=== PATIENT | female | born 1950 | race Caucasian/White ===

== ENCOUNTER 2022-12-11 20:25 | Emergency (ER) | payer MEDICARE, SELFPAY ==
[2022-12-11 20:26] VITALS: BP 182/103; PULSE 108; RESP 24; TEMP 35.7; O2SAT 108
--- NOTE | 2022-12-11 21:33 | CT_ITS ---
EXAM: CT Abdomen And Pelvis W/ Contrast Injection HISTORY: Suspect bowel obstruction TECHNIQUE: CT Abdomen And Pelvis W/ Contrast Injection A radiation dose optimization technique was used for this scan. COMPARISON: None. LIMITATIONS: None. FINDINGS: LOWER CHEST: 2 mm pulmonary nodule in the lingula. LIVER: Normal. GALLBLADDER/BILE DUCTS: Status post cholecystectomy. Dilated CBD measuring up to 15 mm with moderate intrahepatic biliary ductal dilatation.. PANCREAS: Prominent pancreatic duct measuring 4 mm.. SPLEEN: Normal. ADRENAL GLANDS: Normal. KIDNEYS/URETERS/BLADDER: Cystic changes in the kidneys, overall too small to characterize. No hydroureteronephrosis or radiopaque nephrolithiasis.. RETROPERITONEUM/AORTA: Normal. BOWEL/MESENTERY: Status post small bowel resection and reanastomosis in the midline lower abdomen. Focally dilated small bowel loops at the anastomosis without proximal dilatation, consistent with postsurgical ileus. Otherwise, no bowel dilatation or bowel wall thickening. APPENDIX: Not visualized. PERITONEUM: Normal. REPRODUCTIVE ORGANS: Status post hysterectomy. BONES/SOFT TISSUES: Multilevel degenerative changes. No acute osseous abnormality.. OTHER: None. CT/Abdomen/Pelvis W IV Cont ONLY IMPRESSION: 1. Status post small bowel resection with focal postsurgical ileus at the anastomosis. 2. Moderate intrahepatic and extrahepatic biliary ductal dilatation, may be normal in a postcholecystectomy patient, recommend correlation with biliary biochemistry. 3. Pulmonary nodule in the lingula measuring 2 mm. *Fleischner Society Recommendations (Radiology 2005;237:395-400.) (Follow-up and management of nodules smaller than 8 mm detected incidentally at non-screening CT. Newly detected indeterminate nodule in persons 35 years of age or older.) Low risk patient: Minimal or absent history of smoking and of other known risk factors. <= 4mm: No followup needed >4-6mm: Follow-up CT at 12 months, if unchanged - no further followup >6-8mm: Initial Follow-up CT at 6-12 months, then at 18-24 months if no change >8mm: Follow-up CT at 3, 9, and 24 months; FDG PET scan; and or biopsy High risk patient: History of smoking or of other known risk factors. <= 4mm: Follow-up CT at 12 months, if unchanged - no further followup >4-6mm: Initial Follow-up CT at 6-12 months, then at 18-24 months if no change >6-8mm: Initial Follow-up CT at 3-6 months, then at 9-12 and 24 months if no change >8mm: Follow-up CT at 3, 9, and 24 months; FDG PET scan; and or biopsy Note: Non-solid (ground-glass) or partly solid nodules may require longer follow-up to Electronically Signed: Travon Pantoja MD at 23:38 EDT ,
[2022-12-11 21:50] VITALS: BMI 24.5
[2022-12-11] MEDS: Morphine 4 MG/ML Syringe IV ×2 (22:06→22:45)
[2022-12-11] MEDS: Ondansetron 4 MG/2 ML Vial IV (22:06)
[2022-12-11 22:16] LABS: Absolute Lymphocyte Count 2.86 X10^3/uL (0.83-4.51); Absolute Neutrophil Count 5.3 X10^3/uL (2.0-7.7); Basophil# 0.06 X10^3/uL; Basophil% 0.6 % (0-1); Eosinophils% 2.1 % (0-5); Hematocrit 32.5 % (37-47); Hemoglobin 10.9 g/dL (12.0-15.0); Lymphocyte # 2.86 X10^3/ul (0.83-4.51); Lymphocyte % 30.6 % (19-41); Mean Corp Hgb Conc 33.5 g/dL (32-36); Mean Corpuscular Hgb 29.8 pg (27.0-32.0); Mean Corpuscular Volume 88.8 fL (81-99); Mean Platelet Vol. 9.4 fl (6.2-12.0); Monocyte# 0.87 X10^3/uL; Monocyte% 9.3 % (0-10); NRBC Flagged by Analyzer 0 % (0-5); Neutrophil # 5.33 X10^3/uL (2.7-7.7); Neutrophil % 57.1 % (47-70); Platelet Count 418 K/mm3 (150-450); RBC Distribution Width CV 13.9 % (11.6-14.6); RBC Distribution Width SD 45.2 fl (35.1-43.9); Red Blood Count 3.66 M/mm3 (4.2-5.4); White Blood Count 9.4 K/mm3 (4.4-11.0)
--- NOTE | 2022-12-11 22:19 | ED.VIS.GI ---
HPI HPI - GI History of Present Illness Chief Complaint: Abd Pain Detail of Chief Complaint: Abdominal pain with nausea concern for bowel obstruction Informant: patient and family Abdominal Pain/Flank Pain Onset: Today and Hours Context: Sudden Onset Timing: Continuous Quality: Cramping and Dull Location: - (Diffuse worse upper quadrant) Current Severity: Moderate Maximum Severity: Severe Worsened by: Food Relieved by: Nothing Nausea/Vomiting/Emesis GI Symptom: Positive for Nausea; Negative for Vomiting Diarrhea/Melena/Hematochezia GI Symptom: Negative for Diarrhea, Melena or Hematochezia Associated Symptoms Associated Symptoms: Negative for Dysuria, Frequency, Hematuria or Urgency Narrative Narrative: Patient is a 72-year-old woman with history of bowel obstruction with prior surgeries due to adhesions. She states she had 7 abdominal surgeries. She has had a total of 40% of her bowels removed. She does report nausea without vomiting. Last bowel movement was this morning. She states she passed gas only once today. She states this feels similar to when she has had a bowel obstruction in the past. She is complaining of colicky abdominal pain. She denies fever, chills night sweats. Denies headache, visual, ocular auditory symptoms. She denies cardiac or respiratory symptoms. She denies urologic symptoms. Prior similar symptoms: Yes Recent Illness/Hospitalization: No PFSH COUNTS INCLUDE 234 BEDS AT THE [facility] Medical History (Updated 12/11/22 @ 23:[address] Mika Anderson MD) Hypothyroidism Home Medications alprazolam 1 mg tablet (Xanax) 1 mg PO BID 12/11/22 [History Last Taken Unknown] apixaban 5 mg tablet (Eliquis) 5 mg PO BID 12/11/22 [History Last Taken Unknown] bupropion HCl 150 mg 24 hr tablet, extended release 150 mg PO BID 12/11/22 [History Last Taken Unknown] dicyclomine 10 mg capsule 20 mg PO TIDAC #20 CAPSULES 12/11/22 [Rx Last Taken Unknown] docusate sodium 100 mg capsule 100 mg PO BID 12/11/22 [History Last Taken Unknown] esomeprazole magnesium 20 mg capsule,delayed release 20 mg PO DAILY 12/11/22 [History Last Taken Unknown] ezetimibe 10 mg tablet 10 mg PO DAILY 12/11/22 [History Last Taken Unknown] levothyroxine 50 mcg tablet 50 mcg PO DAILY 12/11/22 [History Last Taken Unknown] ondansetron HCl 4 mg tablet 4 mg PO Q6H PRN Nausea 12/11/22 [History Last Taken Unknown] zolpidem 10 mg tablet (Ambien) 10 mg PO QHS 12/11/22 [History Last Taken Unknown] Allergy/AdvReac Type Severity Reaction Status Date / Time cefdinir [From Omnicef] Allergy Hives Verified 12/11/22 22:27 codeine Allergy NEEDS Verified 12/11/22 22:27 FOLLOW-UP latex Allergy Anaphylaxis Verified 12/11/22 22:27 prochlorperazine Allergy NEEDS Verified 12/11/22 22:47 [From Compazine] FOLLOW-UP shellfish derived Allergy Anaphylaxis Verified 12/11/22 22:27 levofloxacin [From Levaquin] AdvReac Vomiting Verified 12/11/22 22:27 [id number] Reductase AdvReac NEEDS Verified 12/11/22 22:27 Inhibitor FOLLOW-UP Surgical History (Updated 12/11/22 @ 22:32 by Carla Harrison Self) History of appendectomy History of cholecystectomy History of colon surgery Social History Smoking Status: Never smoker EXAM Physical Exam Const Vital Signs: 12/11/22 20:26 12/11/22 22:35 12/11/22 22:35 Temperature 96.3 F L 98 F 98.0 F Temperature Source Temporal Oral Oral Pulse Rate 108 H 90 Respiratory Rate 24 H 18 Blood Pressure 182/103 H 161/93 H Blood Pressure Mean 129 115 Pulse Ox 108 97 Oxygen Delivery Method Room Air Room Air [facility] History & Record Review Discussion w/independent historian: Patient and Family Additional record(s) reviewed:: Prior outpatient record (Patient was seen for abdominal pain July [address] Amador. She had a CAT scan at that time which revealed mild prominence of the biliary duct consistent with cholecystectomy. Pancreas, spleen and adrenal glands, kidney and ureters were unremarkable. The stomach and duodenum was unrem), Prior ED visit and Prior labs Lab Data Attestation: I reviewed the patient's lab results. Lab results narrative: CBC reveals anemia. Differential is unremarkable. Basic metabolic panel reveals a creatinine of 1.32 with a GFR 42. Labs: Laboratory Results - last 24 hr 12/11/22 12/11/22 20:09 20:09 WBC 9.4 RBC 3.66 L Hgb 10.9 L Hct 32.5 L MCV 88.8 MCH 29.8 MCHC 33.5 RDW Std Deviation 45.2 H RDW Coeff of Neno 13.9 Plt Count 418 MPV 9.4 Immature Gran % (Auto) 0.300 Neut % (Auto) 57.1 Lymph % (Auto) 30.6 [place] % (Auto) 9.3 Eos % (Auto) 2.1 Baso % (Auto) 0.6 Absolute Neuts (auto) 5.3 Absolute Lymphs (auto) 2.86 Nucleated RBC % 0 Sodium 139 Potassium 4.1 Chloride 112 H Carbon Dioxide 22.0 Anion Gap 5 BUN 18 Creatinine 1.32 H Estim Creat Clear Calc 30.92 Est GFR (MDRD) Af Amer 51 L Est GFR (MDRD) Non-Af 42 L BUN/Creatinine Ratio 13.6 Glucose 103 Calcium 8.7 Radiography Diagnostic Testing: Clinical Impression(s) from Imaging Studies Abdomen/Pelvis CT 12/11/22 21:33 IMPRESSION: 1. Status post small bowel resection with focal postsurgical ileus at the anastomosis. 2. Moderate intrahepatic and extrahepatic biliary ductal dilatation, may be normal in a postcholecystectomy patient, recommend correlation with biliary biochemistry. 3. Pulmonary nodule in the lingula measuring 2 mm. *Fleischner Society Recommendations (Radiology 2005;237:395-400.) (Follow-up and management of nodules smaller than 8 mm detected incidentally at non-screening CT. Newly detected indeterminate nodule in persons 35 years of age or older.) Low risk patient: Minimal or absent history of smoking and of other known risk factors. <= 4mm: No followup needed >4-6mm: Follow-up CT at 12 months, if unchanged - no further followup >6-8mm: Initial Follow-up CT at 6-12 months, then at 18-24 months if no change >8mm: Follow-up CT at 3, 9, and 24 months; FDG PET scan; and or biopsy High risk patient: History of smoking or of other known risk factors. <= 4mm: Follow-up CT at 12 months, if unchanged - no further followup >4-6mm: Initial Follow-up CT at 6-12 months, then at 18-24 months if no change >6-8mm: Initial Follow-up CT at 3-6 months, then at 9-12 and 24 months if no change >8mm: Follow-up CT at 3, 9, and 24 months; FDG PET scan; and or biopsy Note: Non-solid (ground-glass) or partly solid nodules may require longer follow-up to Electronically Signed: Travon Pantoja MD at 23:38 EDT Reading Location ID and State: [id number] Tel , Service support , Treatment and Re-Evaluation :: Patient was informed of CAT scan results. Patient will receive dose of Bentyl in the emergency [place] and prescription to go home with. She was instructed to increase her Metamucil from once a day to twice a day. Discharge Plan Triage Chief Complaint: Abd Pain ED Provider: Mika Anderson Dx/Rx/DC Orders Clinical Impression: Ileus, Nausea, Hypertension, Anxiety, Acute generalized abdominal pain, Anticoagulant long-term use Instructions: Ileus Prescriptions: New dicyclomine 10 mg capsule 20 mg PO TIDAC Qty: 20 0RF No Action alprazolam [Xanax] 1 mg Tablet 1 mg PO BID ondansetron HCl [Zofran] 4 mg Tablet 4 mg PO Q6H PRN (Reason: Nausea) levothyroxine 50 mcg Tablet 50 mcg PO DAILY docusate sodium 100 mg capsule 100 mg PO BID Label Comments: TAKE 1 CAPSULE BY MOUTH TWICE DAILY zolpidem [Ambien] 10 mg Tablet 10 mg PO QHS esomeprazole magnesium 20 mg capsule,delayed release(DR/EC) 20 mg PO DAILY ezetimibe 10 mg Tablet 10 mg PO DAILY bupropion HCl 150 mg tablet extended release 24 hr 150 mg PO BID Eliquis 5 mg Tablet 5 mg PO BID Primary Care Provider: Care Physician,No Primary Referrals: Care Physician,No Primary [Primary Care Provider] - Doctor,Your [Non-Staff] - 3-5 Days if not improving Activity Restrictions/Additional Instructions: Increase Metamucil to twice a day for the next several days. Disposition Disposition: Home, Self Care
[2022-12-11 22:30] LABS: Anion Gap 5 (5-15); BUN 18 mg/dL (7-18); BUN/Creat Ratio 13.6 RATIO (10-20); Calcium,Total 8.7 mg/dL (8.5-10.1); Chloride 112 mmol/L (98-107); Creatinine, Serum 1.32 mg/dL (0.55-1.02); EST Glomerular Filtration Rate 42 mL/min (>60); Est Glom Filt Rate - Afr Amer 51 mL/min (>60); Estimated Creatinine Clearance 30.92 ml/min; Glucose 103 mg/dL (74-106); Potassium 4.1 mmol/L (3.5-5.1); Sodium Level 139 mmol/L (136-145)
[2022-12-11] MEDS: 0.9% Normal Saline 1,000 ML 150 ML IV (22:34)
[2022-12-11 22:35] VITALS: BP 161/93; PULSE 90; RESP 18; TEMP 36.6; TEMP 36.7; O2SAT 97
[2022-12-11] MEDS: Dicyclomine 10 MG Capsule 20 MG PO (23:58)
[2022-12-12 00:08] VITALS: BP 154/67; PULSE 81; RESP 18; O2SAT 98
== END 2022-12-12 00:35 | disposition home or self-care (01) ==
PROVIDERS: Emergency Provider Emergency Medicine; Visit Provider Emergency Medicine
DX: R10.84 Generalized abdominal pain (principal); K56.7 Ileus, unspecified; Z79.01 Long term (current) use of anticoagulants; I10 Essential (primary) hypertension; F41.9 Anxiety disorder, unspecified; R11.0 Nausea; E03.9 Hypothyroidism, unspecified; Z79.899 Other long term (current) drug therapy; Z90.49 Acquired absence of other specified parts of digestive tract
CPT/HCPCS: 36415; 74177; 80048; 85025; 96374; 96375; 96376; 99284; J7030; Q9967; A4216; J2405

== ENCOUNTER 2023-03-16 03:33 | Inpatient (IN) | payer MEDICARE, SELFPAY ==
[2023-03-16 03:35] VITALS: BP 124/94; PULSE 74; RESP 18; TEMP 35.8; O2SAT 100; BMI 23.4
--- NOTE | 2023-03-16 03:41 | CT_ITS ---
EXAM: CT Abdomen And Pelvis W/ Contrast Injection HISTORY: left sided abd pain, n/v TECHNIQUE: Routine protocol CT abdomen pelvis. IV Contrast: IV 75mL Isovue-370 . Oral Contrast: without. Sagittal and coronal images were reconstructed. RADIATION DOSAGE (If Supplied By Facility): CTDIvol = ( 12.65 ) mGy, DLP = ( 432.94 ) mGycm Individualized dose optimization techniques were used for this CT. COMPARISON: CT abdomen and pelvis 12/11/2022. LIMITATIONS: None. FINDINGS: LOWER CHEST: Dependent atelectasis in the lung bases.. LIVER: Small cyst. GALLBLADDER/BILE DUCTS: Gallbladder surgically absent. Common bile duct and intrahepatic ducts are dilated, not significantly changed compared to prior study.. PANCREAS: Unremarkable. SPLEEN: Unremarkable. ADRENAL GLANDS: Unremarkable. KIDNEYS / URETERS: Unremarkable. BOWEL / MESENTERY: Surgical clips in the mid and lower abdomen. Mild focally dilated small bowel left lower abdomen at the anastomosis with fluid level, similar but slightly increased compared to prior study, possibly postsurgical distortion. No bowel obstruction. Moderate amount stool throughout the colon. APPENDIX: Not identified. PERITONEUM: No free air. No free fluid. VESSELS: Abdominal aorta is normal caliber. RETROPERITONEUM: Unremarkable. REPRODUCTIVE ORGANS: Uterus not identified. BLADDER: Unremarkable. ABDOMINAL WALL: Unremarkable. BONES: No acute abnormality. OTHER: None. CT/Abdomen/Pelvis W IV Cont ONLY IMPRESSION: Mild focally dilated small bowel in the left lower abdomen near the surgical anastomosis, similar but increased compared to prior May BE related to postsurgical change. Focal ileus, enteritis, or partial low-grade small bowel obstruction not entirely excluded. Biliary dilatation is stable compared to prior study postcholecystectomy. Electronically Signed: Jessie Brasher MD at 5:35 EDT ,
--- NOTE | 2023-03-16 03:45 | ED.VIS.GI ---
HPI HPI - GI History of Present Illness Chief Complaint: Abd Pain Informant: patient Abdominal Pain/Flank Pain Onset: Days (2) Context: Gradual Onset Timing: Continuous Quality: Aching Location: - (Throughout the left abdomen) Current Severity: Severe Maximum Severity: Severe Worsened by: Nothing Relieved by: Nothing Nausea/Vomiting/Emesis GI Symptom: Positive for Nausea and Vomiting (2 days ago near the onset but none since) Quality: Positive for Nonbilious; Negative for Blood streaks, Coffee ground or Hematemesis Diarrhea/Melena/Hematochezia GI Symptom: Positive for - (Last bowel movement was a week ago and it was dark but not bloody) Associated Symptoms Associated Symptoms: Negative for Dysuria, Frequency or Hematuria Narrative Narrative: Patient has been having abdominal pain for the last couple days, she vomited near the onset but has not since. Tonight it is started to go into her left low back. She states it feels like some type of bowel pain, however she is not exactly sure; she states she has had 7 surgeries on her bowels in the past. At least one of them was due to adhesions she states. [facility] Medical History (Updated 03/16/23 @ 06:[address] Jose Stanton MD) Hypothyroidism Home Medications alprazolam 1 mg tablet (Xanax) 1 mg PO BID 12/11/22 [History Last Taken Unknown] apixaban 5 mg tablet (Eliquis) 5 mg PO BID 12/11/22 [History Last Taken Unknown] bupropion HCl 150 mg 24 hr tablet, extended release 150 mg PO BID 12/11/22 [History Last Taken Unknown] dicyclomine 10 mg capsule 20 mg (2 x 10 mg) PO TIDAC #20 CAPSULES 12/11/22 [Rx Last Taken Unknown] docusate sodium 100 mg capsule 100 mg PO BID 12/11/22 [History Last Taken Unknown] esomeprazole magnesium 20 mg capsule,delayed release 20 mg PO DAILY 12/11/22 [History Last Taken Unknown] ezetimibe 10 mg tablet 10 mg PO DAILY 12/11/22 [History Last Taken Unknown] levothyroxine 50 mcg tablet 50 mcg PO DAILY 12/11/22 [History Last Taken Unknown] ondansetron HCl 4 mg tablet 4 mg PO Q6H PRN Nausea 12/11/22 [History Last Taken Unknown] zolpidem 10 mg tablet (Ambien) 10 mg PO QHS 12/11/22 [History Last Taken Unknown] Allergy/AdvReac Type Severity Reaction Status Date / Time cefdinir [From Omnicef] Allergy Hives Verified 12/11/22 22:27 codeine Allergy NEEDS Verified 12/11/22 22:27 FOLLOW-UP latex Allergy Anaphylaxis Verified 12/11/22 22:27 prochlorperazine Allergy NEEDS Verified 12/11/22 22:47 [From Compazine] FOLLOW-UP shellfish derived Allergy Anaphylaxis Verified 03/16/23 03:34 levofloxacin [From Levaquin] AdvReac Vomiting Verified 12/11/22 22:27 [id number] Reductase AdvReac NEEDS Verified 12/11/22 22:27 Inhibitor FOLLOW-UP Surgical History History of appendectomy History of cholecystectomy History of colon surgery Social History Smoking Status: Never smoker ROS ROS ED Constitutional Constitutional ED: Reports malaise and poor appetite; Denies chills or fever(s) Eyes Eyes: Denies change in vision or diplopia ENT ENT ED: Denies rhinorrhea or sore throat Cardiovascular Cardiovascular: Denies chest pain or palpitations Respiratory/Chest Respiratory/Chest: Denies cough or dyspnea Gastrointestinal Gastrointestinal: Reports abdominal pain, nausea and vomiting; Denies diarrhea, hematemesis or hematochezia Genitourinary Genitourinary ED: Reports decreased urination; Denies dysuria or hematuria Musculoskeletal Musculoskeletal: Reports back pain; Denies neck pain Integumentary Denies abscess or rash Neurologic Neurologic: Denies headache(s), paresthesias or weakness Psychiatric Psychiatric: Denies anxiety or suicidal thoughts EXAM Physical Exam Const Vital Signs: 03/16/23 03:35 Temperature 96.5 F L Temperature Source Temporal Pulse Rate 74 Respiratory Rate 18 Blood Pressure 124/94 H Blood Pressure Mean 104 Pulse Ox 100 Positive well nourished and well developed General Appearance ED: well developed and NAD HEENT Reports moist mucous membranes normocephalic and atraumatic Eyes PERRL and EOMs intact bilaterally Neck full ROM and supple Resp normal respiratory effort and clear to auscultation bilaterally Cardio regular rate, regular rhythm and no murmurs GI non-distended GI Narrative: Moderate to severe tenderness throughout the left side without guarding or rebound tenderness. No pulsatile mass palpable. Auscultation: normoactive bowel sounds Palpation: soft Back/Spine no CVA tenderness General Back: other FROM Extremity normal to inspection General Extremety ED: Negative for edema, pulses abnormal or tenderness General Extremity: Negative for edema or pulses abnormal Neuro oriented x3, CN's II-XII intact bilaterally and no sensory deficits noted Sensorium / Orientation: awake and alert Motor Exam: strength 5/5 throughout Skin no rashes or lesions noted and no wounds MDM MDM MDM Narrative Medical decision making narrative: CT obtained in addition to labs, IV fluids, Zofran, morphine given for symptoms. I reviewed the CT images and the interpretation which I agree with, basically there is a narrowing at the anastomosis which is where the patient is hurting in the left lower quadrant mostly, that may be consistent with a partial small bowel obstruction, difficult to tell according to the radiologist if this is just postsurgical change. Given her focal symptoms and the fact that she does not have pain here all the time, patient has been fairly miserable over the past 48 hours or so, lives by herself, and agrees with staying in the hospital for further evaluation. Will maintain n.p.o. Discussed with surgery Dr. Umanzor, who reviewed the images as well. He recommends placing an NG in the ED in preparation for small bowel follow-through. Lab Data Attestation: I reviewed the patient's lab results. Labs: Laboratory Results - last 24 hr 03/16/23 03/16/23 03:45 05:13 WBC 8.4 RBC 3.96 L Hgb 11.4 L Hct 35.4 L MCV 89.4 MCH 28.8 MCHC 32.2 RDW Std Deviation 49.0 H RDW Coeff of Neno 14.7 H Plt Count 361 MPV 10.0 Immature Gran % (Auto) 0.400 Neut % (Auto) 48.5 Lymph % (Auto) 40.6 [place] % (Auto) 8.3 Eos % (Auto) 1.1 Baso % (Auto) 1.1 H Absolute Neuts (auto) 4.1 Absolute Lymphs (auto) 3.41 Nucleated RBC % 0 Sodium 139 Potassium 4.1 Chloride 109 H Carbon Dioxide 23.0 Anion Gap 7 BUN 18 Creatinine 1.49 H Estim Creat Clear Calc 26.13 Est GFR (MDRD) Af Amer 44 L Est GFR (MDRD) Non-Af 37 L BUN/Creatinine Ratio 12.1 Glucose 100 Calcium 9.0 Total Bilirubin 0.60 AST 18 ALT 18 Alkaline Phosphatase 105 Total Protein 7.5 Albumin 3.6 Globulin 3.9 Albumin/Globulin Ratio 0.9 Urine Color Yellow Urine Clarity Clear Urine pH 6.0 Ur Specific [place] 1.010 Urine Protein Negative Urine Glucose (UA) Normal Urine Ketones Negative Urine Occult Blood Negative Urine Nitrite Negative Urine Bilirubin Negative Urine Urobilinogen Normal Ur Leukocyte Esterase 25 H Urine RBC 0 SEEN Urine WBC 0-5 SEEN Ur Squamous Epith Cells 0 SEEN Urine Bacteria 0 SEEN Urine Mucus 0 SEEN Radiography Diagnostic Testing: Clinical Impression(s) from Imaging Studies Abdomen/Pelvis CT 03/16/23 03:41 IMPRESSION: Mild focally dilated small bowel in the left lower abdomen near the surgical anastomosis, similar but increased compared to prior May BE related to postsurgical change. Focal ileus, enteritis, or partial low-grade small bowel obstruction not entirely excluded. Biliary dilatation is stable compared to prior study postcholecystectomy. Electronically Signed: Jessie Brasher MD at 5:35 EDT , Management Discussion w/another healthcare provider: Hospitalist and Lead Worker Of Housekeeping And Laundry (Surgery) Discharge Plan Dx/Rx/DC Orders Clinical Impression: Partial small bowel obstruction Disposition Disposition: Acute Care Hospital [facility]
[2023-03-16 03:50] LABS: Absolute Lymphocyte Count 3.41 X10^3/uL (0.83-4.51); Absolute Neutrophil Count 4.1 X10^3/uL (2.0-7.7); Basophil# 0.09 X10^3/uL; Basophil% 1.1 % (0-1); Eosinophil# 0.09 X10^3/uL; Eosinophils% 1.1 % (0-5); Hematocrit 35.4 % (37-47); Hemoglobin 11.4 g/dL (12.0-15.0); Lymphocyte # 3.41 X10^3/ul (0.83-4.51); Lymphocyte % 40.6 % (19-41); Mean Corp Hgb Conc 32.2 g/dL (32-36); Mean Corpuscular Hgb 28.8 pg (27.0-32.0); Mean Corpuscular Volume 89.4 fL (81-99); Monocyte% 8.3 % (0-10); NRBC Flagged by Analyzer 0 % (0-5); Neutrophil # 4.07 X10^3/uL (2.7-7.7); Neutrophil % 48.5 % (47-70); Platelet Count 361 K/mm3 (150-450); RBC Distribution Width CV 14.7 % (11.6-14.6); Red Blood Count 3.96 M/mm3 (4.2-5.4); White Blood Count 8.4 K/mm3 (4.4-11.0)
[2023-03-16] MEDS: 0.9% Normal Saline 1,000 ML 1000 ML IV (03:56)
[2023-03-16] MEDS: Ondansetron 4 MG/2 ML Vial IV ×3 (03:56→15:17)
[2023-03-16] MEDS: Morphine 4 MG/ML Syringe IV (03:57)
[2023-03-16 04:28] LABS: ALB/GLOB Ratio 0.9 RATIO (0.9-2.4); AST(SGOT) 18 U/L (15-37); Alanine Aminotransfer ALT/SGPT 18 U/L (13-56); Albumin, Serum 3.6 g/dL (3.2-5.0); Alkaline Phosphatase 105 U/L (45-117); Anion Gap 7 (5-15); BUN 18 mg/dL (7-18); BUN/Creat Ratio 12.1 RATIO (10-20); Chloride 109 mmol/L (98-107); Creatinine, Serum 1.49 mg/dL (0.55-1.02); EST Glomerular Filtration Rate 37 mL/min (>60); Est Glom Filt Rate - Afr Amer 44 mL/min (>60); Estimated Creatinine Clearance 26.13 ml/min; Globulin 3.9 g/dL (2.2-4.2); Glucose 100 mg/dL (74-106); Potassium 4.1 mmol/L (3.5-5.1); Protein, Total 7.5 g/dL (6.4-8.2); Sodium Level 139 mmol/L (136-145)
[2023-03-16 05:19] LABS: Bacteria 0 SEEN /hpf (None Seen); Mucous, Urine 0 SEEN /hpf (<or=2+); Red Blood Cells-Urine 0 SEEN /hpf (0-5); Squamous Epithelial Cells - UA 0 SEEN /hpf (5-10)
[2023-03-16 05:20] LABS: Color, Urine Yellow (Yellow); Glucose, Dipstick Normal (Normal); Ketone-Dipstick Negative (Negative); Leukocyte Esterase-Dipstick 25 /ul (Negative); Nitrite-Dipstick Negative (Negative); Occult Blood-Urine Negative /ul (Negative); Protein-Dipstick Negative (Negative); Urine Bilirubin Dipstick Negative (Negative); Urine Clarity Clear (Clear); Urine Urobilinogen Normal (Normal)
[2023-03-16 05:34] LABS: White Blood Cells 0-5 SEEN /hpf (0-5)
--- NOTE | 2023-03-16 06:22 | RAD_ITS ---
INDICATION: NG Insertion EXAMINATION/TECHNIQUE: X-RAY - XR Abdomen 1 View portable. 6:43 AM COMPARISON: FINDINGS: Single view included the mid chest and upper abdomen. Tip of the nasogastric tube is in the mid stomach. No dilated bowel in the upper abdomen. Lung bases are not well assessed due to the technique. RAD/Abdomen Single View (Portable) IMPRESSION: NG tube as described. Electronically Signed: Jessie Brasher MD at 7:06 EDT ,
--- NOTE | 2023-03-16 06:31 | HP.PCM.HOS_ITS ---
HPI - General General Date of Admission: 03/16/23 Date of Service: 03/16/23 Chief Complaint: Abdominal pain, N/V. HPI Narrative The patient is a 72 y/o F w/ PMHx: Hypothyroidism, Anxiety and Depression, Hx VTE, HLD, GERD, Hx SBO s/p 7 prior abdominal surgeries including bowel resection who presents to the [facility] ED on 03/16/23 with history of onset abdominal pain over the last 2 days continuous in nature, aching, associated with nausea and emesis with pain primarily focally in the left lower quadrant and no severe marked distention however patient reports last bowel movement the Sunday prior and last flatus on day prior earlier in the day prompting eventual ED evaluation secondary to concerns bowel related with associated decreased oral intake. She does report that this is different than her prior bowel obstructions and the fact that is more focal pain and more severe and sharp. She rates her pain initially 10 of 10 in severity but following current interventions 5 out of 10 in severity. Work-up in the ED included T96.5, heart rate 74, BP 124/94, respiratory rate 18, #room air, CBC with WC 8.4, hemoglobin 11.4, MCV 89.4, pl atelet 361 without marked shift, CMP with chloride 109, BUN/creatinine 18/1.49, medic profile unremarkable, urinalysis unremarkable, CT abdomen pelvis with mildly focally dilated small bowel in the left lower abdomen near the surgical anastomosis similar but increased compared to prior possibly related to postsurgical change however focal ileus, enteritis or partial low-grade small bowel obstruction cannot be entirely excluded, biliary dilatation is stable compared to prior study postcholecystectomy. In the ED patient ministered 1 L normal saline, Zofran 4 mg IV x1 as well as morphine 4 mg IV x1. ED discussed case with Dr. Umanzor, general surgery who requested NG tube be placed and small bowel follow-through be initiated. [facility] Medical History (Updated 03/16/23 @ 06:[address] Jessica Thomas MD) Anxiety and depression GERD (gastroesophageal reflux disease) History of small bowel obstruction History of venous thromboembolism HLD (hyperlipidemia) Hypothyroidism Home Medications alprazolam 1 mg tablet (Xanax) 1 mg PO BID 12/11/22 [History Last Taken Unknown] apixaban 5 mg tablet (Eliquis) 5 mg PO BID 12/11/22 [History Last Taken Unknown] bupropion HCl 150 mg 24 hr tablet, extended release 150 mg PO BID 12/11/22 [History Last Taken Unknown] dicyclomine 10 mg capsule 20 mg (2 x 10 mg) PO TIDAC #20 CAPSULES 12/11/22 [Rx Last Taken Unknown] docusate sodium 100 mg capsule 100 mg PO BID 12/11/22 [History Last Taken Unknown] esomeprazole magnesium 20 mg capsule,delayed release 20 mg PO DAILY 12/11/22 [History Last Taken Unknown] ezetimibe 10 mg tablet 10 mg PO DAILY 12/11/22 [History Last Taken Unknown] levothyroxine 50 mcg tablet 50 mcg PO DAILY 12/11/22 [History Last Taken Unknown] ondansetron HCl 4 mg tablet 4 mg PO Q6H PRN Nausea 12/11/22 [History Last Taken Unknown] zolpidem 10 mg tablet (Ambien) 10 mg PO QHS 12/11/22 [History Last Taken Unknown] Allergy/AdvReac Type Severity Reaction Status Date / Time cefdinir [From Omnicef] Allergy Hives Verified 12/11/22 22:27 codeine Allergy NEEDS Verified 12/11/22 22:27 FOLLOW-UP latex Allergy Anaphylaxis Verified 12/11/22 22:27 prochlorperazine Allergy NEEDS Verified 12/11/22 22:47 [From Compazine] FOLLOW-UP shellfish derived Allergy Anaphylaxis Verified 03/16/23 03:34 levofloxacin [From Levaquin] AdvReac Vomiting Verified 12/11/22 22:27 [id number]-[id number] Reductase AdvReac NEEDS Verified 12/11/22 22:27 Inhibitor FOLLOW-UP Family History (Updated 03/16/23 @ 06:[address] Jessica Thomas MD) Mother Heart disease COPD (chronic obstructive pulmonary disease) Father Heart disease Hypertension CAD (coronary artery disease) Myocardial infarction Surgical History (Updated 03/16/23 @ 06:[address] Jessica Thomas MD) History of appendectomy History of cholecystectomy History of colon surgery History of total abdominal hysterectomy Social History (Updated 03/16/23 @ 06:[address] Jessica Thomas MD) household members: none Smoking Status: Never smoker alcohol intake: never substance use type: does not use ROS ROS Narrative Admission Review of Systems: CONSTITUTIONAL: No weight loss, fever, chills, + weakness or fatigue. HEENT: Eyes: No visual loss, blurred vision, double vision or yellow sclerae. Ears, Nose, Throat: No hearing loss, sneezing, congestion, runny nose or sore throat. SKIN: No rash or itching, lesions, wounds. CARDIOVASCULAR: No chest pain, chest pressure or chest discomfort, palpitations, edema, orthopnea, syncopal events. RESPIRATORY: No shortness of breath, cough or sputum, wheezing, hemoptysis. GASTROINTESTINAL: + anorexia, nausea, vomiting, abdominal pain, lack of flatus, decreased BM history. No melena, BRBPR. GENITOURINARY: No dysuria, frequency, urgency or retention. NEUROLOGICAL: No headache, dizziness, syncope, paralysis, ataxia, numbness or tingling in the extremities, focal weakness, change in bowel or bladder control, seizure. MUSCULOSKELETAL: + muscle, back pain, joint pain or stiffness. HEMATOLOGIC: No anemia, bleeding or bruising. LYMPHATICS: No enlarged nodes. No history of splenectomy. PSYCHIATRIC: + history of depression or anxiety. ENDOCRINOLOGIC: No reports of sweating, cold or heat intolerance. No polyuria or polydipsia. ALLERGIES: + History of hives and anaphylaxis. Vital Signs Vital Signs Vital Signs: 03/16/23 03:35 Temperature 96.5 F L Temperature Source Temporal Pulse Rate 74 Respiratory Rate 18 Blood Pressure 124/94 H Blood Pressure Mean 104 Pulse Ox 100 Weight Weight: 124 lb 1.924 oz Body Mass Index (BMI) 23.4 Physical Exam Narrative Physical Examination: General: Awake, alert, oriented x 3 and cooperative, seated upright in the bed, fatigued, reports pain currently 5 out of 10 in severity in the left lower quadrant, intermittently anxious and occasionally near tearful. Skin: Normal color, normal turgor, no icterus, no cyanosis. HEENT: AT/NC, EOMI, PERRLA, dry MM, no carotid bruits or JVD noted. Lungs: CTA bilaterally, moderate effort, mild decrease BL bases, no rales, ronchi or wheezing. Heart: Regular rate and rhythm; no gallop, rub audible. Abdomen: Soft, notable tenderness to palpation primarily in the left lower quadrant with voluntary guarding, no marked distention obvious, mildly reduced bowel sounds in the left lower quadrant and left upper quadrant, hyperactive bowel sounds right lower quadrant, no obvious HSM but difficult evaluation given pain. Extremities: No cyanosis, clubbing, or edema. Neurological: Patient awake, alert, oriented as noted, cognitive function intac t; pupils equally reactive to light and accommodation, cranial nerves II-XII grossly normal, moving all 4 extremities, no focal deficits, strength moderately to severely global decrease secondary to acute presentation. Psychiatric: Affect appears anxious, near tearful when discussing her mother who passed of COPD, underlying history of anxiety and depression. Results Lab / Micro Data 03/16/23 03:45 03/16/23 03:45 Labs: Laboratory Results - last 24 hr 03/16/23 03:45: WBC 8.4, RBC 3.96 L, Hgb 11.4 L, Hct 35.4 L, MCV 89.4, MCH 28.8, MCHC 32.2, RDW Std Deviation 49.0 H, RDW Coeff of Neno 14.7 H, Plt Count 361, MPV 10.0, Immature Gran % (Auto) 0.400, Neut % (Auto) 48.5, Lymph % (Auto) 40.6, [place] % (Auto) 8.3, Eos % (Auto) 1.1, Baso % (Auto) 1.1 H, Absolute Neuts (auto) 4.1, Absolute Lymphs (auto) 3.41, Nucleated RBC % 0, Sodium 139, Potassium 4.1, Chloride 109 H, Carbon Dioxide 23.0, Anion Gap 7, BUN 18, Creatinine 1.49 H, Estim Creat Clear Calc 26.13, Est GFR (MDRD) Af Amer 44 L, Est GFR (MDRD) Non-Af 37 L, BUN/Creatinine Ratio 12.1, Glucose 100, Calcium 9.0, Total Bilirubin 0.60, AST 18, ALT 18, Alkaline Phosphatase 105, Total Protein 7.5, Albumin 3.6, Globulin 3.9, Albumin/Globulin Ratio 0.9 03/16/23 05:13: Urine Color Yellow, Urine Clarity Clear, Urine pH 6.0, Ur Specific Dorothy 1.010, Urine Protein Negative, Urine Glucose (UA) Normal, Urine Ketones Negative, Urine Occult Blood Negative, Urine Nitrite Negative, Urine Bilirubin Negative, Urine Urobilinogen Normal, Ur Leukocyte Esterase 25 H, Urine RBC 0 SEEN, Urine WBC 0-5 SEEN, Ur Squamous Epith Cells 0 SEEN, Urine Bacteria 0 SEEN, Urine Mucus 0 SEEN Radiology Impression Abdomen/Pelvis CT 03/16/23 03:41 IMPRESSION: Mild focally dilated small bowel in the left lower abdomen near the surgical anastomosis, similar but increased compared to prior May BE related to postsurgical change. Focal ileus, enteritis, or partial low-grade small bowel obstruction not entirely excluded. Biliary dilatation is stable compared to prior study postcholecystectomy. Electronically Signed: Jessie Brasher MD at 5:35 EDT , Assessment & Plan Assessment/Plan (1) Partial small bowel obstruction: PLAN: Plan The patient is a 72 y/o F w/ PMHx: Hypothyroidism, Anxiety and Depression, Hx VTE, HLD, GERD, Hx SBO s/p 7 prior abdominal surgeries including bowel resection who presents to the [facility] ED on 03/16/23 with history of onset abdominal pain over the last 2 days continuous in nature, aching, associated with nausea and emesis with pain primarily focally in the left lower quadrant and no severe marked distention however patient reports last bowel movement the Sunday prior and last flatus on day prior earlier in the day prompting eventual ED evaluation secondary to concerns bowel related with associated decreased oral intake. #1. Acute intractable abdominal pain secondary to possible partial low-grade small bowel obstruction: CT abdomen pelvis with mildly focally dilated small bowel in the left lower abdomen near the surgical anastomosis similar but increased compared to prior possibly related to postsurgical change however focal ileus, enteritis or partial low-grade small bowel obstruction cannot be entirely excluded, biliary dilatation is stable compared to prior study postcholecystectomy. Will admit to MS, maintain on IVFs, continue NGT to suction, strict I&Os, IV pain/anti-emetics PRN, serial KUB as needed to montior bowel function, PPI IV, maintain NPO on bowel rest. General surgery consulted and current plan for small bowel follow-through. #2. Anxiety and depression: We will temporally hold patient home bupropion regimen, will have as needed low-dose Ativan for anxiety and hold her Xanax regimen. #3. Hypothyroidism: We will temporally hold patient home levothyroxine regimen. #4. Hyperlipidemia: We will hold patient home ezetimibe regimen. #5. History VTE: Notes history of remote DVT 3-4 years prior and was told at that time she would require continued chronic anticoagulation, but unclear exact reason for continuation. #6. GERD: We will maintain IV PPI. #7. DVT prophylaxis: We will temporally hold patient home Eliquis regimen and per surgery request hold on further anticoagulation in case of OR needs. #8. Code status: Full Code. Admission Evaluation Time spent evaluating chart, patient history, patient evaluation, care planning and discussion with specialists: 75 minutes. Charges/Coding Visit Charges Inpatient E&M: 91546 Init Hosp L3
[2023-03-16 06:45] VITALS: BP 153/112; PULSE 85; RESP 18; TEMP 36.4; O2SAT 99
[2023-03-16 07:37] VITALS: BMI 22.6
[2023-03-16 07:53] VITALS: BP 144/97; PULSE 69; RESP 16; TEMP 36.4; O2SAT 100
[2023-03-16] MEDS: 0.9% Normal Saline 1,000 ML 100 ML IV ×2 (08:08→17:22)
--- NOTE | 2023-03-16 08:50 | RAD_ITS ---
Small bowel series Indication: Small bowel obstruction Technique: Immediate and 6 hour abdomen images obtained following injection of Gastrografin through existing esophagogastric tube. No fluoroscopy time. 2 overhead images. FINDINGS: Initial image demonstrates normal opacification of the stomach and proximal small bowel. No dilated loops of air-filled small bowel. At 6 hours, there is normal passage of contrast into the colon. No dilated small bowel on 6 hour image. RAD/Small Bowel Series Only IMPRESSION: 1. Successful Gastrografin challenge. No bowel obstruction. Documentation of contrast in the colon at 6 hours. Electronically Signed: Fox Han (Brooks), at 16:19 EDT ,
[2023-03-16] MEDS: Morphine 2 MG/ML Syringe IV ×4 (09:08→23:38)
--- NOTE | 2023-03-16 10:57 | EX.PCM.CON.S ---
Assessment & Plan Assessment/Plan (1) Partial small bowel obstruction: PLAN: This is a 72-year-old female, with a past history of multiple small bowel obstructions requiring surgery, who presents with signs and symptoms of abdominal pain, constipation, and nausea. CT suggests possible partial small bowel obstruction. Patient has tenderness on exam. In my review of the patient's history I clarify with her that her prior resections involved her small intestine and not her colon as was previously reported. Given the large amount of small intestine resected, she admits she is now considered short gut syndrome. This fits better with her CT imaging which shows normal length colon, but abbreviated small bowel segment with a anastomosis within the mid small bowel. There also appears to be some chronic dilation of this anastomosis. I did not appreciate any transition points within the small bowel. I did observe significant fecal burden throughout the entirety of the colon and rectum. Therefore I have shared with Mrs. Escobar that I would recommend transfer to a tertiary facility should she proved to have a small bowel obstruction with need for intervention, but that I felt this was unlikely based on her history and imaging findings. My reasoning for this recommendation for transfer includes the inability to Nicole make total parenteral nutrition to an individual patient's needs. To better investigate her current bowel function I suggested we initiate a small bowel follow-through via her nasogastric tube. This was initiated this morning and has been followed up with a 6-hour plain film at 1500 this afternoon. This study shows transit of contrast throughout her bowel, but with patient is visited 45 minutes later she still denies any return of bowel function apart from a single episode of flatus. She does report improvements in her abdominal discomfort?particularly of her left lower abdominal quadrant. ? Await return of bowel function ? If patient experiences return of bowel function with plan to remove her nasogastric tube and initiate liquid diet (2) Constipation: HPI Consult Data Date of Consult: 03/16/23 HPI Narrative Reason for Consultation: Small bowel obstruction HPI Narrative: KAITLYN ESCOBAR, is a 72 F who presents to [facility] with complaints of constipation and abdominal pain. She reports her last bowel movement was 03/11/2023 and she began with pain of her abdomen on 03/14/2023. She notified her primary care provider of this change and she was advised to present to the hospital, but she elected to wait an additional day when the pain persisted she decided to present. Along with the above symptoms she has some associated nausea but no vomiting. Considering her constipation, she states that she was taking MiraLAX twice a day to try to have a bowel movement. She denies any use of pain medications at home. When asked about her fluid intake, she states she prefers to drink iced tea. ER work-up was notable for normal CMP, but CT imaging of the abdomen pelvis showed concern for possible small bowel obstruction?occasioning this consult. NG tube was placed by emergency medicine and patient was admitted to the floor. Patient has a history of hysterectomy, appendectomy, cholecystectomy, small bowel resection, and several adhesiolysis procedures. She states her trouble with bowel obstructions began following a bleeding delivery at the age of 32 or 33. She estimates that she has had 7 prior admissions for small bowel obstructions in her lifetime. She notes that the most recent obstruction led to her having 40% of her lower bowel removed. She states this procedure was further complicated by the development of abscesses TPN administration. This was reportedly done by Dr. Chicas formerly of [facility] who has since moved to [place]. 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 Ms. Escobar denies any recent colonoscopies and states that she had a single colonoscopy approximately 20 years ago, but reports that her last evaluation for this procedure was in [facility] and she was advised to forego any colonoscopies as she was more likely to be at risk for colon perforation and development of colon cancer. [facility] Medical History (Updated 03/16/23 @ 17:[address] Lobo Umanzor MD) Anxiety and depression Chronic anemia CKD (chronic kidney disease), stage III Depression DVT (deep venous thrombosis) GERD (gastroesophageal reflux disease) History of small bowel obstruction History of venous thromboembolism HLD (hyperlipidemia) Hyperthyroidism Hypothyroidism Irritable bowel Scarlet fever Home Medications alprazolam 1 mg tablet (Xanax) 1 mg PO BID 12/11/22 [History Last Taken Unknown] apixaban 5 mg tablet (Eliquis) 5 mg PO BID 12/11/22 [History Last Taken Unknown] bupropion HCl 150 mg 24 hr tablet, extended release 150 mg PO BID 12/11/22 [History Last Taken Unknown] dicyclomine 10 mg capsule 20 mg (2 x 10 mg) PO TIDAC #20 CAPSULES 12/11/22 [Rx Last Taken Unknown] docusate sodium 100 mg capsule 100 mg PO BID 12/11/22 [History Last Taken Unknown] esomeprazole magnesium 20 mg capsule,delayed release 20 mg PO DAILY 12/11/22 [History Last Taken Unknown] ezetimibe 10 mg tablet 10 mg PO DAILY 12/11/22 [History Last Taken Unknown] levothyroxine 50 mcg tablet 50 mcg PO DAILY 12/11/22 [History Last Taken Unknown] ondansetron HCl 4 mg tablet 4 mg PO Q6H PRN Nausea 12/11/22 [History Last Taken Unknown] zolpidem 10 mg tablet (Ambien) 10 mg PO QHS 12/11/22 [History Last Taken Unknown] Allergy/AdvReac Type Severity Reaction Status Date / Time cefdinir [From Omnicef] Allergy Hives Verified 12/11/22 22:27 codeine Allergy NEEDS Verified 12/11/22 22:27 FOLLOW-UP latex Allergy Anaphylaxis Verified 12/11/22 22:27 prochlorperazine Allergy NEEDS Verified 12/11/22 22:47 [From Compazine] FOLLOW-UP shellfish derived Allergy Anaphylaxis Verified 03/16/23 03:34 levofloxacin [From Levaquin] AdvReac Vomiting Verified 12/11/22 22:27 Tnbywbu-[id number]-SxK Reductase AdvReac NEEDS Verified 12/11/22 22:27 Inhibitor FOLLOW-UP Family History (Updated 03/16/23 @ 06:[address] Jessica Thomas MD) Mother Heart disease COPD (chronic obstructive pulmonary disease) Father Heart disease Hypertension CAD (coronary artery disease) Myocardial infarction Surgical History (Updated 03/16/23 @ 06:[address] Jessica Thomas MD) History of appendectomy History of cholecystectomy History of colon surgery History of total abdominal hysterectomy Social History (Updated 03/16/23 @ 06:[address] Jessica Thomas MD) household members: none Smoking Status: Never smoker alcohol intake: never substance use type: does not use ROS Gastrointestinal Gastrointestinal: Reports change in bowel habits and constipation Physical Exam Const alert and oriented x3 Constitutional Narrative: Patient appears mildly distressed and uncomfortable General Appearance: cooperative HEENT HEENT Narrative: Nasogastric tube placed via left nare Resp normal respiratory effort GI GI Narrative: Mildly distended, numerous scars across anterior abdominal wall including midline laparotomy and right paramedian incision (patient reports this was used for open cholecystectomy). No visible hernias. Patient is diffusely tender to palpation with voluntary guarding present. Nasogastric tube output is thin serous fluid. Lab / Micro Data 03/16/23 03:45 03/16/23 03:45 Labs: Laboratory Results - last 24 hr 03/16/23 03:45: WBC 8.4, RBC 3.96 L, Hgb 11.4 L, Hct 35.4 L, MCV 89.4, MCH 28.8, MCHC 32.2, RDW Std Deviation 49.0 H, RDW Coeff of Neno 14.7 H, Plt Count 361, MPV 10.0, Immature Gran % (Auto) 0.400, Neut % (Auto) 48.5, Lymph % (Auto) 40.6, [place] % (Auto) 8.3, Eos % (Auto) 1.1, Baso % (Auto) 1.1 H, Absolute Neuts (auto) 4.1, Absolute Lymphs (auto) 3.41, Nucleated RBC % 0, Sodium 139, Potassium 4.1, Chloride 109 H, Carbon Dioxide 23.0, Anion Gap 7, BUN 18, Creatinine 1.49 H, Estim Creat Clear Calc 26.13, Est GFR (MDRD) Af Amer 44 L, Est GFR (MDRD) Non-Af 37 L, BUN/Creatinine Ratio 12.1, Glucose 100, Calcium 9.0, Total Bilirubin 0.60, AST 18, ALT 18, Alkaline Phosphatase 105, Total Protein 7.5, Albumin 3.6, Globulin 3.9, Albumin/Globulin Ratio 0.9 03/16/23 05:13: Urine Color Yellow, Urine Clarity Clear, Urine pH 6.0, Ur Specific [place] 1.010, Urine Protein Negative, Urine Glucose (UA) Normal, Urine Ketones Negative, Urine Occult Blood Negative, Urine Nitrite Negative, Urine Bilirubin Negative, Urine Urobilinogen Normal, Ur Leukocyte Esterase 25 H, Urine RBC 0 SEEN, Urine WBC 0-5 SEEN, Ur Squamous Epith Cells 0 SEEN, Urine Bacteria 0 SEEN, Urine Mucus 0 SEEN Radiology Impression Abdomen/Pelvis CT 03/16/23 03:41 IMPRESSION: Mild focally dilated small bowel in the left lower abdomen near the surgical anastomosis, similar but increased compared to prior May BE related to postsurgical change. Focal ileus, enteritis, or partial low-grade small bowel obstruction not entirely excluded. Biliary dilatation is stable compared to prior study postcholecystectomy. Electronically Signed: Jessie Brasher MD at 5:35 EDT , KUB X-Ray 03/16/23 06:22 IMPRESSION: NG tube as described. Electronically Signed: Jessie Brasher MD at 7:06 EDT , Charges/Coding Visit Charges Inpatient E&M: 05741 Init Hosp L2
[2023-03-16 11:05] VITALS: BP 149/79; PULSE 62; RESP 16; TEMP 36.4; O2SAT 100
--- NOTE | 2023-03-16 14:20 | CASEMGMT ---
DAVID ANTHONY Assessment: Face to Face with pt for initial transition planning/care coordination assessment. RN GABRIELLE introduced self and role at [facility], pt voices understanding and consents to assessment. Pt is A/O x4 and answers all questions appropriately at this time. Pt lying in bed with NG in in no distress. Care providers, pharmacy, and demographics verified/updated. Admitting Dx: partial SBO PCP:Sergio Specialists:Pt denies Preferred Pharmacy:[facility] Insurance: [facility] Prescription Benefit: yes LNOK: Rosario Kennedy, dtr; Vicky Howe, niece Living Arrangements: Pt lives with dtr currently but dtr is moving to [place]. Pt reports being I in ADL's and denies concerns at home. Transportation: Pt drives self and denies concerns with transportation. DME/HHC/SNF: Pt has a cane that she sometimes uses and a rollator that is at her sister's. Pt has had HHC in the past but is unsure of the name of the agency. Pt has been to a SNF in [place]. Pt states no concerns with going home at time of dc. Pt states no further concerns/needs. CM to follow. Advised pt to ask CM if any further question/concerns/needs arise, voices understanding. Pt Goal: Home Plan: Home
[2023-03-16 14:34] VITALS: BP 133/75; PULSE 72; RESP 16; TEMP 36.6; O2SAT 100
--- NOTE | 2023-03-16 15:14 | CASEMGMT ---
Social work SW spoke with pt regarding advance directives. Pt denies having a HCPOA and cannot locate Living Will. SW offered to assist pt in completing documents but pt declines as she does not feel well enough. Rack Card with advance directive information provided to pt. MAKSIM Sebastian
[2023-03-16 20:35] VITALS: BP 144/67; PULSE 72; RESP 16; TEMP 36.6; O2SAT 98
[2023-03-17] MEDS: 0.9% Saline Lock 10 ML Syringe IV (01:58)
[2023-03-17] MEDS: LORazepam 2 MG/ML Syringe 0.5 MG IV ×3 (01:58→20:36)
[2023-03-17] MEDS: 0.9% Normal Saline 1,000 ML 100 ML IV ×3 (02:01→22:23)
[2023-03-17 02:25] VITALS: BP 156/86; PULSE 83; RESP 16; TEMP 36.6; O2SAT 100
[2023-03-17 03:46] VITALS: BMI 22.6
--- NOTE | 2023-03-17 05:15 | RAD_ITS ---
INDICATION: pSBO EXAMINATION/TECHNIQUE: X-RAY - XR Abdomen 1 View portable. 5:13 AM on 03/17/2023. COMPARISON: Abdomen x-ray 03/16/2023 at 3:04 PM. FINDINGS: Residual oral contrast throughout the colon, from the ascending to the rectum. No residual retained contrast in the small bowel. No dilated bowel. NG tube tip in the stomach. RAD/Abdomen Single View (Portable) IMPRESSION: No bowel obstruction. Contrast throughout the colon progressed compared to earlier. Electronically Signed: Jessie Brasher MD at 2:55 EDT ,
[2023-03-17] MEDS: Ondansetron 4 MG/2 ML Vial IV ×3 (05:32→20:37)
[2023-03-17] MEDS: Morphine 2 MG/ML Syringe IV ×2 (05:32→20:51)
--- NOTE | 2023-03-17 07:03 | PCM.PN.SRG ---
Subjective Subjective Patient reports she is doing much better today. She reports no abdominal pain. She had several bowel movements. She had no nausea. Objective Data Objective Data Vital Signs: Vital Signs Temp Pulse Resp BP Pulse Ox O2 Del Method 97.8 F 83 16 156/86 H 100 Room Air 03/17/23 02:25 03/17/23 02:25 03/17/23 02:25 03/17/23 02:25 03/17/23 02:25 03/17/23 02:25 Oxygen Delivery Method Room Air Weight: 119 lb 14.903 oz Body Mass Index (BMI) 22.6 Intake & Output: Intake and Output for Last 24 Hours 03/15/23 03/16/23 03/17/23 23:59 23:59 23:59 Intake Total 2358.33 / 2358.33 865 / 865 Output Total 450 / 450 150 / 150 Balance 1908.33 / 1908.33 715 / 715 Medical Nutrition Assessment Dietitian: Malnutrition Criteria Met Start: 03/16/23 15:24 Freq: Status: Active Protocol: Document 03/16/23 15:24 SLA (Rec: 03/16/23 15:24 SLA [id number]) Nutrition Malnutrition Evidence of Malnutrition Exists Yes Malnutrition (severe): Chronic Evidenced By Suboptimal Energy Intake ( Severe),Weight Loss (Severe) Intake Problem Inadequate Oral Intake Etiology related to GI dysfunction and NG in place for suction Signs/Symptoms as evidenced by NPO status Status Active Problem Clinical Problem Chronic Disease or Condition Related Malnutrition Etiology related to inadequate energy intake Signs/Symptoms as evidenced by <50% po intake x 1 year and unintended wt loss of 10.4% x 3 mo and 16.7% unintended wt loss x 1 year. Status Active Problem Recommendation Dietitian Recommendations/Changes Rec JAHAIRA to Transitional as medically able w/ goal of liberal regular d/t signs and symptoms of malnutrition Rec ensure milkshake w/ L&D as medically able for increased nutrition if consumed Res parenteral nutrition support if NPO expected > 3 days Lab / Micro Data 03/16/23 03:45 03/16/23 03:45 Radiography Diagnostic Testing: Radiology Impression KUB X-Ray 03/16/23 06:22 IMPRESSION: NG tube as described. Electronically Signed: Jessie Brasher MD at 7:06 EDT , Small Bowel X-Ray 03/16/23 08:50 IMPRESSION: 1. Successful Gastrografin challenge. No bowel obstruction. Documentation of contrast in the colon at 6 hours. Electronically Signed: Fox Han (Brooks), at 16:19 EDT , Physical Exam Const oriented x3 and no apparent distress GI normal to inspection, nondistended, normoactive bowel sounds Assessment & Plan Assessment/Plan (1) Partial small bowel obstruction: PLAN: Patient did have bowel movement. She is soft and nontender nondistended. I will remove the NG and start a diet as tolerated. If she tolerates diet she can go home later today. She may follow-up with Dr. Umanzor as needed. Marvin Edwards MD Pager: [facility] [address] [place] [address], [address] [place] [address] Office:
[2023-03-17 07:35] VITALS: O2SAT 94
[2023-03-17 07:48] LABS: Absolute Lymphocyte Count 1.57 X10^3/uL (0.83-4.51); Absolute Neutrophil Count 9.2 X10^3/uL (2.0-7.7); Basophil# 0.04 X10^3/uL; Basophil% 0.3 % (0-1); Eosinophil# 0.14 X10^3/uL; Eosinophils% 1.2 % (0-5); Hematocrit 31.7 % (37-47); Hemoglobin 10.2 g/dL (12.0-15.0); Lymphocyte # 1.57 X10^3/ul (0.83-4.51); Lymphocyte % 13.4 % (19-41); Mean Corp Hgb Conc 32.2 g/dL (32-36); Mean Corpuscular Hgb 29.5 pg (27.0-32.0); Mean Corpuscular Volume 91.6 fL (81-99); Mean Platelet Vol. 10.4 fl (6.2-12.0); Monocyte# 0.76 X10^3/uL; Monocyte% 6.5 % (0-10); NRBC Flagged by Analyzer 0 % (0-5); Neutrophil # 9.18 X10^3/uL (2.7-7.7); Neutrophil % 78.2 % (47-70); Platelet Count 293 K/mm3 (150-450); RBC Distribution Width CV 14.7 % (11.6-14.6); RBC Distribution Width SD 49.5 fl (35.1-43.9); Red Blood Count 3.46 M/mm3 (4.2-5.4); White Blood Count 11.7 K/mm3 (4.4-11.0)
[2023-03-17 08:03] LABS: ALB/GLOB Ratio 0.9 RATIO (0.9-2.4); AST(SGOT) 198 U/L (15-37); Alanine Aminotransfer ALT/SGPT 130 U/L (13-56); Alkaline Phosphatase 179 U/L (45-117); Anion Gap 7 (5-15); BUN 11 mg/dL (7-18); BUN/Creat Ratio 11.1 RATIO (10-20); Calcium,Total 8.4 mg/dL (8.5-10.1); Chloride 112 mmol/L (98-107); Creatinine, Serum 0.99 mg/dL (0.55-1.02); EST Glomerular Filtration Rate 59 mL/min (>60); Est Glom Filt Rate - Afr Amer 71 mL/min (>60); Estimated Creatinine Clearance 39.33 ml/min; Globulin 3.4 g/dL (2.2-4.2); Glucose 88 mg/dL (74-106); Potassium 4.1 mmol/L (3.5-5.1); Protein, Total 6.4 g/dL (6.4-8.2); Sodium Level 140 mmol/L (136-145)
[2023-03-17 09:09] VITALS: BP 158/61; PULSE 75; RESP 16; TEMP 36.7; O2SAT 100
[2023-03-17] MEDS: APIXABAN 5 MG TABLET PO ×2 (09:31→20:45)
[2023-03-17] MEDS: Docusate Sodium 100 MG Capsule PO (09:31)
--- NOTE | 2023-03-17 11:27 | DCINST_ITS ---
Discharge Instructions Diet Discharge Diet: Light diet - advance as tolerated Activity Discharge Activity: Return to Normal Activity Follow Up Care Test Results: Test results from this visit will be discussed in further detail at your follow- up appointment, if applicable. Discharge Plan Admission Admit Date/Time: 03/16/23 06:30 Primary Reason for Your Visit: Partial bowel obstruction Attending Provider: Ivon Oliver Primary Care Provider: Jaison Hill Consulting Providers: Jessica Thomas; Lobo Umanzor; Aly Fragoso Instructions Patient Instructions: Obstruction Intestinal Additional Instructions / Restrictions: DISCHARGE INSTRUCTIONS PLEASE READ *Please take this with you to your next doctors appointment* -Please resume your home medications -Follow up with Dr. Umanzor with general surgery as needed -Would recommend lab work (CMP) to check your liver function in 2 to 3 days through your primary care physician's office. Please call their office upon discharge to obtain order for lab work. -Please call your primary care provider's office upon discharge to schedule a hospital follow up within 1 week. -For any concerning signs or symptoms please call 911 or proceed to the nearest emergency department Discharge Orders/Prescriptions Prescriptions: Continued alprazolam [Xanax] 1 mg Tablet 1 mg PO BID ondansetron HCl 4 mg Tablet 4 mg PO Q6H PRN (Reason: Nausea) levothyroxine 50 mcg Tablet 50 mcg PO DAILY docusate sodium 100 mg capsule 100 mg PO BID Patient Comments: TAKE 1 CAPSULE BY MOUTH TWICE DAILY zolpidem [Ambien] 10 mg Tablet 10 mg PO QHS esomeprazole magnesium 20 mg capsule,delayed release(DR/EC) 20 mg PO DAILY ezetimibe 10 mg Tablet 10 mg PO DAILY bupropion HCl 150 mg tablet extended release 24 hr 150 mg PO BID Eliquis 5 mg Tablet 5 mg PO BID dicyclomine 10 mg capsule 20 mg PO TIDAC Qty: 20 0RF Referrals / Follow Up: Lobo Umanzor MD [Med Staff - Active Staff] - (Follow-up with surgery as needed) Jaison Hill MD [Primary Care Provider] - Within 1 Week Care Physician,No Primary [Non-Staff] - Disposition Disposition (needs filled in before D/C Order can be placed): Home, Self Care
--- NOTE | 2023-03-17 11:29 | DS.PCM_ITS ---
Providers Date of Admission: 03/16/23 Date of Discharge: 03/18/23 Primary Care Physician: Dr. Jaison Hill MD Consultations 03/16/23 07:37 Consult: General Surgery Routine Consulting Provider: Lobo Umanzor Reason for Consult: pSBO EMERGENT Consult: No MD Notified: Yes Date Notified: 03/16/23 Time Notified: 06:32 Method of Notification: ED Physician Initiated Reason For Visit: PARTIAL SBO Diagnosis Discharge Diagnosis (1) Partial small bowel obstruction: Status: Acute Code(s): K56.600 - Partial intestinal obstruction, unspecified as to cause Plan #recurrent n/v #Parital ABO #anx/depression #hypothyroidism #hx vte Medications at Discharge Home Medications alprazolam 1 mg tablet (Xanax) 1 mg PO BID 12/11/22 apixaban 5 mg tablet (Eliquis) 5 mg PO BID 12/11/22 bupropion HCl 150 mg 24 hr tablet, extended release 150 mg PO BID 12/11/22 esomeprazole magnesium 20 mg capsule,delayed release 20 mg PO DAILY 12/11/22 ezetimibe 10 mg tablet 10 mg PO DAILY 12/11/22 levothyroxine 50 mcg tablet 50 mcg PO DAILY 12/11/22 ondansetron HCl 4 mg tablet 4 mg PO Q6H PRN Nausea 12/11/22 zolpidem 10 mg tablet (Ambien) 10 mg PO QHS 12/11/22 Hospital Course Summary of Care Provided Minutes Spent on Discharge: 46 Hospital Course: 72 F hx of Hypothyroidism, Anxiety and Depression, Hx VTE, HLD, GERD, Hx SBO s/p 7 prior abdominal surgeries including small bowel resection who presents to the [facility] ED on 03/16/23 with history of onset abdominal pain 2 days prior in her LLQ w/ last BM staurday prior. CT abd/pel w/ midly focally dilated small bowel in the left lower abdomen near the surgical anastomosis similar but increased compared to prior, ED d/w gen surg who requested NG and small bowel follow through. Pt improved and NG tube was DC'd and diet advanced on 03/17. Initially patient did well and then she had resumption of abdominal pain and vomiting, made n.p.o. again and refused NG but given nausea resolved this is not necessary. Retrialed food on 03/18 and initially did well with the clear liquids however after routine abdominal exam she vomited multiple times again. Discussed with surgery given her multiple abdominal surgeries with short gut syndrome, weight loss, inability to tolerate 2 trials of advancing diet, multiple adhesions it was recommended she be transferred to higher level of care. This was discussed with patient and she was agreeable. Patient accepted to [facility] by Dr. Almanza. Physical Exam Narrative General: Alert, oriented, initially was in no apparent distress but after abdominal exam patient began acutely vomiting HEENT: Atraumatic, normocephalic Eyes: Anicteric, normal conjunctiva, extraocular movements grossly intact Neck: Supple Respiratory: Clear to auscultation bilaterally, normal respiratory effort Cardiovascular: Regular rate and rhythm GI: Soft, nondistended, initially had some slight tenderness but no rebound, guarding, rigidity however as soon as abdominal exam was over patient felt extremely nauseous and vomited multiple times Extremities: No edema Musculoskeletal: Moving all extremities Neuro: No overt focal neurological deficits Skin: No rashes appreciated Psych: Tearful and anxious Medical Records Data Medical Nutrition Assessment Dietitian: Malnutrition Criteria Met Start: 03/16/23 15:24 Freq: Status: Active Protocol: Document 03/16/23 15:24 SLA (Rec: 03/16/23 15:24 SLA [id number]) Nutrition Malnutrition Evidence of Malnutrition Exists Yes Malnutrition (severe): Chronic Evidenced By Suboptimal Energy Intake ( Severe),Weight Loss (Severe) Intake Problem Inadequate Oral Intake Etiology related to GI dysfunction and NG in place for suction Signs/Symptoms as evidenced by NPO status Status Active Problem Clinical Problem Chronic Disease or Condition Related Malnutrition Etiology related to inadequate energy intake Signs/Symptoms as evidenced by <50% po intake x 1 year and unintended wt loss of 10.4% x 3 mo and 16.7% unintended wt loss x 1 year. Status Active Problem Recommendation Dietitian Recommendations/Changes Rec JAHAIRA to Transitional as medically able w/ goal of liberal regular d/t signs and symptoms of malnutrition Rec ensure milkshake w/ L&D as medically able for increased nutrition if consumed Res parenteral nutrition support if NPO expected > 3 days Weight / BMI Weight Weight: 54.4 kg Body Mass Index (BMI) 22.6 ABG / Lab / Microbiology Data 03/18/23 05:21 03/18/23 05:21 Laboratory: Laboratory Results - last 24 hr 03/17/23 07:22: WBC 11.7 H, RBC 3.46 L, Hgb 10.2 L, Hct 31.7 L, MCV 91.6, MCH 29.5, MCHC 32.2, RDW Std Deviation 49.5 H, RDW Coeff of Neno 14.7 H, Plt Count 293, MPV 10.4, Immature Gran % (Auto) 0.400, Neut % (Auto) 78.2 H, Lymph % (Auto) 13.4 L, [place] % (Auto) 6.5, Eos % (Auto) 1.2, Baso % (Auto) 0.3, Absolute Neuts (auto) 9.2 H, Absolute Lymphs (auto) 1.57, Nucleated RBC % 0, Sodium 140, Potassium 4.1, Chloride 112 H, Carbon Dioxide 21.0, Anion Gap 7, BUN 11, Creatinine 0.99, Estim Creat Clear Calc 39.33, Est GFR (MDRD) Af Amer 71, Est GFR (MDRD) Non-Af 59 L, BUN/Creatinine Ratio 11.1, Glucose 88, Calcium 8.4 L, Total Bilirubin 1.00, AST 198 H, ALT 130 H, Alkaline Phosphatase 179 H, Total Protein 6.4, Albumin 3.0 L, Globulin 3.4, Albumin/Globulin Ratio 0.9 Radiography Diagnostic Testing: Radiology Impression Small Bowel X-Ray 03/16/23 08:50 IMPRESSION: 1. Successful Gastrografin challenge. No bowel obstruction. Documentation of contrast in the colon at 6 hours. Electronically Signed: Fox GwendolynsLuis Eduardo Han, at 16:19 EDT Reading Location ID and State: [address] [place] [address] , Service support , D/C Instructions Discharge Diet: Light diet - advance as tolerated Meaningful Use Info Meaningful Use Diagnoses (Choose all that apply): None applicable Discharge Plan Admission Admit Date/Time: 03/16/23 06:30 Primary Reason for Your Visit: Partial bowel obstruction Attending Provider: Ivon Oliver Primary Care Provider: Jaison Hill Consulting Providers: Jessica Thomas; Lobo Umanzor; Aly Fragoso Instructions Patient Instructions: Obstruction Intestinal Discharge Orders/Prescriptions Prescriptions: Continued ondansetron HCl 4 mg Tablet 4 mg PO Q6H PRN (Reason: Nausea) levothyroxine 50 mcg Tablet 50 mcg PO DAILY esomeprazole magnesium 20 mg capsule,delayed release(DR/EC) 20 mg PO DAILY ezetimibe 10 mg Tablet 10 mg PO DAILY bupropion HCl 150 mg tablet extended release 24 hr 150 mg PO BID Eliquis 5 mg Tablet 5 mg PO BID Held alprazolam [Xanax] 1 mg Tablet 1 mg PO BID Hold Instructions: Resume on 03/21/23. zolpidem [Ambien] 10 mg Tablet 10 mg PO QHS Hold Instructions: Resume on 03/21/23. Discontinued docusate sodium 100 mg capsule 100 mg PO BID Patient Comments: TAKE 1 CAPSULE BY MOUTH TWICE DAILY dicyclomine 10 mg capsule 20 mg PO TIDAC Qty: 20 0RF Referrals / Follow Up: Lobo Umanzor MD [Med Staff - Active Staff] - (Follow-up with surgery as needed) Jaison Hill MD [Primary Care Provider] - Within 1 Week Care Physician,No Primary [Non-Staff] - Disposition Disposition (needs filled in before D/C Order can be placed): Home, Self Care Charges/Coding Visit Charges Inpatient E&M: 10648 Disch Hosp >30min
--- NOTE | 2023-03-17 12:52 | PCM.PN.HOSP ---
Reason for Visit Reason for Visit: Diagnoses Partial intestinal obstruction, unspecified as to cause (03/16/23) Constipation, unspecified (03/16/23) Subjective Subjective This a.m. patient feeling well and was having no more significant abdominal pain or nausea, not was tolerating clear liquids on my evaluation. Plan was for DC home after lunch however towards the afternoon patient did develop nausea and an episode of vomiting x1. Reports after that nausea was improving but is still present. Says she has some abdominal pain but not nearly as bad as it was yesterday. Patient also reports being anxious and she is tearful. Did report she was still able to pass gas around the same time that she vomited Objective Data Objective Data Vital Signs: Vital Signs Temp Pulse Resp BP Pulse Ox O2 Del Method 98.1 F 75 16 158/61 H 100 Room Air 03/17/23 09:09 03/17/23 09:09 03/17/23 09:09 03/17/23 09:09 03/17/23 09:09 03/17/23 09:12 Oxygen Delivery Method Room Air Weight: 54.4 kg Body Mass Index (BMI) 22.6 Intake & Output: Intake and Output for Last 24 Hours 03/15/23 03/16/23 03/17/23 23:59 23:59 23:59 Intake Total 2358.33 / 2358.33 980 / 980 Output Total 450 / 450 150 / 150 Balance 1908.33 / 1908.33 830 / 830 Medical Nutrition Assessment Dietitian: Malnutrition Criteria Met Start: 03/16/23 15:24 Freq: Status: Active Protocol: Document 03/16/23 15:24 SHANNON (Rec: 03/16/23 15:24 SHANNON [id number]) Nutrition Malnutrition Evidence of Malnutrition Exists Yes Malnutrition (severe): Chronic Evidenced By Suboptimal Energy Intake ( Severe),Weight Loss (Severe) Intake Problem Inadequate Oral Intake Etiology related to GI dysfunction and NG in place for suction Signs/Symptoms as evidenced by NPO status Status Active Problem Clinical Problem Chronic Disease or Condition Related Malnutrition Etiology related to inadequate energy intake Signs/Symptoms as evidenced by <50% po intake x 1 year and unintended wt loss of 10.4% x 3 mo and 16.7% unintended wt loss x 1 year. Status Active Problem Recommendation Dietitian Recommendations/Changes Rec JAHAIRA to Transitional as medically able w/ goal of liberal regular d/t signs and symptoms of malnutrition Rec ensure milkshake w/ L&D as medically able for increased nutrition if consumed Res parenteral nutrition support if NPO expected > 3 days Lab / Micro Data 03/17/23 07:22 03/17/23 07:22 Labs: Laboratory Results - last 24 hr 03/17/23 07:22: WBC 11.7 H, RBC 3.46 L, Hgb 10.2 L, Hct 31.7 L, MCV 91.6, MCH 29.5, MCHC 32.2, RDW Std Deviation 49.5 H, RDW Coeff of Neno 14.7 H, Plt Count 293, MPV 10.4, Immature Gran % (Auto) 0.400, Neut % (Auto) 78.2 H, Lymph % (Auto) 13.4 L, [place] % (Auto) 6.5, Eos % (Auto) 1.2, Baso % (Auto) 0.3, Absolute Neuts (auto) 9.2 H, Absolute Lymphs (auto) 1.57, Nucleated RBC % 0, Sodium 140, Potassium 4.1, Chloride 112 H, Carbon Dioxide 21.0, Anion Gap 7, BUN 11, Creatinine 0.99, Estim Creat Clear Calc 39.33, Est GFR (MDRD) Af Amer 71, Est GFR (MDRD) Non-Af 59 L, BUN/Creatinine Ratio 11.1, Glucose 88, Calcium 8.4 L, Total Bilirubin 1.00, AST 198 H, ALT 130 H, Alkaline Phosphatase 179 H, Total Protein 6.4, Albumin 3.0 L, Globulin 3.4, Albumin/Globulin Ratio 0.9 Radiography Diagnostic Testing: Radiology Impression Small Bowel X-Ray 03/16/23 08:50 IMPRESSION: 1. Successful Gastrografin challenge. No bowel obstruction. Documentation of contrast in the colon at 6 hours. Electronically Signed: Fox Han (Brooks), at 16:19 EDT , Physical Exam Narrative General: Alert, oriented, initially was in no apparent distress but on reevaluation appeared anxious HEENT: Atraumatic, normocephalic Eyes: Anicteric, normal conjunctiva, extraocular movements grossly intact Neck: Supple Respiratory: Clear to auscultation bilaterally, normal respiratory effort Cardiovascular: Regular rate and rhythm GI: Soft, nondistended, initial exam no tenderness, repeat exam had some voluntary guarding but when auscultating with stethoscope did not appear to have any significant tenderness and no rebound, guarding, rigidity Extremities: No edema Musculoskeletal: Moving all extremities Neuro: No overt focal neurological deficits Skin: No rashes appreciated Psych: Tearful and anxious Assessment & Plan Assessment/Plan (1) Partial small bowel obstruction: PLAN: Plan #Partial small bowel obstruction with nausea and abdominal pain -CT abdomen pelvis on admission with mildly focally dilated small bowel in the left lower abdomen near the surgical anastomosis similar but increased compared to prior possibly related to postsurgical change however focal ileus, enteritis or partial low-grade small bowel obstruction cannot be entirely excluded, biliary dilatation is stable compared to prior study postcholecystectomy -Patient had been admitted and had NG tube to suction and IV fluid with pain control and nausea control -Was feeling much better in the a.m. and had NG tube out and was thus far tolerating clears with no abdominal pain and KUB appeared to be improving -Patient was okay for DC home later in the day if tolerating diet- -given patient having episode of vomiting with increased nausea patient made n.p.o. again, no intractable abdominal pain and nausea was improving patient adamant that she does not want NG tube if at all possible so we will hold off on NG tube at this time. Discussed plan with surgery. If patient were to develop any problems requiring surgery she would need to be transferred -Did have slight bump in liver enzymes overnight with unclear significance as this did not wear her pain and symptoms, will trend daily CMP #Anxiety and depression: -will have as needed low-dose Ativan for anxiety and hold her Xanax regimen. 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 #7. DVT prophylaxis: Eliquis Time spent in the patient's overall evaluation,decision-making process, review of diagnostic data, adjustment of management, discussion with other providers, nursing nursing and ancillary staff involved in patient's care documentation, 40 minutes Charges/Coding Visit Charges Inpatient E&M: 79526 Subs Hosp L3
[2023-03-17 16:01] VITALS: BP 144/70; PULSE 79; RESP 16; TEMP 36.8; O2SAT 99
[2023-03-17 20:35] VITALS: BP 154/70; PULSE 75; RESP 16; TEMP 37.1; O2SAT 97
[2023-03-17] MEDS: MELATONIN 10 MG TABLET PO (20:44)
[2023-03-18] MEDS: LORazepam 2 MG/ML Syringe 0.5 MG IV ×3 (01:54→15:28)
[2023-03-18 02:30] VITALS: BP 130/70; PULSE 69; RESP 16; TEMP 37; O2SAT 99
[2023-03-18] MEDS: Ondansetron 4 MG/2 ML Vial IV ×2 (05:05→11:37)
[2023-03-18] MEDS: Morphine 2 MG/ML Syringe IV (05:06)
[2023-03-18] MEDS: Levothyroxine 50 MCG Tablet PO (05:06)
[2023-03-18 06:00] VITALS: BMI 22.5
[2023-03-18 07:05] LABS: Absolute Lymphocyte Count 2.21 X10^3/uL (0.83-4.51); Absolute Neutrophil Count 4.4 X10^3/uL (2.0-7.7); Basophil# 0.05 X10^3/uL; Basophil% 0.7 % (0-1); Eosinophil# 0.14 X10^3/uL; Eosinophils% 1.9 % (0-5); Hemoglobin 9.1 g/dL (12.0-15.0); Lymphocyte # 2.21 X10^3/ul (0.83-4.51); Lymphocyte % 29.6 % (19-41); Mean Corp Hgb Conc 31.4 g/dL (32-36); Mean Corpuscular Hgb 28.9 pg (27.0-32.0); Mean Corpuscular Volume 92.1 fL (81-99); Monocyte# 0.61 X10^3/uL; Monocyte% 8.2 % (0-10); NRBC Flagged by Analyzer 0 % (0-5); Neutrophil # 4.43 X10^3/uL (2.7-7.7); Neutrophil % 59.2 % (47-70); Platelet Count 281 K/mm3 (150-450); RBC Distribution Width CV 14.3 % (11.6-14.6); RBC Distribution Width SD 48.2 fl (35.1-43.9); Red Blood Count 3.15 M/mm3 (4.2-5.4); White Blood Count 7.5 K/mm3 (4.4-11.0)
[2023-03-18 07:33] LABS: ALB/GLOB Ratio 0.8 RATIO (0.9-2.4); AST(SGOT) 81 U/L (15-37); Alanine Aminotransfer ALT/SGPT 101 U/L (13-56); Albumin, Serum 2.7 g/dL (3.2-5.0); Alkaline Phosphatase 158 U/L (45-117); Anion Gap 6 (5-15); BUN 7 mg/dL (7-18); Calcium,Total 8.4 mg/dL (8.5-10.1); Chloride 111 mmol/L (98-107); Creatinine, Serum 0.88 mg/dL (0.55-1.02); EST Glomerular Filtration Rate 68 mL/min (>60); Est Glom Filt Rate - Afr Amer 82 mL/min (>60); Estimated Creatinine Clearance 44.25 ml/min; Globulin 3.4 g/dL (2.2-4.2); Glucose 84 mg/dL (74-106); Potassium 3.6 mmol/L (3.5-5.1); Protein, Total 6.1 g/dL (6.4-8.2); Sodium Level 138 mmol/L (136-145)
[2023-03-18 07:43] VITALS: O2SAT 94
[2023-03-18 07:58] VITALS: BP 143/76; PULSE 71; RESP 16; TEMP 36.5; O2SAT 99
--- NOTE | 2023-03-18 08:01 | PCM.PN.SRG ---
Subjective Subjective Patient told me she was feeling better this morning but she told the nurse that she was still nauseous and received Zofran this morning. Objective Data Objective Data Vital Signs: Vital Signs Temp Pulse Resp BP Pulse Ox O2 Del Method 97.7 F L 71 16 143/76 H 99 Room Air 03/18/23 07:58 03/18/23 07:58 03/18/23 07:58 03/18/23 07:58 03/18/23 07:58 03/18/23 07:58 Oxygen Delivery Method Room Air Weight: 119 lb 7.849 oz Body Mass Index (BMI) 22.5 Intake & Output: Intake and Output for Last 24 Hours 03/16/23 03/17/23 03/18/23 23:59 23:59 23:59 Intake Total 2358.33 / 2358.33 2263.33 / 2263.33 110 / 110 Output Total 450 / 450 450 / 450 Balance 1908.33 / 1908.33 1813.33 / 1813.33 110 / 110 Medical Nutrition Assessment Dietitian: Malnutrition Criteria Met Start: 03/16/23 15:24 Freq: Status: Active Protocol: Document 03/16/23 15:24 SLA (Rec: 03/16/23 15:24 SLA [id number]) Nutrition Malnutrition Evidence of Malnutrition Exists Yes Malnutrition (severe): Chronic Evidenced By Suboptimal Energy Intake ( Severe),Weight Loss (Severe) Intake Problem Inadequate Oral Intake Etiology related to GI dysfunction and NG in place for suction Signs/Symptoms as evidenced by NPO status Status Active Problem Clinical Problem Chronic Disease or Condition Related Malnutrition Etiology related to inadequate energy intake Signs/Symptoms as evidenced by <50% po intake x 1 year and unintended wt loss of 10.4% x 3 mo and 16.7% unintended wt loss x 1 year. Status Active Problem Recommendation Dietitian Recommendations/Changes Rec JAHARIA to Transitional as medically able w/ goal of liberal regular d/t signs and symptoms of malnutrition Rec ensure milkshake w/ L&D as medically able for increased nutrition if consumed Res parenteral nutrition support if NPO expected > 3 days Lab / Micro Data 03/18/23 05:21 03/18/23 05:21 Labs: Laboratory Results - last 24 hr 03/17/23 07:22: Sodium 140, Potassium 4.1, Chloride 112 H, Carbon Dioxide 21.0, Anion Gap 7, BUN 11, Creatinine 0.99, Estim Creat Clear Calc 39.33, Est GFR (MDRD) Af Amer 71, Est GFR (MDRD) Non-Af 59 L, BUN/Creatinine Ratio 11.1, Glucose 88, Calcium 8.4 L, Total Bilirubin 1.00, AST 198 H, ALT 130 H, Alkaline Phosphatase 179 H, Total Protein 6.4, Albumin 3.0 L, Globulin 3.4, Albumin/Globulin Ratio 0.9 03/18/23 05:21: WBC 7.5, RBC 3.15 L, Hgb 9.1 L, Hct 29.0 L, MCV 92.1, MCH 28.9, MCHC 31.4 L, RDW Std Deviation 48.2 H, RDW Coeff of Neno 14.3, Plt Count 281, MPV 11.0, Immature Gran % (Auto) 0.400, Neut % (Auto) 59.2, Lymph % (Auto) 29.6, [place] % (Auto) 8.2, Eos % (Auto) 1.9, Baso % (Auto) 0.7, Absolute Neuts (auto) 4.4, Absolute Lymphs (auto) 2.21, Nucleated RBC % 0, Sodium 138, Potassium 3.6, Chloride 111 H, Carbon Dioxide 21.0, Anion Gap 6, BUN 7, Creatinine 0.88, Estim Creat Clear Calc 44.25, Est GFR (MDRD) Af Amer 82, Est GFR (MDRD) Non-Af 68, BUN/Creatinine Ratio 8.0 L, Glucose 84, Calcium 8.4 L, Total Bilirubin 1.00, AST 81 H, ALT 101 H, Alkaline Phosphatase 158 H, Total Protein 6.1 L, Albumin 2.7 L, Globulin 3.4, Albumin/Globulin Ratio 0.8 L Radiography Diagnostic Testing: Radiology Impression KUB X-Ray 03/17/23 05:15 IMPRESSION: No bowel obstruction. Contrast throughout the colon progressed compared to earlier. Electronically Signed: Jessie Brasher MD at 2:55 EDT , Physical Exam Const oriented x3 Resp normal respiratory effort GI soft to palpation Inspection: Negative for abdominal distention Assessment & Plan Assessment/Plan (1) Partial small bowel obstruction: PLAN: Patient x-ray from yesterday showed that the contrast moved into the colon. She did have bowel movement. She was not able to tolerate clears yesterday and had nausea. It was uncertain if this was due to anxiety as well. I would like her to try clears again today. If she does not tolerate that she would need to be transferred to tertiary center as she already has short gut and known dense adhesions and she has had 7 abdominal surgeries. Marvin Edwards MD Pager: [facility] [address] [place] [address], [address] [place] [address] Office:
[2023-03-18] MEDS: 0.9% Normal Saline 1,000 ML 100 ML IV (09:26)
[2023-03-18] MEDS: APIXABAN 5 MG TABLET PO (10:30)
[2023-03-18] MEDS: Ezetimibe 10 MG Tablet PO (10:31)
[2023-03-18] MEDS: buPROPion (XL) 150 MG TABLET.XL PO (10:31)
--- NOTE | 2023-03-18 11:52 | CASEMGMT ---
In-network tertiary care facilities: [facility], [facility], , [facility], [facility], [facility], [facility]. Roshni Jean RN CM
--- NOTE | 2023-03-18 14:55 | PN.HOSP_ITS ---
Reason for Visit Reason for Visit: Diagnoses Partial intestinal obstruction, unspecified as to cause (03/16/23) Constipation, unspecified (03/16/23) Subjective Subjective Patient had initially been feeling better this morning and was tolerating clear liquids however right after abdominal exam had multiple episodes of nausea and active vomiting. Objective Data Objective Data Vital Signs: Vital Signs Temp Pulse Resp BP Pulse Ox O2 Del Method 97.7 F L 71 16 143/76 H 99 Room Air 03/18/23 07:58 03/18/23 07:58 03/18/23 07:58 03/18/23 07:58 03/18/23 07:58 03/18/23 08:00 Oxygen Delivery Method Room Air Weight: 54.2 kg Body Mass Index (BMI) 22.5 Intake & Output: Intake and Output for Last 24 Hours 03/16/23 03/17/23 03/18/23 23:59 23:59 23:59 Intake Total 2358.33 / 2358.33 2263.33 / 2263.33 1110 / 1110 Output Total 450 / 450 450 / 450 Balance 1908.33 / 1908.33 1813.33 / 1813.33 1110 / 1110 Medical Nutrition Assessment Dietitian: Malnutrition Criteria Met Start: 03/16/23 15:24 Freq: Status: Active Protocol: Document 03/16/23 15:24 SHANNON (Rec: 03/16/23 15:24 SHANNON [id number]) Nutrition Malnutrition Evidence of Malnutrition Exists Yes Malnutrition (severe): Chronic Evidenced By Suboptimal Energy Intake ( Severe),Weight Loss (Severe) Intake Problem Inadequate Oral Intake Etiology related to GI dysfunction and NG in place for suction Signs/Symptoms as evidenced by NPO status Status Active Problem Clinical Problem Chronic Disease or Condition Related Malnutrition Etiology related to inadequate energy intake Signs/Symptoms as evidenced by <50% po intake x 1 year and unintended wt loss of 10.4% x 3 mo and 16.7% unintended wt loss x 1 year. Status Active Problem Recommendation Dietitian Recommendations/Changes Rec JAHAIRA to Transitional as medically able w/ goal of liberal regular d/t signs and symptoms of malnutrition Rec ensure milkshake w/ L&D as medically able for increased nutrition if consumed Res parenteral nutrition support if NPO expected > 3 days Lab / Micro Data 03/18/23 05:21 03/18/23 05:21 Labs: Laboratory Results - last 24 hr 03/18/23 05:21: WBC 7.5, RBC 3.15 L, Hgb 9.1 L, Hct 29.0 L, MCV 92.1, MCH 28.9, MCHC 31.4 L, RDW Std Deviation 48.2 H, RDW Coeff of Neno 14.3, Plt Count 281, MPV 11.0, Immature Gran % (Auto) 0.400, Neut % (Auto) 59.2, Lymph % (Auto) 29.6, [place] % (Auto) 8.2, Eos % (Auto) 1.9, Baso % (Auto) 0.7, Absolute Neuts (auto) 4.4, Absolute Lymphs (auto) 2.21, Nucleated RBC % 0, Sodium 138, Potassium 3.6, Chloride 111 H, Carbon Dioxide 21.0, Anion Gap 6, BUN 7, Creatinine 0.88, Estim Creat Clear Calc 44.25, Est GFR (MDRD) Af Amer 82, Est GFR (MDRD) Non-Af 68, BUN/Creatinine Ratio 8.0 L, Glucose 84, Calcium 8.4 L, Total Bilirubin 1.00, AST 81 H, ALT 101 H, Alkaline Phosphatase 158 H, Total Protein 6.1 L, Albumin 2.7 L, Globulin 3.4, Albumin/Globulin Ratio 0.8 L Radiography Diagnostic Testing: Radiology Impression KUB X-Ray 03/17/23 05:15 IMPRESSION: No bowel obstruction. Contrast throughout the colon progressed compared to earlier. Electronically Signed: Jessie Brasher MD at 2:55 EDT , Physical Exam Narrative General: Alert, oriented, initially was in no apparent distress but after abdominal exam patient began acutely vomiting HEENT: Atraumatic, normocephalic Eyes: Anicteric, normal conjunctiva, extraocular movements grossly intact Neck: Supple Respiratory: Clear to auscultation bilaterally, normal respiratory effort Cardiovascular: Regular rate and rhythm GI: Soft, nondistended, initially had some slight tenderness but no rebound, guarding, rigidity however as soon as abdominal exam was over patient felt extre ajay nauseous and vomited multiple times Extremities: No edema Musculoskeletal: Moving all extremities Neuro: No overt focal neurological deficits Skin: No rashes appreciated Psych: Tearful and anxious Assessment & Plan Assessment/Plan (1) Partial small bowel obstruction: PLAN: Plan #Partial small bowel obstruction with nausea and abdominal pain -CT abdomen pelvis on admission with mildly focally dilated small bowel in the left lower abdomen near the surgical anastomosis similar but increased compared to prior possibly related to postsurgical change however focal ileus, enteritis or partial low-grade small bowel obstruction cannot be entirely excluded, biliary dilatation is stable compared to prior study postcholecystectomy -Patient had been admitted and had NG tube to suction and IV fluid with pain control and nausea control -Was feeling much better in the a.m. and had NG tube out and was thus far tolerating clears with no abdominal pain and KUB appeared to be improving -Patient was okay for DC home later in the day if tolerating diet- -given patient having episode of vomiting with increased nausea patient made n.p.o. again, no intractable abdominal pain and nausea was improving patient adamant that she does not want NG tube if at all possible so we will hold off on NG tube at this time. Discussed plan with surgery. If patient were to develop any problems requiring surgery she would need to be transferred -Did have slight bump in liver enzymes overnight with unclear significance as this did not wear her pain and symptoms, will trend daily CMP -7/2: Patient with recurrent nausea and vomiting. Has been having small stools and intermittently tolerating diet however given multiple back slides and extensive abdominal history it was discussed with Dr. Edwards it was recommended she be transferred to tertiary facility. She has been accepted at [facility] by Dr. Almanza and is awaiting bed #Anxiety and depression: -will have as needed low-dose Ativan for anxiety and hold her Xanax regimen. 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 #7. DVT prophylaxis: Eliquis Time spent in the patient's overall evaluation,decision-making process, review of diagnostic data, adjustment of management, discussion with other providers, nursing nursing and ancillary staff involved in patient's care documentation, 40 minutes Charges/Coding Visit Charges Inpatient E&M: 61946 Subs Hosp L3
[2023-03-18 15:15] VITALS: BP 168/88; PULSE 78; RESP 18; TEMP 36.7; O2SAT 100
--- NOTE | 2023-03-18 16:18 | DCINST_ITS ---
Discharge Instructions Diet Discharge Diet: Light diet - advance as tolerated Follow Up Care Test Results: Test results from this visit will be discussed in further detail at your follow- up appointment, if applicable. Discharge Plan Admission Admit Date/Time: 03/16/23 06:30 Primary Reason for Your Visit: Partial bowel obstruction Attending Provider: Ivon Oliver Primary Care Provider: Jaison Hill Consulting Providers: Jessica Thomas; Lobo Umanzor; Aly Fragoso Instructions Patient Instructions: Obstruction Intestinal Discharge Orders/Prescriptions Prescriptions: Continued alprazolam [Xanax] 1 mg Tablet 1 mg PO BID ondansetron HCl 4 mg Tablet 4 mg PO Q6H PRN (Reason: Nausea) levothyroxine 50 mcg Tablet 50 mcg PO DAILY docusate sodium 100 mg capsule 100 mg PO BID Patient Comments: TAKE 1 CAPSULE BY MOUTH TWICE DAILY zolpidem [Ambien] 10 mg Tablet 10 mg PO QHS esomeprazole magnesium 20 mg capsule,delayed release(DR/EC) 20 mg PO DAILY ezetimibe 10 mg Tablet 10 mg PO DAILY bupropion HCl 150 mg tablet extended release 24 hr 150 mg PO BID Eliquis 5 mg Tablet 5 mg PO BID dicyclomine 10 mg capsule 20 mg PO TIDAC Qty: 20 0RF Referrals / Follow Up: Lobo Umanzor MD [Med Staff - Active Staff] - (Follow-up with surgery as needed) Jaison Hill MD [Primary Care Provider] - Within 1 Week Care Physician,No Primary [Non-Staff] - Disposition Disposition (needs filled in before D/C Order can be placed): Home, Self Care
--- NOTE | 2023-03-18 16:23 | NURSING ---
REPORT CALLED [facility] AND SPOKE WITH ADRIEN KWAN RN
== END 2023-03-18 17:00 | disposition short-term general hospital (02) | DRG 389 ==
LOC: ED 06:01 → MS3 06:32
PROVIDERS: Admitting Provider Family Medicine; Emergency Provider Emergency Medicine; Visit Provider Internal Medicine
DX: K56.600 Partial intestinal obstruction, unspecified as to cause (principal); K91.2 Postsurgical malabsorption, not elsewhere classified; N18.30 Chronic kidney disease, stage 3 unspecified; K56.7 Ileus, unspecified; D64.9 Anemia, unspecified; F41.9 Anxiety disorder, unspecified; K52.9 Noninfective gastroenteritis and colitis, unspecified; K21.9 Gastro-esophageal reflux disease without esophagitis; E03.9 Hypothyroidism, unspecified; E78.5 Hyperlipidemia, unspecified; F32.A Depression, unspecified; Z82.5 Family history of asthma and other chronic lower respiratory diseases
CPT/HCPCS: 36415; 74018; 74177; 74250; 80053; 81001; 85025; 94668; 97802; 99284; J7030; J7040; Q9967; A4216; J2405

== ENCOUNTER 2023-03-31 22:21 | Emergency (ER) | payer MEDICARE, SELFPAY ==
[2023-03-31 22:22] VITALS: BP 131/114; PULSE 121; RESP 28; TEMP 35.9; O2SAT 100
--- NOTE | 2023-03-31 22:26 | EDS_ITS ---
HPI History of Present Illness Chief Complaint: Abd Pain [facility] Medical History (Updated 04/01/23 @ 04:[address] Matt Dominguez DO) Anxiety and depression Chronic anemia CKD (chronic kidney disease), stage III Depression DVT (deep venous thrombosis) GERD (gastroesophageal reflux disease) History of small bowel obstruction History of venous thromboembolism HLD (hyperlipidemia) Hyperthyroidism Hypothyroidism Irritable bowel Scarlet fever Home Medications alprazolam 1 mg tablet (Xanax) 1 mg PO BID 12/11/22 [History Last Taken Unknown] apixaban 5 mg tablet (Eliquis) 5 mg PO BID 12/11/22 [History Last Taken Unknown] bupropion HCl 150 mg 24 hr tablet, extended release 150 mg PO BID 12/11/22 [History Last Taken Unknown] esomeprazole magnesium 20 mg capsule,delayed release 20 mg PO DAILY 12/11/22 [History Last Taken Unknown] ezetimibe 10 mg tablet 10 mg PO DAILY 12/11/22 [History Last Taken Unknown] levothyroxine 50 mcg tablet 50 mcg PO DAILY 12/11/22 [History Last Taken Unknown] ondansetron HCl 4 mg tablet 4 mg PO Q6H PRN Nausea 12/11/22 [History Last Taken Unknown] zolpidem 10 mg tablet (Ambien) 10 mg PO QHS 12/11/22 [History Last Taken Unknown] dicyclomine 10 mg capsule mg 03/31/23 [History Last Taken Unknown] docusate sodium 100 mg capsule mg PO 03/31/23 [History Last Taken Unknown] Allergy/AdvReac Type Severity Reaction Status Date / Time cefdinir [From Omnicef] Allergy Hives Verified 03/31/23 22:24 codeine Allergy NEEDS Verified 03/31/23 22:24 FOLLOW-UP latex Allergy Anaphylaxis Verified 03/31/23 22:24 prochlorperazine Allergy NEEDS Verified 03/31/23 22:24 [From Compazine] FOLLOW-UP shellfish derived Allergy Anaphylaxis Verified 03/31/23 22:24 levofloxacin [From Levaquin] AdvReac Vomiting Verified 03/31/23 22:24 Ocayxlb-DXR-AeH Reductase AdvReac NEEDS Verified 03/31/23 22:24 Inhibitor FOLLOW-UP Family History (Updated 03/16/23 @ 06:[address] Jessica Thomas MD) Mother Heart disease COPD (chronic obstructive pulmonary disease) Father Heart disease Hypertension CAD (coronary artery disease) Myocardial infarction Surgical History History of appendectomy History of cholecystectomy History of colon surgery History of total abdominal hysterectomy Social History (Updated 03/16/23 @ 06:[address] Jessica Thomas MD) household members: none Smoking Status: Never smoker alcohol intake: never substance use type: does not use EXAM Physical Exam Const Vital Signs: 03/31/23 22:22 03/31/23 23:14 04/01/23 00:12 Temperature 96.6 F L Temperature Source Temporal Pulse Rate 121 H 83 79 Respiratory Rate 28 H 22 H 22 H Blood Pressure 131/114 H 125/88 H 151/86 H Blood Pressure Mean 119 100 107 Pulse Ox 100 98 100 Oxygen Delivery Method Room Air Room Air 04/01/23 01:27 04/01/23 02:07 04/01/23 03:00 Temperature Temperature Source Pulse Rate 80 77 72 Respiratory Rate 22 H 22 H 20 H Blood Pressure 166/71 H 154/81 H 161/88 H Blood Pressure Mean 102 105 112 Pulse Ox 100 96 100 Oxygen Delivery Method Room Air Room Air Room Air MDM MDM MDM Narrative Medical decision making narrative: HISTORY OF PRESENT ILLNESS: 72-year-old female here with abdominal pain. She states she is got severe abdominal pain. Intractable nausea vomiting. Decreased bowel movements. No fever. No chest pain or shortness of breath endorsed. REVIEW OF SYSTEMS: Pertinent positives: Abdominal pain, nausea vomiting Pertinent negatives: Hematemesis, melena or hematochezia PHYSICAL EXAM: Nursing triage notes reviewed, Vital signs reviewed Constitutional: please see mdm HENT: MMM Eyes: Pupils equal round and reactive to light, Extraocular muscles intact Neck: No stridor, no JVD, full neck ROM Lungs: Clear to auscultation, No wheezing or rales. No increased work of breathing, no conversational dyspnea, no accessory muscle use, no nasal flaring. No respiratory distress noted Heart: Regular rate and rhythm, No murmurs, No rubs and No gallops, 2+ distal pulses (radial, femoral, posterior tibial) in all extremities Abdomen: Soft, there is no tenderness, rigidity, rebound or guarding, no obvious peritoneal signs, no palpable pulsatile abdominal masses, no auscultated abdominal bruit : No CVAT Extremities: No edema Neuro: No focal neurological deficits, cranial nerves II through XII intact, 5/5 strength in all extremities. Intact sensation to light touch in all extremities, 2+ reflexes bilateral patella tendons. Normal gait. No ataxia. Skin: No rash or lesions noted MEDICAL DECISION MAKING: Chief Complaint: Abdominal pain External records reviewed: CT scan from 03/16/2023 shows Mild focally dilated small bowel in the left lower abdomen near the surgical anastomosis, similar but increased compared to prior May BE related to postsurgical change. Focal ileus, enteritis, or partial low-grade small bowel obstruction not entirely excluded. Biliary dilatation is stable compared to prior study postcholecystectomy. Per chart review Factors affecting care: History of small bowel obstruction, GERD, hypothyroidism Social determinants of health: Elderly History obtained from others: The patient's family member Consults: [facility] ALL IMAGES (IF OBTAINED) HAVE BEEN PERSONALLY REVIEWED AND INTERPRETED BY MYSELF. EKG with normal sinus rhythm, normal axis, prolonged QT, no obvious STEMI or atrial fibrillation Initial lactate elevated concerning for endorgan hypoperfusion CBC without leukocytosis, mild improving anemia, no thrombocytopenia Lipase is wnl indicating no pancreatic inflammation. BMP with LOLITA, mild hypokalemia LFTs show no evidence of hepatobiliary pathology. Urinalysis shows no evidence of urinary inflammation suggestive of UTI MDM Narrative: Patient was initially hypertensive, tachycardic and tachypneic was afebrile. I considered the following differential diagnosis: Perforation, small bowel obstruction, pancreatitis, hepatobiliary obstruction, dehydration, mesenteric is chemia I obtained a broad lab and imaging work-up to further elucidate the etiology patient complaints. Labs images remarkable for evidence of endorgan hypoperfusion with elevated lactate. There is no leukocytosis. No evidence of pancreatitis. No evidence of significant electrolyte abnormalities although there was mild hypokalemia. There is acute kidney injury suggestive of dehydration. Given the patient's elevated lactate I did give Zosyn. CT scan showed evidence of small bowel obstruction. Given patient was just admitted to outside hospital I did communicated with [facility] Dr. Salgado. Dr. Salgado excepted the patient's case for further evaluation and treatment. NG tube was placed. X-ray after NG tube showed acceptable position. The patient and/or family, caregivers express understanding. The patient and/or family, caregivers agrees with the plan. Total critical care time today provided was at least 0 minutes. This excludes separately billable procedures. Critical care time (if documented) is secondary to the patient having high probability of clinically significant/life threatening deterioration in the patient's condition which required my urgent intervention. Shared decision making: I will have a discussion with the patient and or visitors regarding risk/benefits of further testing or admission. They will be made aware of of the risk/benefits inherent in this decision they will be given the opportunity to voice understanding. Lab Data Attestation: I reviewed the patient's lab results. Labs: Laboratory Results - last 24 hr 03/31/23 04/01/23 22:54 02:25 WBC 10.4 RBC 3.95 L Hgb 11.2 L Hct 34.7 L MCV 87.8 MCH 28.4 MCHC 32.3 RDW Std Deviation 44.0 H RDW Coeff of Neno 13.7 Plt Count 464 H MPV 10.2 Immature Gran % (Auto) 1.100 H Neut % (Auto) 59.3 Lymph % (Auto) 31.9 [place] % (Auto) 7.2 Eos % (Auto) 0.2 Baso % (Auto) 0.3 Absolute Neuts (auto) 6.2 Absolute Lymphs (auto) 3.32 Nucleated RBC % 0 Sodium 136 Potassium 3.4 L Chloride 103 Carbon Dioxide 20.0 L Anion Gap 13 BUN 9 Creatinine 1.31 H Estim Creat Clear Calc 29.72 Est GFR (MDRD) Af Amer 51 L Est GFR (MDRD) Non-Af 42 L BUN/Creatinine Ratio 6.9 L Glucose 124 H Lactic Acid 3.4 H* Calcium 9.3 Total Bilirubin 0.70 Direct Bilirubin 0.20 AST 19 ALT 24 Alkaline Phosphatase 128 H Total Protein 7.5 Albumin 3.6 Globulin 3.9 Lipase 21 Urine Color Yellow Urine Clarity Clear Urine pH 7.0 Ur Specific [place] 1.005 Urine Protein 15 H Urine Glucose (UA) Normal Urine Ketones 5 H Urine Occult Blood 10 H Urine Nitrite Negative Urine Bilirubin Negative Urine Urobilinogen Normal Ur Leukocyte Esterase 25 H Urine RBC 0 SEEN Urine WBC 0 SEEN Ur Squamous Epith Cells 0 SEEN Urine Bacteria 0 SEEN Urine Mucus 0 SEEN Radiography Diagnostic Testing: Clinical Impression(s) from Imaging Studies Abdomen/Pelvis CT 03/31/23 22:29 IMPRESSION: Persistent common duct distention status post cholecystectomy. Persistent possibly slightly worse focal distention of the small bowel in the left upper quadrant. Consider focal ileus possible waxing and waning partial obstruction associated with possible adhesion. Postoperative change within the left of midline small bowel also with distention relatively unchanged since prior study likely associated postoperative change. Again noted is close proximity to the interpretation of outside of the abdominal wall which also may represent adhesions. Status post cholecystectomy. Status post hysterectomy. Postoperative change within the distal small bowel. Electronically Signed: Susanne Fontaine MD at 0:17 EDT , KUB X-Ray 04/01/23 02:03 IMPRESSION: NG tube with the tip in the stomach. . Electronically Signed: Susanne Fontaine MD at 3:06 EDT , Chest x-ray read and reviewed by myself shows evidence of appropriate NG tube positioning. Discharge Plan Triage Chief Complaint: Abd Pain ED Provider: Matt Dominguez Dx/Rx/DC Orders Clinical Impression: Acute kidney injury, Acute lactic acidosis, SBO (small bowel obstruction) Prescriptions: No Action alprazolam [Xanax] 1 mg Tablet 1 mg PO BID Hold Instructions: Resume on 03/21/23. ondansetron HCl 4 mg Tablet 4 mg PO Q6H PRN (Reason: Nausea) levothyroxine 50 mcg Tablet 50 mcg PO DAILY zolpidem [Ambien] 10 mg Tablet 10 mg PO QHS Hold Instructions: Resume on 03/21/23. esomeprazole magnesium 20 mg capsule,delayed release(DR/EC) 20 mg PO DAILY ezetimibe 10 mg Tablet 10 mg PO DAILY bupropion HCl 150 mg tablet extended release 24 hr 150 mg PO BID Eliquis 5 mg Tablet 5 mg PO BID docusate sodium 100 mg capsule PO Patient Comments: TAKE 1 CAPSULE BY MOUTH TWICE DAILY dicyclomine 10 mg capsule Patient Comments: TAKE 2 CAPSULES 3 TIMESNDAILY BEFORE MEALS Primary Care Provider: Jaison Hill Referrals: Jaison Hill MD [Primary Care Provider] - Disposition Disposition: Acute Care Hospital Discharge Location: [facility]
--- NOTE | 2023-03-31 22:29 | CT_ITS ---
STUDY: CT ABDOMEN AND PELVIS WITH CONTRAST REASON FOR EXAM: Female, 72 years old. Abdominal pain nausea vomiting history of SBO RADIATION DOSAGE (If Supplied By Facility): CTDIvol = ( 8.1 ) mGy, DLP = ( 298.36 ) mGycm TECHNIQUE: Transaxial images were obtained from the dome of the diaphragm to the symphysis pubis without oral contrast. IV 100mL Isovue-370 was administered. Sagittal and coronal images were reconstructed. Individualized dose optimization techniques were used for this CT. COMPARISON: CT abdomen and pelvis March 16, 2023 FINDINGS: The visualized lung bases are unremarkable. The visualized portions of the heart are within normal limits. There is a focal low attenuation within the liver measuring 1.3 cm compatible with a small cyst stable since prior study. There is persistent intra and extrahepatic ductal dilatation. At the level of the gallbladder the common duct measures 1 cm. Appears that the gallbladder is been surgically removed. Normal gallbladder and extrahepatic biliary system. Normal spleen. Normal pancreas. Normal bilateral adrenal glands. As an exophytic cyst right kidney with benign features measuring 9.7 mm stable since prior study. Normal left kidney. Normal visualized stomach. There is a distended appearance of small bowel in the left upper quadrant measuring up to 3.6 cm. There is postoperative change within the lower midabdomen stable since prior study. There is a fluid distended appearance of the bowel that level. This is stable since prior study. There is a mildly distended appearance of the distal small bowel. There is a relative mild amount of stool within the descending colon. There is a decompressed appearance of the sigmoid. There is non-visualization of the appendix. Normal abdominal aorta. Normal inferior vena cava. Normal retroperitoneum. Bladder is distended. There is absence of the uterus consistent with a prior hysterectomy. Normal abdominal wall. There are diffuse degenerative changes of the visualized lumbar spine. CT/Abdomen/Pelvis W IV Cont ONLY IMPRESSION: Persistent common duct distention status post cholecystectomy. Persistent possibly slightly worse focal distention of the small bowel in the left upper quadrant. Consider focal ileus possible waxing and waning partial obstruction associated with possible adhesion. Postoperative change within the left of midline small bowel also with distention relatively unchanged since prior study likely associated postoperative change. Again noted is close proximity to the interpretation of outside of the abdominal wall which also may represent adhesions. Status post cholecystectomy. Status post hysterectomy. Postoperative change within the distal small bowel. Electronically Signed: Susanne Fontaine MD at 0:17 EDT ,
[2023-03-31] MEDS: 0.9% Normal Saline 1,000 ML 1000 ML IV (22:54)
[2023-03-31] MEDS: Ondansetron 4 MG/2 ML Vial IV (22:54)
[2023-03-31] MEDS: Morphine 4 MG/ML Syringe IV (22:56)
[2023-03-31 22:58] VITALS: BMI 24.1
[2023-03-31 23:14] VITALS: BP 125/88; PULSE 83; RESP 22; O2SAT 98
[2023-03-31 23:29] LABS: AST(SGOT) 19 U/L (15-37); Alanine Aminotransfer ALT/SGPT 24 U/L (13-56); Albumin, Serum 3.6 g/dL (3.2-5.0); Alkaline Phosphatase 128 U/L (45-117); Anion Gap 13 (5-15); BUN 9 mg/dL (7-18); BUN/Creat Ratio 6.9 RATIO (10-20); Calcium,Total 9.3 mg/dL (8.5-10.1); Chloride 103 mmol/L (98-107); Creatinine, Serum 1.31 mg/dL (0.55-1.02); EST Glomerular Filtration Rate 42 mL/min (>60); Est Glom Filt Rate - Afr Amer 51 mL/min (>60); Estimated Creatinine Clearance 29.72 ml/min; Globulin 3.9 g/dL (2.2-4.2); Glucose 124 mg/dL (74-106); Lipase 21 U/L (13-75); Potassium 3.4 mmol/L (3.5-5.1); Protein, Total 7.5 g/dL (6.4-8.2); Sodium Level 136 mmol/L (136-145)
[2023-03-31 23:32] LABS: Absolute Lymphocyte Count 3.32 X10^3/uL (0.83-4.51); Absolute Neutrophil Count 6.2 X10^3/uL (2.0-7.7); Basophil# 0.03 X10^3/uL; Basophil% 0.3 % (0-1); Eosinophil# 0.02 X10^3/uL; Eosinophils% 0.2 % (0-5); Hematocrit 34.7 % (37-47); Hemoglobin 11.2 g/dL (12.0-15.0); Lymphocyte # 3.32 X10^3/ul (0.83-4.51); Lymphocyte % 31.9 % (19-41); Mean Corp Hgb Conc 32.3 g/dL (32-36); Mean Corpuscular Hgb 28.4 pg (27.0-32.0); Mean Corpuscular Volume 87.8 fL (81-99); Mean Platelet Vol. 10.2 fl (6.2-12.0); Monocyte# 0.75 X10^3/uL; Monocyte% 7.2 % (0-10); NRBC Flagged by Analyzer 0 % (0-5); Neutrophil # 6.17 X10^3/uL (2.7-7.7); Neutrophil % 59.3 % (47-70); Platelet Count 464 K/mm3 (150-450); RBC Distribution Width CV 13.7 % (11.6-14.6); Red Blood Count 3.95 M/mm3 (4.2-5.4); White Blood Count 10.4 K/mm3 (4.4-11.0)
[2023-03-31 23:42] LABS: Lactic Acid 3.4 mmol/L (0.4-1.9)
[2023-03-31] MEDS: HYDROmorphone 0.5 MG/0.5 ML SYRINGE IV (23:56)
[2023-04-01] VITALS (47 sets, daily range): BP systolic 103–170; BP diastolic 71–96; PULSE 67–98; RESP 16–22; O2SAT 87–100
[2023-04-01] MEDS: Ketorolac 15 MG/ML Vial IV (00:54)
[2023-04-01] MEDS: HYDROmorphone 1 MG/ML Syringe IV ×4 (00:54→13:47)
--- NOTE | 2023-04-01 02:03 | RAD_ITS ---
STUDY: X-RAY - ABDOMEN/PELVIS REASON FOR EXAM: Female, 72 years old. NG Insertion TECHNIQUE: Single AP view of the abdomen / pelvis. COMPARISON: March 16, 2023 abdomen series, CT abdomen and pelvis March 31, 2023 FINDINGS: Normal visualized lung bases. The liver spleen and most of the kidneys are scared. There R visualized bilateral nephrograms. RAD/Abdomen Single View (Portable) IMPRESSION: NG tube with the tip in the stomach. . Electronically Signed: Susanne Fontaine MD at 3:06 EDT ,
[2023-04-01] MEDS: 0.9% Normal Saline 1,000 ML 999 ML IV (02:26)
[2023-04-01 02:33] LABS: Bacteria 0 SEEN /hpf (None Seen); Mucous, Urine 0 SEEN /hpf (<or=2+); Red Blood Cells-Urine 0 SEEN /hpf (0-5); Squamous Epithelial Cells - UA 0 SEEN /hpf (5-10); White Blood Cells 0 SEEN /hpf (0-5)
[2023-04-01 02:50] LABS: Color, Urine Yellow (Yellow); Glucose, Dipstick Normal (Normal); Ketone-Dipstick 5 mg/dl (Negative); Leukocyte Esterase-Dipstick 25 /ul (Negative); Nitrite-Dipstick Negative (Negative); Occult Blood-Urine 10 /ul (Negative); Protein-Dipstick 15 mg/dl (Negative); Specific Gravity, Urine 1.005 (1.002-1.030); Urine Bilirubin Dipstick Negative (Negative); Urine Clarity Clear (Clear); Urine Urobilinogen Normal (Normal)
[2023-04-01 03:09] LABS: Reflex Lactate? Y
[2023-04-01] MEDS: Ondansetron 4 MG/2 ML Vial IV ×2 (03:15→09:23)
[2023-04-01 04:17] LABS: Lactic Acid 1.2 mmol/L (0.4-1.9)
[2023-04-01] MEDS: Metoclopramide 10 MG/2 ML Vial 5 MG IV ×3 (04:49→13:36)
--- NOTE | 2023-04-01 09:29 | RAD_ITS ---
INDICATION: Abdominal pain. EXAMINATION/TECHNIQUE: X-RAY - XR Abdomen 1 View COMPARISON: Previous of the same date done earlier. FINDINGS: BOWEL GAS PATTERN: Nasogastric tube with the tip in the stomach region. Nonobstructive gas pattern. No bowel or stomach distention. FREE AIR: Not assessed on a single supine view. ORGANOMEGALY: Not seen. CALCIFICATIONS: No abnormal calcifications observed. LOWER CHEST: Not included on this examination. BONES AND SOFT TISSUES: Contrast in the bladder from previous contrast study. RAD/Abdomen Single View (Portable) IMPRESSION: 1. Nasogastric tube with the tip in the region of the stomach. 2. Nonspecific gas pattern. 3. Contrast in the bladder from recent contrast study. Electronically Signed: Guillemro Moore MD at 10:17 EDT ,
--- NOTE | 2023-04-01 10:36 | ED.RN ---
PT CONTINUES TO BE IN PAIN AND NAUSEATED. XRAY SHOWS NG IN TIP OF STOMACH, DR LIMA VERBALLY ORDERS TO ADVANCE NG AT LEAST 2CM. NG ADVANCED BY THIS NURSE AND DAVID BRITO, GASTRIC CONTENT ASPIRATED. NG TO LIWS. WILL MONITOR PT.
--- NOTE | 2023-04-01 13:54 | ED.RN ---
report called to -72 nurse kulwinder at this time.
== END 2023-04-01 14:49 | disposition short-term general hospital (02) ==
PROVIDERS: Emergency Provider Emergency Medicine; Visit Provider Emergency Medicine
DX: K56.609 Unspecified intestinal obstruction, unspecified as to partial versus complete obstruction (principal); N17.9 Acute kidney failure, unspecified; N18.30 Chronic kidney disease, stage 3 unspecified; E78.5 Hyperlipidemia, unspecified; N25.89 Other disorders resulting from impaired renal tubular function; F41.8 Other specified anxiety disorders; Z86.718 Personal history of other venous thrombosis and embolism; Z79.01 Long term (current) use of anticoagulants; E03.9 Hypothyroidism, unspecified; Z79.899 Other long term (current) drug therapy; Z90.49 Acquired absence of other specified parts of digestive tract; Z90.710 Acquired absence of both cervix and uterus
CPT/HCPCS: 43752; 74018; 74177; 80048; 80076; 81001; 83605; 83690; 85025; 87040; 93005; 96361; 96365; 96366; 96375; 96376; 99285; J7030; Q9967; A4216; J2405

== ENCOUNTER 2023-12-06 15:33 | Inpatient (IN) | payer MEDICARE, SELFPAY ==
[2023-12-06 15:32] VITALS: BP 170/106; PULSE 83; RESP 16; O2SAT 99
[2023-12-06 15:33] VITALS: BP 175/141; PULSE 83; RESP 16; TEMP 36.3; O2SAT 99; BMI 22.1
--- NOTE | 2023-12-06 16:11 | CT_ITS ---
STUDY: CT ABDOMEN AND PELVIS WITH CONTRAST REASON FOR EXAM: Female, 73 years old. Abdominal pain RADIATION DOSAGE (If Supplied By Facility): CTDIvol = ( 8.86 ) mGy, DLP = ( 355.18 ) mGycm TECHNIQUE: Transaxial images were obtained from the dome of the diaphragm to the symphysis pubis without oral contrast. IV 100mL Isovue-300 was administered. Sagittal and coronal images were reconstructed. Individualized dose optimization techniques were used for this CT. COMPARISON: None. FINDINGS: The visualized lung bases are unremarkable. The visualized portions of the heart are within normal limits. Normal liver. There are surgical clips in the gallbladder fossa consistent with a prior cholecystectomy. Normal spleen. Normal pancreas. Normal bilateral adrenal glands. Normal right kidney. Normal left kidney. Normal visualized stomach. There is small bowel distention adjacent to postoperative change of the loop in the pelvis. Normal colon. There is non-visualization of the appendix. There is atherosclerotic calcification of the abdominal aorta, without a demonstrated aneurysm. Normal inferior vena cava. Normal retroperitoneum. Normal urinary bladder. There is absence of the uterus consistent with a prior hysterectomy. There is no free fluid in the upper pelvis Normal abdominal wall. Normal osseous structures. CT/Abdomen/Pelvis W IV Cont ONLY IMPRESSION: Postoperative change. Small bowel distention with partial obstruction versus ileus. Electronically Signed: Jose Rodriguez MD at 18:16 EDT ,
[2023-12-06 16:53] LABS: Absolute Neutrophil Count 3.3 X10^3/uL (2.0-7.7); Basophil# 0.06 X10^3/uL; Basophil% 0.8 % (0-1); Eosinophil# 0.06 X10^3/uL; Eosinophils% 0.8 % (0-5); Hematocrit 32.2 % (37-47); Hemoglobin 10.1 g/dL (12.0-15.0); Lymphocyte % 44.8 % (19-41); Mean Corp Hgb Conc 31.4 g/dL (32-36); Mean Corpuscular Hgb 26.7 pg (27.0-32.0); Mean Corpuscular Volume 85.2 fL (81-99); Mean Platelet Vol. 11.1 fl (6.2-12.0); Monocyte# 0.62 X10^3/uL; Monocyte% 8.4 % (0-10); NRBC Flagged by Analyzer 0 % (0-5); Neutrophil # 3.28 X10^3/uL (2.7-7.7); Neutrophil % 44.7 % (47-70); POSITIVE COUNT YES; Platelet Count 281 K/mm3 (150-450); RBC Distribution Width CV 16.6 % (11.6-14.6); RBC Distribution Width SD 51.6 fl (35.1-43.9); Red Blood Count 3.78 M/mm3 (4.2-5.4); White Blood Count 7.4 K/mm3 (4.4-11.0)
[2023-12-06 16:57] LABS: Differential Indicated SCAN CRITERIA MET
[2023-12-06 17:12] LABS: ALB/GLOB Ratio 0.9 RATIO (0.9-2.4); AST(SGOT) 43 U/L (15-37); Alanine Aminotransfer ALT/SGPT 22 U/L (13-56); Albumin, Serum 3.5 g/dL (3.2-5.0); Alkaline Phosphatase 78 U/L (45-117); Anion Gap 6 (5-15); BUN 12 mg/dL (7-18); BUN/Creat Ratio 10.8 RATIO (10-20); Calcium,Total 9.5 mg/dL (8.5-10.1); Chloride 113 mmol/L (98-107); Creatinine, Serum 1.11 mg/dL (0.55-1.02); EST Glomerular Filtration Rate 51 mL/min (>60); Est Glom Filt Rate - Afr Amer 62 mL/min (>60); Estimated Creatinine Clearance 34.57 ml/min; Globulin 3.9 g/dL (2.2-4.2); Glucose 100 mg/dL (74-106); Lipase 36 U/L (13-75); Potassium 4.7 mmol/L (3.5-5.1); Protein, Total 7.4 g/dL (6.4-8.2); Sodium Level 141 mmol/L (136-145)
[2023-12-06] MEDS: Morphine 4 MG/ML Syringe IV ×2 (17:14→18:59)
[2023-12-06] MEDS: Ondansetron 4 MG/2 ML Vial IV (17:14)
[2023-12-06] MEDS: 0.9% Normal Saline (1000mL) 1,000 ML 1000 ML IV (17:14)
--- NOTE | 2023-12-06 17:19 | ED.VIS.GI ---
HPI HPI - GI History of Present Illness Chief Complaint: Abd Pain Informant: patient Narrative Narrative: Worsening pain mid abdomen to the left side for the past 5 days. She has been having soft nonbloody bowel movements. Had 5 today. Nausea without vomiting. Multiple abdominal surgeries including cholecystectomy appendectomy hysterectomy. Also reports 2 years ago had 40% small bowel resected due to what she describes as volvulus done in [place]. History of bowel obstructions in the past. Denies any vomiting or abdominal distention. Positive flatus. States is chronic pain however pain different worsening over last 5 days. States has chills however no fevers. Denies urinary symptoms. Denies history of pancreatitis. Denies alcohol history. Prior similar symptoms: Yes [facility] Medical History Anxiety and depression Chronic anemia CKD (chronic kidney disease), stage III Depression DVT (deep venous thrombosis) GERD (gastroesophageal reflux disease) History of small bowel obstruction History of venous thromboembolism HLD (hyperlipidemia) Hyperthyroidism Hypothyroidism Irritable bowel Scarlet fever Home Medications alprazolam 1 mg tablet (Xanax) 1 mg PO BID 12/11/22 [History Last Taken Unknown] bupropion HCl 150 mg 24 hr tablet, extended release 150 mg PO BID 12/11/22 [History Last Taken Unknown] esomeprazole magnesium 20 mg capsule,delayed release 20 mg PO DAILY 12/11/22 [History Last Taken Unknown] ezetimibe 10 mg tablet 10 mg PO DAILY 12/11/22 [History Last Taken Unknown] levothyroxine 50 mcg tablet 50 mcg PO DAILY 12/11/22 [History Last Taken Unknown] ondansetron HCl 4 mg tablet 4 mg PO Q6H PRN Nausea 12/11/22 [History Last Taken Unknown] zolpidem 10 mg tablet (Ambien) 10 mg PO QHS 12/11/22 [History Last Taken Unknown] docusate sodium 100 mg capsule 100 mg PO BID 03/31/23 [History Last Taken Unknown] budesonide 160 mcg-glycopyr 9 mcg-formot 4.8 mcg/actuation HFA inhaler (Breztri Aerosphere) 2 inh inhalation BID 12/06/23 [History Last Taken Unknown] buspirone 15 mg tablet 7.5 mg PO BID 12/06/23 [History Last Taken Unknown] polyethylene glycol 3350 17 gram/dose oral powder (Miralax) 17 g PO BID 12/06/23 [History Last Taken Unknown] ropinirole 0.5 mg tablet 0.5 mg PO BID 12/06/23 [History Last Taken Unknown] warfarin 5 mg tablet 5 mg PO DAILY 12/06/23 [History Last Taken Unknown] Allergy/AdvReac Type Severity Reaction Status Date / Time cefdinir [From Omnicef] Allergy Hives Verified 03/31/23 22:24 codeine Allergy NEEDS Verified 03/31/23 22:24 FOLLOW-UP latex Allergy Anaphylaxis Verified 03/31/23 22:24 prochlorperazine Allergy NEEDS Verified 03/31/23 22:24 [From Compazine] FOLLOW-UP shellfish derived Allergy Anaphylaxis Verified 03/31/23 22:24 levofloxacin [From Levaquin] AdvReac Vomiting Verified 03/31/23 22:24 [id number] Reductase AdvReac NEEDS Verified 03/31/23 22:24 Inhibitor FOLLOW-UP Family History (Updated 03/16/23 @ 06:[address] Jessica Thomas MD) Mother Heart disease COPD (chronic obstructive pulmonary disease) Father Heart disease Hypertension CAD (coronary artery disease) Myocardial infarction Surgical History History of appendectomy History of cholecystectomy History of colon surgery History of total abdominal hysterectomy Social History (Updated 03/16/23 @ 06:[address] Jessica Thomas MD) household members: none Smoking Status: Never smoker alcohol intake: never substance use type: does not use ROS ROS ED Constitutional Constitutional ED: Denies chills, fever(s) or sweats Eyes Eyes: Denies change in vision ENT ENT ED: Denies dysphagia or sore throat Cardiovascular Cardiovascular: Denies chest pain, leg edema, palpitations or racing heartbeat Respiratory/Chest Respiratory/Chest: Denies cough, dyspnea or dyspnea on exertion Gastrointestinal Gastrointestinal: Reports abdominal pain and nausea; Denies diarrhea or vomiting Genitourinary Genitourinary ED: Denies dysuria, hematuria or urinary frequency Musculoskeletal Musculoskeletal: Denies back pain, extremity pain or neck pain Integumentary Denies rash or wounds Neurologic Neurologic: Denies headache(s), paresthesias or weakness EXAM Physical Exam Const Vital Signs: 03/21/24 15:33 12/06/23 15:32 12/06/23 17:32 Temperature 97.4 F L 98.1 F Temperature Source Oral Oral Pulse Rate 83 83 79 Respiratory Rate 16 16 18 Blood Pressure 175/141 H 170/106 H 124/109 H Blood Pressure Mean 152 127 114 Pulse Ox 99 99 93 Oxygen Delivery Method Room Air Room Air Room Air 12/06/23 18:42 12/06/23 21:00 Temperature Temperature Source Pulse Rate 75 67 Respiratory Rate 16 18 Blood Pressure 150/70 H 151/69 H Blood Pressure Mean 96 96 Pulse Ox 98 95 Oxygen Delivery Method Room Air Room Air Positive well nourished and well developed Constitutional Narrative: Nontoxic, tearful. General Appearance ED: well developed HEENT Reports moist mucous membranes normocephalic and atraumatic Eyes PERRL, EOMs intact bilaterally and conjunctivae normal General Eye ED: Yes normal appearance of both eyes Neck no lymphadenopathy and supple General: Negative for tenderness Chest Wall Chest: Negative for tenderness Resp normal respiratory effort and normal air movement Effort and Inspection: symmetric chest movement; Negative for respiratory distress Cardio regular rate, regular rhythm and no murmurs Peripheral Pulses: pulses 2+ throughout GI normal to inspection, nondistended, normoactive bowel sounds GI Narrative: Tender palpation mid abdomen to the left. No guarding or rebound. Negative Bragg's or McBurney's. Palpation: Negative for guarding or rebound tenderness present Back/Spine no CVA tenderness and no thoracic nor lumbar tenderness Extremity normal to inspection General Extremety ED: Negative for edema or tenderness General Extremity: Negative for edema Neuro oriented x3 and no sensory deficits noted Sensorium / Orientation: awake and alert Skin no rashes or lesions noted and no wounds MDM MDM MDM Narrative Medical decision making narrative: Interventions / MDM: Differential diagnosis: Bowel obstruction Diagnosis considered but do not suspect: Colitis however CT negative. Pancreatitis, negative labs and CT. My EKG interpretation: N/A Imaging independently reviewed and interpreted by myself: CT abdomen pelvis: Partial small bowel obstruction distal bowels. No proximal dilatation. External documents reviewed: Records from March 2023 admission for similar failing p.o. intake x 2 in the hospital was transferred to [facility]. Test considered but not ordered:N/A ED course: Abdominal labs ordered, morphine Zofran fluids started. CT scan ordered for further evaluation. 1721: Labs white count 7.4 hemoglobin 10.1. Creatinine 1.11. Lipase 36. Liver enzymes initially normal AST slightly up at 43. 1730: CT results confirming concerns for partial small bowel obstruction. Reviewing records confirming she required transfer in March 2023 with her complex bowels surgeries and failing inpatient management here. I did discuss with on-call surgeon Dr. Umanzor who was a part of management at that time. He did review the images, no proximal dilatation also and did not feel NG is required as patient did not want this. He recommended transferring to tertiary center with her surgical history. Discussed this with patient who understands and agrees. Nausea increasing, IV Reglan and additional morphine given for symptom control. Will initiate transfer process. 1800: I spoke with [facility] transfer line and surgery quarterback, Dr. Staley, discussed patient's history. She is excepted to the facility however reports likely will not have a bed this evening. He reports treatment would be conservative therapy at this time and recommended admission here first. I rediscussed with Dr. Umanzor, he will follow-up for conservative treatment however states would not operate down here if symptoms do not improve. This was relayed to patient and family. Will speak with hospitalist service for admission. 2359: Recheck with transfer facility, no current beds available. We discussed with hospitalist for admission. Patient's pain was returning, additional morphine was ordered for symptom control. Re-evaluation: stable Disposition discussed with patient/family/significant other: Patient Case discussed with consulting clinician: General surgery, hospitalist, [facility] general surgery This note was generated with mobli dictation software. It may contain incorrect words, spelling, and punctuation that were not noted in checking the note before signing. Lab Data Attestation: I reviewed the patient's lab results. Labs: Laboratory Results - last 24 hr 12/06/23 12/06/23 16:40 17:00 WBC 7.4 RBC 3.78 L Hgb 10.1 L Hct 32.2 L MCV 85.2 MCH 26.7 L MCHC 31.4 L RDW Std Deviation 51.6 H RDW Coeff of Neno 16.6 H Plt Count 281 MPV 11.1 Immature Gran % (Auto) 0.500 Neut % (Auto) 44.7 L Lymph % (Auto) 44.8 H Hooker % (Auto) 8.4 Eos % (Auto) 0.8 Baso % (Auto) 0.8 Absolute Neuts (auto) 3.3 Absolute Lymphs (auto) 3.30 Nucleated RBC % 0 Platelet Estimate ADEQUATE RBC Morphology N CHROM Anisocytosis RARE Ovalocytes RARE Sodium 141 Potassium 4.7 Chloride 113 H Carbon Dioxide 22.0 Anion Gap 6 BUN 12 Creatinine 1.11 H Estim Creat Clear Calc 34.57 Est GFR (MDRD) Af Amer 62 Est GFR (MDRD) Non-Af 51 L BUN/Creatinine Ratio 10.8 Glucose 100 Lactic Acid 1.2 Calcium 9.5 Total Bilirubin 0.50 AST 43 H ALT 22 Alkaline Phosphatase 78 Total Protein 7.4 Albumin 3.5 Globulin 3.9 Albumin/Globulin Ratio 0.9 Lipase 36 Radiography Diagnostic Testing: Clinical Impression(s) from Imaging Studies Abdomen/Pelvis CT 12/06/23 16:11 IMPRESSION: Postoperative change. Small bowel distention with partial obstruction versus ileus. Electronically Signed: Jose Rodriguez MD at 18:16 EDT , Discharge Plan Triage Chief Complaint: Abd Pain ED Provider: [facility] Monique Dx/Rx/DC Orders Prescriptions: No Action alprazolam [Xanax] 1 mg Tablet 1 mg PO BID Hold Instructions: Resume on 03/21/23. ondansetron HCl 4 mg Tablet 4 mg PO Q6H PRN (Reason: Nausea) Patient Comments: takes 8mg q6hr prn levothyroxine 50 mcg Tablet 50 mcg PO DAILY zolpidem [Ambien] 10 mg Tablet 10 mg PO QHS Hold Instructions: Resume on 03/21/23. esomeprazole magnesium 20 mg capsule,delayed release(DR/EC) 20 mg PO DAILY ezetimibe 10 mg Tablet 10 mg PO DAILY bupropion HCl 150 mg tablet extended release 24 hr 150 mg PO BID docusate sodium 100 mg capsule 100 mg PO BID Patient Comments: TAKE 1 CAPSULE BY MOUTH TWICE DAILY ropinirole 0.5 mg tablet 0.5 mg PO BID warfarin 5 mg tablet 5 mg PO DAILY buspirone 15 mg tablet 7.5 mg PO BID Breztri Aerosphere 160-9-4.8 mcg/actuation HFA aerosol inhaler 2 inh inhalation BID polyethylene glycol 3350 [Miralax] 17 gram/dose powder 17 g PO BID Primary Care Provider: Jaison Hill Referrals: Jaison Hill MD [Primary Care Provider] -
[2023-12-06 17:20] LABS: Platelet Estimate ADEQUATE (ADEQ)
[2023-12-06 17:21] LABS: Anisocytosis RARE; Ovalocyte RARE; Red Cell Morphology N CHROM NORMAL (NORM C&C)
[2023-12-06 17:32] VITALS: BP 124/109; PULSE 79; RESP 18; TEMP 36.7; O2SAT 93
[2023-12-06 17:44] LABS: Lactic Acid 1.2 mmol/L (0.4-1.9)
[2023-12-06 18:42] VITALS: BP 150/70; PULSE 75; RESP 16; O2SAT 98
[2023-12-06] MEDS: Metoclopramide 10 MG/2 ML Vial 5 MG IV (18:59)
[2023-12-06 21:00] VITALS: BP 151/69; PULSE 67; RESP 18; O2SAT 95
[2023-12-06] MEDS: 0.9% Normal Saline (1000mL) 1,000 ML 100 ML IV (21:22)
[2023-12-06 23:00] VITALS: BP 125/63; PULSE 85; RESP 18; O2SAT 100
[2023-12-07] VITALS (9 sets, daily range): BP systolic 133–161; BP diastolic 58–102; PULSE 72–86; RESP 12–28; TEMP 36.3–37.5; O2SAT 95–100; BMI 22.3
--- NOTE | 2023-12-07 00:08 | PCM.HP.STD ---
HPI - General General Date of Admission: 12/07/23 Date of Service: 12/06/23 Chief Complaint: Abdominal pain. HPI Narrative The patient is a 72 y/o F w/ PMHx: Hypothyroidism, Chronic anemia, CKD stage III unclear subtype, Anxiety and Depression, Hx VTE, HLD, GERD, Hx SBO s/p 7 prior abdominal surgeries including bowel resection who presents to the [facility] ED on 12/06/23 with history of ongoing worsening mid abdominal to left abdominal pain for the last 7 days with soft nonbloody bowel movements, several on day of presentation with nausea with dry heaving intermittently per discussion with daughter with ongoing flatus but given pain has been worsening with onset of chills with no fevers prompted ED evaluation. Patient reports discomfort primarily constant dull aching with intermittent sharp stabbing and cramping. She notes it is worse with palpation of the abdomen. Pain ranges from 6-10 out of 10 in severity. She does note that her nausea improved with Reglan mostly in the ED. Workup in the ED included T97.4, heart rate 83, BP 175/1 141, respiratory rate 16, 99% on room air with most recent repeat vitals heart rate 75, BP 150/70, respiratory rate 16, 98% on room air, CBC with WBC 7.4, hemoglobin 10.1, MCV 85.2, platelet 281 without marked shift, CMP with chloride 113, BUN/creatinine 12/1.11, hepatic profile not marked aside AST 43, lipase 36, lactic acid 1.2, CT abdomen and pelvis with postoperative changes, small bowel distention with a partial obstruction adjacent to the postoperative change of the loop in the pelvis versus ileus. In the ED patient was administered 1 L bolus as well as maintenance normal saline IV fluids, Zofran 4 mg IV x 1, Reglan 5 mg IV x 1, morphine 4 mg IV x 2. ED discussed case with general surgery who reviewed CT imaging and was on the team at that time patient had previously been evaluated and required transfer 03/2023 secondary to complex bowel surgery history and failed inpatient conservative SBO management at that time with recommendation for transfer to tertiary facility to be cautious. [facility] Medical History Anxiety and depression Chronic anemia CKD (chronic kidney disease), stage III Depression DVT (deep venous thrombosis) GERD (gastroesophageal reflux disease) History of small bowel obstruction History of venous thromboembolism HLD (hyperlipidemia) Hyperthyroidism Hypothyroidism Irritable bowel Scarlet fever Home Medications alprazolam 1 mg tablet (Xanax) 1 mg PO BID 12/11/22 [History Last Taken Unknown] bupropion HCl 150 mg 24 hr tablet, extended release 150 mg PO BID 12/11/22 [History Last Taken Unknown] esomeprazole magnesium 20 mg capsule,delayed release 20 mg PO DAILY 12/11/22 [History Last Taken Unknown] ezetimibe 10 mg tablet 10 mg PO DAILY 12/11/22 [History Last Taken Unknown] levothyroxine 50 mcg tablet 50 mcg PO DAILY 12/11/22 [History Last Taken Unknown] ondansetron HCl 4 mg tablet 4 mg PO Q6H PRN Nausea 12/11/22 [History Last Taken Unknown] zolpidem 10 mg tablet (Ambien) 10 mg PO QHS 12/11/22 [History Last Taken Unknown] docusate sodium 100 mg capsule 100 mg PO BID 03/31/23 [History Last Taken Unknown] budesonide 160 mcg-glycopyr 9 mcg-formot 4.8 mcg/actuation HFA inhaler (Breztri Aerosphere) 2 inh inhalation BID 12/06/23 [History Last Taken Unknown] buspirone 15 mg tablet 7.5 mg PO BID 12/06/23 [History Last Taken Unknown] polyethylene glycol 3350 17 gram/dose oral powder (Miralax) 17 g PO BID 12/06/23 [History Last Taken Unknown] ropinirole 0.5 mg tablet 0.5 mg PO BID 12/06/23 [History Last Taken Unknown] warfarin 5 mg tablet 5 mg PO DAILY 12/06/23 [History Last Taken Unknown] Allergy/AdvReac Type Severity Reaction Status Date / Time cefdinir [From Omnicef] Allergy Hives Verified 03/31/23 22:24 codeine Allergy NEEDS Verified 03/31/23 22:24 FOLLOW-UP latex Allergy Anaphylaxis Verified 03/31/23 22:24 prochlorperazine Allergy NEEDS Verified 03/31/23 22:24 [From Compazine] FOLLOW-UP shellfish derived Allergy Anaphylaxis Verified 03/31/23 22:24 levofloxacin [From Levaquin] AdvReac Vomiting Verified 03/31/23 22:24 [id number] Reductase AdvReac NEEDS Verified 03/31/23 22:24 Inhibitor FOLLOW-UP Family History (Updated 03/16/23 @ 06:[address] Jessica Thomas MD) Mother Heart disease COPD (chronic obstructive pulmonary disease) Father Heart disease Hypertension CAD (coronary artery disease) Myocardial infarction Surgical History History of appendectomy History of cholecystectomy History of colon surgery History of total abdominal hysterectomy Social History (Updated 03/16/23 @ 06:[address] Jessica Thomas MD) household members: none Smoking Status: Never smoker alcohol intake: never substance use type: does not use ROS ROS Narrative Admission Review of Systems: CONSTITUTIONAL: No weight loss, fever, chills, + weakness or fatigue. HEENT: Eyes: No visual loss, blurred vision, double vision or yellow sclerae. Ears, Nose, Throat: No hearing loss, sneezing, congestion, runny nose or sore throat. SKIN: No rash or itching, lesions, wounds. CARDIOVASCULAR: No chest pain, chest pressure or chest discomfort, palpitations, edema, orthopnea, syncopal events. RESPIRATORY: No shortness of breath, cough or sputum, wheezing, hemoptysis. GASTROINTESTINAL: + anorexia, nausea with dry heaving, abdominal pain, more loose stools. No melena, BRBPR. GENITOURINARY: No dysuria, frequency, urgency or retention. NEUROLOGICAL: No headache, dizziness, syncope, paralysis, ataxia, numbness or tingling in the extremities, focal weakness, change in bowel or bladder control, seizure. MUSCULOSKELETAL: + muscle, back pain, joint pain or stiffness. HEMATOLOGIC: + anemia. No marked bleeding or bruising. LYMPHATICS: No enlarged nodes. No history of splenectomy. PSYCHIATRIC: + history of depression or anxiety. ENDOCRINOLOGIC: No reports of sweating, cold or heat intolerance. No polyuria or polydipsia. ALLERGIES: + History of hives and anaphylaxis. Vital Signs Vital Signs Vital Signs: 12/06/23 15:33 12/06/23 15:32 12/06/23 17:32 Temperature 97.4 F L 98.1 F Temperature Source Oral Oral Pulse Rate 83 83 79 Respiratory Rate 16 16 18 Blood Pressure 175/141 H 170/106 H 124/109 H Blood Pressure Mean 152 127 114 Pulse Ox 99 99 93 Oxygen Delivery Method Room Air Room Air Room Air 12/06/23 18:42 12/06/23 21:00 Temperature Temperature Source Pulse Rate 75 67 Respiratory Rate 16 18 Blood Pressure 150/70 H 151/69 H Blood Pressure Mean 96 96 Pulse Ox 98 95 Oxygen Delivery Method Room Air Room Air Weight Weight: 117 lb 4.575 oz Body Mass Index (BMI) 22.1 Physical Exam Narrative Physical Examination: General: Awake, alert, oriented x 3 and cooperative, seated upright in the bed, fatigued, pain ongoing but lessened, worse with palpation, nausea abated with reglan. Skin: Normal color, normal turgor, no icterus, no cyanosis. HEENT: AT/NC, EOMI, PERRLA, dry MM, no carotid bruits or JVD noted. Lungs: CTA bilaterally, moderate effort, mild decrease BL bases, no rales, ronchi or wheezing. Heart: Regular rate and rhythm; no gallop, rub audible. Abdomen: Soft, TTP worse LLQ w/ voluntary guarding, no marked distention, diffusely reduced bowel sounds, no obvious HSM but difficult evaluation given pain. Extremities: No cyanosis, clubbing, or edema. Neurological: Patient awake, alert, oriented as noted, cognitive function intact; pupils equally reactive to light and accommodation, cranial nerves II-XII grossly normal, moving all 4 extremities, no focal deficits, strength moderately to severely global decrease secondary to acute presentation. Psychiatric: Affect appears anxious but more calm about her recent issues, underlying history of anxiety and depression. Results Lab / Micro Data 12/06/23 16:40 12/06/23 16:40 Labs: Laboratory Results - last 24 hr 12/06/23 16:40: WBC 7.4, RBC 3.78 L, Hgb 10.1 L, Hct 32.2 L, MCV 85.2, MCH 26.7 L, MCHC 31.4 L, RDW Std Deviation 51.6 H, RDW Coeff of Neno 16.6 H, Plt Count 281, MPV 11.1, Immature Gran % (Auto) 0.500, Neut % (Auto) 44.7 L, Lymph % (Auto) 44.8 H, Barry % (Auto) 8.4, Eos % (Auto) 0.8, Baso % (Auto) 0.8, Absolute Neuts (auto) 3.3, Absolute Lymphs (auto) 3.30, Nucleated RBC % 0, Platelet Estimate ADEQUATE, RBC Morphology N CHROM, Anisocytosis RARE, Ovalocytes RARE, Sodium 141, Potassium 4.7, Chloride 113 H, Carbon Dioxide 22.0, Anion Gap 6, BUN 12, Creatinine 1.11 H, Estim Creat Clear Calc 34.57, Est GFR (MDRD) Af Amer 62, Est GFR (MDRD) Non-Af 51 L, BUN/Creatinine Ratio 10.8, Glucose 100, Calcium 9.5, Total Bilirubin 0.50, AST 43 H, ALT 22, Alkaline Phosphatase 78, Total Protein 7.4, Albumin 3.5, Globulin 3.9, Albumin/Globulin Ratio 0.9, Lipase 36 12/06/23 17:00: Lactic Acid 1.2 Imaging Radiology Impression Abdomen/Pelvis CT 12/06/23 16:11 IMPRESSION: Postoperative change. Small bowel distention with partial obstruction versus ileus. Electronically Signed: Jose Rodriguez MD at 18:16 EDT , Assessment & Plan Assessment/Plan (1) SBO (small bowel obstruction): PLAN: Plan The patient is a 72 y/o F w/ PMHx: Hypothyroidism, Chronic anemia, CKD stage III unclear subtype, Anxiety and Depression, Hx VTE, HLD, GERD, Hx SBO s/p 7 prior abdominal surgeries including bowel resection who presents to the [facility] ED on 12/06/23 with history of ongoing worsening mid abdominal to left abdominal pain for the last 7 days with soft nonbloody bowel movements, several on day of presentation with nausea with dry heaving intermittently per discussion with daughter with ongoing flatus but given pain has been worsening with onset of chills with no fevers prompted ED evaluation. #1. Acute intractable abdominal pain secondary to possible partial low-grade small bowel obstruction versus ileus although surgery reviewed imaging and concern for more likely partial bowel obstruction: Given patient is still awaiting [facility] transfer bed at recommendation of general surgery will admit to [place], maintain on IVFs, NGT per surgery discretion and currently they noted that patient may defer this given improvement of nausea and not dry heaving but if this does occur low threshold to place, if recurrent loose stools will obtain C. difficile as well as enteric stool assessments, will obtain respiratory viral panel, maintain strict I&Os, IV pain/anti-emetics PRN, serial KUB as needed to montior bowel function, PPI IV, maintain NPO on bowel rest. General surgery consulted while at [facility] but again per their recommendation is still awaiting transfer bed at [facility]. #2. Elevated BP without hypertensive diagnosis: Patient with notably elevated BP upon ED presentation, likely pain related however we will continue to closely monitor and add regimen if appropriate, as needed IV hydralazine especially given n.p.o. status as noted. #3. CKD stage III unclear subtype: Admission BUN/creatinine 08/17.11, baseline creatinine of prior primarily 0.8-1.4, stable, continue to trend. #4. Anxiety and depression: Will temporally hold patient home bupropion, oral Xanax and BuSpar home regimen, will have as needed low-dose Ativan for anxiety. #5. Hypothyroidism: Will temporally hold patient home levothyroxine regimen; however, if prolonged may need to consider one half IV dosing.. #6. Hyperlipidemia: We will temporarily hold patient home ezetimibe regimen. #7. History VTE: Notes history of remote DVT 3-4 years prior and was told at that time she would require continued chronic anticoagulation, unclear exact reason but from discussion it sounds as though it was a severe episode, will obtain INR and hold Coumadin with transition to heparin drip once appropriate. #8. Restless leg syndrome: We will temporarily hold patient home Requip regimen. #9. Chronic normocytic anemia: Admission hemoglobin 10.1, MCV 85.2, baseline hemoglobin noted prior -, stable, continue to trend. #10. GERD: We will maintain IV PPI. #11. DVT prophylaxis: We will temporally hold patient home coumadin regimen with INR requested, repeat level in AM, once INR 2 will overlap with heparin drip in case of OR needs. #12. CODE status: Patient CATHLEEN is her daughter who is present and living will is currently in place. Discussed CODE status at length including difference between FULL code, DNR-CCA and DNR-CC status. Following discussions about the differences in these status, requested DNR-CCA, no intubation status. She reported that she did make arrangements over the last month as well and has been proactive. Advanced Care Planning Face to Face Time: 16 minutes. Charges/Coding Visit Charges Inpatient E&M: 17657 Init Hosp L3 Procedures Hospitalists Procedures: 04204 Advncd Care Plan 30 Min
[2023-12-07] MEDS: Morphine 4 MG/ML Syringe IV (00:30)
[2023-12-07] MEDS: Metoclopramide 10 MG/2 ML Vial 5 MG IV ×4 (00:49→21:44)
[2023-12-07] MEDS: 0.9% Normal Saline (1000mL) 1,000 ML 100 ML IV ×3 (01:46→21:46)
[2023-12-07] MEDS: Pantoprazole Sodium 40 MG in 0.9% Normal Saline (100mL MB+) 100 ML 330 MG IV ×3 (01:52→23:04)
[2023-12-07 02:53] LABS: Absolute Lymphocyte Count 3.29 X10^3/uL (0.83-4.51); Absolute Neutrophil Count 5.5 X10^3/uL (2.0-7.7); Basophil# 0.05 X10^3/uL; Basophil% 0.5 % (0-1); Eosinophil# 0.07 X10^3/uL; Eosinophils% 0.7 % (0-5); Hemoglobin 8.8 g/dL (12.0-15.0); Lymphocyte # 3.29 X10^3/ul (0.83-4.51); Lymphocyte % 33.2 % (19-41); Mean Corp Hgb Conc 31.4 g/dL (32-36); Mean Corpuscular Volume 85.9 fL (81-99); Mean Platelet Vol. 10.2 fl (6.2-12.0); Monocyte# 0.95 X10^3/uL; Monocyte% 9.6 % (0-10); NRBC Flagged by Analyzer 0 % (0-5); Neutrophil # 5.53 X10^3/uL (2.7-7.7); Neutrophil % 55.8 % (47-70); Platelet Count 327 K/mm3 (150-450); RBC Distribution Width CV 16.5 % (11.6-14.6); Red Blood Count 3.26 M/mm3 (4.2-5.4); White Blood Count 9.9 K/mm3 (4.4-11.0)
[2023-12-07 03:08] LABS: Magnesium 1.9 mg/dL (1.6-2.6); Phosphorus 3.1 mg/dL (2.5-4.9)
[2023-12-07 03:11] LABS: ALB/GLOB Ratio 1.1 RATIO (0.9-2.4); AST(SGOT) 153 U/L (15-37); Alanine Aminotransfer ALT/SGPT 68 U/L (13-56); Albumin, Serum 3.2 g/dL (3.2-5.0); Alkaline Phosphatase 115 U/L (45-117); Anion Gap 8 (5-15); BUN 11 mg/dL (7-18); BUN/Creat Ratio 9.2 RATIO (10-20); Calcium,Total 8.6 mg/dL (8.5-10.1); Chloride 112 mmol/L (98-107); EST Glomerular Filtration Rate 47 mL/min (>60); Est Glom Filt Rate - Afr Amer 57 mL/min (>60); Estimated Creatinine Clearance 31.98 ml/min; Globulin 2.9 g/dL (2.2-4.2); Glucose 92 mg/dL (74-106); Potassium 3.7 mmol/L (3.5-5.1); Protein, Total 6.1 g/dL (6.4-8.2); Sodium Level 143 mmol/L (136-145)
[2023-12-07] MEDS: Ondansetron 4 MG/2 ML Vial IV ×2 (04:05→11:41)
[2023-12-07] MEDS: HYDROmorphone 0.5 MG/0.5 ML SYRINGE IV ×6 (04:06→21:45)
[2023-12-07 04:20] LABS: International Normalized Ratio 1.1; Prothrombin Time (Protime)PT. 13.9 SECONDS (11.7-14.9)
--- NOTE | 2023-12-07 05:55 | RAD_ITS ---
EXAM: XR ABDOMEN, 1 VIEW CLINICAL INDICATION: pSBO TECHNIQUE: Frontal supine view of the abdomen/pelvis. COMPARISON: 03/02/2023. FINDINGS: LOWER THORAX: No acute pathology. GASTROINTESTINAL TRACT: Mildly prominent small bowel loops in the midabdomen without signs of obstruction. ORGANS: Residual contrast in the urinary bladder. No organomegaly. No abnormal calcifications. BONES/JOINTS: No acute pathology. SOFT TISSUES: No acute pathology. RAD/Abdomen Single View (Portable) IMPRESSION: Mildly prominent small bowel loops in the midabdomen without signs of obstruction. Electronically Signed: Lobo Rushing MD at 6:56 EDT ,
[2023-12-07] MEDS: Acetaminophen 650 MG Suppository RC (06:22)
[2023-12-07] MEDS: Budesonide Respules 0.5 MG/2 ML AMPUL.NEB. INHALATION ×2 (07:25→19:56)
[2023-12-07] MEDS: LORazepam 2 MG/ML Syringe 1 MG IV ×2 (08:25→22:56)
--- NOTE | 2023-12-07 12:05 | EX.PCM.CON.S ---
Assessment & Plan Assessment/Plan (1) SBO (small bowel obstruction): PLAN: Patient is a 73-year-old female who was admitted yesterday for concern of partial small bowel obstruction versus ileus. She reportedly had numerous bouts of diarrhea prior to her presentation, however, she has not had any further bowel movements since her arrival to the hospital. Yet, she denies any nausea and confirms some improvement of her abdominal discomfort. She is completely benign with her abdominal exam and in my independent review of patient's CT imaging and follow-up KUB I do not find an obstructive bowel gas pattern. She admittedly has a dilated anastomosis, but I suspect this is a chronic finding. I attempted to prove her GI tract continuity with a small bowel follow-through, but patient is unable to ingest the contrast medium without vomiting immediately. I suspect this is unrelated to any obstructive physiology, but I am not sure it is worth trying to place a nasogastric tube for patient to circumvent her gag reflex. Instead, based on her reassuring exam and imaging we could consider a diet challenge. HPI Consult Data Date of Consult: 12/07/23 HPI Narrative Reason for Consultation: Concern for partial small bowel obstruction HPI Narrative: KAITLYN BAIRD, is a 73 F who presents to [facility] after approximately 5 days of progressive abdominal discomfort. Patient shares that her discomfort began 12/02/2023 following a dinner of deep fried walleye the night prior. She shares that there is been associated diarrhea and nausea. She denies any sick contacts. Patient's ER workup was notable for CT imaging of the abdomen pelvis was read by radiology is concerning for partial small bowel obstruction versus ileus with a dilated loop of small bowel adjacent patient's postoperative changes in the pelvis. Patient is known to me from a prior hospitalization for small bowel obstruction in March 2023. At that visit she passed a small bowel follow-through, technically speaking, but thereafter was unable to tolerate a diet and was transferred to [facility] in the event that she would require surgery. She confirms she was managed nonoperatively. 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 [facility] Medical History Anxiety and depression Chronic anemia CKD (chronic kidney disease), stage III Depression DVT (deep venous thrombosis) GERD (gastroesophageal reflux disease) History of small bowel obstruction History of venous thromboembolism HLD (hyperlipidemia) Hyperthyroidism Hypothyroidism Irritable bowel Scarlet fever Home Medications alprazolam 1 mg tablet (Xanax) 1 mg PO BID 12/11/22 [History Last Taken Unknown] bupropion HCl 150 mg 24 hr tablet, extended release 150 mg PO BID 12/11/22 [History Last Taken Unknown] esomeprazole magnesium 20 mg capsule,delayed release 20 mg PO DAILY 12/11/22 [History Last Taken Unknown] ezetimibe 10 mg tablet 10 mg PO DAILY 12/11/22 [History Last Taken Unknown] levothyroxine 50 mcg tablet 50 mcg PO DAILY 12/11/22 [History Last Taken Unknown] ondansetron HCl 4 mg tablet 4 mg PO Q6H PRN Nausea 12/11/22 [History Last Taken Unknown] zolpidem 10 mg tablet (Ambien) 10 mg PO QHS 12/11/22 [History Last Taken Unknown] docusate sodium 100 mg capsule 100 mg PO BID 03/31/23 [History Last Taken Unknown] budesonide 160 mcg-glycopyr 9 mcg-formot 4.8 mcg/actuation HFA inhaler (Breztri Aerosphere) 2 inh inhalation BID 12/06/23 [History Last Taken Unknown] buspirone 15 mg tablet 7.5 mg PO BID 12/06/23 [History Last Taken Unknown] polyethylene glycol 3350 17 gram/dose oral powder (Miralax) 17 g PO BID 12/06/23 [History Last Taken Unknown] ropinirole 0.5 mg tablet 0.5 mg PO BID 12/06/23 [History Last Taken Unknown] warfarin 5 mg tablet 5 mg PO DAILY 12/06/23 [History Last Taken Unknown] Allergy/AdvReac Type Severity Reaction Status Date / Time cefdinir [From Omnicef] Allergy Hives Verified 03/31/23 22:24 codeine Allergy NEEDS Verified 03/31/23 22:24 FOLLOW-UP latex Allergy Anaphylaxis Verified 03/31/23 22:24 prochlorperazine Allergy NEEDS Verified 03/31/23 22:24 [From Compazine] FOLLOW-UP shellfish derived Allergy Anaphylaxis Verified 03/31/23 22:24 levofloxacin [From Levaquin] AdvReac Vomiting Verified 03/31/23 22:24 [id number] Reductase AdvReac NEEDS Verified 03/31/23 22:24 Inhibitor FOLLOW-UP Family History (Updated 03/16/23 @ 06:[address] Jessica Thomas MD) Mother Heart disease COPD (chronic obstructive pulmonary disease) Father Heart disease Hypertension CAD (coronary artery disease) Myocardial infarction Surgical History History of appendectomy History of cholecystectomy History of colon surgery History of total abdominal hysterectomy Social History (Updated 03/16/23 @ 06:[address] Jessica Thomas MD) household members: none Smoking Status: Never smoker alcohol intake: never substance use type: does not use Physical Exam Const alert, oriented x3 and no apparent distress General Appearance: cooperative Resp normal respiratory effort GI GI Narrative: Nondistended, soft, chronic scars of abdomen without evidence of hernia, nontender to palpation x 4 quadrants. Lab / Micro Data 12/07/23 02:30 12/07/23 02:30 Labs: Laboratory Results - last 24 hr 12/06/23 16:40: WBC 7.4, RBC 3.78 L, Hgb 10.1 L, Hct 32.2 L, MCV 85.2, MCH 26.7 L, MCHC 31.4 L, RDW Std Deviation 51.6 H, RDW Coeff of Neno 16.6 H, Plt Count 281, MPV 11.1, Immature Gran % (Auto) 0.500, Neut % (Auto) 44.7 L, Lymph % (Auto) 44.8 H, [place] % (Auto) 8.4, Eos % (Auto) 0.8, Baso % (Auto) 0.8, Absolute Neuts (auto) 3.3, Absolute Lymphs (auto) 3.30, Nucleated RBC % 0, Platelet Estimate ADEQUATE, RBC Morphology N CHROM, Anisocytosis RARE, Ovalocytes RARE, Sodium 141, Potassium 4.7, Chloride 113 H, Carbon Dioxide 22.0, Anion Gap 6, BUN 12, Creatinine 1.11 H, Estim Creat Clear Calc 34.57, Est GFR (MDRD) Af Amer 62, Est GFR (MDRD) Non-Af 51 L, BUN/Creatinine Ratio 10.8, Glucose 100, Calcium 9.5, Total Bilirubin 0.50, AST 43 H, ALT 22, Alkaline Phosphatase 78, Total Protein 7.4, Albumin 3.5, Globulin 3.9, Albumin/Globulin Ratio 0.9, Lipase 36 12/06/23 17:00: Lactic Acid 1.2 12/07/23 02:30: WBC 9.9, RBC 3.26 L, Hgb 8.8 L, Hct 28.0 L, MCV 85.9, MCH 27.0, MCHC 31.4 L, RDW Std Deviation 52.0 H, RDW Coeff of Neno 16.5 H, Plt Count 327, MPV 10.2, Immature Gran % (Auto) 0.200, Neut % (Auto) 55.8, Lymph % (Auto) 33.2, [place] % (Auto) 9.6, Eos % (Auto) 0.7, Baso % (Auto) 0.5, Absolute Neuts (auto) 5.5, Absolute Lymphs (auto) 3.29, Nucleated RBC % 0, PT 13.9, INR 1.1, Sodium 143, Potassium 3.7, Chloride 112 H, Carbon Dioxide 23.0, Anion Gap 8, BUN 11, Creatinine 1.20 H, Estim Creat Clear Calc 31.98, Est GFR (MDRD) Af Amer 57 L, Est GFR (MDRD) Non-Af 47 L, BUN/Creatinine Ratio 9.2 L, Glucose 92, Calcium 8.6, Phosphorus 3.1, Magnesium 1.9, Total Bilirubin 0.90, AST 153 H, ALT 68 H, Alkaline Phosphatase 115, Total Protein 6.1 L, Albumin 3.2, Globulin 2.9, Albumin/Globulin Ratio 1.1 Micro: Microbiology 12/07/23 05:45 Mucosa - Nasopharyngeal Respiratory Panel (PCR) - Final Imaging Radiology Impression Abdomen/Pelvis CT 12/06/23 16:11 IMPRESSION: Postoperative change. Small bowel distention with partial obstruction versus ileus. Electronically Signed: Jose Rodriguez MD at 18:16 EDT , KUB X-Ray 12/07/23 05:55 IMPRESSION: Mildly prominent small bowel loops in the midabdomen without signs of obstruction. Electronically Signed: Lobo Rushing MD at 6:56 EDT ,
--- NOTE | 2023-12-07 15:49 | NURSING ---
I spoke with [facility] transfer line and they stated the pt is on the wait list however they do not have a bed at this time due to their high census.
[2023-12-07] MEDS: proCHLORPERazine 10 MG/2 ML Vial 5 MG IV (17:13)
[2023-12-08] VITALS (7 sets, daily range): BP systolic 133–149; BP diastolic 67–76; PULSE 75–92; RESP 17–20; TEMP 36.2–36.9; O2SAT 94–100; BMI 22.8
[2023-12-08] MEDS: HYDROmorphone 0.5 MG/0.5 ML SYRINGE IV ×4 (03:31→22:13)
[2023-12-08] MEDS: Metoclopramide 10 MG/2 ML Vial 5 MG IV ×2 (03:45→10:32)
[2023-12-08 05:25] LABS: Absolute Lymphocyte Count 2.13 X10^3/uL (0.83-4.51); Absolute Neutrophil Count 3.3 X10^3/uL (2.0-7.7); Basophil# 0.05 X10^3/uL; Basophil% 0.8 % (0-1); Eosinophil# 0.15 X10^3/uL; Eosinophils% 2.4 % (0-5); Hematocrit 25.6 % (37-47); Hemoglobin 7.9 g/dL (12.0-15.0); Lymphocyte # 2.13 X10^3/ul (0.83-4.51); Lymphocyte % 34.5 % (19-41); Mean Corp Hgb Conc 30.9 g/dL (32-36); Mean Corpuscular Hgb 26.7 pg (27.0-32.0); Mean Corpuscular Volume 86.5 fL (81-99); Mean Platelet Vol. 10.4 fl (6.2-12.0); Monocyte# 0.53 X10^3/uL; Monocyte% 8.6 % (0-10); NRBC Flagged by Analyzer 0 % (0-5); Neutrophil # 3.29 X10^3/uL (2.7-7.7); Neutrophil % 53.4 % (47-70); Platelet Count 256 K/mm3 (150-450); RBC Distribution Width CV 16.4 % (11.6-14.6); RBC Distribution Width SD 52.1 fl (35.1-43.9); Red Blood Count 2.96 M/mm3 (4.2-5.4); White Blood Count 6.2 K/mm3 (4.4-11.0)
[2023-12-08 05:44] LABS: Anion Gap 8 (5-15); BUN 9 mg/dL (7-18); BUN/Creat Ratio 11.2 RATIO (10-20); Calcium,Total 8.1 mg/dL (8.5-10.1); Chloride 113 mmol/L (98-107); EST Glomerular Filtration Rate 75 mL/min (>60); Est Glom Filt Rate - Afr Amer 90 mL/min (>60); Estimated Creatinine Clearance 47.97 ml/min; Glucose 76 mg/dL (74-106); Potassium 3.7 mmol/L (3.5-5.1); Sodium Level 140 mmol/L (136-145)
[2023-12-08] MEDS: Budesonide Respules 0.5 MG/2 ML AMPUL.NEB. INHALATION (07:38)
[2023-12-08] MEDS: 0.9% Normal Saline (1000mL) 1,000 ML 100 ML IV ×2 (08:20→18:46)
[2023-12-08] MEDS: Pantoprazole Sodium 40 MG in 0.9% Normal Saline (100mL MB+) 100 ML 330 MG IV ×2 (09:12→22:14)
--- NOTE | 2023-12-08 09:14 | PN.SURG_ITS ---
Subjective Subjective Patient still complains of abdominal pain mostly in left lower quadrant where she points, also nausea. Did attempt to get a small bowel follow-through yesterday however patient would just take a sip of the contrast and throw it back up. Patient denies any further vomiting overnight and states she has had small amount of flatus, is too nauseated for really even sips or chips. But Objective Data Objective Data Vital Signs: Vital Signs Temp Pulse Resp BP Pulse Ox O2 Del Method 98.4 F 92 18 133/67 H 98 Room Air 12/08/23 03:00 12/08/23 03:00 12/08/23 03:00 12/08/23 03:00 12/08/23 03:00 12/08/23 08:41 Oxygen Delivery Method Room Air Weight: 121 lb 0.54 oz Body Mass Index (BMI) 22.8 Intake & Output: Intake and Output for Last 24 Hours 12/06/23 12/07/23 12/08/23 23:59 23:59 23:59 Intake Total 1000 / 1000 2678.33 / 2918.33 1240 / 1240 Balance 1000 / 1000 2678.33 / 2918.33 1240 / 1240 Lab / Micro Data 12/08/23 04:53 12/08/23 04:53 Labs: Laboratory Results - last 24 hr 12/08/23 04:53: WBC 6.2, RBC 2.96 L, Hgb 7.9 L, Hct 25.6 L, MCV 86.5, MCH 26.7 L , MCHC 30.9 L, RDW Std Deviation 52.1 H, RDW Coeff of Neno 16.4 H, Plt Count 256, MPV 10.4, Immature Gran % (Auto) 0.300, Neut % (Auto) 53.4, Lymph % (Auto) 34.5, [place] % (Auto) 8.6, Eos % (Auto) 2.4, Baso % (Auto) 0.8, Absolute Neuts (auto) 3.3, Absolute Lymphs (auto) 2.13, Nucleated RBC % 0, Sodium 140, Potassium 3.7, Chloride 113 H, Carbon Dioxide 19.0 L, Anion Gap 8, BUN 9, Creatinine 0.80, Estim Creat Clear Calc 47.97, Est GFR (MDRD) Af Amer 90, Est GFR (MDRD) Non-Af 75, BUN/Creatinine Ratio 11.2, Glucose 76, Calcium 8.1 L Micro: Microbiology 12/08/23 07:00 Stool Clostridioides difficile (PCR) - Final 12/08/23 07:00 Stool Stool Occult Blood (EBONY) - Final Occult Blood Positive 12/07/23 14:30 Stool Enteric Bacteriology - Final 12/07/23 05:45 Mucosa - Nasopharyngeal Respiratory Panel (PCR) - Final Physical Exam Const oriented x3 and no apparent distress Resp normal respiratory effort Cardio regular rate GI soft to palpation GI Narrative: Minimal distention Palpation: tender LLQ (No peritoneal signs) Assessment & Plan Assessment/Plan (1) SBO (small bowel obstruction): PLAN: Patient is a 73-year-old female who was admitted yesterday for concern of partial small bowel obstruction versus ileus. She reportedly had numerous bouts of diarrhea prior to her presentation, however, she has not had any further bowel movements since her arrival to the hospital. PLAN: Plan Attempting a diet challenge with just sips and chips, but patient is still having nausea with just sips and chips. Attempted small bowel follow-through was unable to be done as patient would take a sip of the contrast and then vomit. Patient has been accepted to [facility] awaiting bed as she does have short gut due to previous small bowel resection. Ana Laura Lennon M.D. Pager: [phone] [facility] [address] [place] [address], [facility], [address] [place] [address] Office: [phone] Charges/Coding Visit Charges Inpatient E&M: 11686 Subs Hosp L2
[2023-12-08] MEDS: Ondansetron 4 MG/2 ML Vial IV ×2 (09:17→16:42)
--- NOTE | 2023-12-08 10:25 | PCM.PN.HOSP ---
Subjective Subjective Continues to be nauseated with intermittent abdominal pain Objective Data Objective Data Vital Signs: Vital Signs Temp Pulse Resp BP Pulse Ox O2 Del Method 97.6 F L 82 18 142/68 H 98 Room Air 12/08/23 09:29 12/08/23 09:29 12/08/23 09:29 12/08/23 09:29 12/08/23 09:29 12/08/23 09:29 Oxygen Delivery Method Room Air Weight: 121 lb 0.54 oz Body Mass Index (BMI) 22.8 Intake & Output: Intake and Output for Last 24 Hours 12/07/23 12/08/23 12/09/23 03:59 03:59 03:59 Intake Total 1508.33 / 1508.33 2410 / 2410 1000 / 1000 Balance 1508.33 / 1508.33 2410 / 2410 1000 / 1000 Lab / Micro Data 12/08/23 04:53 12/08/23 04:53 Labs: Laboratory Results - last 24 hr 12/08/23 04:53: WBC 6.2, RBC 2.96 L, Hgb 7.9 L, Hct 25.6 L, MCV 86.5, MCH 26.7 L, MCHC 30.9 L, RDW Std Deviation 52.1 H, RDW Coeff of Neno 16.4 H, Plt Count 256, MPV 10.4, Immature Gran % (Auto) 0.300, Neut % (Auto) 53.4, Lymph % (Auto) 34.5, [place] % (Auto) 8.6, Eos % (Auto) 2.4, Baso % (Auto) 0.8, Absolute Neuts (auto) 3.3, Absolute Lymphs (auto) 2.13, Nucleated RBC % 0, Sodium 140, Potassium 3.7, Chloride 113 H, Carbon Dioxide 19.0 L, Anion Gap 8, BUN 9, Creatinine 0.80, Estim Creat Clear Calc 47.97, Est GFR (MDRD) Af Amer 90, Est GFR (MDRD) Non-Af 75, BUN/Creatinine Ratio 11.2, Glucose 76, Calcium 8.1 L Micro: Microbiology 12/08/23 07:00 Stool Clostridioides difficile (PCR) - Final 12/08/23 07:00 Stool Stool Occult Blood (EBONY) - Final Occult Blood Positive 12/07/23 14:30 Stool Enteric Bacteriology - Final 12/07/23 05:45 Mucosa - Nasopharyngeal Respiratory Panel (PCR) - Final Physical Exam Narrative General: Alert, Oriented x3, Cooperative, No apparent distress HEENT: Atraumatic, PERRLA, EOMI, Normocephalic Oral: Moist Mucosa Neck: Supple, No JVD Lungs: Diminished, Normal air movement, No rhonchi, No wheeze, No rales Cardiovascular: Regular rate, Regular Rhythm, Normal S1, Normal S2, No murmurs Abdomen: Soft, minimally tender, Non-Distended, No Hepato-splenomegaly Extremities: No edema, Capillary Refill Less than 3 Seconds Skin: No rashes, No breakdown Musculoskeletal: No Tenderness to Palpation of Joints or Extremities Neurological: No focal neurological deficits, Motor Exam 5/5 strength throughout, Sensory exam intact to light touch and pain Psych/Mental Status: Anxious Assessment & Plan Assessment/Plan (1) SBO (small bowel obstruction): PLAN: Plan 1. Intractable abdominal pain with nausea and vomiting secondary to a partial small bowel obstruction/normocytic normochromic anemia/GERD ? She has had a history of abdominal surgery with removal of 40% of her small bowel she has had multiple episodes of small bowel obstructions with requiring transfer to a higher level of care ? Pending transfer to [facility] ? Will recheck H&H this afternoon ? Continue with PPI ? Appreciate general surgery's assistance ? Attempted small bowel follow-through yesterday however she had emesis after every sip however still does not want an NG tube ? Continue with antinausea medications ? Will allow her sips and chips 2. Anxiety/depression/restless legs ? Stabilized ? Continue with her home medications as able 3. Hypothyroidism ? Stable ? Will resume Synthroid when able 4. Hyperlipidemia ? Stable ? Hold steady until able to take p.o. 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 Given her dropping anemia we will continue to hold her Coumadin DVT: SCDs Charges/Coding Visit Charges Inpatient E&M: 17500 Subs Hosp L2
[2023-12-08] MEDS: LORazepam 2 MG/ML Syringe 1 MG IV ×2 (10:33→22:14)
[2023-12-08 14:11] LABS: Hemoglobin 8.1 g/dL (12.0-15.0)
[2023-12-09] MEDS: Ondansetron 4 MG/2 ML Vial IV (00:55)
[2023-12-09] MEDS: HYDROmorphone 0.5 MG/0.5 ML SYRINGE IV ×4 (01:34→20:18)
[2023-12-09] MEDS: Metoclopramide 10 MG/2 ML Vial 5 MG IV ×3 (01:35→20:17)
[2023-12-09 03:00] VITALS: BP 151/68; PULSE 76; RESP 18; TEMP 36.6; O2SAT 99
[2023-12-09 06:00] VITALS: BMI 22.8
[2023-12-09 07:44] VITALS: PULSE 85; RESP 20; O2SAT 95
[2023-12-09] MEDS: Budesonide Respules 0.5 MG/2 ML AMPUL.NEB. INHALATION (07:44)
[2023-12-09 09:00] VITALS: BP 148/67; PULSE 67; RESP 17; TEMP 36.4; O2SAT 98
--- NOTE | 2023-12-09 09:33 | PCM.PN.SRG ---
Subjective Subjective Pt had flatus and liquid stool per patient. Patient still complains of abdominal pain worse than her normal abdominal pain. Patient still has nausea but she does states she is chronically nauseated. Patient states her symptoms chips have been staying down. Objective Data Objective Data Vital Signs: Vital Signs Temp Pulse Resp BP Pulse Ox O2 Del Method 97.8 F 76 18 151/68 H 99 Room Air 12/09/23 03:00 12/09/23 03:00 12/09/23 03:00 12/09/23 03:00 12/09/23 03:00 12/09/23 03:00 Oxygen Delivery Method Room Air Weight: 120 lb 9.486 oz Body Mass Index (BMI) 22.8 Intake & Output: Intake and Output for Last 24 Hours 12/07/23 12/08/23 12/09/23 23:59 23:59 23:59 Intake Total 2678.33 / 2918.33 2460 / 2460 1000 / 1000 Output Total Balance 2678.33 / 2918.33 2459 / 2459 1000 / 1000 Lab / Micro Data 12/08/23 14:00 12/08/23 04:53 Labs: Laboratory Results - last 24 hr 12/08/23 14:00: Hgb 8.1 L, Hct 26.0 L Micro: Microbiology 12/08/23 07:00 Stool Clostridioides difficile (PCR) - Final 12/08/23 07:00 Stool Stool Occult Blood (EBONY) - Final Occult Blood Positive 12/07/23 14:30 Stool Enteric Bacteriology - Final 12/07/23 05:45 Mucosa - Nasopharyngeal Respiratory Panel (PCR) - Final Physical Exam Const oriented x3 and no apparent distress Resp normal respiratory effort Cardio regular rate GI soft to palpation GI Narrative: Minimal distention Palpation: tender LLQ (No peritoneal signs) Assessment & Plan Assessment/Plan (1) SBO (small bowel obstruction): PLAN: Patient is a 73-year-old female who was admitted yesterday for concern of partial small bowel obstruction versus ileus. PLAN: Plan Patient is agreeable to try clears as she was able to tolerate substances chips yesterday and did have flatus and bowel movement. Will also check KUB. Patient has been accepted to 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 Ana Laura Lennon M.D. Pager: [phone] [facility] [address] [place] [address], [facility], [address] [place] [address] Office: [phone] Charges/Coding Visit Charges Inpatient E&M: 14590 Subs Hosp L2
--- NOTE | 2023-12-09 09:50 | RAD_ITS ---
EXAM: XR ABDOMEN, 1 VIEW CLINICAL INDICATION: sbo TECHNIQUE: Frontal supine view of the abdomen/pelvis. COMPARISON: 12/07/2023 FINDINGS: GASTROINTESTINAL TRACT: Contrast throughout the colonic distribution. No significantly distended loops of bowel. ORGANS: Normal as visualized. No organomegaly. No abnormal calcifications. BONES/JOINTS: Degenerative changes of the spine and hips with apex right curvature of the spine. SOFT TISSUES: No acute pathology. RAD/Abdomen Single View (Portable) IMPRESSION: 1. Contrast throughout the colonic distribution. No significantly distended loops of bowel. No evidence of small bowel obstruction. 2. Degenerative changes of the spine and hips with apex right curvature of the spine. Electronically Signed: Thien Robert DO at 10:36 EDT ,
[2023-12-09 12:28] LABS: Absolute Lymphocyte Count 2.14 X10^3/uL (0.83-4.51); Absolute Neutrophil Count 4.5 X10^3/uL (2.0-7.7); Basophil# 0.06 X10^3/uL; Basophil% 0.8 % (0-1); Eosinophil# 0.21 X10^3/uL; Eosinophils% 2.8 % (0-5); Hematocrit 25.8 % (37-47); Hemoglobin 8.3 g/dL (12.0-15.0); Lymphocyte # 2.14 X10^3/ul (0.83-4.51); Lymphocyte % 28.5 % (19-41); Mean Corp Hgb Conc 32.2 g/dL (32-36); Mean Corpuscular Hgb 27.7 pg (27.0-32.0); Mean Platelet Vol. 10.1 fl (6.2-12.0); NRBC Flagged by Analyzer 0 % (0-5); Neutrophil # 4.45 X10^3/uL (2.7-7.7); Neutrophil % 59.4 % (47-70); Platelet Count 269 K/mm3 (150-450); RBC Distribution Width CV 16.1 % (11.6-14.6); RBC Distribution Width SD 50.3 fl (35.1-43.9); White Blood Count 7.5 K/mm3 (4.4-11.0)
[2023-12-09 12:45] LABS: ALB/GLOB Ratio 0.9 RATIO (0.9-2.4); AST(SGOT) 54 U/L (15-37); Alanine Aminotransfer ALT/SGPT 77 U/L (13-56); Albumin, Serum 2.8 g/dL (3.2-5.0); Alkaline Phosphatase 139 U/L (45-117); Anion Gap 11 (5-15); BUN 9 mg/dL (7-18); BUN/Creat Ratio 9.4 RATIO (10-20); Calcium,Total 8.2 mg/dL (8.5-10.1); Chloride 109 mmol/L (98-107); Creatinine, Serum 0.96 mg/dL (0.55-1.02); EST Glomerular Filtration Rate 61 mL/min (>60); Est Glom Filt Rate - Afr Amer 74 mL/min (>60); Estimated Creatinine Clearance 39.97 ml/min; Globulin 3.2 g/dL (2.2-4.2); Glucose 104 mg/dL (74-106); Potassium 3.6 mmol/L (3.5-5.1); Sodium Level 137 mmol/L (136-145)
[2023-12-09] MEDS: Pantoprazole Sodium 40 MG in 0.9% Normal Saline (100mL MB+) 100 ML 330 MG IV ×2 (12:52→22:03)
[2023-12-09] MEDS: 0.9% Normal Saline (1000mL) 1,000 ML 100 ML IV ×2 (12:54→22:06)
--- NOTE | 2023-12-09 14:18 | PN.HOSP_ITS ---
Subjective Subjective Feels better today, had a bowel movement and had flatus Objective Data Objective Data Vital Signs: Vital Signs Temp Pulse Resp BP Pulse Ox O2 Del Method 97.6 F L 67 17 148/67 H 98 Room Air 12/09/23 09:00 12/09/23 09:00 12/09/23 09:00 12/09/23 09:00 12/09/23 09:00 12/09/23 10:00 Oxygen Delivery Method Room Air Weight: 120 lb 9.486 oz Body Mass Index (BMI) 22.8 Intake & Output: Intake and Output for Last 24 Hours 12/08/23 12/09/23 12/10/23 03:59 03:59 03:59 Intake Total 2410 / 2410 2220 / 2220 1000 / 1000 Output Total Balance 2410 / 2410 2219 / 2219 1000 / 1000 Lab / Micro Data 12/09/23 12:00 12/09/23 12:00 Labs: Laboratory Results - last 24 hr 12/09/23 12:00: WBC 7.5, RBC 3.00 L, Hgb 8.3 L, Hct 25.8 L, MCV 86.0, MCH 27.7, MCHC 32.2, RDW Std Deviation 50.3 H, RDW Coeff of Neno 16.1 H, Plt Count 269, MPV 10.1, Immature Gran % (Auto) 0.500, Neut % (Auto) 59.4, Lymph % (Auto) 28.5, [place] % (Auto) 8.0, Eos % (Auto) 2.8, Baso % (Auto) 0.8, Absolute Neuts (auto) 4.5, Absolute Lymphs (auto) 2.14, Nucleated RBC % 0, Sodium 137, Potassium 3.6, Chloride 109 H, Carbon Dioxide 17.0 L, Anion Gap 11, BUN 9, Creatinine 0.96, Estim Creat Clear Calc 39.97, Est GFR (MDRD) Af Amer 74, Est GFR (MDRD) Non-Af 61, BUN/Creatinine Ratio 9.4 L, Glucose 104, Calcium 8.2 L, Total Bilirubin 0.70, AST 54 H, ALT 77 H, Alkaline Phosphatase 139 H, Total Protein 6.0 L, Albumin 2.8 L, Globulin 3.2, Albumin/Globulin Ratio 0.9 Micro: Microbiology 12/08/23 07:00 Stool Clostridioides difficile (PCR) - Final 12/08/23 07:00 Stool Stool Occult Blood (EBONY) - Final Occult Blood Positive 12/07/23 14:30 Stool Enteric Bacteriology - Final 12/07/23 05:45 Mucosa - Nasopharyngeal Respiratory Panel (PCR) - Final Radiography Diagnostic Testing: Radiology Impression KUB X-Ray 12/09/23 09:50 IMPRESSION: 1. Contrast throughout the colonic distribution. No significantly distended loops of bowel. No evidence of small bowel obstruction. 2. Degenerative changes of the spine and hips with apex right curvature of the spine. Electronically Signed: Thien Robert, at 10:36 EDT , Physical Exam Narrative General: Alert, Oriented x3, Cooperative, No apparent distress HEENT: Atraumatic, PERRLA, EOMI, Normocephalic Oral: Moist Mucosa Neck: Supple, No JVD Lungs: Diminished, Normal air movement, No rhonchi, No wheeze, No rales Cardiovascular: Regular rate, Regular Rhythm, Normal S1, Normal S2, No murmurs Abdomen: Soft, minimally tender, Non-Distended, No Hepato-splenomegaly Extremities: No edema, Capillary Refill Less than 3 Seconds Skin: No rashes, No breakdown Musculoskeletal: No Tenderness to Palpation of Joints or Extremities Neurological: No focal neurological deficits, Motor Exam 5/5 strength throughout, Sensory exam intact to light touch and pain Psych/Mental Status: Anxious Assessment & Plan Assessment/Plan (1) SBO (small bowel obstruction): PLAN: Plan 1. Intractable abdominal pain with nausea and vomiting secondary to a partial small bowel obstruction/normocytic normochromic anemia/GERD ? She has had a history of abdominal surgery with removal of 40% of her small bowel she has had multiple episodes of small bowel obstructions with requiring transfer to a higher level of care ? Pending transfer to [facility], though she may be discharged prior to acceptance if she is able to tolerate a clear liquid diet today and a full liquid diet tomorrow ? Continue with PPI ? Appreciate general surgery's assistance ? Attempted small bowel follow-through yesterday however she had emesis after every sip however still does not want an NG tube ? Continue with antinausea medications 2. Anxiety/depression/restless legs ? Stabilized ? Can restart on discharge 3. Hypothyroidism ? Stable ? Can restart on discharge 4. Hyperlipidemia ? Stable ? Can restart on discharge 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 Given her dropping anemia we will continue to hold her Coumadin DVT: SCDs Charges/Coding Visit Charges Inpatient E&M: 29078 Subs Hosp L2
[2023-12-09] MEDS: LORazepam 2 MG/ML Syringe 1 MG IV ×2 (14:43→22:04)
[2023-12-09 15:16] VITALS: BP 140/66; PULSE 73; RESP 16; TEMP 36.8; O2SAT 100
[2023-12-09 15:18] VITALS: BP 140/66; PULSE 73; RESP 16; TEMP 36.8; O2SAT 100
[2023-12-09 19:59] VITALS: BP 126/63; PULSE 72; RESP 16; TEMP 36.9; O2SAT 99
[2023-12-10] VITALS (7 sets, daily range): BP systolic 135–141; BP diastolic 57–73; PULSE 67–82; RESP 16–18; TEMP 36.5–36.9; O2SAT 95–100; BMI 22.4
[2023-12-10] MEDS: HYDROmorphone 0.5 MG/0.5 ML SYRINGE IV ×4 (04:25→20:29)
[2023-12-10] MEDS: Metoclopramide 10 MG/2 ML Vial 5 MG IV ×3 (04:26→21:20)
[2023-12-10] MEDS: Budesonide Respules 0.5 MG/2 ML AMPUL.NEB. INHALATION ×2 (07:03→19:47)
--- NOTE | 2023-12-10 07:44 | NURSING ---
I spoke to [facility] transfer line they stated they do not have a bed this time.
[2023-12-10] MEDS: Ondansetron 4 MG/2 ML Vial IV ×2 (07:55→16:33)
[2023-12-10] MEDS: 0.9% Normal Saline (1000mL) 1,000 ML 100 ML IV ×2 (07:55→18:16)
[2023-12-10] MEDS: LORazepam 2 MG/ML Syringe 1 MG IV ×2 (09:31→21:20)
[2023-12-10] MEDS: Pantoprazole Sodium 40 MG in 0.9% Normal Saline (100mL MB+) 100 ML 330 MG IV ×2 (09:31→21:20)
--- NOTE | 2023-12-10 10:33 | PN.HOSP_ITS ---
Subjective Subjective Doing well continue passing flatus. Tolerating clear liquids will advance to full Objective Data Objective Data Vital Signs: Vital Signs Temp Pulse Resp BP Pulse Ox O2 Del Method 98.2 F 67 18 137/73 H 95 Room Air 12/10/23 07:50 12/10/23 07:50 12/10/23 07:50 12/10/23 07:50 12/10/23 07:50 12/10/23 07:50 Oxygen Delivery Method Room Air Weight: 119 lb 0.794 oz Body Mass Index (BMI) 22.4 Intake & Output: Intake and Output for Last 24 Hours 12/09/23 12/10/23 12/11/23 03:59 03:59 03:59 Intake Total 2220 / 2220 3320 / 3320 1351.67 / 1351.67 Output Total Balance 2219 / 2219 3320 / 3320 1351.67 / 1351.67 Lab / Micro Data 12/09/23 12:00 12/09/23 12:00 Labs: Laboratory Results - last 24 hr 12/09/23 12:00: WBC 7.5, RBC 3.00 L, Hgb 8.3 L, Hct 25.8 L, MCV 86.0, MCH 27.7, MCHC 32.2, RDW Std Deviation 50.3 H, RDW Coeff of Neno 16.1 H, Plt Count 269, MPV 10.1, Immature Gran % (Auto) 0.500, Neut % (Auto) 59.4, Lymph % (Auto) 28.5, [place] % (Auto) 8.0, Eos % (Auto) 2.8, Baso % (Auto) 0.8, Absolute Neuts (auto) 4.5, Absolute Lymphs (auto) 2.14, Nucleated RBC % 0, Sodium 137, Potassium 3.6, Chloride 109 H, Carbon Dioxide 17.0 L, Anion Gap 11, BUN 9, Creatinine 0.96, Estim Creat Clear Calc 39.97, Est GFR (MDRD) Af Amer 74, Est GFR (MDRD) Non-Af 61, BUN/Creatinine Ratio 9.4 L, Glucose 104, Calcium 8.2 L, Total Bilirubin 0.70, AST 54 H, ALT 77 H, Alkaline Phosphatase 139 H, Total Protein 6.0 L, Albumin 2.8 L, Globulin 3.2, Albumin/Globulin Ratio 0.9 Micro: Microbiology 12/08/23 07:00 Stool Clostridioides difficile (PCR) - Final 12/08/23 07:00 Stool Stool Occult Blood (EBONY) - Final Occult Blood Positive 12/07/23 14:30 Stool Enteric Bacteriology - Final 12/07/23 05:45 Mucosa - Nasopharyngeal Respiratory Panel (PCR) - Final Radiography Diagnostic Testing: Radiology Impression KUB X-Ray 12/09/23 09:50 IMPRESSION: 1. Contrast throughout the colonic distribution. No significantly distended loops of bowel. No evidence of small bowel obstruction. 2. Degenerative changes of the spine and hips with apex right curvature of the spine. Electronically Signed: Thien Robert DO at 10:36 EDT , Physical Exam Narrative General: Alert, Oriented x3, Cooperative, No apparent distress HEENT: Atraumatic, PERRLA, EOMI, Normocephalic Oral: Moist Mucosa Neck: Supple, No JVD Lungs: Diminished, Normal air movement, No rhonchi, No wheeze, No rales Cardiovascular: Regular rate, Regular Rhythm, Normal S1, Normal S2, No murmurs Abdomen: Soft, minimally tender, Non-Distended, No Hepato-splenomegaly Extremities: No edema, Capillary Refill Less than 3 Seconds Skin: No rashes, No breakdown Musculoskeletal: No Tenderness to Palpation of Joints or Extremities Neurological: No focal neurological deficits, Motor Exam 5/5 strength th roughout, Sensory exam intact to light touch and pain Psych/Mental Status: Anxious Assessment & Plan Assessment/Plan (1) SBO (small bowel obstruction): PLAN: Plan 1. Intractable abdominal pain with nausea and vomiting secondary to a partial small bowel obstruction/normocytic normochromic anemia/GERD ? She has had a history of abdominal surgery with removal of 40% of her small bowel she has had multiple episodes of small bowel obstructions with requiring transfer to a higher level of care ? Will discuss with surgery if she tolerates a full liquid diet if she can be discharged today or if they would like to wait another day depending on how she responds ? Continue with PPI ? Appreciate general surgery's assistance ? Continue with antinausea medications 2. Anxiety/depression/restless legs ? Stabilized ? Can restart on discharge 3. Hypothyroidism ? Stable ? Can restart on discharge 4. Hyperlipidemia ? Stable ? Can restart on discharge 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 Given her dropping anemia we will continue to hold her Coumadin DVT: SCDs Charges/Coding Visit Charges Inpatient E&M: 07039 Subs Hosp L2
--- NOTE | 2023-12-10 12:55 | CASEMGMT ---
RN CM Face to Face with patient for initial transition planning/care coordination assessment. RN CM introduced self and role at [facility]. Patient lying in bed, alert and oriented. Patient willing to participate in assessment and is able to answer all questions appropriately. Care providers, pharmacy, and demographics verified. PCP: Sergio Specialists: none Preferred Pharmacy: [facility] Insurance: [employer] [facility] Prescription Benefit: yes Living Will/HPOA: yes, daughter Rosario Kennedy LNOK: daughter, niece Living Arrangements: Patient lives with daughter in a single story duplex with 4 steps and railing to enter the home. Patient is independent at home. Transportation: self, daughter DME/HHC: Patient has cane and grab bars at home. Patient states she has access to a walker. Patient has been to [facility] in the past. Patient has had HHC in the past but could not recall agency Patient wishes to discharge home, denies need for home health at this time. Patient states he has no further needs or concerns at this time. CM to follow for discharge planning needs that may arise. Disposition Plan: Patient to discharge home with family support and follow-up plans in place. Delia MACDONALD, RN, CM
[2023-12-10 13:11] LABS: Ferritin 15 ng/mL (8-252); Iron 28 ug/dL (50-170); Iron Binding Capacity,Total 350 ug/dL (250-450)
[2023-12-10 13:18] LABS: Vitamin B12 741 pg/mL (211-911)
[2023-12-10] MEDS: Sodium Ferric Gluconat/Sucrose 250 MG in 0.9% Normal Saline (250mL Bag) 250 ML 135 MG IV (14:01)
--- NOTE | 2023-12-10 15:38 | PCM.PN.SRG ---
Subjective Subjective Patient evaluated around lunch time. Patient was resting comfortably in bed. She notes feeling unwell at times when drinking clear liquids and then states that clear liquids are going well. She is passing flatus and having bowel movements. She denies any abdominal pain. Objective Data Objective Data Vital Signs: Vital Signs Temp Pulse Resp BP Pulse Ox O2 Del Method 97.7 F L 71 16 135/57 H 100 Room Air 12/10/23 14:55 12/10/23 14:55 12/10/23 14:55 12/10/23 14:55 12/10/23 14:55 12/10/23 14:55 Oxygen Delivery Method Room Air Weight: 119 lb 0.794 oz Body Mass Index (BMI) 22.4 Intake & Output: Intake and Output for Last 24 Hours 12/08/23 12/09/23 12/10/23 23:59 23:59 23:59 Intake Total 2460 / 2460 2920 / 2920 2168.34 / 2168.34 Output Total Balance 2459 / 2459 2920 / 2920 2168.34 / 2168.34 Lab / Micro Data 12/09/23 12:00 12/09/23 12:00 Labs: Laboratory Results - last 24 hr 12/10/23 12:24: Iron 28 L, TIBC 350, Iron Saturation 8.0 L, Ferritin 15, Vitamin B12 741 Micro: Microbiology 12/08/23 07:00 Stool Clostridioides difficile (PCR) - Final 12/08/23 07:00 Stool Stool Occult Blood (EBONY) - Final Occult Blood Positive 12/07/23 14:30 Stool Enteric Bacteriology - Final 12/07/23 05:45 Mucosa - Nasopharyngeal Respiratory Panel (PCR) - Final Physical Exam GI GI Narrative: Abdomen- soft, nontender Assessment & Plan Assessment/Plan (1) Abdominal pain: QUALIFIERS: Abdominal location: generalized Qualified Code(s): R10.84 - Generalized abdominal pain PLAN: I am seeing this patient in conjunction with Dr. Umanzor. He has also independently evaluated this patient. KUB yesterday demonstrated no evidence of small bowel obstruction. Contrast seen within the colon. Increase from clear to full liquids today Plan to increase patient to transitional diet tomorrow and possible discharge We will continue to monitor this patient Charges/Coding Visit Charges Inpatient E&M: 16437 [facility] Hosp L1
[2023-12-11 02:00] VITALS: BP 120/80; PULSE 68; RESP 16; TEMP 36.5; O2SAT 96
[2023-12-11 02:23] VITALS: BMI 22.6
[2023-12-11] MEDS: HYDROmorphone 0.5 MG/0.5 ML SYRINGE IV ×2 (04:34→10:30)
[2023-12-11] MEDS: 0.9% Normal Saline (1000mL) 1,000 ML 100 ML IV (04:35)
[2023-12-11] MEDS: Ondansetron 4 MG/2 ML Vial IV (04:37)
[2023-12-11 07:06] LABS: Absolute Lymphocyte Count 1.81 X10^3/uL (0.83-4.51); Absolute Neutrophil Count 2.9 X10^3/uL (2.0-7.7); Basophil# 0.05 X10^3/uL; Basophil% 0.9 % (0-1); Eosinophil# 0.15 X10^3/uL; Eosinophils% 2.7 % (0-5); Hematocrit 24.7 % (37-47); Hemoglobin 7.8 g/dL (12.0-15.0); Lymphocyte # 1.81 X10^3/ul (0.83-4.51); Lymphocyte % 32.3 % (19-41); Mean Corp Hgb Conc 31.6 g/dL (32-36); Mean Corpuscular Hgb 26.9 pg (27.0-32.0); Mean Corpuscular Volume 85.2 fL (81-99); Monocyte# 0.65 X10^3/uL; Monocyte% 11.6 % (0-10); NRBC Flagged by Analyzer 0 % (0-5); Neutrophil # 2.94 X10^3/uL (2.7-7.7); Neutrophil % 52.3 % (47-70); Platelet Count 235 K/mm3 (150-450); RBC Distribution Width CV 16.3 % (11.6-14.6); White Blood Count 5.6 K/mm3 (4.4-11.0)
[2023-12-11 07:53] LABS: Anion Gap 10 (5-15); BUN 2 mg/dL (7-18); BUN/Creat Ratio 2.4 RATIO (10-20); Calcium,Total 7.8 mg/dL (8.5-10.1); Chloride 114 mmol/L (98-107); Creatinine, Serum 0.82 mg/dL (0.55-1.02); EST Glomerular Filtration Rate 73 mL/min (>60); Est Glom Filt Rate - Afr Amer 88 mL/min (>60); Glucose 125 mg/dL (74-106); Potassium 3.2 mmol/L (3.5-5.1); Sodium Level 145 mmol/L (136-145)
[2023-12-11] MEDS: Budesonide Respules 0.5 MG/2 ML AMPUL.NEB. INHALATION (08:06)
[2023-12-11 08:07] VITALS: PULSE 63; RESP 16
--- NOTE | 2023-12-11 08:07 | PCM.PN.SRG ---
Subjective Subjective Patient evaluated resting comfortably in bed. She notes feeling much improved this morning. She notes tolerating a full liquid diet well. She notes continuing to have loose stools which is her normal. She denies nausea, vomiting. Objective Data Objective Data Vital Signs: Vital Signs Temp Pulse Resp BP Pulse Ox O2 Del Method 97.7 F L 68 16 120/80 96 Room Air 12/11/23 02:00 12/11/23 02:00 12/11/23 02:00 12/11/23 02:00 12/11/23 02:00 12/11/23 02:00 Oxygen Delivery Method Room Air Weight: 119 lb 14.903 oz Body Mass Index (BMI) 22.6 Intake & Output: Intake and Output for Last 24 Hours 12/09/23 12/10/23 12/11/23 23:59 23:59 23:59 Intake Total 2920 / 2920 2773.34 / 2773.34 1000 / 1000 Balance 2920 / 2920 2773.34 / 2773.34 1000 / 1000 Lab / Micro Data 12/11/23 06:10 12/11/23 06:10 Labs: Laboratory Results - last 24 hr 12/10/23 12:24: Iron 28 L, TIBC 350, Iron Saturation 8.0 L, Ferritin 15, Vitamin B12 741 12/11/23 06:10: WBC 5.6, RBC 2.90 L, Hgb 7.8 L, Hct 24.7 L, MCV 85.2, MCH 26.9 L, MCHC 31.6 L, RDW Std Deviation 51.0 H, RDW Coeff of Neno 16.3 H, Plt Count 235, MPV 11.0, Immature Gran % (Auto) 0.200, Neut % (Auto) 52.3, Lymph % (Auto) 32.3, [place] % (Auto) 11.6 H, Eos % (Auto) 2.7, Baso % (Auto) 0.9, Absolute Neuts (auto) 2.9, Absolute Lymphs (auto) 1.81, Nucleated RBC % 0, Sodium 145, Potassium 3.2 L, Chloride 114 H, Carbon Dioxide 21.0, Anion Gap 10, BUN 2 L, Creatinine 0.82, Estim Creat Clear Calc 46.80, Est GFR (MDRD) Af Amer 88, Est GFR (MDRD) Non-Af 73, BUN/Creatinine Ratio 2.4 L, Glucose 125 H, Calcium 7.8 L Micro: Microbiology 12/08/23 07:00 Stool Clostridioides difficile (PCR) - Final 12/08/23 07:00 Stool Stool Occult Blood (EBONY) - Final Occult Blood Positive 12/07/23 14:30 Stool Enteric Bacteriology - Final 12/07/23 05:45 Mucosa - Nasopharyngeal Respiratory Panel (PCR) - Final Physical Exam GI GI Narrative: Abdomen- soft, nontender, nondistended. Positive bowel sounds. Assessment & Plan Assessment/Plan (1) Abdominal pain: QUALIFIERS: Abdominal location: generalized Qualified Code(s): R10.84 - Generalized abdominal pain PLAN: I am seeing this patient in conjunction with Dr. Umanzor. He has independently evaluated this patient. Recommend transitional diet for breakfast and lunch If patient tolerates those 2 meals, she may be discharged Recommend continuing on the transitional diet for 2 weeks and slowly return to her normal diet If she notes a change in her abdominal pain, I would recommend decreasing her diet to clear liquids for 2 days and then slowly returning to normal diet once pain is resolved. Continue to hydrate Discussed avoiding narcotic medication as this change her bowel habits and cause abdominal pain. Patient verbally understands. Follow-up with our office as needed. Recommend following up with her PCP to have them follow her. Charges/Coding Visit Charges Inpatient E&M: 28795 Subs Hosp L1
[2023-12-11] MEDS: Pantoprazole Sodium 40 MG in 0.9% Normal Saline (100mL MB+) 100 ML 330 MG IV (08:11)
[2023-12-11] MEDS: Metoclopramide 10 MG/2 ML Vial 5 MG IV (08:11)
[2023-12-11 09:06] VITALS: BP 133/75; PULSE 68; RESP 16; TEMP 36.9; O2SAT 98
[2023-12-11] MEDS: Sodium Ferric Gluconat/Sucrose 125 MG in 0.9% Normal Saline (100mL Bag) 100 ML 110 MG IV (09:15)
[2023-12-11] MEDS: LORazepam 2 MG/ML Syringe 1 MG IV (09:15)
[2023-12-11 11:32] VITALS: BP 130/79; PULSE 73; RESP 16; TEMP 36.7; O2SAT 98
--- NOTE | 2023-12-11 13:58 | DCINST_ITS ---
Discharge Instructions Diet Discharge Diet: No restrictions Activity Discharge Activity: Return to Normal Activity Dressing / Incision Call your doctor if you observe: Fever of 101 or Higher, Using more than 1 pad per hour, Shortness of breath, Dizziness, Swelling in the ankles, Chest pain and Increased palpitations (irregular heartbeat) Follow Up Care Test Results: Test results from this visit will be discussed in further detail at your follow- up appointment, if applicable. Discharge Plan Admission Admit Date/Time: 12/07/23 00:00 Attending Provider: Aly Fragoso Primary Care Provider: Jaison Hill Consulting Providers: Lobo Umanzor; Jessica Thomas Discharge Orders/Prescriptions Prescriptions: Continued alprazolam [Xanax] 1 mg Tablet 1 mg PO BID Hold Instructions: Resume on 03/21/23. ondansetron HCl 4 mg Tablet 4 mg PO Q6H PRN (Reason: Nausea) Patient Comments: takes 8mg q6hr prn levothyroxine 50 mcg Tablet 50 mcg PO DAILY zolpidem [Ambien] 10 mg Tablet 10 mg PO QHS Hold Instructions: Resume on 03/21/23. esomeprazole magnesium 20 mg capsule,delayed release(DR/EC) 20 mg PO DAILY ezetimibe 10 mg Tablet 10 mg PO DAILY bupropion HCl 150 mg tablet extended release 24 hr 150 mg PO BID docusate sodium 100 mg capsule 100 mg PO BID Patient Comments: TAKE 1 CAPSULE BY MOUTH TWICE DAILY ropinirole 0.5 mg tablet 0.5 mg PO BID warfarin 5 mg tablet 5 mg PO DAILY buspirone 15 mg tablet 7.5 mg PO BID Breztri Aerosphere 160-9-4.8 mcg/actuation HFA aerosol inhaler 2 inh inhalation BID polyethylene glycol 3350 [Miralax] 17 gram/dose powder 17 g PO BID Referrals / Follow Up: Jaison Hill MD [Primary Care Provider] - Within 1 Week Disposition Disposition (needs filled in before D/C Order can be placed): Home, Self Care
--- NOTE | 2023-12-11 14:58 | CASEMGMT ---
Patient has order for discharge. RN CM in to discuss needs at discharge. Patient denies needs or help at discharge. Patient had no further questions or concerns.
--- NOTE | 2023-12-11 15:26 | DS.PCM_ITS ---
Providers Date of Admission: 12/07/23 Primary Care Physician: Dr. Jaison Hill MD Consultations 12/07/23 01:09 Consult: General Surgery Routine Consulting Provider: Lobo Umanzor Reason for Consult: ? pSBO, no meds yet at [facility], awaiting transfer EMERGENT Consult: No MD Notified: Yes Date Notified: 12/07/23 Time Notified: 00:05 Method of Notification: ED Physician Initiated Reason For Visit: pSBO Diagnosis Discharge Diagnosis (1) Abdominal pain: Status: Acute Code(s): R10.9 - Unspecified abdominal pain Qualifiers: Abdominal location: generalized Qualified Code(s): R10.84 - Generalized abdominal pain Medications at Discharge Home Medications alprazolam 1 mg tablet (Xanax) 1 mg PO BID anxiety 12/11/22 bupropion HCl 150 mg 24 hr tablet, extended release 150 mg PO BID mental health 12/11/22 esomeprazole magnesium 20 mg capsule,delayed release 20 mg PO DAILY reflux 12/11/22 ezetimibe 10 mg tablet 10 mg PO DAILY cholesterol 12/11/22 levothyroxine 50 mcg tablet 50 mcg PO DAILY thyroid 12/11/22 ondansetron HCl 4 mg tablet 4 mg PO Q6H PRN Nausea 12/11/22 zolpidem 10 mg tablet (Ambien) 10 mg PO QHS sleep 12/11/22 docusate sodium 100 mg capsule 100 mg PO BID stool softner 03/31/23 budesonide 160 mcg-glycopyr 9 mcg-formot 4.8 mcg/actuation HFA inhaler (Breztri Aerosphere) 2 inh inhalation BID breathing 12/06/23 buspirone 15 mg tablet 7.5 mg PO BID mental health 12/06/23 polyethylene glycol 3350 17 gram/dose oral powder (Miralax) 17 g PO BID bowels 12/06/23 ropinirole 0.5 mg tablet 0.5 mg PO BID restless legs 12/06/23 warfarin 5 mg tablet 5 mg PO DAILY blood thinner 12/06/23 Hospital Course Operations None Procedures None Summary of Care Provided Minutes Spent on Discharge: 37 Hospital Course: Per HPI: The patient is a 72 y/o F w/ PMHx: Hypothyroidism, Chronic anemia, CKD stage III unclear subtype, Anxiety and Depression, Hx VTE, HLD, GERD, Hx SBO s/p 7 prior abdominal surgeries including bowel resection who presents to the [facility] ED on 12/06/23 with history of ongoing worsening mid abdominal to left abdominal pain for the last 7 days with soft nonbloody bowel movements, several on day of presentation with nausea with dry heaving intermittently per discussion with daughter with ongoing flatus but given pain has been worsening with onset of chills with no fevers prompted ED evaluation. Patient reports discomfort primar bob constant dull aching with intermittent sharp stabbing and cramping. She notes it is worse with palpation of the abdomen. Pain ranges from 6-10 out of 10 in severity. She does note that her nausea improved with Reglan mostly in the ED. Workup in the ED included T97.4, heart rate 83, BP 175/1 141, respiratory rate 16, 99% on room air with most recent repeat vitals heart rate 75, BP 150/70, respiratory rate 16, 98% on room air, CBC with WBC 7.4, hemoglobin 10.1, MCV 85.2, platelet 281 without marked shift, CMP with chloride 113, BUN/creatinine 12/1.11, hepatic profile not marked aside AST 43, lipase 36, lactic acid 1.2, CT abdomen and pelvis with postoperative changes, small bowel distention with a partial obstruction adjacent to the postoperative change of the loop in the pelvis versus ileus. In the ED patient was administered 1 L bolus as well as maintenance normal saline IV fluids, Zofran 4 mg IV x 1, Reglan 5 mg IV x 1, morphine 4 mg IV x 2. ED discussed case with general surgery who reviewed CT imaging and was on the team at that time patient had previously been evaluated and required transfer 03/2023 secondary to complex bowel surgery history and failed inpatient conservative SBO management at that time with recommendation for transfer to tertiary facility to be cautious. Hospital course: 1. Intractable abdominal pain with nausea and vomiting secondary to partial small bowel obstruction/normocytic normochromic anemia/GERD?73-year-old female presented to the hospital with abdominal pain. She has a history of abdominal surgery with removal of about 40% of her small bowel so she is usually referred up to the [facility] however they did not have a bed immediately. Over her 4-day stay the small bowel obstruction slowly resolved on its own. She was able to start tolerating clear liquids and ultimately transition to a transitio nal diet on the day of discharge. There was an attempt at a small bowel follow- through but she could not tolerate the contrast as she would have nausea and vomiting after each sip. It was noted that she had a dilutional drop in her hemoglobin as she had come in with a hemoglobin of 10 and it ultimately went down to a hemoglobin of 8, she has received approximately 14 L of IV fluids over the course of her stay. Iron studies were obtained which did show a little bit of a mixed picture as her iron and her iron saturation were both low but her ferritin was low normal. She was given 2 doses of IV Venofer during her hospitalization as well and I do recommend outpatient follow-up with her PCP. I am hesitant to give her p.o. iron supplementation given all of her GI issues. I did discuss with her the need to follow-up with her PCP at the end of this week or early next week for lab work to continue to monitor her anemia. Her Coumadin was held on admission with potential for surgery however this will be restarted on discharge. I discussed the plan for discharge with general surgery and they were also in agreement. I did advise her that if she were to notice any bright red blood in her stools or dark stools, she would need to present back to the hospital for transfer to a higher level of care. On the day of discharge she felt that her nausea as well as her chronic abdominal pain were back to normal levels. 2. Anxiety, depression, restless legs, hypothyroidism, hyperlipidemia, history of DVT are chronic medical conditions which complicate her care. Her home medications were continued where appropriate Physical Exam Narrative General: Alert, Oriented x3, Cooperative, No apparent distress HEENT: Atraumatic, PERRLA, EOMI, Normocephalic Oral: Moist Mucosa Neck: Supple, No JVD Lungs: Diminished, Normal air movement, No rhonchi, No wheeze, No rales Cardiovascular: Regular rate, Regular Rhythm, Normal S1, Normal S2, No murmurs Abdomen: Soft, minimally tender, Non-Distended, No Hepato-splenomegaly Extremities: No edema, Capillary Refill Less than 3 Seconds Skin: No rashes, No breakdown Musculoskeletal: No Tenderness to Palpation of Joints or Extremities Neurological: No focal neurological deficits, Motor Exam 5/5 strength throughout, Sensory exam intact to light touch and pain Psych/Mental Status: Normal affect Weight / BMI Weight Weight: 119 lb 14.903 oz Body Mass Index (BMI) 22.6 ABG / Lab / Microbiology Data 12/11/23 06:10 12/11/23 06:10 Laboratory: Laboratory Results - last 24 hr 12/11/23 06:10: WBC 5.6, RBC 2.90 L, Hgb 7.8 L, Hct 24.7 L, MCV 85.2, MCH 26.9 L , MCHC 31.6 L, RDW Std Deviation 51.0 H, RDW Coeff of [place]eno 16.3 H, Plt Count 235, MPV 11.0, Immature Gran % (Auto) 0.200, Neut % (Auto) 52.3, Lymph % (Auto) 32.3, [place] % (Auto) 11.6 H, Eos % (Auto) 2.7, Baso % (Auto) 0.9, Absolute Neuts (auto) 2.9, Absolute Lymphs (auto) 1.81, Nucleated RBC % 0, Sodium 145, Potassium 3.2 L , Chloride 114 H, Carbon Dioxide 21.0, Anion Gap 10, BUN 2 L, Creatinine 0.82, Estim Creat Clear Calc 46.80, Est GFR (MDRD) Af Amer 88, Est GFR (MDRD) Non-Af 73, BUN/Creatinine Ratio 2.4 L, Glucose 125 H, Calcium 7.8 L Microbiology: Microbiology 12/08/23 07:00 Stool Clostridioides difficile (PCR) - Final 12/08/23 07:00 Stool Stool Occult Blood (EBONY) - Final Occult Blood Positive 12/07/23 14:30 Stool Enteric Bacteriology - Final 12/07/23 05:45 Mucosa - Nasopharyngeal Respiratory Panel (PCR) - Final D/C Instructions Discharge Diet: No restrictions Call your doctor if you observe: Fever of 101 or Higher, Using more than 1 pad per hour, Shortness of breath, Dizziness, Swelling in the ankles, Chest pain and Increased palpitations (irregular heartbeat) Meaningful Use Info Meaningful Use Diagnoses (Choose all that apply): None applicable Discharge Plan Admission Admit Date/Time: 12/07/23 00:00 Attending Provider: Aly Fragoso Primary Care Provider: Jaison Hill Consulting Providers: Lobo Umanzor; Jessica Thomas Discharge Orders/Prescriptions Prescriptions: Continued alprazolam [Xanax] 1 mg Tablet 1 mg PO BID Hold Instructions: Resume on 03/21/23. ondansetron HCl 4 mg Tablet 4 mg PO Q6H PRN (Reason: Nausea) Patient Comments: takes 8mg q6hr prn levothyroxine 50 mcg Tablet 50 mcg PO DAILY zolpidem [Ambien] 10 mg Tablet 10 mg PO QHS Hold Instructions: Resume on 03/21/23. esomeprazole magnesium 20 mg capsule,delayed release(DR/EC) 20 mg PO DAILY ezetimibe 10 mg Tablet 10 mg PO DAILY bupropion HCl 150 mg tablet extended release 24 hr 150 mg PO BID docusate sodium 100 mg capsule 100 mg PO BID Patient Comments: TAKE 1 CAPSULE BY MOUTH TWICE DAILY ropinirole 0.5 mg tablet 0.5 mg PO BID warfarin 5 mg tablet 5 mg PO DAILY buspirone 15 mg tablet 7.5 mg PO BID Breztri Aerosphere 160-9-4.8 mcg/actuation HFA aerosol inhaler 2 inh inhalation BID polyethylene glycol 3350 [Miralax] 17 gram/dose powder 17 g PO BID Referrals / Follow Up: Jaison Hill MD [Primary Care Provider] - Within 1 Week Disposition Disposition (needs filled in before D/C Order can be placed): Home, Self Care Charges/Coding Visit Charges Inpatient E&M: 15857 Disch Hosp >30min
== END 2023-12-11 15:20 | disposition home or self-care (01) | DRG 390 ==
LOC: ED 16:10 → PCU 12-07 00:22
PROVIDERS: Admitting Provider Family Medicine; Emergency Provider Emergency Medicine; Visit Provider Family Medicine
DX: K56.600 Partial intestinal obstruction, unspecified as to cause (principal); D63.1 Anemia in chronic kidney disease; N18.30 Chronic kidney disease, stage 3 unspecified; E03.9 Hypothyroidism, unspecified; G25.81 Restless legs syndrome; F32.A Depression, unspecified; E78.5 Hyperlipidemia, unspecified; K21.9 Gastro-esophageal reflux disease without esophagitis; F41.9 Anxiety disorder, unspecified; Z79.01 Long term (current) use of anticoagulants; Z82.5 Family history of asthma and other chronic lower respiratory diseases; R03.0 Elevated blood-pressure reading, without diagnosis of hypertension; Z86.718 Personal history of other venous thrombosis and embolism
CPT/HCPCS: 36415; 74018; 74177; 80048; 80053; 82274; 82607; 82728; 83540; 83550; 83605; 83690; 83735; 84100; 85014; 85018; 85025; 85610; 87493; 87506; 87633; 94640; 94668; 97161; 97166; 97802; 97803; 99283; J7030; J7050; Q9967; A4216; J2405; J2916

== ENCOUNTER 2023-12-13 10:18 | Emergency (ER) | payer MEDICARE, SELFPAY ==
[2023-12-13 10:19] VITALS: BP 162/99; PULSE 82; RESP 17; RESP 19; TEMP 35.9; O2SAT 99; BMI 24.0
--- NOTE | 2023-12-13 10:42 | ED.VIS.GI ---
HPI HPI - GI History of Present Illness Chief Complaint: Abd Pain Informant: patient Abdominal Pain/Flank Pain Onset: Yesterday Context: Gradual Onset Timing: Continuous Quality: Aching, Cramping and Stabbing Location: Diffuse Worsened by: Movement (Stretching and curling up into a ball) Relieved by: Nothing Nausea/Vomiting/Emesis GI Symptom: Positive for Nausea and Vomiting Quality: Negative for Blood streaks, Coffee ground or Hematemesis Diarrhea/Melena/Hematochezia GI Symptom: Negative for Diarrhea, Melena or Hematochezia Associated Symptoms Associated Symptoms: Negative for Dysuria, Frequency or Hematuria Narrative Narrative: Patient presents with abdominal pain that began last night. Patient states it has gradually gotten worse. Patient states her pain is diffuse across her abdomen. Patient states it is worse whenever she stretches her abdomen. Patient states it is also worse when she curls up into a ball. Patient admits to some nausea and vomiting but denies hematemesis or coffee-ground emesis. Patient denies any diarrhea, melena, or hematochezia. Patient states she has been constipated. Patient states she did pass gas once today. Patient denies any urinary complaints. [facility] Medical History Anxiety and depression Chronic anemia CKD (chronic kidney disease), stage III Depression DVT (deep venous thrombosis) GERD (gastroesophageal reflux disease) History of small bowel obstruction History of venous thromboembolism HLD (hyperlipidemia) Hyperthyroidism Hypothyroidism Irritable bowel Scarlet fever Home Medications alprazolam 1 mg tablet (Xanax) 1 mg PO BID anxiety 12/11/22 [History Last Taken Unknown] bupropion HCl 150 mg 24 hr tablet, extended release 150 mg PO BID mental health 12/11/22 [History Last Taken Unknown] esomeprazole magnesium 20 mg capsule,delayed release 20 mg PO DAILY reflux 12/11/22 [History Last Taken Unknown] ezetimibe 10 mg tablet 10 mg PO DAILY cholesterol 12/11/22 [History Last Taken Unknown] levothyroxine 50 mcg tablet 50 mcg PO DAILY thyroid 12/11/22 [History Last Taken Unknown] zolpidem 10 mg tablet (Ambien) 10 mg PO QHS sleep 12/11/22 [History Last Taken Unknown] docusate sodium 100 mg capsule 100 mg PO BID stool softner 03/31/23 [History Last Taken Unknown] budesonide 160 mcg-glycopyr 9 mcg-formot 4.8 mcg/actuation HFA inhaler (Breztri Aerosphere) 2 inh inhalation BID breathing 12/06/23 [History Last Taken Unknown] buspirone 15 mg tablet 7.5 mg PO BID mental health 12/06/23 [History Last Taken Unknown] polyethylene glycol 3350 17 gram/dose oral powder (Miralax) 17 g PO BID bowels 12/06/23 [History Last Taken Unknown] ropinirole 0.5 mg tablet 0.5 mg PO BID restless legs 12/06/23 [History Last Taken Unknown] warfarin 5 mg tablet 5 mg PO DAILY blood thinner 12/06/23 [History Last Taken Unknown] ondansetron HCl 4 mg tablet 4 mg PO Q6H PRN Nausea #10 tabs 12/13/23 [Rx Last Taken Unknown] Allergy/AdvReac Type Severity Reaction Status Date / Time cefdinir [From Omnicef] Allergy Hives Verified 03/31/23 22:24 codeine Allergy NEEDS Verified 03/31/23 22:24 FOLLOW-UP latex Allergy Anaphylaxis Verified 03/31/23 22:24 prochlorperazine Allergy NEEDS Verified 03/31/23 22:24 [From Compazine] FOLLOW-UP shellfish derived Allergy Anaphylaxis Verified 03/31/23 22:24 levofloxacin [From Levaquin] AdvReac Vomiting Verified 03/31/23 22:24 Qryfjjf-VNO-DaS Reductase AdvReac NEEDS Verified 03/31/23 22:24 Inhibitor FOLLOW-UP Family History (Updated 03/16/23 @ 06:[address] Jessica Thomas MD) Mother Heart disease COPD (chronic obstructive pulmonary disease) Father Heart disease Hypertension CAD (coronary artery disease) Myocardial infarction Surgical History History of appendectomy History of cholecystectomy History of colon surgery History of total abdominal hysterectomy Social History household members: none Smoking Status: Never smoker alcohol intake: never substance use type: does not use ROS ROS ED Constitutional Constitutional ED: Reports chills and subjective; Denies fever(s) Eyes Eyes: Denies blurry vision or change in vision ENT ENT ED: Denies rhinorrhea or sore throat Cardiovascular Cardiovascular: Denies chest pain or palpitations Respiratory/Chest Respiratory/Chest: Denies cough or dyspnea Gastrointestinal Gastrointestinal: Reports abdominal pain, nausea and vomiting; Denies diarrhea or melena Genitourinary Genitourinary ED: Denies dysuria or hematuria Musculoskeletal Musculoskeletal: Reports back pain; Denies neck pain Integumentary Denies abscess or rash Neurologic Neurologic: Denies headache(s) or weakness Allergic/Immunologic Allergic/Immunologic ED: Denies mouth swelling or urticaria EXAM Physical Exam Const Vital Signs: 12/13/23 10:19 12/13/23 10:19 12/13/23 11:47 Temperature 96.7 F L 96.7 F L 97.6 F L Temperature Source Temporal Temporal Oral Pulse Rate 82 82 60 Respiratory Rate 17 19 H 17 Blood Pressure 162/99 H 162/99 H 151/95 H Blood Pressure Mean 120 120 113 Pulse Ox 99 99 100 Oxygen Delivery Method Room Air Room Air Room Air Positive well nourished and well developed General Appearance ED: well developed and NAD HEENT Reports moist mucous membranes Neck supple and no JVD Resp normal respiratory effort and clear to auscultation bilaterally Cardio regular rate and regular rhythm GI non-distended Palpation: soft and tender epigastric, LLQ, RLQ, LUQ, RUQ, periumbilical and suprapubic Neuro CN's II-XII intact bilaterally, moves all extremities and no sensory deficits noted Sensorium / Orientation: alert Motor Exam: strength 5/5 throughout Psych mental status grossly normal MDM MDM MDM Narrative Medical decision making narrative: Differential diagnosis includes bowel obstruction, perforation, gastritis, pancreatitis, peptic ulcer disease, duodenal ulcer, choledocholithiasis, and anxiety. CBC will be obtained to assess for leukocytosis and anemia. Comprehensive metabolic profile will be obtained to assess for hepatic function, renal function, and electrolyte abnormality. Lipase will be obtained to assess for pancreatitis. Urinalysis will be obtained to assess for urinary tract infection and hematuria. Acute abdominal x-rays will be obtained to assess for bowel obstruction and perforation. Lab Data Attestation: I reviewed the patient's lab results. Lab results narrative: CBC was reviewed. There is a mild anemia with a hemoglobin of 8.6 and hematocrit 27.3. This was improved from previous result. Comprehensive metabolic profile was reviewed and was within normal limits. Lipase was reviewed and was only slightly elevated at 94. Urinalysis was reviewed. There is no evidence of urinary tract infection or hematuria. Labs: Laboratory Results - last 24 hr 12/13/23 12/13/23 11:30 11:34 WBC 9.7 RBC 3.16 L Hgb 8.6 L Hct 27.3 L MCV 86.4 MCH 27.2 MCHC 31.5 L RDW Std Deviation 53.4 H RDW Coeff of Neno 17.0 H Plt Count 310 MPV 10.7 Immature Gran % (Auto) 0.400 Neut % (Auto) 67.1 Lymph % (Auto) 21.9 [place] % (Auto) 8.2 Eos % (Auto) 2.0 Baso % (Auto) 0.4 Absolute Neuts (auto) 6.5 Absolute Lymphs (auto) 2.12 Nucleated RBC % 0 Sodium 144 Potassium 3.7 Chloride 113 H Carbon Dioxide 26.0 Anion Gap 5 BUN 9 Creatinine 0.90 Estim Creat Clear Calc 46.13 Est GFR (MDRD) Af Amer 80 Est GFR (MDRD) Non-Af 66 BUN/Creatinine Ratio 10.1 Glucose 92 Calcium 8.9 Total Bilirubin 0.30 AST 20 ALT 34 Alkaline Phosphatase 103 Total Protein 5.7 L Albumin 2.7 L Globulin 3.0 Albumin/Globulin Ratio 0.9 Lipase 94 H Urine Color Straw Urine Clarity Sl. Cloudy Urine pH 7.0 Ur Specific [place] 1.005 Urine Protein Negative Urine Glucose (UA) Normal Urine Ketones Negative Urine Occult Blood Negative Urine Nitrite Negative Urine Bilirubin Negative Urine Urobilinogen Normal Ur Leukocyte Esterase 25 H Urine RBC 0 SEEN Urine WBC 0-5 SEEN Ur Squamous Epith Cells 0-5 SEEN Urine Bacteria 0 SEEN Urine Mucus 0 SEEN Radiography Diagnostic Testing: Clinical Impression(s) from Imaging Studies Acute Abdomen Series 12/13/23 11:55 IMPRESSION: Blunting of the right costo phrenic angle. Large amount of residual food particles seen in the stomach. Electronically Signed: Kiet Benavidez MD at 12:47 EDT , Acute abdominal x-rays were obtained. There are 4 views. On my independent interpretation, there is nonspecific bowel gas pattern. There is no evidence of obstruction or perforation. There is no acute cardiopulmonary process noted. There is moderate amount of stool throughout the colon. Radiologist also interpreted the x-ray and agrees. Treatment and Re-Evaluation :: Patient was given IV fluids, morphine, and Zofran. Patient states she is feeling better on reevaluation. Patient was advised to start with small sips of fluids. Patient was instructed to follow-up with her primary care physician in 3 to 5 days. Patient was also instructed to follow-up with her surgeons at [facility]. Patient was instructed to return if worse in any way. Patient was also advised that she could go to a [facility] that may be able to transfer her to the main campus at [facility] quicker should her symptoms return and she would develop another bowel obstruction. Patient understood and was agreeable with the plan. All questions were answered. Discharge Plan Triage Chief Complaint: Abd Pain ED Provider: Mike Fraser Dx/Rx/DC Orders Clinical Impression: Nausea and vomiting, Abdominal pain Instructions: ED Abdominal Pain Unkn Cause Fem, ED Vomiting (Adult) Prescriptions: Continued ondansetron HCl 4 mg Tablet 4 mg PO Q6H PRN (Reason: Nausea) Qty: 10 0RF No Action alprazolam [Xanax] 1 mg Tablet 1 mg PO BID Hold Instructions: Resume on 03/21/23. levothyroxine 50 mcg Tablet 50 mcg PO DAILY zolpidem [Ambien] 10 mg Tablet 10 mg PO QHS Hold Instructions: Resume on 03/21/23. esomeprazole magnesium 20 mg capsule,delayed release(DR/EC) 20 mg PO DAILY ezetimibe 10 mg Tablet 10 mg PO DAILY bupropion HCl 150 mg tablet extended release 24 hr 150 mg PO BID docusate sodium 100 mg capsule 100 mg PO BID Patient Comments: TAKE 1 CAPSULE BY MOUTH TWICE DAILY ropinirole 0.5 mg tablet 0.5 mg PO BID warfarin 5 mg tablet 5 mg PO DAILY buspirone 15 mg tablet 7.5 mg PO BID Breztri Aerosphere 160-9-4.8 mcg/actuation HFA aerosol inhaler 2 inh inhalation BID polyethylene glycol 3350 [Miralax] 17 gram/dose powder 17 g PO BID Primary Care Provider: Jaison Hill Referrals: Jaison Hill MD [Primary Care Provider] - 3-5 Days Disposition Disposition: Home, Self Care
[2023-12-13 11:40] LABS: Bacteria 0 SEEN /hpf (None Seen); Mucous, Urine 0 SEEN /hpf (<or=2+); Red Blood Cells-Urine 0 SEEN /hpf (0-5)
[2023-12-13 11:40] LABS: Absolute Lymphocyte Count 2.12 X10^3/uL (0.83-4.51); Absolute Neutrophil Count 6.5 X10^3/uL (2.0-7.7); Basophil# 0.04 X10^3/uL; Basophil% 0.4 % (0-1); Eosinophil# 0.19 X10^3/uL; Hematocrit 27.3 % (37-47); Hemoglobin 8.6 g/dL (12.0-15.0); Lymphocyte # 2.12 X10^3/ul (0.83-4.51); Lymphocyte % 21.9 % (19-41); Mean Corp Hgb Conc 31.5 g/dL (32-36); Mean Corpuscular Hgb 27.2 pg (27.0-32.0); Mean Corpuscular Volume 86.4 fL (81-99); Mean Platelet Vol. 10.7 fl (6.2-12.0); Monocyte# 0.79 X10^3/uL; Monocyte% 8.2 % (0-10); NRBC Flagged by Analyzer 0 % (0-5); Neutrophil # 6.49 X10^3/uL (2.7-7.7); Neutrophil % 67.1 % (47-70); Platelet Count 310 K/mm3 (150-450); RBC Distribution Width SD 53.4 fl (35.1-43.9); Red Blood Count 3.16 M/mm3 (4.2-5.4); White Blood Count 9.7 K/mm3 (4.4-11.0)
[2023-12-13 11:44] LABS: Color, Urine Straw (Yellow); Glucose, Dipstick Normal (Normal); Ketone-Dipstick Negative (Negative); Leukocyte Esterase-Dipstick 25 /ul (Negative); Nitrite-Dipstick Negative (Negative); Occult Blood-Urine Negative /ul (Negative); Protein-Dipstick Negative (Negative); Specific Gravity, Urine 1.005 (1.002-1.030); Urine Bilirubin Dipstick Negative (Negative); Urine Clarity Sl. Cloudy (Clear); Urine Urobilinogen Normal (Normal)
[2023-12-13] MEDS: Ondansetron 4 MG/2 ML Vial IV (11:45)
[2023-12-13] MEDS: Morphine 4 MG/ML Syringe IV (11:45)
[2023-12-13] MEDS: 0.9% Normal Saline (1000mL) 1,000 ML 1000 ML IV (11:45)
[2023-12-13 11:47] VITALS: BP 151/95; PULSE 60; RESP 17; TEMP 36.4; O2SAT 100
[2023-12-13 11:51] LABS: Squamous Epithelial Cells - UA 0-5 SEEN /hpf (5-10); White Blood Cells 0-5 SEEN /hpf (0-5)
[2023-12-13 11:55] LABS: ALB/GLOB Ratio 0.9 RATIO (0.9-2.4); AST(SGOT) 20 U/L (15-37); Alanine Aminotransfer ALT/SGPT 34 U/L (13-56); Albumin, Serum 2.7 g/dL (3.2-5.0); Alkaline Phosphatase 103 U/L (45-117); Anion Gap 5 (5-15); BUN 9 mg/dL (7-18); BUN/Creat Ratio 10.1 RATIO (10-20); Calcium,Total 8.9 mg/dL (8.5-10.1); Chloride 113 mmol/L (98-107); EST Glomerular Filtration Rate 66 mL/min (>60); Est Glom Filt Rate - Afr Amer 80 mL/min (>60); Estimated Creatinine Clearance 46.13 ml/min; Glucose 92 mg/dL (74-106); Lipase 94 U/L (13-75); Potassium 3.7 mmol/L (3.5-5.1); Protein, Total 5.7 g/dL (6.4-8.2); Sodium Level 144 mmol/L (136-145)
--- NOTE | 2023-12-13 11:55 | RAD_ITS ---
STUDY: X-RAY - ACUTE ABDOMINAL SERIES REASON FOR EXAM: Female, 73 years old. Pain TECHNIQUE: Single view of the chest. Supine, and erect view(s) of the abdomen were obtained. COMPARISON: Comparison is made with prior study December 09, 2023. FINDINGS: EKG electrodes are seen. Blunting of the right costophrenic angle. Normal size heart. Normal mediastinum and tierney. Normal visualized pulmonary arteries. There is atherosclerotic calcification of the aortic arch with tortuosity. Residual food particles are seen within the stomach. Surgical anastomosis seen in the rectosigmoid region. Normal visualized osseous structures. RAD/Acute Abdomen Inc Chest IMPRESSION: Blunting of the right costo phrenic angle. Large amount of residual food particles seen in the stomach. Electronically Signed: Kiet Benavidez MD at 12:47 EDT ,
[2023-12-13 13:34] VITALS: BP 129/73; PULSE 62; RESP 14; TEMP 36.2; O2SAT 100
== END 2023-12-13 13:42 | disposition home or self-care (01) ==
PROVIDERS: Emergency Provider Emergency Medicine; Visit Provider Emergency Medicine
DX: R10.9 Unspecified abdominal pain (principal); N18.30 Chronic kidney disease, stage 3 unspecified; R11.2 Nausea with vomiting, unspecified; E78.5 Hyperlipidemia, unspecified; F41.8 Other specified anxiety disorders; K21.9 Gastro-esophageal reflux disease without esophagitis; E03.9 Hypothyroidism, unspecified; Z86.718 Personal history of other venous thrombosis and embolism; Z79.01 Long term (current) use of anticoagulants; Z90.49 Acquired absence of other specified parts of digestive tract; Z90.710 Acquired absence of both cervix and uterus
CPT/HCPCS: 74022; 80053; 81001; 83690; 85025; 96361; 96374; 96375; 99282; J7030; A4216; J2405

== ENCOUNTER 2024-08-01 12:39 | Emergency (ER) | payer MEDICARE, SELFPAY ==
[2024-08-01 12:40] VITALS: BP 172/86; PULSE 68; RESP 15; TEMP 36.4; O2SAT 98
[2024-08-01 12:43] VITALS: BP 172/86; PULSE 76; RESP 15; TEMP 36.4; O2SAT 98
--- NOTE | 2024-08-01 13:38 | EKG12_ITS ---
Test Reason : Blood Pressure : */* mmHG Vent. Rate : 63 BPM Atrial Rate : 63 BPM P-R Int : 170 ms QRS Dur : 80 ms QT Int : 424 ms P-R-T Axes : 67 28 52 degrees QTcB Int : 433 ms Normal sinus rhythm Normal ECG Confirmed by SEAN KAPADIA, LILIAN ([id number]), clinical editor ROGERS OCHOA ([id number]) on 08/05/2024 8:03:18 A M Referred By: Confirmed By: LILIAN ESTRADA MD
--- NOTE | 2024-08-01 13:38 | CT_ITS ---
INDICATION: Abdominal pain, history of cholecystectomy, appendectomy, hysterectomy and colonic surgery EXAMINATION: CT ABDOMEN AND PELVIS WITH CONTRAST - CT Abdomen And Pelvis W/ Contrast Injection TECHNIQUE: Helically acquired images were obtained of the abdomen and pelvis following IV contrast. A radiation dose optimization technique was used for this scan. IV Contrast dosage and agent: 100 cc Isovue-300 Oral contrast: None. COMPARISON: 12/06/2023 FINDINGS: LOWER CHEST: Lung bases are clear. No cardiomegaly or pericardial effusion. LIVER: Stable low-attenuation lesion right lobe. No concerning focal mass. GALLBLADDER AND BILIARY TREE: Cholecystectomy. Stable biliary dilatation with 8 mm common bile duct. No choledocholithiasis. PANCREAS: No focal cystic or solid mass. SPLEEN: Normal size without focal cystic or solid mass. ADRENAL GLANDS: No nodules. KIDNEYS AND URETERS: Uniform enhancement, small right cortical cyst. No hydronephrosis. PERITONEUM: No ascites or free air. BOWEL: No evidence of acute appendicitis. Stable surgical changes with stable focal bowel dilatation at the anastomotic sutures in the lower abdomen. Diffusely increased colonic fecal burden. LYMPH NODES: No enlarged mesenteric or retroperitoneal lymph nodes. VESSELS: Aorta is non-dilated. URINARY BLADDER: Unremarkable. REPRODUCTIVE ORGANS: Hysterectomy. ABDOMINAL WALL: No discrete abdominal or pelvic wall hernia. BONES: No acute or aggressive abnormality. CT/Abdomen/Pelvis W IV Cont ONLY IMPRESSION: No acute findings in the abdomen or pelvis. Stable postsurgical changes in the abdomen. Status post cholecystectomy with stable biliary dilatation. Colonic fecal burden consistent with clinical constipation. Electronically Signed: Lex Borrero MD at 16:13 EST ,
--- NOTE | 2024-08-01 13:56 | EX.ED.DYSGE1 ---
HPI History of Present Illness Chief Complaint: General Illness Narrative Narrative: At chief complaint and HPI: Multiple complaints. 74-year-old female with history of IBS, hypothyroidism, anxiety, history of blood clot on warfarin presents for evaluation of multiple complaints. Patient states a month ago she was treated for a left ear infection with perforated eardrum. She states she was placed on Augmentin and symptoms resolved. She states she followed up with her PCP and everything healed well. She states for the past month she has been having intermittent numbness in her bilateral hands as well as decreased oracle adf developer strength. She states that she is periodically dropping things. Patient also endorses bilateral lower extremity swelling for the past week. She also endorses diffuse abdominal pain that started yesterday. She denies any fever, chills, URI symptoms, shortness of breath, chest pain, nausea, vomiting, diarrhea, constipation, dysuria. Patient states she called her PCPs office today who told her that she needs to present to the emergency department. Review of systems: See HPI Medications: As listed on the chart Allergies: As listed on the chart PFSH: Per chart Vital signs: As listed on the chart. Reviewed. Physical exam: Gen: A&O x3, NAD Head: Normocephalic, atraumatic Eyes: No sclera icterus, conjunctiva clear, PERRL, EOMI ENT: TMs clear BL, moist mucous membranes Neck: Trachea midline, No JVD, Full ROM CV: RRR, no murmurs, mild bilateral nonpitting peripheral edema Resp: Lungs CTA BL, no w/r/c GI: Abd soft, non-distended, diffuse tenderness to palpation, no r/r : No CVA tenderness Musc: Full ROM, no deformity, strength plus 5 out of 5 in all extremities, + Phalen's test for carpal tunnel Skin: Warm, dry, no rash [facility] Medical History Anxiety and depression Chronic anemia CKD (chronic kidney disease), stage III Depression DVT (deep venous thrombosis) GERD (gastroesophageal reflux disease) History of small bowel obstruction History of venous thromboembolism HLD (hyperlipidemia) Hyperthyroidism Hypothyroidism Irritable bowel Scarlet fever Home Medications ?Medication ?Instructions ?Recorded ?Last Taken ?Type alprazolam 1 mg tablet (Xanax) 1 mg PO BID anxiety 12/11/22 Unknown History bupropion HCl 150 mg 24 hr tablet, 150 mg PO BID mental health 12/11/22 Unknown History extended release esomeprazole magnesium 20 mg 20 mg PO DAILY reflux 12/11/22 Unknown History capsule,delayed release ezetimibe 10 mg tablet 10 mg PO DAILY cholesterol 12/11/22 Unknown History levothyroxine 50 mcg tablet 50 mcg PO DAILY thyroid 12/11/22 Unknown History zolpidem 10 mg tablet (Ambien) 10 mg PO QHS sleep 12/11/22 Unknown History docusate sodium 100 mg capsule 100 mg PO BID stool softner 03/31/23 Unknown History budesonide 160 mcg-glycopyr 9 2 inh inhalation BID breathing 12/06/23 Unknown History mcg-formot 4.8 mcg/actuation HFA inhaler (Breztri Aerosphere) buspirone 15 mg tablet 7.5 mg PO BID mental health 12/06/23 Unknown History polyethylene glycol 3350 17 17 g PO BID bowels 12/06/23 Unknown History gram/dose oral powder (Miralax) ropinirole 0.5 mg tablet 0.5 mg PO BID restless legs 12/06/23 Unknown History warfarin 5 mg tablet 5 mg PO DAILY blood thinner 12/06/23 Unknown History ondansetron HCl 4 mg tablet 4 mg PO Q6H PRN Nausea #10 tabs 12/13/23 Unknown Rx Allergy/AdvReac Type Severity Reaction Status Date / Time cefdinir (From Omnicef) Allergy Hives Verified 08/01/24 12:44 codeine Allergy NEEDS Verified 08/01/24 12:44 FOLLOW-UP latex Allergy Anaphylaxis Verified 08/01/24 12:44 prochlorperazine (From Allergy NEEDS Verified 08/01/24 12:44 Compazine) FOLLOW-UP shellfish derived Allergy Anaphylaxis Verified 08/01/24 12:44 levofloxacin (From Levaquin) AdvReac Vomiting Verified 08/01/24 12:44 Yyhenaj-FGI-[id number] Reductase AdvReac NEEDS Verified 08/01/24 12:44 Inhibitor FOLLOW-UP Family History (Updated 03/16/23 @ 06:[address] Jessica Thomas MD) Mother Heart disease COPD (chronic obstructive pulmonary disease) Father Heart disease Hypertension CAD (coronary artery disease) Myocardial infarction Surgical History History of appendectomy History of cholecystectomy History of colon surgery History of total abdominal hysterectomy Social History household members: none Smoking Status: Never smoker alcohol intake: never substance use type: does not use EXAM Physical Exam Const Vital Signs: 08/01/24 12:40 08/01/24 12:43 08/01/24 14:40 Temperature 97.6 F L 97.6 F L Temperature Source Temporal Temporal Pulse Rate 68 76 68 Respiratory Rate 15 15 16 Blood Pressure 172/86 H 172/86 H 101/86 H Blood Pressure Mean 114 114 91 Pulse Ox 98 98 98 Oxygen Delivery Method Room Air Room Air Room Air MDM MDM MDM Narrative Medical decision making narrative: 74-year-old female with history of IBS, hypothyroidism, anxiety, history of blood clot on warfarin presents for evaluation of multiple complaints including intermittent numbness tingling of bilateral hands as well as decreased oracle adf developer strength in the bilateral hands, diffuse abdominal pain, and bilateral lower extremity swelling. Differential diagnosis includes but is not limited to carpal tunnel syndrome syndrome, electrolyte abnormality, heart failure, thyroid disease, UTI, diverticulitis, pancreatitis, gastritis. See physical exam findings. Patient's Phalen's test was positive for carpal tunnel. I suspect that this is the cause of her intermittent bilateral hand numbness and tingling as well as intermittent decrease in oracle adf developer strength. Cardiac/GI workup ordered for swelling and abdominal pain. EKG reviewed see below. CBC without leukocytosis. Patient has anemia with hemoglobin of 10.3. This is up trending from previous labs. CMP with baseline renal insufficiency. No transaminitis. Troponin unremarkable. BNP mildly elevated at 243.6. Patient may be developing heart failure giving her mild nonpitting peripheral edema and elevated BNP however I do not think any emergent echocardiogram is needed at this time. TSH is high at 4.320. However her free T4 is unremarkable. This will need to be followed up outpatient as patient is on Synthroid. UA is negative for UTI. At this point in time no clear etiology for patient's symptoms. Chest x-ray and CT abdomen pelvis pending at this time. Final disposition pending results. If both are negative patient can discharge home and follow-up with PCP. Wrist splints as needed for suspected carpal tunnel. Patient was discussed and signed out to Dr. Patel who will await imaging results. EKG: Interpreted by me/EM physician: EKG shows normal sinus rhythm without any acute ischemic changes heart rate 63 Impression: 1. Intermittent bilateral hand numbness and tingling/intermittent decreased oracle adf developer strength, suspect carpal tunnel 2. Peripheral nonpitting edema 3. Diffuse abdominal pain with history of IBS Lab Data Labs: Laboratory Results - last 24 hr 08/01/24 08/01/24 14:01 14:03 WBC 8.0 RBC 3.32 L Hgb 10.3 L Hct 31.7 L MCV 95.5 MCH 31.0 MCHC 32.5 RDW Std Deviation 47.4 H RDW Coeff of [place]eno 13.4 Plt Count 326 MPV 9.7 Immature Gran % (Auto) 0.500 Neut % (Auto) 46.9 L Lymph % (Auto) 40.0 [place] % (Auto) 9.3 Eos % (Auto) 2.5 Baso % (Auto) 0.8 Absolute Neuts (auto) 3.7 Absolute Lymphs (auto) 3.18 Nucleated RBC % 0 Sodium 139 Potassium 4.6 Chloride 109 H Carbon Dioxide 28.0 Anion Gap 2 L BUN 17 Creatinine 1.03 H Est GFR (MDRD) Af Amer 68 Est GFR (MDRD) Non-Af 56 L BUN/Creatinine Ratio 16.5 Glucose 92 Calcium 8.4 L Total Bilirubin 0.40 AST 26 ALT 20 Alkaline Phosphatase 86 Troponin I High Sens 3 B-Natriuretic Peptide 243.6 H Total Protein 6.8 Albumin 3.2 Globulin 3.6 Albumin/Globulin Ratio 0.9 Lipase 28 TSH 4.320 H Free T4 1.01 Urine Color Straw Urine Clarity Clear Urine pH 7.0 Ur Specific [place] 1.005 Urine Protein Negative Urine Glucose (UA) Normal Urine Ketones Negative Urine Occult Blood Negative Urine Nitrite Negative Urine Bilirubin Negative Urine Urobilinogen Normal Ur Leukocyte Esterase Negative Urine RBC 0 SEEN Urine WBC 0 SEEN Ur Squamous Epith Cells 0-5 SEEN Urine Bacteria 0 SEEN Urine Mucus 0 SEEN Discharge Plan Triage Chief Complaint: General Illness ED Provider: Samson Gan Dx/Rx/DC Orders Prescriptions: No Action alprazolam [Xanax] 1 mg Tablet 1 mg PO BID levothyroxine 50 mcg Tablet 50 mcg PO DAILY zolpidem [Ambien] 10 mg Tablet 10 mg PO QHS esomeprazole magnesium 20 mg capsule,delayed release(DR/EC) 20 mg PO DAILY ezetimibe 10 mg Tablet 10 mg PO DAILY bupropion HCl 150 mg tablet extended release 24 hr 150 mg PO BID docusate sodium 100 mg capsule 100 mg PO BID Patient Comments: TAKE 1 CAPSULE BY MOUTH TWICE DAILY ropinirole 0.5 mg tablet 0.5 mg PO BID warfarin 5 mg tablet 5 mg PO DAILY buspirone 15 mg tablet 7.5 mg PO BID Breztri Aerosphere 160-9-4.8 mcg/actuation HFA aerosol inhaler 2 inh inhalation BID polyethylene glycol 3350 [Miralax] 17 gram/dose powder 17 g PO BID ondansetron HCl 4 mg Tablet 4 mg PO Q6H PRN (Reason: Nausea) Qty: 10 0RF Primary Care Provider: Jaison Hill Referrals: Jaison Hill MD [Primary Care Provider] - Print Language: Georgian
[2024-08-01 14:26] LABS: Bacteria 0 SEEN /hpf (None Seen); Mucous, Urine 0 SEEN /hpf (<or=2+); Red Blood Cells-Urine 0 SEEN /hpf (0-5); White Blood Cells 0 SEEN /hpf (0-5)
[2024-08-01 14:30] LABS: Absolute Lymphocyte Count 3.18 X10^3/uL (0.83-4.51); Absolute Neutrophil Count 3.7 X10^3/uL (2.0-7.7); Basophil# 0.06 X10^3/uL; Basophil% 0.8 % (0-1); Eosinophils% 2.5 % (0-5); Hematocrit 31.7 % (37-47); Hemoglobin 10.3 g/dL (12.0-15.0); Lymphocyte # 3.18 X10^3/ul (0.83-4.51); Mean Corp Hgb Conc 32.5 g/dL (32-36); Mean Corpuscular Volume 95.5 fL (81-99); Mean Platelet Vol. 9.7 fl (6.2-12.0); Monocyte# 0.74 X10^3/uL; Monocyte% 9.3 % (0-10); NRBC Flagged by Analyzer 0 % (0-5); Neutrophil # 3.73 X10^3/uL (2.7-7.7); Neutrophil % 46.9 % (47-70); Platelet Count 326 K/mm3 (150-450); RBC Distribution Width CV 13.4 % (11.6-14.6); RBC Distribution Width SD 47.4 fl (35.1-43.9); Red Blood Count 3.32 M/mm3 (4.2-5.4)
[2024-08-01 14:32] LABS: Color, Urine Straw (Yellow); Glucose, Dipstick Normal (Normal); Ketone-Dipstick Negative (Negative); Leukocyte Esterase-Dipstick Negative /ul (Negative); Nitrite-Dipstick Negative (Negative); Occult Blood-Urine Negative /ul (Negative); Protein-Dipstick Negative (Negative); Specific Gravity, Urine 1.005 (1.002-1.030); Urine Bilirubin Dipstick Negative (Negative); Urine Clarity Clear (Clear); Urine Urobilinogen Normal (Normal)
[2024-08-01 14:40] VITALS: BP 101/86; PULSE 68; RESP 16; O2SAT 98
[2024-08-01 14:40] LABS: Squamous Epithelial Cells - UA 0-5 SEEN /hpf (5-10)
[2024-08-01 14:47] LABS: BNP,B-Type NATRIURETIC PEPTIDE 243.6 pg/mL (0-100)
[2024-08-01 14:56] LABS: ALB/GLOB Ratio 0.9 RATIO (0.9-2.4); AST(SGOT) 26 U/L (15-37); Alanine Aminotransfer ALT/SGPT 20 U/L (13-56); Albumin, Serum 3.2 g/dL (3.2-5.0); Alkaline Phosphatase 86 U/L (45-117); Anion Gap 2 (5-15); BUN 17 mg/dL (7-18); BUN/Creat Ratio 16.5 RATIO (10-20); Calcium,Total 8.4 mg/dL (8.5-10.1); Chloride 109 mmol/L (98-107); Creatinine, Serum 1.03 mg/dL (0.55-1.02); EST Glomerular Filtration Rate 56 mL/min (>60); Est Glom Filt Rate - Afr Amer 68 mL/min (>60); Globulin 3.6 g/dL (2.2-4.2); Glucose 92 mg/dL (74-106); Lipase 28 U/L (13-75); Potassium 4.6 mmol/L (3.5-5.1); Protein, Total 6.8 g/dL (6.4-8.2); Sodium Level 139 mmol/L (136-145); T4 Free Direct 1.01 ng/dL (0.76-1.46); Troponin-I HS 3 pg/mL (3.0-54.0)
--- NOTE | 2024-08-01 15:10 | RAD_ITS ---
INDICATION: Edema EXAMINATION/TECHNIQUE: X-RAY - XR Chest 2 Views COMPARISON: 12/13/2023 FINDINGS: LINES/DEVICES: None. LUNGS: No consolidation, edema or effusion. No pneumothorax. MEDIASTINUM AND CARDIOVASCULAR STRUCTURES: Cardiac silhouette not enlarged. Central airways and mediastinal contour are unremarkable. BONES AND SOFT TISSUES: No acute changes. RAD/Chest PA and Lateral IMPRESSION: No radiographic evidence of acute cardiopulmonary disease. Electronically Signed: Lex Borrero MD at 15:49 EST ,
[2024-08-01 16:00] VITALS: BP 145/69; PULSE 64; RESP 18; O2SAT 97
== END 2024-08-01 16:44 | disposition home or self-care (01) ==
PROVIDERS: Emergency Provider Surgery; Visit Provider Surgery
DX: R20.0 Anesthesia of skin (principal); N18.30 Chronic kidney disease, stage 3 unspecified; E78.5 Hyperlipidemia, unspecified; M79.89 Other specified soft tissue disorders; D64.9 Anemia, unspecified; K58.9 Irritable bowel syndrome, unspecified; R10.84 Generalized abdominal pain; E03.9 Hypothyroidism, unspecified; F41.9 Anxiety disorder, unspecified; Z79.01 Long term (current) use of anticoagulants; Z79.890 Hormone replacement therapy; Z79.899 Other long term (current) drug therapy; Z86.718 Personal history of other venous thrombosis and embolism
CPT/HCPCS: 71046; 74177; 80053; 81001; 83690; 83880; 84439; 84443; 84484; 85025; 93005; 99285; Q9967; A4216

== ENCOUNTER 2024-09-13 20:49 | Inpatient (IN) | payer MEDICARE, SELFPAY ==
[2024-09-13] VITALS (11 sets, daily range): BP systolic 138–208; BP diastolic 67–112; PULSE 61–87; RESP 8–25; TEMP 36.3–37.1; O2SAT 99–100; BMI 26.4
--- NOTE | 2024-09-13 20:54 | EKG12_ITS ---
Test Reason : CP Blood Pressure : */* mmHG Vent. Rate : 86 BPM Atrial Rate : 86 BPM P-R Int : 150 ms QRS Dur : 68 ms QT Int : 382 ms P-R-T Axes : 67 21 57 degrees QTcB Int : 457 ms Normal sinus rhythm Possible Left atrial enlargement Borderline ECG Confirmed by KARISSA KAPADIA, BUCKY ([id number]), film editor AMADOR CAMPOS ([id number]) on 09/15/2024 8:41:40 AM Referred By: LARA Confirmed By: BUCKY HANCOCK MD
[2024-09-13 21:13] LABS: Absolute Lymphocyte Count 3.02 X10^3/uL (0.83-4.51); Absolute Neutrophil Count 7.2 X10^3/uL (2.0-7.7); Basophil% 0.9 % (0-1); Eosinophil# 0.22 X10^3/uL; Hematocrit 38.2 % (37-47); Hemoglobin 12.6 g/dL (12.0-15.0); Lymphocyte # 3.02 X10^3/ul (0.83-4.51); Lymphocyte % 26.9 % (19-41); Mean Corpuscular Hgb 30.2 pg (27.0-32.0); Mean Corpuscular Volume 91.6 fL (81-99); Mean Platelet Vol. 9.3 fl (6.2-12.0); Monocyte# 0.63 X10^3/uL; Monocyte% 5.6 % (0-10); NRBC Flagged by Analyzer 0 % (0-5); Neutrophil # 7.19 X10^3/uL (2.7-7.7); Platelet Count 498 K/mm3 (150-450); RBC Distribution Width SD 43.3 fl (35.1-43.9); Red Blood Count 4.17 M/mm3 (4.2-5.4); White Blood Count 11.2 K/mm3 (4.4-11.0)
--- NOTE | 2024-09-13 21:33 | CT_ITS ---
INDICATION: Chest pain, abdominal pain EXAMINATION: CTA CHEST, ABDOMEN AND PELVIS WITH CONTRAST - TECHNIQUE: A CTA of the chest, abdomen, and pelvis is obtained with sagittal and coronal reconstructed MIP views. Three-dimensional surface rendered sequence of the thoracic and abdominal aorta was obtained. A radiation dose optimization technique was used for this scan. The protocol utilizes one or more of the following dose reduction techniques: automated exposure control, adjustment of mA and/or kV according to patient size,and/or use of iterative reconstruction technique. 100 mL of Isovue-370. Oral contrast: None. COMPARISON: August 01, 2024 CT abdomen and pelvis FINDINGS: CT CHEST: THORACIC AORTA: No atheromatous disease, no aneurysmal changes or dissection. ABDOMINAL AORTA: No aneurysm or dissection. No significant atheromatous disease. The iliac arteries are unremarkable. LUNGS: The lungs are well-expanded without acute or chronic changes. No effusions or pneumothorax. MEDIASTINUM: The thyroid gland is normal. No mediastinal or hilar adenopathy. HEART: Heart is normal size. No pericardial effusion. No CAD. CT ABDOMEN AND PELVIS: LIVER: The liver enhances homogeneously. No masses identified. GALLBLADDER: Gallbladder is not identified. Intra and extrahepatic bile ducts appear prominent. SPLEEN: Normal. PANCREAS: No masses or inflammation. Prominent pancreatic duct measures up to 4 mm. ADRENAL GLANDS: Normal. KIDNEYS AND URETERS: The kidneys both enhance appropriately. There are normal size and shape. No hydronephrosis or nephrolithiasis. Simple 12 mm right renal cortical cyst. No further follow-up required as appears simple/benign. STOMACH: Normal. SMALL BOWEL: Dilated small bowel with air-fluid levels and midsegment anastomotic sutures. MESENTERY: No mesenteric inflammation. No ascites. COLON: No significant diverticulosis, masses or inflammation. Air-fluid levels consistent with nonspecific diarrheal disease. The colon otherwise is normal. There is a large fatty ileocecal valve. APPENDIX: Not identified. IVC: Normal. RETROPERITONEUM: No retroperitoneal lymphadenopathy. PELVIC STRUCTURES: Normal bladder. SOFT TISSUES ABDOMEN: Fat-containing umbilical hernia. SOFT TISSUE CHEST: The extrathoracic soft tissues are normal. BONES: Mild kyphoscoliosis. CT/CTA Chst, Abd, Pel W and/or WO IMPRESSION: Dilated intra and extrahepatic bile ducts and pancreatic duct. Recommend HIDA scan and/or MRCP. Ileus and postop changes as above. Normal contrast-enhanced CT of the chest. Normal contrast-enhanced CT of the abdomen and pelvis. Electronically Signed: David Park MD at 22:54 EST ,
--- NOTE | 2024-09-13 21:35 | EX.ED.DYSGE1 ---
HPI <Dr. Mike Fraser DO - Last Filed: 09/14/24 15:10> History of Present Illness Chief Complaint: Abd Pain Informant: patient Onset/Context/Timing Onset: Days (10) Context: Gradual Onset Timing: Continuous Quality: Tightness Location: Chest and abdomen Worsened by: Albuterol inhaler Relieved by: Nothing Narrative Narrative: Patient presents with abdominal pain that has been getting worse over the past 10 days. Patient states that today she also try having some pain in her chest and shortness of breath. Patient describes her pain as a tightness. Patient states she took her albuterol inhaler while she was at home earlier today and her breathing became worse after this. Patient admits to some subjective chills. Patient admits to some nausea but denies any vomiting. Patient admits to some urinary frequency. Patient states her pain radiates into her back. Patient also admits to a headache. [facility] <Dr. Mike Fraser DO - Last Filed: 09/14/24 15:10> [facility] Medical History (Updated 09/14/24 @ 04:[address] Gerson Peters DO) Irritable bowel Scarlet fever Depression Hyperthyroidism DVT (deep venous thrombosis) CKD (chronic kidney disease), stage III Chronic anemia History of venous thromboembolism History of small bowel obstruction GERD (gastroesophageal reflux disease) HLD (hyperlipidemia) Anxiety and depression Hypothyroidism Home Medications ?Medication ?Instructions ?Recorded ?Last Taken ?Type alprazolam 1 mg tablet (Xanax) 1 mg PO BID anxiety 12/11/22 Unknown History bupropion HCl 150 mg 24 hr tablet, 150 mg PO BID mental health 12/11/22 Unknown History extended release esomeprazole magnesium 20 mg 20 mg PO DAILY reflux 12/11/22 Unknown History capsule,delayed release ezetimibe 10 mg tablet 10 mg PO DAILY cholesterol 12/11/22 Unknown History levothyroxine 50 mcg tablet 50 mcg PO DAILY thyroid 12/11/22 Unknown History zolpidem 10 mg tablet (Ambien) 10 mg PO QHS sleep 12/11/22 Unknown History docusate sodium 100 mg capsule 100 mg PO BID stool softner 03/31/23 Unknown History budesonide 160 mcg-glycopyr 9 2 inh inhalation BID breathing 12/06/23 Unknown History mcg-formot 4.8 mcg/actuation HFA inhaler (Breztri Aerosphere) buspirone 15 mg tablet 7.5 mg PO BID mental health 12/06/23 Unknown History polyethylene glycol 3350 17 17 g PO BID bowels 12/06/23 Unknown History gram/dose oral powder (Miralax) ropinirole 0.5 mg tablet 0.5 mg PO BID restless legs 12/06/23 Unknown History warfarin 5 mg tablet 5 mg PO DAILY blood thinner 12/06/23 Unknown History ondansetron HCl 4 mg tablet 4 mg PO Q6H PRN Nausea #10 tabs 12/13/23 Unknown Rx furosemide 20 mg tablet 20 mg PO DAILY 09/14/24 Unknown History tramadol 50 mg tablet 50 mg PO Q6H PRN PRN pain 09/14/24 Unknown History Allergy/AdvReac Type Severity Reaction Status Date / Time cefdinir (From Omnicef) Allergy Hives Verified 09/13/24 20:52 codeine Allergy NEEDS Verified 09/13/24 20:52 FOLLOW-UP latex Allergy Anaphylaxis Verified 09/13/24 20:52 prochlorperazine (From Allergy NEEDS Verified 09/13/24 20:52 Compazine) FOLLOW-UP shellfish derived Allergy Anaphylaxis Verified 09/13/24 20:52 levofloxacin (From Levaquin) AdvReac Vomiting Verified 09/13/24 20:52 Yqatemo-FAH-XgG Reductase AdvReac NEEDS Verified 09/13/24 20:52 Inhibitor FOLLOW-UP Family History Mother Heart disease COPD (chronic obstructive pulmonary disease) Father Heart disease Hypertension CAD (coronary artery disease) Myocardial infarction Surgical History History of total abdominal hysterectomy History of colon surgery History of appendectomy History of cholecystectomy Social History household members: none Smoking Status: Never smoker alcohol intake: never substance use type: does not use ROS <Dr. Mike Fraser DO - Last Filed: 09/14/24 15:10> ROS ED Constitutional Constitutional ED: Reports chills and subjective; Denies fever(s) Eyes Eyes: Denies blurry vision or change in vision ENT ENT ED: Denies rhinorrhea or sore throat Cardiovascular Cardiovascular: Reports chest pain; Denies palpitations Respiratory/Chest Respiratory/Chest: Reports dyspnea; Denies cough Gastrointestinal Gastrointestinal: Reports abdominal pain and nausea; Denies vomiting Genitourinary Genitourinary ED: Reports urinary frequency; Denies dysuria or hematuria Musculoskeletal Musculoskeletal: Reports back pain; Denies neck pain Integumentary Denies abscess or rash Neurologic Neurologic: Reports headache(s); Denies weakness Allergic/Immunologic Allergic/Immunologic ED: Denies mouth swelling or urticaria EXAM <Dr. Mike Fraser, DO - Last Filed: 09/14/24 15:10> Physical Exam Const Vital Signs: 09/13/24 20:52 09/13/24 20:54 09/13/24 21:50 Temperature 97.4 F L 98.7 F Temperature Source Temporal Oral Pulse Rate 87 66 Respiratory Rate 18 15 Blood Pressure 179/96 H 172/107 H Blood Pressure Mean 123 128 Pulse Ox 99 100 Oxygen Delivery Method Room Air Room Air Room Air 09/13/24 22:00 09/13/24 22:22 09/13/24 22:34 Temperature Temperature Source Pulse Rate 68 69 Respiratory Rate 8 L 12 Blood Pressure 208/80 H 208/80 H Blood Pressure Mean 122 117 Pulse Ox 100 100 Oxygen Delivery Method Room Air 09/13/24 22:35 09/13/24 22:45 09/13/24 23:00 Temperature Temperature Source Pulse Rate 80 64 63 Respiratory Rate 15 14 Blood Pressure 154/88 H Blood Pressure Mean 106 Pulse Ox 100 100 Oxygen Delivery Method 09/13/24 23:00 09/13/24 23:15 09/13/24 23:30 Temperature Temperature Source Pulse Rate 63 61 62 Respiratory Rate 14 25 H 22 H Blood Pressure 142/85 H 138/84 H 158/67 H Blood Pressure Mean 103 99 94 Pulse Ox 100 100 100 Oxygen Delivery Method 09/13/24 23:45 09/14/24 00:00 09/14/24 00:15 Temperature Temperature Source Pulse Rate 70 73 61 Respiratory Rate 10 L 18 20 H Blood Pressure 141/112 H 184/105 H Blood Pressure Mean 122 121 Pulse Ox 100 100 100 Oxygen Delivery Method 09/14/24 00:15 09/14/24 00:30 09/14/24 00:45 Temperature Temperature Source Pulse Rate 61 69 Respiratory Rate 20 H 20 H 22 H Blood Pressure 160/106 H 179/103 H 187/116 H Blood Pressure Mean 115 122 134 Pulse Ox 100 100 99 Oxygen Delivery Method 09/14/24 01:00 09/14/24 01:15 09/14/24 01:30 Temperature Temperature Source Pulse Rate 66 66 67 Respiratory Rate 17 20 H 13 Blood Pressure 155/86 H 165/71 H Blood Pressure Mean 104 99 Pulse Ox 99 100 98 Oxygen Delivery Method 09/14/24 01:45 09/14/24 02:00 09/14/24 02:15 Temperature Temperature Source Pulse Rate 70 70 68 Respiratory Rate 15 16 13 Blood Pressure 174/68 H 169/73 H 171/69 H Blood Pressure Mean 99 101 99 Pulse Ox 100 100 100 Oxygen Delivery Method 09/14/24 02:30 09/14/24 02:45 09/14/24 03:00 Temperature Temperature Source Pulse Rate 76 69 72 Respiratory Rate 18 22 H 14 Blood Pressure 169/84 H 164/81 H 162/69 H Blood Pressure Mean 111 105 100 Pulse Ox 100 100 100 Oxygen Delivery Method Room Air 09/14/24 03:00 09/14/24 03:12 09/14/24 03:15 Temperature 98.7 F Temperature Source Pulse Rate 73 72 100 Respiratory Rate 18 14 16 Blood Pressure 162/69 H 162/69 H Blood Pressure Mean 97 100 Pulse Ox 98 100 99 Oxygen Delivery Method 09/14/24 03:30 09/14/24 03:31 09/14/24 03:45 Temperature Temperature Source Pulse Rate 77 68 69 Respiratory Rate 20 H 15 15 Blood Pressure 167/76 H Blood Pressure Mean 101 Pulse Ox 99 99 100 Oxygen Delivery Method 09/14/24 04:00 Temperature Temperature Source Pulse Rate 67 Respiratory Rate 20 H Blood Pressure 160/67 H Blood Pressure Mean 94 Pulse Ox 100 Oxygen Delivery Method Positive well nourished and well developed General Appearance ED: well developed and NAD HEENT Reports moist mucous membranes Neck supple and no JVD Resp normal respiratory effort and clear to auscultation bilaterally Auscultation: diminished lung sounds diffuse Cardio regular rate and regular rhythm GI non-distended Palpation: soft and tender epigastric, LLQ, LUQ, periumbilical and suprapubic; Negative for guarding or rebound tenderness present Neuro oriented x3, CN's II-XII intact bilaterally and no sensory deficits noted Sensorium / Orientation: alert Motor Exam: strength 5/5 throughout Psych mental status grossly normal <Dr. Reg Lamb DO - Last Filed: 09/14/24 04:13> Physical Exam Const Vital Signs: 09/13/24 20:52 09/13/24 20:54 09/13/24 21:50 Temperature 97.4 F L 98.7 F Temperature Source Temporal Oral Pulse Rate 87 66 Respiratory Rate 18 15 Blood Pressure 179/96 H 172/107 H Blood Pressure Mean 123 128 Pulse Ox 99 100 Oxygen Delivery Method Room Air Room Air Room Air 09/13/24 22:00 09/13/24 22:22 09/13/24 22:34 Temperature Temperature Source Pulse Rate 68 69 Respiratory Rate 8 L 12 Blood Pressure 208/80 H 208/80 H Blood Pressure Mean 122 117 Pulse Ox 100 100 Oxygen Delivery Method Room Air 09/13/24 22:35 09/13/24 22:45 09/13/24 23:00 Temperature Temperature Source Pulse Rate 80 64 63 Respiratory Rate 15 14 Blood Pressure 154/88 H Blood Pressure Mean 106 Pulse Ox 100 100 Oxygen Delivery Method 09/13/24 23:00 09/13/24 23:15 09/13/24 23:30 Temperature Temperature Source Pulse Rate 63 61 62 Respiratory Rate 14 25 H 22 H Blood Pressure 142/85 H 138/84 H 158/67 H Blood Pressure Mean 103 99 94 Pulse Ox 100 100 100 Oxygen Delivery Method 09/13/24 23:45 09/14/24 00:00 09/14/24 00:15 Temperature Temperature Source Pulse Rate 70 73 61 Respiratory Rate 10 L 18 20 H Blood Pressure 141/112 H 184/105 H Blood Pressure Mean 122 121 Pulse Ox 100 100 100 Oxygen Delivery Method 09/14/24 00:15 09/14/24 00:30 09/14/24 00:45 Temperature Temperature Source Pulse Rate 61 69 Respiratory Rate 20 H 20 H 22 H Blood Pressure 160/106 H 179/103 H 187/116 H Blood Pressure Mean 115 122 134 Pulse Ox 100 100 99 Oxygen Delivery Method 09/14/24 01:00 09/14/24 01:15 09/14/24 01:30 Temperature Temperature Source Pulse Rate 66 66 67 Respiratory Rate 17 20 H 13 Blood Pressure 155/86 H 165/71 H Blood Pressure Mean 104 99 Pulse Ox 99 100 98 Oxygen Delivery Method 09/14/24 01:45 09/14/24 02:00 09/14/24 02:15 Temperature Temperature Source Pulse Rate 70 70 68 Respiratory Rate 15 16 13 Blood Pressure 174/68 H 169/73 H 171/69 H Blood Pressure Mean 99 101 99 Pulse Ox 100 100 100 Oxygen Delivery Method 09/14/24 02:30 09/14/24 02:45 09/14/24 03:00 Temperature Temperature Source Pulse Rate 76 69 72 Respiratory Rate 18 22 H 14 Blood Pressure 169/84 H 164/81 H 162/69 H Blood Pressure Mean 111 105 100 Pulse Ox 100 100 100 Oxygen Delivery Method Room Air 09/14/24 03:00 09/14/24 03:12 09/14/24 03:15 Temperature 98.7 F Temperature Source Pulse Rate 73 72 100 Respiratory Rate 18 14 16 Blood Pressure 162/69 H 162/69 H Blood Pressure Mean 97 100 Pulse Ox 98 100 99 Oxygen Delivery Method 09/14/24 03:30 09/14/24 03:31 09/14/24 03:45 Temperature Temperature Source Pulse Rate 77 68 69 Respiratory Rate 20 H 15 15 Blood Pressure 167/76 H Blood Pressure Mean 101 Pulse Ox 99 99 100 Oxygen Delivery Method 09/14/24 04:00 Temperature Temperature Source Pulse Rate 67 Respiratory Rate 20 H Blood Pressure 160/67 H Blood Pressure Mean 94 Pulse Ox 100 Oxygen Delivery Method [facility] <Dr. Mike Fraser, DO - Last Filed: 09/14/24 15:10> [facility] Narrative Medical decision making narrative: Differential diagnosis includes cardiac dysrhythmia, cardiac ischemia, pneumonia, pulmonary embolism, aortic dissection, bowel obstruction, perforation, diverticulitis, ischemic colitis, ureteral calculus, pyelonephritis, infectious colitis, and pancreatitis. CBC will be obtained to assess for leukocytosis and anemia. Basic metabolic profile will be obtained to assess for electrolyte abnormality and renal function. High-sensitivity troponin will be obtained to assess for cardiac ischemia. Lipase will be obtained to assess for pancreatitis. Urinalysis will be obtained to assess for urinary tract infection and hematuria. CT of the chest, abdomen, and pelvis will be obtained to assess for pulmonary embolism, aortic dissection, bowel obstruction, perforation, diverticulitis, and colitis. Liver profile will be obtained to assess for hepatic function. Lactate will be obtained to assess for ischemic bowel. Lab Data Attestation: I reviewed the patient's lab results. Lab results narrative: CBC was reviewed. There is a slight leukocytosis of 11.2. The remainder is within normal limits. Basic metabolic profile was reviewed. Creatinine was slightly elevated at 1.16. The remainder is within normal limits. High-sensitivity troponin was reviewed and was normal at 8. PT with INR was reviewed and was within normal limits. Lipase was reviewed and was normal at 32. Urinalysis was reviewed. There is no evidence of urinary tract infection or hematuria. Liver profile was reviewed and was within normal limits. Labs: Laboratory Results - last 24 hr 09/13/24 09/13/24 09/13/24 21:00 22:09 22:35 WBC 11.2 H RBC 4.17 L Hgb 12.6 Hct 38.2 MCV 91.6 MCH 30.2 MCHC 33.0 RDW Std Deviation 43.3 RDW Coeff of [place] 13.0 Plt Count 498 H MPV 9.3 Immature Gran % (Auto) 0.600 Neut % (Auto) 64.0 Lymph % (Auto) 26.9 [place] % (Auto) 5.6 Eos % (Auto) 2.0 Baso % (Auto) 0.9 Absolute Neuts (auto) 7.2 Absolute Lymphs (auto) 3.02 Nucleated RBC % 0 PT 13.6 INR 1.0 Sodium 138 Potassium 4.3 Chloride 106 Carbon Dioxide 23.0 Anion Gap 9 BUN 18 Creatinine 1.16 H Estim Creat Clear Calc 36.88 Est GFR (MDRD) Af Amer 59 L Est GFR (MDRD) Non-Af 49 L BUN/Creatinine Ratio 15.5 Glucose 105 Lactic Acid Calcium 9.4 Total Bilirubin Direct Bilirubin AST ALT Alkaline Phosphatase Troponin I High Sens 8 Total Protein Albumin Globulin Triglycerides Cholesterol LDL Cholesterol VLDL Cholesterol HDL Cholesterol Lipase 32 TSH Urine Color Cancelled Urine Clarity Cancelled Urine pH Cancelled Ur Specific [place] Cancelled U Specif Grav (Refrac) Cancelled Urine Protein Cancelled Urine Glucose (UA) Cancelled Urine Ketones Cancelled Urine Occult Blood Cancelled Urine Nitrite Cancelled Urine Bilirubin Cancelled Urine Urobilinogen Cancelled Ur Leukocyte Esterase Cancelled Urine RBC Cancelled Urine WBC Cancelled Ur Squamous Epith Cells Cancelled Ur Transition Epith Cell Cancelled Ur Renal Epithelial Cell Cancelled Calcium Oxalate Crystal Cancelled Uric Acid Crystals Cancelled Triple Phos Crystals Cancelled Other Crystals Cancelled Amorphous Sediment Cancelled Urine Bacteria Cancelled Hyaline Casts Cancelled Fine Granular Casts Cancelled Coarse Granular Casts Cancelled Waxy Casts Cancelled RBC Casts Cancelled WBC Casts Cancelled Urine Mucus Cancelled Urine Trichomonas Cancelled Urine Yeast Cancelled 09/13/24 09/13/24 09/14/24 23:25 23:42 01:24 WBC RBC Hgb Hct MCV MCH MCHC RDW Std Deviation RDW Coeff of [place] Plt Count MPV Immature Gran % (Auto) Neut % (Auto) Lymph % (Auto) [place] % (Auto) Eos % (Auto) Baso % (Auto) Absolute Neuts (auto) Absolute Lymphs (auto) Nucleated RBC % PT INR Sodium Potassium Chloride Carbon Dioxide Anion Gap BUN Creatinine Estim Creat Clear Calc Est GFR (MDRD) Af Amer Est GFR (MDRD) Non-Af BUN/Creatinine Ratio Glucose Lactic Acid 1.0 Calcium Total Bilirubin 0.50 Direct Bilirubin 0.11 AST 28 ALT 23 Alkaline Phosphatase 87 Troponin I High Sens 7 Total Protein 6.5 Albumin 2.9 L Globulin 3.6 Triglycerides 76 Cholesterol 207 H LDL Cholesterol 132 H VLDL Cholesterol 15 HDL Cholesterol 60 Lipase 34 TSH 14.000 H Urine Color Straw Urine Clarity Sl. Cloudy Urine pH 7.0 Ur Specific [place] 1.010 U Specif Grav (Refrac) Urine Protein Negative Urine Glucose (UA) Normal Urine Ketones Negative Urine Occult Blood 10 H Urine Nitrite Negative Urine Bilirubin Negative Urine Urobilinogen Normal Ur Leukocyte Esterase 25 H Urine RBC 0-5 SEEN Urine WBC 0-5 SEEN Ur Squamous Epith Cells 0-5 SEEN Ur Transition Epith Cell 0-5 SEEN Ur Renal Epithelial Cell Calcium Oxalate Crystal Uric Acid Crystals Triple Phos Crystals Other Crystals Amorphous Sediment Urine Bacteria RARE Hyaline Casts Fine Granular Casts Coarse Granular Casts Waxy Casts RBC Casts WBC Casts Urine Mucus 0 SEEN Urine Trichomonas Urine Yeast Radiography Diagnostic Testing: Clinical Impression(s) from Imaging Studies Chest/Abdomen/Pelvis CTA 09/13/24 21:33 IMPRESSION: Dilated intra and extrahepatic bile ducts and pancreatic duct. Recommend HIDA scan and/or MRCP. Ileus and postop changes as above. Normal contrast-enhanced CT of the chest. Normal contrast-enhanced CT of the abdomen and pelvis. Electronically Signed: David Park MD at 22:54 EST , CT of the chest, abdomen, and pelvis was obtained. There is no evidence of pulmonary embolism or aortic dissection. There are dilated intra and extrahepatic bile ducts and pancreatic duct. There are dilated small bowel with air-fluid levels consistent with ileus. There is also some air-fluid levels noted in the colon consistent with nonspecific diarrhea disease. There is no evidence of diverticulitis. There is no evidence of obstruction. This was interpreted by the radiologist and was also independently reviewed by myself. EKG Initial EKG: Attestation: I personally reviewed and interpreted this EKG as follows: Interpretation: Sinus Rhythm (86) and No Acute Injury Pattern Comments: EKG was obtained. On my independent interpretation, it showed a normal sinus rhythm with a rate of 86. TX interval, QRS interval, and QTc intervals were all normal. [place] was normal. There are no acute ST or T wave changes. Prior EKG tracings: available for review Prior: Unchanged (08/01/2024) Management Discussion w/another healthcare provider: [employer] (Dr. Umanzor from general surgery) Treatment and Re-Evaluation :: Patient was given IV fluids, morphine, and Zofran. Patient was still having pain on reevaluation. Patient was given a repeat dose of morphine and Zofran. Patient was also given a dose of Bentyl. Patient had minimal improvement with this. Patient was given a dose of Dilaudid. Patient was advised of her findings. I do not see any evidence of bowel obstruction at this time. I do not see anything requiring emergency surgery. However, given her persistent pain, case was discussed with Dr. Umanzor from general surgery. He is agreeable to having patient admitted here as long as the lactate is normal and the patient understands that she will not have any surgery here and that if she would require surgery she would need to be transferred to [facility] at that time. Case will be discussed with the hospitalist. Patient understands and is agreeable with the plan. All questions were answered. Patient was signed out to me while awaiting case discussion with the hospitalist. The patient has had a CTA scan of her chest abdomen and pelvis with contrast which did not show pulmonary embolus dissection obstruction abscess perforation or ischemic gut. It did show dilation of her common bile duct but her liver enzymes are normal. The general surgeon recommends admission for HIDA scan and/or MRCP to further assess the cause of her pain. The patient understands that if the workup is negative she will be discharged home but if a delineates any need for surgery the shot to be transferred to the [facility] where her previous surgeries were performed. The patient states she understands this and is agreeable to the plan of care. The case was discussed with the hospitalist who does agree to accept the patient and therefore should be admitted to his service in stable condition <Dr. Reg Lamb, DO - Last Filed: 09/14/24 04:13> [facility] Lab Data Labs: Laboratory Results - last 24 hr 09/13/24 09/13/24 09/13/24 21:00 22:09 22:35 WBC 11.2 H RBC 4.17 L Hgb 12.6 Hct 38.2 MCV 91.6 MCH 30.2 MCHC 33.0 RDW Std Deviation 43.3 RDW Coeff of [place] 13.0 Plt Count 498 H MPV 9.3 Immature Gran % (Auto) 0.600 Neut % (Auto) 64.0 Lymph % (Auto) 26.9 [place] % (Auto) 5.6 Eos % (Auto) 2.0 Baso % (Auto) 0.9 Absolute Neuts (auto) 7.2 Absolute Lymphs (auto) 3.02 Nucleated RBC % 0 PT 13.6 INR 1.0 Sodium 138 Potassium 4.3 Chloride 106 Carbon Dioxide 23.0 Anion Gap 9 BUN 18 Creatinine 1.16 H Estim Creat Clear Calc 36.88 Est GFR (MDRD) Af Amer 59 L Est GFR (MDRD) Non-Af 49 L BUN/Creatinine Ratio 15.5 Glucose 105 Lactic Acid Calcium 9.4 Total Bilirubin Direct Bilirubin AST ALT Alkaline Phosphatase Troponin I High Sens 8 Total Protein Albumin Globulin Triglycerides Cholesterol LDL Cholesterol VLDL Cholesterol HDL Cholesterol Lipase 32 TSH Urine Color Cancelled Urine Clarity Cancelled Urine pH Cancelled Ur Specific [place] Cancelled U Specif Grav (Refrac) Cancelled Urine Protein Cancelled Urine Glucose (UA) Cancelled Urine Ketones Cancelled Urine Occult Blood Cancelled Urine Nitrite Cancelled Urine Bilirubin Cancelled Urine Urobilinogen Cancelled Ur Leukocyte Esterase Cancelled Urine RBC Cancelled Urine WBC Cancelled Ur Squamous Epith Cells Cancelled Ur Transition Epith Cell Cancelled Ur Renal Epithelial Cell Cancelled Calcium Oxalate Crystal Cancelled Uric Acid Crystals Cancelled Triple Phos Crystals Cancelled Other Crystals Cancelled Amorphous Sediment Cancelled Urine Bacteria Cancelled Hyaline Casts Cancelled Fine Granular Casts Cancelled Coarse Granular Casts Cancelled Waxy Casts Cancelled RBC Casts Cancelled WBC Casts Cancelled Urine Mucus Cancelled Urine Trichomonas Cancelled Urine Yeast Cancelled 09/13/24 09/13/24 09/14/24 23:25 23:42 01:24 WBC RBC Hgb Hct MCV MCH MCHC RDW Std Deviation RDW Coeff of [place] Plt Count MPV Immature Gran % (Auto) Neut % (Auto) Lymph % (Auto) [place] % (Auto) Eos % (Auto) Baso % (Auto) Absolute Neuts (auto) Absolute Lymphs (auto) Nucleated RBC % PT INR Sodium Potassium Chloride Carbon Dioxide Anion Gap BUN Creatinine Estim Creat Clear Calc Est GFR (MDRD) Af Amer Est GFR (MDRD) Non-Af BUN/Creatinine Ratio Glucose Lactic Acid 1.0 Calcium Total Bilirubin 0.50 Direct Bilirubin 0.11 AST 28 ALT 23 Alkaline Phosphatase 87 Troponin I High Sens 7 Total Protein 6.5 Albumin 2.9 L Globulin 3.6 Triglycerides 76 Cholesterol 207 H LDL Cholesterol 132 H VLDL Cholesterol 15 HDL Cholesterol 60 Lipase 34 TSH 14.000 H Urine Color Straw Urine Clarity Sl. Cloudy Urine pH 7.0 Ur Specific [place] 1.010 U Specif Grav (Refrac) Urine Protein Negative Urine Glucose (UA) Normal Urine Ketones Negative Urine Occult Blood 10 H Urine Nitrite Negative Urine Bilirubin Negative Urine Urobilinogen Normal Ur Leukocyte Esterase 25 H Urine RBC 0-5 SEEN Urine WBC 0-5 SEEN Ur Squamous Epith Cells 0-5 SEEN Ur Transition Epith Cell 0-5 SEEN Ur Renal Epithelial Cell Calcium Oxalate Crystal Uric Acid Crystals Triple Phos Crystals Other Crystals Amorphous Sediment Urine Bacteria RARE Hyaline Casts Fine Granular Casts Coarse Granular Casts Waxy Casts RBC Casts WBC Casts Urine Mucus 0 SEEN Urine Trichomonas Urine Yeast Radiography Diagnostic Testing: Clinical Impression(s) from Imaging Studies Chest/Abdomen/Pelvis CTA 09/13/24 21:33 IMPRESSION: Dilated intra and extrahepatic bile ducts and pancreatic duct. Recommend HIDA scan and/or MRCP. Ileus and postop changes as above. Normal contrast-enhanced CT of the chest. Normal contrast-enhanced CT of the abdomen and pelvis. Electronically Signed: David Park MD at 22:54 EST , Management Discussion w/another healthcare provider: Hospitalist Treatment and Re-Evaluation :: Patient was given IV fluids, morphine, and Zofran. Patient was still having pain on reevaluation. Patient was given a repeat dose of morphine and Zofran. Patient was also given a dose of Bentyl. Patient had minimal improvement with this. Patient was given a dose of Dilaudid. Patient was advised of her findings. I do not see any evidence of bowel obstruction at this time. I do not see anything requiring emergency surgery. However, given her persistent pain, case was discussed with Dr. Umanzor from general surgery. He is agreeable to having patient admitted here as long as the lactate is normal and the patient understands that she will not have any surgery here and that if she would require surgery she would need to be transferred to [facility] at that time. Case was discussed with the hospitalist. Patient understands and is agreeable with the plan. All questions were answered. Patient was signed out to me while awaiting case discussion with the hospitalist. The patient has had a CTA scan of her chest abdomen and pelvis with contrast which did not show pulmonary embolus dissection obstruction abscess perforation or ischemic gut. It did show dilation of her common bile duct but her liver enzymes are normal. The general surgeon recommends admission for HIDA scan and/or MRCP to further assess the cause of her pain. The patient understands that if the workup is negative she will be discharged home but if a delineates any need for surgery the shot to be transferred to the [facility] where her previous surgeries were performed. The patient states she understands this and is agreeable to the plan of care. The case was discussed with the hospitalist who does agree to accept the patient and therefore should be admitted to his service in stable condition Discharge Plan Dx/Rx/DC Orders Clinical Impression: Intractable abdominal pain, Dilation of common bile duct, Current use of skilled nursing anticoagulation Disposition Disposition: Acute Care Hospital [facility] Discharge Date/Time: 09/14/24 04:41
[2024-09-13 21:41] LABS: Anion Gap 9 (5-15); BUN 18 mg/dL (7-18); BUN/Creat Ratio 15.5 RATIO (10-20); Calcium,Total 9.4 mg/dL (8.5-10.1); Chloride 106 mmol/L (98-107); Creatinine, Serum 1.16 mg/dL (0.55-1.02); EST Glomerular Filtration Rate 49 mL/min (>60); Est Glom Filt Rate - Afr Amer 59 mL/min (>60); Estimated Creatinine Clearance 36.88 ml/min; Glucose 105 mg/dL (74-106); Potassium 4.3 mmol/L (3.5-5.1); Sodium Level 138 mmol/L (136-145); Troponin-I HS (w/2H Reflex) 8 pg/mL (3.0-54.0)
[2024-09-13] MEDS: 0.9% Normal Saline (1000mL) 1,000 ML 1000 ML IV (21:43)
[2024-09-13] MEDS: Morphine 4 MG/ML Syringe IV ×2 (21:44→23:02)
[2024-09-13] MEDS: Ondansetron 4 MG/2 ML Vial IV (21:44)
[2024-09-13 23:02] LABS: Prothrombin Time (Protime)PT. 13.6 SECONDS (11.7-14.9)
[2024-09-13 23:08] LABS: Reflex Troponin-HS? (from REC) Y
[2024-09-13 23:49] LABS: Mucous, Urine 0 SEEN /hpf (<or=2+)
[2024-09-13 23:54] LABS: Color, Urine Straw (Yellow); Glucose, Dipstick Normal (Normal); Ketone-Dipstick Negative (Negative); Leukocyte Esterase-Dipstick 25 /ul (Negative); Nitrite-Dipstick Negative (Negative); Occult Blood-Urine 10 /ul (Negative); Protein-Dipstick Negative (Negative); Urine Bilirubin Dipstick Negative (Negative); Urine Clarity Sl. Cloudy (Clear); Urine Urobilinogen Normal (Normal)
[2024-09-13] MEDS: Dicyclomine 20 MG/2 ML Vial IM (23:59)
[2024-09-14] VITALS (27 sets, daily range): BP systolic 97–187; BP diastolic 67–116; PULSE 61–100; RESP 13–22; TEMP 36.6–37.1; O2SAT 96–100; BMI 26.7
[2024-09-14] LABS: Troponin-I HS 7 pg/mL (3.0-54.0)
[2024-09-14 00:27] LABS: Bacteria RARE /hpf (None Seen); Red Blood Cells-Urine 0-5 SEEN /hpf (0-5); Squamous Epithelial Cells - UA 0-5 SEEN /hpf (5-10); Transitional Epithelial - Ur 0-5 SEEN /hpf (0-5); White Blood Cells 0-5 SEEN /hpf (0-5)
[2024-09-14 00:56] LABS: Lipase 32 U/L (13-75)
[2024-09-14] MEDS: HYDROmorphone 1 MG/ML Syringe 0.5 MG IV (01:12)
[2024-09-14 01:27] LABS: AST(SGOT) 28 U/L (15-37); Alanine Aminotransfer ALT/SGPT 23 U/L (13-56); Albumin, Serum 2.9 g/dL (3.2-5.0); Alkaline Phosphatase 87 U/L (45-117); Bilirubin, Direct 0.11 mg/dL (0.00-0.30); Globulin 3.6 g/dL (2.2-4.2); Protein, Total 6.5 g/dL (6.4-8.2)
--- NOTE | 2024-09-14 03:48 | PCM.HP.STD ---
[facility] - General General Date of Admission: 09/14/24 Date of Service: 09/14/24 Chief Complaint: Intractable Abdominal Pain. HPI Narrative KAITLYN ESCOBAR, is a 74 F with a past medical history of essential hypertension; furosemide, history of hyperthyroidism, hyperlipidemia; on ezetimibe with intolerance on statins, hypothyroidism; levothyroxine, history of DVT; on Coumadin, history of asthma, remote history of scarlet fever, RLS; on ropinirole, IBS, CKD; stage IIIa, chronic anemia, history of SBO, history of total abdominal hysterectomy, history of colon resection; with subsequent surgery for severe and extensive adhesions, history of appendectomy, history of cholecystectomy, depression with anxiety; on bupropion, buspirone and prn alprazolam BID, chronic insomnia; on zolpidem, GERD; on esomeprazole and OA; with chronic pain or prn tramadol q. 6 hours prn with patient followed chronically at the [facility] who presents to [facility] ER complaining of severe abdominal pain. Ms. Escobar reports her symptoms began approximately 10 days prior to admission with a gradual-onset of progressively worsening abdominal pain that was tender to palpation. She also admits to nausea and chills but denies vomiting. She states the pain is severe 10/10 and radiating into her back with an associated tension-type headache. She additionally admits to shortness of breath with a sensation of tightness in her chest that radiated into her abdomen for which she took an albuterol inhaler which actually seems to make her symptoms worse. In the ER she was noted to have CT evidence of dilated intra and extrahepatic bile ducts and pancreatic duct with radiologist recommending HIDA scan and/or MRCP with ileus and postop changes complicated by Leukocytosis of 11.2 K present on admission with uncontrolled hypertension of 179/96 mmHg present on admission with ER physician contacting general surgeon on-call who recommended patient undergo HIDA scan in a.m. with formal consultation pending in the a.m. with help appreciated in advance. She was then admitted to the PCU for ongoing care for stay that is expected to extend beyond 2 midnights. [facility] Medical History (Updated 09/14/24 @ 04:[address] Gerson Peters, ) Irritable bowel Scarlet fever Depression Hyperthyroidism DVT (deep venous thrombosis) CKD (chronic kidney disease), stage III Chronic anemia History of venous thromboembolism History of small bowel obstruction GERD (gastroesophageal reflux disease) HLD (hyperlipidemia) Anxiety and depression Hypothyroidism Home Medications ?Medication ?Instructions ?Recorded ?Last Taken ?Type alprazolam 1 mg tablet (Xanax) 1 mg PO BID anxiety 12/11/22 Unknown History bupropion HCl 150 mg 24 hr tablet, 150 mg PO BID mental health 12/11/22 Unknown History extended release esomeprazole magnesium 20 mg 20 mg PO DAILY reflux 12/11/22 Unknown History capsule,delayed release ezetimibe 10 mg tablet 10 mg PO DAILY cholesterol 12/11/22 Unknown History levothyroxine 50 mcg tablet 50 mcg PO DAILY thyroid 12/11/22 Unknown History zolpidem 10 mg tablet (Ambien) 10 mg PO QHS sleep 12/11/22 Unknown History docusate sodium 100 mg capsule 100 mg PO BID stool softner 03/31/23 Unknown History budesonide 160 mcg-glycopyr 9 2 inh inhalation BID breathing 12/06/23 Unknown History mcg-formot 4.8 mcg/actuation HFA inhaler (Breztri Aerosphere) buspirone 15 mg tablet 7.5 mg PO BID mental health 12/06/23 Unknown History polyethylene glycol 3350 17 17 g PO BID bowels 12/06/23 Unknown History gram/dose oral powder (Miralax) ropinirole 0.5 mg tablet 0.5 mg PO BID restless legs 12/06/23 Unknown History warfarin 5 mg tablet 5 mg PO DAILY blood thinner 12/06/23 Unknown History ondansetron HCl 4 mg tablet 4 mg PO Q6H PRN Nausea #10 tabs 12/13/23 Unknown Rx furosemide 20 mg tablet 20 mg PO DAILY 09/14/24 Unknown History tramadol 50 mg tablet 50 mg PO Q6H PRN PRN pain 09/14/24 Unknown History Allergy/AdvReac Type Severity Reaction Status Date / Time cefdinir (From Omnicef) Allergy Hives Verified 09/13/24 20:52 codeine Allergy NEEDS Verified 09/13/24 20:52 FOLLOW-UP latex Allergy Anaphylaxis Verified 09/13/24 20:52 prochlorperazine (From Allergy NEEDS Verified 09/13/24 20:52 Compazine) FOLLOW-UP shellfish derived Allergy Anaphylaxis Verified 09/13/24 20:52 levofloxacin (From Levaquin) AdvReac Vomiting Verified 09/13/24 20:52 Icopfqe-NNF-NiH Reductase AdvReac NEEDS Verified 09/13/24 20:52 Inhibitor FOLLOW-UP Family History Mother Heart disease COPD (chronic obstructive pulmonary disease) Father Heart disease Hypertension CAD (coronary artery disease) Myocardial infarction Surgical History History of total abdominal hysterectomy History of colon surgery History of appendectomy History of cholecystectomy Social History household members: none Smoking Status: Never smoker alcohol intake: never substance use type: does not use ROS ROS Narrative Review of Systems: Constitutional: Patient admits to chills but she denies fever. Eyes: Patient denies changes in vision or discharge from eyes. ENT: Patient denies runny nose, sore throat or ear pain. Resp: Patient admits to shortness of breath but denies cough. CV: Patient admits to pleuritic type chest pain made worse with deep breathing but she denies palpitations or heart racing. GI: Patient admits to severe abdominal pain with nausea but she denies vomiting, diarrhea or constipation. : Patient admits to urinary frequency but denies dysuria or hematuria. MSK: Patient admits to back pain primarily radiating from her abdomen. Skin: Patient denies rash, abscess or jaundice. Psych: Patient denies symptoms of uncontrolled depression or anxiety. Neuro: Patient admits to tension-type headache but she denies paresthesias or focal neurologic deficits. Allergy: Patient denies lip swelling, tongue swelling or urticaria. Hematology: Patient denies easy bleeding or easy bruisability. Endocrinology: Patient denies polyuria, polydipsia or polyphagia. 14 point review of systems otherwise negative save for positives noted above in HPI. Vital Signs Vital Signs Vital Signs: 09/13/24 20:52 09/13/24 20:54 09/13/24 21:50 Temperature 97.4 F L 98.7 F Temperature Source Temporal Oral Pulse Rate 87 66 Respiratory Rate 18 15 Blood Pressure 179/96 H 172/107 H Blood Pressure Mean 123 128 Pulse Ox 99 100 Oxygen Delivery Method Room Air Room Air Room Air 09/13/24 22:00 09/13/24 22:22 09/13/24 22:34 Temperature Temperature Source Pulse Rate 68 69 Respiratory Rate 8 L 12 Blood Pressure 208/80 H 208/80 H Blood Pressure Mean 122 117 Pulse Ox 100 100 Oxygen Delivery Method Room Air 09/13/24 22:35 09/13/24 22:45 09/13/24 23:00 Temperature Temperature Source Pulse Rate 80 64 63 Respiratory Rate 15 14 Blood Pressure 154/88 H Blood Pressure Mean 106 Pulse Ox 100 100 Oxygen Delivery Method 09/13/24 23:00 09/13/24 23:15 09/13/24 23:30 Temperature Temperature Source Pulse Rate 63 61 62 Respiratory Rate 14 25 H 22 H Blood Pressure 142/85 H 138/84 H 158/67 H Blood Pressure Mean 103 99 94 Pulse Ox 100 100 100 Oxygen Delivery Method 09/13/24 23:45 09/14/24 00:00 09/14/24 00:15 Temperature Temperature Source Pulse Rate 70 73 61 Respiratory Rate 10 L 18 20 H Blood Pressure 141/112 H 184/105 H Blood Pressure Mean 122 121 Pulse Ox 100 100 100 Oxygen Delivery Method 09/14/24 00:15 09/14/24 00:30 09/14/24 00:45 Temperature Temperature Source Pulse Rate 61 69 Respiratory Rate 20 H 20 H 22 H Blood Pressure 160/106 H 179/103 H 187/116 H Blood Pressure Mean 115 122 134 Pulse Ox 100 100 99 Oxygen Delivery Method 09/14/24 01:00 09/14/24 01:15 09/14/24 01:30 Temperature Temperature Source Pulse Rate 66 66 67 Respiratory Rate 17 20 H 13 Blood Pressure 155/86 H 165/71 H Blood Pressure Mean 104 99 Pulse Ox 99 100 98 Oxygen Delivery Method 09/14/24 01:45 09/14/24 02:00 09/14/24 03:00 Temperature Temperature Source Pulse Rate 70 70 72 Respiratory Rate 15 16 14 Blood Pressure 174/68 H 169/73 H 162/69 H Blood Pressure Mean 99 101 100 Pulse Ox 100 100 100 Oxygen Delivery Method Room Air 09/14/24 03:12 Temperature 98.7 F Temperature Source Pulse Rate 72 Respiratory Rate 14 Blood Pressure 162/69 H Blood Pressure Mean 100 Pulse Ox 100 Oxygen Delivery Method Weight Weight: 140 lb Body Mass Index (BMI) 26.4 Physical Exam Const alert, oriented x3 and average body habitus Constitutional Narrative: Mild distress noted. General Appearance: cooperative HEENT normocephalic, head/scalp atraumatic, hearing grossly normal bilaterally and moist oral mucous membranes Eyes PERRL and EOMs intact bilaterally Neck no lymphadenopathy and supple Resp normal respiratory effort, no retractions, no use of accessory muscles and clear to auscultation bilaterally Resp Narrative: Diminished lung sounds throughout. Cardio regular rate and regular rhythm GI GI Narrative: Patient has tenderness to palpation over the left-side along with suprapubic tenderness to palpation. Negative for guarding or rebound. Extremity normal to inspection, full ROM and no clubbing, cyanosis or edema Skin Skin Narrative: Patient has no evidence of rash, abscess or jaundice. Neuro oriented x3, CN's II-XII intact bilaterally, moves all extremities and no focal motor deficits Sensorium / Orientation: awake, alert, oriented to person, oriented to place and oriented to time Speech: speech normal Psych affect normal Results Medical Records Data Attestation: I reviewed the patient's medical records Lab / Micro Data Attestation: I reviewed the patient's lab results. 09/13/24 21:00 09/13/24 21:00 Labs: Laboratory Results - last 24 hr 09/13/24 21:00: WBC 11.2 H, RBC 4.17 L, Hgb 12.6, Hct 38.2, MCV 91.6, MCH 30.2, MCHC 33.0, RDW Std Deviation 43.3, RDW Coeff of [place] 13.0, Plt Count 498 H, MPV 9.3, Immature Gran % (Auto) 0.600, Neut % (Auto) 64.0, Lymph % (Auto) 26.9, [place] % (Auto) 5.6, Eos % (Auto) 2.0, Baso % (Auto) 0.9, Absolute Neuts (auto) 7.2, Absolute Lymphs (auto) 3.02, Nucleated RBC % 0, Sodium 138, Potassium 4.3, Chloride 106, Carbon Dioxide 23.0, Anion Gap 9, BUN 18, Creatinine 1.16 H, Estim Creat Clear Calc 36.88, Est GFR (MDRD) Af Amer 59 L, Est GFR (MDRD) Non-Af 49 L, BUN/Creatinine Ratio 15.5, Glucose 105, Calcium 9.4, Troponin I High Sens 8, Lipase 32 09/13/24 22:09: PT 13.6, INR 1.0 09/13/24 22:35: Urine Color Cancelled, Urine Clarity Cancelled, Urine pH Cancelled, Ur Specific [place] Cancelled, U Specif Grav (Refrac) Cancelled, Urine Protein Cancelled, Urine Glucose (UA) Cancelled, Urine Ketones Cancelled, Urine Occult Blood Cancelled, Urine Nitrite Cancelled, Urine Bilirubin Cancelled, Urine Urobilinogen Cancelled, Ur Leukocyte Esterase Cancelled, Urine RBC Cancelled, Urine WBC Cancelled, Ur Squamous Epith Cells Cancelled, Ur Transition Epith Cell Cancelled, Ur Renal Epithelial Cell Cancelled, Calcium Oxalate Crystal Cancelled, Uric Acid Crystals Cancelled, Triple Phos Crystals Cancelled, Other Crystals Cancelled, Amorphous Sediment Cancelled, Urine Bacteria Cancelled, Hyaline Casts Cancelled, Fine Granular Casts Cancelled, Coarse Granular Casts Cancelled, Waxy Casts Cancelled, RBC Casts Cancelled, WBC Casts Cancelled, Urine Mucus Cancelled, Urine Trichomonas Cancelled, Urine Yeast Cancelled 09/13/24 23:25: Total Bilirubin 0.50, Direct Bilirubin 0.11, AST 28, ALT 23, Alkaline Phosphatase 87, Troponin I High Sens 7, Total Protein 6.5, Albumin 2.9 L, Globulin 3.6 09/13/24 23:42: Urine Color Straw, Urine Clarity Sl. Cloudy, Urine pH 7.0, Ur Specific [place] 1.010, Urine Protein Negative, Urine Glucose (UA) Normal, Urine Ketones Negative, Urine Occult Blood 10 H, Urine Nitrite Negative, Urine Bilirubin Negative, Urine Urobilinogen Normal, Ur Leukocyte Esterase 25 H, Urine RBC 0-5 SEEN, Urine WBC 0-5 SEEN, Ur Squamous Epith Cells 0-5 SEEN, Ur Transition Epith Cell 0-5 SEEN, Urine Bacteria RARE, Urine Mucus 0 SEEN 09/14/24 01:24: Lactic Acid 1.0 Imaging Radiology Impression Chest/Abdomen/Pelvis CTA 09/13/24 21:33 IMPRESSION: Dilated intra and extrahepatic bile ducts and pancreatic duct. Recommend HIDA scan and/or MRCP. Ileus and postop changes as above. Normal contrast-enhanced CT of the chest. Normal contrast-enhanced CT of the abdomen and pelvis. Electronically Signed: David Park MD at 22:54 EST , Assessment & Plan Assessment/Plan (1) Common bile duct (CBD) obstruction: (2) Intractable abdominal pain: (3) Leukocytosis: QUALIFIERS: Leukocytosis type: unspecified Qualified Code(s): D72.829 - Elevated white blood cell count, unspecified (4) Uncontrolled hypertension: (5) History of venous thromboembolism: PLAN: Plan 1. CT evidence of dilated intra and extrahepatic bile ducts and pancreatic duct with radiologist recommending HIDA scan and/or MRCP with ileus and postop changes complicated by Leukocytosis of 11.2 K present on admission - Admit to PCU under aspiration precautions. Check HIDA scan recommended by general surgery. Start empiric clindamycin to prevent infection in case of underlying stone given patient's listed allergies to quinolone antibiotics and cephalosporins. Start Protonix 40 mg IV daily. Check serum lipase. Give Zofran IV as needed nausea or vomiting. Finally, general surgeon informed the ER physician that if patient requires surgery she will require transfer to the [facility]. 2. Intractable Abdominal Pain arising from #1 in the setting of known IBS and chronic pain syndrome on prn tramadol q. 6 hours - Give morphine IV prn for severe (level 6-10/10) pain. 3. Uncontrolled Hypertension complicating #1 & #2 - Give Hydralazine IV prn for systolic blood pressure greater than 160 mmHg. 4. History of DVT; on Coumadin adding to the medical complexity of #1 - #3 - Patient's INR was 1 on admission. 5. Depression with anxiety; on bupropion, buspirone and prn alprazolam BID - Hold oral medications and give lorazepam IV prn anxiety. 6. History of hypothyroidism - Check TSH and start IV levothyroxine if patient needs to remain NPO after HIDA. 7. Hyperlipidemia; on ezetimibe with intolerance on statins - Check Lipid Profile this admission. 8. History of asthma - Stable with no evidence of acute flare at this time. Continue prn nebulizers. 9. Remote history of scarlet fever - Noted. 10. RLS; on ropinirole - Restart ropinirole when patient safe to start oral intake. 11. CKD; stage IIIa - Stable. Give gentle IVF's in light of #3. 12. Chronic anemia - Stable with hemoglobin of 12.6 g/dL with MCV of 91.6 fL present on admission. 13. History of SBO - Noted. 14. History of total abdominal hysterectomy - Noted. 15. History of colon resection - Noted. 16. History of appendectomy - Noted. 17. History of cholecystectomy - Noted. 18. Chronic Insomnia; on zolpidem - Restart this agent once patient restarts oral intake. 19. GERD; on esomeprazole - Continue PPI IV. 20. OA; with chronic pain or prn tramadol q. 6 hours prn - Hold tramadol and give morphine IV prn for severe pain as outlined above. Total time: Approximately (but not less than) 75 minutes. Charges/Coding Visit Charges Inpatient E&M: 11418 Init Hosp L3
[2024-09-14 05:02] LABS: Cholesterol 207 mg/dL (200); High Density Lipoprotein 60 mg/dL; Lipase 34 U/L (13-75); Triglycerides 76 mg/dL; Very Low Density Lipoprotein 15 mg/dL (5-40)
[2024-09-14] MEDS: 0.9% Normal Saline (1000mL) 1,000 ML 70 ML IV (05:23)
[2024-09-14] MEDS: Ondansetron 4 MG/2 ML Vial IV ×4 (06:08→19:55)
[2024-09-14 06:34] LABS: Absolute Lymphocyte Count 3.53 X10^3/uL (0.83-4.51); Absolute Neutrophil Count 9.3 X10^3/uL (2.0-7.7); Basophil# 0.08 X10^3/uL; Basophil% 0.5 % (0-1); Eosinophil# 0.44 X10^3/uL; Hematocrit 35.1 % (37-47); Hemoglobin 11.1 g/dL (12.0-15.0); Lymphocyte # 3.53 X10^3/ul (0.83-4.51); Lymphocyte % 23.8 % (19-41); Mean Corp Hgb Conc 31.6 g/dL (32-36); Mean Corpuscular Hgb 29.4 pg (27.0-32.0); Mean Corpuscular Volume 93.1 fL (81-99); Mean Platelet Vol. 9.3 fl (6.2-12.0); Monocyte# 1.33 X10^3/uL; NRBC Flagged by Analyzer 0 % (0-5); Neutrophil # 9.33 X10^3/uL (2.7-7.7); Platelet Count 433 K/mm3 (150-450); RBC Distribution Width CV 13.2 % (11.6-14.6); RBC Distribution Width SD 45.1 fl (35.1-43.9); Red Blood Count 3.77 M/mm3 (4.2-5.4); White Blood Count 14.8 K/mm3 (4.4-11.0)
[2024-09-14] MEDS: Clindamycin 600 MG/50 ML BAG 100 MG IV (06:43)
[2024-09-14 06:48] LABS: ALB/GLOB Ratio 0.8 RATIO (0.9-2.4); AST(SGOT) 311 U/L (15-37); Alanine Aminotransfer ALT/SGPT 123 U/L (13-56); Albumin, Serum 3.1 g/dL (3.2-5.0); Alkaline Phosphatase 138 U/L (45-117); Anion Gap 4 (5-15); BUN 17 mg/dL (7-18); BUN/Creat Ratio 16.3 RATIO (10-20); Calcium,Total 8.7 mg/dL (8.5-10.1); Chloride 112 mmol/L (98-107); Creatinine, Serum 1.04 mg/dL (0.55-1.02); EST Glomerular Filtration Rate 55 mL/min (>60); Est Glom Filt Rate - Afr Amer 67 mL/min (>60); Estimated Creatinine Clearance 41.34 ml/min; Globulin 3.8 g/dL (2.2-4.2); Glucose 95 mg/dL (74-106); Magnesium 2.2 mg/dL (1.6-2.6); Phosphorus 3.3 mg/dL (2.5-4.9); Protein, Total 6.9 g/dL (6.4-8.2); Sodium Level 138 mmol/L (136-145)
[2024-09-14] MEDS: Budesonide Respules 0.5 MG/2 ML AMPUL.NEB. INHALATION ×2 (07:02→21:01)
[2024-09-14] MEDS: Ipratropium/Albuterol Sulfate 3 ML AMPUL.NEB INHALATION ×3 (07:02→21:01)
[2024-09-14 07:10] LABS: T4 Free Direct 1.47 ng/dL (0.76-1.46)
[2024-09-14] MEDS: Morphine 2 MG/ML Syringe IV ×4 (07:24→22:36)
[2024-09-14] MEDS: LORazepam 2 MG/ML Syringe 0.5 MG IV (08:35)
[2024-09-14] MEDS: Pantoprazole Sodium 40 MG in 0.9% Normal Saline (100mL MB+) 100 ML 330 MG IV (09:27)
[2024-09-14] MEDS: MethylPREDNISolone 125 MG/2 ML Vial 60 MG IV (10:48)
[2024-09-14] MEDS: Meropenem 1 GM in 0.9% Normal Saline (100mL MB+) 100 ML IV ×2 (11:32→21:59)
--- NOTE | 2024-09-14 12:43 | EX.PCM.CON.S ---
Assessment & Plan Assessment/Plan (1) Intractable abdominal pain: PLAN: Patient is a 74-year-old female with history of extensive small bowel resection as well as a number of other prior abdominal surgeries and previous admissions for rule out obstruction versus ileus admissions who presents with complaints of progressive abdominal discomfort, nausea, and chills over the last couple days. Initial workup showed evidence of just a mild leukocytosis biliary dilatation, and possible small bowel ileus. As her labs were rechecked this morning her leukocytosis is more progressed and she exhibits transaminitis with an elevation of her alkaline phosphatase. Calculating her R factor (2.7) there is a mixed hepatocellular and cholestatic pattern of injury. Agree with medicines current plan to proceed with MRCP and involve Dr. Blanchard of gastroenterology for possible exam of the periampullary region via ERCP. Also agree with broad-spectrum empiric enteric coverage for now given the differential does include possible developing cholangitis. Both patient's history and exam for possible ileus are less impressive. I believe patient has some mild chronic dilatation of her small bowel given her's short gut status and her reports of ongoing flatus/her bowel gas pattern are reassuring. It is possible that she is dealing with a infection related to biliary stasis and secondarily experiencing some slowing of her GI tract. At this time I do not believe she warrants NG tube placement or even small bowel follow-through study. If she is cleared from doing any procedures later today we could even consider advancing her to a clear liquid diet to monitor for tolerance. Will continue to follow and trend her abdominal exams but if there is persistent concern for an ileus it may be reasonable to try to obtain a specimen for enteric pathogen processing as patient relates a history of numerous infected contacts. The above has been related to primary, Dr. Bartholomew. Lobo Umanzor MD General Surgery Endocrine Surgery Pager: [facility] [address] [place] [address], [facility], [address] [place] [address] Office: [phone] HPI Consult Data Date of Consult: 09/14/24 HPI Narrative Reason for Consultation: Abdominal pain and concern for ileus HPI Narrative: KAITLYN BAIRD, is a 74 F who presents to [facility] with complaints of several days of left-sided abdominal discomfort and associated nausea and chills. She declares the pain is different from pain she has grown accustomed to with chronic postoperative discomfort and is also distinct from the pain that she has experienced in the past with small bowel obstructions. She notes that it has been progressive in nature and seems colicky which she describes as a clenching. She denies any relationship to eating. It has not led to any vomiting but has caused her to have a poor appetite over the last couple days (prior to this she confirms that her nutrition has been better than it has in years). She denies any awareness of fevers. She denies any awareness of jaundice. She does remark that she has been itching more of late. She also confirms that she is continuing to pass flatus. She denies any new foods but does confirm sick contacts?some of which have displayed GI related symptoms. Patient shares that she was recently evaluated for extremity discomfort last month but underwent CT imaging of her abdomen and pelvis at that time for reasons unknown to her. She states that since that visit she developed significant swelling of her lower extremities and appreciated approximately 25 pound weight gain. She reports that she has lost now 13 of those 25 pounds through use of diuretics. She denies any evaluation with echocardiography. Beyond the above she shares that she has had some significant dental work required approximately a week and a half ago due to advanced abscesses requiring a number of teeth to be pulled and periprocedural use of antibiotics. Patient is known to me from 2 previous encounters?on 03/16/2023 and again on 12/07/2023. She confirms her history reported at that time that she has never undergone colon resection but that she was told she is now missing approximately 40% of her small intestine which was removed for small bowel obstruction. She is also status postcholecystectomy but estimates she underwent this procedure in 1979. She shares that she has a remote history of LFT elevation which she estimates occurred 17 to 18 years ago in response to food poisoning. Apart from that she has had no difficulty with her liver. Patient's emergency room workup yesterday evening showed CT evidence of intra and extrahepatic biliary dilation as well as pancreatic dilation and some air-fluid levels throughout the bowel suggestive of a possible ileus. She had a mild leukocytosis of 11,000 but this has progressed to 14,000 this morning along with elevations of her liver function testing. [facility] Medical History (Updated 09/14/24 @ 04:[address] Gerson Peters, DO) Irritable bowel Scarlet fever Depression Hyperthyroidism DVT (deep venous thrombosis) CKD (chronic kidney disease), stage III Chronic anemia History of venous thromboembolism History of small bowel obstruction GERD (gastroesophageal reflux disease) HLD (hyperlipidemia) Anxiety and depression Hypothyroidism Home Medications ?Medication ?Instructions ?Recorded ?Last Taken ?Type alprazolam 1 mg tablet (Xanax) 1 mg PO BID anxiety 12/11/22 Unknown History bupropion HCl 150 mg 24 hr tablet, 150 mg PO BID mental health 12/11/22 Unknown History extended release esomeprazole magnesium 20 mg 20 mg PO DAILY reflux 12/11/22 Unknown History capsule,delayed release ezetimibe 10 mg tablet 10 mg PO DAILY cholesterol 12/11/22 Unknown History levothyroxine 50 mcg tablet 50 mcg PO DAILY thyroid 12/11/22 Unknown History zolpidem 10 mg tablet (Ambien) 10 mg PO QHS sleep 12/11/22 Unknown History docusate sodium 100 mg capsule 100 mg PO BID stool softner 03/31/23 Unknown History budesonide 160 mcg-glycopyr 9 2 inh inhalation BID breathing 12/06/23 Unknown History mcg-formot 4.8 mcg/actuation HFA inhaler (Breztri Aerosphere) buspirone 15 mg tablet 7.5 mg PO BID mental health 12/06/23 Unknown History polyethylene glycol 3350 17 17 g PO BID bowels 12/06/23 Unknown History gram/dose oral powder (Miralax) ropinirole 0.5 mg tablet 0.5 mg PO BID restless legs 12/06/23 Unknown History warfarin 5 mg tablet 5 mg PO DAILY blood thinner 12/06/23 Unknown History ondansetron HCl 4 mg tablet 4 mg PO Q6H PRN Nausea #10 tabs 12/13/23 Unknown Rx furosemide 20 mg tablet 20 mg PO DAILY 09/14/24 Unknown History tramadol 50 mg tablet 50 mg PO Q6H PRN PRN pain 09/14/24 Unknown History Allergy/AdvReac Type Severity Reaction Status Date / Time cefdinir (From Omnicef) Allergy Hives Verified 09/13/24 20:52 codeine Allergy NEEDS Verified 09/13/24 20:52 FOLLOW-UP latex Allergy Anaphylaxis Verified 09/13/24 20:52 prochlorperazine (From Allergy NEEDS Verified 09/13/24 20:52 Compazine) FOLLOW-UP shellfish derived Allergy Anaphylaxis Verified 09/13/24 20:52 levofloxacin (From Levaquin) AdvReac Vomiting Verified 09/13/24 20:52 Uglratm-SBX-[id number] Reductase AdvReac NEEDS Verified 09/13/24 20:52 Inhibitor FOLLOW-UP Family History Mother Heart disease COPD (chronic obstructive pulmonary disease) Father Heart disease Hypertension CAD (coronary artery disease) Myocardial infarction Surgical History History of total abdominal hysterectomy History of colon surgery History of appendectomy History of cholecystectomy Social History household members: none Smoking Status: Never smoker alcohol intake: never substance use type: does not use Physical Exam Const alert, oriented x3 and no apparent distress General Appearance: cooperative Eyes Eyes Narrative: No scleral icterus Resp normal respiratory effort GI GI Narrative: Nondistended, well-healed midline laparotomy scar, soft, mild tenderness with palpation of the left paramedian position?otherwise unremarkable. Lab / Micro Data 09/14/24 06:09 09/14/24 06:09 Labs: Laboratory Results - last 24 hr 09/13/24 21:00: WBC 11.2 H, RBC 4.17 L, Hgb 12.6, Hct 38.2, MCV 91.6, MCH 30.2, MCHC 33.0, RDW Std Deviation 43.3, RDW Coeff of Neno 13.0, Plt Count 498 H, MPV 9.3, Immature Gran % (Auto) 0.600, Neut % (Auto) 64.0, Lymph % (Auto) 26.9, [place] % (Auto) 5.6, Eos % (Auto) 2.0, Baso % (Auto) 0.9, Absolute Neuts (auto) 7.2, Absolute Lymphs (auto) 3.02, Nucleated RBC % 0, Sodium 138, Potassium 4.3, Chloride 106, Carbon Dioxide 23.0, Anion Gap 9, BUN 18, Creatinine 1.16 H, Estim Creat Clear Calc 36.88, Est GFR (MDRD) Af Amer 59 L, Est GFR (MDRD) Non-Af 49 L, BUN/Creatinine Ratio 15.5, Glucose 105, Calcium 9.4, Troponin I High Sens 8, Lipase 32 09/13/24 22:09: PT 13.6, INR 1.0 09/13/24 22:35: Urine Color Cancelled, Urine Clarity Cancelled, Urine pH Cancelled, Ur Specific [place] Cancelled, U Specif Grav (Refrac) Cancelled, Urine Protein Cancelled, Urine Glucose (UA) Cancelled, Urine Ketones Cancelled, Urine Occult Blood Cancelled, Urine Nitrite Cancelled, Urine Bilirubin Cancelled, Urine Urobilinogen Cancelled, Ur Leukocyte Esterase Cancelled, Urine RBC Cancelled, Urine WBC Cancelled, Ur Squamous Epith Cells Cancelled, Ur Transition Epith Cell Cancelled, Ur Renal Epithelial Cell Cancelled, Calcium Oxalate Crystal Cancelled, Uric Acid Crystals Cancelled, Triple Phos Crystals Cancelled, Other Crystals Cancelled, Amorphous Sediment Cancelled, Urine Bacteria Cancelled, Hyaline Casts Cancelled, Fine Granular Casts Cancelled, Coarse Granular Casts Cancelled, Waxy Casts Cancelled, RBC Casts Cancelled, WBC Casts Cancelled, Urine Mucus Cancelled, Urine Trichomonas Cancelled, Urine Yeast Cancelled 09/13/24 23:25: Total Bilirubin 0.50, Direct Bilirubin 0.11, AST 28, ALT 23, Alkaline Phosphatase 87, Troponin I High Sens 7, Total Protein 6.5, Albumin 2.9 L, Globulin 3.6, Triglycerides 76, Cholesterol 207 H, LDL Cholesterol 132 H, VLDL Cholesterol 15, HDL Cholesterol 60, Lipase 34, TSH 14.000 H 09/13/24 23:42: Urine Color Straw, Urine Clarity Sl. Cloudy, Urine pH 7.0, Ur Specific [place] 1.010, Urine Protein Negative, Urine Glucose (UA) Normal, Urine Ketones Negative, Urine Occult Blood 10 H, Urine Nitrite Negative, Urine Bilirubin Negative, Urine Urobilinogen Normal, Ur Leukocyte Esterase 25 H, Urine RBC 0-5 SEEN, Urine WBC 0-5 SEEN, Ur Squamous Epith Cells 0-5 SEEN, Ur Transition Epith Cell 0-5 SEEN, Urine Bacteria RARE, Urine Mucus 0 SEEN 09/14/24 01:24: Lactic Acid 1.0 09/14/24 06:09: WBC 14.8 H, RBC 3.77 L, Hgb 11.1 L, Hct 35.1 L, MCV 93.1, MCH 29.4, MCHC 31.6 L, RDW Std Deviation 45.1 H, RDW Coeff of Neno 13.2, Plt Count 433, MPV 9.3, Immature Gran % (Auto) 0.700, Neut % (Auto) 63.0, Lymph % (Auto) 23.8, [place] % (Auto) 9.0, Eos % (Auto) 3.0, Baso % (Auto) 0.5, Absolute Neuts (auto) 9.3 H, Absolute Lymphs (auto) 3.53, Nucleated RBC % 0, Sodium 138, Potassium 4.0, Chloride 112 H, Carbon Dioxide 23.0, Anion Gap 4 L, BUN 17, Creatinine 1.04 H, Estim Creat Clear Calc 41.34, Est GFR (MDRD) Af Amer 67, Est GFR (MDRD) Non-Af 55 L, BUN/Creatinine Ratio 16.3, Glucose 95, Calcium 8.7, Phosphorus 3.3, Magnesium 2.2, Total Bilirubin 0.70, AST 311 H, ALT 123 H, Alkaline Phosphatase 138 H, Total Protein 6.9, Albumin 3.1 L, Globulin 3.8, Albumin/Globulin Ratio 0.8 L, Free T4 1.47 H Imaging Radiology Impression Chest/Abdomen/Pelvis CTA 09/13/24 21:33 IMPRESSION: Dilated intra and extrahepatic bile ducts and pancreatic duct. Recommend HIDA scan and/or MRCP. Ileus and postop changes as above. Normal contrast-enhanced CT of the chest. Normal contrast-enhanced CT of the abdomen and pelvis. Electronically Signed: David Park MD at 22:54 EST , Charges/Coding Visit Charges Inpatient E&M: 97313 Init Hosp L2
[2024-09-14 14:53] LABS: CPK Total, Creatine Kinase 404 U/L (26-192)
[2024-09-14 14:54] LABS: CRP < 2.90 mg/L (0.0-3.0)
[2024-09-14] MEDS: 0.9% Saline Lock 10 ML Syringe IV ×2 (15:15→15:20)
[2024-09-14] MEDS: LORazepam 2 MG/ML Syringe 0.25 MG IV ×2 (15:20→20:01)
--- NOTE | 2024-09-14 17:30 | PN.HOSP_ITS ---
Hospitalist Note 74-year-old female was admitted with worsening of abdominal pain for about 3 weeks which progressed to include chest tightness and shortness of breath which did not relieved with albuterol inhaler. She also has subjective chills. She is also increased urinary frequency. History of multiple bowel obstruction and small bowel resection in the past. Abdominal pain radiates to back Patient has elevated AST ALT, alk phos. T. bili is normal. Hypoalbuminemia. Free T41.47. CTA chest, abdomen and pelvis individually reviewed. No major vessel aneurysmal dilatation or dissection or significant atheromatous disease. Lungs are well- expanded without take it changed. No effusion or pneumothorax. Intra and extrahepatic bile ducts dilated. GB no 25. Pancreatic duct dilated up to 4 mm. Spleen normal. Dilated small bowel with air-fluid level in the mid segment anastomotic sutures. No mesenteric inflammation. No ascites. Suggested MRCP. Patient complain that she has chronic abdominal pain after she had surgery and multiple episodes of bowel obstruction. About 3 weeks ago she got a new pain different from chronic around umbilical region, left paraumbilical/lumbar region which is spread as broad transverse segment, left lower and then whole abdomen with radiation to upper back. She came yesterday because the pain was worse and intolerable yesterday. Patient passed small flatus and nausea but denies vomiting. No jaundice. Denies fever but had chills sweating. Physical exam General: Alert, Oriented x3, Cooperative HEENT: No icterus atraumatic, PERRLA, EOMI, Normocephalic Oral: Oral mucosa dry no Gingival or Mucosal Lesions/ Ulcerations Neck: Supple, No JVD, Negative Carotid Bruits Chest wall/Lungs: Air entry diminished in bilateral lung bases. No crepitation/rhonchi Cardiovascular: Sinus Rhythm, Normal S1, Normal S2, No M/G/R Abdomen: Bowel sounds sluggish/absent. Tenderness present on right and left periumbilical, RUQ and LUQ. Mild distention : No dysuria. No renal angle tenderness. No suprapubic tenderness. Extremities: No edema, Capillary Refill Less than 3 Seconds Skin: No rashes, No breakdown Musculoskeletal: No Tenderness to Palpation of Joints or Extremities. ROM restricted Neurological: Cranial nerves II-XII grossly intact, DTR 2+/4. No acute focal neurological deficit. Psych/Mental Status: Flat affect 1. Acute liver injury complicated with intra and extrahepatic biliary dilatation, CBD and pancreatic duct dilatation, exact etiology unclear possible at level of ampulla better/duodenal papilla from small bowel dilatation/small bowel ileus: Patient stated she had distal half of small bowel resection. In H&P surgical history states history of KRYSTA, colon surgery, appendectomy and cholecystectomy.. Gallbladder was not seen on CT abdomen. Patient is still has mixed hepatocellular/cholestatic pattern of acute liver injury, AST: ALP ratio 2:1, ALT: ALP 1:1. GGT is ordered. Total bilirubin normal. I am expecting if biliary ductal obstruction is not relieved, she will have increased alkaline phosphatase and total bilirubin in few daysto come. Patient also had chills with leukocytosis, upper limit normal with polymorph therefore IV antibiotic clindamycin upgraded to IV meropenem. She has allergic to penicillin group with hives with cefdinir and Levaquin. Discussed in detail with real estate paralegal Dr. Blanchard and surgeon Dr. Umanzor. Consult requested. Will follow Total time of the visit including total time spent in counseling or coordination of care, (more than 50% of the total time, spent in obtaining medical information from nurses and other ancillary care providers ,explaining to the patient about labs, imaging, diagnosis and management of active complex medical conditions), discussion with the real estate paralegal and surgeon, review of labs and imaging is 35 minutes. Laboratory Results 09/13/24 21:00: WBC 11.2 H, RBC 4.17 L, Hgb 12.6, Hct 38.2, MCV 91.6, MCH 30.2, MCHC 33.0, RDW Std Deviation 43.3, RDW Coeff of Neno 13.0, Plt Count 498 H, MPV 9.3, Immature Gran % (Auto) 0.600, Neut % (Auto) 64.0, Lymph % (Auto) 26.9, [place] % (Auto) 5.6, Eos % (Auto) 2.0, Baso % (Auto) 0.9, Absolute Neuts (auto) 7.2, Absolute Lymphs (auto) 3.02, Nucleated RBC % 0, Sodium 138, Potassium 4.3, Chloride 106, Carbon Dioxide 23.0, Anion Gap 9, BUN 18, Creatinine 1.16 H, Estim Creat Clear Calc 36.88, Est GFR (MDRD) Af Amer 59 L , Est GFR (MDRD) Non-Af 49 L, BUN/Creatinine Ratio 15.5, Glucose 105, Calcium 9.4, Troponin I High Sens 8, Lipase 32 09/13/24 22:09: PT 13.6, INR 1.0 09/13/24 23:25: Total Bilirubin 0.50, Direct Bilirubin 0.11, AST 28, ALT 23, Alkaline Phosphatase 87, Troponin I High Sens 7, Total Protein 6.5, Albumin 2.9 L, Globulin 3.6, Triglycerides 76, Cholesterol 207 H, LDL Cholesterol 132 H, VLDL Cholesterol 15, HDL Cholesterol 60, Lipase 34, TSH 14.000 H 09/13/24 23:42: Urine Color Straw, Urine Clarity Sl. Cloudy, Urine pH 7.0, Ur Specific [place] 1.010, Urine Protein Negative, Urine Glucose (UA) Normal, Urine Ketones Negative, Urine Occult Blood 10 H, Urine Nitrite Negative, Urine Bilirubin Negative, Urine Urobilinogen Normal, Ur Leukocyte Esterase 25 H, Urine RBC 0-5 SEEN, Urine WBC 0-5 SEEN, Ur Squamous Epith Cells 0-5 SEEN, Ur Transition Epith Cell 0-5 SEEN, Urine Bacteria RARE, Urine Mucus 0 SEEN 09/14/24 01:24: Lactic Acid 1.0 09/14/24 06:09: WBC 14.8 H, RBC 3.77 L, Hgb 11.1 L, Hct 35.1 L, MCV 93.1, MCH 29.4, MCHC 31.6 L, RDW Std Deviation 45.1 H, RDW Coeff of Neno 13.2, Plt Count 433, MPV 9.3, Immature Gran % (Auto) 0.700, Neut % (Auto) 63.0, Lymph % (Auto) 23.8, [place] % (Auto) 9.0, Eos % (Auto) 3.0, Baso % (Auto) 0.5, Absolute Neuts (auto) 9.3 H, Absolute Lymphs (auto) 3.53, Nucleated RBC % 0, Sodium 138, Potassium 4.0, Chloride 112 H, Carbon Dioxide 23.0, Anion Gap 4 L, BUN 17, Creatinine 1.04 H, Estim Creat Clear Calc 41.34, Est GFR (MDRD) Af Amer 67, Est GFR (MDRD) Non-Af 55 L, BUN/Creatinine Ratio 16.3, Glucose 95, Calcium 8.7, Phosphorus 3.3, Magnesium 2.2, Total Bilirubin 0.70, AST 311 H, ALT 123 H, Alkaline Phosphatase 138 H, Total Protein 6.9, Albumin 3.1 L, Globulin 3.8, Albumin/Globulin Ratio 0.8 L, Free T4 1.47 H
[2024-09-14] MEDS: Metoclopramide 10 MG/2 ML Vial IV (22:36)
[2024-09-15] VITALS (9 sets, daily range): BP systolic 140–165; BP diastolic 71–94; PULSE 75–94; RESP 12–20; TEMP 36.8–36.9; O2SAT 95–100; BMI 27.1
[2024-09-15] MEDS: Ondansetron 4 MG/2 ML Vial IV ×4 (03:33→20:52)
[2024-09-15] MEDS: 0.9% Saline Lock 10 ML Syringe IV ×5 (03:33→22:28)
[2024-09-15] MEDS: LORazepam 2 MG/ML Syringe 0.25 MG IV ×4 (03:39→20:51)
[2024-09-15 04:34] LABS: Absolute Lymphocyte Count 2.24 X10^3/uL (0.83-4.51); Absolute Neutrophil Count 6.9 X10^3/uL (2.0-7.7); Basophil# 0.03 X10^3/uL; Basophil% 0.3 % (0-1); Eosinophil# 0.02 X10^3/uL; Eosinophils% 0.2 % (0-5); Hematocrit 30.6 % (37-47); Hemoglobin 9.7 g/dL (12.0-15.0); Lymphocyte # 2.24 X10^3/ul (0.83-4.51); Lymphocyte % 22.1 % (19-41); Mean Corp Hgb Conc 31.7 g/dL (32-36); Mean Corpuscular Volume 91.3 fL (81-99); Mean Platelet Vol. 9.1 fl (6.2-12.0); Monocyte% 8.9 % (0-10); NRBC Flagged by Analyzer 0 % (0-5); Neutrophil # 6.88 X10^3/uL (2.7-7.7); Neutrophil % 67.9 % (47-70); Platelet Count 370 K/mm3 (150-450); RBC Distribution Width CV 13.2 % (11.6-14.6); RBC Distribution Width SD 43.8 fl (35.1-43.9); Red Blood Count 3.35 M/mm3 (4.2-5.4); White Blood Count 10.1 K/mm3 (4.4-11.0)
[2024-09-15 05:10] LABS: AST(SGOT) 145 U/L (15-37); Alanine Aminotransfer ALT/SGPT 129 U/L (13-56); Albumin, Serum 2.9 g/dL (3.2-5.0); Alkaline Phosphatase 136 U/L (45-117); Anion Gap 3 (5-15); BUN 15 mg/dL (7-18); BUN/Creat Ratio 15.7 RATIO (10-20); Bilirubin, Direct 0.17 mg/dL (0.00-0.30); Calcium,Total 8.7 mg/dL (8.5-10.1); Chloride 114 mmol/L (98-107); Creatinine, Serum 0.96 mg/dL (0.55-1.02); EST Glomerular Filtration Rate 61 mL/min (>60); Est Glom Filt Rate - Afr Amer 74 mL/min (>60); Estimated Creatinine Clearance 45.07 ml/min; Globulin 3.5 g/dL (2.2-4.2); Glucose 112 mg/dL (74-106); Protein, Total 6.4 g/dL (6.4-8.2); Sodium Level 140 mmol/L (136-145)
--- NOTE | 2024-09-15 06:00 | MRI_ITS ---
STUDY: MR CHOLANGIOPANCREATOGRAPHY (MRCP) REASON FOR EXAM: Female, 74 years old. Dilated IHBD, EHBD and Pancreatic duct -- Abd pain, elevated LFT TECHNIQUE: Standard MRCP technique was utilized. 3-D reconstructions were performed. COMPARISON: None. FINDINGS: Gall Bladder: Gall bladder is not visualized, which may reflect contraction or obstruction of the cystic duct. Cystic duct: Normal with no demonstrated fixed filling defect. Intrahepatic ducts: Normal visualized intrahepatic ducts with no demonstrated fixed filling defect, dilation or stricture. Common hepatic duct: Moderately dilated measuring 9 mm in diameter. Common bile duct: Mildly dilated. Pancreatic duct: Normal with no demonstrated fixed filling defect, dilation or stricture. MRI/MRCP Abdomen without Contrast IMPRESSION: Extrahepatic biliary ductal dilatation which may be normal if there is a history of cholecystectomy. Electronically Signed: Fred Magana MD at 17:56 EST ,
--- NOTE | 2024-09-15 07:28 | PN.HOSP_ITS ---
Objective Data Objective Data Vital Signs: Vital Signs Temp Pulse Resp BP Pulse Ox O2 Del Method 98.4 F 83 16 140/71 H 95 Room Air 09/15/24 03:45 09/15/24 03:45 09/15/24 03:45 09/15/24 03:45 09/15/24 03:45 09/15/24 03:45 Oxygen Delivery Method Room Air Weight: 143 lb 6.4 oz Body Mass Index (BMI) 27.1 Intake & Output: Intake and Output for Last 24 Hours 09/13/24 09/14/24 09/15/24 23:59 23:59 23:59 Intake Total 1714 / 1714 686 / 686 Balance 1714 / 1714 686 / 686 Lab / Micro Data 09/15/24 04:22 09/15/24 04:22 Labs: Laboratory Results - last 24 hr 09/14/24 06:09: Total Creatine Kinase 404 H, C-React Prot Ext Range < 2.90 09/15/24 04:22: WBC 10.1, RBC 3.35 L, Hgb 9.7 L, Hct 30.6 L, MCV 91.3, MCH 29.0, MCHC 31.7 L, RDW Std Deviation 43.8, RDW Coeff of Neno 13.2, Plt Count 370, MPV 9.1, Immature Gran % (Auto) 0.600, Neut % (Auto) 67.9, Lymph % (Auto) 22.1, [place] % (Auto) 8.9, Eos % (Auto) 0.2, Baso % (Auto) 0.3, Absolute Neuts (auto) 6.9, Absolute Lymphs (auto) 2.24, Nucleated RBC % 0, Sodium 140, Potassium 4.0, C hloride 114 H, Carbon Dioxide 23.0, Anion Gap 3 L, BUN 15, Creatinine 0.96, Estim Creat Clear Calc 45.07, Est GFR (MDRD) Af Amer 74, Est GFR (MDRD) Non-Af 61, BUN/Creatinine Ratio 15.7, Glucose 112 H, Calcium 8.7, Total Bilirubin 0.60, Direct Bilirubin 0.17, AST 145 H, ALT 129 H, Alkaline Phosphatase 136 H, Total Protein 6.4, Albumin 2.9 L, Globulin 3.5 Physical Exam Narrative Seen and examined. No fever. Out of bed to chair patient stated her abdominal pain is better but in the morning again felt nauseous and left periumbilical pain without radiation. Patient is out of bed to chair and goes to bathroom Physical exam General: Alert, Oriented x3, Cooperative HEENT: No icterus. Atraumatic, PERRLA, EOMI, Normocephalic Oral: Oral mucosa dry no Gingival or Mucosal Lesions/ Ulcerations Neck: Supple, No JVD, Negative Carotid Bruits Chest wall/Lungs: Air entry diminished in bilateral lung bases. No crepitation/rhonchi Cardiovascular: Sinus Rhythm, Normal S1, Normal S2, No M/G/R Abdomen: Bowel sounds present. Mild tenderness present on left periumbilical region. Distention is better : No dysuria. No renal angle tenderness. No suprapubic tenderness. Extremities: No edema, Capillary Refill Less than 3 Seconds Skin: No rashes, No breakdown Musculoskeletal: No Tenderness to Palpation of Joints or Extremities. ROM restricted Neurological: Cranial nerves II-XII grossly intact, DTR 2+/4. No acute focal neurological deficit. Psych/Mental Status: Flat affect Assessment & Plan Assessment/Plan (1) Common bile duct (CBD) obstruction: (2) Intractable abdominal pain: (3) Leukocytosis: QUALIFIERS: Leukocytosis type: unspecified Qualified Code(s): D 72.829 - Elevated white blood cell count, unspecified (4) Uncontrolled hypertension: (5) History of venous thromboembolism: PLAN: Plan 74-year-old female was admitted with worsening of abdominal pain with radiation to back for about 3 weeks which progressed to include chest tightness and shortness of breath which did not relieved with albuterol inhaler. She also has subjective chills. She is also increased urinary frequency. CTA chest, abdomen and pelvis individually reviewed. No major vessel aneurysmal dilatation or dissection or significant atheromatous disease. Lungs are well- expanded without take it changed. No effusion or pneumothorax. Intra and extrahepatic bile ducts dilated. GB no 25. Pancreatic duct dilated up to 4 mm. Spleen normal. Dilated small bowel with air-fluid level in the mid segment anastomotic sutures. No mesenteric inflammation. No ascites. Suggested MRCP. 1. Acute liver injury complicated with intra and extrahepatic biliary dilatation, CBD and pancreatic duct dilatation, exact etiology unclear possible obstruction at level of ampulla better/duodenal papilla from small bowel dilatation/small bowel ileus: Patient has mixed hepatocellular/cholestatic pattern of acute liver injury, AST: ALP ratio 2:1, ALT: ALP 1:1. GGT is ordered. Total bilirubin normal. Patient also had chills with leukocytosis, upper limit normal with polymorph therefore IV antibiotic clindamycin upgraded to IV meropenem. 09/15: MRCP was ordered but not done yet. Leukocytosis better. Improvement in AST but ALT and alk phos no significant change. Total bili normal. R factor is 2.8 suggestive of mixed pattern. GGT pending 2. Small bowel resection with small bowel ileus: Patient had distal small bowel resection, discussed with the surgeon Dr. Umanzor. Small bowel dilatation is more distal therefore NG tube suction will not benefit some small bowel dilatation expected after small bowel resection as an adaptive mechanism. 09/15: Bowel sounds better. Patient is not passed flatus yet. Advised out of bed to chair. On clear liquid to Jell-O 3. Uncontrolled Hypertension: It was elevated at the time of admission but rates now controlled 4. History of DVT; on Coumadin. Patient's INR was 1 on admission. 09/15: INR 1.1. 1 dose Lovenox 1 mg/kg weight given as patient has low hemoglobin and patient might need ERCP. 5. Depression with anxiety; on bupropion, buspirone and prn alprazolam BID - Hold oral medications and give lorazepam IV prn anxiety. 6. History of hypothyroidism - Check TSH and start IV levothyroxine if patient needs to remain NPO after HIDA. 7. Hyperlipidemia; on ezetimibe with intolerance on statins - Check Lipid Profile this admission. 8. History of asthma - Stable with no evidence of acute flare at this time. Continue prn nebulizers. 9. Remote history of scarlet fever - Noted. 10. RLS; on ropinirole - Restart ropinirole when patient safe to start oral intake. 11. CKD; stage IIIa - Stable. Give gentle IVF's in light of #3. 12. Chronic anemia - hemoglobin of 12.6 g/dL with MCV of 91.6 fL present on admission. 09/15: H&H dropped to 9.7/30.6%. INR 1.0 on 09/13. INR ordered. Patient might go for ERCP therefore warfarin on hold. Will discuss with Dr. Blanchard if no plan for ERCP then we will try for Lovenox 1 mg/kg body weight with close monitoring of H&H. Charges/Coding Visit Charges Inpatient E&M: 20103 Subs Hosp L3
[2024-09-15] MEDS: Budesonide Respules 0.5 MG/2 ML AMPUL.NEB. INHALATION ×2 (07:41→21:00)
[2024-09-15] MEDS: Ipratropium/Albuterol Sulfate 3 ML AMPUL.NEB INHALATION ×3 (07:41→21:00)
[2024-09-15] MEDS: Morphine 2 MG/ML Syringe IV ×3 (08:15→20:51)
[2024-09-15] MEDS: Pantoprazole Sodium 40 MG in 0.9% Normal Saline (100mL MB+) 100 ML 330 MG IV (08:22)
[2024-09-15 08:45] LABS: International Normalized Ratio 1.1; Prothrombin Time (Protime)PT. 14.3 SECONDS (11.7-14.9)
[2024-09-15] MEDS: Meropenem 1 GM in 0.9% Normal Saline (100mL MB+) 100 ML IV ×2 (08:50→22:27)
--- NOTE | 2024-09-15 09:37 | PCM.PN.SRG ---
Subjective Subjective Patient seen and examined during AM rounds. She states that she is feeling better today. She does share that she had a bout of nausea and vomiting last evening after trying some Jell-O but this morning has tolerated liquids as she has been told she will then need to refrain from eating and drinking for 4 hours in anticipation of her pending MRCP. She denies any bowel movements yesterday but has been passing intermittent flatus. Objective Data Objective Data Vital Signs: Vital Signs Temp Pulse Resp BP Pulse Ox O2 Del Method 98.4 F 78 12 140/71 H 95 Room Air 09/15/24 03:45 09/15/24 07:43 09/15/24 07:43 09/15/24 03:45 09/15/24 03:45 09/15/24 08:15 Oxygen Delivery Method Room Air Weight: 143 lb 6.4 oz Body Mass Index (BMI) 27.1 Intake & Output: Intake and Output for Last 24 Hours 09/13/24 09/14/24 09/15/24 23:59 23:59 23:59 Intake Total 1714 / 1714 796 / 796 Balance 1714 / 1714 796 / 796 Lab / Micro Data 09/15/24 04:22 09/15/24 04:22 Labs: Laboratory Results - last 24 hr 09/14/24 06:09: Total Creatine Kinase 404 H, C-React Prot Ext Range < 2.90 09/15/24 04:22: WBC 10.1, RBC 3.35 L, Hgb 9.7 L, Hct 30.6 L, MCV 91.3, MCH 29.0, MCHC 31.7 L, RDW Std Deviation 43.8, RDW Coeff of Neno 13.2, Plt Count 370, MPV 9.1, Immature Gran % (Auto) 0.600, Neut % (Auto) 67.9, Lymph % (Auto) 22.1, [place] % (Auto) 8.9, Eos % (Auto) 0.2, Baso % (Auto) 0.3, Absolute Neuts (auto) 6.9, Absolute Lymphs (auto) 2.24, Nucleated RBC % 0, Sodium 140, Potassium 4.0, Chloride 114 H, Carbon Dioxide 23.0, Anion Gap 3 L, BUN 15, Creatinine 0.96, Estim Creat Clear Calc 45.07, Est GFR (MDRD) Af Amer 74, Est GFR (MDRD) Non-Af 61, BUN/Creatinine Ratio 15.7, Glucose 112 H, Calcium 8.7, Total Bilirubin 0.60, Direct Bilirubin 0.17, AST 145 H, ALT 129 H, Alkaline Phosphatase 136 H, Total Protein 6.4, Albumin 2.9 L, Globulin 3.5 09/15/24 08:16: PT 14.3, INR 1.1 Physical Exam Const oriented x3 and no apparent distress Resp normal respiratory effort GI GI Narrative: Nondistended, soft, nontender to palpation Assessment & Plan Assessment/Plan (1) Intractable abdominal pain: PLAN: Patient is a 74-year-old female with history of extensive small bowel resection as well as a number of other prior abdominal surgeries and previous admissions for rule out obstruction versus ileus admissions who presents with complaints of progressive abdominal discomfort, nausea, and chills over the last couple days. Initial workup showed evidence of just a mild leukocytosis biliary dilatation, and possible small bowel ileus. Patient is hospital day 2 for the above evaluation and appears clinically improved. She denies abdominal discomfort and denies any tenderness with exam. She also continues to exhibit signs of bowel function and has tolerated liquids today. I find that her laboratories have improved both from an infectious standpoint as well as her liver function testing. This information was shared with patient but she is still awaiting MRCP later today. Agree with proceeding / following through with this study as there was evidence for extrinsic compression centrally of the extrahepatic biliary ducts and pancreatic duct. At this time find no cause for surgical intervention nor placement of a nasogastric tube and believe patient exhibits signs of a mild ileus if anything to her normal GI motility. Lobo Umanzor MD General Surgery Endocrine Surgery Pager: [facility] [address] [place] [address], [facility], [address] [place] [address] Office: [phone] Charges/Coding Visit Charges Inpatient E&M: 68406 Subs Hosp L2
--- NOTE | 2024-09-15 10:39 | CASEMGMT ---
DAVID ANTHONY Assessment: Face to Face with pt for initial transition planning/care coordination assessment. DAVID ANTHONY introduced self and role at [facility], pt voices understanding and consents to assessment. Pt is A&O x4 and answers all questions appropriately at this time. Pt sitting up in bed in no distress. Care providers, pharmacy, and demographics verified/updated. Strata: 2 Admitting Dx: CBD lesion with intractable abdominal pain. PCP: Sergio Specialists: Denies [facility] Insurance: [employer] [facility] Prescription Benefit: yes LNOK: Daughter, Rosario; Niece, Vicky. Living Arrangements: Pt lives with daughter, daughter travels a lot. ADLs: Pt I at baseline. Transportation: Pt drives self and denies concerns with transportation. DME: Cane, walker, rollator. HHC/SNF: Was in SNF in [place] and went home with HHC, does not recall what agency. Pt states no concerns with going home at time of dc. Pt states no further concerns/needs. CM to follow. Advised pt to ask CM if any further question/concerns/needs arise, voices understanding. Pt Goal: Home Plan: Home, follow plan of care for safe discharge. Stefan HERNANDEZ CM
--- NOTE | 2024-09-15 16:36 | EX.PCM.CON.G ---
HPI Consult Data Date of Consult: 09/15/24 HPI Narrative HPI Narrative: KAITLYN BAIRD, is a 74 F with a past medical history of history of DVT; on Coumadin who presents with progressively worsening abdominal pain that was tender to palpation. She also admits to nausea and chills but denies vomiting. She states the pain is severe 10/10 and radiating into her back with an associated tension-type headache. She additionally admits to shortness of breath with a sensation of tightness in her chest that radiated into her abdomen for which she took an albuterol inhaler which actually seems to make her symptoms worse. In the ER she was noted to have CT evidence of dilated intra and extrahepatic bile ducts and pancreatic duct with radiologist recommending HIDA scan and/or MRCP with ileus and postop changes complicated by Leukocytosis of 11.2 K present on admission. I was consulted because of abnormal imaging and mildly elevated LFTs. She had MRCP today. Findings: Extrahepatic biliary ductal dilatation up to 9 mm which may be normal if there is a history of cholecystectomy. [facility] Medical History Irritable bowel Scarlet fever Depression Hyperthyroidism DVT (deep venous thrombosis) CKD (chronic kidney disease), stage III Chronic anemia History of venous thromboembolism History of small bowel obstruction GERD (gastroesophageal reflux disease) HLD (hyperlipidemia) Anxiety and depression Hypothyroidism Home Medications ?Medication ?Instructions ?Recorded ?Last Taken ?Type alprazolam 1 mg tablet (Xanax) 1 mg PO BID anxiety 12/11/22 Unknown History bupropion HCl 150 mg 24 hr tablet, 150 mg PO BID mental health 12/11/22 Unknown History extended release esomeprazole magnesium 20 mg 20 mg PO DAILY reflux 12/11/22 Unknown History capsule,delayed release ezetimibe 10 mg tablet 10 mg PO DAILY cholesterol 12/11/22 Unknown History levothyroxine 50 mcg tablet 50 mcg PO DAILY thyroid 12/11/22 Unknown History zolpidem 10 mg tablet (Ambien) 10 mg PO QHS sleep 12/11/22 Unknown History docusate sodium 100 mg capsule 100 mg PO BID stool softner 03/31/23 Unknown History budesonide 160 mcg-glycopyr 9 2 inh inhalation BID breathing 12/06/23 Unknown History mcg-formot 4.8 mcg/actuation HFA inhaler (Breztri Aerosphere) buspirone 15 mg tablet 7.5 mg PO BID mental health 12/06/23 Unknown History polyethylene glycol 3350 17 17 g PO BID bowels 12/06/23 Unknown History gram/dose oral powder (Miralax) ropinirole 0.5 mg tablet 0.5 mg PO BID restless legs 12/06/23 Unknown History warfarin 5 mg tablet 5 mg PO DAILY blood thinner 12/06/23 Unknown History ondansetron HCl 4 mg tablet 4 mg PO Q6H PRN Nausea #10 tabs 12/13/23 Unknown Rx furosemide 20 mg tablet 20 mg PO DAILY 09/14/24 Unknown History tramadol 50 mg tablet 50 mg PO Q6H PRN PRN pain 09/14/24 Unknown History Allergy/AdvReac Type Severity Reaction Status Date / Time cefdinir (From Omnicef) Allergy Hives Verified 09/13/24 20:52 codeine Allergy NEEDS Verified 09/13/24 20:52 FOLLOW-UP latex Allergy Anaphylaxis Verified 09/13/24 20:52 prochlorperazine (From Allergy NEEDS Verified 09/13/24 20:52 Compazine) FOLLOW-UP shellfish derived Allergy Anaphylaxis Verified 09/13/24 20:52 levofloxacin (From Levaquin) AdvReac Vomiting Verified 09/13/24 20:52 [id number]-CFG-[id number] Reductase AdvReac NEEDS Verified 09/13/24 20:52 Inhibitor FOLLOW-UP Family History Mother Heart disease COPD (chronic obstructive pulmonary disease) Father Heart disease Hypertension CAD (coronary artery disease) Myocardial infarction Surgical History History of total abdominal hysterectomy History of colon surgery History of appendectomy History of cholecystectomy Social History household members: none Smoking Status: Never smoker alcohol intake: never substance use type: does not use Physical Exam Const oriented x3 and no apparent distress Resp normal respiratory effort GI GI Narrative: Nondistended, soft, nontender to palpation Lab / Micro Data 09/15/24 04:22 09/15/24 04:22 Labs: Laboratory Results - last 24 hr 09/15/24 04:22: WBC 10.1, RBC 3.35 L, Hgb 9.7 L, Hct 30.6 L, MCV 91.3, MCH 29.0, MCHC 31.7 L, RDW Std Deviation 43.8, RDW Coeff of Neno 13.2, Plt Count 370, MPV 9.1, Immature Gran % (Auto) 0.600, Neut % (Auto) 67.9, Lymph % (Auto) 22.1, [place] % (Auto) 8.9, Eos % (Auto) 0.2, Baso % (Auto) 0.3, Absolute Neuts (auto) 6.9, Absolute Lymphs (auto) 2.24, Nucleated RBC % 0, Sodium 140, Potassium 4.0, Chloride 114 H, Carbon Dioxide 23.0, Anion Gap 3 L, BUN 15, Creatinine 0.96, Estim Creat Clear Calc 45.07, Est GFR (MDRD) Af Amer 74, Est GFR (MDRD) Non-Af 61, BUN/Creatinine Ratio 15.7, Glucose 112 H, Calcium 8.7, Total Bilirubin 0.60, Direct Bilirubin 0.17, AST 145 H, ALT 129 H, Alkaline Phosphatase 136 H, Total Protein 6.4, Albumin 2.9 L, Globulin 3.5 09/15/24 08:16: PT 14.3, INR 1.1 Assessment & Plan Assessment/Plan (1) Common bile duct (CBD) obstruction: (2) Intractable abdominal pain: (3) Leukocytosis: QUALIFIERS: Leukocytosis type: unspecified Qualified Code(s): D72.829 - Elevated white blood cell count, unspecified (4) Uncontrolled hypertension: (5) History of venous thromboembolism: PLAN: Plan 74-year-old with history of DVT on warfarin and history of multiple abdominal surgeries due to multiple small bowel obstructions had a CT evidence of dilated intra and extrahepatic bile ducts and pancreatic duct with radiologist recommending HIDA scan and/or MRCP with ileus and postop changes complicated by Leukocytosis of 11.2 K present on admission. MRCP displayed dilated common bile duct in the setting of a postcholecystectomy patient without any filling defects. I do not think she has any signs of obstruction at this time. She does have chronically elevated liver enzymes from unknown reason but that should not cause abdominal pain. I do not think she needs ERCP due to no signs of obstructive disease at this time. Charges/Coding Visit Charges Inpatient E&M: 01890 Init Hosp L3
[2024-09-15] MEDS: Enoxaparin 60 MG/0.6 ML Syringe SC (18:46)
[2024-09-16] VITALS (9 sets, daily range): BP systolic 136–155; BP diastolic 68–80; PULSE 69–82; RESP 14–20; TEMP 36.7–36.8; O2SAT 74–99; BMI 27.1
[2024-09-16] MEDS: Morphine 2 MG/ML Syringe IV ×4 (03:25→22:34)
[2024-09-16] MEDS: Ondansetron 4 MG/2 ML Vial IV ×4 (03:25→22:33)
[2024-09-16] MEDS: LORazepam 2 MG/ML Syringe 0.25 MG IV ×3 (03:26→16:32)
[2024-09-16] MEDS: 0.9% Saline Lock 10 ML Syringe IV ×3 (03:26→23:32)
[2024-09-16 04:06] LABS: GGTP 89 IU/L (0-60)
[2024-09-16] MEDS: Budesonide Respules 0.5 MG/2 ML AMPUL.NEB. INHALATION ×2 (07:11→19:04)
[2024-09-16] MEDS: Ipratropium/Albuterol Sulfate 3 ML AMPUL.NEB INHALATION ×3 (07:11→19:04)
--- NOTE | 2024-09-16 07:38 | PN.HOSP_ITS ---
Reason for Visit Reason for Visit: Diagnoses Elevated white blood cell count, unspecified (09/14/24) Essential (primary) hypertension (09/14/24) Obstruction of bile duct (09/14/24) Unspecified abdominal pain (09/14/24) Personal history of other venous thrombosis and embolism (09/14/24) Objective Data Objective Data Vital Signs: Vital Signs Temp Pulse Resp BP Pulse Ox O2 Del Method O2 Flow Rate 98.2 F 70 17 143/74 H 97 Room Air 2 09/16/24 02:00 09/16/24 07:12 09/16/24 07:12 09/16/24 02:00 09/16/24 07:12 09/16/24 07:12 09/16/24 02:00 Oxygen Flow Rate (L/min) 2 Oxygen Delivery Method Room Air Weight: 143 lb 4.807 oz Body Mass Index (BMI) 27.1 Intake & Output: Intake and Output for Last 24 Hours 09/14/24 09/15/24 09/16/24 23:59 23:59 23:59 Intake Total 1714 / 1714 1376 / 1376 420 / 420 Output Total 400 / 400 Balance 1714 / 1714 1376 / 1376 20 / 20 Lab / Micro Data 09/16/24 07:19 09/16/24 07:19 Labs: Laboratory Results - last 24 hr 09/14/24 11:30: GGT 89 H 09/15/24 08:16: PT 14.3, INR 1.1 Radiography Diagnostic Testing: Radiology Impression MRCP 09/15/24 06:00 IMPRESSION: Extrahepatic biliary ductal dilatation which may be normal if there is a history of cholecystectomy. Electronically Signed: Fred Magana MD at 17:56 EST , Physical Exam Narrative Seen and examined. Patient stated that she took ibuprofen for her tooth extraction. Exact dosing unclear but ibuprofen total 800 mg at least twice daily for 10 days. No fever. Out of bed to chair patient stated her abdominal pain is better but in the morning again felt nauseous and left periumbilical pain without radiation. Patient is out of bed to chair and goes to bathroom Physical exam General: Alert, Oriented x3, Cooperative HEENT: No icterus. Atraumatic, PERRLA, EOMI, Normocephalic Oral: Oral mucosa dry. A small tiny about 1 to 2 mm patch on the right retromola gum r area Neck: Supple, No JVD, Negative Carotid Bruits Chest wall/Lungs: Air entry diminished in bilateral lung bases. No crepitation/rhonchi Cardiovascular: Sinus Rhythm, Normal S1, Normal S2, No M/G/R Abdomen: Bowel sounds present. Mild tenderness present on left periumbilical region. Distention is better : No dysuria. No renal angle tenderness. No suprapubic tenderness. Extremities: No edema, Capillary Refill Less than 3 Seconds Skin: No rashes, No breakdown Musculoskeletal: No Tenderness to Palpation of Joints or Extremities. ROM restricted Neurological: Cranial nerves II-XII grossly intact, DTR 2+/4. No acute focal neurological deficit. Psych/Mental Status: Flat affect Assessment & Plan Assessment/Plan (1) Common bile duct (CBD) obstruction: (2) Intractable abdominal pain: (3) Leukocytosis: QUALIFIERS: Leukocytosis type: unspecified Qualified Code(s): D 72.829 - Elevated white blood cell count, unspecified (4) Uncontrolled hypertension: (5) History of venous thromboembolism: PLAN: Plan 74-year-old female was admitted with worsening of abdominal pain with radiation to back for about 3 weeks which progressed to include chest tightness and shortness of breath which did not relieved with albuterol inhaler. She also has subjective chills. She is also increased urinary frequency. CTA chest, abdomen and pelvis individually reviewed. No major vessel aneurysmal dilatation or dissection or significant atheromatous disease. Lungs are well- expanded without take it changed. No effusion or pneumothorax. Intra and extrahepatic bile ducts dilated. GB no 25. Pancreatic duct dilated up to 4 mm. Spleen normal. Dilated small bowel with air-fluid level in the mid segment anastomotic sutures. No mesenteric inflammation. No ascites. Suggested MRCP. 1. Acute liver injury complicated with intra and extrahepatic biliary dilatation, CBD and pancreatic duct dilatation, exact etiology unclear possible obstruction at level of ampulla better/duodenal papilla from small bowel dilatation/small bowel ileus: Patient has mixed hepatocellular/cholestatic pattern of acute liver injury, AST: ALP ratio 2:1, ALT: ALP 1:1. GGT is ordered. Total bilirubin normal. Patient also had chills with leukocytosis, upper limit normal with polymorph therefore IV antibiotic clindamycin upgraded to IV meropenem. 09/15: MRCP was ordered but not done yet. Leukocytosis better. Improvement in AST but ALT and alk phos no significant change. Total bili normal. R factor is 2.8 suggestive of mixed pattern. GGT pending 09/16: MRCP images individually reviewed. Extrahepatic biliary ductal dilatation from common hepatic duct about 9 mm in diameter, and. CBD intrahepatic ducts normal visualized, validate normal visualized with no demonstrated 6 filling defect dilatation or stricture. Cystic duct normal. Patient had cholecystectomy. It seems patient might have functional dilatation because of ibuprofen, DILI which is supported by pattern of liver injury. Liver chemistry shows improvement in transaminases and alkaline phosphatase. Total bilirubin normal. 2. Small bowel resection with small bowel ileus: Patient had distal small bowel resection, discussed with the surgeon Dr. Umanzor. Small bowel dilatation is more distal therefore NG tube suction will not benefit some small bowel dilatation expected after small bowel resection as an adaptive mechanism. 09/15: Bowel sounds better. Patient is not passed flatus yet. Advised out of bed to chair. On clear liquid to Jell-O 09/16: Last BM was Sunday. She passed flatus yesterday night. Bowel sounds present. 3. Uncontrolled Hypertension: It was elevated at the time of admission but rates now controlled 4. History of DVT; on Coumadin. Patient's INR was 1 on admission. 09/15: INR 1.1. 1 dose Lovenox 1 mg/kg weight given as patient has low hemoglobin and patient might need ERCP. 5. Depression with anxiety; on bupropion, buspirone and prn alprazolam BID - Hold oral medications and give lorazepam IV prn anxiety. 6. History of hypothyroidism - Check TSH and start IV levothyroxine if patient needs to remain NPO after HIDA. 7. Hyperlipidemia; on ezetimibe with intolerance on statins - Check Lipid Profile this admission. 8. History of asthma - Stable with no evidence of acute flare at this time. Continue prn nebulizers. 9. Remote history of scarlet fever - Noted. 10. RLS; on ropinirole - Restart ropinirole when patient safe to start oral intake. 11. CKD; stage IIIa - Stable. Give gentle IVF's in light of #3. 12. Chronic anemia - hemoglobin of 12.6 g/dL with MCV of 91.6 fL present on admission. 09/15: H&H dropped to 9.7/30.6%. INR 1.0 on 09/13. INR ordered. Patient might go for ERCP therefore warfarin on hold. Will discuss with DrFamilia Blanchard if no plan for ERCP then we will try for Lovenox 1 mg/kg body weight with close monitoring of H&H. Clinical Impression(s) from Imaging Studies Chest/Abdomen/Pelvis CTA 09/13/24 21:33 IMPRESSION: Dilated intra and extrahepatic bile ducts and pancreatic duct. Recommend HIDA scan and/or MRCP. Ileus and postop changes as above. Normal contrast-enhanced CT of the chest. Normal contrast-enhanced CT of the abdomen and pelvis. Electronically Signed: David Park MD at 22:54 EST , MRCP 09/15/24 06:00 IMPRESSION: Extrahepatic biliary ductal dilatation which may be normal if there is a history of cholecystectomy. Electronically Signed: Fred Magana MD at 17:56 EST , Charges/Coding Visit Charges Inpatient E&M: 40299 Subs Hosp L3
[2024-09-16 07:54] LABS: Absolute Lymphocyte Count 2.92 X10^3/uL (0.83-4.51); Absolute Neutrophil Count 4.6 X10^3/uL (2.0-7.7); Basophil# 0.08 X10^3/uL; Basophil% 0.9 % (0-1); Eosinophil# 0.24 X10^3/uL; Eosinophils% 2.8 % (0-5); Hematocrit 30.8 % (37-47); Hemoglobin 10.1 g/dL (12.0-15.0); Lymphocyte # 2.92 X10^3/ul (0.83-4.51); Lymphocyte % 33.8 % (19-41); Mean Corp Hgb Conc 32.8 g/dL (32-36); Mean Corpuscular Hgb 30.3 pg (27.0-32.0); Mean Corpuscular Volume 92.5 fL (81-99); Mean Platelet Vol. 9.8 fl (6.2-12.0); Monocyte# 0.82 X10^3/uL; Monocyte% 9.5 % (0-10); NRBC Flagged by Analyzer 0 % (0-5); Neutrophil # 4.55 X10^3/uL (2.7-7.7); Neutrophil % 52.5 % (47-70); Platelet Count 382 K/mm3 (150-450); RBC Distribution Width CV 13.2 % (11.6-14.6); RBC Distribution Width SD 44.8 fl (35.1-43.9); Red Blood Count 3.33 M/mm3 (4.2-5.4); White Blood Count 8.7 K/mm3 (4.4-11.0)
[2024-09-16 08:35] LABS: International Normalized Ratio 1.2; Prothrombin Time (Protime)PT. 15.4 SECONDS (11.7-14.9)
[2024-09-16 08:36] LABS: AST(SGOT) 79 U/L (15-37); Alanine Aminotransfer ALT/SGPT 92 U/L (13-56); Albumin, Serum 2.9 g/dL (3.2-5.0); Alkaline Phosphatase 124 U/L (45-117); Anion Gap 6 (5-15); BUN 14 mg/dL (7-18); BUN/Creat Ratio 14.9 RATIO (10-20); Bilirubin, Direct 0.14 mg/dL (0.00-0.30); Calcium,Total 8.5 mg/dL (8.5-10.1); Chloride 108 mmol/L (98-107); Creatinine, Serum 0.94 mg/dL (0.55-1.02); EST Glomerular Filtration Rate 62 mL/min (>60); Est Glom Filt Rate - Afr Amer 75 mL/min (>60); Estimated Creatinine Clearance 46.01 ml/min; Globulin 3.5 g/dL (2.2-4.2); Glucose 103 mg/dL (74-106); Potassium 3.8 mmol/L (3.5-5.1); Protein, Total 6.4 g/dL (6.4-8.2); Sodium Level 138 mmol/L (136-145)
[2024-09-16] MEDS: NYSTATIN 500,000 UNIT/5 ML UDC 500000 UNIT PO ×4 (08:45→22:27)
[2024-09-16] MEDS: Pantoprazole Sodium 40 MG in 0.9% Normal Saline (100mL MB+) 100 ML 330 MG IV (08:46)
[2024-09-16] MEDS: Meropenem 1 GM in 0.9% Normal Saline (100mL MB+) 100 ML IV (09:26)
--- NOTE | 2024-09-16 09:56 | PN.SURG_ITS ---
Subjective Subjective Patient seen and examined during AM rounds. She is found sitting out of bed in the chair. She states that she is overall tolerating her liquids, however, she finds they are giving her heartburn and some mild nausea. She continues to pass flatus but states that it is somewhat infrequent. She is pleased to hear the results of her MRCP and believes that things are heading in the right direction as she feels her self otherwise improving. Objective Data Objective Data Vital Signs: Vital Signs Temp Pulse Resp BP Pulse Ox O2 Del Method O2 Flow Rate 98.3 F 82 18 138/68 H 96 Room Air 2 09/16/24 08:00 09/16/24 08:00 09/16/24 08:00 09/16/24 08:00 09/16/24 08:00 09/16/24 08:00 09/16/24 02:00 Oxygen Flow Rate (L/min) 2 Oxygen Delivery Method Room Air Weight: 143 lb 4.807 oz Body Mass Index (BMI) 27.1 Intake & Output: Intake and Output for Last 24 Hours 09/14/24 09/15/24 09/16/24 23:59 23:59 23:59 Intake Total 1714 / 1714 1376 / 1376 530 / 530 Output Total 400 / 400 Balance 1714 / 1714 1376 / 1376 130 / 130 Lab / Micro Data 09/16/24 07:19 09/16/24 07:19 Labs: Laboratory Results - last 24 hr 09/14/24 11:30: GGT 89 H 09/16/24 07:19: WBC 8.7, RBC 3.33 L, Hgb 10.1 L, Hct 30.8 L, MCV 92.5, MCH 30.3, MCHC 32.8, RDW Std Deviation 44.8 H, RDW Coeff of Neno 13.2, Plt Count 382, MPV 9.8, Immature Gran % (Auto) 0.500, Neut % (Auto) 52.5, Lymph % (Auto) 33.8, [place] % (Auto) 9.5, Eos % (Auto) 2.8, Baso % (Auto) 0.9, Absolute Neuts (auto) 4.6, Absolute Lymphs (auto) 2.92, Nucleated RBC % 0, PT 15.4 H, INR 1.2, Sodium 138, Potassium 3.8, Chloride 108 H, Carbon Dioxide 23.0, Anion Gap 6, BUN 14, Creatinine 0.94, Estim Creat Clear Calc 46.01, Est GFR (MDRD) Af Amer 75, Est GFR (MDRD) Non-Af 62, BUN/Creatinine Ratio 14.9, Glucose 103, Calcium 8.5, Total Bilirubin 0.70, Direct Bilirubin 0.14, AST 79 H, ALT 92 H, Alkaline Phosphatase 124 H, Total Protein 6.4, Albumin 2.9 L, Globulin 3.5 Radiography Diagnostic Testing: Radiology Impression MRCP 09/15/24 06:00 IMPRESSION: Extrahepatic biliary ductal dilatation which may be normal if there is a history of cholecystectomy. Electronically Signed: Fred Magana MD at 17:56 EST , Physical Exam Const oriented x3 and no apparent distress Resp normal respiratory effort GI GI Narrative: Nondistended, soft, mild tenderness elicited with palpation of left abdominal wall Assessment & Plan Assessment/Plan (1) Intractable abdominal pain: PLAN: Patient is a 74-year-old female with history of extensive small bowel resection as well as a number of other prior abdominal surgeries and previous admissions for rule out obstruction versus ileus admissions who presents with complaints of progressive abdominal discomfort, nausea, and chills over the last couple days. Initial workup showed evidence of just a mild leukocytosis biliary dilatation, and possible small bowel ileus. Patient is hospital day 3 for the above evaluation and appears further clinically improved. She denies abdominal discomfort and expresses only mild tenderness with exam. She also continues to exhibit signs of bowel function and has tolerated liquids today. It is my suspicion that the clear liquid acidity is upsetting her stomach and Mrs. Escobar confirms this stating that she wishes to be advanced in her diet. MRCP yesterday did not show evidence of extrinsic compression on the biliary tree and instead suggested that ductal dilatation was simply consistent with normal postoperative changes following cholecystectomy. Apparently there is now suspicion that her presentation was secondary to ibuprofen usage. From a surgical standpoint we will advance patient's diet to full liquids and monitor for tolerance. If this is tolerated she may advance further and could be considered for discharge to home provided there is agreement with primary service. Lobo Umanzor MD General Surgery Endocrine Surgery Pager: [facility] [address] [place] [address], [facility], [address] [place] [address] Office: [phone] Charges/Coding Visit Charges Inpatient E&M: 90241 Subs Hosp L2
[2024-09-16] MEDS: LORazepam 2 MG/ML Syringe 0.5 MG IV (23:31)
[2024-09-17 04:00] VITALS: BP 149/66; PULSE 71; RESP 14; TEMP 36.7; O2SAT 98
[2024-09-17 04:29] LABS: Absolute Lymphocyte Count 2.48 X10^3/uL (0.83-4.51); Absolute Neutrophil Count 4.7 X10^3/uL (2.0-7.7); Basophil# 0.06 X10^3/uL; Basophil% 0.7 % (0-1); Eosinophils% 3.6 % (0-5); Hematocrit 30.4 % (37-47); Hemoglobin 9.9 g/dL (12.0-15.0); Lymphocyte # 2.48 X10^3/ul (0.83-4.51); Lymphocyte % 29.8 % (19-41); Mean Corp Hgb Conc 32.6 g/dL (32-36); Mean Corpuscular Hgb 29.6 pg (27.0-32.0); Mean Corpuscular Volume 90.7 fL (81-99); Mean Platelet Vol. 9.6 fl (6.2-12.0); Monocyte# 0.79 X10^3/uL; Monocyte% 9.5 % (0-10); NRBC Flagged by Analyzer 0 % (0-5); Neutrophil # 4.65 X10^3/uL (2.7-7.7); Platelet Count 372 K/mm3 (150-450); RBC Distribution Width CV 13.2 % (11.6-14.6); RBC Distribution Width SD 43.8 fl (35.1-43.9); Red Blood Count 3.35 M/mm3 (4.2-5.4); White Blood Count 8.3 K/mm3 (4.4-11.0)
[2024-09-17 04:39] LABS: International Normalized Ratio 1.1; Prothrombin Time (Protime)PT. 14.8 SECONDS (11.7-14.9)
[2024-09-17] MEDS: Morphine 2 MG/ML Syringe IV (04:44)
[2024-09-17] MEDS: 0.9% Saline Lock 10 ML Syringe IV (04:45)
[2024-09-17] MEDS: Ondansetron 4 MG/2 ML Vial IV (04:45)
[2024-09-17 05:00] LABS: AST(SGOT) 54 U/L (15-37); Alanine Aminotransfer ALT/SGPT 71 U/L (13-56); Alkaline Phosphatase 119 U/L (45-117); Anion Gap 5 (5-15); BUN 11 mg/dL (7-18); BUN/Creat Ratio 11.9 RATIO (10-20); Bilirubin, Direct 0.13 mg/dL (0.00-0.30); Calcium,Total 8.7 mg/dL (8.5-10.1); Chloride 111 mmol/L (98-107); Creatinine, Serum 0.92 mg/dL (0.55-1.02); EST Glomerular Filtration Rate 63 mL/min (>60); Est Glom Filt Rate - Afr Amer 77 mL/min (>60); Estimated Creatinine Clearance 47.01 ml/min; Globulin 3.4 g/dL (2.2-4.2); Glucose 112 mg/dL (74-106); Potassium 3.6 mmol/L (3.5-5.1); Protein, Total 6.4 g/dL (6.4-8.2); Sodium Level 139 mmol/L (136-145)
[2024-09-17 05:38] VITALS: BMI 27.9
[2024-09-17] MEDS: LORazepam 2 MG/ML Syringe 0.5 MG IV ×2 (07:49→14:03)
[2024-09-17] MEDS: Budesonide Respules 0.5 MG/2 ML AMPUL.NEB. INHALATION (08:05)
[2024-09-17] MEDS: Ipratropium/Albuterol Sulfate 3 ML AMPUL.NEB INHALATION ×2 (08:05→12:58)
[2024-09-17 08:06] VITALS: PULSE 69; RESP 18; O2SAT 98
[2024-09-17 10:00] VITALS: BP 140/68; PULSE 70; RESP 16; TEMP 36.8; O2SAT 98
[2024-09-17] MEDS: NYSTATIN 500,000 UNIT/5 ML UDC 500000 UNIT PO (10:11)
[2024-09-17] MEDS: Pantoprazole Sodium 40 MG in 0.9% Normal Saline (100mL MB+) 100 ML 330 MG IV (10:12)
--- NOTE | 2024-09-17 10:14 | PCM.PN.SRG ---
Subjective Subjective Patient seen and examined during AM rounds. She was physically transferred out of the ICU to the PCU overnight. She states that she is not feeling quite as good today as she felt some weakness while in the bathroom earlier. She does comment that she tolerated her diet advancement without issue and denies any nausea after consuming the majority of her breakfast tray today. She has a number of questions related to the possible etiology for her hospital presentation. Objective Data Objective Data Vital Signs: Vital Signs Temp Pulse Resp BP Pulse Ox O2 Del Method O2 Flow Rate 98.0 F 69 18 149/66 H 98 Room Air 2 09/17/24 04:00 09/17/24 08:06 09/17/24 08:06 09/17/24 04:00 09/17/24 08:06 09/17/24 08:06 09/16/24 02:00 Oxygen Flow Rate (L/min) 2 Oxygen Delivery Method Room Air Weight: 147 lb 14.883 oz Body Mass Index (BMI) 27.9 Intake & Output: Intake and Output for Last 24 Hours 09/15/24 09/16/24 09/17/24 23:59 23:59 23:59 Intake Total 1376 / 1376 650 / 650 Output Total 400 / 400 Balance 1376 / 1376 250 / 250 Lab / Micro Data 09/17/24 03:46 09/17/24 03:46 Labs: Laboratory Results - last 24 hr 09/17/24 03:46: WBC 8.3, RBC 3.35 L, Hgb 9.9 L, Hct 30.4 L, MCV 90.7, MCH 29.6, MCHC 32.6, RDW Std Deviation 43.8, RDW Coeff of Neno 13.2, Plt Count 372, MPV 9.6, Immature Gran % (Auto) 0.400, Neut % (Auto) 56.0, Lymph % (Auto) 29.8, [place] % (Auto) 9.5, Eos % (Auto) 3.6, Baso % (Auto) 0.7, Absolute Neuts (auto) 4.7, Absolute Lymphs (auto) 2.48, Nucleated RBC % 0, PT 14.8, INR 1.1, Sodium 139, Potassium 3.6, Chloride 111 H, Carbon Dioxide 23.0, Anion Gap 5, BUN 11, Creatinine 0.92, Estim Creat Clear Calc 47.01, Est GFR (MDRD) Af Amer 77, Est GFR (MDRD) Non-Af 63, BUN/Creatinine Ratio 11.9, Glucose 112 H, Calcium 8.7, Total Bilirubin 0.50, Direct Bilirubin 0.13, AST 54 H, ALT 71 H, Alkaline Phosphatase 119 H, Total Protein 6.4, Albumin 3.0 L, Globulin 3.4 Physical Exam Const oriented x3 and no apparent distress GI GI Narrative: Nondistended, soft, nontender to palpation x 4 quadrants Assessment & Plan Assessment/Plan (1) Intractable abdominal pain: PLAN: Patient is a 74-year-old female with history of extensive small bowel resection as well as a number of other prior abdominal surgeries and previous admissions for rule out obstruction versus ileus admissions who presents with complaints of progressive abdominal discomfort, nausea, and chills over the last couple days. Initial workup showed evidence of just a mild leukocytosis biliary dilatation, and possible small bowel ileus. Patient is hospital day 4 for the above evaluation and appears stable to somewhat improved. Once again, she denies abdominal discomfort or tenderness on exam. She had several bowel movements yesterday and another 1 today and appears to have tolerated her advancement of her diet. MRCP 2 days ago did not show evidence of extrinsic compression on the biliary tree and instead suggested that ductal dilatation was simply consistent with normal postoperative changes following cholecystectomy. Apparently there is now suspicion that her presentation was secondary to ibuprofen usage. From a surgical standpoint, no further intervention is recommended and patient could be considered suitable for discharge to home. Lobo Umanzor MD General Surgery Endocrine Surgery Pager: [facility] [address] [place] [address], [address] [place] [address] Office: [phone] Charges/Coding Visit Charges Inpatient E&M: 84133 Subs Hosp L2
[2024-09-17 12:59] VITALS: PULSE 74; RESP 18
--- NOTE | 2024-09-17 13:30 | DS.PCM_ITS ---
Providers Date of Admission: 09/14/24 Date of Discharge: 09/17/24 Primary Care Physician: Dr. Jaison Hill MD Consultations 09/14/24 09:29 Consult: Gastroenterology Routine Consulting Provider: [facility] Reason for Consult: Diffuse IHBD, CBD and pancreatic ductal dilatation. EMERGENT Consult: No Notified: Yes Date Notified: 09/14/24 Time Notified: 09:15 Method of Notification: Verbal 09/14/24 09:41 Consult: General Surgery Routine Consulting Provider: Lobo Umanzor Reason for Consult: SMALL Bowel ileus, biliary and PD dilation EMERGENT Consult: No Notified: Yes Date Notified: 09/14/24 Time Notified: 09:41 Method of Notification: Verbal Reason For Visit: CBD LESION WITH INTRACTABLE ABDOMINAL PAIN Diagnosis Discharge Diagnosis (1) Intractable abdominal pain: Status: Acute Code(s): R10.9 - Unspecified abdominal pain Plan Patient is a 74-year-old lady admitted with worsening abdominal pain radiating to the back. Patient was found to have acute liver injury complicated by intra and extrahepatic biliary dilatation admitted to monitored bed for further management 1. Acute liver injury ? Complicated by intra and extrahepatic biliary dilatation confirmed on imaging studies. An assessment of ibuprofen induced liver injury was made patient transaminases did improve following discontinuation of offending medications. Patient was also seen in consultation by 2. Small bowel ileus -The patient with previous small bowel resection was seen in consultation by general surgery resolved with IV hydration 3. History of DVT ? Patient is on Coumadin held on admission in anticipation for possible ERCP. Patient however did not end up with ERCP was discharged home with resumption of her Coumadin dose. Instructed to follow-up with primary care physician for repeat PT/INR for subsequent adjustment of doses if needed 4. Uncontrolled hypertension ? Patient blood pressure on admission was markedly elevated had resolved at the time of discharge 5. Next depression with anxiety ? Patient is on bupropion as well as buspirone continue 6. Hypothyroidism ? Patient is on levothyroxine home dose continued 7. Dyslipidemia ? Patient apparently has intolerance to statin therapy currently on his Antiminth did continue 8. Mild intermittent asthma ? Not in exacerbation aerosol treatment as needed 9. Chronic kidney disease stage IIIa kidney function at baseline 10. Restless leg syndrome ? Patient is on ropinirole 11. Anemia ? Secondary to chronic disorder monitoring H&H and transfuse if patient becomes symptomatic or hemoglobin falls below 7 Medications at Discharge Home Medications alprazolam 1 mg tablet (Xanax) 1 mg PO BID anxiety 12/11/22 bupropion HCl 150 mg 24 hr tablet, extended release 150 mg PO BID mental health 12/11/22 esomeprazole magnesium 20 mg capsule,delayed release 20 mg PO DAILY reflux 12/11/22 ezetimibe 10 mg tablet 10 mg PO DAILY cholesterol 12/11/22 levothyroxine 50 mcg tablet 50 mcg PO DAILY thyroid 12/11/22 zolpidem 10 mg tablet (Ambien) 10 mg PO QHS sleep 12/11/22 docusate sodium 100 mg capsule 100 mg PO BID stool softner 03/31/23 budesonide 160 mcg-glycopyr 9 mcg-formot 4.8 mcg/actuation HFA inhaler (Breztri Aerosphere) 2 inh inhalation BID breathing 12/06/23 buspirone 15 mg tablet 7.5 mg PO BID mental health 12/06/23 polyethylene glycol 3350 17 gram/dose oral powder (Miralax) 17 g PO BID bowels 12/06/23 ropinirole 0.5 mg tablet 0.5 mg PO BID restless legs 12/06/23 warfarin 5 mg tablet 5 mg PO DAILY blood thinner 12/06/23 ondansetron HCl 4 mg tablet 4 mg PO Q6H PRN Nausea #10 tabs 12/13/23 furosemide 20 mg tablet 20 mg PO DAILY 09/14/24 tramadol 50 mg tablet 50 mg PO Q6H PRN PRN pain 09/14/24 Hospital Course Summary of Care Provided Minutes Spent on Discharge: 35 Physical Exam Narrative GENERAL: cooperative HEENT: Atraumatic; normocephalic EYES; Anicteric, Normal Conjunctiva NECK; supple, normal thyroid, RESPIRATORY: Diminished to auscultation CARDIOVASCULAR: Regular S1 S2, GI: soft, normoactive bowel sounds, : No Renal angle tenderness; EXTREMITIES: No edema, no clubbing, MUSCULOSKELETAL: no muscle wasting NEURO: Awake; no lateralizing signs. SKIN: No Rash PSYCH; Flat affect Weight / BMI Weight Weight: 67.1 kg Body Mass Index (BMI) 27.9 ABG / Lab / Microbiology Data 09/17/24 03:46 09/17/24 03:46 Laboratory: Laboratory Results - last 24 hr 09/17/24 03:46: WBC 8.3, RBC 3.35 L, Hgb 9.9 L, Hct 30.4 L, MCV 90.7, MCH 29.6, MCHC 32.6, RDW Std Deviation 43.8, RDW Coeff of Neno 13.2, Plt Count 372, MPV 9.6, Immature Gran % (Auto) 0.400, Neut % (Auto) 56.0, Lymph % (Auto) 29.8, [place] % (Auto) 9.5, Eos % (Auto) 3.6, Baso % (Auto) 0.7, Absolute Neuts (auto) 4.7, Absolute Lymphs (auto) 2.48, Nucleated RBC % 0, PT 14.8, INR 1.1, Sodium 139, Potassium 3.6, Chloride 111 H, Carbon Dioxide 23.0, Anion Gap 5, BUN 11, Creatinine 0.92, Estim Creat Clear Calc 47.01, Est GFR (MDRD) Af Amer 77, Est GFR (MDRD) Non-Af 63, BUN/Creatinine Ratio 11.9, Glucose 112 H, Calcium 8.7, Total Bilirubin 0.50, Direct Bilirubin 0.13, AST 54 H, ALT 71 H, Alkaline Phosphatase 119 H, Total Protein 6.4, Albumin 3.0 L, Globulin 3.4 D/C Instructions Discharge Diet: No restrictions Discharge Activity: Return to Normal Activity Call your doctor if you observe: Fever of 101 or Higher, Shortness of breath, Fainting spells and Chest pain DC O2, CPAP, BIPAP Needs Home O2 Discharge instructions: No Meaningful Use Info Meaningful Use Meaningful Use Diagnoses (Choose all that apply): None applicable Ischemic Stroke Statin Dosing Therapy Reference: STATIN DOSE THERAPY REFERENCE: * Patients > 75 years receive moderate or high dose statin therapy. * Patients 75 years or YOUNGER should receive HIGH intensity statin dose unless contraindicated. You will be required to document reason for non-treatment if statin daily dose does not meet guidelines. HIGH DOSE STATIN THERAPY DAILY Atorvastatin > than or = to 40 mg Rosuvastatin > than or = to 20 mg Amlodipine + Atorvastatin > than or = to 2.5/40 mg Ezetimibe + Simvastatin 10/80 mg Simvastatin 80mg Discharge Plan Admission Admit Date/Time: 09/14/24 04:06 Attending Provider: Gerson Gilliland Primary Care Provider: Jaison Hill Consulting Providers: Gerson Peters; Lobo Umanzor; Heriberto Bartholomew Discharge Orders/Prescriptions Prescriptions: Continued alprazolam [Xanax] 1 mg Tablet 1 mg PO BID levothyroxine 50 mcg Tablet 50 mcg PO DAILY zolpidem [Ambien] 10 mg Tablet 10 mg PO QHS esomeprazole magnesium 20 mg capsule,delayed release(DR/EC) 20 mg PO DAILY ezetimibe 10 mg Tablet 10 mg PO DAILY bupropion HCl 150 mg tablet extended release 24 hr 150 mg PO BID docusate sodium 100 mg capsule 100 mg PO BID Patient Comments: TAKE 1 CAPSULE BY MOUTH TWICE DAILY ropinirole 0.5 mg tablet 0.5 mg PO BID warfarin 5 mg tablet 5 mg PO DAILY buspirone 15 mg tablet 7.5 mg PO BID Breztri Aerosphere 160-9-4.8 mcg/actuation HFA aerosol inhaler 2 inh inhalation BID polyethylene glycol 3350 [Miralax] 17 gram/dose powder 17 g PO BID ondansetron HCl 4 mg Tablet 4 mg PO Q6H PRN (Reason: Nausea) Qty: 10 0RF tramadol 50 mg tablet 50 mg PO Q6H PRN PRN (Reason: pain) furosemide 20 mg tablet 20 mg PO DAILY Referrals / Follow Up: Jaison Hill MD [Primary Care Provider] - Within 1 Week Disposition Disposition (needs filled in before D/C Order can be placed): Home, Self Care Charges/Coding Visit Charges Inpatient E&M: 48856 Disch Hosp >30min
[2024-09-17 14:44] VITALS: BP 149/72; PULSE 74; RESP 16; TEMP 36.6; O2SAT 99
== END 2024-09-17 15:11 | disposition home or self-care (01) | DRG 442 ==
LOC: ED 09-14 04:13 → ICU 09-14 04:35 → PCU 09-17 07:10 → ICU 09-18 11:12
PROVIDERS: Internal Medicine; Admitting Provider Internal Medicine; Emergency Provider Emergency Medicine; Visit Provider Internal Medicine
DX: K71.9 Toxic liver disease, unspecified (principal); K56.7 Ileus, unspecified; K90.829 Short bowel syndrome, unspecified; E88.09 Other disorders of plasma-protein metabolism, not elsewhere classified; K83.8 Other specified diseases of biliary tract; N18.31 Chronic kidney disease, stage 3a; I12.9 Hypertensive chronic kidney disease with stage 1 through stage 4 chronic kidney disease, or unspecified chronic kidney disease; E03.9 Hypothyroidism, unspecified; J45.20 Mild intermittent asthma, uncomplicated; G25.81 Restless legs syndrome; F32.A Depression, unspecified; F41.9 Anxiety disorder, unspecified; M19.90 Unspecified osteoarthritis, unspecified site; E78.5 Hyperlipidemia, unspecified; K58.9 Irritable bowel syndrome, unspecified; K21.9 Gastro-esophageal reflux disease without esophagitis; D72.829 Elevated white blood cell count, unspecified; R74.01 Elevation of levels of liver transaminase levels; T39.315A Adverse effect of propionic acid derivatives, initial encounter; G44.209 Tension-type headache, unspecified, not intractable; G89.4 Chronic pain syndrome; F51.04 Psychophysiologic insomnia; Z88.0 Allergy status to penicillin; Z79.01 Long term (current) use of anticoagulants; Z79.890 Hormone replacement therapy; Z79.899 Other long term (current) drug therapy; Z86.718 Personal history of other venous thrombosis and embolism; Z90.49 Acquired absence of other specified parts of digestive tract; Z90.710 Acquired absence of both cervix and uterus
CPT/HCPCS: 36415; 71275; 74174; 74181; 80048; 80053; 80061; 80076; 81001; 82550; 82977; 83605; 83690; 83735; 84100; 84439; 84443; 84484; 85025; 85610; 86140; 93005; 94640; 94668; 94762; 97116; 97162; 97530; 97803; 99285; J2185; Q9967; A4216; J2405

== ENCOUNTER 2025-04-12 17:07 | Inpatient (IN) | payer MEDICARE, SELFPAY ==
[2025-04-12] VITALS (9 sets, daily range): BP systolic 101–169; BP diastolic 40–101; PULSE 52–70; RESP 13–19; TEMP 36.6–36.9; O2SAT 94–100; BMI 28.9; BMI 27.5
--- NOTE | 2025-04-12 17:18 | CT_ITS ---
PROCEDURE: ABDOMEN/PELVIS W IV CONT ONLY 04/12/2025 REASON FOR EXAM: PAIN TECHNIQUE: ABDOMEN/PELVIS W IV CONT ONLY Coronal and Sagittal reconstruction series were provided. CONTRAST: Isovue 370 VOLUME: 98 mL One or more dose reduction techniques were used (e.g., Automated exposure control, adjustment of the mA and/or kV according to patient size, use of iterative reconstruction technique. RADIATION DOSE SUMMARY: CTDlvol: 25 mGy DLP: 563 MGycm COMPARISON: 09/13/2024 FINDINGS: lung bases are clear. Punctate indeterminate hypodensity within the right lobe of the liver representing cyst or hemangioma measuring about 9 mm. Mild intrahepatic biliary dilatation in this patient who is status post cholecystectomy. This can often be seen. Normal spleen. Normal pancreas. No renal mass. No renal calculi. No abdominal aortic aneurysm. There is a ventral hernia which contains a portion of the loop of small bowel without secondary obstruction. No free-fluid or free air. Negative for evidence of appendicitis. No colonic wall thickening. Prior small bowel surgery is identified. CT/Abdomen/Pelvis W IV Cont ONLY IMPRESSION: Similar appearance of small bowel centrally when compared to the prior study wi th mild segmental dilatation. No significant obstruction proximally. Reading Location: [facility]
--- NOTE | 2025-04-12 17:19 | EDS_ITS ---
HPI HPI - GI History of Present Illness Chief Complaint: Abd Pain Narrative Narrative: 74-year-old female presents via EMS with abdominal pain that she has had for approximately 1 week. 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 Her surgery was performed approximately 3-1/2 years ago at [facility]. She was told that she is not supposed to eat beef or pork because it is harder to digest as she has had colon resection. However, she states that on Sunday, approximately 7 days ago she was celebrating and had a cheeseburger from [employer]. She started having abdominal pain which she thought would pass. However, she describes both epigastric and left upper quadrant abdominal pain. She had nausea and vomiting yesterday but none today. No exacerbating or alleviating factors. She describes it as both dull and achy and sharp and stabbing. It is a sharp and stabbing pain that she is having difficulty with currently. She states that she has had bowel movements where she would go a large amount, but then 2 days without having a bowel movement. No fevers or chills. [facility] Medical History Irritable bowel Scarlet fever Depression Hyperthyroidism DVT (deep venous thrombosis) CKD (chronic kidney disease), stage III Chronic anemia History of venous thromboembolism History of small bowel obstruction GERD (gastroesophageal reflux disease) HLD (hyperlipidemia) Anxiety and depression Hypothyroidism Home Medications ?Medication ?Instructions ?Recorded ?Last Taken ?Type alprazolam 1 mg tablet (Xanax) 1 mg PO BID anxiety Unknown History bupropion HCl 150 mg 24 hr tablet, 150 mg PO BID [facility] 12/11/22 Unknown History extended release esomeprazole magnesium 20 mg 20 mg PO DAILY reflux Unknown History capsule,delayed release ezetimibe 10 mg tablet 10 mg PO DAILY cholesterol 0 12/11/22 Unknown History levothyroxine 50 mcg tablet 50 mcg PO DAILY thyroid Unknown History zolpidem 10 mg tablet (Ambien) 10 mg PO QHS sleep 11/16 04/08 Unknown History docusate sodium 100 mg capsule 100 mg PO BID stool sof tner 03/31/23 Unknown History budesonide 160 mcg-glycopyr 9 2 inh inhalation BID PRN breathing 12/06/23 Unknown History mcg-formot 4.8 mcg/actuation HFA inhaler (Breztri Aerosphere) buspirone 15 mg tablet 15 mg PO BID mental health 0 12/06/23 Unknown History polyethylene glycol 3350 17 17 g PO BID bowels 4 Unknown History gram/dose oral powder (Miralax) ropinirole 0.5 mg tablet 0.5 mg PO BID PRN restless l egs 12/06/23 Unknown History warfarin 5 mg tablet 5 mg PO DAILY blood thinner 12/06/23 Unknown History ondansetron HCl 4 mg tablet 4 mg PO Q6H PRN Nausea #10 tabs 12/13/23 Unknown Rx furosemide 20 mg tablet 10 mg PO DAILY 09/14/24 Unkn own History tramadol 50 mg tablet 50 mg PO Q6H PRN PRN pain Unknown History albuterol sulfate 90 mcg/actuation 2 puff inhalation Q 6H PRN PRN 04/12/25 Unknown History aerosol inhaler wheezing nabumetone 750 mg tablet 750 mg PO Q12H PRN PRN pain 04/12/25 Unknown History Allergy/AdvReac Type Severity Reaction Status Date / Time cefdinir (From Omnicef) Allergy Hives Verified 09/13/24 20:52 codeine Allergy NEEDS Verified 09/13/24 20:52 FOLLOW-UP latex Allergy Anaphylaxis Verified 09/13/24 20:52 prochlorperazine (From Allergy NEEDS Verified 09/13/24 20:52 Compazine) FOLLOW-UP shellfish derived Allergy Anaphylaxis Verified 09/13/24 20:52 levofloxacin (From Levaquin) AdvReac Vomiting Verified 09/13/24 20:52 Dljrqxi-PWC-GhH Reductase AdvReac NEEDS Verified 09/13/24 20:52 Inhibitor FOLLOW-UP Family History Mother Heart disease COPD (chronic obstructive pulmonary disease) Father Heart disease Hypertension CAD (coronary artery disease) Myocardial infarction Surgical History History of total abdominal hysterectomy History of colon surgery History of appendectomy History of cholecystectomy Social History household members: none Smoking Status: Never smoker alcohol intake: never substance use type: does not use ROS ROS ED ROS Narrative Review of systems positive for epigastric to left upper quadrant abdominal pain. 1 episode of nausea and vomiting yesterday. Intermittent constipation. Dull and achy and sharp and stabbing pain in epigastric area and left upper quadrant. No fevers or chills. No exacerbating or alleviating factors. EXAM Physical Exam Narrative Exam Narrative: Afebrile. Vital signs noted. Nontoxic-appearing. Cardiovascular examination reveals regular rate and rhythm. Lungs are clear to auscultation bilaterally. The abdomen is soft with mild diffuse tenderness to palpation without guarding or rebound. Positive bowel sounds. Neurological examination nonfocal, nonlateralizing. No appreciable pedal edema. Const Vital Signs: 04/12/25 17:09 04/12/25 17:14 04/12/25 18:14 Temperature 98.5 F 98.4 F 98.1 F Temperature Source Oral Oral Oral Pulse Rate 70 70 52 L Respiratory Rate 18 13 18 Blood Pressure 169/101 H 101/87 H 134/62 H Blood Pressure Mean 123 91 86 Pulse Ox 98 100 100 Oxygen Delivery Method Room Air Room Air Room Air 04/12/25 19:00 04/12/25 19:50 04/12/25 20:00 Temperature 98.5 F 98.2 F Temperature Source Oral Pulse Rate 63 59 L 63 Respiratory Rate 14 16 19 H Blood Pressure 164/40 H 140/72 H 140/72 H Blood Pressure Mean 81 94 94 Pulse Ox 94 97 100 Oxygen Delivery Method Room Air Room Air 04/12/25 20:00 Temperature 98.2 F Temperature Source Temporal Pulse Rate 64 Respiratory Rate 17 Blood Pressure 140/72 H Blood Pressure Mean 94 Pulse Ox 100 Oxygen Delivery Method Room Air MDM MDM MDM Narrative Medical decision making narrative: Differential diagnosis includes but not limited to bowel obstruction from adhesions versus nonspecific abdominal pain versus gastroenteritis versus diverticulitis. I reviewed her laboratory work and she has normal white count of 8.7 with hemoglobin stable 11.4, hematocrit 33.5, platelet count normal at 287. CMP is remarkable for creatinine slightly elevated at 1.30, glucose 89. AST is low at 37 which I think is nonspecific, normal ALT and normal alk phos. Lipase normal at 31 so I doubt pancreatitis. For analgesia as she initially required fentanyl as she has a codeine allergy. However I reviewed her prior ED visit and she received morphine and Dilaudid as well. I reviewed the radiology report of the CT of the abdomen and pelvis she does have mild segmental dilatation of the small bowel centrally, but no discrete obstructive pattern. She did require a dose of Dilaudid 1 mg for analgesia. On repeat examination, she states that she is feeling improved but has continued abdominal pain. I will discuss the patient with the hospitalist for observation. I discussed patient with Dr. Queen. Disposition is assigned observation. Patient is in stable condition. History & Record Review Discussion w/independent historian: Patient Additional record(s) reviewed:: Prior ED visit and Prior labs Lab Data Attestation: I reviewed the patient's lab results. Labs: Laboratory Results - last 24 hr 04/12/25 17:20 WBC 8.7 RBC 3.79 L Hgb 11.4 L Hct 33.5 L MCV 88.4 MCH 30.1 MCHC 34.0 RDW Std Deviation 45.3 H RDW Coeff of [place] 14.0 Plt Count 287 MPV 9.7 Immature Gran % (Auto) 0.600 Neut % (Auto) 57.6 Lymph % (Auto) 33.1 [place] % (Auto) 7.2 Eos % (Auto) 0.9 Baso % (Auto) 0.6 Absolute Neuts (auto) 5.0 Absolute Lymphs (auto) 2.88 Nucleated RBC % 0 Sodium 139 Potassium 4.1 Chloride 105 Carbon Dioxide 20.7 L Anion Gap 13 BUN 15 Creatinine 1.30 H Estim Creat Clear Calc 34.34 L Est GFR (MDRD) Non-Af 43 L BUN/Creatinine Ratio 11.2 Glucose 89 Calcium 9.4 Total Bilirubin 0.76 AST 37 H ALT 23 Alkaline Phosphatase 78 Total Protein 6.9 Albumin 4.1 Globulin 2.8 Albumin/Globulin Ratio 1.4 Lipase 31 Radiography Diagnostic Testing: Clinical Impression(s) from Imaging Studies Abdomen/Pelvis CT 04/12/25 17:18 IMPRESSION: Similar appearance of small bowel centrally when compared to the prior study with mild segmental dilatation. No significant obstruction proximally. Reading Location: [facility] Management Discussion w/another healthcare provider: Hospitalist Discharge Plan Dx/Rx/DC Orders Clinical Impression: Nausea & vomiting, Abdominal pain, Intractable abdominal pain Disposition Disposition: Acute Care Hospital [facility] Discharge Date/Time: 04/12/25 20:47
[2025-04-12] MEDS: 0.9% Normal Saline (1000mL) 1,000 ML 999 ML IV (17:25)
[2025-04-12 17:31] LABS: Hematocrit 33.5 % (37-47); Hemoglobin 11.4 g/dL (12.0-15.0); Immature Granulocytes Count 0.050 X10^3/uL (0.0-0.0); Mean Corp Hgb Conc 34.0 g/dL (32-36); Mean Corpuscular Volume 88.4 fL (81-99); Mean Platelet Vol. 9.7 fl (6.2-12.0); NRBC Flagged by Analyzer 0 % (0-5); Platelet Count 287 K/mm3 (150-450); RBC Distribution Width CV 14.0 % (11.6-14.6); RBC Distribution Width SD 45.3 fl (35.1-43.9); Red Blood Count 3.79 M/mm3 (4.2-5.4); White Blood Count 8.7 K/mm3 (4.4-11.0)
[2025-04-12] MEDS: fentaNYL 100 MCG/2 ML Ampul 50 MCG IV (17:32)
--- NOTE | 2025-04-12 17:37 | CM.ED ---
Social Work Date of referral: 04/12/25 Reason for referral: No Advanced Care Directives (ACD's) on file Referred by: Social Work identification Patient provided consent for social work visit. Wall Man requested a copy of ACD's which patient agreed to bring in. Maria C Brandt, TECHNICIAN TRAINEE, PRESCHOOL TEACHER ASSISTANT
--- OUTSIDE RECORDS SUMMARY | 2025-04-12 17:47 | XMS RPT_ITS | CCD ---
Author Organization [facility] Care Team Providers Care Trains Dispatcher Supervisor Name Role Phone Isra GOLDMAN MD, Kentrell [place] Primary Care Provider Lelia Benavides RN Unavailable Unavailable Isra GOLDMAN MD, Kentrell [place] Primary Care Provider Isra GOLDMAN MD, Kentrell [place] Primary Care Provider Isra GOLDMAN MD, Kentrell [place] Primary Care Provider Silvia Hicks RN Unavailable Isra GOLDMAN MD, Kentrell [place] Primary Care Provider Dr. Jose Stanton Emergency Provider Dr. Kentrell Dhaliwal Primary Care Provider Dr. Jessica Thomas Admit Provider Dr. Jessica Thomas Attending Provider Dr. Jessica Thomas Other Provider ABEL JOSEPH Consulting Unavailable DAVID MITCHELL Consulting Unavailable LEO EMERSON M.D. Consulting UnavailMARILYN Red Consulting Unavailable SHAYLA CHAIDEZ M.D. Admitting Unavailable JD WAITE M.D. Attending Unavailable SHARON FUNEZ Consulting Unavailable ADRIEN BROWN Admitting Unavailable ANUJA WALKER Attending Unavailable MANUEL BARBOSA Consulting Unavailable LEO EMERSON M.D. Attending UnavailKENTRELL Hatch II Attending Unavailable KENTRELL DHALIWAL II Attending Unavailable Dr. Aly Fragoso Other Provider Dr. Paulo Umanzor Attending Provider Dr. Paulo Umanzor Other Provider Dr. Ivon Oliver Other Provider Dr. Marvin Edwards Attending Provider Dr. Ivon Oliver Attending Provider Dr. Ivon Oliver Referring Provider Vivek LICENSED MASS REAL ESTATE APPRAISER.ORAL AND MAXILLOFACIAL SURGEON, Radha Primary Care Provider Vivek LICENSED MASS REAL ESTATE APPRAISER.ORAL AND MAXILLOFACIAL SURGEON, Radha Primary Care Provider Vivek LICENSED MASS REAL ESTATE APPRAISER.ORAL AND MAXILLOFACIAL SURGEON, Radha Unavailable Isra GOLDMAN MD, Kentrell [place] Primary Care Provider Vivek LICENSED MASS REAL ESTATE APPRAISER.ORAL AND MAXILLOFACIAL SURGEON, Radha Primary Care Provider Fareed HERNANDEZ, Lelia Unavailable Unavailable Fabiola HERNANDEZ, Silvia Unavailable Dr. Kentrell Dhaliwal Primary Care Provider Dr. Federico Monique Emergency Provider Dr. Jessica Thomas Attending Provider Dr. Jessica Thomas Admit Provider Dr. Jessica Thomas Other Provider Dr. Paulo Umanzor Attending Provider Dr. Paulo Umanzor Other Provider Dr. Aly Fragoso Other Provider Dr. Ana Laura Lennon Attending Provider Dr. Aly Fragoso Attending Provider KAYLEE Martinez Attending Provider Isra GOLDMAN MD, Kentrell [place] Primary Care Provider Jessie Mccloud RN Unavailable Paulo Umanzor Consulting Unavailable Paulo Umanzor Attending Unavailable Kentrell Dhaliwal Primary Care Unavailable Jessica Thomas Admitting Unavailable Jessica Thmoas Consulting Unavailable Aly Fragoso Consulting Unavailable Edmundo Peters Consulting Unavailable Paulo Umanzor Attending Unavailable Kentrell Dhaliwal Primary Care Unavailable Edmundo Peters Admitting Unavailable Paulo Umanzor Consulting Unavailable Heriberto Bartholomew Consulting Unavailable Heriberto Bartholomew Attending Unavailable Edmundo Peters Attending Unavailable Ana Laura Lennon Attending Unavailable Dhaliwal, Kentrell E Primary Care Unavailable Mike Fraser Attending Unavailable Dhaliwal, Kentrell E Primary Care Unavailable Samson Gan Attending UnavailPaulo Fernandez Consulting Unavailable Aly Fragoso Attending Unavailable Isra, Kentrell E Primary Care Unavailable Jessica Thomas Admitting Unavailable Jessica Thomas Consulting Unavailable Edmundo Gilliland Referring Unavailable Isra, Kentrell E Primary Care Unavailable Edmundo Peters Admitting Unavailable Edmundo Peters Consulting Unavailable Edmundo Gilliland Attending Unavailable Paulo Umanzor Consulting Unavailable Heriberto Bartholomew Consulting Unavailable Paulo Umanzor Referring Unavailable Ra Santohsaan Attending Unavailable Edmundo Gilliland Consulting Unavailable Edmundo Gilliland Attending Unavailable Aly Fragoso Attending Unavailable Stefania Martinez Attending Unavailable Dhaliwal, Kentrell E Primary Care Unavailable Jessica Thomas Attending Unavailable Rogers HERNANDEZ, Jessie Unavailable Isra GOLDMAN MD, Kentrell [place] Primary Care Provider ISRA GOLDMAN, KENTRELL [place] Referring Unavailabl e DHALIWAL II, [facility] Primary Care Unavailabl e DHALIWAL II, KENTRELL TOLEDO Referring Unavailabl e DHALIWAL II, KENTRELL TRE Primary Care Unavailabl e DHALIWAL II, KENTRELL TOL[place]O Referring Unavailabl e DHALIWAL II, [facility] Primary Care Unavailabl e DHALIWAL II, KENTRELL TOL[place]O Attending Unavailabl e SELF Referring Unavailable ISRA II, KENTRELL TRE Primary Care Unavailabl e DHALIWAL II, [facility] Primary Care Unavailabl e DHALIWAL II, KENTRELL TOLEDO Attending Unavailabl e DHALIWAL II, KENTRELL TOLEDO Primary Care Unavailabl e DHALIWAL II, KENTRELL TOLEDO Attending Unavailabl e DHALIWAL II, KENTRELL TOLEDO Attending Unavailabl e DHALIWAL II, KENTRELL TRE Primary Care Unavailabl e DHALIWAL II, KENTRELL TOLEDO Attending Unavailabl e DHALIWAL II, KENTRELL TRE Primary Care Unavailabl e DHALIWAL II, KENTRELL TOLEDO Attending Unavailabl e DHALIWAL II, [facility] Primary Care Unavailabl e DHALIWAL II, KENTRELL TOL[place]O Referring Unavailabl e DHALIWAL II, [facility] Primary Care Unavailabl e Allergies Allergy Classification Reported Allergen(s) Allergy Type Date of Onset Reaction(s) Facility (20 sources) cefdinir; Translations: [CEFDINIR] Drug Allergy 06-22-20 Diarrhea [facility] (20 sources) Codeine; Translations: [CODEINE] Drug Allergy 06-22-20 Diarrhea [facility] (20 sources) HMG-CoA reductase inhibitor; Translations: [[id number] REDUCTASE INHIBITORS] Drug Allergy 06-22-20 Diarrhea [facility] (3 sources) HYDROmorphone Drug Allergy 06-22-20 Shortness of Breath [facility] (20 sources) Latex; Translations: [LATEX] Drug Allergy 06-22-20 Anaphylaxis [facility] (20 sources) levoFLOXacin; Translations: [LEVOFLOXACIN] Drug Allergy 06-22-20 Diarrhea [facility] (20 sources) predniSONE; Translations: [PREDNISONE] Drug Allergy 08-30-20 21 GI Upset [facility] (20 sources) Prochlorperazine; Translations: [PROCHLORPERAZINE] Drug Allergy 06-22-20 Myalgia [facility] (20 sources) Sulfonamides (Antibiotic); Translations: [SULFA (SULFONAMIDE ANTIBIOTICS)] Drug Allergy 06-15-20 20 Other: See Comments [facility] (20 sources) HMG-CoA reductase inhibitor Drug Allergy 06-22-20 Diarrhea, Intolerance [facility] (20 sources) ARIPiprazole; Translations: [ARIPIPRAZOLE] Drug Allergy 04-19-20 22 Other: See Comments [facility] (20 sources) Shellfish; Translations: [SHELLFISH CONTAINING PRODUCTS] Drug Allergy 11-30-19 13 Swelling [facility] (8 sources) Shellfish; Translations: [shellfish derived] Allergy to substance 12-12-19 23 Anaphylaxis [facility] (7 sources) Rcoieee-Viy-Koq Reductase Inhibitor Propensity to adverse reactions 12-12-19 23 NEEDS FOLLOW-UP [facility] (20 sources) Propoxyphene; Translations: [PROPOXYPHENE] Drug Allergy 06-23-20 15 Unknown [facility] (1 source) cefdinir Drug Allergy 09-13-20 [facility] (1 source) Codeine Drug Allergy 09-13-20 [facility] (1 source) Latex Drug allergy (disorder) 09-13-20 [facility] (1 source) levoFLOXacin Drug Allergy 09-13-20 [facility] (1 source) Prochlorperazine Drug Allergy 09-13-20 [facility] (1 source) Iaevuyl-Osz-Enu Reductase Inhibitor Drug allergy (disorder) 09-13-20 [facility] Medications Current Medications Medication Drug Class(es) Dates Sig (Normalized) Sig (Original) [id number] 200 actuat albuterol 0.09 mg/actuat metered dose inhaler (20 sources) beta2-Adrenergic Agonist Start: 06-16-2024 End: 03-05-2025 take 2 puff(s) by inhalation every six hours as needed for wheezing albuterol HFA (PROVENTIL HFA, VENTOLIN HFA) 90 mcg/actuation inhaler Inhale 2 puffs as instructed every 6 hours as needed for wheezing/shortnes s of breath. 18 g 03/05/2025 Active Start: 07-24-2023 End: 06-16-2024 take 2 puff(s) by inhalation every six hours as needed for wheezing albuterol HFA (PROVENTIL HFA, VENTOLIN HFA) 90 mcg/actuation inhaler Inhale 2 Puffs as instructed every 6 hours as needed for wheezing/shortness of breath. 1 Each 07/24/2023 06/16/2024 Discontinued Comment on above: Inhale 2 Puffs as in structed every 6 hours as needed for wheezing/shortness of breath. ALPRAZolam 1 mg oral tablet (20 sources) Benzodiazepine Start: 03-05-20 End: 04-30-20 take 1 tablet by mouth every twelve hours as needed ALPRAZolam (XANAX) 1 mg tablet Indications: Anxiety and depression Take 1 tablet by mouth every 12 hours as needed for up to 30 days. 60 tablet 03/31/2025 04/30/2025 Active Start: 01-29-2025 End: 02-28-2025 take 1 tablet by mouth every twelve hours as needed ALPRAZolam (XANAX) 1 mg tablet Indications: Anxiety and depression Take 1 tablet by mouth every 12 hours as needed for up to 30 days. 60 tablet 01/29/2025 02/28/2025 Active Start: 10-28-2024 End: 01-24-2025 take 1 tablet by mouth every twelve hours as needed ALPRAZolam (XANAX) 1 mg tablet Indications: Anxiety and depression Take 1 tablet by mouth every 12 hours as needed for up to 30 days. 60 tablet 12/25/2024 01/24/2025 Active Start: 01-02-2024 End: 10-26-2024 take 1 tablet by mouth every twelve hours as needed ALPRAZolam (XANAX) 1 mg tablet Indications: Anxiety and depression Take 1 tablet by mouth every 12 hours as needed for up to 30 days. 60 tablet 09/26/2024 10/26/2024 Active Start: 10-03-2023 End: 12-28-2023 take 1 tablet by mouth every twelve hours as needed ALPRAZolam (XANAX) 1 mg tablet Indications: Anxiety and depression Take 1 tablet by mouth every 12 hours as needed for up to 30 days. 60 tablet 0 11/28/2023 12/28/2023 Active Start: 04-11-2023 End: 08-07-2023 take 1 tablet by mouth every twelve hours as needed ALPRAZolam (XANAX) 1 mg tablet Indications: Anxiety and depression Take 1 tablet by mouth every 12 hours as needed for up to 30 days. 60 tablet 0 07/05/2023 08/07/2023 Discontinued Start: 03-09-2023 End: 04-08-2023 take 1 tablet by mouth every twelve hours as needed ALPRAZolam (XANAX) 1 mg tablet Indications: Anxiety and depression Take 1 tablet by mouth every 12 hours as needed for up to 30 days. 60 tablet 0 03/09/2023 04/08/2023 Active Start: 12-11-2022 take 1 tablet by lindsey twice daily Alprazolam (Xanax) 1 mg Tablet Active 1 MG PO TWICE A DAY December 11, 2022 12:00am Start: 11-14-2022 End: 02-08-2023 take 1 tablet by mouth every twelve hours as needed ALPRAZolam (XANAX) 1 mg tablet Indications: Anxiety and depression Take 1 tablet by mouth every 12 hours as needed for up to 30 days. 60 tablet 0 01/09/2023 02/08/2023 Active Start: 10-13-2022 End: 11-12-2022 take 1 tablet by mouth every twelve hours as needed ALPRAZolam (XANAX) 1 mg tablet Indications: Anxiety and depression TAKE 1 TABLET BY MOUTH EVERY 12 HOURS NEEDED 60 tablet 0 10/13/2022 11/12/2022 Active Start: 02-22-2022 End: 09-15-2022 take 1 tablet by mouth every twelve hours as needed ALPRAZolam (XANAX) 1 mg tablet Indications: Anxiety and depression TAKE 1 TABLET BY MOUTH EVERY 12 HOURS NEEDED 60 tablet 0 08/16/2022 09/14/2022 Discontinued Start: 01-24-2022 End: 02-23-2022 take 1 tablet by mouth twice daily ALPRAZolam (XANAX) 1 mg tablet Indications: Anxiety and depression TAKE 1 TABLET BY MOUTH TWICE DAILY 60 tablet 0 01/24/2022 02/22/2022 Discontinued Start: 11-15-2021 End: 12-15-2021 take 1 tablet by mouth twice daily ALPRAZolam (XANAX) 1 mg tablet Indications: Anxiety and depression TAKE 1 TABLET BY MOUTH TWICE DAILY 60 tablet 0 11/15/2021 12/15/2021 End: 02-28-2022 alprazolam (XANAX ORAL) Take by mouth. 0 02/28/2022 Discontinued (Course of therapy completed) alprazolam (XANA X ORAL) Take by mouth. 0 Active Comment on above: TAKE 1 TABLET BY LINDSEY TH TWICE DAILY Take by mouth. Take 1 tablet by lindsey th every 12 hours as needed for up to 30 days. TAKE 1 TABLET BY LINDSEY TH EVERY 12 HOURS NEEDED amoxicillin 875 mg oral tablet (4 sources) Penicillin-class Antibacterial Start: 06-25-20 End: 07-02-20 take 1 tablet by mouth twice daily amoxicillin (AMOXIL) 875 mg tablet Take 1 tablet by mouth two times a day for 7 days. 14 tablet 06/25/2024 07/02/2024 Active atropine sulfate 0.025 mg / diphenoxylate hydrochloride 2.5 mg oral tablet (20 sources) Anticholinergic, Cholinergic Muscarinic Antagonist, Antidiarrheal Start: 12-06-19 End: 12-16-19 take 1 tablet by mouth every six hours as needed for diarrhea and diarrhea diphenoxylate-atrop ine (LOMOTIL) 2.5-0.025 mg per tablet Indications: Diarrhea, unspecified type Take 1 tablet by mouth four times a day as needed for up to 10 days. 40 tablet 12/06/2023 Active Start: 01-07-2021 take 1 tablet by lindsey th four times daily as needed for diarrhea diphenoxylate-atropine (LOMOTIL) 2.5-0.025 mg per tablet Indications: Parkinson's disease ([facility]) , Gastroesophageal reflux disease, unspecified whether esophagitis present , Type 2 diabetes mellitus without complication, without long-term current use of insulin ([facility]) , Anxiety and depression , Irritable bowel syndrome with both constipation and diarrhea Take 1 tablet by mouth four times daily as needed for Diarrhea for up to 5 days. 20 tablet 0 01/07/2021 Active Comment on above: Take 1 tablet by lindsey four times daily as needed for Diarrhea for up to 5 days. Take 1 tablet by lindsey four times a day as needed for up to 10 days. betamethasone 0.5 mg/ml / clotrimazole 10 mg/ml topical cream (20 sources) Azole Antifungal, Corticosteroid Start: 04-18-2023 End: 10-07-2024 clotrimazole-betameth asone (LOTRISONE) cream Apply to affected area two times a day. 45 g 1 10/07/2024 Active Comment on above: Apply to affected ar ea twice daily. Znqnpymgct-Qokainut-Vyulc terol (20 sources) Corticosteroid, beta2-Adrenergic Agonist Start: 12-06-2023 Pkeruqlove-Dbhgpphs-E ormoterol (Breztri Aerosphere) 160-9-4.8 mcg/actuation HFA aerosol inhaler Active 2 INH INHALATION TWICE A DAY December 06, 2023 12:00am Start: 12-06-2023 Budesonide-Gly copyr-Formoterol [Budesonide 160 Mcg-Glycopyr 9 Mcg-Formot 4.8 Mcg/Actuation Hfa Inhaler] (Budesonide 160 Mcg-Glycopyr 9 Mcg-Formot 4.8 ) 160-9-4.8 mcg/actuation HFA aerosol inhaler Active 2 INH INHALATION TWICE A DAY December 06, 2023 12:00am Start: 07-24-2023 take 2 puff(s) by inhalation twice daily qkxofjykon-guxbqpyo-pgymnherlr (BREZTRI AEROSPHERE) 160-9-4.8 mcg/actuation HFA aerosol inhaler Inhale 2 Puffs as instructed two times a day. 1 Each 07/24/2023 Active Comment on above: Inhale 2 Puffs as in structed two times a day. 24 hr buPROPion hydrochloride 150 mg extended release oral tablet (20 sources) Aminoketone Start: take 2 tablets by mouth once daily buPROPion XL (WELLBUTRIN XL) 150 mg 24 hr tablet Take 2 tablets by mouth once daily. 180 tablet 1 05/09/2023 Active Start: 12-11-2022 take 150 mg by mouth twice claire ly Bupropion Hcl Active 150 MG PO TWICE A DAY December 11, 2022 12:00am Start: 08-30-2021 End: 11-23-2022 take 2 tablets by mouth once daily buPROPion XL (WELLBUTRIN XL) 150 mg 24 hr tablet Take 2 tablets by mouth once daily. 180 tablet 1 11/23/2022 Active Comment on above: Take 2 tablets by mo [facility] once daily. Take 150 mg by mouth once daily. Take 1 tablet by lindsey once daily. busPIRone hydrochloride 15 mg oral tablet (20 sources) Start: 03-03-2025 End: 06-01-2025 take 1 tablet by mouth twice daily busPIRone (BUSPAR) 15 mg tablet Indications: Anxiety and depression Take 1 tablet by mouth two times a day. 60 tablet 2 03/03/2025 06/01/2025 Active Start: 01-02-2025 End: 03-03-2025 take 0.5 tablet by mouth twice daily busPIRone (BUSPAR) 15 mg tablet Indications: Anxiety and depression Take 0.5 tablets by mouth two times a day. 30 tablet 5 01/02/2025 03/03/2025 Discontinued Start: 09-03-2024 End: 01-01-2025 take 1 tablet by mouth three times daily busPIRone (BUSPAR) 15 mg tablet Indications: Anxiety and depression Take 1 tablet by mouth three times a day. 90 tablet 1 09/03/2024 01/01/2025 Discontinued Start: 08-12-2024 End: 09-03-2024 take 1 tablet by mouth twice daily busPIRone (BUSPAR) 15 mg tablet Indications: Anxiety and depression Take 1 tablet by mouth two times a day. 60 tablet 5 08/12/2024 09/03/2024 Discontinued Start: 12-06-2023 take 7.5 mg by mouth twice daily Buspirone Active 7.5 MG PO TWICE A DAY December 06, 2023 12:00am Start: 11-28-2023 End: 08-12-2024 take 0.5 tablet by mouth twice daily busPIRone (BUSPAR) 15 mg tablet Indications: Anxiety and depression Take 0.5 tablets by mouth two times a day. 30 tablet 5 01/02/2024 08/12/2024 Discontinued Comment on above: Take 0.5 tablets by mouth two times a day. citalopram 20 mg oral tablet (20 sources) Serotonin Reuptake Inhibitor Start: End: take 1 tablet by mouth once daily citalopram (CELEXA) 20 mg tablet Take 1 tablet by mouth once daily. 30 tablet 1 07/29/2024 Active clindamycin 300 mg oral capsule (8 sources) Lincosamide Antibacterial Start: End: take 1 capsule by mouth every eight hours clindamycin (CLEOCIN) 300 mg capsule Take 1 capsule by mouth every 8 hours for 7 days. 21 capsule 09/12/2024 09/19/2024 Active Start: 04-19-2022 End: 04-26-2022 take 1 capsule by mouth three times daily clindamycin (CLEOCIN HCL) 300 mg capsule Take 1 capsule by mouth three times daily for 7 days. 21 capsule 0 04/19/2022 04/26/2022 Active Comment on above: Take 1 capsule by mo [facility] three times daily for 7 days. cyclobenzaprine hydrochloride 10 mg oral tablet (20 sources) Muscle Relaxant Start: take 1 tablet by mouth every eight hours as needed cyclobenzaprine (FLEXERIL) 10 mg tablet Take 1 tablet by mouth three times daily as needed. 30 tablet 11/23/2022 Active Comment on above: [facility] dicyclomine hydrochloride 20 mg oral tablet (20 sources) Anticholinergic Start: 023 End: Dicyclomine Discontinued MG March 31, 2023 12:00am December 06, 2023 5:22pm Start: 12-13-2022 End: 07-05-2023 take 1 tablet by mouth three times daily dicyclomine (BENTYL) 20 mg tablet Take 1 tablet by mouth three times a day. 90 tablet 1 07/05/2023 Active Start: 12-11-2022 End: 03-18-2023 take 20 mg by mouth three times daily before mealtime Dicyclomine Discontinued 20 MG PO THREE TIMES DAILY BEFORE MEALS December 11, 2022 12:00am March 18, 2023 4:23pm Start: 02-16-2022 End: 02-23-2022 take 1 tablet by mouth three times daily dicyclomine (BENTYL) 20 mg tablet Indications: Parkinson's disease (HCC) , Gastroesophageal reflux disease, unspecified whether esophagitis present , Type 2 diabetes mellitus without complication, without long-term current use of insulin (HCC) , Anxiety and depression , Irritable bowel syndrome with both constipation and diarrhea Take 1 tablet by mouth three times daily for 7 days. 21 tablet 1 02/16/2022 02/23/2022 Active Comment on above: Take 1 tablet by lindsey three times daily for 7 days. Take 1 tablet by lindsey th three times daily. Take 1 tablet by lindsey th three times a day. docusate sodium 100 mg oral capsule (20 sources) Start: 03-31-2023 Docusate Sodium Active MG PO March 31, 2023 12:00am Start: 08-02-2022 End: 03-18-2023 take 1 capsule by mouth twice daily docusate sodium (COLACE) 100 mg capsule Take 1 capsule by mouth twice daily. 60 capsule 5 08/02/2022 Active Start: 01-05-2022 End: 02-22-2022 take 1 capsule by mouth twice daily docusate sodium (COLACE) 100 mg capsule Take 1 capsule by mouth twice daily. 60 capsule 5 02/22/2022 Active Comment on above: Take 1 capsule by mo [facility] twice daily. enteric contrast (will be provided with radiology test) (2 sources) Start: 12-05-2021 End: 12-06-2021 enteric contrast (will be provided with radiology test) For CT ABD/PEL W IVCON Routine order Administer, As Directed One Time Only, via Oral, Rectal, both Oral and Rectal, Enteric Tube, Stoma or Indwelling Catheter, Enteric Contrast as designated per enteric contrast guidelines 1 Each 0 12/05/2021 12/06/2021 Active Comment on above: For CT ABD/PEL W IVC ON Routine order Administer, As Directed One Time Only, via Oral, Rectal, both Oral and Rectal, Enteric Tube, Stoma or Indwelling Catheter, Enteric Contrast as designated per enteric contrast guidelines ezetimibe 10 mg oral tablet (20 sources) Dietary Cholesterol Absorption Inhibitor Start: 08-02-2022 End: 12-09-2024 take 1 tablet by mouth once daily ezetimibe (ZETIA) 10 mg tablet Take 1 tablet by mouth once daily. 30 tablet 3 12/09/2024 Active Start: 06-06-2022 take 1 tablet by lindsey th once daily ezetimibe (ZETIA) 10 mg tablet Take 1 tablet by mouth once daily. 30 tablet 3 06/06/2022 Active Start: 05-03-2022 End: 05-30-2022 take 1 tablet by mouth once daily ezetimibe (ZETIA) 10 mg tablet Take 1 tablet by mouth once daily. 30 tablet 3 05/03/2022 05/30/2022 Discontinued (Discontinued by Patient) Comment on above: Take 1 tablet by lindsey th once daily. ferrous gluconate 27 mg oral tablet (20 sources) Start: 4 End: 4 take 1 tablet by mouth once daily ferrous gluconate 236 mg (27 mg iron) tab Take 1 tablet by mouth once daily. 30 tablet 5 08/12/2024 Active 30 actuat fluticasone furoate 0.1 mg/actuat / umeclidinium 0.0625 mg/actuat / vilanterol 0.025 mg/actuat dry powder inhaler (14 sources) Anticholinergic, Corticosteroid, beta2-Adrenergic Agonist Start: 5 take 1 puff(s) by inhalation once daily fluticasone-umeclid in-vilanter (TRELEGY ELLIPTA) 100-62.5-25 mcg inhalation powder Inhale 1 Puff as instructed once daily. 1 Each 09/26/2024 Active furosemide 40 mg oral tablet (20 sources) Loop Diuretic Start: End: 5 take 1 tablet by mouth once daily furosemide (LASIX) 40 mg tablet Take 1 tablet by mouth once daily. 30 tablet 2 01/08/2025 04/08/2025 Active Start: 09-03-2024 End: 01-05-2025 take 1 tablet by mouth once daily furosemide (LASIX) 20 mg tablet Take 1 tablet by mouth once daily. 30 tablet 2 10/07/2024 01/05/2025 Active 12 hr hyoscyamine sulfate 0.375 mg extended release oral tablet (20 sources) Start: 01-18-2023 End: 07-24-2023 take 1 tablet by mouth twice daily hyoscyamine SR (LEVBID) 0.375 mg 12 hr tablet Take 1 tablet by mouth two times a day. 60 tablet 5 07/24/2023 Active Start: 04-19-2022 End: 05-30-2022 take 1 tablet by mouth twice daily hyoscyamine SR (LEVBID) 0.375 mg 12 hr tablet Take 1 tablet by mouth twice daily. 60 tablet 0 04/19/2022 05/30/2022 Discontinued (Discontinued by Patient) Start: 01-05-2022 End: 02-28-2022 take 1 tablet by mouth twice daily hyoscyamine (LEVSIN) 0.125 mg tablet Take 1 tablet by mouth twice daily. 28 tablet 0 01/13/2022 02/28/2022 Discontinued (Course of therapy completed) Comment on above: Take 1 tablet by lindsey th twice daily. Take 1 tablet by lindsey th two times a day. iv contrast (will be provided with radiology test) (2 sources) Start: 12-06-19 End: 12-07-19 iv contrast (will be provided with radiology test) CT ABD/PEL -Inject, intravenously, once for 1 dose.No IV access, insert saline lock prior to the beginning of sedation, infusion, injection of imaging exam. Discontinue saline lock post exam. If Pt. has a central line or IVAD, may access for administration according to line specific nursing protocol. Once exam is complete flush line and de-access according to line specific nursing protocol in the CT contrast administration guidelines link. 1 Each 0 12/05/2021 12/06/2021 Active Comment on above: CT ABD/PEL -Inject, intravenously, once for 1 dose.No IV access, insert saline lock prior to the beginning of sedation, infusion, injection of imaging exam. Discontinue saline lock post exam. If Pt. has a central line or IVAD, may access for administration according to line specific nursing protocol. Once exam is complete flush line and de-access according to line specific nursing protocol in the [place] contrast administration guidelines link. levothyroxine sodium 0.05 mg oral tablet (20 sources) l-Thyroxine Start: 08-30-20 End: 12-10-19 take 1 tablet by mouth once daily levothyroxine (SYNTHROID) 50 mcg tablet Indications: Chronic insomnia Take 1 tablet by mouth once daily. 90 tablet 1 12/09/2024 Active Comment on above: Take 1 tablet by lindsey once daily. nabumetone 750 mg oral tablet (20 sources) Nonsteroidal Anti-inflammatory Drug Start: 02-19-20 take 1 tablet by mouth every twelve hours as needed nabumetone (RELAFEN) 750 mg tablet Take 1 tablet by mouth every 12 hours as needed for pain. 60 tablet 2 02/18/2025 Active Start: 09-03-2024 End: 01-05-2025 take 1 tablet by mouth every twelve hours as needed nabumetone (RELAFEN) 750 mg tablet Take 1 tablet by mouth every 12 hours as needed for pain. 28 tablet 3 10/07/2024 01/05/2025 Active naphazoline hydrochloride 0.25 mg/ml / pheniramine maleate 3 mg/ml ophthalmic solution (20 sources) Start: 06-25-2024 take 2 drop(s) into the eye(s) every six hours as needed naphazoline-pheniramine eye drops (NAPHCON-A) 0.025-0.3 % ophthalmic solution Use 2 Drops in the left eye every 6 hours as needed. 15 mL 06/25/2024 Active nitrofurantoin, macrocrystals 25 mg / nitrofurantoin, monohydrate 75 mg oral capsule (13 sources) Nitrofuran Antibacterial Start: 04-18-2023 End: 05-16-2023 take 1 capsule by mouth twice daily, then take 1 capsule by mouth once daily nitrofurantoin monohydrate and macrocrystal (MACROBID) 100 mg capsule Take 1 capsule by mouth twice daily for 14 days, THEN 1 capsule once daily for 14 days. 42 capsule 0 04/18/2023 05/16/2023 Active Start: 09-05-2022 End: 09-15-2022 take 1 capsule by mouth twice daily nitrofurantoin monohydrate and macrocrystal (MACROBID) 100 mg capsule Take 1 capsule by mouth twice daily for 10 days. 20 capsule 0 09/05/2022 09/15/2022 Start: 07-10-2022 End: 07-20-2022 take 1 capsule by mouth twice daily nitrofurantoin monohydrate and macrocrystal (MACROBID) 100 mg capsule Take 1 capsule by mouth twice daily for 10 days. 20 capsule 0 07/10/2022 07/20/2022 Active Start: 06-21-2022 End: 07-01-2022 take 1 capsule by mouth twice daily nitrofurantoin monohydrate and macrocrystal (MACROBID) 100 mg capsule Take 1 capsule by mouth twice daily for 10 days. 20 capsule 0 06/21/2022 07/01/2022 Start: 05-30-2022 End: 06-09-2022 take 1 capsule by mouth twice daily nitrofurantoin monohydrate and macrocrystal (MACROBID) 100 mg capsule Take 1 capsule by mouth twice daily for 10 days. 20 capsule 0 05/30/2022 06/09/2022 Active Start: 02-16-2022 End: 02-23-2022 take 1 capsule by mouth twice daily nitrofurantoin monohydrate and macrocrystal (MACROBID) 100 mg capsule Take 1 capsule by mouth twice daily for 7 days. 14 capsule 1 02/16/2022 02/23/2022 Active Comment on above: Take 1 capsule by mo [facility] twice daily for 7 days. Take 1 capsule by mo [facility] twice daily for 10 days. Take 1 capsule by mo [facility] twice daily for 14 days, THEN 1 capsule once daily for 14 days. omeprazole 40 mg delayed release oral capsule (20 sources) Proton Pump Inhibitor Start: 09-26-2024 take 1 capsule by mouth twice daily omeprazole (PRILOSEC) 40 mg capsule Take 1 capsule by mouth two times a day. 180 capsule 1 09/26/2024 Active Start: 11-23-2022 End: 09-26-2024 take 1 capsule by mouth once daily omeprazole (PRILOSEC) 40 mg capsule Take 1 capsule by mouth once daily. 90 capsule 1 09/03/2024 09/26/2024 Discontinued Start: 10-03-2019 End: 04-19-2022 omeprazole (PRILOSEC) 20 mg capsule Take 40 mg by mouth. 0 10/03/2019 04/19/2022 Discontinued (Course of therapy completed) Comment on above: Take 40 mg by mouth. Take 1 capsule by mo uth once daily. ondansetron 8 mg oral tablet (20 sources) Serotonin-3 Receptor Antagonist Start: take 1 tablet by mouth every eight hours as needed ondansetron orally disintegrating (ZOFRAN ODT) 4 mg disintegrating tablet Take 1 tablet by mouth every 8 hours as needed for nausea/vomiting. 21 tablet 10/03/2023 Active Start: 03-27-2023 take 1 tablet by lindsey th every eight hours as needed ondansetron orally disintegrating (ZOFRAN ODT) 4 mg disintegrating tablet Take 1 tablet by mouth every 8 hours as needed for nausea/vomiting. 21 tablet 0 03/27/2023 Active Start: 03-20-2023 take 1 tablet by lindsey th every eight hours as needed ondansetron orally disintegrating (ZOFRAN ODT) 4 mg disintegrating tablet Take 1 tablet by mouth every 8 hours as needed for nausea/vomiting. 10 tablet 0 03/20/2023 Active Start: 12-11-2022 End: 12-13-2023 take 1 tablet by mouth every six hours as needed ondansetron (ZOFRAN) 4 mg tablet Take 1 tablet by mouth every 6 hours as needed. 30 tablet 1 07/05/2023 Active Start: 08-02-2022 End: 06-16-2024 take 1 tablet by mouth every eight hours as needed ondansetron (ZOFRAN) 8 mg tablet Take 1 tablet by mouth every 8 hours as needed for nausea/vomiting. 30 tablet 3 06/16/2024 Active Start: 12-20-2021 End: 12-30-2021 take 1 tablet by mouth every eight hours as needed ondansetron orally disintegrating (ZOFRAN ODT) 4 mg disintegrating tablet Take 1 tablet by mouth every 8 hours as needed for nausea/vomiting for up to 10 days. 30 tablet 1 12/20/2021 12/30/2021 Active Start: 09-14-2021 End: 05-30-2022 take 1 tablet by mouth every eight hours as needed ondansetron (ZOFRAN) 8 mg tablet Take 1 tablet by mouth every 8 hours as needed for nausea/vomiting. 30 tablet 1 04/19/2022 05/30/2022 Discontinued (Course of therapy completed) Start: 05-30-2021 take 1 tablet by lindsey th every eight hours as needed ondansetron orally disintegrating (ZOFRAN ODT) 8 mg disintegrating tablet Take 1 tablet by mouth every 8 hours as needed for nausea/vomiting. 30 tablet 0 05/30/2021 Active Comment on above: Take 1 tablet by lindsey th every 8 hours as needed for nausea/vomiting. Take 1 tablet by lindsey th every 8 hours as needed for nausea/vomiting for up to 10 days. Take 1 tablet by lindsey th every 6 hours as needed. polyethylene glycol 3350 57288 mg powder for oral solution (20 sources) Osmotic Laxative Start: Polyethylene Glycol 3350 (Miralax) 17 gram/dose powder Active 17 GM PO TWICE A DAY December 06, 2023 12:00am promethazine hydrochloride 25 mg oral tablet (20 sources) Phenothiazine Start: End: take 1 tablet by mouth every six hours as needed for nausea and nausea promethazine (PHENERGAN) 25 mg tablet Indications: Nausea Take 1 tablet by mouth every 6 hours as needed. 30 tablet 5 11/10/2024 Active Comment on above: Take 1 tablet by lindsey th every 6 hours as needed. rOPINIRole 0.5 mg oral tablet (20 sources) Nonergot Dopamine Agonist Start: End: take 1 tablet by mouth twice daily rOPINIRole (REQUIP) 0.5 mg tablet Take 1 tablet by mouth two times a day. 60 tablet 5 11/24/2024 Active Comment on above: Take 1 tablet by lindsey th two times a day. simethicone 250 mg oral capsule (20 sources) Start: take 1 capsule by mouth three times daily simethicone 250 mg cap Take 1 capsule by mouth three times a day. 90 capsule 07/24/2023 Active Start: 01-05-2022 End: 07-21-2022 take 1 capsule by mouth twice daily simethicone 250 mg cap Take 1 capsule by mouth twice daily. 28 capsule 0 01/13/2022 07/21/2022 Discontinued (Course of therapy completed) Comment on above: Take 1 capsule by mo [facility] twice daily. Take 1 capsule by mo [facility] three times a day. sodium fluoride 0.011 mg/mg toothpaste (20 sources) Start: 03-29-2022 SF 5000 PLUS 1.1 % dental cream 03/29/2022 Active sucralfate 1000 mg oral tablet (18 sources) Aluminum Complex Start: 09-26-2024 take 1 tablet by mouth four times daily sucralfate (CARAFATE) 1 gram tablet Take 1 tablet by mouth four times daily. 120 tablet 1 09/26/2024 Active Start: 12-06-2023 End: 12-16-2023 take 1 tablet by mouth four times daily sucralfate (CARAFATE) 1 gram tablet Indications: Gastroesophageal reflux disease, unspecified whether esophagitis present Take 1 tablet by mouth four times daily for 10 days. 40 tablet 0 12/06/2023 12/16/2023 Active Start: 08-02-2022 End: 09-01-2022 take 10 mL by mouth at bedtime sucralfate (CARAFATE) 100 mg/mL suspension Take 10 mL by mouth before meals and at bedtime. 1200 mL 0 08/02/2022 09/01/2022 Active Comment on above: Take 10 mL by mouth before meals and at bedtime. Take 1 tablet by lindsey four times daily for 10 days. warfarin sodium 5 mg oral tablet (20 sources) Vitamin K Antagonist Start: 11-28-2023 End: 09-12-2024 take 1 tablet by mouth once daily warfarin (COUMADIN) 5 mg tablet Indications: Chronic deep vein thrombosis (DVT) of proximal vein of lower extremity, unspecified laterality (HCC) Take 1 tablet by mouth once daily. 30 tablet 5 09/12/2024 Active Comment on above: Take 1 tablet by lindsey once daily. Completed/Discontinued Medications Medication Drug Class(es) Dates Sig (Normalized) Sig (Original) acetaminophen 325 mg oral tablet (17 sources) Start: 05-05-2020 End: 05-30-2022 take 2 tablets by mouth every six hours as needed acetaminophen (TYLENOL) 325 mg tablet Take 650 mg by mouth every 6 hours as needed. 0 05/05/2020 05/30/2022 Discontinued (Discontinued by Patient) Comment on above: Take 650 mg by mouth every 6 hours as needed. acetaminophen 325 mg / HYDROcodone bitartrate 5 mg oral tablet (3 sources) Opioid Agonist Start: 11-24-2021 HYDROcodone-acetami nophen (NORCO) 5-325 mg per tablet apixaban 5 mg oral tablet (20 sources) Factor Xa Inhibitor Start: 11-09-2021 End: 12-06-2023 take 1 tablet by mouth twice daily Apixaban (Eliquis) 5 mg Tablet Discontinued 5 MG PO TWICE A DAY December 11, 2022 12:00am December 06, 2023 5:21pm Comment on above: Take 1 tablet by lindsey twice daily. celecoxib 200 mg oral capsule (5 sources) Nonsteroidal Anti-inflammatory Drug Start: 01-05-2022 End: 01-13-2022 take 1 capsule by mouth every twelve hours as needed celecoxib (CELEBREX) 200 mg capsule Take 1 capsule by mouth twice daily as needed for pain. 28 capsule 0 01/05/2022 01/13/2022 Discontinued (Discontinued by Patient) Comment on above: Take 1 capsule by mo [facility] twice daily as needed for pain. escitalopram 20 mg oral tablet (20 sources) Serotonin Reuptake Inhibitor Start: 05-24-2021 End: 02-28-2022 take 1 tablet by mouth once daily escitalopram oxalate (LEXAPRO) 20 mg tablet Take 1 tablet by mouth once daily. 90 tablet 2 05/24/2021 02/28/2022 Discontinued (Course of therapy completed) Comment on above: Take 1 tablet by lindsey once daily. esomeprazole 20 mg delayed release oral tablet (20 sources) Proton Pump Inhibitor Start: 12-11-2022 End: 04-18-2023 take 1 tablet by mouth once daily esomeprazole magnesium 20 mg TbEC Take 1 tablet by mouth once daily. 0 12/11/2022 04/18/2023 Discontinued (Course of therapy completed) Start: 12-11-2022 take 20 mg by mouth once daily Esomeprazole Magnesium Active 20 MG PO DAILY December 11, 2022 12:00am Start: 08-02-2022 End: 11-23-2022 take 1 capsule by mouth twice daily before mealtime esomeprazole (NEXIUM) 20 mg capsule Take 1 capsule by mouth twice daily before meals. 60 capsule 0 08/02/2022 11/23/2022 Discontinued (Course of therapy completed) Start: 08-18-2020 End: 12-21-2021 take 1 capsule by mouth once daily, then take 6 capsules by mouth in the morning esomeprazole (NEXIUM) 20 mg capsule TAKE 1 CAPSULE BY MOUTH DAILY (6 AM) 90 capsule 2 12/21/2021 Active Comment on above: Take 1 capsule by mo ut DAILY (6 AM). TAKE 1 CAPSULE BY MO UT DAILY (6 AM) Take 1 capsule by mo ut twice daily before meals. [facility] ferrous sulfate 325 mg oral tablet (17 sources) Start: 02-20-20 End: 05-30-20 ferrous sulfate 325 mg (65 mg iron) tablet Take 325 mg by mouth. 0 02/20/2020 05/30/2022 Discontinued (Discontinued by Patient) Comment on above: Take 325 mg by mouth . gabapentin 300 mg oral capsule (15 sources) Anti-epileptic Agent take 1 capsule by mouth three times daily gabapentin (NEURONTIN) 300 mg capsule Take 300 mg by mouth three times daily. 0 Active Comment on above: Take 300 mg by mouth three times daily. ibuprofen 600 mg oral tablet (1 source) Nonsteroidal Anti-inflammatory Drug Start: 08-30-20 End: 09-04-20 take 1 tablet by mouth three times daily ibuprofen (MOTRIN) 600 mg tablet Take 600 mg by mouth three times a day. 08/30/2024 09/04/2024 lubiprostone 0.008 mg oral capsule (15 sources) Chloride Channel Activator Start: 01-06-20 End: 01-14-20 take 1 capsule by mouth twice daily at mealtime lubiprostone (AMITIZA) 8 mcg capsule Take 1 capsule by mouth twice daily with meals. 28 capsule 0 01/13/2022 Active Comment on above: Take 1 capsule by mo [facility] twice daily with meals. mirtazapine 30 mg oral tablet (15 sources) Start: 07-04-20 mirtazapine (REMERON) 30 mg tablet TAKE 1 TABLET AT BEDTIME 90 tablet 1 07/04/2021 Active Comment on above: TAKE 1 TABLET AT BED TIME multivitamin tablet (17 sources) Start: 04-29-20 End: 05-30-20 take 1 tablet by mouth once daily multivitamin tablet Take 1 tablet by mouth once daily. 0 04/29/2019 05/30/2022 Discontinued (Course of therapy completed) Start: 04-29-2019 take 1 tablet by lindsey th once daily multivitamin tablet Take 1 tablet by mouth once daily. 0 04/29/2019 Active Comment on above: Take 1 tablet by lindsey th once daily. sertraline 100 mg oral tablet (20 sources) Serotonin Reuptake Inhibitor Start: 04-19-2022 End: 05-30-2022 take 1 tablet by mouth once daily sertraline (ZOLOFT) 100 mg tablet Take 1 tablet by mouth once daily. 30 tablet 3 04/19/2022 05/30/2022 Discontinued (Discontinued by Patient) Start: 02-28-2022 End: 04-19-2022 take 1 tablet by mouth once daily sertraline (ZOLOFT) 50 mg tablet TAKE 1 TABLET BY MOUTH ONCE DAILY 30 tablet 0 04/04/2022 04/19/2022 Discontinued (Changing Therapy/Dosage Form) Comment on above: Take 1 tablet by lindsey once daily. TAKE 1 TABLET BY LINDSEY TH ONCE DAILY tiZANidine 4 mg oral capsule (20 sources) Central alpha-2 Adrenergic Agonist Start: 2 End: 2 take 1 capsule by mouth three times daily as needed tiZANidine HCl (ZANAFLEX) 4 mg capsule Indications: Myalgias TAKE 1 CAPSULE BY MOUTH THREE TIMES DAILY NEEDED 30 capsule 0 05/04/2022 05/30/2022 Discontinued (Discontinued by Patient) Comment on above: Take 4 mg by mouth t hree times daily as needed. Take 1 capsule by mo [facility] three times daily as needed. TAKE 1 CAPSULE BY MO [facility] THREE TIMES DAILY NEEDED traMADol hydrochloride 50 mg oral tablet (20 sources) Opioid Agonist Start: 3 End: take 1 tablet by mouth every six hours as needed traMADol (ULTRAM) 50 mg tablet Indications: Generalized abdominal pain Take 1 tablet by mouth every 6 hours as needed for up to 7 days. 28 tablet 09/03/2024 09/10/2024 Start: 03-20-2023 take 1 tablet by lindsey th every six hours as needed traMADol (ULTRAM) 50 mg tablet Indications: Small bowel obstruction (HCC) Take 1 tablet by mouth every 6 hours as needed. 10 tablet 0 03/20/2023 Active Start: 11-14-2021 End: 04-19-2022 traMADol (ULTRAM) 50 mg tabl et Comment on above: Take 1 tablet by lindsey th every 6 hours as needed. valACYclovir 1000 mg oral tablet (2 sources) Herpesvirus Nucleoside Analog DNA Polymerase Inhibitor, Herpes Simplex Virus Nucleoside Analog DNA Polymerase Inhibitor, Herpes Zoster Virus Nucleoside Analog DNA Polymerase Inhibitor Start: 3 End: 3 take 1 tablet by mouth three times daily valACYclovir (VALTREX) 1 gram Take 1 tablet by mouth three times daily for 7 days. 21 tablet 0 04/18/2023 04/25/2023 Comment on above: Take 1 tablet by lindsey th three times daily for 7 days. zolpidem tartrate 10 mg oral tablet (20 sources) gamma-Aminobutyric Acid-ergic Agonist Start: 3 End: take 1 tablet by mouth at bedtime as needed zolpidem (AMBIEN) 10 mg Indications: Chronic insomnia Take 1 tablet by mouth at bedtime as needed for up to 90 days. 30 tablet 2 01/02/2025 03/31/2025 Discontinued Start: 10-31-2022 End: 01-29-2023 take 1 tablet by mouth once daily at bedtime as needed zolpidem (AMBIEN) 10 mg Indications: Chronic insomnia TAKE 1 TABLET BY MOUTH EVERY DAY AT BEDTIME NEEDED FOR INSOMNIA 30 tablet 2 10/31/2022 01/29/2023 Discontinued Start: 08-02-2022 End: 10-31-2022 take 1 tablet by mouth at bedtime as needed zolpidem (AMBIEN) 10 mg Indications: Chronic insomnia Take 1 tablet by mouth at bedtime as needed for up to 90 days. For Insomnia 30 tablet 2 08/02/2022 10/31/2022 Discontinued Start: 06-06-2022 End: 08-03-2022 take 1 tablet by mouth once daily at bedtime as needed zolpidem (AMBIEN) 10 mg Indications: Chronic insomnia TAKE 1 TABLET BY MOUTH EVERY DAY AT BEDTIME NEEDED FOR INSOMNIA 30 tablet 0 07/04/2022 08/03/2022 Active Start: 04-04-2022 End: 06-04-2022 take 1 tablet by mouth once daily at bedtime as needed zolpidem (AMBIEN) 10 mg Indications: Chronic insomnia TAKE 1 TABLET BY MOUTH EVERY DAY AT BEDTIME NEEDED FOR INSOMNIA 30 tablet 0 05/05/2022 05/30/2022 Discontinued (Discontinued by Patient) Start: 02-28-2022 End: 03-30-2022 take 1 tablet by mouth every 30 days at bedtime as needed zolpidem (AMBIEN) 10 mg Indications: Chronic insomnia Take 1 tablet by mouth at bedtime as needed for up to 30 days. For Insomnia 30 tablet 0 02/28/2022 03/30/2022 Active Start: 02-03-2022 End: 03-05-2022 take 1 tablet by mouth once daily at bedtime as needed zolpidem (AMBIEN) 10 mg Indications: Chronic insomnia TAKE 1 TABLET BY MOUTH EVERY DAY AT BEDTIME NEEDED FOR INSOMNIA 30 tablet 0 02/03/2022 02/28/2022 Discontinued Start: 09-22-2021 End: 02-04-2022 take 1 tablet by mouth every 30 days at bedtime as needed zolpidem (AMBIEN) 10 mg Indications: Chronic insomnia Take 1 tablet by mouth at bedtime as needed for up to 30 days. for insomnia. 30 tablet 0 01/05/2022 02/03/2022 Discontinued Comment on above: Take 1 tablet by lindsey th at bedtime as needed for up to 30 days. for insomnia. TAKE 1 TABLET BY LINDSEY TH EVERY DAY AT BEDTIME NEEDED FOR INSOMNIA Take 1 tablet by lindsey th at bedtime as needed for up to 30 days. For Insomnia Take 1 tablet by lindsey th at bedtime as needed for up to 90 days. For Insomnia Problems Active Problems Problem Classification Problem Date Documented Da te Episodic/Chronic Acute and unspecified renal failure (4 sources) Injury of kidney; Translations: [Acute kidney failure, unspecified] 04-01-2023 Episodic Allergic reactions (1 source) Inflammatory dermatosis; Translations: [Dermatitis, unspecified] 04-18-2023 Episodic Anxiety disorders (20 sources) Generalized anxiety disorder; Translations: [Generalized anxiety disorder] Onset: 06-22-2020 Chronic Biliary tract disease (1 source) Obstruction of bile duct; Translations: [Obstruction of bile duct] Onset: 5 Chronic Cardiac dysrhythmias (4 sources) Palpitations; Translations: [Palpitations] Onset: 5 03-15-2025 Episodic Complications of surgical procedures or medical care (1 source) Complication of procedure; Translations: [Complication of surgical and medical care, unspecified, initial encounter] Episodic Conditions associated with dizziness or vertigo (4 sources) Vertigo; Translations: [Dizziness and giddiness] Onset: 5 03-15-2025 Episodic Deficiency and other anemia (4 sources) Iron deficiency anemia; Translations: [Iron deficiency anemia, unspecified] 01-13-2024 Episodic Diabetes mellitus without complication (20 sources) Diabetes mellitus; Translations: [Type 2 diabetes mellitus without complications] 08-18-2020 Chronic Diseases of white blood cells (1 source) Elevated white blood cell count, unspecified; Translations: [Elevated white blood cell count, unspecified] Onset: 5 Chronic Esophageal disorders (20 sources) Gastroesophageal reflux disease without esophagitis; Translations: [Gastro-esophageal reflux disease without esophagitis] Onset: 0 Resolved: 2 06-22-2020 Chronic Essential hypertension (8 sources) Hypertensive disorder; Translations: [Essential (primary) hypertension] Onset: 5 12-11-2022 Chronic Fluid and electrolyte disorders (4 sources) Lactic acidosis; Translations: [Acute lactic acidosis] 04-01-2023 Episodic Malaise and fatigue (10 sources) Asthenia; Translations: [Weakness] Onset: 5 Episodic Miscellaneous mental health disorders (20 sources) Chronic insomnia; Translations: [Psychophysiologic insomnia] Onset: 0 06-22-2020 Chronic Mood disorders (20 sources) Recurrent major depressive episodes, mild ; Translations: [Major depressive disorder, recurrent, mild] Onset: 0 06-22-2020 Chronic Mood disorders (1 source) Mood disorders; Translations: [Anxiety and depression] Onset: 0 Nutritional deficiencies (20 sources) Deficiency of macronutrients; Translations: [Unspecified severe protein-calorie malnutrition] Onset: 3 04-02-2023 Chronic Nutritional deficiencies (2 sources) Cobalamin deficiency; Translations: [Deficiency of other specified B group vitamins] Onset: 5 02-26-2025 Episodic Other aftercare (7 sources) Long-term current use of anticoagulant; Translations: [long term care administrator (current) use of anticoagulants] 12-11-2022 Episodic Other circulatory disease (2 sources) Elevated blood-pressure reading without diagnosis of hypertension; Translations: [Elevated blood-pressure reading, without diagnosis of hypertension] 09-21-2024 Episodic Other connective tissue disease (2 sources) Muscle pain; Translations: [Myalgia, unspecified site] Episodic Other ear and sense organ disorders (1 source) Acute otitis externa of left ear; Translations: [Unspecified acute noninfective otitis externa, left ear] 07-12-2024 Episodic Other gastrointestinal disorders (20 sources) Irritable bowel syndrome; Translations: [Mixed irritable bowel syndrome] Onset: 0 06-22-2020 Chronic Other gastrointestinal disorders (1 source) Mixed irritable bowel syndrome; Translations: [Irritable bowel syndrome with both constipation and diarrhea] Onset: 0 Chronic Other gastrointestinal disorders (4 sources) Personal history of other diseases of the digestive system; Translations: [Personal history of other diseases of digestive system] Episodic Other gastrointestinal disorders (5 sources) Constipation; Translations: [Constipation, unspecified] 03-16-2023 Episodic Other gastrointestinal disorders (2 sources) Constipation, unspecified; Translations: [Constipation, unspecified] 03-18-2023 Episodic Other gastrointestinal disorders (2 sources) Diarrhea; Translations: [Diarrhea, unspecified] 12-06-2023 Episodic Other lower respiratory disease (3 sources) Dyspnea; Translations: [Shortness of breath] 07-24-2023 Episodic Other lower respiratory disease (4 sources) Dyspnea on exertion; Translations: [Other forms of dyspnea] 07-24-2023 Episodic Other lower respiratory disease (2 sources) Other forms of dyspnea; Translations: [CHAVARRIA (dyspnea on exertion)] Onset: 5 Episodic Other nervous system disorders (20 sources) Parkinsonism due to drug; 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 Other nervous system disorders (1 source) Other drug induced secondary parkinsonism; 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 Other screening for suspected conditions (not mental disorders or infectious disease) (3 sources) Other specified abnormal findings of blood chemistry; Translations: [Other abnormal blood chemistry] Episodic Otitis media and related conditions (1 source) Acute left otitis media; Translations: [Otitis media, unspecified, left ear] 07-12-2024 Episodic Peritonitis and intestinal abscess (1 source) Abscess of peritoneum; Translations: [Peritoneal abscess] Episodic Phlebitis; thrombophlebitis and thromboembolism (1 source) Chronic deep venous thrombosis of thigh; Translations: [Chronic embolism and thrombosis of unspecified deep veins of unspecified proximal lower extremity] 09-09-2024 Chronic Residual codes; unclassified (2 sources) Feeding problem; Translations: [Other specified health status] Episodic Residual codes; unclassified (2 sources) Postoperative state; Translations: [Other specified postprocedural states] Episodic Residual codes; unclassified (1 source) Illness, unspecified; Translations: [Illness, unspecified] Onset: 4 Episodic Syncope (1 source) Syncope; Translations: [Syncope and collapse] Episodic Thyroid disorders (20 sources) Subclinical hypothyroidism; Translations: [Other specified hypothyroidism] Onset: 0 06-22-2020 Chronic Unclassified (1 source) F/U 4 months Onset: 5 Urinary tract infections (2 sources) Recurrent urinary tract infection; Translations: [Urinary tract infection, site not specified] Episodic Past or Other Problems Problem Classification Problem Date Documented Da te Episodic/Chronic Abdominal pain (20 sources) Abdominal pain; Translations: [Unspecified abdominal pain] Onset: 05-03-2022 Episodic Deficiency and other anemia (2 sources) Iron deficiency anemia, unspecified; Translations: [Iron deficiency anemia, unspecified iron deficiency anemia type] Onset: 06-11-2024 Episodic Diabetes mellitus without complication (20 sources) Prediabetes; Translations: [Prediabetes] Onset: 06-22-2020 06-22-2020 Episodic Intestinal obstruction without hernia (20 sources) Small bowel obstruction; Translations: [Unspecified intestinal obstruction, unspecified as to partial versus complete obstruction] Onset: 03-18-2023 Resolved: 04-05-2023 Episodic Nausea and vomiting (19 sources) Nausea and vomiting; Translations: [Nausea with vomiting, unspecified] Onset: 06-11-2024 Episodic Parkinson`s disease (20 sources) Parkinson's disease; Translations: [Parkinson's disease] Onset: 06-22-2020 Resolved: 04-17-2022 06-22-2020 Chronic Phlebitis; thrombophlebitis and thromboembolism (20 sources) H/O: Deep vein thrombosis; Translations: [Personal history of other venous thrombosis and embolism] Onset: 06-22-2020 06-22-2020 Episodic Results Test Name Value Interpretation Reference Range Facility [facility] 03-31-2025 [facility] Telephone ([facility]) KAITLYN ESCOBAR I ([id number]) 1950 F Date Time Provider Department 03/31/25 KENTRELL DHALIWAL II [facility] During your visit today, we recorded the following information about you: Husam Grant MA 03/31/2025 9:22 AM Signed Patient called in regards US on her carotids. Patient is wondering what her results are? Please advise LISA Junior Sabrina, MA 03/31/2025 10:36 AM Signed US showed <50 % stenosis to bilateral carotid arteries. Will continue to monitor this. Will repeat in 1 year. - Magdalene Salas Called patient and informed of magdalene message. Patient stated ok and thank you. Husam Grant MA Allergies As of Date: 03/31/2025 Noted Allergy Reaction LATEX 06/22/2020 10 - Anaphylaxis ABILIFY (ARIPIPRAZOLE) 04/19/2022 14 - Other: See Comments Comments: Muscles couldn't get up CODEINE 06/22/2020 6 - Diarrhea COMPAZINE (PROCHLORPERAZINE) 06/22/2020 17 - Myalgia LEVAQUIN (LEVOFLOXACIN) 06/22/2020 6 - Diarrhea OMNICEF (CEFDINIR) 06/22/2020 6 - Diarrhea PREDNISONE 08/30/2021 8 - GI Upset PROPOXYPHENE 06/23/2015 16 - Unknown [id number]-EAT-SGC REDUCTASE INHIBIT*06/22/2020 6 - Diarrhea 5 - Intolerance SULFA (SULFONAMIDE ANTIBIOTICS) 06/15/2020 14 - Other: See Comments Comments: Leg pain SHELLFISH CONTAINING PRODUCTS 11/29/2012 7 - Swelling Date Reviewed: 03/15/2025 Reviewed by: Kentrell Dhaliwal II, MD - Fully Assessed Prescriptions as of 03/31/2025 - ALPRAZolam (XANAX) 1 mg tablet Take 1 tablet by mouth every 12 hours as needed for up to 30 days. - zolpidem (AMBIEN) 10 mg Take 1 tablet by mouth at bedtime as needed for up to 90 days. - albuterol HFA (PROVENTIL HFA, VENTOLIN HFA) 90 mcg/actuation inhaler Inhale 2 puffs as instructed every 6 hours as needed for wheezing/shortness of breath. - busPIRone (BUSPAR) 15 mg tablet Take 1 tablet by mouth two times a day. - nabumetone (RELAFEN) 750 mg tablet Take 1 tablet by mouth every 12 hours as needed for pain. - furosemide (LASIX) 40 mg tablet Take 1 tablet by mouth once daily. - levothyroxine (SYNTHROID) 50 mcg tablet Take 1 tablet by mouth once daily. - ezetimibe (ZETIA) 10 mg tablet Take 1 tablet by mouth once daily. - rOPINIRole (REQUIP) 0.5 mg tablet Take 1 tablet by mouth two times a day. - promethazine (PHENERGAN) 25 mg tablet Take 1 tablet by mouth every 6 hours as needed. - clotrimazole-betametha sone (LOTRISONE) cream Apply to affected area two times a day. - omeprazole (PRILOSEC) 40 mg capsule Take 1 capsule by mouth two times a day. - polyethylene glycol 3350 17 gram packet Take 17 g by mouth two times a day. Dissolve dose in 4 - 8 ounces of liquid and take as directed. - warfarin (COUMADIN) 5 mg tablet Take 1 tablet by mouth once daily. - citalopram (CELEXA) 20 mg tablet Take 1 tablet by mouth once daily. - simethicone 250 mg cap Take 1 capsule by mouth three times a day. - hyoscyamine SR (LEVBID) 0.375 mg 12 hr tablet Take 1 tablet by mouth two times a day. - ondansetron (ZOFRAN) 4 mg tablet Take 1 tablet by mouth every 6 hours as needed. - cyclobenzaprine (FLEXERIL) 10 mg tablet Take 1 tablet by mouth three times daily as needed. - docusate sodium (COLACE) 100 mg capsule Take 1 capsule by mouth twice daily. 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] Diabetes (HCC) [E11.9] Anxiety and depression [F41.9, F32.A] Hypothyroidism, acquired [E03.9] 08/30/2021 Small bowel obstruction (HCC) [K56.609] 03/18/2023 03/20/2023 Severe protein-calorie malnutrition (HCC) [E43] 03/19/2023 SBO (small bowel obstruction) (HCC) [K56.609] 04/01/2023 04/05/2023 Encounter Status:Closed by HUSAM GRANT on 03/31/25 [facility] Echocardiography Echocardiography Report: Transthoracic Echo [facility] Date of service: 03/30/2025 2:58:26 PM PROFESSIONAL Ordering physician: KENTRELL DHALIWAL II Exam indication: Shortness of Breath Technologist: Maia Gagnon [facility] Interpreting physician: Sylvie Burns MD PATIENT: Name: KAITLYN ESCOBAR : 1950 Age: 74 years Gender: F History of diabetes mellitus. Primary rhythm: sinus. Height: 154.90 cm BSA: 1.68 m Weight: 65.32 kg BMI: 27.2 kg/m Heart rate 69 bpm Blood pressure 144/72 mmHg Color Doppler was utilized to interrogate the cardiac valves assessed and spectral Doppler was utilized to determine the flow velocities and pressure gradients reported in this exam. Myocardial strain analysis was performed in this exam to aid in the assessment of cardiac function. MEASUREMENTS: Value Indexed Normal Max aortic dimension 2.9 cm Ao < 3.8 Left atrial volume 35 ml (biplane A-L) 21 ml/m Art <= 34 LV ID (diastole) 3.7 cm (2D) 2.21 cm/m LV ID (systole) 2.2 cm (2D) 1.32 cm/m IVS, leaflet tips 0.9 cm (2D) Posterior wall thickness 0.9 cm (2D) Left ventricular mass 93 g (2D) 55 g/m Global peak long strain -19.1 % LV stroke volume 40 ml (2D biplane) LV end diastolic volume 64 ml (2D biplane) 38.1 ml/m 29<=EDVi<62 LV end systolic volume 24 ml (2D biplane) 14.1 ml/m Ejection Fraction 63 % (2D biplane) EF > 54 FINDINGS: LEFT VENTRICLE The left ventricle is normal in size. Left ventricular systolic function is normal. Global LV myocardial strain is normal. Normal left ventricular diastolic function. Mitral annular lateral E/e': 7.5. Mitral annular septal E/e': 8.3. Wall Motion: All scored segments are normal. RIGHT VENTRICLE The right ventricle is normal in size. Right ventricular systolic function is normal. RV systolic tissue Doppler velocity is 12.0 cm/s. Tricuspid annular displacement is 1.7 cm. Estimated right ventricular systolic pressure is 30 mmHg consistent with normal pulmonary artery pressures. Estimated right atrial pressure is 3 mmHg based on IVC assessment. LEFT ATRIUM The left atrial cavity is normal in size. Pulmonary Veins: The pulmonary venous pattern showed normal systolic flow. RIGHT ATRIUM The right atrial cavity is normal in size. Inferior Vena Cava: The inferior vena cava appears normal measuring 1.1 cm. The vessel decreases greater than 50 percent with inspiration. MITRAL VALVE The mitral valve leaflets are structurally normal. There is mild (1+) mitral valve regurgitation. The pressure half time is 55 msec. The peak mitral E/A ratio is 1.35. The average mitral E/e' ratio is 7.9. The mitral flow deceleration time is 188 msec. TRICUSPID VALVE The tricuspid valve leaflets are structurally normal. There is mild (1+) tricuspid valve regurgitation. AORTIC VALVE The aortic valve cusps are structurally normal. There is no aortic valve stenosis. There is no aortic valve regurgitation. Tricuspid aortic valve. The peak gradient is 9 mmHg (peak velocity = 147.6 cm/s). PULMONIC VALVE The pulmonic valve cusps are structurally normal. There is no pulmonic valve stenosis. There is trace pulmonic valve regurgitation. AORTA The visualized aorta is normal in size. Measurements - Mid ascending aorta 2.9 cm. INTERATRIAL SEPTUM There is no evidence of intracardiac shunting as detected by Doppler. PERICARDIUM There is no pericardial effusion. There is an epicardial fat pad. CONCLUSIONS: - Exam indication: Shortness of Breath - The left ventricle is normal in size. Left ventricular systolic function is normal. EF = 63 5% (2D biplane). Normal left ventricular diastolic function. - The right ventricle is normal in size. Right ventricular systolic function is normal. - Mild (1+) mitral valve regurgitation. - Mild (1+) tricuspid valve regurgitation. - Exam was compared with the prior echocardiographic exam performed on 05/09/2022. There is no significant change. * * * Final * * * [employer] [facility] Image : [id number] csSISUID Normal [facility] CAROTID ARTERIES ELIANA [facility]AS LABon 03-30-2025 US CAROTID ARTERIES [facility] LAB Non-Invasive Vascular Laboratory [facility] Carotid Duplex Bilateral/Complete Date of service/time: 03/30/2025 2:38:58 PM Name: KAITLYN ESCOBAR Date of : 1950 Age: 74 years Gender: F Clinical Indication Dizziness. TECHNIQUE -------- A carotid duplex ultrasound examination was performed, including grayscale imaging and color Doppler and spectral Doppler examination of the below mentioned arteries. FINDINGS -------- RIGHT SIDE Common carotid artery: Origin: PSV: 140 cm/s. EDV: 23 cm/s. Proximal: PSV: 133 cm/s. EDV: 24 cm/s. Mid: PSV: 109 cm/s. EDV: 22 cm/s. Distal: PSV: 99 cm/s. EDV: 24 cm/s. Mild heterogeneous plaque at distal. Internal carotid artery: Origin: PSV: 91 cm/s. EDV: 20 cm/s. Proximal: PSV: 98 cm/s. EDV: 34 cm/s. Mid: PSV: 147 cm/s. EDV: 47 cm/s. Distal: PSV: 96 cm/s. EDV: 35 cm/s. Mild heterogeneous plaque at origin. ICA/CCA Ratio: 1.0 External carotid artery: Proximal: PSV: 103 cm/s. EDV: 13 cm/s. Subclavian artery: Proximal: PSV: 143 cm/s. EDV: 0 cm/s. Innominate artery: PSV: 159 cm/s. EDV: 0 cm/s. Vertebral artery: PSV: 83 cm/s. EDV: 20 cm/s. LEFT SIDE Common carotid artery: Proximal: PSV: 99 cm/s. EDV: 23 cm/s. Mid: PSV: 90 cm/s. EDV: 20 cm/s. Distal: PSV: 82 cm/s. EDV: 21 cm/s. Mild heterogeneous plaque from mid to distal. Internal carotid artery: Origin: PSV: 87 cm/s. EDV: 24 cm/s. Proximal: PSV: 85 cm/s. EDV: 27 cm/s. Mid: PSV: 142 cm/s. EDV: 50 cm/s. Distal: PSV: 154 cm/s. EDV: 44 cm/s. Mild heterogeneous plaque at proximal. ICA/CCA Ratio: 1.1 External carotid artery: Proximal: PSV: 132 cm/s. EDV: 20 cm/s. Subclavian artery: Proximal: PSV: 150 cm/s. EDV: 0 cm/s. Vertebral artery: PSV: 67 cm/s. EDV: 14 cm/s. IMPRESSION Please note: the new carotid interpretation criteria are used as recommended by [employer] [employer]. RIGHT SIDE Common carotid artery: Patent. Internal carotid artery: <50% stenosis consistent with mild carotid artery disease. External carotid artery: Patent. Vertebral artery: Patent and antegrade flow noted. Innominate artery: Patent. Subclavian artery: Patent. LEFT SIDE Common carotid artery: Plaque visualized without evidence of hemodynamically significant stenosis. Internal carotid artery: <50% stenosis consistent with mild carotid artery disease. External carotid artery: Patent. Vertebral artery: Patent and antegrade flow noted. Subclavian artery: Patent. Technologist: Ordering physician: KENTRELL DHALIWAL II Interpreting physician: Silviano Edmondson MD, RPVI Final CC [employer] [facility] Image : [id number] csSISUID See Link below for Image Normal [facility] 03-05-2025 [facility] KAITLYN ESCOBAR I ([id number]) 1950 F Date Time Provider Department 03/05/25 1:00 PM KENTRELL DHALIWAL II [facility] During your visit today, we recorded the following information about you: Temperature Pulse Respiration Blood pressure 97.5 degrees 72/minute 14/minute 122/70 Weight Height 65.3 kg 1.549 m Kentrell Dhaliwal II, MD 03/15/2025 10:37 PM Signed Kentrell Dhaliwal II, [place] [address] NOEMI Escobar is a 74 year old female who presents with Palpitations (Patient stated that her first spell was back in January. Patient stated she starts to sweat and gets faint. Patient stated she was on vacation and it occurred again but worse. Patient stated that the third time it occurred she was doing laundry. ), Weakness (Patient stated in the last 6 weeks she as gotten weaker and having trouble keeping up with doing her normal routine ), Fatigue, Shortness of Breath, and Refill Request (Xanax /Both inhalers ). HPI Patient is in today to follow-up chronic problems discussed a few different issues. She states that she has had some general malaise over the last 1 to 2 months and she has noticed that she has had occasional palpitations. She has had a couple episodes where she starts to get sweaty and feels faint like she might pass out. She has not passed out with an episode but feels that way and it lasts a few minutes until it passes and she returns to normal. She states overall she feels like her exercise tolerance has gotten a little less and she is in general been more fatigued and is tending to get short of breath easier. She is not having chest discomfort which she is having palpitations Review of Systems Constitutional: Negative for activity change, appetite change, chills, diaphoresis, fatigue, fever and unexpected weight change. HENT: Negative for congestion, dental problem, ear pain, hearing loss, nosebleeds, postnasal drip, rhinorrhea, sinus pressure, sinus pain, sore throat, trouble swallowing and voice change. Eyes: Negative for discharge, redness and visual disturbance. Respiratory: Negative for apnea, cough, choking, chest tightness, shortness of breath, wheezing and stridor. Cardiovascular: Negative for chest pain, palpitations and leg swelling. Gastrointestinal: Negative for abdominal distention, abdominal pain, blood in stool, constipation, diarrhea, nausea and vomiting. Endocrine: Negative for cold intolerance, heat intolerance, polydipsia, polyphagia and polyuria. Genitourinary: Negative for decreased urine volume, difficulty urinating, dysuria, enuresis, frequency, hematuria and urgency. Musculoskeletal: Negative for arthralgias, gait problem and myalgias. Skin: Negative for color change, pallor, rash and wound. Allergic/Immunologic: Negative for environmental allergies. Neurological: Negative for dizziness, tremors, syncope, facial asymmetry, speech difficulty, weakness, light-headedness, numbness and headaches. Hematological: Negative for adenopathy. Does not bruise/bleed easily. Psychiatric/Behavioral : Negative for agitation, behavioral problems, confusion, decreased concentration, dysphoric mood, hallucinations, self-injury, sleep disturbance and suicidal ideas. The patient is not nervous/anxious and is not hyperactive. PAST MEDICAL HISTORY Diagnosis Date - Anxiety and depression - Diabetes (HCC) - Drug-induced Parkinson's disease (HCC) - GERD (gastroesophageal reflux disease) - History of DVT (deep vein thrombosis) - IBS (irritable bowel syndrome) - Seizures (HCC) - Small bowel obstruction (HCC) - Tremor PAST SURGICAL HISTORY Procedure Laterality Date - CHOLECYSTECTOMY HX - COLON SURGERY HX - HYSTERECTOMY HX - ROTATOR CUFF REPAIR Left - TONSILLECTOMY HX - TOOTH EXTRACTION Bilateral 2023 multiple teeth extracted - WRIST SURGERY HX Right Social History Tobacco Use - Smoking status: Never - Smokeless tobacco: Never Vaping Use - Vaping status: Never Used Substance Use Topics - Alcohol use: Not Currently - Drug use: Never FAMILY HISTORY Problem Relation Age of Onset - Emphysema Mother - Heart disease Father The ROS, medical, surgical, family, and social history were reviewed by Kentrell Dhaliwal II, MD ALLERGIES Allergen Reactions - Latex Anaphylaxis - Abilify [Aripiprazo* Other: See Comments Muscles couldn't get up - Codeine Diarrhea - Compazine [Prochlor* Myalgia - Levaquin [Levofloxa* Diarrhea - Omnicef [Cefdinir] Diarrhea - Prednisone GI Upset - Propoxyphene Unknown - Wdsozdk-Nov-Ymz Red* Diarrhea, Intolerance - Sulfa (Sulfonamide * Other: See Comments Leg pain - Shellfish Containin* Swelling Current Outpatient Medications Medication Sig - busPIRone (BUSPAR) 15 mg tablet Take 1 tablet by mouth two times a day. - jess (more content not included)... [facility] Nurse Triage ([facility] ) KAITLYN ESCOBAR I ([id number]) 1950 F Date Time Provider Department 03/02/25 KENTRELL DHALIWAL II [facility] During your visit today, we recorded the following information about you: Jasmin Garza 03/02/2025 9:02 AM Signed Patient calls the office today and states that she has had three episodes of her heart racing and breaks out in a sweat and gets dizzy. She sits down and it goes away. The second time she was doing nothing and it happened. The third time was last week. Please advise Thank you [phone] Sent to our [facility] nurse pool Pearl Platt RN 03/02/2025 9:20 AM Signed Reason for Disposition - Taking water pill (i.e., diuretic) or heart medication (e.g., digoxin) Taking Lasix Answer Assessment - Initial Assessment Questions 1. DESCRIPTION: Please describe your heart rate or heartbeat that you are having (e.g., fast/slow, regular/irregular, skipped or extra beats, palpitations) Palpitations 2. ONSET: When did it start? (e.g., minutes, hours, days) A month ago 3. DURATION: How long does it last (e.g., seconds, minutes, hours) 15 minutes 4. PATTERN Does it come and go, or has it been constant since it started? Does it get worse with exertion? Are you feeling it now? Comes and goes. 3 episodes total 5. TAP: Using your hand, can you tap out what you are feeling on a chair or table in front of you, so that I can hear? Note: Not all patients can do this. N/A 6. HEART RATE: Can you tell me your heart rate? How many beats in 15 seconds? Note: Not all patients can do this. Unsure of current HR. Not currently experiencing it. 7. RECURRENT SYMPTOM: Have you ever had this before? If Yes, ask: When was the last time? and What happened that time? Last episode occurred a week ago. Has not happened piror to this last month. 8. CAUSE: What do you think is causing the palpitations? Unsure 9. CARDIAC HISTORY: Do you have any history of heart disease? (e.g., heart attack, angina, bypass surgery, angioplasty, arrhythmia) No 10. OTHER SYMPTOMS: Do you have any other symptoms? (e.g., dizziness, chest pain, sweating, difficulty breathing) When episodes occur she does have sweating, weakness, and dizziness. Currently no symptoms 11. : Is there any chance you are ? When was your last menstrual period? No Protocols used: Heart Rate and Heartbeat [id number] Allergies As of Date: 03/02/2025 Noted Allergy Reaction LATEX 06/22/2020 10 - Anaphylaxis ABILIFY (ARIPIPRAZOLE) 04/19/2022 14 - Other: See Comments Comments: Muscles couldn't get up CODEINE 06/22/2020 6 - Diarrhea COMPAZINE (PROCHLORPERAZINE) 06/22/2020 17 - Myalgia LEVAQUIN (LEVOFLOXACIN) 06/22/2020 6 - Diarrhea OMNICEF (CEFDINIR) 06/22/2020 6 - Diarrhea PREDNISONE 08/30/2021 8 - GI Upset PROPOXYPHENE 06/23/2015 16 - Unknown [id number] REDUCTASE INHIBIT*06/22/2020 6 - Diarrhea 5 - Intolerance SULFA (SULFONAMIDE ANTIBIOTICS) 06/15/2020 14 - Other: See Comments Comments: Leg pain SHELLFISH CONTAINING PRODUCTS 11/29/2012 7 - Swelling Date Reviewed: 01/08/2025 Reviewed by: Kentrell Dhaliwal II, MD - Fully Assessed Reason for Visit: palpiptations [Other] Prescriptions as of 03/02/2025 - nabumetone (RELAFEN) 750 mg tablet Take 1 tablet by mouth every 12 hours as needed for pain. - furosemide (LASIX) 40 mg tablet Take 1 tablet by mouth once daily. - busPIRone (BUSPAR) 15 mg tablet Take 0.5 tablets by mouth two times a day. - zolpidem (AMBIEN) 10 mg Take 1 tablet by mouth at bedtime as needed for up to 90 days. - levothyroxine (SYNTHROID) 50 mcg tablet Take 1 tablet by mouth once daily. - ezetimibe (ZETIA) 10 mg tablet Take 1 tablet by mouth once daily. - rOPINIRole (REQUIP) 0.5 mg tablet Take 1 tablet by mouth two times a day. - promethazine (PHENERGAN) 25 mg tablet Take 1 tablet by mouth every 6 hours as needed. - clotrimazole-betametha sone (LOTRISONE) cream Apply to affected area two times a day. - omeprazole (PRILOSEC) 40 mg capsule Take 1 capsule by mouth two times a day. - polyethylene glycol 3350 17 gram packet Take 17 g by mouth two times a day. Dissolve dose in 4 - 8 ounces of liquid and take as directed. - warfarin (COUMADIN) 5 mg tablet Take 1 tablet by mouth once daily. - citalopram (CELEXA) 20 mg tablet Take 1 tablet by mouth once daily. - albuterol HFA (PROVENTIL HFA, VENTOLIN HFA) 90 mcg/actuation inhaler Inhale 2 Puffs as instructed every 6 hours as needed for wheezing/shortness of breath. - simethicone 250 mg cap Take 1 capsule by mouth three times a day. - hyoscyamine SR (LEVBID) 0.375 mg 12 hr tablet Take 1 tablet by mouth two times a day. - ondansetron (ZOFRAN) 4 mg tablet Take 1 tablet by mouth every 6 hours as needed. - cyclobenzaprine (FLEXERIL) 10 mg tablet Take 1 tablet by (more content not included)... [facility] KAITLYN ESCOBAR I ([id number]) 1950 F Date Time Provider Department 03/02/25 KENTRELL DHALIWAL II [facility] During your visit today, we recorded the following information about you: Jasmin Garza 03/02/2025 8:57 AM Signed Patient calls today. Reason for Call: results Patient calls the office and asks that we call her back regarding her test results. Also, she discussed with Dr Dhaliwal about upping her buspar. At the time, she wasn't interested in doing so, but now she would like it increased to [address] Dhaliwal to do so. She also needs a refill on her xanax. Please advise Thank you [phone] (home) [phone] (cell) Patient last appointment: 09/26/2024 [address] II, MD 03/06/2025 5:06 PM Signed Addressed at her appointment Allergies As of Date: 03/02/2025 Noted Allergy Reaction LATEX 06/22/2020 10 - Anaphylaxis ABILIFY (ARIPIPRAZOLE) 04/19/2022 14 - Other: See Comments Comments: Muscles couldn't get up CODEINE 06/22/2020 6 - Diarrhea COMPAZINE (PROCHLORPERAZINE) 06/22/2020 17 - Myalgia LEVAQUIN (LEVOFLOXACIN) 06/22/2020 6 - Diarrhea OMNICEF (CEFDINIR) 06/22/2020 6 - Diarrhea PREDNISONE 08/30/2021 8 - GI Upset PROPOXYPHENE 06/23/2015 16 - Unknown [id number] REDUCTASE INHIBIT*06/22/2020 6 - Diarrhea 5 - Intolerance SULFA (SULFONAMIDE ANTIBIOTICS) 06/15/2020 14 - Other: See Comments Comments: Leg pain SHELLFISH CONTAINING PRODUCTS 11/29/2012 7 - Swelling Date Reviewed: 01/08/2025 Reviewed by: Kentrell Dhaliwal II, MD - Fully Assessed Reason for Visit: Results [95] Prescriptions as of 03/06/2025 - albuterol HFA (PROVENTIL HFA, VENTOLIN HFA) 90 mcg/actuation inhaler Inhale 2 puffs as instructed every 6 hours as needed for wheezing/shortness of breath. - ALPRAZolam (XANAX) 1 mg tablet Take 1 tablet by mouth every 12 hours as needed for up to 30 days. - busPIRone (BUSPAR) 15 mg tablet Take 1 tablet by mouth two times a day. - nabumetone (RELAFEN) 750 mg tablet Take 1 tablet by mouth every 12 hours as needed for pain. - furosemide (LASIX) 40 mg tablet Take 1 tablet by mouth once daily. - zolpidem (AMBIEN) 10 mg Take 1 tablet by mouth at bedtime as needed for up to 90 days. - levothyroxine (SYNTHROID) 50 mcg tablet Take 1 tablet by mouth once daily. - ezetimibe (ZETIA) 10 mg tablet Take 1 tablet by mouth once daily. - rOPINIRole (REQUIP) 0.5 mg tablet Take 1 tablet by mouth two times a day. - promethazine (PHENERGAN) 25 mg tablet Take 1 tablet by mouth every 6 hours as needed. - clotrimazole-betametha sone (LOTRISONE) cream Apply to affected area two times a day. - omeprazole (PRILOSEC) 40 mg capsule Take 1 capsule by mouth two times a day. - polyethylene glycol 3350 17 gram packet Take 17 g by mouth two times a day. Dissolve dose in 4 - 8 ounces of liquid and take as directed. - warfarin (COUMADIN) 5 mg tablet Take 1 tablet by mouth once daily. - citalopram (CELEXA) 20 mg tablet Take 1 tablet by mouth once daily. - simethicone 250 mg cap Take 1 capsule by mouth three times a day. - hyoscyamine SR (LEVBID) 0.375 mg 12 hr tablet Take 1 tablet by mouth two times a day. - ondansetron (ZOFRAN) 4 mg tablet Take 1 tablet by mouth every 6 hours as needed. - cyclobenzaprine (FLEXERIL) 10 mg tablet Take 1 tablet by mouth three times daily as needed. - docusate sodium (COLACE) 100 mg capsule Take 1 capsule by mouth twice daily. 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] Diabetes (HCC) [E11.9] Anxiety and depression [F41.9, F32.A] Hypothyroidism, acquired [E03.9] 08/30/2021 Small bowel obstruction (HCC) [K56.609] 03/18/2023 03/20/2023 Severe protein-calorie malnutrition (HCC) [E43] 03/19/2023 SBO (small bowel obstruction) (HCC) [K56.609] 04/01/2023 04/05/2023 Encounter Status:Closed by ROSIBEL RODRIGUEZ on [facility](OH)D3 [facility] 2024 25-hydroxyvitamin D3 [Mass/Vol] 31.0 ng/mL Normal 31.0-80.0 [facility] Comment on above: Order Comment: Speci men Type: BLOOD SPECIMEN [facility] Address: [address] [place] [address] Result Comment: Clas sification of 25 [place] Vitamin D status: Deficiency/Insufficiency: < or = 30 ng/ml. Sufficiency/Optimal Levels: 31-80 ng/mL Toxicity: > 100 ng/mL. Test performed by chemiluminescent immunoassay. Performed By: #### 1 989-3 #### [facility] CLIA [id number] [address] [place] [address] [place] Basic metabolic 2000 panelOr dered By: Radha Silva on 02-26-2025 Anion gap [Moles/Vol] 14 mmol/L 8 - 15 mmol/L [facility] Calcium [Mass/Vol] 9.3 mg/dL 8.5 - 10. 2 mg/dL [facility] Chloride [Moles/Vol] 103 mmol/L 98 - 10 7 mmol/L [facility] CO2 [Moles/Vol] 20 mmol/L Low 22 - 30 mmol/L [facility] Creatinine [Mass/Vol] 1.19 mg/dL High 0.58 - 0.96 mg/dL [facility] GFR/1.73 sq M.predicted among non-blacks MDRD (S/P/Bld) [Vol rate/Area] 48 mL/min/{1.73_m2} Low - PINF [facility] Comment on above: Estimated Glomerular Filtration Rate (eGFR) is calculated using the 2020 CKD-EPI creatinine equation. This equation utilizes serum creatinine, sex, and age as parameters. The creatinine assay has traceable calibration to isotope dilution-mass spectrometry. Refer to KDIGO guidelines for clinical interpretation. In patients with unstable renal function, e.g. those with acute kidney injury, the eGFR may not accurately reflect actual GFR. Glucose [Mass/Vol] 100 mg/dL High 74 - 99 mg/dL [facility] Comment on above: The [place] Diabete s Association (ADA) provides guidance for cutoff values for fasting glucose and random glucose. The ADA defines fasting as no caloric intake for at least 8 hours. Fasting plasma glucose results between 100 to 125 mg/dL indicate increased risk for diabetes (prediabetes). Fasting plasma glucose results greater than or equal to 126 mg/dL meet the criteria for diagnosis of diabetes. In the absence of unequivocal hyperglycemia, results should be confirmed by repeat testing. In a patient with classic symptoms of hyperglycemia or hyperglycemic crisis, random plasma glucose results greater than or equal to 200 mg/dL meet the criteria for diagnosis of diabetes. Reference: Standards of Medical Care in Diabetes 2016, [place] Diabetes Association. Diabetes Care. 2016.39(Suppl 1). Interpretation and review of laboratory results Abnormal [facility] Potassium [Moles/Vol] 4.3 mmol/L 3.7 - 5.1 mmol/L [facility] Sodium [Moles/Vol] 137 mmol/L 136 - 144 mmol/L [facility] Urea nitrogen [Mass/Vol] 19 mg/dL 7 - 21 mg/dL [facility] Basic metabolic 2000 panelon 02-26-2025 Anion gap [Moles/Vol] 14 mmol/L Normal 8-15 [facility] Comment on above: Order Comment: Sam talley Type: BLOOD SPECIMEN [facility] Address: [address] [place] [address] Performed By: #### 2 4321-2 #### [facility] [id number] [address] [place] [address] [place] Calcium [Mass/Vol] 9.3 mg/dL Normal 8.5-10.2 [facility] Comment on above: Order Comment: Sam talley Type: BLOOD SPECIMEN [facility] Address: [address] [address] Performed By: #### 2 4321-2 #### [facility] CLIA [id number] [address] [place] [address] [place] Chloride [Moles/Vol] 103 mmol/L Normal 98-107 [facility] Comment on above: Order Comment: Speci men Type: BLOOD SPECIMEN [facility] Address: [address] [place] [address] Performed By: #### 2 4321-2 #### [facility] CLIA [id number] [address] [place] [address] [place] CO2 [Moles/Vol] 20 mmol/L Low 22-30 [facility] Comment on above: Order Comment: Speci men Type: BLOOD SPECIMEN [facility] Address: [address] [place] [address] Performed By: #### 2 4321-2 #### [facility] [id number] [address] [place] [address] [place] Creatinine [Mass/Vol] 1.19 mg/dL High 0.58-0.96 [facility] Comment on above: Order Comment: Speci men Type: BLOOD SPECIMEN [facility] Address: [address] [place] [address] Performed By: #### 2 4321-2 #### [facility] [id number] [address] [place] [address] [place] Creatinine and Glomerular filtration rate.predicted panel (S/P/Bld) 48 mL/min/1.73m??? Low >=60 [facility] Comment on above: Order Comment: Speci men Type: BLOOD SPECIMEN [facility] Address: [address] [place] [address] Result Comment: [place] mated Glomerular Filtration Rate (eGFR) is calculated using the 2020 CKD-EPI creatinine equation. This equation utilizes serum creatinine, sex, and age as parameters. The creatinine assay has traceable calibration to isotope dilution-mass spectrometry. Refer to KDIGO guidelines for clinical interpretation. In patients with unstable renal function, e.g. those with acute kidney injury, the eGFR may not accurately reflect actual GFR. Performed By: #### 2 4321-2 #### [facility] [id number] [address] [place] [address] [place] Glucose [Mass/Vol] 100 mg/dL High 74-99 [facility] Comment on above: Order Comment: Sam talley Type: BLOOD SPECIMEN [facility] Address: [address] [address] Result Comment: The [place] Diabetes Association (ADA) provides guidance for cutoff values for fasting glucose and random glucose. The ADA defines fasting as no caloric intake for at least 8 hours. Fasting plasma glucose results between 100 to 125 mg/dL indicate increased risk for diabetes (prediabetes). Fasting plasma glucose results greater than or equal to 126 mg/dL meet the criteria for diagnosis of diabetes. In the absence of unequivocal hyperglycemia, results should be confirmed by repeat testing. In a patient with classic symptoms of hyperglycemia or hyperglycemic crisis, random plasma glucose results greater than or equal to 200 mg/dL meet the criteria for diagnosis of diabetes. Reference: Standards of Medical Care in Diabetes 2016, [place] Diabetes Association. Diabetes Care. 2016.39(Suppl 1). Performed By: #### 2 4321-2 #### [facility] [id number] [address] [place] [address] [place] Potassium [Moles/Vol] 4.3 mmol/L Normal 3.7-5.1 [facility] Comment on above: Order Comment: Sam talley Type: BLOOD SPECIMEN [facility] Address: [address] [place] [address] Performed By: #### 2 4321-2 #### [facility] [id number] [address] [place] [address] [place] Sodium [Moles/Vol] 137 mmol/L Normal 136-144 [facility] Comment on above: Order Comment: Speci men Type: BLOOD SPECIMEN [facility] Address: [address] [facility] [place] [id number] Performed By: #### 2 4321-2 #### [facility] CLIA [id number] [address] [place] [address] Urea nitrogen [Mass/Vol] 19 mg/dL Normal 7-21 [facility] Comment on above: Order Comment: Speci men Type: BLOOD SPECIMEN [facility] Address: [address] [id number] Performed By: #### 2 4321-2 #### [facility] CLIA [id number] [address] [place] [address] OF [facility] CBC panel Auto (Bld)on 02-26 Erythrocyte distribution width (RBC) [Ratio] 14 % 11.5 - 15.0 % [facility] Hematocrit (Bld) [Volume fraction] 36.9 % 36.0 - 46.0 % [facility] Hemoglobin (Bld) [Mass/Vol] 12.4 g/dL 11.5 - 15.5 g/dL [facility] Interpretation and review of laboratory results Normal [facility] MCH (RBC) [Entitic mass] 29.5 pg 26.0 - 34.0 pg [facility] MCHC (RBC) [Mass/Vol] 33.6 g/dL 30.5 - 36.0 g/dL [facility] MCV (RBC) [Entitic vol] 87.6 fL 80.0 - 100.0 fL [facility] Nucleated RBC (Bld) [#/Vol] NINF [facility] Platelet mean volume (Bld) [Entitic vol] 10.5 fL 9.0 - 12.7 fL [facility] Platelets (Bld) [#/Vol] 193 10*3/uL [facility] RBC (Bld) [#/Vol] 4.21 10*6/uL 3.90 - 5.2 0 m/uL [facility] WBC (Bld) [#/Vol] 6.89 10*3/uL [facility] Erythrocyte distribution width (RBC) [Ratio] 14.0 % Normal 11.5-15.0 [facility] Comment on above: Order Comment: Speci men Type: BLOOD SPECIMEN [facility] Address: [address] [place] [address] Performed By: #### 5 8410-2 #### [facility] CLIA [id number] [address] [place] [address] [place] Hematocrit (Bld) [Volume fraction] 36.9 % Normal 36.0-46.0 [facility] Comment on above: Order Comment: Speci men Type: BLOOD SPECIMEN [facility] Address: [address] [place] [address] Performed By: #### 5 8410-2 #### [facility] [id number] [address] [place] [address] [place] Hemoglobin (Bld) [Mass/Vol] 12.4 g/dL Normal 11.5-15.5 [facility] Comment on above: Order Comment: Speci men Type: BLOOD SPECIMEN [facility] Address: [address] [place] [address] Performed By: #### 5 8410-2 #### [facility] [id number] [address] [place] [address] [place] MCH (RBC) [Entitic mass] 29.5 pg Normal 26.0-34.0 [facility] Comment on above: Order Comment: Speci men Type: BLOOD SPECIMEN [facility] Address: [address] [place] [address] Performed By: #### 5 8410-2 #### [facility] [id number] [address] [place] [address] [place] MCHC (RBC) [Mass/Vol] 33.6 g/dL Normal 30.5-36.0 [facility] Comment on above: Order Comment: Speci men Type: BLOOD SPECIMEN [facility] Address: [address] [id number] Performed By: #### 5 8410-2 #### [facility] CLIA [id number] [address] [place] [address] [place] MCV (RBC) [Entitic vol] 87.6 fL Normal 80.0-100.0 C [facility] Comment on above: Order Comment: Speci men Type: BLOOD SPECIMEN [facility] Address: [address] [place], [place] [address] Performed By: #### 5 8410-2 #### [facility] CLIA [id number] [address] [place] [address] [place] Nucleated RBC (Bld) [#/Vol] 10*3/uL Normal <0.01 [facility] Comment on above: Order Comment: Speci men Type: BLOOD SPECIMEN [facility] Address: [address] [place] [address] Performed By: #### 5 8410-2 #### [facility] CLIA [id number] [address] [place] [address] [place] Platelet mean volume (Bld) [Entitic vol] 10.5 fL Normal 9.0-12.7 [facility] Comment on above: Order Comment: Speci men Type: BLOOD SPECIMEN [facility] Address: [address] [place] [address] Performed By: #### 5 8410-2 #### [facility] CLIA [id number] [address] [place] [address] [place] Platelets (Bld) [#/Vol] 193 10*3/uL Normal 150-400 [facility] Comment on above: Order Comment: Speci men Type: BLOOD SPECIMEN [facility] Address: [address] [place] [address] Performed By: #### 5 8410-2 #### [facility] CLIA [id number] [address] [place] [address] [place] RBC (Bld) [#/Vol] 4.21 10*6/uL Normal 3.90-5.20 [facility] Comment on above: Order Comment: Speci men Type: BLOOD SPECIMEN [facility] Address: [address] [place] [address] Performed By: #### 5 8410-2 #### [facility] CLIA [id number] [address] [place] [address] [place] WBC (Bld) [#/Vol] 6.89 10*3/uL Normal 3.70-11.00 [facility] Comment on above: Order Comment: Speci men Type: BLOOD SPECIMEN [facility] Address: [address] [place] [address] Performed By: #### 5 8410-2 #### [facility] CLIA [id number] [address] [place] [address] [place] [facility] KAITLYN ESCOBAR I ([id number]) 1950 F Date Time Provider Department 02/26/25 [facility] your visit today, we recorded the following information about you: Lelia Cast 02/26/2025 8:38 AM Signed Patient called and would like to know if you can work her in for fatigue? She didn't know if she needs her iron or labs done to see why she's exhausted all of the time. She also said she get short winded. Please advise. Thank you. Patient last appointment:09/26/2024 (home) [phone] (cell) Leliastephanie Cast Perla Barajas MA 02/26/2025 8:49 AM Signed Spoke with patient offered her the Walk [facility] AND gave her the hours She is not in pain she is just exhausted, she did go on an 8 day trip but got back a week ago AND is still so tired. Patient said that she is wonder if Dr. Dhaliwal would be okay with going to an urgent care closer to home since she lives in [place]! Kentrell Dhaliwal II, MD 02/26/2025 9:04 AM Signed She should go wherever is most convenient for her I can print an order for labs if she wants to go to a [facility] facility Perla Barajas MA 02/26/2025 9:06 AM Signed Left message on voicemail for patient to return our call. Phone number provided. Jasmin Garza 02/26/2025 10:02 AM Signed Patient returned call to the office and states that she will go to an urgent care closer to her. Also thanked Dr Dhaliwal for putting the order in and will go to a [facility] facility for blood work Thank you Allergies As of Date: 02/26/2025 Noted Allergy Reaction LATEX 06/22/2020 10 - Anaphylaxis ABILIFY (ARIPIPRAZOLE) 04/19/2022 14 - Other: See Comments Comments: Muscles couldn't get up CODEINE 06/22/2020 6 - Diarrhea COMPAZINE (PROCHLORPERAZINE) 06/22/2020 17 - Myalgia LEVAQUIN (LEVOFLOXACIN) 06/22/2020 6 - Diarrhea OMNICEF (CEFDINIR) 06/22/2020 6 - Diarrhea PREDNISONE 08/30/2021 8 - GI Upset PROPOXYPHENE 06/23/2015 16 - Unknown [id number] REDUCTASE INHIBIT*06/22/2020 6 - Diarrhea 5 - Intolerance SULFA (SULFONAMIDE ANTIBIOTICS) 06/15/2020 14 - Other: See Comments Comments: Leg pain SHELLFISH CONTAINING PRODUCTS 11/29/2012 7 - Swelling Date Reviewed: 01/08/2025 Reviewed by: Kentrell Dhaliwal II, MD - Fully Assessed Reason for Visit: Patient Question [2537] Primary Visit Diagnosis:Gastroesopha geal reflux disease, unspecified whether esophagitis present [K21.9] Other Visit Diagnoses:Hypothyroidi sm, acquired [E03.9] Iron deficiency anemia, unspecified iron deficiency anemia type [D50.9] Nausea [R11.0] Vitamin D deficiency [E55.9] Vitamin B12 deficiency [E53.8] Fatigue, unspecified type [R53.83] 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 - ALPRAZolam (XANAX) 1 mg tablet Take 1 tablet by mouth every 12 hours as needed for up to 30 days. - furosemide (LASIX) 40 mg tablet Take 1 tablet by mouth once daily. - busPIRone (BUSPAR) 15 mg tablet Take 0.5 tablets by mouth two times a day. - zolpidem (AMBIEN) 10 mg Take 1 tablet by mouth at bedtime as needed for up to 90 days. - levothyroxine (SYNTHROID) 50 mcg tablet Take 1 tablet by mouth once daily. - ezetimibe (ZETIA) 10 mg tablet Take 1 tablet by mouth once daily. - rOPINIRole (REQUIP) 0.5 mg tablet Take 1 tablet by mouth two times a day. - promethazine (PHENERGAN) 25 mg tablet Take 1 tablet by mouth every 6 hours as needed. - clotrimazole-betametha sone (LOTRISONE) cream Apply to affected area two times a day. - omeprazole (PRILOSEC) 40 mg capsule Take 1 capsule by mouth two times a day. - polyethylene glycol 3350 17 gram packet Take 17 g by mouth two times a day. Dissolve dose in 4 - 8 ounces of liquid and take as directed. - warfarin (COUMADIN) 5 mg tablet Take 1 tablet by mouth once daily. - citalopram (CELEXA) 20 mg tablet Take 1 tablet by mouth once daily. - albuterol HFA (PROVENTIL HFA, VENTOLIN HFA) 90 mcg/actuation inhaler Inhale 2 Puffs as instructed every 6 hours as needed for wheezing/shortness of breath. - simethicone 250 mg cap Take 1 capsule by mouth three times a day. - hyoscyamine SR (LEVBID) 0.375 mg 12 hr tablet Take 1 tablet by mouth two times a day. - ondansetron (ZOFRAN) 4 mg tablet Take 1 tablet by mouth every 6 hours as needed. - cyclo (more content not included)... Normal [facility] Iron and Iron binding capaci ty panelon 02-26-2025 Iron [Mass/Vol] 107 ug/dL Normal 41-186 [facility] Comment on above: Order Comment: Speci men Type: BLOOD SPECIMEN [facility] Address: [address] [place] [address] Performed By: #### 2 132-9, 3016-3, 07737-8 #### [facility] CLIA [id number] [address] [place] [address] [place] Iron binding capacity [Mass/Vol] 385 ug/dL Normal 232-386 [facility] Comment on above: Order Comment: Speci men Type: BLOOD SPECIMEN [facility] Address: [address] [place] [address] Performed By: #### 2 132-9, 3016-3, 33808-6 #### [facility] CLIA [id number] [address] [place] [address] [place] Iron/TIBC [Molar ratio] 27.8 % Normal 15.0-57.0 C [facility] Comment on above: Order Comment: Speci men Type: BLOOD SPECIMEN [facility] Address: [address] [place] [address] Performed By: #### 2 132-9, 3016-3, 90965-3 #### [facility] CLIA [id number] [address] [place] [address] [place] TSH SerPl-aCncon 02-26-2025 TSH Qn 1.550 m[IU]/L Normal 0.270-4.200 [facility] Comment on above: Order Comment: Speci men Type: BLOOD SPECIMEN [facility] Address: [address] [place] [address] Performed By: #### 2 132-9, 3016-3, 46050-2 #### [facility] CLIA [id number] [address] [place] [address] [place] Vit B12 SerPl-mCncon 025 Cobalamin (Vitamin B12) [Mass/Vol] 366 pg/mL Normal 232-1245 [facility] Comment on above: Order Comment: Speci men Type: BLOOD SPECIMEN [facility] Address: [address] [place] [address] Performed By: #### 2 132-9, 3016-3, 01114-3 #### [facility] CLIA [id number] [address] [place] [address] [place] CNPNon 01-29-2025 [facility]NP[facility] Telephone (FPUPDV) KAITLYN ESCOBAR I ([id number]) 1950 F Date Time Provider Department 01/29/25 KENTRELL DHALIWAL II [facility] During your visit today, we recorded the following information about you: Kavya Argueta 01/29/2025 9:14 AM Signed Patients daughter along with patient called today. Reason for Call: patient left 3 messages requesting refill for Xanax and has been out for 4 days now. Patient hasn't been able to sleep and anxiety is getting bad. Requesting script be sent to pharmacy today Thank you [phone] (home) [phone] (cell) Patient last appointment: 09/26/2024 Eugenia Mckay MA 01/29/2025 9:22 AM Signed Please advise Kentrell Dhaliwal II, MD 01/29/2025 9:43 AM Signed This is the first refill request I have gotten. Rx sent to the pharmacy. Ileana Fish MA 01/29/2025 9:55 AM Signed Left message for pt to return the call, number provided Stefania Puri MA 01/29/2025 12:37 PM Signed When patient returns call, can you please verify what number she is calling and leaving the requests for refills on? Since she states that she has called and left multiple requests we need to verify where she is calling. Thanks LISA Oh Keanna, MA 01/30/2025 8:32 AM Signed Left message for pt to return the call, number provided. LISA Adhikari Monica 01/30/2025 8:37 AM Signed Patient was selecting the wrong office. Advised of the correct one to choose. Allergies As of Date: 01/29/2025 Noted Allergy Reaction LATEX 06/22/2020 10 - Anaphylaxis ABILIFY (ARIPIPRAZOLE) 04/19/2022 14 - Other: See Comments Comments: Muscles couldn't get up CODEINE 06/22/2020 6 - Diarrhea COMPAZINE (PROCHLORPERAZINE) 06/22/2020 17 - Myalgia LEVAQUIN (LEVOFLOXACIN) 06/22/2020 6 - Diarrhea OMNICEF (CEFDINIR) 06/22/2020 6 - Diarrhea PREDNISONE 08/30/2021 8 - GI Upset PROPOXYPHENE 06/23/2015 16 - Unknown [id number] REDUCTASE INHIBIT*06/22/2020 6 - Diarrhea 5 - Intolerance SULFA (SULFONAMIDE ANTIBIOTICS) 06/15/2020 14 - Other: See Comments Comments: Leg pain SHELLFISH CONTAINING PRODUCTS 11/29/2012 7 - Swelling Date Reviewed: 01/08/2025 Reviewed by: Kentrell Dhaliwal II, MD - Fully Assessed Reason for Visit: Medication Request [138] Visit Diagnosis:Anxiety and depression [F41.9, F32.A] Order(s):ALPRAZolam (XANAX) 1 mg tabletTake 1 tablet by mouth every 12 hours as needed for up to 30 days.Disp: 60 tabletRfl: 0 Prescriptions as of 01/30/2025 - ALPRAZolam (XANAX) 1 mg tablet Take 1 tablet by mouth every 12 hours as needed for up to 30 days. - furosemide (LASIX) 40 mg tablet Take 1 tablet by mouth once daily. - busPIRone (BUSPAR) 15 mg tablet Take 0.5 tablets by mouth two times a day. - zolpidem (AMBIEN) 10 mg Take 1 tablet by mouth at bedtime as needed for up to 90 days. - levothyroxine (SYNTHROID) 50 mcg tablet Take 1 tablet by mouth once daily. - ezetimibe (ZETIA) 10 mg tablet Take 1 tablet by mouth once daily. - rOPINIRole (REQUIP) 0.5 mg tablet Take 1 tablet by mouth two times a day. - promethazine (PHENERGAN) 25 mg tablet Take 1 tablet by mouth every 6 hours as needed. - clotrimazole-betametha sone (LOTRISONE) cream Apply to affected area two times a day. - omeprazole (PRILOSEC) 40 mg capsule Take 1 capsule by mouth two times a day. - polyethylene glycol 3350 17 gram packet Take 17 g by mouth two times a day. Dissolve dose in 4 - 8 ounces of liquid and take as directed. - warfarin (COUMADIN) 5 mg tablet Take 1 tablet by mouth once daily. - citalopram (CELEXA) 20 mg tablet Take 1 tablet by mouth once daily. - albuterol HFA (PROVENTIL HFA, VENTOLIN HFA) 90 mcg/actuation inhaler Inhale 2 Puffs as instructed every 6 hours as needed for wheezing/shortness of breath. - simethicone 250 mg cap Take 1 capsule by mouth three times a day. - hyoscyamine SR (LEVBID) 0.375 mg 12 hr tablet Take 1 tablet by mouth two times a day. - ondansetron (ZOFRAN) 4 mg tablet Take 1 tablet by mouth every 6 hours as needed. - cyclobenzaprine (FLEXERIL) 10 mg tablet Take 1 tablet by mouth three times daily as needed. - docusate sodium (COLACE) 100 mg capsule Take 1 capsule by mouth twice daily. 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 [facility] 01-08-2025 [facility] Office Visit ([facility] ) KAITLYN ESCOBAR I ([id number]) 1950 F Date Time Provider Department 01/08/25 2:00 PM KENTRELL DHALIWAL II [facility] During your visit today, we recorded the following information about you: Pulse Respiration Blood pressure Weight 82/minute 16/minute 124/74 68.8 kg Height 1.549 m Kentrell Dhaliwal II, MD 01/08/2025 5:50 PM Signed Kentrell Dhaliwal II, MD [place] [id number] NOEMI Escobar is a 74 year old female who presents with F/U 4 months (Pt asked if it would be possible to increase her Lasix at all, sates that some days she swells a lot. Pt states she is doing well over all.). HPI Patient is in today to follow-up her chronic problems and states that she is actually doing fairly well right now. She has been doing well with her stomach and she would like a refill on a couple medicines to use as needed. Review of Systems Constitutional: Negative for activity change, appetite change, chills, diaphoresis, fatigue, fever and unexpected weight change. HENT: Negative for congestion, dental problem, ear pain, hearing loss, nosebleeds, postnasal drip, rhinorrhea, sinus pressure, sinus pain, sore throat, trouble swallowing and voice change. Eyes: Negative for discharge, redness and visual disturbance. Respiratory: Negative for apnea, cough, choking, chest tightness, shortness of breath, wheezing and stridor. Cardiovascular: Negative for chest pain, palpitations and leg swelling. Gastrointestinal: Negative for abdominal distention, abdominal pain, blood in stool, constipation, diarrhea, nausea and vomiting. Endocrine: Negative for cold intolerance, heat intolerance, polydipsia, polyphagia and polyuria. Genitourinary: Negative for decreased urine volume, difficulty urinating, dysuria, enuresis, frequency, hematuria and urgency. Musculoskeletal: Negative for arthralgias, gait problem and myalgias. Skin: Negative for color change, pallor, rash and wound. Allergic/Immunologic: Negative for environmental allergies. Neurological: Negative for dizziness, tremors, syncope, facial asymmetry, speech difficulty, weakness, light-headedness, numbness and headaches. Hematological: Negative for adenopathy. Does not bruise/bleed easily. Psychiatric/Behavioral : Negative for agitation, behavioral problems, confusion, decreased concentration, dysphoric mood, hallucinations, self-injury, sleep disturbance and suicidal ideas. The patient is not nervous/anxious and is not hyperactive. PAST MEDICAL HISTORY Diagnosis Date Anxiety and depression Diabetes (HCC) Drug-induced Parkinson's disease (HCC) GERD (gastroesophageal reflux disease) History of DVT (deep vein thrombosis) IBS (irritable bowel syndrome) Seizures (HCC) Small bowel obstruction (HCC) Tremor PAST SURGICAL HISTORY Procedure Laterality Date CHOLECYSTECTOMY HX COLON SURGERY HX HYSTERECTOMY HX ROTATOR CUFF REPAIR Left TONSILLECTOMY HX TOOTH EXTRACTION Bilateral 2023 multiple teeth extracted WRIST SURGERY HX Right Social History Tobacco Use Smoking status: Never Smokeless tobacco: Never Vaping Use Vaping status: Never Used Substance Use Topics Alcohol use: Not Currently Drug use: Never FAMILY HISTORY Problem Relation Age of Onset Emphysema Mother Heart disease Father The ROS, medical, surgical, family, and social history were reviewed by Kentrell Dhaliwal II, MD ALLERGIES Allergen Reactions Latex Anaphylaxis Abilify [Aripiprazo* Other: See Comments Muscles couldn't get up Codeine Diarrhea Compazine [Prochlor* Myalgia Levaquin [Levofloxa* Diarrhea Omnicef [Cefdinir] Diarrhea Prednisone GI Upset Propoxyphene Unknown Ddainqf-Qgf-Ctm Red* Diarrhea, Intolerance Sulfa (Sulfonamide * Other: See Comments Leg pain Shellfish Containin* Swelling Current Outpatient Medications Medication Sig busPIRone (BUSPAR) 15 mg tablet Take 0.5 tablets by mouth two times a day. (Patient taking differently: Take 15 mg by mouth two times a day.) zolpidem (AMBIEN) 10 mg Take 1 tablet by mouth at bedtime as needed for up to 90 days. ALPRAZolam (XANAX) 1 mg tablet Take 1 tablet by mouth every 12 hours as needed for up to 30 days. levothyroxine (SYNTHROID) 50 mcg tablet Take 1 tablet by mouth once daily. ezetimibe (ZETIA) 10 mg tablet Take 1 tablet by mouth once daily. rOPINIRole (REQUIP) 0.5 mg tablet Take 1 tablet by mouth two times a day. promethazine (PHENERGAN) 25 mg tablet Take 1 tablet by mouth every 6 hours as needed. clotrimazole-betametha sone (LOTRISONE) cream Apply to affected area two times a day. omeprazole (PRILOSEC) 40 mg capsule Take 1 capsule by mouth two times a day. polyethylene glycol 3350 17 gram packet Take 17 g by mouth two times a day. Dissolve dose in 4 - 8 ounces of liquid and take as directed. warfarin ( (more content not included)... [facility] 01-07-[facility]25 [place] Telephone ([facility]) KAITLYN ESCOBAR Franny ([id number]) 1950 F Date Time Provider Department 01/07/25 KENTRELL DHALIWAL II [facility] During your visit today, we recorded the following information about you: Husam Grant MA 01/07/2025 2:24 PM Signed Called patient however no answer. Left message informing patient of appointment and office location. Husam Grant MA Allergies As of Date: 01/07/2025 Noted Allergy Reaction LATEX 06/22/2020 10 - Anaphylaxis ABILIFY (ARIPIPRAZOLE) 04/19/2022 14 - Other: See Comments Comments: Muscles couldn't get up CODEINE 06/22/2020 6 - Diarrhea COMPAZINE (PROCHLORPERAZINE) 06/22/2020 17 - Myalgia LEVAQUIN (LEVOFLOXACIN) 06/22/2020 6 - Diarrhea OMNICEF (CEFDINIR) 06/22/2020 6 - Diarrhea PREDNISONE 08/30/2021 8 - GI Upset PROPOXYPHENE 06/23/2015 16 - Unknown [id number] REDUCTASE INHIBIT*06/22/2020 6 - Diarrhea 5 - Intolerance SULFA (SULFONAMIDE ANTIBIOTICS) 06/15/2020 14 - Other: See Comments Comments: Leg pain SHELLFISH CONTAINING PRODUCTS 11/29/2012 7 - Swelling Date Reviewed: 09/26/2024 Reviewed by: Dorothy Wallace MA - Fully Assessed Reason for Visit: Appointment [186] Prescriptions as of 01/07/2025 - busPIRone (BUSPAR) 15 mg tablet Take 0.5 tablets by mouth two times a day. - zolpidem (AMBIEN) 10 mg Take 1 tablet by mouth at bedtime as needed for up to 90 days. - ALPRAZolam (XANAX) 1 mg tablet Take 1 tablet by mouth every 12 hours as needed for up to 30 days. - levothyroxine (SYNTHROID) 50 mcg tablet Take 1 tablet by mouth once daily. - ezetimibe (ZETIA) 10 mg tablet Take 1 tablet by mouth once daily. - rOPINIRole (REQUIP) 0.5 mg tablet Take 1 tablet by mouth two times a day. - promethazine (PHENERGAN) 25 mg tablet Take 1 tablet by mouth every 6 hours as needed. - furosemide (LASIX) 20 mg tablet Take 1 tablet by mouth once daily. - clotrimazole-betametha sone (LOTRISONE) cream Apply to affected area two times a day. - omeprazole (PRILOSEC) 40 mg capsule Take 1 capsule by mouth two times a day. - sucralfate (CARAFATE) 1 gram tablet Take 1 tablet by mouth four times daily. - fluticasone-umeclidin- vilanter (TRELEGY ELLIPTA) 100-62.5-25 mcg inhalation powder Inhale 1 Puff as instructed once daily. - polyethylene glycol 3350 17 gram packet Take 17 g by mouth two times a day. Dissolve dose in 4 - 8 ounces of liquid and take as directed. - warfarin (COUMADIN) 5 mg tablet Take 1 tablet by mouth once daily. - ferrous gluconate 236 mg (27 mg iron) tab Take 1 tablet by mouth once daily. - citalopram (CELEXA) 20 mg tablet Take 1 tablet by mouth once daily. - naphazoline-pheniramin e eye drops (NAPHCON-A) 0.025-0.3 % ophthalmic solution Use 2 Drops in the left eye every 6 hours as needed. - ondansetron (ZOFRAN) 8 mg tablet Take 1 tablet by mouth every 8 hours as needed for nausea/vomiting. - albuterol HFA (PROVENTIL HFA, VENTOLIN HFA) 90 mcg/actuation inhaler Inhale 2 Puffs as instructed every 6 hours as needed for wheezing/shortness of breath. - diphenoxylate-atropine (LOMOTIL) 2.5-0.025 mg per tablet Take 1 tablet by mouth four times a day as needed for up to 10 days. - ondansetron orally disintegrating (ZOFRAN ODT) 4 mg disintegrating tablet Take 1 tablet by mouth every 8 hours as needed for nausea/vomiting. - uehckbboer-hpfggcpn-cf rmoterol (BREZTRI AEROSPHERE) 160-9-4.8 mcg/actuation HFA aerosol inhaler Inhale 2 Puffs as instructed two times a day. - simethicone 250 mg cap Take 1 capsule by mouth three times a day. - hyoscyamine SR (LEVBID) 0.375 mg 12 hr tablet Take 1 tablet by mouth two times a day. - dicyclomine (BENTYL) 20 mg tablet Take 1 tablet by mouth three times a day. - ondansetron (ZOFRAN) 4 mg tablet Take 1 tablet by mouth every 6 hours as needed. - buPROPion XL (WELLBUTRIN XL) 150 mg 24 hr tablet Take 2 tablets by mouth once daily. - cyclobenzaprine (FLEXERIL) 10 mg tablet Take 1 tablet by mouth three times daily as needed. - docusate sodium (COLACE) 100 mg capsule Take 1 capsule by mouth twice daily. - SF 5000 PLUS 1.1 % dental cream Problem List As Of Date 01/07/2025 Noted Resolved Parkinson's disease (HCC) [G20.A1] 06/22/2020 04/17/2022 Irritable bowel syndrome with both constipation* 0 Subclinical hypothyroidism [E03.8] 06/22/2020 History of DVT (deep vein thrombosis) [Z86.718] 06/22/2020 Prediabetes [R73.03] 06/22/2020 GERD without esophagitis [K21.9] 06/22/2020 04/17/2022 Mild episode of recurrent major depressive diso*06/22/2020 MOODY (generalized anxiety disorder) [F41.1] 06/22/2020 Chronic insomnia [F51.04] 06/22/2020 GERD (gastroesophageal reflux disease) [K21.9] Drug-induced Parkinson's disease (HCC) [G21.19] Diabetes (HCC) [E11.9] Anxiety and depression [F41.9, F32.A] Hypothyroidism, acquired [E03.9] 08/30/2021 Small bowel obstruction (HCC) [K56.609] more content not included)... [facility] 12-08-2024 [facility] Telephone ([facility]) KAITLYN ESCOBAR I ([id number]) 1950 F Date Time Provider Department 12/08/24 KENTRELL DHALIWAL II [facility] During your visit today, we recorded the following information about you: Sanjuana Brandt MA 12/08/2024 4:43 PM Signed Left message for patient to call. Phone number was provided. Patient left message on refill line, please verify what medication patient was needing Sanjuana Brandt MA 12/10/2024 8:39 AM Signed Refills were sent Allergies As of Date: 12/08/2024 Noted Allergy Reaction LATEX 06/22/2020 10 - Anaphylaxis ABILIFY (ARIPIPRAZOLE) 04/19/2022 14 - Other: See Comments Comments: Muscles couldn't get up CODEINE 06/22/2020 6 - Diarrhea COMPAZINE (PROCHLORPERAZINE) 06/22/2020 17 - Myalgia LEVAQUIN (LEVOFLOXACIN) 06/22/2020 6 - Diarrhea OMNICEF (CEFDINIR) 06/22/2020 6 - Diarrhea PREDNISONE 08/30/2021 8 - GI Upset PROPOXYPHENE 06/23/2015 16 - Unknown TEAVZMM-[id number] REDUCTASE INHIBIT*06/22/2020 6 - Diarrhea 5 - Intolerance SULFA (SULFONAMIDE ANTIBIOTICS) 06/15/2020 14 - Other: See Comments Comments: Leg pain SHELLFISH CONTAINING PRODUCTS 11/29/2012 7 - Swelling Date Reviewed: 09/26/2024 Reviewed by: Dorothy Wallace MA - Fully Assessed Reason for Visit: Refill Request [94] Prescriptions as of 12/10/2024 - levothyroxine (SYNTHROID) 50 mcg tablet Take 1 tablet by mouth once daily. - ezetimibe (ZETIA) 10 mg tablet Take 1 tablet by mouth once daily. - rOPINIRole (REQUIP) 0.5 mg tablet Take 1 tablet by mouth two times a day. - ALPRAZolam (XANAX) 1 mg tablet Take 1 tablet by mouth every 12 hours as needed for up to 30 days. - promethazine (PHENERGAN) 25 mg tablet Take 1 tablet by mouth every 6 hours as needed. - furosemide (LASIX) 20 mg tablet Take 1 tablet by mouth once daily. - nabumetone (RELAFEN) 750 mg tablet Take 1 tablet by mouth every 12 hours as needed for pain. - zolpidem (AMBIEN) 10 mg Take 1 tablet by mouth at bedtime as needed for up to 90 days. - clotrimazole-betametha sone (LOTRISONE) cream Apply to affected area two times a day. - omeprazole (PRILOSEC) 40 mg capsule Take 1 capsule by mouth two times a day. - sucralfate (CARAFATE) 1 gram tablet Take 1 tablet by mouth four times daily. - fluticasone-umeclidin- vilanter (TRELEGY ELLIPTA) 100-62.5-25 mcg inhalation powder Inhale 1 Puff as instructed once daily. - polyethylene glycol 3350 17 gram packet Take 17 g by mouth two times a day. Dissolve dose in 4 - 8 ounces of liquid and take as directed. - warfarin (COUMADIN) 5 mg tablet Take 1 tablet by mouth once daily. - busPIRone (BUSPAR) 15 mg tablet Take 1 tablet by mouth three times a day. - ferrous gluconate 236 mg (27 mg iron) tab Take 1 tablet by mouth once daily. - citalopram (CELEXA) 20 mg tablet Take 1 tablet by mouth once daily. - naphazoline-pheniramin e eye drops (NAPHCON-A) 0.025-0.3 % ophthalmic solution Use 2 Drops in the left eye every 6 hours as needed. - ondansetron (ZOFRAN) 8 mg tablet Take 1 tablet by mouth every 8 hours as needed for nausea/vomiting. - albuterol HFA (PROVENTIL HFA, VENTOLIN HFA) 90 mcg/actuation inhaler Inhale 2 Puffs as instructed every 6 hours as needed for wheezing/shortness of breath. - diphenoxylate-atropine (LOMOTIL) 2.5-0.025 mg per tablet Take 1 tablet by mouth four times a day as needed for up to 10 days. - ondansetron orally disintegrating (ZOFRAN ODT) 4 mg disintegrating tablet Take 1 tablet by mouth every 8 hours as needed for nausea/vomiting. - jmxyiacyfi-fsgzlomr-jm rmoterol (BREZTRI AEROSPHERE) 160-9-4.8 mcg/actuation HFA aerosol inhaler Inhale 2 Puffs as instructed two times a day. - simethicone 250 mg cap Take 1 capsule by mouth three times a day. - hyoscyamine SR (LEVBID) 0.375 mg 12 hr tablet Take 1 tablet by mouth two times a day. - dicyclomine (BENTYL) 20 mg tablet Take 1 tablet by mouth three times a day. - ondansetron (ZOFRAN) 4 mg tablet Take 1 tablet by mouth every 6 hours as needed. - buPROPion XL (WELLBUTRIN XL) 150 mg 24 hr tablet Take 2 tablets by mouth once daily. - cyclobenzaprine (FLEXERIL) 10 mg tablet Take 1 tablet by mouth three times daily as needed. - docusate sodium (COLACE) 100 mg capsule Take 1 capsule by mouth twice daily. - SF 5000 PLUS 1.1 % dental cream Problem List As Of Date 12/08/2024 Noted Resolved Parkinson's disease (HCC) [G20.A1] 06/22/2020 04/17/2022 Irritable bowel syndrome with both constipation* 0 Subclinical hypothyroidism [E03.8] 06/22/2020 History of DVT (deep vein thrombosis) [Z86.718] 06/22/2020 Prediabetes [R73.03] 06/22/2020 GERD without esophagitis [K21.9] 06/22/2020 04/17/2022 Mild episode of recurrent major depressive diso*06/22/2020 MOODY (generalized anxiety disorder) [F41.1] 06/22/2020 Chronic insomnia [F51.04] 06/22/2020 GERD (gastroesophageal reflux disease) [K21.9] Drug-induced Parkinson's di (more content not included)... [facility] 11-28-2024 [facility] Telephone ([facility]) KAITLYN ESCOBAR I ([id number]) 1950 F Date Time Provider Department 11/28/24 KENTRELL DHALIWAL II [facility] During your visit today, we recorded the following information about you: Cinthia Rob 11/28/2024 12:31 PM Signed Patient called in today. She said that she has a cough and phlegm in her throat. I advised her she could use the walk in clinic or go to [facility] care. She did make an appointment as well to see Dr. Dhaliwal. Allergies As of Date: 11/28/2024 Noted Allergy Reaction LATEX 06/22/2020 10 - Anaphylaxis ABILIFY (ARIPIPRAZOLE) 04/19/2022 14 - Other: See Comments Comments: Muscles couldn't get up CODEINE 06/22/2020 6 - Diarrhea COMPAZINE (PROCHLORPERAZINE) 06/22/2020 17 - Myalgia LEVAQUIN (LEVOFLOXACIN) 06/22/2020 6 - Diarrhea OMNICEF (CEFDINIR) 06/22/2020 6 - Diarrhea PREDNISONE 08/30/2021 8 - GI Upset PROPOXYPHENE 06/23/2015 16 - Unknown IHCJBWC-[id number]-ZYV REDUCTASE INHIBIT*06/22/2020 6 - Diarrhea 5 - Intolerance SULFA (SULFONAMIDE ANTIBIOTICS) 06/15/2020 14 - Other: See Comments Comments: Leg pain SHELLFISH CONTAINING PRODUCTS 11/29/2012 7 - Swelling Date Reviewed: 09/26/2024 Reviewed by: Dorothy Wallace MA - Fully Assessed Reason for Visit: Appointment [186] Prescriptions as of 11/28/2024 - rOPINIRole (REQUIP) 0.5 mg tablet Take 1 tablet by mouth two times a day. - ALPRAZolam (XANAX) 1 mg tablet Take 1 tablet by mouth every 12 hours as needed for up to 30 days. - promethazine (PHENERGAN) 25 mg tablet Take 1 tablet by mouth every 6 hours as needed. - furosemide (LASIX) 20 mg tablet Take 1 tablet by mouth once daily. - nabumetone (RELAFEN) 750 mg tablet Take 1 tablet by mouth every 12 hours as needed for pain. - zolpidem (AMBIEN) 10 mg Take 1 tablet by mouth at bedtime as needed for up to 90 days. - clotrimazole-betametha sone (LOTRISONE) cream Apply to affected area two times a day. - omeprazole (PRILOSEC) 40 mg capsule Take 1 capsule by mouth two times a day. - sucralfate (CARAFATE) 1 gram tablet Take 1 tablet by mouth four times daily. - fluticasone-umeclidin- vilanter (TRELEGY ELLIPTA) 100-62.5-25 mcg inhalation powder Inhale 1 Puff as instructed once daily. - polyethylene glycol 3350 17 gram packet Take 17 g by mouth two times a day. Dissolve dose in 4 - 8 ounces of liquid and take as directed. - warfarin (COUMADIN) 5 mg tablet Take 1 tablet by mouth once daily. - busPIRone (BUSPAR) 15 mg tablet Take 1 tablet by mouth three times a day. - ferrous gluconate 236 mg (27 mg iron) tab Take 1 tablet by mouth once daily. - citalopram (CELEXA) 20 mg tablet Take 1 tablet by mouth once daily. - ezetimibe (ZETIA) 10 mg tablet take 1 tablet by mouth once daily - naphazoline-pheniramin e eye drops (NAPHCON-A) 0.025-0.3 % ophthalmic solution Use 2 Drops in the left eye every 6 hours as needed. - ondansetron (ZOFRAN) 8 mg tablet Take 1 tablet by mouth every 8 hours as needed for nausea/vomiting. - albuterol HFA (PROVENTIL HFA, VENTOLIN HFA) 90 mcg/actuation inhaler Inhale 2 Puffs as instructed every 6 hours as needed for wheezing/shortness of breath. - levothyroxine (SYNTHROID) 50 mcg tablet Take 1 tablet by mouth once daily. - diphenoxylate-atropine (LOMOTIL) 2.5-0.025 mg per tablet Take 1 tablet by mouth four times a day as needed for up to 10 days. - ondansetron orally disintegrating (ZOFRAN ODT) 4 mg disintegrating tablet Take 1 tablet by mouth every 8 hours as needed for nausea/vomiting. - norjxgzjhc-yzggvnpk-kd rmoterol (BREZTRI AEROSPHERE) 160-9-4.8 mcg/actuation HFA aerosol inhaler Inhale 2 Puffs as instructed two times a day. - simethicone 250 mg cap Take 1 capsule by mouth three times a day. - hyoscyamine SR (LEVBID) 0.375 mg 12 hr tablet Take 1 tablet by mouth two times a day. - dicyclomine (BENTYL) 20 mg tablet Take 1 tablet by mouth three times a day. - ondansetron (ZOFRAN) 4 mg tablet Take 1 tablet by mouth every 6 hours as needed. - buPROPion XL (WELLBUTRIN XL) 150 mg 24 hr tablet Take 2 tablets by mouth once daily. - cyclobenzaprine (FLEXERIL) 10 mg tablet Take 1 tablet by mouth three times daily as needed. - docusate sodium (COLACE) 100 mg capsule Take 1 capsule by mouth twice daily. - SF 5000 PLUS 1.1 % dental cream Problem List As Of Date 11/28/2024 Noted Resolved Parkinson's disease (HCC) [G20.A1] 06/22/2020 04/17/2022 Irritable bowel syndrome with both constipation* 0 Subclinical hypothyroidism [E03.8] 06/22/2020 History of DVT (deep vein thrombosis) [Z86.718] 06/22/2020 Prediabetes [R73.03] 06/22/2020 GERD without esophagitis [K21.9] 06/22/2020 04/17/2022 Mild episode of recurrent major depressive diso*06/22/2020 MOODY (generalized anxiety disorder) [F41.1] 06/22/2020 Chronic insomnia [F51.04] 06/22/2020 GERD (gastroesophageal reflux disease) [K21.9] Drug-induced Parkinson's diseas (more content not included)... [facility] 09-26-2024 [facility] Office Visit ([facility] ) KAITLYN ESCOBAR I ([id number]) 1950 F Date Time Provider Department 09/26/24 2:40 PM KENTRELL DHALIWAL II [facility] During your visit today, we recorded the following information about you: Temperature Pulse Respiration Blood pressure 98.7 degrees 81/minute 24/minute 126/82 Weight Height 63.3 kg 1.549 m Kentrell Dhaliwal II, MD 09/26/2024 10:24 PM Signed Transitional Care Management TCM Eligibility Documentation Program: Transitional Care Management Status: Enrolled Effective Dates: 09/18/2024 - present Responsible Staff: Jessie Mccloud RN Discharge date: 09/17/2024 (Program start) Date of initial contact: 09/18/2024 Initial contact Target status: Successful; Contact made within 2 business days post-discharge Summary Discharged from: [facility] Admit Date: 09/14/24 Admitted for: Abdominal pain and biliary obstruction. Kentrell Dhaliwal II, MD Provider Documentation Kaitlyn Escobar is a 74 year old female here today for a follow up to recent hospitalization. I have reviewed the patient's hospital course including diagnostic testing performed during this hospitalization, their discharge medications, and my assessment and plan with the patient and any family members present at today's visit. HPI: Patient is in today to follow-up admission for abdominal discomfort. She states that she was having abdominal pain was dizzy, lightheaded and was a little bit confused and went to the ER for evaluation. Apparently she was dehydrated and her liver tests were significantly elevated. She states that she is not sure what they really diagnosed her with the but they state that the test they did were unremarkable and they sent her home after she had had IV fluids and started to feel better. She states she is feeling a little bit better now she is just kind of weak and she gets easily winded while she is walking. She does state that her albuterol inhaler does help a lot. I did note that her pulse ox both seated and just after exercise is normal today. She states that her stomach feels fairly well but she is nauseated and she states Phenergan helps but Phenergan makes her have a little bit more heartburn. ROS Vitals BP 126/82 Pulse 81 Temp (Src) 98.7 (Temporal) Resp 24 Ht 5' 1 (1.55m) Wt 139 lb 9.6 oz (63.3kg) SpO2 100% BMI 26.39 kg/(m2). Physical Exam ASSESSMENT/PLAN: 1. Generalized abdominal pain - ICD9: 789.07, ICD10: R10.84 (primary diagnosis) The pain is improved. We will be going to have her increase her omeprazole to twice daily, add Carafate before every meal and nightly. She is going to continue to take the Phenergan for nausea for now. She is going to call in 3 to 5 days or sooner if needed with an update 2. Gastroesophageal reflux disease, unspecified whether esophagitis present - ICD9: 530.81, ICD10: K21.9 See above 3. SOB (shortness of breath) - ICD9: 786.05, ICD10: R06.02 Given the fact that albuterol is helping even though she has normal oxygenation and her exam does not reveal any active wheezing were going to try her on Trelegy along with albuterol rescue inhaler. She is going to call in 3 to 5 days or sooner if needed with an update on this as well. 4. Anxiety and depression - ICD9: 300.00, 311, ICD10: F41.9, F32.A Clinically stable. Continue same medication and treatment. Follow up in 3 to 6 months or sooner if needed. - ALPRAZOLAM 1 MG TABLET 5. Elevated blood pressure reading without diagnosis of hypertension - ICD9: 796.2, ICD10: R03.0 Her blood pressure is normal today and she states that it was normal when she left the hospital. Kentrell Dhaliwal II, MD 3 to 5 days or sooner if needed with an update Allergies As of Date: 09/26/2024 Noted Allergy Reaction LATEX 06/22/2020 10 - Anaphylaxis ABILIFY (ARIPIPRAZOLE) 04/19/2022 14 - Other: See Comments Comments: Muscles couldn't get up CODEINE 06/22/2020 6 - Diarrhea COMPAZINE (PROCHLORPERAZINE) 06/22/2020 17 - Myalgia LEVAQUIN (LEVOFLOXACIN) 06/22/2020 6 - Diarrhea OMNICEF (CEFDINIR) 06/22/2020 6 - Diarrhea PREDNISONE 08/30/2021 8 - GI Upset PROPOXYPHENE 06/23/2015 16 - Unknown BSUYRYF-SNI-TPQ REDUCTASE INHIBIT*06/22/2020 6 - Diarrhea 5 - Intolerance SULFA (SULFONAMIDE ANTIBIOTICS) 06/15/2020 14 - Other: See Comments Comments: Leg pain [employer] 11/29/2012 7 - Swelling Date Reviewed: 09/26/2024 Reviewed by: Dorothy Wallace MA - Fully Assessed Reason for Visit: Transition Of Care [4074] Cmt: Pt states she has been trying her best since getting out the hospital, brings in paperwork from the ER. Pt is very winded while talking. Pt states that she has been taking Phenergan stops her nausea but gives her heartburn, feels the Zofran does not work as well. Medication Question [4338] Cmt: Pt asked if she should be using the albuterol (more content not included)... [facility] Basic Metabolic Profile (BMP )on 09-21-2024 BUN Normal 7-18 [facility] Comment on above: Result Comment: Canc elled via OM: Order cancelled - Patient discharged Performed By: #### L 500.2500 ####[facility] [address] [place], [address] BUN/CRE Normal 10-20 [facility] Comment on above: Result Comment: Canc elled via OM: Order cancelled - Patient discharged Performed By: #### L 500.2500 ####[facility] [address] [place], [address] CA,Total Normal 8.5-10.1 [facility] Comment on above: Result Comment: Canc elled via OM: Order cancelled - Patient discharged Performed By: #### L 500.2500 ####[facility] [address] [place], [address] CL Normal 98-107 [facility] Comment on above: Result Comment: Canc elled via OM: Order cancelled - Patient discharged Performed By: #### L 500.2500 ####[facility] [address] [place], [address] CO2 Normal 21.0-32.0 [facility] Comment on above: Result Comment: Canc elled via OM: Order cancelled - Patient discharged Performed By: #### L 500.2500 ####[facility] [address] [place], [address] CREAT,SERUM Normal 0.55-1.02 [facility] Comment on above: Result Comment: Canc elled via OM: Order cancelled - Patient discharged Performed By: #### L 500.2500 ####[facility] [address] [place], [address] EST GFR Normal >60 [facility] Comment on above: Result Comment: Canc elled via OM: Order cancelled - Patient discharged Performed By: #### L 500.2500 ####[facility] [address] [place], [address] EST GFR - AA Normal >60 [facility] Comment on above: Result Comment: Canc elled via OM: Order cancelled - Patient discharged Performed By: #### L 500.2500 ####[facility] [address] [place], [address] GAP Normal 5-15 [facility] Comment on above: Result Comment: Canc elled via OM: Order cancelled - Patient discharged Performed By: #### L 500.2500 ####[facility] [address] [place], [address] GLU Normal 74-106 [facility] Comment on above: Result Comment: Canc elled via OM: Order cancelled - Patient discharged Performed By: #### L 500.2500 ####[facility] [address] [place], [address] Potassium Normal 3.5-5.1 [facility] Comment on above: Result Comment: Canc elled via OM: Order cancelled - Patient discharged Performed By: #### L 500.2500 ####[facility] [address] [place], [address] Basic Metabolic Profile (BMP) Normal 136-145 [facility] Comment on above: Result Comment: Canc elled via OM: Order cancelled - Patient discharged Performed By: #### L 500.2500 ####[facility] [address] [place], [address] Basic Metabolic Profile (BMP )on 09-20-2024 BUN Normal 7-18 [facility] Comment on above: Result Comment: Canc elled via OM: Order cancelled - Patient discharged Performed By: #### L 500.2500 ####[facility] [address] [place], [address] BUN/CRE Normal 10-20 [facility] Comment on above: Result Comment: Canc elled via OM: Order cancelled - Patient discharged Performed By: #### L 500.2500 ####[facility] [address] [place], [address] CA,Total Normal 8.5-10.1 [facility] Comment on above: Result Comment: Canc elled via OM: Order cancelled - Patient discharged Performed By: #### L 500.2500 ####[facility] [address] [facility] [address] CL Normal 98-107 [facility] Comment on above: Result Comment: Canc elled via OM: Order cancelled - Patient discharged Performed By: #### L 500.2500 ####[facility] [address] [place], [address] CO2 Normal 21.0-32.0 [facility] Comment on above: Result Comment: Canc elled via OM: Order cancelled - Patient discharged Performed By: #### L 500.2500 ####[facility] [address] [facility] [address] CREAT,SERUM Normal 0.55-1.02 [facility] Comment on above: Result Comment: Canc elled via OM: Order cancelled - Patient discharged Performed By: #### L 500.2500 ####[facility] [address] [place], [address] EST GFR Normal >60 [facility] Comment on above: Result Comment: Canc elled via OM: Order cancelled - Patient discharged Performed By: #### L 500.2500 ####[facility] [address] [place], [address] EST GFR - AA Normal >60 [facility] Comment on above: Result Comment: Canc elled via OM: Order cancelled - Patient discharged Performed By: #### L 500.2500 ####[facility] [address] [place], [address] GAP Normal 5-15 [facility] Comment on above: Result Comment: Canc elled via OM: Order cancelled - Patient discharged Performed By: #### L 500.2500 ####[facility] [address] [place], [address] GLU Normal 74-106 [facility] Comment on above: Result Comment: Canc elled via OM: Order cancelled - Patient discharged Performed By: #### L 500.2500 ####[facility] [address] [place], [address] Potassium Normal 3.5-5.1 [facility] Comment on above: Result Comment: Canc elled via OM: Order cancelled - Patient discharged Performed By: #### L 500.2500 ####[facility] [address] [place], [address] Basic Metabolic Profile (BMP) Normal 136-145 [facility] Comment on above: Result Comment: Canc elled via OM: Order cancelled - Patient discharged Performed By: #### L 500.2500 ####[facility] [address] [place], [address] Prothrombin Time w/INRon INR Normal [facility] Comment on above: Result Comment: Canc elled via OM: Order cancelled - Patient discharged Performed By: #### L 300.3900 ####[facility] [address] [place], [address] PROTIME Normal 11.7-14.9 [facility] Comment on above: Result Comment: Canc elled via OM: Order cancelled - Patient discharged Performed By: #### L 300.3900 ####[facility] [address] [place], [address] Basic Metabolic Profile (BMP )on 09-19-2024 BUN Normal 7-18 [facility] Comment on above: Result Comment: Canc elled via OM: Order cancelled - Patient discharged Performed By: #### L 500.2500 ####[facility] [address] [place], [address] BUN/CRE Normal 10-20 [facility] Comment on above: Result Comment: Canc elled via OM: Order cancelled - Patient discharged Performed By: #### L 500.2500 ####[facility] [address] [place], [address] CA,Total Normal 8.5-10.1 [facility] Comment on above: Result Comment: Canc elled via OM: Order cancelled - Patient discharged Performed By: #### L 500.2500 ####[facility] [address] [place], [address] CL Normal 98-107 [facility] Comment on above: Result Comment: Canc elled via OM: Order cancelled - Patient discharged Performed By: #### L 500.2500 ####[facility] [address] [place], [address] CO2 Normal 21.0-32.0 [facility] Comment on above: Result Comment: Canc elled via OM: Order cancelled - Patient discharged Performed By: #### L 500.2500 ####[facility] [address] [place], [address] CREAT,SERUM Normal 0.55-1.02 [facility] Comment on above: Result Comment: Canc elled via OM: Order cancelled - Patient discharged Performed By: #### L 500.2500 ####[facility] [address] [place], [address] EST GFR Normal >60 [facility] Comment on above: Result Comment: Canc elled via OM: Order cancelled - Patient discharged Performed By: #### L 500.2500 ####[facility] [address] [place], [address] EST GFR - AA Normal >60 [facility] Comment on above: Result Comment: Canc elled via OM: Order cancelled - Patient discharged Performed By: #### L 500.2500 ####[facility] [address] [place], [address] GAP Normal 5-15 [facility] Comment on above: Result Comment: Canc elled via OM: Order cancelled - Patient discharged Performed By: #### L 500.2500 ####[facility] [address] [place], [address] GLU Normal 74-106 [facility] Comment on above: Result Comment: Canc elled via OM: Order cancelled - Patient discharged Performed By: #### L 500.2500 ####[facility] [address] [place], [address] Potassium Normal 3.5-5.1 [facility] Comment on above: Result Comment: Canc elled via OM: Order cancelled - Patient discharged Performed By: #### L 500.2500 ####[facility] [address] [place], [address] Basic Metabolic Profile (BMP) Normal 136-145 [facility] Comment on above: Result Comment: Canc elled via OM: Order cancelled - Patient discharged Performed By: #### L 500.2500 ####[facility] [address] [place], [address] Prothrombin Time w/INRon INR Normal [facility] Comment on above: Result Comment: Canc elled via OM: Order cancelled - Patient discharged Performed By: #### L 300.3900 ####[facility] [address] [place], [address] PROTIME Normal 11.7-14.9 [facility] Comment on above: Result Comment: Canc elled via OM: Order cancelled - Patient discharged Performed By: #### L 300.3900 ####[facility] [address] [place], [address] Basic Metabolic Profile (BMP )on 09-18-2024 BUN Normal 7-18 [facility] Comment on above: Result Comment: Canc elled via OM: Order cancelled - Patient discharged Performed By: #### L 500.2500 ####[facility] [address] [place], [address] BUN/CRE Normal 10-20 [facility] Comment on above: Result Comment: Canc elled via OM: Order cancelled - Patient discharged Performed By: #### L 500.2500 ####[facility] [address] [place], [address] CA,Total Normal 8.5-10.1 [facility] Comment on above: Result Comment: Canc elled via OM: Order cancelled - Patient discharged Performed By: #### L 500.2500 ####[facility] [address] [place], [address] CL Normal 98-107 [facility] Comment on above: Result Comment: Canc elled via OM: Order cancelled - Patient discharged Performed By: #### L 500.2500 ####[facility] [address] [place], [address] CO2 Normal 21.0-32.0 [facility] Comment on above: Result Comment: Canc elled via OM: Order cancelled - Patient discharged Performed By: #### L 500.2500 ####[facility] [address] [place], [address] CREAT,SERUM Normal 0.55-1.02 [facility] Comment on above: Result Comment: Canc elled via OM: Order cancelled - Patient discharged Performed By: #### L 500.2500 ####[facility] [address] [place], [address] EST GFR Normal >60 [facility] Comment on above: Result Comment: Canc elled via OM: Order cancelled - Patient discharged Performed By: #### L 500.2500 ####[facility] [address] [place], [address] EST GFR - AA Normal >60 [facility] Comment on above: Result Comment: Canc elled via OM: Order cancelled - Patient discharged Performed By: #### L 500.2500 ####[facility] [address] [place], [address] GAP Normal 5-15 [facility] Comment on above: Result Comment: Canc elled via OM: Order cancelled - Patient discharged Performed By: #### L 500.2500 ####[facility] [address] [place], [address] GLU Normal 74-106 [facility] Comment on above: Result Comment: Canc elled via OM: Order cancelled - Patient discharged Performed By: #### L 500.2500 ####[facility] [address] [place], [address] Potassium Normal 3.5-5.1 [facility] Comment on above: Result Comment: Canc elled via OM: Order cancelled - Patient discharged Performed By: #### L 500.2500 ####[facility] [address] [place], [address] Basic Metabolic Profile (BMP) Normal 136-145 [facility] Comment on above: Result Comment: Canc elled via OM: Order cancelled - Patient discharged Performed By: #### L 500.2500 ####[facility] [address] [place], [address] Prothrombin Time w/INRon INR Normal [facility] Comment on above: Result Comment: Canc elled via OM: Order cancelled - Patient discharged Performed By: #### L 300.3900 ####[facility] [address] [place], [address] PROTIME Normal 11.7-14.9 [facility] Comment on above: Result Comment: Canc elled via OM: Order cancelled - Patient discharged Performed By: #### L 300.3900 ####[facility] [address] [place], [address] Basic Metabolic Profile (BMP )on 09-17-2024 BUN/CRE 11.9 RATIO Normal 10-20 [facility] Comment on above: Performed By: #### L 100.0100, L500.3400, L500.2500 ####[facility] [address] [place], [address] CA,Total 8.7 mg/dL Normal 8.5-10.1 [facility] Comment on above: Performed By: #### L 100.0100, L500.3400, L500.2500 ####[facility] [address] [place], [address] Chloride [Moles/Vol] 111 mmol/L High 98-107 [facility] Comment on above: Performed By: #### L 100.0100, L500.3400, L500.2500 ####[facility] [address] [place], [address] CO2 [Moles/Vol] 23.0 mmol/L Normal 21.0-32.0 [facility] Comment on above: Performed By: #### L 100.0100, L500.3400, L500.2500 ####[facility] [address] [place], [address] Creatinine [Mass/Vol] 0.92 mg/dL Normal 0.55-1.02 [facility] Comment on above: Result Comment: The validity of the calculated GFR GFRAA in patients over70 years has not been determined. Clinical correlation isessential. Performed By: #### L 100.0100, L500.3400, L500.2500 ####[facility] [address] [place], [address] ECRCL 47.01 ml/min Normal [facility] Comment on above: Performed By: #### L 100.0100, L500.3400, L500.2500 ####[facility] [address] [place], [address] EST GFR - AA 77 mL/min Normal >60 [facility] Comment on above: Result Comment: Afri can Polish GFR Calc Performed By: #### L 100.0100, L500.3400, L500.2500 ####[facility] [address] [place], [address] GAP 5 Normal 5-15 [facility] Comment on above: Performed By: #### L 100.0100, L500.3400, L500.2500 ####[facility] [address] [place], [address] GFR/1.73 sq M.predicted among non-blacks MDRD (S/P/Bld) [Vol rate/Area] 63 mL/min/{1.73_m2} Normal >60 [facility] Comment on above: Result Comment: Non- GFR Calc Performed By: #### L 100.0100, L500.3400, L500.2500 ####[facility] [address] [place], [address] Glucose [Mass/Vol] 112 mg/dL High 74-106 [facility] Comment on above: Result Comment: Fast ing Glucose result from 100 to 125 mg/dLsuggests IMPAIRED HOMEOSTASIS per A.D.A. criteria. Performed By: #### L 100.0100, L500.3400, L500.2500 ####[facility] [address] [place], [address] Potassium [Moles/Vol] 3.6 mmol/L Normal 3.5-5.1 [facility] Comment on above: Performed By: #### L 100.0100, L500.3400, L500.2500 ####[facility] [address] [place], [address] Sodium [Moles/Vol] 139 mmol/L Normal 136-145 [facility] Comment on above: Performed By: #### L 100.0100, L500.3400, L500.2500 ####[facility] [address] [place], [address] Urea nitrogen [Mass/Vol] 11 mg/dL Normal 7-18 [facility] Comment on above: Performed By: #### L 100.0100, L500.3400, L500.2500 ####[facility] [address] [place], [address] CBC W/Diff, Automatedon 01-0 -2024 Absolute Lymph 2.48 X10 3/uL Normal 0.83-4.51 [facility] Comment on above: Performed By: #### L 100.0100, L500.3400, L500.2500 ####[facility] [address] [place], [address] Absolute Neut 4.7 X10 3/uL Normal 2.0-7.7 [facility] Comment on above: Performed By: #### L 100.0100, L500.3400, L500.2500 ####[facility] [address] [place], [address] Basophils/100 WBC (Bld) 0.7 % Normal 0-1 [facility] Comment on above: Performed By: #### L 100.0100, L500.3400, L500.2500 ####[facility] [address] [place], [address] Eosinophils/100 WBC (Bld) 3.6 % Normal 0-5 [facility] Comment on above: Performed By: #### L 100.0100, L500.3400, L500.2500 ####[facility] [address] [place], [address] Erythrocyte distribution width (RBC) [Ratio] 13.2 % Normal 11.6-14.6 [facility] Comment on above: Performed By: #### L 100.0100, L500.3400, L500.2500 ####[facility] [address] [place], [address] Hematocrit (Bld) [Volume fraction] 30.4 % Low 37-47 [facility] Comment on above: Performed By: #### L 100.0100, L500.3400, L500.2500 ####[facility] [address] [place], [address] Hemoglobin (Bld) [Mass/Vol] 9.9 g/dL Low 12.0-15.0 [facility] Comment on above: Performed By: #### L 100.0100, L500.3400, L500.2500 ####[facility] [address] [place], [address] IG% 0.400 Normal 0.0-0.9 [facility] Comment on above: Result Comment: IG% - Immature Granulocytes (promyelocytes, myelocytes andmetamyelocytes) > 1% indicates that a LEFT SHIFT is Present. Performed By: #### L 100.0100, L500.3400, L500.2500 ####[facility] [address] [place], [address] Lymphocytes/100 WBC (Bld) 29.8 % Normal 19-41 [facility] Comment on above: Performed By: #### L 100.0100, L500.3400, L500.2500 ####[facility] [address] [place], [address] MCH (RBC) [Entitic mass] 29.6 pg Normal 27.0-32.0 [facility] Comment on above: Performed By: #### L 100.0100, L500.3400, L500.2500 ####[facility] [address] [place], [address] MCHC (RBC) [Mass/Vol] 32.6 g/dL Normal 32-36 [facility] Comment on above: Performed By: #### L 100.0100, L500.3400, L500.2500 ####[facility] [address] [place], [address] MCV (RBC) [Entitic vol] 90.7 fL Normal 81-99 [facility] Comment on above: Performed By: #### L 100.0100, L500.3400, L500.2500 ####[facility] [address] [place], [address] Monocytes/100 WBC (Bld) 9.5 % Normal 0-10 [facility] Comment on above: Performed By: #### L 100.0100, L500.3400, L500.2500 ####[facility] [address] [place], [address] Neutrophils/100 WBC (Bld) 56.0 % Normal 47-70 [facility] Comment on above: Performed By: #### L 100.0100, L500.3400, L500.2500 ####[facility] [address] [place], [address] Nucleated RBC (Bld) [#/Vol] 0 10*3/uL Normal 0-5 [facility] Comment on above: Performed By: #### L 100.0100, L500.3400, L500.2500 ####[facility] [address] [place], [address] Platelet mean volume (Bld) [Entitic vol] 9.6 fL Normal 6.2-12.0 [facility] Comment on above: Performed By: #### L 100.0100, L500.3400, L500.2500 ####[facility] [address] [place], [address] Platelets (Bld) [#/Vol] 372 10*3/uL Normal 150-450 [facility] Comment on above: Performed By: #### L 100.0100, L500.3400, L500.2500 ####[facility] [address] [place], [address] RBC (Bld) [#/Vol] 3.35 10*6/uL Low 4.2-5.4 [facility] Comment on above: Performed By: #### L 100.0100, L500.3400, L500.2500 ####[facility] [address] [place], [address] RDW SD 43.8 fl Normal 35.1-43.9 [facility] Comment on above: Performed By: #### L 100.0100, L500.3400, L500.2500 ####[facility] [address] [place], [address] WBC (Bld) [#/Vol] 8.3 10*3/uL Normal 4.4-11.0 [facility] Comment on above: Performed By: #### L 100.0100, L500.3400, L500.2500 ####[facility] [address] [place], [address] Liver Profileon 09-17-2024 Albumin [Mass/Vol] 3.0 g/dL Low 3.2-5.0 [facility] Comment on above: Performed By: #### L 100.0100, L500.3400, L500.2500 ####[facility] [address] [place], [address] ALK P 119 U/L High 45-117 [facility] Comment on above: Performed By: #### L 100.0100, L500.3400, L500.2500 ####[facility] [address] [place], [address] ALT [Catalytic activity/Vol] 71 U/L High 13-56 [facility] Comment on above: Performed By: #### L 100.0100, L500.3400, L500.2500 ####[facility] [address] [place], [address] AST [Catalytic activity/Vol] 54 U/L High 15-37 [facility] Comment on above: Performed By: #### L 100.0100, L500.3400, L500.2500 ####[facility] [address] [place], [address] Bilirubin [Mass/Vol] 0.50 mg/dL Normal 0.20-1.00 [facility] Comment on above: Result Comment: For patients on eltrombopag therapy, use of Dimension [place] TBIL is not recommended. Performed By: #### L 100.0100, L500.3400, L500.2500 ####[facility] [address] [place], [address] Bilirubin.direct [Mass/Vol] 0.13 mg/dL Normal 0.00-0.30 [facility] Comment on above: Performed By: #### L 100.0100, L500.3400, L500.2500 ####[facility] [address] [place], [address] Globulin (S) [Mass/Vol] 3.4 g/dL Normal 2.2-4.2 [facility] Comment on above: Performed By: #### L 100.0100, L500.3400, L500.2500 ####[facility] [address] [place], [address] T PROT 6.4 g/dL Normal 6.4-8.2 [facility] Comment on above: Performed By: #### L 100.0100, L500.3400, L500.2500 ####[facility] [address] [place], [address] Prothrombin Time w/INRon INR Coag (PPP) [Relative time] 1.1 {INR} Normal [facility] Comment on above: Performed By: #### L 300.3900 ####[facility] [address] [place], [address] PT Coag (PPP) [Time] 14.8 s Normal 11.7-14.9 [facility] Comment on above: Performed By: #### L 300.3900 ####[facility] [address] [place], [address] Basic Metabolic Profile (BMP )on 09-16-2024 BUN/CRE 14.9 RATIO Normal 10-20 [facility] Comment on above: Performed By: #### L 500.2500, L500.3400, L100.0100 ####[facility] [address] [place], [address] CA,Total 8.5 mg/dL Normal 8.5-10.1 [facility] Comment on above: Performed By: #### L 500.2500, L500.3400, L100.0100 ####[facility] [address] [place], [address] Chloride [Moles/Vol] 108 mmol/L High 98-107 [facility] Comment on above: Performed By: #### L 500.2500, L500.3400, L100.0100 ####[facility] [address] [place], [address] CO2 [Moles/Vol] 23.0 mmol/L Normal 21.0-32.0 [facility] Comment on above: Performed By: #### L 500.2500, L500.3400, L100.0100 ####[facility] [address] [place], [address] Creatinine [Mass/Vol] 0.94 mg/dL Normal 0.55-1.02 [facility] Comment on above: Result Comment: The validity of the calculated GFR GFRAA in patients over70 years has not been determined. Clinical correlation isessential. Performed By: #### L 500.2500, L500.3400, L100.0100 ####[facility] [address] [place], [address] ECRCL 46.01 ml/min Normal [facility] Comment on above: Performed By: #### L 500.2500, L500.3400, L100.0100 ####[facility] [address] [place], [address] EST GFR - AA 75 mL/min Normal >60 [facility] Comment on above: Result Comment: Afri can Polish GFR Calc Performed By: #### L 500.2500, L500.3400, L100.0100 ####[facility] [address] [place], [address] GAP 6 Normal 5-15 [facility] Comment on above: Performed By: #### L 500.2500, L500.3400, L100.0100 ####[facility] [address] [place], [address] GFR/1.73 sq M.predicted among non-blacks MDRD (S/P/Bld) [Vol rate/Area] 62 mL/min/{1.73_m2} Normal >60 [facility] Comment on above: Result Comment: Non- GFR Calc Performed By: #### L 500.2500, L500.3400, L100.0100 ####[facility] [address] [place], [address] Glucose [Mass/Vol] 103 mg/dL Normal 74-106 [facility] Comment on above: Result Comment: Fast ing Glucose result from 100 to 125 mg/dLsuggests IMPAIRED HOMEOSTASIS per A.D.A. criteria. Performed By: #### L 500.2500, L500.3400, L100.0100 ####[facility] [address] [place], [address] Potassium [Moles/Vol] 3.8 mmol/L Normal 3.5-5.1 [facility] Comment on above: Performed By: #### L 500.2500, L500.3400, L100.0100 ####[facility] [address] [place], [address] Sodium [Moles/Vol] 138 mmol/L Normal 136-145 [facility] Comment on above: Performed By: #### L 500.2500, L500.3400, L100.0100 ####[facility] [address] [place], [address] Urea nitrogen [Mass/Vol] 14 mg/dL Normal 7-18 [facility] Comment on above: Performed By: #### L 500.2500, L500.3400, L100.0100 ####[facility] [address] [place], [address] CBC W/Diff, Automatedon 12-3 Absolute Lymph 2.92 X10 3/uL Normal 0.83-4.51 [facility] Comment on above: Performed By: #### L 500.2500, L500.3400, L100.0100 ####[facility] [address] [place], [address] Absolute Neut 4.6 X10 3/uL Normal 2.0-7.7 [facility] Comment on above: Performed By: #### L 500.2500, L500.3400, L100.0100 ####[facility] [address] [place], [address] Basophils/100 WBC (Bld) 0.9 % Normal 0-1 [facility] Comment on above: Performed By: #### L 500.2500, L500.3400, L100.0100 ####[facility] [address] [place], [address] Eosinophils/100 WBC (Bld) 2.8 % Normal 0-5 [facility] Comment on above: Performed By: #### L 500.2500, L500.3400, L100.0100 ####[facility] [address] [place], [address] Erythrocyte distribution width (RBC) [Ratio] 13.2 % Normal 11.6-14.6 [facility] Comment on above: Performed By: #### L 500.2500, L500.3400, L100.0100 ####[facility] [address] [place], [address] Hematocrit (Bld) [Volume fraction] 30.8 % Low 37-47 [facility] Comment on above: Performed By: #### L 500.2500, L500.3400, L100.0100 ####[facility] [address] [place], [address] Hemoglobin (Bld) [Mass/Vol] 10.1 g/dL Low 12.0-15.0 [facility] Comment on above: Performed By: #### L 500.2500, L500.3400, L100.0100 ####[facility] [address] [place], [address] IG% 0.500 Normal 0.0-0.9 [facility] Comment on above: Result Comment: IG% - Immature Granulocytes (promyelocytes, myelocytes andmetamyelocytes) > 1% indicates that a LEFT SHIFT is Present. Performed By: #### L 500.2500, L500.3400, L100.0100 ####[facility] [address] [place], [address] Lymphocytes/100 WBC (Bld) 33.8 % Normal 19-41 [facility] Comment on above: Performed By: #### L 500.2500, L500.3400, L100.0100 ####[facility] [address] [place], [address] MCH (RBC) [Entitic mass] 30.3 pg Normal 27.0-32.0 [facility] Comment on above: Performed By: #### L 500.2500, L500.3400, L100.0100 ####[facility] [address] [place], [address] MCHC (RBC) [Mass/Vol] 32.8 g/dL Normal 32-36 [facility] Comment on above: Performed By: #### L 500.2500, L500.3400, L100.0100 ####[facility] [address] [place], [address] MCV (RBC) [Entitic vol] 92.5 fL Normal 81-99 [facility] Comment on above: Performed By: #### L 500.2500, L500.3400, L100.0100 ####[facility] [address] [place], [address] Monocytes/100 WBC (Bld) 9.5 % Normal 0-10 [facility] Comment on above: Performed By: #### L 500.2500, L500.3400, L100.0100 ####[facility] [address] [place], [address] Neutrophils/100 WBC (Bld) 52.5 % Normal 47-70 [facility] Comment on above: Performed By: #### L 500.2500, L500.3400, L100.0100 ####[facility] [address] [place], [address] Nucleated RBC (Bld) [#/Vol] 0 10*3/uL Normal 0-5 [facility] Comment on above: Performed By: #### L 500.2500, L500.3400, L100.0100 ####[facility] [address] [place], [address] Platelet mean volume (Bld) [Entitic vol] 9.8 fL Normal 6.2-12.0 [facility] Comment on above: Performed By: #### L 500.2500, L500.3400, L100.0100 ####[facility] [address] [place], [address] Platelets (Bld) [#/Vol] 382 10*3/uL Normal 150-450 [facility] Comment on above: Performed By: #### L 500.2500, L500.3400, L100.0100 ####[facility] [address] [place], [address] RBC (Bld) [#/Vol] 3.33 10*6/uL Low 4.2-5.4 [facility] Comment on above: Performed By: #### L 500.2500, L500.3400, L100.0100 ####[facility] [address] [place], [address] RDW SD 44.8 fl High 35.1-43.9 [facility] Comment on above: Performed By: #### L 500.2500, L500.3400, L100.0100 ####[facility] [address] [place], [address] WBC (Bld) [#/Vol] 8.7 10*3/uL Normal 4.4-11.0 [facility] Comment on above: Performed By: #### L 500.2500, L500.3400, L100.0100 ####[facility] [address] [place], [address] L501.5101on 09-16-2024 GGTP 89 IU/L Abnormal 0-60 [facility] Comment on above: Order Comment: ICU C ALLED AND INFORMED US THAT THIS PT IS OUR DRAW RAN OZZY MELLO. Result Comment: Perf ormed at: - [facility] [id number] [place], [place] [id number] Director: Chip Bray PhD, Phone: [phone] Performed By: #### L 501.5101 ####[facility] [address] [place], [address] Liver Profileon 09-16-2024 Albumin [Mass/Vol] 2.9 g/dL Low 3.2-5.0 [facility] Comment on above: Performed By: #### L 500.2500, L500.3400, L100.0100 ####[facility] [address] [place], [address] ALK P 124 U/L High 45-117 [facility] Comment on above: Performed By: #### L 500.2500, L500.3400, L100.0100 ####[facility] [address] [place], [address] ALT [Catalytic activity/Vol] 92 U/L High 13-56 [facility] Comment on above: Performed By: #### L 500.2500, L500.3400, L100.0100 ####[facility] [address] [place], [address] AST [Catalytic activity/Vol] 79 U/L High 15-37 [facility] Comment on above: Performed By: #### L 500.2500, L500.3400, L100.0100 ####[facility] [address] [place], [address] Bilirubin [Mass/Vol] 0.70 mg/dL Normal 0.20-1.00 [facility] Comment on above: Result Comment: For patients on eltrombopag therapy, use of Dimension [place] TBIL is not recommended. Performed By: #### L 500.2500, L500.3400, L100.0100 ####[facility] [address] [place], [address] Bilirubin.direct [Mass/Vol] 0.14 mg/dL Normal 0.00-0.30 [facility] Comment on above: Performed By: #### L 500.2500, L500.3400, L100.0100 ####[facility] [address] [place], [address] Globulin (S) [Mass/Vol] 3.5 g/dL Normal 2.2-4.2 [facility] Comment on above: Performed By: #### L 500.2500, L500.3400, L100.0100 ####[facility] [address] [place], [address] T PROT 6.4 g/dL Normal 6.4-8.2 [facility] Comment on above: Performed By: #### L 500.2500, L500.3400, L100.0100 ####[facility] [address] [place], [address] Prothrombin Time w/INRon INR Coag (PPP) [Relative time] 1.2 {INR} Normal [facility] Comment on above: Performed By: #### L 300.3900 ####[facility] [address] [place], [address] PT Coag (PPP) [Time] 15.4 s High 11.7-14.9 [facility] Comment on above: Performed By: #### L 300.3900 ####[facility] [address] [place], [address] Basic Metabolic Profile (BMP )on 09-15-2024 BUN/CRE 15.7 RATIO Normal 10-20 [facility] Comment on above: Performed By: #### L 100.0100, L500.2500, L500.3400 ####[facility] [address] [place], [address] CA,Total 8.7 mg/dL Normal 8.5-10.1 [facility] Comment on above: Performed By: #### L 100.0100, L500.2500, L500.3400 ####[facility] [address] [place], [address] Chloride [Moles/Vol] 114 mmol/L High 98-107 [facility] Comment on above: Performed By: #### L 100.0100, L500.2500, L500.3400 ####[facility] [address] [place], [address] CO2 [Moles/Vol] 23.0 mmol/L Normal 21.0-32.0 [facility] Comment on above: Performed By: #### L 100.0100, L500.2500, L500.3400 ####[facility] [address] [place], [address] Creatinine [Mass/Vol] 0.96 mg/dL Normal 0.55-1.02 [facility] Comment on above: Result Comment: The validity of the calculated GFR GFRAA in patients over70 years has not been determined. Clinical correlation isessential. Performed By: #### L 100.0100, L500.2500, L500.3400 ####[facility] [address] [place], [address] ECRCL 45.07 ml/min Normal [facility] Comment on above: Performed By: #### L 100.0100, L500.2500, L500.3400 ####[facility] [address] [place], [address] EST GFR - AA 74 mL/min Normal >60 [facility] Comment on above: Result Comment: Afri can Polish GFR Calc Performed By: #### L 100.0100, L500.2500, L500.3400 ####[facility] [address] [place], [address] GAP 3 Low 5-15 [facility] Comment on above: Performed By: #### L 100.0100, L500.2500, L500.3400 ####[facility] [address] [place], [address] GFR/1.73 sq M.predicted among non-blacks MDRD (S/P/Bld) [Vol rate/Area] 61 mL/min/{1.73_m2} Normal >60 [facility] Comment on above: Result Comment: Non- GFR Calc Performed By: #### L 100.0100, L500.2500, L500.3400 ####[facility] [address] [place], [address] Glucose [Mass/Vol] 112 mg/dL High 74-106 [facility] Comment on above: Result Comment: Fast ing Glucose result from 100 to 125 mg/dLsuggests IMPAIRED HOMEOSTASIS per A.D.A. criteria. Performed By: #### L 100.0100, L500.2500, L500.3400 ####[facility] [address] [place], [address] Potassium [Moles/Vol] 4.0 mmol/L Normal 3.5-5.1 [facility] Comment on above: Performed By: #### L 100.0100, L500.2500, L500.3400 ####[facility] [address] [place], [address] Sodium [Moles/Vol] 140 mmol/L Normal 136-145 [facility] Comment on above: Performed By: #### L 100.0100, L500.2500, L500.3400 ####[facility] [address] [place], [address] Urea nitrogen [Mass/Vol] 15 mg/dL Normal 7-18 [facility] Comment on above: Performed By: #### L 100.0100, L500.2500, L500.3400 ####[facility] [address] [place], [address] CBC W/Diff, Automatedon 12-3 0-2024 Absolute Lymph 2.24 X10 3/uL Normal 0.83-4.51 [facility] Comment on above: Performed By: #### L 100.0100, L500.2500, L500.3400 ####[facility] [address] [place], [address] Absolute Neut 6.9 X10 3/uL Normal 2.0-7.7 [facility] Comment on above: Performed By: #### L 100.0100, L500.2500, L500.3400 ####[facility] [address] [place], [address] Basophils/100 WBC (Bld) 0.3 % Normal 0-1 [facility] Comment on above: Performed By: #### L 100.0100, L500.2500, L500.3400 ####[facility] [address] [place], [address] Eosinophils/100 WBC (Bld) 0.2 % Normal 0-5 [facility] Comment on above: Performed By: #### L 100.0100, L500.2500, L500.3400 ####[facility] [address] [place], [address] Erythrocyte distribution width (RBC) [Ratio] 13.2 % Normal 11.6-14.6 [facility] Comment on above: Performed By: #### L 100.0100, L500.2500, L500.3400 ####[facility] [address] [place], [address] Hematocrit (Bld) [Volume fraction] 30.6 % Low 37-47 [facility] Comment on above: Performed By: #### L 100.0100, L500.2500, L500.3400 ####[facility] [address] [place], [address] Hemoglobin (Bld) [Mass/Vol] 9.7 g/dL Low 12.0-15.0 [facility] Comment on above: Performed By: #### L 100.0100, L500.2500, L500.3400 ####[facility] [address] [place], [address] IG% 0.600 Normal 0.0-0.9 [facility] Comment on above: Result Comment: IG% - Immature Granulocytes (promyelocytes, myelocytes andmetamyelocytes) > 1% indicates that a LEFT SHIFT is Present. Performed By: #### L 100.0100, L500.2500, L500.3400 ####[facility] [address] [place], [address] Lymphocytes/100 WBC (Bld) 22.1 % Normal 19-41 [facility] Comment on above: Performed By: #### L 100.0100, L500.2500, L500.3400 ####[facility] [address] [place], [address] MCH (RBC) [Entitic mass] 29.0 pg Normal 27.0-32.0 [facility] Comment on above: Performed By: #### L 100.0100, L500.2500, L500.3400 ####[facility] [address] [place], [address] MCHC (RBC) [Mass/Vol] 31.7 g/dL Low 32-36 [facility] Comment on above: Performed By: #### L 100.0100, L500.2500, L500.3400 ####[facility] [address] [place], [address] MCV (RBC) [Entitic vol] 91.3 fL Normal 81-99 [facility] Comment on above: Performed By: #### L 100.0100, L500.2500, L500.3400 ####[facility] [address] [place], [address] Monocytes/100 WBC (Bld) 8.9 % Normal 0-10 [facility] Comment on above: Performed By: #### L 100.0100, L500.2500, L500.3400 ####[facility] [address] [place], [address] Neutrophils/100 WBC (Bld) 67.9 % Normal 47-70 [facility] Comment on above: Performed By: #### L 100.0100, L500.2500, L500.3400 ####[facility] [address] [place], [address] Nucleated RBC (Bld) [#/Vol] 0 10*3/uL Normal 0-5 [facility] Comment on above: Performed By: #### L 100.0100, L500.2500, L500.3400 ####[facility] [address] [place], [address] Platelet mean volume (Bld) [Entitic vol] 9.1 fL Normal 6.2-12.0 [facility] Comment on above: Performed By: #### L 100.0100, L500.2500, L500.3400 ####[facility] [address] [place], [address] Platelets (Bld) [#/Vol] 370 10*3/uL Normal 150-450 [facility] Comment on above: Performed By: #### L 100.0100, L500.2500, L500.3400 ####[facility] [address] [place], [address] RBC (Bld) [#/Vol] 3.35 10*6/uL Low 4.2-5.4 [facility] Comment on above: Performed By: #### L 100.0100, L500.2500, L500.3400 ####[facility] [address] [place], [address] RDW SD 43.8 fl Normal 35.1-43.9 [facility] Comment on above: Performed By: #### L 100.0100, L500.2500, L500.3400 ####[facility] [address] [place], [address] WBC (Bld) [#/Vol] 10.1 10*3/uL Normal 4.4-11.0 [facility] Comment on above: Performed By: #### L 100.0100, L500.2500, L500.3400 ####[facility] [address] [place], [address] Liver Profileon 09-15-2024 Albumin [Mass/Vol] 2.9 g/dL Low 3.2-5.0 [facility] Comment on above: Performed By: #### L 100.0100, L500.2500, L500.3400 ####[facility] [address] [place], [address] ALK P 136 U/L High 45-117 [facility] Comment on above: Performed By: #### L 100.0100, L500.2500, L500.3400 ####[facility] [address] [place], [address] ALT [Catalytic activity/Vol] 129 U/L High 13-56 [facility] Comment on above: Performed By: #### L 100.0100, L500.2500, L500.3400 ####[facility] [address] [place], [address] AST [Catalytic activity/Vol] 145 U/L High 15-37 [facility] Comment on above: Performed By: #### L 100.0100, L500.2500, L500.3400 ####[facility] [address] [place], [address] Bilirubin [Mass/Vol] 0.60 mg/dL Normal 0.20-1.00 [facility] Comment on above: Result Comment: For patients on eltrombopag therapy, use of Dimension [place] TBIL is not recommended. Performed By: #### L 100.0100, L500.2500, L500.3400 ####[facility] [address] [place], [address] Bilirubin.direct [Mass/Vol] 0.17 mg/dL Normal 0.00-0.30 [facility] Comment on above: Performed By: #### L 100.0100, L500.2500, L500.3400 ####[facility] [address] [place], [address] Globulin (S) [Mass/Vol] 3.5 g/dL Normal 2.2-4.2 [facility] Comment on above: Performed By: #### L 100.0100, L500.2500, L500.3400 ####[facility] [address] [place], [address] T PROT 6.4 g/dL Normal 6.4-8.2 [facility] Comment on above: Performed By: #### L 100.0100, L500.2500, L500.3400 ####[facility] [address] [place], [address] MR/CON.PCM.GIon 09-15-2024 MR/CON.PCM.GI Normal [facility] MRCP Abdomen without Contras ton 09-15-2024 MRCP Abdomen without Contrast Normal [facility] Prothrombin Time w/INRon INR Coag (PPP) [Relative time] 1.1 {INR} Normal [facility] Comment on above: Performed By: #### L 300.3900 ####[facility] [address] [place], [address] PT Coag (PPP) [Time] 14.3 s Normal 11.7-14.9 [facility] Comment on above: Performed By: #### L 300.3900 ####[facility] [address] [place], [address] CBC W/Diff, Automatedon 08-18 Absolute Lymph 3.53 X10 3/uL Normal 0.83-4.51 [facility] Comment on above: Performed By: #### L 100.0100, L500.4050, L501.2300, L501.5200 ####[facility] [address] [place], [address] Absolute Neut 9.3 X10 3/uL High 2.0-7.7 [facility] Comment on above: Performed By: #### L 100.0100, L500.4050, L501.2300, L501.5200 ####[facility] [address] [place], [address] Basophils/100 WBC (Bld) 0.5 % Normal 0-1 [facility] Comment on above: Performed By: #### L 100.0100, L500.4050, L501.2300, L501.5200 ####[facility] [address] [place], [address] Eosinophils/100 WBC (Bld) 3.0 % Normal 0-5 [facility] Comment on above: Performed By: #### L 100.0100, L500.4050, L501.2300, L501.5200 ####[facility] [address] [place], [address] Erythrocyte distribution width (RBC) [Ratio] 13.2 % Normal 11.6-14.6 [facility] Comment on above: Performed By: #### L 100.0100, L500.4050, L501.2300, L501.5200 ####[facility] [address] [place], [address] Hematocrit (Bld) [Volume fraction] 35.1 % Low 37-47 [facility] Comment on above: Performed By: #### L 100.0100, L500.4050, L501.2300, L501.5200 ####[facility] [address] [place], [address] Hemoglobin (Bld) [Mass/Vol] 11.1 g/dL Low 12.0-15.0 [facility] Comment on above: Performed By: #### L 100.0100, L500.4050, L501.2300, L501.5200 ####[facility] [address] [place], [address] IG% 0.700 Normal 0.0-0.9 [facility] Comment on above: Result Comment: IG% - Immature Granulocytes (promyelocytes, myelocytes andmetamyelocytes) > 1% indicates that a LEFT SHIFT is Present. Performed By: #### L 100.0100, L500.4050, L501.2300, L501.5200 ####[facility] [address] [place], [address] Lymphocytes/100 WBC (Bld) 23.8 % Normal 19-41 [facility] Comment on above: Performed By: #### L 100.0100, L500.4050, L501.2300, L501.5200 ####[facility] [address] [place], [address] MCH (RBC) [Entitic mass] 29.4 pg Normal 27.0-32.0 [facility] Comment on above: Performed By: #### L 100.0100, L500.4050, L501.2300, L501.5200 ####[facility] [address] [place], [address] MCHC (RBC) [Mass/Vol] 31.6 g/dL Low 32-36 [facility] Comment on above: Performed By: #### L 100.0100, L500.4050, L501.2300, L501.5200 ####[facility] [address] [place], [address] MCV (RBC) [Entitic vol] 93.1 fL Normal 81-99 [facility] Comment on above: Performed By: #### L 100.0100, L500.4050, L501.2300, L501.5200 ####[facility] [address] [place], [address] Monocytes/100 WBC (Bld) 9.0 % Normal 0-10 [facility] Comment on above: Performed By: #### L 100.0100, L500.4050, L501.2300, L501.5200 ####[facility] [address] [place], [address] Neutrophils/100 WBC (Bld) 63.0 % Normal 47-70 [facility] Comment on above: Performed By: #### L 100.0100, L500.4050, L501.2300, L501.5200 ####[facility] [address] [place], [address] Nucleated RBC (Bld) [#/Vol] 0 10*3/uL Normal 0-5 [facility] Comment on above: Performed By: #### L 100.0100, L500.4050, L501.2300, L501.5200 ####[facility] [address] [place], [address] Platelet mean volume (Bld) [Entitic vol] 9.3 fL Normal 6.2-12.0 [facility] Comment on above: Performed By: #### L 100.0100, L500.4050, L501.2300, L501.5200 ####[facility] [address] [place], [address] Platelets (Bld) [#/Vol] 433 10*3/uL Normal 150-450 [facility] Comment on above: Performed By: #### L 100.0100, L500.4050, L501.2300, L501.5200 ####[facility] [address] [place], [address] RBC (Bld) [#/Vol] 3.77 10*6/uL Low 4.2-5.4 [facility] Comment on above: Performed By: #### L 100.0100, L500.4050, L501.2300, L501.5200 ####[facility] [address] [place], [address] RDW SD 45.1 fl High 35.1-43.9 [facility] Comment on above: Performed By: #### L 100.0100, L500.4050, L501.2300, L501.5200 ####[facility] [address] [place], [address] WBC (Bld) [#/Vol] 14.8 10*3/uL High 4.4-11.0 [facility] Comment on above: Performed By: #### L 100.0100, L500.4050, L501.2300, L501.5200 ####[facility] [address] [place], [address] CPK Total, Creatine Kinaseon 12-29-2024 CPK TOTAL 404 U/L High 26-192 [facility] Comment on above: Performed By: #### L 501.6710, L501.3620 ####[facility] [address] [place], [address] CRPon 09-14-2024 C-REACTIVE PROT < 2.90 Normal 0.0-3.0 [facility] Comment on above: Result Comment: C-Re active Protein (CRP) provides useful information for thediagnosis, therapy and monitoring of inflammatory processesand associated diseases. For the evaluation of Relative Riskfor Cardiovascular Disease, a High Sensitivity CRP (HSCRP)should be ordered. Performed By: #### L 501.6710, L501.3620 ####[facility] [address] [place], [address] Comprehensive Metabolic Prof ilon 09-14-2024 Albumin [Mass/Vol] 3.1 g/dL Low 3.2-5.0 [facility] Comment on above: Performed By: #### L 100.0100, L500.4050, L501.2300, L501.5200 ####[facility] [address] [place], [address] Albumin/Globulin [Mass ratio] 0.8 {ratio} Low 0.9-2.4 [facility] Comment on above: Performed By: #### L 100.0100, L500.4050, L501.2300, L501.5200 ####[facility] [address] [place], [address] ALK P 138 U/L High 45-117 [facility] Comment on above: Performed By: #### L 100.0100, L500.4050, L501.2300, L501.5200 ####[facility] [address] [place], [address] ALT [Catalytic activity/Vol] 123 U/L High 13-56 [facility] Comment on above: Performed By: #### L 100.0100, L500.4050, L501.2300, L501.5200 ####[facility] [address] [place], [address] AST [Catalytic activity/Vol] 311 U/L High 15-37 [facility] Comment on above: Performed By: #### L 100.0100, L500.4050, L501.2300, L501.5200 ####[facility] [address] [place], [address] Bilirubin [Mass/Vol] 0.70 mg/dL Normal 0.20-1.00 [facility] Comment on above: Result Comment: For patients on eltrombopag therapy, use of Dimension [place] TBIL is not recommended. Performed By: #### L 100.0100, L500.4050, L501.2300, L501.5200 ####[facility] [address] [place], [address] BUN/CRE 16.3 RATIO Normal 10-20 [facility] Comment on above: Performed By: #### L 100.0100, L500.4050, L501.2300, L501.5200 ####[facility] [address] [place], [address] CA,Total 8.7 mg/dL Normal 8.5-10.1 [facility] Comment on above: Performed By: #### L 100.0100, L500.4050, L501.2300, L501.5200 ####[facility] [address] [place], [address] Chloride [Moles/Vol] 112 mmol/L High 98-107 [facility] Comment on above: Performed By: #### L 100.0100, L500.4050, L501.2300, L501.5200 ####[facility] [address] [place], [address] CO2 [Moles/Vol] 23.0 mmol/L Normal 21.0-32.0 [facility] Comment on above: Performed By: #### L 100.0100, L500.4050, L501.2300, L501.5200 ####[facility] [address] [place], [address] Creatinine [Mass/Vol] 1.04 mg/dL High 0.55-1.02 [facility] Comment on above: Result Comment: The validity of the calculated GFR GFRAA in patients over70 years has not been determined. Clinical correlation isessential. Performed By: #### L 100.0100, L500.4050, L501.2300, L501.5200 ####[facility] [address] [place], [address] ECRCL 41.34 ml/min Normal [facility] Comment on above: Performed By: #### L 100.0100, L500.4050, L501.2300, L501.5200 ####[facility] [address] [place], [address] EST GFR - AA 67 mL/min Normal >60 [facility] Comment on above: Result Comment: Afri can Polish GFR Calc Performed By: #### L 100.0100, L500.4050, L501.2300, L501.5200 ####[facility] [address] [place], [address] GAP 4 Low 5-15 [facility] Comment on above: Performed By: #### L 100.0100, L500.4050, L501.2300, L501.5200 ####[facility] [address] [place], [address] GFR/1.73 sq M.predicted among non-blacks MDRD (S/P/Bld) [Vol rate/Area] 55 mL/min/{1.73_m2} Low >60 [facility] Comment on above: Result Comment: Non- GFR Calc Performed By: #### L 100.0100, L500.4050, L501.2300, L501.5200 ####[facility] [address] [place], [address] Globulin (S) [Mass/Vol] 3.8 g/dL Normal 2.2-4.2 [facility] Comment on above: Performed By: #### L 100.0100, L500.4050, L501.2300, L501.5200 ####[facility] [address] [place], [address] Glucose [Mass/Vol] 95 mg/dL Normal 74-106 [facility] Comment on above: Performed By: #### L 100.0100, L500.4050, L501.2300, L501.5200 ####[facility] [address] [place], [address] Potassium [Moles/Vol] 4.0 mmol/L Normal 3.5-5.1 [facility] Comment on above: Performed By: #### L 100.0100, L500.4050, L501.2300, L501.5200 ####[facility] [address] [place], [address] Sodium [Moles/Vol] 138 mmol/L Normal 136-145 [facility] Comment on above: Performed By: #### L 100.0100, L500.4050, L501.2300, L501.5200 ####[facility] [address] [place], [address] T PROT 6.9 g/dL Normal 6.4-8.2 [facility] Comment on above: Performed By: #### L 100.0100, L500.4050, L501.2300, L501.5200 ####[facility] [address] [place], [address] Urea nitrogen [Mass/Vol] 17 mg/dL Normal 7-18 [facility] Comment on above: Performed By: #### L 100.0100, L500.4050, L501.2300, L501.5200 ####[facility] [address] [place], [address] Consultation - Surgicalon Consultation - Surgical Normal [facility] H AND P Exam - Hospitaliston 09-14-2024 H&P Exam - Hospitalist Normal [facility] L501.4020on 09-14-2024 TROPONIN-I HS 7 pg/mL Normal 3.0-54.0 [facility] Comment on above: Result Comment: Plea se Note: New Test Units and Gender Specific Reference Ranges. For more information see Policy Stat Procedure [place] High Sensitivity Troponin (TNIH) and attachments. Performed By: #### L 501.4020 ####[facility] [address] [place], [address] Lactic Acidon 09-14-2024 Lactate [Moles/Vol] 1.0 mmol/L Normal 0.4-1.9 [facility] Comment on above: Order Comment: Y Performed By: #### L 500.3400, L503.6005 ####[facility] [address] [place], [address] Lipaseon 09-14-2024 Lipase [Catalytic activity/Vol] 34 U/L Normal 13-75 [facility] Comment on above: Result Comment: Plea se note:LIPASE revised reference range effective 22.New Lipase methodology. Expected to produce lower valuesthan the previous assay method.NEW Reference Range: 13 - 75 U/L Performed By: #### L 501.9520, L501.2450, L500.4100 ####[facility] [address] [place], [address] Lipase [Catalytic activity/Vol] 32 U/L Normal 13-75 [facility] Comment on above: Result Comment: Michael arreola note:LIPASE revised reference range effective 22.New Lipase methodology. Expected to produce lower valuesthan the previous assay method.NEW Reference Range: 13 - 75 U/L Performed By: #### L 501.2450 ####[facility] [address] [place], [address] Lipid Profileon 09-14-2024 Cholesterol [Mass/Vol] 207 mg/dL High 200 [facility] Comment on above: Result Comment: <200 mg/dL Desirable 200-240 mg/dL Borderline >240 mg/dL High Risk Performed By: #### L 501.9520, L501.2450, L500.4100 ####[facility] [address] [place], [address] Cholesterol in HDL [Mass/Vol] 60 mg/dL Normal [facility] Comment on above: Result Comment: The drugs N-Acetylcysteine and Metamizole may falselydepress this assay. Reference Range HDL <40 mg/dL Low HDL Cholesterol HDL >or= 60 mg/dL High HDL Cholesterol Performed By: #### L 501.9520, L501.2450, L500.4100 ####[facility] [address] [place], [address] Cholesterol in LDL [Mass/Vol] 132 mg/dL High 0-130 [facility] Comment on above: Performed By: #### L 501.9520, L501.2450, L500.4100 ####[facility] [address] [place], [address] Cholesterol in VLDL [Mass/Vol] 15 mg/dL Normal 5-40 [facility] Comment on above: Performed By: #### L 501.9520, L501.2450, L500.4100 ####[facility] [address] [place], [address] Triglyceride [Mass/Vol] 76 mg/dL Normal [facility] Comment on above: Result Comment: The drugs N-Acetylcysteine and Metamizole may falselydepress this assay.Serum Triglycerides Reference Interval Normal <150 mg/dL Borderline high 150 - 199 mg/dL High 200 - 499 mg/dL Very High > or = 500 mg/dL Performed By: #### L 501.9520, L501.2450, L500.4100 ####[facility] [address] [place], [address] Liver Profileon 09-14-2024 Albumin [Mass/Vol] 2.9 g/dL Low 3.2-5.0 [facility] Comment on above: Performed By: #### L 500.3400, L503.6005 ####[facility] [address] [place], [address] ALK P 87 U/L Normal 45-117 [facility] Comment on above: Performed By: #### L 500.3400, L503.6005 ####[facility] [address] [place], [address] ALT [Catalytic activity/Vol] 23 U/L Normal 13-56 [facility] Comment on above: Performed By: #### L 500.3400, L503.6005 ####[facility] [address] [place], [address] AST [Catalytic activity/Vol] 28 U/L Normal 15-37 [facility] Comment on above: Performed By: #### L 500.3400, L503.6005 ####[facility] [address] [place], [address] Bilirubin [Mass/Vol] 0.50 mg/dL Normal 0.20-1.00 [facility] Comment on above: Result Comment: For patients on eltrombopag therapy, use of Dimension [place] TBIL is not recommended. Performed By: #### L 500.3400, L503.6005 ####[facility] [address] [place], [address] Bilirubin.direct [Mass/Vol] 0.11 mg/dL Normal 0.00-0.30 [facility] Comment on above: Performed By: #### L 500.3400, L503.6005 ####[facility] [address] [place], [address] Globulin (S) [Mass/Vol] 3.6 g/dL Normal 2.2-4.2 [facility] Comment on above: Performed By: #### L 500.3400, L503.6005 ####[facility] [address] [place], [address] T PROT 6.5 g/dL Normal 6.4-8.2 [facility] Comment on above: Performed By: #### L 500.3400, L503.6005 ####[facility] [address] [place], [address] Magnesiumon 09-14-2024 Magnesium [Mass/Vol] 2.2 mg/dL Normal 1.6-2.6 [facility] Comment on above: Performed By: #### L 100.0100, L500.4050, L501.2300, L501.5200 ####[facility] [address] [place], [address] Phosphoruson 09-14-2024 Phosphate [Mass/Vol] 3.3 mg/dL Normal 2.5-4.9 [facility] Comment on above: Performed By: #### L 100.0100, L500.4050, L501.2300, L501.5200 ####[facility] [address] [place], [address] T4 Free Directon 09-14-2024 T4 FREE DIRECT 1.47 ng/dL High 0.76-1.46 [facility] Comment on above: Performed By: #### L 506.0400 ####[facility] [address] [place], [address] Thyroid Stim Hormone (TSH)on 09-14-2024 TSH 14.000 uIU/mL High 0.358-3.740 [facility] Comment on above: Performed By: #### L 501.9520, L501.2450, L500.4100 ####[facility] [address] [place], [address] Urinalysis, Completeon 09-14 BACTERIA RARE Normal None Seen [facility] Comment on above: Order Comment: CLEAN CATCH Performed By: #### L 400.0001 ####[facility] [address] [place], [address] EPI,SQUAMOUS 0-5 SEEN Normal 5-10 [facility] Comment on above: Order Comment: CLEAN CATCH Performed By: #### L 400.0001 ####[facility] [address] [place], [address] EPI,TRANSITION 0-5 SEEN Normal 0-5 [facility] Comment on above: Order Comment: CLEAN CATCH Performed By: #### L 400.0001 ####[facility] [address] [place], [address] RBC 0-5 SEEN Normal 0-5 [facility] Comment on above: Order Comment: CLEAN CATCH Performed By: #### L 400.0001 ####[facility] [address] [place], [address] WBC 0-5 SEEN Normal 0-5 [facility] Comment on above: Order Comment: CLEAN CATCH Performed By: #### L 400.0001 ####[facility] [address] [place], [address] 12 Lead EKGon 09-13-2024 12 Lead EKG Normal [facility] Basic Metabolic Profile (BMP )on 09-13-2024 BUN/CRE 15.5 RATIO Normal 10-20 [facility] Comment on above: Order Comment: 1Y Performed By: #### L 100.0100, L501.5425, L500.2500 ####[facility] [address] [place], [address] CA,Total 9.4 mg/dL Normal 8.5-10.1 [facility] Comment on above: Order Comment: 1Y Performed By: #### L 100.0100, L501.5425, L500.2500 ####[facility] [address] [place], [address] Chloride [Moles/Vol] 106 mmol/L Normal 98-107 [facility] Comment on above: Order Comment: 1Y Performed By: #### L 100.0100, L501.5425, L500.2500 ####[facility] [address] [place], [address] CO2 [Moles/Vol] 23.0 mmol/L Normal 21.0-32.0 [facility] Comment on above: Order Comment: 1Y Performed By: #### L 100.0100, L501.5425, L500.2500 ####[facility] [address] [place], [address] Creatinine [Mass/Vol] 1.16 mg/dL High 0.55-1.02 [facility] Comment on above: Order Comment: 1Y Result Comment: The validity of the calculated GFR GFRAA in patients over70 years has not been determined. Clinical correlation isessential. Performed By: #### L 100.0100, L501.5425, L500.2500 ####[facility] [address] [place], [address] ECRCL 36.88 ml/min Normal [facility] Comment on above: Order Comment: 1Y Performed By: #### L 100.0100, L501.5425, L500.2500 ####[facility] [address] [place], [address] EST GFR - AA 59 mL/min Low >60 [facility] Comment on above: Order Comment: 1Y Result Comment: Afri can Polish GFR Calc Performed By: #### L 100.0100, L501.5425, L500.2500 ####[facility] [address] [place], [address] GAP 9 Normal 5-15 [facility] Comment on above: Order Comment: 1Y Performed By: #### L 100.0100, L501.5425, L500.2500 ####[facility] [address] [place], [address] GFR/1.73 sq M.predicted among non-blacks MDRD (S/P/Bld) [Vol rate/Area] 49 mL/min/{1.73_m2} Low >60 [facility] Comment on above: Order Comment: 1Y Result Comment: Non- GFR Calc Performed By: #### L 100.0100, L501.5425, L500.2500 ####[facility] [address] [place], [address] Glucose [Mass/Vol] 105 mg/dL Normal 74-106 [facility] Comment on above: Order Comment: 1Y Result Comment: Fast ing Glucose result from 100 to 125 mg/dLsuggests IMPAIRED HOMEOSTASIS per A.D.A. criteria. Performed By: #### L 100.0100, L501.5425, L500.2500 ####[facility] [address] [place], [address] Potassium [Moles/Vol] 4.3 mmol/L Normal 3.5-5.1 [facility] Comment on above: Order Comment: 1Y Performed By: #### L 100.0100, L501.5425, L500.2500 ####[facility] [address] [place], [address] Sodium [Moles/Vol] 138 mmol/L Normal 136-145 [facility] Comment on above: Order Comment: 1Y Performed By: #### L 100.0100, L501.5425, L500.2500 ####[facility] [address] [place], [address] Urea nitrogen [Mass/Vol] 18 mg/dL Normal 7-18 [facility] Comment on above: Order Comment: 1Y Performed By: #### L 100.0100, L501.5425, L500.2500 ####[facility] [address] [place], [address] CBC W/Diff, Automatedon 12-2 Absolute Lymph 3.02 X10 3/uL Normal 0.83-4.51 [facility] Comment on above: Performed By: #### L 100.0100, L501.5425, L500.2500 ####[facility] [address] [place], [address] Absolute Neut 7.2 X10 3/uL Normal 2.0-7.7 [facility] Comment on above: Performed By: #### L 100.0100, L501.5425, L500.2500 ####[facility] [address] [place], [address] Basophils/100 WBC (Bld) 0.9 % Normal 0-1 [facility] Comment on above: Performed By: #### L 100.0100, L501.5425, L500.2500 ####[facility] [address] [place], [address] Eosinophils/100 WBC (Bld) 2.0 % Normal 0-5 [facility] Comment on above: Performed By: #### L 100.0100, L501.5425, L500.2500 ####[facility] [address] [place], [address] Erythrocyte distribution width (RBC) [Ratio] 13.0 % Normal 11.6-14.6 [facility] Comment on above: Performed By: #### L 100.0100, L501.5425, L500.2500 ####[facility] [address] [place], [address] Hematocrit (Bld) [Volume fraction] 38.2 % Normal 37-47 [facility] Comment on above: Performed By: #### L 100.0100, L501.5425, L500.2500 ####[facility] [address] [place], [address] Hemoglobin (Bld) [Mass/Vol] 12.6 g/dL Normal 12.0-15.0 [facility] Comment on above: Performed By: #### L 100.0100, L501.5425, L500.2500 ####[facility] [address] [place], [address] IG% 0.600 Normal 0.0-0.9 [facility] Comment on above: Result Comment: IG% - Immature Granulocytes (promyelocytes, myelocytes andmetamyelocytes) > 1% indicates that a LEFT SHIFT is Present. Performed By: #### L 100.0100, L501.5425, L500.2500 ####[facility] [address] [place], [address] Lymphocytes/100 WBC (Bld) 26.9 % Normal 19-41 [facility] Comment on above: Performed By: #### L 100.0100, L501.5425, L500.2500 ####[facility] [address] [place], [address] MCH (RBC) [Entitic mass] 30.2 pg Normal 27.0-32.0 [facility] Comment on above: Performed By: #### L 100.0100, L501.5425, L500.2500 ####[facility] [address] [place], [address] MCHC (RBC) [Mass/Vol] 33.0 g/dL Normal 32-36 [facility] Comment on above: Performed By: #### L 100.0100, L501.5425, L500.2500 ####[facility] [address] [place], [address] MCV (RBC) [Entitic vol] 91.6 fL Normal 81-99 [facility] Comment on above: Performed By: #### L 100.0100, L501.5425, L500.2500 ####[facility] [address] [place], [address] Monocytes/100 WBC (Bld) 5.6 % Normal 0-10 [facility] Comment on above: Performed By: #### L 100.0100, L501.5425, L500.2500 ####[facility] [address] [place], [address] Neutrophils/100 WBC (Bld) 64.0 % Normal 47-70 [facility] Comment on above: Performed By: #### L 100.0100, L501.5425, L500.2500 ####[facility] [address] [place], [address] Nucleated RBC (Bld) [#/Vol] 0 10*3/uL Normal 0-5 [facility] Comment on above: Performed By: #### L 100.0100, L501.5425, L500.2500 ####[facility] [address] [place], [address] Platelet mean volume (Bld) [Entitic vol] 9.3 fL Normal 6.2-12.0 [facility] Comment on above: Performed By: #### L 100.0100, L501.5425, L500.2500 ####[facility] [address] [place], [address] Platelets (Bld) [#/Vol] 498 10*3/uL High 150-450 [facility] Comment on above: Performed By: #### L 100.0100, L501.5425, L500.2500 ####[facility] [address] [place], [address] RBC (Bld) [#/Vol] 4.17 10*6/uL Low 4.2-5.4 [facility] Comment on above: Performed By: #### L 100.0100, L501.5425, L500.2500 ####[facility] [address] [place], [address] RDW SD 43.3 fl Normal 35.1-43.9 [facility] Comment on above: Performed By: #### L 100.0100, L501.5425, L500.2500 ####[facility] [address] [place], [address] WBC (Bld) [#/Vol] 11.2 10*3/uL High 4.4-11.0 [facility] Comment on above: Performed By: #### L 100.0100, L501.5425, L500.2500 ####[facility] [address] [place], [address] CTA Chst, Abd, Pel W and/or WOon 09-13-2024 CTA Chst, Abd, Pel W and/or WO Normal [facility] Emergency Department Summary on 09-13-2024 Emergency Department Summary Normal [facility] L501.5425on 09-13-2024 TROPONIN-I HS 8 pg/mL Normal 3.0-54.0 [facility] Comment on above: Order Comment: 1Y Result Comment: Michael arreola Note: New Test Units and Gender Specific Reference Ranges. For more information see Policy Stat Procedure [place] High Sensitivity Troponin (TNIH) and attachments. Performed By: #### L 100.0100, L501.5425, L500.2500 ####[facility] [address] [place], [address] Prothrombin Time w/INRon INR Coag (PPP) [Relative time] 1.0 {INR} Normal [facility] Comment on above: Performed By: #### L 300.3900 ####[facility] [address] [place], [address] PT Coag (PPP) [Time] 13.6 s Normal 11.7-14.9 [facility] Comment on above: Performed By: #### L 300.3900 ####[facility] [address] [place], [address] Urinalysis, Completeon 09-13 Mucus Ql (Urine sed) 0 SEEN Normal [facility] Comment on above: Order Comment: CLEAN CATCH Performed By: #### L 400.0001 ####[facility] [address] [place], [address] UR Preservative No Preservative Normal [facility] Comment on above: Order Comment: CLEAN CATCH Result Comment: ANAL YZER ERROR Performed By: #### L 400.0001 ####[facility] [address] [place], [address] BILIRUBIN URINE Negative Normal Negative [facility] Comment on above: Order Comment: CLEAN CATCH Result Comment: ANAL YZER ERROR Performed By: #### L 400.0001 ####[facility] [address] [place], [address] Clarity (U) Sl. Cloudy Normal Clear [facility] Comment on above: Order Comment: CLEAN CATCH Result Comment: ANAL YZER ERROR Performed By: #### L 400.0001 ####[facility] [address] [place], [address] Color (U) Yellow Normal Yellow [facility] Comment on above: Order Comment: CLEAN CATCH Result Comment: ANAL YZER ERROR Performed By: #### L 400.0001 ####[facility] [address] [place], [address] GLUCOSE, UR Normal Normal Normal [facility] Comment on above: Order Comment: CLEAN CATCH Result Comment: ANAL YZER ERROR Performed By: #### L 400.0001 ####[facility] [address] [place], [address] KETONE UR Negative Normal Negative [facility] Comment on above: Order Comment: CLEAN CATCH Result Comment: ANAL YZER ERROR Performed By: #### L 400.0001 ####[facility] [address] [place], [address] LEUK ESTERASE 500 /ul Abnormal Negative [facility] Comment on above: Order Comment: CLEAN CATCH Result Comment: ANAL YZER ERROR Performed By: #### L 400.0001 ####[facility] [address] [facility] [address] Nitrite Ql (U) Negative Normal Negative [facility] Comment on above: Order Comment: CLEAN CATCH Result Comment: ANAL YZER ERROR Performed By: #### L 400.0001 ####[facility] [address] [place], [address] OCCULT BLOOD-UR 10 /ul Abnormal Negative [facility] Comment on above: Order Comment: CLEAN CATCH Result Comment: ANAL YZER ERROR Performed By: #### L 400.0001 ####[facility] [address] [place], [address] pH UR 7.0 Normal 5.0 - 8.0 [facility] Comment on above: Order Comment: CLEAN CATCH Result Comment: ANAL YZER ERROR Performed By: #### L 400.0001 ####[facility] [address] [place], [address] PROT DIPSTX Negative Normal Negative [facility] Comment on above: Order Comment: CLEAN CATCH Result Comment: ANAL YZER ERROR Performed By: #### L 400.0001 ####[facility] [address] [place], [address] SP.GR. DIPSTX 1.010 Normal 1.002-1.030 [facility] Comment on above: Order Comment: CLEAN CATCH Result Comment: ANAL YZER ERROR Performed By: #### L 400.0001 ####[facility] [address] [place], [address] UROBILI Normal Normal Normal [facility] Comment on above: Order Comment: CLEAN CATCH Result Comment: ANAL YZER ERROR Performed By: #### L 400.0001 ####[facility] [address] [place], [address] BACTERIA 0 SEEN Normal None Seen [facility] Comment on above: Order Comment: CLEAN CATCH Result Comment: ANAL YZER ERROR Performed By: #### L 400.0001 ####[facility] [address] [place], [address] EPI,SQUAMOUS 0 SEEN Normal 5-10 [facility] Comment on above: Order Comment: CLEAN CATCH Result Comment: ANAL YZER ERROR Performed By: #### L 400.0001 ####[facility] [address] [place], [address] Mucus Ql (Urine sed) 0 SEEN Normal [facility] Comment on above: Order Comment: CLEAN CATCH Result Comment: ANAL YZER ERROR Performed By: #### L 400.0001 ####[facility] [address] [place], [address] RBC 0 SEEN Normal 0-5 [facility] Comment on above: Order Comment: CLEAN CATCH Result Comment: ANAL YZER ERROR Performed By: #### L 400.0001 ####[facility] [address] [place], [address] WBC 0 SEEN Normal 0-5 [facility] Comment on above: Order Comment: CLEAN CATCH Result Comment: ANAL YZER ERROR Performed By: #### L 400.0001 ####[facility] [address] [place], [address] CNPNon 12-26-2024 [facility] Telephone (FPUPDV) SHAWNKAITLYN COHEN I ([id number]) 1950 F Date Time Provider Department 09/11/24 KENTRELL DHALIWAL II FPUPDV During your visit today, we recorded the following information about you: Estelita Lomeli 09/11/2024 3:28 PM Signed Patient calls She said her left ear is painful. No seeping. No fever. Started today. She asked if something can be sent in. Thank you. [phone] Kentrell Dhaliwal II, MD 09/12/2024 6:03 PM Signed Rx sent Allergies As of Date: 09/11/2024 Noted Allergy Reaction LATEX 06/22/2020 10 - Anaphylaxis ABILIFY (ARIPIPRAZOLE) 04/19/2022 14 - Other: See Comments Comments: Muscles couldn't get up CODEINE 06/22/2020 6 - Diarrhea COMPAZINE (PROCHLORPERAZINE) 06/22/2020 17 - Myalgia LEVAQUIN (LEVOFLOXACIN) 06/22/2020 6 - Diarrhea OMNICEF (CEFDINIR) 06/22/2020 6 - Diarrhea PREDNISONE 08/30/2021 8 - GI Upset PROPOXYPHENE 06/23/2015 16 - Unknown [id number] REDUCTASE INHIBIT*06/22/2020 6 - Diarrhea 5 - Intolerance SULFA (SULFONAMIDE ANTIBIOTICS) 06/15/2020 14 - Other: See Comments Comments: Leg pain SHELLFISH CONTAINING PRODUCTS 11/29/2012 7 - Swelling Date Reviewed: 09/03/2024 Reviewed by: Yolanda Micthell MA - Fully Assessed Reason for Visit: Ear Pain [817] Order(s):clindamycin (CLEOCIN) 300 mg capsuleTake 1 capsule by mouth every 8 hours for 7 days.Disp: 21 capsuleRfl: 0 Prescriptions as of 09/12/2024 - warfarin (COUMADIN) 5 mg tablet Take 1 tablet by mouth once daily. - clindamycin (CLEOCIN) 300 mg capsule Take 1 capsule by mouth every 8 hours for 7 days. - furosemide (LASIX) 20 mg tablet Take 1 tablet by mouth once daily. - nabumetone (RELAFEN) 750 mg tablet Take 1 tablet by mouth every 12 hours as needed for pain. - omeprazole (PRILOSEC) 40 mg capsule Take 1 capsule by mouth once daily. - busPIRone (BUSPAR) 15 mg tablet Take 1 tablet by mouth three times a day. - ALPRAZolam (XANAX) 1 mg tablet Take 1 tablet by mouth every 12 hours as needed for up to 30 days. - ferrous gluconate 236 mg (27 mg iron) tab Take 1 tablet by mouth once daily. - citalopram (CELEXA) 20 mg tablet Take 1 tablet by mouth once daily. - zolpidem (AMBIEN) 10 mg Take 1 tablet by mouth at bedtime as needed for up to 90 days. - ezetimibe (ZETIA) 10 mg tablet take 1 tablet by mouth once daily - naphazoline-pheniramin e eye drops (NAPHCON-A) 0.025-0.3 % ophthalmic solution Use 2 Drops in the left eye every 6 hours as needed. - ondansetron (ZOFRAN) 8 mg tablet Take 1 tablet by mouth every 8 hours as needed for nausea/vomiting. - albuterol HFA (PROVENTIL HFA, VENTOLIN HFA) 90 mcg/actuation inhaler Inhale 2 Puffs as instructed every 6 hours as needed for wheezing/shortness of breath. - promethazine (PHENERGAN) 25 mg tablet Take 1 tablet by mouth every 6 hours as needed. - levothyroxine (SYNTHROID) 50 mcg tablet Take 1 tablet by mouth once daily. - rOPINIRole (REQUIP) 0.5 mg tablet Take 1 tablet by mouth two times a day. - clotrimazole-betametha sone (LOTRISONE) cream Apply to affected area two times a day. - diphenoxylate-atropine (LOMOTIL) 2.5-0.025 mg per tablet Take 1 tablet by mouth four times a day as needed for up to 10 days. - ondansetron orally disintegrating (ZOFRAN ODT) 4 mg disintegrating tablet Take 1 tablet by mouth every 8 hours as needed for nausea/vomiting. - knqsxidjha-ovxvkcci-ro rmoterol (BREZTRI AEROSPHERE) 160-9-4.8 mcg/actuation HFA aerosol inhaler Inhale 2 Puffs as instructed two times a day. - simethicone 250 mg cap Take 1 capsule by mouth three times a day. - hyoscyamine SR (LEVBID) 0.375 mg 12 hr tablet Take 1 tablet by mouth two times a day. - dicyclomine (BENTYL) 20 mg tablet Take 1 tablet by mouth three times a day. - ondansetron (ZOFRAN) 4 mg tablet Take 1 tablet by mouth every 6 hours as needed. - buPROPion XL (WELLBUTRIN XL) 150 mg 24 hr tablet Take 2 tablets by mouth once daily. - cyclobenzaprine (FLEXERIL) 10 mg tablet Take 1 tablet by mouth three times daily as needed. - docusate sodium (COLACE) 100 mg capsule Take 1 capsule by mouth twice daily. 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 [facility]FP[facility] KAITLYN ESCOBAR I ([id number]) 1950 F Date Time Provider Department 09/03/24 4:00 PM KENTRELL DHALIWAL II FPUPDV During your visit today, we recorded the following information about you: Pulse Blood pressure Weight Height 83/minute 150/80 69.9 kg 1.549 m Kentrell Dhaliwal II, MD 09/21/2024 3:43 PM Signed Kentrell Dhaliwal II, MD [address], [place] [address] SUBJECTIVE Kaitlyn Escobar is a 74 year old female who presents with F/U 3 Month. HPI Patient is in today to follow-up chronic problems. She states that she feels like she is actually doing fairly good right now and she just needs some refills on medication. Review of Systems Constitutional: Negative for activity change, appetite change, chills, diaphoresis, fatigue, fever and unexpected weight change. HENT: Negative for congestion, dental problem, drooling, ear discharge, ear pain, facial swelling, hearing loss, mouth sores, nosebleeds, postnasal drip, rhinorrhea, sinus pressure, sinus pain, sneezing, sore throat, tinnitus, trouble swallowing and voice change. Eyes: Negative for discharge, redness and visual disturbance. Respiratory: Negative for apnea, cough, choking, chest tightness, shortness of breath, wheezing and stridor. Cardiovascular: Negative for chest pain, palpitations and leg swelling. Gastrointestinal: Negative for abdominal distention, abdominal pain, blood in stool, constipation, diarrhea, nausea and vomiting. Endocrine: Negative for cold intolerance, heat intolerance, polydipsia, polyphagia and polyuria. Genitourinary: Negative for decreased urine volume, difficulty urinating, dysuria, enuresis, frequency, hematuria and urgency. Musculoskeletal: Negative for arthralgias, gait problem and myalgias. Skin: Negative for color change, pallor, rash and wound. Allergic/Immunologic: Negative for environmental allergies. Neurological: Negative for dizziness, tremors, syncope, facial asymmetry, speech difficulty, weakness, light-headedness, numbness and headaches. Hematological: Negative for adenopathy. Does not bruise/bleed easily. Psychiatric/Behavioral : Negative for agitation, behavioral problems, confusion, decreased concentration, dysphoric mood, hallucinations, self-injury, sleep disturbance and suicidal ideas. The patient is not nervous/anxious and is not hyperactive. PAST MEDICAL HISTORY Diagnosis Date Anxiety and depression Diabetes (HCC) Drug-induced Parkinson's disease (HCC) GERD (gastroesophageal reflux disease) History of DVT (deep vein thrombosis) IBS (irritable bowel syndrome) Seizures (HCC) Small bowel obstruction (HCC) Tremor PAST SURGICAL HISTORY Procedure Laterality Date CHOLECYSTECTOMY HX COLON SURGERY HX HYSTERECTOMY HX ROTATOR CUFF REPAIR Left TONSILLECTOMY HX WRIST SURGERY HX Right Social History Tobacco Use Smoking status: Never Smokeless tobacco: Never Vaping Use Vaping status: Never Used Substance Use Topics Alcohol use: Not Currently Drug use: Never FAMILY HISTORY Problem Relation Age of Onset Emphysema Mother Heart disease Father The ROS, medical, surgical, family, and social history were reviewed by Kentrell Dhaliwal II, MD ALLERGIES Allergen Reactions Latex Anaphylaxis Abilify [Aripiprazo* Other: See Comments Muscles couldn't get up Codeine Diarrhea Compazine [Prochlor* Myalgia Levaquin [Levofloxa* Diarrhea Omnicef [Cefdinir] Diarrhea Prednisone GI Upset Propoxyphene Unknown [id number] Red* Diarrhea, Intolerance Sulfa (Sulfonamide * Other: See Comments Leg pain Shellfish Containin* Swelling Current Outpatient Medications Medication Sig ALPRAZolam (XANAX) 1 mg tablet Take 1 tablet by mouth every 12 hours as needed for up to 30 days. ferrous gluconate 236 mg (27 mg iron) tab Take 1 tablet by mouth once daily. citalopram (CELEXA) 20 mg tablet Take 1 tablet by mouth once daily. zolpidem (AMBIEN) 10 mg Take 1 tablet by mouth at bedtime as needed for up to 90 days. ezetimibe (ZETIA) 10 mg tablet take 1 tablet by mouth once daily naphazoline-pheniramin e eye drops (NAPHCON-A) 0.025-0.3 % ophthalmic solution Use 2 Drops in the left eye every 6 hours as needed. (Patient not taking: Reported on 09/18/2024) ondansetron (ZOFRAN) 8 mg tablet Take 1 tablet by mouth every 8 hours as needed for nausea/vomiting. (Patient not taking: Reported on 09/18/2024) albuterol HFA (PROVENTIL HFA, VENTOLIN HFA) 90 mcg/actuation inhaler Inhale 2 Puffs as instructed every 6 hours as needed for wheezing/shortness of breath. promethazine (PHENERGAN) 25 mg tablet Take 1 tablet by mouth every 6 hours as needed. (Patient not taking: Reported on 09/18/2024) levothyroxine (SYNTHROID) 50 mcg tablet Take 1 tablet by mouth once daily. rOPINIRole (REQUIP) 0.5 mg tablet Take 1 tablet by mouth (more content not included)... [facility] 08-28-2024 [facility] Telephone (FPUPDV) KAITLYN ESCOBAR I ([id number]) 1950 F Date Time Provider Department 08/28/24 KENTRELL DHALIWAL II UPDV During your visit today, we recorded the following information about you: Mari Platt 08/28/2024 1:05 PM Signed Patient calls today. Reason for Call: Kaitlyn called requesting a refill on alprazolam. She uses [facility] in [place] [phone] (home) [phone] (cell) Patient last appointment: 08/19/2024 Mari Lc Allergies As of Date: 08/28/2024 Noted Allergy Reaction LATEX 06/22/2020 10 - Anaphylaxis ABILIFY (ARIPIPRAZOLE) 04/19/2022 14 - Other: See Comments Comments: Muscles couldn't get up CODEINE 06/22/2020 6 - Diarrhea COMPAZINE (PROCHLORPERAZINE) 06/22/2020 17 - Myalgia LEVAQUIN (LEVOFLOXACIN) 06/22/2020 6 - Diarrhea OMNICEF (CEFDINIR) 06/22/2020 6 - Diarrhea PREDNISONE 08/30/2021 8 - GI Upset PROPOXYPHENE 06/23/2015 16 - Unknown [id number]-[id number]-[id number] REDUCTASE INHIBIT*06/22/2020 6 - Diarrhea 5 - Intolerance SULFA (SULFONAMIDE ANTIBIOTICS) 06/15/2020 14 - Other: See Comments Comments: Leg pain SHELLFISH CONTAINING PRODUCTS 11/29/2012 7 - Swelling Date Reviewed: 07/12/2024 Reviewed by: Kentrell Dhaliwal II, MD - Fully Assessed Visit Diagnosis:Anxiety and depression [F41.9, F32.A] Order(s):ALPRAZolam (XANAX) 1 mg tabletTake 1 tablet by mouth every 12 hours as needed for up to 30 days.Disp: 60 tabletRfl: 0 Prescriptions as of 08/29/2024 - ALPRAZolam (XANAX) 1 mg tablet Take 1 tablet by mouth every 12 hours as needed for up to 30 days. - busPIRone (BUSPAR) 15 mg tablet Take 1 tablet by mouth two times a day. - ferrous gluconate 236 mg (27 mg iron) tab Take 1 tablet by mouth once daily. - citalopram (CELEXA) 20 mg tablet Take 1 tablet by mouth once daily. - zolpidem (AMBIEN) 10 mg Take 1 tablet by mouth at bedtime as needed for up to 90 days. - ezetimibe (ZETIA) 10 mg tablet take 1 tablet by mouth once daily - naphazoline-pheniramin e eye drops (NAPHCON-A) 0.025-0.3 % ophthalmic solution Use 2 Drops in the left eye every 6 hours as needed. - ondansetron (ZOFRAN) 8 mg tablet Take 1 tablet by mouth every 8 hours as needed for nausea/vomiting. - albuterol HFA (PROVENTIL HFA, VENTOLIN HFA) 90 mcg/actuation inhaler Inhale 2 Puffs as instructed every 6 hours as needed for wheezing/shortness of breath. - promethazine (PHENERGAN) 25 mg tablet Take 1 tablet by mouth every 6 hours as needed. - levothyroxine (SYNTHROID) 50 mcg tablet Take 1 tablet by mouth once daily. - omeprazole (PRILOSEC) 40 mg capsule Take 1 capsule by mouth once daily. - rOPINIRole (REQUIP) 0.5 mg tablet Take 1 tablet by mouth two times a day. - clotrimazole-betametha sone (LOTRISONE) cream Apply to affected area two times a day. - diphenoxylate-atropine (LOMOTIL) 2.5-0.025 mg per tablet Take 1 tablet by mouth four times a day as needed for up to 10 days. - warfarin (COUMADIN) 5 mg tablet Take 1 tablet by mouth once daily. - ondansetron orally disintegrating (ZOFRAN ODT) 4 mg disintegrating tablet Take 1 tablet by mouth every 8 hours as needed for nausea/vomiting. - phcktadgkd-dxzzckfj-uq rmoterol (BREZTRI AEROSPHERE) 160-9-4.8 mcg/actuation HFA aerosol inhaler Inhale 2 Puffs as instructed two times a day. - simethicone 250 mg cap Take 1 capsule by mouth three times a day. - hyoscyamine SR (LEVBID) 0.375 mg 12 hr tablet Take 1 tablet by mouth two times a day. - dicyclomine (BENTYL) 20 mg tablet Take 1 tablet by mouth three times a day. - ondansetron (ZOFRAN) 4 mg tablet Take 1 tablet by mouth every 6 hours as needed. - traMADol (ULTRAM) 50 mg tablet Take 1 tablet by mouth every 6 hours as needed. - buPROPion XL (WELLBUTRIN XL) 150 mg 24 hr tablet Take 2 tablets by mouth once daily. - cyclobenzaprine (FLEXERIL) 10 mg tablet Take 1 tablet by mouth three times daily as needed. - docusate sodium (COLACE) 100 mg capsule Take 1 capsule by mouth twice daily. 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 (more content not included)... [facility] 08-19-2024 [facility] Telephone (FPUPDV) KAITLYN ESCOBAR I ([id number]) 1950 F Date Time Provider Department 08/19/24 KENTRELL DHALIWAL II FPUPDV During your visit today, we recorded the following information about you: Patience Choi 08/19/2024 1:33 PM Addendum [facility] CALLED TO MENTION THAT PATIENT IS WISHING TO BE SCHEDULED FOR DENTAL PROCEDURE BY WEEK'S END. HER DENTIST WILL BE LEAVING BY WEEK'S END PATIENT WILL HAVE TO BE OFF BLOOD THINNERS VERY SOON IN ORDER TO BE SCHEDULED BEFORE HER DENTIST LEAVES. ASKING IF OFFICE CAN CALL [phone], OPTION 2 (ASK FOR CARRI) TO ADVISE WHEN MEDICAL RELEASE PAPERWORK IS READY TO BE FAXED SO THAT PATIENT CAN BE SCHEDULED THANK YOU Kentrell Cano II, MD 08/19/2024 2:05 PM Signed She can stop it now. We do not have the paperwork as I had already filled it out and we had already advised via phone on how to address her meds and have already completed forms to that effect 08/11/24 an shredded the forms as duplicates in ERROR How many times do they request the form be completed? Husam Mendez MA 08/19/2024 2:18 PM Signed Patient is having 8/9 more teeth extracted. Form received requesting protocol on warfarin for the 8/9 more teeth extractions. Form put on Dr Dhaliwal desk. Sorry that they are requesting new form for extracting more teeth. LISA Junior Sabrina, MA 08/19/2024 4:12 PM Signed Faxed surgical clearance form to [facility]. Husam Grant MA Allergies As of Date: 08/19/2024 Noted Allergy Reaction LATEX 06/22/2020 10 - Anaphylaxis ABILIFY (ARIPIPRAZOLE) 04/19/2022 14 - Other: See Comments Comments: Muscles couldn't get up CODEINE 06/22/2020 6 - Diarrhea COMPAZINE (PROCHLORPERAZINE) 06/22/2020 17 - Myalgia LEVAQUIN (LEVOFLOXACIN) 06/22/2020 6 - Diarrhea OMNICEF (CEFDINIR) 06/22/2020 6 - Diarrhea PREDNISONE 08/30/2021 8 - GI Upset PROPOXYPHENE 06/23/2015 16 - Unknown NXUOXEG-BWA-HTL REDUCTASE INHIBIT*06/22/2020 6 - Diarrhea 5 - Intolerance SULFA (SULFONAMIDE ANTIBIOTICS) 06/15/2020 14 - Other: See Comments Comments: Leg pain SHELLFISH CONTAINING PRODUCTS 11/29/2012 7 - Swelling Date Reviewed: 07/12/2024 Reviewed by: Kentrell Dhaliwal II, MD - Fully Assessed Prescriptions as of 08/19/2024 - busPIRone (BUSPAR) 15 mg tablet Take 1 tablet by mouth two times a day. - ferrous gluconate 236 mg (27 mg iron) tab Take 1 tablet by mouth once daily. - ALPRAZolam (XANAX) 1 mg tablet Take 1 tablet by mouth every 12 hours as needed for up to 30 days. - citalopram (CELEXA) 20 mg tablet Take 1 tablet by mouth once daily. - zolpidem (AMBIEN) 10 mg Take 1 tablet by mouth at bedtime as needed for up to 90 days. - ezetimibe (ZETIA) 10 mg tablet take 1 tablet by mouth once daily - naphazoline-pheniramin e eye drops (NAPHCON-A) 0.025-0.3 % ophthalmic solution Use 2 Drops in the left eye every 6 hours as needed. - ondansetron (ZOFRAN) 8 mg tablet Take 1 tablet by mouth every 8 hours as needed for nausea/vomiting. - albuterol HFA (PROVENTIL HFA, VENTOLIN HFA) 90 mcg/actuation inhaler Inhale 2 Puffs as instructed every 6 hours as needed for wheezing/shortness of breath. - promethazine (PHENERGAN) 25 mg tablet Take 1 tablet by mouth every 6 hours as needed. - levothyroxine (SYNTHROID) 50 mcg tablet Take 1 tablet by mouth once daily. - omeprazole (PRILOSEC) 40 mg capsule Take 1 capsule by mouth once daily. - rOPINIRole (REQUIP) 0.5 mg tablet Take 1 tablet by mouth two times a day. - clotrimazole-betametha sone (LOTRISONE) cream Apply to affected area two times a day. - diphenoxylate-atropine (LOMOTIL) 2.5-0.025 mg per tablet Take 1 tablet by mouth four times a day as needed for up to 10 days. - warfarin (COUMADIN) 5 mg tablet Take 1 tablet by mouth once daily. - ondansetron orally disintegrating (ZOFRAN ODT) 4 mg disintegrating tablet Take 1 tablet by mouth every 8 hours as needed for nausea/vomiting. - owwvjqrfdh-osfeucfh-kc rmoterol (BREZTRI AEROSPHERE) 160-9-4.8 mcg/actuation HFA aerosol inhaler Inhale 2 Puffs as instructed two times a day. - simethicone 250 mg cap Take 1 capsule by mouth three times a day. - hyoscyamine SR (LEVBID) 0.375 mg 12 hr tablet Take 1 tablet by mouth two times a day. - dicyclomine (BENTYL) 20 mg tablet Take 1 tablet by mouth three times a day. - ondansetron (ZOFRAN) 4 mg tablet Take 1 tablet by mouth every 6 hours as needed. - traMADol (ULTRAM) 50 mg tablet Take 1 tablet by mouth every 6 hours as needed. - buPROPion XL (WELLBUTRIN XL) 150 mg 24 hr tablet Take 2 tablets by mouth once daily. - cyclobenzaprine (FLEXERIL) 10 mg tablet Take 1 tablet by mouth three times daily as needed. - docusate sodium (COLACE) 100 mg capsule Take 1 capsule by mouth twice daily. - SF 5000 PLUS 1.1 % dental cream Problem List As Of Date (more content not included)... [facility] 08-12-2024 [facility] Telephone (FPUPDV) KAITLYN ESCOBAR I ([id number]) 1950 F Date Time Provider Department 08/12/24 KENTRELL DHALIWAL II FPUPDV During your visit today, we recorded the following information about you: Husam Grant MA 08/12/2024 8:36 AM Signed Patient called in regards to wanting to increase her buspar and getting back on her iron. Could Dr Dhaliwal send in new prescription of iron and increase buspar? Please advise LISA Junior Robert Earl II, MD 08/12/2024 5:45 PM Signed Prescriptions sent to the pharmacy Allergies As of Date: 08/12/2024 Noted Allergy Reaction LATEX 06/22/2020 10 - Anaphylaxis ABILIFY (ARIPIPRAZOLE) 04/19/2022 14 - Other: See Comments Comments: Muscles couldn't get up CODEINE 06/22/2020 6 - Diarrhea COMPAZINE (PROCHLORPERAZINE) 06/22/2020 17 - Myalgia LEVAQUIN (LEVOFLOXACIN) 06/22/2020 6 - Diarrhea OMNICEF (CEFDINIR) 06/22/2020 6 - Diarrhea PREDNISONE 08/30/2021 8 - GI Upset PROPOXYPHENE 06/23/2015 16 - Unknown HEXKLUK-LNH-ABQ REDUCTASE INHIBIT*06/22/2020 6 - Diarrhea 5 - Intolerance SULFA (SULFONAMIDE ANTIBIOTICS) 06/15/2020 14 - Other: See Comments Comments: Leg pain SHELLFISH CONTAINING PRODUCTS 11/29/2012 7 - Swelling Date Reviewed: 07/12/2024 Reviewed by: Kentrell Dhaliwal II, MD - Fully Assessed Reason for Visit: Patient Question [2057] Visit Diagnosis:Anxiety and depression [F41.9, F32.A] Order(s):busPIRone (BUSPAR) 15 mg tabletTake 1 tablet by mouth two times a day.Disp: 60 tabletRfl: 5 ferrous gluconate 236 mg (27 mg iron) tabTake 1 tablet by mouth once daily.Disp: 30 tabletRfl: 5 Prescriptions as of 08/13/2024 - busPIRone (BUSPAR) 15 mg tablet Take 1 tablet by mouth two times a day. - ferrous gluconate 236 mg (27 mg iron) tab Take 1 tablet by mouth once daily. - ALPRAZolam (XANAX) 1 mg tablet Take 1 tablet by mouth every 12 hours as needed for up to 30 days. - citalopram (CELEXA) 20 mg tablet Take 1 tablet by mouth once daily. - zolpidem (AMBIEN) 10 mg Take 1 tablet by mouth at bedtime as needed for up to 90 days. - ezetimibe (ZETIA) 10 mg tablet take 1 tablet by mouth once daily - naphazoline-pheniramin e eye drops (NAPHCON-A) 0.025-0.3 % ophthalmic solution Use 2 Drops in the left eye every 6 hours as needed. - ondansetron (ZOFRAN) 8 mg tablet Take 1 tablet by mouth every 8 hours as needed for nausea/vomiting. - albuterol HFA (PROVENTIL HFA, VENTOLIN HFA) 90 mcg/actuation inhaler Inhale 2 Puffs as instructed every 6 hours as needed for wheezing/shortness of breath. - promethazine (PHENERGAN) 25 mg tablet Take 1 tablet by mouth every 6 hours as needed. - levothyroxine (SYNTHROID) 50 mcg tablet Take 1 tablet by mouth once daily. - omeprazole (PRILOSEC) 40 mg capsule Take 1 capsule by mouth once daily. - rOPINIRole (REQUIP) 0.5 mg tablet Take 1 tablet by mouth two times a day. - clotrimazole-betametha sone (LOTRISONE) cream Apply to affected area two times a day. - diphenoxylate-atropine (LOMOTIL) 2.5-0.025 mg per tablet Take 1 tablet by mouth four times a day as needed for up to 10 days. - warfarin (COUMADIN) 5 mg tablet Take 1 tablet by mouth once daily. - ondansetron orally disintegrating (ZOFRAN ODT) 4 mg disintegrating tablet Take 1 tablet by mouth every 8 hours as needed for nausea/vomiting. - vgokkhfsyw-mjxdyiwy-ut rmoterol (BREZTRI AEROSPHERE) 160-9-4.8 mcg/actuation HFA aerosol inhaler Inhale 2 Puffs as instructed two times a day. - simethicone 250 mg cap Take 1 capsule by mouth three times a day. - hyoscyamine SR (LEVBID) 0.375 mg 12 hr tablet Take 1 tablet by mouth two times a day. - dicyclomine (BENTYL) 20 mg tablet Take 1 tablet by mouth three times a day. - ondansetron (ZOFRAN) 4 mg tablet Take 1 tablet by mouth every 6 hours as needed. - traMADol (ULTRAM) 50 mg tablet Take 1 tablet by mouth every 6 hours as needed. - buPROPion XL (WELLBUTRIN XL) 150 mg 24 hr tablet Take 2 tablets by mouth once daily. - cyclobenzaprine (FLEXERIL) 10 mg tablet Take 1 tablet by mouth three times daily as needed. - docusate sodium (COLACE) 100 mg capsule Take 1 capsule by mouth twice daily. 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 [facility] SHAWNKAITLYN I ([id number]) 1950 F Date Time Provider Department 08/11/24 KENTRELL DHALIWAL II FPUPDV During your visit today, we recorded the following information about you: Husam Grant MA 08/11/2024 12:06 PM Signed Patient called office in regards to be at the dentists office. Patient stated that she is getting a tooth extracted and has yanelis off the coumadin for a week. Dental assistant professor of biochemistry asked if a week was long enough for being off coumadin. Went back asked Dr Dhaliwal if a week is long enough to be off the coumadin and per Dr Dhaliwal yes. Informed dental assistant professor of biochemistry per Dr Dhaliwal yes a week is long enough to bee off coumadin. Dental assistant professor of biochemistry stated thank you. LISA Junior Maci 08/19/2024 1:14 PM Signed Briston from [facility] calls to speak with someone in the office in regards to this patient. Call was transferred to [facility] Allergies As of Date: 08/11/2024 Noted Allergy Reaction LATEX 06/22/2020 10 - Anaphylaxis ABILIFY (ARIPIPRAZOLE) 04/19/2022 14 - Other: See Comments Comments: Muscles couldn't get up CODEINE 06/22/2020 6 - Diarrhea COMPAZINE (PROCHLORPERAZINE) 06/22/2020 17 - Myalgia LEVAQUIN (LEVOFLOXACIN) 06/22/2020 6 - Diarrhea OMNICEF (CEFDINIR) 06/22/2020 6 - Diarrhea PREDNISONE 08/30/2021 8 - GI Upset PROPOXYPHENE 06/23/2015 16 - Unknown ZLAPFPV-OVZ-WBT REDUCTASE INHIBIT*06/22/2020 6 - Diarrhea 5 - Intolerance SULFA (SULFONAMIDE ANTIBIOTICS) 06/15/2020 14 - Other: See Comments Comments: Leg pain SHELLFISH CONTAINING PRODUCTS 11/29/2012 7 - Swelling Date Reviewed: 07/12/2024 Reviewed by: Kentrell Dhaliwal II, MD - Fully Assessed Reason for Visit: Patient Question [1477] Prescriptions as of 08/19/2024 - busPIRone (BUSPAR) 15 mg tablet Take 1 tablet by mouth two times a day. - ferrous gluconate 236 mg (27 mg iron) tab Take 1 tablet by mouth once daily. - ALPRAZolam (XANAX) 1 mg tablet Take 1 tablet by mouth every 12 hours as needed for up to 30 days. - citalopram (CELEXA) 20 mg tablet Take 1 tablet by mouth once daily. - zolpidem (AMBIEN) 10 mg Take 1 tablet by mouth at bedtime as needed for up to 90 days. - ezetimibe (ZETIA) 10 mg tablet take 1 tablet by mouth once daily - naphazoline-pheniramin e eye drops (NAPHCON-A) 0.025-0.3 % ophthalmic solution Use 2 Drops in the left eye every 6 hours as needed. - ondansetron (ZOFRAN) 8 mg tablet Take 1 tablet by mouth every 8 hours as needed for nausea/vomiting. - albuterol HFA (PROVENTIL HFA, VENTOLIN HFA) 90 mcg/actuation inhaler Inhale 2 Puffs as instructed every 6 hours as needed for wheezing/shortness of breath. - promethazine (PHENERGAN) 25 mg tablet Take 1 tablet by mouth every 6 hours as needed. - levothyroxine (SYNTHROID) 50 mcg tablet Take 1 tablet by mouth once daily. - omeprazole (PRILOSEC) 40 mg capsule Take 1 capsule by mouth once daily. - rOPINIRole (REQUIP) 0.5 mg tablet Take 1 tablet by mouth two times a day. - clotrimazole-betametha sone (LOTRISONE) cream Apply to affected area two times a day. - diphenoxylate-atropine (LOMOTIL) 2.5-0.025 mg per tablet Take 1 tablet by mouth four times a day as needed for up to 10 days. - warfarin (COUMADIN) 5 mg tablet Take 1 tablet by mouth once daily. - ondansetron orally disintegrating (ZOFRAN ODT) 4 mg disintegrating tablet Take 1 tablet by mouth every 8 hours as needed for nausea/vomiting. - rzekvdhkgf-ezqvmzoq-ym rmoterol (BREZTRI AEROSPHERE) 160-9-4.8 mcg/actuation HFA aerosol inhaler Inhale 2 Puffs as instructed two times a day. - simethicone 250 mg cap Take 1 capsule by mouth three times a day. - hyoscyamine SR (LEVBID) 0.375 mg 12 hr tablet Take 1 tablet by mouth two times a day. - dicyclomine (BENTYL) 20 mg tablet Take 1 tablet by mouth three times a day. - ondansetron (ZOFRAN) 4 mg tablet Take 1 tablet by mouth every 6 hours as needed. - traMADol (ULTRAM) 50 mg tablet Take 1 tablet by mouth every 6 hours as needed. - buPROPion XL (WELLBUTRIN XL) 150 mg 24 hr tablet Take 2 tablets by mouth once daily. - cyclobenzaprine (FLEXERIL) 10 mg tablet Take 1 tablet by mouth three times daily as needed. - docusate sodium (COLACE) 100 mg capsule Take 1 capsule by mouth twice daily. - SF 5000 PLUS 1.1 % dental cream Problem List As Of Date 08/11/2024 Noted Resolved Parkinson's disease (HCC) [G20.A1] 06/22/2020 04/17/2022 Irritable bowel syndrome with both constipation* 0 Subclinical hypothyroidism [E03.8] 06/22/2020 History of DVT (deep vein thrombosis) [Z86.718] 06/22/2020 Prediabetes [R73.03] 06/22/2020 GERD without esophagitis [K21.9] 06/22/2020 04/17/2022 Mild episode of recurrent major depressive diso*06/22/2020 MOODY (generalized anxiety disorder) [F41.1] 06/22/2020 Chronic insomnia [F51.04] 06/22/2020 GERD (gastroesophageal reflux disease) [K21.9] Drug-induced Parkinson's (more content not included)... Normal [facility] 12 Lead EKGon 08-01-2024 12 Lead EKG Normal [facility] Abdomen/Pelvis W IV Cont ONL Yon 08-01-2024 Abdomen/Pelvis W IV Cont ONLY Normal [facility] BNP,B-Type NATRIURETIC PEPTI Karen 08-01-2024 Natriuretic peptide B (Bld) [Mass/Vol] 243.6 pg/mL High 0-100 [facility] Comment on above: Performed By: #### L 501.4020, L501.9520, L100.0100, L503.6620, L501.2450, L500.4050, L506.0400 ####[facility] [address] [place], [address] CBC W/Diff, Automatedon 07-18 Absolute Lymph 3.18 X10 3/uL Normal 0.83-4.51 [facility] Comment on above: Performed By: #### L 501.4020, L501.9520, L100.0100, L503.6620, L501.2450, L500.4050, L506.0400 ####[facility] [address] [place], [address] Absolute Neut 3.7 X10 3/uL Normal 2.0-7.7 [facility] Comment on above: Performed By: #### L 501.4020, L501.9520, L100.0100, L503.6620, L501.2450, L500.4050, L506.0400 ####[facility] [address] [place], [address] Basophils/100 WBC (Bld) 0.8 % Normal 0-1 [facility] Comment on above: Performed By: #### L 501.4020, L501.9520, L100.0100, L503.6620, L501.2450, L500.4050, L506.0400 ####[facility] [address] [place], [address] Eosinophils/100 WBC (Bld) 2.5 % Normal 0-5 [facility] Comment on above: Performed By: #### L 501.4020, L501.9520, L100.0100, L503.6620, L501.2450, L500.4050, L506.0400 ####[facility] [address] [place], [address] Erythrocyte distribution width (RBC) [Ratio] 13.4 % Normal 11.6-14.6 [facility] Comment on above: Performed By: #### L 501.4020, L501.9520, L100.0100, L503.6620, L501.2450, L500.4050, L506.0400 ####[facility] [address] [place], [address] Hematocrit (Bld) [Volume fraction] 31.7 % Low 37-47 [facility] Comment on above: Performed By: #### L 501.4020, L501.9520, L100.0100, L503.6620, L501.2450, L500.4050, L506.0400 ####[facility] [address] [place], [address] Hemoglobin (Bld) [Mass/Vol] 10.3 g/dL Low 12.0-15.0 [facility] Comment on above: Performed By: #### L 501.4020, L501.9520, L100.0100, L503.6620, L501.2450, L500.4050, L506.0400 ####[facility] [address] [place], [address] IG% 0.500 Normal 0.0-0.9 [facility] Comment on above: Result Comment: IG% - Immature Granulocytes (promyelocytes, myelocytes andmetamyelocytes) > 1% indicates that a LEFT SHIFT is Present. Performed By: #### L 501.4020, L501.9520, L100.0100, L503.6620, L501.2450, L500.4050, L506.0400 ####[facility] [address] [place], [address] Lymphocytes/100 WBC (Bld) 40.0 % Normal 19-41 [facility] Comment on above: Performed By: #### L 501.4020, L501.9520, L100.0100, L503.6620, L501.2450, L500.4050, L506.0400 ####[facility] [address] [place], [address] MCH (RBC) [Entitic mass] 31.0 pg Normal 27.0-32.0 [facility] Comment on above: Performed By: #### L 501.4020, L501.9520, L100.0100, L503.6620, L501.2450, L500.4050, L506.0400 ####[facility] [address] [place], [address] MCHC (RBC) [Mass/Vol] 32.5 g/dL Normal 32-36 [facility] Comment on above: Performed By: #### L 501.4020, L501.9520, L100.0100, L503.6620, L501.2450, L500.4050, L506.0400 ####[facility] [address] [place], [address] MCV (RBC) [Entitic vol] 95.5 fL Normal 81-99 [facility] Comment on above: Performed By: #### L 501.4020, L501.9520, L100.0100, L503.6620, L501.2450, L500.4050, L506.0400 ####[facility] [address] [place], [address] Monocytes/100 WBC (Bld) 9.3 % Normal 0-10 [facility] Comment on above: Performed By: #### L 501.4020, L501.9520, L100.0100, L503.6620, L501.2450, L500.4050, L506.0400 ####[facility] [address] [place], [address] Neutrophils/100 WBC (Bld) 46.9 % Low 47-70 [facility] Comment on above: Performed By: #### L 501.4020, L501.9520, L100.0100, L503.6620, L501.2450, L500.4050, L506.0400 ####[facility] [address] [place], [address] Nucleated RBC (Bld) [#/Vol] 0 10*3/uL Normal 0-5 [facility] Comment on above: Performed By: #### L 501.4020, L501.9520, L100.0100, L503.6620, L501.2450, L500.4050, L506.0400 ####[facility] [address] [place], [address] Platelet mean volume (Bld) [Entitic vol] 9.7 fL Normal 6.2-12.0 [facility] Comment on above: Performed By: #### L 501.4020, L501.9520, L100.0100, L503.6620, L501.2450, L500.4050, L506.0400 ####[facility] [address] [place], [address] Platelets (Bld) [#/Vol] 326 10*3/uL Normal 150-450 [facility] Comment on above: Performed By: #### L 501.4020, L501.9520, L100.0100, L503.6620, L501.2450, L500.4050, L506.0400 ####[facility] [address] [place], [address] RBC (Bld) [#/Vol] 3.32 10*6/uL Low 4.2-5.4 [facility] Comment on above: Performed By: #### L 501.4020, L501.9520, L100.0100, L503.6620, L501.2450, L500.4050, L506.0400 ####[facility] [address] [place], [address] RDW SD 47.4 fl High 35.1-43.9 [facility] Comment on above: Performed By: #### L 501.4020, L501.9520, L100.0100, L503.6620, L501.2450, L500.4050, L506.0400 ####[facility] [address] [place], [place], [address] WBC (Bld) [#/Vol] 8.0 10*3/uL Normal 4.4-11.0 [facility] Comment on above: Performed By: #### L 501.4020, L501.9520, L100.0100, L503.6620, L501.2450, L500.4050, L506.0400 ####[facility] [address] [place], [address] Chest PA and Lateralon 08-01 Chest PA and Lateral Normal [facility] Comprehensive Metabolic Prof ilon 08-01-2024 Albumin [Mass/Vol] 3.2 g/dL Normal 3.2-5.0 [facility] Comment on above: Order Comment: 'TROP ' Serial specimen #1, #2 or #3: 1 Performed By: #### L 501.4020, L501.9520, L100.0100, L503.6620, L501.2450, L500.4050, L506.0400 ####[facility] [address] [place], [address] Albumin/Globulin [Mass ratio] 0.9 {ratio} Normal 0.9-2.4 [facility] Comment on above: Order Comment: 'TROP ' Serial specimen #1, #2 or #3: 1 Performed By: #### L 501.4020, L501.9520, L100.0100, L503.6620, L501.2450, L500.4050, L506.0400 ####[facility] [address] [place], [address] ALK P 86 U/L Normal 45-117 [facility] Comment on above: Order Comment: 'TROP ' Serial specimen #1, #2 or #3: 1 Performed By: #### L 501.4020, L501.9520, L100.0100, L503.6620, L501.2450, L500.4050, L506.0400 ####[facility] [address] [place], [address] ALT [Catalytic activity/Vol] 20 U/L Normal 13-56 [facility] Comment on above: Order Comment: 'TROP ' Serial specimen #1, #2 or #3: 1 Performed By: #### L 501.4020, L501.9520, L100.0100, L503.6620, L501.2450, L500.4050, L506.0400 ####[facility] [address] [place], [address] AST [Catalytic activity/Vol] 26 U/L Normal 15-37 [facility] Comment on above: Order Comment: 'TROP ' Serial specimen #1, #2 or #3: 1 Performed By: #### L 501.4020, L501.9520, L100.0100, L503.6620, L501.2450, L500.4050, L506.0400 ####[facility] [address] [place], [address] Bilirubin [Mass/Vol] 0.40 mg/dL Normal 0.20-1.00 [facility] Comment on above: Order Comment: 'TROP ' Serial specimen #1, #2 or #3: 1 Result Comment: For patients on eltrombopag therapy, use of Dimension [place] TBIL is not recommended. Performed By: #### L 501.4020, L501.9520, L100.0100, L503.6620, L501.2450, L500.4050, L506.0400 ####[facility] [address] [place], [address] BUN/CRE 16.5 RATIO Normal 10-20 [facility] Comment on above: Order Comment: 'TROP ' Serial specimen #1, #2 or #3: 1 Performed By: #### L 501.4020, L501.9520, L100.0100, L503.6620, L501.2450, L500.4050, L506.0400 ####[facility] [address] [place], [address] CA,Total 8.4 mg/dL Low 8.5-10.1 [facility] Comment on above: Order Comment: 'TROP ' Serial specimen #1, #2 or #3: 1 Performed By: #### L 501.4020, L501.9520, L100.0100, L503.6620, L501.2450, L500.4050, L506.0400 ####[facility] [address] [place], [address] Chloride [Moles/Vol] 109 mmol/L High 98-107 [facility] Comment on above: Order Comment: 'TROP ' Serial specimen #1, #2 or #3: 1 Performed By: #### L 501.4020, L501.9520, L100.0100, L503.6620, L501.2450, L500.4050, L506.0400 ####[facility] [address] [place], [address] CO2 [Moles/Vol] 28.0 mmol/L Normal 21.0-32.0 [facility] Comment on above: Order Comment: 'TROP ' Serial specimen #1, #2 or #3: 1 Performed By: #### L 501.4020, L501.9520, L100.0100, L503.6620, L501.2450, L500.4050, L506.0400 ####[facility] [address] [place], [address] Creatinine [Mass/Vol] 1.03 mg/dL High 0.55-1.02 [facility] Comment on above: Order Comment: 'TROP ' Serial specimen #1, #2 or #3: 1 Result Comment: The validity of the calculated GFR GFRAA in patients over70 years has not been determined. Clinical correlation isessential. Performed By: #### L 501.4020, L501.9520, L100.0100, L503.6620, L501.2450, L500.4050, L506.0400 ####[facility] [address] [place], [place], [id number]) EST GFR - AA 68 mL/min Normal >60 [facility] Comment on above: Order Comment: 'TROP ' Serial specimen #1, #2 or #3: 1 Result Comment: Afri can Polish GFR Calc Performed By: #### L 501.4020, L501.9520, L100.0100, L503.6620, L501.2450, L500.4050, L506.0400 ####[facility] [address] [place], [address] GAP 2 Low 5-15 [facility] Comment on above: Order Comment: 'TROP ' Serial specimen #1, #2 or #3: 1 Performed By: #### L 501.4020, L501.9520, L100.0100, L503.6620, L501.2450, L500.4050, L506.0400 ####[facility] [address] [place], [address] GFR/1.73 sq M.predicted among non-blacks MDRD (S/P/Bld) [Vol rate/Area] 56 mL/min/{1.73_m2} Low >60 [facility] Comment on above: Order Comment: 'TROP ' Serial specimen #1, #2 or #3: 1 Result Comment: Non- GFR Calc Performed By: #### L 501.4020, L501.9520, L100.0100, L503.6620, L501.2450, L500.4050, L506.0400 ####[facility] [address] [place], [address] Globulin (S) [Mass/Vol] 3.6 g/dL Normal 2.2-4.2 [facility] Comment on above: Order Comment: 'TROP ' Serial specimen #1, #2 or #3: 1 Performed By: #### L 501.4020, L501.9520, L100.0100, L503.6620, L501.2450, L500.4050, L506.0400 ####[facility] [address] [place], [address] Glucose [Mass/Vol] 92 mg/dL Normal 74-106 [facility] Comment on above: Order Comment: 'TROP ' Serial specimen #1, #2 or #3: 1 Performed By: #### L 501.4020, L501.9520, L100.0100, L503.6620, L501.2450, L500.4050, L506.0400 ####[facility] [address] [place], [address] Potassium [Moles/Vol] 4.6 mmol/L Normal 3.5-5.1 [facility] Comment on above: Order Comment: 'TROP ' Serial specimen #1, #2 or #3: 1 Performed By: #### L 501.4020, L501.9520, L100.0100, L503.6620, L501.2450, L500.4050, L506.0400 ####[facility] [address] [place], [address] Sodium [Moles/Vol] 139 mmol/L Normal 136-145 [facility] Comment on above: Order Comment: 'TROP ' Serial specimen #1, #2 or #3: 1 Performed By: #### L 501.4020, L501.9520, L100.0100, L503.6620, L501.2450, L500.4050, L506.0400 ####[facility] [address] [place], [address] T PROT 6.8 g/dL Normal 6.4-8.2 [facility] Comment on above: Order Comment: 'TROP ' Serial specimen #1, #2 or #3: 1 Performed By: #### L 501.4020, L501.9520, L100.0100, L503.6620, L501.2450, L500.4050, L506.0400 ####[facility] [address] [place], [address] Urea nitrogen [Mass/Vol] 17 mg/dL Normal 7-18 [facility] Comment on above: Order Comment: 'TROP ' Serial specimen #1, #2 or #3: 1 Performed By: #### L 501.4020, L501.9520, L100.0100, L503.6620, L501.2450, L500.4050, L506.0400 ####[facility] [address] [place], [address] Emergency Department Summary on 08-01-2024 Emergency Department Summary Normal [facility] L501.4020on 08-01-2024 TROPONIN-I HS 3 pg/mL Normal 3.0-54.0 [facility] Comment on above: Order Comment: 'TROP ' Serial specimen #1, #2 or #3: 1 Result Comment: Plea se Note: New Test Units and Gender Specific Reference Ranges. For more information see Policy Stat Procedure [place] High Sensitivity Troponin (TNIH) and attachments. Performed By: #### L 501.4020, L501.9520, L100.0100, L503.6620, L501.2450, L500.4050, L506.0400 ####[facility] [address] [place], [address] Lipaseon 08-01-2024 Lipase [Catalytic activity/Vol] 28 U/L Normal 13-75 [facility] Comment on above: Order Comment: 'TROP ' Serial specimen #1, #2 or #3: 1 Result Comment: Michael arreola note:LIPASE revised reference range effective 22.New Lipase methodology. Expected to produce lower valuesthan the previous assay method.NEW Reference Range: 13 - 75 U/L Performed By: #### L 501.4020, L501.9520, L100.0100, L503.6620, L501.2450, L500.4050, L506.0400 ####[facility] [address] [place], [address] T4 Free Directon 08-01-2024 T4 FREE DIRECT 1.01 ng/dL Normal 0.76-1.46 [facility] Comment on above: Order Comment: 'TROP ' Serial specimen #1, #2 or #3: 1 Performed By: #### L 501.4020, L501.9520, L100.0100, L503.6620, L501.2450, L500.4050, L506.0400 ####[facility] [address] [place], [address] Thyroid Stim Hormone (TSH)on 08-01-2024 TSH 4.320 uIU/mL High 0.358-3.740 [facility] Comment on above: Order Comment: 'TROP ' Serial specimen #1, #2 or #3: 1 Performed By: #### L 501.4020, L501.9520, L100.0100, L503.6620, L501.2450, L500.4050, L506.0400 ####[facility] [address] [place], [address] Urinalysis, Completeon 08-01 EPI,SQUAMOUS 0-5 SEEN Normal 5-10 [facility] Comment on above: Order Comment: CLEAN CATCH Performed By: #### L 400.0001 ####[facility] [address] [place], [address] BACTERIA 0 SEEN Normal None Seen [facility] Comment on above: Order Comment: CLEAN CATCH Performed By: #### L 400.0001 ####[facility] [address] [place], [address] Mucus Ql (Urine sed) 0 SEEN Normal [facility] Comment on above: Order Comment: CLEAN CATCH Performed By: #### L 400.0001 ####[facility] [address] [place], [address] RBC 0 SEEN Normal 0-5 [facility] Comment on above: Order Comment: CLEAN CATCH Performed By: #### L 400.0001 ####[facility] [address] [place], [address] WBC 0 SEEN Normal 0-5 [facility] Comment on above: Order Comment: CLEAN CATCH Performed By: #### L 400.0001 ####[facility] [address] [place], [address] [facility] KAITLYN ESCOBAR I ([id number]) 1950 F Date Time Provider Department 07/30/24 [facility] During your visit today, we recorded the following information about you: Jasmin Garza 07/30/2024 11:38 AM Signed Patient calls today. Reason for Call: bilateral hand pain Patient calls the office today and states that she is having trouble picking up things. States it has gotten progessively worse over the past two weeks. From bending over, patient says she is now getting dizzy. It is both hands now and not just the right. 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 Asking for recommendations Please advise Thank you [phone] (home) [phone] (cell) Patient last appointment: 07/29/2024 Husam Nj MA 07/30/2024 1:37 PM Signed Called patient however no answer. Left message informing patient that Dr Dhaliwal said to go to the ER. LISA Junior Destiny 07/31/2024 4:47 PM Signed Patient had called in and was notified of Husam's message, she says that she is not going tonight but will go tomorrow. Allergies As of Date: 07/30/2024 Noted Allergy Reaction LATEX 06/22/2020 10 - Anaphylaxis ABILIFY (ARIPIPRAZOLE) 04/19/2022 14 - Other: See Comments Comments: Muscles couldn't get up CODEINE 06/22/2020 6 - Diarrhea COMPAZINE (PROCHLORPERAZINE) 06/22/2020 17 - Myalgia LEVAQUIN (LEVOFLOXACIN) 06/22/2020 6 - Diarrhea OMNICEF (CEFDINIR) 06/22/2020 6 - Diarrhea PREDNISONE 08/30/2021 8 - GI Upset PROPOXYPHENE 06/23/2015 16 - Unknown ELWUYNA-LKG-NGG REDUCTASE INHIBIT*06/22/2020 6 - Diarrhea 5 - Intolerance SULFA (SULFONAMIDE ANTIBIOTICS) 06/15/2020 14 - Other: See Comments Comments: Leg pain SHELLFISH CONTAINING PRODUCTS 11/29/2012 7 - Swelling Date Reviewed: 07/12/2024 Reviewed by: Kentrell Dhaliwal II, MD - Fully Assessed Reason for Visit: Patient Update [1234] Prescriptions as of 07/31/2024 - ALPRAZolam (XANAX) 1 mg tablet Take 1 tablet by mouth every 12 hours as needed for up to 30 days. - citalopram (CELEXA) 20 mg tablet Take 1 tablet by mouth once daily. - zolpidem (AMBIEN) 10 mg Take 1 tablet by mouth at bedtime as needed for up to 90 days. - ezetimibe (ZETIA) 10 mg tablet take 1 tablet by mouth once daily - naphazoline-pheniramin e eye drops (NAPHCON-A) 0.025-0.3 % ophthalmic solution Use 2 Drops in the left eye every 6 hours as needed. - ondansetron (ZOFRAN) 8 mg tablet Take 1 tablet by mouth every 8 hours as needed for nausea/vomiting. - albuterol HFA (PROVENTIL HFA, VENTOLIN HFA) 90 mcg/actuation inhaler Inhale 2 Puffs as instructed every 6 hours as needed for wheezing/shortness of breath. - promethazine (PHENERGAN) 25 mg tablet Take 1 tablet by mouth every 6 hours as needed. - levothyroxine (SYNTHROID) 50 mcg tablet Take 1 tablet by mouth once daily. - omeprazole (PRILOSEC) 40 mg capsule Take 1 capsule by mouth once daily. - busPIRone (BUSPAR) 15 mg tablet Take 0.5 tablets by mouth two times a day. - rOPINIRole (REQUIP) 0.5 mg tablet Take 1 tablet by mouth two times a day. - clotrimazole-betametha sone (LOTRISONE) cream Apply to affected area two times a day. - ferrous gluconate 236 mg (27 mg iron) tab Take 1 tablet by mouth once daily. - diphenoxylate-atropine (LOMOTIL) 2.5-0.025 mg per tablet Take 1 tablet by mouth four times a day as needed for up to 10 days. - warfarin (COUMADIN) 5 mg tablet Take 1 tablet by mouth once daily. - ondansetron orally disintegrating (ZOFRAN ODT) 4 mg disintegrating tablet Take 1 tablet by mouth every 8 hours as needed for nausea/vomiting. - ldvwjnzycl-lelewfeo-ap rmoterol (BREZTRI AEROSPHERE) 160-9-4.8 mcg/actuation HFA aerosol inhaler Inhale 2 Puffs as instructed two times a day. - simethicone 250 mg cap Take 1 capsule by mouth three times a day. - hyoscyamine SR (LEVBID) 0.375 mg 12 hr tablet Take 1 tablet by mouth two times a day. - dicyclomine (BENTYL) 20 mg tablet Take 1 tablet by mouth three times a day. - ondansetron (ZOFRAN) 4 mg tablet Take 1 tablet by mouth every 6 hours as needed. - traMADol (ULTRAM) 50 mg tablet Take 1 tablet by mouth every 6 hours as needed. - buPROPion XL (WELLBUTRIN XL) 150 mg 24 hr tablet Take 2 tablets by mouth once daily. - cyclobenzaprine (FLEXERIL) 10 mg tablet Take 1 tablet by mouth three times daily as needed. - docusate sodium (COLACE) 100 mg capsule Take 1 capsule by mouth twice daily. - SF 5000 PLUS 1.1 % dental cream Problem List As Of Date 07/30/2024 Noted Resolved Parkinson's disease (HCC) [G20.A1] 06/22/2020 04/17/2022 Irritable bowel syndrome with both constipation* 0 Subclinical hypothyroidism [E03.8] 06/22/2020 History of DVT (deep vein thrombosis) [Z86.718] 06/22/2020 Prediabetes [R73.03] 06/22/2020 GERD without esophagitis [K21. (more content not included)... [facility] 07-04-2024 [facility] Office Visit (FPUPDV ) KAITLYN ESCOBAR I ([id number]) 1950 F Date Time Provider Department 07/04/24 3:20 PM KENTRELL DHALIWAL II [facility]V During your visit today, we recorded the following information about you: Temperature Pulse Respiration Blood pressure 97.3 degrees 66/minute 16/minute 138/72 Weight Height 60.4 kg 1.549 m Kentrell Dhaliwal II, MD 07/12/2024 7:41 PM Signed Kentrell Dhaliwal II, MD [address], [place] [address] NOEMI Holden I Shawn is a 74 year old female who presents with Ear Problem (Pt states that a little over a week ago she woke up with severe ear pain, has taken the amoxicillin as Rx'ed, still having some bloody drainage. Pt has been using OTC Similasan Earache drops.). HPI Patient is in today for evaluation of pain in the left ear. She has been treated with topical treatment and oral antibiotics but she still having pain and discomfort and occasional bloody discharge from the ear so she went to come in and have it evaluated. Review of Systems Constitutional: Negative for activity change, appetite change, chills, diaphoresis, fatigue, fever and unexpected weight change. HENT: Positive for ear discharge and ear pain. Negative for congestion, dental problem, drooling, facial swelling, hearing loss, nosebleeds, postnasal drip, rhinorrhea, sinus pressure, sinus pain, sore throat, trouble swallowing and voice change. Eyes: Negative for discharge, redness and visual disturbance. Respiratory: Negative for apnea, cough, choking, chest tightness, shortness of breath, wheezing and stridor. Cardiovascular: Negative for chest pain, palpitations and leg swelling. Gastrointestinal: Negative for abdominal distention, abdominal pain, blood in stool, constipation, diarrhea, nausea and vomiting. Endocrine: Negative for cold intolerance, heat intolerance, polydipsia, polyphagia and polyuria. Genitourinary: Negative for decreased urine volume, difficulty urinating, dysuria, enuresis, frequency, hematuria and urgency. Musculoskeletal: Negative for arthralgias, gait problem and myalgias. Skin: Negative for color change, pallor, rash and wound. Allergic/Immunologic: Negative for environmental allergies. Neurological: Negative for dizziness, tremors, syncope, facial asymmetry, speech difficulty, weakness, light-headedness, numbness and headaches. Hematological: Negative for adenopathy. Does not bruise/bleed easily. Psychiatric/Behavioral : Negative for agitation, behavioral problems, confusion, decreased concentration, dysphoric mood, hallucinations, self-injury, sleep disturbance and suicidal ideas. The patient is not nervous/anxious and is not hyperactive. PAST MEDICAL HISTORY Diagnosis Date Anxiety and depression Diabetes (HCC) Drug-induced Parkinson's disease (HCC) GERD (gastroesophageal reflux disease) History of DVT (deep vein thrombosis) IBS (irritable bowel syndrome) Seizures (HCC) Small bowel obstruction (HCC) Tremor PAST SURGICAL HISTORY Procedure Laterality Date CHOLECYSTECTOMY HX COLON SURGERY HX HYSTERECTOMY HX ROTATOR CUFF REPAIR Left TONSILLECTOMY HX WRIST SURGERY HX Right Social History Tobacco Use Smoking status: Never Smokeless tobacco: Never Vaping Use Vaping status: Never Used Substance Use Topics Alcohol use: Not Currently Drug use: Never FAMILY HISTORY Problem Relation Age of Onset Emphysema Mother Heart disease Father The ROS, medical, surgical, family, and social history were reviewed by Kentrell Dhaliwal II, MD ALLERGIES Allergen Reactions Latex Anaphylaxis Abilify [Aripiprazo* Other: See Comments Muscles couldn't get up Codeine Diarrhea Compazine [Prochlor* Myalgia Levaquin [Levofloxa* Diarrhea Omnicef [Cefdinir] Diarrhea Prednisone GI Upset Propoxyphene Unknown Fpzptqh-Oej-Vpk Red* Diarrhea, Intolerance Sulfa (Sulfonamide * Other: See Comments Leg pain Shellfish Containin* Swelling Current Outpatient Medications Medication Sig zolpidem (AMBIEN) 10 mg Take 1 tablet by mouth at bedtime as needed for up to 90 days. ezetimibe (ZETIA) 10 mg tablet take 1 tablet by mouth once daily ALPRAZolam (XANAX) 1 mg tablet Take 1 tablet by mouth every 12 hours as needed for up to 30 days. naphazoline-pheniramin e eye drops (NAPHCON-A) 0.025-0.3 % ophthalmic solution Use 2 Drops in the left eye every 6 hours as needed. ondansetron (ZOFRAN) 8 mg tablet Take 1 tablet by mouth every 8 hours as needed for nausea/vomiting. albuterol HFA (PROVENTIL HFA, VENTOLIN HFA) 90 mcg/actuation inhaler Inhale 2 Puffs as instructed every 6 hours as needed for wheezing/shortness of breath. promethazine (PHENERGAN) 25 mg tablet Take 1 tablet by mouth every 6 hours as needed. citalopram (CELEXA) 20 mg tablet Take 1 tablet by mouth once daily. levothyroxine (SYNTHR (more content not included)... [facility] 06-25-2024 [facility] Telephone (FPUPDV) KAITLYN ESCOBAR I ([id number]) 1950 F Date Time Provider Department 06/25/24 KENTRELL DHALIWAL II [facility]V During your visit today, we recorded the following information about you: Kaylee Palomares 06/25/2024 10:00 AM Signed Patient calls today. Reason for Call: stating that her left eye has been burning, the corner of the eye is sore,her eye itches and has drainage. She denies any discoloration (red/pink)to the eye or being matted shut, onset 4-5 days. She is asking if there is something that she can take over the counter or something that you can prescribe to her for this? Please Advise Thank you [phone] (home) [phone] (cell) Patient last appointment: 06/14/2024 Kaylee PalomaresLelia Helm 06/25/2024 3:59 PM Addendum Patient called and wanted to add extreme ear pain and bleeding to her left ear and now can not hear out of it and now to the message below. Thank you. Kentrell Dhaliwal II, MD 06/25/2024 4:26 PM Signed Rx sent Husam Grant MA 06/25/2024 4:32 PM Signed Called patient and informed that Dr Dhaliwal sent in prescriptions for her. Patient stated that she was getting an ear ache and left ear felt clogged. Patient stated she took a hot shower to help unclog her left ear. Patient stated that he left ear started bleeding. Patient is wondering what she needs to do for her left ear bleeding? Please advise LISA Junior Robert Earl II, MD 06/25/2024 5:03 PM Signed Neosporin and Cotton ball. To ER if worse Husam Grant MA 06/26/2024 11:36 AM Signed Patient called into office due to her right ear hurting. Patient stated that she hs right ear infection and lymph nodes under her jaw are swollen. Patient stated right ear is not bleeding but wishes it would so she can get out of pain. Patient stated that she is in severe pain and has been taking tylenol. Informed patient to go to ER because she was not sure when she would be able to come into office. Informed that asa her niece gets home to have her take her to the ER. Patient stated that she will do that. LISA Junior Tanika 06/30/2024 11:34 AM Signed Patient called in today. She wanted to let Dr. Dhaliwal know she is doing much better. Thank you. Darron Cinthia 07/03/2024 8:52 AM Signed Patient called in today. She said that she took the 7 days worth of antibiotic. She said that her ear isn't hurting anymore but she is still having the bloody discharge. She said she is using ear drops that the pharmacist had recommended for her. She wondered if she should keep using them? She's just a little worried regarding the bloody discharge. She is having no other symptoms. Please advise, thank you. [phone] (home) [phone] (cell) Kentrell Dhaliwal II, MD 07/03/2024 6:44 PM Signed Someone needs to take a look. Until then, I would suggest a thin film of Neosporin on Q-tip gently to inside of ear canal twice day after gentle cleansing with 1/2 strength water and peroxide solution Dorothy Wallace MA 07/04/2024 8:12 AM Signed Left message for pt to call office back, call back number given. LISA Mcclendon Sabrina, MA 07/04/2024 8:17 AM Signed Patient returned office phone call. Patient scheduled appointment for today 07/03/2024 at 1520 Husam Grant MA Allergies As of Date: 06/25/2024 Noted Allergy Reaction LATEX 06/22/2020 10 - Anaphylaxis ABILIFY (ARIPIPRAZOLE) 04/19/2022 14 - Other: See Comments Comments: Muscles couldn't get up CODEINE 06/22/2020 6 - Diarrhea COMPAZINE (PROCHLORPERAZINE) 06/22/2020 17 - Myalgia LEVAQUIN (LEVOFLOXACIN) 06/22/2020 6 - Diarrhea OMNICEF (CEFDINIR) 06/22/2020 6 - Diarrhea PREDNISONE 08/30/2021 8 - GI Upset PROPOXYPHENE 06/23/2015 16 - Unknown IPBCZSL-UMI-POL REDUCTASE INHIBIT*06/22/2020 6 - Diarrhea 5 - Intolerance SULFA (SULFONAMIDE ANTIBIOTICS) 06/15/2020 14 - Other: See Comments Comments: Leg pain SHELLFISH CONTAINING PRODUCTS 11/29/2012 7 - Swelling Date Reviewed: 06/11/2024 Reviewed by: Susanne Uribe - Fully Assessed Reason for Visit: Medication Question [1478] Order(s):naphazoline-p heniramine eye drops (NAPHCON-A) 0.025-0.3 % ophthalmic solutionUse 2 Drops in the left eye every 6 hours as needed.Disp: 15 mLRfl: 0 [] amoxicillin (AMOXIL) 875 mg tabletTake 1 tablet by mouth two times a day for 7 days.Disp: 14 tabletRfl: 0 Prescriptions as of 07/04/2024 - ezetimibe (ZETIA) 10 mg tablet take 1 tablet by mouth once daily - ALPRAZolam (XANAX) 1 mg tablet Take 1 tablet by mouth every 12 hours as needed for up to 30 days. - naphazoline-pheniramin e eye drops (NAPHCON-A) 0.025-0.3 % ophthalmic solution Use 2 Drops in the left eye every 6 hours as needed. - ondansetron (ZOFRAN) 8 mg tablet Take 1 tablet by mouth every 8 hours as needed for nausea/vomiting. (more content not included)... [facility] 06-13-2024 [facility] Telephone (FPUPDV) KAITLYN ESCOBAR I ([id number]) 1950 F Date Time Provider Department 06/13/24 KENTRELL DHALIWAL II During your visit today, we recorded the following information about you: Husam Grant MA 06/13/2024 9:03 AM Signed ----- Message from Kentrell Dhaliwal MD sent at 06/12/2024 5:28 PM EDT ----- Labs are acceptable ranges. Recheck labs in 6 months or sooner if needed. Husam Grant MA 06/13/2024 9:04 AM Signed Called patient however no answer. Left message informing patient that labs are in acceptable ranges. Informed to recheck in 6 months or sooner if needed. Husam Grant MA Allergies As of Date: 06/13/2024 Noted Allergy Reaction LATEX 06/22/2020 10 - Anaphylaxis ABILIFY (ARIPIPRAZOLE) 04/19/2022 14 - Other: See Comments Comments: Muscles couldn't get up CODEINE 06/22/2020 6 - Diarrhea COMPAZINE (PROCHLORPERAZINE) 06/22/2020 17 - Myalgia LEVAQUIN (LEVOFLOXACIN) 06/22/2020 6 - Diarrhea OMNICEF (CEFDINIR) 06/22/2020 6 - Diarrhea PREDNISONE 08/30/2021 8 - GI Upset PROPOXYPHENE 06/23/2015 16 - Unknown HFWWCJN-DAD-LBR REDUCTASE INHIBIT*06/22/2020 6 - Diarrhea 5 - Intolerance SULFA (SULFONAMIDE ANTIBIOTICS) 06/15/2020 14 - Other: See Comments Comments: Leg pain SHELLFISH CONTAINING PRODUCTS 11/29/2012 7 - Swelling Date Reviewed: 06/11/2024 Reviewed by: Susanne Uribe - Fully Assessed Reason for Visit: Results [95] Prescriptions as of 06/13/2024 - promethazine (PHENERGAN) 25 mg tablet Take 1 tablet by mouth every 6 hours as needed. - citalopram (CELEXA) 20 mg tablet Take 1 tablet by mouth once daily. - ALPRAZolam (XANAX) 1 mg tablet Take 1 tablet by mouth every 12 hours as needed for up to 30 days. - levothyroxine (SYNTHROID) 50 mcg tablet Take 1 tablet by mouth once daily. - omeprazole (PRILOSEC) 40 mg capsule Take 1 capsule by mouth once daily. - zolpidem (AMBIEN) 10 mg Take 1 tablet by mouth at bedtime as neede for Insomnia - busPIRone (BUSPAR) 15 mg tablet Take 0.5 tablets by mouth two times a day. - rOPINIRole (REQUIP) 0.5 mg tablet Take 1 tablet by mouth two times a day. - clotrimazole-betametha sone (LOTRISONE) cream Apply to affected area two times a day. - ferrous gluconate 236 mg (27 mg iron) tab Take 1 tablet by mouth once daily. - diphenoxylate-atropine (LOMOTIL) 2.5-0.025 mg per tablet Take 1 tablet by mouth four times a day as needed for up to 10 days. - warfarin (COUMADIN) 5 mg tablet Take 1 tablet by mouth once daily. - ondansetron (ZOFRAN) 8 mg tablet Take 1 tablet by mouth every 8 hours as needed for nausea/vomiting. - ondansetron orally disintegrating (ZOFRAN ODT) 4 mg disintegrating tablet Take 1 tablet by mouth every 8 hours as needed for nausea/vomiting. - ylsxwwuvdg-zurnceqr-ur rmoterol (BREZTRI AEROSPHERE) 160-9-4.8 mcg/actuation HFA aerosol inhaler Inhale 2 Puffs as instructed two times a day. - albuterol HFA (PROVENTIL HFA, VENTOLIN HFA) 90 mcg/actuation inhaler Inhale 2 Puffs as instructed every 6 hours as needed for wheezing/shortness of breath. - simethicone 250 mg cap Take 1 capsule by mouth three times a day. - hyoscyamine SR (LEVBID) 0.375 mg 12 hr tablet Take 1 tablet by mouth two times a day. - dicyclomine (BENTYL) 20 mg tablet Take 1 tablet by mouth three times a day. - ondansetron (ZOFRAN) 4 mg tablet Take 1 tablet by mouth every 6 hours as needed. - traMADol (ULTRAM) 50 mg tablet Take 1 tablet by mouth every 6 hours as needed. - buPROPion XL (WELLBUTRIN XL) 150 mg 24 hr tablet Take 2 tablets by mouth once daily. - ezetimibe (ZETIA) 10 mg tablet Take 1 tablet by mouth once daily. - cyclobenzaprine (FLEXERIL) 10 mg tablet Take 1 tablet by mouth three times daily as needed. - docusate sodium (COLACE) 100 mg capsule Take 1 capsule by mouth twice daily. - SF 5000 PLUS 1.1 % dental cream Problem List As Of Date 06/13/2024 Noted Resolved Parkinson's disease (HCC) [G20.A1] 06/22/2020 04/17/2022 Irritable bowel syndrome with both constipation* 0 Subclinical hypothyroidism [E03.8] 06/22/2020 History of DVT (deep vein thrombosis) [Z86.718] 06/22/2020 Prediabetes [R73.03] 06/22/2020 GERD without esophagitis [K21.9] 06/22/2020 04/17/2022 Mild episode of recurrent major depressive diso*06/22/2020 MOODY (generalized anxiety disorder) [F41.1] 06/22/2020 Chronic insomnia [F51.04] 06/22/2020 GERD (gastroesophageal reflux disease) [K21.9] Drug-induced Parkinson's disease (HCC) [G21.19] Diabetes (HCC) [E11.9] Anxiety and depression [F41.9, F32.A] Hypothyroidism, acquired [E03.9] 08/30/2021 Small bowel obstruction (HCC) [K56.609] 03/18/2023 03/20/2023 Severe protein-calorie malnutrition (HCC) [E43] 03/19/2023 SBO (small bowel obstruction) (HCC) [K56.609] 04/01/2023 04/05/2023 Encounter Status:Closed by HUSAM GRANT on 06/13/24 Normal [facility] 25(OH)D3 SerPl-mCncon 2023 25-hydroxyvitamin D3 [Mass/Vol] 31.5 ng/mL Normal 31.0-80.0 [facility] Comment on above: Order Comment: Speci men Type: BLOOD SPECIMENOrdering Facility: [facility] Address: [address] [place] [address] Performed By: #### 2 4321-2, 1988-11 ####[facility] LABCLIA [id number] [place] [address] [place] 25-hydroxyvitamin D3 [Mass/V ol]on 06-11-2024 Interpretation and review of laboratory results Normal [facility] Basic metabolic 2000 panelon 06-11-2024 Anion gap [Moles/Vol] 12 mmol/L 8 - 15 mmol/L [facility] Calcium [Mass/Vol] 9.5 mg/dL 8.5 - 10. 2 mg/dL [facility] Chloride [Moles/Vol] 104 mmol/L 98 - 10 7 mmol/L [facility] CO2 [Moles/Vol] 23 mmol/L 22 - 30 mmol/L [facility] Creatinine [Mass/Vol] 1.13 mg/dL High 0.58 - 0.96 mg/dL [facility] GFR/1.73 sq M.predicted among non-blacks MDRD (S/P/Bld) [Vol rate/Area] 51 mL/min/{1.73_m2} Low - PINF [facility] Comment on above: Estimated Glomerular Filtration Rate (eGFR) is calculated using the 2020 CKD-EPI creatinine equation. This equation utilizes serum creatinine, sex, and age as parameters. The creatinine assay has traceable calibration to isotope dilution-mass spectrometry. Refer to KDIGO guidelines for clinical interpretation. In patients with unstable renal function, e.g. those with acute kidney injury, the eGFR may not accurately reflect actual GFR. Glucose [Mass/Vol] 78 mg/dL 74 - 99 mg/dL [facility] Comment on above: The [place] Diab[employer] s Association (ADA) provides guidance for cutoff values for fasting glucose and random glucose. The ADA defines fasting as no caloric intake for at least 8 hours. Fasting plasma glucose results between 100 to 125 mg/dL indicate increased risk for diabetes (prediabetes). Fasting plasma glucose results greater than or equal to 126 mg/dL meet the criteria for diagnosis of diabetes. In the absence of unequivocal hyperglycemia, results should be confirmed by repeat testing. In a patient with classic symptoms of hyperglycemia or hyperglycemic crisis, random plasma glucose results greater than or equal to 200 mg/dL meet the criteria for diagnosis of diabetes. Reference: Standards of Medical Care in Diabetes 2016, [place] Diabetes Association. Diabetes Care. 2016.39(Suppl 1). Interpretation and review of laboratory results Abnormal [facility] Potassium [Moles/Vol] 4.5 mmol/L 3.7 - 5.1 mmol/L [facility] Sodium [Moles/Vol] 139 mmol/L 136 - 144 mmol/L [facility] Urea nitrogen [Mass/Vol] 16 mg/dL 7 - 21 mg/dL [facility] Anion gap [Moles/Vol] 12 mmol/L Normal 8-15 [facility] Comment on above: Order Comment: Speci men Type: BLOOD SPECIMENOrdering Facility: [facility] Address: [address] [place] [id number] Performed By: #### 2 4320-10, 1988-11 ####[facility] LABIA [id number] [place] [address] [place] Calcium [Mass/Vol] 9.5 mg/dL Normal 8.5-10.2 [facility] Comment on above: Order Comment: Speci men Type: BLOOD SPECIMENOrdering Facility: [facility] Address: [address] [place], [place] [address] Performed By: #### 2 4320-10, 1988-11 ####[facility] LABIA [id number] [place] [address] [place] Chloride [Moles/Vol] 104 mmol/L Normal 98-107 [facility] Comment on above: Order Comment: Speci men Type: BLOOD SPECIMENOrdering Facility: [facility] Address: [address] [place] [address] Performed By: #### 2 4320-10, 1988-11 ####[facility] LABIA [id number] [place] [address] [place] CO2 [Moles/Vol] 23 mmol/L Normal 22-30 [facility] Comment on above: Order Comment: Speci men Type: BLOOD SPECIMENOrdering Facility: [facility] Address: [address] [place] [id number] Performed By: #### 2 4320-10, 1988-11 ####[facility] LABIA [id number] [place] [address] [place] Creatinine [Mass/Vol] 1.13 mg/dL High 0.58-0.96 [facility] Comment on above: Order Comment: Speci men Type: BLOOD SPECIMENOrdering Facility: [facility] Address: [address] [place] [place] [id number] Performed By: #### 2 4320-10, 1988-11 ####[facility] LABIA [id number] [place] [address] [place] Creatinine and Glomerular filtration rate.predicted panel (S/P/Bld) 51 mL/min/1.73m??? Low >=60 [facility] Comment on above: Order Comment: Sam talley Type: BLOOD SPECIMENOrdering Facility: [facility] Address: [address] [place] [address] Result Comment: [place] mated Glomerular Filtration Rate (eGFR) is calculated using the 2020 CKD-EPI creatinine equation. This equation utilizes serum creatinine, sex, and age as parameters. The creatinine assay has traceable calibration to isotope dilution-mass spectrometry. Refer to KDIGO guidelines for clinical interpretation. In patients with unstable renal function, e.g. those with acute kidney injury, the eGFR may not accurately reflect actual GFR. Performed By: #### 2 4320-10, 1988-11 ####[facility] LABCLIA [id number] [place] [address] [place] Glucose [Mass/Vol] 78 mg/dL Normal 74-99 [facility] Comment on above: Order Comment: Sam talley Type: BLOOD SPECIMENOrdering Facility: [facility] Address: [address] [place] [address] Result Comment: The [place] Diabetes Association (ADA) provides guidance for cutoff values for fasting glucose and random glucose. The ADA defines fasting as no caloric intake for at least 8 hours. Fasting plasma glucose results between 100 to 125 mg/dL indicate increased risk for diabetes (prediabetes). Fasting plasma glucose results greater than or equal to 126 mg/dL meet the criteria for diagnosis of diabetes. In the absence of unequivocal hyperglycemia, results should be confirmed by repeat testing. In a patient with classic symptoms of hyperglycemia or hyperglycemic crisis, random plasma glucose results greater than or equal to 200 mg/dL meet the criteria for diagnosis of diabetes. Reference: Standards of Medical Care in Diabetes 2016, [place] Diabetes Association. Diabetes Care. 2016.39(Suppl 1). Performed By: #### 2 4320-10, 1988-11 ####[facility] LABCLIA [id number] [place] [address] [place] Potassium [Moles/Vol] 4.5 mmol/L Normal 3.7-5.1 [facility] Comment on above: Order Comment: Speci men Type: BLOOD SPECIMENOrdering Facility: [facility] Address: [address] [place], [place] [address] Performed By: #### 2 4320-10, 1988-11 ####[facility] LABIA [id number] [place] [address] [place] Sodium [Moles/Vol] 139 mmol/L Normal 136-144 [facility] Comment on above: Order Comment: Speci men Type: BLOOD SPECIMENOrdering Facility: [facility] Address: [address] [place] [address] Performed By: #### 2 4320-10, 1988-11 ####[facility] LABIA [id number] [place] [address] [place] Urea nitrogen [Mass/Vol] 16 mg/dL Normal 7-21 [facility] Comment on above: Order Comment: Speci men Type: BLOOD SPECIMENOrdering Facility: [facility] Address: [address] [place] [address] Performed By: #### 2 4320-10, 1988-11 ####[facility] LABIA [id number] [place] [address] [place] CBC panel Auto (Bld)on 06-11 Erythrocyte distribution width (RBC) [Ratio] 14.6 % 11.5 - 15.0 % [facility] Hematocrit (Bld) [Volume fraction] 37.1 % 36.0 - 46.0 % [facility] Hemoglobin (Bld) [Mass/Vol] 12.2 g/dL 11.5 - 15.5 g/dL [facility] Interpretation and review of laboratory results Normal [facility] MCH (RBC) [Entitic mass] 30.7 pg 26.0 - 34.0 pg [facility] MCHC (RBC) [Mass/Vol] 32.9 g/dL 30.5 - 36.0 g/dL [facility] MCV (RBC) [Entitic vol] 93.2 fL 80.0 - 100.0 fL [facility] Nucleated RBC (Bld) [#/Vol] NINF [facility] Platelet mean volume (Bld) [Entitic vol] 9.7 fL 9.0 - 12.7 fL [facility] Platelets (Bld) [#/Vol] 385 10*3/uL [facility] RBC (Bld) [#/Vol] 3.98 10*6/uL 3.90 - 5.2 0 m/uL [facility] WBC (Bld) [#/Vol] 8.86 10*3/uL [facility] Erythrocyte distribution width (RBC) [Ratio] 14.6 % Normal 11.5-15.0 [facility] Comment on above: Order Comment: Speci men Type: BLOOD SPECIMENOrdering Facility: [facility] Address: [address] [place] [address] Performed By: #### 5 8410-2 ####[facility] [id number] [place] [address] [place] [facility] Hematocrit (Bld) [Volume fraction] 37.1 % Normal 36.0-46.0 [facility] Comment on above: Order Comment: Speci men Type: BLOOD SPECIMENOrdering Facility: [facility] Address: [address] [place] [address] Performed By: #### 5 8410-2 ####[facility] [id number] [place] [address] [place] Hemoglobin (Bld) [Mass/Vol] 12.2 g/dL Normal 11.5-15.5 [facility] Comment on above: Order Comment: Speci men Type: BLOOD SPECIMENOrdering Facility: [facility] Address: [address] [place] [address] Performed By: #### 5 8410-2 ####[facility] [id number] [place] [address] [place] MCH (RBC) [Entitic mass] 30.7 pg Normal 26.0-34.0 [facility] Comment on above: Order Comment: Speci men Type: BLOOD SPECIMENOrdering Facility: [facility] Address: [address] [place] [address] Performed By: #### 5 8410-2 ####[facility] [id number] [place] [address] [place] MCHC (RBC) [Mass/Vol] 32.9 g/dL Normal 30.5-36.0 [facility] Comment on above: Order Comment: Speci men Type: BLOOD SPECIMENOrdering Facility: [facility] Address: [address] [place] [address] Performed By: #### 5 8410-2 ####[facility] [id number] [address] [place] MCV (RBC) [Entitic vol] 93.2 fL Normal 80.0-100.0 [facility] Comment on above: Order Comment: Speci men Type: BLOOD SPECIMENOrdering Facility: [facility] Address: [address] [place] [address] Performed By: #### 5 8410-2 ####[facility] [id number] [address] [place] Nucleated RBC (Bld) [#/Vol] 10*3/uL Normal <0.01 [facility] Comment on above: Order Comment: Speci men Type: BLOOD SPECIMENOrdering Facility: [facility] Address: [address] [place] [address] Performed By: #### 5 8410-2 ####[facility] [id number] [address] [place] Platelet mean volume (Bld) [Entitic vol] 9.7 fL Normal 9.0-12.7 [facility] Comment on above: Order Comment: Speci men Type: BLOOD SPECIMENOrdering Facility: [facility] Address: [address] [place] [address] Performed By: #### 5 8410-2 ####[facility] [id number] [place] [address] [place] Platelets (Bld) [#/Vol] 385 10*3/uL Normal 150-400 [facility] Comment on above: Order Comment: Speci men Type: BLOOD SPECIMENOrdering Facility: [facility] Address: [address] [place] [address] Performed By: #### 5 8410-2 ####[facility] LABIA [id number] [place] [address] [place] RBC (Bld) [#/Vol] 3.98 10*6/uL Normal 3.90-5.20 [facility] Comment on above: Order Comment: Speci men Type: BLOOD SPECIMENOrdering Facility: [facility] Address: [address] [place] [address] Performed By: #### 5 8410-2 ####[facility] LABIA [id number] [place] [address] [facility] WBC (Bld) [#/Vol] 8.86 10*3/uL Normal 3.70-11.00 [facility] Comment on above: Order Comment: Speci men Type: BLOOD SPECIMENOrdering Facility: [facility] Address: [address] [place] [address] Performed By: #### 5 8410-2 ####[facility] [id number] [address] CNOVon 06-11-2024 [facility] Office Visit (FPUPDV ) CHINO ESCOBARA Franny ([id number]) 1950 F Date Time Provider Department 06/11/24 10:00 AM KENTRELL DHALIWAL II FPUPDV During your visit today, we recorded the following information about you: Temperature Pulse Blood pressure Weight 97.3 degrees 90/minute 158/80 57.8 kg Height 1.549 m Kentrell Dhaliwal II, MD 06/14/2024 9:10 PM Signed Kentrell Dhaliwal II, MD [address], [place] [address] SUBJECTIVE Kaitlyn Blanton Shawn is a 74 year old female who presents with Follow Up (3 month follow up. Pt states that she is having breathing issues. Using all of her inhalers. Pt stated that the time is coming that she will need [facility]. Pt needing refills. Pt would like to discuss antidepressant. ). HPI The patient is in today to follow-up her chronic problems. She states she is still under a lot of stress with her daughter having issues with alcoholism and this does tend to flareup her gastrointestinal issues when she receives bad news. She would like to have some refills on medication to use as needed and she is due for some routine blood work. Review of Systems Constitutional: Negative for activity change, appetite change, chills, diaphoresis, fatigue, fever and unexpected weight change. HENT: Negative for congestion, dental problem, ear pain, hearing loss, nosebleeds, postnasal drip, rhinorrhea, sinus pressure, sinus pain, sore throat, trouble swallowing and voice change. Eyes: Negative for discharge, redness and visual disturbance. Respiratory: Negative for apnea, cough, choking, chest tightness, shortness of breath, wheezing and stridor. Cardiovascular: Negative for chest pain, palpitations and leg swelling. Gastrointestinal: Negative for abdominal distention, abdominal pain, blood in stool, constipation, diarrhea, nausea and vomiting. Endocrine: Negative for cold intolerance, heat intolerance, polydipsia, polyphagia and polyuria. Genitourinary: Negative for decreased urine volume, difficulty urinating, dysuria, enuresis, frequency, hematuria and urgency. Musculoskeletal: Negative for arthralgias, gait problem and myalgias. Skin: Negative for color change, pallor, rash and wound. Allergic/Immunologic: Negative for environmental allergies. Neurological: Negative for dizziness, tremors, syncope, facial asymmetry, speech difficulty, weakness, light-headedness, numbness and headaches. Hematological: Negative for adenopathy. Does not bruise/bleed easily. Psychiatric/Behavioral : Negative for agitation, behavioral problems, confusion, decreased concentration, dysphoric mood, hallucinations, self-injury, sleep disturbance and suicidal ideas. The patient is not nervous/anxious and is not hyperactive. PAST MEDICAL HISTORY Diagnosis Date Anxiety and depression Diabetes (HCC) Drug-induced Parkinson's disease (HCC) GERD (gastroesophageal reflux disease) History of DVT (deep vein thrombosis) IBS (irritable bowel syndrome) Seizures (HCC) Small bowel obstruction (HCC) Tremor PAST SURGICAL HISTORY Procedure Laterality Date CHOLECYSTECTOMY HX COLON SURGERY HX HYSTERECTOMY HX ROTATOR CUFF REPAIR Left TONSILLECTOMY HX WRIST SURGERY HX Right Social History Tobacco Use Smoking status: Never Smokeless tobacco: Never Vaping Use Vaping status: Never Used Substance Use Topics Alcohol use: Not Currently Drug use: Never FAMILY HISTORY Problem Relation Age of Onset Emphysema Mother Heart disease Father The ROS, medical, surgical, family, and social history were reviewed by Kentrell Dhaliwal II, MD ALLERGIES Allergen Reactions Latex Anaphylaxis Abilify [Aripiprazo* Other: See Comments Muscles couldn't get up Codeine Diarrhea Compazine [Prochlor* Myalgia Levaquin [Levofloxa* Diarrhea Omnicef [Cefdinir] Diarrhea Prednisone GI Upset Propoxyphene Unknown Udxtogj-Hrx-Hld Red* Diarrhea, Intolerance Sulfa (Sulfonamide * Other: See Comments Leg pain Shellfish Containin* Swelling Current Outpatient Medications Medication Sig ALPRAZolam (XANAX) 1 mg tablet Take 1 tablet by mouth every 12 hours as needed for up to 30 days. levothyroxine (SYNTHROID) 50 mcg tablet Take 1 tablet by mouth once daily. omeprazole (PRILOSEC) 40 mg capsule Take 1 capsule by mouth once daily. zolpidem (AMBIEN) 10 mg Take 1 tablet by mouth at bedtime as neede for Insomnia busPIRone (BUSPAR) 15 mg tablet Take 0.5 tablets by mouth two times a day. rOPINIRole (REQUIP) 0.5 mg tablet Take 1 tablet by mouth two times a day. clotrimazole-betametha sone (LOTRISONE) cream Apply to affected area two times a day. ferrous gluconate 236 mg (27 mg iron) tab Take 1 tablet by mouth once daily. diphenoxylate-atropine (LOMOTIL) 2.5-0.025 mg per tablet Take 1 tablet by mouth four times a day as needed for up to 10 days. (more content not included)... Normal [facility] Hepatic function 2000 panelO rdered By: Rosibel Chahal on 06-11-2024 Albumin [Mass/Vol] 4.1 g/dL 3.9 - 4.9 g/dL [facility] ALP [Catalytic activity/Vol] 91 U/L 34 - 123 U/L [facility] ALT [Catalytic activity/Vol] 20 U/L 7 - 38 U/L [facility] AST [Catalytic activity/Vol] 27 U/L 13 - 35 U/L [facility] Bilirubin [Mass/Vol] 0.3 mg/dL 0.2 - 1 .3 mg/dL [facility] Bilirubin.conjugated [Mass/Vol] mg/dL NINF - 0.2 mg/dL [facility] Interpretation and review of laboratory results Normal [facility] Protein [Mass/Vol] 7.2 g/dL 6.3 - 8.0 g/dL [facility] Hepatic function 2000 panelo n 06-11-2024 Albumin [Mass/Vol] 4.1 g/dL Normal 3.9-4.9 [facility] Comment on above: Order Comment: Speci men Type: BLOOD SPECIMENOrdering Facility: [facility] Address: [address] [place] [address] Performed By: #### 2 4325-3, 63865-5, 3015-3, 38196-5 ####[facility] LABIA [id number] [place] [address] [place] ALP [Catalytic activity/Vol] 91 U/L Normal 34-123 [facility] Comment on above: Order Comment: Speci men Type: BLOOD SPECIMENOrdering Facility: [facility] Address: [address] [place] [address] Performed By: #### 2 4325-3, 99134-4, 3015-3, 99410-6 ####[facility] LABIA [id number] [place] [address] [place] [facility] ALT [Catalytic activity/Vol] 20 U/L Normal 7-38 [facility] Comment on above: Order Comment: Speci men Type: BLOOD SPECIMENOrdering Facility: [facility] Address: [address] [place] [address] Performed By: #### 2 4325-3, 36215-9, 3015-3, 33375-8 ####[facility] LABCLIA [id number] [place] [address] [place] AST [Catalytic activity/Vol] 27 U/L Normal 13-35 [facility] Comment on above: Order Comment: Speci men Type: BLOOD SPECIMENOrdering Facility: [facility] Address: [address] [place], [place] [address] Performed By: #### 2 4325-3, 69728-4, 6-3, 20344-9 ####[facility] [id number] [place] [address] [place] Bilirubin [Mass/Vol] 0.3 mg/dL Normal 0.2-1.3 [facility] Comment on above: Order Comment: Speci men Type: BLOOD SPECIMENOrdering Facility: [facility] Address: [address] [place], [place] [address] Performed By: #### 2 4325-3, 28299-0, 6-3, 05379-2 ####[facility] [id number] [place] [address] [place] [facility] Bilirubin.conjugated [Mass/Vol] mg/dL Normal <0.2 [facility] Comment on above: Order Comment: Speci men Type: BLOOD SPECIMENOrdering Facility: [facility] Address: [address] [place] [address] Performed By: #### 2 4325-3, 21353-7, 6-3, 98528-1 ####[facility] [id number] [place] [address] [place] Protein [Mass/Vol] 7.2 g/dL Normal 6.3-8.0 [facility] Comment on above: Order Comment: Speci men Type: BLOOD SPECIMENOrdering Facility: [facility] Address: [address] [place], [place] [address] Performed By: #### 2 4325-3, 82496-3, 3016-3, 81491-4 ####[facility] LABIA [id number] [place] [address] [place] Iron and Iron binding capaci ty panelon 06-11-2024 Interpretation and review of laboratory results Abnormal [facility] Iron [Mass/Vol] 45 ug/dL 41 - 186 ug/dL [facility] Iron binding capacity [Mass/Vol] 305 ug/dL 232 - 386 ug/dL [facility] Iron/TIBC [Molar ratio] 14.8 % Low 15.0 - 57.0 % [facility] Iron [Mass/Vol] 45 ug/dL Normal 41-186 [facility] Comment on above: Order Comment: Speci men Type: BLOOD SPECIMENOrdering Facility: [facility] Address: [address] [place] [address] Performed By: #### 2 4325-3, 76247-9, 3016-3, 52157-4 ####[facility] [id number] [place] [address] [place] Iron binding capacity [Mass/Vol] 305 ug/dL Normal 232-386 [facility] Comment on above: Order Comment: Speci men Type: BLOOD SPECIMENOrdering Facility: [facility] Address: [address] [place] [address] Performed By: #### 2 4325-3, 57360-7, 3016-3, 28719-0 ####[facility] [id number] [place] [address] [place] Iron/TIBC [Molar ratio] 14.8 % Low 15.0-57.0 U [facility] Comment on above: Order Comment: Speci men Type: BLOOD SPECIMENOrdering Facility: [facility] Address: [address] [place], [place] [address] Performed By: #### 2 4325-3, 53495-4, 3016-3, 16484-7 ####[facility] [id number] [place] [address] [place] MAGNESIUMon 06-11-2024 Magnesium [Mass/Vol] 2.0 mg/dL 1.7 - 2 .3 mg/dL [facility] Magnesium SerPl-mCncon 06-11 Magnesium [Mass/Vol] 2.0 mg/dL Normal 1.7-2.3 [facility] Comment on above: Order Comment: Speci men Type: BLOOD SPECIMENOrdering Facility: [facility] Address: [address] [place] [address] Performed By: #### 2 4325-3, 91531-7, 3016-3, 44634-8 ####[facility] LABCLIA [id number] [place] [address] [facility] OF [place] No Panel Informationon 06-11 Interpretation and review of laboratory results Normal [facility] THYROID STIMULATING HORMONEo n 06-11-2024 TSH Qn 3.370 m[IU]/L [facility] TSH SerPl-aCncon 06-11-2024 TSH Qn 3.370 m[IU]/L Normal 0.270-4.200 [facility] Comment on above: Order Comment: Speci men Type: BLOOD SPECIMENOrdering Facility: [facility] Address: [address] [place] [address] Performed By: #### 2 4325-3, 31236-6, 3016-3, 27759-1 ####[facility] LABCLIA [id number] [place] [address] [facility] VITAMIN D 25 HYDROXYon 06-11 25-hydroxyvitamin D3 [Mass/Vol] 31.5 ng/mL 31.0 - 80.0 ng/mL [facility] CNPNon 05-07-2024 CNPN Telephone (FPUPDV) KAITLYN ESCOBAR I ([id number]) 1950 F Date Time Provider Department 05/07/24 KENTRELL DHALIWAL II FPUPDV During your visit today, we recorded the following information about you: Kavya Argueta 05/07/2024 8:54 AM Signed Patients daughter Rosario called today. Reason for Call: stated she has been calling her Mom to make sure she got up for her appointment and didn't get an answer. Rosario stated her Mom may have left her phone at home and is requesting a call back when patient gets to office . Patients daughter lives 12 hours away. Appointment is today at 9:20 am Rosario call back [phone] Thank you [phone] (home) [phone] (cell) Patient last appointment: 05/01/2024 Lelia Ho 05/07/2024 9:37 AM Signed Daughter Rosario called back to see if patient has checked in, still can't get a hold of patient. Per Ulises at office she has not. Daughter advised. Patience Choi 05/07/2024 10:36 AM Signed RESCHEDULED PATIENT TO 06/11/24 @ 10:00 AM, LEFT MESSAGE ON PATIENT'S VOICEMAIL TO ADVISE Jasmin Rubio 05/07/2024 2:05 PM Signed Patient returned call to the office. She was advised of appointment date and time. She said she was all ready for appointment today and she sat down on her bed and fell back to sleep. Allergies As of Date: 05/07/2024 Noted Allergy Reaction LATEX 06/22/2020 10 - Anaphylaxis ABILIFY (ARIPIPRAZOLE) 04/19/2022 14 - Other: See Comments Comments: Muscles couldn't get up CODEINE 06/22/2020 6 - Diarrhea COMPAZINE (PROCHLORPERAZINE) 06/22/2020 17 - Myalgia LEVAQUIN (LEVOFLOXACIN) 06/22/2020 6 - Diarrhea OMNICEF (CEFDINIR) 06/22/2020 6 - Diarrhea PREDNISONE 08/30/2021 8 - GI Upset PROPOXYPHENE 06/23/2015 16 - Unknown [id number]-[id number] REDUCTASE INHIBIT*06/22/2020 6 - Diarrhea 5 - Intolerance SULFA (SULFONAMIDE ANTIBIOTICS) 06/15/2020 14 - Other: See Comments Comments: Leg pain SHELLFISH CONTAINING PRODUCTS 11/29/2012 7 - Swelling Date Reviewed: 01/13/2024 Reviewed by: Kentrell Dhaliwal II, MD - Fully Assessed Reason for Visit: requesting call back [Other] Prescriptions as of 05/07/2024 - ALPRAZolam (XANAX) 1 mg tablet Take 1 tablet by mouth every 12 hours as needed for up to 30 days. - omeprazole (PRILOSEC) 40 mg capsule Take 1 capsule by mouth once daily. - zolpidem (AMBIEN) 10 mg Take 1 tablet by mouth at bedtime as neede for Insomnia - promethazine (PHENERGAN) 25 mg tablet Take 1 tablet by mouth every 6 hours as needed. - busPIRone (BUSPAR) 15 mg tablet Take 0.5 tablets by mouth two times a day. - rOPINIRole (REQUIP) 0.5 mg tablet Take 1 tablet by mouth two times a day. - clotrimazole-betametha sone (LOTRISONE) cream Apply to affected area two times a day. - ferrous gluconate 236 mg (27 mg iron) tab Take 1 tablet by mouth once daily. - diphenoxylate-atropine (LOMOTIL) 2.5-0.025 mg per tablet Take 1 tablet by mouth four times a day as needed for up to 10 days. - warfarin (COUMADIN) 5 mg tablet Take 1 tablet by mouth once daily. - ondansetron (ZOFRAN) 8 mg tablet Take 1 tablet by mouth every 8 hours as needed for nausea/vomiting. - ondansetron orally disintegrating (ZOFRAN ODT) 4 mg disintegrating tablet Take 1 tablet by mouth every 8 hours as needed for nausea/vomiting. - fvgsjnlpba-qtakaevv-mk rmoterol (BREZTRI AEROSPHERE) 160-9-4.8 mcg/actuation HFA aerosol inhaler Inhale 2 Puffs as instructed two times a day. - albuterol HFA (PROVENTIL HFA, VENTOLIN HFA) 90 mcg/actuation inhaler Inhale 2 Puffs as instructed every 6 hours as needed for wheezing/shortness of breath. - simethicone 250 mg cap Take 1 capsule by mouth three times a day. - hyoscyamine SR (LEVBID) 0.375 mg 12 hr tablet Take 1 tablet by mouth two times a day. - levothyroxine (SYNTHROID) 50 mcg tablet Take 1 tablet by mouth once daily. - dicyclomine (BENTYL) 20 mg tablet Take 1 tablet by mouth three times a day. - ondansetron (ZOFRAN) 4 mg tablet Take 1 tablet by mouth every 6 hours as needed. - traMADol (ULTRAM) 50 mg tablet Take 1 tablet by mouth every 6 hours as needed. - buPROPion XL (WELLBUTRIN XL) 150 mg 24 hr tablet Take 2 tablets by mouth once daily. - ezetimibe (ZETIA) 10 mg tablet Take 1 tablet by mouth once daily. - cyclobenzaprine (FLEXERIL) 10 mg tablet Take 1 tablet by mouth three times daily as needed. - docusate sodium (COLACE) 100 mg capsule Take 1 capsule by mouth twice daily. - SF 5000 PLUS 1.1 % dental cream Problem List As Of Date 05/07/2024 Noted Resolved Parkinson's disease (HCC) [G20.A1] 06/22/2020 04/17/2022 Irritable bowel syndrome with both constipation* 0 Subclinical hypothyroidism [E03.8] 06/22/2020 History of DVT (deep vein thrombosis) [Z86.718] 06/22/2020 Prediabetes [R73.03] 06/22/2020 GERD without esophagitis [K21.9] 06/22/2020 04/17/2022 (more content not included)... Normal [facility] Absolute lymphocyte countOrd ered By: Mike Fraser on 12-13-2023 Lymphocytes Auto (Unsp spec) [#/Vol] 2.12 10*3/uL 0.83-4.51 [facility] Acute Abdomen Inc Cheston Acute Abdomen Inc Chest Normal [facility] Automated lymphocyte count a s percentage of total leukocytesOrdered By: Mike Fraser on 12-13-2023 Lymphocytes/100 WBC Auto (Unsp spec) 21.9 % 19-41 [facility] Basophil percentageOrdered B y: Mike Fraser on 12-13-2023 Basophil percentage 0-5 SEEN /hpf 0-5 [facility] Basophils/100 WBC (Bld) 0.4 % 0-1 [facility] Bilirubin [Mass/Vol] 0.30 mg/dL 0.20-1.00 [facility] Comment on above: For patients on eltr ombopag therapy, use of Dimension [place] TBIL is not recommended. Chloride [Moles/Vol] 113 mmol/L 98-107 [facility] Eosinophils/100 WBC (Bld) 2.0 % 0-5 [facility] Glucose [Mass/Vol] 92 mg/dL 74-106 [facility] Hemoglobin (Bld) [Mass/Vol] 8.6 g/dL 12.0-15.0 [facility] Monocytes/100 WBC (Bld) 8.2 % 0-10 [facility] Neutrophils (Bld) [#/Vol] 6.5 10*3/uL 2.0-7.7 [facility] Neutrophils/100 WBC (Bld) 67.1 % 47-70 [facility] Potassium [Moles/Vol] 3.7 mmol/L 3.5-5.1 [facility] Protein [Mass/Vol] 5.7 g/dL 6.4-8.2 [facility] Sodium [Moles/Vol] 144 mmol/L 136-145 [facility] WBC (Bld) [#/Vol] 9.7 10*3/uL 4.4-11.0 [facility] Bilirubin Test strip Ql (U)O rdered By: Mike Fraser on 12-13-2023 Bilirubin Ql (U) Negative Negative [facility] CBC W/Diff, Automatedon 11-16 Absolute Lymph 2.12 X10 3/uL Normal 0.83-4.51 [facility] Comment on above: Performed By: #### L 100.0100, L501.2450, L500.4050 ####[facility] [address] [place], [address] Absolute Neut 6.5 X10 3/uL Normal 2.0-7.7 [facility] Comment on above: Performed By: #### L 100.0100, L501.2450, L500.4050 ####[facility] [address] [place], [address] Basophils/100 WBC (Bld) 0.4 % Normal 0-1 [facility] Comment on above: Performed By: #### L 100.0100, L501.2450, L500.4050 ####[facility] [address] [place], [address] Eosinophils/100 WBC (Bld) 2.0 % Normal 0-5 [facility] Comment on above: Performed By: #### L 100.0100, L501.2450, L500.4050 ####[facility] [address] [place], [address] Erythrocyte distribution width (RBC) [Ratio] 17.0 % High 11.6-14.6 [facility] Comment on above: Performed By: #### L 100.0100, L501.2450, L500.4050 ####[facility] [address] [place], [address] Hematocrit (Bld) [Volume fraction] 27.3 % Low 37-47 [facility] Comment on above: Performed By: #### L 100.0100, L501.2450, L500.4050 ####[facility] [address] [place], [address] Hemoglobin (Bld) [Mass/Vol] 8.6 g/dL Low 12.0-15.0 [facility] Comment on above: Performed By: #### L 100.0100, L501.2450, L500.4050 ####[facility] [address] [place], [address] IG% 0.400 Normal 0.0-0.9 [facility] Comment on above: Result Comment: IG% - Immature Granulocytes (promyelocytes, myelocytes andmetamyelocytes) > 1% indicates that a LEFT SHIFT is Present. Performed By: #### L 100.0100, L501.2450, L500.4050 ####[facility] [address] [place], [address] Lymphocytes/100 WBC (Bld) 21.9 % Normal 19-41 [facility] Comment on above: Performed By: #### L 100.0100, L501.2450, L500.4050 ####[facility] [address] [place], [address] MCH (RBC) [Entitic mass] 27.2 pg Normal 27.0-32.0 [facility] Comment on above: Performed By: #### L 100.0100, L501.2450, L500.4050 ####[facility] [address] [place], [address] MCHC (RBC) [Mass/Vol] 31.5 g/dL Low 32-36 [facility] Comment on above: Performed By: #### L 100.0100, L501.2450, L500.4050 ####[facility] [address] [place], [address] MCV (RBC) [Entitic vol] 86.4 fL Normal 81-99 [facility] Comment on above: Performed By: #### L 100.0100, L501.2450, L500.4050 ####[facility] [address] [place], [address] Monocytes/100 WBC (Bld) 8.2 % Normal 0-10 [facility] Comment on above: Performed By: #### L 100.0100, L501.2450, L500.4050 ####[facility] [address] [place], [address] Neutrophils/100 WBC (Bld) 67.1 % Normal 47-70 [facility] Comment on above: Performed By: #### L 100.0100, L501.2450, L500.4050 ####[facility] [address] [place], [address] Nucleated RBC (Bld) [#/Vol] 0 10*3/uL Normal 0-5 [facility] Comment on above: Performed By: #### L 100.0100, L501.2450, L500.4050 ####[facility] [address] [place], [address] Platelet mean volume (Bld) [Entitic vol] 10.7 fL Normal 6.2-12.0 [facility] Comment on above: Performed By: #### L 100.0100, L501.2450, L500.4050 ####[facility] [address] [place], [address] Platelets (Bld) [#/Vol] 310 10*3/uL Normal 150-450 [facility] Comment on above: Performed By: #### L 100.0100, L501.2450, L500.4050 ####[facility] [address] [place], [address] RBC (Bld) [#/Vol] 3.16 10*6/uL Low 4.2-5.4 [facility] Comment on above: Performed By: #### L 100.0100, L501.2450, L500.4050 ####[facility] [address] [place], [address] RDW SD 53.4 fl High 35.1-43.9 [facility] Comment on above: Performed By: #### L 100.0100, L501.2450, L500.4050 ####[facility] [address] [place], [address] WBC (Bld) [#/Vol] 9.7 10*3/uL Normal 4.4-11.0 [facility] Comment on above: Performed By: #### L 100.0100, L501.2450, L500.4050 ####[facility] [address] [place], [address] Comprehensive Metabolic Prof ilon 12-13-2023 Albumin [Mass/Vol] 2.7 g/dL Low 3.2-5.0 [facility] Comment on above: Performed By: #### L 100.0100, L501.2450, L500.4050 ####[facility] [address] [place], [address] Albumin/Globulin [Mass ratio] 0.9 {ratio} Normal 0.9-2.4 [facility] Comment on above: Performed By: #### L 100.0100, L501.2450, L500.4050 ####[facility] [address] [place], [address] ALK P 103 U/L Normal 45-117 [facility] Comment on above: Performed By: #### L 100.0100, L501.2450, L500.4050 ####[facility] [address] [place], [address] ALT [Catalytic activity/Vol] 34 U/L Normal 13-56 [facility] Comment on above: Performed By: #### L 100.0100, L501.2450, L500.4050 ####[facility] [address] [place], [address] AST [Catalytic activity/Vol] 20 U/L Normal 15-37 [facility] Comment on above: Performed By: #### L 100.0100, L501.2450, L500.4050 ####[facility] [address] [place], [address] Bilirubin [Mass/Vol] 0.30 mg/dL Normal 0.20-1.00 [facility] Comment on above: Result Comment: For patients on eltrombopag therapy, use of Dimension [place] TBIL is not recommended. Performed By: #### L 100.0100, L501.2450, L500.4050 ####[facility] [address] [place], [address] BUN/CRE 10.1 RATIO Normal 10-20 [facility] Comment on above: Performed By: #### L 100.0100, L501.2450, L500.4050 ####[facility] [address] [place], [address] CA,Total 8.9 mg/dL Normal 8.5-10.1 [facility] Comment on above: Performed By: #### L 100.0100, L501.2450, L500.4050 ####[facility] [address] [place], [address] Chloride [Moles/Vol] 113 mmol/L High 98-107 [facility] Comment on above: Performed By: #### L 100.0100, L501.2450, L500.4050 ####[facility] [address] [place], [address] CO2 [Moles/Vol] 26.0 mmol/L Normal 21.0-32.0 [facility] Comment on above: Performed By: #### L 100.0100, L501.2450, L500.4050 ####[facility] [address] [place], [address] Creatinine [Mass/Vol] 0.90 mg/dL Normal 0.55-1.02 [facility] Comment on above: Result Comment: The validity of the calculated GFR GFRAA in patients over70 years has not been determined. Clinical correlation isessential. Performed By: #### L 100.0100, L501.2450, L500.4050 ####[facility] [address] [place], [address] ECRCL 46.13 ml/min Normal [facility] Comment on above: Performed By: #### L 100.0100, L501.2450, L500.4050 ####[facility] [address] [place], [address] EST GFR - AA 80 mL/min Normal >60 [facility] Comment on above: Result Comment: Afri can Polish GFR Calc Performed By: #### L 100.0100, L501.2450, L500.4050 ####[facility] [address] [place], [address] GAP 5 Normal 5-15 [facility] Comment on above: Performed By: #### L 100.0100, L501.2450, L500.4050 ####[facility] [address] [place], [address] GFR/1.73 sq M.predicted among non-blacks MDRD (S/P/Bld) [Vol rate/Area] 66 mL/min/{1.73_m2} Normal >60 [facility] Comment on above: Result Comment: Non- GFR Calc Performed By: #### L 100.0100, L501.2450, L500.4050 ####[facility] [address] [place], [address] Globulin (S) [Mass/Vol] 3.0 g/dL Normal 2.2-4.2 [facility] Comment on above: Performed By: #### L 100.0100, L501.2450, L500.4050 ####[facility] [address] [place], [address] Glucose [Mass/Vol] 92 mg/dL Normal 74-106 [facility] Comment on above: Performed By: #### L 100.0100, L501.2450, L500.4050 ####[facility] [address] [place], [address] Potassium [Moles/Vol] 3.7 mmol/L Normal 3.5-5.1 [facility] Comment on above: Performed By: #### L 100.0100, L501.2450, L500.4050 ####[facility] [address] [place], [address] Sodium [Moles/Vol] 144 mmol/L Normal 136-145 [facility] Comment on above: Performed By: #### L 100.0100, L501.2450, L500.4050 ####[facility] [address] [place], [address] T PROT 5.7 g/dL Low 6.4-8.2 [facility] Comment on above: Performed By: #### L 100.0100, L501.2450, L500.4050 ####[facility] [address] [place], [address] Urea nitrogen [Mass/Vol] 9 mg/dL Normal 7-18 [facility] Comment on above: Performed By: #### L 100.0100, L501.2450, L500.4050 ####[facility] [address] [place], [address] Determination of erythrocyte mean corpuscular volume (MCV)Ordered By: Mike Fraser on 12-13-2023 MCV (RBC) [Entitic vol] 86.4 fL 81-99 [facility] Emergency Department Summary on 12-13-2023 Emergency Department Summary Normal [facility] Erythrocyte distribution wid th ratioOrdered By: Mike Fraser on 12-13-2023 Erythrocyte distribution width (RBC) [Ratio] 17.0 % 11.6-14.6 [facility] Erythrocyte distribution wid th standard deviationOrdered By: Mike Fraser on 12-13-2023 Erythrocyte distribution width (RBC) [Entitic vol] 53.4 fL 35.1-43.9 [facility] Hematocrit Auto (Bld) [Volum e fraction]Ordered By: Mike Fraser on 12-13-2023 Hematocrit (Bld) [Volume fraction] 27.3 % 37-47 [facility] Immature granulocytes/100 WB C Auto (Bld)Ordered By: Mike Fraser on 12-13-2023 Immature granulocytes/100 WBC (Bld) 0.400 % 0.0-0.9 [facility] Comment on above: IG% - Immature Granu locytes (promyelocytes, myelocytes and metamyelocytes) > 1% indicates that a LEFT SHIFT is Present. Ketones Test strip Ql (U)Ord ered By: Mike Fraser on 12-13-2023 Ketones Ql (U) Negative Negative [facility] Laboratory - Chemistry and C hemistry - challengeOrdered By: Mike Fraser on 12-13-2023 Albumin/Globulin [Mass ratio] 0.9 {ratio} 0.9-2.4 [facility] ALP [Catalytic activity/Vol] 103 U/L 45-117 [facility] ALT [Catalytic activity/Vol] 34 U/L 13-56 [facility] CO2 [Moles/Vol] 26.0 mmol/L 21.0-32.0 [facility] Globulin (S) [Mass/Vol] 3.0 g/dL 2.2-4.2 [facility] Lipase [Catalytic activity/Vol] 94 U/L 13-75 [facility] Comment on above: Please note:LIPASE r evised reference range effective 22. New Lipase methodology. Expected to produce lower values than the previous assay method. NEW Reference Range: 13 - 75 U/L Urea nitrogen/Creatinine [Mass ratio] 10.1 mg/mg 10-20 [facility] Laboratory - Hematology and Cell countsOrdered By: Mike Fraser on 12-13-2023 MCH (RBC) [Entitic mass] 27.2 pg 27.0-32.0 [facility] MCHC (RBC) [Mass/Vol] 31.5 g/dL 32-36 [facility] Nucleated RBC/100 WBC (Bld) [Ratio] 0 % 0-5 [facility] [facility] Plate[facility] mean volume (Bld) [Entitic vol] 10.7 fL 6.2-12.0 [facility] Platelets (Bld) [#/Vol] 310 10*3/uL 150-450 [facility] Lipaseon 12-13-2023 Lipase [Catalytic activity/Vol] 94 U/L High 13-75 [facility] Comment on above: Result Comment: Michael arreola note:LIPASE revised reference range effective 22.New Lipase methodology. Expected to produce lower valuesthan the previous assay method.NEW Reference Range: 13 - 75 U/L Performed By: #### L 100.0100, L501.2450, L500.4050 ####[facility] [address] [place], [address] Mucus LM Ql (Urine sed)Order ed By: Mike Fraser on 12-13-2023 Mucus Ql (Urine sed) 0 SEEN /hpf [facility] Nitrite Test strip Ql (U)Ord ered By: Mike Fraser on 12-13-2023 Nitrite Ql (U) Negative Negative [facility] No Panel InformationOrdered By: Mike Fraser on 12-13-2023 Urine RBC 0 SEEN /hpf 0-5 [facility] Estimated Creatinine Clearance Calc 46.13 ml/min [facility] Estimated GFR (MDRD) Amer 80 mL/min >60 [facility] Comment on above: GFR Calc Estimated GFR (MDRD) Non-Af Amer 66 mL/min >60 [facility] Comment on above: Non- GFR Calc Protein Test strip Ql (U)Ord ered By: Mike Fraser on 12-13-2023 Protein Ql (U) Negative Negative [facility] RBC Auto (Bld) [#/Vol]Ordere d By: Mike Fraser on 12-13-2023 RBC (Bld) [#/Vol] 3.16 10*6/uL 4.2-5.4 [facility] Serum or plasma calcium franck urement (mass/volume)Ordered By: Mike Fraser on 12-13-2023 Calcium [Mass/Vol] 8.9 mg/dL 8.5-10.1 [facility] Serum or plasma creatinine m easurement (mass/volume)Ordered By: Mike Fraser on 12-13-2023 Creatinine [Mass/Vol] 0.90 mg/dL 0.55-1.02 [facility] Comment on above: The validity of the calculated GFR & GFRAA in patients over 70 years has not been determined. Clinical correlation is essential. Serum or plasma urea nitroge n measurement (mass/volume)Ordered By: Mike Fraser on 12-13-2023 Urea nitrogen [Mass/Vol] 9 mg/dL 7-18 [facility] Squamous epithelial cells de tection in urine sediment by light microscopyOrdered By: Mike Fraser on 12-13-2023 Epithelial cells.squamous LM Ql (Urine sed) 0-5 SEEN /hpf 5-10 [facility] Thin prep Papanicolaou smear with manual screeningOrdered By: Mike Fraser on 12-13-2023 Thin prep Papanicolaou smear with manual screening 2.7 g/dL 3.2-5.0 [facility] Thin prep Papanicolaou smear with manual screening 20 U/L 15-37 [facility] Thin prep Papanicolaou smear with manual screening 5 5-15 [facility] Urinalysis, Completeon 12-12 EPI,SQUAMOUS 0-5 SEEN Normal 5-10 [facility] Comment on above: Order Comment: CLEAN CATCH Performed By: #### L 400.0001 ####[facility] [address] [place], [address] WBC 0-5 SEEN Normal 0-5 [facility] Comment on above: Order Comment: CLEAN CATCH Performed By: #### L 400.0001 ####[facility] [address] [place], [address] BACTERIA 0 SEEN Normal None Seen [facility] Comment on above: Order Comment: CLEAN CATCH Performed By: #### L 400.0001 ####[facility] [address] [place], [address] Mucus Ql (Urine sed) 0 SEEN Normal [facility] Comment on above: Order Comment: CLEAN CATCH Performed By: #### L 400.0001 ####[facility] [address] [place], [address] RBC 0 SEEN Normal 0-5 [facility] Comment on above: Order Comment: CLEAN CATCH Performed By: #### L 400.0001 ####[facility] [address] [place], [address] Urine blood detectionOrdered By: Mike Fraser on 12-13-2023 RBC Ql (U) Negative Negative [facility] Urine clarityOrdered By: Priya Fraser on 12-13-2023 Clarity (U) Sl. Cloudy Clear [facility] Urine color determinationOrd ered By: Mike Fraser on 12-13-2023 Color (U) Straw Yellow [facility] Urine glucose detectionOrder ed By: Mike Fraser on 12-13-2023 Glucose Ql (U) Normal mg/dl Normal [facility] Urine leukocyte esterase det ection by dipstickOrdered By: Mike Fraser on 12-13-2023 Leukocyte esterase Test strip Ql (U) 25 /ul Negative [facility] Urine pHOrdered By: Mike de luna on 12-13-2023 pH (U) 7.0 [pH] 5.0 - 8.0 [facility] Urine sediment bacteria coun t by microscopy (number/high power field)Ordered By: Mike Fraser on 12-13-2023 Bacteria LM.HPF (Urine sed) [#/Area] 0 /[HPF] None Seen [facility] Urine specific gravity measu rementOrdered By: Mike Fraser on 12-13-2023 Specific gravity (U) [Rel density] 1.005 1.002-1.030 [facility] Urine urobilinogen measureme ntOrdered By: Mike Fraser on 12-13-2023 Urobilinogen Ql (U) Normal mg/dl Normal [facility] Absolute lymphocyte countOrd ered By: Aly Fragoso on 12-11-2023 Lymphocytes Auto (Unsp spec) [#/Vol] 1.81 10*3/uL 0.83-4.51 [facility] Automated lymphocyte count a s percentage of total leukocytesOrdered By: Aly Fragoso on 12-11-2023 Lymphocytes/100 WBC Auto (Unsp spec) 32.3 % 19-41 [facility] Basic Metabolic Profile (BMP )on 12-11-2023 BUN/CRE 2.4 RATIO Low 10-20 [facility] Comment on above: Performed By: #### L 500.2500, L100.0100 ####[facility] [address] [place], [address] CA,Total 7.8 mg/dL Low 8.5-10.1 [facility] Comment on above: Performed By: #### L 500.2500, L100.0100 ####[facility] [address] [place], [address] Chloride [Moles/Vol] 114 mmol/L High 98-107 [facility] Comment on above: Performed By: #### L 500.2500, L100.0100 ####[facility] [address] [place], [address] CO2 [Moles/Vol] 21.0 mmol/L Normal 21.0-32.0 [facility] Comment on above: Performed By: #### L 500.2500, L100.0100 ####[facility] [address] [place], [address] Creatinine [Mass/Vol] 0.82 mg/dL Normal 0.55-1.02 [facility] Comment on above: Result Comment: The validity of the calculated GFR GFRAA in patients over70 years has not been determined. Clinical correlation isessential. Performed By: #### L 500.2500, L100.0100 ####[facility] [address] [place], [address] ECRCL 46.80 ml/min Normal [facility] Comment on above: Performed By: #### L 500.2500, L100.0100 ####[facility] [address] [place], [address] EST GFR - AA 88 mL/min Normal >60 [facility] Comment on above: Result Comment: Afri can Polish GFR Calc Performed By: #### L 500.2500, L100.0100 ####[facility] [address] [place], [address] GAP 10 Normal 5-15 [facility] Comment on above: Performed By: #### L 500.2500, L100.0100 ####[facility] [address] [place], [address] GFR/1.73 sq M.predicted among non-blacks MDRD (S/P/Bld) [Vol rate/Area] 73 mL/min/{1.73_m2} Normal >60 [facility] Comment on above: Result Comment: Non- GFR Calc Performed By: #### L 500.2500, L100.0100 ####[facility] [address] [place], [address] Glucose [Mass/Vol] 125 mg/dL High 74-106 [facility] Comment on above: Result Comment: Fast ing Glucose result from 100 to 125 mg/dLsuggests IMPAIRED HOMEOSTASIS per A.D.A. criteria. Performed By: #### L 500.2500, L100.0100 ####[facility] [address] [place], [address] Potassium [Moles/Vol] 3.2 mmol/L Low 3.5-5.1 [facility] Comment on above: Performed By: #### L 500.2500, L100.0100 ####[facility] [address] [place], [address] Sodium [Moles/Vol] 145 mmol/L Normal 136-145 [facility] Comment on above: Performed By: #### L 500.2500, L100.0100 ####[facility] [address] [place], [address] Urea nitrogen [Mass/Vol] 2 mg/dL Low 7-18 [facility] Comment on above: Performed By: #### L 500.2500, L100.0100 ####[facility] [address] [place], [address] Basophil percentageOrdered B y: Aly Fragoso on 12-11-2023 Basophils/100 WBC (Bld) 0.9 % 0-1 [facility] Chloride [Moles/Vol] 114 mmol/L 98-107 [facility] Eosinophils/100 WBC (Bld) 2.7 % 0-5 [facility] Glucose [Mass/Vol] 125 mg/dL 74-106 [facility] Comment on above: Fasting Glucose resu lt from 100 to 125 mg/dL suggests IMPAIRED HOMEOSTASIS per A.D.A. criteria. Hemoglobin (Bld) [Mass/Vol] 7.8 g/dL 12.0-15.0 [facility] Monocytes/100 WBC (Bld) 11.6 % 0-10 [facility] Neutrophils (Bld) [#/Vol] 2.9 10*3/uL 2.0-7.7 [facility] Neutrophils/100 WBC (Bld) 52.3 % 47-70 [facility] Potassium [Moles/Vol] 3.2 mmol/L 3.5-5.1 [facility] Sodium [Moles/Vol] 145 mmol/L 136-145 [facility] WBC (Bld) [#/Vol] 5.6 10*3/uL 4.4-11.0 [facility] CBC W/Diff, Automatedon 11-16 Absolute Lymph 1.81 X10 3/uL Normal 0.83-4.51 [facility] Comment on above: Performed By: #### L 500.2500, L100.0100 ####[facility] [address] [place], [address] Absolute Neut 2.9 X10 3/uL Normal 2.0-7.7 [facility] Comment on above: Performed By: #### L 500.2500, L100.0100 ####[facility] [address] [place], [address] Basophils/100 WBC (Bld) 0.9 % Normal 0-1 [facility] Comment on above: Performed By: #### L 500.2500, L100.0100 ####[facility] [address] [place], [address] Eosinophils/100 WBC (Bld) 2.7 % Normal 0-5 [facility] Comment on above: Performed By: #### L 500.2500, L100.0100 ####[facility] [address] [place], [address] Erythrocyte distribution width (RBC) [Ratio] 16.3 % High 11.6-14.6 [facility] Comment on above: Performed By: #### L 500.2500, L100.0100 ####[facility] [address] [place], [address] Hematocrit (Bld) [Volume fraction] 24.7 % Low 37-47 [facility] Comment on above: Performed By: #### L 500.2500, L100.0100 ####[facility] [address] [place], [address] Hemoglobin (Bld) [Mass/Vol] 7.8 g/dL Low 12.0-15.0 [facility] Comment on above: Performed By: #### L 500.2500, L100.0100 ####[facility] [address] [place], [address] IG% 0.200 Normal 0.0-0.9 [facility] Comment on above: Result Comment: IG% - Immature Granulocytes (promyelocytes, myelocytes andmetamyelocytes) > 1% indicates that a LEFT SHIFT is Present. Performed By: #### L 500.2500, L100.0100 ####[facility] [address] [place], [address] Lymphocytes/100 WBC (Bld) 32.3 % Normal 19-41 [facility] Comment on above: Performed By: #### L 500.2500, L100.0100 ####[facility] [address] [place], [address] MCH (RBC) [Entitic mass] 26.9 pg Low 27.0-32.0 [facility] Comment on above: Performed By: #### L 500.2500, L100.0100 ####[facility] [address] [place], [address] MCHC (RBC) [Mass/Vol] 31.6 g/dL Low 32-36 [facility] Comment on above: Performed By: #### L 500.2500, L100.0100 ####[facility] [address] [place], [address] MCV (RBC) [Entitic vol] 85.2 fL Normal 81-99 [facility] Comment on above: Performed By: #### L 500.2500, L100.0100 ####[facility] [address] [place], [address] Monocytes/100 WBC (Bld) 11.6 % High 0-10 [facility] Comment on above: Performed By: #### L 500.2500, L100.0100 ####[facility] [address] [place], [address] Neutrophils/100 WBC (Bld) 52.3 % Normal 47-70 [facility] Comment on above: Performed By: #### L 500.2500, L100.0100 ####[facility] [address] [place], [address] Nucleated RBC (Bld) [#/Vol] 0 10*3/uL Normal 0-5 [facility] Comment on above: Performed By: #### L 500.2500, L100.0100 ####[facility] [address] [place], [address] Platelet mean volume (Bld) [Entitic vol] 11.0 fL Normal 6.2-12.0 [facility] Comment on above: Performed By: #### L 500.2500, L100.0100 ####[facility] [address] [place], [address] Platelets (Bld) [#/Vol] 235 10*3/uL Normal 150-450 [facility] Comment on above: Performed By: #### L 500.2500, L100.0100 ####[facility] [address] [place], [address] RBC (Bld) [#/Vol] 2.90 10*6/uL Low 4.2-5.4 [facility] Comment on above: Performed By: #### L 500.2500, L100.0100 ####[facility] [address] [place], [address] RDW SD 51.0 fl High 35.1-43.9 [facility] Comment on above: Performed By: #### L 500.2500, L100.0100 ####[facility] [address] [place], [address] WBC (Bld) [#/Vol] 5.6 10*3/uL Normal 4.4-11.0 [facility] Comment on above: Performed By: #### L 500.2500, L100.0100 ####[facility] [address] [place], [address] Determination of erythrocyte mean corpuscular volume (MCV)Ordered By: Aly Fragoso on 12-11-2023 MCV (RBC) [Entitic vol] 85.2 fL 81-99 [facility] Discharge Instructionon 11-16 Discharge Instruction Normal [facility] Erythrocyte distribution wid th ratioOrdered By: Aly Fragoso on 12-11-2023 Erythrocyte distribution width (RBC) [Ratio] 16.3 % 11.6-14.6 [facility] Erythrocyte distribution wid th standard deviationOrdered By: Aly Fragoso on 12-11-2023 Erythrocyte distribution width (RBC) [Entitic vol] 51.0 fL 35.1-43.9 [facility] Hematocrit Auto (Bld) [Volum e fraction]Ordered By: Aly Fragoso on 12-11-2023 Hematocrit (Bld) [Volume fraction] 24.7 % 37-47 [facility] Immature granulocytes/100 WB C Auto (Bld)Ordered By: Aly Fragoso on 12-11-2023 Immature granulocytes/100 WBC (Bld) 0.200 % 0.0-0.9 [facility] Comment on above: IG% - Immature Granu locytes (promyelocytes, myelocytes and metamyelocytes) > 1% indicates that a LEFT SHIFT is Present. Laboratory - Chemistry and C hemistry - challengeOrdered By: Aly Fragoso on 12-11-2023 CO2 [Moles/Vol] 21.0 mmol/L 21.0-32.0 [facility] Urea nitrogen/Creatinine [Mass ratio] 2.4 mg/mg 10-20 [facility] Laboratory - Hematology and Cell countsOrdered By: Aly Fragoso on 12-11-2023 MCH (RBC) [Entitic mass] 26.9 pg 27.0-32.0 [facility] MCHC (RBC) [Mass/Vol] 31.6 g/dL 32-36 [facility] Nucleated RBC/100 WBC (Bld) [Ratio] 0 % 0-5 [facility] Platelet mean volume (Bld) [Entitic vol] 11.0 fL 6.2-12.0 [facility] Platelets (Bld) [#/Vol] 235 10*3/uL 150-450 [facility] No Panel InformationOrdered By: Aly Fragoso on 12-11-2023 Estimated Creatinine Clearance Calc 46.80 ml/min [facility] Estimated GFR (MDRD) Amer 88 mL/min >60 [facility] Comment on above: GFR Calc Estimated GFR (MDRD) Non-Af Amer 73 mL/min >60 [facility] Comment on above: Non- GFR Calc RBC Auto (Bld) [#/Vol]Ordere d By: Aly Fragoso on 12-11-2023 RBC (Bld) [#/Vol] 2.90 10*6/uL 4.2-5.4 [facility] Serum or plasma calcium franck urement (mass/volume)Ordered By: Aly Fragoso on 12-11-2023 Calcium [Mass/Vol] 7.8 mg/dL 8.5-10.1 [facility] Serum or plasma creatinine m easurement (mass/volume)Ordered By: Aly Fragoso on 12-11-2023 Creatinine [Mass/Vol] 0.82 mg/dL 0.55-1.02 [facility] Comment on above: The validity of the calculated GFR & GFRAA in patients over 70 years has not been determined. Clinical correlation is essential. Serum or plasma urea nitroge n measurement (mass/volume)Ordered By: Aly Fragoso on 12-11-2023 Urea nitrogen [Mass/Vol] 2 mg/dL 7-18 [facility] Thin prep Papanicolaou smear with manual screeningOrdered By: Aly Fragoso on 12-11-2023 Thin prep Papanicolaou smear with manual screening 10 5-15 [facility] Ferritinon 12-10-2023 Ferritin [Mass/Vol] 15 ng/mL Normal 8-252 [facility] Comment on above: Performed By: #### L 503.0105, L503.6030, L503.6550 ####[facility] [address] [place], [place], [id number] Iron measurement (mass/mass) Ordered By: Aly Fragoso on 12-10-2023 Iron (Unsp spec) [Mass/Mass] 28 ug/dL 50-170 [facility] Iron+Iron Binding Capacityon 12-10-2023 Iron [Mass/Vol] 28 ug/dL Low 50-170 [facility] Comment on above: Performed By: #### L 503.0105, L503.6030, L503.6550 ####[facility] [address] [place], [place], [id number] IRON SATURATION 8.0 Low 15.0-55.0 [facility] Comment on above: Performed By: #### L 503.0105, L503.6030, L503.6550 ####[facility] [address] [place], [address] TIBC 350 ug/dL Normal 250-450 [facility] Comment on above: Performed By: #### L 503.0105, L503.6030, L503.6550 ####[facility] [address] [place], [address] Laboratory - Chemistry and C hemistry - challengeOrdered By: Aly Fragoso on 12-10-2023 Cobalamin (Vitamin B12) [Mass/Vol] 741 pg/mL [facility] Ferritin [Mass/Vol] 15 ng/mL 8-252 [facility] No Panel InformationOrdered By: Aly Fragoso on 12-10-2023 Total Iron Binding Capacity 350 ug/dL 250-450 [facility] Serum or plasma iron saturat ion measurement (mass fraction)Ordered By: Aly Fragoso on 12-10-2023 Iron saturation [Mass fraction] 8.0 % 15.0-55.0 [facility] Vitamin B12on 12-10-2023 Cobalamin (Vitamin B12) [Mass/Vol] 741 pg/mL Normal [facility] Comment on above: Performed By: #### L 503.0105, L503.6030, L503.6550 ####[facility] [address] [place], [place], [address] Abdomen Single View (Portabl e)on 12-09-2023 Abdomen Single View (Portable) Normal [facility] Basophil percentageOrdered B y: Jessica White on 12-09-2023 Bilirubin [Mass/Vol] 0.70 mg/dL Normal 0.20-1.00 [facility] Comment on above: For patients on eltr ombopag therapy, use of Dimension [place] TBIL is not recommended. Order Comment: UTO-I NFORMED NURSE DIRECTOR EMERGENCY SERVICES-THEY WERE GOING TO SEE IF THEYCOULD PULL IT OFF THE NEW IV TO BE PUT IN. Result Comment: For patients on eltrombopag therapy, use of Dimension [place] TBIL is not recommended. Performed By: #### L 100.0100, L500.4050 ####[facility] [address] [place], [place], [id number] Protein [Mass/Vol] 6.0 g/dL 6.4-8.2 [facility] CBC W/Diff, Automatedon 11-16 Absolute Lymph 2.14 X10 3/uL Normal 0.83-4.51 [facility] Comment on above: Order Comment: UTO-I NFORMED NURSE DIRECTOR EMERGENCY SERVICES-THEY WERE GOING TO SEE IF THEYCOULD PULL IT OFF THE NEW IV TO BE PUT IN. Performed By: #### L 100.0100, L500.4050 ####[facility] [address] [place], [address] Absolute Neut 4.5 X10 3/uL Normal 2.0-7.7 [facility] Comment on above: Order Comment: UTO-I NFORMED NURSE DIRECTOR EMERGENCY SERVICES-THEY WERE GOING TO SEE IF THEYCOULD PULL IT OFF THE NEW IV TO BE PUT IN. Performed By: #### L 100.0100, L500.4050 ####[facility] [address] [place], [address] Basophils/100 WBC (Bld) 0.8 % Normal 0-1 [facility] Comment on above: Order Comment: UTO-I NFORMED NURSE DIRECTOR EMERGENCY SERVICES-THEY WERE GOING TO SEE IF THEYCOULD PULL IT OFF THE NEW IV TO BE PUT IN. Performed By: #### L 100.0100, L500.4050 ####[facility] [address] [place], [address] Eosinophils/100 WBC (Bld) 2.8 % Normal 0-5 [facility] Comment on above: Order Comment: UTO-I NFORMED NURSE DIRECTOR EMERGENCY SERVICES-THEY WERE GOING TO SEE IF THEYCOULD PULL IT OFF THE NEW IV TO BE PUT IN. Performed By: #### L 100.0100, L500.4050 ####[facility] [address] [place], [address] Erythrocyte distribution width (RBC) [Ratio] 16.1 % High 11.6-14.6 [facility] Comment on above: Order Comment: UTO-I NFORMED NURSE DIRECTOR EMERGENCY SERVICES-THEY WERE GOING TO SEE IF THEYCOULD PULL IT OFF THE NEW IV TO BE PUT IN. Performed By: #### L 100.0100, L500.4050 ####[facility] [address] [place], [address] Hematocrit (Bld) [Volume fraction] 25.8 % Low 37-47 [facility] Comment on above: Order Comment: UTO-I NFORMED NURSE DIRECTOR EMERGENCY SERVICES-THEY WERE GOING TO SEE IF THEYCOULD PULL IT OFF THE NEW IV TO BE PUT IN. Performed By: #### L 100.0100, L500.4050 ####[facility] [address] [place], [address] Hemoglobin (Bld) [Mass/Vol] 8.3 g/dL Low 12.0-15.0 [facility] Comment on above: Order Comment: UTO-I NFORMED NURSE DIRECTOR EMERGENCY SERVICES-THEY WERE GOING TO SEE IF THEYCOULD PULL IT OFF THE NEW IV TO BE PUT IN. Performed By: #### L 100.0100, L500.4050 ####[facility] [address] [place], [address] IG% 0.500 Normal 0.0-0.9 [facility] Comment on above: Order Comment: UTO-I NFORMED NURSE DIRECTOR EMERGENCY SERVICES-THEY WERE GOING TO SEE IF THEYCOULD PULL IT OFF THE NEW IV TO BE PUT IN. Result Comment: IG% - Immature Granulocytes (promyelocytes, myelocytes andmetamyelocytes) > 1% indicates that a LEFT SHIFT is Present. Performed By: #### L 100.0100, L500.4050 ####[facility] [address] [place], [address] Lymphocytes/100 WBC (Bld) 28.5 % Normal 19-41 [facility] Comment on above: Order Comment: UTO-I NFORMED NURSE DIRECTOR EMERGENCY SERVICES-THEY WERE GOING TO SEE IF THEYCOULD PULL IT OFF THE NEW IV TO BE PUT IN. Performed By: #### L 100.0100, L500.4050 ####[facility] [address] [place], [address] MCH (RBC) [Entitic mass] 27.7 pg Normal 27.0-32.0 [facility] Comment on above: Order Comment: UTO-I NFORMED NURSE DIRECTOR EMERGENCY SERVICES-THEY WERE GOING TO SEE IF THEYCOULD PULL IT OFF THE NEW IV TO BE PUT IN. Performed By: #### L 100.0100, L500.4050 ####[facility] [address] [place], [address] MCHC (RBC) [Mass/Vol] 32.2 g/dL Normal 32-36 [facility] Comment on above: Order Comment: UTO-I NFORMED NURSE DIRECTOR EMERGENCY SERVICES-THEY WERE GOING TO SEE IF THEYCOULD PULL IT OFF THE NEW IV TO BE PUT IN. Performed By: #### L 100.0100, L500.4050 ####[facility] [address] [place], [address] MCV (RBC) [Entitic vol] 86.0 fL Normal 81-99 [facility] Comment on above: Order Comment: UTO-I NFORMED NURSE DIRECTOR EMERGENCY SERVICES-THEY WERE GOING TO SEE IF THEYCOULD PULL IT OFF THE NEW IV TO BE PUT IN. Performed By: #### L 100.0100, L500.4050 ####[facility] [address] [place], [address] Monocytes/100 WBC (Bld) 8.0 % Normal 0-10 [facility] Comment on above: Order Comment: UTO-I NFORMED NURSE DIRECTOR EMERGENCY SERVICES-THEY WERE GOING TO SEE IF THEYCOULD PULL IT OFF THE NEW IV TO BE PUT IN. Performed By: #### L 100.0100, L500.4050 ####[facility] [address] [place], [address] Neutrophils/100 WBC (Bld) 59.4 % Normal 47-70 [facility] Comment on above: Order Comment: UTO-I NFORMED NURSE DIRECTOR EMERGENCY SERVICES-THEY WERE GOING TO SEE IF THEYCOULD PULL IT OFF THE NEW IV TO BE PUT IN. Performed By: #### L 100.0100, L500.4050 ####[facility] [address] [place], [address] Nucleated RBC (Bld) [#/Vol] 0 10*3/uL Normal 0-5 [facility] Comment on above: Order Comment: UTO-I NFORMED NURSE DIRECTOR EMERGENCY SERVICES-THEY WERE GOING TO SEE IF THEYCOULD PULL IT OFF THE NEW IV TO BE PUT IN. Performed By: #### L 100.0100, L500.4050 ####[facility] [address] [place], [address] Platelet mean volume (Bld) [Entitic vol] 10.1 fL Normal 6.2-12.0 [facility] Comment on above: Order Comment: UTO-I NFORMED NURSE DIRECTOR EMERGENCY SERVICES-THEY WERE GOING TO SEE IF THEYCOULD PULL IT OFF THE NEW IV TO BE PUT IN. Performed By: #### L 100.0100, L500.4050 ####[facility] [address] [place], [address] Platelets (Bld) [#/Vol] 269 10*3/uL Normal 150-450 [facility] Comment on above: Order Comment: UTO-I NFORMED NURSE DIRECTOR EMERGENCY SERVICES-THEY WERE GOING TO SEE IF THEYCOULD PULL IT OFF THE NEW IV TO BE PUT IN. Performed By: #### L 100.0100, L500.4050 ####[facility] [address] [place], [address] RBC (Bld) [#/Vol] 3.00 10*6/uL Low 4.2-5.4 [facility] Comment on above: Order Comment: UTO-I NFORMED NURSE DIRECTOR EMERGENCY SERVICES-THEY WERE GOING TO SEE IF THEYCOULD PULL IT OFF THE NEW IV TO BE PUT IN. Performed By: #### L 100.0100, L500.4050 ####[facility] [address] [place], [address] RDW SD 50.3 fl High 35.1-43.9 [facility] Comment on above: Order Comment: UTO-I NFORMED NURSE DIRECTOR EMERGENCY SERVICES-THEY WERE GOING TO SEE IF THEYCOULD PULL IT OFF THE NEW IV TO BE PUT IN. Performed By: #### L 100.0100, L500.4050 ####[facility] [address] [place], [address] WBC (Bld) [#/Vol] 7.5 10*3/uL Normal 4.4-11.0 [facility] Comment on above: Order Comment: UTO-I NFORMED NURSE DIRECTOR EMERGENCY SERVICES-THEY WERE GOING TO SEE IF THEYCOULD PULL IT OFF THE NEW IV TO BE PUT IN. Performed By: #### L 100.0100, L500.4050 ####[facility] [address] [place], [address] Comprehensive Metabolic Prof ilon 12-09-2023 Albumin [Mass/Vol] 2.8 g/dL Low 3.2-5.0 [facility] Comment on above: Order Comment: UTO-I NFORMED NURSE DIRECTOR EMERGENCY SERVICES-THEY WERE GOING TO SEE IF THEYCOULD PULL IT OFF THE NEW IV TO BE PUT IN. Performed By: #### L 100.0100, L500.4050 ####[facility] [address] [place], [address] ALK P 139 U/L High 45-117 [facility] Comment on above: Order Comment: UTO-I NFORMED NURSE DIRECTOR EMERGENCY SERVICES-THEY WERE GOING TO SEE IF THEYCOULD PULL IT OFF THE NEW IV TO BE PUT IN. Performed By: #### L 100.0100, L500.4050 ####[facility] [address] [place], [address] AST [Catalytic activity/Vol] 54 U/L High 15-37 [facility] Comment on above: Order Comment: UTO-I NFORMED NURSE DIRECTOR EMERGENCY SERVICES-THEY WERE GOING TO SEE IF THEYCOULD PULL IT OFF THE NEW IV TO BE PUT IN. Performed By: #### L 100.0100, L500.4050 ####[facility] [address] [place], [address] BUN/CRE 9.4 RATIO Low 10-20 [facility] Comment on above: Order Comment: UTO-I NFORMED NURSE DIRECTOR EMERGENCY SERVICES-THEY WERE GOING TO SEE IF THEYCOULD PULL IT OFF THE NEW IV TO BE PUT IN. Performed By: #### L 100.0100, L500.4050 ####[facility] [address] [place], [address] CA,Total 8.2 mg/dL Low 8.5-10.1 [facility] Comment on above: Order Comment: UTO-I NFORMED NURSE DIRECTOR EMERGENCY SERVICES-THEY WERE GOING TO SEE IF THEYCOULD PULL IT OFF THE NEW IV TO BE PUT IN. Performed By: #### L 100.0100, L500.4050 ####[facility] [address] [place], [address] Chloride [Moles/Vol] 109 mmol/L High 98-107 [facility] Comment on above: Order Comment: UTO-I NFORMED NURSE DIRECTOR EMERGENCY SERVICES-THEY WERE GOING TO SEE IF THEYCOULD PULL IT OFF THE NEW IV TO BE PUT IN. Performed By: #### L 100.0100, L500.4050 ####[facility] [address] [place], [address] CO2 [Moles/Vol] 17.0 mmol/L Low 21.0-32.0 [facility] Comment on above: Order Comment: UTO-I NFORMED NURSE DIRECTOR EMERGENCY SERVICES-THEY WERE GOING TO SEE IF THEYCOULD PULL IT OFF THE NEW IV TO BE PUT IN. Performed By: #### L 100.0100, L500.4050 ####[facility] [address] [place], [address] Creatinine [Mass/Vol] 0.96 mg/dL Normal 0.55-1.02 [facility] Comment on above: Order Comment: UTO-I NFORMED NURSE DIRECTOR EMERGENCY SERVICES-THEY WERE GOING TO SEE IF THEYCOULD PULL IT OFF THE NEW IV TO BE PUT IN. Result Comment: The validity of the calculated GFR GFRAA in patients over70 years has not been determined. Clinical correlation isessential. Performed By: #### L 100.0100, L500.4050 ####[facility] [address] [place], [address] ECRCL 39.97 ml/min Normal [facility] Comment on above: Order Comment: UTO-I NFORMED NURSE DIRECTOR EMERGENCY SERVICES-THEY WERE GOING TO SEE IF THEYCOULD PULL IT OFF THE NEW IV TO BE PUT IN. Performed By: #### L 100.0100, L500.4050 ####[facility] [address] [place], [address] EST GFR - AA 74 mL/min Normal >60 [facility] Comment on above: Order Comment: UTO-I NFORMED NURSE DIRECTOR EMERGENCY SERVICES-THEY WERE GOING TO SEE IF THEYCOULD PULL IT OFF THE NEW IV TO BE PUT IN. Result Comment: Afri can Polish GFR Calc Performed By: #### L 100.0100, L500.4050 ####[facility] [address] [place], [address] GAP 11 Normal 5-15 [facility] Comment on above: Order Comment: UTO-I NFORMED NURSE DIRECTOR EMERGENCY SERVICES-THEY WERE GOING TO SEE IF THEYCOULD PULL IT OFF THE NEW IV TO BE PUT IN. Performed By: #### L 100.0100, L500.4050 ####[facility] [address] [place], [address] GFR/1.73 sq M.predicted among non-blacks MDRD (S/P/Bld) [Vol rate/Area] 61 mL/min/{1.73_m2} Normal >60 [facility] Comment on above: Order Comment: UTO-I NFORMED NURSE DIRECTOR EMERGENCY SERVICES-THEY WERE GOING TO SEE IF THEYCOULD PULL IT OFF THE NEW IV TO BE PUT IN. Result Comment: Non- GFR Calc Performed By: #### L 100.0100, L500.4050 ####[facility] [address] [place], [address] Glucose [Mass/Vol] 104 mg/dL Normal 74-106 [facility] Comment on above: Order Comment: UTO-I NFORMED NURSE DIRECTOR EMERGENCY SERVICES-THEY WERE GOING TO SEE IF THEYCOULD PULL IT OFF THE NEW IV TO BE PUT IN. Result Comment: Fast ing Glucose result from 100 to 125 mg/dLsuggests IMPAIRED HOMEOSTASIS per A.D.A. criteria. Performed By: #### L 100.0100, L500.4050 ####[facility] [address] [place], [address] Potassium [Moles/Vol] 3.6 mmol/L Normal 3.5-5.1 [facility] Comment on above: Order Comment: UTO-I NFORMED NURSE DIRECTOR EMERGENCY SERVICES-THEY WERE GOING TO SEE IF THEYCOULD PULL IT OFF THE NEW IV TO BE PUT IN. Performed By: #### L 100.0100, L500.4050 ####[facility] [address] [place], [address] Sodium [Moles/Vol] 137 mmol/L Normal 136-145 [facility] Comment on above: Order Comment: UTO-I NFORMED NURSE DIRECTOR EMERGENCY SERVICES-THEY WERE GOING TO SEE IF THEYCOULD PULL IT OFF THE NEW IV TO BE PUT IN. Performed By: #### L 100.0100, L500.4050 ####[facility] [address] [place], [address] T PROT 6.0 g/dL Low 6.4-8.2 [facility] Comment on above: Order Comment: UTO-I NFORMED NURSE DIRECTOR EMERGENCY SERVICES-THEY WERE GOING TO SEE IF THEYCOULD PULL IT OFF THE NEW IV TO BE PUT IN. Performed By: #### L 100.0100, L500.4050 ####[facility] [address] [place], [address] Urea nitrogen [Mass/Vol] 9 mg/dL Normal 7-18 [facility] Comment on above: Order Comment: UTO-I NFORMED NURSE DIRECTOR EMERGENCY SERVICES-THEY WERE GOING TO SEE IF THEYCOULD PULL IT OFF THE NEW IV TO BE PUT IN. Performed By: #### L 100.0100, L500.4050 ####[facility] [address] [place], [address] Comprehensive Metabolic Prof ilOrdered By: Jessica Thomas on 12-09-2023 Albumin/Globulin [Mass ratio] 0.9 {ratio} Normal 0.9-2.4 [facility] Comment on above: Order Comment: UTO-I NFORMED NURSE DIRECTOR EMERGENCY SERVICES-THEY WERE GOING TO SEE IF THEYCOULD PULL IT OFF THE NEW IV TO BE PUT IN. Performed By: #### L 100.0100, L500.4050 ####[facility] [address] [place], [place], [id number] ALT [Catalytic activity/Vol] 77 U/L High 13-56 [facility] Comment on above: Order Comment: UTO-I NFORMED NURSE DIRECTOR EMERGENCY SERVICES-THEY WERE GOING TO SEE IF THEYCOULD PULL IT OFF THE NEW IV TO BE PUT IN. Performed By: #### L 100.0100, L500.4050 ####[facility] [address] [place], [address] Globulin (S) [Mass/Vol] 3.2 g/dL Normal 2.2-4.2 [facility] Comment on above: Order Comment: UTO-I NFORMED NURSE DIRECTOR EMERGENCY SERVICES-THEY WERE GOING TO SEE IF THEYCOULD PULL IT OFF THE NEW IV TO BE PUT IN. Performed By: #### L 100.0100, L500.4050 ####[facility] [address] [place], [address] Laboratory - Chemistry and C hemistry - challengeOrdered By: Jessica Thomas on 12-09-2023 ALP [Catalytic activity/Vol] 139 U/L 45-117 [facility] Thin prep Papanicolaou smear with manual screeningOrdered By: Jessica Thomas on 12-09-2023 Thin prep Papanicolaou smear with manual screening 2.8 g/dL 3.2-5.0 [facility] Thin prep Papanicolaou smear with manual screening 54 U/L 15-37 [facility] Basic Metabolic Profile (BMP )on 12-08-2023 BUN/CRE 11.2 RATIO Normal 10-20 [facility] Comment on above: Performed By: #### L 100.0100, L500.2500 ####[facility] [address] [place], [address] CA,Total 8.1 mg/dL Low 8.5-10.1 [facility] Comment on above: Performed By: #### L 100.0100, L500.2500 ####[facility] [address] [place], [address] Chloride [Moles/Vol] 113 mmol/L High 98-107 [facility] Comment on above: Performed By: #### L 100.0100, L500.2500 ####[facility] [address] [place], [address] CO2 [Moles/Vol] 19.0 mmol/L Low 21.0-32.0 [facility] Comment on above: Performed By: #### L 100.0100, L500.2500 ####[facility] [address] [place], [address] Creatinine [Mass/Vol] 0.80 mg/dL Normal 0.55-1.02 [facility] Comment on above: Result Comment: The validity of the calculated GFR GFRAA in patients over70 years has not been determined. Clinical correlation isessential. Performed By: #### L 100.0100, L500.2500 ####[facility] [address] [place], [address] ECRCL 47.97 ml/min Normal [facility] Comment on above: Performed By: #### L 100.0100, L500.2500 ####[facility] [address] [place], [address] EST GFR - AA 90 mL/min Normal >60 [facility] Comment on above: Result Comment: Afri can Polish GFR Calc Performed By: #### L 100.0100, L500.2500 ####[facility] [address] [place], [address] GAP 8 Normal 5-15 [facility] Comment on above: Performed By: #### L 100.0100, L500.2500 ####[facility] [address] [place], [address] GFR/1.73 sq M.predicted among non-blacks MDRD (S/P/Bld) [Vol rate/Area] 75 mL/min/{1.73_m2} Normal >60 [facility] Comment on above: Result Comment: Non- GFR Calc Performed By: #### L 100.0100, L500.2500 ####[facility] [address] [place], [address] Glucose [Mass/Vol] 76 mg/dL Normal 74-106 [facility] Comment on above: Performed By: #### L 100.0100, L500.2500 ####[facility] [address] [place], [address] Potassium [Moles/Vol] 3.7 mmol/L Normal 3.5-5.1 [facility] Comment on above: Performed By: #### L 100.0100, L500.2500 ####[facility] [address] [place], [address] Sodium [Moles/Vol] 140 mmol/L Normal 136-145 [facility] Comment on above: Performed By: #### L 100.0100, L500.2500 ####[facility] [address] [place], [address] Urea nitrogen [Mass/Vol] 9 mg/dL Normal 7-18 [facility] Comment on above: Performed By: #### L 100.0100, L500.2500 ####[facility] [address] [place], [address] CBC W/Diff, Automatedon 03-2 3-2023 Absolute Lymph 2.13 X10 3/uL Normal 0.83-4.51 [facility] Comment on above: Performed By: #### L 100.0100, L500.2500 ####[facility] [address] [place], [address] Absolute Neut 3.3 X10 3/uL Normal 2.0-7.7 [facility] Comment on above: Performed By: #### L 100.0100, L500.2500 ####[facility] [address] [place], [address] Basophils/100 WBC (Bld) 0.8 % Normal 0-1 [facility] Comment on above: Performed By: #### L 100.0100, L500.2500 ####[facility] [address] [place], [address] Eosinophils/100 WBC (Bld) 2.4 % Normal 0-5 [facility] Comment on above: Performed By: #### L 100.0100, L500.2500 ####[facility] [address] [place], [address] Erythrocyte distribution width (RBC) [Ratio] 16.4 % High 11.6-14.6 [facility] Comment on above: Performed By: #### L 100.0100, L500.2500 ####[facility] [address] [place], [address] Hematocrit (Bld) [Volume fraction] 25.6 % Low 37-47 [facility] Comment on above: Performed By: #### L 100.0100, L500.2500 ####[facility] [address] [place], [address] Hemoglobin (Bld) [Mass/Vol] 7.9 g/dL Low 12.0-15.0 [facility] Comment on above: Performed By: #### L 100.0100, L500.2500 ####[facility] [address] [place], [address] IG% 0.300 Normal 0.0-0.9 [facility] Comment on above: Result Comment: IG% - Immature Granulocytes (promyelocytes, myelocytes andmetamyelocytes) > 1% indicates that a LEFT SHIFT is Present. Performed By: #### L 100.0100, L500.2500 ####[facility] [address] [place], [address] Lymphocytes/100 WBC (Bld) 34.5 % Normal 19-41 [facility] Comment on above: Performed By: #### L 100.0100, L500.2500 ####[facility] [address] [place], [address] MCH (RBC) [Entitic mass] 26.7 pg Low 27.0-32.0 [facility] Comment on above: Performed By: #### L 100.0100, L500.2500 ####[facility] [address] [place], [address] MCHC (RBC) [Mass/Vol] 30.9 g/dL Low 32-36 [facility] Comment on above: Performed By: #### L 100.0100, L500.2500 ####[facility] [address] [place], [address] MCV (RBC) [Entitic vol] 86.5 fL Normal 81-99 [facility] Comment on above: Performed By: #### L 100.0100, L500.2500 ####[facility] [address] [place], [address] Monocytes/100 WBC (Bld) 8.6 % Normal 0-10 [facility] Comment on above: Performed By: #### L 100.0100, L500.2500 ####[facility] [address] [place], [address] Neutrophils/100 WBC (Bld) 53.4 % Normal 47-70 [facility] Comment on above: Performed By: #### L 100.0100, L500.2500 ####[facility] [address] [place], [address] Nucleated RBC (Bld) [#/Vol] 0 10*3/uL Normal 0-5 [facility] Comment on above: Performed By: #### L 100.0100, L500.2500 ####[facility] [address] [place], [address] Platelet mean volume (Bld) [Entitic vol] 10.4 fL Normal 6.2-12.0 [facility] Comment on above: Performed By: #### L 100.0100, L500.2500 ####[facility] [address] [place], [address] Platelets (Bld) [#/Vol] 256 10*3/uL Normal 150-450 [facility] Comment on above: Performed By: #### L 100.0100, L500.2500 ####[facility] [address] [place], [address] RBC (Bld) [#/Vol] 2.96 10*6/uL Low 4.2-5.4 [facility] Comment on above: Performed By: #### L 100.0100, L500.2500 ####[facility] [address] [place], [address] RDW SD 52.1 fl High 35.1-43.9 [facility] Comment on above: Performed By: #### L 100.0100, L500.2500 ####[facility] [address] [place], [address] WBC (Bld) [#/Vol] 6.2 10*3/uL Normal 4.4-11.0 [facility] Comment on above: Performed By: #### L 100.0100, L500.2500 ####[facility] [address] [place], [address] CDIFF (PCR)on 12-08-2023 CDIFF Normal [facility] Comment on above: Performed By: #### M 100.6796 ####[facility] [address] [place], [address] Clostridioides difficile nuc leic acid assay by PCROrdered By: Jessica Thomas on 12-08-2023 C. difficile DNA RENATA+probe Ql (Unsp spec) [facility] HH, Hemoglobin AND Hematocri ton 12-08-2023 Hematocrit (Bld) [Volume fraction] 26.0 % Low 37-47 [facility] Comment on above: Performed By: #### L 100.0600 ####[facility] [address] [place], [address] Hemoglobin (Bld) [Mass/Vol] 8.1 g/dL Low 12.0-15.0 [facility] Comment on above: Performed By: #### L 100.0600 ####[facility] [address] [place], [address] Stool Occult Blood iFOBon STOB Positive Normal [facility] Comment on above: Performed By: #### M 100.7900 ####[facility] [address] [place], [address] Abdomen Single View (Portabl e)on 12-07-2023 Abdomen Single View (Portable) Normal [facility] Basophil percentageOrdered B y: Jessica White on 12-07-2023 Basophil percentage 3.1 mg/dL 2.5-4.9 [facility] CBC W/Diff, Automatedon 11-16 Absolute Lymph 3.29 X10 3/uL Normal 0.83-4.51 [facility] Comment on above: Performed By: #### L 100.0100, L300.3900, L500.4050 ####[facility] [address] [place], [address] Absolute Neut 5.5 X10 3/uL Normal 2.0-7.7 [facility] Comment on above: Performed By: #### L 100.0100, L300.3900, L500.4050 ####[facility] [address] [place], [address] Basophils/100 WBC (Bld) 0.5 % Normal 0-1 [facility] Comment on above: Performed By: #### L 100.0100, L300.3900, L500.4050 ####[facility] [address] [place], [address] Eosinophils/100 WBC (Bld) 0.7 % Normal 0-5 [facility] Comment on above: Performed By: #### L 100.0100, L300.3900, L500.4050 ####[facility] [address] [place], [address] Erythrocyte distribution width (RBC) [Ratio] 16.5 % High 11.6-14.6 [facility] Comment on above: Performed By: #### L 100.0100, L300.3900, L500.4050 ####[facility] [address] [place], [address] Hematocrit (Bld) [Volume fraction] 28.0 % Low 37-47 [facility] Comment on above: Performed By: #### L 100.0100, L300.3900, L500.4050 ####[facility] [address] [place], [address] Hemoglobin (Bld) [Mass/Vol] 8.8 g/dL Low 12.0-15.0 [facility] Comment on above: Performed By: #### L 100.0100, L300.3900, L500.4050 ####[facility] [address] [place], [address] IG% 0.200 Normal 0.0-0.9 [facility] Comment on above: Result Comment: IG% - Immature Granulocytes (promyelocytes, myelocytes andmetamyelocytes) > 1% indicates that a LEFT SHIFT is Present. Performed By: #### L 100.0100, L300.3900, L500.4050 ####[facility] [address] [place], [address] Lymphocytes/100 WBC (Bld) 33.2 % Normal 19-41 [facility] Comment on above: Performed By: #### L 100.0100, L300.3900, L500.4050 ####[facility] [address] [place], [address] MCH (RBC) [Entitic mass] 27.0 pg Normal 27.0-32.0 [facility] Comment on above: Performed By: #### L 100.0100, L300.3900, L500.4050 ####[facility] [address] [place], [address] MCHC (RBC) [Mass/Vol] 31.4 g/dL Low 32-36 [facility] Comment on above: Performed By: #### L 100.0100, L300.3900, L500.4050 ####[facility] [address] [place], [address] MCV (RBC) [Entitic vol] 85.9 fL Normal 81-99 [facility] Comment on above: Performed By: #### L 100.0100, L300.3900, L500.4050 ####[facility] [address] [place], [address] Monocytes/100 WBC (Bld) 9.6 % Normal 0-10 [facility] Comment on above: Performed By: #### L 100.0100, L300.3900, L500.4050 ####[facility] [address] [place], [address] Neutrophils/100 WBC (Bld) 55.8 % Normal 47-70 [facility] Comment on above: Performed By: #### L 100.0100, L300.3900, L500.4050 ####[facility] [address] [place], [address] Nucleated RBC (Bld) [#/Vol] 0 10*3/uL Normal 0-5 [facility] Comment on above: Performed By: #### L 100.0100, L300.3900, L500.4050 ####[facility] [address] [place], [address] Platelet mean volume (Bld) [Entitic vol] 10.2 fL Normal 6.2-12.0 [facility] Comment on above: Performed By: #### L 100.0100, L300.3900, L500.4050 ####[facility] [address] [place], [address] Platelets (Bld) [#/Vol] 327 10*3/uL Normal 150-450 [facility] Comment on above: Performed By: #### L 100.0100, L300.3900, L500.4050 ####[facility] [address] [place], [address] RBC (Bld) [#/Vol] 3.26 10*6/uL Low 4.2-5.4 [facility] Comment on above: Performed By: #### L 100.0100, L300.3900, L500.4050 ####[facility] [address] [place], [address] RDW SD 52.0 fl High 35.1-43.9 [facility] Comment on above: Performed By: #### L 100.0100, L300.3900, L500.4050 ####[facility] [address] [place], [address] WBC (Bld) [#/Vol] 9.9 10*3/uL Normal 4.4-11.0 [facility] Comment on above: Performed By: #### L 100.0100, L300.3900, L500.4050 ####[facility] [address] [place], [address] Comprehensive Metabolic Prof [facility] 12-07-2023 Albumin [Mass/Vol] 3.2 g/dL Normal 3.2-5.0 [facility] Comment on above: Performed By: #### L 100.0100, L300.3900, L500.4050 ####[facility] [address] [place], [address] Albumin/Globulin [Mass ratio] 1.1 {ratio} Normal 0.9-2.4 [facility] Comment on above: Performed By: #### L 100.0100, L300.3900, L500.4050 ####[facility] [address] [place], [address] ALK P 115 U/L Normal 45-117 [facility] Comment on above: Performed By: #### L 100.0100, L300.3900, L500.4050 ####[facility] [address] [place], [address] ALT [Catalytic activity/Vol] 68 U/L High 13-56 [facility] Comment on above: Performed By: #### L 100.0100, L300.3900, L500.4050 ####[facility] [address] [place], [address] AST [Catalytic activity/Vol] 153 U/L High 15-37 [facility] Comment on above: Performed By: #### L 100.0100, L300.3900, L500.4050 ####[facility] [address] [place], [address] Bilirubin [Mass/Vol] 0.90 mg/dL Normal 0.20-1.00 [facility] Comment on above: Result Comment: For patients on eltrombopag therapy, use of Dimension [place] TBIL is not recommended. Performed By: #### L 100.0100, L300.3900, L500.4050 ####[facility] [address] [place], [address] BUN/CRE 9.2 RATIO Low 10-20 [facility] Comment on above: Performed By: #### L 100.0100, L300.3900, L500.4050 ####[facility] [address] [place], [address] CA,Total 8.6 mg/dL Normal 8.5-10.1 [facility] Comment on above: Performed By: #### L 100.0100, L300.3900, L500.4050 ####[facility] [address] [place], [address] Chloride [Moles/Vol] 112 mmol/L High 98-107 [facility] Comment on above: Performed By: #### L 100.0100, L300.3900, L500.4050 ####[facility] [address] [place], [address] CO2 [Moles/Vol] 23.0 mmol/L Normal 21.0-32.0 [facility] Comment on above: Performed By: #### L 100.0100, L300.3900, L500.4050 ####[facility] [address] [place], [address] Creatinine [Mass/Vol] 1.20 mg/dL High 0.55-1.02 [facility] Comment on above: Result Comment: The validity of the calculated GFR GFRAA in patients over70 years has not been determined. Clinical correlation isessential. Performed By: #### L 100.0100, L300.3900, L500.4050 ####[facility] [address] [place], [address] ECRCL 31.98 ml/min Normal [facility] Comment on above: Performed By: #### L 100.0100, L300.3900, L500.4050 ####[facility] [address] [place], [address] EST GFR - AA 57 mL/min Low >60 [facility] Comment on above: Result Comment: Afri can Polish GFR Calc Performed By: #### L 100.0100, L300.3900, L500.4050 ####[facility] [address] [place], [address] GAP 8 Normal 5-15 [facility] Comment on above: Performed By: #### L 100.0100, L300.3900, L500.4050 ####[facility] [address] [place], [address] GFR/1.73 sq M.predicted among non-blacks MDRD (S/P/Bld) [Vol rate/Area] 47 mL/min/{1.73_m2} Low >60 [facility] Comment on above: Result Comment: Non- GFR Calc Performed By: #### L 100.0100, L300.3900, L500.4050 ####[facility] [address] [place], [address] Globulin (S) [Mass/Vol] 2.9 g/dL Normal 2.2-4.2 [facility] Comment on above: Performed By: #### L 100.0100, L300.3900, L500.4050 ####[facility] [address] [place], [address] Glucose [Mass/Vol] 92 mg/dL Normal 74-106 [facility] Comment on above: Performed By: #### L 100.0100, L300.3900, L500.4050 ####[facility] [address] [place], [address] Potassium [Moles/Vol] 3.7 mmol/L Normal 3.5-5.1 [facility] Comment on above: Performed By: #### L 100.0100, L300.3900, L500.4050 ####[facility] [address] [place], [address] Sodium [Moles/Vol] 143 mmol/L Normal 136-145 [facility] Comment on above: Performed By: #### L 100.0100, L300.3900, L500.4050 ####[facility] [address] [place], [address] T PROT 6.1 g/dL Low 6.4-8.2 [facility] Comment on above: Performed By: #### L 100.0100, L300.3900, L500.4050 ####[facility] [address] [place], [address] Urea nitrogen [Mass/Vol] 11 mg/dL Normal 7-18 [facility] Comment on above: Performed By: #### L 100.0100, L300.3900, L500.4050 ####[facility] [address] [place], [address] Consultation - Surgicalon Consultation - Surgical Normal [facility] ENTERIC PATHOGEN PANEL STOOL on 12-07-2023 EP PANEL Normal [facility] Comment on above: Performed By: #### M 100.638, M100.637 ####[facility] [address] [place], [address] H AND P Exam - Hospitaliston 12-07-2023 H&P Exam - Hospitalist Normal [facility] Laboratory - Chemistry and C hemistry - challengeOrdered By: Jessica Thomas on 12-07-2023 Magnesium [Mass/Vol] 1.9 mg/dL 1.6-2.6 [facility] Laboratory - CoagulationOrde red By: Jessica Thomas on 12-07-2023 INR Coag (Bld) [Relative time] 1.1 {INR} [facility] PT Coag (PPP) [Time] 13.9 s 11.7-14.9 [facility] Magnesiumon 12-07-2023 Magnesium [Mass/Vol] 1.9 mg/dL Normal 1.6-2.6 [facility] Comment on above: Order Comment: Comme nts: May add to ED labsComments: may add to ED labs Performed By: #### L 501.2300, L501.5200, L300.3900 ####[facility] [address] [place], [address] Phosphoruson 12-07-2023 Phosphate [Mass/Vol] 3.1 mg/dL Normal 2.5-4.9 [facility] Comment on above: Order Comment: Comme nts: May add to ED labsComments: may add to ED labs Performed By: #### L 501.2300, L501.5200, L300.3900 ####[facility] [address] [place], [address] Prothrombin Time w/INRon INR Coag (PPP) [Relative time] 1.1 {INR} Normal [facility] Comment on above: Performed By: #### L 100.0100, L300.3900, L500.4050 ####[facility] [address] [place], [address] PT Coag (PPP) [Time] 13.9 s Normal 11.7-14.9 [facility] Comment on above: Performed By: #### L 100.0100, L300.3900, L500.4050 ####[facility] [address] [place], [address] INR Normal [facility] Comment on above: Result Comment: DUPL ICATE Performed By: #### L 501.2300, L501.5200, L300.3900 ####[facility] [address] [place], [address] PROTIME Normal 11.7-14.9 [facility] Comment on above: Result Comment: DUPL ICATE Performed By: #### L 501.2300, L501.5200, L300.3900 ####[facility] [address] [place], [address] RESPIRATORY PANEL MOLECULARo n 12-07-2023 RP PANEL Normal [facility] Comment on above: Performed By: #### M 100.638, M100.637 ####[facility] [address] [place], [address] Respiratory pathogens detect ion panel by molecular detection methodOrdered By: Jessica Thomas on 12-07-2023 Respiratory pathogens DNA and RNA panel RENATA+probe (Resp) [facility] Abdomen/Pelvis W IV Cont ONL Yon 12-06-2023 Abdomen/Pelvis W IV Cont ONLY Normal [facility] Absolute lymphocyte countOrd ered By: Federico Monique on 12-06-2023 Lymphocytes Auto (Unsp spec) [#/Vol] 3.30 10*3/uL 0.83-4.51 [facility] Automated lymphocyte count a s percentage of total leukocytesOrdered By: Federico Monique on 12-06-2023 Lymphocytes/100 WBC Auto (Unsp spec) 44.8 % 19-41 [facility] Basophil percentageOrdered B y: Federico Monique on 12-06-2023 Lactate [Moles/Vol] 1.2 mmol/L Normal 0.4-1.9 [facility] Comment on above: Order Comment: Y Performed By: #### L 500.4050, L503.6005, L501.2450, L100.0100 ####[facility] [address] [place], [address] Basophils/100 WBC (Bld) 0.8 % 0-1 [facility] Bilirubin [Mass/Vol] 0.50 mg/dL 0.20-1.00 [facility] Comment on above: For patients on eltr ombopag therapy, use of Dimension [place] TBIL is not recommended. Chloride [Moles/Vol] 113 mmol/L 98-107 [facility] Eosinophils/100 WBC (Bld) 0.8 % 0-5 [facility] Glucose [Mass/Vol] 100 mg/dL 74-106 [facility] Comment on above: Fasting Glucose resu lt from 100 to 125 mg/dL suggests IMPAIRED HOMEOSTASIS per A.D.A. criteria. Hemoglobin (Bld) [Mass/Vol] 10.1 g/dL 12.0-15.0 [facility] Monocytes/100 WBC (Bld) 8.4 % 0-10 [facility] Neutrophils (Bld) [#/Vol] 3.3 10*3/uL 2.0-7.7 [facility] Neutrophils/100 WBC (Bld) 44.7 % 47-70 [facility] Potassium [Moles/Vol] 4.7 mmol/L 3.5-5.1 [facility] Comment on above: Moderate Hemolysis, Result may be falsely increased. Protein [Mass/Vol] 7.4 g/dL 6.4-8.2 [facility] Sodium [Moles/Vol] 141 mmol/L 136-145 [facility] WBC (Bld) [#/Vol] 7.4 10*3/uL 4.4-11.0 [facility] Blood platelet adequacy dete ction by light microscopyOrdered By: Federico Monique on 12-06-2023 Platelets LM Ql (Bld) ADEQUATE ADEQ [facility] CBC W/Diff, Automatedon 11-16 Anisocytosis Ql (Bld) RARE Normal [facility] Comment on above: Performed By: #### L 500.4050, L503.6005, L501.2450, L100.0100 ####[facility] [address] [place], [address] OVALOCYTE RARE Normal [facility] Comment on above: Performed By: #### L 500.4050, L503.6005, L501.2450, L100.0100 ####[facility] [address] [place], [address] RED CELL MORPH N CHROM Normal NORM C C [facility] Comment on above: Performed By: #### L 500.4050, L503.6005, L501.2450, L100.0100 ####[facility] [address] [place], [address] PLT EST ADEQUATE Normal [facility] Comment on above: Performed By: #### L 500.4050, L503.6005, L501.2450, L100.0100 ####[facility] [address] [place], [address] Comprehensive Metabolic Prof ilon 12-06-2023 Albumin [Mass/Vol] 3.5 g/dL Normal 3.2-5.0 [facility] Comment on above: Performed By: #### L 500.4050, L503.6005, L501.2450, L100.0100 ####[facility] [address] [place], [address] Albumin/Globulin [Mass ratio] 0.9 {ratio} Normal 0.9-2.4 [facility] Comment on above: Performed By: #### L 500.4050, L503.6005, L501.2450, L100.0100 ####[facility] [address] [place], [address] ALK P 78 U/L Normal 45-117 [facility] Comment on above: Performed By: #### L 500.4050, L503.6005, L501.2450, L100.0100 ####[facility] [address] [place], [address] ALT [Catalytic activity/Vol] 22 U/L Normal 13-56 [facility] Comment on above: Performed By: #### L 500.4050, L503.6005, L501.2450, L100.0100 ####[facility] [address] [place], [address] AST [Catalytic activity/Vol] 43 U/L High 15-37 [facility] Comment on above: Result Comment: Mode rate Hemolysis, Result may be falsely increased. Performed By: #### L 500.4050, L503.6005, L501.2450, L100.0100 ####[facility] [address] [place], [address] Bilirubin [Mass/Vol] 0.50 mg/dL Normal 0.20-1.00 [facility] Comment on above: Result Comment: For patients on eltrombopag therapy, use of Dimension [place] TBIL is not recommended. Performed By: #### L 500.4050, L503.6005, L501.2450, L100.0100 ####[facility] [address] [place], [address] BUN/CRE 10.8 RATIO Normal 10-20 [facility] Comment on above: Performed By: #### L 500.4050, L503.6005, L501.2450, L100.0100 ####[facility] [address] [place], [address] CA,Total 9.5 mg/dL Normal 8.5-10.1 [facility] Comment on above: Performed By: #### L 500.4050, L503.6005, L501.2450, L100.0100 ####[facility] [address] [place], [address] Chloride [Moles/Vol] 113 mmol/L High 98-107 [facility] Comment on above: Performed By: #### L 500.4050, L503.6005, L501.2450, L100.0100 ####[facility] [address] [place], [address] CO2 [Moles/Vol] 22.0 mmol/L Normal 21.0-32.0 [facility] Comment on above: Performed By: #### L 500.4050, L503.6005, L501.2450, L100.0100 ####[facility] [address] [place], [address] Creatinine [Mass/Vol] 1.11 mg/dL High 0.55-1.02 [facility] Comment on above: Result Comment: The validity of the calculated GFR GFRAA in patients over70 years has not been determined. Clinical correlation isessential. Performed By: #### L 500.4050, L503.6005, L501.2450, L100.0100 ####[facility] [address] [place], [address] ECRCL 34.57 ml/min Normal [facility] Comment on above: Performed By: #### L 500.4050, L503.6005, L501.2450, L100.0100 ####[facility] [address] [place], [address] EST GFR - AA 62 mL/min Normal >60 [facility] Comment on above: Result Comment: Afri can Polish GFR Calc Performed By: #### L 500.4050, L503.6005, L501.2450, L100.0100 ####[facility] [address] [place], [address] GAP 6 Normal 5-15 [facility] Comment on above: Performed By: #### L 500.4050, L503.6005, L501.2450, L100.0100 ####[facility] [address] [place], [address] GFR/1.73 sq M.predicted among non-blacks MDRD (S/P/Bld) [Vol rate/Area] 51 mL/min/{1.73_m2} Low >60 [facility] Comment on above: Result Comment: Non- GFR Calc Performed By: #### L 500.4050, L503.6005, L501.2450, L100.0100 ####[facility] [address] [place], [address] Globulin (S) [Mass/Vol] 3.9 g/dL Normal 2.2-4.2 [facility] Comment on above: Performed By: #### L 500.4050, L503.6005, L501.2450, L100.0100 ####[facility] [address] [place], [address] Glucose [Mass/Vol] 100 mg/dL Normal 74-106 [facility] Comment on above: Result Comment: Fast ing Glucose result from 100 to 125 mg/dLsuggests IMPAIRED HOMEOSTASIS per A.D.A. criteria. Performed By: #### L 500.4050, L503.6005, L501.2450, L100.0100 ####[facility] [address] [place], [address] Potassium [Moles/Vol] 4.7 mmol/L Normal 3.5-5.1 [facility] Comment on above: Result Comment: Mode rate Hemolysis, Result may be falsely increased. Performed By: #### L 500.4050, L503.6005, L501.2450, L100.0100 ####[facility] [address] [place], [address] Sodium [Moles/Vol] 141 mmol/L Normal 136-145 [facility] Comment on above: Performed By: #### L 500.4050, L503.6005, L501.2450, L100.0100 ####[facility] [address] [place], [address] T PROT 7.4 g/dL Normal 6.4-8.2 [facility] Comment on above: Performed By: #### L 500.4050, L503.6005, L501.2450, L100.0100 ####[facility] [address] [place], [address] Urea nitrogen [Mass/Vol] 12 mg/dL Normal 7-18 [facility] Comment on above: Performed By: #### L 500.4050, L503.6005, L501.2450, L100.0100 ####[facility] [address] [place], [address] Determination of erythrocyte mean corpuscular volume (MCV)Ordered By: Federico Monique on 12-06-2023 MCV (RBC) [Entitic vol] 85.2 fL 81-99 [facility] Emergency Department Summary on 12-06-2023 Emergency Department Summary Normal [facility] Erythrocyte distribution wid th ratioOrdered By: Federico Monique on 12-06-2023 Erythrocyte distribution width (RBC) [Ratio] 16.6 % 11.6-14.6 [facility] Erythrocyte distribution wid th standard deviationOrdered By: Federico Monique on 12-06-2023 Erythrocyte distribution width (RBC) [Entitic vol] 51.6 fL 35.1-43.9 [facility] Hematocrit Auto (Bld) [Volum e fraction]Ordered By: Federico Monique on 12-06-2023 Hematocrit (Bld) [Volume fraction] 32.2 % 37-47 [facility] Immature granulocytes/100 WB C Auto (Bld)Ordered By: Federico Monique on 12-06-2023 Immature granulocytes/100 WBC (Bld) 0.500 % 0.0-0.9 [facility] Comment on above: IG% - Immature Granu locytes (promyelocytes, myelocytes and metamyelocytes) > 1% indicates that a LEFT SHIFT is Present. Laboratory - Chemistry and C hemistry - challengeOrdered By: Federico Monique on 12-06-2023 Albumin/Globulin [Mass ratio] 0.9 {ratio} 0.9-2.4 [facility] ALP [Catalytic activity/Vol] 78 U/L 45-117 [facility] ALT [Catalytic activity/Vol] 22 U/L 13-56 [facility] CO2 [Moles/Vol] 22.0 mmol/L 21.0-32.0 [facility] Globulin (S) [Mass/Vol] 3.9 g/dL 2.2-4.2 [facility] Lipase [Catalytic activity/Vol] 36 U/L - [facility] Comment on above: Please note:LIPASE r evised reference range effective 22. New Lipase methodology. Expected to produce lower values than the previous assay method. NEW Reference Range: 13 - 75 U/L Urea nitrogen/Creatinine [Mass ratio] 10.8 mg/mg 10-20 [facility] Laboratory - Hematology and Cell countsOrdered By: Federico Monique on 12-06-2023 Anisocytosis Ql (Bld) RARE [facility] MCH (RBC) [Entitic mass] 26.7 pg 27.0-32.0 [facility] MCHC (RBC) [Mass/Vol] 31.4 g/dL 32-36 [facility] Nucleated RBC/100 WBC (Bld) [Ratio] 0 % 0-5 [facility] Platelet mean volume (Bld) [Entitic vol] 11.1 fL 6.2-12.0 [facility] Platelets (Bld) [#/Vol] 281 10*3/uL 150-450 [facility] Lipaseon 12-06-2023 Lipase [Catalytic activity/Vol] 36 U/L Normal 13-75 [facility] Comment on above: Result Comment: Plea se note:LIPASE revised reference range effective 22.New Lipase methodology. Expected to produce lower valuesthan the previous assay method.NEW Reference Range: 13 - 75 U/L Performed By: #### L 500.4050, L503.6005, L501.2450, L100.0100 ####[facility] [address] [place], [address] No Panel InformationOrdered By: Federico Monique on 12-06-2023 Estimated Creatinine Clearance Calc 34.57 ml/min [facility] Estimated GFR (MDRD) Amer 62 mL/min >60 [facility] Comment on above: GFR Calc Estimated GFR (MDRD) Non-Af Amer 51 mL/min >60 [facility] Comment on above: Non- GFR Calc Ovalocyte detectionOrdered B y: Federico Monique on 12-06-2023 Ovalocytes LM Ql (Bld) RARE [facility] RBC Auto (Bld) [#/Vol]Ordere d By: Federico Monique on 12-06-2023 RBC (Bld) [#/Vol] 3.78 10*6/uL 4.2-5.4 [facility] RBC morphologyOrdered By: Rodri Monique on 12-06-2023 RBC morphology finding Nom (Bld) N CHROM NORMAL NORM C&C [facility] Serum or plasma calcium franck urement (mass/volume)Ordered By: Federico Monique on 12-06-2023 Calcium [Mass/Vol] 9.5 mg/dL 8.5-10.1 [facility] Serum or plasma creatinine m easurement (mass/volume)Ordered By: Federico Monique on 12-06-2023 Creatinine [Mass/Vol] 1.11 mg/dL 0.55-1.02 [facility] Comment on above: The validity of the calculated GFR & GFRAA in patients over 70 years has not been determined. Clinical correlation is essential. Serum or plasma urea nitroge n measurement (mass/volume)Ordered By: Federico Monique on 12-06-2023 Urea nitrogen [Mass/Vol] 12 mg/dL 7-18 [facility] Thin prep Papanicolaou smear with manual screeningOrdered By: Federico Monique on 12-06-2023 Thin prep Papanicolaou smear with manual screening 3.5 g/dL 3.2-5.0 [facility] Thin prep Papanicolaou smear with manual screening 43 U/L 15-37 [facility] Comment on above: Moderate Hemolysis, Result may be falsely increased. Thin prep Papanicolaou smear with manual screening 6 5-15 [facility] Basic metabolic 2000 panelon 07-24-2023 Anion gap [Moles/Vol] 16 mmol/L 9 - 18 mmol/L [facility] Calcium [Mass/Vol] 9.6 mg/dL 8.5 - 10. 2 mg/dL [facility] Chloride [Moles/Vol] 105 mmol/L 97 - 10 5 mmol/L [facility] CO2 [Moles/Vol] 19 mmol/L Low 22 - 30 mmol/L [facility] Creatinine [Mass/Vol] 1.16 mg/dL High 0.58 - 0.96 mg/dL [facility] Estimated Glomerular Filtration Rate 50 mL/min/1.73m Low >=60 mL/min/1.73m [facility] Glucose [Mass/Vol] 108 mg/dL High 74 - 99 mg/dL [facility] Potassium [Moles/Vol] 4.4 mmol/L 3.7 - 5.1 mmol/L [facility] Sodium [Moles/Vol] 140 mmol/L 136 - 144 mmol/L [facility] Urea nitrogen [Mass/Vol] 14 mg/dL 7 - 21 mg/dL [facility] CBC panel Auto (Bld)on 07-24 Erythrocyte distribution width (RBC) [Ratio] 15.0 % 11.5 - 15.0 % [facility] Hematocrit (Bld) [Volume fraction] 34.3 % Low 36.0 - 46.0 % [facility] Hemoglobin (Bld) [Mass/Vol] 11.0 g/dL Low 11.5 - 15.5 g/dL [facility] MCH (RBC) [Entitic mass] 28.4 pg 26.0 - 34.0 pg [facility] MCHC (RBC) [Mass/Vol] 32.1 g/dL 30.5 - 36.0 g/dL [facility] MCV (RBC) [Entitic vol] 88.4 fL 80.0 - 100.0 fL [facility] Nucleated RBC (Bld) [#/Vol] <0.01 k/uL [facility] Platelet mean volume (Bld) [Entitic vol] 10.3 fL 9.0 - 12.7 fL [facility] Platelets (Bld) [#/Vol] 427 10*3/uL High 150 - 400 k/uL [facility] RBC (Bld) [#/Vol] 3.88 10*6/uL Low 3.90 - 5.2 0 m/uL [facility] WBC (Bld) [#/Vol] 9.61 10*3/uL 3.70 - 11. 00 k/uL [facility] TSH BLDon 07-24-2023 TSH Qn 2.150 m[IU]/L 0.270 - 4.200 mIU/L [facility] XR CHEST 2V FRONTAL/LATon [facility] Basophil percentageOrdered B y: Matt Dominguez on 04-01-2023 Lactate [Moles/Vol] 1.2 mmol[facility]L [facility].4[facility] 0 SEEN /hpf 0-5 [facility] Bilirubin Test strip Ql (U)O rdered By: Matt Dominguez on 04-01-2023 Bilirubin Ql (U) Negative Negative [facility] Ketones Test strip Ql (U)Ord ered By: Matt Dominguez on 04-01-2023 Ketones Ql (U) 5 mg/dl Negative [facility] Mucus LM Ql (Urine sed)Order ed By: Matt Dominguez on 04-01-2023 Mucus Ql (Urine sed) 0 SEEN /hpf [facility] Nitrite Test strip Ql (U)Ord ered By: Matt Dominguez on 04-01-2023 Nitrite Ql (U) Negative Negative [facility] Protein Test strip Ql (U)Ord ered By: Matt Dominguez on 04-01-2023 Protein Ql (U) 15 mg/dl Negative [facility] Squamous epithelial cells de tection in urine sediment by light microscopyOrdered By: Matt Dominguez on 04-01-2023 Epithelial cells.squamous LM Ql (Urine sed) 0 SEEN /hpf 5-10 [facility] Urine blood detectionOrdered By: Matt Dominguez on 04-01-2023 RBC Ql (U) 10 /ul Negative [facility] RBC Ql (U) 0 SEEN /hpf 0-5 [facility] Urine clarityOrdered By: Madi Dominguez on 04-01-2023 Clarity (U) Clear Clear [facility] Urine color determinationOrd ered By: Matt Dominguez on 04-01-2023 Color (U) Yellow Yellow [facility] Urine glucose detectionOrder ed By: Matt Dominguez on 04-01-2023 Glucose Ql (U) Normal mg/dl Normal [facility] Urine leukocyte esterase det ection by dipstickOrdered By: Matt Dominguez on 04-01-2023 Leukocyte esterase Test strip Ql (U) 25 /ul Negative [facility] Urine pHOrdered By: Matt ramos on 04-01-2023 pH (U) 7.0 [pH] 5.0 - 8.0 [facility] Urine sediment bacteria coun t by microscopy (number/high power field)Ordered By: Matt Dominguez on 04-01-2023 Bacteria LM.HPF (Urine sed) [#/Area] 0 /[HPF] None Seen [facility] Urine specific gravity measu rementOrdered By: Matt Dominguez on 04-01-2023 Specific gravity (U) [Rel density] 1.005 1.002-1.030 [facility] Urobilinogen Auto test strip Ql (U)Ordered By: Matt Dominguez on 04-01-2023 Urobilinogen Ql (U) Normal mg/dl Normal [facility] Absolute lymphocyte countOrd ered By: Matt Dominguez on 03-31-2023 Lymphocytes Auto (Unsp spec) [#/Vol] 3.32 10*3/uL 0.83-4.51 [facility] Basophil percentageOrdered B y: Matt Dominguez on 03-31-2023 Basophils/100 WBC (Bld) 0.3 % 0-1 [facility] Bilirubin [Mass/Vol] 0.70 mg/dL 0.20-1.00 [facility] Comment on above: For patients on eltr ombopag therapy, use of Dimension [place] TBIL is not recommended. Chloride [Moles/Vol] 103 mmol/L 98-107 [facility] Eosinophils/100 WBC (Bld) 0.2 % 0-5 [facility] Glucose [Mass/Vol] 124 mg/dL 74-106 [facility] Comment on above: Fasting Glucose resu lt from 100 to 125 mg/dL suggests IMPAIRED HOMEOSTASIS per A.D.A. criteria. Neutrophils (Bld) [#/Vol] 6.2 10*3/uL 2.0-7.7 [facility] Neutrophils/100 WBC (Bld) 59.3 % 47-70 [facility] Potassium [Moles/Vol] 3.4 mmol/L 3.5-5.1 [facility] Protein [Mass/Vol] 7.5 g/dL 6.4-8.2 [facility] Sodium [Moles/Vol] 136 mmol/L 136-145 [facility] WBC (Bld) [#/Vol] 10.4 10*3/uL 4.4-11.0 [facility] Blood erythrocytes count (nu mber/volume)Ordered By: Matt Dominguez on 03-31-2023 RBC (Bld) [#/Vol] 3.95 10*6/uL 4.2-5.4 [facility] Blood hemoglobin measurement (mass/volume)Ordered By: Matt Dominguez on 03-31-2023 Hemoglobin (Bld) [Mass/Vol] 11.2 g/dL 12.0-15.0 [facility] Blood lymphocytes/100 leukoc ytesOrdered By: Matt Dominguez on 03-31-2023 Lymphocytes/100 WBC (Bld) 31.9 % 19-41 [facility] Blood monocytes/100 leukocyt esOrdered By: Matt Dominguez on 03-31-2023 Monocytes/100 WBC (Bld) 7.2 % 0-10 [facility] Blood platelet mean volumeOr dered By: Matt Dominguez on 03-31-2023 Platelet mean volume (Bld) [Entitic vol] 10.2 fL 6.2-12.0 [facility] Determination of erythrocyte mean corpuscular volume (MCV)Ordered By: Matt Dominguez on 03-31-2023 MCV (RBC) [Entitic vol] 87.8 fL 81-99 [facility] Direct bilirubinOrdered By: Matt Dominguez on 03-31-2023 Bilirubin.direct [Mass/Vol] 0.20 mg/dL 0.00-0.30 [facility] Hematocrit Auto (Bld) [Volum e fraction]Ordered By: Matt Dominguez on 03-31-2023 Hematocrit (Bld) [Volume fraction] 34.7 % 37-47 [facility] Laboratory - Chemistry and C hemistry - challengeOrdered By: Matt Dominguez on 03-31-2023 ALP [Catalytic activity/Vol] 128 U/L 45-117 [facility] ALT [Catalytic activity/Vol] 24 U/L 13-56 [facility] CO2 [Moles/Vol] 20.0 mmol/L 21.0-32.0 [facility] Globulin (S) [Mass/Vol] 3.9 g/dL 2.2-4.2 [facility] Lipase [Catalytic activity/Vol] 21 U/L 13-75 [facility] Comment on above: Please note:LIPASE r evised reference range effective 22. New Lipase methodology. Expected to produce lower values than the previous assay method. NEW Reference Range: 13 - 75 U/L Urea nitrogen/Creatinine [Mass ratio] 6.9 mg/mg 10-20 [facility] Laboratory - Hematology and Cell countsOrdered By: Matt Dominguez on 03-31-2023 Erythrocyte distribution width (RBC) [Entitic vol] 44.0 fL 35.1-43.9 [facility] Erythrocyte distribution width (RBC) [Ratio] 13.7 % 11.6-14.6 [facility] Immature granulocytes/100 WBC (Bld) 1.100 % 0.0-0.9 [facility] Comment on above: IG% - Immature Granu locytes (promyelocytes, myelocytes and metamyelocytes) > 1% indicates that a LEFT SHIFT is Present. MCH (RBC) [Entitic mass] 28.4 pg 27.0-32.0 [facility] Nucleated RBC/100 WBC (Bld) [Ratio] 0 % 0-5 [facility] MCHC Auto (RBC) [Mass/Vol]Or dered By: Matt Dominguez on 03-31-2023 MCHC (RBC) [Mass/Vol] 32.3 g/dL 32-36 [facility] No Panel InformationOrdered By: Matt Dominguez on 03-31-2023 Estimated Creatinine Clearance Calc 29.72 ml/min [facility] Estimated GFR (MDRD) Amer 51 mL/min >60 [facility] Comment on above: GFR Calc Estimated GFR (MDRD) Non-Af Amer 42 mL/min >60 [facility] Comment on above: Non- GFR Calc Platelets bldOrdered By: Madi Dominguez on 03-31-2023 Platelets (Bld) [#/Vol] 464 10*3/uL 150-450 [facility] Serum or plasma albumin franck urement (mass/volume)Ordered By: Matt Dominguez on 03-31-2023 Albumin [Mass/Vol] 3.6 g/dL 3.2-5.0 [facility] Serum or plasma calcium franck urement (mass/volume)Ordered By: Matt Dominguez on 03-31-2023 Calcium [Mass/Vol] 9.3 mg/dL 8.5-10.1 [facility] Serum or plasma creatinine m easurement (mass/volume)Ordered By: Matt Dominguez on 03-31-2023 Creatinine [Mass/Vol] 1.31 mg/dL 0.55-1.02 [facility] Comment on above: The validity of the calculated GFR & GFRAA in patients over 70 years has not been determined. Clinical correlation is essential. Serum or plasma urea nitroge n measurement (mass/volume)Ordered By: Matt Dominguez on 03-31-2023 Urea nitrogen [Mass/Vol] 9 mg/dL 7-18 [facility] Thin prep Papanicolaou smear with manual screeningOrdered By: Matt Dominguez on 03-31-2023 Thin prep Papanicolaou smear with manual screening 19 U/L 15-37 [facility] Thin prep Papanicolaou smear with manual screening 13 5-15 [facility] Absolute lymphocyte countOrd ered By: Ivon Oliver on 03-18-2023 Lymphocytes Auto (Unsp spec) [#/Vol] 2.21 10*3/uL 0.83-4.51 [facility] Basophil percentageOrdered B y: Ivon Oliver on 03-18-2023 Basophils/100 WBC (Bld) 0.7 % 0-1 [facility] Bilirubin [Mass/Vol] 1.00 mg/dL 0.20-1.00 [facility] Comment on above: For patients on eltr ombopag therapy, use of Dimension [place] TBIL is not recommended. Chloride [Moles/Vol] 111 mmol/L 98-107 [facility] Eosinophils/100 WBC (Bld) 1.9 % 0-5 [facility] Glucose [Mass/Vol] 84 mg/dL 74-106 [facility] Neutrophils (Bld) [#/Vol] 4.4 10*3/uL 2.0-7.7 [facility] Neutrophils/100 WBC (Bld) 59.2 % 47-70 [facility] Potassium [Moles/Vol] 3.6 mmol/L 3.5-5.1 [facility] Protein [Mass/Vol] 6.1 g/dL 6.4-8.2 [facility] Sodium [Moles/Vol] 138 mmol/L 136-145 [facility] WBC (Bld) [#/Vol] 7.5 10*3/uL 4.4-11.0 [facility] Blood erythrocytes count (nu mber/volume)Ordered By: Ivon Oliver on 03-18-2023 RBC (Bld) [#/Vol] 3.15 10*6/uL 4.2-5.4 [facility] Blood hemoglobin measurement (mass/volume)Ordered By: Ivon Oliver on 03-18-2023 Hemoglobin (Bld) [Mass/Vol] 9.1 g/dL 12.0-15.0 [facility] Blood lymphocytes/100 leukoc ytesOrdered By: Ivon Oliver on 03-18-2023 Lymphocytes/100 WBC (Bld) 29.6 % 19-41 [facility] Blood monocytes/100 leukocyt esOrdered By: Ivon Oliver on 03-18-2023 Monocytes/100 WBC (Bld) 8.2 % 0-10 [facility] Blood platelet mean volumeOr dered By: Ivon Oliver on 03-18-2023 Platelet mean volume (Bld) [Entitic vol] 11.0 fL 6.2-12.0 [facility] Determination of erythrocyte mean corpuscular volume (MCV)Ordered By: Ivon Oliver on 03-18-2023 MCV (RBC) [Entitic vol] 92.1 fL 81-99 [facility] Hematocrit Auto (Bld) [Volum e fraction]Ordered By: Ivon Oliver on 03-18-2023 Hematocrit (Bld) [Volume fraction] 29.0 % 37-47 [facility] Laboratory - Chemistry and C hemistry - challengeOrdered By: Ivon Oliver on 03-18-2023 ALP [Catalytic activity/Vol] 158 U/L 45-117 [facility] ALT [Catalytic activity/Vol] 101 U/L 13-56 [facility] CO2 [Moles/Vol] 21.0 mmol/L 21.0-32.0 [facility] Globulin (S) [Mass/Vol] 3.4 g/dL 2.2-4.2 [facility] Urea nitrogen/Creatinine [Mass ratio] 8.0 mg/mg 10-20 [facility] Laboratory - Hematology and Cell countsOrdered By: Ivon Oliver on 03-18-2023 Erythrocyte distribution width (RBC) [Entitic vol] 48.2 fL 35.1-43.9 [facility] Erythrocyte distribution width (RBC) [Ratio] 14.3 % 11.6-14.6 [facility] Immature granulocytes/100 WBC (Bld) 0.400 % 0.0-0.9 [facility] Comment on above: IG% - Immature Granu locytes (promyelocytes, myelocytes and metamyelocytes) > 1% indicates that a LEFT SHIFT is Present. MCH (RBC) [Entitic mass] 28.9 pg 27.0-32.0 [facility] Nucleated RBC/100 WBC (Bld) [Ratio] 0 % 0-5 [facility] MCHC Auto (RBC) [Mass/Vol]Or dered By: Ivon Oliver on 03-18-2023 MCHC (RBC) [Mass/Vol] 31.4 g/dL 32-36 [facility] No Panel InformationOrdered By: Ivon Oliver on 03-18-2023 Estimated Creatinine Clearance Calc 44.25 ml/min [facility] Estimated GFR (MDRD) Amer 82 mL/min >60 [facility] Comment on above: GFR Calc Estimated GFR (MDRD) Non-Af Amer 68 mL/min >60 [facility] Comment on above: Non- GFR Calc Platelets bldOrdered By: Neetu Oliver on 03-18-2023 Platelets (Bld) [#/Vol] 281 10*3/uL 150-450 [facility] Serum or plasma albumin franck urement (mass/volume)Ordered By: Ivon Oliver on 03-18-2023 Albumin [Mass/Vol] 2.7 g/dL 3.2-5.0 [facility] Serum or plasma albumin/glob ulin mass ratioOrdered By: Ivon Oliver on 03-18-2023 Albumin/Globulin [Mass ratio] 0.8 {ratio} 0.9-2.4 [facility] Serum or plasma calcium franck urement (mass/volume)Ordered By: Ivon Oliver on 03-18-2023 Calcium [Mass/Vol] 8.4 mg/dL 8.5-10.1 [facility] Serum or plasma creatinine m easurement (mass/volume)Ordered By: Ivon Oliver on 03-18-2023 Creatinine [Mass/Vol] 0.88 mg/dL 0.55-1.02 [facility] Comment on above: The validity of the calculated GFR & GFRAA in patients over 70 years has not been determined. Clinical correlation is essential. Serum or plasma urea nitroge n measurement (mass/volume)Ordered By: Ivon Oliver on 03-18-2023 Urea nitrogen [Mass/Vol] 7 mg/dL 7-18 [facility] Thin prep Papanicolaou smear with manual screeningOrdered By: Ivon Oliver on 03-18-2023 Thin prep Papanicolaou smear with manual screening 81 U/L 15-37 [facility] Thin prep Papanicolaou smear with manual screening 6 5-15 [facility] Absolute lymphocyte countOrd ered By: Jose Stanton on 03-16-2023 Lymphocytes Auto (Unsp spec) [#/Vol] 3.41 10*3/uL 0.83-4.51 [facility] Basophil percentageOrdered B y: Jose Stanton on 03-16-2023 Basophil percentage 0-5 SEEN /hpf 0-5 [facility] Basophils/100 WBC (Bld) 1.1 % 0-1 [facility] Bilirubin [Mass/Vol] 0.60 mg/dL 0.20-1.00 [facility] Comment on above: For patients on eltr ombopag therapy, use of Dimension [place] TBIL is not recommended. Chloride [Moles/Vol] 109 mmol/L 98-107 [facility] Eosinophils/100 WBC (Bld) 1.1 % 0-5 [facility] Glucose [Mass/Vol] 100 mg/dL 74-106 [facility] Comment on above: Fasting Glucose resu lt from 100 to 125 mg/dL suggests IMPAIRED HOMEOSTASIS per A.D.A. criteria. Neutrophils (Bld) [#/Vol] 4.1 10*3/uL 2.0-7.7 [facility] Neutrophils/100 WBC (Bld) 48.5 % 47-70 [facility] Potassium [Moles/Vol] 4.1 mmol/L 3.5-5.1 [facility] Protein [Mass/Vol] 7.5 g/dL 6.4-8.2 [facility] Sodium [Moles/Vol] 139 mmol/L 136-145 [facility] WBC (Bld) [#/Vol] 8.4 10*3/uL 4.4-11.0 [facility] Bilirubin Test strip Ql (U)O rdered By: Jose Stanton on 03-16-2023 Bilirubin Ql (U) Negative Negative [facility] Blood erythrocytes count (nu mber/volume)Ordered By: Jose Stanton on 03-16-2023 RBC (Bld) [#/Vol] 3.96 10*6/uL 4.2-5.4 [facility] Blood hemoglobin measurement (mass/volume)Ordered By: Jose Stanton on 03-16-2023 Hemoglobin (Bld) [Mass/Vol] 11.4 g/dL 12.0-15.0 [facility] Blood lymphocytes/100 leukoc ytesOrdered By: Jose Stanton on 03-16-2023 Lymphocytes/100 WBC (Bld) 40.6 % 19-41 [facility] Blood monocytes/100 leukocyt esOrdered By: oJse Stanton on 03-16-2023 Monocytes/100 WBC (Bld) 8.3 % 0-10 [facility] Blood platelet mean volumeOr dered By: Jose Stanton on 03-16-2023 Platelet mean volume (Bld) [Entitic vol] 10.0 fL 6.2-12.0 [facility] Determination of erythrocyte mean corpuscular volume (MCV)Ordered By: Jose Stanton on 03-16-2023 MCV (RBC) [Entitic vol] 89.4 fL 81-99 [facility] Hematocrit Auto (Bld) [Volum e fraction]Ordered By: Jose Stanton on 03-16-2023 Hematocrit (Bld) [Volume fraction] 35.4 % 37-47 [facility] Ketones Test strip Ql (U)Ord ered By: Jose Stanton on 03-16-2023 Ketones Ql (U) Negative Negative [facility] Laboratory - Chemistry and C hemistry - challengeOrdered By: Jose Stanton on 03-16-2023 ALP [Catalytic activity/Vol] 105 U/L 45-117 [facility] ALT [Catalytic activity/Vol] 18 U/L 13-56 [facility] CO2 [Moles/Vol] 23.0 mmol/L 21.0-32.0 [facility] Globulin (S) [Mass/Vol] 3.9 g/dL 2.2-4.2 [facility] Urea nitrogen/Creatinine [Mass ratio] 12.1 mg/mg 10-20 [facility] Laboratory - Hematology and Cell countsOrdered By: Jose Stanton on 03-16-2023 Erythrocyte distribution width (RBC) [Entitic vol] 49.0 fL 35.1-43.9 [facility] Erythrocyte distribution width (RBC) [Ratio] 14.7 % 11.6-14.6 [facility] Immature granulocytes/100 WBC (Bld) 0.400 % 0.0-0.9 [facility] Comment on above: IG% - Immature Granu locytes (promyelocytes, myelocytes and metamyelocytes) > 1% indicates that a LEFT SHIFT is Present. MCH (RBC) [Entitic mass] 28.8 pg 27.0-32.0 [facility] Nucleated RBC/100 WBC (Bld) [Ratio] 0 % 0-5 [facility] MCHC Auto (RBC) [Mass/Vol]Or dered By: Jose Stanton on 03-16-2023 MCHC (RBC) [Mass/Vol] 32.2 g/dL 32-36 [facility] Mucus LM Ql (Urine sed)Order ed By: Jose Stanton on 03-16-2023 Mucus Ql (Urine sed) 0 SEEN /hpf [facility] Nitrite Test strip Ql (U)Ord ered By: Jose Stanton on 03-16-2023 Nitrite Ql (U) Negative Negative [facility] No Panel InformationOrdered By: Jose Stanton on 03-16-2023 Estimated Creatinine Clearance Calc 26.13 ml/min [facility] Estimated GFR (MDRD) Amer 44 mL/min >60 [facility] Comment on above: GFR Calc Estimated GFR (MDRD) Non-Af Amer 37 mL/min >60 [facility] Comment on above: Non- GFR Calc Platelets bldOrdered By: Sania Stanton on 03-16-2023 Platelets (Bld) [#/Vol] 361 10*3/uL 150-450 [facility] Protein Test strip Ql (U)Ord ered By: Jose Stanton on 03-16-2023 Protein Ql (U) Negative Negative [facility] Serum or plasma albumin franck urement (mass/volume)Ordered By: Jose Stanton on 03-16-2023 Albumin [Mass/Vol] 3.6 g/dL 3.2-5.0 [facility] Serum or plasma albumin/glob ulin mass ratioOrdered By: Jose Stanton on 03-16-2023 Albumin/Globulin [Mass ratio] 0.9 {ratio} 0.9-2.4 [facility] Serum or plasma calcium franck urement (mass/volume)Ordered By: Jose Stanton on 03-16-2023 Calcium [Mass/Vol] 9.0 mg/dL 8.5-10.1 [facility] Serum or plasma creatinine m easurement (mass/volume)Ordered By: Jose Stanton on 03-16-2023 Creatinine [Mass/Vol] 1.49 mg/dL 0.55-1.02 [facility] Comment on above: The validity of the calculated GFR & GFRAA in patients over 70 years has not been determined. Clinical correlation is essential. Serum or plasma urea nitroge n measurement (mass/volume)Ordered By: Jose Stanton on 03-16-2023 Urea nitrogen [Mass/Vol] 18 mg/dL 7-18 [facility] Squamous epithelial cells de tection in urine sediment by light microscopyOrdered By: Jose Stanton on 03-16-2023 Epithelial cells.squamous LM Ql (Urine sed) 0 SEEN /hpf 5-10 [facility] Thin prep Papanicolaou smear with manual screeningOrdered By: Jose Stanton on 03-16-2023 Thin prep Papanicolaou smear with manual screening 18 U/L 15-37 [facility] Thin prep Papanicolaou smear with manual screening 7 5-15 [facility] Urine blood detectionOrdered By: Jose Stanton on 03-16-2023 RBC Ql (U) Negative Negative [facility] RBC Ql (U) 0 SEEN /hpf 0-5 [facility] Urine clarityOrdered By: Sanai Stanton on 03-16-2023 Clarity (U) Clear Clear [facility] Urine color determinationOrd ered By: Jose Stanton on 03-16-2023 Color (U) Yellow Yellow [facility] Urine glucose detectionOrder ed By: Jose Stanton on 03-16-2023 Glucose Ql (U) Normal mg/dl Normal [facility] Urine leukocyte esterase det ection by dipstickOrdered By: Jose Stanton on 03-16-2023 Leukocyte esterase Test strip Ql (U) 25 /ul Negative [facility] Urine pHOrdered By: Jose Stanton on 03-16-2023 pH (U) 6.0 [pH] 5.0 - 8.0 [facility] Urine sediment bacteria coun t by microscopy (number/high power field)Ordered By: Jose Stanton on 03-16-2023 Bacteria LM.HPF (Urine sed) [#/Area] 0 /[HPF] None Seen [facility] Urine specific gravity measu rementOrdered By: Jose Stanton on 03-16-2023 Specific gravity (U) [Rel density] 1.010 1.002-1.030 [facility] Urobilinogen Auto test strip Ql (U)Ordered By: Jose Stanton on 03-16-2023 Urobilinogen Ql (U) Normal mg/dl Normal [facility] Absolute lymphocyte countOrd ered By: Dr. Anderson on 12-11-2022 Lymphocytes Auto (Unsp spec) [#/Vol] 2.86 10*3/uL 0.83-4.51 [facility] Basophil percentageOrdered B y: Dr. Anderson on 12-11-2022 Basophils/100 WBC (Bld) 0.6 % 0-1 [facility] Chloride [Moles/Vol] 112 mmol/L 98-107 [facility] Eosinophils/100 WBC (Bld) 2.1 % 0-5 [facility] Glucose [Mass/Vol] 103 mg/dL 74-106 [facility] Comment on above: Fasting Glucose resu lt from 100 to 125 mg/dL suggests IMPAIRED HOMEOSTASIS per A.D.A. criteria. Neutrophils (Bld) [#/Vol] 5.3 10*3/uL 2.0-7.7 [facility] Neutrophils/100 WBC (Bld) 57.1 % 47-70 [facility] Potassium [Moles/Vol] 4.1 mmol/L 3.5-5.1 [facility] Sodium [Moles/Vol] 139 mmol/L 136-145 [facility] WBC (Bld) [#/Vol] 9.4 10*3/uL 4.4-11.0 [facility] Blood erythrocytes count (nu mber/volume)Ordered By: Dr. Anderson on 12-11-2022 RBC (Bld) [#/Vol] 3.66 10*6/uL 4.2-5.4 [facility] Blood hemoglobin measurement (mass/volume)Ordered By: Dr. Anderson on 12-11-2022 Hemoglobin (Bld) [Mass/Vol] 10.9 g/dL 12.0-15.0 [facility] Blood lymphocytes/100 leukoc ytesOrdered By: Dr. Anderson on 12-11-2022 Lymphocytes/100 WBC (Bld) 30.6 % 19-41 [facility] Blood monocytes/100 leukocyt esOrdered By: Dr. Anderson on 12-11-2022 Monocytes/100 WBC (Bld) 9.3 % 0-10 [facility] Blood platelet mean volumeOr dered By: Dr. Anderson on 12-11-2022 Platelet mean volume (Bld) [Entitic vol] 9.4 fL 6.2-12.0 [facility] Determination of erythrocyte mean corpuscular volume (MCV)Ordered By: Dr. Anderson on 12-11-2022 MCV (RBC) [Entitic vol] 88.8 fL 81-99 [facility] Hematocrit Auto (Bld) [Volum e fraction]Ordered By: Dr. Anderson on 12-11-2022 Hematocrit (Bld) [Volume fraction] 32.5 % 37-47 [facility] Laboratory - Chemistry and C hemistry - challengeOrdered By: Dr. Anderson on 12-11-2022 CO2 [Moles/Vol] 22.0 mmol/L 21.0-32.0 [facility] Urea nitrogen/Creatinine [Mass ratio] 13.6 mg/mg 10-20 [facility] Laboratory - Hematology and Cell countsOrdered By: Dr. Anderson on 12-11-2022 Erythrocyte distribution width (RBC) [Entitic vol] 45.2 fL 35.1-43.9 [facility] Erythrocyte distribution width (RBC) [Ratio] 13.9 % 11.6-14.6 [facility] Immature granulocytes/100 WBC (Bld) 0.300 % 0.0-0.9 [facility] Comment on above: IG% - Immature Granu locytes (promyelocytes, myelocytes and metamyelocytes) > 1% indicates that a LEFT SHIFT is Present. MCH (RBC) [Entitic mass] 29.8 pg 27.0-32.0 [facility] Nucleated RBC/100 WBC (Bld) [Ratio] 0 % 0-5 [facility] MCHC Auto (RBC) [Mass/Vol]Or dered By: Dr. Anderson on 12-11-2022 MCHC (RBC) [Mass/Vol] 33.5 g/dL 32-36 [facility] No Panel InformationOrdered By: Dr. Anderson on 12-11-2022 Estimated Creatinine Clearance Calc 30.92 ml/min [facility] Estimated GFR (MDRD) Amer 51 mL/min >60 [facility] Comment on above: GFR Calc Estimated GFR (MDRD) Non-Af Amer 42 mL/min >60 [facility] Comment on above: Non- GFR Calc Platelets bldOrdered By: Dr. Anderson on 12-11-2022 Platelets (Bld) [#/Vol] 418 10*3/uL 150-450 [facility] Serum or plasma calcium franck urement (mass/volume)Ordered By: Dr. Anderson on 12-11-2022 Calcium [Mass/Vol] 8.7 mg/dL 8.5-10.1 [facility] Serum or plasma creatinine m easurement (mass/volume)Ordered By: Dr. Anderson on 12-11-2022 Creatinine [Mass/Vol] 1.32 mg/dL 0.55-1.02 [facility] Comment on above: The validity of the calculated GFR & GFRAA in patients over 70 years has not been determined. Clinical correlation is essential. Serum or plasma urea nitroge n measurement (mass/volume)Ordered By: Dr. Anderson on 12-11-2022 Urea nitrogen [Mass/Vol] 18 mg/dL 7-18 [facility] Thin prep Papanicolaou smear with manual screeningOrdered By: Dr. Anderson on 12-11-2022 Thin prep Papanicolaou smear with manual screening 5 5-15 [facility] [id number] 11-24-2022 HbA1c (Bld) [Mass fraction] 5.5 % Normal 4.3-6.1 [facility] Comment on above: Result Comment: Estimated Average Glucose: HgbA1C % mg/dL 4.0 68 5.0 97 6.0 125 7.0 154 8.0 183 9.0 212 10.0 240 Source: [place] [employer] web site, 2017. Performed By: #### L 200.0010 #### [facility] [address] [place] [address] BMPon 11-23-2022 Anion gap [Moles/Vol] 17.5 mmol/L Normal 15-22 [facility] Comment on above: Performed By: #### L 200.0010 #### [facility] [address] [place] [address] Calcium [Mass/Vol] 9.7 mg/dL Normal 8.8-10.2 [facility] Comment on above: Performed By: #### L 200.0010 #### [facility] - [facility] [address] [place] [address] Chloride [Moles/Vol] 104 mmol/L Normal 98-107 [facility] Comment on above: Performed By: #### L 200.0010 #### [facility] - [facility]ATORY [address] [place] [address] CO2 [Moles/Vol] 21 mmol/L Low 22-29 [facility] Comment on above: Performed By: #### L 200.0010 #### [facility] - [facility] [address] [place] [address] Creatinine [Mass/Vol] 1.11 mg/dL High 0.50-0.90 [facility] Comment on above: Performed By: #### L 200.0010 #### [facility] - [facility]ORY [address] [place] [address]7064 eGFR if AFR ELOISA 59 [facility] Comment on above: Result Comment: eGFR >= 60 Indicates normal kidney function. * eGFR IS AN ESTIMATE * (AFR ELOISA = ) (non-AFR AM = NON-) MDRD calculation used in the eGFR should not be used to dose medications. For further limitations of the eGFR please refer to the Physician Website or the National Kidney Disease Education Program website (www.nkdep.nih.gov). Performed By: #### L 200.0010 #### [facility] - [facility] [address] [place] [address] 38584 eGFR nonAFR Eloisa 48 [facility] Comment on above: Performed By: #### L 200.0010 #### [facility] - [facility] [address] [place] [address] Glucose [Mass/Vol] 106 mg/dL Normal 82-115 [facility] Comment on above: Performed By: #### L 200.0010 #### [facility] [address] [place] [address] Potassium [Moles/Vol] 4.5 mmol/L Normal 3.5-5.0 [facility] Comment on above: Performed By: #### L 200.0010 #### [facility] - [facility] [address] [place] [address]15[address] Sodium [Moles/Vol] 138 mmol/L Normal 135-145 [facility] Comment on above: Performed By: #### L 200.0010 #### [facility] - [facility] [address] [place] [address] Urea nitrogen [Mass/Vol] 20 mg/dL Normal 8-23 [facility] Comment on above: Performed By: #### L 200.0010 #### [facility] - [facility] [address] [place] [address]8531 Basic metabolic 2000 panelon 11-23-2022 Anion gap [Moles/Vol] 17.5 mmol/L 15 - 2 2 mmol/L [facility] Calcium [Mass/Vol] 9.7 mg/dL 8.8 - 10. 2 mg/dL [facility] Chloride [Moles/Vol] 104 mmol/L 98 - 10 7 mmol/L [facility] CO2 [Moles/Vol] 21 mmol/L Low 22 - 29 mmol/L [facility] Creatinine [Mass/Vol] 1.11 mg/dL High 0.50 - 0.90 mg/dL [facility] eGFR-All Other Races 48 [facility] GFR/1.73 sq M.predicted among blacks MDRD (S/P/Bld) [Vol rate/Area] 59 mL/min/{1.73_m2} [facility] Glucose [Mass/Vol] 106 mg/dL 82 - 115 mg/dL [facility] Potassium [Moles/Vol] 4.5 mmol/L 3.5 - 5.0 mmol/L [facility] Sodium [Moles/Vol] 138 mmol/L 135 - 145 mmol/L [facility] Urea nitrogen [Mass/Vol] 20 mg/dL 8 - 23 mg/dL [facility] CBCon 11-23-2022 BASO# 0.10 x10(3) Normal 0.00-0.10 [facility] Comment on above: Performed By: #### L 200.0010 #### [facility] - [facility] [address] [place] [address] Basophils/100 WBC (Bld) 1.1 % High 0.0-1.0 [facility] Comment on above: Performed By: #### L 200.0010 #### [facility] - [facility] [address] [place] [address] 5[address] EOS# 0.30 x10(3) Normal 0.00-0.54 [facility] Comment on above: Performed By: #### L 200.0010 #### [facility] - [facility] [address] [place] [address] 93193 Eosinophils/100 WBC (Bld) 3.2 % Normal 0.5-4.9 [facility] Comment on above: Performed By: #### L 200.0010 #### [facility] - [facility] [address] [place] [address] 98400 Erythrocyte distribution width (RBC) [Ratio] 14.7 % Normal 12.5-15.7 [facility] Comment on above: Performed By: #### L 200.0010 #### [facility] - [facility] [address] [place] [address] Hematocrit (Bld) [Volume fraction] 35.1 % Low 36.0-48.0 [facility] Comment on above: Performed By: #### L 200.0010 #### [facility] - [facility] [address] [place] [address] Hemoglobin (Bld) [Mass/Vol] 11.6 g/dL Low 12.0-16.0 [facility] Comment on above: Performed By: #### L 200.0010 #### [facility] - [facility] [address] [place] [address] 80564 LYMPH# 2.00 x10(3) Normal 1.00-3.50 [facility] Comment on above: Performed By: #### L 200.0010 #### [facility] - [facility] [address] [place] [address] 12373 Lymphocytes/100 WBC (Bld) 25.8 % Normal 16.0-48.0 [facility] Comment on above: Performed By: #### L 200.0010 #### [facility] - [facility] [address] [place] [address] 37317 MCH (RBC) [Entitic mass] 29.6 pg Normal 28.5-32.9 [facility] Comment on above: Performed By: #### L 200.0010 #### [facility] - [facility] [address] [place] [address] 09317 MCHC (RBC) [Mass/Vol] 33.1 g/dL Normal 33.0-36.0 [facility] Comment on above: Performed By: #### L 200.0010 #### ML [facility] [address] [place] [address]91 MCV (RBC) [Entitic vol] 89.6 fL Normal 80.0-99.0 [facility] Comment on above: Performed By: #### L 200.0010 #### [facility] [address] [place] [address] 255[address] MONO# 0.60 x10(3) Normal 0.30-0.80 [facility] Comment on above: Performed By: #### L 200.0010 #### ML [facility] [address] [place] [address] 75368 Monocytes/100 WBC (Bld) 7.5 % Normal 4.3-11.2 [facility] Comment on above: Performed By: #### L 200.0010 #### [facility] [address] [place] [address] 16177 NEUT# 4.90 x10(3) Normal 1.40-6.50 [facility] Comment on above: Performed By: #### L 200.0010 #### [facility] [address] [place] [address]60 Neutrophils/100 WBC (Bld) 62.4 % Normal 45.0-73.0 [facility] Comment on above: Performed By: #### L 200.0010 #### ML [facility] [address] [place] [address] 88397 Platelet mean volume (Bld) [Entitic vol] 8.1 fL Normal 7.5-9.5 [facility] Comment on above: Performed By: #### L 200.0010 #### [facility] - [facility] [address] [place] [address] 20241 PLT 391 X10(3) Normal 150-450 [facility] Comment on above: Performed By: #### L 200.0010 #### [facility] - [facility] [address] [place] [address] 04629 RBC 3.92 x10(6) Normal 3.30-5.00 [facility] Comment on above: Performed By: #### L 200.0010 #### [facility] - [facility] [address] [place] [address] 37363 WBC 7.8 x10(3) Normal 4.5-10.0 [facility] Comment on above: Performed By: #### L 200.0010 #### [facility] - [facility] [address] [place] [address] 04426 CBC W Auto Differential pane l (Bld)on 11-23-2022 BASO ABS 0.10 x10(3) 0.00 - 0.10 x10(3) [facility] Basophils/100 WBC (Bld) 1.1 % High 0.0 - 1.0 % [facility] EOS ABS 0.30 x10(3) 0.00 - 0.54 x10(3) [facility] Eosinophils/100 WBC (Bld) 3.2 % 0.5 - 4.9 % [facility] Erythrocyte distribution width (RBC) [Ratio] 14.7 % 12.5 - 15.7 % [facility] Hematocrit (Bld) [Volume fraction] 35.1 % Low 36.0 - 48.0 % [facility] Hemoglobin (Bld) [Mass/Vol] 11.6 g/dL Low 12.0 - 16.0 g/dL [facility] LYMPH ABS 2.00 x10(3) 1.00 - 3.50 x10(3) [facility] Lymphocytes/100 WBC (Bld) 25.8 % 16.0 - 48.0 % [facility] MCH (RBC) [Entitic mass] 29.6 pg 28.5 - 32.9 pg [facility] MCHC (RBC) [Mass/Vol] 33.1 g/dL 33.0 - 36.0 g/dL [facility] MCV (RBC) [Entitic vol] 89.6 fL 80.0 - 99.0 fl [facility] MONO ABS 0.60 x10(3) 0.30 - 0.80 x10(3) [facility] Monocytes/100 WBC (Bld) 7.5 % 4.3 - 11.2 % [facility] Neutrophil Ab 4.90 x10(3) 1.40 - 6.50 x10(3) [facility] Neutrophils/100 WBC (Bld) 62.4 % 45.0 - 73.0 % [facility] Platelet mean volume (Bld) [Entitic vol] 8.1 fL 7.5 - 9.5 fl [facility] Platelets (Bld) [#/Vol] 391 X10(3) 150 - 450 X10(3) [facility] RBC (Bld) [#/Vol] 3.92 x10(6) 3.30 - 5.0 0 x10(6) [facility] WBC (Bld) [#/Vol] 7.8 x10(3) 4.5 - 10.0 x10(3) [facility] HEPATIC PANELon 11-23-2022 A:G RATIO 1.35 Normal 1.1-2.5 [facility] Comment on above: Performed By: #### L 200.0010 #### ML [facility] [address] [place] [address] 83483 Albumin [Mass/Vol] 4.2 g/dL Normal 3.5-5.2 [facility] Comment on above: Performed By: #### L 200.0010 #### ML [facility] [address] [place] [address] 26464 ALK. PHOS 105 U/L Normal 35-105 [facility] Comment on above: Performed By: #### L 200.0010 #### [facility] [address] [place] [address] 19802 ALT [Catalytic activity/Vol] 14 U/L Normal - [facility] Comment on above: Performed By: #### L 200.0010 #### [facility] [address] [place] [address] 09000 AST [Catalytic activity/Vol] 21 U/L Normal - [facility] Comment on above: Performed By: #### L 200.0010 #### [facility] - [facility] [address] [place] [address] 21341 Bilirubin [Mass/Vol] 0.3 mg/dL Normal 0.2-1.2 [facility] Comment on above: Performed By: #### L 200.0010 #### [facility] - [facility] [address] [place] [address] 29486 DIRECT BILIRUBI <0.2 Normal 0.0-0.3 [facility] Comment on above: Performed By: #### L 200.0010 #### [facility] - [facility] [address] [place] [address] 96330 Globulin (S) [Mass/Vol] 3.1 g/dL Normal 1.5-4.5 [facility] Comment on above: Performed By: #### L 200.0010 #### [facility] - [facility] [address] [place] [address] 37550 Protein [Mass/Vol] 7.3 g/dL Normal 6.4-8.3 [facility] Comment on above: Performed By: #### L 200.0010 #### [facility] - [facility] [address] [place] [address] 42976 HbA1c (Bld)on 11-23-2022 HbA1c (Bld) [Mass fraction] 5.5 % 4.3 - 6.1 % [facility] Hepatic function 2000 [facility] 11-23-2022 Albumin [Mass/Vol] 4.2 g/dL 3.5 - 5.2 g/dL [facility] Albumin/Globulin [Mass ratio] 1.35 {ratio} 1.1 - 2.5 [facility] ALP [Catalytic activity/Vol] 105 U/L 35 - 105 U/L [facility] ALT [Catalytic activity/Vol] 14 U/L 5 - 33 U/L [facility] AST [Catalytic activity/Vol] 21 U/L 5 - 32 U/L [facility] Bilirubin [Mass/Vol] 0.3 mg/dL 0.2 - 1 .2 mg/dL [facility] Direct Bilirubin <0.2 0.0 - 0.3 mg/[facility] Globulin (S) [Mass/Vol] 3.1 g/dL 1.5 - 4.5 g/dL [facility] Protein [Mass/Vol] 7.3 g/dL 6.4 - 8.3 g/dL [facility] TSHon 11-23-2022 TSH 2.65 uIU/mL Normal 0.270-4.200 [facility] Comment on above: Performed By: #### L 200.0010 #### [facility] [address] [place] [address] TSH BLDon 11-23-2022 TSH Qn 2.65 uIU/mL 0.270 - 4.200 uIU/mL [facility] EMERGENCY DEPARTMENT REPORTo n 10-16-2022 [place]ER[place] [address] HEALTH INFORMATION MANAGEMENT EMERGENCY DEPARTMENT REPORT Patient: KAITLYN ESCOBARLEO Bangura M.D. [id number] [id number] F Status: DEP ER ED Date of Service: 10/14/22 PHYSICIAN: Dr. Kentrell Dhaliwal. CHIEF COMPLAINT: Chest heaviness, leg pain. HISTORY OF PRESENT ILLNESS: This is a 72-year-old female who comes in with numerous complaints. She seems very anxious and she does have a history of that. The daughter called the squad because she was worried about having a stroke. The mother states her chest feels heavy since 11 o'clock yesterday. She also complains of pain in the left lateral thigh. She has been on Eliquis therapy. She does have a history of DVT, but did not take it yesterday because she was not here. The daughter is worried whether she is having a stroke is because she seems to be having some spasm in the left leg. The patient has not been eating or drinking very well recently. The patient admits to being under a lot of stress because her brother just got diagnosed with a malignancy and they live in the same house. Past history includes coronary artery disease, cholecystectomy, hysterectomy, hypertension, appendectomy, DVT, colon resection. The patient is quite hard to get a history from initially because she was so anxious. She was all over the place and very scattered in her thoughts. The daughter arrived about an hour and half after she had been here and gave us some additional history. PHYSICAL EXAMINATION: GENERAL: An afebrile 72-year-old female. SKIN: Turgor is poor. HEENT: Mucous membranes are dry. Eye exam, no scleral icterus. NECK: Supple. LUNGS: Lung castro are clear. CARDIAC: Sounds are regular without a murmur. No chest wall pain to palpation. ABDOMEN: No abdominal pain to palpation. MUSCULOSKELETAL: She had mild tenderness on palpation of left lateral mid thigh, but there was no swelling, though there was no bony pain in the left leg. She had good neurovascular function in all extremities. There are no sensory motor deficits. Seems to be having a little bit of muscle spasm in the left foot, but again no signs of a cerebrovascular accident. Peripheral sensory motor exam is symmetric and intact. Workup here, EKG shows sinus rhythm. Troponin was not elevated. CO2 was 20. Her creatinine was 1.34. Usually running creatinine is about 0.9. White count 12,000, hemoglobin 11.8. Chest x-ray negative. Family is concerned about a possible DVT, we will have her come back Sunday morning for an ultrasound. I think this is combination of anxiety and some musculoskeletal left thigh pain. Report#: Dict ID [id number] / Int ID [id number] cc: Kentrell Dhaliwal III, MD 10/16/22 1252 LEO EMERSON M.D. cc: LEO EMERSON M.D.; KENTRELL DHALIWAL II, M.D.; No Physician << Signature on File>> Reported By: LEO EMERSON M.D. Signed By: LEO EMERSON M.D. Tests performed at: [address] [address] Normal [facility] LEG VEIN DVT UNL VAS LABo n 10-16-2022 [facility] VENOUS DUPLEX OF SINGLE LEGo n 10-16-2022 V[place] [address] Vascular Lab - [facility] Accredited in: Extracranial Cerebrovascular, Visceral Vascular, Vascular Screening & Peripheral Arterial & Venous Testing [employer] REPORT Patient: KAITLYN ESCOBAR I Ord Dr: LEO EMERSON M.D. [id number] [age] F Status: REG CLI CARD Reason for Visit: PAIN LLE Service Date: 10/16/22 Access#: [id number] Procedure: VENOUS DUPLEX OF SINGLE LEG Conclusions: Left 1. Negative for deep venous thrombosis 2. Negative for superficial venous thrombosis Abbreviated Final Report. Full Report available via Link to [employer] PCI - Fast Orientation Image Viewer . Electronically Signed by: LEO JONES M.D. 10/17/22 0820 LEO JONES M.D. cc: LEO EMERSON M.D. << Signature on File>> Reported By: LEO JONES M.D. Signed By: LEO JONES M.D. Tests performed at: [address] [address] Normal [facility] BMPon 10-14-2022 Anion gap [Moles/Vol] 20.9 mmol/L Normal 15-22 [facility] Comment on above: Performed By: #### L 200.3190, L200.3001 #### [facility] - [facility] [address] [place] [address]68 Calcium [Mass/Vol] 9.8 mg/dL Normal 8.8-10.2 [facility] Comment on above: Performed By: #### L 200.3190, L200.3001 #### [facility] - [facility] [address] [place] [address] 93568 Chloride [Moles/Vol] 100 mmol/L Normal 98-107 [facility] Comment on above: Performed By: #### L 200.3190, L200.3001 #### [facility] - [facility] [address] [place] [address] 29570 CO2 [Moles/Vol] 20 mmol/L Low 22-29 [facility] Comment on above: Performed By: #### L 200.3190, L200.3001 #### [facility] - [facility] [address] [place] [address] Creatinine [Mass/Vol] 1.34 mg/dL High 0.50-0.90 [facility] Comment on above: Performed By: #### L 200.3190, L200.3001 #### [facility] [address] [place] [address] 93110 eGFR if AFR ELOISA 47 [facility] Comment on above: Result Comment: eGFR >= 60 Indicates normal kidney function. * eGFR IS AN ESTIMATE * (AFR ELOISA = ) (non-AFR AM = NON-) MDRD calculation used in the eGFR should not be used to dose medications. For further limitations of the eGFR please refer to the Physician Website or the National Kidney Disease Education Program website (www.nkdep.nih.gov). Performed By: #### L 200.3190, L200.3001 #### [facility] [address] [place] [address] 41216 eGFR nonAFR Eloisa 39 [facility] Comment on above: Performed By: #### L 200.3190, L200.3001 #### [facility] [address] [place] [address] 28208 Glucose [Mass/Vol] 91 mg/dL Normal 82-115 [facility] Comment on above: Performed By: #### L 200.3190, L200.3001 #### [facility] [address] [place] [address] Potassium [Moles/Vol] 3.9 mmol/L Normal 3.5-5.0 [facility] Comment on above: Performed By: #### L 200.3190, L200.3001 #### [facility] [address] [place] [address] Sodium [Moles/Vol] 137 mmol/L Normal 135-145 [facility] Comment on above: Performed By: #### L 200.3190, L200.3001 #### [facility] - [facility] [address] [place] [address] Urea nitrogen [Mass/Vol] 14 mg/dL Normal 8-23 [facility] Comment on above: Performed By: #### L 200.3190, L200.3001 #### [facility] - [facility] [address] [place] [address] Basic metabolic 2000 panelon 10-14-2022 Anion gap [Moles/Vol] 20.9 mmol/L 15 - 2 2 mmol/L [facility] Calcium [Mass/Vol] 9.8 mg/dL 8.8 - 10. 2 mg/dL [facility] Chloride [Moles/Vol] 100 mmol/L 98 - 10 7 mmol/L [facility] CO2 [Moles/Vol] 20 mmol/L Low 22 - 29 mmol/L [facility] Creatinine [Mass/Vol] 1.34 mg/dL High 0.50 - 0.90 mg/dL [facility] eGFR-All Other Races 39 [facility] GFR/1.73 sq M.predicted among blacks MDRD (S/P/Bld) [Vol rate/Area] 47 mL/min/{1.73_m2} [facility] Glucose [Mass/Vol] 91 mg/dL 82 - 115 mg/dL [facility] Potassium [Moles/Vol] 3.9 mmol/L 3.5 - 5.0 mmol/L [facility] Sodium [Moles/Vol] 137 mmol/L 135 - 145 mmol/L [facility] Urea nitrogen [Mass/Vol] 14 mg/dL 8 - 23 mg/dL [facility] CBCon 10-14-2022 BASO# 0.10 x10(3) Normal 0.00-0.10 [facility] Comment on above: Performed By: #### L 200.3190, L200.3001 #### [facility] - LABORATORY [address] [place] [address] Basophils/100 WBC (Bld) 0.7 % Normal 0.0-1.0 [facility] Comment on above: Performed By: #### L 200.3190, L200.3001 #### ML - LABORATORY [address] [place] [address]124 EOS# 0.10 x10(3) Normal 0.00-0.54 [facility] Comment on above: Performed By: #### L 200.3190, L200.3001 #### [facility] - LABORATORY [address] [place] [address] 23573 Eosinophils/100 WBC (Bld) 0.6 % Normal 0.5-4.9 [facility] Comment on above: Performed By: #### L 200.3190, L200.3001 #### [facility] - LABORATORY [address] [place] [address] 87131 Erythrocyte distribution width (RBC) [Ratio] 15.4 % Normal 12.5-15.7 [facility] Comment on above: Performed By: #### L 200.3190, L200.3001 #### [facility] [address] [place] [address] 23727 Hematocrit (Bld) [Volume fraction] 35.6 % Low 36.0-48.0 [facility] Comment on above: Performed By: #### L 200.3190, L200.3001 #### [facility] [address] [place] [address] 82669 Hemoglobin (Bld) [Mass/Vol] 11.8 g/dL Low 12.0-16.0 [facility] Comment on above: Performed By: #### L 200.3190, L200.3001 #### [facility] [address] [place] [address] 09644 LYMPH# 3.50 x10(3) Normal 1.00-3.50 [facility] Comment on above: Performed By: #### L 200.3190, L200.3001 #### [facility] [address] [place] [address] 11289 Lymphocytes/100 WBC (Bld) 29.0 % Normal 16.0-48.0 [facility] Comment on above: Performed By: #### L 200.3190, L200.3001 #### [facility] [address] [place] [address] 86876 MCH (RBC) [Entitic mass] 29.4 pg Normal 28.5-32.9 [facility] Comment on above: Performed By: #### L 200.3190, L200.3001 #### [facility] - LABORATORY [address] [place] [address] 14535 MCHC (RBC) [Mass/Vol] 33.2 g/dL Normal 33.0-36.0 [facility] Comment on above: Performed By: #### L 200.3190, L200.3001 #### [facility] - LABORATORY [address] [place] [address] 35633 MCV (RBC) [Entitic vol] 88.4 fL Normal 80.0-99.0 [facility] Comment on above: Performed By: #### L 200.3190, L200.3001 #### [facility] - LABORATORY [address] [place] [address] 88606 MONO# 0.90 x10(3) High 0.30-0.80 [facility] Comment on above: Performed By: #### L 200.3190, L200.3001 #### [facility] - LABORATORY [address] [place] [address] 67314 Monocytes/100 WBC (Bld) 7.3 % Normal 4.3-11.2 [facility] Comment on above: Performed By: #### L 200.3190, L200.3001 #### [facility] [address] [place] [address] 07177 NEUT# 7.50 x10(3) High 1.40-6.50 [facility] Comment on above: Performed By: #### L 200.3190, L200.3001 #### [facility] [address] [place] [address] 90917 Neutrophils/100 WBC (Bld) 62.4 % Normal 45.0-73.0 [facility] Comment on above: Performed By: #### L 200.3190, L200.3001 #### [facility] - LABORATORY [address] [place] [address] 67248 Platelet mean volume (Bld) [Entitic vol] 8.0 fL Normal 7.5-9.5 [facility] Comment on above: Performed By: #### L 200.3190, L200.3001 #### [facility] - LABORATORY [address] [place] [address] 79772 PLT 437 X10(3) Normal 150-450 [facility] Comment on above: Performed By: #### L 200.3190, L200.3001 #### [facility] - LABORATORY [address] [place] [address] 65602 RBC 4.02 x10(6) Normal 3.30-5.00 [facility] Comment on above: Performed By: #### L 200.3190, L200.3001 #### [facility] - LABORATORY [address] [place] [address] 82699 WBC 12.0 x10(3) High 4.5-10.0 [facility] Comment on above: Performed By: #### L 200.3190, L200.3001 #### [facility] - LABORATORY [address] [place] [address] 77167 CBC W Auto Differential pane l (Bld)on 10-14-2022 BASO ABS 0.10 x10(3) 0.00 - 0.10 x10(3) [facility] Basophils/100 WBC (Bld) 0.7 % 0.0 - 1.0 % [facility] EOS ABS 0.10 x10(3) 0.00 - 0.54 x10(3) [facility] Eosinophils/100 WBC (Bld) 0.6 % 0.5 - 4.9 % [facility] Erythrocyte distribution width (RBC) [Ratio] 15.4 % 12.5 - 15.7 % [facility] Hematocrit (Bld) [Volume fraction] 35.6 % Low 36.0 - 48.0 % [facility] Hemoglobin (Bld) [Mass/Vol] 11.8 g/dL Low 12.0 - 16.0 g/dL [facility] LYMPH ABS 3.50 x10(3) 1.00 - 3.50 x10(3) [facility] Lymphocytes/100 WBC (Bld) 29.0 % 16.0 - 48.0 % [facility] MCH (RBC) [Entitic mass] 29.4 pg 28.5 - 32.9 pg [facility] MCHC (RBC) [Mass/Vol] 33.2 g/dL 33.0 - 36.0 g/dL [facility] MCV (RBC) [Entitic vol] 88.4 fL 80.0 - 99.0 fl [facility] MONO ABS 0.90 x10(3) High 0.30 - 0.80 x10(3) [facility] Monocytes/100 WBC (Bld) 7.3 % 4.3 - 11.2 % [facility] Neutrophil Ab 7.50 x10(3) High 1.40 - 6.50 x10(3) [facility] Neutrophils/100 WBC (Bld) 62.4 % 45.0 - 73.0 % [facility] Platelet Count 437 X10(3) 150 - 450 X10(3) [facility] Platelet mean volume (Bld) [Entitic vol] 8.0 fL 7.5 - 9.5 fl [facility] RBC 4.02 x10(6) 3.30 - 5.00 x10(6) [facility] WBC 12.0 x10(3) High 4.5 - 10.0 x10(3) [facility] CHEST-ONE VIEW ONLY - CXR1on 10-14-2022 CHEST-ONE VIEW ONLY - CXR1 [place] [address] Name: KAITLYN ESCOBAR I Phys: LEO EMERSON M.D. : [birth year] Age: 72 Sex: F Acct: [id number] Loc: ED Exam Date: 10/14/22 Status: [facility] ER Radiology No.: Unit Number: [id number] Exam # Type/Exam [id number] RAD / CHEST-ONE VIEW ONLY - CXR1 EXAMINATION: ONE XRAY VIEW OF THE CHEST 10/14/2022 9:00 pm COMPARISON: 11/18/2021 HISTORY: ORDERING SYSTEM PROVIDED HISTORY: TECHNOLOGIST PROVIDED HISTORY: Reason for Exam: Chest pain FINDINGS: No consolidation, congestion, pleural effusion, or pneumothorax is seen. The cardiomediastinal silhouette is unremarkable. IMPRESSION: No acute process. Electronically signed By Cholo Maria DO 10/14/2022 9:07:47 PM EST Workstation ID : [id number] < > Reported By: CHOLO MARIA D.O. Signed In Fluency By: CHOLO MARIA D.O. << Signature on File>> Reported By: CHOLO MARIA D.O. Signed By: CHOLO MARIA D.O. Tests performed at: [address] [address] Normal [facility] CKon 10-14-2022 CK [Catalytic activity/Vol] 78 U/L Normal 26-192 [facility] Comment on above: Result Comment: Rela tive Index is not calculated as it is only applicable to CK values greater than or equal to 192 IU/L. NO RELATIVE INDEX PERFORMED Performed By: #### L 200.3190, L200.3001 #### [facility] - LABORATORY [address] [place] [address] 19408 CK CREATINE KINASEon 023 CK [Catalytic activity/Vol] 78 U/L 26 - 192 IU/L [facility] CK-MBon 10-14-2022 CK.MB [Mass/Vol] 1.6 ng/mL Normal 1.0-5.34 [facility] Comment on above: Performed By: #### L 301.0100, L301.0120, L301.0105 #### [facility] - LABORATORY [address] [place] [address]443 CK-MB (FORNEY)on 10-14-2022 CK.MB [Mass/Vol] 1.6 ng/mL 1.0 - 5.34 ng/mL [facility] EKGon 10-14-2022 Atrial Rate 73 BPM [facility] Calculated P [place] 59 degrees [facility] Calculated R [place] 38 degrees [facility] Calculated T [place] 51 degrees [facility] P-R Interval 138 ms [facility] QRS Duration 76 ms [facility] QT Interval 406 ms [facility] QTC Calculation (Bazett) 447 ms [facility] Ventricular Rate 73 BPM [facility] ELECTROCARDIOGRAMon 10-14-19 [place] [address] HEALTH INFORMATION MANAGEMENT ELECTROCARDIOGRAM REPORT Patient: KAITLYN ESCOBAR I Ordering: LEO EMERSON M.D. [id number] [age] F Exam Date: 10/14/22 Report #: [id number] Status: REG ER ED Test Reason : Blood Pressure : / mmHG Vent. Rate : 073 BPM Atrial Rate : 073 BPM P-R Int : 138 ms QRS Dur : 076 ms QT Int : 406 ms P-R-T Axes : 059 038 051 degrees QTc Int : 447 ms Normal sinus rhythm Normal ECG When compared with ECG of 08-MAY-2022 20:29, No significant change was found Confirmed by LEO EMERSON MD ([id number]) on 10/14/2022 8:04:16 PM Referred By: LEO EMERSON Confirmed By:LEO EMERSON MD Signed in [facility] 10/14/222005 LEO EMERSON M.D. cc: << Signature on File>> Reported By: LEO EMERSON M.D. Signed By: LEO EMERSON M.D. Tests performed at: [address] [address] Normal [facility] TROPONIN Ton 10-14-2022 TROPONIN T <0.010 Normal 0-0.010 [facility] Comment on above: Performed By: #### L 200.3190, L200.3001 #### [facility] - [facility] [address] [place] [address] 20715 Troponin T <0.010 0 - 0.010 ng/mL [facility] XR CHEST [facility] Supine and Uprigh ton 07-24-2022 IMPRESSION: No evidence of free air or obstruction. Bulb Assembler: PSCB Transcribe Date/Time: Jul 24 2022 2:23P Dictated by : DUC HUTCHINSON MD This examination was interpreted and the report reviewed and electronically signed by: DUC HUTCHINSON MD on Jul 24 2022 2:27PM [facility] DIVISION OF RADIOLOGY * * *Final Report* * * DATE OF EXAM: Jul 21 2022 3:37PM STX 5356 - XR ABD 2V SUPINE W UPR/DECUB/CTL / PROCEDURE REASON: multiple diagnoses * * * * Physician Interpretation * * * * EXAM TITLE: XR ABD 2V SUPINE W UPR/DECUB/CTL EXAM DATE/TIME: 07/21/2022 3:37 PM COMPARISON: Abdomen x-ray on 07/15/2022 CLINICAL INDICATION/HISTORY: Abdominal pain. TECHNIQUE: AP views of the abdomen including upright view are presented. FINDINGS: No abnormally dilated bowel loops identified. No evidence of free air. Phlebolith seen in the right pelvis. The bony structures appear intact. The spine shows right-sided curvature. DIVISION OF RADIOLOGY Provider, [facility] - 07/24/2022 * * *Final Report* * * DATE OF EXAM: Jul 21 2022 3:37PM STX 5356 - XR ABD 2V SUPINE W /DEC/CTL / PROCEDURE REASON: multiple diagnoses * * * * Physician Interpretation * * * * EXAM TITLE: XR ABD 2V SUPINE W /DECUB/CTL EXAM DATE/TIME: 07/21/2022 3:37 PM COMPARISON: Abdomen x-ray on 07/15/2022 CLINICAL INDICATION/HISTORY: Abdominal pain. TECHNIQUE: AP views of the abdomen including upright view are presented. FINDINGS: No abnormally dilated bowel loops identified. No evidence of free air. Phlebolith seen in the right pelvis. The bony structures appear intact. The spine shows right-sided curvature. IMPRESSION IMPRESSION: No evidence of free air or obstruction. Bulb Assembler: [facility] Transcribe Date/Time: Jul 24 2022 2:23P Dictated by : DUC HUTCHINSON MD This examination was interpreted and the report reviewed and electronically signed by: DUC HUTCHINSON MD on Jul 24 2022 2:27PM EST [facility] XR Abdomen Supine and Uprigh tOrdered By: [facility] Provider on 07-24-2022 [facility] XR Abdomen Supine and Uprigh ton 07-21-2022 Radiology Study observation (narrative) [facility] ABDOMEN (KUB)1 VIEWon 2021 ABDOMEN (KUB)1 VIEW [facility] [place] [address] Name: KAITLYN ESCOBAR I Phys: KENTRELL PACHECO M.D. : [birth year] Age: 72 Sex: F Acct: [id number] Loc: 2SWEST Exam Date: 07/17/22 Status: ADM IN Radiology No.: Unit Number: [id number] Exam # Type/Exam [id number] RAD / ABDOMEN (KUB)1 VIEW EXAMINATION: ONE SUPINE XRAY VIEW(S) OF THE ABDOMEN 07/17/2022 4:39 am COMPARISON: Abdomen x-ray on 07/15/2022 HISTORY: ORDERING SYSTEM PROVIDED HISTORY: TECHNOLOGIST PROVIDED HISTORY: Reason for Exam: SBO Abdominal pain FINDINGS: There is a single mildly dilated loop of small intestine in the left upper quadrant. Otherwise gas is scattered through the small and large intestine. There is residual contrast in the colon. The colon is not dilated. There is no sign of free intraperitoneal air or other abnormal gas collection. IMPRESSION: Single mildly dilated segment of small intestine in the left upper quadrant may be mild residual ileus or sign of persistent partial obstruction. Electronically signed By Durga Huang MD 07/17/2022 5:03:57 AM EST Workstation ID : [id number] < > Reported By: DURGA HUANG M.D. Signed In Fluency By: DURGA HUANG M.D. << Signature on File>> Reported By: DURGA HUANG M.D. Signed By: DURGA HUANG M.D. Tests performed at: [address] [address] Normal [facility] CREATon 07-17-2022 Creatinine [Mass/Vol] 0.81 mg/dL Normal 0.50-0.90 [facility] Comment on above: Performed By: #### L 200.3190, L200.3001 #### [facility] - [facility] [address] [place] [address] 52935 eGFR if AFR ELOISA > 60 ml/min/1.73m2 Normal [facility] Comment on above: Result Comment: eGFR >= 60 Indicates normal kidney function. * eGFR IS AN ESTIMATE * (AFR ELOISA = ) (non-AFR AM = NON-) MDRD calculation used in the eGFR should not be used to dose medications. For further limitations of the eGFR please refer to the Physician Website or the National Kidney Disease Education Program website (www.nkdep.nih.gov). Performed By: #### L 200.3190, L200.3001 #### [facility] - LABORATORY [address] [place] [address] eGFR nonAFR Eloisa > 60 ml/Min/1.73m2 Normal U [facility] Comment on above: Performed By: #### L 200.3190, L200.3001 #### ML - LABORATORY [address] [place] [address] CREATININE BLDon 07-17-2022 Creatinine [Mass/Vol] 0.81 mg/dL 0.50 - 0.90 mg/dL [facility] eGFR-All Other Races > 60 ml/Min/1.73m2 [facility] GFR/1.73 sq M.predicted among blacks MDRD (S/P/Bld) [Vol rate/Area] mL/min/{1.73_m2} [facility] PROGRESS NOTEon 07-17-2022 PROGRESS NOTE [facility] [place] [address] HEALTH INFORMATION MANAGEMENT PROGRESS NOTE Patient: KAITLYN ESCOBAR I KENTRELL PACHECO M.D. [id number] [age] F Status: ADM IN [facility] 2922-A DATE OF PROGRESS NOTE: 07/17/2022 TIME: 7:45 a.m. SUBJECTIVE: A 72-year-old white female came in with a partial small bowel obstruction, possible ileus with UTI. She actually passed some gas, had a little bowel movement today, and is tolerating clears. Still gets some crampy pain at times. OBJECTIVE: VITAL SIGNS: Stable. Afebrile. ABDOMEN: Soft, nontender. ASSESSMENT: A 72-year-old white female with urinary tract infection, being treated per Medicine. Second issue is this partial small bowel obstruction, which clinically is getting better. Plan is to increase to regular diet today. 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 Moseley a year or two ago at time of surgery. She understands that, seems to be doing better, understands this will be a lifelong issue that may flare up at times, and she is in agreement. If it would get bad enough, she would have to have surgery [place], but she seems to be improving. We will do regular diet. Report#: Dict ID [id number] / Int ID [id number] KENTRELL PACHECO M.D. cc: KENTRELL PACHECO M.D. << Signature on File>> Reported By: KENTRELL PACHECO M.D. Signed By: KENTRELL PACHECO M.D. Tests performed at: [place] [address] Normal [facility] PROGRESS NOTE [facility] [place] [address] HEALTH INFORMATION MANAGEMENT PROGRESS NOTE Patient: KAITLYN ESCOBAR I KENTRELL PACHECO M.D. [id number] [age] F Status: ADM IN [facility] 2922-A DATE OF PROGRESS NOTE: 07/16/2022 LOCATION: [facility]. SUBJECTIVE: 72-year-old white female, less discomfort, nausea, actually passing gas, tolerating clear liquids. OBJECTIVE: VITAL SIGNS: Stable. Afebrile. KUB is pending. ABDOMEN: Soft, less tender, less distended. ASSESSMENT: 72-year-old white female, probable partial small-bowel obstruction versus ileus with the UTI is improving. PLAN: We will put her up to full liquids today if she tolerates that. Films look good. Regular food tomorrow and discharge when okay from the medical standpoint. I will check on her again tomorrow. Report#: Dict ID [id number] / Int ID [id number] KENTRELL PACHECO M.D. cc: KENTRELL PACHECO M.D. << Signature on File>> Reported By: KENTRELL PACHECO M.D. Signed By: KENTRELL PACHECO M.D. Tests performed at: [address] [address] Normal [facility] XR ABDOMEN 1V SPECIFYon - [facility] BMPon 07-16-2022 Anion gap [Moles/Vol] 14.5 mmol/L Low 15-22 [facility] Comment on above: Performed By: #### L 200.3190, L200.3001 #### ML - LABORATORY [address] [place] [address] Calcium [Mass/Vol] 8.4 mg/dL Low 8.8-10.2 [facility] Comment on above: Performed By: #### L 200.3190, L200.3001 #### ML - LABORATORY [address] [place] [address] Chloride [Moles/Vol] 111 mmol/L High 98-107 [facility] Comment on above: Performed By: #### L 200.3190, L200.3001 #### ML - LABORATORY [address] [place] [address] CO2 [Moles/Vol] 20 mmol/L Low 22-29 [facility] Comment on above: Performed By: #### L 200.3190, L200.3001 #### ML - LABORATORY [address] [place] [address] Creatinine [Mass/Vol] 0.78 mg/dL Normal 0.50-0.90 [facility] Comment on above: Performed By: #### L 200.3190, L200.3001 #### ML - LABORATORY [address] [place] [address] eGFR if AFR ELOISA > 60 ml/min/1.73m2 Normal [facility] Comment on above: Result Comment: eGFR >= 60 Indicates normal kidney function. * eGFR IS AN ESTIMATE * (AFR ELOISA = ) (non-AFR AM = NON-) MDRD calculation used in the eGFR should not be used to dose medications. For further limitations of the eGFR please refer to the Physician Website or the National Kidney Disease Education Program website (www.nkdep.nih.gov). Performed By: #### L 200.3190, L200.3001 #### ML - LABORATORY [address] [place] [address] eGFR nonAFR Eloisa > 60 ml/Min/1.73m2 Normal [facility] Comment on above: Performed By: #### L 200.3190, L200.3001 #### [facility] - LABORATORY [address] [place] [address] Glucose [Mass/Vol] 105 mg/dL Normal 82-115 [facility] Comment on above: Performed By: #### L 200.3190, L200.3001 #### ML - LABORATORY [address] [place] [address] Potassium [Moles/Vol] 3.5 mmol/L Normal 3.5-5.0 [facility] Comment on above: Performed By: #### L 200.3190, L200.3001 #### [facility] - LABORATORY [address] [place] [address] Sodium [Moles/Vol] 142 mmol/L Normal 135-145 [facility] Comment on above: Performed By: #### L 200.3190, L200.3001 #### ML - LABORATORY [address] [place] [address] Urea nitrogen [Mass/Vol] 2 mg/dL Low 8-23 [facility] Comment on above: Performed By: #### L 200.3190, L200.3001 #### [facility] - LABORATORY [address] [place] [address] Basic metabolic 2000 panelon 07-16-2022 Anion gap [Moles/Vol] 14.5 mmol/L Low 15 - 2 2 mmol/L [facility] Calcium [Mass/Vol] 8.4 mg/dL Low 8.8 - 10. 2 mg/dL [facility] Chloride [Moles/Vol] 111 mmol/L High 98 - 10 7 mmol/L [facility] CO2 [Moles/Vol] 20 mmol/L Low 22 - 29 mmol/L [facility] Creatinine [Mass/Vol] 0.78 mg/dL 0.50 - 0.90 mg/dL [facility] eGFR-All Other Races > 60 ml/Min/1.73m2 [facility] GFR/1.73 sq M.predicted among blacks MDRD (S/P/Bld) [Vol rate/Area] mL/min/{1.73_m2} [facility] Glucose [Mass/Vol] 105 mg/dL 82 - 115 mg/dL [facility] Potassium [Moles/Vol] 3.5 mmol/L 3.5 - 5.0 mmol/L [facility] Sodium [Moles/Vol] 142 mmol/L 135 - 145 mmol/L [facility] Urea nitrogen [Mass/Vol] 2 mg/dL Low 8 - 23 mg/dL [facility] CBCon 07-16-2022 BASO# 0.10 x10(3) Normal 0.00-0.10 [facility] Comment on above: Performed By: #### L 200.0010 #### ML [facility] [address] [place] [address] Basophils/100 WBC (Bld) 1.0 % Normal 0.0-1.0 [facility] Comment on above: Performed By: #### L 200.0010 #### [facility] - LABORATORY [address] [place] [address] EOS# 0.30 x10(3) Normal 0.00-0.54 [facility] Comment on above: Performed By: #### L 200.0010 #### ML [facility] [address] [place] [address] Eosinophils/100 WBC (Bld) 5.3 % High 0.5-4.9 [facility] Comment on above: Performed By: #### L 200.0010 #### ML [facility] [address] [place] [address] Erythrocyte distribution width (RBC) [Ratio] 16.2 % High 12.5-15.7 [facility] Comment on above: Performed By: #### L 200.0010 #### ML [facility] [address] [place] [address] Hematocrit (Bld) [Volume fraction] 28.3 % Low 36.0-48.0 [facility] Comment on above: Performed By: #### L 200.0010 #### ML [facility] [address] [place] [address] Hemoglobin (Bld) [Mass/Vol] 9.3 g/dL Low 12.0-16.0 [facility] Comment on above: Performed By: #### L 200.0010 #### [facility] [address] [place] [address] LYMPH# 2.50 x10(3) Normal 1.00-3.50 [facility] Comment on above: Performed By: #### L 200.0010 #### ML [facility] [address] [place] [address] Lymphocytes/100 WBC (Bld) 39.6 % Normal 16.0-48.0 [facility] Comment on above: Performed By: #### L 200.0010 #### [facility] [address] [place] [address] MCH (RBC) [Entitic mass] 28.4 pg Low 28.5-32.9 [facility] Comment on above: Performed By: #### L 200.0010 #### ML [facility] [address] [place] [address] MCHC (RBC) [Mass/Vol] 33.0 g/dL Normal 33.0-36.0 [facility] Comment on above: Performed By: #### L 200.0010 #### ML [facility] [address] [place] [address] MCV (RBC) [Entitic vol] 86.1 fL Normal 80.0-99.0 [facility] Comment on above: Performed By: #### L 200.0010 #### ML - LABORATORY [address] [place] [address] MONO# 0.60 x10(3) Normal 0.30-0.80 [facility] Comment on above: Performed By: #### L 200.0010 #### ML [facility] [address] [place] [address] Monocytes/100 WBC (Bld) 9.0 % Normal 4.3-11.2 [facility] Comment on above: Performed By: #### L 200.0010 #### ML [facility] [address] [place] [address] NEUT# 2.90 x10(3) Normal 1.40-6.50 [facility] Comment on above: Performed By: #### L 200.0010 #### [facility] [address] [place] [address] 15011 Neutrophils/100 WBC (Bld) 45.1 % Normal 45.0-73.0 [facility] Comment on above: Performed By: #### L 200.0010 #### ML [facility] [address] [place] [address] 02922 Platelet mean volume (Bld) [Entitic vol] 8.2 fL Normal 7.5-9.5 [facility] Comment on above: Performed By: #### L 200.0010 #### ML [facility] [address] [place] [address] 49443 PLT 251 X10(3) Normal 150-450 [facility] Comment on above: Performed By: #### L 200.0010 #### ML [facility] [address] [place] [address] 35000 RBC 3.28 x10(6) Low 3.30-5.00 [facility] Comment on above: Performed By: #### L 200.0010 #### [facility] [address] [place] [address] 88240 WBC 6.4 x10(3) Normal 4.5-10.0 [facility] Comment on above: Performed By: #### L 200.0010 #### ML [facility] [address] [place] [address] 93079 CBC W Auto Differential pane l (Bld)on 07-16-2022 BASO ABS 0.10 x10(3) 0.00 - 0.10 x10(3) [facility] Basophils/100 WBC (Bld) 1.0 % 0.0 - 1.0 % [facility] EOS ABS 0.30 x10(3) 0.00 - 0.54 x10(3) [facility] Eosinophils/100 WBC (Bld) 5.3 % High 0.5 - 4.9 % [facility] Erythrocyte distribution width (RBC) [Ratio] 16.2 % High 12.5 - 15.7 % [facility] Hematocrit (Bld) [Volume fraction] 28.3 % Low 36.0 - 48.0 % [facility] Hemoglobin (Bld) [Mass/Vol] 9.3 g/dL Low 12.0 - 16.0 g/dL [facility] LYMPH ABS 2.50 x10(3) 1.00 - 3.50 x10(3) [facility] Lymphocytes/100 WBC (Bld) 39.6 % 16.0 - 48.0 % [facility] MCH (RBC) [Entitic mass] 28.4 pg Low 28.5 - 32.9 pg [facility] MCHC (RBC) [Mass/Vol] 33.0 g/dL 33.0 - 36.0 g/dL [facility] MCV (RBC) [Entitic vol] 86.1 fL 80.0 - 99.0 fl [facility] MONO ABS 0.60 x10(3) 0.30 - 0.80 x10(3) [facility] Monocytes/100 WBC (Bld) 9.0 % 4.3 - 11.2 % [facility] Neutrophil Ab 2.90 x10(3) 1.40 - 6.50 x10(3) [facility] Neutrophils/100 WBC (Bld) 45.1 % 45.0 - 73.0 % [facility] Platelet Count 251 X10(3) 150 - 450 X10(3) [facility] Platelet mean volume (Bld) [Entitic vol] 8.2 fL 7.5 - 9.5 fl [facility] RBC 3.28 x10(6) Low 3.30 - 5.00 x10(6) [facility] WBC 6.4 x10(3) 4.5 - 10.0 x10(3) [facility] ABDOMEN (KUB)1 VIEWon 2021 ABDOMEN (KUB)1 VIEW [place] [address] Name: KAITLYN ESCOBAR I Phys: KENTRELL PACHECO M.D. : [birth year] Age: 72 Sex: F Acct: [id number] Loc: 2SWEST Exam Date: 07/15/22 Status: ADM IN Radiology No.: Unit Number: [id number] Exam # Type/Exam [id number] RAD / ABDOMEN (KUB)1 VIEW EXAMINATION: ONE SUPINE XRAY VIEW(S) OF THE ABDOMEN 07/15/2022 6:30 am COMPARISON: CT abdomen and pelvis on 07/14/2022 HISTORY: ORDERING SYSTEM PROVIDED HISTORY: TECHNOLOGIST PROVIDED HISTORY: Reason for Exam: SBO FINDINGS: Gas is scattered through the small and large intestine. No dilated loops of intestine are seen. Contrast has advanced into the colon. There is no sign of free intraperitoneal air other abnormal gas collection. There are no pathologic calcifications. IMPRESSION: No sign of small bowel obstruction or other acute abnormality. Electronically signed By Durga Huang MD 07/15/2022 7:31:23 AM EST Workstation ID : [id number] < > Reported By: DURGA HUANG M.D. Signed In Fluency By: DURGA HUANG M.D. << Signature on File>> Reported By: DURGA HUANG M.D. Signed By: DURGA HUANG M.D. Tests performed at: [place] [address] Normal [facility] CREATon 07-15-2022 Creatinine [Mass/Vol] 0.98 mg/dL High 0.50-0.90 [facility] Comment on above: Performed By: #### L 200.2578, L200.9515 #### [facility] [address] [place] [address] 83800 eGFR if AFR ELOISA > 60 ml/min/1.73m2 Normal [facility] Comment on above: Result Comment: eGFR >= 60 Indicates normal kidney function. * eGFR IS AN ESTIMATE * (AFR ELOISA = ) (non-AFR AM = NON-) MDRD calculation used in the eGFR should not be used to dose medications. For further limitations of the eGFR please refer to the Physician Website or the National Kidney Disease Education Program website (www.nkdep.nih.gov). Performed By: #### L 200.3190, L200.3001 #### ML - LABORATORY [address] [place] [address] eGFR nonAFR Eloisa 56 [facility] Comment on above: Performed By: #### L 200.3190, L200.3001 #### ML - LABORATORY [address] [place] [address] CREATININE BLDon 07-15-2022 Creatinine [Mass/Vol] 0.98 mg/dL High 0.50 - 0.90 mg/dL [facility] eGFR-All Other Races 56 [facility] GFR/1.73 sq M.predicted among blacks MDRD (S/P/Bld) [Vol rate/Area] mL/min/{1.73_m2} [facility] PROGRESS NOTEon 07-15-2022 PROGRESS NOTE [facility] [address] HEALTH INFORMATION MANAGEMENT PROGRESS NOTE Patient: KAITLYN ESCOBAR KORTNEY AMAYA M.D. [id number] [age] F Status: ADM IN [facility] 2922-A DATE OF PROGRESS NOTE: 07/15/2022 I am seeing Ms. Escobar for concern of possible urinary tract infection, currently on ertapenem 1 g IV daily. She is n.p.o., complaining of vague abdominal pain, nausea. She does urinary symptoms despite being on empiric ertapenem. No fevers. Her micro data, her blood cultures remain negative. Urine culture is pending. PHYSICAL EXAMINATION: VITAL SIGNS: On exam, her temperature is 98.1, blood pressure 108/56, heart rate 74 beats per minute. LUNGS: Clear. HEART: S1, S2. ABDOMEN: Soft. There is some generalized tenderness. LABORATORY DATA: Her white count is 10.6, hemoglobin 12.1, platelet count 371,000. IMPRESSION: Concern of urinary tract infection. Currently on ertapenem 1 g daily. We will follow her micro data and clinical course. The patient currently is n.p.o. and has been seen by General Surgery on this admission. Report#: Dict ID [id number] / Int ID [id number] KORTNEY ANTON M.D. cc: KORTNEY ANTON M.D. << Signature on File>> Reported By: KORTNEY ANTON M.D. Signed By: KORTNEY ANTON M.D. Tests performed at: [place] [address] Normal [facility] PROGRESS NOTE [facility] [place] [address] HEALTH INFORMATION MANAGEMENT PROGRESS NOTE Patient: KAITLYN ESCOBAR I KENTRELL PACHECO M.D. [id number] [age] F Status: ADM IN [facility] 2922-A DATE OF PROGRESS NOTE: 07/15/2022 Tara doing the note. SUBJECTIVE: 72-year-old white female, did have a bowel movement yesterday, feeling a little better today. OBJECTIVE: VITAL SIGNS: Stable, afebrile. ABDOMEN: No acute peritoneal signs. KUB pending today. ASSESSMENT: 72-year-old white female, partial small bowel obstruction, maybe improving. PLAN: To slowly advance diet as tolerated. Report#: Dict ID [id number] / Int ID [id number] KENTRELL PACHECO M.D. cc: KENTRELL PACHECO M.D. << Signature on File>> Reported By: KENTRELL PACHECO M.D. Signed By: KENTRELL PACHECO M.D. Tests performed at: [address] [address] Normal [facility] URINE CULTUREon 07-15-2022 Bacteria identified Cx Nom (U) XXX [facility] XR ABDOMEN 1V SPECIFYon 06-18 [facility] BLOOD CULTUREon 07-14-2022 Bacteria identified Cx Nom (Bld) CULTURE, BLOOD No growth 5 days SOURCE: BLOOD Test Performed By: [facility] [employer] [address] [place] [address] Senior Cyber Security Analyst: Sven Wasserman III, M.D. See Below Normal [facility] BMPon 07-14-2022 Anion gap [Moles/Vol] 16.3 mmol/L Normal 15-22 [facility] Comment on above: Performed By: #### L 200.3190, L200.3001 #### ML - [facility] [address] [place] [address] 89666 Calcium [Mass/Vol] 9.4 mg/dL Normal 8.8-10.2 [facility] Comment on above: Performed By: #### L 200.3190, L200.3001 #### ML - [facility] [address] [place] [address] 67104 Chloride [Moles/Vol] 100 mmol/L Normal 98-107 [facility] Comment on above: Performed By: #### L 200.3190, L200.3001 #### ML - [facility] [address] [place] [address] 36949 CO2 [Moles/Vol] 22 mmol/L Normal -29 [facility] Comment on above: Performed By: #### L 200.3190, L200.3001 #### ML - [facility] [address] [place] [address] 84561 Creatinine [Mass/Vol] 0.99 mg/dL High 0.50-0.90 [facility] Comment on above: Performed By: #### L 200.3190, L200.3001 #### ML - [facility] [address] [place] [address] 23236 eGFR if AFR ELOISA > 60 ml/min/1.73m2 Normal [facility] Comment on above: Result Comment: eGFR >= 60 Indicates normal kidney function. * eGFR IS AN ESTIMATE * (AFR ELOISA = ) (non-AFR AM = NON-) MDRD calculation used in the eGFR should not be used to dose medications. For further limitations of the eGFR please refer to the Physician Website or the National Kidney Disease Education Program website (www.nkdep.nih.gov). Performed By: #### L 200.3190, L200.3001 #### - LABORATORY [address] [place] [address] 60162 eGFR nonAFR Eloisa 55 Normal [facility] Comment on above: Performed By: #### L 200.3190, L200.3001 #### ML - [facility] [address] [place] [address] 84797 Glucose [Mass/Vol] 111 mg/dL Normal 82-115 [facility] Comment on above: Performed By: #### L 200.3190, L200.3001 #### ML - [facility] [address] [place] [address] 39781 Potassium [Moles/Vol] 4.3 mmol/L Normal 3.5-5.0 [facility] Comment on above: Performed By: #### L 200.3190, L200.3001 #### ML - [facility] [address] [place] [address] 40667 Sodium [Moles/Vol] 134 mmol/L Low 135-145 [facility] Comment on above: Performed By: #### L 200.3190, L200.3001 #### - LABORATORY [address] [place] [address] 86575 Urea nitrogen [Mass/Vol] 8 mg/dL Normal 8-23 [facility] Comment on above: Performed By: #### L 200.3190, L200.3001 #### ML - [facility] [address] [place] [address] 89683 CBCon 07-14-2022 BASO# 0.10 x10(3) Normal 0.00-0.10 [facility] Comment on above: Performed By: #### L 200.3190, L200.3001 #### ML - [facility] [address] [place] [address] 54014 Basophils/100 WBC (Bld) 0.9 % Normal 0.0-1.0 [facility] Comment on above: Performed By: #### L 200.3190, L200.3001 #### ML - [facility] [address] [place] [address] 87659 EOS# 0.10 x10(3) Normal 0.00-0.54 [facility] Comment on above: Performed By: #### L 200.3190, L200.3001 #### ML - [facility] [address] [place] [address] 57947 Eosinophils/100 WBC (Bld) 0.8 % Normal 0.5-4.9 [facility] Comment on above: Performed By: #### L 200.3190, L200.3001 #### ML - [facility] [address] [place] [address] 11247 Erythrocyte distribution width (RBC) [Ratio] 16.0 % High 12.5-15.7 [facility] Comment on above: Performed By: #### L 200.3190, L200.3001 #### ML - [facility] [address] [place] [address] 00374 Hematocrit (Bld) [Volume fraction] 36.9 % Normal 36.0-48.0 [facility] Comment on above: Performed By: #### L 200.3190, L200.3001 #### ML - [facility] [address] [place] [address] 86465 Hemoglobin (Bld) [Mass/Vol] 12.1 g/dL Normal 12.0-16.0 [facility] Comment on above: Performed By: #### L 200.3190, L200.3001 #### ML - [facility] [address] [place] [address] 17483 LYMPH# 3.90 x10(3) High 1.00-3.50 [facility] Comment on above: Performed By: #### L 200.3190, L200.3001 #### - LABORATORY [address] [place] [address] 39115 Lymphocytes/100 WBC (Bld) 36.4 % Normal 16.0-48.0 [facility] Comment on above: Performed By: #### L 200.3190, L200.3001 #### ML - [facility] [address] [place] [address] 06837 MCH (RBC) [Entitic mass] 28.5 pg Normal 28.5-32.9 [facility] Comment on above: Performed By: #### L 200.3190, L200.3001 #### ML - [facility] [address] [place] [address] 62522 MCHC (RBC) [Mass/Vol] 32.7 g/dL Low 33.0-36.0 [facility] Comment on above: Performed By: #### L 200.3190, L200.3001 #### ML [facility] [address] [place] [address] 37102 MCV (RBC) [Entitic vol] 87.1 fL Normal 80.0-99.0 [facility] Comment on above: Performed By: #### L 200.3190, L200.3001 #### - LABORATORY [address] [place] [address] 14397 MONO# 0.80 x10(3) Normal 0.30-0.80 [facility] Comment on above: Performed By: #### L 200.3190, L200.3001 #### ML - [facility] [address] [place] [address] 41236 Monocytes/100 WBC (Bld) 7.4 % Normal 4.3-11.2 [facility] Comment on above: Performed By: #### L 200.3190, L200.3001 #### ML - [facility] [address] [place] [address] 44141 NEUT# 5.80 x10(3) Normal 1.40-6.50 [facility] Comment on above: Performed By: #### L 200.3190, L200.3001 #### ML - [facility] [address] [place] [address] 66493 Neutrophils/100 WBC (Bld) 54.5 % Normal 45.0-73.0 [facility] Comment on above: Performed By: #### L 200.3190, L200.3001 #### ML - [facility]ORY [address] [place] [address] 50210 Platelet mean volume (Bld) [Entitic vol] 8.4 fL Normal 7.5-9.5 [facility] Comment on above: Performed By: #### L 200.3190, L200.3001 #### ML - LAB[facility]ORY [address] [place] [address] 69414 PLT 371 X10(3) Normal 150-450 [facility] Comment on above: Performed By: #### L 200.3190, L200.3001 #### ML - LAB[facility]ORY [address] [place] [address] 60838 RBC 4.23 x10(6) Normal 3.30-5.00 [facility] Comment on above: Performed By: #### L 200.3190, L200.3001 #### ML - LAB[facility]ATORY [address] [place] [address] 72691 WBC 10.6 x10(3) High 4.5-10.0 [facility] Comment on above: Performed By: #### L 200.3190, L200.3001 #### ML - LABORATORY [address] [place] [address] ABD/PEL W CONTRASTon 06-18 CT ABD/PEL W CONTRAST [address] [address] Name: KAITLYN ESCOBAR I Phys: SHARON FUNEZ D.O. : [birth year] Age: 72 Sex: F Acct: [id number] Loc: ED Exam Date: 07/13/22 Status: REG ER Radiology No.: Unit Number: [id number] Exam # Type/Exam [id number] CT / CT ABD/PEL W CONTRAST EXAMINATION: CT OF THE ABDOMEN AND PELVIS WITH CONTRAST 07/14/2022 1:08 am TECHNIQUE: CT of the abdomen and pelvis was performed with the administration of intravenous contrast. Multiplanar reformatted images are provided for review. Automated exposure control, iterative reconstruction, and/or weight based adjustment of the mA/kV was utilized to reduce the radiation dose to as low as reasonably achievable. COMPARISON: CT abdomen and pelvis on 05/10/2022 HISTORY: ORDERING SYSTEM PROVIDED HISTORY: TECHNOLOGIST PROVIDED HISTORY: Reason for Exam: LLQ PAIN Nausea and vomiting. FINDINGS: Lower Chest: No acute findings. Organs: The liver is normal in size. Small right hepatic cyst is stable. Gallbladder has been removed. Mild prominence of bile ducts is consistent with prior cholecystectomy and patient age. The pancreas, spleen, adrenal glands, kidneys, and ureters show no sign of acute abnormality. GI/Bowel: The stomach and duodenum are unremarkable. The small intestine is remarkable for previous surgery with anastomosis seen in the midline of the lower abdomen. There is dilatation of a few loops of small intestine proximal to the anastomosis with air-fluid levels present. Distal small bowel is not dilated. Contrast does advance through the distal small intestine into the colon. There is diverticulosis of the colon without evidence of diverticulitis. The appendix is not seen. No free intraperitoneal air is present. Pelvis: Urinary bladder is normal in size and contains no stones. Uterus has been removed. There is no abnormal fluid collection in the pelvis. Peritoneum/Retroperito neum: Abdominal aorta is nonaneurysmal. There is no retroperitoneal lymph node enlargement. Bones/Soft Tissues: No acute findings. IMPRESSION: Evidence of partial obstruction in the small intestine at the site of a small bowel anastomosis in distal half of the small intestine. There is no perforation or abscess. Electronically signed By Durga Huang MD 07/14/2022 1:24:12 AM EST Workstation ID : [id number] < > Reported By: DURGA HUANG M.D. Signed In Fluency By: DURGA HUANG M.D. << Signature on File>> Reported By: DURGA HUANG M.D. Signed By: DURGA HUANG M.D. Tests performed at: [address] [address] Normal [facility] EMERGENCY DEPARTMENT REPORTo n 07-14-2022 EMERGENCY [place] [address] HEALTH INFORMATION MANAGEMENT EMERGENCY DEPARTMENT REPORT Patient: KAITLYN ESCOBAR ELLEN K D.O. [id number] [age] F Status: DIS IN 2SWEST 2922-A Date of Service: 07/13/22 ADDENDUM: PAST SURGICAL HISTORY: Hysterectomy, cholecystectomy, bowel resection. MEDICAL HISTORY: Chronic kidney disease, diabetes, small bowel obstruction, hypothyroidism, DVT. FAMILY HISTORY: Hypertension. MEDICATIONS: Reviewed on the chart. ALLERGIES: Reviewed on the chart. PHYSICAL EXAMINATION: VITAL SIGNS: Blood pressure is 158/96, temp is 97.6, heart rate 94, respiratory rate 18, sat is 100% on room air. GENERAL: She is alert, oriented, well-developed, well-nourished 72-year-old lady in no distress other than occasional whimper of pain. HEENT: Her head is atraumatic, normocephalic. No scleral icterus. No nasal drainage. Oral mucosa is pink and moist. NECK: Supple. CARDIOVASCULAR: Regular. CHEST: Breath sounds are clear. Respirations are unlabored. ABDOMEN: Soft, tender in the left lower quadrant. No rebound, rigidity, or guarding. EXTREMITIES: Intact x4 without clubbing, cyanosis, edema. NEUROLOGIC: I do not appreciate focal deficits. SKIN: Warm and dry. ED COURSE: In the ED, I found that she has a persistent urinary tract infection despite about a week's worth of antibiotics. Her urine today shows 40-50 whites, large leuks. It is negative for nitrites and she has 2+ bacteria, though she does have some . She will be started on antibiotics for that. Her CT of abdomen and pelvis shows partial obstruction at small intestine at the site of the small bowel anastomosis. No perforation or abscess. The patient's pain has been treated. She has been started on Rocephin for her persistent UTI. She has been discussed with Dr. Brown and will be admitted to med/surg. Her rapid COVID is pending at this time. Final dictation by Marilee for Report#: Dict ID [id number] / Int ID [id number] 07/23/22 2249 SHARON FUNEZ D.O. cc: ISRA GOLDMAN,KENTRELL Vyas M.D.; SHARON FUNEZ D.O. << Signature on File>> Reported By: SHARON FUNEZ D.O. Signed By: SHARON FUNEZ D.O. Tests performed at: [facility] [address] [place], [place] [address] Normal [facility] [place]ER[place]ENCY [place] [address] HEALTH INFORMATION MANAGEMENT EMERGENCY DEPARTMENT REPORT Patient: KAITLYN ESCOBAR I SHARON FUNEZ D.O. [id number] [age] F Status: DIS IN 2[facility] 2922-A Date of Service: 07/13/22 CHIEF COMPLAINT: This is a 72-year old whose chief complaint is abdominal pain. HISTORY OF PRESENT ILLNESS: The patient says she was here last Sunday or a week ago, diagnosed with urinary tract infection, started on Augmentin that caused her terrible diarrhea. She called Dr. Dhaliwal about that on Sunday, he changed her to Macrobid which she has been taking faithfully since then, but she has been very nauseated. She has not been able to tolerate her p.o. Zofran at home. She has not had any p.o. intake as a result of her nausea, and now, she developed left lower quadrant pain in the last 24 hours. REVIEW OF SYSTEMS: She denies a fever on other systems review. She denies any chest pain, shortness of breath, cough. She denies any trauma. She denies any urinary symptoms. Remainder of 10-point review of systems negative. SOCIAL HISTORY: She does not smoke, drink, use drugs of abuse. SURGICAL HISTORY: Hysterectomy, cholecystectomy, bowel resection. MEDICAL HISTORY: Diabetes, chronic kidney disease, small bowel obstruction, hypothyroidism, DVT. FAMILY HISTORY: Hypertension. MEDICATIONS: Reviewed, on the chart. ALLERGIES: Reviewed, on the chart. PHYSICAL EXAMINATION: VITAL SIGNS: Blood pressure , temp 97.6, heart rate 94, respiratory rate 18, pulse ox 100%. GENERAL: She is alert, oriented, well developed DICTATION ENDS HERE. Report#: Dict ID [id number] / Int ID [id number] 07/23/22 2249 SHARON FUNEZ D.O. cc: SIRA GOLDMAN,KENTRELL Vyas M.D.; SHARON FUNEZ D.O. << Signature on File>> Reported By: SHARON FUNEZ D.O. Signed By: SHARON FUNEZ D.O. Tests performed at: [address] [address] Normal [facility] RAPID COVIDon 07-14-2022 SARS-CoV-2 (COVID-19) RNA RENATA+probe Ql (Unsp spec) Negative Normal NEGATIVE [facility] Comment on above: Result Comment: THIS TEST HAS BEEN AUTHORIZED BY FDA UNDER AN EMERGENCY USE AUTHORIZATION (EUA). NEGATIVE: NEGATIVE FOR COVID19 (SARS-CoV-2) BY PCR POSITIVE: POSITIVE FOR COVID19 (SARS-CoV-2) BY PCR PRESUMPTIVE POSITIVE: POSITIVE BY SINGLE WOO SARS-CoV TARGET. SARS-CoV-1 CANNOT BE EXCLUDED, BUT IS NOT CURRENTLY CIRCULATING IN [place]. Performed By: #### L 200.3190, L200.3001 #### [facility] [address] [place] [address] SARS-CoV-2 (COVID-19) RNA NA A+probe Ql (Resp)on 07-14-2022 SARS-CoV-2 (COVID-19) RNA RENATA+probe Ql (Unsp spec) Negative NEGATIVE [facility] UA W/C&Son 07-14-2022 Bilirubin Ql (U) Negative Normal NEGATIVE [facility] Comment on above: Order Comment: Urine Specimen Source+ CLEAN CATCH Performed By: #### L 200.3190, L200.3001 #### ML - LAB[facility]ATORY [address] [place] [address] 86872 Color (U) YELLOW Normal YELLOW [facility] Comment on above: Order Comment: Urine Specimen Source+ CLEAN CATCH Performed By: #### L 200.3190, L200.3001 #### [facility] - [facility] [address] [place] [address] 42922 Glucose Ql (U) Negative Normal NEGATIVE [facility] Comment on above: Order Comment: Urine Specimen Source+ CLEAN CATCH Performed By: #### L 200.3190, L200.3001 #### [facility] - [facility] [address] [place] [address] 41003 Hemoglobin Ql (U) Negative Normal NEGATIVE [facility] Comment on above: Order Comment: Urine Specimen Source+ CLEAN CATCH Performed By: #### L 200.3190, L200.3001 #### [facility] - [facility] [address] [place] [address] 94410 Leukocyte esterase Test strip Ql (U) LARGE Normal NEGATIVE [facility] Comment on above: Order Comment: Urine Specimen Source+ CLEAN CATCH Performed By: #### L 200.3190, L200.3001 #### [facility] - [facility] [address] [place] [address]2732 Nitrite Ql (U) Negative Normal NEGATIVE [facility] Comment on above: Order Comment: Urine Specimen Source+ CLEAN CATCH Performed By: #### L 200.3190, L200.3001 #### [facility] - [facility] [address] [place] [address] 50284 pH (U) 6.0 [pH] Normal 5.0-8.0 [facility] Comment on above: Order Comment: Urine Specimen Source+ CLEAN CATCH Performed By: #### L 200.3190, L200.3001 #### [facility] - [facility] [address] [place] [address] Protein Ql (U) Negative Normal [facility] Comment on above: Order Comment: Urine Specimen Source+ CLEAN CATCH Performed By: #### L 200.3190, L200.3001 #### ML - LABORATORY [address] [place] [address] 45029 URINE APPEARANC CLEAR Normal CLEAR [facility] Comment on above: Order Comment: Urine Specimen Source+ CLEAN CATCH Performed By: #### L 200.3190, L200.3001 #### ML - [facility] [address] [place] [address] 19844 URINE KETONE Negative Normal NEGATIVE [facility] Comment on above: Order Comment: Urine Specimen Source+ CLEAN CATCH Performed By: #### L 200.3190, L200.3001 #### ML - [facility] [address] [place] [address] 80667 URINE SPECIFIC 1.010 Normal 1.001-1.035 [facility] Comment on above: Order Comment: Urine Specimen Source+ CLEAN CATCH Performed By: #### L 200.3190, L200.3001 #### ML - [facility] [address] [place] [address] 77380 URINE UROBILINO 0.2 EU/DL Normal 0.2-1.0 [facility] Comment on above: Order Comment: Urine Specimen Source+ CLEAN CATCH Performed By: #### L 200.3190, L200.3001 #### ML - [facility] [address] [place] [address] 28951 URINE MICROSCOPon 07-14-2022 RENAL EPI FEW Normal NEGATIVE [facility] Comment on above: Order Comment: Urine Specimen Source+ CLEAN CATCH Performed By: #### L 200.3190, L200.3001 #### ML - [facility] [address] [place] [address] 47572 SQUAMOUS MANY Normal NEGATIVE [facility] Comment on above: Order Comment: Urine Specimen Source+ CLEAN CATCH Performed By: #### L 200.3190, L200.3001 #### ML - [facility] [address] [place] [address] 19647 URINE BACTERIA 2+ Normal NEGATIVE [facility] Comment on above: Order Comment: Urine Specimen Source+ CLEAN CATCH Performed By: #### L 200.3190, L200.3001 #### ML - [facility] [address] [place] [address] 23845 URINE RBC 1-3 Normal 0-2 [facility] Comment on above: Order Comment: Urine Specimen Source+ CLEAN CATCH Performed By: #### L 200.3190, L200.3001 #### ML - [facility] LABORATORY [address] [place] [address] URINE WBC 40-50 Normal 0-5 [facility] Comment on above: Order Comment: Urine Specimen Source+ CLEAN CATCH Performed By: #### L 200.3190, L200.3001 #### ML - [facility] [address] [place] [address] Urine Cultureon 07-14-2022 Bacteria identified Cx Nom (U) CULTURE, URINE MIXED MICROBIOTA >=100,000 CFU/ml Mixed microbiota No further workup. Mixed microbiota can be due to???urine???contamina tion with skin bacteria at time of collection or presence of a long-term urinary catheter. If a new culture is needed, please consider re-education of the patient on proper midstream co llection technique or straight catheterization for???urine???collecti on. SOURCE: URINE Test Performed By: [facility] [address] [place] [address] Senior Cyber Security Analyst: Sven Wasserman III, M.D. See Below Normal [facility] Basic metabolic 2000 panelon 07-13-2022 Anion gap [Moles/Vol] 16.3 mmol/L 15 - 2 2 mmol/L [facility] Calcium [Mass/Vol] 9.4 mg/dL 8.8 - 10. 2 mg/dL [facility] Chloride [Moles/Vol] 100 mmol/L 98 - 10 7 mmol/L [facility] CO2 [Moles/Vol] 22 mmol/L 22 - 29 mmol/L [facility] Creatinine [Mass/Vol] 0.99 mg/dL High 0.50 - 0.90 mg/dL [facility] eGFR-All Other Races [facility] GFR/1.73 sq M.predicted among blacks MDRD (S/P/Bld) [Vol rate/Area] mL/min/{1.73_m2} [facility] Glucose [Mass/Vol] 111 mg/dL 82 - 115 mg/dL [facility] Potassium [Moles/Vol] 4.3 mmol/L 3.5 - 5.0 mmol/L [facility] Sodium [Moles/Vol] 134 mmol/L Low 135 - 145 mmol/L [facility] Urea nitrogen [Mass/Vol] 8 mg/dL 8 - 23 mg/dL [facility] CBC W Auto Differential pane l (Bld)on 07-13-2022 BASO ABS 0.10 x10(3) 0.00 - 0.10 x10(3) [facility] Basophils/100 WBC (Bld) 0.9 % 0.0 - 1.0 % [facility] EOS ABS 0.10 x10(3) 0.00 - 0.54 x10(3) [facility] Eosinophils/100 WBC (Bld) 0.8 % 0.5 - 4.9 % [facility] Erythrocyte distribution width (RBC) [Ratio] 16.0 % High 12.5 - 15.7 % [facility] Hematocrit (Bld) [Volume fraction] 36.9 % 36.0 - 48.0 % [facility] Hemoglobin (Bld) [Mass/Vol] 12.1 g/dL 12.0 - 16.0 g/dL [facility] LYMPH ABS 3.90 x10(3) High 1.00 - 3.50 x10(3) [facility] Lymphocytes/100 WBC (Bld) 36.4 % 16.0 - 48.0 % [facility] MCH (RBC) [Entitic mass] 28.5 pg 28.5 - 32.9 pg [facility] MCHC (RBC) [Mass/Vol] 32.7 g/dL Low 33.0 - 36.0 g/dL [facility] MCV (RBC) [Entitic vol] 87.1 fL 80.0 - 99.0 fl [facility] MONO ABS 0.80 x10(3) 0.30 - 0.80 x10(3) [facility] Monocytes/100 WBC (Bld) 7.4 % 4.3 - 11.2 % [facility] Neutrophil Ab 5.80 x10(3) 1.40 - 6.50 x10(3) [facility] Neutrophils/100 WBC (Bld) 54.5 % 45.0 - 73.0 % [facility] Platelet Count 371 X10(3) 150 - 450 X10(3) [facility] Platelet mean volume (Bld) [Entitic vol] 8.4 fL 7.5 - 9.5 fl [facility] RBC 4.23 x10(6) 3.30 - 5.00 x10(6) [facility] WBC 10.6 x10(3) High 4.5 - 10.0 x10(3) [facility] CT ABD/PEL W IVCONon 022 [facility] Urinalysis complete panel (U )on 07-13-2022 Appearance (U) CLEAR CLEAR [facility] Bacteria, Urine 2+ NEGATIVE [facility] Bilirubin, Urine Negative NEGATIVE [facility] Blood, Urine Negative NEGATIVE [facility] Color (U) YELLOW YELLOW [facility] Glucose Ql (U) Negative NEGATIVE MG/DL [facility] Ketones Ql (U) Negative NEGATIVE MG/DL [facility] Leukocytes LARGE NEGATIVE [facility] Nitrites Urine Negative NEGATIVE [facility] pH (U) 6.0 [pH] 5.0 - 8.0 [facility] Protein.monoclonal (U) [Mass/Vol] Negative NEGATIVE MG/DL [facility] RBC, Urine 1-3 0 - 2 [facility] Renal Epithelial FEW NEGATIVE [facility] Specific [place], Ur 1.010 1.001 - 1.035 [facility] Squamous Epithelial Cells MANY NEGATIVE [facility] Urobilinogen, Urine 0.2 EU/DL 0.2 - 1. 0 EU/DL [facility] WBC, Urine 40-50 0 - 5 [facility] BMPon 07-07-2022 Anion gap [Moles/Vol] 18.7 mmol/L Normal 15-22 [facility] Comment on above: Performed By: #### L 100.0030, L100.0010, L100.0350 ####ML [facility] [id number] [place] [address] Calcium [Mass/Vol] 9.5 mg/dL Normal 8.8-10.2 [facility] Comment on above: Performed By: #### L 100.0030, L100.0010, L100.0350 ####ML - [id number] [place] [address] Chloride [Moles/Vol] 105 mmol/L Normal 98-107 [facility] Comment on above: Performed By: #### L 100.0030, L100.0010, L100.0350 ####ML [facility] [id number] [place] [address] CO2 [Moles/Vol] 20 mmol/L Low 22-29 [facility] Comment on above: Performed By: #### L 100.0030, L100.0010, L100.0350 #### - [id number] [place] [address] Creatinine [Mass/Vol] 1.33 mg/dL High 0.50-0.90 [facility] Comment on above: Performed By: #### L 100.0030, L100.0010, L100.0350 #### - [id number] [place] [address] 80966 eGFR if AFR ELOISA 48 [facility] Comment on above: Result Comment: eGFR >= 60 Indicates normal kidney function. * eGFR IS AN ESTIMATE * (AFR ELOISA = ) (non-AFR AM = NON-) MDRD calculation used in the eGFR should not be used to dose medications. For further limitations of the eGFR please refer to the Physician Website or the National Kidney Disease Education Program website (www.nkdep.nih.gov). Performed By: #### L 100.0030, L100.0010, L100.0350 ####[facility] [id number] [place] [address] eGFR nonAFR Eloisa 39 [facility] Comment on above: Performed By: #### L 100.0030, L100.0010, L100.0350 ####[facility] [id number] [place] [address] Glucose [Mass/Vol] 99 mg/dL Normal 82-115 [facility] Comment on above: Performed By: #### L 100.0030, L100.0010, L100.0350 ####[facility] [id number] [place] [address] Potassium [Moles/Vol] 4.7 mmol/L Normal 3.5-5.0 [facility] Comment on above: Performed By: #### L 100.0030, L100.0010, L100.0350 ####ML - [facility] [id number] [place] [address] Sodium [Moles/Vol] 139 mmol/L Normal 135-145 [facility] Comment on above: Performed By: #### L 100.0030, L100.0010, L100.0350 ####ML - [facility] [id number] [place] [address] Urea nitrogen [Mass/Vol] 14 mg/dL Normal 8-23 [facility] Comment on above: Performed By: #### L 100.0030, L100.0010, L100.0350 ####ML - [facility] [id number] [place] [address] Basic metabolic 2000 panelon 07-07-2022 Anion gap [Moles/Vol] 18.7 mmol/L 15 - 2 2 mmol/L [facility] Calcium [Mass/Vol] 9.5 mg/dL 8.8 - 10. 2 mg/dL [facility] Chloride [Moles/Vol] 105 mmol/L 98 - 10 7 mmol/L [facility] CO2 [Moles/Vol] 20 mmol/L Low 22 - 29 mmol/L [facility] Creatinine [Mass/Vol] 1.33 mg/dL High 0.50 - 0.90 mg/dL [facility] eGFR-All Other Races [facility] GFR/1.73 sq M.predicted among blacks MDRD (S/P/Bld) [Vol rate/Area] 48 mL/min/{1.73_m2} [facility] Glucose [Mass/Vol] 99 mg/dL 82 - 115 mg/dL [facility] Potassium [Moles/Vol] 4.7 mmol/L 3.5 - 5.0 mmol/L [facility] Sodium [Moles/Vol] 139 mmol/L 135 - 145 mmol/L [facility] Urea nitrogen [Mass/Vol] 14 mg/dL 8 - 23 mg/dL [facility] CBCon 07-07-2022 BASO# 0.00 x10(3) Normal 0.00-0.10 [facility] Comment on above: Performed By: #### L 301.0100, L301.0120, L301.0105 #### - LABORATORY [address] [place] [address] 24631 Basophils/100 WBC (Bld) 0.4 % Normal 0.0-1.0 [facility] Comment on above: Performed By: #### L 301.0100, L301.0120, L301.0105 #### - LABORATORY [address] [place] [address] 77222 EOS# 0.00 x10(3) Normal 0.00-0.54 [facility] Comment on above: Performed By: #### L 301.0100, L301.0120, L301.0105 #### [facility] LABORATORY [address] [place] [address] 74139 Eosinophils/100 WBC (Bld) 0.4 % Low 0.5-4.9 [facility] Comment on above: Performed By: #### L 301.0100, L301.0120, L301.0105 #### - LABORATORY [address] [place] [address] 84921 Erythrocyte distribution width (RBC) [Ratio] 16.6 % High 12.5-15.7 [facility] Comment on above: Performed By: #### L 301.0100, L301.0120, L301.0105 #### - LABORATORY [address] [place] [address] 05396 Hematocrit (Bld) [Volume fraction] 35.9 % Low 36.0-48.0 [facility] Comment on above: Performed By: #### L 301.0100, L301.0120, L301.0105 #### - LABORATORY [address] [place] [address] 08986 Hemoglobin (Bld) [Mass/Vol] 11.4 g/dL Low 12.0-16.0 [facility] Comment on above: Performed By: #### L 301.0100, L301.0120, L301.0105 #### - LABORATORY [address] [place] [address] 64369 LYMPH# 2.20 x10(3) Normal 1.00-3.50 [facility] Comment on above: Performed By: #### L 301.0100, L301.0120, L301.0105 #### [facility] LABORATORY [address] [place] [address] 89876 Lymphocytes/100 WBC (Bld) 25.3 % Normal 16.0-48.0 [facility] Comment on above: Performed By: #### L 301.0100, L301.0120, L301.0105 #### - LABORATORY [address] [place] [address] 68655 MCH (RBC) [Entitic mass] 28.1 pg Low 28.5-32.9 [facility] Comment on above: Performed By: #### L 301.0100, L301.0120, L301.0105 #### [facility] LABORATORY [address] [place] [address] 67046 MCHC (RBC) [Mass/Vol] 31.9 g/dL Low 33.0-36.0 [facility] Comment on above: Performed By: #### L 301.0100, L301.0120, L301.0105 #### [facility] LABORATORY [address] [place] [address] 69405 MCV (RBC) [Entitic vol] 88.2 fL Normal 80.0-99.0 [facility] Comment on above: Performed By: #### L 301.0100, L301.0120, L301.0105 #### [facility] LAB[facility]ATORY [address] [place] [address] 52045 MONO# 0.60 x10(3) Normal 0.30-0.80 [facility] Comment on above: Performed By: #### L 301.0100, L301.0120, L301.0105 #### [facility] LAB[facility] [address] [place] [address] 45548 Monocytes/100 WBC (Bld) 6.7 % Normal 4.3-11.2 [facility] Comment on above: Performed By: #### L 301.0100, L301.0120, L301.0105 #### [facility] LAB[facility] [address] [place] [address] 44701 NEUT# 5.70 x10(3) Normal 1.40-6.50 [facility] Comment on above: Performed By: #### L 301.0100, L301.0120, L301.0105 #### [facility] LAB[facility] [address] [place] [address] 30965 Neutrophils/100 WBC (Bld) 67.2 % Normal 45.0-73.0 [facility] Comment on above: Performed By: #### L 301.0100, L301.0120, L301.0105 #### [facility] [address] [place] [address] 31018 Platelet mean volume (Bld) [Entitic vol] 8.1 fL Normal 7.5-9.5 [facility] Comment on above: Performed By: #### L 301.0100, L301.0120, L301.0105 #### [facility] LAB[facility] [address] [place] [address] 44616 PLT 332 X10(3) Normal 150-450 [facility] Comment on above: Performed By: #### L 301.0100, L301.0120, L301.0105 #### [facility] [address] [place] [address] 12685 RBC 4.07 x10(6) Normal 3.30-5.00 [facility] Comment on above: Performed By: #### L 301.0100, L301.0120, L301.0105 #### [facility] [address] [place] [address] 77268 WBC 8.5 x10(3) Normal 4.5-10.0 [facility] Comment on above: Performed By: #### L 301.0100, L301.0120, L301.0105 #### [facility] [address] [place] [address] 61881 CBC W Auto Differential pane l (Bld)on 07-07-2022 BASO ABS 0.00 x10(3) 0.00 - 0.10 x10(3) [facility] Basophils/100 WBC (Bld) 0.4 % 0.0 - 1.0 % [facility] EOS ABS 0.00 x10(3) 0.00 - 0.54 x10(3) [facility] Eosinophils/100 WBC (Bld) 0.4 % Low 0.5 - 4.9 % [facility] Erythrocyte distribution width (RBC) [Ratio] 16.6 % High 12.5 - 15.7 % [facility] Hematocrit (Bld) [Volume fraction] 35.9 % Low 36.0 - 48.0 % [facility] Hemoglobin (Bld) [Mass/Vol] 11.4 g/dL Low 12.0 - 16.0 g/dL [facility] LYMPH ABS 2.20 x10(3) 1.00 - 3.50 x10(3) [facility] Lymphocytes/100 WBC (Bld) 25.3 % 16.0 - 48.0 % [facility] MCH (RBC) [Entitic mass] 28.1 pg Low 28.5 - 32.9 pg [facility] MCHC (RBC) [Mass/Vol] 31.9 g/dL Low 33.0 - 36.0 g/dL [facility] MCV (RBC) [Entitic vol] 88.2 fL 80.0 - 99.0 fl [facility] MONO ABS 0.60 x10(3) 0.30 - 0.80 x10(3) [facility] Monocytes/100 WBC (Bld) 6.7 % 4.3 - 11.2 % [facility] Neutrophil Ab 5.70 x10(3) 1.40 - 6.50 x10(3) [facility] Neutrophils/100 WBC (Bld) 67.2 % 45.0 - 73.0 % [facility] Platelet Count 332 X10(3) 150 - 450 X10(3) [facility] Platelet mean volume (Bld) [Entitic vol] 8.1 fL 7.5 - 9.5 fl [facility] RBC 4.07 x10(6) 3.30 - 5.00 x10(6) [facility] WBC 8.5 x10(3) 4.5 - 10.0 x10(3) [facility] EMERGENCY DEPARTMENT REPORTo n 07-07-2022 [place]ER[place]ENCY [place] [address] HEALTH INFORMATION MANAGEMENT EMERGENCY DEPARTMENT REPORT Patient: SHAWNKAITLYN KEVIN J M.D. [id number] [id number] F Status: [facility] ED Date of Service: 07/07/22 ADDENDUM: This is an addendum to previous dictation. RESULTS OF WORKUP: CBC; white count of 8.5, hemoglobin 11.4, hematocrit of 34.9, platelet count of 332,000. Chemistry shows sodium 139, potassium 4.7, chloride 105 bicarb 20, BUN is 14, creatinine is 1.33, glucose is 99, calcium 9.5. LFTs within normal limits. Alk phos is mildly elevated at 117, lipase is 27. Urinalysis shows positive nitrites, 10-20 red cells, 40-50 white cells, occasional epithelial cells, 3+ bacteria. The patient at this point in time with pyuria, and bacteriuria and symptoms consistent with urinary tract infection. The patient is afebrile. I believe this to be a cystitis as oppose to pyelonephritis. Based upon the patient's allergies I did review the medication options with our ED pharmacist. Recommendation at this point, the patient started on Augmentin. Prescription for Augmentin 875 one p.o. b.i.d. x7 days. Return to the pharmacy of choice. Patient to follow up with primary provider, Dr. Dhaliwal. At this point, once again, I do not believe that the patient requires emergent abdominal imaging based upon her examination. I believe abdominal source for the patient's symptoms with the urinalysis and did complain of dysuria and urinary frequency. IMPRESSION: 1. Acute cystitis. 2. Abdominal pain, not otherwise specified. PLAN: Will be for discharge. Report#: Dict ID [id number] / Int ID [id number] 07/21/22 2216 DAVID MITCHELL M.D. cc: KENTRELL DHALIWAL II, M.D.; DAVID MITCHELL M.D. << Signature on File>> Reported By: DAVID MITCHELL M.D. Signed By: DAVID MITCHELL M.D. Tests performed at: [place] [address] Normal [facility] [place]ENCY [place] [address] HEALTH INFORMATION MANAGEMENT EMERGENCY DEPARTMENT REPORT Patient: KAITLYN ESCOBARDAVID Gimenez M.D. [id number] [age] F Status: [facility] ER ED Date of Service: 07/07/22 CHIEF COMPLAINT: Reported to be abdominal pain, urinary symptoms. HISTORY OF PRESENT ILLNESS: Patient is a 72-year-old white female who presents with nausea for the last week. She vomited once during the week. She states that she has had some decreased urination, some dysuria as well. She just finished her second course of nitrofurantoin for her UTI on either Sunday or Sunday. She has had some chills. Denies any fevers. Just feels hot and cold. She has had abdominal pain. She states that she has had previous bowel surgeries. REVIEW OF SYSTEMS: CONSTITUTIONAL: No fevers. Positive chills. HEENT: No rhinorrhea, congestion, or sore throat. CARDIOVASCULAR: No chest pain or palpitations. RESPIRATORY: No shortness of breath or cough. GASTROINTESTINAL: Positive for abdominal pain. Positive for nausea, vomiting x1. No diarrhea. No constipation. No hematemesis, melena, or hematochezia. GENITOURINARY: Positive for dysuria, decreased urination. All other systems are reviewed and negative. PAST HISTORY: PAST MEDICAL HISTORY: Depression, anxiety, hypothyroidism, DVT, chronic abdominal pain. SURGICAL HISTORY: Bowel resection, hysterectomy, cholecystectomy, left rotator cuff repair. SOCIAL HISTORY: No tobacco, ethanol, or drug use. MEDICATIONS: Reviewed, please see MRO. ALLERGIES: Multiple, please see list. Please review. FAMILY HISTORY: Reported to be none. PHYSICAL EXAMINATION: VITAL SIGNS: Blood pressure 142/85, temperature 98.5, pulse 80, respirations of 20, pulse oximetry 99%. GENERAL: Well-developed, well-nourished female, resting comfortably. SKIN: Warm, dry. No rashes or lesions. HEENT: Head is normocephalic and atraumatic. Ocular examination reveals pupils to be equal , round and reactive to light briskly. Examination of the oropharynx reveals mucous membranes to be moist. No erythema, exudate, or lesions. CARDIOVASCULAR: Examination reveals normal S1, S2. Regular rate and rhythm. No murmurs, gallops, or rubs. RESPIRATORY: Examination reveals breath sounds clear to auscultation bilaterally. No wheezes, rales, or rhonchi. ABDOMEN: Soft. Positive bowel sounds. There are no peritoneal signs. MUSCULOSKELETAL: Examination reveals no cyanosis or clubbing of the extremities. NEUROLOGIC: Examination reveals the patient to be alert and oriented x3. Cranial nerves 2 through 12 grossly intact. No focal deficits appreciated. MEDICAL DECISION MAKING: The patient has some chronic abdominal pain. Complained of urinary symptoms today as well. Initiated workup with CBC, CMP, lipase, urinalysis. I have low suspicion based upon the physical examination for intra-abdominal emergency. However I am concerned about the possibility of recurrent UTI based upon these symptoms. We will evaluate with urinalysis. Further management and disposition pending results of workup and clinical condition. Report#: Dict ID [id number] / Int ID [id number] 07/21/22 2216 DAVID MITCHELL M.D. cc: KENTRELL DHALIWAL II, M.D.; DAVID MITCHELL M.D. << Signature on File>> Reported By: DAVID MITCHELL M.D. Signed By: DAVID MITCHELL M.D. Tests performed at: [address] [address] Normal [facility] HEPATIC PANELon 07-07-2022 A:G RATIO 1.25 Normal 1.1-2.5 [facility] Comment on above: Performed By: #### L 100.0030, L100.0010, L100.0350 ####ML - [id number] [place] [address] Albumin [Mass/Vol] 3.9 g/dL Normal 3.5-5.2 [facility] Comment on above: Performed By: #### L 100.0030, L100.0010, L100.0350 ####ML - [facility] [id number] [place] [address] ALK. PHOS 117 U/L High 35-105 [facility] Comment on above: Performed By: #### L 100.0030, L100.0010, L100.0350 ####ML - [id number] [place] [address] ALT [Catalytic activity/Vol] 18 U/L Normal 5-33 [facility] Comment on above: Performed By: #### L 100.0030, L100.0010, L100.0350 ####ML - [id number] [place] [address] AST [Catalytic activity/Vol] 24 U/L Normal 5-32 [facility] Comment on above: Performed By: #### L 100.0030, L100.0010, L100.0350 ####ML - [id number] [place] [address] Bilirubin [Mass/Vol] 0.5 mg/dL Normal 0.2-1.2 [facility] Comment on above: Performed By: #### L 100.0030, L100.0010, L100.0350 ####ML - [id number] [place] [address] DIRECT BILIRUBI <0.2 Normal 0.0-0.3 [facility] Comment on above: Performed By: #### L 100.0030, L100.0010, L100.0350 ####ML - [id number] [place] [address] Globulin (S) [Mass/Vol] 3.1 g/dL Normal 1.5-4.5 [facility] Comment on above: Performed By: #### L 100.0030, L100.0010, L100.0350 ####ML - [id number] [place] [place] [address] Protein [Mass/Vol] 7.0 g/dL Normal 6.4-8.3 [facility] Comment on above: Performed By: #### L 100.0030, L100.0010, L100.0350 ####ML - [id number] [place] [address] Hepatic function 2000 panelo n 07-07-2022 Albumin [Mass/Vol] 3.9 g/dL 3.5 - 5.2 g/dL [facility] Albumin/Globulin [Mass ratio] 1.25 {ratio} 1.1 - 2.5 [facility] ALP [Catalytic activity/Vol] 117 U/L High 35 - 105 U/L [facility] ALT [Catalytic activity/Vol] 18 U/L 5 - 33 U[facility]L [facility] AST [Catalytic activity/Vol] 24 U/L 5 - 32 U/L [facility] Bilirubin [Mass/Vol] 0.5 mg/dL 0.2 - 1 .2 mg/dL [facility] Direct Bilirubin <0.2 0.0 - 0.3 mg/dL [facility] Globulin (S) [Mass/Vol] 3.1 g/dL 1.5 - 4.5 g/dL [facility] Protein [Mass/Vol] 7.0 g/dL 6.4 - 8.3 g/dL [facility] LIPASEon 07-07-2022 Lipase [Catalytic activity/Vol] 27 U/L Normal 13-60 [facility] Comment on above: Performed By: #### L 301.0100, L301.0120, L301.0105 #### ML - LABORATORY [address] [place] [address] 756[address] LIPASE BLDon 07-07-2022 Lipase [Catalytic activity/Vol] 27 U/L 13 - 60 U/L [facility] UA W/C&Son 07-07-2022 Bilirubin Ql (U) Negative Normal NEGATIVE [facility] Comment on above: Order Comment: Urine Specimen Source+ CLEAN CATCH Performed By: #### L 200.0010 #### ML - LABORATORY [address] [place] [address] 26098 Color (U) YELLOW Normal YELLOW [facility] Comment on above: Order Comment: Urine Specimen Source+ CLEAN CATCH Performed By: #### L 200.0010 #### ML [facility] [address] [place] [address] 36156 Glucose Ql (U) Negative Normal NEGATIVE [facility] Comment on above: Order Comment: Urine Specimen Source+ CLEAN CATCH Performed By: #### L 200.0010 #### ML - LABORATORY [address] [place] [address] 92007 Hemoglobin Ql (U) Negative Normal NEGATIVE [facility] Comment on above: Order Comment: Urine Specimen Source+ CLEAN CATCH Performed By: #### L 200.0010 #### ML - LABORATORY [address] [place] [address] 99780 Leukocyte esterase Test strip Ql (U) SMALL Normal NEGATIVE [facility] Comment on above: Order Comment: Urine Specimen Source+ CLEAN CATCH Performed By: #### L 200.0010 #### ML - LABORATORY [address] [place] [address] 56378 Nitrite Ql (U) Positive Normal NEGATIVE [facility] Comment on above: Order Comment: Urine Specimen Source+ CLEAN CATCH Performed By: #### L 200.0010 #### ML - LABORATORY [address] [place] [address] 70655 pH (U) 6.0 [pH] Normal 5.0-8.0 [facility] Comment on above: Order Comment: Urine Specimen Source+ CLEAN CATCH Performed By: #### L 200.0010 #### ML - LABORATORY [address] [place] [address] 79065 Protein Ql (U) Negative Normal NEGATIVE [facility] Comment on above: Order Comment: Urine Specimen Source+ CLEAN CATCH Performed By: #### L 200.0010 #### ML - LABORATORY [address] [place] [address] 65656 URINE APPEARANC CLEAR Normal CLEAR [facility] Comment on above: Order Comment: Urine Specimen Source+ CLEAN CATCH Performed By: #### L 200.0010 #### ML - LABORATORY [address] [place] [address] 11335 URINE KETONE Negative Normal NEGATIVE [facility] Comment on above: Order Comment: Urine Specimen Source+ CLEAN CATCH Performed By: #### L 200.0010 #### ML - LABORATORY [address] [place] [address] 67307 URINE SPECIFIC 1.015 Normal 1.001-1.035 [facility] Comment on above: Order Comment: Urine Specimen Source+ CLEAN CATCH Performed By: #### L 200.0010 #### ML - LABORATORY [address] [place] [address] 99361 URINE UROBILINO 0.2 EU/DL Normal 0.2-1.0 [facility] Comment on above: Order Comment: Urine Specimen Source+ CLEAN CATCH Performed By: #### L 200.0010 #### ML - [facility] LAB[facility]AT[facility] [address] [place] [address] 70725 URINE MICROSCOPon 07-07-2022 AMORPHOUS TR Normal NEGATIVE [facility] Comment on above: Order Comment: Urine Specimen Source+ CLEAN CATCH Performed By: #### L 200.0010 #### ML - [facility] [address] [place] [address] 65908 Mucus Ql (Urine sed) TR Normal NEGATIVE [facility] Comment on above: Order Comment: Urine Specimen Source+ CLEAN CATCH Performed By: #### L 200.0010 #### ML - [facility] [address] [place] [address] 12382 SQUAMOUS OCC Normal NEGATIVE [facility] Comment on above: Order Comment: Urine Specimen Source+ CLEAN CATCH Performed By: #### L 200.0010 #### ML - [facility] [address] [place] [address] 98841 URINE BACTERIA 3+ Normal NEGATIVE [facility] Comment on above: Order Comment: Urine Specimen Source+ CLEAN CATCH Performed By: #### L 200.0010 #### ML - [facility] [address] [place] [address] 41583 URINE RBC 10-20 Normal 0-2 [facility] Comment on above: Order Comment: Urine Specimen Source+ CLEAN CATCH Performed By: #### L 200.0010 #### ML - [facility] [address] [place] [address] 48470 URINE WBC 40-50 Normal 0-5 [facility] Comment on above: Order Comment: Urine Specimen Source+ CLEAN CATCH Performed By: #### L 200.0010 #### ML - [facility] [address] [place] [address] 35168 Urinalysis complete panel (U )on 07-07-2022 Amorphous Crystals TR NEGATIVE [facility] Appearance (U) CLEAR CLEAR [facility] Bacteria, Urine 3+ NEGATIVE [facility] Bilirubin, Urine Negative NEGATIVE [facility] Blood, Urine Negative NEGATIVE [facility] Color (U) YELLOW YELLOW [facility] Glucose Ql (U) Negative NEGATIVE MG/DL [facility] Ketones Ql (U) Negative NEGATIVE MG/DL [facility] Leukocytes SMALL NEGATIVE [facility] Nitrites Urine Positive NEGATIVE [facility] pH (U) 6.0 [pH] 5.0 - 8.0 [facility] Protein.monoclonal (U) [Mass/Vol] Negative NEGATIVE MG/DL [facility] RBC, Urine 10-20 0 - 2 [facility] Specific [place], Ur 1.015 1.001 - 1.035 [facility] Squamous Epithelial Cells OCC NEGATIVE [facility] Ur Mucous TR NEGATIVE [facility] Urobilinogen, Urine 0.2 EU/DL 0.2 - 1. 0 EU/DL [facility] WBC, Urine 40-50 0 - 5 [facility] Urine Cultureon 07-07-2022 Bacteria identified Cx Nom (U) CULTURE, URINE Mixed microbiota, including predominantly: CULTURE, URINE KLEBSIELLA (ENTEROBACTER) AEROGENES 10,000 -<50,000 CFU/ml Klebsiella (enterobacter) aerogenes ORGANISM: KLEBSIELLA (ENTEROBACTER) AEROGENES ANTIBIOTIC EBONY DILUTN EBONY INTERP Ampicillin Resistant Ampicillin/Sulbact Resistant Cefepime <=1 Susceptible Ciprofloxacin 0.5 Intermediate Ertapenem <=0.5 Susceptible Gentamicin <=1 Susceptible Meropenem <=0.25 Susceptible Nitrofurantoin 256 Resistant Piperacillin/Tazobac 8 Susceptible Tobramycin <=1 Susceptible Trimeth sulfameth <=20 Susceptible Urine, Midstream clean catch This test was developed and its performance characteristics determined by the [facility] [place] ([facility]). It has not been cleared or approved by the FDA. [facility] is regulated under CLIA as qualified to perform high-complexity testing. This test is used for clinical purposes. It should not be regarded as investigational or for research. SOURCE: Urine, Midstream clean catch Test Performed By: [facility] [address] [place] [address] Senior Cyber Security Analyst: Sven Wasserman III, M.D. See Below Normal [facility] CLINICAL RESUMEon 05-13-2022 CLINICAL RESUME [facility] [place] [place] [address] HEALTH INFORMATION MANAGEMENT CLINICAL RESUME Patient: SHAWN,DORA JD ANGELO M.D. [id number] [age] F Status: DIS IN NHCENTRAL 2054-A Date of Admission: 05/10/22 Date of Discharge: 05/12/22 CHIEF COMPLAINT: Syncope. DISCHARGE DIAGNOSES: 1. Syncope event may be due to polypharmacy. 2. Hypothyroidism. 3. Abdominal pain, chronic. 4. Nausea and vomiting, resolved. 5. Acute kidney injury, resolved. 6. History of DVT, on anticoagulation. 7. Anxiety. SUMMARY: The patient is a 71-year-old female with history of anxiety, hypothyroidism, and chronic kidney disease. She takes a lot of medications for chronic pain, and she has chronic abdominal pain. She presented to the emergency room with syncope episode and fall. Imaging study did not show any fractures. Initial cardiac workups were negative. She is admitted for further care. HOSPITAL COURSE: After admission, she complains of abdominal pain. Imaging study was unremarkable. She also has some episode of nausea and vomiting. There was questionable obstruction due to her history of abdominal surgery. NG was inserted, and a subsequent CT of the abdomen did not show any obstruction. She was evaluated by Surgery who recommended conservative therapy. Today, she is doing fairly well. Abdominal pain has resolved. NG was removed. She is able to tolerate diet. DISCHARGE PHYSICAL EXAMINATION: VITAL SIGNS: Temperature 98.7, pulse rate 88, respirations 16, blood pressure . NECK: Supple. No JVD. LUNGS: Clear. HEART: S1, S2, regular. ABDOMEN: Soft, nontender. EXTREMITIES: No edema. NEURO: Awake, alert, and oriented x3. No deficits. DISCHARGE LABORATORY DATA: Labs are unremarkable. Electrolytes are replaced. DISCHARGE CONDITION: Her condition is stable. DISPOSITION: She will be released to home. FOLLOWUP: Follow up with her PCP in 1 week. DISCHARGE MEDICATIONS: Her medications are adjusted. 1. Due to poly-pharmacy; she is discontinued on Zoloft, Levsin, Bentyl, Zanaflex, and Ambien. 2. She is continued on the other medications. 3. The patient should follow up with her PCP regarding adjustment of her home medications. DISCHARGE TIME: 35 minutes. Report#: Dict ID [id number] / Int ID [id number] 05/13/22 1042 ____ JD WAITE M.D. cc: JD WAITE M.D. << Signature on File>> Reported By: JD WAITE M.D. Signed By: JD WAITE M.D. Tests performed at: [address] [address] Normal [facility] CBCon 05-12-2022 BASO# 0.10 x10(3) Normal 0.00-0.10 [facility] Comment on above: Performed By: #### L 200.0010 #### ML - LABORATORY [address] [place] [address] 95417 Basophils/100 WBC (Bld) 0.8 % Normal 0.0-1.0 [facility] Comment on above: Performed By: #### L 200.0010 #### ML - LABORATORY [address] [place] [address] 80166 EOS# 0.10 x10(3) Normal 0.00-0.54 [facility] Comment on above: Performed By: #### L 200.0010 #### ML - LABORATORY [address] [place] [address] 12780 Eosinophils/100 WBC (Bld) 1.0 % Normal 0.5-4.9 [facility] Comment on above: Performed By: #### L 200.0010 #### ML - LABORATORY [address] [place] [address] 13780 Erythrocyte distribution width (RBC) [Ratio] 18.0 % High 12.5-15.7 [facility] Comment on above: Performed By: #### L 200.0010 #### ML - LABORATORY [address] [place] [address] 82554 Hematocrit (Bld) [Volume fraction] 29.6 % Low 36.0-48.0 [facility] Comment on above: Performed By: #### L 200.0010 #### ML - LABORATORY [address] [place] [address] 57971 Hemoglobin (Bld) [Mass/Vol] 9.7 g/dL Low 12.0-16.0 [facility] Comment on above: Performed By: #### L 200.0010 #### ML [facility] [address] [place] [address] 99945 LYMPH# 2.40 x10(3) Normal 1.00-3.50 [facility] Comment on above: Performed By: #### L 200.0010 #### ML [facility] [address] [place] [address] 85298 Lymphocytes/100 WBC (Bld) 22.5 % Normal 16.0-48.0 [facility] Comment on above: Performed By: #### L 200.0010 #### ML [facility] [address] [place] [address] 54947 MCH (RBC) [Entitic mass] 28.1 pg Low 28.5-32.9 [facility] Comment on above: Performed By: #### L 200.0010 #### ML [facility] [address] [place] [address] 55554 MCHC (RBC) [Mass/Vol] 32.8 g/dL Low 33.0-36.0 [facility] Comment on above: Performed By: #### L 200.0010 #### ML [facility] [address] [place] [address] 32833 MCV (RBC) [Entitic vol] 85.5 fL Normal 80.0-99.0 [facility] Comment on above: Performed By: #### L 200.0010 #### ML [facility] [address] [place] [address] 67394 MONO# 1.00 x10(3) High 0.30-0.80 [facility] Comment on above: Performed By: #### L 200.0010 #### ML [facility] [address] [place] [address] 22734 Monocytes/100 WBC (Bld) 9.0 % Normal 4.3-11.2 [facility] Comment on above: Performed By: #### L 200.0010 #### ML [facility] [address] [place] [address] 81179 NEUT# 7.20 x10(3) High 1.40-6.50 [facility] Comment on above: Performed By: #### L 200.0010 #### ML - LABORATORY [address] [place] [address] 01141 Neutrophils/100 WBC (Bld) 66.7 % Normal 45.0-73.0 [facility] Comment on above: Performed By: #### L 200.0010 #### ML - LABORATORY [address] [place] [address] 91710 Platelet mean volume (Bld) [Entitic vol] 8.6 fL Normal 7.5-9.5 [facility] Comment on above: Performed By: #### L 200.0010 #### ML - LABORATORY [address] [place] [address] 37596 PLT 299 X10(3) Normal 150-450 [facility] Comment on above: Performed By: #### L 200.0010 #### ML [facility] [address] [place] [address] 86453 RBC 3.46 x10(6) Normal 3.30-5.00 [facility] Comment on above: Performed By: #### L 200.0010 #### ML - LABORATORY [address] [place] [address] 24046 WBC 10.8 x10(3) High 4.5-10.0 [facility] Comment on above: Performed By: #### L 200.0010 #### ML [facility] [address] [place] [address] 04351 BASO# 0.10 x10(3) Normal 0.00-0.10 [facility] Comment on above: Performed By: #### L 200.0010 #### ML - LABORATORY [address] [place] [address] 75063 Basophils/100 WBC (Bld) 0.5 % Normal 0.0-1.0 [facility] Comment on above: Performed By: #### L 200.0010 #### ML [facility] [address] [place] [address] 16123 EOS# 0.10 x10(3) Normal 0.00-0.54 [facility] Comment on above: Performed By: #### L 200.0010 #### ML - LABORATORY [address] [place] [address] 55616 Eosinophils/100 WBC (Bld) 1.0 % Normal 0.5-4.9 [facility] Comment on above: Performed By: #### L 200.0010 #### [facility] [address] [place] [address] 15587 Erythrocyte distribution width (RBC) [Ratio] 18.1 % High 12.5-15.7 [facility] Comment on above: Performed By: #### L 200.0010 #### ML [facility] [address] [place] [address] 61218 Hematocrit (Bld) [Volume fraction] 27.3 % Low 36.0-48.0 [facility] Comment on above: Performed By: #### L 200.0010 #### ML [facility] [address] [place] [address] 20656 Hemoglobin (Bld) [Mass/Vol] 9.0 g/dL Low 12.0-16.0 [facility] Comment on above: Performed By: #### L 200.0010 #### ML [facility] [address] [place] [address] 72617 LYMPH# 2.50 x10(3) Normal 1.00-3.50 [facility] Comment on above: Performed By: #### L 200.0010 #### ML [facility] [address] [place] [address] 73054 Lymphocytes/100 WBC (Bld) 21.5 % Normal 16.0-48.0 [facility] Comment on above: Performed By: #### L 200.0010 #### ML [facility] [address] [place] [address] 06084 MCH (RBC) [Entitic mass] 28.2 pg Low 28.5-32.9 [facility] Comment on above: Performed By: #### L 200.0010 #### [facility] [address] [place] [address] 57779 MCHC (RBC) [Mass/Vol] 33.1 g/dL Normal 33.0-36.0 [facility] Comment on above: Performed By: #### L 200.0010 #### ML - LABORATORY [address] [place] [address] 42458 MCV (RBC) [Entitic vol] 85.2 fL Normal 80.0-99.0 [facility] Comment on above: Performed By: #### L 200.0010 #### [facility] [address] [place] [address] 64867 MONO# 1.30 x10(3) High 0.30-0.80 [facility] Comment on above: Performed By: #### L 200.0010 #### [facility] [address] [place] [address] 90930 Monocytes/100 WBC (Bld) 11.1 % Normal 4.3-11.2 [facility] Comment on above: Performed By: #### L 200.0010 #### [facility] [address] [place] [address] 38624 NEUT# 7.60 x10(3) High 1.40-6.50 [facility] Comment on above: Performed By: #### L 200.0010 #### [facility] [address] [place] [address] 91738 Neutrophils/100 WBC (Bld) 65.9 % Normal 45.0-73.0 [facility] Comment on above: Performed By: #### L 200.0010 #### [facility] [address] [place] [address] 05599 Platelet mean volume (Bld) [Entitic vol] 8.6 fL Normal 7.5-9.5 [facility] Comment on above: Performed By: #### L 200.0010 #### [facility] [address] [place] [address] 63815 PLT 293 X10(3) Normal 150-450 [facility] Comment on above: Performed By: #### L 200.0010 #### [facility] [address] [place] [address] 24850 RBC 3.21 x10(6) Low 3.30-5.00 [facility] Comment on above: Performed By: #### L 200.0010 #### [facility] [address] [place] [address] 73715 WBC 11.6 x10(3) High 4.5-10.0 [facility] Comment on above: Performed By: #### L 200.0010 #### ML - [facility] [address] [place] [address] 79545 PROGRESS NOTEon 05-12-2022 PROGRESS NOTE [facility] [address] HEALTH INFORMATION MANAGEMENT PROGRESS NOTE Patient: KAITLYN ESCOBAR I KENTRELL PACHECO M.D. [id number] [age] F Status: DIS IN SDCENTRAL 2054- DATE OF PROGRESS NOTE: 05/12/2022 TIME: 10 a.mFamilia Pacheco doing the note. SUBJECTIVE: 71-year-old white female, no nausea, vomiting, pain better, moving her bowels, tolerating liquid diet. OBJECTIVE: VITAL SIGNS: Stable. Afebrile, white count coming down. ABDOMEN: Soft, nontender. ASSESSMENT: 71-year-old white female with chronic abdominal pain, nausea and vomiting, but no evidence of any obstruction. PLAN: Advance diet as tolerated. We will sign off. Available as needed. Report#: Dict ID [id number] / Int ID [id number] KENTRELL PACHECO M.D. cc: KENTRELL PACHECO M.D. << Signature on File>> Reported By: KENTRELL PACHECO M.D. Signed By: KENTRELL PACHECO M.D. Tests performed at: [address] [address] Normal [facility] RENALon 05-12-2022 Albumin [Mass/Vol] 3.2 g/dL Low 3.5-5.2 [facility] Comment on above: Performed By: #### L 301.0100, L301.0120, L301.0105 #### [facility] - [facility] [address] [place] [address] 76269 Anion gap [Moles/Vol] 13.1 mmol/L Low 15-22 [facility] Comment on above: Performed By: #### L 301.0100, L301.0120, L301.0105 #### - LABORATORY [address] [place] [address] Calcium [Mass/Vol] 8.5 mg/dL Low 8.8-10.2 [facility] Comment on above: Performed By: #### L 301.0100, L301.0120, L301.0105 #### - LABORATORY [address] [place] [address] 22445 Chloride [Moles/Vol] 110 mmol/L High 98-107 [facility] Comment on above: Performed By: #### L 301.0100, L301.0120, L301.0105 #### - LABORATORY [address] [place] [address] 39103 CO2 [Moles/Vol] 22 mmol/L Normal 22-29 [facility] Comment on above: Performed By: #### L 301.0100, L301.0120, L301.0105 #### - LABORATORY [address] [place] [address] 91996 Creatinine [Mass/Vol] 0.80 mg/dL Normal 0.50-0.90 [facility] Comment on above: Performed By: #### L 301.0100, L301.0120, L301.0105 #### - LABORATORY [address] [place] [address] 15092 eGFR if AFR ELOISA > 60 ml/min/1.73m2 Normal [facility] Comment on above: Result Comment: eGFR >= 60 Indicates normal kidney function. * eGFR IS AN ESTIMATE * (AFR ELOISA = ) (non-AFR AM = NON-) MDRD calculation used in the eGFR should not be used to dose medications. For further limitations of the eGFR please refer to the Physician Website or the National Kidney Disease Education Program website (www.nkdep.nih.gov). Performed By: #### L 301.0100, L301.0120, L301.0105 #### ML - LABORATORY [address] [place] [address] 11544 eGFR nonAFR Eloisa > 60 ml/Min/1.73m2 Normal U [facility] Comment on above: Performed By: #### L 301.0100, L301.0120, L301.0105 #### ML - LABORATORY [address] [place] [address] 09349 Glucose [Mass/Vol] 83 mg/dL Normal 82-115 [facility] Comment on above: Performed By: #### L 301.0100, L301.0120, L301.0105 #### ML - LABORATORY [address] [place] [address] 85127 Phosphate [Mass/Vol] 1.8 mg/dL Low 2.5-4.5 [facility] Comment on above: Performed By: #### L 301.0100, L301.0120, L301.0105 #### ML - LABORATORY [address] [place] [address] 06730 Potassium [Moles/Vol] 3.1 mmol/L Low 3.5-5.0 [facility] Comment on above: Performed By: #### L 301.0100, L301.0120, L301.0105 #### ML - LABORATORY [address] [place] [address] 57146 Sodium [Moles/Vol] 142 mmol/L Normal 135-145 [facility] Comment on above: Performed By: #### L 301.0100, L301.0120, L301.0105 #### ML - LABORATORY [address] [place] [address] 60245 Urea nitrogen [Mass/Vol] 6 mg/dL Low 8-23 [facility] Comment on above: Performed By: #### L 301.0100, L301.0120, L301.0105 #### ML - LABORATORY [address] [place] [address]118 [facility] 05-11-2022 Anion gap [Moles/Vol] 16.1 mmol/L Normal 15-22 [facility] Comment on above: Performed By: #### L 301.0100, L301.0120, L301.0105 #### - LABORATORY [address] [place] [address] 05698 Calcium [Mass/Vol] 8.8 mg/dL Normal 8.8-10.2 [facility] Comment on above: Performed By: #### L 301.0100, L301.0120, L301.0105 #### - LABORATORY [address] [place] [address] 89580 Chloride [Moles/Vol] 105 mmol/L Normal 98-107 [facility] Comment on above: Performed By: #### L 301.0100, L301.0120, L301.0105 #### - LABORATORY [address] [place] [address] CO2 [Moles/Vol] 21 mmol/L Low 22-29 [facility] Comment on above: Performed By: #### L 301.0100, L301.0120, L301.0105 #### - LABORATORY [address] [place] [address] 59426 Creatinine [Mass/Vol] 0.83 mg/dL Normal 0.50-0.90 [facility] Comment on above: Performed By: #### L 301.0100, L301.0120, L301.0105 #### - LABORATORY [address] [place] [address] 25465 eGFR if AFR ELOISA > 60 ml/min/1.73m2 Normal [facility] Comment on above: Result Comment: eGFR >= 60 Indicates normal kidney function. * eGFR IS AN ESTIMATE * (AFR ELOISA = ) (non-AFR AM = NON-) MDRD calculation used in the eGFR should not be used to dose medications. For further limitations of the eGFR please refer to the Physician Website or the National Kidney Disease Education Program website (www.nkdep.nih.gov). Performed By: #### L 301.0100, L301.0120, L301.0105 #### ML - LABORATORY [address] [place] [address] 65132 eGFR nonAFR Eloisa > 60 ml/Min/1.73m2 Normal [facility] Comment on above: Performed By: #### L 301.0100, L301.0120, L301.0105 #### ML - LABORATORY [address] [place] [address] 69772 Glucose [Mass/Vol] 94 mg/dL Normal 82-115 [facility] Comment on above: Performed By: #### L 301.0100, L301.0120, L301.0105 #### - LABORATORY [address] [place] [address] 11455 Potassium [Moles/Vol] 4.1 mmol/L Normal 3.5-5.0 [facility] Comment on above: Performed By: #### L 301.0100, L301.0120, L301.0105 #### - LABORATORY [address] [place] [address] 86162 Sodium [Moles/Vol] 138 mmol/L Normal 135-145 [facility] Comment on above: Performed By: #### L 301.0100, L301.0120, L301.0105 #### - LABORATORY [address] [place] [address] 63386 Urea nitrogen [Mass/Vol] 6 mg/dL Low 8-23 [facility] Comment on above: Performed By: #### L 301.0100, L301.0120, L301.0105 #### ML - LABORATORY [address] [place] [address] 53579 CBCon 05-11-2022 BASO# 0.10 x10(3) Normal 0.00-0.10 [facility] Comment on above: Performed By: #### L 301.0100, L301.0120, L301.0105 #### - LABORATORY [address] [place] [address] 64626 Basophils/100 WBC (Bld) 0.9 % Normal 0.0-1.0 [facility] Comment on above: Performed By: #### L 301.0100, L301.0120, L301.0105 #### - LABORATORY [address] [place] [address] 72652 EOS# 0.00 x10(3) Normal 0.00-0.54 [facility] Comment on above: Performed By: #### L 301.0100, L301.0120, L301.0105 #### - LABORATORY [address] [place] [address] 13018 Eosinophils/100 WBC (Bld) 0.1 % Low 0.5-4.9 [facility] Comment on above: Performed By: #### L 301.0100, L301.0120, L301.0105 #### [facility] LABORAT[facility] [address] [place] [address] 72318 Erythrocyte distribution width (RBC) [Ratio] 18.5 % High 12.5-15.7 [facility] Comment on above: Performed By: #### L 301.0100, L301.0120, L301.0105 #### [facility] LAB[facility] [address] [place] [address] 03285 Hematocrit (Bld) [Volume fraction] 31.0 % Low 36.0-48.0 [facility] Comment on above: Performed By: #### L 301.0100, L301.0120, L301.0105 #### - LABORATORY [address] [place] [address] 32303 Hemoglobin (Bld) [Mass/Vol] 10.2 g/dL Low 12.0-16.0 [facility] Comment on above: Performed By: #### L 301.0100, L301.0120, L301.0105 #### [facility]OR[facility] [address] [place] [address] 84643 LYMPH# 2.30 x10(3) Normal 1.00-3.50 [facility] Comment on above: Performed By: #### L 301.0100, L301.0120, L301.0105 #### - LABORATORY [address] [place] [address] 14738 Lymphocytes/100 WBC (Bld) 17.0 % Normal 16.0-48.0 [facility] Comment on above: Performed By: #### L 301.0100, L301.0120, L301.0105 #### - LABORATORY [address] [place] [address] 50329 MCH (RBC) [Entitic mass] 28.3 pg Low 28.5-32.9 [facility] Comment on above: Performed By: #### L 301.0100, L301.0120, L301.0105 #### - LABORATORY [address] [place] [address] 79136 MCHC (RBC) [Mass/Vol] 33.0 g/dL Normal 33.0-36.0 [facility] Comment on above: Performed By: #### L 301.0100, L301.0120, L301.0105 #### - LABORATORY [address] [place] [address] 24394 MCV (RBC) [Entitic vol] 85.8 fL Normal 80.0-99.0 [facility] Comment on above: Performed By: #### L 301.0100, L301.0120, L301.0105 #### [facility] [address] [place] [address] 13107 MONO# 1.10 x10(3) High 0.30-0.80 [facility] Comment on above: Performed By: #### L 301.0100, L301.0120, L301.0105 #### [facility] [address] [place] [address] 19871 Monocytes/100 WBC (Bld) 7.8 % Normal 4.3-11.2 [facility] Comment on above: Performed By: #### L 301.0100, L301.0120, L301.0105 #### [facility] LAB[facility] [address] [place] [address] 57540 NEUT# 10.00 x10(3) High 1.40-6.50 [facility] Comment on above: Performed By: #### L 301.0100, L301.0120, L301.0105 #### ML - LABORATORY [address] [place] [address] Neutrophils/100 WBC (Bld) 74.2 % High 45.0-73.0 [facility] Comment on above: Performed By: #### L 301.0100, L301.0120, L301.0105 #### [facility] - LABORATORY [address] [place] [address] 44477 Platelet mean volume (Bld) [Entitic vol] 8.5 fL Normal 7.5-9.5 [facility] Comment on above: Performed By: #### L 301.0100, L301.0120, L301.0105 #### ML - LABORATORY [address] [place] [address] 05666 PLT 337 X10(3) Normal 150-450 [facility] Comment on above: Performed By: #### L 301.0100, L301.0120, L301.0105 #### ML - LABORATORY [address] [place] [address] [place] [address] RBC 3.61 x10(6) Normal 3.30-5.00 [facility] Comment on above: Performed By: #### L 301.0100, L301.0120, L301.0105 #### ML - LABORATORY [address] [place] [address] [place] [address] WBC 13.5 x10(3) High 4.5-10.0 [facility] Comment on above: Performed By: #### L 301.0100, L301.0120, L301.0105 #### ML - LABORATORY [address] [place] [address] BASO# 0.00 x10(3) Normal 0.00-0.10 [facility] Comment on above: Performed By: #### L 200.0010 #### ML - LABORATORY [address] [place] [address] [place] [address] Basophils/100 WBC (Bld) 0.3 % Normal 0.0-1.0 [facility] Comment on above: Performed By: #### L 200.0010 #### ML - LABORATORY [address] [place] [address] 20337 EOS# 0.00 x10(3) Normal 0.00-0.54 [facility] Comment on above: Performed By: #### L 200.0010 #### ML - LABORATORY [address] [place] [address] 51390 Eosinophils/100 WBC (Bld) 0.2 % Low 0.5-4.9 [facility] Comment on above: Performed By: #### L 200.0010 #### ML - LABORATORY [address] [place] [address] 01246 Erythrocyte distribution width (RBC) [Ratio] 18.6 % High 12.5-15.7 [facility] Comment on above: Performed By: #### L 200.0010 #### ML [facility] [address] [place] [address] 90366 Hematocrit (Bld) [Volume fraction] 29.0 % Low 36.0-48.0 [facility] Comment on above: Performed By: #### L 200.0010 #### ML [facility] [address] [place] [address] 09297 Hemoglobin (Bld) [Mass/Vol] 9.7 g/dL Low 12.0-16.0 [facility] Comment on above: Performed By: #### L 200.0010 #### ML - LABORATORY [address] [place] [address] 85778 LYMPH# 2.30 x10(3) Normal 1.00-3.50 [facility] Comment on above: Performed By: #### L 200.0010 #### ML [facility] [address] [place] [address] 49150 Lymphocytes/100 WBC (Bld) 16.8 % Normal 16.0-48.0 [facility] Comment on above: Performed By: #### L 200.0010 #### ML - LABORATORY [address] [place] [address] 38673 MCH (RBC) [Entitic mass] 28.5 pg Normal 28.5-32.9 [facility] Comment on above: Performed By: #### L 200.0010 #### [facility] [address] [place] [address] 82037 MCHC (RBC) [Mass/Vol] 33.7 g/dL Normal 33.0-36.0 [facility] Comment on above: Performed By: #### L 200.0010 #### [facility] [address] [place] [address] 83417 MCV (RBC) [Entitic vol] 84.8 fL Normal 80.0-99.0 [facility] Comment on above: Performed By: #### L 200.0010 #### [facility] [address] [place] [address] 91445 MONO# 1.40 x10(3) High 0.30-0.80 [facility] Comment on above: Performed By: #### L 200.0010 #### [facility] [address] [place] [address] 17338 Monocytes/100 WBC (Bld) 10.0 % Normal 4.3-11.2 [facility] Comment on above: Performed By: #### L 200.0010 #### [facility] [address] [place] [address] 18929 NEUT# 9.80 x10(3) High 1.40-6.50 [facility] Comment on above: Performed By: #### L 200.0010 #### [facility] [address] [place] [address] 55983 Neutrophils/100 WBC (Bld) 72.7 % Normal 45.0-73.0 [facility] Comment on above: Performed By: #### L 200.0010 #### [facility] [address] [place] [address] 76747 Platelet mean volume (Bld) [Entitic vol] 8.2 fL Normal 7.5-9.5 [facility] Comment on above: Performed By: #### L 200.0010 #### [facility] [address] [place] [address] 39402 PLT 322 X10(3) Normal 150-450 [facility] Comment on above: Performed By: #### L 200.0010 #### [facility] [address] [place] [address] RBC 3.42 x10(6) Normal 3.30-5.00 [facility] Comment on above: Performed By: #### L 200.0010 #### [facility] [address] [place] [address] WBC 13.5 x10(3) High 4.5-10.0 [facility] Comment on above: Performed By: #### L 200.0010 #### ML - LABORATORY [address] [place] [address] PROGRESS NOTEon 05-11-2022 PROGRESS NOTE [facility] [place] [address] HEALTH INFORMATION MANAGEMENT PROGRESS NOTE Patient: KAITLYN ESCOBAR I KENTRELL PACHECO M.D. [id number] [age] F Status: DIS IN [facility] 2054- DATE OF PROGRESS NOTE: 05/11/2022 TIME: 9 a.mFamilia Pacheco doing the note. SUBJECTIVE: 71-year-old white female was complaining of nausea, vomiting, pain yesterday. She did pass gas yesterday. Feels a little better today and her NG tube is out. OBJECTIVE: VITAL SIGNS: Stable. Afebrile. ABDOMEN: Soft, nontender. Blood work looks good. White count is actually coming down and CAT scan of the abdomen is negative. ASSESSMENT: 71-year-old white female with chronic abdominal pain with nausea and vomiting at times, but no evidence of any mechanical obstruction. PLAN: Continued observation, NG is out. I agree liquids as tolerated. Again, just a chronic condition. No obvious surgical indications at this time. We will check back again tomorrow , but really nothing to add surgically. Discussed with patient and Dr. Waite yesterday and today with the patient. If she would get an obstruction she would have to go probably to the [facility] [place]. 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 We will check back tomorrow. Report#: Dict ID [id number] / Int ID [id number] KENTRELL PACHECO M.D. cc: KENTRELL PACHECO M.D. << Signature on File>> Reported By: KENTRELL PACHECO M.D. Signed By: KENTRELL PACHECO M.D. Tests performed at: [address] [address] Normal [facility] RENALon 05-11-2022 Albumin [Mass/Vol] 3.6 g/dL Normal 3.5-5.2 [facility] Comment on above: Performed By: #### L 301.0100, L301.0120, L301.0105 #### ML - LABORATORY [address] [place] [address] 10586 Phosphate [Mass/Vol] 3.1 mg/dL Normal 2.5-4.5 [facility] Comment on above: Performed By: #### L 301.0100, L301.0120, L301.0105 #### ML - LABORATORY [address] [place] [address] 60651 ABDOMEN (KUB)1 VIEWon 2021 ABDOMEN (KUB)[address] [address] Name: SHAWNKAITLYN Franny Phys: JD WAITE M.D. : [birth year] Age: 71 Sex: F Acct: [id number] Loc: [facility] Exam Date: 05/10/22 Status: ADM [facility] No.: Unit Number: [id number] Exam # Type/Exam [id number] RAD / ABDOMEN (KUB)1 VIEW EXAMINATION: Exam Title:ONE SUPINE XRAY VIEW(S) OF THE ABDOMEN Completed Time: 05/10/2022 12:23 pm Procedure Description:ABDOMEN 1 VIEW/KUB COMPARISON: May 08, 2022 x-ray abdomen HISTORY: ORDERING SYSTEM PROVIDED HISTORY: TECHNOLOGIST PROVIDED HISTORY: Reason for Exam: NG TUBE PLACEMENT FINDINGS: Although labeled x-ray abdomen KUB, this is predominantly 8 chest image including the upper abdomen. NG tube tip located approximately 5 cm beyond GE junction, superimposing the gastric fundus. Heart size normal. Pulmonary vasculature normal appearance. Minimal lingular scar/atelectasis. External chest leads. At included level, normal bowel gas pattern. Osseous demineralization. IMPRESSION: 1. NG tube tip located is approximately 5 cm beyond GE junction. Electronically signed By Vladimir Garcia DO 05/10/2022 12:35:45 PM EST Workstation ID : [id number] < > Reported By: VLADIMIR GARCIA D.O. Signed In Fluency By: VLADIMIR GARCIA D.O. << Signature on File>> Reported By: VLADIMIR GARCIA D.O. Signed By: VLADIMIR GARCIA D.O. Tests performed at: [address] [address] Normal [facility] CBCon 05-10-2022 BASO# 0.10 x10(3) Normal 0.00-0.10 [facility] Comment on above: Performed By: #### L 301.0100, L301.0120, L301.0105 #### ML - LABORATORY [address] [place] [address] 97106 Basophils/100 WBC (Bld) 0.6 % Normal 0.0-1.0 [facility] Comment on above: Performed By: #### L 301.0100, L301.0120, L301.0105 #### ML [facility] [address] [place] [address] 72276 EOS# 0.00 x10(3) Normal 0.00-0.54 [facility] Comment on above: Performed By: #### L 301.0100, L301.0120, L301.0105 #### [facility] [address] [place] [address] 12012 Eosinophils/100 WBC (Bld) 0.1 % Low 0.5-4.9 [facility] Comment on above: Performed By: #### L 301.0100, L301.0120, L301.0105 #### [facility] [address] [place] [address] 73294 Erythrocyte distribution width (RBC) [Ratio] 18.3 % High 12.5-15.7 [facility] Comment on above: Performed By: #### L 301.0100, L301.0120, L301.0105 #### [facility] [address] [place] [address] 58331 Hematocrit (Bld) [Volume fraction] 30.8 % Low 36.0-48.0 [facility] Comment on above: Performed By: #### L 301.0100, L301.0120, L301.0105 #### - LABORATORY [address] [place] [address] 11678 Hemoglobin (Bld) [Mass/Vol] 10.1 g/dL Low 12.0-16.0 [facility] Comment on above: Performed By: #### L 301.0100, L301.0120, L301.0105 #### [facility] [address] [place] [address] 54126 LYMPH# 1.10 x10(3) Normal 1.00-3.50 [facility] Comment on above: Performed By: #### L 301.0100, L301.0120, L301.0105 #### [facility] [address] [place] [address] 67018 Lymphocytes/100 WBC (Bld) 8.9 % Low 16.0-48.0 [facility] Comment on above: Performed By: #### L 301.0100, L301.0120, L301.0105 #### [facility] [address] [place] [address] 45324 MCH (RBC) [Entitic mass] 27.6 pg Low 28.5-32.9 [facility] Comment on above: Performed By: #### L 301.0100, L301.0120, L301.0105 #### [facility] [address] [place] [address] 28966 MCHC (RBC) [Mass/Vol] 32.7 g/dL Low 33.0-36.0 [facility] Comment on above: Performed By: #### L 301.0100, L301.0120, L301.0105 #### [facility] [address] [place] [address] 31725 MCV (RBC) [Entitic vol] 84.5 fL Normal 80.0-99.0 [facility] Comment on above: Performed By: #### L 301.0100, L301.0120, L301.0105 #### - LABORATORY [address] [place] [address] 61829 MONO# 0.50 x10(3) Normal 0.30-0.80 [facility] Comment on above: Performed By: #### L 301.0100, L301.0120, L301.0105 #### [facility] [address] [place] [address] 54908 Monocytes/100 WBC (Bld) 3.7 % Low 4.3-11.2 [facility] Comment on above: Performed By: #### L 301.0100, L301.0120, L301.0105 #### [facility] [address] [place] [address] 68905 NEUT# 10.90 x10(3) High 1.40-6.50 [facility] Comment on above: Performed By: #### L 301.0100, L301.0120, L301.0105 #### [facility] [address] [place] [address] 54490 Neutrophils/100 WBC (Bld) 86.7 % High 45.0-73.0 [facility] Comment on above: Performed By: #### L 301.0100, L301.0120, L301.0105 #### - LABORATORY [address] [place] [address] 37248 Platelet mean volume (Bld) [Entitic vol] 8.6 fL Normal 7.5-9.5 [facility] Comment on above: Performed By: #### L 301.0100, L301.0120, L301.0105 #### [facility] [address] [place] [address] 53055 PLT 333 X10(3) Normal 150-450 [facility] Comment on above: Performed By: #### L 301.0100, L301.0120, L301.0105 #### - LABORATORY [address] [place] [address] 87357 RBC 3.65 x10(6) Normal 3.30-5.00 [facility] Comment on above: Performed By: #### L 301.0100, L301.0120, L301.0105 #### [facility] [address] [place] [address] 92155 WBC 12.5 x10(3) High 4.5-10.0 [facility] Comment on above: Performed By: #### L 301.0100, L301.0120, L301.0105 #### [facility] [address] [place] [address] 47737 CREATon 05-10-2022 Creatinine [Mass/Vol] 0.89 mg/dL Normal 0.50-0.90 [facility] Comment on above: Performed By: #### L 200.0010 #### [facility] [address] [place] [address] 21930 eGFR if AFR ELOISA > 60 ml/min/1.73m2 Normal [facility] Comment on above: Result Comment: eGFR >= 60 Indicates normal kidney function. * eGFR IS AN ESTIMATE * (AFR ELOISA = ) (non-AFR AM = NON-) MDRD calculation used in the eGFR should not be used to dose medications. For further limitations of the eGFR please refer to the Physician Website or the National Kidney Disease Education Program website (www.nkdep.nih.gov). Performed By: #### L 200.0010 #### ML [facility] [address] [place] [address] 38964 eGFR nonAFR Eloisa > 60 ml/Min/1.73m2 Normal [facility] Comment on above: Performed By: #### L 200.0010 #### [facility] [address] [place] [address] ABD W CONTRASTon 05-10-20 CT ABD W CONTRAST [address] [address] Name: KAITLYN ESCOBAR I Phys: JD WAITE M.D. : [birth year] Age: 71 Sex: F Acct: [id number] Loc: [facility] Exam Date: 05/10/22 Status: ADM [facility] No.: Unit Number: [id number] Exam # Type/Exam [id number] CT / CT ABD W CONTRAST EXAMINATION: CT ABDOMEN WITH CONTRAST05/10/2022 1:[address] ABDOMEN WITH CONTRAST EXAM DESCRIPTION: TECHNIQUE: CT of the abdomen was performed with the administration of intravenous contrast. Multiplanar reformatted images are provided for review. Automated exposure control, iterative reconstruction, and/or weight based adjustment of the mA/kV was utilized to reduce the radiation dose to as low as reasonably achievable. COMPARISON: Abdomen, May 10, 2022 HISTORY: ORDERING SYSTEM PROVIDED HISTORY: TECHNOLOGIST PROVIDED HISTORY: Reason for Exam: vomiting FINDINGS: The size, density, and morphology of the liver, spleen, adrenals, kidneys, pancreas and unopacified loops of bowel are unremarkable. Subcentimeter cyst within the liver. The opacified aorta demonstrates normal size and morphology without aneurysmal dilation or dissection. Prior bowel resection noted within the mid central pelvis with reanastomosis. There are no enlarged lymph nodes by pathologic size criteria. The osseous structures are without gross lytic or sclerotic lesion. The lung bases are clear. Orogastric tube is placed within the stomach. IMPRESSION: No acute intra-abdominal pathology. Incidental findings described above. Electronically signed By Edmundo Diaz MD 05/10/2022 5:07:33 PM EST Workstation ID : [id number] < > Reported By: EDMUNDO DIAZ M.D. Signed In Fluency By: EDMUNDO DIAZ M.D. << Signature on File>> Reported By: EDMUNDO DIAZ M.D. Signed By: EDMUNDO DIAZ M.D. Tests performed at: [address] [address] Normal [facility] GLUCOSE FSon 05-10-2022 Glucose [Mass/Vol] 135 mg/dL High 70-110 [facility] Comment on above: Performed By: #### L 200.0010 #### [facility] [address] [place] [address] PROGRESS NOTEon 05-10-2022 PROGRESS NOTE [facility] [place] [address] HEALTH INFORMATION MANAGEMENT PROGRESS NOTE Patient: KAITLYN ESCOBAR I KENTRELL PACHECO M.D. [id number] [age] F Status: DIS IN [facility] 2054-A DATE OF PROGRESS NOTE: 05/10/2022 SUBJECTIVE: 71-year-old white female. I did a consult on her yesterday, signed off because she really just had her chronic abdominal pain, passing gas, not throwing up, tolerating p.o. She had had a bowel obstruction surgery within the last year. She has essentially a frozen abdomen, was a difficult time. She has been recommended anymore bowel surgeries having done at the [facility] and she is well aware of that. I saw her yesterday and she was doing fine. We signed off, but apparently today had some nausea and vomiting, still passing gas, complaining of her chronic pain. OBJECTIVE: VITAL SIGNS: Stable. Afebrile. ABDOMEN: Soft. No peritoneal signs. X-rays and labs are pending right now. ASSESSMENT: Nausea and vomiting and her chronic pain. She could be starting on another bowel obstructions as I spoke with her and I have Dr. Waite on page, if it gets worse, we really cannot do any surgery here. She would do best at the [facility]. She has a high mortality -morbidity with her anatomical situation. She understands that. We will see what her labs show today. Report#: Dict ID [id number] / Int ID [id number] KENTRELL PACHECO M.D. cc: KENTRELL PACHECO M.D. << Signature on File>> Reported By: KENTRELL PACHECO M.D. Signed By: KENTRELL PACHECO M.D. Tests performed at: [address] [address] Normal [facility] URINALYSISon 05-10-2022 Bilirubin Ql (U) Negative Normal NEGATIVE [facility] Comment on above: Performed By: #### L 301.0100, L301.0120, L301.0105 #### [facility] - LAB[facility]ATORY [address] [place] [address] 16794 Color (U) YELLOW Normal YELLOW [facility] Comment on above: Performed By: #### L 301.0100, L301.0120, L301.0105 #### [facility] [address] [place] [address] 80520 Glucose Ql (U) Negative Normal NEGATIVE [facility] Comment on above: Performed By: #### L 301.0100, L301.0120, L301.0105 #### [facility] [address] [place] [address] 56208 Hemoglobin Ql (U) MODERATE Normal NEGATIVE [facility] Comment on above: Performed By: #### L 301.0100, L301.0120, L301.0105 #### [facility] [address] [place] [address] 26899 Leukocyte esterase Test strip Ql (U) Negative Normal NEGATIVE [facility] Comment on above: Performed By: #### L 301.0100, L301.0120, L301.0105 #### [facility] [address] [place] [address] 53712 Nitrite Ql (U) Negative Normal NEGATIVE [facility] Comment on above: Performed By: #### L 301.0100, L301.0120, L301.0105 #### [facility] [address] [place] [address] 38745 pH (U) 7.0 [pH] Normal 5.0-8.0 [facility] Comment on above: Performed By: #### L 301.0100, L301.0120, L301.0105 #### [facility] [address] [place] [address] 40345 Protein Ql (U) Negative Normal NEGATIVE [facility] Comment on above: Performed By: #### L 301.0100, L301.0120, L301.0105 #### [facility] [address] [place] [address] 55610 URINE APPEARANC CLEAR Normal CLEAR [facility] Comment on above: Performed By: #### L 301.0100, L301.0120, L301.0105 #### [facility] [address] [place] [address] 46754 URINE KETONE 15 MG/DL Normal NEGATIVE [facility] Comment on above: Performed By: #### L 301.0100, L301.0120, L301.0105 #### [facility] [address] [place] [address] 47883 URINE SPECIFIC 1.020 Normal 1.001-1.035 [facility] Comment on above: Performed By: #### L 301.0100, L301.0120, L301.0105 #### [facility] [address] [place] [address] 11829 URINE UROBILINO 0.2 EU/DL Normal 0.2-1.0 [facility] Comment on above: Performed By: #### L 301.0100, L301.0120, L301.0105 #### [facility] - [facility] [address] [place] [address] 41614 CBCon 05-09-2022 BASO# 0.10 x10(3) Normal 0.00-0.10 [facility] Comment on above: Performed By: #### L 200.0010 #### [facility] [address] [place] [address] 97290 Basophils/100 WBC (Bld) 0.4 % Normal 0.0-1.0 [facility] Comment on above: Performed By: #### L 200.0010 #### [facility] [address] [place] [address] 01463 EOS# 0.00 x10(3) Normal 0.00-0.54 [facility] Comment on above: Performed By: #### L 200.0010 #### [facility] [address] [place] [address] 61268 Eosinophils/100 WBC (Bld) 0.2 % Low 0.5-4.9 [facility] Comment on above: Performed By: #### L 200.0010 #### [facility] [address] [place] [address] 06275 Erythrocyte distribution width (RBC) [Ratio] 18.2 % High 12.5-15.7 [facility] Comment on above: Performed By: #### L 200.0010 #### ML [facility] [address] [place] [address] 11473 Hematocrit (Bld) [Volume fraction] 30.8 % Low 36.0-48.0 [facility] Comment on above: Performed By: #### L 200.0010 #### ML [facility] [address] [place] [address] 79379 Hemoglobin (Bld) [Mass/Vol] 10.2 g/dL Low 12.0-16.0 [facility] Comment on above: Performed By: #### L 200.0010 #### [facility] [address] [place] [address] 15956 LYMPH# 2.10 x10(3) Normal 1.00-3.50 [facility] Comment on above: Performed By: #### L 200.0010 #### [facility] [address] [place] [address] 26026 Lymphocytes/100 WBC (Bld) 12.1 % Low 16.0-48.0 [facility] Comment on above: Performed By: #### L 200.0010 #### [facility] [address] [place] [address] 14856 MCH (RBC) [Entitic mass] 27.8 pg Low 28.5-32.9 [facility] Comment on above: Performed By: #### L 200.0010 #### [facility] [address] [place] [address] 17297 MCHC (RBC) [Mass/Vol] 33.0 g/dL Normal 33.0-36.0 [facility] Comment on above: Performed By: #### L 200.0010 #### [facility] [address] [place] [address] 59879 MCV (RBC) [Entitic vol] 84.3 fL Normal 80.0-99.0 [facility] Comment on above: Performed By: #### L 200.0010 #### [facility] [address] [place] [address] 06775 MONO# 1.30 x10(3) High 0.30-0.80 [facility] Comment on above: Performed By: #### L 200.0010 #### [facility] [address] [place] [address] 00159 Monocytes/100 WBC (Bld) 7.3 % Normal 4.3-11.2 [facility] Comment on above: Performed By: #### L 200.0010 #### [facility] [address] [place] [address] 61445 NEUT# 14.10 x10(3) High 1.40-6.50 [facility] Comment on above: Performed By: #### L 200.0010 #### [facility] [address] [place] [address] 56849 Neutrophils/100 WBC (Bld) 80.0 % High 45.0-73.0 [facility] Comment on above: Performed By: #### L 200.0010 #### [facility] [address] [place] [address] 08585 Platelet mean volume (Bld) [Entitic vol] 8.1 fL Normal 7.5-9.5 [facility] Comment on above: Performed By: #### L 200.0010 #### [facility] [address] [place] [address] 46209 PLT 308 X10(3) Normal 150-450 [facility] Comment on above: Performed By: #### L 200.0010 #### [facility] [address] [place] [address] 79761 RBC 3.65 x10(6) Normal 3.30-5.00 [facility] Comment on above: Performed By: #### L 200.0010 #### [facility] [address] [place] [address] 69369 WBC 17.6 x10(3) Abnormal 4.5-10.0 [facility] Comment on above: Result Comment: De lta check (#) indicates a significant change in this laboratory value. It needs clinical correlation with patient situation or treatment. If the change in this test does not match your clinical situation or therapy, you may wish to re-test to verify the result. Performed By: #### L 200.0010 #### [facility] [address] [place] [address] 22549 D-DIMERon 05-09-2022 D-DIMER <200 Normal <200-230 [facility] Comment on above: Result Comment: The cut-off level recommended for the exclusion of pulmonary embolism(PE) or deep vein thrombosis(DVT) is <=230ng/mL DDU. Performed By: #### L 200.0010 #### [facility] [address] [place] [address] 28188 ECHO COMPLETEon 05-09-20[place] [address] HEALTH INFORMATION MANAGEMENT CARDIOLOGY REPORT Patient: KAITLYN ESCOBARJAVEDOFamilia [id number] [age] F Status: ADM IN [facility] Exam # Type/Exam [id number] CARD / ECHO COMPLETE DATE OF SERVICE: 05/09/2022 PROCEDURE: Echocardiogram. PHYSICIAN: Dalila Gray CNP. CLINICAL INFORMATION: Syncope. HEIGHT: 61. WEIGHT: 158. BLOOD PRESSURE: 136/80. 2D/M-MODE MEASUREMENTS: 1. Septum is 0.9. 2. Posterior wall 0.9. 3. End-diastole 4.9. 4. End-systole 3.1. 5. Left atrial size 3.1. 6. Aortic root 3.6. FINDINGS: 1. Left ventricular wall thickness is normal. Normal wall motion is seen. Ejection fraction is 65% to 70%. No segmental wall motion abnormalities seen. 2. Left atrial size is normal. 3. Right atrium and right ventricle normal. 4. Pulmonic valve is normal. 5. Tricuspid valve is normal size. 6. Mild degree of tricuspid regurgitation. 7. PA pressure estimated at 40 mmHg. 8. Aortic Valve: Difficult to determine number of leaflets. Valve area is 2.1, peak gradient is 7. Dimensionless index 0.8. 9. Mitral Valve: Normal size. Valve area is 4.5. Trace regurgitation. 10. No extracardiac masses. 11. No intracardiac masses. 12. TAPSE is 2.5, suggesting normal RV function. 13. E/E prime average is 11. 14. Normal relaxation pattern is seen. 15. Atrial septum is intact. 16. Ascending aorta is normal. 17. Trace degree of mitral regurgitation centrally located. 18. Inferior vena cava collapses more than 50%, suggesting normal RV volume. CONCLUSION: Echocardiogram demonstrates normal wall thickness. Normal wall motion. Ejection fraction 65% to 70%. Mild degree of tricuspid regurgitation. PA pressure is slightly increased at 40 mmHg. Right-sided chambers are still normal, not dilated. Trace degree of mitral regurgitation. Diastolic function is normal. Report#: Dict ID [id number] / Int ID [id number] 05/12/22 0508 JAVED REYES D.O. cc: DALILA GRAY C.N.P. << Signature on File>> Reported By: JAVED REYES D.O. Signed By: JAVED REYES D.O. Tests performed at: [address] [address] Normal [facility] EMERGENCY DEPARTMENT REPORTo n 05-09-2022 [place]ER[place]ENC[place] [address] HEALTH INFORMATION MANAGEMENT EMERGENCY DEPARTMENT REPORT Patient: KAITLYN ESCOBAR I MARILYN LYNN M.D. [id number] [age] F [facility] Date of Service: 05/08/22 ADDENDUM: The patient's EKG did show sinus rhythm here. CAT scan, lab work fairly unremarkable. When I speak with the patient, the patient has had several syncopal episodes that are new. She has no signs of an acute coronary syndrome here, but I am concerned she could be having some dysrhythmias. She is often alone by herself. She came in very hypertensive at 176/133. This has improved some, but I am concerned with this initial blood pressure and especially her other presenting complaints. I will speak with the hospitalist. IMPRESSION: Syncope, hypertension. Report#: Dict ID [id number] / Int ID [id number] 05/14/22 1210 MARILYN LYNN M.D. cc: KENTRELL DHALIWAL II, M.D.; MARILYN LYNN M.D. << Signature on File>> Reported By: MARILYN LYNN M.D. Signed By: MARILYN LYNN M.D. Tests performed at: [address] [address] Normal [facility] [place]ENC[place] [address] HEALTH INFORMATION MANAGEMENT EMERGENCY DEPARTMENT REPORT Patient: KAITLYN ESCOBAR I MARILYN LYNN M.D. [id number] [age] F [facility]: [facility] Date of Service: 05/08/22 CHIEF COMPLAINT: Hip pain. HISTORY OF PRESENT ILLNESS: This is a 71-year-old female who presents after a fall in her bathtub. She states she also has had some vomiting. She has been dealing with chronic abdominal pain, nausea, and vomiting ever since she had a bowel resection in October. It has been a chronic issue. She was seen here in the last week and diagnosed with urinary tract infection and was taking Augmentin. She states she vomited twice today. She states she felt like she pulled something in her stomach. She thinks she may have hit her head once, but does not really have a marilyn or any swelling on it. No neck pain. She states she is not sure if she passed out and they think perhaps she did lose consciousness. She is not sure about it. She is not sure if it was before or after the fall. States she just found herself flat in the bathtub. ALLERGIES: To sulfa, prochlorperazine, codeine, hydrocodone. SOCIAL HISTORY: The patient is . No alcohol or tobacco use. PAST SURGICAL HISTORY: Appendectomy, hysterectomy, cholecystectomy, colon resection. PAST MEDICAL HISTORY: Seizures. FAMILY HISTORY: Noncontributory. REVIEW OF SYSTEMS: Pertinent positives include nausea, vomiting, fall. It may be mechanical. She may have had a loss of consciousness. She cannot remember if it was before or after. No neck pain. She is moving her bowels, but she states it is a small amount frequently. This is how it has been going on she states. Appears since the surgery. No history of any extremity pain with her injuries to the extremities, hip possibly, but she states is more in the back of her hip. All other 10 systems reviewed and negative. PHYSICAL EXAMINATION: GENERAL: This is a mildly anxious-appearing white female resting quietly in no apparent distress. She is gagging here, nauseous. HEENT: Eyes: Pupils grossly normal. Sclerae nonicteric. Mucous membranes are moist. There is no meningismus or stridor. Otherwise normocephalic, atraumatic. There is no tenderness to palpation in posterior cervical spinous processes. NECK: Supple. Anterior examination of the neck is unremarkable. PULMONARY: Lung sounds clear to auscultation. HEART: Regular rate and rhythm without murmur, rub, or gallop. ABDOMEN: Soft. There is some tenderness to palpation in the suprapubic area. There are no signs of ecchymosis, edema, erythema, or hernia. Bowel sounds are present. EXTREMITIES: Good peripheral pulses. No edema. BACK: Examination of the back shows no ecchymosis, edema, or erythema. There is tenderness to palpation in the left sacroiliac joint. This is where the tenderness is localized. Nothing really in the midline. Nothing really to the hip joint itself. I am able to do a range of motion of the left hip without any significant pain. The patient has good peripheral pulses. NEUROLOGIC: [place] coma scale is 15. No gross focal deficits. PSYCHIATRIC: Mood and affect are normal. EMERGENCY DEPARTMENT COURSE: The patient has signs and symptoms here consistent with the fall. She may have had syncope. She may have had a posttraumatic loss of consciousness. She has some abdominal symptoms as well. She has been treated. She is nauseous. She has vomited twice. A lot of this has been chronic, but since October, but she states it is worse today. The patient will be evaluated with some x-rays, labs. I will give her some fluids here, some antiemetics. Report#: Dict ID [id number] / Int ID [id number] 05/14/22 1210 MARILYN LYNN M.D. cc: KENTRELL DHALIWAL II, M.D.; MARILYN LYNN M.D. << Signature on File>> Reported By: MARILYN LYNN M.D. Signed By: MARILYN LYNN M.D. Tests performed at: [address] [address] Normal [facility] GLUCOSE FSon 05-09-2022 Glucose [Mass/Vol] 130 mg/dL High 70-110 [facility] Comment on above: Performed By: #### L 301.0100, L301.0120, L301.0105 #### [facility] - [facility]ATORY [address] [place] [address] 75359 MAGNESIUMon 05-09-2022 Magnesium [Mass/Vol] 1.9 mg/dL Normal 1.6-2.4 [facility] Comment on above: Order Comment: ADD O N Performed By: #### L 301.0100, L301.0120, L301.0105 #### [facility] [address] [place] [address] 18088 PTon 05-09-2022 INR Coag (PPP) [Relative time] 1.2 {INR} High 0.8-1.1 [facility] Comment on above: Result Comment: CO UMADIN PROTOCOLS INR values are generated for use in patients on coumadin. INR values stabilize 7 days after the start of coumadin or changes in coumadin dosage. The usual TARGET/INR range is: INDICATION INR RANGE Prophylaxis/treatment of: Venous Thrombosis, Pulmonary Embolism 2.0-3.0 Prevention of systemic embolism from: Tissue heart valves 2.0-3.0 Acute myocardial infarction (to prevent systemic embolism) 2.0-3.0 AMI (to prevent recurrent MN) 2.5-3.5 Valvular heart disease 2.0-3.0 Atrial fibrillation 2.0-3.0 Mechanical prosthetic valves (high risk) 2.5-3.5 Bileaflet mechanical valve in aortic position 2.0-3.0 Presence of Lupus Anticoagulant or Antiphospholipid Antibodies 2.5-3.5 PANIC VALUE: GREATER THAN OR EQUAL TO 4.5 Performed By: #### L 200.3190, L200.3001 #### [facility] - [facility] [address] [place] [address] 44631 PT Coag (PPP) [Time] 13.3 s High 9.4-12.5 [facility] Comment on above: Performed By: #### L 200.3190, L200.3001 #### [facility] - [facility] [address] [place] [address] 60336 RAPID COVIDon 05-09-2022 SARS-CoV-2 (COVID-19) RNA RENATA+probe Ql (Unsp spec) Negative Normal NEGATIVE [facility] Comment on above: Result Comment: THIS TEST HAS BEEN AUTHORIZED BY FDA UNDER AN EMERGENCY USE AUTHORIZATION (EUA). NEGATIVE: NEGATIVE FOR COVID19 (SARS-CoV-2) BY PCR POSITIVE: POSITIVE FOR COVID19 (SARS-CoV-2) BY PCR PRESUMPTIVE POSITIVE: POSITIVE BY SINGLE WOO SARS-CoV TARGET. SARS-CoV-1 CANNOT BE EXCLUDED, BUT IS NOT CURRENTLY CIRCULATING IN [place]. Performed By: #### L 200.3190, L200.3001 #### [facility] [address] [place] [address] 45053 ABDOMEN (KUB)1 VIEWon 2021 ABDOMEN (KUB)[address] [address] Name: KAITLYN ESCOBAR I Phys: MARILYN LYNN M.D. : [birth year] Age: 71 Sex: F Acct: [id number] Loc: ED Exam Date: 05/08/22 Status: REG ER Radiology No.: Unit Number: [id number] Exam # Type/Exam [id number] RAD / ABDOMEN (KUB)1 VIEW EXAMINATION: ONE SUPINE XRAY VIEW(S) OF THE ABDOMEN05/08/2022 7:38 pm ABDOMEN 1 VIEW/KUB EXAM DESCRIPTION: COMPARISON: CT abdomen pelvis May 03, 2022 HISTORY: ORDERING SYSTEM PROVIDED HISTORY: TECHNOLOGIST PROVIDED HISTORY: Reason for Exam: Fall, pain FINDINGS: 2 supine views of the abdomen and pelvis were obtained. Bowel gas pattern is nonobstructed without dilatation, air-fluid level, or free air. No pathologic calcifications are seen. The osseous structures are unremarkable. IMPRESSION: Nonspecific nonobstructed bowel gas pattern. Electronically signed By Edmundo Diaz MD 05/08/2022 9:50:19 PM EST Workstation ID : [id number] < > Reported By: EDMUNDO DIAZ M.D. Signed In Fluency By: EDMUNDO DIAZ M.D. << Signature on File>> Reported By: EDMUNDO DIAZ M.D. Signed By: EDMUNDO DIAZ M.D. Tests performed at: [address] [address] Normal [facility] CBCon 05-08-2022 BASO# 0.10 x10(3) Normal 0.00-0.10 [facility] Comment on above: Performed By: #### L 200.3190, L200.3001 #### [facility] - [facility] [address] [place] [address] 79824 Basophils/100 WBC (Bld) 0.7 % Normal 0.0-1.0 [facility] Comment on above: Performed By: #### L 200.3190, L200.3001 #### [facility] - [facility] [address] [place] [address] 16950 EOS# 0.10 x10(3) Normal 0.00-0.54 [facility] Comment on above: Performed By: #### L 200.3190, L200.3001 #### [facility] - [facility] [address] [place] [address] 46399 Eosinophils/100 WBC (Bld) 0.7 % Normal 0.5-4.9 [facility] Comment on above: Performed By: #### L 200.3190, L200.3001 #### [facility] [address] [place] [address] 13225 Erythrocyte distribution width (RBC) [Ratio] 18.1 % High 12.5-15.7 [facility] Comment on above: Performed By: #### L 200.3190, L200.3001 #### [facility] [address] [place] [address] 62654 Hematocrit (Bld) [Volume fraction] 33.8 % Low 36.0-48.0 [facility] Comment on above: Performed By: #### L 200.3190, L200.3001 #### [facility] [address] [place] [address] 45429 Hemoglobin (Bld) [Mass/Vol] 11.2 g/dL Low 12.0-16.0 [facility] Comment on above: Performed By: #### L 200.3190, L200.3001 #### [facility] [address] [place] [address] 41601 LYMPH# 2.70 x10(3) Normal 1.00-3.50 [facility] Comment on above: Performed By: #### L 200.3190, L200.3001 #### [facility] [address] [place] [address] 74804 Lymphocytes/100 WBC (Bld) 30.2 % Normal 16.0-48.0 [facility] Comment on above: Performed By: #### L 200.3190, L200.3001 #### [facility] [address] [place] [address] 23533 MCH (RBC) [Entitic mass] 27.7 pg Low 28.5-32.9 [facility] Comment on above: Performed By: #### L 200.3190, L200.3001 #### [facility] [address] [place] [address] 34803 MCHC (RBC) [Mass/Vol] 33.0 g/dL Normal 33.0-36.0 [facility] Comment on above: Performed By: #### L 200.3190, L200.3001 #### [facility] [address] [place] [address] 54681 MCV (RBC) [Entitic vol] 84.1 fL Normal 80.0-99.0 [facility] Comment on above: Performed By: #### L 200.3190, L200.3001 #### [facility] [address] [place] [address] 60834 MONO# 0.80 x10(3) Normal 0.30-0.80 [facility] Comment on above: Performed By: #### L 200.3190, L200.3001 #### [facility] [address] [place] [address] 45637 Monocytes/100 WBC (Bld) 8.4 % Normal 4.3-11.2 [facility] Comment on above: Performed By: #### L 200.3190, L200.3001 #### [facility] [address] [place] [address]992 NEUT# 5.40 x10(3) Normal 1.40-6.50 [facility] Comment on above: Performed By: #### L 200.3190, L200.3001 #### [facility] [address] [place] [address] 63049 Neutrophils/100 WBC (Bld) 60.0 % Normal 45.0-73.0 [facility] Comment on above: Performed By: #### L 200.3190, L200.3001 #### [facility] [address] [place] [address] 04718 Platelet mean volume (Bld) [Entitic vol] 8.0 fL Normal 7.5-9.5 [facility] Comment on above: Performed By: #### L 200.3190, L200.3001 #### [facility] [address] [place] [address] 27180 PLT 372 X10(3) Normal 150-450 [facility] Comment on above: Performed By: #### L 200.3190, L200.3001 #### [facility] [address] [place] [address] 88704 RBC 4.02 x10(6) Normal 3.30-5.00 [facility] Comment on above: Performed By: #### L 200.3190, L200.3001 #### [facility] [address] [place] [address] 44335 WBC 9.0 x10(3) Normal 4.5-10.0 [facility] Comment on above: Performed By: #### L 200.3190, L200.3001 #### [facility] [address] [place] [address] 20366 CMPon 05-08-2022 A:G RATIO 1.30 Normal 1.1-2.5 [facility] Comment on above: Performed By: #### L 200.3190, L200.3001 #### [facility] [address] [place] [address] 93061 Albumin [Mass/Vol] 3.9 g/dL Normal 3.5-5.2 [facility] Comment on above: Performed By: #### L 200.3190, L200.3001 #### [facility] [address] [place] [address] 79963 ALK. PHOS 126 U/L High 35-105 [facility] Comment on above: Performed By: #### L 200.3190, L200.3001 #### [facility] [address] [place] [address] 15228 ALT [Catalytic activity/Vol] 17 U/L Normal 5-33 [facility] Comment on above: Performed By: #### L 200.3190, L200.3001 #### [facility] [address] [place] [address] 23427 Anion gap [Moles/Vol] 18.1 mmol/L Normal 15-22 [facility] Comment on above: Performed By: #### L 200.3190, L200.3001 #### [facility] [address] [place] [address] 61645 AST [Catalytic activity/Vol] 21 U/L Normal 5-32 [facility] Comment on above: Performed By: #### L 200.3190, L200.3001 #### [facility] [address] [place] [address] 78407 Bilirubin [Mass/Vol] 0.4 mg/dL Normal 0.2-1.2 [facility] Comment on above: Performed By: #### L 200.3190, L200.3001 #### [facility] [address] [place] [address] 81596 Calcium [Mass/Vol] 9.1 mg/dL Normal 8.8-10.2 [facility] Comment on above: Performed By: #### L 200.3190, L200.3001 #### [facility] [address] [place] [address] 76551 Chloride [Moles/Vol] 109 mmol/L High 98-107 [facility] Comment on above: Performed By: #### L 200.3190, L200.3001 #### [facility] - LABORATORY [address] [place] [address] 18124 CO2 [Moles/Vol] 19 mmol/L Low 22-29 [facility] Comment on above: Performed By: #### L 200.3190, L200.3001 #### [facility] - LABORATORY [address] [place] [address] 04129 Creatinine [Mass/Vol] 1.26 mg/dL High 0.50-0.90 [facility] Comment on above: Performed By: #### L 200.3190, L200.3001 #### - LABORATORY [address] [place] [address] 04993 eGFR if AFR ELOISA 51 Normal [facility] Comment on above: Result Comment: eGFR >= 60 Indicates normal kidney function. * eGFR IS AN ESTIMATE * (AFR ELOISA = ) (non-AFR AM = NON-) MDRD calculation used in the eGFR should not be used to dose medications. For further limitations of the eGFR please refer to the Physician Website or the National Kidney Disease Education Program website (www.nkdep.nih.gov). Performed By: #### L 200.3190, L200.3001 #### [facility] - LABORATORY [address] [place] [address] 63132 eGFR nonAFR Eloisa 42 Normal [facility] Comment on above: Performed By: #### L 200.3190, L200.3001 #### [facility] - LABORATORY [address] [place] [address] 30581 Globulin (S) [Mass/Vol] 3.0 g/dL Normal 1.5-4.5 [facility] Comment on above: Performed By: #### L 200.3190, L200.3001 #### [facility] - LABORATORY [address] [place] [address] 54516 Glucose [Mass/Vol] 108 mg/dL Normal 82-115 [facility] Comment on above: Performed By: #### L 200.3190, L200.3001 #### [facility] - LABORATORY [address] [place] [address] 39642 Potassium [Moles/Vol] 4.1 mmol/L Normal 3.5-5.0 [facility] Comment on above: Performed By: #### L 200.3190, L200.3001 #### [facility] - LABORATORY [address] [place] [address] 50932 Protein [Mass/Vol] 6.9 g/dL Normal 6.4-8.3 [facility] Comment on above: Performed By: #### L 200.3190, L200.3001 #### [facility] - LABORATORY [address] [place] [address] 40691 Sodium [Moles/Vol] 142 mmol/L Normal 135-145 [facility] Comment on above: Performed By: #### L 200.3190, L200.3001 #### [facility] - LABORATORY [address] [place] [address] 88091 Urea nitrogen [Mass/Vol] 4 mg/dL Low 8-23 [facility] Comment on above: Performed By: #### L 200.3190, L200.3001 #### [facility] - LABORATORY [address] [place] [address] BRAIN WITHOUT CONTRAST- C TBon 05-08-2022 CT BRAIN WITHOUT CONTRAST- CTB [facility] [address] [facility] [place], [place] [address] Name: KAITLYN ESCOBAR I Phys: MARILYN LYNN M.D. : [birth year] Age: 71 Sex: F Acct: [id number] Loc: ED Exam Date: 05/08/22 Status: REG ER Radiology No.: Unit Number: [id number] Exam # Type/Exam [id number] CT / CT BRAIN WITHOUT CONTRAST- CTB EXAMINATION: CT OF THE HEAD WITHOUT CONTRAST05/08/2022 7:[address] HEAD/BRAIN WITHOUT CONTRAST EXAM DESCRIPTION: TECHNIQUE: CT of the head was performed without the administration of intravenous contrast. Automated exposure control, iterative reconstruction, and/or weight based adjustment of the mA/kV was utilized to reduce the radiation dose to as low as reasonably achievable. COMPARISON: None available HISTORY: ORDERING SYSTEM PROVIDED HISTORY: TECHNOLOGIST PROVIDED HISTORY: Reason for Exam: Pain, fall FINDINGS: There is no evidence of mass, midline shift, hemorrhage, or infarct. Although the brain morphology appears normal, the ventricles, cortical sulci, and subarachnoid cisterns appear prominent. There are no extra-axial fluid collections. No regions of pathologic attenuation are evident. Decreased density periventricular white matter. Regions of the orbits and paranasal sinuses included within the field of view are unremarkable. There is no displaced fracture or osseous neoplasm. The extracalvarial soft tissues appear unremarkable. IMPRESSION: 1. No acute intracranial pathology. 2. Prominent CSF spaces usually indicate volume loss/atrophy as a manifestation of mild chronic white matter ischemia. COMMENT: Changes resultant from ischemia (even significant ischemia) may often be inapparent on CT exam, particularly if imaged early. Additionally, early changes due to neoplastic or inflammatory processes can be subtle to the extent that they are not prospectively noted. Therefore, if symptoms persist, or clinical suspicion for pathology remains, further evaluation may be obtained with MRI. Electronically signed By Edmundo Diaz MD 05/08/2022 9:38:16 PM EST Workstation ID : [id number] < > Reported By: EDMUNDO DIAZ M.D. Signed In Fluency By: EDMUNDO DIAZ M.D. ADDENDUM EXAMINATION: CT OF THE HEAD WITHOUT CONTRAST05/08/2022 7:[address] HEAD/BRAIN WITHOUT CONTRAST EXAM DESCRIPTION: TECHNIQUE: CT of the head was performed without the administration of intravenous contrast. Automated exposure control, iterative reconstruction, and/or weight based adjustment of the mA/kV was utilized to reduce the radiation dose to as low as reasonably achievable. COMPARISON: None available HISTORY: ORDERING SYSTEM PROVIDED HISTORY: TECHNOLOGIST PROVIDED HISTORY: Reason for Exam: Pain, fall FINDINGS: There is no evidence of mass, midline shift, hemorrhage, or infarct. Although the brain morphology appears normal, the ventricles, cortical sulci, and subarachnoid cisterns appear prominent. There are no extra-axial fluid collections. No regions of pathologic attenuation are evident. Decreased density periventricular white matter. Regions of the orbits and paranasal sinuses included within the field of view are unremarkable. There is no displaced fracture or osseous neoplasm. The extracalvarial soft tissues appear unremarkable. IMPRESSION: 1. No acute intracranial pathology. 2. Prominent CSF spaces usually indicate volume loss/atrophy as a manifestation of mild chronic white matter ischemia. COMMENT: Changes resultant from ischemia (even significant ischemia) may often be inapparent on CT exam, particularly if imaged early. Additionally, early changes due to neoplastic or inflammatory processes can be subtle to the extent that they are not prospectively noted. Therefore, if symptoms persist, or clinical suspicion for pathology remains, further evaluation may be obtained with MRI. Electronically signed By Edmundo Diaz MD 05/08/2022 9:38:16 PM EST Workstation ID : [id number] Addendum Dictated By: EDMUNDO DIAZ M.D. Addendum Signed In PowerScribe By: EDMUNDO DIAZ M.D. Addendum Transcribed By: 05/08/22 2138 RADIOLOGIS << Signature on File>> Reported By: EDMUNDO DIAZ M.D. Signed By: EDMUNDO DIAZ M.D. Tests performed at: [address] [address] Normal [facility] ELECTROCARDIOGRAMon 05-08-20 22 Electrocardiogram [facility] [address] [facility]FORMATION [facility]NAG[facility] ELECTROCARDIOGRAM REPORT Patient: KAITLYN ESCOBAR I Ordering: MARILYN LYNN M.D. [id number] [age] F Exam Date: 05/08/22 Report #: [id number] Status: REG ER ED Test Reason : Blood Pressure : / mmHG Vent. Rate : 096 BPM Atrial Rate : 096 BPM P-R Int : 148 ms QRS Dur : 064 ms QT Int : 374 ms P-R-T Axes : 062 033 047 degrees QTc Int : 472 ms Normal sinus rhythm Normal ECG When compared with ECG of 03-MAY-2022 22:34, No significant change was found Confirmed by MARILYN LYNN MD ([id number]) on 05/08/2022 9:20:29 PM Referred By: MARILYN LYNN Confirmed By:MARILYN LYNN MD Signed in [facility] 05/08/222120 MARILYN LYNN M.D. cc: << Signature on File>> Reported By: MARILYN LYNN M.D. Signed By: MARILYN LYNN M.D. Tests performed at: [address] [address] Normal [facility] HIP UNILATERAL 2-3 VIEWSon 0 05-08-2022 HIP UNILATERAL 2-[address] [address] Name: KAITLYN ESCOBAR I Phys: MARILYN LYNN M.D. : [birth year] Age: 71 Sex: F Acct: [id number] Loc: ED Exam Date: 05/08/22 Status: REG ER Radiology No.: Unit Number: [id number] Exam # Type/Exam [id number] RAD / HIP UNILATERAL 2-3 VIEWS EXAMINATION: 2 XRAY VIEWS OF THE LEFT HIP with AP pelvis05/08/2022 7:38 pm HIP LEFT EXAM DESCRIPTION: COMPARISON: None available HISTORY: ORDERING SYSTEM PROVIDED HISTORY: TECHNOLOGIST PROVIDED HISTORY: Reason for Exam: FINDINGS: AP and crosstable lateral views of the left hip with AP view of the pelvis were obtained. There is no fracture or dislocation. The joint spaces decreased with sclerosis of acetabular roof and small osteophyte formation of the superior acetabulum. The surrounding soft tissues are normal. IMPRESSION: Mild degenerative changes of the left hip. Electronically signed By Edmundo Diaz MD 05/08/2022 9:51:49 PM EST Workstation ID : [id number] < > Reported By: EDMUNDO DIAZ M.D. Signed In Fluency By: EDMUNDO DIAZ M.D. << Signature on File>> Reported By: EDMUNDO DIAZ M.D. Signed By: EDMUNDO DIAZ M.D. Tests performed at: [place] [address] Normal [facility] LIPASEon 05-08-2022 Lipase [Catalytic activity/Vol] 16 U/L Normal 13-60 [facility] Comment on above: Performed By: #### L 200.3190, L200.3001 #### [facility] - LABORATORY [address] [place] [address]257 URINALYSISon 05-08-2022 Bilirubin Ql (U) Negative Normal NEGATIVE [facility] Comment on above: Order Comment: Urine Specimen Source+ CLEAN CATCH Performed By: #### L 200.3190, L200.3001 #### [facility] - LABORATORY [address] [place] [address] 60304 Color (U) YELLOW Normal YELLOW [facility] Comment on above: Order Comment: Urine Specimen Source+ CLEAN CATCH Performed By: #### L 200.3190, L200.3001 #### [facility] - LABORATORY [address] [place] [address] 66910 Glucose Ql (U) Negative Normal NEGATIVE [facility] Comment on above: Order Comment: Urine Specimen Source+ CLEAN CATCH Performed By: #### L 200.3190, L200.3001 #### [facility] - [facility] LAB[facility]ATORY [address] [place] [address] 63502 Hemoglobin Ql (U) Negative Normal NEGATIVE [facility] Comment on above: Order Comment: Urine Specimen Source+ CLEAN CATCH Performed By: #### L 200.3190, L200.3001 #### [facility] - LABORATORY [address] [place] [address] 62395 Leukocyte esterase Test strip Ql (U) TRACE Normal NEGATIVE [facility] Comment on above: Order Comment: Urine Specimen Source+ CLEAN CATCH Performed By: #### L 200.3190, L200.3001 #### [facility] - LABORATORY [address] [place] [address] 08524 Nitrite Ql (U) Negative Normal NEGATIVE [facility] Comment on above: Order Comment: Urine Specimen Source+ CLEAN CATCH Performed By: #### L 200.3190, L200.3001 #### [facility] - LABORATORY [address] [place] [address] 47725 pH (U) 6.0 [pH] Normal 5.0-8.0 [facility] Comment on above: Order Comment: Urine Specimen Source+ CLEAN CATCH Performed By: #### L 200.3190, L200.3001 #### [facility] - LABORATORY [address] [place] [address] 54934 Protein Ql (U) Negative Normal NEGATIVE [facility] Comment on above: Order Comment: Urine Specimen Source+ CLEAN CATCH Performed By: #### L 200.3190, L200.3001 #### [facility] - LABORATORY [address] [place] [address] 42018 URINE APPEARANC CLEAR Normal CLEAR [facility] Comment on above: Order Comment: Urine Specimen Source+ CLEAN CATCH Performed By: #### L 200.3190, L200.3001 #### [facility] - LABORATORY [address] [place] [address] 78748 URINE KETONE Negative Normal NEGATIVE [facility] Comment on above: Order Comment: Urine Specimen Source+ CLEAN CATCH Performed By: #### L 200.3190, L200.3001 #### ML - LABORATORY [address] [place] [address] 70125 URINE SPECIFIC <=1.005 Normal 1.001-1.035 [facility] Comment on above: Order Comment: Urine Specimen Source+ CLEAN CATCH Performed By: #### L 200.3190, L200.3001 #### [facility] - [facility] [address] [place] [address] 25220 URINE UROBILINO 0.2 EU/DL Normal 0.2-1.0 [facility] Comment on above: Order Comment: Urine Specimen Source+ CLEAN CATCH Performed By: #### L 200.3190, L200.3001 #### [facility] - [facility] [address] [place] [address] 12671 URINE MICROSCOPon 05-08-2022 Mucus Ql (Urine sed) TR Normal NEGATIVE [facility] Comment on above: Order Comment: Urine Specimen Source+ CLEAN CATCH Performed By: #### L 200.3190, L200.3001 #### [facility] - [facility] [address] [place] [address] 46013 SQUAMOUS FEW Normal NEGATIVE [facility] Comment on above: Order Comment: Urine Specimen Source+ CLEAN CATCH Performed By: #### L 200.3190, L200.3001 #### [facility] - [facility] [address] [place] [address] 69817 URINE BACTERIA TR Normal NEGATIVE [facility] Comment on above: Order Comment: Urine Specimen Source+ CLEAN CATCH Performed By: #### L 200.3190, L200.3001 #### [facility] - [facility] [address] [place] [address] 62429 URINE RBC 1-3 Normal 0-2 [facility] Comment on above: Order Comment: Urine Specimen Source+ CLEAN CATCH Performed By: #### L 200.3190, L200.3001 #### [facility] - [facility] [address] [place] [address] 78638 URINE WBC 6-10 Normal 0-5 [facility] Comment on above: Order Comment: Urine Specimen Source+ CLEAN CATCH Performed By: #### L 200.3190, L200.3001 #### [facility] - [facility] [address] [place] [address] 39170 BMPon 05-04-2022 Anion gap [Moles/Vol] 15.1 mmol/L Normal 15-22 [facility] Comment on above: Performed By: #### L 200.0010 #### [facility] - [facility] [address] [place] [address] 42891 Calcium [Mass/Vol] 9.3 mg/dL Normal 8.8-10.2 [facility] Comment on above: Performed By: #### L 200.0010 #### [facility] - [facility] [address] [place] [address] 40617 Chloride [Moles/Vol] 101 mmol/L Normal 98-107 [facility] Comment on above: Performed By: #### L 200.0010 #### ML [facility] [address] [place] [address] 10490 CO2 [Moles/Vol] 23 mmol/L Normal 22-29 [facility] Comment on above: Performed By: #### L 200.0010 #### [facility] [address] [place] [address] 64351 Creatinine [Mass/Vol] 1.36 mg/dL High 0.50-0.90 [facility] Comment on above: Performed By: #### L 200.0010 #### ML [facility] [address] [place] [address] 73326 eGFR if AFR ELOISA 47 [facility] Comment on above: Result Comment: eGFR >= 60 Indicates normal kidney function. * eGFR IS AN ESTIMATE * (AFR ELOISA = ) (non-AFR AM = NON-) MDRD calculation used in the eGFR should not be used to dose medications. For further limitations of the eGFR please refer to the Physician Website or the National Kidney Disease Education Program website (www.nkdep.nih.gov). Performed By: #### L 200.0010 #### ML [facility] [address] [place] [address] 56276 eGFR nonAFR Eloisa 38 [facility] Comment on above: Performed By: #### L 200.0010 #### ML [facility] [address] [place] [address] 71755 Glucose [Mass/Vol] 96 mg/dL Normal 82-115 [facility] Comment on above: Performed By: #### L 200.0010 #### ML [facility] [address] [place] [address] 33590 Potassium [Moles/Vol] 4.1 mmol/L Normal 3.5-5.0 [facility] Comment on above: Performed By: #### L 200.0010 #### [facility] [address] [place] [address] Sodium [Moles/Vol] 135 mmol/L Normal 135-145 [facility] Comment on above: Performed By: #### L 200.0010 #### ML [facility] [address] [place] [address] 86887 Urea nitrogen [Mass/Vol] 8 mg/dL Normal 8-23 [facility] Comment on above: Performed By: #### L 200.0010 #### ML - LABORATORY [address] [place] [address]179 CBCon 05-04-2022 BASO# 0.10 x10(3) Normal 0.00-0.10 [facility] Comment on above: Performed By: #### L 200.0010 #### ML [facility] [address] [place] [address] 84773 Basophils/100 WBC (Bld) 1.2 % High 0.0-1.0 [facility] Comment on above: Performed By: #### L 200.0010 #### ML [facility] [address] [place] [address] 91765 EOS# 0.10 x10(3) Normal 0.00-0.54 [facility] Comment on above: Performed By: #### L 200.0010 #### ML [facility] [address] [place] [address] 42371 Eosinophils/100 WBC (Bld) 0.8 % Normal 0.5-4.9 [facility] Comment on above: Performed By: #### L 200.0010 #### ML - LABORATORY [address] [place] [address] Erythrocyte distribution width (RBC) [Ratio] 17.8 % High 12.5-15.7 [facility] Comment on above: Performed By: #### L 200.0010 #### ML [facility] [address] [place] [address] Hematocrit (Bld) [Volume fraction] 36.8 % Normal 36.0-48.0 [facility] Comment on above: Performed By: #### L 200.0010 #### [facility] - LABORATORY [address] [place] [address]356 Hemoglobin (Bld) [Mass/Vol] 12.0 g/dL Normal 12.0-16.0 [facility] Comment on above: Performed By: #### L 200.0010 #### ML [facility] [address] [place] [address] 49562 LYMPH# 3.70 x10(3) High 1.00-3.50 [facility] Comment on above: Performed By: #### L 200.0010 #### [facility] - LABORATORY [address] [place] [address] 30312 Lymphocytes/100 WBC (Bld) 38.8 % Normal 16.0-48.0 [facility] Comment on above: Performed By: #### L 200.0010 #### [facility] - LABORATORY [address] [place] [address] 65084 MCH (RBC) [Entitic mass] 27.5 pg Low 28.5-32.9 [facility] Comment on above: Performed By: #### L 200.0010 #### [facility] - LABORATORY [address] [place] [address]48 MCHC (RBC) [Mass/Vol] 32.5 g/dL Low 33.0-36.0 [facility] Comment on above: Performed By: #### L 200.0010 #### ML [facility] [address] [place] [address] 87878 MCV (RBC) [Entitic vol] 84.6 fL Normal 80.0-99.0 [facility] Comment on above: Performed By: #### L 200.0010 #### [facility] - LABORATORY [address] [place] [address] 78295 MONO# 0.90 x10(3) High 0.30-0.80 [facility] Comment on above: Performed By: #### L 200.0010 #### [facility] [address] [place] [address] 67546 Monocytes/100 WBC (Bld) 9.0 % Normal 4.3-11.2 [facility] Comment on above: Performed By: #### L 200.0010 #### [facility] - LABORATORY [address] [place] [address] 80038 NEUT# 4.80 x10(3) Normal 1.40-6.50 [facility] Comment on above: Performed By: #### L 200.0010 #### [facility] - LABORATORY [address] [place] [address] 17580 Neutrophils/100 WBC (Bld) 50.2 % Normal 45.0-73.0 [facility] Comment on above: Performed By: #### L 200.0010 #### [facility] - LABORATORY [address] [place] [address] 90017 Platelet mean volume (Bld) [Entitic vol] 8.3 fL Normal 7.5-9.5 [facility] Comment on above: Performed By: #### L 200.0010 #### [facility] - LABORATORY [address] [place] [address] 58085 PLT 390 X10(3) Normal 150-450 [facility] Comment on above: Performed By: #### L 200.0010 #### [facility] - LABORATORY [address] [place] [address] 70369 RBC 4.36 x10(6) Normal 3.30-5.00 [facility] Comment on above: Performed By: #### L 200.0010 #### [facility] - LABORATORY [address] [place] [address] 73084 WBC 9.6 x10(3) Normal 4.5-10.0 [facility] Comment on above: Performed By: #### L 200.0010 #### [facility] - LABORATORY [address] [place] [address] ABD/PEL W CONTRASTon 04-17 CT ABD/PEL W CONTRAST [address] [address] Name: KAITLYN ESCOBAR I Phys: ABEL JOSEPH M.D. : [birth year] Age: 71 Sex: F Acct: [id number] Loc: ED Exam Date: 05/03/22 Status: REG ER Radiology No.: Unit Number: [id number] Exam # Type/Exam [id number] CT / CT ABD/PEL W CONTRAST EXAMINATION: CT OF THE ABDOMEN AND PELVIS WITH CONTRAST05/03/2022 9:[address] ABDOMEN/PELVIS WITH CONTRAST EXAM DESCRIPTION: TECHNIQUE: CT of the abdomen and pelvis was performed with the administration of intravenous contrast. Multiplanar reformatted images are provided for review. Automated exposure control, iterative reconstruction, and/or weight based adjustment of the mA/kV was utilized to reduce the radiation dose to as low as reasonably achievable. COMPARISON: CT abdomen pelvis April 21, 2022 HISTORY: ORDERING SYSTEM PROVIDED HISTORY: TECHNOLOGIST PROVIDED HISTORY: Reason for Exam: abdominal pain FINDINGS: The size, density, and morphology of the liver, spleen, adrenals, kidneys, pancreas and unopacified loops of bowel are unremarkable. Subcentimeter cyst right lobe of the liver. The opacified aorta demonstrates normal size and morphology without aneurysmal dilation or dissection. There are no enlarged lymph nodes by pathologic size criteria. There is no free fluid within the pelvis. The bladder and pelvic organs have an unremarkable CT appearance. The osseous structures are without gross lytic or sclerotic lesion. The lung bases are clear. IMPRESSION: No acute intra-abdominal or intrapelvic pathology. Electronically signed By Edmundo Diaz MD 05/03/2022 11:48:24 PM EST Workstation ID : [id number] < > Reported By: EDMUNDO DIAZ M.D. Signed In Fluency By: EDMUNDO DIAZ M.D. << Signature on File>> Reported By: EDMUNDO DIAZ M.D. Signed By: EDMUNDO DIAZ M.D. Tests performed at: [place] [address] Normal [facility] EKGon 05-04-2022 Atrial Rate 74 BPM [facility] Calculated P [place] 71 degrees [facility] Calculated R [place] 17 degrees [facility] Calculated T [place] 43 degrees [facility] P-R Interval 160 ms [facility] QRS Duration 72 ms [facility] QT Interval 418 ms [facility] QTC Calculation (Bazett) 463 ms [facility] Ventricular Rate 74 BPM [facility] ELECTROCARDIOGRAMon 05-04-20 [place] [address] HEALTH INFORMATION MANAGEMENT ELECTROCARDIOGRAM REPORT Patient: KAITLYN ESCOBAR I Ordering: ABEL JOSEPH M.D. [id number] [age] F Exam Date: 05/03/22 Report #: [id number] Status: [facility] ER ED Test Reason : Blood Pressure : / mmHG Vent. Rate : 074 BPM Atrial Rate : 074 BPM P-R Int : 160 ms QRS Dur : 072 ms QT Int : 418 ms P-R-T Axes : 071 017 043 degrees QTc Int : 463 ms Normal sinus rhythm Normal ECG When compared with ECG of 15-NOV-2021 21:28, No significant change was found Confirmed by ABEL JOSEPH MD ([id number]) on 05/04/2022 2:09:15 AM Referred By: ABEL JOSEPH Confirmed By:ABEL JOSEPH MD Signed in [facility] 05/04/22 0211 ABEL JOSEPH M.D. cc: << Signature on File>> Reported By: ABEL JOSEPH M.D. Signed By: ABEL JOSEPH M.D. Tests performed at: [address] [address] Normal [facility] EMERGENCY DEPARTMENT REPORTo n 05-04-2022 [place]ER[place]ENCY [place] [address] HEALTH INFORMATION MANAGEMENT EMERGENCY DEPARTMENT REPORT Patient: KAITLYN ESCOBAR I ABEL JOSEPH M.D. [id number] [age] F Status: [facility] ER ED Date of Service: 05/03/22 ADDENDUM: DIAGNOSTIC TESTS: CBC shows a white count of 9.6, hemoglobin of 12.0, and platelet count of 390,000. Lactic acid 1.9. Basic metabolic panel and hepatic panel have been reviewed. Creatinine is 1.36. Lipase 26. Troponin T is less than 0.010. CT of the abdomen and pelvis shows no definite acute abnormalities and urinalysis shows positive nitrite, large leukocyte, 40 to 50 white cells, and 4+ bacteria. EMERGENCY DEPARTMENT COURSE: The patient was brought into the ER and was evaluated by myself. Blood work was obtained. She definitely appears to have urinary tract infection now. CT was negative. I initially gave her some Zofran and morphine. I added on some Levsin and she appears to be feeling better now. She has been up and walking around. I have ordered a dose of Zosyn here. I plan to place her on Augmentin at home as well as some Tylenol with codeine just for the proximate pain. DIAGNOSES: Abdominal pain, urinary tract infection. DISPOSITION: Discharged home. FOLLOWUP: With her primary care provider, Dr. Dhaliwal. Report#: Dict ID [id number] / Int ID [id number] 05/09/22 1906 ABEL JOSEPH M.D. cc: ABEL JOSEPH M.D.; KENTRELL DHALIWAL II, M.D. << Signature on File>> Reported By: ABEL JOSEPH M.D. Signed By: ABEL JOSEPH M.D. Tests performed at: [address] [address] [facility] [place] [address] HEALTH INFORMATION MANAGEMENT EMERGENCY DEPARTMENT REPORT Patient: KAITLYN ESCOBAR I ABEL JOSEPH M.D. [id number] F Status: [facility] ED Date of Service: 05/03/22 CHIEF COMPLAINT: Abdominal pain and cramping. ALLERGIES: Sulfa, statins, prochlorperazine, codeine, hydrocodone, oxycodone, acetaminophen, Depakote, orphenadrine, Levaquin, cefdinir, latex, and shellfish. MEDICATIONS: 1. Zofran. 2. Bentyl. 3. Zoloft. 4. Prilosec. 5. Wellbutrin. 6. Xanax. 7. Synthroid. 8. Eliquis. 9. Zanaflex. 10. Ambien. HISTORY OF PRESENT ILLNESS: Kaitlyn is a very nice 71-year-old white female who presents to the emergency department today for abdominal cramping. This has been ongoing now for about 2 days. She has a history of multiple previous bowel obstructions. She had I think a pretty significant laparotomy performed about 6 months ago for this. It seems that the bowel obstructions are due to adhesions this pain and cramping she has had some diarrhea. She was here actually almost 2 weeks ago for similar issue and she tells me that after having received some morphine, she felt much better. CT was obtained and it showed no acute abnormalities and she had done well again until about 2 days ago when she started this cramping. Symptoms seem to get worse when she tries to eat. She has not really eaten much. She took some Zofran at home and it really helped. PREVIOUS MEDICAL HISTORY: Significant for above-noted multiple small bowel obstructions, acute kidney injury, diabetes , depression, Parkinson disease, urinary tract infections, anxiety, hypocalcemia, and hypothyroidism. SURGICAL HISTORY: Positive for again multiple laparotomies, bowel resections, appendectomy, hysterectomy, and cholecystectomy. SOCIAL HISTORY: The patient is . Nonsmoker. Nondrinker. REVIEW OF SYSTEMS: As per history of present illness. Remainder of 10-item review of systems appears to be negative. PHYSICAL EXAMINATION: GENERAL/CONSTITUTIONAL : The patient is an age-appropriate white female, she appears to be uncomfortable. HEENT: Head is symmetric and atraumatic. Eyes unremarkable. No significant redness or swelling noted. LUNGS: Clear to auscultation bilaterally. HEART: I believe is regular rate and rhythm. ABDOMEN: Soft. There is diffuse tenderness, a bit more in the left compared to the right. Bowel sounds are present but diminished. SKIN: Unremarkable. No rashes. No ecchymosis noted. EXTREMITIES: Unremarkable. No redness or swelling noted. NEUROLOGIC: The patient is awake and alert, appropriately interactive. No focal deficits noted. PSYCHIATRIC: The patient is awake and alert. Normal amina of speech. No flight of ideas noted. Normal grooming noted. DICTATION ENDS HERE Report#: Dict ID [id number] / Int ID [id number] 05/09/22 1906 ABEL JOSEPH M.D. cc: ABEL JOSEPH M.D.; KENTRELL DHALIWAL II, M.D. << Signature on File>> Reported By: ABEL JOSEPH M.D. Signed By: ABEL JOSEPH M.D. Tests performed at: [address] [address] Normal [facility] HEPATIC PANELon 05-04-2022 A:G RATIO 1.38 Normal 1.1-2.5 [facility] Comment on above: Performed By: #### L 200.0010 #### [facility] - LABORATORY [address] [place] [address] 31349 Albumin [Mass/Vol] 4.3 g/dL Normal 3.5-5.2 [facility] Comment on above: Performed By: #### L 200.0010 #### [facility] - LABORATORY [address] [place] [address] 94145 ALK. PHOS 98 U/L Normal 35-105 [facility] Comment on above: Performed By: #### L 200.0010 #### [facility] - LABORATORY [address] [place] [address] 20537 ALT [Catalytic activity/Vol] 19 U/L Normal 5-33 [facility] Comment on above: Performed By: #### L 200.0010 #### [facility] - LABORATORY [address] [place] [address] 69875 AST [Catalytic activity/Vol] 27 U/L Normal 5-32 [facility] Comment on above: Performed By: #### L 200.0010 #### [facility] - LABORATORY [address] [place] [address] 23363 Bilirubin [Mass/Vol] 0.2 mg/dL Normal 0.2-1.2 [facility] Comment on above: Performed By: #### L 200.0010 #### [facility] - LABORATORY [address] [place] [address] DIRECT BILIRUBI <0.2 Normal 0.0-0.3 [facility] Comment on above: Performed By: #### L 200.0010 #### [facility] - LABORATORY [address] [place] [address] Globulin (S) [Mass/Vol] 3.1 g/dL Normal 1.5-4.5 [facility] Comment on above: Performed By: #### L 200.0010 #### [facility] - LABORATORY [address] [place] [address]48 Protein [Mass/Vol] 7.4 g/dL Normal 6.4-8.3 [facility] Comment on above: Performed By: #### L 200.0010 #### [facility] - LABORATORY [address] [place] [address] LACTIC ACIDon 05-04-2022 Lactate [Moles/Vol] 1.9 mmol/L Normal 0.5-2.0 [facility] Comment on above: Performed By: #### L 200.3001 #### ML [facility] [address] [place] [address] 20757 LIPASEon 05-04-2022 Lipase [Catalytic activity/Vol] 26 U/L Normal 13-60 [facility] Comment on above: Performed By: #### L 200.3001 #### ML [facility] [address] [place] [address] 505[address] TROPONIN Ton 05-04-2022 TROPONIN T <0.010 Normal 0-0.010 [facility] Comment on above: Performed By: #### L 200.3001 #### ML [facility] [address] [place] [address] 43202 UA W/C&Son 05-04-2022 Bilirubin Ql (U) Negative Normal NEGATIVE [facility] Comment on above: Order Comment: Urine Specimen Source+ CLEAN CATCH Performed By: #### L 200.3190, L200.3001 #### [facility] - LABORATORY [address] [place] [address] Color (U) YELLOW Normal YELLOW [facility] Comment on above: Order Comment: Urine Specimen Source+ CLEAN CATCH Performed By: #### L 200.3190, L200.3001 #### ML [facility] [address] [place] [address]20 Glucose Ql (U) Negative Normal NEGATIVE [facility] Comment on above: Order Comment: Urine Specimen Source+ CLEAN CATCH Performed By: #### L 200.3190, L200.3001 #### [facility] - [facility]ATORY [address] [place] [address] 48918 Hemoglobin Ql (U) TRACE-INTACT Normal NEGATIVE [facility] Comment on above: Order Comment: Urine Specimen Source+ CLEAN CATCH Performed By: #### L 200.3190, L200.3001 #### [facility] - [facility]ATORY [address] [place] [address] Leukocyte esterase Test strip Ql (U) LARGE Normal NEGATIVE [facility] Comment on above: Order Comment: Urine Specimen Source+ CLEAN CATCH Performed By: #### L 200.3190, L200.3001 #### [facility] - [facility]ATORY [address] [place] [address]100 Nitrite Ql (U) Positive Normal NEGATIVE [facility] Comment on above: Order Comment: Urine Specimen Source+ CLEAN CATCH Performed By: #### L 200.3190, L200.3001 #### [facility] - [facility]ATORY [address] [place] [address] 54976 pH (U) 6.0 [pH] Normal 5.0-8.0 [facility] Comment on above: Order Comment: Urine Specimen Source+ CLEAN CATCH Performed By: #### L 200.3190, L200.3001 #### [facility] - [facility] [address] [place] [address] 301[address] Protein Ql (U) Negative Normal NEGATIVE [facility] Comment on above: Order Comment: Urine Specimen Source+ CLEAN CATCH Performed By: #### L 200.0, L200.3001 #### [facility] - [facility] [address] [place] [address]49[address] URINE APPEARANC SL CLOUDY Normal CLEAR [facility] Comment on above: Order Comment: Urine Specimen Source+ CLEAN CATCH Performed By: #### L 200.3190, L200.3001 #### [facility] - [facility] [address] [place] [address] URINE KETONE Negative Normal NEGATIVE [facility] Comment on above: Order Comment: Urine Specimen Source+ CLEAN CATCH Performed By: #### L 200.3190, L200.3001 #### [facility] - [facility]ATORY [address] [place] [address] URINE SPECIFIC <=1.005 Normal 1.001-1.035 [facility] Comment on above: Order Comment: Urine Specimen Source+ CLEAN CATCH Performed By: #### L 200.3190, L200.3001 #### [facility] - LAB[facility]AT[facility] [address] [place] [address] URINE UROBILINO 0.2 EU/DL Normal 0.2-1.0 [facility] Comment on above: Order Comment: Urine Specimen Source+ CLEAN CATCH Performed By: #### L 200.3190, L200.3001 #### [facility] [address] [place] [address] URINE MICROSCOPon 05-04-2022 Mucus Ql (Urine sed) TR Normal NEGATIVE [facility] Comment on above: Order Comment: Urine Specimen Source+ CLEAN CATCH Performed By: #### L 200.3190, L200.3001 #### [facility] - LAB[facility]ATORY [address] [place] [address] SQUAMOUS FEW Normal NEGATIVE [facility] Comment on above: Order Comment: Urine Specimen Source+ CLEAN CATCH Performed By: #### L 200.3190, L200.3001 #### [facility] - [facility] [address] [place] [address] URINE BACTERIA 4+ Normal NEGATIVE [facility] Comment on above: Order Comment: Urine Specimen Source+ CLEAN CATCH Performed By: #### L 200.3190, L200.3001 #### [facility] - [facility]ATORY [address] [place] [address] 19555 URINE RBC 1-3 Normal 0-2 [facility] Comment on above: Order Comment: Urine Specimen Source+ CLEAN CATCH Performed By: #### L 200.3190, L200.3001 #### [facility] - [facility]ATORY [address] [place] [address] 301[address] URINE WBC 40-50 Normal 0-5 [facility] Comment on above: Order Comment: Urine Specimen Source+ CLEAN CATCH Performed By: #### L 200.3190, L200.3001 #### [facility] - LAB[facility]ATORY [address] [place] [address]365 Urinalysis complete panel (U )on 05-04-2022 Appearance (U) SL CLOUDY [facility] Bacteria, Urine 4+ NEGATIVE [facility] Bilirubin, Urine Negative NEGATIVE [facility] Blood, Urine TRACE-INTACT NEGATIVE [facility] Color (U) YELLOW YELLOW [facility] Glucose Ql (U) Negative NEGATIVE MG/DL [facility] Ketones Ql (U) Negative NEGATIVE MG/DL [facility] Leukocytes LARGE NEGATIVE [facility] Nitrites Urine Positive NEGATIVE [facility] pH (U) 6.0 [pH] 5.0 - 8.0 [facility] Protein.monoclonal (U) [Mass/Vol] Negative NEGATIVE MG/DL [facility] RBC, Urine 1-3 0 - 2 [facility] Specific [place], Ur <=1.005 1.001 - 1.035 [facility] Squamous Epithelial Cells FEW NEGATIVE [facility] Ur Mucous TR NEGATIVE [facility] Urobilinogen, Urine 0.2 EU/DL 0.2 - 1. 0 EU/DL [facility] WBC, Urine 40-50 0 - 5 [facility] Basic metabolic 2000 panelon 05-03-2022 Anion gap [Moles/Vol] 15.1 mmol/L 15 - 2 2 mmol/L [facility] Calcium [Mass/Vol] 9.3 mg/dL 8.8 - 10. 2 mg/dL [facility] Chloride [Moles/Vol] 101 mmol/L 98 - 10 7 mmol/L [facility] CO2 [Moles/Vol] 23 mmol/L 22 - 29 mmol/L [facility] Creatinine [Mass/Vol] 1.36 mg/dL High 0.50 - 0.90 mg/dL [facility] eGFR-All Other Races 38 [facility] GFR/1.73 sq M.predicted among blacks MDRD (S/P/Bld) [Vol rate/Area] 47 mL/min/{1.73_m2} [facility] Glucose [Mass/Vol] 96 mg/dL 82 - 115 mg/dL [facility] Potassium [Moles/Vol] 4.1 mmol/L 3.5 - 5.0 mmol/L [facility] Sodium [Moles/Vol] 135 mmol/L 135 - 145 mmol/L [facility] Urea nitrogen [Mass/Vol] 8 mg/dL 8 - 23 mg/dL [facility] CBC W Auto Differential pane l (Bld)on 05-03-2022 BASO ABS 0.10 x10(3) 0.00 - 0.10 x10(3) [facility] Basophils/100 WBC (Bld) 1.2 % High 0.0 - 1.0 % [facility] EOS ABS 0.10 x10(3) 0.00 - 0.54 x10(3) [facility] Eosinophils/100 WBC (Bld) 0.8 % 0.5 - 4.9 % [facility] Erythrocyte distribution width (RBC) [Ratio] 17.8 % High 12.5 - 15.7 % [facility] Hematocrit (Bld) [Volume fraction] 36.8 % 36.0 - 48.0 % [facility] Hemoglobin (Bld) [Mass/Vol] 12.0 g/dL 12.0 - 16.0 g/dL [facility] LYMPH ABS 3.70 x10(3) High 1.00 - 3.50 x10(3) [facility] Lymphocytes/100 WBC (Bld) 38.8 % 16.0 - 48.0 % [facility] MCH (RBC) [Entitic mass] 27.5 pg Low 28.5 - 32.9 pg [facility] MCHC (RBC) [Mass/Vol] 32.5 g/dL Low 33.0 - 36.0 g/dL [facility] MCV (RBC) [Entitic vol] 84.6 fL 80.0 - 99.0 fl [facility] MONO ABS 0.90 x10(3) High 0.30 - 0.80 x10(3) [facility] Monocytes/100 WBC (Bld) 9.0 % 4.3 - 11.2 % [facility] Neutrophil Ab 4.80 x10(3) 1.40 - 6.50 x10(3) [facility] Neutrophils/100 WBC (Bld) 50.2 % 45.0 - 73.0 % [facility] Platelet Count 390 X10(3) 150 - 450 X10(3) [facility] Platelet mean volume (Bld) [Entitic vol] 8.3 fL 7.5 - 9.5 fl [facility] RBC 4.36 x10(6) 3.30 - 5.00 x10(6) [facility] WBC 9.6 x10(3) 4.5 - 10.0 x10(3) [facility] CT ABD/PEL W IVCONon 022 [facility] Hepatic function 2000 panelo n 05-03-2022 Albumin [Mass/Vol] 4.3 g/dL 3.5 - 5.2 g/dL [facility] Albumin/Globulin [Mass ratio] 1.38 {ratio} 1.1 - 2.5 [facility] ALP [Catalytic activity/Vol] 98 U/L 35 - 105 U/L [facility] ALT [Catalytic activity/Vol] 19 U/L 5 - 33 U/L [facility] AST [Catalytic activity/Vol] 27 U/L 5 - 32 U/L [facility] Bilirubin [Mass/Vol] 0.2 mg/dL 0.2 - 1 .2 mg/dL [facility] Direct Bilirubin <0.2 0.0 - 0.3 mg/dL [facility] Globulin (S) [Mass/Vol] 3.1 g/dL 1.5 - 4.5 g/dL [facility] Protein [Mass/Vol] 7.4 g/dL 6.4 - 8.3 g/dL [facility] LIPASE BLDon 05-03-2022 Lipase [Catalytic activity/Vol] 26 U/L 13 - 60 U/L [facility] Lactate (Bld) [Moles/Vol]on 05-03-2022 Lactic Acid Plasma 1.9 mmol/L 0.5 - 2.0 mmol/L [facility] TROPONIN Ton 05-03-2022 Troponin T <0.010 0 - 0.010 ng/mL [facility] Urine Cultureon 05-03-2022 Bacteria identified Cx Nom (U) CULTURE, URINE Mixed microbiota, including predominantly: CULTURE, URINE ESCHERICHIA COLI >=100,000 CFU/ml Escherichia coli CLSI breakpoints for therapy of uncomplicated UTIs due to E. coli, K. pneumoniae, and P. mirabilis were applied and may be used to predict the activity of oral agents (cefaclor, cefdinir, cefpodoxime, cefprozil, cefuroxime, cephalexin, loracarbef). ORGANISM: ESCHERICHIA COLI ANTIBIOTIC EBONY DILUTN EBONY INTERP Ampicillin 8 Susceptible Ampicillin/Sulbact 4 Susceptible Cefazolin 4 Susceptible Cefepime 1 Susceptible Ceftriaxone 1 Susceptible Ciprofloxacin 0.25 Susceptible Ertapenem 0.5 Susceptible Gentamicin 1 Susceptible Meropenem 0.25 Susceptible Nitrofurantoin 16 Susceptible Piperacillin/Tazobac 4 Susceptible Tobramycin 1 Susceptible Trimeth sulfameth 20 Susceptible SOURCE: URINE Test Performed By: [facility] [address] [place] [address] Senior Cyber Security Analyst: Sven Wasserman III, M.D. See Below Normal [facility] BMPon 04-21-2022 Anion gap [Moles/Vol] 14.9 mmol/L Low 15-22 [facility] Comment on above: Performed By: #### L 200.0010 #### [facility] - LABORATORY [address] [place] [address] 29474 Calcium [Mass/Vol] 9.3 mg/dL Normal 8.8-10.2 [facility] Comment on above: Performed By: #### L 200.0010 #### [facility] - LAB[facility]ATORY [address] [place] [address] 46774 Chloride [Moles/Vol] 105 mmol/L Normal 98-107 [facility] Comment on above: Performed By: #### L 200.0010 #### ML - LABORATORY [address] [place] [address] 02809 CO2 [Moles/Vol] 24 mmol/L Normal 22-29 [facility] Comment on above: Performed By: #### L 200.0010 #### ML - LABORATORY [address] [place] [address] 49098 Creatinine [Mass/Vol] 1.33 mg/dL High 0.50-0.90 [facility] Comment on above: Performed By: #### L 200.0010 #### ML - LABORATORY [address] [place] [address] 39199 eGFR if AFR ELOISA 48 [facility] Comment on above: Result Comment: eGFR >= 60 Indicates normal kidney function. * eGFR IS AN ESTIMATE * (AFR ELOISA = ) (non-AFR AM = NON-) MDRD calculation used in the eGFR should not be used to dose medications. For further limitations of the eGFR please refer to the Physician Website or the National Kidney Disease Education Program website (www.nkdep.nih.gov). Performed By: #### L 200.0010 #### [facility] - [facility]ATORY [address] [place] [address] 49457 eGFR nonAFR Eloisa 39 Normal [facility] Comment on above: Performed By: #### L 200.0010 #### [facility] - [facility]ORY [address] [place] [address] 22695 Glucose [Mass/Vol] 99 mg/dL Normal 82-115 [facility] Comment on above: Performed By: #### L 200.0010 #### [facility] - LAB[facility]ATORY [address] [place] [address] 55394 Potassium [Moles/Vol] 3.9 mmol/L Normal 3.5-5.0 [facility] Comment on above: Performed By: #### L 200.0010 #### [facility] - LAB[facility]ATORY [address] [place] [address] 26785 Sodium [Moles/Vol] 140 mmol/L Normal 135-145 [facility] Comment on above: Performed By: #### L 200.0010 #### [facility] - LAB[facility]ATORY [address] [place] [address] 64766 Urea nitrogen [Mass/Vol] 8 mg/dL Normal 8-23 [facility] Comment on above: Performed By: #### L 200.0010 #### [facility] - LAB[facility]ATORY [address] [place] [address] 27712 Basic metabolic 2000 panelon 04-21-2022 Anion gap [Moles/Vol] 14.9 mmol/L Low 15 - 2 2 mmol/L [facility] Calcium [Mass/Vol] 9.3 mg/dL 8.8 - 10. 2 mg/dL [facility] Chloride [Moles/Vol] 105 mmol/L 98 - 10 7 mmol/L [facility] CO2 [Moles/Vol] 24 mmol/L 22 - 29 mmol/L [facility] Creatinine [Mass/Vol] 1.33 mg/dL High 0.50 - 0.90 mg/dL [facility] eGFR-All Other Races [facility] GFR/1.73 sq M.predicted among blacks MDRD (S/P/Bld) [Vol rate/Area] 48 mL/min/{1.73_m2} [facility] Glucose [Mass/Vol] 99 mg/dL 82 - 115 mg/dL [facility] Potassium [Moles/Vol] 3.9 mmol/L 3.5 - 5.0 mmol/L [facility] Sodium [Moles/Vol] 140 mmol/L 135 - 145 mmol/L [facility] Urea nitrogen [Mass/Vol] 8 mg/dL 8 - 23 mg/dL [facility] CBCon 04-21-2022 BASO# 0.10 x10(3) Normal 0.00-0.10 [facility] Comment on above: Performed By: #### L 200.0010 #### [facility] - LABORATORY [address] [place] [address] 23372 Basophils/100 WBC (Bld) 1.0 % Normal 0.0-1.0 [facility] Comment on above: Performed By: #### L 200.0010 #### [facility] - LAB[facility]ATORY [address] [place] [address] 30975 EOS# 0.20 x10(3) Normal 0.00-0.54 [facility] Comment on above: Performed By: #### L 200.0010 #### [facility] - LAB[facility]ATORY [address] [place] [address] 22426 Eosinophils/100 WBC (Bld) 1.9 % Normal 0.5-4.9 [facility] Comment on above: Performed By: #### L 200.0010 #### [facility] - [facility]ATORY [address] [place] [address] 42307 Erythrocyte distribution width (RBC) [Ratio] 18.6 % High 12.5-15.7 [facility] Comment on above: Performed By: #### L 200.0010 #### [facility] - [facility]ATORY [address] [place] [address] 43639 Hematocrit (Bld) [Volume fraction] 34.3 % Low 36.0-48.0 [facility] Comment on above: Performed By: #### L 200.0010 #### [facility] - LAB[facility]ATORY [address] [place] [address] 17608 Hemoglobin (Bld) [Mass/Vol] 11.2 g/dL Low 12.0-16.0 [facility] Comment on above: Performed By: #### L 200.0010 #### [facility] - [facility] [address] [place] [address] 48413 LYMPH# 3.00 x10(3) Normal 1.00-3.50 [facility] Comment on above: Performed By: #### L 200.0010 #### ML [facility] [address] [place] [address] 12260 Lymphocytes/100 WBC (Bld) 36.6 % Normal 16.0-48.0 [facility] Comment on above: Performed By: #### L 200.0010 #### [facility] - [facility]ORY [address] [place] [address] 61126 MCH (RBC) [Entitic mass] 27.9 pg Low 28.5-32.9 [facility] Comment on above: Performed By: #### L 200.0010 #### ML [facility] [address] [place] [address] 23246 MCHC (RBC) [Mass/Vol] 32.8 g/dL Low 33.0-36.0 [facility] Comment on above: Performed By: #### L 200.0010 #### ML [facility] [address] [place] [address] 08632 MCV (RBC) [Entitic vol] 85.3 fL Normal 80.0-99.0 [facility] Comment on above: Performed By: #### L 200.0010 #### [facility] [address] [place] [address] 87770 MONO# 0.80 x10(3) Normal 0.30-0.80 [facility] Comment on above: Performed By: #### L 200.0010 #### ML [facility] [address] [place] [address] 94900 Monocytes/100 WBC (Bld) 9.3 % Normal 4.3-11.2 [facility] Comment on above: Performed By: #### L 200.0010 #### [facility] [address] [place] [address] 62186 NEUT# 4.20 x10(3) Normal 1.40-6.50 [facility] Comment on above: Performed By: #### L 200.0010 #### [facility] [address] [place] [address] 42326 Neutrophils/100 WBC (Bld) 51.2 % Normal 45.0-73.0 [facility] Comment on above: Performed By: #### L 200.0010 #### [facility] - [facility] [address] [place] [address] 28182 Platelet mean volume (Bld) [Entitic vol] 9.0 fL Normal 7.5-9.5 [facility] Comment on above: Performed By: #### L 200.0010 #### [facility] - [facility] [address] [place] [address] 20478 PLT 320 X10(3) Normal 150-450 [facility] Comment on above: Performed By: #### L 200.0010 #### ML - LABORATORY [address] [place] [address] 53251 RBC 4.02 x10(6) Normal 3.30-5.00 [facility] Comment on above: Performed By: #### L 200.0010 #### ML - LABORATORY [address] [place] [address] 14208 WBC 8.1 x10(3) Normal 4.5-10.0 [facility] Comment on above: Performed By: #### L 200.0010 #### ML - LABORATORY [address] [place] [address] 10006 CBC W Auto Differential pane l (Bld)on 04-21-2022 BASO ABS 0.10 x10(3) 0.00 - 0.10 x10(3) [facility] Basophils/100 WBC (Bld) 1.0 % 0.0 - 1.0 % [facility] EOS ABS 0.20 x10(3) 0.00 - 0.54 x10(3) [facility] Eosinophils/100 WBC (Bld) 1.9 % 0.5 - 4.9 % [facility] Erythrocyte distribution width (RBC) [Ratio] 18.6 % High 12.5 - 15.7 % [facility] Hematocrit (Bld) [Volume fraction] 34.3 % Low 36.0 - 48.0 % [facility] Hemoglobin (Bld) [Mass/Vol] 11.2 g/dL Low 12.0 - 16.0 g/dL [facility] LYMPH ABS 3.00 x10(3) 1.00 - 3.50 x10(3) [facility] Lymphocytes/100 WBC (Bld) 36.6 % 16.0 - 48.0 % [facility] MCH (RBC) [Entitic mass] 27.9 pg Low 28.5 - 32.9 pg [facility] MCHC (RBC) [Mass/Vol] 32.8 g/dL Low 33.0 - 36.0 g/dL [facility] MCV (RBC) [Entitic vol] 85.3 fL 80.0 - 99.0 fl [facility] MONO ABS 0.80 x10(3) 0.30 - 0.80 x10(3) [facility] Monocytes/100 WBC (Bld) 9.3 % 4.3 - 11.2 % [facility] Neutrophil Ab 4.20 x10(3) 1.40 - 6.50 x10(3) [facility] Neutrophils/100 WBC (Bld) 51.2 % 45.0 - 73.0 % [facility] Platelet Count 320 X10(3) 150 - 450 X10(3) [facility] Platelet mean volume (Bld) [Entitic vol] 9.0 fL 7.5 - 9.5 fl [facility] RBC 4.02 x10(6) 3.30 - 5.00 x10(6) [facility] WBC 8.1 x10(3) 4.5 - 10.0 x10(3) [facility] CT ABD/PEL W CONTRASTon 08-0 CT ABD/PEL W CONTRAST [place] [address] Name: KAITLYN ESCOBAR I Phys: MANUEL BARBOSA D.O. : [birth year] Age: 71 Sex: F Acct: [id number] Loc: ED Exam Date: 04/21/22 Status: [facility] Radiology No.: Unit Number: [id number] Exam # Type/Exam [id number] CT / CT ABD/PEL W CONTRAST EXAMINATION: CT OF THE ABDOMEN AND PELVIS WITH CONTRAST04/21/2022 11:44 am TECHNIQUE: CT of the abdomen and pelvis was performed with the administration of intravenous contrast. Multiplanar reformatted images are provided for review. Automated exposure control, iterative reconstruction, and/or weight based adjustment of the mA/kV was utilized to reduce the radiation dose to as low as reasonably achievable. COMPARISON: CT 01/28/2022 HISTORY: ORDERING SYSTEM PROVIDED HISTORY: TECHNOLOGIST PROVIDED HISTORY: Reason for Exam: ABDOMINAL PAIN FINDINGS: There is small-bowel surgery with no sign of bowel obstruction or perforation. No obvious extraluminal fluid collections, ascites or free air. Grossly normal stomach. No significant diverticulosis or diverticulitis of the colon. No signs of acute appendicitis. Stable common duct dilatation most likely physiologic related to age and cholecystectomy. Stable small low-density liver lesions consistent with benign cysts requiring no follow-up imaging. No suspicious liver lesion. The spleen, pancreas, adrenal glands and kidneys show no acute or contributory abnormality. Simple right renal cyst of no clinical significance. No ureteral dilatation or stone. No retroperitoneal or mesenteric lymphadenopathy. Normal caliber aorta. Pelvic images show other bladder. The uterus is absent. No adnexal or inguinal mass. No acute skeletal abnormality. Degenerative changes in the hips and spine. Included lung show no acute process. IMPRESSION: No acute abnormality is seen. No sign of bowel obstruction. Postop changes in the bowel. Other stable incidental findings that require no follow-up imaging. Electronically signed By Flora Bledsoe MD 04/21/2022 11:50:31 AM EST Workstation ID : [id number] < > Reported By: FLORA BLEDSOE M.D. Signed In Fluency By: FLORA BLEDSOE M.D. << Signature on File>> Reported By: FLORA BLEDSOE M.D. Signed By: FLORA BLEDSOE M.D. Tests performed at: [address] [address] Normal [facility] CT ABD/PEL W IVCONon 022 [facility] EMERGENCY DEPARTMENT REPORTo n 04-21-2022 [place]ER[place]ENC[place] [address] HEALTH INFORMATION MANAGEMENT EMERGENCY DEPARTMENT REPORT Patient: KAITLYN ESCOBAR I MANUEL BARBOSA D.O. [id number] [age] F Status: DEP ER ED Date of Service: 04/21/22 CHIEF COMPLAINT: Abdominal pain. HISTORY OF CHIEF COMPLAINT: This is a 71-year-old female who was having abdominal pain. She had nausea, vomiting, and diarrhea actually. Usually she gets bowel obstructions pretty regular. She said that she did not throw up this morning. She threw up yesterday. She said that Sunday she was having a lot of pain and then had a large diarrhea. She said the pain is a little better this morning, but still hurting her. She says that she is worried she has another bowel obstruction. She states that she has had no fevers or chills with this. No dysuria or frequency. The patient states that she has actually had loose stools instead of hard stools , but did pass a bowel movement this morning. PAST MEDICAL HISTORY: Denied. SURGICAL HISTORY: Hysterectomy, cholecystectomy, a bowel resection. SOCIAL HISTORY: She is a nonsmoker, nondrinker. Denies illegal drug use. REVIEW OF SYSTEMS: She denies headaches, blurred vision, sore throat, or neck pain. She denies any chest pain or palpitations, short of breath or cough. Having this abdominal pain, kind of just diffuse crampy pain. She has had nausea, vomiting, but not today. She has had diarrhea today. She had diarrhea yesterday. No bloody stools or black stools. 10-point review of systems otherwise negative. PHYSICAL EXAMINATION: GENERAL: The patient is awake, alert, oriented x3, no acute distress. Appears well developed, well nourished. HEENT: Trachea midline. HEART: Regular rate and rhythm. LUNGS: Clear bilaterally. ABDOMEN: Soft, but diffusely tender without rebound, guarding, or peritoneal signs. EXTREMITIES: Without edema or cyanosis. SKIN: Without rashes, negative Homans. NEURO: No focal deficits. Strength 5/5. LABORATORY WORK: White count is 8.1 with hemoglobin 11.2, platelet count 320,000. Chemistry; sodium is 140, potassium 3.9, chloride of 105, and bicarb of 24 with a BUN of 8, creatinine of 1.33. Urine is negative for infection. Patient's COVID is negative. The patient's CT abdomen and pelvis showed no acute process today. So at this time, I went back and talked to her. She is feeling better after little medicines, fluids, and pain meds. She has negative workup here. I told her there was not really any reason we need to admit her to the hospital. I think she can probably go home. The patient is going to be given some Bentyl for cramping at home, some Zofran for nausea. I did student counselor her if she has worsening symptoms, increasing pain, to please return back to the emergency room. We will have her follow up as an outpatient with Dr. Moseley and discharged in stable condition. IMPRESSION: 1. Abdominal pain. 2. Diarrhea. No sign of bowel obstruction today. No recent antibiotic use and she said the stools were not liquidy this morning, so she seems like they are improving, so I did not get a stool culture. Report#: Dict ID [id number] / Int ID [id number] 04/21/22 1705 MANULE BARBOSA D.O. cc: MANUEL BARBOSA D.O.; KENTRELL DHALIWAL II, M.D. << Signature on File>> Reported By: MANUEL BARBOSA D.O. Signed By: MANUEL BARBOSA D.O. Tests performed at: [place] [address] Normal [facility] HEPATIC PANELon 04-21-2022 A:G RATIO 1.33 Normal 1.1-2.5 [facility] Comment on above: Performed By: #### L 200.0010 #### ML - LABORATORY [address] [place] [address] 97353 Albumin [Mass/Vol] 4.0 g/dL Normal 3.5-5.2 [facility] Comment on above: Performed By: #### L 200.0010 #### ML - LABORATORY [address] [place] [address] 67766 ALK. PHOS 111 U/L High 35-105 [facility] Comment on above: Performed By: #### L 200.0010 #### ML - LABORATORY [address] [place] [address] 72747 ALT [Catalytic activity/Vol] 15 U/L Normal 5-33 [facility] Comment on above: Performed By: #### L 200.0010 #### ML - LABORATORY [address] [place] [address] 40913 AST [Catalytic activity/Vol] 22 U/L Normal 5-32 [facility] Comment on above: Performed By: #### L 200.0010 #### ML - LABORATORY [address] [place] [address] 60941 Bilirubin [Mass/Vol] 0.3 mg/dL Normal 0.2-1.2 [facility] Comment on above: Performed By: #### L 200.0010 #### ML - LABORATORY [address] [place] [address]30 DIRECT BILIRUBI <0.2 Normal 0.0-0.3 [facility] Comment on above: Performed By: #### L 200.0010 #### ML - LABORATORY [address] [place] [address] 96867 Globulin (S) [Mass/Vol] 3.0 g/dL Normal 1.5-4.5 [facility] Comment on above: Performed By: #### L 200.0010 #### ML - LABORATORY [address] [place] [address] 23157 Protein [Mass/Vol] 7.0 g/dL Normal 6.4-8.3 [facility] Comment on above: Performed By: #### L 200.0010 #### ML - LABORATORY [address] [place] [address] 43644 Hepatic function 2000 [facility] 04-21-2022 Albumin [Mass/Vol] 4.0 g/dL 3.5 - 5.2 g/dL [facility] Albumin/Globulin [Mass ratio] 1.33 {ratio} 1.1 - 2.5 [facility] ALP [Catalytic activity/Vol] 111 U/L High 35 - 105 U/L [facility] ALT [Catalytic activity/Vol] 15 U/L 5 - 33 U/L [facility] AST [Catalytic activity/Vol] 22 U/L 5 - 32 U/L [facility] Bilirubin [Mass/Vol] 0.3 mg/dL 0.2 - 1 .2 mg/dL [facility] Direct Bilirubin <0.2 0.0 - 0.3 mg/dL [facility] Globulin (S) [Mass/Vol] 3.0 g/dL 1.5 - 4.5 g/dL [facility] Protein [Mass/Vol] 7.0 g/dL 6.4 - 8.3 g/dL [facility] LIPASEon 04-21-2022 Lipase [Catalytic activity/Vol] 23 U/L Normal 13-60 [facility] Comment on above: Performed By: #### L 200.0010 #### ML [facility] [address] [place] [address] 25455 LIPASE BLDon 04-21-2022 Lipase [Catalytic activity/Vol] 23 U/L 13 - 60 U/L [facility] RAPID COVIDon 04-21-2022 SARS-CoV-2 (COVID-19) RNA RENATA+probe Ql (Unsp spec) Negative Normal NEGATIVE [facility] Comment on above: Result Comment: THIS TEST HAS BEEN AUTHORIZED BY FDA UNDER AN EMERGENCY USE AUTHORIZATION (EUA). NEGATIVE: NEGATIVE FOR COVID19 (SARS-CoV-2) BY PCR POSITIVE: POSITIVE FOR COVID19 (SARS-CoV-2) BY PCR PRESUMPTIVE POSITIVE: POSITIVE BY SINGLE WOO SARS-CoV TARGET. SARS-CoV-1 CANNOT BE EXCLUDED, BUT IS NOT CURRENTLY CIRCULATING IN [place]. Performed By: #### L 200.0010 #### ML [facility] [address] [place] [address] 51071 SARS-CoV-2 (COVID-19) RNA NA A+probe Ql (Resp)on 04-21-2022 SARS-CoV-2 (COVID-19) RNA RENATA+probe Ql (Unsp spec) Negative NEGATIVE [facility] UA W/C&Son 04-21-2022 Bilirubin Ql (U) Negative Normal NEGATIVE [facility] Comment on above: Order Comment: Urine Specimen Source+ CLEAN CATCH Performed By: #### L 200.3001 #### ML [facility] [address] [place] [address] 90940 Color (U) YELLOW Normal YELLOW [facility] Comment on above: Order Comment: Urine Specimen Source+ CLEAN CATCH Performed By: #### L 200.3001 #### ML - LABORATORY [address] [place] [address] 62080 Glucose Ql (U) Negative Normal NEGATIVE [facility] Comment on above: Order Comment: Urine Specimen Source+ CLEAN CATCH Performed By: #### L 200.3001 #### ML - LABORATORY [address] [place] [address] 39977 Hemoglobin Ql (U) Negative Normal NEGATIVE [facility] Comment on above: Order Comment: Urine Specimen Source+ CLEAN CATCH Performed By: #### L 200.3001 #### ML - LABORATORY [address] [place] [address] 02305 Leukocyte esterase Test strip Ql (U) Negative Normal NEGATIVE [facility] Comment on above: Order Comment: Urine Specimen Source+ CLEAN CATCH Performed By: #### L 200.3001 #### ML - LABORATORY [address] [place] [address] 44964 Nitrite Ql (U) Negative Normal NEGATIVE [facility] Comment on above: Order Comment: Urine Specimen Source+ CLEAN CATCH Performed By: #### L 200.3001 #### ML - LABORATORY [address] [place] [address] 75031 pH (U) 6.0 [pH] Normal 5.0-8.0 [facility] Comment on above: Order Comment: Urine Specimen Source+ CLEAN CATCH Performed By: #### L 200.3001 #### ML - LABORATORY [address] [place] [address] 13853 Protein Ql (U) Negative Normal NEGATIVE [facility] Comment on above: Order Comment: Urine Specimen Source+ CLEAN CATCH Performed By: #### L 200.3001 #### ML - LABORATORY [address] [place] [address] 01210 URINE APPEARANC CLEAR Normal CLEAR [facility] Comment on above: Order Comment: Urine Specimen Source+ CLEAN CATCH Performed By: #### L 200.3001 #### ML - [facility] LABORATORY [address] [place] [address] 08597 URINE KETONE Negative Normal NEGATIVE [facility] Comment on above: Order Comment: Urine Specimen Source+ CLEAN CATCH Performed By: #### L 200.3001 #### ML - LABORATORY [address] [place] [address] URINE SPECIFIC 1.010 Normal 1.001-1.035 [facility] Comment on above: Order Comment: Urine Specimen Source+ CLEAN CATCH Performed By: #### L 200.3001 #### ML - LABORATORY [address] [place] [address] 34306 URINE UROBILINO 0.2 EU/DL Normal 0.2-1.0 [facility] Comment on above: Order Comment: Urine Specimen Source+ CLEAN CATCH Performed By: #### L 200.3001 #### ML - LABORATORY [address] [place] [address] 17724 Urinalysis complete panel (U )on 04-21-2022 Appearance (U) CLEAR CLEAR [facility] Bilirubin, Urine Negative NEGATIVE [facility] Blood, Urine Negative NEGATIVE [facility] Color (U) YELLOW YELLOW [facility] Glucose Ql (U) Negative NEGATIVE MG/DL [facility] Ketones Ql (U) Negative NEGATIVE MG/DL [facility] Leukocytes Negative NEGATIVE [facility] Nitrites Urine Negative NEGATIVE [facility] pH (U) 6.0 [pH] 5.0 - 8.0 [facility] Protein.monoclonal (U) [Mass/Vol] Negative NEGATIVE MG/DL [facility] Specific [place], Ur 1.010 1.001 - 1.035 [facility] Urobilinogen, Urine 0.2 EU/DL 0.2 - 1. 0 EU/DL [facility] BMPon 04-19-2022 Anion gap [Moles/Vol] 20.2 mmol/L Normal 15-22 [facility] Comment on above: Performed By: #### L 200.3190, L200.3001 #### ML - LABORATORY [address] [place] [address] Calcium [Mass/Vol] 9.7 mg/dL Normal 8.8-10.2 [facility] Comment on above: Performed By: #### L 200.3190, L200.3001 #### ML - LABORATORY [address] [place] [address] Chloride [Moles/Vol] 104 mmol/L Normal 98-107 [facility] Comment on above: Performed By: #### L 200.3190, L200.3001 #### - LABORATORY [address] [place] [address] CO2 [Moles/Vol] 20 mmol/L Low 22-29 [facility] Comment on above: Performed By: #### L 200.3190, L200.3001 #### ML - LABORATORY [address] [place] [address] 69671 Creatinine [Mass/Vol] 1.35 mg/dL High 0.50-0.90 [facility] Comment on above: Performed By: #### L 200.3190, L200.3001 #### - LABORATORY [address] [place] [address] 06164 eGFR if AFR ELOISA 47 [facility] Comment on above: Result Comment: eGFR >= 60 Indicates normal kidney function. * eGFR IS AN ESTIMATE * (AFR ELOISA = ) (non-AFR AM = NON-) MDRD calculation used in the eGFR should not be used to dose medications. For further limitations of the eGFR please refer to the Physician Website or the National Kidney Disease Education Program website (www.nkdep.nih.gov). Performed By: #### L 200.3190, L200.3001 #### - LABORATORY [address] [place] [address] 03061 eGFR nonAFR Eloisa 39 [facility] Comment on above: Performed By: #### L 200.3190, L200.3001 #### - LABORATORY [address] [place] [address] Glucose [Mass/Vol] 99 mg/dL Normal 82-115 [facility] Comment on above: Performed By: #### L 200.3190, L200.3001 #### - LABORATORY [address] [place] [address] Potassium [Moles/Vol] 4.2 mmol/L Normal 3.5-5.0 [facility] Comment on above: Performed By: #### L 200.3190, L200.3001 #### ML - [facility] LABORATORY [address] [place] [address] Sodium [Moles/Vol] 140 mmol/L Normal 135-145 [facility] Comment on above: Performed By: #### L 200.3190, L200.3001 #### ML - [facility] LABORATORY [address] [place] [address] Urea nitrogen [Mass/Vol] 10 mg/dL Normal 8-23 [facility] Comment on above: Performed By: #### L 200.3190, L200.3001 #### ML - [facility] LABORATORY [address] [place] [address] Basic metabolic 2000 panelon 04-19-2022 Anion gap [Moles/Vol] 20.2 mmol/L 15 - 2 2 mmol/L [facility] Calcium [Mass/Vol] 9.7 mg/dL 8.8 - 10. 2 mg/dL [facility] Chloride [Moles/Vol] 104 mmol/L 98 - 10 7 mmol/L [facility] CO2 [Moles/Vol] 20 mmol/L Low 22 - 29 mmol/L [facility] Creatinine [Mass/Vol] 1.35 mg/dL High 0.50 - 0.90 mg/dL [facility] eGFR-All Other Races 39 [facility] GFR/1.73 sq M.predicted among blacks MDRD (S/P/Bld) [Vol rate/Area] 47 mL/min/{1.73_m2} [facility] Glucose [Mass/Vol] 99 mg/dL 82 - 115 mg/dL [facility] Potassium [Moles/Vol] 4.2 mmol/L 3.5 - 5.0 mmol/L [facility] Sodium [Moles/Vol] 140 mmol/L 135 - 145 mmol/L [facility] Urea nitrogen [Mass/Vol] 10 mg/dL 8 - 23 mg/dL [facility] CBCon 04-19-2022 BASO# 0.10 x10(3) Normal 0.00-0.10 [facility] Comment on above: Performed By: #### L 200.0010 #### ML - LABORATORY [address] [place] [address] 01322 Basophils/100 WBC (Bld) 0.6 % Normal 0.0-1.0 [facility] Comment on above: Performed By: #### L 200.0010 #### ML - LABORATORY [address] [place] [address] 93845 EOS# 0.00 x10(3) Normal 0.00-0.54 [facility] Comment on above: Performed By: #### L 200.0010 #### ML - LABORATORY [address] [place] [address] 22074 Eosinophils/100 WBC (Bld) 0.5 % Normal 0.5-4.9 [facility] Comment on above: Performed By: #### L 200.0010 #### ML - LABORATORY [address] [place] [address] 89893 Erythrocyte distribution width (RBC) [Ratio] 18.9 % High 12.5-15.7 [facility] Comment on above: Performed By: #### L 200.0010 #### ML - LABORATORY [address] [place] [address] 08721 Hematocrit (Bld) [Volume fraction] 34.8 % Low 36.0-48.0 [facility] Comment on above: Performed By: #### L 200.0010 #### ML - LABORATORY [address] [place] [address] 77001 Hemoglobin (Bld) [Mass/Vol] 11.6 g/dL Low 12.0-16.0 [facility] Comment on above: Performed By: #### L 200.0010 #### ML - LABORATORY [address] [place] [address] 71011 LYMPH# 2.60 x10(3) Normal 1.00-3.50 [facility] Comment on above: Performed By: #### L 200.0010 #### ML - LABORATORY [address] [place] [address] 83448 Lymphocytes/100 WBC (Bld) 28.4 % Normal 16.0-48.0 [facility] Comment on above: Performed By: #### L 200.0010 #### ML - [facility] [address] [place] [address] 01435 MCH (RBC) [Entitic mass] 28.3 pg Low 28.5-32.9 [facility] Comment on above: Performed By: #### L 200.0010 #### ML [facility] [address] [place] [address] 74078 MCHC (RBC) [Mass/Vol] 33.4 g/dL Normal 33.0-36.0 [facility] Comment on above: Performed By: #### L 200.0010 #### ML [facility] [address] [place] [address] 23891 MCV (RBC) [Entitic vol] 84.7 fL Normal 80.0-99.0 [facility] Comment on above: Performed By: #### L 200.0010 #### ML [facility] [address] [place] [address] 36108 MONO# 0.70 x10(3) Normal 0.30-0.80 [facility] Comment on above: Performed By: #### L 200.0010 #### ML [facility] [address] [place] [address] 05686 Monocytes/100 WBC (Bld) 7.9 % Normal 4.3-11.2 [facility] Comment on above: Performed By: #### L 200.0010 #### ML [facility] [address] [place] [address] 75228 NEUT# 5.80 x10(3) Normal 1.40-6.50 [facility] Comment on above: Performed By: #### L 200.0010 #### ML [facility] [address] [place] [address] 81259 Neutrophils/100 WBC (Bld) 62.6 % Normal 45.0-73.0 [facility] Comment on above: Performed By: #### L 200.0010 #### ML [facility] [address] [place] [address] 65714 Platelet mean volume (Bld) [Entitic vol] 8.8 fL Normal 7.5-9.5 [facility] Comment on above: Performed By: #### L 200.0010 #### ML - LABORATORY [address] [place] [address] PLT 366 X10(3) Normal 150-450 [facility] Comment on above: Performed By: #### L 200.0010 #### ML - LABORATORY [address] [place] [address] 17075 RBC 4.12 x10(6) Normal 3.30-5.00 [facility] Comment on above: Performed By: #### L 200.0010 #### ML - LABORATORY [address] [place] [address] 53035 WBC 9.3 x10(3) Normal 4.5-10.0 [facility] Comment on above: Performed By: #### L 200.0010 #### ML - LABORATORY [address] [place] [address] 23899 CBC W Auto Differential pane l (Bld)on 04-19-2022 BASO ABS 0.10 x10(3) 0.00 - 0.10 x10(3) [facility] Basophils/100 WBC (Bld) 0.6 % 0.0 - 1.0 % [facility] EOS ABS 0.00 x10(3) 0.00 - 0.54 x10(3) [facility] Eosinophils/100 WBC (Bld) 0.5 % 0.5 - 4.9 % [facility] Erythrocyte distribution width (RBC) [Ratio] 18.9 % High 12.5 - 15.7 % [facility] Hematocrit (Bld) [Volume fraction] 34.8 % Low 36.0 - 48.0 % [facility] Hemoglobin (Bld) [Mass/Vol] 11.6 g/dL Low 12.0 - 16.0 g/dL [facility] LYMPH ABS 2.60 x10(3) 1.00 - 3.50 x10(3) [facility] Lymphocytes/100 WBC (Bld) 28.4 % 16.0 - 48.0 % [facility] MCH (RBC) [Entitic mass] 28.3 pg Low 28.5 - 32.9 pg [facility] MCHC (RBC) [Mass/Vol] 33.4 g/dL 33.0 - 36.0 g/dL [facility] MCV (RBC) [Entitic vol] 84.7 fL 80.0 - 99.0 fl [facility] MONO ABS 0.70 x10(3) 0.30 - 0.80 x10(3) [facility] Monocytes/100 WBC (Bld) 7.9 % 4.3 - 11.2 % [facility] Neutrophil Ab 5.80 x10(3) 1.40 - 6.50 x10(3) [facility] Neutrophils/100 WBC (Bld) 62.6 % 45.0 - 73.0 % [facility] Platelet Count 366 X10(3) 150 - 450 X10(3) [facility] Platelet mean volume (Bld) [Entitic vol] 8.8 fL 7.5 - 9.5 fl [facility] RBC 4.12 x10(6) 3.30 - 5.00 x10(6) [facility] WBC 9.3 x10(3) 4.5 - 10.0 x10(3) [facility] HEPATIC PANELon 04-19-2022 A:G RATIO 1.33 Normal 1.1-2.5 [facility] Comment on above: Performed By: #### L 200.3190, L200.3001 #### [facility] - LABORATORY [address] [place] [address] 28680 Albumin [Mass/Vol] 4.4 g/dL Normal 3.5-5.2 [facility] Comment on above: Performed By: #### L 200.3190, L200.3001 #### [facility] - LABORATORY [address] [place] [address] 80814 ALK. PHOS 118 U/L High 35-105 [facility] Comment on above: Performed By: #### L 200.3190, L200.3001 #### [facility] - LABORATORY [address] [place] [address] 08731 ALT [Catalytic activity/Vol] 17 U/L Normal 5-33 [facility] Comment on above: Performed By: #### L 200.3190, L200.3001 #### [facility] - LABORATORY [address] [place] [address] 74948 AST [Catalytic activity/Vol] 26 U/L Normal 5-32 [facility] Comment on above: Performed By: #### L 200.3190, L200.3001 #### [facility] - LABORATORY [address] [place] [address] 23232 Bilirubin [Mass/Vol] 0.4 mg/dL Normal 0.2-1.2 [facility] Comment on above: Performed By: #### L 200.3190, L200.3001 #### [facility] - LABORATORY [address] [place] [address] 79443 DIRECT BILIRUBI <0.2 Normal 0.0-0.3 [facility] Comment on above: Performed By: #### L 200.3190, L200.3001 #### [facility] - LABORATORY [address] [place] [address] 82963 Globulin (S) [Mass/Vol] 3.3 g/dL Normal 1.5-4.5 [facility] Comment on above: Performed By: #### L 200.3190, L200.3001 #### [facility] - LABORATORY [address] [place] [address] 57550 Protein [Mass/Vol] 7.7 g/dL Normal 6.4-8.3 [facility] Comment on above: Performed By: #### L 200.3190, L200.3001 #### [facility] - LABORATORY [address] [place] [address] 01137 Hepatic function [address] [place] [address] 04-19-2022 Albumin [Mass/Vol] 4.4 g/dL 3.5 - 5.2 g/dL [facility] Albumin/Globulin [Mass ratio] 1.33 {ratio} 1.1 - 2.5 [facility] ALP [Catalytic activity/Vol] 118 U/L High 35 - 105 U/L [facility] ALT [Catalytic activity/Vol] 17 U/L 5 - 33 U/L [facility] AST [Catalytic activity/Vol] 26 U/L 5 - 32 U/L [facility] Bilirubin [Mass/Vol] 0.4 mg/dL 0.2 - 1 .2 mg/dL [facility] Direct Bilirubin <0.2 0.0 - 0.3 mg/dL [facility] Globulin (S) [Mass/Vol] 3.3 g/dL 1.5 - 4.5 g/dL [facility] Protein [Mass/Vol] 7.7 g/dL 6.4 - 8.3 g/dL [facility] LIPID PANELon 04-19-2022 Cholesterol [Mass/Vol] 267 mg/dL High 130-200 Un [facility] Comment on above: Performed By: #### L 200.3190, L200.3001 #### [facility] - LABORATORY [address] [place] [address] 49760 Cholesterol in HDL [Mass/Vol] 56 mg/dL Normal [facility] Comment on above: Result Comment: Yen onal Cholesterol Education Program (NCEP) guidelines: <40 mg/dL: Low HDL-Cholesterol(major risk factor for CHD) > or = 60 mg/dL: High HDL-Cholesterol(negative risk factor for CHD) HDL-cholesterol is affected by a number of factors, e.g., smoking, exercise, hormones, sex, and age. 4th Generation Test; Results may be approximately 7% lower than previous values. Performed By: #### L 200.3190, L200.3001 #### [facility] - LABORATORY [address] [place] [address]1908 Cholesterol in LDL [Mass/Vol] 177 mg/dL Normal [facility] Comment on above: Result Comment: LDL: OPTIMAL FOR PEOPLE AT VERY HIGH RISK <70 OPTIMAL <100 NEAR OPTIMAL 100-129 BORDERLINE HIGH 130-159 HIGH 160-189 VERY HIGH >=190 Source: 2009 NCEP ATP III, ADA Guidelines Reviewed: December, Performed By: #### L 200.3190, L200.3001 #### [facility] - LABORATORY [address] [place] [address] 96956 Cholesterol in VLDL [Mass/Vol] 34 mg/dL Normal 6-40 [facility] Comment on above: Performed By: #### L 200.3190, L200.3001 #### [facility] - LABORATORY [address] [place] [address] 78088 LDL/HDL RATIO 3.2 Normal [facility] Comment on above: Performed By: #### L 200.3190, L200.3001 #### [facility] - LABORATORY [address] [place] [address] 80856 Triglyceride [Mass/Vol] 169 mg/dL Normal U [facility] Comment on above: Result Comment: TRIG : DESIRABLE: <150 mg/dL Performed By: #### L 200.3190, L200.3001 #### ML - [facility] [address] [place] [address] Lipid 1996 panelon Cholesterol [Mass/Vol] 267 mg/dL High 130 - 200 mg/dL [facility] Cholesterol in HDL [Mass/Vol] 56 mg/dL [facility] Cholesterol in LDL [Mass/Vol] 177 mg/dL [facility] LDL:HDL Ratio 3.2 [facility] Triglyceride [Mass/Vol] 169 mg/dL [facility] VLDL Cholesterol 34 mg/dL 6 - 40 mg/dL [facility] TSHon 04-19-2022 TSH 2.58 uIU/mL Normal 0.270-4.200 [facility] Comment on above: Performed By: #### L 200.3190, L200.3001 #### ML - [facility] [address] [place] [address] TSH Qnon 04-19-2022 TSH 2.58 uIU/mL 0.270 - 4.200 uIU/mL [facility] CNPNon 03-01-2022 CNPN Telephone ([place]) KAITLYN ESCOBAR I ([id number]) 1950 F Date Time Provider Department 03/01/22 KENTRELL DHALIWAL II During your visit today, we recorded the following information about you: Garima Drew MA 03/01/2022 11:08 AM Signed Patient called stating she thought Dr. Dhaliwal was going to call something to her Pharmacy for her pain. She wanted to verify with Dr. Dhaliwal prior to making the trip to the Pharmacy. Please advise LISA Rasmussen II, MD 03/01/2022 11:45 AM Signed I did send in Zoloft to try. Is she referring to abdominal pain or joint or muscle pain? Garima Drew MA 03/01/2022 3:51 PM Signed Called patient to clarify area of pain. Patient states she is having abdominal pain. Patient states I am taking Celexa but it is not helping the pain. I informed patient that Celexa is not for pain and I did not see it on her med list. I believe she may be referring to Celebrex. Please advise LISA Rasmussen II, MD 03/01/2022 4:13 PM Signed If the Celebrex is not helping then stop The Zoloft may actually help the abdominal pain If she wants to try something else then she needs to call the inside horticultural specialty grower for their recommendations on what to prescribe as the rest of the options left to try may affect her bowels Garima Drew MA 03/02/2022 9:25 AM Signed Called patient to inform of Dr. Dhaliwal message. Patient states understanding and will call her Gastro to see what medication he would recommend. Garima Drew MA Allergies As of Date: 03/01/2022 Noted Allergy Reaction LATEX 06/22/2020 10 - Anaphylaxis CODEINE 06/22/2020 6 - Diarrhea COMPAZINE (PROCHLORPERAZINE) 06/22/2020 17 - Myalgia LEVAQUIN (LEVOFLOXACIN) 06/22/2020 6 - Diarrhea OMNICEF (CEFDINIR) 06/22/2020 6 - Diarrhea PREDNISONE 08/30/2021 8 - GI Upset [id number] REDUCTASE INHIBIT*06/22/2020 6 - Diarrhea SULFA (SULFONAMIDE ANTIBIOTICS) 06/15/2020 14 - Other: See Comments Comments: Leg pain Date Reviewed: 02/28/2022 Reviewed by: Kentrell Dhaliwal II, MD - Fully Assessed Reason for Visit: Patient Question [1477] Prescriptions as of 03/02/2022 - zolpidem (AMBIEN) 10 mg Take 1 tablet by mouth at bedtime as needed for up to 30 days. For Insomnia - sertraline (ZOLOFT) 50 mg tablet Take 1 tablet by mouth once daily. - ALPRAZolam (XANAX) 1 mg tablet Take 1 tablet by mouth every 12 hours as needed for up to 30 days. - docusate sodium (COLACE) 100 mg capsule Take 1 capsule by mouth twice daily. - simethicone 250 mg cap Take 1 capsule by mouth twice daily. - traMADol (ULTRAM) 50 mg tablet - esomeprazole (NEXIUM) 20 mg capsule TAKE 1 CAPSULE BY MOUTH DAILY (6 AM) - apixaban (ELIQUIS) 5 mg tab(s) Take 1 tablet by mouth twice daily. - ondansetron (ZOFRAN) 8 mg tablet Take 1 tablet by mouth every 8 hours as needed for nausea/vomiting. - levothyroxine (SYNTHROID) 50 mcg tablet Take 1 tablet by mouth once daily. - tiZANidine HCl 4 mg capsule Take 4 mg by mouth three times daily as needed. 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] Diabetes (HCC) [E11.9] Anxiety and depression [F41.9, F32.A] Hypothyroidism, acquired [E03.9] 08/30/2021 Encounter Status:Closed by GARIMA DREW on 03/02/22 [facility] CNOVon 02-28-2022 [facility] Office Visit (MELISSA Devries) KAITLYN ESCOBAR I ([id number]) 1950 F Date Time Provider Department 02/28/22 2:20 PM KENTRELL DHALIWAL II During your visit today, we recorded the following information about you: Respiration Blood pressure Weight 14/minute 110/78 74.1 kg Kentrell Dhaliwal II, MD 03/06/2022 8:53 PM Signed Kentrell Dhaliwal II, MD [address], [place] [address] SUBJECTIVE Kaitlyn Escobar is a 71 year old female who presents with Hospital Follow Up (Bowel issues). HPI Patient is in today to follow-up her chronic problems including gastrointestinal issues for which she had hospital stay short time ago. She states she is feeling better and she would like to try a different medication for both anxiety and depression and gastrointestinal issues. She states that her sister takes Zoloft and she would like to consider trying this. She also would like to have prescription for Ambien for insomnia. Review of Systems Constitutional: Negative for activity change, appetite change, chills, diaphoresis, fatigue, fever and unexpected weight change. HENT: Negative for congestion, dental problem, ear pain, hearing loss, nosebleeds, postnasal drip, rhinorrhea, sinus pressure, sinus pain, sore throat, trouble swallowing and voice change. Eyes: Negative for discharge, redness and visual disturbance. Respiratory: Negative for apnea, cough, choking, chest tightness, shortness of breath, wheezing and stridor. Cardiovascular: Negative for chest pain, palpitations and leg swelling. Gastrointestinal: Negative for abdominal distention, abdominal pain, blood in stool, constipation, diarrhea, nausea and vomiting. Endocrine: Negative for cold intolerance, heat intolerance, polydipsia, polyphagia and polyuria. Genitourinary: Negative for decreased urine volume, difficulty urinating, dysuria, enuresis, frequency, hematuria and urgency. Musculoskeletal: Negative for arthralgias, gait problem and myalgias. Skin: Negative for color change, pallor, rash and wound. Allergic/Immunologic: Negative for environmental allergies. Neurological: Negative for dizziness, tremors, syncope, facial asymmetry, speech difficulty, weakness, light-headedness, numbness and headaches. Hematological: Negative for adenopathy. Does not bruise/bleed easily. Psychiatric/Behavioral : Negative for agitation, behavioral problems, confusion, decreased concentration, dysphoric mood, hallucinations, self-injury, sleep disturbance and suicidal ideas. The patient is not nervous/anxious and is not hyperactive. PAST MEDICAL HISTORY Diagnosis Date - Anxiety and depression - Diabetes (HCC) - Drug-induced Parkinson's disease (HCC) - GERD (gastroesophageal reflux disease) - History of DVT (deep vein thrombosis) - IBS (irritable bowel syndrome) - Seizures (HCC) - Tremor PAST SURGICAL HISTORY Procedure Laterality Date - CHOLECYSTECTOMY HX - COLON SURGERY HX - HYSTERECTOMY HX - ROTATOR CUFF REPAIR Left - TONSILLECTOMY HX - WRIST SURGERY HX Right Social History Tobacco Use - Smoking status: Never Smoker - Smokeless tobacco: Never Used Vaping Use - Vaping Use: Never used Substance Use Topics - Alcohol use: Not Currently - Drug use: Never FAMILY HISTORY Problem Relation Age of Onset - Emphysema Mother - Heart disease Father The ROS, medical, surgical, family, and social history were reviewed by Kentrell Dhaliwal II, MD ALLERGIES Allergen Reactions - Latex Anaphylaxis - Codeine Diarrhea - Compazine [Prochlor* Myalgia - Levaquin [Levofloxa* Diarrhea - Omnicef [Cefdinir] Diarrhea - Prednisone GI Upset - [id number] Red* Diarrhea - Sulfa (Sulfonamide * Other: See Comments Leg pain Current Outpatient Medications Medication Sig - zolpidem (AMBIEN) 10 mg Take 1 tablet by mouth at bedtime as needed for up to 30 days. For Insomnia - ALPRAZolam (XANAX) 1 mg tablet Take 1 tablet by mouth every 12 hours as needed for up to 30 days. - docusate sodium (COLACE) 100 mg capsule Take 1 capsule by mouth twice daily. - simethicone 250 mg cap Take 1 capsule by mouth twice daily. - traMADol (ULTRAM) 50 mg tablet - esomeprazole (NEXIUM) 20 mg capsule TAKE 1 CAPSULE BY MOUTH DAILY (6 AM) - apixaban (ELIQUIS) 5 mg tab(s) Take 1 tablet by mouth twice daily. - ondansetron (ZOFRAN) 8 mg tablet Take 1 tablet by mouth every 8 hours as needed for nausea/vomiting. - levothyroxine (SYNTHROID) 50 mcg tablet Take 1 tablet by mouth once daily. - tiZANidine HCl 4 mg capsule Take 4 mg by mouth three times daily as needed. - sertraline (ZOLOFT) 50 mg tablet Take 1 tablet by mouth once daily. No current facility-administered medications for this visit. OBJECTIVE BP 110/78 (BP Site: Right Arm, BP Position: Sitting) Resp 14 Wt 163 lb 4.8 oz (74.1 kg) SpO2 98% BMI (more content not included)... Normal [facility] CNPNon 02-22-2022 CNPN Telephone ([place]) KAITLYN ESCOBAR I ([id number]) 1950 F Date Time Provider Department 02/22/22 ISRA GOLDMAN, KENTRELL NAQVI During your visit today, we recorded the following information about you: Liliana Sainz 02/22/2022 12:07 PM Signed Went to Dr Neff yesterday. 02/21/2022. He wants her to take 1 stool softener per day. She said the medication was called DOM, but we figured it is the Colace. She does need a refill of this, plus she is due for her Xanax. She is wondering if both scripts could be sent to [facility], so she can pick them up Sunday. Liliana Dhaliwal II, MD 02/22/2022 1:10 PM Signed Done Allergies As of Date: 02/22/2022 Noted Allergy Reaction LATEX 06/22/2020 10 - Anaphylaxis CODEINE 06/22/2020 6 - Diarrhea COMPAZINE (PROCHLORPERAZINE) 06/22/2020 17 - Myalgia LEVAQUIN (LEVOFLOXACIN) 06/22/2020 6 - Diarrhea OMNICEF (CEFDINIR) 06/22/2020 6 - Diarrhea PREDNISONE 08/30/2021 8 - GI Upset [id number] REDUCTASE INHIBIT*06/22/2020 6 - Diarrhea SULFA (SULFONAMIDE ANTIBIOTICS) 06/15/2020 14 - Other: See Comments Comments: Leg pain Date Reviewed: 01/17/2022 Reviewed by: Fifi Monahans, MA - Fully Assessed Reason for Visit: Patient Update [1234] Visit Diagnosis:Anxiety and depression [F41.9, F32.A] Order(s):ALPRAZolam (XANAX) 1 mg tabletTake 1 tablet by mouth every 12 hours as needed for up to 30 days.Disp: 60 tabletRfl: 0 docusate sodium (COLACE) 100 mg capsuleTake 1 capsule by mouth twice daily.Disp: 60 capsuleRfl: 5 Prescriptions as of 02/22/2022 - ALPRAZolam (XANAX) 1 mg tablet Take 1 tablet by mouth every 12 hours as needed for up to 30 days. - docusate sodium (COLACE) 100 mg capsule Take 1 capsule by mouth twice daily. - dicyclomine (BENTYL) 20 mg tablet Take 1 tablet by mouth three times daily for 7 days. - nitrofurantoin monohydrate and macrocrystal (MACROBID) 100 mg capsule Take 1 capsule by mouth twice daily for 7 days. - zolpidem (AMBIEN) 10 mg TAKE 1 TABLET BY MOUTH EVERY DAY AT BEDTIME NEEDED FOR INSOMNIA - alprazolam (XANAX ORAL) Take by mouth. - hyoscyamine (LEVSIN) 0.125 mg tablet Take 1 tablet by mouth twice daily. - simethicone 250 mg cap Take 1 capsule by mouth twice daily. - traMADol (ULTRAM) 50 mg tablet - esomeprazole (NEXIUM) 20 mg capsule TAKE 1 CAPSULE BY MOUTH DAILY (6 AM) - apixaban (ELIQUIS) 5 mg tab(s) Take 1 tablet by mouth twice daily. - ondansetron (ZOFRAN) 8 mg tablet Take 1 tablet by mouth every 8 hours as needed for nausea/vomiting. - levothyroxine (SYNTHROID) 50 mcg tablet Take 1 tablet by mouth once daily. - buPROPion XL (WELLBUTRIN XL) 150 mg 24 hr tablet Take 2 tablets by mouth once daily. - escitalopram oxalate (LEXAPRO) 20 mg tablet Take 1 tablet by mouth once daily. - tiZANidine HCl 4 mg capsule Take 4 mg by mouth three times daily as needed. 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 DOCUSATE SODIUM 100 MG CAPSULE 60 c* 5 02/22/2022 Route: ORAL Sig: Take 1 capsule by mouth twice daily. Medications Discontinued During This Encounter Prescriptions - docusate sodium (COLACE) 100 mg capsule (Discontinued) Take 1 capsule by mouth twice daily. - ALPRAZolam (XANAX) 1 mg tablet (Discontinued) TAKE 1 TABLET BY MOUTH TWICE DAILY Encounter Status:Closed by KENTRELL DHALIWAL II on 02/22/22 [facility] Ab 02-16-2022 JASON Telephone ([place]) KAITLYN ESCOBAR I ([id number]) 1950 F Date Time Provider Department 02/16/22 KENTRELL DHALIWAL II During your visit today, we recorded the following information about you: Susanne Motta 02/16/2022 2:48 PM Signed Kaitlyn Escobar says she is coming down with another UTI. Burning, urgency, cramps started yesterday. You gave her Bentyl before and it helped. Could you call her in something? Susanne Dhaliwal II, MD 02/16/2022 3:28 PM Signed Rxs sent Susanne Motta 02/16/2022 3:36 PM Signed Patient notified. Susanne Motta Allergies As of Date: 02/16/2022 Noted Allergy Reaction LATEX 06/22/2020 10 - Anaphylaxis CODEINE 06/22/2020 6 - Diarrhea COMPAZINE (PROCHLORPERAZINE) 06/22/2020 17 - Myalgia LEVAQUIN (LEVOFLOXACIN) 06/22/2020 6 - Diarrhea OMNICEF (CEFDINIR) 06/22/2020 6 - Diarrhea PREDNISONE 08/30/2021 8 - GI Upset [id number] REDUCTASE INHIBIT*06/22/2020 6 - Diarrhea SULFA (SULFONAMIDE ANTIBIOTICS) 06/15/2020 14 - Other: See Comments Comments: Leg pain Date Reviewed: 01/17/2022 Reviewed by: Fifi Prather MA - Fully Assessed Reason for Visit: UTI [116] Visit Diagnoses:Parkinson's disease (HCC) [G20] Gastroesophageal reflux disease, unspecified whether esophagitis present [K21.9] Type 2 diabetes mellitus without complication, without long-term current use of insulin (HCC) [E11.9] Anxiety and depression [F41.9, F32.A] Irritable bowel syndrome with both constipation and diarrhea [K58.2] Order(s):dicyclomine (BENTYL) 20 mg tabletTake 1 tablet by mouth three times daily for 7 days.Disp: 21 tabletRfl: 1 nitrofurantoin monohydrate and macrocrystal (MACROBID) 100 mg capsuleTake 1 capsule by mouth twice daily for 7 days.Disp: 14 capsuleRfl: 1 Prescriptions as of 02/16/2022 - dicyclomine (BENTYL) 20 mg tablet Take 1 tablet by mouth three times daily for 7 days. - nitrofurantoin monohydrate and macrocrystal (MACROBID) 100 mg capsule Take 1 capsule by mouth twice daily for 7 days. - zolpidem (AMBIEN) 10 mg TAKE 1 TABLET BY MOUTH EVERY DAY AT BEDTIME NEEDED FOR INSOMNIA - ALPRAZolam (XANAX) 1 mg tablet TAKE 1 TABLET BY MOUTH TWICE DAILY - alprazolam (XANAX ORAL) Take by mouth. - hyoscyamine (LEVSIN) 0.125 mg tablet Take 1 tablet by mouth twice daily. - simethicone 250 mg cap Take 1 capsule by mouth twice daily. - docusate sodium (COLACE) 100 mg capsule Take 1 capsule by mouth twice daily. - traMADol (ULTRAM) 50 mg tablet - esomeprazole (NEXIUM) 20 mg capsule TAKE 1 CAPSULE BY MOUTH DAILY (6 AM) - apixaban (ELIQUIS) 5 mg tab(s) Take 1 tablet by mouth twice daily. - ondansetron (ZOFRAN) 8 mg tablet Take 1 tablet by mouth every 8 hours as needed for nausea/vomiting. - levothyroxine (SYNTHROID) 50 mcg tablet Take 1 tablet by mouth once daily. - buPROPion XL (WELLBUTRIN XL) 150 mg 24 hr tablet Take 2 tablets by mouth once daily. - escitalopram oxalate (LEXAPRO) 20 mg tablet Take 1 tablet by mouth once daily. - tiZANidine HCl 4 mg capsule Take 4 mg by mouth three times daily as needed. 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 NITROFURANTOIN MONOHYDRATE AND MACROCR* 14 c* 1 02/16/2022 02/23/2022 Route: ORAL Sig: Take 1 capsule by mouth twice daily for 7 days. Medications Discontinued During This Encounter Prescriptions - lubiprostone (AMITIZA) 8 mcg capsule (Discontinued) Reported on 01/17/2022 Encounter Status:Closed by SUSANNE MOTTA on 02/16/22 [facility] 01-24-2022 CNPN Telephone ([place]) KAITLYN ESCOBAR I ([id number]) 1950 F Date Time Provider Department 01/24/22 KENTRELL DHALIWAL II During your visit today, we recorded the following information about you: Garima Drew MA 01/24/2022 1:54 PM Signed Patient called stating she is having stomach cramps and would like to know if she can take the Bentle that Dr. Dhaliwal prescribed for her? Please advise LISA Rasmussen II, MD 01/24/2022 2:00 PM Signed Yes Every 6 hours as needed Garima Drew MA 01/24/2022 2:16 PM Signed Called patient to inform of Dr. Dhaliwal message. Patient states understanding and will call with any further questions or concerns. Garima Drew MA Allergies As of Date: 01/24/2022 Noted Allergy Reaction LATEX 06/22/2020 10 - Anaphylaxis CODEINE 06/22/2020 6 - Diarrhea COMPAZINE (PROCHLORPERAZINE) 06/22/2020 17 - Myalgia LEVAQUIN (LEVOFLOXACIN) 06/22/2020 6 - Diarrhea OMNICEF (CEFDINIR) 06/22/2020 6 - Diarrhea PREDNISONE 08/30/2021 8 - GI Upset [id number] REDUCTASE INHIBIT*06/22/2020 6 - Diarrhea SULFA (SULFONAMIDE ANTIBIOTICS) 06/15/2020 14 - Other: See Comments Comments: Leg pain Date Reviewed: 01/17/2022 Reviewed by: Fifi Prather MA - Fully Assessed Reason for Visit: Patient Question [1707] Prescriptions as of 01/24/2022 - ALPRAZolam (XANAX) 1 mg tablet TAKE 1 TABLET BY MOUTH TWICE DAILY - alprazolam (XANAX ORAL) Take by mouth. - lubiprostone (AMITIZA) 8 mcg capsule Take 1 capsule by mouth twice daily with meals. - hyoscyamine (LEVSIN) 0.125 mg tablet Take 1 tablet by mouth twice daily. - simethicone 250 mg cap Take 1 capsule by mouth twice daily. - docusate sodium (COLACE) 100 mg capsule Take 1 capsule by mouth twice daily. - zolpidem (AMBIEN) 10 mg Take 1 tablet by mouth at bedtime as needed for up to 30 days. for insomnia. - traMADol (ULTRAM) 50 mg tablet - esomeprazole (NEXIUM) 20 mg capsule TAKE 1 CAPSULE BY MOUTH DAILY (6 AM) - apixaban (ELIQUIS) 5 mg tab(s) Take 1 tablet by mouth twice daily. - ondansetron (ZOFRAN) 8 mg tablet Take 1 tablet by mouth every 8 hours as needed for nausea/vomiting. - levothyroxine (SYNTHROID) 50 mcg tablet Take 1 tablet by mouth once daily. - buPROPion XL (WELLBUTRIN XL) 150 mg 24 hr tablet Take 2 tablets by mouth once daily. - escitalopram oxalate (LEXAPRO) 20 mg tablet Take 1 tablet by mouth once daily. - tiZANidine HCl 4 mg capsule Take 4 mg by mouth three times daily as needed. 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 Neff office called stating they will treat patient for IBS and abdominal pain however, they will not treat for SBO or liver issues. Garima Drew MA Allergies As of Date: 01/23/2022 Noted Allergy Reaction LATEX 06/22/2020 10 - Anaphylaxis CODEINE 06/22/2020 6 - Diarrhea COMPAZINE (PROCHLORPERAZINE) 06/22/2020 17 - Myalgia LEVAQUIN (LEVOFLOXACIN) 06/22/2020 6 - Diarrhea OMNICEF (CEFDINIR) 06/22/2020 6 - Diarrhea PREDNISONE 08/30/2021 8 - GI Upset [id number] REDUCTASE INHIBIT*06/22/2020 6 - Diarrhea SULFA (SULFONAMIDE ANTIBIOTICS) 06/15/2020 14 - Other: See Comments Comments: Leg pain Date Reviewed: 01/17/2022 Reviewed by: Fifi Prather MA - Fully Assessed Reason for Visit: Referral Request [124] Prescriptions as of 01/23/2022 - alprazolam (XANAX ORAL) Take by mouth. - lubiprostone (AMITIZA) 8 mcg capsule Take 1 capsule by mouth twice daily with meals. - hyoscyamine (LEVSIN) 0.125 mg tablet Take 1 tablet by mouth twice daily. - simethicone 250 mg cap Take 1 capsule by mouth twice daily. - docusate sodium (COLACE) 100 mg capsule Take 1 capsule by mouth twice daily. - zolpidem (AMBIEN) 10 mg Take 1 tablet by mouth at bedtime as needed for up to 30 days. for insomnia. - traMADol (ULTRAM) 50 mg tablet - esomeprazole (NEXIUM) 20 mg capsule TAKE 1 CAPSULE BY MOUTH DAILY (6 AM) - apixaban (ELIQUIS) 5 mg tab(s) Take 1 tablet by mouth twice daily. - ondansetron (ZOFRAN) 8 mg tablet Take 1 tablet by mouth every 8 hours as needed for nausea/vomiting. - levothyroxine (SYNTHROID) 50 mcg tablet Take 1 tablet by mouth once daily. - buPROPion XL (WELLBUTRIN XL) 150 mg 24 hr tablet Take 2 tablets by mouth once daily. - escitalopram oxalate (LEXAPRO) 20 mg tablet Take 1 tablet by mouth once daily. - tiZANidine HCl 4 mg capsule Take 4 mg by mouth three times daily as needed. 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] Diabetes (HCC) [E11.9] Anxiety and depression [F41.9, F32.A] Hypothyroidism, acquired [E03.9] 08/30/2021 Encounter Status:Closed by GARIMA DREW on 01/23/22 [facility] Ab 01-13-2022 CNPN Telephone (AGDOVER) KAITLYN ESCOBAR I ([id number]) 1950 F Date Time Provider Department 01/13/22 KENTRELL DHALIWAL II During your visit today, we recorded the following information about you: Denita Thomas MA 01/13/2022 4:09 PM Signed ----- Message from Kentrell Dhaliwal II, MD sent at 01/13/2022 3:53 PM EDT ----- Aside from some incidental things that probably do not have any bearing on her pain the ultrasound is not showing any significant abnormality Denita Thomas MA 01/13/2022 4:09 PM Signed Patient has been informed. Denita Thomas MA Allergies As of Date: 01/13/2022 Noted Allergy Reaction LATEX 06/22/2020 10 - Anaphylaxis CODEINE 06/22/2020 6 - Diarrhea COMPAZINE (PROCHLORPERAZINE) 06/22/2020 17 - Myalgia LEVAQUIN (LEVOFLOXACIN) 06/22/2020 6 - Diarrhea OMNICEF (CEFDINIR) 06/22/2020 6 - Diarrhea PREDNISONE 08/30/2021 8 - GI Upset [id number] REDUCTASE INHIBIT*06/22/2020 6 - Diarrhea SULFA (SULFONAMIDE ANTIBIOTICS) 06/15/2020 14 - Other: See Comments Comments: Leg pain Date Reviewed: 01/05/2022 Reviewed by: Denita Thomas MA - Fully Assessed Reason for Visit: Results [95] Prescriptions as of 01/13/2022 - lubiprostone (AMITIZA) 8 mcg capsule Take 1 capsule by mouth twice daily with meals. - hyoscyamine (LEVSIN) 0.125 mg tablet Take 1 tablet by mouth twice daily. - simethicone 250 mg cap Take 1 capsule by mouth twice daily. - docusate sodium (COLACE) 100 mg capsule Take 1 capsule by mouth twice daily. - zolpidem (AMBIEN) 10 mg Take 1 tablet by mouth at bedtime as needed for up to 30 days. for insomnia. - traMADol (ULTRAM) 50 mg tablet - esomeprazole (NEXIUM) 20 mg capsule TAKE 1 CAPSULE BY MOUTH DAILY (6 AM) - apixaban (ELIQUIS) 5 mg tab(s) Take 1 tablet by mouth twice daily. - ondansetron (ZOFRAN) 8 mg tablet Take 1 tablet by mouth every 8 hours as needed for nausea/vomiting. - levothyroxine (SYNTHROID) 50 mcg tablet Take 1 tablet by mouth once daily. - buPROPion XL (WELLBUTRIN XL) 150 mg 24 hr tablet Take 2 tablets by mouth once daily. - escitalopram oxalate (LEXAPRO) 20 mg tablet Take 1 tablet by mouth once daily. - tiZANidine HCl 4 mg capsule Take 4 mg by mouth three times daily as needed. 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 Please advise Susanne Dhaliwal II, MD 01/13/2022 3:51 PM Signed I did reorder her stomach medicine for another 2 weeks. She should avoid pain medications other than anti-inflammatories and Tylenol because that could make the gastrointestinal issues worse I do think it is time she should think about going to see a inside horticultural specialty grower. Denita Thomas MA 01/13/2022 4:10 PM Signed Patient has been informed and will contact her insurance company. Denita Thomas MA 01/16/2022 9:00 AM Signed Patient had contacted her insurance company and would like the referral be sent to Dr. Bonilla. Please order and fax. Denita Dhaliwal II, MD 01/17/2022 1:07 PM Signed printed Kentrell Dhaliwal II, MD 01/17/2022 1:07 PM Signed Addended by: KENTRELL DHALIWAL II on: 01/17/2022 01:07 PM Modules accepted: Orders Denita Thomas MA 01/19/2022 11:[address] Neff office called back mentioning that he was unable to take the patient due to he does not see people for SBO. Says that she will need to see a surgeon. Denita Dhaliwal II, MD 01/19/2022 1:44 PM Signed I am well aware that Dr Bonilla is not a surgeon She is already seeing and following up with surgery for the SBO and they have stated it was resolved She wants to see Dr Bonilla for IBS with diarrhea and constipation and recurrent abdominal pain independent of the SBO She has not had a colonoscopy Denita Thomas MA 01/20/2022 2:31 PM Signed Referral has been refaxed with Dr. Dhaliwal message. Denita Sainz 01/23/2022 10:27 AM Signed Kasey from Dr Bonilla's office called to report the Order they received for Small Bowel Obstruction would not be for Dr Bonilla's office. This referral should go to General Surgery. I faxed over the updated order that has Generalized abdominal pain, elevated liver function tests, small bowel obstruction. Referrl to Dr bonilla for evaluation and treatment of recurrent abdominal pain. Kasey says this order should work. Liliana Sainz Allergies As of Date: 01/13/2022 Noted Allergy Reaction LATEX 06/22/2020 10 - Anaphylaxis CODEINE 06/22/2020 6 - Diarrhea COMPAZINE (PROCHLORPERAZINE) 06/22/2020 17 - Myalgia LEVAQUIN (LEVOFLOXACIN) 06/22/2020 6 - Diarrhea OMNICEF (CEFDINIR) 06/22/2020 6 - Diarrhea PREDNISONE 08/30/2021 8 - GI Upset [id number] REDUCTASE INHIBIT*06/22/2020 6 - Diarrhea SULFA (SULFONAMIDE ANTIBIOTICS) 06/15/2020 14 - Other: See Comments Comments: Leg pain Date Reviewed: 01/05/2022 Reviewed by: Denita Thomas MA - Fully Assessed Reason for Visit: Patient Update [1234] Primary Visit Diagnosis:Generalized abdominal pain [R10.84] Other Visit Diagnoses:Elevated liver function tests [R79.89] SBO (small bowel obstruction) (HCC) [K56.609] Order(s):lubiprostone (AMITIZA) 8 mcg capsuleTake 1 capsule by mouth twice daily with meals.Disp: 28 capsuleRfl: 0 hyoscyamine (LEVSIN) 0.125 mg tabletTake 1 tablet by mouth twice daily.Disp: 28 tabletRfl: 0 simethicone 250 mg capTake 1 capsule by mouth twice daily.Disp: 28 capsuleRfl: 0 CONSULT TO GASTROENTEROLOGY [9019] Order #: [id number]: 1 FUTURE Prescriptions as of 01/23/2022 - alprazolam (XANAX ORAL) Take by mouth. - lubiprostone (AMITIZA) 8 mcg capsule Take 1 capsule by mouth twice daily with meals. - hyoscyamine (LEVSIN) 0.125 mg tablet Take 1 tablet by mouth twice daily. - simethicone 250 mg cap Take 1 capsule by mouth twice daily. - docusate sodium (COLACE) 100 mg capsule Take 1 capsule by mouth twice daily. - zolpidem (AMBIEN) 10 mg Take 1 tablet by mouth at bedtime as needed for up to 30 days. for insomnia. - traMADol (ULTRAM) 50 mg tablet - esomeprazole (NEXIUM) 20 mg capsule TAKE 1 CAPSULE BY MOUTH DAILY (6 AM) - apixaban (ELIQUIS) 5 mg tab(s) Take 1 tablet by mouth twice daily. - ondansetron (ZOFRAN) 8 mg tablet Take 1 tablet by mouth every 8 hours as needed for nausea/vomiting. - levothyroxine (SYNTHROID) 50 mcg tablet Take 1 tablet by mouth once daily. - buPROPion XL (WELLBUTRIN XL) 150 mg 24 hr tablet Take 2 tablets by mouth once daily. - escitalopram oxalate (LEXAPRO) 20 mg tablet Take 1 tablet by mouth once daily. - tiZANidine HCl 4 mg capsule Take 4 mg by mouth three times daily as needed. Problem List As Of Date 01/13/2022 Noted Resolved Parkinson's disease (HCC) [G20] 06/22/2020 Irritable bowel syndrome with both constipation* 0 Subclinical hypothyroidism [E03.8] (more content not included)... Normal [facility] US ABDOMEN COMPLETEon 2021 [facility] 01-09-2022 CNPN Telephone (DONYA) KAITLYN ESCOBAR I ([id number]) 1950 F Date Time Provider Department 01/09/22 KENTRELL DHALIWAL II During your visit today, we recorded the following information about you: Denita Thomas MA 01/09/2022 10:21 AM Signed Ella from [facility] called regarding patients insurance. They are denying the PT and OT for patient with out the 485 signed and an actual order. 485 has been faxed but we just need an order for patients PT and OT. Please print order and fax to [phone]. Denita Dhaliwal II, MD 01/10/2022 8:55 AM Signed Printed Susanne Motta 01/10/2022 9:38 AM Signed Order faxed to [facility]. Susanne Motta 01/10/2022 11:06 AM Signed Americo from [facility] called, they received the PT order we faxed but they need it to have both PT and OT. Also, she had her first therapy on 12-22, could you put that start date on the order so her ins will cover it? Also has to have the [facility] on the order. The last one had a [facility] [place] in [place] on it. Susanne Dhaliwal II, MD 01/10/2022 5:15 PM Signed Printed Kentrell Dhaliwal II, MD 01/10/2022 5:15 PM Signed Addended by: KENTRELL DHALIWAL II on: 01/10/2022 05:15 PM Modules accepted: Orders Susanne Motta 01/11/2022 9:04 AM Signed Sent new order to [facility]. Susanne Motta Allergies As of Date: 01/09/2022 Noted Allergy Reaction LATEX 06/22/2020 10 - Anaphylaxis CODEINE 06/22/2020 6 - Diarrhea COMPAZINE (PROCHLORPERAZINE) 06/22/2020 17 - Myalgia LEVAQUIN (LEVOFLOXACIN) 06/22/2020 6 - Diarrhea OMNICEF (CEFDINIR) 06/22/2020 6 - Diarrhea PREDNISONE 08/30/2021 8 - GI Upset [id number] REDUCTASE INHIBIT*06/22/2020 6 - Diarrhea SULFA (SULFONAMIDE ANTIBIOTICS) 06/15/2020 14 - Other: See Comments Comments: Leg pain Date Reviewed: 01/05/2022 Reviewed by: Denita Thomas MA - Fully Assessed Reason for Visit: Orders [681] Primary Visit Diagnosis:Generalized weakness [R53.1] Other Visit Diagnoses:SBO (small bowel obstruction) ([facility]) [K56.609] Fatigue, unspecified type [R53.83] Type 2 diabetes mellitus without complication, without long-term current use of insulin ([facility]) [E11.9] Parkinson's disease ([facility]) [G20] Order(s):CONSULT TO PHYSICAL THERAPY [9032] Order #: [id number]: 1 FUTURE CONSULT TO PHYSICAL THERAPY [9032] Order #: [id number]: 1 FUTURE Prescriptions as of 01/11/2022 - docusate sodium (COLACE) 100 mg capsule Take 1 capsule by mouth twice daily. - lubiprostone (AMITIZA) 8 mcg capsule Take 1 capsule by mouth twice daily with meals. - hyoscyamine (LEVSIN) 0.125 mg tablet Take 1 tablet by mouth twice daily. - simethicone 250 mg cap Take 1 capsule by mouth twice daily. - celecoxib (CELEBREX) 200 mg capsule Take 1 capsule by mouth twice daily as needed for pain. - zolpidem (AMBIEN) 10 mg Take 1 tablet by mouth at bedtime as needed for up to 30 days. for insomnia. - traMADol (ULTRAM) 50 mg tablet - esomeprazole (NEXIUM) 20 mg capsule TAKE 1 CAPSULE BY MOUTH DAILY (6 AM) - apixaban (ELIQUIS) 5 mg tab(s) Take 1 tablet by mouth twice daily. - ondansetron (ZOFRAN) 8 mg tablet Take 1 tablet by mouth every 8 hours as needed for nausea/vomiting. - levothyroxine (SYNTHROID) 50 mcg tablet Take 1 tablet by mouth once daily. - buPROPion XL (WELLBUTRIN XL) 150 mg 24 hr tablet Take 2 tablets by mouth once daily. - escitalopram oxalate (LEXAPRO) 20 mg tablet Take 1 tablet by mouth once daily. - tiZANidine HCl 4 mg capsule Take 4 mg by mouth three times daily as needed. 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 I would suggest that we do an abdominal ultrasound Denita Thomas MA 01/06/2022 2:12 PM Signed Left a voicemail advising patient to call back. Denita Motta 01/06/2022 2:46 PM Signed Spoke with Kaitlyn Escobar , gave her time and date of her US. Susanne Motta Allergies As of Date: 01/06/2022 Noted Allergy Reaction LATEX 06/22/2020 10 - Anaphylaxis CODEINE 06/22/2020 6 - Diarrhea COMPAZINE (PROCHLORPERAZINE) 06/22/2020 17 - Myalgia LEVAQUIN (LEVOFLOXACIN) 06/22/2020 6 - Diarrhea OMNICEF (CEFDINIR) 06/22/2020 6 - Diarrhea PREDNISONE 08/30/2021 8 - GI Upset [id number] REDUCTASE INHIBIT*06/22/2020 6 - Diarrhea SULFA (SULFONAMIDE ANTIBIOTICS) 06/15/2020 14 - Other: See Comments Comments: Leg pain Date Reviewed: 01/05/2022 Reviewed by: Denita Thomas MA - Fully Assessed Reason for Visit: Results [95] Primary Visit Diagnosis:Generalized abdominal pain [R10.84] Other Visit Diagnosis:Elevated liver function tests [R79.89] Order(s):US ABDOMEN COMPLETE [7218553] Order #: [id number] FUTURE Prescriptions as of 01/06/2022 - docusate sodium (COLACE) 100 mg capsule Take 1 capsule by mouth twice daily. - lubiprostone (AMITIZA) 8 mcg capsule Take 1 capsule by mouth twice daily with meals. - hyoscyamine (LEVSIN) 0.125 mg tablet Take 1 tablet by mouth twice daily. - simethicone 250 mg cap Take 1 capsule by mouth twice daily. - celecoxib (CELEBREX) 200 mg capsule Take 1 capsule by mouth twice daily as needed for pain. - zolpidem (AMBIEN) 10 mg Take 1 tablet by mouth at bedtime as needed for up to 30 days. for insomnia. - traMADol (ULTRAM) 50 mg tablet - esomeprazole (NEXIUM) 20 mg capsule TAKE 1 CAPSULE BY MOUTH DAILY (6 AM) - apixaban (ELIQUIS) 5 mg tab(s) Take 1 tablet by mouth twice daily. - ondansetron (ZOFRAN) 8 mg tablet Take 1 tablet by mouth every 8 hours as needed for nausea/vomiting. - levothyroxine (SYNTHROID) 50 mcg tablet Take 1 tablet by mouth once daily. - buPROPion XL (WELLBUTRIN XL) 150 mg 24 hr tablet Take 2 tablets by mouth once daily. - escitalopram oxalate (LEXAPRO) 20 mg tablet Take 1 tablet by mouth once daily. - tiZANidine HCl 4 mg capsule Take 4 mg by mouth three times daily as needed. 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 2 mg/dL [facility] Chloride [Moles/Vol] 104 mmol/L 98 - 10 7 mmol/L [facility] CO2 [Moles/Vol] 12 mmol/L Low 22 - 29 mmol/L [facility] Creatinine [Mass/Vol] 1.15 mg/dL High 0.50 - 0.90 mg/dL [facility] eGFR-All Other Races [facility] GFR/1.73 sq M.predicted among blacks MDRD (S/P/Bld) [Vol rate/Area] 56 mL/min/{1.73_m2} [facility] Glucose [Mass/Vol] 122 mg/dL High 82 - 115 mg/dL [facility] Potassium [Moles/Vol] 4.4 mmol/L 3.5 - 5.0 mmol/L [facility] Sodium [Moles/Vol] 137 mmol/L 135 - 145 mmol/L [facility] Urea nitrogen [Mass/Vol] 19 mg/dL 8 - 23 mg/dL [facility] CBC W Auto Differential pane l (Bld)on 01-05-2022 BASO ABS 0.10 x10(3) 0.00 - 0.10 x10(3) [facility] Basophils/100 WBC (Bld) 0.6 % 0.0 - 1.0 % [facility] EOS ABS 0.00 x10(3) 0.00 - 0.54 x10(3) [facility] Eosinophils/100 WBC (Bld) 0.3 % Low 0.5 - 4.9 % [facility] Erythrocyte distribution width (RBC) [Ratio] 15.4 % 12.5 - 15.7 % [facility] Hematocrit (Bld) [Volume fraction] 36.2 % 36.0 - 48.0 % [facility] Hemoglobin (Bld) [Mass/Vol] 11.5 g/dL Low 12.0 - 16.0 g/dL [facility] LYMPH ABS 2.30 x10(3) 1.00 - 3.50 x10(3) [facility] Lymphocytes/100 WBC (Bld) 24.6 % 16.0 - 48.0 % [facility] MCH (RBC) [Entitic mass] 28.3 pg Low 28.5 - 32.9 pg [facility] MCHC (RBC) [Mass/Vol] 31.7 g/dL Low 33.0 - 36.0 g/dL [facility] MCV (RBC) [Entitic vol] 89.3 fL 80.0 - 99.0 fl [facility] MONO ABS 0.50 x10(3) 0.30 - 0.80 x10(3) [facility] Monocytes/100 WBC (Bld) 5.4 % 4.3 - 11.2 % [facility] Neutrophil Ab 6.50 x10(3) 1.40 - 6.50 x10(3) [facility] Neutrophils/100 WBC (Bld) 69.1 % 45.0 - 73.0 % [facility] Platelet Count 588 X10(3) High 150 - 450 X10(3) [facility] Platelet mean volume (Bld) [Entitic vol] 8.0 fL 7.5 - 9.5 fl [facility] RBC 4.06 x10(6) 3.30 - 5.00 x10(6) [facility] WBC 9.4 x10(3) 4.5 - 10.0 x10(3) [facility] CNOVon 01-05-2022 CNOV Office Visit (ERNESTOHUSSEIN R) KAITLYN ESCOBAR I ([id number]) 1950 F Date Time Provider Department 01/05/22 1:20 PM KENTRELL DHALIWAL II During your visit today, we recorded the following information about you: Temperature Pulse Respiration Blood pressure 97.2 degrees 105/minute 16/minute 130/90 Weight Height 78.9 kg 1.549 m Kentrell Dhaliwal II, MD 01/15/2022 9:51 PM Signed Transitional Care Management TCM Eligibility Documentation The following information was gathered during the initial Patient Outreach Encounter. No flowsheet data found. Summary Discharged from: [facility] Admit Date: 10/30/21-11/13/21 11/24/21-11/25/21, 12/26/21-12/21/21 Admitted for: SBO, Bowel Abrasions, Bowel surgery Denita Thomas MA Provider Documentation Kaitlyn Escobar is a 71 year old female here today for a follow up to recent hospitalization. I have reviewed the patient's hospital course including diagnostic testing performed during this hospitalization, their discharge medications, and my assessment and plan with the patient and any family members present at today's visit. HPI: See above ROS See above Vitals Resp 16 Ht 5' 1 (1.55m) Wt 174 lb (78.9kg) BMI 32.89 kg/(m2). Physical Exam See above. Kentrell Dhaliwal II, MD 01/15/2022 9:51 PM Signed Transitional Care Management TCM Eligibility Documentation The following information was gathered during the initial Patient Outreach Encounter. No flowsheet data found. Summary Discharged from: [facility] Admit Date: 12/26/21 Admitted for: Small bowel obstruction, dehydration Kentrell Dhaliwal II, MD Provider Documentation Kaitlyn Escobar is a 71 year old female here today for a follow up to recent hospitalization. I have reviewed the patient's hospital course including diagnostic testing performed during this hospitalization, their discharge medications, and my assessment and plan with the patient and any family members present at today's visit. HPI: Patient is in today to follow-up on hospital stay for small bowel obstruction and abdominal pain along with dehydration. She states that since she has been home she feels a little bit better but she continues to have abdominal discomfort and constipation. She also has generalized weakness fatigue and wanted to discuss her other chronic problems. Review of Systems Constitutional: Positive for malaise/fatigue. Negative for chills, diaphoresis, fever and weight loss. HENT: Negative for congestion, ear discharge, ear pain, nosebleeds, sinus pain and sore throat. Eyes: Negative for blurred vision. Respiratory: Negative for cough, hemoptysis, sputum production, shortness of breath, wheezing and stridor. Cardiovascular: Negative for chest pain, palpitations, orthopnea, claudication, leg swelling and PND. Gastrointestinal: Positive for abdominal pain, constipation and nausea. Negative for blood in stool, diarrhea, heartburn, melena and vomiting. Genitourinary: Negative for dysuria, flank pain, frequency, hematuria and urgency. Musculoskeletal: Positive for joint pain and myalgias. Negative for back pain, falls and neck pain. Skin: Negative for itching and rash. Neurological: Positive for weakness. Negative for dizziness, tingling, tremors, sensory change, speech change, loss of consciousness and headaches. Endo/Heme/Allergies: Negative for polydipsia. Does not bruise/bleed easily. Psychiatric/Behavioral : Negative for depression, hallucinations, memory loss, substance abuse and suicidal ideas. The patient is not nervous/anxious and does not have insomnia. Vitals BP 130/90 Pulse 105 Temp 97.2 Resp 16 Ht 5' 1 (1.55m) Wt 174 lb (78.9kg) SpO2 99% BMI 32.89 kg/(m2). Physical Exam Vitals and nursing note reviewed. Constitutional: General: She is not in acute distress. Appearance: Normal appearance. She is normal weight. She is not ill-appearing, toxic-appearing or diaphoretic. HENT: Head: Normocephalic and atraumatic. Right Ear: Tympanic membrane, ear canal and external ear normal. Left Ear: Tympanic membrane, ear canal and external ear normal. Nose: Nose normal. Mouth/Throat: Mouth: Mucous membranes are moist. Pharynx: Oropharynx is clear. No oropharyngeal exudate or posterior oropharyngeal erythema. Eyes: General: Lids are normal. Vision grossly intact. No scleral icterus. Right eye: No discharge. Left eye: No discharge. Conjunctiva/sclera: Conjunctivae normal. Pupils: Pupils are equal, round, and reactive to light. Neck: Thyroid: No thyroid mass, thyromegaly or thyroid tenderness. Vascular: No carotid bruit or JVD. Trachea: No tracheal deviation. Cardiovascular: Rate and Rhythm: Normal rate and regular rhythm. Pulses: Normal pulses. Heart sounds: Normal heart sounds. No murmur heard. No friction rub. No gallop. Pulmon (more content not included)... Normal [facility] 01-05-2022 JASON Telephone ([employer]) KAITLYN ESCOBAR I ([id number]) 1950 F Date Time Provider Department 01/05/22 KENTRELL DHALIWAL II During your visit today, we recorded the following information about you: Garima Drew MA 01/05/2022 2:40 PM Signed Prior auth for LUBIPROSTONE was sent to [facility] LISA Rasmussen MA 01/06/2022 8:20 AM Signed -PA approved for Lubiprostone has been approved until 09/16/2022 Denita Thomas MA Allergies As of Date: 01/05/2022 Noted Allergy Reaction LATEX 06/22/2020 10 - Anaphylaxis CODEINE 06/22/2020 6 - Diarrhea COMPAZINE (PROCHLORPERAZINE) 06/22/2020 17 - Myalgia LEVAQUIN (LEVOFLOXACIN) 06/22/2020 6 - Diarrhea OMNICEF (CEFDINIR) 06/22/2020 6 - Diarrhea PREDNISONE 08/30/2021 8 - GI Upset [id number] REDUCTASE INHIBIT*06/22/2020 6 - Diarrhea SULFA (SULFONAMIDE ANTIBIOTICS) 06/15/2020 14 - Other: See Comments Comments: Leg pain Date Reviewed: 01/05/2022 Reviewed by: Denita Thomas MA - Fully Assessed Reason for Visit: Insurance Authorization [[id number]] Prescriptions as of 01/06/2022 - docusate sodium (COLACE) 100 mg capsule Take 1 capsule by mouth twice daily. - lubiprostone (AMITIZA) 8 mcg capsule Take 1 capsule by mouth twice daily with meals. - hyoscyamine (LEVSIN) 0.125 mg tablet Take 1 tablet by mouth twice daily. - simethicone 250 mg cap Take 1 capsule by mouth twice daily. - celecoxib (CELEBREX) 200 mg capsule Take 1 capsule by mouth twice daily as needed for pain. - zolpidem (AMBIEN) 10 mg Take 1 tablet by mouth at bedtime as needed for up to 30 days. for insomnia. - traMADol (ULTRAM) 50 mg tablet - esomeprazole (NEXIUM) 20 mg capsule TAKE 1 CAPSULE BY MOUTH DAILY (6 AM) - apixaban (ELIQUIS) 5 mg tab(s) Take 1 tablet by mouth twice daily. - ondansetron (ZOFRAN) 8 mg tablet Take 1 tablet by mouth every 8 hours as needed for nausea/vomiting. - levothyroxine (SYNTHROID) 50 mcg tablet Take 1 tablet by mouth once daily. - buPROPion XL (WELLBUTRIN XL) 150 mg 24 hr tablet Take 2 tablets by mouth once daily. - escitalopram oxalate (LEXAPRO) 20 mg tablet Take 1 tablet by mouth once daily. - tiZANidine HCl 4 mg capsule Take 4 mg by mouth three times daily as needed. 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] Diabetes (HCC) [E11.9] Anxiety and depression [F41.9, F32.A] Hypothyroidism, acquired [E03.9] 08/30/2021 Encounter Status:Closed by GARIMA DREW on 01/05/22 Normal [facility] HEPATIC FUNCTION PNLon 01-05 Albumin [Mass/Vol] 4.4 g/dL 3.5 - 5.2 g/dL [facility] Albumin/Globulin [Mass ratio] 1.41 {ratio} 1.1 - 2.5 [facility] ALP [Catalytic activity/Vol] 212 U/L High 35 - 105 U/L [facility] ALT [Catalytic activity/Vol] 88 U/L High 5 - 33 U/L [facility] AST [Catalytic activity/Vol] 89 U/L High 5 - 32 U/L [facility] Bilirubin [Mass/Vol] 0.4 mg/dL 0.2 - 1 .2 mg/dL [facility] Direct Bilirubin <0.2 0.0 - 0.3 mg/dL [facility] Globulin (S) [Mass/Vol] 3.1 g/dL 1.5 - 4.5 g/dL [facility] Protein [Mass/Vol] 7.5 g/dL 6.4 - 8.3 g/dL [facility] IRON + TIBCon 01-05-2022 % Saturation (TIBC) 12 % 10 - 32 % [facility] [Mass/Vol] 58 ug/dL 37 - 145 ug/dL [facility] TIBC 458 mg/dL 269 - 535 mg/dL [facility] Transferrin [Mass/Vol] 327 mg/dL 192 - 382 mg/dL [facility] TSH Qnon 01-05-2022 TSH 2.02 uIU/mL 0.270 - 4.200 uIU/mL [facility] VITAMIN B12 BLOODon 01-06-20 Cobalamin (Vitamin B12) [Mass/Vol] 739.8 pg/mL 232 - 1,245 pg/mL [facility] VITAMIN D 25 HYDROXYon 01-05 VITAMIN D 36.9 ng/mL 30 - 100 ng/mL [facility] BMPon 12-20-2021 Anion gap [Moles/Vol] 11 mmol/L Normal 5-16 [facility] Comment on above: Order Comment: Campu s: M Performed By: #### L 500.08834, L500.19304, L500.23283, L550.32951 #### [facility] [address] [place] [address]51 Calcium [Mass/Vol] 8.4 mg/dL Low 8.5-10.5 [facility] Comment on above: Order Comment: Campu s: M Result Comment: NOTE NEW NORMAL RANGE DUE TO REAGENT CHANGE Performed By: #### L 500.97862, L500.48317, L500.27903, L550.39613 #### [facility] [address] [place] [address] Chloride [Moles/Vol] 107 mmol/L Normal 98-107 [facility] Comment on above: Order Comment: Campu s: M Performed By: #### L 500.70557, L500.27068, L500.35509, L550.28017 #### [facility] [address] [place] [address] 24923 CO2 [Moles/Vol] 23.0 mmol/L Normal 21-32 [facility] Comment on above: Order Comment: Campu s: M Performed By: #### L 500.18229, L500.69240, L500.02610, L550.68702 #### [facility] [address] [place] [address]39 Creatinine [Mass/Vol] 1.10 mg/dL High 0.510-0.950 [facility] Comment on above: Order Comment: Campu s: M Result Comment: Joanie ents receiving either N-Acetylcysteine (NAC) or Metamizole prior to venipuncture, may have falsely depressed results. Performed By: #### L 500.81390, L500.88889, L500.72672, L550.46539 #### [facility] [address] [place], [place] [id number] Glucose [Mass/Vol] 102 mg/dL High 70-100 [facility] Comment on above: Order Comment: Campu s: M Result Comment: 70-1 00- Normal Fasting; 100-125 Impaired Fasting; greater than 126 on more than one result- Diabetes. ADA guidelines. Results may be falsely elevated after the administration of Sulfapyridine. Results may be falsely depressed after the administration of Sulfasalazine. Performed By: #### L 500.22301, L500.11118, L500.53294, L550.71174 #### [facility] [address] [place] [address] Potassium [Moles/Vol] 3.5 mmol/L Normal 3.5-5.1 [facility] Comment on above: Order Comment: Campu s: M Performed By: #### L 500.44537, L500.53355, L500.90715, L550.43362 #### [facility] [address] [place] [address] Sodium [Moles/Vol] 141 mmol/L Normal 136-145 [facility] Comment on above: Order Comment: Campu s: M Performed By: #### L 500.25148, L500.81879, L500.60141, L550.38115 #### [facility] [address] [place], [place] [id number] Urea nitrogen [Mass/Vol] 12 mg/dL Normal 7-26 [facility] Comment on above: Order Comment: Campu s: M Performed By: #### L 500.21510, L500.90140, L500.26476, L550.08279 #### [facility] [address] [place], [place] [id number] Urea nitrogen/Creatinine [Mass ratio] 11 mg/mg Low 15-24 [facility] Comment on above: Order Comment: Campu s: M Performed By: #### L 500.36832, L500.33831, L500.91300, L550.80867 #### [facility] [address] [place] [address] CBC W/DIFFon 12-20-2021 BASO ABS 0.00 K/CU MM Normal 0-0.2 [facility] Comment on above: Order Comment: Campu s: M Performed By: #### L 200.23300 #### [facility] [address] [place] [address] Basophils/100 WBC (Bld) 0.3 % Normal 0-2 [facility] Comment on above: Order Comment: Campu s: M Performed By: #### L 200.26438 #### [facility] [address] [place] [address] EOS ABS 0.00 K/CU MM Normal 0-0.5 [facility] Comment on above: Order Comment: Campu s: M Performed By: #### L 200.59595 #### [facility] [address] [place] [address] Eosinophils/100 WBC (Bld) 0.0 % Normal 0-5 [facility] Comment on above: Order Comment: Campu s: M Performed By: #### L 200.39661 #### [facility] [address] [place] [address] Erythrocyte distribution width (RBC) [Ratio] 14.9 % High 11-14.5 [facility] Comment on above: Order Comment: Campu s: M Performed By: #### L 200.90267 #### [facility] [address] [place] [address] Hematocrit (Bld) [Volume fraction] 28.9 % Low 35.0-47.0 [facility] Comment on above: Order Comment: Campu s: M Performed By: #### L 200.54030 #### [facility] [address] [place] [address] Hemoglobin (Bld) [Mass/Vol] 9.4 g/dL Low 11.5-15.5 [facility] Comment on above: Order Comment: Campu s: M Performed By: #### L 200.93879 #### [facility] [address] [place] [address] IMMATR GRAN ABS 0.10 K/CU MM Normal Less than 2 [facility] Comment on above: Order Comment: Campu s: M Performed By: #### L 200.35555 #### [facility] [address] [place] [address] IMMATURE GRAN % 1.2 % Normal Less than 2 [facility] Comment on above: Order Comment: Campu s: M Performed By: #### L 200.17521 #### [facility] [address] [place] [address] LYMPH ABS 0.40 K/CU MM Low 0.9-4.4 [facility] Comment on above: Order Comment: Campu s: M Performed By: #### L 200.88528 #### [facility] [address] [place] [address] Lymphocytes/100 WBC (Bld) 3.9 % Low 20-40 [facility] Comment on above: Order Comment: Campu s: M Performed By: #### L 200.55829 #### [facility] [address] [place] [address] MCHC (RBC) [Mass/Vol] 32.5 g/dL Normal 32.0-36.0 [facility] Comment on above: Order Comment: Campu s: M Performed By: #### L 200.78807 #### [facility] [address] [place] [address] MCV (RBC) [Entitic vol] 90.6 fL Normal 80.0-99.0 M [facility] Comment on above: Order Comment: Campu s: M Result Comment: Repe ated and verified. Performed By: #### L 200.42546 #### [facility] [address] [place] [address] MONO ABS 0.30 K/CU MM Normal 0.1-1.1 [facility] Comment on above: Order Comment: Campu s: M Performed By: #### L 200.09689 #### [facility] [address] [place] [address] Monocytes/100 WBC (Bld) 2.8 % Normal 2-10 M [facility] Comment on above: Order Comment: Campu s: M Performed By: #### L 200.30447 #### [facility] [address] [place] [address] NEUTROPHIL ABS 10.30 K/CU MM High 2.0-8.3 [facility] Comment on above: Order Comment: Campu s: M Performed By: #### L 200.69248 #### [facility] [address] [place] [address] Neutrophils/100 WBC (Bld) 91.8 % High 45-75 [facility] Comment on above: Order Comment: Campu s: M Performed By: #### L 200.75663 #### [facility] [address] [place] [address] Nucleated RBC/100 WBC (Bld) [Ratio] 0.0 % Normal Less than 1 [facility] Comment on above: Order Comment: Campu s: M Performed By: #### L 200.25216 #### [facility] [address] [place] [address] Platelet mean volume (Bld) [Entitic vol] 10.6 fL Normal 9.4-12.4 [facility] Comment on above: Order Comment: Campu s: M Performed By: #### L 200.02667 #### [facility] [address] [place] [address] PLT 297 K/CU MM Normal 150-450 [facility] Comment on above: Order Comment: Campu s: M Performed By: #### L 200.28725 #### [facility] [address] [place] [address] RBC 3.19 M/CU MM Low 3.90-5.30 [facility] Comment on above: Order Comment: Campu s: M Performed By: #### L 200.17541 #### [facility] [address] [place] [address] WBC 11.2 K/CUMM High 4.5-11.0 [facility] Comment on above: Order Comment: Campu s: M Performed By: #### L 200.10202 #### [facility] [address] [place] [address] CT ABD/PEL W IV CONTRAST ONL Yon 12-20-2021 CT ABD/PEL W IV CONTRAST ONLY EXAMINATION: CT ABDOMEN AND PELVIS WITH IV CONTRAST CLINICAL HISTORY: Abdominal pain. Recent bowel surgery, adhesion removed with resection. Nausea and vomiting today. Fever. Prior hysterectomy and cholecystectomy. TECHNIQUE: CT of the abdomen and pelvis was performed using standard technique, scanning from just above the dome of the diaphragm to the symphysis pubis. MQ: CTAP_3 Contrast: IV: 100 ml of Isovue-300 CT Radiation dose: Integrated Dose-length product (DLP) for this visit = 628.16 mGy*cm. CT Dose Reduction Employed: Per protocol. COMPARISON: CT abdomen and pelvis 10/28/2009. RESULT: Liver: No hepatomegaly. Hepatic margins are smooth. Centimeter hypodensity within the right hepatic lobe is too small to characterize but stable from the prior study, likely a small cyst or hemangioma. No liver mass. Biliary: Mild prominence of the central intrahepatic and hepatic bile ducts. The common bile duct measures 0.8 cm in diameter which is just above the normal range for patient's age. The gallbladder is surgically absent. Spleen: No mass. No splenomegaly. Pancreas: No mass or duct dilation. Adrenals: No mass. Kidneys: The kidneys enhance symmetrically. There are subcentimeter hypodensities bilaterally which are too small to characterize, statistically small cyst. No calculus or hydronephrosis. GI tract and mesentery: There are sutures related to a bowel anastomosis within the lower abdomen anteriorly. There is a mild degree of wall thickening apparent at the anastomosis. There is mild adjacent mesenteric edema. There are no dilated segments of bowel. Nonvisualized appendix. No ascites or pneumoperitoneum. Lymph nodes: No abdominal or pelvic lymphadenopathy. Retroperitoneum: No mass. Vasculature: The abdominal aorta is normal in caliber with minimal atherosclerotic calcification proximally. The celiac, SMA, hepatic veins, portal veins, superior mesenteric vein and splenic vein are patent. Pelvis: Unremarkable urinary bladder. No mass or fluid collection. The uterus is surgically absent. Bones/Soft Tissues: There is a midline abdominal scar extending above and below the umbilicus. There is mild increased attenuation stranding within the adjacent soft tissues. No fluid collection or soft tissue gas. No acute osseous abnormality. There are degenerative changes present at the hips. There is mild degenerative disc disease at L5-S1. There is lower lumbar degenerative facet arthropathy. Lower thorax: Mild dependent atelectasis. No pleural or pericardial effusions. Heart size is within normal limits. Information Coordinator (topogram) images: No additional findings. IMPRESSION: 1. Mild wall thickening at the small bowel anastomosis within the anterior right lower abdomen with mild adjacent mesenteric edema. There is edema along the midline abdominal scar. The findings may relate to the sequela of recent surgery. No fluid collection or bowel obstruction. 2. Prior cholecystectomy. Mild central intrahepatic and extra hepatic bile duct prominence is noted which probably relates to age-related and postcholecystectomy ectasia. 3. Additional chronic and incidental findings as above. This report was electronically signed by Paulo Valadez MD 12/20/2021 2:02 PM Reported By: PAULO VALADEZ M.D. Signed By: PAULO VALADEZ M.D. [facility] 12-20-2021 EMERGENCY PHYSICIAN REPORT This is a preliminary report only, as the practitioner review and authentication has not occurred. Normal [facility] PHYSICIAN ASSESSMENT RECORDS : FlexChartData Event Time: 12/20/2021 13:05 [facility] Status: Signed [facility] Kaitlyn Escobar [[id number]] Mid-Level Chart (V2b) 71 / F / 1950 Chart created at 12/20/2021 12:54 by Aly Granados PA-C Chart closed at 12/20/2021 14:02 Entry in Emergency Department at 12/20/2021 12:19, departure at 12/20/2021 15:46 Patient Name: Kaitlyn Escobar Record Number: [id number] Date: 12/20/2021 12:54 Entered Department at: 12/20/2021 12:19 Patient Seen at: 12/20/2021 12:58 Historian: Patient Chief Complaint:c/o left upper abdominal pain, at [facility] for bowl obst. surgery. was suppose to go home today. n/v today after started on mechanical soft diet. Nursing triage/initial assessment reviewed and confirmed and Initial Vital Signs reviewed. Temperature: 99.1 F (37.3 C). Pulse: 110. Respiratory Rate: 20. Blood-pressure: 131/74. Oxygen Saturation: 97%. History of Present Illness: 71-Year-old female presents emergency department via EMS from [facility]. About 2 months ago she had a bowel obstruction that needed resected by Dr. Jaswant Moseley at [facility]. She did well was discharged but then developed an infection and questionable abscess. She was readmitted. She was [facility] PATIENT NAME: KAITLYN ESCOBAR I [address] MEDICAL REC #: [id number] [place] [id number] EMERGENCY DEPARTMENT REPORT EMERGENCY DEPARTMENT PHYSICIAN started on TPN at that time.. She needed no further surgical intervention but states that the initial resection was quite complicated as far as length of procedure and severity according to her. She states she saw her surgeon yesterday who discharged her from [facility] she was supposed to go home today. She states about 4 days ago her TPN infusion clogged so she was started on mechanical soft diet she was doing well until this morning she had small bits of hand that was chopped up as well as waffle and a protein shake. At that point she developed abdominal pain she reports diffuse abdominal pain worse in the center of abdomen that radiates into her low back. She states she is passing very little gas. No bloody stools. She reports nausea and vomited at the nursing facility stomach contents. She denies fevers. She states she was feeling well up until today. No shortness of breath chest pain palpitations falls or injuries. No urinary symptoms. Review of Systems. All other systems reviewed and negative.. Past History, Medications, Allergies, Social History and Family History reviewed in nurses note. Medications: Reviewed RN Note. Allergies: Reviewed RN Note Codeine(Get Sick), Morphine(Get Sick), Latex(Anaphylactic Reaction), Darvocet(Unknown), Vicodin(Abnormal Behavior), Compazine(muscle spasms), Levaquin(Unknown), omnicef(Hives), Toradol(Unknown), Dilaudid(Difficulty Breathing) Social History: Reviewed RN Note. Family History: Reviewed RN Note Physical Examination: General: Alert and Well Developed; Uncomfortable secondary to pain, responding to questions appropriately, good historian HEENT: Normal ENT inspection. Eyes: Lids Normal; . Neck: No Meningismus and Supple Respiratory: No Resp Distress, Chest non-tender and Normal Breath Sounds Cardio-Vascular: No rub; Tachycardic regular [facility] PATIENT NAME: KAITLYN ESCOBAR I [address] [address] MEDICAL REC #: [id number] [place] [address] EMERGENCY DEPARTMENT REPORT EMERGENCY DEPARTMENT PHYSICIAN rhythm Abdomen: Multiple abdominal surgical scarring all appears to be well-healed. Bowel sounds auscultated but very minimally. She has diffuse abdominal discomfort without rigidity. She is doing worse in the periumbilical region. LACTATE BLOOD, information as of 12/20/2021, 12:38 pm LACTATE BLOOD: 2.04 Mmol/L CBC W/DIFF, information as of 12/20/2021, 1:11 pm 90.6 / 9.4* / 11.2* andgt;------andlt; 297 / 28.9* / N:91.8* BASO ABS: 0.00 K/Cu Mm; BASOPHIL %: 0.3 %; EOS ABS: 0.00 K/Cu Mm; EOSINOPHIL %: 0.0 %; IMMATR GRAN ABS: 0.10 K/Cu Mm; IMMATURE GRAN %: 1.2 %; LYMPH %: 3.9 %; LYMPH ABS: 0.40 K/Cu Mm; MCHC: 32.5 Gm/Dl; MONO ABS: 0.30 K/Cu Mm; MONOCYTE %: 2.8 %; MPV: 10.6; NEUTROPHIL ABS: 10.30 K/Cu Mm; NRBC: 0.0 %; RBC: 3.19 M/Cu Mm; RDW: 14.9 BMP, information as of 12/20/2021, 1:11 pm 141 --------+--------+---- ----andlt; 102* Anion Gap = 11 3.5 BUN/CREA: 11; CALCIUM TOTAL: 8.4 Mg/Dl Imaging Study Obtained: CT ABD/PEL W IV CONTRAST ONLY Radiology: Image Reviewed and Interpreted by Radiologist. Re-Evaluation: 12:57: Dr. Jaswant Moseley [phone]. 13:19: Patient is had most of her medical care by her surgeon (more content not included)... Normal [facility] [place] GFR ESTon 12-20-2021 IF AMER 59 Normal [facility] Comment on above: Order Comment: Campu s: M Performed By: #### L 500.66457, L500.70695, L500.79377, L550.92234 #### [facility] [address] [place] [address] IF non-AFR AMER 49 Normal [facility] Comment on above: Order Comment: Campu s: M Performed By: #### L 500.37552, L500.60368, L500.96240, L550.17021 #### [facility] [facility] [address] [place] [address] 21906 LACTATE BLOODon 12-20-2021 LACTATE BLOOD 2.04 MMOL/L High 0.40-2.00 [facility] Comment on above: Order Comment: Campu s: M Performed By: #### L 500.76609, L500.34948, L500.44793, L550.09056 #### [facility] [address] [place] [address] [id number] 12-20-2021 SARS-CoV-2 (COVID-19) RNA RENATA+probe Ql (Unsp spec) Negative Invalid Interpretation Code Negative [facility] Comment on above: Order Comment: Campu s: M Result Comment: RESU LTS CALLED TO AND READ BACK BY DWIGHT MCFARLAND AT 1530 12/20/21 BY AIDEN CARRERO Negative results do not preclude SARS-CoV-2 infection and should not be used as the sole basis for treatment or other patient management decisions. Negative results must be combined with clinical observation, patient history, and epidemiological information. This test was performed by PCR. Performed By: #### L 550.73202, L500.49430, L500.54903, L500.24927 #### [facility] [place] [address] BMPon 12-19-2021 Anion gap [Moles/Vol] 9 mmol/L Normal 5-16 [facility] Comment on above: Performed By: #### L 550.79864, L500.57455, L500.67212, L500.98355 #### [facility] [address] [place] [address] Calcium [Mass/Vol] 8.5 mg/dL Normal 8.5-10.5 [facility] Comment on above: Result Comment: NOTE NEW NORMAL RANGE DUE TO REAGENT CHANGE Performed By: #### L 550.43416, L500.07329, L500.77619, L500.07466 #### [facility] [address] [place] [address] Chloride [Moles/Vol] 112 mmol/L High 98-107 [facility] Comment on above: Performed By: #### L 550.16505, L500.60233, L500.93179, L500.06789 #### [facility] [address] [place] [address] CO2 [Moles/Vol] 22.0 mmol/L Normal 21-32 [facility] Comment on above: Performed By: #### L 550.05161, L500.21902, L500.56179, L500.79410 #### [facility] [address] [place] [address] Creatinine [Mass/Vol] 0.95 mg/dL Normal 0.510-0.950 [facility] Comment on above: Result Comment: Joanie ents receiving either N-Acetylcysteine (NAC) or Metamizole prior to venipuncture, may have falsely depressed results. Performed By: #### L 550.36228, L500.63237, L500.19172, L500.38749 #### [facility] [address] [place], [place] [id number] Glucose [Mass/Vol] 116 mg/dL High 70-100 [facility] Comment on above: Result Comment: 70-1 00- Normal Fasting; 100-125 Impaired Fasting; greater than 126 on more than one result- Diabetes. ADA guidelines. Results may be falsely elevated after the administration of Sulfapyridine. Results may be falsely depressed after the administration of Sulfasalazine. Performed By: #### L 550.10668, L500.19582, L500.79625, L500.62986 #### [facility] [address] [place] [address] 29744 Potassium [Moles/Vol] 3.8 mmol/L Normal 3.5-5.1 [facility] Comment on above: Result Comment: Slig ht Hemolysis, Result may be affected. Performed By: #### L 550.18464, L500.94941, L500.78836, L500.56916 #### [facility] [address] [place] [address] Sodium [Moles/Vol] 143 mmol/L Normal 136-145 [facility] Comment on above: Performed By: #### L 550.17682, L500.07676, L500.31880, L500.20065 #### [facility] [address] [place] [address] 83549 Urea nitrogen [Mass/Vol] 12 mg/dL Normal 7-26 [facility] Comment on above: Performed By: #### L 550.42208, L500.26488, L500.50426, L500.66625 #### [facility] [address] [place], [place] [address] Urea nitrogen/Creatinine [Mass ratio] 13 mg/mg Low 15-24 [facility] Comment on above: Performed By: #### L 550.77628, L500.67438, L500.77933, L500.31127 #### [facility] [address] [place] [address] 30551 CBCon 12-19-2021 Erythrocyte distribution width (RBC) [Ratio] 15.2 % High 11-14.5 [facility] Comment on above: Performed By: #### L 500.41953, L500.60332, L500.05217, L550.54886 #### [facility] [address] [place] [address] Hematocrit (Bld) [Volume fraction] 31.8 % Low 35.0-47.0 [facility] Comment on above: Performed By: #### L 500.64284, L500.86145, L500.46696, L550.85574 #### [facility] [address] [place] [address] Hemoglobin (Bld) [Mass/Vol] 9.6 g/dL Low 11.5-15.5 [facility] Comment on above: Performed By: #### L 500.48345, L500.97694, L500.03767, L550.08181 #### [facility] [address] [place] [address] MCHC (RBC) [Mass/Vol] 30.2 g/dL Low 32.0-36.0 [facility] Comment on above: Performed By: #### L 500.08282, L500.32594, L500.06333, L550.73425 #### [facility] [address] [place] [address] MCV (RBC) [Entitic vol] 97.2 fL Normal 80.0-99.0 [facility] Comment on above: Performed By: #### L 500.89764, L500.63959, L500.58733, L550.34438 #### [facility] [address] [place] [address] Nucleated RBC/100 WBC (Bld) [Ratio] 0.0 % Normal Less than 1 [facility] Comment on above: Performed By: #### L 500.52193, L500.52851, L500.54988, L550.57335 #### [facility] [address] [place] [address] 78082 Platelet mean volume (Bld) [Entitic vol] 12.4 fL Normal 9.4-12.4 [facility] Comment on above: Performed By: #### L 500.07470, L500.73469, L500.09080, L550.55016 #### [facility] [address] [place] [address] PLT 299 K/CU MM Normal 150-450 [facility] Comment on above: Performed By: #### L 500.59277, L500.37511, L500.41844, L550.93927 #### [facility] [address] [place] [address] RBC 3.27 M/CU MM Low 3.90-5.30 [facility] Comment on above: Performed By: #### L 500.89618, L500.75611, L500.94520, L550.80272 #### [facility] [address] [place] [address] 72914 WBC 5.8 K/CUMM Normal 4.5-11.0 [facility] Comment on above: Performed By: #### L 500.70693, L500.55129, L500.85606, L550.82717 #### [facility] [address] [place], [place] [address] CHOLon 12-19-2021 CHOL 156 MG/dL Normal 0-199 [facility] Comment on above: Performed By: #### L 550.68115, L500.20425, L500.65742, L500.57032 #### [facility] [address] [place], [place] [address] GFR ESTon 12-19-2021 IF AMER Greater than 60 Normal [facility] Comment on above: Performed By: #### L 550.55762, L500.04555, L500.77350, L500.52330 #### [facility] [address] [place] [address] IF non-AFR AMER 58 Normal [facility] Comment on above: Performed By: #### L 550.99334, L500.38091, L500.11558, L500.58390 #### [facility] [address] [place] [address] LDHon 12-19-2021 LDH 200 U/L Normal 84-246 [facility] Comment on above: Performed By: #### L 550.41235, L500.94578, L500.18212, L500.17960 #### [facility] [address] [place] [address] PHOSon 12-19-2021 Phosphate [Mass/Vol] 4.30 mg/dL Normal 2.5-4.9 [facility] Comment on above: Result Comment: Elev ated m-protein (paraprotein) levels in the serum may be exhibited in patients with monoclonal gammopathies, causing falsely elevated inorganic phosphorus results. Performed By: #### L 550.31127, L500.26196, L500.82506, L500.01908 #### [facility] [address] [place] [address] PREALBon 12-19-2021 PREALB 26 MG/DL Normal 20-40 [facility] Comment on above: Performed By: #### L 550.46003, L500.84282, L500.03090, L500.54655 #### [facility] [address] [place], [place] [id number] PTon 12-19-2021 INR Coag (PPP) [Relative time] 0.98 {INR} Normal 0.9-1.1 [facility] Comment on above: Result Comment: Az mmended PT INR therapeutic range for correction and prophylactic therapy is 2.0 - 3.0. For heart valve and shunt patients the range is 2.5 - 3.5. Performed By: #### L 550.49639, L500.27318, L500.50322, L500.39438 #### [facility] [place] [id number] PTS 10.7 SECONDS Normal 9.5-12.0 [facility] Comment on above: Performed By: #### L 550.02162, L500.31132, L500.02363, L500.25809 #### [facility] [address] [place] [address] SGOT (AST)on 12-19-2021 AST [Catalytic activity/Vol] 78 U/L High 8-34 [facility] Comment on above: Result Comment: RESU LTS MAY BE FALSELY DEPRESSED AFTER THE ADMINISTRATION OF SULFASALAZINE AND/OR SULFAPYRIDINE. Performed By: #### L 550.26893, L500.05751, L500.97633, L500.43518 #### [facility] [address] [place] [address] SGPT (ALT)on 12-19-2021 ALT [Catalytic activity/Vol] 76 U/L High 13-61 [facility] Comment on above: Result Comment: RESU LTS MAY BE FALSELY DEPRESSED AFTER THE ADMINISTRATION OF SULFASALAZINE AND/OR SULFAPYRIDINE. Performed By: #### L 550.65867, L500.84170, L500.64628, L500.86696 #### [facility] [address] [place] [address] TPon 12-19-2021 Protein [Mass/Vol] 5.6 g/dL Low 6.0-8.5 [facility] Comment on above: Performed By: #### L 550.92050, L500.16772, L500.62610, L500.85771 #### [facility] [address] [place], [place] [id number] TRIGon 12-19-2021 Triglyceride [Mass/Vol] 113 mg/dL Normal 30-149 [facility] Comment on above: Result Comment: Joanie ents receiving either N-Acetylcysteine (NAC) or Metamizole prior to venipuncture, may have falsely depressed results. Performed By: #### L 550.29137, L500.03774, L500.21719, L500.75057 #### [facility] [address] [place] [address] BMPon 12-15-2021 Anion gap [Moles/Vol] 12 mmol/L Normal 5-16 [facility] Comment on above: Performed By: #### L 550.40094, L500.31394, L500.64389, L500.02076 #### [facility] [address] [place] [address] Calcium [Mass/Vol] 8.9 mg/dL Normal 8.5-10.5 [facility] Comment on above: Result Comment: NOTE NEW NORMAL RANGE DUE TO REAGENT CHANGE Performed By: #### L 550.44975, L500.31432, L500.52507, L500.35431 #### [facility] [address] [place] [address] Chloride [Moles/Vol] 111 mmol/L High 98-107 [facility] Comment on above: Performed By: #### L 550.90369, L500.31497, L500.58657, L500.92555 #### [facility] [address] [place] [address] 00189 CO2 [Moles/Vol] 18.0 mmol/L Low 21-32 [facility] Comment on above: Performed By: #### L 550.66984, L500.60818, L500.67094, L500.02368 #### [facility] [address] [place] [address] Creatinine [Mass/Vol] 0.95 mg/dL Normal 0.510-0.950 [facility] Comment on above: Result Comment: Joanie ents receiving either N-Acetylcysteine (NAC) or Metamizole prior to venipuncture, may have falsely depressed results. Performed By: #### L 550.10056, L500.59501, L500.03983, L500.88722 #### [facility] [place] [address] Glucose [Mass/Vol] 129 mg/dL High 70-100 [facility] Comment on above: Result Comment: 70-1 00- Normal Fasting; 100-125 Impaired Fasting; greater than 126 on more than one result- Diabetes. ADA guidelines. Results may be falsely elevated after the administration of Sulfapyridine. Results may be falsely depressed after the administration of Sulfasalazine. Performed By: #### L 550.52044, L500.30159, L500.79869, L500.23019 #### [facility] [place] [address] Potassium [Moles/Vol] 4.1 mmol/L Normal 3.5-5.1 [facility] Comment on above: Result Comment: Slig ht Hemolysis, Result may be affected. Performed By: #### L 550.58625, L500.42597, L500.86040, L500.21947 #### [facility] [place] [address] Sodium [Moles/Vol] 140 mmol/L Normal 136-145 [facility] Comment on above: Performed By: #### L 550.78956, L500.18374, L500.58703, L500.35209 #### [facility] [place] [address] Urea nitrogen [Mass/Vol] 23 mg/dL Normal 7-26 [facility] Comment on above: Performed By: #### L 550.97737, L500.71566, L500.32830, L500.53939 #### [facility] [address] [place] [address] Urea nitrogen/Creatinine [Mass ratio] 24 mg/mg Normal 15-24 [facility] Comment on above: Performed By: #### L 550.54215, L500.73160, L500.64249, L500.16972 #### [facility] [address] [place] [address] GFR ESTon 12-15-2021 IF AMER Greater than 60 Normal [facility] Comment on above: Performed By: #### L 550.96937, L500.71265, L500.70555, L500.28450 #### [facility] [address] [place] [address] IF non-AFR AMER 58 Normal [facility] Comment on above: Performed By: #### L 550.42538, L500.31574, L500.07574, L500.90520 #### [facility] [address] [place] [address] MAGNESIUMon 12-15-2021 Magnesium [Mass/Vol] 1.9 mg/dL Normal 1.6-2.6 [facility] Comment on above: Performed By: #### L 550.95399, L500.83314, L500.66182, L500.35127 #### [facility] [address] [place] [address] PREALBon 12-15-2021 PREALB 32 MG/DL Normal 20-40 [facility] Comment on above: Performed By: #### L 550.25694, L500.81257, L500.38657, L500.52542 #### [facility] [address] [place] [address] PTon 12-15-2021 INR Coag (PPP) [Relative time] 1.00 {INR} Normal 0.9-1.1 [facility] Comment on above: Result Comment: Az mmended PT INR therapeutic range for correction and prophylactic therapy is 2.0 - 3.0. For heart valve and shunt patients the range is 2.5 - 3.5. Performed By: #### L 550.04855, L500.30611, L500.24359, L500.66499 #### [facility] [address] [place] [address] PTS 10.9 SECONDS Normal 9.5-12.0 [facility] Comment on above: Performed By: #### L 550.68796, L500.40579, L500.00470, L500.90480 #### [facility] [address] [place] [address] BMPon 12-12-2021 Anion gap [Moles/Vol] 9 mmol/L Normal 5-16 [facility] Comment on above: Performed By: #### L 550.23772, L500.80826, L500.05855, L500.32643 #### [facility] [address] [place] [address] Calcium [Mass/Vol] 9.3 mg/dL Normal 8.5-10.5 [facility] Comment on above: Result Comment: NOTE NEW NORMAL RANGE DUE TO REAGENT CHANGE Performed By: #### L 550.39149, L500.52960, L500.00004, L500.01208 #### [facility] [address] [place] [address] Chloride [Moles/Vol] 108 mmol/L High 98-107 [facility] Comment on above: Performed By: #### L 550.06660, L500.03421, L500.13765, L500.36554 #### [facility] [address] [place], [place] [address] CO2 [Moles/Vol] 23.0 mmol/L Normal 21-32 [facility] Comment on above: Performed By: #### L 550.38197, L500.26410, L500.58303, L500.92332 #### [facility] [address] [place] [address] Creatinine [Mass/Vol] 1.02 mg/dL High 0.510-0.950 [facility] Comment on above: Result Comment: Joanie ents receiving either N-Acetylcysteine (NAC) or Metamizole prior to venipuncture, may have falsely depressed results. Performed By: #### L 550.28392, L500.35839, L500.50684, L500.55389 #### [facility] [address] [place] [address] Glucose [Mass/Vol] 115 mg/dL High 70-100 [facility] Comment on above: Result Comment: 70-1 00- Normal Fasting; 100-125 Impaired Fasting; greater than 126 on more than one result- Diabetes. ADA guidelines. Results may be falsely elevated after the administration of Sulfapyridine. Results may be falsely depressed after the administration of Sulfasalazine. Performed By: #### L 550.39970, L500.20957, L500.24783, L500.66120 #### [facility] [address] [place] [address] Potassium [Moles/Vol] 4.4 mmol/L Normal 3.5-5.1 [facility] Comment on above: Performed By: #### L 550.73941, L500.01838, L500.91904, L500.31219 #### [facility] [address] [place], [place] [address] Sodium [Moles/Vol] 140 mmol/L Normal 136-145 [facility] Comment on above: Performed By: #### L 550.42060, L500.44781, L500.93240, L500.05367 #### [facility] [address] [place] [address] Urea nitrogen [Mass/Vol] 22 mg/dL Normal 7-26 [facility] Comment on above: Performed By: #### L 550.57644, L500.71938, L500.72879, L500.83730 #### [facility] [address] [place] [address] Urea nitrogen/Creatinine [Mass ratio] 22 mg/mg Normal 15-24 [facility] Comment on above: Performed By: #### L 550.97738, L500.02442, L500.33713, L500.25195 #### [facility] [address] [place] [address] CBCon 12-12-2021 Erythrocyte distribution width (RBC) [Ratio] 15.0 % High 11-14.5 [facility] Comment on above: Performed By: #### L 500.54802, L500.99074, L500.49427, L550.14128 #### [facility] [address] [place] [address] Hematocrit (Bld) [Volume fraction] 30.3 % Low 35.0-47.0 [facility] Comment on above: Performed By: #### L 500.05870, L500.69574, L500.50960, L550.87349 #### [facility] [address] [place] [address] Hemoglobin (Bld) [Mass/Vol] 10.0 g/dL Low 11.5-15.5 [facility] Comment on above: Performed By: #### L 500.98637, L500.59616, L500.61722, L550.31453 #### [facility] [address] [place] [address] MCHC (RBC) [Mass/Vol] 33.0 g/dL Normal 32.0-36.0 [facility] Comment on above: Performed By: #### L 500.20148, L500.44151, L500.35013, L550.28723 #### [facility] [address] [place] [address] MCV (RBC) [Entitic vol] 90.2 fL Normal 80.0-99.0 [facility] Comment on above: Performed By: #### L 500.44800, L500.70280, L500.69110, L550.23701 #### [facility] [address] [place] [address] Nucleated RBC/100 WBC (Bld) [Ratio] 0.0 % Normal Less than 1 [facility] Comment on above: Performed By: #### L 500.42686, L500.20414, L500.02576, L550.12100 #### [facility] [address] [place] [address] Platelet mean volume (Bld) [Entitic vol] 11.1 fL Normal 9.4-12.4 [facility] Comment on above: Performed By: #### L 500.38871, L500.30388, L500.97349, L550.80504 #### [facility] [address] [place] [address] PLT 373 K/CU MM Normal 150-450 [facility] Comment on above: Performed By: #### L 500.33198, L500.11656, L500.82977, L550.66505 #### [facility] [address] [place] [address] RBC 3.36 M/CU MM Low 3.90-5.30 [facility] Comment on above: Performed By: #### L 500.93513, L500.96109, L500.39297, L550.98575 #### [facility] [address] [place], [place] [address] WBC 8.5 K/CUMM Normal 4.5-11.0 [facility] Comment on above: Performed By: #### L 500.64352, L500.75729, L500.32032, L550.99647 #### [facility] [address] [place], [place] [address] CHOLon 12-12-2021 CHOL 194 MG/dL Normal 0-199 [facility] Comment on above: Performed By: #### L 550.28012, L500.11040, L500.69451, L500.65097 #### [facility] [address] [place] [address] GFR ESTon 12-12-2021 IF AMER Greater than 60 Normal [facility] Comment on above: Performed By: #### L 550.00596, L500.24856, L500.06677, L500.12270 #### [facility] [address] [place] [address] IF non-AFR AMER 54 Normal [facility] Comment on above: Performed By: #### L 550.54233, L500.36530, L500.75928, L500.27600 #### [facility] [address] [place] [address] LDHon 12-12-2021 LDH 234 U/L Normal 84-246 [facility] Comment on above: Performed By: #### L 550.69225, L500.99149, L500.56130, L500.22169 #### [facility] [address] [place], [place] [address] PHOSon 12-12-2021 Phosphate [Mass/Vol] 4.40 mg/dL Normal 2.5-4.9 [facility] Comment on above: Result Comment: Elev ated m-protein (paraprotein) levels in the serum may be exhibited in patients with monoclonal gammopathies, causing falsely elevated inorganic phosphorus results. Performed By: #### L 550.09775, L500.26557, L500.98148, L500.38915 #### [facility] [place] [id number] PREALBon 12-12-2021 PREALB 35 MG/DL Normal 20-40 [facility] Comment on above: Performed By: #### L 550.33470, L500.61331, L500.23177, L500.23016 #### [facility] [address] [place] [address] PTon 12-12-2021 INR Coag (PPP) [Relative time] 0.91 {INR} Normal 0.9-1.1 [facility] Comment on above: Result Comment: Az mmended PT INR therapeutic range for long term care administrator and prophylactic therapy is 2.0 - 3.0. For heart valve and shunt patients the range is 2.5 - 3.5. Performed By: #### L 200.31886 #### [facility] [address] [place] [address] PTS 10.0 SECONDS Normal 9.5-12.0 [facility] Comment on above: Performed By: #### L 200.64216 #### [facility] [address] [place] [address] SGOT (AST)on 12-12-2021 AST [Catalytic activity/Vol] 114 U/L High 8-34 [facility] Comment on above: Result Comment: RESU LTS MAY BE FALSELY DEPRESSED AFTER THE ADMINISTRATION OF SULFASALAZINE AND/OR SULFAPYRIDINE. Performed By: #### L 550.03020, L500.87871, L500.03234, L500.56999 #### [facility] [place] [address] SGPT (ALT)on 12-12-2021 ALT [Catalytic activity/Vol] 112 U/L High 13-61 [facility] Comment on above: Result Comment: RESU LTS MAY BE FALSELY DEPRESSED AFTER THE ADMINISTRATION OF SULFASALAZINE AND/OR SULFAPYRIDINE. Performed By: #### L 550.26888, L500.89523, L500.96898, L500.34166 #### [facility] [place] [address] TPon 12-12-2021 Protein [Mass/Vol] 6.5 g/dL Normal 6.0-8.5 [facility] Comment on above: Performed By: #### L 550.02319, L500.09860, L500.48594, L500.42189 #### [facility] [address] [place] [id number] TRIGon 12-12-2021 Triglyceride [Mass/Vol] 129 mg/dL Normal 30-149 [facility] Comment on above: Result Comment: Joanie ents receiving either N-Acetylcysteine (NAC) or Metamizole prior to venipuncture, may have falsely depressed results. Performed By: #### L 550.91499, L500.69026, L500.46740, L500.69006 #### [facility] [address] [place] [id number] BMPon 12-08-2021 Anion gap [Moles/Vol] 10 mmol/L Normal 5-16 [facility] Comment on above: Performed By: #### L 500.20616, L500.98843, L500.09481, L550.11225 #### [facility] [address] [place] [address] [id number] Calcium [Mass/Vol] 8.8 mg/dL Normal 8.5-10.5 [facility] Comment on above: Result Comment: NOTE NEW NORMAL RANGE DUE TO REAGENT CHANGE Performed By: #### L 500.19304, L500.31033, L500.92543, L550.67826 #### [facility] [address] [place] [address] Chloride [Moles/Vol] 111 mmol/L High 98-107 [facility] Comment on above: Performed By: #### L 500.33004, L500.04716, L500.79267, L550.13202 #### [facility] [place] [address] CO2 [Moles/Vol] 22.0 mmol/L Normal 21-32 [facility] Comment on above: Performed By: #### L 500.09871, L500.04105, L500.86550, L550.05066 #### [facility] [address] [place] [address] Creatinine [Mass/Vol] 0.96 mg/dL High 0.510-0.950 [facility] Comment on above: Result Comment: Joanie ents receiving either N-Acetylcysteine (NAC) or Metamizole prior to venipuncture, may have falsely depressed results. Performed By: #### L 500.47984, L500.65165, L500.48719, L550.30189 #### [facility] [address] [place] [address] Glucose [Mass/Vol] 123 mg/dL High 70-100 [facility] Comment on above: Result Comment: 70-1 00- Normal Fasting; 100-125 Impaired Fasting; greater than 126 on more than one result- Diabetes. ADA guidelines. Results may be falsely elevated after the administration of Sulfapyridine. Results may be falsely depressed after the administration of Sulfasalazine. Performed By: #### L 500.33440, L500.03852, L500.28182, L550.82398 #### [facility] [place] [address] Potassium [Moles/Vol] 4.1 mmol/L Normal 3.5-5.1 [facility] Comment on above: Performed By: #### L 500.21777, L500.21528, L500.36783, L550.71575 #### [facility] [address] [place], [place] [address] Sodium [Moles/Vol] 143 mmol/L Normal 136-145 [facility] Comment on above: Performed By: #### L 500.03832, L500.49963, L500.14724, L550.71823 #### [facility] [address] [place] [address] Urea nitrogen [Mass/Vol] 20 mg/dL Normal 7-26 [facility] Comment on above: Performed By: #### L 500.88724, L500.01099, L500.11599, L550.05949 #### [facility] [address] [place] [address] Urea nitrogen/Creatinine [Mass ratio] 21 mg/mg Normal 15-24 [facility] Comment on above: Performed By: #### L 500.63442, L500.05846, L500.38173, L550.45951 #### [facility] [address] [place] [address] GFR ESTon 12-08-2021 IF AMER Greater than 60 Normal [facility] Comment on above: Performed By: #### L 500.10181, L500.81551, L500.71572, L550.71497 #### [facility] [address] [place] [address] IF non-AFR AMER 57 Normal [facility] Comment on above: Performed By: #### L 500.91116, L500.97868, L500.38771, L550.40756 #### [facility] [address] [place] [address] MAGNESIUMon 12-08-2021 Magnesium [Mass/Vol] 1.9 mg/dL Normal 1.6-2.6 [facility] Comment on above: Performed By: #### L 500.83584, L500.84470, L500.71553, L550.14332 #### [facility] [address] [place], [place] [id number] PREALBon 12-08-2021 PREALB 29 MG/DL Normal 20-40 [facility] Comment on above: Performed By: #### L 500.79830, L500.80382, L500.51001, L550.12069 #### [facility] [address] [place] [address] PTon 12-08-2021 INR Coag (PPP) [Relative time] 0.99 {INR} Normal 0.9-1.1 [facility] Comment on above: Result Comment: Az mmended PT INR therapeutic range for long term care administrator and prophylactic therapy is 2.0 - 3.0. For heart valve and shunt patients the range is 2.5 - 3.5. Performed By: #### L 500.18865, L500.10838, L500.61512, L550.49849 #### [facility] [address] [place] [address] PTS 10.8 SECONDS Normal 9.5-12.0 [facility] Comment on above: Performed By: #### L 500.15905, L500.43181, L500.47692, L550.07564 #### [facility] [address] [place] [address] BMPon 12-05-2021 Anion gap [Moles/Vol] 12 mmol/L Normal 5-16 [facility] Comment on above: Performed By: #### L 500.64904, L500.29514, L500.60553, L550.12378 #### [facility] [address] [place], [place] [address] Calcium [Mass/Vol] 8.8 mg/dL Normal 8.5-10.5 [facility] Comment on above: Result Comment: NOTE NEW NORMAL RANGE DUE TO REAGENT CHANGE Performed By: #### L 500.80364, L500.22984, L500.27278, L550.22339 #### [facility] [address] [place] [address] Chloride [Moles/Vol] 112 mmol/L High 98-107 [facility] Comment on above: Performed By: #### L 500.43582, L500.67503, L500.48173, L550.80508 #### [facility] [address] [place] [address] CO2 [Moles/Vol] 19.0 mmol/L Low 21-32 [facility] Comment on above: Performed By: #### L 500.39322, L500.05418, L500.67472, L550.76747 #### [facility] [address] [place] [address] Creatinine [Mass/Vol] 0.91 mg/dL Normal 0.510-0.950 [facility] Comment on above: Result Comment: Joanie ents receiving either N-Acetylcysteine (NAC) or Metamizole prior to venipuncture, may have falsely depressed results. Performed By: #### L 500.97944, L500.73688, L500.61147, L550.82713 #### [facility] [place] [address] Glucose [Mass/Vol] 126 mg/dL High 70-100 [facility] Comment on above: Result Comment: 70-1 00- Normal Fasting; 100-125 Impaired Fasting; greater than 126 on more than one result- Diabetes. ADA guidelines. Results may be falsely elevated after the administration of Sulfapyridine. Results may be falsely depressed after the administration of Sulfasalazine. Performed By: #### L 500.57796, L500.99508, L500.21255, L550.62281 #### [facility] [address] [place], [place] [address] Potassium [Moles/Vol] 3.8 mmol/L Normal 3.5-5.1 [facility] Comment on above: Result Comment: Slig ht Hemolysis, Result may be affected. Performed By: #### L 500.47981, L500.85543, L500.23978, L550.62863 #### [facility] [address] [place] [address] Sodium [Moles/Vol] 143 mmol/L Normal 136-145 [facility] Comment on above: Performed By: #### L 500.23440, L500.31511, L500.28502, L550.64018 #### [facility] [address] [place] [address] Urea nitrogen [Mass/Vol] 19 mg/dL Normal 7-26 [facility] Comment on above: Performed By: #### L 500.95848, L500.09418, L500.45640, L550.84802 #### [facility] [address] [place] [address] Urea nitrogen/Creatinine [Mass ratio] 21 mg/mg Normal 15-24 [facility] Comment on above: Performed By: #### L 500.74662, L500.21997, L500.87367, L550.17438 #### [facility] [address] [place], [place] [address] CBCon 12-05-2021 Erythrocyte distribution width (RBC) [Ratio] 15.8 % High 11-14.5 [facility] Comment on above: Performed By: #### L 200.41700 #### [facility] [address] [place] [address] Hematocrit (Bld) [Volume fraction] 33.4 % Low 35.0-47.0 [facility] Comment on above: Performed By: #### L 200.56230 #### [facility] [address] [place] [address] Hemoglobin (Bld) [Mass/Vol] 10.3 g/dL Low 11.5-15.5 [facility] Comment on above: Performed By: #### L 200.89023 #### [facility] [address] [place] [address] MCHC (RBC) [Mass/Vol] 30.8 g/dL Low 32.0-36.0 [facility] Comment on above: Performed By: #### L 200.95094 #### [facility] [address] [place] [address] MCV (RBC) [Entitic vol] 94.6 fL Normal 80.0-99.0 M [facility] Comment on above: Performed By: #### L 200.58422 #### [facility] [address] [place] [address] Nucleated RBC/100 WBC (Bld) [Ratio] 0.0 % Normal Less than 1 [facility] Comment on above: Performed By: #### L 200.45693 #### [facility] [address] [place] [address] Platelet mean volume (Bld) [Entitic vol] 11.9 fL Normal 9.4-12.4 [facility] Comment on above: Performed By: #### L 200.50097 #### [facility] [address] [place] [address] PLT 285 K/CU MM Normal 150-450 [facility] Comment on above: Performed By: #### L 200.22981 #### [facility] [address] [place] [address] RBC 3.53 M/CU MM Low 3.90-5.30 [facility] Comment on above: Performed By: #### L 200.66629 #### [facility] [place] [address] WBC 9.4 K/CUMM Normal 4.5-11.0 [facility] Comment on above: Performed By: #### L 200.07011 #### [facility] [place] [address] CHOLon 12-05-2021 CHOL 151 MG/dL Normal 0-199 [facility] Comment on above: Performed By: #### L 500.07983, L500.14806, L500.55524, L550.98598 #### [facility] [address] [place] [address] GFR ESTon 12-05-2021 IF AMER Greater than 60 Normal [facility] Comment on above: Performed By: #### L 500.41047, L500.76891, L500.76155, L550.71024 #### [facility] [address] [place] [address] IF non-AFR AMER Greater than 60 Normal [facility] Comment on above: Performed By: #### L 500.14392, L500.61078, L500.35557, L550.44062 #### [facility] [address] [place] [address] LDHon 12-05-2021 LDH 200 U/L Normal 84-246 [facility] Comment on above: Performed By: #### L 500.18795, L500.41562, L500.11874, L550.56195 #### [facility] [address] [place] [address] PHOSon 12-05-2021 Phosphate [Mass/Vol] 4.20 mg/dL Normal 2.5-4.9 [facility] Comment on above: Result Comment: Elev ated m-protein (paraprotein) levels in the serum may be exhibited in patients with monoclonal gammopathies, causing falsely elevated inorganic phosphorus results. Performed By: #### L 500.75875, L500.85682, L500.67593, L550.12995 #### [facility] [place] [address] PREALBon 12-05-2021 PREALB 33 MG/DL Normal 20-40 [facility] Comment on above: Performed By: #### L 500.87005, L500.94701, L500.73948, L550.16225 #### [facility] [address] [place] [address] PTon 12-05-2021 INR Coag (PPP) [Relative time] 1.00 {INR} Normal 0.9-1.1 [facility] Comment on above: Result Comment: Az mmended PT INR therapeutic range for correction and prophylactic therapy is 2.0 - 3.0. For heart valve and shunt patients the range is 2.5 - 3.5. Performed By: #### L 200.98193 #### [facility] [address] [place] [address] PTS 10.9 SECONDS Normal 9.5-12.0 [facility] Comment on above: Performed By: #### L 200.83318 #### [facility] [address] [place] [address] SGOT (AST)on 12-05-2021 AST [Catalytic activity/Vol] 74 U/L High 8-34 [facility] Comment on above: Result Comment: RESU LTS MAY BE FALSELY DEPRESSED AFTER THE ADMINISTRATION OF SULFASALAZINE AND/OR SULFAPYRIDINE. Performed By: #### L 500.46890, L500.76891, L500.27052, L550.25680 #### [facility] [place] [address] SGPT (ALT)on 12-05-2021 ALT [Catalytic activity/Vol] 78 U/L High 13-61 [facility] Comment on above: Result Comment: RESU LTS MAY BE FALSELY DEPRESSED AFTER THE ADMINISTRATION OF SULFASALAZINE AND/OR SULFAPYRIDINE. Performed By: #### L 500.33977, L500.44735, L500.56164, L550.08198 #### [facility] [place] [address] TPon 12-05-2021 Protein [Mass/Vol] 5.9 g/dL Low 6.0-8.5 [facility] Comment on above: Performed By: #### L 500.62490, L500.75071, L500.35530, L550.18802 #### [facility] [address] [place] [address] TRIGon 12-05-2021 Triglyceride [Mass/Vol] 150 mg/dL High 30-149 M [facility] Comment on above: Result Comment: Joanie ents receiving either N-Acetylcysteine (NAC) or Metamizole prior to venipuncture, may have falsely depressed results. Performed By: #### L 500.30130, L500.55848, L500.71616, L550.12810 #### [facility] [address] [place] [address] BMPon 12-01-2021 Anion gap [Moles/Vol] 7 mmol/L Normal 5-16 [facility] Comment on above: Performed By: #### L 200.83035 #### [facility] [address] [place] [address] Calcium [Mass/Vol] 8.5 mg/dL Normal 8.5-10.5 [facility] Comment on above: Result Comment: NOTE NEW NORMAL RANGE DUE TO REAGENT CHANGE Performed By: #### L 200.52384 #### [facility] [place] [address] Chloride [Moles/Vol] 112 mmol/L High 98-107 [facility] Comment on above: Performed By: #### L 200.92573 #### [facility] [address] [place] [address] CO2 [Moles/Vol] 21.0 mmol/L Normal 21-32 [facility] Comment on above: Performed By: #### L 200.14470 #### [facility] [address] [place] [address] Creatinine [Mass/Vol] 0.86 mg/dL Normal 0.510-0.950 [facility] Comment on above: Result Comment: Joanie ents receiving either N-Acetylcysteine (NAC) or Metamizole prior to venipuncture, may have falsely depressed results. Performed By: #### L 200.12259 #### [facility] [place] [address] Glucose [Mass/Vol] 135 mg/dL High 70-100 [facility] Comment on above: Result Comment: 70-1 00- Normal Fasting; 100-125 Impaired Fasting; greater than 126 on more than one result- Diabetes. ADA guidelines. Results may be falsely elevated after the administration of Sulfapyridine. Results may be falsely depressed after the administration of Sulfasalazine. Performed By: #### L 200.10713 #### [facility] [address] [place] [address] Potassium [Moles/Vol] 3.7 mmol/L Normal 3.5-5.1 [facility] Comment on above: Result Comment: Slig ht Hemolysis, Result may be affected. Performed By: #### L 200.50599 #### [facility] [address] [place] [address] Sodium [Moles/Vol] 140 mmol/L Normal 136-145 [facility] Comment on above: Performed By: #### L 200.76763 #### [facility] [address] [place] [address] Urea nitrogen [Mass/Vol] 18 mg/dL Normal 7-26 [facility] Comment on above: Performed By: #### L 200.23576 #### [facility] [address] [place], [place] [address] Urea nitrogen/Creatinine [Mass ratio] 21 mg/mg Normal 15-24 [facility] Comment on above: Performed By: #### L 200.76491 #### [facility] [address] [place] [address] GFR ESTon 12-01-2021 IF AMER Greater than 60 Normal [facility] Comment on above: Performed By: #### L 200.63617 #### [facility] [address] [place] [address] IF non-AFR AMER Greater than 60 Normal [facility] Comment on above: Performed By: #### L 200.82684 #### [facility] [address] [place] [address] MAGNESIUMon 12-01-2021 Magnesium [Mass/Vol] 1.7 mg/dL Normal 1.6-2.6 [facility] Comment on above: Performed By: #### L 200.71172 #### [facility] [address] [place] [address] PREALBon 12-01-2021 PREALB 31 MG/DL Normal 20-40 [facility] Comment on above: Performed By: #### L 550.11805, L500.78519, L500.26997, L500.76054 #### [facility] [address] [place] [address] PTon 12-01-2021 INR Coag (PPP) [Relative time] 0.97 {INR} Normal 0.9-1.1 [facility] Comment on above: Result Comment: Az mmended PT INR therapeutic range for correction and prophylactic therapy is 2.0 - 3.0. For heart valve and shunt patients the range is 2.5 - 3.5. Performed By: #### L 500.37052, L500.89802, L500.69827, L550.93836 #### [facility] [place] [address] PTS 10.6 SECONDS Normal 9.5-12.0 [facility] Comment on above: Performed By: #### L 500.41009, L500.69938, L500.05233, L550.66590 #### [facility] [address] [place] [address] BMPon 11-28-2021 Glucose [Mass/Vol] 845 mg/dL Critically high 70-100 M [facility] Comment on above: Result Comment: Crit ical Result(s) Called at: 12:06:26 on 11/28/[address] [facility]. Called to and read back by: BARON CEDILLO 70-100- Normal Fasting; 100-125 Impaired Fasting; greater than 126 on more than one result- Diabetes. ADA guidelines. Results may be falsely elevated after the administration of Sulfapyridine. Results may be falsely depressed after the administration of Sulfasalazine. Performed By: #### L 500.48313, L500.93201, L500.42980, L550.68381 #### [facility] [address] [place] [address] Anion gap [Moles/Vol] 9 mmol/L Normal 5-16 [facility] Comment on above: Performed By: #### L 500.78331, L500.93805, L500.16764, L550.44904 #### [facility] [address] [place] [address] Calcium [Mass/Vol] 8.4 mg/dL Low 8.5-10.5 [facility] Comment on above: Result Comment: NOTE NEW NORMAL RANGE DUE TO REAGENT CHANGE Performed By: #### L 500.89985, L500.99300, L500.99422, L550.84136 #### [facility] [address] [place] [address] Chloride [Moles/Vol] 105 mmol/L Normal 98-107 [facility] Comment on above: Performed By: #### L 500.03152, L500.90403, L500.36013, L550.42449 #### [facility] [place] [address] CO2 [Moles/Vol] 21.0 mmol/L Normal 21-32 [facility] Comment on above: Performed By: #### L 500.07103, L500.79988, L500.71201, L550.26654 #### [facility] [address] [place] [address] Creatinine [Mass/Vol] 1.00 mg/dL High 0.510-0.950 [facility] Comment on above: Result Comment: Joanie ents receiving either N-Acetylcysteine (NAC) or Metamizole prior to venipuncture, may have falsely depressed results. Performed By: #### L 500.43527, L500.03481, L500.59177, L550.36093 #### [facility] [address] [place] [address] Potassium [Moles/Vol] 5.4 mmol/L High 3.5-5.1 [facility] Comment on above: Result Comment: Slig ht Hemolysis, Result may be affected. Performed By: #### L 500.02078, L500.53728, L500.01902, L550.41028 #### [facility] [address] [place] [address] Sodium [Moles/Vol] 135 mmol/L Low 136-145 [facility] Comment on above: Performed By: #### L 500.43134, L500.01307, L500.03348, L550.00108 #### [facility] [address] [place] [address] Urea nitrogen [Mass/Vol] 21 mg/dL Normal 7-26 [facility] Comment on above: Result Comment: Crit ical Result(s) Called at: 12:06:26 on 11/28/[address] [facility]. Called to and read back by: BARON CEDILLO Performed By: #### L 500.98668, L500.59792, L500.90575, L550.57290 #### [facility] [address] [place] [address] Urea nitrogen/Creatinine [Mass ratio] 21 mg/mg Normal 15-24 [facility] Comment on above: Performed By: #### L 500.60317, L500.58793, L500.02960, L550.28220 #### [facility] [address] [place] [address] CBCon 11-28-2021 Erythrocyte distribution width (RBC) [Ratio] 15.3 % High 11-14.5 [facility] Comment on above: Performed By: #### L 550.77878, L500.01212, L500.56198, L500.84974 #### [facility] [address] [place] [address] Hematocrit (Bld) [Volume fraction] 28.2 % Low 35.0-47.0 [facility] Comment on above: Performed By: #### L 550.34905, L500.90238, L500.14857, L500.47030 #### [facility] [address] [place] [address] Hemoglobin (Bld) [Mass/Vol] 8.9 g/dL Low 11.5-15.5 [facility] Comment on above: Performed By: #### L 550.51081, L500.39359, L500.22552, L500.94410 #### [facility] [address] [place], [place] [address] MCHC (RBC) [Mass/Vol] 31.6 g/dL Low 32.0-36.0 [facility] Comment on above: Performed By: #### L 550.63560, L500.23427, L500.61124, L500.21710 #### [facility] [address] [place] [address] MCV (RBC) [Entitic vol] 95.9 fL Normal 80.0-99.0 M [facility] Comment on above: Performed By: #### L 550.65273, L500.91352, L500.40602, L500.97283 #### [facility] [address] [place] [address] Nucleated RBC/100 WBC (Bld) [Ratio] 0.0 % Normal Less than 1 [facility] Comment on above: Performed By: #### L 550.50323, L500.04703, L500.65132, L500.62518 #### [facility] [address] [place] [address] Platelet mean volume (Bld) [Entitic vol] 11.8 fL Normal 9.4-12.4 [facility] Comment on above: Performed By: #### L 550.93228, L500.12899, L500.79667, L500.18891 #### [facility] [address] [place] [address] PLT 334 K/CU MM Normal 150-450 [facility] Comment on above: Performed By: #### L 550.36176, L500.41904, L500.22288, L500.19823 #### [facility] [address] [place] [address] RBC 2.94 M/CU MM Low 3.90-5.30 [facility] Comment on above: Performed By: #### L 550.37886, L500.84442, L500.35881, L500.53380 #### [facility] [address] [place], [place] [address] WBC 8.9 K/CUMM Normal 4.5-11.0 [facility] Comment on above: Performed By: #### L 550.81837, L500.20509, L500.90985, L500.22364 #### [facility] [address] [place] [address] CDIF PCRon 11-28-2021 CDIF PCR Negative Normal NEGATIVE [facility] Comment on above: Result Comment: This specimen is negative for the molecular prescence of the C.difficile Gene and warrants no further testing. It is recommended that no more than one stool specimen be tested for C.Difficile by PCR per week. Performed By: #### L 550.48034, L500.01538, L500.47767, L500.33857 #### [facility] [address] [place] [address] CHOLon 11-28-2021 CHOL 141 MG/dL Normal 0-199 [facility] Comment on above: Performed By: #### L 500.03088, L500.23783, L500.74653, L550.93913 #### [facility] [address] [place] [address] GFR ESTon 11-28-2021 IF AMER Greater than 60 Normal [facility] Comment on above: Performed By: #### L 500.40875, L500.98983, L500.76243, L550.89997 #### [facility] [address] [place], [place] [id number] IF non-AFR AMER 55 Normal [facility] Comment on above: Performed By: #### L 500.25328, L500.95526, L500.15168, L550.34516 #### [facility] [address] [place], [place] [id number] LDHon 11-28-2021 LDH 182 U/L Normal 84-246 [facility] Comment on above: Performed By: #### L 500.88790, L500.47243, L500.89034, L550.23689 #### [facility] [place] [address] PHOSon 11-28-2021 Phosphate [Mass/Vol] 6.00 mg/dL High 2.5-4.9 [facility] Comment on above: Result Comment: Slig ht Lipemia, Result may be affected. Elevated m-protein (paraprotein) levels in the serum may be exhibited in patients with monoclonal gammopathies, causing falsely elevated inorganic phosphorus results. Performed By: #### L 500.63701, L500.07081, L500.86731, L550.05193 #### [facility] [address] [place] [address] PREALBon 11-28-2021 PREALB 30 MG/DL Normal 20-40 [facility] Comment on above: Performed By: #### L 500.90078, L500.93481, L500.63419, L550.71110 #### [facility] [place] [address] PTon 11-28-2021 INR Coag (PPP) [Relative time] 1.01 {INR} Normal 0.9-1.1 [facility] Comment on above: Result Comment: Az mmended PT INR therapeutic range for correction and prophylactic therapy is 2.0 - 3.0. For heart valve and shunt patients the range is 2.5 - 3.5. Performed By: #### L 300.89896 #### [facility] [address] [place] [address] PTS 11.0 SECONDS Normal 9.5-12.0 [facility] Comment on above: Performed By: #### L 300.21536 #### [facility] [address] [place] [address] SGOT (AST)on 11-28-2021 AST [Catalytic activity/Vol] 50 U/L High 8-34 [facility] Comment on above: Result Comment: RESU LTS MAY BE FALSELY DEPRESSED AFTER THE ADMINISTRATION OF SULFASALAZINE AND/OR SULFAPYRIDINE. Performed By: #### L 500.33803, L500.64414, L500.81719, L550.54149 #### [facility] [address] [place], [place] [id number] SGPT (ALT)on 11-28-2021 ALT [Catalytic activity/Vol] 48 U/L Normal 13-61 [facility] Comment on above: Result Comment: RESU LTS MAY BE FALSELY DEPRESSED AFTER THE ADMINISTRATION OF SULFASALAZINE AND/OR SULFAPYRIDINE. Performed By: #### L 500.42084, L500.94663, L500.89895, L550.96043 #### [facility] [address] [place] [address]88 TPon 11-28-2021 Protein [Mass/Vol] 5.3 g/dL Low 6.0-8.5 [facility] Comment on above: Performed By: #### L 500.44744, L500.42807, L500.25961, L550.41801 #### [facility] [address] [place] [address] TRIGon 11-28-2021 Triglyceride [Mass/Vol] 448 mg/dL High 30-149 [facility] Comment on above: Result Comment: Joanie ents receiving either N-Acetylcysteine (NAC) or Metamizole prior to venipuncture, may have falsely depressed results. Performed By: #### L 500.56956, L500.28914, L500.57914, L550.16502 #### [facility] [place] [address] BMPon 11-25-2021 Anion gap [Moles/Vol] 12 mmol/L Normal 5-16 [facility] Comment on above: Performed By: #### L 200.92621 #### [facility] [address] [place] [address] Calcium [Mass/Vol] 8.8 mg/dL Normal 8.5-10.5 [facility] Comment on above: Result Comment: NOTE NEW NORMAL RANGE DUE TO REAGENT CHANGE Performed By: #### L 200.02725 #### [facility] [address] [place] [address] Chloride [Moles/Vol] 108 mmol/L High 98-107 [facility] Comment on above: Performed By: #### L 200.67859 #### [facility] [address] [place] [address] CO2 [Moles/Vol] 22.0 mmol/L Normal 21-32 [facility] Comment on above: Performed By: #### L 200.75306 #### [facility] [address] [place] [address] Creatinine [Mass/Vol] 1.06 mg/dL High 0.510-0.950 [facility] Comment on above: Result Comment: Joanie ents receiving either N-Acetylcysteine (NAC) or Metamizole prior to venipuncture, may have falsely depressed results. Performed By: #### L 200.09370 #### [facility] [address] [place] [address] Glucose [Mass/Vol] 124 mg/dL High 70-100 [facility] Comment on above: Result Comment: 70-1 00- Normal Fasting; 100-125 Impaired Fasting; greater than 126 on more than one result- Diabetes. ADA guidelines. Results may be falsely elevated after the administration of Sulfapyridine. Results may be falsely depressed after the administration of Sulfasalazine. Performed By: #### L 200.31227 #### [facility] [address] [place] [address] Potassium [Moles/Vol] 4.2 mmol/L Normal 3.5-5.1 [facility] Comment on above: Result Comment: Slig ht Hemolysis, Result may be affected. Performed By: #### L 200.11444 #### [facility] [address] [place] [address] Sodium [Moles/Vol] 142 mmol/L Normal 136-145 [facility] Comment on above: Performed By: #### L 200.84851 #### [facility] [address] [place] [address] Urea nitrogen [Mass/Vol] 19 mg/dL Normal 7-26 [facility] Comment on above: Performed By: #### L 200.36722 #### [facility] [address] [place] [address] Urea nitrogen/Creatinine [Mass ratio] 18 mg/mg Normal 15-24 [facility] Comment on above: Performed By: #### L 200.37837 #### [facility] [address] [place] [address] CBCon 11-25-2021 Erythrocyte distribution width (RBC) [Ratio] 15.0 % High 11-14.5 [facility] Comment on above: Performed By: #### L 500.51710, L500.59534, L500.84841, L550.81809 #### [facility] [address] [place] [address] Hematocrit (Bld) [Volume fraction] 30.9 % Low 35.0-47.0 [facility] Comment on above: Performed By: #### L 500.87222, L500.20010, L500.96396, L550.70057 #### [facility] [address] [place] [address] Hemoglobin (Bld) [Mass/Vol] 9.6 g/dL Low 11.5-15.5 [facility] Comment on above: Performed By: #### L 500.56731, L500.30785, L500.48743, L550.97213 #### [facility] [address] [place] [address] MCHC (RBC) [Mass/Vol] 31.1 g/dL Low 32.0-36.0 [facility] Comment on above: Performed By: #### L 500.93663, L500.18278, L500.52087, L550.65412 #### [facility] [address] [place] [address] MCV (RBC) [Entitic vol] 93.1 fL Normal 80.0-99.0 [facility] Comment on above: Performed By: #### L 500.04188, L500.65177, L500.74200, L550.02855 #### [facility] [address] [place] [address] Nucleated RBC/100 WBC (Bld) [Ratio] 0.0 % Normal Less than 1 [facility] Comment on above: Performed By: #### L 500.68446, L500.98638, L500.69528, L550.01020 #### [facility] [address] [place] [address] Platelet mean volume (Bld) [Entitic vol] 11.0 fL Normal 9.4-12.4 [facility] Comment on above: Performed By: #### L 500.41469, L500.61828, L500.67705, L550.96616 #### [facility] [address] [place], [place] [address] PLT 433 K/CU MM Normal 150-450 [facility] Comment on above: Performed By: #### L 500.35482, L500.53878, L500.53158, L550.91644 #### [facility] [address] [place] [address] 11111 RBC 3.32 M/CU MM Low 3.90-5.30 [facility] Comment on above: Performed By: #### L 500.23358, L500.31082, L500.30321, L550.55031 #### [facility] [address] [place], [place] [address] WBC 10.4 K/CUMM Normal 4.5-11.0 [facility] Comment on above: Performed By: #### L 500.12504, L500.49038, L500.24855, L550.37320 #### [facility] [address] [place] [address] GFR ESTon 11-25-2021 IF AMER Greater than 60 Normal [facility] Comment on above: Performed By: #### L 200.72855 #### [facility] [address] [place] [address] IF non-AFR AMER 51 Normal [facility] Comment on above: Performed By: #### L 200.29248 #### [facility] [address] [place] [address] MAGNESIUMon 11-25-2021 Magnesium [Mass/Vol] 2.0 mg/dL Normal 1.6-2.6 [facility] Comment on above: Performed By: #### L 200.49669 #### [facility] [address] [place], [place] [address] PREALBon 11-25-2021 PREALB 27 MG/DL Normal 20-40 [facility] Comment on above: Performed By: #### L 200.13437 #### [facility] [address] [place] [address] PTon 11-25-2021 INR Coag (PPP) [Relative time] 0.98 {INR} Normal 0.9-1.1 [facility] Comment on above: Result Comment: Az mmended PT INR therapeutic range for long term care administrator and prophylactic therapy is 2.0 - 3.0. For heart valve and shunt patients the range is 2.5 - 3.5. Performed By: #### L 550.64708, L500.45400, L500.41395, L500.02003 #### [facility] [address] [place] [address] PTS 10.7 SECONDS Normal 9.5-12.0 [facility] Comment on above: Performed By: #### L 550.24532, L500.46486, L500.06961, L500.04448 #### [facility] [address] [place] [address] CNPNon 11-15-2021 JASONN Telephone (ERNESTODOVER) KAITLYN ESCOBAR I ([id number]) 1950 F Date Time Provider Department 11/15/21 KENTRELL DHALIWAL II During your visit today, we recorded the following information about you: Garima Drew MA 11/15/2021 9:33 AM Signed TRANSITIONAL CARE MANAGEMENT (TCM) COMMUNITY MONITORING PROGRAM - [place] Provider Action/FYI: Dr. Kentrell Dhaliwal II SUMMARY: Pt discharged from [facility] on 10/19/2021. Admitted for: Small Bowel Obstruction Contact made with patient: Yes Hi my name is Garima HEAD and I am calling from the [facility] on behalf of your PCP, Kentrell Dhaliwal II, MD I understand you were recently in the hospital so I am calling to check in with you to ensure you are feeling well now that you?re home. Do you mind if I ask you a few questions related to your hospital stay and well-being Yes Contact with patient post discharge, spoke to patient. Patient identified by name and . Do you feel your health is BETTER, WORSE, or the SAME since leaving the hospital? Better ACTION TAKEN: Patient indicated symptoms are better or same, no action required. Continue outreach. MEDICATIONS: Many patients have questions or concerns about their medications once they are home. Do you have any questions about taking your medications or which medication you should be on? No Do you need any medication refills at this time, including any of the medications you might take only when needed? No. Patient is calling Dr. Tolbert office regarding pain mediation. Patient states current medication is not helping to alleviate pain. Appointment with Dr. Moseley x 2 weeks. Patient declines appointment with our office at this time. ACTION TAKEN: No action required For RNs or Pharmacy completing outreach ONLY, was a medication review completed? N/A SOCIAL: We would like to make sure you have what you need so that your basics needs are met - including your personal safety, food, housing and medications. Would you like to speak with a social work logistics team leader to help give you support for any of these needs? No It can be normal to feel anxious or down during a time like this. Would you like to talk to a mental health professional about how you have been feeling? No ACTION TAKEN: No action taken DISCHARGE INTRUCTIONS: Your discharge instructions / After Visit Summary (AVS) are important in guiding you through the recovery process. Do you have any questions related to your discharge instructions? No Do you have all the necessary equipment and supplies at home? Yes ACTION TAKEN: No action required Thank you for talking with me today. I would like to help you schedule a hospital follow-up virtual or telephone visit with your PCP. This is a great way for you to connect with your provider to ensure you have safely transitioned home. If you are agreeable, I will send your request to a director search marketing strategies who will contact and assist you with that appointment. This will give you an opportunity to ask any questions or address any concerns you may have with your PCP. Inform the patient that if they have any questions or concerns prior to that appointment, to call their PCP's office right away. ACTION TAKEN: No action required, patient declines appointment. Your doctor would like us to remind you of the recommendations regarding the coronavirus (Covid19) outbreak: ? Avoid public places as much as possible. ? Avoid close contact (within 6 feet) with others you don't live with, especially if they are sick. ? Stay home if you are sick. ? Wash your hands regularly for at least 20 seconds with soap and water. ? Wear a cloth mask in public places to help reduce community spread. Do not go to your Doctor's office unless instructed to do so. For any non-emergency symptoms, call your Doctor's office to get instructions on how to manage (we might recommend a telephone or virtual visit). For emergency symptoms, proceed to Emergency Department as usual but inform them of cough and fever symptoms RIAZ if present (or call on the way if possible). Allergies As of Date: 11/15/2021 Noted Allergy Reaction DILAUDID (HYDROMORPHONE) 06/22/2020 12 - Shortness of Breath Comments: quit breathing LATEX 06/22/2020 10 - Anaphylaxis CODEINE 06/22/2020 6 - Diarrhea COMPAZINE (PROCHLORPERAZINE) 06/22/2020 17 - Myalgia LEVAQUIN (LEVOFLOXACIN) 06/22/2020 6 - Diarrhea OMNICEF (CEFDINIR) 06/22/2020 6 - Diarrhea PREDNISONE 08/30/2021 8 - GI Upset [id number] REDUCTASE INHIBIT*06/22/2020 6 - Diarrhea SULFA (SULFONAMIDE ANTIBIOTICS) 06/15/2020 14 - Other: See Comments Comments: Leg pain Date Reviewed: 08/30/2021 Reviewed by: Kentrell Dhaliwal II, MD - Fully Assessed Reason for Visit: [place] Closer - Other [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 Normal [facility] 09-22-2021 LYDIA Telephone (DONYA) KAITLYN ESCOBAR I ([id number]) 1950 F Date Time Provider Department 09/22/21 KENTRELL DHALIWAL II During your visit today, we recorded the following information about you: Denita Thomas MA 09/22/2021 10:39 AM Signed Patient called in stating that she is unable to sleep and is in need of the Ambien to go along with her xanax since that seems to be the only thing that will help. Patient states that she is not sleeping and is upset since her daughter has been missing for over a week. I mentioned that it was our understanding that she called in to update that her Ambien was not helping but she mentions it did just helped along with the xanax. Please advise Denita Thomas MA Allergies As of Date: 09/22/2021 Noted Allergy Reaction DILAUDID (HYDROMORPHONE) 06/22/2020 12 - Shortness of Breath Comments: quit breathing LATEX 06/22/2020 10 - Anaphylaxis CODEINE 06/22/2020 6 - Diarrhea COMPAZINE (PROCHLORPERAZINE) 06/22/2020 17 - Myalgia LEVAQUIN (LEVOFLOXACIN) 06/22/2020 6 - Diarrhea OMNICEF (CEFDINIR) 06/22/2020 6 - Diarrhea PREDNISONE 08/30/2021 8 - GI Upset [id number] REDUCTASE INHIBIT*06/22/2020 6 - Diarrhea SULFA (SULFONAMIDE ANTIBIOTICS) 06/15/2020 14 - Other: See Comments Comments: Leg pain Date Reviewed: 08/30/2021 Reviewed by: Kentrell Dhaliwal II, MD - Fully Assessed Reason for Visit: Medication Problem [65] Visit Diagnosis:Chronic insomnia [F51.04] Order(s):zolpidem (AMBIEN) 10 mgTake 1 tablet by mouth at bedtime as needed for up to 30 days. for insomnia.Disp: 30 tabletRfl: 0 Prescriptions as of 09/22/2021 - zolpidem (AMBIEN) 10 mg Take 1 tablet by mouth at bedtime as needed for up to 30 days. for insomnia. - ALPRAZolam (XANAX) 1 mg tablet Take 1 tablet by mouth twice daily for 30 days. - ondansetron (ZOFRAN) 8 mg tablet Take 1 tablet by mouth every 8 hours as needed for nausea/vomiting. - levothyroxine (SYNTHROID) 50 mcg tablet Take 1 tablet by mouth once daily. - buPROPion XL (WELLBUTRIN XL) 150 mg 24 hr tablet Take 2 tablets by mouth once daily. - mirtazapine (REMERON) 30 mg tablet TAKE 1 TABLET AT BEDTIME - ondansetron orally disintegrating (ZOFRAN ODT) 8 mg disintegrating tablet Take 1 tablet by mouth every 8 hours as needed for nausea/vomiting. - gabapentin (NEURONTIN) 300 mg capsule Take 300 mg by mouth three times daily. - escitalopram oxalate (LEXAPRO) 20 mg tablet Take 1 tablet by mouth once daily. - diphenoxylate-atropine (LOMOTIL) 2.5-0.025 mg per tablet Take 1 tablet by mouth four times daily as needed for Diarrhea for up to 5 days. - apixaban (ELIQUIS) 5 mg tab(s) Take 1 tablet by mouth twice daily. - esomeprazole (NEXIUM) 20 mg capsule Take 1 capsule by mouth DAILY (6 AM). - tiZANidine HCl 4 mg capsule Take 4 mg by mouth three times daily as needed. 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 for insomnia. Encounter Status:Closed by KENTRELL DHALIWAL II on 09/22/21 [facility] 09-14-2021 CNPN Telephone (ERNESTODOVER) KAITLYN ESCOBAR I ([id number]) 1950 F Date Time Provider Department 09/14/21 ISRA GOLDMAN, KENTRELL NAQVI During your visit today, we recorded the following information about you: Garima Drew MA 09/14/2021 9:52 AM Signed Patient called stating Ambien is not helping her to sleep. Patient would like Xanax called in for her again, she feels this works better for her. Also, she would like Zofran called in due to know having nausea because she is unable to sleep and is now not eating. Please advise LISA Rasmussen II, MD 09/14/2021 5:09 PM Signed Done Allergies As of Date: 09/14/2021 Noted Allergy Reaction DILAUDID (HYDROMORPHONE) 06/22/2020 12 - Shortness of Breath Comments: quit breathing LATEX 06/22/2020 10 - Anaphylaxis CODEINE 06/22/2020 6 - Diarrhea COMPAZINE (PROCHLORPERAZINE) 06/22/2020 17 - Myalgia LEVAQUIN (LEVOFLOXACIN) 06/22/2020 6 - Diarrhea OMNICEF (CEFDINIR) 06/22/2020 6 - Diarrhea PREDNISONE 08/30/2021 8 - GI Upset [id number] REDUCTASE INHIBIT*06/22/2020 6 - Diarrhea SULFA (SULFONAMIDE ANTIBIOTICS) 06/15/2020 14 - Other: See Comments Comments: Leg pain Date Reviewed: 08/30/2021 Reviewed by: Kentrell Dhaliwal II, MD - Fully Assessed Reason for Visit: Patient Update [1234] Visit Diagnosis:Anxiety and depression [F41.9, F32.A] Order(s):ALPRAZolam (XANAX) 1 mg tabletTake 1 tablet by mouth twice daily for 30 days.Disp: 60 tabletRfl: 0 ondansetron (ZOFRAN) 8 mg tabletTake 1 tablet by mouth every 8 hours as needed for nausea/vomiting.Disp: 30 tabletRfl: 1 Prescriptions as of 09/15/2021 - ALPRAZolam (XANAX) 1 mg tablet Take 1 tablet by mouth twice daily for 30 days. - ondansetron (ZOFRAN) 8 mg tablet Take 1 tablet by mouth every 8 hours as needed for nausea/vomiting. - levothyroxine (SYNTHROID) 50 mcg tablet Take 1 tablet by mouth once daily. - buPROPion XL (WELLBUTRIN XL) 150 mg 24 hr tablet Take 2 tablets by mouth once daily. - mirtazapine (REMERON) 30 mg tablet TAKE 1 TABLET AT BEDTIME - ondansetron orally disintegrating (ZOFRAN ODT) 8 mg disintegrating tablet Take 1 tablet by mouth every 8 hours as needed for nausea/vomiting. - gabapentin (NEURONTIN) 300 mg capsule Take 300 mg by mouth three times daily. - escitalopram oxalate (LEXAPRO) 20 mg tablet Take 1 tablet by mouth once daily. - diphenoxylate-atropine (LOMOTIL) 2.5-0.025 mg per tablet Take 1 tablet by mouth four times daily as needed for Diarrhea for up to 5 days. - apixaban (ELIQUIS) 5 mg tab(s) Take 1 tablet by mouth twice daily. - esomeprazole (NEXIUM) 20 mg capsule Take 1 capsule by mouth DAILY (6 AM). - tiZANidine HCl 4 mg capsule Take 4 mg by mouth three times daily as needed. 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 ONDANSETRON HCL 8 MG TABLET 30 t* 1 09/14/2021 Route: ORAL Sig: Take 1 tablet by mouth every 8 hours as needed for nausea/vomiting. Medications Discontinued During This Encounter Prescriptions - Zolpidem (AMBIEN CR) 12.5 mg CR tablet (Discontinued) Take 1 tablet by mouth at bedtime as needed for up to 10 days. - ALPRAZolam (XANAX) 1 mg tablet (Discontinued) TAKE 1 TABLET BY MOUTH TWICE DAILY Encounter Status:Closed by GARIMA DREW on 09/15/21 [facility] 09-06-2021 JASONN Telephone (AGDOVER) KAITLYN ESCOBAR I ([id number]) 1950 F Date Time Provider Department 09/06/21 KENTRELL DHALIWAL II During your visit today, we recorded the following information about you: Denita Thomas MA 09/06/2021 11:17 AM Signed Patient called in to give an update on her Ambien. Mentions it worked great the first two nights but she notices every night it works less and less. Patient is now waking up every 1-2 hours and unable to fall back asleep. Was wondering what else you suggest. Denita Dhaliwal II, MD 09/07/2021 2:52 PM Signed I would suggest to increase to 12.5 mg nightly and call in 1 week with an update I sent 10 days to DM-Yonis Thomas MA 09/07/2021 3:02 PM Signed Left a voicemail with Dr. Dhaliwal message. Denita Thomas MA Allergies As of Date: 09/06/2021 Noted Allergy Reaction DILAUDID (HYDROMORPHONE) 06/22/2020 12 - Shortness of Breath Comments: quit breathing LATEX 06/22/2020 10 - Anaphylaxis CODEINE 06/22/2020 6 - Diarrhea COMPAZINE (PROCHLORPERAZINE) 06/22/2020 17 - Myalgia LEVAQUIN (LEVOFLOXACIN) 06/22/2020 6 - Diarrhea OMNICEF (CEFDINIR) 06/22/2020 6 - Diarrhea PREDNISONE 08/30/2021 8 - GI Upset [id number] REDUCTASE INHIBIT*06/22/2020 6 - Diarrhea SULFA (SULFONAMIDE ANTIBIOTICS) 06/15/2020 14 - Other: See Comments Comments: Leg pain Date Reviewed: 08/30/2021 Reviewed by: Kentrell Dhaliwal II, MD - Fully Assessed Reason for Visit: Patient Update [1234] Primary Visit Diagnosis:Chronic insomnia [F51.04] Order(s):Zolpidem (AMBIEN CR) 12.5 mg CR tabletTake 1 tablet by mouth at bedtime as needed for up to 10 days.Disp: 10 tabletRfl: 0 Prescriptions as of 09/07/2021 - Zolpidem (AMBIEN CR) 12.5 mg CR tablet Take 1 tablet by mouth at bedtime as needed for up to 10 days. - levothyroxine (SYNTHROID) 50 mcg tablet Take 1 tablet by mouth once daily. - buPROPion XL (WELLBUTRIN XL) 150 mg 24 hr tablet Take 2 tablets by mouth once daily. - ALPRAZolam (XANAX) 1 mg tablet TAKE 1 TABLET BY MOUTH TWICE DAILY - mirtazapine (REMERON) 30 mg tablet TAKE 1 TABLET AT BEDTIME - ondansetron orally disintegrating (ZOFRAN ODT) 8 mg disintegrating tablet Take 1 tablet by mouth every 8 hours as needed for nausea/vomiting. - gabapentin (NEURONTIN) 300 mg capsule Take 300 mg by mouth three times daily. - escitalopram oxalate (LEXAPRO) 20 mg tablet Take 1 tablet by mouth once daily. - diphenoxylate-atropine (LOMOTIL) 2.5-0.025 mg per tablet Take 1 tablet by mouth four times daily as needed for Diarrhea for up to 5 days. - apixaban (ELIQUIS) 5 mg tab(s) Take 1 tablet by mouth twice daily. - esomeprazole (NEXIUM) 20 mg capsule Take 1 capsule by mouth DAILY (6 AM). - tiZANidine HCl 4 mg capsule Take 4 mg by mouth three times daily as needed. 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 Medications Discontinued During This Encounter Prescriptions - zolpidem (AMBIEN) 10 mg (Discontinued) Take 1 tablet by mouth at bedtime as needed for up to 10 days. for insomnia. Encounter Status:Closed by DENITA THOMAS MA on 09/07/21 [facility] 08-30-2021 CNOV Office Visit (MELISSA R) KAITLYN ESCOBAR I ([id number]) 1950 F Date Time Provider Department 08/30/21 1:00 PM KENTRELL DHALIWAL II During your visit today, we recorded the following information about you: Temperature Pulse Respiration Blood pressure 97.5 degrees 95/minute 16/minute 132/98 Weight Height 82.1 kg 1.549 m Denita Thomas MA 08/30/2021 1:16 PM Signed Patient states that since the day after Sunday she has had a cold and since then she has been fatigued and had shortness of breath. Patient mentions that she tested negative for Covid. Patient mentions that she had fallen down the stairs 4 weeks ago and did not go to the hospital. Patient states that she previously had 12 screws placed and is concerned with that. Mentions that she had also injured her back. Denita Dhaliwal II, MD 08/30/2021 10:33 PM Signed Kentrell Dhaliwal II, MD [address], [place] [address] SUBJECTIVE Kaitlyn Escobar is a 71 year old female who presents with F/U 3 Month, Fatigue, Shortness of Breath, and Depression. HPI The patient is in today to follow-up her problems including diabetes, anxiety, depression and other issues. She states she is having a lot of stress with dealing with her daughter and finances. She states that her anxiety and depression were helped somewhat initially with the medication but the dog a little bit worse. She is also having a lot of trouble sleeping, both in getting to sleep and then waking up. She did have blood work done and it did reveal that her thyroid was underactive with Synthroid dose being inadequate to keep her TSH normal Review of Systems Constitutional: Positive for fatigue. Negative for activity change, appetite change, chills, diaphoresis, fever and unexpected weight change. HENT: Negative for congestion, dental problem, drooling, ear discharge, ear pain, facial swelling, hearing loss, mouth sores, nosebleeds, postnasal drip, rhinorrhea, sinus pressure, sinus pain, sneezing, sore throat, tinnitus, trouble swallowing and voice change. Eyes: Negative for discharge, redness and visual disturbance. Respiratory: Negative for apnea, cough, choking, chest tightness, shortness of breath, wheezing and stridor. Cardiovascular: Negative for chest pain, palpitations and leg swelling. Gastrointestinal: Negative for abdominal distention, abdominal pain, blood in stool, constipation, diarrhea, nausea and vomiting. Endocrine: Negative for cold intolerance, heat intolerance, polydipsia, polyphagia and polyuria. Genitourinary: Negative for decreased urine volume, difficulty urinating, dysuria, enuresis, frequency, hematuria and urgency. Musculoskeletal: Negative for arthralgias, gait problem and myalgias. Skin: Negative for color change, pallor, rash and wound. Allergic/Immunologic: Negative for environmental allergies. Neurological: Negative for dizziness, tremors, syncope, facial asymmetry, speech difficulty, weakness, light-headedness, numbness and headaches. Hematological: Negative for adenopathy. Does not bruise/bleed easily. Psychiatric/Behavioral : Positive for dysphoric mood and sleep disturbance. Negative for agitation, behavioral problems, confusion, decreased concentration, hallucinations, self-injury and suicidal ideas. The patient is nervous/anxious. The patient is not hyperactive. PAST MEDICAL HISTORY Diagnosis Date - Anxiety and depression - Diabetes (HCC) - Drug-induced Parkinson's disease (HCC) - GERD (gastroesophageal reflux disease) - History of DVT (deep vein thrombosis) - IBS (irritable bowel syndrome) - Seizures (HCC) - Tremor PAST SURGICAL HISTORY Procedure Laterality Date - CHOLECYSTECTOMY HX - HYSTERECTOMY HX - ROTATOR CUFF REPAIR Left - TONSILLECTOMY HX - WRIST SURGERY HX Right Social History Tobacco Use - Smoking status: Never Smoker - Smokeless tobacco: Never Used Vaping Use - Vaping Use: Never used Substance Use Topics - Alcohol use: Not Currently - Drug use: Never FAMILY HISTORY Problem Relation Age of Onset - Emphysema Mother - Heart disease Father The ROS, medical, surgical, family, and social history were reviewed by Kentrell Dhaliwal II, MD ALLERGIES Allergen Reactions - Dilaudid [Hydromorp* Shortness of Breath quit breathing - Latex Anaphylaxis - Codeine Diarrhea - Compazine [Prochlor* Myalgia - Levaquin [Levofloxa* Diarrhea - Omnicef [Cefdinir] Diarrhea - Prednisone GI Upset - Hddrfbg-Wqu-Wtz Red* Diarrhea - Sulfa (Sulfonamide * Other: See Comments Leg pain Current Outpatient Medications Medication Sig - levothyroxine (SYNTHROID) 50 mcg tablet Take 1 tablet by mouth once daily. - buPROPion XL (WELLBUTRIN XL) 150 mg 24 hr tablet Take 2 tablets by mouth once daily. - ALPRAZolam (XANAX) 1 mg tablet TAKE 1 T (more content not included)... Normal [facility] CNPNon 08-25-2021 JASONN Telephone (DONYA) KAITLYN ESCOBAR ([id number]) 1950 F Date Time Provider Department 08/25/21 KENTRELL DHALIWAL II During your visit today, we recorded the following information about you: Garima Drew MA 08/25/2021 10:35 AM Signed .opened in error Garima Drew MA Allergies As of Date: 08/25/2021 Noted Allergy Reaction DILAUDID (HYDROMORPHONE) 06/22/2020 12 - Shortness of Breath Comments: quit breathing LATEX 06/22/2020 10 - Anaphylaxis CODEINE 06/22/2020 6 - Diarrhea COMPAZINE (PROCHLORPERAZINE) 06/22/2020 17 - Myalgia LEVAQUIN (LEVOFLOXACIN) 06/22/2020 6 - Diarrhea OMNICEF (CEFDINIR) 06/22/2020 6 - Diarrhea OMCLCVU-KIH-EYE REDUCTASE INHIBIT*06/22/2020 6 - Diarrhea SULFA (SULFONAMIDE ANTIBIOTICS) 06/15/2020 14 - Other: See Comments Comments: Leg pain Date Reviewed: 05/24/2021 Reviewed by: Kentrell Dhaliwal II, MD - Fully Assessed Reason for Visit: Orders [681] Prescriptions as of 08/25/2021 - ALPRAZolam (XANAX) 1 mg tablet TAKE 1 TABLET BY MOUTH TWICE DAILY - mirtazapine (REMERON) 30 mg tablet TAKE 1 TABLET AT BEDTIME - ondansetron (ZOFRAN) 8 mg tablet Take 1 tablet by mouth every 8 hours as needed for nausea/vomiting. - ondansetron orally disintegrating (ZOFRAN ODT) 8 mg disintegrating tablet Take 1 tablet by mouth every 8 hours as needed for nausea/vomiting. - gabapentin (NEURONTIN) 300 mg capsule Take 300 mg by mouth three times daily. - escitalopram oxalate (LEXAPRO) 20 mg tablet Take 1 tablet by mouth once daily. - levothyroxine (SYNTHROID) 25 mcg tablet Take 1 tablet by mouth once daily. - buPROPion XL (WELLBUTRIN XL) 150 mg 24 hr tablet Take 1 tablet by mouth once daily. - diphenoxylate-atropine (LOMOTIL) 2.5-0.025 mg per tablet Take 1 tablet by mouth three times daily as needed for up to 30 days. - dicyclomine (BENTYL) 20 mg tablet Take 1 tablet by mouth three times daily. - diphenoxylate-atropine (LOMOTIL) 2.5-0.025 mg per tablet Take 1 tablet by mouth four times daily as needed for Diarrhea for up to 5 days. - apixaban (ELIQUIS) 5 mg tab(s) Take 1 tablet by mouth twice daily. - esomeprazole (NEXIUM) 20 mg capsule Take 1 capsule by mouth DAILY (6 AM). - tiZANidine HCl 4 mg capsule Take 4 mg by mouth three times daily as needed. 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] Diabetes (HCC) [E11.9] Anxiety and depression [F41.9, F32.A] Encounter Status:Closed by GARIMA DREW on 08/25/21 [facility] OBSOLETEon 08-15-2021 OBSOLETE Refill (AGDOVER) KAITLYN ESCOBAR ([id number]) 1950 F Date Time Provider Department 08/15/21 KENTRELL DHALIWAL II During your visit today, we recorded the following information about you: Denita Thomas MA 08/15/2021 9:32 AM Signed Pharmacy faxed requesting the following refill Refill(s) Requested: Pending Prescriptions Disp Refills ALPRAZOLAM 1 MG TABLET 60 tablet 0 Sig: TAKE 1 TABLET BY MOUTH TWICE DAILY VIJI Class: C-IV GENNA: Yes ALLERGIES Allergen Reactions - Dilaudid [Hydromorp* Shortness of Breath quit breathing - Latex Anaphylaxis - Codeine Diarrhea - Compazine [Prochlor* Myalgia - Levaquin [Levofloxa* Diarrhea - Omnicef [Cefdinir] Diarrhea - Gbdkpcr-Tye-Qla Red* Diarrhea - Sulfa (Sulfonamide * Other: See Comments Leg pain (home) [phone] (cell) Last Office Visit Date: 05/24/2021 Last [facility] Visit: Visit date not found Future Appointment: 08/23/2021 The patients preferred pharmacy has been captured for this encounter? yes Request is for script(s) to be escript to pharmacy. Denita Thomas MA Allergies As of Date: 08/15/2021 Noted Allergy Reaction DILAUDID (HYDROMORPHONE) 06/22/2020 12 - Shortness of Breath Comments: quit breathing LATEX 06/22/2020 10 - Anaphylaxis CODEINE 06/22/2020 6 - Diarrhea COMPAZINE (PROCHLORPERAZINE) 06/22/2020 17 - Myalgia LEVAQUIN (LEVOFLOXACIN) 06/22/2020 6 - Diarrhea OMNICEF (CEFDINIR) 06/22/2020 6 - Diarrhea JRUKMSQ-AFF-HUV REDUCTASE INHIBIT*06/22/2020 6 - Diarrhea SULFA (SULFONAMIDE ANTIBIOTICS) 06/15/2020 14 - Other: See Comments Comments: Leg pain Date Reviewed: 05/24/2021 Reviewed by: Kentrell Dhaliwal II, MD - Fully Assessed Reason for Visit: Refill Request [94] Visit Diagnosis:Anxiety and depression [F41.9, F32.A] Order(s):ALPRAZolam (XANAX) 1 mg tabletTAKE 1 TABLET BY MOUTH TWICE DAILYDisp: 60 tabletRfl: 0 Prescriptions as of 08/16/2021 - ALPRAZolam (XANAX) 1 mg tablet TAKE 1 TABLET BY MOUTH TWICE DAILY - mirtazapine (REMERON) 30 mg tablet TAKE 1 TABLET AT BEDTIME - ondansetron (ZOFRAN) 8 mg tablet Take 1 tablet by mouth every 8 hours as needed for nausea/vomiting. - ondansetron orally disintegrating (ZOFRAN ODT) 8 mg disintegrating tablet Take 1 tablet by mouth every 8 hours as needed for nausea/vomiting. - gabapentin (NEURONTIN) 300 mg capsule Take 300 mg by mouth three times daily. - escitalopram oxalate (LEXAPRO) 20 mg tablet Take 1 tablet by mouth once daily. - levothyroxine (SYNTHROID) 25 mcg tablet Take 1 tablet by mouth once daily. - buPROPion XL (WELLBUTRIN XL) 150 mg 24 hr tablet Take 1 tablet by mouth once daily. - diphenoxylate-atropine (LOMOTIL) 2.5-0.025 mg per tablet Take 1 tablet by mouth three times daily as needed for up to 30 days. - dicyclomine (BENTYL) 20 mg tablet Take 1 tablet by mouth three times daily. - diphenoxylate-atropine (LOMOTIL) 2.5-0.025 mg per tablet Take 1 tablet by mouth four times daily as needed for Diarrhea for up to 5 days. - apixaban (ELIQUIS) 5 mg tab(s) Take 1 tablet by mouth twice daily. - esomeprazole (NEXIUM) 20 mg capsule Take 1 capsule by mouth DAILY (6 AM). - tiZANidine HCl 4 mg capsule Take 4 mg by mouth three times daily as needed. 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] Diabetes (HCC) [E11.9] Anxiety and depression [F41.9, F32.A] Prescriptions ordered this encounter Disp Refills Start End ALPRAZOLAM 1 MG TABLET 60 t* 0 08/16/2021 09/15/2021 Sig: TAKE 1 TABLET BY MOUTH TWICE DAILY Medications Discontinued During This Encounter Prescriptions - ALPRAZolam (XANAX) 1 mg tablet (Discontinued) TAKE 1 TABLET BY MOUTH TWICE DAILY Encounter Status:Closed by KENTRELL DHALIWAL II on 08/16/21 [facility] OBSOLETEon 07-14-2021 OBSOLETE Refill (AG[place]OVER) KAITLYN ESCOBAR ([id number]) 1950 F Date Time Provider Department 07/14/21 KENTRELL DHALIWAL II During your visit today, we recorded the following information about you: Denita Thomas MA 07/14/2021 9:32 AM Signed Pharmacy faxed requesting the following refill Refill(s) Requested: Pending Prescriptions Disp Refills ALPRAZOLAM 1 MG TABLET 60 tablet 0 Sig: TAKE 1 TABLET BY MOUTH TWICE DAILY VIJI Class: C-IV GENNA: Yes ALLERGIES Allergen Reactions - Dilaudid [Hydromorp* Shortness of Breath quit breathing - Latex Anaphylaxis - Codeine Diarrhea - Compazine [Prochlor* Myalgia - Levaquin [Levofloxa* Diarrhea - Omnicef [Cefdinir] Diarrhea - Yotmqce-Tji-Aqb Red* Diarrhea - Sulfa (Sulfonamide * Other: See Comments Leg pain (home) [phone] (cell) Last Office Visit Date: 05/24/2021 Last [facility] Health Visit: Visit date not found Future Appointment: 08/23/2021 The patients preferred pharmacy has been captured for this encounter? yes Request is for script(s) to be escript to pharmacy. Denita Thomas MA Allergies As of Date: 07/14/2021 Noted Allergy Reaction DILAUDID (HYDROMORPHONE) 06/22/2020 12 - Shortness of Breath Comments: quit breathing LATEX 06/22/2020 10 - Anaphylaxis CODEINE 06/22/2020 6 - Diarrhea COMPAZINE (PROCHLORPERAZINE) 06/22/2020 17 - Myalgia LEVAQUIN (LEVOFLOXACIN) 06/22/2020 6 - Diarrhea OMNICEF (CEFDINIR) 06/22/2020 6 - Diarrhea WTGQBGO-BBB-QDL REDUCTASE INHIBIT*06/22/2020 6 - Diarrhea SULFA (SULFONAMIDE ANTIBIOTICS) 06/15/2020 14 - Other: See Comments Comments: Leg pain Date Reviewed: 05/24/2021 Reviewed by: Kentrell Dhaliwal II, MD - Fully Assessed Reason for Visit: Refill Request [94] Visit Diagnosis:Anxiety and depression [F41.9, F32.A] Order(s):ALPRAZolam (XANAX) 1 mg tabletTAKE 1 TABLET BY MOUTH TWICE DAILYDisp: 60 tabletRfl: 0 Prescriptions as of 07/14/2021 - ALPRAZolam (XANAX) 1 mg tablet TAKE 1 TABLET BY MOUTH TWICE DAILY - mirtazapine (REMERON) 30 mg tablet TAKE 1 TABLET AT BEDTIME - ondansetron (ZOFRAN) 8 mg tablet Take 1 tablet by mouth every 8 hours as needed for nausea/vomiting. - ondansetron orally disintegrating (ZOFRAN ODT) 8 mg disintegrating tablet Take 1 tablet by mouth every 8 hours as needed for nausea/vomiting. - gabapentin (NEURONTIN) 300 mg capsule Take 300 mg by mouth three times daily. - escitalopram oxalate (LEXAPRO) 20 mg tablet Take 1 tablet by mouth once daily. - levothyroxine (SYNTHROID) 25 mcg tablet Take 1 tablet by mouth once daily. - buPROPion XL (WELLBUTRIN XL) 150 mg 24 hr tablet Take 1 tablet by mouth once daily. - diphenoxylate-atropine (LOMOTIL) 2.5-0.025 mg per tablet Take 1 tablet by mouth three times daily as needed for up to 30 days. - dicyclomine (BENTYL) 20 mg tablet Take 1 tablet by mouth three times daily. - diphenoxylate-atropine (LOMOTIL) 2.5-0.025 mg per tablet Take 1 tablet by mouth four times daily as needed for Diarrhea for up to 5 days. - apixaban (ELIQUIS) 5 mg tab(s) Take 1 tablet by mouth twice daily. - esomeprazole (NEXIUM) 20 mg capsule Take 1 capsule by mouth DAILY (6 AM). - tiZANidine HCl 4 mg capsule Take 4 mg by mouth three times daily as needed. 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] Diabetes (HCC) [E11.9] Anxiety and depression [F41.9, F32.A] Prescriptions ordered this encounter Disp Refills Start End ALPRAZOLAM 1 MG TABLET 60 t* 0 07/14/2021 08/13/2021 Sig: TAKE 1 TABLET BY MOUTH TWICE DAILY Medications Discontinued During This Encounter Prescriptions - ALPRAZolam (XANAX) 1 mg tablet (Discontinued) TAKE 1 TABLET BY MOUTH TWICE DAILY Encounter Status:Closed by KENTRELL DHALIWAL II on 07/14/21 [facility] OBSOLETEon 07-04-2021 OBSOLETE Refill ([place]) KAITLYN ESCOBAR ([id number]) 1950 F Date Time Provider Department 07/04/21 KENTRELL DHALIWAL II During your visit today, we recorded the following information about you: Denita Thomas MA 07/04/2021 4:40 PM Signed Pharmacy faxed requesting the following refill Refill(s) Requested: Pending Prescriptions Disp Refills MIRTAZAPINE 30 MG TABLET 90 tablet 1 Sig: TAKE 1 TABLET AT BEDTIME GENNA: Yes ALLERGIES Allergen Reactions - Dilaudid [Hydromorp* Shortness of Breath quit breathing - Latex Anaphylaxis - Codeine Diarrhea - Compazine [Prochlor* Myalgia - Levaquin [Levofloxa* Diarrhea - Omnicef [Cefdinir] Diarrhea - Xwrggau-Olv-Vzl Red* Diarrhea - Sulfa (Sulfonamide * Other: See Comments Leg pain (home) [phone] (cell) Last Office Visit Date: 05/24/2021 Last [facility] Health Visit: Visit date not found Future Appointment: 08/23/2021 The patients preferred pharmacy has been captured for this encounter? yes Request is for script(s) to be escript to pharmacy. Denita Thomas MA Allergies As of Date: 07/04/2021 Noted Allergy Reaction DILAUDID (HYDROMORPHONE) 06/22/2020 12 - Shortness of Breath Comments: quit breathing LATEX 06/22/2020 10 - Anaphylaxis CODEINE 06/22/2020 6 - Diarrhea COMPAZINE (PROCHLORPERAZINE) 06/22/2020 17 - Myalgia LEVAQUIN (LEVOFLOXACIN) 06/22/2020 6 - Diarrhea OMNICEF (CEFDINIR) 06/22/2020 6 - Diarrhea QJNRFBA-QJD-HTD REDUCTASE INHIBIT*06/22/2020 6 - Diarrhea SULFA (SULFONAMIDE ANTIBIOTICS) 06/15/2020 14 - Other: See Comments Comments: Leg pain Date Reviewed: 05/24/2021 Reviewed by: Kentrell hDaliwal II, MD - Fully Assessed Reason for Visit: Refill Request [94] Order(s):mirtazapine (REMERON) 30 mg tabletTAKE 1 TABLET AT BEDTIMEDisp: 90 tabletRfl: 1 Prescriptions as of 07/04/2021 - mirtazapine (REMERON) 30 mg tablet TAKE 1 TABLET AT BEDTIME - ondansetron (ZOFRAN) 8 mg tablet Take 1 tablet by mouth every 8 hours as needed for nausea/vomiting. - ALPRAZolam (XANAX) 1 mg tablet TAKE 1 TABLET BY MOUTH TWICE DAILY - ondansetron orally disintegrating (ZOFRAN ODT) 8 mg disintegrating tablet Take 1 tablet by mouth every 8 hours as needed for nausea/vomiting. - gabapentin (NEURONTIN) 300 mg capsule Take 300 mg by mouth three times daily. - escitalopram oxalate (LEXAPRO) 20 mg tablet Take 1 tablet by mouth once daily. - levothyroxine (SYNTHROID) 25 mcg tablet Take 1 tablet by mouth once daily. - buPROPion XL (WELLBUTRIN XL) 150 mg 24 hr tablet Take 1 tablet by mouth once daily. - diphenoxylate-atropine (LOMOTIL) 2.5-0.025 mg per tablet Take 1 tablet by mouth three times daily as needed for up to 30 days. - dicyclomine (BENTYL) 20 mg tablet Take 1 tablet by mouth three times daily. - diphenoxylate-atropine (LOMOTIL) 2.5-0.025 mg per tablet Take 1 tablet by mouth four times daily as needed for Diarrhea for up to 5 days. - apixaban (ELIQUIS) 5 mg tab(s) Take 1 tablet by mouth twice daily. - esomeprazole (NEXIUM) 20 mg capsule Take 1 capsule by mouth DAILY (6 AM). - tiZANidine HCl 4 mg capsule Take 4 mg by mouth three times daily as needed. 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 Encounter Status:Closed by KENTRELL DHALIWAL II on 07/04/21 [facility] bA 06-27-2021 [facility] Telephone (DONYA) KAITLYN ESCOBAR ([id number]) 1950 F Date Time Provider Department 06/27/21 KENTRELL DHALIWAL II During your visit today, we recorded the following information about you: Garima Drew MA 06/27/2021 9:56 AM Signed Patient called stating she finish Prednisone x 3 weeks ago. Patient is now complaining of OSCAR, fatigue, diarrhea and nausea. She has been in contact with neighbor who is COVID positive but she doesn't feel she has it because her symptoms are not the same as neighbors or her brother in law who has it. Please advise LISA Rasmussen II, MD 06/27/2021 1:54 PM Signed Zofran for nausea Immodium OTC for diarrhea Denita Thomas LISA 06/27/2021 2:02 PM Signed Patient has been informed via voicemail. Denita Thomas LISA Allergies As of Date: 06/27/2021 Noted Allergy Reaction DILAUDID (HYDROMORPHONE) 06/22/2020 12 - Shortness of Breath Comments: quit breathing LATEX 06/22/2020 10 - Anaphylaxis CODEINE 06/22/2020 6 - Diarrhea COMPAZINE (PROCHLORPERAZINE) 06/22/2020 17 - Myalgia LEVAQUIN (LEVOFLOXACIN) 06/22/2020 6 - Diarrhea OMNICEF (CEFDINIR) 06/22/2020 6 - Diarrhea TELZDRD-ZWU-RVO REDUCTASE INHIBIT*06/22/2020 6 - Diarrhea SULFA (SULFONAMIDE ANTIBIOTICS) 06/15/2020 14 - Other: See Comments Comments: Leg pain Date Reviewed: 05/24/2021 Reviewed by: Kentrell Dhaliwal II, MD - Fully Assessed Reason for Visit: Patient Question [5427] Order(s):ondansetron (ZOFRAN) 8 mg tabletTake 1 tablet by mouth every 8 hours as needed for nausea/vomiting.Disp: 10 tabletRfl: 0 Prescriptions as of 06/27/2021 - ondansetron (ZOFRAN) 8 mg tablet Take 1 tablet by mouth every 8 hours as needed for nausea/vomiting. - ALPRAZolam (XANAX) 1 mg tablet TAKE 1 TABLET BY MOUTH TWICE DAILY - ondansetron orally disintegrating (ZOFRAN ODT) 8 mg disintegrating tablet Take 1 tablet by mouth every 8 hours as needed for nausea/vomiting. - gabapentin (NEURONTIN) 300 mg capsule Take 300 mg by mouth three times daily. - escitalopram oxalate (LEXAPRO) 20 mg tablet Take 1 tablet by mouth once daily. - levothyroxine (SYNTHROID) 25 mcg tablet Take 1 tablet by mouth once daily. - mirtazapine (REMERON) 30 mg tablet Take 1 tablet by mouth daily at bedtime. - buPROPion XL (WELLBUTRIN XL) 150 mg 24 hr tablet Take 1 tablet by mouth once daily. - diphenoxylate-atropine (LOMOTIL) 2.5-0.025 mg per tablet Take 1 tablet by mouth three times daily as needed for up to 30 days. - dicyclomine (BENTYL) 20 mg tablet Take 1 tablet by mouth three times daily. - diphenoxylate-atropine (LOMOTIL) 2.5-0.025 mg per tablet Take 1 tablet by mouth four times daily as needed for Diarrhea for up to 5 days. - apixaban (ELIQUIS) 5 mg tab(s) Take 1 tablet by mouth twice daily. - esomeprazole (NEXIUM) 20 mg capsule Take 1 capsule by mouth DAILY (6 AM). - tiZANidine HCl 4 mg capsule Take 4 mg by mouth three times daily as needed. 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 Encounter Status:Closed by DENITA THOMAS MA on 06/27/21 [facility] OBSOLETEon 06-15-2021 OBSOLETE Refill ([place]) SHAWNKAITLYN CHEATHAM ([id number]) 1950 F Date Time Provider Department 06/15/21 KENTRELL DHALIWAL II During your visit today, we recorded the following information about you: Denita Thomas MA 06/15/2021 11:44 AM Signed Pharmacy faxed requesting the following refill Refill(s) Requested: Pending Prescriptions Disp Refills ALPRAZOLAM 1 MG TABLET 60 tablet 0 Sig: TAKE 1 TABLET BY MOUTH TWICE DAILY VIJI Class: C-IV GENNA: Yes ALLERGIES Allergen Reactions - Dilaudid [Hydromorp* Shortness of Breath quit breathing - Latex Anaphylaxis - Codeine Diarrhea - Compazine [Prochlor* Myalgia - Levaquin [Levofloxa* Diarrhea - Omnicef [Cefdinir] Diarrhea - Epvlded-Edc-Gii Red* Diarrhea - Sulfa (Sulfonamide * Other: See Comments Leg pain (home) [phone] (cell) Last Office Visit Date: 05/24/2021 Last [facility] Health Visit: Visit date not found Future Appointment: 08/23/2021 The patients preferred pharmacy has been captured for this encounter? yes Request is for script(s) to be escript to pharmacy. Denita Thomas MA Allergies As of Date: 06/15/2021 Noted Allergy Reaction DILAUDID (HYDROMORPHONE) 06/22/2020 12 - Shortness of Breath Comments: quit breathing LATEX 06/22/2020 10 - Anaphylaxis CODEINE 06/22/2020 6 - Diarrhea COMPAZINE (PROCHLORPERAZINE) 06/22/2020 17 - Myalgia LEVAQUIN (LEVOFLOXACIN) 06/22/2020 6 - Diarrhea OMNICEF (CEFDINIR) 06/22/2020 6 - Diarrhea CPBGEPC-IUB-TUW REDUCTASE INHIBIT*06/22/2020 6 - Diarrhea SULFA (SULFONAMIDE ANTIBIOTICS) 06/15/2020 14 - Other: See Comments Comments: Leg pain Date Reviewed: 05/24/2021 Reviewed by: Kentrell Dhaliwal II, MD - Fully Assessed Reason for Visit: Refill Request [94] Visit Diagnosis:Anxiety and depression [F41.9, F32.9] Order(s):ALPRAZolam (XANAX) 1 mg tabletTAKE 1 TABLET BY MOUTH TWICE DAILYDisp: 60 tabletRfl: 0 Prescriptions as of 06/16/2021 - ALPRAZolam (XANAX) 1 mg tablet TAKE 1 TABLET BY MOUTH TWICE DAILY - ondansetron orally disintegrating (ZOFRAN ODT) 8 mg disintegrating tablet Take 1 tablet by mouth every 8 hours as needed for nausea/vomiting. - gabapentin (NEURONTIN) 300 mg capsule Take 300 mg by mouth three times daily. - escitalopram oxalate (LEXAPRO) 20 mg tablet Take 1 tablet by mouth once daily. - levothyroxine (SYNTHROID) 25 mcg tablet Take 1 tablet by mouth once daily. - mirtazapine (REMERON) 30 mg tablet Take 1 tablet by mouth daily at bedtime. - buPROPion XL (WELLBUTRIN XL) 150 mg 24 hr tablet Take 1 tablet by mouth once daily. - diphenoxylate-atropine (LOMOTIL) 2.5-0.025 mg per tablet Take 1 tablet by mouth three times daily as needed for up to 30 days. - dicyclomine (BENTYL) 20 mg tablet Take 1 tablet by mouth three times daily. - diphenoxylate-atropine (LOMOTIL) 2.5-0.025 mg per tablet Take 1 tablet by mouth four times daily as needed for Diarrhea for up to 5 days. - apixaban (ELIQUIS) 5 mg tab(s) Take 1 tablet by mouth twice daily. - esomeprazole (NEXIUM) 20 mg capsule Take 1 capsule by mouth DAILY (6 AM). - tiZANidine HCl 4 mg capsule Take 4 mg by mouth three times daily as needed. 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] Diabetes (HCC) [E11.9] Anxiety and depression [F41.9, F32.9] Prescriptions ordered this encounter Disp Refills Start End ALPRAZOLAM 1 MG TABLET 60 t* 0 06/16/2021 07/16/2021 Sig: TAKE 1 TABLET BY MOUTH TWICE DAILY Medications Discontinued During This Encounter Prescriptions - ALPRAZolam (XANAX) 1 mg tablet (Discontinued) TAKE 1 TABLET BY MOUTH TWICE DAILY Encounter Status:Closed by KENTRELL DHALIWAL II on 06/16/21 [facility] Ab 05-30-2021 LYDIA Telephone (DONYA) KAITLYN ESCOBAR ([id number]) 1950 F Date Time Provider Department 05/30/21 KENTRELL DHALIWAL II During your visit today, we recorded the following information about you: Garima Drew MA 05/30/2021 1:10 PM Signed Patient called stating after taking Prednisone x 2 days she has been nauseated since. She states she also feels depressed. Patient would like to know if this is a side effect of the Prednisone? Patient is also requesting Zofran to help with nausea. Please advise LISA Rasmussen II, MD 05/30/2021 1:17 PM Signed Both are normal with prednisone Take with food and use Zofran as needed Garima Drew MA 05/30/2021 2:45 PM Signed Called to inform patient of Dr. Dhaliwal message. Patient states understanding and will call our office with any further questions or concerns. Garima Drew MA Allergies As of Date: 05/30/2021 Noted Allergy Reaction DILAUDID (HYDROMORPHONE) 06/22/2020 12 - Shortness of Breath Comments: quit breathing LATEX 06/22/2020 10 - Anaphylaxis CODEINE 06/22/2020 6 - Diarrhea COMPAZINE (PROCHLORPERAZINE) 06/22/2020 17 - Myalgia LEVAQUIN (LEVOFLOXACIN) 06/22/2020 6 - Diarrhea OMNICEF (CEFDINIR) 06/22/2020 6 - Diarrhea XCOUJWR-WYR-VIM REDUCTASE INHIBIT*06/22/2020 6 - Diarrhea SULFA (SULFONAMIDE ANTIBIOTICS) 06/15/2020 14 - Other: See Comments Comments: Leg pain Date Reviewed: 05/24/2021 Reviewed by: Kentrell Dhaliwal II, MD - Fully Assessed Reason for Visit: Patient Question [2233] Order(s):ondansetron orally disintegrating (ZOFRAN ODT) 8 mg disintegrating tabletTake 1 tablet by mouth every 8 hours as needed for nausea/vomiting.Disp: 30 tabletRfl: 0 Prescriptions as of 05/30/2021 - ondansetron orally disintegrating (ZOFRAN ODT) 8 mg disintegrating tablet Take 1 tablet by mouth every 8 hours as needed for nausea/vomiting. - gabapentin (NEURONTIN) 300 mg capsule Take 300 mg by mouth three times daily. - escitalopram oxalate (LEXAPRO) 20 mg tablet Take 1 tablet by mouth once daily. - levothyroxine (SYNTHROID) 25 mcg tablet Take 1 tablet by mouth once daily. - predniSONE (DELTASONE) 20 mg tablet Take 3 tablets by mouth once daily for 3 days, THEN 2 tablets once daily for 3 days, THEN 1 tablet once daily for 3 days. - ALPRAZolam (XANAX) 1 mg tablet TAKE 1 TABLET BY MOUTH TWICE DAILY - mirtazapine (REMERON) 30 mg tablet Take 1 tablet by mouth daily at bedtime. - buPROPion XL (WELLBUTRIN XL) 150 mg 24 hr tablet Take 1 tablet by mouth once daily. - diphenoxylate-atropine (LOMOTIL) 2.5-0.025 mg per tablet Take 1 tablet by mouth three times daily as needed for up to 30 days. - dicyclomine (BENTYL) 20 mg tablet Take 1 tablet by mouth three times daily. - diphenoxylate-atropine (LOMOTIL) 2.5-0.025 mg per tablet Take 1 tablet by mouth four times daily as needed for Diarrhea for up to 5 days. - apixaban (ELIQUIS) 5 mg tab(s) Take 1 tablet by mouth twice daily. - esomeprazole (NEXIUM) 20 mg capsule Take 1 capsule by mouth DAILY (6 AM). - tiZANidine HCl 4 mg capsule Take 4 mg by mouth three times daily as needed. 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 Encounter Status:Closed by GARIMA DREW on 05/30/21 [facility] 05-24-2021 CRISTOBAL Office Visit (MELISSA Devries) KAITLYN ESCOBAR I ([id number]) 1950 F Date Time Provider Department 05/24/21 1:20 PM KENTRELL DHALIWAL II During your visit today, we recorded the following information about you: Temperature Pulse Respiration Blood pressure 97.3 degrees 74/minute 16/minute 118/84 Weight Height 85.3 kg 1.549 m Denita Thomas MA 05/24/2021 1:26 PM Signed Patient states that she had fallen and landed on her right arm which has a plate a screws already placed. Mentions she has been having more pain than when it happened and did not go to the ER and have it checked. Patient says it was swelling as well. Denita Dhaliwal II, MD 05/24/2021 1:24 PM Signed Please consider having the following Health Maintenance testing completed: DILATED RETINAL EXAM DTAP,TDAP,TD(1 - Tdap) MAMMOGRAM COLORECTAL CANCER SCREENING SHINGRIX VACCINE(1 of 2) PNEUMOVAX AGE 65 AND OVER INFLUENZA(1) If your testing is not done at a [facility] facility please provide this office with the results of your testing. Kentrell Dhaliwal II, MD 05/24/2021 8:15 PM Signed Kentrell Dhaliwal II, MD [address], [place] [address] SUBJECTIVE Kaitlyn Escobar is a 70 year old female who presents with F/U 3 Month and Fall. HPI Patient is in today to follow-up her diabetes, high blood pressure and other chronic problems. She states she is doing fairly well she did have a fall recently where she slipped when she was gardening and landed on her right hand. She states it happened a couple weeks ago and that is the hand where she has hardware from a previous fracture. She states is hurting but gotten a little better and she does not want to do any work-up for it at this time. The fall was a situational slipped not loss of consciousness or anything that is happening with any regularity. Review of Systems Constitutional: Negative for activity change, appetite change, chills, diaphoresis, fatigue, fever and unexpected weight change. HENT: Negative for congestion, dental problem, ear pain, hearing loss, nosebleeds, postnasal drip, rhinorrhea, sinus pressure, sinus pain, sore throat, trouble swallowing and voice change. Eyes: Negative for discharge, redness and visual disturbance. Respiratory: Negative for apnea, cough, choking, chest tightness, shortness of breath, wheezing and stridor. Cardiovascular: Negative for chest pain, palpitations and leg swelling. Gastrointestinal: Negative for abdominal distention, abdominal pain, blood in stool, constipation, diarrhea, nausea and vomiting. Endocrine: Negative for cold intolerance, heat intolerance, polydipsia, polyphagia and polyuria. Genitourinary: Negative for decreased urine volume, difficulty urinating, dysuria, enuresis, frequency, hematuria and urgency. Musculoskeletal: Negative for arthralgias, gait problem and myalgias. Skin: Negative for color change, pallor, rash and wound. Allergic/Immunologic: Negative for environmental allergies. Neurological: Negative for dizziness, tremors, syncope, facial asymmetry, speech difficulty, weakness, light-headedness, numbness and headaches. Hematological: Negative for adenopathy. Does not bruise/bleed easily. Psychiatric/Behavioral : Negative for agitation, behavioral problems, confusion, decreased concentration, dysphoric mood, hallucinations, self-injury, sleep disturbance and suicidal ideas. The patient is not nervous/anxious and is not hyperactive. PAST MEDICAL HISTORY Diagnosis Date - Anxiety and depression - Diabetes (HCC) - Drug-induced Parkinson's disease (HCC) - GERD (gastroesophageal reflux disease) - History of DVT (deep vein thrombosis) - IBS (irritable bowel syndrome) - Seizures (HCC) - Tremor PAST SURGICAL HISTORY Procedure Laterality Date - CHOLECYSTECTOMY HX - HYSTERECTOMY HX - ROTATOR CUFF REPAIR Left - TONSILLECTOMY HX - WRIST SURGERY HX Right Social History Tobacco Use - Smoking status: Never Smoker - Smokeless tobacco: Never Used Vaping Use - Vaping Use: Never used Substance Use Topics - Alcohol use: Not Currently - Drug use: Never FAMILY HISTORY Problem Relation Age of Onset - Emphysema Mother - Heart disease Father The ROS, medical, surgical, family, and social history were reviewed by Kentrell Dhaliwal II, MD ALLERGIES Allergen Reactions - Dilaudid [Hydromorp* Shortness of Breath quit breathing - Latex Anaphylaxis - Codeine Diarrhea - Compazine [Prochlor* Myalgia - Levaquin [Levofloxa* Diarrhea - Omnicef [Cefdinir] Diarrhea - Xqjkgap-Tsc-Qtq Red* Diarrhea - Sulfa (Sulfonamide * Other: See Comments Leg pain Current Outpatient Medications Medication Sig - gabapentin (NEURONTIN) 300 mg capsule Take 300 mg by mouth three times daily. - escitalopram oxalate (LEXAPRO) 20 mg tablet Take (more content not included)... Normal [facility] OBSOLETEon 05-15-2021 OBSOLETE Refill ([place]) KAITLYN ESCOBAR I ([id number]) 1950 F Date Time Provider Department 05/15/21 KENTRELL DHALIWAL II During your visit today, we recorded the following information about you: Garima Drew MA 05/16/2021 8:44 AM Signed Opened in error Garima Drew MA 05/16/2021 11:10 AM Signed Pharmacy faxed requesting the following refill Refill(s) Requested: Pending Prescriptions Disp Refills ALPRAZOLAM 1 MG TABLET 60 tablet 0 Sig: TAKE 1 TABLET BY MOUTH TWICE DAILY VIJI Class: C-IV GENNA: Yes ALLERGIES Allergen Reactions - Dilaudid [Hydromorp* Shortness of Breath quit breathing - Latex Anaphylaxis - Codeine Diarrhea - Compazine [Prochlor* Myalgia - Levaquin [Levofloxa* Diarrhea - Omnicef [Cefdinir] Diarrhea - Sevghcu-Xsi-Bqq Red* Diarrhea - Sulfa (Sulfonamide * Other: See Comments Leg pain (home) [phone] (cell) Last Office Visit Date: 02/16/2021 Last [facility] Health Visit: Visit date not found Future Appointment: 05/24/2021 The patients preferred pharmacy has been captured for this encounter? yes Request is for script(s) to be escript to pharmacy. Garima Drew MA Allergies As of Date: 05/15/2021 Noted Allergy Reaction DILAUDID (HYDROMORPHONE) 06/22/2020 12 - Shortness of Breath Comments: quit breathing LATEX 06/22/2020 10 - Anaphylaxis CODEINE 06/22/2020 6 - Diarrhea COMPAZINE (PROCHLORPERAZINE) 06/22/2020 17 - Myalgia LEVAQUIN (LEVOFLOXACIN) 06/22/2020 6 - Diarrhea OMNICEF (CEFDINIR) 06/22/2020 6 - Diarrhea ABZGGOW-XFE-TYZ REDUCTASE INHIBIT*06/22/2020 6 - Diarrhea SULFA (SULFONAMIDE ANTIBIOTICS) 06/15/2020 14 - Other: See Comments Comments: Leg pain Date Reviewed: 02/16/2021 Reviewed by: Kentrell Dhaliwal II, MD - Fully Assessed Reason for Visit: Refill Request [94] Visit Diagnosis:Anxiety and depression [F41.9, F32.9] Order(s):ALPRAZolam (XANAX) 1 mg tabletTAKE 1 TABLET BY MOUTH TWICE DAILYDisp: 60 tabletRfl: 0 Prescriptions as of 05/16/2021 - ALPRAZolam (XANAX) 1 mg tablet TAKE 1 TABLET BY MOUTH TWICE DAILY - escitalopram oxalate (LEXAPRO) 20 mg tablet Take 1 tablet by mouth once daily. - mirtazapine (REMERON) 30 mg tablet Take 1 tablet by mouth daily at bedtime. - buPROPion XL (WELLBUTRIN XL) 150 mg 24 hr tablet Take 1 tablet by mouth once daily. - diphenoxylate-atropine (LOMOTIL) 2.5-0.025 mg per tablet Take 1 tablet by mouth three times daily as needed for up to 30 days. - dicyclomine (BENTYL) 20 mg tablet Take 1 tablet by mouth three times daily. - diphenoxylate-atropine (LOMOTIL) 2.5-0.025 mg per tablet Take 1 tablet by mouth four times daily as needed for Diarrhea for up to 5 days. - levothyroxine (SYNTHROID) 25 mcg tablet Take 1 tablet by mouth once daily. - apixaban (ELIQUIS) 5 mg tab(s) Take 1 tablet by mouth twice daily. - esomeprazole (NEXIUM) 20 mg capsule Take 1 capsule by mouth DAILY (6 AM). - tiZANidine HCl 4 mg capsule Take 4 mg by mouth three times daily as needed. 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] Diabetes (HCC) [E11.9] Anxiety and depression [F41.9, F32.9] Prescriptions ordered this encounter Disp Refills Start End ALPRAZOLAM 1 MG TABLET 60 t* 0 05/16/2021 06/15/2021 Sig: TAKE 1 TABLET BY MOUTH TWICE DAILY Medications Discontinued During This Encounter Prescriptions - ALPRAZolam (XANAX) 1 mg tablet (Discontinued) TAKE 1 TABLET BY MOUTH TWICE DAILY Encounter Status:Closed by KENTRELL DHALIWAL II on 05/16/21 [facility] OBSOLETEon 04-18-2021 OBSOLETE Refill ([place]) KAITLYN ESCOBAR I ([id number]) 1950 F Date Time Provider Department 04/18/21 KENTRELL DHALIWAL II During your visit today, we recorded the following information about you: Garima Drew MA 04/18/2021 10:40 AM Signed refill Pharmacy faxed requesting the following refill Refill(s) Requested: Pending Prescriptions Disp Refills ALPRAZOLAM 1 MG TABLET 60 tablet 0 Sig: TAKE 1 TABLET BY MOUTH TWICE DAILY VIJI Class: C-IV GENNA: Yes ALLERGIES Allergen Reactions - Dilaudid [Hydromorp* Shortness of Breath quit breathing - Latex Anaphylaxis - Codeine Diarrhea - Compazine [Prochlor* Myalgia - Levaquin [Levofloxa* Diarrhea - Omnicef [Cefdinir] Diarrhea - Iosxton-Dno-Xib Red* Diarrhea - Sulfa (Sulfonamide * Other: See Comments Leg pain (home) [phone] (cell) Last Office Visit Date: 02/16/2021 Last [facility] Visit: Visit date not found Future Appointment: 05/19/2021 The patients preferred pharmacy has been captured for this encounter? yes Request is for script(s) to be escript to pharmacy. LISA Rasmussen MA 04/18/2021 10:48 AM Signed Pharmacy faxed requesting the following refill Refill(s) Requested: Pending Prescriptions Disp Refills ALPRAZOLAM 1 MG TABLET 60 tablet 0 Sig: TAKE 1 TABLET BY MOUTH TWICE DAILY VIJI Class: C-IV GENNA: Yes ALLERGIES Allergen Reactions - Dilaudid [Hydromorp* Shortness of Breath quit breathing - Latex Anaphylaxis - Codeine Diarrhea - Compazine [Prochlor* Myalgia - Levaquin [Levofloxa* Diarrhea - Omnicef [Cefdinir] Diarrhea - Uavmnyu-Bex-Abx Red* Diarrhea - Sulfa (Sulfonamide * Other: See Comments Leg pain (home) [phone] (cell) Last Office Visit Date: 02/16/2021 Last [facility] Visit: Visit date not found Future Appointment: 05/19/2021 The patients preferred pharmacy has been captured for this encounter? yes Request is for script(s) to be escript to pharmacy. Garima Drew MA Allergies As of Date: 04/18/2021 Noted Allergy Reaction DILAUDID (HYDROMORPHONE) 06/22/2020 12 - Shortness of Breath Comments: quit breathing LATEX 06/22/2020 10 - Anaphylaxis CODEINE 06/22/2020 6 - Diarrhea COMPAZINE (PROCHLORPERAZINE) 06/22/2020 17 - Myalgia LEVAQUIN (LEVOFLOXACIN) 06/22/2020 6 - Diarrhea OMNICEF (CEFDINIR) 06/22/2020 6 - Diarrhea JLJSLVC-MQZ-WSW REDUCTASE INHIBIT*06/22/2020 6 - Diarrhea SULFA (SULFONAMIDE ANTIBIOTICS) 06/15/2020 14 - Other: See Comments Comments: Leg pain Date Reviewed: 02/16/2021 Reviewed by: Kentrell Dhaliwal II, MD - Fully Assessed Reason for Visit: Refill Request [94] Visit Diagnosis:Anxiety and depression [F41.9, F32.9] Order(s):ALPRAZolam (XANAX) 1 mg tabletTAKE 1 TABLET BY MOUTH TWICE DAILYDisp: 60 tabletRfl: 0 Prescriptions as of 04/18/2021 - ALPRAZolam (XANAX) 1 mg tablet TAKE 1 TABLET BY MOUTH TWICE DAILY - escitalopram oxalate (LEXAPRO) 20 mg tablet Take 1 tablet by mouth once daily. - mirtazapine (REMERON) 30 mg tablet Take 1 tablet by mouth daily at bedtime. - buPROPion XL (WELLBUTRIN XL) 150 mg 24 hr tablet Take 1 tablet by mouth once daily. - diphenoxylate-atropine (LOMOTIL) 2.5-0.025 mg per tablet Take 1 tablet by mouth three times daily as needed for up to 30 days. - dicyclomine (BENTYL) 20 mg tablet Take 1 tablet by mouth three times daily. - diphenoxylate-atropine (LOMOTIL) 2.5-0.025 mg per tablet Take 1 tablet by mouth four times daily as needed for Diarrhea for up to 5 days. - levothyroxine (SYNTHROID) 25 mcg tablet Take 1 tablet by mouth once daily. - apixaban (ELIQUIS) 5 mg tab(s) Take 1 tablet by mouth twice daily. - esomeprazole (NEXIUM) 20 mg capsule Take 1 capsule by mouth DAILY (6 AM). - tiZANidine HCl 4 mg capsule Take 4 mg by mouth three times daily as needed. 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 Normal [facility] OBSOLETEon 03-16-2021 OBSOLETE Refill ([place]) KAITLYN ESCOBAR I ([id number]) 1950 F Date Time Provider Department 03/16/21 KENTRELL DHALIWAL II During your visit today, we recorded the following information about you: Garima Drew MA 03/16/2021 11:48 AM Signed Pharmacy faxed requesting the following refill Refill(s) Requested: Pending Prescriptions Disp Refills ALPRAZOLAM 1 MG TABLET 60 tablet 0 Sig: TAKE 1 TABLET BY MOUTH TWICE DAILY VIJI Class: C-IV GENNA: Yes ALLERGIES Allergen Reactions - Dilaudid [Hydromorp* Shortness of Breath quit breathing - Latex Anaphylaxis - Codeine Diarrhea - Compazine [Prochlor* Myalgia - Levaquin [Levofloxa* Diarrhea - Omnicef [Cefdinir] Diarrhea - Qimebfr-Txd-Huq Red* Diarrhea - Sulfa (Sulfonamide * Other: See Comments Leg pain (home) [phone] (cell) Last Office Visit Date: 02/16/2021 Last [facility] Health Visit: Visit date not found Future Appointment: 05/19/2021 The patients preferred pharmacy has been captured for this encounter? yes Request is for script(s) to be escript to pharmacy. Garima Drew MA refill Allergies As of Date: 03/16/2021 Noted Allergy Reaction DILAUDID (HYDROMORPHONE) 06/22/2020 12 - Shortness of Breath Comments: quit breathing LATEX 06/22/2020 10 - Anaphylaxis CODEINE 06/22/2020 6 - Diarrhea COMPAZINE (PROCHLORPERAZINE) 06/22/2020 17 - Myalgia LEVAQUIN (LEVOFLOXACIN) 06/22/2020 6 - Diarrhea OMNICEF (CEFDINIR) 06/22/2020 6 - Diarrhea YUJQISO-TTW-XMU REDUCTASE INHIBIT*06/22/2020 6 - Diarrhea SULFA (SULFONAMIDE ANTIBIOTICS) 06/15/2020 14 - Other: See Comments Comments: Leg pain Date Reviewed: 02/16/2021 Reviewed by: Kentrell Dhaliwal II, MD - Fully Assessed Reason for Visit: Refill Request [94] Visit Diagnosis:Anxiety and depression [F41.9, F32.9] Order(s):ALPRAZolam (XANAX) 1 mg tabletTAKE 1 TABLET BY MOUTH TWICE DAILYDisp: 60 tabletRfl: 0 Prescriptions as of 03/16/2021 Sig: ALPRAZOLAM 1 MG TABLET TAKE 1 TABLET BY MOUTH TWICE * ESCITALOPRAM 20 MG TABLET Take 1 tablet by mouth once d* MIRTAZAPINE 30 MG TABLET Take 1 tablet by mouth daily * BUPROPION XL 150 MG TAB Take 1 tablet by mouth once d* DIPHENOXYLATE-ATROPINE 2.5 MG* Take 1 tablet by mouth three * DICYCLOMINE 20 MG TABLET Take 1 tablet by mouth three * DIPHENOXYLATE-ATROPINE 2.5 MG* Take 1 tablet by mouth four t* LEVOTHYROXINE 25 MCG TABLET Take 1 tablet by mouth once d* APIXABAN 5 MG TABLET Take 1 tablet by mouth twice * ESOMEPRAZOLE MAGNESIUM 20 MG * Take 1 capsule by mouth DAILY* TIZANIDINE 4 MG CAPSULE Take 4 mg by mouth three time* Problem List As Of Date 03/16/2021 Noted Resolved Parkinson's disease (HCC) [G20] 06/22/2020 Irritable bowel syndrome with both constipation* 0 Subclinical hypothyroidism [E03.9] 06/22/2020 History of DVT (deep vein thrombosis) [Z86.718] 06/22/2020 Prediabetes [R73.03] 06/22/2020 GERD without esophagitis [K21.9] 06/22/2020 Mild episode of recurrent major depressive diso*06/22/2020 MOODY (generalized anxiety disorder) [F41.1] 06/22/2020 Chronic insomnia [F51.04] 06/22/2020 GERD (gastroesophageal reflux disease) [K21.9] 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 Encounter Status:Closed by KENTRELL DHALIWAL II on 03/17/21 Normal [facility] SURGICAL PATHOLOGY, CONVERTE Don 03-03-2005 [facility] Vital Signs Date Time Vital Sign Value Performing Clinician Facility 03-05-2025 [id number] Body height 154.9 cm Kentrell Dhaliwal II, MD Work Phone: [facility] 03-05-2025 13:11-0400 Body mass index (BMI) [Ratio] 27.21 kg/m2 Kentrell Dhaliwal II, MD Work Phone: [facility] 03-05-2025 13:11-040 Body temperature 97.5 [degF] Kentrell Dhaliwal II, MD Work Phone: [facility] 03-05-2025 13:11-040 Body weight 65.32 kg Kentrell Dhaliwal II, MD Work Phone: [facility] 03-05-2025 13:11-0400 Diastolic blood pressure 70 mm[Hg] Kentrell Dhaliwal II, MD Work Phone: [facility] 03-05-2025 13:11-0400 Heart rate 72 /min Kentrell Dhaliwal II, MD Work Phone: [facility] 03-05-2025 13:11-0400 Respiratory rate 14 /min Kentrell Dhaliwal II, MD Work Phone: [facility] 03-05-2025 13:11-0400 SaO2% (BldA) [Mass fraction] 94 % Kentrell Dhaliwal II, MD Work Phone: [facility] 03-05-2025 13:11-0400 Systolic blood pressure 122 mm[Hg] Kentrell Dhaliwal II, MD Work Phone: [facility] 09-26-2024 14:07-0500 Body height 154.9 cm Kentrell Dhaliwal II, MD Work Phone: [facility] 09-26-2024 14:07-0500 Body mass index (BMI) [Ratio] 26.38 kg/m2 Kentrell Dhaliwal II, MD Work Phone: [facility] 09-26-2024 14:07-0500 Body temperature 98.71 [degF] Kentrell Dhaliwal II, MD Work Phone: [facility] 09-26-2024 14:07-0500 Body weight 63.32 kg Kentrell Dhaliwal II, MD Work Phone: [facility] 09-26-2024 14:07-0500 Diastolic blood pressure 82 mm[Hg] Kentrell Dhaliwal II, MD Work Phone: [facility] 09-26-2024 14:07-0500 Heart rate 81 /min Kentrell Dhaliwal II, MD Work Phone: [facility] 09-26-2024 14:07-0500 Respiratory rate 24 /min Kentrell Dhaliwal II, MD Work Phone: [facility] 09-26-2024 14:07-0500 SaO2% (BldA) [Mass fraction] 100 % Kentrell Dhaliwal II, MD Work Phone: [facility] 09-26-2024 14:07-0500 Systolic blood pressure 126 mm[Hg] Kentrell Dhaliwal II, MD Work Phone: [facility] 09-03-2024 16:10-0500 Diastolic blood pressure 80 mm[Hg] Kentrell Dhaliwal II, MD Work Phone: [facility] 09-03-2024 16:10-0500 Systolic blood pressure 150 mm[Hg] Kentrell Dhaliwal II, MD Work Phone: [facility] 09-03-2024 16:01-0500 Body height 154.9 cm Kentrell Dhaliwal II, MD Work Phone: [facility] 09-03-2024 16:01-0500 Body mass index (BMI) [Ratio] 29.1 kg/m2 Kentrell Dhaliwal II, MD Work Phone: [facility] 09-03-2024 16:01-0500 Body weight 69.85 kg Kentrell Dhaliwal II, MD Work Phone: [facility] 09-03-2024 16:01-0500 Heart rate 83 /min Kentrell Dhaliwal II, MD Work Phone: [facility] 09-03-2024 16:01-0500 SaO2% (BldA) [Mass fraction] 97 % Kentrell Dhaliwal II, MD Work Phone: [facility] 07-04-2024 14:59-0400 Body height 154.9 cm Kentrell Dhaliwal II, MD Work Phone: [facility] 07-04-2024 14:59-0400 Body mass index (BMI) [Ratio] 25.17 kg/m2 Kentrell Dhaliwal II, MD Work Phone: [facility] 07-04-2024 14:59-0400 Body temperature 97.3 [degF] Kentrell Dhaliwal II, MD Work Phone: [facility] 07-04-2024 14:59-0400 Body weight 60.42 kg Kentrell Dhaliwal II, MD Work Phone: [facility] 07-04-2024 14:59-0400 Diastolic blood pressure 72 mm[Hg] Kentrell Dhaliwal II, MD Work Phone: [facility] 07-04-2024 14:59-0400 Heart rate 66 /min Kentrell Dhaliwal II, MD Work Phone: [facility] 07-04-2024 14:59-0400 Respiratory rate 16 /min Kentrell Dhaliwal II, MD Work Phone: [facility] 07-04-2024 14:59-0400 SaO2% (BldA) [Mass fraction] 99 % Kentrell Dhaliwal II, MD Work Phone: [facility] 07-04-2024 14:59-0400 Systolic blood pressure 138 mm[Hg] Kentrell Dhaliwal II, MD Work Phone: [facility] 06-11-2024 09:52-0400 Body height 154.9 cm Kentrell Dhaliwal II, MD Work Phone: [facility] 06-11-2024 09:52-0400 Body mass index (BMI) [Ratio] 24.07 kg/m2 Kentrell Dhaliwal II, MD Work Phone: [facility] 06-11-2024 09:52-0400 Body temperature 97.3 [degF] Kentrell Dhaliwal II, MD Work Phone: [facility] 06-11-2024 09:52-0400 Body weight 57.79 kg Kentrell Dhaliwal II, MD Work Phone: [facility] 06-11-2024 09:52-0400 Diastolic blood pressure 80 mm[Hg] Kentrell Dhaliwal II, MD Work Phone: [facility] 06-11-2024 09:52-0400 Heart rate 90 /min Kentrell Dhaliwal II, MD Work Phone: [facility] 06-11-2024 09:52-0400 SaO2% (BldA) [Mass fraction] 99 % Kentrell Dhaliwal II, MD Work Phone: [facility] 06-11-2024 09:52-0400 Systolic blood pressure 158 mm[Hg] Kentrell Dhaliwal II, MD Work Phone: [facility] 01-02-2024 15:09-0400 Body height 154.9 cm Kentrell Dhaliwal II, MD Work Phone: [facility] 01-02-2024 15:09-0400 Body mass index (BMI) [Ratio] 22.11 kg/m2 Kentrell Dhaliwal II, MD Work Phone: [facility] 01-02-2024 15:09-0400 Body temperature 98.2 [degF] Kentrell Dhaliwal II, MD Work Phone: [facility] 01-02-2024 15:09-0400 Body weight 53.07 kg Kentrell Dhaliwal II, MD Work Phone: [facility] 01-02-2024 15:09-0400 Diastolic blood pressure 64 mm[Hg] Kentrell Dhaliwal II, MD Work Phone: [facility] 01-02-2024 15:09-0400 Heart rate 77 /min Kentrell Dhaliwal II, MD Work Phone: [facility] 01-02-2024 15:09-0400 Respiratory rate 12 /min Kentrell Dhaliwal II, MD Work Phone: [facility] 01-02-2024 15:09-0400 SaO2% (BldA) [Mass fraction] 100 % Kentrell Dhaliwal II, MD Work Phone: [facility] 01-02-2024 15:09-0400 Systolic blood pressure 118 mm[Hg] Kentrell Dhaliwal II, MD Work Phone: [facility] 12-13-2023 13:34-0400 Body temperature 97.2 [degF] Dr. Kentrell Dhaliwal Work Phone: [facility] 12-13-2023 13:34-0400 Diastolic blood pressure 73 mm[Hg] Dr. Kentrell Dhaliwal Work Phone: [facility] 12-13-2023 13:34-0400 Heart rate 62 /min Dr. Kentrell Dhaliwal Work Phone: [facility] 12-13-2023 13:34-0400 Respiratory rate 14 /min Dr. Kentrell Dhaliwal Work Phone: [facility] 12-13-2023 13:34-0400 SaO2% (BldA) [Mass fraction] 100 % Dr. Kentrell Dhaliwal Work Phone: [facility] 12-13-2023 13:34-0400 Systolic blood pressure 129 mm[Hg] Dr. Kentrell Dhaliwal Work Phone: [facility] 12-13-2023 10:19-0400 Body height 154.[address] Kentrell Dhaliwal Work Phone: 6(109)922-400349 [place] [address] 12-13-2023 10:19-0400 Body mass index (BMI) [Ratio] 24 kg/m2 Dr. Kentrell Dhaliwal Work Phone: 1(881)177-565649 [place] [address] 12-13-2023 10:19-0400 Body weight 57.[address] Kentrell Dhaliwal Work Phone: 2(483)545-226549 [place] [address] 12-11-2023 11:32-0400 Body temperature 98.1 [degF] Dr. Kentrell Dhaliwal Work Phone: 0(397)409-109649 [place] [address] 12-11-2023 11:32-0400 Diastolic blood pressure 79 mm[Hg] Dr. Kentrell Dhaliwal Work Phone: 9(504)452-835549 [place] [address] 12-11-2023 11:32-0400 Heart rate 73 /min Dr. Kentrell Dhaliwal Work Phone: 2(894)000-286649 [place] [address] 12-11-2023 11:32-0400 Respiratory rate 16 /min Dr. Kentrell Dhaliwal Work Phone: [facility] 12-11-2023 11:32-0400 SaO2% (BldA) [Mass fraction] 98 % Dr. Kentrell Dhaliwal Work Phone: [facility] 12-11-2023 11:32-0400 Systolic blood pressure 130 mm[Hg] Dr. Kentrell Dhaliwal Work Phone: [facility] 12-11-2023 11:19-0400 Body height 154.[address] Kentrell Dhaliwal Work Phone: [facility] 12-11-2023 11:19-0400 Body weight 54.[address] Kentrell Dhaliwal Work Phone: [facility] 12-11-2023 02:23-0400 Body mass index (BMI) [Ratio] 22.6 kg/m2 Dr. Kentrell Dhaliwal Work Phone: [facility] 12-07-2023 00:40-0400 Body temperature 97.9 [degF] Dr. Kentrell Dhaliwal Work Phone: [facility] 12-07-2023 00:40-0400 Diastolic blood pressure 90 mm[Hg] Dr. Kentrell Dhaliwal Work Phone: [facility] 12-07-2023 00:40-0400 Heart rate 86 /min Dr. Kentrell Dhaliwal Work Phone: [facility] 12-07-2023 00:40-0400 Respiratory rate 26 /min Dr. Kentrell Dhaliwal Work Phone: [facility] 12-07-2023 00:40-0400 SaO2% (BldA) [Mass fraction] 100 % Dr. Kentrell Dhaliwal Work Phone: [facility] 12-07-2023 00:40-0400 Systolic blood pressure 149 mm[Hg] Dr. Kentrell Dhaliwal Work Phone: [facility] 12-06-2023 15:33-0400 Body height 154.[address] Kentrell Dhaliwal Work Phone: [facility] 12-06-2023 15:33-0400 Body mass index (BMI) [Ratio] 22.1 kg/m2 Dr. Kentrell Dhaliwal Work Phone: [facility] 12-06-2023 15:33-0400 Body weight 53.[address] Kentrell Dhaliwal Work Phone: [facility] 07-24-2023 14:06-0500 Body height 154.9 cm Kentrell Dhaliwal II, MD Work Phone: [facility] 07-24-2023 14:06-0500 Body temperature 97.5 [degF] Kentrell Dhaliwal II, MD Work Phone: [facility] 07-24-2023 14:06-0500 Body weight 54.43 kg Kentrell Dhaliwal II, MD Work Phone: [facility] 07-24-2023 14:06-0500 Diastolic blood pressure 76 mm[Hg] Kentrell Dhaliwal II, MD Work Phone: [facility] 07-24-2023 14:06-0500 Heart rate 80 /min Kentrell Dhaliwal II, MD Work Phone: [facility] 07-24-2023 14:06-0500 Respiratory rate 16 /min Kentrell Dhaliwal II, MD Work Phone: [facility] 07-24-2023 14:06-0500 SaO2% (BldA) [Mass fraction] 98 % Kentrell Dhaliwal II, MD Work Phone: [facility] 07-24-2023 14:06-0500 Systolic blood pressure 114 mm[Hg] Kentrell Dhaliwal II, MD Work Phone: [facility] 04-18-2023 14:38-0400 Body height 154.9 cm Kentrell Dhaliwal II, MD Work Phone: [facility] 04-18-2023 14:38-0400 Body temperature 97 [degF] Kentrell Dhaliwal II, MD Work Phone: [facility] 04-18-2023 14:38-0400 Body weight 54.16 kg Kentrell Dhaliwal II, MD Work Phone: [facility] 04-18-2023 14:38-0400 Diastolic blood pressure 88 mm[Hg] Kentrell Dhaliwal II, MD Work Phone: [facility] 04-18-2023 14:38-0400 Heart rate 57 /min Kentrell Dhaliwal II, MD Work Phone: [facility] 04-18-2023 14:38-0400 Respiratory rate 12 /min Kentrell Dhaliwal II, MD Work Phone: [facility] 04-18-2023 14:38-0400 SaO2% (BldA) [Mass fraction] 99 % Kentrell Dhaliwal II, MD Work Phone: [facility] 04-18-2023 14:38-0400 Systolic blood pressure 128 mm[Hg] Kentrell Dhaliwal II, MD Work Phone: [facility] 04-01-2023 13:44-0400 Diastolic blood pressure 96 mm[Hg] Dr. Jose Stanton Work Phone: [facility] 04-01-2023 13:44-0400 Heart rate 98 /min Dr. Jose Stanton Work Phone: [facility] 04-01-2023 13:44-0400 Respiratory rate 22 /min Dr. Jose Stanton Work Phone: [facility] 04-01-2023 13:44-0400 SaO2% (BldA) [Mass fraction] 99 % Dr. Jose Stanton Work Phone: [facility] 04-01-2023 13:44-0400 Systolic blood pressure 160 mm[Hg] Dr. Jose Stanton Work Phone: [facility] 03-31-2023 22:58-0400 Body mass index (BMI) [Ratio] 24.1 kg/m2 Dr. Jose Stanton Work Phone: [facility] 03-31-2023 22:58-0400 Body weight [address] Jsoe Stanton Work Phone: [facility] 03-31-2023 22:22-0400 Body height 154.[address] Jose Stanton Work Phone: [facility] 03-31-2023 22:22-0400 Body temperature 96.6 [degF] Dr. Jose Stanton Work Phone: [facility] 03-18-2023 15:15-0400 Body temperature 98 [degF] Dr. Jose Stanton Work Phone: [facility] 03-18-2023 15:15-0400 Diastolic blood pressure 88 mm[Hg] Dr. Jose Stanton Work Phone: [facility] 03-18-2023 15:15-0400 Heart rate 78 /min Dr. Jose Stanton Work Phone: [facility] 03-18-2023 15:15-0400 Respiratory rate 18 /min Dr. Jose Stanton Work Phone: [facility] 03-18-2023 15:15-0400 SaO2% (BldA) [Mass fraction] 100 % Dr. Jose Stanton Work Phone: [facility] 03-18-2023 15:15-0400 Systolic blood pressure 168 mm[Hg] Dr. Jose Stanton Work Phone: 8(955)[phone] [place] [address] 03-18-2023 06:00-0400 Body mass index (BMI) [Ratio] 22.5 kg/m2 Dr. Jose Stanton Work Phone: 4(632)[phone] [place] [address] 03-18-2023 06:00-0400 Body weight 54.[address] Jose Stanton Work Phone: 2(346)101-230352 [place] [address] 03-16-2023 15:07-0400 Body height 154.[address] Jose Stanton Work Phone: [facility] 03-16-2023 06:45-0400 Body temperature 97.6 [degF] Dr. Jose Stanton Work Phone: [facility] 03-16-2023 06:45-0400 Diastolic blood pressure 112 mm[Hg] Dr. Jose Stanton Work Phone: [facility] 03-16-2023 06:45-0400 Heart rate 85 /min Dr. Jose Stanton Work Phone: [facility] 03-16-2023 06:45-0400 Respiratory rate 18 /min Dr. Jose Stanton Work Phone: [facility] 03-16-2023 06:45-0400 SaO2% (BldA) [Mass fraction] 99 % Dr. Jose Stanton Work Phone: [facility] 03-16-2023 06:45-0400 Systolic blood pressure 153 mm[Hg] Dr. Jose Stanton Work Phone: [facility] 03-16-2023 03:35-0400 Body height 154.[address] Jose Stanton Work Phone: [facility] 03-16-2023 03:35-0400 Body mass index (BMI) [Ratio] 23.4 kg/m2 Dr. Jose Stanton Work Phone: [facility] 03-16-2023 03:35-0400 Body weight 56.[address] Jose Stanton Work Phone: [facility] 12-12-2022 00:08-0400 Diastolic blood pressure 67 mm[Hg] [facility] 12-12-2022 00:08-0400 Heart rate 81 /min [facility] 12-12-2022 00:08-0400 Respiratory rate 18 /min [facility] 12-12-2022 00:08-0400 SaO2% (BldA) [Mass fraction] 98 % [facility] 12-12-2022 00:08-0400 Systolic blood pressure 154 mm[Hg] [facility] 12-11-2022 22:35-0400 Body temperature 98 [degF] [facility] 12-11-2022 21:50-0400 Body mass index (BMI) [Ratio] 24.5 kg/m2 [facility] 12-11-2022 21:50-0400 Body weight 60.7 kg [facility] 12-11-2022 20:26-0400 Body height 157.48 cm [facility] 11-23-2022 10:53-0500 Body height 154.9 cm Kentrell Dhaliwal II, MD Work Phone: [facility] 11-23-2022 10:53-0500 Body temperature 97.59 [degF] Kentrell Dhaliwal II, MD Work Phone: [facility] 11-23-2022 10:53-0500 Body weight 61.69 kg Kentrell Dhaliwal II, MD Work Phone: [facility] 11-23-2022 10:53-0500 Diastolic blood pressure 88 mm[Hg] Kentrell Dhaliwal II, MD Work Phone: [facility] 11-23-2022 10:53-0500 Heart rate 75 /min Kentrell Dhaliwal II, MD Work Phone: [facility] 11-23-2022 10:53-0500 Respiratory rate 12 /min Kentrell Dhaliwal II, MD Work Phone: [facility] 11-23-2022 10:53-0500 SaO2% (BldA) [Mass fraction] 96 % Kentrell Dhaliwal II, MD Work Phone: [facility] 11-23-2022 10:53-0500 Systolic blood pressure 122 mm[Hg] Kentrell Dhaliwal II, MD Work Phone: [facility] 07-21-2022 14:06-0400 Body height 154.9 cm Travon Umbel DO Work Phone: [facility] 07-21-2022 14:06-0400 Body temperature 97.5 [degF] Travon Umbel DO Work Phone: [facility] 07-21-2022 14:06-0400 Body weight 65.77 kg Travon Umbel DO Work Phone: [facility] 07-21-2022 14:06-0400 Diastolic blood pressure 152 mm[Hg] Travon Umbel DO Work Phone: [facility] 07-21-2022 14:06-0400 Heart rate 84 /min Travon Umbel DO Work Phone: [facility] 07-21-2022 14:06-0400 SaO2% (BldA) [Mass fraction] 100 % Travon Umbel DO Work Phone: [facility] 07-21-2022 14:06-0400 Systolic blood pressure 188 mm[Hg] Travon Umbel DO Work Phone: [facility] 05-30-2022 10:24-0400 Body height 154.9 cm Kentrell Dhaliwal II, MD Work Phone: [facility] 05-30-2022 10:24-0400 Body temperature 97.2 [degF] Kentrell Dhaliwal II, MD Work Phone: [facility] 05-30-2022 10:24-0400 Body weight 68.22 kg Kentrell Dhaliwal II, MD Work Phone: [facility] 05-30-2022 10:24-0400 Diastolic blood pressure 78 mm[Hg] Kentrell Dhaliwal II, MD Work Phone: [facility] 05-30-2022 10:24-0400 Heart rate 80 /min Kentrell Dhaliwal II, MD Work Phone: [facility] 05-30-2022 10:24-0400 Respiratory rate 12 /min Kentrell Dhaliwal II, MD Work Phone: [facility] 05-30-2022 10:24-0400 SaO2% (BldA) [Mass fraction] 99 % Kentrell Dhaliwal II, MD Work Phone: [facility] 05-30-2022 10:24-0400 Systolic blood pressure 118 mm[Hg] Kentrell Dhaliwal II, MD Work Phone: [facility] 04-19-2022 13:08-0400 Body height 154.9 cm Kentrell Dhaliwal II, MD Work Phone: [facility] 04-19-2022 13:08-0400 Body temperature 96.49 [degF] Kentrell Dhaliwal II, MD Work Phone: [facility] 04-19-2022 13:08-0400 Body weight 69.58 kg Kentrell Dhaliwal II, MD Work Phone: [facility] 04-19-2022 13:08-0400 Diastolic blood pressure 82 mm[Hg] Kentrell Dhaliwal II, MD Work Phone: [facility] 04-19-2022 13:08-0400 Heart rate 88 /min Kentrell Dhaliwal II, MD Work Phone: [facility] 04-19-2022 13:08-0400 Respiratory rate 12 /min Kentrell Dhaliwal II, MD Work Phone: [facility] 04-19-2022 13:08-0400 SaO2% (BldA) [Mass fraction] 98 % Kentrell Dhaliwal II, MD Work Phone: [facility] 04-19-2022 13:08-0400 Systolic blood pressure 128 mm[Hg] Kentrell Dhaliwal II, MD Work Phone: [facility] 02-28-2022 14:25-0400 Body weight 74.07 kg Kentrell Dhaliwal II, MD Work Phone: [facility] 02-28-2022 14:25-0400 Diastolic blood pressure 78 mm[Hg] Kentrell Dhaliwal II, MD Work Phone: [facility] 02-28-2022 14:25-0400 Respiratory rate 14 /min Kentrell Dhaliwal II, MD Work Phone: [facility] 02-28-2022 14:25-0400 SaO2% (BldA) [Mass fraction] 98 % Kentrell Dhaliwal II, MD Work Phone: [facility] 02-28-2022 14:25-0400 Systolic blood pressure 110 mm[Hg] Kentrell Dhaliwal II, MD Work Phone: [facility] 01-17-2022 12:55-0400 Body height 154.9 cm Jaswant Moseley MD Work Phone: [facility] 01-17-2022 12:55-0400 Body weight 78.93 kg Jaswant Moseley MD Work Phone: [facility] 01-17-2022 12:55-0400 Diastolic blood pressure 70 mm[Hg] Jaswant Moseley MD Work Phone: [facility] 01-17-2022 12:55-0400 Heart rate 67 /min Jaswant Moseley MD Work Phone: [facility] 01-17-2022 12:55-0400 Systolic blood pressure 120 mm[Hg] Jaswant Moseley MD Work Phone: [facility] 12-27-2021 14:01-0400 Body height 154.9 cm Jaswant Moseley MD Work Phone: [facility] 12-27-2021 14:01-0400 Body weight 82.1 kg Jaswant Moseley MD Work Phone: [facility] 12-14-2021 11:00-0400 Body height 154.9 cm Rosanna Lilly DO Work Phone: [facility] 12-14-2021 11:00-0400 Body weight 82.1 kg Rosanna Lilly DO Work Phone: [facility] Encounters Encounter Date Encounter Type Care Provider Facility Start: 03-31-2025 End: 03-31-2025 Refill Kentrell Dhaliwal MD Work Phone: [facility] Comment on above: Refill Request Start: 03-30-2025 End: 03-30-2025 ambulatory KENTRELL DHALIWAL II Facility:[facility] Start: 03-13-2025 End: 03-13-2025 ambulatory Ann Marie Ferreira [facility] Start: 03-13-2025 End: 03-13-2025 Patient encounter procedure Ann Marie Ferreira [facility] Comment on above: Population Health Na vigation Outreach ([employer] [facility]/) Start: 03-05-2025 End: 03-05-2025 Patient encounter procedure Kentrell Dhaliwal MD Work Phone: [facility] Comment on above: Vertigo (Primary Dx) ; Anxiety and depression; CHAVARRIA (dyspnea on exertion); Palpitations; Gastroesophageal reflux disease, unspecified whether esophagitis present; Hypothyroidism, acquired; Iron deficiency anemia, unspecified iron deficiency anemia type; Drug-induced Parkinson's disease (HCC); Irritable bowel syndrome with both constipation and diarrhea Start: 03-05-2025 End: 03-05-2025 ambulatory KENTRELL DHALIWAL II Facility:[id number] Start: 03-03-2025 End: 03-03-2025 Refill Kentrell Dhaliwal MD Work Phone: [facility] Comment on above: Refill Request Start: 03-02-2025 End: 03-02-2025 ambulatory Kentrell Dhaliwal II, MD Work Phone: [facility] Start: 03-02-2025 End: 03-02-2025 Patient encounter procedure Kentrell Dhaliwal MD Work Phone: [facility] Comment on above: palpiptations Start: 03-02-2025 End: 03-02-2025 Telephone encounter Kentrell Dhaliwal MD Work Phone: [facility] Comment on above: Results Start: 02-26-2025 End: 02-27-2025 Follow-up encounter Kentrell Dhaliwal MD Work Phone: [facility] Start: 02-26-2025 End: 02-26-2025 Telephone encounter Kentrell Dhaliwal MD Work Phone: [facility] Comment on above: Patient Question Start: 02-26-2025 End: 02-26-2025 ambulatory KENTRELL DHALIWAL II Facility:[facility] Start: 02-18-2025 End: 02-18-2025 Refill Kentrell Dhaliwal MD Work Phone: [facility] Comment on above: Refill Request Start: 01-29-2025 End: 01-29-2025 Telephone encounter Kentrell Dhaliwal MD Work Phone: [facility] Comment on above: Medication Request Start: 01-08-2025 End: 01-08-2025 ambulatory KENTRELL DHALIWAL II Facility:[id number] Start: 01-01-2025 End: 01-02-2025 Refill Kentrell Dhaliwal MD Work Phone: [facility] Comment on above: Refill Request Start: 12-25-2024 End: 12-25-2024 Refill Kentrell Dhaliwal MD Work Phone: [facility] Comment on above: Refill Request Start: 12-09-2024 End: 12-09-2024 Refill Kentrell Dhaliwal MD Work Phone: [facility] Comment on above: Refill Request Start: 12-09-2024 End: 12-09-2024 Refill Kentrell Dhaliwal MD Work Phone: [facility] Comment on above: Refill Request Start: 12-08-2024 End: 12-10-2024 Telephone encounter Kentrell Dhaliwal MD Work Phone: [facility] Comment on above: Refill Request Start: 11-28-2024 End: 11-28-2024 Telephone encounter Kentrell Dhaliwal MD Work Phone: [facility] Comment on above: Appointment Start: 11-24-2024 End: 11-24-2024 Refill Kentrell Dhaliwal MD Work Phone: [facility] Comment on above: Refill Request Start: 11-10-2024 End: 11-10-2024 Refill Kentrell Dhaliwal MD Work Phone: [facility] Comment on above: Refill Request Start: 10-28-2024 End: 10-28-2024 Refill Kentrell Dhaliwal MD Work Phone: [facility] Comment on above: Refill Request Start: 10-17-2024 End: 10-17-2024 ambulatory Jessie Mccloud RN Work Phone: [facility] Internal [facility] Start: 10-17-2024 End: 10-17-2024 Patient encounter procedure Jessie Mccloud RN Work Phone: [facility] Comment on above: Transition Of Care S rebecca phone contact for Transitional Care Management Start: 10-15-2024 End: 10-15-2024 Refill Kentrell Dhaliwal MD Work Phone: [facility] Comment on above: Refill Request Start: 10-07-2024 End: 10-07-2024 Refill Kentrell Dhaliwal MD Work Phone: [facility] Comment on above: Refill Request Start: 09-27-2024 End: 09-29-2024 Refill Kentrell Dhaliwal MD Work Phone: [facility] Comment on above: Refill Request Start: 09-26-2024 End: 09-26-2024 Patient encounter procedure Kentrell Dhaliwal MD Work Phone: [facility] Comment on above: Generalized abdomina l pain (Primary Dx); Gastroesophageal reflux disease, unspecified whether esophagitis present; SOB (shortness of breath); Anxiety and depression; Elevated blood pressure reading without diagnosis of hypertension Start: 09-26-2024 End: 09-26-2024 ambulatory KENTRELL DHALIWAL II Facility:[id number] Start: 09-18-2024 End: 09-18-2024 Patient Outreach Jessie Mccloud RN Work Phone: [facility] Comment on above: Transition Of Care I nitial phone contact for Transitional Care Management Start: 09-14-2024 ambulatory Edmundo Duke ty:[facility] Start: 09-14-2024 End: 09-17-2024 Evaluation and management of inpatient Kentrell Dhaliwal Facility:[facility] Start: 09-11-2024 End: 09-12-2024 Telephone encounter Kentrell Dhaliwal MD Work Phone: [facility] Comment on above: Ear Pain Start: 09-09-2024 End: 09-12-2024 Refill Kentrell Dhaliwal MD Work Phone: [facility] Comment on above: Refill Request Start: 09-03-2024 End: 09-03-2024 Patient encounter procedure Kentrell Dhaliwal MD Work Phone: [facility] Comment on above: Gastroesophageal ref lux disease, unspecified whether esophagitis present (Primary Dx); Generalized abdominal pain; Anxiety and depression; Hypothyroidism, acquired; Elevated blood pressure reading without diagnosis of hypertension Start: 09-03-2024 End: 09-03-2024 ambulatory KENTRELL DHALIWAL SUSI Facility:[id number] Start: 08-28-2024 End: 08-29-2024 Telephone encounter Kentrell Dhaliwal MD Work Phone: [facility] Start: 08-19-2024 End: 08-19-2024 Telephone encounter Kentrell Dhaliwal MD Work Phone: [facility] Start: 08-12-2024 End: 08-13-2024 Telephone encounter Kentrell Dhaliwal MD Work Phone: [facility] Comment on above: Patient Question Start: 08-11-2024 End: 08-11-2024 Telephone encounter Kentrell Dhaliwal MD Work Phone: [facility] Comment on above: Patient Question Start: 08-01-2024 End: 08-01-2024 Emergency department patient visit Kentrell Asael Dhaliwal Facility:[facility] Start: 07-30-2024 End: 07-30-2024 Telephone encounter Kentrell Dhaliwal MD Work Phone: [facility] Start: 07-29-2024 End: 07-29-2024 Refill Kentrell Dhaliwal MD Work Phone: [facility] Comment on above: Refill Request Start: 07-04-2024 End: 07-04-2024 Patient encounter procedure Kentrell Dhaliwal MD Work Phone: [facility] Comment on above: Acute otitis media, left (Primary Dx); Acute otitis externa of left ear, unspecified type Start: 07-04-2024 End: 07-04-2024 ambulatory KENTRELL DHALIWAL Facility:[id number] Start: 07-04-2024 End: 07-04-2024 Refill Kentrell Dhaliwal MD Work Phone: [facility] Comment on above: Refill Request Start: 07-01-2024 End: 07-02-2024 Refill Kentrell Dhaliwal MD Work Phone: [facility] Comment on above: Refill Request Start: 06-30-2024 End: 06-30-2024 Refill Kentrell Dhaliwal MD Work Phone: [facility] Comment on above: Refill Request Start: 06-30-2024 End: 06-30-2024 Refill Kentrell Dhaliwal MD Work Phone: [facility] Comment on above: Refill Request Start: 06-25-2024 End: 07-01-2024 Telephone encounter Kentrell Dhaliwal MD Work Phone: [facility] Comment on above: Medication Question Start: 06-14-2024 End: 06-16-2024 Refill Kentrell Dhaliwal MD Work Phone: [facility] Comment on above: Refill Request Start: 06-13-2024 End: 06-13-2024 Telephone encounter Kentrell Dhaliwal MD Work Phone: [facility] Comment on above: Results Start: 06-11-2024 End: 06-11-2024 ambulatory KENTRELL DHALIWAL II Facility:[id number] Start: 06-11-2024 End: 06-11-2024 Patient encounter procedure Kentrell Dhaliwal MD Work Phone: [facility] Comment on above: Gastroesophageal ref lux disease, unspecified whether esophagitis present (Primary Dx); Anxiety and depression; Chronic insomnia; Hypothyroidism, acquired; Iron deficiency anemia, unspecified iron deficiency anemia type; Nausea; Vitamin D deficiency Start: 06-11-2024 End: 06-11-2024 ambulatory KENTRELL DHALIWAL II Facility:[id number] Start: 05-30-2024 End: 05-30-2024 Refill Kentrell Dhaliwal MD Work Phone: [facility] Comment on above: Refill Request Start: 05-28-2024 End: 05-29-2024 Refill Kentrell Dhaliwal MD Work Phone: [facility] Comment on above: Refill Request Start: 05-07-2024 End: 05-07-2024 Telephone encounter Kentrell Dhaliwal MD Work Phone: [facility] Comment on above: requesting call back Start: 05-01-2024 Refill Kentrell gould MD Work Phone: [facility] Comment on above: Refill Request Start: 04-14-2024 Refill Kentrell gould MD Work Phone: [facility] Comment on above: Refill Request Start: 04-05-2024 Refill Kentrell gould MD Work Phone: [facility] Comment on above: Refill Request Start: 04-01-2024 Refill Kentrell gould MD Work Phone: [facility] Comment on above: Refill Request Start: 03-17-2024 Refill Kentrell gould MD Work Phone: [facility] Comment on above: Refill Request Start: 03-03-2024 Refill Kentrell gould MD Work Phone: [facility] Comment on above: Refill Request Start: 02-01-2024 Refill Kentrell gould MD Work Phone: [facility] Comment on above: Refill Request Start: 01-15-2024 Refill Kentrell gould MD Work Phone: [facility] Comment on above: Refill Request Start: 01-02-2024 End: 01-02-2024 Patient encounter procedure Kentrell Dhaliwal MD Work Phone: [facility] Comment on above: Gastroesophageal ref lux disease, unspecified whether esophagitis present (Primary Dx); Nausea; Anxiety and depression; Diarrhea, unspecified type; Generalized weakness; Hypothyroidism, acquired; Iron deficiency anemia, unspecified iron deficiency anemia type Start: 12-17-2023 Telephone encounter Kentrell Dhaliwal MD Work Phone: [facility] Comment on above: patient requesting c all back ; Patient Question Start: 12-13-2023 End: 12-13-2023 Emergency department patient visit Dr. Kentrell Dhaliwal Work Phone: [facility]Emergency Department Work Phone: Start: 12-11-2023 Non-patient / Non-visit Dr. India Dhaliwal Work Phone: [facility] Work Phone: Start: 12-11-2023 Non-patient / Non-visit Dr. India Dhaliwal Work Phone: [facility] Start: 12-10-2023 Non-patient / Non-visit Dr. India Dhaliwal Work Phone: [facility] Start: 12-10-2023 Non-patient / Non-visit Dr. India Dhaliwal Work Phone: [facility] Work Phone: Start: 12-09-2023 Non-patient / Non-visit Dr. India Dhaliwal Work Phone: [facility] Work Phone: Start: 12-09-2023 Non-patient / Non-visit Dr. India Dhaliwal Work Phone: [facility] Start: 12-08-2023 Non-patient / Non-visit Dr. India Dhaliwal Work Phone: [facility] Work Phone: Start: 12-08-2023 Non-patient / Non-visit Dr. India Dhaliwal Work Phone: [facility] Start: 12-07-2023 Non-patient / Non-visit Dr. India Dhaliwal Work Phone: [facility] Start: 12-07-2023 Non-patient / Non-visit Dr. India Dhaliwal Work Phone: [facility] Work Phone: Start: 12-07-2023 ambulatory Kentrell Dhaliwal [place] Start: 12-07-2023 End: 12-11-2023 Evaluation and management of inpatient Dr. Kentrell [facility]haliwal [facility]: Start: 12-06-2023 Telephone encounter Kentrell Dhaliwal MD Work Phone: [facility] Comment on above: Patient Update; Joanie ent Question Start: 11-01-2023 Refill Kentrell gould MD Work Phone: [facility] Comment on above: Refill Request Start: 10-25-2023 Refill Kentrell gould MD Work Phone: [facility] Comment on above: Refill Request Start: 08-03-2023 Telephone encounter Kentrell Dhaliwal MD Work Phone: [facility] Comment on above: Patient Question; Re fill Request Start: 07-25-2023 Telephone encounter Kentrell Dhaliwal MD Work Phone: [facility] Comment on above: Results Start: 07-24-2023 End: 07-24-2023 Subsequent hospital visit by physician [address] [facility] Comment on above: Generalized weakness [R53.1] Start: 07-24-2023 End: 07-24-2023 Patient encounter procedure Kentrell Dhaliwal MD Work Phone: [facility] Comment on above: Generalized weakness (Primary Dx); SOB (shortness of breath); CHAVARRIA (dyspnea on exertion); Fatigue, unspecified type; Chronic insomnia; Anxiety and depression; Generalized abdominal pain Start: 07-04-2023 Telephone encounter Kentrell Dhaliwal MD Work Phone: [facility] Comment on above: Refill Request Start: 06-18-2023 Refill Kentrell gould MD Work Phone: [facility] Comment on above: Refill Request Start: 06-06-2023 Telephone encounter Kentrell Dhaliwal MD Work Phone: [facility] Comment on above: Refill Request Start: 06-01-2023 Telephone encounter Kentrell Dhaliwal MD Work Phone: [facility] Comment on above: Patient Question Start: 05-22-2023 Refill Kentrell gould MD Work Phone: [facility] Comment on above: Refill Request Start: 05-18-2023 Telephone encounter Kentrell Dhaliwal MD Work Phone: [facility] Comment on above: Refill Request Start: 05-04-2023 Refill Kentrell gould MD Work Phone: [facility] Comment on above: Refill Request Start: 04-23-2023 Telephone encounter Kentrell Dhaliwal MD Work Phone: [facility] Comment on above: Patient Update; Refi ll Request Start: 04-18-2023 End: 04-18-2023 Patient encounter procedure Kentrell Dhaliwal MD Work Phone: [facility] Comment on above: Small bowel obstruct ion (HCC) (Primary Dx); Recurrent UTI (urinary tract infection); Dermatitis; Gastroesophageal reflux disease, unspecified whether esophagitis present; Hypothyroidism, acquired; Anxiety and depression; Generalized weakness Start: 04-11-2023 Refill Kentrell gould MD Work Phone: [facility] Comment on above: Refill Request Start: 04-10-2023 Refill Kentrell gould MD Work Phone: [facility] Comment on above: Refill Request Start: 03-31-2023 End: 04-01-2023 Emergency department patient visit Dr. Jose Stanton Work Phone: [facility]Emergency Department Work Phone: Start: 03-22-2023 Patient Outreach Jessie Mccloud RN Work Phone: [facility] Comment on above: Transition Of Care Start: 03-18-2023 Non-patient / Non-visit Dr. Carly Stanton Work Phone: [facility] Work Phone: Start: 03-18-2023 Non-patient / Non-visit Dr. Carly Stanton Work Phone: [facility] Start: 03-17-2023 Non-patient / Non-visit Dr. Carly Stanton Work Phone: [facility] Work Phone: Start: 03-17-2023 Non-patient / Non-visit Dr. Carly Stanton Work Phone: [facility] Start: 03-16-2023 Non-patient / Non-visit Dr. Carly Stanton Work Phone: [facility] Start: 03-16-2023 Non-patient / Non-visit Dr. Carly Stanton Work Phone: [facility] Work Phone: Start: 03-16-2023 End: 03-18-2023 Evaluation and management of inpatient Dr. Jose Stanton [facility] Work Phone: Start: 01-29-2023 Refill Kentrell gould MD Work Phone: [facility] Comment on above: Refill Request Start: 01-17-2023 Refill Kentrell gould MD Work Phone: [facility] Comment on above: Refill Request Start: 01-09-2023 Refill Kentrell gould MD Work Phone: [facility] Comment on above: Refill Request Start: 12-12-2022 Telephone encounter Kentrell Dhaliwal MD Work Phone: [facility] Comment on above: Patient Update Start: 12-11-2022 End: 12-12-2022 Emergency department patient visit [facility] Start: 12-11-2022 Refill Kentrell gould MD Work Phone: [facility] Comment on above: Refill Request Start: 11-23-2022 Telephone encounter Kentrell Dhaliwal MD Work Phone: [facility] Comment on above: Results Start: 11-23-2022 ambulatory KENTRELL DHALIWAL II Facil ity:[facility] Start: 11-23-2022 End: 11-23-2022 Subsequent hospital visit by physician Provider [facility] Start: 11-23-2022 End: 11-23-2022 Patient encounter procedure Kentrell Dhaliwal MD Work Phone: [facility] Comment on above: Hypothyroidism, acqu ired (Primary Dx); Type 2 diabetes mellitus without complication, without long-term current use of insulin (HCC); Gastroesophageal reflux disease, unspecified whether esophagitis present; Anxiety and depression; Elevated liver function tests; Irritable bowel syndrome with both constipation and diarrhea Start: 11-13-2022 Refill Kentrell gould MD Work Phone: [facility] Comment on above: Refill Request Start: 10-31-2022 Refill Kentrell gould MD Work Phone: [facility] Comment on above: Refill Request Start: 10-16-2022 ambulatory LEO EMERSON Fa cility:[facility] Start: 10-16-2022 End: 10-16-2022 Subsequent hospital visit by physician Provider [facility] Comment on above: PAIN LLE Start: 10-14-2022 End: 10-15-2022 Emergency department patient visit LEO EMERSON Facility:[facility] Start: 10-14-2022 End: 10-14-2022 Subsequent hospital visit by physician Provider [facility] Comment on above: MULTIPLE COMPLAINTS Start: 09-05-2022 Telephone encounter Kentrell Dhaliwal MD Work Phone: [facility] Comment on above: Patient Question Start: 08-14-2022 Refill Kentrell gould MD Work Phone: [facility] Comment on above: Refill Request Start: 08-07-2022 Telephone encounter Kentrell Dhaliwal MD Work Phone: [facility] Comment on above: Patient Update Start: 08-03-2022 ambulatory Kentrell gould MD Work Phone: [facility] Start: 08-03-2022 E-mail encounter fro m caregiver Ketnrell Dhaliwal II, MD Work Phone: [facility] Start: 07-24-2022 Telephone encounter Travon gamboa DO Work Phone: Gastroenterology Comment on above: Patient Update Start: 07-21-2022 End: 07-21-2022 Subsequent hospital visit by physician Xr [facility] So Work Phone: Radiology Comment on above: LLQ abdominal pain [ R10.32] Start: 07-21-2022 End: 07-21-2022 Patient encounter procedure Travon Edgard DO Work Phone: Gastroenterology Comment on above: LLQ abdominal pain ( Primary Dx); Nausea and vomiting, unspecified vomiting type; Partial small bowel obstruction (HCC) Start: 07-18-2022 Patient Outreach Slivia Hicks RN Work Phone: [facility] Comment on above: Transition Of Care ( [facility] 07/17/22 UTI, Partial bowel obstruction) Start: 07-17-2022 Refill Kentrell gould MD Work Phone: [facility] Comment on above: Refill Request Start: 07-14-2022 End: 07-17-2022 Evaluation and management of inpatient SHARON FUNEZ Facility:[facility] Start: 07-14-2022 End: 07-17-2022 Subsequent hospital visit by physician Provider [facility] Comment on above: Discharge Summary - [facility]/2022 11:50 [place] [address] HEALTH INFORMATION MANAGEMENT DISCHARGE SUMMARY Patient: KAITLYN ESCOBAR ANUJA CARR M.D. [id number] F Status: ADM IN [address] [place] [address]-A Date of Admission: 07/14/22 Discharge Summary Date of Discharge: 07/17/22 Discharge Diagnosis: 1. UTI (urinary tract infection) 2. SBO (small bowel obstruction) HPI: see H&P Hospital Course: Admitted with UTI and partial sbo treated conservatively and improved urine cx reviewed discussed with ID. no home going abx reqs per ID discussed DC plans with pt advised close outpt f/u with PCP/surgery expressed agreement and understanding with DC plans ok for home General Appearance Alert, Oriented X3, Cooperative, Appears Stated Age, No Acute Distress HEENT Atraumatic, Mucous membranes dry Lungs Clear to Auscultation, Normal Air Movement Neck Supple, No JVD Cardiovascular NSR, Normal S1, S2 Abdomen Soft, No Masses, hypoactive bowel sounds lower quadrants tender to palpation LLQ Extremities No Cyanosis, No Edema Skin No Rashes, No Breakdown, No Significant Lesion Neurological Normal Speech, Normal Tone, Intact/non-focal Psych/Mental Status Normal Affect, Normal Mood, Pleasant Time: 32 mins Orders/Scripts Active Scripts Continue taking these medications: Medication Dose/Rte/Freq Days Qty Refills Max Daily Dose BuPROPion* Hcl XL 150 MILLIGRAM ORAL None (Wellbutrin* XL) [address] ALPRAZolam* (Xanax*) 1 MG 1 MILLIGRAM ORAL None TAB TWICE DAILY Levothyroxine Sodium* 50 MICROGRAM ORAL None (Synthroid*) 50 MCG TABLET DAILY Apixaban* (Eliquis*) 5 MG TAB 5 MILLIGRAM ORAL None TWICE DAILY Zolpidem* Tartrate (Ambien*) 10 MILLIGRAM ORAL None 10 MG TAB AT BEDTIME Omeprazole* (Prilosec*) 20 MG 20 MILLIGRAM ORAL None CAPCR DAILY Dicyclomine* Hcl (Bentyl*) 10 MILLIGRAM ORAL None 10 MG CAP EVERY 6 HOURS NEEDED as needed for ABDOMINAL CRAMPS Ondansetron* ODT 4 MILLIGRAM ORAL 10 None (Zofran* Odt) 4 MG ODT EVERY 8 HOURS NEEDED as needed for NAUSEA AND/OR VOMITING Docusate Sodium (Dulcoease) 100 MILLIGRAM ORAL None 100 MG CAPSULE TWICE DAILY Ezetimibe* (Zetia*) 10 MG TAB 10 MILLIGRAM ORAL None DAILY Discharge Condition: Stable Disposition: Home 07/17/22 1155 ANUJA WALKER M.D. cc: << Signature on File>> Reported By: ANUJA WALKER M.D. Signed By: ANUJA WALKER M.D. Tests performed at: [address] [id number] Start: 07-10-2022 Telephone encounter Kentrell Dhaliwal MD Work Phone: [facility] Comment on above: Patient Update; Medi cation Problem Start: 07-07-2022 End: 07-07-2022 Emergency department patient visit DAVID MITCHELL Facility:[facility] Start: 07-07-2022 Telephone encounter Kentrell Dhaliwal MD Work Phone: [facility] Comment on above: Patient Question Start: 07-07-2022 End: 07-07-2022 Subsequent hospital visit by physician Provider [facility] Start: 07-04-2022 Refill Kentrell gould MD Work Phone: [facility] Comment on above: Refill Request Start: 06-20-2022 Telephone encounter Kentrell Dhaliwal MD Work Phone: [facility] Comment on above: Patient Question Start: 06-18-2022 Refill Kentrell gould MD Work Phone: [facility] Comment on above: Refill Request Start: 06-06-2022 Refill Kentrell gould MD Work Phone: [facility] Comment on above: Refill Request Start: 06-06-2022 Refill Kentrell gould MD Work Phone: [facility] Comment on above: Refill Request Start: 05-30-2022 End: 05-30-2022 Patient encounter procedure Kentrell Dhaliwal MD Work Phone: [facility] Comment on above: Syncope, unspecified syncope type (Primary Dx); Anxiety and depression; Irritable bowel syndrome with both constipation and diarrhea; Gastroesophageal reflux disease, unspecified whether esophagitis present; Hypothyroidism, acquired; SBO (small bowel obstruction) (HCC); Recurrent UTI (urinary tract infection) Start: 05-18-2022 Telephone encounter Kentrell Dhaliwal MD Work Phone: [facility] Comment on above: Patient Question Refill Request Start: 05-10-2022 End: 05-12-2022 Evaluation and management of inpatient MARILYN LYNN Facility:[facility] Start: 05-09-2022 Patient Outreach Maria C Delarosa ts FORENSIC TECHNICIAN Work Phone: [facility] Comment on above: Ambulatory Social Wo rk Start: 05-05-2022 Telephone encounter Kentrell Dhaliwal MD Work Phone: [facility] Comment on above: Insurance Authorizat ion Medication Problem Start: 05-04-2022 Refill Kentrell gould MD Work Phone: [facility] Comment on above: Refill Request Start: 05-04-2022 Telephone encounter Gladys Mauricio RN [facility] Comment on above: ER F/U Start: 05-03-2022 End: 05-04-2022 Emergency department patient visit ABEL A JAKE Facility:[facility] Start: 05-03-2022 End: 05-03-2022 Subsequent hospital visit by physician Provider [facility] Start: 05-02-2022 Telephone encounter Kentrell Dhaliwal MD Work Phone: [facility] Comment on above: Patient Update; Medi cation Request Start: 04-24-2022 ambulatory Jasmin Schmidt RN [facility] Comment on above: ER F/U Start: 04-21-2022 Telephone encounter Kentrell Dhaliwal MD Work Phone: [facility] Comment on above: Insurance Authorizat ion Start: 04-21-2022 End: 04-21-2022 Emergency department patient visit MANUEL BARBOSA Facility:[facility] Start: 04-21-2022 End: 04-21-2022 Subsequent hospital visit by physician Provider [facility] Comment on above: ABD PAIN Start: 04-20-2022 Telephone encounter Kentrell Dhaliwal MD Work Phone: [facility] Comment on above: Results Start: 04-19-2022 ambulatory KENTRELL DHALIWAL II Facil ity:[facility] Start: 04-19-2022 End: 04-19-2022 Subsequent hospital visit by physician Provider [facility] Comment on above: K21.9 E11.9 R79.89 E 03.9 Start: 04-19-2022 End: 04-19-2022 Patient encounter procedure Kentrell Dhaliwal MD Work Phone: [facility] Comment on above: Anxiety and depressi on (Primary Dx); Irritable bowel syndrome with both constipation and diarrhea; Gastroesophageal reflux disease, unspecified whether esophagitis present; Type 2 diabetes mellitus without complication, without long-term current use of insulin ([facility]); Elevated liver function tests; Hypothyroidism, acquired; Myalgias; Chronic insomnia Start: 04-03-2022 Refill Kentrell gould MD Work Phone: [facility] Comment on above: Refill Request Start: 04-02-2022 Refill Kentrell gould MD Work Phone: [facility] Comment on above: Refill Request Start: 03-21-2022 Refill Kentrell gould MD Work Phone: [facility] Comment on above: Refill Request Start: 03-01-2022 Telephone encounter Kentrell Dhaliwal MD Work Phone: [facility] Comment on above: Patient Question Start: 02-28-2022 End: 02-28-2022 Patient encounter procedure Kentrell Dhaliwal MD Work Phone: [facility] Comment on above: Anxiety and depressi on (Primary Dx); Chronic insomnia; Gastroesophageal reflux disease, unspecified whether esophagitis present; Type 2 diabetes mellitus without complication, without long-term current use of insulin ([facility]); SBO (small bowel obstruction) ([facility]) Start: 02-22-2022 Telephone encounter Kentrell Dhaliwal MD Work Phone: [facility] Comment on above: Patient Update Start: 02-03-2022 Refill Kentrell gould MD Work Phone: [facility] Comment on above: Refill Request Start: 02-02-2022 Patient Outreach Lelia Benavides RN [employer] Comment on above: Transition Of Care ( [facility] Discharged 02/01/2022. TCM Initial encounter) Start: 01-24-2022 Telephone encounter Kentrell Dhaliwal MD Work Phone: [facility] Comment on above: Patient Question Refill Request Start: 01-23-2022 Refill Kentrell gould MD Work Phone: [facility] Comment on above: Refill Request Start: 01-23-2022 Telephone encounter Kentrell Dhaliwal MD Work Phone: [facility] Comment on above: Referral Request Start: 01-17-2022 End: 01-17-2022 Patient encounter procedure Jaswant Moseley MD Work Phone: [facility] Comment on above: History of small bow el obstruction (Primary Dx); Abdominal pain, unspecified abdominal location Start: 01-13-2022 Telephone encounter Kentrell Dhaliwal MD Work Phone: [facility] Comment on above: Results Patient Update Start: 01-12-2022 End: 01-12-2022 Subsequent hospital visit by physician Provider [facility] Comment on above: GENERALIZED ABD PAIN ELEVATED LFT Start: 01-09-2022 Telephone encounter Kentrell Dhaliwal MD Work Phone: [facility] Comment on above: Orders Start: 01-06-2022 Telephone encounter Kentrell Dhaliwal MD Work Phone: [facility] Comment on above: Results Start: 01-05-2022 End: 01-05-2022 Subsequent hospital visit by physician Provider [facility] Comment on above: R53.83 E11.9 E03.9 K 21.9 E53.8 E55.9 D64.9 Start: 01-05-2022 Telephone encounter Kentrell Dhaliwal MD Work Phone: [facility] Comment on above: Insurance Authorizat ion Start: 12-28-2021 End: 12-28-2021 Subsequent hospital visit by physician Provider [facility] Comment on above: ABDOMINAL PAIN HISTO RY OF SM BOWEL OBSTRUCTION Start: 12-27-2021 End: 12-27-2021 Patient encounter procedure Jaswant Moseley MD Work Phone: [facility] Comment on above: History of small bow el obstruction (Primary Dx); Abdominal pain, unspecified abdominal location; Post-operative state Start: 12-27-2021 Telephone encounter Jaswant reardon MD Work Phone: [facility] Comment on above: Scheduling (UPPER GI SERIES ) Start: 12-26-2021 End: 12-26-2021 Subsequent hospital visit by physician Provider [facility] Comment on above: K65.1 PERITONEAL ABS CESS Start: 12-21-2021 Patient Outreach Lelia Benavides RN AG [employer] Comment on above: Transition Of Care ( [facility] Discharged 12/20/2021. TCM Initial encounter) Start: 12-21-2021 Refill Kentrell gould MD Work Phone: [facility] Comment on above: Refill Request Start: 12-20-2021 End: 12-20-2021 Patient encounter procedure Jaswant Moseley MD Work Phone: [facility] Comment on above: History of small bow el obstruction (Primary Dx); On total parenteral nutrition (TPN); Post-operative state Start: 12-20-2021 End: 12-20-2021 Subsequent hospital visit by physician Kentrell Dhaliwal II, MD Work Phone: [facility] Comment on above: BOWEL OBSTRUCTION/RM 03[facility] Start: 12-19-2021 End: 12-19-2021 Subsequent hospital visit by physician Fernie Aranda Work Phone: [facility] Comment on above: CLIENT BILL Start: 12-15-2021 ambulatory Lelia Benavides RN AG VNS Start: 12-15-2021 End: 12-16-2021 Subsequent hospital visit by physician Fernie Aranda Work Phone: [facility] Comment on above: CLIENT BILL Transition Of Care ( [facility] Update) Start: 12-14-2021 End: 12-14-2021 Patient encounter procedure Rosanna Lilly DO Work Phone: [facility] Comment on above: History of small bow el obstruction (Primary Dx); On total parenteral nutrition (TPN) Start: 12-08-2021 End: 12-08-2021 Subsequent hospital visit by physician Fernie Aranda Work Phone: [facility] Comment on above: CLIENT BILL Start: 12-05-2021 Orders Only Jaswant Moseley MD Work Phone: [facility] Comment on above: Peritoneal abscess ( HCC) (Primary Dx); Adverse effect of treatment, initial encounter Orders (CT abd/pelvi s auth) Start: 03-04-2005 Documentation procedure Geovanny Bonilla MD Work Phone: [facility] Start: 03-04-2005 Historic EMR Geovanny dale MD Work Phone: [facility] Procedures Date Procedure Procedure Detail Performing Clinician Start: 12-13-2023 Diagnostic radiograp hy of abdomen Dr. Kentrell Dhaliwal Work Phone: Start: 12-09-2023 Plain X-ray abdomen Dr. Kentrell Dhaliwal Work Phone: Start: 12-08-[address] e detection Dr. Kentrell Dhaliwal Work Phone: Start: 12-07-[address] Kentrell Dhaliwal Work Phone: Start: 12-07-2023 Plain X-ray abdomen Dr. Kentrell Dhaliwal Work Phone: Start: 12-06-2023 Computed tomography of abdomen and pelvis with intravenous contrast Dr. Kentrell Dhaliwal Work Phone: Start: 04-01-2023 Plain X-ray abdomen Dr. Jose Stanton Work Phone: Start: 04-01-2023 Plain X-ray abdomen Dr. Jose Stanton Work Phone: Start: 03-31-2023 Computed tomography of abdomen and pelvis with intravenous contrast Dr. Jose Stanton Work Phone: Start: 03-17-2023 Plain X-ray abdomen Dr. Jose Stanton Work Phone: Start: 03-16-[address] Jose Stanton Work Phone: Start: 03-16-2023 Plain X-ray abdomen Dr. Jose Stanton Work Phone: Start: 03-16-2023 Computed tomography of abdomen and pelvis with intravenous contrast Dr. Jose Stanton Work Phone: Start: 12-11-2022 Computed tomography of abdomen and pelvis with intravenous contrast Start: 11-23-2022 BASIC METABOLIC PNL Florin olinda Dhaliwal MD Work Phone: Start: 11-23-2022 CBC + DIFF Kentrell Dhaliwal MD Work Phone: Start: 11-23-2022 Hemoglobin A1c/Hemoglobin.total in Blood Kentrell Dhaliwal MD Work Phone: Start: 11-23-2022 HEPATIC FUNCTION PNL Ro dylan Dhaliwal MD Work Phone: Start: 11-23-2022 TSH BLD Kentrell Dhaliwal MD Work Phone: Start: 10-16-2022 Dup-scan xtr veins unilateral/limited study Leo Emerson Work Phone: Start: 10-14-2022 Ecg routine ecg w/le ast 12 lds trcg only w/o i&r [facility] Provider Start: 10-14-2022 BASIC METABOLIC PNL Octavio yamile Emerson Work Phone: Start: 10-14-2022 CBC + DIFF Leo Emerson Work Phone: Start: 10-14-2022 CK CREATINE KINASE Jony Emerson Work Phone: Start: 10-14-2022 Creatine kinase.MB [Mass/volume] in Serum or Plasma Leo Emerson Work Phone: Start: 10-14-2022 Radiologic exam ches t single view Leo Emerson Work Phone: Start: 10-14-2022 TROPONIN T Leo Emerson Work Phone: Start: 07-21-2022 Radiologic exam abdo men 2 views Travon Rene DO Work Phone: Start: 07-17-2022 CREATININE BLD Provider [facility] Start: 07-17-2022 Radiologic exam abdo men 1 view Kentrell Pacheco MD Work Phone: Start: 07-16-2022 BASIC METABOLIC PNL Pro vider [facility] Start: 07-16-2022 CBC + DIFF Provider C ch[facility] Start: 07-15-2022 CREATININE BLD Provider [facility] Start: 07-15-2022 Radiologic exam abdo men 1 view Kentrell Pacheco MD Work Phone: Start: 07-14-2022 EXPEDITED COVID19 Sharon Klepfemig Funez Work Phone: Start: 07-13-2022 Bacteria identified in Blood by Culture Sharon Klepfemig Funez Work Phone: Start: 07-13-2022 Bacteria identified in Urine by Culture Sharon Klepfemig Funez Work Phone: Start: 07-13-2022 CBC + DIFF Sharon Klep femig Funez Work Phone: Start: 07-13-2022 URINALYSIS WITH MICROSCOPIC, REFLEX CULTURE Sharon Klepfemig Funez Work Phone: Start: 07-13-2022 URINALYSIS, WITH MICROSCOPIC Sharon Klepfemig Funez Work Phone: Start: 07-13-2022 BASIC METABOLIC PNL Ell en Klepzig Funez Work Phone: Start: 07-13-2022 Ct abdomen & pelvis w/contrast material Sharonnatalie Gurrola Funez Work Phone: Start: 07-07-2022 BASIC METABOLIC PNL Gilbert in Rick Mitchell Work Phone: Start: 07-07-2022 CBC + DIFF David Oscar Mitchell Work Phone: Start: 07-07-2022 HEPATIC FUNCTION PNL Ke consuelo Rick Mitchell Work Phone: Start: 07-07-2022 LIPASE BLD David Mitchell Work Phone: Start: 07-07-2022 URINALYSIS WITH MICROSCOPIC, REFLEX CULTURE David Mitchell Work Phone: Start: 07-07-2022 URINALYSIS, WITH MICROSCOPIC David Mitchell Work Phone: Start: 05-03-2022 Ecg routine ecg w/le ast 12 lds trcg only w/o i&r Ccf Provider Start: 05-03-2022 Ct abdomen & pelvis w/contrast material Abel Joseph Work Phone: Start: 05-03-2022 BASIC METABOLIC PNL Karis chel Joseph Work Phone: Start: 05-03-2022 CBC + DIFF AbelSonia Joseph Work Phone: Start: 05-03-2022 HEPATIC FUNCTION PNL Na flaco Joseph Work Phone: Start: 05-03-2022 LACTIC ACID/LACTATE Karis chel Joseph Work Phone: Start: 05-03-2022 LIPASE BLD AbelSonia Joseph Work Phone: Start: 05-03-2022 TROPONIN T Abel Amy Joseph Work Phone: Start: 05-03-2022 UA WITH CULTURE IF INDICATED Abelchel Joseph Work Phone: Start: 05-03-2022 URINALYSIS, WITH MICROSCOPIC Abelchel Joseph Work Phone: Start: 04-21-2022 UA WITH CULTURE IF INDICATED Manuel Morales Current Work Phone: Start: 04-21-2022 EXPEDITED COVID19 Manuel Morales Current Work Phone: Start: 04-21-2022 BASIC METABOLIC PNL Zhang Morales Current Work Phone: Start: 04-21-2022 CBC + DIFF Manuel estrada Current Work Phone: Start: 04-21-2022 Ct abdomen & pelvis w/contrast material Manuel Morales Current Work Phone: Start: 04-21-2022 HEPATIC FUNCTION PNL Maggy mildred Morales Current Work Phone: Start: 04-21-2022 LIPASE BLD Manuel estrada Current Work Phone: Start: 04-19-2022 BASIC METABOLIC PNL Florin Dhaliwal MD Work Phone: Start: 04-19-2022 CBC + DIFF Kentrell Dhaliwal MD Work Phone: Start: 04-19-2022 HEPATIC FUNCTION PNL Ro dylan Dhaliwal MD Work Phone: Start: 04-19-2022 LIPID PANEL BASIC Todd Dhaliwal MD Work Phone: Start: 04-19-2022 TSH WILL Dhaliwal MD Work Phone: Start: 01-12-2022 Us abdominal real ti me w/image documentation Kentrell Dhaliwal MD Work Phone: Start: 01-05-2022 BASIC METABOLIC PNL Florin Dhaliwal MD Work Phone: Start: 01-05-2022 CBC + DIFF Kentrell Dhaliwal MD Work Phone: Start: 01-05-2022 HEPATIC FUNCTION PNL Ro dylan Dhaliwal MD Work Phone: Start: 01-05-2022 IRON + TIBC Kentrell Dhaliwal MD Work Phone: Start: 01-05-2022 TSH WILL Dhaliwal MD Work Phone: Start: 01-05-2022 VITAMIN B12 BLOOD Todd Dhaliwal MD Work Phone: Start: 01-05-2022 VITAMIN D 25 HYDROXY Ro dylan Dhaliwal MD Work Phone: Start: 03-03-2005 SURGICAL PATHOLOGY, CONVERTED Geovanny Bonilla MD Work Phone: Plan of Treatment Date Care Activity Detail Author Start: 2026 RSV Vaccine (1 - 1-dose 75+ series) RSV Vaccine (1 - 1-dose 75+ series) [facility] Start: 03-05-2026 Annual PCP Team Chronic Disease Visit Annual PCP Team Chronic Disease Visit [facility] Start: 01-08-2026 Annual PCP Team Chronic Disease Visit Annual PCP Team Chronic Disease Visit [facility] Start: 01-08-2026 Covid-19 Vaccine ( season) Covid-19 Vaccine () [facility] Comment on above: Postponed from 05/18/2024 (Declined at t his time) Start: 09-26-2025 Annual PCP Team Chronic Disease Visit Annual PCP Team Chronic Disease Visit [facility] Start: 09-03-2025 Annual PCP Team Chronic Disease Visit Annual PCP Team Chronic Disease Visit [facility] Start: 07-10-2025 End: 07-10-2025 Patient encounter procedure 07/10/2025 2:00 PM EDT Office Visit [facility] [address] [place], [place] [id number] Kentrell Dhaliwal II, MD [address] [place], [place] [id number] 6 months [facility] Comment on above: 6 months Start: 07-04-2025 Annual PCP Team Chronic Disease Visit Annual PCP Team Chronic Disease Visit [facility] Start: 06-11-2025 Annual PCP Team Chronic Disease Visit Annual PCP Team Chronic Disease Visit [facility] Start: 05-18-2025 Influenza vaccination [facility] Start: 03-30-2025 End: 03-30-2025 Patient encounter procedure [facility] Comment on above: Dx: Vertigo [R42] Start: 03-08-2025 Screening for malignant neoplasm of colon [facility] Start: 03-05-2025 End: 03-05-2025 Patient encounter procedure 03/05/2025 1:00 PM EDT Office Visit [facility] [address] [place], [place] [id number] Kentrell Dhaliwal II, MD [address] [place], [place] [id number] palpitations [facility] Comment on above: palpitations Start: 02-26-2025 End: 05-28-2025 25-hydroxyvitamin D3 [Mass/volume] in Serum or Plasma [facility] Comment on above: Expected: 02/26/2025, Expires: Start: 02-26-2025 End: 05-28-2025 Cobalamin (Vitamin B12) [Mass/volume] in Serum or Plasma [facility] Comment on above: Expected: 02/26/2025, Expires: Start: 02-26-2025 End: 05-28-2025 Thyrotropin [Units/volume] in Serum or Plasma [facility] Work Phone: Comment on above: Expected: 02/26/2025, Expires: Start: 01-08-2025 End: 01-08-2025 Patient encounter procedure [facility] Comment on above: 4 MONTH FOLLOW UP Start: 01-01-2025 Annual PCP Team Chronic Disease Visit Annual PCP Team Chronic Disease Visit [facility] Start: 12-18-2024 End: 12-18-2024 Patient encounter procedure 12/18/2024 2:00 PM EDT Office Visit [address] [place] [address] Kentrell Dhaliwal II, MD [address] [place] [address] [place] [address] Cough, phlegm in throat [facility] Comment on above: Cough, phlegm in throat Start: 11-27-2024 Annual PCP Team Chronic Disease Visit Annual PCP Team Chronic Disease Visit [facility] Start: 09-26-2024 End: 09-26-2024 Patient encounter procedure 09/26/2024 2:40 PM EST Office Visit [facility] [address] [place] [address] Kentrell Dhaliwal II, MD [address] [place], [place] [id number] GLENNY d/c [facility] Comment on above: GLENNY d/c [facility] Start: 09-22-2024 End: 09-22-2024 Patient encounter procedure [facility] Comment on above: 3 MONTH FOLLOW UP 3 MONTH FOLLOW UP (O pen Gaps: Breast screeing, Diabetic eye Exam, A1C, uACR) Start: 09-17-2024 Advance Directive Discussion Advance Directive Discussion [facility] Start: 09-17-2024 Medicare Advantage Annual Wellness Visit Medicare Advantage Annual Wellness Visit [facility] Start: 09-03-2024 End: 09-03-2024 Patient encounter procedure 09/03/2024 4:00 PM EST Office Visit [address] [place] [address] Kentrell Dhaliwal II, MD [address] [place] [address] [place] [address] 3 MONTH FOLLOW UP, arthritis and not being able to hold items(Open Gaps: Breast screeing, Diabetic eye Exam, A1C, uACR) [facility] Comment on above: 3 MONTH FOLLOW UP, arthritis and not holland ng able to hold items(Open Gaps: Breast screeing, Diabetic eye Exam, A1C, uACR) Start: 07-24-2024 Annual PCP Team Chronic Disease Visit Annual PCP Team Chronic Disease Visit [facility] Start: 06-11-2024 End: 06-11-2024 Patient encounter procedure 06/11/2024 10:00 AM EDT Office Visit [address] [place] [address] Kentrell Dhaliwal II, MD [address] [place] [address] [place] [address] 3 MONTH FOLLOW UP [facility] Comment on above: 3 MONTH FOLLOW UP Start: 05-18-2024 Covid-19 Vaccine ( season) Covid-19 Vaccine ( season) [facility] Start: 05-18-2024 Covid-19 Vaccine ( season) Covid-19 Vaccine ( season) [facility] Start: 05-18-2024 Influenza vaccination [facility] Start: 05-07-2024 End: 05-07-2024 Patient encounter procedure 05/07/2024 9:20 AM EDT Office Visit [facility] [address] [place] [place] [address] Kentrell Dhaliwal II, MD [address] [place] [address] [place] [address] 3 MONTH FOLLOW UP [facility] Comment on above: 3 MONTH FOLLOW UP Start: 04-18-2024 ANNUAL PCP TEAM CHRONIC DISEASE VISIT ANNUAL PCP TEAM CHRONIC DISEASE VISIT [facility] Start: 04-09-2024 End: 04-09-2024 Patient encounter procedure 04/09/2024 1:00 PM EDT Office Visit [address] [place] [address] Kentrell Dhaliwal II, MD [address] [place] [address] [place] [address] 3 MONTH FOLLOW UP [facility] Comment on above: 3 MONTH FOLLOW UP Start: 12-13-2023 [facility] Start: 12-11-2023 Patient discharge [facility] Start: 12-08-2023 Application of intermittent pneumatic compression device [facility] Start: 12-07-2023 Assessment of risk of venous thromboembolism [facility] Start: 12-07-2023 Fall prevention [facility] Start: 12-07-2023 Inhalation therapy procedure [facility] Start: 12-07-2023 Insertion of catheter into peripheral vein [facility] Start: 12-07-2023 Introduction of urinary catheter [facility] Start: 12-07-2023 Measuring intake and output [facility] Start: 12-07-2023 End: 12-07-2023 Patient referral to dietitian [facility] Start: 12-07-2023 Providing care according to standard [facility] Start: 12-07-2023 Provision of activity privileges [facility] Start: 12-07-2023 Referral to general surgeon [facility] Start: 12-07-2023 Referral to occupational therapist [facility] Start: 12-07-2023 Referral to service [facility] Start: 12-07-2023 [facility] Start: 12-07-2023 Hospital admission, emergency, from emergency room, medical nature [facility] Start: 12-07-2023 Prothrombin time [facility] Start: 12-07-2023 Verification routine [facility] Start: 12-07-2023 Admission procedure [facility] Start: 11-24-2023 ANNUAL PCP TEAM CHRONIC DISEASE VISIT ANNUAL PCP TEAM CHRONIC DISEASE VISIT [facility] Start: 09-17-2023 Advance Directive Discussion Advance Directive Discussion [facility] Start: 05-26-2023 Hemoglobin A1c measurement HbA1C [facility] Start: 05-26-2023 Hemoglobin A1c/Hemoglobin.total in Blood HBA1C [facility] Start: 05-18-2023 Covid-19 Vaccine () Covid-19 Vaccine () [facility] Start: 05-18-2023 Influenza vaccination [facility] Start: 04-19-2023 Hepatitis B surface antibody level LDL CHOLESTEROL [facility] Start: 04-01-2023 Bacteria identified in Blood by Culture Blood Culture [facility] Start: 03-31-2023 End: 04-01-2023 Blood culture [facility] Start: 03-25-2023 Blood chemistry [facility] Start: 03-24-2023 Blood chemistry [facility] Start: 03-23-2023 Blood chemistry [facility] Start: 03-22-2023 Blood chemistry [facility] Start: 03-21-2023 Blood chemistry [facility] Start: 03-20-2023 Blood chemistry [facility] Start: 03-19-2023 Blood chemistry [facility] Start: 03-18-2023 Patient discharge [facility] Start: 03-17-2023 [facility] Start: 03-16-2023 [facility] Start: 03-16-2023 Application of intermittent pneumatic compression device [facility] Start: 03-16-2023 Following clinical pathway protocol [facility] Start: 03-16-2023 Assessment of risk of venous thromboembolism [facility] Start: 03-16-2023 Inhalation therapy procedure [facility] Start: 03-16-2023 Insertion of catheter into peripheral vein [facility] Start: 03-16-2023 Insertion of nasogastric tube [facility] Start: 03-16-2023 Introduction of urinary catheter [facility] Start: 03-16-2023 Measuring intake and output [facility] Start: 03-16-2023 Oxygen therapy [facility] Start: 03-16-2023 Providing care according to standard [facility] Start: 03-16-2023 Provision of activity privileges [facility] Start: 03-16-2023 Referral to general surgeon [facility] Start: 03-16-2023 Referral to service [facility] Start: 03-16-2023 [facility] Start: 03-16-2023 Verification routine [facility] Start: 03-16-2023 Admission procedure [facility] Start: 03-16-2023 Consultation [facility] Start: 03-16-2023 Patient referral to dietitian [facility] Start: 02-28-2023 ANNUAL PCP TEAM CHRONIC DISEASE VISIT ANNUAL PCP TEAM CHRONIC DISEASE VISIT [facility] Start: 01-05-2023 ANNUAL PCP TEAM CHRONIC DISEASE VISIT ANNUAL PCP TEAM CHRONIC DISEASE VISIT [facility] Start: 11-23-2022 End: 01-23-2023 Basic metabolic 2000 panel - Serum or Plasma BASIC METABOLIC PNL Lab Routine Hypothyroidism, acquired Type 2 diabetes mellitus without complication, without long-term current use of insulin (HCC) Gastroesophageal reflux disease, unspecified whether esophagitis present Anxiety and depression Elevated liver function tests Expected: 11/23/2022, Expires: 01/23/2023 [facility] Work Phone: Comment on above: Expected: 11/23/2022, Expires: 3 Start: 11-23-2022 End: 01-23-2023 CBC panel - Blood by Automated count CBC Lab Routine Hypothyroidism, acquired Type 2 diabetes mellitus without complication, without long-term current use of insulin (HCC) Gastroesophageal reflux disease, unspecified whether esophagitis present Anxiety and depression Elevated liver function tests Expected: 11/23/2022, Expires: 01/23/2023 [facility] Work Phone: Comment on above: Expected: 11/23/2022, Expires: 3 Start: 11-23-2022 End: 01-23-2023 Hepatic function 2000 panel - Serum or Plasma HEPATIC FUNCTION PNL Lab Routine Hypothyroidism, acquired Type 2 diabetes mellitus without complication, without long-term current use of insulin (HCC) Gastroesophageal reflux disease, unspecified whether esophagitis present Anxiety and depression Elevated liver function tests Expected: 11/23/2022, Expires: 01/23/2023 [facility] Work Phone: Comment on above: Expected: 11/23/2022, Expires: 3 Start: 11-23-2022 End: 01-23-2023 Thyrotropin [Units/volume] in Serum or Plasma TSH BLD Lab Routine Hypothyroidism, acquired Type 2 diabetes mellitus without complication, without long-term current use of insulin (HCC) Gastroesophageal reflux disease, unspecified whether esophagitis present Anxiety and depression Elevated liver function tests Expected: 11/23/2022, Expires: 01/23/2023 [facility] Work Phone: Comment on above: Expected: 11/23/2022, Expires: 3 Start: 09-17-2022 ADVANCE DIRECTIVE DISCUSSION ADVANCE DIRECTIVE DISCUSSION [facility] Start: 08-30-2022 ANNUAL PCP TEAM CHRONIC DISEASE VISIT ANNUAL PCP TEAM CHRONIC DISEASE VISIT [facility] Start: 08-25-2022 Hepatitis B surface antibody level LDL CHOLESTEROL [facility] Start: 05-18-2022 Influenza vaccination INFLUENZA (#1) [facility] Start: 04-19-2022 End: 06-19-2022 Basic metabolic 2000 panel - Serum or Plasma BASIC METABOLIC PNL Lab Routine Gastroesophageal reflux disease, unspecified whether esophagitis present Type 2 diabetes mellitus without complication, without long-term current use of insulin (HCC) Elevated liver function tests Hypothyroidism, acquired Expected: 04/19/2022, Expires: 06/19/2022 [facility] Work Phone: Comment on above: Expected: 04/19/2022, Expires: 2 Start: 04-19-2022 End: 06-19-2022 CBC panel - Blood by Automated count CBC Lab Routine Gastroesophageal reflux disease, unspecified whether esophagitis present Type 2 diabetes mellitus without complication, without long-term current use of insulin (HCC) Elevated liver function tests Hypothyroidism, acquired Expected: 04/19/2022, Expires: 06/19/2022 [facility] Work Phone: Comment on above: Expected: 04/19/2022, Expires: 2 Start: 04-19-2022 End: 06-19-2022 Hepatic function 2000 panel - Serum or Plasma HEPATIC FUNCTION PNL Lab Routine Elevated liver function tests Expected: 04/19/2022, Expires: 06/19/2022 [facility] Work Phone: Comment on above: Expected: 04/19/2022, Expires: 2 Start: 04-19-2022 End: 06-19-2022 Lipid 1996 panel - Serum or Plasma LIPID PANEL BASIC Lab Routine Gastroesophageal reflux disease, unspecified whether esophagitis present Type 2 diabetes mellitus without complication, without long-term current use of insulin (HCC) Elevated liver function tests Hypothyroidism, acquired Expected: 04/19/2022, Expires: 06/19/2022 [facility] Work Phone: Comment on above: Expected: 04/19/2022, Expires: 2 Start: 04-19-2022 End: 06-19-2022 Thyrotropin [Units/volume] in Serum or Plasma TSH BLD Lab Routine Gastroesophageal reflux disease, unspecified whether esophagitis present Type 2 diabetes mellitus without complication, without long-term current use of insulin (HCC) Elevated liver function tests Hypothyroidism, acquired Expected: 04/19/2022, Expires: 06/19/2022 [facility] Work Phone: Comment on above: Expected: 04/19/2022, Expires: 2 Start: 11-15-2021 Hemoglobin A1c/Hemoglobin.total in Blood HBA1C [facility] Start: 11-14-2021 COVID-19 VACCINE (4 - Booster for Moderna series) COVID-19 VACCINE (4 - Booster for Moderna series) [facility] Start: 09-17-2021 ADVANCE DIRECTIVE DISCUSSION ADVANCE DIRECTIVE DISCUSSION [facility] Start: 09-11-2021 COVID-19 VACCINE (4 - Booster for Moderna series) COVID-19 VACCINE (4 - Booster for Moderna series) [facility] Start: 09-11-2021 COVID-19 VACCINE (4 - Moderna series) COVID-19 VACCINE (4 - Moderna series) [facility] Start: 05-13-2017 Shingrix Vaccine (2 of 3) Shingrix Vaccine (2 of 3) [facility] Start: 2016 BONE DENSITY BONE DENSITY [facility] Start: 2016 Bone Density Screening Bone Density Screening [facility] Start: 2016 PNEUMOVAX AGE 65 AND OVER WITH 5YR LOOKBACK (#1) PNEUMOVAX AGE 65 AND OVER WITH 5YR LOOKBACK (#1) [facility] Start: 2016 Screening for osteoporosis Bone Density Screening [facility] Start: 2011 Hepatitis B Vaccine (1 of 3 - Risk 3-dose series) Hepatitis B Vaccine (1 of 3 - Risk 3-dose series) [facility] Start: 2011 RSV Vaccine (1 - 1-dose 60+ series) RSV Vaccine (1 - 1-dose 60+ series) [facility] Start: 11-18-2004 Urine microalbumin profile DTaP,Tdap,Td Vaccine (1 - Tdap) [facility] Start: 2001 SHINGRIX VACCINE (1 of 2) SHINGRIX VACCINE (1 of 2) [facility] Start: 1996 COLOGUARD (FIT-DNA) COLOGUARD (FIT-DNA) [facility] Start: 1996 Colonoscopy COLONOSCOPY [facility] Start: 1996 COLORECTAL CANCER SCREENING COLORECTAL CANCER SCREENING [facility] Start: [address] COLONOGRAPHY [facility] Start: 1996 FECAL OCCULT BLOOD FECAL OCCULT BLOOD [facility] Start: 1996 Screening for malignant neoplasm of colon [facility] Start: 1996 SIGMOIDOSCOPY SIGMOIDOSCOPY [facility] Start: 1991 Mammography [facility] Start: 1991 Screening for malignant neoplasm of breast Mammogram Screening [facility] Start: 1970 Urine microalbumin profile [facility] Start: 1969 HEPATITIS C SCREENING HEPATITIS C SCREENING [facility] Start: 1969 Hepatitis C screening Hepatitis C Screening [facility] Start: 1961 3 comp foot exam completed DIABETIC FOOT EXAM [facility] Start: 1961 Diabetic foot examination Diabetic Foot Exam [facility] Start: 1961 Glaucoma screening Dilated Retinal Exam [facility] Start: 1961 Hepatitis B screening URINE ALBUMIN:CREATININE RATIO [facility] Start: 1961 Hepatitis C antibody, confirmatory test DILATED RETINAL EXAM [facility] Start: 1957 Pneumococcal Vaccine: 65+ (1 - PCV) Pneumococcal Vaccine: 65+ (1 - PCV) [facility] Start: 1957 PNEUMOCOCCAL: 65+ (1 - PCV) PNEUMOCOCCAL: 65+ (1 - PCV) [facility] Anion gap measurement [facility] Anion gap measurement [facility] Anion gap measurement [facility] Anion gap measurement [facility] An[facility] gap [facility] Anion gap measurement [facility] Anion gap measurement [facility] Bacteria identified in Blood by Culture BLOOD CULTURE Microbiology Routine 07/13/2022 11:27 PM EDT [facility] Work Phone: BUN/Creatinine ratio [facility] BUN/Creatinine ratio [facility] BUN/Creatinine ratio [facility] BUN/Creatinine ratio [facility] BUN/Creatinine ratio [facility] BUN/Creatinine ratio [facility] BUN/Creatinine ratio [facility] Calcium [Mass/volume ] in Serum or Plasma [facility] Calcium [Mass/volume ] in Serum or Plasma [facility] Calcium [Mass/volume ] in Serum or Plasma [facility] Calcium [Mass/volume ] in Serum or Plasma [facility] Calcium [Mass/volume ] in Serum or Plasma [facility] Calcium [Mass/volume ] in Serum or Plasma [facility] Calcium [Mass/volume ] in Serum or Plasma [facility] Carbon dioxide, tota l [Moles/volume] in Serum or Plasma [facility] Carbon dioxide, tota l [Moles/volume] in Serum or Plasma [facility] Carbon dioxide, tota l [Moles/volume] in Serum or Plasma [facility] Carbon dioxide, tota l [Moles/volume] in Serum or Plasma [facility] Carbon dioxide, tota l [Moles/volume] in Serum or Plasma [facility] Carbon dioxide, tota l [Moles/volume] in Serum or Plasma [facility] Carbon dioxide, tota l [Moles/volume] in Serum or Plasma [facility] Chloride [Moles/volu me] in Serum or Plasma [facility] Chloride [Moles/volu me] in Serum or Plasma [facility] Chloride [Moles/volu me] in Serum or Plasma [facility] Chloride [Moles/volu me] in Serum or Plasma [facility] Chloride [Moles/volu me] in Serum or Plasma [facility] Chloride [Moles/volu me] in Serum or Plasma [facility] Chloride [Moles/volu me] in Serum or Plasma [facility] Creatinine [Moles/vo lume] in Serum or Plasma [facility] Creatinine [Moles/vo lume] in Serum or Plasma [facility] Creatinine [Moles/vo lume] in Serum or Plasma [facility] Creatinine [Moles/vo lume] in Serum or Plasma [facility] Creatinine [Moles/vo lume] in Serum or Plasma [facility] Creatinine [Moles/vo lume] in Serum or Plasma [facility] Creatinine [Moles/vo lume] in Serum or Plasma [facility] End: 01-04-2023 Ct abdomen & pelvis w/contrast material CT ABD/PEL W IVCON Radiology Routine Adverse effect of treatment, initial encounter Peritoneal abscess (HCC) 1 Occurrences starting 12/05/2021 until 01/04/2023 [facility] Work Phone: Comment on above: 1 Occurrences starting 12/05/2021 until 01/04/2023 End: 03-05-2026 Echocardiography ECHO Cardiology Routine CHAVARRIA (dyspnea on exertion) Palpitations 1 Occurrences starting 03/05/2025 until 03/05/2026 [facility] Comment on above: 1 Occurrences starting 03/05/2025 until 03/05/2026 Gastrointestinal pathogens panel - Stool by RENATA with probe detection [facility] Glucose [Mass/volume ] in Serum or Plasma [facility] Glucose [Mass/volume ] in Serum or Plasma [facility] Glucose [Mass/volume ] in Serum or Plasma [facility] Glucose [Mass/volume ] in Serum or Plasma [facility] Glucose [Mass/volume ] in Serum or Plasma [facility] Glucose [Mass/volume ] in Serum or Plasma [facility] Glucose [Mass/volume ] in Serum or Plasma [facility] Hematocrit [Volume Fraction] of Blood [facility] Hematocrit [Volume Fraction] of Blood [facility] Hematocrit [Volume Fraction] of Blood [facility] Hematocrit [Volume Fraction] of Blood [facility] Hemoglobin [Mass/vol ume] in Blood [facility] Hemoglobin [Mass/vol ume] in Blood [facility] Hemoglobin [Mass/vol ume] in Blood [facility] Hemoglobin [Mass/vol ume] in Blood [facility] End: 11-16-2023 Hemoglobin A1c in Blood HGB A1C Lab Routine Hypothyroidism, acquired Type 2 diabetes mellitus without complication, without long-term current use of insulin (HCC) Gastroesophageal reflux disease, unspecified whether esophagitis present Anxiety and depression Elevated liver function tests Every 3 months for 4 Occurrences starting 11/23/2022 until 11/16/2023 [facility] Work Phone: Comment on above: Every 3 months for 4 Occurrences startin g 11/23/2022 until 11/16/2023 INR in Blood by Coagulation assay [facility] End: 02-26-2026 Iron and Iron binding capacity panel - Serum or Plasma IRON AND TIBC Lab Routine Gastroesophageal reflux disease, unspecified whether esophagitis present Hypothyroidism, acquired Iron deficiency anemia, unspecified iron deficiency anemia type Nausea Vitamin D deficiency Vitamin B12 deficiency Fatigue, unspecified type Drug-induced Parkinson's disease (HCC) Irritable bowel syndrome with both constipation and diarrhea Severe protein-calorie malnutrition (HCC) Every 3 months for 4 Occurrences starting 02/26/2025 until 02/26/2026 [facility] Comment on above: Every 3 months for 4 Occurrences startin g 02/26/2025 until 02/26/2026 Iron and Iron bindin g capacity panel - Serum or Plasma IRON AND TIBC Lab Routine Gastroesophageal reflux disease, unspecified whether esophagitis present Hypothyroidism, acquired Iron deficiency anemia, unspecified iron deficiency anemia type Nausea Vitamin D deficiency Vitamin B12 deficiency Fatigue, unspecified type Drug-induced Parkinson's disease (HCC) Irritable bowel syndrome with both constipation and diarrhea Severe protein-calorie malnutrition (HCC) 02/26/2025 11:26 AM EDT [facility] Leukocytes [#/volume ] in Blood [facility] Leukocytes [#/volume ] in Blood [facility] Leukocytes [#/volume ] in Blood [facility] Leukocytes [#/volume ] in Blood [facility] Magnesium [Mass/volu me] in Serum or Plasma [facility] Mean corpuscular hemoglobin concentration determination [facility] Mean corpuscular hemoglobin concentration determination [facility] Mean corpuscular hemoglobin concentration determination [facility] Mean corpuscular hemoglobin concentration determination [facility] Mean corpuscular hemoglobin determination [facility] Mean corpuscular hemoglobin determination [facility] Mean corpuscular hemoglobin determination [facility] Mean corpuscular hemoglobin determination [facility] Measurement of renal function [facility] Measurement of renal function [facility] Measurement of renal function [facility] Measurement of renal function [facility] Measurement of renal function [facility] Measurement of renal function [facility] Measurement of renal function [facility] Neutrophil count [facility] Neutrophil count [facility] Neutrophil count [facility] Neutrophil count [facility] Neutrophil percent differential count [facility] Neutrophil percent differential count [facility] Neutrophil percent differential count [facility] Neutrophil percent differential count [facility] Patient Education [facility] Work Phone: Patient referral [facility] Work Phone: Platelets [#/volume] in Blood [facility] Platelets [#/volume] in Blood [facility] Platelets [#/volume] in Blood [facility] Platelets [#/volume] in Blood [facility] Potassium [Moles/vol ume] in Serum or Plasma [facility] Potassium [Moles/vol ume] in Serum or Plasma [facility] Potassium [Moles/vol ume] in Serum or Plasma [facility] Potassium [Moles/vol ume] in Serum or Plasma [facility] Potassium [Moles/vol ume] in Serum or Plasma [facility] Potassium [Moles/vol ume] in Serum or Plasma [facility] Potassium [Moles/vol ume] in Serum or Plasma [facility] End: 08-20-2023 Radiologic exam abdomen 2 views XR ABDOMEN 2V ROUTINE SUPINE W UPRIGHT/DECUB/CTL Radiology Routine LLQ abdominal pain Partial small bowel obstruction (HCC) 1 Occurrences starting 07/21/2022 until 08/20/2023 [facility] Work Phone: Comment on above: 1 Occurrences starting 07/21/2022 until 08/20/2023 Radiologic exam abdo men 2 views XR ABDOMEN 2V ROUTINE SUPINE W UPRIGHT/DECUB/CTL Radiology Routine LLQ abdominal pain Partial small bowel obstruction (HCC) 07/21/2022 3:37 PM EDT [facility] Work Phone: Radiologic exam ches t 2 views XR CHEST 2V FRONTAL/LAT Radiology Routine Generalized weakness SOB (shortness of breath) CHAVARRIA (dyspnea on exertion) Fatigue, unspecified type 07/24/2023 3:39 PM EST [facility] Work Phone: End: 01-26-2023 Radiologic exam small int single contrast study XR SMALL BOWEL SERIES Radiology Routine History of small bowel obstruction Abdominal pain, unspecified abdominal location 1 Occurrences starting 12/27/2021 until 01/26/2023 [facility] Work Phone: Comment on above: 1 Occurrences starting 12/27/2021 until 01/26/2023 Red blood cell count [facility] Red blood cell count [facility] Red blood cell count [facility] Red blood cell count [facility] Red cell distributio n width determination [facility] Red cell distributio n width determination [facility] Red cell distributio n width determination [facility] Red cell distributio n width determination [facility] Respiratory pathogen s DNA and RNA panel - Respiratory specimen by RENATA with probe detection [facility] Serum inorganic phos phate measurement [facility] Sodium [Moles/volume ] in Serum or Plasma [facility] Sodium [Moles/volume ] in Serum or Plasma [facility] Sodium [Moles/volume ] in Serum or Plasma [facility] Sodium [Moles/volume ] in Serum or Plasma [facility] Sodium [Moles/volume ] in Serum or Plasma [facility] Sodium [Moles/volume ] in Serum or Plasma [facility] Sodium [Moles/volume ] in Serum or Plasma [facility] Urea nitrogen [Mass/volume] in Serum or Plasma [facility] Urea nitrogen [Mass/volume] in Serum or Plasma [facility] Urea nitrogen [Mass/volume] in Serum or Plasma [facility] Urea nitrogen [Mass/volume] in Serum or Plasma [facility] Urea nitrogen [Mass/volume] in Serum or Plasma [facility] Urea nitrogen [Mass/volume] in Serum or Plasma [facility] Urea nitrogen [Mass/volume] in Serum or Plasma [facility] End: 02-05-2023 Us abdominal real time w/image documentation US ABDOMEN COMPLETE Radiology Routine Generalized abdominal pain Elevated liver function tests 1 Occurrences starting 01/06/2022 until 02/05/2023 [facility] Work Phone: Comment on above: 1 Occurrences starting 01/06/2022 until 02/05/2023 End: 03-05-2026 US Carotid arteries - bilateral US CAROTID ARTERIES [facility] Lab Routine Vertigo 1 Occurrences starting 03/05/2025 until 03/05/2026 [facility] Work Phone: Comment on above: 1 Occurrences starting 03/05/2025 until 03/05/2026 [facility] Immunizations Immunization Date Immunization Notes Care Provider [facility] 07-27-2021 influenza virus vacc ine, unspecified formulation Kentrell Dhaliwal II, MD Work Phone: [facility] 07-27-2020 influenza, high-dose , quadrivalent vaccine (FLUZONE HIGH DOSE QUADRIVALENT) Jaswant Moseley MD Work Phone: [facility] Payers Date Payer Category Payer Self-pay 2021 Medicare (Managed Care) 1.2. [id number] 2021 Private Health Insurance [id number] 2020 Medicare HUMANA MEDICARE HU[employer]NA GOLD PLUS [id number] 2020-Present [phone] [address] [address] [place] [address] [facility] [id number] 2020 Medicare [id number] Unknown [id number] 2.16.840.1.210495.3.579. 2.283 Unknown [id number] 2.16.840.1.635677.3.579. 2.283 Unknown [id number] 2.16.840.1.668012.3.579. 2.283 Unknown [id number] 2.16.840.1.969849.3.579. 2.283 Unknown [id number] 2.16.840.1.783750.3.579. 2.283 Unknown [id number] 2.16.840.1.482603.3.579. 2.283 Unknown [id number] 2.16.840.1.221254.3.579. 2.283 Unknown [id number] 2.16.840.1.431005.3.579. 2.283 Unknown [id number] 2.16.840.1.871283.3.579. 2.283 Unknown [id number] 2.16.840.1.159168.3.579. 2.462 Unknown [id number] 2.16.840.1.649342.3.579. 2.462 Unknown [id number] 2.16.840.1.815513.3.579. 2.462 Unknown [id number] 2.16.840.1.803648.3.579. 2.462 Unknown [id number] 2.16.840.1.746897.3.579. 2.462 Unknown [id number] 2.16.840.1.996637.3.579. 2.462 Unknown [id number] 2.16.840.1.194061.3.579. 2.462 Unknown [id number] 2.16.840.1.234801.3.579. 2.462 Unknown [id number] 2.16.840.1.150724.3.579. 2.462 Unknown [id number] 2.16.840.1.815178.3.579. 2.462 Unknown [id number] 2.16.840.1.091259.3.579. 2.462 Unknown [id number] 2.16.840.1.400737.3.579. 2.462 Unknown [id number] 2.16.840.1.494861.3.579. 2.462 Unknown [id number] 2.16.840.1.292795.3.579. 2.462 Unknown [id number] 2.16.840.1.634964.3.579. 2.462 Unknown [id number] 2.16.840.1.470397.3.579. 2.462 Unknown [id number] 2.16.840.1.841216.3.579. 2.462 Unknown [id number] 2.16.840.1.242316.3.579. 2.462 Unknown [id number] 2.16.840.1.615073.3.579. 2.462 Unknown [id number] 2.16.840.1.644250.3.579. 2.462 Unknown [id number] 2.16.840.1.701558.3.579. 2.462 Unknown [id number] 2.16.840.1.430627.3.579. 2.462 Unknown [id number] 2.16.840.1.863392.3.579. 2.462 Social History Date Type Detail Facility Start: 06-22-2020 End: 07-21-2022 Tobacco smoking status MTIS Never smoked tobacco [facility] Start: 06-22-2020 End: 07-21-2022 Tobacco use and exposure Smokeless tobacco non-user [facility] Start: 08-30-2021 End: 03-15-2025 Alcohol intake Ex-drinker (finding) [facility] Start: 10-28-2020 History SDOH Housing Unable to Pay 3 [facility] Start: 10-28-2020 Education 16 [facility] Start: 1950 Sex Assigned At Not on file [facility] Start: 11-25-2021 End: 08-02-2022 Exposure to SARS-CoV-2 (event) Not sure [facility] Start: 12-11-2022 End: 12-13-2023 Tobacco smoking status NHIS Unknown if ever smoked [facility] Start: 1950 Sex Assigned At Female [facility] Start: 03-19-2023 History SDOH Financial 5 [facility] Start: 03-19-2023 History SDOH Food Worry 1 [facility] Start: 03-19-2023 History SDOH Transpo rt Med 2 [facility] Start: 10-28-2020 End: 06-11-2024 History of Social function [facility] Start: 10-28-2020 End: 06-11-2024 Social connection and isolation panel [facility] In a typical week, h ow many times do you talk on the telephone with family, friends, or neighbors? Patient refused [facility] Are you now , , , , never or living with a partner? Refused [facility] (I/We) worried wheth er (my/our) food would run out before (I/we) got money to buy more. Never true [facility] Work Phone: In the past 12 month s, was there a time when you were not able to pay the mortgage or rent on time? No [facility] Work Phone: (I/We) worried wheth er (my/our) food would run out before (I/we) got money to buy more. DK or Refused [facility] Goals Date Patient Goal Desired Activity /State Personal health goal Comment on above: Formatting of this n ote might be different from the original. Patient will adhere to drug regimen follow up with PCP and specialists to avoid rehospitalization , report any worsening symptoms. Comment on above: Formatting of this n ote might be different from the original. Patient will adhere to drug regimen follow up with PCP and specialists to avoid rehospitalization , report any worsening symptoms. Functional Status Date Assessment Result Facility 12-11-2023 Functional status Ambulates [facility] Work Phone: 04-05-2023 Are you deaf, or do you have serious difficulty hearing No 04/05/2023 10:00 AM Edgar Duckworth, DAVID No [facility] 04-05-2023 Are you blind, or do you have serious difficulty seeing, even when wearing glasses No 04/05/2023 10:00 AM Edgar Duckworth RN No [facility] 04-05-2023 Do you have serious difficulty walking or climbing stairs No 04/05/2023 10:00 AM Edgar Duckworth, DAVID No [facility] 04-05-2023 Do you have difficul ty dressing or bathing No 04/05/2023 10:00 AM Edgar Duckworth RN No [facility] 04-05-2023 Because of a physica l, mental, or emotional condition, do you have difficulty doing errands alone such as visiting a physician's office or shopping No 04/05/2023 10:00 AM Edgar Duckworth, DAVID No [facility] 03-18-2023 Functional status Ambulates;Bedrest [facility] Work Phone: Mental Status Date Assessment Result Facility 12-11-2023 Cognitive function Voice/Name [facility] Work Phone: 04-05-2023 Because of a physica l, mental, or emotional condition, do you have serious difficulty concentrating, remembering, or making decisions No 04/05/2023 10:00 AM Edgar Duckworth RN No [facility] 03-18-2023 Cognitive function Voice/Name [facility] Work Phone: Clinical Notes 06-22-2020 to 03-31-2025 Telephone Encounter - Husam Grant MA - 03/31/2025 10:33 AM EDTTelephone Encounter - Husam Grant MA - 03/31/2025 10:33 AM EDTJoKentrell gould II, MD - 03/15/2025 10:31 PM EDT Note Date & Type Note Facility 03-31-2025 Telephone encounter Note US showed <50 % stenosis to bilateral carotid arteries. Will continue to monitor this. Will repeat in 1 year. - Magdalene Salas Called patient and informed of magdalene message. Patient stated ok and thank you. Husam Grant MA [facility] 03-31-2025 Miscellaneous Notes US showed <50 % stenosis to bilateral carotid arteries. Will continue to monitor this. Will repeat in 1 year. - Magdalene Salas Called patient and informed of magdalene message. Patient stated ok and thank you. Husam Grant MA Patient called in regards US on her carotids. Patient is wondering what her results are? Please advise Husam Grant MA documented in this encounter [facility] 03-31-2025 Telephone encounter Note Patient will be out of medication on Sunday. Prescription Refill Information The patient has been identified by name and date of : Yes Caregiver verified no other encounters exist for this prescription request: Yes Caregiver confirmed with patient/requestor that no other refills are due, in the near future, with this provider at this time: Yes The last office visit in the department: 03/05/2025 Does the patient have a future office visit with this provider/department: Yes Requested Prescriptions Pending Prescriptions Disp Refills ALPRAZolam (XANAX) 1 mg tablet 60 tablet 0 Sig: Take 1 tablet by mouth every 12 hours as needed for up to 30 days. zolpidem (AMBIEN) 10 mg 30 tablet 2 Sig: Take 1 tablet by mouth at bedtime as needed for up to 90 days. Husam Grant MA March 31, 2025 9:17 AM [facility] 03-31-2025 Telephone encounter Note Patient called in regards US on her carotids. Patient is wondering what her results are? Please advise Husam Grant MA [facility] 03-31-2025 Miscellaneous Notes Patient will be out of medication on Sunday. Prescription Refill Information The patient has been identified by name and date of : Yes Caregiver verified no other encounters exist for this prescription request: Yes Caregiver confirmed with patient/requestor that no other refills are due, in the near future, with this provider at this time: Yes The last office visit in the department: 03/05/2025 Does the patient have a future office visit with this provider/department: Yes Requested Prescriptions Pending Prescriptions Disp Refills ALPRAZolam (XANAX) 1 mg tablet 60 tablet 0 Sig: Take 1 tablet by mouth every 12 hours as needed for up to 30 days. zolpidem (AMBIEN) 10 mg 30 tablet 2 Sig: Take 1 tablet by mouth at bedtime as needed for up to 90 days. Husam Grant MA March 31, 2025 9:17 AM documented in this encounter [facility] 03-15-2025 Note HNO ID: [id number] Author: KENTRELL DHALIWAL II, MD Service: ? Author Type: Physician Type: Progress Notes Filed: 03/15/2025 22:37 Note Text: Kentrell Dhaliwal II, MD [place] [id number] NOEMI Escobar is a 74 year old female who presents with Palpitations (Patient stated that her first spell was back in January. Patient stated she starts to sweat and gets faint. Patient stated she was on vacation and it occurred again but worse. Patient stated that the third time it occurred she was doing laundry. ), Weakness (Patient stated in the last 6 weeks she as gotten weaker and having trouble keeping up with doing her normal routine ), Fatigue, Shortness of Breath, and Refill Request (Xanax /Both inhalers ). HPI Patient is in today to follow-up chronic problems discussed a few different issues. She states that she has had some general malaise over the last 1 to 2 months and she has noticed that she has had occasional palpitations. She has had a couple episodes where she starts to get sweaty and feels faint like she might pass out. She has not passed out with an episode but feels that way and it lasts a few minutes until it passes and she returns to normal. She states overall she feels like her exercise tolerance has gotten a little less and she is in general been more fatigued and is tending to get short of breath easier. She is not having chest discomfort which she is having palpitations Review of Systems Constitutional: Negative for activity change, appetite change, chills, diaphoresis, fatigue, fever and unexpected weight change. HENT: Negative for congestion, dental problem, ear pain, hearing loss, nosebleeds, postnasal drip, rhinorrhea, sinus pressure, sinus pain, sore throat, trouble swallowing and voice change. Eyes: Negative for discharge, redness and visual disturbance. Respiratory: Negative for apnea, cough, choking, chest tightness, shortness of breath, wheezing and stridor. Cardiovascular: Negative for chest pain, palpitations and leg swelling. Gastrointestinal: Negative for abdominal distention, abdominal pain, blood in stool, constipation, diarrhea, nausea and vomiting. Endocrine: Negative for cold intolerance, heat intolerance, polydipsia, polyphagia and polyuria. Genitourinary: Negative for decreased urine volume, difficulty urinating, dysuria, enuresis, frequency, hematuria and urgency. Musculoskeletal: Negative for arthralgias, gait problem and myalgias. Skin: Negative for color change, pallor, rash and wound. Allergic/Immunologic: Negative for environmental allergies. Neurological: Negative for dizziness, tremors, syncope, facial asymmetry, speech difficulty, weakness, light-headedness, numbness and headaches. Hematological: Negative for adenopathy. Does not bruise/bleed easily. Psychiatric/Behavioral: Negative for agitation, behavioral problems, confusion, decreased concentration, dysphoric mood, hallucinations, self-injury, sleep disturbance and suicidal ideas. The patient is not nervous/anxious and is not hyperactive. PAST MEDICAL HISTORY Diagnosis Date - Anxiety and depression - Diabetes (HCC) - Drug-induced Parkinson's disease (HCC) - GERD (gastroesophageal reflux disease) - History of DVT (deep vein thrombosis) - IBS (irritable bowel syndrome) - Seizures (HCC) - Small bowel obstruction (HCC) - Tremor PAST SURGICAL HISTORY Procedure Laterality Date - CHOLECYSTECTOMY HX - COLON SURGERY HX - HYSTERECTOMY HX - ROTATOR CUFF REPAIR Left - TONSILLECTOMY HX - TOOTH EXTRACTION Bilateral 2023 multiple teeth extracted - WRIST SURGERY HX Right Social History Tobacco Use - Smoking status: Never - Smokeless tobacco: Never Vaping Use - Vaping status: Never Used Substance Use Topics - Alcohol use: Not Currently - Drug use: Never FAMILY HISTORY Problem Relation Age of Onset - Emphysema Mother - Heart disease Father The ROS, medical, surgical, family, and social history were reviewed by Kentrell Dhaliwal II, MD ALLERGIES Allergen Reactions - Latex Anaphylaxis - Abilify [Aripiprazo* Other: See Comments Muscles couldn't get up - Codeine Diarrhea - Compazine [Prochlor* Myalgia - Levaquin [Levofloxa* Diarrhea - Omnicef [Cefdinir] Diarrhea - Prednisone GI Upset - Propoxyphene Unknown - Zhshedm-Aal-Fyi Red* Diarrhea, Intolerance - Sulfa (Sulfonamide * Other: See Comments Leg pain - Shellfish Containin* Swelling Current Outpatient Medications Medication Sig - busPIRone (BUSPAR) 15 mg tablet Take 1 tablet by mouth two times a day. - nabumetone (RELAFEN) 750 mg tablet Take 1 tablet by mouth every 12 hours as needed for pain. - furosemide (LASIX) 40 mg tablet Take 1 tablet by mouth once daily. - zolpidem (AMBIEN) 10 mg Take 1 tablet by mouth at bedtime as needed for up to 90 days. - levothyroxine (SYNTHROID) 50 mcg tablet Take 1 tablet by mouth once d (more content not included)... [facility] 03-15-2025 History of Presen t illness Narrative Images from the original note were not included. Kentrell Dhaliwal II, [place] [address] SUBJECTIVE Kaitlyn Escobar is a 74 year old female who presents with Palpitations (Patient stated that her first spell was back in January. Patient stated she starts to sweat and gets faint. Patient stated she was on vacation and it occurred again but worse. Patient stated that the third time it occurred she was doing laundry. ), Weakness (Patient stated in the last 6 weeks she as gotten weaker and having trouble keeping up with doing her normal routine ), Fatigue, Shortness of Breath, and Refill Request (Xanax /Both inhalers ). HPI Patient is in today to follow-up chronic problems discussed a few different issues. She states that she has had some general malaise over the last 1 to 2 months and she has noticed that she has had occasional palpitations. She has had a couple episodes where she starts to get sweaty and feels faint like she might pass out. She has not passed out with an episode but feels that way and it lasts a few minutes until it passes and she returns to normal. She states overall she feels like her exercise tolerance has gotten a little less and she is in general been more fatigued and is tending to get short of breath easier. She is not having chest discomfort which she is having palpitations Review of Systems Constitutional: Negative for activity change, appetite change, chills, diaphoresis, fatigue, fever and unexpected weight change. HENT: Negative for congestion, dental problem, ear pain, hearing loss, nosebleeds, postnasal drip, rhinorrhea, sinus pressure, sinus pain, sore throat, trouble swallowing and voice change. Eyes: Negative for discharge, redness and visual disturbance. Respiratory: Negative for apnea, cough, choking, chest tightness, shortness of breath, wheezing and stridor. Cardiovascular: Negative for chest pain, palpitations and leg swelling. Gastrointestinal: Negative for abdominal distention, abdominal pain, blood in stool, constipation, diarrhea, nausea and vomiting. Endocrine: Negative for cold intolerance, heat intolerance, polydipsia, polyphagia and polyuria. Genitourinary: Negative for decreased urine volume, difficulty urinating, dysuria, enuresis, frequency, hematuria and urgency. Musculoskeletal: Negative for arthralgias, gait problem and myalgias. Skin: Negative for color change, pallor, rash and wound. Allergic/Immunologic: Negative for environmental allergies. Neurological: Negative for dizziness, tremors, syncope, facial asymmetry, speech difficulty, weakness, light-headedness, numbness and headaches. Hematological: Negative for adenopathy. Does not bruise/bleed easily. Psychiatric/Behavioral: Negative for agitation, behavioral problems, confusion, decreased concentration, dysphoric mood, hallucinations, self-injury, sleep disturbance and suicidal ideas. The patient is not nervous/anxious and is not hyperactive. PAST MEDICAL HISTORY Diagnosis Date Anxiety and depression Diabetes (HCC) Drug-induced Parkinson's disease (HCC) GERD (gastroesophageal reflux disease) History of DVT (deep vein thrombosis) IBS (irritable bowel syndrome) Seizures (HCC) Small bowel obstruction (HCC) Tremor PAST SURGICAL HISTORY Procedure Laterality Date CHOLECYSTECTOMY HX COLON SURGERY HX HYSTERECTOMY HX ROTATOR CUFF REPAIR Left TONSILLECTOMY HX TOOTH EXTRACTION Bilateral 2023 multiple teeth extracted WRIST SURGERY HX Right Social History Tobacco Use Smoking status: Never Smokeless tobacco: Never Vaping Use Vaping status: Never Used Substance Use Topics Alcohol use: Not Currently Drug use: Never FAMILY HISTORY Problem Relation Age of Onset Emphysema Mother Heart disease Father The ROS, medical, surgical, family, and social history were reviewed by Kentrell Dhaliwal II, MD ALLERGIES Allergen Reactions Latex Anaphylaxis Abilify [Aripiprazo* Other: See Comments Muscles couldn't get up Codeine Diarrhea Compazine [Prochlor* Myalgia Levaquin [Levofloxa* Diarrhea Omnicef [Cefdinir] Diarrhea Prednisone GI Upset Propoxyphene Unknown Stvqctz-Yih-Vyg Red* Diarrhea, Intolerance Sulfa (Sulfonamide * Other: See Comments Leg pain Shellfish Containin* Swelling Current Outpatient Medications Medication Sig busPIRone (BUSPAR) 15 mg tablet Take 1 tablet by mouth two times a day. nabumetone (RELAFEN) 750 mg tablet Take 1 tablet by mouth every 12 hours as needed for pain. furosemide (LASIX) 40 mg tablet Take 1 tablet by mouth once daily. zolpidem (AMBIEN) 10 mg Take 1 tablet by mouth at bedtime as needed for up to 90 days. levothyroxine (SYNTHROID) 50 mcg tablet Take 1 tablet by mouth once daily. ezetimibe (ZETIA) 10 mg tablet Take 1 tablet by mouth once daily. rOPINIRole (REQUIP) 0.5 mg tablet Take 1 tablet by mouth two times a day. promethazine (PHENERGAN) 25 mg tablet Take 1 tablet by mouth every 6 hours as needed. clotrimazole-betamethasone (LOTRISONE) cream Apply to affected area two times a day. omeprazole (PRILOSEC) 40 mg capsule Take 1 capsule by mouth two times a day. polyethylene glycol 3350 17 gram packet Take 17 g by mouth two times a day. Dissolve dose in 4 - 8 ounces of liquid and take as directed. warfarin (COUMADIN) 5 mg tablet Take 1 tablet by mouth once daily. citalopram (CELEXA) 20 mg tablet Take 1 tablet by mouth once daily. simethicone 250 mg cap Take 1 capsule by mouth three times a day. hyoscyamine SR (LEVBID) 0.375 mg 12 hr tablet Take 1 tablet by mouth two times a day. (Patient taking differently: Take 10 mg by mouth two times a day as needed for diarrhea.) ondansetron (ZOFRAN) 4 mg tablet Take 1 tablet by mouth every 6 hours as needed. cyclobenzaprine (FLEXERIL) 10 mg tablet Take 1 tablet by mouth three times daily as needed. docusate sodium (COLACE) 100 mg capsule Take 1 capsule by mouth twice daily. SF 5000 PLUS 1.1 % dental cream albuterol HFA (PROVENTIL HFA, VENTOLIN HFA) 90 mcg/actuation inhaler Inhale 2 puffs as instructed every 6 hours as needed for wheezing/shortness of breath. ALPRAZolam (XANAX) 1 mg tablet Take 1 tablet by mouth every 12 hours as needed for up to 30 days. No current facility-administered medications for this visit. OBJECTIVE BP 122/70 (BP Site: Right Arm, BP Position: Sitting) Pulse 72 Temp 36.4 C (97.5 F) Resp 14 Ht 154.9 cm (5' 1) Wt 65.3 kg (144 lb) SpO2 94% BMI 27.21 kg/m BMI 27.21 kg/(m^2) Physical Exam Vitals and nursing note reviewed. Constitutional: General: She is not in acute distress. Appearance: Normal appearance. She is not ill-appearing, toxic-appearing or diaphoretic. HENT: Head: Normocephalic and atraumatic. Right Ear: Tympanic membrane, ear canal and external ear normal. There is no impacted cerumen. Left Ear: Tympanic membrane, ear canal and external ear normal. There is no impacted cerumen. Nose: Nose normal. No congestion or rhinorrhea. Mouth/Throat: Mouth: Mucous membranes are moist. Pharynx: Oropharynx is clear. No oropharyngeal exudate or posterior oropharyngeal erythema. Eyes: General: No scleral icterus. Right eye: No discharge. Left eye: No discharge. Extraocular Movements: Extraocular movements intact. Conjunctiva/sclera: Conjunctivae normal. Pupils: Pupils are equal, round, and reactive to light. Neck: Vascular: No carotid bruit. Cardiovascular: Rate and Rhythm: Normal rate and regular rhythm. Pulses: Normal pulses. Heart sounds: Normal heart sounds. No murmur heard. No friction rub. No gallop. Pulmonary: Effort: Pulmonary effort is normal. No respiratory distress. Breath sounds: Normal breath sounds. No stridor. No wheezing, rhonchi or rales. Chest: Chest wall: No tenderness. Abdominal: General: Abdomen is flat. Bowel sounds are normal. There is no distension. Palpations: Abdomen is soft. There is no mass. Tenderness: There is no abdominal tenderness. There is no right CVA tenderness, left CVA tenderness, guarding or rebound. Hernia: No hernia is present. Musculoskeletal: General: No signs of injury. Cervical back: Normal range of motion and neck supple. No rigidity or tenderness. Comments: Grossly, her neurovascular, ROM and strength without significant changes from previous examinations and consistent with patient history. She is not having any increased tremor or gait abnormality or any other neurological signs and would indicate that her Parkinson's is worsening. Lymphadenopathy: Cervical: No cervical adenopathy. Skin: General: Skin is warm and dry. Capillary Refill: Capillary refill takes less than 2 seconds. Coloration: Skin is not jaundiced or pale. Findings: No erythema, lesion or rash. Neurological: General: No focal deficit present. Mental Status: She is alert and oriented to person, place, and time. Mental status is at baseline. Cranial Nerves: No cranial nerve deficit. Sensory: No sensory deficit. Motor: No weakness. Coordination: Coordination normal. Gait: Gait normal. Deep Tendon Reflexes: Reflexes normal. Psychiatric: Mood and Affect: Mood normal. Behavior: Behavior normal. Thought Content: Thought content normal. Judgment: Judgment normal. Labs: Hemoglobin (g/dL) Date Value 02/26/2025 12.4 11/23/2022 11.6 Hematocrit (%) Date Value 02/26/2025 36.9 11/23/2022 35.1 WBC Date Value 02/26/2025 6.89 k/uL 11/23/2022 7.8 x10(3) Platelet Count Date Value 02/26/2025 193 k/uL 11/23/2022 391 X10(3) Creatinine Date Value Ref Range Status 02/26/2025 1.19 (H) 0.58 - 0.96 mg/dL Final AST Date Value Ref Range Status 06/11/2024 27 13 - 35 U/L Final ALT Date Value Ref Range Status 06/11/2024 20 7 - 38 U/L Final Blood Culture (no units) Date Value 11/12/2021 XXX 11/12/2021 XXX Bilirubin, Total (mg/dL) Date Value 06/11/2024 0.3 Bilirubin, Direct (mg/dL) Date Value 06/11/2024 <0.2 Antibody Screen (no units) Date Value 04/01/2023 Negative WBC (k/uL) Date Value 02/26/2025 6.89 RBC (m/uL) Date Value 02/26/2025 4.21 %DIG,%DBS Plan ASSESSMENT/PLAN: 1. Vertigo - ICD9: 780.4, ICD10: R42 (primary diagnosis) We did review her recent blood work which was in acceptable ranges. We are going to check an ultrasound of bilateral carotids and call with results recommendations when available. - US CAROTID ARTERIES [facility] - PERFLUTREN LIPID MICROSPHERES 1.1 MG/ML INJECTION IN NS 10 ML 2. Anxiety and depression - ICD9: 300.00, 311, ICD10: F41.9, F32.A Clinically stable. Continue same medication and treatment. Follow up in 3 to 6 months or sooner if needed. - ALPRAZOLAM 1 MG TABLET 3. CHAVARRIA (dyspnea on exertion) - ICD9: 786.09, ICD10: R06.09 She is going to continue her metered-dose inhalers and we will also check a 2D echocardiogram for further evaluation. Will call with results and recommendations when the test results are available. - ECHO - PERFLUTREN LIPID MICROSPHERES 1.1 MG/ML INJECTION IN NS 10 ML - SODIUM CHLORIDE 0.9 % (FLUSH) INJECTION SYRINGE 4. Palpitations - ICD9: 785.1, ICD10: R00.2 See #3 - ECHO - PERFLUTREN LIPID MICROSPHERES 1.1 MG/ML INJECTION IN NS 10 ML - SODIUM CHLORIDE 0.9 % (FLUSH) INJECTION SYRINGE 5. Gastroesophageal reflux disease, unspecified whether esophagitis present - ICD9: 530.81, ICD10: K21.9 Clinically stable. Continue same medication and treatment. Follow up in 3 to 6 months or sooner if needed. 6. Hypothyroidism, acquired - ICD9: 244.9, ICD10: E03.9 - Instructed patient on importance of taking on an empty stomach either first thing in the morning or at bedtime. - check TSH in 3 months and in 6 months - continue current dose of Synthroid - Follow up in 6 months 7. Iron deficiency anemia, unspecified iron deficiency anemia type - ICD9: 280.9, ICD10: D50.9 Clinically stable. Continue same medication and treatment. Follow up in 3 to 6 months or sooner if needed. 8. Drug-induced Parkinson's disease (HCC) - ICD9: 332.1, E980.5, ICD10: G21.19 The description of her current compared to chronic symptoms would indicate she is clinically stable. Continue same medication and treatment. Follow up in 3 to 6 months or sooner if needed. 9. Irritable bowel syndrome with both constipation and diarrhea - ICD9: 564.1, ICD10: K58.2 Clinically stable. Continue same medication and treatment. Follow up in 3 to 6 months or sooner if needed. Kentrell Dhaliwal II, MD Follow up: No follow-ups on file. Kentrell Dhaliwal II, M.D. documented in this encounter [facility] 03-13-2025 Note HNO ID: [id number] Author: ?, ?, ? Service: ? Author Type: ? Type: Progress Notes Filed: 03/13/2025 10:28 Note Text: POPULATION HEALTH NAVIGATION OUTREACH Action/FYI Patient needs 2024 Wellness, Mammogram, Colon screening, REGAN, A1C, KED; Care Gaps noted on upcoming appointment with primary care provider; Has HCC Gaps. Outcome: Left Voicemail; Does not have MyChart Reason for Outreach Care Gap/HCC or Scheduling Wellness Visits Care Gaps due: Medicare Annual Wellness Visit Breast Cancer Screening Colorectal Cancer Screening Diabetic Eye Exam HBA1C KED Patient Contacted: Unable or unnecessary to reach patient: Left message HCC related Updated appointment notes Navigation Signature: Ann Marie DING March 13, 2025 10:23 AM [facility] 03-13-2025 History of Presen t illness Narrative POPULATION HEALTH NAVIGATION OUTREACH Action/FYI Patient needs 2024 Wellness, Mammogram, Colon screening, REGAN, A1C, KED; Care Gaps noted on upcoming appointment with primary care provider; Has HCC Gaps. Outcome: Left Voicemail; Does not have MyChart Reason for Outreach Care Gap/HCC or Scheduling Wellness Visits Care Gaps due: Medicare Annual Wellness Visit Breast Cancer Screening Colorectal Cancer Screening Diabetic Eye Exam HBA1C KED Patient Contacted: Unable or unnecessary to reach patient: Left message HCC related Updated appointment notes Navigation Signature: Ann Marie DING March 13, 2025 10:23 AM documented in this encounter [facility] 03-13-2025 Note Patient Outreach (NE TNAV) KAITLYN ESCOBAR I ([id number]) 1950 F Date Time Provider Department 03/13/25 ANN MARIE FERREIRA During your visit today, we recorded the following information about you: Ann Marie Cardona 03/13/2025 10:28 AM Signed POPULATION HEALTH NAVIGATION OUTREACH Action/FYI Patient needs 2024 Wellness, Mammogram, Colon screening, REGAN, A1C, KED; Care Gaps noted on upcoming appointment with primary care provider; Has HCC Gaps. Outcome: Left Voicemail; Does not have MyChart Reason for Outreach Care Gap/HCC or Scheduling Wellness Visits Care Gaps due: Medicare Annual Wellness Visit Breast Cancer Screening Colorectal Cancer Screening Diabetic Eye Exam HBA1C KED Patient Contacted: Unable or unnecessary to reach patient: Left message HCC related Updated appointment notes Navigation Signature: Ann Marie Ferreira NRA March 13, 2025 10:23 AM Allergies As of Date: 03/13/2025 Noted Allergy Reaction LATEX 06/22/2020 10 - Anaphylaxis ABILIFY (ARIPIPRAZOLE) 04/19/2022 14 - Other: See Comments Comments: Muscles couldn't get up CODEINE 06/22/2020 6 - Diarrhea COMPAZINE (PROCHLORPERAZINE) 06/22/2020 17 - Myalgia LEVAQUIN (LEVOFLOXACIN) 06/22/2020 6 - Diarrhea OMNICEF (CEFDINIR) 06/22/2020 6 - Diarrhea PREDNISONE 08/30/2021 8 - GI Upset PROPOXYPHENE 06/23/2015 16 - Unknown [id number] REDUCTASE INHIBIT*06/22/2020 6 - Diarrhea 5 - Intolerance SULFA (SULFONAMIDE ANTIBIOTICS) 06/15/2020 14 - Other: See Comments Comments: Leg pain SHELLFISH CONTAINING PRODUCTS 11/29/2012 7 - Swelling Date Reviewed: 03/05/2025 Reviewed by: Husam Grant MA - Fully Assessed Reason for Visit: Population Health Navigation Outreach [3910] Cmt: [facility] Workbench Prescriptions as of 03/13/2025 - albuterol HFA (PROVENTIL HFA, VENTOLIN HFA) 90 mcg/actuation inhaler Inhale 2 puffs as instructed every 6 hours as needed for wheezing/shortness of breath. - ALPRAZolam (XANAX) 1 mg tablet Take 1 tablet by mouth every 12 hours as needed for up to 30 days. - busPIRone (BUSPAR) 15 mg tablet Take 1 tablet by mouth two times a day. - nabumetone (RELAFEN) 750 mg tablet Take 1 tablet by mouth every 12 hours as needed for pain. - furosemide (LASIX) 40 mg tablet Take 1 tablet by mouth once daily. - zolpidem (AMBIEN) 10 mg Take 1 tablet by mouth at bedtime as needed for up to 90 days. - levothyroxine (SYNTHROID) 50 mcg tablet Take 1 tablet by mouth once daily. - ezetimibe (ZETIA) 10 mg tablet Take 1 tablet by mouth once daily. - rOPINIRole (REQUIP) 0.5 mg tablet Take 1 tablet by mouth two times a day. - promethazine (PHENERGAN) 25 mg tablet Take 1 tablet by mouth every 6 hours as needed. - clotrimazole-betamethasone (LOTRISONE) cream Apply to affected area two times a day. - omeprazole (PRILOSEC) 40 mg capsule Take 1 capsule by mouth two times a day. - polyethylene glycol 3350 17 gram packet Take 17 g by mouth two times a day. Dissolve dose in 4 - 8 ounces of liquid and take as directed. - warfarin (COUMADIN) 5 mg tablet Take 1 tablet by mouth once daily. - citalopram (CELEXA) 20 mg tablet Take 1 tablet by mouth once daily. - simethicone 250 mg cap Take 1 capsule by mouth three times a day. - hyoscyamine SR (LEVBID) 0.375 mg 12 hr tablet Take 1 tablet by mouth two times a day. - ondansetron (ZOFRAN) 4 mg tablet Take 1 tablet by mouth every 6 hours as needed. - cyclobenzaprine (FLEXERIL) 10 mg tablet Take 1 tablet by mouth three times daily as needed. - docusate sodium (COLACE) 100 mg capsule Take 1 capsule by mouth twice daily. - SF 5000 PLUS 1.1 % dental cream Problem List As Of Date 03/13/2025 Noted Resolved Parkinson's disease (HCC) [G20.A1] 06/22/2020 04/17/2022 Irritable bowel syndrome with both constipation*06/22/2020 Subclinical hypothyroidism [E03.8] 06/22/2020 History of DVT (deep vein thrombosis) [Z86.718] 06/22/2020 Prediabetes [R73.03] 06/22/2020 GERD without esophagitis [K21.9] 06/22/2020 04/17/2022 Mild episode of recurrent major depressive diso*06/22/2020 MOODY (generalized anxiety disorder) [F41.1] 06/22/2020 Chronic insomnia [F51.04] 06/22/2020 GERD (gastroesophageal reflux disease) [K21.9] Drug-induced Parkinson's disease (HCC) [G21.19] Diabetes (HCC) [E11.9] Anxiety and depression [F41.9, F32.A] Hypothyroidism, acquired [E03.9] 08/30/2021 Small bowel obstruction (HCC) [K56.609] 03/18/2023 03/20/2023 Severe protein-calorie malnutrition (HCC) [E43] 03/19/2023 SBO (small bowel obstruction) (HCC) [K56.609] 04/01/2023 04/05/2023 Encounter Status:Closed by ANN MARIE CARDONA on 03/13/25 [facility] 03-03-2025 Telephone encounter Note Prescription Refill Information The patient has been identified by name and date of : Yes Caregiver verified no other encounters exist for this prescription request: Yes Caregiver confirmed with patient/requestor that no other refills are due, in the near future, with this provider at this time: Yes The last office visit in the department: [id number] Does the patient have a future office visit with this provider/department: Yes Requested Prescriptions Pending Prescriptions Disp Refills busPIRone (BUSPAR) 15 mg tablet 30 tablet 5 Sig: Take 0.5 tablets by mouth two times a day. Charity Wise March 03, 2025 9:04 AM [facility] 03-03-2025 Miscellaneous Notes Prescription Refill Information The patient has been identified by name and date of : Yes Caregiver verified no other encounters exist for this prescription request: Yes Caregiver confirmed with patient/requestor that no other refills are due, in the near future, with this provider at this time: Yes The last office visit in the department: [id number] Does the patient have a future office visit with this provider/department: Yes Requested Prescriptions Pending Prescriptions Disp Refills busPIRone (BUSPAR) 15 mg tablet 30 tablet 5 Sig: Take 0.5 tablets by mouth two times a day. Charity Wise March 03, 2025 9:04 AM documented in this encounter [facility] 03-02-2025 Telephone encounter Note Scheduled patient for 03/05/2025 at [address] [place] per [address] Isra Grant MA [facility] 03-02-2025 Miscellaneous Notes Scheduled patient for 03/05/2025 [place] [address] [place] per [address] Isra Grant MA Called patient however no answer. Left message informing patient to call office back. Patient can be scheduled on 03/05/2025 at 1120, 1300, or 1600. Also forwarding message to Dr Dhaliwal to see what he would like to do. See encounter from [facility]. What does Dr Dhaliwal want to do? Please advise Husam Grant MA Dr. Dhaliwal has no open appointments. Reason for Disposition Taking water pill (i.e., diuretic) or heart medication (e.g., digoxin) Taking Lasix Answer Assessment - Initial Assessment Questions 1. DESCRIPTION: Please describe your heart rate or heartbeat that you are having (e.g., fast/slow, regular/irregular, skipped or extra beats, palpitations) Palpitations 2. ONSET: When did it start? (e.g., minutes, hours, days) A month ago 3. DURATION: How long does it last (e.g., seconds, minutes, hours) 15 minutes 4. PATTERN Does it come and go, or has it been constant since it started? Does it get worse with exertion? Are you feeling it now? Comes and goes. 3 episodes total 5. TAP: Using your hand, can you tap out what you are feeling on a chair or table in front of you, so that I can hear? Note: Not all patients can do this. N/A 6. HEART RATE: Can you tell me your heart rate? How many beats in 15 seconds? Note: Not all patients can do this. Unsure of current HR. Not currently experiencing it. 7. RECURRENT SYMPTOM: Have you ever had this before? If Yes, ask: When was the last time? and What happened that time? Last episode occurred a week ago. Has not happened piror to this last month. 8. CAUSE: What do you think is causing the palpitations? Unsure 9. CARDIAC HISTORY: Do you have any history of heart disease? (e.g., heart attack, angina, bypass surgery, angioplasty, arrhythmia) No 10. OTHER SYMPTOMS: Do you have any other symptoms? (e.g., dizziness, chest pain, sweating, difficulty breathing) When episodes occur she does have sweating, weakness, and dizziness. Currently no symptoms 11. : Is there any chance you are ? When was your last menstrual period? No Protocols used: Heart Rate and Heartbeat [id number] Patient calls the office today and states that she has had three episodes of her heart racing and breaks out in a sweat and gets dizzy. She sits down and it goes away. The second time she was doing nothing and it happened. The third time was last week. Please advise Thank you [phone] Sent to our [facility] nurse pool documented in this encounter [facility] 03-02-2025 Telephone encounter Note Called patient however no answer. Left message informing patient to call office back. Patient can be scheduled on 03/05/2025 at 1120, 1300, or 1600. Also forwarding message to Dr Dhaliwal to see what he would like to do. See encounter from [facility]. What does Dr Dhaliwal want to do? Please advise Husam Grant MA [facility] 03-02-[address] Dhaliwal has no open appointments. T [facility] 03-02-2025 Telephone encounter Note Reason for Disposition Taking water pill (i.e., diuretic) or heart medication (e.g., digoxin) Taking Lasix Answer Assessment - Initial Assessment Questions 1. DESCRIPTION: Please describe your heart rate or heartbeat that you are having (e.g., fast/slow, regular/irregular, skipped or extra beats, palpitations) Palpitations 2. ONSET: When did it start? (e.g., minutes, hours, days) A month ago 3. DURATION: How long does it last (e.g., seconds, minutes, hours) 15 minutes 4. PATTERN Does it come and go, or has it been constant since it started? Does it get worse with exertion? Are you feeling it now? Comes and goes. 3 episodes total 5. TAP: Using your hand, can you tap out what you are feeling on a chair or table in front of you, so that I can hear? Note: Not all patients can do this. N/A 6. HEART RATE: Can you tell me your heart rate? How many beats in 15 seconds? Note: Not all patients can do this. Unsure of current HR. Not currently experiencing it. 7. RECURRENT SYMPTOM: Have you ever had this before? If Yes, ask: When was the last time? and What happened that time? Last episode occurred a week ago. Has not happened piror to this last month. 8. CAUSE: What do you think is causing the palpitations? Unsure 9. CARDIAC HISTORY: Do you have any history of heart disease? (e.g., heart attack, angina, bypass surgery, angioplasty, arrhythmia) No 10. OTHER SYMPTOMS: Do you have any other symptoms? (e.g., dizziness, chest pain, sweating, difficulty breathing) When episodes occur she does have sweating, weakness, and dizziness. Currently no symptoms 11. : Is there any chance you are ? When was your last menstrual period? No Protocols used: Heart Rate and Heartbeat [id number] [facility] 03-02-2025 Telephone encounter Note Patient calls the office today and states that she has had three episodes of her heart racing and breaks out in a sweat and gets dizzy. She sits down and it goes away. The second time she was doing nothing and it happened. The third time was last week. Please advise Thank you [phone] Sent to our [facility] nurse pool [facility] Work Phone: 03-02-2025 Telephone encounter Note Patient calls today. Reason for Call: results Patient calls the office and asks that we call her back regarding her test results. Also, she discussed with Dr Dhaliwal about upping her buspar. At the time, she wasn't interested in doing so, but now she would like it increased to [address] Dhaliwal to do so. She also needs a refill on her xanax. Please advise Thank you [phone] (home) [phone] (cell) Patient last appointment: 09/26/2024 Jasmin Garza [facility] Work Phone: 03-02-2025 Miscellaneous Notes Patient calls today. Reason for Call: results Patient calls the office and asks that we call her back regarding her test results. Also, she discussed with Dr Dhaliwal about upping her buspar. At the time, she wasn't interested in doing so, but now she would like it increased to [address] Dhaliwal to do so. She also needs a refill on her xanax. Please advise Thank you [phone] (home) [phone] (cell) Patient last appointment: 09/26/2024 Jasmin Garza documented in this encounter [facility] 02-27-2025 Telephone encounter Note ----- Message from Kentrell Dhaliwal MD sent at 02/26/2025 11:12 PM EDT ----- Labs are acceptable ranges without significant abnormality that would likely cause the symptoms she is having.. [facility] 02-27-2025 Miscellaneous Notes ----- Message from Kentrell Dhaliwal MD sent at 02/26/2025 11:12 PM EDT ----- Labs are acceptable ranges without significant abnormality that would likely cause the symptoms she is having.. documented in this encounter [facility] 02-26-2025 Telephone encounter Note Patient returned call to the office and states that she will go to an urgent care closer to her. Also thanked Dr Dhaliwal for putting the order in and will go to a [facility] facility for blood work Thank you [facility] Work Phone: 02-26-2025 Miscellaneous Notes Patient returned call to the office and states that she will go to an urgent care closer to her. Also thanked Dr Dhaliwal for putting the order in and will go to a [facility] facility for blood work Thank you Left message on voicemail for patient to return our call. Phone number provided. She should go wherever is most convenient for her I can print an order for labs if she wants to go to a [facility] facility Spoke with patient offered her the Walk in Clinic & gave her the hours She is not in pain she is just exhausted, she did go on an 8 day trip but got back a week ago & is still so tired. Patient said that she is wonder if Dr. Dhaliwal would be okay with going to an urgent care closer to home since she lives in [place]! Patient called and would like to know if you can work her in for fatigue? She didn't know if she needs her iron or labs done to see why she's exhausted all of the time. She also said she get short winded. Please advise. Thank you. Patient last appointment:09/26/2024 (home) [phone] (cell) Lelia Cast documented in this encounter [facility] 02-26-2025 Telephone encounter Note Left message on voicemail for patient to return our call. Phone number provided. [facility] 02-26-2025 Telephone encounter Note She should go wherever is most convenient for her I can print an order for labs if she wants to go to a [facility] facility [facility] 02-26-2025 Telephone encounter Note Spoke with patient offered her the Walk in Clinic & gave her the hours She is not in pain she is just exhausted, she did go on an 8 day trip but got back a week ago & is still so tired. Patient said that she is wonder if Dr. Dhaliwal would be okay with going to an urgent care closer to home since she lives in [place]! [facility] 06-12-2025 Telephone encounter Note Patient called and would like to know if you can work her in for fatigue? She didn't know if she needs her iron or labs done to see why she's exhausted all of the time. She also said she get short winded. Please advise. Thank you. Patient last appointment:09/26/2024 (home) [phone] (cell) Lelia Cast [facility] Work Phone: 02-18-2025 Telephone encounter Note Prescription Refill Information The patient has been identified by name and date of : Yes Caregiver verified no other encounters exist for this prescription request: Yes Caregiver confirmed with patient/requestor that no other refills are due, in the near future, with this provider at this time: No The last office visit in the department: 01/08/2025 Does the patient have a future office visit with this provider/department: Yes Requested Prescriptions Pending Prescriptions Disp Refills nabumetone (RELAFEN) 750 mg tablet [Pharmacy Med Name: nabumetone 750 mg tablet] 28 tablet 3 Sig: Take 1 tablet by mouth every 12 hours as needed for pain. Jayleen Dykes MA February 18, 2025 10:20 AM [facility] 02-18-2025 Miscellaneous Notes Prescription Refill Information The patient has been identified by name and date of : Yes Caregiver verified no other encounters exist for this prescription request: Yes Caregiver confirmed with patient/requestor that no other refills are due, in the near future, with this provider at this time: No The last office visit in the department: 01/08/2025 Does the patient have a future office visit with this provider/department: Yes Requested Prescriptions Pending Prescriptions Disp Refills nabumetone (RELAFEN) 750 mg tablet [Pharmacy Med Name: nabumetone 750 mg tablet] 28 tablet 3 Sig: Take 1 tablet by mouth every 12 hours as needed for pain. Jayleen Dykes MA February 18, 2025 10:20 AM documented in this encounter [facility] 01-29-2025 Telephone encounter Note When patient returns call, can you please verify what number she is calling and leaving the requests for refills on? Since she states that she has called and left multiple requests we need to verify where she is calling. Thanks Stefania Puri MA [facility] 01-29-2025 Miscellaneous Notes When patient returns call, can you please verify what number she is calling and leaving the requests for refills on? Since she states that she has called and left multiple requests we need to verify where she is calling. Thanks Stefania Puri MA Left message for pt to return the call, number provided This is the first refill request I have gotten. Rx sent to the pharmacy. Please advise Patients daughter along with patient called today. Reason for Call: patient left 3 messages requesting refill for Xanax and has been out for 4 days now. Patient hasn't been able to sleep and anxiety is getting bad. Requesting script be sent to pharmacy today Thank you [phone] (home) [phone] (cell) Patient last appointment: 09/26/2024 Kavya Argueta documented in this encounter [facility] 01-29-2025 Telephone encounter Note Left message for pt to return the call, number provided [facility] 01-29-2025 Telephone encounter Note This is the first refill request I have gotten. Rx sent to the pharmacy. [facility] 01-29-2025 Telephone encounter Note Please advise [facility] 01-29-2025 Telephone encounter Note Patients daughter along with patient called today. Reason for Call: patient left 3 messages requesting refill for Xanax and has been out for 4 days now. Patient hasn't been able to sleep and anxiety is getting bad. Requesting script be sent to pharmacy today Thank you [phone] (home) [phone] (cell) Patient last appointment: 09/26/2024 Kavya Argueta T [facility] Work Phone: 01-08-2025 Note HNO ID: [id number] Author: KENTRELL DHALIWAL II, MD Service: ? Author Type: Physician Type: Progress Notes Filed: 01/08/2025 17:50 Note Text: Kentrell Dhaliwal II, MD [place] [id number] SUBJECTIVE Kaitlyn Escobar is a 74 year old female who presents with F/U 4 months (Pt asked if it would be possible to increase her Lasix at all, sates that some days she swells a lot. Pt states she is doing well over all.). HPI Patient is in today to follow-up her chronic problems and states that she is actually doing fairly well right now. She has been doing well with her stomach and she would like a refill on a couple medicines to use as needed. Review of Systems Constitutional: Negative for activity change, appetite change, chills, diaphoresis, fatigue, fever and unexpected weight change. HENT: Negative for congestion, dental problem, ear pain, hearing loss, nosebleeds, postnasal drip, rhinorrhea, sinus pressure, sinus pain, sore throat, trouble swallowing and voice change. Eyes: Negative for discharge, redness and visual disturbance. Respiratory: Negative for apnea, cough, choking, chest tightness, shortness of breath, wheezing and stridor. Cardiovascular: Negative for chest pain, palpitations and leg swelling. Gastrointestinal: Negative for abdominal distention, abdominal pain, blood in stool, constipation, diarrhea, nausea and vomiting. Endocrine: Negative for cold intolerance, heat intolerance, polydipsia, polyphagia and polyuria. Genitourinary: Negative for decreased urine volume, difficulty urinating, dysuria, enuresis, frequency, hematuria and urgency. Musculoskeletal: Negative for arthralgias, gait problem and myalgias. Skin: Negative for color change, pallor, rash and wound. Allergic/Immunologic: Negative for environmental allergies. Neurological: Negative for dizziness, tremors, syncope, facial asymmetry, speech difficulty, weakness, light-headedness, numbness and headaches. Hematological: Negative for adenopathy. Does not bruise/bleed easily. Psychiatric/Behavioral: Negative for agitation, behavioral problems, confusion, decreased concentration, dysphoric mood, hallucinations, self-injury, sleep disturbance and suicidal ideas. The patient is not nervous/anxious and is not hyperactive. PAST MEDICAL HISTORY Diagnosis Date Anxiety and depression Diabetes (HCC) Drug-induced Parkinson's disease (HCC) GERD (gastroesophageal reflux disease) History of DVT (deep vein thrombosis) IBS (irritable bowel syndrome) Seizures (HCC) Small bowel obstruction (HCC) Tremor PAST SURGICAL HISTORY Procedure Laterality Date CHOLECYSTECTOMY HX COLON SURGERY HX HYSTERECTOMY HX ROTATOR CUFF REPAIR Left TONSILLECTOMY HX TOOTH EXTRACTION Bilateral 2023 multiple teeth extracted WRIST SURGERY HX Right Social History Tobacco Use Smoking status: Never Smokeless tobacco: Never Vaping Use Vaping status: Never Used Substance Use Topics Alcohol use: Not Currently Drug use: Never FAMILY HISTORY Problem Relation Age of Onset Emphysema Mother Heart disease Father The ROS, medical, surgical, family, and social history were reviewed by Kentrell Dhaliwal II, MD ALLERGIES Allergen Reactions Latex Anaphylaxis Abilify [Aripiprazo* Other: See Comments Muscles couldn't get up Codeine Diarrhea Compazine [Prochlor* Myalgia Levaquin [Levofloxa* Diarrhea Omnicef [Cefdinir] Diarrhea Prednisone GI Upset Propoxyphene Unknown Qaazgjc-Sma-Bob Red* Diarrhea, Intolerance Sulfa (Sulfonamide * Other: See Comments Leg pain Shellfish Containin* Swelling Current Outpatient Medications Medication Sig busPIRone (BUSPAR) 15 mg tablet Take 0.5 tablets by mouth two times a day. (Patient taking differently: Take 15 mg by mouth two times a day.) zolpidem (AMBIEN) 10 mg Take 1 tablet by mouth at bedtime as needed for up to 90 days. ALPRAZolam (XANAX) 1 mg tablet Take 1 tablet by mouth every 12 hours as needed for up to 30 days. levothyroxine (SYNTHROID) 50 mcg tablet Take 1 tablet by mouth once daily. ezetimibe (ZETIA) 10 mg tablet Take 1 tablet by mouth once daily. rOPINIRole (REQUIP) 0.5 mg tablet Take 1 tablet by mouth two times a day. promethazine (PHENERGAN) 25 mg tablet Take 1 tablet by mouth every 6 hours as needed. clotrimazole-betamethasone (LOTRISONE) cream Apply to affected area two times a day. omeprazole (PRILOSEC) 40 mg capsule Take 1 capsule by mouth two times a day. polyethylene glycol 3350 17 gram packet Take 17 g by mouth two times a day. Dissolve dose in 4 - 8 ounces of liquid and take as directed. warfarin (COUMADIN) 5 mg tablet Take 1 tablet by mouth once daily. albuterol HFA (PROVENTIL HFA, VENTOLIN HFA) 90 mcg/actuation inhaler Inhale 2 Puffs as instructed every 6 hours as needed for wheezing/shortness of breath. simethicone 250 mg cap Take 1 capsule by mouth three times a day. hyoscyamine S (more content not included)... [facility] 01-01-2025 Telephone encounter Note Prescription Refill Information The patient has been identified by name and date of : Yes Caregiver verified no other encounters exist for this prescription request: Yes Caregiver confirmed with patient/requestor that no other refills are due, in the near future, with this provider at this time: No The last office visit in the department: 09/26/24 Does the patient have a future office visit with this provider/department: Yes Requested Prescriptions Pending Prescriptions Disp Refills busPIRone (BUSPAR) 15 mg tablet 90 tablet 1 Sig: Take 1 tablet by mouth three times a day. zolpidem (AMBIEN) 10 mg 30 tablet 2 Sig: Take 1 tablet by mouth at bedtime as needed for up to 90 days. Rosibel Rodriguez MA January 01, 2025 3:41 PM [facility] 01-01-2025 Miscellaneous Notes Prescription Refill Information The patient has been identified by name and date of : Yes Caregiver verified no other encounters exist for this prescription request: Yes Caregiver confirmed with patient/requestor that no other refills are due, in the near future, with this provider at this time: No The last office visit in the department: 09/26/24 Does the patient have a future office visit with this provider/department: Yes Requested Prescriptions Pending Prescriptions Disp Refills busPIRone (BUSPAR) 15 mg tablet 90 tablet 1 Sig: Take 1 tablet by mouth three times a day. zolpidem (AMBIEN) 10 mg 30 tablet 2 Sig: Take 1 tablet by mouth at bedtime as needed for up to 90 days. Rosibel Rodriguez MA January 01, 2025 3:41 PM documented in this encounter [facility] 12-25-2024 Telephone encounter Note Prescription Refill Information The patient has been identified by name and date of : Yes Caregiver verified no other encounters exist for this prescription request: Yes Caregiver confirmed with patient/requestor that no other refills are due, in the near future, with this provider at this time: No The last office visit in the department: 09/26/24 Does the patient have a future office visit with this provider/department: Yes Requested Prescriptions Pending Prescriptions Disp Refills ALPRAZolam (XANAX) 1 mg tablet Sig: Take by mouth. Rosibel Rodriguez MA December 25, 2024 5:10 PM [facility] 12-25-2024 Miscellaneous Notes Prescription Refill Information The patient has been identified by name and date of : Yes Caregiver verified no other encounters exist for this prescription request: Yes Caregiver confirmed with patient/requestor that no other refills are due, in the near future, with this provider at this time: No The last office visit in the department: 09/26/24 Does the patient have a future office visit with this provider/department: Yes Requested Prescriptions Pending Prescriptions Disp Refills ALPRAZolam (XANAX) 1 mg tablet Sig: Take by mouth. Rosibel Rodriguez MA December 25, 2024 5:10 PM documented in this encounter [facility] 12-10-2024 Telephone encounter Note Refills were sent [facility] 12-10-2024 Miscellaneous Notes Refills were sent Left message for patient to call. Phone number was provided. Patient left message on refill line, please verify what medication patient was needing documented in this encounter [facility] 12-09-2024 Telephone encounter Note Prescription Refill Information The patient has been identified by name and date of : Yes Caregiver verified no other encounters exist for this prescription request: Yes Caregiver confirmed with patient/requestor that no other refills are due, in the near future, with this provider at this time: Yes The last office visit in the department: 09/03/2024 Does the patient have a future office visit with this provider/department: Yes Requested Prescriptions Pending Prescriptions Disp Refills ezetimibe (ZETIA) 10 mg tablet 30 tablet 3 Sig: Take 1 tablet by mouth once daily. Ayanna Toscano MA December 09, 2024 11:12 AM [facility] 12-09-2024 Miscellaneous Notes Prescription Refill Information The patient has been identified by name and date of : Yes Caregiver verified no other encounters exist for this prescription request: Yes Caregiver confirmed with patient/requestor that no other refills are due, in the near future, with this provider at this time: Yes The last office visit in the department: 09/03/2024 Does the patient have a future office visit with this provider/department: Yes Requested Prescriptions Pending Prescriptions Disp Refills ezetimibe (ZETIA) 10 mg tablet 30 tablet 3 Sig: Take 1 tablet by mouth once daily. Ayanna Toscano MA December 09, 2024 11:12 AM documented in this encounter [facility] 12-09-2024 Telephone encounter Note Prescription Refill Information The patient has been identified by name and date of : Yes Caregiver verified no other encounters exist for this prescription request: Yes Caregiver confirmed with patient/requestor that no other refills are due, in the near future, with this provider at this time: No The last office visit in the department: 09/26/2024 Does the patient have a future office visit with this provider/department: Yes Requested Prescriptions Pending Prescriptions Disp Refills levothyroxine (SYNTHROID) 50 mcg tablet [Pharmacy Med Name: levothyroxine 50 mcg tablet] 90 tablet 1 Sig: Take 1 tablet by mouth once daily. Jayleen Dykes MA December 09, 2024 8:06 AM [facility] 12-09-2024 Miscellaneous Notes Prescription Refill Information The patient has been identified by name and date of : Yes Caregiver verified no other encounters exist for this prescription request: Yes Caregiver confirmed with patient/requestor that no other refills are due, in the near future, with this provider at this time: No The last office visit in the department: 09/26/2024 Does the patient have a future office visit with this provider/department: Yes Requested Prescriptions Pending Prescriptions Disp Refills levothyroxine (SYNTHROID) 50 mcg tablet [Pharmacy Med Name: levothyroxine 50 mcg tablet] 90 tablet 1 Sig: Take 1 tablet by mouth once daily. Jayleen Dykes MA December 09, 2024 8:06 AM documented in this encounter [facility] 12-08-2024 Telephone encounter Note Left message for patient to call. Phone number was provided. Patient left message on refill line, please verify what medication patient was needing [facility] 11-28-2024 Telephone encounter Note Patient called in today. She said that she has a cough and phlegm in her throat. I advised her she could use the walk in clinic or go to stat care. She did make an appointment as well to see Dr. Dhaliwal. [facility] 11-28-2024 Miscellaneous Notes Patient called in today. She said that she has a cough and phlegm in her throat. I advised her she could use the walk in clinic or go to stat care. She did make an appointment as well to see Dr. Dhaliwal. documented in this encounter [facility] 11-24-2024 Telephone encounter Note Prescription Refill Information The patient has been identified by name and date of : Yes Caregiver verified no other encounters exist for this prescription request: Yes Caregiver confirmed with patient/requestor that no other refills are due, in the near future, with this provider at this time: Yes The last office visit in the department: 09/26/2024 Does the patient have a future office visit with this provider/department: Yes Requested Prescriptions Pending Prescriptions Disp Refills rOPINIRole (REQUIP) 0.5 mg tablet 60 tablet 5 Sig: Take 1 tablet by mouth two times a day. ALPRAZolam (XANAX) 1 mg tablet 60 tablet 0 Sig: Take 1 tablet by mouth every 12 hours as needed for up to 30 days. Sanjuana Brandt MA November 24, 2024 4:00 PM [facility] 11-24-2024 Miscellaneous Notes Prescription Refill Information The patient has been identified by name and date of : Yes Caregiver verified no other encounters exist for this prescription request: Yes Caregiver confirmed with patient/requestor that no other refills are due, in the near future, with this provider at this time: Yes The last office visit in the department: 09/26/2024 Does the patient have a future office visit with this provider/department: Yes Requested Prescriptions Pending Prescriptions Disp Refills rOPINIRole (REQUIP) 0.5 mg tablet 60 tablet 5 Sig: Take 1 tablet by mouth two times a day. ALPRAZolam (XANAX) 1 mg tablet 60 tablet 0 Sig: Take 1 tablet by mouth every 12 hours as needed for up to 30 days. Sanjuana Brandt MA November 24, 2024 4:00 PM documented in this encounter [facility] 11-10-2024 Telephone encounter Note Prescription Refill Information The patient has been identified by name and date of : Yes Caregiver verified no other encounters exist for this prescription request: Yes Caregiver confirmed with patient/requestor that no other refills are due, in the near future, with this provider at this time: Yes The last office visit in the department: 09/26/2024 Does the patient have a future office visit with this provider/department: Yes Requested Prescriptions Pending Prescriptions Disp Refills promethazine (PHENERGAN) 25 mg tablet 30 tablet 5 Sig: Take 1 tablet by mouth every 6 hours as needed. Sanjuana Brandt MA November 10, 2024 11:19 AM [facility] 11-10-2024 Miscellaneous Notes Prescription Refill Information The patient has been identified by name and date of : Yes Caregiver verified no other encounters exist for this prescription request: Yes Caregiver confirmed with patient/requestor that no other refills are due, in the near future, with this provider at this time: Yes The last office visit in the department: 09/26/2024 Does the patient have a future office visit with this provider/department: Yes Requested Prescriptions Pending Prescriptions Disp Refills promethazine (PHENERGAN) 25 mg tablet 30 tablet 5 Sig: Take 1 tablet by mouth every 6 hours as needed. Sanjuana Brandt MA November 10, 2024 11:19 AM documented in this encounter [facility] 10-28-2024 Telephone encounter Note Prescription Refill Information The patient has been identified by name and date of : Yes Caregiver verified no other encounters exist for this prescription request: Yes Caregiver confirmed with patient/requestor that no other refills are due, in the near future, with this provider at this time: No The last office visit in the department: 09/26/2024 Does the patient have a future office visit with this provider/department: Yes Requested Prescriptions Pending Prescriptions Disp Refills ALPRAZolam (XANAX) 1 mg tablet 60 tablet 0 Sig: Take 1 tablet by mouth every 12 hours as needed for up to 30 days. Perla Meneses October 28, 2024 10:07 AM [facility] 10-28-2024 Miscellaneous Notes Prescription Refill Information The patient has been identified by name and date of : Yes Caregiver verified no other encounters exist for this prescription request: Yes Caregiver confirmed with patient/requestor that no other refills are due, in the near future, with this provider at this time: No The last office visit in the department: 09/26/2024 Does the patient have a future office visit with this provider/department: Yes Requested Prescriptions Pending Prescriptions Disp Refills ALPRAZolam (XANAX) 1 mg tablet 60 tablet 0 Sig: Take 1 tablet by mouth every 12 hours as needed for up to 30 days. Perla Meneses October 28, 2024 10:07 AM documented in this encounter [facility] 10-17-2024 Note HNO ID: [id number] Author: JESSIE MCCLOUD RN Service: ? Author Type: Registered Nurse Type: Progress Notes Filed: 10/17/2024 10:30 Note Text: TRANSITION CARE MANAGEMENT (TCM) FOLLOW-UP NOTE Provider Action/FYI Attempt to contact patient for update Patient identified by name and date of : n/a, patient did not answer Spoke to : n/a, left message Discharge Network Status: [id number] (OON) Discharge Summary: Patient admitted to [facility] for abd pain, bile duct obstruction and discharged on 09/17/24. F/u with PCP completed since discharge. Concerns: Left message for patient to call if any new questions or concerns. [place] Closer plan for next outreach: Left message making final post hospital DC outreach call. Please feel free to return my call if questions or concerns. Will graduate from further outreach calls as pt has not had any further ER visits or hospitalizations. Jessie Mccloud RN October 17, 2024 10:26 AM [facility] 10-17-2024 History of Presen t illness Narrative TRANSITION CARE MANAGEMENT (TCM) FOLLOW-UP NOTE Provider Action/FYI Attempt to contact patient for update Patient identified by name and date of : n/a, patient did not answer Spoke to : n/a, left message Discharge Network Status: [id number] (OON) Discharge Summary: Patient admitted to [facility] for abd pain, bile duct obstruction and discharged on 09/17/24. F/u with PCP completed since discharge. Concerns: Left message for patient to call if any new questions or concerns. [place] Closer plan for next outreach: Left message making final post hospital DC outreach call. Please feel free to return my call if questions or concerns. Will graduate from further outreach calls as pt has not had any further ER visits or hospitalizations. Jessie Mccloud RN October 17, 2024 10:26 AM documented in this encounter [facility] 10-17-2024 Note Patient Outreach (IN TMUD) KAITLYN ESCOBAR I ([id number]) 1950 F Date Time Provider Department 10/17/24 JESSIE MCCLOUD INTMUJevon During your visit today, we recorded the following information about you: Jessie Mccloud RN 10/17/2024 10:30 AM Signed TRANSITION CARE MANAGEMENT (TCM) FOLLOW-UP NOTE Provider Action/FYI Attempt to contact patient for update Patient identified by name and date of : n/a, patient did not answer Spoke to : n/a, left message Discharge Network Status: [id number] (OON) Discharge Summary: Patient admitted to [facility] for abd pain, bile duct obstruction and discharged on 09/17/24. F/u with PCP completed since discharge. Concerns: Left message for patient to call if any new questions or concerns. [place] Closer plan for next outreach: Left message making final post hospital DC outreach call. Please feel free to return my call if questions or concerns. Will graduate from further outreach calls as pt has not had any further ER visits or hospitalizations. Jessie Mccloud RN October 17, 2024 10:26 AM Allergies As of Date: 10/17/2024 Noted Allergy Reaction LATEX 06/22/2020 10 - Anaphylaxis ABILIFY (ARIPIPRAZOLE) 04/19/2022 14 - Other: See Comments Comments: Muscles couldn't get up CODEINE 06/22/2020 6 - Diarrhea COMPAZINE (PROCHLORPERAZINE) 06/22/2020 17 - Myalgia LEVAQUIN (LEVOFLOXACIN) 06/22/2020 6 - Diarrhea OMNICEF (CEFDINIR) 06/22/2020 6 - Diarrhea PREDNISONE 08/30/2021 8 - GI Upset PROPOXYPHENE 06/23/2015 16 - Unknown [id number] REDUCTASE INHIBIT*06/22/2020 6 - Diarrhea 5 - Intolerance SULFA (SULFONAMIDE ANTIBIOTICS) 06/15/2020 14 - Other: See Comments Comments: Leg pain SHELLFISH CONTAINING PRODUCTS 11/29/2012 7 - Swelling Date Reviewed: 09/26/2024 Reviewed by: Doorthy Wallace MA - Fully Assessed Reason for Visit: Transition Of Care [4074] Prescriptions as of 10/17/2024 - rOPINIRole (REQUIP) 0.5 mg tablet Take 1 tablet by mouth two times a day. - furosemide (LASIX) 20 mg tablet Take 1 tablet by mouth once daily. - nabumetone (RELAFEN) 750 mg tablet Take 1 tablet by mouth every 12 hours as needed for pain. - zolpidem (AMBIEN) 10 mg Take 1 tablet by mouth at bedtime as needed for up to 90 days. - clotrimazole-betamethasone (LOTRISONE) cream Apply to affected area two times a day. - omeprazole (PRILOSEC) 40 mg capsule Take 1 capsule by mouth two times a day. - sucralfate (CARAFATE) 1 gram tablet Take 1 tablet by mouth four times daily. - iikgldldjxs-pzdyqvacl-qjaibldu (TRELEGY ELLIPTA) 100-62.5-25 mcg inhalation powder Inhale 1 Puff as instructed once daily. - ALPRAZolam (XANAX) 1 mg tablet Take 1 tablet by mouth every 12 hours as needed for up to 30 days. - polyethylene glycol 3350 17 gram packet Take 17 g by mouth two times a day. Dissolve dose in 4 - 8 ounces of liquid and take as directed. - warfarin (COUMADIN) 5 mg tablet Take 1 tablet by mouth once daily. - busPIRone (BUSPAR) 15 mg tablet Take 1 tablet by mouth three times a day. - ferrous gluconate 236 mg (27 mg iron) tab Take 1 tablet by mouth once daily. - citalopram (CELEXA) 20 mg tablet Take 1 tablet by mouth once daily. - ezetimibe (ZETIA) 10 mg tablet take 1 tablet by mouth once daily - naphazoline-pheniramine eye drops (NAPHCON-A) 0.025-0.3 % ophthalmic solution Use 2 Drops in the left eye every 6 hours as needed. - ondansetron (ZOFRAN) 8 mg tablet Take 1 tablet by mouth every 8 hours as needed for nausea/vomiting. - albuterol HFA (PROVENTIL HFA, VENTOLIN HFA) 90 mcg/actuation inhaler Inhale 2 Puffs as instructed every 6 hours as needed for wheezing/shortness of breath. - promethazine (PHENERGAN) 25 mg tablet Take 1 tablet by mouth every 6 hours as needed. - levothyroxine (SYNTHROID) 50 mcg tablet Take 1 tablet by mouth once daily. - diphenoxylate-atropine (LOMOTIL) 2.5-0.025 mg per tablet Take 1 tablet by mouth four times a day as needed for up to 10 days. - ondansetron orally disintegrating (ZOFRAN ODT) 4 mg disintegrating tablet Take 1 tablet by mouth every 8 hours as needed for nausea/vomiting. - vtitiyknib-snntijgm-mrdywagstu (BREZTRI AEROSPHERE) 160-9-4.8 mcg/actuation HFA aerosol inhaler Inhale 2 Puffs as instructed two times a day. - simethicone 250 mg cap Take 1 capsule by mouth three times a day. - hyoscyamine SR (LEVBID) 0.375 mg 12 hr tablet Take 1 tablet by mouth two times a day. - dicyclomine (BENTYL) 20 mg tablet Take 1 tablet by mouth three times a day. - ondansetron (ZOFRAN) 4 mg tablet Take 1 tablet by mouth every 6 hours as needed. - buPROPion XL (WELLBUTRIN XL) 150 mg 24 hr tablet Take 2 tablets by mouth once daily. - cyclobenzaprine (FLEXERIL) 10 mg tablet Take 1 tablet by mouth three times daily as needed. - docusate sodium (COLACE) 100 mg capsule Take 1 capsule by mouth twice daily. (more content not included)... [facility] 10-15-2024 Telephone encounter Note Prescription Refill Information The patient has been identified by name and date of : Yes Caregiver verified no other encounters exist for this prescription request: Yes Caregiver confirmed with patient/requestor that no other refills are due, in the near future, with this provider at this time: Yes The last office visit in the department: 09/26/2024 Does the patient have a future office visit with this provider/department: Yes Requested Prescriptions Pending Prescriptions Disp Refills rOPINIRole (REQUIP) 0.5 mg tablet [Pharmacy Med Name: ropinirole 0.5 mg tablet] 60 tablet 5 Sig: Take 1 tablet by mouth two times a day. Dorothy Wallace MA October 15, 2024 8:05 AM [facility] 10-15-2024 Miscellaneous Notes Prescription Refill Information The patient has been identified by name and date of : Yes Caregiver verified no other encounters exist for this prescription request: Yes Caregiver confirmed with patient/requestor that no other refills are due, in the near future, with this provider at this time: Yes The last office visit in the department: 09/26/2024 Does the patient have a future office visit with this provider/department: Yes Requested Prescriptions Pending Prescriptions Disp Refills rOPINIRole (REQUIP) 0.5 mg tablet [Pharmacy Med Name: ropinirole 0.5 mg tablet] 60 tablet 5 Sig: Take 1 tablet by mouth two times a day. Dorothy Wallace MA October 15, 2024 8:05 AM documented in this encounter [facility] 10-07-2024 Telephone encounter Note Prescription Refill Information The patient has been identified by name and date of : Yes Caregiver verified no other encounters exist for this prescription request: Yes Caregiver confirmed with patient/requestor that no other refills are due, in the near future, with this provider at this time: Yes The last office visit in the department: 09/26/2024 Does the patient have a future office visit with this provider/department: Yes Requested Prescriptions Pending Prescriptions Disp Refills furosemide (LASIX) 20 mg tablet 30 tablet 2 Sig: Take 1 tablet by mouth once daily. nabumetone (RELAFEN) 750 mg tablet 28 tablet 3 Sig: Take 1 tablet by mouth every 12 hours as needed for pain. zolpidem (AMBIEN) 10 mg 30 tablet 2 Sig: Take 1 tablet by mouth at bedtime as needed for up to 90 days. clotrimazole-betamethasone (LOTRISONE) cream 45 g 1 Sig: Apply to affected area two times a day. Husam Grant MA October 07, 2024 2:52 PM [facility] 10-07-2024 Miscellaneous Notes Prescription Refill Information The patient has been identified by name and date of : Yes Caregiver verified no other encounters exist for this prescription request: Yes Caregiver confirmed with patient/requestor that no other refills are due, in the near future, with this provider at this time: Yes The last office visit in the department: 09/26/2024 Does the patient have a future office visit with this provider/department: Yes Requested Prescriptions Pending Prescriptions Disp Refills furosemide (LASIX) 20 mg tablet 30 tablet 2 Sig: Take 1 tablet by mouth once daily. nabumetone (RELAFEN) 750 mg tablet 28 tablet 3 Sig: Take 1 tablet by mouth every 12 hours as needed for pain. zolpidem (AMBIEN) 10 mg 30 tablet 2 Sig: Take 1 tablet by mouth at bedtime as needed for up to 90 days. clotrimazole-betamethasone (LOTRISONE) cream 45 g 1 Sig: Apply to affected area two times a day. Husam Grant MA October 07, 2024 2:52 PM documented in this encounter [facility] 09-29-2024 Telephone encounter Note Prescription Refill Information The patient has been identified by name and date of : Yes Caregiver verified no other encounters exist for this prescription request: Yes Caregiver confirmed with patient/requestor that no other refills are due, in the near future, with this provider at this time: Yes The last office visit in the department: 09/26/2023 Does the patient have a future office visit with this provider/department: Yes Requested Prescriptions Pending Prescriptions Disp Refills zolpidem (AMBIEN) 10 mg [Pharmacy Med Name: zolpidem 10 mg tablet] 30 tablet 2 Sig: Take 1 tablet by mouth at bedtime as needed for up to 90 days. Dorothy Wallace MA September 29, 2024 8:34 AM [facility] 09-29-2024 Miscellaneous Notes Prescription Refill Information The patient has been identified by name and date of : Yes Caregiver verified no other encounters exist for this prescription request: Yes Caregiver confirmed with patient/requestor that no other refills are due, in the near future, with this provider at this time: Yes The last office visit in the department: 09/26/2023 Does the patient have a future office visit with this provider/department: Yes Requested Prescriptions Pending Prescriptions Disp Refills zolpidem (AMBIEN) 10 mg [Pharmacy Med Name: zolpidem 10 mg tablet] 30 tablet 2 Sig: Take 1 tablet by mouth at bedtime as needed for up to 90 days. Dorothy Wallace MA September 29, 2024 8:34 AM documented in this encounter [facility] 09-26-2024 Note HNO ID: [id number] Author: KENTRELL DHALIWAL II, MD Service: ? Author Type: Physician Type: Progress Notes Filed: 09/26/2024 22:24 Note Text: Transitional Care Management TCM Eligibility Documentation Program: Transitional Care Management Status: Enrolled Effective Dates: 09/18/2024 - present Responsible Staff: Jessie Mccloud RN Discharge date: 09/17/2024 (Program start) Date of initial contact: 09/18/2024 Initial contact [employer] status: Successful; Contact made within 2 business days post-discharge Summary Discharged from: [facility] Admit Date: 09/14/24 Admitted for: Abdominal pain and biliary obstruction. Kentrell Dhaliwal II, MD Provider Documentation Kaitlyn Escobar is a 74 year old female here today for a follow up to recent hospitalization. I have reviewed the patient's hospital course including diagnostic testing performed during this hospitalization, their discharge medications, and my assessment and plan with the patient and any family members present at today's visit. HPI: Patient is in today to follow-up admission for abdominal discomfort. She states that she was having abdominal pain was dizzy, lightheaded and was a little bit confused and went to the ER for evaluation. Apparently she was dehydrated and her liver tests were significantly elevated. She states that she is not sure what they really diagnosed her with the but they state that the test they did were unremarkable and they sent her home after she had had IV fluids and started to feel better. She states she is feeling a little bit better now she is just kind of weak and she gets easily winded while she is walking. She does state that her albuterol inhaler does help a lot. I did note that her pulse ox both seated and just after exercise is normal today. She states that her stomach feels fairly well but she is nauseated and she states Phenergan helps but Phenergan makes her have a little bit more heartburn. ROS Vitals BP 126/82 Pulse 81 Temp (Src) 98.7 (Temporal) Resp 24 Ht 5' 1 (1.55m) Wt 139 lb 9.6 oz (63.3kg) SpO2 100% BMI 26.39 kg/(m2). Physical Exam ASSESSMENT/PLAN: 1. Generalized abdominal pain - ICD9: 789.07, ICD10: R10.84 (primary diagnosis) The pain is improved. We will be going to have her increase her omeprazole to twice daily, add Carafate before every meal and nightly. She is going to continue to take the Phenergan for nausea for now. She is going to call in 3 to 5 days or sooner if needed with an update 2. Gastroesophageal reflux disease, unspecified whether esophagitis present - ICD9: 530.81, ICD10: K21.9 See above 3. SOB (shortness of breath) - ICD9: 786.05, ICD10: R06.02 Given the fact that albuterol is helping even though she has normal oxygenation and her exam does not reveal any active wheezing were going to try her on Trelegy along with albuterol rescue inhaler. She is going to call in 3 to 5 days or sooner if needed with an update on this as well. 4. Anxiety and depression - ICD9: 300.00, 311, ICD10: F41.9, F32.A Clinically stable. Continue same medication and treatment. Follow up in 3 to 6 months or sooner if needed. - ALPRAZOLAM 1 MG TABLET 5. Elevated blood pressure reading without diagnosis of hypertension - ICD9: 796.2, ICD10: R03.0 Her blood pressure is normal today and she states that it was normal when she left the hospital. Kentrell Dhaliwal II, MD 3 to 5 days or sooner if needed with an update [facility] 09-26-2024 History of Presen t illness Narrative Transitional Care Management TCM Eligibility Documentation Program: Transitional Care Management Status: Enrolled Effective Dates: 09/18/2024 - present Responsible Staff: Jessie Mccloud RN Discharge date: 09/17/2024 (Program start) Date of initial contact: 09/18/2024 Initial contact Target status: Successful; Contact made within 2 business days post-discharge Summary Discharged from: [facility] Admit Date: 09/14/24 Admitted for: Abdominal pain and biliary obstruction. Kentrell Dhaliwal II, MD Provider Documentation Kaitlyn Escobar is a 74 year old female here today for a follow up to recent hospitalization. I have reviewed the patient's hospital course including diagnostic testing performed during this hospitalization, their discharge medications, and my assessment and plan with the patient and any family members present at today's visit. HPI: Patient is in today to follow-up admission for abdominal discomfort. She states that she was having abdominal pain was dizzy, lightheaded and was a little bit confused and went to the ER for evaluation. Apparently she was dehydrated and her liver tests were significantly elevated. She states that she is not sure what they really diagnosed her with the but they state that the test they did were unremarkable and they sent her home after she had had IV fluids and started to feel better. She states she is feeling a little bit better now she is just kind of weak and she gets easily winded while she is walking. She does state that her albuterol inhaler does help a lot. I did note that her pulse ox both seated and just after exercise is normal today. She states that her stomach feels fairly well but she is nauseated and she states Phenergan helps but Phenergan makes her have a little bit more heartburn. ROS Vitals BP 126/82 Pulse 81 Temp (Src) 98.7 (Temporal) Resp 24 Ht 5' 1 (1.55m) Wt 139 lb 9.6 oz (63.3kg) SpO2 100% BMI 26.39 kg/(m^2). Physical Exam ASSESSMENT/PLAN: 1. Generalized abdominal pain - ICD9: 789.07, ICD10: R10.84 (primary diagnosis) The pain is improved. We will be going to have her increase her omeprazole to twice daily, add Carafate before every meal and nightly. She is going to continue to take the Phenergan for nausea for now. She is going to call in 3 to 5 days or sooner if needed with an update 2. Gastroesophageal reflux disease, unspecified whether esophagitis present - ICD9: 530.81, ICD10: K21.9 See above 3. SOB (shortness of breath) - ICD9: 786.05, ICD10: R06.02 Given the fact that albuterol is helping even though she has normal oxygenation and her exam does not reveal any active wheezing were going to try her on Trelegy along with albuterol rescue inhaler. She is going to call in 3 to 5 days or sooner if needed with an update on this as well. 4. Anxiety and depression - ICD9: 300.00, 311, ICD10: F41.9, F32.A Clinically stable. Continue same medication and treatment. Follow up in 3 to 6 months or sooner if needed. - ALPRAZOLAM 1 MG TABLET 5. Elevated blood pressure reading without diagnosis of hypertension - ICD9: 796.2, ICD10: R03.0 Her blood pressure is normal today and she states that it was normal when she left the hospital. Kentrell Dhaliwal II, MD 3 to 5 days or sooner if needed with an update documented in this encounter [facility] 09-21-2024 Note HNO ID: [id number] Author: KENTRELL DHALIWAL II, MD Service: ? Author Type: Physician Type: Progress Notes Filed: 09/21/2024 15:43 Note Text: Kentrell Dhaliwal II, MD [address], [place] [address] NOEMI Escobar is a 74 year old female who presents with F/U 3 Month. HPI Patient is in today to follow-up chronic problems. She states that she feels like she is actually doing fairly good right now and she just needs some refills on medication. Review of Systems Constitutional: Negative for activity change, appetite change, chills, diaphoresis, fatigue, fever and unexpected weight change. HENT: Negative for congestion, dental problem, drooling, ear discharge, ear pain, facial swelling, hearing loss, mouth sores, nosebleeds, postnasal drip, rhinorrhea, sinus pressure, sinus pain, sneezing, sore throat, tinnitus, trouble swallowing and voice change. Eyes: Negative for discharge, redness and visual disturbance. Respiratory: Negative for apnea, cough, choking, chest tightness, shortness of breath, wheezing and stridor. Cardiovascular: Negative for chest pain, palpitations and leg swelling. Gastrointestinal: Negative for abdominal distention, abdominal pain, blood in stool, constipation, diarrhea, nausea and vomiting. Endocrine: Negative for cold intolerance, heat intolerance, polydipsia, polyphagia and polyuria. Genitourinary: Negative for decreased urine volume, difficulty urinating, dysuria, enuresis, frequency, hematuria and urgency. Musculoskeletal: Negative for arthralgias, gait problem and myalgias. Skin: Negative for color change, pallor, rash and wound. Allergic/Immunologic: Negative for environmental allergies. Neurological: Negative for dizziness, tremors, syncope, facial asymmetry, speech difficulty, weakness, light-headedness, numbness and headaches. Hematological: Negative for adenopathy. Does not bruise/bleed easily. Psychiatric/Behavioral: Negative for agitation, behavioral problems, confusion, decreased concentration, dysphoric mood, hallucinations, self-injury, sleep disturbance and suicidal ideas. The patient is not nervous/anxious and is not hyperactive. PAST MEDICAL HISTORY Diagnosis Date Anxiety and depression Diabetes (HCC) Drug-induced Parkinson's disease (HCC) GERD (gastroesophageal reflux disease) History of DVT (deep vein thrombosis) IBS (irritable bowel syndrome) Seizures (HCC) Small bowel obstruction (HCC) Tremor PAST SURGICAL HISTORY Procedure Laterality Date CHOLECYSTECTOMY HX COLON SURGERY HX HYSTERECTOMY HX ROTATOR CUFF REPAIR Left TONSILLECTOMY HX WRIST SURGERY HX Right Social History Tobacco Use Smoking status: Never Smokeless tobacco: Never Vaping Use Vaping status: Never Used Substance Use Topics Alcohol use: Not Currently Drug use: Never FAMILY HISTORY Problem Relation Age of Onset Emphysema Mother Heart disease Father The ROS, medical, surgical, family, and social history were reviewed by Kentrell Dhaliwal II, MD ALLERGIES Allergen Reactions Latex Anaphylaxis Abilify [Aripiprazo* Other: See Comments Muscles couldn't get up Codeine Diarrhea Compazine [Prochlor* Myalgia Levaquin [Levofloxa* Diarrhea Omnicef [Cefdinir] Diarrhea Prednisone GI Upset Propoxyphene Unknown Enkjcdh-Bms-Eln Red* Diarrhea, Intolerance Sulfa (Sulfonamide * Other: See Comments Leg pain Shellfish Containin* Swelling Current Outpatient Medications Medication Sig ALPRAZolam (XANAX) 1 mg tablet Take 1 tablet by mouth every 12 hours as needed for up to 30 days. ferrous gluconate 236 mg (27 mg iron) tab Take 1 tablet by mouth once daily. citalopram (CELEXA) 20 mg tablet Take 1 tablet by mouth once daily. zolpidem (AMBIEN) 10 mg Take 1 tablet by mouth at bedtime as needed for up to 90 days. ezetimibe (ZETIA) 10 mg tablet take 1 tablet by mouth once daily naphazoline-pheniramine eye drops (NAPHCON-A) 0.025-0.3 % ophthalmic solution Use 2 Drops in the left eye every 6 hours as needed. (Patient not taking: Reported on 09/18/2024) ondansetron (ZOFRAN) 8 mg tablet Take 1 tablet by mouth every 8 hours as needed for nausea/vomiting. (Patient not taking: Reported on 09/18/2024) albuterol HFA (PROVENTIL HFA, VENTOLIN HFA) 90 mcg/actuation inhaler Inhale 2 Puffs as instructed every 6 hours as needed for wheezing/shortness of breath. promethazine (PHENERGAN) 25 mg tablet Take 1 tablet by mouth every 6 hours as needed. (Patient not taking: Reported on 09/18/2024) levothyroxine (SYNTHROID) 50 mcg tablet Take 1 tablet by mouth once daily. rOPINIRole (REQUIP) 0.5 mg tablet Take 1 tablet by mouth two times a day. clotrimazole-betamethasone (LOTRISONE) cream Apply to affected area two times a day. (Patient taking differently: Apply 1 Application to affected area two times a day. As needed) diphenoxylate-atropine (LOMOTIL) 2.5-0.025 mg per tablet Take 1 table (more content not included)... [facility] 09-21-2024 History of Presen t illness Narrative Images from the original note were not included. Kentrell Dhaliwal II, MD [address], [place] [address] SUBJECTIVE Kaitlyn Escobar is a 74 year old female who presents with F/U 3 Month. HPI Patient is in today to follow-up chronic problems. She states that she feels like she is actually doing fairly good right now and she just needs some refills on medication. Review of Systems Constitutional: Negative for activity change, appetite change, chills, diaphoresis, fatigue, fever and unexpected weight change. HENT: Negative for congestion, dental problem, drooling, ear discharge, ear pain, facial swelling, hearing loss, mouth sores, nosebleeds, postnasal drip, rhinorrhea, sinus pressure, sinus pain, sneezing, sore throat, tinnitus, trouble swallowing and voice change. Eyes: Negative for discharge, redness and visual disturbance. Respiratory: Negative for apnea, cough, choking, chest tightness, shortness of breath, wheezing and stridor. Cardiovascular: Negative for chest pain, palpitations and leg swelling. Gastrointestinal: Negative for abdominal distention, abdominal pain, blood in stool, constipation, diarrhea, nausea and vomiting. Endocrine: Negative for cold intolerance, heat intolerance, polydipsia, polyphagia and polyuria. Genitourinary: Negative for decreased urine volume, difficulty urinating, dysuria, enuresis, frequency, hematuria and urgency. Musculoskeletal: Negative for arthralgias, gait problem and myalgias. Skin: Negative for color change, pallor, rash and wound. Allergic/Immunologic: Negative for environmental allergies. Neurological: Negative for dizziness, tremors, syncope, facial asymmetry, speech difficulty, weakness, light-headedness, numbness and headaches. Hematological: Negative for adenopathy. Does not bruise/bleed easily. Psychiatric/Behavioral: Negative for agitation, behavioral problems, confusion, decreased concentration, dysphoric mood, hallucinations, self-injury, sleep disturbance and suicidal ideas. The patient is not nervous/anxious and is not hyperactive. PAST MEDICAL HISTORY Diagnosis Date Anxiety and depression Diabetes (HCC) Drug-induced Parkinson's disease (HCC) GERD (gastroesophageal reflux disease) History of DVT (deep vein thrombosis) IBS (irritable bowel syndrome) Seizures (HCC) Small bowel obstruction (HCC) Tremor PAST SURGICAL HISTORY Procedure Laterality Date CHOLECYSTECTOMY HX COLON SURGERY HX HYSTERECTOMY HX ROTATOR CUFF REPAIR Left TONSILLECTOMY HX WRIST SURGERY HX Right Social History Tobacco Use Smoking status: Never Smokeless tobacco: Never Vaping Use Vaping status: Never Used Substance Use Topics Alcohol use: Not Currently Drug use: Never FAMILY HISTORY Problem Relation Age of Onset Emphysema Mother Heart disease Father The ROS, medical, surgical, family, and social history were reviewed by Kentrell Dhaliwal II, MD ALLERGIES Allergen Reactions Latex Anaphylaxis Abilify [Aripiprazo* Other: See Comments Muscles couldn't get up Codeine Diarrhea Compazine [Prochlor* Myalgia Levaquin [Levofloxa* Diarrhea Omnicef [Cefdinir] Diarrhea Prednisone GI Upset Propoxyphene Unknown Dsexggh-Eny-Onr Red* Diarrhea, Intolerance Sulfa (Sulfonamide * Other: See Comments Leg pain Shellfish Containin* Swelling Current Outpatient Medications Medication Sig ALPRAZolam (XANAX) 1 mg tablet Take 1 tablet by mouth every 12 hours as needed for up to 30 days. ferrous gluconate 236 mg (27 mg iron) tab Take 1 tablet by mouth once daily. citalopram (CELEXA) 20 mg tablet Take 1 tablet by mouth once daily. zolpidem (AMBIEN) 10 mg Take 1 tablet by mouth at bedtime as needed for up to 90 days. ezetimibe (ZETIA) 10 mg tablet take 1 tablet by mouth once daily naphazoline-pheniramine eye drops (NAPHCON-A) 0.025-0.3 % ophthalmic solution Use 2 Drops in the left eye every 6 hours as needed. (Patient not taking: Reported on 09/18/2024) ondansetron (ZOFRAN) 8 mg tablet Take 1 tablet by mouth every 8 hours as needed for nausea/vomiting. (Patient not taking: Reported on 09/18/2024) albuterol HFA (PROVENTIL HFA, VENTOLIN HFA) 90 mcg/actuation inhaler Inhale 2 Puffs as instructed every 6 hours as needed for wheezing/shortness of breath. promethazine (PHENERGAN) 25 mg tablet Take 1 tablet by mouth every 6 hours as needed. (Patient not taking: Reported on 09/18/2024) levothyroxine (SYNTHROID) 50 mcg tablet Take 1 tablet by mouth once daily. rOPINIRole (REQUIP) 0.5 mg tablet Take 1 tablet by mouth two times a day. clotrimazole-betamethasone (LOTRISONE) cream Apply to affected area two times a day. (Patient taking differently: Apply 1 Application to affected area two times a day. As needed) diphenoxylate-atropine (LOMOTIL) 2.5-0.025 mg per tablet Take 1 tablet by mouth four times a day as needed for up to 10 days. flgpruoajc-rlkgzvae-zaijzgumjw (BREZTRI AEROSPHERE) 160-9-4.8 mcg/actuation HFA aerosol inhaler Inhale 2 Puffs as instructed two times a day. simethicone 250 mg cap Take 1 capsule by mouth three times a day. hyoscyamine SR (LEVBID) 0.375 mg 12 hr tablet Take 1 tablet by mouth two times a day. (Patient taking differently: Take 0.375 mg by mouth two times a day as needed for diarrhea.) dicyclomine (BENTYL) 20 mg tablet Take 1 tablet by mouth three times a day. (Patient taking differently: Take 20 mg by mouth three times a day as needed.) docusate sodium (COLACE) 100 mg capsule Take 1 capsule by mouth twice daily. SF 5000 PLUS 1.1 % dental cream polyethylene glycol 3350 17 gram packet Take 17 g by mouth two times a day. Dissolve dose in 4 - 8 ounces of liquid and take as directed. warfarin (COUMADIN) 5 mg tablet Take 1 tablet by mouth once daily. furosemide (LASIX) 20 mg tablet Take 1 tablet by mouth once daily. nabumetone (RELAFEN) 750 mg tablet Take 1 tablet by mouth every 12 hours as needed for pain. omeprazole (PRILOSEC) 40 mg capsule Take 1 capsule by mouth once daily. busPIRone (BUSPAR) 15 mg tablet Take 1 tablet by mouth three times a day. (Patient taking differently: Take 7.5 mg by mouth two times a day.) ondansetron orally disintegrating (ZOFRAN ODT) 4 mg disintegrating tablet Take 1 tablet by mouth every 8 hours as needed for nausea/vomiting. (Patient not taking: Reported on 09/03/2024) ondansetron (ZOFRAN) 4 mg tablet Take 1 tablet by mouth every 6 hours as needed. (Patient taking differently: Take 4 mg by mouth every 6 hours as needed for nausea/vomiting.) buPROPion XL (WELLBUTRIN XL) 150 mg 24 hr tablet Take 2 tablets by mouth once daily. (Patient not taking: Reported on 07/04/2024) cyclobenzaprine (FLEXERIL) 10 mg tablet Take 1 tablet by mouth three times daily as needed. (Patient not taking: Reported on 07/04/2024) No current facility-administered medications for this visit. OBJECTIVE BP 175/97 (BP Site: Left Arm, BP Position: Sitting, BP Cuff Size: Regular Adult) Pulse 83 Ht 154.9 cm (5' 1) Wt 69.9 kg (154 lb) SpO2 97% BMI 29.10 kg/m BMI 29.10 kg/(m^2) Physical Exam Vitals and nursing note reviewed. Constitutional: General: She is not in acute distress. Appearance: Normal appearance. She is not ill-appearing, toxic-appearing or diaphoretic. HENT: Head: Normocephalic and atraumatic. Right Ear: Tympanic membrane, ear canal and external ear normal. There is no impacted cerumen. Left Ear: Tympanic membrane, ear canal and external ear normal. There is no impacted cerumen. Nose: Nose normal. No congestion or rhinorrhea. Mouth/Throat: Mouth: Mucous membranes are moist. Pharynx: Oropharynx is clear. No oropharyngeal exudate or posterior oropharyngeal erythema. Eyes: General: No scleral icterus. Right eye: No discharge. Left eye: No discharge. Extraocular Movements: Extraocular movements intact. Conjunctiva/sclera: Conjunctivae normal. Pupils: Pupils are equal, round, and reactive to light. Neck: Vascular: No carotid bruit. Cardiovascular: Rate and Rhythm: Normal rate and regular rhythm. Pulses: Normal pulses. Heart sounds: Normal heart sounds. No murmur heard. No friction rub. No gallop. Pulmonary: Effort: Pulmonary effort is normal. No respiratory distress. Breath sounds: Normal breath sounds. No stridor. No wheezing, rhonchi or rales. Chest: Chest wall: No tenderness. Abdominal: General: Abdomen is flat. Bowel sounds are normal. There is no distension. Palpations: Abdomen is soft. There is no mass. Tenderness: There is no abdominal tenderness. There is no right CVA tenderness, left CVA tenderness, guarding or rebound. Hernia: No hernia is present. Musculoskeletal: General: No signs of injury. Cervical back: Normal range of motion and neck supple. No rigidity or tenderness. Comments: ROM and strength without significant changes from previous examinations and consistent with patient history Lymphadenopathy: Cervical: No cervical adenopathy. Skin: General: Skin is warm and dry. Capillary Refill: Capillary refill takes less than 2 seconds. Coloration: Skin is not jaundiced or pale. Findings: No erythema, lesion or rash. Neurological: General: No focal deficit present. Mental Status: She is alert and oriented to person, place, and time. Mental status is at baseline. Cranial Nerves: No cranial nerve deficit. Sensory: No sensory deficit. Motor: No weakness. Coordination: Coordination normal. Gait: Gait normal. Deep Tendon Reflexes: Reflexes normal. Psychiatric: Mood and Affect: Mood normal. Behavior: Behavior normal. Thought Content: Thought content normal. Judgment: Judgment normal. Labs: Hemoglobin (g/dL) Date Value 06/11/2024 12.2 11/23/2022 11.6 Hematocrit (%) Date Value 06/11/2024 37.1 11/23/2022 35.1 WBC Date Value 06/11/2024 8.86 k/uL 11/23/2022 7.8 x10(3) Platelet Count Date Value 06/11/2024 385 k/uL 11/23/2022 391 X10(3) Creatinine Date Value Ref Range Status 06/11/2024 1.13 (H) 0.58 - 0.96 mg/dL Final AST Date Value Ref Range Status 06/11/2024 27 13 - 35 U/L Final ALT Date Value Ref Range Status 06/11/2024 20 7 - 38 U/L Final Blood Culture (no units) Date Value 11/12/2021 XXX 11/12/2021 XXX Bilirubin, Total (mg/dL) Date Value 06/11/2024 0.3 Bilirubin, Direct (mg/dL) Date Value 06/11/2024 <0.2 Antibody Screen (no units) Date Value 04/01/2023 Negative WBC (k/uL) Date Value 06/11/2024 8.86 RBC (m/uL) Date Value 06/11/2024 3.98 %DIG,%DBS Plan ASSESSMENT/PLAN: 1. Gastroesophageal reflux disease, unspecified whether esophagitis present - ICD9: 530.81, ICD10: K21.9 (primary diagnosis) Clinically stable. Continue same medication and treatment. Follow up in 3 to 6 months or sooner if needed. 2. Generalized abdominal pain - ICD9: 789.07, ICD10: R10.84 Improved. Continue same treatment and follow-up as needed for this issue. - TRAMADOL 50 MG TABLET 3. Anxiety and depression - ICD9: 300.00, 311, ICD10: F41.9, F32.A Clinically stable. Continue same medication and treatment. Follow up in 3 to 6 months or sooner if needed. - BUSPIRONE 15 MG TABLET 4. Hypothyroidism, acquired - ICD9: 244.9, ICD10: E03.9 - Instructed patient on importance of taking on an empty stomach either first thing in the morning or at bedtime. - check TSH in 3 months and in 6 months - continue current dose of Synthroid - Follow up in 6 months 5. Elevated blood pressure reading without diagnosis of hypertension - ICD9: 796.2, ICD10: R03.0 Suspected [place] elevation or anxiety - Encouraged dietary sodium restriction/DASH diet - Recommended regular aerobic exercise. -Her home blood pressures are within acceptable ranges. Recommend continued home blood pressure monitoring, to bring results in on next visit - Goal of BP <130/80 Kentrell Dhaliwal II, MD Follow up: No follow-ups on file. Kentrell Dhaliwal II, M.D. documented in this encounter [facility] 09-18-2024 History of Presen t illness Narrative Initial Contact Transition Care Management (TCM) Initial contact with patient post discharge, spoke to patient. Patient identified by name and . SUMMARY: - Patient discharged from [facility] on 09/17/24. - Follow up appointment on 09/26/24. - Medication review done? Yes - Admitted for: Abdominal pain, bile duct obstruction - Consults: Yes - general surgeon 1. I have reviewed the patient record including associated test results during the last hospitalization: Yes - labs, CT chest, abd, pelvis, MRCP abdomen 2. I have reviewed Assessment/Plan with patient/family member: Yes CONCERNS: Patient stated no new concerns and that she is feeling much better NEW MEDICATIONS: None CHANGED MEDICATIONS: None MEDS HELD/DISCONTINUED: None REFERRALS MADE: None Patient Education Discussed: Patient educated on medication regimen, keeping follow-up appointments and s/s to report to provider and when to seek emergent care. Reviewed discharge instructions and medication list reconciled and updated. Patient educated on pain relief measures, constipation prevention, SBO, anemia and fall prevention. Scheduled GLENNY appt for 09/26/24 Jessie Mccloud RN documented in this encounter [facility] 09-17-2024 Note [facility] 09-12-2024 Telephone encounter Note Rx sent [facility] 09-12-2024 Miscellaneous Notes Rx sent Patient calls She said her left ear is painful. No seeping. No fever. Started today. She asked if something can be sent in. Thank you. [phone] documented in this encounter [facility] 09-11-2024 Telephone encounter Note Patient calls She said her left ear is painful. No seeping. No fever. Started today. She asked if something can be sent in. Thank you. [phone] [facility] 09-09-2024 Telephone encounter Note Prescription Refill Information The patient has been identified by name and date of : Yes Caregiver verified no other encounters exist for this prescription request: Yes Caregiver confirmed with patient/requestor that no other refills are due, in the near future, with this provider at this time: Yes The last office visit in the department: 09/03/2024 Does the patient have a future office visit with this provider/department: Yes Requested Prescriptions Pending Prescriptions Disp Refills warfarin (COUMADIN) 5 mg tablet [Pharmacy Med Name: warfarin 5 mg tablet] 30 tablet 5 Sig: Take 1 tablet by mouth once daily. Dorothy Wallace MA September 09, 2024 8:29 AM [facility] 09-09-2024 Miscellaneous Notes Prescription Refill Information The patient has been identified by name and date of : Yes Caregiver verified no other encounters exist for this prescription request: Yes Caregiver confirmed with patient/requestor that no other refills are due, in the near future, with this provider at this time: Yes The last office visit in the department: 09/03/2024 Does the patient have a future office visit with this provider/department: Yes Requested Prescriptions Pending Prescriptions Disp Refills warfarin (COUMADIN) 5 mg tablet [Pharmacy Med Name: warfarin 5 mg tablet] 30 tablet 5 Sig: Take 1 tablet by mouth once daily. Dorothy Wallace MA September 09, 2024 8:29 AM documented in this encounter [facility] 08-28-2024 Telephone encounter Note Patient calls today. Reason for Call: Kaitlyn called requesting a refill on alprazolam. She uses [facility] in [place] [phone] (home) [phone] (cell) Patient last appointment: 08/19/2024 Mari Platt [facility] 08-28-2024 Miscellaneous Notes Patient calls today. Reason for Call: Kaitlyn called requesting a refill on alprazolam. She uses [facility] in [place] [phone] (home) [phone] (cell) Patient last appointment: 08/19/2024 Mari Lc documented in this encounter [facility] 08-19-2024 Telephone encounter Note Faxed surgical clearance form to [facility]. Husam Grant MA [facility] 08-19-2024 Miscellaneous Notes Faxed surgical clearance form to [facility]. Husam Grant MA Patient is having 8/9 more teeth extracted. Form received requesting protocol on warfarin for the 8/9 more teeth extractions. Form put on Dr Dhaliwal desk. Sorry that they are requesting new form for extracting more teeth. Husam Grant MA She can stop it now. We do not have the paperwork as I had already filled it out and we had already advised via phone on how to address her meds and have already completed forms to that effect 08/11/24 an shredded the forms as duplicates in ERROR How many times do they request the form be completed? Dr Dhaliwal Summary: [facility] TO MENTION THAT PATIENT IS WISHING TO BE SCHEDULED FOR DENTAL PROCEDURE BY WEEK'S END. HER DENTIST WILL BE LEAVING BY WEEK'S END PATIENT WILL HAVE TO BE OFF BLOOD THINNERS VERY SOON IN ORDER TO BE SCHEDULED BEFORE HER DENTIST LEAVES. ASKING IF OFFICE CAN CALL [phone], OPTION 2 (ASK FOR BRISTON) TO ADVISE WHEN MEDICAL RELEASE PAPERWORK IS READY TO BE FAXED SO THAT PATIENT CAN BE SCHEDULED THANK YOU Patience Choi documented in this encounter [facility] 08-19-2024 Telephone encounter Note Patient is having 8/9 more teeth extracted. Form received requesting protocol on warfarin for the 8/9 more teeth extractions. Form put on Dr Dhaliwal desk. Sorry that they are requesting new form for extracting more teeth. Husam Grant MA [facility] 08-19-2024 Telephone encounter Note She can stop it now. We do not have the paperwork as I had already filled it out and we had already advised via phone on how to address her meds and have already completed forms to that effect 08/11/24 an shredded the forms as duplicates in ERROR How many times do they request the form be completed? Dr Dhaliwal [facility] 08-19-2024 Telephone encounter Note Summary: [facility] CALLED TO MENTION THAT PATIENT IS WISHING TO BE SCHEDULED FOR DENTAL PROCEDURE BY WEEK'S END. HER DENTIST WILL BE LEAVING BY WEEK'S END PATIENT WILL HAVE TO BE OFF BLOOD THINNERS VERY SOON IN ORDER TO BE SCHEDULED BEFORE HER DENTIST LEAVES. ASKING IF OFFICE CAN CALL [phone], OPTION 2 (ASK FOR BRISTON) TO ADVISE WHEN MEDICAL RELEASE PAPERWORK IS READY TO BE FAXED SO THAT PATIENT CAN BE SCHEDULED THANK YOU Patience Choi [facility] 08-12-2024 Telephone encounter Note Prescriptions sent to the pharmacy [facility] 08-12-2024 Miscellaneous Notes Prescriptions sent to the pharmacy Patient called in regards to wanting to increase her buspar and getting back on her iron. Could Dr Dhaliwal send in new prescription of iron and increase buspar? Please advise Husam Grant MA documented in this encounter [facility] 08-12-2024 Telephone encounter Note Patient called in regards to wanting to increase her buspar and getting back on her iron. Could Dr Dhaliwal send in new prescription of iron and increase buspar? Please advise Husam Grant MA [facility] 08-11-2024 Telephone encounter Note Patient called office in regards to be at the dentists office. Patient stated that she is getting a tooth extracted and has yanelis off the coumadin for a week. Dental assistant professor of biochemistry asked if a week was long enough for being off coumadin. Went back asked Dr Dhaliwal if a week is long enough to be off the coumadin and per Dr Dhaliwal yes. Informed dental assistant professor of biochemistry per Dr Dhaliwal yes a week is long enough to bee off coumadin. Dental assistant professor of biochemistry stated thank you. Husam Grant MA [facility] 08-11-2024 Miscellaneous Notes Patient called office in regards to be at the dentists office. Patient stated that she is getting a tooth extracted and has yanelis off the coumadin for a week. Dental assistant professor of biochemistry asked if a week was long enough for being off coumadin. Went back asked Dr Dhaliwal if a week is long enough to be off the coumadin and per Dr Dhaliwal yes. Informed dental assistant professor of biochemistry per Dr Dhaliwal yes a week is long enough to bee off coumadin. Dental assistant professor of biochemistry stated thank you. Husam Grant MA documented in this encounter [facility] 07-30-2024 Telephone encounter Note Called patient however no answer. Left message informing patient that Dr Dhaliwal said to go to the ER. Husam Grant MA [facility] 07-30-2024 Miscellaneous Notes Called patient however no answer. Left message informing patient that Dr Dhaliwal said to go to the ER. Husam Grant MA Patient calls today. Reason for Call: bilateral hand pain Patient calls the office today and states that she is having trouble picking up things. States it has gotten progessively worse over the past two weeks. From bending over, patient says she is now getting dizzy. It is both hands now and not just the right. 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 Asking for recommendations Please advise Thank you [phone] (home) [phone] (cell) Patient last appointment: 07/29/2024 Jasmin Garza documented in this encounter [facility] 07-30-2024 Telephone encounter Note Patient calls today. Reason for Call: bilateral hand pain Patient calls the office today and states that she is having trouble picking up things. States it has gotten progessively worse over the past two weeks. From bending over, patient says she is now getting dizzy. It is both hands now and not just the right. 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 Asking for recommendations Please advise Thank you [phone] (home) [phone] (cell) Patient last appointment: 07/29/2024 Jasminlakeisha Garza [facility] 07-29-2024 Telephone encounter Note Prescription Refill Information The patient has been identified by name and date of : Yes Caregiver verified no other encounters exist for this prescription request: Yes Caregiver confirmed with patient/requestor that no other refills are due, in the near future, with this provider at this time: Yes The last office visit in the department: 07/04/24 Does the patient have a future office visit with this provider/department: Yes Requested Prescriptions Pending Prescriptions Disp Refills ALPRAZolam (XANAX) 1 mg tablet 60 tablet 0 Sig: Take 1 tablet by mouth every 12 hours as needed for up to 30 days. citalopram (CELEXA) 20 mg tablet 30 tablet 1 Sig: Take 1 tablet by mouth once daily. Cinthia Rob July 29, 2024 8:16 AM [facility] 07-29-2024 Miscellaneous Notes Prescription Refill Information The patient has been identified by name and date of : Yes Caregiver verified no other encounters exist for this prescription request: Yes Caregiver confirmed with patient/requestor that no other refills are due, in the near future, with this provider at this time: Yes The last office visit in the department: 07/04/24 Does the patient have a future office visit with this provider/department: Yes Requested Prescriptions Pending Prescriptions Disp Refills ALPRAZolam (XANAX) 1 mg tablet 60 tablet 0 Sig: Take 1 tablet by mouth every 12 hours as needed for up to 30 days. citalopram (CELEXA) 20 mg tablet 30 tablet 1 Sig: Take 1 tablet by mouth once daily. Cinthia Rob July 29, 2024 8:16 AM documented in this encounter [facility] 07-12-2024 Note HNO ID: [id number] Author: KENTRELL DHALIWAL II, MD Service: ? Author Type: Physician Type: Progress Notes Filed: 07/12/2024 19:41 Note Text: Kentrell Dhaliwal II, MD Family [address], [place] [address] NOEMI Escobar is a 74 year old female who presents with Ear Problem (Pt states that a little over a week ago she woke up with severe ear pain, has taken the amoxicillin as Rx'ed, still having some bloody drainage. Pt has been using OTC Similasan Earache drops.). HPI Patient is in today for evaluation of pain in the left ear. She has been treated with topical treatment and oral antibiotics but she still having pain and discomfort and occasional bloody discharge from the ear so she went to come in and have it evaluated. Review of Systems Constitutional: Negative for activity change, appetite change, chills, diaphoresis, fatigue, fever and unexpected weight change. HENT: Positive for ear discharge and ear pain. Negative for congestion, dental problem, drooling, facial swelling, hearing loss, nosebleeds, postnasal drip, rhinorrhea, sinus pressure, sinus pain, sore throat, trouble swallowing and voice change. Eyes: Negative for discharge, redness and visual disturbance. Respiratory: Negative for apnea, cough, choking, chest tightness, shortness of breath, wheezing and stridor. Cardiovascular: Negative for chest pain, palpitations and leg swelling. Gastrointestinal: Negative for abdominal distention, abdominal pain, blood in stool, constipation, diarrhea, nausea and vomiting. Endocrine: Negative for cold intolerance, heat intolerance, polydipsia, polyphagia and polyuria. Genitourinary: Negative for decreased urine volume, difficulty urinating, dysuria, enuresis, frequency, hematuria and urgency. Musculoskeletal: Negative for arthralgias, gait problem and myalgias. Skin: Negative for color change, pallor, rash and wound. Allergic/Immunologic: Negative for environmental allergies. Neurological: Negative for dizziness, tremors, syncope, facial asymmetry, speech difficulty, weakness, light-headedness, numbness and headaches. Hematological: Negative for adenopathy. Does not bruise/bleed easily. Psychiatric/Behavioral: Negative for agitation, behavioral problems, confusion, decreased concentration, dysphoric mood, hallucinations, self-injury, sleep disturbance and suicidal ideas. The patient is not nervous/anxious and is not hyperactive. PAST MEDICAL HISTORY Diagnosis Date Anxiety and depression Diabetes (HCC) Drug-induced Parkinson's disease (HCC) GERD (gastroesophageal reflux disease) History of DVT (deep vein thrombosis) IBS (irritable bowel syndrome) Seizures (HCC) Small bowel obstruction (HCC) Tremor PAST SURGICAL HISTORY Procedure Laterality Date CHOLECYSTECTOMY HX COLON SURGERY HX HYSTERECTOMY HX ROTATOR CUFF REPAIR Left TONSILLECTOMY HX WRIST SURGERY HX Right Social History Tobacco Use Smoking status: Never Smokeless tobacco: Never Vaping Use Vaping status: Never Used Substance Use Topics Alcohol use: Not Currently Drug use: Never FAMILY HISTORY Problem Relation Age of Onset Emphysema Mother Heart disease Father The ROS, medical, surgical, family, and social history were reviewed by Kentrell Dhaliwal II, MD ALLERGIES Allergen Reactions Latex Anaphylaxis Abilify [Aripiprazo* Other: See Comments Muscles couldn't get up Codeine Diarrhea Compazine [Prochlor* Myalgia Levaquin [Levofloxa* Diarrhea Omnicef [Cefdinir] Diarrhea Prednisone GI Upset Propoxyphene Unknown Ooitemj-[id number]-[id number] Red* Diarrhea, Intolerance Sulfa (Sulfonamide * Other: See Comments Leg pain Shellfish Containin* Swelling Current Outpatient Medications Medication Sig zolpidem (AMBIEN) 10 mg Take 1 tablet by mouth at bedtime as needed for up to 90 days. ezetimibe (ZETIA) 10 mg tablet take 1 tablet by mouth once daily ALPRAZolam (XANAX) 1 mg tablet Take 1 tablet by mouth every 12 hours as needed for up to 30 days. naphazoline-pheniramine eye drops (NAPHCON-A) 0.025-0.3 % ophthalmic solution Use 2 Drops in the left eye every 6 hours as needed. ondansetron (ZOFRAN) 8 mg tablet Take 1 tablet by mouth every 8 hours as needed for nausea/vomiting. albuterol HFA (PROVENTIL HFA, VENTOLIN HFA) 90 mcg/actuation inhaler Inhale 2 Puffs as instructed every 6 hours as needed for wheezing/shortness of breath. promethazine (PHENERGAN) 25 mg tablet Take 1 tablet by mouth every 6 hours as needed. citalopram (CELEXA) 20 mg tablet Take 1 tablet by mouth once daily. levothyroxine (SYNTHROID) 50 mcg tablet Take 1 tablet by mouth once daily. omeprazole (PRILOSEC) 40 mg capsule Take 1 capsule by mouth once daily. busPIRone (BUSPAR) 15 mg tablet Take 0.5 tablets by mouth two times a day. (Patient taking differently: Take 7.5 mg by mouth two times a day. Pt has been taking a full tablet) rOPINIRole (REQ (more content not included)... [facility] 07-12-2024 History of Presen t illness Narrative Images from the original note were not included. Kentrell Dhaliwal II, MD [address], [place] [address] SUBJECTIVE Kaitlyn Escobar is a 74 year old female who presents with Ear Problem (Pt states that a little over a week ago she woke up with severe ear pain, has taken the amoxicillin as Rx'ed, still having some bloody drainage. Pt has been using OTC Similasan Earache drops.). HPI Patient is in today for evaluation of pain in the left ear. She has been treated with topical treatment and oral antibiotics but she still having pain and discomfort and occasional bloody discharge from the ear so she went to come in and have it evaluated. Review of Systems Constitutional: Negative for activity change, appetite change, chills, diaphoresis, fatigue, fever and unexpected weight change. HENT: Positive for ear discharge and ear pain. Negative for congestion, dental problem, drooling, facial swelling, hearing loss, nosebleeds, postnasal drip, rhinorrhea, sinus pressure, sinus pain, sore throat, trouble swallowing and voice change. Eyes: Negative for discharge, redness and visual disturbance. Respiratory: Negative for apnea, cough, choking, chest tightness, shortness of breath, wheezing and stridor. Cardiovascular: Negative for chest pain, palpitations and leg swelling. Gastrointestinal: Negative for abdominal distention, abdominal pain, blood in stool, constipation, diarrhea, nausea and vomiting. Endocrine: Negative for cold intolerance, heat intolerance, polydipsia, polyphagia and polyuria. Genitourinary: Negative for decreased urine volume, difficulty urinating, dysuria, enuresis, frequency, hematuria and urgency. Musculoskeletal: Negative for arthralgias, gait problem and myalgias. Skin: Negative for color change, pallor, rash and wound. Allergic/Immunologic: Negative for environmental allergies. Neurological: Negative for dizziness, tremors, syncope, facial asymmetry, speech difficulty, weakness, light-headedness, numbness and headaches. Hematological: Negative for adenopathy. Does not bruise/bleed easily. Psychiatric/Behavioral: Negative for agitation, behavioral problems, confusion, decreased concentration, dysphoric mood, hallucinations, self-injury, sleep disturbance and suicidal ideas. The patient is not nervous/anxious and is not hyperactive. PAST MEDICAL HISTORY Diagnosis Date Anxiety and depression Diabetes (HCC) Drug-induced Parkinson's disease (HCC) GERD (gastroesophageal reflux disease) History of DVT (deep vein thrombosis) IBS (irritable bowel syndrome) Seizures (HCC) Small bowel obstruction (HCC) Tremor PAST SURGICAL HISTORY Procedure Laterality Date CHOLECYSTECTOMY HX COLON SURGERY HX HYSTERECTOMY HX ROTATOR CUFF REPAIR Left TONSILLECTOMY HX WRIST SURGERY HX Right Social History Tobacco Use Smoking status: Never Smokeless tobacco: Never Vaping Use Vaping status: Never Used Substance Use Topics Alcohol use: Not Currently Drug use: Never FAMILY HISTORY Problem Relation Age of Onset Emphysema Mother Heart disease Father The ROS, medical, surgical, family, and social history were reviewed by Kentrell Dhaliwal II, MD ALLERGIES Allergen Reactions Latex Anaphylaxis Abilify [Aripiprazo* Other: See Comments Muscles couldn't get up Codeine Diarrhea Compazine [Prochlor* Myalgia Levaquin [Levofloxa* Diarrhea Omnicef [Cefdinir] Diarrhea Prednisone GI Upset Propoxyphene Unknown [id number] Red* Diarrhea, Intolerance Sulfa (Sulfonamide * Other: See Comments Leg pain Shellfish Containin* Swelling Current Outpatient Medications Medication Sig zolpidem (AMBIEN) 10 mg Take 1 tablet by mouth at bedtime as needed for up to 90 days. ezetimibe (ZETIA) 10 mg tablet take 1 tablet by mouth once daily ALPRAZolam (XANAX) 1 mg tablet Take 1 tablet by mouth every 12 hours as needed for up to 30 days. naphazoline-pheniramine eye drops (NAPHCON-A) 0.025-0.3 % ophthalmic solution Use 2 Drops in the left eye every 6 hours as needed. ondansetron (ZOFRAN) 8 mg tablet Take 1 tablet by mouth every 8 hours as needed for nausea/vomiting. albuterol HFA (PROVENTIL HFA, VENTOLIN HFA) 90 mcg/actuation inhaler Inhale 2 Puffs as instructed every 6 hours as needed for wheezing/shortness of breath. promethazine (PHENERGAN) 25 mg tablet Take 1 tablet by mouth every 6 hours as needed. citalopram (CELEXA) 20 mg tablet Take 1 tablet by mouth once daily. levothyroxine (SYNTHROID) 50 mcg tablet Take 1 tablet by mouth once daily. omeprazole (PRILOSEC) 40 mg capsule Take 1 capsule by mouth once daily. busPIRone (BUSPAR) 15 mg tablet Take 0.5 tablets by mouth two times a day. (Patient taking differently: Take 7.5 mg by mouth two times a day. Pt has been taking a full tablet) rOPINIRole (REQUIP) 0.5 mg tablet Take 1 tablet by mouth two times a day. clotrimazole-betamethasone (LOTRISONE) cream Apply to affected area two times a day. ferrous gluconate 236 mg (27 mg iron) tab Take 1 tablet by mouth once daily. (Patient taking differently: Take 1 tablet by mouth once daily. Causes constipation, has been taking every 3-4 days) warfarin (COUMADIN) 5 mg tablet Take 1 tablet by mouth once daily. ondansetron orally disintegrating (ZOFRAN ODT) 4 mg disintegrating tablet Take 1 tablet by mouth every 8 hours as needed for nausea/vomiting. dqxhmvpajj-kuwwmbfg-pdasrlquzw (BREZTRI AEROSPHERE) 160-9-4.8 mcg/actuation HFA aerosol inhaler Inhale 2 Puffs as instructed two times a day. hyoscyamine SR (LEVBID) 0.375 mg 12 hr tablet Take 1 tablet by mouth two times a day. dicyclomine (BENTYL) 20 mg tablet Take 1 tablet by mouth three times a day. ondansetron (ZOFRAN) 4 mg tablet Take 1 tablet by mouth every 6 hours as needed. docusate sodium (COLACE) 100 mg capsule Take 1 capsule by mouth twice daily. SF 5000 PLUS 1.1 % dental cream diphenoxylate-atropine (LOMOTIL) 2.5-0.025 mg per tablet Take 1 tablet by mouth four times a day as needed for up to 10 days. simethicone 250 mg cap Take 1 capsule by mouth three times a day. traMADol (ULTRAM) 50 mg tablet Take 1 tablet by mouth every 6 hours as needed. (Patient not taking: Reported on 07/04/2024) buPROPion XL (WELLBUTRIN XL) 150 mg 24 hr tablet Take 2 tablets by mouth once daily. (Patient not taking: Reported on 07/04/2024) cyclobenzaprine (FLEXERIL) 10 mg tablet Take 1 tablet by mouth three times daily as needed. (Patient not taking: Reported on 07/04/2024) No current facility-administered medications for this visit. OBJECTIVE BP 138/72 (BP Site: Right Arm, BP Position: Sitting) Pulse 66 Temp 36.3 C (97.3 F) (Temporal) Resp 16 Ht 154.9 cm (5' 1) Wt 60.4 kg (133 lb 3.2 oz) SpO2 99% BMI 25.17 kg/m BMI 25.17 kg/(m^2) Physical Exam Vitals and nursing note reviewed. Constitutional: General: She is not in acute distress. Appearance: Normal appearance. She is not ill-appearing, toxic-appearing or diaphoretic. HENT: Head: Normocephalic and atraumatic. Right Ear: Tympanic membrane, ear canal and external ear normal. There is no impacted cerumen. Left Ear: Tympanic membrane normal. There is no impacted cerumen. Ears: Comments: The left TM is clear. The left canal has scab on the floor of the canal but otherwise within normal limits. Nose: Nose normal. No congestion or rhinorrhea. Mouth/Throat: Mouth: Mucous membranes are moist. Pharynx: Oropharynx is clear. No oropharyngeal exudate or posterior oropharyngeal erythema. Eyes: General: No scleral icterus. Right eye: No discharge. Left eye: No discharge. Extraocular Movements: Extraocular movements intact. Conjunctiva/sclera: Conjunctivae normal. Pupils: Pupils are equal, round, and reactive to light. Neck: Vascular: No carotid bruit. Cardiovascular: Rate and Rhythm: Normal rate and regular rhythm. Pulses: Normal pulses. Heart sounds: Normal heart sounds. No murmur heard. No friction rub. No gallop. Pulmonary: Effort: Pulmonary effort is normal. No respiratory distress. Breath sounds: Normal breath sounds. No stridor. No wheezing, rhonchi or rales. Chest: Chest wall: No tenderness. Abdominal: General: Abdomen is flat. Bowel sounds are normal. There is no distension. Palpations: Abdomen is soft. There is no mass. Tenderness: There is no abdominal tenderness. There is no right CVA tenderness, left CVA tenderness, guarding or rebound. Hernia: No hernia is present. Musculoskeletal: General: No signs of injury. Cervical back: Normal range of motion and neck supple. No rigidity or tenderness. Comments: ROM and strength without significant changes from previous examinations and consistent with patient history Lymphadenopathy: Cervical: No cervical adenopathy. Skin: General: Skin is warm and dry. Capillary Refill: Capillary refill takes less than 2 seconds. Coloration: Skin is not jaundiced or pale. Findings: No erythema, lesion or rash. Neurological: General: No focal deficit present. Mental Status: She is alert and oriented to person, place, and time. Mental status is at baseline. Cranial Nerves: No cranial nerve deficit. Sensory: No sensory deficit. Motor: No weakness. Coordination: Coordination normal. Gait: Gait normal. Deep Tendon Reflexes: Reflexes normal. Psychiatric: Mood and Affect: Mood normal. Behavior: Behavior normal. Thought Content: Thought content normal. Judgment: Judgment normal. Labs: Hemoglobin (g/dL) Date Value 06/11/2024 12.2 11/23/2022 11.6 Hematocrit (%) Date Value 06/11/2024 37.1 11/23/2022 35.1 WBC Date Value 06/11/2024 8.86 k/uL 11/23/2022 7.8 x10(3) Platelet Count Date Value 06/11/2024 385 k/uL 11/23/2022 391 X10(3) Creatinine Date Value Ref Range Status 06/11/2024 1.13 (H) 0.58 - 0.96 mg/dL Final AST Date Value Ref Range Status 06/11/2024 27 13 - 35 U/L Final ALT Date Value Ref Range Status 06/11/2024 20 7 - 38 U/L Final Blood Culture (no units) Date Value 11/12/2021 XXX 11/12/2021 XXX Bilirubin, Total (mg/dL) Date Value 06/11/2024 0.3 Bilirubin, Direct (mg/dL) Date Value 06/11/2024 <0.2 Antibody Screen (no units) Date Value 04/01/2023 Negative WBC (k/uL) Date Value 06/11/2024 8.86 RBC (m/uL) Date Value 06/11/2024 3.98 %DIG,%DBS Plan ASSESSMENT/PLAN: 1. Acute otitis media, left - ICD9: 382.9, ICD10: H66.92 (primary diagnosis) I do feel that her otitis media is resolving. She is here to finish the oral medication and then update us in the next week or sooner if needed depending on her progress 2. Acute otitis externa of left ear, unspecified type - ICD9: 380.10, ICD10: H60.502 She is going to continue to use topical treatment with gentle application and we will plan on following up in 1 week or sooner if needed depending on her progress Kentrell Dhaliwal II, MD Follow up: No follow-ups on file. Kentrell Dhaliwal II, M.D. documented in this encounter [facility] 07-04-2024 Telephone encounter Note Prescription Refill Information The patient has been identified by name and date of : Yes Caregiver verified no other encounters exist for this prescription request: Yes Caregiver confirmed with patient/requestor that no other refills are due, in the near future, with this provider at this time: Yes The last office visit in the department: 06/11/2024 Does the patient have a future office visit with this provider/department: Yes Requested Prescriptions Pending Prescriptions Disp Refills zolpidem (AMBIEN) 10 mg [Pharmacy Med Name: zolpidem 10 mg tablet] 30 tablet 2 Sig: Take 1 tablet by mouth at bedtime as needed. Husam Grant MA July 04, 2024 8:09 AM [facility] 07-04-2024 Miscellaneous Notes Prescription Refill Information The patient has been identified by name and date of : Yes Caregiver verified no other encounters exist for this prescription request: Yes Caregiver confirmed with patient/requestor that no other refills are due, in the near future, with this provider at this time: Yes The last office visit in the department: 06/11/2024 Does the patient have a future office visit with this provider/department: Yes Requested Prescriptions Pending Prescriptions Disp Refills zolpidem (AMBIEN) 10 mg [Pharmacy Med Name: zolpidem 10 mg tablet] 30 tablet 2 Sig: Take 1 tablet by mouth at bedtime as needed. Husam Grant MA July 04, 2024 8:09 AM documented in this encounter [facility] 07-02-2024 Miscellaneous Notes Prescription Refill Information The patient has been identified by name and date of : Yes Caregiver verified no other encounters exist for this prescription request: Yes Caregiver confirmed with patient/requestor that no other refills are due, in the near future, with this provider at this time: Yes The last office visit in the department: 06/11/2024 Does the patient have a future office visit with this provider/department: Yes Requested Prescriptions Pending Prescriptions Disp Refills ezetimibe (ZETIA) 10 mg tablet [Pharmacy Med Name: ezetimibe 10 mg tablet] 30 tablet 3 Sig: take 1 tablet by mouth once daily Dorothy Wallace MA July 02, 2024 8:25 AM documented in this encounter [facility] 07-02-2024 Telephone encounter Note Prescription Refill Information The patient has been identified by name and date of : Yes Caregiver verified no other encounters exist for this prescription request: Yes Caregiver confirmed with patient/requestor that no other refills are due, in the near future, with this provider at this time: Yes The last office visit in the department: 06/11/2024 Does the patient have a future office visit with this provider/department: Yes Requested Prescriptions Pending Prescriptions Disp Refills ezetimibe (ZETIA) 10 mg tablet [Pharmacy Med Name: ezetimibe 10 mg tablet] 30 tablet 3 Sig: take 1 tablet by mouth once daily Dorothy Wallace MA July 02, 2024 8:25 AM [facility] 06-30-2024 Telephone encounter Note Patient called in today. She wanted to let Dr. Dhaliwal know she is doing much better. Thank you. [facility] 06-30-2024 Miscellaneous Notes Patient called in today. She wanted to let Dr. Dhaliwal know she is doing much better. Thank you. Patient called into office due to her right ear hurting. Patient stated that she hs right ear infection and lymph nodes under her jaw are swollen. Patient stated right ear is not bleeding but wishes it would so she can get out of pain. Patient stated that she is in severe pain and has been taking tylenol. Informed patient to go to ER because she was not sure when she would be able to come into office. Informed that asa her niece gets home to have her take her to the ER. Patient stated that she will do that. Husam Grant MA Neosporin and Cotton ball. To ER if worse Called patient and informed that Dr Dhaliwal sent in prescriptions for her. Patient stated that she was getting an ear ache and left ear felt clogged. Patient stated she took a hot shower to help unclog her left ear. Patient stated that he left ear started bleeding. Patient is wondering what she needs to do for her left ear bleeding? Please advise Husam Grant MA Rx sent Patient called and wanted to add extreme ear pain and bleeding to her left ear and now can not hear out of it and now to the message below. Thank you. Patient calls today. Reason for Call: stating that her left eye has been burning, the corner of the eye is sore,her eye itches and has drainage. She denies any discoloration (red/pink)to the eye or being matted shut, onset 4-5 days. She is asking if there is something that she can take over the counter or something that you can prescribe to her for this? Please Advise Thank you [phone] (home) [phone] (cell) Patient last appointment: 06/14/2024 Kaylee Palomares documented in this encounter [facility] 06-30-2024 Telephone encounter Note Prescription Refill Information The patient has been identified by name and date of : Yes Caregiver verified no other encounters exist for this prescription request: Yes Caregiver confirmed with patient/requestor that no other refills are due, in the near future, with this provider at this time: Yes The last office visit in the department: 06/11/24 Does the patient have a future office visit with this provider/department: Yes Requested Prescriptions Pending Prescriptions Disp Refills ALPRAZolam (XANAX) 1 mg tablet 60 tablet 0 Sig: Take 1 tablet by mouth every 12 hours as needed for up to 30 days. Patient said she only has 1 left for tonight. Thank you. Cinthia Rob June 30, 2024 11:32 AM [facility] 06-30-2024 Miscellaneous Notes Prescription Refill Information The patient has been identified by name and date of : Yes Caregiver verified no other encounters exist for this prescription request: Yes Caregiver confirmed with patient/requestor that no other refills are due, in the near future, with this provider at this time: Yes The last office visit in the department: 06/11/24 Does the patient have a future office visit with this provider/department: Yes Requested Prescriptions Pending Prescriptions Disp Refills ALPRAZolam (XANAX) 1 mg tablet 60 tablet 0 Sig: Take 1 tablet by mouth every 12 hours as needed for up to 30 days. Patient said she only has 1 left for tonight. Thank you. Cinthia Rob June 30, 2024 11:32 AM documented in this encounter [facility] 06-26-2024 Telephone encounter Note Patient called into office due to her right ear hurting. Patient stated that she hs right ear infection and lymph nodes under her jaw are swollen. Patient stated right ear is not bleeding but wishes it would so she can get out of pain. Patient stated that she is in severe pain and has been taking tylenol. Informed patient to go to ER because she was not sure when she would be able to come into office. Informed that asa her niece gets home to have her take her to the ER. Patient stated that she will do that. Husam Grant MA [facility] 06-25-2024 Telephone encounter Note Neosporin and Cotton ball. To ER if worse [facility] 06-25-2024 Telephone encounter Note Called patient and informed that Dr Dhaliwal sent in prescriptions for her. Patient stated that she was getting an ear ache and left ear felt clogged. Patient stated she took a hot shower to help unclog her left ear. Patient stated that he left ear started bleeding. Patient is wondering what she needs to do for her left ear bleeding? Please advise Husam Grant MA [facility] 06-25-2024 Telephone encounter Note Rx sent T [facility] 06-25-2024 Telephone encounter Note Patient called and wanted to add extreme ear pain and bleeding to her left ear and now can not hear out of it and now to the message below. Thank you. T [facility] 06-25-2024 Telephone encounter Note Patient calls today. Reason for Call: stating that her left eye has been burning, the corner of the eye is sore,her eye itches and has drainage. She denies any discoloration (red/pink)to the eye or being matted shut, onset 4-5 days. She is asking if there is something that she can take over the counter or something that you can prescribe to her for this? Please Advise Thank you [phone] (home) [phone] (cell) Patient last appointment: 06/14/2024 Kaylee Paloma[facility] 06-16-2024 Telephone encounter Note Prescription Refill Information The patient has been identified by name and date of : Yes Caregiver verified no other encounters exist for this prescription request: Yes Caregiver confirmed with patient/requestor that no other refills are due, in the near future, with this provider at this time: Yes The last office visit in the department: 06/11/2024 Does the patient have a future office visit with this provider/department: Yes Requested Prescriptions Pending Prescriptions Disp Refills ondansetron (ZOFRAN) 8 mg tablet [Pharmacy Med Name: ondansetron HCl 8 mg tablet] 30 tablet 3 Sig: Take 1 tablet by mouth every 8 hours as needed for nausea/vomiting. albuterol HFA (PROVENTIL HFA, VENTOLIN HFA) 90 mcg/actuation inhaler [Pharmacy Med Name: albuterol sulfate HFA 90 mcg/actuation aerosol inhaler] 18 g 0 Sig: Inhale 2 Puffs as instructed every 6 hours as needed for wheezing/shortness of breath. Husam Grant MA June 16, 2024 8:12 AM [facility] 06-16-2024 Miscellaneous Notes Prescription Refill Information The patient has been identified by name and date of : Yes Caregiver verified no other encounters exist for this prescription request: Yes Caregiver confirmed with patient/requestor that no other refills are due, in the near future, with this provider at this time: Yes The last office visit in the department: 06/11/2024 Does the patient have a future office visit with this provider/department: Yes Requested Prescriptions Pending Prescriptions Disp Refills ondansetron (ZOFRAN) 8 mg tablet [Pharmacy Med Name: ondansetron HCl 8 mg tablet] 30 tablet 3 Sig: Take 1 tablet by mouth every 8 hours as needed for nausea/vomiting. albuterol HFA (PROVENTIL HFA, VENTOLIN HFA) 90 mcg/actuation inhaler [Pharmacy Med Name: albuterol sulfate HFA 90 mcg/actuation aerosol inhaler] 18 g 0 Sig: Inhale 2 Puffs as instructed every 6 hours as needed for wheezing/shortness of breath. Husam Grant MA June 16, 2024 8:12 AM documented in this encounter [facility] 06-13-2024 Telephone encounter Note Called patient however no answer. Left message informing patient that labs are in acceptable ranges. Informed to recheck in 6 months or sooner if needed. Husam Grant MA [facility] 06-13-2024 Telephone encounter Note ----- Message from Kentrell Dhaliwal MD sent at 06/12/2024 5:28 PM EDT ----- Labs are acceptable ranges. Recheck labs in 6 months or sooner if needed. [facility] 06-13-2024 Miscellaneous Notes Called patient however no answer. Left message informing patient that labs are in acceptable ranges. Informed to recheck in 6 months or sooner if needed. Husam Grant MA ----- Message from Kentrell Dhaliwal MD sent at 06/12/2024 5:28 PM EDT ----- Labs are acceptable ranges. Recheck labs in 6 months or sooner if needed. documented in this encounter [facility] 06-11-2024 Note HNO ID: [id number] Author: KENTRELL DHALIWAL II, MD Service: ? Author Type: Physician Type: Progress Notes Filed: 06/14/2024 21:10 Note Text: Kentrell Dhaliwal II, MD [address], [place] [address] SUBJECTIVE Kaitlyn Escobar is a 74 year old female who presents with Follow Up (3 month follow up. Pt states that she is having breathing issues. Using all of her inhalers. Pt stated that the time is coming that she will need to go [facility] the [facility]. Pt needing refills. Pt would like to discuss antidepressant. ). HPI The patient is in today to follow-up her chronic problems. She states she is still under a lot of stress with her daughter having issues with alcoholism and this does tend to flareup her gastrointestinal issues when she receives bad news. She would like to have some refills on medication to use as needed and she is due for some routine blood work. Review of Systems Constitutional: Negative for activity change, appetite change, chills, diaphoresis, fatigue, fever and unexpected weight change. HENT: Negative for congestion, dental problem, ear pain, hearing loss, nosebleeds, postnasal drip, rhinorrhea, sinus pressure, sinus pain, sore throat, trouble swallowing and voice change. Eyes: Negative for discharge, redness and visual disturbance. Respiratory: Negative for apnea, cough, choking, chest tightness, shortness of breath, wheezing and stridor. Cardiovascular: Negative for chest pain, palpitations and leg swelling. Gastrointestinal: Negative for abdominal distention, abdominal pain, blood in stool, constipation, diarrhea, nausea and vomiting. Endocrine: Negative for cold intolerance, heat intolerance, polydipsia, polyphagia and polyuria. Genitourinary: Negative for decreased urine volume, difficulty urinating, dysuria, enuresis, frequency, hematuria and urgency. Musculoskeletal: Negative for arthralgias, gait problem and myalgias. Skin: Negative for color change, pallor, rash and wound. Allergic/Immunologic: Negative for environmental allergies. Neurological: Negative for dizziness, tremors, syncope, facial asymmetry, speech difficulty, weakness, light-headedness, numbness and headaches. Hematological: Negative for adenopathy. Does not bruise/bleed easily. Psychiatric/Behavioral: Negative for agitation, behavioral problems, confusion, decreased concentration, dysphoric mood, hallucinations, self-injury, sleep disturbance and suicidal ideas. The patient is not nervous/anxious and is not hyperactive. PAST MEDICAL HISTORY Diagnosis Date Anxiety and depression Diabetes (HCC) Drug-induced Parkinson's disease (HCC) GERD (gastroesophageal reflux disease) History of DVT (deep vein thrombosis) IBS (irritable bowel syndrome) Seizures (HCC) Small bowel obstruction (HCC) Tremor PAST SURGICAL HISTORY Procedure Laterality Date CHOLECYSTECTOMY HX COLON SURGERY HX HYSTERECTOMY HX ROTATOR CUFF REPAIR Left TONSILLECTOMY HX WRIST SURGERY HX Right Social History Tobacco Use Smoking status: Never Smokeless tobacco: Never Vaping Use Vaping status: Never Used Substance Use Topics Alcohol use: Not Currently Drug use: Never FAMILY HISTORY Problem Relation Age of Onset Emphysema Mother Heart disease Father The ROS, medical, surgical, family, and social history were reviewed by Kentrell Dhaliwal II, MD ALLERGIES Allergen Reactions Latex Anaphylaxis Abilify [Aripiprazo* Other: See Comments Muscles couldn't get up Codeine Diarrhea Compazine [Prochlor* Myalgia Levaquin [Levofloxa* Diarrhea Omnicef [Cefdinir] Diarrhea Prednisone GI Upset Propoxyphene Unknown [id number] Red* Diarrhea, Intolerance Sulfa (Sulfonamide * Other: See Comments Leg pain Shellfish Containin* Swelling Current Outpatient Medications Medication Sig ALPRAZolam (XANAX) 1 mg tablet Take 1 tablet by mouth every 12 hours as needed for up to 30 days. levothyroxine (SYNTHROID) 50 mcg tablet Take 1 tablet by mouth once daily. omeprazole (PRILOSEC) 40 mg capsule Take 1 capsule by mouth once daily. zolpidem (AMBIEN) 10 mg Take 1 tablet by mouth at bedtime as neede for Insomnia busPIRone (BUSPAR) 15 mg tablet Take 0.5 tablets by mouth two times a day. rOPINIRole (REQUIP) 0.5 mg tablet Take 1 tablet by mouth two times a day. clotrimazole-betamethasone (LOTRISONE) cream Apply to affected area two times a day. ferrous gluconate 236 mg (27 mg iron) tab Take 1 tablet by mouth once daily. diphenoxylate-atropine (LOMOTIL) 2.5-0.025 mg per tablet Take 1 tablet by mouth four times a day as needed for up to 10 days. warfarin (COUMADIN) 5 mg tablet Take 1 tablet by mouth once daily. ondansetron (ZOFRAN) 8 mg tablet Take 1 tablet by mouth every 8 hours as needed for nausea/vomiting. ondansetron orally disintegrating (ZOFRAN ODT) 4 mg disintegrating tablet Take 1 tablet by mouth every 8 hours as needed for nause (more content not included)... [facility] 06-11-2024 History of Presen t illness Narrative Images from the original note were not included. Kentrell Dhaliwal II, MD [address], [address] [place] [id number] SUBJECTIVE Kaitlyn Escobar is a 74 year old female who presents with Follow Up (3 month follow up. Pt states that she is having breathing issues. Using all of her inhalers. Pt stated that the time is coming that she will need to go to the penitentiary. Pt needing refills. Pt would like to discuss antidepressant. ). HPI The patient is in today to follow-up her chronic problems. She states she is still under a lot of stress with her daughter having issues with alcoholism and this does tend to flareup her gastrointestinal issues when she receives bad news. She would like to have some refills on medication to use as needed and she is due for some routine blood work. Review of Systems Constitutional: Negative for activity change, appetite change, chills, diaphoresis, fatigue, fever and unexpected weight change. HENT: Negative for congestion, dental problem, ear pain, hearing loss, nosebleeds, postnasal drip, rhinorrhea, sinus pressure, sinus pain, sore throat, trouble swallowing and voice change. Eyes: Negative for discharge, redness and visual disturbance. Respiratory: Negative for apnea, cough, choking, chest tightness, shortness of breath, wheezing and stridor. Cardiovascular: Negative for chest pain, palpitations and leg swelling. Gastrointestinal: Negative for abdominal distention, abdominal pain, blood in stool, constipation, diarrhea, nausea and vomiting. Endocrine: Negative for cold intolerance, heat intolerance, polydipsia, polyphagia and polyuria. Genitourinary: Negative for decreased urine volume, difficulty urinating, dysuria, enuresis, frequency, hematuria and urgency. Musculoskeletal: Negative for arthralgias, gait problem and myalgias. Skin: Negative for color change, pallor, rash and wound. Allergic/Immunologic: Negative for environmental allergies. Neurological: Negative for dizziness, tremors, syncope, facial asymmetry, speech difficulty, weakness, light-headedness, numbness and headaches. Hematological: Negative for adenopathy. Does not bruise/bleed easily. Psychiatric/Behavioral: Negative for agitation, behavioral problems, confusion, decreased concentration, dysphoric mood, hallucinations, self-injury, sleep disturbance and suicidal ideas. The patient is not nervous/anxious and is not hyperactive. PAST MEDICAL HISTORY Diagnosis Date Anxiety and depression Diabetes (HCC) Drug-induced Parkinson's disease (HCC) GERD (gastroesophageal reflux disease) History of DVT (deep vein thrombosis) IBS (irritable bowel syndrome) Seizures (HCC) Small bowel obstruction (HCC) Tremor PAST SURGICAL HISTORY Procedure Laterality Date CHOLECYSTECTOMY HX COLON SURGERY HX HYSTERECTOMY HX ROTATOR CUFF REPAIR Left TONSILLECTOMY HX WRIST SURGERY HX Right Social History Tobacco Use Smoking status: Never Smokeless tobacco: Never Vaping Use Vaping status: Never Used Substance Use Topics Alcohol use: Not Currently Drug use: Never FAMILY HISTORY Problem Relation Age of Onset Emphysema Mother Heart disease Father The ROS, medical, surgical, family, and social history were reviewed by Kentrell Dhaliwal II, MD ALLERGIES Allergen Reactions Latex Anaphylaxis Abilify [Aripiprazo* Other: See Comments Muscles couldn't get up Codeine Diarrhea Compazine [Prochlor* Myalgia Levaquin [Levofloxa* Diarrhea Omnicef [Cefdinir] Diarrhea Prednisone GI Upset Propoxyphene Unknown Phdmgqx-[id number] Red* Diarrhea, Intolerance Sulfa (Sulfonamide * Other: See Comments Leg pain Shellfish Containin* Swelling Current Outpatient Medications Medication Sig ALPRAZolam (XANAX) 1 mg tablet Take 1 tablet by mouth every 12 hours as needed for up to 30 days. levothyroxine (SYNTHROID) 50 mcg tablet Take 1 tablet by mouth once daily. omeprazole (PRILOSEC) 40 mg capsule Take 1 capsule by mouth once daily. zolpidem (AMBIEN) 10 mg Take 1 tablet by mouth at bedtime as neede for Insomnia busPIRone (BUSPAR) 15 mg tablet Take 0.5 tablets by mouth two times a day. rOPINIRole (REQUIP) 0.5 mg tablet Take 1 tablet by mouth two times a day. clotrimazole-betamethasone (LOTRISONE) cream Apply to affected area two times a day. ferrous gluconate 236 mg (27 mg iron) tab Take 1 tablet by mouth once daily. diphenoxylate-atropine (LOMOTIL) 2.5-0.025 mg per tablet Take 1 tablet by mouth four times a day as needed for up to 10 days. warfarin (COUMADIN) 5 mg tablet Take 1 tablet by mouth once daily. ondansetron (ZOFRAN) 8 mg tablet Take 1 tablet by mouth every 8 hours as needed for nausea/vomiting. ondansetron orally disintegrating (ZOFRAN ODT) 4 mg disintegrating tablet Take 1 tablet by mouth every 8 hours as needed for nausea/vomiting. yvddljbqmt-wjmaavxd-yupbvrlggn (BREZTRI AEROSPHERE) 160-9-4.8 mcg/actuation HFA aerosol inhaler Inhale 2 Puffs as instructed two times a day. albuterol HFA (PROVENTIL HFA, VENTOLIN HFA) 90 mcg/actuation inhaler Inhale 2 Puffs as instructed every 6 hours as needed for wheezing/shortness of breath. simethicone 250 mg cap Take 1 capsule by mouth three times a day. hyoscyamine SR (LEVBID) 0.375 mg 12 hr tablet Take 1 tablet by mouth two times a day. dicyclomine (BENTYL) 20 mg tablet Take 1 tablet by mouth three times a day. ondansetron (ZOFRAN) 4 mg tablet Take 1 tablet by mouth every 6 hours as needed. traMADol (ULTRAM) 50 mg tablet Take 1 tablet by mouth every 6 hours as needed. buPROPion XL (WELLBUTRIN XL) 150 mg 24 hr tablet Take 2 tablets by mouth once daily. ezetimibe (ZETIA) 10 mg tablet Take 1 tablet by mouth once daily. cyclobenzaprine (FLEXERIL) 10 mg tablet Take 1 tablet by mouth three times daily as needed. docusate sodium (COLACE) 100 mg capsule Take 1 capsule by mouth twice daily. SF 5000 PLUS 1.1 % dental cream promethazine (PHENERGAN) 25 mg tablet Take 1 tablet by mouth every 6 hours as needed. citalopram (CELEXA) 20 mg tablet Take 1 tablet by mouth once daily. No current facility-administered medications for this visit. OBJECTIVE BP 158/80 (BP Site: Left Arm, BP Position: Sitting, BP Cuff Size: Regular Adult) Pulse 90 Temp 36.3 C (97.3 F) Ht 154.9 cm (5' 1) Wt 57.8 kg (127 lb 6.4 oz) SpO2 99% BMI 24.07 kg/m BMI 24.07 kg/(m^2) Physical Exam Vitals and nursing note reviewed. Constitutional: General: She is not in acute distress. Appearance: Normal appearance. She is not ill-appearing, toxic-appearing or diaphoretic. HENT: Head: Normocephalic and atraumatic. Right Ear: Tympanic membrane, ear canal and external ear normal. There is no impacted cerumen. Left Ear: Tympanic membrane, ear canal and external ear normal. There is no impacted cerumen. Nose: Nose normal. No congestion or rhinorrhea. Mouth/Throat: Mouth: Mucous membranes are moist. Pharynx: Oropharynx is clear. No oropharyngeal exudate or posterior oropharyngeal erythema. Eyes: General: No scleral icterus. Right eye: No discharge. Left eye: No discharge. Extraocular Movements: Extraocular movements intact. Conjunctiva/sclera: Conjunctivae normal. Pupils: Pupils are equal, round, and reactive to light. Neck: Vascular: No carotid bruit. Cardiovascular: Rate and Rhythm: Normal rate and regular rhythm. Pulses: Normal pulses. Heart sounds: Normal heart sounds. No murmur heard. No friction rub. No gallop. Pulmonary: Effort: Pulmonary effort is normal. No respiratory distress. Breath sounds: Normal breath sounds. No stridor. No wheezing, rhonchi or rales. Chest: Chest wall: No tenderness. Abdominal: General: Abdomen is flat. Bowel sounds are normal. There is no distension. Palpations: Abdomen is soft. There is no mass. Tenderness: There is no abdominal tenderness. There is no right CVA tenderness, left CVA tenderness, guarding or rebound. Hernia: No hernia is present. Musculoskeletal: General: No signs of injury. Cervical back: Normal range of motion and neck supple. No rigidity or tenderness. Comments: ROM and strength without significant changes from previous examinations and consistent with patient history Lymphadenopathy: Cervical: No cervical adenopathy. Skin: General: Skin is warm and dry. Capillary Refill: Capillary refill takes less than 2 seconds. Coloration: Skin is not jaundiced or pale. Findings: No erythema, lesion or rash. Neurological: General: No focal deficit present. Mental Status: She is alert and oriented to person, place, and time. Mental status is at baseline. Cranial Nerves: No cranial nerve deficit. Sensory: No sensory deficit. Motor: No weakness. Coordination: Coordination normal. Gait: Gait normal. Deep Tendon Reflexes: Reflexes normal. Psychiatric: Mood and Affect: Mood normal. Behavior: Behavior normal. Thought Content: Thought content normal. Judgment: Judgment normal. Labs: Hemoglobin (g/dL) Date Value 11/28/2023 10.3 11/23/2022 11.6 Hematocrit (%) Date Value 11/28/2023 31.5 11/23/2022 35.1 WBC Date Value 11/28/2023 10.03 k/uL 11/23/2022 7.8 x10(3) Platelet Count Date Value 11/28/2023 444 k/uL 11/23/2022 391 X10(3) Creatinine Date Value Ref Range Status 11/28/2023 1.22 (H) 0.58 - 0.96 mg/dL Final AST Date Value Ref Range Status 11/28/2023 23 13 - 35 U/L Final ALT Date Value Ref Range Status 11/28/2023 15 7 - 38 U/L Final Blood Culture (no units) Date Value 11/12/2021 XXX 11/12/2021 XXX Bilirubin, Total (mg/dL) Date Value 11/28/2023 0.3 Bilirubin, Direct (mg/dL) Date Value 11/28/2023 <0.2 Antibody Screen (no units) Date Value 04/01/2023 Negative WBC (k/uL) Date Value 11/28/2023 10.03 RBC (m/uL) Date Value 11/28/2023 3.71 (L) %DIG,%DBS Plan ASSESSMENT/PLAN: 1. Gastroesophageal reflux disease, unspecified whether esophagitis present - ICD9: 530.81, ICD10: K21.9 (primary diagnosis) Clinically stable. Continue same medication and treatment. Follow up in 3 to 6 months or sooner if needed. - COMPLETE BLOOD COUNT - BASIC METABOLIC PANEL - HEPATIC FUNCTION PNL - THYROID STIMULATING HORMONE - VITAMIN D 25 HYDROXY - MAGNESIUM 2. Anxiety and depression - ICD9: 300.00, 311, ICD10: F41.9, F32.A Clinically stable. Continue same medication and treatment. Follow up in 3 to 6 months or sooner if needed. - COMPLETE BLOOD COUNT - BASIC METABOLIC PANEL - HEPATIC FUNCTION PNL - THYROID STIMULATING HORMONE - VITAMIN D 25 HYDROXY - MAGNESIUM 3. Chronic insomnia - ICD9: 780.52, ICD10: F51.04 Clinically stable. Continue same medication and treatment. Follow up in 3 to 6 months or sooner if needed. - COMPLETE BLOOD COUNT - BASIC METABOLIC PANEL - HEPATIC FUNCTION PNL - THYROID STIMULATING HORMONE - VITAMIN D 25 HYDROXY - MAGNESIUM 4. Hypothyroidism, acquired - ICD9: 244.9, ICD10: E03.9 - Instructed patient on importance of taking on an empty stomach either first thing in the morning or at bedtime. - check TSH today, in 3 months, and in 6 months - continue current dose of Synthroid - Follow up in 6 months - COMPLETE BLOOD COUNT - BASIC METABOLIC PANEL - HEPATIC FUNCTION PNL - THYROID STIMULATING HORMONE - VITAMIN D 25 HYDROXY - MAGNESIUM 5. Iron deficiency anemia, unspecified iron deficiency anemia type - ICD9: 280.9, ICD10: D50.9 Check labs and follow-up with results and recommendations as indicated when available. - COMPLETE BLOOD COUNT - BASIC METABOLIC PANEL - HEPATIC FUNCTION PNL - THYROID STIMULATING HORMONE - VITAMIN D 25 HYDROXY - MAGNESIUM - IRON AND TIBC 6. Nausea - ICD9: 787.02, ICD10: R11.0 Clinically stable. Continue same medication and treatment. Follow up in 3 to 6 months or sooner if needed. - COMPLETE BLOOD COUNT - BASIC METABOLIC PANEL - HEPATIC FUNCTION PNL - THYROID STIMULATING HORMONE - VITAMIN D 25 HYDROXY - PROMETHAZINE 25 MG TABLET - MAGNESIUM 7. Vitamin D deficiency - ICD9: 268.9, ICD10: E55.9 Check labs and follow-up with results and recommendations as indicated when available. - COMPLETE BLOOD COUNT - BASIC METABOLIC PANEL - HEPATIC FUNCTION PNL - THYROID STIMULATING HORMONE - VITAMIN D 25 HYDROXY - MAGNESIUM Kentrell Dhaliwal II, MD Follow up: No follow-ups on file. Kentrell Dhaliwal II, M.D. documented in this encounter [facility] 05-30-2024 Telephone encounter Note Prescription Refill Information The patient has been identified by name and date of : Yes Caregiver verified no other encounters exist for this prescription request: Yes Caregiver confirmed with patient/requestor that no other refills are due, in the near future, with this provider at this time: Yes The last office visit in the department: Does the patient have a future office visit with this provider/department: Yes Requested Prescriptions Pending Prescriptions Disp Refills ALPRAZolam (XANAX) 1 mg tablet 60 tablet 0 Sig: Take 1 tablet by mouth every 12 hours as needed for up to 30 days. levothyroxine (SYNTHROID) 50 mcg tablet 90 tablet 1 Sig: Take 1 tablet by mouth once daily. Patient is aware that you are out of the office, okay to wait until Sunday. Kaylee Palomares May 30, 2024 4:27 PM [facility] 05-30-2024 Miscellaneous Notes Prescription Refill Information The patient has been identified by name and date of : Yes Caregiver verified no other encounters exist for this prescription request: Yes Caregiver confirmed with patient/requestor that no other refills are due, in the near future, with this provider at this time: Yes The last office visit in the department: Does the patient have a future office visit with this provider/department: Yes Requested Prescriptions Pending Prescriptions Disp Refills ALPRAZolam (XANAX) 1 mg tablet 60 tablet 0 Sig: Take 1 tablet by mouth every 12 hours as needed for up to 30 days. levothyroxine (SYNTHROID) 50 mcg tablet 90 tablet 1 Sig: Take 1 tablet by mouth once daily. Patient is aware that you are out of the office, okay to wait until Sunday. Kaylee Palomares May 30, 2024 4:27 PM documented in this encounter [facility] 05-29-2024 Telephone encounter Note Prescription Refill Information The patient has been identified by name and date of : Yes Caregiver verified no other encounters exist for this prescription request: Yes Caregiver confirmed with patient/requestor that no other refills are due, in the near future, with this provider at this time: Yes The last office visit in the department: 01/02/2024 Does the patient have a future office visit with this provider/department: Yes Requested Prescriptions Pending Prescriptions Disp Refills promethazine (PHENERGAN) 25 mg tablet [Pharmacy Med Name: promethazine 25 mg tablet] 30 tablet 5 Sig: Take 1 tablet by mouth every 6 hours as needed. Husam Grant MA May 29, 2024 8:39 AM [facility] 05-29-2024 Miscellaneous Notes Prescription Refill Information The patient has been identified by name and date of : Yes Caregiver verified no other encounters exist for this prescription request: Yes Caregiver confirmed with patient/requestor that no other refills are due, in the near future, with this provider at this time: Yes The last office visit in the department: 01/02/2024 Does the patient have a future office visit with this provider/department: Yes Requested Prescriptions Pending Prescriptions Disp Refills promethazine (PHENERGAN) 25 mg tablet [Pharmacy Med Name: promethazine 25 mg tablet] 30 tablet 5 Sig: Take 1 tablet by mouth every 6 hours as needed. Husam Grant MA May 29, 2024 8:39 AM documented in this encounter [facility] 05-07-2024 Telephone encounter Note Patient returned call to the office. She was advised of appointment date and time. She said she was all ready for appointment today and she sat down on her bed and fell back to sleep. [facility] 05-07-2024 Miscellaneous Notes Patient returned call to the office. She was advised of appointment date and time. She said she was all ready for appointment today and she sat down on her bed and fell back to sleep. RESCHEDULED PATIENT TO 06/11/24 @ 10:00 AM, LEFT MESSAGE ON PATIENT'S VOICEMAIL TO ADVISE Patience Choi Daughter Rosario called back to see if patient has checked in, still can't get a hold of patient. Per Ulises at office she has not. Daughter advised. Patients joey Ponce called today. Reason for Call: stated she has been calling her Mom to make sure she got up for her appointment and didn't get an answer. Rosario stated her Mom may have left her phone at home and is requesting a call back when patient gets to office . Patients daughter lives 12 hours away. Appointment is today at 9:20 am Rosario call back [phone] Thank you [phone] (home) [phone] (cell) Patient last appointment: 05/01/2024 Kavya Argueta documented in this encounter [facility] 05-07-2024 Telephone encounter Note RESCHEDULED PATIENT TO 06/11/24 @ 10:00 AM, LEFT MESSAGE ON PATIENT'S VOICEMAIL TO ADVISE Patience Choi [facility] 05-07-2024 Telephone encounter Note Daughter Rosario called back to see if patient has checked in, still can't get a hold of patient. Per Ulises at office she has not. Daughter advised. [facility] 05-07-2024 Telephone encounter Note Patients daughter Rosario called today. Reason for Call: stated she has been calling her Mom to make sure she got up for her appointment and didn't get an answer. Rosario stated her Mom may have left her phone at home and is requesting a call back when patient gets to office . Patients daughter lives 12 hours away. Appointment is today at 9:20 am Rosario call back [phone] Thank you [phone] (home) [phone] (cell) Patient last appointment: 05/01/2024 Kavya Argueta [facility] 05-01-2024 Telephone encounter Note Prescription Refill Information The patient has been identified by name and date of : Yes Caregiver verified no other encounters exist for this prescription request: Yes Caregiver confirmed with patient/requestor that no other refills are due, in the near future, with this provider at this time: Yes The last office visit in the department: 01/02/2024 Does the patient have a future office visit with this provider/department: Yes Requested Prescriptions Pending Prescriptions Disp Refills ALPRAZolam (XANAX) 1 mg tablet 60 tablet 0 Sig: Take 1 tablet by mouth every 12 hours as needed for up to 30 days. Kaylee Palomares May 01, 2024 11:53 AM [facility] 05-01-2024 Miscellaneous Notes Prescription Refill Information The patient has been identified by name and date of : Yes Caregiver verified no other encounters exist for this prescription request: Yes Caregiver confirmed with patient/requestor that no other refills are due, in the near future, with this provider at this time: Yes The last office visit in the department: 01/02/2024 Does the patient have a future office visit with this provider/department: Yes Requested Prescriptions Pending Prescriptions Disp Refills ALPRAZolam (XANAX) 1 mg tablet 60 tablet 0 Sig: Take 1 tablet by mouth every 12 hours as needed for up to 30 days. Kaylee Palomares May 01, 2024 11:53 AM documented in this encounter [facility] 04-14-2024 Telephone encounter Note Prescription Refill Information The patient has been identified by name and date of : Yes Caregiver verified no other encounters exist for this prescription request: Yes Caregiver confirmed with patient/requestor that no other refills are due, in the near future, with this provider at this time: Yes The last office visit in the department: 12/1723 Does the patient have a future office visit with this provider/department: Yes Requested Prescriptions Pending Prescriptions Disp Refills omeprazole (PRILOSEC) 40 mg capsule 90 capsule 1 Sig: Take 1 capsule by mouth once daily. Lelia Pappas April 14, 2024 9:46 AM [facility] 04-14-2024 Miscellaneous Notes Prescription Refill Information The patient has been identified by name and date of : Yes Caregiver verified no other encounters exist for this prescription request: Yes Caregiver confirmed with patient/requestor that no other refills are due, in the near future, with this provider at this time: Yes The last office visit in the department: 12/1723 Does the patient have a future office visit with this provider/department: Yes Requested Prescriptions Pending Prescriptions Disp Refills omeprazole (PRILOSEC) 40 mg capsule 90 capsule 1 Sig: Take 1 capsule by mouth once daily. Lelia Pappas April 14, 2024 9:46 AM documented in this encounter [facility] 04-07-2024 Telephone encounter Note Prescription Refill Information The patient has been identified by name and date of : Yes Caregiver verified no other encounters exist for this prescription request: Yes Caregiver confirmed with patient/requestor that no other refills are due, in the near future, with this provider at this time: Yes The last office visit in the department: 01/02/2024 Does the patient have a future office visit with this provider/department: Yes Requested Prescriptions Pending Prescriptions Disp Refills zolpidem (AMBIEN) 10 mg [Pharmacy Med Name: zolpidem 10 mg tablet] 30 tablet 2 Sig: Take 1 tablet by mouth at bedtime as neede for Insomnia Husam Grant MA April 07, 2024 8:08 AM [facility] 04-07-2024 Miscellaneous Notes Prescription Refill Information The patient has been identified by name and date of : Yes Caregiver verified no other encounters exist for this prescription request: Yes Caregiver confirmed with patient/requestor that no other refills are due, in the near future, with this provider at this time: Yes The last office visit in the department: 01/02/2024 Does the patient have a future office visit with this provider/department: Yes Requested Prescriptions Pending Prescriptions Disp Refills zolpidem (AMBIEN) 10 mg [Pharmacy Med Name: zolpidem 10 mg tablet] 30 tablet 2 Sig: Take 1 tablet by mouth at bedtime as neede for Insomnia Husam Grant MA April 07, 2024 8:08 AM documented in this encounter [facility] 04-01-2024 Telephone encounter Note Prescription Refill Information The patient has been identified by name and date of : Yes Caregiver verified no other encounters exist for this prescription request: Yes Caregiver confirmed with patient/requestor that no other refills are due, in the near future, with this provider at this time: Yes The last office visit in the department: 01/02/24 Does the patient have a future office visit with this provider/department: Yes Requested Prescriptions Pending Prescriptions Disp Refills ALPRAZolam (XANAX) 1 mg tablet 60 tablet 0 Sig: Take 1 tablet by mouth every 12 hours as needed for up to 30 days. Jasmin Garza April 01, 2024 11:49 AM [facility] 04-01-2024 Miscellaneous Notes Prescription Refill Information The patient has been identified by name and date of : Yes Caregiver verified no other encounters exist for this prescription request: Yes Caregiver confirmed with patient/requestor that no other refills are due, in the near future, with this provider at this time: Yes The last office visit in the department: 01/02/24 Does the patient have a future office visit with this provider/department: Yes Requested Prescriptions Pending Prescriptions Disp Refills ALPRAZolam (XANAX) 1 mg tablet 60 tablet 0 Sig: Take 1 tablet by mouth every 12 hours as needed for up to 30 days. Jasmin Garza April 01, 2024 11:49 AM documented in this encounter [facility] 03-17-2024 Telephone encounter Note Prescription Refill Information The patient has been identified by name and date of : Yes Caregiver verified no other encounters exist for this prescription request: Yes Caregiver confirmed with patient/requestor that no other refills are due, in the near future, with this provider at this time: Yes The last office visit in the department: 01/02/2024 Does the patient have a future office visit with this provider/department: Yes Requested Prescriptions Pending Prescriptions Disp Refills promethazine (PHENERGAN) 25 mg tablet 30 tablet 5 Sig: Take 1 tablet by mouth every 6 hours as needed. Estelita Lomeli March 17, 2024 9:07 AM [facility] 03-17-2024 Miscellaneous Notes Prescription Refill Information The patient has been identified by name and date of : Yes Caregiver verified no other encounters exist for this prescription request: Yes Caregiver confirmed with patient/requestor that no other refills are due, in the near future, with this provider at this time: Yes The last office visit in the department: 01/02/2024 Does the patient have a future office visit with this provider/department: Yes Requested Prescriptions Pending Prescriptions Disp Refills promethazine (PHENERGAN) 25 mg tablet 30 tablet 5 Sig: Take 1 tablet by mouth every 6 hours as needed. Estelita Lomeli March 17, 2024 9:07 AM documented in this encounter [facility] 03-03-2024 Telephone encounter Note Patient calls requesting refill: Requested Prescriptions Pending Prescriptions Disp Refills ALPRAZolam (XANAX) 1 mg tablet 60 tablet 0 Sig: Take 1 tablet by mouth every 12 hours as needed for up to 30 days. Date of last visit:02/01/2024 Phone #: [phone] (home) [phone] (cell) The patients preferred pharmacy has been captured for this encounter? yes [facility] 03-03-2024 Miscellaneous Notes Patient calls requesting refill: Requested Prescriptions Pending Prescriptions Disp Refills ALPRAZolam (XANAX) 1 mg tablet 60 tablet 0 Sig: Take 1 tablet by mouth every 12 hours as needed for up to 30 days. Date of last visit:02/01/2024 Phone #: [phone] (home) [phone] (cell) The patients preferred pharmacy has been captured for this encounter? yes documented in this encounter [facility] 02-01-2024 Telephone encounter Note Patient calls requesting refill: Requested Prescriptions Pending Prescriptions Disp Refills ALPRAZolam (XANAX) 1 mg tablet 60 tablet 0 Sig: Take 1 tablet by mouth every 12 hours as needed for up to 30 days. Date of last visit:01/02/2024 Phone #: [phone] (home) [phone] (cell) The patients preferred pharmacy has been captured for this encounter? yes [facility] 02-01-2024 Miscellaneous Notes Patient calls requesting refill: Requested Prescriptions Pending Prescriptions Disp Refills ALPRAZolam (XANAX) 1 mg tablet 60 tablet 0 Sig: Take 1 tablet by mouth every 12 hours as needed for up to 30 days. Date of last visit:01/02/2024 Phone #: [phone] (home) [phone] (cell) The patients preferred pharmacy has been captured for this encounter? yes documented in this encounter [facility] 01-15-2024 Telephone encounter Note Patient calls requesting refill: Requested Prescriptions Pending Prescriptions Disp Refills zolpidem (AMBIEN) 10 mg 30 tablet 2 Sig: Take 1 tablet by mouth at bedtime as needed for up to 90 days. For Insomnia Date of last visit:Visit date not found Phone #: [phone] (home) [phone] (cell) The patients preferred pharmacy has been captured for this encounter? yes [facility] 01-15-2024 Miscellaneous Notes Patient calls requesting refill: Requested Prescriptions Pending Prescriptions Disp Refills zolpidem (AMBIEN) 10 mg 30 tablet 2 Sig: Take 1 tablet by mouth at bedtime as needed for up to 90 days. For Insomnia Date of last visit:Visit date not found Phone #: [phone] (home) [phone] (cell) The patients preferred pharmacy has been captured for this encounter? yes documented in this encounter [facility] 01-13-2024 History of Presen t illness Narrative Images from the original note were not included. Kentrell Dhaliwal II, MD [address], [place] [address] SUBJECTIVE Kaitlyn Escobar is a 73 year old female who presents with Follow Up (1 month ) and Medication Question (Patient is wondering if she should take Iron since the iron infusion at the hospital helped? //Patient states that phenergan helps better than Zofran. Patient wondering if she can switch. ). HPI Patient seen today to follow-up her GI and other issues and an ER visit and hospital stay. She states she does feel better since her hospital stay and feels like the iron infusion and other treatments she received helped significantly. She would like to have a couple refills on medication. Review of Systems Constitutional: Negative for activity change, appetite change, chills, diaphoresis, fatigue, fever and unexpected weight change. HENT: Negative for congestion, dental problem, ear pain, hearing loss, nosebleeds, postnasal drip, rhinorrhea, sinus pressure, sinus pain, sore throat, trouble swallowing and voice change. Eyes: Negative for discharge, redness and visual disturbance. Respiratory: Negative for apnea, cough, choking, chest tightness, shortness of breath, wheezing and stridor. Cardiovascular: Negative for chest pain, palpitations and leg swelling. Gastrointestinal: Negative for abdominal distention, abdominal pain, blood in stool, constipation, diarrhea, nausea and vomiting. Endocrine: Negative for cold intolerance, heat intolerance, polydipsia, polyphagia and polyuria. Genitourinary: Negative for decreased urine volume, difficulty urinating, dysuria, enuresis, frequency, hematuria and urgency. Musculoskeletal: Negative for arthralgias, gait problem and myalgias. Skin: Negative for color change, pallor, rash and wound. Allergic/Immunologic: Negative for environmental allergies. Neurological: Negative for dizziness, tremors, syncope, facial asymmetry, speech difficulty, weakness, light-headedness, numbness and headaches. Hematological: Negative for adenopathy. Does not bruise/bleed easily. Psychiatric/Behavioral: Negative for agitation, behavioral problems, confusion, decreased concentration, dysphoric mood, hallucinations, self-injury, sleep disturbance and suicidal ideas. The patient is not nervous/anxious and is not hyperactive. PAST MEDICAL HISTORY Diagnosis Date Anxiety and depression Diabetes (HCC) Drug-induced Parkinson's disease (HCC) GERD (gastroesophageal reflux disease) History of DVT (deep vein thrombosis) IBS (irritable bowel syndrome) Seizures (HCC) Small bowel obstruction (HCC) Tremor PAST SURGICAL HISTORY Procedure Laterality Date CHOLECYSTECTOMY HX COLON SURGERY HX HYSTERECTOMY HX ROTATOR CUFF REPAIR Left TONSILLECTOMY HX WRIST SURGERY HX Right Social History Tobacco Use Smoking status: Never Smokeless tobacco: Never Vaping Use Vaping Use: Never used Substance Use Topics Alcohol use: Not Currently Drug use: Never FAMILY HISTORY Problem Relation Age of Onset Emphysema Mother Heart disease Father The ROS, medical, surgical, family, and social history were reviewed by Kentrell Dhaliwal II, MD ALLERGIES Allergen Reactions Latex Anaphylaxis Abilify [Aripiprazo* Other: See Comments Muscles couldn't get up Codeine Diarrhea Compazine [Prochlor* Myalgia Levaquin [Levofloxa* Diarrhea Omnicef [Cefdinir] Diarrhea Prednisone GI Upset Propoxyphene Unknown Naudasw-Tgl-Zek Red* Diarrhea, Intolerance Sulfa (Sulfonamide * Other: See Comments Leg pain Shellfish Containin* Swelling Current Outpatient Medications Medication Sig diphenoxylate-atropine (LOMOTIL) 2.5-0.025 mg per tablet Take 1 tablet by mouth four times a day as needed for up to 10 days. warfarin (COUMADIN) 5 mg tablet Take 1 tablet by mouth once daily. omeprazole (PRILOSEC) 40 mg capsule Take 1 capsule by mouth once daily. ondansetron (ZOFRAN) 8 mg tablet Take 1 tablet by mouth every 8 hours as needed for nausea/vomiting. zolpidem (AMBIEN) 10 mg Take 1 tablet by mouth at bedtime as needed for up to 90 days. For Insomnia ondansetron orally disintegrating (ZOFRAN ODT) 4 mg disintegrating tablet Take 1 tablet by mouth every 8 hours as needed for nausea/vomiting. ntuedibznu-gpcmbfbn-qhywsyxnyi (BREZTRI AEROSPHERE) 160-9-4.8 mcg/actuation HFA aerosol inhaler Inhale 2 Puffs as instructed two times a day. albuterol HFA (PROVENTIL HFA, VENTOLIN HFA) 90 mcg/actuation inhaler Inhale 2 Puffs as instructed every 6 hours as needed for wheezing/shortness of breath. simethicone 250 mg cap Take 1 capsule by mouth three times a day. hyoscyamine SR (LEVBID) 0.375 mg 12 hr tablet Take 1 tablet by mouth two times a day. levothyroxine (SYNTHROID) 50 mcg tablet Take 1 tablet by mouth once daily. dicyclomine (BENTYL) 20 mg tablet Take 1 tablet by mouth three times a day. ondansetron (ZOFRAN) 4 mg tablet Take 1 tablet by mouth every 6 hours as needed. traMADol (ULTRAM) 50 mg tablet Take 1 tablet by mouth every 6 hours as needed. buPROPion XL (WELLBUTRIN XL) 150 mg 24 hr tablet Take 2 tablets by mouth once daily. ezetimibe (ZETIA) 10 mg tablet Take 1 tablet by mouth once daily. cyclobenzaprine (FLEXERIL) 10 mg tablet Take 1 tablet by mouth three times daily as needed. docusate sodium (COLACE) 100 mg capsule Take 1 capsule by mouth twice daily. SF 5000 PLUS 1.1 % dental cream promethazine (PHENERGAN) 25 mg tablet Take 1 tablet by mouth every 6 hours as needed. busPIRone (BUSPAR) 15 mg tablet Take 0.5 tablets by mouth two times a day. rOPINIRole (REQUIP) 0.5 mg tablet Take 1 tablet by mouth two times a day. clotrimazole-betamethasone (LOTRISONE) cream Apply to affected area two times a day. ALPRAZolam (XANAX) 1 mg tablet Take 1 tablet by mouth every 12 hours as needed for up to 30 days. ferrous gluconate 236 mg (27 mg iron) tab Take 1 tablet by mouth once daily. No current facility-administered medications for this visit. OBJECTIVE BP 118/64 (BP Site: Left Arm, BP Position: Sitting) Pulse 77 Temp 36.8 C (98.2 F) Resp 12 Ht 154.9 cm (5' 1) Wt 53.1 kg (117 lb) SpO2 100% BMI 22.11 kg/m BMI 22.11 kg/(m^2) Physical Exam Vitals and nursing note reviewed. Constitutional: General: She is not in acute distress. Appearance: Normal appearance. She is not ill-appearing, toxic-appearing or diaphoretic. HENT: Head: Normocephalic and atraumatic. Right Ear: Tympanic membrane, ear canal and external ear normal. There is no impacted cerumen. Left Ear: Tympanic membrane, ear canal and external ear normal. There is no impacted cerumen. Nose: Nose normal. No congestion or rhinorrhea. Mouth/Throat: Mouth: Mucous membranes are moist. Pharynx: Oropharynx is clear. No oropharyngeal exudate or posterior oropharyngeal erythema. Eyes: General: No scleral icterus. Right eye: No discharge. Left eye: No discharge. Extraocular Movements: Extraocular movements intact. Conjunctiva/sclera: Conjunctivae normal. Pupils: Pupils are equal, round, and reactive to light. Neck: Vascular: No carotid bruit. Cardiovascular: Rate and Rhythm: Normal rate and regular rhythm. Pulses: Normal pulses. Heart sounds: Normal heart sounds. No murmur heard. No friction rub. No gallop. Pulmonary: Effort: Pulmonary effort is normal. No respiratory distress. Breath sounds: Normal breath sounds. No stridor. No wheezing, rhonchi or rales. Chest: Chest wall: No tenderness. Abdominal: General: Abdomen is flat. Bowel sounds are normal. There is no distension. Palpations: Abdomen is soft. There is no mass. Tenderness: There is no abdominal tenderness. There is no right CVA tenderness, left CVA tenderness, guarding or rebound. Hernia: No hernia is present. Musculoskeletal: General: No signs of injury. Cervical back: Normal range of motion and neck supple. No rigidity or tenderness. Comments: Neurovascular, ROM and strength without significant changes from previous examinations except that she is overall generally less weak and consistent with patient history Lymphadenopathy: Cervical: No cervical adenopathy. Skin: General: Skin is warm and dry. Capillary Refill: Capillary refill takes less than 2 seconds. Coloration: Skin is not jaundiced or pale. Findings: No erythema, lesion or rash. Neurological: General: No focal deficit present. Mental Status: She is alert and oriented to person, place, and time. Mental status is at baseline. Cranial Nerves: No cranial nerve deficit. Sensory: No sensory deficit. Motor: No weakness. Coordination: Coordination normal. Gait: Gait normal. Deep Tendon Reflexes: Reflexes normal. Psychiatric: Mood and Affect: Mood normal. Behavior: Behavior normal. Thought Content: Thought content normal. Judgment: Judgment normal. Labs: Hemoglobin (g/dL) Date Value 11/28/2023 10.3 11/23/2022 11.6 Hematocrit (%) Date Value 11/28/2023 31.5 11/23/2022 35.1 WBC Date Value 11/28/2023 10.03 k/uL 11/23/2022 7.8 x10(3) Platelet Count Date Value 11/28/2023 444 k/uL 11/23/2022 391 X10(3) Creatinine Date Value Ref Range Status 11/28/2023 1.22 (H) 0.58 - 0.96 mg/dL Final AST Date Value Ref Range Status 11/28/2023 23 13 - 35 U/L Final ALT Date Value Ref Range Status 11/28/2023 15 7 - 38 U/L Final Blood Culture (no units) Date Value 11/12/2021 XXX 11/12/2021 XXX Bilirubin, Total (mg/dL) Date Value 11/28/2023 0.3 Bilirubin, Conjugated (mg/dL) Date Value 11/28/2023 <0.2 Antibody Screen (no units) Date Value 04/01/2023 Negative WBC (k/uL) Date Value 11/28/2023 10.03 RBC (m/uL) Date Value 11/28/2023 3.71 (L) %DIG,%DBS Plan ASSESSMENT/PLAN: 1. Gastroesophageal reflux disease, unspecified whether esophagitis present - ICD9: 530.81, ICD10: K21.9 (primary diagnosis) Improved. Clinically stable. Continue same medication and treatment. Follow up in 3 to 6 months or sooner if needed. 2. Nausea - ICD9: 787.02, ICD10: R11.0 Improved. Phenergan 25 mg every 8 hours as needed for nausea. Follow-up in 3 months or sooner if needed depending on her progress - PROMETHAZINE 25 MG TABLET 3. Anxiety and depression - ICD9: 300.00, 311, ICD10: F41.9, F32.A Clinically stable. Continue same medication and treatment. Follow up in 3 months or sooner if needed. - BUSPIRONE 15 MG TABLET - ALPRAZOLAM 1 MG TABLET 4. Diarrhea, unspecified type - ICD9: 787.91, ICD10: R19.7 Improved.Clinically stable. Continue same medication and treatment. Follow up in 3 months or sooner if needed. 5. Generalized weakness - ICD9: 780.79, ICD10: R53.1 Improved.Clinically stable. Continue same medication and treatment. Follow up in 3 months or sooner if needed. 6. Hypothyroidism, acquired - ICD9: 244.9, ICD10: E03.9 - Instructed patient on importance of taking on an empty stomach either first thing in the morning or at bedtime. - check TSH in 3 months and in 6 months - continue current dose of Synthroid - Follow up in 6 months 7. Iron deficiency anemia, unspecified iron deficiency anemia type - ICD9: 280.9, ICD10: D50.9 Clinically stable. Continue same medication and treatment. Follow up in 3 months or sooner if needed. Kentrell Dhaliwal II, MD Follow up: Return in about 3 months (around 04/02/2024). Kentrell Dhaliwal II, M.D. documented in this encounter [facility] 12-17-2023 Miscellaneous Notes Called patient for update- Patient stated that she has decided to go into a Independent living facility. [facility] [place]. Is in the process of making the arrangements. Confirmed that she still plans to follow with Dr. Dhaliwal in the office and confirmed appointment for January 01. Jessie Mccloud RN Patient calls today. Reason for Call: patient stated we have been calling her sisters number and when checking chart sisters cell phone was listed as patients cell number. Chart has been updated and patient is requesting nurse navigator call her at [phone] . Patient stated she is doing well since being in the hospital but is [facility] and would like to discuss. Thank you [phone] (home) [phone] (cell) Patient last appointment: 12/12/2023 Kavya Argueta documented in this encounter [facility] 12-11-2023 Note [facility] 12-11-2023 Progress note Note Date/Time December 11, 2023 8:14am [facility] Medical Records Department [address] [place] [address] Progress Note - Surgery 12/11/23806 MR#: [id number] Acct: [id number] Name: KAITLYN ESCOBAR Rep #:[id number] : 1950 73 From: Stefania RIVERA PATorriC PCP: Dr. Kentrell Dhaliwal MD Status:ADM IN Location: [place] [id number]- Subjective Subjective Patient evaluated resting comfortably in bed. She notes feeling much improved this morning. She notes tolerating a full liquid diet well. She notes continuingto have loose stools which is her normal. She denies nausea, vomiting. Objective Data Objective Data Vital Signs: Vital Signs Temp Pulse Resp BP Pulse Ox O2 Del Method 97.7 F L 68 16 120/80 96 Room Air 12/11/23 02:00 12/11/23 02:00 12/11/23 02:00 12/11/23 02:00 12/11/23 02:00 12/11/23 02:00 Oxygen Delivery Method Room Air Weight: 119 lb 14.903 oz Body Mass Index (BMI) 22.6 Intake & Output: Intake and Output for Last 24 Hours 12/09/23 12/10/23 12/11/23 23:59 23:59 23:59 Intake Total 2920 / 2920 2773.34 / 2773.34 1000 / 1000 Balance 2920 / 2920 2773.34 / 2773.34 1000 / 1000 Lab / Micro Data 12/11/23 06:10 12/11/23 06:10 Labs: Laboratory Results - last 24 hr 12/10/23 12:24: Iron 28 L, TIBC 350, Iron Saturation 8.0 L, Ferritin 15, [id number] 741 12/11/23 06:10: WBC 5.6, RBC 2.90 L, Hgb 7.8 L, Hct 24.7 L, MCV 85.2, MCH 26.9 L, MCHC 31.6 L, RDW Std Deviation 51.0 H, RDW Coeff of Neno 16.3 H, Plt Count 235,MPV 11.0, Immature Gran % (Auto) 0.200, Neut % (Auto) 52.3, Lymph % (Auto) 32.3,Maverick % (Auto) 11.6 H, Eos % (Auto) 2.7, Baso % (Auto) 0.9, Absolute Neuts (auto)2.9, Absolute Lymphs (auto) 1.81, Nucleated RBC % 0, Sodium 145, Potassium 3.2 L, Chloride 114 H, Carbon Dioxide 21.0, Anion Gap 10, BUN 2 L, Creatinine 0.82, Estim Creat Clear Calc 46.80, Est GFR (MDRD) Af Amer 88, Est GFR (MDRD) Non-Af 73, BUN/Creatinine Ratio 2.4 L, Glucose 125 H, Calcium 7.8 L Micro: Microbiology 12/08/23 07:00 Stool Clostridioides difficile (PCR) - Final 12/08/23 07:00 Stool Stool Occult Blood (EBONY) - Final Occult Blood Positive 12/07/23 14:30 Stool Enteric Bacteriology - Final 12/07/23 05:45 Mucosa - Nasopharyngeal Respiratory Panel (PCR) - Final Physical Exam GI GI Narrative: Abdomen- soft, nontender, nondistended. Positive bowel sounds. Assessment & Plan Assessment/Plan (1) Abdominal pain: QUALIFIERS: Abdominal location: generalized Qualified Code(s): R10.84 - Generalized abdominal pain PLAN: I am seeing this patient in conjunction with Dr. Umanzor. He has independently evaluated this patient. Recommend transitional diet for breakfast and lunch If patient tolerates those 2 meals, she may be discharged Recommend continuing on the transitional diet for 2 weeks and slowly return to her normal diet If she notes a change in her abdominal pain, I would recommend decreasing her diet to clear liquids for 2 days and then slowly returning to normal diet once pain is resolved. Continue to hydrate Discussed avoiding narcotic medication as this change her bowel habits and causeabdominal pain. Patient verbally understands. Follow-up with our office as needed. Recommend following up with her PCP to havethem follow her. Charges/Coding Visit Charges Inpatient E&M: 25754 Subs Hosp L1 12/11/23 0814 <Electronically signed by Stefania RIVERA PA-C> Cosigner Signature (if applicable): CC: ~ Signed [facility] Work Phone: 1(522) 184-889303-25-2024 Progress note Author Stefania Duarte [facility] December 10, 2023 3:45pm Note Date/Time December 10, 2023 3:4 6pm [facility] Medical Records Department [address] [place] [address] Progress Note - Surgery 12/10/23 1538 MR#: [id number] Acct: [id number] Name: KAITLYN ESCOBAR Rep #:[id number] : 1950 73 From: Stefania RIVERA PA-C PCP: Dr. Kentrell Dhaliwal MD Status:ADM IN Location: [place] [address] Subjective Subjective Patient evaluated around lunch time. Patient was resting comfortably in bed. Shenotes feeling unwell at times when drinking clear liquids and then states that clear liquids are going well. She is passing flatus and having bowel movements. She denies any abdominal pain. Objective Data Objective Data Vital Signs: Vital Signs Temp Pulse Resp BP Pulse Ox O2 Del Method 97.7 F L 71 16 135/57 H 100 Room Air 12/10/23 14:55 12/10/23 14:55 12/10/23 14:55 12/10/23 14:55 12/10/23 14:55 12/10/23 14:55 Oxygen Delivery Method Room Air Weight: 119 lb 0.794 oz Body Mass Index (BMI) 22.4 Intake & Output: Intake and Output for Last 24 Hours 12/08/23 12/09/23 12/10/23 23:59 23:59 23:59 Intake Total 2460 / 2460 2920 / 2920 2168.34 / 2168.34 Output Total Balance 2459 / 2459 2920 / 2920 2168.34 / 2168.34 Lab / Micro Data 12/09/23 12:00 12/09/23 12:00 Labs: Laboratory Results - last 24 hr 12/10/23 12:24: Iron 28 L, TIBC 350, Iron Saturation 8.0 L, Ferritin 15, [id number] 741 Micro: Microbiology 12/08/23 07:00 Stool Clostridioides difficile (PCR) - Final 12/08/23 07:00 Stool Stool Occult Blood (EBONY) - Final Occult Blood Positive 12/07/23 14:30 Stool Enteric Bacteriology - Final 12/07/23 05:45 Mucosa - Nasopharyngeal Respiratory Panel (PCR) - Final Physical Exam GI GI Narrative: Abdomen- soft, nontender Assessment & Plan Assessment/Plan (1) Abdominal pain: QUALIFIERS: Abdominal location: generalized Qualified Code(s): R10.84 - Generalized abdominal pain PLAN: I am seeing this patient in conjunction with Dr. Umanzor. He has also independently evaluated this patient. KUB yesterday demonstrated no evidence of small bowel obstruction. Contrast seenwithin the colon. Increase from clear to full liquids today Plan to increase patient to transitional diet tomorrow and possible discharge We will continue to monitor this patient Charges/Coding Visit Charges Inpatient E&M: 54541 Subs Hosp L1 12/10/23 1545 <Electronically signed by Stefania RIVERA PA-C> Cosigner Signature (if applicable): CC: ~ Signed [facility] Work Phone: 1(345) 905-798103-25-2024 Progress note Author Aly Fragoso [facility] December 10, 2023 10:35am Note Date/Time December 10, 2023 10: 35am [facility] Medical Records Department [address] [place] [address] Progress Note - Hospitalist 12/10/23 1033 MR#: [id number] Acct: [id number] Name: KAITLYN ESCOBAR Rep #:[id number] : 1950 73 From: Aly quintana MD PCP: Dr. Kentrell Dhaliwal MD Status:ADM IN Location: [place] [address] Subjective Subjective Doing well continue passing flatus. Tolerating clear liquids will advance to full Objective Data Objective Data Vital Signs: Vital Signs Temp Pulse Resp BP Pulse Ox O2 Del Method 98.2 F 67 18 137/73 H 95 Room Air 12/10/23 07:50 12/10/23 07:50 12/10/23 07:50 12/10/23 07:50 12/10/23 07:50 12/10/23 07:50 Oxygen Delivery Method Room Air Weight: 119 lb 0.794 oz Body Mass Index (BMI) 22.4 Intake & Output: Intake and Output for Last 24 Hours 12/09/23 12/10/23 12/11/23 03:59 03:59 03:59 Intake Total 2220 / 2220 3320 / 3320 1351.67 / 1351.67 Output Total Balance 2219 / 2219 3320 / 3320 1351.67 / 1351.67 Lab / Micro Data 12/09/23 12:00 12/09/23 12:00 Labs: Laboratory Results - last 24 hr 12/09/23 12:00: WBC 7.5, RBC 3.00 L, Hgb 8.3 L, Hct 25.8 L, MCV 86.0, MCH 27.7, MCHC 32.2, RDW Std Deviation 50.3 H, RDW Coeff of Neno 16.1 H, Plt Count 269, MPV10.1, Immature Gran % (Auto) 0.500, Neut % (Auto) 59.4, Lymph % (Auto) 28.5, Maverick % (Auto) 8.0, Eos % (Auto) 2.8, Baso % (Auto) 0.8, Absolute Neuts (auto) 4.5, Absolute Lymphs (auto) 2.14, Nucleated RBC % 0, Sodium 137, Potassium 3.6, Chloride 109 H, Carbon Dioxide 17.0 L, Anion Gap 11, BUN 9, Creatinine 0.96, Estim Creat Clear Calc 39.97, Est GFR (MDRD) Af Amer 74, Est GFR (MDRD) Non-Af 61, BUN/Creatinine Ratio 9.4 L, Glucose 104, Calcium 8.2 L, Total Bilirubin 0.70, AST 54 H, ALT 77 H, Alkaline Phosphatase 139 H, Total Protein 6.0 L, Albumin 2.8 L, Globulin 3.2, Albumin/Globulin Ratio 0.9 Micro: Microbiology 12/08/23 07:00 Stool Clostridioides difficile (PCR) - Final 12/08/23 07:00 Stool Stool Occult Blood (EBONY) - Final Occult Blood Positive 12/07/23 14:30 Stool Enteric Bacteriology - Final 12/07/23 05:45 Mucosa - Nasopharyngeal Respiratory Panel (PCR) - Final Radiography Diagnostic Testing: Radiology Impression KUB X-Ray 12/09/23 09:50 IMPRESSION: 1. Contrast throughout the colonic distribution. No significantly distended loops of bowel. No evidence of small bowel obstruction. 2. Degenerative changes of the spine and hips with apex right curvature of the spine. Electronically Signed: Thien Robert DO at 10:36 EDT , Physical Exam Narrative General: Alert, Oriented x3, Cooperative, No apparent distress HEENT: Atraumatic, PERRLA, EOMI, Normocephalic Oral: Moist Mucosa Neck: Supple, No JVD Lungs: Diminished, Normal air movement, No rhonchi, No wheeze, No rales Cardiovascular: Regular rate, Regular Rhythm, Normal S1, Normal S2, No murmurs Abdomen: Soft, minimally tender, Non-Distended, No Hepato-splenomegaly Extremities: No edema, Capillary Refill Less than 3 Seconds Skin: No rashes, No breakdown Musculoskeletal: No Tenderness to Palpation of Joints or Extremities Neurological: No focal neurological deficits, Motor Exam 5/5 strength throughout, Sensory exam intact to light touch and pain Psych/Mental Status: Anxious Assessment & Plan Assessment/Plan (1) SBO (small bowel obstruction): PLAN: Plan 1. Intractable abdominal pain with nausea and vomiting secondary to a partial small bowel obstruction/normocytic normochromic anemia/GERD ? She has had a history of abdominal surgery with removal of 40% of her small bowel she has had multiple episodes of small bowel obstructions with requiring transfer to a higher level of care ? Will discuss with surgery if she tolerates a full liquid diet if she can be discharged today or if they would like to wait another day depending on how she responds ? Continue with PPI ? Appreciate general surgery's assistance ? Continue with antinausea medications 2. Anxiety/depression/restless legs ? Stabilized ? Can restart on discharge 3. Hypothyroidism ? Stable ? Can restart on discharge 4. Hyperlipidemia ? Stable ? Can restart on discharge 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 Given her dropping anemia we will continue to hold her Coumadin DVT: SCDs Charges/Coding Visit Charges Inpatient E&M: 50950 Subs Hosp L2 12/10/23 1035 <Electronically signed by Aly Fragoso MD> Cosigner Signature (if applicable): CC: ~ Signed [facility] Work Phone: 1(168) 725-364303-24-2024 Progress note Author Aly Fragoso [facility] December 09, 2023 2:19pm Note Date/Time December 09, 2023 2:1 9pm [facility] Medical Records Department [address] [place] [id number] Progress Note - Hospitalist 12/09/23 1418 MR#: [id number] Acct: [id number] Name: KAITLYN ESCOBAR Rep #:[id number] : 1950 73 From: Aly quintana MD PCP: Dr. Kentrell Dhaliwal MD Status:ADM IN Location: [place] [address] Subjective Subjective Feels better today, had a bowel movement and had flatus Objective Data Objective Data Vital Signs: Vital Signs Temp Pulse Resp BP Pulse Ox O2 Del Method 97.6 F L 67 17 148/67 H 98 Room Air 12/09/23 09:00 12/09/23 09:00 12/09/23 09:00 12/09/23 09:00 12/09/23 09:00 12/09/23 10:00 Oxygen Delivery Method Room Air Weight: 120 lb 9.486 oz Body Mass Index (BMI) 22.8 Intake & Output: Intake and Output for Last 24 Hours 12/08/23 12/09/23 12/10/23 03:59 03:59 03:59 Intake Total 2410 / 2410 2220 / 2220 1000 / 1000 Output Total Balance 2410 / 2410 2219 / 2219 1000 / 1000 Lab / Micro Data 12/09/23 12:00 12/09/23 12:00 Labs: Laboratory Results - last 24 hr 12/09/23 12:00: WBC 7.5, RBC 3.00 L, Hgb 8.3 L, Hct 25.8 L, MCV 86.0, MCH 27.7, MCHC 32.2, RDW Std Deviation 50.3 H, RDW Coeff of Neno 16.1 H, Plt Count 269, MPV10.1, Immature Gran % (Auto) 0.500, Neut % (Auto) 59.4, Lymph % (Auto) 28.5, Maverick % (Auto) 8.0, Eos % (Auto) 2.8, Baso % (Auto) 0.8, Absolute Neuts (auto) 4.5, Absolute Lymphs (auto) 2.14, Nucleated RBC % 0, Sodium 137, Potassium 3.6, Chloride 109 H, Carbon Dioxide 17.0 L, Anion Gap 11, BUN 9, Creatinine 0.96, Estim Creat Clear Calc 39.97, Est GFR (MDRD) Af Amer 74, Est GFR (MDRD) Non-Af 61, BUN/Creatinine Ratio 9.4 L, Glucose 104, Calcium 8.2 L, Total Bilirubin 0.70, AST 54 H, ALT 77 H, Alkaline Phosphatase 139 H, Total Protein 6.0 L, Albumin 2.8 L, Globulin 3.2, Albumin/Globulin Ratio 0.9 Micro: Microbiology 12/08/23 07:00 Stool Clostridioides difficile (PCR) - Final 12/08/23 07:00 Stool Stool Occult Blood (EBONY) - Final Occult Blood Positive 12/07/23 14:30 Stool Enteric Bacteriology - Final 12/07/23 05:45 Mucosa - Nasopharyngeal Respiratory Panel (PCR) - Final Radiography Diagnostic Testing: Radiology Impression KUB X-Ray 12/09/23 09:50 IMPRESSION: 1. Contrast throughout the colonic distribution. No significantly distended loops of bowel. No evidence of small bowel obstruction. 2. Degenerative changes of the spine and hips with apex right curvature of the spine. Electronically Signed: Thien Robert DO at 10:36 EDT , Physical Exam Narrative General: Alert, Oriented x3, Cooperative, No apparent distress HEENT: Atraumatic, PERRLA, EOMI, Normocephalic Oral: Moist Mucosa Neck: Supple, No JVD Lungs: Diminished, Normal air movement, No rhonchi, No wheeze, No rales Cardiovascular: Regular rate, Regular Rhythm, Normal S1, Normal S2, No murmurs Abdomen: Soft, minimally tender, Non-Distended, No Hepato-splenomegaly Extremities: No edema, Capillary Refill Less than 3 Seconds Skin: No rashes, No breakdown Musculoskeletal: No Tenderness to Palpation of Joints or Extremities Neurological: No focal neurological deficits, Motor Exam 5/5 strength throughout, Sensory exam intact to light touch and pain Psych/Mental Status: Anxious Assessment & Plan Assessment/Plan (1) SBO (small bowel obstruction): PLAN: Plan 1. Intractable abdominal pain with nausea and vomiting secondary to a partial small bowel obstruction/normocytic normochromic anemia/GERD ? She has had a history of abdominal surgery with removal of 40% of her small bowel she has had multiple episodes of small bowel obstructions with requiring transfer to a higher level of care ? Pending transfer to [facility], though she may be discharged prior to acceptance if she is able to tolerate a clear liquid diet today and a full liquid diet tomorrow ? Continue with PPI ? Appreciate general surgery's assistance ? Attempted small bowel follow-through yesterday however she had emesis after every sip however still does not want an NG tube ? Continue with antinausea medications 2. Anxiety/depression/restless legs ? Stabilized ? Can restart on discharge 3. Hypothyroidism ? Stable ? Can restart on discharge 4. Hyperlipidemia ? Stable ? Can restart on discharge 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 Given her dropping anemia we will continue to hold her Coumadin DVT: SCDs Charges/Coding Visit Charges Inpatient E&M: 93935 Subs Hosp L2 12/09/23 7369 <Electronically signed by Aly Fragoso MD> Cosigner Signature (if applicable): CC: ~ Signed [facility] Work Phone: 1(876) 892-482003-24-2024 Progress note Author Ana Laura Lennon [facility] December 09, 2023 9:37am Note Date/Time December 09, 2023 9:[facility] [address] [place] [address] Progress Note - Surgery 12/09/23932 MR#: [id number] Acct: [id number] Name: KAITLYN ESCOBAR Rep #:[id number] : 1950 73 From: Ana Laura Lennon MD PCP: Dr. Kentrell Dhaliwal MD Status:ADM IN Location: [place] [address]- Subjective Subjective Pt had flatus and liquid stool per patient. Patient still complains of abdominal pain worse than her normal abdominal pain. Patient still has nausea but she does states she is chronically nauseated. Patient states her symptoms chips have been staying down. Objective Data Objective Data Vital Signs: Vital Signs Temp Pulse Resp BP Pulse Ox O2 Del Method 97.8 F 76 18 151/68 H 99 Room Air 12/09/23 03:00 12/09/23 03:00 12/09/23 03:00 12/09/23 03:00 12/09/23 03:00 12/09/23 03:00 Oxygen Delivery Method Room Air Weight: 120 lb 9.486 oz Body Mass Index (BMI) 22.8 Intake & Output: Intake and Output for Last 24 Hours 12/07/23 12/08/23 12/09/23 23:59 23:59 23:59 Intake Total 2678.33 / 2918.33 2460 / 2460 1000 / 1000 Output Total Balance 2678.33 / 2918.33 2459 / 2459 1000 / 1000 Lab / Micro Data 12/08/23 14:00 12/08/23 04:53 Labs: Laboratory Results - last 24 hr 12/08/23 14:00: Hgb 8.1 L, Hct 26.0 L Micro: Microbiology 12/08/23 07:00 Stool Clostridioides difficile (PCR) - Final 12/08/23 07:00 Stool Stool Occult Blood (EBONY) - Final Occult Blood Positive 12/07/23 14:30 Stool Enteric Bacteriology - Final 12/07/23 05:45 Mucosa - Nasopharyngeal Respiratory Panel (PCR) - Final Physical Exam Const oriented x3 and no apparent distress Resp normal respiratory effort Cardio regular rate GI soft to palpation GI Narrative: Minimal distention Palpation: tender LLQ (No peritoneal signs) Assessment & Plan Assessment/Plan (1) SBO (small bowel obstruction): PLAN: Patient is a 73-year-old female who was admitted yesterday for concern of partial small bowel obstruction versus ileus. PLAN: Plan Patient is agreeable to try clears as she was able to tolerate substances chips yesterday and did have flatus and bowel movement. Will also check KUB. 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 Ana Laura Lennon M.D. Pager: [phone] [facility] [address] [place] [address], [facility]patient [facility], [address] [place] [address] Office: [phone] Charges/Coding Visit Charges Inpatient E&M: 91673 Subs Hosp L2 12/09/23 0937 <Electronically signed by Ana Laura Lennon MD> Cosigner Signature (if applicable): CC: ~ Signed [facility] Work Phone: 1(598) 308-202603-23-2024 Progress note Author Aly Fragoso [facility] December 08, 2023 11:04am Note Date/Time December 08, 2023 10: 29am [facility] Medical Records Department [address] [place] [address] Progress Note - Hospitalist 12/08/23 1025 MR#: [id number] Acct: [id number] Name: KAITLYN ESCOBAR Rep #:[id number] : 1950 73 From: Aly quintana MD PCP: Dr. Kentrell Dhaliwal MD Status:ADM IN Location: [place] [address] Subjective Subjective Continues to be nauseated with intermittent abdominal pain Objective Data Objective Data Vital Signs: Vital Signs Temp Pulse Resp BP Pulse Ox O2 Del Method 97.6 F L 82 18 142/68 H 98 Room Air 12/08/23 09:29 12/08/23 09:29 12/08/23 09:29 12/08/23 09:29 12/08/23 09:29 12/08/23 09:29 Oxygen Delivery Method Room Air Weight: 121 lb 0.54 oz Body Mass Index (BMI) 22.8 Intake & Output: Intake and Output for Last 24 Hours 12/07/23 12/08/23 12/09/23 03:59 03:59 03:59 Intake Total 1508.33 / 1508.33 2410 / 2410 1000 / 1000 Balance 1508.33 / 1508.33 2410 / 2410 1000 / 1000 Lab / Micro Data 12/08/23 04:53 12/08/23 04:53 Labs: Laboratory Results - last 24 hr 12/08/23 04:53: WBC 6.2, RBC 2.96 L, Hgb 7.9 L, Hct 25.6 L, MCV 86.5, MCH 26.7 L, MCHC 30.9 L, RDW Std Deviation 52.1 H, RDW Coeff of Neno 16.4 H, Plt Count 256,MPV 10.4, Immature Gran % (Auto) 0.300, Neut % (Auto) 53.4, Lymph % (Auto) 34.5,Maverick % (Auto) 8.6, Eos % (Auto) 2.4, Baso % (Auto) 0.8, Absolute Neuts (auto) 3.3, Absolute Lymphs (auto) 2.13, Nucleated RBC % 0, Sodium 140, Potassium 3.7, Chloride 113 H, Carbon Dioxide 19.0 L, Anion Gap 8, BUN 9, Creatinine 0.80, Estim Creat Clear Calc 47.97, Est GFR (MDRD) Af Amer 90, Est GFR (MDRD) Non-Af 75, BUN/Creatinine Ratio 11.2, Glucose 76, Calcium 8.1 L Micro: Microbiology 12/08/23 07:00 Stool Clostridioides difficile (PCR) - Final 12/08/23 07:00 Stool Stool Occult Blood (EBONY) - Final Occult Blood Positive 12/07/23 14:30 Stool Enteric Bacteriology - Final 12/07/23 05:45 Mucosa - Nasopharyngeal Respiratory Panel (PCR) - Final Physical Exam Narrative General: Alert, Oriented x3, Cooperative, No apparent distress HEENT: Atraumatic, PERRLA, EOMI, Normocephalic Oral: Moist Mucosa Neck: Supple, No JVD Lungs: Diminished, Normal air movement, No rhonchi, No wheeze, No rales Cardiovascular: Regular rate, Regular Rhythm, Normal S1, Normal S2, No murmurs Abdomen: Soft, minimally tender, Non-Distended, No Hepato-splenomegaly Extremities: No edema, Capillary Refill Less than 3 Seconds Skin: No rashes, No breakdown Musculoskeletal: No Tenderness to Palpation of Joints or Extremities Neurological: No focal neurological deficits, Motor Exam 5/5 strength throughout, Sensory exam intact to light touch and pain Psych/Mental Status: Anxious Assessment & Plan Assessment/Plan (1) SBO (small bowel obstruction): PLAN: Plan 1. Intractable abdominal pain with nausea and vomiting secondary to a partial small bowel obstruction/normocytic normochromic anemia/GERD ? She has had a history of abdominal surgery with removal of 40% of her small bowel she has had multiple episodes of small bowel obstructions with requiring transfer to a higher level of care ? Pending transfer to [facility] ? Will recheck H&H this afternoon ? Continue with PPI ? Appreciate general surgery's assistance ? Attempted small bowel follow-through yesterday however she had emesis after every sip however still does not want an NG tube ? Continue with antinausea medications ? Will allow her sips and chips 2. Anxiety/depression/restless legs ? Stabilized ? Continue with her home medications as able 3. Hypothyroidism ? Stable ? Will resume Synthroid when able 4. Hyperlipidemia ? Stable ? Hold steady until able to take p.o. 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 Given her dropping anemia we will continue to hold her Coumadin DVT: SCDs Charges/Coding Visit Charges Inpatient E&M: 34210 Subs Hosp L2 12/08/23 1104 <Electronically signed by Aly Fragoso MD> Cosigner Signature (if applicable): CC: ~ Signed [facility] Work Phone: 1(691) 316-286703-23-2024 Progress note Author Ana Laura Lennon [facility] December 08, 2023 9:18am Note Date/Time December 08, 2023 9:1 8am [facility] Medical Records Department [address] [place] [address] Progress Note - Surgery 12/08/2314 MR#: [id number] Acct: [id number] Name: KAITLYN ESCOBAR Rep #:[id number] : 1950 73 From: Ana Laura Lennon MD PCP: Dr. Kentrell Dhaliwal MD Status:ADM IN Location: [place] [address] Subjective Subjective Patient still complains of abdominal pain mostly in left lower quadrant where she points, also nausea. Did attempt to get a small bowel follow-through yesterday however patient would just take a sip of the contrast and throw it back up. Patient denies any further vomiting overnight and states she has had small amount of flatus, is too nauseated for really even sips or chips. But Objective Data Objective Data Vital Signs: Vital Signs Temp Pulse Resp BP Pulse Ox O2 Del Method 98.4 F 92 18 133/67 H 98 Room Air 12/08/23 03:00 12/08/23 03:00 12/08/23 03:00 12/08/23 03:00 12/08/23 03:00 12/08/23 08:41 Oxygen Delivery Method Room Air Weight: 121 lb 0.54 oz Body Mass Index (BMI) 22.8 Intake & Output: Intake and Output for Last 24 Hours 12/06/23 12/07/23 12/08/23 23:59 23:59 23:59 Intake Total 1000 / 1000 2678.33 / 2918.33 1240 / 1240 Balance 1000 / 1000 2678.33 / 2918.33 1240 / 1240 Lab / Micro Data 12/08/23 04:53 12/08/23 04:53 Labs: Laboratory Results - last 24 hr 12/08/23 04:53: WBC 6.2, RBC 2.96 L, Hgb 7.9 L, Hct 25.6 L, MCV 86.5, MCH 26.7 L, MCHC 30.9 L, RDW Std Deviation 52.1 H, RDW Coeff of Neno 16.4 H, Plt Count 256,MPV 10.4, Immature Gran % (Auto) 0.300, Neut % (Auto) 53.4, Lymph % (Auto) 34.5,Maverick % (Auto) 8.6, Eos % (Auto) 2.4, Baso % (Auto) 0.8, Absolute Neuts (auto) 3.3, Absolute Lymphs (auto) 2.13, Nucleated RBC % 0, Sodium 140, Potassium 3.7, Chloride 113 H, Carbon Dioxide 19.0 L, Anion Gap 8, BUN 9, Creatinine 0.80, Estim Creat Clear Calc 47.97, Est GFR (MDRD) Af Amer 90, Est GFR (MDRD) Non-Af 75, BUN/Creatinine Ratio 11.2, Glucose 76, Calcium 8.1 L Micro: Microbiology 12/08/23 07:00 Stool Clostridioides difficile (PCR) - Final 12/08/23 07:00 Stool Stool Occult Blood (EBONY) - Final Occult Blood Positive 12/07/23 14:30 Stool Enteric Bacteriology - Final 12/07/23 05:45 Mucosa - Nasopharyngeal Respiratory Panel (PCR) - Final Physical Exam Const oriented x3 and no apparent distress Resp normal respiratory effort Cardio regular rate GI soft to palpation GI Narrative: Minimal distention Palpation: tender LLQ (No peritoneal signs) Assessment & Plan Assessment/Plan (1) SBO (small bowel obstruction): PLAN: Patient is a 73-year-old female who was admitted yesterday for concern of partial small bowel obstruction versus ileus. She reportedly had numerous boutsof diarrhea prior to her presentation, however, she has not had any further bowel movements since her arrival to the hospital. PLAN: Plan Attempting a diet challenge with just sips and chips, but patient is still having nausea with just sips and chips. Attempted small bowel follow-through was unable to be done as patient would take a sip of the contrast and then vomit. Patient has been accepted to [facility] awaiting bed as she does have short gut due to previous small bowel resection. Ana Laura Lennon M.D. Pager: [phone] [facility] [address] [place] [address], [facility], [address] [place] [address] Office: [phone] Charges/Coding Visit Charges Inpatient E&M: 23574 Subs Hosp L2 12/08/23 0918 <Electronically signed by Ana Laura Lennon MD> Cosigner Signature (if applicable): CC: ~ Signed [facility] Work Phone: 1(623) 439-312103-22-2024 Consult note Author Paulo Umanzor [facility] December 07, 2023 1:42pm Note Date/Time December 07, 2023 12: 07pm [facility] Medical Records Department [address] [place] [address] Consultation - Surgical 12/07/23 1205 MR#: [id number] Acct: [id number] Name: KAITLYN ESCOBAR Rep #:[id number] : 1950 73 From: Paulo Escoto PCP: Dr. Kentrell Dhaliwal MD Status:ADM IN Location: [facility] SPI038- 1 Assessment & Plan Assessment/Plan (1) SBO (small bowel obstruction): PLAN: Patient is a 73-year-old female who was admitted yesterday for concern of partial small bowel obstruction versus ileus. She reportedly had numerous boutsof diarrhea prior to her presentation, however, she has not had any further bowel movements since her arrival to the hospital. Yet, she denies any nausea and confirms some improvement of her abdominal discomfort. She is completely benign with her abdominal exam and in my independent review of patient's CT imaging and follow- up KUB I do not find an obstructive bowel gas pattern. She admittedly has a dilated anastomosis, but I suspect this is a chronic finding. I attempted to prove her GI tract continuity with a small bowel follow-through, but patient is unable to ingest the contrast medium without vomiting immediately. I suspect this is unrelated to any obstructive physiology, but I am not sure it is worth trying to place a nasogastric tube for patient to circumvent her gag reflex. Instead, based on her reassuring exam and imaging wecould consider a diet challenge. HPI Consult Data Date of Consult: 12/07/23 HPI Narrative Reason for Consultation: Concern for partial small bowel obstruction HPI Narrative: KAITLYN ESCOBAR, is a 73 F who presents to [facility] after approximately 5 days of progressive abdominal discomfort. Patient shares that her discomfort began 12/02/2023 following a dinner of deep fried walleye the night prior. She shares that there is been associated diarrhea and nausea. Shedenies any sick contacts. Patient's ER workup was notable for CT imaging of the abdomen pelvis was read byradiology is concerning for partial small bowel obstruction versus ileus with a dilated loop of small bowel adjacent patient's postoperative changes in the pelvis. Patient is known to me from a prior hospitalization for small bowel obstruction in March 2023. At that visit she passed a small bowel follow-through, technically speaking, but thereafter was unable to tolerate a diet and was transferred to [facility] in the event that she would require surgery. She confirms she was managed nonoperatively. 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 [facility] Medical History Anxiety and depression Chronic anemia CKD (chronic kidney disease), stage III Depression DVT (deep venous thrombosis) GERD (gastroesophageal reflux disease) History of small bowel obstruction History of venous thromboembolism HLD (hyperlipidemia) Hyperthyroidism Hypothyroidism Irritable bowel Scarlet fever Home Medications alprazolam 1 mg tablet (Xanax) 1 mg PO BID 12/11/22 [History Last Taken Unknown] bupropion HCl 150 mg 24 hr tablet, extended release 150 mg PO BID 12/11/22 [History Last Taken Unknown] esomeprazole magnesium 20 mg capsule,delayed release 20 mg PO DAILY 12/11/22 [History Last Taken Unknown] ezetimibe 10 mg tablet 10 mg PO DAILY 12/11/22 [History Last Taken Unknown] levothyroxine 50 mcg tablet 50 mcg PO DAILY 12/11/22 [History Last Taken Unknown] ondansetron HCl 4 mg tablet 4 mg PO Q6H PRN Nausea 12/11/22 [History Last Taken Unknown] zolpidem 10 mg tablet (Ambien) 10 mg PO QHS 12/11/22 [History Last Taken Unknown] docusate sodium 100 mg capsule 100 mg PO BID 03/31/23 [History Last Taken Unknown] budesonide 160 mcg-glycopyr 9 mcg-formot 4.8 mcg/actuation HFA inhaler (Breztri Aerosphere) 2 inh inhalation BID 12/06/23 [History Last Taken Unknown] buspirone 15 mg tablet 7.5 mg PO BID 12/06/23 [History Last Taken Unknown] polyethylene glycol 3350 17 gram/dose oral powder (Miralax) 17 g PO BID 12/06/23[History Last Taken Unknown] ropinirole 0.5 mg tablet 0.5 mg PO BID 12/06/23 [History Last Taken Unknown] warfarin 5 mg tablet 5 mg PO DAILY 12/06/23 [History Last Taken Unknown] Allergy/AdvReac Type Severity Reaction Status Date / Time cefdinir [From Omnicef] Allergy Hives Verified 03/31/23 22:24 codeine Allergy NEEDS Verified 03/31/23 22:24 FOLLOW-UP latex Allergy Anaphylaxis Verified 03/31/23 22:24 prochlorperazine Allergy NEEDS Verified 03/31/23 22:24 [From Compazine] FOLLOW-UP shellfish derived Allergy Anaphylaxis Verified 03/31/23 22:24 levofloxacin [From Levaquin] AdvReac Vomiting Verified 03/31/23 22:24 Blsnwdn-IWZ-UnB Reductase AdvReac NEEDS Verified 03/31/23 22:24 Inhibitor FOLLOW-UP Family History (Updated 03/16/23 @ 06:[address] Jessica Thomas MD) Mother Heart disease COPD (chronic obstructive pulmonary disease) Father Heart disease Hypertension CAD (coronary artery disease) Myocardial infarction Surgical History History of appendectomy History of cholecystectomy History of colon surgery History of total abdominal hysterectomy Social History (Updated 03/16/23 @ 06:[address] Jessica Thomas MD) household members: none Smoking Status: Never smoker alcohol intake: never substance use type: does not use Physical Exam Const alert, oriented x3 and no apparent distress General Appearance: cooperative Resp normal respiratory effort GI GI Narrative: Nondistended, soft, chronic scars of abdomen without evidence of hernia, nontender to palpation x 4 quadrants. Lab / Micro Data 12/07/23 02:30 12/07/23 02:30 Labs: Laboratory Results - last 24 hr 12/06/23 16:40: WBC 7.4, RBC 3.78 L, Hgb 10.1 L, Hct 32.2 L, MCV 85.2, MCH 26.7 L, MCHC 31.4 L, RDW Std Deviation 51.6 H, RDW Coeff of Neno 16.6 H, Plt Count 281, MPV 11.1, Immature Gran % (Auto) 0.500, Neut % (Auto) 44.7 L, Lymph % (Auto) 44.8 H, Maverick % (Auto) 8.4, Eos % (Auto) 0.8, Baso % (Auto) 0.8, Absolute Neuts (auto) 3.3, Absolute Lymphs (auto) 3.30, Nucleated RBC % 0, Platelet Estimate ADEQUATE, RBC Morphology N CHROM, Anisocytosis RARE, Ovalocytes RARE, Sodium 141, Potassium 4.7, Chloride 113 H, Carbon Dioxide 22.0, Anion Gap 6, BUN12, Creatinine 1.11 H, Estim Creat Clear Calc 34.57, Est GFR (MDRD) Af Amer 62, Est GFR (MDRD) Non-Af 51 L, BUN/Creatinine Ratio 10.8, Glucose 100, Calcium 9.5,Total Bilirubin 0.50, AST 43 H, ALT 22, Alkaline Phosphatase 78, Total Protein 7.4, Albumin 3.5, Globulin 3.9, Albumin/Globulin Ratio 0.9, Lipase 36 12/06/23 17:00: Lactic Acid 1.2 12/07/23 02:30: WBC 9.9, RBC 3.26 L, Hgb 8.8 L, Hct 28.0 L, MCV 85.9, MCH 27.0, MCHC 31.4 L, RDW Std Deviation 52.0 H, RDW Coeff of Neno 16.5 H, Plt Count 327, MPV 10.2, Immature Gran % (Auto) 0.200, Neut % (Auto) 55.8, Lymph % (Auto) 33.2,Maverick % (Auto) 9.6, Eos % (Auto) 0.7, Baso % (Auto) 0.5, Absolute Neuts (auto) 5.5, Absolute Lymphs (auto) 3.29, Nucleated RBC % 0, PT 13.9, INR 1.1, Sodium 143, Potassium 3.7, Chloride 112 H, Carbon Dioxide 23.0, Anion Gap 8, BUN 11, Creatinine 1.20 H, Estim Creat Clear Calc 31.98, Est GFR (MDRD) Af Amer 57 L, Est GFR (MDRD) Non-Af 47 L, BUN/Creatinine Ratio 9.2 L, Glucose 92, Calcium 8.6,Phosphorus 3.1, Magnesium 1.9, Total Bilirubin 0.90, AST 153 H, ALT 68 H, Alkaline Phosphatase 115, Total Protein 6.1 L, Albumin 3.2, Globulin 2.9, Albumin/Globulin Ratio 1.1 Micro: Microbiology 12/07/23 05:45 Mucosa - Nasopharyngeal Respiratory Panel (PCR) - Final Imaging Radiology Impression Abdomen/Pelvis CT 12/06/23 16:11 IMPRESSION: Postoperative change. Small bowel distention with partial obstruction versus ileus. Electronically Signed: Jose Rodriguez MD at 18:16 EDT , KUB X-Ray 12/07/23 05:55 IMPRESSION: Mildly prominent small bowel loops in the midabdomen without signs of obstruction. Electronically Signed: Paulo Rushing MD at 6:56 EDT , 12/07/23 1342 <Electronically signed by Paulo Umanzor MD> Cosigner Signature (if applicable): CC: Dr. Jessica Thomas MD; Dr. Paulo Umanzor MD; Dr. Kentrell Dhaliwal MD~ Signed [facility] Work Phone: 1(444) 120-128503-22-2024 Discharge summary Author Federico Monique [facility] December 07, 2023 12:18am Note Date/Time December 06, 2023 5:2 3pm [facility] Medical Records Department [address] [place] [address] Emergency Department Summary 12/06/23 MR#: [id number] Acct: [id number] Name: KAITLYN ESCOBAR Rep #:[id number] : 1950 73 From: Federico Harvey PCP: Dr. Kentrell Dhaliwal MD Status:REG ER Location: ED HPI HPI - GI History of Present Illness Chief Complaint: Abd Pain Informant: patient Narrative Narrative: Worsening pain mid abdomen to the left side for the past 5 days. She has been having soft nonbloody bowel movements. Had 5 today. Nausea without vomiting. Multiple abdominal surgeries including cholecystectomy appendectomy hysterectomy. Also reports 2 years ago had 40% small bowel resected due to whatshe describes as volvulus done in [place]. History of bowel obstructions in the past. Denies any vomiting or abdominal distention. Positive flatus. States ischronic pain however pain different worsening over last 5 days. States has chills however no fevers. Denies urinary symptoms. Denies history of pancreatitis. Denies alcohol history. Prior similar symptoms: Yes PFSH PFS Medical History Anxiety and depression Chronic anemia CKD (chronic kidney disease), stage III Depression DVT (deep venous thrombosis) GERD (gastroesophageal reflux disease) History of small bowel obstruction History of venous thromboembolism HLD (hyperlipidemia) Hyperthyroidism Hypothyroidism Irritable bowel Scarlet fever Home Medications alprazolam 1 mg tablet (Xanax) 1 mg PO BID 12/11/22 [History Last Taken Unknown] bupropion HCl 150 mg 24 hr tablet, extended release 150 mg PO BID 12/11/22 [History Last Taken Unknown] esomeprazole magnesium 20 mg capsule,delayed release 20 mg PO DAILY 12/11/22 [History Last Taken Unknown] ezetimibe 10 mg tablet 10 mg PO DAILY 12/11/22 [History Last Taken Unknown] levothyroxine 50 mcg tablet 50 mcg PO DAILY 12/11/22 [History Last Taken Unknown] ondansetron HCl 4 mg tablet 4 mg PO Q6H PRN Nausea 12/11/22 [History Last Taken Unknown] zolpidem 10 mg tablet (Ambien) 10 mg PO QHS 12/11/22 [History Last Taken Unknown] docusate sodium 100 mg capsule 100 mg PO BID 03/31/23 [History Last Taken Unknown] budesonide 160 mcg-glycopyr 9 mcg-formot 4.8 mcg/actuation HFA inhaler (Breztri Aerosphere) 2 inh inhalation BID 12/06/23 [History Last Taken Unknown] buspirone 15 mg tablet 7.5 mg PO BID 12/06/23 [History Last Taken Unknown] polyethylene glycol 3350 17 gram/dose oral powder (Miralax) 17 g PO BID 12/06/23[History Last Taken Unknown] ropinirole 0.5 mg tablet 0.5 mg PO BID 12/06/23 [History Last Taken Unknown] warfarin 5 mg tablet 5 mg PO DAILY 12/06/23 [History Last Taken Unknown] Allergy/AdvReac Type Severity Reaction Status Date / Time cefdinir [From Omnicef] Allergy Hives Verified 03/31/23 22:24 codeine Allergy NEEDS Verified 03/31/23 22:24 FOLLOW-UP latex Allergy Anaphylaxis Verified 03/31/23 22:24 prochlorperazine Allergy NEEDS Verified 03/31/23 22:24 [From Compazine] FOLLOW-UP shellfish derived Allergy Anaphylaxis Verified 03/31/23 22:24 levofloxacin [From Levaquin] AdvReac Vomiting Verified 03/31/23 22:24 Btpsofh-YIN-HtC Reductase AdvReac NEEDS Verified 03/31/23 22:24 Inhibitor FOLLOW-UP Family History (Updated 03/16/23 @ 06:[address] Jessica Thomas MD) Mother Heart disease COPD (chronic obstructive pulmonary disease) Father Heart disease Hypertension CAD (coronary artery disease) Myocardial infarction Surgical History History of appendectomy History of cholecystectomy History of colon surgery History of total abdominal hysterectomy Social History (Updated 03/16/23 @ 06:[address] Jessica Thomas MD) household members: none Smoking Status: Never smoker alcohol intake: never substance use type: does not use ROS ROS ED Constitutional Constitutional ED: Denies chills, fever(s) or sweats Eyes Eyes: Denies change in vision ENT ENT ED: Denies dysphagia or sore throat Cardiovascular Cardiovascular: Denies chest pain, leg edema, palpitations or racing heartbeat Respiratory/Chest Respiratory/Chest: Denies cough, dyspnea or dyspnea on exertion Gastrointestinal Gastrointestinal: Reports abdominal pain and nausea; Denies diarrhea or vomiting Genitourinary Genitourinary ED: Denies dysuria, hematuria or urinary frequency Musculoskeletal Musculoskeletal: Denies back pain, extremity pain or neck pain Integumentary Denies rash or wounds Neurologic Neurologic: Denies headache(s), paresthesias or weakness EXAM Physical Exam Const Vital Signs: 12/06/23 15:33 12/06/23 15:32 12/06/23 17:32 Temperature 97.4 F L 98.1 F Temperature Source Oral Oral Pulse Rate 83 83 79 Respiratory Rate 16 16 18 Blood Pressure 175/141 H 170/106 H 124/109 H Blood Pressure Mean 152 127 114 Pulse Ox 99 99 93 Oxygen Delivery Method Room Air Room Air Room Air 12/06/23 18:42 12/06/23 21:00 Temperature Temperature Source Pulse Rate 75 67 Respiratory Rate 16 18 Blood Pressure 150/70 H 151/69 H Blood Pressure Mean 96 96 Pulse Ox 98 95 Oxygen Delivery Method Room Air Room Air Positive well nourished and well developed Constitutional Narrative: Nontoxic, tearful. General Appearance ED: well developed HEENT Reports moist mucous membranes normocephalic and atraumatic Eyes PERRL, EOMs intact bilaterally and conjunctivae normal General Eye ED: Yes normal appearance of both eyes Neck no lymphadenopathy and supple General: Negative for tenderness Chest Wall Chest: Negative for tenderness Resp normal respiratory effort and normal air movement Effort and Inspection: symmetric chest movement; Negative for respiratory distress Cardio regular rate, regular rhythm and no murmurs Peripheral Pulses: pulses 2+ throughout GI normal to inspection, nondistended, normoactive bowel sounds GI Narrative: Tender palpation mid abdomen to the left. No guarding or rebound. Negative Bragg's or McBurney's. Palpation: Negative for guarding or rebound tenderness present Back/Spine no CVA tenderness and no thoracic nor lumbar tenderness Extremity normal to inspection General Extremety ED: Negative for edema or tenderness General Extremity: Negative for edema Neuro oriented x3 and no sensory deficits noted Sensorium / Orientation: awake and alert Skin no rashes or lesions noted and no wounds MDM MDM MDM Narrative Medical decision making narrative: Interventions / MDM: Differential diagnosis: Bowel obstruction Diagnosis considered but do not suspect: Colitis however CT negative. Pancreatitis, negative labs and CT. My EKG interpretation: N/A Imaging independently reviewed and interpreted by myself: CT abdomen pelvis: Partial small bowel obstruction distal bowels. No proximal dilatation. External documents reviewed: Records from March 2023 admission for similar failing p.o. intake x 2 in the hospital was transferred to [facility]. Test considered but not ordered:N/A ED course: Abdominal labs ordered, morphine Zofran fluids started. CT scan ordered for further evaluation. 1722: Labs white count 7.4 hemoglobin 10.1. Creatinine 1.11. Lipase 36. Liverenzymes initially normal AST slightly up at 43. 1730: CT results confirming concerns for partial small bowel obstruction. Reviewing records confirming she required transfer in March 2023 with her complexbowels surgeries and failing inpatient management here. I did discuss with on-call surgeon Dr. Umanzor who was a part of management at that time. He did reviewthe images, no proximal dilatation also and did not feel NG is required as patient did not want this. He recommended transferring to tertiary center with her surgical history. Discussed this with patient who understands and agrees. Nausea increasing, IV Reglan and additional morphine given for symptom control. Will initiate transfer process. 1800: I spoke with [facility] transfer line and surgery quarterback, Dr. Staley, discussed patient's history. She is excepted to the facility however reports likely will not have a bed this evening. He reports treatment would be conservative therapy at this time and recommended admission here first. I rediscussed with Dr. Umanzor, he will follow-up for conservative treatment however states would not operate down here if symptoms do not improve. This wasrelayed to patient and family. Will speak with hospitalist service for admission. 2359: Recheck with transfer facility, no current beds available. We discussed with hospitalist for admission. Patient's pain was returning, additional morphine was ordered for symptom control. Re-evaluation: stable Disposition discussed with patient/family/significant other: Patient Case discussed with consulting clinician: General surgery, hospitalist, [facility] surgery This note was generated with [employer] dictation software. It may contain incorrectwords, spelling, and punctuation that were not noted in checking the note beforesigning. Lab Data Attestation: I reviewed the patient's lab results. Labs: Laboratory Results - last 24 hr 12/06/23 12/06/23 16:40 17:00 WBC 7.4 RBC 3.78 L Hgb 10.1 L Hct 32.2 L MCV 85.2 MCH 26.7 L MCHC 31.4 L RDW Std Deviation 51.6 H RDW Coeff of Neno 16.6 H Plt Count 281 MPV 11.1 Immature Gran % (Auto) 0.500 Neut % (Auto) 44.7 L Lymph % (Auto) 44.8 H Maverick % (Auto) 8.4 Eos % (Auto) 0.8 Baso % (Auto) 0.8 Absolute Neuts (auto) 3.3 Absolute Lymphs (auto) 3.30 Nucleated RBC % 0 Platelet Estimate ADEQUATE RBC Morphology N CHROM Anisocytosis RARE Ovalocytes RARE Sodium 141 Potassium 4.7 Chloride 113 H Carbon Dioxide 22.0 Anion Gap 6 BUN 12 Creatinine 1.11 H Estim Creat Clear Calc 34.57 Est GFR (MDRD) Af Amer 62 Est GFR (MDRD) Non-Af 51 L BUN/Creatinine Ratio 10.8 Glucose 100 Lactic Acid 1.2 Calcium 9.5 Total Bilirubin 0.50 AST 43 H ALT 22 Alkaline Phosphatase 78 Total Protein 7.4 Albumin 3.5 Globulin 3.9 Albumin/Globulin Ratio 0.9 Lipase 36 Radiography Diagnostic Testing: Clinical Impression(s) from Imaging Studies Abdomen/Pelvis CT 12/06/23 16:11 IMPRESSION: Postoperative change. Small bowel distention with partial obstruction versus ileus. Electronically Signed: Jose Rodriguez MD at 18:16 EDT , Discharge Plan Triage Chief Complaint: Abd Pain ED Provider: Federico Monique Dx/Rx/DC Orders Prescriptions: No Action alprazolam [Xanax] 1 mg Tablet 1 mg PO BID Hold Instructions: Resume on 03/21/23. ondansetron HCl 4 mg Tablet 4 mg PO Q6H PRN (Reason: Nausea) Patient Comments: takes 8mg q6hr prn levothyroxine 50 mcg Tablet 50 mcg PO DAILY zolpidem [Ambien] 10 mg Tablet 10 mg PO QHS Hold Instructions: Resume on 03/21/23. esomeprazole magnesium 20 mg capsule,delayed release(DR/EC) 20 mg PO DAILY ezetimibe 10 mg Tablet 10 mg PO DAILY bupropion HCl 150 mg tablet extended release 24 hr 150 mg PO BID docusate sodium 100 mg capsule 100 mg PO BID Patient Comments: TAKE 1 CAPSULE BY MOUTH TWICE DAILY ropinirole 0.5 mg tablet 0.5 mg PO BID warfarin 5 mg tablet 5 mg PO DAILY buspirone 15 mg tablet 7.5 mg PO BID Breztri Aerosphere 160-9-4.8 mcg/actuation HFA aerosol inhaler 2 inh inhalation BID polyethylene glycol 3350 [Miralax] 17 gram/dose powder 17 g PO BID Primary Care Provider: Kentrell Dhaliwal Referrals: Kentrell Dhaliwal MD [Primary Care Provider] - What to do if you have Problems For any increased pain, shortness of breath, bleeding, nausea or vomiting, chestpain, or any unexpected problems, contact your Primary Care Provider. Call [facility] ([phone]) or report to the closest Emergency Room. Call 911 if necessary. 12/07/23 0018 <Electronically signed by Federico Harvey> Cosigner Signature (if applicable): CC: Dr. Kentrell Dhaliwal MD ~ Signed [facility] Work Phone: 1(592) 357-309003-22-2024 History and physical note Author Jessica [facility] December 07, 2023 12:09am Note Date/Time December 06, 2023 9:3 8pm [facility] Medical Records Department [address] [place] [address] H&P Exam - Hospitalist 12/07/23 0008 MR#: [id number] Acct: [id number] Name: KAITLYN ESCOBAR Rep #:[id number] : 1950 73 From: Jessica Thomas MD PCP: Dr. Kentrell Dhaliwal MD Status:REG ER Location: ED HPI - General General Date of Admission: 12/07/23 Date of Service: 12/06/23 Chief Complaint: Abdominal pain. HPI Narrative The patient is a 72 y/o F w/ PMHx: Hypothyroidism, Chronic anemia, CKD stage IIIunclear subtype, Anxiety and Depression, Hx VTE, HLD, GERD, Hx SBO s/p 7 prior abdominal surgeries including bowel resection who presents to the [facility] ED on 12/06/23 with history of ongoing worsening mid abdominal to left abdominal pain for the last 7 days with soft nonbloody bowel movements, several on day of presentation with nausea with dry heaving intermittently per discussion with daughter with ongoing flatus but given pain has been worsening with onset of chills with no fevers prompted ED evaluation. Patient reports discomfort primarily constant dull aching with intermittent sharp stabbing and cramping. She notes it is worse with palpation of the abdomen. Pain ranges from 6-10 out of 10 in severity. She does note that her nausea improved with Reglan mostly in the ED. Workup in the ED included T97.4, heart rate 83, BP 175/1 141, respiratory rate 16, 99% on room air with most recent repeat vitals heart rate 75, BP 150/70, respiratory rate 16, 98% on room air, CBC with WBC 7.4, hemoglobin 10.1, MCV 85.2, platelet 281 without marked shift, CMP with chloride 113, BUN/creatinine 12/1.11, hepatic profile not marked aside AST 43, lipase 36,lactic acid 1.2, CT abdomen and pelvis with postoperative changes, small bowel distention with a partial obstruction adjacent to the postoperative change of the loop in the pelvis versus ileus. In the ED patient was administered 1 L bolus as well as maintenance normal saline IV fluids, Zofran 4 mg IV x 1, Reglan5 mg IV x 1, morphine 4 mg IV x 2. ED discussed case with general surgery who reviewed CT imaging and was on the team at that time patient had previously beenevaluated and required transfer 03/2023 secondary to complex bowel surgery history and failed inpatient conservative SBO management at that time with recommendation for transfer to tertiary facility to be cautious. [facility] Medical History Anxiety and depression Chronic anemia CKD (chronic kidney disease), stage III Depression DVT (deep venous thrombosis) GERD (gastroesophageal reflux disease) History of small bowel obstruction History of venous thromboembolism HLD (hyperlipidemia) Hyperthyroidism Hypothyroidism Irritable bowel Scarlet fever Home Medications alprazolam 1 mg tablet (Xanax) 1 mg PO BID 12/11/22 [History Last Taken Unknown] bupropion HCl 150 mg 24 hr tablet, extended release 150 mg PO BID 12/11/22 [History Last Taken Unknown] esomeprazole magnesium 20 mg capsule,delayed release 20 mg PO DAILY 12/11/22 [History Last Taken Unknown] ezetimibe 10 mg tablet 10 mg PO DAILY 12/11/22 [History Last Taken Unknown] levothyroxine 50 mcg tablet 50 mcg PO DAILY 12/11/22 [History Last Taken Unknown] ondansetron HCl 4 mg tablet 4 mg PO Q6H PRN Nausea 12/11/22 [History Last Taken Unknown] zolpidem 10 mg tablet (Ambien) 10 mg PO QHS 12/11/22 [History Last Taken Unknown] docusate sodium 100 mg capsule 100 mg PO BID 03/31/23 [History Last Taken Unknown] budesonide 160 mcg-glycopyr 9 mcg-formot 4.8 mcg/actuation HFA inhaler (Breztri Aerosphere) 2 inh inhalation BID 12/06/23 [History Last Taken Unknown] buspirone 15 mg tablet 7.5 mg PO BID 12/06/23 [History Last Taken Unknown] polyethylene glycol 3350 17 gram/dose oral powder (Miralax) 17 g PO BID 12/06/23[History Last Taken Unknown] ropinirole 0.5 mg tablet 0.5 mg PO BID 12/06/23 [History Last Taken Unknown] warfarin 5 mg tablet 5 mg PO DAILY 12/06/23 [History Last Taken Unknown] Allergy/AdvReac Type Severity Reaction Status Date / Time cefdinir [From Omnicef] Allergy Hives Verified 03/31/23 22:24 codeine Allergy NEEDS Verified 03/31/23 22:24 FOLLOW-UP latex Allergy Anaphylaxis Verified 03/31/23 22:24 prochlorperazine Allergy NEEDS Verified 03/31/23 22:24 [From Compazine] FOLLOW-UP shellfish derived Allergy Anaphylaxis Verified 03/31/23 22:24 levofloxacin [From Levaquin] AdvReac Vomiting Verified 03/31/23 22:24 [id number] Reductase AdvReac NEEDS Verified 03/31/23 22:24 Inhibitor FOLLOW-UP Family History (Updated 03/16/23 @ 06:[address] Jessica Thomas MD) Mother Heart disease COPD (chronic obstructive pulmonary disease) Father Heart disease Hypertension CAD (coronary artery disease) Myocardial infarction Surgical History History of appendectomy History of cholecystectomy History of colon surgery History of total abdominal hysterectomy Social History (Updated 03/16/23 @ 06:[address] Jessica Thomas MD) household members: none Smoking Status: Never smoker alcohol intake: never substance use type: does not use ROS ROS Narrative Admission Review of Systems: CONSTITUTIONAL: No weight loss, fever, chills, + weakness or fatigue. HEENT: Eyes: No visual loss, blurred vision, double vision or yellow sclerae. Ears, Nose, Throat: No hearing loss, sneezing, congestion, runny nose or sore throat. SKIN: No rash or itching, lesions, wounds. CARDIOVASCULAR: No chest pain, chest pressure or chest discomfort, palpitations,edema, orthopnea, syncopal events. RESPIRATORY: No shortness of breath, cough or sputum, wheezing, hemoptysis. GASTROINTESTINAL: + anorexia, nausea with dry heaving, abdominal pain, more loose stools. No melena, BRBPR. GENITOURINARY: No dysuria, frequency, urgency or retention. NEUROLOGICAL: No headache, dizziness, syncope, paralysis, ataxia, numbness or tingling in the extremities, focal weakness, change in bowel or bladder control,seizure. MUSCULOSKELETAL: + muscle, back pain, joint pain or stiffness. HEMATOLOGIC: + anemia. No marked bleeding or bruising. LYMPHATICS: No enlarged nodes. No history of splenectomy. PSYCHIATRIC: + history of depression or anxiety. ENDOCRINOLOGIC: No reports of sweating, cold or heat intolerance. No polyuria orpolydipsia. ALLERGIES: + History of hives and anaphylaxis. Vital Signs Vital Signs Vital Signs: 12/06/23 15:33 12/06/23 15:32 12/06/23 17:32 Temperature 97.4 F L 98.1 F Temperature Source Oral Oral Pulse Rate 83 83 79 Respiratory Rate 16 16 18 Blood Pressure 175/141 H 170/106 H 124/109 H Blood Pressure Mean 152 127 114 Pulse Ox 99 99 93 Oxygen Delivery Method Room Air Room Air Room Air 12/06/23 18:42 12/06/23 21:00 Temperature Temperature Source Pulse Rate 75 67 Respiratory Rate 16 18 Blood Pressure 150/70 H 151/69 H Blood Pressure Mean 96 96 Pulse Ox 98 95 Oxygen Delivery Method Room Air Room Air Weight Weight: 117 lb 4.575 oz Body Mass Index (BMI) 22.1 Physical Exam Narrative Physical Examination: General: Awake, alert, oriented x 3 and cooperative, seated upright in the bed, fatigued, pain ongoing but lessened, worse with palpation, nausea abated with reglan. Skin: Normal color, normal turgor, no icterus, no cyanosis. HEENT: AT/NC, EOMI, PERRLA, dry MM, no carotid bruits or JVD noted. Lungs: CTA bilaterally, moderate effort, mild decrease BL bases, no rales, ronchi or wheezing. Heart: Regular rate and rhythm; no gallop, rub audible. Abdomen: Soft, TTP worse LLQ w/ voluntary guarding, no marked distention, diffusely reduced bowel sounds, no obvious HSM but difficult evaluation given pain. Extremities: No cyanosis, clubbing, or edema. Neurological: Patient awake, alert, oriented as noted, cognitive function intact; pupils equally reactive to light and accommodation, cranial nerves II-XII grossly normal, moving all 4 extremities, no focal deficits, strength moderatelyto severely global decrease secondary to acute presentation. Psychiatric: Affect appears anxious but more calm about her recent issues, underlying history of anxiety and depression. Results Lab / Micro Data 12/06/23 16:40 12/06/23 16:40 Labs: Laboratory Results - last 24 hr 12/06/23 16:40: WBC 7.4, RBC 3.78 L, Hgb 10.1 L, Hct 32.2 L, MCV 85.2, MCH 26.7 L, MCHC 31.4 L, RDW Std Deviation 51.6 H, RDW Coeff of Neno 16.6 H, Plt Count 281, MPV 11.1, Immature Gran % (Auto) 0.500, Neut % (Auto) 44.7 L, Lymph % (Auto) 44.8 H, Maverick % (Auto) 8.4, Eos % (Auto) 0.8, Baso % (Auto) 0.8, Absolute Neuts (auto) 3.3, Absolute Lymphs (auto) 3.30, Nucleated RBC % 0, Platelet Estimate ADEQUATE, RBC Morphology N CHROM, Anisocytosis RARE, Ovalocytes RARE, Sodium 141, Potassium 4.7, Chloride 113 H, Carbon Dioxide 22.0, Anion Gap 6, BUN12, Creatinine 1.11 H, Estim Creat Clear Calc 34.57, Est GFR (MDRD) Af Amer 62, Est GFR (MDRD) Non-Af 51 L, BUN/Creatinine Ratio 10.8, Glucose 100, Calcium 9.5,Total Bilirubin 0.50, AST 43 H, ALT 22, Alkaline Phosphatase 78, Total Protein 7.4, Albumin 3.5, Globulin 3.9, Albumin/Globulin Ratio 0.9, Lipase 36 12/06/23 17:00: Lactic Acid 1.2 Imaging Radiology Impression Abdomen/Pelvis CT 12/06/23 16:11 IMPRESSION: Postoperative change. Small bowel distention with partial obstruction versus ileus. Electronically Signed: Jose Rodriguez MD at 18:16 EDT , Assessment & Plan Assessment/Plan (1) SBO (small bowel obstruction): PLAN: Plan The patient is a 72 y/o F w/ PMHx: Hypothyroidism, Chronic anemia, CKD stage IIIunclear subtype, Anxiety and Depression, Hx VTE, HLD, GERD, Hx SBO s/p 7 prior abdominal surgeries including bowel resection who presents to the [facility] ED on 12/06/23 with history of ongoing worsening mid abdominal to left abdominal pain for the last 7 days with soft nonbloody bowel movements, several on day of presentation with nausea with dry heaving intermittently per discussion with daughter with ongoing flatus but given pain has been worsening with onset of chills with no fevers prompted ED evaluation. #1. Acute intractable abdominal pain secondary to possible partial low-grade small bowel obstruction versus ileus although surgery reviewed imaging and concern for more likely partial bowel obstruction: Given patient is still awaiting [facility] transfer bed at recommendation of general surgery willadmit to [place], maintain on IVFs, NGT per surgery discretion and currently they noted that patient may defer this given improvement of nausea and not dry heaving but if this does occur low threshold to place, if recurrent loose stoolswill obtain C. difficile as well as enteric stool assessments, will obtain respiratory viral panel, maintain strict I&Os, IV pain/anti-emetics PRN, serial KUB as needed to montior bowel function, PPI IV, maintain NPO on bowel rest. General surgery consulted while at [facility] but again per their recommendation is still awaiting transfer bed at [facility]. #2. Elevated BP without hypertensive diagnosis: Patient with notably elevated BP upon ED presentation, likely pain related however we will continue to closelymonitor and add regimen if appropriate, as needed IV hydralazine especially given n.p.o. status as noted. #3. CKD stage III unclear subtype: Admission BUN/creatinine 12/.11, baseline creatinine of prior primarily 0.8-1.4, stable, continue to trend. #4. Anxiety and depression: Will temporally hold patient home bupropion, oral Xanax and BuSpar home regimen, will have as needed low-dose Ativan for anxiety. #5. Hypothyroidism: Will temporally hold patient home levothyroxine regimen; however, if prolonged may need to consider one half IV dosing.. #6. Hyperlipidemia: We will temporarily hold patient home ezetimibe regimen. #7. History VTE: Notes history of remote DVT 3-4 years prior and was told at that time she would require continued chronic anticoagulation, unclear exact reason but from discussion it sounds as though it was a severe episode, will obtain INR and hold Coumadin with transition to heparin drip once appropriate. #8. Restless leg syndrome: We will temporarily hold patient home Requip regimen. #9. Chronic normocytic anemia: Admission hemoglobin 10.1, MCV 85.2, baseline hemoglobin noted prior 06-27, stable, continue to trend. #10. GERD: We will maintain IV PPI. #11. DVT prophylaxis: We will temporally hold patient home coumadin regimen with INR requested, repeat level in AM, once INR 2 will overlap with heparin drip in case of OR needs. #12. CODE status: Patient CATHLEEN is her daughter who is present and living will is currently in place. Discussed CODE status at length including difference between FULL code, DNR-CCA and DNR-CC status. Following discussions about the differences in these status, requested DNR-CCA, no intubation status. She reported that she did make arrangements over the last month as well and has been proactive. Advanced Care Planning Face to Face Time: 16 minutes. Charges/Coding Visit Charges Inpatient E&M: 94247 Init Hosp L3 Procedures Hospitalists Procedures: 83558 Advncd Care Plan 30 Min 12/07/23 0009 <Electronically signed by Jessica Thomas MD> Cosigner Signature (if applicable): CC: Dr. Jessica Thomas MD; Dr. Kentrell Dhaliwal MD~ Signed [facility] Work Phone: 1(474) 853-530503-21-2024 History and physical note Author [facility] December 07, 2023 12:09am Note Date/Time December 06, 2023 9:3 8pm [facility] Medical Records Department [address] [place] [id number] H&P Exam - Hospitalist 12/07/23 0008 MR#: [id number] Acct: [id number] Name: KAITLYN ESCOBAR Rep #:[id number] : 1950 73 From: Jessica Thomas MD PCP: Dr. Kentrell Dhaliwal MD Status:REG ER Location: ED HPI - General General Date of Admission: 12/07/23 Date of Service: 12/06/23 Chief Complaint: Abdominal pain. HPI Narrative The patient is a 72 y/o F w/ PMHx: Hypothyroidism, Chronic anemia, CKD stage IIIunclear subtype, Anxiety and Depression, Hx VTE, HLD, GERD, Hx SBO s/p 7 prior abdominal surgeries including bowel resection who presents to the [facility] ED on 12/06/23 with history of ongoing worsening mid abdominal to left abdominal pain for the last 7 days with soft nonbloody bowel movements, several on day of presentation with nausea with dry heaving intermittently per discussion with daughter with ongoing flatus but given pain has been worsening with onset of chills with no fevers prompted ED evaluation. Patient reports discomfort primarily constant dull aching with intermittent sharp stabbing and cramping. She notes it is worse with palpation of the abdomen. Pain ranges from 6-10 out of 10 in severity. She does note that her nausea improved with Reglan mostly in the ED. Workup in the ED included T97.4, heart rate 83, BP 175/1 141, respiratory rate 16, 99% on room air with most recent repeat vitals heart rate 75, BP 150/70, respiratory rate 16, 98% on room air, CBC with WBC 7.4, hemoglobin 10.1, MCV 85.2, platelet 281 without marked shift, CMP with chloride 113, BUN/creatinine 12/1.11, hepatic profile not marked aside AST 43, lipase 36,lactic acid 1.2, CT abdomen and pelvis with postoperative changes, small bowel distention with a partial obstruction adjacent to the postoperative change of the loop in the pelvis versus ileus. In the ED patient was administered 1 L bolus as well as maintenance normal saline IV fluids, Zofran 4 mg IV x 1, Reglan5 mg IV x 1, morphine 4 mg IV x 2. ED discussed case with general surgery who reviewed CT imaging and was on the team at that time patient had previously beenevaluated and required transfer 03/2023 secondary to complex bowel surgery history and failed inpatient conservative SBO management at that time with recommendation for transfer to tertiary facility to be cautious. [facility] Medical History Anxiety and depression Chronic anemia CKD (chronic kidney disease), stage III Depression DVT (deep venous thrombosis) GERD (gastroesophageal reflux disease) History of small bowel obstruction History of venous thromboembolism HLD (hyperlipidemia) Hyperthyroidism Hypothyroidism Irritable bowel Scarlet fever Home Medications alprazolam 1 mg tablet (Xanax) 1 mg PO BID 12/11/22 [History Last Taken Unknown] bupropion HCl 150 mg 24 hr tablet, extended release 150 mg PO BID 12/11/22 [History Last Taken Unknown] esomeprazole magnesium 20 mg capsule,delayed release 20 mg PO DAILY 12/11/22 [History Last Taken Unknown] ezetimibe 10 mg tablet 10 mg PO DAILY 12/11/22 [History Last Taken Unknown] levothyroxine 50 mcg tablet 50 mcg PO DAILY 12/11/22 [History Last Taken Unknown] ondansetron HCl 4 mg tablet 4 mg PO Q6H PRN Nausea 12/11/22 [History Last Taken Unknown] zolpidem 10 mg tablet (Ambien) 10 mg PO QHS 12/11/22 [History Last Taken Unknown] docusate sodium 100 mg capsule 100 mg PO BID 03/31/23 [History Last Taken Unknown] budesonide 160 mcg-glycopyr 9 mcg-formot 4.8 mcg/actuation HFA inhaler (Breztri Aerosphere) 2 inh inhalation BID 12/06/23 [History Last Taken Unknown] buspirone 15 mg tablet 7.5 mg PO BID 12/06/23 [History Last Taken Unknown] polyethylene glycol 3350 17 gram/dose oral powder (Miralax) 17 g PO BID 12/06/23[History Last Taken Unknown] ropinirole 0.5 mg tablet 0.5 mg PO BID 12/06/23 [History Last Taken Unknown] warfarin 5 mg tablet 5 mg PO DAILY 12/06/23 [History Last Taken Unknown] Allergy/AdvReac Type Severity Reaction Status Date / Time cefdinir [From Omnicef] Allergy Hives Verified 03/31/23 22:24 codeine Allergy NEEDS Verified 03/31/23 22:24 FOLLOW-UP latex Allergy Anaphylaxis Verified 03/31/23 22:24 prochlorperazine Allergy NEEDS Verified 03/31/23 22:24 [From Compazine] FOLLOW-UP shellfish derived Allergy Anaphylaxis Verified 03/31/23 22:24 levofloxacin [From Levaquin] AdvReac Vomiting Verified 03/31/23 22:24 Eprckyg-WAY-WzL Reductase AdvReac NEEDS Verified 03/31/23 22:24 Inhibitor FOLLOW-UP Family History (Updated 03/16/23 @ 06:[address] Jessica Thomas MD) Mother Heart disease COPD (chronic obstructive pulmonary disease) Father Heart disease Hypertension CAD (coronary artery disease) Myocardial infarction Surgical History History of appendectomy History of cholecystectomy History of colon surgery History of total abdominal hysterectomy Social History (Updated 03/16/23 @ 06:[address] Jessica Thomas MD) household members: none Smoking Status: Never smoker alcohol intake: never substance use type: does not use ROS ROS Narrative Admission Review of Systems: CONSTITUTIONAL: No weight loss, fever, chills, + weakness or fatigue. HEENT: Eyes: No visual loss, blurred vision, double vision or yellow sclerae. Ears, Nose, Throat: No hearing loss, sneezing, congestion, runny nose or sore throat. SKIN: No rash or itching, lesions, wounds. CARDIOVASCULAR: No chest pain, chest pressure or chest discomfort, palpitations,edema, orthopnea, syncopal events. RESPIRATORY: No shortness of breath, cough or sputum, wheezing, hemoptysis. GASTROINTESTINAL: + anorexia, nausea with dry heaving, abdominal pain, more loose stools. No melena, BRBPR. GENITOURINARY: No dysuria, frequency, urgency or retention. NEUROLOGICAL: No headache, dizziness, syncope, paralysis, ataxia, numbness or tingling in the extremities, focal weakness, change in bowel or bladder control,seizure. MUSCULOSKELETAL: + muscle, back pain, joint pain or stiffness. HEMATOLOGIC: + anemia. No marked bleeding or bruising. LYMPHATICS: No enlarged nodes. No history of splenectomy. PSYCHIATRIC: + history of depression or anxiety. ENDOCRINOLOGIC: No reports of sweating, cold or heat intolerance. No polyuria orpolydipsia. ALLERGIES: + History of hives and anaphylaxis. Vital Signs Vital Signs Vital Signs: 12/06/23 15:33 12/06/23 15:32 12/06/23 17:32 Temperature 97.4 F L 98.1 F Temperature Source Oral Oral Pulse Rate 83 83 79 Respiratory Rate 16 16 18 Blood Pressure 175/141 H 170/106 H 124/109 H Blood Pressure Mean 152 127 114 Pulse Ox 99 99 93 Oxygen Delivery Method Room Air Room Air Room Air 12/06/23 18:42 12/06/23 21:00 Temperature Temperature Source Pulse Rate 75 67 Respiratory Rate 16 18 Blood Pressure 150/70 H 151/69 H Blood Pressure Mean 96 96 Pulse Ox 98 95 Oxygen Delivery Method Room Air Room Air Weight Weight: 117 lb 4.575 oz Body Mass Index (BMI) 22.1 Physical Exam Narrative Physical Examination: General: Awake, alert, oriented x 3 and cooperative, seated upright in the bed, fatigued, pain ongoing but lessened, worse with palpation, nausea abated with reglan. Skin: Normal color, normal turgor, no icterus, no cyanosis. HEENT: AT/NC, EOMI, PERRLA, dry MM, no carotid bruits or JVD noted. Lungs: CTA bilaterally, moderate effort, mild decrease BL bases, no rales, ronchi or wheezing. Heart: Regular rate and rhythm; no gallop, rub audible. Abdomen: Soft, TTP worse LLQ w/ voluntary guarding, no marked distention, diffusely reduced bowel sounds, no obvious HSM but difficult evaluation given pain. Extremities: No cyanosis, clubbing, or edema. Neurological: Patient awake, alert, oriented as noted, cognitive function intact; pupils equally reactive to light and accommodation, cranial nerves II-XII grossly normal, moving all 4 extremities, no focal deficits, strength moderatelyto severely global decrease secondary to acute presentation. Psychiatric: Affect appears anxious but more calm about her recent issues, underlying history of anxiety and depression. Results Lab / Micro Data 12/06/23 16:40 12/06/23 16:40 Labs: Laboratory Results - last 24 hr 12/06/23 16:40: WBC 7.4, RBC 3.78 L, Hgb 10.1 L, Hct 32.2 L, MCV 85.2, MCH 26.7 L, MCHC 31.4 L, RDW Std Deviation 51.6 H, RDW Coeff of Neno 16.6 H, Plt Count 281, MPV 11.1, Immature Gran % (Auto) 0.500, Neut % (Auto) 44.7 L, Lymph % (Auto) 44.8 H, Maverick % (Auto) 8.4, Eos % (Auto) 0.8, Baso % (Auto) 0.8, Absolute Neuts (auto) 3.3, Absolute Lymphs (auto) 3.30, Nucleated RBC % 0, Platelet Estimate ADEQUATE, RBC Morphology N CHROM, Anisocytosis RARE, Ovalocytes RARE, Sodium 141, Potassium 4.7, Chloride 113 H, Carbon Dioxide 22.0, Anion Gap 6, BUN12, Creatinine 1.11 H, Estim Creat Clear Calc 34.57, Est GFR (MDRD) Af Amer 62, Est GFR (MDRD) Non-Af 51 L, BUN/Creatinine Ratio 10.8, Glucose 100, Calcium 9.5,Total Bilirubin 0.50, AST 43 H, ALT 22, Alkaline Phosphatase 78, Total Protein 7.4, Albumin 3.5, Globulin 3.9, Albumin/Globulin Ratio 0.9, Lipase 36 12/06/23 17:00: Lactic Acid 1.2 Imaging Radiology Impression Abdomen/Pelvis CT 12/06/23 16:11 IMPRESSION: Postoperative change. Small bowel distention with partial obstruction versus ileus. Electronically Signed: Jose Rodriguez MD at 18:16 EDT Reading Location ID and State: [address] [place] [address] , Service support , Assessment & Plan Assessment/Plan (1) SBO (small bowel obstruction): PLAN: Plan The patient is a 72 y/o F w/ PMHx: Hypothyroidism, Chronic anemia, CKD stage IIIunclear subtype, Anxiety and Depression, Hx VTE, HLD, GERD, Hx SBO s/p 7 prior abdominal surgeries including bowel resection who presents to the [facility] ED on 12/06/23 with history of ongoing worsening mid abdominal to left abdominal pain for the last 7 days with soft nonbloody bowel movements, several on day of presentation with nausea with dry heaving intermittently per discussion with daughter with ongoing flatus but given pain has been worsening with onset of chills with no fevers prompted ED evaluation. #1. Acute intractable abdominal pain secondary to possible partial low-grade small bowel obstruction versus ileus although surgery reviewed imaging and concern for more likely partial bowel obstruction: Given patient is still awaiting [facility] transfer bed at recommendation of general surgery willadmit to [place], maintain on IVFs, NGT per surgery discretion and currently they noted that patient may defer this given improvement of nausea and not dry heaving but if this does occur low threshold to place, if recurrent loose stoolswill obtain C. difficile as well as enteric stool assessments, will obtain respiratory viral panel, maintain strict I&Os, IV pain/anti-emetics PRN, serial KUB as needed to montior bowel function, PPI IV, maintain NPO on bowel rest. General surgery consulted while at [facility] but again per their recommendation is still awaiting transfer bed at [facility]. #2. Elevated BP without hypertensive diagnosis: Patient with notably elevated BP upon ED presentation, likely pain related however we will continue to closelymonitor and add regimen if appropriate, as needed IV hydralazine especially given n.p.o. status as noted. #3. CKD stage III unclear subtype: Admission BUN/creatinine 08/17.11, baseline creatinine of prior primarily 0.8-1.4, stable, continue to trend. #4. Anxiety and depression: Will temporally hold patient home bupropion, oral Xanax and BuSpar home regimen, will have as needed low-dose Ativan for anxiety. #5. Hypothyroidism: Will temporally hold patient home levothyroxine regimen; however, if prolonged may need to consider one half IV dosing.. #6. Hyperlipidemia: We will temporarily hold patient home ezetimibe regimen. #7. History VTE: Notes history of remote DVT 3-4 years prior and was told at that time she would require continued chronic anticoagulation, unclear exact reason but from discussion it sounds as though it was a severe episode, will obtain INR and hold Coumadin with transition to heparin drip once appropriate. #8. Restless leg syndrome: We will temporarily hold patient home Requip regimen. #9. Chronic normocytic anemia: Admission hemoglobin 10.1, MCV 85.2, baseline hemoglobin noted prior 10-, stable, continue to trend. #10. GERD: We will maintain IV PPI. #11. DVT prophylaxis: We will temporally hold patient home coumadin regimen with INR requested, repeat level in AM, once INR 2 will overlap with heparin drip in case of OR needs. #12. CODE status: Patient CATHLEEN is her daughter who is present and living will is currently in place. Discussed CODE status at length including difference between FULL code, DNR-CCA and DNR-CC status. Following discussions about the differences in these status, requested DNR-CCA, no intubation status. She reported that she did make arrangements over the last month as well and has been proactive. Advanced Care Planning Face to Face Time: 16 minutes. Charges/Coding Visit Charges Inpatient E&M: 78996 Init Hosp L3 Procedures Hospitalists Procedures: 45194 Advncd Care Plan 30 Min 12/07/23 0009 <Electronically signed by Jessica Thomas MD> Cosigner Signature (if applicable): CC: Dr. Jessica Thomas MD; Dr. Kentrell Dhaliwal MD~ Signed [facility] Work Phone: 1(323) 991-140503-21-2024 Discharge summary Author Federico Monique [facility] December 07, 2023 12:18am Note Date/Time December 06, 2023 5:2 3pm [facility] Medical Records Department [address] [place] [address] Emergency Department Summary 12/06/23 MR#: [id number] Acct: [id number] Name: KAITLYN ESCOBAR Rep #:[id number] : 1950 73 From: Federico Harvey PCP: Dr. Kentrell Dhaliwal MD Status:REG ER Location: ED HPI HPI - GI History of Present Illness Chief Complaint: Abd Pain Informant: patient Narrative Narrative: Worsening pain mid abdomen to the left side for the past 5 days. She has been having soft nonbloody bowel movements. Had 5 today. Nausea without vomiting. Multiple abdominal surgeries including cholecystectomy appendectomy hysterectomy. Also reports 2 years ago had 40% small bowel resected due to whatshe describes as volvulus done in [place]. History of bowel obstructions in the past. Denies any vomiting or abdominal distention. Positive flatus. States ischronic pain however pain different worsening over last 5 days. States has chills however no fevers. Denies urinary symptoms. Denies history of pancreatitis. Denies alcohol history. Prior similar symptoms: Yes PFSH PFSH Medical History Anxiety and depression Chronic anemia CKD (chronic kidney disease), stage III Depression DVT (deep venous thrombosis) GERD (gastroesophageal reflux disease) History of small bowel obstruction History of venous thromboembolism HLD (hyperlipidemia) Hyperthyroidism Hypothyroidism Irritable bowel Scarlet fever Home Medications alprazolam 1 mg tablet (Xanax) 1 mg PO BID 12/11/22 [History Last Taken Unknown] bupropion HCl 150 mg 24 hr tablet, extended release 150 mg PO BID 12/11/22 [History Last Taken Unknown] esomeprazole magnesium 20 mg capsule,delayed release 20 mg PO DAILY 12/11/22 [History Last Taken Unknown] ezetimibe 10 mg tablet 10 mg PO DAILY 12/11/22 [History Last Taken Unknown] levothyroxine 50 mcg tablet 50 mcg PO DAILY 12/11/22 [History Last Taken Unknown] ondansetron HCl 4 mg tablet 4 mg PO Q6H PRN Nausea 12/11/22 [History Last Taken Unknown] zolpidem 10 mg tablet (Ambien) 10 mg PO QHS 12/11/22 [History Last Taken Unknown] docusate sodium 100 mg capsule 100 mg PO BID 03/31/23 [History Last Taken Unknown] budesonide 160 mcg-glycopyr 9 mcg-formot 4.8 mcg/actuation HFA inhaler (Breztri Aerosphere) 2 inh inhalation BID 12/06/23 [History Last Taken Unknown] buspirone 15 mg tablet 7.5 mg PO BID 12/06/23 [History Last Taken Unknown] polyethylene glycol 3350 17 gram/dose oral powder (Miralax) 17 g PO BID 12/06/23[History Last Taken Unknown] ropinirole 0.5 mg tablet 0.5 mg PO BID 12/06/23 [History Last Taken Unknown] warfarin 5 mg tablet 5 mg PO DAILY 12/06/23 [History Last Taken Unknown] Allergy/AdvReac Type Severity Reaction Status Date / Time cefdinir [From Omnicef] Allergy Hives Verified 03/31/23 22:24 codeine Allergy NEEDS Verified 03/31/23 22:24 FOLLOW-UP latex Allergy Anaphylaxis Verified 03/31/23 22:24 prochlorperazine Allergy NEEDS Verified 03/31/23 22:24 [From Compazine] FOLLOW-UP shellfish derived Allergy Anaphylaxis Verified 03/31/23 22:24 levofloxacin [From Levaquin] AdvReac Vomiting Verified 03/31/23 22:24 Iyizioj-NQB-MbI Reductase AdvReac NEEDS Verified 03/31/23 22:24 Inhibitor FOLLOW-UP Family History (Updated 03/16/23 @ 06:[address] Jessica Thomas MD) Mother Heart disease COPD (chronic obstructive pulmonary disease) Father Heart disease Hypertension CAD (coronary artery disease) Myocardial infarction Surgical History History of appendectomy History of cholecystectomy History of colon surgery History of total abdominal hysterectomy Social History (Updated 03/16/23 @ 06:[address] Jessica Thomas MD) household members: none Smoking Status: Never smoker alcohol intake: never substance use type: does not use ROS ROS ED Constitutional Constitutional ED: Denies chills, fever(s) or sweats Eyes Eyes: Denies change in vision ENT ENT ED: Denies dysphagia or sore throat Cardiovascular Cardiovascular: Denies chest pain, leg edema, palpitations or racing heartbeat Respiratory/Chest Respiratory/Chest: Denies cough, dyspnea or dyspnea on exertion Gastrointestinal Gastrointestinal: Reports abdominal pain and nausea; Denies diarrhea or vomiting Genitourinary Genitourinary ED: Denies dysuria, hematuria or urinary frequency Musculoskeletal Musculoskeletal: Denies back pain, extremity pain or neck pain Integumentary Denies rash or wounds Neurologic Neurologic: Denies headache(s), paresthesias or weakness EXAM Physical Exam Const Vital Signs: 12/06/23 15:33 12/06/23 15:32 12/06/23 17:32 Temperature 97.4 F L 98.1 F Temperature Source Oral Oral Pulse Rate 83 83 79 Respiratory Rate 16 16 18 Blood Pressure 175/141 H 170/106 H 124/109 H Blood Pressure Mean 152 127 114 Pulse Ox 99 99 93 Oxygen Delivery Method Room Air Room Air Room Air 12/06/23 18:42 12/06/23 21:00 Temperature Temperature Source Pulse Rate 75 67 Respiratory Rate 16 18 Blood Pressure 150/70 H 151/69 H Blood Pressure Mean 96 96 Pulse Ox 98 95 Oxygen Delivery Method Room Air Room Air Positive well nourished and well developed Constitutional Narrative: Nontoxic, tearful. General Appearance ED: well developed HEENT Reports moist mucous membranes normocephalic and atraumatic Eyes PERRL, EOMs intact bilaterally and conjunctivae normal General Eye ED: Yes normal appearance of both eyes Neck no lymphadenopathy and supple General: Negative for tenderness Chest Wall Chest: Negative for tenderness Resp normal respiratory effort and normal air movement Effort and Inspection: symmetric chest movement; Negative for respiratory distress Cardio regular rate, regular rhythm and no murmurs Peripheral Pulses: pulses 2+ throughout GI normal to inspection, nondistended, normoactive bowel sounds GI Narrative: Tender palpation mid abdomen to the left. No guarding or rebound. Negative Bragg's or McBurney's. Palpation: Negative for guarding or rebound tenderness present Back/Spine no CVA tenderness and no thoracic nor lumbar tenderness Extremity normal to inspection General Extremety ED: Negative for edema or tenderness General Extremity: Negative for edema Neuro oriented x3 and no sensory deficits noted Sensorium / Orientation: awake and alert Skin no rashes or lesions noted and no wounds MDM MDM MDM Narrative Medical decision making narrative: Interventions / MDM: Differential diagnosis: Bowel obstruction Diagnosis considered but do not suspect: Colitis however CT negative. Pancreatitis, negative labs and CT. My EKG interpretation: N/A Imaging independently reviewed and interpreted by myself: CT abdomen pelvis: Partial small bowel obstruction distal bowels. No proximal dilatation. External documents reviewed: Records from March 2023 admission for similar failing p.o. intake x 2 in the hospital was transferred to [facility]. Test considered but not ordered:N/A ED course: Abdominal labs ordered, morphine Zofran fluids started. CT scan ordered for further evaluation. 1722: Labs white count 7.4 hemoglobin 10.1. Creatinine 1.11. Lipase 36. Liverenzymes initially normal AST slightly up at 43. 1730: CT results confirming concerns for partial small bowel obstruction. Reviewing records confirming she required transfer in March 2023 with her complexbowels surgeries and failing inpatient management here. I did discuss with on-call surgeon Dr. Umanzor who was a part of management at that time. He did reviewthe images, no proximal dilatation also and did not feel NG is required as patient did not want this. He recommended transferring to tertiary center with her surgical history. Discussed this with patient who understands and agrees. Nausea increasing, IV Reglan and additional morphine given for symptom control. Will initiate transfer process. 1800: I spoke with [facility] transfer line and surgery quarterback, Dr. Staley, discussed patient's history. She is excepted to the facility however reports likely will not have a bed this evening. He reports treatment would be conservative therapy at this time and recommended admission here first. I rediscussed with Dr. Umanzor, he will follow-up for conservative treatment however states would not operate down here if symptoms do not improve. This wasrelayed to patient and family. Will speak with hospitalist service for admission. 2359: Recheck with transfer facility, no current beds available. We discussed with hospitalist for admission. Patient's pain was returning, additional morphine was ordered for symptom control. Re-evaluation: stable Disposition discussed with patient/family/significant other: Patient Case discussed with consulting clinician: General surgery, hospitalist, [facility] general surgery This note was generated with Dragon dictation software. It may contain incorrectwords, spelling, and punctuation that were not noted in checking the note beforesigning. Lab Data Attestation: I reviewed the patient's lab results. Labs: Laboratory Results - last 24 hr 12/06/23 12/06/23 16:40 17:00 WBC 7.4 RBC 3.78 L Hgb 10.1 L Hct 32.2 L MCV 85.2 MCH 26.7 L MCHC 31.4 L RDW Std Deviation 51.6 H RDW Coeff of Neno 16.6 H Plt Count 281 MPV 11.1 Immature Gran % (Auto) 0.500 Neut % (Auto) 44.7 L Lymph % (Auto) 44.8 H Maverick % (Auto) 8.4 Eos % (Auto) 0.8 Baso % (Auto) 0.8 Absolute Neuts (auto) 3.3 Absolute Lymphs (auto) 3.30 Nucleated RBC % 0 Platelet Estimate ADEQUATE RBC Morphology N CHROM Anisocytosis RARE Ovalocytes RARE Sodium 141 Potassium 4.7 Chloride 113 H Carbon Dioxide 22.0 Anion Gap 6 BUN 12 Creatinine 1.11 H Estim Creat Clear Calc 34.57 Est GFR (MDRD) Af Amer 62 Est GFR (MDRD) Non-Af 51 L BUN/Creatinine Ratio 10.8 Glucose 100 Lactic Acid 1.2 Calcium 9.5 Total Bilirubin 0.50 AST 43 H ALT 22 Alkaline Phosphatase 78 Total Protein 7.4 Albumin 3.5 Globulin 3.9 Albumin/Globulin Ratio 0.9 Lipase 36 Radiography Diagnostic Testing: Clinical Impression(s) from Imaging Studies Abdomen/Pelvis CT 12/06/23 16:11 IMPRESSION: Postoperative change. Small bowel distention with partial obstruction versus ileus. Electronically Signed: Jose Rodriguez MD at 18:16 EDT , Discharge Plan Triage Chief Complaint: Abd Pain ED Provider: Federico Monique Dx/Rx/DC Orders Prescriptions: No Action alprazolam [Xanax] 1 mg Tablet 1 mg PO BID Hold Instructions: Resume on 03/21/23. ondansetron HCl 4 mg Tablet 4 mg PO Q6H PRN (Reason: Nausea) Patient Comments: takes 8mg q6hr prn levothyroxine 50 mcg Tablet 50 mcg PO DAILY zolpidem [Ambien] 10 mg Tablet 10 mg PO QHS Hold Instructions: Resume on 03/21/23. esomeprazole magnesium 20 mg capsule,delayed release(DR/EC) 20 mg PO DAILY ezetimibe 10 mg Tablet 10 mg PO DAILY bupropion HCl 150 mg tablet extended release 24 hr 150 mg PO BID docusate sodium 100 mg capsule 100 mg PO BID Patient Comments: TAKE 1 CAPSULE BY MOUTH TWICE DAILY ropinirole 0.5 mg tablet 0.5 mg PO BID warfarin 5 mg tablet 5 mg PO DAILY buspirone 15 mg tablet 7.5 mg PO BID Breztri Aerosphere 160-9-4.8 mcg/actuation HFA aerosol inhaler 2 inh inhalation BID polyethylene glycol 3350 [Miralax] 17 gram/dose powder 17 g PO BID Primary Care Provider: Kentrell Dhaliwal Referrals: Kentrell Dhaliwal MD [Primary Care Provider] - What to do if you have Problems For any increased pain, shortness of breath, bleeding, nausea or vomiting, chestpain, or any unexpected problems, contact your Primary Care Provider. Call [facility] ([phone]) or report to the closest Emergency Room. Call 911 if necessary. 12/07/23 0018 <Electronically signed by Federico Harvey> Cosigner Signature (if applicable): CC: Dr. Kentrell Dhaliwal MD ~ Signed [facility] Work Phone: 1(818) 259-931903-21-2024 Miscellaneous Notes* Telephone Encounter - Garima Drew MA - 12/06/2023 4:31 PM EDT Left message on patients cell number. Other two numbers, no answer. Will attempt to call patient 12/07/23. Garima Drew MA * Telephone Encounter - Kentrell Dhaliwal II, MD - 12/06/2023 4:20 PM EDT The labs were acceptable ranges except for the TSH which shows that her thyroid is underactive. We need to increase her Synthroid to 75 mcg daily and she will need to recheck her TSH in 3 months I did send in some medicine to treat her symptoms that she is complaining of now. * Telephone Encounter - Patience Choi - 12/06/2023 11:37 AM EDT Summary: PATIENT UPDATE/QUESTION PATIENT ATE DEEP FRIED FISH ON Sunday12/01/23 SINCE 12/01/23 CURRENT SYMPTOMS ARE: BAD ABDOMINAL PAIN NAUSEA HEARTBURN EXTREME DIARRHEA NO VOMITING, BUT SHE DOES FEEL LIKE SHE HAS TO VOMIT ASKING WHAT DR SUGGESTS THANK YOU Patience Choi [facility] Miscellaneous Notes* Telephone Encounter - Husam Grant MA - 11/01/2023 9:24 AM EST Patient called in to get refills. Patient also stated that she is having leg and groin cramps for the past month. Patient stated that she is not taking her potassium pills like she should because they make her sick. Patient stated that she will start taking the potassium pills daily see if it helps. Patient is wondering if Dr Dhaliwal could send in a muscle relaxer incase the potassium pills don't help? Please advise Husam Grant MA * Telephone Encounter - Husam Grant MA - 11/01/2023 9:16 AM EST Patient called requesting the following refill Refill(s) Requested: Requested Prescriptions Pending Prescriptions Disp Refills omeprazole (PRILOSEC) 40 mg capsule 90 capsule 1 Sig: Take 1 capsule by mouth once daily. ALPRAZolam (XANAX) 1 mg tablet 60 tablet 0 Sig: Take 1 tablet by mouth every 12 hours as needed for up to 30 days. ALLERGIES Allergen Reactions Latex Anaphylaxis Abilify [Aripiprazo* Other: See Comments Muscles couldn't get up Codeine Diarrhea Compazine [Prochlor* Myalgia Levaquin [Levofloxa* Diarrhea Omnicef [Cefdinir] Diarrhea Prednisone GI Upset Propoxyphene Unknown Iqpkxbi-Dnw-Rvi Red* Diarrhea, Intolerance Sulfa (Sulfonamide * Other: See Comments Leg pain Shellfish Containin* Swelling (home) [phone] (cell) Last Office Visit Date: 07/24/2023 Last Distance Health Visit: Visit date not found Future Appointment: 01/17/2024 The patients preferred pharmacy has been captured for this encounter? yes Request is for script(s) to be escript to pharmacy. Husam Grant MA [facility]24 Miscellaneous Notes* Telephone Encounter - Rachel Markham MA - 10/25/2023 1:14 PM EST Patient called and stated that she has nausea and vomiting, Patient called requesting the following refill Refill(s) Requested: Requested Prescriptions Pending Prescriptions Disp Refills ondansetron (ZOFRAN) 8 mg tablet 30 tablet 1 Sig: Take 1 tablet by mouth every 8 hours as needed for nausea/vomiting. ALLERGIES Allergen Reactions Latex Anaphylaxis Abilify [Aripiprazo* Other: See Comments Muscles couldn't get up Codeine Diarrhea Compazine [Prochlor* Myalgia Levaquin [Levofloxa* Diarrhea Omnicef [Cefdinir] Diarrhea Prednisone GI Upset Propoxyphene Unknown Rzuiqoc-Vob-Etj Red* Diarrhea, Intolerance Sulfa (Sulfonamide * Other: See Comments Leg pain Shellfish Containin* Swelling (home) [phone] (cell) Last Office Visit Date: 07/24/2023 Last [facility] Visit: Visit date not found Future Appointment: Visit date not found The patients preferred pharmacy has been captured for this encounter? yes Request is for script(s) to be escript to pharmacy. Rachel Markham MA documented in this encounterReg[facility]23 Miscellaneous Notes* Telephone Encounter - Husam Grant MA - 08/07/2023 3:53 PM EST Called patient and informed that the working diagnosis is that she is having exacerbation of her COPD and has deconditioning due to being unable to exercise. This is why we tried the inhalers. If they are not working then we need to consider having her see the pulmonary physician and possibly even a double back operator. Her last echocardiogram in April of last year showed relatively good heart functioning but if she is continue to have chest pain we will send her to double back operator for further heart evaluation. Patient stated that she would like the referral to a test operator and double back operator. Could Dr Dhaliwal print out a referral to Tissue Technologist? Could Dr Dhaliwal print out referral to Energy Conservation Engineer? Please advise Husam Grant MA * Telephone Encounter - Kentrell Dhaliwal II, MD - 08/07/2023 3:34 PM EST The working diagnosis is that she is having exacerbation of her COPD and has deconditioning due to being unable to exercise. That is why we tried the inhalers. If they are not working then we need to consider having her see the pulmonary physician and possibly even a double back operator. Her last echocardiogram in April of last showed relatively good heart functioning but if she is continue to have chest pain we will send her to double back operator for further heart evaluation. * Telephone Encounter - Husam Grant MA - 08/07/2023 12:36 PM EST Called patient and informed that Dr Dhaliwal said there was no stronger dose of gas x, if she is nauseated she should take a Zofran and her chest x-ray was read as normal. Patient is wondering why she is SOB and chest hurts? Please advise Husam Grant MA * Telephone Encounter - Kentrell Dhaliwal II, MD - 08/06/2023 7:18 PM EST There is really no stronger dose of the simethicone If she is nauseated she should take a Zofran. Her chest x-ray was read as normal * Telephone Encounter - Patience Choi - 08/06/2023 11:03 AM EST Summary: CHEST XRAY PATIENT FORGOT TO ASK WHEN CALLING IN ABOUT HER CHEST XRAY THANK YOU Patience Choi * Telephone Encounter - Patience Choi - 08/03/2023 10:31 AM EST Summary: REFILL REQUEST / PATIENT QUESTION ASKING FOR XANAX TO BE REFILLED ASKING IF DR COULD POSSIBLY PRESCRIBE SOMETHING STRONGER THAN SIMETHICONE 250 MG PATIENT IS NOT FEELING MEDICATION IS GIVING HER RELIEF, FEELING NAUSEATED THANK YOU Patience Choi documented in this encounterRegency [facility]11-08-2023 Miscellaneous Notes* Telephone Encounter - Husam Grant MA - 07/25/2023 2:33 PM EST Called patient and informed of lab results. Informed patient that labs are in acceptable ranges andto recheck in 6 months or sooner if needed. Husam Grant MA * Telephone Encounter - Husam Grant MA - 07/25/2023 2:32 PM EST ----- Message from Kentrell Dhaliwal II, MD sent at 07/24/2023 10:55 PM EST ----- Labs are acceptable ranges. Recheck labs in 6 months or sooner if needed. documented in this encounterRegency Hospital [facility]11-07-2023 History of Present illness Narrative* Jillian Ram RT(R) - 07/24/2023 3:45 PM EST Radiology Service Progress Note PATIENT NAME: Kaitlyn Escobar DATE OF SERVICE: July 24, 2023 TIME: 3:39 PM PATIENT IDENTITY VERIFICATION COMPLETED USING TWO (2) IDENTIFIERS: Name and Date of confirmedby identification band. FALL SCREENING: Has the patient had 2 falls in the last year or 1 fall with injury or currently using an Ambulatory Assistive Device (Walker, Cane, Wheelchair, Crutches, etc.)? No PATIENT GENDER DATA: Female. status: : No status: N/A PATIENT RELEVANT IMPLANT DATA REVIEWED: Not Applicable RADIOLOGY DEPARTMENT: General X-ray: Exam(s) Completed: Chest X-Ray PERIPHERAL IV DATA: Not applicable SIGNED BY: RT Susie(R) July 24, 2023 3:39 PM documented in this encounterRegency Hospital [facility]11-07-2023 History of Present illness Narrative* Kentrell Dhaliwal II, MD - 07/24/2023 2:39 PM EST Images from the original note were not included. Kentrell Dhaliwal II, MD [address], [place] [address] SUBJECTIVE Kaitlyn Escobar is a 73 year old female who presents with F/U 3 Month and Short Of Breath. HPI Patient is in today to follow-up her chronic problems including her gastrointestinal issues. She states her stomach has been a little bit better but the last several weeks she has had shortness of breath when she is doing activities and feels like its more than what she has had in the past. She states that she can get short of breath walking down the hallway at home or going up a few stairs. She states she has had some wheezing. She has an occasional cough but she is not coughing anything up. Review of Systems Constitutional: Positive for fatigue. Negative for activity change, appetite change, chills, diaphoresis, fever and unexpected weight change. HENT: Positive for congestion. Negative for dental problem, drooling, ear discharge, ear pain, facial swelling, hearing loss, mouth sores, nosebleeds, postnasal drip, rhinorrhea, sinus pressure, sinus pain, sore throat, trouble swallowing and voice change. Eyes: Negative for discharge, redness and visual disturbance. Respiratory: Positive for cough, shortness of breath and wheezing. Negative for apnea, choking, chest tightness and stridor. Cardiovascular: Negative for chest pain, palpitations and leg swelling. Gastrointestinal: Positive for abdominal pain and nausea. Negative for abdominal distention, anal bleeding, blood in stool, constipation, diarrhea, rectal pain and vomiting. Endocrine: Negative for cold intolerance, heat intolerance, polydipsia, polyphagia and polyuria. Genitourinary: Negative for decreased urine volume, difficulty urinating, dysuria, enuresis, frequency, hematuria and urgency. Musculoskeletal: Negative for arthralgias, gait problem and myalgias. Skin: Negative for color change, pallor, rash and wound. Allergic/Immunologic: Negative for environmental allergies. Neurological: Negative for dizziness, tremors, syncope, facial asymmetry, speech difficulty, weakness, light-headedness, numbness and headaches. Hematological: Negative for adenopathy. Does not bruise/bleed easily. Psychiatric/Behavioral: Negative for agitation, behavioral problems, confusion, decreased concentration, dysphoric mood, hallucinations, self-injury, sleep disturbance and suicidal ideas. The patientis not nervous/anxious and is not hyperactive. PAST MEDICAL HISTORY Diagnosis Date Anxiety and depression Diabetes (HCC) Drug-induced Parkinson's disease (HCC) GERD (gastroesophageal reflux disease) History of DVT (deep vein thrombosis) IBS (irritable bowel syndrome) Seizures (HCC) Small bowel obstruction (HCC) Tremor PAST SURGICAL HISTORY Procedure Laterality Date CHOLECYSTECTOMY HX COLON SURGERY HX HYSTERECTOMY HX ROTATOR CUFF REPAIR Left TONSILLECTOMY HX WRIST SURGERY HX Right Social History Tobacco Use Smoking status: Never Smokeless tobacco: Never Vaping Use Vaping Use: Never used Substance Use Topics Alcohol use: Not Currently Drug use: Never FAMILY HISTORY Problem Relation Age of Onset Emphysema Mother Heart disease Father The ROS, medical, surgical, family, and social history were reviewed by Kentrell Dhaliwal II, MD ALLERGIES Allergen Reactions Latex Anaphylaxis Abilify [Aripiprazo* Other: See Comments Muscles couldn't get up Codeine Diarrhea Compazine [Prochlor* Myalgia Levaquin [Levofloxa* Diarrhea Omnicef [Cefdinir] Diarrhea Prednisone GI Upset Propoxyphene Unknown Stdwlhu-Abw-Kwz Red* Diarrhea, Intolerance Sulfa (Sulfonamide * Other: See Comments Leg pain Shellfish Containin* Swelling Current Outpatient Medications Medication Sig ALPRAZolam (XANAX) 1 mg tablet Take 1 tablet by mouth every 12 hours as needed for up to 30 days. dicyclomine (BENTYL) 20 mg tablet Take 1 tablet by mouth three times a day. ondansetron (ZOFRAN) 4 mg tablet Take 1 tablet by mouth every 6 hours as needed. traMADol (ULTRAM) 50 mg tablet Take 1 tablet by mouth every 6 hours as needed. buPROPion XL (WELLBUTRIN XL) 150 mg 24 hr tablet Take 2 tablets by mouth once daily. ezetimibe (ZETIA) 10 mg tablet Take 1 tablet by mouth once daily. omeprazole (PRILOSEC) 40 mg capsule Take 1 capsule by mouth once daily. clotrimazole-betamethasone (LOTRISONE) cream Apply to affected area twice daily. ondansetron orally disintegrating (ZOFRAN ODT) 4 mg disintegrating tablet Take 1 tablet by mouth every 8 hours as needed for nausea/vomiting. apixaban (ELIQUIS) 5 mg tab(s) Take 1 tablet by mouth twice daily. cyclobenzaprine (FLEXERIL) 10 mg tablet Take 1 tablet by mouth three times daily as needed. docusate sodium (COLACE) 100 mg capsule Take 1 capsule by mouth twice daily. SF 5000 PLUS 1.1 % dental cream xipkxxyfvp-mzljmnnm-zlmwfoljyi (BREZTRI AEROSPHERE) 160-9-4.8 mcg/actuation HFA aerosol inhaler Inhale 2 Puffs as instructed two times a day. albuterol HFA (PROVENTIL HFA, VENTOLIN HFA) 90 mcg/actuation inhaler Inhale 2 Puffs as instructed every 6 hours as needed for wheezing/shortness of breath. simethicone 250 mg cap Take 1 capsule by mouth three times a day. hyoscyamine SR (LEVBID) 0.375 mg 12 hr tablet Take 1 tablet by mouth two times a day. zolpidem (AMBIEN) 10 mg Take 1 tablet by mouth at bedtime as needed for up to 90 days. For Insomnia levothyroxine (SYNTHROID) 50 mcg tablet Take 1 tablet by mouth once daily. ondansetron (ZOFRAN) 8 mg tablet Take 1 tablet by mouth every 8 hours as needed for nausea/vomiting. No current facility-administered medications for this visit. OBJECTIVE BP 114/76 (BP Site: Left Arm, BP Position: Sitting) Pulse 80 Temp 36.4 C (97.5 F) Resp 16 Ht 154.9 cm (5' 1) Wt 54.4 kg (120 lb) SpO2 98% BMI 22.67 kg/m BMI 22.67 kg/(m^2) Physical Exam Vitals and nursing note reviewed. Constitutional: General: She is not in acute distress. Appearance: Normal appearance. She is not ill-appearing, toxic-appearing or diaphoretic. HENT: Head: Normocephalic and atraumatic. Right Ear: Tympanic membrane, ear canal and external ear normal. There is no impacted cerumen. Left Ear: Tympanic membrane, ear canal and external ear normal. There is no impacted cerumen. Nose: Nose normal. No congestion or rhinorrhea. Mouth/Throat: Mouth: Mucous membranes are moist. Pharynx: Oropharynx is clear. No oropharyngeal exudate or posterior oropharyngeal erythema. Eyes: General: No scleral icterus. Right eye: No discharge. Left eye: No discharge. Extraocular Movements: Extraocular movements intact. Conjunctiva/sclera: Conjunctivae normal. Pupils: Pupils are equal, round, and reactive to light. Neck: Vascular: No carotid bruit. Cardiovascular: Rate and Rhythm: Normal rate and regular rhythm. Pulses: Normal pulses. Heart sounds: Normal heart sounds. No murmur heard. No friction rub. No gallop. Pulmonary: Effort: Pulmonary effort is normal. No respiratory distress. Breath sounds: No stridor. No wheezing, rhonchi or rales. Comments: She has minimal rhonchi with occasional wheeze. There is no rales. There is no use of accessory muscles to breathe and no respiratory distress. Chest: Chest wall: No tenderness. Abdominal: General: Abdomen is flat. Bowel sounds are normal. There is no distension. Palpations: Abdomen is soft. There is no mass. Tenderness: There is no abdominal tenderness. There is no right CVA tenderness, left CVA tenderness, guarding or rebound. Hernia: No hernia is present. Musculoskeletal: General: No signs of injury. Cervical back: Normal range of motion and neck supple. No rigidity or tenderness. Comments: ROM and strength without significant changes from previous examinations and consistent with patient history Lymphadenopathy: Cervical: No cervical adenopathy. Skin: General: Skin is warm and dry. Capillary Refill: Capillary refill takes less than 2 seconds. Coloration: Skin is not jaundiced or pale. Findings: No erythema, lesion or rash. Neurological: General: No focal deficit present. Mental Status: She is alert and oriented to person, place, and time. Mental status is at baseline. Cranial Nerves: No cranial nerve deficit. Sensory: No sensory deficit. Motor: No weakness. Coordination: Coordination normal. Gait: Gait normal. Deep Tendon Reflexes: Reflexes normal. Psychiatric: Mood and Affect: Mood normal. Behavior: Behavior normal. Thought Content: Thought content normal. Judgment: Judgment normal. Labs: Hemoglobin (g/dL) Date Value 04/05/2023 9.7 11/23/2022 11.6 Hematocrit (%) Date Value 04/05/2023 26.8 11/23/2022 35.1 WBC Date Value 04/05/2023 8.55 k/uL 11/23/2022 7.8 x10(3) Platelet Count Date Value 04/05/2023 304 k/uL 11/23/2022 391 X10(3) Creatinine Date Value Ref Range Status 04/05/2023 0.97 (H) 0.58 - 0.96 mg/dL Final AST Date Value Ref Range Status 04/01/2023 327 (H) 13 - 35 U/L Final ALT Date Value Ref Range Status 04/01/2023 238 (H) 7 - 38 U/L Final Blood Culture (no units) Date Value 11/12/2021 XXX 11/12/2021 XXX Bilirubin, Total (mg/dL) Date Value 04/01/2023 0.8 Antibody Screen (no units) Date Value 04/01/2023 Negative WBC (k/uL) Date Value 04/05/2023 8.55 RBC (m/uL) Date Value 04/05/2023 3.13 (L) %DIG,%DBS Plan ASSESSMENT/PLAN: 1. Generalized weakness - ICD9: 780.79, ICD10: R53.1 (primary diagnosis) We will going to check a series of blood work values and obtain a chest x-ray. We will call her with results and recommendations when they are available. - CBC - BASIC METABOLIC PNL - TSH BLD - XR CHEST 2V FRONTAL/LAT 2. SOB (shortness of breath) - ICD9: 786.05, ICD10: R06.02 She does not appear to have acute bronchitis or pneumonia on exam but by history and physical most likely hyperactive airway disease. We will going to put her on daily and rescue metered-dose inhalers and check chest x-ray. She is going to call in 1 to 2 weeks with an update we will call her with the chest x-ray with further evaluation and treatment recommendations at that time - CBC - BASIC METABOLIC PNL - TSH BLD - XR CHEST 2V FRONTAL/LAT 3. CHAVARRIA (dyspnea on exertion) - ICD9: 786.09, ICD10: R06.09 As above - CBC - BASIC METABOLIC PNL - TSH BLD - XR CHEST 2V FRONTAL/LAT 4. Fatigue, unspecified type - ICD9: 780.79, ICD10: R53.83 Check labs and call with results recommendations when available. - CBC - BASIC METABOLIC PNL - TSH BLD - XR CHEST 2V FRONTAL/LAT 5. Chronic insomnia - ICD9: 780.52, ICD10: F51.04 Clinically stable. Continue same medication and treatment. Follow up in 3 to 6 months or sooner if needed. - ZOLPIDEM 10 MG TABLET - LEVOTHYROXINE 50 MCG TABLET 6. Anxiety and depression - ICD9: 300.00, 311, ICD10: F41.9, F32.A We will continue the same medications. She continues to have anxiety and depression symptoms but she states that she feels like these are getting better. 7. Generalized abdominal pain - ICD9: 789.07, ICD10: R10.84 Overall she states that she feels like her abdominal symptoms are better. We will continue the sametreatment for now and follow-up as needed. Kentrell Dhaliwal II, MD Follow up: No follow-ups on file. Kentrell Dhaliwal II, M.D. documented in this encounterRegency [facility]10-18-2023 Miscellaneous Notes* Telephone Encounter - Patience Choi - 07/04/2023 9:25 AM EDT Summary: REFILL REQUEST HAYDEE BENTYL TRAMADOL XANAX THANK YOU Patience Choi documented in this encounterRegency Hospital [facility]10-02-2023 Miscellaneous Notes* Telephone Encounter - Husam Grant MA - 06/18/2023 2:43 PM EDT Patient called requesting the following refill Refill(s) Requested: Requested Prescriptions Pending Prescriptions Disp Refills traMADol (ULTRAM) 50 mg tablet 28 tablet 0 Sig: Take 1 tablet by mouth every 6 hours as needed. ALLERGIES Allergen Reactions Latex Anaphylaxis Abilify [Aripiprazo* Other: See Comments Muscles couldn't get up Codeine Diarrhea Compazine [Prochlor* Myalgia Levaquin [Levofloxa* Diarrhea Omnicef [Cefdinir] Diarrhea Prednisone GI Upset Propoxyphene Unknown Lnfjjmp-Rgr-Hhv Red* Diarrhea, Intolerance Sulfa (Sulfonamide * Other: See Comments Leg pain Shellfish Containin* Swelling (home) [phone] (cell) Last Office Visit Date: 04/18/2023 Last [facility] Visit: Visit date not found Future Appointment: 07/24/2023 The patients preferred pharmacy has been captured for this encounter? yes Request is for script(s) to be escript to pharmacy. Husam Grant MA documented in this encounterRegency Hospital [facility]09-20-2023 Miscellaneous Notes* Telephone Encounter - Patience Choi - 06/06/2023 12:43 PM EDT Summary: REFILL REQUEST PATIENT IS REQUESTING REFILL FOR XANAX THANK YOU Patience Choi documented in this encounterRegency Hospital [facility]09-15-2023 Miscellaneous Notes* Telephone Encounter - Garima Drew MA - 06/01/2023 1:56 PM EDT Called patient to inform of Dr. Dhaliwal message. Patient states understanding and states that she is getting more weak, having difficulty walking to kitchen. States she is going to see how tonight goesand if no relief she may go to ER. Garima Drew MA * Telephone Encounter - Kentrell Dhaliwal II, MD - 06/01/2023 1:45 PM EDT The NG tube relieves pressure that causes the pain if she has a build up of gas or fluids if she has an ileus so sometimes it is needed Refill sent * Telephone Encounter - Garima Drew MA - 06/01/2023 10:33 AM EDT Patient called requesting refill and dose increase of Ultram due to abdominal pain. States she is taking Bentyl for the cramping and Zofran for nausea however, the pain has increased. Patient states she is not returning to the Hospital as she is tired of having NG tube and feels they do nothing for her. Please advise Garima Drew MA documented in this encounterRegency Hospital [facility]09-05-2023 Miscellaneous Notes* Telephone Encounter - Rosibel Segura MA - 05/22/2023 12:11 PM EDT Patient called requesting the following refill Refill(s) Requested: Requested Prescriptions Pending Prescriptions Disp Refills traMADol (ULTRAM) 50 mg tablet 28 tablet 0 Sig: Take 1 tablet by mouth every 6 hours as needed. ALLERGIES Allergen Reactions Latex Anaphylaxis Abilify [Aripiprazo* Other: See Comments Muscles couldn't get up Codeine Diarrhea Compazine [Prochlor* Myalgia Levaquin [Levofloxa* Diarrhea Omnicef [Cefdinir] Diarrhea Prednisone GI Upset Propoxyphene Unknown Ipkjvdw-Pbz-Nju Red* Diarrhea, Intolerance Sulfa (Sulfonamide * Other: See Comments Leg pain Shellfish Containin* Swelling (home) [phone] (cell) Last Office Visit Date: 04/18/2023 Last [facility] Health Visit: Visit date not found Future Appointment: 07/24/2023 The patients preferred pharmacy has been captured for this encounter? yes Request is for script(s) to be escript to pharmacy. Rosibel Segura MA documented in this encounterRegency Hospital [facility]09-04-2023 Miscellaneous Notes* Telephone Encounter - Kentrell Dhaliwal II, MD - 05/21/2023 7:32 PM EDT No Can't be mailed away and limited on number of pills and refills * Telephone Encounter - Patience Choi - 05/18/2023 11:57 AM EDT Summary: REFILL REQUEST PATIENT IS REQUESTING REFILL FOR TRAMADOL BE SENT TO [facility] MAIL DELIVERY THANK YOU Patience Choi documented in this encounterRegency Hospital [facility]08-18-2023 Miscellaneous Notes* Telephone Encounter - Husam Grant MA - 05/04/2023 1:53 PM EDT Pharmacy faxed requesting the following refill Refill(s) Requested: Requested Prescriptions Pending Prescriptions Disp Refills traMADol (ULTRAM) 50 mg tablet 28 tablet 0 Sig: Take 1 tablet by mouth every 6 hours as needed. ALLERGIES Allergen Reactions Latex Anaphylaxis Abilify [Aripiprazo* Other: See Comments Muscles couldn't get up Codeine Diarrhea Compazine [Prochlor* Myalgia Levaquin [Levofloxa* Diarrhea Omnicef [Cefdinir] Diarrhea Prednisone GI Upset Propoxyphene Unknown Fxlfles-Hmq-Fgj Red* Diarrhea, Intolerance Sulfa (Sulfonamide * Other: See Comments Leg pain Shellfish Containin* Swelling (home) [phone] (cell) Last Office Visit Date: 04/18/2023 Last [facility] Health Visit: Visit date not found Future Appointment: 07/24/2023 The patients preferred pharmacy has been captured for this encounter? yes Request is for script(s) to be escript to pharmacy. Husam Grant MA documented in this encounterRegency Hospital [facility]08-09-2023 Miscellaneous Notes* Telephone Encounter - Patience Choi - 04/25/2023 2:47 PM EDT Summary: REFILL REQUESTS PATIENT IS REQUESTING REFILLS FOR AMBIEN AND DICYCLOMINE THANK YOU Patience Choi * Telephone Encounter - Patience Choi - 04/23/2023 1:50 PM EDT Summary: PATIENT UPDATE PATIENT CALLED TO LET KNOW THAT SHE IS DOING MUCH BETTER Patience Choi documented in this encounterRegency Hospital [facility]08-02-2023 History of Present illness Narrative* Kentrell Dhaliwal II, MD - 04/18/2023 11:48 PM EDT Transitional Care Management TCM Eligibility Documentation The following information was gathered during the initial Patient Outreach Encounter. Date of Outreach: 04/06/2023 Outreach Attempt 1: Contact Made Date of Discharge 04/05/2023 Some recent data might be hidden Summary Discharged from: [facility] Admit Date: 04/01/23 Admitted for: Small bowel obstruction Kentrell Dhaliwal II, MD Provider Documentation Kaitlyn Escobar is a 72 year old female here today for a follow up to recent hospitalization. I have reviewed the patient's hospital course including diagnostic testing performed during this hospitalization, their discharge medications, and my assessment and plan with the patient and any family members present at today's visit. HPI: Patient is in today to follow-up inpatient admission for small bowel obstruction. She had been evaluated for abdominal pain and was noted to have a small bowel obstruction and be dehydrated and she was admitted for work-up and treatment. She was rehydrated and electrolytes were replaced and she had consultation with dietary and surgery and gastroenterology. She states that she is doing well sinceshe has been home and she is significantly better today at the time of exam. She states that the pain has essentially resolved and she is not having the constipation she was having before the admission either. She does state that she feels like she is getting a urinary tract infection as she is having some increased frequency and dysuria and she is also getting some irritation on the external labia that she has gone with urinary tract infections in the past. Review of Systems Constitutional: Negative for chills, diaphoresis, fever, malaise/fatigue and weight loss. HENT: Negative for congestion, ear discharge, ear pain, nosebleeds, sinus pain and sore throat. Eyes: Negative for blurred vision. Respiratory: Negative for cough, hemoptysis, sputum production, shortness of breath, wheezing and stridor. Cardiovascular: Negative for chest pain, palpitations, orthopnea, claudication, leg swelling and PND. Gastrointestinal: Negative for abdominal pain, blood in stool, constipation, diarrhea, heartburn, melena, nausea and vomiting. Genitourinary: Positive for dysuria and frequency. Negative for flank pain, hematuria and urgency. Musculoskeletal: Negative for falls, joint pain and myalgias. Skin: Negative for itching and rash. Neurological: Negative for dizziness and headaches. Endo/Heme/Allergies: Negative for polydipsia. Does not bruise/bleed easily. Psychiatric/Behavioral: Negative for depression, hallucinations, memory loss, substance abuse and suicidal ideas. The patient is not nervous/anxious and does not have insomnia. Vitals BP 128/88 Pulse 57 Temp 97 Resp 12 Ht 5' 1 (1.55m) Wt 119 lb 6.4 oz (54.2kg) SpO2 99% BMI 22.57 kg/(m^2). Physical Exam Vitals and nursing note reviewed. Constitutional: General: She is not in acute distress. Appearance: Normal appearance. She is normal weight. She is not ill-appearing, toxic-appearing or diaphoretic. HENT: Head: Normocephalic and atraumatic. Right Ear: Tympanic membrane, ear canal and external ear normal. Left Ear: Tympanic membrane, ear canal and external ear normal. Nose: Nose normal. Mouth/Throat: Mouth: Mucous membranes are moist. Pharynx: Oropharynx is clear. No oropharyngeal exudate or posterior oropharyngeal erythema. Eyes: General: Lids are normal. Vision grossly intact. No scleral icterus. Right eye: No discharge. Left eye: No discharge. Conjunctiva/sclera: Conjunctivae normal. Pupils: Pupils are equal, round, and reactive to light. Neck: Thyroid: No thyroid mass, thyromegaly or thyroid tenderness. Vascular: No carotid bruit or JVD. Trachea: No tracheal deviation. Cardiovascular: Rate and Rhythm: Normal rate and regular rhythm. Pulses: Normal pulses. Heart sounds: Normal heart sounds. No murmur heard. No friction rub. No gallop. Pulmonary: Effort: Pulmonary effort is normal. No tachypnea, accessory muscle usage, respiratory distress or retractions. Breath sounds: Normal breath sounds. No stridor. No wheezing, rhonchi or rales. Abdominal: General: Abdomen is flat. Bowel sounds are normal. There is no distension. Palpations: Abdomen is soft. There is no mass. Tenderness: There is no abdominal tenderness. There is no guarding or rebound. Musculoskeletal: General: No swelling, tenderness, deformity or signs of injury. Normal range of motion. Right shoulder: Normal. Left shoulder: Normal. Right upper arm: Normal. Left upper arm: Normal. Right elbow: Normal. Left elbow: Normal. Right forearm: Normal. Left forearm: Normal. Right wrist: Normal. Left wrist: Normal. Right hand: Normal. Left hand: Normal. Cervical back: Normal range of motion and neck supple. No rigidity or tenderness. Thoracic back: Normal. Lumbar back: Normal. Right lower leg: Normal. No edema. Left lower leg: Normal. No edema. Comments: Musculoskeletal range of motion and strength without readily apparent significant change from previous exams. Neurovascular grossly within normal limits for this patient. Lymphadenopathy: Cervical: No cervical adenopathy. Skin: General: Skin is warm and dry. Capillary Refill: Capillary refill takes less than 2 seconds. Coloration: Skin is not jaundiced. Findings: No erythema or rash. Neurological: General: No focal deficit present. Mental Status: She is alert and oriented to person, place, and time. Mental status is at baseline. Cranial Nerves: No cranial nerve deficit. Sensory: No sensory deficit. Motor: No weakness. Coordination: Coordination normal. Gait: Gait is intact. Gait normal. Psychiatric: Attention and Perception: Attention and perception normal. Mood and Affect: Mood and affect normal. Speech: Speech normal. Behavior: Behavior normal. Behavior is cooperative. Thought Content: Thought content normal. Cognition and Memory: Cognition and memory normal. Judgment: Judgment normal. ASSESSMENT/PLAN: 1. Small bowel obstruction (HCC) - ICD9: 560.9, ICD10: K56.609 (primary diagnosis) Patient reports significantly improved. She reports she feels like she is doing well and she is going to continue to follow-up with her gastrointestinal team as per their plan. She will call us as needed depending on her symptoms. - TRAMADOL 50 MG TABLET 2. Recurrent UTI (urinary tract infection) - ICD9: 599.0, ICD10: N39.0 recurrent - Begin treatment with Macrobid 100 mg BID for a tapering dose. - Patient education for prevention given 3. Dermatitis - ICD9: 692.9, ICD10: L30.9 - discussed skin care of rash - follow up if symptoms persist or worsen. 4. Gastroesophageal reflux disease, unspecified whether esophagitis present - ICD9: 530.81, ICD10: K21.9 Continue her current treatment and follow-up with care team as directed. 5. Hypothyroidism, acquired - ICD9: 244.9, ICD10: E03.9 - Instructed patient on importance of taking on an empty stomach either first thing in the morning or at bedtime. - check TSH in 3 months - continue current dose of Synthroid - Follow up in 4 months Weight decreasing - Continue current medications 6. Anxiety and depression - ICD9: 300.00, 311, ICD10: F41.9, F32.A Clinically stable. Continue same medication and treatment. Follow up in 3 to 6 months or sooner if needed. 7. Generalized weakness - ICD9: 780.79, ICD10: R53.1 Improving. Follow-up in 3 to 4 months or sooner if needed. Kentrell Dhaliwal II, MD [facility] Miscellaneous Notes* Telephone Encounter - Garima Drew MA - 04/11/2023 2:30 PM EDT Patient called requesting the following refill Refill(s) Requested: Requested Prescriptions Pending Prescriptions Disp Refills omeprazole (PRILOSEC) 40 mg capsule 90 capsule 1 Sig: Take 1 capsule by mouth once daily. ALPRAZolam (XANAX) 1 mg tablet 60 tablet 0 Sig: Take 1 tablet by mouth every 12 hours as needed for up to 30 days. ALLERGIES Allergen Reactions Latex Anaphylaxis Abilify [Aripiprazo* Other: See Comments Muscles couldn't get up Codeine Diarrhea Compazine [Prochlor* Myalgia Levaquin [Levofloxa* Diarrhea Omnicef [Cefdinir] Diarrhea Prednisone GI Upset Lspammp-Aog-Hmn Red* Diarrhea Sulfa (Sulfonamide * Other: See Comments Leg pain Shellfish Containin* Swelling (home) [phone] (cell) Last Office Visit Date: 11/23/2022 Last [facility] Visit: Visit date not found Future Appointment: 04/18/2023 The patients preferred pharmacy has been captured for this encounter? yes Request is for script(s) to be escript to pharmacy. Garima Drew MA refill documented in [facility]Reg[facility]23 Miscellaneous Notes* Telephone Encounter - Husam Grant MA - 04/10/2023 8:19 AM EDT Patient called requesting the following refill Refill(s) Requested: Requested Prescriptions Pending Prescriptions Disp Refills omeprazole (PRILOSEC) 40 mg capsule 90 capsule 1 Sig: Take 1 capsule by mouth once daily. ALPRAZolam (XANAX) 1 mg tablet 60 tablet 0 Sig: Take 1 tablet by mouth every 12 hours as needed for up to 30 days. ALLERGIES Allergen Reactions Latex Anaphylaxis Abilify [Aripiprazo* Other: See Comments Muscles couldn't get up Codeine Diarrhea Compazine [Prochlor* Myalgia Levaquin [Levofloxa* Diarrhea Omnicef [Cefdinir] Diarrhea Prednisone GI Upset Bbmztaz-Prn-Uvx Red* Diarrhea Sulfa (Sulfonamide * Other: See Comments Leg pain Shellfish Containin* Swelling (home) [phone] (cell) Last Office Visit Date: 11/23/2022 Last [facility] Health Visit: Visit date not found Future Appointment: 04/18/2023 The patients preferred pharmacy has been captured for this encounter? yes Request is for script(s) to be escript to pharmacy. Husam Grant MA documented in [facility] encounterReg[facility] History of Past illness Narrative* Problem Noted Date Diagnosed Date Resolved Date SBO (small bowel obstruction) 04/01/2023 04/05/2023 Small bowel obstruction 03/18/2023 07/0 12/2022 Parkinson's disease 06/22/2020 04/17/20 22 GERD without esophagitis 06/22/202009/2021 documented as of this encounter (statuses as of 04/11/2023) [facility] History of Past illness Narrative* Problem Noted Date Diagnosed Date Resolved Date SBO (small bowel obstruction) 04/01/2023 04/05/2023 Small bowel obstruction 03/18/2023 07/0 12/2022 Parkinson's disease 06/22/2020 04/17/20 22 GERD without esophagitis 06/22/202009/2021 documented as of this encounter (statuses as of 04/11/2023) [facility] History of Past illness Narrative* Problem Noted Date Diagnosed Date Resolved Date SBO (small bowel obstruction) 04/01/2023 04/05/2023 Small bowel obstruction 03/18/2023 07/0 12/2022 Parkinson's disease 06/22/2020 04/17/20 22 GERD without esophagitis 06/22/202009/2021 documented as of this encounter (statuses as of 04/19/2023) [facility] History of Past illness Narrative* Problem Noted Date Diagnosed Date Resolved Date SBO (small bowel obstruction) 04/01/2023 04/05/2023 Small bowel obstruction 03/18/2023 07/0 12/2022 Parkinson's disease 06/22/2020 04/17/20 22 GERD without esophagitis 06/22/202009/2021 documented as of this encounter (statuses as of 04/26/2023) [facility] History of Past illness Narrative* Problem Noted Date Diagnosed Date Resolved Date SBO (small bowel obstruction) 04/01/2023 04/05/2023 Small bowel obstruction 03/18/2023 07/0 12/2022 Parkinson's disease 06/22/2020 04/17/20 22 GERD without esophagitis 06/22/202009/2021 documented as of this encounter (statuses as of 05/05/2023) [facility] History of Past illness Narrative* Problem Noted Date Diagnosed Date Resolved Date SBO (small bowel obstruction) 04/01/2023 04/05/2023 Small bowel obstruction 03/18/2023 07/0 12/2022 Parkinson's disease 06/22/2020 04/17/20 22 GERD without esophagitis 06/22/202009/2021 documented as of this encounter (statuses as of 05/23/2023) [facility] History of Past illness Narrative* Problem Noted Date Diagnosed Date Resolved Date SBO (small bowel obstruction) 04/01/2023 04/05/2023 Small bowel obstruction 03/18/2023 07/0 12/2022 Parkinson's disease 06/22/2020 04/17/20 22 GERD without esophagitis 06/22/202009/2021 documented as of this encounter (statuses as of 06/01/2023) [facility] of Past illness Narrative* Problem Noted Date Diagnosed Date Resolved Date SBO (small bowel obstruction) 04/01/2023 04/05/2023 Small bowel obstruction 03/18/2023 07/0 12/2022 Parkinson's disease 06/22/2020 04/17/20 22 GERD without esophagitis 06/22/202009/2021 documented as of this encounter (statuses as of 06/07/2023) [facility] of Past illness Narrative* Problem Noted Date Diagnosed Date Resolved Date SBO (small bowel obstruction) 04/01/2023 04/05/2023 Small bowel obstruction 03/18/2023 07/0 12/2022 Parkinson's disease 06/22/2020 04/17/20 22 GERD without esophagitis 06/22/202009/2021 documented as of this encounter (statuses as of 06/07/2023) [facility] of Past illness Narrative* Problem Noted Date Diagnosed Date Resolved Date SBO (small bowel obstruction) 04/01/2023 04/05/2023 Small bowel obstruction 03/18/2023 07/0 12/2022 Parkinson's disease 06/22/2020 04/17/20 22 GERD without esophagitis 06/22/202009/2021 documented as of this encounter (statuses as of 06/21/2023) [facility] of Past illness Narrative* Problem Noted Date Diagnosed Date Resolved Date SBO (small bowel obstruction) 04/01/2023 04/05/2023 Small bowel obstruction 03/18/2023 07/0 12/2022 Parkinson's disease 06/22/2020 04/17/20 22 GERD without esophagitis 06/22/202009/2021 documented as of this encounter (statuses as of 07/06/2023) [facility] of Past illness Narrative* Problem Noted Date Diagnosed Date Resolved Date SBO (small bowel obstruction) 04/01/2023 04/05/2023 Small bowel obstruction 03/18/2023 07/0 12/2022 Parkinson's disease 06/22/2020 04/17/20 22 GERD without esophagitis 06/22/202009/2021 documented as of this encounter (statuses as of 07/11/2023) [facility] of Past illness Narrative* Problem Noted Date Diagnosed Date Resolved Date SBO (small bowel obstruction) 04/01/2023 04/05/2023 Small bowel obstruction 03/18/2023 07/0 12/2022 Parkinson's disease 06/22/2020 04/17/20 22 GERD without esophagitis 06/22/202009/2021 documented as of this encounter (statuses as of 07/25/2023) [facility] of Past illness Narrative* Problem Noted Date Diagnosed Date Resolved Date SBO (small bowel obstruction) 04/01/2023 04/05/2023 Small bowel obstruction 03/18/2023 07/0 12/2022 Parkinson's disease 06/22/2020 04/17/20 22 GERD without esophagitis 06/22/202009/2021 documented as of this encounter (statuses as of 07/26/2023) [facility] of Past illness Narrative* Problem Noted Date Diagnosed Date Resolved Date SBO (small bowel obstruction) 04/01/2023 04/05/2023 Small bowel obstruction 03/18/2023 07/0 12/2022 Parkinson's disease 06/22/2020 04/17/20 22 GERD without esophagitis 06/22/202009/2021 documented as of this encounter (statuses as of 08/06/2023) [facility] of Past illness Narrative* Problem Noted Date Diagnosed Date Resolved Date SBO (small bowel obstruction) 04/01/2023 04/05/2023 Small bowel obstruction 03/18/2023 07/0 12/2022 Parkinson's disease 06/22/2020 04/17/20 22 GERD without esophagitis 06/22/202009/2021 documented as of this encounter (statuses as of 08/24/2023) [facility] of Past illness Narrative* Problem Noted Date Diagnosed Date Resolved Date SBO (small bowel obstruction) 04/01/2023 04/05/2023 Small bowel obstruction 03/18/2023 07/0 12/2022 Parkinson's disease 06/22/2020 04/17/20 22 GERD without esophagitis 06/22/202009/2021 documented as of this encounter (statuses as of 10/25/2023) [facility] History of Past illness Narrative* Problem Noted Date Diagnosed Date Resolved Date SBO (small bowel obstruction) 04/01/2023 04/05/2023 Small bowel obstruction 03/18/2023 07/0 12/2022 Parkinson's disease 06/22/2020 04/17/20 22 GERD without esophagitis 06/22/202009/2021 documented as of this encounter (statuses as of 11/01/2023) [facility] History of Past illness Narrative* Problem Noted Date Diagnosed Date Resolved Date SBO (small bowel obstruction) 04/01/2023 04/05/2023 Small bowel obstruction 03/18/2023 07/0 12/2022 Parkinson's disease 06/22/2020 04/17/20 22 GERD without esophagitis 06/22/202009/2021 documented as of this encounter (statuses as of 12/07/2023) [facility] History of Past illness Narrative* Problem Noted Date Diagnosed Date Resolved Date SBO (small bowel obstruction) 04/01/2023 04/05/2023 Small bowel obstruction 03/18/2023 07/0 12/2022 Parkinson's disease 06/22/2020 04/17/20 22 GERD without esophagitis 06/22/202009/2021 documented as of this encounter (statuses as of 12/17/2023) [facility] Discharge summary Author Delmer Ghosh [facility] April 01, 2023 1:44pm Note Date/Time March 31, 2023 10:2 9pm [facility] Medical Records Department [address] [place] [address] Emergency Department Summary 03/31/23 MR#: [id number] Acct: [id number] Name: KAITLYN ESCOBAR Rep #:[id number] : 1950 72 From: Matt Harris PCP: Dr. Kentrell Dhaliwal MD Status:REG ER Location: ED ADDENDUM by Dr. Delmer Ghosh MD on 04/01/23 at 1344 Patient has been's excepted at [facility]. We are waiting for a bed. We recontacted them several times. We were told there would not be a bed available. It would be probably 1 or 2 days. I then called our surgeon on-callwho does know this patient. I was about to call medicine on-call to admit her. Then, [facility] called back and they now do have a bed. EMS is about 45 minutes out. We will continue with transfer then. She has required meds here. But on exam she looks comfortable in between this. She does not look like she is ischemic bowel. Evidently when she has obstruction she is significantly uncomfortable. Medicines do get her feeling significantly better. 04/01/23 1344<Electronically signed by Delmer Ghosh MD> Cosigner Signature (if applicable): cc: Dr. Kentrell Dhaliwal MD ~* Signed HPI History of Present Illness Chief Complaint: Abd Pain [facility] Medical History (Updated 04/01/23 @ 04:[address] Matt Dominguez, DO) Anxiety and depression Chronic anemia CKD (chronic kidney disease), stage III Depression DVT (deep venous thrombosis) GERD (gastroesophageal reflux disease) History of small bowel obstruction History of venous thromboembolism HLD (hyperlipidemia) Hyperthyroidism Hypothyroidism Irritable bowel Scarlet fever Home Medications alprazolam 1 mg tablet (Xanax) 1 mg PO BID 12/11/22 [History Last Taken Unknown] apixaban 5 mg tablet (Eliquis) 5 mg PO BID 12/11/22 [History Last Taken Unknown] bupropion HCl 150 mg 24 hr tablet, extended release 150 mg PO BID 12/11/22 [History Last Taken Unknown] esomeprazole magnesium 20 mg capsule,delayed release 20 mg PO DAILY 12/11/22 [History Last Taken Unknown] ezetimibe 10 mg tablet 10 mg PO DAILY 12/11/22 [History Last Taken Unknown] levothyroxine 50 mcg tablet 50 mcg PO DAILY 12/11/22 [History Last Taken Unknown] ondansetron HCl 4 mg tablet 4 mg PO Q6H PRN Nausea 12/11/22 [History Last Taken Unknown] zolpidem 10 mg tablet (Ambien) 10 mg PO QHS 12/11/22 [History Last Taken Unknown] dicyclomine 10 mg capsule mg 03/31/23 [History Last Taken Unknown] docusate sodium 100 mg capsule mg PO 03/31/23 [History Last Taken Unknown] Allergy/AdvReac Type Severity Reaction Status Date / Time cefdinir [From Omnicef] Allergy Hives Verified 03/31/23 22:24 codeine Allergy NEEDS Verified 03/31/23 22:24 FOLLOW-UP latex Allergy Anaphylaxis Verified 03/31/23 22:24 prochlorperazine Allergy NEEDS Verified 03/31/23 22:24 [From Compazine] FOLLOW-UP shellfish derived Allergy Anaphylaxis Verified 03/31/23 22:24 levofloxacin [From Levaquin] AdvReac Vomiting Verified 03/31/23 22:24 Dzqplmm-BVW-JtG Reductase AdvReac NEEDS Verified 03/31/23 22:24 Inhibitor FOLLOW-UP Family History (Updated 03/16/23 @ 06:[address] Jessica Thomas MD) Mother Heart disease COPD (chronic obstructive pulmonary disease) Father Heart disease Hypertension CAD (coronary artery disease) Myocardial infarction Surgical History History of appendectomy History of cholecystectomy History of colon surgery History of total abdominal hysterectomy Social History (Updated 03/16/23 @ 06:[address] Jessica Thomas MD) household members: none Smoking Status: Never smoker alcohol intake: never substance use type: does not use EXAM Physical Exam Const Vital Signs: 03/31/23 22:22 03/31/23 23:14 04/01/23 00:12 Temperature 96.6 F L Temperature Source Temporal Pulse Rate 121 H 83 79 Respiratory Rate 28 H 22 H 22 H Blood Pressure 131/114 H 125/88 H 151/86 H Blood Pressure Mean 119 100 107 Pulse Ox 100 98 100 Oxygen Delivery Method Room Air Room Air 04/01/23 01:27 04/01/23 02:07 04/01/23 03:00 Temperature Temperature Source Pulse Rate 80 77 72 Respiratory Rate 22 H 22 H 20 H Blood Pressure 166/71 H 154/81 H 161/88 H Blood Pressure Mean 102 105 112 Pulse Ox 100 96 100 Oxygen Delivery Method Room Air Room Air Room Air MDM MDM MDM Narrative Medical decision making narrative: HISTORY OF PRESENT ILLNESS: 72-year-old female here with abdominal pain. She states she is got severe abdominal pain. Intractable nausea vomiting. Decreased bowel movements. No fever. No chest pain or shortness of breath endorsed. REVIEW OF SYSTEMS: Pertinent positives: Abdominal pain, nausea vomiting Pertinent negatives: Hematemesis, melena or hematochezia PHYSICAL EXAM: Nursing triage notes reviewed, Vital signs reviewed Constitutional: please see mdm HENT: MMM Eyes: Pupils equal round and reactive to light, Extraocular muscles intact Neck: No stridor, no JVD, full neck ROM Lungs: Clear to auscultation, No wheezing or rales. No increased work of breathing, no conversational dyspnea, no accessory muscle use, no nasal flaring. No respiratory distress noted Heart: Regular rate and rhythm, No murmurs, No rubs and No gallops, 2+ distal pulses (radial, femoral, posterior tibial) in all extremities Abdomen: Soft, there is no tenderness, rigidity, rebound or guarding, no obviousperitoneal signs, no palpable pulsatile abdominal masses, no auscultated abdominal bruit : No CVAT Extremities: No edema Neuro: No focal neurological deficits, cranial nerves II through XII intact, 5/5strength in all extremities. Intact sensation to light touch in all extremities,2+ reflexes bilateral patella tendons. Normal gait. No ataxia. Skin: No rash or lesions noted MEDICAL DECISION MAKING: Chief Complaint: Abdominal pain External records reviewed: CT scan from 03/16/2023 shows Mild focally dilated small bowel in the left lower abdomen near the surgical anastomosis, similar but increased compared to prior May BE related to postsurgical change. Focal ileus, enteritis, or partial low-grade small bowel obstruction not entirely excluded. Biliary dilatation is stable compared to prior study postcholecystectomy. Per chart review Factors affecting care: History of small bowel obstruction, GERD, hypothyroidism Social determinants of health: Elderly History obtained from others: The patient's family member Consults: [facility] ALL IMAGES (IF OBTAINED) HAVE BEEN PERSONALLY REVIEWED AND INTERPRETED BY MYSELF. EKG with normal sinus rhythm, normal axis, prolonged QT, no obvious STEMI or atrial fibrillation Initial lactate elevated concerning for endorgan hypoperfusion CBC without leukocytosis, mild improving anemia, no thrombocytopenia Lipase is wnl indicating no pancreatic inflammation. BMP with LOLITA, mild hypokalemia LFTs show no evidence of hepatobiliary pathology. Urinalysis shows no evidence of urinary inflammation suggestive of UTI MDM Narrative: Patient was initially hypertensive, tachycardic and tachypneic was afebrile. I considered the following differential diagnosis: Perforation, small bowel obstruction, pancreatitis, hepatobiliary obstruction, dehydration, mesenteric ischemia I obtained a broad lab and imaging work-up to further elucidate the etiology patient complaints. Labs images remarkable for evidence of endorgan hypoperfusion with elevated lactate. There is no leukocytosis. No evidence of pancreatitis. No evidence of significant electrolyte abnormalities although there was mild hypokalemia. There is acute kidney injury suggestive of dehydration. Given the patient's elevated lactate I did give Zosyn. CT scan showed evidence of small bowel obstruction. Given patient was just admitted to outside hospital I did communicated with [facility] Dr. Salgado. Dr. Salgado excepted the patient's case for further evaluation and treatment. NGtube was placed. X-ray after NG tube showed acceptable position. The patient and/or family, caregivers express understanding. The patient and/orfamily, caregivers agrees with the plan. Total critical care time today provided was at least 0 minutes. This excludes separately billable procedures. Critical care time (if documented) is secondary to the patient having high probability of clinically significant/life threatening deterioration in the patient's condition which required my urgent intervention. Shared decision making: I will have a discussion with the patient and or visitors regarding risk/benefits of further testing or admission. They will be made aware of of the risk/benefits inherent in this decision they will be given the opportunity to voice understanding. Lab Data Attestation: I reviewed the patient's lab results. Labs: Laboratory Results - last 24 hr 03/31/23 04/01/23 22:54 02:25 WBC 10.4 RBC 3.95 L Hgb 11.2 L Hct 34.7 L MCV 87.8 MCH 28.4 MCHC 32.3 RDW Std Deviation 44.0 H RDW Coeff of [place] 13.7 Plt Count 464 H MPV 10.2 Immature Gran % (Auto) 1.100 H Neut % (Auto) 59.3 Lymph % (Auto) 31.9 Maverick % (Auto) 7.2 Eos % (Auto) 0.2 Baso % (Auto) 0.3 Absolute Neuts (auto) 6.2 Absolute Lymphs (auto) 3.32 Nucleated RBC % 0 Sodium 136 Potassium 3.4 L Chloride 103 Carbon Dioxide 20.0 L Anion Gap 13 BUN 9 Creatinine 1.31 H Estim Creat Clear Calc 29.72 Est GFR (MDRD) Af Amer 51 L Est GFR (MDRD) Non-Af 42 L BUN/Creatinine Ratio 6.9 L Glucose 124 H Lactic Acid 3.4 H* Calcium 9.3 Total Bilirubin 0.70 Direct Bilirubin 0.20 AST 19 ALT 24 Alkaline Phosphatase 128 H Total Protein 7.5 Albumin 3.6 Globulin 3.9 Lipase 21 Urine Color Yellow Urine Clarity Clear Urine pH 7.0 Ur Specific [place] 1.005 Urine Protein 15 H Urine Glucose (UA) Normal Urine Ketones 5 H Urine Occult Blood 10 H Urine Nitrite Negative Urine Bilirubin Negative Urine Urobilinogen Normal Ur Leukocyte Esterase 25 H Urine RBC 0 SEEN Urine WBC 0 SEEN Ur Squamous Epith Cells 0 SEEN Urine Bacteria 0 SEEN Urine Mucus 0 SEEN Radiography Diagnostic Testing: Clinical Impression(s) from Imaging Studies Abdomen/Pelvis CT 03/31/23 22:29 IMPRESSION: Persistent common duct distention status post cholecystectomy. Persistent possibly slightly worse focal distention of the small bowel in the left upper quadrant. Consider focal ileus possible waxing and waning partial obstruction associated with possible adhesion. Postoperative change within the left of midline small bowel also with distention relatively unchanged since prior study likely associated postoperative change. Again noted is close proximity to the interpretation of outside of the abdominal wall which also may represent adhesions. Status post cholecystectomy. Status post hysterectomy. Postoperative change within the distal small bowel. Electronically Signed: Susanne Fontaine MD at 0:17 EDT , KUB X-Ray 04/01/23 02:03 IMPRESSION: NG tube with the tip in the stomach. . Electronically Signed: Susanne Fontaine MD at 3:06 EDT , Chest x-ray read and reviewed by myself shows evidence of appropriate NG tube positioning. Discharge Plan Triage Chief Complaint: Abd Pain ED Provider: Matt Dominguez Dx/Rx/DC Orders Clinical Impression: Acute kidney injury, Acute lactic acidosis, SBO (small bowel obstruction) Prescriptions: No Action alprazolam [Xanax] 1 mg Tablet 1 mg PO BID Hold Instructions: Resume on 03/21/23. ondansetron HCl 4 mg Tablet 4 mg PO Q6H PRN (Reason: Nausea) levothyroxine 50 mcg Tablet 50 mcg PO DAILY zolpidem [Ambien] 10 mg Tablet 10 mg PO QHS Hold Instructions: Resume on 03/21/23. esomeprazole magnesium 20 mg capsule,delayed release(DR/EC) 20 mg PO DAILY ezetimibe 10 mg Tablet 10 mg PO DAILY bupropion HCl 150 mg tablet extended release 24 hr 150 mg PO BID Eliquis 5 mg Tablet 5 mg PO BID docusate sodium 100 mg capsule PO Patient Comments: TAKE 1 CAPSULE BY MOUTH TWICE DAILY dicyclomine 10 mg capsule Patient Comments: TAKE 2 CAPSULES 3 TIMESNDAILY BEFORE MEALS Primary Care Provider: Kentrell Dhaliwal Referrals: Kentrell Dhaliwal MD [Primary Care Provider] - Disposition Disposition: Acute Care Hospital Discharge Location: [facility] What to do if you have Problems For any increased pain, shortness of breath, bleeding, nausea or vomiting, chestpain, or any unexpected problems, contact your Primary Care Provider. Call [facility] ([phone]) or report to the closest Emergency Room. Call 911 if necessary. 04/01/23 0406 <Electronically signed by Matt Dominguez DO> Cosigner Signature (if applicable): CC: Dr. Kentrell Dhaliwal MD ~ Signed [facility] Work Phone: 1(245) 989-643307-06-2023 History of Present illness Narrative* Jessie Mccloud RN - 03/22/2023 1:52 PM EDT Initial Contact Transition Care Management (TCM) Initial contact with patient post discharge, spoke to patient. Patient identified by name and . SUMMARY: - Patient discharged from [facility] main on 03/20/23. - Follow up appointment on 04/05/23. - Medication review done? Yes - Admitted for: SBO - Consults: Yes- General surgery 1. I have reviewed the patient record including associated test results during the last hospitalization: Yes- ultrasound BLE- negative 2. I have reviewed Assessment/Plan with patient/family member: Yes CONCERNS: No appetite, pain NEW MEDICATIONS: tramadol CHANGED MEDICATIONS: None MEDS HELD/DISCONTINUED: None REFERRALS MADE: NONE Patient Education Discussed: Patient educated on medication regimen, keeping follow-up appointmentsand s/s to report to provider and when to seek emergent care. Reviewed discharge instructions and medication list reconciled and updated. Patient educated to maintain soft diet as listed in d/c instructions. Educated to eat smaller amounts more frequently. Patient has not taken dicyclomine since discharged and c/o pain from mid abdomen to left side after eating, Urinating well and bowels moving. Educated to take 3x/day while still having pain and then as needed once symptoms improve. Educated on dehydration s/s and prevention. F/u appointment scheduled during call. Jessie Mccloud RN * Jessie Mccloud RN - 03/22/2023 10:50 AM EDT 2nd attempt to contact patient for an update. Left message with sister Linda for patient to return call. Jessie Mccloud RN 03/22/2023 10:50 AM * Jessie Mccloud RN - 03/22/2023 9:49 AM EDT 1st attempt to contact patient for an update. Left message for patient. Jessie Mccloud RN 03/22/2023 9:56 AM [facility] History of Past illness Narrative* Problem Noted Date Resolved Date Malnutrition of mild degree 03/19/2023 0712/2022 Small bowel obstruction 03/18/2023 03/20/20 23 Parkinson's disease 06/22/2020 04/17/2022 GERD without esophagitis 06/22/2020 022 documented as of this encounter (statuses as of 03/22/2023) [place] [address]-02-2023 Progress note Author Ivon Oliver [facility] March 18, 2023 2:57pm Note Date/Time March 18, 2023 2:57p [facility] Medical Records Department [address] [place] [address] Progress Note - Hospitalist 03/18/23 1455 MR#: [id number] Acct: [id number] Name: KAITLYN ESCOBAR Rep #:[id number] : 1950 72 From: Ivon Oliver MD PCP: Dr. Kentrell Dhaliwal MD Status:ADM IN Location: [place] [address] Reason for Visit Reason for Visit: Diagnoses Partial intestinal obstruction, unspecified as to cause (03/16/23) Constipation, unspecified (03/16/23) Subjective Subjective Patient had initially been feeling better this morning and was tolerating clear liquids however right after abdominal exam had multiple episodes of nausea and active vomiting. Objective Data Objective Data Vital Signs: Vital Signs Temp Pulse Resp BP Pulse Ox O2 Del Method 97.7 F L 71 16 143/76 H 99 Room Air 03/18/23 07:58 03/18/23 07:58 03/18/23 07:58 03/18/23 07:58 03/18/23 07:58 03/18/23 08:00 Oxygen Delivery Method Room Air Weight: 54.2 kg Body Mass Index (BMI) 22.5 Intake & Output: Intake and Output for Last 24 Hours 03/16/23 03/17/23 03/18/23 23:59 23:59 23:59 Intake Total 2358.33 / 2358.33 2263.33 / 2263.33 1110 / 1110 Output Total 450 / 450 450 / 450 Balance 1908.33 / 1908.33 1813.33 / 1813.33 1110 / 1110 Medical Nutrition Assessment Dietitian: Malnutrition Criteria Met Start: 03/16/23 15:24 Freq: Status: Active Protocol: Document 03/16/23 15:24 SHANNON (Rec: 03/16/23 15:24 SHANNON [id number]) Nutrition Malnutrition Evidence of Malnutrition Exists Yes Malnutrition (severe): Chronic Evidenced By Suboptimal Energy Intake ( Severe),Weight Loss (Severe) Intake Problem Inadequate Oral Intake Etiology related to GI dysfunction and NG in place for suction Signs/Symptoms as evidenced by NPO status Status Active Problem Clinical Problem Chronic Disease or Condition Related Malnutrition Etiology related to inadequate energy intake Signs/Symptoms as evidenced by <50% po intake x 1 year and unintended wt loss of 10.4% x 3 mo and 16.7% unintended wt loss x 1 year. Status Active Problem Recommendation Dietitian Recommendations/Changes Rec JAHAIRA to Transitional as medically able w/ goal of liberal regular d/t signs and symptoms of malnutrition Rec ensure milkshake w/ L&D as medically able for increased nutrition if consumed Res parenteral nutrition support if NPO expected > 3 days Lab / Micro Data 03/18/23 05:21 03/18/23 05:21 Labs: Laboratory Results - last 24 hr 03/18/23 05:21: WBC 7.5, RBC 3.15 L, Hgb 9.1 L, Hct 29.0 L, MCV 92.1, MCH 28.9, MCHC 31.4 L, RDW Std Deviation 48.2 H, RDW Coeff of Neno 14.3, Plt Count 281, MPV11.0, Immature Gran % (Auto) 0.400, Neut % (Auto) 59.2, Lymph % (Auto) 29.6, Maverick % (Auto) 8.2, Eos % (Auto) 1.9, Baso % (Auto) 0.7, Absolute Neuts (auto) 4.4, Absolute Lymphs (auto) 2.21, Nucleated RBC % 0, Sodium 138, Potassium 3.6, Chloride 111 H, Carbon Dioxide 21.0, Anion Gap 6, BUN 7, Creatinine 0.88, Estim Creat Clear Calc 44.25, Est GFR (MDRD) Af Amer 82, Est GFR (MDRD) Non-Af 68, BUN/Creatinine Ratio 8.0 L, Glucose 84, Calcium 8.4 L, Total Bilirubin 1.00, AST81 H, ALT 101 H, Alkaline Phosphatase 158 H, Total Protein 6.1 L, Albumin 2.7 L,Globulin 3.4, Albumin/Globulin Ratio 0.8 L Radiography Diagnostic Testing: Radiology Impression KUB X-Ray 03/17/23 05:15 IMPRESSION: No bowel obstruction. Contrast throughout the colon progressed compared to earlier. Electronically Signed: Jessie Brasher MD at 2:55 EDT , Physical Exam Narrative General: Alert, oriented, initially was in no apparent distress but after abdominal exam patient began acutely vomiting HEENT: Atraumatic, normocephalic Eyes: Anicteric, normal conjunctiva, extraocular movements grossly intact Neck: Supple Respiratory: Clear to auscultation bilaterally, normal respiratory effort Cardiovascular: Regular rate and rhythm GI: Soft, nondistended, initially had some slight tenderness but no rebound, guarding, rigidity however as soon as abdominal exam was over patient felt extremely nauseous and vomited multiple times Extremities: No edema Musculoskeletal: Moving all extremities Neuro: No overt focal neurological deficits Skin: No rashes appreciated Psych: Tearful and anxious Assessment & Plan Assessment/Plan (1) Partial small bowel obstruction: PLAN: Plan #Partial small bowel obstruction with nausea and abdominal pain -CT abdomen pelvis on admission with mildly focally dilated small bowel in the left lower abdomen near the surgical anastomosis similar but increased compared to prior possibly related to postsurgical change however focal ileus, enteritis or partial low-grade small bowel obstruction cannot be entirely excluded, biliary dilatation is stable compared to prior study postcholecystectomy -Patient had been admitted and had NG tube to suction and IV fluid with pain control and nausea control -Was feeling much better in the a.m. and had NG tube out and was thus far tolerating clears with no abdominal pain and KUB appeared to be improving -Patient was okay for DC home later in the day if tolerating diet- -given patient having episode of vomiting with increased nausea patient made n.p.o. again, no intractable abdominal pain and nausea was improving patient adamant that she does not want NG tube if at all possible so we will hold off onNG tube at this time. Discussed plan with surgery. If patient were to develop any problems requiring surgery she would need to be transferred -Did have slight bump in liver enzymes overnight with unclear significance as this did not wear her pain and symptoms, will trend daily CMP -03/18: Patient with recurrent nausea and vomiting. Has been having small stools and intermittently tolerating diet however given multiple back slides and extensive abdominal history it was discussed with Dr. Edwards it was recommended she be transferred to tertiary facility. She has been accepted at [facility] by Dr. Almanza and is awaiting bed #Anxiety and depression: -will have as needed low-dose Ativan for anxiety and hold her Xanax regimen. 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 #7. DVT prophylaxis: Eliquis Time spent in the patient's overall evaluation,decision-making process, review of diagnostic data, adjustment of management, discussion with other providers, nursing nursing and ancillary staff involved in patient's care documentation, 40minutes Charges/Coding Visit Charges Inpatient E&M: 43490 [facility] L3 03/18/23 1457 <Electronically signed by Ivon Oliver MD> Cosigner Signature (if applicable): CC: ~ Signed [facility] Work Phone: 1(614) 381-229807-02-2023 Progress note Author Marvin Edwards [facility] March 18, 2023 8:02am Note Date/Time March 18, 2023 8:02a m [facility] Medical Records Department [address] [place] [address] Progress Note - Surgery 03/18/23 0801 MR#: [id number] Acct: [id number] Name: KAITLYN ESCOBAR Rep #:[id number] : 1950 72 From: Marvin mathew MD PCP: Dr. Kentrell Dhaliwal MD Status:ADM IN [id number] Subjective Subjective Patient told me she was feeling better this morning but she told the nurse that she was still nauseous and received Zofran this morning. Objective Data Objective Data Vital Signs: Vital Signs Temp Pulse Resp BP Pulse Ox O2 Del Method 97.7 F L 71 16 143/76 H 99 Room Air 03/18/23 07:58 03/18/23 07:58 03/18/23 07:58 03/18/23 07:58 03/18/23 07:58 03/18/23 07:58 Oxygen Delivery Method Room Air Weight: 119 lb 7.849 oz Body Mass Index (BMI) 22.5 Intake & Output: Intake and Output for Last 24 Hours 03/16/23 03/17/23 03/18/23 23:59 23:59 23:59 Intake Total 2358.33 / 2358.33 2263.33 / 2263.33 110 / 110 Output Total 450 / 450 450 / 450 Balance 1908.33 / 1908.33 1813.33 / 1813.33 110 / 110 Medical Nutrition Assessment Dietitian: Malnutrition Criteria Met Start: 03/16/23 15:24 Freq: Status: Active Protocol: Document 03/16/23 15:24 SLA (Rec: 03/16/23 15:24 SLA [id number]) Nutrition Malnutrition Evidence of Malnutrition Exists Yes Malnutrition (severe): Chronic Evidenced By Suboptimal Energy Intake ( Severe),Weight Loss (Severe) Intake Problem Inadequate Oral Intake Etiology related to GI dysfunction and NG in place for suction Signs/Symptoms as evidenced by NPO status Status Active Problem Clinical Problem Chronic Disease or Condition Related Malnutrition Etiology related to inadequate energy intake Signs/Symptoms as evidenced by <50% po intake x 1 year and unintended wt loss of 10.4% x 3 mo and 16.7% unintended wt loss x 1 year. Status Active Problem Recommendation Dietitian Recommendations/Changes Rec JAHAIRA to Transitional as medically able w/ goal of liberal regular d/t signs and symptoms of malnutrition Rec ensure milkshake w/ L&D as medically able for increased nutrition if consumed Res parenteral nutrition support if NPO expected > 3 days Lab / Micro Data 03/18/23 05:21 03/18/23 05:21 Labs: Laboratory Results - last 24 hr 03/17/23 07:22: Sodium 140, Potassium 4.1, Chloride 112 H, Carbon Dioxide 21.0, Anion Gap 7, BUN 11, Creatinine 0.99, Estim Creat Clear Calc 39.33, Est GFR (MDRD) Af Amer 71, Est GFR (MDRD) Non-Af 59 L, BUN/Creatinine Ratio 11.1, Glucose 88, Calcium 8.4 L, Total Bilirubin 1.00, AST 198 H, ALT 130 H, Alkaline Phosphatase 179 H, Total Protein 6.4, Albumin 3.0 L, Globulin 3.4, Albumin/Globulin Ratio 0.9 03/18/23 05:21: WBC 7.5, RBC 3.15 L, Hgb 9.1 L, Hct 29.0 L, MCV 92.1, MCH 28.9, MCHC 31.4 L, RDW Std Deviation 48.2 H, RDW Coeff of Neno 14.3, Plt Count 281, MPV11.0, Immature Gran % (Auto) 0.400, Neut % (Auto) 59.2, Lymph % (Auto) 29.6, Maverick % (Auto) 8.2, Eos % (Auto) 1.9, Baso % (Auto) 0.7, Absolute Neuts (auto) 4.4, Absolute Lymphs (auto) 2.21, Nucleated RBC % 0, Sodium 138, Potassium 3.6, Chloride 111 H, Carbon Dioxide 21.0, Anion Gap 6, BUN 7, Creatinine 0.88, Estim Creat Clear Calc 44.25, Est GFR (MDRD) Af Amer 82, Est GFR (MDRD) Non-Af 68, BUN/Creatinine Ratio 8.0 L, Glucose 84, Calcium 8.4 L, Total Bilirubin 1.00, AST81 H, ALT 101 H, Alkaline Phosphatase 158 H, Total Protein 6.1 L, Albumin 2.7 L,Globulin 3.4, Albumin/Globulin Ratio 0.8 L Radiography Diagnostic Testing: Radiology Impression KUB X-Ray 03/17/23 05:15 IMPRESSION: No bowel obstruction. Contrast throughout the colon progressed compared to earlier. Electronically Signed: Jessie Brasher MD at 2:55 EDT , Physical Exam Const oriented x3 Resp normal respiratory effort GI soft to palpation Inspection: Negative for abdominal distention Assessment & Plan Assessment/Plan (1) Partial small bowel obstruction: PLAN: Patient x-ray from yesterday showed that the contrast moved into the colon. She did have bowel movement. She was not able to tolerate clears yesterday and had nausea. It was uncertain if this was due to anxiety as well. I would like her to try clears again today. If she does not tolerate that she would need to be transferred to tertiary center as she already has short gut andknown dense adhesions and she has had 7 abdominal surgeries. Marvin Edwards MD Pager: [facility] [address], [address] [place] [address] Office: 03/18/23 08 <Electronically signed by Marvin Edwards MD> Cosigner Signature (if applicable): CC: ~ Signed [facility] Work Phone: 1(648) 410-247107-01-2023 Progress note Author Ivon Oliver [facility] March 17, 2023 1:10pm Note Date/Time March 17, 2023 12:52 pm [facility] Medical Records Department [address] [place] [address] Progress Note - Hospitalist 03/17/23 1252 MR#: [id number] Acct: [id number] Name: KAITLYN ESCOBAR Rep #:[id number] : 1950 72 From: Ivon Oliver MD PCP: Dr. Kentrell Dhaliwal MD Status:ADM IN [id number] Reason for Visit Reason for Visit: Diagnoses Partial intestinal obstruction, unspecified as to cause (03/16/23) Constipation, unspecified (03/16/23) Subjective Subjective This a.m. patient feeling well and was having no more significant abdominal painor nausea, not was tolerating clear liquids on my evaluation. Plan was for DC home after lunch however towards the afternoon patient did develop nausea and anepisode of vomiting x1. Reports after that nausea was improving but is still present. Says she has some abdominal pain but not nearly as bad as it was yesterday. Patient also reports being anxious and she is tearful. Did report she was still able to pass gas around the same time that she vomited Objective Data Objective Data Vital Signs: Vital Signs Temp Pulse Resp BP Pulse Ox O2 Del Method 98.1 F 75 16 158/61 H 100 Room Air 03/17/23 09:09 03/17/23 09:09 03/17/23 09:09 03/17/23 09:09 03/17/23 09:09 03/17/23 09:12 Oxygen Delivery Method Room Air Weight: 54.4 kg Body Mass Index (BMI) 22.6 Intake & Output: Intake and Output for Last 24 Hours 06/29/23 06/30/23 07/01/23 23:59 23:59 23:59 Intake Total 2358.33 / 2358.33 980 / 980 Output Total 450 / 450 150 / 150 Balance 1908.33 / 1908.33 830 / 830 Medical Nutrition Assessment Dietitian: Malnutrition Criteria Met Start: 03/16/23 15:24 Freq: Status: Active Protocol: Document 03/16/23 15:24 SLA (Rec: 03/16/23 15:24 SLA [id number]) Nutrition Malnutrition Evidence of Malnutrition Exists Yes Malnutrition (severe): Chronic Evidenced By Suboptimal Energy Intake ( Severe),Weight Loss (Severe) Intake Problem Inadequate Oral Intake Etiology related to GI dysfunction and NG in place for suction Signs/Symptoms as evidenced by NPO status Status Active Problem Clinical Problem Chronic Disease or Condition Related Malnutrition Etiology related to inadequate energy intake Signs/Symptoms as evidenced by <50% po intake x 1 year and unintended wt loss of 10.4% x 3 mo and 16.7% unintended wt loss x 1 year. Status Active Problem Recommendation Dietitian Recommendations/Changes Rec JAHAIRA to Transitional as medically able w/ goal of liberal regular d/t signs and symptoms of malnutrition Rec ensure milkshake w/ L&D as medically able for increased nutrition if consumed Res parenteral nutrition support if NPO expected > 3 days Lab / Micro Data 03/17/23 07:22 03/17/23 07:22 Labs: Laboratory Results - last 24 hr 03/17/23 07:22: WBC 11.7 H, RBC 3.46 L, Hgb 10.2 L, Hct 31.7 L, MCV 91.6, MCH 29.5, MCHC 32.2, RDW Std Deviation 49.5 H, RDW Coeff of Neno 14.7 H, Plt Count 293, MPV 10.4, Immature Gran % (Auto) 0.400, Neut % (Auto) 78.2 H, Lymph % (Auto) 13.4 L, Maverick % (Auto) 6.5, Eos % (Auto) 1.2, Baso % (Auto) 0.3, Absolute Neuts (auto) 9.2 H, Absolute Lymphs (auto) 1.57, Nucleated RBC % 0, Sodium 140, Potassium 4.1, Chloride 112 H, Carbon Dioxide 21.0, Anion Gap 7, BUN 11, Creatinine 0.99, Estim Creat Clear Calc 39.33, Est GFR (MDRD) Af Amer 71, Est GFR (MDRD) Non-Af 59 L, BUN/Creatinine Ratio 11.1, Glucose 88, Calcium 8.4 L, Total Bilirubin 1.00, AST 198 H, ALT 130 H, Alkaline Phosphatase 179 H, Total Protein 6.4, Albumin 3.0 L, Globulin 3.4, Albumin/Globulin Ratio 0.9 Radiography Diagnostic Testing: Radiology Impression Small Bowel X-Ray 03/16/23 08:50 IMPRESSION: 1. Successful Gastrografin challenge. No bowel obstruction. Documentation of contrast in the colon at 6 hours. Electronically Signed: Braxton (Brooks) Guille, at 16:19 EDT Reading Location ID and State: / [place] , Service support , Physical Exam Narrative General: Alert, oriented, initially was in no apparent distress but on reevaluation appeared anxious HEENT: Atraumatic, normocephalic Eyes: Anicteric, normal conjunctiva, extraocular movements grossly intact Neck: Supple Respiratory: Clear to auscultation bilaterally, normal respiratory effort Cardiovascular: Regular rate and rhythm GI: Soft, nondistended, initial exam no tenderness, repeat exam had some voluntary guarding but when auscultating with stethoscope did not appear to haveany significant tenderness and no rebound, guarding, rigidity Extremities: No edema Musculoskeletal: Moving all extremities Neuro: No overt focal neurological deficits Skin: No rashes appreciated Psych: Tearful and anxious Assessment & Plan Assessment/Plan (1) Partial small bowel obstruction: PLAN: Plan #Partial small bowel obstruction with nausea and abdominal pain -CT abdomen pelvis on admission with mildly focally dilated small bowel in the left lower abdomen near the surgical anastomosis similar but increased compared to prior possibly related to postsurgical change however focal ileus, enteritis or partial low-grade small bowel obstruction cannot be entirely excluded, biliary dilatation is stable compared to prior study postcholecystectomy -Patient had been admitted and had NG tube to suction and IV fluid with pain control and nausea control -Was feeling much better in the a.m. and had NG tube out and was thus far tolerating clears with no abdominal pain and KUB appeared to be improving -Patient was okay for DC home later in the day if tolerating diet- -given patient having episode of vomiting with increased nausea patient made n.p.o. again, no intractable abdominal pain and nausea was improving patient adamant that she does not want NG tube if at all possible so we will hold off onNG tube at this time. Discussed plan with surgery. If patient were to develop any problems requiring surgery she would need to be transferred -Did have slight bump in liver enzymes overnight with unclear significance as this did not wear her pain and symptoms, will trend daily CMP #Anxiety and depression: -will have as needed low-dose Ativan for anxiety and hold her Xanax regimen. 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 #7. DVT prophylaxis: Eliquis Time spent in the patient's overall evaluation,decision-making process, review of diagnostic data, adjustment of management, discussion with other providers, nursing nursing and ancillary staff involved in patient's care documentation, 40minutes Charges/Coding Visit Charges Inpatient E&M: 51877 Subs Hosp 03/17/23 1310 <Electronically signed by Ivon Oliver MD> Cosigner Signature (if applicable): CC: ~ Signed [facility] Work Phone: 1(466) 163-473407-01-2023 Discharge summary Author Ivon Oliver [facility] March 17, 2023 11:29am Note Date/Time March 17, 2023 11:28 am [facility] Medical Records Department [address] [place] [address] Instructions for Home/Discharge Instructions 03/17/23 1127 MR#: [id number] Acct: [id number] Name: KAITLYN ESCOBAR Rep #:[id number] : 1950 72 From: Ivon Oliver MD PCP: Dr. Kentrell Dhaliwal MD Status:ADM IN Discharge Instructions Diet Discharge Diet: Light diet - advance as tolerated Activity Discharge Activity: Return to Normal Activity Follow Up Care Test Results: Test results from this visit will be discussed in further detail at your follow- up appointment, if applicable. Discharge Plan Admission Admit Date/Time: 03/16/23 06:30 Primary Reason for Your Visit: Partial bowel obstruction Attending Provider: Ivon Oliver Primary Care Provider: Kentrell Dhaliwal Consulting Providers: Jessica Thomas; Paulo Umanzor; Aly Fragoso Instructions Patient Instructions: Obstruction Intestinal Additional Instructions / Restrictions: DISCHARGE INSTRUCTIONS PLEASE READ *Please take this with you to your next doctors appointment* -Please resume your home medications -Follow up with Dr. Umanzor with general surgery as needed -Would recommend lab work (CMP) to check your liver function in 2 to 3 days through your primary care physician's office. Please call their office upon discharge to obtain order for lab work. -Please call your primary care provider's office upon discharge to schedule a hospital follow up within 1 week. -For any concerning signs or symptoms please call 911 or proceed to the nearest emergency department Discharge Orders/Prescriptions Prescriptions: Continued alprazolam [Xanax] 1 mg Tablet 1 mg PO BID ondansetron HCl 4 mg Tablet 4 mg PO Q6H PRN (Reason: Nausea) levothyroxine 50 mcg Tablet 50 mcg PO DAILY docusate sodium 100 mg capsule 100 mg PO BID Patient Comments: TAKE 1 CAPSULE BY MOUTH TWICE DAILY zolpidem [Ambien] 10 mg Tablet 10 mg PO QHS esomeprazole magnesium 20 mg capsule,delayed release(DR/EC) 20 mg PO DAILY ezetimibe 10 mg Tablet 10 mg PO DAILY bupropion HCl 150 mg tablet extended release 24 hr 150 mg PO BID Eliquis 5 mg Tablet 5 mg PO BID dicyclomine 10 mg capsule 20 mg PO TIDAC Qty: 20 0RF Referrals / Follow Up: Paulo Umanzor MD [Med Staff - Active Staff] - (Follow-up with surgery as needed) Kentrell Dhaliwal MD [Primary Care Provider] - Within 1 Week Care Physician,No Primary [Non-Staff] - Disposition Disposition (needs filled in before D/C Order can be placed): Home, Self Care 03/17/23 1129<Electronically signed by Ivon Oliver MD>Ivon Oliver MD CC: Dr. Jessica Thomas MD; Dr. Paulo Umanzor MD; Dr. Aly Fragoso MD;Dr. Kentrell Dhaliwal MD ~ Signed [facility] Work Phone: [phone]) 194-543507-01-2023 Discharge summary Author Ivon Oliver [facility] March 18, 2023 4:24pm Note Date/Time March 17, 2023 11:29 am [facility] Medical Records Department [address] [place] [address] Discharge Summary 03/17/23 1129 MR#: [id number] Acct: [id number] Name: KAITLYN ESCOBAR Rep #:[id number] : 1950 72 From: Ivon Oliver MD PCP: Dr. Kentrell Dhaliwal MD Status:ADM IN Location: [facility] [id number] Providers Date of Admission: 03/16/23 Date of Discharge: 03/18/23 Primary Care Physician: Dr. Kentrell Dhaliwal MD Consultations 03/16/23 07:37 Consult: General Surgery Routine Consulting Provider: Paulo Umanzor Reason for Consult: pSBO EMERGENT Consult: No MD Notified: Yes Date Notified: 03/16/23 Time Notified: 06:32 Method of Notification: ED Physician Initiated Reason For Visit: PARTIAL SBO Diagnosis Discharge Diagnosis (1) Partial small bowel obstruction: Status: Acute Code(s): K56.600 - Partial intestinal obstruction, unspecified as to cause Plan #recurrent n/v #Parital ABO #anx/depression #hypothyroidism #hx vte Medications at Discharge Home Medications alprazolam 1 mg tablet (Xanax) 1 mg PO BID 12/11/22 apixaban 5 mg tablet (Eliquis) 5 mg PO BID 12/11/22 bupropion HCl 150 mg 24 hr tablet, extended release 150 mg PO BID 12/11/22 esomeprazole magnesium 20 mg capsule,delayed release 20 mg PO DAILY 12/11/22 ezetimibe 10 mg tablet 10 mg PO DAILY 12/11/22 levothyroxine 50 mcg tablet 50 mcg PO DAILY 12/11/22 ondansetron HCl 4 mg tablet 4 mg PO Q6H PRN Nausea 12/11/22 zolpidem 10 mg tablet (Ambien) 10 mg PO QHS 12/11/22 Hospital Course Summary of Care Provided Minutes Spent on Discharge: 46 Hospital Course: 72 F hx of Hypothyroidism, Anxiety and Depression, Hx VTE, HLD, GERD, Hx SBO s/p7 prior abdominal surgeries including small bowel resection who presents to the [facility] ED on 03/16/23 with history of onset abdominal pain 2 days prior in her LLQ w/ last BM staurday prior. CT abd/pel w/ midly focally dilated small bowel in the left lower abdomen near the surgical anastomosis similar but increased compared to prior, ED d/w gen surg who requested NG and small bowel follow through. Pt improved and NG tube was DC'd and diet advanced on 03/17. Initially patient did well and then she had resumption of abdominal pain and vomiting, maden.p.o. again and refused NG but given nausea resolved this is not necessary. Retrialed food on 03/18 and initially did well with the clear liquids however after routine abdominal exam she vomited multiple times again. Discussed with surgery given her multiple abdominal surgeries with short gut syndrome, weight loss, inability to tolerate 2 trials of advancing diet, multiple adhesions it was recommended she be transferred to higher level of care. This was discussed with patient and she was agreeable. Patient accepted to [facility] by Dr. Almanza. Physical Exam Narrative General: Alert, oriented, initially was in no apparent distress but after abdominal exam patient began acutely vomiting HEENT: Atraumatic, normocephalic Eyes: Anicteric, normal conjunctiva, extraocular movements grossly intact Neck: Supple Respiratory: Clear to auscultation bilaterally, normal respiratory effort Cardiovascular: Regular rate and rhythm GI: Soft, nondistended, initially had some slight tenderness but no rebound, guarding, rigidity however as soon as abdominal exam was over patient felt extremely nauseous and vomited multiple times Extremities: No edema Musculoskeletal: Moving all extremities Neuro: No overt focal neurological deficits Skin: No rashes appreciated Psych: Tearful and anxious Medical Records Data Medical Nutrition Assessment Dietitian: Malnutrition Criteria Met Start: 03/16/23 15:24 Freq: Status: Active Protocol: Document 03/16/23 15:24 SHANNON (Rec: 03/16/23 15:24 SHANNON [id number]) Nutrition Malnutrition Evidence of Malnutrition Exists Yes Malnutrition (severe): Chronic Evidenced By Suboptimal Energy Intake ( Severe),Weight Loss (Severe) Intake Problem Inadequate Oral Intake Etiology related to GI dysfunction and NG in place for suction Signs/Symptoms as evidenced by NPO status Status Active Problem Clinical Problem Chronic Disease or Condition Related Malnutrition Etiology related to inadequate energy intake Signs/Symptoms as evidenced by <50% po intake x 1 year and unintended wt loss of 10.4% x 3 mo and 16.7% unintended wt loss x 1 year. Status Active Problem Recommendation Dietitian Recommendations/Changes Rec JAHAIRA to Transitional as medically able w/ goal of liberal regular d/t signs and symptoms of malnutrition Rec ensure milkshake w/ L&D as medically able for increased nutrition if consumed Res parenteral nutrition support if NPO expected > 3 days Weight / BMI Weight Weight: 54.4 kg Body Mass Index (BMI) 22.6 ABG / Lab / Microbiology Data 03/18/23 05:21 03/18/23 05:21 Laboratory: Laboratory Results - last 24 hr 03/17/23 07:22: WBC 11.7 H, RBC 3.46 L, Hgb 10.2 L, Hct 31.7 L, MCV 91.6, MCH 29.5, MCHC 32.2, RDW Std Deviation 49.5 H, RDW Coeff of Neno 14.7 H, Plt Count 293, MPV 10.4, Immature Gran % (Auto) 0.400, Neut % (Auto) 78.2 H, Lymph % (Auto) 13.4 L, Maverick % (Auto) 6.5, Eos % (Auto) 1.2, Baso % (Auto) 0.3, Absolute Neuts (auto) 9.2 H, Absolute Lymphs (auto) 1.57, Nucleated RBC % 0, Sodium 140, Potassium 4.1, Chloride 112 H, Carbon Dioxide 21.0, Anion Gap 7, BUN 11, Creatinine 0.99, Estim Creat Clear Calc 39.33, Est GFR (MDRD) Af Amer 71, Est GFR (MDRD) Non-Af 59 L, BUN/Creatinine Ratio 11.1, Glucose 88, Calcium 8.4 L, Total Bilirubin 1.00, AST 198 H, ALT 130 H, Alkaline Phosphatase 179 H, Total Protein 6.4, Albumin 3.0 L, Globulin 3.4, Albumin/Globulin Ratio 0.9 Radiography Diagnostic Testing: Radiology Impression Small Bowel X-Ray 03/16/23 08:50 IMPRESSION: 1. Successful Gastrografin challenge. No bowel obstruction. Documentation of contrast in the colon at 6 hours. Electronically Signed: Fox Han (Brooks), at 16:19 EDT Reading Location ID and State: / [place] , Service support , D/C Instructions Discharge Diet: Light diet - advance as tolerated Meaningful Use Info Meaningful Use Diagnoses (Choose all that apply): None applicable Discharge Plan Admission Admit Date/Time: 03/16/23 06:30 Primary Reason for Your Visit: Partial bowel obstruction Attending Provider: Ivon Oliver Primary Care Provider: Kentrell Dhaliwal Consulting Providers: Jessica Thomas; Paulo Umanzor; Aly Fragoso Instructions Patient Instructions: Obstruction Intestinal Discharge Orders/Prescriptions Prescriptions: Continued ondansetron HCl 4 mg Tablet 4 mg PO Q6H PRN (Reason: Nausea) levothyroxine 50 mcg Tablet 50 mcg PO DAILY esomeprazole magnesium 20 mg capsule,delayed release(DR/EC) 20 mg PO DAILY ezetimibe 10 mg Tablet 10 mg PO DAILY bupropion HCl 150 mg tablet extended release 24 hr 150 mg PO BID Eliquis 5 mg Tablet 5 mg PO BID Held alprazolam [Xanax] 1 mg Tablet 1 mg PO BID Hold Instructions: Resume on 03/21/23. zolpidem [Ambien] 10 mg Tablet 10 mg PO QHS Hold Instructions: Resume on 03/21/23. Discontinued docusate sodium 100 mg capsule 100 mg PO BID Patient Comments: TAKE 1 CAPSULE BY MOUTH TWICE DAILY dicyclomine 10 mg capsule 20 mg PO TIDAC Qty: 20 0RF Referrals / Follow Up: Paulo Umanzor MD [Med Staff - Active Staff] - (Follow-up with surgery as needed) Kentrell Dhaliwal MD [Primary Care Provider] - Within 1 Week Care Physician,No Primary [Non-Staff] - Disposition Disposition (needs filled in before D/C Order can be placed): Home, Self Care Charges/Coding Visit Charges Inpatient E&M: 13219 Disch Hosp >30min 03/18/23 1624 <Electronically signed by Ivon Oliver MD> Cosigner Signature (if applicable): CC: Dr. Ivon Oliver MD; Dr. Kentrell Dhaliwal MD~ Signed [facility] Work Phone: 1(391) 491-650307-01-2023 Progress note Author Marvin Edwards [facility] March 17, 2023 7:04am Note Date/Time March 17, 2023 7:04a [facility] Medical Records Department [address] [place] [address] Progress Note - Surgery 03/17/23702 MR#: [id number] Acct: [id number] Name: KAITLYN ESCOBAR Rep #:[id number] : 1950 72 From: Marvin mathew MD PCP: Dr. Kentrell Dhaliwal MD Status:ADM IN Location: [facility] LF146-2 Subjective Subjective Patient reports she is doing much better today. She reports no abdominal pain. She had several bowel movements. She had no nausea. Objective Data Objective Data Vital Signs: Vital Signs Temp Pulse Resp BP Pulse Ox O2 Del Method 97.8 F 83 16 156/86 H 100 Room Air 03/17/23 02:25 03/17/23 02:25 03/17/23 02:25 03/17/23 02:25 03/17/23 02:25 03/17/23 02:25 Oxygen Delivery Method Room Air Weight: 119 lb 14.903 oz Body Mass Index (BMI) 22.6 Intake & Output: Intake and Output for Last 24 Hours 03/15/23 03/16/23 03/17/23 23:59 23:59 23:59 Intake Total 2358.33 / 2358.33 865 / 865 Output Total 450 / 450 150 / 150 Balance 1908.33 / 1908.33 715 / 715 Medical Nutrition Assessment Dietitian: Malnutrition Criteria Met Start: 03/16/23 15:24 Freq: Status: Active Protocol: Document 03/16/23 15:24 SLA (Rec: 03/16/23 15:24 SLA [id number]) Nutrition Malnutrition Evidence of Malnutrition Exists Yes Malnutrition (severe): Chronic Evidenced By Suboptimal Energy Intake ( Severe),Weight Loss (Severe) Intake Problem Inadequate Oral Intake Etiology related to GI dysfunction and NG in place for suction Signs/Symptoms as evidenced by NPO status Status Active Problem Clinical Problem Chronic Disease or Condition Related Malnutrition Etiology related to inadequate energy intake Signs/Symptoms as evidenced by <50% po intake x 1 year and unintended wt loss of 10.4% x 3 mo and 16.7% unintended wt loss x 1 year. Status Active Problem Recommendation Dietitian Recommendations/Changes Rec JAHAIRA to Transitional as medically able w/ goal of liberal regular d/t signs and symptoms of malnutrition Rec ensure milkshake w/ L&D as medically able for increased nutrition if consumed Res parenteral nutrition support if NPO expected > 3 days Lab / Micro Data 03/16/23 03:45 03/16/23 03:45 Radiography Diagnostic Testing: Radiology Impression KUB X-Ray 03/16/23 06:22 IMPRESSION: NG tube as described. Electronically Signed: Jessie Brasher MD at 7:06 EDT , Small Bowel X-Ray 03/16/23 08:50 IMPRESSION: 1. Successful Gastrografin challenge. No bowel obstruction. Documentation of contrast in the colon at 6 hours. Electronically Signed: Fox SnowsLuis Eduardo Han at 16:19 EDT , Physical Exam Const oriented x3 and no apparent distress GI normal to inspection, nondistended, normoactive bowel sounds Assessment & Plan Assessment/Plan (1) Partial small bowel obstruction: PLAN: Patient did have bowel movement. She is soft and nontender nondistended. I will remove the NG and start a diet as tolerated. If she tolerates diet she can go home later today. She may follow-up with Dr. Umanzor as needed. Marvin Edwards MD Pager: [facility] [address] [place] [address], [address] [place] [address] Office: 03/17/23 0704 <Electronically signed by Marvin Edwards MD> Cosigner Signature (if applicable): CC: ~ Signed [facility] Work Phone: 1(878) 351-261906-30-2023 Consult note Author Paulo Umanzor [facility] March 16, 2023 5:57pm Note Date/Time March 16, 2023 10:5 7am [facility] Medical Records Department [address] [place] [address] Consultation - Surgical 03/16/23 1057 MR#: [id number] Acct: [id number] Name: KAITLYN ESCOBAR Rep #:[id number] : 1950 72 From: Paulo Escoto PCP: Dr. Kentrell Dhaliwal MD Status:ADM IN Location: [facility] [id number] Assessment & Plan Assessment/Plan (1) Partial small bowel obstruction: PLAN: This is a 72-year-old female, with a past history of multiple small bowel obstructions requiring surgery, who presents with signs and symptoms of abdominal pain, constipation, and nausea. CT suggests possible partial small bowel obstruction. Patient has tenderness on exam. In my review of the patient's history I clarify with her that her prior resections involved her small intestine and not her colon as was previously reported. Given the large amount of small intestine resected, she admits she is now considered short gut syndrome. This fits better with her CT imaging which shows normal length colon,but abbreviated small bowel segment with a anastomosis within the mid small bowel. There also appears to be some chronic dilation of this anastomosis. I did not appreciate any transition points within the small bowel. I did observe significant fecal burden throughout the entirety of the colon and rectum. Therefore I have shared with Mrs. Escobar that I would recommend transfer to a tertiary facility should she proved to have a small bowel obstruction with need for intervention, but that I felt this was unlikely based on her history and imaging findings. My reasoning for this recommendation for transfer includes the inability to Nicole make total parenteral nutrition to an individual patient's needs. To better investigate her current bowel function I suggested we initiate a small bowel follow-through via her nasogastric tube. This was initiated this morning and has been followed up with a 6-hour plain film at 1500this afternoon. This study shows transit of contrast throughout her bowel, but with patient is visited 45 minutes later she still denies any return of bowel function apart from a single episode of flatus. She does report improvements inher abdominal discomfort?particularly of her left lower abdominal quadrant. ? Await return of bowel function ? If patient experiences return of bowel function with plan to remove her nasogastric tube and initiate liquid diet (2) Constipation: HPI Consult Data Date of Consult: 03/16/23 HPI Narrative Reason for Consultation: Small bowel obstruction HPI Narrative: KAITLYN ESCOBAR, is a 72 F who presents to [facility] with complaints of constipation and abdominal pain. She reports her last bowel movement was 03/11/2023 and she began with pain of her abdomen on 03/14/2023. She notified her primary care provider of this change and she was advised to present to the hospital, but she elected to wait an additional day when the pain persisted she decided to present. Along with the above symptoms she has some associated nausea but no vomiting. Considering her constipation, she states that she was taking MiraLAX twice a dayto try to have a bowel movement. She denies any use of pain medications at home. When asked about her fluid intake, she states she prefers to drink iced tea. ER work-up was notable for normal CMP, but CT imaging of the abdomen pelvis showed concern for possible small bowel obstruction?occasioning this consult. NG tube was placed by emergency medicine and patient was admitted to the floor. Patient has a history of hysterectomy, appendectomy, cholecystectomy, small bowel resection, and several adhesiolysis procedures. She states her trouble with bowel obstructions began following a bleeding delivery at the age of 32 or 33. She estimates that she has had 7 prior admissions for small bowel obstructions in her lifetime. She notes that the most recent obstruction led toher having 40% of her lower bowel removed. She states this procedure was further complicated by the development of abscesses TPN administration. This was reportedly done by Dr. Chicas formerly of [facility] who has since moved to [place]. 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 Ms. Escobar denies any recent colonoscopies and states that she had a single colonoscopy approximately 20 years ago, but reports that her last evaluation forthis procedure was in [facility] and she was advised to forego any colonoscopies as she was more likely to be at risk for colon perforation and development of colon cancer. [facility] Medical History (Updated 03/16/23 @ 17:[address] Paulo Umanzor MD) Anxiety and depression Chronic anemia CKD (chronic kidney disease), stage III Depression DVT (deep venous thrombosis) GERD (gastroesophageal reflux disease) History of small bowel obstruction History of venous thromboembolism HLD (hyperlipidemia) Hyperthyroidism Hypothyroidism Irritable bowel Scarlet fever Home Medications alprazolam 1 mg tablet (Xanax) 1 mg PO BID 12/11/22 [History Last Taken Unknown] apixaban 5 mg tablet (Eliquis) 5 mg PO BID 12/11/22 [History Last Taken Unknown] bupropion HCl 150 mg 24 hr tablet, extended release 150 mg PO BID 12/11/22 [History Last Taken Unknown] dicyclomine 10 mg capsule 20 mg (2 x 10 mg) PO TIDAC #20 CAPSULES 12/11/22 [Rx Last Taken Unknown] docusate sodium 100 mg capsule 100 mg PO BID 12/11/22 [History Last Taken Unknown] esomeprazole magnesium 20 mg capsule,delayed release 20 mg PO DAILY 12/11/22 [History Last Taken Unknown] ezetimibe 10 mg tablet 10 mg PO DAILY 12/11/22 [History Last Taken Unknown] levothyroxine 50 mcg tablet 50 mcg PO DAILY 12/11/22 [History Last Taken Unknown] ondansetron HCl 4 mg tablet 4 mg PO Q6H PRN Nausea 12/11/22 [History Last Taken Unknown] zolpidem 10 mg tablet (Ambien) 10 mg PO QHS 12/11/22 [History Last Taken Unknown] Allergy/AdvReac Type Severity Reaction Status Date / Time cefdinir [From Omnicef] Allergy Hives Verified 12/11/22 22:27 codeine Allergy NEEDS Verified 12/11/22 22:27 FOLLOW-UP latex Allergy Anaphylaxis Verified 12/11/22 22:27 prochlorperazine Allergy NEEDS Verified 12/11/22 22:47 [From Compazine] FOLLOW-UP shellfish derived Allergy Anaphylaxis Verified 03/16/23 03:34 levofloxacin [From Levaquin] AdvReac Vomiting Verified 12/11/22 22:27 [id number] Reductase AdvReac NEEDS Verified 12/11/22 22:27 Inhibitor FOLLOW-UP Family History (Updated 03/16/23 @ 06:[address] Jessica Thomas MD) Mother Heart disease COPD (chronic obstructive pulmonary disease) Father Heart disease Hypertension CAD (coronary artery disease) Myocardial infarction Surgical History (Updated 03/16/23 @ 06:[address] Jessica Thomas MD) History of appendectomy History of cholecystectomy History of colon surgery History of total abdominal hysterectomy Social History (Updated 03/16/23 @ 06:[address] Jessica Thomas MD) household members: none Smoking Status: Never smoker alcohol intake: never substance use type: does not use ROS Gastrointestinal Gastrointestinal: Reports change in bowel habits and constipation Physical Exam Const alert and oriented x3 Constitutional Narrative: Patient appears mildly distressed and uncomfortable General Appearance: cooperative HEENT HEENT Narrative: Nasogastric tube placed via left nare Resp normal respiratory effort GI GI Narrative: Mildly distended, numerous scars across anterior abdominal wall including midline laparotomy and right paramedian incision (patient reports this was used for open cholecystectomy). No visible hernias. Patient is diffusely tender to palpation with voluntary guarding present. Nasogastric tube output is thin serous fluid. Lab / Micro Data 03/16/23 03:45 03/16/23 03:45 Labs: Laboratory Results - last 24 hr 03/16/23 03:45: WBC 8.4, RBC 3.96 L, Hgb 11.4 L, Hct 35.4 L, MCV 89.4, MCH 28.8,MCHC 32.2, RDW Std Deviation 49.0 H, RDW Coeff of Neno 14.7 H, Plt Count 361, MPV10.0, Immature Gran % (Auto) 0.400, Neut % (Auto) 48.5, Lymph % (Auto) 40.6, Maverick % (Auto) 8.3, Eos % (Auto) 1.1, Baso % (Auto) 1.1 H, Absolute Neuts (auto) 4.1, Absolute Lymphs (auto) 3.41, Nucleated RBC % 0, Sodium 139, Potassium 4.1, Chloride 109 H, Carbon Dioxide 23.0, Anion Gap 7, BUN 18, Creatinine 1.49 H, Estim Creat Clear Calc 26.13, Est GFR (MDRD) Af Amer 44 L, Est GFR (MDRD) Non-Af37 L, BUN/Creatinine Ratio 12.1, Glucose 100, Calcium 9.0, Total Bilirubin 0.60,AST 18, ALT 18, Alkaline Phosphatase 105, Total Protein 7.5, Albumin 3.6, Globulin 3.9, Albumin/Globulin Ratio 0.9 03/16/23 05:13: Urine Color Yellow, Urine Clarity Clear, Urine pH 6.0, Ur Specific [place] 1.010, Urine Protein Negative, Urine Glucose (UA) Normal, UrineKetones Negative, Urine Occult Blood Negative, Urine Nitrite Negative, Urine Bilirubin Negative, Urine Urobilinogen Normal, Ur Leukocyte Esterase 25 H, UrineRBC 0 SEEN, Urine WBC 0-5 SEEN, Ur Squamous Epith Cells 0 SEEN, Urine Bacteria 0SEEN, Urine Mucus 0 SEEN Radiology Impression Abdomen/Pelvis CT 03/16/23 03:41 IMPRESSION: Mild focally dilated small bowel in the left lower abdomen near the surgical anastomosis, similar but increased compared to prior May BE related to postsurgical change. Focal ileus, enteritis, or partial low-grade small bowel obstruction not entirely excluded. Biliary dilatation is stable compared to prior study postcholecystectomy. Electronically Signed: Jessie Brasher MD at 5:35 EDT , KUB X-Ray 03/16/23 06:22 IMPRESSION: NG tube as described. Electronically Signed: Jessie Brasher MD at 7:06 EDT , Charges/Coding Visit Charges Inpatient E&M: 25648 Init Hosp L2 03/16/23 1757 <Electronically signed by Paulo Umanzor MD> Cosigner Signature (if applicable): CC: Dr. Jessica Thomas MD; Dr. Paulo Umanzor MD; Dr. Kentrell Dhaliwal MD~ Signed [facility] Work Phone: 1(688) 218-405606-30-2023 Discharge summary Author Jose Stanton [facility] March 16, 2023 6:56am Note Date/Time March 16, 2023 3:47 am [facility] Medical Records Department [address] [place] [address] Emergency Department Summary 03/16/23 MR#: [id number] Acct: [id number] Name: KAITLYN ESCOBAR Rep #:[id number] : 1950 72 From: Jose Stanton MD PCP: Dr. Kentrell Dhaliwal MD Status:ADM IN Location: MS3 DR406-7 HPI HPI - GI History of Present Illness Chief Complaint: Abd Pain Informant: patient Abdominal Pain/Flank Pain Onset: Days (2) Context: Gradual Onset Timing: Continuous Quality: Aching Location: - (Throughout the left abdomen) Current Severity: Severe Maximum Severity: Severe Worsened by: Nothing Relieved by: Nothing Nausea/Vomiting/Emesis GI Symptom: Positive for Nausea and Vomiting (2 days ago near the onset but nonesince) Quality: Positive for Nonbilious; Negative for Blood streaks, Coffee ground or Hematemesis Diarrhea/Melena/Hematochezia GI Symptom: Positive for - (Last bowel movement was a week ago and it was dark but not bloody) Associated Symptoms Associated Symptoms: Negative for Dysuria, Frequency or Hematuria Narrative Narrative: Patient has been having abdominal pain for the last couple days, she vomited near the onset but has not since. Tonight it is started to go into her left lowback. She states it feels like some type of bowel pain, however she is not exactly sure; she states she has had 7 surgeries on her bowels in the past. At least one of them was due to adhesions she states. [facility] Medical History (Updated 03/16/23 @ 06:[address] Jose Stanton MD) Hypothyroidism Home Medications alprazolam 1 mg tablet (Xanax) 1 mg PO BID 12/11/22 [History Last Taken Unknown] apixaban 5 mg tablet (Eliquis) 5 mg PO BID 12/11/22 [History Last Taken Unknown] bupropion HCl 150 mg 24 hr tablet, extended release 150 mg PO BID 12/11/22 [History Last Taken Unknown] dicyclomine 10 mg capsule 20 mg (2 x 10 mg) PO TIDAC #20 CAPSULES 12/11/22 [Rx Last Taken Unknown] docusate sodium 100 mg capsule 100 mg PO BID 12/11/22 [History Last Taken Unknown] esomeprazole magnesium 20 mg capsule,delayed release 20 mg PO DAILY 12/11/22 [History Last Taken Unknown] ezetimibe 10 mg tablet 10 mg PO DAILY 12/11/22 [History Last Taken Unknown] levothyroxine 50 mcg tablet 50 mcg PO DAILY 12/11/22 [History Last Taken Unknown] ondansetron HCl 4 mg tablet 4 mg PO Q6H PRN Nausea 12/11/22 [History Last Taken Unknown] zolpidem 10 mg tablet (Ambien) 10 mg PO QHS 12/11/22 [History Last Taken Unknown] Allergy/AdvReac Type Severity Reaction Status Date / Time cefdinir [From Omnicef] Allergy Hives Verified 12/11/22 22:27 codeine Allergy NEEDS Verified 12/11/22 22:27 FOLLOW-UP latex Allergy Anaphylaxis Verified 12/11/22 22:27 prochlorperazine Allergy NEEDS Verified 12/11/22 22:47 [From Compazine] FOLLOW-UP shellfish derived Allergy Anaphylaxis Verified 03/16/23 03:34 levofloxacin [From Levaquin] AdvReac Vomiting Verified 12/11/22 22:27 [id number] Reductase AdvReac NEEDS Verified 12/11/22 22:27 Inhibitor FOLLOW-UP Surgical History History of appendectomy History of cholecystectomy History of colon surgery Social History Smoking Status: Never smoker ROS ROS ED Constitutional Constitutional ED: Reports malaise and poor appetite; Denies chills or fever(s) Eyes Eyes: Denies change in vision or diplopia ENT ENT ED: Denies rhinorrhea or sore throat Cardiovascular Cardiovascular: Denies chest pain or palpitations Respiratory/Chest Respiratory/Chest: Denies cough or dyspnea Gastrointestinal Gastrointestinal: Reports abdominal pain, nausea and vomiting; Denies diarrhea, hematemesis or hematochezia Genitourinary Genitourinary ED: Reports decreased urination; Denies dysuria or hematuria Musculoskeletal Musculoskeletal: Reports back pain; Denies neck pain Integumentary Denies abscess or rash Neurologic Neurologic: Denies headache(s), paresthesias or weakness Psychiatric Psychiatric: Denies anxiety or suicidal thoughts EXAM Physical Exam Const Vital Signs: 03/16/23 03:35 Temperature 96.5 F L Temperature Source Temporal Pulse Rate 74 Respiratory Rate 18 Blood Pressure 124/94 H Blood Pressure Mean 104 Pulse Ox 100 Positive well nourished and well developed General Appearance ED: well developed and NAD HEENT Reports moist mucous membranes normocephalic and atraumatic Eyes PERRL and EOMs intact bilaterally Neck full ROM and supple Resp normal respiratory effort and clear to auscultation bilaterally Cardio regular rate, regular rhythm and no murmurs GI non-distended GI Narrative: Moderate to severe tenderness throughout the left side without guarding or rebound tenderness. No pulsatile mass palpable. Auscultation: normoactive bowel sounds Palpation: soft Back/Spine no CVA tenderness General Back: other FROM Extremity normal to inspection General Extremety ED: Negative for edema, pulses abnormal or tenderness General Extremity: Negative for edema or pulses abnormal Neuro oriented x3, CN's II-XII intact bilaterally and no sensory deficits noted Sensorium / Orientation: awake and alert Motor Exam: strength 5/5 throughout Skin no rashes or lesions noted and no wounds MDM MDM MDM Narrative Medical decision making narrative: CT obtained in addition to labs, IV fluids, Zofran, morphine given for symptoms. I reviewed the CT images and the interpretation which I agree with, basically there is a narrowing at the anastomosis which is where the patient is hurting inthe left lower quadrant mostly, that may be consistent with a partial small bowel obstruction, difficult to tell according to the radiologist if this is just postsurgical change. Given her focal symptoms and the fact that she does not have pain here all the time, patient has been fairly miserable over the past48 hours or so, lives by herself, and agrees with staying in the hospital for further evaluation. Will maintain n.p.o. Discussed with surgery Dr. Umanzor, who reviewed the images as well. He recommends placing an NG in the ED in preparation for small bowel follow-through. Lab Data Attestation: I reviewed the patient's lab results. Labs: Laboratory Results - last 24 hr 03/16/23 03/16/23 03:45 05:13 WBC 8.4 RBC 3.96 L Hgb 11.4 L Hct 35.4 L MCV 89.4 MCH 28.8 MCHC 32.2 RDW Std Deviation 49.0 H RDW Coeff of Neno 14.7 H Plt Count 361 MPV 10.0 Immature Gran % (Auto) 0.400 Neut % (Auto) 48.5 Lymph % (Auto) 40.6 Maverick % (Auto) 8.3 Eos % (Auto) 1.1 Baso % (Auto) 1.1 H Absolute Neuts (auto) 4.1 Absolute Lymphs (auto) 3.41 Nucleated RBC % 0 Sodium 139 Potassium 4.1 Chloride 109 H Carbon Dioxide 23.0 Anion Gap 7 BUN 18 Creatinine 1.49 H Estim Creat Clear Calc 26.13 Est GFR (MDRD) Af Amer 44 L Est GFR (MDRD) Non-Af 37 L BUN/Creatinine Ratio 12.1 Glucose 100 Calcium 9.0 Total Bilirubin 0.60 AST 18 ALT 18 Alkaline Phosphatase 105 Total Protein 7.5 Albumin 3.6 Globulin 3.9 Albumin/Globulin Ratio 0.9 Urine Color Yellow Urine Clarity Clear Urine pH 6.0 Ur Specific [place] 1.010 Urine Protein Negative Urine Glucose (UA) Normal Urine Ketones Negative Urine Occult Blood Negative Urine Nitrite Negative Urine Bilirubin Negative Urine Urobilinogen Normal Ur Leukocyte Esterase 25 H Urine RBC 0 SEEN Urine WBC 0-5 SEEN Ur Squamous Epith Cells 0 SEEN Urine Bacteria 0 SEEN Urine Mucus 0 SEEN Radiography Diagnostic Testing: Clinical Impression(s) from Imaging Studies Abdomen/Pelvis CT 03/16/23 03:41 IMPRESSION: Mild focally dilated small bowel in the left lower abdomen near the surgical anastomosis, similar but increased compared to prior May BE related to postsurgical change. Focal ileus, enteritis, or partial low-grade small bowel obstruction not entirely excluded. Biliary dilatation is stable compared to prior study postcholecystectomy. Electronically Signed: Jessie Brasher MD at 5:35 EDT , Management Discussion w/another healthcare provider: Hospitalist and Building Services Coordinator (Surgery) Discharge Plan Dx/Rx/DC Orders Clinical Impression: Partial small bowel obstruction Disposition Disposition: Acute Care Hospital [facility] What to do if you have Problems For any increased pain, shortness of breath, bleeding, nausea or vomiting, chestpain, or any unexpected problems, contact your Primary Care Provider. Call [facility] ([phone]) or report to the closest Emergency Room. Call 911 if necessary. 03/16/23 0622 <Electronically signed by Jose Stanton MD> Cosigner Signature (if applicable): CC: Dr. Kentrell Dhaliwal MD ~ Signed ADDENDUM by Dr. Jose Stanton MD on 03/16/23 at 0656 KUB obtained one-view portable on my interpretation shows good NG tube placement. 03/16/23 0656<Electronically signed by Jose Stanton MD> Cosigner Signature (if applicable): cc: Dr. Kentrell Dhaliwal MD ~* Signed [facility] Work Phone: 1(315) 564-247706-30-2023 History and physical note Author Jessica Thomas [facility] March 16, 2023 6:39am Note Date/Time March 16, 2023 6:31 am [facility] Medical Records Department [address] [place] [address] H&P Exam - Hospitalist 03/16/23 0631 MR#: [id number] Acct: [id number] Name: KAITLYN ESCOBAR Rep #:[id number] : 1950 72 From: Jessica Thomas MD PCP: Dr. Kentrlel Dhaliwal MD Status:ADM IN Location: [place] [address] HPI - General General Date of Admission: 03/16/23 Date of Service: 03/16/23 Chief Complaint: Abdominal pain, N/V. HPI Narrative The patient is a 72 y/o F w/ PMHx: Hypothyroidism, Anxiety and Depression, Hx VTE, HLD, GERD, Hx SBO s/p 7 prior abdominal surgeries including bowel resectionwho presents to the [facility] ED on 03/16/23 with history of onset abdominal pain over the last 2 days continuous in nature, aching, associated with nausea and emesis with pain primarily focally in the left lower quadrant and no severe marked distention however patient reports last bowel movement the Sunday prior and last flatus on day prior earlier in the day prompting eventual ED evaluation secondary to concerns bowel related with associated decreased oral intake. She does report that this is different than her prior bowel obstructions and the fact that is more focal pain and more severe and sharp. She rates her pain initially 10 of 10 in severity but following current interventions 5 out of 10 in severity. Work-up in the ED included T96.5, heart rate 74, BP 124/94, respiratory rate 18, #room air, CBC with WC 8.4, hemoglobin 11.4, MCV 89.4, platelet 361 without marked shift, CMP with chloride 109, BUN/creatinine 18/1.49, medic profile unremarkable, urinalysis unremarkable, CT abdomen pelvis with mildly focally dilated small bowel in the left lower abdomen near the surgical anastomosis similar but increased compared to prior possibly related topostsurgical change however focal ileus, enteritis or partial low-grade small bowel obstruction cannot be entirely excluded, biliary dilatation is stable compared to prior study postcholecystectomy. In the ED patient ministered 1 L normal saline, Zofran 4 mg IV x1 as well as morphine 4 mg IV x1. ED discussed case with Dr. Umanzor, general surgery who requested NG tube be placed and small bowel follow-through be initiated. [facility] Medical History (Updated 03/16/23 @ 06:[address] Jessica Thomas MD) Anxiety and depression GERD (gastroesophageal reflux disease) History of small bowel obstruction History of venous thromboembolism HLD (hyperlipidemia) Hypothyroidism Home Medications alprazolam 1 mg tablet (Xanax) 1 mg PO BID 12/11/22 [History Last Taken Unknown] apixaban 5 mg tablet (Eliquis) 5 mg PO BID 12/11/22 [History Last Taken Unknown] bupropion HCl 150 mg 24 hr tablet, extended release 150 mg PO BID 12/11/22 [History Last Taken Unknown] dicyclomine 10 mg capsule 20 mg (2 x 10 mg) PO TIDAC #20 CAPSULES 12/11/22 [Rx Last Taken Unknown] docusate sodium 100 mg capsule 100 mg PO BID 12/11/22 [History Last Taken Unknown] esomeprazole magnesium 20 mg capsule,delayed release 20 mg PO DAILY 12/11/22 [History Last Taken Unknown] ezetimibe 10 mg tablet 10 mg PO DAILY 12/11/22 [History Last Taken Unknown] levothyroxine 50 mcg tablet 50 mcg PO DAILY 12/11/22 [History Last Taken Unknown] ondansetron HCl 4 mg tablet 4 mg PO Q6H PRN Nausea 12/11/22 [History Last Taken Unknown] zolpidem 10 mg tablet (Ambien) 10 mg PO QHS 12/11/22 [History Last Taken Unknown] Allergy/AdvReac Type Severity Reaction Status Date / Time cefdinir [From Omnicef] Allergy Hives Verified 12/11/22 22:27 codeine Allergy NEEDS Verified 12/11/22 22:27 FOLLOW-UP latex Allergy Anaphylaxis Verified 12/11/22 22:27 prochlorperazine Allergy NEEDS Verified 12/11/22 22:47 [From Compazine] FOLLOW-UP shellfish derived Allergy Anaphylaxis Verified 03/16/23 03:34 levofloxacin [From Levaquin] AdvReac Vomiting Verified 12/11/22 22:27 Krkycqi-[id number]-[id number] Reductase AdvReac NEEDS Verified 12/11/22 22:27 Inhibitor FOLLOW-UP Family History (Updated 03/16/23 @ 06:[address] Jessica Thomas MD) Mother Heart disease COPD (chronic obstructive pulmonary disease) Father Heart disease Hypertension CAD (coronary artery disease) Myocardial infarction Surgical History (Updated 03/16/23 @ 06:[address] Jessica Thomas MD) History of appendectomy History of cholecystectomy History of colon surgery History of total abdominal hysterectomy Social History (Updated 03/16/23 @ 06:[address] Jessica Thomas MD) household members: none Smoking Status: Never smoker alcohol intake: never substance use type: does not use ROS ROS Narrative Admission Review of Systems: CONSTITUTIONAL: No weight loss, fever, chills, + weakness or fatigue. HEENT: Eyes: No visual loss, blurred vision, double vision or yellow sclerae. Ears, Nose, Throat: No hearing loss, sneezing, congestion, runny nose or sore throat. SKIN: No rash or itching, lesions, wounds. CARDIOVASCULAR: No chest pain, chest pressure or chest discomfort, palpitations,edema, orthopnea, syncopal events. RESPIRATORY: No shortness of breath, cough or sputum, wheezing, hemoptysis. GASTROINTESTINAL: + anorexia, nausea, vomiting, abdominal pain, lack of flatus, decreased BM history. No melena, BRBPR. GENITOURINARY: No dysuria, frequency, urgency or retention. NEUROLOGICAL: No headache, dizziness, syncope, paralysis, ataxia, numbness or tingling in the extremities, focal weakness, change in bowel or bladder control,seizure. MUSCULOSKELETAL: + muscle, back pain, joint pain or stiffness. HEMATOLOGIC: No anemia, bleeding or bruising. LYMPHATICS: No enlarged nodes. No history of splenectomy. PSYCHIATRIC: + history of depression or anxiety. ENDOCRINOLOGIC: No reports of sweating, cold or heat intolerance. No polyuria orpolydipsia. ALLERGIES: + History of hives and anaphylaxis. Vital Signs Vital Signs Vital Signs: 03/16/23 03:35 Temperature 96.5 F L Temperature Source Temporal Pulse Rate 74 Respiratory Rate 18 Blood Pressure 124/94 H Blood Pressure Mean 104 Pulse Ox 100 Weight Weight: 124 lb 1.924 oz Body Mass Index (BMI) 23.4 Physical Exam Narrative Physical Examination: General: Awake, alert, oriented x 3 and cooperative, seated upright in the bed, fatigued, reports pain currently 5 out of 10 in severity in the left lower quadrant, intermittently anxious and occasionally near tearful. Skin: Normal color, normal turgor, no icterus, no cyanosis. HEENT: AT/NC, EOMI, PERRLA, dry MM, no carotid bruits or JVD noted. Lungs: CTA bilaterally, moderate effort, mild decrease BL bases, no rales, ronchi or wheezing. Heart: Regular rate and rhythm; no gallop, rub audible. Abdomen: Soft, notable tenderness to palpation primarily in the left lower quadrant with voluntary guarding, no marked distention obvious, mildly reduced bowel sounds in the left lower quadrant and left upper quadrant, hyperactive bowel sounds right lower quadrant, no obvious HSM but difficult evaluation givenpain. Extremities: No cyanosis, clubbing, or edema. Neurological: Patient awake, alert, oriented as noted, cognitive function intact; pupils equally reactive to light and accommodation, cranial nerves II-XII grossly normal, moving all 4 extremities, no focal deficits, strength moderatelyto severely global decrease secondary to acute presentation. Psychiatric: Affect appears anxious, near tearful when discussing her mother whopassed of COPD, underlying history of anxiety and depression. Results Lab / Micro Data 03/16/23 03:45 03/16/23 03:45 Labs: Laboratory Results - last 24 hr 03/16/23 03:45: WBC 8.4, RBC 3.96 L, Hgb 11.4 L, Hct 35.4 L, MCV 89.4, MCH 28.8,MCHC 32.2, RDW Std Deviation 49.0 H, RDW Coeff of Neno 14.7 H, Plt Count 361, MPV10.0, Immature Gran % (Auto) 0.400, Neut % (Auto) 48.5, Lymph % (Auto) 40.6, Maverick % (Auto) 8.3, Eos % (Auto) 1.1, Baso % (Auto) 1.1 H, Absolute Neuts (auto) 4.1, Absolute Lymphs (auto) 3.41, Nucleated RBC % 0, Sodium 139, Potassium 4.1, Chloride 109 H, Carbon Dioxide 23.0, Anion Gap 7, BUN 18, Creatinine 1.49 H, Estim Creat Clear Calc 26.13, Est GFR (MDRD) Af Amer 44 L, Est GFR (MDRD) Non-Af37 L, BUN/Creatinine Ratio 12.1, Glucose 100, Calcium 9.0, Total Bilirubin 0.60,AST 18, ALT 18, Alkaline Phosphatase 105, Total Protein 7.5, Albumin 3.6, Globulin 3.9, Albumin/Globulin Ratio 0.9 03/16/23 05:13: Urine Color Yellow, Urine Clarity Clear, Urine pH 6.0, Ur Specific [place] 1.010, Urine Protein Negative, Urine Glucose (UA) Normal, UrineKetones Negative, Urine Occult Blood Negative, Urine Nitrite Negative, Urine Bilirubin Negative, Urine Urobilinogen Normal, Ur Leukocyte Esterase 25 H, UrineRBC 0 SEEN, Urine WBC 0-5 SEEN, Ur Squamous Epith Cells 0 SEEN, Urine Bacteria 0SEEN, Urine Mucus 0 SEEN Radiology Impression Abdomen/Pelvis CT 03/16/23 03:41 IMPRESSION: Mild focally dilated small bowel in the left lower abdomen near the surgical anastomosis, similar but increased compared to prior May BE related to postsurgical change. Focal ileus, enteritis, or partial low-grade small bowel obstruction not entirely excluded. Biliary dilatation is stable compared to prior study postcholecystectomy. Electronically Signed: Jessie Brasher MD at 5:35 EDT Reading Location ID and State: [facility] / [place] Tel , Service support , Assessment & Plan Assessment/Plan (1) Partial small bowel obstruction: PLAN: Plan The patient is a 72 y/o F w/ PMHx: Hypothyroidism, Anxiety and Depression, Hx VTE, HLD, GERD, Hx SBO s/p 7 prior abdominal surgeries including bowel resectionwho presents to the [facility] ED on 03/16/23 with history of onset abdominal pain over the last 2 days continuous in nature, aching, associated with nausea and emesis with pain primarily focally in the left lower quadrant and no severe marked distention however patient reports last bowel movement the Sunday prior and last flatus on day prior earlier in the day prompting eventual ED evaluation secondary to concerns bowel related with associated decreased oral intake. #1. Acute intractable abdominal pain secondary to possible partial low-grade small bowel obstruction: CT abdomen pelvis with mildly focally dilated small bowel in the left lower abdomen near the surgical anastomosis similar but increased compared to prior possibly related to postsurgical change however focal ileus, enteritis or partial low-grade small bowel obstruction cannot be entirely excluded, biliary dilatation is stable compared to prior study postcholecystectomy. Will admit to [facility], maintain on IVFs, continue NGT to suction, strict I&Os, IV pain/anti-emetics PRN, serial KUB as needed to montior bowel function, PPI IV, maintain NPO on bowel rest. General surgery consulted and current plan for small bowel follow-through. #2. Anxiety and depression: We will temporally hold patient home bupropion regimen, will have as needed low-dose Ativan for anxiety and hold her Xanax regimen. #3. Hypothyroidism: We will temporally hold patient home levothyroxine regimen. #4. Hyperlipidemia: We will hold patient home ezetimibe regimen. #5. 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 #6. GERD: We will maintain IV PPI. #7. DVT prophylaxis: We will temporally hold patient home Eliquis regimen and per surgery request hold on further anticoagulation in case of OR needs. #8. Code status: Full Code. Admission Evaluation Time spent evaluating chart, patient history, patient evaluation, care planning and discussion with specialists: 75 minutes. Charges/Coding Visit Charges Inpatient E&M: 24873 Init Hosp L3 03/16/23 0631 <Electronically signed by Jessica Thomas MD> Cosigner Signature (if applicable): CC: Dr. Jessica Thomas MD; Dr. Kentrell Dhaliwal MD~ Signed ADDENDUM by Dr. Jessica Thomas MD on 03/16/23 at 0639 Addendum Additional Diagnoses: Chronic normocytic anemia: Admission hemoglobin 11.4, MCV 89.4, baseline hemoglobin noted prior 10.9, stable, continue to trend. CKD stage III unclear subtype: Admission BUN/creatinine 18/1.49, baseline creatinine of prior 1.32, likely this is stable, continue to trend. 03/16/23 0639<Electronically signed by Jessica Thomas MD> Cosigner Signature (if applicable): cc: Dr. Jessica Thomas MD; Dr. Kentrell Dhaliwal MD ~* Signed [facility] Work Phone: 1(848) 568-157006-30-2023 Discharge summary Author Jose Stanton [facility] March 16, 2023 6:56am Note Date/Time March 16, 2023 3:47 am [facility] Medical Records Department [address] [place] [address] Emergency Department Summary 03/16/23 MR#: [id number] Acct: [id number] Name: KAITLYN ESCOBAR Rep #:[id number] : 1950 72 From: Jose Stanton MD PCP: Dr. Kentrell Dhaliwal MD Status:ADM IN Location: [place] [address]-1 HPI HPI - GI History of Present Illness Chief Complaint: Abd Pain Informant: patient Abdominal Pain/Flank Pain Onset: Days (2) Context: Gradual Onset Timing: Continuous Quality: Aching Location: - (Throughout the left abdomen) Current Severity: Severe Maximum Severity: Severe Worsened by: Nothing Relieved by: Nothing Nausea/Vomiting/Emesis GI Symptom: Positive for Nausea and Vomiting (2 days ago near the onset but nonesince) Quality: Positive for Nonbilious; Negative for Blood streaks, Coffee ground or Hematemesis Diarrhea/Melena/Hematochezia GI Symptom: Positive for - (Last bowel movement was a week ago and it was dark but not bloody) Associated Symptoms Associated Symptoms: Negative for Dysuria, Frequency or Hematuria Narrative Narrative: Patient has been having abdominal pain for the last couple days, she vomited near the onset but has not since. Tonight it is started to go into her left lowback. She states it feels like some type of bowel pain, however she is not exactly sure; she states she has had 7 surgeries on her bowels in the past. At least one of them was due to adhesions she states. [facility] Medical History (Updated 03/16/23 @ 06:[address] Jose Stanton MD) Hypothyroidism Home Medications alprazolam 1 mg tablet (Xanax) 1 mg PO BID 12/11/22 [History Last Taken Unknown] apixaban 5 mg tablet (Eliquis) 5 mg PO BID 12/11/22 [History Last Taken Unknown] bupropion HCl 150 mg 24 hr tablet, extended release 150 mg PO BID 12/11/22 [History Last Taken Unknown] dicyclomine 10 mg capsule 20 mg (2 x 10 mg) PO TIDAC #20 CAPSULES 12/11/22 [Rx Last Taken Unknown] docusate sodium 100 mg capsule 100 mg PO BID 12/11/22 [History Last Taken Unknown] esomeprazole magnesium 20 mg capsule,delayed release 20 mg PO DAILY 12/11/22 [History Last Taken Unknown] ezetimibe 10 mg tablet 10 mg PO DAILY 12/11/22 [History Last Taken Unknown] levothyroxine 50 mcg tablet 50 mcg PO DAILY 12/11/22 [History Last Taken Unknown] ondansetron HCl 4 mg tablet 4 mg PO Q6H PRN Nausea 12/11/22 [History Last Taken Unknown] zolpidem 10 mg tablet (Ambien) 10 mg PO QHS 12/11/22 [History Last Taken Unknown] Allergy/AdvReac Type Severity Reaction Status Date / Time cefdinir [From Omnicef] Allergy Hives Verified 12/11/22 22:27 codeine Allergy NEEDS Verified 12/11/22 22:27 FOLLOW-UP latex Allergy Anaphylaxis Verified 12/11/22 22:27 prochlorperazine Allergy NEEDS Verified 12/11/22 22:47 [From Compazine] FOLLOW-UP shellfish derived Allergy Anaphylaxis Verified 03/16/23 03:34 levofloxacin [From Levaquin] AdvReac Vomiting Verified 12/11/22 22:27 [id number] Reductase AdvReac NEEDS Verified 12/11/22 22:27 Inhibitor FOLLOW-UP Surgical History History of appendectomy History of cholecystectomy History of colon surgery Social History Smoking Status: Never smoker ROS ROS ED Constitutional Constitutional ED: Reports malaise and poor appetite; Denies chills or fever(s) Eyes Eyes: Denies change in vision or diplopia ENT ENT ED: Denies rhinorrhea or sore throat Cardiovascular Cardiovascular: Denies chest pain or palpitations Respiratory/Chest Respiratory/Chest: Denies cough or dyspnea Gastrointestinal Gastrointestinal: Reports abdominal pain, nausea and vomiting; Denies diarrhea, hematemesis or hematochezia Genitourinary Genitourinary ED: Reports decreased urination; Denies dysuria or hematuria Musculoskeletal Musculoskeletal: Reports back pain; Denies neck pain Integumentary Denies abscess or rash Neurologic Neurologic: Denies headache(s), paresthesias or weakness Psychiatric Psychiatric: Denies anxiety or suicidal thoughts EXAM Physical Exam Const Vital Signs: 03/16/23 03:35 Temperature 96.5 F L Temperature Source Temporal Pulse Rate 74 Respiratory Rate 18 Blood Pressure 124/94 H Blood Pressure Mean 104 Pulse Ox 100 Positive well nourished and well developed General Appearance ED: well developed and NAD HEENT Reports moist mucous membranes normocephalic and atraumatic Eyes PERRL and EOMs intact bilaterally Neck full ROM and supple Resp normal respiratory effort and clear to auscultation bilaterally Cardio regular rate, regular rhythm and no murmurs GI non-distended GI Narrative: Moderate to severe tenderness throughout the left side without guarding or rebound tenderness. No pulsatile mass palpable. Auscultation: normoactive bowel sounds Palpation: soft Back/Spine no CVA tenderness General Back: other FROM Extremity normal to inspection General Extremety ED: Negative for edema, pulses abnormal or tenderness General Extremity: Negative for edema or pulses abnormal Neuro oriented x3, CN's II-XII intact bilaterally and no sensory deficits noted Sensorium / Orientation: awake and alert Motor Exam: strength 5/5 throughout Skin no rashes or lesions noted and no wounds MDM MDM MDM Narrative Medical decision making narrative: CT obtained in addition to labs, IV fluids, Zofran, morphine given for symptoms. I reviewed the CT images and the interpretation which I agree with, basically there is a narrowing at the anastomosis which is where the patient is hurting inthe left lower quadrant mostly, that may be consistent with a partial small bowel obstruction, difficult to tell according to the radiologist if this is just postsurgical change. Given her focal symptoms and the fact that she does not have pain here all the time, patient has been fairly miserable over the past48 hours or so, lives by herself, and agrees with staying in the hospital for further evaluation. Will maintain n.p.o. Discussed with surgery Dr. Umanzor, who reviewed the images as well. He recommends placing an NG in the ED in preparation for small bowel follow-through. Lab Data Attestation: I reviewed the patient's lab results. Labs: Laboratory Results - last 24 hr 03/16/23 03/16/23 03:45 05:13 WBC 8.4 RBC 3.96 L Hgb 11.4 L Hct 35.4 L MCV 89.4 MCH 28.8 MCHC 32.2 RDW Std Deviation 49.0 H RDW Coeff of Neno 14.7 H Plt Count 361 MPV 10.0 Immature Gran % (Auto) 0.400 Neut % (Auto) 48.5 Lymph % (Auto) 40.6 Maverick % (Auto) 8.3 Eos % (Auto) 1.1 Baso % (Auto) 1.1 H Absolute Neuts (auto) 4.1 Absolute Lymphs (auto) 3.41 Nucleated RBC % 0 Sodium 139 Potassium 4.1 Chloride 109 H Carbon Dioxide 23.0 Anion Gap 7 BUN 18 Creatinine 1.49 H Estim Creat Clear Calc 26.13 Est GFR (MDRD) Af Amer 44 L Est GFR (MDRD) Non-Af 37 L BUN/Creatinine Ratio 12.1 Glucose 100 Calcium 9.0 Total Bilirubin 0.60 AST 18 ALT 18 Alkaline Phosphatase 105 Total Protein 7.5 Albumin 3.6 Globulin 3.9 Albumin/Globulin Ratio 0.9 Urine Color Yellow Urine Clarity Clear Urine pH 6.0 Ur Specific [place] 1.010 Urine Protein Negative Urine Glucose (UA) Normal Urine Ketones Negative Urine Occult Blood Negative Urine Nitrite Negative Urine Bilirubin Negative Urine Urobilinogen Normal Ur Leukocyte Esterase 25 H Urine RBC 0 SEEN Urine WBC 0-5 SEEN Ur Squamous Epith Cells 0 SEEN Urine Bacteria 0 SEEN Urine Mucus 0 SEEN Radiography Diagnostic Testing: Clinical Impression(s) from Imaging Studies Abdomen/Pelvis CT 03/16/23 03:41 IMPRESSION: Mild focally dilated small bowel in the left lower abdomen near the surgical anastomosis, similar but increased compared to prior May BE related to postsurgical change. Focal ileus, enteritis, or partial low-grade small bowel obstruction not entirely excluded. Biliary dilatation is stable compared to prior study postcholecystectomy. Electronically Signed: Jessie Brasher MD at 5:35 EDT , Management Discussion w/another healthcare provider: Hospitalist and Building Services Coordinator (Surgery) Discharge Plan Dx/Rx/DC Orders Clinical Impression: Partial small bowel obstruction Disposition Disposition: Acute Care Hospital [facility] What to do if you have Problems For any increased pain, shortness of breath, bleeding, nausea or vomiting, chestpain, or any unexpected problems, contact your Primary Care Provider. Call [facility] ([phone]) or report to the closest Emergency Room. Call 911 if necessary. 03/16/23 0622 <Electronically signed by Jose Stanton MD> Cosigner Signature (if applicable): CC: Dr. Kentrell Dhaliwal MD ~ Signed ADDENDUM by Dr. Jose Stanton MD on 03/16/23 at 0656 KUB obtained one-view portable on my interpretation shows good NG tube placement. 03/16/23 0656<Electronically signed by Jose Stanton MD> Cosigner Signature (if applicable): cc: Dr. Kentrell Dhaliwal MD ~* Signed [facility] Work Phone: 1(100) 552-106705-15-2023 Miscellaneous Notes* Telephone Encounter - Garima Drew MA - 01/29/2023 11:30 AM EDT Pharmacy faxed requesting the following refill Refill(s) Requested: Requested Prescriptions Pending Prescriptions Disp Refills ondansetron (ZOFRAN) 8 mg tablet 30 tablet 0 Sig: Take 1 tablet by mouth every 8 hours as needed for nausea/vomiting. zolpidem (AMBIEN) 10 mg 30 tablet 2 Sig: Take 1 tablet by mouth at bedtime as needed for up to 90 days. For Insomnia ALLERGIES Allergen Reactions Latex Anaphylaxis Abilify [Aripiprazo* Other: See Comments Muscles couldn't get up Codeine Diarrhea Compazine [Prochlor* Myalgia Levaquin [Levofloxa* Diarrhea Omnicef [Cefdinir] Diarrhea Prednisone GI Upset Covumiv-Ugf-Tpn Red* Diarrhea Sulfa (Sulfonamide * Other: See Comments Leg pain Shellfish Containin* Swelling (home) [phone] (cell) Last Office Visit Date: 11/23/2022 Last Distance Health Visit: Visit date not found Future Appointment: 05/25/2023 The patients preferred pharmacy has been captured for this encounter? yes Request is for script(s) to be escript to pharmacy. Garima Drew MA [facility] Miscellaneous Notes* Telephone Encounter - Husam Grant MA - 01/17/2023 12:55 PM EDT Patient called requesting the following refill Refill(s) Requested: Requested Prescriptions Pending Prescriptions Disp Refills levothyroxine (SYNTHROID) 50 mcg tablet 90 tablet 1 Sig: Take 1 tablet by mouth once daily. hyoscyamine SR (LEVBID) 0.375 mg 12 hr tablet 60 tablet 0 Sig: Take 1 tablet by mouth twice daily. ALLERGIES Allergen Reactions Latex Anaphylaxis Abilify [Aripiprazo* Other: See Comments Muscles couldn't get up Codeine Diarrhea Compazine [Prochlor* Myalgia Levaquin [Levofloxa* Diarrhea Omnicef [Cefdinir] Diarrhea Prednisone GI Upset Yezttga-Qun-Gwd Red* Diarrhea Sulfa (Sulfonamide * Other: See Comments Leg pain Shellfish Containin* Swelling (home) [phone] (cell) Last Office Visit Date: 11/23/2022 Last Distance Health Visit: Visit date not found Future Appointment: 05/25/2023 The patients preferred pharmacy has been captured for this encounter? yes Request is for script(s) to be escript to pharmacy. [facility] [place] Husam Grant MA documented [facility]Reg[facility] Miscellaneous Notes* Telephone Encounter - Kentrell Dhaliwal II, MD - 12/13/2022 9:22 AM EDT Done * Telephone Encounter - Garima Drew MA - 12/12/2022 10:15 AM EDT Patient called stating she was recently seen in [facility] ER due to abdominal pain. CT Scan done and patient was informed that pain was due to recent surgery where stricture is starting to close. Patient was prescribed Bentyl x 5 days. Patient is asking if Dr. Dhaliwal could please call in [place] and Tran for her? Please advise Garima Drew MA documented in this encounterReg[facility]28-[address] Anderson [facility] December 11, 2022 11:52pm Note Date/Time December 11, 2022 10: 21pm [facility] Medical Records Department [address] [place] [address] Emergency Department Summary 12/11/22 MR#: [id number] Acct: [id number] Name: KAITLYN ESCOBAR Rep #:[id number] : 1950 72 From: Mika Anderson MD PCP: Care Physician,No Primary Status :REG ER Location: ED HPI HPI - GI History of Present Illness Chief Complaint: Abd Pain Detail of Chief Complaint: Abdominal pain with nausea concern for bowel obstruction Informant: patient and family Abdominal Pain/Flank Pain Onset: Today and Hours Context: Sudden Onset Timing: Continuous Quality: Cramping and Dull Location: - (Diffuse worse upper quadrant) Current Severity: Moderate Maximum Severity: Severe Worsened by: Food Relieved by: Nothing Nausea/Vomiting/Emesis GI Symptom: Positive for Nausea; Negative for Vomiting Diarrhea/Melena/Hematochezia GI Symptom: Negative for Diarrhea, Melena or Hematochezia Associated Symptoms Associated Symptoms: Negative for Dysuria, Frequency, Hematuria or Urgency Narrative Narrative: Patient is a 72-year-old woman with history of bowel obstruction with prior surgeries due to adhesions. She states she had 7 abdominal surgeries. She has had a total of 40% of her bowels removed. She does report nausea without vomiting. Last bowel movement was this morning. She states she passed gas onlyonce today. She states this feels similar to when she has had a bowel obstruction in the past. She is complaining of colicky abdominal pain. She denies fever, chills night sweats. Denies headache, visual, ocular auditorysymptoms. She denies cardiac or respiratory symptoms. She denies urologic symptoms. Prior similar symptoms: Yes Recent Illness/Hospitalization: No PFSH PFS Medical History (Updated 12/11/22 @ 23:[address] Mika Anderson MD) Hypothyroidism Home Medications alprazolam 1 mg tablet (Xanax) 1 mg PO BID 12/11/22 [History Last Taken Unknown] apixaban 5 mg tablet (Eliquis) 5 mg PO BID 12/11/22 [History Last Taken Unknown] bupropion HCl 150 mg 24 hr tablet, extended release 150 mg PO BID 12/11/22 [History Last Taken Unknown] dicyclomine 10 mg capsule 20 mg PO TIDAC #20 CAPSULES 12/11/22 [Rx Last Taken Unknown] docusate sodium 100 mg capsule 100 mg PO BID 12/11/22 [History Last Taken Unknown] esomeprazole magnesium 20 mg capsule,delayed release 20 mg PO DAILY 12/11/22 [History Last Taken Unknown] ezetimibe 10 mg tablet 10 mg PO DAILY 12/11/22 [History Last Taken Unknown] levothyroxine 50 mcg tablet 50 mcg PO DAILY 12/11/22 [History Last Taken Unknown] ondansetron HCl 4 mg tablet 4 mg PO Q6H PRN Nausea 12/11/22 [History Last Taken Unknown] zolpidem 10 mg tablet (Ambien) 10 mg PO QHS 12/11/22 [History Last Taken Unknown] Allergy/AdvReac Type Severity Reaction Status Date / Time cefdinir [From Omnicef] Allergy Hives Verified 12/11/22 22:27 codeine Allergy NEEDS Verified 12/11/22 22:27 FOLLOW-UP latex Allergy Anaphylaxis Verified 12/11/22 22:27 prochlorperazine Allergy NEEDS Verified 12/11/22 22:47 [From Compazine] FOLLOW-UP shellfish derived Allergy Anaphylaxis Verified 12/11/22 22:27 levofloxacin [From Levaquin] AdvReac Vomiting Verified 12/11/22 22:27 Afhmaty-NUN-LtP Reductase AdvReac NEEDS Verified 12/11/22 22:27 Inhibitor FOLLOW-UP Surgical History (Updated 12/11/22 @ 22:32 by Carla Harrison Self) History of appendectomy History of cholecystectomy History of colon surgery Social History Smoking Status: Never smoker EXAM Physical Exam Const Vital Signs: 12/11/22 20:26 12/11/22 22:35 12/11/22 22:35 Temperature 96.3 F L 98 F 98.0 F Temperature Source Temporal Oral Oral Pulse Rate 108 H 90 Respiratory Rate 24 H 18 Blood Pressure 182/103 H 161/93 H Blood Pressure Mean 129 115 Pulse Ox 108 97 Oxygen Delivery Method Room Air Room Air MDM MDM History & Record Review Discussion w/independent historian: Patient and Family Additional record(s) reviewed:: Prior outpatient record (Patient was seen for abdominal pain July [address] Amador. She had a CAT scan at that time which revealed mild prominence of the biliary duct consistent with cholecystectomy. Pancreas, spleen and adrenal glands, kidney and ureters were unremarkable. The stomach and duodenum was unrem), Prior ED visit and Prior labs Lab Data Attestation: I reviewed the patient's lab results. Lab results narrative: CBC reveals anemia. Differential is unremarkable. Basic metabolic panel reveals a creatinine of 1.32 with a GFR 42. Labs: Laboratory Results - last 24 hr 12/11/22 12/11/22 20:09 20:09 WBC 9.4 RBC 3.66 L Hgb 10.9 L Hct 32.5 L MCV 88.8 MCH 29.8 MCHC 33.5 RDW Std Deviation 45.2 H RDW Coeff of Neno 13.9 Plt Count 418 MPV 9.4 Immature Gran % (Auto) 0.300 Neut % (Auto) 57.1 Lymph % (Auto) 30.6 Maverick % (Auto) 9.3 Eos % (Auto) 2.1 Baso % (Auto) 0.6 Absolute Neuts (auto) 5.3 Absolute Lymphs (auto) 2.86 Nucleated RBC % 0 Sodium 139 Potassium 4.1 Chloride 112 H Carbon Dioxide 22.0 Anion Gap 5 BUN 18 Creatinine 1.32 H Estim Creat Clear Calc 30.92 Est GFR (MDRD) Af Amer 51 L Est GFR (MDRD) Non-Af 42 L BUN/Creatinine Ratio 13.6 Glucose 103 Calcium 8.7 Radiography Diagnostic Testing: Clinical Impression(s) from Imaging Studies Abdomen/Pelvis CT 12/11/22 21:33 IMPRESSION: 1. Status post small bowel resection with focal postsurgical ileus at the anastomosis. 2. Moderate intrahepatic and extrahepatic biliary ductal dilatation, may be normal in a postcholecystectomy patient, recommend correlation with biliary biochemistry. 3. Pulmonary nodule in the lingula measuring 2 mm. *Fleischner Society Recommendations (Radiology 2005;237:395-400.) (Follow-up and management of nodules smaller than 8 mm detected incidentally at non-screening CT. Newly detected indeterminate nodule in persons 35 years of age or older.) Low risk patient: Minimal or absent history of smoking and of other known risk factors. <= 4mm: No followup needed >4-6mm: Follow-up CT at 12 months, if unchanged - no further followup >6-8mm: Initial Follow-up CT at 6-12 months, then at 18-24 months if no change >8mm: Follow-up CT at 3, 9, and 24 months; FDG PET scan; and or biopsy High risk patient: History of smoking or of other known risk factors. <= 4mm: Follow-up CT at 12 months, if unchanged - no further followup >4-6mm: Initial Follow-up CT at 6-12 months, then at 18-24 months if no change >6-8mm: Initial Follow-up CT at 3-6 months, then at 9-12 and 24 months if no change >8mm: Follow-up CT at 3, 9, and 24 months; FDG PET scan; and or biopsy Note: Non-solid (ground-glass) or partly solid nodules may require longer follow-up to Electronically Signed: Travon Pantoja MD at 23:38 EDT , Treatment and Re-Evaluation :: Patient was informed of CAT scan results. Patient will receive dose of Bentyl in the emergency [place] and prescription to go home with. She was instructed to increase her Metamucil from once a day to twice a day. Discharge Plan Triage Chief Complaint: Abd Pain ED Provider: Mika Anderson Dx/Rx/DC Orders Clinical Impression: Ileus, Nausea, Hypertension, Anxiety, Acute generalized abdominal pain, Anticoagulant long-term use Instructions: Ileus Prescriptions: New dicyclomine 10 mg capsule 20 mg PO TIDAC Qty: 20 0RF No Action alprazolam [Xanax] 1 mg Tablet 1 mg PO BID ondansetron HCl [Zofran] 4 mg Tablet 4 mg PO Q6H PRN (Reason: Nausea) levothyroxine 50 mcg Tablet 50 mcg PO DAILY docusate sodium 100 mg capsule 100 mg PO BID Label Comments: TAKE 1 CAPSULE BY MOUTH TWICE DAILY zolpidem [Ambien] 10 mg Tablet 10 mg PO QHS esomeprazole magnesium 20 mg capsule,delayed release(DR/EC) 20 mg PO DAILY ezetimibe 10 mg Tablet 10 mg PO DAILY bupropion HCl 150 mg tablet extended release 24 hr 150 mg PO BID Eliquis 5 mg Tablet 5 mg PO BID Primary Care Provider: Care Physician,No Primary Referrals: Care Physician,No Primary [Primary Care Provider] - Doctor,Your [Non-Staff] - 3-5 Days if not improving Activity Restrictions/Additional Instructions: Increase Metamucil to twice a day for the next several days. Disposition Disposition: Home, Self Care What to do if you have Problems For any increased pain, shortness of breath, bleeding, nausea or vomiting, chestpain, or any unexpected problems, contact your Primary Care Provider. Call [facility] ([phone]) or report to the closest Emergency Room. Call 911 if necessary. 12/11/222351 <Electronically signed by Mika Anderson MD> Cosigner Signature (if applicable): CC: No Primary Care Physician ~ Signed [facility] Work Phone: [phone] Miscellaneous Notes* Telephone Encounter - Husam Grant MA - 12/11/2022 9:10 AM EDT Pharmacy faxed requesting the following refill Refill(s) Requested: Requested Prescriptions Pending Prescriptions Disp Refills ALPRAZolam (XANAX) 1 mg tablet [Pharmacy Med Name: alprazolam 1 mg tablet] 60 tablet 0 Sig: TAKE 1 TABLET BY MOUTH EVERY 12 HOURS NEEDED ALLERGIES Allergen Reactions Latex Anaphylaxis Abilify [Aripiprazo* Other: See Comments Muscles couldn't get up Codeine Diarrhea Compazine [Prochlor* Myalgia Levaquin [Levofloxa* Diarrhea Omnicef [Cefdinir] Diarrhea Prednisone GI Upset Qrfyvjf-Kah-Bnk Red* Diarrhea Sulfa (Sulfonamide * Other: See Comments Leg pain Shellfish Containin* Swelling (home) [phone] (cell) Last Office Visit Date: 11/23/2022 Last [facility] Visit: Visit date not found Future Appointment: 05/25/2023 The patients preferred pharmacy has been captured for this encounter? yes Request is for script(s) to be escript to pharmacy. Husam Grant MA documented in this encounterReg[facility]23 Miscellaneous Notes* Telephone Encounter - Husam Grant MA - 11/23/2022 4:58 PM EST Called patient and informed of lab results. Informed patient that lab results were in acceptable ranges and to recheck in 6 months or sooner if needed. Husam Grant MA * Telephone Encounter - Husam Grant MA - 11/23/2022 4:58 PM EST ----- Message from Kentrell Dhaliwal II, MD sent at 11/23/2022 1:56 PM EST ----- Labs are acceptable ranges. Recheck labs in 6 months or sooner if needed. documented in this encounterReg[facility]03-09-2023 Instructions* Patient Instructions* Kentrell Dhaliwal II, MD - 11/23/2022 11:06 AM EST Please consider having the following Health Maintenance testing completed: PNEUMOCOCCAL: 65+(1 - PCV) DILATED RETINAL EXAM DTAP,TDAP,TD(1 - Tdap) MAMMOGRAM COLORECTAL CANCER SCREENING SHINGRIX VACCINE(1 of 2) BONE DENSITY INFLUENZA(1) If your testing is not done at a [facility] facility please provide this office with the results of your testing. documented in this encounterReg[facility]-09-2023 History of Present illness Narrative* Kentrell Dhaliwal II, MD - 11/23/2022 11:04 AM EST Images from the original note were not included. Kentrell Dhaliwal II, MD [address], [place] [address] SUBJECTIVE Kaitlyn Escobar is a 72 year old female who presents with F/U 3 Month. HPI Patient is in today to follow-up her chronic problems including hypothyroidism and other issues. She states she is doing about the same and does not have any significant acute issues at this time. She does need some refills on medication and a new order for blood work. Review of Systems Constitutional: Negative for activity change, appetite change, chills, diaphoresis, fatigue, fever and unexpected weight change. HENT: Negative for congestion, dental problem, ear pain, hearing loss, nosebleeds, postnasal drip, rhinorrhea, sinus pressure, sinus pain, sore throat, trouble swallowing and voice change. Eyes: Negative for discharge, redness and visual disturbance. Respiratory: Negative for apnea, cough, choking, chest tightness, shortness of breath, wheezing andstridor. Cardiovascular: Negative for chest pain, palpitations and leg swelling. Gastrointestinal: Negative for abdominal distention, abdominal pain, blood in stool, constipation, diarrhea, nausea and vomiting. Endocrine: Negative for cold intolerance, heat intolerance, polydipsia, polyphagia and polyuria. Genitourinary: Negative for decreased urine volume, difficulty urinating, dysuria, enuresis, frequency, hematuria and urgency. Musculoskeletal: Negative for arthralgias, gait problem and myalgias. Skin: Negative for color change, pallor, rash and wound. Allergic/Immunologic: Negative for environmental allergies. Neurological: Negative for dizziness, tremors, syncope, facial asymmetry, speech difficulty, weakness, light-headedness, numbness and headaches. Hematological: Negative for adenopathy. Does not bruise/bleed easily. Psychiatric/Behavioral: Negative for agitation, behavioral problems, confusion, decreased concentration, dysphoric mood, hallucinations, self-injury, sleep disturbance and suicidal ideas. The patientis not nervous/anxious and is not hyperactive. PAST MEDICAL HISTORY Diagnosis Date Anxiety and depression Diabetes (HCC) Drug-induced Parkinson's disease (HCC) GERD (gastroesophageal reflux disease) History of DVT (deep vein thrombosis) IBS (irritable bowel syndrome) Seizures (HCC) Small bowel obstruction (HCC) Tremor PAST SURGICAL HISTORY Procedure Laterality Date CHOLECYSTECTOMY HX COLON SURGERY HX HYSTERECTOMY HX ROTATOR CUFF REPAIR Left TONSILLECTOMY HX WRIST SURGERY HX Right Social History Tobacco Use Smoking status: Never Smokeless tobacco: Never Vaping Use Vaping Use: Never used Substance Use Topics Alcohol use: Not Currently Drug use: Never FAMILY HISTORY Problem Relation Age of Onset Emphysema Mother Heart disease Father The ROS, medical, surgical, family, and social history were reviewed by Kentrell Dhaliwal II, MD ALLERGIES Allergen Reactions Latex Anaphylaxis Abilify [Aripiprazo* Other: See Comments Muscles couldn't get up Codeine Diarrhea Compazine [Prochlor* Myalgia Levaquin [Levofloxa* Diarrhea Omnicef [Cefdinir] Diarrhea Prednisone GI Upset [place]-Wtn-Rwu Red* Diarrhea Sulfa (Sulfonamide * Other: See Comments Leg pain Shellfish Containin* Swelling Current Outpatient Medications Medication Sig ALPRAZolam (XANAX) 1 mg tablet Take 1 tablet by mouth every 12 hours as needed for up to 30 days. zolpidem (AMBIEN) 10 mg TAKE 1 TABLET BY MOUTH EVERY DAY AT BEDTIME NEEDED FOR INSOMNIA esomeprazole (NEXIUM) 20 mg capsule Take 1 capsule by mouth twice daily before meals. ezetimibe (ZETIA) 10 mg tablet Take 1 tablet by mouth once daily. ondansetron (ZOFRAN) 8 mg tablet Take 1 tablet by mouth every 8 hours as needed for nausea/vomiting. docusate sodium (COLACE) 100 mg capsule Take 1 capsule by mouth twice daily. buPROPion XL (WELLBUTRIN XL) 150 mg 24 hr tablet Take 1 tablet by mouth once daily. SF 5000 PLUS 1.1 % dental cream levothyroxine (SYNTHROID) 50 mcg tablet Take 1 tablet by mouth once daily. apixaban (ELIQUIS) 5 mg tab(s) Take 1 tablet by mouth twice daily. No current facility-administered medications for this visit. OBJECTIVE BP 122/88 (BP Site: Left Arm, BP Position: Sitting) Pulse 75 Temp 36.4 C (97.6 F) Resp 12 Ht 154.9 cm (5' 1) Wt 61.7 kg (136 lb) SpO2 96% BMI 25.70 kg/m BMI 25.70 kg/(m^2) Physical Exam Vitals and nursing note reviewed. Constitutional: General: She is not in acute distress. Appearance: Normal appearance. She is not ill-appearing, toxic-appearing or diaphoretic. HENT: Head: Normocephalic and atraumatic. Right Ear: Tympanic membrane, ear canal and external ear normal. There is no impacted cerumen. Left Ear: Tympanic membrane, ear canal and external ear normal. There is no impacted cerumen. Nose: Nose normal. No congestion or rhinorrhea. Mouth/Throat: Mouth: Mucous membranes are moist. Pharynx: Oropharynx is clear. No oropharyngeal exudate or posterior oropharyngeal erythema. Eyes: General: No scleral icterus. Right eye: No discharge. Left eye: No discharge. Extraocular Movements: Extraocular movements intact. Conjunctiva/sclera: Conjunctivae normal. Pupils: Pupils are equal, round, and reactive to light. Neck: Vascular: No carotid bruit. Cardiovascular: Rate and Rhythm: Normal rate and regular rhythm. Pulses: Normal pulses. Heart sounds: Normal heart sounds. No murmur heard. No friction rub. No gallop. Pulmonary: Effort: Pulmonary effort is normal. No respiratory distress. Breath sounds: Normal breath sounds. No stridor. No wheezing, rhonchi or rales. Chest: Chest wall: No tenderness. Abdominal: General: Abdomen is flat. Bowel sounds are normal. There is no distension. Palpations: Abdomen is soft. There is no mass. Tenderness: There is no abdominal tenderness. There is no right CVA tenderness, left CVA tenderness, guarding or rebound. Hernia: No hernia is present. Musculoskeletal: General: No signs of injury. Cervical back: Normal range of motion and neck supple. No rigidity or tenderness. Comments: ROM and strength without significant changes from previous examinations and consistent with patient history Lymphadenopathy: Cervical: No cervical adenopathy. Skin: General: Skin is warm and dry. Capillary Refill: Capillary refill takes less than 2 seconds. Coloration: Skin is not jaundiced or pale. Findings: No erythema, lesion or rash. Neurological: General: No focal deficit present. Mental Status: She is alert and oriented to person, place, and time. Mental status is at baseline. Cranial Nerves: No cranial nerve deficit. Sensory: No sensory deficit. Motor: No weakness. Coordination: Coordination normal. Gait: Gait normal. Deep Tendon Reflexes: Reflexes normal. Psychiatric: Mood and Affect: Mood normal. Behavior: Behavior normal. Thought Content: Thought content normal. Judgment: Judgment normal. Labs: Hemoglobin (g/dL) Date Value 10/14/2022 11.8 Hematocrit (%) Date Value 10/14/2022 35.6 WBC (x10(3)) Date Value 10/14/2022 12.0 Platelet Count (X10(3)) Date Value 10/14/2022 437 Creatinine Date Value Ref Range Status 10/14/2022 1.34 (H) 0.50 - 0.90 mg/dL Final AST Date Value Ref Range Status 07/07/2022 24 5 - 32 U/L Final ALT Date Value Ref Range Status 07/07/2022 18 5 - 33 U/L Final Blood Culture (no units) Date Value 11/12/2021 XXX 11/12/2021 XXX Bilirubin, Total (mg/dL) Date Value 07/07/2022 0.5 Antibody Screen (no units) Date Value 11/01/2021 NEGATIVE WBC (x10(3)) Date Value 10/14/2022 12.0 (H) RBC (x10(6)) Date Value 10/14/2022 4.02 %DIG,%DBS Plan ASSESSMENT/PLAN: 1. Hypothyroidism, acquired - ICD9: 244.9, ICD10: E03.9 (primary diagnosis) - Instructed patient on importance of taking on an empty stomach either first thing in the morning or at bedtime. - check TSH today, in 3 months, and in 6 months - continue current dose of Synthroid - Follow up in 6 months Weight decreasing - Continue current medications - CBC - BASIC METABOLIC PNL - HEPATIC FUNCTION PNL - TSH BLD - HGB A1C 2. Type 2 diabetes mellitus without complication, without long-term current use of insulin (HCC) - ICD9: 250.00, ICD10: E11.9 - Controlled - Continue current medications - Blood glucose monitoring on a once daily schedule - Counseled on healthy diet and regular exercise - Discussed diabetic education issues of diabetes complications and monitoring required, hypoglycemic/hyperglycemic symptoms, and medication-specific side effects and monitoring - Follow up in 6 months, sooner should any other issues arise. - CBC - BASIC METABOLIC PNL - HEPATIC FUNCTION PNL - TSH BLD - HGB A1C 3. Gastroesophageal reflux disease, unspecified whether esophagitis present - ICD9: 530.81, ICD10: K21.9 Continue same medication and follow-up in 3 to 6 months or sooner if needed depending on her progress. - CBC - BASIC METABOLIC PNL - HEPATIC FUNCTION PNL - TSH BLD - HGB A1C 4. Anxiety and depression - ICD9: 300.00, 311, ICD10: F41.9, F32.A Clinically stable. Continue same medication and treatment. Follow up in 3 to 6 months or sooner if needed. - CBC - BASIC METABOLIC PNL - HEPATIC FUNCTION PNL - TSH BLD - HGB A1C 5. Elevated liver function tests - ICD9: 790.6, ICD10: R79.89 Stable.Check labs and follow-up with results and recommendations as indicated when available. - CBC - BASIC METABOLIC PNL - HEPATIC FUNCTION PNL - TSH BLD - HGB A1C 6. Irritable bowel syndrome with both constipation and diarrhea - ICD9: 564.1, ICD10: K58.2 Continue same medication and treatment. Follow up in 3 to 6 months or sooner if needed. Kentrell Dhaliwal II, MD Follow up: No follow-ups on file. Kentrell Dhaliwal II, M.D. documented in this encounterRegency [facility]02-27-2023 Miscellaneous Notes* Telephone Encounter - Garima Drew MA - 11/13/2022 11:50 AM EST Patient called requesting the following refill Refill(s) Requested: Requested Prescriptions Pending Prescriptions Disp Refills ALPRAZolam (XANAX) 1 mg tablet 60 tablet 0 Sig: Take 1 tablet by mouth every 12 hours as needed for up to 30 days. ALLERGIES Allergen Reactions Latex Anaphylaxis Abilify [Aripiprazo* Other: See Comments Muscles couldn't get up Codeine Diarrhea Compazine [Prochlor* Myalgia Levaquin [Levofloxa* Diarrhea Omnicef [Cefdinir] Diarrhea Prednisone GI Upset Erfkmlw-Dha-Jyf Red* Diarrhea Sulfa (Sulfonamide * Other: See Comments Leg pain Shellfish Containin* Swelling (home) [phone] (cell) Last Office Visit Date: 08/02/2022 Last [facility] Visit: Visit date not found Future Appointment: 11/17/2022 The patients preferred pharmacy has been captured for this encounter? yes Request is for script(s) to be escript to pharmacy. Garima Drew MA Patient called requesting the following refill Refill(s) Requested: Requested Prescriptions No prescriptions requested or ordered in this encounter ALLERGIES Allergen Reactions Latex Anaphylaxis Abilify [Aripiprazo* Other: See Comments Muscles couldn't get up Codeine Diarrhea Compazine [Prochlor* Myalgia Levaquin [Levofloxa* Diarrhea Omnicef [Cefdinir] Diarrhea Prednisone GI Upset Mzkhnpt-Fdb-Wmb Red* Diarrhea Sulfa (Sulfonamide * Other: See Comments Leg pain Shellfish Containin* Swelling (home) [phone] (cell) Last Office Visit Date: 08/02/2022 Last [facility] Visit: Visit date not found Future Appointment: 11/17/2022 The patients preferred pharmacy has been captured for this encounter? yes Request is for script(s) to be escript to pharmacy. Garima Drew MA refill documented in this encounterRegency [facility]02-14-2023 Miscellaneous Notes* Telephone Encounter - Garima Drew MA - 10/31/2022 11:12 AM EST Pharmacy faxed requesting the following refill Refill(s) Requested: Requested Prescriptions Pending Prescriptions Disp Refills zolpidem (AMBIEN) 10 mg [Pharmacy Med Name: zolpidem 10 mg tablet] 30 tablet 2 Sig: TAKE 1 TABLET BY MOUTH EVERY DAY AT BEDTIME NEEDED FOR INSOMNIA ALLERGIES Allergen Reactions Latex Anaphylaxis Abilify [Aripiprazo* Other: See Comments Muscles couldn't get up Codeine Diarrhea Compazine [Prochlor* Myalgia Levaquin [Levofloxa* Diarrhea Omnicef [Cefdinir] Diarrhea Prednisone GI Upset Scdxtnu-Lby-Zak Red* Diarrhea Sulfa (Sulfonamide * Other: See Comments Leg pain Shellfish Containin* Swelling (home) [phone] (cell) Last Office Visit Date: 08/02/2022 Last [facility] Visit: Visit date not found Future Appointment: 11/23/2022 The patients preferred pharmacy has been captured for this encounter? yes Request is for script(s) to be escript to pharmacy. Garima Drew MA refill documented in this encounterRegency Hospital [facility]12-20-2022 Miscellaneous Notes* Telephone Encounter - Kentrell Dhaliwal II, MD - 09/05/2022 5:42 PM EST Done * Telephone Encounter - Garima Drew MA - 09/05/2022 11:05 AM EST Patient called requesting medication for UTI. States burning, frequency, pressure and urgency x 2 days. Please advise Garima Drew MA documented in this encounterRegency Hospital [facility]11-29-2022 Miscellaneous Notes* Telephone Encounter - Husam Grant MA - 08/15/2022 8:14 AM EST Pharmacy faxed requesting the following refill Refill(s) Requested: Requested Prescriptions Pending Prescriptions Disp Refills ALPRAZolam (XANAX) 1 mg tablet [Pharmacy Med Name: alprazolam 1 mg tablet] 60 tablet 0 Sig: TAKE 1 TABLET BY MOUTH EVERY 12 HOURS NEEDED ALLERGIES Allergen Reactions Latex Anaphylaxis Abilify [Aripiprazo* Other: See Comments Muscles couldn't get up Codeine Diarrhea Compazine [Prochlor* Myalgia Levaquin [Levofloxa* Diarrhea Omnicef [Cefdinir] Diarrhea Prednisone GI Upset Jbryvnq-Fbf-Ywr Red* Diarrhea Sulfa (Sulfonamide * Other: See Comments Leg pain Shellfish Containin* Swelling (home) [phone] (cell) Last Office Visit Date: 08/02/2022 Last [facility] Visit: Visit date not found Future Appointment: Visit date not found The patients preferred pharmacy has been captured for this encounter? yes Request is for script(s) to be escript to pharmacy. Husam Grant MA documented in this encounterRegency Hospital [facility]11-21-2022 Miscellaneous Notes* Telephone Encounter - Garima Drew MA - 08/07/2022 11:03 AM EST Patient called stating she had an appointment with Dr. Herrera and was told not to start the Carafatebecause it could cause constipation. Dr. Herrera informed patient if pain, nausea or vomiting returned she needed to go to [facility] for evaluation and treatment. Patient states she is sticking to a soft diet at this time and seems to be doing OK at this time. Garima Drew MA documented in this encounterRegency Hospital [facility]11-07-2022 Miscellaneous Notes* Telephone Encounter - Rosi Herbert RN - 07/24/2022 4:44 PM EST Spoke with patient regarding Dr. Rene's recommendations. She wrote instructions and expressed goodunderstanding. She will slowly advance diet. She has been advised to call with worsening sx's. Rosi Herbert RN * Telephone Encounter - Travon Rene DO - 07/24/2022 1:35 PM EST Perforation makes sense for emergency surgery and then anastomotic leak with abscess. She had about2 feet removed. 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 She needs to stay hydrated. Ok to continue liquids and start soft foods over the next week. She should be on Miralax at least daily to help with Bms as pain was likely constipation related. She likely has resulting motility issues combined with stricture. If symptoms recur, she may need [facility] evaluation. * Telephone Encounter - Rosi Herbert RN - 07/24/2022 12:48 PM EST Clinical update on patient status. Pt was in the office on 07/21/22 for abd pain with extensive hx of SBO and surgical resections. Pt was advised to do an Enema and bowel prep over two days. Pt states it took 12 hours for the enema to start working. She had a lot of pain and cramping. She has had multiple BM all weekend. She is finally passing clear colored stools. She has not had anything but broth and a ensure smoothie this weekend. She was pretty bed ridden over the weekend due to weakness. We was nauseated last evening, no vomiting. Since clean out she feels her left sided pain/pressure has improved. She has not tried to introducePO intake. Dr. Rene; can she start eating more solid foods. What is her follow up recommendations? She did have records faxed over and her CT from 07/13/22 is viewable now. Surgical report from 11/01/21 Path 75 cm segment of small bowel with area of transmural acute inflammation and hemorrhage c/w perforation. Clinically abdominal adhesions Benign mesenteric lymph nodes x4. Post op office visit 12/20/21: post op from small bowel obstruction has either intra-abdominal leak from her anastomosis or an abscess from the skin tract into the abdomen. Rosi Herbert RN documented in this encounterRegency Hospital [facility]11-04-2022 Instructions* Patient Instructions* Travon Rene DO - 07/21/2022 2:09 PM EDT Thank you for coming in today. Please have an x-ray performed before you leave today. Please do a fleets enema once you get home. I then want you to be on a liquid diet over the weekend. Perform a modified cleanout with MiraLAX mixed in Gatorade over the next 2 days. You should have several bowel movements with this. I will then follow-up with you on Sunday to see how your symptoms are doing. If you do not have bowel movements and pain worsens, please go to the emergency department. Constipation Protocol mix 238 gram bottle of Miralax with 64 ounces (2 quarts) Gatorade (no red or purple). Drink over 2 days. The Miralax/Gatorade works by flooding the intestinal track with fluid. The stool should be watery in consistency. Small flecks of debris are to be expected. Abdominal bloating and cramping may occur. As diarrhea develops these symptoms will gradually improve. If nausea develops, stop and resume preparation again in 1 hour. You may finish the prep at a slower rate than directed. Ultimately, your stool color should fluctuate between clear and yellow because of the continual production of digestive juices. If this has not been achieved, repeat the 238 grams of Miralax in 64 ounces of Gatorade. documented in this encounterRegency Hospital [facility]11-04-2022 History and physical note * Travon Rene DO - 07/21/2022 2:00 PM EDT Consultation requested by Dr. Kentrell Dhaliwal for an opinion regarding abd pain and SBO. My final recommendations will be communicated back to the requesting physician by way of shared medical record orfax. REASON FOR VISIT: Abdominal pain HPI: Kaitlyn Escobar is a 72 year old female who presents for evaluation of abdominal pain. She states symptoms initially started in October of this year. At that time she was admitted to the hospital with abdominal pain. She underwent emergent bowel surgery where she states 40% of her bowel was resected. She is not sure of the reason why this was performed. She states afterwards she had severe pain and difficulty tolerating p.o. She was on TPN for 1 month. She was then discharged but was soon readmitted after he was found to have an intra- abdominal abscess. She was again placed on TPN and was admitted for IV antibiotics. Since that time she has been unable to tolerate much oral intake. She is able to tolerate only small amounts of liquids. She has lost around 40 pounds because of this. She has persistent abdominal pain, mostly in the left lower quadrant. She describes this as sharp. It is occasionally quite severe. She has episodes of constipation with been severe crampy diarrhea. She was recently admitted to the hospital last weekend with worsening of pain. She was given morphine in the emergency department which only worsened her symptoms. She was given Zofran for nausea and vomiting symptoms. She had x-ray performed as well as CT with the results below. No surgical intervention was performed and she was discharged. Pain is continued along with nausea since that time. She has been unable to have much of a bowel movement. Past Clinical Work-Up: CT abd/Pel W/IV cont: 07/13/22: Organs: The liver is normal in size. Small right hepatic cyst is stable. Gallbladder has been removed. Mild prominence of bile ducts is consistent with prior cholecystectomy and patient age. The pancreas, spleen, adrenal glands, kidneys, and ureters show no sign of acute abnormality. GI/Bowel: The stomach and duodenum are unremarkable. The small intestine is remarkable for previous surgery with anastomosis seen in the midline of the lower abdomen. There is dilatation of a few loops of small intestine proximal to the anastomosis with air-fluid levels present. Distal small bowel is not dilated. Contrast does advance through the distal small intestine into the colon. There is diverticulosis of the colon without evidence of diverticulitis. The appendix is not seen. No free intraperitoneal air is present. Component Latest Ref Rng & Units 05/12/2022 07/07/2022 07/13/2022 07/16/2022 12:13 PM WBC 4.5 - 10.0 x10(3) 10.8 (H) 8.5 10.6 (H) 6.4 RBC 3.30 - 5.00 x10(6) 3.46 4.07 4.23 3.28 (L) Hemoglobin 12.0 - 16.0 g/dL 9.7 (L) 11.4 (L) 12.1 9.3 (L) Hematocrit 36.0 - 48.0 % 29.6 (L) 35.9 (L) 36.9 28.3 (L) MCV 80.0 - 99.0 fl 85.5 88.2 87.1 86.1 MCHC 33.0 - 36.0 g/dL 32.8 (L) 31.9 (L) 32.7 (L) 33.0 RDW 12.5 - 15.7 % 18.0 (H) 16.6 (H) 16.0 (H) 16.2 (H) MPV 7.5 - 9.5 fl 8.6 8.1 8.4 8.2 Platelet Count 150 - 450 X10(3) 299 332 371 251 ALLERGIES Allergen Reactions Latex Anaphylaxis Abilify [Aripiprazo* Other: See Comments Muscles couldn't get up Codeine Diarrhea Compazine [Prochlor* Myalgia Levaquin [Levofloxa* Diarrhea Omnicef [Cefdinir] Diarrhea Prednisone GI Upset Ofzmsmo-Ntt-Blm Red* Diarrhea Sulfa (Sulfonamide * Other: See Comments Leg pain Shellfish Containin* Swelling PAST MEDICAL HISTORY Diagnosis Date Anxiety and depression Diabetes (HCC) Drug-induced Parkinson's disease (HCC) GERD (gastroesophageal reflux disease) History of DVT (deep vein thrombosis) IBS (irritable bowel syndrome) Seizures (HCC) Tremor PAST SURGICAL HISTORY Procedure Laterality Date CHOLECYSTECTOMY HX COLON SURGERY HX HYSTERECTOMY HX ROTATOR CUFF REPAIR Left TONSILLECTOMY HX WRIST SURGERY HX Right FAMILY HISTORY Problem Relation Age of Onset Emphysema Mother Heart disease Father Social History Tobacco Use Smoking status: Never Smokeless tobacco: Never Vaping Use Vaping Use: Never used Substance Use Topics Alcohol use: Not Currently Drug use: Never Current Outpatient Medications Medication Sig ALPRAZolam (XANAX) 1 mg tablet TAKE 1 TABLET BY MOUTH EVERY 12 HOURS NEEDED zolpidem (AMBIEN) 10 mg TAKE 1 TABLET BY MOUTH EVERY DAY AT BEDTIME NEEDED FOR INSOMNIA ezetimibe (ZETIA) 10 mg tablet Take 1 tablet by mouth once daily. buPROPion XL (WELLBUTRIN XL) 150 mg 24 hr tablet Take 1 tablet by mouth once daily. SF 5000 PLUS 1.1 % dental cream levothyroxine (SYNTHROID) 50 mcg tablet Take 1 tablet by mouth once daily. docusate sodium (COLACE) 100 mg capsule Take 1 capsule by mouth twice daily. simethicone 250 mg cap Take 1 capsule by mouth twice daily. esomeprazole (NEXIUM) 20 mg capsule TAKE 1 CAPSULE BY MOUTH DAILY (6 AM) apixaban (ELIQUIS) 5 mg tab(s) Take 1 tablet by mouth twice daily. No current facility-administered medications for this visit. I have confirmed and edited as necessary, the PFSH obtained by others. REVIEW OF SYSTEMS CONSTITUTIONAL: No weight loss, malaise or fevers HEENT: Negative for frequent or significant headaches, No changes in hearing or vision, no nose bleeds or other nasal problems RESPIRATORY: Negative for cough, hemoptysis, wheezing, COPD, dyspnea or shortness of breath CARDIOVASCULAR: Negative for chest pain or palpitations GI: See HPI : No history of dysuria, frequency or incontinence, No difficulty urinating or hematuria MUSCULOSKELETAL: Denies joint pain or injury INTEGUMENTARY/SKIN: No rash or lesions HEMATOLOGY/LYMPHOLOGY: Negative for prolonged bleeding, bruising easily or swollen nodes ENDOCRINE: Negative for cold or heat intolerance, polyuria, polydipsia and goiter NEURO: No encephalopathy PSYCH: No recent changes in mood or depression Physical Exam: BP (!) 188/152 Pulse 84 Temp 36.4 C (97.5 F) (Oral) Ht 154.9 cm (5' 1) Wt 65.8 kg (145 lb) SpO2 100% BMI 27.40 kg/m Gen: AAOx3, NAD Head: normocephalic, atraumatic Skin: No jaundice Eyes: No scleral icterus Neck: supple, no mass appreciated Heart: Slightly irregular with regular rate, no murmurs Lungs: CTAB Abd: soft, moderate tenderness in the left lower quadrant on palpation with mild voluntary guarding, mildly distended, bowel sounds are positive, no mass appreciated Ext: no LE edema, Moves all ext Neuro: no asterixis Psych: mood and insight appropriate ASSESSMENT Problem List Items Addressed This Visit None Visit Diagnoses LLQ abdominal pain - Primary Relevant Orders XR ABDOMEN 2V ROUTINE SUPINE W UPRIGHT/DECUB/CTL Nausea and vomiting, unspecified vomiting type Partial small bowel obstruction (HCC) Relevant Orders XR ABDOMEN 2V ROUTINE SUPINE W UPRIGHT/DECUB/CTL PLAN 72-year-old female presents for evaluation of left lower quadrant abdominal pain, partial small bowel obstruction, and nausea and vomiting. 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 This is all secondary to her prior bowel surgery and this was e xplained to her in detail. She does not have a surgical abdomen at this point. I explained that shemay not have improvement with additional surgical intervention. I recommended trying conservative therapy to improve her quality of life as well as symptoms. We will start by reducing her stool burden. I encouraged her to try to do an enema followed by a bowel cleanse over the weekend. She will then require therapy to keep her bowels moving on a regular basis. I encouraged her to increase her liquid intake and have a mostly liquid diet with high-calorie such as boost or Ensure. If symptoms persist and she is moving her bowels on a regular basis, she may require neuromodulation. I will follow-up with her early next week. She was encouraged to call with any questions or concerns. I spent a total of 60 minutes on the date of the service which included preparing to see the patient, aapv-th-xyue patient care, completing clinical documentation, obtaining and/or reviewing separately obtained history, performing a medically appropriate examination, counseling and educating the pat ient/family/caregiver, and ordering medications, tests, or procedures. documented in this encounterRegency Hospital [facility]11-01-2022 History of Present illness Narrative* Garima Drew MA - 07/18/2022 2:34 PM EDT Spoke to patient regarding recent Hospital stay.. Patient states she has follow up with Dr. Thornton who is trying to make her an appointment with another provider [place]. TCM appointment made with Dr. Dhaliwal. Patient states she is doing better. Still fatigued. Garima Drew MA * Silvia Hicks RN - 07/18/2022 1:22 PM EDT 1st attempt to contact patient for an update. Left message for patient. Silvia Hicks RN 21:22 PM documented in this encounterRegency Hospital [facility]10-31-2022 Hospital course Narrative * Provider [facility], [place] - 07/17/2022 11:50 AM EDT [place] [id number] HEALTH INFORMATION MANAGEMENT DISCHARGE SUMMARY Patient: KAITLYN ESCOBAR ANUJA CARR M.D. [id number] 51 72 F Status: ADM IN [address] [place] [address]-A Date of Admission: 07/14/22 Discharge Summary Date of Discharge: 07/17/22 Discharge Diagnosis: 1. UTI (urinary tract infection) 2. SBO (small bowel obstruction) HPI: see H&P Hospital Course: Admitted with UTI and partial sbo treated conservatively and improved urine cx reviewed discussed with ID. no home going abx reqs per ID discussed DC plans with pt advised close outpt f/u with PCP/surgery expressed agreement and understanding with DC plans ok for home General Appearance Alert, Oriented X3, Cooperative, Appears Stated Age, No Acute Distress HEENT Atraumatic, Mucous membranes dry Lungs Clear to Auscultation, Normal Air Movement Neck Supple, No JVD Cardiovascular NSR, Normal S1, S2 Abdomen Soft, No Masses, hypoactive bowel sounds lower quadrants tender to palpation LLQ Extremities No Cyanosis, No Edema Skin No Rashes, No Breakdown, No Significant Lesion Neurological Normal Speech, Normal Tone, Intact/non-focal Psych/Mental Status Normal Affect, Normal Mood, Pleasant Time: 32 mins Orders/Scripts Active Scripts Continue taking these medications: Medication Dose/Rte/Freq Days Qty Refills Max Daily Dose BuPROPion* Hcl XL 150 MILLIGRAM ORAL None (Wellbutrin* XL) [address] ALPRAZolam* (Xanax*) 1 MG 1 MILLIGRAM ORAL None TAB TWICE DAILY Levothyroxine Sodium* 50 MICROGRAM ORAL None (Synthroid*) 50 MCG TABLET DAILY Apixaban* (Eliquis*) 5 MG TAB 5 MILLIGRAM ORAL None TWICE DAILY Zolpidem* Tartrate (Ambien*) 10 MILLIGRAM ORAL None 10 MG TAB AT BEDTIME Omeprazole* (Prilosec*) 20 MG 20 MILLIGRAM ORAL None CAPCR DAILY Dicyclomine* Hcl (Bentyl*) 10 MILLIGRAM ORAL None 10 MG CAP EVERY 6 HOURS NEEDED as needed for ABDOMINAL CRAMPS Ondansetron* ODT 4 MILLIGRAM ORAL 10 None (Zofran* Odt) 4 MG ODT EVERY 8 HOURS NEEDED as needed for NAUSEA AND/OR VOMITING Docusate Sodium (Dulcoease) 100 MILLIGRAM ORAL None 100 MG CAPSULE TWICE DAILY Ezetimibe* (Zetia*) 10 MG TAB 10 MILLIGRAM ORAL None DAILY Discharge Condition: Stable Disposition: Home <Electronically signed by ANUJA WALKER M.D.> 07/17/22 1155 ANUJA WALKER M.D. cc: << Signature on File>> Reported By: ANUJA WALKER M.D. Signed By: ANUJA WALKER M.D. Tests performed at: [address] [address] documented in this encounterRegency [facility]22 History of Present illness Narrative* Kentrell Pacheco MD - 07/17/2022 11:46 [place] [address] HEALTH INFORMATION MANAGEMENT PROGRESS NOTE Patient: KAITLYN ESCOBAR I KENTRELL PACHECO M.D. [id number] [age] F Status: ADM IN [facility] 2922-A DATE OF PROGRESS NOTE: 07/17/2022 TIME: 7:45 a.m. SUBJECTIVE: A 72-year-old white female came in with a partial small bowel obstruction, possible ileus with UTI.She actually passed some gas, had a little bowel movement today, and is tolerating clears. Still gets some crampy pain at times. OBJECTIVE: VITAL SIGNS: Stable. Afebrile. ABDOMEN: Soft, nontender. ASSESSMENT: A 72-year-old white female with urinary tract infection, being treated per Medicine. Second issue is this partial small bowel obstruction, which clinically is getting better. Plan is to increase to regular diet today. 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 Moseley a year or two ago at time of surgery. She understands that, seems to be doing better, understands this will be a lifelong issue that may flare up at times, and she is in agreement. If it would get badenough, [place] she seems to be improving. We will do regular diet. Report#: Dict ID [id number] / Int ID [id number] <Electronically signed by KENTRELL PACHECO M.D.> KENTRELL PACHECO M.D. cc: KENTRELL PACHECO M.D. << Signature on File>> Reported By: KENTRELL PACHECO M.D. Signed By: KENTRELL PACHECO M.D. Tests performed at: [address] [address] * Kentrell Pacheco MD - 07/17/2022 9:27 [place] [address] HEALTH INFORMATION MANAGEMENT PROGRESS NOTE Patient: KAITLYN ESCOBAR I KENTRELL PACHECO M.D. [id number] [age] F Status: ADM IN [address] [place], [place] [id number]-A DATE OF PROGRESS NOTE: 07/16/2022 LOCATION: [facility]. SUBJECTIVE: 72-year-old white female, less discomfort, nausea, actually passing gas, tolerating clear liquids. OBJECTIVE: VITAL SIGNS: Stable. Afebrile. KUB is pending. ABDOMEN: Soft, less tender, less distended. ASSESSMENT: 72-year-old white female, probable partial small-bowel obstruction versus ileus with the UTI is improving. PLAN: We will put her up to full liquids today if she tolerates that. Films look good. Regular food tomorrow and discharge when okay from the medical standpoint. I will check on her again tomorrow. Report#: Dict ID [id number] / Int ID [id number] <Electronically signed by KENTRELL PACHECO M.D.> KENTRELL PACHECO M.D. cc: KENTRELL PACHECO M.D. << Signature on File>> Reported By: KENTRELL PACHECO M.D. Signed By: KENTRELL PACHECO M.D. Tests performed at: [address] [address] * Provider [facility] - 07/16/2022 3:17 [place] [address] PROGRESS NOTES Patient: KAITLYN ESCOBAR ANUJA CARR M.D. [id number] [age] F Status: ADM IN [facility] 2922-A Report Date & Time: 07/16/22 1517 Subjective * Please Note: Seen. having some pain. tolerating diet. advanced by surgery All systems reviewed and all are negative except systems noted. Objective Focused Exam Performed General Appearance Alert, Oriented X3, Cooperative, Appears Stated Age, No Acute Distress HEENT Atraumatic, Mucous membranes dry Lungs Clear to Auscultation, Normal Air Movement Neck Supple, No JVD Cardiovascular NSR, Normal S1, S2 Abdomen Soft, No Masses, hypoactive bowel sounds lower quadrants tender to palpation LLQ Extremities No Cyanosis, No Edema Skin No Rashes, No Breakdown, No Significant Lesion Neurological Normal Speech, Normal Tone, Intact/non-focal Psych/Mental Status Normal Affect, Normal Mood, Pleasant Reviewed - Daily Labs/Vitals/Meds/Orders Hematology Range/Units 07/16 0458 Hematology WBC 4.5 - 10.0 x10(3) 6.4 RBC 3.30 - 5.00 x10(6) 3.28 L Hgb 12.0 - 16.0 g/dL 9.3 L Hct 36.0 - 48.0 % 28.3 L MCV 80.0 - 99.0 fl 86.1 MCH 28.5 - 32.9 pg 28.4 L MCHC 33.0 - 36.0 g/dL 33.0 RDW 12.5 - 15.7 % 16.2 H Plt Count 150 - 450 X10(3) 251 MPV 7.5 - 9.5 fl 8.2 Neut % (Auto) 45.0 - 73.0 % 45.1 Lymph % (Auto) 16.0 - 48.0 % 39.6 Maverick % (Auto) 4.3 - 11.2 % 9.0 Eos % (Auto) 0.5 - 4.9 % 5.3 H Baso % (Auto) 0.0 - 1.0 % 1.0 Neut # (Auto) 1.40 - 6.50 x10(3) 2.90 Lymph # (Auto) 1.00 - 3.50 x10(3) 2.50 Maverick # (Auto) 0.30 - 0.80 x10(3) 0.60 Eos # (Auto) 0.00 - 0.54 x10(3) 0.30 Baso # (Auto) 0.00 - 0.10 x10(3) 0.10 Chemistry Range/Units 07/16 9431 Chemistry Sodium 135 - 145 mmol/L 142 Potassium 3.5 - 5.0 mmol/L 3.5 Chloride 98 - 107 mmol/L 111 H Carbon Dioxide 22 - 29 mmol/L 20 L Anion Gap 15 - 22 mmol/L 14.5 L BUN 8 - 23 mg/dL 2 L Creatinine 0.50 - 0.90 mg/dL 0.78 Est GFR ( Amer) > 60 ml/min/1.73m2 Est GFR (Non-Af Amer) > 60 ml/Min/1.73m2 Glucose 82 - 115 mg/dL 105 Calcium 8.8 - 10.2 mg/dL 8.4 L Vital Signs Date Time Temp Pulse Resp B/P B/P Pulse O2 O2 Flow FiO2 Mean Ox Delivery Rate 07/16 830 97.9 81 20 140/65 99 07/16 830 97.9 81 20 140/65 99 07/16 08 97.9 81 20 140/65 99 07/15 2325 98.0 76 18 165/83 100 07/15 2133 98.2 68 17 137/62 100 07/15 1551 98.2 68 17 137/62 100 Intake & Output 07/16 0700 07/15 2300 07/15 1500 Intake Total 1583 220 Output Total Balance 1583 220 Current Medications Sig/Severiano Start time Last Medication Dose Route Stop Time Status Admin Zolpidem Tartrate 5 MG HS 07/14 2100 AC 07/15 PO 2116 Morphine Sulfate 4 MG Q3HPRN PRN 07/14 1100 AC 07/16 IV 0916 Ertapenem 1 GM Q24H 07/14 1000 I 07/16 Sodium Chloride 100 ML IV 0908 Alprazolam 1 MG BID 07/14 09 AC 07/16 PO 09 Apixaban 5 MG BID 07/14 0900 I 07/16 PO 09 Bupropion HCl 150 MG DAILY 07/14 09 AC 07/16 PO 09 Ezetimibe 10 MG QDAY 07/14 09 AC 07/16 PO 09 Pantoprazole Sodium 40 MG QDAY 07/14 09 AC 07/16 Sodium Chloride 10 ML IV 0904 Levothyroxine Sodium 0.05 MG DAILY@0630 07/14 0630 AC 07/16 PO 0607 Influenza Virus 240 MCG DD 07/14 0430 AC Vaccine Quadrival IM Dextrose/Sodium 1,000 ML .Q10H 07/14 0300 AC 07/16 Chloride IV 0902 Ondansetron HCl 4 MG Q4HPRN PRN 07/14 0300 AC 07/16 IV 0916 Sodium Chloride 20 ML PRN PRN 07/14 0300 AC IV Orders Procedure Date/time Status ABDOMEN (KUB)1 VIEW 07/17 0400 Active FULL LIQUID DIET 07/16 L Active Problems Problems Current Problems 1. Small bowel obstruction Assessment/Plan improving diet advanced surgery following serial imaging KUB reviewed. No obstruction noted. 2. UTI (urinary tract infection) Assessment/Plan Ertapenem per ID reqs appreciate input 3. DVT (deep venous thrombosis) Assessment/Plan continue Eliquis 4. Hypothyroidism Assessment/Plan continue Synthroid 5. Anxiety Assessment/Plan continue home meds 6. Yeast infection Assessment/Plan Miconazole topical PO meds now that able to tolerate PO Plan Plans Time Spent 35 mins <Electronically signed by ANUJA WALKER M.D.> 07/16/22 1519 ANUJA WALKER M.D. << Signature on File>> Reported By: ANUJA WALKER M.D. Signed By: ANUJA WALKER M.D. Tests performed at: [address] [address] * Kortney Anton MD - 07/15/2022 2:51 [place] [address] HEALTH INFORMATION MANAGEMENT PROGRESS NOTE Patient: KAITLYN ESCOBAR I KORTNEY ANTON M.D. [id number] [age] F Status: ADM IN [facility] 2922-A DATE OF PROGRESS NOTE: 07/15/2022 I am seeing Ms. Escobar for concern of possible urinary tract infection, currently on ertapenem 1 g IV daily. She is n.p.o., complaining of vague abdominal pain, nausea. She does urinary symptoms despite being on empiric ertapenem. No fevers. Her micro data, her blood cultures remain negative. Urine culture is pending. PHYSICAL EXAMINATION: VITAL SIGNS: On exam, her temperature is 98.1, blood pressure 108/56, heart rate 74 beats per minute. LUNGS: Clear. HEART: S1, S2. ABDOMEN: Soft. There is some generalized tenderness. LABORATORY DATA: Her white count is 10.6, hemoglobin 12.1, platelet count 371,000. IMPRESSION: Concern of urinary tract infection. Currently on ertapenem 1 g daily. We will follow her micro dataand clinical course. The patient currently is n.p.o. and has been seen by General Surgery on this admission. Report#: Dict ID [id number] / Int ID [id number] <Electronically signed by KORTNEY ANTON M.D.> KORTNEY ANTON M.D. cc: KORTNEY ANTON M.D. << Signature on File>> Reported By: KORTNEY ANTON M.D. Signed By: KORTNEY ANTON M.D. Tests performed at: [place] [address] * Kentrell Pacheco MD - 07/15/2022 12:48 [place] [address] HEALTH INFORMATION MANAGEMENT PROGRESS NOTE Patient: KAITLYN ESCOBAR I KENTRELL PACHECO M.D. [id number] [age] F Status: ADM IN [facility] 2922-A DATE OF PROGRESS NOTE: 07/15/2022 Tara doing the note. SUBJECTIVE: 72-year-old white female, did have a bowel movement yesterday, feeling a little better today. OBJECTIVE: VITAL SIGNS: Stable, afebrile. ABDOMEN: No acute peritoneal signs. KUB pending today. ASSESSMENT: 72-year-old white female, partial small bowel obstruction, maybe improving. PLAN: To slowly advance diet as tolerated. Report#: Dict ID [id number] / Int ID [id number] <Electronically signed by KENTRELL PACHECO M.D.> KENTRELL PACHECO M.D. cc: KENTRELL PACHECO M.D. << Signature on File>> Reported By: KENTRELL PACHECO M.D. Signed By: KENTRELL PACHECO M.D. Tests performed at: [place] [address] * Provider [facility] [place] - 07/15/2022 10:48 [place] [address] PROGRESS NOTES Patient: KAITLYN ESCOBAR ANUJA CARR M.D. [id number] [age] F Status: ADM IN [facility] 2922-A Report Date & Time: 07/15/22 1048 Subjective * Please Note: Seen. complaining of yeast infxn. All systems reviewed and all are negative except systems noted. Objective Focused Exam Performed General Appearance Alert, Oriented X3, Cooperative, Appears Stated Age, No Acute Distress HEENT Atraumatic, Mucous membranes dry Lungs Clear to Auscultation, Normal Air Movement Neck Supple, No JVD Cardiovascular NSR, Normal S1, S2 Abdomen Soft, No Masses, hypoactive bowel sounds lower quadrants tender to palpation LLQ Extremities No Cyanosis, No Edema Skin No Rashes, No Breakdown, No Significant Lesion Neurological Normal Speech, Normal Tone, Intact/non-focal Psych/Mental Status Normal Affect, Normal Mood, Pleasant Reviewed - Daily Labs/Vitals/Meds/Orders Chemistry Range/Units 07/15 0445 Chemistry Creatinine 0.50 - 0.90 mg/dL 0.98 H Est GFR ( Amer) > 60 ml/min/1.73m2 Est GFR (Non-Af Amer) 56 Vital Signs Date Time Temp Pulse Resp B/P B/P Pulse O2 O2 Flow FiO2 Mean Ox Delivery Rate 07/15 0802 98.1 74 17 108/56 99 07/15 0554 RA 07/15 0554 95 RA 07/148 98.0 72 20 146/74 100 07/14 1953 97.8 75 25 134/70 100 07/14 1531 97.9 77 20 119/82 99 Intake & Output 07/15 0700 07/14 2300 07/14 1500 Intake Total 2280 Output Total 200 Balance 2280 -200 Current Medications Sig/Severiano Start time Last Medication Dose Route Stop Time Status Admin Miconazole Nitrate See Dose NOW STA 07/15 1048 UNVr Insts (1) VAG 07/15 1049 Zolpidem Tartrate 5 MG HS 07/14 2100 AC 07/14 PO 2201 Morphine Sulfate 4 MG Q3HPRN PRN 07/14 1100 AC 07/15 IV 0916 Ertapenem 1 GM Q24H 07/14 1000 AC 07/15 Sodium Chloride 100 ML IV 1047 Alprazolam 1 MG BID 07/14 0900 AC 07/15 PO 0915 Apixaban 5 MG BID 07/14 0900 I 07/15 PO 09 Bupropion HCl 150 MG DAILY 07/14 09 AC 07/15 PO 0915 Ezetimibe 10 MG QDAY 07/14 0900 AC 07/15 PO 0915 Pantoprazole Sodium 40 MG QDAY 07/14 09 AC 07/15 Sodium Chloride 10 ML IV 0915 Levothyroxine Sodium 0.05 MG DAILY@0630 07/14 0630 AC 07/15 PO 0516 Influenza Virus 240 MCG DD 07/14 0430 AC Vaccine Quadrival IM Dextrose/Sodium 1,000 ML .Q10H 07/14 0300 AC 07/15 [place] 0913 Morphine Sulfate 2 MG Q3HPRN PRN 07/14 0300 DC 07/14 IV 0946 Ondansetron HCl 4 MG Q4HPRN PRN 07/14 0300 AC 07/15 IV 0915 Sodium Chloride 20 ML PRN PRN 07/14 0300 AC IV Dose Instructions: (1)Miconazole Nitrate: 1 APPLICATORFUL Orders Procedure Date/time Status CLEAR LIQUID DIET 07/15 L Active Activity-Ambulate w/frequency 07/15 1026 Active Problems Problems Current Problems 1. Small bowel obstruction Assessment/Plan partial NPO IVFs pain meds/antiemetics PRN surgery following serial imaging KUB reviewed. No obstruction noted. 2. UTI (urinary tract infection) Assessment/Plan Ertapenem per ID reqs appreciate input 3. DVT (deep venous thrombosis) Assessment/Plan continue Eliquis 4. Hypothyroidism Assessment/Plan continue Synthroid 5. Anxiety Assessment/Plan continue home meds 6. Yeast infection Assessment/Plan Miconazole topical Plan Plans Time Spent 40 mins <Electronically signed by ANUJA WALKER M.D.> 07/15/22 1053 ANUJA WALKER M.D. << Signature on File>> Reported By: ANUJA WALKER M.D. Signed By: ANUJA WALKER M.D. Tests performed at: [facility] [address] [place], [place] [address] documented in this encounterRegency [facility]10-31-2022 Hospital Discharge instructions* Instructions* [facility] 07/17/[facility]22 11:29 [place] [address] HEALTH INFORMATION MANAGEMENT IP DISCHARGE INSTRUCTIONS Patient: KAITLYN ESCOBAR I ANUJA WALKER M.D. [id number] [age] F Status: ADM IN [facility] 2922-A Date of Admission: 07/14/22 Date of Discharge: InPatient Discharge Discharge Diagnosis UTI yeast infxn partial SBO Condition on Discharge Stable Home Medications Scheduled Medications ALPRAZolam* (Xanax*) 1 MG TAB 1 MG PO BID, Ref 0 (Reported) Last Taken: 07/13/22 Apixaban* (Eliquis*) 5 MG TAB 5 MG PO BID, Ref 0 (Reported) Last Taken: 07/11/22 BuPROPion* Hcl XL (Wellbutrin* XL) [address] 150 MG PO DAILY, Ref 0 (Reported) Last Taken: 07/11/22 Docusate Sodium (Dulcoease) 100 MG CAPSULE 100 MG PO BID, Ref 0 (Reported) Ezetimibe* (Zetia*) 10 MG TAB 10 MG PO QDAY, Ref 0 (Reported) Levothyroxine Sodium* (Synthroid*) 50 MCG TABLET 50 MCG PO DAILY@0630, Ref 0 (Reported) Last Taken: 07/11/22 Omeprazole* (Prilosec*) 20 MG CAPCR 20 MG PO QDAY, Ref 0 (Reported) Last Taken: At an unknown date and time Zolpidem* Tartrate (Ambien*) 10 MG TAB 10 MG PO HS, Ref 0 (Reported) Last Taken: 07/12/22 Scheduled PRN Medications Dicyclomine* Hcl (Bentyl*) 10 MG CAP 10 MG PO Q6HPRN PRN ABDOMINAL CRAMPS, Ref 0 (Reported) Ondansetron* ODT (Zofran* Odt) 4 MG ODT 4 MG PO Q8HPRN PRN NAUSEA AND/OR VOMITING #10 TAB, Ref 0 Prescribed by MANUEL BARBOSA D.O. on 04/21/22 Last Taken: At an unknown date and time Discontinued Medications Amoxicillin/Clav 875-125 MG (Augmentin* 875-125 MG) 875 MG-125 MG TABLET 1 TAB PO BID #20 TAB, Ref 0 Discontinued reason: Not on Medication Amoxicillin/Clav 875-125 MG (Augmentin* 875-125 MG) 875 MG-125 MG TABLET 875 MG PO BID 7 Days #14 TAB, Ref 0 Take for 7 days. Discontinued reason: Physician DC'd Dicyclomine* Hcl (Bentyl*) 20 MG TAB 20 MG PO TID PRN GI SPASMS 10 Days #30 TAB, Ref 0 Discontinued reason: Not on Medication Hyoscyamine* Sulfate Sl (Levsin* Sl) 0.125 MG TAB 0.125 MG SL Q4HPRN PRN ABDOMINAL PAIN #30 TAB, Ref 0 Discontinued reason: Not on Medication Ondansetron* ODT (Zofran* Odt) 4 MG ODT 4 MG PO Q6HPRN PRN NAUSEA, Ref 0 (Reported) Discontinued reason: Not on Medication Phenazopyridine* Hcl (Pyridium*) 200 MG TAB 200 MG PO TID #6 TAB, Ref 0 Take for 2 days Discontinued reason: Not on Medication Sertraline Hcl* (Zoloft*) 100 MG TAB 100 MG PO QDAY, Ref 0 (Reported) Discontinued reason: Not on Medication Tizanidine Hcl* (Zanaflex*) 4 MG TAB 4 MG PO TID PRN MUSCLE SPASM, Ref 0 (Reported) Discontinued reason: Not on Medication Diet Regular Activity As Tolerated Follow up PCP Gen Surgery <Electronically signed by ANUJA WALKER M.D.> 07/17/22 1130 5.28 ANUJA WALKER M.D. IN A FEW DAYS YOU WILL RECEIVE OUR PATIENT SURVEY IN THE MAIL. PLEASE TAKE A FEW MINUTES TO COMPLETE THE SURVEY AND LET US KNOW HOW WELL WE MET YOU NEEDS. FEEL FREE TO ADD ANY COMMENTS OR SUGGESTIONS. THANK YOU FOR CHOOSING [facility]. << Signature on File>> Reported By: ANUJA WALKER M.D. Signed By: ANUJA WALKER M.D. Tests performed at: [address] [address] documented in this encounterRegency Hospital [facility]10-31-2022 Miscellaneous Notes* Telephone Encounter - Husam Grant MA - 07/17/2022 10:08 AM EDT Pharmacy faxed requesting the following refill Refill(s) Requested: Requested Prescriptions Pending Prescriptions Disp Refills ALPRAZolam (XANAX) 1 mg tablet [Pharmacy Med Name: alprazolam 1 mg tablet] 60 tablet 0 Sig: TAKE 1 TABLET BY MOUTH EVERY 12 HOURS NEEDED ALLERGIES Allergen Reactions Latex Anaphylaxis Abilify [Aripiprazo* Other: See Comments Muscles couldn't get up Codeine Diarrhea Compazine [Prochlor* Myalgia Levaquin [Levofloxa* Diarrhea Omnicef [Cefdinir] Diarrhea Prednisone GI Upset Wkzpyct-Cvg-Ecr Red* Diarrhea Sulfa (Sulfonamide * Other: See Comments Leg pain Shellfish Containin* Swelling (home) [phone] (cell) Last Office Visit Date: 05/30/2022 Last [facility] Health Visit: Visit date not found Future Appointment: Visit date not found The patients preferred pharmacy has been captured for this encounter? yes Request is for script(s) to be escript to pharmacy. Husam Grant MA documented in this encounterRegency Hospital [facility]10-28-2022 [place] [address] HEALTH INFORMATION MANAGEMENT CONSULTATION Patient: SHAWNKAITLYN ROBERT M M.D. [id number] [age] F Status: ADM IN [facility] 2922-A DATE OF CONSULTATION: 07/14/2022 LOCATION: [facility]. REQUESTING PHYSICIAN: Hospitalist. HISTORY OF PRESENT ILLNESS: 72-year-old white female, well known to our service, comes in with some abdominal pain, nausea, no flatus. Workup initially reveals what appears to be a recurrent small-bowel obstruction, which she has had many before. CAT scan of the abdomen suggested partial small bowel obstruction. No perforation or abscess. Blood work shows white count of 10, hemoglobin 12, platelets 371,000. Sodium 134, potassium 4.3, BUN and creatinine 8 and 0.99. Urinalysis is 40-50 whites and I believe she has a urine culture pending, esterase is large. She has past medical history of small-bowel obstruction in the past requiring surgery at which time had very complicated recovery, prolonged ileus, TPN, and essentially had a frozen abdomen on that operation, is not a great candidate for any further surgery and she understands that and we have had multiple conversations with her in the past on that. She gets her colonoscopies done in [place]. The last one was okay, but she also said that the doctor refused to do any more because of all her adhesions even to the colon. She has a high risk for perforation and he recommended just Cologuard. She feels a little better today. Had a bowel movement. Still a little nauseated. PAST MEDICAL HISTORY: DVTs on Eliquis for that, anxiety, hypothyroidism, Parkinson's with tremor. PAST SURGICAL HISTORY: Rotator cuff, wrist surgery, hysterectomy, laparotomy, bowel resection, cholecystectomy, and colonoscopy years ago. SOCIAL HISTORY: No alcohol, tobacco, or drug abuse. She has multiple drug allergies approximately 10 of them including statins, quinolones, sulfa, hydrocodone, oxycodone, shellfish, Depakote, codeine. HOME MEDICATIONS: Include: 1. Zofran as needed. 2. She is on Bentyl t.i.d. recently on antibiotics, not sure which she was on that for. 3. She is also on Levsin in addition to Bentyl. 4. She is on Pyridium 200 t.i.d. 5. Xanax 1 b.i.d. 6. Eliquis 5 mg b.i.d. 7. Prilosec 20 mg a day. 8. Zetia 10 mg a day. FAMILY HISTORY: Noncontributory. REVIEW OF SYSTEMS: CARDIAC, RESPIRATORY, NEURO, MUSCULOSKELETAL SKIN, HEAD, NECK, CARDIAC, RESPIRATORY, RIPRAP MAN, BREASTS: All negative GI: Positive just for the crampy pain, nausea, and decreased bowel function. She has the above blood work, CAT scan. PHYSICAL EXAMINATION: GENERAL: On exam, she said again she had a bowel movement today, feeling a little better. VITAL SIGNS: Blood pressure 130/80, respirations 15, pulse 70, temp 98, sats 99 on room air. Alert oriented x3. NEUROLOGICALLY: Intact motor sensory. LUNGS: Bilateral breath sounds. HEART: Not tachycardic. ABDOMEN: Soft with just minimal tenderness in the lower abdomen. GROIN: No adenopathy or hernia. EXTREMITIES: No pain, swelling, or masses. RECTAL: Deferred per patient. ASSESSMENT/PLAN: 72-year-old white female with at least a partial small bowel obstruction that may be getting better. She wants to hold off on the NG since she is feeling a little better. We will follow along, just daily films and see how she is doing. Again, I explained to her if it got to the point she needed surgery again, she would probably have to be referred back up to the [facility] [place] and she is in agreement to that. So, we will follow along with the hospitalist and check daily films. Report#: Dict ID [id number] / Int ID [id number] 07/16/22 0836 KENTRELL PACHECO M.D. cc: KENTRELL PACHECO M.D. << Signature on File>> Reported By: KENTRELL PACHECO M.D. Signed By: KENTRELL PACHECO M.D. Tests performed at: [address] [address] [facility] Consult note* Kentrell Pacheco MD - 07/14/2022 5:02 [place] [address] HEALTH INFORMATION MANAGEMENT CONSULTATION Patient: KAITLYN ESCOBAR I KENTRELL PACHECO M.D. [id number] [age] F Status: ADM IN [facility] 2922-A DATE OF CONSULTATION: 07/14/2022 LOCATION: [facility]. REQUESTING PHYSICIAN: Hospitalist. HISTORY OF PRESENT ILLNESS: 72-year-old white female, well known to our service, comes in with some abdominal pain, nausea, no flatus. Workup initially reveals what appears to be a recurrent small-bowel obstruction, which she has had many before. CAT scan of the abdomen suggested partial small bowel obstruction. No perforation or abscess. Blood work shows white count of 10, hemoglobin 12, platelets 371,000. Sodium 134, potassium 4.3, BUN and creatinine 8 and 0.99. Urinalysis is 40-50 whites and I believe she has a urine culture pending, esterase is large. She has past medical history of small-bowel obstruction in the past requiring surgery at which time had very complicated recovery, prolonged ileus, TPN, and essential ly had a frozen abdomen on that operation, is not a great candidate for any further surgery and sheunderstands that and we have had multiple conversations with her in the past on that. She gets her colonoscopies done in [place]. The last one was okay, but she also said that the doctor refused to doany more because of all her adhesions even to the colon. She has a high risk for perforation and herecommended just Cologuard. She feels a little better today. Had a bowel movement. Still a little nauseated. PAST MEDICAL HISTORY: DVTs on Eliquis for that, anxiety, hypothyroidism, Parkinson's with tremor. PAST SURGICAL HISTORY: Rotator cuff, wrist surgery, hysterectomy, laparotomy, bowel resection, cholecystectomy, and colonoscopy years ago. SOCIAL HISTORY: No alcohol, tobacco, or drug abuse. She has multiple drug allergies approximately 10 of them including statins, quinolones, sulfa, hydrocodone, oxycodone, shellfish, Depakote, codeine. HOME MEDICATIONS: Include: 1. Zofran as needed. 2. She is on Bentyl t.i.d. recently on antibiotics, not sure which she was on that for. 3. She is also on Levsin in addition to Bentyl. 4. She is on Pyridium 200 t.i.d. 5. Xanax 1 b.i.d. 6. Eliquis 5 mg b.i.d. 7. Prilosec 20 mg a day. 8. Zetia 10 mg a day. FAMILY HISTORY: Noncontributory. REVIEW OF SYSTEMS: CARDIAC, RESPIRATORY, NEURO, MUSCULOSKELETAL SKIN, HEAD, NECK, CARDIAC, RESPIRATORY, RIPRAP MAN, BREASTS: All negative GI: Positive just for the crampy pain, nausea, and decreased bowel function. She has the above blood work, CAT scan. PHYSICAL EXAMINATION: GENERAL: On exam, she said again she had a bowel movement today, feeling a little better. VITAL SIGNS: Blood pressure 130/80, respirations 15, pulse 70, temp 98, sats 99 on room air. Alert oriented x3. NEUROLOGICALLY: Intact motor sensory. LUNGS: Bilateral breath sounds. HEART: Not tachycardic. ABDOMEN: Soft with just minimal tenderness in the lower abdomen. GROIN: No adenopathy or hernia. EXTREMITIES: No pain, swelling, or masses. RECTAL: Deferred per patient. ASSESSMENT/PLAN: 72-year-old white female with at least a partial small bowel obstruction that may be getting better. She wants to hold off on the NG since she is feeling a little better. We will follow along, just daily films and see how she is doing. Again, I explained to her if it got to the point she needed surgery again, she would probably have to be referred back up to the [facility] [place] and she is in agreement to that. So, we will follow along with the hospitalist and check daily films. Report#: Dict ID [id number] / Int ID [id number] <Electronically signed by KENTRELL PACHECO M.D.> 07/16/22 0836 KENTRELL PACHECO M.D. cc: KENTRELL PACHECO M.D. << Signature on File>> Reported By: KENTRELL PACHECO M.D. Signed By: KENTRELL PACHECO M.D. Tests performed at: [address] [address] * Kortney Anton MD - 07/14/2022 1:00 [place] [address] HEALTH INFORMATION MANAGEMENT CONSULTATION Patient: KAITLYN ESCOBAR I KORTNEY ANTON M.D. [id number] 51 72 F Status: ADM IN [facility] 2922-A DATE OF CONSULTATION: 07/14/2022 ADDITIONAL REFERRING PHYSICIAN: Adrien Brown MD REASON FOR CONSULTATION: Evaluation and management of patient with urinary tract infection. 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 Her last surgery was in October of 2021. She recently apparently had a urinary tract infection, was given Augmentin as an outpatient last week and now presents with nausea, vomiting, and vague urological symptoms. She is very anxious. She has not had any documented fevers. She was placed on imipenem and based on the urine culture data from July 07. Patient denies any cardiopulmonary distress. No flank pain. Does complain of nausea, vomiting, and intermittentdiarrhea. PAST MEDICAL HISTORY: Significant for thromboembolic disease, small bowel obstruction requiring surgery and lysis of adhesions. ALLERGIES: She is allergic to sulfa. FAMILY HISTORY: Noncontributory. SOCIAL HISTORY: Unremarkable. REVIEW OF SYSTEMS: As stated in the history of present illness, others negative. CURRENT MEDICATION LIST: Reviewed. PHYSICAL EXAMINATION: GENERAL: She is alert, does not appear acutely ill. VITAL SIGNS: Temperature 98.9, blood pressure 135/85, heart rate 73 beats per minute. LUNGS: Clear. HEART: S1, S2. ABDOMEN: Soft. There is some generalized tenderness. LABORATORY DATA: White count is 10.6, hemoglobin 12.1, platelet count 371,000, blood sugar 111. Renal profile unremarkable. Microdata from yesterday pending including urine cultures. IMPRESSION: Concern of urinary tract infection with significant gastrointestinal distress. At this point, we will treat with ertapenem 1 g IV daily and follow her microdata and clinical course and continue supportive care. Report#: Dict ID [id number] / Int ID [id number] <Electronically signed by KORTNEY ANTON M.D.> 07/15/22 0914 KORTNEY ANTON M.D. cc: KORTNEY ANTON M.D. << Signature on File>> Reported By: KORTNEY ANTON M.D. Signed By: KORTNEY ANTON M.D. Tests performed at: [place] [address] documented in this encounterReg[facility]10-28-2022 [place] [address] HEALTH INFORMATION MANAGEMENT CONSULTATION Patient: KAILTYN ESCOBAR I KORTNEY ANTON M.D. [id number] 51 72 F Status: ADM IN [address] [place], [place] [id number] DATE OF CONSULTATION: 07/14/2022 ADDITIONAL REFERRING PHYSICIAN: Adrien Brown MD REASON FOR CONSULTATION: Evaluation and management of patient with urinary tract infection. 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 Her last surgery was in October of 2021. She recently apparently had a urinary tract infection, was given Augmentin as an outpatient last week and now presents with nausea, vomiting, and vague urological symptoms. She is very anxious. She has not had any documented fevers. She was placed on imipenem and based on the urine culture data from July 07. Patient denies any cardiopulmonary distress. No flank pain. Does complain of nausea, vomiting, and intermittent diarrhea. PAST MEDICAL HISTORY: Significant for thromboembolic disease, small bowel obstruction requiring surgery and lysis of adhesions. ALLERGIES: She is allergic to sulfa. FAMILY HISTORY: Noncontributory. SOCIAL HISTORY: Unremarkable. REVIEW OF SYSTEMS: As stated in the history of present illness, others negative. CURRENT MEDICATION LIST: Reviewed. PHYSICAL EXAMINATION: GENERAL: She is alert, does not appear acutely ill. VITAL SIGNS: Temperature 98.9, blood pressure 135/85, heart rate 73 beats per minute. LUNGS: Clear. HEART: S1, S2. ABDOMEN: Soft. There is some generalized tenderness. LABORATORY DATA: White count is 10.6, hemoglobin 12.1, platelet count 371,000, blood sugar 111. Renal profile unremarkable. Microdata from yesterday pending including urine cultures. IMPRESSION: Concern of urinary tract infection with significant gastrointestinal distress. At this point, we will treat with ertapenem 1 g IV daily and follow her microdata and clinical course and continue supportive care. Report#: Dict ID [id number] / Int ID [id number] 07/15/22 0914 KORTNEY ANTON M.D. cc: KORTNEY ANTON M.D. << Signature on File>> Reported By: KORTNEY ANTON M.D. Signed By: KORTNEY ANTON M.D. Tests performed at: [address] [address] [facility] History and physical note* Provider [facility] [place] - 07/14/2022 2:56 [place] [address] HISTORY AND PHYSICAL Patient: KAITLYN ESCOBAR I Attending: ADRIEN BROWN M.D. PCP: KENTRELL DHALIWAL II, M.D. [id number] 51 72 F Status: ADM IN [facility] 2922-A Report Date & Time: 07/14/22 0256 HPI Chief Complaint Abdominal pain. History Of Present Illness This is a 72 yo F with history of DVT on Eliquis and recurrent SBO s/p multiple abdominal surgeriesfor the same (most recently large colon resection in October at this facility) who presents with acute LLQ abdominal pain that started in the morning. States she has been having urinary symptoms andhas been on antibiotics for a UTI for the past week and has had associated nausea/vomiting and diarrhea with that, but the pain started today. She did have a small bowel movement in the ED and an episode of emesis, and currently is complaining of nausea. ROS is positive for lightheadedness but otherwise unremarkable. CT in the ED showed a partial SBO at the anastomosis of her small bowel. Labs were unremarkable and VSS. Pain has improved with morphine. FH: CAD. Patient Health History Medical Problems Abscess of intestine LOLITA (acute kidney injury) LOLITA (acute kidney injury) Anxiety Depression Diabetes Drug-induced Parkinson's disease DVT (deep vein thrombosis) in DVT (deep venous thrombosis) E. coli UTI (urinary tract infection) Generalized anxiety disorder Generalized weakness Hypocalcemia Hypothyroidism Hypothyroidism Lumbar radiculitis Parkinson's disease Polypharmacy Small bowel obstruction Syncope Tremor Urinary retention UTI (urinary tract infection) Surgical Problems H/O repair of left rotator cuff H/O right wrist surgery H/O: hysterectomy History of bowel resection History of cholecystectomy Social History Problems Does not drink alcohol Does not use illicit drugs Nonsmoker Allergies Coded Allergies: levofloxacin (From LEVAQUIN) (Severe, DIARRHEA/ DIAPHORESIS/VOMITING 07/13/22) Dlldbvb-CKV-YyU Reductase Inhibitor (Intermediate, LEG PAIN, DIFFICULTY AMBULATING 07/13/22) cefdinir (Mild, ITCHING (ALLERGY) 07/13/22) Sulfa (Sulfonamide Antibiotics) (BLOOD CLOT 07/13/22) acetaminophen (From PERCOCET) (Z NOT OBTAINED 07/13/22) codeine (UNKNOWN 07/13/22) divalproex sodium (From DEPAKOTE) (Z NOT OBTAINED 07/13/22) hydrocodone (UNKNOWN 07/13/22) latex (UNKNOWN 07/13/22) orphenadrine (UNKNOWN 07/13/22) oxycodone (From PERCOCET) (Z NOT OBTAINED 07/13/22) prochlorperazine (UNKNOWN 07/13/22) shellfish derived (Z NOT OBTAINED 07/13/22) Home Medications Active Scripts Ondansetron* ODT (Zofran* Odt) 4 MG PO Q8HPRN PRN NAUSEA AND/OR VOMITING Ondansetron* ODT (Zofran* Odt) 4 MG PO Q8HPRN PRN NAUSEA AND/OR VOMITING #10 TAB Prov: 04/21/22 Discontinued Scripts Dicyclomine* Hcl (Bentyl*) 20 MG PO TID PRN GI SPASMS 10 Days #30 TAB Prov: 04/21/22 DC: 07/14/22 0245 Not on Medication Amoxicillin/Clav 875-125 MG (Augmentin* 875-125 MG) 1 TAB PO BID Amoxicillin/Clav 875-125 MG (Augmentin* 875-125 MG) 1 TAB PO BID #20 TAB Prov: 05/04/22 DC: 07/14/22 0245 Not on Medication Hyoscyamine* Sulfate Sl (Levsin* Sl) 0.125 MG SL Q4HPRN PRN ABDOMINAL PAIN Hyoscyamine* Sulfate Sl (Levsin* Sl) 0.125 MG SL Q4HPRN PRN ABDOMINAL PAIN #30 TAB Prov: 05/04/22 DC: 07/14/22 0245 Not on Medication Phenazopyridine* Hcl (Pyridium*) 200 MG PO TID Phenazopyridine* Hcl (Pyridium*) 200 MG PO TID #6 TAB Prov: 05/04/22 DC: 07/14/22 0245 Not on Medication Amoxicillin/Clav 875-125 MG (Augmentin* 875-125 MG) 875 MG PO BID 7 Days #14 TAB Prov: 07/07/22 DC: 07/14/22 0245 Physician DC'd Reported Medications BuPROPion* Hcl XL (Wellbutrin* XL) 150 MG PO DAILY ALPRAZolam* (Xanax*) 1 MG PO BID Levothyroxine Sodium* (Synthroid*) 50 MCG PO DAILY@0630 Apixaban* (Eliquis*) 5 MG PO BID Zolpidem* Tartrate (Ambien*) 10 MG PO HS Omeprazole* (Prilosec*) 20 MG PO QDAY Dicyclomine* Hcl (Bentyl*) 10 MG PO Q6HPRN PRN ABDOMINAL CRAMPS Docusate Sodium (Dulcoease) 100 MG PO BID Ezetimibe* (Zetia*) 10 MG PO QDAY Discontinued Reported Medications Tizanidine Hcl* (Zanaflex*) 4 MG PO TID PRN MUSCLE SPASM Sertraline Hcl* (Zoloft*) 100 MG PO QDAY Ondansetron* ODT (Zofran* Odt) 4 MG PO Q6HPRN PRN NAUSEA Labs/Vitals/Meds Hematology Range/Units 10/27 2327 Hematology WBC 4.5 - 10.0 x10(3) 10.6 H RBC 3.30 - 5.00 x10(6) 4.23 Hgb 12.0 - 16.0 g/dL 12.1 Hct 36.0 - 48.0 % 36.9 MCV 80.0 - 99.0 fl 87.1 MCH 28.5 - 32.9 pg 28.5 MCHC 33.0 - 36.0 g/dL 32.7 L RDW 12.5 - 15.7 % 16.0 H Plt Count 150 - 450 X10(3) 371 MPV 7.5 - 9.5 fl 8.4 Neut % (Auto) 45.0 - 73.0 % 54.5 Lymph % (Auto) 16.0 - 48.0 % 36.4 Maverick % (Auto) 4.3 - 11.2 % 7.4 Eos % (Auto) 0.5 - 4.9 % 0.8 Baso % (Auto) 0.0 - 1.0 % 0.9 Neut # (Auto) 1.40 - 6.50 x10(3) 5.80 Lymph # (Auto) 1.00 - 3.50 x10(3) 3.90 H Maverick # (Auto) 0.30 - 0.80 x10(3) 0.80 Eos # (Auto) 0.00 - 0.54 x10(3) 0.10 Baso # (Auto) 0.00 - 0.10 x10(3) 0.10 Chemistry Range/Units 07/138 Chemistry Sodium 135 - 145 mmol/L 134 L Potassium 3.5 - 5.0 mmol/L 4.3 Chloride 98 - 107 mmol/L 100 Carbon Dioxide 22 - 29 mmol/L 22 Anion Gap 15 - 22 mmol/L 16.3 BUN 8 - 23 mg/dL 8 Creatinine 0.50 - 0.90 mg/dL 0.99 H Est GFR ( Amer) > 60 ml/min/1.73m2 Est GFR (Non-Af Amer) 55 Glucose 82 - 115 mg/dL 111 Calcium 8.8 - 10.2 mg/dL 9.4 Urine Tests 07/137 Urines Urine Color (YELLOW) YELLOW Urine Appearance (CLEAR) CLEAR Urine pH (5.0 - 8.0) 6.0 Ur Specific [place] (1.001 - 1.035) 1.010 Urine Protein (NEGATIVE MG/DL) NEGATIVE Urine Glucose (UA) (NEGATIVE MG/DL) NEGATIVE Urine Ketones (NEGATIVE MG/DL) NEGATIVE Urine Blood (NEGATIVE) NEGATIVE Urine Nitrite (NEGATIVE) NEGATIVE Urine Bilirubin (NEGATIVE) NEGATIVE Urine Urobilinogen (0.2 - 1.0 EU/DL) 0.2 Ur Leukocyte Esterase (NEGATIVE) LARGE Urine RBC (0 - 2) 1-3 Urine WBC (0 - 5) 40-50 Ur Squamous Epith Cells (NEGATIVE) MANY Ur Renal Epithelial Cell (NEGATIVE) FEW Urine Bacteria (NEGATIVE) 2+ Microbiology Date/Time Procedure - Status Source Growth 07/13 2327 Urine Culture - RECD URINE 07/13 2327 Blood Culture - RECD BLOOD 07/13 2327 Blood Culture Gram Stain - RECD BLOOD 07/13 2327 Blood Culture - RECD BLOOD 07/13 2327 Blood Culture Gram Stain - RECD BLOOD Vital Signs Date Time Temp Pulse Resp B/P B/P Pulse O2 O2 Flow FiO2 Mean Ox Delivery Rate 07/14 0247 77 18 159/84 98 07/14 0220 97.4 83 20 132/93 100 07/14 0020 97.1 97 18 100 07/14 0015 118 133/108 98 07/13 2204 97.6 94 18 158/96 100 07/13 2202 97.6 94 18 158/96 100 07/13 2159 97.6 94 18 158/96 100 Intake & Output 07/14 0700 07/13 2300 07/13 1500 Intake Total Output Total Balance Imaging: CT abd/pelvis: IMPRESSION: Evidence of partial obstruction in the small intestine at the site of a small bowel anastomosis in distal half of the small intestine. There is no perforation or abscess. Review of Systems All Other Systems Other systems reviewed and are negative. Objective Focused Exam Performed General Appearance Alert, Oriented X3, Cooperative, Appears Stated Age, No Acute Distress HEENT Atraumatic, Mucous membranes dry Lungs Clear to Auscultation, Normal Air Movement Neck Supple, No JVD Cardiovascular NSR, Normal S1, S2 Abdomen Soft, No Masses, hypoactive bowel sounds lower quadrants, tender to palpation LLQ Extremities No Cyanosis, No Edema Skin No Rashes, No Breakdown, No Significant Lesion Neurological Normal Speech, Normal Tone, Intact/non-focal Psych/Mental Status Normal Affect, Normal Mood, Pleasant Problems Prob/AP Current Problems 1. Small bowel obstruction Assessment/Plan partial, resolving NPO for now IVFs pain meds/antiemetics PRN surgery c/s 2. UTI (urinary tract infection) Assessment/Plan sensitivity resulted from culture 07/07, unfortunately patient is allergic to many antibiotics will continue carbapenem for now consult ID for further recs 3. DVT (deep venous thrombosis) Assessment/Plan continue Eliquis 4. Hypothyroidism Assessment/Plan continue Synthroid 5. Anxiety Assessment/Plan continue home meds Recent Orders My Orders (without Meds) Procedure Date/time Status CREATININE 07/15 0400 Active NOTHING BY MOUTH 07/14 B Active OXYGEN PROTOCOL 07/14 252 Active VS-Vitals per nursing protocol 07/14 252 Active Activity-Up as Tolerated 07/14 252 Active Notify Consulting physician 07/14 252 Active Notify/Chart - Atraumatic Fall 07/14 252 Active I&O-Intake & Output 07/14 252 Active zVTE Prophylaxis Education 07/14 252 Active zPT DIAGNOSIS 07/14 252 Active Code Status 07/14 252 Active Admit/Assign to.... 07/14 252 Active PHYSICIANS FOR CONSULT 07/14 252 Active VTE Prophylaxis Med Addressed 07/14 0249 Active Plan Plans Time Spent 45 min Additional Comments FULL CODE Eliquis Inpatient <Electronically signed by ADRIEN BROWN M.D.> 07/14/22 0519 ADRIEN BROWN M.D. cc: << Signature on File>> Reported By: ADRIEN BROWN M.D. Signed By: ADRIEN BROWN M.D. Tests performed at: [address] [address] documented in this encounterRegency [facility]10-24-2022 Miscellaneous Notes* Telephone Encounter - Kentrell Dhaliwal II, MD - 07/10/2022 6:33 PM EDT Stop Augmentin New prescriptions at the pharmacy * Telephone Encounter - Garima Drew MA - 07/10/2022 4:22 PM EDT Patient called stating she was released from ER on 07/07. She was treated for UTI and given 875mg of Augmentin. Patient is having difficulty with medication. Diarrhea, nausea and unable to eat. Patient is asking if Dr. Dhaliwal would please call her in something different? Please advise Garima Drew MA documented in this encounterRegency Hospital [facility]10-21-2022 Miscellaneous Notes* Telephone Encounter - Husam Grant MA - 07/07/2022 10:14 AM EDT Patient called in regards to being treated for recurrent UTI. Patient stated she has all the symptoms of kidney infection. Her lower back hurts, can barely eat, and is miserable. Patient was wanting to know if she should go to the hospital. Informed patient that was best choice for her so they can get her started on treatment right away. Husam Grant MA documented in this encounterRegency Hospital [facility]10-18-2022 Miscellaneous Notes* Telephone Encounter - Liliana Sainz - 07/04/2022 1:36 PM EDT Pharmacy faxed requesting the following refill Refill(s) Requested: Requested Prescriptions Pending Prescriptions Disp Refills zolpidem (AMBIEN) 10 mg [Pharmacy Med Name: zolpidem 10 mg tablet] 30 tablet 0 Sig: TAKE 1 TABLET BY MOUTH EVERY DAY AT BEDTIME NEEDED FOR INSOMNIA ALLERGIES Allergen Reactions Latex Anaphylaxis Abilify [Aripiprazo* Other: See Comments Muscles couldn't get up Codeine Diarrhea Compazine [Prochlor* Myalgia Levaquin [Levofloxa* Diarrhea Omnicef [Cefdinir] Diarrhea Prednisone GI Upset Acxxxtp-Usb-Ozj Red* Diarrhea Sulfa (Sulfonamide * Other: See Comments Leg pain Shellfish Containin* Swelling (home) [phone] (cell) Last Office Visit Date: 02/28/2022 Last [facility] Health Visit: Visit date not found Future Appointment: Visit date not found The patients preferred pharmacy has been captured for this encounter? yes Request is for script(s) to be escript to pharmacy. Liliana Sainz documented in this encounterRegency Hospital [facility] East10-05-2022 Miscellaneous Notes* Telephone Encounter - Kentrell Dhaliwal II, MD - 06/21/2022 1:46 PM EDT Prescription sent * Telephone Encounter - Husam Grant MA - 06/20/2022 2:11 PM EDT Patient called to see if Dr Dhaliwal could call in a prescription for her. Patient stated that she believes that she has a UTI again. Can Dr Dhaliwal send in a prescription? Please advise Husam Grant MA documented in this encounterRegency Hospital [facility]10-03-2022 Miscellaneous Notes* Telephone Encounter - Husam Grant MA - 06/19/2022 8:05 AM EDT Pharmacy faxed requesting the following refill Refill(s) Requested: Requested Prescriptions Pending Prescriptions Disp Refills ALPRAZolam (XANAX) 1 mg tablet [Pharmacy Med Name: alprazolam 1 mg tablet] 60 tablet 0 Sig: TAKE 1 TABLET BY MOUTH EVERY 12 HOURS NEEDED ALLERGIES Allergen Reactions Latex Anaphylaxis Abilify [Aripiprazo* Other: See Comments Muscles couldn't get up Codeine Diarrhea Compazine [Prochlor* Myalgia Levaquin [Levofloxa* Diarrhea Omnicef [Cefdinir] Diarrhea Prednisone GI Upset Wkxfltq-Yqy-Evx Red* Diarrhea Sulfa (Sulfonamide * Other: See Comments Leg pain Shellfish Containin* Swelling (home) [phone] (cell) Last Office Visit Date: 05/30/2022 Last [facility] Visit: Visit date not found Future Appointment: 07/20/2022 The patients preferred pharmacy has been captured for this encounter? yes Request is for script(s) to be escript to pharmacy. Husam Grant MA documented in this encounterRegency Hospital [facility]09-20-2022 Miscellaneous Notes* Telephone Encounter - Husam Grant MA - 06/06/2022 1:38 PM EDT Pharmacy faxed requesting the following refill Refill(s) Requested: Requested Prescriptions Pending Prescriptions Disp Refills zolpidem (AMBIEN) 10 mg [Pharmacy Med Name: zolpidem 10 mg tablet] 30 tablet 0 Sig: TAKE 1 TABLET BY MOUTH EVERY DAY AT BEDTIME NEEDED FOR INSOMNIA ALLERGIES Allergen Reactions Latex Anaphylaxis Abilify [Aripiprazo* Other: See Comments Muscles couldn't get up Codeine Diarrhea Compazine [Prochlor* Myalgia Levaquin [Levofloxa* Diarrhea Omnicef [Cefdinir] Diarrhea Prednisone GI Upset Tlqprfo-Puc-Ney Red* Diarrhea Sulfa (Sulfonamide * Other: See Comments Leg pain Shellfish Containin* Swelling (home) [phone] (cell) Last Office Visit Date: 02/28/2022 Last [facility] Visit: Visit date not found Future Appointment: Visit date not found The patients preferred pharmacy has been captured for this encounter? yes Request is for script(s) to be escript to pharmacy. Husam Grant MA documented in this encounterRegency Hospital [facility]09-20-2022 Miscellaneous Notes* Telephone Encounter - Garima Drew MA - 06/06/2022 1:38 PM EDT Patient called requesting the following refill Refill(s) Requested: Requested Prescriptions Pending Prescriptions Disp Refills ezetimibe (ZETIA) 10 mg tablet 30 tablet 3 Sig: Take 1 tablet by mouth once daily. ALLERGIES Allergen Reactions Latex Anaphylaxis Abilify [Aripiprazo* Other: See Comments Muscles couldn't get up Codeine Diarrhea Compazine [Prochlor* Myalgia Levaquin [Levofloxa* Diarrhea Omnicef [Cefdinir] Diarrhea Prednisone GI Upset Uxkugyu-Ulf-Fin Red* Diarrhea Sulfa (Sulfonamide * Other: See Comments Leg pain Shellfish Containin* Swelling (home) [phone] (cell) Last Office Visit Date: 05/30/2022 Last [facility] Health Visit: Visit date not found Future Appointment: 07/20/2022 The patients preferred pharmacy has been captured for this encounter? yes Request is for script(s) to be escript to pharmacy. Garima Drew MA refill documented in this encounterRegency Hospital [facility]09-13-2022 History of Present illness Narrative* Kentrell Dhaliwal II, MD - 05/30/2022 10:27 AM EDT Transitional Care Management TCM Eligibility Documentation The following information was gathered during the initial Patient Outreach Encounter. No flowsheet data found. Summary Discharged from: [facility] Admit Date: 05/10/2022 Admitted for: Syncope R/T Polypharmacy, Nausea and vomiting Husam Grant MA Provider Documentation Kaitlyn Escobar is a 71 year old female here today for a follow up to recent hospitalization. I have reviewed the patient's hospital course including diagnostic testing performed during this hospitalization, their discharge medications, and my assessment and plan with the patient and any family members present at today's visit. HPI: Patient is in today for follow-up of a hospital stay in which she was diagnosed with syncope. She had a work-up that was unremarkable and the need some medication changes and sent her home. She states she wanted to review her medications today and she does feel like she does continue to have a urinary tract infection. Review of Systems Constitutional: Positive for malaise/fatigue. Negative for chills, diaphoresis, fever and weight loss. HENT: Negative for congestion, ear discharge, ear pain, nosebleeds, sinus pain and sore throat. Eyes: Negative for blurred vision. Respiratory: Negative for cough, hemoptysis, sputum production, shortness of breath, wheezing and stridor. Cardiovascular: Negative for chest pain, palpitations, orthopnea, claudication, leg swelling and PND. Gastrointestinal: Negative for abdominal pain, blood in stool, constipation, diarrhea, heartburn, melena, nausea and vomiting. Genitourinary: Negative for dysuria, flank pain, frequency, hematuria and urgency. Musculoskeletal: Negative for falls, joint pain and myalgias. Skin: Negative for itching and rash. Neurological: Negative for dizziness, tingling, tremors, sensory change, speech change, focal weakness, seizures, loss of consciousness, weakness and headaches. Endo/Heme/Allergies: Negative for polydipsia. Does not bruise/bleed easily. Psychiatric/Behavioral: Negative for depression, hallucinations, memory loss, substance abuse and suicidal ideas. The patient is nervous/anxious. The patient does not have insomnia. Vitals BP 118/78 Pulse 80 Temp 97.2 Resp 12 Ht 5' 1 (1.55m) Wt 150 lb 6.4 oz (68.2kg) SpO2 99% BMI 28.43 kg/(m^2). Physical Exam Vitals and nursing note reviewed. Constitutional: General: She is not in acute distress. Appearance: Normal appearance. She is normal weight. She is not ill-appearing, toxic-appearing or diaphoretic. HENT: Head: Normocephalic and atraumatic. Right Ear: Tympanic membrane, ear canal and external ear normal. Left Ear: Tympanic membrane, ear canal and external ear normal. Nose: Nose normal. Mouth/Throat: Mouth: Mucous membranes are moist. Pharynx: Oropharynx is clear. No oropharyngeal exudate or posterior oropharyngeal erythema. Eyes: General: Lids are normal. Vision grossly intact. No scleral icterus. Right eye: No discharge. Left eye: No discharge. Conjunctiva/sclera: Conjunctivae normal. Pupils: Pupils are equal, round, and reactive to light. Neck: Thyroid: No thyroid mass, thyromegaly or thyroid tenderness. Vascular: No carotid bruit or JVD. Trachea: No tracheal deviation. Cardiovascular: Rate and Rhythm: Normal rate and regular rhythm. Pulses: Normal pulses. Heart sounds: Normal heart sounds. No murmur heard. No friction rub. No gallop. Pulmonary: Effort: Pulmonary effort is normal. No tachypnea, accessory muscle usage, respiratory distress or retractions. Breath sounds: Normal breath sounds. No stridor. No wheezing, rhonchi or rales. Abdominal: General: Abdomen is flat. Bowel sounds are normal. There is no distension. Palpations: Abdomen is soft. There is no mass. Tenderness: There is no abdominal tenderness. There is no guarding or rebound. Musculoskeletal: General: No swelling, tenderness, deformity or signs of injury. Normal range of motion. Right shoulder: Normal. Left shoulder: Normal. Right upper arm: Normal. Left upper arm: Normal. Right elbow: Normal. Left elbow: Normal. Right forearm: Normal. Left forearm: Normal. Right wrist: Normal. Left wrist: Normal. Right hand: Normal. Left hand: Normal. Cervical back: Normal range of motion and neck supple. No rigidity or tenderness. Thoracic back: Normal. Lumbar back: Normal. Right lower leg: Normal. No edema. Left lower leg: Normal. No edema. Comments: Musculoskeletal range of motion and strength without readily apparent significant change from previous exams. Neurovascular grossly within normal limits for this patient. Lymphadenopathy: Cervical: No cervical adenopathy. Skin: General: Skin is warm and dry. Capillary Refill: Capillary refill takes less than 2 seconds. Coloration: Skin is not jaundiced. Findings: No erythema or rash. Neurological: General: No focal deficit present. Mental Status: She is alert and oriented to person, place, and time. Mental status is at baseline. Cranial Nerves: No cranial nerve deficit. Sensory: No sensory deficit. Motor: No weakness. Coordination: Coordination normal. Gait: Gait is intact. Gait normal. Psychiatric: Attention and Perception: Attention and perception normal. Mood and Affect: Mood and affect normal. Speech: Speech normal. Behavior: Behavior normal. Behavior is cooperative. Thought Content: Thought content normal. Cognition and Memory: Cognition and memory normal. Judgment: Judgment normal. ASSESSMENT/PLAN: 1. Syncope, unspecified syncope type - ICD9: 780.2, ICD10: R55 (primary diagnosis) The patient was admitted with possible polypharmacy but from history it seems like it might be moreof a vasovagal syncope. She has had no 2. Anxiety and depression - ICD9: 300.00, 311, ICD10: F41.9, F32.A She would like to restart her Zoloft. We will plan on her following up in 1 month or sooner if needed 3. Irritable bowel syndrome with both constipation and diarrhea - ICD9: 564.1, ICD10: K58.2 Clinically stable. Continue same medication and treatment. Follow up in 3 to 6 months or sooner if needed. 4. Gastroesophageal reflux disease, unspecified whether esophagitis present - ICD9: 530.81, ICD10: K21.9 Clinically stable. Continue same medication and treatment. Follow up in 3 to 6 months or sooner if needed. 5. Hypothyroidism, acquired - ICD9: 244.9, ICD10: E03.9 - Instructed patient on importance of taking on an empty stomach either first thing in the morning or at bedtime. - check TSH in 3 months and in 6 months - continue current dose of Synthroid - Follow up in 6 months Weight decreasing - Continue current medications 6. SBO (small bowel obstruction) (HCC) - ICD9: 560.9, ICD10: K56.609 Resolved. Follow-up as needed for this issue. 7. Recurrent UTI (urinary tract infection) - ICD9: 599.0, ICD10: N39.0 recurrent - Begin treatment with Macrobid 100 mg BID for 10 days Kentrell Dhaliwal II, MD May 30, 2022 10:27 AM documented in this encounterRegency [facility]09-02-2022 Miscellaneous Notes* Telephone Encounter - Husam Grant MA - 05/19/2022 12:50 PM EDT Called patient and informed her that Dr Dhaliwal said no on her starting the medication again. Patientverbally acknowledged the she will not start the Augmentin again and that she will see us on 05/24/2022. Husam Grant MA * Telephone Encounter - Kentrell Dhaliwal II, MD - 05/19/2022 12:10 PM EDT No * Telephone Encounter - Garima Drew MA - 05/18/2022 12:19 PM EDT Patient called stating she was recently taking augmentin however, when she went into the Hospital they took her off of the medication. Patient is asking if she should be back on medication again? Please advise Garima Drew MA documented in this encounterRegency Hospital [facility]09-01-2022 Miscellaneous Notes* Telephone Encounter - Garima Drew MA - 05/18/2022 12:21 PM EDT Patient called requesting the following refill Refill(s) Requested: Requested Prescriptions Pending Prescriptions Disp Refills ALPRAZolam (XANAX) 1 mg tablet 60 tablet 0 Sig: Take 1 tablet by mouth every 12 hours as needed for up to 30 days. ALLERGIES Allergen Reactions Latex Anaphylaxis Abilify [Aripiprazo* Other: See Comments Muscles couldn't get up Codeine Diarrhea Compazine [Prochlor* Myalgia Levaquin [Levofloxa* Diarrhea Omnicef [Cefdinir] Diarrhea Prednisone GI Upset Pcdsufd-Nos-Imf Red* Diarrhea Sulfa (Sulfonamide * Other: See Comments Leg pain Shellfish Containin* Swelling (home) [phone] (cell) Last Office Visit Date: 04/19/2022 Last [facility] Health Visit: Visit date not found Future Appointment: 05/24/2022 The patients preferred pharmacy has been captured for this encounter? yes Request is for script(s) to be escript to pharmacy. Garima Drew MA refill documented in this encounterRegency Hospital [facility]08-24-2022 [place] [address] HEALTH INFORMATION MANAGEMENT CONSULTATION Patient: KAITLYN ESCOBARKENTRELL M.D. [id number] [age] F Status: ADM Tamara [facility]CENTRAL 2054-A DATE OF CONSULTATION: 05/09/2022 REQUESTING PHYSICIAN: Hospitalist [facility] HISTORY OF PRESENT ILLNESS: A 71-year-old white female comes in with 2 syncopal episodes that is being worked up right now. She is moving her bowels, passing gas. No nausea or vomiting, just really complaining of this chronic abdominal pain, which she has had for a long time that we are very aware of that. Her blood work shows white count of 9, hemoglobin 11, platelets 372. Sodium 142, potassium 4.1, BUN and creatinine are 4 and 1.26. Liver panel is normal for the most part. Lipase is normal. Plain films of the abdomen show a nonobstructive pattern. We were asked to see the patient just for this really chronic abdominal pain and cramping. She had a laparotomy, lysis of adhesions for bowel obstruction in the last 6 months, very extensive lysis of adhesion. She has really difficult abdomen, almost a frozen abdomen. She had a prolonged recovery from that surgery, required TPN for a while, but eventually did recover. She has healed up well from her incision. Again, is passing gas, not nauseated, just the chronic abdominal pain, which is nothing new for her. She had a colonoscopy 5 to 10 years ago in [place], very difficult to get through. They recommended no further colonoscopies because of her high risk of perforation, so this is more of a chronic issue for her. She in addition to the bowel obstructions and chronic abdominal pain, she has a past medical history of depression, anxiety, hypothyroid, UTIs in the past. PAST SURGICAL HISTORY: Hysterectomy, laparotomy, bowel resection, lysis of adhesions, cholecystectomy, a rotator cuff surgery. ALLERGIES: To a slew of medicines including sulfa, quinolones, codeine, latex, oxycodone, shellfish. MEDICATIONS: Her home medications include: 1. Bentyl 20 mg t.i.d. 2. Wellbutrin 150 a day. 3. Synthroid 50 mcg a day. 4. Eliquis 5 mg twice a day. I believe she has a history of DVTs. 5. Prilosec 20 a day. 6. Zofran as needed. FAMILY HISTORY: Noncontributory. SOCIAL HISTORY: Negative for any alcohol, tobacco, or drug abuse at this time. REVIEW OF SYSTEMS: CONSTITUTIONAL: Negative. NEUROLOGIC: Positive for couple of syncopal episodes. CARDIAC: Negative. RESPIRATORY: Negative. BREAST: Negative. RIPRAP MAN: Negative. UROLOGIC: Negative. GI: Positive only for the chronic pain, which is not new. DIAGNOSTIC DATA: She has the above blood work and normal abdominal x-ray. PHYSICAL EXAMINATION: GENERAL: She is in no acute distress. Alert and oriented x3. VITAL SIGNS: Blood pressure 150/80, respirations 15, pulse 70, temperature 98, sats 95 on room air. NEUROLOGICAL: Intact motor, sensory. LUNGS: Bilateral breath sounds. EXTREMITIES: No acute deformities. ABDOMEN: Soft. Well-healed incision. Really no significant tenderness or distention. GROIN: No obvious hernias. RECTAL: Deferred per patient. ASSESSMENT AND PLAN: 71-year-old white female with chronic abdominal pain but with really no evidence of obstruction clinically or on objective review. I would just observe her. Diet as tolerated. I will be available as needed, but this is a chronic issue with her belly pain, it is really nothing surgical to do at this point, and this surgical eval of Kaitlyn Escobar will be available as needed. Report#: Dict ID [id number] / Int ID [id number] 05/10/22 1055 KENTRELL PACHECO M.D. cc: KENTRELL PACHECO M.D. << Signature on File>> Reported By: KENTRELL PACHECO M.D. Signed By: KENTRELL PACHECO M.D. Tests performed at: [place] [id number] [facility]2022 [place] [address] HEALTH INFORMATION MANAGEMENT CONSULTATION Patient: KAITLYN ESCOBAR I DALILA GRAY C.N.P. [id number] [age] F Status: ADM IN [facility]TRAL 2054- DATE OF CONSULTATION: 05/09/2022 TIME: 0900. REASON FOR CONSULTATION: Syncope. HISTORY OF PRESENT ILLNESS: This is a 71-year-old female with no cardiac history who presented to the emergency room after a fall injury yesterday. The patient states on Sunday evening, she was found on the ground by her sister. She states she must have been sleeping or possibly have passed out at that time as she does not remember falling on to the ground. She states that her sister was able to wake her up. However, on Sunday, she was getting a shower and she fell getting out of the bathtub onto her tailbone and since then she has been having some lower abdominal discomfort. Per ER report, the patient possibly had one yesterday again when she was in the bathtub. However, the patient states that she denied actual syncope. She states over the last 3 to 4 weeks, she has been not feeling well. She has been having some dyspnea all night. She has been having some dizziness and easily fatigued. She states she has been having some medication adjustments with her PCP, Dr. Dhaliwal. Recently, her Zoloft was increased about 4 weeks ago from 50 mg daily to 100 mg daily and since then has not been feeling right. She denies any actual chest pain, palpitations, or shortness of breath. She also states in October she had a bowel resection that required a lengthy hospitalization and some complications postoperatively and has been living with her sister since. For the syncope, we were asked to consult on the patient for further evaluation. PAST MEDICAL HISTORY: Tremors, anxiety, history of small bowel resection, hypothyroidism, history of DVT. PAST SURGICAL HISTORY: Bowel resection in October 2021, several bowel surgeries previously, hysterectomy, cholecystectomy, left rotator cuff. FAMILY HISTORY: States that her father from an [place] at 72. Her mom had emphysema. SOCIAL HISTORY: Socially, she has never been a smoker. No alcohol or recreational drug use. Lives at home with her sister and irhinul-ls-ufm. REVIEW OF SYSTEMS: As per HPI. The patient is also having some lower tail bone pain and abdominal pain. MEDICATIONS AT HOME: Per med rec: 1. Pyridium. 2. Augmentin. 3. Levsin. 4. Bentyl. 5. Zofran. 6. Zoloft. 7. Prilosec. 8. Wellbutrin. 9. Xanax. 10. Levothyroxine. 11. Eliquis 5 mg twice a day. 12. Zanaflex. 13. Ambien. ALLERGIES: To Levaquin, statins, cefdinir, sulfa, Percocet, codeine, Depakote, hydrocodone, latex, orphenadrine, oxycodone, prochlorperazine, shellfish. PHYSICAL EXAMINATION: GENERAL: She is alert, oriented x4. No obvious distress. HEENT: Atraumatic. EOMs intact. Mucous membranes pink and moist. NECK: Supple without JVD. LUNGS: Clear to auscultation bilaterally. CARDIOVASCULAR: S1, S2. Regular rate and rhythm. No obvious murmurs, rubs, or gallops appreciated. ABDOMEN: Soft, tender. EXTREMITIES: With no cyanosis or edema. SKIN: [place], warm, dry. LABORATORY DATA: WBC 17.6 which is up from 9.0, hemoglobin 10.2, hematocrit 30.8, and platelets 308. Sodium 142, potassium 4.1, BUN 4, creatinine 1.26, magnesium 1.9. Lipase 16. COVID negative. IMAGIN. Abdominal x-ray shows nonobstructive bowel gas pattern. 2. Hip x-ray showed degenerative changes. 3. CT of the head showed no intracranial pathology. 4. EKG shows artifact, but normal sinus rhythm. ASSESSMENT AND PLAN: 1. Syncope. The patient states that all of her symptoms including dizziness have started since her Zoloft has been increased from 50 mg to 100 mg daily. The patient also states she has not been eating and drinking in the past as she should. She has been started on IV fluids. The syncope could be secondary to this. The patient is also on quite a few medications at home including Xanax and Ambien that can cause dizziness in the elderly. We will check an echocardiogram. EKG without obvious ischemia. The patient is not having any chest pains or concerning ACS symptoms. We will also check orthostatic vital signs and replete the patient's magnesium. Carotid massage negative. 2. Abdominal discomfort. 3. Anxiety. 4. Leukocytosis. The patient's initial WBC was 9.0, was repeated this morning at 17.6. Defer to Internal Medicine. 5. Anemia. 6. History of deep venous thrombosis. On eliquis. Thank you for the consultation and allowing us to participate in the patient's care. This is a shared visit with Dr. Reyes. Please see a second entry for any further comments warranted. Preliminarily, the patient's echocardiogram did show some mild-moderate pulmonary hypertension. The patient is already anticoagulated with Eliquis 5 mg twice a day. However, we will check a D-dimer and rule out PE as (more content not included)...[facility]08[facility] History of Present illness Narrative* MAKSIM Valenzuela - 05/09/2022 10:53 AM EDT GLENNY scheduled for 05/24/22 Zoloft, Ambien, Zanaflex, and Levbid discontinued. documented in this encounterRegency Hospital [facility]08-19-2022 Miscellaneous Notes* Telephone Encounter - Kentrell Dhaliwal II, MD - 05/05/2022 5:11 PM EDT resent * Telephone Encounter - Garima Drew MA - 05/05/2022 3:50 PM EDT Patient called stating the RX for Ambien that DR. Dhaliwal sent to [facility] [place] was not received by the Pharmacy. Could Dr. Dhaliwal please resend? Garima Drew MA documented in this encounterRegency Hospital [facility]08-19-2022 Miscellaneous Notes* Telephone Encounter - Husam Grant MA - 05/05/2022 3:53 PM EDT [employer] fax in response to patient's Tizanidine HCL 4mg tablet. [employer] states that no prior authorization is needed for the amount listed (4 mg tablet Tizanidine HCL). Husam Grant MA documented in this encounterCleveland [id number] Miscellaneous Notes* Telephone Encounter - Garima Drew MA - 05/05/2022 7:53 AM EDT Pharmacy faxed requesting the following refill Refill(s) Requested: Requested Prescriptions Pending Prescriptions Disp Refills zolpidem (AMBIEN) 10 mg [Pharmacy Med Name: zolpidem 10 mg tablet] 30 tablet 0 Sig: TAKE 1 TABLET BY MOUTH EVERY DAY AT BEDTIME NEEDED FOR INSOMNIA ALLERGIES Allergen Reactions Latex Anaphylaxis Abilify [Aripiprazo* Other: See Comments Muscles couldn't get up Codeine Diarrhea Compazine [Prochlor* Myalgia Levaquin [Levofloxa* Diarrhea Omnicef [Cefdinir] Diarrhea Prednisone GI Upset Mwvjykz-Tvk-Lkj Red* Diarrhea Sulfa (Sulfonamide * Other: See Comments Leg pain Shellfish Containin* Swelling (home) [phone] (cell) Last Office Visit Date: 02/28/2022 Last [facility] Health Visit: Visit date not found Future Appointment: Visit date not found The patients preferred pharmacy has been captured for this encounter? yes Request is for script(s) to be escript to pharmacy. Garima Drew MA refill documented in this encounterRegency Hospital [facility]08-18-2022 Miscellaneous Notes* Telephone Encounter - Gladys Mauricio RN - 05/04/2022 10:04 AM EDT Called to complete ER follow up but patient did not answer and VM was left for return call. Patienthad an ER visit at [facility] on 05/03/22 for UTI. Gladys Mauricio RN documented in this encounterRegency Hospital [facility]08-18-2022 Miscellaneous Notes* Telephone Encounter - Husam Grant MA - 05/04/2022 9:55 AM EDT Pharmacy faxed requesting the following refill Refill(s) Requested: Requested Prescriptions Pending Prescriptions Disp Refills tiZANidine HCl (ZANAFLEX) 4 mg capsule [Pharmacy Med Name: tizanidine 4 mg capsule] 30 capsule 0 Sig: TAKE 1 CAPSULE BY MOUTH THREE TIMES DAILY NEEDED ALLERGIES Allergen Reactions Latex Anaphylaxis Abilify [Aripiprazo* Other: See Comments Muscles couldn't get up Codeine Diarrhea Compazine [Prochlor* Myalgia Levaquin [Levofloxa* Diarrhea Omnicef [Cefdinir] Diarrhea Prednisone GI Upset Edchgkn-Evo-Zqa Red* Diarrhea Sulfa (Sulfonamide * Other: See Comments Leg pain Shellfish Containin* Swelling (home) [phone] (cell) Last Office Visit Date: 04/19/2022 Last [facility] Health Visit: Visit date not found Future Appointment: 07/20/2022 The patients preferred pharmacy has been captured for this encounter? yes Request is for script(s) to be escript to pharmacy. Husam Grant MA documented in this encounterRegency Hospital [facility]08-17-2022 Miscellaneous Notes* Telephone Encounter - Kentrell Dhaliwal II, MD - 05/03/2022 8:13 PM EDT Done * Telephone Encounter - Husam Grant MA - 05/02/2022 9:11 AM EDT Patient called to say she is good and that she check pharmacy for medication Dr Dhaliwal was going to call in for her cholesterol. Patient states that a weeks worth of medication would be great just to see how she can handle it. Patient states she would like prescription sent to [facility] in [place]. Prescription is either Zetia or Colestid. Husam Grant MA documented in this encounterRegency Hospital [facility]08-08-2022 History of Present illness Narrative* Jasmin Schmidt RN - 04/24/2022 2:16 PM EDT Patient can be scheduled for ER Follow up if calls back to . [facility] FOLLOW UP INITIAL CONTACT Provider Action/FYI: SUMMARY: -Patient discharged from [facility] ED on 04/21/2022. -Follow up appointment . -Medication review done . -Presented with: Abdominal Pain CONCERNS: HX of obstructions NEW MEDICATIONS: None MEDS HELD/DISCONTINUED: None BRIEF ED COURSE: IMPRESSION: 1. Abdominal pain. 2. Diarrhea. No sign of bowel obstruction today. No recent antibiotic use and she said the stools were not liquidy this morning, so she seems like they are improving, so I did not get a stool culture. Jasmin Schmidt RN documented in this encounterRegency Hospital [facility]08-05-2022 Emergency department Note * Manuel Morales Current - 04/21/2022 2:15 [place] [address] HEALTH INFORMATION MANAGEMENT EMERGENCY DEPARTMENT REPORT Patient: KAITLYN ESCOBAR I FAMILIA,MANUEL Colmenares D.O. [id number] [age] F Status: [facility] ER ED Date of Service: 04/21/22 CHIEF COMPLAINT: Abdominal pain. HISTORY OF CHIEF COMPLAINT: This is a 71-year-old female who was having abdominal pain. She had nausea, vomiting, and diarrhea actually. Usually she gets bowel obstructions pretty regular. She said that she did not throw up this morning. She threw up yesterday. She said that Sunday she was having a lot of pain and then hada large diarrhea. She said the pain is a little better this morning, but still hurting her. She says that she is worried she has another bowel obstruction. She states that she has had no fevers or chills with this. No dysuria or frequency. The patient states that she has actually had loose stools instead of hard stools , but did pass a bowel movement this morning. PAST MEDICAL HISTORY: Denied. SURGICAL HISTORY: Hysterectomy, cholecystectomy, a bowel resection. SOCIAL HISTORY: She is a nonsmoker, nondrinker. Denies illegal drug use. REVIEW OF SYSTEMS: She denies headaches, blurred vision, sore throat, or neck pain. She denies any chest pain or palpitations, short of breath or cough. Having this abdominal pain, kind of just diffuse crampy pain. Shehas had nausea, vomiting, but not today. She has had diarrhea today. She had diarrhea yesterday. Nobloody stools or black stools. 10-point review of systems otherwise negative. PHYSICAL EXAMINATION: GENERAL: The patient is awake, alert, oriented x3, no acute distress. Appears well developed, well nourished. HEENT: Trachea midline. HEART: Regular rate and rhythm. LUNGS: Clear bilaterally. ABDOMEN: Soft, but diffusely tender without rebound, guarding, or peritoneal signs. EXTREMITIES: Without edema or cyanosis. SKIN: Without rashes, negative Homans. NEURO: No focal deficits. Strength 5/5. LABORATORY WORK: White count is 8.1 with hemoglobin 11.2, platelet count 320,000. Chemistry; sodium is 140, potassium 3.9, chloride of 105, and bicarb of 24 with a BUN of 8, creatinine of 1.33. Urine is negative for infection. Patient's COVID is negative. The patient's CT abdomen and pelvis showed no acute process today. So at this time, I went back and talked to her. She is feeling better after little medicines, fluids, and pain meds. She has negative workup here. I told her there was not really any reason we need to admit her to the hospital. I think she can probably go home. The patient is going to be given someBentyl for cramping at home, some Zofran for nausea. I did student counselor her if she has worsening symptoms, increasing pain, to please return back to the emergency room. We will have her follow up as an outpatient with Dr. Moseley and discharged in stable condition. IMPRESSION: 1. Abdominal pain. 2. Diarrhea. No sign of bowel obstruction today. No recent antibiotic use and she said the stools were not liquidy this morning, so she seems like they are improving, so I did not get a stool culture. Report#: Dict ID [id number] / Int ID [id number] <Electronically signed by MANUEL BARBOSA D.O.> 04/21/22 1705 MANUEL BARBOSA D.O. cc: MANUEL BARBOSA D.O.; KENTRELL DHALIWAL II, M.D. << Signature on File>> Reported By: MANUEL BARBOSA D.O. Signed By: MANUEL BARBOSA D.O. Tests performed at: [place] [id number] documented in this encounterRegency Hospital [facility]08-05-2022 Miscellaneous Notes* Telephone Encounter - Garima Drew MA - 04/21/2022 1:05 PM EDT Fax received from [facility] regarding Prior Auth for TIZANIDINE HCL 4 mg tablet. NO PRIOR AUTH NEEDED. Garima Drew MA documented in this encounterRegency Hospital [facility]08-04-2022 Miscellaneous Notes* Telephone Encounter - Kentrell Dhaliwal II, MD - 04/20/2022 4:35 PM EDT I would suggest that we send prescription for a couple of weeks for local pharmacy to see how she does with the medication before we send it to [facility] I can send a 1 week supply of Colestid to what ever local pharmacy she would like documented in this encounterRegency Hospital [facility]08-03-2022 History of Present illness Narrative* Kentrell Dhaliwal II, MD - 04/19/2022 1:56 PM EDT Images from the original note were not included. Kentrell Dhaliwal II, MD [address], [place] [address] NOEMI Escobar is a 71 year old female who presents with F/U 3 months (BCS, REGAN, CRS, labs). HPI Patient is in today to follow-up the medication changes we made last visit for anxiety and depression. She states she does feel like the Zoloft has helped some but she would like to increase the doseif she continues to have anxiety and depression. She also continues to have the issues with her stomach where she will go for a couple of days with constipation and then have diarrhea after. She states she is not sleeping well and she is getting less than 4 hours a night. The weight that she has been taking her medication is that she takes a Xanax at 8:00 and then takes a Ambien at 1:00 AM. We did review her medications overall and the best times to take her medications again at this visit. Review of Systems Constitutional: Negative for activity change, appetite change, chills, diaphoresis, fatigue, fever and unexpected weight change. HENT: Negative for congestion, dental problem, drooling, ear discharge, ear pain, facial swelling, hearing loss, mouth sores, nosebleeds, postnasal drip, rhinorrhea, sinus pressure, sinus pain, sneezing, sore throat, tinnitus, trouble swallowing and voice change. Eyes: Negative for discharge, redness and visual disturbance. Respiratory: Negative for apnea, cough, choking, chest tightness, shortness of breath, wheezing andstridor. Cardiovascular: Negative for chest pain, palpitations and leg swelling. Gastrointestinal: Positive for abdominal distention, constipation, diarrhea, nausea and vomiting. Negative for abdominal pain, anal bleeding, blood in stool and rectal pain. Endocrine: Negative for cold intolerance, heat intolerance, polydipsia, polyphagia and polyuria. Genitourinary: Negative for decreased urine volume, difficulty urinating, dysuria, enuresis, frequency, hematuria and urgency. Musculoskeletal: Negative for arthralgias, gait problem and myalgias. Skin: Negative for color change, pallor, rash and wound. Allergic/Immunologic: Negative for environmental allergies. Neurological: Negative for dizziness, tremors, syncope, facial asymmetry, speech difficulty, weakness, light-headedness, numbness and headaches. Hematological: Negative for adenopathy. Does not bruise/bleed easily. Psychiatric/Behavioral: Negative for agitation, behavioral problems, confusion, decreased concentration, dysphoric mood, hallucinations, self-injury, sleep disturbance and suicidal ideas. The patientis not nervous/anxious and is not hyperactive. PAST MEDICAL HISTORY Diagnosis Date Anxiety and depression Diabetes (HCC) Drug-induced Parkinson's disease (HCC) GERD (gastroesophageal reflux disease) History of DVT (deep vein thrombosis) IBS (irritable bowel syndrome) Seizures (HCC) Tremor PAST SURGICAL HISTORY Procedure Laterality Date CHOLECYSTECTOMY HX COLON SURGERY HX HYSTERECTOMY HX ROTATOR CUFF REPAIR Left TONSILLECTOMY HX WRIST SURGERY HX Right Social History Tobacco Use Smoking status: Never Smoker Smokeless tobacco: Never Used Vaping Use Vaping Use: Never used Substance Use Topics Alcohol use: Not Currently Drug use: Never FAMILY HISTORY Problem Relation Age of Onset Emphysema Mother Heart disease Father The ROS, medical, surgical, family, and social history were reviewed by Kentrell Dhaliwal II, MD ALLERGIES Allergen Reactions Latex Anaphylaxis Abilify [Aripiprazo* Other: See Comments Muscles couldn't get up Codeine Diarrhea Compazine [Prochlor* Myalgia Levaquin [Levofloxa* Diarrhea Omnicef [Cefdinir] Diarrhea Prednisone GI Upset Npzuxug-Bum-Qkk Red* Diarrhea Sulfa (Sulfonamide * Other: See Comments Leg pain Shellfish Containin* Swelling Current Outpatient Medications Medication Sig multivitamin tablet Take 1 tablet by mouth once daily. SF 5000 PLUS 1.1 % dental cream ferrous sulfate 325 mg (65 mg iron) tablet Take 325 mg by mouth. acetaminophen (TYLENOL) 325 mg tablet Take 650 mg by mouth every 6 hours as needed. tiZANidine HCl (ZANAFLEX) 4 mg capsule Take 1 capsule by mouth three times daily as needed. levothyroxine (SYNTHROID) 50 mcg tablet Take 1 tablet by mouth once daily. ondansetron (ZOFRAN) 8 mg tablet Take 1 tablet by mouth every 8 hours as needed for nausea/vomiting. ALPRAZolam (XANAX) 1 mg tablet Take 1 tablet by mouth every 12 hours as needed for up to 30 days. zolpidem (AMBIEN) 10 mg TAKE 1 TABLET BY MOUTH EVERY DAY AT BEDTIME NEEDED FOR INSOMNIA docusate sodium (COLACE) 100 mg capsule Take 1 capsule by mouth twice daily. simethicone 250 mg cap Take 1 capsule by mouth twice daily. esomeprazole (NEXIUM) 20 mg capsule TAKE 1 CAPSULE BY MOUTH DAILY (6 AM) apixaban (ELIQUIS) 5 mg tab(s) Take 1 tablet by mouth twice daily. sertraline (ZOLOFT) 100 mg tablet Take 1 tablet by mouth once daily. clindamycin (CLEOCIN HCL) 300 mg capsule Take 1 capsule by mouth three times daily for 7 days. hyoscyamine SR (LEVBID) 0.375 mg 12 hr tablet Take 1 tablet by mouth twice daily. No current facility-administered medications for this visit. OBJECTIVE BP 128/82 (BP Site: Left Arm, BP Position: Sitting) Pulse 88 Temp (!) 35.8 C (96.5 F) Resp 12 Ht 154.9 cm (5' 1) Wt 69.6 kg (153 lb 6.4 oz) SpO2 98% BMI 28.98 kg/m BMI 28.98 kg/(m^2) Physical Exam Vitals and nursing note reviewed. Constitutional: General: She is not in acute distress. Appearance: Normal appearance. She is not ill-appearing, toxic-appearing or diaphoretic. HENT: Head: Normocephalic and atraumatic. Right Ear: Tympanic membrane, ear canal and external ear normal. There is no impacted cerumen. Left Ear: Tympanic membrane, ear canal and external ear normal. There is no impacted cerumen. Nose: Nose normal. No congestion or rhinorrhea. Mouth/Throat: Mouth: Mucous membranes are moist. Pharynx: Oropharynx is clear. No oropharyngeal exudate or posterior oropharyngeal erythema. Eyes: General: No scleral icterus. Right eye: No discharge. Left eye: No discharge. Extraocular Movements: Extraocular movements intact. Conjunctiva/sclera: Conjunctivae normal. Pupils: Pupils are equal, round, and reactive to light. Neck: Vascular: No carotid bruit. Cardiovascular: Rate and Rhythm: Normal rate and regular rhythm. Pulses: Normal pulses. Heart sounds: Normal heart sounds. No murmur heard. No friction rub. No gallop. Pulmonary: Effort: Pulmonary effort is normal. No respiratory distress. Breath sounds: Normal breath sounds. No stridor. No wheezing, rhonchi or rales. Chest: Chest wall: No tenderness. Abdominal: General: Abdomen is flat. Bowel sounds are normal. There is no distension. Palpations: Abdomen is soft. There is no mass. Tenderness: There is no abdominal tenderness. There is no right CVA tenderness, left CVA tenderness, guarding or rebound. Hernia: No hernia is present. Musculoskeletal: General: No signs of injury. Cervical back: Normal range of motion and neck supple. No rigidity or tenderness. Comments: ROM and strength without significant changes from previous examinations and consistent with patient history Lymphadenopathy: Cervical: No cervical adenopathy. Skin: General: Skin is warm and dry. Capillary Refill: Capillary refill takes less than 2 seconds. Coloration: Skin is not jaundiced or pale. Findings: No erythema, lesion or rash. Neurological: General: No focal deficit present. Mental Status: She is alert and oriented to person, place, and time. Mental status is at baseline. Cranial Nerves: No cranial nerve deficit. Sensory: No sensory deficit. Motor: No weakness. Coordination: Coordination normal. Gait: Gait normal. Deep Tendon Reflexes: Reflexes normal. Psychiatric: Mood and Affect: Mood normal. Behavior: Behavior normal. Thought Content: Thought content normal. Judgment: Judgment normal. Labs: Hemoglobin (g/dL) Date Value 02/01/2022 10.3 Hematocrit (%) Date Value 02/01/2022 32.2 WBC (x10(3)) Date Value 02/01/2022 7.6 Platelet Count (X10(3)) Date Value 02/01/2022 319 Creatinine Date Value Ref Range Status 02/01/2022 1.02 (H) 0.50 - 0.90 mg/dL Final AST Date Value Ref Range Status 01/28/2022 31 5 - 32 U/L Final ALT Date Value Ref Range Status 01/28/2022 29 5 - 33 U/L Final Blood Culture (no units) Date Value 11/12/2021 XXX 11/12/2021 XXX Bilirubin, Total (mg/dL) Date Value 01/28/2022 0.2 Antibody Screen (no units) Date Value 11/01/2021 NEGATIVE WBC (x10(3)) Date Value 02/01/2022 7.6 RBC (x10(6)) Date Value 02/01/2022 3.79 %DIG,%DBS Plan ASSESSMENT/PLAN: 1. Anxiety and depression - ICD9: 300.00, 311, ICD10: F41.9, F32.A (primary diagnosis) The patient does have continued anxiety and depression. I do think a lot of her issues are significantly exacerbated by her anxiety depression and insomnia. We will going to increase her Zoloft 100 mg a day and we did discuss some more optimal way to take her Xanax and zolpidem. She is going to call in 1 to 2 weeks with an update and depending on her progress we will plan on her following up in 3months or sooner if needed - ALPRAZOLAM 1 MG TABLET 2. Irritable bowel syndrome with both constipation and diarrhea - ICD9: 564.1, ICD10: K58.2 We will be going to add Levsinex twice daily and she can continue to use simethicone and Zofran as needed. She will call in 1 to 2 weeks or sooner if needed with an update and we will give her further recommendations at that time 3. Gastroesophageal reflux disease, unspecified whether esophagitis present - ICD9: 530.81, ICD10: K21.9 Clinically stable. Continue same medication and treatment. Follow up in 3 to 6 months or sooner if needed. - CBC - BASIC METABOLIC PNL - LIPID PANEL BASIC - TSH BLD 4. Type 2 diabetes mellitus without complication, without long-term current use of insulin (HCC) - ICD9: 250.00, ICD10: E11.9 Controlled. - Continue current medications - Blood glucose monitoring on a once a day schedule - Follow up in 3 months, sooner should any other issues arise. - Discussed diabetic education issues of correction diabetic complications, hypoglycemic symptoms, hyperglycemic symptoms, diet, medications- side effects and need for compliance, importance of exercise, importance of appointments with Administrative Court Justice and importance of annual examinations with Opthalmology with patient. - BP goal of <130/80 - LDL goal of <100 - CBC - BASIC METABOLIC PNL - LIPID PANEL BASIC - TSH BLD 5. Elevated liver function tests - ICD9: 790.6, ICD10: R79.89 Her liver function tests on the last follow-up labs were normal. She does have an appointment within the next month with Dr. Delacruz for further evaluation and treatment. I did mention that he is also a inside horticultural specialty grower and she should discuss her gastrointestinal issues with him as well. - CBC - BASIC METABOLIC PNL - LIPID PANEL BASIC - TSH BLD - HEPATIC FUNCTION PNL 6. Hypothyroidism, acquired - ICD9: 244.9, ICD10: E03.9 - Instructed patient on importance of taking on an empty stomach either first thing in the morning or at bedtime. - check TSH in 6 months - continue current dose of Synthroid - Follow up in 3 months Weight decreasing - Continue current medications - CBC - BASIC METABOLIC PNL - LIPID PANEL BASIC - TSH BLD 7. Myalgias - ICD9: 729.1, ICD10: M79.10 Refill muscle relaxer every 8 hours as needed. Follow-up as needed for this issue - TIZANIDINE 4 MG CAPSULE 8. Chronic insomnia - ICD9: 780.52, ICD10: F51.04 She is given continue the current medications but she is going on a test how she is taking the medication taking both Xanax and Ambien before she goes to sleep at 8:00. She is can call us with an update in 1 to 2 weeks or sooner if needed and will give her further recommendations at that time - LEVOTHYROXINE 50 MCG TABLET PDMP website checked and validated. All prescriptions have been APPROPRIATELY filled. No suspiciousactivity was identified. 04/19/2022 by MD Kentrell Snider II, II, MD Follow up: Return in about 6 months (around 10/20/2022). Kentrell Dhaliwal II, M.D. documented in this encounterReg[facility]22 Instructions* Patient Instructions* Kentrell Dhaliwal II, MD - 04/19/2022 1:10 PM EDT Please consider having the following Health Maintenance testing completed: PNEUMOCOCCAL: 66+(1 - PCV) DILATED RETINAL EXAM DTAP,TDAP,TD(1 - Tdap) MAMMOGRAM COLORECTAL CANCER SCREENING SHINGRIX VACCINE(1 of 2) BONE DENSITY If your testing is not done at a [facility] facility please provide this office with the results of your testing. documented in this encounterReg[facility]07-19-2022 Miscellaneous Notes* Telephone Encounter - Husam Grant MA - 04/04/2022 7:59 AM EDT Pharmacy faxed requesting the following refill Refill(s) Requested: Pending Prescriptions Disp Refills SERTRALINE 50 MG TABLET 30 tablet 0 Sig: TAKE 1 TABLET BY MOUTH ONCE DAILY GENNA: Yes ALLERGIES Allergen Reactions Latex Anaphylaxis Codeine Diarrhea Compazine [Prochlor* Myalgia Levaquin [Levofloxa* Diarrhea Omnicef [Cefdinir] Diarrhea Prednisone GI Upset Btlunyy-Vri-Vbv Red* Diarrhea Sulfa (Sulfonamide * Other: See Comments Leg pain (home) [phone] (cell) Last Office Visit Date: 02/28/2022 Last Distance Health Visit: Visit date not found Future Appointment: 04/19/2022 The patients preferred pharmacy has been captured for this encounter? yes Request is for script(s) to be escript to pharmacy. Husam Grant MA documented in this encounterReg[facility]07-18-2022 Miscellaneous Notes* Telephone Encounter - Husam Grant MA - 04/03/2022 8:07 AM EDT Pharmacy faxed requesting the following refill Refill(s) Requested: Pending Prescriptions Disp Refills ZOLPIDEM 10 MG TABLET 30 tablet 0 Sig: TAKE 1 TABLET BY MOUTH EVERY DAY AT BEDTIME NEEDED FOR INSOMNIA VIJI Class: C-IV GENNA: Yes ALLERGIES Allergen Reactions Latex Anaphylaxis Codeine Diarrhea Compazine [Prochlor* Myalgia Levaquin [Levofloxa* Diarrhea Omnicef [Cefdinir] Diarrhea Prednisone GI Upset Rojhodd-Ucs-Ref Red* Diarrhea Sulfa (Sulfonamide * Other: See Comments Leg pain (home) [phone] (cell) Last Office Visit Date: 02/28/2022 Last Distance Health Visit: Visit date not found Future Appointment: 04/19/2022 The patients preferred pharmacy has been captured for this encounter? yes Request is for script(s) to be escript to pharmacy. Husam Grant MA documented in this encounterReg[facility]07-05-2022 Miscellaneous Notes* Telephone Encounter - Husam Grant MA - 03/21/2022 9:34 AM EDT Pharmacy faxed requesting the following refill Refill(s) Requested: Pending Prescriptions Disp Refills ALPRAZOLAM 1 MG TABLET 60 tablet 0 Sig: TAKE 1 TABLET BY MOUTH EVERY 12 HOURS NEEDED VIJI Class: C-IV GENNA: Yes ALLERGIES Allergen Reactions Latex Anaphylaxis Codeine Diarrhea Compazine [Prochlor* Myalgia Levaquin [Levofloxa* Diarrhea Omnicef [Cefdinir] Diarrhea Prednisone GI Upset Oytcnir-Kiv-Buh Red* Diarrhea Sulfa (Sulfonamide * Other: See Comments Leg pain (home) [phone] (cell) Last Office Visit Date: 02/28/2022 Last [facility] Visit: Visit date not found Future Appointment: 04/19/2022 The patients preferred pharmacy has been captured for this encounter? yes Request is for script(s) to be escript to pharmacy. Husam Grant MA documented in this encounterReg[facility]06-16-2022 Miscellaneous Notes* Telephone Encounter - Garima Drew MA - 03/02/2022 9:24 AM EDT Called patient to inform of Dr. Dhaliwal message. Patient states understanding and will call her Gastro to see what medication he would recommend. Garima Drew MA * Telephone Encounter - Kentrell Dhaliwal II, MD - 03/01/2022 4:08 PM EDT If the Celebrex is not helping then stop The Zoloft may actually help the abdominal pain If she wants to try something else then she needs to call the inside horticultural specialty grower for their recommendations on what to prescribe as the rest of the options left to try may affect her bowels * Telephone Encounter - Garima Drew MA - 03/01/2022 3:48 PM EDT Called patient to clarify area of pain. Patient states she is having abdominal pain. Patient statesI am taking Celexa but it is not helping the pain. I informed patient that Celexa is not for painand I did not see it on her med list. I believe she may be referring to Celebrex. Please advise Garima Drew MA * Telephone Encounter - Kentrell Dhaliwal II, MD - 03/01/2022 11:44 AM EDT I did send in Zoloft to try. Is she referring to abdominal pain or joint or muscle pain? * Telephone Encounter - Garima Drew MA - 03/01/2022 11:07 AM EDT Patient called stating she thought Dr. Dhaliwal was going to call something to her Pharmacy for her pain. She wanted to verify with Dr. Dhaliwal prior to making the trip to the Pharmacy. Please advise Garima Drew MA documented in this encounterReg[facility]06-14-2022 NoteHNO ID: [id number] Author: Kentrell Dhaliwal II, MD Service: ? Author Type: Physician Type: Progress Notes Filed: 03/06/2022 8:53 PM Note Text: Kentrell Dhaliwal II, MD [address], [address] [place] [address] SUBJECTIVE Kaitlyn Escobar is a 71 year old female who presents with Hospital Follow Up (Bowel issues). HPI Patient is in today to follow-up her chronic problems including gastrointestinal issues for which she had hospital stay short time ago. She states she is feeling better and she would like to try a different medication for both anxiety and depression and gastrointestinal issues. She states that her sister takes Zoloft and she would like to consider trying this. She also would like to have prescription for Ambien for insomnia. Review of Systems Constitutional: Negative for activity change, appetite change, chills, diaphoresis, fatigue, fever and unexpected weight change. HENT: Negative for congestion, dental problem, ear pain, hearing loss, nosebleeds, postnasal drip, rhinorrhea, sinus pressure, sinus pain, sore throat, trouble swallowing and voice change. Eyes: Negative for discharge, redness and visual disturbance. Respiratory: Negative for apnea, cough, choking, chest tightness, shortness of breath, wheezing and stridor. Cardiovascular: Negative for chest pain, palpitations and leg swelling. Gastrointestinal: Negative for abdominal distention, abdominal pain, blood in stool, constipation, diarrhea, nausea and vomiting. Endocrine: Negative for cold intolerance, heat intolerance, polydipsia, polyphagia and polyuria. Genitourinary: Negative for decreased urine volume, difficulty urinating, dysuria, enuresis, frequency, hematuria and urgency. Musculoskeletal: Negative for arthralgias, gait problem and myalgias. Skin: Negative for color change, pallor, rash and wound. Allergic/Immunologic: Negative for environmental allergies. Neurological: Negative for dizziness, tremors, syncope, facial asymmetry, speech difficulty, weakness, light-headedness, numbness and headaches. Hematological: Negative for adenopathy. Does not bruise/bleed easily. Psychiatric/Behavioral: Negative for agitation, behavioral problems, confusion, decreased concentration, dysphoric mood, hallucinations, self-injury, sleep disturbance and suicidal ideas. The patient is not nervous/anxious and is not hyperactive. PAST MEDICAL HISTORY Diagnosis Date - Anxiety and depression - Diabetes (HCC) - Drug-induced Parkinson's disease (HCC) - GERD (gastroesophageal reflux disease) - History of DVT (deep vein thrombosis) - IBS (irritable bowel syndrome) - Seizures (HCC) - Tremor PAST SURGICAL HISTORY Procedure Laterality Date - CHOLECYSTECTOMY HX - COLON SURGERY HX - HYSTERECTOMY HX - ROTATOR CUFF REPAIR Left - TONSILLECTOMY HX - WRIST SURGERY HX Right Social History Tobacco Use - Smoking status: Never Smoker - Smokeless tobacco: Never Used Vaping Use - Vaping Use: Never used Substance Use Topics - Alcohol use: Not Currently - Drug use: Never FAMILY HISTORY Problem Relation Age of Onset - Emphysema Mother - Heart disease Father The ROS, medical, surgical, family, and social history were reviewed by Kentrell Dhaliwal II, MD ALLERGIES Allergen Reactions - Latex Anaphylaxis - Codeine Diarrhea - Compazine [Prochlor* Myalgia - Levaquin [Levofloxa* Diarrhea - Omnicef [Cefdinir] Diarrhea - Prednisone GI Upset - Aozkfbx-Zsx-Shr Red* Diarrhea - Sulfa (Sulfonamide * Other: See Comments Leg pain Current Outpatient Medications Medication Sig - zolpidem (AMBIEN) 10 mg Take 1 tablet by mouth at bedtime as needed for up to 30 days. For Insomnia - ALPRAZolam (XANAX) 1 mg tablet Take 1 tablet by mouth every 12 hours as needed for up to 30 days. - docusate sodium (COLACE) 100 mg capsule Take 1 capsule by mouth twice daily. - simethicone 250 mg cap Take 1 capsule by mouth twice daily. - traMADol (ULTRAM) 50 mg tablet - esomeprazole (NEXIUM) 20 mg capsule TAKE 1 CAPSULE BY MOUTH DAILY (6 AM) - apixaban (ELIQUIS) 5 mg tab(s) Take 1 tablet by mouth twice daily. - ondansetron (ZOFRAN) 8 mg tablet Take 1 tablet by mouth every 8 hours as needed for nausea/vomiting. - levothyroxine (SYNTHROID) 50 mcg tablet Take 1 tablet by mouth once daily. - tiZANidine HCl 4 mg capsule Take 4 mg by mouth three times daily as needed. - sertraline (ZOLOFT) 50 mg tablet Take 1 tablet by mouth once daily. No current facility-administered medications for this visit. OBJECTIVE BP 110/78 (BP Site: Right Arm, BP Position: Sitting) Resp 14 Wt 163 lb 4.8 oz (74.1 kg) SpO2 98% BMI 30.86 kg/m? BMI 30.86 kg/(m2) Physical Exam Vitals and nursing note reviewed. Constitutional: General: She is not in acute distress. Appearance: Normal appearance. She is not ill-appearing, toxic-appearing or diaphoretic. HENT: Head: Normo (more content not included)...[facility]06-14-[facility] History of Present illness Narrative* Kentrell Dhaliwal II, MD - 02/28/2022 6:10 PM EDT Images from the original note were not included. Kentrell Dhaliwal II, MD [address], [address] [place] [id number] SUBJECTIVE Kaitlyn Escobar is a 71 year old female who presents with Hospital Follow Up (Bowel issues). HPI Patient is in today to follow-up her chronic problems including gastrointestinal issues for which she had hospital stay short time ago. She states she is feeling better and she would like to try a different medication for both anxiety and depression and gastrointestinal issues. She states that her sister takes Zoloft and she would like to consider trying this. She also would like to have prescription for Ambien for insomnia. Review of Systems Constitutional: Negative for activity change, appetite change, chills, diaphoresis, fatigue, fever and unexpected weight change. HENT: Negative for congestion, dental problem, ear pain, hearing loss, nosebleeds, postnasal drip, rhinorrhea, sinus pressure, sinus pain, sore throat, trouble swallowing and voice change. Eyes: Negative for discharge, redness and visual disturbance. Respiratory: Negative for apnea, cough, choking, chest tightness, shortness of breath, wheezing andstridor. Cardiovascular: Negative for chest pain, palpitations and leg swelling. Gastrointestinal: Negative for abdominal distention, abdominal pain, blood in stool, constipation, diarrhea, nausea and vomiting. Endocrine: Negative for cold intolerance, heat intolerance, polydipsia, polyphagia and polyuria. Genitourinary: Negative for decreased urine volume, difficulty urinating, dysuria, enuresis, frequency, hematuria and urgency. Musculoskeletal: Negative for arthralgias, gait problem and myalgias. Skin: Negative for color change, pallor, rash and wound. Allergic/Immunologic: Negative for environmental allergies. Neurological: Negative for dizziness, tremors, syncope, facial asymmetry, speech difficulty, weakness, light-headedness, numbness and headaches. Hematological: Negative for adenopathy. Does not bruise/bleed easily. Psychiatric/Behavioral: Negative for agitation, behavioral problems, confusion, decreased concentration, dysphoric mood, hallucinations, self-injury, sleep disturbance and suicidal ideas. The patientis not nervous/anxious and is not hyperactive. PAST MEDICAL HISTORY Diagnosis Date Anxiety and depression Diabetes (HCC) Drug-induced Parkinson's disease (HCC) GERD (gastroesophageal reflux disease) History of DVT (deep vein thrombosis) IBS (irritable bowel syndrome) Seizures (HCC) Tremor PAST SURGICAL HISTORY Procedure Laterality Date CHOLECYSTECTOMY HX COLON SURGERY HX HYSTERECTOMY HX ROTATOR CUFF REPAIR Left TONSILLECTOMY HX WRIST SURGERY HX Right Social History Tobacco Use Smoking status: Never Smoker Smokeless tobacco: Never Used Vaping Use Vaping Use: Never used Substance Use Topics Alcohol use: Not Currently Drug use: Never FAMILY HISTORY Problem Relation Age of Onset Emphysema Mother Heart disease Father The ROS, medical, surgical, family, and social history were reviewed by Kentrell Dhaliwal II, MD ALLERGIES Allergen Reactions Latex Anaphylaxis Codeine Diarrhea Compazine [Prochlor* Myalgia Levaquin [Levofloxa* Diarrhea Omnicef [Cefdinir] Diarrhea Prednisone GI Upset Toxoswo-Sne-Sur Red* Diarrhea Sulfa (Sulfonamide * Other: See Comments Leg pain Current Outpatient Medications Medication Sig zolpidem (AMBIEN) 10 mg Take 1 tablet by mouth at bedtime as needed for up to 30 days. For Insomnia ALPRAZolam (XANAX) 1 mg tablet Take 1 tablet by mouth every 12 hours as needed for up to 30 days. docusate sodium (COLACE) 100 mg capsule Take 1 capsule by mouth twice daily. simethicone 250 mg cap Take 1 capsule by mouth twice daily. traMADol (ULTRAM) 50 mg tablet esomeprazole (NEXIUM) 20 mg capsule TAKE 1 CAPSULE BY MOUTH DAILY (6 AM) apixaban (ELIQUIS) 5 mg tab(s) Take 1 tablet by mouth twice daily. ondansetron (ZOFRAN) 8 mg tablet Take 1 tablet by mouth every 8 hours as needed for nausea/vomiting. levothyroxine (SYNTHROID) 50 mcg tablet Take 1 tablet by mouth once daily. tiZANidine HCl 4 mg capsule Take 4 mg by mouth three times daily as needed. sertraline (ZOLOFT) 50 mg tablet Take 1 tablet by mouth once daily. No current facility-administered medications for this visit. OBJECTIVE BP 110/78 (BP Site: Right Arm, BP Position: Sitting) Resp 14 Wt 163 lb 4.8 oz (74.1 kg) SpO2 98% BMI 30.86 kg/m BMI 30.86 kg/(m^2) Physical Exam Vitals and nursing note reviewed. Constitutional: General: She is not in acute distress. Appearance: Normal appearance. She is not ill-appearing, toxic-appearing or diaphoretic. HENT: Head: Normocephalic and atraumatic. Right Ear: Tympanic membrane, ear canal and external ear normal. There is no impacted cerumen. Left Ear: Tympanic membrane, ear canal and external ear normal. There is no impacted cerumen. Nose: Nose normal. No congestion or rhinorrhea. Mouth/Throat: Mouth: Mucous membranes are moist. Pharynx: Oropharynx is clear. No oropharyngeal exudate or posterior oropharyngeal erythema. Eyes: General: No scleral icterus. Right eye: No discharge. Left eye: No discharge. Extraocular Movements: Extraocular movements intact. Conjunctiva/sclera: Conjunctivae normal. Pupils: Pupils are equal, round, and reactive to light. Neck: Vascular: No carotid bruit. Cardiovascular: Rate and Rhythm: Normal rate and regular rhythm. Pulses: Normal pulses. Heart sounds: Normal heart sounds. No murmur heard. No friction rub. No gallop. Pulmonary: Effort: Pulmonary effort is normal. No respiratory distress. Breath sounds: Normal breath sounds. No stridor. No wheezing, rhonchi or rales. Chest: Chest wall: No tenderness. Abdominal: General: Abdomen is flat. Bowel sounds are normal. There is no distension. Palpations: Abdomen is soft. There is no mass. Tenderness: There is no abdominal tenderness. There is no right CVA tenderness, left CVA tenderness, guarding or rebound. Hernia: No hernia is present. Musculoskeletal: General: No signs of injury. Cervical back: Normal range of motion and neck supple. No rigidity or tenderness. Comments: ROM and strength without significant changes from previous examinations and consistent with patient history Lymphadenopathy: Cervical: No cervical adenopathy. Skin: General: Skin is warm and dry. Capillary Refill: Capillary refill takes less than 2 seconds. Coloration: Skin is not jaundiced or pale. Findings: No erythema, lesion or rash. Neurological: General: No focal deficit present. Mental Status: She is alert and oriented to person, place, and time. Mental status is at baseline. Cranial Nerves: No cranial nerve deficit. Sensory: No sensory deficit. Motor: No weakness. Coordination: Coordination normal. Gait: Gait normal. Deep Tendon Reflexes: Reflexes normal. Psychiatric: Mood and Affect: Mood normal. Behavior: Behavior normal. Thought Content: Thought content normal. Judgment: Judgment normal. Labs: Hemoglobin (g/dL) Date Value 02/01/2022 10.3 Hematocrit (%) Date Value 02/01/2022 32.2 WBC (x10(3)) Date Value 02/01/2022 7.6 Platelet Count (X10(3)) Date Value 02/01/2022 319 Creatinine Date Value Ref Range Status 02/01/2022 1.02 (H) 0.50 - 0.90 mg/dL Final AST Date Value Ref Range Status 01/28/2022 31 5 - 32 U/L Final ALT Date Value Ref Range Status 01/28/2022 29 5 - 33 U/L Final Blood Culture (no units) Date Value 11/12/2021 XXX 11/12/2021 XXX Bilirubin, Total (mg/dL) Date Value 01/28/2022 0.2 Antibody Screen (no units) Date Value 11/01/2021 NEGATIVE WBC (x10(3)) Date Value 02/01/2022 7.6 RBC (x10(6)) Date Value 02/01/2022 3.79 %DIG,%DBS Plan ASSESSMENT/PLAN: 1. Anxiety and depression - ICD9: 300.00, 311, ICD10: F41.9, F32.A (primary diagnosis) Trial of Zoloft. Call in 2 weeks or sooner if needed with an update and follow- up in 1 to 3 months or sooner if needed depending on his progress 2. Chronic insomnia - ICD9: 780.52, ICD10: F51.04 Zolpidem 10 mg nightly. Call with updates as discussed in follow-up in 1 to 3 months or sooner if needed depending on her progress. - ZOLPIDEM 10 MG TABLET 3. Gastroesophageal reflux disease, unspecified whether esophagitis present - ICD9: 530.81, ICD10: K21.9 Clinically stable. Continue same medication and treatment. Follow up in 3 to 6 months or sooner if needed. 4. Type 2 diabetes mellitus without complication, without long-term current use of insulin (HCC) - ICD9: 250.00, ICD10: E11.9 improved control - Encouraged regular aerobic exercise and weight loss 5. SBO (small bowel obstruction) (HCC) - ICD9: 560.9, ICD10: K56.609 Patient reports symptoms are improved and she is following up with general surgery for this issue. Kentrell Dhaliwal II, MD Follow up: Return in about 6 weeks (around 04/11/2022). Kentrell Dhaliwal II, M.D. documented in this encounterRegency [facility]-08-2022 Miscellaneous Notes* Telephone Encounter - Kentrell Dhaliwal II, MD - 02/22/2022 1:10 PM EDT Done * Telephone Encounter - Liliana Sainz - 02/22/2022 12:05 PM EDT Went to Dr Neff yesterday. 02/21/2022. He wants her to take 1 stool softener per day. She said themedication was called DOM, but we figured it is the Colace. She does need a refill of this, plus she is due for her Xanax. She is wondering if both scripts could be sent to [facility], so she can pick them up Sunday. Liliana Sainz documented in this encounterRegency Hospital [facility]05-20-2022 NoteHNO ID: [id number] Author: Lelia Benavides RN Service: ? Author Type: Registered Nurse Type: Progress Notes Filed: 02/06/2022 7:50 AM Note Text: TRANSITIONAL CARE MANAGEMENT (TCM) COMMUNITY MONITORING PROGRAM - [place] Provider Action/FYI: ? Unable to reach patient x 2 attempts Lelia Benavides RN SUMMARY: Pt discharged from [facility] on 02/01/2022 Admitted for: SBO Contact made with patient: No - 2nd unsuccessful attempt - end outreach and close encounter Repeat message left on cell phone/telephone answering device requesting patient return my call ([phone]). Outreach ended Lelia Benavides [facility]05-20-2022 Miscellaneous Notes* Telephone Encounter - Garima Drew MA - 02/03/2022 11:56 AM EDT Pharmacy faxed requesting the following refill Refill(s) Requested: Pending Prescriptions Disp Refills ZOLPIDEM 10 MG TABLET 30 tablet 0 Sig: TAKE 1 TABLET BY MOUTH EVERY DAY AT BEDTIME NEEDED FOR INSOMNIA VIJI Class: C-IV GENNA: Yes ALLERGIES Allergen Reactions Latex Anaphylaxis Codeine Diarrhea Compazine [Prochlor* Myalgia Levaquin [Levofloxa* Diarrhea Omnicef [Cefdinir] Diarrhea Prednisone GI Upset Fyabjtb-Neb-Fzr Red* Diarrhea Sulfa (Sulfonamide * Other: See Comments Leg pain (home) [phone] (cell) Last Office Visit Date: 01/05/2022 Last Distance Health Visit: Visit date not found Future Appointment: 04/19/2022 The patients preferred pharmacy has been captured for this encounter? yes Request is for script(s) to be escript to pharmacy. Garima Drew MA refill documented in this encounterRegency Hospital [facility]05-20-2022 History of Present illness Narrative* Lelia Benavides RN - 02/03/2022 10:13 AM EDT TRANSITIONAL CARE MANAGEMENT (TCM) COMMUNITY MONITORING PROGRAM - [place] Provider Action/FYI: Unable to reach patient x 2 attempts Lelia Benavides RN SUMMARY: Pt discharged from [facility] on 02/01/2022 Admitted for: SBO Contact made with patient: No - 2nd unsuccessful attempt - end outreach and close encounter Repeat message left on cell phone/telephone answering device requesting patient return my call ([phone]). Outreach ended Lelia Benavides RN * Lelia Benavides RN - 02/02/2022 10:37 AM EDT TRANSITIONAL CARE MANAGEMENT (TCM) COMMUNITY MONITORING PROGRAM - [place] Provider Action/FYI: SUMMARY: Pt discharged from [facility] on 02/01/2022. Admitted for: SBO Contact made with patient: No - next outreach attempt will be on next day Message left on cell phone/telephone answering device requesting patient return my call ([phone]). Outreach ended Lelia Benavides RN documented in this encounterRegency Hospital [facility]05-19-2022 NotePatient Outreach (AGA) KAITLYN ESCOBAR I ([id number]) 1950 F Date Time Provider Department 02/02/22 LELIA BENAVIDES During your visit today, we recorded the following information about you: Lelia Benavides RN 02/06/2022 7:50 AM Signed TRANSITIONAL CARE MANAGEMENT ([facility]) COMMUNITY MONITORING PROGRAM - [place] Provider Action/FYI: SUMMARY: Pt discharged from [facility] on 02/01/2022. Admitted for: SBO Contact made with patient: No - next outreach attempt will be on next day Message left on cell phone/telephone answering device requesting patient return my call ([phone]). Outreach ended DAVID Quick RN 02/06/2022 7:50 AM Signed TRANSITIONAL CARE MANAGEMENT (TCM) COMMUNITY MONITORING PROGRAM - [place] Provider Action/FYI: ? Unable to reach patient x 2 attempts Lelia Benavides RN SUMMARY: Pt discharged from [facility] on 02/01/2022 Admitted for: SBO Contact made with patient: No - 2nd unsuccessful attempt - end outreach and close encounter Repeat message left on cell phone/telephone answering device requesting patient return my call ([phone]). Outreach ended Lelia Benavides RN Allergies As of Date: 02/02/2022 Noted Allergy Reaction LATEX 06/22/2020 10 - Anaphylaxis CODEINE 06/22/2020 6 - Diarrhea COMPAZINE (PROCHLORPERAZINE) 06/22/2020 17 - Myalgia LEVAQUIN (LEVOFLOXACIN) 06/22/2020 6 - Diarrhea OMNICEF (CEFDINIR) 06/22/2020 6 - Diarrhea PREDNISONE 08/30/2021 8 - GI Upset [id number] REDUCTASE INHIBIT*06/22/2020 6 - Diarrhea SULFA (SULFONAMIDE ANTIBIOTICS) 06/15/2020 14 - Other: See Comments Comments: Leg pain Date Reviewed: 01/17/2022 Reviewed by: Fifi Prather MA - Fully Assessed Reason for Visit: Transition Of Care [4074] Cmt: [facility] Discharged 02/01/2022. TCM Initial encounter Prescriptions as of 02/06/2022 - zolpidem (AMBIEN) 10 mg TAKE 1 TABLET BY MOUTH EVERY DAY AT BEDTIME NEEDED FOR INSOMNIA - ALPRAZolam (XANAX) 1 mg tablet TAKE 1 TABLET BY MOUTH TWICE DAILY - alprazolam (XANAX ORAL) Take by mouth. - lubiprostone (AMITIZA) 8 mcg capsule Take 1 capsule by mouth twice daily with meals. - hyoscyamine (LEVSIN) 0.125 mg tablet Take 1 tablet by mouth twice daily. - simethicone 250 mg cap Take 1 capsule by mouth twice daily. - docusate sodium (COLACE) 100 mg capsule Take 1 capsule by mouth twice daily. - traMADol (ULTRAM) 50 mg tablet - esomeprazole (NEXIUM) 20 mg capsule TAKE 1 CAPSULE BY MOUTH DAILY (6 AM) - apixaban (ELIQUIS) 5 mg tab(s) Take 1 tablet by mouth twice daily. - ondansetron (ZOFRAN) 8 mg tablet Take 1 tablet by mouth every 8 hours as needed for nausea/vomiting. - levothyroxine (SYNTHROID) 50 mcg tablet Take 1 tablet by mouth once daily. - buPROPion XL (WELLBUTRIN XL) 150 mg 24 hr tablet Take 2 tablets by mouth once daily. - escitalopram oxalate (LEXAPRO) 20 mg tablet Take 1 tablet by mouth once daily. - tiZANidine HCl 4 mg capsule Take 4 mg by mouth three times daily as needed. Problem List As Of Date 02/02/2022 Noted Resolved Parkinson's disease (HCC) [G20] 06/22/2020 Irritable bowel syndrome with both constipation*06/22/2020 Subclinical hypothyroidism [E03.8] 06/22/2020 History of DVT (deep vein thrombosis) [Z86.718] 06/22/2020 Prediabetes [R73.03] 06/22/2020 GERD without esophagitis [K21.9] 06/22/2020 Mild episode of recurrent major depressive diso*06/22/2020 MOODY (generalized anxiety disorder) [F41.1] 06/22/2020 Chronic insomnia [F51.04] 06/22/2020 GERD (gastroesophageal reflux disease) [K21.9] Drug-induced Parkinson's disease (HCC) [G21.19] Diabetes (HCC) [E11.9] Anxiety and depression [F41.9, F32.A] Hypothyroidism, acquired [E03.9] 08/30/2021 Encounter Status:Closed by LELIA BENAVIDES on 02/06/22[facility]05-19-2022 NoteHNO ID: [id number] Author: Lelia Benavides RN Service: ? Author Type: Registered Nurse Type: Progress Notes Filed: 02/06/2022 7:50 AM Note Text: TRANSITIONAL CARE MANAGEMENT (TCM) COMMUNITY MONITORING PROGRAM - [place] Provider Action/FYI: SUMMARY: Pt discharged from [facility] on 02/01/2022. Admitted for: SBO Contact made with patient: No - next outreach attempt will be on next day Message left on cell phone/telephone answering device requesting patient return my call ([phone]). Outreach ended Lelia Benavides [facility]05-10-2022 Miscellaneous Notes* Telephone Encounter - Garima Drew MA - 01/24/2022 2:10 PM EDT Called patient to inform of Dr. Dhaliwal message. Patient states understanding and will call with any further questions or concerns. Garima Drew MA * Telephone Encounter - Kentrell Dhaliwal II, MD - 01/24/2022 2:00 PM EDT Yes Every 6 hours as needed * Telephone Encounter - Garima Drew MA - 01/24/2022 1:53 PM EDT Patient called stating she is having stomach cramps and would like to know if she can take the Bentle that Dr. Dhaliwal prescribed for her? Please advise Garima Drew MA documented in this encounterRegency Hospital [facility]05-09-2022 Miscellaneous Notes* Telephone Encounter - Liliana Sainz - 01/23/2022 1:40 PM EDT Pharmacy faxed requesting the following refill Refill(s) Requested: Pending Prescriptions Disp Refills ALPRAZOLAM 1 MG TABLET 60 tablet 0 Sig: TAKE 1 TABLET BY MOUTH TWICE DAILY VIJI Class: C-IV GENNA: Yes ALLERGIES Allergen Reactions Latex Anaphylaxis Codeine Diarrhea Compazine [Prochlor* Myalgia Levaquin [Levofloxa* Diarrhea Omnicef [Cefdinir] Diarrhea Prednisone GI Upset Apbrnhp-Swp-Xhc Red* Diarrhea Sulfa (Sulfonamide * Other: See Comments Leg pain (home) [phone] (cell) Last Office Visit Date: 01/05/2022 Last [facility] Health Visit: Visit date not found Future Appointment: 04/19/2022 The patients preferred pharmacy has been captured for this encounter? yes Request is for script(s) to be escript to pharmacy. Liliana Sainz documented in this encounterRegency Hospital [facility]05-09-2022 Miscellaneous Notes* Telephone Encounter - Garima Drew MA - 01/23/2022 1:23 PM EDT CHERIEI: Dr. Neff office called stating they will treat patient for IBS and abdominal pain however, they will not treat for SBO or liver issues. Garima Drew MA documented in this encounterRegency Hospital [facility]05-03-2022 History of Present illness Narrative* Jaswant Moseley MD - 01/17/2022 2:09 PM EDT H & P Date: January 17, 2022 Chief Complaint: Patient presents with: Follow Up: Recheck on ABD HPI: Kaitlyn Escobar is a 71 year old female who presents today for interval follow- up. Patient has beendoing much better in the past couple weeks. Really no abdominal pains at this point. Still some intermittent nausea. Also some constipation. Denies any fevers or chills. No chest pain or shortness ofbreath. ALLERGIES Allergen Reactions Latex Anaphylaxis Codeine Diarrhea Compazine [Prochlor* Myalgia Levaquin [Levofloxa* Diarrhea Omnicef [Cefdinir] Diarrhea Prednisone GI Upset Ptvtvat-Orr-Zge Red* Diarrhea Sulfa (Sulfonamide * Other: See Comments Leg pain PAST MEDICAL HISTORY Diagnosis Date Anxiety and depression Diabetes (HCC) Drug-induced Parkinson's disease (HCC) GERD (gastroesophageal reflux disease) History of DVT (deep vein thrombosis) IBS (irritable bowel syndrome) Seizures (HCC) Tremor PAST SURGICAL HISTORY Procedure Laterality Date CHOLECYSTECTOMY HX COLON SURGERY HX HYSTERECTOMY HX ROTATOR CUFF REPAIR Left TONSILLECTOMY HX WRIST SURGERY HX Right FAMILY HISTORY Problem Relation Age of Onset Emphysema Mother Heart disease Father Social History Tobacco Use Smoking status: Never Smoker Smokeless tobacco: Never Used Vaping Use Vaping Use: Never used Substance Use Topics Alcohol use: Not Currently Drug use: Never Current Outpatient Medications Medication Sig alprazolam (XANAX ORAL) Take by mouth. hyoscyamine (LEVSIN) 0.125 mg tablet Take 1 tablet by mouth twice daily. simethicone 250 mg cap Take 1 capsule by mouth twice daily. docusate sodium (COLACE) 100 mg capsule Take 1 capsule by mouth twice daily. zolpidem (AMBIEN) 10 mg Take 1 tablet by mouth at bedtime as needed for up to 30 days. for insomnia. traMADol (ULTRAM) 50 mg tablet esomeprazole (NEXIUM) 20 mg capsule TAKE 1 CAPSULE BY MOUTH DAILY (6 AM) apixaban (ELIQUIS) 5 mg tab(s) Take 1 tablet by mouth twice daily. ondansetron (ZOFRAN) 8 mg tablet Take 1 tablet by mouth every 8 hours as needed for nausea/vomiting. levothyroxine (SYNTHROID) 50 mcg tablet Take 1 tablet by mouth once daily. buPROPion XL (WELLBUTRIN XL) 150 mg 24 hr tablet Take 2 tablets by mouth once daily. escitalopram oxalate (LEXAPRO) 20 mg tablet Take 1 tablet by mouth once daily. tiZANidine HCl 4 mg capsule Take 4 mg by mouth three times daily as needed. lubiprostone (AMITIZA) 8 mcg capsule Take 1 capsule by mouth twice daily with meals. (Patient not taking: Reported on 01/17/2022 ) No current facility-administered medications for this visit. Review of Systems Constitutional: Negative for chills and fever. HENT: Negative for sinus pressure and sinus pain. Respiratory: Negative for shortness of breath. Cardiovascular: Negative for chest pain. Gastrointestinal: Positive for constipation. Negative for abdominal pain. Endocrine: Negative for polyuria. Genitourinary: Negative for dysuria. Musculoskeletal: Positive for arthralgias and back pain. Skin: Negative for pallor and rash. Neurological: Positive for dizziness. Negative for light-headedness. BP 120/70 Pulse 67 Ht 154.9 cm (5' 1) Wt 78.9 kg (174 lb) BMI 32.88 kg/m Physical Exam: General: well developed, well nourished, female in no acute distress. Alert and oriented x3. Normallanguage HEENT: a traumatic, normocephalic. PERRL. EOMI. Mucous membranes moist Heart: Regular rate and rhythm. Normal s1s2. Lungs: normal respiratory effort. CTAB Abdomen: soft. Nondistended. Nontender to palpation Neuro: cranial nerves II-XII grossly intact. Normal range of motion of upper and lower extremitites. Gross sensory to light touch in tact in upper and lower extremities Skin: warm and well perfused. Assessment/Plan: ASSESSMENT/PLAN: 1. History of small bowel obstruction - ICD9: V12.79, ICD10: Z87.19 (primary diagnosis) 2. Abdominal pain, unspecified abdominal location - ICD9: 789.00, ICD10: R10.9 Overall clinically improved. I still suspect that her problem was likely related to some inflammation or scarring at her small bowel anastomosis that now over time has improved and loosened up. At this point I do not necessarily need to see her again for this problem. I do recommend for her constipation that she should be on a fiber supplement as I think this will likely help with her ongoing improvement in transit time and may help to decrease any multiple bowel movements that she may have from her shortened bowel. She voices understanding. Jaswant Moseley MD documented in this encounterRegency Hospital [facility]05-01-2022 NoteHNO ID: [id number] Author: Kentrell Dhaliwal II, MD Service: ? Author Type: Physician Type: Progress Notes Filed: 01/15/2022 9:51 PM Note Text: Transitional Care Management TCM Eligibility Documentation The following information was gathered during the initial Patient Outreach Encounter. No flowsheet data found. Summary Discharged from: [facility] Admit Date: 12/26/21 Admitted for: Small bowel obstruction, dehydration Kentrell Dhaliwal II, MD Provider Documentation Kaitlyn Escobar is a 71 year old female here today for a follow up to recent hospitalization. I have reviewed the patient's hospital course including diagnostic testing performed during this hospitalization, their discharge medications, and my assessment and plan with the patient and any family members present at today's visit. HPI: Patient is in today to follow-up on hospital stay for small bowel obstruction and abdominal pain along with dehydration. She states that since she has been home she feels a little bit better but she continues to have abdominal discomfort and constipation. She also has generalized weakness fatigue and wanted to discuss her other chronic problems. Review of Systems Constitutional: Positive for malaise/fatigue. Negative for chills, diaphoresis, fever and weight loss. HENT: Negative for congestion, ear discharge, ear pain, nosebleeds, sinus pain and sore throat. Eyes: Negative for blurred vision. Respiratory: Negative for cough, hemoptysis, sputum production, shortness of breath, wheezing and stridor. Cardiovascular: Negative for chest pain, palpitations, orthopnea, claudication, leg swelling and PND. Gastrointestinal: Positive for abdominal pain, constipation and nausea. Negative for blood in stool, diarrhea, heartburn, melena and vomiting. Genitourinary: Negative for dysuria, flank pain, frequency, hematuria and urgency. Musculoskeletal: Positive for joint pain and myalgias. Negative for back pain, falls and neck pain. Skin: Negative for itching and rash. Neurological: Positive for weakness. Negative for dizziness, tingling, tremors, sensory change, speech change, loss of consciousness and headaches. Endo/Heme/Allergies: Negative for polydipsia. Does not bruise/bleed easily. Psychiatric/Behavioral: Negative for depression, hallucinations, memory loss, substance abuse and suicidal ideas. The patient is not nervous/anxious and does not have insomnia. Vitals BP 130/90 Pulse 105 Temp 97.2 Resp 16 Ht 5' 1 (1.55m) Wt 174 lb (78.9kg) SpO2 99% BMI 32.89 kg/(m2). Physical Exam Vitals and nursing note reviewed. Constitutional: General: She is not in acute distress. Appearance: Normal appearance. She is normal weight. She is not ill-appearing, toxic-appearing or diaphoretic. HENT: Head: Normocephalic and atraumatic. Right Ear: Tympanic membrane, ear canal and external ear normal. Left Ear: Tympanic membrane, ear canal and external ear normal. Nose: Nose normal. Mouth/Throat: Mouth: Mucous membranes are moist. Pharynx: Oropharynx is clear. No oropharyngeal exudate or posterior oropharyngeal erythema. Eyes: General: Lids are normal. Vision grossly intact. No scleral icterus. Right eye: No discharge. Left eye: No discharge. Conjunctiva/sclera: Conjunctivae normal. Pupils: Pupils are equal, round, and reactive to light. Neck: Thyroid: No thyroid mass, thyromegaly or thyroid tenderness. Vascular: No carotid bruit or JVD. Trachea: No tracheal deviation. Cardiovascular: Rate and Rhythm: Normal rate and regular rhythm. Pulses: Normal pulses. Heart sounds: Normal heart sounds. No murmur heard. No friction rub. No gallop. Pulmonary: Effort: Pulmonary effort is normal. No tachypnea, accessory muscle usage, respiratory distress or retractions. Breath sounds: Normal breath sounds. No stridor. No wheezing, rhonchi or rales. Abdominal: General: Bowel sounds are normal. There is no distension. Palpations: Abdomen is soft. There is no mass. Tenderness: There is no abdominal tenderness. There is no right CVA tenderness, left CVA tenderness, guarding or rebound. Hernia: No hernia is present. Comments: Abdomen is mildly distended and the patient has lower abdominal pain on deep palpation. There is no guarding, there is no rebound, there is no masses, no organomegaly and no bruits Musculoskeletal: General: No swelling, tenderness, deformity or signs of injury. Normal range of motion. Right shoulder: Normal. Left shoulder: Normal. Right upper arm: Normal. Left upper arm: Normal. Right elbow: Normal. Left elbow: Normal. Right forearm: Normal. Left forearm: Normal. Right wrist: Normal. Left wrist: Normal. Right hand: Normal. Left hand: Normal. Cervical back: Normal range of motion and neck supple. No rigidity or tenderness. Thoracic back: Normal. Lumbar back: Normal. Right lower leg: Normal. No raman (more content not included)...[facility]04-29-2022 Miscellaneous Notes* Telephone Encounter - Denita Thomas MA - 01/13/2022 4:09 PM EDT Patient has been informed. Denita Thomas MA * Telephone Encounter - Denita Thomas MA - 01/13/2022 4:09 PM EDT ----- Message from Kentrell Dhaliwal II, MD sent at 01/13/2022 3:53 PM EDT ----- Aside from some incidental things that probably do not have any bearing on her pain the ultrasound is not showing any significant abnormality documented in this encounterRegency Hospital [facility]04-29-2022 Miscellaneous Notes* Telephone Encounter - Denita Thomas MA - 01/13/2022 4:09 PM EDT Patient has been informed and will contact her insurance company. Denita Thomas MA * Telephone Encounter - Kentrell Dhaliwal II, MD - 01/13/2022 3:48 PM EDT I did reorder her stomach medicine for another 2 weeks. She should avoid pain medications other than anti-inflammatories and Tylenol because that could make the gastrointestinal issues worse I do think it is time she should think about going to see a inside horticultural specialty grower. * Telephone Encounter - Susanne Motta - 01/13/2022 9:43 AM EDT Kaitlyn Escobar is still having pain under her bellybutton, her bowels did finally move, and the Celebrex makes her sicker that before. Please advise Susanne Motta documented in this encounterRegency [facility]-26-2022 Miscellaneous Notes* Telephone Encounter - Susanne Motta - 01/10/2022 11:01 AM EDT Americo from [facility] called, they received the PT order we faxed but they need it to have both PT and OT. Also, she had her first therapy on 12-22, could you put that start date on the order so her ins will cover it? Also has to have the [facility] on the order. The last one had a [facility] [place] in [place] on it. Susanne Motta * Telephone Encounter - Susanne Motta - 01/10/2022 9:34 AM EDT Order faxed to [facility]. Susanne Motta * Telephone Encounter - Kentrell Dhaliwal II, MD - 01/10/2022 8:54 AM EDT Printed * Telephone Encounter - Denita Thomas MA - 01/09/2022 10:16 AM EDT Ella from [facility] called regarding patients insurance. They are denying the PT and OT for patient with out the 485 signed and an actual order. 485 has been faxed but we just need an order for patients PT and OT. Please print order and fax to [phone]. Denita Thomas documented in this encounterRegency Hospital [facility]04-22-2022 Miscellaneous Notes* Telephone Encounter - Susanne Motta - 01/06/2022 2:43 PM EDT Spoke with Kaitlyn Escobar , gave her time and date of her US. Susanne Motta * Telephone Encounter - Denita Thomas MA - 01/06/2022 2:12 PM EDT Left a voicemail advising patient to call back. Denita Thomas MA * Telephone Encounter - Kentrell Dhaliwal II, MD - 01/06/2022 1:57 PM EDT Labs were acceptable except for her liver function tests were somewhat elevated. I would suggest that we do an abdominal ultrasound documented in this encounterRegency Hospital [facility]04-21-2022 NoteHNO ID: [id number] Author: Kentrell Dhaliwal II, MD Service: ? Author Type: Physician Type: Progress Notes Filed: 01/15/2022 9:51 PM Note Text: Transitional Care Management TCM Eligibility Documentation The following information was gathered during the initial Patient Outreach Encounter. No flowsheet data found. Summary Discharged from: [facility] Admit Date: 10/30/21-11/13/21 11/24/21-11/25/21, 12/26/21-12/21/21 Admitted for: SBO, Bowel Abrasions, Bowel surgery Denita Thomas MA Provider Documentation Kaitlyn Escobar is a 71 year old female here today for a follow up to recent hospitalization. I have reviewed the patient's hospital course including diagnostic testing performed during this hospitalization, their discharge medications, and my assessment and plan with the patient and any family members present at today's visit. HPI: See above ROS See above Vitals Resp 16 Ht 5' 1 (1.55m) Wt 174 lb (78.9kg) BMI 32.89 kg/(m2). Physical Exam See above.[facility]04-21-2022 Miscellaneous Notes* Telephone Encounter - Garima Drew MA - 01/05/2022 2:39 PM EDT Prior auth for LUBIPROSTONE was sent to covermymeds Garima Drew MA documented in this encounterRegency Hospital [facility]04-12-2022 Miscellaneous Notes* Telephone Encounter - Mary Gongora MA - 12/27/2021 2:43 PM EDT Patient has been scheduled for upper GI series on 12/28/21 at 8:30am. She has been instructed NPO after 10pm and verbalizes understanding. Order has been faxed to registration with confirmaion. Mary Gongora MA documented in this encounterRegency Hospital [facility]04-12-2022 History of Present illness Narrative* Jaswant Moseley MD - 12/27/2021 2:42 PM EDT H & P Date: December 27, 2021 Chief Complaint: Patient presents with: Follow Up: ABD pain HPI: Kaitlyn Escobar is a 71 year old female who presents today for interval follow- up. Patient has still been having some intermittent pains in her abdomen. Last night she had fairly severe pains that lasted almost all night. She describes it as contraction-like in nature. They do not seem worse with food intake she tells me. Some intermittent nausea. Having formed bowel movements. She had between 2 and 3 bowel movements over the past couple days. No melena, hematochezia. She has been doing some protein shakes to supplement her meals. She is fearful that the protein supplementation might be worsening her symptoms. Denies any real bloating. ALLERGIES Allergen Reactions Latex Anaphylaxis Codeine Diarrhea Compazine [Prochlor* Myalgia Levaquin [Levofloxa* Diarrhea Omnicef [Cefdinir] Diarrhea Prednisone GI Upset Bwqdetp-Aqb-Mmy Red* Diarrhea Sulfa (Sulfonamide * Other: See Comments Leg pain PAST MEDICAL HISTORY Diagnosis Date Anxiety and depression Diabetes (HCC) Drug-induced Parkinson's disease (HCC) GERD (gastroesophageal reflux disease) History of DVT (deep vein thrombosis) IBS (irritable bowel syndrome) Seizures (HCC) Tremor PAST SURGICAL HISTORY Procedure Laterality Date CHOLECYSTECTOMY HX HYSTERECTOMY HX ROTATOR CUFF REPAIR Left TONSILLECTOMY HX WRIST SURGERY HX Right FAMILY HISTORY Problem Relation Age of Onset Emphysema Mother Heart disease Father Social History Tobacco Use Smoking status: Never Smoker Smokeless tobacco: Never Used Vaping Use Vaping Use: Never used Substance Use Topics Alcohol use: Not Currently Drug use: Never Current Outpatient Medications Medication Sig HYDROcodone-acetaminophen (NORCO) 5-325 mg per tablet traMADol (ULTRAM) 50 mg tablet esomeprazole (NEXIUM) 20 mg capsule TAKE 1 CAPSULE BY MOUTH DAILY (6 AM) ondansetron orally disintegrating (ZOFRAN ODT) 4 mg disintegrating tablet Take 1 tablet by mouth every 8 hours as needed for nausea/vomiting for up to 10 days. apixaban (ELIQUIS) 5 mg tab(s) Take 1 tablet by mouth twice daily. ondansetron (ZOFRAN) 8 mg tablet Take 1 tablet by mouth every 8 hours as needed for nausea/vomiting. levothyroxine (SYNTHROID) 50 mcg tablet Take 1 tablet by mouth once daily. buPROPion XL (WELLBUTRIN XL) 150 mg 24 hr tablet Take 2 tablets by mouth once daily. mirtazapine (REMERON) 30 mg tablet TAKE 1 TABLET AT BEDTIME ondansetron orally disintegrating (ZOFRAN ODT) 8 mg disintegrating tablet Take 1 tablet by mouth every 8 hours as needed for nausea/vomiting. gabapentin (NEURONTIN) 300 mg capsule Take 300 mg by mouth three times daily. escitalopram oxalate (LEXAPRO) 20 mg tablet Take 1 tablet by mouth once daily. tiZANidine HCl 4 mg capsule Take 4 mg by mouth three times daily as needed. zolpidem (AMBIEN) 10 mg Take 1 tablet by mouth at bedtime as needed for up to 30 days. for insomnia. diphenoxylate-atropine (LOMOTIL) 2.5-0.025 mg per tablet Take 1 tablet by mouth four times daily asneeded for Diarrhea for up to 5 days. No current facility-administered medications for this visit. Review of Systems Ht 154.9 cm (5' 1) Wt 82.1 kg (181 lb) BMI 34.20 kg/m Physical Exam: General: well developed, well nourished, female currently in no acute distress. Awake alert and oriented x3. Normal language HEENT: a traumatic, normocephalic. PERRL. EOMI. Mucous membranes moist Heart: Regular rate and rhythm. Normal s1s2. Lungs: normal respiratory effort. CTAB Abdomen: soft. Nondistended. Midline incision well-healed. No hernias noted. Mild tenderness to palpation in the lower abdomen Neuro: cranial nerves II-XII grossly intact. Normal range of motion of upper and lower extremitites. Gross sensory to light touch in tact in upper and lower extremities Skin: warm and well perfused. Assessment/Plan: ASSESSMENT/PLAN: 1. History of small bowel obstruction - ICD9: V12.79, ICD10: Z87.19 (primary diagnosis) 2. Abdominal pain, unspecified abdominal location - ICD9: 789.00, ICD10: R10.9 Difficult to say with the true etiology of her pain is. She had a CAT scan last week which I reviewed which was largely unremarkable, though there was mention that there was may be some thickening atthe small bowel anastomosis. I am going to order a small bowel series to evaluate the anastomosis to ensure that this has no obvious abnormalities which could be explaining some of her pain. I encouraged her to continue to stay hydrated. Diet as tolerated. Protein supplements I think still are important as she is recovering from a major operation. We will give her a call with the results of her study. - XR SMALL BOWEL SERIES Jaswant Moseley MD documented in this encounterRegency Hospital [facility]04-07-2022 NoteHNO ID: [id number] Author: Lelia Benavides RN Service: ? Author Type: Registered Nurse Type: Progress Notes Filed: 12/22/2021 11:23 AM Note Text: TRANSITIONAL CARE MANAGEMENT (TCM) COMMUNITY MONITORING PROGRAM - [place] Provider Action/FYI: SUMMARY: Pt discharged from [facility] on 12/20/2021. Admitted for: SBO Reached patient on home/cell phone. We discussed the following: General: To ED on 01/19 for vasovagal response SBO: Hasn't had a BM x 3 days. Has a call into Dr. Moseley. A little abdominal pain. Able to tolerate fluids, protein shakes, scrambled eggs, and applesauce Surgery follow-up: Seeing Dr. Moseley 12/26/2021 Home [facility]: [facility] PT/OT. Planning on visiting patient 12/26/2021 PCP follow-up: Seeing Dr. Dhaliwal 12/30/2021. After Visit Summary: Reviewed with patient. He/She verbalizes understanding and has no questions. Upcoming appts: Reviewed with patient. Medications: Reviewed with patient. Patient taking as prescribed. No refills needed at this time. Current needs: None at this time. TORRES Quick, RN Contact made with patient: Yes Hi my name is Lelia Benavides RN and I am calling from the [facility] on behalf of your PCP, Kentrell Dhaliwal II, MD I understand you were recently in the hospital so I am calling to check in with you to ensure you are feeling well now that you?re home. Do you mind if I ask you a few questions related to your hospital stay and well-being Yes Contact with patient post discharge, spoke to patient. Patient identified by name and . Do you feel your health is BETTER, WORSE, or the SAME since leaving the hospital? Better ACTION TAKEN: Patient indicated symptoms are better or same, no action required. Continue outreach. MEDICATIONS: Many patients have questions or concerns about their medications once they are home. Do you have any questions about taking your medications or which medication you should be on? No Do you need any medication refills at this time, including any of the medications you might take only when needed? No ACTION TAKEN: No action required For RNs or Pharmacy completing outreach ONLY, was a medication review completed? Yes SOCIAL: We would like to make sure you have what you need so that your basics needs are met - including your personal safety, food, housing and medications. Would you like to speak with a social work logistics team leader to help give you support for any of these needs? No It can be normal to feel anxious or down during a time like this. Would you like to talk to a mental health professional about how you have been feeling? No ACTION TAKEN: No action taken DISCHARGE INTRUCTIONS: Your discharge instructions / After Visit Summary (AVS) are important in guiding you through the recovery process. Do you have any questions related to your discharge instructions? No Do you have all the necessary equipment and supplies at home? Yes ACTION TAKEN: No action required Thank you for talking with me today. I would like to help you schedule a hospital follow-up virtual or telephone visit with your PCP. This is a great way for you to connect with your provider to ensure you have safely transitioned home. If you are agreeable, I will send your request to a director search marketing strategies who will contact and assist you with that appointment. This will give you an opportunity to ask any questions or address any concerns you may have with your PCP. Inform the patient that if they have any questions or concerns prior to that appointment, to call their PCP's office right away. ACTION TAKEN: No action required, patient already has an appointment scheduled. Your doctor would like us to remind you of the recommendations regarding the coronavirus (Covid19) outbreak: ? Avoid public places as much as possible. ? Avoid close contact (within 6 feet) with others you don't live with, especially if they are sick. ? Stay home if you are sick. ? Wash your hands regularly for at least 20 seconds with soap and water. ? Wear a cloth mask in public places to help reduce community spread. Do not go to your Doctor's office unless instructed to do so. For any non-emergency symptoms, call your Doctor's office to get instructions on how to manage (we might recommend a telephone or virtual visit). For emergency symptoms, proceed to Emergency Department as usual but inform them of cough and fever symptoms RIAZ if present (or call on the way if possible). Lelia Benavides [facility]04-07-2022 History of Present illness Narrative* Lelia Benavides RN - 12/22/2021 10:56 AM EDT TRANSITIONAL CARE MANAGEMENT (TCM) COMMUNITY MONITORING PROGRAM - [facility] Provider Action/FYI: SUMMARY: Pt discharged from [facility] on 12/20/2021. Admitted for: SBO Reached patient on home/cell phone. We discussed the following: General: To ED on 01/19 for vasovagal response SBO: Hasn't had a BM x 3 days. Has a call into Dr. Moseley. A little abdominal pain. Able to tolerate fluids, protein shakes, scrambled eggs, and applesauce Surgery follow-up: Seeing Dr. Moseley 12/26/2021 Home Care: [facility]. PT/OT. Planning on visiting patient 12/26/2021 PCP follow-up: Seeing Dr. Dhaliwal 12/30/2021. After Visit Summary: Reviewed with patient. He/She verbalizes understanding and has no questions. Upcoming appts: Reviewed with patient. Medications: Reviewed with patient. Patient taking as prescribed. No refills needed at this time. Current needs: None at this time. TORRES Quick, RN Contact made with patient: Yes Hi my name is Lelia Benavides RN and I am calling from the [facility] on behalf of your PCP, Kentrell Dhaliwal II, MD I understand you were recently in the hospital so I am callingto check in with you to ensure you are feeling well now that you re home. Do you mind if I ask you a few questions related to your hospital stay and well-being Yes Contact with patient post discharge, spoke to patient. Patient identified by name and . Do you feel your health is BETTER, WORSE, or the SAME since leaving the hospital? Better ACTION TAKEN: Patient indicated symptoms are better or same, no action required. Continue outreach. MEDICATIONS: Many patients have questions or concerns about their medications once they are home. Do you have any questions about taking your medications or which medication you should be on? No Do you need any medication refills at this time, including any of the medications you might take only when needed? No ACTION TAKEN: No action required For RNs or Pharmacy completing outreach ONLY, was a medication review completed? Yes SOCIAL: We would like to make sure you have what you need so that your basics needs are met - including your personal safety, food, housing and medications. Would you like to speak with a social work logistics team leader to help give you support for any of these needs? No It can be normal to feel anxious or down during a time like this. Would you like to talk to a mental health professional about how you have been feeling? No ACTION TAKEN: No action taken DISCHARGE INTRUCTIONS: Your discharge instructions / After Visit Summary (AVS) are important in guiding you through the recovery process. Do you have any questions related to your discharge instructions? No Do you have all the necessary equipment and supplies at home? Yes ACTION TAKEN: No action required Thank you for talking with me today. I would like to help you schedule a hospital follow-up virtualor telephone visit with your PCP. This is a great way for you to connect with your provider to ensure you have safely transitioned home. If you are agreeable, I will send your request to a director search marketing strategies who will contact and assist you with that appointment. This will give you an opportunity to ask any questions or address any concerns you may have with your PCP. Inform the patient that if they have any questions or concerns prior to that appointment, to call their PCP's office right away. ACTION TAKEN: No action required, patient already has an appointment scheduled. Your doctor would like us to remind you of the recommendations regarding the coronavirus (Covid19) outbreak: Avoid public places as much as possible. Avoid close contact (within 6 feet) with others you don't live with, especially if they are sick. Stay home if you are sick. Wash your hands regularly for at least 20 seconds with soap and water. Wear a cloth mask in public places to help reduce community spread. Do not go to your Doctor's office unless instructed to do so. For any non- emergency symptoms, call your Doctor's office to get instructions on how to manage (we might recommend a telephone or virtualvisit). For emergency symptoms, proceed to Emergency Department as usual but inform them of cough and fever symptoms RIAZ if present (or call on the way if possible). Lelia Benavides RN * Lelia Benavides RN - 12/21/2021 1:27 PM EDT TRANSITIONAL CARE MANAGEMENT (TCM) COMMUNITY MONITORING PROGRAM - [facility]SA Provider Action/FYI: SUMMARY: Pt discharged from [facility] on 12/20/2021. Admitted for: SBO Contact made with patient: No - next outreach attempt will be on next Message left on cell phone/telephone answering device requesting patient return my call ([phone]). Outreach ended Lelia Benavides RN documented in this encounterRegency Hospital [facility]04-06-2022 Miscellaneous Notes* Telephone Encounter - Denita Thomas MA - 12/21/2021 4:25 PM EDT Pharmacy faxed requesting the following refill Refill(s) Requested: Pending Prescriptions Disp Refills ESOMEPRAZOLE MAGNESIUM 20 MG CAPSULE,DELAYED RELEASE 90 capsule 2 Sig: TAKE 1 CAPSULE BY MOUTH DAILY (6 AM) GENNA: Yes ALLERGIES Allergen Reactions Latex Anaphylaxis Codeine Diarrhea Compazine [Prochlor* Myalgia Levaquin [Levofloxa* Diarrhea Omnicef [Cefdinir] Diarrhea Prednisone GI Upset Drixbsv-Pom-Auu Red* Diarrhea Sulfa (Sulfonamide * Other: See Comments Leg pain (home) [phone] (cell) Last Office Visit Date: 08/30/2021 Last [facility] Visit: Visit date not found Future Appointment: 12/30/2021 The patients preferred pharmacy has been captured for this encounter? yes Request is for script(s) to be escript to pharmacy. Denita Thomas MA documented in this encounterRegency Hospital [facility]04-06-2022 NoteHNO ID: [id number] Author: Lelia Benavides RN Service: ? Author Type: Registered Nurse Type: Progress Notes Filed: 12/22/2021 11:23 AM Note Text: TRANSITIONAL CARE MANAGEMENT (TCM) COMMUNITY MONITORING PROGRAM - [facility]SA Provider Action/FYI: SUMMARY: Pt discharged from [facility] on 12/20/2021. Admitted for: SBO Contact made with patient: No - next outreach attempt will be on next Message left on cell phone/telephone answering device requesting patient return my call ([phone]). Outreach ended Lelia Benavides [facility]04-06-2022 NotePatient Outreach (AGA) KAITLYN ESCOBAR I ([id number]) 1950 F Date Time Provider Department 12/21/21 LELIA BENAVIDES During your visit today, we recorded the following information about you: Lelia Benavides RN 12/22/2021 11:23 AM Signed TRANSITIONAL CARE MANAGEMENT (TCM) COMMUNITY MONITORING PROGRAM - [place] Provider Action/FYI: SUMMARY: Pt discharged from [facility] on 12/20/2021. Admitted for: SBO Contact made with patient: No - next outreach attempt will be on next Message left on cell phone/telephone answering device requesting patient return my call ([phone]). Outreach ended DAVID Quick RN 12/22/2021 11:23 AM Signed TRANSITIONAL CARE MANAGEMENT (TCM) COMMUNITY MONITORING PROGRAM - [place] Provider Action/FYI: SUMMARY: [facility]. Admitted for: SBO Reached patient on home/cell phone. We discussed the following: General: To ED on 01/19 for vasovagal response SBO: Hasn't had a BM x 3 days. Has a call into Dr. Moseley. A little abdominal pain. Able to tolerate fluids, protein shakes, scrambled eggs, and applesauce Surgery follow-up: Seeing Dr. Moseley 12/26/2021 Home Care: [facility]. PT/OT. Planning on visiting patient 12/26/2021 PCP follow-up: Seeing Dr. Dhaliwal 12/30/2021. After Visit Summary: Reviewed with patient. He/She verbalizes understanding and has no questions. Upcoming appts: Reviewed with patient. Medications: Reviewed with patient. Patient taking as prescribed. No refills needed at this time. Current needs: None at this time. TORRES Quick, RN Contact made with patient: Yes Hi my name is Lelia Benavides RN and I am calling from the [facility] on behalf of your PCP, Kentrell Dhaliwal II, MD I understand you were recently in the hospital so I am calling to check in with you to ensure you are feeling well now that you?re home. Do you mind if I ask you a few questions related to your hospital stay and well-being Yes Contact with patient post discharge, spoke to patient. Patient identified by name and . Do you feel your health is BETTER, WORSE, or the SAME since leaving the hospital? Better ACTION TAKEN: Patient indicated symptoms are better or same, no action required. Continue outreach. MEDICATIONS: Many patients have questions or concerns about their medications once they are home. Do you have any questions about taking your medications or which medication you should be on? No Do you need any medication refills at this time, including any of the medications you might take only when needed? No ACTION TAKEN: No action required For RNs or Pharmacy completing outreach ONLY, was a medication review completed? Yes SOCIAL: We would like to make sure you have what you need so that your basics needs are met - including your personal safety, food, housing and medications. Would you like to speak with a social work logistics team leader to help give you support for any of these needs? No It can be normal to feel anxious or down during a time like this. Would you like to talk to a mental health professional about how you have been feeling? No ACTION TAKEN: No action taken DISCHARGE INTRUCTIONS: Your discharge instructions / After Visit Summary (AVS) are important in guiding you through the recovery process. Do you have any questions related to your discharge instructions? No Do you have all the necessary equipment and supplies at home? Yes ACTION TAKEN: No action required Thank you for talking with me today. I would like to help you schedule a hospital follow-up virtual or telephone visit with your PCP. This is a great way for you to connect with your provider to ensure you have safely transitioned home. If you are agreeable, I will send your request to a director search marketing strategies who will contact and assist you with that appointment. This will give you an opportunity to ask any questions or address any concerns you may have with your PCP. Inform the patient that if they have any questions or concerns prior to that appointment, to call their PCP's office right away. ACTION TAKEN: No action required, patient already has an appointment scheduled. Your doctor would like us to remind you of the recommendations regarding the coronavirus (Covid19) outbreak: ? Avoid public places as much as possible. ? Avoid close contact (within 6 feet) with others you don't live with, especially if they are sick. ? Stay home if you are sick. ? Wash your hands regularly for at least 20 seconds with soap and water. ? Wear a cloth mask in public places to help reduce community spread. Do not go to your Doctor's office unless instructed to do so. For any non-emergency symptoms, call your Doctor's office to get instructions on how to manage (we might recommend a telephone or virtual v (more content not included)...[facility]04-05-2022 History of Present illness Narrative* Jaswant Moseley MD - 12/20/2021 2:34 PM EDT H & P Date: December 20, 2021 Chief Complaint: follow up HPI: Kaitlyn Escobar is a 71 year old female who presents today for follow-up. Patient known to me from prior laparotomy and small bowel resection for a small bowel obstruction. She had postoperatively either an intra-abdominal leak from her anastomosis or an abscess from the skin tract into the abdomen. She was placed on TPN for period of time for bowel rest. She has been recovering at a nursing facility. She is getting quite frustrated with her time at the nursing facility. She feels like they arenot paying good attention to having her TPN infusing continuously. Has had a couple bowel movements. Last week she had a trial of clear liquids and seemed to do okay with it. Having some intermittent nausea and intermittent abdominal cramps. No fevers or chills. We reviewed her CT scan that she hadperformed about a week and a half ago. ALLERGIES Allergen Reactions Latex Anaphylaxis Codeine Diarrhea Compazine [Prochlor* Myalgia Levaquin [Levofloxa* Diarrhea Omnicef [Cefdinir] Diarrhea Prednisone GI Upset Arnmqxc-Lwg-Tly Red* Diarrhea Sulfa (Sulfonamide * Other: See Comments Leg pain PAST MEDICAL HISTORY Diagnosis Date Anxiety and depression Diabetes (HCC) Drug-induced Parkinson's disease (HCC) GERD (gastroesophageal reflux disease) History of DVT (deep vein thrombosis) IBS (irritable bowel syndrome) Seizures (HCC) Tremor PAST SURGICAL HISTORY Procedure Laterality Date CHOLECYSTECTOMY HX HYSTERECTOMY HX ROTATOR CUFF REPAIR Left TONSILLECTOMY HX WRIST SURGERY HX Right FAMILY HISTORY Problem Relation Age of Onset Emphysema Mother Heart disease Father Social History Tobacco Use Smoking status: Never Smoker Smokeless tobacco: Never Used Vaping Use Vaping Use: Never used Substance Use Topics Alcohol use: Not Currently Drug use: Never Current Outpatient Medications Medication Sig ondansetron orally disintegrating (ZOFRAN ODT) 4 mg disintegrating tablet Take 1 tablet by mouth every 8 hours as needed for nausea/vomiting for up to 10 days. apixaban (ELIQUIS) 5 mg tab(s) Take 1 tablet by mouth twice daily. zolpidem (AMBIEN) 10 mg Take 1 tablet by mouth at bedtime as needed for up to 30 days. for insomnia. ondansetron (ZOFRAN) 8 mg tablet Take 1 tablet by mouth every 8 hours as needed for nausea/vomiting. levothyroxine (SYNTHROID) 50 mcg tablet Take 1 tablet by mouth once daily. buPROPion XL (WELLBUTRIN XL) 150 mg 24 hr tablet Take 2 tablets by mouth once daily. mirtazapine (REMERON) 30 mg tablet TAKE 1 TABLET AT BEDTIME ondansetron orally disintegrating (ZOFRAN ODT) 8 mg disintegrating tablet Take 1 tablet by mouth every 8 hours as needed for nausea/vomiting. gabapentin (NEURONTIN) 300 mg capsule Take 300 mg by mouth three times daily. escitalopram oxalate (LEXAPRO) 20 mg tablet Take 1 tablet by mouth once daily. diphenoxylate-atropine (LOMOTIL) 2.5-0.025 mg per tablet Take 1 tablet by mouth four times daily asneeded for Diarrhea for up to 5 days. esomeprazole (NEXIUM) 20 mg capsule Take 1 capsule by mouth DAILY (6 AM). tiZANidine HCl 4 mg capsule Take 4 mg by mouth three times daily as needed. No current facility-administered medications for this visit. Review of Systems There were no vitals taken for this visit. Physical Exam: General: well developed, well nourished, female in no acute distress. Alert and oriented x3. Normallanguage HEENT: a traumatic, normocephalic. PERRL. EOMI. Mucous membranes moist Heart: Regular rate and rhythm. Normal s1s2. Lungs: normal respiratory effort. CTAB Abdomen: soft. Nondistended. Nontender to palpation. Incision is well-healed. Neuro: cranial nerves II-XII grossly intact. Normal range of motion of upper and lower extremitites. Gross sensory to light touch in tact in upper and lower extremities Skin: warm and well perfused. Assessment/Plan: ASSESSMENT/PLAN: 1. History of small bowel obstruction - ICD9: V12.79, ICD10: Z87.19 (primary diagnosis) 2. On total parenteral nutrition (TPN) - ICD9: V49.89, ICD10: Z78.9 3. Post-operative state - ICD9: V45.89, ICD10: Z98.890 I think overall she is recovering ok. CT report without ongoing intra-abdominal fluid collection, no overt bowel obstructive process. She is absolutely refusing to go back for an extended period to her nursing facility. I think that since she is tolerating clears we will go ahead and discontinue her TPN. Instructed her on a daily protein shake supplement and easing into regular liquids and regular diet. I like to see her again in 1 week to reassess how she is doing. She voices understanding. Jaswant Moseley MD documented in [facility] encounterReg[facility]22 NoteHNO ID: [id number] Author: Lelia Benavides RN Service: ? Author Type: Registered Nurse Type: Progress Notes Filed: 12/16/2021 3:21 PM Note Text: TRANSITION CARE MANAGEMENT (TCM) FOLLOW-UP NOTE Provider Action/FYI Patient identified by name and date of : YES Spoke to Monika Dent Summary: 12/15/2021: Message left for Marine-requesting return call regarding discharge plan. 12/16/2021: Spoke to Lisa. Mccoy to remain at facility x 7 more days. [place] Closer plan for next outreach: Will follow up 12/23/2021 Signature Lelia Benavides RN [facility] 15[facility]03[facility] NotePatient Outreach (AGACM) KAITLYN ESCOBAR I ([id number]) 1950 F Date Time Provider Department 12/15/21 LELIA BENAVIDES [facility] During your visit today, we recorded the following information about you: Lelia Benavides RN 12/16/2021 3:21 PM Signed TRANSITION CARE MANAGEMENT (TCM) FOLLOW-UP NOTE Provider Action/FYI Patient identified by name and date of : YES Spoke to Monika Dent Summary: 12/15/2021: Message left for Marine-requesting return call regarding discharge plan. 12/16/2021: Spoke to Marine. Ptient to remain at facility x 7 more days. [place] Closer plan for next outreach: Will follow up 12/23/2021 Signature Lelia Benavides RN December 15, 2021 Allergies As of Date: 12/15/2021 Noted Allergy Reaction LATEX 06/22/2020 10 - Anaphylaxis CODEINE 06/22/2020 6 - Diarrhea COMPAZINE (PROCHLORPERAZINE) 06/22/2020 17 - Myalgia LEVAQUIN (LEVOFLOXACIN) 06/22/2020 6 - Diarrhea OMNICEF (CEFDINIR) 06/22/2020 6 - Diarrhea PREDNISONE 08/30/2021 8 - GI Upset [id number] REDUCTASE INHIBIT*06/22/2020 6 - Diarrhea SULFA (SULFONAMIDE ANTIBIOTICS) 06/15/2020 14 - Other: See Comments Comments: Leg pain Date Reviewed: 12/14/2021 Reviewed by: María Kruse MA - Fully Assessed Reason for Visit: Transition Of Care [4074] Cmt: SNF Update Prescriptions as of 12/16/2021 - apixaban (ELIQUIS) 5 mg tab(s) Take 1 tablet by mouth twice daily. - zolpidem (AMBIEN) 10 mg Take 1 tablet by mouth at bedtime as needed for up to 30 days. for insomnia. - ondansetron (ZOFRAN) 8 mg tablet Take 1 tablet by mouth every 8 hours as needed for nausea/vomiting. - levothyroxine (SYNTHROID) 50 mcg tablet Take 1 tablet by mouth once daily. - buPROPion XL (WELLBUTRIN XL) 150 mg 24 hr tablet Take 2 tablets by mouth once daily. - mirtazapine (REMERON) 30 mg tablet TAKE 1 TABLET AT BEDTIME - ondansetron orally disintegrating (ZOFRAN ODT) 8 mg disintegrating tablet Take 1 tablet by mouth every 8 hours as needed for nausea/vomiting. - gabapentin (NEURONTIN) 300 mg capsule Take 300 mg by mouth three times daily. - escitalopram oxalate (LEXAPRO) 20 mg tablet Take 1 tablet by mouth once daily. - diphenoxylate-atropine (LOMOTIL) 2.5-0.025 mg per tablet Take 1 tablet by mouth four times daily as needed for Diarrhea for up to 5 days. - esomeprazole (NEXIUM) 20 mg capsule Take 1 capsule by mouth DAILY (6 AM). - tiZANidine HCl 4 mg capsule Take 4 mg by mouth three times daily as needed. Problem List As Of Date 12/15/2021 Noted Resolved Parkinson's disease (HCC) [G20] 06/22/2020 Irritable bowel syndrome with both constipation*06/22/2020 Subclinical hypothyroidism [E03.8] 06/22/2020 History of DVT (deep vein thrombosis) [Z86.718] 06/22/2020 Prediabetes [R73.03] 06/22/2020 GERD without esophagitis [K21.9] 06/22/2020 Mild episode of recurrent major depressive diso*06/22/2020 MOODY (generalized anxiety disorder) [F41.1] 06/22/2020 Chronic insomnia [F51.04] 06/22/2020 GERD (gastroesophageal reflux disease) [K21.9] Drug-induced Parkinson's disease (HCC) [G21.19] Diabetes (HCC) [E11.9] Anxiety and depression [F41.9, F32.A] Hypothyroidism, acquired [E03.9] 08/30/2021 Encounter Status:Closed by LELIA BENAVIDES on 12/16/21[facility]03-31-2022 History of Present illness Narrative* Lelia Benavides RN - 12/15/2021 1:25 PM EDT TRANSITION CARE MANAGEMENT (TCM) FOLLOW-UP NOTE Provider Action/FYI Patient identified by name and date of : YES Spoke to Monika Dent Summary: 12/15/2021: Message left for Marine-requesting return call regarding discharge plan. 12/16/2021: Spoke to Marine. Ptient to remain at facility x 7 more days. [place] Closer plan for next outreach: Will follow up 12/23/2021 Signature Lelia Benavides RN December 15, 2021 documented in this encounterReg[facility]03-31-2022 History of Present illness Narrative* Rosanna Lilly DO - 12/15/2021 12:31 PM EDT HPI Kaitlyn Escobar is a 71 year old female that is a patient of Dr. Moseley. She has a complicated history with a frozen abdomen obstruction requiring exploratory laparotomy. This was further complicatedby possible intra-abdominal abscess versus anastomotic leak. She has been on TPN she had a repeat CT scan on 12/06 which does not show any intra-abdominal abscess and small bowel distention is improved on this study. Today she is very tearful and wishes to be discharged from her nursing facility andwould like to do TPN at home. [facility] that her family has been bringing her in regular food. I asked her about this and she does endorse nausea with this but the nausea ov ruchi has improved. Would also like her PICC line assessed as there was some blood under the banadage noted. Current Outpatient Medications Medication Sig ALPRAZolam (XANAX) 1 mg tablet TAKE 1 TABLET BY MOUTH TWICE DAILY apixaban (ELIQUIS) 5 mg tab(s) Take 1 tablet by mouth twice daily. ondansetron (ZOFRAN) 8 mg tablet Take 1 tablet by mouth every 8 hours as needed for nausea/vomiting. levothyroxine (SYNTHROID) 50 mcg tablet Take 1 tablet by mouth once daily. buPROPion XL (WELLBUTRIN XL) 150 mg 24 hr tablet Take 2 tablets by mouth once daily. mirtazapine (REMERON) 30 mg tablet TAKE 1 TABLET AT BEDTIME ondansetron orally disintegrating (ZOFRAN ODT) 8 mg disintegrating tablet Take 1 tablet by mouth every 8 hours as needed for nausea/vomiting. escitalopram oxalate (LEXAPRO) 20 mg tablet Take 1 tablet by mouth once daily. esomeprazole (NEXIUM) 20 mg capsule Take 1 capsule by mouth DAILY (6 AM). tiZANidine HCl 4 mg capsule Take 4 mg by mouth three times daily as needed. zolpidem (AMBIEN) 10 mg Take 1 tablet by mouth at bedtime as needed for up to 30 days. for insomnia. gabapentin (NEURONTIN) 300 mg capsule Take 300 mg by mouth three times daily. (Patient not taking: Reported on 12/14/2021) diphenoxylate-atropine (LOMOTIL) 2.5-0.025 mg per tablet Take 1 tablet by mouth four times daily asneeded for Diarrhea for up to 5 days. No current facility-administered medications for this visit. ALLERGIES Allergen Reactions Latex Anaphylaxis Codeine Diarrhea Compazine [Prochlor* Myalgia Levaquin [Levofloxa* Diarrhea Omnicef [Cefdinir] Diarrhea Prednisone GI Upset Axdpmog-Uzj-Xdo Red* Diarrhea Sulfa (Sulfonamide * Other: See Comments Leg pain Social History Tobacco Use Smoking status: Never Smoker Smokeless tobacco: Never Used Vaping Use Vaping Use: Never used Substance Use Topics Alcohol use: Not Currently Drug use: Never PAST MEDICAL HISTORY Diagnosis Date Anxiety and depression Diabetes (HCC) Drug-induced Parkinson's disease (HCC) GERD (gastroesophageal reflux disease) History of DVT (deep vein thrombosis) IBS (irritable bowel syndrome) Seizures (HCC) Tremor PAST SURGICAL HISTORY Procedure Laterality Date CHOLECYSTECTOMY HX HYSTERECTOMY HX ROTATOR CUFF REPAIR Left TONSILLECTOMY HX WRIST SURGERY HX Right FAMILY HISTORY Problem Relation Age of Onset Emphysema Mother Heart disease Father REVIEW OF SYSTEMS General: No weight loss, malaise or fevers HEENT: Negative for frequent or significant headaches Neck: Negative for lumps, goiter, pain and significant neck swelling Respiratory: Negative for cough, hemoptysis, wheezing, Cardiovascular: Negative for chest pain, leg swelling, GI: See HPI : No history of dysuria, frequency or incontinence Musculoskeletal: Negative for joint pain or swelling, back pain or muscle pain Skin: Negative for lesions, rash, and itching Psych: Negative for sleep disturbance, mood disorder and recent psychosocial stressors Hematology/Lymphology: Negative for prolonged bleeding, bruising easily or swollen nodes Endocrine: Negative for cold or heat intolerance, polyuria, polydipsia and goiter Neuro: No history of headaches, syncope, paralysis, seizures or tremors PHYSICAL EXAM Ht 5' 1 (1.55m) Wt 181 lb (82.1kg) BMI 34.22 kg/(m^2). General Appearance: Well appearing, alert, in no acute distress, well-hydrated, well nourished. Skin: Left arm PICC line in place minimal redness around the suture insertion site. No evidence of surrounding cellulitis. Small blood tinged drainage under dressing at insertion site. No active bleeding Head: Normocephalic, Neck: Supple, Lungs: Unlabored on room air Heart: RRR without murmur, gallop, or rubs. No ectopy Extremities: No deformities, edema, Neuro: Gait normal. Abdomen: Abdomen soft, minimal TTP Midline incision healing with small opening at inferior aspect. No signs of cellulitis . Assessment ASSESSMENT/PLAN: 1. History of small bowel obstruction - ICD9: V12.79, ICD10: Z87.19 (primary diagnosis) - Discussed that she would need to have insurance authorization for TPN at home which is hard to have covered, As she is feeling better and Ct scan is improved I will allow her to have sips of clears. She may follow up in one week to see if diet will be able to be advanced further. 2. On total parenteral nutrition (TPN) - ICD9: V49.89, ICD10: Z78.9 - Continue TPN until able to wean Rosanna Lilly DO DATE: 12/15/21 TIME: 12:31 PM documented in this encounterRegency Hospital [facility]03-21-2022 Miscellaneous Notes* Telephone Encounter - Pamela Gamino - 12/05/2021 5:16 PM EDT Noted, thank you. This was probably done by [facility] since it is [employer]. * Telephone Encounter - María Kruse MA - 12/05/2021 4:54 PM EDT Spoke with Marine from [facility], CT abdomen/pelvis w ivcon approved. Authorization # [id number] María Kruse MA * Telephone Encounter - María Krues MA - 12/05/2021 3:07 PM EDT Patient is scheduled for a CT abd/pelvis with ivcon 12/26/21 at 10:30am. Patient has [employer] insurance and needs an auth done. María Kruse MA documented in this encounterRegency Hospital [facility]03-21-2022 NoteHNO ID: [id number] Author: Lelia Benavides RN Service: ? Author Type: Registered Nurse Type: Progress Notes Filed: 12/05/2021 12:13 PM Note Text: TRANSITION CARE MANAGEMENT (TCM) FOLLOW-UP NOTE Provider Action/FYI Patient identified by name and date of : YES Spoke to [facility] Summary: Spoke to Marine at [facility]. Patient remains at facility. Anticipated discharge date 12/15/2021. [place] Closer plan for next outreach: Will follow up at discharge Signature Lelia Benavides RN [facility] 05[facility]03[facility] NotePatient Outreach (AGACM) KAITLYN ESCOBAR I ([id number]) 1950 F Date Time Provider Department 12/05/21 LELIA BENAVIDES [facility] During your visit today, we recorded the following information about you: Lelia Benavides RN 12/05/2021 12:13 PM Signed TRANSITION CARE MANAGEMENT (TCM) FOLLOW-UP NOTE Provider Action/FYI Patient identified by name and date of : YES Spoke to [facility] Summary: Spoke to Marine at [facility]. Patient remains at facility. Anticipated discharge date 12/15/2021. [place] Closer plan for next outreach: Will follow up at discharge Signature Lelia Benavides RN December 05, 2021 Allergies As of Date: 12/05/2021 Noted Allergy Reaction DILAUDID (HYDROMORPHONE) 06/22/2020 12 - Shortness of Breath Comments: quit breathing LATEX 06/22/2020 10 - Anaphylaxis CODEINE 06/22/2020 6 - Diarrhea COMPAZINE (PROCHLORPERAZINE) 06/22/2020 17 - Myalgia LEVAQUIN (LEVOFLOXACIN) 06/22/2020 6 - Diarrhea OMNICEF (CEFDINIR) 06/22/2020 6 - Diarrhea PREDNISONE 08/30/2021 8 - GI Upset WNEHBEC-CSX-UBO REDUCTASE INHIBIT*06/22/2020 6 - Diarrhea SULFA (SULFONAMIDE ANTIBIOTICS) 06/15/2020 14 - Other: See Comments Comments: Leg pain Date Reviewed: 08/30/2021 Reviewed by: Kentrell Dhaliwal II, MD - Fully Assessed Reason for Visit: Transition Of Care [4074] Cmt: SNF Update Prescriptions as of 12/05/2021 - iv contrast (will be provided with radiology test) CT ABD/PEL -Inject, intravenously, once for 1 dose.No IV access, insert saline lock prior to the beginning of sedation, infusion, injection of imaging exam. Discontinue saline lock post exam. If Pt. has a central line or IVAD, may access for administration according to line specific nursing protocol. Once exam is complete flush line and de-access according to line specific nursing protocol in the CT contrast administration guidelines link. - enteric contrast (will be provided with radiology test) For CT ABD/PEL W IVCON Routine order Administer, As Directed One Time Only, via Oral, Rectal, both Oral and Rectal, Enteric Tube, Stoma or Indwelling Catheter, Enteric Contrast as designated per enteric contrast guidelines - ALPRAZolam (XANAX) 1 mg tablet TAKE 1 TABLET BY MOUTH TWICE DAILY - apixaban (ELIQUIS) 5 mg tab(s) Take 1 tablet by mouth twice daily. - zolpidem (AMBIEN) 10 mg Take 1 tablet by mouth at bedtime as needed for up to 30 days. for insomnia. - ondansetron (ZOFRAN) 8 mg tablet Take 1 tablet by mouth every 8 hours as needed for nausea/vomiting. - levothyroxine (SYNTHROID) 50 mcg tablet Take 1 tablet by mouth once daily. - buPROPion XL (WELLBUTRIN XL) 150 mg 24 hr tablet Take 2 tablets by mouth once daily. - mirtazapine (REMERON) 30 mg tablet TAKE 1 TABLET AT BEDTIME - ondansetron orally disintegrating (ZOFRAN ODT) 8 mg disintegrating tablet Take 1 tablet by mouth every 8 hours as needed for nausea/vomiting. - gabapentin (NEURONTIN) 300 mg capsule Take 300 mg by mouth three times daily. - escitalopram oxalate (LEXAPRO) 20 mg tablet Take 1 tablet by mouth once daily. - diphenoxylate-atropine (LOMOTIL) 2.5-0.025 mg per tablet Take 1 tablet by mouth four times daily as needed for Diarrhea for up to 5 days. - esomeprazole (NEXIUM) 20 mg capsule Take 1 capsule by mouth DAILY (6 AM). - tiZANidine HCl 4 mg capsule Take 4 mg by mouth three times daily as needed. 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 Author Type: Registered Nurse Type: Progress Notes Filed: 11/25/2021 2:07 PM Note Text: TRANSITION CARE MANAGEMENT (TCM) DISCHARGE TO POST ACUTE FACILITY POST ACUTE TRANSFER SUMMARY: -Pt discharged from [place] on 11/24/2021. -Post Acute Facility Admitted to [facility] -Admitted for:SBO Will follow at discharge. TORRES Quick, RN [phone]03-11-2022 NotePatient Outreach (AGA) KAITLYN ESCOBAR I ([id number]) 1950 F Date Time Provider Department 11/25/21 LELIA BENAVIDES During your visit today, we recorded the following information about you: Lelia Benavides RN 11/25/2021 2:07 PM Signed TRANSITION CARE MANAGEMENT (TCM) DISCHARGE TO POST ACUTE FACILITY POST ACUTE TRANSFER SUMMARY: -Pt discharged from [place] on 11/24/2021. -Post Acute Facility Admitted to [facility] -Admitted for:SBO Will follow at discharge. TORRES Quick, RN [phone] Allergies As of Date: 11/25/2021 Noted Allergy Reaction DILAUDID (HYDROMORPHONE) 06/22/2020 12 - Shortness of Breath Comments: quit breathing LATEX 06/22/2020 10 - Anaphylaxis CODEINE 06/22/2020 6 - Diarrhea COMPAZINE (PROCHLORPERAZINE) 06/22/2020 17 - Myalgia LEVAQUIN (LEVOFLOXACIN) 06/22/2020 6 - Diarrhea OMNICEF (CEFDINIR) 06/22/2020 6 - Diarrhea PREDNISONE 08/30/2021 8 - GI Upset INMZFME-UNV-AMW REDUCTASE INHIBIT*06/22/2020 6 - Diarrhea SULFA (SULFONAMIDE ANTIBIOTICS) 06/15/2020 14 - Other: See Comments Comments: Leg pain Date Reviewed: 08/30/2021 Reviewed by: Kentrell Dhaliwal II, MD - Fully Assessed Reason for Visit: Transition Of Care [4074] Cmt: SNF Update Prescriptions as of 11/25/2021 - ALPRAZolam (XANAX) 1 mg tablet TAKE 1 TABLET BY MOUTH TWICE DAILY - apixaban (ELIQUIS) 5 mg tab(s) Take 1 tablet by mouth twice daily. - zolpidem (AMBIEN) 10 mg Take 1 tablet by mouth at bedtime as needed for up to 30 days. for insomnia. - ondansetron (ZOFRAN) 8 mg tablet Take 1 tablet by mouth every 8 hours as needed for nausea/vomiting. - levothyroxine (SYNTHROID) 50 mcg tablet Take 1 tablet by mouth once daily. - buPROPion XL (WELLBUTRIN XL) 150 mg 24 hr tablet Take 2 tablets by mouth once daily. - mirtazapine (REMERON) 30 mg tablet TAKE 1 TABLET AT BEDTIME - ondansetron orally disintegrating (ZOFRAN ODT) 8 mg disintegrating tablet Take 1 tablet by mouth every 8 hours as needed for nausea/vomiting. - gabapentin (NEURONTIN) 300 mg capsule Take 300 mg by mouth three times daily. - escitalopram oxalate (LEXAPRO) 20 mg tablet Take 1 tablet by mouth once daily. - diphenoxylate-atropine (LOMOTIL) 2.5-0.025 mg per tablet Take 1 tablet by mouth four times daily as needed for Diarrhea for up to 5 days. - esomeprazole (NEXIUM) 20 mg capsule Take 1 capsule by mouth DAILY (6 AM). - tiZANidine HCl 4 mg capsule Take 4 mg by mouth three times daily as needed. 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 Author Type: Physician Type: Progress Notes Filed: 08/30/2021 10:33 PM Note Text: Kentrell Dhaliwal II, MD [address], [address] [place] [id number] NOEMI Escobar is a 71 year old female who presents with F/U 3 Month, Fatigue, Shortness of Breath, and Depression. HPI The patient is in today to follow-up her problems including diabetes, anxiety, depression and other issues. She states she is having a lot of stress with dealing with her daughter and finances. She states that her anxiety and depression were helped somewhat initially with the medication but the dog a little bit worse. She is also having a lot of trouble sleeping, both in getting to sleep and then waking up. She did have blood work done and it did reveal that her thyroid was underactive with Synthroid dose being inadequate to keep her TSH normal Review of Systems Constitutional: Positive for fatigue. Negative for activity change, appetite change, chills, diaphoresis, fever and unexpected weight change. HENT: Negative for congestion, dental problem, drooling, ear discharge, ear pain, facial swelling, hearing loss, mouth sores, nosebleeds, postnasal drip, rhinorrhea, sinus pressure, sinus pain, sneezing, sore throat, tinnitus, trouble swallowing and voice change. Eyes: Negative for discharge, redness and visual disturbance. Respiratory: Negative for apnea, cough, choking, chest tightness, shortness of breath, wheezing and stridor. Cardiovascular: Negative for chest pain, palpitations and leg swelling. Gastrointestinal: Negative for abdominal distention, abdominal pain, blood in stool, constipation, diarrhea, nausea and vomiting. Endocrine: Negative for cold intolerance, heat intolerance, polydipsia, polyphagia and polyuria. Genitourinary: Negative for decreased urine volume, difficulty urinating, dysuria, enuresis, frequency, hematuria and urgency. Musculoskeletal: Negative for arthralgias, gait problem and myalgias. Skin: Negative for color change, pallor, rash and wound. Allergic/Immunologic: Negative for environmental allergies. Neurological: Negative for dizziness, tremors, syncope, facial asymmetry, speech difficulty, weakness, light-headedness, numbness and headaches. Hematological: Negative for adenopathy. Does not bruise/bleed easily. Psychiatric/Behavioral: Positive for dysphoric mood and sleep disturbance. Negative for agitation, behavioral problems, confusion, decreased concentration, hallucinations, self-injury and suicidal ideas. The patient is nervous/anxious. The patient is not hyperactive. PAST MEDICAL HISTORY Diagnosis Date - Anxiety and depression - Diabetes (HCC) - Drug-induced Parkinson's disease (HCC) - GERD (gastroesophageal reflux disease) - History of DVT (deep vein thrombosis) - IBS (irritable bowel syndrome) - Seizures (HCC) - Tremor PAST SURGICAL HISTORY Procedure Laterality Date - CHOLECYSTECTOMY HX - HYSTERECTOMY HX - ROTATOR CUFF REPAIR Left - TONSILLECTOMY HX - WRIST SURGERY HX Right Social History Tobacco Use - Smoking status: Never Smoker - Smokeless tobacco: Never Used Vaping Use - Vaping Use: Never used Substance Use Topics - Alcohol use: Not Currently - Drug use: Never FAMILY HISTORY Problem Relation Age of Onset - Emphysema Mother - Heart disease Father The ROS, medical, surgical, family, and social history were reviewed by Kentrell Dhaliwal II, MD ALLERGIES Allergen Reactions - Dilaudid [Hydromorp* Shortness of Breath quit breathing - Latex Anaphylaxis - Codeine Diarrhea - Compazine [Prochlor* Myalgia - Levaquin [Levofloxa* Diarrhea - Omnicef [Cefdinir] Diarrhea - Prednisone GI Upset - Jzufumf-Xdp-[place] Red* Diarrhea - Sulfa (Sulfonamide * Other: See Comments Leg pain Current Outpatient Medications Medication Sig - levothyroxine (SYNTHROID) 50 mcg tablet Take 1 tablet by mouth once daily. - buPROPion XL (WELLBUTRIN XL) 150 mg 24 hr tablet Take 2 tablets by mouth once daily. - ALPRAZolam (XANAX) 1 mg tablet TAKE 1 TABLET BY MOUTH TWICE DAILY - mirtazapine (REMERON) 30 mg tablet TAKE 1 TABLET AT BEDTIME - ondansetron orally disintegrating (ZOFRAN ODT) 8 mg disintegrating tablet Take 1 tablet by mouth every 8 hours as needed for nausea/vomiting. - gabapentin (NEURONTIN) 300 mg capsule Take 300 mg by mouth three times daily. - escitalopram oxalate (LEXAPRO) 20 mg tablet Take 1 tablet by mouth once daily. - diphenoxylate-atropine (LOMOTIL) 2.5-0.025 mg per tablet Take 1 tablet by mouth four times daily as needed for Diarrhea for up to 5 days. - apixaban (ELIQUIS) 5 mg tab(s) Take 1 tablet by mouth twice daily. - esomeprazole (NEXIUM) 20 mg capsule Take 1 capsule by mouth DAILY (6 AM). - tiZANidine HCl 4 mg capsule Take 4 mg by mouth three times daily as needed. - zolpidem (AMBIEN) (more content not included)...[facility] 05-24-2021 NoteHNO ID: [id number] Author: Kentrell Dhaliwal II, MD Service: ? Author Type: Physician Type: Progress Notes Filed: 05/24/2021 8:15 PM Note Text: Kentrell Dhaliwal II, MD [address], [place] [address] NOEMI Escobar is a 70 year old female who presents with F/U 3 Month and Fall. HPI Patient is in today to follow-up her diabetes, high blood pressure and other chronic problems. She states she is doing fairly well she did have a fall recently where she slipped when she was gardening and landed on her right hand. She states it happened a couple weeks ago and that is the hand where she has hardware from a previous fracture. She states is hurting but gotten a little better and she does not want to do any work-up for it at this time. The fall was a situational slipped not loss of consciousness or anything that is happening with any regularity. Review of Systems Constitutional: Negative for activity change, appetite change, chills, diaphoresis, fatigue, fever and unexpected weight change. HENT: Negative for congestion, dental problem, ear pain, hearing loss, nosebleeds, postnasal drip, rhinorrhea, sinus pressure, sinus pain, sore throat, trouble swallowing and voice change. Eyes: Negative for discharge, redness and visual disturbance. Respiratory: Negative for apnea, cough, choking, chest tightness, shortness of breath, wheezing and stridor. Cardiovascular: Negative for chest pain, palpitations and leg swelling. Gastrointestinal: Negative for abdominal distention, abdominal pain, blood in stool, constipation, diarrhea, nausea and vomiting. Endocrine: Negative for cold intolerance, heat intolerance, polydipsia, polyphagia and polyuria. Genitourinary: Negative for decreased urine volume, difficulty urinating, dysuria, enuresis, frequency, hematuria and urgency. Musculoskeletal: Negative for arthralgias, gait problem and myalgias. Skin: Negative for color change, pallor, rash and wound. Allergic/Immunologic: Negative for environmental allergies. Neurological: Negative for dizziness, tremors, syncope, facial asymmetry, speech difficulty, weakness, light-headedness, numbness and headaches. Hematological: Negative for adenopathy. Does not bruise/bleed easily. Psychiatric/Behavioral: Negative for agitation, behavioral problems, confusion, decreased concentration, dysphoric mood, hallucinations, self-injury, sleep disturbance and suicidal ideas. The patient is not nervous/anxious and is not hyperactive. PAST MEDICAL HISTORY Diagnosis Date - Anxiety and depression - Diabetes (HCC) - Drug-induced Parkinson's disease (HCC) - GERD (gastroesophageal reflux disease) - History of DVT (deep vein thrombosis) - IBS (irritable bowel syndrome) - Seizures (HCC) - Tremor PAST SURGICAL HISTORY Procedure Laterality Date - CHOLECYSTECTOMY HX - HYSTERECTOMY HX - ROTATOR CUFF REPAIR Left - TONSILLECTOMY HX - WRIST SURGERY HX Right Social History Tobacco Use - Smoking status: Never Smoker - Smokeless tobacco: Never Used Vaping Use - Vaping Use: Never used Substance Use Topics - Alcohol use: Not Currently - Drug use: Never FAMILY HISTORY Problem Relation Age of Onset - Emphysema Mother - Heart disease Father The ROS, medical, surgical, family, and social history were reviewed by Kentrell Dhaliwal II, MD ALLERGIES Allergen Reactions - Dilaudid [Hydromorp* Shortness of Breath quit breathing - Latex Anaphylaxis - Codeine Diarrhea - Compazine [Prochlor* Myalgia - Levaquin [Levofloxa* Diarrhea - Omnicef [Cefdinir] Diarrhea - Qvfhrtg-Ujh-Nvm Red* Diarrhea - Sulfa (Sulfonamide * Other: See Comments Leg pain Current Outpatient Medications Medication Sig - gabapentin (NEURONTIN) 300 mg capsule Take 300 mg by mouth three times daily. - escitalopram oxalate (LEXAPRO) 20 mg tablet Take 1 tablet by mouth once daily. - levothyroxine (SYNTHROID) 25 mcg tablet Take 1 tablet by mouth once daily. - ALPRAZolam (XANAX) 1 mg tablet TAKE 1 TABLET BY MOUTH TWICE DAILY - mirtazapine (REMERON) 30 mg tablet Take 1 tablet by mouth daily at bedtime. - buPROPion XL (WELLBUTRIN XL) 150 mg 24 hr tablet Take 1 tablet by mouth once daily. - dicyclomine (BENTYL) 20 mg tablet Take 1 tablet by mouth three times daily. - diphenoxylate-atropine (LOMOTIL) 2.5-0.025 mg per tablet Take 1 tablet by mouth four times daily as needed for Diarrhea for up to 5 days. - apixaban (ELIQUIS) 5 mg tab(s) Take 1 tablet by mouth twice daily. - esomeprazole (NEXIUM) 20 mg capsule Take 1 capsule by mouth DAILY (6 AM). - tiZANidine HCl 4 mg capsule Take 4 mg by mouth three times daily as needed. - predniSONE (DELTASONE) 20 mg tablet Take 3 tablets by mouth once daily for 3 days, THEN 2 tablets once daily for 3 days, THEN 1 tablet once daily for 3 days. - diphenoxylate-atropine (LOMOTIL) 2.5-0.025 mg per tablet Take (more content not included)...[facility]10-06-2020 History of Past illness Narrative* Problem Noted Date Resolved Date Parkinson's disease 06/22/2020 04/17/2022 GERD without esophagitis 06/22/2020 022 documented as of this encounter (statuses as of 04/19/2022) [facility]10-06-2020 History of Past illness Narrative* Problem Noted Date Resolved Date Parkinson's disease 06/22/2020 04/17/2022 GERD without esophagitis 06/22/2020 022 documented as of this encounter (statuses as of 04/20/2022) [facility]10-06-2020 History of Past illness Narrative* Problem Noted Date Resolved Date Parkinson's disease 06/22/2020 04/17/2022 GERD without esophagitis 06/22/2020 022 documented as of this encounter (statuses as of 04/20/2022) [facility]10-06-2020 History of Past illness Narrative* Problem Noted Date Resolved Date Parkinson's disease 06/22/2020 04/17/2022 GERD without esophagitis 06/22/2020 022 documented as of this encounter (statuses as of 04/21/2022) [facility]10-[facility]2020 History of Past illness Narrative* Problem Noted Date Resolved Date Parkinson's disease 06/22/2020 04/17/2022 GERD without esophagitis 06/22/2020 022 documented as of this encounter (statuses as of 04/21/2022) [facility]10-06-2020 History of Past illness Narrative* Problem Noted Date Resolved Date Parkinson's disease 06/22/2020 04/17/2022 GERD without esophagitis 06/22/2020 022 documented as of this encounter (statuses as of 04/24/2022) [facility]10-06-2020 History of Past illness Narrative* Problem Noted Date Resolved Date Parkinson's disease 06/22/2020 04/17/2022 GERD without esophagitis 06/22/2020 022 documented as of this encounter (statuses as of 05/04/2022) [facility]2020 History of Past illness Narrative* Problem Noted Date Resolved Date Parkinson's disease 06/22/2020 04/17/2022 GERD without esophagitis 06/22/2020 022 documented as of this encounter (statuses as of 05/04/2022) [facility]2020 History of Past illness Narrative* Problem Noted Date Resolved Date Parkinson's disease 06/22/2020 04/17/2022 GERD without esophagitis 06/22/2020 022 documented as of this encounter (statuses as of 05/04/2022) [facility]2020 History of Past illness Narrative* Problem Noted Date Resolved Date Parkinson's disease 06/22/2020 04/17/2022 GERD without esophagitis 06/22/2020 022 documented as of this encounter (statuses as of 05/04/2022) [facility]10-06-2020 History of Past illness Narrative* Problem Noted Date Resolved Date Parkinson's disease 06/22/2020 04/17/2022 GERD without esophagitis 06/22/2020 022 documented as of this encounter (statuses as of 05/05/2022) [facility]2020 History of Past illness Narrative* Problem Noted Date Resolved Date Parkinson's disease 06/22/2020 04/17/2022 GERD without esophagitis 06/22/2020 022 documented as of this encounter (statuses as of 05/05/2022) [facility] History of Past illness Narrative* Problem Noted Date Resolved Date Parkinson's disease 06/22/2020 04/17/2022 GERD without esophagitis 06/22/2020 022 documented as of this encounter (statuses as of 05/15/2022) [facility]2020 History of Past illness Narrative* Problem Noted Date Resolved Date Parkinson's disease 06/22/2020 04/17/2022 GERD without esophagitis 06/22/2020 022 documented as of this encounter (statuses as of 05/19/2022) [facility] History of Past illness Narrative* Problem Noted Date Resolved Date Parkinson's disease 06/22/2020 04/17/2022 GERD without esophagitis 06/22/2020 022 documented as of this encounter (statuses as of 05/19/2022) [facility] History of Past illness Narrative* Problem Noted Date Resolved Date Parkinson's disease 06/22/2020 04/17/2022 GERD without esophagitis 06/22/2020 022 documented as of this encounter (statuses as of 06/05/2022) [facility] History of Past illness Narrative* Problem Noted Date Resolved Date Parkinson's disease 06/22/2020 04/17/2022 GERD without esophagitis 06/22/2020 022 documented as of this encounter (statuses as of 06/06/2022) [facility] History of Past illness Narrative* Problem Noted Date Resolved Date Parkinson's disease 06/22/2020 04/17/2022 GERD without esophagitis 06/22/2020 022 documented as of this encounter (statuses as of 06/06/2022) [facility] History of Past illness Narrative* Problem Noted Date Resolved Date Parkinson's disease 06/22/2020 04/17/2022 GERD without esophagitis 06/22/2020 022 documented as of this encounter (statuses as of 06/20/2022) [facility] History of Past illness Narrative* Problem Noted Date Resolved Date Parkinson's disease 06/22/2020 04/17/2022 GERD without esophagitis 06/22/2020 022 documented as of this encounter (statuses as of 07/04/2022) [facility] History of Past illness Narrative* Problem Noted Date Resolved Date Parkinson's disease 06/22/2020 04/17/2022 GERD without esophagitis 06/22/2020 022 documented as of this encounter (statuses as of 07/07/2022) [facility] History of Past illness Narrative* Problem Noted Date Resolved Date Parkinson's disease 06/22/2020 04/17/2022 GERD without esophagitis 06/22/2020 022 documented as of this encounter (statuses as of 07/08/2022) [facility] History of Past illness Narrative* Problem Noted Date Resolved Date Parkinson's disease 06/22/2020 04/17/2022 GERD without esophagitis 06/22/2020 022 documented as of this encounter (statuses as of 07/13/2022) [facility] History of Past illness Narrative* Problem Noted Date Resolved Date Parkinson's disease 06/22/2020 04/17/2022 GERD without esophagitis 06/22/2020 022 documented as of this encounter (statuses as of 07/17/2022) [facility] History of Past illness Narrative* Problem Noted Date Resolved Date Parkinson's disease 06/22/2020 04/17/2022 GERD without esophagitis 06/22/2020 022 documented as of this encounter (statuses as of 07/18/2022) [facility] History of Past illness Narrative* Problem Noted Date Resolved Date Parkinson's disease 06/22/2020 04/17/2022 GERD without esophagitis 06/22/2020 022 documented as of this encounter (statuses as of 07/18/2022) [facility] History of Past illness Narrative* Problem Noted Date Resolved Date Parkinson's disease 06/22/2020 04/17/2022 GERD without esophagitis 06/22/2020 022 documented as of this encounter (statuses as of 07/19/2022) [facility] History of Past illness Narrative* Problem Noted Date Resolved Date Parkinson's disease 06/22/2020 04/17/2022 GERD without esophagitis 06/22/2020 022 documented as of this encounter (statuses as of 07/21/2022) [facility] History of Past illness Narrative* Problem Noted Date Resolved Date Parkinson's disease 06/22/2020 04/17/2022 GERD without esophagitis 06/22/2020 022 documented as of this encounter (statuses as of 07/24/2022) [facility] History of Past illness Narrative* Problem Noted Date Resolved Date Parkinson's disease 06/22/2020 04/17/2022 GERD without esophagitis 06/22/2020 022 documented as of this encounter (statuses as of 08/16/2022) [facility] History of Past illness Narrative* Problem Noted Date Resolved Date Parkinson's disease 06/22/2020 04/17/2022 GERD without esophagitis 06/22/2020 022 documented as of this encounter (statuses as of 08/23/2022) [facility] History of Past illness Narrative* Problem Noted Date Resolved Date Parkinson's disease 06/22/2020 04/17/2022 GERD without esophagitis 06/22/2020 022 documented as of this encounter (statuses as of 08/24/2022) [facility] History of Past illness Narrative* Problem Noted Date Resolved Date Parkinson's disease 06/22/2020 04/17/2022 GERD without esophagitis 06/22/2020 022 documented as of this encounter (statuses as of 09/19/2022) [facility] History of Past illness Narrative* Problem Noted Date Resolved Date Parkinson's disease 06/22/2020 04/17/2022 GERD without esophagitis 06/22/2020 022 documented as of this encounter (statuses as of 10/15/2022) [facility] History of Past illness Narrative* Problem Noted Date Resolved Date Parkinson's disease 06/22/2020 04/17/2022 GERD without esophagitis 06/22/2020 022 documented as of this encounter (statuses as of 10/31/2022) [facility] History of Past illness Narrative* Problem Noted Date Resolved Date Parkinson's disease 06/22/2020 04/17/2022 GERD without esophagitis 06/22/2020 022 documented as of this encounter (statuses as of 11/14/2022) [facility] History of Past illness Narrative* Problem Noted Date Resolved Date Parkinson's disease 06/22/2020 04/17/2022 GERD without esophagitis 06/22/2020 022 documented as of this encounter (statuses as of 11/24/2022) [facility] History of Past illness Narrative* Problem Noted Date Resolved Date Parkinson's disease 06/22/2020 04/17/2022 GERD without esophagitis 06/22/2020 022 documented as of this encounter (statuses as of 12/06/2022) [facility] History of Past illness Narrative* Problem Noted Date Resolved Date Parkinson's disease 06/22/2020 04/17/2022 GERD without esophagitis 06/22/2020 022 documented as of this encounter (statuses as of 12/11/2022) [facility] History of Past illness Narrative* Problem Noted Date Resolved Date Parkinson's disease 06/22/2020 04/17/2022 GERD without esophagitis 06/22/2020 022 documented as of this encounter (statuses as of 12/13/2022) [facility] History of Past illness Narrative* Problem Noted Date Resolved Date Parkinson's disease 06/22/2020 04/17/2022 GERD without esophagitis 06/22/2020 022 documented as of this encounter (statuses as of 01/09/2023) [facility] History of Past illness Narrative* Problem Noted Date Resolved Date Parkinson's disease 06/22/2020 04/17/2022 GERD without esophagitis 06/22/2020 022 documented as of this encounter (statuses as of 01/18/2023) [facility] History of Past illness Narrative* Problem Noted Date Resolved Date Parkinson's disease 06/22/2020 04/17/2022 GERD without esophagitis 06/22/2020 022 documented as of this encounter (statuses as of 01/30/2023) [facility] History of Past illness Narrative* Problem Noted Date Diagnosed Date Resolved Date Parkinson's disease 06/22/2020 04/17/20 22 GERD without esophagitis 06/22/202009/2021 documented as of this encounter (statuses as of 06/16/2023) [facility] History of Past illness Narrative* Problem Noted Date Diagnosed Date Resolved Date Parkinson's disease 06/22/2020 04/17/20 22 GERD without esophagitis 06/22/202009/2021 documented as of this encounter (statuses as of 06/16/2023) [facility]von Oliver [facility] March 18, 2023 4:19pm Note Date/Time March 18, 2023 4:18p [facility] Medical Records Department [address] [place] [address] Instructions for Home/Discharge Instructions 03/18/23 1618 MR#: [id number] Acct: [id number] Name: KAITLYN ESCOBAR Rep #:[id number] : 1950 72 From: Ivon Oliver MD PCP: Dr. Kentrell Dhaliwal MD Status:ADM IN Discharge Instructions Diet Discharge Diet: Light diet - advance as tolerated Follow Up Care Test Results: Test results from this visit will be discussed in further detail at your follow- up appointment, if applicable. Discharge Plan Admission Admit Date/Time: 03/16/23 06:30 Primary Reason for Your Visit: Partial bowel obstruction Attending Provider: Ivon Oliver Primary Care Provider: Kentrell Dhaliwal Consulting Providers: Jessica Thomas; Paulo Umanzor; Aly Fragoso Instructions Patient Instructions: Obstruction Intestinal Discharge Orders/Prescriptions Prescriptions: Continued alprazolam [Xanax] 1 mg Tablet 1 mg PO BID ondansetron HCl 4 mg Tablet 4 mg PO Q6H PRN (Reason: Nausea) levothyroxine 50 mcg Tablet 50 mcg PO DAILY docusate sodium 100 mg capsule 100 mg PO BID Patient Comments: TAKE 1 CAPSULE BY MOUTH TWICE DAILY zolpidem [Ambien] 10 mg Tablet 10 mg PO QHS esomeprazole magnesium 20 mg capsule,delayed release(/EC) 20 mg PO DAILY ezetimibe 10 mg Tablet 10 mg PO DAILY bupropion HCl 150 mg tablet extended release 24 hr 150 mg PO BID Eliquis 5 mg Tablet 5 mg PO BID dicyclomine 10 mg capsule 20 mg PO TIDAC Qty: 20 0RF Referrals / Follow Up: Paulo Umanzor MD [Med Staff - Active Staff] - (Follow-up with surgery as needed) Kentrell Dhaliwal MD [Primary Care Provider] - Within 1 Week Care Physician,No Primary [Non-Staff] - Disposition Disposition (needs filled in before D/C Order can be placed): Home, Self Care 03/18/23 1619<Electronically signed by Ivon Oliver MD>Ivon Oliver MD CC: Dr. Jessica Thomas MD; Dr. Paulo Umanzor MD; Dr. Aly Fragoso MD;Dr. Kentrell Dhaliwal MD ~ Signed [facility] Work Phone: Discharge summary Author Aly Fragoso [facility] December 11, 2023 2:04pm Note Date/Time December 11, 2023 2:0 1pm [facility] Medical Records Department [address] [place] [address] Instructions for Home/Discharge Instructions 12/11/23 1358 MR#: [id number] Acct: [id number] Name: KAITLYN ESCOBAR Rep #:[id number] : 1950 73 From: Aly quintana MD PCP: Dr. Kentrell Dhaliwal MD Status:ADM IN Discharge Instructions Diet Discharge Diet: No restrictions Activity Discharge Activity: Return to Normal Activity Dressing / Incision Call your doctor if you observe: Fever of 101 or Higher, Using more than 1 pad per hour, Shortness of breath, Dizziness, Swelling in the ankles, Chest pain andIncreased palpitations (irregular heartbeat) Follow Up Care Test Results: Test results from this visit will be discussed in further detail at your follow- up appointment, if applicable. Discharge Plan Admission Admit Date/Time: 12/07/23 00:00 Attending Provider: Aly Fragoso Primary Care Provider: Kentrell Dhaliwal Consulting Providers: Paulo Umanzor; Jessica Thomas Discharge Orders/Prescriptions Prescriptions: Continued alprazolam [Xanax] 1 mg Tablet 1 mg PO BID Hold Instructions: Resume on 03/21/23. ondansetron HCl 4 mg Tablet 4 mg PO Q6H PRN (Reason: Nausea) Patient Comments: takes 8mg q6hr prn levothyroxine 50 mcg Tablet 50 mcg PO DAILY zolpidem [Ambien] 10 mg Tablet 10 mg PO QHS Hold Instructions: Resume on 03/21/23. esomeprazole magnesium 20 mg capsule,delayed release(DR/EC) 20 mg PO DAILY ezetimibe 10 mg Tablet 10 mg PO DAILY bupropion HCl 150 mg tablet extended release 24 hr 150 mg PO BID docusate sodium 100 mg capsule 100 mg PO BID Patient Comments: TAKE 1 CAPSULE BY MOUTH TWICE DAILY ropinirole 0.5 mg tablet 0.5 mg PO BID warfarin 5 mg tablet 5 mg PO DAILY buspirone 15 mg tablet 7.5 mg PO BID Breztri Aerosphere 160-9-4.8 mcg/actuation HFA aerosol inhaler 2 inh inhalation BID polyethylene glycol 3350 [Miralax] 17 gram/dose powder 17 g PO BID Referrals / Follow Up: Kentrell Dhaliwal MD [Primary Care Provider] - Within 1 Week Disposition Disposition (needs filled in before D/C Order can be placed): Home, Self Care 12/11/23 1404<Electronically signed by Aly Fragoso MD>Aly Fragoso MD CC: Dr. Jessica Thomas MD; Dr. Paulo Umanzor MD; Dr. Kentrell Dhaliwal MD ~ Signed [facility] Work Phone: Evaluation note* Diagnosis Peritoneal abscess (HCC)- Primary Peritoneal abscess Adverse effect of treatment, initial encounter [facility] Diagnosis History of small bowel obstruction- Primary Personal history of other diseases of digestive system On total parenteral nutrition (TPN) Other specified conditions influencing health status [facility] Diagnosis History of small bowel obstruction- Primary Personal history of other diseases of digestive system On total parenteral nutrition (TPN) Other specified conditions influencing health status Post-operative state Other postprocedural status [facility] Diagnosis History of small bowel obstruction- Primary Personal history of other diseases of digestive system Abdominal pain, unspecified abdominal location Post-operative state Other postprocedural status [facility] Diagnosis Generalized abdominal pain- Primary Abdominal pain, generalized Elevated liver function tests Other abnormal blood chemistry [facility]* Diagnosis Generalized weakness- Primary Other malaise and fatigue SBO (small bowel obstruction) (HCC) Unspecified intestinal obstruction Fatigue, unspecified type Type 2 diabetes mellitus without complication, without long-term current use of insulin (HCC) Parkinson's disease (HCC) Paralysis agitans documented in this encounter [facility] note* Diagnosis History of small bowel obstruction- Primary Personal history of other diseases of digestive system Abdominal pain, unspecified abdominal location documented in this encounter [facility] note* Diagnosis Anxiety and depression Dysthymic disorder documented in this encounter [facility] note* Diagnosis Chronic insomnia Insomnia, unspecified documented in this encounter [facility] note* Diagnosis Anxiety and depression Dysthymic disorder documented in this encounter [facility] note* Diagnosis Anxiety and depression- Primary Dysthymic disorder Chronic insomnia Insomnia, unspecified Gastroesophageal reflux disease, unspecified whether esophagitis present Type 2 diabetes mellitus without complication, without long-term current use of insulin (HCC) SBO (small bowel obstruction) ([facility]) Unspecified intestinal obstruction documented in this encounter [facility] note* Diagnosis Anxiety and depression Dysthymic disorder documented in this encounter [facility] note* Diagnosis Chronic insomnia Insomnia, unspecified documented in this encounter [facility] note* Diagnosis Anxiety and depression- Primary Dysthymic disorder Irritable bowel syndrome with both constipation and diarrhea Gastroesophageal reflux disease, unspecified whether esophagitis present Type 2 diabetes mellitus without complication, without long-term current use of insulin (HCC) Elevated liver function tests Other abnormal blood chemistry Hypothyroidism, acquired Unspecified hypothyroidism Myalgias Chronic insomnia Insomnia, unspecified documented in this encounter [facility] note* Diagnosis Myalgias documented in this encounter [facility] note* Diagnosis Chronic insomnia Insomnia, unspecified documented in this encounter [facility] note* Diagnosis Anxiety and depression Dysthymic disorder documented in this encounter [facility] note* Diagnosis Syncope, unspecified syncope type- Primary Anxiety and depression Dysthymic disorder Irritable bowel syndrome with both constipation and diarrhea Gastroesophageal reflux disease, unspecified whether esophagitis present Hypothyroidism, acquired Unspecified hypothyroidism SBO (small bowel obstruction) (HCC) Unspecified intestinal obstruction Recurrent UTI (urinary tract infection) Urinary tract infection, site not specified documented in this encounter [facility] note* Diagnosis Chronic insomnia Insomnia, unspecified documented in this encounter [facility] note* Diagnosis Anxiety and depression [facility]ysthymic [facility] Diagnosis LLQ abdominal pain- Primary Abdominal pain, left lower quadrant Nausea and vomiting, unspecified vomiting type Partial small bowel obstruction (HCC) Unspecified intestinal obstruction documented in this encounter [facility] note* Diagnosis Anxiety and depression Dysthymic disorder documented in this encounter [facility] note* Diagnosis Hypothyroidism, acquired- Primary Unspecified hypothyroidism Type 2 diabetes mellitus without complication, without long-term current use of insulin (HCC) Gastroesophageal reflux disease, unspecified whether esophagitis present Anxiety and depression Dysthymic disorder Elevated liver function tests Other abnormal blood chemistry Irritable bowel syndrome with both constipation and diarrhea documented in this encounter [facility] noteNo assessment information availableWElyria [facility] Work Phone: [employer] note* Diagnosis Chronic insomnia Insomnia, unspecified documented in this encounter [facility] note* Diagnosis Chronic insomnia Insomnia, unspecified documented in this encounter [facility] note* Diagnosis Onset Date Resolution Status Partial small bowel obstruction acute [facility] Work Phone: Evaluation note* Diagnosis Onset Date Resolution Status Constipation acute Partial small bowel obstruction acute [facility] Work Phone: Evaluation note* Diagnosis Onset Date Resolution Status Constipation resolved Partial small bowel obstruction resolved [facility] Work Phone: Evaluation note* Diagnosis Anxiety and depression Dysthymic disorder documented in this encounter [facility] note* Diagnosis Anxiety and depression Dysthymic disorder documented in this encounter [facility] note* Diagnosis Small bowel obstruction (HCC)- Primary Unspecified intestinal obstruction Recurrent UTI (urinary tract infection) Urinary tract infection, site not specified Dermatitis Contact dermatitis and other eczema, due to unspecified cause Gastroesophageal reflux disease, unspecified whether esophagitis present Hypothyroidism, acquired Unspecified hypothyroidism Anxiety and depression Dysthymic disorder Generalized weakness Other malaise and fatigue documented in this encounter [facility] note* Diagnosis Chronic insomnia Insomnia, unspecified documented in this encounter [facility] note* Diagnosis Small bowel obstruction (HCC) Unspecified intestinal obstruction documented in this encounter [facility] note* Diagnosis Small bowel obstruction (HCC) Unspecified intestinal obstruction documented in this encounter [facility] note* Diagnosis Generalized abdominal pain- Primary Abdominal pain, generalized Small bowel obstruction (HCC) Unspecified intestinal obstruction documented in this encounter [facility] note* Diagnosis Anxiety and depression Dysthymic disorder documented in this encounter [facility] note* Diagnosis Generalized abdominal pain Abdominal pain, generalized documented in this encounter [facility] note* Diagnosis Anxiety and depression Dysthymic disorder Generalized abdominal pain Abdominal pain, generalized [facility]* Diagnosis Generalized weakness Other malaise and fatigue SOB (shortness of breath) Shortness of breath CHAVARRIA (dyspnea on exertion) Other dyspnea and respiratory abnormality Fatigue, unspecified type documented in this encounter [facility] note* Diagnosis Generalized weakness- Primary Other malaise and fatigue SOB (shortness of breath) Shortness of breath CHAVARRIA (dyspnea on exertion) Other dyspnea and respiratory abnormality Fatigue, unspecified type Chronic insomnia Insomnia, unspecified Anxiety and depression Dysthymic disorder Generalized abdominal pain Abdominal pain, generalized documented in this encounter [facility] note* Diagnosis Anxiety and depression Dysthymic disorder documented in this encounter [facility] note* Diagnosis Gastroesophageal reflux disease, unspecified whether esophagitis present- Primary Nausea Nausea alone Diarrhea, unspecified type documented in this encounter [facility] note* Diagnosis Onset Date Resolution Status SBO (small bowel obstruction) [facility] Work Phone: Evaluation note* Diagnosis Onset Date Resolution Status Abdominal pain acute SBO (small bowel obstruction) [facility] Work Phone: Evaluation note* Diagnosis Gastroesophageal reflux disease, unspecified whether esophagitis present- Primary Nausea Nausea alone Anxiety and depression Dysthymic disorder Diarrhea, unspecified type Generalized weakness Other malaise and fatigue Hypothyroidism, acquired Unspecified hypothyroidism Iron deficiency anemia, unspecified iron deficiency anemia type documented in this encounter [facility] note* Diagnosis Chronic insomnia Insomnia, unspecified documented in this encounter [facility] note* Diagnosis Anxiety and depression Dysthymic disorder documented in this encounter [facility] note* Diagnosis Anxiety and depression Dysthymic disorder documented in this encounter [facility] note* Diagnosis Nausea Nausea alone documented in this encounter [facility] note* Diagnosis Chronic insomnia Insomnia, unspecified Anxiety and depression Dysthymic disorder documented in this encounter [facility] note* Diagnosis Chronic insomnia Insomnia, unspecified documented in this encounter [facility] note* Diagnosis Nausea Nausea alone documented in this encounter [facility] note* Diagnosis Anxiety and depression Dysthymic disorder Chronic insomnia Insomnia, unspecified documented in this encounter [facility] note* Diagnosis LLQ abdominal pain Abdominal pain, left lower quadrant Partial small bowel obstruction (HCC) Unspecified intestinal obstruction documented in this encounter [facility] note* Diagnosis Gastroesophageal reflux disease, unspecified whether esophagitis present- Primary Anxiety and depression Dysthymic disorder Chronic insomnia Insomnia, unspecified Hypothyroidism, acquired Unspecified hypothyroidism Iron deficiency anemia, unspecified iron deficiency anemia type Nausea Nausea alone Vitamin D deficiency Unspecified vitamin D deficiency documented in this encounter [facility] note* Diagnosis Anxiety and depression Dysthymic disorder documented in this encounter [facility] note* Diagnosis Chronic insomnia Insomnia, unspecified documented in this encounter [facility] note* Diagnosis Acute otitis media, left- Primary Unspecified otitis media Acute otitis externa of left ear, unspecified type documented in this encounter [facility] note* Diagnosis Anxiety and depression Dysthymic disorder documented in this encounter [facility] note* Diagnosis Anxiety and depression Dysthymic disorder documented in this encounter [facility] note* Diagnosis Anxiety and depression Dysthymic disorder documented in this encounter [facility] note* Diagnosis Chronic deep vein thrombosis (DVT) of proximal vein of lower extremity, unspecified laterality (HCC) documented in this encounter [facility] note* Diagnosis Gastroesophageal reflux disease, unspecified whether esophagitis present- Primary Generalized abdominal pain Abdominal pain, generalized Anxiety and depression Dysthymic disorder Hypothyroidism, acquired Unspecified hypothyroidism Elevated blood pressure reading without diagnosis of hypertension documented in this encounter [facility] note* Diagnosis Generalized abdominal pain- Primary Abdominal pain, generalized Gastroesophageal reflux disease, unspecified whether esophagitis present SOB (shortness of breath) Shortness of breath Anxiety and depression Dysthymic disorder Elevated blood pressure reading without diagnosis of hypertension documented in this encounter [facility] note* Diagnosis Chronic insomnia Insomnia, unspecified documented in this encounter [facility] note* Diagnosis Chronic insomnia Insomnia, unspecified documented in this encounter [facility] note* Diagnosis Anxiety and depression Dysthymic disorder documented in this encounter [facility] note* Diagnosis Nausea Nausea alone [facility] Diagnosis Anxiety and depression Dysthymic disorder [facility]* Diagnosis Anxiety and depression Dysthymic disorder Chronic insomnia Insomnia, unspecified [facility]* Diagnosis Anxiety and depression Dysthymic disorder [facility]* Diagnosis Gastroesophageal reflux disease, unspecified whether esophagitis present- Primary Hypothyroidism, acquired Unspecified hypothyroidism Iron deficiency anemia, unspecified iron deficiency anemia type Nausea Nausea alone Vitamin D deficiency Unspecified vitamin D deficiency Vitamin B12 deficiency Other B-complex deficiencies Fatigue, unspecified type 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 Irritable bowel syndrome with both constipation and diarrhea Severe protein-calorie malnutrition (HCC) Other severe protein-calorie malnutrition [facility]* Diagnosis Anxiety and depression Dysthymic disorder [facility]* Diagnosis Vertigo- Primary Dizziness and giddiness Anxiety and depression Dysthymic disorder CHAVARRIA (dyspnea on exertion) Other dyspnea and respiratory abnormality Palpitations Gastroesophageal reflux disease, unspecified whether esophagitis present Hypothyroidism, acquired Unspecified hypothyroidism Iron deficiency anemia, unspecified iron deficiency anemia type 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 Irritable bowel syndrome with both constipation and diarrhea [facility]* Diagnosis Anxiety and depression Dysthymic disorder Chronic insomnia Insomnia, unspecified [facility] Author Jessica Thomas [facility] March 16, 2023 6:39am Note Date/Time March 16, 2023 6:31 am [facility] Medical Records Department [address] [place] [id number] H&P Exam - Hospitalist 03/16/23 0631 MR#: [id number] Acct: [id number] Name: KAITLYN ESCOBAR Rep #:[id number] : 1950 72 From: Jessica Thomas MD PCP: Dr. Kentrell Dhaliwal MD Status:ADM IN Location: [facility] TR113-1 HPI - General General Date of Admission: 03/16/23 Date of Service: 03/16/23 Chief Complaint: Abdominal pain, N/V. HPI Narrative The patient is a 72 y/o F w/ PMHx: Hypothyroidism, Anxiety and Depression, Hx VTE, HLD, GERD, Hx SBO s/p 7 prior abdominal surgeries including bowel resectionwho presents to the [facility] ED on 03/16/23 with history of onset abdominal pain over the last 2 days continuous in nature, aching, associated with nausea and emesis with pain primarily focally in the left lower quadrant and no severe marked distention however patient reports last bowel movement the Sunday prior and last flatus on day prior earlier in the day prompting eventual ED evaluation secondary to concerns bowel related with associated decreased oral intake. She does report that this is different than her prior bowel obstructions and the fact that is more focal pain and more severe and sharp. She rates her pain initially 10 of 10 in severity but following current interventions 5 out of 10 in severity. Work-up in the ED included T96.5, heart rate 74, BP 124/94, respiratory rate 18, #room air, CBC with WC 8.4, hemoglobin 11.4, MCV 89.4, platelet 361 without marked shift, CMP with chloride 109, BUN/creatinine 18/1.49, medic profile unremarkable, urinalysis unremarkable, CT abdomen pelvis with mildly focally dilated small bowel in the left lower abdomen near the surgical anastomosis similar but increased compared to prior possibly related topostsurgical change however focal ileus, enteritis or partial low-grade small bowel obstruction cannot be entirely excluded, biliary dilatation is stable compared to prior study postcholecystectomy. In the ED patient ministered 1 L normal saline, Zofran 4 mg IV x1 as well as morphine 4 mg IV x1. ED discussed case with Dr. Umanzor, general surgery who requested NG tube be placed and small bowel follow-through be initiated. [facility] Medical History (Updated 03/16/23 @ 06:[address] Jessica Thomas MD) Anxiety and depression GERD (gastroesophageal reflux disease) History of small bowel obstruction History of venous thromboembolism HLD (hyperlipidemia) Hypothyroidism Home Medications alprazolam 1 mg tablet (Xanax) 1 mg PO BID 12/11/22 [History Last Taken Unknown] apixaban 5 mg tablet (Eliquis) 5 mg PO BID 12/11/22 [History Last Taken Unknown] bupropion HCl 150 mg 24 hr tablet, extended release 150 mg PO BID 12/11/22 [History Last Taken Unknown] dicyclomine 10 mg capsule 20 mg (2 x 10 mg) PO TIDAC #20 CAPSULES 12/11/22 [Rx Last Taken Unknown] docusate sodium 100 mg capsule 100 mg PO BID 12/11/22 [History Last Taken Unknown] esomeprazole magnesium 20 mg capsule,delayed release 20 mg PO DAILY 12/11/22 [History Last Taken Unknown] ezetimibe 10 mg tablet 10 mg PO DAILY 12/11/22 [History Last Taken Unknown] levothyroxine 50 mcg tablet 50 mcg PO DAILY 12/11/22 [History Last Taken Unknown] ondansetron HCl 4 mg tablet 4 mg PO Q6H PRN Nausea 12/11/22 [History Last Taken Unknown] zolpidem 10 mg tablet (Ambien) 10 mg PO QHS 12/11/22 [History Last Taken Unknown] Allergy/AdvReac Type Severity Reaction Status Date / Time cefdinir [From Omnicef] Allergy Hives Verified 12/11/22 22:27 codeine Allergy NEEDS Verified 12/11/22 22:27 FOLLOW-UP latex Allergy Anaphylaxis Verified 12/11/22 22:27 prochlorperazine Allergy NEEDS Verified 12/11/22 22:47 [From Compazine] FOLLOW-UP shellfish derived Allergy Anaphylaxis Verified 03/16/23 03:34 levofloxacin [From Levaquin] AdvReac Vomiting Verified 12/11/22 22:27 [id number] Reductase AdvReac NEEDS Verified 12/11/22 22:27 Inhibitor FOLLOW-UP Family History (Updated 03/16/23 @ 06:[address] Jessica Thomas MD) Mother Heart disease COPD (chronic obstructive pulmonary disease) Father Heart disease Hypertension CAD (coronary artery disease) Myocardial infarction Surgical History (Updated 03/16/23 @ 06:[address] Jessica Thomas MD) History of appendectomy History of cholecystectomy History of colon surgery History of total abdominal hysterectomy Social History (Updated 03/16/23 @ 06:[address] Jessica Thomas MD) household members: none Smoking Status: Never smoker alcohol intake: never substance use type: does not use ROS ROS Narrative Admission Review of Systems: CONSTITUTIONAL: No weight loss, fever, chills, + weakness or fatigue. HEENT: Eyes: No visual loss, blurred vision, double vision or yellow sclerae. Ears, Nose, Throat: No hearing loss, sneezing, congestion, runny nose or sore throat. SKIN: No rash or itching, lesions, wounds. CARDIOVASCULAR: No chest pain, chest pressure or chest discomfort, palpitations,edema, orthopnea, syncopal events. RESPIRATORY: No shortness of breath, cough or sputum, wheezing, hemoptysis. GASTROINTESTINAL: + anorexia, nausea, vomiting, abdominal pain, lack of flatus, decreased BM history. No melena, BRBPR. GENITOURINARY: No dysuria, frequency, urgency or retention. NEUROLOGICAL: No headache, dizziness, syncope, paralysis, ataxia, numbness or tingling in the extremities, focal weakness, change in bowel or bladder control,seizure. MUSCULOSKELETAL: + muscle, back pain, joint pain or stiffness. HEMATOLOGIC: No anemia, bleeding or bruising. LYMPHATICS: No enlarged nodes. No history of splenectomy. PSYCHIATRIC: + history of depression or anxiety. ENDOCRINOLOGIC: No reports of sweating, cold or heat intolerance. No polyuria orpolydipsia. ALLERGIES: + History of hives and anaphylaxis. Vital Signs Vital Signs Vital Signs: 03/16/23 03:35 Temperature 96.5 F L Temperature Source Temporal Pulse Rate 74 Respiratory Rate 18 Blood Pressure 124/94 H Blood Pressure Mean 104 Pulse Ox 100 Weight Weight: 124 lb 1.924 oz Body Mass Index (BMI) 23.4 Physical Exam Narrative Physical Examination: General: Awake, alert, oriented x 3 and cooperative, seated upright in the bed, fatigued, reports pain currently 5 out of 10 in severity in the left lower quadrant, intermittently anxious and occasionally near tearful. Skin: Normal color, normal turgor, no icterus, no cyanosis. HEENT: AT/NC, EOMI, PERRLA, dry MM, no carotid bruits or JVD noted. Lungs: CTA bilaterally, moderate effort, mild decrease BL bases, no rales, ronchi or wheezing. Heart: Regular rate and rhythm; no gallop, rub audible. Abdomen: Soft, notable tenderness to palpation primarily in the left lower quadrant with voluntary guarding, no marked distention obvious, mildly reduced bowel sounds in the left lower quadrant and left upper quadrant, hyperactive bowel sounds right lower quadrant, no obvious HSM but difficult evaluation givenpain. Extremities: No cyanosis, clubbing, or edema. Neurological: Patient awake, alert, oriented as noted, cognitive function intact; pupils equally reactive to light and accommodation, cranial nerves II-XII grossly normal, moving all 4 extremities, no focal deficits, strength moderatelyto severely global decrease secondary to acute presentation. Psychiatric: Affect appears anxious, near tearful when discussing her mother whopassed of COPD, underlying history of anxiety and depression. Results Lab / Micro Data 03/16/23 03:45 03/16/23 03:45 Labs: Laboratory Results - last 24 hr 03/16/23 03:45: WBC 8.4, RBC 3.96 L, Hgb 11.4 L, Hct 35.4 L, MCV 89.4, MCH 28.8,MCHC 32.2, RDW Std Deviation 49.0 H, RDW Coeff of Neno 14.7 H, Plt Count 361, MPV10.0, Immature Gran % (Auto) 0.400, Neut % (Auto) 48.5, Lymph % (Auto) 40.6, Maverick % (Auto) 8.3, Eos % (Auto) 1.1, Baso % (Auto) 1.1 H, Absolute Neuts (auto) 4.1, Absolute Lymphs (auto) 3.41, Nucleated RBC % 0, Sodium 139, Potassium 4.1, Chloride 109 H, Carbon Dioxide 23.0, Anion Gap 7, BUN 18, Creatinine 1.49 H, Estim Creat Clear Calc 26.13, Est GFR (MDRD) Af Amer 44 L, Est GFR (MDRD) Non-Af37 L, BUN/Creatinine Ratio 12.1, Glucose 100, Calcium 9.0, Total Bilirubin 0.60,AST 18, ALT 18, Alkaline Phosphatase 105, Total Protein 7.5, Albumin 3.6, Globulin 3.9, Albumin/Globulin Ratio 0.9 03/16/23 05:13: Urine Color Yellow, Urine Clarity Clear, Urine pH 6.0, Ur Specific [place] 1.010, Urine Protein Negative, Urine Glucose (UA) Normal, UrineKetones Negative, Urine Occult Blood Negative, Urine Nitrite Negative, Urine Bilirubin Negative, Urine Urobilinogen Normal, Ur Leukocyte Esterase 25 H, UrineRBC 0 SEEN, Urine WBC 0-5 SEEN, Ur Squamous Epith Cells 0 SEEN, Urine Bacteria 0SEEN, Urine Mucus 0 SEEN Radiology Impression Abdomen/Pelvis CT 03/16/23 03:41 IMPRESSION: Mild focally dilated small bowel in the left lower abdomen near the surgical anastomosis, similar but increased compared to prior May BE related to postsurgical change. Focal ileus, enteritis, or partial low-grade small bowel obstruction not entirely excluded. Biliary dilatation is stable compared to prior study postcholecystectomy. Electronically Signed: Jessie Brasher MD at 5:35 EDT , Assessment & Plan Assessment/Plan (1) Partial small bowel obstruction: PLAN: Plan The patient is a 72 y/o F w/ PMHx: Hypothyroidism, Anxiety and Depression, Hx VTE, HLD, GERD, Hx SBO s/p 7 prior abdominal surgeries including bowel resectionwho presents to the [facility] ED on 03/16[facility]23 with history of onset abdominal pain over the last 2 days continuous in nature, aching, associated with nausea and emesis with pain primarily focally in the left lower quadrant and no severe marked distention however patient reports last bowel movement the Sunday prior and last flatus on day prior earlier in the day prompting eventual ED evaluation secondary to concerns bowel related with associated decreased oral intake. #1. Acute intractable abdominal pain secondary to possible partial low-grade small bowel obstruction: CT abdomen pelvis with mildly focally dilated small bowel in the left lower abdomen near the surgical anastomosis similar but increased compared to prior possibly related to postsurgical change however focal ileus, enteritis or partial low-grade small bowel obstruction cannot be entirely excluded, biliary dilatation is stable compared to prior study postcholecystectomy. Will admit to [facility], maintain on IVFs, continue NGT to suction, strict I&Os, IV pain/anti-emetics PRN, serial KUB as needed to montior bowel function, PPI IV, maintain NPO on bowel rest. General surgery consulted and current plan for small bowel follow-through. #2. Anxiety and depression: We will temporally hold patient home bupropion regimen, will have as needed low-dose Ativan for anxiety and hold her Xanax regimen. #3. Hypothyroidism: We will temporally hold patient home levothyroxine regimen. #4. Hyperlipidemia: We will hold patient home ezetimibe regimen. #5. 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 #6. GERD: We will maintain IV PPI. #7. DVT prophylaxis: We will temporally hold patient home Eliquis regimen and per surgery request hold on further anticoagulation in case of OR needs. #8. Code status: Full Code. Admission Evaluation Time spent evaluating chart, patient history, patient evaluation, care planning and discussion with specialists: 75 minutes. Charges/Coding Visit Charges Inpatient E&M: 75000 Init Hosp L3 03/16/23 0631 <Electronically signed by Jessica Thomas MD> Cosigner Signature (if applicable): CC: Dr. Jessica Thomas MD; Dr. Kentrell Dhaliwal MD~ Signed ADDENDUM by Dr. Jessica Thomas MD on 03/16/23 at 0639 Addendum Additional Diagnoses: Chronic normocytic anemia: Admission hemoglobin 11.4, MCV 89.4, baseline hemoglobin noted prior 10.9, stable, continue to trend. CKD stage III unclear subtype: Admission BUN/creatinine 18/1.49, baseline creatinine of prior 1.32, likely this is stable, continue to trend. 03/16/23 0639<Electronically signed by Jessica Thomas MD> Cosigner Signature (if applicable): cc: Dr. Jessica Thomas MD; Dr. Kentrell Dhaliwal MD ~* Signed [facility] Work Phone: Hospital Discharge instructions Additional Instructions Increase Metamucil to twice a day for the next several days.[facility] Work Phone: Reason for referral (narrative)* Diagnostic Procedure Only (Routine) - Pending Review Specialty Diagnoses / Procedures Referred By Contac t Referred To Contact XR IMAGING Diagnoses History of small bowel obstruction Abdominal pain, unspecified abdominal location Procedures XR SMALL BOWEL SERIES RADIOLOGIC EXAM SMALL INT SINGLE CONTRAST STUDY Jaswant Moseley MD [address] [place] [id number] Xr Imaging Referral ID Status Reason Start Date Expiration Date Visits Requested Visits Authorized [id number] Pending Review Auto-Generat ed Referral 12/27/2021 01/26/2023 1 1 [facility] for referral (narrative)* Diagnostic Procedure Only (Routine) - Pending Review Specialty Diagnoses / Procedures Referred By Contac t Referred To Contact US IMAGING Diagnoses Generalized abdominal pain Elevated liver function tests Procedures US ABDOMEN COMPLETE US ABDOMINAL REAL TIME W/IMAGE DOCUMENTATION Kentrell Dhaliwal II, MD [address] [place] [address] [place] [address] Us Imaging Referral ID Status Reason Start Date Expiration Date Visits Requested Visits Authorized [id number] Pending Review Auto-Generat ed Referral 01/06/2022 02/05/2023 1 1 [facility] for referral (narrative)* Diagnostic Procedure Only (Routine) - Closed Specialty Diagnoses / Procedures Referred By Contac t Referred To Contact XR IMAGING Diagnoses LLQ abdominal pain Partial small bowel obstruction (HCC) Procedures XR ABDOMEN 2V ROUTINE SUPINE W UPRIGHT/DECUB/CTL RADIOLOGIC EXAM [place]BDOMEN [address] [place] [address] [place] [address] Xr Imaging Referral ID Status Reason Start Date Expiration Date V isits Requested Visits Authorized [id number] Closed Auto-Generate d Referral 07/21/2022 08/20/2023 [facility] Diagnostic Procedure Only (Routine) - Closed Specialty Diagnoses / Procedures Referred By Contac t Referred To Contact XR IMAGING Diagnoses LLQ abdominal pain Partial small bowel obstruction (HCC) Procedures XR ABDOMEN 2V ROUTINE SUPINE W UPRIGHT/DECUB/CTL RADIOLOGIC EXAM ABDOMEN 2 [place] [address] [place] [id number] [place] [address] Referral ID Status Reason Start Date Expiration Date V isits Requested Visits Authorized [id number] Closed Auto-Generate d Referral 07/21/2022 08/20/2023 1 1 [facility] Reason for Referral Specialty Diagnoses / Procedures Referred By Contac t Referred To Contact CT IMAGING Diagnoses Adverse effect of treatment, initial encounter Peritoneal abscess (HCC) Procedures CT ABD/PEL W IVCON CT ABD & PELVIS W/CONTRAST Jaswant Moseley MD [address] [place] [address] Ct Imaging Referral ID Status Reason Start Date Expiration Date Visits Requested Visits Authorized [id number] Pending Review Auto-Generat ed Referral 12/05/2021 01/04/2023 1 1 Specialty Diagnoses / Procedures Referred By Contac t Referred To Contact [facility] Diagnoses Generalized weakness SBO (small bowel obstruction) (HCC) Fatigue, unspecified type Type 2 diabetes mellitus without complication, without long-term current use of insulin (HCC) Parkinson's disease (HCC) Procedures CONSULT TO PHYSICAL THERAPY PHYSICAL THERAPY EVALUATION HIGH COMPLEX 45 MINS Kentrell Dhaliwal II, MD [address] [place] [place] [address] [facility] [place] [address] [place] [id number] Referral ID Status Reason Start Date Expiration Date Visits Requested Visits Authorized [id number] Pending Review Auto-Generat ed Referral 01/10/2022 01/09/2023 1 1 Specialty Diagnoses / Procedures Referred By Contvanessa t Referred To Contact Diagnoses Kentrell Romero II, MD [address] [place] [address] Referral ID Status Reason Start Date Expiration Date V isits Requested Visits Authorized [id number] Pending Review 1 1 Referral ID Status Reason Start Date Expiration Date V isits Requested Visits Authorized [id number] Pending Review 1 1 Summary Purpose Family History No Family History Records Found Relationship Condition Age at Onset Recorded Date/T hugh mother Cardiac disease Unknown Chronic obstructive pulmonary disease Unk nown father Cardiac disease Unknown Hypertension Unknown Coronary artery disease Unknown Myocardial infarction Unknown Advance Directives No Advanced Directives Records Found Advance Directive Response Recorded Date/ Time Living Will No December 11, 2022 10:18pm Power of Technologist Infectious Disease No December 11 10:18pm Advance Directive Response Recorded Date/ Time Name of Medical Power of Technologist Infectious Disease FARHAD ABARCA March 16, 2023 3:35am Living Will Yes March 16, 2023 3:35am Power of Technologist Infectious Disease Yes March 16 3:35am Advance Directive Response Recorded Date/ Time Name of Medical Power of Technologist Infectious Disease FARHAD ABARCA March 16, 2023 7:37am Living Will Yes March 16, 2023 7:37am Power of Technologist Infectious Disease Yes March 16 7:37am Advance Directive Response Recorded Date/ Time Name of Medical Power of Technologist Infectious Disease FARHAD ABARCA March 16, 2023 7:37am Living Will No March 31, 2023 11:16pm Power of Technologist Infectious Disease No March 31 11:16pm Advance Directive Response Recorded Date/ Time Living Will No December 06, 2023 5:08pm Power of Technologist Infectious Disease No December 05 5:08pm Advance Directive Response Recorded Date/ Time Name of Medical Power of Technologist Infectious Disease [place] December 07, 2023 1:09am Living Will Yes December 07, 2023 1:09am Power of Technologist Infectious Disease Yes December 06 1:09am Advance Directive Response Recorded Date/ Time Name of Medical Power of Technologist Infectious Disease [place] ([place]) December 07, 2023 1:09am Name of Medical Power of Technologist Infectious Disease ROSARIO BRAVO December 13, 2023 10:24am Living Will Yes December 13, 2023 10:24am Power of Technologist Infectious Disease Yes December 12 10:24am Health Concerns Infection Onset Date Last Indicated Resolved Time COVID-19 Rule-Out 04/21/2022 04/21/2022 04/21/2022 11:39 AM EDT Infection Onset Date Last Indicated Resolved Time COVID-19 Rule-Out 05/09/2022 05/09/2022 05/09/2022 1:39 AM EDT Infection Onset Date Last Indicated Resolved Time COVID-19 Rule-Out 07/14/2022 07/14/2022 07/14/2022 3:58 AM EDT Infection Onset Date Last Indicated Resolved Time COVID-19 Rule-Out 10/30/2021 10/30/2021 10/30/2021 1:31 PM EST COVID-19 Rule-Out 11/16/2021 11/16/202111/16/2021 3:00 AM EST COVID-19 Rule-Out 11/23/2021 11/23/2021 11/23/2021 10:05 AM EST COVID-19 Rule-Out 12/20/2021 12/20/2021 02/25/2022 8:53 PM EDT COVID-19 Rule-Out 01/28/2022 01/28/2022 01/28/2022 1:55 PM EDT COVID-19 Rule-Out 04/21/2022 04/21/2022 04/21/2022 11:39 AM EDT COVID-19 Rule-Out 05/09/2022 05/09/2022 05/09/2022 1:39 AM EDT COVID-19 Rule-Out 07/14/2022 07/14/2022 07/14/2022 3:58 AM EDT Chief Complaint and Reason for Visit Chief Complaint ABD PAIN Chief Complaint ABD PAIN PARTIAL SBO PARTIAL SBO Reason for Visit Partial small bowel obstruction Chief Complaint ABD PAIN PARTIAL SBO PARTIAL SBO PARTIAL SBO PARTIAL SBO PARTIAL SBO PARTIAL SBO PARTIAL SBO Reason for Visit Constipation Partial small bowel obstruction Chief Complaint ABD PAIN PARTIAL SBO PARTIAL SBO PARTIAL SBO PARTIAL SBO PARTIAL SBO PARTIAL SBO PARTIAL SBO ABD PAIN Reason for Visit Constipation Partial small bowel obstruction Chief Complaint pSBO abd pain starting sat night. 06/26 today constant Reason for Visit SBO (small bowel obs truction) Chief Complaint pSBO abd pain starting sat night. 06/26 today constant pSBO pSBO pSBO pSBO pSBO pSBO pSBO pSBO Reason for Visit Abdominal pain SBO (small bowel obstruction) Chief Complaint pSBO abd pain starting sat night. 06/26 today constant pSBO pSBO pSBO pSBO pSBO pSBO pSBO pSBO pSBO ABD PAIN Reason for Visit Abdominal pain SBO (small bowel obstruction) Additional Source Comments Source Comments (unrecognize d section and content) In the event this informatio n is protected by the Federal Confidentiality of Alcohol and Drug Abuse Patient Records regulations: The Federal rules restrict any use of the information to criminally investigate or prosecute any alcohol or drug abuse patient.[facility] the event this information is protected by the Federal Confidentiality of Alcohol and Drug Abuse Patient Records regulations: The Federal rules restrict any use of the information to criminally investigate or prosecute any alcohol or drug abuse patient.[facility] the event this information is protected by the Federal Confidentiality of Alcohol and Drug Abuse Patient Records regulations: The Federal rules restrict any use of the information to criminally investigate or prosecute any alcohol or drug abuse patient.[facility] the event this information is protected by the Federal Confidentiality of Alcohol and Drug Abuse Patient Records regulations: The Federal rules restrict any use of the information to criminally investigate or prosecute any alcohol or drug abuse patient.[facility] the event this information is protected by the Federal Confidentiality of Alcohol and Drug Abuse Patient Records regulations: The Federal rules restrict any use of the information to criminally investigate or prosecute any alcohol or drug abuse patient.[facility] the event this information is protected by the Federal Confidentiality of Alcohol and Drug Abuse Patient Records regulations: The Federal rules restrict any use of the information to criminally investigate or prosecute any alcohol or drug abuse patient.[facility] the event this information is protected by the Federal Confidentiality of Alcohol and Drug Abuse Patient Records regulations: The Federal rules restrict any use of the information to criminally investigate or prosecute any alcohol or drug abuse patient.[facility] the event this information is protected by the Federal Confidentiality of Alcohol and Drug Abuse Patient Records regulations: The Federal rules restrict any use of the information to criminally investigate or prosecute any alcohol or drug abuse patient.[facility] the event this information is protected by the Federal Confidentiality of Alcohol and Drug Abuse Patient Records regulations: The Federal rules restrict any use of the information to criminally investigate or prosecute any alcohol or drug abuse patient.[facility] the event this information is protected by the Federal Confidentiality of Alcohol and Drug Abuse Patient Records regulations: The Federal rules restrict any use of the information to criminally investigate or prosecute any alcohol or drug abuse patient.[facility] the event this information is protected by the Federal Confidentiality of Alcohol and Drug Abuse Patient Records regulations: The Federal rules restrict any use of the information to criminally investigate or prosecute any alcohol or drug abuse patient.[facility] the event this information is protected by the Federal Confidentiality of Alcohol and Drug Abuse Patient Records regulations: The Federal rules restrict any use of the information to criminally investigate or prosecute any alcohol or drug abuse patient.[facility] the event this information is protected by the Federal Confidentiality of Alcohol and Drug Abuse Patient Records regulations: The Federal rules restrict any use of the information to criminally investigate or prosecute any alcohol or drug abuse patient.[facility] the event this information is protected by the Federal Confidentiality of Alcohol and Drug Abuse Patient Records regulations: The Federal rules restrict any use of the information to criminally investigate or prosecute any alcohol or drug abuse patient.[facility] the event this information is protected by the Federal Confidentiality of Alcohol and Drug Abuse Patient Records regulations: The Federal rules restrict any use of the information to criminally investigate or prosecute any alcohol or drug abuse patient.[facility] the event this information is protected by the Federal Confidentiality of Alcohol and Drug Abuse Patient Records regulations: The Federal rules restrict any use of the information to criminally investigate or prosecute any alcohol or drug abuse patient.[facility] the event this information is protected by the Federal Confidentiality of Alcohol and Drug Abuse Patient Records regulations: The Federal rules restrict any use of the information to criminally investigate or prosecute any alcohol or drug abuse patient.[facility] the event this information is protected by the Federal Confidentiality of Alcohol and Drug Abuse Patient Records regulations: The Federal rules restrict any use of the information to criminally investigate or prosecute any alcohol or drug abuse patient.[facility] the event this information is protected by the Federal Confidentiality of Alcohol and Drug Abuse Patient Records regulations: The Federal rules restrict any use of the information to criminally investigate or prosecute any alcohol or drug abuse patient.[facility] the event this information is protected by the Federal Confidentiality of Alcohol and Drug Abuse Patient Records regulations: The Federal rules restrict any use of the information to criminally investigate or prosecute any alcohol or drug abuse patient.[facility] the event this information is protected by the Federal Confidentiality of Alcohol and Drug Abuse Patient Records regulations: The Federal rules restrict any use of the information to criminally investigate or prosecute any alcohol or drug abuse patient.[facility] the event this information is protected by the Federal Confidentiality of Alcohol and Drug Abuse Patient Records regulations: The Federal rules restrict any use of the information to criminally investigate or prosecute any alcohol or drug abuse patient.[facility] the event this information is protected by the Federal Confidentiality of Alcohol and Drug Abuse Patient Records regulations: The Federal rules restrict any use of the information to criminally investigate or prosecute any alcohol or drug abuse patient.[facility] the event this information is protected by the Federal Confidentiality of Alcohol and Drug Abuse Patient Records regulations: The Federal rules restrict any use of the information to criminally investigate or prosecute any alcohol or drug abuse patient.[facility] the event this information is protected by the Federal Confidentiality of Alcohol and Drug Abuse Patient Records regulations: The Federal rules restrict any use of the information to criminally investigate or prosecute any alcohol or drug abuse patient.[facility] the event this information is protected by the Federal Confidentiality of Alcohol and Drug Abuse Patient Records regulations: The Federal rules restrict any use of the information to criminally investigate or prosecute any alcohol or drug abuse patient.[facility] the event this information is protected by the Federal Confidentiality of Alcohol and Drug Abuse Patient Records regulations: The Federal rules restrict any use of the information to criminally investigate or prosecute any alcohol or drug abuse patient.[facility] the event this information is protected by the Federal Confidentiality of Alcohol and Drug Abuse Patient Records regulations: The Federal rules restrict any use of the information to criminally investigate or prosecute any alcohol or drug abuse patient.[facility] the event this information is protected by the Federal Confidentiality of Alcohol and Drug Abuse Patient Records regulations: The Federal rules restrict any use of the information to criminally investigate or prosecute any alcohol or drug abuse patient.[facility] the event this information is protected by the Federal Confidentiality of Alcohol and Drug Abuse Patient Records regulations: The Federal rules restrict any use of the information to criminally investigate or prosecute any alcohol or drug abuse patient.[facility] the event this information is protected by the Federal Confidentiality of Alcohol and Drug Abuse Patient Records regulations: The Federal rules restrict any use of the information to criminally investigate or prosecute any alcohol or drug abuse patient.[facility] the event this information is protected by the Federal Confidentiality of Alcohol and Drug Abuse Patient Records regulations: The Federal rules restrict any use of the information to criminally investigate or prosecute any alcohol or drug abuse patient.[facility] the event this information is protected by the Federal Confidentiality of Alcohol and Drug Abuse Patient Records regulations: The Federal rules restrict any use of the information to criminally investigate or prosecute any alcohol or drug abuse patient.[facility] the event this information is protected by the Federal Confidentiality of Alcohol and Drug Abuse Patient Records regulations: The Federal rules restrict any use of the information to criminally investigate or prosecute any alcohol or drug abuse patient.[facility] the event this information is protected by the Federal Confidentiality of Alcohol and Drug Abuse Patient Records regulations: The Federal rules restrict any use of the information to criminally investigate or prosecute any alcohol or drug abuse patient.[facility] the event this information is protected by the Federal Confidentiality of Alcohol and Drug Abuse Patient Records regulations: The Federal rules restrict any use of the information to criminally investigate or prosecute any alcohol or drug abuse patient.[facility] the event this information is protected by the Federal Confidentiality of Alcohol and Drug Abuse Patient Records regulations: The Federal rules restrict any use of the information to criminally investigate or prosecute any alcohol or drug abuse patient.[facility] the event this information is protected by the Federal Confidentiality of Alcohol and Drug Abuse Patient Records regulations: The Federal rules restrict any use of the information to criminally investigate or prosecute any alcohol or drug abuse patient.[facility] the event this information is protected by the Federal Confidentiality of Alcohol and Drug Abuse Patient Records regulations: The Federal rules restrict any use of the information to criminally investigate or prosecute any alcohol or drug abuse patient.[facility] the event this information is protected by the Federal Confidentiality of Alcohol and Drug Abuse Patient Records regulations: The Federal rules restrict any use of the information to criminally investigate or prosecute any alcohol or drug abuse patient.[facility] the event this information is protected by the Federal Confidentiality of Alcohol and Drug Abuse Patient Records regulations: The Federal rules restrict any use of the information to criminally investigate or prosecute any alcohol or drug abuse patient.[facility] the event this information is protected by the Federal Confidentiality of Alcohol and Drug Abuse Patient Records regulations: The Federal rules restrict any use of the information to criminally investigate or prosecute any alcohol or drug abuse patient.[facility]In the event this information is protected by the Federal Confidentiality of Alcohol and Drug Abuse Patient Records regulations: The Federal rules restrict any use of the information to criminally investigate or prosecute any alcohol or drug abuse patient.[facility]In the event this information is protected by the Federal Confidentiality of Alcohol and Drug Abuse Patient Records regulations: The Federal rules restrict any use of the information to criminally investigate or prosecute any alcohol or drug abuse patient.[facility]In the event this information is protected by the Federal Confidentiality of Alcohol and Drug Abuse Patient Records regulations: The Federal rules restrict any use of the information to criminally investigate or prosecute any alcohol or drug abuse patient.[facility]In the event this information is protected by the Federal Confidentiality of Alcohol and Drug Abuse Patient Records regulations: The Federal rules restrict any use of the information to criminally investigate or prosecute any alcohol or drug abuse patient.[facility]In the event this information is protected by the Federal Confidentiality of Alcohol and Drug Abuse Patient Records regulations: The Federal rules restrict any use of the information to criminally investigate or prosecute any alcohol or drug abuse patient.[facility]In the event this information is protected by the Federal Confidentiality of Alcohol and Drug Abuse Patient Records regulations: The Federal rules restrict any use of the information to criminally investigate or prosecute any alcohol or drug abuse patient.[facility]In the event this information is protected by the Federal Confidentiality of Alcohol and Drug Abuse Patient Records regulations: The Federal rules restrict any use of the information to criminally investigate or prosecute any alcohol or drug abuse patient.[facility]In the event this information is protected by the Federal Confidentiality of Alcohol and Drug Abuse Patient Records regulations: The Federal rules restrict any use of the information to criminally investigate or prosecute any alcohol or drug abuse patient.[facility]In the event this information is protected by the Federal Confidentiality of Alcohol and Drug Abuse Patient Records regulations: The Federal rules restrict any use of the information to criminally investigate or prosecute any alcohol or drug abuse patient.[facility]In the event this information is protected by the Federal Confidentiality of Alcohol and Drug Abuse Patient Records regulations: The Federal rules restrict any use of the information to criminally investigate or prosecute any alcohol or drug abuse patient.[facility]In the event this information is protected by the Federal Confidentiality of Alcohol and Drug Abuse Patient Records regulations: The Federal rules restrict any use of the information to criminally investigate or prosecute any alcohol or drug abuse patient.[facility]In the event this information is protected by the Federal Confidentiality of Alcohol and Drug Abuse Patient Records regulations: The Federal rules restrict any use of the information to criminally investigate or prosecute any alcohol or drug abuse patient.[facility]In the event this information is protected by the Federal Confidentiality of Alcohol and Drug Abuse Patient Records regulations: The Federal rules restrict any use of the information to criminally investigate or prosecute any alcohol or drug abuse patient.[facility]In the event this information is protected by the Federal Confidentiality of Alcohol and Drug Abuse Patient Records regulations: The Federal rules restrict any use of the information to criminally investigate or prosecute any alcohol or drug abuse patient.[facility]In the event this information is protected by the Federal Confidentiality of Alcohol and Drug Abuse Patient Records regulations: The Federal rules restrict any use of the information to criminally investigate or prosecute any alcohol or drug abuse patient.[facility]In the event this information is protected by the Federal Confidentiality of Alcohol and Drug Abuse Patient Records regulations: The Federal rules restrict any use of the information to criminally investigate or prosecute any alcohol or drug abuse patient.[facility]In the event this information is protected by the Federal Confidentiality of Alcohol and Drug Abuse Patient Records regulations: The Federal rules restrict any use of the information to criminally investigate or prosecute any alcohol or drug abuse patient.[facility]In the event this information is protected by the Federal Confidentiality of Alcohol and Drug Abuse Patient Records regulations: The Federal rules restrict any use of the information to criminally investigate or prosecute any alcohol or drug abuse patient.[facility]In the event this information is protected by the Federal Confidentiality of Alcohol and Drug Abuse Patient Records regulations: The Federal rules restrict any use of the information to criminally investigate or prosecute any alcohol or drug abuse patient.[facility]In the event this information is protected by the Federal Confidentiality of Alcohol and Drug Abuse Patient Records regulations: The Federal rules restrict any use of the information to criminally investigate or prosecute any alcohol or drug abuse patient.[facility]In the event this information is protected by the Federal Confidentiality of Alcohol and Drug Abuse Patient Records regulations: The Federal rules restrict any use of the information to criminally investigate or prosecute any alcohol or drug abuse patient.[facility]In the event this information is protected by the Federal Confidentiality of Alcohol and Drug Abuse Patient Records regulations: The Federal rules restrict any use of the information to criminally investigate or prosecute any alcohol or drug abuse patient.[facility]In the event this information is protected by the Federal Confidentiality of Alcohol and Drug Abuse Patient Records regulations: The Federal rules restrict any use of the information to criminally investigate or prosecute any alcohol or drug abuse patient.[facility]In the event this information is protected by the Federal Confidentiality of Alcohol and Drug Abuse Patient Records regulations: The Federal rules restrict any use of the information to criminally investigate or prosecute any alcohol or drug abuse patient.[facility]In the event this information is protected by the Federal Confidentiality of Alcohol and Drug Abuse Patient Records regulations: The Federal rules restrict any use of the information to criminally investigate or prosecute any alcohol or drug abuse patient.[facility]In the event this information is protected by the Federal Confidentiality of Alcohol and Drug Abuse Patient Records regulations: The Federal rules restrict any use of the information to criminally investigate or prosecute any alcohol or drug abuse patient.[facility]In the event this information is protected by the Federal Confidentiality of Alcohol and Drug Abuse Patient Records regulations: The Federal rules restrict any use of the information to criminally investigate or prosecute any alcohol or drug abuse patient.[facility]In the event this information is protected by the Federal Confidentiality of Alcohol and Drug Abuse Patient Records regulations: The Federal rules restrict any use of the information to criminally investigate or prosecute any alcohol or drug abuse patient.[facility]In the event this information is protected by the Federal Confidentiality of Alcohol and Drug Abuse Patient Records regulations: The Federal rules restrict any use of the information to criminally investigate or prosecute any alcohol or drug abuse patient.[facility]In the event this information is protected by the Federal Confidentiality of Alcohol and Drug Abuse Patient Records regulations: The Federal rules restrict any use of the information to criminally investigate or prosecute any alcohol or drug abuse patient.[facility]In the event this information is protected by the Federal Confidentiality of Alcohol and Drug Abuse Patient Records regulations: The Federal rules restrict any use of the information to criminally investigate or prosecute any alcohol or drug abuse patient.[facility]In the event this information is protected by the Federal Confidentiality of Alcohol and Drug Abuse Patient Records regulations: The Federal rules restrict any use of the information to criminally investigate or prosecute any alcohol or drug abuse patient.[facility]In the event this information is protected by the Federal Confidentiality of Alcohol and Drug Abuse Patient Records regulations: The Federal rules restrict any use of the information to criminally investigate or prosecute any alcohol or drug abuse patient.[facility]In the event this information is protected by the Federal Confidentiality of Alcohol and Drug Abuse Patient Records regulations: The Federal rules restrict any use of the information to criminally investigate or prosecute any alcohol or drug abuse patient.[facility]In the event this information is protected by the Federal Confidentiality of Alcohol and Drug Abuse Patient Records regulations: The Federal rules restrict any use of the information to criminally investigate or prosecute any alcohol or drug abuse patient.[facility]In the event this information is protected by the Federal Confidentiality of Alcohol and Drug Abuse Patient Records regulations: The Federal rules restrict any use of the information to criminally investigate or prosecute any alcohol or drug abuse patient.[facility]In the event this information is protected by the Federal Confidentiality of Alcohol and Drug Abuse Patient Records regulations: The Federal rules restrict any use of the information to criminally investigate or prosecute any alcohol or drug abuse patient.[facility]In the event this information is protected by the Federal Confidentiality of Alcohol and Drug Abuse Patient Records regulations: The Federal rules restrict any use of the information to criminally investigate or prosecute any alcohol or drug abuse patient.[facility]In the event this information is protected by the Federal Confidentiality of Alcohol and Drug Abuse Patient Records regulations: The Federal rules restrict any use of the information to criminally investigate or prosecute any alcohol or drug abuse patient.[facility]In the event this information is protected by the Federal Confidentiality of Alcohol and Drug Abuse Patient Records regulations: The Federal rules restrict any use of the information to criminally investigate or prosecute any alcohol or drug abuse patient.[facility]In the event this information is protected by the Federal Confidentiality of Alcohol and Drug Abuse Patient Records regulations: The Federal rules restrict any use of the information to criminally investigate or prosecute any alcohol or drug abuse patient.[facility]In the event this information is protected by the Federal Confidentiality of Alcohol and Drug Abuse Patient Records regulations: The Federal rules restrict any use of the information to criminally investigate or prosecute any alcohol or drug abuse patient.[facility]In the event this information is protected by the Federal Confidentiality of Alcohol and Drug Abuse Patient Records regulations: The Federal rules restrict any use of the information to criminally investigate or prosecute any alcohol or drug abuse patient.[facility]In the event this information is protected by the Federal Confidentiality of Alcohol and Drug Abuse Patient Records regulations: The Federal rules restrict any use of the information to criminally investigate or prosecute any alcohol or drug abuse patient.[facility]In the event this information is protected by the Federal Confidentiality of Alcohol and Drug Abuse Patient Records regulations: The Federal rules restrict any use of the information to criminally investigate or prosecute any alcohol or drug abuse patient.[facility]In the event this information is protected by the Federal Confidentiality of Alcohol and Drug Abuse Patient Records regulations: The Federal rules restrict any use of the information to criminally investigate or prosecute any alcohol or drug abuse patient.[facility]In the event this information is protected by the Federal Confidentiality of Alcohol and Drug Abuse Patient Records regulations: The Federal rules restrict any use of the information to criminally investigate or prosecute any alcohol or drug abuse patient.[facility]In the event this information is protected by the Federal Confidentiality of Alcohol and Drug Abuse Patient Records regulations: The Federal rules restrict any use of the information to criminally investigate or prosecute any alcohol or drug abuse patient.[facility]In the event this information is protected by the Federal Confidentiality of Alcohol and Drug Abuse Patient Records regulations: The Federal rules restrict any use of the information to criminally investigate or prosecute any alcohol or drug abuse patient.[facility]In the event this information is protected by the Federal Confidentiality of Alcohol and Drug Abuse Patient Records regulations: The Federal rules restrict any use of the information to criminally investigate or prosecute any alcohol or drug abuse patient.[facility]In the event this information is protected by the Federal Confidentiality of Alcohol and Drug Abuse Patient Records regulations: The Federal rules restrict any use of the information to criminally investigate or prosecute any alcohol or drug abuse patient.[facility]In the event this information is protected by the Federal Confidentiality of Alcohol and Drug Abuse Patient Records regulations: The Federal rules restrict any use of the information to criminally investigate or prosecute any alcohol or drug abuse patient.[facility]In the event this information is protected by the Federal Confidentiality of Alcohol and Drug Abuse Patient Records regulations: The Federal rules restrict any use of the information to criminally investigate or prosecute any alcohol or drug abuse patient.[facility]In the event this information is protected by the Federal Confidentiality of Alcohol and Drug Abuse Patient Records regulations: The Federal rules restrict any use of the information to criminally investigate or prosecute any alcohol or drug abuse patient.[facility]In the event this information is protected by the Federal Confidentiality of Alcohol and Drug Abuse Patient Records regulations: The Federal rules restrict any use of the information to criminally investigate or prosecute any alcohol or drug abuse patient.[facility]In the event this information is protected by the Federal Confidentiality of Alcohol and Drug Abuse Patient Records regulations: The Federal rules restrict any use of the information to criminally investigate or prosecute any alcohol or drug abuse patient.[facility]In the event this information is protected by the Federal Confidentiality of Alcohol and Drug Abuse Patient Records regulations: The Federal rules restrict any use of the information to criminally investigate or prosecute any alcohol or drug abuse patient.[facility]In the event this information is protected by the Federal Confidentiality of Alcohol and Drug Abuse Patient Records regulations: The Federal rules restrict any use of the information to criminally investigate or prosecute any alcohol or drug abuse patient.[facility]In the event this information is protected by the Federal Confidentiality of Alcohol and Drug Abuse Patient Records regulations: The Federal rules restrict any use of the information to criminally investigate or prosecute any alcohol or drug abuse patient.[facility]In the event this information is protected by the Federal Confidentiality of Alcohol and Drug Abuse Patient Records regulations: The Federal rules restrict any use of the information to criminally investigate or prosecute any alcohol or drug abuse patient.[facility]In the event this information is protected by the Federal Confidentiality of Alcohol and Drug Abuse Patient Records regulations: The Federal rules restrict any use of the information to criminally investigate or prosecute any alcohol or drug abuse patient.[facility]In the event this information is protected by the Federal Confidentiality of Alcohol and Drug Abuse Patient Records regulations: The Federal rules restrict any use of the information to criminally investigate or prosecute any alcohol or drug abuse patient.[facility]In the event this information is protected by the Federal Confidentiality of Alcohol and Drug Abuse Patient Records regulations: The Federal rules restrict any use of the information to criminally investigate or prosecute any alcohol or drug abuse patient.[facility]In the event this information is protected by the Federal Confidentiality of Alcohol and Drug Abuse Patient Records regulations: The Federal rules restrict any use of the information to criminally investigate or prosecute any alcohol or drug abuse patient.[facility]In the event this information is protected by the Federal Confidentiality of Alcohol and Drug Abuse Patient Records regulations: The Federal rules restrict any use of the information to criminally investigate or prosecute any alcohol or drug abuse patient.[facility]In the event this information is protected by the Federal Confidentiality of Alcohol and Drug Abuse Patient Records regulations: The Federal rules restrict any use of the information to criminally investigate or prosecute any alcohol or drug abuse patient.[facility]In the event this information is protected by the Federal Confidentiality of Alcohol and Drug Abuse Patient Records regulations: The Federal rules restrict any use of the information to criminally investigate or prosecute any alcohol or drug abuse patient.[facility]In the event this information is protected by the Federal Confidentiality of Alcohol and Drug Abuse Patient Records regulations: The Federal rules restrict any use of the information to criminally investigate or prosecute any alcohol or drug abuse patient.[facility]In the event this information is protected by the Federal Confidentiality of Alcohol and Drug Abuse Patient Records regulations: The Federal rules restrict any use of the information to criminally investigate or prosecute any alcohol or drug abuse patient.[facility]In the event this information is protected by the Federal Confidentiality of Alcohol and Drug Abuse Patient Records regulations: The Federal rules restrict any use of the information to criminally investigate or prosecute any alcohol or drug abuse patient.[facility]In the event this information is protected by the Federal Confidentiality of Alcohol and Drug Abuse Patient Records regulations: The Federal rules restrict any use of the information to criminally investigate or prosecute any alcohol or drug abuse patient.[facility]In the event this information is protected by the Federal Confidentiality of Alcohol and Drug Abuse Patient Records regulations: The Federal rules restrict any use of the information to criminally investigate or prosecute any alcohol or drug abuse patient.[facility]In the event this information is protected by the Federal Confidentiality of Alcohol and Drug Abuse Patient Records regulations: The Federal rules restrict any use of the information to criminally investigate or prosecute any alcohol or drug abuse patient.[facility]In the event this information is protected by the Federal Confidentiality of Alcohol and Drug Abuse Patient Records regulations: The Federal rules restrict any use of the information to criminally investigate or prosecute any alcohol or drug abuse patient.[facility]In the event this information is protected by the Federal Confidentiality of Alcohol and Drug Abuse Patient Records regulations: The Federal rules restrict any use of the information to criminally investigate or prosecute any alcohol or drug abuse patient.[facility]In the event this information is protected by the Federal Confidentiality of Alcohol and Drug Abuse Patient Records regulations: The Federal rules restrict any use of the information to criminally investigate or prosecute any alcohol or drug abuse patient.[facility]In the event this information is protected by the Federal Confidentiality of Alcohol and Drug Abuse Patient Records regulations: The Federal rules restrict any use of the information to criminally investigate or prosecute any alcohol or drug abuse patient.[facility]In the event this information is protected by the Federal Confidentiality of Alcohol and Drug Abuse Patient Records regulations: The Federal rules restrict any use of the information to criminally investigate or prosecute any alcohol or drug abuse patient.[facility]In the event this information is protected by the Federal Confidentiality of Alcohol and Drug Abuse Patient Records regulations: The Federal rules restrict any use of the information to criminally investigate or prosecute any alcohol or drug abuse patient.[facility]In the event this information is protected by the Federal Confidentiality of Alcohol and Drug Abuse Patient Records regulations: The Federal rules restrict any use of the information to criminally investigate or prosecute any alcohol or drug abuse patient.[facility]In the event this information is protected by the Federal Confidentiality of Alcohol and Drug Abuse Patient Records regulations: The Federal rules restrict any use of the information to criminally investigate or prosecute any alcohol or drug abuse patient.[facility]In the event this information is protected by the Federal Confidentiality of Alcohol and Drug Abuse Patient Records regulations: The Federal rules restrict any use of the information to criminally investigate or prosecute any alcohol or drug abuse patient.[facility] [place] the event this information is protected by the Federal Confidentiality of Alcohol and Drug Abuse Patient Records regulations: The Federal rules restrict any use of the information to criminally investigate or prosecute any alcohol or drug abuse patient.[facility] [place] [facility] the event this information is protected by the Federal Confidentiality of Alcohol and Drug Abuse Patient Records regulations: The Federal rules restrict any use of the information to criminally investigate or prosecute any alcohol or drug abuse patient.[facility] [place]In the event this information is protected by the Federal Confidentiality of Alcohol and Drug Abuse Patient Records regulations: The Federal rules restrict any use of the information to criminally investigate or prosecute any alcohol or drug abuse patient.[facility] [place]In the event this information is protected by the Federal Confidentiality of Alcohol and Drug Abuse Patient Records regulations: The Federal rules restrict any use of the information to criminally investigate or prosecute any alcohol or drug abuse patient.[facility] [place] the event this information is protected by the Federal Confidentiality of Alcohol and Drug Abuse Patient Records regulations: The Federal rules restrict any use of the information to criminally investigate or prosecute any alcohol or drug abuse patient.[facility] [place] the event this information is protected by the Federal Confidentiality of Alcohol and Drug Abuse Patient Records regulations: The Federal rules restrict any use of the information to criminally investigate or prosecute any alcohol or drug abuse patient.[facility] [place] [facility] the event this information is protected by the Federal Confidentiality of Alcohol and Drug Abuse Patient Records regulations: The Federal rules restrict any use of the information to criminally investigate or prosecute any alcohol or drug abuse patient.[facility] [place]In the event this information is protected by the Federal Confidentiality of Alcohol and Drug Abuse Patient Records regulations: The Federal rules restrict any use of the information to criminally investigate or prosecute any alcohol or drug abuse patient.[facility] [place] [facility]In the event this information is protected by the Federal Confidentiality of Alcohol and Drug Abuse Patient Records regulations: The Federal rules restrict any use of the information to criminally investigate or prosecute any alcohol or drug abuse patient.[facility] [place]In the event this information is protected by the Federal Confidentiality of Alcohol and Drug Abuse Patient Records regulations: The Federal rules restrict any use of the information to criminally investigate or prosecute any alcohol or drug abuse patient.[facility] [place] the event this information is protected by the Federal Confidentiality of Alcohol and Drug Abuse Patient Records regulations: The Federal rules restrict any use of the information to criminally investigate or prosecute any alcohol or drug abuse patient.[facility] [place]In the event this information is protected by the Federal Confidentiality of Alcohol and Drug Abuse Patient Records regulations: The Federal rules restrict any use of the information to criminally investigate or prosecute any alcohol or drug abuse patient.[facility] [place]In the event this information is protected by the Federal Confidentiality of Alcohol and Drug Abuse Patient Records regulations: The Federal rules restrict any use of the information to criminally investigate or prosecute any alcohol or drug abuse patient.[facility] [place] [facility]In the event this information is protected by the Federal Confidentiality of Alcohol and Drug Abuse Patient Records regulations: The Federal rules restrict any use of the information to criminally investigate or prosecute any alcohol or drug abuse patient.[facility] [place]In the event this information is protected by the Federal Confidentiality of Alcohol and Drug Abuse Patient Records regulations: The Federal rules restrict any use of the information to criminally investigate or prosecute any alcohol or drug abuse patient.[facility] [place]In the event this information is protected by the Federal Confidentiality of Alcohol and Drug Abuse Patient Records regulations: The Federal rules restrict any use of the information to criminally investigate or prosecute any alcohol or drug abuse patient.[facility] [place]In the event this information is protected by the Federal Confidentiality of Alcohol and Drug Abuse Patient Records regulations: The Federal rules restrict any use of the information to criminally investigate or prosecute any alcohol or drug abuse patient.[facility] [place]In the event this information is protected by the Federal Confidentiality of Alcohol and Drug Abuse Patient Records regulations: The Federal rules restrict any use of the information to criminally investigate or prosecute any alcohol or drug abuse patient.[facility] [place]In the event this information is protected by the Federal Confidentiality of Alcohol and Drug Abuse Patient Records regulations: The Federal rules restrict any use of the information to criminally investigate or prosecute any alcohol or drug abuse patient.[facility] [place]In the event this information is protected by the Federal Confidentiality of Alcohol and Drug Abuse Patient Records regulations: The Federal rules restrict any use of the information to criminally investigate or prosecute any alcohol or drug abuse patient.[facility] [place] the event this information is protected by the Federal Confidentiality of Alcohol and Drug Abuse Patient Records regulations: The Federal rules restrict any use of the information to criminally investigate or prosecute any alcohol or drug abuse patient.[facility] [place] the event this information is protected by the Federal Confidentiality of Alcohol and Drug Abuse Patient Records regulations: The Federal rules restrict any use of the information to criminally investigate or prosecute any alcohol or drug abuse patient.[facility] [place] the event this information is protected by the Federal Confidentiality of Alcohol and Drug Abuse Patient Records regulations: The Federal rules restrict any use of the information to criminally investigate or prosecute any alcohol or drug abuse patient.[facility] [place]In the event this information is protected by the Federal Confidentiality of Alcohol and Drug Abuse Patient Records regulations: The Federal rules restrict any use of the information to criminally investigate or prosecute any alcohol or drug abuse patient.[facility] [place]In the event this information is protected by the Federal Confidentiality of Alcohol and Drug Abuse Patient Records regulations: The Federal rules restrict any use of the information to criminally investigate or prosecute any alcohol or drug abuse patient.[facility] [place]In the event this information is protected by the Federal Confidentiality of Alcohol and Drug Abuse Patient Records regulations: The Federal rules restrict any use of the information to criminally investigate or prosecute any alcohol or drug abuse patient.[facility] [place] the event this information is protected by the Federal Confidentiality of Alcohol and Drug Abuse Patient Records regulations: The Federal rules restrict any use of the information to criminally investigate or prosecute any alcohol or drug abuse patient.[facility] [place]In the event this information is protected by the Federal Confidentiality of Alcohol and Drug Abuse Patient Records regulations: The Federal rules restrict any use of the information to criminally investigate or prosecute any alcohol or drug abuse patient.[facility] [place]In the event this information is protected by the Federal Confidentiality of Alcohol and Drug Abuse Patient Records regulations: The Federal rules restrict any use of the information to criminally investigate or prosecute any alcohol or drug abuse patient.[facility] [place] [facility]In the event this information is protected by the Federal Confidentiality of Alcohol and Drug Abuse Patient Records regulations: The Federal rules restrict any use of the information to criminally investigate or prosecute any alcohol or drug abuse patient.[facility] [place] the event this information is protected by the Federal Confidentiality of Alcohol and Drug Abuse Patient Records regulations: The Federal rules restrict any use of the information to criminally investigate or prosecute any alcohol or drug abuse patient.[facility] [place] the event this information is protected by the Federal Confidentiality of Alcohol and Drug Abuse Patient Records regulations: The Federal rules restrict any use of the information to criminally investigate or prosecute any alcohol or drug abuse patient.[facility] [place] the event this information is protected by the Federal Confidentiality of Alcohol and Drug Abuse Patient Records regulations: The Federal rules restrict any use of the information to criminally investigate or prosecute any alcohol or drug abuse patient.[facility] [place]In the event this information is protected by the Federal Confidentiality of Alcohol and Drug Abuse Patient Records regulations: The Federal rules restrict any use of the information to criminally investigate or prosecute any alcohol or drug abuse patient.[facility] [place]In the event this information is protected by the Federal Confidentiality of Alcohol and Drug Abuse Patient Records regulations: The Federal rules restrict any use of the information to criminally investigate or prosecute any alcohol or drug abuse patient.[facility] [place] Care Teams (unrecognized sec tion and content) Trains Dispatcher Supervisor Relationship Specialty Start Date End Date Kentrell Dhaliwal II, MD [address] [place] [address] [address] [place], [place] [id number] PCP - General Family Practice 08/18/20 Lelia Benavides, nurse auditor Client Resolution Specialist 11/25/21 01/25/22 Trains Dispatcher Supervisor Relationship Specialty Start Date End Date Kentrell Dhaliwal II, MD [address] [place] [address] [address] [place], [place] [id number] PCP - General Family Practice 08/18/20 Lelia Benavides, nurse auditor Client Resolution Specialist 11/25/21 01/25/22 Trains Dispatcher Supervisor Relationship Specialty Start Date End Date Kentrell Dhaliwal II, MD [address] [place] [address] [address] [place], [place] [id number] PCP - General Family Practice 08/18/20 Lelia Benavides, nurse auditor Client Resolution Specialist 11/25/21 01/25/22 Trains Dispatcher Supervisor Relationship Specialty Start Date End Date Kentrell Dhaliwal II, MD [address] [place] [address] [address] [place], [place] [id number] PCP - General Family Practice 08/18/20 Lelia Benavides, nurse auditor Client Resolution Specialist 11/25/21 01/25/22 Trains Dispatcher Supervisor Relationship Specialty Start Date End Date Kentrell Dhaliwal II, MD [address] [place] [address] [address] [place], [place] [id number] PCP - General Family Practice 08/18/20 Lelia Benavides, nurse auditor Client Resolution Specialist 11/25/21 01/25/22 Trains Dispatcher Supervisor Relationship Specialty Start Date End Date Kentrell Dhaliwal II, MD [address] [place] [address] [address] [place], [place] 460782 PCP - General Family Practice 08/18/20 Lelia Benavides, nurse auditor Client Resolution Specialist 11/25/21 01/25/22 Trains Dispatcher Supervisor Relationship Specialty Start Date End Date Kentrell Dhaliwal II, MD [address] [place] [address] [address] [place], [place] [id number] PCP - General Family Practice 08/18/20 Lelia Benavides, nurse auditor Client Resolution Specialist 11/25/21 01/25/22 Trains Dispatcher Supervisor Relationship Specialty Start Date End Date Kentrell Dhaliwal II, MD [address] [place] [address] [address] [place], [place] [id number] PCP - General Family Practice 08/18/20 Lelia Benavides nurse auditor Client Resolution Specialist 11/25/21 01/25/22 Trains Dispatcher Supervisor Relationship Specialty Start Date End Date Kentrell Dhaliwal II, MD [address] [place] [address] [place] [address] PCP - General Family Practice 08/18/20 Lelia Benavides, nurse auditor Client Resolution Specialist 11/25/21 01/25/22 Trains Dispatcher Supervisor Relationship Specialty Start Date End Date Kentrell Dhaliwal II, MD [address] [place] [address] [place] [address] PCP - General Family Practice 08/18/20 Lelia Benavides, nurse auditor Client Resolution Specialist 11/25/21 01/25/22 Trains Dispatcher Supervisor Relationship Specialty Start Date End Date Kentrell Dhaliwal II, MD [address] [place] [address] [address] [place], [place] [id number] PCP - General Family Practice 08/18/20 Lelia Benavides, nurse auditor Client Resolution Specialist 11/25/21 01/25/22 Trains Dispatcher Supervisor Relationship Specialty Start Date End Date Kentrell Dhaliwal II, MD [address] [place] [address] [address] [place], [place] 585342 PCP - General Family Practice 08/18/20 Lelia Benavides, nurse auditor Client Resolution Specialist 11/25/21 01/20/22 Trains Dispatcher Supervisor Relationship Specialty Start Date End Date Kentrell Dhaliwal II, MD [address] [place] [address] [address] [place], [place] [phone] PCP - General Family Practice 08/18/20 Lelia Benavides, nurse auditor Client Resolution Specialist 11/25/21 01/20/22 Trains Dispatcher Supervisor Relationship Specialty Start Date End Date Kentrell Dhaliwal II, MD [address] [place] [address] [place] [address] PCP - General Family Practice 08/18/20 Lelia Benavides RN Primary Care Client Resolution Specialist 11/25/21 01/20/22 Trains Dispatcher Supervisor Relationship Specialty Start Date End Date Kentrell Dhaliwal II, MD [address] [place] [address] [place] [address] PCP - General Family Practice 08/18/20 Lelia Benavides RN Primary Care Client Resolution Specialist 11/25/21 01/20/22 Trains Dispatcher Supervisor Relationship Specialty Start Date End Date Kentrell Dhaliwal II, MD [address] [place] [address] [place] [address] PCP - General Family Practice 08/18/20 Lelia Benavides RN Primary Care Client Resolution Specialist 11/25/21 01/20/22 Trains Dispatcher Supervisor Relationship Specialty Start Date End Date Kentrell Dhaliwal II, MD [address] [place] [address] [place] [address] PCP - General Family Practice 08/18/20 Lelia Benavides, nurse auditor Client Resolution Specialist 11/25/21 01/20/22 Trains Dispatcher Supervisor Relationship Specialty Start Date End Date Kentrell Dhaliwal II, MD [address] [place] [address] [place] [address] PCP - General Family Practice 08/18/20 Lelia Benavides, nurse auditor Client Resolution Specialist 11/25/21 01/20/22 Trains Dispatcher Supervisor Relationship Specialty Start Date End Date Kentrell Dhaliwal II, MD [address] [place] [address] [place] [address] PCP - General Family Practice 08/18/20 Trains Dispatcher Supervisor Relationship Specialty Start Date End Date Kentrell Dhaliwal II, MD [address] [place] [address] [place] [address] PCP - General Family Practice 08/18/20 Trains Dispatcher Supervisor Relationship Specialty Start Date End Date Kentrell Dhaliwal II, MD [address] [place] [address] [place] [address] PCP - General Family Practice 08/18/20 Trains Dispatcher Supervisor Relationship Specialty Start Date End Date Kentrell Dhaliwal II, MD [address] [place] [address] [place] [address] PCP - General Family Practice 08/18/20 Trains Dispatcher Supervisor Relationship Specialty Start Date End Date Kentrell Dhaliwal II, MD [address] [place] [address] [place] [address] PCP - General Family Practice 08/18/20 Trains Dispatcher Supervisor Relationship Specialty Start Date End Date Kentrell Dhaliwal II, MD [address] [place] [address] [place] [address] PCP - General Family Practice 08/18/20 Trains Dispatcher Supervisor Relationship Specialty Start Date End Date Kentrell Dhaliwal II, MD [address] [place] [address] [place] [address] PCP - General Family Practice 08/18/20 Trains Dispatcher Supervisor Relationship Specialty Start Date End Date Kentrell Dhaliwal II, MD [address] [place] [address] [place] [address] PCP - General Family Practice 08/18/20 Trains Dispatcher Supervisor Relationship Specialty Start Date End Date Kentrell Dhaliwal II, MD [address] [place] [address] [place] [address] PCP - General Family Practice 08/18/20 Trains Dispatcher Supervisor Relationship Specialty Start Date End Date Kentrell Dhaliwal II, MD [address] [place] [address] [place] [address] PCP - General Family Practice 08/18/20 Trains Dispatcher Supervisor Relationship Specialty Start Date End Date Kentrell Dhaliwal II, MD [address] [place] [address] [place] [address] PCP - General Family Practice 08/18/20 Trains Dispatcher Supervisor Relationship Specialty Start Date End Date Kentrell Dhaliwal II, MD [address] [place] [address] [place] [address] PCP - General Family Practice 08/18/20 Trains Dispatcher Supervisor Relationship Specialty Start Date End Date Kentrell Dhaliwal II, MD [address] [place] [address] [place] [address] PCP - General Family Practice 08/18/20 Trains Dispatcher Supervisor Relationship Specialty Start Date End Date Kentrell Dhaliwal II, MD [address] [place] [address] [place] [address] PCP - General Family Practice 08/18/20 Trains Dispatcher Supervisor Relationship Specialty Start Date End Date Kentrell Dhaliwal II, MD [address] [place] [address] [place] [address] PCP - General Family Practice 08/18/20 Trains Dispatcher Supervisor Relationship Specialty Start Date End Date Kentrell Dhaliwal II, MD [address] [place] [address] [place] [address] PCP - General Family Practice 08/18/20 Trains Dispatcher Supervisor Relationship Specialty Start Date End Date Kentrell Dhaliwal II, MD [address] [place] [address] [place] [address] PCP - General Family Practice 08/18/20 Trains Dispatcher Supervisor Relationship Specialty Start Date End Date Kentrell Dhaliwal II, MD [address] [place] [address] [place] [address] PCP - General Family Practice 08/18/20 Trains Dispatcher Supervisor Relationship Specialty Start Date End Date Kentrell Dhaliwal II, MD [address] [place] [address] [place] [address] PCP - General Family Practice 08/18/20 Trains Dispatcher Supervisor Relationship Specialty Start Date End Date Kentrell Dhaliwal II, MD [address] [place] [address] [place] [address] PCP - General Family Practice 08/18/20 Trains Dispatcher Supervisor Relationship Specialty Start Date End Date Kentrell Dhaliwal II, MD [address] [place] [address] [place] [address] PCP - General Family Medicine 08/18/20 Trains Dispatcher Supervisor Relationship Specialty Start Date End Date Kentrell Dhaliwal II, MD [address] [place] [address] [place] [address] PCP - General Family Medicine 08/18/20 Trains Dispatcher Supervisor Relationship Specialty Start Date End Date Kentrell Dhaliwal II, MD [address] [place] [address] [place] [address] PCP - General Family Medicine 08/18/20 Trains Dispatcher Supervisor Relationship Specialty Start Date End Date Kentrell Dhaliwal II, MD [address] [place] [address] [place] [address] PCP - General Family Medicine 08/18/20 Trains Dispatcher Supervisor Relationship Specialty Start Date End Date Kentrell Dhaliwal II, MD [address] [place] [address] [place] [address] PCP - General Family Medicine 08/18/20 Trains Dispatcher Supervisor Relationship Specialty Start Date End Date Kentrell Dhaliwal II, MD [address] [place] [address] [place] [address] PCP - General Family Medicine 08/18/20 Silvia Hicks, RN [address] [place] [address] Primary Care Client Resolution Specialist 07/18/22 08/17/22 Trains Dispatcher Supervisor Relationship Specialty Start Date End Date Kentrell Dhaliwal II, MD [address] [place] [address] [place] [address] PCP - General Family Medicine 08/18/20 Silvia Hicks, RN [address] [place] [address] Primary Care Client Resolution Specialist 07/18/22 08/17/22 Trains Dispatcher Supervisor Relationship Specialty Start Date End Date Kentrell Dhaliwal II, MD [address] [place] [address] [place] [address] PCP - General Family Medicine 08/18/20 Silvia Hicks, RN [address] [place] [address] Primary Care Client Resolution Specialist 07/18/22 08/17/22 Trains Dispatcher Supervisor Relationship Specialty Start Date End Date Kentrell Dhalwial II, MD [address] [place] [address] [place] [address] PCP - General Family Medicine 08/18/20 Silvia Hicks, DAVID [address] [place] [address] Primary Care Client Resolution Specialist 07/18/22 08/17/22 Trains Dispatcher Supervisor Relationship Specialty Start Date End Date Kentrell Dhaliwal II, MD [address] [place] [address] [place] [address] PCP - General Family Medicine 08/18/20 Silvia Hicks, DAVID [address] [place] [address] Primary Care Client Resolution Specialist 07/18/22 08/17/22 Trains Dispatcher Supervisor Relationship Specialty Start Date End Date Kentrell Dhaliwal II, MD [address] [place] [address] [place] [address] PCP - General Family Medicine 08/18/20 Silvia Hicks, RN [address] [place], [place] [phone] Primary Care Client Resolution Specialist 07/18/22 08/17/22 Trains Dispatcher Supervisor Relationship Specialty Start Date End Date Kentrell Dhaliwal II, MD [address] [place] [address] [address] [place], [place] [phone] PCP - General Family Medicine 08/18/20 Trains Dispatcher Supervisor Relationship Specialty Start Date End Date Kentrell Dhaliwal II, MD [address] [place] [address] [address] [place], [place] 481102 PCP - General Family Medicine 08/18/20 Team Status: Active Member Role Status Dates No Primary Care Physician Primary Care Provider Active Team Status: Inactive Member Role Status Dates Dr. Mika Anderson MD Emergency Provider Active No Primary Care Physician Primary Care Provider Active Trains Dispatcher Supervisor Relationship Specialty Start Date End Date Kentrell Dhaliwal II, MD [address] [place] [address] [address] [place], [place] [id number] PCP - General Family Medicine 08/18/20 Trains Dispatcher Supervisor Relationship Specialty Start Date End Date Kentrell Dhaliwal II, MD [address] [place] [address] [address] [place], [place] 107642 PCP - General Family Medicine 08/18/20 Team Status: Active Member Role Status Dates Dr. Kentrell Dhaliwal MD Primary Care Provider Active Team Status: Active Member Role Status Dates Dr. Jose Stanton MD Emergency Provider Active Dr. Kentrell Dhaliwal MD Primary Care Provider Active Dr. Jessica Thomas MD Admit Provider, Attending Provider, Other Provider Active Team Status: Inactive Member Role Status Dates Dr. Mika Anderson MD Attending Provider, Emergency Provi lois Active No Primary Care Physician Primary Care Provider Active Team Status: Active Member Role Status Dates Dr. Jose Stanton MD Emergency Provider Active Dr. Kentrell Dhaliwal MD Primary Care Provider Active Dr. Jessica Thomas MD Admit Provider, Other Provider Active Dr. Aly Fragoso MD Attending Provider Active Team Status: Active Member Role Status Dates Dr. Jose Stanton MD Emergency Provider Active Dr. Kentrell Dhaliwal MD Primary Care Provider Active Dr. Jessica Thomas MD Admit Provider, Other Provider Active Dr. Aly Fragoso MD Other Provider Active Dr. Paulo Umanzor MD Attending Provider, Other Provi lois Active Team Status: Active Member Role Status Dates Dr. Jose Stanton MD Emergency Provider Active Dr. Kentrell Dhaliwal MD Primary Care Provider Active Dr. Jessica Thomas MD Admit Provider, Other Provider Active Dr. Paulo Umanzor MD Other Provider Active Dr. Ivon Oliver MD Other Provider Active Dr. Aly rFagoso MD Other Provider Active Dr. Marvin Edwards MD Attending Provider Active Team Status: Active Member Role Status Dates Dr. Jose Stanton MD Emergency Provider Active Dr. Kentrell Dhaliwal MD Primary Care Provider Active Dr. Jessica Thomas MD Admit Provider, Other Provider Active Dr. Paulo Umanzor MD Other Provider Active Dr. Ivon Oliver MD Attending Provider, Other Provid er Active Dr. Aly Fragoso MD Other Provider Active Team Status: Inactive Member Role Status Dates Dr. Jose Stanton MD Emergency Provider Active Dr. Kentrell Dhaliwal MD Primary Care Provider Active Dr. Jessica Thomas MD Admit Provider, Other Provider Active Dr. Paulo Umanzor MD Other Provider Active Dr. Ivon Oliver MD Attending Provider Active Dr. Aly Fragoso MD Other Provider Active Trains Dispatcher Supervisor Relationship Specialty Start Date End Date Kentrell Dhaliwal II, MD [address] [place] [address] [place] [address] PCP - General Family Medicine 08/18/20 Team Status: Active Member Role Status Dates Dr. Jose Stanton MD Emergency Provider Active Dr. Kentrell Dhaliwal MD Primary Care Provider Active Dr. Jessica Thomas MD Admit Provider, Other Provider Active Dr. Aly Fragoso MD Other Provider Active Dr. Paulo Umanzor MD Attending Provider, Other Provi lois Active Dr. Ivon Oliver MD Referring Provider Active Team Status: Inactive Member Role Status Dates Dr. Kentrell Dhaliwal MD Primary Care Provider Active Dr. Matt Dominguez DO Emergency Provider Active Trains Dispatcher Supervisor Relationship Specialty Start Date End Date Kentrell Dhaliwal II, MD [address] [place] [address] [place], [place] [id number] PCP - [facility] 08/18/20 Trains Dispatcher Supervisor Relationship Specialty Start Date End Date Kentrell Dhaliwal II, MD [address] [place] [address] [address] [place], [place] [id number] PCP - [facility] 08/18/20 Trains Dispatcher Supervisor Relationship Specialty Start Date End Date Kentrell Dhaliwal II, MD [address] [place] [address] [address] [place], [place] [id number] PCP - [facility] 08/18/20 Trains Dispatcher Supervisor Relationship Specialty Start Date End Date Kentrell Dhaliwal II, MD [address] [place] [address] [address] [place], [place] [id number] PCP - [facility] 08/18/20 Trains Dispatcher Supervisor Relationship Specialty Start Date End Date Kentrell Dhaliwal II, MD [address] [place] [address] [address] [place], [place] [id number] PCP - [facility] 08/18/20 Trains Dispatcher Supervisor Relationship Specialty Start Date End Date Kentrell Dhaliwal II, MD [address] [place] [address] [address] [place], [place] [id number] PCP - [facility] 08/18/20 Trains Dispatcher Supervisor Relationship Specialty Start Date End Date Kentrell Dhaliwal II, MD [address] [place] [address] [address] [place], [place] [id number] PCP - [facility] 08/18/20 Trains Dispatcher Supervisor Relationship Specialty Start Date End Date Radha Doyle APRN.ORAL AND MAXILLOFACIAL SURGEON [address] [place] [address] [place], [place] [id number] PCP - General Family Medicine 06/16/20 06/21/20 Radha Doyle APRN.ORAL AND MAXILLOFACIAL SURGEON [address] [place] [address] [place] [address] PCP - General Family Medicine 06/22/20 07/15/20 Kentrell Dhaliwal II, MD [address] [place] [address] [place] [address] PCP - General Family Medicine 07/16/20 08/03/20 Radha Doyle APRN.ORAL AND MAXILLOFACIAL SURGEON [address] [place] [address] [place] [address] PCP - General [facility] 08/04/20 08/17/20 Kentrell Dhaliwal II, MD [address] [place] [address] [place] [address] PCP - General [facility] 08/18/20 Radha Doyle APRN.ORAL AND MAXILLOFACIAL SURGEON [address] [place] [address] [place] [address] Family Medicine 06/22/20 07/15/20 Lelia Benavides, nurse auditor Client Resolution Specialist 11/25/21 01/20/22 Silvia Hicks, DAVID [address] [place], [place] [address] Primary Care Client Resolution Specialist 07/18/22 08/17/22 Trains Dispatcher Supervisor Relationship Specialty Start Date End Date Kentrell Dhaliwal II, MD [address] [place] [address] [place] [address] PCP - General [facility] 08/18/20 Trains Dispatcher Supervisor Relationship Specialty Start Date End Date Kentrell Dhaliwal II, MD [address] [place] [address] [place] [address] PCP - General Family Medicine 08/18/20 Trains Dispatcher Supervisor Relationship Specialty Start Date End Date Kentrell Dhaliwal II, MD [address] [place] [address] [place] [address] PCP - General Family Medicine 08/18/20 Trains Dispatcher Supervisor Relationship Specialty Start Date End Date Kentrell Dhaliwal II, MD [address] [place] [address] [place] [address] PCP - General Family Medicine 08/18/20 Trains Dispatcher Supervisor Relationship Specialty Start Date End Date Kentrell Dhaliwal II, MD [address] [place] [address] [place] [address] PCP - General Family Medicine 08/18/20 Trains Dispatcher Supervisor Relationship Specialty Start Date End Date Kentrell Dhaliwal II, MD [address] [place] [address] [place] [address] PCP - General Family Medicine 08/18/20 Trains Dispatcher Supervisor Relationship Specialty Start Date End Date Kentrell Dhaliwal II, MD [address] [place] [address] [address] [place], [place] [id number] PCP - General Family Medicine 08/18/20 Team Status: Active Member Role Status Dates Dr. Kentrell Dhaliwal MD Primary Care Provider Active Dr. Federico Monique DO Emergency Provider Active Dr. Jessica Thomas MD Attending Provider Active Team Status: Active Member Role Status Dates Dr. Kentrell Dhaliwal MD Primary Care Provider Active Dr. Federico Monique DO Emergency Provider Active Dr. Jessica Thomas MD Admit Provider, Attending Prov ider Active Team Status: Active Member Role Status Dates Dr. Kentrell Dhaliwal MD Primary Care Provider Active Dr. Federico Monique DO Emergency Provider Active Dr. Jessica Thomas MD Admit Provider, Other Provider Active Dr. Paulo Umanzor MD Attending Provider, Other Provi lois Active Dr. Aly Fragoso MD Other Provider Active Team Status: Active Member Role Status Dates Dr. Kentrell Dhaliwal MD Primary Care Provider Active Dr. Federico Monique DO Emergency Provider Active Dr. Jessica Thomas MD Admit Provider, Other Provider Active Dr. Paulo Umanzor MD Other Provider Active Dr. Aly Fragoso MD Other Provider Active Dr. Ana Laura Lennon MD Attending Provider Active Team Status: Active Member Role Status Dates Dr. Kentrell Dhaliwal MD Primary Care Provider Active Dr. Federico Monique DO Emergency Provider Active Dr. Jessica Thomas MD Admit Provider, Other Provider Active Dr. Paulo Umanzor MD Other Provider Active Dr. Aly Fragoso MD Attending Provider, Other Provider Active Team Status: Active Member Role Status Dates Dr. Kentrell Dhaliwal MD Primary Care Provider Active Dr. Federico Monique DO Emergency Provider Active Dr. Jessica Thomas MD Admit Provider, Other Provider Active Dr. Paulo Umanzor MD Other Provider Active Dr. Aly Fragoso MD Other Provider Active Stefania RIVERA PA-C Attending Provider Active Team Status: Inactive Member Role Status Dates Dr. Kentrell Dhaliwal MD Primary Care Provider Active Dr. Federico Monique DO Emergency Provider Active Dr. Jessica Thomas MD Admit Provider, Other Provider Active Dr. Paulo Umanzor MD Other Provider Active Dr. Aly Fragoso MD Attending Provider Active Team Status: Inactive Member Role Status Dates Dr. Kentrell Dhaliwal MD Primary Care Provider Active Dr. Mike Fraser DO Emergency Provider Active Trains Dispatcher Supervisor Relationship Specialty Start Date End Date Kentrell Dhaliwal II, MD [address] [place] [address] [place] [address] PCP - General Family Medicine 08/18/20 Trains Dispatcher Supervisor Relationship Specialty Start Date End Date Kentrell Dhaliwal II, MD [address] [place] [address] [place] [address] PCP - General Family Medicine 08/18/20 Trains Dispatcher Supervisor Relationship Specialty Start Date End Date Kentrell Dhaliwal II, MD [address] [place] [address] [place] [address] PCP - General Family Medicine 08/18/20 Trains Dispatcher Supervisor Relationship Specialty Start Date End Date Kentrell Dhaliwal II, MD [address] [place] [address] [address] [place], [place] [id number] PCP - General Family Medicine 08/18/20 Trains Dispatcher Supervisor Relationship Specialty Start Date End Date Kentrell Dhaliwal II, MD [address] [place] [address] [place] [address] PCP - General Family Medicine 08/18/20 Silvia Hicks RN [address] [place] [address] Primary Care Client Resolution Specialist 07/18/22 08/17/22 Trains Dispatcher Supervisor Relationship Specialty Start Date End Date Kentrell Dhaliwal II, MD [address] [place] [address] [place] [address] PCP - General Family Medicine 08/18/20 Trains Dispatcher Supervisor Relationship Specialty Start Date End Date Kentrell Dhaliwal II, MD [address] [place] [address] [place] [address] PCP - General Family Medicine 08/18/20 Trains Dispatcher Supervisor Relationship Specialty Start Date End Date Kentrell Dhaliwal II, MD [address] [place] [address] [place] [address] PCP - General Family Medicine 08/18/20 Trains Dispatcher Supervisor Relationship Specialty Start Date End Date Kentrell Dhaliwal II, MD [address] [place] [address] [place] [address] PCP - General Family Medicine 08/18/20 Jessie Mccloud RN [address] [place] [address] [place], [place] 184782 Primary Care Client Resolution Specialist 09/18/24 Trains Dispatcher Supervisor Relationship Specialty Start Date End Date Kentrell Dhaliwal II, MD [address] [place] [address] [place] [address] PCP - General Family Medicine 08/18/20 Trains Dispatcher Supervisor Relationship Specialty Start Date End Date Kentrell Dhaliwal II, MD [address] [place] [address] [place] [address] PCP - General Family Medicine 08/18/20 Jessie Mccloud RN [address] [address] Primary Care Client Resolution Specialist 09/18/24 Trains Dispatcher Supervisor Relationship Specialty Start Date End Date Kentrell Dhaliwal II, MD [address] [place] [address] [place] [address] PCP - General Family Medicine 08/18/20 Jessie Mccloud RN [address] [address] Primary Care Client Resolution Specialist 09/18/24 Trains Dispatcher Supervisor Relationship Specialty Start Date End Date Kentrell Dhaliwal II, MD [address] [place] [address] [place] [address] PCP - General Family Medicine 08/18/20 Jessie Mccloud RN [address] [address] Primary Care Client Resolution Specialist 09/18/24 Trains Dispatcher Supervisor Relationship Specialty Start Date End Date Kentrell Dhaliwal II, MD [address] [place] [address] [place] [address] PCP - General Family Medicine 08/18/20 Jessie Mccloud, DAVID [address] [place] [address] Primary Care Client Resolution Specialist 09/18/24 10/17/24 Trains Dispatcher Supervisor Relationship Specialty Start Date End Date Kentrell Dhaliwal II, MD PCP - General Family Medicine 08/18/20 Trains Dispatcher Supervisor Relationship Specialty Start Date End Date Kentrell Dhaliwal II, MD PCP - General Family Medicine 08/18/20 Trains Dispatcher Supervisor Relationship Specialty Start Date End Date Kentrell Dhaliwal II, MD PCP - General Family Medicine 08/18/20 Trains Dispatcher Supervisor Relationship Specialty Start Date End Date Kentrell Dhaliwal II, MD PCP - General Family Medicine 08/18/20 Trains Dispatcher Supervisor Relationship Specialty Start Date End Date Kentrell Dhaliwal II, MD PCP - General Family Medicine 08/18/20 Trains Dispatcher Supervisor Relationship Specialty Start Date End Date Kentrell Dhaliwal II, MD PCP - General Family Medicine 08/18/20 Trains Dispatcher Supervisor Relationship Specialty Start Date End Date Kentrell Dhaliwal II, MD PCP - General Family Medicine 08/18/20 Trains Dispatcher Supervisor Relationship Specialty Start Date End Date Kentrell Dhaliwal II, MD PCP - General Family Medicine 08/18/20 Trains Dispatcher Supervisor Relationship Specialty Start Date End Date Kentrell Dhaliwal II, MD PCP - General Family Medicine 08/18/20 Trains Dispatcher Supervisor Relationship Specialty Start Date End Date Kentrell Dhaliwal II, MD PCP - General Family Medicine 08/18/20 Trains Dispatcher Supervisor Relationship Specialty Start Date End Date Kentrell Dhaliwal II, MD PCP - General Family Medicine 08/18/20 Trains Dispatcher Supervisor Relationship Specialty Start Date End Date Kentrell Dhaliwal II, MD PCP - General Family Medicine 08/18/20 Trains Dispatcher Supervisor Relationship Specialty Start Date End Date Kentrell Dhaliwal II, MD PCP - General Family Medicine 08/18/20 Trains Dispatcher Supervisor Relationship Specialty Start Date End Date Kentrell Dhaliwal II, MD PCP - General Family Medicine 08/18/20 Reason for Visit (unrecogniz ed section and content) Reason Comments Orders CT abd/pelvis auth Reason Comments New Patient CT results Reason Onset Date Comments Transition Of Care 12/15/2021 SNF Update Reason Comments Refill Request Reason Onset Date Comments Transition Of Care 12/21/2021 Monika Dent Dis charged 12/20/2021. TCM Initial encounter Reason Comments Scheduling UPPER GI SERIES Reason Comments Follow Up ABD pain Reason Comments Insurance Authorization Reason Comments Results Reason Comments Orders Reason Comments Results Reason Comments Patient Update Reason Comments Follow Up Recheck on ABD Reason Comments Referral Request Reason Comments Patient Question Reason Onset Date Comments Refill Request 01/24/2022 Reason Onset Date Comments Transition Of Care 02/02/2022 [facility] 02[facility]2022. TCM Initial encounter Reason Comments Hospital Follow Up Bowel issues Reason Comments F/U 3 months [facility], [facility], [facility], labs Reason Onset Date Comments ER F/U 04/24/2022 Reason Comments ER F/U Reason Comments Refill Request Reason Comments Patient Update Medication Request Reason Comments Medication Problem Reason Onset Date Comments Ambulatory Social Work 05/09/2022 Reason Onset Date Comments Refill Request 05/18/2022 Reason Comments Transition Of Care [facility] Admitted on 04/18 for Syncope R/T Polypharmacy, nausea and vomiting Urinary Problem Patient thinks she s till has UTI Reason Onset Date Comments Refill Request 06/06/2022 Reason Comments Patient Update Medication Problem Reason Onset Date Comments Transition Of Care 07/18/2022 GLENNY D/C [facility] 07/17/22 UTI, Partial bowel obstruction Reason Comments New Patient Abdominal Pain Reason Onset Date Comments Refill Request 11/13/2022 Reason Comments F/U 3 Month Reason Onset Date Comments Refill Request 01/17/2023 Reason Onset Date Comments Refill Request 01/29/2023 Reason Onset Date Comments Transition Of Care 03/22/2023 Reason Onset Date Comments Refill Request 04/10/2023 Reason Onset Date Comments Refill Request 04/11/2023 Reason Comments Transition Of Care [facility] admit betsy on 04/01/2023 for SBO UTI Patient states she i s starting to get sores on the labia. Patient states she noticed the sores yesterday 04/17/2023 Reason Comments Patient Update Refill Request Reason Onset Date Comments Refill Request 05/04/2023 Reason Onset Date Comments Refill Request 05/22/2023 Reason Onset Date Comments Refill Request 06/18/2023 Reason Comments F/U 3 Month Short Of Breath Reason Comments Patient Question Refill Request Reason Onset Date Comments Refill Request 10/25/2023 Reason Onset Date Comments Refill Request 11/01/2023 Reason Comments Patient Update Patient Question Reason Comments patient requesting call back Patient Question Reason Comments Follow Up 1 month Medication Question Patient is wondering if she should take Iron since the iron infusion at the hospital helped? Patient states that phenergan helps better than Zofran. Patient wondering if she can switch. Reason Onset Date Comments Refill Request 01/15/2024 Reason Onset Date Comments Refill Request 02/01/2024 Reason Onset Date Comments Refill Request 03/03/2024 Reason Onset Date Comments Refill Request 03/17/2024 Reason Onset Date Comments Refill Request 04/01/2024 Reason Onset Date Comments Refill Request 04/14/2024 Reason Onset Date Comments Refill Request 05/01/2024 Reason Comments requesting call back Reason Onset Date Comments Refill Request 05/30/2024 Reason Comments Radio Gen RMP Radiology Service Pr ogress NotePATIENT NAME: Kaitlyn EscobarMRN: [id number] OF SERVICE: July 21, 2022TIME: 3:38 PMPATIENT IDENTITY VERIFICATION COMPLETED USING TWO (2) IDENTIFIERS: Name and Date of confirmed by patient verbally.FALL SCREENING: Has the patient had 2 falls in the last year or 1 fall with injury or currently using an Ambulatory Assistive Device (Walker, Cane, Wheelchair, Crutches, etc.)? NoPATIENT GENDER DATA: Female. status: : No Br Specialty Diagnoses / Procedures Referred By Contac t Referred To Contact XR IMAGING Diagnoses LLQ abdominal pain Partial small bowel obstruction (HCC) Procedures XR ABDOMEN 2V ROUTINE SUPINE W UPRIGHT/DECUB/CTL RADIOLOGIC EXAM [place]BDOMEN [address] [place] [address] [place] [address] [place] [id number] Referral ID Status Reason Start Date Expiration Date V isits Requested Visits Authorized [id number] Closed Auto-Generate d Referral 07/21/2022 08/20/2023 1 1 Reason Comments Follow Up 3 month follow up. P t states that she is having breathing issues. Using all of her inhalers. Pt stated that the time is coming that she will need [facility]. Pt needing refills. Pt would like to discuss antidepressant. Reason Onset Date Comments Refill Request 06/30/2024 Reason Comments Medication Question Reason Comments Ear Problem Pt states that a lit tle over a week ago she woke up with severe ear pain, has taken the amoxicillin as Rx'ed, still having some bloody drainage. Pt has been using OTC Similasan Earache drops. Reason Onset Date Comments Refill Request 07/29/2024 Reason Comments Ear Pain Reason Onset Date Comments Transition Of Care 09/18/2024 Reason Comments Transition Of Care Pt states she has be en trying her best since getting out the hospital, brings in paperwork from the ER. Pt is very winded while talking. Pt states that she has been taking Phenergan stops her nausea but gives her heartburn, feels the Zofran does not work as well. Medication Question Pt asked if she shou ld be using the albuterol inhaler while on Lasix Reason Onset Date Comments Refill Request 10/07/2024 Reason Onset Date Comments Transition Of Care 10/17/2024 Reason Onset Date Comments Refill Request 10/28/2024 Reason Onset Date Comments Refill Request 11/10/2024 Reason Onset Date Comments Refill Request 11/24/2024 Reason Comments Appointment Reason Onset Date Comments Refill Request 12/09/2024 Reason Onset Date Comments Refill Request 12/08/2024 Reason Onset Date Comments Refill Request 12/25/2024 Reason Onset Date Comments Refill Request 01/01/2025 Reason Comments Medication Request Reason Comments palpiptations Reason Onset Date Comments Refill Request 03/03/2025 Reason Onset Date Comments Population Health Navigation Outreach 03/13/2025 [facility] Reason Comments Palpitations Patient stated that her first spell was back in January. Patient stated she starts to sweat and gets faint. Patient stated she was on vacation and it occurred again but worse. Patient stated that the third time it occurred she was doing laundry. Weakness Patient stated in th e last 6 weeks she as gotten weaker and having trouble keeping up with doing her normal routine Fatigue Shortness of Breath Refill Request Xanax Both inhalers Reason Onset Date Comments Refill Request 03/31/2025 INFORMATION SOURCE (unrecogn ized section and content) DATE CREATED AUTHOR 02/22/2022 [facility]an [place] DATE CREATED AUTHOR AUTHOR'S ORGANIZ ATION 03/07/2022 [facility] DATE CREATED AUTHOR AUTHOR'S ORGANIZ ATION 03/17/2023 [facility] DATE CREATED AUTHOR AUTHOR'S ORGANIZ ATION 09/28/2024 [facility] DATE CREATED AUTHOR AUTHOR'S ORGANIZ ATION 04/03/2025 [facility] DATE CREATED AUTHOR AUTHOR'S ORGANIZ ATION 04/04/2025 [facility] Goals (unrecognized section and content) Goals may be documented in a n alternate sectionGoals may be documented in an alternate sectionGoals may be documented in an alternate section FOR RECORDS PERTAINING TO PATIENTS WHO ARE OR HAVE BEEN ENROLLED IN A CHEMICAL DEPENDENCY/SUBSTANCEABUSE PROGRAM, SOME INFORMATION MAY BE OMITTED. This clinical summary was aggregated from multiple sources. Caution should be exercised in using it in the provision of clinical care. This summary normalizes information from multiple sources, and as a consequence, information in this document may materially change the coding, format and clinical context of patient data. In addition, data may be omitted in some cases. CLINICAL DECISIONS SHOULD BE BASED ON THE PRIMARY CLINICAL RECORDS. [facility]. provides no warranty or guarantee of the accuracy or completeness of information in this document.
[2025-04-12 18:12] LABS: AST(SGOT) 37 U/L (<=31); Alanine Aminotransfer ALT/SGPT 23 U/L (<=34); Albumin, Serum 4.1 g/dL (3.4-4.8); Alkaline Phosphatase 78 U/L (35-104); Anion Gap 13 (5-15); BUN 15 mg/dL (4-19); BUN/Creat Ratio 11.2 RATIO (10-20); Calcium,Total 9.4 mg/dL (7.6-11.0); Carbon Dioxide 20.7 mmol/L (21.0-32.0); Chloride 105 mmol/L (98-108); Estimated Creatinine Clearance 34.34 ml/min (50-250); Globulin 2.8 g/dL (2.2-4.2); Glucose 89 mg/dL (70-99); Lipase 31 U/L (13-75); Potassium 4.1 mmol/L (3.3-5.1)
--- NOTE | 2025-04-12 19:50 | HP.PCM.HOS_ITS ---
[facility] - General General Date of Service: 04/12/25 Chief Complaint: Abdominal pain HPI Narrative KAITLYN BAIRD, is a 74 F who presents with abdominal pain that began . This is a 74-year-old female that has had a bowel resections in the past presents with a 1 week history of abdominal pain. The patient stated that this past Sunday she had eaten a hamburger, and when she is been told to avoid, and was having abdominal pain. Typically these will resolve spontaneously within a few days but this did not. Patient is having umbilical abdominal pain and has had intermittent abdominal distention. Decreased flatus as well as decreased bowel movements. But has not gotten better so she presented to the emergency room for evaluation. She had a CAT scan that showed mild segmental dilation small bowel. No significant obstruction proximally. Patient received hydromorphone and fentanyl and still is having abdominal pain but is feeling better. Given the severity of her symptoms, the hospitalist service was contacted for admission. [facility] Medical History Irritable bowel Scarlet fever Depression Hyperthyroidism DVT (deep venous thrombosis) CKD (chronic kidney disease), stage III Chronic anemia History of venous thromboembolism History of small bowel obstruction GERD (gastroesophageal reflux disease) HLD (hyperlipidemia) Anxiety and depression Hypothyroidism Home Medications ?Medication ?Instructions ?Recorded ?Last Taken ?Type alprazolam 1 mg tablet (Xanax) 1 mg PO BID anxiety Unknown History bupropion HCl 150 mg 24 hr tablet, 150 mg PO BID [facility] 12/11/22 Unknown History extended release esomeprazole magnesium 20 mg 20 mg PO DAILY reflux Unknown History capsule,delayed release ezetimibe 10 mg tablet 10 mg PO DAILY cholesterol 0 12/11/22 Unknown History levothyroxine 50 mcg tablet 50 mcg PO DAILY thyroid Unknown History zolpidem 10 mg tablet (Ambien) 10 mg PO QHS sleep 11/16 04/08 Unknown History docusate sodium 100 mg capsule 100 mg PO BID stool sof tner 03/31/23 Unknown History budesonide 160 mcg-glycopyr 9 2 inh inhalation BID natty athing 12/06/23 Unknown History mcg-formot 4.8 mcg/actuation HFA inhaler (Breztri Aerosphere) buspirone 15 mg tablet 7.5 mg PO BID mental health 12/06/23 Unknown History polyethylene glycol 3350 17 17 g PO BID bowels 4 Unknown History gram/dose oral powder (Miralax) ropinirole 0.5 mg tablet 0.5 mg PO BID restless legs 12/06/23 Unknown History warfarin 5 mg tablet 5 mg PO DAILY blood thinner 12/06/23 Unknown History ondansetron HCl 4 mg tablet 4 mg PO Q6H PRN Nausea #10 tabs 12/13/23 Unknown Rx furosemide 20 mg tablet 20 mg PO DAILY 09/14/24 Unkn own History tramadol 50 mg tablet 50 mg PO Q6H PRN PRN pain Unknown History Allergy/AdvReac Type Severity Reaction Status Date / Time cefdinir (From Omnicef) Allergy Hives Verified 09/13/24 20:52 codeine Allergy NEEDS Verified 09/13/24 20:52 FOLLOW-UP latex Allergy Anaphylaxis Verified 09/13/24 20:52 prochlorperazine (From Allergy NEEDS Verified 09/13/24 20:52 Compazine) FOLLOW-UP shellfish derived Allergy Anaphylaxis Verified 09/13/24 20:52 levofloxacin (From Levaquin) AdvReac Vomiting Verified 09/13/24 20:52 [id number]-[id number] Reductase AdvReac NEEDS Verified 09/13/24 20:52 Inhibitor FOLLOW-UP Family History Mother Heart disease COPD (chronic obstructive pulmonary disease) Father Heart disease Hypertension CAD (coronary artery disease) Myocardial infarction Surgical History History of total abdominal hysterectomy History of colon surgery History of appendectomy History of cholecystectomy Social History household members: none Smoking Status: Never smoker alcohol intake: never substance use type: does not use ROS ROS Narrative Did have a fall a week ago because she felt too weak. Has not fallen since. Chills. No nausea or vomiting. All review of systems were negative except as mentioned above in the history of present illness and the other review of systems. Vital Signs Vital Signs Vital Signs: 04/12/25 17:09 04/12/25 17:14 04/12/25 18:14 Temperature 36.9 C 36.9 C 36.7 C Temperature Source Oral Oral Oral Pulse Rate 70 70 52 L Respiratory Rate 18 13 18 Blood Pressure 169/101 H 101/87 H 134/62 H Blood Pressure Mean 123 91 86 Pulse Ox 98 100 100 Oxygen Delivery Method Room Air Room Air Room Air 04/12/25 19:00 Temperature 36.9 C Temperature Source Oral Pulse Rate 63 Respiratory Rate 14 Blood Pressure 164/40 H Blood Pressure Mean 81 Pulse Ox 94 Oxygen Delivery Method Room Air Weight Weight: 69.4 kg Body Mass Index (BMI) 28.9 Physical Exam Const alert and no apparent distress HEENT normocephalic, head/scalp atraumatic, hearing grossly normal bilaterally and moist oral mucous membranes Resp normal respiratory effort, no retractions, no use of accessory muscles and clear to auscultation bilaterally Cardio regular rate, regular rhythm, S1 normal heart sound and S2 normal heart sound GI GI Narrative: Nondistended. Umbilical tenderness. Hypoactive bowel sounds. Extremity Extremity Narrative: Trace lower extremity edema Skin Skin Narrative: No rashes or lesions Neuro Sensorium / Orientation: awake and alert Psych Mood & Affect: anxious Results Lab / Micro Data Attestation: I reviewed the patient's lab results. 04/12/25 17:20 04/12/25 17:20 Labs: Laboratory Results - last 24 hr 04/12/25 17:20: WBC 8.7, RBC 3.79 L, Hgb 11.4 L, Hct 33.5 L, MCV 88.4, MCH 30.1, MCHC 34.0, RDW Std Deviation 45.3 H, RDW Coeff of [place] 14.0, Plt Count 287, MPV 9.7, Immature Gran % (Auto) 0.600, Neut % (Auto) 57.6, Lymph % (Auto) 33.1, [place] % (Auto) 7.2, Eos % (Auto) 0.9, Baso % (Auto) 0.6, Absolute Neuts (auto) 5.0, Absolute Lymphs (auto) 2.88, Nucleated RBC % 0, Sodium 139, Potassium 4.1, Chloride 105, Carbon Dioxide 20.7 L, Anion Gap 13, BUN 15, Creatinine 1.30 H, E stim Creat Clear Calc 34.34 L, Est GFR (MDRD) Non-Af 43 L, BUN/Creatinine Ratio 11.2, Glucose 89, Calcium 9.4, Total Bilirubin 0.76, AST 37 H, ALT 23, Alkaline Phosphatase 78, Total Protein 6.9, Albumin 4.1, Globulin 2.8, Albumin/Globulin Ratio 1.4, Lipase 31 Imaging Radiology Impression Abdomen/Pelvis CT 04/12/25 17:18 IMPRESSION: Similar appearance of small bowel centrally when compared to the prior study with mild segmental dilatation. No significant obstruction proximally. [facility] Assessment & Plan Assessment/Plan (1) Abdominal pain: QUALIFIERS: Abdominal location: generalized Qualified Code(s): R 10.84 - Generalized abdominal pain PLAN: Concern for ileus versus small bowel obstruction. Patient not having issues regards to nausea vomiting so I think we can avoid NG tube at this time. Supportive management. Given concern for ileus will add scheduled metoclopramide to see if that would help. Pain control as well. Clear diet. Will give her additional IV fluids patient is not eating or drinking much since this has initiated. PLAN: Plan Weakness: Patient fell a week and a half ago. PT OT evaluate and treat. Chronic medical conditions * History of DVT: Continue on warfarin. Check INR. If INR subtherapeutic, initiate enoxaparin weight-based. * Hypothyroidism: Continue with levothyroxine VTE prophylaxis: Anticoagulated. Disposition: To be determined. Patient was abdominal pain, decreased appetite and oral intake. I do not anticipate a rapid recovery given that her symptoms have been going on for 7 days thus far. Charges/Coding Visit Charges Inpatient E&M: 42031 Init Hosp L2
--- OUTSIDE RECORDS SUMMARY | 2025-04-12 20:47 | XMS RPT_ITS | CCD ---
Author Organization [facility] Care Team Providers Care Railroad Car Inspector Name Role Phone Sergio GOLDMAN MD, Kentrell [place] Primary Care Provider Fareed HERNANDEZ, Maximo Unavailable Unavailable Sergio GOLDMAN MD, Kentrell [place] Primary Care Provider Sergio GOLDMAN MD, Kentrell [place] Primary Care Provider Sergio GOLDMAN MD, Kentrell [place] Primary Care Provider Silvia Hicks RN Unavailable Sergio GOLDMAN MD, Kentrell [place] Primary Care Provider Dr. Jose Stanton Emergency Provider Dr. Kentrell Dhaliwal Primary Care Provider Dr. Jessica Thomas Admit Provider Dr. Jessica Thomas Attending Provider Dr. Jessica hTomas Other Provider ABEL JOSEPH Consulting Unavailable HALINA MITCHELL Consulting Unavailable LEO EMERSON M.D. Consulting UnavailMARILYN Red Consulting Unavailable SHAYLA CHAIDEZ M.D. Admitting Unavailable JD WAITE M.D. Attending Unavailable KAILA FUNEZ Consulting Unavailable ADRIEN BROWN Admitting Unavailable ANUJA WALKER Attending Unavailable STUART BARBOSA Consulting Unavailable LEO EMERSON M.D. Attending UnavailKENTRELL Hatch II Attending Unavailable KENTRELL DHALIWAL II Attending Unavailable Dr. Aly Fragoso Other Provider Dr. Paulo Umanzor Attending Provider Dr. Paulo Umanzor Other Provider Dr. Ivon Oliver Other Provider Dr. Marvin Edwards Attending Provider Dr. Ivon Oliver Attending Provider Dr. Ivon Oliver Referring Provider Vivek DIRECTOR DIGITAL CATALOGUE.PAPER REWINDER OPERATOR, Radha Primary Care Provider Vivek DIRECTOR DIGITAL CATALOGUE.PAPER REWINDER OPERATOR, Radha Primary Care Provider Vivek DIRECTOR DIGITAL CATALOGUE.PAPER REWINDER OPERATOR, Radha Unavailable Sergio GOLDMAN MD, Kentrell [place] Primary Care Provider Vivek DIRECTOR DIGITAL CATALOGUE.PAPER REWINDER OPERATOR, Radha Primary Care Provider Fareed HERNANDEZ, Maximo Unavailable Unavailable Fabiola HERNANDEZ, Silvia Unavailable Dr. Kentrell Dhaliwal Primary Care Provider Dr. Federico Monique Emergency Provider Dr. Jessica Thomas Attending Provider Dr. Jessica Thomas Admit Provider Dr. Jessica Thomas Other Provider Dr. Paulo Umanzor Attending Provider Dr. Paulo Umanzor Other Provider Dr. Aly Fragoso Other Provider Dr. Ana Laura Lennon Attending Provider Dr. Aly Fragoso Attending Provider Felicia RIVERA, PA-C Rogers Attending Provider Sergio GOLDMAN MD, Kentrell [place] Primary Care Provider Rogers HERNANDEZ, Gertrude Unavailable Rogers HERNANDEZ, Gertrude Unavailable Sergio GOLDMAN MD, Kentrell [place] Primary Care Provider KENTRELL DHALIWAL II Referring Unavailluis eduardo DHALIWAL II, KENTRELL [place] Primary Care Unavailabl yelitza DHALIWAL II, KENTRELL [place] Referring Unavailabl e SERGIO GOLDMAN, KENTRELL [place] Primary Care Unavailabl e SERGIO GOLDMAN, KENTRELL [place] Referring Unavailabl e SERGIO II, KENTRELL [place] Primary Care Unavailabl e DHALIWAL II, KENTRELL [place] Attending Unavailabl e SELF Referring Unavailable DHALIWAL II, KENTRELL [place] Primary Care Unavailabl e DHALIWAL II, KENTRELL TRE Primary Care Unavailabl e DHALIWAL II, KENTRELL [place] Attending Unavailabl e DHALIWAL II, KENTRELL TRE Primary Care Unavailabl e DHALIWAL II, KENTRELL TRE Attending Unavailabl e DHALIWAL II, KENTRELL [place] Attending Unavailabl e DHALIWAL II, KENTRELL TRE Primary Care Unavailabl e DHALIWAL II, KENTRELL [place] Attending Unavailabl e DHALIWAL II, KENTRELL TRE Primary Care Unavailabl e DHALIWAL II, KENTRELL TOL[place]O Attending Unavailabl e DHALIWAL II, KENTRELL TRE Primary Care Unavailabl e DHALIWAL II, KENTRELL TRE Referring Unavailabl e DHALIWAL II, KENTRELL TRE Primary Care UnavailPaulo Fernandez Attending Unavailable Sergio, Kentrell E Primary Care Unavailable Edmundo Peters Admitting Unavailable Edmundo Peters Consulting Unavailable Paulo Umanzor Consulting Unavailable Heriberto Bartholomew Consulting Unavailable Heriberto Bartholomew Attending Unavailable Donnie Blanchard Attending Unavailable Paulo Umanzor Referring Unavailable Edmundo Gilliland Consulting Unavailable Sergio, Kentrell E Primary Care Unavailable Jay Williamson Attending Unavailable Sergio, Kentrell E Primary Care Unavailable Samson Gan Attending Unavailluis eduardo e Dhaliwal, Kentrell E Primary Care Unavailable Edmundo Peters Consulting Unavailable Edmundo Gilliland Attending Unavailable Edmundo Peters Admitting Unavailable Paulo Umanzor Consulting Unavailable Puma, Heriberto Consulting Unavailable Edmundo Gilliland Attending Unavailable Dhaliwal, Kentrell E Primary Care Unavailable Mike Queen Attending Unavailable Edmundo Peters Attending Unavailable Edmundo Gilliland Referring Unavailable Allergies Allergy Classification Reported Allergen(s) Allergy Type Date of Onset Reaction(s) Facility (20 sources) cefdinir; Translations: [CEFDINIR] Drug Allergy 06-22-20 Diarrhea [facility] (20 sources) Codeine; Translations: [CODEINE] Drug Allergy 06-22-20 Diarrhea [facility] (20 sources) HMG-CoA reductase inhibitor; Translations: [DZNYYFR-LNV-ZRW REDUCTASE INHIBITORS] Drug Allergy 06-22-20 Diarrhea [facility] (3 sources) HYDROmorphone Drug Allergy 06-22-20 Shortness of Breath [facility] (20 sources) Latex; Translations: [LATEX] Drug Allergy 06-22-20 Anaphylaxis [facility] (20 sources) levoFLOXacin; Translations: [LEVOFLOXACIN] Drug Allergy 06-22-20 20 Diarrhea [facility] (20 sources) predniSONE; Translations: [PREDNISONE] Drug Allergy 08-30-20 21 GI Upset [facility] (20 sources) Prochlorperazine; Translations: [PROCHLORPERAZINE] Drug Allergy 06-22-20 20 Myalgia [facility] (20 sources) Sulfonamides (Antibiotic); Translations: [SULFA (SULFONAMIDE ANTIBIOTICS)] Drug Allergy 06-15-20 20 Other: See Comments [facility] (20 sources) HMG-CoA reductase inhibitor Drug Allergy 06-22-20 20 Diarrhea, Intolerance [facility] (20 sources) ARIPiprazole; Translations: [ARIPIPRAZOLE] Drug Allergy 04-19-20 22 Other: See Comments [facility] (20 sources) Shellfish; Translations: [SHELLFISH CONTAINING PRODUCTS] Drug Allergy 11-30-19 13 Swelling [facility] (8 sources) Shellfish; Translations: [shellfish derived] Allergy to substance 12-12-19 23 Anaphylaxis [facility] (7 sources) Qivdols-Wzc-Awe Reductase Inhibitor Propensity to adverse reactions 12-12-19 23 NEEDS FOLLOW-UP [facility] (20 sources) Propoxyphene; Translations: [PROPOXYPHENE] Drug Allergy 06-23-20 15 Unknown [facility] (1 source) cefdinir Drug Allergy 09-13-20 24 [facility] (1 source) Codeine Drug Allergy 09-13-20 24 [facility] (1 source) Latex Drug allergy (disorder) 09-13-20 24 [facility] (1 source) levoFLOXacin Drug Allergy 09-13-20 24 [facility] (1 source) Prochlorperazine Drug Allergy 09-13-20 24 [facility] (1 source) Xirsrxx-Lbs-Mlo Reductase Inhibitor Drug allergy (disorder) 09-13-20 24 [facility] Medications Current Medications Medication Drug Class(es) Dates Sig (Normalized) Sig (Original) [id number] actuat albuterol 0.09 mg/actuat metered dose [...] Active Start: 12-11-2022 take 1 tablet by amber twice daily Alprazolam (Xanax) 1 mg Tablet [...] Comment on above: TAKE 1 TABLET BY AMBER TH TWICE DAILY Take by mouth. Take 1 tablet by amber th every 12 hours as needed for up to 30 days. TAKE 1 TABLET BY AMBER TH EVERY 12 HOURS NEEDED amoxicillin 875 [...] Active Start: 01-07-2021 take 1 tablet by amber th four times daily as needed for diarrhea diphenoxylate-atropine (LOMOTIL) 2.5-0.025 mg per tablet Indications: Parkinson's disease (HCC) , Gastroesophageal [...] Comment on above: Take 1 tablet by amber four times daily as needed for Diarrhea for up to 5 days. Take 1 tablet by amber four times a day as needed for up to 10 days. betamethasone 0.5 mg/ml / clotrimazole 10 mg/ml topical cream (20 sources) Azole Antifungal, Corticosteroid Start: 04-18-2023 End: 10-07-2024 clotrimazole-betameth asone (LOTRISONE) cream Apply to affected area two times a day. 45 g 1 10/07/2024 Active Comment on above: Apply to affected ar ea twice daily. Bwrwhaykjm-Ktctutda-Cjukz terol (20 sources) Corticosteroid, beta2-Adrenergic Agonist Start: 12-06-2023 Qnqoqxsddk-Twoxxdbl-O ormoterol (Breztri Aerosphere) 160-9-4.8 mcg/actuation HFA aerosol [...] take 2 puff(s) by inhalation twice daily bclcubtofq-yqnxsiye-zknubpjaoh (BREZTRI AEROSPHERE) 160-9-4.8 mcg/actuation HFA aerosol inhaler [...] on above: Take 2 tablets by mo uth once daily. Take 150 mg by mouth once daily. Take 1 tablet by amber th once daily. busPIRone hydrochloride 15 mg oral [...] on above: Take [address] [facility] three times daily for 7 days. cyclobenzaprine hydrochloride 10 mg oral tablet (20 sources) Muscle Relaxant Start: 023 take 1 tablet by mouth every eight hours as needed cyclobenzaprine (FLEXERIL) 10 mg tablet Take 1 tablet by mouth three times daily as needed. 30 tablet 11/23/2022 Active Comment on above: Take 1 tablet by [facility] three times daily as needed. dicyclomine hydrochloride [...] Comment on above: Take 1 tablet by amber three times daily for 7 days. Take 1 tablet by amber three times daily. Take 1 tablet by amber three times a day. docusate sodium 100 [...] on above: Take [address] [facility] twice daily. enteric contrast (will [...] Active Start: 06-06-2022 take 1 tablet by amber th once daily ezetimibe (ZETIA) 10 mg tablet Take 1 tablet by mouth once daily. 30 tablet 3 06/06/2022 Active Start: 05-03-2022 End: 05-30-2022 take 1 tablet by mouth once daily ezetimibe (ZETIA) 10 mg tablet Take 1 tablet by mouth once daily. 30 tablet 3 05/03/2022 05/30/2022 Discontinued (Discontinued by Patient) Comment on above: Take 1 tablet by amber th once daily. ferrous gluconate 27 mg oral tablet (20 sources) Start: End: 4 take 1 tablet by mouth [...] Comment on above: Take 1 tablet by amber th twice daily. Take 1 tablet by amber th two times a day. iv contrast [...] Comment on above: Take 1 tablet by amber once daily. nabumetone 750 mg oral tablet [...] above: Take 1 capsule by mo ut twice daily for 7 days. Take [address] [facility] twice daily for 10 days. Take 1 capsule by mo ut twice daily for 14 days, THEN 1 [...] by mouth. Take 1 capsule by mo ut once daily. ondansetron 8 mg oral tablet (20 sources) Serotonin-3 Receptor Antagonist Start: take 1 tablet by mouth every eight hours as needed ondansetron orally disintegrating (ZOFRAN ODT) 4 mg disintegrating tablet Take 1 tablet by mouth every 8 hours as needed for nausea/vomiting. 21 tablet 10/03/2023 Active Start: 03-27-2023 take 1 tablet by amber th every eight hours as needed ondansetron orally disintegrating (ZOFRAN ODT) 4 mg disintegrating tablet Take 1 tablet by mouth every 8 hours as needed for nausea/vomiting. 21 tablet 0 03/27/2023 Active Start: 03-20-2023 take 1 tablet by amber th every eight hours as needed ondansetron [...] completed) Start: 05-30-2021 take 1 tablet by amber th every eight hours as needed ondansetron orally disintegrating (ZOFRAN ODT) 8 mg disintegrating tablet Take 1 tablet by mouth every 8 hours as needed for nausea/vomiting. 30 tablet 0 05/30/2021 Active Comment on above: Take 1 tablet by amber th every 8 hours as needed for nausea/vomiting. Take 1 tablet by amber th every 8 hours as needed for nausea/vomiting for up to 10 days. Take 1 tablet by amber th every 6 hours as needed. polyethylene glycol 3350 71939 mg powder for oral solution (20 sources) Osmotic Laxative Start: Polyethylene Glycol 3350 (Miralax) 17 gram/dose powder Active 17 GM PO TWICE A DAY December 06, 2023 12:00am promethazine hydrochloride 25 mg oral tablet (20 sources) Phenothiazine Start: End: 025 take 1 tablet by mouth every six hours as needed for nausea and nausea promethazine (PHENERGAN) 25 mg tablet Indications: Nausea Take 1 tablet by mouth every 6 hours as needed. 30 tablet 5 11/10/2024 Active Comment on above: Take 1 tablet by amber every 6 hours as needed. rOPINIRole 0.5 mg oral tablet (20 sources) Nonergot Dopamine Agonist Start: End: 025 take 1 tablet by mouth twice daily rOPINIRole (REQUIP) 0.5 mg tablet Take 1 tablet by mouth two times a day. 60 tablet 5 11/24/2024 Active Comment on above: Take 1 tablet by amber two times a day. simethicone 250 mg [...] on above: Take [address] [facility] twice daily. Take [address] [facility] three times a day. sodium [...] and at bedtime. Take 1 tablet by amber th four times daily for 10 days. warfarin [...] Comment on above: Take 1 tablet by amber th once daily. Completed/Discontinued Medications Medication Drug Class(es) [...] Comment on above: Take 1 tablet by amber twice daily. celecoxib 200 mg oral capsule (5 sources) Nonsteroidal Anti-inflammatory Drug Start: 01-05-2022 End: 01-13-2022 take 1 capsule by mouth every twelve hours as needed celecoxib (CELEBREX) 200 mg capsule Take 1 capsule by mouth twice daily as needed for pain. 28 capsule 0 01/05/2022 01/13/2022 Discontinued (Discontinued by Patient) Comment on above: Take [address] [facility] twice daily as needed for pain. escitalopram 20 mg oral tablet (20 sources) Serotonin Reuptake Inhibitor Start: 05-24-2021 End: 02-28-2022 take 1 tablet by mouth once daily escitalopram oxalate (LEXAPRO) 20 mg tablet Take 1 tablet by mouth once daily. 90 tablet 2 05/24/2021 02/28/2022 Discontinued (Course of therapy completed) Comment on above: Take 1 tablet by amber once daily. esomeprazole 20 mg delayed release [...] on above: Take 1 capsule by mo uth DAILY (6 AM). TAKE 1 CAPSULE BY MO UTH DAILY (6 AM) Take 1 capsule by mo uth twice daily before meals. Take 1 tablet by amber th once daily. ferrous sulfate 325 mg oral [...] on above: Take 1 capsule by mo uth twice daily with meals. mirtazapine 30 mg [...] completed) Start: 04-29-2019 take 1 tablet by amber th once daily multivitamin tablet Take 1 tablet by mouth once daily. 0 04/29/2019 Active Comment on above: Take 1 tablet by amber th once daily. sertraline 100 mg oral [...] Comment on above: Take 1 tablet by amber th once daily. TAKE 1 TABLET BY AMBER TH ONCE DAILY tiZANidine 4 mg oral capsule (20 sources) Central alpha-2 Adrenergic Agonist Start: End: take 1 capsule by mouth three times daily as needed tiZANidine HCl (ZANAFLEX) 4 mg capsule Indications: Myalgias TAKE 1 CAPSULE BY MOUTH THREE TIMES DAILY NEEDED 30 capsule 0 05/04/2022 05/30/2022 Discontinued (Discontinued by Patient) Comment on above: Take 4 mg by mouth t hree times daily as needed. Take 1 capsule by mo uth three times daily as needed. TAKE 1 CAPSULE BY MO UTH THREE TIMES DAILY NEEDED traMADol hydrochloride 50 mg oral tablet (20 sources) Opioid Agonist Start: 3 End: 4 take 1 tablet by mouth every six hours as needed traMADol (ULTRAM) 50 mg tablet Indications: Generalized abdominal pain Take 1 tablet by mouth every 6 hours as needed for up to 7 days. 28 tablet 09/03/2024 09/10/2024 Start: 03-20-2023 take 1 tablet by amber th every six hours as needed traMADol (ULTRAM) 50 mg tablet Indications: Small bowel obstruction (HCC) Take 1 tablet by mouth every 6 hours as needed. 10 tablet 0 03/20/2023 Active Start: 11-14-2021 End: 04-19-2022 traMADol (ULTRAM) 50 mg tabl et Comment on above: Take 1 tablet by amber th every 6 hours as needed. valACYclovir [...] Comment on above: Take 1 tablet by amber th three times daily for 7 days. [...] Comment on above: Take 1 tablet by amber th at bedtime as needed for up to 30 days. for insomnia. TAKE 1 TABLET BY AMBER TH EVERY DAY AT BEDTIME NEEDED FOR INSOMNIA Take 1 tablet by amber th at bedtime as needed for up to 30 days. For Insomnia Take 1 tablet by amber th at bedtime as needed for up to 90 days. For Insomnia Problems Active Problems Problem Classification Problem Date Documented Da te Episodic/Chronic Abdominal pain (20 sources) Abdominal pain; Translations: [Unspecified abdominal pain] Onset: 2 Episodic Acute and unspecified renal failure (4 sources) Injury of kidney; Translations: [Acute kidney failure, unspecified] 04-01-2023 Episodic Allergic reactions (1 source) Inflammatory dermatosis; Translations: [Dermatitis, unspecified] 04-18-2023 Episodic Anxiety disorders (20 sources) Generalized anxiety disorder; Translations: [Generalized anxiety disorder] Onset: 0 06-22-2020 Chronic Biliary tract disease (1 source) [...] sources) Long-term current use of anticoagulant; Translations: [group home (current) use of anticoagulants] 12-11-2022 Episodic Other [...] state; Translations: [Other specified postprocedural states] Episodic Syncope (1 source) Syncope; Translations: [Syncope and collapse] Episodic Thyroid disorders (20 sources) Subclinical hypothyroidism; Translations: [Other specified hypothyroidism] Onset: 0 06-22-2020 Chronic Unclassified (1 source) F/U 4 months Onset: 5 Urinary tract infections (2 sources) Recurrent urinary tract infection; Translations: [Urinary tract infection, site not specified] Episodic Past or Other Problems Problem Classification Problem Date Documented Da te Episodic/Chronic Deficiency and other anemia (2 sources) Iron [...] thrombosis and embolism] Onset: 06-22-2020 06-22-2020 Episodic Residual codes; unclassified (1 source) Illness, unspecified; Translations: [Illness, unspecified] Onset: 12-11-2024 Episodic Results Test Name Value Interpretation Reference Range Facility Abdomen/Pelvis W IV Cont ONL Yon 04-12-2025 Abdomen/Pelvis W IV Cont ONLY [facility] [address] [place] [address] Abdomen/Pelvis W IV Cont ONLY MR#: [id number] Acct: [id number] Name: ADINA ESCOBAR Rep #: [id number] : 1950 F 74 From: Otis Luna MD PCP: Dr. Kentrell Dhaliwal MD Status: REG ER Study: Abdomen/Pelvis W IV Cont ONLY Date of Exam: Exam# [id number] Ordering Dr: Jay Williamson MD PROCEDURE: ABDOMEN/PELVIS W IV CONT ONLY 04/12/2025 REASON FOR EXAM: PAIN TECHNIQUE: ABDOMEN/PELVIS W IV CONT ONLY Coronal and Sagittal reconstruction series were provided. CONTRAST: Isovue 370 VOLUME: 98 mL One or more dose reduction techniques were used (e.g., Automated exposure control, adjustment of the mA and/or kV according to patient size, use of iterative reconstruction technique. RADIATION DOSE SUMMARY: CTDlvol: 25 mGy DLP: 563 MGycm COMPARISON: 09/13/2024 FINDINGS: lung bases are clear. Punctate indeterminate hypodensity within the right lobe of the liver representing cyst or hemangioma measuring about 9 mm. Mild intrahepatic biliary dilatation in this patient who is status post cholecystectomy. This can often be seen. Normal spleen. Normal pancreas. No renal mass. No renal calculi. No abdominal aortic aneurysm. There is a ventral hernia which contains a portion of the loop of small bowel without secondary obstruction. No free-fluid or free air. Negative for evidence of appendicitis. No colonic wall thickening. Prior small bowel surgery is identified. CT/Abdomen/Pelvis W IV Cont ONLY IMPRESSION: Similar appearance of small bowel centrally when compared to the prior study with mild segmental dilatation. No significant obstruction proximally. Reading Location: [facility] CC: Dr. Jay Williamson MD; Dr. 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, [address] Absolute Neut 5.0 X10 3/uL Normal 2.0-7.7 [facility] Comment on above: Performed By: #### L 501.2450, L100.0100, L500.4050 ####[facility] [address] [place], [address] Basophils/100 WBC (Bld) 0.6 % Normal 0-1 [facility] Comment on above: Performed By: #### L 501.2450, L100.0100, L500.4050 ####[facility] [address] [place], [address] Eosinophils/100 WBC (Bld) 0.9 % Normal 0-5 [facility] Comment on above: Performed By: #### L 501.2450, L100.0100, L500.4050 ####[facility] [address] [place], [address] Erythrocyte distribution width (RBC) [Ratio] 14.0 % Normal 11.6-14.6 [facility] Comment on above: Performed By: #### L 501.2450, L100.0100, L500.4050 ####[facility] [address] [place], [address] Hematocrit (Bld) [Volume fraction] 33.5 % Low 37-47 [facility] Comment on above: Performed By: #### L 501.2450, L100.0100, L500.4050 ####[facility] [address] [place], [address] Hemoglobin (Bld) [Mass/Vol] 11.4 g/dL Low 12.0-15.0 [facility] Comment on above: Performed By: #### L 501.2450, L100.0100, L500.4050 ####[facility] [address] [place], [address] IG% 0.600 Normal 0.0-0.9 [facility] Comment on above: Result Comment: IG% - Immature Granulocytes (promyelocytes, myelocytes and metamyelocytes) > 1% indicates that a LEFT SHIFT is Present. Performed By: #### L 501.2450, L100.0100, L500.4050 ####[facility] [address] [place], [address] Lymphocytes/100 WBC (Bld) 33.1 % Normal 19-41 [facility] Comment on above: Performed By: #### L 501.2450, L100.0100, L500.4050 ####[facility] [address] [place], [address] MCH (RBC) [Entitic mass] 30.1 pg Normal 27.0-32.0 [facility] Comment on above: Performed By: #### L 501.2450, L100.0100, L500.4050 ####[facility] [address] [place], [address] MCHC (RBC) [Mass/Vol] 34.0 g/dL Normal 32-36 [facility] Comment on above: Performed By: #### L 501.2450, L100.0100, L500.4050 ####[facility] [address] [place], [address] MCV (RBC) [Entitic vol] 88.4 fL Normal 81-99 [facility] Comment on above: Performed By: #### L 501.2450, L100.0100, L500.4050 ####[facility] [address] [place], [address] Monocytes/100 WBC (Bld) 7.2 % Normal 0-10 [facility] Comment on above: Performed By: #### L 501.2450, L100.0100, L500.4050 ####[facility] [address] [place], [address] Neutrophils/100 WBC (Bld) 57.6 % Normal 47-70 [facility] Comment on above: Performed By: #### L 501.2450, L100.0100, L500.4050 ####[facility] [address] [place], [address] Nucleated RBC (Bld) [#/Vol] 0 10*3/uL Normal 0-5 [facility] Comment on above: Performed By: #### L 501.2450, L100.0100, L500.4050 ####[facility] [address] [place], [address] Platelet mean volume (Bld) [Entitic vol] 9.7 fL Normal 6.2-12.0 [facility] Comment on above: Performed By: #### L 501.2450, L100.0100, L500.4050 ####[facility] [address] [place], [address] Platelets (Bld) [#/Vol] 287 10*3/uL Normal 150-450 [facility] Comment on above: Performed By: #### L 501.2450, L100.0100, L500.4050 ####[facility] [address] [place], [address] RBC (Bld) [#/Vol] 3.79 10*6/uL Low 4.2-5.4 [facility] Comment on above: Performed By: #### L 501.2450, L100.0100, L500.4050 ####[facility] [address] [place], [address] RDW SD 45.3 fl High 35.1-43.9 [facility] Comment on above: Performed By: #### L 501.2450, L100.0100, L500.4050 ####[facility] [address] [place], [address] WBC (Bld) [#/Vol] 8.7 10*3/uL Normal 4.4-11.0 [facility] Comment on above: Performed By: #### L 501.2450, L100.0100, L500.4050 ####[facility] [address] [place], [address] Comprehensive Metabolic Prof [facility] 04-12-2025 Albumin [Mass/Vol] 4.1 g/dL Normal 3.4-4.8 [facility] Comment on above: Performed By: #### L 501.2450, L100.0100, L500.4050 ####[facility] [address] [place], [address] Albumin/Globulin [Mass ratio] 1.4 {ratio} Normal 0.9-2.4 [facility] Comment on above: Performed By: #### L 501.2450, L100.0100, L500.4050 ####[facility] [address] [place], [address] ALK PHOS 78 U/L Normal 35-104 [facility] Comment on above: Performed By: #### L 501.2450, L100.0100, L500.4050 ####[facility] [address] [place], [address] ALT [Catalytic activity/Vol] 23 U/L Normal <=34 [facility] Comment on above: Performed By: #### L 501.2450, L100.0100, L500.4050 ####[facility] [address] [place], [address] AST [Catalytic activity/Vol] 37 U/L High <=31 [facility] Comment on above: Performed By: #### L 501.2450, L100.0100, L500.4050 ####[facility] [address] [place], [address] Bilirubin [Mass/Vol] 0.76 mg/dL Normal 0.00-1.30 [facility] Comment on above: Performed By: #### L 501.2450, L100.0100, L500.4050 ####[facility] [address] [place], [address] BUN/CRE 11.2 RATIO Normal 10-20 [facility] Comment on above: Performed By: #### L 501.2450, L100.0100, L500.4050 ####[facility] [address] [place], [address] Calcium [Mass/Vol] 9.4 mg/dL Normal 7.6-11.0 [facility] Comment on above: Performed By: #### L 501.2450, L100.0100, L500.4050 ####[facility] [address] [place], [address] Chloride [Moles/Vol] 105 mmol/L Normal 98-108 [facility] Comment on above: Performed By: #### L 501.2450, L100.0100, L500.4050 ####[facility] [address] [place], [address] CO2 [Moles/Vol] 20.7 mmol/L Low 21.0-32.0 [facility] Comment on above: Performed By: #### L 501.2450, L100.0100, L500.4050 ####[facility] [address] [place], [address] Creatinine [Mass/Vol] 1.30 mg/dL High 0.70-1.20 [facility] Comment on above: Performed By: #### L 501.2450, L100.0100, L500.4050 ####[facility] [address] [place], [address] ECRCL 34.34 ml/min Low 50-250 [facility] Comment on above: Performed By: #### L 501.2450, L100.0100, L500.4050 ####[facility] [address] [place], [address] GAP 13 Normal 5-15 [facility] Comment on above: Performed By: #### L 501.2450, L100.0100, L500.4050 ####[facility] [address] [place], [address] GFR/1.73 sq M.predicted among non-blacks MDRD (S/P/Bld) [Vol rate/Area] 43 mL/min/{1.73_m2} Low >60 [facility] Comment on above: Result Comment: mL/m in/1.73m2 CKD-EPI Creatinine Equation (2020) Performed By: #### L 501.2450, L100.0100, L500.4050 ####[facility] [address] [place], [address] Globulin (S) [Mass/Vol] 2.8 g/dL Normal 2.2-4.2 [facility] Comment on above: Performed By: #### L 501.2450, L100.0100, L500.4050 ####[facility] [address] [place], [address] Glucose [Mass/Vol] 89 mg/dL Normal 70-99 [facility] Comment on above: Performed By: #### L 501.2450, L100.0100, L500.4050 ####[facility] [address] [place], [address] Potassium [Moles/Vol] 4.1 mmol/L Normal 3.3-5.1 [facility] Comment on above: Performed By: #### L 501.2450, L100.0100, L500.4050 ####[facility] [address] [place], [address] Sodium [Moles/Vol] 139 mmol/L Normal 133-145 [facility] Comment on above: Performed By: #### L 501.2450, L100.0100, L500.4050 ####[facility] [address] [place], [address] T PROT 6.9 g/dL Normal 5.9-8.4 [facility] Comment on above: Performed By: #### L 501.2450, L100.0100, L500.4050 ####[facility] [address] [place], [address] Urea nitrogen [Mass/Vol] 15 mg/dL Normal 4-19 [facility] Comment on above: Performed By: #### L 501.2450, L100.0100, L500.4050 ####[facility] [address] [place], [address] [facility] H&P Exam - Hospitalist [facility] [address] [place] [address] H P Exam - Hospitalist 04/12/25 1949 MR#: [id number] Acct: [id number] Name: ADINA ESCOBAR Rep #: [id number] : 1950 74 From: Mike Queen DO PCP: Dr. Kentrell Dhaliwal MD Status:REG ER Location: ED HPI - General General Date of Service: 04/12/25 Chief Complaint: Abdominal pain HPI Narrative ADINA ESCOBAR, is a 74 F who presents with abdominal pain that began . This is a 74-year-old female that has had a bowel resections in the past presents with a 1 week history of abdominal pain. The patient stated that this past Sunday she had eaten a hamburger, and when she is been told to avoid, and was having abdominal pain. Typically these will resolve spontaneously within a few days but this did not. Patient is having umbilical abdominal pain and has had intermittent abdominal distention. Decreased flatus as well as decreased bowel movements. But has not gotten better so she presented to the emergency room for evaluation. She had a CAT scan that showed mild segmental dilation small bowel. No significant obstruction proximally. Patient received hydromorphone and fentanyl and still is having abdominal pain but is feeling better. Given the severity of her symptoms, the hospitalist service was contacted for admission. [facility] Medical History Irritable bowel Scarlet fever Depression Hyperthyroidism DVT (deep venous thrombosis) CKD (chronic kidney disease), stage III Chronic anemia History of venous thromboembolism History of small bowel obstruction GERD (gastroesophageal reflux disease) HLD (hyperlipidemia) Anxiety and depression Hypothyroidism Home Medications ???Medication ???Instructions ???Recorded ???Last Taken ???Type alprazolam 1 mg tablet (Xanax) 1 mg PO BID anxiety 12/11/22 Unkno wn History bupropion HCl 150 mg 24 hr tablet, 150 mg PO BID mental health 11/16 04/08 Unknown History extended release esomeprazole magnesium 20 mg 20 mg PO DAILY reflux 12/11/22 Unk nown History capsule,delayed release ezetimibe 10 mg tablet 10 mg PO DAILY cholesterol 3 Unknown History levothyroxine 50 mcg tablet 50 mcg PO DAILY thyroid 12/11/22 U nknown History zolpidem 10 mg tablet (Ambien) 10 mg PO QHS sleep 12/11/22 Unknow n History docusate sodium 100 mg capsule 100 mg PO BID stool softner Unknown History budesonide 160 mcg-glycopyr 9 2 inh inhalation BID breathing Unknown History mcg-formot 4.8 mcg/actuation HFA inhaler (Breztri Aerosphere) buspirone 15 mg tablet 7.5 mg PO BID mental health Unknown History polyethylene glycol 3350 17 17 g PO BID bowels 12/06/23 Unknow n History gram/dose oral powder (Miralax) ropinirole 0.5 mg tablet 0.5 mg PO BID restless legs Unknown History warfarin 5 mg tablet 5 mg PO DAILY blood thinner Unknown History ondansetron HCl 4 mg tablet 4 mg PO Q6H PRN Nausea #10 tabs Unknown Rx furosemide 20 mg tablet 20 mg PO DAILY 09/14/24 Unknown Hi story tramadol 50 mg tablet 50 mg PO Q6H PRN PRN pain 09/14/24 Unknown History Allergy/AdvReac Type Severity Reaction Status Date / Time cefdinir (From Omnicef) Allergy Hives Verified 09/13/24 20:52 codeine Allergy NEEDS Verified 09/13/24 20:52 FOLLOW-UP latex Allergy Anaphylaxis Verified 09/13/24 20:52 prochlorperazine (From Allergy NEEDS Verified 09/13/24 20:52 Compazine) FOLLOW-UP shellfish derived Allergy Anaphylaxis Verified 09/13/24 20:52 levofloxacin (From Levaquin) AdvReac Vomiting Verified 09/13/24 20:52 Svnuwfh-KPY-TkN Reductase AdvReac NEEDS Verified 09/13/24 20:52 Inhibitor FOLLOW-UP Family History Mother Heart disease COPD (chronic obstructive pulmonary disease) Father Heart disease Hypertension CAD (coronary artery disease) Myocardial infarction Surgical History History of total abdominal hysterectomy History of colon surgery History of appendectomy History of cholecystectomy Social History household members: none Smoking Status: Never smoker alcohol intake: never substance use type: does not use ROS ROS Narrative Did have a fall a week ago because she felt too weak. Has not fallen since. Chills. No nausea or vomiting. All review of systems were negative except as mentioned above in the history of present illness and the other review of systems. Vital Signs Vital Signs Vital Signs: 04/12/25 17:09 04/12/25 17:14 04/12/25 18:14 Temperature 36.9 C 36.9 C 36.7 C Temperature Source Oral Oral Oral Pulse R (more content not included)... Normal [facility] Lipaseon 04-12-2025 Lipase [Catalytic activity/Vol] 31 U/L Normal 13-75 [facility] Comment on above: Result Comment: Michael arreola note: LIPASE revised reference range effective 22. New Lipase methodology. Expected to produce lower values than the previous assay method. NEW Reference Range: 13 - 75 U/L Performed By: #### L 501.2450, L100.0100, L500.4050 ####[facility] [address] [place], [address] [facility] -- ADINA ESCOBAR I ([id number]) 1950 F Date Time Provider Department 03/31/25 KENTRELL DHALIWAL II [facility] During your visit today, we recorded the following information about you: Husam Grant MA 03/31/2025 9:22 AM Signed Patient called in regards US on her carotids. Patient is wondering what her results are? Please advise LISA Junior Sabrina, MA 03/31/2025 10:36 AM Signed US showed <50 % stenosis to bilateral carotid arteries. Will continue to monitor this. Will repeat in 1 year. - Malcolm Salas Called patient and informed of malcolm message. Patient stated ok and thank you. 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 There is no significant change. * * * Final * * * [employer] [facility] : [id number] Normal [facility] CAROTID ARTERIES [facility] 03-30-2025 CAROTID ARTERIES [facility] Non-Invasive Vascular Laboratory [facility] Carotid Duplex Bilateral/Complete Date of service/time: 03/30/2025 2:38:58 PM Name: ADINA ESCOBAR Date of : 1950 Age: 74 [...] interpretation criteria are used as recommended by [facility] Accreditation Commission. RIGHT SIDE Common carotid artery: [...] physician: Silviano Edmondson MD, RPVI Final CC [employer] [facility] : [id number] See Link below for Image Normal [facility] CNOVon 03-05-2025 CNOV Office Visit (FMUPCN ) -- ADINA ESCOBAR I ([id number]) 1950 F Date Time Provider Department 03/05/25 1:00 PM KENTRELL DHALIWAL II [facility] During your visit today, we recorded the following information about you: Temperature Pulse Respiration Blood pressure 97.5 degrees 72/minute 14/minute 122/70 Weight Height 65.3 kg 1.549 m Kentrell Dhaliwal II, MD 03/15/2025 10:37 PM Signed Kentrell Dhaliwal II, [place] [address] NOEMI Escobar is a 74 year old [...] Prednisone GI Upset - Propoxyphene Unknown - Qwvsbij-Vog-Rlh Red* Diarrhea, Intolerance - Sulfa (Sulfonamide * Other: See Comments Leg pain - Shellfish Containin* Swelling Current Outpatient Medications Medication Sig - busPIRone (BUSPAR) 15 mg tablet Take 1 tablet by mouth two times a day. - nabume (more content not included)... [facility] Nurse Triage (FPUPDV ) -- ADINA ESCOBAR I ([id number]) 1950 F Date Time Provider Department 03/02/25 [...] was last week. Please advise Thank you [phone] Sent to our carrier clinic nurse pool Pearl Platt RN 03/02/2025 9:20 [...] No Protocols used: Heart Rate and Heartbeat Ovfobstjy-BPVOG-MG Allergies As of Date: 03/02/2025 Noted Allergy Reaction LATEX 06/22/2020 10 - Anaphylaxis ABILIFY (ARIPIPRAZOLE) 04/19/2022 14 - Other: See Comments Comments: Muscles couldn't get up CODEINE 06/22/2020 6 - Diarrhea COMPAZINE (PROCHLORPERAZINE) 06/22/2020 17 - Myalgia LEVAQUIN (LEVOFLOXACIN) 06/22/2020 6 - Diarrhea OMNICEF (CEFDINIR) 06/22/2020 6 - Diarrhea PREDNISONE 08/30/2021 8 - GI Upset PROPOXYPHENE 06/23/2015 16 - Unknown ZMGMAIF-TPN-WLT REDUCTASE INHIBIT*06/22/2020 6 - Diarrhea 5 - [...] 1 tablet by (more content not included)... [facility] ADINA ESCOBAR I ([id number]) 1950 F Date Time Provider Department 03/02/25 [facility]AL [facility] During your visit today, we recorded the [...] on her xanax. Please advise Thank you [phone] (home) [phone] (cell) Patient last appointment: 09/26/2024 Jasmin Dhaliwal, Kentrell Toledo II, MD 03/06/2025 5:06 PM Signed Addressed [...] GI Upset PROPOXYPHENE 06/23/2015 16 - Unknown XRCPJFV-UGC-EGS REDUCTASE INHIBIT*06/22/2020 6 - Diarrhea 5 - [...] (HCC) [K56.609] 04/01/2023 04/05/2023 Encounter Status:Closed by ABIGAIL RODRIGUEZ on 03/02/25 [facility] 25(OH)D3 [facility] 2024 25-hydroxyvitamin D3 [Mass/Vol] 31.0 ng/mL Normal 31.0-80.0 [facility] Comment on above: Order Comment: Speci men Type: BLOOD SPECIMEN Ordering Facility: [facility] Address: [address] [place] [address] Result Comment: Clas sification of 25 [place] Vitamin D status: Deficiency/Insufficiency: < or = 30 ng/ml. Sufficiency/Optimal Levels: 31-80 ng/mL Toxicity: > 100 ng/mL. Test performed by chemiluminescent immunoassay. Performed By: #### 1 989-3 #### [facility] CLIA [id number] [address] [place] [address] [place] Basic metabolic 2000 panelOr dered By: Radha Silva on 02-26-2025 Anion gap [Moles/Vol] 14 mmol/L 8 - 15 mmol/L [facility] Calcium [Mass/Vol] 9.3 mg/dL 8.5 - 10. 2 mg/dL [facility] Chloride [Moles/Vol] 103 mmol/L 98 - 10 7 mmol/L [facility] CO2 [Moles/Vol] 20 mmol/L Low 22 - 30 mmol/L [facility] Creatinine [Mass/Vol] 1.19 mg/dL High 0.58 - 0.96 mg/dL [facility] GFR/1.73 sq M.predicted among non-blacks MDRD (S/P/Bld) [Vol rate/Area] 48 mL/min/{1.73_m2} Low - PINF [facility] Comment on above: Estimated Glomerular Filtration Rate [...] 100 mg/dL High 74 - 99 mg/dL [facility] Comment on above: The [place] Diabete s Association (ADA) provides guidance for [...] Standards of Medical Care in Diabetes 2016, [place] Diabetes Association. Diabetes Care. 2016.39(Suppl 1). Interpretation and review of laboratory results Abnormal [facility] Potassium [Moles/Vol] 4.3 mmol/L 3.7 - 5.1 mmol/L [facility] Sodium [Moles/Vol] 137 mmol/L 136 - 144 mmol/L [facility] Urea nitrogen [Mass/Vol] 19 mg/dL 7 - 21 mg/dL [facility] Basic metabolic 2000 panelon 02-26-2025 Anion gap [Moles/Vol] 14 mmol/L Normal 8-15 [facility] Comment on above: Order Comment: Speci men Type: BLOOD SPECIMEN Ordering Facility: [facility] Address: [address] [place] [address] Performed By: #### 2 4321-2 #### [facility] [id number] [address] [place] [address] [place] Calcium [Mass/Vol] 9.3 mg/dL Normal 8.5-10.2 [facility] Comment on above: Order Comment: Speci men Type: BLOOD SPECIMEN Ordering Facility: [facility] Address: [address] [place] [address] Performed By: #### 2 4321-2 #### [facility] CLIA [id number] [address] [place] [address] [place] Chloride [Moles/Vol] 103 mmol/L Normal 98-107 [facility] Comment on above: Order Comment: Speci men Type: BLOOD SPECIMEN Ordering Facility: [facility] Address: [address] [place] [address] Performed By: #### 2 4321-2 #### [facility] [id number] [address] [place] [address] [place] CO2 [Moles/Vol] 20 mmol/L Low 22-30 [facility] Comment on above: Order Comment: Speci men Type: BLOOD SPECIMEN Ordering Facility: [facility] Address: [address] [place] [address] Performed By: #### 2 4321-2 #### [facility] [id number] [address] [place] [address] [place] Creatinine [Mass/Vol] 1.19 mg/dL High 0.58-0.96 [facility] Comment on above: Order Comment: Speci men Type: BLOOD SPECIMEN Ordering Facility: [facility] Address: [address] [place] [address] Performed By: #### 2 4321-2 #### [facility] [id number] [address] [place] [address] [place] Creatinine and Glomerular filtration rate.predicted panel (S/P/Bld) 48 mL/min/1.73m??? Low >=60 [facility] Comment on above: Order Comment: Speci men Type: BLOOD SPECIMEN Ordering Facility: [facility] Address: [address] [id number] Result Comment: [place] mated Glomerular Filtration Rate [...] GFR. Performed By: #### 2 4321-2 #### [facility] CLIA [id number] [address] [place] [address] [place] Glucose [Mass/Vol] 100 mg/dL High 74-99 [facility] Comment on above: Order Comment: Sam talley Type: BLOOD SPECIMEN Ordering Facility: [facility] Address: [address] [place] [address] Result Comment: The [place] Diabetes Association (ADA) provides guidance for cutoff [...] Standards of Medical Care in Diabetes 2016, [place] Diabetes Association. Diabetes Care. 2016.39(Suppl 1). Performed By: #### 2 4321-2 #### [facility] CLIA [id number] [address] [place] [address] [place] Potassium [Moles/Vol] 4.3 mmol/L Normal 3.7-5.1 [facility] Comment on above: Order Comment: Sam talley Type: BLOOD SPECIMEN Ordering Facility: [facility] Address: [address] [id number] Performed By: #### 2 4321-2 #### [facility] CLIA [id number] [address] [place] [address] [place] Sodium [Moles/Vol] 137 mmol/L Normal 136-144 [facility] Comment on above: Order Comment: Speci men Type: BLOOD SPECIMEN Ordering Facility: [facility] Address: [address] [place] [address] Performed By: #### 2 4321-2 #### [facility] CLIA [id number] [address] [place] [address] [place] Urea nitrogen [Mass/Vol] 19 mg/dL Normal 7-21 [facility] Comment on above: Order Comment: Speci men Type: BLOOD SPECIMEN Ordering Facility: [facility] Address: [address] [place] [address] Performed By: #### 2 4321-2 #### [facility] [id number] [address] [place] [address] [place] CBC panel Auto (Bld)on 02-26 Erythrocyte distribution width (RBC) [Ratio] 14 % 11.5 - 15.0 % [facility] Hematocrit (Bld) [Volume fraction] 36.9 % 36.0 - 46.0 % [facility] Hemoglobin (Bld) [Mass/Vol] 12.4 g/dL 11.5 - 15.5 g/dL [facility] Interpretation and review of laboratory results Normal [facility] MCH (RBC) [Entitic mass] 29.5 pg 26.0 - 34.0 pg [facility] MCHC (RBC) [Mass/Vol] 33.6 g/dL 30.5 - 36.0 g/dL [facility] MCV (RBC) [Entitic vol] 87.6 fL 80.0 - 100.0 fL [facility] Nucleated RBC (Bld) [#/Vol] NINF [facility] Platelet mean volume (Bld) [Entitic vol] 10.5 fL 9.0 - 12.7 fL [facility] Platelets (Bld) [#/Vol] 193 10*3/uL [facility] RBC (Bld) [#/Vol] 4.21 10*6/uL 3.90 - 5.2 0 m/uL [facility] WBC (Bld) [#/Vol] 6.89 10*3/uL [facility] Erythrocyte distribution width (RBC) [Ratio] 14.0 % Normal 11.5-15.0 [facility] Comment on above: Order Comment: Speci men Type: BLOOD SPECIMEN Ordering Facility: [facility] Address: [address] [place] [address] Performed By: #### 5 8410-2 #### [facility] CLIA [id number] [address] [place] [address] [place] Hematocrit (Bld) [Volume fraction] 36.9 % Normal 36.0-46.0 [facility] Comment on above: Order Comment: Speci men Type: BLOOD SPECIMEN Ordering Facility: [facility] Address: [address] [place] [address] Performed By: #### 5 8410-2 #### [facility] [id number] [address] [place] [address] [place] Hemoglobin (Bld) [Mass/Vol] 12.4 g/dL Normal 11.5-15.5 [facility] Comment on above: Order Comment: Speci men Type: BLOOD SPECIMEN Ordering Facility: [facility] Address: [address] [place] [address] Performed By: #### 5 8410-2 #### [facility] [id number] [address] [place] [address] [place] MCH (RBC) [Entitic mass] 29.5 pg Normal 26.0-34.0 [facility] Comment on above: Order Comment: Speci men Type: BLOOD SPECIMEN Ordering Facility: [facility] Address: [address] [place] [address] Performed By: #### 5 8410-2 #### [facility] [id number] [address] [place] [address] [place] MCHC (RBC) [Mass/Vol] 33.6 g/dL Normal 30.5-36.0 [facility] Comment on above: Order Comment: Speci men Type: BLOOD SPECIMEN Ordering Facility: [facility] Address: [address] [place] [address] Performed By: #### 5 8410-2 #### [facility] CLIA [id number] [address] [place] [address] [place] MCV (RBC) [Entitic vol] 87.6 fL Normal 80.0-100.0 [facility] Comment on above: Order Comment: Speci men Type: BLOOD SPECIMEN Ordering Facility: [facility] Address: [address] [place] [address] Performed By: #### 5 8410-2 #### [facility] CLIA [id number] [address] [place] [address] [place] Nucleated RBC (Bld) [#/Vol] 10*3/uL Normal <0.01 [facility] Comment on above: Order Comment: Speci men Type: BLOOD SPECIMEN Ordering Facility: [facility] Address: [address] [place] [address] Performed By: #### 5 8410-2 #### [facility] CLIA [id number] [address] [place] [address] [place] Platelet mean volume (Bld) [Entitic vol] 10.5 fL Normal 9.0-12.7 [facility] Comment on above: Order Comment: Speci men Type: BLOOD SPECIMEN Ordering Facility: [facility] Address: [address] [place] [address] Performed By: #### 5 8410-2 #### [facility] CLIA [id number] [address] [place] [address] [place] Platelets (Bld) [#/Vol] 193 10*3/uL Normal 150-400 [facility] Comment on above: Order Comment: Speci men Type: BLOOD SPECIMEN Ordering Facility: [facility] Address: [address] [place], [place] [id number] Performed By: #### 5 8410-2 #### [facility] [id number] [address] [place] [address] [place] RBC (Bld) [#/Vol] 4.21 10*6/uL Normal 3.90-5.20 [facility] Comment on above: Order Comment: Speci men Type: BLOOD SPECIMEN Ordering Facility: [facility] Address: [address] [place] [address] Performed By: #### 5 8410-2 #### [facility] [id number] [address] [place] [address] [place] WBC (Bld) [#/Vol] 6.89 10*3/uL Normal 3.70-11.00 [facility] Comment on above: Order Comment: Speci men Type: BLOOD SPECIMEN Ordering Facility: [facility] Address: [address] [place] [address] Performed By: #### 5 8410-2 #### [facility] [id number] [address] [place] [address] [place] [facility] -- ADINA ESCOBAR I ([id number]) 1950 F Date Time Provider Department 02/26/25 [facility] During your visit today, we recorded the following information about you: Maximo Cast 02/26/2025 8:38 AM Signed Patient called and would like to know if you can work her in for fatigue? She didn't know if she needs her iron or labs done to see why she's exhausted all of the time. She also said she get short winded. Please advise. Thank you. Patient last appointment:09/26/2024 (home) [phone] (cell) Maximo Cast Perla Barajas MA 02/26/2025 8:49 AM [...] closer to home since she lives in [place]! Kentrell Dhaliwal II, MD 02/26/2025 9:04 AM Signed She should go wherever is most convenient for her I can print an order for labs if she wants to go to a [facility] facility Perla Barajas MA 02/26/2025 9:06 AM Signed Left message on Tybail for patient to return our call. Phone [...] GI Upset PROPOXYPHENE 06/23/2015 16 - Unknown QOYHHHJ-ZLL-OTQ REDUCTASE INHIBIT*06/22/2020 6 - Diarrhea 5 - Intolerance SULFA (SULFONAMIDE ANTIBIOTICS) 06/15/2020 14 - Other: See Comments Comments: Leg pain [employer] 11/29/2012 7 - Swelling Date Reviewed: 01/08/2025 Reviewed by: Kentrell Dhaliwal II, MD - Fully Assessed Reason for Visit: Patient Question [1477] Primary Visit Diagnosis:Gastroesophageal reflux disease, unspecified whether esophagitis present [K21.9] Other Visit Diagnoses:Hypothyroidism, acquired [E03.9] Iron deficiency anemia, unspecified iron deficiency anemia type [D50.9] Nausea [R11.0] Vitamin D deficiency [E55.9] Vitamin B12 deficiency [E53.8] Fatigue, unspecified type [R53.83] 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 Normal [facility] Iron and Iron binding capaci ty panelon 02-26-2025 Iron [Mass/Vol] 107 ug/dL Normal 41-186 [facility] Comment on above: Order Comment: Speci men Type: BLOOD SPECIMEN Ordering Facility: [facility] Address: [address] [place] [address] Performed By: #### 2 132-9, 3016-3, 87331-3 #### [facility] CLIA [id number] [address] [place] [address] [place] Iron binding capacity [Mass/Vol] 385 ug/dL Normal 232-386 [facility] Comment on above: Order Comment: Speci men Type: BLOOD SPECIMEN Ordering Facility: [facility] Address: [address] [place] [address] Performed By: #### 2 132-9, 4776-3, 59573-2 #### [facility] CLIA [id number] [address] [place] [address] [place] Iron/TIBC [Molar ratio] 27.8 % Normal 15.0-57.0 [facility] Comment on above: Order Comment: Speci men Type: BLOOD SPECIMEN Ordering Facility: [facility] Address: [address] [place] [address] [place] [address] Performed By: #### 2 132-9, 3016-3, 50364-5 #### [facility] CLIA [id number] [address] [place] [address] [place] TSH SerPl-aCncon 02-26-2025 TSH Qn 1.550 m[IU]/L Normal 0.270-4.200 [facility] Comment on above: Order Comment: Speci men Type: BLOOD SPECIMEN Ordering Facility: [facility] Address: [address] [place] [address] Performed By: #### 2 132-9, 3016-3, 56919-4 #### [facility] CLIA [id number] [address] [place] [address] [facility] [place] Vit B12 SerPl-mCncon 025 Cobalamin (Vitamin B12) [Mass/Vol] 366 pg/mL Normal 232-1245 [facility] Comment on above: Order Comment: Speci men Type: BLOOD SPECIMEN Ordering Facility: [facility] Address: [address] [place] [address] Performed By: #### 2 132-9, 3016-3, 49197-5 #### [facility] CLIA [id number] [address] [place] [address] [place] CNPNon 01-29-2025 [facility] Telephone (FPUPDV) -- ADINA ESCOBAR I ([id number]) 1950 F Date Time Provider Department 01/29/25 [facility] During your visit today, we recorded the following information about you: Kavya Argueta 01/29/2025 9:14 AM Signed Patients daughter along with patient called today. Reason for Call: patient left 3 messages requesting refill for Xanax and has been out for 4 days now. Patient hasn't been able to sleep and anxiety is getting bad. Requesting script be sent to pharmacy today Thank you [phone] (home) [phone] (cell) Patient last appointment: 09/26/2024 Kavya Eugenia Tan MA 01/29/2025 9:22 AM Signed Please advise Kentrell Dhaliwal II, MD 01/29/2025 9:43 AM Signed This is the first refill request I have gotten. Rx sent to the pharmacy. Ileana Fish MA 01/29/2025 9:55 AM Signed Left message for pt to return the call, number provided Rogers Puri MA 01/29/2025 12:37 PM Signed When [...] GI Upset PROPOXYPHENE 06/23/2015 16 - Unknown UJFJZNC-RKX-OSE REDUCTASE INHIBIT*06/22/2020 6 - Diarrhea 5 - [...] Diabetes (HCC) [E (more content not included)... [facility] 01-08-2025 [facility] Office Visit ([facility] ) -- ADINA ESCOBAR I ([id number]) 1950 F Date Time Provider Department 01/08/25 2:00 PM KENTRELL DHALIWAL II [facility] During your visit today, we recorded the following information about you: Pulse Respiration Blood pressure Weight 82/minute 16/minute 124/74 68.8 kg Height 1.549 m Kentrell Dhaliwal II, MD 01/08/2025 5:50 PM Signed Kentrell Dhaliwal II, [place] [address] NOEMI Escobar is a 74 year old [...] [Cefdinir] Diarrhea Prednisone GI Upset Propoxyphene Unknown Zzzvsby-Laa-Tcw Red* Diarrhea, Intolerance Sulfa (Sulfonamide * Other: [...] directed. warfarin ( (more content not included)... [facility] 01-07-2025 [facility] Telephone (FMUPCN) -- ADINA ESCOBAR I ([id number]) 1950 F Date Time Provider Department 01/07/25 KENTRELL DHALIWAL II [facility] During your visit today, we recorded the [...] GI Upset PROPOXYPHENE 06/23/2015 16 - Unknown IHWOCSJ-LFS-SYH REDUCTASE INHIBIT*06/22/2020 6 - Diarrhea 5 - [...] 1 tablet by mouth once daily. - clotrimazole-betamethasone (LOTRISONE) cream Apply to affected area two times a day. - omeprazole (PRILOSEC) 40 mg capsule Take 1 capsule by mouth two times a day. - sucralfate (CARAFATE) 1 gram tablet Take 1 tablet by mouth four times daily. - vkezfpgeamt-tsezzllho-kmmh nter (TRELEGY ELLIPTA) 100-62.5-25 mcg inhalation powder Inhale [...] 1 tablet by mouth once daily. - naphazoline-pheniramine eye drops (NAPHCON-A) 0.025-0.3 % [...] 8 hours as needed for nausea/vomiting. - mmwfpiafjp-yqwktapb-pszpzq itzel (BREZTRI AEROSPHERE) 160-9-4.8 mcg/actuation HFA aerosol inhaler [...] obstruction (HCC) [K56.609] more content not included)... [facility] 12-08-2024 [facility] Telephone (FMUPCN) -- ADINA ESCOBAR I ([id number]) 1950 F Date Time Provider Department 12/08/24 KENTRELL DHALIWAL II [facility] During your visit today, we recorded the [...] GI Upset PROPOXYPHENE 06/23/2015 16 - Unknown QAGHHES-CMG-EVJ REDUCTASE INHIBIT*06/22/2020 6 - Diarrhea 5 - [...] tablet by mouth four times daily. - rpniscquxjs-tbuykelgy-mgbv nter (TRELEGY ELLIPTA) 100-62.5-25 mcg inhalation powder Inhale [...] 1 tablet by mouth once daily. - naphazoline-pheniramine eye drops (NAPHCON-A) 0.025-0.3 % [...] 8 hours as needed for nausea/vomiting. - vewqdhwvdo-hohmtadk-frnqww itzel (BREZTRI AEROSPHERE) 160-9-4.8 mcg/actuation HFA aerosol inhaler [...] Drug-induced Parkinson's di (more content not included)... [facility] 11-28-2024 [facility] Telephone (FPUPDV) -- ADINA ESCOBAR I ([id number]) 1950 F Date Time Provider Department 11/28/24 KENTRELL DHALIWAL II FPUPDV During your visit today, we recorded the following information about you: Cinthia Rob 11/28/2024 12:31 PM Signed Patient called in today. She said that she has a cough and phlegm in her throat. I advised her she could use the walk in clinic or go to [facility]. She did make an appointment as [...] GI Upset PROPOXYPHENE 06/23/2015 16 - Unknown YSVDNPL-XND-GCU REDUCTASE INHIBIT*06/22/2020 6 - Diarrhea 5 - [...] tablet by mouth four times daily. - qtzcibrcqdd-afrpraxcm-bdpp nter (TRELEGY ELLIPTA) 100-62.5-25 mcg inhalation powder Inhale [...] 8 hours as needed for nausea/vomiting. - wwksjhskaa-djbsjtpv-dhqpdv itzel (BREZTRI AEROSPHERE) 160-9-4.8 mcg/actuation HFA aerosol inhaler [...] Drug-induced Parkinson's diseas (more content not included)... [facility] 09-26-2024 [facility] Office Visit (FPUPDV ) -- ADINA ESCOBAR I ([id number]) 1950 F Date Time Provider Department 09/26/24 [...] Effective Dates: 09/18/2024 - present Responsible Staff: Gertrude Mccloud RN Discharge date: 09/17/2024 (Program start) Date of initial contact: 09/18/2024 Initial contact Target status: Successful; Contact made within 2 business days post-discharge Summary Discharged from: [facility] Admit Date: 09/14/24 Admitted for: Abdominal pain and biliary obstruction. Kentrell Dhaliwal II, MD Provider Documentation Adina Escobar is a 74 year old female [...] GI Upset PROPOXYPHENE 06/23/2015 16 - Unknown CTGDAXV-IRP-TPJ REDUCTASE INHIBIT*06/22/2020 6 - Diarrhea 5 - [...] does not work as well. Medication Question [6108] Cmt: Pt asked if she should be using the albuterol (more content not included)... Normal [facility] Basic Metabolic Profile (BMP )on 09-21-2024 BUN Normal 7-18 [facility] Comment on above: Result Comment: Canc elled via OM: Order cancelled - Patient discharged Performed By: #### L 500.2500 #### [facility] [address] [place], [address] BUN/CRE Normal 10-20 [facility] Comment on above: Result Comment: Canc elled via OM: Order cancelled - Patient discharged Performed By: #### L 500.2500 #### [facility] [address] [place], [address] CA,Total Normal 8.5-10.1 [facility] Comment on above: Result Comment: Canc elled via OM: Order cancelled - Patient discharged Performed By: #### L 500.2500 #### [facility] [address] [place], [address] CL Normal 98-107 [facility] Comment on above: Result Comment: Canc elled via OM: Order cancelled - Patient discharged Performed By: #### L 500.2500 #### [facility] [address] [place], [address] CO2 Normal 21.0-32.0 [facility] Comment on above: Result Comment: Canc elled via OM: Order cancelled - Patient discharged Performed By: #### L 500.2500 #### [facility] [address] [place], [address] CREAT,SERUM Normal 0.55-1.02 [facility] Comment on above: Result Comment: Canc elled via OM: Order cancelled - Patient discharged Performed By: #### L 500.2500 #### [facility] [address] [place], [address] EST GFR Normal >60 [facility] Comment on above: Result Comment: Canc elled via OM: Order cancelled - Patient discharged Performed By: #### L 500.2500 #### [facility] [address] [place], [address] EST GFR - AA Normal >60 [facility] Comment on above: Result Comment: Canc elled via OM: Order cancelled - Patient discharged Performed By: #### L 500.2500 #### [facility] [address] [place], [address] GAP Normal 5-15 [facility] Comment on above: Result Comment: Canc elled via OM: Order cancelled - Patient discharged Performed By: #### L 500.2500 #### [facility] [address] [place], [address] GLU Normal 74-106 [facility] Comment on above: Result Comment: Canc elled via OM: Order cancelled - Patient discharged Performed By: #### L 500.2500 #### [facility] [address] [place], [address] Potassium Normal 3.5-5.1 [facility] Comment on above: Result Comment: Canc elled via OM: Order cancelled - Patient discharged Performed By: #### L 500.2500 #### [facility] [address] [place], [address] Basic Metabolic Profile (BMP) Normal 136-145 [facility] Comment on above: Result Comment: Canc elled via OM: Order cancelled - Patient discharged Performed By: #### L 500.2500 #### [facility] [address] [place], [address] Basic Metabolic Profile (BMP )on 09-20-2024 BUN Normal 7-18 [facility] Comment on above: Result Comment: Canc elled via OM: Order cancelled - Patient discharged Performed By: #### L 500.2500 ####[facility] [address] [place], [address] BUN/CRE Normal 10-20 [facility] Comment on above: Result Comment: Canc elled via OM: Order cancelled - Patient discharged Performed By: #### L 500.2500 ####[facility] [address] [place], [address] CA,Total Normal 8.5-10.1 [facility] Comment on above: Result Comment: Canc elled via OM: Order cancelled - Patient discharged Performed By: #### L 500.2500 ####[facility] [address] [place], [address] CL Normal 98-107 [facility] Comment on above: Result Comment: Canc elled via OM: Order cancelled - Patient discharged Performed By: #### L 500.2500 ####[facility] [address] [place], [address] CO2 Normal 21.0-32.0 [facility] Comment on above: Result Comment: Canc elled via OM: Order cancelled - Patient discharged Performed By: #### L 500.2500 ####[facility] [address] [place], [address] CREAT,SERUM Normal 0.55-1.02 [facility] Comment on above: Result Comment: Canc elled via OM: Order cancelled - Patient discharged Performed By: #### L 500.2500 ####[facility] [address] [place], [address] EST GFR Normal >60 [facility] Comment on above: Result Comment: Canc elled via OM: Order cancelled - Patient discharged Performed By: #### L 500.2500 ####[facility] [address] [place], [address] EST GFR - AA Normal >60 [facility] Comment on above: Result Comment: Canc elled via OM: Order cancelled - Patient discharged Performed By: #### L 500.2500 ####[facility] [address] [place], [address] GAP Normal 5-15 [facility] Comment on above: Result Comment: Canc elled via OM: Order cancelled - Patient discharged Performed By: #### L 500.2500 ####[facility] [address] [place], [address] GLU Normal 74-106 [facility] Comment on above: Result Comment: Canc elled via OM: Order cancelled - Patient discharged Performed By: #### L 500.2500 ####[facility] [address] [place], [address] Potassium Normal 3.5-5.1 [facility] Comment on above: Result Comment: Canc elled via OM: Order cancelled - Patient discharged Performed By: #### L 500.2500 ####[facility] [address] [place], [address] Basic Metabolic Profile (BMP) Normal 136-145 [facility] Comment on above: Result Comment: Canc elled via OM: Order cancelled - Patient discharged Performed By: #### L 500.2500 ####[facility] [address] [place], [address] Prothrombin Time w/INRon INR Normal [facility] Comment on above: Result Comment: Canc elled via OM: Order cancelled - Patient discharged Performed By: #### L 300.3900 ####[facility] [address] [place], [address] PROTIME Normal 11.7-14.9 [facility] Comment on above: Result Comment: Canc elled via OM: Order cancelled - Patient discharged Performed By: #### L 300.3900 ####[facility] [address] [place], [address] Basic Metabolic Profile (BMP )on 09-19-2024 BUN Normal 7-18 [facility] Comment on above: Result Comment: Canc elled via OM: Order cancelled - Patient discharged Performed By: #### L 300.3900 #### [facility] [address] [place], [address] BUN/CRE Normal 10-20 [facility] Comment on above: Result Comment: Canc elled via OM: Order cancelled - Patient discharged Performed By: #### L 300.3900 #### [facility] [address] [place], [address] CA,Total Normal 8.5-10.1 [facility] Comment on above: Result Comment: Canc elled via OM: Order cancelled - Patient discharged Performed By: #### L 300.3900 #### [facility] [address] [place], [address] CL Normal 98-107 [facility] Comment on above: Result Comment: Canc elled via OM: Order cancelled - Patient discharged Performed By: #### L 300.3900 #### [facility] [address] [place], [address] CO2 Normal 21.0-32.0 [facility] Comment on above: Result Comment: Canc elled via OM: Order cancelled - Patient discharged Performed By: #### L 300.3900 #### [facility] [address] [place], [address] CREAT,SERUM Normal 0.55-1.02 [facility] Comment on above: Result Comment: Canc elled via OM: Order cancelled - Patient discharged Performed By: #### L 300.3900 #### [facility] [address] [place], [address] EST GFR Normal >60 [facility] Comment on above: Result Comment: Canc elled via OM: Order cancelled - Patient discharged Performed By: #### L 300.3900 #### [facility] [address] [place], [address] EST GFR - AA Normal >60 [facility] Comment on above: Result Comment: Canc elled via OM: Order cancelled - Patient discharged Performed By: #### L 300.3900 #### [facility] [address] [place], [address] GAP Normal 5-15 [facility] Comment on above: Result Comment: Canc elled via OM: Order cancelled - Patient discharged Performed By: #### L 300.3900 #### [facility] [address] [place], [address] GLU Normal 74-106 [facility] Comment on above: Result Comment: Canc elled via OM: Order cancelled - Patient discharged Performed By: #### L 300.3900 #### [facility] [address] [place], [address] Potassium Normal 3.5-5.1 [facility] Comment on above: Result Comment: Canc elled via OM: Order cancelled - Patient discharged Performed By: #### L 300.3900 #### [facility] [address] [place], [address] Basic Metabolic Profile (BMP) Normal 136-145 [facility] Comment on above: Result Comment: Canc elled via OM: Order cancelled - Patient discharged Performed By: #### L 300.3900 #### [facility] [address] [place], [address] Prothrombin Time w/INRon INR Normal [facility] Comment on above: Result Comment: Canc elled via OM: Order cancelled - Patient discharged Performed By: #### L 300.3900 #### [facility] [address] [place], [address] PROTIME Normal 11.7-14.9 [facility] Comment on above: Result Comment: Canc elled via OM: Order cancelled - Patient discharged Performed By: #### L 300.3900 #### [facility] [address] [place], [address] Basic Metabolic Profile (BMP )on 09-18-2024 BUN Normal 7-18 [facility] Comment on above: Result Comment: Canc elled via OM: Order cancelled - Patient discharged Performed By: #### L 300.3900 #### [facility] [address] [place], [address] BUN/CRE Normal 10-20 [facility] Comment on above: Result Comment: Canc elled via OM: Order cancelled - Patient discharged Performed By: #### L 300.3900 #### [facility] [address] [place], [address] CA,Total Normal 8.5-10.1 [facility] Comment on above: Result Comment: Canc elled via OM: Order cancelled - Patient discharged Performed By: #### L 300.3900 #### [facility] [address] [place], [address] CL Normal 98-107 [facility] Comment on above: Result Comment: Canc elled via OM: Order cancelled - Patient discharged Performed By: #### L 300.3900 #### [facility] [address] [place], [address] CO2 Normal 21.0-32.0 [facility] Comment on above: Result Comment: Canc elled via OM: Order cancelled - Patient discharged Performed By: #### L 300.3900 #### [facility] [address] [place], [address] CREAT,SERUM Normal 0.55-1.02 [facility] Comment on above: Result Comment: Canc elled via OM: Order cancelled - Patient discharged Performed By: #### L 300.3900 #### [facility] [address] [place], [address] EST GFR Normal >60 [facility] Comment on above: Result Comment: Canc elled via OM: Order cancelled - Patient discharged Performed By: #### L 300.3900 #### [facility] [address] [place], [address] EST GFR - AA Normal >60 [facility] Comment on above: Result Comment: Canc elled via OM: Order cancelled - Patient discharged Performed By: #### L 300.3900 #### [facility] [address] [place], [address] GAP Normal 5-15 [facility] Comment on above: Result Comment: Canc elled via OM: Order cancelled - Patient discharged Performed By: #### L 300.3900 #### [facility] [address] [place], [address] GLU Normal 74-106 [facility] Comment on above: Result Comment: Canc elled via OM: Order cancelled - Patient discharged Performed By: #### L 300.3900 #### [facility] [address] [place], [address] Potassium Normal 3.5-5.1 [facility] Comment on above: Result Comment: Canc elled via OM: Order cancelled - Patient discharged Performed By: #### L 300.3900 #### [facility] [address] [place], [address] Basic Metabolic Profile (BMP) Normal 136-145 [facility] Comment on above: Result Comment: Canc elled via OM: Order cancelled - Patient discharged Performed By: #### L 300.3900 #### [facility] [address] [place], [address] Prothrombin Time w/INRon INR Normal [facility] Comment on above: Result Comment: Canc elled via OM: Order cancelled - Patient discharged Performed By: #### L 300.3900 #### [facility] [address] [place], [address] PROTIME Normal 11.7-14.9 [facility] Comment on above: Result Comment: Canc elled via OM: Order cancelled - Patient discharged Performed By: #### L 300.3900 #### [facility] [address] [place], [address] Basic Metabolic Profile (BMP )on 09-17-2024 BUN/CRE 11.9 RATIO Normal 10-20 [facility] Comment on above: Performed By: #### L 100.0100, L500.3400, L500.2500 ####[facility] [address] [place], [address] CA,Total 8.7 mg/dL Normal 8.5-10.1 [facility] Comment on above: Performed By: #### L 100.0100, L500.3400, L500.2500 ####[facility] [address] [place], [address] Chloride [Moles/Vol] 111 mmol/L High 98-107 [facility] Comment on above: Performed By: #### L 100.0100, L500.3400, L500.2500 ####[facility] [address] [place], [address] CO2 [Moles/Vol] 23.0 mmol/L Normal 21.0-32.0 [facility] Comment on above: Performed By: #### L 100.0100, L500.3400, L500.2500 ####[facility] [address] [place], [address] Creatinine [Mass/Vol] 0.92 mg/dL Normal 0.55-1.02 [facility] Comment on above: Result Comment: The validity of the calculated GFR GFRAA in patients over 70 years has not been determined. Clinical correlation is essential. Performed By: #### L 100.0100, L500.3400, L500.2500 ####[facility] [address] [place], [address] ECRCL 47.01 ml/min Normal [facility] Comment on above: Performed By: #### L 100.0100, L500.3400, L500.2500 ####[facility] [address] [place], [address] EST GFR - AA 77 mL/min Normal >60 [facility] Comment on above: Result Comment: Afri can [place]i GFR Calc Performed By: #### L 100.0100, L500.3400, L500.2500 ####[facility] [address] [place], [address] GAP 5 Normal 5-15 [facility] Comment on above: Performed By: #### L 100.0100, L500.3400, L500.2500 ####[facility] [address] [place], [address] GFR/1.73 sq M.predicted among non-blacks MDRD (S/P/Bld) [Vol rate/Area] 63 mL/min/{1.73_m2} Normal >60 [facility] Comment on above: Result Comment: Non- GFR Calc Performed By: #### L 100.0100, L500.3400, L500.2500 ####[facility] [address] [place], [address] Glucose [Mass/Vol] 112 mg/dL High 74-106 [facility] Comment on above: Result Comment: Fast ing Glucose result from 100 to 125 mg/dL suggests IMPAIRED HOMEOSTASIS per A.D.A. criteria. Performed By: #### L 100.0100, L500.3400, L500.2500 ####[facility] [address] [place], [address] Potassium [Moles/Vol] 3.6 mmol/L Normal 3.5-5.1 [facility] Comment on above: Performed By: #### L 100.0100, L500.3400, L500.2500 ####[facility] [address] [place], [address] Sodium [Moles/Vol] 139 mmol/L Normal 136-145 [facility] Comment on above: Performed By: #### L 100.0100, L500.3400, L500.2500 ####[facility] [address] [place], [address] Urea nitrogen [Mass/Vol] 11 mg/dL Normal 7-18 [facility] Comment on above: Performed By: #### L 100.0100, L500.3400, L500.2500 ####[facility] [address] [place], [address] CBC W/Diff, Automatedon 01-0 -2024 Absolute Lymph 2.48 X10 3/uL Normal 0.83-4.51 [facility] Comment on above: Performed By: #### L 100.0100, L500.3400, L500.2500 ####[facility] [address] [place], [address] Absolute Neut 4.7 X10 3/uL Normal 2.0-7.7 [facility] Comment on above: Performed By: #### L 100.0100, L500.3400, L500.2500 ####[facility] [address] [place], [address] Basophils/100 WBC (Bld) 0.7 % Normal 0-1 [facility] Comment on above: Performed By: #### L 100.0100, L500.3400, L500.2500 ####[facility] [address] [place], [address] Eosinophils/100 WBC (Bld) 3.6 % Normal 0-5 [facility] Comment on above: Performed By: #### L 100.0100, L500.3400, L500.2500 ####[facility] [address] [place], [address] Erythrocyte distribution width (RBC) [Ratio] 13.2 % Normal 11.6-14.6 [facility] Comment on above: Performed By: #### L 100.0100, L500.3400, L500.2500 ####[facility] [address] [place], [address] Hematocrit (Bld) [Volume fraction] 30.4 % Low 37-47 [facility] Comment on above: Performed By: #### L 100.0100, L500.3400, L500.2500 ####[facility] [address] [place], [address] Hemoglobin (Bld) [Mass/Vol] 9.9 g/dL Low 12.0-15.0 [facility] Comment on above: Performed By: #### L 100.0100, L500.3400, L500.2500 ####[facility] [address] [place], [address] IG% 0.400 Normal 0.0-0.9 [facility] Comment on above: Result Comment: IG% - Immature Granulocytes (promyelocytes, myelocytes and metamyelocytes) > 1% indicates that a LEFT SHIFT is Present. Performed By: #### L 100.0100, L500.3400, L500.2500 ####[facility] [address] [place], [address] Lymphocytes/100 WBC (Bld) 29.8 % Normal 19-41 [facility] Comment on above: Performed By: #### L 100.0100, L500.3400, L500.2500 ####[facility] [address] [place], [address] MCH (RBC) [Entitic mass] 29.6 pg Normal 27.0-32.0 [facility] Comment on above: Performed By: #### L 100.0100, L500.3400, L500.2500 ####[facility] [address] [place], [address] MCHC (RBC) [Mass/Vol] 32.6 g/dL Normal 32-36 [facility] Comment on above: Performed By: #### L 100.0100, L500.3400, L500.2500 ####[facility] [address] [place], [address] MCV (RBC) [Entitic vol] 90.7 fL Normal 81-99 [facility] Comment on above: Performed By: #### L 100.0100, L500.3400, L500.2500 ####[facility] [address] [place], [address] Monocytes/100 WBC (Bld) 9.5 % Normal 0-10 [facility] Comment on above: Performed By: #### L 100.0100, L500.3400, L500.2500 ####[facility] [address] [place], [address] Neutrophils/100 WBC (Bld) 56.0 % Normal 47-70 [facility] Comment on above: Performed By: #### L 100.0100, L500.3400, L500.2500 ####[facility] [address] [place], [address] Nucleated RBC (Bld) [#/Vol] 0 10*3/uL Normal 0-5 [facility] Comment on above: Performed By: #### L 100.0100, L500.3400, L500.2500 ####[facility] [address] [place], [address] Platelet mean volume (Bld) [Entitic vol] 9.6 fL Normal 6.2-12.0 [facility] Comment on above: Performed By: #### L 100.0100, L500.3400, L500.2500 ####[facility] [address] [place], [address] Platelets (Bld) [#/Vol] 372 10*3/uL Normal 150-450 [facility] Comment on above: Performed By: #### L 100.0100, L500.3400, L500.2500 ####[facility] [address] [place], [address] RBC (Bld) [#/Vol] 3.35 10*6/uL Low 4.2-5.4 [facility] Comment on above: Performed By: #### L 100.0100, L500.3400, L500.2500 ####[facility] [address] [place], [address] RDW SD 43.8 fl Normal 35.1-43.9 [facility] Comment on above: Performed By: #### L 100.0100, L500.3400, L500.2500 ####[facility] [address] [place], [address] WBC (Bld) [#/Vol] 8.3 10*3/uL Normal 4.4-11.0 [facility] Comment on above: Performed By: #### L 100.0100, L500.3400, L500.2500 ####[facility] [address] [place], [address] Liver Profileon 09-17-2024 Albumin [Mass/Vol] 3.0 g/dL Low 3.2-5.0 [facility] Comment on above: Performed By: #### L 100.0100, L500.3400, L500.2500 ####[facility] [address] [place], [address] ALK P 119 U/L High 45-117 [facility] Comment on above: Performed By: #### L 100.0100, L500.3400, L500.2500 ####[facility] [address] [place], [address] ALT [Catalytic activity/Vol] 71 U/L High 13-56 [facility] Comment on above: Performed By: #### L 100.0100, L500.3400, L500.2500 ####[facility] [address] [place], [address] AST [Catalytic activity/Vol] 54 U/L High 15-37 [facility] Comment on above: Performed By: #### L 100.0100, L500.3400, L500.2500 ####[facility] [address] [place], [address] Bilirubin [Mass/Vol] 0.50 mg/dL Normal 0.20-1.00 [facility] Comment on above: Result Comment: For patients on eltrombopag therapy, use of Dimension [place] TBIL is not recommended. Performed By: #### L 100.0100, L500.3400, L500.2500 ####[facility] [address] [place], [address] Bilirubin.direct [Mass/Vol] 0.13 mg/dL Normal 0.00-0.30 [facility] Comment on above: Performed By: #### L 100.0100, L500.3400, L500.2500 ####[facility] [address] [place], [address] Globulin (S) [Mass/Vol] 3.4 g/dL Normal 2.2-4.2 [facility] Comment on above: Performed By: #### L 100.0100, L500.3400, L500.2500 ####[facility] [address] [place], [address] T PROT 6.4 g/dL Normal 6.4-8.2 [facility] Comment on above: Performed By: #### L 100.0100, L500.3400, L500.2500 ####[facility] [address] [place], [address] Prothrombin Time w/INRon INR Coag (PPP) [Relative time] 1.1 {INR} Normal [facility] Comment on above: Performed By: #### L 300.3900 #### [facility] [address] [place], [address] PT Coag (PPP) [Time] 14.8 s Normal 11.7-14.9 [facility] Comment on above: Performed By: #### L 300.3900 #### [facility] [address] [place], [address] Basic Metabolic Profile (BMP )on 09-16-2024 BUN/CRE 14.9 RATIO Normal 10-20 [facility] Comment on above: Performed By: #### L 300.3900 #### [facility] [address] [place], [address] CA,Total 8.5 mg/dL Normal 8.5-10.1 [facility] Comment on above: Performed By: #### L 300.3900 #### [facility] [address] [place], [address] Chloride [Moles/Vol] 108 mmol/L High 98-107 [facility] Comment on above: Performed By: #### L 300.3900 #### [facility] [address] [place], [address] CO2 [Moles/Vol] 23.0 mmol/L Normal 21.0-32.0 [facility] Comment on above: Performed By: #### L 300.3900 #### [facility] [address] [place], [address] Creatinine [Mass/Vol] 0.94 mg/dL Normal 0.55-1.02 [facility] Comment on above: Result Comment: The validity of the calculated GFR GFRAA in patients over 70 years has not been determined. Clinical correlation is essential. Performed By: #### L 300.3900 #### [facility] [address] [place], [address] ECRCL 46.01 ml/min Normal [facility] Comment on above: Performed By: #### L 300.3900 #### [facility] [address] [place], [address] EST GFR - AA 75 mL/min Normal >60 [facility] Comment on above: Result Comment: Afri can [place]i GFR Calc Performed By: #### L 300.3900 #### [facility] [address] [place], [address] GAP 6 Normal 5-15 [facility] Comment on above: Performed By: #### L 300.3900 #### [facility] [address] [place], [address] GFR/1.73 sq M.predicted among non-blacks MDRD (S/P/Bld) [Vol rate/Area] 62 mL/min/{1.73_m2} Normal >60 [facility] Comment on above: Result Comment: Non- GFR Calc Performed By: #### L 300.3900 #### [facility] [address] [place], [address] Glucose [Mass/Vol] 103 mg/dL Normal 74-106 [facility] Comment on above: Result Comment: Fast ing Glucose result from 100 to 125 mg/dL suggests IMPAIRED HOMEOSTASIS per A.D.A. criteria. Performed By: #### L 300.3900 #### [facility] [address] [place], [address] Potassium [Moles/Vol] 3.8 mmol/L Normal 3.5-5.1 [facility] Comment on above: Performed By: #### L 300.3900 #### [facility] [address] [place], [address] Sodium [Moles/Vol] 138 mmol/L Normal 136-145 [facility] Comment on above: Performed By: #### L 300.3900 #### [facility] [address] [place], [address] Urea nitrogen [Mass/Vol] 14 mg/dL Normal 7-18 [facility] Comment on above: Performed By: #### L 300.3900 #### [facility] [address] [place], [address] CBC W/Diff, Automatedon 12-3 -2023 Absolute Lymph 2.92 X10 3/uL Normal 0.83-4.51 [facility] Comment on above: Performed By: #### L 300.3900 #### [facility] [address] [place], [address] Absolute Neut 4.6 X10 3/uL Normal 2.0-7.7 [facility] Comment on above: Performed By: #### L 300.3900 #### [facility] [address] [place], [address] Basophils/100 WBC (Bld) 0.9 % Normal 0-1 [facility] Comment on above: Performed By: #### L 300.3900 #### [facility] [address] [place], [address] Eosinophils/100 WBC (Bld) 2.8 % Normal 0-5 [facility] Comment on above: Performed By: #### L 300.3900 #### [facility] [address] [place], [address] Erythrocyte distribution width (RBC) [Ratio] 13.2 % Normal 11.6-14.6 [facility] Comment on above: Performed By: #### L 300.3900 #### [facility] [address] [place], [address] Hematocrit (Bld) [Volume fraction] 30.8 % Low 37-47 [facility] Comment on above: Performed By: #### L 300.3900 #### [facility] [address] [place], [address] Hemoglobin (Bld) [Mass/Vol] 10.1 g/dL Low 12.0-15.0 [facility] Comment on above: Performed By: #### L 300.3900 #### [facility] [address] [place], [address] IG% 0.500 Normal 0.0-0.9 [facility] Comment on above: Result Comment: IG% - Immature Granulocytes (promyelocytes, myelocytes and metamyelocytes) > 1% indicates that a LEFT SHIFT is Present. Performed By: #### L 300.3900 #### [facility] [address] [place], [address] Lymphocytes/100 WBC (Bld) 33.8 % Normal 19-41 [facility] Comment on above: Performed By: #### L 300.3900 #### [facility] [address] [place], [address] MCH (RBC) [Entitic mass] 30.3 pg Normal 27.0-32.0 [facility] Comment on above: Performed By: #### L 300.3900 #### [facility] [address] [place], [address] MCHC (RBC) [Mass/Vol] 32.8 g/dL Normal 32-36 [facility] Comment on above: Performed By: #### L 300.3900 #### [facility] [address] [place], [address] MCV (RBC) [Entitic vol] 92.5 fL Normal 81-99 [facility] Comment on above: Performed By: #### L 300.3900 #### [facility] [address] [place], [address] Monocytes/100 WBC (Bld) 9.5 % Normal 0-10 [facility] Comment on above: Performed By: #### L 300.3900 #### [facility] [address] [place], [address] Neutrophils/100 WBC (Bld) 52.5 % Normal 47-70 [facility] Comment on above: Performed By: #### L 300.3900 #### [facility] [address] [place], [address] Nucleated RBC (Bld) [#/Vol] 0 10*3/uL Normal 0-5 [facility] Comment on above: Performed By: #### L 300.3900 #### [facility] [address] [place], [address] Platelet mean volume (Bld) [Entitic vol] 9.8 fL Normal 6.2-12.0 [facility] Comment on above: Performed By: #### L 300.3900 #### [facility] [address] [place], [address] Platelets (Bld) [#/Vol] 382 10*3/uL Normal 150-450 [facility] Comment on above: Performed By: #### L 300.3900 #### [facility] [address] [place], [address] RBC (Bld) [#/Vol] 3.33 10*6/uL Low 4.2-5.4 [facility] Comment on above: Performed By: #### L 300.3900 #### [facility] [address] [place], [address] RDW SD 44.8 fl High 35.1-43.9 [facility] Comment on above: Performed By: #### L 300.3900 #### [facility] [address] [place], [address] WBC (Bld) [#/Vol] 8.7 10*3/uL Normal 4.4-11.0 [facility] Comment on above: Performed By: #### L 300.3900 #### [facility] [address] [place], [address] L501.5101on 09-16-2024 GGTP 89 IU/L Abnormal 0-60 [facility] Comment on above: Order Comment: ICU C ALLED AND INFORMED US THAT THIS PT IS OUR DRAW RAN OZZY MELLO. Result Comment: Perf ormed at: CB - [facility] [address] [id number] [employer]ender Snuff: Chip Bray PhD, Phone: [phone] Performed By: #### L 300.3900 #### [facility] [address] [place], [address] Liver Profileon 09-16-2024 Albumin [Mass/Vol] 2.9 g/dL Low 3.2-5.0 [facility] Comment on above: Performed By: #### L 300.3900 #### [facility] [address] [place], [address] ALK P 124 U/L High 45-117 [facility] Comment on above: Performed By: #### L 300.3900 #### [facility] [address] [place], [address] ALT [Catalytic activity/Vol] 92 U/L High 13-56 [facility] Comment on above: Performed By: #### L 300.3900 #### [facility] [address] [place], [address] AST [Catalytic activity/Vol] 79 U/L High 15-37 [facility] Comment on above: Performed By: #### L 300.3900 #### [facility] [address] [place], [address] Bilirubin [Mass/Vol] 0.70 mg/dL Normal 0.20-1.00 [facility] Comment on above: Result Comment: For patients on eltrombopag therapy, use of Dimension [place] TBIL is not recommended. Performed By: #### L 300.3900 #### [facility] [address] [place], [address] Bilirubin.direct [Mass/Vol] 0.14 mg/dL Normal 0.00-0.30 [facility] Comment on above: Performed By: #### L 300.3900 #### [facility] [address] [place], [address] Globulin (S) [Mass/Vol] 3.5 g/dL Normal 2.2-4.2 [facility] Comment on above: Performed By: #### L 300.3900 #### [facility] [address] [place], [address] T PROT 6.4 g/dL Normal 6.4-8.2 [facility] Comment on above: Performed By: #### L 300.3900 #### [facility] [address] [place], [address] Prothrombin Time w/INRon INR Coag (PPP) [Relative time] 1.2 {INR} Normal [facility] Comment on above: Performed By: #### L 300.3900 #### [facility] [address] [place], [address] PT Coag (PPP) [Time] 15.4 s High 11.7-14.9 [facility] Comment on above: Performed By: #### L 300.3900 #### [facility] [address] [place], [address] Basic Metabolic Profile (BMP )on 09-15-2024 BUN/CRE 15.7 RATIO Normal 10-20 [facility] Comment on above: Performed By: #### L 100.0100, L500.2500, L500.3400 ####[facility] [address] [place], [address] CA,Total 8.7 mg/dL Normal 8.5-10.1 [facility] Comment on above: Performed By: #### L 100.0100, L500.2500, L500.3400 ####[facility] [address] [place], [address] Chloride [Moles/Vol] 114 mmol/L High 98-107 [facility] Comment on above: Performed By: #### L 100.0100, L500.2500, L500.3400 ####[facility] [address] [place], [address] CO2 [Moles/Vol] 23.0 mmol/L Normal 21.0-32.0 [facility] Comment on above: Performed By: #### L 100.0100, L500.2500, L500.3400 ####[facility] [address] [place], [address] Creatinine [Mass/Vol] 0.96 mg/dL Normal 0.55-1.02 [facility] Comment on above: Result Comment: The validity of the calculated GFR GFRAA in patients over 70 years has not been determined. Clinical correlation is essential. Performed By: #### L 100.0100, L500.2500, L500.3400 ####[facility] [address] [place], [address] ECRCL 45.07 ml/min Normal [facility] Comment on above: Performed By: #### L 100.0100, L500.2500, L500.3400 ####[facility] [address] [place], [address] EST GFR - AA 74 mL/min Normal >60 [facility] Comment on above: Result Comment: Afri can [place] GFR Calc Performed By: #### L 100.0100, L500.2500, L500.3400 ####[facility] [address] [place], [address] GAP 3 Low 5-15 [facility] Comment on above: Performed By: #### L 100.0100, L500.2500, L500.3400 ####[facility] [address] [place], [address] GFR/1.73 sq M.predicted among non-blacks MDRD (S/P/Bld) [Vol rate/Area] 61 mL/min/{1.73_m2} Normal >60 [facility] Comment on above: Result Comment: Non- GFR Calc Performed By: #### L 100.0100, L500.2500, L500.3400 ####[facility] [address] [place], [address] Glucose [Mass/Vol] 112 mg/dL High 74-106 [facility] Comment on above: Result Comment: Fast ing Glucose result from 100 to 125 mg/dL suggests IMPAIRED HOMEOSTASIS per A.D.A. criteria. Performed By: #### L 100.0100, L500.2500, L500.3400 ####[facility] [address] [place], [address] Potassium [Moles/Vol] 4.0 mmol/L Normal 3.5-5.1 [facility] Comment on above: Performed By: #### L 100.0100, L500.2500, L500.3400 ####[facility] [address] [place], [address] Sodium [Moles/Vol] 140 mmol/L Normal 136-145 [facility] Comment on above: Performed By: #### L 100.0100, L500.2500, L500.3400 ####[facility] [address] [place], [address] Urea nitrogen [Mass/Vol] 15 mg/dL Normal 7-18 [facility] Comment on above: Performed By: #### L 100.0100, L500.2500, L500.3400 ####[facility] [address] [place], [address] CBC W/Diff, Automatedon 12-3 0-2024 Absolute Lymph 2.24 X10 3/uL Normal 0.83-4.51 [facility] Comment on above: Performed By: #### L 100.0100, L500.2500, L500.3400 ####[facility] [address] [place], [address] Absolute Neut 6.9 X10 3/uL Normal 2.0-7.7 [facility] Comment on above: Performed By: #### L 100.0100, L500.2500, L500.3400 ####[facility] [address] [place], [address] Basophils/100 WBC (Bld) 0.3 % Normal 0-1 [facility] Comment on above: Performed By: #### L 100.0100, L500.2500, L500.3400 ####[facility] [address] [place], [address] Eosinophils/100 WBC (Bld) 0.2 % Normal 0-5 [facility] Comment on above: Performed By: #### L 100.0100, L500.2500, L500.3400 ####[facility] [address] [place], [address] Erythrocyte distribution width (RBC) [Ratio] 13.2 % Normal 11.6-14.6 [facility] Comment on above: Performed By: #### L 100.0100, L500.2500, L500.3400 ####[facility] [address] [place], [address] Hematocrit (Bld) [Volume fraction] 30.6 % Low 37-47 [facility] Comment on above: Performed By: #### L 100.0100, L500.2500, L500.3400 ####[facility] [address] [place], [address] Hemoglobin (Bld) [Mass/Vol] 9.7 g/dL Low 12.0-15.0 [facility] Comment on above: Performed By: #### L 100.0100, L500.2500, L500.3400 ####[facility] [address] [place], [address] IG% 0.600 Normal 0.0-0.9 [facility] Comment on above: Result Comment: IG% - Immature Granulocytes (promyelocytes, myelocytes and metamyelocytes) > 1% indicates that a LEFT SHIFT is Present. Performed By: #### L 100.0100, L500.2500, L500.3400 ####[facility] [address] [place], [address] Lymphocytes/100 WBC (Bld) 22.1 % Normal 19-41 [facility] Comment on above: Performed By: #### L 100.0100, L500.2500, L500.3400 ####[facility] [address] [place], [address] MCH (RBC) [Entitic mass] 29.0 pg Normal 27.0-32.0 [facility] Comment on above: Performed By: #### L 100.0100, L500.2500, L500.3400 ####[facility] [address] [place], [address] MCHC (RBC) [Mass/Vol] 31.7 g/dL Low 32-36 [facility] Comment on above: Performed By: #### L 100.0100, L500.2500, L500.3400 ####[facility] [address] [place], [address] MCV (RBC) [Entitic vol] 91.3 fL Normal 81-99 [facility] Comment on above: Performed By: #### L 100.0100, L500.2500, L500.3400 ####[facility] [address] [place], [address] Monocytes/100 WBC (Bld) 8.9 % Normal 0-10 [facility] Comment on above: Performed By: #### L 100.0100, L500.2500, L500.3400 ####[facility] [address] [place], [address] Neutrophils/100 WBC (Bld) 67.9 % Normal 47-70 [facility] Comment on above: Performed By: #### L 100.0100, L500.2500, L500.3400 ####[facility] [address] [place], [address] Nucleated RBC (Bld) [#/Vol] 0 10*3/uL Normal 0-5 [facility] Comment on above: Performed By: #### L 100.0100, L500.2500, L500.3400 ####[facility] [address] [place], [address] Platelet mean volume (Bld) [Entitic vol] 9.1 fL Normal 6.2-12.0 [facility] Comment on above: Performed By: #### L 100.0100, L500.2500, L500.3400 ####[facility] [address] [place], [address] Platelets (Bld) [#/Vol] 370 10*3/uL Normal 150-450 [facility] Comment on above: Performed By: #### L 100.0100, L500.2500, L500.3400 ####[facility] [address] [place], [address] RBC (Bld) [#/Vol] 3.35 10*6/uL Low 4.2-5.4 [facility] Comment on above: Performed By: #### L 100.0100, L500.2500, L500.3400 ####[facility] [address] [place], [address] RDW SD 43.8 fl Normal 35.1-43.9 [facility] Comment on above: Performed By: #### L 100.0100, L500.2500, L500.3400 ####[facility] [address] [place], [address] WBC (Bld) [#/Vol] 10.1 10*3/uL Normal 4.4-11.0 [facility] Comment on above: Performed By: #### L 100.0100, L500.2500, L500.3400 ####[facility] [address] [place], [address] Liver Profileon 09-15-2024 Albumin [Mass/Vol] 2.9 g/dL Low 3.2-5.0 [facility] Comment on above: Performed By: #### L 100.0100, L500.2500, L500.3400 ####[facility] [address] [place], [address] ALK P 136 U/L High 45-117 [facility] Comment on above: Performed By: #### L 100.0100, L500.2500, L500.3400 ####[facility] [address] [place], [address] ALT [Catalytic activity/Vol] 129 U/L High 13-56 [facility] Comment on above: Performed By: #### L 100.0100, L500.2500, L500.3400 ####[facility] [address] [place], [address] AST [Catalytic activity/Vol] 145 U/L High 15-37 [facility] Comment on above: Performed By: #### L 100.0100, L500.2500, L500.3400 ####[facility] [address] [place], [address] Bilirubin [Mass/Vol] 0.60 mg/dL Normal 0.20-1.00 [facility] Comment on above: Result Comment: For patients on eltrombopag therapy, use of Dimension [place] TBIL is not recommended. Performed By: #### L 100.0100, L500.2500, L500.3400 ####[facility] [address] [place], [address] Bilirubin.direct [Mass/Vol] 0.17 mg/dL Normal 0.00-0.30 [facility] Comment on above: Performed By: #### L 100.0100, L500.2500, L500.3400 ####[facility] [address] [place], [address] Globulin (S) [Mass/Vol] 3.5 g/dL Normal 2.2-4.2 [facility] Comment on above: Performed By: #### L 100.0100, L500.2500, L500.3400 ####[facility] [address] [place], [address] T PROT 6.4 g/dL Normal 6.4-8.2 [facility] Comment on above: Performed By: #### L 100.0100, L500.2500, L500.3400 ####[facility] [address] [place], [address] MR/CON.PCM.GIon 09-15-2024 MR/CON.PCM.GI [facility] Medical Records Department [address] [place] [address] Consultation - GI 09/15/24 1636 MR#: [id number] Acct: [id number] Name: ADINA ESCOBAR Rep #: [id number] : 1950 74 From: Donnie Blanchard DO PCP: Dr. Kentrell Dhaliwal MD Status:ADM IN Location: ICU [id number] HPI Consult Data Date of Consult: 09/15/24 HPI Narrative HPI Narrative: ADINA ESCOBAR, is a 74 F with a past medical history of history of DVT; on Coumadin who presents with progressively worsening abdominal pain that was tender to palpation. She also admits to nausea and chills but denies vomiting. She states the pain is severe 10/10 and radiating into her back with an associated tension-type headache. She additionally admits to shortness of breath with a sensation of tightness in her chest that radiated into her abdomen for which she took an albuterol inhaler which actually seems to make her symptoms worse. In the ER she was noted to have CT evidence of dilated intra and extrahepatic bile ducts and pancreatic duct with radiologist recommending HIDA scan and/or MRCP with ileus and postop changes c omplicated by Leukocytosis of 11.2 K present on admission. I was consulted because of abnormal imaging and mildly elevated LFTs. She had MRCP today. Findings: Extrahepatic biliary ductal dilatation up to 9 mm which may be normal if there is a history of cholecystectomy. [facility] Medical History Irritable bowel Scarlet fever Depression Hyperthyroidism DVT (deep venous thrombosis) CKD (chronic kidney disease), stage III Chronic anemia History of venous thromboembolism History of small bowel obstruction GERD (gastroesophageal reflux disease) HLD (hyperlipidemia) Anxiety and depression Hypothyroidism Home Medications ???Medication ???Instructions ???Recorded ???Last Taken ???Type alprazolam 1 mg tablet (Xanax) 1 mg PO BID anxiety 12/11/22 Unknown History bupropion HCl 150 mg 24 hr tablet, 150 mg PO BID mental health 12/11/22 Unknown History extended release esomeprazole magnesium 20 mg 20 mg PO DAILY reflux 12/11/22 Unknown History capsule,delayed release ezetimibe 10 mg tablet 10 mg PO DAILY cholesterol 12/11/22 Unknown History levothyroxine 50 mcg tablet 50 mcg PO DAILY thyroid 12/11/22 Unknown History zolpidem 10 mg tablet (Ambien) 10 mg PO QHS sleep 12/11/22 Unknown History docusate sodium 100 mg capsule 100 mg PO BID stool softner 03/31/23 Unknown History budesonide 160 mcg-glycopyr 9 2 inh inhalation BID breathing 12/06/23 Unknown History mcg-formot 4.8 mcg/actuation HFA inhaler (Breztri Aerosphere) buspirone 15 mg tablet 7.5 mg PO BID mental health 12/06/23 Unknown History polyethylene glycol 3350 17 17 g PO BID bowels 12/06/23 Unknown History gram/dose oral powder (Miralax) ropinirole 0.5 mg tablet 0.5 mg PO BID restless legs 12/06/23 Unknown History warfarin 5 mg tablet 5 mg PO DAILY blood thinner 12/06/23 Unknown History ondansetron HCl 4 mg tablet 4 mg PO Q6H PRN Nausea #10 tabs 12/13/23 Unknown Rx furosemide 20 mg tablet 20 mg PO DAILY 09/14/24 Unknown History tramadol 50 mg tablet 50 mg PO Q6H PRN PRN pain 09/14/24 Unknown History Allergy/AdvReac Type Severity Reaction Status Date / Time cefdinir (From Omnicef) Allergy Hives Verified 09/13/24 20:52 codeine Allergy NEEDS Verified 09/13/24 20:52 FOLLOW-UP latex Allergy Anaphylaxis Verified 09/13/24 20:52 prochlorperazine (From Allergy NEEDS Verified 09/13/24 20:52 Compazine) FOLLOW-UP shellfish derived Allergy Anaphylaxis Verified 09/13/24 20:52 levofloxacin (From Levaquin) AdvReac Vomiting Verified 09/13/24 20:52 Ualqvoz-SJM-FsF Reductase AdvReac NEEDS Verified 09/13/24 20:52 Inhibitor FOLLOW-UP Family History Mother Heart disease COPD (chronic obstructive pulmonary disease) Father Heart disease Hypertension CAD (coronary artery disease) Myocardial infarction Surgical History History of total abdominal hysterectomy History of colon surgery History of appendectomy History of cholecystectomy Social History household members: none Smoking Status: Never smoker alcohol intake: never substance use type: does not use Physical Exam Const oriented x3 and no apparent distress Resp normal respiratory effort GI GI Narrative: Nondistended, soft, nontender to palpation Lab / Micro Data 09/15/24 04:22 09/15/24 04:22 Labs: Laboratory Results - last 24 hr 09/15/24 04:22: WBC 10.1, RBC 3.35 L, Hgb 9.7 L, Hct 30.6 L, MCV 91.3, MCH 29.0, MCHC 31.7 L, RDW Std Deviation 43.8, RDW Coeff of [place] 13.2, Plt Count (more content not included)... Normal [facility] MRCP Abdomen without Contras ton 09-15-2024 MRCP Abdomen without Contrast [facility] Imaging Services [address] [place] [id number] MRCP Abdomen without Contrast MR#: [id number] Acct: [id number] Name: ADINA ESCOBAR Rep #: [id number] : 1950 F 74 From: Fred Magana MD PCP: Dr. Kentrell Dhaliwal MD Status: ADM IN Study: MRCP Abdomen without Contrast Date of Exam: Exam# [id number] Ordering Dr: Heriberto Bartholomew MD [id number] STUDY: MR CHOLANGIOPANCREATOGRAPHY (MRCP) REASON FOR EXAM: Female, 74 years old. Dilated IHBD, EHBD and Pancreatic duct -- Abd pain, elevated LFT TECHNIQUE: Standard MRCP technique was utilized. 3-D reconstructions were performed. COMPARISON: None. FINDINGS: Gall Bladder: Gall bladder is not visualized, which may reflect contraction or obstruction of the cystic duct. Cystic duct: Normal with no demonstrated fixed filling defect. Intrahepatic ducts: Normal visualized intrahepatic ducts with no demonstrated fixed filling defect, dilation or stricture. Common hepatic duct: Moderately dilated measuring 9 mm in diameter. Common bile duct: Mildly dilated. Pancreatic duct: Normal with no demonstrated fixed filling defect, dilation or stricture. MRI/MRCP Abdomen without Contrast IMPRESSION: Extrahepatic biliary ductal dilatation which may be normal if there is a history of cholecystectomy. Electronically Signed: Fred Magana MD at 17:56 EST , CC: Dr. Heriberto Bartholomew MD; Dr. Kentrell Dhaliwal MD [employer]uba Diving Instructor: Signed Normal [facility] Prothrombin Time w/INRon INR Coag (PPP) [Relative time] 1.1 {INR} Normal [facility] Comment on above: Performed By: #### L 273.6188 #### [facility] [address] [place], [place], [id number] PT Coag (PPP) [Time] 14.3 s Normal 11.7-14.9 [facility] Comment on above: Performed By: #### L 300.0580 #### [facility] [address] [place], [place], [address] CBC W/Diff, Automatedon 12- Absolute Lymph 3.53 X10 3/uL Normal 0.83-4.51 [facility] Comment on above: Performed By: #### L 500.2500 #### [facility] [address] [place], [address] Absolute Neut 9.3 X10 3/uL High 2.0-7.7 [facility] Comment on above: Performed By: #### L 500.2500 #### [facility] [address] [place], [address] Basophils/100 WBC (Bld) 0.5 % Normal 0-1 [facility] Comment on above: Performed By: #### L 500.2500 #### [facility] [address] [place], [address] Eosinophils/100 WBC (Bld) 3.0 % Normal 0-5 [facility] Comment on above: Performed By: #### L 500.2500 #### [facility] [address] [place], [address] Erythrocyte distribution width (RBC) [Ratio] 13.2 % Normal 11.6-14.6 [facility] Comment on above: Performed By: #### L 500.2500 #### [facility] [address] [place], [address] Hematocrit (Bld) [Volume fraction] 35.1 % Low 37-47 [facility] Comment on above: Performed By: #### L 500.2500 #### [facility] [address] [place], [address] Hemoglobin (Bld) [Mass/Vol] 11.1 g/dL Low 12.0-15.0 [facility] Comment on above: Performed By: #### L 500.2500 #### [facility] [address] [place], [address] IG% 0.700 Normal 0.0-0.9 [facility] Comment on above: Result Comment: IG% - Immature Granulocytes (promyelocytes, myelocytes and metamyelocytes) > 1% indicates that a LEFT SHIFT is Present. Performed By: #### L 500.2500 #### [facility] [address] [place], [address] Lymphocytes/100 WBC (Bld) 23.8 % Normal 19-41 [facility] Comment on above: Performed By: #### L 500.2500 #### [facility] [address] [place], [address] MCH (RBC) [Entitic mass] 29.4 pg Normal 27.0-32.0 [facility] Comment on above: Performed By: #### L 500.2500 #### [facility] [address] [place], [address] MCHC (RBC) [Mass/Vol] 31.6 g/dL Low 32-36 [facility] Comment on above: Performed By: #### L 500.2500 #### [facility] [address] [place], [address] MCV (RBC) [Entitic vol] 93.1 fL Normal 81-99 [facility] Comment on above: Performed By: #### L 500.2500 #### [facility] [address] [place], [address] Monocytes/100 WBC (Bld) 9.0 % Normal 0-10 [facility] Comment on above: Performed By: #### L 500.2500 #### [facility] [address] [place], [address] Neutrophils/100 WBC (Bld) 63.0 % Normal 47-70 [facility] Comment on above: Performed By: #### L 500.2500 #### [facility] [address] [place], [address] Nucleated RBC (Bld) [#/Vol] 0 10*3/uL Normal 0-5 [facility] Comment on above: Performed By: #### L 500.2500 #### [facility] [address] [place], [address] Platelet mean volume (Bld) [Entitic vol] 9.3 fL Normal 6.2-12.0 [facility] Comment on above: Performed By: #### L 500.2500 #### [facility] [address] [place], [address] Platelets (Bld) [#/Vol] 433 10*3/uL Normal 150-450 [facility] Comment on above: Performed By: #### L 500.2500 #### [facility] [address] [place], [address] RBC (Bld) [#/Vol] 3.77 10*6/uL Low 4.2-5.4 [facility] Comment on above: Performed By: #### L 500.2500 #### [facility] [address] [place], [address] RDW SD 45.1 fl High 35.1-43.9 [facility] Comment on above: Performed By: #### L 500.2500 #### [facility] [address] [place], [address] WBC (Bld) [#/Vol] 14.8 10*3/uL High 4.4-11.0 [facility] Comment on above: Performed By: #### L 500.2500 #### [facility] [address] [place], [address] CPK Total, Creatine Kinaseon 09-14-2024 CPK TOTAL 404 U/L High 26-192 [facility] Comment on above: Performed By: #### L 501.3620, L501.6710 ####[facility] [address] [place], [address] CRPon 09-14-2024 C-REACTIVE PROT < 2.90 Normal 0.0-3.0 [facility] Comment on above: Result Comment: C-Re active Protein (CRP) provides useful information for the diagnosis, therapy and monitoring of inflammatory processes and associated diseases. For the evaluation of Relative Risk for Cardiovascular Disease, a High Sensitivity CRP (HSCRP) should be ordered. Performed By: #### L 500.2500 #### [facility] [address] [place], [address] Comprehensive Metabolic Prof ilon 09-14-2024 Albumin [Mass/Vol] 3.1 g/dL Low 3.2-5.0 [facility] Comment on above: Performed By: #### L 500.2500 #### [facility] [address] [place], [address] Albumin/Globulin [Mass ratio] 0.8 {ratio} Low 0.9-2.4 [facility] Comment on above: Performed By: #### L 500.2500 #### [facility] [address] [place], [address] ALK P 138 U/L High 45-117 [facility] Comment on above: Performed By: #### L 500.2500 #### [facility] [address] [place], [address] ALT [Catalytic activity/Vol] 123 U/L High 13-56 [facility] Comment on above: Performed By: #### L 500.2500 #### [facility] [address] [place], [address] AST [Catalytic activity/Vol] 311 U/L High 15-37 [facility] Comment on above: Performed By: #### L 500.2500 #### [facility] [address] [place], [address] Bilirubin [Mass/Vol] 0.70 mg/dL Normal 0.20-1.00 [facility] Comment on above: Result Comment: For patients on eltrombopag therapy, use of Dimension [place] TBIL is not recommended. Performed By: #### L 500.2500 #### [facility] [address] [place], [address] BUN/CRE 16.3 RATIO Normal 10-20 [facility] Comment on above: Performed By: #### L 500.2500 #### [facility] [address] [place], [address] CA,Total 8.7 mg/dL Normal 8.5-10.1 [facility] Comment on above: Performed By: #### L 500.2500 #### [facility] [address] [place], [address] Chloride [Moles/Vol] 112 mmol/L High 98-107 [facility] Comment on above: Performed By: #### L 500.2500 #### [facility] [address] [place], [address] CO2 [Moles/Vol] 23.0 mmol/L Normal 21.0-32.0 [facility] Comment on above: Performed By: #### L 500.2500 #### [facility] [address] [place], [address] Creatinine [Mass/Vol] 1.04 mg/dL High 0.55-1.02 [facility] Comment on above: Result Comment: The validity of the calculated GFR GFRAA in patients over 70 years has not been determined. Clinical correlation is essential. Performed By: #### L 500.2500 #### [facility] [address] [place], [address] ECRCL 41.34 ml/min Normal [facility] Comment on above: Performed By: #### L 500.2500 #### [facility] [address] [place], [address] EST GFR - AA 67 mL/min Normal >60 [facility] Comment on above: Result Comment: Afri can [place] GFR Calc Performed By: #### L 500.2500 #### [facility] [address] [place], [address] GAP 4 Low 5-15 [facility] Comment on above: Performed By: #### L 500.2500 #### [facility] [address] [place], [address] GFR/1.73 sq M.predicted among non-blacks MDRD (S/P/Bld) [Vol rate/Area] 55 mL/min/{1.73_m2} Low >60 [facility] Comment on above: Result Comment: Non- GFR Calc Performed By: #### L 500.2500 #### [facility] [address] [place], [address] Globulin (S) [Mass/Vol] 3.8 g/dL Normal 2.2-4.2 [facility] Comment on above: Performed By: #### L 500.2500 #### [facility] [address] [place], [address] Glucose [Mass/Vol] 95 mg/dL Normal 74-106 [facility] Comment on above: Performed By: #### L 500.2500 #### [facility] [address] [place], [address] Potassium [Moles/Vol] 4.0 mmol/L Normal 3.5-5.1 [facility] Comment on above: Performed By: #### L 500.2500 #### [facility] [address] [place], [address] Sodium [Moles/Vol] 138 mmol/L Normal 136-145 [facility] Comment on above: Performed By: #### L 500.2500 #### [facility] [address] [place], [address] T PROT 6.9 g/dL Normal 6.4-8.2 [facility] Comment on above: Performed By: #### L 500.2500 #### [facility] [address] [place], [address] Urea nitrogen [Mass/Vol] 17 mg/dL Normal 7-18 [facility] Comment on above: Performed By: #### L 500.2500 #### [facility] [address] [place], [address] Consultation - Surgicalon Consultation - Surgical [facility] Medical Records Department [address] [place] [address] Consultation - Surgical 09/14/24 1243 MR#: [id number] Acct: [id number] Name: ADINA ESCOBAR Rep #: [id number] : 1950 74 From: Paulo Umanzor MD PCP: Dr. Kentrell Dhaliwal MD Status:ADM IN Location: ICU [id number] Assessment Plan Assessment/Plan (1) Intractable abdominal pain: PLAN: Patient is a 74-year-old female with history of extensive small bowel resection as well as a number of other prior abdominal surgeries and previous admissions for rule out obstruction versus ileus admissions who presents with complaints of progressive abdominal discomfort, nausea, and chills over the last couple days. Initial workup showed evidence of just a mild leukocytosis biliary dilatation, and possible small bowel ileus. As her labs were rechecked this morning her leukocytosis is more progressed and she exhibits transaminitis with an elevation of her alkaline phosphatase. Calculating her R factor (2.7) there is a mixed hepatocellular and cholestatic pattern of injury. Agree with medicines current plan to proceed with MRCP and involve Dr. Blanchard of gastroenterology for possible exam of the periampullary region via ERCP. Also agree with broad- spectrum empiric enteric coverage for now given the differential does include possible developing cholangitis. Both patient's history and exam for possible ileus are less impressive. I believe patient has some mild chronic dilatation of her small bowel given her's short gut status and her reports of ongoing flatus/her bowel gas pattern are reassuring. It is possible that she is dealing with a infection related to biliary stasis and secondarily experiencing some slowing of her GI tract. At this time I do not believe she warrants NG tube placement or even small bowel follow- through study. If she is cleared from doing any procedures later today we could even consider advancing her to a clear liquid diet to monitor for tolerance. Will continue to follow and trend her abdominal exams but if there is persistent concern for an ileus it may be reasonable to try to obtain a specimen for enteric pathogen processing as patient relates a history of numerous infected contacts. The above has been related to primary, Dr. Bartholomew. Paulo Umanzor MD General Surgery Endocrine Surgery Pager: [facility] [address] [place] [address], [facility], [address] [place] [address] Office: [phone] HPI Consult Data Date of Consult: 09/14/24 HPI Narrative Reason for Consultation: Abdominal pain and concern for ileus HPI Narrative: ADINA ESCOBAR, is a 74 F who presents to [facility] with complaints of several days of left-sided abdominal discomfort and associated nausea and chills. She declares the pain is different from pain she has grown accustomed to with chronic postoperative discomfort and is also distinct from the pain that she has experienced in the past with small bowel obstructions. She notes that it has been progressive in nature and seems colicky which she describes as a clenching. She denies any relationship to eating. It has not led to any vomiting but has caused her to have a poor appetite over the last couple days (prior to this she confirms that her nutrition has been better than it has in years). She denies any awareness of fevers. She denies any awareness of jaundice. She does remark that she has been itching more of late. She also confirms that she is continuing to pass flatus. She denies any new foods but does confirm sick contacts???some of which have displayed GI related symptoms. Patient shares that she was recently evaluated for extremity discomfort last month but underwent CT imaging of her abdomen and pelvis at that time for reasons unknown to her. She states that since that visit she developed significant swelling of her lower extremities and appreciated approximately 25 pound weight gain. She reports that she has lost now 13 of those 25 pounds through use of diuretics. She denies any evaluation with echocardiography. Beyond the above she shares that she has had some significant dental work required approximately a week and a half ago due to advanced abscesses requiring a number of teeth to be pulled and periprocedural use of antibiotics. Patient is known to me from 2 previous encounters???on 03/16/2023 and again on 12/07/2023. She confirms her history reported at that time that she has never undergone colon resection but that she was told she is now missing approximately 40% of her small intestine which was removed for small bowel obstruction. She is also status postcholecystectomy but estimates she underwent this procedure in 1979. She shares that she has a remote history of LFT elevation which she estimates occurred 17 to 18 years ago in respon (more content not included)... Normal [facility] H AND P Exam - Hospitaliston 09-14-2024 H&P Exam - Hospitalist [facility] Medical Records Department [address] [place] [address] H P Exam - Hospitalist 09/14/24 0348 MR#: [id number] Acct: [id number] Name: ADINA ESCOBAR Rep #: [id number] : 1950 74 From: Edmundo Peters DO PCP: Dr. Kentrell Dhaliwal MD Status:ADM IN Location: ICU [id number] [facility] - General General Date of Admission: 09/14/24 Date of Service: 09/14/24 Chief Complaint: Intractable Abdominal Pain. HPI Narrative ADINA ESCOBAR, is a 74 F with a past medical history of essential hypertension; furosemide, history of hyperthyroidism, hyperlipidemia; on ezetimibe with intolerance on statins, hypothyroidism; levothyroxine, history of DVT; on Coumadin, history of asthma, remote history of scarlet fever, RLS; on ropinirole, IBS, CKD; stage IIIa, chronic anemia, history of SBO, history of total abdominal hysterectomy, history of colon resection; with subsequent surgery for severe and extensive adhesions, history of appendectomy, history of cholecystectomy, depression with anxiety; on bupropion, buspirone and prn alprazolam BID, chronic insomnia; on zolpidem, GERD; on esomeprazole and OA; with chronic pain or prn tramadol q. 6 hours prn with patient followed chronically at the [facility] who presents to [facility] ER complaining of severe abdominal pain. Ms. Escobar reports her symptoms began approximately 10 days prior to admission with a gradual- onset of progressively worsening abdominal pain that was tender to palpation. She also admits to nausea and chills but denies vomiting. She states the pain is severe 10/10 and radiating into her back with an associated tension-type headache. She additionally admits to shortness of breath with a sensation of tightness in her chest that radiated into her abdomen for which she took an albuterol inhaler which actually seems to make her symptoms worse. In the ER she was noted to have CT evidence of dilated intra and extrahepatic bile ducts and pancreatic duct with radiologist recommending HIDA scan and/or MRCP with ileus and postop changes complicated by Leukocytosis of 11.2 K present on admission with uncontrolled hypertension of 179/96 mmHg present on admission with ER physician contacting general surgeon on-call who recommended patient undergo HIDA scan in a.m. with formal consultation pending in the a.m. with help appreciated in advance. She was then admitted to the PCU for ongoing care for stay that is expected to extend beyond 2 midnights. [facility] Medical History (Updated 09/14/24 @ 04:[address] Edmundo Peters, DO) Irritable bowel Scarlet fever Depression Hyperthyroidism DVT (deep venous thrombosis) CKD (chronic kidney disease), stage III Chronic anemia History of venous thromboembolism History of small bowel obstruction GERD (gastroesophageal reflux disease) HLD (hyperlipidemia) Anxiety and depression Hypothyroidism Home Medications ???Medication ???Instructions ???Recorded ???Last Taken ???Type alprazolam 1 mg tablet (Xanax) 1 mg PO BID anxiety 12/11/22 Unknown History bupropion HCl 150 mg 24 hr tablet, 150 mg PO BID mental health 12/11/22 Unknown History extended release esomeprazole magnesium 20 mg 20 mg PO DAILY reflux 12/11/22 Unknown History capsule,delayed release ezetimibe 10 mg tablet 10 mg PO DAILY cholesterol 12/11/22 Unknown History levothyroxine 50 mcg tablet 50 mcg PO DAILY thyroid 12/11/22 Unknown History zolpidem 10 mg tablet (Ambien) 10 mg PO QHS sleep 12/11/22 Unknown History docusate sodium 100 mg capsule 100 mg PO BID stool softner 03/31/23 Unknown History budesonide 160 mcg-glycopyr 9 2 inh inhalation BID breathing 12/06/23 Unknown History mcg-formot 4.8 mcg/actuation HFA inhaler (Breztri Aerosphere) buspirone 15 mg tablet 7.5 mg PO BID mental health 12/06/23 Unknown History polyethylene glycol 3350 17 17 g PO BID bowels 12/06/23 Unknown History gram/dose oral powder (Miralax) ropinirole 0.5 mg tablet 0.5 mg PO BID restless legs 12/06/23 Unknown History warfarin 5 mg tablet 5 mg PO DAILY blood thinner 12/06/23 Unknown History ondansetron HCl 4 mg tablet 4 mg PO Q6H PRN Nausea #10 tabs 12/13/23 Unknown Rx furosemide 20 mg tablet 20 mg PO DAILY 09/14/24 Unknown History tramadol 50 mg tablet 50 mg PO Q6H PRN PRN pain 09/14/24 Unknown History Allergy/AdvReac Type Severity Reaction Status Date / Time cefdinir (From Omnicef) Allergy Hives Verified 09/13/24 20:52 codeine Allergy NEEDS Verified 09/13/24 20:52 FOLLOW-UP latex Allergy Anaphylaxis Verified 09/13/24 20:52 prochlorperazine (From Allergy NEEDS Verified 09/13/24 20:52 Compazine) FOLLOW-UP shellfish derived Allergy Anaphylaxis Verified 09/13/24 20:52 levofloxacin (From Levaquin) AdvReac Vomiting Verified 09/13/24 20:52 Hwtwoec-LXV-HgR Reductase AdvReac NEEDS Verifi (more content not included)... Normal [facility] L501.4020on 09-14-2024 TROPONIN-I HS 7 pg/mL Normal 3.0-54.0 [facility] Comment on above: Result Comment: Plea se Note: New Test Units and Gender Specific Reference Ranges. For more information see Policy Stat Procedure [place] High Sensitivity Troponin (TNIH) and attachments. Performed By: #### L 501.4020 #### [facility] [address] [place], [place], [address] Lactic Acidon 09-14-2024 Lactate [Moles/Vol] 1.0 mmol/L Normal 0.4-1.9 [facility] Comment on above: Order Comment: Y Performed By: #### L 500.2500 #### [facility] [address] [place], [place], [address] Lipaseon 09-14-2024 Lipase [Catalytic activity/Vol] 34 U/L Normal 13-75 [facility] Comment on above: Result Comment: Michael arreola note: LIPASE revised reference range effective 22. New Lipase methodology. Expected to produce lower values than the previous assay method. NEW Reference Range: 13 - 75 U/L Performed By: #### L 300.3900 #### [facility] [address] [place], [address] Lipase [Catalytic activity/Vol] 32 U/L Normal 13-75 [facility] Comment on above: Result Comment: Michael arreola note: LIPASE revised reference range effective 22. New Lipase methodology. Expected to produce lower values than the previous assay method. NEW Reference Range: 13 - 75 U/L Performed By: #### L 500.2500 #### [facility] [address] [place], [address] Lipid Profileon 09-14-2024 Cholesterol [Mass/Vol] 207 mg/dL High 200 [facility] Comment on above: Result Comment: <200 mg/dL Desirable 200-240 mg/dL Borderline >240 mg/dL High Risk Performed By: #### L 300.3900 #### [facility] [address] [place] [address] Cholesterol in HDL [Mass/Vol] 60 mg/dL Normal [facility] Comment on above: Result Comment: The drugs N-Acetylcysteine and Metamizole may falsely depress this assay. Reference Range HDL <40 mg/dL Low HDL Cholesterol HDL >or= 60 mg/dL High HDL Cholesterol Performed By: #### L 300.3900 #### [facility] [address] [place], [address] Cholesterol in LDL [Mass/Vol] 132 mg/dL High 0-130 [facility] Comment on above: Performed By: #### L 300.3900 #### [facility] [address] [place], [address] Cholesterol in VLDL [Mass/Vol] 15 mg/dL Normal 5-40 [facility] Comment on above: Performed By: #### L 300.3900 #### [facility] [address] [place], [address] Triglyceride [Mass/Vol] 76 mg/dL Normal [facility] Comment on above: Result Comment: The drugs N-Acetylcysteine and Metamizole may falsely depress this assay. Serum Triglycerides Reference Interval Normal <150 mg/dL Borderline high 150 - 199 mg/dL High 200 - 499 mg/dL Very High > or = 500 mg/dL Performed By: #### L 300.3900 #### [facility] [address] [place], [address] Liver Profileon 09-14-2024 Albumin [Mass/Vol] 2.9 g/dL Low 3.2-5.0 [facility] Comment on above: Performed By: #### L 500.2500 #### [facility] [address] [place], [address] ALK P 87 U/L Normal 45-117 [facility] Comment on above: Performed By: #### L 500.2500 #### [facility] [address] [place], [address] ALT [Catalytic activity/Vol] 23 U/L Normal 13-56 [facility] Comment on above: Performed By: #### L 500.2500 #### [facility] [address] [place], [address] AST [Catalytic activity/Vol] 28 U/L Normal 15-37 [facility] Comment on above: Performed By: #### L 500.2500 #### [facility] [address] [place], [address] Bilirubin [Mass/Vol] 0.50 mg/dL Normal 0.20-1.00 [facility] Comment on above: Result Comment: For patients on eltrombopag therapy, use of Dimension [place] TBIL is not recommended. Performed By: #### L 500.2500 #### [facility] [address] [place], [address] Bilirubin.direct [Mass/Vol] 0.11 mg/dL Normal 0.00-0.30 [facility] Comment on above: Performed By: #### L 500.2500 #### [facility] [address] [place], [address] Globulin (S) [Mass/Vol] 3.6 g/dL Normal 2.2-4.2 [facility] Comment on above: Performed By: #### L 500.2500 #### [facility] [address] [place], [address] T PROT 6.5 g/dL Normal 6.4-8.2 [facility] Comment on above: Performed By: #### L 500.2500 #### [facility] [address] [place], [address] Magnesiumon 09-14-2024 Magnesium [Mass/Vol] 2.2 mg/dL Normal 1.6-2.6 [facility] Comment on above: Performed By: #### L 500.2500 #### [facility] [address] [place], [address] Phosphoruson 09-14-2024 Phosphate [Mass/Vol] 3.3 mg/dL Normal 2.5-4.9 [facility] Comment on above: Performed By: #### L 500.2500 #### [facility] [address] [place], [address] T4 Free Directon 09-14-2024 T4 FREE DIRECT 1.47 ng/dL High 0.76-1.46 [facility] Comment on above: Performed By: #### L 300.3900 #### [facility] [address] [place], [address] Thyroid Stim Hormone (TSH)on 09-14-2024 TSH 14.000 uIU/mL High 0.358-3.740 [facility] Comment on above: Performed By: #### L 501.4020 #### [facility] [address] [place], [address] Urinalysis, Completeon 09-14 BACTERIA RARE Normal None Seen [facility] Comment on above: Order Comment: CLEAN CATCH Performed By: #### L 400.0001 #### [facility] [address] [place], [address] EPI,SQUAMOUS 0-5 SEEN Normal 5-10 [facility] Comment on above: Order Comment: CLEAN CATCH Performed By: #### L 400.0001 #### [facility] [address] [place], [address] EPI,TRANSITION 0-5 SEEN Normal 0-5 [facility] Comment on above: Order Comment: CLEAN CATCH Performed By: #### L 400.0001 #### [facility] [address] [place], [address] RBC 0-5 SEEN Normal 0-5 [facility] Comment on above: Order Comment: CLEAN CATCH Performed By: #### L 400.0001 #### [facility] [address] [place], [address] WBC 0-5 SEEN Normal 0-5 [facility] Comment on above: Order Comment: CLEAN CATCH Performed By: #### L 400.0001 #### [facility] [address] [place], [address] 12 Lead EKGon 09-13-2024 12 Lead EKG [facility] Cardiovascular Services [address] [place] [address] 12 Lead EKG 09/13/242054 MR#: [id number] Acct: [id number] Name: BRIEADINA Rep #: [id number] : 1950 74 From: Heron Jane MD Attending Dr: Dr. Heriberto Bartholmoew MD Status: ADM IN Ordering Dr: Mike Fraser DO Date: 09/13/24 Location: ICU Sex: F C Admitted: 09/14/24 Test Reason : CP Blood Pressure : */* mmHG Vent. Rate : 86 BPM Atrial Rate : 86 BPM P-R Int : 150 ms QRS Dur : 68 ms QT Int : 382 ms P-R-T Axes : 67 21 57 degrees QTcB Int : 457 ms Normal sinus rhythm Possible Left atrial enlargement Borderline ECG Confirmed by KARISSA KAPADIA, HERON ([id number]), food editor AMADOR CAMPOS ([id number]) on 09/15/2024 8:41:40 AM Referred By: ES Confirmed By: HERON JANE MD 09/15/24 0841 Date Heron Jane MD CC: Dr. Mike Fraser DO; Dr. Heriberto Bartholomew MD; Dr. Kentrell Dhaliwal MD Signed Normal [facility] Basic Metabolic Profile (BMP )on 09-13-2024 BUN/CRE 15.5 RATIO Normal 10-20 [facility] Comment on above: Order Comment: 1Y Performed By: #### L 500.2500 #### [facility] [address] [place], [address] CA,Total 9.4 mg/dL Normal 8.5-10.1 [facility] Comment on above: Order Comment: 1Y Performed By: #### L 500.2500 #### [facility] [address] [place], [address] Chloride [Moles/Vol] 106 mmol/L Normal 98-107 [facility] Comment on above: Order Comment: 1Y Performed By: #### L 500.2500 #### [facility] [address] [place], [address] CO2 [Moles/Vol] 23.0 mmol/L Normal 21.0-32.0 [facility] Comment on above: Order Comment: 1Y Performed By: #### L 500.2500 #### [facility] [address] [place], [address] Creatinine [Mass/Vol] 1.16 mg/dL High 0.55-1.02 [facility] Comment on above: Order Comment: 1Y Result Comment: The validity of the calculated GFR GFRAA in patients over 70 years has not been determined. Clinical correlation is essential. Performed By: #### L 500.2500 #### [facility] [address] [place], [address] ECRCL 36.88 ml/min Normal [facility] Comment on above: Order Comment: 1Y Performed By: #### L 500.2500 #### [facility] [address] [place], [address] EST GFR - AA 59 mL/min Low >60 [facility] Comment on above: Order Comment: 1Y Result Comment: Afri can [place]i GFR Calc Performed By: #### L 500.2500 #### [facility] [address] [place], [address] GAP 9 Normal 5-15 [facility] Comment on above: Order Comment: 1Y Performed By: #### L 500.2500 #### [facility] [address] [place], [address] GFR/1.73 sq M.predicted among non-blacks MDRD (S/P/Bld) [Vol rate/Area] 49 mL/min/{1.73_m2} Low >60 [facility] Comment on above: Order Comment: 1Y Result Comment: Non- GFR Calc Performed By: #### L 500.2500 #### [facility] [address] [place], [address] Glucose [Mass/Vol] 105 mg/dL Normal 74-106 [facility] Comment on above: Order Comment: 1Y Result Comment: Fast ing Glucose result from 100 to 125 mg/dL suggests IMPAIRED HOMEOSTASIS per A.D.A. criteria. Performed By: #### L 500.2500 #### [facility] [address] [place], [address] Potassium [Moles/Vol] 4.3 mmol/L Normal 3.5-5.1 [facility] Comment on above: Order Comment: 1Y Performed By: #### L 500.2500 #### [facility] [address] [place], [address] Sodium [Moles/Vol] 138 mmol/L Normal 136-145 [facility] Comment on above: Order Comment: 1Y Performed By: #### L 500.2500 #### [facility] [address] [place], [address] Urea nitrogen [Mass/Vol] 18 mg/dL Normal 7-18 [facility] Comment on above: Order Comment: 1Y Performed By: #### L 500.2500 #### [facility] [address] [place], [address] CBC W/Diff, Automatedon 12-2 Absolute Lymph 3.02 X10 3/uL Normal 0.83-4.51 [facility] Comment on above: Performed By: #### L 500.2500 #### [facility] [address] [place], [address] Absolute Neut 7.2 X10 3/uL Normal 2.0-7.7 [facility] Comment on above: Performed By: #### L 500.2500 #### [facility] [address] [place], [address] Basophils/100 WBC (Bld) 0.9 % Normal 0-1 [facility] Comment on above: Performed By: #### L 500.2500 #### [facility] [address] [place], [address] Eosinophils/100 WBC (Bld) 2.0 % Normal 0-5 [facility] Comment on above: Performed By: #### L 500.2500 #### [facility] [address] [place], [address] Erythrocyte distribution width (RBC) [Ratio] 13.0 % Normal 11.6-14.6 [facility] Comment on above: Performed By: #### L 500.2500 #### [facility] [address] [place], [address] Hematocrit (Bld) [Volume fraction] 38.2 % Normal 37-47 [facility] Comment on above: Performed By: #### L 500.2500 #### [facility] [address] [place], [address] Hemoglobin (Bld) [Mass/Vol] 12.6 g/dL Normal 12.0-15.0 [facility] Comment on above: Performed By: #### L 500.2500 #### [facility] [place], [address] IG% 0.600 Normal 0.0-0.9 [facility] Comment on above: Result Comment: IG% - Immature Granulocytes (promyelocytes, myelocytes and metamyelocytes) > 1% indicates that a LEFT SHIFT is Present. Performed By: #### L 500.2500 #### [facility] [address] [place], [address] Lymphocytes/100 WBC (Bld) 26.9 % Normal 19-41 [facility] Comment on above: Performed By: #### L 500.2500 #### [facility] [address] [place], [address] MCH (RBC) [Entitic mass] 30.2 pg Normal 27.0-32.0 [facility] Comment on above: Performed By: #### L 500.2500 #### [facility] [address] [place], [address] MCHC (RBC) [Mass/Vol] 33.0 g/dL Normal 32-36 [facility] Comment on above: Performed By: #### L 500.2500 #### [facility] [address] [place], [address] MCV (RBC) [Entitic vol] 91.6 fL Normal 81-99 [facility] Comment on above: Performed By: #### L 500.2500 #### [facility] [address] [place], [address] Monocytes/100 WBC (Bld) 5.6 % Normal 0-10 [facility] Comment on above: Performed By: #### L 500.2500 #### [facility] [address] [place], [address] Neutrophils/100 WBC (Bld) 64.0 % Normal 47-70 [facility] Comment on above: Performed By: #### L 500.2500 #### [facility] [address] [place], [address] Nucleated RBC (Bld) [#/Vol] 0 10*3/uL Normal 0-5 [facility] Comment on above: Performed By: #### L 500.2500 #### [facility] [address] [place], [address] Platelet mean volume (Bld) [Entitic vol] 9.3 fL Normal 6.2-12.0 [facility] [facility] Comment on above: Performed By: #### L 500.2500 #### [facility] [address] [place], [address] Platelets (Bld) [#/Vol] 498 10*3/uL High 150-450 [facility] Comment on above: Performed By: #### L 500.2500 #### [facility] [address] [place], [address] RBC (Bld) [#/Vol] 4.17 10*6/uL Low 4.2-5.4 [facility] Comment on above: Performed By: #### L 500.2500 #### [facility] [address] [place], [address] RDW SD 43.3 fl Normal 35.1-43.9 [facility] Comment on above: Performed By: #### L 500.2500 #### [facility] [address] [place], [address] WBC (Bld) [#/Vol] 11.2 10*3/uL High 4.4-11.0 [facility] Comment on above: Performed By: #### L 500.2500 #### [facility] [address] [place], [address] CTA Chst, Abd, Pel W and/or WOon 09-13-2024 CTA Chst, Abd, Pel W and/or WO [facility] Imaging Services [address] [place], [place] [address] CTA Chst, Abd, Pel W and/or WO MR#: [id number] Acct: [id number] Name: ADINA ESCOBAR Rep #: [id number] : 1950 F 74 From: Halina Escoto PCP: Dr. Kentrell Dhaliwal MD Status: [facility] ER Study: CTA Chst, Abd, Pel W and/or WO Date of Exam: 11/14/23 Exam# [id number] Ordering Dr: Mike Fraser DO [id number] INDICATION: Chest pain, abdominal pain EXAMINATION: CTA CHEST, ABDOMEN AND PELVIS WITH CONTRAST - TECHNIQUE: A CTA of the chest, abdomen, and pelvis is obtained with sagittal and coronal reconstructed MIP views. Three-dimensional surface rendered sequence of the thoracic and abdominal aorta was obtained. A radiation dose optimization technique was used for this scan. The protocol utilizes one or more of the following dose reduction techniques: automated exposure control, adjustment of mA and/or kV according to patient size,and/or use of iterative reconstruction technique. 100 mL of Isovue-370. Oral contrast: None. COMPARISON: August 01, 2024 CT abdomen and pelvis FINDINGS: CT CHEST: THORACIC AORTA: No atheromatous disease, no aneurysmal changes or dissection. ABDOMINAL AORTA: No aneurysm or dissection. No significant atheromatous disease. The iliac arteries are unremarkable. LUNGS: The lungs are well-expanded without acute or chronic changes. No effusions or pneumothorax. MEDIASTINUM: The thyroid gland is normal. No mediastinal or hilar adenopathy. HEART: Heart is normal size. No pericardial effusion. No CAD. CT ABDOMEN AND PELVIS: LIVER: The liver enhances homogeneously. No masses identified. GALLBLADDER: Gallbladder is not identified. Intra and extrahepatic bile ducts appear prominent. SPLEEN: Normal. PANCREAS: No masses or inflammation. Prominent pancreatic duct measures up to 4 mm. ADRENAL GLANDS: Normal. KIDNEYS AND URETERS: The kidneys both enhance appropriately. There are normal size and shape. No hydronephrosis or nephrolithiasis. Simple 12 mm right renal cortical cyst. No further follow-up required as appears simple/benign. STOMACH: Normal. SMALL BOWEL: Dilated small bowel with air-fluid levels and midsegment anastomotic sutures. MESENTERY: No mesenteric inflammation. No ascites. COLON: No significant diverticulosis, masses or inflammation. Air-fluid levels consistent with nonspecific diarrheal disease. The colon otherwise is normal. There is a large fatty ileocecal valve. APPENDIX: Not identified. IVC: Normal. RETROPERITONEUM: No retroperitoneal lymphadenopathy. PELVIC STRUCTURES: Normal bladder. SOFT TISSUES ABDOMEN: Fat-containing umbilical hernia. SOFT TISSUE CHEST: The extrathoracic soft tissues are normal. BONES: Mild kyphoscoliosis. CT/CTA Chst, Abd, Pel W and/or WO IMPRESSION: Dilated intra and extrahepatic bile ducts and pancreatic duct. Recommend HIDA scan and/or MRCP. Ileus and postop changes as above. Normal contrast-enhanced CT of the chest. Normal contrast-enhanced CT of the abdomen and pelvis. Electronically Signed: Halina Park MD at 22:54 EST Reading Location ID and State: [facility] / [place] Tel , Service support , CC: Dr. Mike Fraser DO; Dr. 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 Kentrell Dhaliwal MD Status:ADM IN Location: ICU [id number] HPI History of Present Illness Chief Complaint: Abd Pain Informant: patient Onset/Context/Timing Onset: Days (10) Context: Gradual Onset Timing: Continuous Quality: Tightness Location: Chest and abdomen Worsened by: Albuterol inhaler Relieved by: Nothing Narrative Narrative: Patient presents with abdominal pain that has been getting worse over the past 10 days. Patient states that today she also try having some pain in her chest and shortness of breath. Patient describes her pain as a tightness. Patient states she took her albuterol inhaler while she was at home earlier today and her breathing became worse after this. Patient admits to some subjective chills. Patient admits to some nausea but denies any vomiting. Patient admits to some urinary frequency. Patient states her pain radiates into her back. Patient also admits to a headache. [facility] Medical History (Updated 09/14/24 @ 04:[address] Edmundo Peters DO) Irritable bowel Scarlet fever Depression Hyperthyroidism DVT (deep venous thrombosis) CKD (chronic kidney disease), stage III Chronic anemia History of venous thromboembolism History of small bowel obstruction GERD (gastroesophageal reflux disease) HLD (hyperlipidemia) Anxiety and depression Hypothyroidism Home Medications ???Medication ???Instructions ???Recorded ???Last Taken ???Type alprazolam 1 mg tablet (Xanax) 1 mg PO BID anxiety 12/11/22 Unknown History bupropion HCl 150 mg 24 hr tablet, 150 mg PO BID mental health 12/11/22 Unknown History extended release esomeprazole magnesium 20 mg 20 mg PO DAILY reflux 12/11/22 Unknown History capsule,delayed release ezetimibe 10 mg tablet 10 mg PO DAILY cholesterol 12/11/22 Unknown History levothyroxine 50 mcg tablet 50 mcg PO DAILY thyroid 12/11/22 Unknown History zolpidem 10 mg tablet (Ambien) 10 mg PO QHS sleep 12/11/22 Unknown History docusate sodium 100 mg capsule 100 mg PO BID stool softner 03/31/23 Unknown History budesonide 160 mcg-glycopyr 9 2 inh inhalation BID breathing 12/06/23 Unknown History mcg-formot 4.8 mcg/actuation HFA inhaler (Breztri Aerosphere) buspirone 15 mg tablet 7.5 mg PO BID mental health 12/06/23 Unknown History polyethylene glycol 3350 17 17 g PO BID bowels 12/06/23 Unknown History gram/dose oral powder (Miralax) ropinirole 0.5 mg tablet 0.5 mg PO BID restless legs 12/06/23 Unknown History warfarin 5 mg tablet 5 mg PO DAILY blood thinner 12/06/23 Unknown History ondansetron HCl 4 mg tablet 4 mg PO Q6H PRN Nausea #10 tabs 12/13/23 Unknown Rx furosemide 20 mg tablet 20 mg PO DAILY 09/14/24 Unknown History tramadol 50 mg tablet 50 mg PO Q6H PRN PRN pain 09/14/24 Unknown History Allergy/AdvReac Type Severity Reaction Status Date / Time cefdinir (From Omnicef) Allergy Hives Verified 09/13/24 20:52 codeine Allergy NEEDS Verified 09/13/24 20:52 FOLLOW-UP latex Allergy Anaphylaxis Verified 09/13/24 20:52 prochlorperazine (From Allergy NEEDS Verified 09/13/24 20:52 Compazine) FOLLOW-UP shellfish derived Allergy Anaphylaxis Verified 09/13/24 20:52 levofloxacin (From Levaquin) AdvReac Vomiting Verified 09/13/24 20:52 Opedoaf-YEE-YsH Reductase AdvReac NEEDS Verified 09/13/24 20:52 Inhibitor FOLLOW-UP Family History Mother Heart disease COPD (chronic obstructive pulmonary disease) Father Heart disease Hypertension CAD (coronary artery disease) Myocardial infarction Surgical History History of total abdominal hysterectomy History of colon surgery History of appendectomy History of cholecystectomy Social History household members: none Smoking Status: Never smoker alcohol intake: never substance use type: does not use ROS ROS ED Constitutional Constitutional ED: Reports chills and subjective; Denies fever(s) Eyes Eyes: Denies blurry vision or change in vision ENT ENT ED: Denies rhinorrhea or sore throat Cardiovascular Cardiovascular: Reports chest pain; Denies palpitations Respiratory/Chest Respiratory/Chest: Reports dyspnea; Denies cough Gastrointestinal Gastrointestinal: Reports abdominal pain and nausea; Denies vomiting Genitourinary Genitourinary ED: Reports urinary frequency; Denies dysuria or hematuria Musculoskeletal Musculoskeletal: Reports back pain; Denies neck pain Integumentary Denies ab (more content not included)... Normal [facility] L501.5425on 09-13-2024 TROPONIN-I HS 8 pg/mL Normal 3.0-54.0 [facility] Comment on above: Order Comment: 1Y Result Comment: Michael arreola Note: New Test Units and Gender Specific Reference Ranges. For more information see Policy Stat Procedure [place] High Sensitivity Troponin (TNIH) and attachments. Performed By: #### L 390.2454 #### [facility] [address] [place], [address] Prothrombin Time w/INRon INR Coag (PPP) [Relative time] 1.0 {INR} Normal [facility] Comment on above: Performed By: #### L 658.9872 #### [facility] [address] [place], [place], [address] PT Coag (PPP) [Time] 13.6 s Normal 11.7-14.9 [facility] Comment on above: Performed By: #### L 752.3976 #### [facility] [address] [place], [place], [address] Urinalysis, Completeon 09-13 Mucus Ql (Urine sed) 0 SEEN Normal [facility] Comment on above: Order Comment: CLEAN CATCH Performed By: #### L 400.0001 #### [facility] [address] [place], [address] UR Preservative No Preservative Normal [facility] Comment on above: Order Comment: CLEAN CATCH Result Comment: ANAL YZER ERROR Performed By: #### L 400.0001 #### [facility] [address] [place], [address] BILIRUBIN URINE Negative Normal Negative [facility] Comment on above: Order Comment: CLEAN CATCH Result Comment: ANAL YZER ERROR Performed By: #### L 400.0001 #### [facility] [address] [place], [address] Clarity (U) Sl. Cloudy Normal Clear [facility] Comment on above: Order Comment: CLEAN CATCH Result Comment: ANAL YZER ERROR Performed By: #### L 400.0001 #### [facility] [address] [place], [address] Color (U) Yellow Normal Yellow [facility] Comment on above: Order Comment: CLEAN CATCH Result Comment: ANAL YZER ERROR Performed By: #### L 400.0001 #### [facility] [address] [place], [address] GLUCOSE, UR Normal Normal Normal [facility] Comment on above: Order Comment: CLEAN CATCH Result Comment: ANAL YZER ERROR Performed By: #### L 400.0001 #### [facility] [address] [place], [address] KETONE UR Negative Normal Negative [facility] Comment on above: Order Comment: CLEAN CATCH Result Comment: ANAL YZER ERROR Performed By: #### L 400.0001 #### [facility] [address] [place], [address] LEUK ESTERASE 500 /ul Abnormal Negative [facility] Comment on above: Order Comment: CLEAN CATCH Result Comment: ANAL YZER ERROR Performed By: #### L 400.0001 #### [facility] [address] [place], [address] Nitrite Ql (U) Negative Normal Negative [facility] Comment on above: Order Comment: CLEAN CATCH Result Comment: ANAL YZER ERROR Performed By: #### L 400.0001 #### [facility] [address] [place], [address] OCCULT BLOOD-UR 10 /ul Abnormal Negative [facility] Comment on above: Order Comment: CLEAN CATCH Result Comment: ANAL YZER ERROR Performed By: #### L 400.0001 #### [facility] [address] [place], [address] pH UR 7.0 Normal 5.0 - 8.0 [facility] Comment on above: Order Comment: CLEAN CATCH Result Comment: ANAL YZER ERROR Performed By: #### L 400.0001 #### [facility] [address] [place], [address] PROT DIPSTX Negative Normal Negative [facility] Comment on above: Order Comment: CLEAN CATCH Result Comment: ANAL YZER ERROR Performed By: #### L 400.0001 #### [facility] [address] [place], [address] SP.GR. DIPSTX 1.010 Normal 1.002-1.030 [facility] Comment on above: Order Comment: CLEAN CATCH Result Comment: ANAL YZER ERROR Performed By: #### L 400.0001 #### [facility] [address] [place], [address] UROBILI Normal Normal Normal [facility] Comment on above: Order Comment: CLEAN CATCH Result Comment: ANAL YZER ERROR Performed By: #### L 400.0001 #### [facility] [address] [place], [address] BACTERIA 0 SEEN Normal None Seen [facility] Comment on above: Order Comment: CLEAN CATCH Result Comment: ANAL YZER ERROR Performed By: #### L 400.0001 #### [facility] [address] [place], [address] EPI,SQUAMOUS 0 SEEN Normal 5-10 [facility] Comment on above: Order Comment: CLEAN CATCH Result Comment: ANAL YZER ERROR Performed By: #### L 400.0001 #### [facility] [address] [place], [address] Mucus Ql (Urine sed) 0 SEEN Normal [facility] Comment on above: Order Comment: CLEAN CATCH Result Comment: ANAL YZER ERROR Performed By: #### L 400.0001 #### [facility] [address] [place], [address] RBC 0 SEEN Normal 0-5 [facility] Comment on above: Order Comment: CLEAN CATCH Result Comment: ANAL YZER ERROR Performed By: #### L 400.0001 #### [facility] [address] [place], [address] WBC 0 SEEN Normal 0-5 [facility] Comment on above: Order Comment: CLEAN CATCH Result Comment: ANAL YZER ERROR Performed By: #### L 400.0001 #### [facility] [address] [place], [address] [facility] AD[facility] ESCOBAR I ([id number]) 1950 F Date Time Provider Department 09/11/24 KENTRELL DHALIWAL II UPDV During your visit today, we recorded the following information about you: Estelita Lomeli 09/11/2024 3:28 PM Signed Patient calls She said her left ear is painful. No seeping. No fever. Started today. She asked if something can be sent in. Thank you. [phone] Kentrell Dhaliwal II, MD 09/12/2024 6:03 PM [...] GI Upset PROPOXYPHENE 06/23/2015 16 - Unknown DPKPETE-OML-REK REDUCTASE INHIBIT*06/22/2020 6 - Diarrhea 5 - Intolerance SULFA (SULFONAMIDE ANTIBIOTICS) 06/15/2020 14 - Other: See Comments Comments: Leg pain SHELLFISH CONTAINING PRODUCTS 11/29/2012 7 - Swelling Date Reviewed: 09/03/2024 Reviewed by: Yolanda Mitchell MA - Fully Assessed Reason for Visit: [...] by mouth two times a day. - clotrimazole-betamethasone (LOTRISONE) cream Apply to affected area two times a day. - diphenoxylate-atropine (LOMOTIL) 2.5-0.025 mg per tablet Take 1 tablet by mouth four times a day as needed for up to 10 days. - ondansetron orally disintegrating (ZOFRAN ODT) 4 mg disintegrating tablet Take 1 tablet by mouth every 8 hours as needed for nausea/vomiting. - sqvocbmpva-rfosqgls-xsgijg itzel (BREZTRI AEROSPHERE) 160-9-4.8 mcg/actuation HFA aerosol inhaler [...] Small bowel obst (more content not included)... [facility] 09-03-2024 [facility] Office Visit (FPUPDV ) -- ADINA ESCOBAR I ([id number]) 1950 F Date Time Provider Department 09/03/24 4:00 PM KENTRELL DHALIWAL II FPUPDV During your visit today, we recorded the following information about you: Pulse Blood pressure Weight Height 83/minute 150/80 69.9 kg 1.549 m Kentrell Dhaliwal II, MD 09/21/2024 3:43 PM Signed Kentrell Dhaliwal II, MD [address], [place] [address] SUBJECTIVE Adina Escobar is a 74 year old female [...] [Cefdinir] Diarrhea Prednisone GI Upset Propoxyphene Unknown Gqhoftr-Zae-Ros Red* Diarrhea, Intolerance Sulfa (Sulfonamide * Other: [...] tablet by mouth (more content not included)... [facility] 08-28-2024 [facility] Telephone (FPUPDV) -- ADINA ESCOBAR I ([id number]) 1950 F Date Time Provider Department 08/28/24 KENTRELL DHALIWAL II FPUPDV During your visit today, we recorded the following information about you: Mari Platt 08/28/2024 1:05 PM Signed Patient calls today. Reason for Call: Adina called requesting a refill on alprazolam. She uses [facility] in [place] [phone] (home) [phone] (cell) Patient last appointment: 08/19/2024 Mari Georgecynthiajohn Allergies As of Date: 08/28/2024 Noted Allergy Reaction LATEX 06/22/2020 10 - Anaphylaxis ABILIFY (ARIPIPRAZOLE) 04/19/2022 14 - Other: See Comments Comments: Muscles couldn't get up CODEINE 06/22/2020 6 - Diarrhea COMPAZINE (PROCHLORPERAZINE) 06/22/2020 17 - Myalgia LEVAQUIN (LEVOFLOXACIN) 06/22/2020 6 - Diarrhea OMNICEF (CEFDINIR) 06/22/2020 6 - Diarrhea PREDNISONE 08/30/2021 8 - GI Upset PROPOXYPHENE 06/23/2015 16 - Unknown PMCTJIS-OEP-ZZA REDUCTASE INHIBIT*06/22/2020 6 - Diarrhea 5 - [...] by mouth two times a day. - clotrimazole-betamethasone (LOTRISONE) cream Apply to affected [...] 8 hours as needed for nausea/vomiting. - swdvyodwec-gklcsblu-mpzziy itzel (BREZTRI AEROSPHERE) 160-9-4.8 mcg/actuation HFA aerosol inhaler [...] obstruction) (HCC) [K56. (more content not included)... [facility] 08-19-2024 [facility] Telephone (FPUPDV) -- CHINO ESCOBARA Franny ([id number]) 1950 F Date Time Provider Department 08/19/24 KENTRELL DHALIWAL II FPUPDV During your visit today, we recorded the following information about you: Patience Choi 08/19/2024 1:33 PM Addendum [facility] CALLED TO MENTION THAT PATIENT IS WISHING TO BE SCHEDULED FOR DENTAL PROCEDURE BY WEEK'S END. HER DENTIST WILL BE LEAVING BY WEEK'S END PATIENT WILL HAVE TO BE OFF BLOOD THINNERS VERY SOON IN ORDER TO BE SCHEDULED BEFORE HER DENTIST LEAVES. ASKING IF OFFICE CAN CALL [phone], OPTION 2 (ASK FOR BRISTON) TO ADVISE [...] extractions. Form put on Dr Dhaliwal desk. [facility] that they are requesting new form for extracting more teeth. LISA Junior Sabrina, MA 08/19/2024 4:12 PM Signed Faxed surgical clearance form to [facility]. Husam Grant MA Allergies As of Date: 08/19/2024 Noted Allergy Reaction LATEX 06/22/2020 10 - Anaphylaxis ABILIFY (ARIPIPRAZOLE) 04/19/2022 14 - Other: See Comments Comments: Muscles couldn't get up CODEINE 06/22/2020 6 - Diarrhea COMPAZINE (PROCHLORPERAZINE) 06/22/2020 17 - Myalgia LEVAQUIN (LEVOFLOXACIN) 06/22/2020 6 - Diarrhea OMNICEF (CEFDINIR) 06/22/2020 6 - Diarrhea PREDNISONE 08/30/2021 8 - GI Upset PROPOXYPHENE 06/23/2015 16 - Unknown FWFJDCM-SER-CLB REDUCTASE INHIBIT*06/22/2020 6 - Diarrhea 5 - [...] by mouth two times a day. - clotrimazole-betamethasone (LOTRISONE) cream Apply to affected [...] 8 hours as needed for nausea/vomiting. - nmulvwerfr-hetoxyfl-epsguq itzel (BREZTRI AEROSPHERE) 160-9-4.8 mcg/actuation HFA aerosol inhaler [...] As Of Date (more content not included)... [facility] 08-12-2024 [facility] Telephone (FPUPDV) -- ADINA ESCOBAR I ([id number]) 1950 F Date Time Provider Department 08/12/24 [...] GI Upset PROPOXYPHENE 06/23/2015 16 - Unknown TGKAUZF-ERO-VEJ REDUCTASE INHIBIT*06/22/2020 6 - Diarrhea 5 - Intolerance SULFA (SULFONAMIDE ANTIBIOTICS) 06/15/2020 14 - Other: See Comments Comments: Leg pain SHELLFISH CONTAINING PRODUCTS 11/29/2012 7 - Swelling Date Reviewed: 07/12/2024 Reviewed by: Kentrell Dhaliwal II, MD - Fully Assessed Reason for Visit: Patient Question [6857] Visit Diagnosis:Anxiety and depression [F41.9, F32.A] Order(s):busPIRone [...] by mouth two times a day. - clotrimazole-betamethasone (LOTRISONE) cream Apply to affected [...] 8 hours as needed for nausea/vomiting. - pzpjybrwcw-biopbczj-ipjdxc itzel (BREZTRI AEROSPHERE) 160-9-4.8 mcg/actuation HFA aerosol inhaler [...] [F41.9, F32.A] Hypo (more content not included)... [facility] 08-11-2024 [facility] Telephone (FPUPDV) -- ADINA ESCOBAR I ([id number]) 1950 F Date Time Provider Department 08/11/24 KENTRELL DHALIWAL II UPDV During your visit today, we recorded the following information about you: Husam Grant MA 08/11/2024 12:06 PM Signed Patient called office in regards to be at the dentists office. Patient stated that she is getting a tooth extracted and has yanelis off the coumadin for a week. Dental pharmacy innovation assistant asked if a week was long enough for being off coumadin. Went back asked Dr Dhaliwal if a week is long enough to be off the coumadin and per Dr Dhaliwal yes. Informed dental pharmacy innovation assistant per Dr Dhaliwal yes a week is long enough to bee off coumadin. Dental pharmacy innovation assistant stated thank you. Husam Grant MA Jeff Tyleri 08/19/2024 1:14 PM Signed Briston from [facility] calls to speak with someone in the office in regards to this patient. Call was transferred to [facility] Allergies As of Date: 08/11/2024 Noted Allergy Reaction LATEX 06/22/2020 10 - Anaphylaxis ABILIFY (ARIPIPRAZOLE) 04/19/2022 14 - Other: See Comments Comments: Muscles couldn't get up CODEINE 06/22/2020 6 - Diarrhea COMPAZINE (PROCHLORPERAZINE) 06/22/2020 17 - Myalgia LEVAQUIN (LEVOFLOXACIN) 06/22/2020 6 - Diarrhea OMNICEF (CEFDINIR) 06/22/2020 6 - Diarrhea PREDNISONE 08/30/2021 8 - GI Upset PROPOXYPHENE 06/23/2015 16 - Unknown QAPMZNB-HSH-YJV REDUCTASE INHIBIT*06/22/2020 6 - Diarrhea 5 - Intolerance SULFA (SULFONAMIDE ANTIBIOTICS) 06/15/2020 14 - Other: See Comments Comments: Leg pain SHELLFISH CONTAINING PRODUCTS 11/29/2012 7 - Swelling Date Reviewed: 07/12/2024 Reviewed by: Kentrell Dhaliwal II, MD - Fully Assessed Reason for Visit: Patient Question [8557] Prescriptions as of 08/19/2024 - busPIRone (BUSPAR) [...] by mouth two times a day. - clotrimazole-betamethasone (LOTRISONE) cream Apply to affected [...] 8 hours as needed for nausea/vomiting. 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 [facility] 12 Lead EKGon 08-01-2024 12 Lead EKG [facility] Cardiovascular Services [address] [place] [address] 12 Lead EKG 08/01/24 1344 MR#: [id number] Acct: [id number] Name: ADINA ESCOBAR Rep #: [id number] : 1950 74 From: Cira Andersen MD Attending Dr: Status: DEP ER Ordering Dr: Samson Gan DO Date: 4 Location: ED Sex: F C Admitted: Test Reason : Blood Pressure : */* mmHG Vent. Rate : 63 BPM Atrial Rate : 63 BPM P-R Int : 170 ms QRS Dur : 80 ms QT Int : 424 ms P-R-T Axes : 67 28 52 degrees QTcB Int : 433 ms Normal sinus rhythm Normal ECG Confirmed by SEAN KAPADIA, LILINA ([id number]), food editor ROGERS OCHOA ([id number]) on 08/05/2024 8:03:18 AM Referred By: Confirmed By: LILIAN ANDERSEN MD 08/05/24 0803 Date Cira Andersen MD CC: Dr. Samson Gan DO; Dr. Kentrell Dhaliwal MD Signed Normal [facility] Abdomen/Pelvis W IV Cont ONL Yon 08-01-2024 Abdomen/Pelvis W IV Cont ONLY [facility] Imaging Services [address] [place] [id number] Abdomen/Pelvis W IV Cont ONLY MR#: [id number] Acct: [id number] Name: ADINA ESCOBAR Rep #: [id number] : 1950 F 74 From: Lex Borrero MD PCP: Dr. Kentrell Dhaliwal MD Status: REG ER Study: Abdomen/Pelvis W IV Cont ONLY Date of Exam: Exam# [id number] Ordering Dr: Samson Gan DO [id number] INDICATION: Abdominal pain, history of cholecystectomy, appendectomy, hysterectomy and colonic surgery EXAMINATION: CT ABDOMEN AND PELVIS WITH CONTRAST - CT Abdomen And Pelvis W/ Contrast Injection TECHNIQUE: Helically acquired images were obtained of the abdomen and pelvis following IV contrast. A radiation dose optimization technique was used for this scan. IV Contrast dosage and agent: 100 cc Isovue-300 Oral contrast: None. COMPARISON: 12/06/2023 FINDINGS: LOWER CHEST: Lung bases are clear. No cardiomegaly or pericardial effusion. LIVER: Stable low-attenuation lesion right lobe. No concerning focal mass. GALLBLADDER AND BILIARY TREE: Cholecystectomy. Stable biliary dilatation with 8 mm common bile duct. No choledocholithiasis. PANCREAS: No focal cystic or solid mass. SPLEEN: Normal size without focal cystic or solid mass. ADRENAL GLANDS: No nodules. KIDNEYS AND URETERS: Uniform enhancement, small right cortical cyst. No hydronephrosis. PERITONEUM: No ascites or free air. BOWEL: No evidence of acute appendicitis. Stable surgical changes with stable focal bowel dilatation at the anastomotic sutures in the lower abdomen. Diffusely increased colonic fecal burden. LYMPH NODES: No enlarged mesenteric or retroperitoneal lymph nodes. VESSELS: Aorta is non-dilated. URINARY BLADDER: Unremarkable. REPRODUCTIVE ORGANS: Hysterectomy. ABDOMINAL WALL: No discrete abdominal or pelvic wall hernia. BONES: No acute or aggressive abnormality. CT/Abdomen/Pelvis W IV Cont ONLY IMPRESSION: No acute findings in the abdomen or pelvis. Stable postsurgical changes in the abdomen. Status post cholecystectomy with stable biliary dilatation. Colonic fecal burden consistent with clinical constipation. Electronically Signed: Lex Borrero MD at 16:13 EST Reading Location ID and State: [facility] / [place] Tel , Service support , CC: Dr. Samson Gan, ; Dr. 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, [address] CBC W/Diff, Automatedon 07-18 Absolute Lymph 3.18 X10 3/uL Normal 0.83-4.51 [facility] Comment on above: Performed By: #### L 300.3900 #### [facility] [address] [place], [address] Absolute Neut 3.7 X10 3/uL Normal 2.0-7.7 [facility] Comment on above: Performed By: #### L 300.3900 #### [facility] [address] [place], [address] Basophils/100 WBC (Bld) 0.8 % Normal 0-1 [facility] Comment on above: Performed By: #### L 300.3900 #### [facility] [address] [place], [address] Eosinophils/100 WBC (Bld) 2.5 % Normal 0-5 [facility] Comment on above: Performed By: #### L 300.3900 #### [facility] [address] [place], [address] Erythrocyte distribution width (RBC) [Ratio] 13.4 % Normal 11.6-14.6 [facility] Comment on above: Performed By: #### L 300.3900 #### [facility] [address] [place], [address] Hematocrit (Bld) [Volume fraction] 31.7 % Low 37-47 [facility] Comment on above: Performed By: #### L 300.3900 #### [facility] [address] [place], [address] Hemoglobin (Bld) [Mass/Vol] 10.3 g/dL Low 12.0-15.0 [facility] Comment on above: Performed By: #### L 300.3900 #### [facility] [address] [place], [address] IG% 0.500 Normal 0.0-0.9 [facility] Comment on above: Result Comment: IG% - Immature Granulocytes (promyelocytes, myelocytes and metamyelocytes) > 1% indicates that a LEFT SHIFT is Present. Performed By: #### L 300.3900 #### [facility] [address] [place], [address] Lymphocytes/100 WBC (Bld) 40.0 % Normal 19-41 [facility] Comment on above: Performed By: #### L 300.3900 #### [facility] [address] [place], [address] MCH (RBC) [Entitic mass] 31.0 pg Normal 27.0-32.0 [facility] Comment on above: Performed By: #### L 300.3900 #### [facility] [address] [place], [address] MCHC (RBC) [Mass/Vol] 32.5 g/dL Normal 32-36 [facility] Comment on above: Performed By: #### L 300.3900 #### [facility] [address] [place], [address] MCV (RBC) [Entitic vol] 95.5 fL Normal 81-99 [facility] Comment on above: Performed By: #### L 300.3900 #### [facility] [place], [address] Monocytes/100 WBC (Bld) 9.3 % Normal 0-10 [facility] Comment on above: Performed By: #### L 300.3900 #### [facility] [address] [place], [address] Neutrophils/100 WBC (Bld) 46.9 % Low 47-70 [facility] Comment on above: Performed By: #### L 300.3900 #### [facility] [address] [place], [address] Nucleated RBC (Bld) [#/Vol] 0 10*3/uL Normal 0-5 [facility] Comment on above: Performed By: #### L 300.3900 #### [facility] [address] [place], [address] Platelet mean volume (Bld) [Entitic vol] 9.7 fL Normal 6.2-12.0 [facility] Comment on above: Performed By: #### L 300.3900 #### [facility] [address] [place], [address] Platelets (Bld) [#/Vol] 326 10*3/uL Normal 150-450 [facility] Comment on above: Performed By: #### L 300.3900 #### [facility] [address] [place], [address] RBC (Bld) [#/Vol] 3.32 10*6/uL Low 4.2-5.4 [facility] Comment on above: Performed By: #### L 300.3900 #### [facility] [address] [place], [address] RDW SD 47.4 fl High 35.1-43.9 [facility] Comment on above: Performed By: #### L 300.3900 #### [facility] [address] [place], [address] WBC (Bld) [#/Vol] 8.0 10*3/uL Normal 4.4-11.0 [facility] Comment on above: Performed By: #### L 300.3900 #### [facility] [address] [place], [address] Chest PA and Lateralon 08-01 Chest PA and Lateral [facility] [address] [place] [address] Chest PA and Lateral MR#: [id number] Acct: [id number] Name: ADINA ESCOBAR Rep #: [id number] : 1950 F 74 From: Lex Borrero MD PCP: Dr. Kentrell Dhaliwal MD Status: [facility] ER Study: Chest PA and Lateral Date of Exam: 08/01/24 Exam# [id number] Ordering Dr: Samson Gan DO [id number] INDICATION: Edema EXAMINATION/TECHNIQUE: X-RAY - XR Chest 2 Views COMPARISON: 12/13/2023 FINDINGS: LINES/DEVICES: None. LUNGS: No consolidation, edema or effusion. No pneumothorax. MEDIASTINUM AND CARDIOVASCULAR STRUCTURES: Cardiac silhouette not enlarged. Central airways and mediastinal contour are unremarkable. BONES AND SOFT TISSUES: No acute changes. RAD/Chest PA and Lateral IMPRESSION: No radiographic evidence of acute cardiopulmonary disease. Electronically Signed: Lex Borrero MD at 15:49 EST , CC: Dr. Samson Gan DO; Dr. Kentrell Dhaliwal MD Scuba Diving Instructor: Signed Normal [facility] Comprehensive Metabolic Prof ilon 08-01-2024 Albumin [Mass/Vol] 3.2 g/dL Normal 3.2-5.0 [facility] Comment on above: Order Comment: 'TROP ' Serial specimen #1, #2 or #3: 1 Performed By: #### L 300.3900 #### [facility] [address] [place], [address] Albumin/Globulin [Mass ratio] 0.9 {ratio} Normal 0.9-2.4 [facility] Comment on above: Order Comment: 'TROP ' Serial specimen #1, #2 or #3: 1 Performed By: #### L 300.3900 #### [facility] [address] [place], [address] ALK P 86 U/L Normal 45-117 [facility] Comment on above: Order Comment: 'TROP ' Serial specimen #1, #2 or #3: 1 Performed By: #### L 300.3900 #### [facility] [address] [place], [address] ALT [Catalytic activity/Vol] 20 U/L Normal 13-56 [facility] Comment on above: Order Comment: 'TROP ' Serial specimen #1, #2 or #3: 1 Performed By: #### L 300.3900 #### [facility] [address] [place], [address] AST [Catalytic activity/Vol] 26 U/L Normal 15-37 [facility] Comment on above: Order Comment: 'TROP ' Serial specimen #1, #2 or #3: 1 Performed By: #### L 300.3900 #### [facility] [address] [place], [address] Bilirubin [Mass/Vol] 0.40 mg/dL Normal 0.20-1.00 [facility] Comment on above: Order Comment: 'TROP ' Serial specimen #1, #2 or #3: 1 Result Comment: For patients on eltrombopag therapy, use of Dimension [place] TBIL is not recommended. Performed By: #### L 300.3900 #### [facility] [address] [place], [address] BUN/CRE 16.5 RATIO Normal 10-20 [facility] Comment on above: Order Comment: 'TROP ' Serial specimen #1, #2 or #3: 1 Performed By: #### L 300.3900 #### [facility] [address] [place], [address] CA,Total 8.4 mg/dL Low 8.5-10.1 [facility] Comment on above: Order Comment: 'TROP ' Serial specimen #1, #2 or #3: 1 Performed By: #### L 300.3900 #### [facility] [address] [place], [address] Chloride [Moles/Vol] 109 mmol/L High 98-107 [facility] Comment on above: Order Comment: 'TROP ' Serial specimen #1, #2 or #3: 1 Performed By: #### L 300.3900 #### [facility] [address] [place], [address] CO2 [Moles/Vol] 28.0 mmol/L Normal 21.0-32.0 [facility] Comment on above: Order Comment: 'TROP ' Serial specimen #1, #2 or #3: 1 Performed By: #### L 300.3900 #### [facility] [address] [place], [address] Creatinine [Mass/Vol] 1.03 mg/dL High 0.55-1.02 [facility] Comment on above: Order Comment: 'TROP ' Serial specimen #1, #2 or #3: 1 Result Comment: The validity of the calculated GFR GFRAA in patients over 70 years has not been determined. Clinical correlation is essential. Performed By: #### L 300.3900 #### [facility] [address] [place], [address] EST GFR - AA 68 mL/min Normal >60 [facility] Comment on above: Order Comment: 'TROP ' Serial specimen #1, #2 or #3: 1 Result Comment: Afri can [place]i GFR Calc Performed By: #### L 300.3900 #### [facility] [address] [place], [address] GAP 2 Low 5-15 [facility] Comment on above: Order Comment: 'TROP ' Serial specimen #1, #2 or #3: 1 Performed By: #### L 300.3900 #### [facility] [address] [place], [address] GFR/1.73 sq M.predicted among non-blacks MDRD (S/P/Bld) [Vol rate/Area] 56 mL/min/{1.73_m2} Low >60 [facility] Comment on above: Order Comment: 'TROP ' Serial specimen #1, #2 or #3: 1 Result Comment: Non- GFR Calc Performed By: #### L 300.3900 #### [facility] [address] [place], [address] Globulin (S) [Mass/Vol] 3.6 g/dL Normal 2.2-4.2 [facility] Comment on above: Order Comment: 'TROP ' Serial specimen #1, #2 or #3: 1 Performed By: #### L 300.3900 #### [facility] [address] [place], [address] Glucose [Mass/Vol] 92 mg/dL Normal 74-106 [facility] Comment on above: Order Comment: 'TROP ' Serial specimen #1, #2 or #3: 1 Performed By: #### L 300.3900 #### [facility] [address] [place], [address] Potassium [Moles/Vol] 4.6 mmol/L Normal 3.5-5.1 [facility] Comment on above: Order Comment: 'TROP ' Serial specimen #1, #2 or #3: 1 Performed By: #### L 300.3900 #### [facility] [address] [place], [address] Sodium [Moles/Vol] 139 mmol/L Normal 136-145 [facility] Comment on above: Order Comment: 'TROP ' Serial specimen #1, #2 or #3: 1 Performed By: #### L 300.3900 #### [facility] [address] [place], [address] T PROT 6.8 g/dL Normal 6.4-8.2 [facility] Comment on above: Order Comment: 'TROP ' Serial specimen #1, #2 or #3: 1 Performed By: #### L 300.3900 #### [facility] [address] [place], [address] Urea nitrogen [Mass/Vol] 17 mg/dL Normal 7-18 [facility] Comment on above: Order Comment: 'TROP ' Serial specimen #1, #2 or #3: 1 Performed By: #### L 300.3900 #### [facility] [address] [place], [address] Emergency Department Summary on 08-01-2024 Emergency Department Summary [facility] Medical Records Department [address] [place] [address] Emergency Department Summary 08/01/24 MR#: [id number] Acct: [id number] Name: ADINA ESCOBAR Rep #: [id number] : 1950 74 From: Samson Gan DO PCP: Dr. Kentrell Dhaliwal MD Status:REG ER Location: ED HPI History of Present Illness Chief Complaint: General Illness Narrative Narrative: At chief complaint and HPI: Multiple complaints. 74-year-old female with history of IBS, hypothyroidism, anxiety, history of blood clot on warfarin presents for evaluation of multiple complaints. Patient states a month ago she was treated for a left ear infection with perforated eardrum. She states she was placed on Augmentin and symptoms resolved. She states she followed up with her PCP and everything healed well. 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 She states that she is periodically dropping things. Patient also endorses bilateral lower extremity swelling for the past week. She also endorses diffuse abdominal pain that started yesterday. She denies any fever, chills, URI symptoms, shortness of breath, chest pain, nausea, vomiting, diarrhea, constipation, dysuria. Patient states she called her PCPs office today who told her that she needs to present to the emergency department. Review of systems: See HPI Medications: As listed on the chart Allergies: As listed on the chart PFSH: Per chart Vital signs: As listed on the chart. Reviewed. Physical exam: Gen: A O x3, NAD Head: Normocephalic, atraumatic Eyes: No sclera icterus, conjunctiva clear, PERRL, EOMI ENT: TMs clear BL, moist mucous membranes Neck: Trachea midline, No JVD, Full ROM CV: RRR, no murmurs, mild bilateral nonpitting peripheral edema Resp: Lungs CTA BL, no w/r/c GI: Abd soft, non-distended, diffuse tenderness to palpation, no r/r : No CVA tenderness Musc: Full ROM, no deformity, strength plus 5 out of 5 in all extremities, + Phalen's test for carpal tunnel Skin: Warm, dry, no rash PFSH PFS Medical History Anxiety and depression Chronic anemia CKD (chronic kidney disease), stage III Depression DVT (deep venous thrombosis) GERD (gastroesophageal reflux disease) History of small bowel obstruction History of venous thromboembolism HLD (hyperlipidemia) Hyperthyroidism Hypothyroidism Irritable bowel Scarlet fever Home Medications ???Medication ???Instructions ???Recorded ???Last Taken ???Type alprazolam 1 mg tablet (Xanax) 1 mg PO BID anxiety 12/11/22 Unknown History bupropion HCl 150 mg 24 hr tablet, 150 mg PO BID mental health 12/11/22 Unknown History extended release esomeprazole magnesium 20 mg 20 mg PO DAILY reflux 12/11/22 Unknown History capsule,delayed release ezetimibe 10 mg tablet 10 mg PO DAILY cholesterol 12/11/22 Unknown History levothyroxine 50 mcg tablet 50 mcg PO DAILY thyroid 12/11/22 Unknown History zolpidem 10 mg tablet (Ambien) 10 mg PO QHS sleep 12/11/22 Unknown History docusate sodium 100 mg capsule 100 mg PO BID stool softner 03/31/23 Unknown History budesonide 160 mcg-glycopyr 9 2 inh inhalation BID breathing 12/06/23 Unknown History mcg-formot 4.8 mcg/actuation HFA inhaler (Breztri Aerosphere) buspirone 15 mg tablet 7.5 mg PO BID mental health 12/06/23 Unknown History polyethylene glycol 3350 17 17 g PO BID bowels 12/06/23 Unknown History gram/dose oral powder (Miralax) ropinirole 0.5 mg tablet 0.5 mg PO BID restless legs 12/06/23 Unknown History warfarin 5 mg tablet 5 mg PO DAILY blood thinner 12/06/23 Unknown History ondansetron HCl 4 mg tablet 4 mg PO Q6H PRN Nausea #10 tabs 12/13/23 Unknown Rx Allergy/AdvReac Type Severity Reaction Status Date / Time cefdinir (From SourceThoughticef) Allergy Hives Verified 08/01/24 12:44 codeine Allergy NEEDS Verified 08/01/24 12:44 FOLLOW-UP latex Allergy Anaphylaxis Verified 08/01/24 12:44 prochlorperazine (From Allergy NEEDS Verified 08/01/24 12:44 Compazine) FOLLOW-UP shellfish derived Allergy Anaphylaxis Verified 08/01/24 12:44 levofloxacin (From Levaquin) AdvReac Vomiting Verified 08/01/24 12:44 Eenfclx-ZVQ-AsP Reductase AdvReac NEEDS Verified 08/01/24 12:44 Inhibitor FOLLOW-UP Family History (Updated 03/16/23 @ 06:[address] Jessica Thomas MD) Mother Heart disease COPD (chronic obstructive pulmonary disease) Father Heart disease Hypertension CAD (coronary artery disease) Myocardial infarction Surgical History History of appendectomy History of cholecystectomy History of colon surgery History of total abdominal hysterectomy Social History ... Normal [facility] L501.4020on 08-01-2024 TROPONIN-I HS 3 pg/mL Normal 3.0-54.0 [facility] Comment on above: Order Comment: 'TROP ' Serial specimen #1, #2 or #3: 1 Result Comment: Michael arreola Note: New Test Units and Gender Specific Reference Ranges. For more information see Policy Stat Procedure [place] High Sensitivity Troponin (TNIH) and attachments. Performed By: #### L 300.3900 #### [facility] [address] [place], [place], [address] Lipaseon 08-01-2024 Lipase [Catalytic activity/Vol] 28 U/L Normal 13-75 [facility] Comment on above: Order Comment: 'TROP ' Serial specimen #1, #2 or #3: 1 Result Comment: Michael arreola note: LIPASE revised reference range effective 22. New Lipase methodology. Expected to produce lower values than the previous assay method. NEW Reference Range: 13 - 75 U/L Performed By: #### L 300.3900 #### [facility] [address] [place], [address] T4 Free Directon 08-01-2024 T4 FREE DIRECT 1.01 ng/dL Normal 0.76-1.46 [facility] Comment on above: Order Comment: 'TROP ' Serial specimen #1, #2 or #3: 1 Performed By: #### L 300.3900 #### [facility] [address] [place], [address] Thyroid Stim Hormone (TSH)on 08-01-2024 TSH 4.320 uIU/mL High 0.358-3.740 [facility] Comment on above: Order Comment: 'TROP ' Serial specimen #1, #2 or #3: 1 Performed By: #### L 300.3900 #### [facility] [address] [place], [address] Urinalysis, Completeon 08-01 EPI,SQUAMOUS 0-5 SEEN Normal 5-10 [facility] Comment on above: Order Comment: CLEAN CATCH Performed By: #### L 400.0001 #### [facility] [address] [place], [address] BACTERIA 0 SEEN Normal None Seen [facility] Comment on above: Order Comment: CLEAN CATCH Performed By: #### L 400.0001 #### [facility] [address] [place], [address] Mucus Ql (Urine sed) 0 SEEN Normal [facility] Comment on above: Order Comment: CLEAN CATCH Performed By: #### L 400.0001 #### [facility] [address] [place], [address] RBC 0 SEEN Normal 0-5 [facility] Comment on above: Order Comment: CLEAN CATCH Performed By: #### L 400.0001 #### [facility] [address] [place], [address] WBC 0 SEEN Normal 0-5 [facility] Comment on above: Order Comment: CLEAN CATCH Performed By: #### L 400.0001 #### [facility] [address] [place], [address] Ab 07-30-2024 CNPN Telephone (FPUPDV) -- BRIEADINA I ([id number]) 1950 F Date Time Provider Department 07/30/24 KENTRELL DHALIWAL II FPUPDV During your visit [...] Asking for recommendations Please advise Thank you [phone] (home) [phone] (cell) Patient last appointment: 07/29/2024 [place] [...] GI Upset PROPOXYPHENE 06/23/2015 16 - Unknown OVDLILK-SVN-TFC REDUCTASE INHIBIT*06/22/2020 6 - Diarrhea 5 - [...] by mouth two times a day. - clotrimazole-betamethasone (LOTRISONE) cream Apply to affected [...] 8 hours as needed for nausea/vomiting. - nxabgtskyi-ndwbqdop-aggslc itzel (BREZTRI AEROSPHERE) 160-9-4.8 mcg/actuation HFA aerosol inhaler [...] without esophagitis [K21. (more content not included)... [facility] Office Visit (FPUPDV ) -- ADINA ESCOBAR I ([id number]) 1950 F Date Time Provider Department 07/04/24 3:20 PM KENTRELL DHALIWAL II FPUPDV During your visit today, we recorded the following information about you: Temperature Pulse Respiration Blood pressure 97.3 degrees 66/minute 16/minute 138/72 Weight Height 60.4 kg 1.549 m Kentrell Dhaliwal II, MD 07/12/2024 7:41 PM Signed Kentrell Dhaliwal II, MD [address], [address] [place] [address] SUBJECTIVE Adina Escobar is a 74 year old female [...] [Cefdinir] Diarrhea Prednisone GI Upset Propoxyphene Unknown Yyvypai-Qfl-Ogv Red* Diarrhea, Intolerance Sulfa (Sulfonamide * Other: [...] daily. levothyroxine (SYNTHR (more content not included)... [facility] 06-25-2024 [facility] Telephone (FPUPDV) -- ADINA ESCOBAR I ([id number]) 1950 F Date Time Provider Department 06/25/24 [...] her for this? Please Advise Thank you [phone] (home) [phone] (cell) Patient last appointment: 06/14/2024 Maximo Wilkinson 06/25/2024 3:59 PM Addendum Patient called and [...] she is doing much better. Thank you. Cinthia Rob 07/03/2024 8:52 AM Signed Patient called in [...] no other symptoms. Please advise, thank you. [phone] (home) [phone] (cell) Kentrell Dhaliwal II, MD 07/03/2024 6:44 [...] GI Upset PROPOXYPHENE 06/23/2015 16 - Unknown SHBCKPA-XLB-YUD REDUCTASE INHIBIT*06/22/2020 6 - Diarrhea 5 - Intolerance SULFA (SULFONAMIDE ANTIBIOTICS) 06/15/2020 14 - Other: See Comments Comments: Leg pain [employer] 11/29/2012 7 - Swelling Date Reviewed: 06/11/2024 Reviewed by: Susanne Uribe - Fully Assessed Reason for Visit: Medication Question [1478] Order(s):naphazoline-pheni ramine eye drops (NAPHCON-A) 0.025-0.3 % ophthalmic solutionUse [...] needed for up to 30 days. - naphazoline-pheniramine eye drops (NAPHCON-A) 0.025-0.3 % ophthalmic solution Use 2 Drops in the left eye every 6 hours as needed. - ondansetron (ZOFRAN) 8 mg tablet Take 1 tablet by mouth every 8 hours as needed for nausea/vomiting. (more content not included)... [facility] Ab 06-13-2024 CNPN Telephone (FPUPDV) -- ADINA ESCOBAR I ([id number]) 1950 F Date Time Provider Department 06/13/24 KENTRELL DHALIWAL II FPUPDV During your visit [...] GI Upset PROPOXYPHENE 06/23/2015 16 - Unknown AKNHLOG-ZCR-MEH REDUCTASE INHIBIT*06/22/2020 6 - Diarrhea 5 - [...] by mouth two times a day. - clotrimazole-betamethasone (LOTRISONE) cream Apply to affected [...] 8 hours as needed for nausea/vomiting. - syjpiiysab-rijicncg-tewfvg itzel (BREZTRI AEROSPHERE) 160-9-4.8 mcg/actuation HFA aerosol inhaler [...] Encounter Status:Closed by HUSAM GRANT on 06/13/24 [facility] 25(OH)D3 SerPl-mCncon 2023 25-hydroxyvitamin D3 [Mass/Vol] 31.5 ng/mL Normal 31.0-80.0 [facility] Comment on above: Order Comment: Speci men Type: BLOOD SPECIMENOrdering Facility: [facility] Address: [address] [place] [address] Performed By: #### 2 4321-2, 1988-11 ####[facility] LABCLIA [id number] [place] [id number] [place] 25-hydroxyvitamin D3 [Mass/V ol]on 06-11-2024 Interpretation and review of laboratory results Normal [facility] Basic metabolic 2000 panelon 06-11-2024 Anion gap [Moles/Vol] 12 mmol/L 8 - 15 mmol/L [facility] Calcium [Mass/Vol] 9.5 mg/dL 8.5 - 10. 2 mg/dL [facility] Chloride [Moles/Vol] 104 mmol/L 98 - 10 7 mmol/L [facility] CO2 [Moles/Vol] 23 mmol/L 22 - 30 mmol/L [facility] Creatinine [Mass/Vol] 1.13 mg/dL High 0.58 - 0.96 mg/dL [facility] GFR/1.73 sq M.predicted among non-blacks MDRD (S/P/Bld) [Vol rate/Area] 51 mL/min/{1.73_m2} Low - PINF [facility] Comment on above: Estimated Glomerular Filtration Rate [...] [Mass/Vol] 78 mg/dL 74 - 99 mg/dL [facility] Comment on above: The [place] Diabete s Association (ADA) provides guidance for [...] Standards of Medical Care in Diabetes 2016, [place] [employer]. Diabetes Care. 2016.39(Suppl 1). Interpretation and review of laboratory results Abnormal [facility] Potassium [Moles/Vol] 4.5 mmol/L 3.7 - 5.1 mmol/L [facility] Sodium [Moles/Vol] 139 mmol/L 136 - 144 mmol/L [facility] Urea nitrogen [Mass/Vol] 16 mg/dL 7 - 21 mg/dL [facility] Anion gap [Moles/Vol] 12 mmol/L Normal 8-15 [facility] Comment on above: Order Comment: Sam talley Type: BLOOD SPECIMENOrdering Facility: [facility] Address: [address] [place] [address] Performed By: #### 2 4320-10, 1988-11 ####[facility] [id number] [place] [address] [place] Calcium [Mass/Vol] 9.5 mg/dL Normal 8.5-10.2 [facility] Comment on above: Order Comment: Sam talley Type: BLOOD SPECIMENOrdering Facility: [facility] Address: [address] [place] [address] Performed By: #### 2 4320-10, 1988-11 ####[facility] LABIA [id number] [place] [address] [place] Chloride [Moles/Vol] 104 mmol/L Normal 98-107 [facility] Comment on above: Order Comment: Sam talley Type: BLOOD SPECIMENOrdering Facility: [facility] Address: [address] [place] [address] Performed By: #### 2 4320-10, 1988-11 ####[facility] LABIA [id number] [place] [address] [place] CO2 [Moles/Vol] 23 mmol/L Normal 22-30 [facility] Comment on above: Order Comment: Sam talley Type: BLOOD SPECIMENOrdering Facility: [facility] Address: [address] [place] [address] Performed By: #### 2 43209-18, 1988-11 ####[facility] LABIA [id number] [place] [address] [place] Creatinine [Mass/Vol] 1.13 mg/dL High 0.58-0.96 [facility] Comment on above: Order Comment: Sam men Type: BLOOD SPECIMENOrdering Facility: [facility] Address: [address] [place] [address] Performed By: #### 2 43209-18, 1988-11 ####[facility] LABIA [id number] [place] [address] [place] [facility] Creatinine and Glomerular filtration rate.predicted panel (S/P/Bld) 51 mL/min/1.73m??? Low >=60 [facility] Comment on above: Order Comment: Sam talley Type: BLOOD SPECIMENOrdering Facility: [facility] Address: [address] [place] [address] Result Comment: [place] mated Glomerular Filtration Rate [...] By: #### 2 4320-10, 1988-11 ####[facility] LABIA [id number] [place] [address] [place] Glucose [Mass/Vol] 78 mg/dL Normal 74-99 [facility] Comment on above: Order Comment: Sam mayank Type: BLOOD SPECIMENOrdering Facility: [facility] Address: [address] [place] [address] Result Comment: The [place] Diabetes Association (ADA) provides guidance for cutoff [...] Standards of Medical Care in Diabetes 2016, [place] Diabetes Association. Diabetes Care. 2016.39(Suppl 1). Performed By: #### 2 4320-10, 1988-11 ####[facility] [id number] [place] [address] [place] Potassium [Moles/Vol] 4.5 mmol/L Normal 3.7-5.1 [facility] Comment on above: Order Comment: Speci men Type: BLOOD SPECIMENOrdering Facility: [facility] Address: [address] [place] [address] Performed By: #### 2 4320-10, 1988-11 ####[facility] [id number] [place] [address] [place] Sodium [Moles/Vol] 139 mmol/L Normal 136-144 [facility] Comment on above: Order Comment: Omeroi men Type: BLOOD SPECIMENOrdering Facility: [facility] Address: [address] [place] [address] Performed By: #### 2 4320-10, 1988-11 ####[facility] [id number] [place] [address] [place] Urea nitrogen [Mass/Vol] 16 mg/dL Normal 7-21 [facility] Comment on above: Order Comment: Speci men Type: BLOOD SPECIMENOrdering Facility: [facility] Address: [address] [place] [address] Performed By: #### 2 4320-10, 1988-11 ####[facility] [id number] [place] [address] [place] CBC panel Auto (Bld)on 06-11 Erythrocyte distribution width (RBC) [Ratio] 14.6 % 11.5 - 15.0 % [facility] Hematocrit (Bld) [Volume fraction] 37.1 % 36.0 - 46.0 % [facility] Hemoglobin (Bld) [Mass/Vol] 12.2 g/dL 11.5 - 15.5 g/dL [facility] Interpretation and review of laboratory results Normal [facility] MCH (RBC) [Entitic mass] 30.7 pg 26.0 - 34.0 pg [facility] MCHC (RBC) [Mass/Vol] 32.9 g/dL 30.5 - 36.0 g/dL [facility] MCV (RBC) [Entitic vol] 93.2 fL 80.0 - 100.0 fL [facility] Nucleated RBC (Bld) [#/Vol] NINF [facility] Platelet mean volume (Bld) [Entitic vol] 9.7 fL 9.0 - 12.7 fL [facility] Platelets (Bld) [#/Vol] 385 10*3/uL [facility] RBC (Bld) [#/Vol] 3.98 10*6/uL 3.90 - 5.2 0 m/uL [facility] WBC (Bld) [#/Vol] 8.86 10*3/uL [facility] Erythrocyte distribution width (RBC) [Ratio] 14.6 % Normal 11.5-15.0 [facility] Comment on above: Order Comment: Speci men Type: BLOOD SPECIMENOrdering Facility: [facility] Address: [address] [place] [address] Performed By: #### 5 8410-2 ####[facility] [id number] [address] STATES OF [facility] Hematocrit (Bld) [Volume fraction] 37.1 % Normal 36.0-46.0 [facility] Comment on above: Order Comment: Speci men Type: BLOOD SPECIMENOrdering Facility: [facility] Address: [address] [place] [address] Performed By: #### 5 8410-2 ####[facility] [id number] [place] [address] [place] Hemoglobin (Bld) [Mass/Vol] 12.2 g/dL Normal 11.5-15.5 [facility] Comment on above: Order Comment: Speci men Type: BLOOD SPECIMENOrdering Facility: [facility] Address: [address] [place] [address] Performed By: #### 5 8410-2 ####[facility] LABIA [id number] [address] [facility] MCH (RBC) [Entitic mass] 30.7 pg Normal 26.0-34.0 [facility] Comment on above: Order Comment: Speci men Type: BLOOD SPECIMENOrdering Facility: [facility] Address: [address] [place] [address] Performed By: #### 5 8410-2 ####[facility] [id number] [address] [facility] MCHC (RBC) [Mass/Vol] 32.9 g/dL Normal 30.5-36.0 [facility] Comment on above: Order Comment: Speci men Type: BLOOD SPECIMENOrdering Facility: [facility] Address: [address] [place] [address] Performed By: #### 5 8410-2 ####[facility] [id number] [address] [place] MCV (RBC) [Entitic vol] 93.2 fL Normal 80.0-100.0 [facility] Comment on above: Order Comment: Speci men Type: BLOOD SPECIMENOrdering Facility: [facility] Address: [address] [place] [address] Performed By: #### 5 8410-2 ####[facility] [id number] [address] Nucleated RBC (Bld) [#/Vol] 10*3/uL Normal <0.01 [facility] Comment on above: Order Comment: Speci men Type: BLOOD SPECIMENOrdering Facility: [facility] Address: [address] [place] [address] Performed By: #### 5 8410-2 ####[facility] [id number] [address] [place] Platelet mean volume (Bld) [Entitic vol] 9.7 fL Normal 9.0-12.7 [facility] Comment on above: Order Comment: Speci men Type: BLOOD SPECIMENOrdering Facility: [facility] Address: [address] [place] [address] Performed By: #### 5 8410-2 ####[facility] [id number] [place] [address] [place] Platelets (Bld) [#/Vol] 385 10*3/uL Normal 150-400 [facility] Comment on above: Order Comment: Speci men Type: BLOOD SPECIMENOrdering Facility: [facility] Address: [address] [place] [address] Performed By: #### 5 8410-2 ####[facility] [id number] [place] [address] [place] RBC (Bld) [#/Vol] 3.98 10*6/uL Normal 3.90-5.20 [facility] Comment on above: Order Comment: Speci men Type: BLOOD SPECIMENOrdering Facility: [facility] Address: [address] [place] [address] Performed By: #### 5 8410-2 ####[facility] [id number] [place] [address] [place] WBC (Bld) [#/Vol] 8.86 10*3/uL Normal 3.70-11.00 [facility] Comment on above: Order Comment: Speci men Type: BLOOD SPECIMENOrdering Facility: [facility] Address: [address] [place] [address] Performed By: #### 5 8410-2 ####[facility] [id number] [place] [address] [facility] CNOVon 06-11-2024 CNOV Office Visit (FPUPDV ) -- ADINA ESCOBAR I ([id number]) 1950 F Date Time Provider Department 06/11/24 10:00 AM KENTRELL DHALIWAL II FPUPDV During your visit today, we recorded the following information about you: Temperature Pulse Blood pressure Weight 97.3 degrees 90/minute 158/80 57.8 kg Height 1.549 m Kentrell Dhaliwal II, MD 06/14/2024 9:10 PM Signed Kentrell Dhaliwal II, MD [address], [address] [place] [id number] SUBJECTIVE Adina Escobar is a 74 year old female who presents with Follow Up (3 month follow up. Pt states that she is having breathing issues. Using all of her inhalers. Pt stated that the time is coming that she will need to go to the intermediate. Pt needing refills. Pt would like to [...] [Cefdinir] Diarrhea Prednisone GI Upset Propoxyphene Unknown Enzyryo-Hpy-Ljc Red* Diarrhea, Intolerance Sulfa (Sulfonamide * Other: [...] 10 days. (more content not included)... Normal [facility] Hepatic function 2000 panelO rdered By: Abigail Chahal on 06-11-2024 Albumin [Mass/Vol] 4.1 g/dL 3.9 - 4.9 g/dL [facility] ALP [Catalytic activity/Vol] 91 U/L 34 - 123 U/L [facility] ALT [Catalytic activity/Vol] 20 U/L 7 - 38 U/L [facility] AST [Catalytic activity/Vol] 27 U/L 13 - 35 U/L [facility] Bilirubin [Mass/Vol] 0.3 mg/dL 0.2 - 1 .3 mg/dL [facility] Bilirubin.conjugated [Mass/Vol] mg/dL NINF - 0.2 mg/dL [facility] Interpretation and review of laboratory results Normal [facility] Protein [Mass/Vol] 7.2 g/dL 6.3 - 8.0 g/dL [facility] Hepatic function 2000 panelo n 06-11-2024 Albumin [Mass/Vol] 4.1 g/dL Normal 3.9-4.9 [facility] Comment on above: Order Comment: Sam talley Type: BLOOD SPECIMENOrdering Facility: [facility] Address: [address] [place] [address] Performed By: #### 2 4325-3, 96674-6, 3016-3, 67904-6 ####[facility] LABCLIA [id number] [address] OF [facility] ALP [Catalytic activity/Vol] 91 U/L Normal 34-123 [facility] Comment on above: Order Comment: Omeroi mayank Type: BLOOD SPECIMENOrdering Facility: [facility] Address: [address] [place] [address] Performed By: #### 2 4325-3, 71029-0, 3015-3, 61993-6 ####[facility] LABCLIA [id number] [place] [address] [place] ALT [Catalytic activity/Vol] 20 U/L Normal 7-38 [facility] Comment on above: Order Comment: Speci men Type: BLOOD SPECIMENOrdering Facility: [facility] Address: [address] [place] [address] Performed By: #### 2 4325-3, 07592-1, 3015-3, 60316-4 ####[facility] LABIA [id number] [place] [address] [place] AST [Catalytic activity/Vol] 27 U/L Normal 13-35 [facility] Comment on above: Order Comment: Speci men Type: BLOOD SPECIMENOrdering Facility: [facility] Address: [address] [place] [address] Performed By: #### 2 5-3, 05291-5, 3015-3, 18005-0 ####[facility] [id number] [place] [address] [place] Bilirubin [Mass/Vol] 0.3 mg/dL Normal 0.2-1.3 [facility] Comment on above: Order Comment: Speci men Type: BLOOD SPECIMENOrdering Facility: [facility] Address: [address] [place] [address] Performed By: #### 2 4325-3, 88257-3, 3, 68707-7 ####[facility] LABIA [id number] [place] [address] [place] Bilirubin.conjugated [Mass/Vol] mg/dL Normal <0.2 [facility] Comment on above: Order Comment: Speci men Type: BLOOD SPECIMENOrdering Facility: [facility] Address: [address] [place] [address] Performed By: #### 2 4325-3, 82512-3, 3015-3, 64099-7 ####[facility] LABCLIA [id number] [address] Protein [Mass/Vol] 7.2 g/dL Normal 6.3-8.0 [facility] Comment on above: Order Comment: Speci men Type: BLOOD SPECIMENOrdering Facility: [facility] Address: [address] [place] [id number] Performed By: #### 2 4325-3, 24468-1, 6-3, 99785-2 ####[facility] LABCLIA [id number] [place] [address] [place] Iron and Iron binding capaci ty panelon 06-11-2024 Interpretation and review of laboratory results Abnormal [facility] Iron [Mass/Vol] 45 ug/dL 41 - 186 ug/dL [facility] Iron binding capacity [Mass/Vol] 305 ug/dL 232 - 386 ug/dL [facility] Iron/TIBC [Molar ratio] 14.8 % Low 15.0 - 57.0 % [facility] Iron [Mass/Vol] 45 ug/dL Normal 41-186 [facility] Comment on above: Order Comment: Speci men Type: BLOOD SPECIMENOrdering Facility: [facility] Address: [address] [place] [id number] Performed By: #### 2 4325-3, 51272-1, 3015-3, 88149-8 ####[facility] LABIA [id number] [address] [facility] Iron binding capacity [Mass/Vol] 305 ug/dL Normal 232-386 [facility] Comment on above: Order Comment: Speci men Type: BLOOD SPECIMENOrdering Facility: [facility] Address: [address] [place] [address] Performed By: #### 2 4325-3, 41947-3, 3015-3, 52332-9 ####[facility] LABIA [id number] [place] [address] [place] [facility] Iron/TIBC [Molar ratio] 14.8 % Low 15.0-57.0 [facility] Comment on above: Order Comment: Speci men Type: BLOOD SPECIMENOrdering Facility: [facility] Address: [address] [place] [address] Performed By: #### 2 4325-3, 26739-8, 3016-3, 65878-8 ####[facility] LABIA [id number] [place] [address] [facility] MAGNESIUMon 06-11-2024 Magnesium [Mass/Vol] 2.0 mg/dL 1.7 - 2 .3 mg/dL [facility] Magnesium SerPl-mCncon 06-11 Magnesium [Mass/Vol] 2.0 mg/dL Normal 1.7-2.3 [facility] Comment on above: Order Comment: Speci men Type: BLOOD SPECIMENOrdering Facility: [facility] Address: [address] [place] [address] Performed By: #### 2 4325-3, 87552-5, 6-3, 55712-3 ####[facility] [id number] [place] [address] [facility] No Panel Informationon 06-11 Interpretation and review of laboratory results Normal [facility] THYROID STIMULATING HORMONEo n 06-11-2024 TSH Qn 3.370 m[IU]/L [facility] TSH SerPl-aCncon 06-11-2024 TSH Qn 3.370 m[IU]/L Normal 0.270-4.200 [facility] Comment on above: Order Comment: Speci men Type: BLOOD SPECIMENOrdering Facility: [facility] Address: [address] [place] [address] Performed By: #### 2 4325-3, 67823-0, 6-, 93653-0 ####[facility] [id number] [place] [address] [place] VITAMIN D 25 HYDROXYon 06-11 25-hydroxyvitamin D3 [Mass/Vol] 31.5 ng/mL 31.0 - 80.0 ng/mL [facility] CNPNon 05-07-2024 CNPN Telephone (FPUPDV) -- ADINA ESCOBAR I ([id number]) 1950 F Date Time Provider Department 05/07/24 [...] today at 9:20 am Rosario call back [phone] Thank you [phone] (home) [phone] (cell) Patient last appointment: 05/01/2024 Kavya Maximo Ramirez 05/07/2024 9:37 AM Signed Daughter Rosario called [...] GI Upset PROPOXYPHENE 06/23/2015 16 - Unknown GCCSPAK-ABQ-WYT REDUCTASE INHIBIT*06/22/2020 6 - Diarrhea 5 - [...] by mouth two times a day. - clotrimazole-betamethasone (LOTRISONE) cream Apply to affected [...] 8 hours as needed for nausea/vomiting. - rhszuqcvdh-okmmcmww-ibvmhw itzel (BREZTRI AEROSPHERE) 160-9-4.8 mcg/actuation HFA aerosol inhaler [...] 06/22/2020 04/17/2022 (more content not included)... Normal [facility] Absolute lymphocyte countOrd ered By: Mike Fraser on 12-13-2023 Lymphocytes Auto (Unsp spec) [#/Vol] 2.12 10*3/uL 0.83-4.51 [facility] Automated lymphocyte count a s percentage of total leukocytesOrdered By: Mike Fraser on 12-13-2023 Lymphocytes/100 WBC Auto (Unsp spec) 21.9 % 19-41 [facility] Basophil percentageOrdered B y: Mike Fraser on 12-13-2023 Basophil percentage 0-5 SEEN /hpf 0-5 [facility] Basophils/100 WBC (Bld) 0.4 % 0-1 [facility] Bilirubin [Mass/Vol] 0.30 mg/dL 0.20-1.00 [facility] Comment on above: For patients on eltr ombopag therapy, use of Dimension [place] TBIL is not recommended. Chloride [Moles/Vol] 113 mmol/L 98-107 [facility] Eosinophils/100 WBC (Bld) 2.0 % 0-5 [facility] Glucose [Mass/Vol] 92 mg/dL 74-106 [facility] Hemoglobin (Bld) [Mass/Vol] 8.6 g/dL 12.0-15.0 [facility] Monocytes/100 WBC (Bld) 8.2 % 0-10 [facility] Neutrophils (Bld) [#/Vol] 6.5 10*3/uL 2.0-7.7 [facility] Neutrophils/100 WBC (Bld) 67.1 % 47-70 [facility] Potassium [Moles/Vol] 3.7 mmol/L 3.5-5.1 [facility] Protein [Mass/Vol] 5.7 g/dL 6.4-8.2 [facility] Sodium [Moles/Vol] 144 mmol/L 136-145 [facility] WBC (Bld) [#/Vol] 9.7 10*3/uL 4.4-11.0 [facility] Bilirubin Test strip Ql (U)O rdered By: Mike Fraser on 12-13-2023 Bilirubin Ql (U) Negative Negative [facility] Determination of erythrocyte mean corpuscular volume (MCV)Ordered By: Mike Fraser on 12-13-2023 MCV (RBC) [Entitic vol] 86.4 fL 81-99 [facility] Erythrocyte distribution wid th ratioOrdered By: Mike Fraser on 12-13-2023 Erythrocyte distribution width (RBC) [Ratio] 17.0 % 11.6-14.6 [facility] Erythrocyte distribution wid th standard deviationOrdered By: Mike Fraser on 12-13-2023 Erythrocyte distribution width (RBC) [Entitic vol] 53.4 fL 35.1-43.9 [facility] Hematocrit Auto (Bld) [Volum e fraction]Ordered By: Mike Fraser on 12-13-2023 Hematocrit (Bld) [Volume fraction] 27.3 % 37-47 [facility] Immature granulocytes/100 WB C Auto (Bld)Ordered By: Mike Fraser on 12-13-2023 Immature granulocytes/100 WBC (Bld) 0.400 % 0.0-0.9 [facility] Comment on above: IG% - Immature Granu locytes (promyelocytes, myelocytes and metamyelocytes) > 1% indicates that a LEFT SHIFT is Present. Ketones Test strip Ql (U)Ord ered By: Mike Fraser on 12-13-2023 Ketones Ql (U) Negative Negative [facility] Laboratory - Chemistry and C hemistry - challengeOrdered By: Mike Fraser on 12-13-2023 Albumin/Globulin [Mass ratio] 0.9 {ratio} 0.9-2.4 [facility] ALP [Catalytic activity/Vol] 103 U/L 45-117 [facility] ALT [Catalytic activity/Vol] 34 U/L 13-56 [facility] CO2 [Moles/Vol] 26.0 mmol/L 21.0-32.0 [facility] Globulin (S) [Mass/Vol] 3.0 g/dL 2.2-4.2 [facility] Lipase [Catalytic activity/Vol] 94 U/L 13-75 [facility] Comment on above: Please note:LIPASE r evised reference range effective 22. New Lipase methodology. Expected to produce lower values than the previous assay method. NEW Reference Range: 13 - 75 U/L Urea nitrogen/Creatinine [Mass ratio] 10.1 mg/mg 10-20 [facility] Laboratory - Hematology and Cell countsOrdered By: Mike Fraser on 12-13-2023 MCH (RBC) [Entitic mass] 27.2 pg 27.0-32.0 [facility] MCHC (RBC) [Mass/Vol] 31.5 g/dL 32-36 [facility] Nucleated RBC/100 WBC (Bld) [Ratio] 0 % 0-5 [facility] Platelet mean volume (Bld) [Entitic vol] 10.7 fL 6.2-12.0 [facility] Platelets (Bld) [#/Vol] 310 10*3/uL 150-450 [facility] Mucus LM Ql (Urine sed)Order ed By: Mike Fraser on 12-13-2023 Mucus Ql (Urine sed) 0 SEEN /hpf [facility] Nitrite Test strip Ql (U)Ord ered By: Mike Fraser on 12-13-2023 Nitrite Ql (U) Negative Negative [facility] No Panel InformationOrdered By: Mike Fraser on 12-13-2023 Urine RBC 0 SEEN /hpf 0-5 [facility] Estimated Creatinine Clearance Calc 46.13 ml/min [facility] Estimated GFR (MDRD) Amer 80 mL/min >60 [facility] Comment on above: GFR Calc Estimated GFR (MDRD) Non-Af Amer 66 mL/min >60 [facility] Comment on above: Non- GFR Calc Protein Test strip Ql (U)Ord ered By: Mike Fraser on 12-13-2023 Protein Ql (U) Negative Negative [facility] RBC Auto (Bld) [#/Vol]Ordere d By: Mike Fraser on 12-13-2023 RBC (Bld) [#/Vol] 3.16 10*6/uL 4.2-5.4 [facility] Serum or plasma calcium franck urement (mass/volume)Ordered By: Mike Fraser on 12-13-2023 Calcium [Mass/Vol] 8.9 mg/dL 8.5-10.1 [facility] Serum or plasma creatinine m easurement (mass/volume)Ordered By: Mike Fraser on 12-13-2023 Creatinine [Mass/Vol] 0.90 mg/dL 0.55-1.02 [facility] Comment on above: The validity of the calculated GFR & GFRAA in patients over 70 years has not been determined. Clinical correlation is essential. Serum or plasma urea nitroge n measurement (mass/volume)Ordered By: Mike Fraser on 12-13-2023 Urea nitrogen [Mass/Vol] 9 mg/dL 7-18 [facility] Squamous epithelial cells de tection in urine sediment by light microscopyOrdered By: Mike Fraser on 12-13-2023 Epithelial cells.squamous LM Ql (Urine sed) 0-5 SEEN /hpf 5-10 [facility] Thin prep Papanicolaou smear with manual screeningOrdered By: Mike Fraser on 12-13-2023 Thin prep Papanicolaou smear with manual screening 2.7 g/dL 3.2-5.0 [facility] [facility] Th[facility] Papanicolaou smear with manual screening 20 U/L 15-37 [facility] Thin prep Papanicolaou smear with manual screening 5 5-15 [facility] Urine blood detectionOrdered By: Mike Fraser on 12-13-2023 RBC Ql (U) Negative Negative [facility] Urine clarityOrdered By: Priya Fraser on 12-13-2023 Clarity (U) Sl. Cloudy Clear [facility] Urine color determinationOrd ered By: Mike Fraser on 12-13-2023 Color (U) Straw Yellow [facility] Urine glucose detectionOrder ed By: Mike Fraser on 12-13-2023 Glucose Ql (U) Normal mg/dl Normal [facility] Urine leukocyte esterase det ection by dipstickOrdered By: Mike Fraser on 12-13-2023 Leukocyte esterase Test strip Ql (U) 25 /ul Negative [facility] Urine pHOrdered By: Mike de luna on 12-13-2023 pH (U) 7.0 [pH] 5.0 - 8.0 [facility] Urine sediment bacteria coun t by microscopy (number/high power field)Ordered By: Mike Fraser on 12-13-2023 Bacteria LM.HPF (Urine sed) [#/Area] 0 /[HPF] None Seen [facility] Urine specific gravity measu rementOrdered By: Mike Fraser on 12-13-2023 Specific gravity (U) [Rel density] 1.005 1.002-1.030 [facility] Urine urobilinogen measureme ntOrdered By: Mike Fraser on 12-13-2023 Urobilinogen Ql (U) Normal mg/dl Normal [facility] Absolute lymphocyte countOrd ered By: Aly Fragoso on 12-11-2023 Lymphocytes Auto (Unsp spec) [#/Vol] 1.81 10*3/uL 0.83-4.51 [facility] Automated lymphocyte count a s percentage of total leukocytesOrdered By: Aly Fragoso on 12-11-2023 Lymphocytes/100 WBC Auto (Unsp spec) 32.3 % 19-41 [facility] Basophil percentageOrdered B y: Aly Fragoso on 12-11-2023 Basophils/100 WBC (Bld) 0.9 % 0-1 [facility] Chloride [Moles/Vol] 114 mmol/L 98-107 [facility] Eosinophils/100 WBC (Bld) 2.7 % 0-5 [facility] Glucose [Mass/Vol] 125 mg/dL 74-106 [facility] Comment on above: Fasting Glucose resu lt from 100 to 125 mg/dL suggests IMPAIRED HOMEOSTASIS per A.D.A. criteria. Hemoglobin (Bld) [Mass/Vol] 7.8 g/dL 12.0-15.0 [facility] Monocytes/100 WBC (Bld) 11.6 % 0-10 [facility] Neutrophils (Bld) [#/Vol] 2.9 10*3/uL 2.0-7.7 [facility] Neutrophils/100 WBC (Bld) 52.3 % 47-70 [facility] Potassium [Moles/Vol] 3.2 mmol/L 3.5-5.1 [facility] Sodium [Moles/Vol] 145 mmol/L 136-145 [facility] WBC (Bld) [#/Vol] 5.6 10*3/uL 4.4-11.0 [facility] Determination of erythrocyte mean corpuscular volume (MCV)Ordered By: Aly Fragoso on 12-11-2023 MCV (RBC) [Entitic vol] 85.2 fL 81-99 [facility] Erythrocyte distribution wid th ratioOrdered By: Aly Fragoso on 12-11-2023 Erythrocyte distribution width (RBC) [Ratio] 16.3 % 11.6-14.6 [facility] Erythrocyte distribution wid th standard deviationOrdered By: Aly Fragoso on 12-11-2023 Erythrocyte distribution width (RBC) [Entitic vol] 51.0 fL 35.1-43.9 [facility] Hematocrit Auto (Bld) [Volum e fraction]Ordered By: Aly Fragoso on 12-11-2023 Hematocrit (Bld) [Volume fraction] 24.7 % 37-47 [facility] Immature granulocytes/100 WB C Auto (Bld)Ordered By: Aly Fragoso on 12-11-2023 Immature granulocytes/100 WBC (Bld) 0.200 % 0.0-0.9 [facility] Comment on above: IG% - Immature Granu locytes (promyelocytes, myelocytes and metamyelocytes) > 1% indicates that a LEFT SHIFT is Present. Laboratory - Chemistry and C hemistry - challengeOrdered By: Aly Fragoso on 12-11-2023 CO2 [Moles/Vol] 21.0 mmol/L 21.0-32.0 [facility] Urea nitrogen/Creatinine [Mass ratio] 2.4 mg/mg 10-20 [facility] Laboratory - Hematology and Cell countsOrdered By: Aly Fragoso on 12-11-2023 MCH (RBC) [Entitic mass] 26.9 pg 27.0-32.0 [facility] MCHC (RBC) [Mass/Vol] 31.6 g/dL 32-36 [facility] Nucleated RBC/100 WBC (Bld) [Ratio] 0 % 0-5 [facility] Platelet mean volume (Bld) [Entitic vol] 11.0 fL 6.2-12.0 [facility] Platelets (Bld) [#/Vol] 235 10*3/uL 150-450 [facility] No Panel InformationOrdered By: Aly Fragoso on 12-11-2023 Estimated Creatinine Clearance Calc 46.80 ml/min [facility] Estimated GFR (MDRD) Amer 88 mL/min >60 [facility] Comment on above: GFR Calc Estimated GFR (MDRD) Non-Af Amer 73 mL/min >60 [facility] Comment on above: Non- GFR Calc RBC Auto (Bld) [#/Vol]Ordere d By: Aly Fragoso on 12-11-2023 RBC (Bld) [#/Vol] 2.90 10*6/uL 4.2-5.4 [facility] Serum or plasma calcium franck urement (mass/volume)Ordered By: Aly Fragoso on 12-11-2023 Calcium [Mass/Vol] 7.8 mg/dL 8.5-10.1 [facility] Serum or plasma creatinine m easurement (mass/volume)Ordered By: Aly Fragoso on 12-11-2023 Creatinine [Mass/Vol] 0.82 mg/dL 0.55-1.02 [facility] Comment on above: The validity of the calculated GFR & GFRAA in patients over 70 years has not been determined. Clinical correlation is essential. Serum or plasma urea nitroge n measurement (mass/volume)Ordered By: Aly Fragoso on 12-11-2023 Urea nitrogen [Mass/Vol] 2 mg/dL 7-18 [facility] Thin prep Papanicolaou smear with manual screeningOrdered By: Aly Fragoso on 12-11-2023 Thin prep Papanicolaou smear with manual screening 10 5-15 [facility] Iron measurement (mass/mass) Ordered By: Aly Fragoso on 12-10-2023 Iron (Unsp spec) [Mass/Mass] 28 ug/dL 50-170 [facility] Laboratory - Chemistry and C hemistry - challengeOrdered By: Aly Fragoso on 12-10-2023 Cobalamin (Vitamin B12) [Mass/Vol] 741 pg/mL 211-911 [facility] Ferritin [Mass/Vol] 15 ng/mL 8-252 [facility] No Panel InformationOrdered By: Aly Fragoso on 12-10-2023 Total Iron Binding Capacity 350 ug/dL 250-450 [facility] Serum or plasma iron saturat ion measurement (mass fraction)Ordered By: Aly Fragoso on 12-10-2023 Iron saturation [Mass fraction] 8.0 % 15.0-55.0 [facility] Basophil percentageOrdered B y: Jessica White on 12-09-2023 Bilirubin [Mass/Vol] 0.70 mg/dL 0.20-1.00 [facility] Comment on above: For patients on eltr ombopag therapy, use of Dimension [place] TBIL is not recommended. Protein [Mass/Vol] 6.0 g/dL 6.4-8.2 [facility] Laboratory - Chemistry and C hemistry - challengeOrdered By: Jessica Thomas on 12-09-2023 Albumin/Globulin [Mass ratio] 0.9 {ratio} 0.9-2.4 [facility] ALP [Catalytic activity/Vol] 139 U/L 45-117 [facility] ALT [Catalytic activity/Vol] 77 U/L 13-56 [facility] Globulin (S) [Mass/Vol] 3.2 g/dL 2.2-4.2 [facility] Thin prep Papanicolaou smear with manual screeningOrdered By: Jessica Thomas on 12-09-2023 Thin prep Papanicolaou smear with manual screening 2.8 g/dL 3.2-5.0 [facility] Thin prep Papanicolaou smear with manual screening 54 U/L 15-37 [facility] Clostridioides difficile nuc leic acid assay by PCROrdered By: Jessica Martha on 12-08-2023 C. difficile DNA RENATA+probe Ql (Unsp spec) [facility] Basophil percentageOrdered B y: Jessica Thomas on 12-07-2023 Basophil percentage 3.1 mg/dL 2.5-4.9 [facility] Laboratory - Chemistry and C hemistry - challengeOrdered By: Jessica Thomas on 12-07-2023 Magnesium [Mass/Vol] 1.9 mg/dL 1.6-2.6 [facility] Laboratory - CoagulationOrde red By: Jessica Thomas on 12-07-2023 INR Coag (Bld) [Relative time] 1.1 {INR} [facility] PT Coag (PPP) [Time] 13.9 s 11.7-14.9 [facility] Respiratory pathogens detect ion panel by molecular detection methodOrdered By: Jessica Martha on 12-07-2023 Respiratory pathogens DNA and RNA panel RENATA+probe (Resp) [facility] Absolute lymphocyte countOrd ered By: Federico Monique on 12-06-2023 Lymphocytes Auto (Unsp spec) [#/Vol] 3.30 10*3/uL 0.83-4.51 [facility] Automated lymphocyte count a s percentage of total leukocytesOrdered By: Federico Monique on 12-06-2023 Lymphocytes/100 WBC Auto (Unsp spec) 44.8 % 19-41 [facility] Basophil percentageOrdered B y: Federico Monique on 12-06-2023 Lactate [Moles/Vol] 1.2 mmol/L 0.4-2.0 [facility] Basophils/100 WBC (Bld) 0.8 % 0-1 [facility] Bilirubin [Mass/Vol] 0.50 mg/dL 0.20-1.00 [facility] Comment on above: For patients on eltr ombopag therapy, use of Dimension [place] TBIL is not recommended. Chloride [Moles/Vol] 113 mmol/L 98-107 [facility] Eosinophils/100 WBC (Bld) 0.8 % 0-5 [facility] Glucose [Mass/Vol] 100 mg/dL 74-106 [facility] Comment on above: Fasting Glucose resu lt from 100 to 125 mg/dL suggests IMPAIRED HOMEOSTASIS per A.D.A. criteria. Hemoglobin (Bld) [Mass/Vol] 10.1 g/dL 12.0-15.0 [facility] Monocytes/100 WBC (Bld) 8.4 % 0-10 [facility] Neutrophils (Bld) [#/Vol] 3.3 10*3/uL 2.0-7.7 [facility] Neutrophils/100 WBC (Bld) 44.7 % 47-70 [facility] Potassium [Moles/Vol] 4.7 mmol/L 3.5-5.1 [facility] Comment on above: Moderate Hemolysis, Result may be falsely increased. Protein [Mass/Vol] 7.4 g/dL 6.4-8.2 [facility] Sodium [Moles/Vol] 141 mmol/L 136-145 [facility] WBC (Bld) [#/Vol] 7.4 10*3/uL 4.4-11.0 [facility] Blood platelet adequacy dete ction by light microscopyOrdered By: Federico Monique on 12-06-2023 Platelets LM Ql (Bld) ADEQUATE ADEQ [facility] Determination of erythrocyte mean corpuscular volume (MCV)Ordered By: Federico Monique on 12-06-2023 MCV (RBC) [Entitic vol] 85.2 fL 81-99 [facility] Erythrocyte distribution wid th ratioOrdered By: Federico Monique on 12-06-2023 Erythrocyte distribution width (RBC) [Ratio] 16.6 % 11.6-14.6 [facility] Erythrocyte distribution wid th standard deviationOrdered By: Federico Monique on 12-06-2023 Erythrocyte distribution width (RBC) [Entitic vol] 51.6 fL 35.1-43.9 [facility] Hematocrit Auto (Bld) [Volum e fraction]Ordered By: Federico Monique on 12-06-2023 Hematocrit (Bld) [Volume fraction] 32.2 % 37-47 [facility] Immature granulocytes/100 WB C Auto (Bld)Ordered By: Federico Monique on 12-06-2023 Immature granulocytes/100 WBC (Bld) 0.500 % 0.0-0.9 [facility] Comment on above: IG% - Immature Granu locytes (promyelocytes, myelocytes and metamyelocytes) > 1% indicates that a LEFT SHIFT is Present. Laboratory - Chemistry and C hemistry - challengeOrdered By: Federico Monique on 12-06-2023 Albumin/Globulin [Mass ratio] 0.9 {ratio} 0.9-2.4 [facility] ALP [Catalytic activity/Vol] 78 U/L 45-117 [facility] ALT [Catalytic activity/Vol] 22 U/L 13-56 [facility] CO2 [Moles/Vol] 22.0 mmol/L 21.0-32.0 [facility] Globulin (S) [Mass/Vol] 3.9 g/dL 2.2-4.2 [facility] Lipase [Catalytic activity/Vol] 36 U/L 13-75 [facility] Comment on above: Please note:LIPASE r evised reference range effective 22. New Lipase methodology. Expected to produce lower values than the previous assay method. NEW Reference Range: 13 - 75 U/L Urea nitrogen/Creatinine [Mass ratio] 10.8 mg/mg 10-20 [facility] Laboratory - Hematology and Cell countsOrdered By: Federico Monique on 12-06-2023 Anisocytosis Ql (Bld) RARE [facility] MCH (RBC) [Entitic mass] 26.7 pg 27.0-32.0 [facility] MCHC (RBC) [Mass/Vol] 31.4 g/dL 32-36 [facility] Nucleated RBC/100 WBC (Bld) [Ratio] 0 % 0-5 [facility] Platelet mean volume (Bld) [Entitic vol] 11.1 fL 6.2-12.0 [facility] Platelets (Bld) [#/Vol] 281 10*3/uL 150-450 [facility] No Panel InformationOrdered By: Federico Monique on 12-06-2023 Estimated Creatinine Clearance Calc 34.57 ml/min [facility] Estimated GFR (MDRD) Amer 62 mL/min >60 [facility] Comment on above: GFR Calc Estimated GFR (MDRD) Non-Af Amer 51 mL/min >60 [facility] Comment on above: Non- GFR Calc Ovalocyte detectionOrdered B y: Federico Monique on 12-06-2023 Ovalocytes LM Ql (Bld) RARE [facility] RBC Auto (Bld) [#/Vol]Ordere d By: Federico Monique on 12-06-2023 RBC (Bld) [#/Vol] 3.78 10*6/uL 4.2-5.4 [facility] RBC morphologyOrdered By: Rodri Monique on 12-06-2023 RBC morphology finding Nom (Bld) N CHROM NORMAL NORM C&C [facility] Serum or plasma calcium franck urement (mass/volume)Ordered By: Federico Monique on 12-06-2023 Calcium [Mass/Vol] 9.5 mg/dL 8.5-10.1 [facility] Serum or plasma creatinine m easurement (mass/volume)Ordered By: Federico Monique on 12-06-2023 Creatinine [Mass/Vol] 1.11 mg/dL 0.55-1.02 [facility] Comment on above: The validity of the calculated GFR & GFRAA in patients over 70 years has not been determined. Clinical correlation is essential. Serum or plasma urea nitroge n measurement (mass/volume)Ordered By: Federico Monique on 12-06-2023 Urea nitrogen [Mass/Vol] 12 mg/dL 7-18 [facility] Thin prep Papanicolaou smear with manual screeningOrdered By: Federico Monique on 12-06-2023 Thin prep Papanicolaou smear with manual screening 3.5 g/dL 3.2-5.0 [facility] Thin prep Papanicolaou smear with manual screening 43 U/L 15-37 [facility] Comment on above: Moderate Hemolysis, Result may be falsely increased. Thin prep Papanicolaou smear with manual screening 6 5-15 [facility] Basic metabolic 2000 panelon 07-24-2023 Anion gap [Moles/Vol] 16 mmol/L 9 - 18 mmol/L [facility] Calcium [Mass/Vol] 9.6 mg/dL 8.5 - 10. 2 mg/dL [facility] Chloride [Moles/Vol] 105 mmol/L 97 - 10 5 mmol/L [facility] CO2 [Moles/Vol] 19 mmol/L Low 22 - 30 mmol/L [facility] Creatinine [Mass/Vol] 1.16 mg/dL High 0.58 - 0.96 mg/dL [facility] Estimated Glomerular Filtration Rate 50 mL/min/1.73m Low >=60 mL/min/1.73 m [facility] Glucose [Mass/Vol] 108 mg/dL High 74 - 99 mg/dL [facility] Potassium [Moles/Vol] 4.4 mmol/L 3.7 - 5.1 mmol/L [facility] Sodium [Moles/Vol] 140 mmol/L 136 - 144 mmol/L [facility] Urea nitrogen [Mass/Vol] 14 mg/dL 7 - 21 mg/dL [facility] CBC panel Auto (Bld)on 07-24 Erythrocyte distribution width (RBC) [Ratio] 15.0 % 11.5 - 15.0 % [facility] Hematocrit (Bld) [Volume fraction] 34.3 % Low 36.0 - 46.0 % [facility] Hemoglobin (Bld) [Mass/Vol] 11.0 g/dL Low 11.5 - 15.5 g/dL [facility] MCH (RBC) [Entitic mass] 28.4 pg 26.0 - 34.0 pg [facility] MCHC (RBC) [Mass/Vol] 32.1 g/dL 30.5 - 36.0 g/dL [facility] MCV (RBC) [Entitic vol] 88.4 fL 80.0 - 100.0 fL [facility] Nucleated RBC (Bld) [#/Vol] <0.01 k/uL [facility] Platelet mean volume (Bld) [Entitic vol] 10.3 fL 9.0 - 12.7 fL [facility] Platelets (Bld) [#/Vol] 427 10*3/uL High 150 - 400 k/uL [facility] RBC (Bld) [#/Vol] 3.88 10*6/uL Low 3.90 - 5.2 0 m/uL [facility] WBC (Bld) [#/Vol] 9.61 10*3/uL 3.70 - 11.00 k/uL [facility] TSH BLDon 07-24-2023 TSH Qn 2.150 m[IU]/L 0.270 - 4.200 mIU/L [facility] XR CHEST 2V FRONTAL/LATon [facility] Basophil percentageOrdered B y: Matt Dominguez on 04-01-2023 Lactate [Moles/Vol] 1.2 mmol/L 0.4-2.0 [facility] Basophil percentage 0 SEEN /hpf 0-5 [facility] Bilirubin Test strip Ql (U)O rdered By: Matt Dominguez on 04-01-2023 Bilirubin Ql (U) Negative Negative [facility] Ketones Test strip Ql (U)Ord ered By: Matt Dominguez on 04-01-2023 Ketones Ql (U) 5 mg/dl Negative [facility] Mucus LM Ql (Urine sed)Order ed By: Matt Dominguez on 04-01-2023 Mucus Ql (Urine sed) 0 SEEN /hpf [facility] Nitrite Test strip Ql (U)Ord ered By: Matt Dominguez on 04-01-2023 Nitrite Ql (U) Negative Negative [facility] Protein Test strip Ql (U)Ord ered By: Matt Dominguez on 04-01-2023 Protein Ql (U) 15 mg/dl Negative [facility] Squamous epithelial cells de tection in urine sediment by light microscopyOrdered By: Matt Dominguez on 04-01-2023 Epithelial cells.squamous LM Ql (Urine sed) 0 SEEN /hpf 5-10 [facility] Urine blood detectionOrdered By: Matt Dominguez on 04-01-2023 RBC Ql (U) 10 /ul Negative [facility] RBC Ql (U) 0 SEEN /hpf 0-5 [facility] Urine clarityOrdered By: Madi Dominguez on 04-01-2023 Clarity (U) Clear Clear [facility] Urine color determinationOrd ered By: Matt Dominguez on 04-01-2023 Color (U) Yellow Yellow [facility] Urine glucose detectionOrder ed By: Matt Dominguez on 04-01-2023 Glucose Ql (U) Normal mg/dl Normal [facility] Urine leukocyte esterase det ection by dipstickOrdered By: Matt Dominguez on 04-01-2023 Leukocyte esterase Test strip Ql (U) 25 /ul Negative [facility] Urine pHOrdered By: Matt ramos on 04-01-2023 pH (U) 7.0 [pH] 5.0 - 8.0 [facility] Urine sediment bacteria coun t by microscopy (number/high power field)Ordered By: Matt Dominguez on 04-01-2023 Bacteria LM.HPF (Urine sed) [#/Area] 0 /[HPF] None Seen [facility] Urine specific gravity measu rementOrdered By: Matt Dominguez on 04-01-2023 Specific gravity (U) [Rel density] 1.005 1.002-1.030 [facility] Urobilinogen Auto test strip Ql (U)Ordered By: Matt Dominguez on 04-01-2023 Urobilinogen Ql (U) Normal mg/dl Normal [facility] Absolute lymphocyte countOrd ered By: Matt Dominguez on 03-31-2023 Lymphocytes Auto (Unsp spec) [#/Vol] 3.32 10*3/uL 0.83-4.51 [facility] Basophil percentageOrdered B y: Matt Dominguez on 03-31-2023 Basophils/100 WBC (Bld) 0.3 % 0-1 [facility] Bilirubin [Mass/Vol] 0.70 mg/dL 0.20-1.00 [facility] Comment on above: For patients on eltr ombopag therapy, use of Dimension [place] TBIL is not recommended. Chloride [Moles/Vol] 103 mmol/L 98-107 [facility] Eosinophils/100 WBC (Bld) 0.2 % 0-5 [facility] Glucose [Mass/Vol] 124 mg/dL 74-106 [facility] Comment on above: Fasting Glucose resu lt from 100 to 125 mg/dL suggests IMPAIRED HOMEOSTASIS per A.D.A. criteria. Neutrophils (Bld) [#/Vol] 6.2 10*3/uL 2.0-7.7 [facility] Neutrophils/100 WBC (Bld) 59.3 % 47-70 [facility] Potassium [Moles/Vol] 3.4 mmol/L 3.5-5.1 [facility] Protein [Mass/Vol] 7.5 g/dL 6.4-8.2 [facility] Sodium [Moles/Vol] 136 mmol/L 136-145 [facility] WBC (Bld) [#/Vol] 10.4 10*3/uL 4.4-11.0 [facility] Blood erythrocytes count (nu mber/volume)Ordered By: Matt Dominguez on 03-31-2023 RBC (Bld) [#/Vol] 3.95 10*6/uL 4.2-5.4 [facility] Blood hemoglobin measurement (mass/volume)Ordered By: Matt Dominguez on 03-31-2023 Hemoglobin (Bld) [Mass/Vol] 11.2 g/dL 12.0-15.0 [facility] Blood lymphocytes/100 leukoc ytesOrdered By: Matt Dominguez on 03-31-2023 Lymphocytes/100 WBC (Bld) 31.9 % 19-41 [facility] Blood monocytes/100 leukocyt esOrdered By: Matt Dominguez on 03-31-2023 Monocytes/100 WBC (Bld) 7.2 % 0-10 [facility] Blood platelet mean volumeOr dered By: Matt Dominguez on 03-31-2023 Platelet mean volume (Bld) [Entitic vol] 10.2 fL 6.2-12.0 [facility] Determination of erythrocyte mean corpuscular volume (MCV)Ordered By: Matt Dominguez on 03-31-2023 MCV (RBC) [Entitic vol] 87.8 fL 81-99 [facility] Direct bilirubinOrdered By: Matt Dominguez on 03-31-2023 Bilirubin.direct [Mass/Vol] 0.20 mg/dL 0.00-0.30 [facility] Hematocrit Auto (Bld) [Volum e fraction]Ordered By: Matt Dominguez on 03-31-2023 Hematocrit (Bld) [Volume fraction] 34.7 % 37-47 [facility] Laboratory - Chemistry and C hemistry - challengeOrdered By: Matt Dominguez on 03-31-2023 ALP [Catalytic activity/Vol] 128 U/L 45-117 [facility] ALT [Catalytic activity/Vol] 24 U/L 13-56 [facility] CO2 [Moles/Vol] 20.0 mmol/L 21.0-32.0 [facility] Globulin (S) [Mass/Vol] 3.9 g/dL 2.2-4.2 [facility] Lipase [Catalytic activity/Vol] 21 U/L 13-75 [facility] Comment on above: Please note:LIPASE r evised reference range effective 22. New Lipase methodology. Expected to produce lower values than the previous assay method. NEW Reference Range: 13 - 75 U/L Urea nitrogen/Creatinine [Mass ratio] 6.9 mg/mg 10-20 [facility] Laboratory - Hematology and Cell countsOrdered By: Matt Dominguez on 03-31-2023 Erythrocyte distribution width (RBC) [Entitic vol] 44.0 fL 35.1-43.9 [facility] Erythrocyte distribution width (RBC) [Ratio] 13.7 % 11.6-14.6 [facility] Immature granulocytes/100 WBC (Bld) 1.100 % 0.0-0.9 [facility] Comment on above: IG% - Immature Granu locytes (promyelocytes, myelocytes and metamyelocytes) > 1% indicates that a LEFT SHIFT is Present. MCH (RBC) [Entitic mass] 28.4 pg 27.0-32.0 [facility] Nucleated RBC/100 WBC (Bld) [Ratio] 0 % 0-5 [facility] MCHC Auto (RBC) [Mass/Vol]Or dered By: Matt Dominguez on 03-31-2023 MCHC (RBC) [Mass/Vol] 32.3 g/dL 32-36 [facility] No Panel InformationOrdered By: Matt Dominguez on 03-31-2023 Estimated Creatinine Clearance Calc 29.72 ml/min [facility] Estimated GFR (MDRD) Amer 51 mL/min >60 [facility] Comment on above: GFR Calc Estimated GFR (MDRD) Non-Af Amer 42 mL/min >60 [facility] Comment on above: Non- GFR Calc Platelets bldOrdered By: Madi Dominguez on 03-31-2023 Platelets (Bld) [#/Vol] 464 10*3/uL 150-450 [facility] Serum or plasma albumin franck urement (mass/volume)Ordered By: Matt Dominguez on 03-31-2023 Albumin [Mass/Vol] 3.6 g/dL 3.2-5.0 [facility] Serum or plasma calcium franck urement (mass/volume)Ordered By: Matt Dominguez on 03-31-2023 Calcium [Mass/Vol] 9.3 mg/dL 8.5-10.1 [facility] Serum or plasma creatinine m easurement (mass/volume)Ordered By: Matt Dominguez on 03-31-2023 Creatinine [Mass/Vol] 1.31 mg/dL 0.55-1.02 [facility] Comment on above: The validity of the calculated GFR & GFRAA in patients over 70 years has not been determined. Clinical correlation is essential. Serum or plasma urea nitroge n measurement (mass/volume)Ordered By: Matt Dominguez on 03-31-2023 Urea nitrogen [Mass/Vol] 9 mg/dL 7-18 [facility] Thin prep Papanicolaou smear with manual screeningOrdered By: Matt Dominguez on 03-31-2023 Thin prep Papanicolaou smear with manual screening 19 U/L 15-37 [facility] Thin prep Papanicolaou smear with manual screening 13 5-15 [facility] Absolute lymphocyte countOrd ered By: Ivon Oliver on 03-18-2023 Lymphocytes Auto (Unsp spec) [#/Vol] 2.21 10*3/uL 0.83-4.51 [facility] Basophil percentageOrdered B y: Ivon Oliver on 03-18-2023 Basophils/100 WBC (Bld) 0.7 % 0-1 [facility] Bilirubin [Mass/Vol] 1.00 mg/dL 0.20-1.00 [facility] Comment on above: For patients on eltr ombopag therapy, use of Dimension [place] TBIL is not recommended. Chloride [Moles/Vol] 111 mmol/L 98-107 [facility] Eosinophils/100 WBC (Bld) 1.9 % 0-5 [facility] Glucose [Mass/Vol] 84 mg/dL 74-106 [facility] Neutrophils (Bld) [#/Vol] 4.4 10*3/uL 2.0-7.7 [facility] Neutrophils/100 WBC (Bld) 59.2 % 47-70 [facility] Potassium [Moles/Vol] 3.6 mmol/L 3.5-5.1 [facility] Protein [Mass/Vol] 6.1 g/dL 6.4-8.2 [facility] Sodium [Moles/Vol] 138 mmol/L 136-145 [facility] WBC (Bld) [#/Vol] 7.5 10*3/uL 4.4-11.0 [facility] Blood erythrocytes count (nu mber/volume)Ordered By: Ivon Oliver on 03-18-2023 RBC (Bld) [#/Vol] 3.15 10*6/uL 4.2-5.4 [facility] Blood hemoglobin measurement (mass/volume)Ordered By: Ivon Oliver on 03-18-2023 Hemoglobin (Bld) [Mass/Vol] 9.1 g/dL 12.0-15.0 [facility] Blood lymphocytes/100 leukoc ytesOrdered By: Ivon Oliver on 03-18-2023 Lymphocytes/100 WBC (Bld) 29.6 % 19-41 [facility] Blood monocytes/100 leukocyt esOrdered By: Ivon Oliver on 03-18-2023 Monocytes/100 WBC (Bld) 8.2 % 0-10 [facility] Blood platelet mean volumeOr dered By: Ivon Oliver on 03-18-2023 Platelet mean volume (Bld) [Entitic vol] 11.0 fL 6.2-12.0 [facility] Determination of erythrocyte mean corpuscular volume (MCV)Ordered By: Ivon Oliver on 03-18-2023 MCV (RBC) [Entitic vol] 92.1 fL 81-99 [facility] Hematocrit Auto (Bld) [Volum e fraction]Ordered By: Ivon Oliver on 03-18-2023 Hematocrit (Bld) [Volume fraction] 29.0 % 37-47 [facility] Laboratory - Chemistry and C hemistry - challengeOrdered By: Ivon Oliver on 03-18-2023 ALP [Catalytic activity/Vol] 158 U/L 45-117 [facility] ALT [Catalytic activity/Vol] 101 U/L 13-56 [facility] CO2 [Moles/Vol] 21.0 mmol/L 21.0-32.0 [facility] Globulin (S) [Mass/Vol] 3.4 g/dL 2.2-4.2 [facility] Urea nitrogen/Creatinine [Mass ratio] 8.0 mg/mg 10-20 [facility] Laboratory - Hematology and Cell countsOrdered By: Ivon Oliver on 03-18-2023 Erythrocyte distribution width (RBC) [Entitic vol] 48.2 fL 35.1-43.9 [facility] Erythrocyte distribution width (RBC) [Ratio] 14.3 % 11.6-14.6 [facility] Immature granulocytes/100 WBC (Bld) 0.400 % 0.0-0.9 [facility] Comment on above: IG% - Immature Granu locytes (promyelocytes, myelocytes and metamyelocytes) > 1% indicates that a LEFT SHIFT is Present. MCH (RBC) [Entitic mass] 28.9 pg 27.0-32.0 [facility] Nucleated RBC/100 WBC (Bld) [Ratio] 0 % 0-5 [facility] MCHC Auto (RBC) [Mass/Vol]Or dered By: Ivon Oliver on 03-18-2023 MCHC (RBC) [Mass/Vol] 31.4 g/dL 32-36 [facility] No Panel InformationOrdered By: Ivon Oliver on 03-18-2023 Estimated Creatinine Clearance Calc 44.25 ml/min [facility] Estimated GFR (MDRD) Amer 82 mL/min >60 [facility] Comment on above: GFR Calc Estimated GFR (MDRD) Non-Af Amer 68 mL/min >60 [facility] Comment on above: Non- GFR Calc Platelets bldOrdered By: Neetu Oliver on 03-18-2023 Platelets (Bld) [#/Vol] 281 10*3/uL 150-450 [facility] Serum or plasma albumin franck urement (mass/volume)Ordered By: Ivon Oliver on 03-18-2023 Albumin [Mass/Vol] 2.7 g/dL 3.2-5.0 [facility] Serum or plasma albumin/glob ulin mass ratioOrdered By: Ivon Oliver on 03-18-2023 Albumin/Globulin [Mass ratio] 0.8 {ratio} 0.9-2.4 [facility] Serum or plasma calcium franck urement (mass/volume)Ordered By: Ivon Oliver on 03-18-2023 Calcium [Mass/Vol] 8.4 mg/dL 8.5-10.1 [facility] Serum or plasma creatinine m easurement (mass/volume)Ordered By: Ivon Oliver on 03-18-2023 Creatinine [Mass/Vol] 0.88 mg/dL 0.55-1.02 [facility] Comment on above: The validity of the calculated GFR & GFRAA in patients over 70 years has not been determined. Clinical correlation is essential. Serum or plasma urea nitroge n measurement (mass/volume)Ordered By: Ivon Oliver on 03-18-2023 Urea nitrogen [Mass/Vol] 7 mg/dL 7-18 [facility] Thin prep Papanicolaou smear with manual screeningOrdered By: Ivon Oliver on 03-18-2023 Thin prep Papanicolaou smear with manual screening 81 U/L 15-37 [facility] Thin prep Papanicolaou smear with manual screening 6 5-15 [facility] Absolute lymphocyte countOrd ered By: Jose Stanton on 03-16-2023 Lymphocytes Auto (Unsp spec) [#/Vol] 3.41 10*3/uL 0.83-4.51 [facility] Basophil percentageOrdered B y: Jose Stanton on 03-16-2023 Basophil percentage 0-5 SEEN /hpf 0-5 [facility] Basophils/100 WBC (Bld) 1.1 % 0-1 [facility] Bilirubin [Mass/Vol] 0.60 mg/dL 0.20-1.00 [facility] Comment on above: For patients on eltr ombopag therapy, use of Dimension [place] TBIL is not recommended. Chloride [Moles/Vol] 109 mmol/L 98-107 [facility] Eosinophils/100 WBC (Bld) 1.1 % 0-5 [facility] Glucose [Mass/Vol] 100 mg/dL 74-106 [facility] Comment on above: Fasting Glucose resu lt from 100 to 125 mg/dL suggests IMPAIRED HOMEOSTASIS per A.D.A. criteria. Neutrophils (Bld) [#/Vol] 4.1 10*3/uL 2.0-7.7 [facility] Neutrophils/100 WBC (Bld) 48.5 % 47-70 [facility] Potassium [Moles/Vol] 4.1 mmol/L 3.5-5.1 [facility] Protein [Mass/Vol] 7.5 g/dL 6.4-8.2 [facility] Sodium [Moles/Vol] 139 mmol/L 136-145 [facility] WBC (Bld) [#/Vol] 8.4 10*3/uL 4.4-11.0 [facility] Bilirubin Test strip Ql (U)O rdered By: Jose Stanton on 03-16-2023 Bilirubin Ql (U) Negative Negative [facility] Blood erythrocytes count (nu mber/volume)Ordered By: Jose Stanton on 03-16-2023 RBC (Bld) [#/Vol] 3.96 10*6/uL 4.2-5.4 [facility] Blood hemoglobin measurement (mass/volume)Ordered By: Jose Stanton on 03-16-2023 Hemoglobin (Bld) [Mass/Vol] 11.4 g/dL 12.0-15.0 [facility] Blood lymphocytes/100 leukoc ytesOrdered By: Jose Stanton on 03-16-2023 Lymphocytes/100 WBC (Bld) 40.6 % 19-41 [facility] Blood monocytes/100 leukocyt esOrdered By: Jose Stanton on 03-16-2023 Monocytes/100 WBC (Bld) 8.3 % 0-10 [facility] Blood platelet mean volumeOr dered By: Jose Stanton on 03-16-2023 Platelet mean volume (Bld) [Entitic vol] 10.0 fL 6.2-12.0 [facility] Determination of erythrocyte mean corpuscular volume (MCV)Ordered By: Jose Stanton on 03-16-2023 MCV (RBC) [Entitic vol] 89.4 fL 81-99 [facility] Hematocrit Auto (Bld) [Volum e fraction]Ordered By: Jose Stanton on 03-16-2023 Hematocrit (Bld) [Volume fraction] 35.4 % 37-47 [facility] Ketones Test strip Ql (U)Ord ered By: Jose Stanton on 03-16-2023 Ketones Ql (U) Negative Negative [facility] Laboratory - Chemistry and C hemistry - challengeOrdered By: Jose Stanton on 03-16-2023 ALP [Catalytic activity/Vol] 105 U/L 45-117 [facility] ALT [Catalytic activity/Vol] 18 U/L 13-56 [facility] CO2 [Moles/Vol] 23.0 mmol/L 21.0-32.0 [facility] Globulin (S) [Mass/Vol] 3.9 g/dL 2.2-4.2 [facility] Urea nitrogen/Creatinine [Mass ratio] 12.1 mg/mg 10-20 [facility] Laboratory - Hematology and Cell countsOrdered By: Jose Stanton on 03-16-2023 Erythrocyte distribution width (RBC) [Entitic vol] 49.0 fL 35.1-43.9 [facility] Erythrocyte distribution width (RBC) [Ratio] 14.7 % 11.6-14.6 [facility] Immature granulocytes/100 WBC (Bld) 0.400 % 0.0-0.9 [facility] Comment on above: IG% - Immature Granu locytes (promyelocytes, myelocytes and metamyelocytes) > 1% indicates that a LEFT SHIFT is Present. MCH (RBC) [Entitic mass] 28.8 pg 27.0-32.0 [facility] Nucleated RBC/100 WBC (Bld) [Ratio] 0 % 0-5 [facility] MCHC Auto (RBC) [Mass/Vol]Or dered By: Jose Stanton on 03-16-2023 MCHC (RBC) [Mass/Vol] 32.2 g/dL 32-36 [facility] Mucus LM Ql (Urine sed)Order ed By: Jose Stanton on 03-16-2023 Mucus Ql (Urine sed) 0 SEEN /hpf [facility] Nitrite Test strip Ql (U)Ord ered By: Jose Stanton on 03-16-2023 Nitrite Ql (U) Negative Negative [facility] No Panel InformationOrdered By: Jose Stanton on 03-16-2023 Estimated Creatinine Clearance Calc 26.13 ml/min [facility] Estimated GFR (MDRD) Amer 44 mL/min >60 [facility] Comment on above: GFR Calc Estimated GFR (MDRD) Non-Af Amer 37 mL/min >60 [facility] Comment on above: Non- GFR Calc Platelets bldOrdered By: Sania Stanton on 03-16-2023 Platelets (Bld) [#/Vol] 361 10*3/uL 150-450 [facility] Protein Test strip Ql (U)Ord ered By: Jose Stanton on 03-16-2023 Protein Ql (U) Negative Negative [facility] Serum or plasma albumin franck urement (mass/volume)Ordered By: Jose Stanton on 03-16-2023 Albumin [Mass/Vol] 3.6 g/dL 3.2-5.0 [facility] Serum or plasma albumin/glob ulin mass ratioOrdered By: Jose Stanton on 03-16-2023 Albumin/Globulin [Mass ratio] 0.9 {ratio} 0.9-2.4 [facility] Serum or plasma calcium franck urement (mass/volume)Ordered By: Jose Stanton on 03-16-2023 Calcium [Mass/Vol] 9.0 mg/dL 8.5-10.1 [facility] Serum or plasma creatinine m easurement (mass/volume)Ordered By: Jose Stanton on 03-16-2023 Creatinine [Mass/Vol] 1.49 mg/dL 0.55-1.02 [facility] Comment on above: The validity of the calculated GFR & GFRAA in patients over 70 years has not been determined. Clinical correlation is essential. Serum or plasma urea nitroge n measurement (mass/volume)Ordered By: Jose Stanton on 03-16-2023 Urea nitrogen [Mass/Vol] 18 mg/dL 7-18 [facility] Squamous epithelial cells de tection in urine sediment by light microscopyOrdered By: Jose Stanton on 03-16-2023 Epithelial cells.squamous LM Ql (Urine sed) 0 SEEN /hpf 5-10 [facility] Thin prep Papanicolaou smear with manual screeningOrdered By: Jose Stanton on 03-16-2023 Thin prep Papanicolaou smear with manual screening 18 U/L 15-37 [facility] Thin prep Papanicolaou smear with manual screening 7 5-15 [facility] Urine blood detectionOrdered By: Jose Stanton on 03-16-2023 RBC Ql (U) Negative Negative [facility] RBC Ql (U) 0 SEEN /hpf 0-5 [facility] Urine clarityOrdered By: Sania Stanton on 03-16-2023 Clarity (U) Clear Clear [facility] Urine color determinationOrd ered By: Jose Stanton on 03-16-2023 Color (U) Yellow Yellow [facility] Urine glucose detectionOrder ed By: Jose Stanton on 03-16-2023 Glucose Ql (U) Normal mg/dl Normal [facility] Urine leukocyte esterase det ection by dipstickOrdered By: Jose Stanton on 03-16-2023 Leukocyte esterase Test strip Ql (U) 25 /ul Negative [facility] Urine pHOrdered By: Jose Stanton on 03-16-2023 pH (U) 6.0 [pH] 5.0 - 8.0 [facility] Urine sediment bacteria coun t by microscopy (number/high power field)Ordered By: Jose Stanton on 03-16-2023 Bacteria LM.HPF (Urine sed) [#/Area] 0 /[HPF] None Seen [facility] Urine specific gravity measu rementOrdered By: Jose Stanton on 03-16-2023 Specific gravity (U) [Rel density] 1.010 1.002-1.030 [facility] Urobilinogen Auto test strip Ql (U)Ordered By: Jose Stanton on 03-16-2023 Urobilinogen Ql (U) Normal mg/dl Normal [facility] Absolute lymphocyte countOrd ered By: Dr. Anderson on 12-11-2022 Lymphocytes Auto (Unsp spec) [#/Vol] 2.86 10*3/uL 0.83-4.51 [facility] Basophil percentageOrdered B y: Dr. Anderson on 12-11-2022 Basophils/100 WBC (Bld) 0.6 % 0-1 [facility] Chloride [Moles/Vol] 112 mmol/L 98-107 [facility] Eosinophils/100 WBC (Bld) 2.1 % 0-5 [facility] Glucose [Mass/Vol] 103 mg/dL 74-106 [facility] Comment on above: Fasting Glucose resu lt from 100 to 125 mg/dL suggests IMPAIRED HOMEOSTASIS per A.D.A. criteria. Neutrophils (Bld) [#/Vol] 5.3 10*3/uL 2.0-7.7 [facility] Neutrophils/100 WBC (Bld) 57.1 % 47-70 [facility] Potassium [Moles/Vol] 4.1 mmol/L 3.5-5.1 [facility] Sodium [Moles/Vol] 139 mmol/L 136-145 [facility] WBC (Bld) [#/Vol] 9.4 10*3/uL 4.4-11.0 [facility] Blood erythrocytes count (nu mber/volume)Ordered By: Dr. Anderson on 12-11-2022 RBC (Bld) [#/Vol] 3.66 10*6/uL 4.2-5.4 [facility] Blood hemoglobin measurement (mass/volume)Ordered By: Dr. Anderson on 12-11-2022 Hemoglobin (Bld) [Mass/Vol] 10.9 g/dL 12.0-15.0 [facility] Blood lymphocytes/100 leukoc ytesOrdered By: Dr. Anderson on 12-11-2022 Lymphocytes/100 WBC (Bld) 30.6 % 19-41 [facility] Blood monocytes/100 leukocyt esOrdered By: Dr. Anderson on 12-11-2022 Monocytes/100 WBC (Bld) 9.3 % 0-10 [facility] Blood platelet mean volumeOr dered By: Dr. Anderson on 12-11-2022 Platelet mean volume (Bld) [Entitic vol] 9.4 fL 6.2-12.0 [facility] Determination of erythrocyte mean corpuscular volume (MCV)Ordered By: Dr. Anderson on 12-11-2022 MCV (RBC) [Entitic vol] 88.8 fL 81-99 [facility] Hematocrit Auto (Bld) [Volum e fraction]Ordered By: Dr. Anderson on 12-11-2022 Hematocrit (Bld) [Volume fraction] 32.5 % 37-47 [facility] Laboratory - Chemistry and C hemistry - challengeOrdered By: Dr. Anderson on 12-11-2022 CO2 [Moles/Vol] 22.0 mmol/L 21.0-32.0 [facility] Urea nitrogen/Creatinine [Mass ratio] 13.6 mg/mg 10-20 [facility] Laboratory - Hematology and Cell countsOrdered By: Dr. Anderson on 12-11-2022 Erythrocyte distribution width (RBC) [Entitic vol] 45.2 fL 35.1-43.9 [facility] Erythrocyte distribution width (RBC) [Ratio] 13.9 % 11.6-14.6 [facility] Immature granulocytes/100 WBC (Bld) 0.300 % 0.0-0.9 [facility] Comment on above: IG% - Immature Granu locytes (promyelocytes, myelocytes and metamyelocytes) > 1% indicates that a LEFT SHIFT is Present. MCH (RBC) [Entitic mass] 29.8 pg 27.0-32.0 [facility] Nucleated RBC/100 WBC (Bld) [Ratio] 0 % 0-5 [facility] MCHC Auto (RBC) [Mass/Vol]Or dered By: Dr. Anderson on 12-11-2022 MCHC (RBC) [Mass/Vol] 33.5 g/dL 32-36 [facility] No Panel InformationOrdered By: Dr. Anderson on 12-11-2022 Estimated Creatinine Clearance Calc 30.92 ml/min [facility] Estimated GFR (MDRD) Amer 51 mL/min >60 [facility] Comment on above: GFR Calc Estimated GFR (MDRD) Non-Af Amer 42 mL/min >60 [facility] Comment on above: Non- GFR Calc Platelets bldOrdered By: Dr. Anderson on 12-11-2022 Platelets (Bld) [#/Vol] 418 10*3/uL 150-450 [facility] Serum or plasma calcium franck urement (mass/volume)Ordered By: Dr. Anderson on 12-11-2022 Calcium [Mass/Vol] 8.7 mg/dL 8.5-10.1 [facility] Serum or plasma creatinine m easurement (mass/volume)Ordered By: Dr. Anderson on 12-11-2022 Creatinine [Mass/Vol] 1.32 mg/dL 0.55-1.02 [facility] Comment on above: The validity of the calculated GFR & GFRAA in patients over 70 years has not been determined. Clinical correlation is essential. Serum or plasma urea nitroge n measurement (mass/volume)Ordered By: Dr. Anderson on 12-11-2022 Urea nitrogen [Mass/Vol] 18 mg/dL 7-18 [facility] Thin prep Papanicolaou smear with manual screeningOrdered By: Dr. Anderson on 12-11-2022 Thin prep Papanicolaou smear with manual screening 5 5-15 [facility] [id number] 11-24-2022 HbA1c (Bld) [Mass fraction] 5.5 % Normal 4.3-6.1 [facility] Comment on above: Result Comment: Estimated Average Glucose: HgbA1C % mg/dL 4.0 68 5.0 97 6.0 125 7.0 154 8.0 183 9.0 212 10.0 240 Source: [place] [employer] web site, 2017. Performed By: #### L [id number] #### [facility] [address] [place] [address] BMPon 11-23-2022 Anion gap [Moles/Vol] 17.5 mmol/L Normal 15-22 [facility] Comment on above: Performed By: #### L [id number] #### [facility] [address] [place] [id number] Calcium [Mass/Vol] 9.7 mg/dL Normal 8.8-10.2 [facility] Comment on above: Performed By: #### [id number] #### [facility] [address] [place] [address] [phone] Chloride [Moles/Vol] 104 mmol/L Normal 98-107 [facility] Comment on above: Performed By: #### [id number] #### [facility] [address] [place] [address] 38193 CO2 [Moles/Vol] 21 mmol/L Low 22-29 [facility] Comment on above: Performed By: #### [id number] #### [facility] [address] [place] [address] [phone] Creatinine [Mass/Vol] 1.11 mg/dL High 0.50-0.90 [facility] Comment on above: Performed By: #### L [id number] #### [facility] [address] [place] [address] [phone] eGFR if AFR ELOISA 59 [facility] Comment on above: Result Comment: eGFR [...] #### L 200.0010 #### [facility] [address] [place] [address] 53340 eGFR nonAFR Eloisa 48 [facility] Comment on above: Performed By: #### L [id number] #### [facility] [address] [place] [address] 49917 Glucose [Mass/Vol] 106 mg/dL Normal 82-115 [facility] Comment on above: Performed By: #### [id number] #### [facility] [address] [place] [address] [phone] Potassium [Moles/Vol] 4.5 mmol/L Normal 3.5-5.0 [facility] Comment on above: Performed By: #### L [id number] #### [facility] [address] [place] [address] 46750 Sodium [Moles/Vol] 138 mmol/L Normal 135-145 [facility] Comment on above: Performed By: #### L [id number] #### [facility] [address] [place] [address] 71647 Urea nitrogen [Mass/Vol] 20 mg/dL Normal 8-23 [facility] Comment on above: Performed By: #### L [id number] #### [facility] [address] [place] [address] 53664 Basic metabolic 2000 panelon 11-23-2022 Anion gap [Moles/Vol] 17.5 mmol/L 15 - 2 2 mmol/L [facility] Calcium [Mass/Vol] 9.7 mg/dL 8.8 - 10. 2 mg/dL [facility] Chloride [Moles/Vol] 104 mmol/L 98 - 10 7 mmol/L [facility] CO2 [Moles/Vol] 21 mmol/L Low 22 - 29 mmol/L [facility] Creatinine [Mass/Vol] 1.11 mg/dL High 0.50 - 0.90 mg/dL [facility] eGFR-All Other Races 48 [facility] GFR/1.73 sq M.predicted among blacks MDRD (S/P/Bld) [Vol rate/Area] 59 mL/min/{1.73_m2} [facility] Glucose [Mass/Vol] 106 mg/dL 82 - 115 mg/dL [facility] Potassium [Moles/Vol] 4.5 mmol/L 3.5 - 5.0 mmol/L [facility] Sodium [Moles/Vol] 138 mmol/L 135 - 145 mmol/L [facility] Urea nitrogen [Mass/Vol] 20 mg/dL 8 - 23 mg/dL [facility] CBCon 11-23-2022 BASO# 0.10 x10(3) Normal 0.00-0.10 [facility] Comment on above: Performed By: #### L [id number] #### [facility] [address] [place] [address] 28628 Basophils/100 WBC (Bld) 1.1 % High 0.0-1.0 [facility] Comment on above: Performed By: #### [id number] #### [facility] [address] [place] [address] 14611 EOS# 0.30 x10(3) Normal 0.00-0.54 [facility] Comment on above: Performed By: #### L [id number] #### [facility] [address] [place] [address] 01777 Eosinophils/100 WBC (Bld) 3.2 % Normal 0.5-4.9 [facility] Comment on above: Performed By: #### L [id number] #### [facility] [address] [place] [address] 80144 Erythrocyte distribution width (RBC) [Ratio] 14.7 % Normal 12.5-15.7 [facility] Comment on above: Performed By: #### L [id number] #### [facility] [address] [place] [address] 19267 Hematocrit (Bld) [Volume fraction] 35.1 % Low 36.0-48.0 [facility] Comment on above: Performed By: #### L [id number] #### ML [facility] [address] [place] [address] 14012 Hemoglobin (Bld) [Mass/Vol] 11.6 g/dL Low 12.0-16.0 [facility] Comment on above: Performed By: #### L [id number] #### ML [facility] [address] [place] [address] 45762 LYMPH# 2.00 x10(3) Normal 1.00-3.50 [facility] Comment on above: Performed By: #### L [id number] #### ML [facility] [address] [place] [address] 93664 Lymphocytes/100 WBC (Bld) 25.8 % Normal 16.0-48.0 [facility] Comment on above: Performed By: #### L [id number] #### ML [facility] [address] [place] [address] [phone] MCH (RBC) [Entitic mass] 29.6 pg Normal 28.5-32.9 [facility] Comment on above: Performed By: #### L [id number] #### ML [facility] [address] [place] [address] 44748 MCHC (RBC) [Mass/Vol] 33.1 g/dL Normal 33.0-36.0 [facility] Comment on above: Performed By: #### L [id number] #### ML [facility] [address] [place] [address] 21937 MCV (RBC) [Entitic vol] 89.6 fL Normal 80.0-99.0 [facility] Comment on above: Performed By: #### L [id number] #### ML [facility] [address] [place] [address] 81152 MONO# 0.60 x10(3) Normal 0.30-0.80 [facility] Comment on above: Performed By: #### L [id number] #### ML [facility] [address] [place] [address] 46912 Monocytes/100 WBC (Bld) 7.5 % Normal 4.3-11.2 [facility] Comment on above: Performed By: #### L [id number] #### ML [facility] [address] [place] [address] 07563 NEUT# 4.90 x10(3) Normal 1.40-6.50 [facility] Comment on above: Performed By: #### L [id number] #### ML [facility] [address] [place] [address] 21085 Neutrophils/100 WBC (Bld) 62.4 % Normal 45.0-73.0 [facility] Comment on above: Performed By: #### L [id number] #### [facility] [address] [place] [address] 42578 Platelet mean volume (Bld) [Entitic vol] 8.1 fL Normal 7.5-9.5 [facility] Comment on above: Performed By: #### L [id number] #### [facility] [address] [place] [address] 44785 PLT 391 X10(3) Normal 150-450 [facility] Comment on above: Performed By: #### L [id number] #### [facility] [address] [place] [address] 45210 RBC 3.92 x10(6) Normal 3.30-5.00 [facility] Comment on above: Performed By: #### L 200.0010 #### ML - LABORATORY [address] [place] [address] 53780 WBC 7.8 x10(3) Normal 4.5-10.0 [facility] Comment on above: Performed By: #### L 200.0010 #### ML - LABORATORY [address] [place] [address] 84237 CBC W Auto Differential pane l (Bld)on 11-23-2022 BASO ABS 0.10 x10(3) 0.00 - 0.10 x10(3) [facility] Basophils/100 WBC (Bld) 1.1 % High 0.0 - 1.0 % [facility] EOS ABS 0.30 x10(3) 0.00 - 0.54 x10(3) [facility] Eosinophils/100 WBC (Bld) 3.2 % 0.5 - 4.9 % [facility] Erythrocyte distribution width (RBC) [Ratio] 14.7 % 12.5 - 15.7 % [facility] Hematocrit (Bld) [Volume fraction] 35.1 % Low 36.0 - 48.0 % [facility] Hemoglobin (Bld) [Mass/Vol] 11.6 g/dL Low 12.0 - 16.0 g/dL [facility] LYMPH ABS 2.00 x10(3) 1.00 - 3.50 x10(3) [facility] Lymphocytes/100 WBC (Bld) 25.8 % 16.0 - 48.0 % [facility] MCH (RBC) [Entitic mass] 29.6 pg 28.5 - 32.9 pg [facility] MCHC (RBC) [Mass/Vol] 33.1 g/dL 33.0 - 36.0 g/dL [facility] MCV (RBC) [Entitic vol] 89.6 fL 80.0 - 99.0 fl [facility] MONO ABS 0.60 x10(3) 0.30 - 0.80 x10(3) [facility] Monocytes/100 WBC (Bld) 7.5 % 4.3 - 11.2 % [facility] Neutrophil Ab 4.90 x10(3) 1.40 - 6.50 x10(3) [facility] Neutrophils/100 WBC (Bld) 62.4 % 45.0 - 73.0 % [facility] Platelet mean volume (Bld) [Entitic vol] 8.1 fL 7.5 - 9.5 fl [facility] Platelets (Bld) [#/Vol] 391 X10(3) 150 - 450 X10(3) [facility] RBC (Bld) [#/Vol] 3.92 x10(6) 3.30 - 5.0 0 x10(6) [facility] WBC (Bld) [#/Vol] 7.8 x10(3) 4.5 - 10.0 x10(3) [facility] HEPATIC PANELon 11-23-2022 A:G RATIO 1.35 Normal 1.1-2.5 [facility] Comment on above: Performed By: #### L 200.0010 #### [facility] [address] [place] [address] 98632 Albumin [Mass/Vol] 4.2 g/dL Normal 3.5-5.2 [facility] Comment on above: Performed By: #### L 200.0010 #### [facility] [address] [place] [address] 65698 ALK. PHOS 105 U/L Normal 35-105 [facility] Comment on above: Performed By: #### L 200.0010 #### ML [facility] [address] [place] [address] 19210 ALT [Catalytic activity/Vol] 14 U/L Normal 5-33 [facility] Comment on above: Performed By: #### L 200.0010 #### [facility] [address] [place] [address] 99718 AST [Catalytic activity/Vol] 21 U/L Normal 5-32 [facility] Comment on above: Performed By: #### L 200.0010 #### [facility] [address] [place] [address] Bilirubin [Mass/Vol] 0.3 mg/dL Normal 0.2-1.2 [facility] Comment on above: Performed By: #### L 200.0010 #### ML - LABORATORY [address] [place] [address] 95245 DIRECT BILIRUBI <0.2 Normal 0.0-0.3 [facility] Comment on above: Performed By: #### L 200.0010 #### ML - LABORATORY [address] [place] [address] 71315 Globulin (S) [Mass/Vol] 3.1 g/dL Normal 1.5-4.5 [facility] Comment on above: Performed By: #### L 200.0010 #### ML - LABORATORY [address] [place] [address] 24023 Protein [Mass/Vol] 7.3 g/dL Normal 6.4-8.3 [facility] Comment on above: Performed By: #### L 200.0010 #### ML - LABORATORY [address] [place] [address] 01399 HbA1c (Bld)on 11-23-2022 HbA1c (Bld) [Mass fraction] 5.5 % 4.3 - 6.1 % [facility] Hepatic function [facility] 11-23-2022 Albumin [Mass/Vol] 4.2 g/dL 3.5 - 5.2 g/dL [facility] Albumin/Globulin [Mass ratio] 1.35 {ratio} 1.1 - 2.5 [facility] ALP [Catalytic activity/Vol] 105 U/L 35 - 105 U/L [facility] ALT [Catalytic activity/Vol] 14 U/L 5 - 33 U/L [facility] AST [Catalytic activity/Vol] 21 U/L 5 - 32 U[facility] Bilirubin [Mass/Vol] 0.3 mg/dL 0.2 - 1 .2 mg/dL [facility] Direct Bilirubin <0.2 0.0 - 0.3 mg/dL [facility] Globulin (S) [Mass/Vol] 3.1 g/dL 1.5 - 4.5 g/dL [facility] Protein [Mass/Vol] 7.3 g/dL 6.4 - 8.3 g/dL [facility] TSHon 11-23-2022 TSH 2.65 uIU/mL Normal 0.270-4.200 [facility] Comment on above: Performed By: #### L 200.0010 #### [facility] - [facility] [address] [place] [address] TSH BLDon 11-23-2022 TSH Qn 2.65 uIU/mL 0.270 - 4.200 uIU/mL [facility] EMERGENCY DEPARTMENT REPORTo n 10-16-2022 EMERGENCY [place] [address] HEALTH INFORMATION MANAGEMENT EMERGENCY DEPARTMENT REPORT Patient: ADINA ESCOBARLEO M.D. [id number] [age] F Status: [facility] ER ED Date of Service: 10/14/22 PHYSICIAN: [...] musculoskeletal left thigh pain. Report#: Dict ID [id number] / Int ID [id number] cc: Kentrell Dhaliwal III, MD 10/16/22 1252 LEO EMERSON M.D. cc: LEO EMERSON M.D.; KENTRELL DHALIWAL II, M.D.; No Physician << Signature on File>> Reported By: LEO EMERSON M.D. Signed By: LEO EMERSON M.D. Tests performed at: [address] [address] Normal [facility] LEG VEIN DVT UNL VAS LABo n 10-16-2022 [facility] VENOUS DUPLEX OF SINGLE LEGo n 10-16-2022 VENOUS [place] [address] Vascular Lab - [facility] Accredited in: Extracranial Cerebrovascular, Visceral Vascular, Vascular Screening & Peripheral Arterial & Venous Testing [employer] REPORT Patient: ADINA ESCOBAR Dr: LEO EMERSON M.D. [id number] [age] F Status: REG CLI CARD Reason for Visit: PAIN LLE Service Date: 10/16/22 Access#: [id number] Procedure: VENOUS DUPLEX OF SINGLE LEG Conclusions: Left 1. Negative for deep venous thrombosis 2. Negative for superficial venous thrombosis Abbreviated Final Report. Full Report available via Link to [employer] in [employer] . Electronically Signed by: LEO JONES M.D. 10/17/22 0820 LEO JONES M.D. cc: LEO EMERSON M.D. << Signature on File>> Reported By: LEO JONES M.D. Signed By: LEO JONES M.D. Tests performed at: [address] [address] Normal [facility] BMPon 10-14-2022 Anion gap [Moles/Vol] 20.9 mmol/L Normal 15- [facility] Comment on above: Performed By: #### L 200.3190, L200.3001 #### [facility] [address] [place] [address] 00828 Calcium [Mass/Vol] 9.8 mg/dL Normal 8.8-10.2 [facility] Comment on above: Performed By: #### L 200.3190, L200.3001 #### ML - LABORATORY [address] [place] [address] 86510 Chloride [Moles/Vol] 100 mmol/L Normal 98-107 [facility] Comment on above: Performed By: #### L 200.3190, L200.3001 #### ML - LABORATORY [address] [place] [address] 58853 CO2 [Moles/Vol] 20 mmol/L Low - [facility] Comment on above: Performed By: #### L 200.3190, L200.3001 #### ML - LABORATORY [address] [place] [address] 40538 Creatinine [Mass/Vol] 1.34 mg/dL High 0.50-0.90 [facility] Comment on above: Performed By: #### L 200.3190, L200.3001 #### - LABORATORY [address] [place] [address] 41784 eGFR if AFR ELOISA 47 [facility] Comment on above: Result Comment: eGFR [...] L 200.3190, L200.3001 #### ML - LABORATORY [address] [place] [address] 69163 eGFR nonAFR Eloisa 39 [facility] Comment on above: Performed By: #### L 200.3190, L200.3001 #### [facility] [address] [place] [address] 60089 Glucose [Mass/Vol] 91 mg/dL Normal 82-115 [facility] Comment on above: Performed By: #### L 200.3190, L200.3001 #### ML - LABORATORY [address] [place] [address] 49424 Potassium [Moles/Vol] 3.9 mmol/L Normal 3.5-5.0 [facility] Comment on above: Performed By: #### L 200.3190, L200.3001 #### ML - LABORATORY [address] [place] [address] 83993 Sodium [Moles/Vol] 137 mmol/L Normal 135-145 [facility] Comment on above: Performed By: #### L 200.3190, L200.3001 #### ML - LABORATORY [address] [place] [address] Urea nitrogen [Mass/Vol] 14 mg/dL Normal 8-23 [facility] Comment on above: Performed By: #### L 200.3190, L200.3001 #### ML - LABORATORY [address] [place] [address] 10355 Basic metabolic 2000 panelon 10-14-2022 Anion gap [Moles/Vol] 20.9 mmol/L 15 - 2 2 mmol/L [facility] Calcium [Mass/Vol] 9.8 mg/dL 8.8 - 10. 2 mg/dL [facility] Chloride [Moles/Vol] 100 mmol/L 98 - 10 7 mmol/L [facility] CO2 [Moles/Vol] 20 mmol/L Low 22 - 29 mmol/L [facility] Creatinine [Mass/Vol] 1.34 mg/dL High 0.50 - 0.90 mg/dL [facility] eGFR-All Other Races [address] [facility] GFR/1.73 sq M.predicted among blacks MDRD (S/P/Bld) [Vol rate/Area] 47 mL/min/{1.73_m2} [facility] Glucose [Mass/Vol] 91 mg/dL 82 - 115 mg/dL [facility] Potassium [Moles/Vol] 3.9 mmol/L 3.5 - 5.0 mmol/L [facility] Sodium [Moles/Vol] 137 mmol/L 135 - 145 mmol/L [facility] Urea nitrogen [Mass/Vol] 14 mg/dL 8 - 23 mg/dL [facility] CBCon 10-14-2022 BASO# 0.10 x10(3) Normal 0.00-0.10 [facility] Comment on above: Performed By: #### L 200.3190, L200.3001 #### ML - LABORATORY [address] [place] [address] Basophils/100 WBC (Bld) 0.7 % Normal 0.0-1.0 [facility] Comment on above: Performed By: #### L 200.3190, L200.3001 #### ML - LABORATORY [address] [place] [address] EOS# 0.10 x10(3) Normal 0.00-0.54 [facility] Comment on above: Performed By: #### L 200.3190, L200.3001 #### ML - LABORATORY [address] [place] [address] 66429 Eosinophils/100 WBC (Bld) 0.6 % Normal 0.5-4.9 [facility] Comment on above: Performed By: #### L 200.3190, L200.3001 #### ML - LABORATORY [address] [place] [address] 04583 Erythrocyte distribution width (RBC) [Ratio] 15.4 % Normal 12.5-15.7 [facility] Comment on above: Performed By: #### L 200.3190, L200.3001 #### ML - LABORATORY [address] [place] [address] 23539 Hematocrit (Bld) [Volume fraction] 35.6 % Low 36.0-48.0 [facility] Comment on above: Performed By: #### L 200.3190, L200.3001 #### ML - LABORATORY [address] [place] [address] 69233 Hemoglobin (Bld) [Mass/Vol] 11.8 g/dL Low 12.0-16.0 [facility] Comment on above: Performed By: #### L 200.3190, L200.3001 #### ML - LABORATORY [address] [place] [address] 78584 LYMPH# 3.50 x10(3) Normal 1.00-3.50 [facility] Comment on above: Performed By: #### L 200.3190, L200.3001 #### ML - LABORATORY [address] [place] [address] 22441 Lymphocytes/100 WBC (Bld) 29.0 % Normal 16.0-48.0 [facility] Comment on above: Performed By: #### L 200.3190, L200.3001 #### ML - LABORATORY [address] [place] [address] 21095 MCH (RBC) [Entitic mass] 29.4 pg Normal 28.5-32.9 [facility] Comment on above: Performed By: #### L 200.3190, L200.3001 #### ML - LABORATORY [address] [place] [address] 88138 MCHC (RBC) [Mass/Vol] 33.2 g/dL Normal 33.0-36.0 [facility] Comment on above: Performed By: #### L 200.3190, L200.3001 #### ML - LABORATORY [address] [place] [address] 19241 MCV (RBC) [Entitic vol] 88.4 fL Normal 80.0-99.0 [facility] Comment on above: Performed By: #### L 200.3190, L200.3001 #### - LABORATORY [address] [place] [address] 46162 MONO# 0.90 x10(3) High 0.30-0.80 [facility] Comment on above: Performed By: #### L 200.3190, L200.3001 #### [facility] [address] [place] [address] 96059 Monocytes/100 WBC (Bld) 7.3 % Normal 4.3-11.2 [facility] Comment on above: Performed By: #### L 200.3190, L200.3001 #### [facility] [address] [place] [address] 64629 NEUT# 7.50 x10(3) High 1.40-6.50 [facility] Comment on above: Performed By: #### L 200.3190, L200.3001 #### [facility] [address] [place] [address] 37693 Neutrophils/100 WBC (Bld) 62.4 % Normal 45.0-73.0 [facility] Comment on above: Performed By: #### L 200.3190, L200.3001 #### [facility] [address] [place] [address] 56788 Platelet mean volume (Bld) [Entitic vol] 8.0 fL Normal 7.5-9.5 [facility] Comment on above: Performed By: #### L 200.3190, L200.3001 #### ML - LABORATORY [address] [place] [address] PLT 437 X10(3) Normal 150-450 [facility] Comment on above: Performed By: #### L 200.3190, L200.3001 #### ML - LABORATORY [address] [place] [address] RBC 4.02 x10(6) Normal 3.30-5.00 [facility] Comment on above: Performed By: #### L 200.3190, L200.3001 #### ML - LABORATORY [address] [place] [address] WBC 12.0 x10(3) High 4.5-10.0 [facility] Comment on above: Performed By: #### L 200.3190, L200.3001 #### ML - LABORATORY [address] [place] [address] CBC W Auto Differential pane l (Bld)on 10-14-2022 BASO ABS 0.10 x10(3) 0.00 - 0.10 x10(3) [facility] Basophils/100 WBC (Bld) 0.7 % 0.0 - 1.0 % [facility] EOS ABS 0.10 x10(3) 0.00 - 0.54 x10(3) [facility] Eosinophils/100 WBC (Bld) 0.6 % 0.5 - 4.9 % [facility] Erythrocyte distribution width (RBC) [Ratio] 15.4 % 12.5 - 15.7 % [facility] Hematocrit (Bld) [Volume fraction] 35.6 % Low 36.0 - 48.0 % [facility] Hemoglobin (Bld) [Mass/Vol] 11.8 g/dL Low 12.0 - 16.0 g/dL [facility] LYMPH ABS 3.50 x10(3) 1.00 - 3.50 x10(3) [facility] Lymphocytes/100 WBC (Bld) 29.0 % 16.0 - 48.0 % [facility] MCH (RBC) [Entitic mass] 29.4 pg 28.5 - 32.9 pg [facility] MCHC (RBC) [Mass/Vol] 33.2 g/dL 33.0 - 36.0 g/dL [facility] MCV (RBC) [Entitic vol] 88.4 fL 80.0 - 99.0 fl [facility] MONO ABS 0.90 x10(3) High 0.30 - 0.80 x10(3) [facility] Monocytes/100 WBC (Bld) 7.3 % 4.3 - 11.2 % [facility] Neutrophil Ab 7.50 x10(3) High 1.40 - 6.50 x10(3) [facility] Neutrophils/100 WBC (Bld) 62.4 % 45.0 - 73.0 % [facility] Platelet Count 437 X10(3) 150 - 450 X10(3) [facility] Platelet mean volume (Bld) [Entitic vol] 8.0 fL 7.5 - 9.5 fl [facility] RBC 4.02 x10(6) 3.30 - 5.00 x10(6) [facility] WBC 12.0 x10(3) High 4.5 - 10.0 x10(3) [facility] CHEST-ONE VIEW ONLY - CXR1on 10-14-2022 CHEST-ONE VIEW ONLY - CXR1 [place] [address] Name: ADINA ESCOBAR Franny Phys: LEO EMERSON M.D. : [birth year] Age: 72 Sex: F Acct: [id number] Loc: ED Exam Date: 10/14/22 Status: REG ER Radiology No.: Unit Number: [id number] Exam # Type/Exam [id number] RAD / CHEST-ONE VIEW ONLY - CXR1 EXAMINATION: ONE XRAY VIEW OF THE CHEST 10/14/2022 9:00 pm COMPARISON: 11/18/2021 HISTORY: ORDERING SYSTEM PROVIDED HISTORY: TECHNOLOGIST PROVIDED HISTORY: Reason for Exam: Chest pain FINDINGS: No consolidation, congestion, pleural effusion, or pneumothorax is seen. The cardiomediastinal silhouette is unremarkable. IMPRESSION: No acute process. Electronically signed By Armani Maria DO 10/14/2022 9:07:47 PM EST Workstation ID : [id number] < > Reported By: ARMANI MARIA D.O. Signed In Fluency By: ARMANI MARIA D.O. << Signature on File>> Reported By: ARMANI MARIA D.O. Signed By: ARMANI MARIA D.O. Tests performed at: [address] [address] Normal [facility] CKon 10-14-2022 CK [Catalytic activity/Vol] 78 U/L Normal 26-192 [facility] Comment on above: Result Comment: Rela tive Index is not calculated as it is only applicable to CK values greater than or equal to 192 IU/L. NO RELATIVE INDEX PERFORMED Performed By: #### L 200.3190, L200.3001 #### [facility] [address] [place] [address] CK CREATINE KINASEon 023 CK [Catalytic activity/Vol] 78 U/L 26 - 192 IU/L [facility] CK-MBon 10-14-2022 CK.MB [Mass/Vol] 1.6 ng/mL Normal 1.0-5.34 [facility] Comment on above: Performed By: #### L 301.0100, L301.0120, L301.0105 #### [facility] [address] [place] [address] CK-MB (GLIDDEN)on 10-14-2022 CK.MB [Mass/Vol] 1.6 ng/mL 1.0 - 5.34 ng/mL [facility] EKGon 10-14-2022 Atrial Rate 73 BPM [facility] Calculated P [place] 59 degrees [facility] Calculated R [place] 38 degrees [facility] Calculated T [place] 51 degrees [facility] P-R Interval 138 ms [facility] QRS Duration 76 ms [facility] QT Interval 406 ms [facility] QTC Calculation (Bazett) 447 ms [facility] Ventricular Rate [address] [facility] ELECTROCARDIOGRAMon 10-14-19 Electrocardiogram [facility] [address] HEALTH INFORMATION MANAGEMENT ELECTROCARDIOGRAM REPORT Patient: ADINA ESCOBAR I Ordering: LEO EMERSON M.D. [id number] [age] F Exam Date: 10/14/22 Report #: [id number] Status: REG ER ED Test Reason : [...] was found Confirmed by LEO EMERSON MD ([id number]) on 10/14/2022 8:04:16 PM Referred By: LEO EMERSON Confirmed By:LEO EMERSON MD Signed in [facility] 10/14/222005 LEO EMERSON M.D. cc: << Signature on File>> Reported By: LEO EMERSON M.D. Signed By: LEO EMERSON M.D. Tests performed at: [place] [id number] Normal [facility] TROPONIN Ton 10-14-2022 TROPONIN T <0.010 Normal 0-0.010 [facility] Comment on above: Performed By: #### L 200.3190, L200.3001 #### [facility] [address] [place] [address] 81006 Troponin T <0.010 0 - 0.010 ng/mL [facility] XR CHEST 1V FRONTALon 2022 [facility] XR Abdomen Supine and Uprigh ton 07-24-2022 IMPRESSION: No evide nce of free air or obstruction. Scuba Diving Instructor: PSCKaylah Transcribe Date/Time: Jul 24 2022 2:23P Dictated by : DUC HUTCHINSON MD This examination was interpreted and the report reviewed and electronically signed by: DUC HUTCHINSON MD on Jul 24 2022 2:27PM [facility] DIVISION OF RADIOLOGY * * *Final Report* [...] shows right-sided curvature. [facility] * * *Final Report* * [...] No evidence of free air or obstruction. Scuba Diving Instructor: [facility] Transcribe Date/Time: Jul 24 2022 2:23P Dictated by : DUC HUTCHINSON MD This examination was interpreted and the report reviewed and electronically signed by: DUC HUTCHINSON MD on Jul 24 2022 2:27PM EST [facility] XR Abdomen Supine and Uprigh tOrdered By: [facility] Provider on 07-24-2022 [facility] XR Abdomen Supine and Uprigh ton 07-21-2022 Radiology Study observation (narrative) [facility] ABDOMEN (KUB)1 VIEWon 2021 ABDOMEN (KUB)1 VIEW [facility] [place] [address] Name: BRIEADINA I Phys: KENTRELL PACHECO M.D. : [birth year] Age: 72 Sex: F Acct: [id number] Loc: 2SWEST Exam Date: 07/17/22 Status: ADM IN Radiology No.: Unit Number: [id number] Exam # Type/Exam [id number] RAD / ABDOMEN (KUB)1 VIEW EXAMINATION: ONE [...] 07/17/2022 5:03:57 AM EST Workstation ID : [id number] < > Reported By: DURGA HUANG M.D. Signed In Fluency By: DURGA HUANG M.D. << Signature on File>> Reported By: DURGA HUANG M.D. Signed By: DURGA HUANG M.D. Tests performed at: [address] [address] Normal [facility] CREATon 07-17-2022 Creatinine [Mass/Vol] 0.81 mg/dL Normal 0.50-0.90 [facility] Comment on above: Performed By: #### L 200.3190, L200.3001 #### [facility] [address] [place] [address] 93011 eGFR if AFR ELOISA > 60 ml/min/1.73m2 Normal U [facility] Comment on above: Result Comment: eGFR [...] 200.3190, L200.3001 #### ML - LABORATORY [address] [place] [address] eGFR nonAFR Eloisa > 60 ml/Min/1.73m2 Normal U [facility] Comment on above: Performed By: #### L 200.3190, L200.3001 #### ML - LABORATORY [address] [place] [address] CREATININE BLDon 07-17-2022 Creatinine [Mass/Vol] 0.81 mg/dL 0.50 - 0.90 mg/dL [facility] eGFR-All Other Races > 60 ml/Min/1.73m2 [facility] GFR/1.73 sq M.predicted among blacks MDRD (S/P/Bld) [Vol rate/Area] mL/min/{1.73_m2} [facility] PROGRESS NOTEon 07-17-2022 PROGRESS NOTE [facility] [address] HEALTH INFORMATION MANAGEMENT PROGRESS NOTE Patient: ADINA ESCOBAR KENTRELL CLAY M.D. [id number] [age] F Status: ADM IN [facility] 2922-A DATE OF PROGRESS NOTE: 07/17/2022 [...] she would have to go up to [place] or [place] because of the complex nature of her [...] will do regular diet. Report#: Dict ID [id number] / Int ID [id number] KENTRELL PACHECO M.D. cc: KENTRELL PACHECO M.D. << Signature on File>> Reported By: KENTRELL PACHECO M.D. Signed By: KENTRELL PACHECO M.D. Tests performed at: [place] [id number] Normal [facility] [place]GRESS [place] [address] HEALTH INFORMATION MANAGEMENT PROGRESS NOTE Patient: ADINA ESCOBAR I KENTRELL PACHECO M.D. [id number] [age] F Status: ADM IN [facility] 2922-A DATE OF PROGRESS NOTE: 07/16/2022 LOCATION: [facility]. SUBJECTIVE: 72-year-old white female, less discomfort, nausea, [...] on her again tomorrow. Report#: Dict ID [id number] / Int ID [id number] KENTRELL PACHECO M.D. cc: KENTRELL PACHECO M.D. << Signature on File>> Reported By: KENTRELL PACHECO M.D. Signed By: KENTRELL PACHECO M.D. Tests performed at: [address] [address] Normal [facility] XR ABDOMEN 1V SPECIFYon - [facility] BMPon 07-16-2022 Anion gap [Moles/Vol] 14.5 mmol/L Low 15-22 [facility] Comment on above: Performed By: #### L 200.3190, L200.3001 #### ML - LABORATORY [address] [place] [address] 26738 Calcium [Mass/Vol] 8.4 mg/dL Low 8.8-10.2 [facility] Comment on above: Performed By: #### L 200.3190, L200.3001 #### ML - LABORATORY [address] [place] [address] 19918 Chloride [Moles/Vol] 111 mmol/L High 98-107 [facility] Comment on above: Performed By: #### L 200.3190, L200.3001 #### ML - LABORATORY [address] [place] [address] 18135 CO2 [Moles/Vol] 20 mmol/L Low 22-29 [facility] Comment on above: Performed By: #### L 200.3190, L200.3001 #### ML - LABORATORY [address] [place] [address] 56867 Creatinine [Mass/Vol] 0.78 mg/dL Normal 0.50-0.90 [facility] Comment on above: Performed By: #### L 200.3190, L200.3001 #### ML - LABORATORY [address] [place] [address] 32353 eGFR if AFR ELOISA > 60 ml/min/1.73m2 Normal [facility] Comment on above: Result Comment: eGFR >= [...] L 200.3190, L200.3001 #### ML - LABORATORY [address] [place] [address] 08191 eGFR nonAFR Eloisa > 60 ml/Min/1.73m2 Normal [facility] Comment on above: Performed By: #### L 200.3190, L200.3001 #### [facility] [address] [place] [address] [id number] Glucose [Mass/Vol] 105 mg/dL Normal 82-115 [facility] Comment on above: Performed By: #### L 200.3190, L200.3001 #### [facility] - [facility]ATORY [address] [place] [address] [id number] Potassium [Moles/Vol] 3.5 mmol/L Normal 3.5-5.0 [facility] Comment on above: Performed By: #### L 200.3190, L200.3001 #### - LABORATORY [address] [place] [address] [id number] Sodium [Moles/Vol] 142 mmol/L Normal 135-145 [facility] Comment on above: Performed By: #### L 200.3190, L200.3001 #### [facility] - LABORATORY [address] [place] [address] 15271 Urea nitrogen [Mass/Vol] 2 mg/dL Low 8-23 [facility] Comment on above: Performed By: #### L 200.3190, L200.3001 #### - LABORATORY [address] [place] [address] 93933 Basic metabolic 2000 panelon 07-16-2022 Anion gap [Moles/Vol] 14.5 mmol/L Low 15 - 2 2 mmol/L [facility] Calcium [Mass/Vol] 8.4 mg/dL Low 8.8 - 10. 2 mg/dL [facility] Chloride [Moles/Vol] 111 mmol/L High 98 - 10 7 mmol/L [facility] CO2 [Moles/Vol] 20 mmol/L Low 22 - 29 mmol/L [facility] Creatinine [Mass/Vol] 0.78 mg/dL 0.50 - 0.90 mg/dL [facility] eGFR-All Other Races > 60 ml/Min/1.73m2 [facility] GFR/1.73 sq M.predicted among blacks MDRD (S/P/Bld) [Vol rate/Area] mL/min/{1.73_m2} [facility] Glucose [Mass/Vol] 105 mg/dL 82 - 115 mg/dL [facility] Potassium [Moles/Vol] 3.5 mmol/L 3.5 - 5.0 mmol/L [facility] Sodium [Moles/Vol] 142 mmol/L 135 - 145 mmol/L [facility] Urea nitrogen [Mass/Vol] 2 mg/dL Low 8 - 23 mg/dL [facility] CBCon 07-16-2022 BASO# 0.10 x10(3) Normal 0.00-0.10 [facility] Comment on above: Performed By: #### L 200.0010 #### ML - LABORATORY [address] [place] [address] 33327 Basophils/100 WBC (Bld) 1.0 % Normal 0.0-1.0 [facility] Comment on above: Performed By: #### L 200.0010 #### ML - LABORATORY [address] [place] [address] 44528 EOS# 0.30 x10(3) Normal 0.00-0.54 [facility] Comment on above: Performed By: #### L 200.0010 #### ML [facility] [address] [place] [address] 69437 Eosinophils/100 WBC (Bld) 5.3 % High 0.5-4.9 [facility] Comment on above: Performed By: #### L 200.0010 #### ML [facility]OR[facility]ORY [address] [place] [address] 38252 Erythrocyte distribution width (RBC) [Ratio] 16.2 % High 12.5-15.7 [facility] Comment on above: Performed By: #### L 200.0010 #### ML - LABORATORY [address] [place] [address] 28849 Hematocrit (Bld) [Volume fraction] 28.3 % Low 36.0-48.0 [facility] Comment on above: Performed By: #### L 200.0010 #### ML - LABORATORY [address] [place] [address] 63366 Hemoglobin (Bld) [Mass/Vol] 9.3 g/dL Low 12.0-16.0 [facility] Comment on above: Performed By: #### L 200.0010 #### ML - LABORATORY [address] [place] [address] 73346 LYMPH# 2.50 x10(3) Normal 1.00-3.50 [facility] Comment on above: Performed By: #### L 200.0010 #### ML [facility] [address] [place] [address] 48826 Lymphocytes/100 WBC (Bld) 39.6 % Normal 16.0-48.0 [facility] Comment on above: Performed By: #### L 200.0010 #### ML - LABORATORY [address] [place] [address] 47425 MCH (RBC) [Entitic mass] 28.4 pg Low 28.5-32.9 [facility] Comment on above: Performed By: #### L 200.0010 #### ML - LABORATORY [address] [place] [address] 48221 MCHC (RBC) [Mass/Vol] 33.0 g/dL Normal 33.0-36.0 [facility] Comment on above: Performed By: #### L 200.0010 #### ML - LABORATORY [address] [place] [address] 95176 MCV (RBC) [Entitic vol] 86.1 fL Normal 80.0-99.0 [facility] Comment on above: Performed By: #### L 200.0010 #### ML - LABORATORY [address] [place] [address] 15982 MONO# 0.60 x10(3) Normal 0.30-0.80 [facility] Comment on above: Performed By: #### L 200.0010 #### ML - LABORATORY [address] [place] [address] 85951 Monocytes/100 WBC (Bld) 9.0 % Normal 4.3-11.2 [facility] Comment on above: Performed By: #### L 200.0010 #### ML [facility] [address] [place] [address] 51226 NEUT# 2.90 x10(3) Normal 1.40-6.50 [facility] Comment on above: Performed By: #### L 200.0010 #### ML - LABORATORY [address] [place] [address] 50657 Neutrophils/100 WBC (Bld) 45.1 % Normal 45.0-73.0 [facility] Comment on above: Performed By: #### L 200.0010 #### ML [facility] [address] [place] [address] 25133 Platelet mean volume (Bld) [Entitic vol] 8.2 fL Normal 7.5-9.5 [facility] Comment on above: Performed By: #### L 200.0010 #### ML [facility] [address] [place] [address] 39984 PLT 251 X10(3) Normal 150-450 [facility] Comment on above: Performed By: #### L 200.0010 #### ML [facility] [address] [place] [address] 72360 RBC 3.28 x10(6) Low 3.30-5.00 [facility] Comment on above: Performed By: #### L 200.0010 #### ML [facility] [address] [place] [address] 59090 WBC 6.4 x10(3) Normal 4.5-10.0 [facility] Comment on above: Performed By: #### L 200.0010 #### ML [facility] [address] [place] [address] 07577 CBC W Auto Differential pane l (Bld)on 07-16-2022 BASO ABS 0.10 x10(3) 0.00 - 0.10 x10(3) [facility] Basophils/100 WBC (Bld) 1.0 % 0.0 - 1.0 % [facility] EOS ABS 0.30 x10(3) 0.00 - 0.54 x10(3) [facility] Eosinophils/100 WBC (Bld) 5.3 % High 0.5 - 4.9 % [facility] Erythrocyte distribution width (RBC) [Ratio] 16.2 % High 12.5 - 15.7 % [facility] Hematocrit (Bld) [Volume fraction] 28.3 % Low 36.0 - 48.0 % [facility] Hemoglobin (Bld) [Mass/Vol] 9.3 g/dL Low 12.0 - 16.0 g/dL [facility] LYMPH ABS 2.50 x10(3) 1.00 - 3.50 x10(3) [facility] Lymphocytes/100 WBC (Bld) 39.6 % 16.0 - 48.0 % [facility] MCH (RBC) [Entitic mass] 28.4 pg Low 28.5 - 32.9 pg [facility] MCHC (RBC) [Mass/Vol] 33.0 g/dL 33.0 - 36.0 g/dL [facility] MCV (RBC) [Entitic vol] 86.1 fL 80.0 - 99.0 fl [facility] MONO ABS 0.60 x10(3) 0.30 - 0.80 x10(3) [facility] Monocytes/100 WBC (Bld) 9.0 % 4.3 - 11.2 % [facility] Neutrophil Ab 2.90 x10(3) 1.40 - 6.50 x10(3) [facility] Neutrophils/100 WBC (Bld) 45.1 % 45.0 - 73.0 % [facility] Platelet Count 251 X10(3) 150 - 450 X10(3) [facility] Platelet mean volume (Bld) [Entitic vol] 8.2 fL 7.5 - 9.5 fl [facility] RBC 3.28 x10(6) Low 3.30 - 5.00 x10(6) [facility] WBC 6.4 x10(3) 4.5 - 10.0 x10(3) [facility] ABDOMEN (KUB)1 VIEWon 2021 ABDOMEN (KUB)1 VIEW [place] [id number] Name: ADINA ESCOBAR I Phys: KENTRELL PACHECO M.D. : [birth year] Age: 72 Sex: F Acct: [id number] Loc: 2SWEST Exam Date: 07/15/22 Status: ADM IN Radiology No.: Unit Number: [id number] Exam # Type/Exam [id number] RAD / ABDOMEN (KUB)1 VIEW EXAMINATION: ONE [...] 07/15/2022 7:31:23 AM EST Workstation ID : [id number] < > Reported By: DURGA HUANG M.D. Signed In Fluency By: DURGA HUANG M.D. << Signature on File>> Reported By: DURGA HUANG M.D. Signed By: DURGA HUANG M.D. Tests performed at: [address] [address] Normal [facility] CREATon 07-15-2022 Creatinine [Mass/Vol] 0.98 mg/dL High 0.50-0.90 [facility] Comment on above: Performed By: #### L 200.3190, L200.3006 #### ML - [facility] LAB[facility] [address] [place] [address] 86300 eGFR if AFR ELOISA > 60 ml/min/1.73m2 Normal [facility] Comment on above: Result Comment: eGFR >= [...] 200.3190, L200.3001 #### ML - LABORATORY [address] [place] [address] eGFR nonAFR Eloisa 56 [facility] Comment on above: Performed By: #### L 200.3190, L200.3001 #### ML - LABORATORY [address] [place] [address] CREATININE BLDon 07-15-2022 Creatinine [Mass/Vol] 0.98 mg/dL High 0.50 - 0.90 mg/dL [facility] eGFR-All Other Races [address] [facility] GFR/1.73 sq M.predicted among blacks MDRD (S/P/Bld) [Vol rate/Area] mL/min/{1.73_m2} [facility] PROGRESS NOTEon 07-15-[address] [facility] [place] [address] HEALTH INFORMATION MANAGEMENT PROGRESS NOTE Patient: ADINA ESCOBAR I CHELLE ANTON M.D. [id number] [age] F Status: ADM IN [facility] 2922-A DATE OF PROGRESS NOTE: 07/15/2022 [...] Surgery on this admission. Report#: Dict ID [id number] / Int ID [id number] CHELLE ANTON M.D. cc: CHELLE ANTON M.D. << Signature on File>> Reported By: CHELLE ANTON M.D. Signed By: CHELLE ANTON M.D. Tests performed at: [place] [address] [facility] [place]GRESS [place] [address] HEALTH INFORMATION MANAGEMENT PROGRESS NOTE Patient: ADINA ESCOBAR I KENTRELL PACHECO M.D. [id number] [age] F Status: ADM IN [facility] 2922-A DATE OF PROGRESS NOTE: 07/15/2022 Tara doing the note. SUBJECTIVE: 72-year-old white female, did have a bowel movement yesterday, feeling a little better today. OBJECTIVE: VITAL SIGNS: Stable, afebrile. ABDOMEN: No acute peritoneal signs. KUB pending today. ASSESSMENT: 72-year-old white female, partial small bowel obstruction, maybe improving. PLAN: To slowly advance diet as tolerated. Report#: Dict ID [id number] / Int ID [id number] KENTRELL PACHECO M.D. cc: KENTRELL PACHECO M.D. << Signature on File>> Reported By: KENTRELL PACHECO M.D. Signed By: KENTRELL PACHECO M.D. Tests performed at: [place] [address] [facility] URINE CULTUREon 07-15-2022 Bacteria identified Cx Nom (U) XXX [facility] XR ABDOMEN 1V SPECIFYon 06-18 [facility] BLOOD CULTUREon 07-14-2022 Bacteria identified Cx Nom (Bld) CULTURE, BLOOD No growth 5 days SOURCE: BLOOD Test Performed By: [facility] [address] [place] [address] [employer] Dipper: Sven Wasserman III, M.D. See Below Normal [facility] BMPon 07-14-2022 Anion gap [Moles/Vol] 16.3 mmol/L Normal 15-22 [facility] Comment on above: Performed By: #### L 200.3190, L200.3001 #### ML - LABORATORY [address] [place] [address] 54891 Calcium [Mass/Vol] 9.4 mg/dL Normal 8.8-10.2 [facility] Comment on above: Performed By: #### L 200.3190, L200.3001 #### ML - LABORATORY [address] [place] [address] 15334 Chloride [Moles/Vol] 100 mmol/L Normal 98-107 [facility] Comment on above: Performed By: #### L 200.3190, L200.3001 #### ML - LABORATORY [address] [place] [address] 11511 CO2 [Moles/Vol] 22 mmol/L Normal -29 [facility] Comment on above: Performed By: #### L 200.3190, L200.3001 #### ML - LABORATORY [address] [place] [address] 43389 Creatinine [Mass/Vol] 0.99 mg/dL High 0.50-0.90 [facility] Comment on above: Performed By: #### L 200.3190, L200.3001 #### ML - LABORATORY [address] [place] [address] 73022 eGFR if AFR ELOISA > 60 ml/min/1.73m2 Normal [facility] Comment on above: Result Comment: eGFR >= [...] #### L 200.3190, L200.3001 #### - LABORATORY [address] [place] [address] 85636 eGFR nonAFR Eloisa 55 [facility] Comment on above: Performed By: #### L 200.3190, L200.3001 #### [facility] [address] [place] [address] 84740 Glucose [Mass/Vol] 111 mg/dL Normal 82-115 [facility] Comment on above: Performed By: #### L 200.3190, L200.3001 #### ML - LABORATORY [address] [place] [address] 40474 Potassium [Moles/Vol] 4.3 mmol/L Normal 3.5-5.0 [facility] Comment on above: Performed By: #### L 200.3190, L200.3001 #### [facility] [address] [place] [address] 86652 Sodium [Moles/Vol] 134 mmol/L Low 135-145 [facility] Comment on above: Performed By: #### L 200.3190, L200.3001 #### - LABORATORY [address] [place] [address] Urea nitrogen [Mass/Vol] 8 mg/dL Normal 8-23 [facility] Comment on above: Performed By: #### L 200.3190, L200.3001 #### - LABORATORY [address] [place] [address] 19622 CBCon 07-14-2022 BASO# 0.10 x10(3) Normal 0.00-0.10 [facility] Comment on above: Performed By: #### L 200.3190, L200.3001 #### ML - LABORATORY [address] [place] [address] 02360 Basophils/100 WBC (Bld) 0.9 % Normal 0.0-1.0 [facility] Comment on above: Performed By: #### L 200.3190, L200.3001 #### - LABORATORY [address] [place] [address] 04270 EOS# 0.10 x10(3) Normal 0.00-0.54 [facility] Comment on above: Performed By: #### L 200.3190, L200.3001 #### - LABORATORY [address] [place] [address] 11440 Eosinophils/100 WBC (Bld) 0.8 % Normal 0.5-4.9 [facility] Comment on above: Performed By: #### L 200.3190, L200.3001 #### ML - LABORATORY [address] [place] [address] 51656 Erythrocyte distribution width (RBC) [Ratio] 16.0 % High 12.5-15.7 [facility] Comment on above: Performed By: #### L 200.3190, L200.3001 #### - LABORATORY [address] [place] [address] 64839 Hematocrit (Bld) [Volume fraction] 36.9 % Normal 36.0-48.0 [facility] Comment on above: Performed By: #### L 200.3190, L200.3001 #### ML - LABORATORY [address] [place] [address] 15312 Hemoglobin (Bld) [Mass/Vol] 12.1 g/dL Normal 12.0-16.0 [facility] Comment on above: Performed By: #### L 200.3190, L200.3001 #### - LABORATORY [address] [place] [address] 93615 LYMPH# 3.90 x10(3) High 1.00-3.50 [facility] Comment on above: Performed By: #### L 200.3190, L200.3001 #### ML - LABORATORY [address] [place] [address] 72510 Lymphocytes/100 WBC (Bld) 36.4 % Normal 16.0-48.0 [facility] Comment on above: Performed By: #### L 200.3190, L200.3001 #### ML - LABORATORY [address] [place] [address] 96462 MCH (RBC) [Entitic mass] 28.5 pg Normal 28.5-32.9 [facility] Comment on above: Performed By: #### L 200.3190, L200.3001 #### ML - LABORATORY [address] [place] [address] 00557 MCHC (RBC) [Mass/Vol] 32.7 g/dL Low 33.0-36.0 [facility] Comment on above: Performed By: #### L 200.3190, L200.3001 #### ML - LABORATORY [address] [place] [address] 54472 MCV (RBC) [Entitic vol] 87.1 fL Normal 80.0-99.0 [facility] Comment on above: Performed By: #### L 200.3190, L200.3001 #### ML - LABORATORY [address] [place] [address] 79666 MONO# 0.80 x10(3) Normal 0.30-0.80 [facility] Comment on above: Performed By: #### L 200.3190, L200.3001 #### ML - LABORATORY [address] [place] [address] 88780 Monocytes/100 WBC (Bld) 7.4 % Normal 4.3-11.2 [facility] Comment on above: Performed By: #### L 200.3190, L200.3001 #### ML - LABORATORY [address] [place] [address] 06995 NEUT# 5.80 x10(3) Normal 1.40-6.50 [facility] Comment on above: Performed By: #### L 200.3190, L200.3001 #### ML - LABORATORY [address] [place] [address] 90002 Neutrophils/100 WBC (Bld) 54.5 % Normal 45.0-73.0 [facility] Comment on above: Performed By: #### L 200.3190, L200.3001 #### ML - LABORATORY [address] [place] [address] 85427 Platelet mean volume (Bld) [Entitic vol] 8.4 fL Normal 7.5-9.5 [facility] Comment on above: Performed By: #### L 200.3190, L200.3001 #### ML - LABORATORY [address] [place] [address] 96020 PLT 371 X10(3) Normal 150-450 [facility] Comment on above: Performed By: #### L 200.3190, L200.3001 #### ML - LABORATORY [address] [place] [address] 91531 RBC 4.23 x10(6) Normal 3.30-5.00 [facility] Comment on above: Performed By: #### L 200.3190, L200.3001 #### ML - LABORATORY [address] [place] [address] 89530 WBC 10.6 x10(3) High 4.5-10.0 [facility] Comment on above: Performed By: #### L 200.3190, L200.3001 #### ML - LABORATORY [address] [place] [address] ABD/PEL W CONTRAST - CT ABD/PEL W CONTRAST [address] [address] Name: ADINA ESCOBAR I Phys: KAILA FUNEZ D.O. : [birth year] Age: 72 Sex: F Acct: [id number] Loc: ED Exam Date: 07/13/22 Status: REG Radiology No.: Unit Number: [id number] Exam # Type/Exam [id number] CT / CT ABD/PEL W CONTRAST EXAMINATION: [...] no abnormal fluid collection in the pelvis. Peritoneum/Retroperitoneum : Abdominal aorta is nonaneurysmal. There is no retroperitoneal lymph node enlargement. Bones/Soft Tissues: No acute findings. IMPRESSION: Evidence of partial obstruction in the small intestine at the site of a small bowel anastomosis in distal half of the small intestine. There is no perforation or abscess. Electronically signed By Durga Huang MD 07/14/2022 1:24:12 AM EST Workstation ID : [id number] < > Reported By: DURGA HUANG M.D. Signed In Fluency By: DURGA HUANG M.D. << Signature on File>> Reported By: DURGA HUANG M.D. Signed By: DURGA HUANG M.D. Tests performed at: [address] [address] Normal [facility] EMERGENCY DEPARTMENT REPORTo n 07-14-2022 EMERGENCY [place] [address] HEALTH INFORMATION MANAGEMENT EMERGENCY DEPARTMENT REPORT Patient: ADINA ESCOBAR ELLEN K D.KimberlyFamilia [id number] [age] F Status: DIS IN [facility] 2922-A Date of Service: 07/13/22 ADDENDUM: PAST [...] dictation by Marilee for Report#: Dict ID [id number] / Int ID [id number] 07/23/22 2249 KAILA FUNEZ D.O. cc: SERGIO GOLDMAN,KENTRELL Vyas M.D.; KAILA FUNEZ D.O. << Signature on File>> Reported By: KAILA FUNEZ D.O. Signed By: KAILA FUNEZ D.O. Tests performed at: [place] [address] [place], [place] [address] Normal [facility] EMERGENCY [place] [address] HEALTH INFORMATION MANAGEMENT EMERGENCY DEPARTMENT REPORT Patient: ADINA ESCOBAR I KAILA FUNEZ D.O. [id number] [age] F Status: DIS IN 2SWEST [...] developed DICTATION ENDS HERE. Report#: Dict ID [id number] / Int ID [id number] 07/23/22 2249 KAILA FUNEZ D.O. cc: SERGIO GOLDMAN,KENTRELL Vyas M.D.; KAILA FUNEZ D.O. << Signature on File>> Reported By: KAILA FUNEZ D.O. Signed By: KAILA FUNEZ D.O. Tests performed at: [address] [address] Normal [facility] RAPID COVIDon 07-14-2022 SARS-CoV-2 (COVID-19) RNA RENATA+probe Ql (Unsp spec) Negative Normal NEGATIVE [facility] Comment on above: Result Comment: THIS TEST HAS BEEN AUTHORIZED BY FDA UNDER AN EMERGENCY USE AUTHORIZATION (EUA). NEGATIVE: NEGATIVE FOR COVID19 (SARS-CoV-2) BY PCR POSITIVE: POSITIVE FOR COVID19 (SARS-CoV-2) BY PCR PRESUMPTIVE POSITIVE: POSITIVE BY SINGLE WOO SARS-CoV TARGET. SARS-CoV-1 CANNOT BE EXCLUDED, BUT IS NOT CURRENTLY CIRCULATING IN [place]. Performed By: #### L 200.3190, L200.3001 #### ML - [facility] [address] [place] [address] 71212 SARS-CoV-2 (COVID-19) RNA NA A+probe Ql (Resp)on 07-14-2022 SARS-CoV-2 (COVID-19) RNA RENATA+probe Ql (Unsp spec) Negative NEGATIVE [facility] UA W/C&Son 07-14-2022 Bilirubin Ql (U) Negative Normal NEGATIVE [facility] Comment on above: Order Comment: Urine Specimen Source+ CLEAN CATCH Performed By: #### L 200.3190, L200.3001 #### ML - LABORATORY [address] [place] [address] 38965 Color (U) YELLOW Normal YELLOW [facility] Comment on above: Order Comment: Urine Specimen Source+ CLEAN CATCH Performed By: #### L 200.3190, L200.3001 #### ML - LABORATORY [address] [place] [address] 79934 Glucose Ql (U) Negative Normal NEGATIVE [facility] Comment on above: Order Comment: Urine Specimen Source+ CLEAN CATCH Performed By: #### L 200.3190, L200.3001 #### ML - LABORATORY [address] [place] [address] 56561 Hemoglobin Ql (U) Negative Normal NEGATIVE [facility] Comment on above: Order Comment: Urine Specimen Source+ CLEAN CATCH Performed By: #### L 200.3190, L200.3001 #### ML - LABORATORY [address] [place] [address] 04018 Leukocyte esterase Test strip Ql (U) LARGE Normal NEGATIVE [facility] Comment on above: Order Comment: Urine Specimen Source+ CLEAN CATCH Performed By: #### L 200.3190, L200.3001 #### ML - LABORATORY [address] [place] [address] 48906 Nitrite Ql (U) Negative Normal NEGATIVE [facility] Comment on above: Order Comment: Urine Specimen Source+ CLEAN CATCH Performed By: #### L 200.3190, L200.3001 #### ML - LABORATORY [address] [place] [address] 19333 pH (U) 6.0 [pH] Normal 5.0-8.0 [facility] Comment on above: Order Comment: Urine Specimen Source+ CLEAN CATCH Performed By: #### L 200.3190, L200.3001 #### ML - LABORATORY [address] [place] [address] 10846 Protein Ql (U) Negative Normal NEGATIVE [facility] Comment on above: Order Comment: Urine Specimen Source+ CLEAN CATCH Performed By: #### L 200.3190, L200.3001 #### ML - LABORATORY [address] [place] [address] 25034 URINE APPEARANC CLEAR Normal CLEAR [facility] Comment on above: Order Comment: Urine Specimen Source+ CLEAN CATCH Performed By: #### L 200.3190, L200.3001 #### ML - LABORATORY [address] [place] [address] URINE KETONE Negative Normal NEGATIVE [facility] Comment on above: Order Comment: Urine Specimen Source+ CLEAN CATCH Performed By: #### L 200.3190, L200.3001 #### [facility] [address] [place] [address] 30920 URINE SPECIFIC 1.010 Normal 1.001-1.035 [facility] Comment on above: Order Comment: Urine Specimen Source+ CLEAN CATCH Performed By: #### L 200.3190, L200.3001 #### [facility] [address] [place] [address] URINE UROBILINO 0.2 EU/DL Normal 0.2-1.0 [facility] Comment on above: Order Comment: Urine Specimen Source+ CLEAN CATCH Performed By: #### L 200.3190, L200.3001 #### [facility] [address] [place] [address] 21849 URINE MICROSCOPon 07-14-2022 RENAL EPI FEW Normal NEGATIVE [facility] Comment on above: Order Comment: Urine Specimen Source+ CLEAN CATCH Performed By: #### L 200.3190, L200.3001 #### [facility] [address] [place] [address] 49316 SQUAMOUS MANY Normal NEGATIVE [facility] Comment on above: Order Comment: Urine Specimen Source+ CLEAN CATCH Performed By: #### L 200.3190, L200.3001 #### [facility] [address] [place] [address] 16797 URINE BACTERIA 2+ Normal NEGATIVE [facility] Comment on above: Order Comment: Urine Specimen Source+ CLEAN CATCH Performed By: #### L 200.3190, L200.3001 #### [facility] [address] [place] [address] URINE RBC 1-3 Normal 0-2 [facility] Comment on above: Order Comment: Urine Specimen Source+ CLEAN CATCH Performed By: #### L 200.3190, L200.3001 #### [facility] [address] [place] [address] 25143 URINE WBC 40-50 Normal 0-5 [facility] Comment on above: Order Comment: Urine Specimen Source+ CLEAN CATCH Performed By: #### L 200.6667, L200.3005 #### [facility] [address] [place] [id number] Urine Cultureon 07-14-2022 Bacteria identified Cx Nom (U) CULTURE, URINE MIXED MICROBIOTA >=100,000 CFU/ml Mixed microbiota No further workup. Mixed microbiota can be due to???urine???contamination with skin bacteria at time of collection or presence of a long-term urinary catheter. If a new culture is needed, please consider re-education of the patient on proper midstream co llection technique or straight catheterization for???urine???collection. SOURCE: URINE Test Performed By: [facility] [address] [place] [address] Pens And Pencils Dipper: Sven Wasserman III, M.D. See Below Normal [facility] Basic metabolic 2000 panelon 07-13-2022 Anion gap [Moles/Vol] 16.3 mmol/L 15 - 2 2 mmol/L [facility] Calcium [Mass/Vol] 9.4 mg/dL 8.8 - 10. 2 mg/dL [facility] Chloride [Moles/Vol] 100 mmol/L 98 - 10 7 mmol/L [facility] CO2 [Moles/Vol] 22 mmol/L 22 - 29 mmol/L [facility] Creatinine [Mass/Vol] 0.99 mg/dL High 0.50 - 0.90 mg/dL [facility] eGFR-All Other Races 55 [facility] GFR/1.73 sq M.predicted among blacks MDRD (S/P/Bld) [Vol rate/Area] mL/min/{1.73_m2} [facility] Glucose [Mass/Vol] 111 mg/dL 82 - 115 mg/dL [facility] Potassium [Moles/Vol] 4.3 mmol/L 3.5 - 5.0 mmol/L [facility] Sodium [Moles/Vol] 134 mmol/L Low 135 - 145 mmol/L [facility] Urea nitrogen [Mass/Vol] 8 mg/dL 8 - 23 mg/dL [facility] CBC W Auto Differential pane l (Bld)on 07-13-2022 BASO ABS 0.10 x10(3) 0.00 - 0.10 x10(3) [facility] Basophils/100 WBC (Bld) 0.9 % 0.0 - 1.0 % [facility] EOS ABS 0.10 x10(3) 0.00 - 0.54 x10(3) [facility] Eosinophils/100 WBC (Bld) 0.8 % 0.5 - 4.9 % [facility] Erythrocyte distribution width (RBC) [Ratio] 16.0 % High 12.5 - 15.7 % [facility] Hematocrit (Bld) [Volume fraction] 36.9 % 36.0 - 48.0 % [facility] Hemoglobin (Bld) [Mass/Vol] 12.1 g/dL 12.0 - 16.0 g/dL [facility] LYMPH ABS 3.90 x10(3) High 1.00 - 3.50 x10(3) [facility] Lymphocytes/100 WBC (Bld) 36.4 % 16.0 - 48.0 % [facility] MCH (RBC) [Entitic mass] 28.5 pg 28.5 - 32.9 pg [facility] MCHC (RBC) [Mass/Vol] 32.7 g/dL Low 33.0 - 36.0 g/dL [facility] MCV (RBC) [Entitic vol] 87.1 fL 80.0 - 99.0 fl [facility] MONO ABS 0.80 x10(3) 0.30 - 0.80 x10(3) [facility] Monocytes/100 WBC (Bld) 7.4 % 4.3 - 11.2 % [facility] Neutrophil Ab 5.80 x10(3) 1.40 - 6.50 x10(3) [facility] Neutrophils/100 WBC (Bld) 54.5 % 45.0 - 73.0 % [facility] Platelet Count 371 X10(3) 150 - 450 X10(3) [facility] Platelet mean volume (Bld) [Entitic vol] 8.4 fL 7.5 - 9.5 fl [facility] RBC 4.23 x10(6) 3.30 - 5.00 x10(6) [facility] WBC 10.6 x10(3) High 4.5 - 10.0 x10(3) [facility] CT ABD/PEL W IVCONon 022 [facility] Urinalysis complete panel (U )on 07-13-2022 Appearance (U) CLEAR CLEAR [facility] Bacteria, Urine 2+ NEGATIVE [facility] Bilirubin, Urine Negative NEGATIVE [facility] Blood, Urine Negative NEGATIVE [facility] Color (U) YELLOW YELLOW [facility] Glucose Ql (U) Negative NEGATIVE MG/DL [facility] Ketones Ql (U) Negative NEGATIVE MG/DL [facility] Leukocytes LARGE NEGATIVE [facility] Nitrites Urine Negative NEGATIVE [facility] pH (U) 6.0 [pH] 5.0 - 8.0 [facility] Protein.monoclonal (U) [Mass/Vol] Negative NEGATIVE MG/DL [facility] RBC, Urine 1-3 0 - 2 [facility] Renal Epithelial FEW NEGATIVE [facility] Specific Egan, Ur 1.010 1.001 - 1.035 [facility] Squamous Epithelial Cells MANY NEGATIVE [facility] Urobilinogen, Urine 0.2 EU/DL 0.2 - 1. 0 EU/DL [facility] WBC, Urine 40-50 0 - 5 [facility] BMPon 07-07-2022 Anion gap [Moles/Vol] 18.7 mmol/L Normal 15-22 [facility] Comment on above: Performed By: #### L 100.0030, L100.0010, L100.0350 ####[facility] [id number] [place] [address] Calcium [Mass/Vol] 9.5 mg/dL Normal 8.8-10.2 [facility] Comment on above: Performed By: #### L 100.0030, L100.0010, L100.0350 ####ML [facility] [id number] [place] [address] Chloride [Moles/Vol] 105 mmol/L Normal 98-107 [facility] Comment on above: Performed By: #### L 100.0030, L100.0010, L100.0350 ####ML [facility] [id number] [place] [address] CO2 [Moles/Vol] 20 mmol/L Low 22-29 [facility] Comment on above: Performed By: #### L 100.0030, L100.0010, L100.0350 ####ML [facility] [id number] [place] [address] Creatinine [Mass/Vol] 1.33 mg/dL High 0.50-0.90 [facility] Comment on above: Performed By: #### L 100.0030, L100.0010, L100.0350 ####[facility] [id number] [place] [address] eGFR if AFR ELOISA 48 [facility] Comment on above: Result Comment: eGFR [...] Performed By: #### L 100.0030, L100.0010, L100.0350 ####[facility] [id number] [place] [address] eGFR nonAFR Eloisa 39 [facility] Comment on above: Performed By: #### L 100.0030, L100.0010, L100.0350 ####[facility] [id number] [place] [address] Glucose [Mass/Vol] 99 mg/dL Normal 82-115 [facility] Comment on above: Performed By: #### L 100.0030, L100.0010, L100.0350 ####[facility] [id number] [place] [address] Potassium [Moles/Vol] 4.7 mmol/L Normal 3.5-5.0 [facility] Comment on above: Performed By: #### L 100.0030, L100.0010, L100.0350 ####[facility] [id number] [place] [address] Sodium [Moles/Vol] 139 mmol/L Normal 135-145 [facility] Comment on above: Performed By: #### L 100.0030, L100.0010, L100.0350 ####ML - [id number] [place] [address] Urea nitrogen [Mass/Vol] 14 mg/dL Normal 8-23 [facility] Comment on above: Performed By: #### L 100.0030, L100.0010, L100.0350 ####ML - [id number] [place] [address] Basic metabolic 2000 panelon 07-07-2022 Anion gap [Moles/Vol] 18.7 mmol/L 15 - 2 2 mmol/L [facility] Calcium [Mass/Vol] 9.5 mg/dL 8.8 - 10. 2 mg/dL [facility] Chloride [Moles/Vol] 105 mmol/L 98 - 10 7 mmol/L [facility] CO2 [Moles/Vol] 20 mmol/L Low 22 - 29 mmol/L [facility] Creatinine [Mass/Vol] 1.33 mg/dL High 0.50 - 0.90 mg/dL [facility] eGFR-All Other Races 39 [facility] GFR/1.73 sq M.predicted among blacks MDRD (S/P/Bld) [Vol rate/Area] 48 mL/min/{1.73_m2} [facility] Glucose [Mass/Vol] 99 mg/dL 82 - 115 mg/dL [facility] Potassium [Moles/Vol] 4.7 mmol/L 3.5 - 5.0 mmol/L [facility] Sodium [Moles/Vol] 139 mmol/L 135 - 145 mmol/L [facility] Urea nitrogen [Mass/Vol] 14 mg/dL 8 - 23 mg/dL [facility] CBCon 07-07-2022 BASO# 0.00 x10(3) Normal 0.00-0.10 [facility] Comment on above: Performed By: #### L 301.0100, L301.0120, L301.0105 #### ML - LABORATORY [address] [place] [address] Basophils/100 WBC (Bld) 0.4 % Normal 0.0-1.0 [facility] Comment on above: Performed By: #### L 301.0100, L301.0120, L301.0105 #### - LABORATORY [address] [place] [address] EOS# 0.00 x10(3) Normal 0.00-0.54 [facility] Comment on above: Performed By: #### L 301.0100, L301.0120, L301.0105 #### [facility] [address] [place] [address] Eosinophils/100 WBC (Bld) 0.4 % Low 0.5-4.9 [facility] Comment on above: Performed By: #### L 301.0100, L301.0120, L301.0105 #### [facility] [address] [place] [address] Erythrocyte distribution width (RBC) [Ratio] 16.6 % High 12.5-15.7 [facility] Comment on above: Performed By: #### L 301.0100, L301.0120, L301.0105 #### - LABORATORY [address] [place] [address] Hematocrit (Bld) [Volume fraction] 35.9 % Low 36.0-48.0 [facility] Comment on above: Performed By: #### L 301.0100, L301.0120, L301.0105 #### [facility] [address] [place] [address] Hemoglobin (Bld) [Mass/Vol] 11.4 g/dL Low 12.0-16.0 [facility] Comment on above: Performed By: #### L 301.0100, L301.0120, L301.0105 #### [facility] [address] [place] [address]682 LYMPH# 2.20 x10(3) Normal 1.00-3.50 [facility] Comment on above: Performed By: #### L 301.0100, L301.0120, L301.0105 #### [facility] [address] [place] [address] Lymphocytes/100 WBC (Bld) 25.3 % Normal 16.0-48.0 [facility] Comment on above: Performed By: #### L 301.0100, L301.0120, L301.0105 #### [facility] [address] [place] [address] 08723 MCH (RBC) [Entitic mass] 28.1 pg Low 28.5-32.9 [facility] Comment on above: Performed By: #### L 301.0100, L301.0120, L301.0105 #### - LABORATORY [address] [place] [address] 80436 MCHC (RBC) [Mass/Vol] 31.9 g/dL Low 33.0-36.0 [facility] Comment on above: Performed By: #### L 301.0100, L301.0120, L301.0105 #### [facility] [address] [place] [address] 49270 MCV (RBC) [Entitic vol] 88.2 fL Normal 80.0-99.0 [facility] Comment on above: Performed By: #### L 301.0100, L301.0120, L301.0105 #### [facility] [address] [place] [address] 72089 MONO# 0.60 x10(3) Normal 0.30-0.80 [facility] Comment on above: Performed By: #### L 301.0100, L301.0120, L301.0105 #### [facility] [address] [place] [address] 38221 Monocytes/100 WBC (Bld) 6.7 % Normal 4.3-11.2 [facility] Comment on above: Performed By: #### L 301.0100, L301.0120, L301.0105 #### [facility] [address] [place] [address] 70484 NEUT# 5.70 x10(3) Normal 1.40-6.50 [facility] Comment on above: Performed By: #### L 301.0100, L301.0120, L301.0105 #### ML - LABORATORY [address] [place] [address] 04033 Neutrophils/100 WBC (Bld) 67.2 % Normal 45.0-73.0 [facility] Comment on above: Performed By: #### L 301.0100, L301.0120, L301.0105 #### ML - LABORATORY [address] [place] [address] 78363 Platelet mean volume (Bld) [Entitic vol] 8.1 fL Normal 7.5-9.5 [facility] Comment on above: Performed By: #### L 301.0100, L301.0120, L301.0105 #### [facility] [address] [place] [address] 21023 PLT 332 X10(3) Normal 150-450 [facility] Comment on above: Performed By: #### L 301.0100, L301.0120, L301.0105 #### [facility] [address] [place] [address] 25309 RBC 4.07 x10(6) Normal 3.30-5.00 [facility] Comment on above: Performed By: #### L 301.0100, L301.0120, L301.0105 #### [facility] [address] [place] [address] 73900 WBC 8.5 x10(3) Normal 4.5-10.0 [facility] Comment on above: Performed By: #### L 301.0100, L301.0120, L301.0105 #### - LABORATORY [address] [place] [address] 33886 CBC W Auto Differential pane l (Bld)on 07-07-2022 BASO ABS 0.00 x10(3) 0.00 - 0.10 x10(3) [facility] Basophils/100 WBC (Bld) 0.4 % 0.0 - 1.0 % [facility] EOS ABS 0.00 x10(3) 0.00 - 0.54 x10(3) [facility] Eosinophils/100 WBC (Bld) 0.4 % Low 0.5 - 4.9 % [facility] Erythrocyte distribution width (RBC) [Ratio] 16.6 % High 12.5 - 15.7 % [facility] Hematocrit (Bld) [Volume fraction] 35.9 % Low 36.0 - 48.0 % [facility] Hemoglobin (Bld) [Mass/Vol] 11.4 g/dL Low 12.0 - 16.0 g/dL [facility] LYMPH ABS 2.20 x10(3) 1.00 - 3.50 x10(3) [facility] Lymphocytes/100 WBC (Bld) 25.3 % 16.0 - 48.0 % [facility] MCH (RBC) [Entitic mass] 28.1 pg Low 28.5 - 32.9 pg [facility] MCHC (RBC) [Mass/Vol] 31.9 g/dL Low 33.0 - 36.0 g/dL [facility] MCV (RBC) [Entitic vol] 88.2 fL 80.0 - 99.0 fl [facility] MONO ABS 0.60 x10(3) 0.30 - 0.80 x10(3) [facility] Monocytes/100 WBC (Bld) 6.7 % 4.3 - 11.2 % [facility] Neutrophil Ab 5.70 x10(3) 1.40 - 6.50 x10(3) [facility] Neutrophils/100 WBC (Bld) 67.2 % 45.0 - 73.0 % [facility] Platelet Count 332 X10(3) 150 - 450 X10(3) [facility] Platelet mean volume (Bld) [Entitic vol] 8.1 fL 7.5 - 9.5 fl [facility] RBC 4.07 x10(6) 3.30 - 5.00 x10(6) [facility] WBC 8.5 x10(3) 4.5 - 10.0 x10(3) [facility] EMERGENCY DEPARTMENT REPORTo n 07-07-2022 EMERGENCY [place] [address] HEALTH INFORMATION MANAGEMENT EMERGENCY DEPARTMENT REPORT Patient: ADINA ESCOBARHALINA M.D. [id number] [age] F Status: DEP ER ED Date of Service: 07/07/22 ADDENDUM: This [...] Will be for discharge. Report#: Dict ID [id number] / Int ID [id number] 07/21/22 2216 HALINA MITCHELL M.D. cc: KENTRELL DHALIWAL II, M.D.; HALINA MITCHELL M.D. << Signature on File>> Reported By: HALINA MITCHELL M.D. Signed By: HALINA MITCHELL M.D. Tests performed at: [address] [address] Normal [facility] EMERGENCY [place] [address] HEALTH INFORMATION MANAGEMENT EMERGENCY DEPARTMENT REPORT Patient: ADINA ESCOBAR I HALINA MITCHELL M.D. [id number] [age] F Status: [facility] ED Date of Service: 07/07/22 CHIEF COMPLAINT: [...] workup and clinical condition. Report#: Dict ID [id number] / Int ID [id number] 07/21/22 2216 HALINA MITCHELL M.D. cc: KENTRELL DHALIWAL II, M.D.; HALINA MITCHELL M.D. << Signature on File>> Reported By: HALINA MITCHELL M.D. Signed By: HALINA MITCHELL M.D. Tests performed at: [address] [address] Normal [facility] HEPATIC PANELon 07-07-2022 A:G RATIO 1.25 Normal 1.1-2.5 [facility] Comment on above: Performed By: #### L 100.0030, L100.0010, L100.0350 ####ML - [id number] [place] [address] Albumin [Mass/Vol] 3.9 g/dL Normal 3.5-5.2 [facility] Comment on above: Performed By: #### L 100.0030, L100.0010, L100.0350 ####ML - UH SAPYVMZSZN187 [place] [address] ALK. PHOS 117 U/L High 35-105 [facility] Comment on above: Performed By: #### L 100.0030, L100.0010, L100.0350 ####ML - [facility] [id number] [place] [address] ALT [Catalytic activity/Vol] 18 U/L Normal 5-33 [facility] Comment on above: Performed By: #### L 100.0030, L100.0010, L100.0350 ####[facility] [address] [place] [address]47 AST [Catalytic activity/Vol] 24 U/L Normal 5-32 [facility] Comment on above: Performed By: #### L 100.0030, L100.0010, L100.0350 ####[facility] [id number] [place] [address]32 Bilirubin [Mass/Vol] 0.5 mg/dL Normal 0.2-1.2 [facility] Comment on above: Performed By: #### L 100.0030, L100.0010, L100.0350 ####[facility] [address] [place] [address] DIRECT BILIRUBI <0.2 Normal 0.0-0.3 [facility] Comment on above: Performed By: #### L 100.0030, L100.0010, L100.0350 ####[facility] [address] [place] [address]307 Globulin (S) [Mass/Vol] 3.1 g/dL Normal 1.5-4.5 [facility] Comment on above: Performed By: #### L 100.0030, L100.0010, L100.0350 ####[facility] [address] [place] [address] 12660 Protein [Mass/Vol] 7.0 g/dL Normal 6.4-8.3 [facility] Comment on above: Performed By: #### L 100.0030, L100.0010, L100.0350 ####[facility] [address] [place] [address] 76279 Hepatic function 2000 [facility] 07-07-2022 Albumin [Mass/Vol] 3.9 g/dL 3.5 - 5.2 g/dL [facility] Albumin/Globulin [Mass ratio] 1.25 {ratio} 1.1 - 2.5 [facility] ALP [Catalytic activity/Vol] 117 U/L High 35 - 105 U/L [facility] ALT [Catalytic activity/Vol] 18 U/L 5 - 33 U/L [facility] AST [Catalytic activity/Vol] 24 U/L 5 - 32 U/L [facility] Bilirubin [Mass/Vol] 0.5 mg/dL 0.2 - 1 .2 mg/dL [facility] Direct Bilirubin <0.2 0.0 - 0.3 mg/dL [facility] Globulin (S) [Mass/Vol] 3.1 g/dL 1.5 - 4.5 g/dL [facility] Protein [Mass/Vol] 7.0 g/dL 6.4 - 8.3 g/dL [facility] LIPASEon 07-07-2022 Lipase [Catalytic activity/Vol] 27 U/L Normal -60 [facility] Comment on above: Performed By: #### L 301.0100, L301.0120, L301.0105 #### ML - LABORATORY [address] [place] [address] 22760 LIPASE BLDon 07-07-2022 Lipase [Catalytic activity/Vol] 27 U/L - 60 U/L [facility] UA W/C&Son 07-07-2022 Bilirubin Ql (U) Negative Normal NEGATIVE [facility] Comment on above: Order Comment: Urine Specimen Source+ CLEAN CATCH Performed By: #### L 200.0010 #### ML [facility] [address] [place] [address] 02254 Color (U) YELLOW Normal YELLOW [facility] Comment on above: Order Comment: Urine Specimen Source+ CLEAN CATCH Performed By: #### L 200.0010 #### ML [facility] [address] [place] [address] 04530 Glucose Ql (U) Negative Normal NEGATIVE [facility] Comment on above: Order Comment: Urine Specimen Source+ CLEAN CATCH Performed By: #### L 200.0010 #### [facility] [address] [place] [address] 93623 Hemoglobin Ql (U) Negative Normal NEGATIVE [facility] Comment on above: Order Comment: Urine Specimen Source+ CLEAN CATCH Performed By: #### L 200.0010 #### ML [facility] [address] [place] [address] 05219 Leukocyte esterase Test strip Ql (U) SMALL Normal NEGATIVE [facility] Comment on above: Order Comment: Urine Specimen Source+ CLEAN CATCH Performed By: #### L 200.0010 #### ML - LABORATORY [address] [place] [address] 39011 Nitrite Ql (U) Positive Normal NEGATIVE [facility] Comment on above: Order Comment: Urine Specimen Source+ CLEAN CATCH Performed By: #### L 200.0010 #### ML - LABORATORY [address] [place] [address] 13587 pH (U) 6.0 [pH] Normal 5.0-8.0 [facility] Comment on above: Order Comment: Urine Specimen Source+ CLEAN CATCH Performed By: #### L 200.0010 #### ML - LABORATORY [address] [place] [address] 21368 Protein Ql (U) Negative Normal NEGATIVE [facility] Comment on above: Order Comment: Urine Specimen Source+ CLEAN CATCH Performed By: #### L 200.0010 #### ML - LABORATORY [address] [place] [address] 85537 URINE APPEARANC CLEAR Normal CLEAR [facility] Comment on above: Order Comment: Urine Specimen Source+ CLEAN CATCH Performed By: #### L 200.0010 #### ML - LABORATORY [address] [place] [address] 32821 URINE KETONE Negative Normal NEGATIVE [facility] Comment on above: Order Comment: Urine Specimen Source+ CLEAN CATCH Performed By: #### L 200.0010 #### ML - LABORATORY [address] [place] [address] 57900 URINE SPECIFIC 1.015 Normal 1.001-1.035 [facility] Comment on above: Order Comment: Urine Specimen Source+ CLEAN CATCH Performed By: #### L 200.0010 #### ML - LABORATORY [address] [place] [address] 24878 URINE UROBILINO 0.2 EU/DL Normal 0.2-1.0 [facility] Comment on above: Order Comment: Urine Specimen Source+ CLEAN CATCH Performed By: #### L 200.0010 #### ML - LABORATORY [address] [place] [address] 53932 URINE MICROSCOPon 07-07-2022 AMORPHOUS TR Normal NEGATIVE [facility] Comment on above: Order Comment: Urine Specimen Source+ CLEAN CATCH Performed By: #### L 200.0010 #### ML - [facility] [address] [place] [address] 41147 Mucus Ql (Urine sed) TR Normal NEGATIVE [facility] Comment on above: Order Comment: Urine Specimen Source+ CLEAN CATCH Performed By: #### L 200.0010 #### ML - [facility] [address] [place] [address] 92270 SQUAMOUS OCC Normal NEGATIVE [facility] Comment on above: Order Comment: Urine Specimen Source+ CLEAN CATCH Performed By: #### L 200.0010 #### ML - [facility] [address] [place] [address] 45404 URINE BACTERIA 3+ Normal NEGATIVE [facility] Comment on above: Order Comment: Urine Specimen Source+ CLEAN CATCH Performed By: #### L 200.0010 #### ML - [facility] [address] [place] [address] 61362 URINE RBC 10-20 Normal 0-2 [facility] Comment on above: Order Comment: Urine Specimen Source+ CLEAN CATCH Performed By: #### L 200.0010 #### ML - [facility] [address] [place] [address] 80937 URINE WBC 40-50 Normal 0-5 [facility] Comment on above: Order Comment: Urine Specimen Source+ CLEAN CATCH Performed By: #### L 200.0010 #### ML - [facility] [address] [place] [address] 61043 Urinalysis complete panel (U )on 07-07-2022 Amorphous Crystals TR NEGATIVE [facility] Appearance (U) CLEAR CLEAR [facility] Bacteria, Urine 3+ NEGATIVE [facility] Bilirubin, Urine Negative NEGATIVE [facility] Blood, Urine Negative NEGATIVE [facility] Color (U) YELLOW YELLOW [facility] Glucose Ql (U) Negative NEGATIVE MG/DL [facility] Ketones Ql (U) Negative NEGATIVE MG/DL [facility] Leukocytes SMALL NEGATIVE [facility] Nitrites Urine Positive NEGATIVE [facility] pH (U) 6.0 [pH] 5.0 - 8.0 [facility] Protein.monoclonal (U) [Mass/Vol] Negative NEGATIVE MG/DL [facility] RBC, Urine 10-20 0 - 2 [facility] Specific Egan, Ur 1.015 1.001 - 1.035 [facility] Squamous Epithelial Cells OCC NEGATIVE [facility] Ur Mucous TR NEGATIVE [facility] Urobilinogen, Urine 0.2 EU/DL 0.2 - 1. 0 EU/DL [facility] WBC, Urine 40-50 0 - 5 [facility] Urine Cultureon 07-07-2022 Bacteria identified Cx Nom [...] and its performance characteristics determined by the [facility]'s [facility] Medicine [place] ([facility]). It has not been cleared or approved by the FDA. -[facility] is regulated under CLIA as qualified to perform high-complexity testing. This test is used for clinical purposes. It should not be regarded as investigational or for research. SOURCE: Urine, Midstream clean catch Test Performed By: [facility] [address] [place] [address] Pens And Pencils Dipper: Sven Wasserman III, M.D. See Below Normal [facility] CLINICAL RESUMEon 05-13-2022 CLINICAL [place] [address] HEALTH INFORMATION MANAGEMENT CLINICAL RESUME Patient: ADINA ESCOBAR I JD WAITE M.D. [id number] [age] F [facility] Date of Admission: 05/10/22 Date of [...] DISCHARGE TIME: 35 minutes. Report#: Dict ID [id number] / Int ID [id number] 05/13/22 1042 JD WAITE M.D. cc: JD WAITE M.D. << Signature on File>> Reported By: JD WAITE M.D. Signed By: JD WAITE M.D. Tests performed at: [place] [address] Normal [facility] CBCon 05-12-2022 BASO# 0.10 x10(3) Normal 0.00-0.10 [facility] Comment on above: Performed By: #### L 200.0010 #### ML - LABORATORY [address] [place] [address] 38132 Basophils/100 WBC (Bld) 0.8 % Normal 0.0-1.0 [facility] Comment on above: Performed By: #### L 200.0010 #### ML - LABORATORY [address] [place] [address] [id number] EOS# 0.10 x10(3) Normal 0.00-0.54 [facility] Comment on above: Performed By: #### L 200.0010 #### ML - LABORATORY [address] [place] [address] 18133 Eosinophils/100 WBC (Bld) 1.0 % Normal 0.5-4.9 [facility] Comment on above: Performed By: #### L 200.0010 #### ML - LABORATORY [address] [place] [address] 68083 Erythrocyte distribution width (RBC) [Ratio] 18.0 % High 12.5-15.7 [facility] Comment on above: Performed By: #### L 200.0010 #### [facility] - LABORATORY [address] [place] [address] 30385 Hematocrit (Bld) [Volume fraction] 29.6 % Low 36.0-48.0 [facility] Comment on above: Performed By: #### L 200.0010 #### [facility] - LABORATORY [address] [place] [address] 38740 Hemoglobin (Bld) [Mass/Vol] 9.7 g/dL Low 12.0-16.0 [facility] Comment on above: Performed By: #### L 200.0010 #### [facility] - LABORATORY [address] [place] [address] 96823 LYMPH# 2.40 x10(3) Normal 1.00-3.50 [facility] Comment on above: Performed By: #### L 200.0010 #### ML - LABORATORY [address] [place] [address] 33075 Lymphocytes/100 WBC (Bld) 22.5 % Normal 16.0-48.0 [facility] Comment on above: Performed By: #### L 200.0010 #### [facility] [address] [place] [address] 82919 MCH (RBC) [Entitic mass] 28.1 pg Low 28.5-32.9 [facility] Comment on above: Performed By: #### L 200.0010 #### ML [facility] [address] [place] [address] 39477 MCHC (RBC) [Mass/Vol] 32.8 g/dL Low 33.0-36.0 [facility] Comment on above: Performed By: #### L 200.0010 #### ML [facility] [address] [place] [address] 11119 MCV (RBC) [Entitic vol] 85.5 fL Normal 80.0-99.0 [facility] Comment on above: Performed By: #### L 200.0010 #### [facility] [address] [place] [address] 40454 MONO# 1.00 x10(3) High 0.30-0.80 [facility] Comment on above: Performed By: #### L 200.0010 #### ML [facility] [address] [place] [address] 96128 Monocytes/100 WBC (Bld) 9.0 % Normal 4.3-11.2 [facility] Comment on above: Performed By: #### L 200.0010 #### [facility] [address] [place] [address] 41680 NEUT# 7.20 x10(3) High 1.40-6.50 [facility] Comment on above: Performed By: #### L 200.0010 #### [facility] [address] [place] [address] 27312 Neutrophils/100 WBC (Bld) 66.7 % Normal 45.0-73.0 [facility] Comment on above: Performed By: #### L 200.0010 #### [facility] [address] [place] [address] 09634 Platelet mean volume (Bld) [Entitic vol] 8.6 fL Normal 7.5-9.5 [facility] Comment on above: Performed By: #### L 200.0010 #### [facility] [address] [place] [address] 18825 PLT 299 X10(3) Normal 150-450 [facility] Comment on above: Performed By: #### L 200.0010 #### [facility] [address] [place] [address] 54875 RBC 3.46 x10(6) Normal 3.30-5.00 [facility] Comment on above: Performed By: #### L 200.0010 #### [facility] [address] [place] [address] 14741 WBC 10.8 x10(3) High 4.5-10.0 [facility] Comment on above: Performed By: #### L 200.0010 #### [facility] [address] [place] [address] 00632 BASO# 0.10 x10(3) Normal 0.00-0.10 [facility] Comment on above: Performed By: #### L 200.0010 #### [facility] [address] [place] [address] 77880 Basophils/100 WBC (Bld) 0.5 % Normal 0.0-1.0 [facility] Comment on above: Performed By: #### L 200.0010 #### [facility] [address] [place] [address] 43734 EOS# 0.10 x10(3) Normal 0.00-0.54 [facility] Comment on above: Performed By: #### L 200.0010 #### [facility] [address] [place] [address] 25548 Eosinophils/100 WBC (Bld) 1.0 % Normal 0.5-4.9 [facility] Comment on above: Performed By: #### L 200.0010 #### [facility] [address] [place] [address] 00031 Erythrocyte distribution width (RBC) [Ratio] 18.1 % High 12.5-15.7 [facility] Comment on above: Performed By: #### L 200.0010 #### ML [facility] [address] [place] [address] 86653 Hematocrit (Bld) [Volume fraction] 27.3 % Low 36.0-48.0 [facility] Comment on above: Performed By: #### L 200.0010 #### ML [facility] [address] [place] [address] 03066 Hemoglobin (Bld) [Mass/Vol] 9.0 g/dL Low 12.0-16.0 [facility] Comment on above: Performed By: #### L 200.0010 #### [facility] [address] [place] [address] 33866 LYMPH# 2.50 x10(3) Normal 1.00-3.50 [facility] Comment on above: Performed By: #### L 200.0010 #### ML [facility] [address] [place] [address] 27528 Lymphocytes/100 WBC (Bld) 21.5 % Normal 16.0-48.0 [facility] Comment on above: Performed By: #### L 200.0010 #### ML [facility] [address] [place] [address] 71834 MCH (RBC) [Entitic mass] 28.2 pg Low 28.5-32.9 [facility] Comment on above: Performed By: #### L 200.0010 #### ML [facility] [address] [place] [address] 37191 MCHC (RBC) [Mass/Vol] 33.1 g/dL Normal 33.0-36.0 [facility] Comment on above: Performed By: #### L 200.0010 #### ML [facility] [address] [place] [address] 02725 MCV (RBC) [Entitic vol] 85.2 fL Normal 80.0-99.0 [facility] Comment on above: Performed By: #### L 200.0010 #### ML [facility] [address] [place] [address] 49870 MONO# 1.30 x10(3) High 0.30-0.80 [facility] Comment on above: Performed By: #### L 200.0010 #### ML [facility] [address] [place] [address] 99832 Monocytes/100 WBC (Bld) 11.1 % Normal 4.3-11.2 [facility] Comment on above: Performed By: #### L 200.0010 #### ML - LABORATORY [address] [place] [address] 03682 NEUT# 7.60 x10(3) High 1.40-6.50 [facility] Comment on above: Performed By: #### L 200.0010 #### ML [facility] [address] [place] [address] 03879 Neutrophils/100 WBC (Bld) 65.9 % Normal 45.0-73.0 [facility] Comment on above: Performed By: #### L 200.0010 #### ML [facility] [address] [place] [address] 14818 Platelet mean volume (Bld) [Entitic vol] 8.6 fL Normal 7.5-9.5 [facility] Comment on above: Performed By: #### L 200.0010 #### ML [facility] [address] [place] [address] 29839 PLT 293 X10(3) Normal 150-450 [facility] Comment on above: Performed By: #### L 200.0010 #### ML [facility] [address] [place] [address] 48509 RBC 3.21 x10(6) Low 3.30-5.00 [facility] Comment on above: Performed By: #### L 200.0010 #### [facility] - LABORATORY [address] [place] [address] 14394 WBC 11.6 x10(3) High 4.5-10.0 [facility] Comment on above: Performed By: #### L 200.0010 #### ML [facility] [address] [place] [address] 41434 PROGRESS NOTEon 05-12-2022 [place] [address] HEALTH INFORMATION MANAGEMENT PROGRESS NOTE Patient: ADINA ESCOBAR I KENTRELL PACHECO M.D. [id number] [age] F Status: DIS IN SDCENTRAL 2054-A DATE OF PROGRESS NOTE: 05/12/2022 TIME: 10 [...] off. Available as needed. Report#: Dict ID [id number] / Int ID [id number] KENTRELL PACHECO M.D. cc: KENTRELL PACHECO M.D. << Signature on File>> Reported By: KENTRELL PACHECO M.D. Signed By: KENTRELL PACHECO M.D. Tests performed at: [address] [address] Normal [facility] RENALon 05-12-2022 Albumin [Mass/Vol] 3.2 g/dL Low 3.5-5.2 [facility] Comment on above: Performed By: #### L 301.0100, L301.0120, L301.0105 #### [facility] [address] [place] [address] 17408 Anion gap [Moles/Vol] 13.1 mmol/L Low 15-22 [facility] Comment on above: Performed By: #### L 301.0100, L301.0120, L301.0105 #### [facility] [address] [place] [address] 24184 Calcium [Mass/Vol] 8.5 mg/dL Low 8.8-10.2 [facility] Comment on above: Performed By: #### L 301.0100, L301.0120, L301.0105 #### - LABORATORY [address] [place] [address] Chloride [Moles/Vol] 110 mmol/L High 98-107 [facility] Comment on above: Performed By: #### L 301.0100, L301.0120, L301.0105 #### [facility] [address] [place] [address] 90730 CO2 [Moles/Vol] 22 mmol/L Normal 22-29 [facility] Comment on above: Performed By: #### L 301.0100, L301.0120, L301.0105 #### [facility] [address] [place] [address] 45158 Creatinine [Mass/Vol] 0.80 mg/dL Normal 0.50-0.90 [facility] Comment on above: Performed By: #### L 301.0100, L301.0120, L301.0105 #### [facility] [address] [place] [address] 60446 eGFR if AFR ELOISA > 60 ml/min/1.73m2 Normal [facility] Comment on above: Result Comment: eGFR >= [...] 301.0100, L301.0120, L301.0105 #### ML - LABORATORY [address] [place] [address] 88819 eGFR nonAFR Eloisa > 60 ml/Min/1.73m2 Normal [facility] Comment on above: Performed By: #### L 301.0100, L301.0120, L301.0105 #### [facility] - LABORATORY [address] [place] [address] 85482 Glucose [Mass/Vol] 83 mg/dL Normal 82-115 [facility] Comment on above: Performed By: #### L 301.0100, L301.0120, L301.0105 #### [facility] - LABORATORY [address] [place] [address] 71761 Phosphate [Mass/Vol] 1.8 mg/dL Low 2.5-4.5 [facility] Comment on above: Performed By: #### L 301.0100, L301.0120, L301.0105 #### [facility] - LABORATORY [address] [place] [address] 72311 Potassium [Moles/Vol] 3.1 mmol/L Low 3.5-5.0 [facility] Comment on above: Performed By: #### L 301.0100, L301.0120, L301.0105 #### [facility] - LABORATORY [address] [place] [address] 39004 Sodium [Moles/Vol] 142 mmol/L Normal 135-145 [facility] Comment on above: Performed By: #### L 301.0100, L301.0120, L301.0105 #### [facility] - LABORATORY [address] [place] [address] 15040 Urea nitrogen [Mass/Vol] 6 mg/dL Low 8-23 [facility] Comment on above: Performed By: #### L 301.0100, L301.0120, L301.0105 #### ML - LABORATORY [address] [place] [address] [place] [address] BMPon 05-11-2022 Anion gap [Moles/Vol] 16.1 mmol/L Normal 15-22 [facility] Comment on above: Performed By: #### L 301.0100, L301.0120, L301.0105 #### [facility] - LABORATORY [address] [place] [address] 39462 Calcium [Mass/Vol] 8.8 mg/dL Normal 8.8-10.2 [facility] Comment on above: Performed By: #### L 301.0100, L301.0120, L301.0105 #### - LABORATORY [address] [place] [address] 86405 Chloride [Moles/Vol] 105 mmol/L Normal 98-107 [facility] Comment on above: Performed By: #### L 301.0100, L301.0120, L301.0105 #### - LABORATORY [address] [place] [address] 72066 CO2 [Moles/Vol] 21 mmol/L Low 22-29 [facility] Comment on above: Performed By: #### L 301.0100, L301.0120, L301.0105 #### - LABORATORY [address] [place] [address] 50537 Creatinine [Mass/Vol] 0.83 mg/dL Normal 0.50-0.90 [facility] Comment on above: Performed By: #### L 301.0100, L301.0120, L301.0105 #### - LABORATORY [address] [place] [address] 96650 eGFR if AFR ELOISA > 60 ml/min/1.73m2 Normal [facility] Comment on above: Result Comment: eGFR >= [...] L 301.0100, L301.0120, L301.0105 #### - LABORATORY [address] [place] [address] 06368 eGFR nonAFR Eloisa > 60 ml/Min/1.73m2 Normal [facility] Comment on above: Performed By: #### L 301.0100, L301.0120, L301.0105 #### [facility] - LABORATORY [address] [place] [address] 46881 Glucose [Mass/Vol] 94 mg/dL Normal 82-115 [facility] Comment on above: Performed By: #### L 301.0100, L301.0120, L301.0105 #### [facility] - [facility]ATORY [address] [place] [address] 87068 Potassium [Moles/Vol] 4.1 mmol/L Normal 3.5-5.0 [facility] Comment on above: Performed By: #### L 301.0100, L301.0120, L301.0105 #### [facility] - LAB[facility]ATORY [address] [place] [address] 38679 Sodium [Moles/Vol] 138 mmol/L Normal 135-145 [facility] Comment on above: Performed By: #### L 301.0100, L301.0120, L301.0105 #### [facility] - [facility]ATORY [address] [place] [address] 31602 Urea nitrogen [Mass/Vol] 6 mg/dL Low 8-23 [facility] Comment on above: Performed By: #### L 301.0100, L301.0120, L301.0105 #### [facility] - LABORATORY [address] [place] [address] 40595 CBCon 05-11-2022 BASO# 0.10 x10(3) Normal 0.00-0.10 [facility] Comment on above: Performed By: #### L 301.0100, L301.0120, L301.0105 #### [facility] - LABORATORY [address] [place] [address] 53797 Basophils/100 WBC (Bld) 0.9 % Normal 0.0-1.0 [facility] Comment on above: Performed By: #### L 301.0100, L301.0120, L301.0105 #### [facility] - LABORATORY [address] [place] [address] 43869 EOS# 0.00 x10(3) Normal 0.00-0.54 [facility] Comment on above: Performed By: #### L 301.0100, L301.0120, L301.0105 #### - LABORATORY [address] [place] [address] 86885 Eosinophils/100 WBC (Bld) 0.1 % Low 0.5-4.9 [facility] Comment on above: Performed By: #### L 301.0100, L301.0120, L301.0105 #### [facility] [address] [place] [address] 07184 Erythrocyte distribution width (RBC) [Ratio] 18.5 % High 12.5-15.7 [facility] Comment on above: Performed By: #### L 301.0100, L301.0120, L301.0105 #### [facility] [address] [place] [address] 15203 Hematocrit (Bld) [Volume fraction] 31.0 % Low 36.0-48.0 [facility] Comment on above: Performed By: #### L 301.0100, L301.0120, L301.0105 #### [facility] [address] [place] [address] 34961 Hemoglobin (Bld) [Mass/Vol] 10.2 g/dL Low 12.0-16.0 [facility] Comment on above: Performed By: #### L 301.0100, L301.0120, L301.0105 #### [facility] [address] [place] [address] 24105 LYMPH# 2.30 x10(3) Normal 1.00-3.50 [facility] Comment on above: Performed By: #### L 301.0100, L301.0120, L301.0105 #### [facility] [address] [place] [address] 40403 Lymphocytes/100 WBC (Bld) 17.0 % Normal 16.0-48.0 [facility] Comment on above: Performed By: #### L 301.0100, L301.0120, L301.0105 #### [facility] - LABORATORY [address] [place] [address] 02264 MCH (RBC) [Entitic mass] 28.3 pg Low 28.5-32.9 [facility] Comment on above: Performed By: #### L 301.0100, L301.0120, L301.0105 #### - LABORATORY [address] [place] [address] 19351 MCHC (RBC) [Mass/Vol] 33.0 g/dL Normal 33.0-36.0 [facility] Comment on above: Performed By: #### L 301.0100, L301.0120, L301.0105 #### [facility] - LABORATORY [address] [place] [address] 07941 MCV (RBC) [Entitic vol] 85.8 fL Normal 80.0-99.0 [facility] Comment on above: Performed By: #### L 301.0100, L301.0120, L301.0105 #### - LABORATORY [address] [place] [address] 86763 MONO# 1.10 x10(3) High 0.30-0.80 [facility] Comment on above: Performed By: #### L 301.0100, L301.0120, L301.0105 #### [facility] - LABORATORY [address] [place] [address] 12640 Monocytes/100 WBC (Bld) 7.8 % Normal 4.3-11.2 [facility] Comment on above: Performed By: #### L 301.0100, L301.0120, L301.0105 #### - LABORATORY [address] [place] [address] 53832 NEUT# 10.00 x10(3) High 1.40-6.50 [facility] Comment on above: Performed By: #### L 301.0100, L301.0120, L301.0105 #### [facility] [address] [place] [address] 86697 Neutrophils/100 WBC (Bld) 74.2 % High 45.0-73.0 [facility] Comment on above: Performed By: #### L 301.0100, L301.0120, L301.0105 #### [facility] - LABORATORY [address] [place] [address] 29757 Platelet mean volume (Bld) [Entitic vol] 8.5 fL Normal 7.5-9.5 [facility] Comment on above: Performed By: #### L 301.0100, L301.0120, L301.0105 #### [facility] - LABORATORY [address] [place] [address] 13039 PLT 337 X10(3) Normal 150-450 [facility] Comment on above: Performed By: #### L 301.0100, L301.0120, L301.0105 #### ML - LABORATORY [address] [place] [address] 89834 RBC 3.61 x10(6) Normal 3.30-5.00 [facility] Comment on above: Performed By: #### L 301.0100, L301.0120, L301.0105 #### [facility] - LAB[facility]ATORY [address] [place] [address] 70416 WBC 13.5 x10(3) High 4.5-10.0 [facility] Comment on above: Performed By: #### L 301.0100, L301.0120, L301.0105 #### [facility] [address] [place] [address] 29911 BASO# 0.00 x10(3) Normal 0.00-0.10 [facility] Comment on above: Performed By: #### L 200.0010 #### [facility] - LABORATORY [address] [place] [address] 15495 Basophils/100 WBC (Bld) 0.3 % Normal 0.0-1.0 [facility] Comment on above: Performed By: #### L 200.0010 #### [facility] - LABORATORY [address] [place] [address] 17000 EOS# 0.00 x10(3) Normal 0.00-0.54 [facility] Comment on above: Performed By: #### L 200.0010 #### ML - LABORATORY [address] [place] [address] 95306 Eosinophils/100 WBC (Bld) 0.2 % Low 0.5-4.9 [facility] Comment on above: Performed By: #### L 200.0010 #### ML [facility] [address] [place] [address] 59903 Erythrocyte distribution width (RBC) [Ratio] 18.6 % High 12.5-15.7 [facility] Comment on above: Performed By: #### L 200.0010 #### [facility] - LABORATORY [address] [place] [address] 12580 Hematocrit (Bld) [Volume fraction] 29.0 % Low 36.0-48.0 [facility] Comment on above: Performed By: #### L 200.0010 #### ML [facility] [address] [place] [address] 89997 Hemoglobin (Bld) [Mass/Vol] 9.7 g/dL Low 12.0-16.0 [facility] Comment on above: Performed By: #### L 200.0010 #### ML [facility] [address] [place] [address] 15260 LYMPH# 2.30 x10(3) Normal 1.00-3.50 [facility] Comment on above: Performed By: #### L 200.0010 #### ML [facility] [address] [place] [address] 57615 Lymphocytes/100 WBC (Bld) 16.8 % Normal 16.0-48.0 [facility] Comment on above: Performed By: #### L 200.0010 #### ML - LABORATORY [address] [place] [address] 84095 MCH (RBC) [Entitic mass] 28.5 pg Normal 28.5-32.9 [facility] Comment on above: Performed By: #### L 200.0010 #### ML [facility] [address] [place] [address] 24228 MCHC (RBC) [Mass/Vol] 33.7 g/dL Normal 33.0-36.0 [facility] Comment on above: Performed By: #### L 200.0010 #### ML [facility] [address] [place] [address] 81695 MCV (RBC) [Entitic vol] 84.8 fL Normal 80.0-99.0 [facility] Comment on above: Performed By: #### L 200.0010 #### [facility] [address] [place] [address] 55411 MONO# 1.40 x10(3) High 0.30-0.80 [facility] Comment on above: Performed By: #### L 200.0010 #### ML [facility] [address] [place] [address] 49603 Monocytes/100 WBC (Bld) 10.0 % Normal 4.3-11.2 [facility] Comment on above: Performed By: #### L 200.0010 #### [facility] [address] [place] [address] 62774 NEUT# 9.80 x10(3) High 1.40-6.50 [facility] Comment on above: Performed By: #### L 200.0010 #### ML [facility] [address] [place] [address] 09268 Neutrophils/100 WBC (Bld) 72.7 % Normal 45.0-73.0 [facility] Comment on above: Performed By: #### L 200.0010 #### [facility] [address] [place] [address] 69288 Platelet mean volume (Bld) [Entitic vol] 8.2 fL Normal 7.5-9.5 [facility] Comment on above: Performed By: #### L 200.0010 #### ML [facility] [address] [place] [address] 15815 PLT 322 X10(3) Normal 150-450 [facility] Comment on above: Performed By: #### L 200.0010 #### [facility] [address] [place] [address] 43978 RBC 3.42 x10(6) Normal 3.30-5.00 [facility] Comment on above: Performed By: #### L 200.0010 #### [facility] [address] [place] [address] 18335 WBC 13.5 x10(3) High 4.5-10.0 [facility] Comment on above: Performed By: #### L 200.0010 #### [facility] [address] [place] [address] 09852 PROGRESS NOTEon 05-11-2022 PROGRESS NOTE [facility] [address] HEALTH INFORMATION MANAGEMENT PROGRESS NOTE Patient: ADINA ESCOBAR I KENTRELL PACHECO M.D. [id number] [age] F Status: DIS IN SDCENTRAL 2054-A DATE OF PROGRESS NOTE: 05/11/2022 TIME: 9 [...] have to go probably to the [facility] [place]. 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 We will check back tomorrow. Report#: Dict ID [id number] / Int ID [id number] KENTRELL PACHECO M.D. cc: KENTRELL PACHECO M.D. << Signature on File>> Reported By: KENTRELL PACHECO M.D. Signed By: KENTRELL PACHECO M.D. Tests performed at: [address] [place] [address] Normal [facility] RENALon 05-11-2022 Albumin [Mass/Vol] 3.6 g/dL Normal 3.5-5.2 [facility] Comment on above: Performed By: #### L 301.0100, L301.0120, L301.0105 #### [facility] [address] [place] [address] Phosphate [Mass/Vol] 3.1 mg/dL Normal 2.5-4.5 [facility] Comment on above: Performed By: #### L 301.0100, L301.0120, L301.0105 #### [facility] [address] [place] [address] 03960 ABDOMEN (KUB)1 VIEWon 2021 ABDOMEN (KUB)[address] [address] Name: ADINA ESCOBAR I Phys: JD WAITE M.D. : [birth year] Age: 71 Sex: F Acct: [id number] Loc: [facility] Exam Date: 05/10/22 Status: ADM [facility] No.: Unit Number: [id number] Exam # Type/Exam [id number] RAD / ABDOMEN (KUB)1 VIEW EXAMINATION: Exam [...] 05/10/2022 12:35:45 PM EST Workstation ID : [id number] < > Reported By: VLADIMIR GARCIA D.O. Signed In Fluency By: VLADIMIR GARCIA D.O. << Signature on File>> Reported By: VLADIMIR GARCIA D.O. Signed By: VLADIMIR GARCIA D.O. Tests performed at: [place] [address] Normal [facility] CBCon 05-10-2022 BASO# 0.10 x10(3) Normal 0.00-0.10 [facility] Comment on above: Performed By: #### L 301.0100, L301.0120, L301.0105 #### - LABORATORY [address] [place] [address] 67087 Basophils/100 WBC (Bld) 0.6 % Normal 0.0-1.0 [facility] Comment on above: Performed By: #### L 301.0100, L301.0120, L301.0105 #### - LABORATORY [address] [place] [address] 21806 EOS# 0.00 x10(3) Normal 0.00-0.54 [facility] Comment on above: Performed By: #### L 301.0100, L301.0120, L301.0105 #### - LABORATORY [address] [place] [address] 23470 Eosinophils/100 WBC (Bld) 0.1 % Low 0.5-4.9 [facility] Comment on above: Performed By: #### L 301.0100, L301.0120, L301.0105 #### - LABORATORY [address] [place] [address] 31668 Erythrocyte distribution width (RBC) [Ratio] 18.3 % High 12.5-15.7 [facility] Comment on above: Performed By: #### L 301.0100, L301.0120, L301.0105 #### - LABORATORY [address] [place] [address] 27258 Hematocrit (Bld) [Volume fraction] 30.8 % Low 36.0-48.0 [facility] Comment on above: Performed By: #### L 301.0100, L301.0120, L301.0105 #### - LABORATORY [address] [place] [address] 16120 Hemoglobin (Bld) [Mass/Vol] 10.1 g/dL Low 12.0-16.0 [facility] Comment on above: Performed By: #### L 301.0100, L301.0120, L301.0105 #### [facility] [address] [place] [address] 75923 LYMPH# 1.10 x10(3) Normal 1.00-3.50 [facility] Comment on above: Performed By: #### L 301.0100, L301.0120, L301.0105 #### [facility] [address] [place] [address] 28910 Lymphocytes/100 WBC (Bld) 8.9 % Low 16.0-48.0 [facility] Comment on above: Performed By: #### L 301.0100, L301.0120, L301.0105 #### [facility] [address] [place] [address] 74482 MCH (RBC) [Entitic mass] 27.6 pg Low 28.5-32.9 [facility] Comment on above: Performed By: #### L 301.0100, L301.0120, L301.0105 #### [facility] [address] [place] [address] 43732 MCHC (RBC) [Mass/Vol] 32.7 g/dL Low 33.0-36.0 [facility] Comment on above: Performed By: #### L 301.0100, L301.0120, L301.0105 #### [facility] [address] [place] [address] 00530 MCV (RBC) [Entitic vol] 84.5 fL Normal 80.0-99.0 [facility] Comment on above: Performed By: #### L 301.0100, L301.0120, L301.0105 #### [facility] [address] [place] [address] 66794 MONO# 0.50 x10(3) Normal 0.30-0.80 [facility] Comment on above: Performed By: #### L 301.0100, L301.0120, L301.0105 #### - LABORATORY [address] [place] [address] 48361 Monocytes/100 WBC (Bld) 3.7 % Low 4.3-11.2 [facility] Comment on above: Performed By: #### L 301.0100, L301.0120, L301.0105 #### ML - LABORATORY [address] [place] [address] 12142 NEUT# 10.90 x10(3) High 1.40-6.50 [facility] Comment on above: Performed By: #### L 301.0100, L301.0120, L301.0105 #### ML - LABORATORY [address] [place] [address] 74016 Neutrophils/100 WBC (Bld) 86.7 % High 45.0-73.0 [facility] Comment on above: Performed By: #### L 301.0100, L301.0120, L301.0105 #### - LABORATORY [address] [place] [address] 33834 Platelet mean volume (Bld) [Entitic vol] 8.6 fL Normal 7.5-9.5 [facility] Comment on above: Performed By: #### L 301.0100, L301.0120, L301.0105 #### - LABORATORY [address] [place] [address] 06631 PLT 333 X10(3) Normal 150-450 [facility] Comment on above: Performed By: #### L 301.0100, L301.0120, L301.0105 #### ML - LABORATORY [address] [place] [address] 14305 RBC 3.65 x10(6) Normal 3.30-5.00 [facility] Comment on above: Performed By: #### L 301.0100, L301.0120, L301.0105 #### ML - LABORATORY [address] [place] [address] 40638 WBC 12.5 x10(3) High 4.5-10.0 [facility] Comment on above: Performed By: #### L 301.0100, L301.0120, L301.0105 #### ML - LABORATORY [address] [place] [address] 37570 CREATon 05-10-2022 Creatinine [Mass/Vol] 0.89 mg/dL Normal 0.50-0.90 [facility] Comment on above: Performed By: #### L 200.0010 #### ML - LABORATORY [address] [place] [address] 62160 eGFR if AFR ELOISA > 60 ml/min/1.73m2 Normal [facility] Comment on above: Result Comment: eGFR >= [...] Performed By: #### L 200.0010 #### ML [facility] [address] [place] [address] 55935 eGFR nonAFR Eloisa > 60 ml/Min/1.73m2 Normal [facility] Comment on above: Performed By: #### L 200.0010 #### ML [facility] [address] [place] [address] ABD W CONTRASTon 05-10-20 CT ABD W CONTRAST [address] [address] Name: ADINA ESCOBAR I Phys: JD WAITE M.D. : [birth year] Age: 71 Sex: F Acct: [id number] Loc: [facility] Exam Date: 05/10/22 Status: ADM [facility] No.: Unit Number: [id number] Exam # Type/Exam [id number] CT / CT ABD W CONTRAST EXAMINATION: [...] By: EDMUNDO DIAZ M.D. Tests performed at: [place] [id number] Normal [facility] GLUCOSE FSon 05-10-2022 Glucose [Mass/Vol] 135 mg/dL High 70-110 [facility] Comment on above: Performed By: #### L 200.0010 #### ML - [facility] [address] [place] [address] 73391 PROGRESS NOTEon 05-10-2022 [place] [address] HEALTH INFORMATION MANAGEMENT PROGRESS NOTE Patient: ADINA ESCOBAR ROBERT M M.D. [id number] [age] F Status: DIS IN [facility] [...] anymore bowel surgeries having done at the [facility] and she is well aware of [...] here. She would do best at the [facility]. She has a high mortality -morbidity with her anatomical situation. She understands that. We will see what her labs show today. Report#: Dict ID [id number] / Int ID [id number] KENTRELL PACHECO M.D. cc: KENTRELL PACHECO M.D. << Signature on File>> Reported By: KENTRELL PACHECO M.D. Signed By: KENTRELL PACHECO M.D. Tests performed at: [address] [address] Normal [facility] URINALYSISon 05-10-2022 Bilirubin Ql (U) Negative Normal NEGATIVE [facility] Comment on above: Performed By: #### L 301.0100, L301.0120, L301.0105 #### ML - [facility] [address] [place] [address] 40714 Color (U) YELLOW Normal YELLOW [facility] Comment on above: Performed By: #### L 301.0100, L301.0120, L301.0105 #### - LABORATORY [address] [place] [address] 64626 Glucose Ql (U) Negative Normal NEGATIVE [facility] Comment on above: Performed By: #### L 301.0100, L301.0120, L301.0105 #### - LABORATORY [address] [place] [address] 29157 Hemoglobin Ql (U) MODERATE Normal NEGATIVE [facility] Comment on above: Performed By: #### L 301.0100, L301.0120, L301.0105 #### [facility] [address] [place] [address] 65934 Leukocyte esterase Test strip Ql (U) Negative Normal NEGATIVE [facility] Comment on above: Performed By: #### L 301.0100, L301.0120, L301.0105 #### [facility] [address] [place] [address] 30770 Nitrite Ql (U) Negative Normal NEGATIVE [facility] Comment on above: Performed By: #### L 301.0100, L301.0120, L301.0105 #### [facility] [address] [place] [address] 63682 pH (U) 7.0 [pH] Normal 5.0-8.0 [facility] Comment on above: Performed By: #### L 301.0100, L301.0120, L301.0105 #### [facility] [address] [place] [address] 69194 Protein Ql (U) Negative Normal NEGATIVE [facility] Comment on above: Performed By: #### L 301.0100, L301.0120, L301.0105 #### - LABORATORY [address] [place] [address] 77228 URINE APPEARANC CLEAR Normal CLEAR [facility] Comment on above: Performed By: #### L 301.0100, L301.0120, L301.0105 #### [facility] [address] [place] [address] 87672 URINE KETONE 15 MG/DL Normal NEGATIVE [facility] Comment on above: Performed By: #### L 301.0100, L301.0120, L301.0105 #### ML - LABORATORY [address] [place] [address] 11964 URINE SPECIFIC 1.020 Normal 1.001-1.035 [facility] Comment on above: Performed By: #### L 301.0100, L301.0120, L301.0105 #### ML - LABORATORY [address] [place] [address] 19951 URINE UROBILINO 0.2 EU/DL Normal 0.2-1.0 [facility] Comment on above: Performed By: #### L 301.0100, L301.0120, L301.0105 #### ML - LABORATORY [address] [place] [address] 21672 CBCon 05-09-2022 BASO# 0.10 x10(3) Normal 0.00-0.10 [facility] Comment on above: Performed By: #### L 200.0010 #### ML [facility] [address] [place] [address] 00967 Basophils/100 WBC (Bld) 0.4 % Normal 0.0-1.0 [facility] Comment on above: Performed By: #### L 200.0010 #### [facility] [address] [place] [address] 42655 EOS# 0.00 x10(3) Normal 0.00-0.54 [facility] Comment on above: Performed By: #### L 200.0010 #### ML - LABORATORY [address] [place] [address] 03278 Eosinophils/100 WBC (Bld) 0.2 % Low 0.5-4.9 [facility] Comment on above: Performed By: #### L 200.0010 #### [facility] [address] [place] [address] 00021 Erythrocyte distribution width (RBC) [Ratio] 18.2 % High 12.5-15.7 [facility] Comment on above: Performed By: #### L 200.0010 #### ML - LABORATORY [address] [place] [address] 15897 Hematocrit (Bld) [Volume fraction] 30.8 % Low 36.0-48.0 [facility] Comment on above: Performed By: #### L 200.0010 #### ML - LABORATORY [address] [place] [address] 63574 Hemoglobin (Bld) [Mass/Vol] 10.2 g/dL Low 12.0-16.0 [facility] Comment on above: Performed By: #### L 200.0010 #### ML - LABORATORY [address] [place] [address] 98947 LYMPH# 2.10 x10(3) Normal 1.00-3.50 [facility] Comment on above: Performed By: #### L 200.0010 #### ML - LABORATORY [address] [place] [address] 47316 Lymphocytes/100 WBC (Bld) 12.1 % Low 16.0-48.0 [facility] Comment on above: Performed By: #### L 200.0010 #### ML - LABORATORY [address] [place] [address] 97606 MCH (RBC) [Entitic mass] 27.8 pg Low 28.5-32.9 [facility] Comment on above: Performed By: #### L 200.0010 #### ML - LABORATORY [address] [place] [address] 48123 MCHC (RBC) [Mass/Vol] 33.0 g/dL Normal 33.0-36.0 [facility] Comment on above: Performed By: #### L 200.0010 #### ML - LABORATORY [address] [place] [address] 64968 MCV (RBC) [Entitic vol] 84.3 fL Normal 80.0-99.0 [facility] Comment on above: Performed By: #### L 200.0010 #### ML [facility] [address] [place] [address] 29739 MONO# 1.30 x10(3) High 0.30-0.80 [facility] Comment on above: Performed By: #### L 200.0010 #### ML - LABORATORY [address] [place] [address] 62202 Monocytes/100 WBC (Bld) 7.3 % Normal 4.3-11.2 [facility] Comment on above: Performed By: #### L 200.0010 #### ML - LABORATORY [address] [place] [address] 83293 NEUT# 14.10 x10(3) High 1.40-6.50 [facility] Comment on above: Performed By: #### L 200.0010 #### ML - LABORATORY [address] [place] [address] 92091 Neutrophils/100 WBC (Bld) 80.0 % High 45.0-73.0 [facility] Comment on above: Performed By: #### L 200.0010 #### ML - LABORATORY [address] [place] [address] 79331 Platelet mean volume (Bld) [Entitic vol] 8.1 fL Normal 7.5-9.5 [facility] Comment on above: Performed By: #### L 200.0010 #### ML [facility] [address] [place] [address] 24517 PLT 308 X10(3) Normal 150-450 [facility] Comment on above: Performed By: #### L 200.0010 #### [facility] [address] [place] [address] 74033 RBC 3.65 x10(6) Normal 3.30-5.00 [facility] Comment on above: Performed By: #### L 200.0010 #### ML - LABORATORY [address] [place] [address] 12339 WBC 17.6 x10(3) Abnormal 4.5-10.0 [facility] Comment on above: Result Comment: De lta check (#) indicates a significant change in this laboratory value. It needs clinical correlation with patient situation or treatment. If the change in this test does not match your clinical situation or therapy, you may wish to re-test to verify the result. Performed By: #### L 200.0010 #### ML - LABORATORY [address] [place] [address] 39183 D-DIMERon 05-09-2022 D-DIMER <200 Normal <200-230 [facility] Comment on above: Result Comment: The cut-off level recommended for the exclusion of pulmonary embolism(PE) or deep vein thrombosis(DVT) is <=230ng/mL DDU. Performed By: #### L 200.0010 #### ML - [facility] [address] [place] [address] ECHO COMPLETEon 05-09-2022 [place] [address] HEALTH INFORMATION MANAGEMENT CARDIOLOGY REPORT Patient: ADINA ESCOBAR WAYNE Jevon Diamond [id number] [age] F Status: ADM IN [facility] Exam # Type/Exam [id number] CARD / ECHO COMPLETE DATE OF SERVICE: 05/09/2022 PROCEDURE: Echocardiogram. PHYSICIAN: Dalila Gray, PAPER REWINDER OPERATOR. CLINICAL INFORMATION: Syncope. HEIGHT: 61. WEIGHT: 158. [...] Diastolic function is normal. Report#: Dict ID [id number] / Int ID [id number] 05/12/22 0508 JAVED REYES D.O. cc: DALILA GRAY C.N.P. << Signature on File>> Reported By: JAVED REYES D.O. Signed By: JAVED REYES D.O. Tests performed at: [address] [address] Normal [facility] EMERGENCY DEPARTMENT REPORT n 05-09-2022 EMERGENCY [place] [address] HEALTH INFORMATION MANAGEMENT EMERGENCY DEPARTMENT REPORT Patient: ADINA ESCOBAR I MARILYN LYNN M.D. [id number] [age] F [facility] Date of Service: 05/08/22 ADDENDUM: The patient's [...] hospitalist. IMPRESSION: Syncope, hypertension. Report#: Dict ID [id number] / Int ID [id number] 05/14/22 1210 MARILYN LYNN M.D. cc: KENTRELL DHALIWAL II, M.D.; MARILYN LYNN M.D. << Signature on File>> Reported By: MARILYN LYNN M.D. Signed By: MARILYN LYNN M.D. Tests performed at: [place] [address] [place], [place] [address] Normal [facility] EMERGENCY [place] [address] HEALTH INFORMATION MANAGEMENT EMERGENCY DEPARTMENT REPORT Patient: ADINA ESCOBAR I MARILYN LYNN M.D. [id number] [age] F [facility] Date of Service: 05/08/22 CHIEF COMPLAINT: Hip [...] The patient has good peripheral pulses. NEUROLOGIC: [place] coma scale is 15. No gross focal [...] fluids here, some antiemetics. Report#: Dict ID [id number] / Int ID [id number] 05/14/22 1210 MARILYN LYNN M.D. cc: KENTRELL DHALIWAL II, M.D.; MARILYN LYNN M.D. << Signature on File>> Reported By: MARILYN LYNN M.D. Signed By: MARILYN LYNN M.D. Tests performed at: [address] [address] Normal [facility] GLUCOSE FSon 05-09-2022 Glucose [Mass/Vol] 130 mg/dL High 70-110 [facility] Comment on above: Performed By: #### L 301.0100, L301.0120, L301.0105 #### ML - LABORATORY [address] [place] [address] 83145 MAGNESIUMon 05-09-2022 Magnesium [Mass/Vol] 1.9 mg/dL Normal 1.6-2.4 [facility] Comment on above: Order Comment: ADD O N Performed By: #### L 301.0100, L301.0120, L301.0105 #### ML - LABORATORY [address] [place] [address] 50336 PTon 05-09-2022 INR Coag (PPP) [Relative time] 1.2 {INR} High 0.8-1.1 [facility] Comment on above: Result Comment: CO UMADIN [...] systemic embolism) 2.0-3.0 AMI (to prevent recurrent ID) 2.5-3.5 Valvular heart disease 2.0-3.0 Atrial fibrillation 2.0-3.0 Mechanical prosthetic valves (high risk) 2.5-3.5 Bileaflet mechanical valve in aortic position 2.0-3.0 Presence of Lupus Anticoagulant or Antiphospholipid Antibodies 2.5-3.5 PANIC VALUE: GREATER THAN OR EQUAL TO 4.5 Performed By: #### L 200.3190, L200.3001 #### ML - LABORATORY [address] [place] [address] 65018 PT Coag (PPP) [Time] 13.3 s High 9.4-12.5 [facility] Comment on above: Performed By: #### L 200.3190, L200.3001 #### ML - [facility] [address] [place] [address] RAPID COVIDon 05-09-2022 SARS-CoV-2 (COVID-19) RNA RENATA+probe Ql (Unsp spec) Negative Normal NEGATIVE [facility] Comment on above: Result Comment: THIS TEST HAS BEEN AUTHORIZED BY FDA UNDER AN EMERGENCY USE AUTHORIZATION (EUA). NEGATIVE: NEGATIVE FOR COVID19 (SARS-CoV-2) BY PCR POSITIVE: POSITIVE FOR COVID19 (SARS-CoV-2) BY PCR PRESUMPTIVE POSITIVE: POSITIVE BY SINGLE WOO SARS-CoV TARGET. SARS-CoV-1 CANNOT BE EXCLUDED, BUT IS NOT CURRENTLY CIRCULATING IN [place]. Performed By: #### L 200.3190, L200.3001 #### ML - [facility] [address] [place] [address] ABDOMEN (KUB)1 VIEWon 2021 ABDOMEN (KUB)[address] [address] Name: BRIECHINOA Franny Phys: MARILYN LYNN M.D. : [birth year] Age: 71 Sex: F Acct: [id number] Loc: ED Exam Date: 05/08/22 Status: REG ER Radiology No.: Unit Number: [id number] Exam # Type/Exam [id number] RAD / ABDOMEN (KUB)1 VIEW EXAMINATION: ONE [...] By: EDMUNDO DIAZ M.D. Tests performed at: [address] [address] Normal [facility] CBCon 05-08-2022 BASO# 0.10 x10(3) Normal 0.00-0.10 [facility] Comment on above: Performed By: #### L 200.3190, L200.3001 #### ML - LABORATORY [address] [place] [address] 08241 Basophils/100 WBC (Bld) 0.7 % Normal 0.0-1.0 [facility] Comment on above: Performed By: #### L 200.3190, L200.3001 #### ML - LABORATORY [address] [place] [address] 72942 EOS# 0.10 x10(3) Normal 0.00-0.54 [facility] Comment on above: Performed By: #### L 200.3190, L200.3001 #### ML - LABORATORY [address] [place] [address] 05559 Eosinophils/100 WBC (Bld) 0.7 % Normal 0.5-4.9 [facility] Comment on above: Performed By: #### L 200.3190, L200.3001 #### ML - LABORATORY [address] [place] [address] 61295 Erythrocyte distribution width (RBC) [Ratio] 18.1 % High 12.5-15.7 [facility] Comment on above: Performed By: #### L 200.3190, L200.3001 #### ML - LABORATORY [address] [place] [address] 41137 Hematocrit (Bld) [Volume fraction] 33.8 % Low 36.0-48.0 [facility] Comment on above: Performed By: #### L 200.3190, L200.3001 #### - LABORATORY [address] [place] [address] 24659 Hemoglobin (Bld) [Mass/Vol] 11.2 g/dL Low 12.0-16.0 [facility] Comment on above: Performed By: #### L 200.3190, L200.3001 #### ML - LABORATORY [address] [place] [address] 61263 LYMPH# 2.70 x10(3) Normal 1.00-3.50 [facility] Comment on above: Performed By: #### L 200.3190, L200.3001 #### [facility] [address] [place] [address] 42227 Lymphocytes/100 WBC (Bld) 30.2 % Normal 16.0-48.0 [facility] Comment on above: Performed By: #### L 200.3190, L200.3001 #### ML - LABORATORY [address] [place] [address] 71917 MCH (RBC) [Entitic mass] 27.7 pg Low 28.5-32.9 [facility] Comment on above: Performed By: #### L 200.3190, L200.3001 #### ML - LABORATORY [address] [place] [address] 59075 MCHC (RBC) [Mass/Vol] 33.0 g/dL Normal 33.0-36.0 [facility] Comment on above: Performed By: #### L 200.3190, L200.3001 #### ML - LABORATORY [address] [place] [address] 64446 MCV (RBC) [Entitic vol] 84.1 fL Normal 80.0-99.0 [facility] Comment on above: Performed By: #### L 200.3190, L200.3001 #### [facility] [address] [place] [address] 07932 MONO# 0.80 x10(3) Normal 0.30-0.80 [facility] Comment on above: Performed By: #### L 200.3190, L200.3001 #### ML - LABORATORY [address] [place] [address] 34525 Monocytes/100 WBC (Bld) 8.4 % Normal 4.3-11.2 [facility] Comment on above: Performed By: #### L 200.3190, L200.3001 #### ML - LABORATORY [address] [place] [address] 37085 NEUT# 5.40 x10(3) Normal 1.40-6.50 [facility] Comment on above: Performed By: #### L 200.3190, L200.3001 #### ML - LABORATORY [address] [place] [address] 18522 Neutrophils/100 WBC (Bld) 60.0 % Normal 45.0-73.0 [facility] Comment on above: Performed By: #### L 200.3190, L200.3001 #### ML - LABORATORY [address] [place] [address] 22265 Platelet mean volume (Bld) [Entitic vol] 8.0 fL Normal 7.5-9.5 [facility] Comment on above: Performed By: #### L 200.3190, L200.3001 #### ML - LABORATORY [address] [place] [address] 38087 PLT 372 X10(3) Normal 150-450 [facility] Comment on above: Performed By: #### L 200.3190, L200.3001 #### ML - LABORATORY [address] [place] [address] 34533 RBC 4.02 x10(6) Normal 3.30-5.00 [facility] Comment on above: Performed By: #### L 200.3190, L200.3001 #### ML - LABORATORY [address] [place] [address] 01782 WBC 9.0 x10(3) Normal 4.5-10.0 [facility] Comment on above: Performed By: #### L 200.3190, L200.3001 #### ML - LABORATORY [address] [place] [address] [place] [address] CMPon 05-08-2022 A:G RATIO 1.30 Normal 1.1-2.5 [facility] Comment on above: Performed By: #### L 200.3190, L200.3001 #### ML - LABORATORY [address] [place] [address] 74100 Albumin [Mass/Vol] 3.9 g/dL Normal 3.5-5.2 [facility] Comment on above: Performed By: #### L 200.3190, L200.3001 #### ML - LABORATORY [address] [place] [address] 17073 ALK. PHOS 126 U/L High 35-105 [facility] Comment on above: Performed By: #### L 200.3190, L200.3001 #### ML - LABORATORY [address] [place] [address] 87115 ALT [Catalytic activity/Vol] 17 U/L Normal 5-33 [facility] Comment on above: Performed By: #### L 200.3190, L200.3001 #### ML - LABORATORY [address] [place] [address] 33563 Anion gap [Moles/Vol] 18.1 mmol/L Normal 15-22 [facility] Comment on above: Performed By: #### L 200.3190, L200.3001 #### ML - LABORATORY [address] [place] [place] [address] 39635 AST [Catalytic activity/Vol] 21 U/L Normal 5-32 [facility] Comment on above: Performed By: #### L 200.3190, L200.3001 #### ML - LABORATORY [address] [place] [address] 83449 Bilirubin [Mass/Vol] 0.4 mg/dL Normal 0.2-1.2 [facility] Comment on above: Performed By: #### L 200.3190, L200.3001 #### ML - LABORATORY [address] [place] [address] 38857 Calcium [Mass/Vol] 9.1 mg/dL Normal 8.8-10.2 [facility] Comment on above: Performed By: #### L 200.3190, L200.3001 #### - LABORATORY [address] [place] [address] Chloride [Moles/Vol] 109 mmol/L High 98-107 [facility] Comment on above: Performed By: #### L 200.3190, L200.3001 #### - LABORATORY [address] [place] [address] CO2 [Moles/Vol] 19 mmol/L Low 22-29 [facility] Comment on above: Performed By: #### L 200.3190, L200.3001 #### [facility] [address] [place] [address] 99815 Creatinine [Mass/Vol] 1.26 mg/dL High 0.50-0.90 [facility] Comment on above: Performed By: #### L 200.3190, L200.3001 #### [facility] [address] [place] [address] 84633 eGFR if AFR ELOISA 51 [facility] Comment on above: Result Comment: eGFR [...] #### L 200.3190, L200.3001 #### - LABORATORY [address] [place] [address] 09466 eGFR nonAFR Eloisa 42 [facility] Comment on above: Performed By: #### L 200.3190, L200.3001 #### - LABORATORY [address] [place] [address] 74122 Globulin (S) [Mass/Vol] 3.0 g/dL Normal 1.5-4.5 [facility] Comment on above: Performed By: #### L 200.3190, L200.3001 #### ML - LABORATORY [address] [place] [address] 06135 Glucose [Mass/Vol] 108 mg/dL Normal 82-115 [facility] Comment on above: Performed By: #### L 200.3190, L200.3001 #### ML - LABORATORY [address] [place] [address] 24757 Potassium [Moles/Vol] 4.1 mmol/L Normal 3.5-5.0 [facility] Comment on above: Performed By: #### L 200.3190, L200.3001 #### ML - LABORATORY [address] [place] [address] 61630 Protein [Mass/Vol] 6.9 g/dL Normal 6.4-8.3 [facility] Comment on above: Performed By: #### L 200.3190, L200.3001 #### ML - LABORATORY [address] [place] [address] 07853 Sodium [Moles/Vol] 142 mmol/L Normal 135-145 [facility] Comment on above: Performed By: #### L 200.3190, L200.3001 #### ML - LABORATORY [address] [place] [address] 93712 Urea nitrogen [Mass/Vol] 4 mg/dL Low 8-23 [facility] Comment on above: Performed By: #### L 200.3190, L200.3001 #### ML - LABORATORY [address] [place] [address] BRAIN WITHOUT CONTRAST- C TBon 05-08-2022 CT BRAIN WITHOUT CONTRAST- CTB [address] [address] Name: ADINA ESCOBAR I Phys: MARILYN LYNN M.D. : [birth year] Age: 71 Sex: F Acct: [id number] Loc: ED Exam Date: 05/08/22 Status: REG ER Radiology No.: Unit Number: [id number] Exam # Type/Exam [id number] CT / CT BRAIN WITHOUT CONTRAST- CTB [...] By: EDMUNDO DIAZ M.D. Tests performed at: [address] [address] Normal [facility] ELECTROCARDIOGRAMon 05-08-20 22 [place] [address] [facility] ELECTROCARDIOGRAM REPORT Patient: ADINA ESCOBAR I Ordering: MARILYN LYNN M.D. [id number] [age] F Exam Date: 05/08/22 Report #: [id number] Status: REG ER ED Test Reason : [...] was found Confirmed by MARILYN LYNN MD ([id number]) on 05/08/2022 9:20:29 PM Referred By: MARILYN LYNN Confirmed By:MARILYN LYNN MD Signed in MUSE 05/08/222120 MARILYN LYNN M.D. cc: << Signature on File>> Reported By: MARILYN LYNN M.D. Signed By: MARILYN LYNN M.D. Tests performed at: [place] [address] Normal [facility] HIP UNILATERAL 2-3 VIEWSon 0 05-08-2022 HIP UNILATERAL 2-3 VIEWS [place] [address] Name: ADINA ESCOBAR I Phys: MARILYN LYNN M.D. : 51 Age: 71 Sex: F Acct: [id number] Loc: ED Exam Date: 05/08/22 Status: REG ER Radiology No.: Unit Number: [id number] Exam # Type/Exam [id number] RAD / HIP UNILATERAL 2-3 VIEWS EXAMINATION: [...] By: EDMUNDO DIAZ M.D. Tests performed at: [place] [address] Normal [facility] LIPASEon 05-08-2022 Lipase [Catalytic activity/Vol] 16 U/L Normal 13-60 [facility] Comment on above: Performed By: #### L 200.3190, L200.3001 #### ML - LABORATORY [address] [place] [address] 62325 URINALYSISon 05-08-2022 Bilirubin Ql (U) Negative Normal NEGATIVE [facility] Comment on above: Order Comment: Urine Specimen Source+ CLEAN CATCH Performed By: #### L 200.3190, L200.3001 #### ML - LABORATORY [address] [place] [address] 62437 Color (U) YELLOW Normal YELLOW [facility] Comment on above: Order Comment: Urine Specimen Source+ CLEAN CATCH Performed By: #### L 200.3190, L200.3001 #### ML - LABORATORY [address] [place] [address] 16110 Glucose Ql (U) Negative Normal NEGATIVE [facility] Comment on above: Order Comment: Urine Specimen Source+ CLEAN CATCH Performed By: #### L 200.3190, L200.3001 #### ML - LABORATORY [address] [place] [address] 16966 Hemoglobin Ql (U) Negative Normal NEGATIVE [facility] Comment on above: Order Comment: Urine Specimen Source+ CLEAN CATCH Performed By: #### L 200.3190, L200.3001 #### ML - LABORATORY [address] [place] [address] 51207 Leukocyte esterase Test strip Ql (U) TRACE Normal NEGATIVE [facility] Comment on above: Order Comment: Urine Specimen Source+ CLEAN CATCH Performed By: #### L 200.3190, L200.3001 #### ML - LABORATORY [address] [place] [address] 45487 Nitrite Ql (U) Negative Normal NEGATIVE [facility] Comment on above: Order Comment: Urine Specimen Source+ CLEAN CATCH Performed By: #### L 200.3190, L200.3001 #### ML - LABORATORY [address] [place] [address] 58066 pH (U) 6.0 [pH] Normal 5.0-8.0 [facility] Comment on above: Order Comment: Urine Specimen Source+ CLEAN CATCH Performed By: #### L 200.3190, L200.3001 #### ML - LABORATORY [address] [place] [address] 80184 Protein Ql (U) Negative Normal NEGATIVE [facility] Comment on above: Order Comment: Urine Specimen Source+ CLEAN CATCH Performed By: #### L 200.3190, L200.3001 #### ML - LABORATORY [address] [place] [address] 24621 URINE APPEARANC CLEAR Normal CLEAR [facility] Comment on above: Order Comment: Urine Specimen Source+ CLEAN CATCH Performed By: #### L 200.3190, L200.3001 #### ML - LABORATORY [address] [place] [address] 27698 URINE KETONE Negative Normal NEGATIVE [facility] Comment on above: Order Comment: Urine Specimen Source+ CLEAN CATCH Performed By: #### L 200.3190, L200.3001 #### ML - LABORATORY [address] [place] [address] 62967 URINE SPECIFIC <=1.005 Normal 1.001-1.035 [facility] Comment on above: Order Comment: Urine Specimen Source+ CLEAN CATCH Performed By: #### L 200.3190, L200.3001 #### ML - LABORATORY [address] [place] [address] 73802 URINE UROBILINO 0.2 EU/DL Normal 0.2-1.0 [facility] Comment on above: Order Comment: Urine Specimen Source+ CLEAN CATCH Performed By: #### L 200.3190, L200.3001 #### ML - LABORATORY [address] [place] [address] 40658 URINE MICROSCOPon 05-08-2022 Mucus Ql (Urine sed) TR Normal NEGATIVE [facility] Comment on above: Order Comment: Urine Specimen Source+ CLEAN CATCH Performed By: #### L 200.3190, L200.3001 #### ML - LABORATORY [address] [place] [address] 46636 SQUAMOUS FEW Normal NEGATIVE [facility] Comment on above: Order Comment: Urine Specimen Source+ CLEAN CATCH Performed By: #### L 200.3190, L200.3001 #### ML - LABORATORY [address] [place] [address] 92398 URINE BACTERIA TR Normal NEGATIVE [facility] Comment on above: Order Comment: Urine Specimen Source+ CLEAN CATCH Performed By: #### L 200.3190, L200.3001 #### ML - LABORATORY [address] [place] [address] 69530 URINE RBC 1-3 Normal 0-2 [facility] Comment on above: Order Comment: Urine Specimen Source+ CLEAN CATCH Performed By: #### L 200.3190, L200.3001 #### ML - LABORATORY [address] [place] [address] 14827 URINE WBC 6-10 Normal 0-5 [facility] Comment on above: Order Comment: Urine Specimen Source+ CLEAN CATCH Performed By: #### L 200.3190, L200.3001 #### ML - LABORATORY [address] [place] [address] 84239 BMPon 05-04-2022 Anion gap [Moles/Vol] 15.1 mmol/L Normal 15-22 [facility] Comment on above: Performed By: #### L 200.0010 #### ML - LABORATORY [address] [place] [address] 06198 Calcium [Mass/Vol] 9.3 mg/dL Normal 8.8-10.2 [facility] Comment on above: Performed By: #### L 200.0010 #### ML - LABORATORY [address] [place] [address] 14264 Chloride [Moles/Vol] 101 mmol/L Normal 98-107 [facility] Comment on above: Performed By: #### L 200.0010 #### [facility] - [facility] [address] [place] [address] 99333 CO2 [Moles/Vol] 23 mmol/L Normal 22-29 [facility] Comment on above: Performed By: #### L 200.0010 #### ML - LABORATORY [address] [place] [address] 35888 Creatinine [Mass/Vol] 1.36 mg/dL High 0.50-0.90 [facility] Comment on above: Performed By: #### L 200.0010 #### [facility] [address] [place] [address] 92800 eGFR if AFR ELOISA 47 [facility] Comment on above: Result Comment: eGFR [...] Performed By: #### L 200.0010 #### ML [facility] [address] [place] [address] 08265 eGFR nonAFR Eloisa 38 [facility] Comment on above: Performed By: #### L 200.0010 #### ML [facility] [address] [place] [address] 51806 Glucose [Mass/Vol] 96 mg/dL Normal 82-115 [facility] Comment on above: Performed By: #### L 200.0010 #### ML [facility] [address] [place] [address] 22125 Potassium [Moles/Vol] 4.1 mmol/L Normal 3.5-5.0 [facility] Comment on above: Performed By: #### L 200.0010 #### ML [facility] [address] [place] [address] 46066 Sodium [Moles/Vol] 135 mmol/L Normal 135-145 [facility] Comment on above: Performed By: #### L 200.0010 #### ML [facility] [address] [place] [address] 85444 Urea nitrogen [Mass/Vol] 8 mg/dL Normal 8-23 [facility] Comment on above: Performed By: #### L 200.0010 #### ML - LABORATORY [address] [place] [address] 87551 CBCon 05-04-2022 BASO# 0.10 x10(3) Normal 0.00-0.10 [facility] Comment on above: Performed By: #### L 200.0010 #### ML - LABORATORY [address] [place] [address] 27986 Basophils/100 WBC (Bld) 1.2 % High 0.0-1.0 [facility] Comment on above: Performed By: #### L 200.0010 #### ML - LABORATORY [address] [place] [address] 98001 EOS# 0.10 x10(3) Normal 0.00-0.54 [facility] Comment on above: Performed By: #### L 200.0010 #### ML - LABORATORY [address] [place] [address] 21402 Eosinophils/100 WBC (Bld) 0.8 % Normal 0.5-4.9 [facility] Comment on above: Performed By: #### L 200.0010 #### ML - LABORATORY [address] [place] [address] 36265 Erythrocyte distribution width (RBC) [Ratio] 17.8 % High 12.5-15.7 [facility] Comment on above: Performed By: #### L 200.0010 #### ML - LABORATORY [address] [place] [address] 37488 Hematocrit (Bld) [Volume fraction] 36.8 % Normal 36.0-48.0 [facility] Comment on above: Performed By: #### L 200.0010 #### ML - LABORATORY [address] [place] [address] 61395 Hemoglobin (Bld) [Mass/Vol] 12.0 g/dL Normal 12.0-16.0 [facility] Comment on above: Performed By: #### L 200.0010 #### ML - LABORATORY [address] [place] [address] 68634 LYMPH# 3.70 x10(3) High 1.00-3.50 [facility] Comment on above: Performed By: #### L 200.0010 #### ML [facility] [address] [place] [address] 12685 Lymphocytes/100 WBC (Bld) 38.8 % Normal 16.0-48.0 [facility] Comment on above: Performed By: #### L 200.0010 #### ML [facility] [address] [place] [address] 77132 MCH (RBC) [Entitic mass] 27.5 pg Low 28.5-32.9 [facility] Comment on above: Performed By: #### L 200.0010 #### ML [facility] [address] [place] [address] 96489 MCHC (RBC) [Mass/Vol] 32.5 g/dL Low 33.0-36.0 [facility] Comment on above: Performed By: #### L 200.0010 #### ML [facility] [address] [place] [address] 24417 MCV (RBC) [Entitic vol] 84.6 fL Normal 80.0-99.0 [facility] Comment on above: Performed By: #### L 200.0010 #### [facility] [address] [place] [address] 21488 MONO# 0.90 x10(3) High 0.30-0.80 [facility] Comment on above: Performed By: #### L 200.0010 #### ML [facility] [address] [place] [address] 52530 Monocytes/100 WBC (Bld) 9.0 % Normal 4.3-11.2 [facility] Comment on above: Performed By: #### L 200.0010 #### ML [facility] [address] [place] [address] 56562 NEUT# 4.80 x10(3) Normal 1.40-6.50 [facility] Comment on above: Performed By: #### L 200.0010 #### [facility] [address] [place] [address] 73736 Neutrophils/100 WBC (Bld) 50.2 % Normal 45.0-73.0 [facility] Comment on above: Performed By: #### L 200.0010 #### [facility] [address] [place] [address] 37122 Platelet mean volume (Bld) [Entitic vol] 8.3 fL Normal 7.5-9.5 [facility] Comment on above: Performed By: #### L 200.0010 #### ML - LABORATORY [address] [place] [address] 06395 PLT 390 X10(3) Normal 150-450 [facility] Comment on above: Performed By: #### L 200.0010 #### [facility] [address] [place] [address] 47065 RBC 4.36 x10(6) Normal 3.30-5.00 [facility] Comment on above: Performed By: #### L 200.0010 #### ML - LABORATORY [address] [place] [address] 94959 WBC 9.6 x10(3) Normal 4.5-10.0 [facility] Comment on above: Performed By: #### L 200.0010 #### ML - LABORATORY [address] [place] [address] ABD/PEL W CONTRAST 04-17 CT ABD/PEL W CONTRAST [address] [address] Name: BRIEADINA Franny Phys: ABEL JOSEPH M.D. : [birth year] Age: 71 Sex: F Acct: [id number] Loc: ED Exam Date: 05/03/22 Status: REG ER Radiology No.: Unit Number: [id number] Exam # Type/Exam [id number] CT / CT ABD/PEL W CONTRAST EXAMINATION: [...] By: EDMUNDO DIAZ M.D. Tests performed at: [place] [address] Normal [facility] EKGon 05-04-2022 Atrial Rate 74 BPM [facility] Calculated P [place] 71 degrees [facility] Calculated R [place] 17 degrees [facility] Calculated T [place] 43 degrees [facility] P-R Interval 160 ms [facility] QRS Duration 72 ms [facility] QT Interval 418 ms [facility] QTC Calculation (Bazett) 463 ms [facility] Ventricular Rate [address] [facility] ELECTROCARDIOGRAMon 05-04-20 22 Electrocardiogram [place] [id number] [facility] ELECTROCARDIOGRAM REPORT Patient: ADINA ESCOBAR I Ordering: ABEL JOSEPH M.D. [id number] [age] F Exam Date: 05/03/22 Report #: [id number] Status: REG ER ED Test Reason : [...] was found Confirmed by ABEL JOSEPH MD ([id number]) on 05/04/2022 2:09:15 AM Referred By: ABEL JOSEPH Confirmed By:ABEL JOSEPH MD Signed in MUSE 05/04/22 0211 ABEL JOSEPH M.D. cc: << Signature on File>> Reported By: ABEL JOSEPH M.D. Signed By: ABEL JOSEPH M.D. Tests performed at: [address] [address] [facility] EMERGENCY DEPARTMENT REPORTo n 05-04-2022 EMERGENCY [place] [address] [facility] EMERGENCY DEPARTMENT REPORT Patient: ADINA ESCOBAR I ABEL JOSEPH M.D. [id number] [age] F Status: DEP ER ED Date of Service: 05/03/22 ADDENDUM: [...] care provider, Dr. Dhaliwal. Report#: Dict ID [id number] / Int ID [id number] 05/09/22 1906 ABEL JOSEPH M.D. cc: ABEL JOSEPH M.D.; KENTRELL DHALIWAL II, M.D. << Signature on File>> Reported By: ABEL JOSEPH M.D. Signed By: ABEL JOSEPH M.D. Tests performed at: [place] [address] [place], [place] [address] Normal [facility] EMERGENCY [place] [address] [facility] EMERGENCY DEPARTMENT REPORT Patient: ADINA ESCOBAR I ABEL JOSEPH M.D. [id number] [age] F Status: [facility] ER ED Date of Service: 05/03/22 CHIEF COMPLAINT: Abdominal pain and cramping. ALLERGIES: Sulfa, statins, prochlorperazine, codeine, hydrocodone, oxycodone, acetaminophen, Depakote, orphenadrine, Levaquin, cefdinir, latex, and shellfish. MEDICATIONS: 1. Zofran. 2. Bentyl. 3. Zoloft. 4. Prilosec. 5. Wellbutrin. 6. Xanax. 7. Synthroid. 8. Eliquis. 9. Zanaflex. 10. Ambien. HISTORY OF PRESENT ILLNESS: Adina is a very nice 71-year-old white female [...] systems appears to be negative. PHYSICAL EXAMINATION: GENERAL/CONSTITUTIONAL: The patient is an age-appropriate white female, [...] noted. DICTATION ENDS HERE Report#: Dict ID [id number] / Int ID [id number] 05/09/22 1906 ABEL JOSEPH M.D. cc: ABEL JOSEPH M.D.; KENTRELL DHALIWAL II, M.D. << Signature on File>> Reported By: ABEL JOSEPH M.D. Signed By: ABEL JOSEPH M.D. Tests performed at: [address] [address] Normal [facility] HEPATIC PANELon 05-04-2022 A:G RATIO 1.38 Normal 1.1-2.5 [facility] Comment on above: Performed By: #### L 200.0010 #### [facility] [address] [place] [address] 07821 Albumin [Mass/Vol] 4.3 g/dL Normal 3.5-5.2 [facility] Comment on above: Performed By: #### L 200.0010 #### ML - LABORATORY [address] [place] [address] 00192 ALK. PHOS 98 U/L Normal 35-105 [facility] Comment on above: Performed By: #### L 200.0010 #### ML - LABORATORY [address] [place] [address] 12538 ALT [Catalytic activity/Vol] 19 U/L Normal 5-33 [facility] Comment on above: Performed By: #### L 200.0010 #### ML [facility] [address] [place] [address] 72473 AST [Catalytic activity/Vol] 27 U/L Normal 5-32 [facility] Comment on above: Performed By: #### L 200.0010 #### [facility] [address] [place] [address] 05534 Bilirubin [Mass/Vol] 0.2 mg/dL Normal 0.2-1.2 [facility] Comment on above: Performed By: #### L 200.0010 #### [facility] [address] [place] [address] 11435 DIRECT BILIRUBI <0.2 Normal 0.0-0.3 [facility] Comment on above: Performed By: #### L 200.0010 #### ML [facility] [address] [place] [address] 59364 Globulin (S) [Mass/Vol] 3.1 g/dL Normal 1.5-4.5 [facility] Comment on above: Performed By: #### L 200.0010 #### ML [facility] [address] [place] [address] 10881 Protein [Mass/Vol] 7.4 g/dL Normal 6.4-8.3 [facility] Comment on above: Performed By: #### L 200.0010 #### ML [facility] [address] [place] [address] 76465 LACTIC ACIDon 05-04-2022 Lactate [Moles/Vol] 1.9 mmol/L Normal 0.5-2.0 [facility] Comment on above: Performed By: #### L 200.3001 #### ML - LABORATORY [address] [place] [address] 06220 LIPASEon 05-04-2022 Lipase [Catalytic activity/Vol] 26 U/L Normal 13-60 [facility] Comment on above: Performed By: #### L 200.3001 #### ML - LABORATORY [address] [place] [address] 12759 TROPONIN Ton 05-04-2022 TROPONIN T <0.010 Normal 0-0.010 [facility] Comment on above: Performed By: #### L 200.3001 #### ML - LABORATORY [address] [place] [address] 97555 UA W/C&Son 05-04-2022 Bilirubin Ql (U) Negative Normal NEGATIVE [facility] Comment on above: Order Comment: Urine Specimen Source+ CLEAN CATCH Performed By: #### L 200.3190, L200.3001 #### ML - LABORATORY [address] [place] [address] 30371 Color (U) YELLOW Normal YELLOW [facility] Comment on above: Order Comment: Urine Specimen Source+ CLEAN CATCH Performed By: #### L 200.3190, L200.3001 #### ML - LABORATORY [address] [place] [address] 41984 Glucose Ql (U) Negative Normal NEGATIVE [facility] Comment on above: Order Comment: Urine Specimen Source+ CLEAN CATCH Performed By: #### L 200.3190, L200.3001 #### ML - LABORATORY [address] [place] [address] 39287 Hemoglobin Ql (U) TRACE-INTACT Normal NEGATIVE [facility] Comment on above: Order Comment: Urine Specimen Source+ CLEAN CATCH Performed By: #### L 200.3190, L200.3001 #### ML - LABORATORY [address] [place] [address] 46756 Leukocyte esterase Test strip Ql (U) LARGE Normal NEGATIVE [facility] Comment on above: Order Comment: Urine Specimen Source+ CLEAN CATCH Performed By: #### L 200.3190, L200.3001 #### ML - LABORATORY [address] [place] [address] 60240 Nitrite Ql (U) Positive Normal NEGATIVE [facility] Comment on above: Order Comment: Urine Specimen Source+ CLEAN CATCH Performed By: #### L 200.3190, L200.3001 #### [facility] [address] [place] [address] 20423 pH (U) 6.0 [pH] Normal 5.0-8.0 [facility] Comment on above: Order Comment: Urine Specimen Source+ CLEAN CATCH Performed By: #### L 200.3190, L200.3001 #### [facility] [address] [place] [address] 07481 Protein Ql (U) Negative Normal NEGATIVE [facility] Comment on above: Order Comment: Urine Specimen Source+ CLEAN CATCH Performed By: #### L 200.3190, L200.3001 #### ML - LABORATORY [address] [place] [address] 32333 URINE APPEARANC SL CLOUDY Normal CLEAR [facility] Comment on above: Order Comment: Urine Specimen Source+ CLEAN CATCH Performed By: #### L 200.3190, L200.3001 #### ML - LABORATORY [address] [place] [address] 15017 URINE KETONE Negative Normal NEGATIVE [facility] Comment on above: Order Comment: Urine Specimen Source+ CLEAN CATCH Performed By: #### L 200.3190, L200.3001 #### ML - LABORATORY [address] [place] [address] 13540 URINE SPECIFIC <=1.005 Normal 1.001-1.035 [facility] Comment on above: Order Comment: Urine Specimen Source+ CLEAN CATCH Performed By: #### L 200.3190, L200.3001 #### [facility] [address] [place] [address] 66726 URINE UROBILINO 0.2 EU/DL Normal 0.2-1.0 [facility] [facility] Comment on above: Order Comment: Urine Specimen Source+ CLEAN CATCH Performed By: #### L 200.3190, L200.3001 #### [facility] [address] [place] [address] [id number] URINE MICROSCOPon 05-04-2022 Mucus Ql (Urine sed) TR Normal NEGATIVE [facility] Comment on above: Order Comment: Urine Specimen Source+ CLEAN CATCH Performed By: #### L 200.3190, L200.3001 #### [facility] [address] [place] [address] 46836 SQUAMOUS FEW Normal NEGATIVE [facility] Comment on above: Order Comment: Urine Specimen Source+ CLEAN CATCH Performed By: #### L 200.3190, L200.3001 #### [facility] [address] [place] [address] 45834 URINE BACTERIA 4+ Normal NEGATIVE [facility] Comment on above: Order Comment: Urine Specimen Source+ CLEAN CATCH Performed By: #### L 200.3190, L200.3001 #### [facility] [address] [place] [address] 94698 URINE RBC 1-3 Normal 0-2 [facility] Comment on above: Order Comment: Urine Specimen Source+ CLEAN CATCH Performed By: #### L 200.3190, L200.3001 #### [facility] [address] [place] [address] 32761 URINE WBC 40-50 Normal 0-5 [facility] Comment on above: Order Comment: Urine Specimen Source+ CLEAN CATCH Performed By: #### L 200.3190, L200.3001 #### [facility] [address] [place] [address] 19328 Urinalysis complete panel (U )on 05-04-2022 Appearance (U) SL CLOUDY CLEAR [facility] Bacteria, Urine 4+ NEGATIVE [facility] Bilirubin, Urine Negative NEGATIVE [facility] Blood, Urine TRACE-INTACT NEGATIVE [facility] Color (U) YELLOW YELLOW [facility] Glucose Ql (U) Negative NEGATIVE MG/DL [facility] Ketones Ql (U) Negative NEGATIVE MG/DL [facility] Leukocytes LARGE [facility] Nitrites Urine Positive NEGATIVE [facility] pH (U) 6.0 [pH] 5.0 - 8.0 [facility] Protein.monoclonal (U) [Mass/Vol] Negative NEGATIVE MG/DL [facility] RBC, Urine 1-3 0 - 2 [facility] Specific Egan, Ur <=1.005 1.001 - 1.035 [facility] Squamous Epithelial Cells FEW NEGATIVE [facility] Ur Mucous TR NEGATIVE [facility] Urobilinogen, Urine 0.2 EU/DL 0.2 - 1. 0 EU/DL [facility] WBC, Urine 40-50 0 - 5 [facility] Basic metabolic 2000 panelon 05-03-2022 Anion gap [Moles/Vol] 15.1 mmol/L 15 - 2 2 mmol/L [facility] Calcium [Mass/Vol] 9.3 mg/dL 8.8 - 10. 2 mg/dL [facility] Chloride [Moles/Vol] 101 mmol/L 98 - 10 7 mmol/L [facility] CO2 [Moles/Vol] 23 mmol/L 22 - 29 mmol/L [facility] Creatinine [Mass/Vol] 1.36 mg/dL High 0.50 - 0.90 mg/dL [facility] eGFR-All Other Races [address] [facility] GFR/1.73 sq M.predicted among blacks MDRD (S/P/Bld) [Vol rate/Area] 47 mL/min/{1.73_m2} [facility] Glucose [Mass/Vol] 96 mg/dL 82 - 115 mg/dL [facility] Potassium [Moles/Vol] 4.1 mmol/L 3.5 - 5.0 mmol/L [facility] Sodium [Moles/Vol] 135 mmol/L 135 - 145 mmol/L [facility] Urea nitrogen [Mass/Vol] 8 mg/dL 8 - 23 mg/dL [facility] CBC W Auto Differential pane l (Bld)on 05-03-2022 BASO ABS 0.10 x10(3) 0.00 - 0.10 x10(3) [facility] Basophils/100 WBC (Bld) 1.2 % High 0.0 - 1.0 % [facility] EOS ABS 0.10 x10(3) 0.00 - 0.54 x10(3) [facility] Eosinophils/100 WBC (Bld) 0.8 % 0.5 - 4.9 % [facility] Erythrocyte distribution width (RBC) [Ratio] 17.8 % High 12.5 - 15.7 % [facility] Hematocrit (Bld) [Volume fraction] 36.8 % 36.0 - 48.0 % [facility] Hemoglobin (Bld) [Mass/Vol] 12.0 g/dL 12.0 - 16.0 g/dL [facility] LYMPH ABS 3.70 x10(3) High 1.00 - 3.50 x10(3) [facility] Lymphocytes/100 WBC (Bld) 38.8 % 16.0 - 48.0 % [facility] MCH (RBC) [Entitic mass] 27.5 pg Low 28.5 - 32.9 pg [facility] MCHC (RBC) [Mass/Vol] 32.5 g/dL Low 33.0 - 36.0 g/dL [facility] MCV (RBC) [Entitic vol] 84.6 fL 80.0 - 99.0 fl [facility] MONO ABS 0.90 x10(3) High 0.30 - 0.80 x10(3) [facility] Monocytes/100 WBC (Bld) 9.0 % 4.3 - 11.2 % [facility] Neutrophil Ab 4.80 x10(3) 1.40 - 6.50 x10(3) [facility] Neutrophils/100 WBC (Bld) 50.2 % 45.0 - 73.0 % [facility] Platelet Count 390 X10(3) 150 - 450 X10(3) [facility] Platelet mean volume (Bld) [Entitic vol] 8.3 fL 7.5 - 9.5 fl [facility] RBC 4.36 x10(6) 3.30 - 5.00 x10(6) [facility] WBC 9.6 x10(3) 4.5 - 10.0 x10(3) [facility] CT ABD/PEL W IVCONon 022 [facility] Hepatic function 2000 panelo n 05-03-2022 Albumin [Mass/Vol] 4.3 g/dL 3.5 - 5.2 g/dL [facility] Albumin/Globulin [Mass ratio] 1.38 {ratio} 1.1 - 2.5 [facility] ALP [Catalytic activity/Vol] 98 U/L 35 - 105 U/L [facility] ALT [Catalytic activity/Vol] 19 U/L 5 - 33 U/L [facility] AST [Catalytic activity/Vol] 27 U/L 5 - 32 U/L [facility] Bilirubin [Mass/Vol] 0.2 mg/dL 0.2 - 1 .2 mg/dL [facility] Direct Bilirubin <0.2 0.0 - 0.3 mg/dL [facility] Globulin (S) [Mass/Vol] 3.1 g/dL 1.5 - 4.5 g/dL [facility] Protein [Mass/Vol] 7.4 g/dL 6.4 - 8.3 g/dL [facility] LIPASE BLDon 05-03-2022 Lipase [Catalytic activity/Vol] 26 U/L 13 - 60 U/L [facility] Lactate (Bld) [Moles/Vol]on 05-03-2022 Lactic Acid Plasma 1.9 mmol/L 0.5 - 2.0 mmol/L [facility] TROPONIN Ton 05-03-2022 Troponin T <0.010 0 - 0.010 ng/mL [facility] Urine Cultureon 05-03-2022 Bacteria identified Cx Nom [...] 20 Susceptible SOURCE: URINE Test Performed By: [facility] [address] [place] [address] [employer] Dipper: Sven Wasserman III, M.D. See Below Normal [facility] BMPon 04-21-2022 Anion gap [Moles/Vol] 14.9 mmol/L Low 15-22 [facility] Comment on above: Performed By: #### L 200.0010 #### [facility] [address] [place] [address] 31222 Calcium [Mass/Vol] 9.3 mg/dL Normal 8.8-10.2 [facility] Comment on above: Performed By: #### L 200.0010 #### ML - [facility] [address] [place] [address] 31558 Chloride [Moles/Vol] 105 mmol/L Normal 98-107 [facility] Comment on above: Performed By: #### L 200.0010 #### ML [facility] [address] [place] [address] 89851 CO2 [Moles/Vol] 24 mmol/L Normal 22-29 [facility] Comment on above: Performed By: #### L 200.0010 #### ML - [facility] [address] [place] [address] 59466 Creatinine [Mass/Vol] 1.33 mg/dL High 0.50-0.90 [facility] Comment on above: Performed By: #### L 200.0010 #### ML [facility] [address] [place] [address] 34878 eGFR if AFR ELOISA 48 [facility] Comment on above: Result Comment: eGFR [...] #### L 200.0010 #### ML - [facility] [address] [place] [address] 44317 eGFR nonAFR Eloisa 39 [facility] Comment on above: Performed By: #### L 200.0010 #### ML [facility] [address] [place] [address] 59620 Glucose [Mass/Vol] 99 mg/dL Normal 82-115 [facility] Comment on above: Performed By: #### L 200.0010 #### [facility] - [facility] [address] [place] [address] 56184 Potassium [Moles/Vol] 3.9 mmol/L Normal 3.5-5.0 [facility] Comment on above: Performed By: #### L 200.0010 #### ML - [facility] [address] [place] [address] 26633 Sodium [Moles/Vol] 140 mmol/L Normal 135-145 [facility] Comment on above: Performed By: #### L 200.0010 #### ML - [facility] [address] [place] [address] 79551 Urea nitrogen [Mass/Vol] 8 mg/dL Normal 8-23 [facility] Comment on above: Performed By: #### L 200.0010 #### [facility] - [facility] [address] [place] [address] 49946 Basic metabolic 2000 panelon 04-21-2022 Anion gap [Moles/Vol] 14.9 mmol/L Low 15 - 2 2 mmol/L [facility] Calcium [Mass/Vol] 9.3 mg/dL 8.8 - 10. 2 mg/dL [facility] Chloride [Moles/Vol] 105 mmol/L 98 - 10 7 mmol/L [facility] CO2 [Moles/Vol] 24 mmol/L 22 - 29 mmol/L [facility] Creatinine [Mass/Vol] 1.33 mg/dL High 0.50 - 0.90 mg/dL [facility] eGFR-All Other Races 39 [facility] GFR/1.73 sq M.predicted among blacks MDRD (S/P/Bld) [Vol rate/Area] 48 mL/min/{1.73_m2} [facility] Glucose [Mass/Vol] 99 mg/dL 82 - 115 mg/dL [facility] Potassium [Moles/Vol] 3.9 mmol/L 3.5 - 5.0 mmol/L [facility] Sodium [Moles/Vol] 140 mmol/L 135 - 145 mmol/L [facility] Urea nitrogen [Mass/Vol] 8 mg/dL 8 - 23 mg/dL [facility] CBCon 04-21-2022 BASO# 0.10 x10(3) Normal 0.00-0.10 [facility] Comment on above: Performed By: #### L 200.0010 #### ML - [facility] [address] [place] [address] 30766 Basophils/100 WBC (Bld) 1.0 % Normal 0.0-1.0 [facility] Comment on above: Performed By: #### L 200.0010 #### ML - [facility] [address] [place] [address] 27135 EOS# 0.20 x10(3) Normal 0.00-0.54 [facility] Comment on above: Performed By: #### L 200.0010 #### ML - [facility] [address] [place] [address] 83621 Eosinophils/100 WBC (Bld) 1.9 % Normal 0.5-4.9 [facility] Comment on above: Performed By: #### L 200.0010 #### ML [facility] [address] [place] [address] 94934 Erythrocyte distribution width (RBC) [Ratio] 18.6 % High 12.5-15.7 [facility] Comment on above: Performed By: #### L 200.0010 #### ML [facility] [address] [place] [address] 60034 Hematocrit (Bld) [Volume fraction] 34.3 % Low 36.0-48.0 [facility] Comment on above: Performed By: #### L 200.0010 #### ML [facility] [address] [place] [address] 07874 Hemoglobin (Bld) [Mass/Vol] 11.2 g/dL Low 12.0-16.0 [facility] Comment on above: Performed By: #### L 200.0010 #### [facility] - [facility] [address] [place] [address] 02066 LYMPH# 3.00 x10(3) Normal 1.00-3.50 [facility] Comment on above: Performed By: #### L 200.0010 #### ML [facility] [address] [place] [address] 47983 Lymphocytes/100 WBC (Bld) 36.6 % Normal 16.0-48.0 [facility] Comment on above: Performed By: #### L 200.0010 #### ML [facility] [address] [place] [address] 71503 MCH (RBC) [Entitic mass] 27.9 pg Low 28.5-32.9 [facility] Comment on above: Performed By: #### L 200.0010 #### ML [facility] [address] [place] [address] 09585 MCHC (RBC) [Mass/Vol] 32.8 g/dL Low 33.0-36.0 [facility] Comment on above: Performed By: #### L 200.0010 #### ML [facility] [address] [place] [address] 35763 MCV (RBC) [Entitic vol] 85.3 fL Normal 80.0-99.0 [facility] Comment on above: Performed By: #### L 200.0010 #### ML [facility] [address] [place] [address] 13899 MONO# 0.80 x10(3) Normal 0.30-0.80 [facility] Comment on above: Performed By: #### L 200.0010 #### ML [facility] [address] [place] [address] 64739 Monocytes/100 WBC (Bld) 9.3 % Normal 4.3-11.2 [facility] Comment on above: Performed By: #### L 200.0010 #### ML [facility] [address] [place] [address] 76299 NEUT# 4.20 x10(3) Normal 1.40-6.50 [facility] Comment on above: Performed By: #### L 200.0010 #### ML [facility] [address] [place] [address] 03733 Neutrophils/100 WBC (Bld) 51.2 % Normal 45.0-73.0 [facility] Comment on above: Performed By: #### L 200.0010 #### ML [facility] [address] [place] [address] 56559 Platelet mean volume (Bld) [Entitic vol] 9.0 fL Normal 7.5-9.5 [facility] Comment on above: Performed By: #### L 200.0010 #### ML - [facility] [address] [place] [address] PLT 320 X10(3) Normal 150-450 [facility] Comment on above: Performed By: #### L 200.0010 #### ML - [facility] [address] [place] [address] 32769 RBC 4.02 x10(6) Normal 3.30-5.00 [facility] Comment on above: Performed By: #### L 200.0010 #### ML - [facility] [address] [place] [address] 74573 WBC 8.1 x10(3) Normal 4.5-10.0 [facility] Comment on above: Performed By: #### L 200.0010 #### ML - [facility] [address] [place] [address] 74363 CBC W Auto Differential pane l (Bld)on 04-21-2022 BASO ABS 0.10 x10(3) 0.00 - 0.10 x10(3) [facility] Basophils/100 WBC (Bld) 1.0 % 0.0 - 1.0 % [facility] EOS ABS 0.20 x10(3) 0.00 - 0.54 x10(3) [facility] Eosinophils/100 WBC (Bld) 1.9 % 0.5 - 4.9 % [facility] Erythrocyte distribution width (RBC) [Ratio] 18.6 % High 12.5 - 15.7 % [facility] Hematocrit (Bld) [Volume fraction] 34.3 % Low 36.0 - 48.0 % [facility] Hemoglobin (Bld) [Mass/Vol] 11.2 g/dL Low 12.0 - 16.0 g/dL [facility] LYMPH ABS 3.00 x10(3) 1.00 - 3.50 x10(3) [facility] Lymphocytes/100 WBC (Bld) 36.6 % 16.0 - 48.0 % [facility] MCH (RBC) [Entitic mass] 27.9 pg Low 28.5 - 32.9 pg [facility] MCHC (RBC) [Mass/Vol] 32.8 g/dL Low 33.0 - 36.0 g/dL [facility] MCV (RBC) [Entitic vol] 85.3 fL 80.0 - 99.0 fl [facility] MONO ABS 0.80 x10(3) 0.30 - 0.80 x10(3) [facility] Monocytes/100 WBC (Bld) 9.3 % 4.3 - 11.2 % [facility] Neutrophil Ab 4.20 x10(3) 1.40 - 6.50 x10(3) [facility] Neutrophils/100 WBC (Bld) 51.2 % 45.0 - 73.0 % [facility] Platelet Count 320 X10(3) 150 - 450 X10(3) [facility] Platelet mean volume (Bld) [Entitic vol] 9.0 fL 7.5 - 9.5 fl [facility] RBC 4.02 x10(6) 3.30 - 5.00 x10(6) [facility] WBC 8.1 x10(3) 4.5 - 10.0 x10(3) [facility] CT ABD/PEL W CONTRASTon 08-0 CT ABD/PEL W CONTRAST [place] [address] Name: BRIEADINA I Phys: STUART BARBOSA D.O. : 52 Age: 71 Sex: F Acct: [id number] Loc: ED Exam Date: 04/21/22 Status: [facility] Radiology No.: Unit Number: [id number] Exam # Type/Exam [id number] CT / CT ABD/PEL W CONTRAST EXAMINATION: [...] By: FLORA BLEDSOE M.D. Tests performed at: [place] [address] [place], [place] [address] Normal [facility] CT ABD/PEL W IVCONon 022 [facility] EMERGENCY DEPARTMENT REPORTo n 04-21-2022 EMERGENCY [place] [address] HEALTH INFORMATION MANAGEMENT EMERGENCY DEPARTMENT REPORT Patient: ADINA ESCOBAR I FAMILIA,STUART Armenta D.O. [id number] [age] F Status: DEP ER ED [...] home, some Zofran for nausea. I did family and marriage counsellor her if she has worsening symptoms, increasing [...] get a stool culture. Report#: Dict ID [id number] / Int ID [id number] 04/21/22 1705 STUART BARBOSA D.O. cc: STUART BARBOSA D.O.; KENTRELL DHALIWAL II, M.D. << Signature on File>> Reported By: STUART BARBOSA D.O. Signed By: STUART BARBOSA D.O. Tests performed at: [place] [address] Normal [facility] HEPATIC PANELon 04-21-2022 A:G RATIO 1.33 Normal 1.1-2.5 [facility] Comment on above: Performed By: #### L 200.0010 #### ML - [facility] [address] [place] [address] 21349 Albumin [Mass/Vol] 4.0 g/dL Normal 3.5-5.2 [facility] Comment on above: Performed By: #### L 200.0010 #### ML - [facility] [address] [place] [address] 39558 ALK. PHOS 111 U/L High 35-105 [facility] Comment on above: Performed By: #### L 200.0010 #### ML [facility] [address] [place] [address] 07106 ALT [Catalytic activity/Vol] 15 U/L Normal - [facility] Comment on above: Performed By: #### L 200.0010 #### ML - [facility] [address] [place] [address] 06100 AST [Catalytic activity/Vol] 22 U/L Normal - [facility] Comment on above: Performed By: #### L 200.0010 #### ML - LAB[facility] [address] [place] [address] 92200 Bilirubin [Mass/Vol] 0.3 mg/dL Normal 0.2-1.2 [facility] Comment on above: Performed By: #### L 200.0010 #### [facility] [address] [place] [address] 47894 DIRECT BILIRUBI <0.2 Normal 0.0-0.3 [facility] Comment on above: Performed By: #### L 200.0010 #### ML - [facility] [address] [place] [address] 32928 Globulin (S) [Mass/Vol] 3.0 g/dL Normal 1.5-4.5 [facility] Comment on above: Performed By: #### L 200.0010 #### ML - [facility] [address] [place] [address] 14598 Protein [Mass/Vol] 7.0 g/dL Normal 6.4-8.3 [facility] Comment on above: Performed By: #### L 200.0010 #### ML [facility] [address] [place] [address] 84803 Hepatic function 2000 panelo 04-21-2022 Albumin [Mass/Vol] 4.0 g/dL 3.5 - 5.2 g/dL [facility] Albumin/Globulin [Mass ratio] 1.33 {ratio} 1.1 - 2.5 [facility] ALP [Catalytic activity/Vol] 111 U/L High 35 - 105 U/L [facility] ALT [Catalytic activity/Vol] 15 U/L 5 - 33 U/L [facility] AST [Catalytic activity/Vol] 22 U/L 5 - 32 U/L [facility] Bilirubin [Mass/Vol] 0.3 mg/dL 0.2 - 1 .2 mg/dL [facility] Direct Bilirubin <0.2 0.0 - 0.3 mg/dL [facility] Globulin (S) [Mass/Vol] 3.0 g/dL 1.5 - 4.5 g/dL [facility] Protein [Mass/Vol] 7.0 g/dL 6.4 - 8.3 g/dL [facility] LIPASEon 04-21-2022 Lipase [Catalytic activity/Vol] 23 U/L Normal 13-60 [facility] Comment on above: Performed By: #### L 200.0010 #### ML - LABORATORY [address] [place] [address] 35706 LIPASE BLDon 04-21-2022 Lipase [Catalytic activity/Vol] 23 U/L 13 - 60 U/L [facility] RAPID COVIDon 04-21-2022 SARS-CoV-2 (COVID-19) RNA RENATA+probe Ql (Unsp spec) Negative Normal NEGATIVE [facility] Comment on above: Result Comment: THIS TEST HAS BEEN AUTHORIZED BY FDA UNDER AN EMERGENCY USE AUTHORIZATION (EUA). NEGATIVE: NEGATIVE FOR COVID19 (SARS-CoV-2) BY PCR POSITIVE: POSITIVE FOR COVID19 (SARS-CoV-2) BY PCR PRESUMPTIVE POSITIVE: POSITIVE BY SINGLE WOO SARS-CoV TARGET. SARS-CoV-1 CANNOT BE EXCLUDED, BUT IS NOT CURRENTLY CIRCULATING IN [place]. Performed By: #### L 200.0010 #### ML - LABORATORY [address] [place] [address] 94771 SARS-CoV-2 (COVID-19) RNA NA A+probe Ql (Resp)on 04-21-2022 SARS-CoV-2 (COVID-19) RNA RENATA+probe Ql (Unsp spec) Negative NEGATIVE [facility] UA W/C&Son 04-21-2022 Bilirubin Ql (U) Negative Normal NEGATIVE [facility] Comment on above: Order Comment: Urine Specimen Source+ CLEAN CATCH Performed By: #### L 200.3001 #### ML - LABORATORY [address] [place] [address] 57135 Color (U) YELLOW Normal YELLOW [facility] Comment on above: Order Comment: Urine Specimen Source+ CLEAN CATCH Performed By: #### L 200.3001 #### ML - LABORATORY [address] [place] [address] 77247 Glucose Ql (U) Negative Normal NEGATIVE [facility] Comment on above: Order Comment: Urine Specimen Source+ CLEAN CATCH Performed By: #### L 200.3001 #### ML - LABORATORY [address] [place] [address] 37051 Hemoglobin Ql (U) Negative Normal NEGATIVE [facility] Comment on above: Order Comment: Urine Specimen Source+ CLEAN CATCH Performed By: #### L 200.3001 #### ML - LABORATORY [address] [place] [address] 40782 Leukocyte esterase Test strip Ql (U) Negative Normal NEGATIVE [facility] Comment on above: Order Comment: Urine Specimen Source+ CLEAN CATCH Performed By: #### L 200.3001 #### ML - LAB[facility] [address] [place] [address] 64356 Nitrite Ql (U) Negative Normal NEGATIVE [facility] Comment on above: Order Comment: Urine Specimen Source+ CLEAN CATCH Performed By: #### L 200.3001 #### ML - LABORATORY [address] [place] [address] 12111 pH (U) 6.0 [pH] Normal 5.0-8.0 [facility] Comment on above: Order Comment: Urine Specimen Source+ CLEAN CATCH Performed By: #### L 200.3001 #### ML [facility] [address] [place] [address] 49375 Protein Ql (U) Negative Normal NEGATIVE [facility] Comment on above: Order Comment: Urine Specimen Source+ CLEAN CATCH Performed By: #### L 200.3001 #### ML - LABORATORY [address] [place] [address] 31601 URINE APPEARANC CLEAR Normal CLEAR [facility] Comment on above: Order Comment: Urine Specimen Source+ CLEAN CATCH Performed By: #### L 200.3001 #### ML - LABORATORY [address] [place] [address] 63968 URINE KETONE Negative Normal NEGATIVE [facility] Comment on above: Order Comment: Urine Specimen Source+ CLEAN CATCH Performed By: #### L 200.3001 #### ML - LABORATORY [address] [place] [address] 94957 URINE SPECIFIC 1.010 Normal 1.001-1.035 [facility] Comment on above: Order Comment: Urine Specimen Source+ CLEAN CATCH Performed By: #### L 200.3001 #### ML - LABORATORY [address] [place] [address] 50511 URINE UROBILINO 0.2 EU/DL Normal 0.2-1.0 [facility] Comment on above: Order Comment: Urine Specimen Source+ CLEAN CATCH Performed By: #### L 200.3001 #### ML - LABORATORY [address] [place] [address] Urinalysis complete panel (U )on 04-21-2022 Appearance (U) CLEAR CLEAR [facility] Bilirubin, Urine Negative NEGATIVE [facility] Blood, Urine Negative NEGATIVE [facility] Color (U) YELLOW YELLOW [facility] Glucose Ql (U) Negative NEGATIVE MG/DL [facility] Ketones Ql (U) Negative NEGATIVE MG/DL [facility] Leukocytes Negative NEGATIVE [facility] Nitrites Urine Negative NEGATIVE [facility] pH (U) 6.0 [pH] 5.0 - 8.0 [facility] Protein.monoclonal (U) [Mass/Vol] Negative NEGATIVE MG/DL [facility] Specific Egan, Ur 1.010 1.001 - 1.035 [facility] Urobilinogen, Urine 0.2 EU/DL 0.2 - 1. 0 EU/DL [facility] BMPon 04-19-2022 Anion gap [Moles/Vol] 20.2 mmol/L Normal 15-22 [facility] Comment on above: Performed By: #### L 200.3190, L200.3001 #### ML - LABORATORY [address] [place] [address] Calcium [Mass/Vol] 9.7 mg/dL Normal 8.8-10.2 [facility] Comment on above: Performed By: #### L 200.3190, L200.3001 #### ML - LABORATORY [address] [place] [address] Chloride [Moles/Vol] 104 mmol/L Normal 98-107 [facility] Comment on above: Performed By: #### L 200.3190, L200.3001 #### ML - LABORATORY [address] [place] [address] CO2 [Moles/Vol] 20 mmol/L Low 22-29 [facility] Comment on above: Performed By: #### L 200.3190, L200.3001 #### ML - LABORATORY [address] [place] [address] Creatinine [Mass/Vol] 1.35 mg/dL High 0.50-0.90 [facility] Comment on above: Performed By: #### L 200.3190, L200.3001 #### - LABORATORY [address] [place] [address] 39654 eGFR if AFR ELOISA 47 [facility] Comment on above: Result Comment: eGFR [...] #### L 200.3190, L200.3001 #### - LABORATORY [address] [place], [place] [address] 45346 eGFR nonAFR Eloisa 39 [facility] Comment on above: Performed By: #### L 200.3190, L200.3001 #### [facility] [address] [place] [address] 28767 Glucose [Mass/Vol] 99 mg/dL Normal 82-115 [facility] Comment on above: Performed By: #### L 200.3190, L200.3001 #### - LABORATORY [address] [place] [address] 50759 Potassium [Moles/Vol] 4.2 mmol/L Normal 3.5-5.0 [facility] Comment on above: Performed By: #### L 200.3190, L200.3001 #### - LABORATORY [address] [place] [address] 66685 Sodium [Moles/Vol] 140 mmol/L Normal 135-145 [facility] Comment on above: Performed By: #### L 200.3190, L200.3001 #### ML - LABORATORY [address] [place] [address] 27974 Urea nitrogen [Mass/Vol] 10 mg/dL Normal 8-23 [facility] Comment on above: Performed By: #### L 200.3190, L200.3001 #### [facility] [address] [place] [address] 44380 Basic metabolic 2000 panelon 04-19-2022 Anion gap [Moles/Vol] 20.2 mmol/L 15 - 2 2 mmol/L [facility] Calcium [Mass/Vol] 9.7 mg/dL 8.8 - 10. 2 mg/dL [facility] Chloride [Moles/Vol] 104 mmol/L 98 - 10 7 mmol/L [facility] CO2 [Moles/Vol] 20 mmol/L Low 22 - 29 mmol/L [facility] Creatinine [Mass/Vol] 1.35 mg/dL High 0.50 - 0.90 mg/dL [facility] eGFR-All Other Races 39 [facility] GFR/1.73 sq M.predicted among blacks MDRD (S/P/Bld) [Vol rate/Area] 47 mL/min/{1.73_m2} [facility] Glucose [Mass/Vol] 99 mg/dL 82 - 115 mg/dL [facility] Potassium [Moles/Vol] 4.2 mmol/L 3.5 - 5.0 mmol/L [facility] Sodium [Moles/Vol] 140 mmol/L 135 - 145 mmol/L [facility] Urea nitrogen [Mass/Vol] 10 mg/dL 8 - 23 mg/dL [facility] CBCon 04-19-2022 BASO# 0.10 x10(3) Normal 0.00-0.10 [facility] Comment on above: Performed By: #### L 200.0010 #### ML - LABORATORY [address] [place] [address] 29655 Basophils/100 WBC (Bld) 0.6 % Normal 0.0-1.0 [facility] Comment on above: Performed By: #### L 200.0010 #### ML [facility] [address] [place] [address] 81284 EOS# 0.00 x10(3) Normal 0.00-0.54 [facility] Comment on above: Performed By: #### L 200.0010 #### ML [facility] [address] [place] [address] 39167 Eosinophils/100 WBC (Bld) 0.5 % Normal 0.5-4.9 [facility] Comment on above: Performed By: #### L 200.0010 #### ML [facility] [address] [place] [address] 34147 Erythrocyte distribution width (RBC) [Ratio] 18.9 % High 12.5-15.7 [facility] Comment on above: Performed By: #### L 200.0010 #### ML [facility] [address] [place] [address] 81081 Hematocrit (Bld) [Volume fraction] 34.8 % Low 36.0-48.0 [facility] Comment on above: Performed By: #### L 200.0010 #### ML [facility] [address] [place] [address] 19349 Hemoglobin (Bld) [Mass/Vol] 11.6 g/dL Low 12.0-16.0 [facility] Comment on above: Performed By: #### L 200.0010 #### ML [facility] [address] [place] [address] 91130 LYMPH# 2.60 x10(3) Normal 1.00-3.50 [facility] Comment on above: Performed By: #### L 200.0010 #### ML [facility] [address] [place] [address] 01447 Lymphocytes/100 WBC (Bld) 28.4 % Normal 16.0-48.0 [facility] Comment on above: Performed By: #### L 200.0010 #### ML [facility] [address] [place] [address] 91518 MCH (RBC) [Entitic mass] 28.3 pg Low 28.5-32.9 [facility] Comment on above: Performed By: #### L 200.0010 #### ML [facility] [address] [place] [address] 85110 MCHC (RBC) [Mass/Vol] 33.4 g/dL Normal 33.0-36.0 [facility] Comment on above: Performed By: #### L 200.0010 #### [facility] [address] [place] [address] 02857 MCV (RBC) [Entitic vol] 84.7 fL Normal 80.0-99.0 [facility] Comment on above: Performed By: #### L 200.0010 #### [facility] [address] [place] [address] 34472 MONO# 0.70 x10(3) Normal 0.30-0.80 [facility] Comment on above: Performed By: #### L 200.0010 #### ML [facility] [address] [place] [address] 29895 Monocytes/100 WBC (Bld) 7.9 % Normal 4.3-11.2 [facility] Comment on above: Performed By: #### L 200.0010 #### [facility] [address] [place] [address] 16445 NEUT# 5.80 x10(3) Normal 1.40-6.50 [facility] Comment on above: Performed By: #### L 200.0010 #### ML [facility] [address] [place] [address] 85503 Neutrophils/100 WBC (Bld) 62.6 % Normal 45.0-73.0 [facility] Comment on above: Performed By: #### L 200.0010 #### ML [facility] [address] [place] [address] 60134 Platelet mean volume (Bld) [Entitic vol] 8.8 fL Normal 7.5-9.5 [facility] Comment on above: Performed By: #### L 200.0010 #### ML [facility] [address] [place] [address] 99743 PLT 366 X10(3) Normal 150-450 [facility] Comment on above: Performed By: #### L 200.0010 #### [facility] [address] [place] [address] 09441 RBC 4.12 x10(6) Normal 3.30-5.00 [facility] Comment on above: Performed By: #### L 200.0010 #### ML [facility] [address] [place] [address] WBC 9.3 x10(3) Normal 4.5-10.0 [facility] Comment on above: Performed By: #### L 200.0010 #### ML [facility] [address] [place] [address] 75980 CBC W Auto Differential pane l (Bld)on 04-19-2022 BASO ABS 0.10 x10(3) 0.00 - 0.10 x10(3) [facility] Basophils/100 WBC (Bld) 0.6 % 0.0 - 1.0 % [facility] EOS ABS 0.00 x10(3) 0.00 - 0.54 x10(3) [facility] Eosinophils/100 WBC (Bld) 0.5 % 0.5 - 4.9 % [facility] Erythrocyte distribution width (RBC) [Ratio] 18.9 % High 12.5 - 15.7 % [facility] Hematocrit (Bld) [Volume fraction] 34.8 % Low 36.0 - 48.0 % [facility] Hemoglobin (Bld) [Mass/Vol] 11.6 g/dL Low 12.0 - 16.0 g/dL [facility] LYMPH ABS 2.60 x10(3) 1.00 - 3.50 x10(3) [facility] Lymphocytes/100 WBC (Bld) 28.4 % 16.0 - 48.0 % [facility] MCH (RBC) [Entitic mass] 28.3 pg Low 28.5 - 32.9 pg [facility] MCHC (RBC) [Mass/Vol] 33.4 g/dL 33.0 - 36.0 g/dL [facility] MCV (RBC) [Entitic vol] 84.7 fL 80.0 - 99.0 fl [facility] MONO ABS 0.70 x10(3) 0.30 - 0.80 x10(3) [facility] Monocytes/100 WBC (Bld) 7.9 % 4.3 - 11.2 % [facility] Neutrophil Ab 5.80 x10(3) 1.40 - 6.50 x10(3) [facility] Neutrophils/100 WBC (Bld) 62.6 % 45.0 - 73.0 % [facility] Platelet Count 366 X10(3) 150 - 450 X10(3) [facility] Platelet mean volume (Bld) [Entitic vol] 8.8 fL 7.5 - 9.5 fl [facility] RBC 4.12 x10(6) 3.30 - 5.00 x10(6) [facility] WBC 9.3 x10(3) 4.5 - 10.0 x10(3) [facility] HEPATIC PANELon 04-19-2022 A:G RATIO 1.33 Normal 1.1-2.5 [facility] Comment on above: Performed By: #### L 200.3190, L200.3001 #### ML - LABORATORY [address] [place] [address] 82686 Albumin [Mass/Vol] 4.4 g/dL Normal 3.5-5.2 [facility] Comment on above: Performed By: #### L 200.3190, L200.3001 #### ML - LABORATORY [address] [place] [address] 91112 ALK. PHOS 118 U/L High 35-105 [facility] Comment on above: Performed By: #### L 200.3190, L200.3001 #### ML - LABORATORY [address] [place] [address] 66884 ALT [Catalytic activity/Vol] 17 U/L Normal - [facility] Comment on above: Performed By: #### L 200.3190, L200.3001 #### ML - LABORATORY [address] [place] [address] 65428 AST [Catalytic activity/Vol] 26 U/L Normal - [facility] Comment on above: Performed By: #### L 200.3190, L200.3001 #### ML - LABORATORY [address] [place] [address] 95243 Bilirubin [Mass/Vol] 0.4 mg/dL Normal 0.2-1.2 [facility] Comment on above: Performed By: #### L 200.3190, L200.3001 #### ML - LABORATORY [address] [place] [address] 65721 DIRECT BILIRUBI <0.2 Normal 0.0-0.3 [facility] Comment on above: Performed By: #### L 200.3190, L200.3001 #### ML - LABORATORY [address] [place] [address] 22164 Globulin (S) [Mass/Vol] 3.3 g/dL Normal 1.5-4.5 [facility] Comment on above: Performed By: #### L 200.3190, L200.3001 #### ML - LABORATORY [address] [place] [address] 30062 Protein [Mass/Vol] 7.7 g/dL Normal 6.4-8.3 [facility] Comment on above: Performed By: #### L 200.3190, L200.3001 #### ML - LABORATORY [address] [place] [address] 25223 Hepatic function 2000 panelo n 04-19-2022 Albumin [Mass/Vol] 4.4 g/dL 3.5 - 5.2 g/dL [facility] Albumin/Globulin [Mass ratio] 1.33 {ratio} 1.1 - 2.5 [facility] ALP [Catalytic activity/Vol] 118 U/L High 35 - 105 U/L [facility] ALT [Catalytic activity/Vol] 17 U/L 5 - 33 U/L [facility] AST [Catalytic activity/Vol] 26 U/L 5 - 32 U/L [facility] Bilirubin [Mass/Vol] 0.4 mg/dL 0.2 - 1 .2 mg/dL [facility] Direct Bilirubin <0.2 0.0 - 0.3 mg/dL [facility] Globulin (S) [Mass/Vol] 3.3 g/dL 1.5 - 4.5 g/dL [facility] Protein [Mass/Vol] 7.7 g/dL 6.4 - 8.3 g/dL [facility] LIPID PANELon 04-19-2022 Cholesterol [Mass/Vol] 267 mg/dL High 130-200 [facility] Comment on above: Performed By: #### L 200.3190, L200.3001 #### ML - LABORATORY [address] [place] [address] 75500 Cholesterol in HDL [Mass/Vol] 56 mg/dL Normal [facility] Comment on above: Result Comment: Yen onal [...] L 200.3190, L200.3001 #### ML - LABORATORY [address] [place] [address] 73458 Cholesterol in LDL [Mass/Vol] 177 mg/dL Normal [facility] Comment on above: Result Comment: LDL: OPTIMAL FOR PEOPLE AT VERY HIGH RISK <70 OPTIMAL <100 NEAR OPTIMAL 100-129 BORDERLINE HIGH 130-159 HIGH 160-189 VERY HIGH >=190 Source: 2008 NCEP ATP III, ADA Guidelines Reviewed: December, Performed By: #### L 200.3190, L200.3001 #### ML - LABORATORY [address] [place] [address] 92468 Cholesterol in VLDL [Mass/Vol] 34 mg/dL Normal 6-40 [facility] Comment on above: Performed By: #### L 200.3190, L200.3001 #### [facility] [address] [place] [address] 53949 LDL/HDL RATIO 3.2 Normal [facility] Comment on above: Performed By: #### L 200.3190, L200.3001 #### ML - LABORATORY [address] [place] [address] 31972 Triglyceride [Mass/Vol] 169 mg/dL Normal [facility] Comment on above: Result Comment: TRIG : DESIRABLE: <150 mg/dL Performed By: #### L 200.3190, L200.3001 #### [facility] [address] [place] [address] 71866 Lipid 1996 panelon 2 Cholesterol [Mass/Vol] 267 mg/dL High 130 - 200 mg/dL [facility] Cholesterol in HDL [Mass/Vol] 56 mg/dL [facility] Cholesterol in LDL [Mass/Vol] 177 mg/dL [facility] LDL:HDL Ratio 3.2 [facility] Triglyceride [Mass/Vol] 169 mg/dL [facility] VLDL Cholesterol 34 mg/dL 6 - 40 mg/dL [facility] TSHon 04-19-2022 TSH 2.58 uIU/mL Normal 0.270-4.200 [facility] Comment on above: Performed By: #### L 200.3190, L200.3001 #### [facility] [address] [place] [address] TSH Qnon 04-19-2022 TSH 2.58 uIU/mL 0.270 - 4.200 uIU/mL [facility] CNPNon 03-01-2022 CNPN Telephone (AGDOVER) -- ADINA ESCOBAR I ([id number]) 1950 F Date Time Provider Department 03/01/22 KENTRELL DHALIWAL II During your visit today, we recorded the following information about you: Josep Drew MA 03/01/2022 11:08 AM Signed Patient [...] abdominal pain or joint or muscle pain? Josep Drew MA 03/01/2022 3:51 PM Signed Called [...] else then she needs to call the tractor engine mechanic for their recommendations on what to prescribe as the rest of the options left to try may affect her bowels Josep Drew MA 03/02/2022 9:25 AM Signed Called patient to inform of Dr. Dhaliwal message. Patient states understanding and will call her Gastro to see what medication he would recommend. Josep Drew MA Allergies As of Date: 03/01/2022 Noted Allergy Reaction LATEX 06/22/2020 10 - Anaphylaxis CODEINE 06/22/2020 6 - Diarrhea COMPAZINE (PROCHLORPERAZINE) 06/22/2020 17 - Myalgia LEVAQUIN (LEVOFLOXACIN) 06/22/2020 6 - Diarrhea OMNICEF (CEFDINIR) 06/22/2020 6 - Diarrhea PREDNISONE 08/30/2021 8 - GI Upset LHBICWL-BVD-UNT REDUCTASE INHIBIT*06/22/2020 6 - Diarrhea SULFA (SULFONAMIDE ANTIBIOTICS) 06/15/2020 14 - Other: See Comments Comments: Leg pain Date Reviewed: 02/28/2022 Reviewed by: Kentrell Dhaliwal II, MD - Fully Assessed Reason for Visit: Patient Question [0997] Prescriptions as of 03/02/2022 - zolpidem (AMBIEN) [...] Hypothyroidism, acquired [E03.9] 08/30/2021 Encounter Status:Closed by JOSEP DREW on 03/02/22 [facility] CNOVon 02-28-2022 CNOV Office Visit (MELISSA R) -- ADINA ESCOBAR I ([id number]) 1950 F Date Time Provider Department 02/28/22 2:20 PM KENTRELL DHALIWAL II During your visit today, we recorded the following information about you: Respiration Blood pressure Weight 14/minute 110/78 74.1 kg Kentrell Dhaliwal II, MD 03/06/2022 8:53 PM Signed Kentrell Dhaliwal II, MD [address], [address] [place] [id number] SUBJECTIVE Adina Franny Escobar is a 71 year old female [...] [Cefdinir] Diarrhea - Prednisone GI Upset - Rpulbwc-Xhl-Afb Red* Diarrhea - Sulfa (Sulfonamide * Other: [...] 98% BMI (more content not included)... Normal [facility] Ab 02-22-2022 LYDIA Telephone (ArchsyDOVER) -- BRIEADINA COHEN I ([id number]) 1950 F Date Time Provider Department 02/22/22 SERGIO GOLDMAN, KENTRELL NAQVI During your visit today, [...] Diarrhea PREDNISONE 08/30/2021 8 - GI Upset JHVSWXZ-TKF-TVB REDUCTASE INHIBIT*06/22/2020 6 - Diarrhea SULFA (SULFONAMIDE [...] Status:Closed by KENTRELL [facility]IWAL [facility] LYDIA [facility] (DONYA) -- ADINA ESCOBAR I ([id number]) 1950 F Date Time Provider Department 02/16/22 KENTRELL DHALIWAL II During your visit today, we recorded the following information about you: Susanne Motta 02/16/2022 2:48 PM Signed Adina Escobar says she is coming down with [...] Diarrhea PREDNISONE 08/30/2021 8 - GI Upset HOPFAOL-CEL-ZWY REDUCTASE INHIBIT*06/22/2020 6 - Diarrhea SULFA (SULFONAMIDE ANTIBIOTICS) 06/15/2020 14 - Other: See Comments Comments: Leg pain Date Reviewed: 01/17/2022 Reviewed by: Fifi Prather MA - Fully Assessed Reason for Visit: UTI [116] Visit Diagnoses:Parkinson's disease ([facility]) [G20] Gastroesophageal reflux disease, unspecified whether esophagitis present [K21.9] Type 2 diabetes mellitus without complication, without long-term current use of insulin ([facility]) [E11.9] Anxiety and depression [F41.9, F32.A] Irritable [...] Encounter Status:Closed by SUSANNE MOTTA on [facility]/16/22 [facility] ([place]) -- BRIEADINA COHEN I ([id number]) 1950 F Date Time Provider Department 01/24/22 KENTRELL DHALIWAL II During your visit today, we recorded the following information about you: Josep Drew MA 01/24/2022 1:54 PM Signed Patient called stating she is having stomach cramps and would like to know if she can take the Bentle that Dr. Dhaliwal prescribed for her? Please advise LISA Rasmussen II, MD 01/24/2022 2:00 PM Signed Yes Every 6 hours as needed Josep Drew MA 01/24/2022 2:16 PM Signed Called patient to inform of Dr. Dhaliwal message. Patient states understanding and will call with any further questions or concerns. Josep Drew MA Allergies As of Date: 01/24/2022 Noted Allergy Reaction LATEX 06/22/2020 10 - Anaphylaxis CODEINE 06/22/2020 6 - Diarrhea COMPAZINE (PROCHLORPERAZINE) 06/22/2020 17 - Myalgia LEVAQUIN (LEVOFLOXACIN) 06/22/2020 6 - Diarrhea OMNICEF (CEFDINIR) 06/22/2020 6 - Diarrhea PREDNISONE 08/30/2021 8 - GI Upset GCJRDFX-LUQ-IZP REDUCTASE INHIBIT*06/22/2020 6 - Diarrhea SULFA (SULFONAMIDE ANTIBIOTICS) 06/15/2020 14 - Other: See Comments Comments: Leg pain Date Reviewed: 01/17/2022 Reviewed by: Fifi Prather MA - Fully Assessed Reason for Visit: Patient Question [4167] Prescriptions as of 01/24/2022 - ALPRAZolam (XANAX) [...] Hypothyroidism, acquired [E03.9] 08/30/2021 Encounter Status:Closed by JOSEP DREW on 01/24/22 [facility] JASONNon 01-23-2022 JASONN Telephone (SHERONVER) -- ADINA ESCOBAR I ([id number]) 1950 F Date Time Provider Department 01/23/22 KENTRELL DHALIWAL II During your visit today, we recorded the following information about you: Josep Drew MA 01/23/2022 1:27 PM Signed FYI: Dr. Neff office called stating they will treat patient for IBS and abdominal pain however, they will not treat for SBO or liver issues. Josep Drew MA Allergies As of Date: 01/23/2022 Noted Allergy Reaction LATEX 06/22/2020 10 - Anaphylaxis CODEINE 06/22/2020 6 - Diarrhea COMPAZINE (PROCHLORPERAZINE) 06/22/2020 17 - Myalgia LEVAQUIN (LEVOFLOXACIN) 06/22/2020 6 - Diarrhea OMNICEF (CEFDINIR) 06/22/2020 6 - Diarrhea PREDNISONE 08/30/2021 8 - GI Upset RMEIVPF-QXV-GXN REDUCTASE INHIBIT*06/22/2020 6 - Diarrhea SULFA (SULFONAMIDE [...] Hypothyroidism, acquired [E03.9] 08/30/2021 Encounter Status:Closed by JOSEP DREW on 01/23/22 [facility] Ab 01-13-2022 LYDIA Telephone ([place]) -- BRIEADINA COHEN I ([id number]) 1950 F Date Time Provider Department 01/13/22 SERGIO GOLDMAN, KENTRELL NAQVI During your visit today, [...] Diarrhea PREDNISONE 08/30/2021 8 - GI Upset WMVELAP-GAD-BWY REDUCTASE INHIBIT*06/22/2020 6 - Diarrhea SULFA (SULFONAMIDE [...] Status:Closed by DENITA THOMAS MA on 01/13/22 [facility] JASONN Telephone (DONYA) -- ADINA ESCOBAR I ([id number]) 1950 F Date Time Provider Department 01/13/22 KENTRELL DHALIWAL II During your visit today, we recorded the following information about you: Susanne rGeyceleste 01/13/2022 9:46 AM Signed Adina Escobar is still having pain under her bellybutton, her bowels did finally move, and the Celebrex makes her sicker that before. Please advise Susanne Ángela Dhaliwal II, MD 01/13/2022 3:51 PM Signed I did reorder her stomach medicine for another 2 weeks. She should avoid pain medications other than anti-inflammatories and Tylenol because that could make the gastrointestinal issues worse I do think it is time she should think about going to see a tractor engine mechanic. Denita Thomas MA 01/13/2022 4:10 PM Signed [...] Thomas MA 01/19/2022 11:[address] Bonillas office called back mentioning that he was [...] Kasey says this order should work. 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 Normal [facility] US ABDOMEN COMPLETEon 2021 [facility] CNPTawana 01-09-2022 CNPN Telephone ([place]) -- ADINA ESCOBAR I ([id number]) 1950 F Date Time Provider Department 01/09/22 KENTRELL DHALIWAL II During your visit today, we recorded the following information about you: Denita Thomas MA 01/09/2022 10:21 AM Signed Ella from [facility] regarding patients insurance. They are denying the PT and OT for patient with out the 485 signed and an actual order. 485 has been faxed but we just need an order for patients PT and OT. Please print order and fax to [phone]. Denita Dhaliwal II, MD 01/10/2022 8:55 AM Signed Gabriel Motta 01/10/2022 9:38 AM Signed Order faxed [...] cover it? Also has to have the [facility] on the order. The last one had a [facility] [place] in [place] on it. Susanne Dhaliwal II, MD 01/10/2022 [...] Diarrhea PREDNISONE 08/30/2021 8 - GI Upset BPVUUIN-UKC-YKW REDUCTASE INHIBIT*06/22/2020 6 - Diarrhea SULFA (SULFONAMIDE ANTIBIOTICS) 06/15/2020 14 - Other: See Comments Comments: Leg pain Date Reviewed: 01/05/2022 Reviewed by: Denita Thomas MA - Fully Assessed Reason for Visit: Orders [681] Primary Visit Diagnosis:Generalized weakness [R53.1] Other Visit Diagnoses:SBO (small bowel obstruction) ([facility]) [K56.609] Fatigue, unspecified type [R53.83] Type 2 diabetes mellitus without complication, without long-term current use of insulin ([facility]) [E11.9] Parkinson's disease ([facility]) [G20] Order(s):CONSULT TO PHYSICAL THERAPY [9032] Order #: [id number]: 1 FUTURE CONSULT TO PHYSICAL THERAPY [8000] Order #: [id number]: 1 FUTURE Prescriptions as of 01/11/2022 - [...] Of Date 01/09/2022 Noted Resolved Parkinson's disease (HCC) [G20] 06/22/2020 [...] Status:Closed by KENTRELL DHALIWAL II on 01/10/22 [facility] Ab 01-06-2022 CNPN Telephone (AG[place]) -- ADINA ESCOBAR I ([id number]) 1950 F Date Time Provider Department 01/06/22 [...] Motta 01/06/2022 2:46 PM Signed Spoke with Adina Escobar , gave her time and date of her US. Susanne Motta Allergies As of Date: 01/06/2022 Noted Allergy Reaction LATEX 06/22/2020 10 - Anaphylaxis CODEINE 06/22/2020 6 - Diarrhea COMPAZINE (PROCHLORPERAZINE) 06/22/2020 17 - Myalgia LEVAQUIN (LEVOFLOXACIN) 06/22/2020 6 - Diarrhea OMNICEF (CEFDINIR) 06/22/2020 6 - Diarrhea PREDNISONE 08/30/2021 8 - GI Upset TEOVDGS-LBJ-QSF REDUCTASE INHIBIT*06/22/2020 6 - Diarrhea SULFA (SULFONAMIDE ANTIBIOTICS) 06/15/2020 14 - Other: See Comments Comments: Leg pain Date Reviewed: 01/05/2022 Reviewed by: Denita Thomas MA - Fully Assessed Reason for Visit: Results [95] Primary Visit Diagnosis:Generalized abdominal pain [R10.84] Other Visit Diagnosis:Elevated liver function tests [R79.89] Order(s):US ABDOMEN COMPLETE [6326760] Order #: [id number] FUTURE Prescriptions as of 01/06/2022 - docusate [...] by KENTRELL DHALIWAL II on 01/06/22 Normal [facility] Basic metabolic 2000 panelon 01-05-2022 Anion gap [Moles/Vol] 25.4 mmol/L High 15 - 2 2 mmol/L [facility] Calcium [Mass/Vol] 9.3 mg/dL 8.8 - 10. 2 mg/dL [facility] Chloride [Moles/Vol] 104 mmol/L 98 - 10 7 mmol/L [facility] CO2 [Moles/Vol] 12 mmol/L Low 22 - 29 mmol/L [facility] Creatinine [Mass/Vol] 1.15 mg/dL High 0.50 - 0.90 mg/dL [facility] eGFR-All Other Races [address] [facility] GFR/1.73 sq M.predicted among blacks MDRD (S/P/Bld) [Vol rate/Area] 56 mL/min/{1.73_m2} [facility] Glucose [Mass/Vol] 122 mg/dL High 82 - 115 mg/dL [facility] Potassium [Moles/Vol] 4.4 mmol/L 3.5 - 5.0 mmol/L [facility] Sodium [Moles/Vol] 137 mmol/L 135 - 145 mmol/L [facility] Urea nitrogen [Mass/Vol] 19 mg/dL 8 - 23 mg/dL [facility] CBC W Auto Differential pane l (Bld)on 01-05-2022 BASO ABS 0.10 x10(3) 0.00 - 0.10 x10(3) [facility] Basophils/100 WBC (Bld) 0.6 % 0.0 - 1.0 % [facility] EOS ABS 0.00 x10(3) 0.00 - 0.54 x10(3) [facility] Eosinophils/100 WBC (Bld) 0.3 % Low 0.5 - 4.9 % [facility] Erythrocyte distribution width (RBC) [Ratio] 15.4 % 12.5 - 15.7 % [facility] Hematocrit (Bld) [Volume fraction] 36.2 % 36.0 - 48.0 % [facility] Hemoglobin (Bld) [Mass/Vol] 11.5 g/dL Low 12.0 - 16.0 g/dL [facility] LYMPH ABS 2.30 x10(3) 1.00 - 3.50 x10(3) [facility] Lymphocytes/100 WBC (Bld) 24.6 % 16.0 - 48.0 % [facility] MCH (RBC) [Entitic mass] 28.3 pg Low 28.5 - 32.9 pg [facility] MCHC (RBC) [Mass/Vol] 31.7 g/dL Low 33.0 - 36.0 g/dL [facility] MCV (RBC) [Entitic vol] 89.3 fL 80.0 - 99.0 fl [facility] MONO ABS 0.50 x10(3) 0.30 - 0.80 x10(3) [facility] Monocytes/100 WBC (Bld) 5.4 % 4.3 - 11.2 % [facility] Neutrophil Ab 6.50 x10(3) 1.40 - 6.50 x10(3) [facility] Neutrophils/100 WBC (Bld) 69.1 % 45.0 - 73.0 % [facility] Platelet Count 588 X10(3) High 150 - 450 X10(3) [facility] Platelet mean volume (Bld) [Entitic vol] 8.0 fL 7.5 - 9.5 fl [facility] RBC 4.06 x10(6) 3.30 - 5.00 x10(6) [facility] WBC 9.4 x10(3) 4.5 - 10.0 x10(3) [facility] CNOVon 01-05-2022 CNOV Office Visit (MELISSA R) -- ADINA ESCOBAR I ([id number]) 1950 F Date Time Provider Department 01/05/22 [...] No flowsheet data found. Summary Discharged from: [facility] Admit Date: 10/30/21-11/13/21 11/24/21-11/25/21, 12/26/21-12/21/21 Admitted for: SBO, Bowel Abrasions, Bowel surgery Denita Thomas MA Provider Documentation Adina Escobar is a 71 year old female [...] No flowsheet data found. Summary Discharged from: [facility] Admit Date: 12/26/21 Admitted for: Small bowel obstruction, dehydration Kentrell Dhaliwal II, MD Provider Documentation Adina Escobar is a 71 year old female [...] gallop. Pulmon (more content not included)... Normal [facility] Ab 01-05-2022 JASON Telephone (DONYA) -- ADINA ESCOBAR I ([id number]) 1950 F Date Time Provider Department 01/05/22 KENTRELL DHALIWAL II During your visit today, we recorded the following information about you: Josep Drew MA 01/05/2022 2:40 PM Signed Prior auth for LUBIPROSTONE was sent to [facility] LISA Rasmussen MA 01/06/2022 8:20 AM Signed -PA approved for Lubiprostone has been approved until 09/16/2022 Denita Thomas MA Allergies As of Date: 01/05/2022 Noted Allergy Reaction LATEX 06/22/2020 10 - Anaphylaxis CODEINE 06/22/2020 6 - Diarrhea COMPAZINE (PROCHLORPERAZINE) 06/22/2020 17 - Myalgia LEVAQUIN (LEVOFLOXACIN) 06/22/2020 6 - Diarrhea OMNICEF (CEFDINIR) 06/22/2020 6 - Diarrhea PREDNISONE 08/30/2021 8 - GI Upset [id number] REDUCTASE INHIBIT*06/22/2020 6 - Diarrhea SULFA (SULFONAMIDE ANTIBIOTICS) 06/15/2020 14 - Other: See Comments Comments: Leg pain Date Reviewed: 01/05/2022 Reviewed by: Denita Thomas MA - Fully Assessed Reason for Visit: Insurance Authorization [[id number]] Prescriptions as of 01/06/2022 - docusate sodium [...] Hypothyroidism, acquired [E03.9] 08/30/2021 Encounter Status:Closed by JOSEP DREW on 01/05/22 Normal [facility] HEPATIC FUNCTION PNLon 04-21 -2022 Albumin [Mass/Vol] 4.4 g/dL 3.5 - 5.2 g/dL [facility] Albumin/Globulin [Mass ratio] 1.41 {ratio} 1.1 - 2.5 [facility] ALP [Catalytic activity/Vol] 212 U/L High 35 - 105 U/L [facility] ALT [Catalytic activity/Vol] 88 U/L High 5 - 33 U/L [facility] AST [Catalytic activity/Vol] 89 U/L High 5 - 32 U/L [facility] Bilirubin [Mass/Vol] 0.4 mg/dL 0.2 - 1 .2 mg/dL [facility] Direct Bilirubin <0.2 0.0 - 0.3 mg/dL [facility] Globulin (S) [Mass/Vol] 3.1 g/dL 1.5 - 4.5 g/dL [facility] Protein [Mass/Vol] 7.5 g/dL 6.4 - 8.3 g/dL [facility] IRON + TIBCon 01-05-2022 % Saturation (TIBC) 12 % 10 - 32 % [facility] Iron [Mass/Vol] 58 ug/dL 37 - 145 ug/dL [facility] TIBC 458 mg/dL 269 - 535 mg/dL [facility] Transferrin [Mass/Vol] 327 mg/dL 192 - 382 mg/dL [facility] TSH Qnon 01-05-2022 TSH 2.02 uIU/mL 0.270 - 4.200 uIU/mL [facility] VITAMIN B12 BLOODon 01-06-20 Cobalamin (Vitamin B12) [Mass/Vol] 739.8 pg/mL 232 - 1,245 pg/mL [facility] VITAMIN D 25 HYDROXYon 01-05 VITAMIN D 36.9 ng/mL 30 - 100 ng/mL [facility] BMPon 12-20-2021 Anion gap [Moles/Vol] 11 mmol/L Normal 5-16 [facility] Comment on above: Order Comment: Valentina armenta: Hunter Performed By: #### L 500.06141, L500.81078, L500.91615, L550.10118 #### [facility] [address] [place] [address] Calcium [Mass/Vol] 8.4 mg/dL Low 8.5-10.5 [facility] Comment on above: Order Comment: Campu s: M Result Comment: NOTE NEW NORMAL RANGE DUE TO REAGENT CHANGE Performed By: #### L 500.20748, L500.66831, L500.25172, L550.23346 #### [facility] [address] [place] [address] Chloride [Moles/Vol] 107 mmol/L Normal 98-107 [facility] Comment on above: Order Comment: Campu s: M Performed By: #### L 500.00348, L500.36230, L500.87626, L550.16690 #### [facility] [address] [place] [address] CO2 [Moles/Vol] 23.0 mmol/L Normal 21-32 [facility] Comment on above: Order Comment: Campu s: M Performed By: #### L 500.07533, L500.14917, L500.57876, L550.36867 #### [facility] [place] [address] Creatinine [Mass/Vol] 1.10 mg/dL High 0.510-0.950 [facility] Comment on above: Order Comment: Campu s: M Result Comment: Joanie ents receiving either N-Acetylcysteine (NAC) or Metamizole prior to venipuncture, may have falsely depressed results. Performed By: #### L 500.35126, L500.60482, L500.97552, L550.29596 #### [facility] [address] [place], [place] [address] Glucose [Mass/Vol] 102 mg/dL High 70-100 [facility] Comment on above: Order Comment: Campu s: M Result Comment: 70-1 00- Normal Fasting; 100-125 Impaired Fasting; greater than 126 on more than one result- Diabetes. ADA guidelines. Results may be falsely elevated after the administration of Sulfapyridine. Results may be falsely depressed after the administration of Sulfasalazine. Performed By: #### L 500.46299, L500.94042, L500.00470, L550.03858 #### [facility] [address] [place] [address] Potassium [Moles/Vol] 3.5 mmol/L Normal 3.5-5.1 [facility] Comment on above: Order Comment: Campu s: M Performed By: #### L 500.10442, L500.89261, L500.16936, L550.86919 #### [facility] [address] [place] [address] Sodium [Moles/Vol] 141 mmol/L Normal 136-145 [facility] Comment on above: Order Comment: Campu s: M Performed By: #### L 500.84318, L500.06607, L500.15206, L550.37365 #### [facility] [address] [place] [address] Urea nitrogen [Mass/Vol] 12 mg/dL Normal 7-26 [facility] Comment on above: Order Comment: Campu s: M Performed By: #### L 500.93762, L500.13401, L500.07197, L550.19741 #### [facility] [address] [place] [address] Urea nitrogen/Creatinine [Mass ratio] 11 mg/mg Low 15-24 [facility] Comment on above: Order Comment: Campu s: M Performed By: #### L 500.41185, L500.61854, L500.45354, L550.99403 #### [facility] [address] [place], [place] [address] CBC W/DIFFon 12-20-2021 BASO ABS 0.00 K/CU MM Normal 0-0.2 [facility] Comment on above: Order Comment: Campu s: M Performed By: #### L 200.44395 #### [facility] [address] [place] [address] Basophils/100 WBC (Bld) 0.3 % Normal 0-2 [facility] Comment on above: Order Comment: Campu s: M Performed By: #### L 200.30132 #### [facility] [address] [place] [address] EOS ABS 0.00 K/CU MM Normal 0-0.5 [facility] Comment on above: Order Comment: Campu s: M Performed By: #### L 200.07478 #### [facility] [address] [place] [address] Eosinophils/100 WBC (Bld) 0.0 % Normal 0-5 [facility] Comment on above: Order Comment: Campu s: M Performed By: #### L 200.29674 #### [facility] [address] [place] [address] Erythrocyte distribution width (RBC) [Ratio] 14.9 % High 11-14.5 [facility] Comment on above: Order Comment: Campu s: M Performed By: #### L 200.00658 #### [facility] [address] [place] [address] Hematocrit (Bld) [Volume fraction] 28.9 % Low 35.0-47.0 [facility] Comment on above: Order Comment: Campu s: M Performed By: #### L 200.25894 #### [facility] [address] [place] [address] Hemoglobin (Bld) [Mass/Vol] 9.4 g/dL Low 11.5-15.5 [facility] Comment on above: Order Comment: Campu s: M Performed By: #### L 200.03885 #### [facility] [address] [place] [address] IMMATR GRAN ABS 0.10 K/CU MM Normal Less than 2 [facility] Comment on above: Order Comment: Campu s: M Performed By: #### L 200.86280 #### [facility] [address] [place] [address] IMMATURE GRAN % 1.2 % Normal Less than 2 [facility] Comment on above: Order Comment: Campu s: M Performed By: #### L 200.42045 #### [facility] [address] [place] [address] LYMPH ABS 0.40 K/CU MM Low 0.9-4.4 [facility] Comment on above: Order Comment: Campu s: M Performed By: #### L 200.48027 #### [facility] [address] [place] [address] Lymphocytes/100 WBC (Bld) 3.9 % Low 20-40 [facility] Comment on above: Order Comment: Campu s: M Performed By: #### L 200.97939 #### [facility] [address] [place] [address] MCHC (RBC) [Mass/Vol] 32.5 g/dL Normal 32.0-36.0 [facility] Comment on above: Order Comment: Campu s: M Performed By: #### L 200.46685 #### [facility] [address] [place] [address] MCV (RBC) [Entitic vol] 90.6 fL Normal 80.0-99.0 [facility] Comment on above: Order Comment: Campu s: M Result Comment: Repe ated and verified. Performed By: #### L 200.36763 #### [facility] [address] [place] [address] MONO ABS 0.30 K/CU MM Normal 0.1-1.1 [facility] Comment on above: Order Comment: Campu s: M Performed By: #### L 200.89504 #### [facility] [address] [place] [address] Monocytes/100 WBC (Bld) 2.8 % Normal 2-10 [facility] Comment on above: Order Comment: Campu s: M Performed By: #### L 200.56785 #### [facility] [address] [place] [address] NEUTROPHIL ABS 10.30 K/CU MM High 2.0-8.3 [facility] Comment on above: Order Comment: Campu s: M Performed By: #### L 200.68266 #### [facility] [address] [place] [address] Neutrophils/100 WBC (Bld) 91.8 % High 45-75 [facility] Comment on above: Order Comment: Campu s: M Performed By: #### L 200.66988 #### [facility] [address] [place] [address] Nucleated RBC/100 WBC (Bld) [Ratio] 0.0 % Normal Less than 1 [facility] Comment on above: Order Comment: Campu s: M Performed By: #### L 200.33791 #### [facility] [address] [place] [address] Platelet mean volume (Bld) [Entitic vol] 10.6 fL Normal 9.4-12.4 [facility] Comment on above: Order Comment: Campu s: M Performed By: #### L 200.36782 #### [facility] [address] [place] [address] PLT 297 K/CU MM Normal 150-450 [facility] Comment on above: Order Comment: Campu s: M Performed By: #### L 200.72749 #### [facility] [address] [place] [address] RBC 3.19 M/CU MM Low 3.90-5.30 [facility] Comment on above: Order Comment: Everu s: M Performed By: #### L 200.06900 #### [facility] [address] [place] [address] WBC 11.2 K/CUMM High 4.5-11.0 [facility] Comment on above: Order Comment: Everu s: M Performed By: #### L 200.56778 #### [facility] [address] [place] [address] CT ABD/PEL W IV CONTRAST ONL Yon [...] effusions. Heart size is within normal limits. Preform Machine Operator (topogram) images: No additional findings. IMPRESSION: 1. [...] VALADEZ M.D. Signed By: PAULO VALADEZ M.D. [facility] 12-20-2021 EMERGENCY PHYSICIAN REPORT This is a preliminary report only, as the practitioner review and authentication has not occurred. [facility] ER PHYSICIAN ASSESSMENT RECORDS : FlexChartData Event Time: 12/20/2021 13:05 [facility] Status: Signed [facility] Adina Escobar [[id number]] Mid-Level Chart (V2b) 71 / F / 1950 Chart created at 12/20/2021 12:54 by Aly Granados PA-C Chart closed at 12/20/2021 14:02 Entry in Emergency Department at 12/20/2021 12:19, departure at 12/20/2021 15:46 Patient Name: Adina Escobar Record Number: [id number] Date: 12/20/2021 12:54 Entered Department at: 12/20/2021 12:19 Patient Seen at: 12/20/2021 12:58 Historian: Patient Chief Complaint:c/o left upper abdominal pain, at [facility] for bowl obst. surgery. was suppose to go home today. n/v today after started on mechanical soft diet. Nursing triage/initial assessment reviewed and confirmed and Initial Vital Signs reviewed. Temperature: 99.1 F (37.3 C). Pulse: 110. Respiratory Rate: 20. Blood-pressure: 131/74. Oxygen Saturation: 97%. History of Present Illness: 71-Year-old female presents emergency department via EMS from [facility]. About 2 months ago she had a bowel obstruction that needed resected by Dr. Jaswant Moseley at [facility]. She did well was discharged but then developed an infection and questionable abscess. She was readmitted. She was [facility] PATIENT NAME: ADINA ESCOBAR I [address] [facility] [address] Peña MEDICAL REC #: [id number] [place] [address] EMERGENCY DEPARTMENT REPORT EMERGENCY DEPARTMENT PHYSICIAN started on TPN at that time.. She needed no further surgical intervention but states that the initial resection was quite complicated as far as length of procedure and severity according to her. She states she saw her surgeon yesterday who discharged her from [facility] she was supposed to go home [...] Breath Sounds Cardio-Vascular: No rub; Tachycardic regular [facility] PATIENT NAME: ADINA ESCOBAR I [address] [facility] [address] Peña MEDICAL REC #: [id number] [place] [address] EMERGENCY DEPARTMENT REPORT EMERGENCY DEPARTMENT PHYSICIAN rhythm [...] information as of 12/20/2021, 1:11 pm 141 --------+--------+-------- andlt; 102* Anion Gap = 11 3.5 BUN/CREA: 11; CALCIUM TOTAL: 8.4 Mg/Dl Imaging Study Obtained: CT ABD/PEL W IV CONTRAST ONLY Radiology: Image Reviewed and Interpreted by Radiologist. Re-Evaluation: 12:57: Dr. Jaswant Moseley [id number]. 13:19: Patient is had most of her medical care by her surgeon (more content not included)... Normal [facility] GFR ESTon 12-20-2021 IF AMER 59 [facility] Comment on above: Order Comment: Campu s: M Performed By: #### L 500.92108, L500.21116, L500.39262, L550.81835 #### [facility] [address] [place] [address] IF non-AFR AMER 49 [facility] Comment on above: Order Comment: Campu s: M Performed By: #### L 500.23178, L500.77159, L500.21827, L550.46711 #### [facility] [address] [place] [id number] LACTATE BLOODon 12-20-2021 LACTATE BLOOD 2.04 MMOL/L High 0.40-2.00 [facility] Comment on above: Order Comment: Valentina armenta: M Performed By: #### L 500.06630, L500.25864, L500.32042, L550.93310 #### [facility] [address] [place] [address] [id number] 12-20-2021 SARS-CoV-2 (COVID-19) RNA RENATA+probe Ql (Unsp spec) Negative Invalid Interpretation Code Negative [facility] Comment on above: Order Comment: Valentina armenta: Hunter Result Comment: RESU LTS CALLED TO AND [...] performed by PCR. Performed By: #### L 550.97958, L500.14042, L500.02907, L500.60169 #### [facility] [address] [place] [address] BMPon 12-19-2021 Anion gap [Moles/Vol] 9 mmol/L Normal 5-16 [facility] Comment on above: Performed By: #### L 550.24992, L500.33669, L500.09649, L500.99737 #### [facility] [place] [address] Calcium [Mass/Vol] 8.5 mg/dL Normal 8.5-10.5 [facility] Comment on above: Result Comment: NOTE NEW NORMAL RANGE DUE TO REAGENT CHANGE Performed By: #### L 550.35426, L500.74387, L500.36096, L500.95480 #### [facility] [address] [place] [address] Chloride [Moles/Vol] 112 mmol/L High 98-107 [facility] Comment on above: Performed By: #### L 550.99737, L500.13447, L500.34051, L500.34825 #### [facility] [place] [address] CO2 [Moles/Vol] 22.0 mmol/L Normal 21-32 [facility] Comment on above: Performed By: #### L 550.11633, L500.41849, L500.12384, L500.96763 #### [facility] [address] [place] [address] Creatinine [Mass/Vol] 0.95 mg/dL Normal 0.510-0.950 [facility] Comment on above: Result Comment: Joanie ents receiving either N-Acetylcysteine (NAC) or Metamizole prior to venipuncture, may have falsely depressed results. Performed By: #### L 550.51362, L500.75053, L500.06017, L500.54716 #### [facility] [address] [place] [address] Glucose [Mass/Vol] 116 mg/dL High 70-100 [facility] Comment on above: Result Comment: 70-1 00- Normal Fasting; 100-125 Impaired Fasting; greater than 126 on more than one result- Diabetes. ADA guidelines. Results may be falsely elevated after the administration of Sulfapyridine. Results may be falsely depressed after the administration of Sulfasalazine. Performed By: #### L 550.50567, L500.84724, L500.85261, L500.66402 #### [facility] [place] [address] Potassium [Moles/Vol] 3.8 mmol/L Normal 3.5-5.1 [facility] Comment on above: Result Comment: Slig ht Hemolysis, Result may be affected. Performed By: #### L 550.96322, L500.79682, L500.17039, L500.98378 #### [facility] [address] [place] [address] Sodium [Moles/Vol] 143 mmol/L Normal 136-145 [facility] Comment on above: Performed By: #### L 550.10113, L500.62961, L500.78279, L500.18003 #### [facility] [address] [place] [address] Urea nitrogen [Mass/Vol] 12 mg/dL Normal 7-26 [facility] Comment on above: Performed By: #### L 550.34863, L500.98858, L500.84941, L500.34646 #### [facility] [address] [place] [address] Urea nitrogen/Creatinine [Mass ratio] 13 mg/mg Low 15-24 [facility] Comment on above: Performed By: #### L 550.03966, L500.67492, L500.00878, L500.04880 #### [facility] [address] [place] [address] CBCon 12-19-2021 Erythrocyte distribution width (RBC) [Ratio] 15.2 % High 11-14.5 [facility] Comment on above: Performed By: #### L 500.36413, L500.09591, L500.01188, L550.80923 #### [facility] [address] [place], [place] [address] Hematocrit (Bld) [Volume fraction] 31.8 % Low 35.0-47.0 [facility] Comment on above: Performed By: #### L 500.60234, L500.07882, L500.73807, L550.74517 #### [facility] [address] [place] [address] Hemoglobin (Bld) [Mass/Vol] 9.6 g/dL Low 11.5-15.5 [facility] Comment on above: Performed By: #### L 500.93715, L500.29344, L500.20939, L550.79593 #### [facility] [address] [place] [address] MCHC (RBC) [Mass/Vol] 30.2 g/dL Low 32.0-36.0 [facility] Comment on above: Performed By: #### L 500.86430, L500.47158, L500.59733, L550.79111 #### [facility] [address] [place] [address] MCV (RBC) [Entitic vol] 97.2 fL Normal 80.0-99.0 [facility] Comment on above: Performed By: #### L 500.90233, L500.48943, L500.18183, L550.09486 #### [facility] [address] [place] [address] Nucleated RBC/100 WBC (Bld) [Ratio] 0.0 % Normal Less than 1 [facility] Comment on above: Performed By: #### L 500.73134, L500.80217, L500.84099, L550.23288 #### [facility] [address] [place] [address] Platelet mean volume (Bld) [Entitic vol] 12.4 fL Normal 9.4-12.4 [facility] Comment on above: Performed By: #### L 500.64046, L500.55761, L500.89760, L550.72147 #### [facility] [address] [place] [address] PLT 299 K/CU MM Normal 150-450 [facility] Comment on above: Performed By: #### L 500.73589, L500.86373, L500.86603, L550.07854 #### [facility] [address] [place] [address] RBC 3.27 M/CU MM Low 3.90-5.30 [facility] Comment on above: Performed By: #### L 500.09488, L500.96352, L500.08990, L550.77940 #### [facility] [address] [place] [address] WBC 5.8 K/CUMM Normal 4.5-11.0 [facility] Comment on above: Performed By: #### L 500.96400, L500.38649, L500.30194, L550.93448 #### [facility] [address] [place] [address] CHOLon 12-19-2021 CHOL 156 MG/dL Normal 0-199 [facility] Comment on above: Performed By: #### L 550.43136, L500.21479, L500.43220, L500.41958 #### [facility] [address] [place], [place] [address] GFR ESTon 12-19-2021 IF AMER Greater than 60 Normal [facility] Comment on above: Performed By: #### L 550.62251, L500.82043, L500.60543, L500.23566 #### [facility] [address] [place], [place] [address] IF non-AFR AMER 58 Normal [facility] Comment on above: Performed By: #### L 550.36180, L500.51258, L500.85903, L500.51102 #### [facility] [address] [place], [place] [address] LDHon 12-19-2021 LDH 200 U/L Normal 84-246 [facility] Comment on above: Performed By: #### L 550.68586, L500.71109, L500.10188, L500.74975 #### [facility] [address] [place] [address] PHOSon 12-19-2021 Phosphate [Mass/Vol] 4.30 mg/dL Normal 2.5-4.9 [facility] Comment on above: Result Comment: Elev ated m-protein (paraprotein) levels in the serum may be exhibited in patients with monoclonal gammopathies, causing falsely elevated inorganic phosphorus results. Performed By: #### L 550.44470, L500.33896, L500.15089, L500.65984 #### [facility] [address] [place] [address] PREALBon 12-19-2021 PREALB 26 MG/DL Normal 20-40 [facility] Comment on above: Performed By: #### L 550.92762, L500.58901, L500.66007, L500.15586 #### [facility] [address] [place] [address] PTon 12-19-2021 INR Coag (PPP) [Relative time] 0.98 {INR} Normal 0.9-1.1 [facility] Comment on above: Result Comment: Az mmended PT INR therapeutic range for snf and prophylactic therapy is 2.0 - 3.0. For heart valve and shunt patients the range is 2.5 - 3.5. Performed By: #### L 550.33731, L500.35565, L500.90555, L500.78548 #### [facility] [address] [place] [address] PTS 10.7 SECONDS Normal 9.5-12.0 [facility] Comment on above: Performed By: #### L 550.62905, L500.71010, L500.80230, L500.69368 #### [facility] [address] [place] [address] SGOT (AST)on 12-19-2021 AST [Catalytic activity/Vol] 78 U/L High 8-34 [facility] Comment on above: Result Comment: RESU LTS MAY BE FALSELY DEPRESSED AFTER THE ADMINISTRATION OF SULFASALAZINE AND/OR SULFAPYRIDINE. Performed By: #### L 550.73734, L500.22297, L500.44914, L500.52451 #### [facility] [address] [place] [address] SGPT (ALT)on 12-19-2021 ALT [Catalytic activity/Vol] 76 U/L High 13-61 [facility] Comment on above: Result Comment: RESU LTS MAY BE FALSELY DEPRESSED AFTER THE ADMINISTRATION OF SULFASALAZINE AND/OR SULFAPYRIDINE. Performed By: #### L 550.31747, L500.06229, L500.29607, L500.84749 #### [facility] [address] [place], [place] [address] TPon 12-19-2021 Protein [Mass/Vol] 5.6 g/dL Low 6.0-8.5 [facility] Comment on above: Performed By: #### L 550.17893, L500.91283, L500.65409, L500.94529 #### [facility] [address] [place], [place] [address] TRIGon 12-19-2021 Triglyceride [Mass/Vol] 113 mg/dL Normal 30-149 [facility] Comment on above: Result Comment: Joanie ents receiving either N-Acetylcysteine (NAC) or Metamizole prior to venipuncture, may have falsely depressed results. Performed By: #### L 550.56834, L500.59027, L500.45038, L500.78763 #### [facility] [address] [place], [place] [address] BMPon 12-15-2021 Anion gap [Moles/Vol] 12 mmol/L Normal 5-16 [facility] Comment on above: Performed By: #### L 550.68480, L500.65327, L500.42354, L500.60766 #### [facility] [place] [address] Calcium [Mass/Vol] 8.9 mg/dL Normal 8.5-10.5 [facility] Comment on above: Result Comment: NOTE NEW NORMAL RANGE DUE TO REAGENT CHANGE Performed By: #### L 550.03179, L500.53274, L500.57188, L500.49448 #### [facility] [address] [place] [address] Chloride [Moles/Vol] 111 mmol/L High 98-107 [facility] Comment on above: Performed By: #### L 550.87680, L500.19284, L500.42420, L500.41247 #### [facility] [address] [place] [address] CO2 [Moles/Vol] 18.0 mmol/L Low 21-32 [facility] Comment on above: Performed By: #### L 550.97979, L500.55579, L500.16957, L500.05360 #### [facility] [address] [place] [address] Creatinine [Mass/Vol] 0.95 mg/dL Normal 0.510-0.950 [facility] Comment on above: Result Comment: Joanie ents receiving either N-Acetylcysteine (NAC) or Metamizole prior to venipuncture, may have falsely depressed results. Performed By: #### L 550.77979, L500.52199, L500.32263, L500.50510 #### [facility] [place] [address] Glucose [Mass/Vol] 129 mg/dL High 70-100 [facility] Comment on above: Result Comment: 70-1 00- Normal Fasting; 100-125 Impaired Fasting; greater than 126 on more than one result- Diabetes. ADA guidelines. Results may be falsely elevated after the administration of Sulfapyridine. Results may be falsely depressed after the administration of Sulfasalazine. Performed By: #### L 550.96294, L500.36025, L500.45824, L500.33100 #### [facility] [address] [place] [address] Potassium [Moles/Vol] 4.1 mmol/L Normal 3.5-5.1 [facility] Comment on above: Result Comment: Slig ht Hemolysis, Result may be affected. Performed By: #### L 550.13744, L500.11935, L500.76203, L500.18987 #### [facility] [address] [place] [address] Sodium [Moles/Vol] 140 mmol/L Normal 136-145 [facility] Comment on above: Performed By: #### L 550.85638, L500.64162, L500.33987, L500.82648 #### [facility] [address] [place] [address] Urea nitrogen [Mass/Vol] 23 mg/dL Normal 7-26 [facility] Comment on above: Performed By: #### L 550.67924, L500.78671, L500.28222, L500.24709 #### [facility] [address] [place] [address] Urea nitrogen/Creatinine [Mass ratio] 24 mg/mg Normal 15-24 [facility] Comment on above: Performed By: #### L 550.03971, L500.78712, L500.40181, L500.88484 #### [facility] [address] [place] [address] GFR ESTon 12-15-2021 IF AMER Greater than 60 Normal [facility] Comment on above: Performed By: #### L 550.57731, L500.05622, L500.77606, L500.39094 #### [facility] [address] [place] [address] IF non-AFR AMER 58 Normal [facility] Comment on above: Performed By: #### L 550.37013, L500.96420, L500.64734, L500.32141 #### [facility] [address] [place] [address] MAGNESIUMon 12-15-2021 Magnesium [Mass/Vol] 1.9 mg/dL Normal 1.6-2.6 [facility] Comment on above: Performed By: #### L 550.06815, L500.42776, L500.50452, L500.67447 #### [facility] [address] [place] [address] PREALBon 12-15-2021 PREALB 32 MG/DL Normal 20-40 [facility] Comment on above: Performed By: #### L 550.21355, L500.13589, L500.40484, L500.13163 #### [facility] [address] [place] [address] PTon 12-15-2021 INR Coag (PPP) [Relative time] 1.00 {INR} Normal 0.9-1.1 [facility] Comment on above: Result Comment: Az mmended PT INR therapeutic range for termite treater and prophylactic therapy is 2.0 - 3.0. For heart valve and shunt patients the range is 2.5 - 3.5. Performed By: #### L 550.21608, L500.32931, L500.62210, L500.73981 #### [facility] [address] [place] [address] PTS 10.9 SECONDS Normal 9.5-12.0 [facility] Comment on above: Performed By: #### L 550.86445, L500.38819, L500.64519, L500.08027 #### [facility] [address] [place] [address] BMPon 12-12-2021 Anion gap [Moles/Vol] 9 mmol/L Normal 5-16 [facility] Comment on above: Performed By: #### L 550.16162, L500.09702, L500.27398, L500.76162 #### [facility] [address] [place] [address] Calcium [Mass/Vol] 9.3 mg/dL Normal 8.5-10.5 [facility] Comment on above: Result Comment: NOTE NEW NORMAL RANGE DUE TO REAGENT CHANGE Performed By: #### L 550.64269, L500.92416, L500.99622, L500.70590 #### [facility] [address] [place] [address] Chloride [Moles/Vol] 108 mmol/L High 98-107 [facility] Comment on above: Performed By: #### L 550.99080, L500.87584, L500.80131, L500.18112 #### [facility] [address] [place] [address] CO2 [Moles/Vol] 23.0 mmol/L Normal 21-32 [facility] Comment on above: Performed By: #### L 550.84271, L500.11197, L500.17909, L500.29326 #### [facility] [address] [place] [address] Creatinine [Mass/Vol] 1.02 mg/dL High 0.510-0.950 [facility] Comment on above: Result Comment: Joanie ents receiving either N-Acetylcysteine (NAC) or Metamizole prior to venipuncture, may have falsely depressed results. Performed By: #### L 550.33955, L500.82447, L500.30707, L500.41583 #### [facility] [address] [place] [address] Glucose [Mass/Vol] 115 mg/dL High 70-100 [facility] Comment on above: Result Comment: 70-1 00- Normal Fasting; 100-125 Impaired Fasting; greater than 126 on more than one result- Diabetes. ADA guidelines. Results may be falsely elevated after the administration of Sulfapyridine. Results may be falsely depressed after the administration of Sulfasalazine. Performed By: #### L 550.12880, L500.65787, L500.88258, L500.38789 #### [facility] [address] [place] [address] Potassium [Moles/Vol] 4.4 mmol/L Normal 3.5-5.1 [facility] Comment on above: Performed By: #### L 550.64630, L500.90297, L500.77449, L500.89817 #### [facility] [address] [place] [address] Sodium [Moles/Vol] 140 mmol/L Normal 136-145 [facility] Comment on above: Performed By: #### L 550.07155, L500.17727, L500.15126, L500.41536 #### [facility] [address] [place] [address] Urea nitrogen [Mass/Vol] 22 mg/dL Normal 7-26 [facility] Comment on above: Performed By: #### L 550.32575, L500.19263, L500.29803, L500.28137 #### [facility] [address] [place] [address] Urea nitrogen/Creatinine [Mass ratio] 22 mg/mg Normal 15-24 [facility] Comment on above: Performed By: #### L 550.31201, L500.52795, L500.23422, L500.75827 #### [facility] [address] [place] [address] CBCon 12-12-2021 Erythrocyte distribution width (RBC) [Ratio] 15.0 % High 11-14.5 [facility] Comment on above: Performed By: #### L 500.84882, L500.27340, L500.17693, L550.09746 #### [facility] [address] [place] [address] Hematocrit (Bld) [Volume fraction] 30.3 % Low 35.0-47.0 [facility] Comment on above: Performed By: #### L 500.99639, L500.57185, L500.80669, L550.88009 #### [facility] [address] [place] [address] Hemoglobin (Bld) [Mass/Vol] 10.0 g/dL Low 11.5-15.5 [facility] Comment on above: Performed By: #### L 500.95715, L500.77910, L500.09971, L550.09826 #### [facility] [address] [place] [address] MCHC (RBC) [Mass/Vol] 33.0 g/dL Normal 32.0-36.0 [facility] Comment on above: Performed By: #### L 500.75003, L500.30293, L500.28841, L550.06091 #### [facility] [address] [place] [address] MCV (RBC) [Entitic vol] 90.2 fL Normal 80.0-99.0 [facility] Comment on above: Performed By: #### L 500.02491, L500.47135, L500.15850, L550.85759 #### [facility] [address] [place] [address] Nucleated RBC/100 WBC (Bld) [Ratio] 0.0 % Normal Less than 1 [facility] Comment on above: Performed By: #### L 500.51137, L500.34470, L500.46442, L550.93304 #### [facility] [address] [place] [address] Platelet mean volume (Bld) [Entitic vol] 11.1 fL Normal 9.4-12.4 [facility] Comment on above: Performed By: #### L 500.05262, L500.13162, L500.62384, L550.00077 #### [facility] [address] [place] [address] PLT 373 K/CU MM Normal 150-450 [facility] Comment on above: Performed By: #### L 500.32898, L500.64684, L500.20188, L550.12138 #### [facility] [address] [place] [address] RBC 3.36 M/CU MM Low 3.90-5.30 [facility] Comment on above: Performed By: #### L 500.64319, L500.25546, L500.50105, L550.67815 #### [facility] [address] [place] [address] WBC 8.5 K/CUMM Normal 4.5-11.0 [facility] Comment on above: Performed By: #### L 500.75303, L500.01474, L500.87766, L550.38282 #### [facility] [address] [place] [address] CHOLon 12-12-2021 CHOL 194 MG/dL Normal 0-199 [facility] Comment on above: Performed By: #### L 550.17699, L500.16100, L500.53539, L500.51856 #### [facility] [address] [place] [address] GFR ESTon 12-12-2021 IF AMER Greater than 60 Normal [facility] Comment on above: Performed By: #### L 550.66699, L500.13704, L500.63762, L500.91325 #### [facility] [address] [place], [place] [address] IF non-AFR AMER 54 Normal [facility] Comment on above: Performed By: #### L 550.68427, L500.45139, L500.89648, L500.42168 #### [facility] [address] [place] [address] LDHon 12-12-2021 LDH 234 U/L Normal 84-246 [facility] Comment on above: Performed By: #### L 550.91909, L500.56004, L500.81892, L500.59764 #### [facility] [address] [place] [address] PHOSon 12-12-2021 Phosphate [Mass/Vol] 4.40 mg/dL Normal 2.5-4.9 [facility] Comment on above: Result Comment: Elev ated m-protein (paraprotein) levels in the serum may be exhibited in patients with monoclonal gammopathies, causing falsely elevated inorganic phosphorus results. Performed By: #### L 550.07585, L500.58918, L500.00996, L500.27207 #### [facility] [address] [place] [address] PREALBon 12-12-2021 PREALB 35 MG/DL Normal 20-40 [facility] Comment on above: Performed By: #### L 550.66502, L500.78605, L500.51734, L500.10385 #### [facility] [address] [place], [place] [address] PTon 12-12-2021 INR Coag (PPP) [Relative time] 0.91 {INR} Normal 0.9-1.1 [facility] Comment on above: Result Comment: Az mmended PT INR therapeutic range for termite treater and prophylactic therapy is 2.0 - 3.0. For heart valve and shunt patients the range is 2.5 - 3.5. Performed By: #### L 200.83281 #### [facility] [address] [place] [address] PTS 10.0 SECONDS Normal 9.5-12.0 [facility] Comment on above: Performed By: #### L 200.48064 #### [facility] [address] [place] [address] SGOT (AST)on 12-12-2021 AST [Catalytic activity/Vol] 114 U/L High 8-34 [facility] Comment on above: Result Comment: RESU LTS MAY BE FALSELY DEPRESSED AFTER THE ADMINISTRATION OF SULFASALAZINE AND/OR SULFAPYRIDINE. Performed By: #### L 550.20648, L500.07909, L500.58587, L500.77479 #### [facility] [address] [place] [address] SGPT (ALT)on 12-12-2021 ALT [Catalytic activity/Vol] 112 U/L High 13-61 [facility] Comment on above: Result Comment: RESU LTS MAY BE FALSELY DEPRESSED AFTER THE ADMINISTRATION OF SULFASALAZINE AND/OR SULFAPYRIDINE. Performed By: #### L 550.17961, L500.22258, L500.21755, L500.69123 #### [facility] [address] [place] [address] TPon 12-12-2021 Protein [Mass/Vol] 6.5 g/dL Normal 6.0-8.5 [facility] Comment on above: Performed By: #### L 550.60456, L500.47958, L500.52680, L500.34808 #### [facility] [place] [id number] TRIGon 12-12-2021 Triglyceride [Mass/Vol] 129 mg/dL Normal 30-149 [facility] Comment on above: Result Comment: Joanie ents receiving either N-Acetylcysteine (NAC) or Metamizole prior to venipuncture, may have falsely depressed results. Performed By: #### L 550.54185, L500.16985, L500.99536, L500.61124 #### [facility] [address] [place] [address] BMPon 12-08-2021 Anion gap [Moles/Vol] 10 mmol/L Normal 5-16 [facility] Comment on above: Performed By: #### L 500.29269, L500.03417, L500.99264, L550.43567 #### [facility] [address] [place] [address] Calcium [Mass/Vol] 8.8 mg/dL Normal 8.5-10.5 [facility] Comment on above: Result Comment: NOTE NEW NORMAL RANGE DUE TO REAGENT CHANGE Performed By: #### L 500.18055, L500.32955, L500.55672, L550.63093 #### [facility] [address] [place] [address] Chloride [Moles/Vol] 111 mmol/L High 98-107 [facility] Comment on above: Performed By: #### L 500.07211, L500.40089, L500.92504, L550.84315 #### [facility] [address] [place] [address] CO2 [Moles/Vol] 22.0 mmol/L Normal 21-32 [facility] Comment on above: Performed By: #### L 500.48707, L500.76650, L500.22561, L550.05231 #### [facility] [place] [address] Creatinine [Mass/Vol] 0.96 mg/dL High 0.510-0.950 [facility] Comment on above: Result Comment: Joanie ents receiving either N-Acetylcysteine (NAC) or Metamizole prior to venipuncture, may have falsely depressed results. Performed By: #### L 500.16330, L500.71450, L500.61526, L550.01879 #### [facility] [address] [place] [address] Glucose [Mass/Vol] 123 mg/dL High 70-100 [facility] Comment on above: Result Comment: 70-1 00- Normal Fasting; 100-125 Impaired Fasting; greater than 126 on more than one result- Diabetes. ADA guidelines. Results may be falsely elevated after the administration of Sulfapyridine. Results may be falsely depressed after the administration of Sulfasalazine. Performed By: #### L 500.05081, L500.53771, L500.78107, L550.81024 #### [facility] [address] [place] [address] Potassium [Moles/Vol] 4.1 mmol/L Normal 3.5-5.1 [facility] Comment on above: Performed By: #### L 500.66370, L500.55319, L500.26457, L550.65366 #### [facility] [place] [address] Sodium [Moles/Vol] 143 mmol/L Normal 136-145 [facility] Comment on above: Performed By: #### L 500.23453, L500.45977, L500.75416, L550.50731 #### [facility] [place] [address] Urea nitrogen [Mass/Vol] 20 mg/dL Normal 7-26 [facility] Comment on above: Performed By: #### L 500.85923, L500.89430, L500.58709, L550.95681 #### [facility] [address] [place] [address] Urea nitrogen/Creatinine [Mass ratio] 21 mg/mg Normal 15-24 [facility] Comment on above: Performed By: #### L 500.81787, L500.46119, L500.44924, L550.78912 #### [facility] [address] [place] [address] GFR ESTon 12-08-2021 IF AMER Greater than 60 Normal [facility] Comment on above: Performed By: #### L 500.04337, L500.08367, L500.92904, L550.57224 #### [facility] [address] [place] [address] IF non-AFR AMER 57 Normal [facility] Comment on above: Performed By: #### L 500.76488, L500.85782, L500.26378, L550.64414 #### [facility] [address] [place] [address] MAGNESIUMon 12-08-2021 Magnesium [Mass/Vol] 1.9 mg/dL Normal 1.6-2.6 [facility] Comment on above: Performed By: #### L 500.15427, L500.42530, L500.87958, L550.61523 #### [facility] [address] [place] [address] PREALBon 12-08-2021 PREALB 29 MG/DL Normal 20-40 [facility] Comment on above: Performed By: #### L 500.04093, L500.58006, L500.26922, L550.74183 #### [facility] [address] [place] [address] PTon 12-08-2021 INR Coag (PPP) [Relative time] 0.99 {INR} Normal 0.9-1.1 [facility] Comment on above: Result Comment: Az mmended PT INR therapeutic range for termite treater and prophylactic therapy is 2.0 - 3.0. For heart valve and shunt patients the range is 2.5 - 3.5. Performed By: #### L 500.44557, L500.79373, L500.18449, L550.02668 #### [facility] [address] [place] [address] PTS 10.8 SECONDS Normal 9.5-12.0 [facility] Comment on above: Performed By: #### L 500.55237, L500.86555, L500.61259, L550.43837 #### [facility] [address] [place] [address] BMPon 12-05-2021 Anion gap [Moles/Vol] 12 mmol/L Normal 5-16 [facility] Comment on above: Performed By: #### L 500.26267, L500.99618, L500.22241, L550.24097 #### [facility] [address] [place] [address] Calcium [Mass/Vol] 8.8 mg/dL Normal 8.5-10.5 [facility] Comment on above: Result Comment: NOTE NEW NORMAL RANGE DUE TO REAGENT CHANGE Performed By: #### L 500.47093, L500.56499, L500.08647, L550.39294 #### [facility] [address] [place] [address] Chloride [Moles/Vol] 112 mmol/L High 98-107 [facility] Comment on above: Performed By: #### L 500.68643, L500.71624, L500.74311, L550.30896 #### [facility] [address] [place] [address] 17274 CO2 [Moles/Vol] 19.0 mmol/L Low 21-32 [facility] Comment on above: Performed By: #### L 500.82787, L500.06909, L500.56874, L550.14325 #### [facility] [address] [place] [address] Creatinine [Mass/Vol] 0.91 mg/dL Normal 0.510-0.950 [facility] Comment on above: Result Comment: Joanie ents receiving either N-Acetylcysteine (NAC) or Metamizole prior to venipuncture, may have falsely depressed results. Performed By: #### L 500.48870, L500.43554, L500.34121, L550.89919 #### [facility] [address] [place] [address] Glucose [Mass/Vol] 126 mg/dL High 70-100 [facility] Comment on above: Result Comment: 70-1 00- Normal Fasting; 100-125 Impaired Fasting; greater than 126 on more than one result- Diabetes. ADA guidelines. Results may be falsely elevated after the administration of Sulfapyridine. Results may be falsely depressed after the administration of Sulfasalazine. Performed By: #### L 500.41412, L500.69990, L500.91543, L550.85150 #### [facility] [address] [place] [address] Potassium [Moles/Vol] 3.8 mmol/L Normal 3.5-5.1 [facility] Comment on above: Result Comment: Slig ht Hemolysis, Result may be affected. Performed By: #### L 500.92607, L500.12004, L500.46621, L550.10439 #### [facility] [place] [address] Sodium [Moles/Vol] 143 mmol/L Normal 136-145 [facility] Comment on above: Performed By: #### L 500.02585, L500.16824, L500.55822, L550.94780 #### [facility] [address] [place] [address] Urea nitrogen [Mass/Vol] 19 mg/dL Normal 7-26 [facility] Comment on above: Performed By: #### L 500.76602, L500.08924, L500.89485, L550.34356 #### [facility] [address] [place] [address] Urea nitrogen/Creatinine [Mass ratio] 21 mg/mg Normal 15-24 [facility] Comment on above: Performed By: #### L 500.51859, L500.82688, L500.78036, L550.71609 #### [facility] [address] [place] [address] CBCon 12-05-2021 Erythrocyte distribution width (RBC) [Ratio] 15.8 % High 11-14.5 [facility] Comment on above: Performed By: #### L 200.31787 #### [facility] [address] [place] [address] Hematocrit (Bld) [Volume fraction] 33.4 % Low 35.0-47.0 [facility] Comment on above: Performed By: #### L 200.01958 #### [facility] [address] [place] [address] Hemoglobin (Bld) [Mass/Vol] 10.3 g/dL Low 11.5-15.5 [facility] Comment on above: Performed By: #### L 200.89464 #### [facility] [address] [place], [place] [address] MCHC (RBC) [Mass/Vol] 30.8 g/dL Low 32.0-36.0 [facility] Comment on above: Performed By: #### L 200.23837 #### [facility] [address] [place] [address] MCV (RBC) [Entitic vol] 94.6 fL Normal 80.0-99.0 [facility] Comment on above: Performed By: #### L 200.76824 #### [facility] [address] [place] [address] Nucleated RBC/100 WBC (Bld) [Ratio] 0.0 % Normal Less than 1 [facility] Comment on above: Performed By: #### L 200.38557 #### [facility] [address] [place] [address] Platelet mean volume (Bld) [Entitic vol] 11.9 fL Normal 9.4-12.4 [facility] Comment on above: Performed By: #### L 200.88534 #### [facility] [address] [place] [address] PLT 285 K/CU MM Normal 150-450 [facility] Comment on above: Performed By: #### L 200.88721 #### [facility] [address] [place] [address] RBC 3.53 M/CU MM Low 3.90-5.30 [facility] Comment on above: Performed By: #### L 200.29048 #### [facility] [address] [place] [address] WBC 9.4 K/CUMM Normal 4.5-11.0 [facility] Comment on above: Performed By: #### L 200.03462 #### [facility] [address] [place], [place] [address] CHOLon 12-05-2021 CHOL 151 MG/dL Normal 0-199 [facility] Comment on above: Performed By: #### L 500.31486, L500.83441, L500.09304, L550.82849 #### [facility] [place] [address] GFR ESTon 12-05-2021 IF AMER Greater than 60 Normal [facility] Comment on above: Performed By: #### L 500.84265, L500.16375, L500.56086, L550.96978 #### [facility] [address] [place] [address] IF non-AFR AMER Greater than 60 Normal [facility] Comment on above: Performed By: #### L 500.18021, L500.83130, L500.55656, L550.61861 #### [facility] [address] [place], [place] [address] LDHon 12-05-2021 LDH 200 U/L Normal 84-246 [facility] Comment on above: Performed By: #### L 500.45922, L500.96628, L500.05226, L550.32214 #### [facility] [address] [place] [address] PHOSon 12-05-2021 Phosphate [Mass/Vol] 4.20 mg/dL Normal 2.5-4.9 [facility] Comment on above: Result Comment: Elev ated m-protein (paraprotein) levels in the serum may be exhibited in patients with monoclonal gammopathies, causing falsely elevated inorganic phosphorus results. Performed By: #### L 500.79390, L500.14354, L500.86209, L550.89779 #### [facility] [address] [place] [address] PREALBon 12-05-2021 PREALB 33 MG/DL Normal 20-40 [facility] Comment on above: Performed By: #### L 500.31766, L500.90589, L500.65059, L550.20063 #### [facility] [address] [place] [address] PTon 12-05-2021 INR Coag (PPP) [Relative time] 1.00 {INR} Normal 0.9-1.1 [facility] Comment on above: Result Comment: Az mmended PT INR therapeutic range for termite treater and prophylactic therapy is 2.0 - 3.0. For heart valve and shunt patients the range is 2.5 - 3.5. Performed By: #### L 200.08205 #### [facility] [address] [place] [address] PTS 10.9 SECONDS Normal 9.5-12.0 [facility] Comment on above: Performed By: #### L 200.76155 #### [facility] [address] [place] [address] SGOT (AST)on 12-05-2021 AST [Catalytic activity/Vol] 74 U/L High 8-34 [facility] Comment on above: Result Comment: RESU LTS MAY BE FALSELY DEPRESSED AFTER THE ADMINISTRATION OF SULFASALAZINE AND/OR SULFAPYRIDINE. Performed By: #### L 500.35120, L500.14828, L500.60052, L550.32561 #### [facility] [address] [place] [address] SGPT (ALT)on 12-05-2021 ALT [Catalytic activity/Vol] 78 U/L High 13-61 [facility] Comment on above: Result Comment: RESU LTS MAY BE FALSELY DEPRESSED AFTER THE ADMINISTRATION OF SULFASALAZINE AND/OR SULFAPYRIDINE. Performed By: #### L 500.61907, L500.88758, L500.37230, L550.70286 #### [facility] [address] [place] [address] TPon 12-05-2021 Protein [Mass/Vol] 5.9 g/dL Low 6.0-8.5 [facility] Comment on above: Performed By: #### L 500.42654, L500.99962, L500.85973, L550.48091 #### [facility] [place] [address] TRIGon 12-05-2021 Triglyceride [Mass/Vol] 150 mg/dL High 30-149 [facility] Comment on above: Result Comment: Joanie ents receiving either N-Acetylcysteine (NAC) or Metamizole prior to venipuncture, may have falsely depressed results. Performed By: #### L 500.97322, L500.39673, L500.41184, L550.33971 #### [facility] [address] [place] [address] BMPon 12-01-2021 Anion gap [Moles/Vol] 7 mmol/L Normal 5-16 [facility] Comment on above: Performed By: #### L 200.27127 #### [facility] [address] [place] [address] Calcium [Mass/Vol] 8.5 mg/dL Normal 8.5-10.5 [facility] Comment on above: Result Comment: NOTE NEW NORMAL RANGE DUE TO REAGENT CHANGE Performed By: #### L 200.06625 #### [facility] [place] [address] Chloride [Moles/Vol] 112 mmol/L High 98-107 [facility] Comment on above: Performed By: #### L 200.35131 #### [facility] [place] [address] CO2 [Moles/Vol] 21.0 mmol/L Normal 21-32 [facility] Comment on above: Performed By: #### L 200.88562 #### [facility] [place] [address] Creatinine [Mass/Vol] 0.86 mg/dL Normal 0.510-0.950 [facility] Comment on above: Result Comment: Joanie ents receiving either N-Acetylcysteine (NAC) or Metamizole prior to venipuncture, may have falsely depressed results. Performed By: #### L 200.34177 #### [facility] [address] [place] [address] Glucose [Mass/Vol] 135 mg/dL High 70-100 [facility] Comment on above: Result Comment: 70-1 00- Normal Fasting; 100-125 Impaired Fasting; greater than 126 on more than one result- Diabetes. ADA guidelines. Results may be falsely elevated after the administration of Sulfapyridine. Results may be falsely depressed after the administration of Sulfasalazine. Performed By: #### L 200.07455 #### [facility] [address] [place] [address] Potassium [Moles/Vol] 3.7 mmol/L Normal 3.5-5.1 [facility] Comment on above: Result Comment: Slig ht Hemolysis, Result may be affected. Performed By: #### L 200.28900 #### [facility] [address] [place] [address] Sodium [Moles/Vol] 140 mmol/L Normal 136-145 [facility] Comment on above: Performed By: #### L 200.21549 #### [facility] [address] [place] [address] Urea nitrogen [Mass/Vol] 18 mg/dL Normal 7-26 [facility] Comment on above: Performed By: #### L 200.09156 #### [facility] [address] [place] [address] Urea nitrogen/Creatinine [Mass ratio] 21 mg/mg Normal 15-24 [facility] Comment on above: Performed By: #### L 200.20565 #### [facility] [address] [place] [address] GFR ESTon 12-01-2021 IF AMER Greater than 60 Normal [facility] Comment on above: Performed By: #### L 200.66388 #### [facility] [address] [place] [address] IF non-AFR AMER Greater than 60 Normal [facility] Comment on above: Performed By: #### L 200.56128 #### [facility] [address] [place] [address] MAGNESIUMon 12-01-2021 Magnesium [Mass/Vol] 1.7 mg/dL Normal 1.6-2.6 [facility] Comment on above: Performed By: #### L 200.37894 #### [facility] [address] [place] [address] PREALBon 12-01-2021 PREALB 31 MG/DL Normal 20-40 [facility] Comment on above: Performed By: #### L 550.83749, L500.79411, L500.86590, L500.99696 #### [facility] [address] [place] [address] PTon 12-01-2021 INR Coag (PPP) [Relative time] 0.97 {INR} Normal 0.9-1.1 [facility] Comment on above: Result Comment: Az mmended PT INR therapeutic range for snf and prophylactic therapy is 2.0 - 3.0. For heart valve and shunt patients the range is 2.5 - 3.5. Performed By: #### L 500.86678, L500.01287, L500.72876, L550.08016 #### [facility] [address] [place] [address] PTS 10.6 SECONDS Normal 9.5-12.0 [facility] Comment on above: Performed By: #### L 500.44017, L500.21890, L500.55835, L550.15936 #### [facility] [address] [place], [place] [address] BMPon 11-28-2021 Glucose [Mass/Vol] 845 mg/dL Critically high 70-100 M [facility] Comment on above: Result Comment: Vibhabrenda ical Result(s) Called at: 12:06:26 on 11/28/2021 by [facility]. Called to and read back by: BARON CEDILLO 70-100- Normal Fasting; 100-125 Impaired Fasting; greater than 126 on more than one result- Diabetes. ADA guidelines. Results may be falsely elevated after the administration of Sulfapyridine. Results may be falsely depressed after the administration of Sulfasalazine. Performed By: #### L 500.48677, L500.91195, L500.87816, L550.88777 #### [facility] [address] [place] [address] Anion gap [Moles/Vol] 9 mmol/L Normal 5-16 [facility] Comment on above: Performed By: #### L 500.58199, L500.57285, L500.66502, L550.23574 #### [facility] [address] [place] [address] Calcium [Mass/Vol] 8.4 mg/dL Low 8.5-10.5 [facility] Comment on above: Result Comment: NOTE NEW NORMAL RANGE DUE TO REAGENT CHANGE Performed By: #### L 500.03076, L500.38364, L500.98193, L550.18063 #### [facility] [address] [place], [place] [address] Chloride [Moles/Vol] 105 mmol/L Normal 98-107 [facility] Comment on above: Performed By: #### L 500.16133, L500.16073, L500.61355, L550.61032 #### [facility] [address] [place], [place] [address] CO2 [Moles/Vol] 21.0 mmol/L Normal 21-32 [facility] Comment on above: Performed By: #### L 500.89436, L500.36939, L500.50114, L550.29779 #### [facility] [address] [place] [address] Creatinine [Mass/Vol] 1.00 mg/dL High 0.510-0.950 [facility] Comment on above: Result Comment: Joanie ents receiving either N-Acetylcysteine (NAC) or Metamizole prior to venipuncture, may have falsely depressed results. Performed By: #### L 500.54631, L500.05129, L500.36607, L550.64858 #### [facility] [address] [place] [address] Potassium [Moles/Vol] 5.4 mmol/L High 3.5-5.1 [facility] Comment on above: Result Comment: Slig ht Hemolysis, Result may be affected. Performed By: #### L 500.24892, L500.23755, L500.95188, L550.02663 #### [facility] [address] [place] [address] Sodium [Moles/Vol] 135 mmol/L Low 136-145 [facility] Comment on above: Performed By: #### L 500.60599, L500.81682, L500.92259, L550.76489 #### [facility] [address] [place] [address] Urea nitrogen [Mass/Vol] 21 mg/dL Normal 7-26 [facility] Comment on above: Result Comment: Crit ical Result(s) Called at: 12:06:26 on 11/28/2021 by [facility]. Called to and read back by: BARON CEDILLO Performed By: #### L 500.99212, L500.30004, L500.13917, L550.35460 #### [facility] [place] [address] Urea nitrogen/Creatinine [Mass ratio] 21 mg/mg Normal 15-24 [facility] Comment on above: Performed By: #### L 500.52068, L500.03367, L500.09405, L550.98097 #### [facility] [address] [place] [address] CBCon 11-28-2021 Erythrocyte distribution width (RBC) [Ratio] 15.3 % High 11-14.5 [facility] Comment on above: Performed By: #### L 550.09181, L500.38645, L500.97652, L500.80017 #### [facility] [address] [place] [address] Hematocrit (Bld) [Volume fraction] 28.2 % Low 35.0-47.0 [facility] Comment on above: Performed By: #### L 550.54664, L500.32799, L500.56866, L500.25609 #### [facility] [address] [place] [address] Hemoglobin (Bld) [Mass/Vol] 8.9 g/dL Low 11.5-15.5 [facility] Comment on above: Performed By: #### L 550.41563, L500.22210, L500.57360, L500.05414 #### [facility] [address] [place] [address] MCHC (RBC) [Mass/Vol] 31.6 g/dL Low 32.0-36.0 [facility] Comment on above: Performed By: #### L 550.26021, L500.90763, L500.16253, L500.63835 #### [facility] [address] [place] [address] MCV (RBC) [Entitic vol] 95.9 fL Normal 80.0-99.0 [facility] Comment on above: Performed By: #### L 550.08176, L500.87172, L500.98040, L500.28165 #### [facility] [place] [address] Nucleated RBC/100 WBC (Bld) [Ratio] 0.0 % Normal Less than 1 [facility] Comment on above: Performed By: #### L 550.40633, L500.35190, L500.37444, L500.78002 #### [facility] [address] [place] [address] Platelet mean volume (Bld) [Entitic vol] 11.8 fL Normal 9.4-12.4 [facility] Comment on above: Performed By: #### L 550.55029, L500.87571, L500.14741, L500.72789 #### [facility] [address] [place] [address] PLT 334 K/CU MM Normal 150-450 [facility] Comment on above: Performed By: #### L 550.70490, L500.12858, L500.28646, L500.65898 #### [facility] [address] [place] [address] RBC 2.94 M/CU MM Low 3.90-5.30 [facility] Comment on above: Performed By: #### L 550.23819, L500.38481, L500.07955, L500.43952 #### [facility] [address] [place] [address] WBC 8.9 K/CUMM Normal 4.5-11.0 [facility] Comment on above: Performed By: #### L 550.42263, L500.21288, L500.10475, L500.33149 #### [facility] [address] [place] [address] CDIF PCRon 11-28-2021 CDIF PCR Negative Normal NEGATIVE [facility] Comment on above: Result Comment: This specimen is negative for the molecular prescence of the C.difficile Gene and warrants no further testing. It is recommended that no more than one stool specimen be tested for C.Difficile by PCR per week. Performed By: #### L 550.21145, L500.35388, L500.01750, L500.04170 #### [facility] [place] [address] CHOLon 11-28-2021 CHOL 141 MG/dL Normal 0-199 [facility] Comment on above: Performed By: #### L 500.11989, L500.69635, L500.55880, L550.88185 #### [facility] [address] [place] [address] GFR ESTon 11-28-2021 IF AMER Greater than 60 Normal [facility] Comment on above: Performed By: #### L 500.94436, L500.79981, L500.91821, L550.07134 #### [facility] [address] [place] [address] IF non-AFR AMER 55 Normal [facility] Comment on above: Performed By: #### L 500.04800, L500.21519, L500.32362, L550.95643 #### [facility] [address] [place] [address] LDHon 11-28-2021 LDH 182 U/L Normal 84-246 [facility] Comment on above: Performed By: #### L 500.66901, L500.49343, L500.52331, L550.58895 #### [facility] [address] [place] [address] PHOSon 11-28-2021 Phosphate [Mass/Vol] 6.00 mg/dL High 2.5-4.9 [facility] Comment on above: Result Comment: Slig ht Lipemia, Result may be affected. Elevated m-protein (paraprotein) levels in the serum may be exhibited in patients with monoclonal gammopathies, causing falsely elevated inorganic phosphorus results. Performed By: #### L 500.06739, L500.78520, L500.60642, L550.77446 #### [facility] [address] [place] [address] PREALBon 11-28-2021 PREALB 30 MG/DL Normal 20-40 [facility] Comment on above: Performed By: #### L 500.58031, L500.34995, L500.23718, L550.23560 #### [facility] [address] [place] [address] PTon 11-28-2021 INR Coag (PPP) [Relative time] 1.01 {INR} Normal 0.9-1.1 [facility] Comment on above: Result Comment: Az mmended PT INR therapeutic range for termite treater and prophylactic therapy is 2.0 - 3.0. For heart valve and shunt patients the range is 2.5 - 3.5. Performed By: #### L 300.28920 #### [facility] [address] [place] [address] PTS 11.0 SECONDS Normal 9.5-12.0 [facility] Comment on above: Performed By: #### L 300.04572 #### [facility] [address] [place] [address] SGOT (AST)on 11-28-2021 AST [Catalytic activity/Vol] 50 U/L High 8-34 [facility] Comment on above: Result Comment: RESU LTS MAY BE FALSELY DEPRESSED AFTER THE ADMINISTRATION OF SULFASALAZINE AND/OR SULFAPYRIDINE. Performed By: #### L 500.72696, L500.01345, L500.54177, L550.75179 #### [facility] [address] [place] [address] SGPT (ALT)on 11-28-2021 ALT [Catalytic activity/Vol] 48 U/L Normal 13-61 [facility] Comment on above: Result Comment: RESU LTS MAY BE FALSELY DEPRESSED AFTER THE ADMINISTRATION OF SULFASALAZINE AND/OR SULFAPYRIDINE. Performed By: #### L 500.93641, L500.98153, L500.28336, L550.20976 #### [facility] [place] [address] TPon 11-28-2021 Protein [Mass/Vol] 5.3 g/dL Low 6.0-8.5 [facility] Comment on above: Performed By: #### L 500.32214, L500.99025, L500.48258, L550.71342 #### [facility] [address] [place] [address] TRIGon 11-28-2021 Triglyceride [Mass/Vol] 448 mg/dL High 30-149 [facility] Comment on above: Result Comment: Joanie ents receiving either N-Acetylcysteine (NAC) or Metamizole prior to venipuncture, may have falsely depressed results. Performed By: #### L 500.30340, L500.15539, L500.68045, L550.65511 #### [facility] [address] [place] [address] BMPon 11-25-2021 Anion gap [Moles/Vol] 12 mmol/L Normal 5-16 [facility] Comment on above: Performed By: #### L 200.17103 #### [facility] [place] [address] Calcium [Mass/Vol] 8.8 mg/dL Normal 8.5-10.5 [facility] Comment on above: Result Comment: NOTE NEW NORMAL RANGE DUE TO REAGENT CHANGE Performed By: #### L 200.53915 #### [facility] [address] [place] [address] Chloride [Moles/Vol] 108 mmol/L High 98-107 [facility] Comment on above: Performed By: #### L 200.85178 #### [facility] [address] [place] [address] CO2 [Moles/Vol] 22.0 mmol/L Normal 21-32 [facility] Comment on above: Performed By: #### L 200.49227 #### [facility] [place] [address] Creatinine [Mass/Vol] 1.06 mg/dL High 0.510-0.950 [facility] Comment on above: Result Comment: Joanie ents receiving either N-Acetylcysteine (NAC) or Metamizole prior to venipuncture, may have falsely depressed results. Performed By: #### L 200.25983 #### [facility] [address] [place] [address] Glucose [Mass/Vol] 124 mg/dL High 70-100 [facility] Comment on above: Result Comment: 70-1 00- Normal Fasting; 100-125 Impaired Fasting; greater than 126 on more than one result- Diabetes. ADA guidelines. Results may be falsely elevated after the administration of Sulfapyridine. Results may be falsely depressed after the administration of Sulfasalazine. Performed By: #### L 200.26741 #### [facility] [place] [address] Potassium [Moles/Vol] 4.2 mmol/L Normal 3.5-5.1 [facility] Comment on above: Result Comment: Slig ht Hemolysis, Result may be affected. Performed By: #### L 200.60080 #### [facility] [address] [place] [address] Sodium [Moles/Vol] 142 mmol/L Normal 136-145 [facility] Comment on above: Performed By: #### L 200.42188 #### [facility] [place] [address] Urea nitrogen [Mass/Vol] 19 mg/dL Normal 7-26 [facility] [facility] Comment on above: Performed By: #### L 200.68620 #### [facility] [address] [place] [address] Urea nitrogen/Creatinine [Mass ratio] 18 mg/mg Normal 15-24 [facility] Comment on above: Performed By: #### L 200.65208 #### [facility] [address] [place] [address] CBCon 11-25-2021 Erythrocyte distribution width (RBC) [Ratio] 15.0 % High 11-14.5 [facility] Comment on above: Performed By: #### L 500.16323, L500.54977, L500.60891, L550.63076 #### [facility] [address] [place] [address]# [phone] Hematocrit (Bld) [Volume fraction] 30.9 % Low 35.0-47.0 [facility] Comment on above: Performed By: #### L 500.83678, L500.88055, L500.75014, L550.50250 #### [facility] [address] [place] [address] Hemoglobin (Bld) [Mass/Vol] 9.6 g/dL Low 11.5-15.5 [facility] Comment on above: Performed By: #### L 500.73861, L500.01426, L500.77443, L550.92443 #### [facility] [address] [place] [address] MCHC (RBC) [Mass/Vol] 31.1 g/dL Low 32.0-36.0 [facility] Comment on above: Performed By: #### L 500.62780, L500.41196, L500.67154, L550.86101 #### [facility] [address] [place] [address] MCV (RBC) [Entitic vol] 93.1 fL Normal 80.0-99.0 [facility] Comment on above: Performed By: #### L 500.50830, L500.37056, L500.89293, L550.88797 #### [facility] [address] [place] [address] Nucleated RBC/100 WBC (Bld) [Ratio] 0.0 % Normal Less than 1 [facility] Comment on above: Performed By: #### L 500.42559, L500.45100, L500.14793, L550.20221 #### [facility] [address] [place] [address] Platelet mean volume (Bld) [Entitic vol] 11.0 fL Normal 9.4-12.4 [facility] Comment on above: Performed By: #### L 500.43417, L500.56713, L500.61359, L550.53825 #### [facility] [address] [place] [address] PLT 433 K/CU MM Normal 150-450 [facility] Comment on above: Performed By: #### L 500.76756, L500.06844, L500.03419, L550.52750 #### [facility] [address] [place] [address] RBC 3.32 M/CU MM Low 3.90-5.30 [facility] Comment on above: Performed By: #### L 500.11492, L500.57485, L500.06864, L550.15858 #### [facility] [address] [place] [address] WBC 10.4 K/CUMM Normal 4.5-11.0 [facility] Comment on above: Performed By: #### L 500.00897, L500.43870, L500.68018, L550.74698 #### [facility] [place] [address] GFR ESTon 11-25-2021 IF AMER Greater than 60 Normal [facility] Comment on above: Performed By: #### L 200.39568 #### [facility] [address] [place] [address] IF non-AFR AMER 51 Normal [facility] Comment on above: Performed By: #### L 200.34388 #### [facility] [address] [place] [address] MAGNESIUMon 11-25-2021 Magnesium [Mass/Vol] 2.0 mg/dL Normal 1.6-2.6 [facility] Comment on above: Performed By: #### L 200.14601 #### [facility] [address] [place] [address] PREALBon 11-25-2021 PREALB 27 MG/DL Normal 20-40 [facility] Comment on above: Performed By: #### L 200.23940 #### [facility] [address] [place] [address] PTon 11-25-2021 INR Coag (PPP) [Relative time] 0.98 {INR} Normal 0.9-1.1 [facility] Comment on above: Result Comment: Az mmended PT INR therapeutic range for snf and prophylactic therapy is 2.0 - 3.0. For heart valve and shunt patients the range is 2.5 - 3.5. Performed By: #### L 550.89265, L500.23846, L500.10559, L500.02611 #### [facility] [address] [place] [address] PTS 10.7 SECONDS Normal 9.5-12.0 [facility] Comment on above: Performed By: #### L 550.06679, L500.78578, L500.88444, L500.64553 #### [facility] [address] [place] [address]# [phone] Ab 11-15-2021 LYDIA Telephone (AGDOVER) -- BRIEADINA HORTON I ([id number]) 1950 F Date Time Provider Department 11/15/21 SERGIO GOLDMAN, KENTRELL NAQVI During your visit today, we recorded the following information about you: Josep Drew MA 11/15/2021 9:33 AM Signed TRANSITIONAL CARE MANAGEMENT (TCM) COMMUNITY MONITORING PROGRAM - WITT Provider Action/FYI: Dr. Kentrell Dhaliwal II SUMMARY: Pt discharged from [facility] on 10/19/2021. Admitted for: Small Bowel Obstruction Contact made with patient: Yes Hi my name is Josep Drew [facility] and I am calling from the [facility] on behalf of your PCP, Kentrell [...] like to speak with a social work steamboat captain to help give you support for any [...] I will send your request to a air box tester who will contact and assist you with [...] Diarrhea PREDNISONE 08/30/2021 8 - GI Upset MZDZDAE-NZE-MXE REDUCTASE INHIBIT*06/22/2020 6 - Diarrhea SULFA (SULFONAMIDE ANTIBIOTICS) 06/15/2020 14 - Other: See Comments Comments: Leg pain Date Reviewed: 08/30/2021 Reviewed by: Kentrell Dhaliwal II, MD - Fully Assessed 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 Normal [facility] CNPNon 09-22-2021 CNPN Telephone (DONYA) -- ADINA ESCOBAR I ([id number]) 1950 F Date Time Provider Department 09/22/21 SERGIO GOLDMAN, KENTRELL NAQVI During your visit today, we recorded the following information about you: Denita Martha GONZALEZ 09/22/2021 10:39 AM Signed Patient called in [...] Diarrhea PREDNISONE 08/30/2021 8 - GI Upset CDBQDKZ-OKA-YNP REDUCTASE INHIBIT*06/22/2020 6 - Diarrhea SULFA (SULFONAMIDE [...] Status:Closed by KENTRELL DHALIWAL II on 09/22/21 [facility] Ab 09-14-2021 JASON Telephone (DONYA) -- ADINA ESCOBAR I ([id number]) 1950 F Date Time Provider Department 09/14/21 KENTRELL DHALIWAL II During your visit today, we recorded the following information about you: Josep Drew MA 09/14/2021 9:52 AM Signed Patient [...] Diarrhea PREDNISONE 08/30/2021 8 - GI Upset BSKCLRX-FAK-GDZ REDUCTASE INHIBIT*06/22/2020 6 - Diarrhea SULFA (SULFONAMIDE [...] BY MOUTH TWICE DAILY Encounter Status:Closed by JOSEP DREW on 09/15/21 [facility] CNPTawana 09-06-2021 CNPN Telephone (DONYA) -- ADINA ESCOBAR I ([id number]) 1950 F Date Time Provider Department 09/06/21 [...] an update I sent 10 days to Jyothi Thomas MA 09/07/2021 3:02 PM Signed Left [...] Diarrhea PREDNISONE 08/30/2021 8 - GI Upset BOKJHTU-ZXP-YGI REDUCTASE INHIBIT*06/22/2020 6 - Diarrhea SULFA (SULFONAMIDE [...] Status:Closed by DENITA THOMAS MA on [facility]07[facility] Office Visit (MELISSA R) -- ADINA ESCOBAR I ([id number]) 1950 F Date Time Provider Department 08/30/21 [...] 10:33 PM Signed Kentrell Dhaliwal II, MD [address], [place] [address] SUBJECTIVE Adina Escobar is a 71 year old female [...] [Cefdinir] Diarrhea - Prednisone GI Upset - Mcfdhlx-Tjh-Ehh Red* Diarrhea - Sulfa (Sulfonamide * Other: See Comments Leg pain Current Outpatient Medications Medication Sig - levothyroxine (SYNTHROID) 50 mcg tablet Take 1 tablet by mouth once daily. - buPROPion XL (WELLBUTRIN XL) 150 mg 24 hr tablet Take 2 tablets by mouth once daily. - ALPRAZolam (XANAX) 1 mg tablet TAKE 1 T (more content not included)... [facility] Ab 08-25-2021 LYDIA Telephone (ArchsyDOVER) -- ADINA ESCOBAR ([id number]) 1950 F Date Time Provider Department 08/25/21 SERGIO GOLDMAN, KENTRELL NAQVI During your visit today, we recorded the following information about you: Josep Drew MA 08/25/2021 10:35 AM Signed .opened in error Josep Drew MA Allergies As of Date: 08/25/2021 Noted Allergy Reaction DILAUDID (HYDROMORPHONE) 06/22/2020 12 - Shortness of Breath Comments: quit breathing LATEX 06/22/2020 10 - Anaphylaxis CODEINE 06/22/2020 6 - Diarrhea COMPAZINE (PROCHLORPERAZINE) 06/22/2020 17 - Myalgia LEVAQUIN (LEVOFLOXACIN) 06/22/2020 6 - Diarrhea OMNICEF (CEFDINIR) 06/22/2020 6 - Diarrhea WSMTYRY-BSJ-MJG REDUCTASE INHIBIT*06/22/2020 6 - Diarrhea SULFA (SULFONAMIDE [...] and depression [F41.9, F32.A] Encounter Status:Closed by JOSEP DREW on 08/25/21 [facility] OBSOLETEon 08-15-2021 OBSOLETE Refill (AGDOVER) -- ADINA ESCOBAR ([id number]) 1950 F Date Time Provider Department 08/15/21 SERGIO GOLDMAN, KENTRELL NAQVI During your visit today, [...] [Levofloxa* Diarrhea - Omnicef [Cefdinir] Diarrhea - Wsmqvkc-Ouz-Rzg Red* Diarrhea - Sulfa (Sulfonamide * Other: See Comments Leg pain (home) [phone] (cell) Last Office Visit Date: 05/24/2021 Last [facility] Visit: Visit date not [...] Diarrhea OMNICEF (CEFDINIR) 06/22/2020 6 - Diarrhea QLZVZPW-BFM-SKH REDUCTASE INHIBIT*06/22/2020 6 - Diarrhea SULFA (SULFONAMIDE [...] Status:Closed by KENTRELL DHALIWAL II on 08/16/21 [facility] OBSOLETEon 07-14-2021 OBSOLETE Refill (AGDOVER) -- ADINA ESCOBAR ([id number]) 1950 F Date Time Provider Department 07/14/21 [...] [Levofloxa* Diarrhea - Omnicef [Cefdinir] Diarrhea - Qxuujlh-Trn-Dcc Red* Diarrhea - Sulfa (Sulfonamide * Other: See Comments Leg pain (home) [phone] (cell) Last Office Visit Date: 05/24/2021 Last [facility] Visit: Visit date not found Future [...] Diarrhea OMNICEF (CEFDINIR) 06/22/2020 6 - Diarrhea SIZXTMS-BOM-XPH REDUCTASE INHIBIT*06/22/2020 6 - Diarrhea SULFA (SULFONAMIDE [...] Status:Closed by KENTRELL DHALIWAL II on 07/14/21 [facility] OBSOLETEon 07-04-2021 OBSOLETE Refill (AGDOVER) -- BRIEADINA ([id number]) 1950 F Date Time Provider Department 07/04/21 [...] [Levofloxa* Diarrhea - Omnicef [Cefdinir] Diarrhea - Byfdbgr-Slr-Nhc Red* Diarrhea - Sulfa (Sulfonamide * Other: See Comments Leg pain (home) [phone] (cell) Last Office Visit Date: 05/24/2021 Last [facility] Visit: Visit date not found Future [...] Diarrhea OMNICEF (CEFDINIR) 06/22/2020 6 - Diarrhea APFPLIZ-GSL-CSS REDUCTASE INHIBIT*06/22/2020 6 - Diarrhea SULFA (SULFONAMIDE [...] Status:Closed by KENTRELL DHALIWAL II on 07/04/21 [facility] Ab 06-27-2021 LYDIA Telephone (ArchsyDOVER) -- ADINA ESCOBAR ([id number]) 1950 F Date Time Provider Department 06/27/21 KENTRELL DHALIWAL II During your visit today, we recorded the following information about you: Josep Drew MA 06/27/2021 9:56 AM Signed Patient [...] nausea Immodium OTC for diarrhea Denita Thomas MA 06/27/2021 2:02 PM Signed Patient has been informed via voicemail. Denita Thomas MA Allergies As of Date: 06/27/2021 Noted Allergy Reaction DILAUDID (HYDROMORPHONE) 06/22/2020 12 - Shortness of Breath Comments: quit breathing LATEX 06/22/2020 10 - Anaphylaxis CODEINE 06/22/2020 6 - Diarrhea COMPAZINE (PROCHLORPERAZINE) 06/22/2020 17 - Myalgia LEVAQUIN (LEVOFLOXACIN) 06/22/2020 6 - Diarrhea OMNICEF (CEFDINIR) 06/22/2020 6 - Diarrhea FOKKMSA-YOZ-LMK REDUCTASE INHIBIT*06/22/2020 6 - Diarrhea SULFA (SULFONAMIDE ANTIBIOTICS) 06/15/2020 14 - Other: See Comments Comments: Leg pain Date Reviewed: 05/24/2021 Reviewed by: Kentrell Dhaliwal II, MD - Fully Assessed Reason for Visit: Patient Question [1479] Order(s):ondansetron (ZOFRAN) 8 mg tabletTake 1 tablet [...] Status:Closed by DENITA THOMAS MA on 06/27/21 [facility] OBSOLETEon 06-15-2021 OBSOLETE Refill (AGDOVER) -- ADINA ESCOBAR ([id number]) 1950 F Date Time Provider Department 06/15/21 [...] [Levofloxa* Diarrhea - Omnicef [Cefdinir] Diarrhea - Gkueeog-Rfp-Pjt Red* Diarrhea - Sulfa (Sulfonamide * Other: See Comments Leg pain (home) [phone] (cell) Last Office Visit Date: 05/24/2021 Last [facility] Visit: Visit date not found Future [...] Diarrhea OMNICEF (CEFDINIR) 06/22/2020 6 - Diarrhea YUDYZOM-HYZ-YFN REDUCTASE INHIBIT*06/22/2020 6 - Diarrhea SULFA (SULFONAMIDE [...] Status:Closed by KENTRELL DHALIWAL II [facility] ADINA ESCOBAR ([id number]) 1950 F Date Time Provider Department 05/30/21 KENTRELL DHALIWAL II During your visit today, we recorded the following information about you: Josep Drew MA 05/30/2021 1:10 PM Signed Patient [...] with food and use Zofran as needed Josep Drew MA 05/30/2021 2:45 PM Signed Called to inform patient of Dr. Dhaliwal message. Patient states understanding and will call our office with any further questions or concerns. Josep Drew MA Allergies As of Date: 05/30/2021 Noted Allergy Reaction DILAUDID (HYDROMORPHONE) 06/22/2020 12 - Shortness of Breath Comments: quit breathing LATEX 06/22/2020 10 - Anaphylaxis CODEINE 06/22/2020 6 - Diarrhea COMPAZINE (PROCHLORPERAZINE) 06/22/2020 17 - Myalgia LEVAQUIN (LEVOFLOXACIN) 06/22/2020 6 - Diarrhea OMNICEF (CEFDINIR) 06/22/2020 6 - Diarrhea JCFLNXM-XFF-THQ REDUCTASE INHIBIT*06/22/2020 6 - Diarrhea SULFA (SULFONAMIDE ANTIBIOTICS) 06/15/2020 14 - Other: See Comments Comments: Leg pain Date Reviewed: 05/24/2021 Reviewed by: Kentrell Dhaliwal II, MD - Fully Assessed Reason for Visit: Patient Question [1477] Order(s):ondansetron orally disintegrating (ZOFRAN ODT) 8 mg [...] as needed for nausea/vomiting. Encounter Status:Closed by JOSEP DREW on 05/30/21 [facility] CNElmo 05-24-2021 CNOV Office Visit (AGDOVE R) -- ADINA ESCOBAR I ([id number]) 1950 F Date Time Provider Department 05/24/21 [...] your testing is not done at a [facility] facility please provide this office with the results of your testing. Kentrell Dhaliwal II, MD 05/24/2021 8:15 PM Signed Kentrell Dhaliwal II, MD [address], [address] [place] [id number] NOEMI Escobar is a 70 year old [...] [Levofloxa* Diarrhea - Omnicef [Cefdinir] Diarrhea - Pwprgjd-Wuz-Qnd Red* Diarrhea - Sulfa (Sulfonamide * Other: See Comments Leg pain Current Outpatient Medications Medication Sig - gabapentin (NEURONTIN) 300 mg capsule Take 300 mg by mouth three times daily. - escitalopram oxalate (LEXAPRO) 20 mg tablet Take (more content not included)... Normal [facility] OBSOLETEon 05-15-2021 OBSOLETE Refill (AGDOVER) -- ADINA ESCOBAR I ([id number]) 1950 F Date Time Provider Department 05/15/21 SERGIO GOLDMAN, KENTRELL NAQVI During your visit today, we recorded the following information about you: Josep Drew MA 05/16/2021 8:44 AM Signed Opened in error Josep Drew MA 05/16/2021 11:10 AM Signed Pharmacy [...] [Levofloxa* Diarrhea - Omnicef [Cefdinir] Diarrhea - Ckgboqv-Dya-Gtz Red* Diarrhea - Sulfa (Sulfonamide * Other: See Comments Leg pain (home) [phone] (cell) Last Office Visit Date: 02/16/2021 Last [facility] Visit: Visit date not found Future Appointment: 05/24/2021 The patients preferred pharmacy has been captured for this encounter? yes Request is for script(s) to be escript to pharmacy. Josep Drew MA Allergies As of Date: 05/15/2021 Noted Allergy Reaction DILAUDID (HYDROMORPHONE) 06/22/2020 12 - Shortness of Breath Comments: quit breathing LATEX 06/22/2020 10 - Anaphylaxis CODEINE 06/22/2020 6 - Diarrhea COMPAZINE (PROCHLORPERAZINE) 06/22/2020 17 - Myalgia LEVAQUIN (LEVOFLOXACIN) 06/22/2020 6 - Diarrhea OMNICEF (CEFDINIR) 06/22/2020 6 - Diarrhea EXGQNFA-NPP-VLV REDUCTASE INHIBIT*06/22/2020 6 - Diarrhea SULFA (SULFONAMIDE [...] Status:Closed by KENTRELL DHALIWAL II on 05/16/21 [facility] OBSOLETEon 04-18-2021 OBSOLETE Refill (AGDOVER) -- ADINA ESCOBAR I ([id number]) 1950 F Date Time Provider Department 04/18/21 KENTRELL DHALIWAL II During your visit today, we recorded the following information about you: Josep Drew MA 04/18/2021 10:40 AM Signed refill [...] [Levofloxa* Diarrhea - Omnicef [Cefdinir] Diarrhea - Ipuuxzq-Iiq-Pri Red* Diarrhea - Sulfa (Sulfonamide * Other: See Comments Leg pain (home) [phone] (cell) Last Office Visit Date: 02/16/2021 Last [facility] Visit: Visit date not found Future [...] [Levofloxa* Diarrhea - Omnicef [Cefdinir] Diarrhea - Lcvtdbo-Vrc-Mgt Red* Diarrhea - Sulfa (Sulfonamide * Other: See Comments Leg pain (home) [phone] (cell) Last Office Visit Date: 02/16/2021 Last [facility] Visit: Visit date not found Future Appointment: 05/19/2021 The patients preferred pharmacy has been captured for this encounter? yes Request is for script(s) to be escript to pharmacy. Josep Drew MA Allergies As of Date: 04/18/2021 Noted Allergy Reaction DILAUDID (HYDROMORPHONE) 06/22/2020 12 - Shortness of Breath Comments: quit breathing LATEX 06/22/2020 10 - Anaphylaxis CODEINE 06/22/2020 6 - Diarrhea COMPAZINE (PROCHLORPERAZINE) 06/22/2020 17 - Myalgia LEVAQUIN (LEVOFLOXACIN) 06/22/2020 6 - Diarrhea OMNICEF (CEFDINIR) 06/22/2020 6 - Diarrhea BHNGPWW-GPJ-JNU REDUCTASE INHIBIT*06/22/2020 6 - Diarrhea SULFA (SULFONAMIDE [...] DAILY Encounte (more content not included)... Normal [facility] OBSOLETEon 03-16-2021 OBSOLETE Refill (AGDOVER) -- ADINA ESCOBAR I ([id number]) 1950 F Date Time Provider Department 03/16/21 KENTRELL DHALIWAL II During your visit today, we recorded the following information about you: Josep Drew MA 03/16/2021 11:48 AM Signed Pharmacy [...] [Levofloxa* Diarrhea - Omnicef [Cefdinir] Diarrhea - Nkwndhj-Oxu-Xhr Red* Diarrhea - Sulfa (Sulfonamide * Other: See Comments Leg pain (home) [phone] (cell) Last Office Visit Date: 02/16/2021 Last [facility] Visit: Visit date not found Future Appointment: 05/19/2021 The patients preferred pharmacy has been captured for this encounter? yes Request is for script(s) to be escript to pharmacy. Josep Drew MA refill Allergies As of Date: 03/16/2021 Noted Allergy Reaction DILAUDID (HYDROMORPHONE) 06/22/2020 12 - Shortness of Breath Comments: quit breathing LATEX 06/22/2020 10 - Anaphylaxis CODEINE 06/22/2020 6 - Diarrhea COMPAZINE (PROCHLORPERAZINE) 06/22/2020 17 - Myalgia LEVAQUIN (LEVOFLOXACIN) 06/22/2020 6 - Diarrhea OMNICEF (CEFDINIR) 06/22/2020 6 - Diarrhea RMYWLNA-YOI-XYO REDUCTASE INHIBIT*06/22/2020 6 - Diarrhea SULFA (SULFONAMIDE [...] bowel syndrome with both constipation*06/22/2020 Subclinical hypothyroidism [E03.9] 06/22/2020 History of DVT [...] Status:Closed by KENTRELL DHALIWAL II on 03/17/21 [facility] SURGICAL PATHOLOGY, CONVERTE Don 03-03-2005 [facility] Vital Signs Date Time Vital Sign Value Performing Clinician Facility 03-05-2025 13:11-0400 Body height 154.9 cm Kentrell Dhaliwal II, MD Work Phone: [facility] 03-05-2025 13:11-0400 Body mass index (BMI) [Ratio] 27.21 kg/m2 Kentrell Dhaliwal II, MD Work Phone: [facility] 03-05-2025 13:11-0400 Body temperature 97.5 [degF] Kentrell Dhaliwal II, MD Work Phone: [facility] 03-05-2025 13:11-0400 Body weight 65.32 kg Kentrell Dhaliwal II, MD Work Phone: [facility] 03-05-2025 13:11-0400 Diastolic blood pressure 70 mm[Hg] Kentrell Dhaliwal II, MD Work Phone: [facility] 03-05-2025 13:11-0400 Heart rate 72 /min Kentrell Dhaliwal II, MD Work Phone: [facility] 03-05-2025 13:11-0400 Respiratory rate 14 /min Kentrell Dhaliwal II, MD Work Phone: [facility] 03-05-2025 13:11-0400 SaO2% (BldA) [Mass fraction] 94 % Kentrell Dhaliwal II, MD Work Phone: [facility] 03-05-2025 13:11-0400 Systolic blood pressure 122 mm[Hg] Kentrell Dhaliwal II, MD Work Phone: [facility] 09-26-2024 14:07-0500 Body height 154.9 cm Kentrell Dhaliwal II, MD Work Phone: [facility] 09-26-2024 14:07-0500 Body mass index (BMI) [Ratio] 26.38 kg/m2 Kentrell Dhaliwal II, MD Work Phone: [facility] 09-26-2024 14:07-0500 Body temperature 98.71 [degF] Kentrell Dhaliwal II, MD Work Phone: [facility] 09-26-2024 14:07-0500 Body weight 63.32 kg Kentrell Dhaliwal II, MD Work Phone: [facility] 09-26-2024 14:07-0500 Diastolic blood pressure 82 mm[Hg] Kentrell Dhaliwal II, MD Work Phone: [facility] 09-26-2024 14:07-0500 Heart rate 81 /min Kentrell Dhaliwal II, MD Work Phone: [facility] 09-26-2024 14:07-0500 Respiratory rate 24 /min Kentrell Dhaliwal II, MD Work Phone: [facility] 09-26-2024 14:07-0500 SaO2% (BldA) [Mass fraction] 100 % Kentrell Dhaliwal II, MD Work Phone: [facility] 09-26-2024 14:07-0500 Systolic blood pressure 126 mm[Hg] Kentrell Dhaliwal II, MD Work Phone: [facility] 09-03-2024 16:10-0500 Diastolic blood pressure 80 mm[Hg] Kentrell Dhaliwal II, MD Work Phone: [facility] 09-03-2024 16:10-0500 Systolic blood pressure 150 mm[Hg] Kentrell Dhaliwal II, MD Work Phone: [facility] 09-03-2024 16:01-0500 Body height 154.9 cm Kentrell Dhaliwal II, MD Work Phone: [facility] 09-03-2024 16:01-0500 Body mass index (BMI) [Ratio] 29.1 kg/m2 Kentrell Dhaliwal II, MD Work Phone: [facility] 09-03-2024 16:01-0500 Body weight 69.85 kg Kentrell Dhaliwal II, MD Work Phone: [facility] 09-03-2024 16:01-0500 Heart rate 83 /min Kentrell Dhaliwal II, MD Work Phone: [facility] 09-03-2024 16:01-0500 SaO2% (BldA) [Mass fraction] 97 % Kentrell Dhaliwal II, MD Work Phone: [facility] 07-04-2024 14:59-0400 Body height 154.9 cm Kentrell Dhaliwal II, MD Work Phone: [facility] 07-04-2024 14:59-0400 Body mass index (BMI) [Ratio] 25.17 kg/m2 Kentrell Dhaliwal II, MD Work Phone: [facility] 07-04-2024 14:59-0400 Body temperature 97.3 [degF] Kentrell Dhaliwal II, MD Work Phone: [facility] 07-04-2024 14:59-0400 Body weight 60.42 kg Kentrell Dhaliwal II, MD Work Phone: [facility] 07-04-2024 14:59-0400 Diastolic blood pressure 72 mm[Hg] Kentrell Dhaliwal II, MD Work Phone: [facility] 07-04-2024 14:59-0400 Heart rate 66 /min Kentrell Dhaliwal II, MD Work Phone: [facility] 07-04-2024 14:59-0400 Respiratory rate 16 /min Kentrell Dhaliwal II, MD Work Phone: [facility] 07-04-2024 14:59-0400 SaO2% (BldA) [Mass fraction] 99 % Kentrell Dhaliwal II, MD Work Phone: [facility] 07-04-2024 14:59-0400 Systolic blood pressure 138 mm[Hg] Kentrell Dhaliwal II, MD Work Phone: [facility] 06-11-2024 09:52-0400 Body height 154.9 cm Kentrell Dhaliwal II, MD Work Phone: [facility] 06-11-2024 09:52-0400 Body mass index (BMI) [Ratio] 24.07 kg/m2 Kentrell Dhaliwal II, MD Work Phone: [facility] 06-11-2024 09:52-0400 Body temperature 97.3 [degF] Kentrell Dhaliwal II, MD Work Phone: [facility] 06-11-2024 09:52-0400 Body weight 57.79 kg Kentrell Dhaliwal II, MD Work Phone: [facility] 06-11-2024 09:52-0400 Diastolic blood pressure 80 mm[Hg] Kentrell Dhaliwal II, MD Work Phone: [facility] 06-11-2024 09:52-0400 Heart rate 90 /min Kentrell Dhaliwal II, MD Work Phone: [facility] 06-11-2024 09:52-0400 SaO2% (BldA) [Mass fraction] 99 % Kentrell Dhaliwal II, MD Work Phone: [facility] 06-11-2024 09:52-0400 Systolic blood pressure 158 mm[Hg] Kentrell Dhaliwal II, MD Work Phone: [facility] 01-02-2024 15:09-0400 Body height 154.9 cm Kentrell Dhaliwal II, MD Work Phone: [facility] 01-02-2024 15:09-0400 Body mass index (BMI) [Ratio] 22.11 kg/m2 Kentrell Dhaliwal II, MD Work Phone: [facility] 01-02-2024 15:09-0400 Body temperature 98.2 [degF] Kentrell Dhaliwal II, MD Work Phone: [facility] 01-02-2024 15:09-0400 Body weight 53.07 kg Kentrell Dhaliwal II, MD Work Phone: [facility] 01-02-2024 15:09-0400 Diastolic blood pressure 64 mm[Hg] Kentrell Dhaliwal II, MD Work Phone: [facility] 01-02-2024 15:09-0400 Heart rate 77 /min Kentrell Dhaliwal II, MD Work Phone: [facility] 01-02-2024 15:09-0400 Respiratory rate 12 /min Kentrell Dhaliwal II, MD Work Phone: [facility] 01-02-2024 15:09-0400 SaO2% (BldA) [Mass fraction] 100 % Kentrell Dhaliwal II, MD Work Phone: [facility] 01-02-2024 15:09-0400 Systolic blood pressure 118 mm[Hg] Kentrell Dhaliwal II, MD Work Phone: [facility] 12-13-2023 13:34-0400 Body temperature 97.2 [degF] Dr. Kentrell Dhaliwal Work Phone: [facility] 12-13-2023 13:34-0400 Diastolic blood pressure 73 mm[Hg] Dr. Kentrell Dhaliwal Work Phone: [facility] 12-13-2023 13:34-0400 Heart rate 62 /min Dr. Kentrell Dhaliwal Work Phone: [facility] 12-13-2023 13:34-0400 Respiratory rate 14 /min Dr. Kentrell Dhaliwal Work Phone: [facility] 12-13-2023 13:34-0400 SaO2% (BldA) [Mass fraction] 100 % Dr. Kentrell Dhaliwal Work Phone: [facility] 12-13-2023 13:34-0400 Systolic blood pressure 129 mm[Hg] Dr. Kentrell Dhaliwal Work Phone: [facility] 12-13-2023 10:19-0400 Body height 154.[address] Kentrell Dhaliwal Work Phone: [facility] 12-13-2023 10:19-0400 Body mass index (BMI) [Ratio] 24 kg/m2 Dr. Kentrell Dhaliwal Work Phone: [facility] 12-13-2023 10:19-0400 Body weight 57.[address] Kentrell Dhaliwal Work Phone: [facility] 12-11-2023 11:32-0400 Body temperature 98.1 [degF] Dr. Kentrell Dhaliwal Work Phone: [facility] 12-11-2023 11:32-0400 Diastolic blood pressure 79 mm[Hg] Dr. Kentrell Dhaliwal Work Phone: [facility] 12-11-2023 11:32-0400 Heart rate 73 /min Dr. Kentrell Dhaliwal Work Phone: [facility] 12-11-2023 11:32-0400 Respiratory rate 16 /min Dr. Kentrell Dhaliwal Work Phone: [facility] 12-11-2023 11:32-0400 SaO2% (BldA) [Mass fraction] 98 % Dr. Kentrell Dhaliwal Work Phone: [facility] 12-11-2023 11:32-0400 Systolic blood pressure 130 mm[Hg] Dr. Kentrell Dhaliwal Work Phone: [facility] 12-11-2023 11:19-0400 Body height 154.[address] Kentrell Dhaliwal Work Phone: [facility] 12-11-2023 11:19-0400 Body weight 54.[address] Kentrell Dhaliwal Work Phone: [facility] 12-11-2023 02:23-0400 Body mass index (BMI) [Ratio] 22.6 kg/m2 Dr. Kentrell Dhaliwal Work Phone: [facility] 12-07-2023 00:40-0400 Body temperature 97.9 [degF] Dr. Kentrell Dhaliwal Work Phone: [facility] 12-07-2023 00:40-0400 Diastolic blood pressure 90 mm[Hg] Dr. Kentrell Dhaliwal Work Phone: [facility] 12-07-2023 00:40-0400 Heart rate 86 /min Dr. Kentrell Dhaliwal Work Phone: [facility] 12-07-2023 00:40-0400 Respiratory rate 26 /min Dr. Kentrell Dhaliwal Work Phone: [facility] 12-07-2023 00:40-0400 SaO2% (BldA) [Mass fraction] 100 % Dr. Kentrell Dhaliwal Work Phone: [facility] 12-07-2023 00:40-0400 Systolic blood pressure 149 mm[Hg] Dr. Kentrell Dhaliwal Work Phone: [facility] 12-06-2023 15:33-0400 Body height 154.[address] Kentrell Dhaliwal Work Phone: [facility] 12-06-2023 15:33-0400 Body mass index (BMI) [Ratio] 22.1 kg/m2 Dr. Kentrell Dhaliwal Work Phone: [facility] 12-06-2023 15:33-0400 Body weight 53.[address] Kentrell Dhaliwal Work Phone: [facility] 07-24-2023 14:06-0500 Body height 154.9 cm Kentrell Dhaliwal II, MD Work Phone: [facility] 07-24-2023 14:06-0500 Body temperature 97.5 [degF] Kentrell Dhaliwal II, MD Work Phone: [facility] 07-24-2023 14:06-0500 Body weight 54.43 kg Kentrell Dhaliwal II, MD Work Phone: [facility] 07-24-2023 14:06-0500 Diastolic blood pressure 76 mm[Hg] Kentrell Dhaliwal II, MD Work Phone: [facility] 07-24-2023 14:06-0500 Heart rate 80 /min Kentrell Dhaliwal II, MD Work Phone: [facility] 07-24-2023 14:06-0500 Respiratory rate 16 /min Kentrell Dhaliwal II, MD Work Phone: [facility] 07-24-2023 14:06-0500 SaO2% (BldA) [Mass fraction] 98 % Kentrell Dhaliwal II, MD Work Phone: [facility] 07-24-2023 14:06-0500 Systolic blood pressure 114 mm[Hg] Kentrell Dhaliwal II, MD Work Phone: [facility] 04-18-2023 14:38-0400 Body height 154.9 cm Kentrell Dhaliwal II, MD Work Phone: [facility] 04-18-2023 14:38-0400 Body temperature 97 [degF] Kentrell Dhaliwal II, MD Work Phone: [facility] 04-18-2023 14:38-0400 Body weight 54.16 kg Kentrell Dhaliwal II, MD Work Phone: [facility] 04-18-2023 14:38-0400 Diastolic blood pressure 88 mm[Hg] Kentrell Dhaliwal II, MD Work Phone: [facility] 04-18-2023 14:38-0400 Heart rate 57 /min Kentrell Dhaliwal II, MD Work Phone: [facility] 04-18-2023 14:38-0400 Respiratory rate 12 /min Kentrell Dhaliwal II, MD Work Phone: [facility] 04-18-2023 14:38-0400 SaO2% (BldA) [Mass fraction] 99 % Kentrell Dhaliwal II, MD Work Phone: [facility] 04-18-2023 14:38-0400 Systolic blood pressure 128 mm[Hg] Kentrell Dhaliwal II, MD Work Phone: [facility] 04-01-2023 13:44-0400 Diastolic blood pressure 96 mm[Hg] Dr. Jose Stanton Work Phone: [facility] 04-01-2023 13:44-0400 Heart rate 98 /min Dr. Jose Stanton Work Phone: [facility] 04-01-2023 13:44-0400 Respiratory rate 22 /min Dr. Jose Stanton Work Phone: [facility] 04-01-2023 13:44-0400 SaO2% (BldA) [Mass fraction] 99 % Dr. Jose Stanton Work Phone: [facility] 04-01-2023 13:44-0400 Systolic blood pressure 160 mm[Hg] Dr. Jose Stanton Work Phone: [facility] 03-31-2023 22:58-0400 Body mass index (BMI) [Ratio] 24.1 kg/m2 Dr. Jose Stnaton Work Phone: [facility] 03-31-2023 22:58-0400 Body weight [address] Jose Stanton Work Phone: [facility] 03-31-2023 22:22-0400 Body height 154.[address] Jose Stanton Work Phone: [facility] 03-31-2023 22:22-0400 Body temperature 96.6 [degF] Dr. Jose Stanton Work Phone: [facility] 03-18-2023 15:15-0400 Body temperature 98 [degF] Dr. Jose Stanton Work Phone: [facility] 03-18-2023 15:15-0400 Diastolic blood pressure 88 mm[Hg] Dr. Jose Stanton Work Phone: [facility] 03-18-2023 15:15-0400 Heart rate 78 /min Dr. Jose Stanton Work Phone: [facility] 03-18-2023 15:15-0400 Respiratory rate 18 /min Dr. Jose Stanton Work Phone: [facility] 03-18-2023 15:15-0400 SaO2% (BldA) [Mass fraction] 100 % Dr. Jose Stanton Work Phone: [facility] 03-18-2023 15:15-0400 Systolic blood pressure 168 mm[Hg] Dr. Jose Stanton Work Phone: [facility] 03-18-2023 06:00-0400 Body mass index (BMI) [Ratio] 22.5 kg/m2 Dr. Jose Stanton Work Phone: [facility] 03-18-2023 06:00-0400 Body weight 54.[address] Jose Stanton Work Phone: [facility] 03-16-2023 15:07-0400 Body height 154.[address] Jose Stanton Work Phone: 4(329)[phone] [place] [address] 03-16-2023 06:45-0400 Body temperature 97.6 [degF] Dr. Jose Stanton Work Phone: [facility] 03-16-2023 06:45-0400 Diastolic blood pressure 112 mm[Hg] Dr. Jose Stanton Work Phone: 6(556)[phone] [place] [address] 03-16-2023 06:45-0400 Heart rate 85 /min Dr. Jose Stanton Work Phone: 8(436)[phone] [place] [address] 03-16-2023 06:45-0400 Respiratory rate 18 /min Dr. Jose Stanton Work Phone: [facility] 03-16-2023 06:45-0400 SaO2% (BldA) [Mass fraction] 99 % Dr. Jose Stanton Work Phone: [facility] 03-16-2023 06:45-0400 Systolic blood pressure 153 mm[Hg] Dr. Jose Stanton Work Phone: [facility] 03-16-2023 03:35-0400 Body height 154.[address] Jose Stanton Work Phone: [facility] 03-16-2023 03:35-0400 Body mass index (BMI) [Ratio] 23.4 kg/m2 Dr. Jose Stanton Work Phone: 1(713)[phone] [place] [address] 03-16-2023 03:35-0400 Body weight 56.[address] Jose Stanton Work Phone: [facility] 12-12-2022 00:08-0400 Diastolic blood pressure 67 mm[Hg] [facility] 12-12-2022 00:08-0400 Heart rate 81 /min [facility] 12-12-2022 00:08-0400 Respiratory rate 18 /min [facility] 12-12-2022 00:08-0400 SaO2% (BldA) [Mass fraction] 98 % [facility] 12-12-2022 00:08-0400 Systolic blood pressure 154 mm[Hg] [facility] 12-11-2022 22:35-0400 Body temperature 98 [degF] [facility] 12-11-2022 21:50-0400 Body mass index (BMI) [Ratio] 24.5 kg/m2 [facility] 12-11-2022 21:50-0400 Body weight 60.7 kg [facility] 12-11-2022 20:26-0400 Body height 157.48 cm [facility] 11-23-2022 10:53-0500 Body height 154.9 cm Kentrell Dhaliwal II, MD Work Phone: [facility] 11-23-2022 10:53-0500 Body temperature 97.59 [degF] Kentrell Dhaliwal II, MD Work Phone: [facility] 11-23-2022 10:53-0500 Body weight 61.69 kg Kentrell Dhaliwal II, MD Work Phone: [facility] 11-23-2022 10:53-0500 Diastolic blood pressure 88 mm[Hg] Kentrell Dhaliwal II, MD Work Phone: [facility] 11-23-2022 10:53-0500 Heart rate 75 /min Kentrell Dhaliwal II, MD Work Phone: [facility] 11-23-2022 10:53-0500 Respiratory rate 12 /min Kentrell Dhaliwal II, MD Work Phone: [facility] 11-23-2022 10:53-0500 SaO2% (BldA) [Mass fraction] 96 % Kentrell Dhaliwal II, MD Work Phone: [facility] 11-23-2022 10:53-0500 Systolic blood pressure 122 mm[Hg] Kentrell Dhaliwal II, MD Work Phone: [facility] 07-21-2022 14:06-0400 Body height 154.9 cm Travon Umbel DO Work Phone: [facility] 07-21-2022 14:06-0400 Body temperature 97.5 [degF] Travon Umbel DO Work Phone: [facility] 07-21-2022 14:06-0400 Body weight 65.77 kg Travon Umbel DO Work Phone: [facility] 07-21-2022 14:06-0400 Diastolic blood pressure 152 mm[Hg] Travon Umbel DO Work Phone: [facility] 07-21-2022 14:06-0400 Heart rate 84 /min Travon Umbel DO Work Phone: [facility] 07-21-2022 14:06-0400 SaO2% (BldA) [Mass fraction] 100 % Travon Umbel DO Work Phone: [facility] 07-21-2022 14:06-0400 Systolic blood pressure 188 mm[Hg] Travon Umbel DO Work Phone: [facility] 05-30-2022 10:24-0400 Body height 154.9 cm Kentrell Dhaliwal II, MD Work Phone: [facility] 05-30-2022 10:24-0400 Body temperature 97.2 [degF] Kentrell Dhaliwal II, MD Work Phone: [facility] 05-30-2022 10:24-0400 Body weight 68.22 kg Kentrell Dhaliwal II, MD Work Phone: [facility] 05-30-2022 10:24-0400 Diastolic blood pressure 78 mm[Hg] Kentrell Dhaliwal II, MD Work Phone: [facility] 05-30-2022 10:24-0400 Heart rate 80 /min Kentrell Dhaliwal II, MD Work Phone: [facility] 05-30-2022 10:24-0400 Respiratory rate 12 /min Kentrell Dhaliwal II, MD Work Phone: [facility] 05-30-2022 10:24-0400 SaO2% (BldA) [Mass fraction] 99 % Kentrell Dhaliwal II, MD Work Phone: [facility] 05-30-2022 10:24-0400 Systolic blood pressure 118 mm[Hg] Kentrell Dhaliwal II, MD Work Phone: [facility] 04-19-2022 13:08-0400 Body height 154.9 cm Kentrell Dhaliwal II, MD Work Phone: [facility] 04-19-2022 13:08-0400 Body temperature 96.49 [degF] Kentrell Dhaliwal II, MD Work Phone: [facility] 04-19-2022 13:08-0400 Body weight 69.58 kg Kentrell Dhaliwal II, MD Work Phone: [facility] 04-19-2022 13:08-0400 Diastolic blood pressure 82 mm[Hg] Kentrell Dhaliwal II, MD Work Phone: [facility] 04-19-2022 13:08-0400 Heart rate 88 /min Kentrell Dhaliwal II, MD Work Phone: [facility] 04-19-2022 13:08-0400 Respiratory rate 12 /min Kentrell Dhaliwal II, MD Work Phone: [facility] 04-19-2022 13:08-0400 SaO2% (BldA) [Mass fraction] 98 % Kentrell Dhaliwal II, MD Work Phone: [facility] 04-19-2022 13:08-0400 Systolic blood pressure 128 mm[Hg] Kentrell Dhaliwal II, MD Work Phone: [facility] 02-28-2022 14:25-0400 Body weight 74.07 kg Kentrell Dhaliwal II, MD Work Phone: [facility] 02-28-2022 14:25-0400 Diastolic blood pressure 78 mm[Hg] Kentrell Dhaliwal II, MD Work Phone: [facility] 02-28-2022 14:25-0400 Respiratory rate 14 /min Kentrell Dhaliwal II, MD Work Phone: [facility] 02-28-2022 14:25-0400 SaO2% (BldA) [Mass fraction] 98 % Kentrell Dhaliwal II, MD Work Phone: [facility] 02-28-2022 14:25-0400 Systolic blood pressure 110 mm[Hg] Kentrell Dhaliwal II, MD Work Phone: [facility] 01-17-2022 12:55-0400 Body height 154.9 cm Jaswant Moseley MD Work Phone: [facility] 01-17-2022 12:55-0400 Body weight 78.93 kg Jaswant Moseley MD Work Phone: [facility] 01-17-2022 12:55-0400 Diastolic blood pressure 70 mm[Hg] Jaswant Moseley MD Work Phone: [facility] 01-17-2022 12:55-0400 Heart rate 67 /min Jaswant Moseley MD Work Phone: [facility] 01-17-2022 12:55-0400 Systolic blood pressure 120 mm[Hg] Jaswant Moseley MD Work Phone: [facility] 12-27-2021 14:01-0400 Body height 154.9 cm Jaswant Moseley MD Work Phone: [facility] 12-27-2021 14:01-0400 Body weight 82.1 kg Jaswant Moseley MD Work Phone: [facility] 12-14-2021 11:00-0400 Body height 154.9 cm Rosanna Lilly DO Work Phone: [facility] 12-14-2021 11:00-0400 Body weight 82.1 kg Rosanna Lilly DO Work Phone: [facility] Encounters Encounter Date Encounter Type Care Provider Facility Start: 04-12-2025 ambulatory Kentrell Dhaliwal Facility :[facility] Start: 04-12-2025 Emergency department patient visit Kentrell Dhaliwal Facility:[facility] Start: 03-31-2025 End: 03-31-2025 Refill Kentrell Dhaliwal MD Work Phone: [facility] Comment on above: Refill Request Start: 03-30-2025 End: 03-30-2025 ambulatory KENTRELL DHALIWAL II Facility:[facility] Start: 03-13-2025 End: 03-13-[facility] Start: 03-13-2025 End: 03-13-2025 [facility] Comment on above: Population Health Na vigation Outreach ([facility]/) Start: 03-05-2025 End: 03-05-2025 Patient encounter procedure Kentrell Dhaliwal MD Work Phone: [facility] Comment on above: Vertigo (Primary Dx) ; Anxiety and depression; CHAVARRIA (dyspnea on exertion); Palpitations; Gastroesophageal reflux disease, unspecified whether esophagitis present; Hypothyroidism, acquired; Iron deficiency anemia, unspecified iron deficiency anemia type; Drug-induced Parkinson's disease (HCC); Irritable bowel syndrome with both constipation and diarrhea Start: 03-05-2025 End: 03-05-2025 ambulatory KENTRELL DHALIWAL II Facility:[id number] Start: 03-03-2025 End: 03-03-2025 Refill Kentrell Dhaliwal MD Work Phone: [facility] Comment on above: Refill Request Start: 03-02-2025 End: 03-02-2025 ambulatory Kentrell Dhaliwal II, MD Work Phone: [facility] Start: 03-02-2025 End: 03-02-2025 Patient encounter procedure Kentrell Dhaliwal MD Work Phone: [facility] Comment on above: palpiptations Start: 03-02-2025 End: 03-02-2025 Telephone encounter Kentrell Dhaliwal MD Work Phone: [facility] Comment on above: Results Start: 02-26-2025 End: 02-27-2025 Follow-up encounter Kentrell Dhaliwal MD Work Phone: [facility] Start: 02-26-2025 End: 02-26-2025 Telephone encounter Kentrell Dhaliwal MD Work Phone: [facility] Comment on above: Patient Question Start: 02-26-2025 End: 02-26-2025 ambulatory KENTRELL DHALIWAL II Facility:[facility] Start: 02-18-2025 End: 02-18-2025 Refill Kentrell Dhaliwal MD Work Phone: [facility] Comment on above: Refill Request Start: 01-29-2025 End: 01-29-2025 Telephone encounter Kentrell Dhaliwal MD Work Phone: [facility] Comment on above: Medication Request Start: 01-08-2025 End: 01-08-2025 ambulatory KENTRELL DHALIWAL II Facility:[id number] Start: 01-01-2025 End: 01-02-2025 Refill Kentrell Dhaliwal MD Work Phone: [facility] Comment on above: Refill Request Start: 12-25-2024 End: 12-25-2024 Refill Kentrell Dhaliwal MD Work Phone: [facility] Comment on above: Refill Request Start: 12-09-2024 End: 12-09-2024 Refill Kentrell Dhaliwal MD Work Phone: [facility] Comment on above: Refill Request Start: 12-09-2024 End: 12-09-2024 Refill Kentrell Dhaliwal MD Work Phone: [facility] Comment on above: Refill Request Start: 12-08-2024 End: 12-10-2024 Telephone encounter Kentrell Dhaliwal MD Work Phone: [facility] Comment on above: Refill Request Start: 11-28-2024 End: 11-28-2024 Telephone encounter Kentrell Dhaliwal MD Work Phone: [facility] Comment on above: Appointment Start: 11-24-2024 End: 11-24-2024 Refill Kentrell Dhaliwal MD Work Phone: [facility] Comment on above: Refill Request Start: 11-10-2024 End: 11-10-2024 Refill Kentrell Dhaliwal MD Work Phone: [facility] Comment on above: Refill Request Start: 10-28-2024 End: 10-28-2024 Refill Kentrell Dhaliwal MD Work Phone: [facility] Comment on above: Refill Request Start: 10-17-2024 End: 10-17-2024 ambulatory Gertrude Mccloud RN Work Phone: [facility] Start: 10-17-2024 End: 10-17-2024 Patient encounter procedure Gertrude Mccloud RN Work Phone: [facility] Comment on above: Transition Of Care S rebecca phone contact for Transitional Care Management Start: 10-15-2024 End: 10-15-2024 Refill Kentrell Dhaliwal MD Work Phone: [facility] Comment on above: Refill Request Start: 10-07-2024 End: 10-07-2024 Refill Kentrell Dhaliwal MD Work Phone: [facility] Comment on above: Refill Request Start: 09-27-2024 End: 09-29-2024 Refill Kentrell Dhaliwal MD Work Phone: [facility] Comment on above: Refill Request Start: 09-26-2024 End: 09-26-2024 Patient encounter procedure Kentrell Dhaliwal MD Work Phone: [facility] Comment on above: Generalized abdomina l pain (Primary Dx); Gastroesophageal reflux disease, unspecified whether esophagitis present; SOB (shortness of breath); Anxiety and depression; Elevated blood pressure reading without diagnosis of hypertension Start: 09-26-2024 End: 09-26-2024 ambulatory KENTRELL DHALIWAL II Facility:[id number] Start: 09-18-2024 End: 09-18-2024 Patient Outreach Gertrude Mccloud RN Work Phone: [facility] Comment on above: Transition Of Care I nitial phone contact for Transitional Care Management Start: 09-14-2024 ambulatory Paulo Umanzor Facility: [facility] Start: 09-14-2024 End: 09-17-2024 Evaluation and management of inpatient Kentrell Dhaliwal Facility:[facility] Start: 09-11-2024 End: 09-12-2024 Telephone encounter Kentrell Dhaliwal MD Work Phone: [facility] Comment on above: Ear Pain Start: 09-09-2024 End: 09-12-2024 Refill Kentrell Dhaliwal MD Work Phone: [facility] Comment on above: Refill Request Start: 09-03-2024 End: 09-03-2024 Patient encounter procedure Kentrell Dhaliwal MD Work Phone: [facility] Comment on above: Gastroesophageal ref lux disease, unspecified whether esophagitis present (Primary Dx); Generalized abdominal pain; Anxiety and depression; Hypothyroidism, acquired; Elevated blood pressure reading without diagnosis of hypertension Start: 09-03-2024 End: 09-03-2024 ambulatory KENTRELL DHALIWAL Facility:[id number] Start: 08-28-2024 End: 08-29-2024 Telephone encounter Kentrell Dhaliwal MD Work Phone: [facility] Start: 08-19-2024 End: 08-19-2024 Telephone encounter Kentrell Dhaliwal MD Work Phone: [facility] Start: 08-12-2024 End: 08-13-2024 Telephone encounter Kentrell Dhaliwal MD Work Phone: [facility] Comment on above: Patient Question Start: 08-11-2024 End: 08-11-2024 Telephone encounter Kentrell Dhaliwal MD Work Phone: [facility] Comment on above: Patient Question Start: 08-01-2024 End: 08-01-2024 Emergency department patient visit Kentrell Dhaliwal Facility:[facility] Start: 07-30-2024 End: 07-30-2024 Telephone encounter Kentrell Dhaliwal MD Work Phone: [facility] Start: 07-29-2024 End: 07-29-2024 Refill Ketnrell Dhaliwal MD Work Phone: [facility] Comment on above: Refill Request Start: 07-04-2024 End: 07-04-2024 Patient encounter procedure Kentrell Dhaliwal MD Work Phone: [facility] Comment on above: Acute otitis media, left (Primary Dx); Acute otitis externa of left ear, unspecified type Start: 07-04-2024 End: 07-04-2024 ambulatory KENTRELL DHALIWAL II Facility:[id number] Start: 07-04-2024 End: 07-04-2024 Refill Kentrell Dhaliwal MD Work Phone: [facility] Comment on above: Refill Request Start: 07-01-2024 End: 07-02-2024 Refill Kentrell Dhaliwal MD Work Phone: [facility] Comment on above: Refill Request Start: 06-30-2024 End: 06-30-2024 Refill Kentrell Dhaliwal MD Work Phone: [facility] Comment on above: Refill Request Start: 06-30-2024 End: 06-30-2024 Refill Kentrell Dhaliwal MD Work Phone: [facility] Comment on above: Refill Request Start: 06-25-2024 End: 07-01-2024 Telephone encounter Kentrell Dhaliwal MD Work Phone: [facility] Comment on above: Medication Question Start: 06-14-2024 End: 06-16-2024 Refill Kentrell Dhaliwal MD Work Phone: [facility] Comment on above: Refill Request Start: 06-13-2024 End: 06-13-2024 Telephone encounter Kentrell Dhaliwal MD Work Phone: [facility] Comment on above: Results Start: 06-11-2024 End: 06-11-2024 ambulatory KENTRELL TRE DHALIWAL SUSI Facility:[id number] Start: 06-11-2024 End: 06-11-2024 Patient encounter procedure Kentrell Dhaliwal MD Work Phone: [facility] Comment on above: Gastroesophageal ref lux disease, unspecified whether esophagitis present (Primary Dx); Anxiety and depression; Chronic insomnia; Hypothyroidism, acquired; Iron deficiency anemia, unspecified iron deficiency anemia type; Nausea; Vitamin D deficiency Start: 06-11-2024 End: 06-11-2024 ambulatory KENTRELL DHALIWAL II Facility:[id number] Start: 05-30-2024 End: 05-30-2024 Refill Kentrell Dhaliwal MD Work Phone: [facility] Comment on above: Refill Request Start: 05-28-2024 End: 05-29-2024 Refill Kentrell Dhaliwal MD Work Phone: [facility] Comment on above: Refill Request Start: 05-07-2024 End: 05-07-2024 Telephone encounter Kentrell Dhaliwal MD Work Phone: [facility] Comment on above: requesting call back Start: 05-01-2024 Refill Kentrell gould MD Work Phone: [facility] Comment on above: Refill Request Start: 04-14-2024 Refill Kentrell gould MD Work Phone: [facility] Comment on above: Refill Request Start: 04-05-2024 Refill Kentrell gould MD Work Phone: [facility] Comment on above: Refill Request Start: 04-01-2024 Refill Kentrell gould MD Work Phone: [facility] Comment on above: Refill Request Start: 03-17-2024 Refill Kentrell gould MD Work Phone: [facility] Comment on above: Refill Request Start: 03-03-2024 Refill Kentrell gould MD Work Phone: [facility] Comment on above: Refill Request Start: 02-01-2024 Refill Kentrell gould MD Work Phone: [facility] Comment on above: Refill Request Start: 01-15-2024 Refill Kentrell gould MD Work Phone: [facility] Comment on above: Refill Request Start: 01-02-2024 End: 01-02-2024 Patient encounter procedure Kentrell Dhaliwal MD Work Phone: [facility] Comment on above: Gastroesophageal ref lux disease, unspecified whether esophagitis present (Primary Dx); Nausea; Anxiety and depression; Diarrhea, unspecified type; Generalized weakness; Hypothyroidism, acquired; Iron deficiency anemia, unspecified iron deficiency anemia type Start: 12-17-2023 Telephone encounter Kentrell Dhaliwal MD Work Phone: [facility] Comment on above: patient requesting c all back ; Patient Question Start: 12-13-2023 End: 12-13-2023 Emergency department patient visit Dr. Kentrell Dhaliwal Work Phone: [facility] Work Phone: Start: 12-11-2023 Non-patient / Non-visit Dr. India Dhaliwal Work Phone: [facility] Work Phone: Start: 12-11-2023 Non-patient / Non-visit Dr. India Dhaliwal Work Phone: [facility] Start: 12-10-2023 Non-patient / Non-visit Dr. India Dhaliwal Work Phone: [facility] Start: 12-10-2023 Non-patient / Non-visit Dr. India Dhaliwal Work Phone: [facility] Work Phone: Start: 12-09-2023 Non-patient / Non-visit Dr. India Dhaliwal Work Phone: [facility] Work Phone: Start: 12-09-2023 Non-patient / Non-visit Dr. India Dhaliwal Work Phone: [facility] Start: 12-08-2023 Non-patient / Non-visit Dr. India Dhaliwal Work Phone: [facility] Work Phone: Start: 12-08-2023 Non-patient / Non-visit Dr. India Dhaliwal Work Phone: [facility] Start: 12-07-2023 Non-patient / Non-visit Dr. India Dhaliwal Work Phone: [facility] Start: 12-07-2023 Non-patient / Non-visit Dr. India Dhaliwal Work Phone: [facility] Work Phone: Start: 12-07-2023 End: 12-11-2023 Evaluation and management of inpatient Dr. [facility] Start: 12-06-2023 Telephone encounter Kentrell Dhaliwal MD Work Phone: [facility] Comment on above: Patient Update; Joanie ent Question Start: 11-01-2023 Refill Kentrell gould MD Work Phone: [facility] Comment on above: Refill Request Start: 10-25-2023 Refill Kentrell gould MD Work Phone: [facility] Comment on above: Refill Request Start: 08-03-2023 Telephone encounter Kentrell Dhaliwal MD Work Phone: [facility] Comment on above: Patient Question; Re fill Request Start: 07-25-2023 Telephone encounter Kentrell Dhaliwal MD Work Phone: [facility] Comment on above: Results Start: 07-24-2023 End: 07-24-2023 Subsequent hospital visit by physician [address] GENERAL Comment on above: Generalized weakness [R53.1] Start: 07-24-2023 End: 07-24-2023 Patient encounter procedure Kentrell Dhaliwal MD Work Phone: [facility] Comment on above: Generalized weakness (Primary Dx); SOB (shortness of breath); CHAVARRIA (dyspnea on exertion); Fatigue, unspecified type; Chronic insomnia; Anxiety and depression; Generalized abdominal pain Start: 07-04-2023 Telephone encounter Kentrell Dhaliwal MD Work Phone: [facility] Comment on above: Refill Request Start: 06-18-2023 Refill Kentrell gould MD Work Phone: [facility] Comment on above: Refill Request Start: 06-06-2023 Telephone encounter Kentrell Dhaliwal MD Work Phone: [facility] Comment on above: Refill Request Start: 06-01-2023 Telephone encounter Kentrell Dhaliwal MD Work Phone: [facility] Comment on above: Patient Question Start: 05-22-2023 Refill Kentrell gould MD Work Phone: [facility] Comment on above: Refill Request Start: 05-18-2023 Telephone encounter Kentrell Dhaliwal MD Work Phone: [facility] Comment on above: Refill Request Start: 05-04-2023 Refill Kentrell gould MD Work Phone: [facility] Comment on above: Refill Request Start: 04-23-2023 Telephone encounter Kentrell Dhaliwal MD Work Phone: [facility] Comment on above: Patient Update; Refi ll Request Start: 04-18-2023 End: 04-18-2023 Patient encounter procedure Kentrell Dhaliwal MD Work Phone: [facility] Comment on above: Small bowel obstruct ion (HCC) (Primary Dx); Recurrent UTI (urinary tract infection); Dermatitis; Gastroesophageal reflux disease, unspecified whether esophagitis present; Hypothyroidism, acquired; Anxiety and depression; Generalized weakness Start: 04-11-2023 Refill Kentrell gould MD Work Phone: [facility] Comment on above: Refill Request Start: 04-10-2023 Refill Kentrell gould MD Work Phone: [facility] Comment on above: Refill Request Start: 03-31-2023 End: 04-01-2023 Emergency department patient visit Dr. Jose Stanton Work Phone: [facility] Work Phone: Start: 03-22-2023 Patient Outreach Gertrude Mccloud RN Work Phone: [facility] Comment on above: Transition Of Care Start: 03-18-2023 Non-patient / Non-visit Dr. Carly Stanton Work Phone: [facility] Work Phone: Start: 03-18-2023 Non-patient / Non-visit Dr. Carly Stanton Work Phone: [facility] Start: 03-17-2023 Non-patient / Non-visit Dr. Carly Stanton Work Phone: [facility] Work Phone: Start: 03-17-2023 Non-patient / Non-visit Dr. Carly Stanton Work Phone: [facility] Start: 03-16-2023 Non-patient / Non-visit Dr. Carly Stanton Work Phone: [facility] Start: 03-16-2023 Non-patient / Non-visit Dr. Carly Stanton Work Phone: [facility] Work Phone: Start: 03-16-2023 End: 03-18-2023 Evaluation and management of inpatient [facility]: Start: 01-29-2023 Refill Kentrell gould MD Work Phone: [facility] Comment on above: Refill Request Start: 01-17-2023 Refill Kentrell gould MD Work Phone: [facility] Comment on above: Refill Request Start: 01-09-2023 Refill Kentrell gould MD Work Phone: [facility] Comment on above: Refill Request Start: 12-12-2022 Telephone encounter Kentrell Dhaliwal MD Work Phone: [facility] Comment on above: Patient Update Start: 12-11-2022 End: 12-12-2022 Emergency department patient visit [facility] Start: 12-11-2022 Refill Kentrell gould MD Work Phone: [facility] Comment on above: Refill Request Start: 11-23-2022 Telephone encounter Kentrell Dhaliwal MD Work Phone: [facility] Comment on above: Results Start: 11-23-2022 ambulatory KENTRELL DHALIWAL II Facil ity:[facility] Start: 11-23-2022 End: 11-23-2022 Subsequent hospital visit by physician Provider [facility] Start: 11-23-2022 End: 11-23-2022 Patient encounter procedure Kentrell Dhaliwal MD Work Phone: [facility] Comment on above: Hypothyroidism, acqu ired (Primary Dx); Type 2 diabetes mellitus without complication, without long-term current use of insulin (HCC); Gastroesophageal reflux disease, unspecified whether esophagitis present; Anxiety and depression; Elevated liver function tests; Irritable bowel syndrome with both constipation and diarrhea Start: 11-13-2022 Refill Kentrell gould MD Work Phone: [facility] Comment on above: Refill Request Start: 10-31-2022 Refill Kentrell gould MD Work Phone: [facility] Comment on above: Refill Request Start: 10-16-2022 ambulatory LEO rush:[facility] Start: 10-16-2022 End: 10-16-2022 Subsequent hospital visit by physician Provider [facility] Comment on above: PAIN LLE Start: 10-14-2022 End: 10-15-2022 Emergency department patient visit LEO EMERSON Facility:[facility] Start: 10-14-2022 End: 10-14-2022 Subsequent hospital visit by physician Provider [facility] Comment on above: MULTIPLE COMPLAINTS Start: 09-05-2022 Telephone encounter Kentrell Dhaliwal MD Work Phone: [facility] Comment on above: Patient Question Start: 08-14-2022 Refill Kentrell gould MD Work Phone: [facility] Comment on above: Refill Request Start: 08-07-2022 Telephone encounter Kentrell Dhaliwal MD Work Phone: [facility] Comment on above: Patient Update Start: 08-03-2022 ambulatory Kentrell gould MD Work Phone: [facility] Start: 08-03-2022 E-mail encounter fro m caregiver Kentrell Dhaliwal II, MD Work Phone: [facility] Start: 07-24-2022 Telephone encounter Travon gamboa DO Work Phone: Gastroenterology Comment on above: Patient Update Start: 07-21-2022 End: 07-21-2022 [facility] Comment on above: LLQ abdominal pain [ R10.32] Start: 07-21-2022 End: 07-21-2022 Patient encounter procedure Travon Rene DO Work Phone: Gastroenterology Comment on above: LLQ abdominal pain ( Primary Dx); Nausea and vomiting, unspecified vomiting type; Partial small bowel obstruction (HCC) Start: 07-18-2022 Patient Outreach Silvia Hicks RN Work Phone: [facility] Comment on above: Transition Of Care ( [facility]NY D/C [facility] 07/17/22 UTI, Partial bowel obstruction) Start: 07-17-2022 Refill Kentrell gould MD Work Phone: [facility] Comment on above: Refill Request Start: 07-14-2022 End: 07-17-2022 Evaluation and management of inpatient KAILA FUNEZ Facility:[facility] Start: 07-14-2022 End: 07-17-2022 Subsequent hospital visit by physician Provider [facility] Comment on above: Discharge Summary - Provider Hazel - 07/17/2022 11:50 [place] [address] HEALTH INFORMATION MANAGEMENT DISCHARGE SUMMARY Patient: ADINA SECOBAR I ANUJA WALKER M.D. [id number] F Status: ADM IN [address] [place] [address]A Date of Admission: 07/14/22 Discharge Summary Date [...] By: ANUJA WALKER M.D. Tests performed at: [place] [address] Start: 07-10-2022 Telephone encounter Kentrell Dhaliwal MD Work Phone: [facility] Comment on above: Patient Update; Medi cation Problem Start: 07-07-2022 End: 07-07-2022 Emergency department patient visit HALINA Ammy MITCHELL Facility:[facility] Start: 07-07-2022 Telephone encounter Kentrell Dhaliwal MD Work Phone: [facility] Comment on above: Patient Question Start: 07-07-2022 End: 07-07-2022 Subsequent hospital visit by physician Provider [facility] Start: 07-04-2022 Refill Kentrell gould MD Work Phone: [facility] Comment on above: Refill Request Start: 06-20-2022 Telephone encounter Kentrell Dhaliwal MD Work Phone: [facility] Comment on above: Patient Question Start: 06-18-2022 Refill Kentrell gould MD Work Phone: [facility] Comment on above: Refill Request Start: 06-06-2022 Refill Kentrell gould MD Work Phone: [facility] Comment on above: Refill Request Start: 06-06-2022 Refill Kentrell gould MD Work Phone: [facility] Comment on above: Refill Request Start: 05-30-2022 End: 05-30-2022 Patient encounter procedure Kentrell Dhaliwal MD Work Phone: [facility] Comment on above: Syncope, unspecified syncope type (Primary Dx); Anxiety and depression; Irritable bowel syndrome with both constipation and diarrhea; Gastroesophageal reflux disease, unspecified whether esophagitis present; Hypothyroidism, acquired; SBO (small bowel obstruction) (HCC); Recurrent UTI (urinary tract infection) Start: 05-18-2022 Telephone encounter Kentrell Dhaliwal MD Work Phone: [facility] Comment on above: Patient Question Refill Request Start: 05-10-2022 End: 05-12-2022 Evaluation and management of inpatient MARILYN LYNN Facility:[facility] Start: 05-09-2022 Patient Outreach Maria C downing [employer] Work Phone: [facility] Comment on above: Ambulatory Social Wo rk Start: 05-05-2022 Telephone encounter Kentrell Dhaliwal MD Work Phone: [facility] Comment on above: Insurance Authorizat ion Medication Problem Start: 05-04-2022 Refill Kentrell gould MD Work Phone: [facility] Comment on above: Refill Request Start: 05-04-2022 Telephone encounter Gladys Mauricio RN [facility] Comment on above: ER F/U Start: 05-03-2022 End: 05-04-2022 Emergency department patient visit ABEL JOSEPH Facility:[facility] Start: 05-03-2022 End: 05-03-2022 Subsequent hospital visit by physician Provider [facility] Start: 05-02-2022 Telephone encounter Kentrell Dhaliwal MD Work Phone: [facility] Comment on above: Patient Update; Medi cation Request Start: 04-24-2022 ambulatory Jasmin Schmidt RN [facility] Comment on above: ER F/U Start: 04-21-2022 Telephone encounter Kentrell Dhaliwal MD Work Phone: [facility] Comment on above: Insurance Authorizat ion Start: 04-21-2022 End: 04-21-2022 Emergency department patient visit STUART Armenta FAMILIA Facility:[facility] Start: 04-21-2022 End: 04-21-2022 Subsequent hospital visit by physician Provider [facility] Comment on above: ABD PAIN Start: 04-20-2022 Telephone encounter Kentrell Dhaliwal MD Work Phone: [facility] Comment on above: Results Start: 04-19-2022 ambulatory KENTRELL DHALIWAL II Facil ity:[facility] Start: 04-19-2022 End: 04-19-2022 Subsequent hospital visit by physician Provider [facility] Comment on above: K21.9 E11.9 R79.89 E 03.9 Start: 04-19-2022 End: 04-19-2022 Patient encounter procedure Kentrell Dhaliwal MD Work Phone: [facility] Comment on above: Anxiety and depressi on (Primary Dx); Irritable bowel syndrome with both constipation and diarrhea; Gastroesophageal reflux disease, unspecified whether esophagitis present; Type 2 diabetes mellitus without complication, without long-term current use of insulin (HCC); Elevated liver function tests; Hypothyroidism, acquired; Myalgias; Chronic insomnia Start: 04-03-2022 Refill Kentrell gould MD Work Phone: [facility] Comment on above: Refill Request Start: 04-02-2022 Refill Kentrell gould MD Work Phone: [facility] [place] Comment on above: Refill Request Start: 03-21-2022 Refill Kentrell gould MD Work Phone: [facility] [place] Comment on above: Refill Request Start: 03-01-2022 Telephone encounter Kentrell Dhaliwal MD Work Phone: [facility] Comment on above: Patient Question Start: 02-28-2022 End: 02-28-2022 Patient encounter procedure Kentrell Dhaliwal MD Work Phone: [facility] Comment on above: Anxiety and depressi on (Primary Dx); Chronic insomnia; Gastroesophageal reflux disease, unspecified whether esophagitis present; Type 2 diabetes mellitus without complication, without long-term current use of insulin ([facility]); SBO (small bowel obstruction) ([facility]) Start: 02-22-2022 Telephone encounter Kentrell Dhaliwal MD Work Phone: [facility] Comment on above: Patient Update Start: 02-03-2022 Refill Kentrell guold MD Work Phone: [facility] Comment on above: Refill Request Start: 02-02-2022 Patient Outreach Maximo Benavides RN [employer] Comment on above: Transition Of Care ( [facility] Discharged 02/01/2022. TCM Initial encounter) Start: 01-24-2022 Telephone encounter Kentrell Dhaliwal MD Work Phone: [facility] [place] Comment on above: Patient Question Refill Request Start: 01-23-2022 Refill Kentrell gould MD Work Phone: [facility] [place] Comment on above: Refill Request Start: 01-23-2022 Telephone encounter Kentrell Dhaliwal MD Work Phone: [facility] [place] Comment on above: Referral Request Start: 01-17-2022 End: 01-17-2022 Patient encounter procedure Jaswant Moseley MD Work Phone: [facility] Comment on above: History of small bow el obstruction (Primary Dx); Abdominal pain, unspecified abdominal location Start: 01-13-2022 Telephone encounter Kentrell Dhaliwal MD Work Phone: [facility] Comment on above: Results Patient Update Start: 01-12-2022 End: 01-12-2022 Subsequent hospital visit by physician Provider [facility] Comment on above: GENERALIZED ABD PAIN ELEVATED LFT Start: 01-09-2022 Telephone encounter Kentrell Dhaliwal MD Work Phone: [facility] [place] Comment on above: Orders Start: 01-06-2022 Telephone encounter Kentrell Dhaliwal MD Work Phone: [facility] Comment on above: Results Start: 01-05-2022 End: 01-05-2022 Subsequent hospital visit by physician Provider [facility] Comment on above: R53.83 E11.9 E03.9 K 21.9 E53.8 E55.9 D64.9 Start: 01-05-2022 Telephone encounter Kentrell Dhaliwal MD Work Phone: [facility] Comment on above: Insurance Authorizat ion Start: 12-28-2021 End: 12-28-2021 Subsequent hospital visit by physician Provider [facility] Comment on above: ABDOMINAL PAIN HISTO RY OF SM BOWEL OBSTRUCTION Start: 12-27-2021 End: 12-27-2021 Patient encounter procedure Jaswant Moseley MD Work Phone: [facility] Comment on above: History of small bow el obstruction (Primary Dx); Abdominal pain, unspecified abdominal location; Post-operative state Start: 12-27-2021 Telephone encounter Jaswant reardon MD Work Phone: [facility] Comment on above: Scheduling (UPPER GI SERIES ) Start: 12-26-2021 End: 12-26-2021 Subsequent hospital visit by physician Provider [facility] Comment on above: K65.1 PERITONEAL ABS CESS Start: 12-21-2021 Patient Outreach Maximo Benavides RN [employer] Comment on above: Transition Of Care ( [facility] Discharged 12/20/2021. TCM Initial encounter) Start: 12-21-2021 Refill Kentrell gould MD Work Phone: [facility] Comment on above: Refill Request Start: 12-20-2021 End: 12-20-2021 Patient encounter procedure Jaswant Moseley MD Work Phone: [facility] Comment on above: History of small bow el obstruction (Primary Dx); On total parenteral nutrition (TPN); Post-operative state Start: 12-20-2021 End: 12-20-2021 Subsequent hospital visit by physician Kentrell Dhaliwal II, MD Work Phone: [facility] Comment on above: BOWEL OBSTRUCTION/RM Start: 12-19-2021 End: 12-19-2021 Subsequent hospital visit by physician Fernie Aranda Work Phone: [facility] Comment on above: CLIENT BILL Start: 12-15-2021 ambulatory Maximo Benavides RN AG VNS Start: 12-15-2021 End: 12-16-2021 Subsequent hospital visit by physician Fernie Aranda Work Phone: [facility] Comment on above: CLIENT BILL Transition Of Care ( SNF Update) Start: 12-14-2021 End: 12-14-2021 Patient encounter procedure Rosanna Lilly DO Work Phone: [facility] Comment on above: History of small bow el obstruction (Primary Dx); On total parenteral nutrition (TPN) Start: 12-08-2021 End: 12-08-2021 Subsequent hospital visit by physician Fernie Aranda Work Phone: [facility] Comment on above: CLIENT BILL Start: 12-05-2021 Orders Only Jaswant Moseley MD Work Phone: [facility] Comment on above: Peritoneal abscess ( HCC) (Primary Dx); Adverse effect of treatment, initial encounter Orders (CT abd/pelvi s auth) Start: 03-04-2005 Documentation procedure Geovanny Bonilla MD Work Phone: [facility] Start: 03-04-2005 Historic EMR Geovanny dale MD Work Phone: [facility] Procedures Date Procedure Procedure Detail Performing [...] 10-16-2022 Dup-scan xtr veins unilateral/limited study Leo Bethany Emerson Work Phone: Start: 10-14-2022 Ecg routine ecg w/le ast 12 lds trcg only w/o i&r Ccf Provider Start: 10-14-2022 BASIC METABOLIC PNL Octavio yamile Emerson Work Phone: Start: 10-14-2022 CBC + DIFF Leo Bethany Ki Work Phone: Start: 10-14-2022 CK CREATINE KINASE Jony Sims Ki Work Phone: Start: 10-14-2022 Creatine kinase.MB [Mass/volume] in Serum or Plasma Leo Emerson Work Phone: Start: 10-14-2022 Radiologic exam ches t single view Leo Emerson Work Phone: Start: 10-14-2022 TROPONIN T Leo Emerson Work Phone: Start: 07-21-2022 Radiologic exam abdo men 2 views Travontheodore Rene Work Phone: Start: 07-17-2022 CREATININE BLD Provider [facility] Start: 07-17-2022 Radiologic exam abdo men 1 view Kentrell Pacheco MD Work Phone: Start: 07-16-2022 BASIC METABOLIC PNL Pro vider [facility] Start: 07-16-2022 CBC + DIFF Provider C [facility] Start: 07-15-2022 CREATININE BLD Provider [facility] Start: 07-15-2022 Radiologic exam abdo men 1 view Kentrell Pacheco MD Work Phone: Start: 07-14-2022 EXPEDITED COVID19 Kaila Funez Work Phone: Start: 07-13-2022 Bacteria identified in Blood by Culture Kaila Funez Work Phone: Start: 07-13-2022 Bacteria identified in Urine by Culture Kaila Funez Work Phone: Start: 07-13-2022 CBC + DIFF Kaila Funez Work Phone: Start: 07-13-2022 URINALYSIS WITH MICROSCOPIC, REFLEX CULTURE Kaila Funez Work Phone: Start: 07-13-2022 URINALYSIS, WITH MICROSCOPIC Kaila Funez Work Phone: Start: 07-13-2022 BASIC METABOLIC PNL Elham Funez Work Phone: Start: 07-13-2022 Ct abdomen & pelvis w/contrast material Kaila Funez Work Phone: Start: 07-07-2022 BASIC METABOLIC PNL Gilbert in Rick Mitchell Work Phone: Start: 07-07-2022 CBC + DIFF Halina Oscar bernal Tarun Work Phone: Start: 07-07-2022 HEPATIC FUNCTION PNL Ke consuelo Rick Mitchell Work Phone: Start: 07-07-2022 LIPASE BLD Halina Oscar bernal Mitchell Work Phone: Start: 07-07-2022 URINALYSIS WITH MICROSCOPIC, REFLEX CULTURE Halina Rick Mitchell Work Phone: Start: 07-07-2022 URINALYSIS, WITH MICROSCOPIC Halina Mitchell Work Phone: Start: 05-03-2022 Ecg routine ecg w/le ast 12 lds trcg only w/o i&r Ccf Provider Start: 05-03-2022 Ct abdomen & pelvis w/contrast material Abel Joseph Work Phone: Start: 05-03-2022 BASIC METABOLIC PNL Karis theodore Joseph Work Phone: Start: 05-03-2022 CBC + DIFF Sarai Joseph Work Phone: Start: 05-03-2022 HEPATIC FUNCTION PNL Na flaco Joseph Work Phone: Start: 05-03-2022 LACTIC ACID/LACTATE Karis theodore Joseph Work Phone: Start: 05-03-2022 LIPASE BLD Sarai Joseph Work Phone: Start: 05-03-2022 TROPONIN T Abel And wilbert Joseph Work Phone: Start: 05-03-2022 UA WITH CULTURE IF INDICATED Abel Joseph Work Phone: Start: 05-03-2022 URINALYSIS, WITH MICROSCOPIC Abel Joseph Work Phone: Start: 04-21-2022 UA WITH CULTURE IF INDICATED Stuart Morales Current Work Phone: Start: 04-21-2022 EXPEDITED COVID19 Stuart Morales Current Work Phone: Start: 04-21-2022 BASIC METABOLIC PNL Zhang Morales Current Work Phone: Start: 04-21-2022 CBC + DIFF Stuart estrada Current Work Phone: Start: 04-21-2022 Ct abdomen & pelvis w/contrast material Stuart Morales Current Work Phone: Start: 04-21-2022 HEPATIC FUNCTION PNL Maggy Morales Current Work Phone: Start: 04-21-2022 LIPASE BLD Stuart Lorie en Current Work Phone: Start: 04-19-2022 BASIC METABOLIC PNL Florin Dhaliwal MD Work Phone: Start: 04-19-2022 CBC + DIFF Kentrell Dhalwial MD Work Phone: Start: 04-19-2022 HEPATIC FUNCTION PNL India Dhaliwal MD Work Phone: Start: 04-19-2022 LIPID [...] RSV Vaccine (1 - 1-dose 75+ series) [facility] Start: 03-05-2026 Annual PCP Team Chronic Disease Visit Annual PCP Team Chronic Disease Visit [facility] Start: 01-08-2026 Annual PCP Team Chronic Disease Visit Annual PCP Team Chronic Disease Visit [facility] Start: 01-08-2026 Covid-19 Vaccine ( season) Covid-19 Vaccine ( season) [facility] Comment on above: Postponed from 05/18/2024 (Declined at t his time) Start: 09-26-2025 Annual PCP Team Chronic Disease Visit Annual PCP Team Chronic Disease Visit [facility] Start: 09-03-2025 Annual PCP Team Chronic Disease Visit Annual PCP Team Chronic Disease Visit [facility] Start: 07-10-2025 End: 07-10-2025 Patient encounter procedure 07/10/2025 2:00 PM EDT Office Visit [facility] [address] [place] [address] Kentrell Dhaliwal II, MD [address] [place] [address] [facility] Comment on above: 6 months Start: 07-04-2025 Annual PCP Team Chronic Disease Visit Annual PCP Team Chronic Disease Visit [facility] Start: 06-11-2025 Annual PCP Team Chronic Disease Visit Annual PCP Team Chronic Disease Visit [facility] Start: 05-18-2025 Influenza vaccination [facility] Start: 03-30-2025 End: 03-30-2025 Patient encounter procedure [facility] Comment on above: Dx: Vertigo [R42] Start: 03-08-2025 Screening for malignant neoplasm of colon [facility] Start: 03-05-2025 End: 03-05-2025 Patient encounter procedure 03/05/2025 1:00 PM EDT Office Visit [facility] [address] [place] [address] Kentrell Dhaliwal II, MD [address] [place] [address] [facility] Comment on above: palpitations Start: 02-26-2025 End: 05-28-2025 25-hydroxyvitamin D3 [Mass/volume] in Serum or Plasma [facility] Comment on above: Expected: 02/26/2025, Expires: Start: 02-26-2025 End: 05-28-2025 Cobalamin (Vitamin B12) [Mass/volume] in Serum or Plasma [facility] Comment on above: Expected: 02/26/2025, Expires: Start: 02-26-2025 End: 05-28-2025 Thyrotropin [Units/volume] in Serum or Plasma [facility] Work Phone: Comment on above: Expected: 02/26/2025, Expires: Start: 01-08-2025 End: 01-08-2025 Patient encounter procedure [facility] Comment on above: 4 MONTH FOLLOW UP Start: 01-01-2025 Annual PCP Team Chronic Disease Visit Annual PCP Team Chronic Disease Visit [facility] Start: 12-18-2024 End: 12-18-2024 Patient encounter procedure 12/18/2024 2:00 PM EDT Office Visit [facility] [address] [place], [place] [id number] Kentrell Dhaliwal II, MD [address] [place] [address] Cough, phlegm in throat [facility] Comment on above: Cough, phlegm in throat Start: 11-27-2024 Annual PCP Team Chronic Disease Visit Annual PCP Team Chronic Disease Visit [facility] Start: 09-26-2024 End: 09-26-2024 Patient encounter procedure 09/26/2024 2:40 PM EST Office Visit [address] [place] [address] Kentrell Dhaliwal II, MD [address] [place] [address] [place], [place] [id number] GLENNY d/c [facility] Comment on above: GLENNY d/c [facility] Start: 09-22-2024 End: 09-22-2024 Patient encounter procedure [facility] Comment on above: 3 MONTH FOLLOW UP 3 MONTH FOLLOW UP (O pen Gaps: Breast screeing, Diabetic eye Exam, A1C, uACR) Start: 09-17-2024 Advance Directive Discussion Advance Directive Discussion [facility] Start: 09-17-2024 Medicare Advantage Annual Wellness Visit Medicare [facility] Annual Wellness Visit [facility] Start: 09-03-2024 End: 09-03-2024 Patient encounter procedure 09/03/2024 4:00 PM EST Office Visit [facility] [address] [place], [place] [id number] Kentrell Dhaliwal II, MD [address] [place] [address] [place], [place] [id number] 3 MONTH FOLLOW UP, arthritis and not being able to hold items(Open Gaps: Breast screeing, Diabetic eye Exam, A1C, uACR) [facility] Comment on above: 3 MONTH FOLLOW UP, arthritis and not holland ng able to hold items(Open Gaps: Breast screeing, Diabetic eye Exam, A1C, uACR) Start: 07-24-2024 Annual PCP Team Chronic Disease Visit Annual PCP Team Chronic Disease Visit [facility] Start: 06-11-2024 End: 06-11-2024 Patient encounter procedure 06/11/2024 10:00 AM EDT Office Visit [address] [place], [place] [id number] Kentrell Dhaliwal II, MD [address] [place] [address] [place], [place] [id number] 3 MONTH FOLLOW UP [facility] Comment on above: 3 MONTH FOLLOW UP Start: 05-18-2024 Covid-19 Vaccine ( season) Covid-19 Vaccine ( season) [facility] Start: 05-18-2024 Covid-19 Vaccine ( season) Covid-19 Vaccine ( season) [facility] Start: 05-18-2024 Influenza vaccination [facility] Start: 05-07-2024 End: 05-07-2024 Patient encounter procedure 05/07/2024 9:20 AM EDT Office Visit [address] [place] [address] Kentrell Dhaliwal II, MD [address] [place] [address] [place] [address] 3 MONTH FOLLOW UP [facility] Comment on above: 3 MONTH FOLLOW UP Start: 04-18-2024 ANNUAL PCP TEAM CHRONIC DISEASE VISIT ANNUAL PCP TEAM CHRONIC DISEASE VISIT [facility] Start: 04-09-2024 End: 04-09-2024 Patient encounter procedure 04/09/2024 1:00 PM EDT Office Visit [address] [place] [address] Kentrell Dhaliwal II, MD [address] [place] [address] [address] [place], [place] [id number] 3 MONTH FOLLOW UP [facility] Comment on above: 3 MONTH FOLLOW UP Start: 12-13-2023 [facility] Start: 12-11-2023 Patient discharge [facility] Start: 12-08-2023 Application of intermittent pneumatic compression device [facility] Start: 12-07-2023 Assessment of risk of venous thromboembolism [facility] Start: 12-07-2023 Fall prevention [facility] Start: 12-07-2023 Inhalation therapy procedure [facility] Start: 12-07-2023 Insertion of catheter into peripheral vein [facility] Start: 12-07-2023 Introduction of urinary catheter [facility] Start: 12-07-2023 Measuring intake and output [facility] Start: 12-07-2023 End: 12-07-2023 Patient referral to dietitian [facility] Start: 12-07-2023 Providing care according to standard [facility] Start: 12-07-2023 Provision of activity privileges [facility] Start: 12-07-2023 Referral to general surgeon [facility] Start: 12-07-2023 Referral to occupational therapist [facility] Start: 12-07-2023 Referral to service [facility] Start: 12-07-2023 [facility] Start: 12-07-2023 Hospital admission, emergency, from emergency room, medical nature [facility] Start: 12-07-2023 Prothrombin time [facility] Start: 12-07-2023 Verification routine [facility] Start: 12-07-2023 Admission procedure [facility] Start: 11-24-2023 ANNUAL PCP TEAM CHRONIC DISEASE VISIT ANNUAL PCP TEAM CHRONIC DISEASE VISIT [facility] Start: 09-17-2023 Advance Directive Discussion Advance Directive Discussion [facility] Start: 05-26-2023 Hemoglobin A1c measurement HbA1C [facility] Start: 05-26-2023 Hemoglobin A1c/Hemoglobin.total in Blood HBA1C [facility] Start: 05-18-2023 Covid-19 Vaccine () Covid-19 Vaccine () [facility] Start: 05-18-2023 Influenza vaccination [facility] Start: 04-19-2023 Hepatitis B surface antibody level LDL CHOLESTEROL [facility] Start: 04-01-2023 Bacteria identified in Blood by Culture Blood Culture [facility] Start: 03-31-2023 End: 04-01-2023 Blood culture [facility] Start: 03-25-2023 Blood chemistry [facility] Start: 03-24-2023 Blood chemistry [facility] Start: 03-23-2023 Blood chemistry [facility] Start: 03-22-2023 Blood chemistry [facility] Start: 03-21-2023 Blood chemistry [facility] Start: 03-20-2023 Blood chemistry [facility] Start: 03-19-2023 Blood chemistry [facility] Start: 03-18-2023 Patient discharge [facility] Start: 03-17-2023 [facility] Start: 03-16-2023 [facility] Start: 03-16-2023 Application of intermittent pneumatic compression device [facility] Start: 03-16-2023 Following clinical pathway protocol [facility] Start: 03-16-2023 Assessment of risk of venous thromboembolism [facility] Start: 03-16-2023 Inhalation therapy procedure [facility] Start: 03-16-2023 Insertion of catheter into peripheral vein [facility] Start: 03-16-2023 Insertion of nasogastric tube [facility] Start: 03-16-2023 Introduction of urinary catheter [facility] Start: 03-16-2023 Measuring intake and output [facility] Start: 03-16-2023 Oxygen therapy [facility] Start: 03-16-2023 Providing care according to standard [facility] Start: 03-16-2023 Provision of activity privileges [facility] Start: 03-16-2023 Referral to general surgeon [facility] Start: 03-16-2023 Referral to service [facility] Start: 03-16-2023 [facility] Start: 03-16-2023 Verification routine [facility] Start: 03-16-2023 Admission procedure [facility] Start: 03-16-2023 Consultation [facility] Start: 03-16-2023 Patient referral to dietitian [facility] Start: 02-28-2023 ANNUAL PCP TEAM CHRONIC DISEASE VISIT ANNUAL PCP TEAM CHRONIC DISEASE VISIT [facility] Start: 01-05-2023 ANNUAL PCP TEAM CHRONIC DISEASE VISIT ANNUAL PCP TEAM CHRONIC DISEASE VISIT [facility] Start: 11-23-2022 End: 01-23-2023 Basic metabolic 2000 panel - Serum or Plasma BASIC METABOLIC PNL Lab Routine Hypothyroidism, acquired Type 2 diabetes mellitus without complication, without long-term current use of insulin (HCC) Gastroesophageal reflux disease, unspecified whether esophagitis present Anxiety and depression Elevated liver function tests Expected: 11/23/2022, Expires: 01/23/2023 [facility] Work Phone: Comment on above: Expected: 11/23/2022, Expires: 3 Start: 11-23-2022 End: 01-23-2023 CBC panel - Blood by Automated count CBC Lab Routine Hypothyroidism, acquired Type 2 diabetes mellitus without complication, without long-term current use of insulin (HCC) Gastroesophageal reflux disease, unspecified whether esophagitis present Anxiety and depression Elevated liver function tests Expected: 11/23/2022, Expires: 01/23/2023 [facility] Work Phone: Comment on above: Expected: 11/23/2022, Expires: 3 Start: 11-23-2022 End: 01-23-2023 Hepatic function 2000 panel - Serum or Plasma HEPATIC FUNCTION PNL Lab Routine Hypothyroidism, acquired Type 2 diabetes mellitus without complication, without long-term current use of insulin (HCC) Gastroesophageal reflux disease, unspecified whether esophagitis present Anxiety and depression Elevated liver function tests Expected: 11/23/2022, Expires: 01/23/2023 [facility] Work Phone: Comment on above: Expected: 11/23/2022, Expires: 3 Start: 11-23-2022 End: 01-23-2023 Thyrotropin [Units/volume] in Serum or Plasma TSH BLD Lab Routine Hypothyroidism, acquired Type 2 diabetes mellitus without complication, without long-term current use of insulin (HCC) Gastroesophageal reflux disease, unspecified whether esophagitis present Anxiety and depression Elevated liver function tests Expected: 11/23/2022, Expires: 01/23/2023 [facility] Work Phone: Comment on above: Expected: 11/23/2022, Expires: 3 Start: 09-17-2022 ADVANCE DIRECTIVE DISCUSSION ADVANCE DIRECTIVE DISCUSSION [facility] Start: 08-30-2022 ANNUAL PCP TEAM CHRONIC DISEASE VISIT ANNUAL PCP TEAM CHRONIC DISEASE VISIT [facility] Start: 08-25-2022 Hepatitis B surface antibody level LDL CHOLESTEROL [facility] Start: 05-18-2022 Influenza vaccination INFLUENZA (#1) [facility] Start: 04-19-2022 End: 06-19-2022 Basic metabolic 2000 panel - Serum or Plasma BASIC METABOLIC PNL Lab Routine Gastroesophageal reflux disease, unspecified whether esophagitis present Type 2 diabetes mellitus without complication, without long-term current use of insulin (HCC) Elevated liver function tests Hypothyroidism, acquired Expected: 04/19/2022, Expires: 06/19/2022 [facility] Work Phone: Comment on above: Expected: 04/19/2022, Expires: 2 Start: 04-19-2022 End: 06-19-2022 CBC panel - Blood by Automated count CBC Lab Routine Gastroesophageal reflux disease, unspecified whether esophagitis present Type 2 diabetes mellitus without complication, without long-term current use of insulin (HCC) Elevated liver function tests Hypothyroidism, acquired Expected: 04/19/2022, Expires: 06/19/2022 [facility] Work Phone: Comment on above: Expected: 04/19/2022, Expires: 2 Start: 04-19-2022 End: 06-19-2022 Hepatic function 2000 panel - Serum or Plasma HEPATIC FUNCTION PNL Lab Routine Elevated liver function tests Expected: 04/19/2022, Expires: 06/19/2022 [facility] Work Phone: Comment on above: Expected: 04/19/2022, Expires: 2 Start: 04-19-2022 End: 06-19-2022 Lipid 1996 panel - Serum or Plasma LIPID PANEL BASIC Lab Routine Gastroesophageal reflux disease, unspecified whether esophagitis present Type 2 diabetes mellitus without complication, without long-term current use of insulin (HCC) Elevated liver function tests Hypothyroidism, acquired Expected: 04/19/2022, Expires: 06/19/2022 [facility] Work Phone: Comment on above: Expected: 04/19/2022, Expires: 2 Start: 04-19-2022 End: 06-19-2022 Thyrotropin [Units/volume] in Serum or Plasma TSH BLD Lab Routine Gastroesophageal reflux disease, unspecified whether esophagitis present Type 2 diabetes mellitus without complication, without long-term current use of insulin (HCC) Elevated liver function tests Hypothyroidism, acquired Expected: 04/19/2022, Expires: 06/19/2022 [facility] Work Phone: Comment on above: Expected: 04/19/2022, Expires: 2 Start: 11-15-2021 Hemoglobin A1c/Hemoglobin.total in Blood HBA1C [facility] Start: 11-14-2021 COVID-19 VACCINE (4 - Booster for Moderna series) COVID-19 VACCINE (4 - Booster for Moderna series) [facility] Start: 09-17-2021 ADVANCE DIRECTIVE DISCUSSION ADVANCE DIRECTIVE DISCUSSION [facility] Start: 09-11-2021 COVID-19 VACCINE (4 - Booster for Moderna series) COVID-19 VACCINE (4 - Booster for Moderna series) [facility] Start: 09-11-2021 COVID-19 VACCINE (4 - Moderna series) COVID-19 VACCINE (4 - Moderna series) [facility] Start: 05-13-2017 Shingrix Vaccine (2 of 3) Shingrix Vaccine (2 of 3) [facility] Start: 2016 BONE DENSITY BONE DENSITY [facility] Start: 2016 Bone Density Screening Bone Density Screening [facility] Start: 2016 PNEUMOVAX AGE 65 AND OVER WITH 5YR LOOKBACK (#1) PNEUMOVAX AGE 65 AND OVER WITH 5YR LOOKBACK (#1) [facility] Start: 2016 Screening for osteoporosis Bone Density Screening [facility] Start: 2011 Hepatitis B Vaccine (1 of 3 - Risk 3-dose series) Hepatitis B Vaccine (1 of 3 - Risk 3-dose series) [facility] Start: 2011 RSV Vaccine (1 - 1-dose 60+ series) RSV Vaccine (1 - 1-dose 60+ series) [facility] Start: 11-18-2004 Urine microalbumin profile DTaP,Tdap,Td Vaccine (1 - Tdap) [facility] Start: 2001 SHINGRIX VACCINE (1 of 2) SHINGRIX VACCINE (1 of 2) [facility] Start: 1996 COLOGUARD (FIT-DNA) COLOGUARD (FIT-DNA) [facility] Start: 1996 Colonoscopy COLONOSCOPY [facility] Start: 1996 COLORECTAL CANCER SCREENING COLORECTAL CANCER SCREENING [facility] Start: [address] COLONOGRAPHY [facility] Start: 1996 FECAL OCCULT BLOOD FECAL OCCULT BLOOD [facility] Start: 1996 Screening for malignant neoplasm of colon [facility] Start: 1996 SIGMOIDOSCOPY SIGMOIDOSCOPY [facility] Start: 1991 Mammography [facility] Start: 1991 Screening for malignant neoplasm of breast Mammogram Screening [facility] Start: 1970 Urine microalbumin profile [facility] Start: 1969 HEPATITIS C SCREENING HEPATITIS C SCREENING [facility] Start: 1969 Hepatitis C screening Hepatitis C Screening [facility] Start: 1961 3 comp foot exam completed DIABETIC FOOT EXAM [facility] Start: 1961 Diabetic foot examination Diabetic Foot Exam [facility] Start: 1961 Glaucoma screening Dilated Retinal Exam [facility] Start: 1961 Hepatitis B screening URINE ALBUMIN:CREATININE RATIO [facility] Start: 1961 Hepatitis C antibody, confirmatory test DILATED RETINAL EXAM [facility] Start: 1957 Pneumococcal Vaccine: 65+ (1 - PCV) Pneumococcal Vaccine: 65+ (1 - PCV) [facility] Start: 1957 PNEUMOCOCCAL: 65+ (1 - PCV) PNEUMOCOCCAL: 65+ (1 - PCV) [facility] Anion gap measurement [facility] Anion gap measurement [facility] Anion gap measurement [facility] Anion gap measurement [facility] Anion gap measurement [facility] Anion gap measurement [facility] Anion gap measurement [facility] Bacteria identified in Blood by Culture BLOOD CULTURE Microbiology Routine 07/13/2022 11:27 PM EDT [facility] Work Phone: BUN/Creatinine ratio [facility] BUN/Creatinine ratio [facility] BUN/Creatinine ratio [facility] BUN/Creatinine ratio [facility] BUN/Creatinine ratio [facility] BUN/Creatinine ratio [facility] BUN/Creatinine ratio [facility] Calcium [Mass/volume ] in Serum or Plasma [facility] Calcium [Mass/volume ] in Serum or Plasma [facility] Calcium [Mass/volume ] in Serum or Plasma [facility] Calcium [Mass/volume ] in Serum or Plasma [facility] Calcium [Mass/volume ] in Serum or Plasma [facility] Calcium [Mass/volume ] in Serum or Plasma [facility] Calcium [Mass/volume ] in Serum or Plasma [facility] Carbon dioxide, tota l [Moles/volume] in Serum or Plasma [facility] Carbon dioxide, tota l [Moles/volume] in Serum or Plasma [facility] Carbon dioxide, tota l [Moles/volume] in Serum or Plasma [facility] Carbon dioxide, tota l [Moles/volume] in Serum or Plasma [facility] Carbon dioxide, tota l [Moles/volume] in Serum or Plasma [facility] Carbon dioxide, tota l [Moles/volume] in Serum or Plasma [facility] Carbon dioxide, tota l [Moles/volume] in Serum or Plasma [facility] Chloride [Moles/volu me] in Serum or Plasma [facility] Chloride [Moles/volu me] in Serum or Plasma [facility] Chloride [Moles/volu me] in Serum or Plasma [facility] Chloride [Moles/volu me] in Serum or Plasma [facility] Chloride [Moles/volu me] in Serum or Plasma [facility] Chloride [Moles/volu me] in Serum or Plasma [facility] Chloride [Moles/volu me] in Serum or Plasma [facility] Creatinine [Moles/vo lume] in Serum or Plasma [facility] Creatinine [Moles/vo lume] in Serum or Plasma [facility] Creatinine [Moles/vo lume] in Serum or Plasma [facility] Creatinine [Moles/vo lume] in Serum or Plasma [facility] Creatinine [Moles/vo lume] in Serum or Plasma [facility] Creatinine [Moles/vo lume] in Serum or Plasma [facility] Creatinine [Moles/vo lume] in Serum or Plasma [facility] End: 01-04-2023 Ct abdomen & pelvis w/contrast material CT ABD/PEL W IVCON Radiology Routine Adverse effect of treatment, initial encounter Peritoneal abscess (HCC) 1 Occurrences starting 12/05/2021 until 01/04/2023 [facility] Work Phone: Comment on above: 1 Occurrences starting 12/05/2021 until 01/04/2023 End: 03-05-2026 Echocardiography ECHO Cardiology Routine CHAVARRIA (dyspnea on exertion) Palpitations 1 Occurrences starting 03/05/2025 until 03/05/2026 [facility] Comment on above: 1 Occurrences starting 03/05/2025 until 03/05/2026 Gastrointestinal pathogens panel - Stool by RENATA with probe detection [facility] Glucose [Mass/volume ] in Serum or Plasma [facility] Glucose [Mass/volume ] in Serum or Plasma [facility] Glucose [Mass/volume ] in Serum or Plasma [facility] Glucose [Mass/volume ] in Serum or Plasma [facility] Glucose [Mass/volume ] in Serum or Plasma [facility] Glucose [Mass/volume ] in Serum or Plasma [facility] Glucose [Mass/volume ] in Serum or Plasma [facility] Hematocrit [Volume Fraction] of Blood [facility] Hematocrit [Volume Fraction] of Blood [facility] Hematocrit [Volume Fraction] of Blood [facility] Hematocrit [Volume Fraction] of Blood [facility] Hemoglobin [Mass/vol ume] in Blood [facility] Hemoglobin [Mass/vol ume] in Blood [facility] Hemoglobin [Mass/vol ume] in Blood [facility] Hemoglobin [Mass/vol ume] in Blood [facility] End: 11-16-2023 Hemoglobin A1c in Blood HGB A1C Lab Routine Hypothyroidism, acquired Type 2 diabetes mellitus without complication, without long-term current use of insulin (HCC) Gastroesophageal reflux disease, unspecified whether esophagitis present Anxiety and depression Elevated liver function tests Every 3 months for 4 Occurrences starting 11/23/2022 until 11/16/2023 [facility] Work Phone: Comment on above: Every 3 months for 4 Occurrences startin g 11/23/2022 until 11/16/2023 INR in Blood by Coagulation assay [facility] End: 02-26-2026 Iron and Iron binding capacity [...] for 4 Occurrences starting 02/26/2025 until 02/26/2026 [facility] Comment on above: Every 3 months for [...] protein-calorie malnutrition (HCC) 02/26/2025 11:26 AM EDT [facility] Leukocytes [#/volume ] in Blood [facility] Leukocytes [#/volume ] in Blood [facility] Leukocytes [#/volume ] in Blood [facility] Leukocytes [#/volume ] in Blood [facility] Magnesium [Mass/volu me] in Serum or Plasma [facility] Mean corpuscular hemoglobin concentration determination [facility] Mean corpuscular hemoglobin concentration determination [facility] Mean corpuscular hemoglobin concentration determination [facility] Mean corpuscular hemoglobin concentration determination [facility] Mean corpuscular hemoglobin determination [facility] Mean corpuscular hemoglobin determination [facility] Mean corpuscular hemoglobin determination [facility] Mean corpuscular hemoglobin determination [facility] Measurement of renal function [facility] Measurement of renal function [facility] Measurement of renal function [facility] Measurement of renal function [facility] Measurement of renal function [facility] Measurement of renal function [facility] Measurement of renal function [facility] Neutrophil count [facility] Neutrophil count [facility] Neutrophil count [facility] Neutrophil count [facility] Neutrophil percent differential count [facility] Neutrophil percent differential count [facility] Neutrophil percent differential count [facility] Neutrophil percent differential count [facility] Patient Education [facility] Work Phone: Patient referral [facility] Work Phone: Platelets [#/volume] in Blood [facility] Platelets [#/volume] in Blood [facility] Platelets [#/volume] in Blood [facility] Platelets [#/volume] in Blood [facility] Potassium [Moles/vol ume] in Serum or Plasma [facility] Potassium [Moles/vol ume] in Serum or Plasma [facility] Potassium [Moles/vol ume] in Serum or Plasma [facility] Potassium [Moles/vol ume] in Serum or Plasma [facility] Potassium [Moles/vol ume] in Serum or Plasma [facility] Potassium [Moles/vol ume] in Serum or Plasma [facility] Potassium [Moles/vol ume] in Serum or Plasma [facility] End: 08-20-2023 Radiologic exam abdomen 2 views XR ABDOMEN 2V ROUTINE SUPINE W UPRIGHT/DECUB/CTL Radiology Routine LLQ abdominal pain Partial small bowel obstruction (HCC) 1 Occurrences starting 07/21/2022 until 08/20/2023 [facility] Work Phone: Comment on above: 1 Occurrences starting 07/21/2022 until 08/20/2023 Radiologic exam abdo men 2 views XR ABDOMEN 2V ROUTINE SUPINE W UPRIGHT/DECUB/CTL Radiology Routine LLQ abdominal pain Partial small bowel obstruction (HCC) 07/21/2022 3:37 PM EDT [facility] Work Phone: Radiologic exam ches t 2 views XR CHEST 2V FRONTAL/LAT Radiology Routine Generalized weakness SOB (shortness of breath) CHAVARRIA (dyspnea on exertion) Fatigue, unspecified type 07/24/2023 3:39 PM EST [facility] Work Phone: End: 01-26-2023 Radiologic exam small int single contrast study XR SMALL BOWEL SERIES Radiology Routine History of small bowel obstruction Abdominal pain, unspecified abdominal location 1 Occurrences starting 12/27/2021 until 01/26/2023 [facility] Work Phone: Comment on above: 1 Occurrences starting 12/27/2021 until 01/26/2023 Red blood cell count [facility] Red blood cell count [facility] Red blood cell count [facility] Red blood cell count [facility] Red cell distributio n width determination [facility] Red cell distributio n width determination [facility] Red cell distributio n width determination [facility] Red cell distributio n width determination [facility] Respiratory pathogen s DNA and RNA panel - Respiratory specimen by RENATA with probe detection [facility] Serum inorganic phos phate measurement [facility] Sodium [Moles/volume ] in Serum or Plasma [facility] Sodium [Moles/volume ] in Serum or Plasma [facility] Sodium [Moles/volume ] in Serum or Plasma [facility] Sodium [Moles/volume ] in Serum or Plasma [facility] Sodium [Moles/volume ] in Serum or Plasma [facility] Sodium [Moles/volume ] in Serum or Plasma [facility] Sodium [Moles/volume ] in Serum or Plasma [facility] Urea nitrogen [Mass/volume] in Serum or Plasma [facility] Urea nitrogen [Mass/volume] in Serum or Plasma [facility] Urea nitrogen [Mass/volume] in Serum or Plasma [facility] Urea nitrogen [Mass/volume] in Serum or Plasma [facility] Urea nitrogen [Mass/volume] in Serum or Plasma [facility] Urea nitrogen [Mass/volume] in Serum or Plasma [facility] Urea nitrogen [Mass/volume] in Serum or Plasma [facility] End: 02-05-2023 Us abdominal real time w/image documentation US ABDOMEN COMPLETE Radiology Routine Generalized abdominal pain Elevated liver function tests 1 Occurrences starting 01/06/2022 until 02/05/2023 [facility] Work Phone: Comment on above: 1 Occurrences starting 01/06/2022 until 02/05/2023 End: 03-05-2026 US Carotid arteries - bilateral US CAROTID ARTERIES [facility] V[facility] Lab Routine Vertigo 1 Occurrences starting 03/05/2025 until 03/05/2026 [facility] Work Phone: Comment on above: 1 Occurrences starting 03/05/2025 until 03/05/2026 [facility] Immunizations Immunization Date Immunization Notes Care Provider [facility] 07-27-2021 influenza virus vacc ine, unspecified formulation Kentrell Dhaliwal II, MD Work Phone: [facility] 07-27-2020 influenza, high-dose , quadrivalent vaccine (FLUZONE HIGH DOSE QUADRIVALENT) Jaswant Moseley MD Work Phone: [facility] Payers Date Payer Category Payer Self-pay 2021 Medicare (Managed Care) 1.2. [id number] 2021 Private Health Insurance [id number] 2020 Medicare HUMANA MEDICARE HUMANA GOLD PLUS [id number] 2020-Present [phone] [address] [address] [place] [address] O [id number] 2020 Medicare [id number] Unknown [id number] 2.0.1.270632.3.579. 2.283 Unknown [id number] 2.840.1.274317.3.579. 2.283 Unknown [id number] 2.16.840.1.555711.3.579. 2.283 Unknown [id number] 2.16.840.1.419653.3.579. 2.283 Unknown [id number] 2.16.840.1.591317.3.579. 2.283 Unknown [id number] 2.16.840.1.036073.3.579. 2.283 Unknown [id number] 2.16.840.1.765810.3.579. 2.283 Unknown [id number] 2.16.840.1.350071.3.579. 2.283 Unknown [id number] 2.16.840.1.244986.3.579. 2.283 Unknown [id number] 2.16.840.1.061690.3.579. 2.462 Unknown [id number] 2.16.840.1.499098.3.579. 2.462 Unknown [id number] 2.16.840.1.402753.3.579. 2.462 Unknown [id number] 2.16.840.1.077688.3.579. 2.462 Unknown [id number] 2.16.840.1.025034.3.579. 2.462 Unknown [id number] 2.16.840.1.001922.3.579. 2.462 Unknown [id number] 2.16.840.1.865968.3.579. 2.462 Unknown [id number] 2.16.840.1.201849.3.579. 2.462 Unknown [id number] 2.16.840.1.073710.3.579. 2.462 Unknown [id number] 2.16.840.1.844783.3.579. 2.462 Unknown [id number] 2.16.840.1.510636.3.579. 2.462 Unknown [id number] 2.16.840.1.487727.3.579. 2.462 Unknown [id number] 2.16.840.1.424012.3.579. 2.462 Social History Date Type Detail Facility Start: 06-22-2020 End: 07-21-2022 Tobacco smoking status NHIS Never smoked tobacco [facility] Start: 06-22-2020 End: 07-21-2022 Tobacco use and exposure Smokeless tobacco non-user [facility] Start: 08-30-2021 End: 03-15-2025 Alcohol intake Ex-drinker (finding) [facility] Start: 10-28-2020 History SDOH Housing Unable to Pay 3 [facility] Start: 10-28-2020 Education 16 [facility] Start: 1950 Sex Assigned At Not on file [facility] Start: 11-25-2021 End: 08-02-2022 Exposure to SARS-CoV-2 (event) Not sure [facility] Start: 12-11-2022 End: 12-13-2023 Tobacco smoking status NHIS Unknown if ever smoked [facility] Start: 1950 Sex Assigned At Female [facility] Start: 03-19-2023 History SDOH Financial 5 [facility] Start: 03-19-2023 History SDOH Food Worry 1 [facility] Start: 03-19-2023 History SDOH Transpo rt Med 2 [facility] Start: 10-28-2020 End: 06-11-2024 History of Social function [facility] Start: 10-28-2020 End: 06-11-2024 Social connection and isolation panel [facility] In a typical week, h ow many times do you talk on the telephone with family, friends, or neighbors? Patient refused [facility] Are you now , , , , never or living with a partner? Refused [facility] (I/We) worried wheth er (my/our) food would run out before (I/we) got money to buy more. Never true [facility] Work Phone: In the past 12 month s, was there a time when you were not able to pay the mortgage or rent on time? No [facility] Work Phone: (I/We) worried wheth er (my/our) food would run out before (I/we) got money to buy more. DK or Refused [facility] Goals Date Patient Goal Desired Activity /State [...] Assessment Result Facility 12-11-2023 Functional status Ambulates [facility] Work Phone: 04-05-2023 Are you deaf, or do you have serious difficulty hearing No 04/05/2023 10:00 AM Edgar Duckworth, DAVID No [facility] 04-05-2023 Are you blind, or do you have serious difficulty seeing, even when wearing glasses No 04/05/2023 10:00 AM Edgar Duckworth, DAVID No [facility] 04-05-2023 Do you have serious difficulty walking or climbing stairs No 04/05/2023 10:00 AM Edgar Duckworth, DAVID No [facility] 04-05-2023 Do you have difficul ty dressing or bathing No 04/05/2023 10:00 AM Edgar Duckworth, DAVID No [facility] 04-05-2023 Because of a physica l, mental, or emotional condition, do you have difficulty doing errands alone such as visiting a physician's office or shopping No 04/05/2023 10:00 AM Edgar Duckworth, DAVID No [facility] 03-18-2023 Functional status Ambulates;Bedrest [facility] Work Phone: Mental Status Date Assessment Result Facility 12-11-2023 Cognitive function Voice/Name [facility] Work Phone: 04-05-2023 Because of a physica l, mental, or emotional condition, do you have serious difficulty concentrating, remembering, or making decisions No 04/05/2023 10:00 AM Edgar Duckworth, RN No [facility] 03-18-2023 Cognitive function Voice/Name [facility] Work Phone: Clinical Notes 06-22-2020 to 03-31-2025 Telephone Encounter - Husam Grant MA - 03/31/2025 10:33 AM EDTTelephone Encounter - Husam Grant MA - 03/31/2025 10:33 AM LISSETHTKentrell Dhaliwal II, MD - 03/15/2025 10:31 PM EDT Note Date & Type Note Facility 03-31-2025 Telephone encounter Note US showed <50 % stenosis to bilateral carotid arteries. Will continue to monitor this. Will repeat in 1 year. - Malcolm Salas Called patient and informed of malcolm message. Patient stated ok and thank you. Husam Grant MA [facility] 03-31-2025 Miscellaneous Notes US showed <50 % stenosis to bilateral carotid arteries. Will continue to monitor this. Will repeat in 1 year. - Malcolm Salas Called patient and informed of malcolm message. Patient stated ok and thank you. Husam Grant MA Patient called in regards US on her carotids. Patient is wondering what her results are? Please advise Husam Grant MA documented in this encounter [facility] 03-31-2025 Telephone encounter Note Patient will be [...] Grant MA March 31, 2025 9:17 AM [facility] 03-31-2025 Telephone encounter Note Patient called in regards US on her carotids. Patient is wondering what her results are? Please advise Husam Grant MA [facility] 03-31-2025 Miscellaneous Notes Patient will be out [...] 2025 9:17 AM documented in this encounter [facility] 03-15-2025 Note HNO ID: [id number] Author: KENTRELL DHALIWAL II, MD Service: ? Author Type: Physician Type: Progress Notes Filed: 03/15/2025 22:37 Note Text: Kentrell Dhaliwal II, MD [place] [id number] SUBJECTIVE Adina Escobar is a 74 year old female [...] Prednisone GI Upset - Propoxyphene Unknown - Nerylcx-Hud-Hxk Red* Diarrhea, Intolerance - Sulfa (Sulfonamide * [...] mouth once d (more content not included)... [facility] 03-15-2025 History of Presen t illness Narrative Images from the original note were not included. Kentrell Dhaliwal II, [place] [address] SUBJECTIVE Adina Escobar is a 74 year old female [...] [Cefdinir] Diarrhea Prednisone GI Upset Propoxyphene Unknown Uhhkrdp-Qgb-Mps Red* Diarrhea, Intolerance Sulfa (Sulfonamide * Other: [...] Dhaliwal II, M.D. documented in this encounter [facility] 03-13-2025 Note HNO ID: [id number] Author: ?, ?, ? Service: ? Author [...] Marie DING March 13, 2025 10:23 AM [facility] 03-13-2025 History of Presen t illness Narrative POPULATION HEALTH NAVIGATION OUTREACH Action/FY Patient needs 2024 Wellness, Mammogram, Colon screening, [...] 2025 10:23 AM documented in this encounter [facility] 03-13-2025 Note Patient Outreach (NE TNAV) ADINA ESCOBAR I ([id number]) 1950 F Date Time Provider Department 03/13/25 [...] Updated appointment notes Navigation Signature: Ann Marie Pito NRA March 13, 2025 10:23 AM Allergies [...] GI Upset PROPOXYPHENE 06/23/2015 16 - Unknown RQHMWBG-KII-[id number] REDUCTASE INHIBIT*06/22/2020 6 - Diarrhea 5 - Intolerance SULFA (SULFONAMIDE ANTIBIOTICS) 06/15/2020 14 - Other: See Comments Comments: Leg pain SHELL[employer] PRODUCTS 11/29/2012 7 - Swelling Date Reviewed: 03/05/2025 Reviewed by: Husam Grant MA - Fully Assessed Reason for Visit: Population Health Navigation Outreach [3910] Cmt: [facility] Prescriptions as of 03/13/2025 - albuterol [...] Status:Closed by ANN MARIE CARDONA on 03/13/25 [facility] 03-03-2025 Telephone encounter Note Prescription Refill Information The patient has been identified by name and date of : Yes Caregiver verified no other encounters exist for this prescription request: Yes Caregiver confirmed with patient/requestor that no other refills are due, in the near future, with this provider at this time: Yes The last office visit in the department: [id number] Does the patient have a future office visit with this provider/department: Yes Requested Prescriptions Pending Prescriptions Disp Refills busPIRone (BUSPAR) 15 mg tablet 30 tablet 5 Sig: Take 0.5 tablets by mouth two times a day. Charity Wise March 03, 2025 9:04 AM [facility] 03-03-2025 Miscellaneous Notes Prescription Refill Information The patient has been identified by name and date of : Yes Caregiver verified no other encounters exist for this prescription request: Yes Caregiver confirmed with patient/requestor that no other refills are due, in the near future, with this provider at this time: Yes The last office visit in the department: [id number] Does the patient have a future office visit with this provider/department: Yes Requested Prescriptions Pending Prescriptions Disp Refills busPIRone (BUSPAR) 15 mg tablet 30 tablet 5 Sig: Take 0.5 tablets by mouth two times a day. Charity Wise March 03, 2025 9:04 AM documented in this encounter [facility] 03-02-2025 Telephone encounter Note Scheduled patient for 03/05/2025 at [address] [place] per Dr Sergio Grant MA [facility] 03-02-2025 Miscellaneous Notes Scheduled patient for 03/05/2025 at [address] [place] per [address] Sergio Grant MA Called patient however no answer. [...] No Protocols used: Heart Rate and Heartbeat [id number] Patient calls the office today and states that she has had three episodes of her heart racing and breaks out in a sweat and gets dizzy. She sits down and it goes away. The second time she was doing nothing and it happened. The third time was last week. Please advise Thank you [phone] Sent to our carrier clinic nurse pool documented in this encounter [facility] 03-02-2025 Telephone encounter Note Called patient however no answer. Left message informing patient to call office back. Patient can be scheduled on 03/05/2025 at 1120, 1300, or 1600. Also forwarding message to Dr Dhaliwal to see what he would like to do. See encounter from [place]. What does Dr Dhaliwal want to do? Please advise Husam Grant MA [facility] 03-02-[address] Dhaliwal has no open appointments. [facility] 03-02-2025 Telephone encounter Note Reason for Disposition [...] No Protocols used: Heart Rate and Heartbeat Aanquoeqc-[id number] [facility] 03-02-2025 Telephone encounter Note Patient calls the office today and states that she has had three episodes of her heart racing and breaks out in a sweat and gets dizzy. She sits down and it goes away. The second time she was doing nothing and it happened. The third time was last week. Please advise Thank you [phone] Sent to our carrier clinic nurse pool [facility] Work Phone: 03-02-2025 Telephone encounter Note Patient [...] on her xanax. Please advise Thank you [phone] (home) [phone] (fast) Patient last appointment: 09/26/2024 Jasmin Garza [facility] Work Phone: 03-02-2025 Miscellaneous Notes Patient calls [...] on her xanax. Please advise Thank you [phone] (home) [phone] (cell) Patient last appointment: 09/26/2024 Jasmin Garza documented in this encounter [facility] 02-27-2025 Telephone encounter Note ----- Message from Kentrell Dhaliwal MD sent at 02/26/2025 11:12 PM EDT ----- Labs are acceptable ranges without significant abnormality that would likely cause the symptoms she is having.. [facility] 02-27-2025 Miscellaneous Notes ----- Message from Kentrell Dhaliwal MD sent at 02/26/2025 11:12 PM EDT ----- Labs are acceptable ranges without significant abnormality that would likely cause the symptoms she is having.. documented in this encounter [facility] 02-26-2025 Telephone encounter Note Patient returned call to the office and states that she will go to an urgent care closer to her. Also thanked Dr Dhaliwal for putting the order in and will go to a [facility] facility for blood work Thank you [facility] Work Phone: 02-26-2025 Miscellaneous Notes Patient returned [...] closer to home since she lives in [place]! Patient called and would like to know if you can work her in for fatigue? She didn't know if she needs her iron or labs done to see why she's exhausted all of the time. She also said she get short winded. Please advise. Thank you. Patient last appointment:09/26/2024 (home) [phone] (cell) Maximo Cast documented in this encounter [facility] 02-26-2025 Telephone encounter Note Left message on voicemail for patient to return our call. Phone number provided. [facility] 02-26-2025 Telephone encounter Note She should go wherever is most convenient for her I can print an order for labs if she wants to go to a [facility] facility [facility] 02-26-2025 Telephone encounter Note Spoke with patient [...] closer to home since she lives in [place]! [facility] 02-26-2025 Telephone encounter Note Patient called and would like to know if you can work her in for fatigue? She didn't know if she needs her iron or labs done to see why she's exhausted all of the time. She also said she get short winded. Please advise. Thank you. Patient last appointment:09/26/2024 (home) [phone] (cell) Maximo Cast [facility] Work Phone: 02-18-2025 Telephone encounter Note [...] Dykes MA February 18, 2025 10:20 AM [facility] 02-18-2025 Miscellaneous Notes Prescription Refill Information [...] 2025 10:20 AM documented in this encounter [facility] 01-29-2025 Telephone encounter Note When patient returns call, can you please verify what number she is calling and leaving the requests for refills on? Since she states that she has called and left multiple requests we need to verify where she is calling. Thanks Rogers Puri MA [facility] 01-29-2025 Miscellaneous Notes When patient returns call, can you please verify what number she is calling and leaving the requests for refills on? Since she states that she has called and left multiple requests we need to verify where she is calling. Thanks Rogers Puri MA Left message for pt to [...] be sent to pharmacy today Thank you [phone] (home) [phone] (cell) Patient last appointment: 09/26/2024 Kavya Argueta documented in this encounter [facility] 01-29-2025 Telephone encounter Note Left message for pt to return the call, number provided [facility] 01-29-2025 Telephone encounter Note This is the first refill request I have gotten. Rx sent to the pharmacy. [facility] 01-29-2025 Telephone encounter Note Please advise [facility] 01-29-2025 Telephone encounter Note Patients daughter along with patient called today. Reason for Call: patient left 3 messages requesting refill for Xanax and has been out for 4 days now. Patient hasn't been able to sleep and anxiety is getting bad. Requesting script be sent to pharmacy today Thank you [phone] (home) [phone] (cell) Patient last appointment: 09/26/2024 Kavya Argueta [facility] Work Phone: 01-08-2025 Note HNO ID: [id number] Author: KENTRELL DHALIWAL II, MD Service: ? Author Type: Physician Type: Progress Notes Filed: 01/08/2025 17:50 Note Text: Kentrell Dhaliwal II, MD [place] [id number] SUBJECTIVE Adina Escobar is a 74 year old female [...] [Cefdinir] Diarrhea Prednisone GI Upset Propoxyphene Unknown Kdnowhu-Urw-Drg Red* Diarrhea, Intolerance Sulfa (Sulfonamide * Other: [...] day. hyoscyamine S (more content not included)... [facility] 01-01-2025 Telephone encounter Note Prescription Refill [...] as needed for up to 90 days. Abigail Rodriguez MA January 01, 2025 3:41 PM [facility] 01-01-2025 Miscellaneous Notes Prescription Refill Information The [...] as needed for up to 90 days. Abigail Rodriguez MA January 01, 2025 3:41 PM documented in this encounter [facility] 12-25-2024 Telephone encounter Note Prescription Refill Information [...] 1 mg tablet Sig: Take by mouth. Abigail Rodriguez MA December 25, 2024 5:10 PM [facility] 12-25-2024 Miscellaneous Notes Prescription Refill Information The [...] 1 mg tablet Sig: Take by mouth. Abigail Rodriguez MA December 25, 2024 5:10 PM documented in this encounter [facility] 12-10-2024 Telephone encounter Note Refills were sent [facility] 12-10-2024 Miscellaneous Notes Refills were sent Left message for patient to call. Phone number was provided. Patient left message on refill line, please verify what medication patient was needing documented in this encounter [facility] 12-09-2024 Telephone encounter Note Prescription Refill Information [...] Toscano MA December 09, 2024 11:12 AM [facility] 12-09-2024 Miscellaneous Notes Prescription Refill Information The [...] 2024 11:12 AM documented in this encounter [facility] 12-09-2024 Telephone encounter Note Prescription Refill Information [...] Dykes MA December 09, 2024 8:06 AM [facility] 12-09-2024 Miscellaneous Notes Prescription Refill Information The [...] 2024 8:06 AM documented in this encounter [facility] 12-08-2024 Telephone encounter Note Left message for patient to call. Phone number was provided. Patient left message on refill line, please verify what medication patient was needing [facility] 11-28-2024 Telephone encounter Note Patient called in today. She said that she has a cough and phlegm in her throat. I advised her she could use the walk in clinic or go to stat care. She did make an appointment as well to see Dr. Dhaliwal. [facility] 11-28-2024 Miscellaneous Notes Patient called in today. She said that she has a cough and phlegm in her throat. I advised her she could use the walk in clinic or go to stat care. She did make an appointment as well to see Dr. Dhaliwal. documented in this encounter [facility] 11-24-2024 Telephone encounter Note Prescription Refill Information [...] Brandt MA November 24, 2024 4:00 PM [facility] 11-24-2024 Miscellaneous Notes Prescription Refill Information The [...] 2024 4:00 PM documented in this encounter [facility] 11-10-2024 Telephone encounter Note Prescription Refill Information [...] Brandt MA November 10, 2024 11:19 AM [facility] 11-10-2024 Miscellaneous Notes Prescription Refill Information The [...] 2024 11:19 AM documented in this encounter [facility] 10-28-2024 Telephone encounter Note Prescription Refill Information [...] Perla Meneses October 28, 2024 10:07 AM [facility] 10-28-2024 Miscellaneous Notes Prescription Refill Information The [...] 2024 10:07 AM documented in this encounter [facility] 10-17-2024 Note HNO ID: [id number] Author: GERTRUDE MCCLOUD RN Service: ? Author Type: Registered Nurse Type: Progress Notes Filed: 10/17/2024 10:30 Note Text: TRANSITION CARE MANAGEMENT (TCM) FOLLOW-UP NOTE Provider Action/FYI Attempt to contact patient for update Patient identified by name and date of : n/a, patient did not answer Spoke to : n/a, left message Discharge Network Status: Ygl-qf-Vfdzuaa (OON) Discharge Summary: Patient admitted to [facility] for abd pain, bile duct obstruction and discharged on 09/17/24. F/u with PCP completed since discharge. Concerns: Left message for patient to call if any new questions or concerns. Stitching Machine Operator plan for next outreach: Left message making final post hospital DC outreach call. Please feel free to return my call if questions or concerns. Will graduate from further outreach calls as pt has not had any further ER visits or hospitalizations. Gertrude Mccloud RN October 17, 2024 10:26 AM [facility] 10-17-2024 History of Presen t illness Narrative TRANSITION CARE MANAGEMENT (TCM) FOLLOW-UP NOTE Provider Action/FYI Attempt to contact patient for update Patient identified by name and date of : n/a, patient did not answer Spoke to : n/a, left message Discharge Network Status: Lld-dy-Iyupfhv (OON) Discharge Summary: Patient admitted to [facility] for abd pain, bile duct obstruction and discharged on 09/17/24. F/u with PCP completed since discharge. Concerns: Left message for patient to call if any new questions or concerns. Stitching Machine Operator plan for next outreach: Left message making final post hospital DC outreach call. Please feel free to return my call if questions or concerns. Will graduate from further outreach calls as pt has not had any further ER visits or hospitalizations. Gertrude Mccloud RN October 17, 2024 10:26 AM documented in this encounter [facility] 10-17-2024 Note Patient Outreach (IN TMUD) ADINA ESCOBAR I ([id number]) 1950 F Date Time Provider Department 10/17/24 GERTRUDE MCCLOUD INTMUJevon During your visit today, we recorded the following information about you: Gertrude Mccloud RN 10/17/2024 10:30 AM Signed TRANSITION CARE MANAGEMENT (TCM) FOLLOW-UP NOTE Provider Action/FYI Attempt to contact patient for update Patient identified by name and date of : n/a, patient did not answer Spoke to : n/a, left message Discharge Network Status: Mvv-ej-Edtwvoe (OON) Discharge Summary: Patient admitted to [facility] for abd pain, bile duct obstruction and discharged on 09/17/24. F/u with PCP completed since discharge. Concerns: Left message for patient to call if any new questions or concerns. Stitching Machine Operator plan for next outreach: Left message making final post hospital DC outreach call. Please feel free to return my call if questions or concerns. Will graduate from further outreach calls as pt has not had any further ER visits or hospitalizations. Gertrude Mccloud RN October 17, 2024 10:26 AM [...] GI Upset PROPOXYPHENE 06/23/2015 16 - Unknown HUBLTVI-JIK-KZC REDUCTASE INHIBIT*06/22/2020 6 - Diarrhea 5 - [...] tablet by mouth four times daily. - ragnvlqfave-mnojsmtcx-owjqrtsg (TRELEGY ELLIPTA) 100-62.5-25 mcg inhalation powder Inhale [...] 8 hours as needed for nausea/vomiting. - kkzbvtnmma-tgkezqcz-gorbqdpwra (BREZTRI AEROSPHERE) 160-9-4.8 mcg/actuation HFA aerosol inhaler [...] mouth twice daily. (more content not included)... [facility] 10-15-2024 Telephone encounter Note Prescription Refill [...] Wallace MA October 15, 2024 8:05 AM [facility] 10-15-2024 Miscellaneous Notes Prescription Refill Information The [...] 2024 8:05 AM documented in this encounter [facility] 10-07-2024 Telephone encounter Note Prescription Refill Information [...] Grant MA October 07, 2024 2:52 PM [facility] 10-07-2024 Miscellaneous Notes Prescription Refill Information The [...] 2024 2:52 PM documented in this encounter [facility] 09-29-2024 Telephone encounter Note Prescription Refill Information [...] Wallace MA September 29, 2024 8:34 AM [facility] 09-29-2024 Miscellaneous Notes Prescription Refill Information The [...] 2024 8:34 AM documented in this encounter [facility] 09-26-2024 Note HNO ID: [id number] Author: KENTRELL DHALIWAL II, MD Service: ? Author Type: Physician Type: Progress Notes Filed: 09/26/2024 22:24 Note Text: Transitional Care Management TCM Eligibility Documentation Program: Transitional Care Management Status: Enrolled Effective Dates: 09/18/2024 - present Responsible Staff: Gertrude Mccloud RN Discharge date: 09/17/2024 (Program start) Date of initial contact: 09/18/2024 Initial contact Target status: Successful; Contact made within 2 business days post-discharge Summary Discharged from: [facility] Admit Date: 09/14/24 Admitted for: Abdominal pain and biliary obstruction. Kentrell Dhaliwal II, MD Provider Documentation Adina Escobar is a 74 year old female [...] or sooner if needed with an update [facility] 09-26-2024 History of Presen t illness Narrative Transitional Care Management TCM Eligibility Documentation Program: Transitional Care Management Status: Enrolled Effective Dates: 09/18/2024 - present Responsible Staff: Gertrude Mccloud RN Discharge date: 09/17/2024 (Program start) Date of initial contact: 09/18/2024 Initial contact Target status: Successful; Contact made within 2 business days post-discharge Summary Discharged from: [facility] Admit Date: 09/14/24 Admitted for: Abdominal pain and biliary obstruction. Kentrell Dhaliwal II, MD Provider Documentation Adina Escobar is a 74 year old female [...] with an update documented in this encounter [facility] 09-21-2024 Note HNO ID: [id number] Author: KENTRELL DHALIWAL II, MD Service: ? Author Type: Physician Type: Progress Notes Filed: 09/21/2024 15:43 Note Text: Kentrell Dhaliwal II, MD [address], [place] [address] NOEMI Escobar is a 74 year old [...] [Cefdinir] Diarrhea Prednisone GI Upset Propoxyphene Unknown Zeemxbr-Xlf-Vgn Red* Diarrhea, Intolerance Sulfa (Sulfonamide * Other: [...] Take 1 table (more content not included)... [facility] 09-21-2024 History of Presen t illness Narrative Images from the original note were not included. Kentrell Dhaliwal II, MD [address], [place] [address] NOEMI Escobar is a 74 year old [...] [Cefdinir] Diarrhea Prednisone GI Upset Propoxyphene Unknown Gevgkwn-Wmg-Mqb Red* Diarrhea, Intolerance Sulfa (Sulfonamide * Other: [...] as needed for up to 10 days. gcempwyowi-gyxipknn-zvzcgwegkz (BREZTRI AEROSPHERE) 160-9-4.8 mcg/actuation HFA aerosol inhaler [...] Dhaliwal II, M.D. documented in this encounter [facility] 09-18-2024 History of Presen t illness Narrative Initial Contact Transition Care Management (TCM) Initial contact with patient post discharge, spoke to patient. Patient identified by name and . SUMMARY: - Patient discharged from [facility] on 09/17/24. - Follow up appointment on [...] fall prevention. Scheduled GLENNY appt for 09/26/24 Gertrude Mccloud RN documented in this encounter [facility] 09-17-2024 Note [facility] Medical Records Department [address] [place] [address] Discharge Summary 09/17/24 1330 MR#: [id number] Acct: [id number] Name: ADINA ESCOBAR Rep #: [id number] : 1950 74 From: Edmundo Gilliland MD PCP: Dr. Kentrell Dhaliwal MD Status:ADM IN Location: [facility] [id number] Providers Date of Admission: 09/14/24 Date of Discharge: 09/17/24 Primary Care Physician: Dr. Kentrell Dhaliwal MD Consultations 09/14/24 09:29 Consult: Gastroenterology Routine Consulting Provider: [facility] Reason for Consult: Diffuse IHBD, CBD and pancreatic ductal dilatation. EMERGENT Consult: No MD Notified: Yes Date Notified: 09/14/24 Time Notified: 09:15 Method of Notification: Verbal 09/14/24 09:41 Consult: General Surgery Routine Consulting Provider: Paulo Umanzor Reason for Consult: SMALL Bowel ileus, biliary and PD dilation EMERGENT Consult: No MD Notified: Yes Date Notified: 09/14/24 Time Notified: 09:41 Method of Notification: Verbal Reason For Visit: CBD LESION WITH INTRACTABLE ABDOMINAL PAIN Diagnosis Discharge Diagnosis (1) Intractable abdominal pain: Status: Acute Code(s): R10.9 - Unspecified abdominal pain Plan Patient is a 74-year-old lady admitted with worsening abdominal pain radiating to the back. Patient was found to have acute liver injury complicated by intra and extrahepatic biliary dilatation admitted to monitored bed for further management 1. Acute liver injury ??? Complicated by intra and extrahepatic biliary dilatation confirmed on imaging studies. An assessment of ibuprofen induced liver injury was made patient transaminases did improve following discontinuation of offending medications. Patient was also seen in consultation by 2. Small bowel ileus -The patient with previous small bowel resection was seen in consultation by general surgery resolved with IV hydration 3. History of DVT ??? Patient is on Coumadin held on admission in anticipation for possible ERCP. Patient however did not end up with ERCP was discharged home with resumption of her Coumadin dose. Instructed to follow-up with primary care physician for repeat PT/INR for subsequent adjustment of doses if needed 4. Uncontrolled hypertension ??? Patient blood pressure on admission was markedly elevated had resolved at the time of discharge 5. Next depression with anxiety ??? Patient is on bupropion as well as buspirone continue 6. Hypothyroidism ??? Patient is on levothyroxine home dose continued 7. Dyslipidemia ??? Patient apparently has intolerance to statin therapy currently on his Antiminth did continue 8. Mild intermittent asthma ??? Not in exacerbation aerosol treatment as needed 9. Chronic kidney disease stage IIIa kidney function at baseline 10. Restless leg syndrome ??? Patient is on ropinirole 11. Anemia ??? Secondary to chronic disorder monitoring H H and transfuse if patient becomes symptomatic or hemoglobin falls below 7 Medications at Discharge Home Medications alprazolam 1 mg tablet (Xanax) 1 mg PO BID anxiety 12/11/22 bupropion HCl 150 mg 24 hr tablet, extended release 150 mg PO BID mental health 12/11/22 esomeprazole magnesium 20 mg capsule,delayed release 20 mg PO DAILY reflux 12/11/22 ezetimibe 10 mg tablet 10 mg PO DAILY cholesterol 12/11/22 levothyroxine 50 mcg tablet 50 mcg PO DAILY thyroid 12/11/22 zolpidem 10 mg tablet (Ambien) 10 mg PO QHS sleep 12/11/22 docusate sodium 100 mg capsule 100 mg PO BID stool softner 03/31/23 budesonide 160 mcg-glycopyr 9 mcg-formot 4.8 mcg/actuation HFA inhaler (Breztri Aerosphere) 2 inh inhalation BID breathing 12/06/23 buspirone 15 mg tablet 7.5 mg PO BID mental health 12/06/23 polyethylene glycol 3350 17 gram/dose oral powder (Miralax) 17 g PO BID bowels 12/06/23 ropinirole 0.5 mg tablet 0.5 mg PO BID restless legs 12/06/23 warfarin 5 mg tablet 5 mg PO DAILY blood thinner 12/06/23 ondansetron HCl 4 mg tablet 4 mg PO Q6H PRN Nausea #10 tabs 12/13/23 furosemide 20 mg tablet 20 mg PO DAILY 09/14/24 tramadol 50 mg tablet 50 mg PO Q6H PRN PRN pain 09/14/24 Hospital Course Summary of Care Provided Minutes Spent on Discharge: 35 Physical Exam Narrative GENERAL: cooperative HEENT: Atraumatic; normocephalic EYES; Anicteric, Normal Conjunctiva NECK; supple, normal thyroid, RESPIRATORY: Diminished to auscultation CARDIOVASCULAR: Regular S1 S2, GI: soft, normoactive bowel sounds, : No Renal angle tenderness; EXTREMITIES: No edema, no clubbing, MUSCULOSKELETAL: no muscle wasting NEURO: Awake; no lateralizing signs. SKIN: No Rash PSYCH; Flat affect Weight / BMI Weight Weight: 67.1 kg Body Mass Index (BMI) 27.9 ABG / Lab / Microbiology Data 09/17/24 03:46 09/17/24 03:46 Laboratory: Laboratory Results - last 24 hr 0 (more content not included)... [facility] 09-12-2024 Telephone encounter Note Rx sent [facility] 09-12-2024 Miscellaneous Notes Rx sent Patient calls She said her left ear is painful. No seeping. No fever. Started today. She asked if something can be sent in. Thank you. [phone] documented in this encounter [facility] 09-11-2024 Telephone encounter Note Patient calls She said her left ear is painful. No seeping. No fever. Started today. She asked if something can be sent in. Thank you. [phone] [facility] 09-09-2024 Telephone encounter Note Prescription Refill Information [...] Wallace MA September 09, 2024 8:29 AM [facility] 09-09-2024 Miscellaneous Notes Prescription Refill Information The [...] 2024 8:29 AM documented in this encounter [facility] 08-28-2024 Telephone encounter Note Patient calls today. Reason for Call: Adina called requesting a refill on alprazolam. She uses [facility] in [place] [phone] (home) [phone] (cell) Patient last appointment: 08/19/2024 Mari Platt [facility] 08-28-2024 Miscellaneous Notes Patient calls today. Reason for Call: Adina called requesting a refill on alprazolam. She uses [facility] in [place] [phone] (home) [phone] (cell) Patient last appointment: 08/19/2024 Mari Platt documented in this encounter [facility] 08-19-2024 Telephone encounter Note Faxed surgical clearance form to [facility]. Husam Grant MA [facility] 08-19-2024 Miscellaneous Notes Faxed surgical clearance form to [facility]. Husam Grant MA Patient is having 8/9 more teeth extracted. Form received requesting protocol on warfarin for the 8/9 more teeth extractions. Form put on Dr Sergio landis. Sorry that they are requesting new form [...] the form be completed? Dr Dhaliwal Summary: [facility] - MEDICAL [facility] CALLED TO MENTION THAT PATIENT IS WISHING TO BE SCHEDULED FOR DENTAL PROCEDURE BY WEEK'S END. HER DENTIST WILL BE LEAVING BY WEEK'S END PATIENT WILL HAVE TO BE OFF BLOOD THINNERS VERY SOON IN ORDER TO BE SCHEDULED BEFORE HER DENTIST LEAVES. ASKING IF OFFICE CAN CALL [phone], OPTION 2 (ASK FOR BRISTON) TO ADVISE WHEN MEDICAL RELEASE PAPERWORK IS READY TO BE FAXED SO THAT PATIENT CAN BE SCHEDULED THANK YOU Patience Choi documented in this encounter [facility] 08-19-2024 Telephone encounter Note Patient is having 8/9 more teeth extracted. Form received requesting protocol on warfarin for the 8/9 more teeth extractions. Form put on Dr Dhaliwal desk. Sorry that they are requesting new form for extracting more teeth. Husam Grant MA [facility] 08-19-2024 Telephone encounter Note She can stop [...] request the form be completed? Dr Dhaliwal [facility] 08-19-2024 Telephone encounter Note Summary: [facility] - MEDICAL [facility] CALLED TO MENTION THAT PATIENT IS WISHING TO BE SCHEDULED FOR DENTAL PROCEDURE BY WEEK'S END. HER DENTIST WILL BE LEAVING BY WEEK'S END PATIENT WILL HAVE TO BE OFF BLOOD THINNERS VERY SOON IN ORDER TO BE SCHEDULED BEFORE HER DENTIST LEAVES. ASKING IF OFFICE CAN CALL [phone], OPTION 2 (ASK FOR BRISTON) TO ADVISE WHEN MEDICAL RELEASE PAPERWORK IS READY TO BE FAXED SO THAT PATIENT CAN BE SCHEDULED THANK YOU Patience Choi [facility] 08-12-2024 Telephone encounter Note Prescriptions sent to the pharmacy [facility] 08-12-2024 Miscellaneous Notes Prescriptions sent to the pharmacy Patient called in regards to wanting to increase her buspar and getting back on her iron. Could Dr Dhaliwal send in new prescription of iron and increase buspar? Please advise Husam Grant MA documented in this encounter [facility] 08-12-2024 Telephone encounter Note Patient called in regards to wanting to increase her buspar and getting back on her iron. Could Dr Dhaliwal send in new prescription of iron and increase buspar? Please advise Husam Grant MA [facility] 08-11-2024 Telephone encounter Note Patient called office in regards to be at the dentists office. Patient stated that she is getting a tooth extracted and has yanelis off the coumadin for a week. Dental pharmacy innovation assistant asked if a week was long enough for being off coumadin. Went back asked Dr Dhaliwal if a week is long enough to be off the coumadin and per Dr Dhaliwal yes. Informed dental pharmacy innovation assistant per Dr Dhaliwal yes a week is long enough to bee off coumadin. Dental pharmacy innovation assistant stated thank you. Husam Grant MA [facility] 08-11-2024 Miscellaneous Notes Patient called office in regards to be at the dentists office. Patient stated that she is getting a tooth extracted and has yanelis off the coumadin for a week. Dental pharmacy innovation assistant asked if a week was long enough for being off coumadin. Went back asked Dr Dhaliwal if a week is long enough to be off the coumadin and per Dr Dhaliwal yes. Informed dental pharmacy innovation assistant per Dr Dhaliwal yes a week is long enough to bee off coumadin. Dental pharmacy innovation assistant stated thank you. Husam Grant MA documented in this encounter [facility] 07-30-2024 Telephone encounter Note Called patient however no answer. Left message informing patient that Dr Dhaliwal said to go to the ER. Husam Grant MA [facility] 07-30-2024 Miscellaneous Notes Called patient however no [...] Asking for recommendations Please advise Thank you [phone] (home) [phone] (cell) Patient last appointment: 07/29/2024 Jasmin Garza documented in this encounter [facility] 07-30-2024 Telephone encounter Note Patient calls today. [...] Asking for recommendations Please advise Thank you [phone] (home) [phone] (cell) Patient last appointment: 07/29/2024 Jasmin Garza [facility] 07-29-2024 Telephone encounter Note Prescription Refill Information [...] Cinthia Rob July 29, 2024 8:16 AM [facility] 07-29-2024 Miscellaneous Notes Prescription Refill Information The [...] 2024 8:16 AM documented in this encounter [facility] 07-12-2024 Note HNO ID: [id number] Author: KENTRELL DHALIWAL II, MD Service: ? Author Type: Physician Type: Progress Notes Filed: 07/12/2024 19:41 Note Text: Kentrell Dhaliwal II, MD [address], [place] [address] SUBJECTIVE Adina Escobar is a 74 year old female [...] [Cefdinir] Diarrhea Prednisone GI Upset Propoxyphene Unknown Emjrppd-Aix-Ptc Red* Diarrhea, Intolerance Sulfa (Sulfonamide * Other: [...] tablet) rOPINIRole (REQ (more content not included)... [facility] 07-12-2024 History of Presen t illness Narrative Images from the original note were not included. Kentrell Dhaliwal II, MD [address], [place] [address] SUBJECTIVE Adina Escobar is a 74 year old female [...] [Cefdinir] Diarrhea Prednisone GI Upset Propoxyphene Unknown Cnbzjmd-Ylp-Kym Red* Diarrhea, Intolerance Sulfa (Sulfonamide * Other: [...] every 8 hours as needed for nausea/vomiting. wtjnsbmwaf-gppqnhxf-aeoenfzsmb (BREZTRI AEROSPHERE) 160-9-4.8 mcg/actuation HFA aerosol inhaler [...] Dhaliwal II, M.D. documented in this encounter [facility] 07-04-2024 Telephone encounter Note Prescription Refill Information [...] Grant MA July 04, 2024 8:09 AM [facility] 07-04-2024 Miscellaneous Notes Prescription Refill Information The [...] 2024 8:09 AM documented in this encounter [facility] 07-02-2024 Miscellaneous Notes Prescription Refill Information The [...] 2024 8:25 AM documented in this encounter [facility] 07-02-2024 Telephone encounter Note Prescription Refill Information [...] Wallace MA July 02, 2024 8:25 AM [facility] 06-30-2024 Telephone encounter Note Patient called in today. She wanted to let Dr. Dhaliwal know she is doing much better. Thank you. [facility] 06-30-2024 Miscellaneous Notes Patient called in today. [...] her for this? Please Advise Thank you [phone] (home) [phone] (cell) Patient last appointment: 06/14/2024 Kaylee Palomares documented in this encounter [facility] 06-30-2024 Telephone encounter Note Prescription Refill Information [...] Cinthia Rob June 30, 2024 11:32 AM [facility] 06-30-2024 Miscellaneous Notes Prescription Refill Information The [...] 2024 11:32 AM documented in this encounter [facility] 06-26-2024 Telephone encounter Note Patient called into [...] she will do that. Husam Grant MA [facility] 06-25-2024 Telephone encounter Note Neosporin and Cotton ball. To ER if worse [facility] 06-25-2024 Telephone encounter Note Called patient and [...] ear bleeding? Please advise Husam Grant MA [facility] 06-25-2024 Telephone encounter Note Rx sent [facility] 06-25-2024 Telephone encounter Note Patient called and wanted to add extreme ear pain and bleeding to her left ear and now can not hear out of it and now to the message below. Thank you. [facility] 06-25-2024 Telephone encounter Note Patient calls today. [...] her for this? Please Advise Thank you [phone] (home) [phone] (cell) Patient last appointment: 06/14/2024 Kaylee Palomares [facility] 09-30-2024 Telephone encounter Note Prescription Refill Information The [...] Grant MA June 16, 2024 8:12 AM T [facility] 06-16-2024 Miscellaneous Notes Prescription Refill Information The [...] 2024 8:12 AM documented in this encounter [facility] 06-13-2024 Telephone encounter Note Called patient however no answer. Left message informing patient that labs are in acceptable ranges. Informed to recheck in 6 months or sooner if needed. Husam Grant MA [facility] 06-13-2024 Telephone encounter Note ----- Message from Kentrell Dhaliwal MD sent at 06/12/2024 5:28 PM EDT ----- Labs are acceptable ranges. Recheck labs in 6 months or sooner if needed. [facility] 06-13-2024 Miscellaneous Notes Called patient however no answer. Left message informing patient that labs are in acceptable ranges. Informed to recheck in 6 months or sooner if needed. Husam Grant MA ----- Message from Kentrell Dhaliwal MD sent at 06/12/2024 5:28 PM EDT ----- Labs are acceptable ranges. Recheck labs in 6 months or sooner if needed. documented in this encounter [facility] 06-11-2024 Note HNO ID: [id number] Author: KENTRELL DHALIWAL II, MD Service: ? Author Type: Physician Type: Progress Notes Filed: 06/14/2024 21:10 Note Text: Kentrell Dhaliwal II, MD [address], [place] [address] SUBJECTIVE Adina Escobar is a 74 year old female who presents with Follow Up (3 month follow up. Pt states that she is having breathing issues. Using all of her inhalers. Pt stated that the time is coming that she will need to go to the intermediate. Pt needing refills. Pt would like to [...] [Cefdinir] Diarrhea Prednisone GI Upset Propoxyphene Unknown Lcsxzfq-Pdi-Kmv Red* Diarrhea, Intolerance Sulfa (Sulfonamide * Other: [...] needed for nause (more content not included)... [facility] 09-25-2024 History of Presen t illness Narrative Images from the original note were not included. Kentrell Dhaliwal II, MD [address], [place] [address] SUBJECTIVE Adina Escobar is a 74 year old female who presents with Follow Up (3 month follow up. Pt states that she is having breathing issues. Using all of her inhalers. Pt stated that the time is coming that she will need to go to the intermediate. Pt needing refills. Pt would like to [...] [Cefdinir] Diarrhea Prednisone GI Upset Propoxyphene Unknown Gmsgmra-Mkk-Blx Red* Diarrhea, Intolerance Sulfa (Sulfonamide * Other: [...] every 8 hours as needed for nausea/vomiting. xoxebrgdsx-cvjzrvdk-jrrhqrgicg (BREZTRI AEROSPHERE) 160-9-4.8 mcg/actuation HFA aerosol inhaler [...] Dhaliwal II, M.D. documented in this encounter [facility] 05-30-2024 Telephone encounter Note Prescription Refill Information [...] Kaylee Palomares May 30, 2024 4:27 PM [facility] 05-30-2024 Miscellaneous Notes Prescription Refill Information The [...] 2024 4:27 PM documented in this encounter [facility] 05-29-2024 Telephone encounter Note Prescription Refill Information [...] mouth every 6 hours as needed. Husam Grant, MA May 29, 2024 8:39 AM [facility] 05-29-2024 Miscellaneous Notes Prescription Refill Information The [...] 2024 8:39 AM documented in this encounter [facility] 05-07-2024 Telephone encounter Note Patient returned call to the office. She was advised of appointment date and time. She said she was all ready for appointment today and she sat down on her bed and fell back to sleep. [facility] 05-07-2024 Miscellaneous Notes Patient returned call to [...] office she has not. Daughter advised. Patients jerrod Ponce called today. Reason for Call: stated [...] today at 9:20 am Rosario call back [phone] Thank you [phone] (home) [phone] (cell) Patient last appointment: 05/01/2024 Kavya Argueta documented in this encounter [facility] 05-07-2024 Telephone encounter Note RESCHEDULED PATIENT TO 06/11/24 @ 10:00 AM, LEFT MESSAGE ON PATIENT'S VOICEMAIL TO ADVISE Patience Choi [facility] 05-07-2024 Telephone encounter Note Jerrod Ponce called back to see if patient has checked in, still can't get a hold of patient. Per Ulises at office she has not. Daughter advised. [facility] 05-07-2024 Telephone encounter Note Patients jerrod Ponce called today. Reason for Call: stated [...] today at 9:20 am Rosario call back [phone] Thank you [phone] (home) [phone] (cell) Patient last appointment: 05/01/2024 Kavya Argueta [facility] 05-01-2024 Telephone encounter Note Prescription Refill Information [...] Kaylee Palomares May 01, 2024 11:53 AM [facility] 05-01-2024 Miscellaneous Notes Prescription Refill Information The [...] 2024 11:53 AM documented in this encounter [facility] 04-14-2024 Telephone encounter Note Prescription Refill Information [...] Take 1 capsule by mouth once daily. Maximo Pappas April 14, 2024 9:46 AM [facility] 04-14-2024 Miscellaneous Notes Prescription Refill Information The [...] Take 1 capsule by mouth once daily. Maximo Pappas April 14, 2024 9:46 AM documented in this encounter [facility] 04-07-2024 Telephone encounter Note Prescription Refill Information [...] Grant MA April 07, 2024 8:08 AM [facility] 04-07-2024 Miscellaneous Notes Prescription Refill Information The [...] 2024 8:08 AM documented in this encounter [facility] 04-01-2024 Telephone encounter Note Prescription Refill Information [...] Jasmin Garza April 01, 2024 11:49 AM [facility] 04-01-2024 Miscellaneous Notes Prescription Refill Information The [...] 2024 11:49 AM documented in this encounter [facility] 03-17-2024 Telephone encounter Note Prescription Refill Information [...] Estelita Lomeli March 17, 2024 9:07 AM [facility] 03-17-2024 Miscellaneous Notes Prescription Refill Information The [...] 2024 9:07 AM documented in this encounter [facility] 03-03-2024 Telephone encounter Note Patient calls requesting refill: Requested Prescriptions Pending Prescriptions Disp Refills ALPRAZolam (XANAX) 1 mg tablet 60 tablet 0 Sig: Take 1 tablet by mouth every 12 hours as needed for up to 30 days. Date of last visit:02/01/2024 Phone #: [phone] (home) [phone] (cell) The patients preferred pharmacy has been captured for this encounter? yes [facility] 03-03-2024 Miscellaneous Notes Patient calls requesting refill: Requested Prescriptions Pending Prescriptions Disp Refills ALPRAZolam (XANAX) 1 mg tablet 60 tablet 0 Sig: Take 1 tablet by mouth every 12 hours as needed for up to 30 days. Date of last visit:02/01/2024 Phone #: [phone] (home) [phone] (cell) The patients preferred pharmacy has been captured for this encounter? yes documented in this encounter [facility] 02-01-2024 Telephone encounter Note Patient calls requesting refill: Requested Prescriptions Pending Prescriptions Disp Refills ALPRAZolam (XANAX) 1 mg tablet 60 tablet 0 Sig: Take 1 tablet by mouth every 12 hours as needed for up to 30 days. Date of last visit:01/02/2024 Phone #: [phone] (home) [phone] (cell) The patients preferred pharmacy has been captured for this encounter? yes [facility] 02-01-2024 Miscellaneous Notes Patient calls requesting refill: Requested Prescriptions Pending Prescriptions Disp Refills ALPRAZolam (XANAX) 1 mg tablet 60 tablet 0 Sig: Take 1 tablet by mouth every 12 hours as needed for up to 30 days. Date of last visit:01/02/2024 Phone #: [phone] (home) [phone] (cell) The patients preferred pharmacy has been captured for this encounter? yes documented in this encounter [facility] 01-15-2024 Telephone encounter Note Patient calls requesting refill: Requested Prescriptions Pending Prescriptions Disp Refills zolpidem (AMBIEN) 10 mg 30 tablet 2 Sig: Take 1 tablet by mouth at bedtime as needed for up to 90 days. For Insomnia Date of last visit:Visit date not found Phone #: [phone] (home) [phone] (cell) The patients preferred pharmacy has been captured for this encounter? yes [facility] 01-15-2024 Miscellaneous Notes Patient calls requesting refill: Requested Prescriptions Pending Prescriptions Disp Refills zolpidem (AMBIEN) 10 mg 30 tablet 2 Sig: Take 1 tablet by mouth at bedtime as needed for up to 90 days. For Insomnia Date of last visit:Visit date not found Phone #: [phone] (home) [phone] (cell) The patients preferred pharmacy has been captured for this encounter? yes documented in this encounter [facility] 01-13-2024 History of Presen t illness Narrative Images from the original note were not included. Kentrell Dhaliwal II, MD [address], [place] [address] SUBJECTIVE Adina Escobar is a 73 year old female [...] [Cefdinir] Diarrhea Prednisone GI Upset Propoxyphene Unknown Taybsvt-Qso-Ozu Red* Diarrhea, Intolerance Sulfa (Sulfonamide * Other: [...] every 8 hours as needed for nausea/vomiting. llmxtfrzpb-jgspkabn-ipnqfjnnzs (BREZTRI AEROSPHERE) 160-9-4.8 mcg/actuation HFA aerosol inhaler [...] Dhaliwal II, M.D. documented in this encounter [facility] 12-17-2023 Miscellaneous Notes Called patient for update- Patient stated that she has decided to go into a Independent living facility. Lavon [facility]. Is in the process of making the arrangements. Confirmed that she still plans to follow with Dr. Dhaliwal in the office and confirmed appointment for January 01. Gertrude Mccloud, DAVID Patient calls today. Reason for Call: patient stated we have been calling her sisters number and when checking chart sisters cell phone was listed as patients cell number. Chart has been updated and patient is requesting nurse navigator call her at [phone] . Patient stated she is doing well since being in the hospital but is going to a intermediate and would like to discuss. Thank you [phone] (home) [phone] (cell) Patient last appointment: 12/12/2023 Kavya Argueta documented in this encounter [facility] 12-11-2023 Progress note Note Date/Time December 11, 2023 8:14am [facility] Medical Records Department [address] [place] [address] Progress Note - Surgery 12/11/23 0807 MR#: [id number] Acct: [id number] Name: ADINA ESCOBAR Rep #:[id number] : 1950 73 From: Rogers RIVERA PA-C PCP: Dr. Kentrell Dhaliwal MD Status:ADM [facility] Subjective Subjective Patient evaluated resting comfortably in [...] 350, Iron Saturation 8.0 L, Ferritin 15, WnblxhuM30 741 12/11/23 06:10: WBC 5.6, RBC 2.90 L, Hgb 7.8 L, Hct 24.7 L, MCV 85.2, MCH 26.9 L, MCHC 31.6 L, RDW Std Deviation 51.0 H, RDW Coeff of Neno 16.3 H, Plt Count 235,MPV 11.0, Immature Gran % (Auto) 0.200, Neut % (Auto) 52.3, Lymph % (Auto) 32.3,Terry % (Auto) 11.6 H, Eos % (Auto) [...] follow her. Charges/Coding Visit Charges Inpatient E&M: 46329 Subs Hosp L1 12/11/23 0814 <Electronically signed by Rogers RIVERA PA-C> Cosigner Signature (if applicable): CC: ~ Signed [facility] Work Phone: 1(373) 968-607703-25-2024 Progress note Author Rogers Duarte [facility] December 10, 2023 3:45pm Note Date/Time December 10, 2023 3:4 6pm [facility] Medical Records Department [address] [place] [address] Progress Note - Surgery 12/10/23 1538 MR#: [id number] Acct: [id number] Name: ADINA ESCOBAR Rep #:[id number] : 1950 73 From: Rogers RIVERA PA-C PCP: Dr. Kentrell Dhaliwal MD Status:ADM IN Location: [facility] [id number]- 1 Subjective Subjective Patient evaluated around lunch time. [...] 350, Iron Saturation 8.0 L, Ferritin 15, NsgxfkxZ92 741 Micro: Microbiology 12/08/23 07:00 Stool Clostridioides [...] this patient Charges/Coding Visit Charges Inpatient E&M: 00871 Subs Hosp L1 12/10/23 2942 <Electronically signed by Rogers RIVERA PA-C> Cosigner Signature (if applicable): CC: ~ Signed [facility] Work Phone: 1(173) 102-786303-25-2024 Progress note Author Aly Fragoso [facility] December 10, 2023 10:35am Note Date/Time December 10, 2023 10: 35am [facility] Medical Records Department [address] [place] [address] Progress Note - Hospitalist 12/10/23 1033 MR#: [id number] Acct: [id number] Name: ADINA ESCOBAR Rep #:[id number] : 1950 73 From: Aly quintana MD PCP: Dr. Kentrell Dhaliwal MD Status:ADM IN Location: [place] [address] Subjective Subjective Doing well continue passing flatus. [...] % (Auto) 59.4, Lymph % (Auto) 28.5, Terry % (Auto) 8.0, Eos % (Auto) 2.8, [...] DVT: SCDs Charges/Coding Visit Charges Inpatient E&M: 71609 Subs Hosp L2 12/10/23 1035 <Electronically signed by Aly Fragoso MD> Cosigner Signature (if applicable): CC: ~ Signed [facility] Work Phone: 1(794) 648-713203-24-2024 Progress note Author Aly Fragoso [facility] December 09, 2023 2:19pm Note Date/Time December 09, 2023 2:1 9pm [facility] Medical Records Department [address] [place] [address] Progress Note - Hospitalist 12/09/23 1418 MR#: [id number] Acct: [id number] Name: ADINA ESCOBAR Rep #:[id number] : 1950 73 From: Aly quintana MD PCP: Dr. Kentrell Dhaliwal MD Status:ADM IN Location: [place] [address] Subjective Subjective Feels better today, had a [...] % (Auto) 59.4, Lymph % (Auto) 28.5, Terry % (Auto) 8.0, Eos % (Auto) 2.8, [...] level of care ? Pending transfer to [facility], though she may be discharged prior to [...] DVT: SCDs Charges/Coding Visit Charges Inpatient E&M: 86415 Subs Hosp L2 12/09/23 1419 <Electronically signed by Aly Fragoso MD> Cosigner Signature (if applicable): CC: ~ Signed [facility] Work Phone: 1(616) 965-604603-24-2024 Progress note Author Ana Laura Lennon [facility] December 09, 2023 9:37am Note Date/Time December 09, 2023 9:3 4am [facility] Medical Records Department [address] [place] [address] Progress Note - Surgery 12/09/23932 MR#: [id number] Acct: [id number] Name: ADINA ESCOBAR Rep #:[id number] : 1950 73 From: Ana Laura Lennon MD PCP: Dr. Kentrell Dhaliwal MD Status:ADM IN Location: [place] [address] Subjective Subjective Pt had flatus and liquid [...] check KUB. Patient has been accepted to [facility] awaiting bed as she does have short gut due to previous small bowel resection . Ana Laura Lennon M.D. Pager: [phone] [facility] [address] [place] [address], [address] [place] [address] Office: [phone] Charges/Coding Visit Charges Inpatient E&M: 34043 Subs Hosp L2 12/09/23 0937 <Electronically signed by Ana Laura Lennon MD> Cosigner Signature (if applicable): CC: ~ Signed [facility] Work Phone: 1(898) 474-544903-23-2024 Progress note Author Aly Fragoso [facility] December 08, 2023 11:04am Note Date/Time December 08, 2023 10: 29am [facility] Medical Records Department [address] [place] [address] Progress Note - Hospitalist 12/08/23 1025 MR#: [id number] Acct: [id number] Name: ADINA ESCOBAR Rep #:[id number] : 1950 73 From: Aly quintana MD PCP: Dr. Kentrell Dhaliwal MD Status:ADM IN Location: [place] [address] Subjective Subjective Continues to be nauseated with [...] Neut % (Auto) 53.4, Lymph % (Auto) 34.5,Terry % (Auto) 8.6, Eos % (Auto) 2.4, [...] level of care ? Pending transfer to [facility] ? Will recheck H&H this afternoon ? [...] DVT: SCDs Charges/Coding Visit Charges Inpatient E&M: 90667 Subs Hosp L2 12/08/23 1104 <Electronically signed by Aly Fragoso MD> Cosigner Signature (if applicable): CC: ~ Signed [facility] Work Phone: 1(828) 257-792403-23-2024 Progress note Author Ana Laura Lennon [facility] December 08, 2023 9:18am Note Date/Time December 08, 2023 9:1 8am [facility] Medical Records Department [address] [place] [address] Progress Note - Surgery 12/08/23913 MR#: [id number] Acct: [id number] Name: ADINA ESCOBAR Rep #:[id number] : 1950 73 From: Ana Laura Lennon MD PCP: Dr. Kentrell Dhaliwal MD Status:ADM IN Location: [place] [address] Subjective Subjective Patient still complains of abdominal [...] Neut % (Auto) 53.4, Lymph % (Auto) 34.5,Terry % (Auto) 8.6, Eos % (Auto) 2.4, [...] then vomit. Patient has been accepted to [facility] awaiting bed as she does have short gut due to previous small bowel resection. Ana Laura Lennon M.D. Pager: [phone] [facility] [address] [facility], [address] [place] [address] Office: [phone] Charges/Coding Visit Charges Inpatient E&M: 79458 Subs Hosp L2 12/08/23 0918 <Electronically signed by Ana Laura Lennon MD> Cosigner Signature (if applicable): CC: ~ Signed [facility] Work Phone: 1(654) 575-176703-22-2024 Consult note Author Paulo Umanzor [facility] December 07, 2023 1:42pm Note Date/Time December 07, 2023 12: 07pm [facility] Medical Records Department [address] [place] [address] Consultation - Surgical 12/07/23 1205 MR#: [id number] Acct: [id number] Name: ADINA ESCOBAR Rep #:[id number] : 1950 73 From: Paulo Escoto PCP: Dr. Kentrell Dhaliwal MD Status:ADM IN Location: [place] [id number]- [id number] Assessment & Plan Assessment/Plan (1) SBO [...] for partial small bowel obstruction HPI Narrative: ADINA ESCOBAR, is a 73 F who presents to [facility] after approximately 5 days of progressive abdominal [...] tolerate a diet and was transferred to [facility] in the event that she would require surgery. She confirms she was managed nonoperatively. 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 [facility] Medical History Anxiety and depression Chronic [...] [From Levaquin] AdvReac Vomiting Verified 03/31/23 22:24 Ttjcuoi-WKI-DuH Reductase AdvReac NEEDS Verified 03/31/23 22:24 Inhibitor [...] 44.7 L, Lymph % (Auto) 44.8 H, Terry % (Auto) 8.4, Eos % (Auto) 0.8, [...] Neut % (Auto) 55.8, Lymph % (Auto) 33.2,Terry % (Auto) 9.6, Eos % (Auto) 0.7, [...] Umanzor MD; Dr. Kentrell Dhaliwal MD~ Signed [facility] Work Phone: 1(669) 914-633703-22-2024 Discharge summary Author Federico Monique [facility] December 07, 2023 12:18am Note Date/Time December 06, 2023 5:2 3pm [facility] Medical Records Department [address] [place] [address] Emergency Department Summary 12/06/23 MR#: [id number] Acct: [id number] Name: ADINA ESCOBAR Rep #:[id number] : 1950 73 [...] to whatshe describes as volvulus done in [place]. History of bowel obstructions in the past. [...] [From Levaquin] AdvReac Vomiting Verified 03/31/23 22:24 Yovrgui-EBF-PfO Reductase AdvReac NEEDS Verified 03/31/23 22:24 Inhibitor [...] 2 in the hospital was transferred to [facility]. Test considered but not ordered:N/A ED course: [...] initiate transfer process. 1800: I spoke with [facility] transfer line and surgery quarterback, Dr. Staley, [...] discussed with consulting clinician: General surgery, hospitalist, [facility] general surgery This note was generated with Xceedium dictation software. It may contain incorrectwords, spelling, [...] 44.7 L Lymph % (Auto) 44.8 H Terry % (Auto) 8.4 Eos % (Auto) 0.8 [...] your Primary Care Provider. Call [facility] ([phone]) or report to the closest Emergency Room. Call 911 if necessary. 12/07/23 0018 <Electronically signed by Federico Harvey> Cosigner Signature (if applicable): CC: Dr. Kentrell Dhaliwal MD ~ Signed [facility] Work Phone: 1(540) 316-856103-22-2024 History and physical note Author Jessica Thomas [facility] December 07, 2023 12:09am Note Date/Time December 06, 2023 9:3 8pm [facility] Medical Records Department [address] [place] [address] H&P Exam - Hospitalist 12/07/23 0008 MR#: [id number] Acct: [id number] Name: ADINA ESCOBAR Rep #:[id number] : 1950 73 [...] including bowel resection who presents to the [facility] ED on 12/06/23 with history of [...] transfer to tertiary facility to be cautious. [facility] Medical History Anxiety and depression Chronic [...] [From Levaquin] AdvReac Vomiting Verified 03/31/23 22:24 Pfvoaga-ONV-BwJ Reductase AdvReac NEEDS Verified 03/31/23 22:24 Inhibitor [...] 44.7 L, Lymph % (Auto) 44.8 H, Terry % (Auto) 8.4, Eos % (Auto) 0.8, [...] including bowel resection who presents to the [facility] ED on 12/06/23 with history of [...] bowel obstruction: Given patient is still awaiting [facility] transfer bed at recommendation of general surgery willadmit to [place], maintain on IVFs, NGT per surgery discretion [...] bowel rest. General surgery consulted while at [facility] but again per their recommendation is still awaiting transfer bed at [facility]. #2. Elevated BP without hypertensive diagnosis: [...] 10.1, MCV 85.2, baseline hemoglobin noted prior 10-11, stable, continue to trend. #10. GERD: We [...] 16 minutes. Charges/Coding Visit Charges Inpatient E&M: 45048 Init Hosp L3 Procedures Hospitalists Procedures: 25958 Advncd Care Plan 30 Min 12/07/23 0009 <Electronically signed by Jessica Thomas MD> Cosigner Signature (if applicable): CC: Dr. Jessica Thomas MD; Dr. Kentrell Dhaliwal MD~ Signed [facility] Work Phone: 1(439) 912-870703-21-2024 History and physical note Author Jessica Thomas [facility] December 07, 2023 12:09am Note Date/Time December 06, 2023 9:3 8pm [facility] Medical Records Department [address] [place] [address] H&P Exam - Hospitalist 12/07/23 0008 MR#: [id number] Acct: [id number] Name: ADINA ESCOBAR Rep #:[id number] : 1950 73 [...] including bowel resection who presents to the [facility] ED on 12/06/23 with history of [...] transfer to tertiary facility to be cautious. [facility] Medical History Anxiety and depression Chronic [...] [From Levaquin] AdvReac Vomiting Verified 03/31/23 22:24 Gvzcfcw-MFA-UvG Reductase AdvReac NEEDS Verified 03/31/23 22:24 Inhibitor [...] 44.7 L, Lymph % (Auto) 44.8 H, Terry % (Auto) 8.4, Eos % (Auto) 0.8, [...] 18:16 EDT Reading Location ID and State: [address] [place] [address] , Service support , Assessment & Plan Assessment/Plan (1) SBO (small bowel obstruction): PLAN: Plan The patient is a 72 y/o F w/ PMHx: Hypothyroidism, Chronic anemia, CKD stage IIIunclear subtype, Anxiety and Depression, Hx VTE, HLD, GERD, Hx SBO s/p 7 prior abdominal surgeries including bowel resection who presents to the [facility] ED on 12/06/23 with history of [...] bowel obstruction: Given patient is still awaiting [facility] transfer bed at recommendation of general surgery [...] bowel rest. General surgery consulted while at [facility] but again per their recommendation is still awaiting transfer bed at [facility]. #2. Elevated BP without hypertensive diagnosis: [...] 10.1, MCV 85.2, baseline hemoglobin noted prior 10-11, stable, continue to trend. #10. GERD: We [...] 16 minutes. Charges/Coding Visit Charges Inpatient E&M: 83472 Init Hosp L3 Procedures Hospitalists Procedures: 33164 Advncd Care Plan 30 Min 12/07/23 0009 <Electronically signed by Jessica Thomas MD> Cosigner Signature (if applicable): CC: Dr. Jessica Thomas MD; Dr. Kentrell Dhaliwal MD~ Signed [facility] Work Phone: 1(809) 868-779503-21-2024 Discharge summary Author Federico Monique [facility] December 07, 2023 12:18am Note Date/Time December 06, 2023 5:2 3pm [facility] Medical Records Department [address] [place] [address] Emergency Department Summary 12/06/23 MR#: [id number] Acct: [id number] Name: ADINA ESCOBAR Rep #:[id number] : 1950 73 [...] to whatshe describes as volvulus done in [place]. History of bowel obstructions in the past. [...] [From Levaquin] AdvReac Vomiting Verified 03/31/23 22:24 Laegprz-WPU-PeD Reductase AdvReac NEEDS Verified 03/31/23 22:24 Inhibitor [...] 2 in the hospital was transferred to [facility]. Test considered but not ordered:N/A ED course: [...] initiate transfer process. 1800: I spoke with [facility] transfer line and surgery quarterback, Dr. Staley, [...] discussed with consulting clinician: General surgery, hospitalist, [facility] general surgery This note was generated with Xceedium dictation software. It may contain incorrectwords, spelling, [...] 44.7 L Lymph % (Auto) 44.8 H Terry % (Auto) 8.4 Eos % (Auto) 0.8 [...] 18:16 EDT Reading Location ID and State: [address] [place] [address] , Service support , Discharge Plan Triage Chief Complaint: Abd [...] your Primary Care Provider. Call [facility] ([phone]) or report to the closest Emergency Room. Call 911 if necessary. 12/07/23 0018 <Electronically signed by Federico Harvey> Cosigner Signature (if applicable): CC: Dr. Kentrell Dhaliwal MD ~ Signed [facility] Work Phone: 1(421) 525-198203-21-2024 Miscellaneous Notes* Telephone Encounter - Josep Drew MA - 12/06/2023 4:31 PM EDT Left message on patients cell number. Other two numbers, no answer. Will attempt to call patient 12/07/23. Josep Drew MA * Telephone Encounter - Kentrell [...] LIKE SHE HAS TO VOMIT ASKING WHAT SUGGESTS THANK YOU Patience Choi [facility] Miscellaneous Notes* Telephone Encounter - Husam Grant [...] [Cefdinir] Diarrhea Prednisone GI Upset Propoxyphene Unknown Hgacmyk-Rhu-Qdd Red* Diarrhea, Intolerance Sulfa (Sulfonamide * Other: See Comments Leg pain Shellfish Containin* Swelling (home) [phone] (cell) Last Office Visit Date: 07/24/2023 Last [facility] Visit: Visit date not found Future Appointment: 01/17/2024 The patients preferred pharmacy has been captured for this encounter? yes Request is for script(s) to be escript to pharmacy. Husam Grant MA documented in this encounterS[facility]24 Miscellaneous Notes* Telephone Encounter - Rachel Markham [...] [Cefdinir] Diarrhea Prednisone GI Upset Propoxyphene Unknown Shvfglo-Ujg-Ugt Red* Diarrhea, Intolerance Sulfa (Sulfonamide * Other: See Comments Leg pain Shellfish Containin* Swelling (home) [phone] (cell) Last Office Visit Date: 07/24/2023 Last [facility] Visit: Visit date not found Future Appointment: Visit date not found The patients preferred pharmacy has been captured for this encounter? yes Request is for script(s) to be escript to pharmacy. Rachel Markham MA documented in this encounterScci Hospital [facility]11-21-2023 Miscellaneous Notes* Telephone Encounter - Husam Grant [...] the pulmonary physician and possibly even a organic gardening teacher. Her last echocardiogram in April of last year showed relatively good heart functioning but if she is continue to have chest pain we will send her to organic gardening teacher for further heart evaluation. Patient stated that she would like the referral to a range conservationist and organic gardening teacher. Could Dr Dhaliwal print out a referral to Shipping Room Supervisor? Could Dr Dhaliwal print out referral to Air Defense Control Officer? Please advise Husam Grant MA * Telephone [...] the pulmonary physician and possibly even a organic gardening teacher. Her last echocardiogram in April of last year showed relatively good heart functioning but if she is continue to have chest pain we will send her to organic gardening teacher for further heart evaluation. * Telephone Encounter [...] THANK YOU Patience Choi documented in this encounterScci Hospital [facility]11-08-2023 Miscellaneous Notes* Telephone Encounter - Husam Grant [...] or sooner if needed. documented in this encounterScci Hospital [facility]11-07-2023 History of Present illness Narrative* Jillian Ram RT(R) - 07/24/2023 3:45 PM EST Radiology Service Progress Note PATIENT NAME: Adina Escobar DATE OF SERVICE: July 24, 2023 [...] 24, 2023 3:39 PM documented in this encounterScci Hospital [facility]ima11-07-2023 History of Present illness Narrative* Kentrell Dhaliwal II, MD - 07/24/2023 2:39 PM EST Images from the original note were not included. Kentrell Dhaliwal II, MD [address], [address] [place] [address] NOEMI sEcobar is a 73 year old female who [...] [Cefdinir] Diarrhea Prednisone GI Upset Propoxyphene Unknown Jbejbhh-Hac-Ssx Red* Diarrhea, Intolerance Sulfa (Sulfonamide * Other: [...] SF 5000 PLUS 1.1 % dental cream fjuanuvpno-lhntzjam-dkhxaxrmdm (BREZTRI AEROSPHERE) 160-9-4.8 mcg/actuation HFA aerosol inhaler [...] Kentrell Dhaliwal II, M.D. documented in this encounterScci Hospital [facility]ima10-18-2023 Miscellaneous Notes* Telephone Encounter - Patience Choi - 07/04/2023 9:25 AM EDT Summary: REFILL REQUEST SHERIN WALKER TRAMADOL XANAX THANK YOU Patience Choi documented in this encounterScci Hospital [facility]ima10-02-2023 Miscellaneous Notes* Telephone Encounter - Husam Grant [...] [Cefdinir] Diarrhea Prednisone GI Upset Propoxyphene Unknown Hhhjzwq-Tzo-Bdo Red* Diarrhea, Intolerance Sulfa (Sulfonamide * Other: See Comments Leg pain Shellfish Containin* Swelling (home) [phone] (cell) Last Office Visit Date: 04/18/2023 Last [facility] Visit: Visit date not found Future Appointment: 07/24/2023 The patients preferred pharmacy has been captured for this encounter? yes Request is for script(s) to be escript to pharmacy. Husam Grant MA documented in this encounterScci Hospital [facility]ima09-20-2023 Miscellaneous Notes* Telephone Encounter - Patience Choi - 06/06/2023 12:43 PM EDT Summary: REFILL REQUEST PATIENT IS REQUESTING REFILL FOR XANAX THANK YOU Patience Choi documented in this encounterScci Hospital [facility]ima09-15-2023 Miscellaneous Notes* Telephone Encounter - Josep Drew MA - 06/01/2023 1:56 PM EDT Called patient to inform of Dr. Dhaliwal message. Patient states understanding and states that she is getting more weak, having difficulty walking to kitchen. States she is going to see how tonight goesand if no relief she may go to ER. Josep Drew MA * Telephone Encounter - Kentrell Dhaliwal II, MD - 06/01/2023 1:45 PM EDT The NG tube relieves pressure that causes the pain if she has a build up of gas or fluids if she has an ileus so sometimes it is needed Refill sent * Telephone Encounter - Josep Drew MA - 06/01/2023 10:33 AM EDT Patient called requesting refill and dose increase of Ultram due to abdominal pain. States she is taking Bentyl for the cramping and Zofran for nausea however, the pain has increased. Patient states she is not returning to the Hospital as she is tired of having NG tube and feels they do nothing for her. Please advise Josep Drew MA documented in this encounterScci Hospital [facility]ima09-05-2023 Miscellaneous Notes* Telephone Encounter - Abigail Segura MA - 05/22/2023 12:11 PM EDT [...] [Cefdinir] Diarrhea Prednisone GI Upset Propoxyphene Unknown Drjirgx-Yfr-Njy Red* Diarrhea, Intolerance Sulfa (Sulfonamide * Other: See Comments Leg pain Shellfish Containin* Swelling (home) [phone] (cell) Last Office Visit Date: 04/18/2023 Last [facility] Visit: Visit date not found Future Appointment: 07/24/2023 The patients preferred pharmacy has been captured for this encounter? yes Request is for script(s) to be escript to pharmacy. Abigail Segura MA documented in this encounterScci Hospital [facility]ima09-04-2023 Miscellaneous Notes* Telephone Encounter - Kentrell Dhaliwal II, MD - 05/21/2023 7:32 PM EDT No Can't be mailed away and limited on number of pills and refills * Telephone Encounter - Patience Choi - 05/18/2023 11:57 AM EDT Summary: REFILL REQUEST PATIENT IS REQUESTING REFILL FOR TRAMADOL BE SENT TO [facility] MAIL DELIVERY THANK YOU Patience Choi documented in this encounterScci Hospital [facility]ima08-18-2023 Miscellaneous Notes* Telephone Encounter - Husam Grant [...] [Cefdinir] Diarrhea Prednisone GI Upset Propoxyphene Unknown Mohmyoh-Qoe-Hpw Red* Diarrhea, Intolerance Sulfa (Sulfonamide * Other: See Comments Leg pain Shellfish Containin* Swelling (home) [phone] (cell) Last Office Visit Date: 04/18/2023 Last [facility] Visit: Visit date not found Future Appointment: 07/24/2023 The patients preferred pharmacy has been captured for this encounter? yes Request is for script(s) to be escript to pharmacy. Husam Grant MA documented in this encounterScci Hospital [facility]ima08-09-2023 Miscellaneous Notes* Telephone Encounter - Patience Choi - 04/25/2023 2:47 PM EDT Summary: REFILL REQUESTS PATIENT IS REQUESTING REFILLS FOR AMBIEN AND DICYCLOMINE THANK YOU Patience Choi * Telephone Encounter - Patience Choi - 04/23/2023 1:50 PM EDT Summary: PATIENT UPDATE PATIENT CALLED TO LET DR KNOW THAT SHE IS DOING MUCH BETTER Patience Choi documented in this encounterScci Hospital [facility]08-02-2023 History of Present illness Narrative* Kentrell Dhaliwal II, MD - 04/18/2023 11:48 PM EDT Transitional Care Management TCM Eligibility Documentation The following information was gathered during the initial Patient Outreach Encounter. Date of Outreach: 04/06/2023 Outreach Attempt 1: Contact Made Date of Discharge 04/05/2023 Some recent data might be hidden Summary Discharged from: [facility] Admit Date: 04/01/23 Admitted for: Small bowel obstruction Kentrell Dhaliwal II, MD Provider Documentation Adina Escobar is a 72 year old female [...] Kentrell Dhaliwal II, MD documented in this encounterScci Hospital [facility]ima07-26-2023 Miscellaneous Notes* Telephone Encounter - Josep Drew MA - 04/11/2023 2:30 PM EDT [...] Diarrhea Omnicef [Cefdinir] Diarrhea Prednisone GI Upset Uzorwsz-Hta-Udy Red* Diarrhea Sulfa (Sulfonamide * Other: See Comments Leg pain Shellfish Containin* Swelling (home) [phone] (cell) Last Office Visit Date: 11/23/2022 Last [facility] Visit: Visit date not found Future Appointment: 04/18/2023 The patients preferred pharmacy has been captured for this encounter? yes Request is for script(s) to be escript to pharmacy. Josep Drew MA refill documented in this encounterScci Hospital [facility]ima07-25-2023 Miscellaneous Notes* Telephone Encounter - Husam Grant [...] Diarrhea Omnicef [Cefdinir] Diarrhea Prednisone GI Upset Vnlzllw-Mib-Sth Red* Diarrhea Sulfa (Sulfonamide * Other: See Comments Leg pain Shellfish Containin* Swelling (home) [phone] (cell) Last Office Visit Date: 11/23/2022 Last [facility] Visit: Visit date not found Future Appointment: 04/18/2023 The patients preferred pharmacy has been captured for this encounter? yes Request is for script(s) to be escript to pharmacy. Husam Grant MA documented in this encounterScci Hospital [facility]ima07-16-2023 History of Past illness Narrative* Problem Noted Date Diagnosed Date Resolved Date SBO (small bowel obstruction) 04/01/2023 04/05/2023 Small bowel obstruction 03/18/2023 07/0 12/2022 Parkinson's disease 06/22/2020 04/17/20 22 GERD without esophagitis 06/22/202009/2021 documented as of this encounter (statuses as of 04/11/2023) [facility] History of Past illness Narrative* Problem Noted Date Diagnosed Date Resolved Date SBO (small bowel obstruction) 04/01/2023 04/05/2023 Small bowel obstruction 03/18/2023 07/0 12/2022 Parkinson's disease 06/22/2020 04/17/20 22 GERD without esophagitis 06/22/202009/2021 documented as of this encounter (statuses as of 04/11/2023) [facility] of Past illness Narrative* Problem Noted Date Diagnosed Date Resolved Date SBO (small bowel obstruction) 04/01/2023 04/05/2023 Small bowel obstruction 03/18/2023 07/0 12/2022 Parkinson's disease 06/22/2020 04/17/20 22 GERD without esophagitis 06/22/202009/2021 documented as of this encounter (statuses as of 04/19/2023) [facility] of Past illness Narrative* Problem Noted Date Diagnosed Date Resolved Date SBO (small bowel obstruction) 04/01/2023 04/05/2023 Small bowel obstruction 03/18/2023 07/0 12/2022 Parkinson's disease 06/22/2020 04/17/20 22 GERD without esophagitis 06/22/202009/2021 documented as of this encounter (statuses as of 04/26/2023) [facility] of Past illness Narrative* Problem Noted Date Diagnosed Date Resolved Date SBO (small bowel obstruction) 04/01/2023 04/05/2023 Small bowel obstruction 03/18/2023 07/0 12/2022 Parkinson's disease 06/22/2020 04/17/20 22 GERD without esophagitis 06/22/2020 08/ 09/2021 documented as of this encounter (statuses as of 05/05/2023) [facility] of Past illness Narrative* Problem Noted Date Diagnosed Date Resolved Date SBO (small bowel obstruction) 04/01/2023 04/05/2023 Small bowel obstruction 03/18/2023 07/0 12/2022 Parkinson's disease 06/22/2020 04/17/20 22 GERD without esophagitis 06/22/202009/2021 documented as of this encounter (statuses as of 05/23/2023) [facility] of Past illness Narrative* Problem Noted Date Diagnosed Date Resolved Date SBO (small bowel obstruction) 04/01/2023 04/05/2023 Small bowel obstruction 03/18/2023 07/0 12/2022 Parkinson's disease 06/22/2020 04/17/20 22 GERD without esophagitis 06/22/202009/2021 documented as of this encounter (statuses as of 06/01/2023) [facility] of [facility] illness Narrative* Problem Noted Date Diagnosed Date Resolved Date SBO (small bowel obstruction) 04/01/2023 04/05/2023 Small bowel obstruction 03/18/2023 07/0 12/2022 Parkinson's disease 06/22/2020 04/17/20 22 GERD without esophagitis 06/22/202009/2021 documented as of this encounter (statuses as of 06/07/2023) [facility] of [facility] illness Narrative* Problem Noted Date Diagnosed Date Resolved Date SBO (small bowel obstruction) 04/01/2023 04/05/2023 Small bowel obstruction 03/18/2023 07/0 12/2022 Parkinson's disease 06/22/2020 04/17/20 22 GERD without esophagitis 06/22/202009/2021 documented as of this encounter (statuses as of 06/07/2023) [facility] of [facility] illness Narrative* Problem Noted Date Diagnosed Date Resolved Date SBO (small bowel obstruction) 04/01/2023 04/05/2023 Small bowel obstruction 03/18/2023 07/0 12/2022 Parkinson's disease 06/22/2020 04/17/20 22 GERD without esophagitis 06/22/202009/2021 documented as of this encounter (statuses as of 06/21/2023) [facility] of Past illness Narrative* Problem Noted Date Diagnosed Date Resolved Date SBO (small bowel obstruction) 04/01/2023 04/05/2023 Small bowel obstruction 03/18/2023 07/0 12/2022 Parkinson's disease 06/22/2020 04/17/20 22 GERD without esophagitis 06/22/202009/2021 documented as of this encounter (statuses as of 07/06/2023) [facility] of [facility] illness Narrative* Problem Noted Date Diagnosed Date Resolved Date SBO (small bowel obstruction) 04/01/2023 04/05/2023 Small bowel obstruction 03/18/2023 07/0 12/2022 Parkinson's disease 06/22/2020 04/17/20 22 GERD without esophagitis 06/22/202009/2021 documented as of this encounter (statuses as of 07/11/2023) [facility] of [facility] illness Narrative* Problem Noted Date Diagnosed Date Resolved Date SBO (small bowel obstruction) 04/01/2023 04/05/2023 Small bowel obstruction 03/18/2023 07/0 12/2022 Parkinson's disease 06/22/2020 04/17/20 22 GERD without esophagitis 06/22/202009/2021 documented as of this encounter (statuses as of 07/25/2023) [facility] of [facility] Narrative* Problem Noted Date Diagnosed Date Resolved Date SBO (small bowel obstruction) 04/01/2023 04/05/2023 Small bowel obstruction 03/18/2023 07/0 12/2022 Parkinson's disease 06/22/2020 04/17/20 22 GERD without esophagitis 06/22/202009/2021 documented as of this encounter (statuses as of 07/26/2023) [facility] of Past illness Narrative* Problem Noted Date Diagnosed Date Resolved Date SBO (small bowel obstruction) 04/01/2023 04/05/2023 Small bowel obstruction 03/18/2023 07/0 12/2022 Parkinson's disease 06/22/2020 04/17/20 22 GERD without esophagitis 06/22/202009/2021 documented as of this encounter (statuses as of 08/06/2023) [facility] of [facility] illness Narrative* Problem Noted Date Diagnosed Date Resolved Date SBO (small bowel obstruction) 04/01/2023 04/05/2023 Small bowel obstruction 03/18/2023 07/0 12/2022 Parkinson's disease 06/22/2020 04/17/20 22 GERD without esophagitis 06/22/202009/2021 documented as of this encounter (statuses as of 08/24/2023) [facility] of Past illness Narrative* Problem Noted Date Diagnosed Date Resolved Date SBO (small bowel obstruction) 04/01/2023 04/05/2023 Small bowel obstruction 03/18/2023 07/0 12/2022 Parkinson's disease 06/22/2020 04/17/20 22 GERD without esophagitis 06/22/202009/2021 documented as of this encounter (statuses as of 10/25/2023) [facility] of Past illness Narrative* Problem Noted Date Diagnosed Date Resolved Date SBO (small bowel obstruction) 04/01/2023 04/05/2023 Small bowel obstruction 03/18/2023 07/0 12/2022 Parkinson's disease 06/22/2020 04/17/20 22 GERD without esophagitis 06/22/202009/2021 documented as of this encounter (statuses as of 11/01/2023) [facility] of Past illness Narrative* Problem Noted Date Diagnosed Date Resolved Date SBO (small bowel obstruction) 04/01/2023 04/05/2023 Small bowel obstruction 03/18/2023 07/0 12/2022 Parkinson's disease 06/22/2020 04/17/20 22 GERD without esophagitis 06/22/202009/2021 documented as of this encounter (statuses as of 12/07/2023) [facility] of Past illness Narrative* Problem Noted Date Diagnosed Date Resolved Date SBO (small bowel obstruction) 04/01/2023 04/05/2023 Small bowel obstruction 03/18/2023 07/0 12/2022 Parkinson's disease 06/22/2020 04/17/20 GERD without esophagitis 06/22/202009/2021 documented as of this encounter (statuses as of 12/17/2023) [facility] Discharge summary Author Delmer Ghosh [facility] April 01, 2023 1:44pm Note Date/Time March 31, 2023 10:2 9pm [facility] Medical Records Department [address] [place] [address] Emergency Department Summary 03/31/23 MR#: [id number] Acct: [id number] Name: ADINA ESCOBAR Rep #:[id number] : 1950 72 From: Matt Harris PCP: Dr. Kentrell Dhaliwal MD Status:REG ER Location: ED ADDENDUM by Dr. Delmer Ghosh MD on 04/01/23 at 1344 Patient has been's excepted at [facility]. We are waiting for a bed. We recontacted them several times. We were told there would not be a bed available. It would be probably 1 or 2 days. I then called our surgeon on-callwho does know this patient. I was about to call medicine on-call to admit her. Then, [facility] called back and they now do have [...] of Present Illness Chief Complaint: Abd Pain [facility] Medical History (Updated 04/01/23 @ 04:[address] Matt Dominguez DO) Anxiety and depression Chronic anemia CKD [...] [From Levaquin] AdvReac Vomiting Verified 03/31/23 22:24 Cujjwvk-NEJ-GiC Reductase AdvReac NEEDS Verified 03/31/23 22:24 Inhibitor [...] from others: The patient's family member Consults: [facility] ALL IMAGES (IF OBTAINED) HAVE BEEN [...] to outside hospital I did communicated with [facility] Dr. Salgado. Dr. Salgado excepted [...] % (Auto) 59.3 Lymph % (Auto) 31.9 Terry % (Auto) 7.2 Eos % (Auto) 0.2 [...] Clarity Clear Urine pH 7.0 Ur Specific Egan 1.005 Urine Protein 15 H Urine Glucose [...] Disposition Disposition: Acute Care Hospital Discharge Location: [facility] What to do if you have Problems For any increased pain, shortness of breath, bleeding, nausea or vomiting, chestpain, or any unexpected problems, contact your Primary Care Provider. Call [facility] ([phone]) or report to the closest Emergency Room. Call 911 if necessary. 04/01/23 0406 <Electronically signed by Matt Dominguez DO> Cosigner Signature (if applicable): CC: Dr. Kentrell Dhaliwal MD ~ Signed [facility] Work Phone: 1(767) 880-566607-06-2023 History of Present illness Narrative* Gertrude Mccloud RN - 03/22/2023 1:52 PM EDT Initial Contact Transition Care Management (TCM) Initial contact with patient post discharge, spoke to patient. Patient identified by name and . SUMMARY: - Patient discharged from [facility] main on 03/20/23. - Follow up appointment [...] and prevention. F/u appointment scheduled during call. Gertrude Mccloud RN * Gertrude Mccloud RN - 03/22/2023 10:50 AM EDT 2nd attempt to contact patient for an update. Left message with sister Linda for patient to return call. Gertrude Mccloud RN 03/22/2023 10:50 AM * Gertrude Mccloud RN - 03/22/2023 9:49 AM EDT 1st attempt to contact patient for an update. Left message for patient. Gertrude Mccloud RN 03/22/2023 9:56 AM documented in this encounterS[facility]07-[facility]-2023 History of Past illness Narrative* Problem Noted Date Resolved Date Malnutrition of mild degree 03/19/2023 07/0 12/2022 Small bowel obstruction 03/18/2023 03/20/20 Parkinson's disease 06/22/2020 04/17/2022 GERD without esophagitis 06/22/2020 022 documented as of this encounter (statuses as of 03/22/2023) [facility] Progress note Author Ivon Oliver [facility] March 18, 2023 2:57pm Note Date/Time March 18, 2023 2:57p [facility] Medical Records Department [address] [place] [address] Progress Note - Hospitalist 03/18/23 1455 MR#: [id number] Acct: [id number] Name: ADINA ESCOBAR Rep #:[id number] : 1950 72 From: Ivon Oliver MD PCP: Dr. Kentrell Dhaliwal MD Status:ADM IN Location: [place] [address] Reason for Visit Reason for Visit: Diagnoses [...] 03/16/23 15:24 SLA (Rec: 03/16/23 15:24 SLA [id number]) Nutrition Malnutrition Evidence of Malnutrition Exists Yes [...] % (Auto) 59.2, Lymph % (Auto) 29.6, Terry % (Auto) 8.2, Eos % (Auto) 1.9, [...] colon progressed compared to earlier. Electronically Signed: Gertrude Brasher MD at 2:55 EDT Reading Location ID and State: [address] [place] [address] Tel , Service support , Physical Exam Narrative [...] tertiary facility. She has been accepted at [facility] by Dr. Almanza and is awaiting [...] documentation, 40minutes Charges/Coding Visit Charges Inpatient E&M: 38997 [facility] 03/18/23 0937 <Electronically signed by Ivon Oliver MD> Cosigner Signature (if applicable): CC: ~ Signed [facility] Work Phone: 1(651) 719-151207-02-2023 Progress note Author Marvin Edwards [facility] March 18, 2023 8:02am Note Date/Time March 18, 2023 8:02a m [facility] Medical Records Department [address] [place] [address] Progress Note - Surgery 03/18/23 0801 MR#: [id number] Acct: [id number] Name: ADINA ESCOBAR Rep #:[id number] : 1950 72 From: Marvin mathew MD PCP: Dr. Kentrell Dhaliwal MD Status:ADM IN Location: MS3 [id number] Subjective Subjective Patient told me she was [...] 03/16/23 15:24 SLA (Rec: 03/16/23 15:24 SLA [id number]) Nutrition Malnutrition Evidence of Malnutrition Exists Yes [...] % (Auto) 59.2, Lymph % (Auto) 29.6, Terry % (Auto) 8.2, Eos % (Auto) 1.9, [...] colon progressed compared to earlier. Electronically Signed: Gertrude Brasher MD at 2:55 EDT Reading Location ID and State: [facility] / [place] Tel , Service support , Physical Exam Const oriented x3 Resp [...] 7 abdominal surgeries. Marvin Edwards MD Pager: [facility] [address] [place] [address], [address] [place] [address] Office: 03/18/23 0802 <Electronically signed by Marvin Edwards MD> Cosigner Signature (if applicable): CC: ~ Signed [facility] Work Phone: 1(115) 419-245207-01-2023 Progress note Author Ivon Oliver [facility] March 17, 2023 1:10pm Note Date/Time March 17, 2023 12:52 pm [facility] Medical Records Department [address] [place], [place] [id number] Progress Note - Hospitalist 03/17/23 1252 MR#: [id number] Acct: [id number] Name: ADINA ESCOBAR Rep #:[id number] : 1950 72 From: Ivon Oliver MD PCP: Dr. Kentrell Dhaliwal MD Status:ADM IN Location: [place] [address]-1 Reason for Visit Reason for Visit: Diagnoses [...] 03/16/23 15:24 SLA (Rec: 03/16/23 15:24 SLA [id number]) Nutrition Malnutrition Evidence of Malnutrition Exists Yes [...] 78.2 H, Lymph % (Auto) 13.4 L, Terry % (Auto) 6.5, Eos % (Auto) 1.2, [...] 16:19 EDT Reading Location ID and State: [address] [place] [address] , Service support , Physical Exam Narrative [...] documentation, 40minutes Charges/Coding Visit Charges Inpatient E&M: 69118 [facility]osp 03/17/23 1310 <Electronically signed by Ivon Oliver MD> Cosigner Signature (if applicable): CC: ~ Signed [facility] Work Phone: 1(580) 787-224707-01-2023 Discharge summary Author Ivon Oliver [facility] March 17, 2023 11:29am Note Date/Time March 17, 2023 11:28 am [facility] Medical Records Department [address] [place] [address] Instructions for Home/Discharge Instructions 03/17/23 1127 MR#: [id number] Acct: [id number] Name: ADINA ESCOBAR Rep #:[id number] : 1950 72 [...] Fragoso MD;Dr. Kentrell Dhaliwal MD ~ Signed [facility] Work Phone: 1(860) 992-945907-01-2023 Discharge summary Author Ivon [facility] March 18, 2023 4:24pm Note Date/Time March 17, 2023 11:29 am [facility] Medical Records Department [address] [place] [address] Discharge Summary 03/17/231128 MR#: [id number] Acct: [id number] Name: ADINA ESCOBAR Rep #:[id number] : 1950 72 From: Ivon Oliver MD PCP: Dr. Kentrell Dhaliwal MD Status:[facility] Date of Admission: 03/16/23 Date of Discharge: 03/18/23 Primary Care Physician: Dr. Kentrell Dhaliwal MD Consultations 03/16/23 07:37 Consult: General Surgery Routine Consulting Provider: Paulo Umanzor Reason for Consult: pSBO EMERGENT Consult: No Notified: Yes Date Notified: 03/16/23 Time Notified: [...] small bowel resection who presents to the [facility] ED on 03/16/23 with history of [...] and she was agreeable. Patient accepted to [facility] by Dr. Almanza. Physical Exam Narrative [...] Freq: Status: Active Protocol: Document 03/16/23 15:24 [facility] (Rec: 03/16/23 15:24 [facility] [id number]) Nutrition Malnutrition Evidence of Malnutrition Exists Yes [...] 78.2 H, Lymph % (Auto) 13.4 L, Terry % (Auto) 6.5, Eos % (Auto) 1.2, [...] 16:19 EDT Reading Location ID and State: [address] [place] [address] , Service support , D/C Instructions Discharge [...] Self Care Charges/Coding Visit Charges Inpatient E&M: 15356 Disch Hosp >30min 03/18/23 1624 <Electronically signed by Ivon Oliver MD> Cosigner Signature (if applicable): CC: Dr. Ivon Oliver MD; Dr. Kentrell Dhaliwal MD~ Signed [facility] Work Phone: 1(669) 803-220307-01-2023 Progress note Author Marvin Jerry [facility] March 17, 2023 7:04am Note Date/Time March 17, 2023 7:04a [facility] Medical Records Department [address] [place] [address] Progress Note - Surgery 03/17/23 0703 MR#: [id number] Acct: [id number] Name: ADINA ESCOBAR Rep #:[id number] : 1950 72 From: Marvin mathew MD PCP: Dr. Kentrell Dhaliwal MD Status:ADM IN Location: [facility] JY692-5 Subjective Subjective Patient reports she is doing [...] 03/16/23 15:24 SLA (Rec: 03/16/23 15:24 SLA [id number]) Nutrition Malnutrition Evidence of Malnutrition Exists Yes [...] IMPRESSION: NG tube as described. Electronically Signed: Gertrude Brasher MD at 7:06 EDT , Small Bowel X-Ray 03/16/23 08:50 IMPRESSION: 1. Successful Gastrografin challenge. No bowel obstruction. Documentation of contrast in the colon at 6 hours. Electronically Signed: Fox Han (Brooks), at 16:19 EDT , Physical Exam Const [...] Umanzor as needed. Marvin Edwards MD Pager: [facility] [address], [address] [place] [address] Office: 03/17/23 0704 <Electronically signed by Marvin Edwards MD> Cosigner Signature (if applicable): CC: ~ Signed [facility] Work Phone: 1(667) 618-598506-30-2023 Consult note Author Paulo Umanzor [facility] March 16, 2023 5:57pm Note Date/Time March 16, 2023 10:5 7am [facility] Medical Records Department [address] [place] [id number] Consultation - Surgical 03/16/23 1057 MR#: [id number] Acct: [id number] Name: ADINA ESCOBAR Rep #:[id number] : 1950 72 From: Paulo Escoto PCP: Dr. Kentrell Dhaliwal MD Status:ADM IN Location: [facility] TO916-5 Assessment & Plan Assessment/Plan (1) Partial small [...] for Consultation: Small bowel obstruction HPI Narrative: ADINA ESCOBAR, is a 72 F who presents to [facility] with complaints of constipation and abdominal pain. [...] reportedly done by Dr. Chicas formerly of [facility] who has since moved to [place]. 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 Ms. Escobar denies any recent colonoscopies and states that she had a single colonoscopy approximately 20 years ago, but reports that her last evaluation forthis procedure was in [facility] and she was advised to forego any colonoscopies as she was more likely to be at risk for colon perforation and development of colon cancer. [facility] Medical History (Updated 03/16/23 @ 17:52 [...] [From Levaquin] AdvReac Vomiting Verified 12/11/22 22:27 Lznowec-XTX-NaD Reductase AdvReac NEEDS Verified 12/11/22 22:27 Inhibitor [...] % (Auto) 48.5, Lymph % (Auto) 40.6, Terry % (Auto) 8.3, Eos % (Auto) 1.1, [...] Clarity Clear, Urine pH 6.0, Ur Specific Egan 1.010, Urine Protein Negative, Urine Glucose (UA) [...] compared to prior study postcholecystectomy. Electronically Signed: Gertrude Brasher MD at 5:35 EDT , KUB X-Ray 03/16/23 06:22 IMPRESSION: NG tube as described. Electronically Signed: Gertrude Brasher MD at 7:06 EDT , Charges/Coding Visit Charges Inpatient E&M: 46703 Init Hosp L2 06/30/23 1757 <Electronically signed by Paulo Umanzor MD> Cosigner Signature (if applicable): CC: Dr. Jessica Thomas MD; Dr. Paulo Umanzor MD; Dr. Kentrell Dhaliwal MD~ Signed [facility] Work Phone: 1(801) 463-853706-30-2023 Discharge summary Author Jose Stanton [facility] March 16, 2023 6:56am Note Date/Time March 16, 2023 3:47 am [facility] Medical Records Department [address] [place] [address] Emergency Department Summary 03/16/23 MR#: [id number] Acct: [id number] Name: ADINA ESCOBAR Rep #:[id number] : 1950 72 From: Jose Stanton MD PCP: Dr. Kentrell Dhaliwal MD Status:ADM IN Location: [place] [address] HPI HPI - GI History of Present [...] them was due to adhesions she states. [facility] Medical History (Updated 03/16/23 @ 06:01 by [...] [From Levaquin] AdvReac Vomiting Verified 12/11/22 22:27 Pkhpwyy-FGL-IbT Reductase AdvReac NEEDS Verified 12/11/22 22:27 Inhibitor [...] % (Auto) 48.5 Lymph % (Auto) 40.6 Terry % (Auto) 8.3 Eos % (Auto) 1.1 [...] Clarity Clear Urine pH 6.0 Ur Specific Egan 1.010 Urine Protein Negative Urine Glucose (UA) [...] compared to prior study postcholecystectomy. Electronically Signed: Gertrude Brasher MD at 5:35 EDT , Management Discussion w/another healthcare provider: Hospitalist and Financial Accounting Manager (Surgery) Discharge Plan Dx/Rx/DC Orders Clinical Impression: Partial small bowel obstruction Disposition Disposition: Acute Care Hospital [facility] What to do if you have Problems For any increased pain, shortness of breath, bleeding, nausea or vomiting, chestpain, or any unexpected problems, contact your Primary Care Provider. Call [facility] ([phone]) or report to the closest Emergency Room. [...] cc: Dr. Kentrell Dhaliwal MD ~* Signed [facility] Work Phone: 1(814) 908-799006-30-2023 History and physical note Author Jessica Thomas [facility] March 16, 2023 6:39am Note Date/Time March 16, 2023 6:31 am [facility] Medical Records Department [address] [place] [address] H&P Exam - Hospitalist 03/16/23630 MR#: [id number] Acct: [id number] Name: ADINA ESCOBAR Rep #:[id number] : 1950 72 From: Jessica Thomas MD PCP: Dr. Kentrell Dhaliwal MD Status:ADM IN Location: [facility] PH143-3 HPI - General General Date of Admission: 03/16/23 Date of Service: 03/16/23 Chief Complaint: Abdominal pain, N/V. HPI Narrative The patient is a 72 y/o F w/ PMHx: Hypothyroidism, Anxiety and Depression, Hx VTE, HLD, GERD, Hx SBO s/p 7 prior abdominal surgeries including bowel resectionwho presents to the [facility] ED on 03/16/23 with history of [...] placed and small bowel follow-through be initiated. [facility] Medical History (Updated 03/16/23 @ 06:24 [...] [From Levaquin] AdvReac Vomiting Verified 12/11/22 22:27 Cyfuabn-CIK-GiR Reductase AdvReac NEEDS Verified 12/11/22 22:27 Inhibitor [...] % (Auto) 48.5, Lymph % (Auto) 40.6, Terry % (Auto) 8.3, Eos % (Auto) 1.1, [...] Clarity Clear, Urine pH 6.0, Ur Specific Egan 1.010, Urine Protein Negative, Urine Glucose (UA) [...] compared to prior study postcholecystectomy. Electronically Signed: Gertrude Brasher MD at 5:35 EDT , Assessment & Plan Assessment/Plan (1) Partial small bowel obstruction: PLAN: Plan The patient is a 72 y/o F w/ PMHx: Hypothyroidism, Anxiety and Depression, Hx VTE, HLD, GERD, Hx SBO s/p 7 prior abdominal surgeries including bowel resectionwho presents to the [facility] ED on 03/16/23 with history of [...] 75 minutes. Charges/Coding Visit Charges Inpatient E&M: 56885 Init Hosp L3 03/16/23 0631 <Electronically signed [...] MD; Dr. Kentrell Dhaliwal MD ~* Signed [facility] Work Phone: 1(247) 601-984406-30-2023 Discharge summary Author Jose Stanton [facility] March 16, 2023 6:56am Note Date/Time March 16, 2023 3:47 am [facility] Medical Records Department [address] [place] [address] Emergency Department Summary 03/16/23 MR#: [id number] Acct: [id number] Name: ADINA ESCOBAR Rep #:[id number] : 1950 72 From: Jose Stanton MD PCP: Dr. Kentrell Dhaliwal MD Status:ADM IN Location: [place] [address]-1 HPI HPI - GI History of Present [...] them was due to adhesions she states. [facility] Medical History (Updated 03/16/23 @ 06:01 by [...] [From Levaquin] AdvReac Vomiting Verified 12/11/22 22:27 Gozpuay-CWA-GoZ Reductase AdvReac NEEDS Verified 12/11/22 22:27 Inhibitor [...] % (Auto) 48.5 Lymph % (Auto) 40.6 Terry % (Auto) 8.3 Eos % (Auto) 1.1 [...] Clarity Clear Urine pH 6.0 Ur Specific Egan 1.010 Urine Protein Negative Urine Glucose (UA) [...] compared to prior study postcholecystectomy. Electronically Signed: Gertrude Brasher MD at 5:35 EDT , Management Discussion w/another healthcare provider: Hospitalist and Financial Accounting Manager (Surgery) Discharge Plan Dx/Rx/DC Orders Clinical Impression: Partial small bowel obstruction Disposition Disposition: Acute Care Hospital [facility] What to do if you have Problems For any increased pain, shortness of breath, bleeding, nausea or vomiting, chestpain, or any unexpected problems, contact your Primary Care Provider. Call [facility] ([phone]) or report to the closest Emergency Room. [...] cc: Dr. Kentrell Dhaliwal MD ~* Signed [facility] Work Phone: [phone]) 481-841905-15-2023 Miscellaneous Notes* Telephone Encounter - Josep Drew MA - 01/29/2023 11:30 AM EDT [...] Diarrhea Omnicef [Cefdinir] Diarrhea Prednisone GI Upset Bjuugrg-Hkw-Ctm Red* Diarrhea Sulfa (Sulfonamide * Other: See Comments Leg pain Shellfish Containin* Swelling (home) [phone] (cell) Last Office Visit Date: 11/23/2022 Last [facility] Visit: Visit date not found Future Appointment: 05/25/2023 The patients preferred pharmacy has been captured for this encounter? yes Request is for script(s) to be escript to pharmacy. Josep Drew MA refill documented in this encounterS[facility]05-[facility]-2023 Miscellaneous Notes* Telephone Encounter - Husam Grant [...] Diarrhea Omnicef [Cefdinir] Diarrhea Prednisone GI Upset Zzssdcp-Zid-Hfi Red* Diarrhea Sulfa (Sulfonamide * Other: See Comments Leg pain Shellfish Containin* Swelling (home) [phone] (cell) Last Office Visit Date: 11/23/2022 Last [facility] Visit: Visit date not found Future Appointment: 05/25/2023 The patients preferred pharmacy has been captured for this encounter? yes Request is for script(s) to be escript to pharmacy. [facility] [place] Husam Grant MA documented in this encounterScci Hospital [facility]ima03-29-2023 Miscellaneous Notes* Telephone Encounter - Kentrell Dhaliwal II, MD - 12/13/2022 9:22 AM EDT Done * Telephone Encounter - Josep Drew MA - 12/12/2022 10:15 AM EDT Patient called stating she was recently seen in [facility] ER due to abdominal pain. CT Scan done and patient was informed that pain was due to recent surgery where stricture is starting to close. Patient was prescribed Bentyl x 5 days. Patient is asking if Dr. Dhaliwal could please call in [facility] and Tran for her? Please advise Josep Drew MA documented in this encounterScci Hospital [facility]ima03-28-[address] Anderson [facility] December 11, 2022 11:52pm Note Date/Time December 11, 2022 10: 21pm [facility] Medical Records Department [address] [place] [address] Emergency Department Summary 12/11/22 MR#: [id number] Acct: [id number] Name: ADINA ESCOBAR Rep #:[id number] : 1950 72 [...] Prior similar symptoms: Yes Recent Illness/Hospitalization: No [facility] Medical History (Updated 12/11/22 @ 23:50 by [...] [From Levaquin] AdvReac Vomiting Verified 12/11/22 22:27 Llojhcq-LBL-PjD Reductase AdvReac NEEDS Verified 12/11/22 22:27 Inhibitor [...] Oxygen Delivery Method Room Air Room Air [facility] History & Record Review Discussion w/independent historian: [...] % (Auto) 57.1 Lymph % (Auto) 30.6 Terry % (Auto) 9.3 Eos % (Auto) 2.1 [...] receive dose of Bentyl in the emergency [place] and prescription to go home with. She [...] your Primary Care Provider. Call [facility] ([phone]) or report to the closest Emergency Room. Call 911 if necessary. 12/11/22 2352 <Electronically signed by Mika Anderson MD> Cosigner Signature (if applicable): CC: No Primary Care Physician ~ Signed [facility] Work Phone: [phone]) 309-341503-27-2023 Miscellaneous Notes* Telephone Encounter - Husam Grant [...] Diarrhea Omnicef [Cefdinir] Diarrhea Prednisone GI Upset Ozhxfci-Xai-Hvi Red* Diarrhea Sulfa (Sulfonamide * Other: See Comments Leg pain Shellfish Containin* Swelling (home) [phone] (cell) Last Office Visit Date: 11/23/2022 Last [facility] Visit: Visit date not found Future Appointment: 05/25/2023 The patients preferred pharmacy has been captured for this encounter? yes Request is for script(s) to be escript to pharmacy. Husam Grant MA documented in this encounterScci Hospital [facility]ima03-09-2023 Miscellaneous Notes* Telephone Encounter - Husam Grant [...] or sooner if needed. documented in this encounterScci Hospital Lima03-09-2023 Instructions* Patient Instructions* Kentrell Dhaliwal II, MD - 11/23/2022 11:06 AM EST Please consider having the following Health Maintenance testing completed: PNEUMOCOCCAL: 65+(1 - PCV) DILATED RETINAL EXAM DTAP,TDAP,TD(1 - Tdap) MAMMOGRAM COLORECTAL CANCER SCREENING SHINGRIX VACCINE(1 of 2) BONE DENSITY INFLUENZA(1) If your testing is not done at a [facility] facility please provide this office with the results of your testing. documented in this encounterScci Hospital Lima03-09-2023 History of Present illness Narrative* Kentrell Dhaliwal II, MD - 11/23/2022 11:04 AM EST Images from the original note were not included. Kentrell Dhaliwal II, MD [address], [place] [address] NOEMI Escobar is a 72 year old female [...] Diarrhea Omnicef [Cefdinir] Diarrhea Prednisone GI Upset Accnvyp-Qnr-Itd Red* Diarrhea Sulfa (Sulfonamide * Other: See [...] Kentrell Dhaliwal II, M.D. documented in this encounterScci Hospital [facility]ima02-27-2023 Miscellaneous Notes* Telephone Encounter - Josep Drew MA - 11/13/2022 11:50 AM EST [...] Diarrhea Omnicef [Cefdinir] Diarrhea Prednisone GI Upset Nsgivee-Bhc-Vor Red* Diarrhea Sulfa (Sulfonamide * Other: See Comments Leg pain Shellfish Containin* Swelling (home) [phone] (cell) Last Office Visit Date: 08/02/2022 Last [facility] Visit: Visit date not found Future Appointment: 11/17/2022 The patients preferred pharmacy has been captured for this encounter? yes Request is for script(s) to be escript to pharmacy. Josep Drew LISA Patient called requesting the following refill Refill(s) Requested: Requested Prescriptions No prescriptions requested or ordered in this encounter ALLERGIES Allergen Reactions Latex Anaphylaxis Abilify [Aripiprazo* Other: See Comments Muscles couldn't get up Codeine Diarrhea Compazine [Prochlor* Myalgia Levaquin [Levofloxa* Diarrhea Omnicef [Cefdinir] Diarrhea Prednisone GI Upset Blbcxba-Cvh-Ylb Red* Diarrhea Sulfa (Sulfonamide * Other: See Comments Leg pain Shellfish Containin* Swelling (home) [phone] (cell) Last Office Visit Date: 08/02/2022 Last [facility] Visit: Visit date not found Future Appointment: 11/17/2022 The patients preferred pharmacy has been captured for this encounter? yes Request is for script(s) to be escript to pharmacy. Josep Drew MA refill documented in this encounterScci Hospital [facility]ima02-14-2023 Miscellaneous Notes* Telephone Encounter - Josep Drew MA - 10/31/2022 11:12 AM EST [...] Diarrhea Omnicef [Cefdinir] Diarrhea Prednisone GI Upset Vxjtwyy-Pkj-Xts Red* Diarrhea Sulfa (Sulfonamide * Other: See Comments Leg pain Shellfish Containin* Swelling (home) [phone] (cell) Last Office Visit Date: 08/02/2022 Last [facility] Visit: Visit date not found Future Appointment: 11/23/2022 The patients preferred pharmacy has been captured for this encounter? yes Request is for script(s) to be escript to pharmacy. Josep Drew MA refill documented in this encounterScci Hospital [facility]ima12-20-2022 Miscellaneous Notes* Telephone Encounter - Kentrell Dhaliwal II, MD - 09/05/2022 5:42 PM EST Done * Telephone Encounter - Josep Drew MA - 09/05/2022 11:05 AM EST Patient called requesting medication for UTI. States burning, frequency, pressure and urgency x 2 days. Please advise Josep Drew MA documented in this encounterScci Hospital [facility]ima11-29-2022 Miscellaneous Notes* Telephone Encounter - Husam Grant [...] Diarrhea Omnicef [Cefdinir] Diarrhea Prednisone GI Upset Vznvjkz-Mqf-Wgj Red* Diarrhea Sulfa (Sulfonamide * Other: See Comments Leg pain Shellfish Containin* Swelling (home) [phone] (cell) Last Office Visit Date: 08/02/2022 Last [facility] Visit: Visit date not found Future Appointment: Visit date not found The patients preferred pharmacy has been captured for this encounter? yes Request is for script(s) to be escript to pharmacy. Husam Grant MA documented in this encounterScci Hospital [facility]ima11-21-2022 Miscellaneous Notes* Telephone Encounter - Josep Drew MA - 08/07/2022 11:03 AM EST Patient called stating she had an appointment with Dr. Herrera and was told not to start the Carafatebecause it could cause constipation. Dr. Herrera informed patient if pain, nausea or vomiting returned she needed to go to [facility] for evaluation and treatment. Patient states she is sticking to a soft diet at this time and seems to be doing OK at this time. Josep Drew MA documented in this encounterScci Hospital Lima11-07-2022 Miscellaneous Notes* Telephone Encounter - Rosi Herbert [...] abdomen. Rosi Herbert RN documented in this encounterScci Hospital Lima11-04-2022 Instructions* Patient Instructions* Travon Rene DO - [...] 64 ounces of Gatorade. documented in this encounterScci Hospital Lima11-04-2022 History and physical note * Travon Rene DO - 07/21/2022 2:00 PM EDT Consultation requested by Dr. Kentrell Dhaliwal for an opinion regarding abd pain and SBO. My final recommendations will be communicated back to the requesting physician by way of shared medical record orfax. REASON FOR VISIT: Abdominal pain HPI: Adina Escobar is a 72 year old female [...] Diarrhea Omnicef [Cefdinir] Diarrhea Prednisone GI Upset Hzuwwuu-Xyh-Hfl Red* Diarrhea Sulfa (Sulfonamide * Other: See [...] which included preparing to see the patient, drbj-mi-khru patient care, completing clinical documentation, obtaining and/or reviewing separately obtained history, performing a medically appropriate examination, counseling and educating the pat ient/family/caregiver, and ordering medications, tests, or procedures. documented in this encounterScci Hospital Lima11-01-2022 History of Present illness Narrative* Josep Drew MA - 07/18/2022 2:34 PM EDT Spoke to patient regarding recent Hospital stay.. Patient states she has follow up with Dr. Thornton who is trying to make her [facility] TCM appointment made with Dr. Dhaliwal. Patient states she is doing better. Still fatigued. Josep Drew MA * Silvia Hicks RN - 07/18/2022 1:22 PM EDT 1st attempt to contact patient for an update. Left message for patient. Silvia Hicks RN 21:22 PM documented in this encounterScci Hospital [facility]ima10-31-2022 Hospital course Narrative * Provider [facility] - 07/17/2022 11:50 [place] [address] HEALTH INFORMATION MANAGEMENT DISCHARGE SUMMARY Patient: ADINA ESCOBAR ANUJA CARR M.D. [id number] [age] F Status: ADM IN [facility] 2922-A Date of Admission: 07/14/22 Discharge Summary Date [...] By: ANUJA WALKER M.D. Tests performed at: [address] [address] documented in this encounterScci Hospital [facility]ima10-31-2022 History of Present illness Narrative* Kentrell Pacheco MD - 07/17/2022 11:46 [place] [address] HEALTH INFORMATION MANAGEMENT PROGRESS NOTE Patient: ADINA ESCOBAR ROBERT M M.D. 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 She understands that, seems to be doing better, understands this will be a lifelong issue that may flare up at times, and she is in agreement. If it would get badenough, she would have to have surgery [place], but she seems to be improving. We will do regular diet. Report#: Dict ID [id number] / Int ID [id number] <Electronically signed by KENTRELL PACHECO M.D.> KENTRELL PACHECO M.D. cc: KENTRELL PACHECO M.D. << Signature on File>> Reported By: KENTRELL PACHECO M.D. Signed By: KENTRELL PACHECO M.D. Tests performed at: [place] [address] * Kentrell Pacheco MD - 07/17/2022 9:27 [place] [address] HEALTH INFORMATION MANAGEMENT PROGRESS NOTE Patient: ADINA ESCOBAR ROBERT M M.D. [id number] [age] F Status: ADM IN [address] [place] [address]-A DATE OF PROGRESS NOTE: 07/16/2022 LOCATION: [facility]. SUBJECTIVE: 72-year-old white female, less discomfort, nausea, [...] on her again tomorrow. Report#: Dict ID [id number] / Int ID [id number] <Electronically signed by KENTRELL PACHECO M.D.> KENTRELL PACHECO M.D. cc: KENTRELL PACHECO M.D. << Signature on File>> Reported By: KENTRELL PACHEOC M.D. Signed By: KENTRELL PACHECO M.D. Tests performed at: [address] [address] * Provider [facility] - 07/16/2022 3:17 [place] [address] PROGRESS NOTES Patient: ADINA ESCOBAR I ANUJA WALKER M.D. [id number] [age] F Status: ADM IN [address] [place] [address]-A Report Date & Time: 07/16/22 1517 Subjective [...] Reviewed - Daily Labs/Vitals/Meds/Orders Hematology Range/Units 07/16 458 Hematology WBC 4.5 - 10.0 x10(3) 6.4 [...] % (Auto) 16.0 - 48.0 % 39.6 Terry % (Auto) 4.3 - 11.2 % 9.0 Eos % (Auto) 0.5 - 4.9 % 5.3 H Baso % (Auto) 0.0 - 1.0 % 1.0 Neut # (Auto) 1.40 - 6.50 x10(3) 2.90 Lymph # (Auto) 1.00 - 3.50 x10(3) 2.50 Terry # (Auto) 0.30 - 0.80 x10(3) 0.60 Eos # (Auto) 0.00 - 0.54 x10(3) 0.30 Baso # (Auto) 0.00 - 0.10 x10(3) 0.10 Chemistry Range/Units 07/16 458 Chemistry Sodium 135 - 145 mmol/L 142 [...] 830 97.9 81 20 140/65 99 07/16 0830 97.9 81 20 140/65 99 07/16 0800 97.9 81 20 140/65 99 07/15 2325 98.0 76 18 165/83 100 07/15 2133 98.2 68 17 137/62 100 07/15 1551 98.2 68 17 13762 100 Intake & Output 07/16 0700 07/15 [...] << Signature on File>> Reported By: ANUJA AWLKER M.D. Signed By: ANUJA WALKER M.D. Tests performed at: [place] [address] * Chelle Anton MD - 07/15/2022 2:51 [place] [address] HEALTH INFORMATION MANAGEMENT PROGRESS NOTE Patient: ADINA ESCOBAR I CHELLE ANTON M.D. [id number] [age] F Status: ADM IN [facility] 2922-A DATE OF PROGRESS NOTE: 07/15/2022 I [...] Surgery on this admission. Report#: Dict ID [id number] / Int ID [id number] <Electronically signed by CHELLE ANTON M.D.> CHELLE ANTON M.D. cc: CHELLE ANTON M.D. << Signature on File>> Reported By: CHELLE ANTON M.D. Signed By: CHELLE ANTON M.D. Tests performed at: [place] [address] * Kentrell Pacheco MD - 07/15/2022 12:48 [place] [address] HEALTH INFORMATION MANAGEMENT PROGRESS NOTE Patient: ADINA ESCOBAR I KENTRELL PACHECO M.D. [id number] [age] F Status: ADM IN [facility]-A DATE OF PROGRESS NOTE: 07/15/2022 Tara doing the note. SUBJECTIVE: 72-year-old white female, did have a bowel movement yesterday, feeling a little better today. OBJECTIVE: VITAL SIGNS: Stable, afebrile. ABDOMEN: No acute peritoneal signs. KUB pending today. ASSESSMENT: 72-year-old white female, partial small bowel obstruction, maybe improving. PLAN: To slowly advance diet as tolerated. Report#: Dict ID [id number] / Int ID [id number] <Electronically signed by KENTRELL PACHECO M.D.> KENTRELL PACHECO M.D. cc: KENTRELL PACHECO M.D. << Signature on File>> Reported By: KENTRELL PACHECO M.D. Signed By: KENTRELL PACHECO M.D. Tests performed at: [address] [address] * Provider [facility] - 07/15/2022 10:48 [place] [address] PROGRESS NOTES Patient: CHINO ESCOBARANUJA SOSA M.D. [id number] [age] F Status: ADM IN [facility] 2922-A Report Date & Time: 07/15/22 1048 [...] 07/15 0554 RA 07/15 0554 95 RA 07/14 2208 98.0 72 20 146/74 100 07/14 1953 [...] MG BID 07/14 0900 I 07/15 PO 0915 Bupropion HCl 150 MG DAILY 07/14 0900 AC 07/15 PO 0915 Ezetimibe 10 MG QDAY 07/14 0900 AC 07/15 PO 0915 Pantoprazole Sodium 40 MG QDAY 07/14 0900 AC 07/15 Sodium Chloride 10 ML IV [...] By: ANUJA WALKER M.D. Tests performed at: [address] [address] documented in this encounterScci Hospital Lima10-31-2022 Hospital Discharge instructions* Instructions* [facility]17[facility] 11:29 [place] [address] HEALTH INFORMATION MANAGEMENT IP DISCHARGE INSTRUCTIONS Patient: ADINA ESCOBAR I ANUJA WALKER M.D. [id number] [age] F Status: ADM IN [address] [place] [address]-A Date of Admission: 07/14/22 Date of Discharge: [...] VOMITING #10 TAB, Ref 0 Prescribed by STUART BARBOSA D.O. on 04/21/22 Last Taken: At [...] SUGGESTIONS. THANK YOU FOR CHOOSING [facility]. << Signature on File>> Reported By: ANUJA WALKER M.D. Signed By: ANUJA WALKER M.D. Tests performed at: [address] [address] documented in this encounterScci Hospital Lima10-31-2022 Miscellaneous Notes* Telephone Encounter - Husam Grant [...] Diarrhea Omnicef [Cefdinir] Diarrhea Prednisone GI Upset Suocrru-Fjo-Mhf Red* Diarrhea Sulfa (Sulfonamide * Other: See Comments Leg pain Shellfish Containin* Swelling (home) [phone] (cell) Last Office Visit Date: 05/30/2022 Last [facility] Visit: Visit date not found Future Appointment: Visit date not found The patients preferred pharmacy has been captured for this encounter? yes Request is for script(s) to be escript to pharmacy. Husam Grant MA documented in this encounterScci Hospital Lima10-28-2022 [place] [address] HEALTH INFORMATION MANAGEMENT CONSULTATION Patient: ADINA ESCOBAR I KENTRELL PACHECO M.D. [id number] [age] F Status: ADM IN [facility] 2922-A DATE OF CONSULTATION: 07/14/2022 LOCATION: [facility]. REQUESTING PHYSICIAN: Hospitalist. HISTORY OF PRESENT ILLNESS: [...] that. She gets her colonoscopies done in [place]. The last one was okay, but she [...] NEURO, MUSCULOSKELETAL SKIN, HEAD, NECK, CARDIAC, RESPIRATORY, CARROTER, BREASTS: All negative GI: Positive just for [...] be referred back up to the [facility] [place] and she is in agreement to that. So, we will follow along with the hospitalist and check daily films. Report#: Dict ID [id number] / Int ID [id number] 07/16/22 0836 TARA,KENTRELL M M.D. cc: KENTRELL PACHECO M.D. << Signature on File>> Reported By: KENTRELL PACHECO M.D. Signed By: KENTRELL PACHECO M.D. Tests performed at: [place] [address] [place], [place] [address] D[facility]zcNov[facility]10-28-[facility]22 Consult note* Kentrell Pacheco MD - 07/14/2022 5:02 [place] [address] HEALTH INFORMATION MANAGEMENT CONSULTATION Patient: ADINA ESCOBAR I KENTRELL PACHECO M.D. [id number] [age] F Status: ADM IN [facility] 2922-A DATE OF CONSULTATION: 07/14/2022 LOCATION: [facility]. REQUESTING PHYSICIAN: Hospitalist. HISTORY OF PRESENT ILLNESS: [...] that. She gets her colonoscopies done in [place]. The last one was okay, but she [...] NEURO, MUSCULOSKELETAL SKIN, HEAD, NECK, CARDIAC, RESPIRATORY, CARROTER, BREASTS: All negative GI: Positive just for [...] be referred back up to the [facility] [place] and she is in agreement to that. So, we will follow along with the hospitalist and check daily films. Report#: Dict ID [id number] / Int ID [id number] <Electronically signed by KENTRELL PACHECO M.D.> 07/16/22 0836 KENTRELL PACHECO M.D. cc: KENTRELL PACHECO M.D. << Signature on File>> Reported By: KENTRELL PACHECO M.D. Signed By: KENTRELL PACHECO M.D. Tests performed at: [address] [address] * Chelle Anton MD - 07/14/2022 1:00 [place] [address] HEALTH INFORMATION MANAGEMENT CONSULTATION Patient: ADINA ESCOBAR I CHELLE ANTON M.D. [id number] [age] F Status: ADM IN [facility] 2922-A DATE OF CONSULTATION: 07/14/2022 ADDITIONAL [...] and continue supportive care. Report#: Dict ID [id number] / Int ID [id number] <Electronically signed by CHELLE ANTON M.D.> 07/15/22 0914 CHELLE ANTON M.D. cc: CHELLE ANTON M.D. << Signature on File>> Reported By: CHELLE ANTON M.D. Signed By: CHELLE ANTON M.D. Tests performed at: [place] [address] documented in this encounterScci Hospital Lima10-28-20[place] [address] HEALTH INFORMATION MANAGEMENT CONSULTATION Patient: ADINA ESCOBAR I CHELLE ANTON M.D. [id number] [age] F Status: ADM IN [facility] 2922-A DATE OF CONSULTATION: 07/14/2022 ADDITIONAL [...] and continue supportive care. Report#: Dict ID [id number] / Int ID [id number] 07/15/22 0914 CHELLE ANTON M.D. cc: CHELLE ANTON M.D. << Signature on File>> Reported By: CHELLE ANTON M.D. Signed By: CHELLE ANTON M.D. Tests performed at: [address] [address] KbirfNov[facility]10-28-2022 History and physical note* Provider [facility] - 07/14/2022 2:56 [place] [address] HISTORY AND PHYSICAL Patient: ADINA ESCOBAR I Attending: ADRIEN BROWN M.D. PCP: KENTRELL DHALIWAL II, M.D. [id number] [age] F Status: ADM IN [facility] 2922-A Report Date & Time: 07/14/22 [...] levofloxacin (From LEVAQUIN) (Severe, DIARRHEA/ DIAPHORESIS/VOMITING 07/13/22) Ngdrqqf-KCQ-IgT Reductase Inhibitor (Intermediate, LEG PAIN, DIFFICULTY AMBULATING [...] PO Q6HPRN PRN NAUSEA Labs/Vitals/Meds Hematology Range/Units 07/13 2327 Hematology WBC 4.5 - 10.0 x10(3) [...] % (Auto) 16.0 - 48.0 % 36.4 Terry % (Auto) 4.3 - 11.2 % 7.4 Eos % (Auto) 0.5 - 4.9 % 0.8 Baso % (Auto) 0.0 - 1.0 % 0.9 Neut # (Auto) 1.40 - 6.50 x10(3) 5.80 Lymph # (Auto) 1.00 - 3.50 x10(3) 3.90 H Terry # (Auto) 0.30 - 0.80 x10(3) 0.80 Eos # (Auto) 0.00 - 0.54 x10(3) 0.10 Baso # (Auto) 0.00 - 0.10 x10(3) 0.10 Chemistry Range/Units 07/13 2228 Chemistry Sodium 135 - 145 mmol/L 134 [...] 8.8 - 10.2 mg/dL 9.4 Urine Tests 07/13 2327 Urines Urine Color (YELLOW) YELLOW Urine Appearance (CLEAR) CLEAR Urine pH (5.0 - 8.0) 6.0 Ur Specific Egan (1.001 - 1.035) 1.010 Urine Protein (NEGATIVE [...] 252 Active VTE Prophylaxis Med Addressed 07/14 249 Active Plan Plans Time Spent 45 min Additional Comments FULL CODE Eliquis Inpatient <Electronically signed by ADRIEN BROWN M.D.> 07/14/22 0519 ADRIEN BROWN M.D. cc: << Signature on File>> Reported By: ADRIEN BROWN M.D. Signed By: ADRIEN BROWN M.D. Tests performed at: [address] [address] documented in this encounterScci Hospital Lima10-24-2022 Miscellaneous Notes* Telephone Encounter - Kentrell Dhaliwal II, MD - 07/10/2022 6:33 PM EDT Stop Augmentin New prescriptions at the pharmacy * Telephone Encounter - Josep Drew MA - 07/10/2022 4:22 PM EDT Patient called stating she was released from ER on 07/07. She was treated for UTI and given 875mg of Augmentin. Patient is having difficulty with medication. Diarrhea, nausea and unable to eat. Patient is asking if Dr. Dhaliwal would please call her in something different? Please advise Josep Drew MA documented in this encounterScci Hospital Lima10-21-2022 Miscellaneous Notes* Telephone Encounter - Husam Grant [...] away. Husam Grant MA documented in this encounterScci Hospital Lima10-18-2022 Miscellaneous Notes* Telephone Encounter - Liliana Sainz [...] Diarrhea Omnicef [Cefdinir] Diarrhea Prednisone GI Upset Checqhj-Jnd-Qtf Red* Diarrhea Sulfa (Sulfonamide * Other: See Comments Leg pain Shellfish Containin* Swelling (home) [phone] (cell) Last Office Visit Date: 02/28/2022 Last [facility] Visit: Visit date not found Future Appointment: Visit date not found The patients preferred pharmacy has been captured for this encounter? yes Request is for script(s) to be escript to pharmacy. Liliana Sainz documented in this encounterScci Hospital Lima10-05-2022 Miscellaneous Notes* Telephone Encounter - Kentrell Dhaliwal [...] advise Husam Grant MA documented in this encounterScci Hospital Lima10-03-2022 Miscellaneous Notes* Telephone Encounter - Husam Grant [...] Diarrhea Omnicef [Cefdinir] Diarrhea Prednisone GI Upset Flckgeg-Iwn-Efu Red* Diarrhea Sulfa (Sulfonamide * Other: See Comments Leg pain Shellfish Containin* Swelling (home) [phone] (cell) Last Office Visit Date: 05/30/2022 Last [facility] Visit: Visit date not found Future Appointment: 07/20/2022 The patients preferred pharmacy has been captured for this encounter? yes Request is for script(s) to be escript to pharmacy. Husam Grant MA documented in this encounterScci Hospital Lima09-20-2022 Miscellaneous Notes* Telephone Encounter - Husam Grant [...] Diarrhea Omnicef [Cefdinir] Diarrhea Prednisone GI Upset Ivyoouj-Zcm-Tln Red* Diarrhea Sulfa (Sulfonamide * Other: See Comments Leg pain Shellfish Containin* Swelling (home) [phone] (cell) Last Office Visit Date: 02/28/2022 Last [facility] Visit: Visit date not found Future Appointment: Visit date not found The patients preferred pharmacy has been captured for this encounter? yes Request is for script(s) to be escript to pharmacy. Husam Grant MA documented in this encounterScci Hospital Lima09-20-2022 Miscellaneous Notes* Telephone Encounter - Josep Drew MA - 06/06/2022 1:38 PM EDT [...] Diarrhea Omnicef [Cefdinir] Diarrhea Prednisone GI Upset Tugjgoh-Flu-Aiu Red* Diarrhea Sulfa (Sulfonamide * Other: See Comments Leg pain Shellfish Containin* Swelling (home) [phone] (cell) Last Office Visit Date: 05/30/2022 Last [facility] Visit: Visit date not found Future Appointment: 07/20/2022 The patients preferred pharmacy has been captured for this encounter? yes Request is for script(s) to be escript to pharmacy. Josep Drew MA refill documented in this encounterScci Hospital Lima09-13-2022 History of Present illness Narrative* Kentrell Dhaliwal II, MD - 05/30/2022 10:27 AM EDT Transitional Care Management TCM Eligibility Documentation The following information was gathered during the initial Patient Outreach Encounter. No flowsheet data found. Summary Discharged from: [facility] Admit Date: 05/10/2022 Admitted for: Syncope R/T Polypharmacy, Nausea and vomiting Husam Grant MA Provider Documentation Adina Escobar is a 71 year old female [...] 30, 2022 10:27 AM documented in this encounterScci Hospital Lima09-02-2022 Miscellaneous Notes* Telephone Encounter - Husam Grant [...] PM EDT No * Telephone Encounter - Josep Drew MA - 05/18/2022 12:19 PM EDT Patient called stating she was recently taking augmentin however, when she went into the Hospital they took her off of the medication. Patient is asking if she should be back on medication again? Please advise Josep Drew MA documented in this encounterScci Hospital Lima09-01-2022 Miscellaneous Notes* Telephone Encounter - Josep Drew MA - 05/18/2022 12:21 PM EDT [...] Diarrhea Omnicef [Cefdinir] Diarrhea Prednisone GI Upset Glzfzym-Hsr-Qtc Red* Diarrhea Sulfa (Sulfonamide * Other: See Comments Leg pain Shellfish Containin* Swelling (home) [phone] (cell) Last Office Visit Date: 04/19/2022 Last [facility] Visit: Visit date not found Future Appointment: 05/24/2022 The patients preferred pharmacy has been captured for this encounter? yes Request is for script(s) to be escript to pharmacy. Josep Drew MA refill documented in this encounterScci Hospital Lima08-24-2022 [place] [address] HEALTH INFORMATION MANAGEMENT CONSULTATION Patient: ADINA ESCOBAR I KENTRELL PACHECO M.D. [id number] [age] F Status: ADM [facility] 2054-A DATE OF CONSULTATION: 05/09/2022 REQUESTING PHYSICIAN: Hospitalist [facility] [place] HISTORY OF PRESENT ILLNESS: A 71-year-old white [...] colonoscopy 5 to 10 years ago in [place], very difficult to get through. They recommended [...] episodes. CARDIAC: Negative. RESPIRATORY: Negative. BREAST: Negative. CARROTER: Negative. UROLOGIC: Negative. GI: Positive only for [...] this point, and this surgical eval of Adina Escobar will be available as needed. Report#: Dict ID [id number] / Int ID [id number] 05/10/22 1055 KENTRELL PACHECO M.D. cc: KENTRELL PACHECO M.D. << Signature on File>> Reported By: KENTRELL PACHECO M.D. Signed By: KENTRELL PACHECO M.D. Tests performed at: [address] [address] NeyjfNovant Health Franklin Medical Center08-23-2022 [place] [address] HEALTH INFORMATION MANAGEMENT CONSULTATION Patient: ADINA ESCOBAR I DALILA GRAY C.N.P. [id number] [age] F [facility] DATE OF CONSULTATION: 05/09/2022 TIME: 0900. [...] HISTORY: States that her father from an ID at 72. Her mom had emphysema. SOCIAL HISTORY: Socially, she has never been a smoker. No alcohol or recreational drug use. Lives at home with her sister and pmwapqq-hr-enw. REVIEW OF SYSTEMS: As per HPI. The [...] EXTREMITIES: With no cyanosis or edema. SKIN: [place], warm, dry. LABORATORY DATA: WBC 17.6 which [...] rule out PE as (more content not included)...[facility]08-23-2022 History of Present illness Narrative* MAKSIM Valenzuela - 05/09/2022 10:53 AM EDT GLENNY scheduled for 05/24/22 Zoloft, Ambien, Zanaflex, and Levbid discontinued. documented in this encounterScci Hospital Lima08-19-2022 Miscellaneous Notes* Telephone Encounter - Kentrell Dhaliwal II, MD - 05/05/2022 5:11 PM EDT resent * Telephone Encounter - Josep Drew MA - 05/05/2022 3:50 PM EDT Patient called stating the RX for Ambien that DR. Dhaliwal sent to [facility] was not received by the Pharmacy. Could Dr. Dhaliwal please resend? Josep Drew MA documented in this encounterScci Hospital Lima08-19-2022 Miscellaneous Notes* Telephone Encounter - Husam Grant MA - 05/05/2022 3:53 PM EDT [employer] fax in response to patient's Tizanidine HCL 4mg tablet. [employer] states that no prior authorization is needed for the amount listed (4 mg tablet Tizanidine HCL). Husam Grant MA documented in this encounterScci Hospital Lima08-19-2022 Miscellaneous Notes* Telephone Encounter - Josep Drew MA - 05/05/2022 7:53 AM EDT [...] Diarrhea Omnicef [Cefdinir] Diarrhea Prednisone GI Upset Baabeoc-Zeq-Jbs Red* Diarrhea Sulfa (Sulfonamide * Other: See Comments Leg pain Shellfish Containin* Swelling (home) [phone] (cell) Last Office Visit Date: 02/28/2022 Last [facility] Visit: Visit date not found Future Appointment: Visit date not found The patients preferred pharmacy has been captured for this encounter? yes Request is for script(s) to be escript to pharmacy. Josep Drew MA refill documented in this encounterScci Hospital Lima08-18-2022 Miscellaneous Notes* Telephone Encounter - Gladys Mauricio RN - 05/04/2022 10:04 AM EDT Called to complete ER follow up but patient did not answer and VM was left for return call. Patienthad an ER visit at [facility] on 05/03/22 for UTI. Gladys Mauricio RN documented in this encounterScci Hospital Lima08-18-2022 Miscellaneous Notes* Telephone Encounter - Husam Grant [...] Diarrhea Omnicef [Cefdinir] Diarrhea Prednisone GI Upset Rdzaxsz-Ppi-Jcn Red* Diarrhea Sulfa (Sulfonamide * Other: See Comments Leg pain Shellfish Containin* Swelling (home) [phone] (cell) Last Office Visit Date: 04/19/2022 Last [facility] Visit: Visit date not found Future Appointment: 07/20/2022 The patients preferred pharmacy has been captured for this encounter? yes Request is for script(s) to be escript to pharmacy. Husam Grant MA documented in this encounterScci Hospital Lima08-17-2022 Miscellaneous Notes* Telephone Encounter - Kentrell Dhaliwal [...] she would like prescription sent to [facility] in [place]. Prescription is either Zetia or Colestid. Husam Grant MA documented in this encounterScci Hospital Lima08-08-2022 History of Present illness Narrative* Jasmin Schmidt RN - 04/24/2022 2:16 PM EDT Patient can be scheduled for ER Follow up if calls back to . [facility] DE[facility] FOLLOW UP INITIAL CONTACT Provider Action/FYI: SUMMARY: -Patient discharged from [facility] ED on 04/21/2022. -Follow up appointment . [...] culture. Jasmin Schmidt RN documented in this encounterScci Hospital Lima08-05-2022 Emergency department Note * Stuart Morales Current - 04/21/2022 2:15 [place] [address] HEALTH INFORMATION MANAGEMENT EMERGENCY DEPARTMENT REPORT Patient: ADINA ESCOBAR I FAMILIA,STUART Armenta D.O. [id number] [age] F Status: DEP ER ED [...] home, some Zofran for nausea. I did family and marriage counsellor her if she has worsening symptoms, increasing [...] get a stool culture. Report#: Dict ID [id number] / Int ID [id number] <Electronically signed by STUART BARBOSA D.O.> 04/21/22 1705 STUART BARBOSA D.O. cc: STUART BARBOSA D.O.; KENTRELL DHALIWAL II, M.D. << Signature on File>> Reported By: STUART BARBOSA D.O. Signed By: STUART BARBOSA D.O. Tests performed at: [address] [address] documented in this encounterScci Hospital Lima08-05-2022 Miscellaneous Notes* Telephone Encounter - Josep Drew MA - 04/21/2022 1:05 PM EDT Fax received from [employer] regarding Prior Auth for TIZANIDINE HCL 4 mg tablet. NO PRIOR AUTH NEEDED. Josep Drew MA documented in this encounterScci Hospital Lima08-04-2022 Miscellaneous Notes* Telephone Encounter - Kentrell Dhaliwal II, MD - 04/20/2022 4:35 PM EDT I would suggest that we send prescription for a couple of weeks for local pharmacy to see how she does with the medication before we send it to [place] I can send a 1 week supply of Colestid to what ever local pharmacy she would like documented in this encounterScci Hospital Lima08-03-2022 History of Present illness Narrative* Kentrell Dhaliwal II, MD - 04/19/2022 1:56 PM EDT Images from the original note were not included. Kentrell Dhaliwal II, MD [address], [place] [address] SUBJECTIVE Adina Escobar is a 71 year old female [...] Diarrhea Omnicef [Cefdinir] Diarrhea Prednisone GI Upset Rlnlfzj-Fqe-Rea Red* Diarrhea Sulfa (Sulfonamide * Other: See [...] arise. - Discussed diabetic education issues of snf diabetic complications, hypoglycemic symptoms, hyperglycemic symptoms, diet, medications- side effects and need for compliance, importance of exercise, importance of appointments with Pumping Supervisor and importance of annual examinations with Opthalmology [...] did mention that he is also a tractor engine mechanic and she should discuss her gastrointestinal issues [...] Kentrell Dhaliwal II, M.D. documented in this encounterScci Hospital Lima08-03-2022 Instructions* Patient Instructions* Kentrell Dhaliwal II, MD - 04/19/2022 1:10 PM EDT Please consider having the following Health Maintenance testing completed: PNEUMOCOCCAL: 65+(1 - PCV) DILATED RETINAL EXAM DTAP,TDAP,TD(1 - Tdap) MAMMOGRAM COLORECTAL CANCER SCREENING SHINGRIX VACCINE(1 of 2) BONE DENSITY If your testing is not done at a [facility] facility please provide this office with the results of your testing. documented in this encounterScci Hospital Lima07-19-2022 Miscellaneous Notes* Telephone Encounter - Husam Grant MA - 04/04/2022 7:59 AM EDT Pharmacy faxed requesting the following refill Refill(s) Requested: Pending Prescriptions Disp Refills SERTRALINE 50 MG TABLET 30 tablet 0 Sig: TAKE 1 TABLET BY MOUTH ONCE DAILY GENNA: Yes ALLERGIES Allergen Reactions Latex Anaphylaxis Codeine Diarrhea Compazine [Prochlor* Myalgia Levaquin [Levofloxa* Diarrhea Omnicef [Cefdinir] Diarrhea Prednisone GI Upset Sycdiqr-Tkw-Epz Red* Diarrhea Sulfa (Sulfonamide * Other: See Comments Leg pain (home) [phone] (cell) Last Office Visit Date: 02/28/2022 Last [facility] Visit: Visit date not found Future Appointment: 04/19/2022 The patients preferred pharmacy has been captured for this encounter? yes Request is for script(s) to be escript to pharmacy. Husam Grant MA documented in this encounterScci Hospital Lima07-18-2022 Miscellaneous Notes* Telephone Encounter - Husam Grant [...] Diarrhea Omnicef [Cefdinir] Diarrhea Prednisone GI Upset Wlytvnb-Omb-Dgj Red* Diarrhea Sulfa (Sulfonamide * Other: See Comments Leg pain (home) [phone] (cell) Last Office Visit Date: 02/28/2022 Last [facility] Visit: Visit date not found Future Appointment: 04/19/2022 The patients preferred pharmacy has been captured for this encounter? yes Request is for script(s) to be escript to pharmacy. Husam Grant MA documented in this encounterScci Hospital Lima07-05-2022 Miscellaneous Notes* Telephone Encounter - Husam Grant [...] Diarrhea Omnicef [Cefdinir] Diarrhea Prednisone GI Upset Pstjmjh-Bif-Vnd Red* Diarrhea Sulfa (Sulfonamide * Other: See Comments Leg pain (home) [phone] (cell) Last Office Visit Date: 02/28/2022 Last [facility] Visit: Visit date not found Future Appointment: 04/19/2022 The patients preferred pharmacy has been captured for this encounter? yes Request is for script(s) to be escript to pharmacy. Husam Grant MA documented in this encounterScci Hospital Lima06-16-2022 Miscellaneous Notes* Telephone Encounter - Josep Drew MA - 03/02/2022 9:24 AM EDT Called patient to inform of Dr. Dhaliwal message. Patient states understanding and will call her Gastro to see what medication he would recommend. Josep Drew MA * Telephone Encounter - Kentrell Dhaliwal II, MD - 03/01/2022 4:08 PM EDT If the Celebrex is not helping then stop The Zoloft may actually help the abdominal pain If she wants to try something else then she needs to call the tractor engine mechanic for their recommendations on what to prescribe as the rest of the options left to try may affect her bowels * Telephone Encounter - Josep Drew MA - 03/01/2022 3:48 PM EDT Called patient to clarify area of pain. Patient states she is having abdominal pain. Patient statesI am taking Celexa but it is not helping the pain. I informed patient that Celexa is not for painand I did not see it on her med list. I believe she may be referring to Celebrex. Please advise Josep Drew MA * Telephone Encounter - Kentrell Dhaliwal II, MD - 03/01/2022 11:44 AM EDT I did send in Zoloft to try. Is she referring to abdominal pain or joint or muscle pain? * Telephone Encounter - Josep Drew MA - 03/01/2022 11:07 AM EDT Patient called stating she thought Dr. Dhaliwal was going to call something to her Pharmacy for her pain. She wanted to verify with Dr. Dhaliwal prior to making the trip to the Pharmacy. Please advise Josep Drew MA documented in this encounterScci Hospital Lima06-14-2022 NoteHNO ID: [id number] Author: Kentrell Dhaliwal II, MD Service: ? Author Type: Physician Type: Progress Notes Filed: 03/06/2022 8:53 PM Note Text: Kentrell Dhaliwal II, MD [address], [place] [address] NOEMI Escobar is a 71 year old [...] [Cefdinir] Diarrhea - Prednisone GI Upset - Ipkifcw-Vdc-Rcb Red* Diarrhea - Sulfa (Sulfonamide * Other: [...] diaphoretic. HENT: Head: Normo (more content not included)...[facility]06-14-2022 History of Present illness Narrative* Kentrell Dhaliwal II, MD - 02/28/2022 6:10 PM EDT Images from the original note were not included. Kentrell Dhaliwal II, MD [address], [address] [place] [address] SUBJECTIVE Adina Escobar is a 71 year old female [...] Diarrhea Omnicef [Cefdinir] Diarrhea Prednisone GI Upset Bvjaazc-Qtm-Amm Red* Diarrhea Sulfa (Sulfonamide * Other: See [...] Kentrell Dhaliwal II, M.D. documented in this encounterScci Hospital [facility]ima06-08-2022 Miscellaneous Notes* Telephone Encounter - Kentrell Dhaliwal [...] up Sunday. Liliana Sainz documented in this encounterScci Hospital [facility]ima05-20-2022 NoteHNO ID: [id number] Author: Maximo Benavides RN Service: ? Author Type: Registered Nurse Type: Progress Notes Filed: 02/06/2022 7:50 AM Note Text: TRANSITIONAL CARE MANAGEMENT (TCM) COMMUNITY MONITORING PROGRAM - [place]ANES[place] Provider Action/FYI: ? Unable to reach patient x 2 attempts Maxiom Benavides RN SUMMARY: Pt discharged from [facility] on 02/01/2022 Admitted for: SBO Contact made with patient: No - 2nd unsuccessful attempt - end outreach and close encounter Repeat message left on cell phone/telephone answering device requesting patient return my call ([phone]). Outreach ended Maximo Benavides [facility]05-20-2022 Miscellaneous Notes* Telephone Encounter - Josep Drew MA - 02/03/2022 11:56 AM EDT Pharmacy faxed requesting the following refill Refill(s) Requested: Pending Prescriptions Disp Refills ZOLPIDEM 10 MG TABLET 30 tablet 0 Sig: TAKE 1 TABLET BY MOUTH EVERY DAY AT BEDTIME NEEDED FOR INSOMNIA VIJI Class: C-IV GENNA: Yes ALLERGIES Allergen Reactions Latex Anaphylaxis Codeine Diarrhea Compazine [Prochlor* Myalgia Levaquin [Levofloxa* Diarrhea Omnicef [Cefdinir] Diarrhea Prednisone GI Upset Jxpwnsm-Tyw-Jrg Red* Diarrhea Sulfa (Sulfonamide * Other: See Comments Leg pain (home) [phone] (cell) Last Office Visit Date: 01/05/2022 Last Distance Health Visit: Visit date not found Future Appointment: 04/19/2022 The patients preferred pharmacy has been captured for this encounter? yes Request is for script(s) to be escript to pharmacy. Josep Drew MA refill documented in this encounterScci Hospital [facility]ima05-20-2022 History of Present illness Narrative* Maximo Benavides RN - 02/03/2022 10:13 AM EDT TRANSITIONAL CARE MANAGEMENT (TCM) COMMUNITY MONITORING PROGRAM - [place]ANESSA Provider Action/FYI: Unable to reach patient x 2 attempts Maximo Benavides RN SUMMARY: Pt discharged from [facility] on 02/01/2022 Admitted for: SBO Contact made with patient: No - 2nd unsuccessful attempt - end outreach and close encounter Repeat message left on cell phone/telephone answering device requesting patient return my call ([phone]). Outreach ended Maximo Benavides RN * Maximo Benavides RN - 02/02/2022 10:37 AM EDT TRANSITIONAL CARE MANAGEMENT (TCM) COMMUNITY MONITORING PROGRAM - [place] Provider Action/FYI: SUMMARY: Pt discharged from [facility] on 02/01/2022. Admitted for: SBO Contact made with patient: No - next outreach attempt will be on next business day Message left on cell phone/telephone answering device requesting patient return my call ([phone]). Outreach ended Maximo Benavides RN documented in this encounterScci Hospital Lima05-19-2022 NotePatient Outreach (BRENDA) ADINA ESCOBAR I ([id number]) 1950 F Date Time Provider Department 02/02/22 MAXIMO BENAVIDES During your visit today, we recorded the following information about you: Maximo Benavides RN 02/06/2022 7:50 AM Signed TRANSITIONAL CARE MANAGEMENT (TCM) COMMUNITY MONITORING PROGRAM - JANESSA Provider Action/FYI: SUMMARY: Pt discharged from [facility] on 02/01/2022. Admitted for: SBO Contact made with patient: No - next outreach attempt will be on next business day Message left on cell phone/telephone answering device requesting patient return my call ([phone]). Outreach ended DAVID Quick RN 02/06/2022 7:50 AM Signed TRANSITIONAL CARE MANAGEMENT (TCM) COMMUNITY MONITORING PROGRAM - JANESSA Provider Action/FYI: ? Unable to reach patient x 2 attempts Maximo Benavides RN SUMMARY: Pt discharged from [place] on 02/01/2022 Admitted for: SBO Contact made with patient: No - 2nd unsuccessful attempt - end outreach and close encounter Repeat message left on cell phone/telephone answering device requesting patient return my call ([phone]). Outreach ended Maximo Benavides RN Allergies As of Date: 02/02/2022 Noted Allergy Reaction LATEX 06/22/2020 10 - Anaphylaxis CODEINE 06/22/2020 6 - Diarrhea COMPAZINE (PROCHLORPERAZINE) 06/22/2020 17 - Myalgia LEVAQUIN (LEVOFLOXACIN) 06/22/2020 6 - Diarrhea OMNICEF (CEFDINIR) 06/22/2020 6 - Diarrhea PREDNISONE 08/30/2021 8 - GI Upset RULXYJY-KPG-JZL REDUCTASE INHIBIT*06/22/2020 6 - Diarrhea SULFA (SULFONAMIDE ANTIBIOTICS) 06/15/2020 14 - Other: See Comments Comments: Leg pain Date Reviewed: 01/17/2022 Reviewed by: Fifi Prather MA - Fully Assessed Reason for Visit: Transition Of Care [4074] Cmt: [facility] Discharged 02/01/2022. TCM Initial encounter Prescriptions [...] Hypothyroidism, acquired [E03.9] 08/30/2021 Encounter Status:Closed by MAXIMO BENAVIDES on 02/06/22[facility]05-[facility]22 NoteHNO ID: [id number] Author: Maximo Benavides RN Service: ? Author Type: Registered Nurse Type: Progress Notes Filed: 02/06/2022 7:50 AM Note Text: TRANSITIONAL CARE MANAGEMENT (TCM) COMMUNITY MONITORING PROGRAM - [place] Provider Action/FYI: SUMMARY: Pt discharged from [facility] on 02/01/2022. Admitted for: SBO Contact made with patient: No - next outreach attempt will be on next day Message left on cell phone/telephone answering device requesting patient return my call ([phone]). Outreach ended Maximo Benavides [facility]05-10-2022 Miscellaneous Notes* Telephone Encounter - Josep Drew MA - 01/24/2022 2:10 PM EDT Called patient to inform of Dr. Dhaliwal message. Patient states understanding and will call with any further questions or concerns. Josep Drew MA * Telephone Encounter - Kentrell Dhaliwal II, MD - 01/24/2022 2:00 PM EDT Yes Every 6 hours as needed * Telephone Encounter - Josep Drew MA - 01/24/2022 1:53 PM EDT Patient called stating she is having stomach cramps and would like to know if she can take the Bentle that Dr. Dhaliwal prescribed for her? Please advise Josep Drew MA documented in this encounterScci Hospital [facility]ima05-09-2022 Miscellaneous Notes* Telephone Encounter - Liliana Sainz - 01/23/2022 1:40 PM EDT Pharmacy faxed requesting the following refill Refill(s) Requested: Pending Prescriptions Disp Refills ALPRAZOLAM 1 MG TABLET 60 tablet 0 Sig: TAKE 1 TABLET BY MOUTH TWICE DAILY VIJI Class: C-IV GENNA: Yes ALLERGIES Allergen Reactions Latex Anaphylaxis Codeine Diarrhea Compazine [Prochlor* Myalgia Levaquin [Levofloxa* Diarrhea Omnicef [Cefdinir] Diarrhea Prednisone GI Upset Stgyvmd-Qai-Tbu Red* Diarrhea Sulfa (Sulfonamide * Other: See Comments Leg pain (home) [phone] (cell) Last Office Visit Date: 01/05/2022 Last [facility] Visit: Visit date not found Future Appointment: 04/19/2022 The patients preferred pharmacy has been captured for this encounter? yes Request is for script(s) to be escript to pharmacy. Liliana Sainz documented in this encounterScci Hospital [facility]ima05-09-2022 Miscellaneous Notes* Telephone Encounter - Josep Drew MA - 01/23/2022 1:23 PM EDT FYI: Dr. Neff office called stating they will treat patient for IBS and abdominal pain however, they will not treat for SBO or liver issues. Josep Drew MA documented in this encounterScci Hospital [facility]ima05-03-2022 History of Present illness Narrative* Jaswant Moseley MD - 01/17/2022 2:09 PM EDT H & P Date: January 17, 2022 Chief Complaint: Patient presents with: Follow Up: Recheck on ABD HPI: Adina Escobar is a 71 year old female [...] Diarrhea Omnicef [Cefdinir] Diarrhea Prednisone GI Upset Snrljyq-Yvl-Erl Red* Diarrhea Sulfa (Sulfonamide * Other: See [...] understanding. Jaswant Moseley MD documented in this encounterScci Hospital [facility]ima05-01-2022 NoteHNO ID: [id number] Author: Kentrell Dhaliwal II, MD Service: ? Author Type: Physician Type: Progress Notes Filed: 01/15/2022 9:51 PM Note Text: Transitional Care Management TCM Eligibility Documentation The following information was gathered during the initial Patient Outreach Encounter. No flowsheet data found. Summary Discharged from: [facility] Admit Date: 12/26/21 Admitted for: Small bowel obstruction, dehydration Kentrell Dhaliwal II, MD Provider Documentation Adina Escobar is a 71 year old female [...] leg: Normal. No raman (more content not included)...[facility]04-29-2022 Miscellaneous Notes* Telephone Encounter - Denita [...] showing any significant abnormality documented in this encounterScci Hospital [facility]ima04-29-2022 Miscellaneous Notes* Telephone Encounter - Denita Thomas [...] should think about going to see a tractor engine mechanic. * Telephone Encounter - Susanne Motta - 01/13/2022 9:43 AM EDT Adina Escobar is still having pain under her bellybutton, her bowels did finally move, and the Celebrex makes her sicker that before. Please advise Susanne Motta documented in this encounterScci Hospital Lima04-26-2022 Miscellaneous Notes* Telephone Encounter - Susanne Motta [...] one had a [facility] [place] in [place] on it. Susanne Motta * Telephone Encounter - Susanne Motta - 01/10/2022 9:34 AM EDT Order faxed to [facility]. Susanne Motta * Telephone Encounter - Kentrell Dhaliwal II, MD - 01/10/2022 8:54 AM EDT Printed * Telephone Encounter - Denita Thomas MA - 01/09/2022 10:16 AM EDT Ella from [facility] called regarding patients insurance. They are denying the PT and OT for patient with out the 485 signed and an actual order. 485 has been faxed but we just need an order for patients PT and OT. Please print order and fax to [phone]. Denita Thomas documented in this encounterScci Hospital [facility]ima04-22-2022 Miscellaneous Notes* Telephone Encounter - Susanne Motta - 01/06/2022 2:43 PM EDT Spoke with Adnia Franny Escobar , gave her time and date [...] do an abdominal ultrasound documented in this encounterScci Hospital [facility]ima04-21-2022 NoteHNO ID: [id number] Author: Kentrell Dhaliwal II, MD Service: ? Author Type: Physician Type: Progress Notes Filed: 01/15/2022 9:51 PM Note Text: Transitional Care Management TCM Eligibility Documentation The following information was gathered during the initial Patient Outreach Encounter. No flowsheet data found. Summary Discharged from: [facility] Admit Date: 10/30/21-11/13/21 11/24/21-11/25/21, 12/26/21-12/21/21 Admitted for: SBO, Bowel Abrasions, Bowel surgery Denita Thomas MA Provider Documentation Adina Escobar is a 71 year old female [...] (78.9kg) BMI 32.89 kg/(m2). Physical Exam See above.[facility]04-[facility]-2022 Miscellaneous Notes* Telephone Encounter - Josep Drew MA - 01/05/2022 2:39 PM EDT Prior auth for LUBIPROSTONE was sent to [facility] Josep Drew MA documented in this encounterScci Hospital [facility]ima04-12-2022 Miscellaneous Notes* Telephone Encounter - Mary Gongora MA - 12/27/2021 2:43 PM EDT Patient has been scheduled for upper GI series on 12/28/21 at 8:30am. She has been instructed NPO after 10pm and verbalizes understanding. Order has been faxed to registration with [facility]. Mary Gongora MA documented in this encounterScci Hospital [facility]ima04-12-2022 History of Present illness Narrative* Jaswant Moseley MD - 12/27/2021 2:42 PM EDT H & P Date: December 27, 2021 Chief Complaint: Patient presents with: Follow Up: ABD pain HPI: Adina Escobar is a 71 year old female [...] Diarrhea Omnicef [Cefdinir] Diarrhea Prednisone GI Upset Hzclgxa-Osi-Zmp Red* Diarrhea Sulfa (Sulfonamide * Other: See [...] SERIES Jaswant Moseley MD documented in this encounterScci Hospital [facility]ima04-07-2022 NoteHNO ID: [id number] Author: Maximo Benavides RN Service: ? Author Type: Registered Nurse Type: Progress Notes Filed: 12/22/2021 11:23 AM Note Text: TRANSITIONAL CARE MANAGEMENT (TCM) COMMUNITY MONITORING PROGRAM - [place] Provider Action/FYI: SUMMARY: Pt discharged from [facility] on 12/20/2021. Admitted for: SBO Reached [...] with patient: Yes Hi my name is Maximo Benavides RN and I am calling from the [facility] on behalf of your PCP, Kentrell [...] like to speak with a social work steamboat captain to help give you support for any [...] I will send your request to a air box tester who will contact and assist you with [...] (or call on the way if possible). Maximo Benavides, [facility]04-07-2022 History of Present illness Narrative* Maximo Benavides RN - 12/22/2021 10:56 AM EDT TRANSITIONAL CARE MANAGEMENT (TCM) [facility] Provider Action/FYI: SUMMARY: Pt discharged from [facility] on 12/20/2021. Admitted for: SBO Reached [...] with patient: Yes Hi my name is Maximo Benavides RN and I am calling from the [facility] on behalf of your PCP, Kentrell [...] like to speak with a social work steamboat captain to help give you support for any [...] I will send your request to a air box tester who will contact and assist you with [...] (or call on the way if possible). Maximo Benavides RN * Maximo Benavides RN - 12/21/2021 1:27 PM EDT TRANSITIONAL CARE MANAGEMENT (TCM) COMMUNITY MONITORING PROGRAM - JANESSA Provider Action/FYI: SUMMARY: Pt discharged from [facility] on 12/20/2021. Admitted for: SBO Contact made with patient: No - next outreach attempt will be on next business day Message left on cell phone/telephone answering device requesting patient return my call ([phone]). Outreach ended Maximo Benavides RN documented in this encounterScci Hospital [facility]ima04-06-2022 Miscellaneous Notes* Telephone Encounter - Denita Thomas [...] Diarrhea Omnicef [Cefdinir] Diarrhea Prednisone GI Upset Wwtvhcp-Bgp-Zwa Red* Diarrhea Sulfa (Sulfonamide * Other: See Comments Leg pain (home) [phone] (cell) Last Office Visit Date: 08/30/2021 Last [facility] Visit: Visit date not found Future Appointment: 12/30/2021 The patients preferred pharmacy has been captured for this encounter? yes Request is for script(s) to be escript to pharmacy. Denita Thomas MA documented in this encounterScci Hospital [facility]ima04-06-2022 NoteHNO ID: [id number] Author: Maximo Benavides RN Service: ? Author Type: Registered Nurse Type: Progress Notes Filed: 12/22/2021 11:23 AM Note Text: TRANSITIONAL CARE MANAGEMENT (TCM) COMMUNITY MONITORING PROGRAM - [place] Provider Action/FYI: SUMMARY: Pt discharged from [facility] on 12/20/2021. Admitted for: SBO Contact made with patient: No - next outreach attempt will be on next business day Message left on cell phone/telephone answering device requesting patient return my call ([phone]). Outreach ended VAISHALI [facility] NotePatient Outreach (AGA) ADINA ESCOBAR I ([id number]) 1950 F Date Time Provider Department 12/21/21 MAXIMO BENAVIDES [facility] During your visit today, we recorded the following information about you: Maximo Benavides RN 12/22/2021 11:23 AM Signed TRANSITIONAL CARE MANAGEMENT (TCM) COMMUNITY MONITORING PROGRAM - J[place]ES[place] Provider Action/FYI: SUMMARY: Pt discharged from [facility] on 12/20/2021. Admitted for: SBO Contact made with patient: No - next outreach attempt will be on next Message left on cell phone/telephone answering device requesting patient return my call ([phone]). Outreach ended DAVID Quick RN 12/22/2021 11:23 AM Signed TRANSITIONAL CARE MANAGEMENT (TCM) COMMUNITY MONITORING PROGRAM - JANESSA Provider Action/FYI: SUMMARY: Pt discharged from [facility] on 12/20/2021. Admitted for: SBO Reached [...] with patient: Yes Hi my name is Maximo Benavides RN and I am calling from the [facility] on behalf of your PCP, Kentrell Dhaliwal [...] like to speak with a social work steamboat captain to help give you support for any [...] I will send your request to a air box tester who will contact and assist you with [...] telephone or virtual v (more content not included)...[facility]04-05-[facility] History of Present illness Narrative* Jaswant Moseley MD - 12/20/2021 2:34 PM EDT H & P Date: December 20, 2021 Chief Complaint: follow up HPI: Adina Escobar is a 71 year old female [...] Diarrhea Omnicef [Cefdinir] Diarrhea Prednisone GI Upset Mqfacgp-Yan-Ijo Red* Diarrhea Sulfa (Sulfonamide * Other: See [...] understanding. Jaswant Moseley MD documented in this encounterScci Hospital Lima03-31-2022 NoteHNO ID: [id number] Author: Maximo Benavides RN Service: ? Author Type: Registered Nurse Type: Progress Notes Filed: 12/16/2021 3:21 PM Note Text: TRANSITION CARE MANAGEMENT (TCM) FOLLOW-UP NOTE Provider Action/FYI Patient identified by name and date of : YES Spoke to Monika Dent Summary: 12/15/2021: Message left for Marine-requesting return call regarding discharge plan. 12/16/2021: Spoke to Marine. Ptient to remain at facility x 7 more days. Stitching Machine Operator plan for next outreach: Will follow up 12/23/2021 Signature Maximo Benavides RN [facility] NotePatient Outreach (AGACM) ADINA ESCOBAR I ([id number]) 1950 F Date Time Provider Department 12/15/21 MAXIMO BENAVIDES During your visit today, we recorded the following information about you: Maximo Benavides RN 12/16/2021 3:21 PM Signed TRANSITION CARE MANAGEMENT (TCM) FOLLOW-UP NOTE Provider Action/FYI Patient identified by name and date of : YES Spoke to Monika Dent Summary: 12/15/2021: Message left for Marine-requesting return call regarding discharge plan. 12/16/2021: Spoke to Marine. Ptient to remain at facility x 7 more days. Stitching Machine Operator plan for next outreach: Will follow up 12/23/2021 Signature Maximo Benavides RN December 15, 2021 Allergies As of Date: 12/15/2021 Noted Allergy Reaction LATEX 06/22/2020 10 - Anaphylaxis CODEINE 06/22/2020 6 - Diarrhea COMPAZINE (PROCHLORPERAZINE) 06/22/2020 17 - Myalgia LEVAQUIN (LEVOFLOXACIN) 06/22/2020 6 - Diarrhea OMNICEF (CEFDINIR) 06/22/2020 6 - Diarrhea PREDNISONE 08/30/2021 8 - GI Upset OKBUWFX-XPZ-QGP REDUCTASE INHIBIT*06/22/2020 6 - Diarrhea SULFA (SULFONAMIDE [...] Hypothyroidism, acquired [E03.9] 08/30/2021 Encounter Status:Closed by MAXIMO BENAVIDES on 12/16/21[facility]03-[facility] History of Present illness Narrative* Maximo Benavides RN - 12/15/2021 1:25 PM EDT TRANSITION CARE MANAGEMENT (TCM) FOLLOW-UP NOTE Provider Action/FYI Patient identified by name and date of : YES Spoke to Monika Dent Summary: 12/15/2021: Message left for Marine-requesting return call regarding discharge plan. 12/16/2021: Spoke to Marine. Ptient to remain at facility x 7 more days. Stitching Machine Operator plan for next outreach: Will follow up 12/23/2021 Signature Maximo Benavides RN December 15, 2021 documented in this encounterScci Hospital [facility]ima03-31-2022 History of Present illness Narrative* Rosanna Lilly, DO - 12/15/2021 12:31 PM EDT HPI Adina Escobar is a 71 year old female [...] like to do TPN at home. The intermediate facility does state that her family has [...] Diarrhea Omnicef [Cefdinir] Diarrhea Prednisone GI Upset Cvzagcb-Smb-Tpy Red* Diarrhea Sulfa (Sulfonamide * Other: See [...] 12/15/21 TIME: 12:31 PM documented in this encounterScci Hospital [facility]ima03-21-2022 Miscellaneous Notes* Telephone Encounter - Pamela Gamino - 12/05/2021 5:16 PM EDT Noted, thank you. This was probably done by [facility] since it is [employer]. * Telephone Encounter - María Kruse MA - 12/05/2021 4:54 PM EDT Spoke with Marine from [employer], CT abdomen/pelvis w ivcon approved. Authorization # [id number] María Kruse MA * Telephone Encounter - María Kruse MA - 12/05/2021 3:07 PM EDT Patient is scheduled for a CT abd/pelvis with ivcon 12/26/21 at 10:30am. Patient has [employer] insurance and needs an auth done. María Kruse MA documented in this encounterScci Hospital [facility]ima03-21-2022 NoteHNO ID: [id number] Author: Maximo Benavides RN Service: ? Author Type: Registered Nurse Type: Progress Notes Filed: 12/05/2021 12:13 PM Note Text: TRANSITION CARE MANAGEMENT (TCM) FOLLOW-UP NOTE Provider Action/FYI Patient identified by name and date of : YES Spoke to Monika Dent Summary: Spoke to Marine at [facility]. Patient remains at facility. Anticipated discharge date 12/15/2021. Stitching Machine Operator plan for next outreach: Will follow up at discharge Signature Maximo Benavides RN December 05[facility]03-[facility]-2022 NotePatient Outreach (AGACM) ADINA ESCOBAR I ([id number]) 1950 F Date Time Provider Department 12/05/21 [facility] During your visit today, we recorded the following information about you: Maximo Benavides RN 12/05/2021 12:13 PM Signed TRANSITION CARE MANAGEMENT (TCM) FOLLOW-UP NOTE Provider Action/FYI Patient identified by name and date of : YES Spoke to Monika Dent Summary: Spoke to Marine at [facility]. Patient remains at facility. Anticipated discharge date 12/15/2021. Stitching Machine Operator plan for next outreach: Will follow up at discharge Signature Maximo Benavides RN December 05, 2021 Allergies As of Date: 12/05/2021 Noted Allergy Reaction DILAUDID (HYDROMORPHONE) 06/22/2020 12 - Shortness of Breath Comments: quit breathing LATEX 06/22/2020 10 - Anaphylaxis CODEINE 06/22/2020 6 - Diarrhea COMPAZINE (PROCHLORPERAZINE) 06/22/2020 17 - Myalgia LEVAQUIN (LEVOFLOXACIN) 06/22/2020 6 - Diarrhea OMNICEF (CEFDINIR) 06/22/2020 6 - Diarrhea PREDNISONE 08/30/2021 8 - GI Upset HAWPMNG-XSI-NOY REDUCTASE INHIBIT*06/22/2020 6 - Diarrhea SULFA (SULFONAMIDE [...] Hypothyroidism, acquired [E03.9] 08/30/2021 Encounter Status:Closed by MAXIMO BENAVIDES on 12/05/21[facility]03-[facility] NoteHNO ID: [id number] Author: Maximo Benavides RN Service: ? Author Type: Registered Nurse Type: Progress Notes Filed: 11/25/2021 2:07 PM Note Text: TRANSITION CARE MANAGEMENT (TCM) DISCHARGE TO POST ACUTE FACILITY POST ACUTE TRANSFER SUMMARY: -Pt discharged from [facility] on 11/24/2021. -Post Acute Facility Admitted to Monika Filipe -Admitted for:SBO Will follow at discharge. TORRES Quick, RN [phone]-Fairview [facility] Hospital03-11-2022 NotePatient Outreach (AGACM) ADINA ESCOBAR I ([id number]) 1950 F Date Time Provider Department 11/25/21 MAXIMO BENAVIDES During your visit today, we recorded the following information about you: Maximo Benavides RN 11/25/2021 2:07 PM Signed TRANSITION CARE MANAGEMENT (TCM) DISCHARGE TO POST ACUTE FACILITY POST ACUTE TRANSFER SUMMARY: -Pt discharged from [facility] on 11/24/2021. -Post Acute Facility Admitted to Monika Dent -Admitted for:SBO Will follow at discharge. TORRES Quick, RN [phone] Allergies As of Date: 11/25/2021 Noted Allergy Reaction DILAUDID (HYDROMORPHONE) 06/22/2020 12 - Shortness of Breath Comments: quit breathing LATEX 06/22/2020 10 - Anaphylaxis CODEINE 06/22/2020 6 - Diarrhea COMPAZINE (PROCHLORPERAZINE) 06/22/2020 17 - Myalgia LEVAQUIN (LEVOFLOXACIN) 06/22/2020 6 - Diarrhea OMNICEF (CEFDINIR) 06/22/2020 6 - Diarrhea PREDNISONE 08/30/2021 8 - GI Upset NETZWWC-ZYT-NBJ REDUCTASE INHIBIT*06/22/2020 6 - Diarrhea SULFA (SULFONAMIDE [...] Hypothyroidism, acquired [E03.9] 08/30/2021 Encounter Status:Closed by FAREED MAXIMO on 11/25/21[facility]12-[facility] NoteHNO ID: [id number] Author: Kentrell Dhaliwal II, MD Service: ? Author Type: Physician Type: Progress Notes Filed: 08/30/2021 10:33 PM Note Text: Kentrell Dhaliwal II, MD [address], [address] [place] [address] SUBJECTIVE Adina Escobar is a 71 year old female [...] [Cefdinir] Diarrhea - Prednisone GI Upset - Suxrahn-Jlm-Kwx Red* Diarrhea - Sulfa (Sulfonamide * Other: [...] needed. - zolpidem (AMBIEN) (more content not included)...[facility] 05-24-2021 NoteHNO ID: [id number] Author: Kentrell Dhaliwal II, MD Service: ? Author Type: Physician Type: Progress Notes Filed: 05/24/2021 8:15 PM Note Text: Kentrell Dhaliwal II, MD [address], [address] [place] [id number] SUBJECTIVE Adina Escobar is a 70 year old female [...] [Levofloxa* Diarrhea - Omnicef [Cefdinir] Diarrhea - Jgxbavu-Iyc-Nzu Red* Diarrhea - Sulfa (Sulfonamide * Other: [...] mg per tablet Take (more content not included)...[facility]10-06-2020 History of Past illness Narrative* Problem Noted Date Resolved Date Parkinson's disease 06/22/2020 04/17/2022 GERD without esophagitis 06/22/2020 022 documented as of this encounter (statuses as of 04/19/2022) [facility]10-06-2020 History of Past illness Narrative* Problem Noted Date Resolved Date Parkinson's disease 06/22/2020 04/17/2022 GERD without esophagitis 06/22/2020 022 documented as of this encounter (statuses as of 04/20/2022) [facility]10-06-2020 History of Past illness Narrative* Problem Noted Date Resolved Date Parkinson's disease 06/22/2020 04/17/2022 GERD without esophagitis 06/22/2020 022 documented as of this encounter (statuses as of 04/20/2022) [facility]-2020 History of Past illness Narrative* Problem Noted Date Resolved Date Parkinson's disease 06/22/2020 04/17/2022 GERD without esophagitis 06/22/2020 022 documented as of this encounter (statuses as of 04/21/2022) [facility]2020 History of Past illness Narrative* Problem Noted Date Resolved Date Parkinson's disease 06/22/2020 04/17/2022 GERD without esophagitis 06/22/2020 022 documented as of this encounter (statuses as of 04/21/2022) [facility]2020 History of Past illness Narrative* Problem Noted Date Resolved Date Parkinson's disease 06/22/2020 04/17/2022 GERD without esophagitis 06/22/2020 022 documented as of this encounter (statuses as of 04/24/2022) [facility]2020 History of Past illness Narrative* Problem Noted Date Resolved Date Parkinson's disease 06/22/2020 04/17/2022 GERD without esophagitis 06/22/2020 022 documented as of this encounter (statuses as of 05/04/2022) [facility]2020 History of Past illness Narrative* Problem Noted Date Resolved Date Parkinson's disease 06/22/2020 04/17/2022 GERD without esophagitis 06/22/2020 022 documented as of this encounter (statuses as of 05/04/2022) [facility]2020 History of Past illness Narrative* Problem Noted Date Resolved Date Parkinson's disease 06/22/2020 04/17/2022 GERD without esophagitis 06/22/2020 022 documented as of this encounter (statuses as of 05/04/2022) [facility]2020 History of Past illness Narrative* Problem Noted Date Resolved Date Parkinson's disease 06/22/2020 04/17/2022 GERD without esophagitis 06/22/2020 022 documented as of this encounter (statuses as of 05/04/2022) [facility]2020 History of Past illness Narrative* Problem Noted Date Resolved Date Parkinson's disease 06/22/2020 04/17/2022 GERD without esophagitis 06/22/2020 022 documented as of this encounter (statuses as of 05/05/2022) [facility] History of Past illness Narrative* Problem Noted Date Resolved Date Parkinson's disease 06/22/2020 04/17/2022 GERD without esophagitis 06/22/2020 022 documented as of this encounter (statuses as of 05/05/2022) [facility] History of Past illness Narrative* Problem Noted Date Resolved Date Parkinson's disease 06/22/2020 04/17/2022 GERD without esophagitis 06/22/2020 022 documented as of this encounter (statuses as of 05/15/2022) [facility] History of Past illness Narrative* Problem Noted Date Resolved Date Parkinson's disease 06/22/2020 04/17/2022 GERD without esophagitis 06/22/2020 022 documented as of this encounter (statuses as of 05/19/2022) [facility] History of Past illness Narrative* Problem Noted Date Resolved Date Parkinson's disease 06/22/2020 04/17/2022 GERD without esophagitis 06/22/2020 022 documented as of this encounter (statuses as of 05/19/2022) [facility] History of Past illness Narrative* Problem Noted Date Resolved Date Parkinson's disease 06/22/2020 04/17/2022 GERD without esophagitis 06/22/2020 022 documented as of this encounter (statuses as of 06/05/2022) [facility] History of Past illness Narrative* Problem Noted Date Resolved Date Parkinson's disease 06/22/2020 04/17/2022 GERD without esophagitis 06/22/2020 022 documented as of this encounter (statuses as of 06/06/2022) [facility] History of Past illness Narrative* Problem Noted Date Resolved Date Parkinson's disease 06/22/2020 04/17/2022 GERD without esophagitis 06/22/2020 022 documented as of this encounter (statuses as of 06/06/2022) [facility] History of Past illness Narrative* Problem Noted Date Resolved Date Parkinson's disease 06/22/2020 04/17/2022 GERD without esophagitis 06/22/2020 022 documented as of this encounter (statuses as of 06/20/2022) [facility] History of Past illness Narrative* Problem Noted Date Resolved Date Parkinson's disease 06/22/2020 04/17/2022 GERD without esophagitis 06/22/2020 022 documented as of this encounter (statuses as of 07/04/2022) [facility] History of Past illness Narrative* Problem Noted Date Resolved Date Parkinson's disease 06/22/2020 04/17/2022 GERD without esophagitis 06/22/2020 022 documented as of this encounter (statuses as of 07/07/2022) [facility] History of Past illness Narrative* Problem Noted Date Resolved Date Parkinson's disease 06/22/2020 04/17/2022 GERD without esophagitis 06/22/2020 022 documented as of this encounter (statuses as of 07/08/2022) [facility] History of Past illness Narrative* Problem Noted Date Resolved Date Parkinson's disease 06/22/2020 04/17/2022 GERD without esophagitis 06/22/2020 022 documented as of this encounter (statuses as of 07/13/2022) [facility] History of Past illness Narrative* Problem Noted Date Resolved Date Parkinson's disease 06/22/2020 04/17/2022 GERD without esophagitis 06/22/2020 022 documented as of this encounter (statuses as of 07/17/2022) [facility] History of Past illness Narrative* Problem Noted Date Resolved Date Parkinson's disease 06/22/2020 04/17/2022 GERD without esophagitis 06/22/2020 022 documented as of this encounter (statuses as of 07/18/2022) [facility] History of Past illness Narrative* Problem Noted Date Resolved Date Parkinson's disease 06/22/2020 04/17/2022 GERD without esophagitis 06/22/2020 022 documented as of this encounter (statuses as of 07/18/2022) [facility] History of Past illness Narrative* Problem Noted Date Resolved Date Parkinson's disease 06/22/2020 04/17/2022 GERD without esophagitis 06/22/2020 022 documented as of this encounter (statuses as of 07/19/2022) [facility] History of Past illness Narrative* Problem Noted Date Resolved Date Parkinson's disease 06/22/2020 04/17/2022 GERD without esophagitis 06/22/2020 022 documented as of this encounter (statuses as of 07/21/2022) [facility] History of Past illness Narrative* Problem Noted Date Resolved Date Parkinson's disease 06/22/2020 04/17/2022 GERD without esophagitis 06/22/2020 022 documented as of this encounter (statuses as of 07/24/2022) [facility] History of Past illness Narrative* Problem Noted Date Resolved Date Parkinson's disease 06/22/2020 04/17/2022 GERD without esophagitis 06/22/2020 022 documented as of this encounter (statuses as of 08/16/2022) [facility] History of Past illness Narrative* Problem Noted Date Resolved Date Parkinson's disease 06/22/2020 04/17/2022 GERD without esophagitis 06/22/2020 022 documented as of this encounter (statuses as of 08/23/2022) [facility] History of Past illness Narrative* Problem Noted Date Resolved Date Parkinson's disease 06/22/2020 04/17/2022 GERD without esophagitis 06/22/2020 022 documented as of this encounter (statuses as of 08/24/2022) [facility] History of Past illness Narrative* Problem Noted Date Resolved Date Parkinson's disease 06/22/2020 04/17/2022 GERD without esophagitis 06/22/2020 022 documented as of this encounter (statuses as of 09/19/2022) [facility] History of Past illness Narrative* Problem Noted Date Resolved Date Parkinson's disease 06/22/2020 04/17/2022 GERD without esophagitis 06/22/2020 022 documented as of this encounter (statuses as of 10/15/2022) [facility] History of Past illness Narrative* Problem Noted Date Resolved Date Parkinson's disease 06/22/2020 04/17/2022 GERD without esophagitis 06/22/2020 022 documented as of this encounter (statuses as of 10/31/2022) [facility] History of Past illness Narrative* Problem Noted Date Resolved Date Parkinson's disease 06/22/2020 04/17/2022 GERD without esophagitis 06/22/2020 022 documented as of this encounter (statuses as of 11/14/2022) [facility] History of Past illness Narrative* Problem Noted Date Resolved Date Parkinson's disease 06/22/2020 04/17/2022 GERD without esophagitis 06/22/2020 022 documented as of this encounter (statuses as of 11/24/2022) [facility] History of Past illness Narrative* Problem Noted Date Resolved Date Parkinson's disease 06/22/2020 04/17/2022 GERD without esophagitis 06/22/2020 022 documented as of this encounter (statuses as of 12/06/2022) [facility] History of Past illness Narrative* Problem Noted Date Resolved Date Parkinson's disease 06/22/2020 04/17/2022 GERD without esophagitis 06/22/2020 022 documented as of this encounter (statuses as of 12/11/2022) [facility] History of Past illness Narrative* Problem Noted Date Resolved Date Parkinson's disease 06/22/2020 04/17/2022 GERD without esophagitis 06/22/2020 022 documented as of this encounter (statuses as of 12/13/2022) [facility] History of Past illness Narrative* Problem Noted Date Resolved Date Parkinson's disease 06/22/2020 04/17/2022 GERD without esophagitis 06/22/2020 022 documented as of this encounter (statuses as of 01/09/2023) [facility] History of Past illness Narrative* Problem Noted Date Resolved Date Parkinson's disease 06/22/2020 04/17/2022 GERD without esophagitis 06/22/2020 022 documented as of this encounter (statuses as of 01/18/2023) [facility] History of Past illness Narrative* Problem Noted Date Resolved Date Parkinson's disease 06/22/2020 04/17/2022 GERD without esophagitis 06/22/2020 022 documented as of this encounter (statuses as of 01/30/2023) [facility] History of Past illness Narrative* Problem Noted Date Diagnosed Date Resolved Date Parkinson's disease 06/22/2020 04/17/20 22 GERD without esophagitis 06/22/202009/2021 documented as of this encounter (statuses as of 06/16/2023) [facility] History of Past illness Narrative* Problem Noted Date Diagnosed Date Resolved Date Parkinson's disease 06/22/2020 04/17/20 22 GERD without esophagitis 06/22/202009/2021 documented as of this encounter (statuses as of 06/16/2023) [facility] I[facility] March 18, 2023 4:19pm Note Date/Time March 18, 2023 4:18p [facility] Medical Records Department [address] [place] [id number] Instructions for Home/Discharge Instructions 03/18/23 1618 MR#: [id number] Acct: [id number] Name: ADINA ESCOBAR Rep #:[id number] : 1950 72 [...] Umanzor MD; Dr. Aly Fragoso MD;Dr. Kentrell Dhaliawl MD ~ Signed [facility] Work Phone: Discharge summary Author Aly Fragoso [facility] December 11, 2023 2:04pm Note Date/Time December 11, 2023 2:0 1pm [facility] Medical Records Department [address] [place] [id number] Instructions for Home/Discharge Instructions 12/11/23 1358 MR#: [id number] Acct: [id number] Name: ADINA ESCOBAR Rep #:[id number] : 1950 73 [...] MD; Dr. Kentrell Dhaliwal MD ~ Signed [facility] Work Phone: Evaluation note* Diagnosis Peritoneal abscess (HCC)- Primary Peritoneal abscess Adverse effect of treatment, [facility] encounter [facility] History of small bowel obstruction- Primary Personal history of other diseases of digestive system On total parenteral nutrition (TPN) Other specified conditions influencing health status documented in this encounter [facility] note* Diagnosis History of small bowel obstruction- Primary Personal history of other diseases of digestive system On total parenteral nutrition (TPN) Other specified conditions influencing health status Post-operative state Other postprocedural status documented in this encounter [facility] note* Diagnosis History of small bowel obstruction- Primary Personal history of other diseases of digestive system Abdominal pain, unspecified abdominal location Post-operative state Other postprocedural status [facility]* Diagnosis Generalized abdominal pain- Primary Abdominal pain, generalized Elevated liver function tests Other abnormal blood chemistry documented in this encounter [facility] note* Diagnosis Generalized weakness- Primary Other malaise and fatigue SBO (small bowel obstruction) (HCC) Unspecified intestinal obstruction Fatigue, unspecified type Type 2 diabetes mellitus without complication, without long-term current use of insulin (HCC) Parkinson's disease (HCC) Paralysis agitans [facility]* Diagnosis History of small bowel obstruction- Primary Personal history of other diseases of digestive system Abdominal pain, unspecified abdominal location [facility]* Diagnosis Anxiety and depression Dysthymic disorder documented in this encounter [facility] note* Diagnosis Chronic insomnia Insomnia, unspecified documented [facility] this [facility]* Diagnosis Anxiety and depression Dysthymic disorder documented in this encounter [facility] note* Diagnosis Anxiety and depression- Primary Dysthymic disorder Chronic insomnia Insomnia, unspecified Gastroesophageal reflux disease, unspecified whether esophagitis present Type 2 diabetes mellitus without complication, without long-term current use of insulin (HCC) SBO (small bowel obstruction) (HCC) Unspecified intestinal obstruction documented in this encounter [facility] note* Diagnosis Anxiety and depression Dysthymic disorder documented [facility]* Diagnosis Chronic insomnia Insomnia, unspecified documented [facility] this [facility]* Diagnosis Anxiety and depression- Primary Dysthymic disorder Irritable bowel syndrome with both constipation and diarrhea Gastroesophageal reflux disease, unspecified whether esophagitis present Type 2 diabetes mellitus without complication, without long-term current use of insulin (HCC) Elevated liver function tests Other abnormal blood chemistry Hypothyroidism, acquired Unspecified hypothyroidism Myalgias Chronic insomnia Insomnia, unspecified documented in this encounter [facility] note* Diagnosis Myalgias documented in this encounter [facility] note* Diagnosis Chronic insomnia Insomnia, unspecified documented in this encounter [facility] note* Diagnosis Anxiety and depression Dysthymic disorder documented in this encounter [facility] note* Diagnosis Syncope, unspecified syncope type- Primary Anxiety and depression Dysthymic disorder Irritable bowel syndrome with both constipation and diarrhea Gastroesophageal reflux disease, unspecified whether esophagitis present Hypothyroidism, acquired Unspecified hypothyroidism SBO (small bowel obstruction) (HCC) Unspecified intestinal obstruction Recurrent UTI (urinary tract infection) Urinary tract infection, site not specified documented in this encounter [facility] note* Diagnosis Chronic insomnia Insomnia, unspecified documented in this encounter [facility] note* Diagnosis Anxiety and depression Dysthymic disorder documented in this encounter [facility] note* Diagnosis LLQ abdominal pain- Primary Abdominal pain, left lower quadrant Nausea and vomiting, unspecified vomiting type Partial small bowel obstruction (HCC) Unspecified intestinal obstruction documented in this encounter [facility] note* Diagnosis Anxiety and depression Dysthymic disorder documented in this encounter [facility] note* Diagnosis Hypothyroidism, acquired- Primary Unspecified hypothyroidism Type 2 diabetes mellitus without complication, without long-term current use of insulin (HCC) Gastroesophageal reflux disease, unspecified whether esophagitis present Anxiety and depression Dysthymic disorder Elevated liver function tests Other abnormal blood chemistry Irritable bowel syndrome with both constipation and diarrhea documented in this encounter [facility] noteNo assessment information [facility] Work Phone: evaluation note* Diagnosis Chronic insomnia Insomnia, unspecified documented in this encounter [facility] note* Diagnosis Chronic insomnia Insomnia, unspecified documented in this encounter [facility] note* Diagnosis Onset Date Resolution Status Partial small bowel obstruction acute [facility] Work Phone: evaluation note* Diagnosis Onset Date Resolution Status Constipation acute Partial small bowel obstruction acute [facility] Work Phone: Evaluation note* Diagnosis Onset Date Resolution Status Constipation resolved Partial small bowel obstruction resolved [facility] Work Phone: Evaluation note* Diagnosis Anxiety and depression Dysthymic disorder documented in this encounter [facility] note* Diagnosis Anxiety and depression Dysthymic disorder documented in this encounter [facility] note* Diagnosis Small bowel obstruction (HCC)- Primary Unspecified intestinal obstruction Recurrent UTI (urinary tract infection) Urinary tract infection, site not specified Dermatitis Contact dermatitis and other eczema, due to unspecified cause Gastroesophageal reflux disease, unspecified whether esophagitis present Hypothyroidism, acquired Unspecified hypothyroidism Anxiety and depression Dysthymic disorder Generalized weakness Other malaise and fatigue documented in this encounter [facility] note* Diagnosis Chronic insomnia Insomnia, unspecified documented in this encounter [facility] note* Diagnosis Small bowel obstruction (HCC) Unspecified intestinal obstruction documented in this encounter [facility] note* Diagnosis Small bowel obstruction (HCC) Unspecified intestinal obstruction documented in this encounter [facility] note* Diagnosis Generalized abdominal pain- Primary Abdominal pain, generalized Small bowel obstruction (HCC) Unspecified intestinal obstruction documented in this encounter [facility] note* Diagnosis Anxiety and depression Dysthymic disorder documented in this encounter [facility] note* Diagnosis Generalized abdominal pain Abdominal pain, generalized documented in this encounter [facility] note* Diagnosis Anxiety and depression Dysthymic disorder Generalized abdominal pain Abdominal pain, generalized documented in this encounter [facility] note* Diagnosis Generalized weakness Other malaise and fatigue SOB (shortness of breath) Shortness of breath CHAVARRIA (dyspnea on exertion) Other dyspnea and respiratory abnormality Fatigue, unspecified type documented in this encounter [facility] note* Diagnosis Generalized weakness- Primary Other malaise and fatigue SOB (shortness of breath) Shortness of breath CHAVARRIA (dyspnea on exertion) Other dyspnea and respiratory abnormality Fatigue, unspecified type Chronic insomnia Insomnia, unspecified Anxiety and depression Dysthymic disorder Generalized abdominal pain Abdominal pain, generalized documented in this encounter [facility] note* Diagnosis Anxiety and depression Dysthymic disorder documented in this encounter [facility] note* Diagnosis Gastroesophageal reflux disease, unspecified whether esophagitis present- Primary Nausea Nausea alone Diarrhea, unspecified type documented in this encounter [facility] note* Diagnosis Onset Date Resolution Status SBO (small bowel obstruction) acute [facility] Work Phone: Evaluation note* Diagnosis Onset Date Resolution Status Abdominal pain acute SBO (small bowel obstruction) acute [facility] Work Phone: Evaluation note* Diagnosis Gastroesophageal reflux disease, unspecified whether esophagitis present- Primary Nausea Nausea alone Anxiety and depression Dysthymic disorder Diarrhea, unspecified type Generalized weakness Other malaise and fatigue Hypothyroidism, acquired Unspecified hypothyroidism Iron deficiency anemia, unspecified iron deficiency anemia type documented in this encounter [facility] note* Diagnosis Chronic insomnia Insomnia, unspecified documented in this encounter [facility] note* Diagnosis Anxiety and depression Dysthymic disorder documented in this encounter [facility] note* Diagnosis Anxiety and depression Dysthymic disorder documented in this encounter [facility] note* Diagnosis Nausea Nausea alone [facility]* Diagnosis Chronic insomnia Insomnia, unspecified Anxiety and depression Dysthymic disorder documented in this encounter [facility] note* Diagnosis Chronic insomnia Insomnia, unspecified documented in this encounter [facility] note* Diagnosis Nausea Nausea alone documented in this encounter [facility] note* Diagnosis Anxiety and depression Dysthymic disorder Chronic insomnia Insomnia, unspecified documented in this encounter [facility] note* Diagnosis LLQ abdominal pain Abdominal pain, left lower quadrant Partial small bowel obstruction (HCC) Unspecified intestinal obstruction documented [facility] this [facility]* Diagnosis Gastroesophageal reflux disease, unspecified whether esophagitis present- Primary Anxiety and depression Dysthymic disorder Chronic insomnia Insomnia, unspecified Hypothyroidism, acquired Unspecified hypothyroidism Iron deficiency anemia, unspecified iron deficiency anemia type Nausea Nausea alone Vitamin D deficiency Unspecified vitamin D deficiency documented in this encounter [facility] note* Diagnosis Anxiety and depression Dysthymic disorder documented in this encounter [facility] note* Diagnosis Chronic insomnia Insomnia, unspecified documented in this encounter [facility] note* Diagnosis Acute otitis media, left- Primary Unspecified otitis media Acute otitis externa of left ear, unspecified type documented in this encounter [facility] note* Diagnosis Anxiety and depression Dysthymic disorder documented in this encounter [facility] note* Diagnosis Anxiety and depression Dysthymic disorder [facility] Diagnosis Anxiety and depression Dysthymic disorder [facility]* Diagnosis Chronic deep vein thrombosis (DVT) of proximal vein of lower extremity, unspecified laterality (HCC) [facility] Diagnosis Gastroesophageal reflux disease, unspecified whether esophagitis present- Primary Generalized abdominal pain Abdominal pain, generalized Anxiety and depression Dysthymic disorder Hypothyroidism, acquired Unspecified hypothyroidism Elevated blood pressure reading without diagnosis of hypertension [facility] Generalized abdominal pain- Primary Abdominal pain, generalized Gastroesophageal reflux disease, unspecified whether esophagitis present SOB (shortness of breath) Shortness of breath Anxiety and depression Dysthymic disorder Elevated blood pressure reading without diagnosis of hypertension [facility] Diagnosis Chronic insomnia Insomnia, unspecified [facility] Diagnosis Chronic insomnia Insomnia, unspecified [facility] Diagnosis Anxiety and depression Dysthymic disorder [facility] Diagnosis Nausea Nausea alone [facility] Diagnosis Anxiety and depression Dysthymic disorder [facility] Diagnosis Anxiety and depression Dysthymic disorder Chronic insomnia Insomnia, unspecified [facility] Diagnosis Anxiety and depression Dysthymic disorder [facility] Diagnosis Gastroesophageal reflux disease, unspecified whether [...] severe protein-calorie malnutrition [facility] Diagnosis Anxiety and depression Dysthymic disorder [facility] Diagnosis Vertigo- Primary Dizziness and giddiness Anxiety and depression Dysthymic disorder CHAAVRRIA (dyspnea on exertion) Other dyspnea and respiratory abnormality Palpitations Gastroesophageal reflux disease, unspecified whether esophagitis present Hypothyroidism, acquired Unspecified hypothyroidism Iron deficiency anemia, unspecified iron deficiency anemia type 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 Irritable bowel syndrome with both constipation and diarrhea [facility] Diagnosis Anxiety and depression Dysthymic disorder Chronic insomnia Insomnia, unspecified [facility] Author Jessica Thomas [facility] March 16, 2023 6:39am Note Date/Time March 16, 2023 6:31 am [facility] Medical Records Department [address] [place] [address] H&P Exam - Hospitalist 03/16/2331 MR#: [id number] Acct: [id number] Name: ADINA ESCOBAR Rep #:[id number] : 1950 72 From: Jessica Thomas MD PCP: Dr. Kentrell Dhaliwal MD Status:ADM IN Location: [facility] [id number] HPI - General General Date of Admission: 03/16/23 Date of Service: 03/16/23 Chief Complaint: Abdominal pain, N/V. HPI Narrative The patient is a 72 y/o F w/ PMHx: Hypothyroidism, Anxiety and Depression, Hx VTE, HLD, GERD, Hx SBO s/p 7 prior abdominal surgeries including bowel resectionwho presents to the [facility] ED on 03/16/23 with history of [...] placed and small bowel follow-through be initiated. [facility] Medical History (Updated 03/16/23 @ 06:24 [...] [From Levaquin] AdvReac Vomiting Verified 12/11/22 22:27 Jyaorea-YQH-GeW Reductase AdvReac NEEDS Verified 12/11/22 22:27 Inhibitor [...] % (Auto) 48.5, Lymph % (Auto) 40.6, Terry % (Auto) 8.3, Eos % (Auto) 1.1, [...] Clarity Clear, Urine pH 6.0, Ur Specific Egan 1.010, Urine Protein Negative, Urine Glucose (UA) [...] compared to prior study postcholecystectomy. Electronically Signed: Gertrude Brasher MD at 5:35 EDT , Assessment & Plan Assessment/Plan (1) Partial small bowel obstruction: PLAN: Plan The patient is a 72 y/o F w/ PMHx: Hypothyroidism, Anxiety and Depression, Hx VTE, HLD, GERD, Hx SBO s/p 7 prior abdominal surgeries including bowel resectionwho presents to the [facility] ED on 03/16/23 with history of [...] 75 minutes. Charges/Coding Visit Charges Inpatient E&M: 12630 Init Hosp L3 03/16/23 0631 <Electronically signed [...] MD; Dr. Kentrell Dhaliwal MD ~* Signed [facility] Work Phone: Hospital Discharge instructions Additional Instructions Increase Metamucil to twice a day for the next several days.[facility] Work Phone: Reason for referral (narrative)* Diagnostic Procedure Only (Routine) - Pending Review Specialty Diagnoses / Procedures Referred By Contac t Referred To Contact XR IMAGING Diagnoses History of small bowel obstruction Abdominal pain, unspecified abdominal location Procedures XR SMALL BOWEL SERIES RADIOLOGIC EXAM SMALL INT SINGLE CONTRAST STUDY Jaswant Moseley MD [address] [place] [address] [address] Xr Imaging Referral ID Status Reason Start Date Expiration Date Visits Requested Visits Authorized [id number] Pending Review Auto-Generat ed Referral 12/27/2021 01/26/2023 1 1 [facility] for referral (narrative)* Diagnostic Procedure Only (Routine) - Pending Review Specialty Diagnoses / Procedures Referred By Contac t Referred To Contact US IMAGING Diagnoses Generalized abdominal pain Elevated liver function tests Procedures US ABDOMEN COMPLETE US ABDOMINAL REAL TIME W/IMAGE DOCUMENTATION Kentrell Dhaliwal II, MD [address] [place] [address] [facility] Imaging Referral ID Status Reason Start Date Expiration Date Visits Requested Visits Authorized [id number] Pending Review Auto-Generat ed Referral 01/06/2022 02/05/2023 1 1 [facility] for referral (narrative)* Diagnostic Procedure Only (Routine) - Closed Specialty Diagnoses / Procedures Referred By Contac t Referred To Contact XR IMAGING Diagnoses LLQ abdominal pain Partial small bowel obstruction (HCC) Procedures XR ABDOMEN 2V ROUTINE SUPINE W UPRIGHT/DECUB/CTL RADIOLOGIC EXAM [place]BDOMEN [address] [place] [address] [place] [address] Xr Imaging Referral ID Status Reason Start Date Expiration Date V isits Requested Visits Authorized [id number] Closed Auto-Generate d Referral 07/21/2022 08/20/2023 1 1 [facility] Diagnostic Procedure Only (Routine) - Closed Specialty Diagnoses / Procedures Referred By Contac t Referred To Contact XR IMAGING Diagnoses LLQ abdominal pain Partial small bowel obstruction (HCC) Procedures XR ABDOMEN 2V ROUTINE SUPINE W UPRIGHT/DECUB/CTL RADIOLOGIC EXAM [place]BDOMEN [address] [place] [address] [place] [address] [place] [address] Referral ID Status Reason Start Date Expiration Date V isits Requested Visits Authorized [id number] Closed Auto-Generate d Referral 07/21/2022 08/20/2023 1 1 [facility] Reason for Referral Specialty Diagnoses / Procedures Referred By Contac t Referred To Contact CT IMAGING Diagnoses Adverse effect of treatment, initial encounter Peritoneal abscess (HCC) Procedures CT ABD/PEL W IVCON CT ABD & PELVIS W/CONTRAST Jaswant Moseley MD [address] [place] [address] Ct Imaging Referral ID Status Reason Start Date Expiration Date Visits Requested Visits Authorized [id number] Pending Review Auto-Generat ed Referral 12/05/2021 01/04/2023 [...] COMPLEX 45 MINS Kentrell Dhaliwal II, MD [address] [place] [address] [place] [address] [facility] [place] [address] [place] [address] Referral ID Status Reason Start Date Expiration Date Visits Requested Visits Authorized [id number] Pending Review Auto-Generat ed Referral 01/10/2022 01/09/2023 1 1 Specialty Diagnoses / Procedures Referred By Contac t Referred To Contact Diagnoses Myalgias Kentrell Dhaliwal II, MD [address] [place] [address] [place] [address] Referral ID Status Reason Start Date Expiration Date V isits Requested Visits Authorized [id number] Pending Review 1 1 Referral ID Status Reason Start Date Expiration Date V isits Requested Visits Authorized [id number] Pending Review 1 1 Summary Purpose Family [...] No December 11, 2022 10:18pm Power of Processes Chemical Design Engineer No December 11 10:18pm Advance Directive Response Recorded Date/ Time Name of Medical Power of Processes Chemical Design Engineer FARHAD ABARCA March 16, 2023 3:35am Living Will Yes March 16, 2023 3:35am Power of Processes Chemical Design Engineer Yes March 16 3:35am Advance Directive Response Recorded Date/ Time Name of Medical Power of Processes Chemical Design Engineer FARHAD TEVIN March 16, 2023 7:37am Living Will Yes March 16, 2023 7:37am Power of Processes Chemical Design Engineer Yes March 16 7:37am Advance Directive Response Recorded Date/ Time Name of Medical Power of Processes Chemical Design Engineer FARHAD ABARCA March 16, 2023 7:37am Living Will No March 31, 2023 11:16pm Power of Processes Chemical Design Engineer No March 31 11:16pm Advance Directive Response Recorded Date/ Time Living Will No December 06, 2023 5:08pm Power of Processes Chemical Design Engineer No December 05 5:08pm Advance Directive Response Recorded Date/ Time Name of Medical Power of Processes Chemical Design Engineer brook (daught er) December 07, 2023 1:09am Living Will Yes December 07, 2023 1:09am Power of Processes Chemical Design Engineer Yes December 06 1:09am Advance Directive Response Recorded Date/ Time Name of Medical Power of Processes Chemical Design Engineer brook (daught er) December 07, 2023 1:09am Name of Medical Power of Processes Chemical Design Engineer ROSARIO BRAVO December 13, 2023 10:24am Living Will Yes December 13, 2023 10:24am Power of Processes Chemical Design Engineer Yes December 12 10:24am Health Concerns Infection [...] 10/30/2021 1:31 PM EST COVID-19 Rule-Out 11/16/2021 11/16/2021 11/16/2021 3:00 AM EST COVID-19 Rule-Out 11/23/2021 11/23/2021 [...] or prosecute any alcohol or drug abuse patient.[facility] the event this information is protected by the Federal Confidentiality of Alcohol and Drug Abuse Patient Records regulations: The Federal rules restrict any use of the information to criminally investigate or prosecute any alcohol or drug abuse patient.[facility] the event this information is protected by the Federal Confidentiality of Alcohol and Drug Abuse Patient Records regulations: The Federal rules restrict any use of the information to criminally investigate or prosecute any alcohol or drug abuse patient.[facility] the event this information is protected by the Federal Confidentiality of Alcohol and Drug Abuse Patient Records regulations: The Federal rules restrict any use of the information to criminally investigate or prosecute any alcohol or drug abuse patient.[facility] the event this information is protected by the Federal Confidentiality of Alcohol and Drug Abuse Patient Records regulations: The Federal rules restrict any use of the information to criminally investigate or prosecute any alcohol or drug abuse patient.[facility] the event this information is protected by the Federal Confidentiality of Alcohol and Drug Abuse Patient Records regulations: The Federal rules restrict any use of the information to criminally investigate or prosecute any alcohol or drug abuse patient.[facility] the event this information is protected by the Federal Confidentiality of Alcohol and Drug Abuse Patient Records regulations: The Federal rules restrict any use of the information to criminally investigate or prosecute any alcohol or drug abuse patient.[facility] the event this information is protected by the Federal Confidentiality of Alcohol and Drug Abuse Patient Records regulations: The Federal rules restrict any use of the information to criminally investigate or prosecute any alcohol or drug abuse patient.[facility] the event this information is protected by the Federal Confidentiality of Alcohol and Drug Abuse Patient Records regulations: The Federal rules restrict any use of the information to criminally investigate or prosecute any alcohol or drug abuse patient.[facility] the event this information is protected by the Federal Confidentiality of Alcohol and Drug Abuse Patient Records regulations: The Federal rules restrict any use of the information to criminally investigate or prosecute any alcohol or drug abuse patient.[facility] the event this information is protected by the Federal Confidentiality of Alcohol and Drug Abuse Patient Records regulations: The Federal rules restrict any use of the information to criminally investigate or prosecute any alcohol or drug abuse patient.[facility] the event this information is protected by the Federal Confidentiality of Alcohol and Drug Abuse Patient Records regulations: The Federal rules restrict any use of the information to criminally investigate or prosecute any alcohol or drug abuse patient.[facility] the event this information is protected by the Federal Confidentiality of Alcohol and Drug Abuse Patient Records regulations: The Federal rules restrict any use of the information to criminally investigate or prosecute any alcohol or drug abuse patient.[facility] the event this information is protected by the Federal Confidentiality of Alcohol and Drug Abuse Patient Records regulations: The Federal rules restrict any use of the information to criminally investigate or prosecute any alcohol or drug abuse patient.[facility] the event this information is protected by the Federal Confidentiality of Alcohol and Drug Abuse Patient Records regulations: The Federal rules restrict any use of the information to criminally investigate or prosecute any alcohol or drug abuse patient.[facility] the event this information is protected by the Federal Confidentiality of Alcohol and Drug Abuse Patient Records regulations: The Federal rules restrict any use of the information to criminally investigate or prosecute any alcohol or drug abuse patient.[facility] the event this information is protected by the Federal Confidentiality of Alcohol and Drug Abuse Patient Records regulations: The Federal rules restrict any use of the information to criminally investigate or prosecute any alcohol or drug abuse patient.[facility] the event this information is protected by the Federal Confidentiality of Alcohol and Drug Abuse Patient Records regulations: The Federal rules restrict any use of the information to criminally investigate or prosecute any alcohol or drug abuse patient.[facility] the event this information is protected by the Federal Confidentiality of Alcohol and Drug Abuse Patient Records regulations: The Federal rules restrict any use of the information to criminally investigate or prosecute any alcohol or drug abuse patient.[facility] the event this information is protected by the Federal Confidentiality of Alcohol and Drug Abuse Patient Records regulations: The Federal rules restrict any use of the information to criminally investigate or prosecute any alcohol or drug abuse patient.[facility] the event this information is protected by the Federal Confidentiality of Alcohol and Drug Abuse Patient Records regulations: The Federal rules restrict any use of the information to criminally investigate or prosecute any alcohol or drug abuse patient.[facility] the event this information is protected by the Federal Confidentiality of Alcohol and Drug Abuse Patient Records regulations: The Federal rules restrict any use of the information to criminally investigate or prosecute any alcohol or drug abuse patient.[facility] the event this information is protected by the Federal Confidentiality of Alcohol and Drug Abuse Patient Records regulations: The Federal rules restrict any use of the information to criminally investigate or prosecute any alcohol or drug abuse patient.[facility] the event this information is protected by the Federal Confidentiality of Alcohol and Drug Abuse Patient Records regulations: The Federal rules restrict any use of the information to criminally investigate or prosecute any alcohol or drug abuse patient.[facility] the event this information is protected by the Federal Confidentiality of Alcohol and Drug Abuse Patient Records regulations: The Federal rules restrict any use of the information to criminally investigate or prosecute any alcohol or drug abuse patient.[facility] the event this information is protected by the Federal Confidentiality of Alcohol and Drug Abuse Patient Records regulations: The Federal rules restrict any use of the information to criminally investigate or prosecute any alcohol or drug abuse patient.[facility] the event this information is protected by the Federal Confidentiality of Alcohol and Drug Abuse Patient Records regulations: The Federal rules restrict any use of the information to criminally investigate or prosecute any alcohol or drug abuse patient.[facility] the event this information is protected by the Federal Confidentiality of Alcohol and Drug Abuse Patient Records regulations: The Federal rules restrict any use of the information to criminally investigate or prosecute any alcohol or drug abuse patient.[facility] the event this information is protected by the Federal Confidentiality of Alcohol and Drug Abuse Patient Records regulations: The Federal rules restrict any use of the information to criminally investigate or prosecute any alcohol or drug abuse patient.[facility] the event this information is protected by the Federal Confidentiality of Alcohol and Drug Abuse Patient Records regulations: The Federal rules restrict any use of the information to criminally investigate or prosecute any alcohol or drug abuse patient.[facility] the event this information is protected by the Federal Confidentiality of Alcohol and Drug Abuse Patient Records regulations: The Federal rules restrict any use of the information to criminally investigate or prosecute any alcohol or drug abuse patient.[facility] the event this information is protected by the Federal Confidentiality of Alcohol and Drug Abuse Patient Records regulations: The Federal rules restrict any use of the information to criminally investigate or prosecute any alcohol or drug abuse patient.[facility] the event this information is protected by the Federal Confidentiality of Alcohol and Drug Abuse Patient Records regulations: The Federal rules restrict any use of the information to criminally investigate or prosecute any alcohol or drug abuse patient.[facility] the event this information is protected by the Federal Confidentiality of Alcohol and Drug Abuse Patient Records regulations: The Federal rules restrict any use of the information to criminally investigate or prosecute any alcohol or drug abuse patient.[facility] the event this information is protected by the Federal Confidentiality of Alcohol and Drug Abuse Patient Records regulations: The Federal rules restrict any use of the information to criminally investigate or prosecute any alcohol or drug abuse patient.[facility] the event this information is protected by the Federal Confidentiality of Alcohol and Drug Abuse Patient Records regulations: The Federal rules restrict any use of the information to criminally investigate or prosecute any alcohol or drug abuse patient.[facility] the event this information is protected by the Federal Confidentiality of Alcohol and Drug Abuse Patient Records regulations: The Federal rules restrict any use of the information to criminally investigate or prosecute any alcohol or drug abuse patient.[facility] the event this information is protected by the Federal Confidentiality of Alcohol and Drug Abuse Patient Records regulations: The Federal rules restrict any use of the information to criminally investigate or prosecute any alcohol or drug abuse patient.[facility] the event this information is protected by the Federal Confidentiality of Alcohol and Drug Abuse Patient Records regulations: The Federal rules restrict any use of the information to criminally investigate or prosecute any alcohol or drug abuse patient.[facility] the event this information is protected by the Federal Confidentiality of Alcohol and Drug Abuse Patient Records regulations: The Federal rules restrict any use of the information to criminally investigate or prosecute any alcohol or drug abuse patient.[facility] the event this information is protected by the Federal Confidentiality of Alcohol and Drug Abuse Patient Records regulations: The Federal rules restrict any use of the information to criminally investigate or prosecute any alcohol or drug abuse patient.[facility] the event this information is protected by the Federal Confidentiality of Alcohol and Drug Abuse Patient Records regulations: The Federal rules restrict any use of the information to criminally investigate or prosecute any alcohol or drug abuse patient.[facility] the event this information is protected by the Federal Confidentiality of Alcohol and Drug Abuse Patient Records regulations: The Federal rules restrict any use of the information to criminally investigate or prosecute any alcohol or drug abuse patient.[facility] the event this information is protected by the Federal Confidentiality of Alcohol and Drug Abuse Patient Records regulations: The Federal rules restrict any use of the information to criminally investigate or prosecute any alcohol or drug abuse patient.[facility] the event this information is protected by the Federal Confidentiality of Alcohol and Drug Abuse Patient Records regulations: The Federal rules restrict any use of the information to criminally investigate or prosecute any alcohol or drug abuse patient.[facility] the event this information is protected by the Federal Confidentiality of Alcohol and Drug Abuse Patient Records regulations: The Federal rules restrict any use of the information to criminally investigate or prosecute any alcohol or drug abuse patient.[facility] the event this information is protected by the Federal Confidentiality of Alcohol and Drug Abuse Patient Records regulations: The Federal rules restrict any use of the information to criminally investigate or prosecute any alcohol or drug abuse patient.[facility] the event this information is protected by the Federal Confidentiality of Alcohol and Drug Abuse Patient Records regulations: The Federal rules restrict any use of the information to criminally investigate or prosecute any alcohol or drug abuse patient.[facility]In the event this information is protected by the Federal Confidentiality of Alcohol and Drug Abuse Patient Records regulations: The Federal rules restrict any use of the information to criminally investigate or prosecute any alcohol or drug abuse patient.[facility] [place]In the event this information is protected by the Federal Confidentiality of Alcohol and Drug Abuse Patient Records regulations: The Federal rules restrict any use of the information to criminally investigate or prosecute any alcohol or drug abuse patient.[facility] [place]imaIn the event this information is protected by the Federal Confidentiality of Alcohol and Drug Abuse Patient Records regulations: The Federal rules restrict any use of the information to criminally investigate or prosecute any alcohol or drug abuse patient.[facility] [place]In the event this information is protected by the Federal Confidentiality of Alcohol and Drug Abuse Patient Records regulations: The Federal rules restrict any use of the information to criminally investigate or prosecute any alcohol or drug abuse patient.[facility] [place]In the event this information is protected by the Federal Confidentiality of Alcohol and Drug Abuse Patient Records regulations: The Federal rules restrict any use of the information to criminally investigate or prosecute any alcohol or drug abuse patient.[facility] [place]In the event this information is protected by the Federal Confidentiality of Alcohol and Drug Abuse Patient Records regulations: The Federal rules restrict any use of the information to criminally investigate or prosecute any alcohol or drug abuse patient.[facility] [place]In the event this information is protected by the Federal Confidentiality of Alcohol and Drug Abuse Patient Records regulations: The Federal rules restrict any use of the information to criminally investigate or prosecute any alcohol or drug abuse patient.[facility] [place]In the event this information is protected by the Federal Confidentiality of Alcohol and Drug Abuse Patient Records regulations: The Federal rules restrict any use of the information to criminally investigate or prosecute any alcohol or drug abuse patient.[facility] [place]In the event this information is protected by the Federal Confidentiality of Alcohol and Drug Abuse Patient Records regulations: The Federal rules restrict any use of the information to criminally investigate or prosecute any alcohol or drug abuse patient.[facility] [place]In the event this information is protected by the Federal Confidentiality of Alcohol and Drug Abuse Patient Records regulations: The Federal rules restrict any use of the information to criminally investigate or prosecute any alcohol or drug abuse patient.[facility] [place]In the event this information is protected by the Federal Confidentiality of Alcohol and Drug Abuse Patient Records regulations: The Federal rules restrict any use of the information to criminally investigate or prosecute any alcohol or drug abuse patient.[facility] [place]In the event this information is protected by the Federal Confidentiality of Alcohol and Drug Abuse Patient Records regulations: The Federal rules restrict any use of the information to criminally investigate or prosecute any alcohol or drug abuse patient.[facility] [place]imaIn the event this information is protected by the Federal Confidentiality of Alcohol and Drug Abuse Patient Records regulations: The Federal rules restrict any use of the information to criminally investigate or prosecute any alcohol or drug abuse patient.[facility] [place]In the event this information is protected by the Federal Confidentiality of Alcohol and Drug Abuse Patient Records regulations: The Federal rules restrict any use of the information to criminally investigate or prosecute any alcohol or drug abuse patient.[facility] [place]In the event this information is protected by the Federal Confidentiality of Alcohol and Drug Abuse Patient Records regulations: The Federal rules restrict any use of the information to criminally investigate or prosecute any alcohol or drug abuse patient.[facility] [place]In the event this information is protected by the Federal Confidentiality of Alcohol and Drug Abuse Patient Records regulations: The Federal rules restrict any use of the information to criminally investigate or prosecute any alcohol or drug abuse patient.[facility] [place]In the event this information is protected by the Federal Confidentiality of Alcohol and Drug Abuse Patient Records regulations: The Federal rules restrict any use of the information to criminally investigate or prosecute any alcohol or drug abuse patient.[facility] [place]In the event this information is protected by the Federal Confidentiality of Alcohol and Drug Abuse Patient Records regulations: The Federal rules restrict any use of the information to criminally investigate or prosecute any alcohol or drug abuse patient.[facility] [place]imaIn the event this information is protected by the Federal Confidentiality of Alcohol and Drug Abuse Patient Records regulations: The Federal rules restrict any use of the information to criminally investigate or prosecute any alcohol or drug abuse patient.[facility] [place]In the event this information is protected by the Federal Confidentiality of Alcohol and Drug Abuse Patient Records regulations: The Federal rules restrict any use of the information to criminally investigate or prosecute any alcohol or drug abuse patient.[facility] [place]In the event this information is protected by the Federal Confidentiality of Alcohol and Drug Abuse Patient Records regulations: The Federal rules restrict any use of the information to criminally investigate or prosecute any alcohol or drug abuse patient.[facility] [place]In the event this information is protected by the Federal Confidentiality of Alcohol and Drug Abuse Patient Records regulations: The Federal rules restrict any use of the information to criminally investigate or prosecute any alcohol or drug abuse patient.[facility] [place]In the event this information is protected by the Federal Confidentiality of Alcohol and Drug Abuse Patient Records regulations: The Federal rules restrict any use of the information to criminally investigate or prosecute any alcohol or drug abuse patient.[facility] [place]In the event this information is protected by the Federal Confidentiality of Alcohol and Drug Abuse Patient Records regulations: The Federal rules restrict any use of the information to criminally investigate or prosecute any alcohol or drug abuse patient.[facility] [place]In the event this information is protected by the Federal Confidentiality of Alcohol and Drug Abuse Patient Records regulations: The Federal rules restrict any use of the information to criminally investigate or prosecute any alcohol or drug abuse patient.[facility] [place]In the event this information is protected by the Federal Confidentiality of Alcohol and Drug Abuse Patient Records regulations: The Federal rules restrict any use of the information to criminally investigate or prosecute any alcohol or drug abuse patient.[facility] [place]imaIn the event this information is protected by the Federal Confidentiality of Alcohol and Drug Abuse Patient Records regulations: The Federal rules restrict any use of the information to criminally investigate or prosecute any alcohol or drug abuse patient.[facility] [place]imaIn the event this information is protected by the Federal Confidentiality of Alcohol and Drug Abuse Patient Records regulations: The Federal rules restrict any use of the information to criminally investigate or prosecute any alcohol or drug abuse patient.[facility] [place]imaIn the event this information is protected by the Federal Confidentiality of Alcohol and Drug Abuse Patient Records regulations: The Federal rules restrict any use of the information to criminally investigate or prosecute any alcohol or drug abuse patient.[facility] [place]In the event this information is protected by the Federal Confidentiality of Alcohol and Drug Abuse Patient Records regulations: The Federal rules restrict any use of the information to criminally investigate or prosecute any alcohol or drug abuse patient.[facility] [place]In the event this information is protected by the Federal Confidentiality of Alcohol and Drug Abuse Patient Records regulations: The Federal rules restrict any use of the information to criminally investigate or prosecute any alcohol or drug abuse patient.[facility] [place]In the event this information is protected by the Federal Confidentiality of Alcohol and Drug Abuse Patient Records regulations: The Federal rules restrict any use of the information to criminally investigate or prosecute any alcohol or drug abuse patient.[facility] [place]In the event this information is protected by the Federal Confidentiality of Alcohol and Drug Abuse Patient Records regulations: The Federal rules restrict any use of the information to criminally investigate or prosecute any alcohol or drug abuse patient.[facility] [place]In the event this information is protected by the Federal Confidentiality of Alcohol and Drug Abuse Patient Records regulations: The Federal rules restrict any use of the information to criminally investigate or prosecute any alcohol or drug abuse patient.[facility] [place]In the event this information is protected by the Federal Confidentiality of Alcohol and Drug Abuse Patient Records regulations: The Federal rules restrict any use of the information to criminally investigate or prosecute any alcohol or drug abuse patient.[facility] [place]In the event this information is protected by the Federal Confidentiality of Alcohol and Drug Abuse Patient Records regulations: The Federal rules restrict any use of the information to criminally investigate or prosecute any alcohol or drug abuse patient.[facility] [place]In the event this information is protected by the Federal Confidentiality of Alcohol and Drug Abuse Patient Records regulations: The Federal rules restrict any use of the information to criminally investigate or prosecute any alcohol or drug abuse patient.[facility] [place]imaIn the event this information is protected by the Federal Confidentiality of Alcohol and Drug Abuse Patient Records regulations: The Federal rules restrict any use of the information to criminally investigate or prosecute any alcohol or drug abuse patient.[facility] [place]In the event this information is protected by the Federal Confidentiality of Alcohol and Drug Abuse Patient Records regulations: The Federal rules restrict any use of the information to criminally investigate or prosecute any alcohol or drug abuse patient.[facility] [place]In the event this information is protected by the Federal Confidentiality of Alcohol and Drug Abuse Patient Records regulations: The Federal rules restrict any use of the information to criminally investigate or prosecute any alcohol or drug abuse patient.[facility] [place]In the event this information is protected by the Federal Confidentiality of Alcohol and Drug Abuse Patient Records regulations: The Federal rules restrict any use of the information to criminally investigate or prosecute any alcohol or drug abuse patient.[facility] [place]In the event this information is protected by the Federal Confidentiality of Alcohol and Drug Abuse Patient Records regulations: The Federal rules restrict any use of the information to criminally investigate or prosecute any alcohol or drug abuse patient.[facility] [place]In the event this information is protected by the Federal Confidentiality of Alcohol and Drug Abuse Patient Records regulations: The Federal rules restrict any use of the information to criminally investigate or prosecute any alcohol or drug abuse patient.[facility]imaIn the event this information is protected by the Federal Confidentiality of Alcohol and Drug Abuse Patient Records regulations: The Federal rules restrict any use of the information to criminally investigate or prosecute any alcohol or drug abuse patient.[facility] [place]imaIn the event this information is protected by the Federal Confidentiality of Alcohol and Drug Abuse Patient Records regulations: The Federal rules restrict any use of the information to criminally investigate or prosecute any alcohol or drug abuse patient.[facility] [place]imaIn the event this information is protected by the Federal Confidentiality of Alcohol and Drug Abuse Patient Records regulations: The Federal rules restrict any use of the information to criminally investigate or prosecute any alcohol or drug abuse patient.[facility] [place]imaIn the event this information is protected by the Federal Confidentiality of Alcohol and Drug Abuse Patient Records regulations: The Federal rules restrict any use of the information to criminally investigate or prosecute any alcohol or drug abuse patient.[facility]In the event this information is protected by the Federal Confidentiality of Alcohol and Drug Abuse Patient Records regulations: The Federal rules restrict any use of the information to criminally investigate or prosecute any alcohol or drug abuse patient.[facility] [place]In the event this information is protected by the Federal Confidentiality of Alcohol and Drug Abuse Patient Records regulations: The Federal rules restrict any use of the information to criminally investigate or prosecute any alcohol or drug abuse patient.[facility] [place]imaIn the event this information is protected by the Federal Confidentiality of Alcohol and Drug Abuse Patient Records regulations: The Federal rules restrict any use of the information to criminally investigate or prosecute any alcohol or drug abuse patient.[facility] [place]In the event this information is protected by the Federal Confidentiality of Alcohol and Drug Abuse Patient Records regulations: The Federal rules restrict any use of the information to criminally investigate or prosecute any alcohol or drug abuse patient.[facility] [place]In the event this information is protected by the Federal Confidentiality of Alcohol and Drug Abuse Patient Records regulations: The Federal rules restrict any use of the information to criminally investigate or prosecute any alcohol or drug abuse patient.[facility] [place]In the event this information is protected by the Federal Confidentiality of Alcohol and Drug Abuse Patient Records regulations: The Federal rules restrict any use of the information to criminally investigate or prosecute any alcohol or drug abuse patient.[facility] [place]In the event this information is protected by the Federal Confidentiality of Alcohol and Drug Abuse Patient Records regulations: The Federal rules restrict any use of the information to criminally investigate or prosecute any alcohol or drug abuse patient.[facility] [place]In the event this information is protected by the Federal Confidentiality of Alcohol and Drug Abuse Patient Records regulations: The Federal rules restrict any use of the information to criminally investigate or prosecute any alcohol or drug abuse patient.[facility] [place]In the event this information is protected by the Federal Confidentiality of Alcohol and Drug Abuse Patient Records regulations: The Federal rules restrict any use of the information to criminally investigate or prosecute any alcohol or drug abuse patient.[facility] [place]In the event this information is protected by the Federal Confidentiality of Alcohol and Drug Abuse Patient Records regulations: The Federal rules restrict any use of the information to criminally investigate or prosecute any alcohol or drug abuse patient.[facility] [place]imaIn the event this information is protected by the Federal Confidentiality of Alcohol and Drug Abuse Patient Records regulations: The Federal rules restrict any use of the information to criminally investigate or prosecute any alcohol or drug abuse patient.[facility] [place]In the event this information is protected by the Federal Confidentiality of Alcohol and Drug Abuse Patient Records regulations: The Federal rules restrict any use of the information to criminally investigate or prosecute any alcohol or drug abuse patient.[facility] [place]imaIn the event this information is protected by the Federal Confidentiality of Alcohol and Drug Abuse Patient Records regulations: The Federal rules restrict any use of the information to criminally investigate or prosecute any alcohol or drug abuse patient.[facility] [place]imaIn the event this information is protected by the Federal Confidentiality of Alcohol and Drug Abuse Patient Records regulations: The Federal rules restrict any use of the information to criminally investigate or prosecute any alcohol or drug abuse patient.[facility] [place]imaIn the event this information is protected by the Federal Confidentiality of Alcohol and Drug Abuse Patient Records regulations: The Federal rules restrict any use of the information to criminally investigate or prosecute any alcohol or drug abuse patient.[facility]imaIn the event this information is protected by the Federal Confidentiality of Alcohol and Drug Abuse Patient Records regulations: The Federal rules restrict any use of the information to criminally investigate or prosecute any alcohol or drug abuse patient.[facility]imaIn the event this information is protected by the Federal Confidentiality of Alcohol and Drug Abuse Patient Records regulations: The Federal rules restrict any use of the information to criminally investigate or prosecute any alcohol or drug abuse patient.[facility]In the event this information is protected by the Federal Confidentiality of Alcohol and Drug Abuse Patient Records regulations: The Federal rules restrict any use of the information to criminally investigate or prosecute any alcohol or drug abuse patient.[facility]imaIn the event this information is protected by the Federal Confidentiality of Alcohol and Drug Abuse Patient Records regulations: The Federal rules restrict any use of the information to criminally investigate or prosecute any alcohol or drug abuse patient.[facility]In the event this information is protected by the Federal Confidentiality of Alcohol and Drug Abuse Patient Records regulations: The Federal rules restrict any use of the information to criminally investigate or prosecute any alcohol or drug abuse patient.[facility]imaIn the event this information is protected by the Federal Confidentiality of Alcohol and Drug Abuse Patient Records regulations: The Federal rules restrict any use of the information to criminally investigate or prosecute any alcohol or drug abuse patient.[facility]In the event this information is protected by the Federal Confidentiality of Alcohol and Drug Abuse Patient Records regulations: The Federal rules restrict any use of the information to criminally investigate or prosecute any alcohol or drug abuse patient.[facility]In the event this information is protected by the Federal Confidentiality of Alcohol and Drug Abuse Patient Records regulations: The Federal rules restrict any use of the information to criminally investigate or prosecute any alcohol or drug abuse patient.[facility]In the event this information is protected by the Federal Confidentiality of Alcohol and Drug Abuse Patient Records regulations: The Federal rules restrict any use of the information to criminally investigate or prosecute any alcohol or drug abuse patient.[facility] [place]In the event this information is protected by the Federal Confidentiality of Alcohol and Drug Abuse Patient Records regulations: The Federal rules restrict any use of the information to criminally investigate or prosecute any alcohol or drug abuse patient.[facility] [place]imaIn the event this information is protected by the Federal Confidentiality of Alcohol and Drug Abuse Patient Records regulations: The Federal rules restrict any use of the information to criminally investigate or prosecute any alcohol or drug abuse patient.[facility]imaIn the event this information is protected by the Federal Confidentiality of Alcohol and Drug Abuse Patient Records regulations: The Federal rules restrict any use of the information to criminally investigate or prosecute any alcohol or drug abuse patient.[facility]imaIn the event this information is protected by the Federal Confidentiality of Alcohol and Drug Abuse Patient Records regulations: The Federal rules restrict any use of the information to criminally investigate or prosecute any alcohol or drug abuse patient.[facility] [place]imaIn the event this information is protected by the Federal Confidentiality of Alcohol and Drug Abuse Patient Records regulations: The Federal rules restrict any use of the information to criminally investigate or prosecute any alcohol or drug abuse patient.[facility] [place]imaIn the event this information is protected by the Federal Confidentiality of Alcohol and Drug Abuse Patient Records regulations: The Federal rules restrict any use of the information to criminally investigate or prosecute any alcohol or drug abuse patient.[facility] [place]imaIn the event this information is protected by the Federal Confidentiality of Alcohol and Drug Abuse Patient Records regulations: The Federal rules restrict any use of the information to criminally investigate or prosecute any alcohol or drug abuse patient.[facility] [place]imaIn the event this information is protected by the Federal Confidentiality of Alcohol and Drug Abuse Patient Records regulations: The Federal rules restrict any use of the information to criminally investigate or prosecute any alcohol or drug abuse patient.[facility]imaIn the event this information is protected by the Federal Confidentiality of Alcohol and Drug Abuse Patient Records regulations: The Federal rules restrict any use of the information to criminally investigate or prosecute any alcohol or drug abuse patient.[facility] [place]imaIn the event this information is protected by the Federal Confidentiality of Alcohol and Drug Abuse Patient Records regulations: The Federal rules restrict any use of the information to criminally investigate or prosecute any alcohol or drug abuse patient.[facility]imaIn the event this information is protected by the Federal Confidentiality of Alcohol and Drug Abuse Patient Records regulations: The Federal rules restrict any use of the information to criminally investigate or prosecute any alcohol or drug abuse patient.[facility]imaIn the event this information is protected by the Federal Confidentiality of Alcohol and Drug Abuse Patient Records regulations: The Federal rules restrict any use of the information to criminally investigate or prosecute any alcohol or drug abuse patient.[facility] [place]imaIn the event this information is protected by the Federal Confidentiality of Alcohol and Drug Abuse Patient Records regulations: The Federal rules restrict any use of the information to criminally investigate or prosecute any alcohol or drug abuse patient.[facility]imaIn the event this information is protected by the Federal Confidentiality of Alcohol and Drug Abuse Patient Records regulations: The Federal rules restrict any use of the information to criminally investigate or prosecute any alcohol or drug abuse patient.[facility]imaIn the event this information is protected by the Federal Confidentiality of Alcohol and Drug Abuse Patient Records regulations: The Federal rules restrict any use of the information to criminally investigate or prosecute any alcohol or drug abuse patient.[facility]imaIn the event this information is protected by the Federal Confidentiality of Alcohol and Drug Abuse Patient Records regulations: The Federal rules restrict any use of the information to criminally investigate or prosecute any alcohol or drug abuse patient.[facility]imaIn the event this information is protected by the Federal Confidentiality of Alcohol and Drug Abuse Patient Records regulations: The Federal rules restrict any use of the information to criminally investigate or prosecute any alcohol or drug abuse patient.[facility]ima[facility] the event this information is protected by the Federal Confidentiality of Alcohol and Drug Abuse Patient Records regulations: The Federal rules restrict any use of the information to criminally investigate or prosecute any alcohol or drug abuse patient.[facility]imaIn the event this information is protected by the Federal Confidentiality of Alcohol and Drug Abuse Patient Records regulations: The Federal rules restrict any use of the information to criminally investigate or prosecute any alcohol or drug abuse patient.[facility]imaIn the event this information is protected by the Federal Confidentiality of Alcohol and Drug Abuse Patient Records regulations: The Federal rules restrict any use of the information to criminally investigate or prosecute any alcohol or drug abuse patient.[facility]imaIn the event this information is protected by the Federal Confidentiality of Alcohol and Drug Abuse Patient Records regulations: The Federal rules restrict any use of the information to criminally investigate or prosecute any alcohol or drug abuse patient.[facility]imaIn the event this information is protected by the Federal Confidentiality of Alcohol and Drug Abuse Patient Records regulations: The Federal rules restrict any use of the information to criminally investigate or prosecute any alcohol or drug abuse patient.[facility]ima[facility] the event this information is protected by the Federal Confidentiality of Alcohol and Drug Abuse Patient Records regulations: The Federal rules restrict any use of the information to criminally investigate or prosecute any alcohol or drug abuse patient.[facility]imaIn the event this information is protected by the Federal Confidentiality of Alcohol and Drug Abuse Patient Records regulations: The Federal rules restrict any use of the information to criminally investigate or prosecute any alcohol or drug abuse patient.[facility]imaIn the event this information is protected by the Federal Confidentiality of Alcohol and Drug Abuse Patient Records regulations: The Federal rules restrict any use of the information to criminally investigate or prosecute any alcohol or drug abuse patient.[facility]imaIn the event this information is protected by the Federal Confidentiality of Alcohol and Drug Abuse Patient Records regulations: The Federal rules restrict any use of the information to criminally investigate or prosecute any alcohol or drug abuse patient.[facility]imaIn the event this information is protected by the Federal Confidentiality of Alcohol and Drug Abuse Patient Records regulations: The Federal rules restrict any use of the information to criminally investigate or prosecute any alcohol or drug abuse patient.[facility]imaIn the event this information is protected by the Federal Confidentiality of Alcohol and Drug Abuse Patient Records regulations: The Federal rules restrict any use of the information to criminally investigate or prosecute any alcohol or drug abuse patient.[facility]imaIn the event this information is protected by the Federal Confidentiality of Alcohol and Drug Abuse Patient Records regulations: The Federal rules restrict any use of the information to criminally investigate or prosecute any alcohol or drug abuse patient.[facility]imaIn the event this information is protected by the Federal Confidentiality of Alcohol and Drug Abuse Patient Records regulations: The Federal rules restrict any use of the information to criminally investigate or prosecute any alcohol or drug abuse patient.[facility]imaIn the event this information is protected by the Federal Confidentiality of Alcohol and Drug Abuse Patient Records regulations: The Federal rules restrict any use of the information to criminally investigate or prosecute any alcohol or drug abuse patient.[facility]imaIn the event this information is protected by the Federal Confidentiality of Alcohol and Drug Abuse Patient Records regulations: The Federal rules restrict any use of the information to criminally investigate or prosecute any alcohol or drug abuse patient.[facility]imaIn the event this information is protected by the Federal Confidentiality of Alcohol and Drug Abuse Patient Records regulations: The Federal rules restrict any use of the information to criminally investigate or prosecute any alcohol or drug abuse patient.[facility]imaIn the event this information is protected by the Federal Confidentiality of Alcohol and Drug Abuse Patient Records regulations: The Federal rules restrict any use of the information to criminally investigate or prosecute any alcohol or drug abuse patient.[facility]imaIn the event this information is protected by the Federal Confidentiality of Alcohol and Drug Abuse Patient Records regulations: The Federal rules restrict any use of the information to criminally investigate or prosecute any alcohol or drug abuse patient.[facility]imaIn the event this information is protected by the Federal Confidentiality of Alcohol and Drug Abuse Patient Records regulations: The Federal rules restrict any use of the information to criminally investigate or prosecute any alcohol or drug abuse patient.[facility]imaIn the event this information is protected by the Federal Confidentiality of Alcohol and Drug Abuse Patient Records regulations: The Federal rules restrict any use of the information to criminally investigate or prosecute any alcohol or drug abuse patient.[facility]imaIn the event this information is protected by the Federal Confidentiality of Alcohol and Drug Abuse Patient Records regulations: The Federal rules restrict any use of the information to criminally investigate or prosecute any alcohol or drug abuse patient.[facility]imaIn the event this information is protected by the Federal Confidentiality of Alcohol and Drug Abuse Patient Records regulations: The Federal rules restrict any use of the information to criminally investigate or prosecute any alcohol or drug abuse patient.[facility]imaIn the event this information is protected by the Federal Confidentiality of Alcohol and Drug Abuse Patient Records regulations: The Federal rules restrict any use of the information to criminally investigate or prosecute any alcohol or drug abuse patient.[facility] Care Teams (unrecognized sec tion and content) Railroad Car Inspector Relationship Specialty Start Date End Date Kentrell Dhaliwal II, MD [address] [place] [address] [address] [place], [place] [id number] PCP - General Family Practice 08/18/20 Maximo Benavides, breast trimmer Stem Teacher 11/25/21 01/25/22 Railroad Car Inspector Relationship Specialty Start Date End Date Kentrell Dhaliwal II, MD [address] [place] [address] [address] [place], [place] [id number] PCP - General Family Practice 08/18/20 Maximo Benavides, breast trimmer Stem Teacher 11/25/21 01/25/22 Railroad Car Inspector Relationship Specialty Start Date End Date Kentrell Dhaliwal II, MD [address] [facility] [address] [place], [place] [id number] PCP - General Family Practice 08/18/20 Maximo Benavides RN Primary Care Stem Teacher 11/25/21 01/25/22 Railroad Car Inspector Relationship Specialty Start Date End Date Kentrell Dhaliwal II, MD [address] [facility] [address] [place], [place] [id number] PCP - General Family Practice 08/18/20 Maximo Benavides RN Primary Care Stem Teacher 11/25/21 01/25/22 Railroad Car Inspector Relationship Specialty Start Date End Date Kentrell Dhaliwal II, MD [address] [facility] [place] [address] PCP - General Family Practice 08/18/20 Maximo Benavides RN Primary Care Stem Teacher 11/25/21 01/25/22 Railroad Car Inspector Relationship Specialty Start Date End Date Kentrell Dhaliwal II, MD [address] [facility] [place] [address] PCP - General Family Practice 08/18/20 Maximo Benavides RN Primary Care Stem Teacher 11/25/21 01/25/22 Railroad Car Inspector Relationship Specialty Start Date End Date Kentrell Dhaliwal II, MD [address] [facility] [place] [address] PCP - General Family Practice 08/18/20 Maximo Benavides RN Primary Care Stem Teacher 11/25/21 01/25/22 Railroad Car Inspector Relationship Specialty Start Date End Date Kentrell Dhaliwal II, MD [address] [facility] [place] [address] PCP - General Family Practice 08/18/20 Maximo Benavides breast trimmer Stem Teacher 11/25/21 01/25/22 Railroad Car Inspector Relationship Specialty Start Date End Date Kentrell Dhlaiwal II, MD [address] [facility] [place] [address] PCP - General Family Practice 08/18/20 Maximo Benavides RN Primary Care Stem Teacher 11/25/21 01/25/22 Railroad Car Inspector Relationship Specialty Start Date End Date Kentrell Dhaliwal II, MD [address] [place] [address] [address] [place], [place] 787222 PCP - General Family Practice 08/18/20 Maximo Benavides, breast trimmer Stem Teacher 11/25/21 01/25/22 Railroad Car Inspector Relationship Specialty Start Date End Date Kentrell Dhaliwal II, MD [address] [place] [address] [address] [place], [place] [id number] PCP - General Family Practice 08/18/20 Maximo Benavides, breast trimmer Stem Teacher 11/25/21 01/25/22 Railroad Car Inspector Relationship Specialty Start Date End Date Kentrell Dhaliwal II, MD [address] [place] [address] [address] [place], [place] [id number] PCP - General Family Practice 08/18/20 Maximo Benavides, breast trimmer Stem Teacher 11/25/21 01/20/22 Railroad Car Inspector Relationship Specialty Start Date End Date Kentrell Dhaliwal II, MD [address] [place] [address] [place] [address] PCP - General Family Practice 08/18/20 Maximo Benavides, breast trimmer Stem Teacher 11/25/21 01/20/22 Railroad Car Inspector Relationship Specialty Start Date End Date Kentrell Dhaliwal II, MD [address] [place] [address] [place] [address] PCP - General Family Practice 08/18/20 Maximo Benavides, breast trimmer Stem Teacher 11/25/21 01/20/22 Railroad Car Inspector Relationship Specialty Start Date End Date Kentrell Dhaliwal II, MD [address] [place] [address] [place] [address] PCP - General Family Practice 08/18/20 Maximo Benavides, breast trimmer Stem Teacher 11/25/21 01/20/22 Railroad Car Inspector Relationship Specialty Start Date End Date Kentrell Dhaliwal II, MD [address] [place] [address] [address] [place], [place] 238872 PCP - General Family Practice 08/18/20 Maximo Benavides, breast trimmer Stem Teacher 11/25/21 01/20/22 Railroad Car Inspector Relationship Specialty Start Date End Date Kentrell Dhaliwal II, MD [address] [place] [address] [place] [address] PCP - General Family Practice 08/18/20 Maximo Benavides, breast trimmer Stem Teacher 11/25/21 01/20/22 Railroad Car Inspector Relationship Specialty Start Date End Date Kentrell Dhaliwal II, MD [address] [place] [address] [place] [address] PCP - General Family Practice 08/18/20 Maximo Benavides, breast trimmer Stem Teacher 11/25/21 01/20/22 Railroad Car Inspector Relationship Specialty Start Date End Date Kentrell Dhaliwal II, MD [address] [place] [address] [place] [address] PCP - General Family Practice 08/18/20 Railroad Car Inspector Relationship Specialty Start Date End Date Kentrell Dhaliwal II, MD [address] [place] [address] [place] [address] PCP - General Family Practice 08/18/20 Railroad Car Inspector Relationship Specialty Start Date End Date Kentrell Dhaliwal II, MD [address] [place] [address] [place] [address] PCP - General Family Practice 08/18/20 Railroad Car Inspector Relationship Specialty Start Date End Date Kentrell Dhaliwal II, MD [address] [place] [address] [place] [address] PCP - General Family Practice 08/18/20 Railroad Car Inspector Relationship Specialty Start Date End Date Kentrell Dhaliwal II, MD [address] [place] [address] [place] [address] PCP - General Family Practice 08/18/20 Railroad Car Inspector Relationship Specialty Start Date End Date Kentrell Dhaliwal II, MD [address] [place] [address] [place] [address] PCP - General Family Practice 08/18/20 Railroad Car Inspector Relationship Specialty Start Date End Date Kentrell Dhaliwal II, MD [address] [facility] [place] [address] PCP - General Family Practice 08/18/20 Railroad Car Inspector Relationship Specialty Start Date End Date Kentrell Dhaliwal II, MD [address] [facility] [address] PCP - General Family Practice 08/18/20 Railroad Car Inspector Relationship Specialty Start Date End Date Kentrell Dhaliwal II, MD [address] [place] [address] [place] [address] PCP - General Family Practice 08/18/20 Railroad Car Inspector Relationship Specialty Start Date End Date Kentrell Dhaliwal II, MD [address] [place] [address] [place] [address] PCP - General Family Practice 08/18/20 Railroad Car Inspector Relationship Specialty Start Date End Date Kentrell Dhaliwal II, MD [address] [place] [address] [place] [address] PCP - General Family Practice 08/18/20 Railroad Car Inspector Relationship Specialty Start Date End Date Kentrell Dhaliwal II, MD [address] [place] [address] [place] [address] PCP - General Family Practice 08/18/20 Railroad Car Inspector Relationship Specialty Start Date End Date Kentrell Dhaliwal II, MD [address] [place] [address] [place] [address] PCP - General Family Practice 08/18/20 Railroad Car Inspector Relationship Specialty Start Date End Date Kentrell Dhaliwal II, MD [address] [place] [address] [place] [address] PCP - General Family Practice 08/18/20 Railroad Car Inspector Relationship Specialty Start Date End Date Kentrell Dhaliwal II, MD [address] [place] [address] [place] [address] PCP - General Family Practice 08/18/20 Railroad Car Inspector Relationship Specialty Start Date End Date Kentrell Dhaliwal II, MD [address] [place] [address] [place] [address] PCP - General Family Practice 08/18/20 Railroad Car Inspector Relationship Specialty Start Date End Date Kentrell Dhaliwal II, MD [address] [place] [address] [place] [address] PCP - General Family Practice 08/18/20 Railroad Car Inspector Relationship Specialty Start Date End Date Kentrell Dhaliwal II, MD [address] [place] [address] [place] [address] PCP - General Family Practice 08/18/20 Railroad Car Inspector Relationship Specialty Start Date End Date Kentrell Dhaliwal II, MD [address] [place] [address] [place] [address] PCP - General Family Practice 08/18/20 Railroad Car Inspector Relationship Specialty Start Date End Date Kentrell Dhaliwal II, MD [address] [place] [address] [place] [address] PCP - General Family Practice 08/18/20 Railroad Car Inspector Relationship Specialty Start Date End Date Kentrell Dhaliwal II, MD [address] [place] [address] [place] [address] PCP - General Family Medicine 08/18/20 Railroad Car Inspector Relationship Specialty Start Date End Date Kentrell Dhaliwal II, MD [address] [place] [address] [place] [address] PCP - General Family Medicine 08/18/20 Railroad Car Inspector Relationship Specialty Start Date End Date Kentrell Dhaliwal II, MD [address] [place] [address] [place] [address] PCP - General Family Medicine 08/18/20 Railroad Car Inspector Relationship Specialty Start Date End Date Kentrell Dhaliwal II, MD [address] [place] [address] [place] [address] PCP - General Family Medicine 08/18/20 Railroad Car Inspector Relationship Specialty Start Date End Date Kentrell Dhaliwal II, MD [address] [place] [address] [place] [address] PCP - General Family Medicine 08/18/20 Railroad Car Inspector Relationship Specialty Start Date End Date Kentrell Dhaliwal II, MD [address] [place] [address] [place] [address] PCP - General Family Medicine 08/18/20 Silvia Hicks, DAVID [address] [place] [address] Primary Care Stem Teacher 07/18/22 08/17/22 Railroad Car Inspector Relationship Specialty Start Date End Date Kentrell Dhaliwal II, MD [address] [place] [address] [place] [address] PCP - General Family Medicine 08/18/20 Silvia Hicks RN [address] [place] [address] Primary Care Stem Teacher 07/18/22 08/17/22 Railroad Car Inspector Relationship Specialty Start Date End Date Kentrell Dhaliwal II, MD [address] [place] [address] [place] [address] PCP - General Family Medicine 08/18/20 Silvia Hicks RN [address] [place] [address] Primary Care Stem Teacher 07/18/22 08/17/22 Railroad Car Inspector Relationship Specialty Start Date End Date Kentrell Dhaliwal II, MD [address] [place] [address] [place] [address] PCP - General Family Medicine 08/18/20 Silvia Hicks, [place] [address] Primary Care Stem Teacher 07/18/22 08/17/22 Railroad Car Inspector Relationship Specialty Start Date End Date Kentrell Dhaliwal II, MD [address] [place] [address] [address] [place], [place] 097872 PCP - General Family Medicine 08/18/20 Silvia Hicks, DAVID [address] [place] [address] Primary Care Stem Teacher 07/18/22 08/17/22 Railroad Car Inspector Relationship Specialty Start Date End Date Kentrell Dhaliwal II, MD [address] [place] [address] [place] [address] PCP - General Family Medicine 08/18/20 Silvia Hicks, DAVID [address] [place] [address] Primary Care Stem Teacher 07/18/22 08/17/22 Railroad Car Inspector Relationship Specialty Start Date End Date Kentrell Dhaliwal II, MD [address] [place] [address] [place] [address] PCP - General Family Medicine 08/18/20 Railroad Car Inspector Relationship Specialty Start Date End Date Kentrell Dhaliwal II, MD [address] [place] [address] [address] [place], [place] 098662 PCP - General Family Medicine 08/18/20 Team Status: Active Member Role Status Dates No Primary Care Physician Primary Care Provider Active Team Status: Inactive Member Role Status Dates Dr. Mika Anderson MD Emergency Provider Active No Primary Care Physician Primary Care Provider Active Railroad Car Inspector Relationship Specialty Start Date End Date Kentrell Dhaliwal II, MD [address] [place] [address] [place] [address] PCP - General Family Medicine 08/18/20 Railroad Car Inspector Relationship Specialty Start Date End Date Kentrell Dhaliwal II, MD [address] [place] [address] [place] [address] PCP - General Family Medicine 08/18/20 Team [...] Dhaliwal MD Primary Care Provider Active Dr. Jsesica Thomas MD Admit Provider, Other Provider Active [...] Oliver MD Other Provider Active Dr. Aly Fragoso MD Other Provider Active Dr. Marvin Edwards [...] Paulo Umanzor MD Other Provider Active Dr. Iovn Oliver MD Attending Provider Active Dr. Aly Fragoso MD Other Provider Active Railroad Car Inspector Relationship Specialty Start Date End Date Kentrell Dhaliwal II, MD [address] [place] [address] [address] [place], [place] 091852 PCP - General Family Medicine 08/18/20 Team [...] Dr. Matt Dominguez DO Emergency Provider Active Railroad Car Inspector Relationship Specialty Start Date End Date Kentrell Dhaliwal II, MD [address] [place] [address] [address] [place], [place] 209562 PCP - General Family Medicine 08/18/20 Railroad Car Inspector Relationship Specialty Start Date End Date Kentrell Dhaliwal II, MD [address] [place] [address] [address] [place], [place] 771152 PCP - General Family Medicine 08/18/20 Railroad Car Inspector Relationship Specialty Start Date End Date Kentrell Dhaliwal II, MD [address] [place] [address] [address] [place], [place] 138992 PCP - General Family Medicine 08/18/20 Railroad Car Inspector Relationship Specialty Start Date End Date Kentrell Dhaliwal II, MD [address] [place] [address] [address] [place], [place] 847682 PCP - General Family Medicine 08/18/20 Railroad Car Inspector Relationship Specialty Start Date End Date Kentrell Dhaliwal II, MD [address] [place] [address] [address] [place], [place] [id number] PCP - General Family Medicine 08/18/20 Railroad Car Inspector Relationship Specialty Start Date End Date Kentrell Dhaliwal II, MD [address] [place] [address] [address] [place], [place] 960052 PCP - General Family Medicine 08/18/20 Railroad Car Inspector Relationship Specialty Start Date End Date Kentrell Dhaliwal II, MD [address] [place] [address] [place] [address] PCP - General Family Medicine 08/18/20 Railroad Car Inspector Relationship Specialty Start Date End Date Radha Doyle APRN.PAPER REWINDER OPERATOR [address] [place] [address] [place] [address] PCP - General Family Medicine 06/16/20 06/21/20 Radha Doyle APRN.PAPER REWINDER OPERATOR [address] [place] [address] [place] [address] PCP - General Family Medicine 06/22/20 07/15/20 Kentrell Dhaliwal II, MD [address] [place] [address] [address] [place], [place] [id number] PCP - General Family Medicine 07/16/20 08/03/20 Radha Doyle APRN.PAPER REWINDER OPERATOR [address] [place] [address] [place], [place] [id number] PCP - General Family Medicine 08/04/20 08/17/20 Kentrell Dhaliwal II, MD [address] [place] [address] [address] [place], [place] 564742 PCP - General Family Medicine 08/18/20 Radha Doyle APRN.PAPER REWINDER OPERATOR [address] [place] [address] [place] [address] Family Medicine 06/22/20 07/15/20 Maximo Benavides, breast trimmer Stem Teacher 11/25/21 01/20/22 Silvia Hicks, DAVID [address] [place], [place] 706452 Primary Care Stem Teacher 07/18/22 08/17/22 Railroad Car Inspector Relationship Specialty Start Date End Date Kentrell Dhaliwal II, MD [address] [place] [address] [place] [address] PCP - General Family Medicine 08/18/20 Railroad Car Inspector Relationship Specialty Start Date End Date Kentrell Dhaliwal II, MD [address] [place] [address] [place] [address] PCP - General Family Medicine 08/18/20 Railroad Car Inspector Relationship Specialty Start Date End Date Kentrell Dhaliwal II, MD [address] [place] [address] [place] [address] PCP - General Family Medicine 08/18/20 Railroad Car Inspector Relationship Specialty Start Date End Date Kentrell Dhaliwal II, MD [address] [place] [address] [place] [address] PCP - General Family Medicine 08/18/20 Railroad Car Inspector Relationship Specialty Start Date End Date Kentrell Dhaliwal II, MD [address] [place] [address] [place] [address] PCP - General Family Medicine 08/18/20 Railroad Car Inspector Relationship Specialty Start Date End Date Kentrell Dhaliwal II, MD [address] [place] [address] [place] [address] PCP - General Family Medicine 08/18/20 Railroad Car Inspector Relationship Specialty Start Date End Date Kentrell Dhaliwal II, MD [address] [place] [address] [place] [address] PCP - General Family Medicine 08/18/20 Team [...] Dr. Aly Fragoso MD Other Provider Active Rogers RIVERA PA-C Attending Provider Active Team Status: [...] Dr. Mike Fraser DO Emergency Provider Active Railroad Car Inspector Relationship Specialty Start Date End Date Kentrell Dhaliwal II, MD [address] [place] [address] [address] [place], [place] 736252 PCP - General Family Medicine 08/18/20 Railroad Car Inspector Relationship Specialty Start Date End Date Kentrell Dhaliwal II, MD [address] [place] [address] [place] [address] PCP - General Family Medicine 08/18/20 Railroad Car Inspector Relationship Specialty Start Date End Date Kentrell Dhaliwal II, MD [address] [place] [address] [place] [address] PCP - General Family Medicine 08/18/20 Railroad Car Inspector Relationship Specialty Start Date End Date Kentrell Dhaliwal II, MD [address] [place] [address] [place] [address] PCP - General Family Medicine 08/18/20 Railroad Car Inspector Relationship Specialty Start Date End Date Kentrell Dhaliwal II, MD [address] [place] [address] [address] [place], [place] 073642 PCP - General Family Medicine 08/18/20 Silvia Hicks, [address] [place] [address] Primary Care Stem Teacher 07/18/22 08/17/22 Railroad Car Inspector Relationship Specialty Start Date End Date Kentrell Dhaliwal II, MD [address] [place] [address] [address] [place], [place] [id number] PCP - General Family Medicine 08/18/20 Railroad Car Inspector Relationship Specialty Start Date End Date Kentrell Dhaliwal II, MD [address] [place] [address] [place] [address] PCP - General Family Medicine 08/18/20 Railroad Car Inspector Relationship Specialty Start Date End Date Kentrell Dhaliwal II, MD [address] [place] [address] [place] [address] PCP - General Family Medicine 08/18/20 Railroad Car Inspector Relationship Specialty Start Date End Date Kentrell Dhaliwal II, MD [address] [place] [address] [place] [address] PCP - General Family Medicine 08/18/20 Gertrude Mccloud RN [phone] [address] Primary Care Stem Teacher 09/18/24 Railroad Car Inspector Relationship Specialty Start Date End Date Kentrell Dhaliwal II, MD [address] [place] [address] [place] [address] PCP - General Family Medicine 08/18/20 Railroad Car Inspector Relationship Specialty Start Date End Date Kentrell Dhaliwal II, MD [address] [place] [address] [place] [address] PCP - General Family Medicine 08/18/20 Gertrude Mccloud RN [phone] [address] Primary Care Stem Teacher 09/18/24 Railroad Car Inspector Relationship Specialty Start Date End Date Kentrell Dhaliwal II, MD [address] [place] [address] [place] [address] PCP - General Family Medicine 08/18/20 Gertrude Mccloud RN [phone] [address] Primary Care Stem Teacher 09/18/24 Railroad Car Inspector Relationship Specialty Start Date End Date Kentrell Dhaliwal II, MD [address] [place] [address] [address] [place], [place] [address] PCP - General Family Medicine 08/18/20 Gertrude Mccloud RN [phone] [address] Primary Care Stem Teacher 09/18/24 Railroad Car Inspector Relationship Specialty Start Date End Date Kentrell Dhaliwal II, MD [address] [place] [address] [place] [address] PCP - General Family Medicine 08/18/20 Gertrude Mccloud RN [phone] [address] Primary Care Stem Teacher 09/18/24 10/17/24 Railroad Car Inspector Relationship Specialty Start Date End Date Kentrell Dhaliwal II, MD PCP - General Family Medicine 08/18/20 Railroad Car Inspector Relationship Specialty Start Date End Date Kentrell Dhaliwal II, MD PCP - General Family Medicine 08/18/20 Railroad Car Inspector Relationship Specialty Start Date End Date Kentrell Dhaliwal II, MD PCP - General Family Medicine 08/18/20 Railroad Car Inspector Relationship Specialty Start Date End Date Kentrell Dhaliwal II, MD PCP - General Family Medicine 08/18/20 Railroad Car Inspector Relationship Specialty Start Date End Date Kentrell Dhaliwal II, MD PCP - General Family Medicine 08/18/20 Railroad Car Inspector Relationship Specialty Start Date End Date Kentrell Dhaliwal II, MD PCP - General Family Medicine 08/18/20 Railroad Car Inspector Relationship Specialty Start Date End Date Kentrell Dhaliwal II, MD PCP - General Family Medicine 08/18/20 Railroad Car Inspector Relationship Specialty Start Date End Date Kentrell Dhaliwal II, MD PCP - General Family Medicine 08/18/20 Railroad Car Inspector Relationship Specialty Start Date End Date Kentrell Dhaliwal II, MD PCP - General Family Medicine 08/18/20 Railroad Car Inspector Relationship Specialty Start Date End Date Kentrell Dhaliwal II, MD PCP - General Family Medicine 08/18/20 Railroad Car Inspector Relationship Specialty Start Date End Date Kentrell Dhaliwal II, MD PCP - General Family Medicine 08/18/20 Railroad Car Inspector Relationship Specialty Start Date End Date Kentrell Dhaliwal II, MD PCP - General Family Medicine 08/18/20 Railroad Car Inspector Relationship Specialty Start Date End Date Kentrell Dhaliwal II, MD PCP - General Family Medicine 08/18/20 Railroad Car Inspector Relationship Specialty Start Date End Date Kentrell [...] Onset Date Comments Transition Of Care 02/02/2022 [facility] l Discharged 02/01/2022. TCM Initial encounter Reason [...] Request 05/18/2022 Reason Comments Transition Of Care [facility] Admitted on 04/18 for Syncope R/T Polypharmacy, nausea and vomiting Urinary Problem Patient thinks she s till has UTI Reason Onset Date Comments Refill Request 06/06/2022 Reason Comments Patient Update Medication Problem Reason Onset Date Comments Transition Of Care 07/18/2022 GLENNY D/C [facility] 07/17/22 UTI, Partial bowel obstruction Reason Comments [...] Request 04/11/2023 Reason Comments Transition Of Care [facility] admit betsy on 04/01/2023 for SBO [...] RMP Radiology Service Pr ogress NotePATIENT NAME: Adina EscobarMRN: [id number] OF SERVICE: July 21, 2022TIME: 3:38 PMPATIENT [...] EXAM ABDOMEN [address] [place] [address] [place] [address] [place] [address] Referral ID Status Reason Start Date Expiration Date V isits Requested Visits Authorized [id number] Closed Auto-Generate d Referral 07/21/2022 08/20/2023 1 1 Reason Comments Follow Up 3 month follow up. P t states that she is having breathing issues. Using all of her inhalers. Pt stated that the time is coming that she will need to go to the intermediate. Pt needing refills. Pt would like to [...] Date Comments Population Health Navigation Outreach 03/13/2025 [employer] Reason Comments Palpitations Patient stated that her first spell was back in January. Patient stated she starts to sweat and gets faint. Patient stated she was on vacation and it occurred again but worse. Patient stated that the third time it occurred she was doing laundry. Weakness Patient stated in e last 6 weeks she as gotten weaker and having trouble keeping up with doing her normal routine Fatigue Shortness of Breath Refill Request Xanax Both inhalers Reason Onset Date Comments Refill Request 03/31/2025 INFORMATION SOURCE (unrecogn ized section and content) DATE CREATED AUTHOR 02/22/2022 [facility] Ifeoma franco [place] DATE CREATED AUTHOR AUTHOR'S ORGANIZ ATION 03/07/2022 [facility] DATE CREATED AUTHOR AUTHOR'S ORGANIZ ATION 03/17/2023 [facility] DATE CREATED AUTHOR AUTHOR'S ORGANIZ ATION 04/03/2025 [facility] DATE CREATED AUTHOR AUTHOR'S ORGANIZ ATION 04/04/2025 [facility] DATE CREATED AUTHOR AUTHOR'S ORGANIZ ATION 04/12/2025 [facility] Goals (unrecognized section and content) Goals [...] BE BASED ON THE PRIMARY CLINICAL RECORDS. [employer] provides no warranty or guarantee of the accuracy or completeness of information in this document.
--- OUTSIDE RECORDS SUMMARY | 2025-04-12 21:22 | XMS RPT_ITS | CCD ---
Author Organization [facility] Care Team Providers Care Urban Forester Name Role Phone Sergio GOLDMAN MD, Kentrell [place] Primary Care Provider Fareed HERNANDEZ, Maximo Unavailable Unavailable Sergio GOLDMAN MD, Kentrell [place] Primary Care Provider Sergio GOLDMAN MD, Kentrell [place] Primary Care Provider Sergio GOLDMAN MD, Kentrell [place] Primary Care Provider Fabiola HERNANDEZ, Silvia Unavailable Sergio GOLDMAN MD, Kentrell [place] Primary Care Provider Dr. Jose Stanton Emergency Provider [phone] Dr. Kentrell Dhaliwal Primary Care Provider Dr. Jessica Thomas Admit Provider Dr. Jessica Thomas Attending Provider Dr. Jessica Thomas Other Provider ABEL JOSEPH Consulting Unavailable HALINA MITCHELL Consulting Unavailable LEO EMERSON M.D. Consulting UnavailMARILYN Red Consulting Unavailable SHAYLA CHAIDEZ M.D. Admitting Unavailable JD WAITE M.D. Attending Unavailable KAILA UFNEZ Consulting Unavailable ADRIEN BROWN Admitting Unavailable ANUJA WALKER Attending Unavailable STUART TAYLOR Consulting Unavailable LEO EMERSON M.D. Attending UnavailKENTRELL Hatch II Attending Unavailable KENTRELL DHALIWAL II Attending Unavailable Dr. Aly Fragoso Other Provider Dr. Paulo Umanzor Attending Provider [phone] Dr. Paulo Umanzor Other Provider Dr. Ivon Oliver Other Provider Dr. Marvin Edwards Attending Provider Dr. Ivon Oliver Attending Provider Dr. Ivon Oliver Referring Provider Vivek MOLD FILLING OPERATOR.RETAIL SALES DIRECTOR, Radha Primary Care Provider Vivek MOLD FILLING OPERATOR.RETAIL SALES DIRECTOR, Radha Primary Care Provider Vivek MOLD FILLING OPERATOR.RETAIL SALES DIRECTOR, Radha Unavailable Sergio GOLDMAN MD, Kentrell [place] Primary Care Provider Vivek MOLD FILLING OPERATOR.RETAIL SALES DIRECTOR, Radha Primary Care Provider Fareed HERNANDEZ, Maximo [...] Dr. Aly Fragoso Attending Provider Felicia RIVERA, PAEleazar Aguiar Attending Provider Sergio GOLDMAN MD, Kentrell [place] Primary Care Provider Rogers HERNANDEZ, Gertrude Unavailable Rogers HERNANDEZ, Gertrude Unavailable Sergio GOLDMAN MD, Kentrell [place] Primary Care Provider KENTRELL DHALIWAL II Referring Unavailabl e SERGIO GOLDMAN, KENTRELL [place] Primary Care Unavailabl e SERGIO GOLDMAN, KENTRELL [place] Referring Unavailabl e SERGIO GOLDMAN, KENTRELL TOLEDO Primary Care Unavailabl e SERGIO GOLDMAN, KENTRELL [place] Referring Unavailabl e SERGIO GOLDMAN, KENTRELL [place] Primary Care Unavailabl e SERGIO GOLDMAN, KENTRELL [place] Attending Unavailabl e SELF Referring Unavailable SERGIO GOLDMAN, KENTRELL TRE Primary Care Unavailabl e DHALIWAL II, KENTRELL [place] Primary Care Unavailabl e DHALIWAL II, KENTRELL TRE Attending Unavailabl e DHALIWAL II, KENTRELL TRE Primary Care Unavailabl e DHALIWAL II, KENTRELL TRE Attending Unavailabl e DHALIWAL II, KENTRELL TRE Attending Unavailabl e DHALIWAL II, KENTRELL TRE Primary Care Unavailabl e DHALIWAL II, KENTRELL TRE Attending Unavailabl e DHALIWAL II, KENTRELL TRE Primary Care Unavailabl e DHALIWAL II, KENTRELL TRE Attending Unavailabl e DHALIWAL II, KENTRELL TRE Primary Care Unavailabl e DHALIWAL II, KENTRELL TRE Referring Unavailabl e DHALIWAL II, KENTRELL TRE Primary Care Unavailabl yelitza Dhaliwal MD, Dr. Kentrell Vyas Primary Care Provider [phone] Jay Williamson MD Emergency Provider Dr. Mike Queen DO Attending Provider [phone] Dr. Mike Queen DO Admit Provider Paulo Umanzor Attending Unavailable Sergio, Kentrell E Primary Care Unavailable Edmundo Peters Admitting Unavailable Edmundo Peters Consulting Unavailable Paulo Umanzor Consulting Unavailable Puma, Heriberto Consulting Unavailable Puma, Heriberto Attending Unavailable Donnie Blanchard Attending Unavailable Paulo Umanzor Referring Unavailable Sergio, Kentrell E Primary Care Unavailable Samson Gan Attending Unavailluis eduardo e Sergio, Kentrell E Primary Care Unavailable Edmundo Peters Consulting Unavailable Edmundo Gilliland Attending Unavailable Edmundo Peters Admitting Unavailable Paulo Umanzor Consulting Unavailable Puma, Heriberto Consulting Unavailable Sergio, Kentrell E Primary Care Unavailable Mike Queen Attending Unavailable Mike Queen Admitting Unavailable Edmundo Gilliland Consulting Unavailable Edmundo Gilliland Attending Unavailable Sergio, Kentrell E Primary Care Unavailable Mike Queen Attending Unavailable Edmundo Peters Attending Unavailable Edmundo Gilliland Referring Unavailable Allergies Allergy Classification Reported Allergen(s) Allergy Type Date of Onset Reaction(s) Facility (20 sources) cefdinir; Translations: [CEFDINIR] Drug Allergy 06-22-20 Diarrhea [facility] (20 sources) Codeine; Translations: [CODEINE] Drug Allergy 06-22-20 Diarrhea [facility] (20 sources) HMG-CoA reductase inhibitor; Translations: [FYKYJOG-FCI-NUY REDUCTASE INHIBITORS] Drug Allergy 06-22-20 Diarrhea [facility] (3 sources) HYDROmorphone Drug Allergy 06-22-20 Shortness of Breath [facility] (20 sources) Latex; Translations: [LATEX] Drug Allergy 06-22-20 Anaphylaxis [facility] (20 sources) levoFLOXacin; Translations: [LEVOFLOXACIN] Drug Allergy 06-22-20 Diarrhea [facility] (20 sources) predniSONE; Translations: [PREDNISONE] Drug Allergy 08-30-20 GI Upset [facility] (20 sources) Prochlorperazine; Translations: [PROCHLORPERAZINE] Drug Allergy 06-22-20 Myalgia [facility] (20 sources) Sulfonamides (Antibiotic); Translations: [SULFA (SULFONAMIDE ANTIBIOTICS)] Drug Allergy 06-15-20 Other: See Comments [facility] (20 sources) HMG-CoA reductase inhibitor Drug Allergy 06-22-20 Diarrhea, Intolerance [facility] (20 sources) ARIPiprazole; Translations: [ARIPIPRAZOLE] Drug Allergy 04-19-20 22 Other: See Comments [facility] (20 sources) Shellfish; Translations: [SHELLFISH CONTAINING PRODUCTS] Drug Allergy 11-30-19 13 Swelling [facility] (9 sources) Shellfish; Translations: [shellfish derived] Allergy to substance 12-12-19 23 Anaphylaxis [facility] (8 sources) Crjmkmj-Bol-Xei Reductase Inhibitor Propensity to adverse reactions 12-12-19 23 NEEDS FOLLOW-UP [facility] (20 sources) Propoxyphene; Translations: [PROPOXYPHENE] Drug Allergy 06-23-20 15 Unknown [facility] (1 source) cefdinir Drug Allergy 09-13-20 [facility] (1 source) Codeine Drug Allergy 09-13-20 [facility] (1 source) Latex Drug allergy (disorder) 09-13-20 [facility] (1 source) levoFLOXacin Drug Allergy 09-13-20 [facility] (1 source) Prochlorperazine Drug Allergy 09-13-20 24 [facility] (1 source) Xbsicwi-Veo-Wno Reductase Inhibitor Drug allergy (disorder) 09-13-20 24 [facility] Medications Current Medications Medication Drug Class(es) Dates Sig (Normalized) Sig (Original) [id number] 200 actuat albuterol 0.09 mg/actuat metered dose inhaler (20 sources) beta2-Adrenergic Agonist Start: 04-12-2025 Albuterol Sulfate 90 mcg/actuation HFA aerosol inhaler Active 2 NMA INHALATION EVERY 6 HOURS NEEDED as needed for wheezing April 12, 2025 12:00am Start: 06-16-2024 End: 03-05-2025 take 2 puff(s) by inhalation every six hours as needed for wheezing albuterol HFA (PROVENTIL HFA, VENTOLIN HFA) 90 mcg/actuation inhaler Inhale 2 puffs as instructed every 6 hours as needed for wheezing/shortness of breath. 18 g 03/05/2025 Active Start: [...] Active Start: 12-11-2022 take 1 tablet by maber twice daily Alprazolam (Xanax) 1 mg Tablet Active 1 mg PO TWICE A DAY December 11, 2022 12:00am anxiety Start: 11-14-2022 End: 02-08-2023 take 1 tablet [...] complication, without long-term current use of insulin ([facility]) , Anxiety and depression , Irritable bowel [...] Apply to affected ar ea twice daily. Aeypwmczcq-Vqulboni-Akqtw terol (20 sources) Corticosteroid, beta2-Adrenergic Agonist Start: 12-06-2023 Oqippoujct-Ennvgtax-I ormoterol (Breztri Aerosphere) 160-9-4.8 mcg/actuation HFA aerosol inhaler Active 2 NMA INHALATION TWICE A DAY as needed for breathing December 06, 2023 12:00am Start: 12-06-2023 Budesonide-Gly copyr-Formoterol (Breztri Aerosphere) 160-9-4.8 mcg/actuation HFA aerosol inhaler Active 2 INH INHALATION TWICE A DAY December 06, 2023 12:00am Start: 12-06-2023 Budesonide-Gly copyr-Formoterol [Budesonide 160 Mcg-Glycopyr 9 Mcg-Formot 4.8 Mcg/Actuation Hfa Inhaler] (Budesonide 160 Mcg-Glycopyr 9 Mcg-Formot 4.8 ) 160-9-4.8 mcg/actuation HFA aerosol inhaler Active 2 INH INHALATION TWICE A DAY December 06, 2023 12:00am Start: 07-24-2023 take 2 puff(s) by inhalation twice daily vberybkhfl-kvuvdtmm-ysbwepucfe (BREZTRI AEROSPHERE) 160-9-4.8 mcg/actuation HFA aerosol inhaler [...] tablet 1 05/09/2023 Active Start: 12-11-2022 take 1 tablet by amber th twice daily Bupropion Hcl 150 mg tablet extended release 24 hr Active 150 mg PO TWICE A DAY December 11, 2022 12:00am [facility] Start: 08-30-2021 End: 11-23-2022 take 2 tablets [...] 90 tablet 1 09/03/2024 01/01/2025 Discontinued Start: 12-06-2023 End: 09-03-2024 take 1 tablet by mouth [...] (20 sources) Serotonin Reuptake Inhibitor Start: End: 4 take 1 tablet by mouth once daily citalopram (CELEXA) 20 mg tablet Take 1 tablet by mouth once daily. 30 tablet 1 07/29/2024 Active clindamycin 300 mg oral capsule (8 sources) Lincosamide Antibacterial Start: End: 5 take 1 capsule by mouth every eight [...] on above: Take 1 capsule by mo [facility] three times daily for 7 days. cyclobenzaprine hydrochloride 10 mg oral tablet (20 sources) Muscle Relaxant Start: 11-24-19 23 take 1 tablet by mouth every eight hours as needed cyclobenzaprine (FLEXERIL) 10 mg tablet Take 1 tablet by mouth three times daily as needed. 30 tablet 11/23/2022 Active Comment on above: [facility] docusate sodium 100 mg oral capsule (20 sources) Start: 03-31-20 take 1 capsule by mouth twice daily Docusate Sodium 100 mg capsule Active 100 mg PO TWICE A DAY March 31, 2023 12:00am stool softner Start: 03-31-2023 Docusate Sodiu m Active MG PO March 31, 2023 12:00am Start: 08-02-2022 End: 03-18-2023 take 1 capsule by mouth twice daily Docusate Sodium 100 mg capsule Discontinued 100 mg PO TWICE A DAY December 11, 2022 12:00am March 18, 2023 4:23pm Start: 01-05-2022 End: 02-22-2022 take 1 capsule by mouth twice daily docusate sodium (COLACE) 100 mg capsule Take 1 capsule by mouth twice daily. 60 capsule 5 02/22/2022 Active Comment on above: Take 1 capsule by mo ut twice daily. enteric contrast (will be provided [...] take 1 tablet by mouth once daily Ezetimibe 10 mg Tablet Active 10 mg PO DAILY December 11, 2022 12:00am cholesterol Start: 06-06-2022 take 1 tablet by amber once daily ezetimibe (ZETIA) 10 mg tablet Take 1 tablet by mouth once daily. 30 tablet 3 06/06/2022 Active Start: 05-03-2022 End: 05-30-2022 take 1 tablet by mouth once daily ezetimibe (ZETIA) 10 mg tablet Take 1 tablet by mouth once daily. 30 tablet 3 05/03/2022 05/30/2022 Discontinued (Discontinued by Patient) Comment on above: Take 1 tablet by amber once daily. ferrous gluconate 27 mg oral [...] (14 sources) Anticholinergic, Corticosteroid, beta2-Adrenergic Agonist Start: take 1 puff(s) by inhalation once daily fluticasone-umeclid in-vilanter (TRELEGY ELLIPTA) 100-62.5-25 mcg inhalation powder Inhale 1 Puff as instructed once daily. 1 Each 09/26/2024 Active furosemide 40 mg oral tablet (20 sources) Loop Diuretic Start: End: take 1 tablet by mouth once daily furosemide (LASIX) 40 mg tablet Take 1 tablet by mouth once daily. 30 tablet 2 01/08/2025 04/08/2025 Active Start: 09-14-2024 take 10 mg by mouth once daily Furosemide 20 mg tablet Active 10 mg PO DAILY September 14, 2024 1:00am Start: 09-03-2024 End: 01-05-2025 take 1 tablet [...] take 1 tablet by mouth once daily Levothyroxine 50 mcg Tablet Active 50 ug PO DAILY December 11, 2022 12:00am thyroid Comment on above: Take 1 tablet by amber th once daily. nabumetone 750 mg oral tablet (20 sources) Nonsteroidal Anti-inflammatory Drug Start: 04-12-20 take 1 tablet by mouth every twelve hours as needed for pain Nabumetone 750 mg tablet Active 750 mg PO EVERY 12 HOURS NEEDED as needed for pain April 12, 2025 12:00am Start: 02-18-2025 take 1 tablet by amber th every twelve hours as needed nabumetone (RELAFEN) [...] 7 days. Take 1 capsule by mo ut twice daily for 10 days. Take 1 [...] capsule by mo ut once daily. ondansetron 4 mg oral tablet (20 sources) Serotonin-3 Receptor [...] every six hours as needed for nausea Ondansetron Hcl 4 mg Tablet Active 4 mg PO EVERY 6 HOURS as needed for Nausea 10 0 December 13, 2023 1:08pm Start: 08-02-2022 End: 06-16-2024 take 1 tablet [...] for nausea/vomiting. Take 1 tablet by amber every 8 hours as needed for nausea/vomiting for up to 10 days. Take 1 tablet by amber th every 6 hours as needed. polyethylene glycol 3350 83662 mg powder for oral solution (20 sources) Osmotic Laxative Start: Polyethylene Glycol 3350 (Miralax) 17 gram/dose powder Active 17 g PO TWICE A DAY December 06, 2023 12:00am bowels promethazine hydrochloride 25 mg oral tablet (20 [...] take 1 tablet by mouth twice daily as needed Ropinirole 0.5 mg tablet Active 0.5 mg PO TWICE A DAY as needed for restless legs December 06, 2023 12:00am Comment on above: Take 1 tablet by [...] on above: Take 1 capsule by mo [facility] twice daily. Take 1 capsule by mo [facility] three times a day. sodium fluoride 0.011 [...] th four times daily for 10 days. traMADol hydrochloride 50 mg oral tablet (20 sources) Opioid Agonist Start: 09-14-2024 take 1 tablet by mouth every six hours as needed for pain Tramadol 50 mg tablet Active 50 mg PO EVERY 6 HOURS NEEDED as needed for pain September 14, 2024 1:00am Start: 03-27-2023 End: 09-10-2024 take 1 tablet by mouth every six [...] amber th every 6 hours as needed. warfarin sodium 5 mg oral tablet (20 sources) Vitamin K Antagonist Start: 11-28-2023 End: 09-12-2024 take 1 tablet by mouth once daily Warfarin 5 mg tablet Active 5 mg PO DAILY December 06, 2023 12:00am blood thinner Comment on above: Take 1 tablet by amber th once daily. zolpidem tartrate 10 mg oral tablet (20 sources) gamma-Aminobutyric Acid-ergic Agonist Start: 12-11-2022 End: 06-29-2025 take 1 tablet by mouth at bedtime Zolpidem (Ambien) 10 mg Tablet Active 10 mg PO AT BEDTIME December 11, 2022 12:00am sleep Start: 10-31-2022 End: 01-29-2023 take 1 tablet [...] for up to 90 days. For Insomnia Completed/Discontinued Medications Medication Drug Class(es) Dates Sig [...] tablet (3 sources) Opioid Agonist Start: 11-24-2021 HYDROcodone-acetam inophen (NORCO) 5-325 mg per tablet apixaban 5 mg oral tablet (20 sources) Factor Xa Inhibitor Start: 11-09-2021 End: 12-06-2023 take 1 tablet by mouth twice daily Apixaban (Eliquis) 5 mg Tablet Discontinued 5 mg PO TWICE A DAY December 11, 2022 12:00am December 06, 2023 5:21pm Comment on above: Take 1 tablet by amber th twice daily. celecoxib 200 mg oral capsule (5 sources) Nonsteroidal Anti-inflammatory Drug Start: 01-05-2022 End: 01-13-2022 take 1 capsule by mouth every twelve hours as needed celecoxib (CELEBREX) 200 mg capsule Take 1 capsule by mouth twice daily as needed for pain. 28 capsule 0 01/05/2022 01/13/2022 Discontinued (Discontinued by Patient) Comment on above: Take 1 capsule by mo [facility] twice daily as needed for pain. dicyclomine hydrochloride 10 mg oral capsule (20 sources) Anticholinergic Start: 03-31-2023 End: 12-06-2023 Dicyclomine 10 mg capsule Discontinued mg March 31, 2023 12:00am December 06, 2023 5:22pm Start: 03-31-2023 End: 12-06-2023 Dicyclomine Discontinued MG March 31, 2023 12:00am December 06, 2023 5:22pm Start: 12-13-2022 End: 07-05-2023 take 1 tablet by mouth three times daily dicyclomine (BENTYL) 20 mg tablet Take 1 tablet by mouth three times a day. 90 tablet 1 07/05/2023 Active Start: 12-11-2022 End: 03-18-2023 take 2 capsules by mouth three times daily before mealtime Dicyclomine 10 mg capsule Discontinued 20 mg PO THREE TIMES DAILY BEFORE MEALS December 11, 2022 12:00am March 18, 2023 4:23pm Start: 12-11-2022 End: 03-18-2023 take 20 mg by mouth three times daily before mealtime Dicyclomine Discontinued 20 MG PO THREE TIMES DAILY BEFORE MEALS December 11, 2022 12:00am March 18, 2023 4:23pm Start: 02-16-2022 End: 02-23-2022 take 1 tablet by mouth three times daily dicyclomine (BENTYL) 20 mg tablet Indications: Parkinson's disease ([facility]) , Gastroesophageal reflux disease, unspecified whether esophagitis present , Type 2 diabetes mellitus without complication, without long-term current use of insulin ([facility]) , Anxiety and depression , Irritable bowel syndrome with both constipation and diarrhea Take 1 tablet by mouth three times daily for 7 days. 21 tablet 1 02/16/2022 02/23/2022 Active Comment on above: Take 1 tablet by amber three times daily for 7 days. Take 1 tablet by amber th three times daily. Take 1 tablet by amber th three times a day. escitalopram 20 mg oral tablet (20 sources) Serotonin Reuptake Inhibitor Start: End: 2 take 1 tablet by mouth once daily escitalopram oxalate (LEXAPRO) 20 mg tablet Take 1 tablet by mouth once daily. 90 tablet 2 05/24/2021 02/28/2022 Discontinued (Course of therapy completed) Comment on above: Take 1 tablet by amber th once daily. esomeprazole 20 mg delayed release oral tablet (20 sources) Proton Pump Inhibitor Start: 3 End: take 1 tablet by mouth once daily esomeprazole magnesium 20 mg TbEC Take 1 tablet by mouth once daily. 0 12/11/2022 04/18/2023 Discontinued (Course of therapy completed) Start: 12-11-2022 take 1 capsule by mo uth once daily Esomeprazole Magnesium 20 mg capsule,delayed release(DR/EC) Active 20 mg PO DAILY December 11, 2022 12:00am reflux Start: 08-02-2022 End: 11-23-2022 take 1 capsule [...] before meals. Take 1 tablet by amber once daily. ferrous sulfate 325 mg oral tablet (17 sources) Start: 02-20-20 End: 05-30-20 22 ferrous sulfate 325 mg (65 mg iron) [...] (1 source) Nonsteroidal Anti-inflammatory Drug Start: 08-30-20 24 End: 12-19-20 24 take 1 tablet by mouth three times [...] on above: Take 1 capsule by mo [facility] twice daily with meals. mirtazapine 30 mg [...] Take 1 tablet by amber once daily. sertraline 100 mg oral tablet [...] BY MO UTH THREE TIMES DAILY NEEDED valACYclovir 1000 mg oral tablet (2 sources) [...] amber three times daily for 7 days. Problems Active Problems Problem Classification Problem Date Documented Da te Episodic/Chronic Abdominal pain (20 sources) Abdominal pain; Translations: [Unspecified abdominal pain] Onset: 2 Episodic Acute and unspecified renal failure (5 sources) Injury of kidney; Translations: [Acute kidney failure, unspecified] 04-01-2023 Episodic Allergic reactions (1 source) Inflammatory dermatosis; Translations: [Dermatitis, unspecified] 04-18-2023 Episodic Anxiety disorders (20 sources) Generalized anxiety disorder; Translations: [Generalized anxiety disorder] Onset: 0 06-22-2020 Chronic Biliary tract disease (2 sources) Obstruction of common bile duct; Translations: [Obstruction of bile duct] Onset: 5 09-14-2024 Chronic Cardiac dysrhythmias (4 sources) Palpitations; Translations: [...] 08-18-2020 Chronic Diseases of white blood cells (2 sources) Leukocytosis; Translations: [Elevated white blood cell count, unspecified] Onset: 5 09-25-2024 Chronic Esophageal disorders (20 sources) Gastroesophageal reflux disease without esophagitis; Translations: [Gastro-esophageal reflux disease without esophagitis] Onset: 0 Resolved: 2 06-22-2020 Chronic Essential hypertension (10 sources) Hypertensive disorder; Translations: [Essential (primary) hypertension] Onset: 5 12-11-2022 Chronic Fluid and electrolyte disorders (5 sources) Lactic acidosis; Translations: [Acute lactic acidosis] 04-01-2023 Episodic Intestinal obstruction without hernia (20 sources) Small bowel obstruction; Translations: [Unspecified intestinal obstruction, unspecified as to partial versus complete obstruction] Onset: 3 Resolved: 3 Episodic Malaise and fatigue (10 sources) Asthenia; Translations: [Weakness] Onset: 5 Episodic Miscellaneous mental health disorders (20 sources) Chronic insomnia; Translations: [Psychophysiologic insomnia] Onset: 0 06-22-2020 Chronic Mood disorders (20 sources) Recurrent major depressive episodes, mild ; Translations: [Major depressive disorder, recurrent, mild] Onset: 0 06-22-2020 Chronic Mood disorders (1 source) Mood disorders; Translations: [Anxiety and depression] Onset: 0 Nausea and vomiting (20 sources) Nausea and vomiting; Translations: [Nausea with vomiting, unspecified] Onset: 4 Episodic Nutritional deficiencies (20 sources) Deficiency of macronutrients; Translations: [Unspecified severe protein-calorie malnutrition] Onset: 3 04-02-2023 Chronic Nutritional deficiencies (2 sources) Cobalamin deficiency; Translations: [Deficiency of other specified B group vitamins] Onset: 5 02-26-2025 Episodic Other aftercare (8 sources) Long-term current use of anticoagulant; Translations: [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 anticoagulants] 12-11-2022 Episodic Other circulatory disease (2 sources) Elevated blood-pressure reading without diagnosis of hypertension; Translations: [Elevated blood-pressure reading, without diagnosis of hypertension] 09-21-2024 Episodic Other connective tissue disease (2 sources) Muscle pain; Translations: [Myalgia, unspecified site] Episodic Other connective tissue disease (1 source) Bilateral hand weakness; Translations: [Other symptoms and signs involving the musculoskeletal system] 08-09-2024 Episodic Other ear and sense organ disorders [...] of digestive system] Episodic Other gastrointestinal disorders (6 sources) Constipation; Translations: [Constipation, unspecified] 03-16-2023 Episodic Other gastrointestinal disorders (2 sources) Constipation, unspecified; Translations: [Constipation, unspecified] 03-18-2023 Episodic Other gastrointestinal disorders (2 sources) Diarrhea; Translations: [Diarrhea, unspecified] 12-06-2023 Episodic Other gastrointestinal disorders (1 source) Acute constipation; Translations: [Constipation, unspecified] 08-09-2024 Episodic Other lower respiratory disease (3 sources) [...] of unspecified proximal lower extremity] 09-09-2024 Chronic Phlebitis; thrombophlebitis and thromboembolism (20 sources) H/O: Deep vein thrombosis; Translations: [Personal history of other venous thrombosis and embolism] Onset: 0 06-22-2020 Episodic Residual codes; unclassified (2 sources) Feeding problem; [...] Prediabetes; Translations: [Prediabetes] Onset: 06-22-2020 06-22-2020 Episodic Parkinson`s disease (20 sources) Parkinson's disease; Translations: [Parkinson's disease] Onset: 06-22-2020 Resolved: 04-17-2022 06-22-2020 Chronic Residual codes; unclassified (1 source) Illness, unspecified; Translations: [Illness, unspecified] Onset: 08-27-2024 Episodic Results Test Name Value Interpretation Reference Range Facility Abdomen/Pelvis W IV Cont ONL Yon 04-12-2025 Abdomen/Pelvis W IV Cont ONLY [facility] Imaging Services [address] [place], [place] [id number] Abdomen/Pelvis W IV Cont ONLY MR#: [id number] Acct: [id number] Name: ADINA ESCOBAR Rep #: [id number] : [id number] F [id number] From: Otis Luna MD PCP: Dr. Kentrell Dhaliwal MD Status: REG ER Study: Abdomen/Pelvis W IV Cont ONLY Date of Exam: Exam# [id number] Ordering Dr: Jay Williamson MD PROCEDURE: ABDOMEN/PELVIS [...] dilatation. No significant obstruction proximally. Reading Location: [facility] CC: Dr. Jay Williamson MD; Dr. Kentrell Dhaliwal MD Migrant Leader: Signed Normal [facility] Absolute lymphocyte countOrd ered By: Jay Williamson on 04-12-2025 Lymphocytes Auto (Unsp spec) [#/Vol] 2.88 10*3/uL 0.83-4.51 [facility] Absolute neutrophil countOrd ered By: Jay Williamson on 04-12-2025 Neutrophils (Bld) [#/Vol] 5.0 10*3/uL 2.0-7.7 [facility] Anion gap in Serum or Plasma Ordered By: Jay Williamson on 04-12-2025 Anion gap [Moles/Vol] 13 mmol/L 5- [facility] Automated lymphocyte count a s percentage of total leukocytesOrdered By: Jay Williamson on 04-12-2025 Lymphocytes/100 WBC Auto (Unsp spec) 33.1 % 19- [facility] BUN/creatinine ratioOrdered By: Jay Williamson on 04-12-2025 Urea nitrogen/Creatinine [Mass ratio] 11.2 mg/mg 10- [facility] Basophil percentageOrdered B y: Jay Williamson on 04-12-2025 Basophils/100 WBC (Bld) 0.6 % 0-1 [facility] Bilirubin, totalOrdered By: Jay Williamson on 04-12-2025 Bilirubin [Mass/Vol] 0.76 mg/dL 0.00-1.30 [facility] CBC W/Diff, Automatedon 03-18 Absolute Lymph 2.88 X10 3/uL Normal 0.83-4.51 [facility] Comment on above: Performed By: #### L 501.2450, L100.0100, L500.4050 ####[facility] [address] [place], [address] Absolute Neut 5.0 X10 3/uL Normal 2.0-7.7 [facility] Comment on above: Performed By: #### L 501.2450, L100.0100, L500.4050 ####[facility] [address] [place], [address] Basophils/100 WBC (Bld) 0.6 % Normal 0-1 [facility] Comment on above: Performed By: #### L 501.2450, L100.0100, L500.4050 ####[facility] [address] [place], [address] Eosinophils/100 WBC (Bld) 0.9 % Normal 0-5 [facility] Comment on above: Performed By: #### L 501.2450, L100.0100, L500.4050 ####[facility] [address] [place], [address] Erythrocyte distribution width (RBC) [Ratio] 14.0 % Normal 11.6-14.6 [facility] Comment on above: Performed By: #### L 501.2450, L100.0100, L500.4050 ####[facility] [address] [place], [address] Hematocrit (Bld) [Volume fraction] 33.5 % Low 37-47 [facility] Comment on above: Performed By: #### L 501.2450, L100.0100, L500.4050 ####[facility] [address] [place], [address] Hemoglobin (Bld) [Mass/Vol] 11.4 g/dL Low 12.0-15.0 [facility] Comment on above: Performed By: #### L 501.2450, L100.0100, L500.4050 ####[facility] [address] [place], [address] IG% 0.600 Normal 0.0-0.9 [facility] Comment on above: Result Comment: IG% - Immature Granulocytes (promyelocytes, myelocytes and metamyelocytes) > 1% indicates that a LEFT SHIFT is Present. Performed By: #### L 501.2450, L100.0100, L500.4050 ####[facility] [address] [place], [address] Lymphocytes/100 WBC (Bld) 33.1 % Normal 19-41 [facility] Comment on above: Performed By: #### L 501.2450, L100.0100, L500.4050 ####[facility] [address] [place], [address] MCH (RBC) [Entitic mass] 30.1 pg Normal 27.0-32.0 [facility] Comment on above: Performed By: #### L 501.2450, L100.0100, L500.4050 ####[facility] [address] [place], [address] MCHC (RBC) [Mass/Vol] 34.0 g/dL Normal 32-36 [facility] Comment on above: Performed By: #### L 501.2450, L100.0100, L500.4050 ####[facility] [address] [place], [address] MCV (RBC) [Entitic vol] 88.4 fL Normal 81-99 [facility] Comment on above: Performed By: #### L 501.2450, L100.0100, L500.4050 ####[facility] [address] [place], [address] Monocytes/100 WBC (Bld) 7.2 % Normal 0-10 [facility] Comment on above: Performed By: #### L 501.2450, L100.0100, L500.4050 ####[facility] [address] [place], [address] Neutrophils/100 WBC (Bld) 57.6 % Normal 47-70 [facility] Comment on above: Performed By: #### L 501.2450, L100.0100, L500.4050 ####[facility] [address] [place], [address] Nucleated RBC (Bld) [#/Vol] 0 10*3/uL Normal 0-5 [facility] Comment on above: Performed By: #### L 501.2450, L100.0100, L500.4050 ####[facility] [address] [place], [address] Platelet mean volume (Bld) [Entitic vol] 9.7 fL Normal 6.2-12.0 [facility] Comment on above: Performed By: #### L 501.2450, L100.0100, L500.4050 ####[facility] [address] [place], [address] Platelets (Bld) [#/Vol] 287 10*3/uL Normal 150-450 [facility] Comment on above: Performed By: #### L 501.2450, L100.0100, L500.4050 ####[facility] [address] [place], [address] RBC (Bld) [#/Vol] 3.79 10*6/uL Low 4.2-5.4 [facility] Comment on above: Performed By: #### L 501.2450, L100.0100, L500.4050 ####[facility] [address] [place], [address] RDW SD 45.3 fl High 35.1-43.9 [facility] Comment on above: Performed By: #### L 501.2450, L100.0100, L500.4050 ####[facility] [address] [place], [address] WBC (Bld) [#/Vol] 8.7 10*3/uL Normal 4.4-11.0 [facility] Comment on above: Performed By: #### L 501.2450, L100.0100, L500.4050 ####[facility] [address] [place], [address] Carbon dioxide, total [Moles /volume] in Central venous bloodOrdered By: Jay Williamson on 04-12-2025 CO2 [Moles/Vol] 20.7 mmol/L Low 21.0-32.0 [facility] Chloride assayOrdered By: Graham Williamson on 04-12-2025 Chloride [Moles/Vol] 105 mmol/L 98-108 [facility] Comprehensive Metabolic Prof ilon 04-12-2025 Albumin [Mass/Vol] 4.1 g/dL Normal 3.4-4.8 [facility] Comment on above: Performed By: #### L 501.2450, L100.0100, L500.4050 ####[facility] [address] [place], [address] Albumin/Globulin [Mass ratio] 1.4 {ratio} Normal 0.9-2.4 [facility] Comment on above: Performed By: #### L 501.2450, L100.0100, L500.4050 ####[facility] [address] [place], [address] ALK PHOS 78 U/L Normal 35-104 [facility] Comment on above: Performed By: #### L 501.2450, L100.0100, L500.4050 ####[facility] [address] [place], [address] ALT [Catalytic activity/Vol] 23 U/L Normal <=34 [facility] Comment on above: Performed By: #### L 501.2450, L100.0100, L500.4050 ####[facility] [address] [place], [address] AST [Catalytic activity/Vol] 37 U/L High <=31 [facility] Comment on above: Performed By: #### L 501.2450, L100.0100, L500.4050 ####[facility] [address] [place], [address] Bilirubin [Mass/Vol] 0.76 mg/dL Normal 0.00-1.30 [facility] Comment on above: Performed By: #### L 501.2450, L100.0100, L500.4050 ####[facility] [address] [place], [address] BUN/CRE 11.2 RATIO Normal 10-20 [facility] Comment on above: Performed By: #### L 501.2450, L100.0100, L500.4050 ####[facility] [address] [place], [address] Calcium [Mass/Vol] 9.4 mg/dL Normal 7.6-11.0 [facility] Comment on above: Performed By: #### L 501.2450, L100.0100, L500.4050 ####[facility] [address] [place], [address] Chloride [Moles/Vol] 105 mmol/L Normal 98-108 [facility] Comment on above: Performed By: #### L 501.2450, L100.0100, L500.4050 ####[facility] [address] [place], [address] CO2 [Moles/Vol] 20.7 mmol/L Low 21.0-32.0 [facility] Comment on above: Performed By: #### L 501.2450, L100.0100, L500.4050 ####[facility] [address] [place], [address] Creatinine [Mass/Vol] 1.30 mg/dL High 0.70-1.20 [facility] Comment on above: Performed By: #### L 501.2450, L100.0100, L500.4050 ####[facility] [address] [place], [address] ECRCL 34.34 ml/min Low 50-250 [facility] Comment on above: Performed By: #### L 501.2450, L100.0100, L500.4050 ####[facility] [address] [place], [address] GAP 13 Normal 5-15 [facility] Comment on above: Performed By: #### L 501.2450, L100.0100, L500.4050 ####[facility] [address] [place], [address] GFR/1.73 sq M.predicted among non-blacks MDRD (S/P/Bld) [Vol rate/Area] 43 mL/min/{1.73_m2} Low >60 [facility] Comment on above: Result Comment: mL/m in/1.73m2 CKD-EPI Creatinine Equation (2020) Performed By: #### L 501.2450, L100.0100, L500.4050 ####[facility] [address] [place], [address] Globulin (S) [Mass/Vol] 2.8 g/dL Normal 2.2-4.2 [facility] Comment on above: Performed By: #### L 501.2450, L100.0100, L500.4050 ####[facility] [address] [place], [address] Glucose [Mass/Vol] 89 mg/dL Normal 70-99 [facility] Comment on above: Performed By: #### L 501.2450, L100.0100, L500.4050 ####[facility] [address] [place], [address] Potassium [Moles/Vol] 4.1 mmol/L Normal 3.3-5.1 [facility] Comment on above: Performed By: #### L 501.2450, L100.0100, L500.4050 ####[facility] [address] [place], [address] Sodium [Moles/Vol] 139 mmol/L Normal 133-145 [facility] Comment on above: Performed By: #### L 501.2450, L100.0100, L500.4050 ####[facility] [address] [place], [address] T PROT 6.9 g/dL Normal 5.9-8.4 [facility] Comment on above: Performed By: #### L 501.2450, L100.0100, L500.4050 ####[facility] [address] [place], [address] Urea nitrogen [Mass/Vol] 15 mg/dL Normal 4-19 [facility] Comment on above: Performed By: #### L 501.2450, L100.0100, L500.4050 ####[facility] [address] [place], [address] Eosinophil percentageOrdered By: Jay Williamson on 04-12-2025 Eosinophils/100 WBC (Bld) 0.9 % 0-5 [facility] Erythrocyte distribution wid th ratioOrdered By: Jay Clay on 04-12-2025 Erythrocyte distribution width (RBC) [Ratio] 14.0 % 11.6-14.6 [facility] Erythrocyte distribution wid th standard deviationOrdered By: Jay Williamson on 04-12-2025 Erythrocyte distribution width (RBC) [Ratio] 45.3 fl High 35.1-43.9 [facility] Glomerular filtration rate ( GFR) estimation/1.73 sq m using serum, plasma, or whole bOrdered By: Jay Williamson on 04-12-2025 GFR/1.73 sq M.predicted among non-blacks MDRD (S/P/Bld) [Vol rate/Area] 43 mL/min/{1.73_m2} Low >60 [facility] Comment on above: mL/min/1.73m2 CKD-EP I Creatinine Equation (2020) H AND P Exam - [facility] 04-12-2025 H&P Exam - Hospitalist [facility] Medical Records Department [address] [place] [address] H P Exam - Hospitalist 04/12/25 1949 MR#: [id number] Acct: [id number] Name: ADINA ESCOBAR Rep #: [id number] : 1950 74 From: Mike Queen DO [...] the hospitalist service was contacted for admission. FOR[facility]LY [facility], [facility] Medical History Irritable bowel Scarlet [...] (From Levaquin) AdvReac Vomiting Verified 09/13/24 20:52 Onntbrn-WKY-HlR Reductase AdvReac NEEDS Verified 09/13/24 20:52 Inhibitor [...] Pulse R (more content not included)... Normal [facility] Hematocrit Auto (Bld) [Volum e fraction]Ordered By: Jay Williamson on 04-12-2025 Hematocrit (Bld) [Volume fraction] 33.5 % Low 37-47 [facility] Hemoglobin measurementOrdere d By: Jay Williamson on 04-12-2025 Hemoglobin (Bld) [Mass/Vol] 11.4 g/dL Low 12.0-15.0 [facility] Immature granulocytes/100 WB C Auto (Bld)Ordered By: Jay Williamson on 04-12-2025 Immature granulocytes/100 WBC (Bld) 0.600 % 0.0-0.9 [facility] Comment on above: IG% - Immature Granu locytes (promyelocytes, myelocytes and metamyelocytes) > 1% indicates that a LEFT SHIFT is Present. Laboratory - Chemistry and C hemistry - challengeOrdered By: Jay Williamson on 04-12-2025 AST [Catalytic activity/Vol] 37 U/L High <32 [facility] Lipaseon 04-12-2025 Lipase [Catalytic activity/Vol] 31 U/L Normal 13-75 [facility] Comment on above: Result Comment: Michael arreola note: LIPASE revised reference range effective 22. New Lipase methodology. Expected to produce lower values than the previous assay method. NEW Reference Range: 13 - 75 U/L Performed By: #### L 501.2450, L100.0100, L500.4050 ####[facility] [address] [place], [place], [address] Lipase measurementOrdered By : Jay Williamson on 04-12-2025 Lipase [Catalytic activity/Vol] 31 U/L 13-75 [facility] Comment on above: Please note:LIPASE r evised reference range effective 22. New Lipase methodology. Expected to produce lower values than the previous assay method. NEW Reference Range: 13 - 75 U/L MCV (mean corpuscular volume ) determinationOrdered By: Jay Williamson on 04-12-2025 MCV (RBC) [Entitic vol] 88.4 fL 81-99 [facility] Mean corpuscular hemoglobin (MCH) determinationOrdered By: Jay Williamson on 04-12-2025 MCH (RBC) [Entitic mass] 30.1 pg 27.0-32.0 [facility] Mean corpuscular hemoglobin concentration (MCHC) determinationOrdered By: Jay Williamson on 04-12-2025 MCHC (RBC) [Mass/Vol] 34.0 g/dL 32-36 [facility] Mean platelet volume determi nationOrdered By: Jay Williamson on 04-12-2025 Platelet mean volume (Bld) [Entitic vol] 9.7 fL 6.2-12.0 [facility] Monocyte percentageOrdered B y: Jay Williamson on 04-12-2025 Monocytes/100 WBC (Bld) 7.2 % 0-10 [facility] Neutrophil percentageOrdered By: Jay Williamson on 04-12-2025 Neutrophils/100 WBC (Bld) 57.6 % 47-70 [facility] Nucleated red blood cell per centageOrdered By: Jay Williamson on 04-12-2025 Nucleated RBC/100 WBC (Bld) [Ratio] 0 % 0-5 [facility] Platelet countOrdered By: Graham Williamson on 04-12-2025 Platelets (Bld) [#/Vol] 287 10*3/uL 150-450 [facility] Potassium measurement (mass/ volume)Ordered By: Jay Williamson on 04-12-2025 Potassium (Unsp spec) [Mass/Vol] 4.1 mmol/L 3.3-5.1 [facility] RBC Auto (Bld) [#/Vol]Ordere d By: Jay Williamson on 04-12-2025 RBC (Bld) [#/Vol] 3.79 10*6/uL Low 4.2-5.4 [facility] Serum creatinine measurement (mass/volume)Ordered By: Jay Williamson on 04-12-2025 Creatinine [Mass/Vol] 1.30 mg/dL High 0.70-1.20 [facility] Serum globulin measurementOr dered By: Jay Williamson on 04-12-2025 Globulin (S) [Mass/Vol] 2.8 g/dL 2.2-4.2 [facility] Serum glucose measurement (m ass/volume)Ordered By: Jay Williamson on 04-12-2025 Glucose [Mass/Vol] 89 mg/dL 70-99 [facility] Serum or plasma alanine malik otransferase (ALT) measurementOrdered By: Jay Williamson on 04-12-2025 ALT [Catalytic activity/Vol] 23 U/L <35 [facility] Serum or plasma albumin franck urement (mass/volume)Ordered By: Jay Williamson on 04-12-2025 Albumin [Mass/Vol] 4.1 g/dL 3.4-4.8 [facility] Serum or plasma albumin/glob ulin mass ratioOrdered By: Jay Williamson on 04-12-2025 Albumin/Globulin [Mass ratio] 1.4 {ratio} 0.9-2.4 [facility] Serum or plasma alkaline adwoa sphatase measurementOrdered By: Jay Williamson on 04-12-2025 ALP [Catalytic activity/Vol] 78 U/L 35-104 [facility] Serum or plasma calcium franck urement (mass/volume)Ordered By: Jay Williamson on 04-12-2025 Calcium [Mass/Vol] 9.4 mg/dL 7.6-11.0 [facility] Serum or plasma urea nitroge n measurement (mass/volume)Ordered By: Jay Williamson on 04-12-2025 Urea nitrogen [Mass/Vol] 15 mg/dL 4-19 [facility] Sodium levelOrdered By: Jay Williamson on 04-12-2025 Sodium [Moles/Vol] 139 mmol/L 133-145 [facility] Total proteinOrdered By: Denice Williamson on 04-12-2025 Protein [Mass/Vol] 6.9 g/dL 5.9-8.4 [facility] White blood cell (WBC) count Ordered By: Jay Williamson on 04-12-2025 WBC (Bld) [#/Vol] 8.7 10*3/uL 4.4-11.0 [facility] -- ADINA ESCOBAR I ([id number]) 1950 F Date Time Provider Department 03/31/25 KENTRELL DHALIWAL II [facility] During your visit today, we recorded the [...] GI Upset PROPOXYPHENE 06/23/2015 16 - Unknown [id number] REDUCTASE INHIBIT*06/22/2020 6 - Diarrhea 5 - [...] HUSAM GRANT on 03/31/25 [facility] ECHOon 03-30-2025 Echocardiography Echocardiography Rep ort: Transthoracic Echo [facility] Date of service: 03/30/2025 2:58:26 PM 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 Medical Image : [id number] Normal [facility] CAROTID ARTERIES [facility] 03-30-2025 US CAROTID ARTERIES [facility] Non-Invasive Vascular Laboratory [facility] Carotid Duplex Bilateral/Complete Date of service/time: 03/30/2025 [...] interpretation criteria are used as recommended by Intersocietal Accreditation Commission. RIGHT SIDE Common carotid artery: [...] physician: Silviano Edmondson MD, RPVI Final CC [employer] Medical Image : [id number] See Link below for Image Normal [facility] CNOVon 03-05-2025 CNOV Office Visit ([facility] [place] -- ADINA ESCOBAR I ([id number]) 1950 F Date Time Provider Department 03/05/25 1:00 PM KENTRELL DHALIWAL II [facility] During your visit today, we recorded the following information about you: Temperature Pulse Respiration Blood pressure 97.5 degrees 72/minute 14/minute 122/70 Weight Height 65.3 kg 1.549 m Kentrell Dhaliwal II, MD 03/15/2025 10:37 PM Signed Kentrell Dhaliwal II, [place] [address] SUBJECTIVE Adina Escobar is a 74 year [...] Prednisone GI Upset - Propoxyphene Unknown - Aubqbct-Rrt-Cly Red* Diarrhea, Intolerance - Sulfa (Sulfonamide * Other: See Comments Leg pain - Shellfish Containin* Swelling Current Outpatient Medications Medication Sig - busPIRone (BUSPAR) 15 mg tablet Take 1 tablet by mouth two times a day. - elmerume (more content not included)... [facility] 03-02-2025 [facility] Nurse Triage (FPUPDV ) -- ADINA ESCOBAR I ([id number]) 1950 F Date Time Provider Department 03/02/25 [...] was last week. Please advise Thank you [phone] Sent to our [facility] nurse pool Pearl Platt RN 03/02/2025 9:20 [...] No Protocols used: Heart Rate and Heartbeat Chgnersuy-ETUGO-BB Allergies As of Date: 03/02/2025 Noted Allergy Reaction LATEX 06/22/2020 10 - Anaphylaxis ABILIFY (ARIPIPRAZOLE) 04/19/2022 14 - Other: See Comments Comments: Muscles couldn't get up CODEINE 06/22/2020 6 - Diarrhea COMPAZINE (PROCHLORPERAZINE) 06/22/2020 17 - Myalgia LEVAQUIN (LEVOFLOXACIN) 06/22/2020 6 - Diarrhea OMNICEF (CEFDINIR) 06/22/2020 6 - Diarrhea PREDNISONE 08/30/2021 8 - GI Upset PROPOXYPHENE 06/23/2015 16 - Unknown [id number] REDUCTASE INHIBIT*06/22/2020 6 - Diarrhea 5 - [...] 1 tablet by (more content not included)... [facility] AD[facility] ESC[facility] I ([id number]) 1950 F Date Time Provider Department 03/02/25 [facility]ENTRELL [facility]WAL II [facility] During your visit today, we recorded the [...] on her xanax. Please advise Thank you [phone] (home) [phone] (cell) Patient last appointment: 09/26/[address] [...] GI Upset PROPOXYPHENE 06/23/2015 16 - Unknown RZDYEAK-SIR-UWR REDUCTASE INHIBIT*06/22/2020 6 - Diarrhea 5 - [...] ABIGAIL RODRIGUEZ on 03/02/25 [facility] 25(OH)D3 [facility] 25-hydroxyvitamin D3 [Mass/Vol] 31.0 ng/mL Normal 31.0-80.0 [facility] Comment on above: Order Comment: Speci men Type: BLOOD SPECIMEN Ordering Facility: [facility] Address: [address] [place] [address] Result Comment: Clas sification of 25 [place] Vitamin D status: Deficiency/Insufficiency: < or = 30 ng/ml. Sufficiency/Optimal Levels: 31-80 ng/mL Toxicity: > 100 ng/mL. Test performed by chemiluminescent immunoassay. Performed By: #### 1 989-3 #### [facility] CLIA [id number] [address] [place], [place] [address] [place] Basic metabolic 2000 panelOr dered By: Radha Silva on 02-26-2025 Anion gap [Moles/Vol] 14 mmol/L 8 - 15 mmol/L [facility] Calcium [Mass/Vol] 9.3 mg/dL 8.5 - 10. 2 mg/dL [facility] Chloride [Moles/Vol] 103 mmol/L 98 - 10 7 mmol/L [facility] CO2 [Moles/Vol] 20 mmol/L Low 22 - 30 mmol/L [facility] Creatinine [Mass/Vol] 1.19 mg/dL High 0.58 - 0.96 mg/dL [facility] GFR/1.73 sq M.predicted among non-blacks MDRD (S/P/Bld) [Vol rate/Area] 48 mL/min/{1.73_m2} Low - PINF [facility] Comment on above: Estimated Glomerular Filtration Rate [...] 100 mg/dL High 74 - 99 mg/dL [facility] Comment on above: The [place] Diabete s Association (ADA) provides guidance for [...] Standards of Medical Care in Diabetes 2016, [place] [employer]. Diabetes Care. 2016.39(Suppl 1). Interpretation and review of laboratory results Abnormal [facility] Potassium [Moles/Vol] 4.3 mmol/L 3.7 - 5.1 mmol/L [facility] Sodium [Moles/Vol] 137 mmol/L 136 - 144 mmol/L [facility] Urea nitrogen [Mass/Vol] 19 mg/dL 7 - 21 mg/dL [facility] Basic metabolic 2000 panelon 02-26-2025 Anion gap [Moles/Vol] 14 mmol/L Normal 8-15 [facility] Comment on above: Order Comment: Specjovan talley Type: BLOOD SPECIMEN Ordering Facility: [facility] Address: [address] [place] [address] Performed By: #### 2 4321-2 #### [facility] CLIA [id number] [address] [place] [address] [place] Calcium [Mass/Vol] 9.3 mg/dL Normal 8.5-10.2 [facility] Comment on above: Order Comment: Speci men Type: BLOOD SPECIMEN Ordering Facility: [facility] Address: [address] [place] [address] Performed By: #### 2 4321-2 #### [facility] CLIA [id number] [address] [place] [address] [place] Chloride [Moles/Vol] 103 mmol/L Normal 98-107 [facility] Comment on above: Order Comment: Speci men Type: BLOOD SPECIMEN Ordering Facility: [facility] Address: [address] [place] [address] Performed By: #### 2 4321-2 #### [facility] CLIA [id number] [address] [place] [address] [place] CO2 [Moles/Vol] 20 mmol/L Low 22-30 [facility] Comment on above: Order Comment: Speci men Type: BLOOD SPECIMEN Ordering Facility: [facility] Address: [address] [place] [address] Performed By: #### 2 4321-2 #### [facility] CLIA [id number] [address] [place] [address] [place] Creatinine [Mass/Vol] 1.19 mg/dL High 0.58-0.96 [facility] Comment on above: Order Comment: Speci men Type: BLOOD SPECIMEN Ordering Facility: [facility] Address: [address] [place] [address] Performed By: #### 2 4321-2 #### [facility] CLIA [id number] [address] [place] [address] OF [facility] Creatinine and Glomerular filtration rate.predicted panel (S/P/Bld) 48 mL/min/1.73m??? Low >=60 [facility] Comment on above: Order Comment: Speci men Type: BLOOD SPECIMEN Ordering Facility[facility] Address: [address] [place] [address] Result Comment: [place] mated Glomerular Filtration Rate [...] GFR. Performed By: #### 2 4321-2 #### [facility] [id number] [address] [place] [address] [place] Glucose [Mass/Vol] 100 mg/dL High 74-99 [facility] Comment on above: Order Comment: Sam talley Type: BLOOD SPECIMEN Ordering Facility: [facility] Address: [address] [place], [place] [address] Result Comment: The [place] Diabetes Association (ADA) provides guidance for cutoff [...] Standards of Medical Care in Diabetes 2016, [place] [employer]. Diabetes Care. 2016.39(Suppl 1). Performed By: #### 2 4321-2 #### [facility] [id number] [address] [place] [address] [place] Potassium [Moles/Vol] 4.3 mmol/L Normal 3.7-5.1 [facility] Comment on above: Order Comment: Sam talley Type: BLOOD SPECIMEN Ordering Facility: [facility] Address: [address] [place] [address] Performed By: #### 2 4321-2 #### [facility] [id number] [address] [place] [address] [place] Sodium [Moles/Vol] 137 mmol/L Normal 136-144 [facility] Comment on above: Order Comment: Sam talley Type: BLOOD SPECIMEN Ordering Facility: [facility] Address: [address] [place] [address] Performed By: #### 2 4321-2 #### [facility] CLIA [id number] [address] Urea nitrogen [Mass/Vol] 19 mg/dL Normal 7-21 [facility] Comment on above: Order Comment: Speci men Type: BLOOD SPECIMEN Ordering Facility: [facility] Address: [address] [place] [address] Performed By: #### 2 4321-2 #### [facility] CLIA [id number] [address] [place], [place] [address] [place] [address] [place] CBC panel Auto (Bld)on 02-26 Erythrocyte distribution width (RBC) [Ratio] 14 % 11.5 - 15.0 % [facility] Hematocrit (Bld) [Volume fraction] 36.9 % 36.0 - 46.0 % [facility] Hemoglobin (Bld) [Mass/Vol] 12.4 g/dL 11.5 - 15.5 g/dL [facility] Interpretation and review of laboratory results Normal [facility] MCH (RBC) [Entitic mass] 29.5 pg 26.0 - 34.0 pg [facility] MCHC (RBC) [Mass/Vol] 33.6 g/dL 30.5 - 36.0 g/dL [facility] MCV (RBC) [Entitic vol] 87.6 fL 80.0 - 100.0 fL [facility] Nucleated RBC (Bld) [#/Vol] NINF [facility] Platelet mean volume (Bld) [Entitic vol] 10.5 fL 9.0 - 12.7 fL [facility] Platelets (Bld) [#/Vol] 193 10*3/uL [facility] RBC (Bld) [#/Vol] 4.21 10*6/uL 3.90 - 5.2 0 m/uL [facility] WBC (Bld) [#/Vol] 6.89 10*3/uL [facility] Erythrocyte distribution width (RBC) [Ratio] 14.0 % Normal 11.5-15.0 [facility] Comment on above: Order Comment: Speci men Type: BLOOD SPECIMEN Ordering Facility[facility] Address: [address] [place] [address] Performed By: #### 5 8410-2 #### [facility] CLIA [id number] [address] [place] [address] [place] Hematocrit (Bld) [Volume fraction] 36.9 % Normal 36.0-46.0 [facility] Comment on above: Order Comment: Speci men Type: BLOOD SPECIMEN Ordering Facility[facility] Address: [address] [place] [address] Performed By: #### 5 8410-2 #### [facility] CLIA [id number] [address] [place] [address] [place] Hemoglobin (Bld) [Mass/Vol] 12.4 g/dL Normal 11.5-15.5 [facility] Comment on above: Order Comment: Speci men Type: BLOOD SPECIMEN Ordering Facility[facility] Address: [address] [place] [address] Performed By: #### 5 8410-2 #### [facility] [id number] [address] [place] [address] [place] MCH (RBC) [Entitic mass] 29.5 pg Normal 26.0-34.0 [facility] Comment on above: Order Comment: Speci men Type: BLOOD SPECIMEN Ordering Facility: [facility] Address: [address] [place] [address] Performed By: #### 5 8410-2 #### [facility] CLIA [id number] [address] [place] [address] [place] MCHC (RBC) [Mass/Vol] 33.6 g/dL Normal 30.5-36.0 [facility] Comment on above: Order Comment: Speci men Type: BLOOD SPECIMEN Ordering Facility[facility] Address: [address] [place] [address] Performed By: #### 5 8410-2 #### [facility] [id number] [address] [place] [address] [place] MCV (RBC) [Entitic vol] 87.6 fL Normal 80.0-100.0 [facility] Comment on above: Order Comment: Speci men Type: BLOOD SPECIMEN Ordering Facility[facility] Address: [address] [place] [address] Performed By: #### 5 8410-2 #### [facility] CLIA [id number] [address] [place] [address] [place] Nucleated RBC (Bld) [#/Vol] 10*3/uL Normal <0.01 [facility] Comment on above: Order Comment: Speci men Type: BLOOD SPECIMEN Ordering [facility] Address: [address] [place] [address] Performed By: #### 5 8410-2 #### [facility] CLIA [id number] [address] [place] [address] [place] Platelet mean volume (Bld) [Entitic vol] 10.5 fL Normal 9.0-12.7 [facility] Comment on above: Order Comment: Speci men Type: BLOOD SPECIMEN Ordering [facility] Address: [address] [place] [address] Performed By: #### 5 8410-2 #### [facility] CLIA [id number] [address] [place] [address] [place] Platelets (Bld) [#/Vol] 193 10*3/uL Normal 150-400 [facility] Comment on above: Order Comment: Speci men Type: BLOOD SPECIMEN Ordering [facility] Address: [address] [place] [address] Performed By: #### 5 8410-2 #### [facility] CLIA [id number] [address] [place] [address] [place] RBC (Bld) [#/Vol] 4.21 10*6/uL Normal 3.90-5.20 [facility] Comment on above: Order Comment: Speci men Type: BLOOD SPECIMEN Ordering Facility[facility] Address: [address] [place], [place] [address] Performed By: #### 5 8410-2 #### [facility] CLIA [id number] [address] [place] [address] [place] WBC (Bld) [#/Vol] 6.89 10*3/uL Normal 3.70-11.00 [facility] Comment on above: Order Comment: Speci men Type: BLOOD SPECIMEN Ordering [facility] Address: [address] [place] [address] Performed By: #### 5 8410-2 #### [facility] CLIA [id number] [address] [place] [address] OF [facility] CNPNon 02-26-2025 CNPN Telephone (FPUPDV) -- ADINA ESCOBAR I ([id number]) 1950 F Date Time Provider Department 02/26/25 KENTRELL DHALIWAL II UPDV During your visit [...] advise. Thank you. Patient last appointment:09/26/2024 (home) [phone] (cell) Perla Bryan MA 02/26/2025 8:49 AM Signed Spoke with [...] closer to home since she lives in [place]! Kentrell Dhaliwal II, MD 02/26/2025 9:04 AM [...] GI Upset PROPOXYPHENE 06/23/2015 16 - Unknown XPIBBMD-UDA-DGL REDUCTASE INHIBIT*06/22/2020 6 - Diarrhea 5 - [...] [E43] Order(s):COMPLETE BLOOD COUNT [SQCBC] Order #: [id number] FUTURE BASIC METABOLIC PANEL [SQBMP] Order #: [id number] FUTURE THYROID STIMULATING HORMONE [SQTSH] Order #: [id number] FUTURE IRON AND TIBC [SQIRON] Order #: [id number] STANDING VITAMIN D 25 HYDROXY [SQVITD] Order #: [id number] FUTURE VITAMIN B12 [SQB12] Order #: [id number] FUTURE Prescriptions as of 02/26/2025 - nabumetone [...] - cyclo (more content not included)... Normal [facility] Iron and Iron binding capaci ty panelon 02-26-2025 Iron [Mass/Vol] 107 ug/dL Normal 41-186 [facility] Comment on above: Order Comment: Speci men Type: BLOOD SPECIMEN [facility]ing [facility] Address: [address] [place] [address] Performed By: #### 2 132-9, 3016-3, 42177-9 #### [facility] CLIA [id number] [address] [place] [address] [place] Iron binding capacity [Mass/Vol] 385 ug/dL Normal 232-386 [facility] Comment on above: Order Comment: Sam talley Type: BLOOD SPECIMEN Order[facility] Address: [address] [place] [address] Performed By: #### 2 132-9, 3016-3, 00702-2 #### [facility] CLIA [id number] [address] [place] [address] [place] Iron/TIBC [Molar ratio] 27.8 % Normal 15.0-57.0 [facility] Comment on above: Order Comment: Speci men Type: BLOOD SPECIMEN [facility] Address: [address] [place] [address] Performed By: #### 2 132-9, 3016-3, 77465-3 #### [facility] CLIA [id number] [address] [place], [place] [address] [place] TSH SerPl-aCncon 02-26-2025 TSH Qn 1.550 m[IU]/L Normal 0.270-4.200 [facility] Comment on above: Order Comment: Speci men Type: BLOOD SPECIMEN [facility] Address: [address] [place] [address] Performed By: #### 2 132-9, 3016-3, 69090-5 #### [facility] CLIA [id number] [address] [place] [address] [place] Vit B12 SerPl-mCncon 025 Cobalamin (Vitamin B12) [Mass/Vol] 366 pg/mL Normal 232-1245 [facility] Comment on above: Order Comment: Sam talley Type: BLOOD SPECIMEN [facility] Address: [address] [place] [address] Performed By: #### 2 132-9, 3016-3, 45667-4 #### [facility] CLIA [id number] [address] [place] [address] [place] CNPNon 01-29-2025 CNPN Telephone (FPUPDV) -- ADINA ESCOBAR I ([id number]) 1950 F Date Time Provider Department 01/29/25 KENTRELL DHALIWAL II FPUPDV During your visit [...] be sent to pharmacy today Thank you [phone] (home) [phone] (cell) Patient last appointment: 09/26/2024 Eugenia Mckay [...] GI Upset PROPOXYPHENE 06/23/2015 16 - Unknown HAVLEPL-WMI-CAY REDUCTASE INHIBIT*06/22/2020 6 - Diarrhea 5 - [...] Diabetes (HCC) [E (more content not included)... [facility] 01-08-[address] [facility] Office [place] [place] -- ADINA ESCOBAR I ([id number]) 1950 F Date Time Provider Department 01/08/25 2:00 PM KENTRELL DHALIWAL II [facility] During your visit today, we recorded the following information about you: Pulse Respiration Blood pressure Weight 82/minute 16/minute 124/74 68.8 kg Height 1.549 m Kentrell Dhaliwal II, MD 01/08/2025 5:50 PM Signed Kentrell Dhaliwal II, [place] [address] SUBJECTIVE Adina I Shawn is a 74 year old [...] [Cefdinir] Diarrhea Prednisone GI Upset Propoxyphene Unknown Fhiqpyo-Lcu-Ief Red* Diarrhea, Intolerance Sulfa (Sulfonamide * Other: [...] directed. warfarin ( (more content not included)... [facility] ADINA ESCOBAR I ([id number]) 1950 F Date Time Provider Department 01/07/25 KENTRELL DHALIWAL II [facility] During your visit today, we recorded the [...] GI Upset PROPOXYPHENE 06/23/2015 16 - Unknown YZXJMZL-LNI-JEQ REDUCTASE INHIBIT*06/22/2020 6 - Diarrhea 5 - [...] tablet by mouth four times daily. - cxanjyiequv-esangbbpq-dbka nter (TRELEGY ELLIPTA) 100-62.5-25 mcg inhalation powder [...] 8 hours as needed for nausea/vomiting. - afkhomlgds-tupcjzfn-onrtuy itzel (BREZTRI AEROSPHERE) 160-9-4.8 mcg/actuation HFA aerosol [...] obstruction (HCC) [K56.609] more content not included)... [facility] 12-08-2024 [facility] Telephone ([facility]) -- ADINA ESCOBAR I ([id number]) 1950 F Date Time Provider Department 12/08/24 KENTRELL DHALIWAL II [facility] During your visit today, we recorded the [...] GI Upset PROPOXYPHENE 06/23/2015 16 - Unknown PVVBHVZ-CCY-QKE REDUCTASE INHIBIT*06/22/2020 6 - Diarrhea 5 - [...] tablet by mouth four times daily. - qvvmvmkzrzb-uhaxiouxa-gpcr nter (TRELEGY ELLIPTA) 100-62.5-25 mcg inhalation powder [...] 8 hours as needed for nausea/vomiting. - ishxtzfxuv-rcgqxnzn-bukmou itzel (BREZTRI AEROSPHERE) 160-9-4.8 mcg/actuation HFA aerosol [...] Drug-induced Parkinson's di (more content not included)... [facility] 11-28-2024 [facility] Telephone (FPUPDV) -- ADINA ESCOBAR I ([id number]) 1950 F Date Time Provider Department 11/28/24 KENTRELL DHALIWAL II [facility] During your visit today, we recorded the following information about you: DarronCinthia 11/28/2024 12:31 PM Signed Patient called in [...] GI Upset PROPOXYPHENE 06/23/2015 16 - Unknown MXOIMUR-VJG-LWQ REDUCTASE INHIBIT*06/22/2020 6 - Diarrhea 5 - [...] tablet by mouth four times daily. - lgxwckvdtrc-cmdwoikvd-oprn nter (TRELEGY ELLIPTA) 100-62.5-25 mcg inhalation powder [...] 8 hours as needed for nausea/vomiting. - sjoihutukw-icuazdnf-wwytdp itzel (BREZTRI AEROSPHERE) 160-9-4.8 mcg/actuation HFA aerosol [...] Drug-induced Parkinson's diseas (more content not included)... [facility]FPUPDV [facility] -- ADINA ESCOBAR I ([id number]) 1950 F Date Time Provider Department 09/26/24 2:40 PM KENTRELL DHALIWAL II FPSUSANDV During your visit today, we recorded the following information about you: Temperature Pulse Respiration Blood pressure 98.7 degrees 81/minute 24/minute 126/82 Weight Height 63.3 kg 1.549 m Kentrell Dhaliwal II, MD 09/26/2024 10:24 PM Signed Transitional Care Management TCM Eligibility Documentation Program: Transitional Care Management Status: Enrolled Effective Dates: 09/18/2024 - present Responsible Staff: Gertrude Mccloud, cardiovascular surgical tech date: 09/17/2024 (Program start) Date of initial contact: 09/18/2024 Initial contact Target status: Successful; Contact made within 2 business days post-discharge Summary Discharged from: [facility] Admit Date: 09/14/24 Admitted for: [...] GI Upset PROPOXYPHENE 06/23/2015 16 - Unknown YHAIZVZ-QEG-EWY REDUCTASE INHIBIT*06/22/2020 6 - Diarrhea 5 - Intolerance SULFA (SULFONAMIDE ANTIBIOTICS) 06/15/2020 14 - Other: See Comments Comments: Leg pain [employer] 11/29/2012 7 - Swelling Date Reviewed: 09/26/2024 Reviewed by: Dorothy Wallace MA - Fully Assessed Reason for Visit: Transition Of Care [0014] Cmt: Pt states she has been trying her best since getting out the hospital, brings in paperwork from the ER. Pt is very winded while talking. Pt states that she has been taking Phenergan stops her nausea but gives her heartburn, feels the Zofran does not work as well. Medication Question [9803] Cmt: Pt asked if she should be using the albuterol (more content not included)... Normal [facility] Basic Metabolic Profile (BMP )on 09-21-2024 BUN Normal 7-18 [facility] Comment on above: Result Comment: Canc elled via OM: Order cancelled - Patient discharged Performed By: #### L 500.2500 #### [facility] [address] [place], [address] BUN/CRE Normal 10-20 [facility] Comment on above: Result Comment: Canc elled via OM: Order cancelled - Patient discharged Performed By: #### L 500.2500 #### [facility] [address] [place], [address] CA,Total Normal 8.5-10.1 [facility] Comment on above: Result Comment: Canc elled via OM: Order cancelled - Patient discharged Performed By: #### L 500.2500 #### [facility] [address] [place], [address] CL Normal 98-107 [facility] Comment on above: Result Comment: Canc elled via OM: Order cancelled - Patient discharged Performed By: #### L 500.2500 #### [facility] [address] [place], [address] CO2 Normal 21.0-32.0 [facility] Comment on above: Result Comment: Canc elled via OM: Order cancelled - Patient discharged Performed By: #### L 500.2500 #### [facility] [address] [place], [address] CREAT,SERUM Normal 0.55-1.02 [facility] Comment on above: Result Comment: Canc elled via OM: Order cancelled - Patient discharged Performed By: #### L 500.2500 #### [facility] [address] [place], [address] EST GFR Normal >60 [facility] Comment on above: Result Comment: Canc elled via OM: Order cancelled - Patient discharged Performed By: #### L 500.2500 #### [facility] [address] [place], [address] EST GFR - AA Normal >60 [facility] Comment on above: Result Comment: Canc elled via OM: Order cancelled - Patient discharged Performed By: #### L 500.2500 #### [facility] [address] [place], [address] GAP Normal 5-15 [facility] Comment on above: Result Comment: Canc elled via OM: Order cancelled - Patient discharged Performed By: #### L 500.2500 #### [facility] [address] [place], [address] GLU Normal 74-106 [facility] Comment on above: Result Comment: Canc elled via OM: Order cancelled - Patient discharged Performed By: #### L 500.2500 #### [facility] [address] [place], [address] Potassium Normal 3.5-5.1 [facility] Comment on above: Result Comment: Canc elled via OM: Order cancelled - Patient discharged Performed By: #### L 500.2500 #### [facility] [address] [place], [address] Basic Metabolic Profile (BMP) Normal 136-145 [facility] Comment on above: Result Comment: Canc elled via OM: Order cancelled - Patient discharged Performed By: #### L 500.2500 #### [facility] [address] [place], [address] Basic Metabolic Profile (BMP )on 09-20-2024 BUN Normal 7-18 [facility] Comment on above: Result Comment: Canc elled via OM: Order cancelled - Patient discharged Performed By: #### L 500.2500 ####[facility] [address] [place], [address] BUN/CRE Normal 10-20 [facility] Comment on above: Result Comment: Canc elled via OM: Order cancelled - Patient discharged Performed By: #### L 500.2500 ####[facility] [address] [place], [address] CA,Total Normal 8.5-10.1 [facility] Comment on above: Result Comment: Canc elled via OM: Order cancelled - Patient discharged Performed By: #### L 500.2500 ####[facility] [address] [place], [address] CL Normal 98-107 [facility] Comment on above: Result Comment: Canc elled via OM: Order cancelled - Patient discharged Performed By: #### L 500.2500 ####[facility] [address] [place], [address] CO2 Normal 21.0-32.0 [facility] Comment on above: Result Comment: Canc elled via OM: Order cancelled - Patient discharged Performed By: #### L 500.2500 ####[facility] [address] [place], [address] CREAT,SERUM Normal 0.55-1.02 [facility] Comment on above: Result Comment: Canc elled via OM: Order cancelled - Patient discharged Performed By: #### L 500.2500 ####[facility] [address] [place], [address] EST GFR Normal >60 [facility] Comment on above: Result Comment: Canc elled via OM: Order cancelled - Patient discharged Performed By: #### L 500.2500 ####[facility] [address] [place], [address] EST GFR - AA Normal >60 [facility] Comment on above: Result Comment: Canc elled via OM: Order cancelled - Patient discharged Performed By: #### L 500.2500 ####[facility] [address] [place], [address] GAP Normal 5-15 [facility] Comment on above: Result Comment: Canc elled via OM: Order cancelled - Patient discharged Performed By: #### L 500.2500 ####[facility] [address] [place], [address] GLU Normal 74-106 [facility] Comment on above: Result Comment: Canc elled via OM: Order cancelled - Patient discharged Performed By: #### L 500.2500 ####[facility] [address] [place], [address] Potassium Normal 3.5-5.1 [facility] Comment on above: Result Comment: Canc elled via OM: Order cancelled - Patient discharged Performed By: #### L 500.2500 ####[facility] [address] [place], [address] Basic Metabolic Profile (BMP) Normal 136-145 [facility] Comment on above: Result Comment: Canc elled via OM: Order cancelled - Patient discharged Performed By: #### L 500.2500 ####[facility] [address] [place], [address] Prothrombin Time w/INRon INR Normal [facility] Comment on above: Result Comment: Canc elled via OM: Order cancelled - Patient discharged Performed By: #### L 300.3900 ####[facility] [address] [place], [address] PROTIME Normal 11.7-14.9 [facility] Comment on above: Result Comment: Canc elled via OM: Order cancelled - Patient discharged Performed By: #### L 300.3900 ####[facility] [address] [place], [address] Basic Metabolic Profile (BMP )on 09-19-2024 BUN Normal 7-18 [facility] Comment on above: Result Comment: Canc elled via OM: Order cancelled - Patient discharged Performed By: #### L 300.3900 #### [facility] [address] [place], [address] BUN/CRE Normal 10-20 [facility] Comment on above: Result Comment: Canc elled via OM: Order cancelled - Patient discharged Performed By: #### L 300.3900 #### [facility] [address] [place], [address] CA,Total Normal 8.5-10.1 [facility] Comment on above: Result Comment: Canc elled via OM: Order cancelled - Patient discharged Performed By: #### L 300.3900 #### [facility] [address] [place], [address] CL Normal 98-107 [facility] Comment on above: Result Comment: Canc elled via OM: Order cancelled - Patient discharged Performed By: #### L 300.3900 #### [facility] [address] [place], [address] CO2 Normal 21.0-32.0 [facility] Comment on above: Result Comment: Canc elled via OM: Order cancelled - Patient discharged Performed By: #### L 300.3900 #### [facility] [address] [place], [address] CREAT,SERUM Normal 0.55-1.02 [facility] Comment on above: Result Comment: Canc elled via OM: Order cancelled - Patient discharged Performed By: #### L 300.3900 #### [facility] [address] [place], [address] EST GFR Normal >60 [facility] Comment on above: Result Comment: Canc elled via OM: Order cancelled - Patient discharged Performed By: #### L 300.3900 #### [facility] [address] [place], [address] EST GFR - AA Normal >60 [facility] Comment on above: Result Comment: Canc elled via OM: Order cancelled - Patient discharged Performed By: #### L 300.3900 #### [facility] [address] [place], [address] GAP Normal 5-15 [facility] Comment on above: Result Comment: Canc elled via OM: Order cancelled - Patient discharged Performed By: #### L 300.3900 #### [facility] [address] [place], [address] GLU Normal 74-106 [facility] Comment on above: Result Comment: Canc elled via OM: Order cancelled - Patient discharged Performed By: #### L 300.3900 #### [facility] [address] [place], [address] Potassium Normal 3.5-5.1 [facility] Comment on above: Result Comment: Canc elled via OM: Order cancelled - Patient discharged Performed By: #### L 300.3900 #### [facility] [address] [place], [address] Basic Metabolic Profile (BMP) Normal 136-145 [facility] Comment on above: Result Comment: Canc elled via OM: Order cancelled - Patient discharged Performed By: #### L 300.3900 #### [facility] [address] [place], [address] Prothrombin Time w/INRon INR Normal [facility] Comment on above: Result Comment: Canc elled via OM: Order cancelled - Patient discharged Performed By: #### L 300.3900 #### [facility] [address] [place], [address] PROTIME Normal 11.7-14.9 [facility] Comment on above: Result Comment: Canc elled via OM: Order cancelled - Patient discharged Performed By: #### L 300.3900 #### [facility] [address] [place], [address] Basic Metabolic Profile (BMP )on 09-18-2024 BUN Normal 7-18 [facility] Comment on above: Result Comment: Canc elled via OM: Order cancelled - Patient discharged Performed By: #### L 300.3900 #### [facility] [address] [place], [address] BUN/CRE Normal 10-20 [facility] Comment on above: Result Comment: Canc elled via OM: Order cancelled - Patient discharged Performed By: #### L 300.3900 #### [facility] [address] [place], [address] CA,Total Normal 8.5-10.1 [facility] Comment on above: Result Comment: Canc elled via OM: Order cancelled - Patient discharged Performed By: #### L 300.3900 #### [facility] [address] [place], [address] CL Normal 98-107 [facility] Comment on above: Result Comment: Canc elled via OM: Order cancelled - Patient discharged Performed By: #### L 300.3900 #### [facility] [address] [place], [address] CO2 Normal 21.0-32.0 [facility] Comment on above: Result Comment: Canc elled via OM: Order cancelled - Patient discharged Performed By: #### L 300.3900 #### [facility] [address] [place], [address] CREAT,SERUM Normal 0.55-1.02 [facility] Comment on above: Result Comment: Canc elled via OM: Order cancelled - Patient discharged Performed By: #### L 300.3900 #### [facility] [address] [place], [address] EST GFR Normal >60 [facility] Comment on above: Result Comment: Canc elled via OM: Order cancelled - Patient discharged Performed By: #### L 300.3900 #### [facility] [address] [place], [address] EST GFR - AA Normal >60 [facility] Comment on above: Result Comment: Canc elled via OM: Order cancelled - Patient discharged Performed By: #### L 300.3900 #### [facility] [address] [place], [address] GAP Normal 5-15 [facility] Comment on above: Result Comment: Canc elled via OM: Order cancelled - Patient discharged Performed By: #### L 300.3900 #### [facility] [address] [place], [address] GLU Normal 74-106 [facility] Comment on above: Result Comment: Canc elled via OM: Order cancelled - Patient discharged Performed By: #### L 300.3900 #### [facility] [address] [place], [address] Potassium Normal 3.5-5.1 [facility] Comment on above: Result Comment: Canc elled via OM: Order cancelled - Patient discharged Performed By: #### L 300.3900 #### [facility] [address] [place], [address] Basic Metabolic Profile (BMP) Normal 136-145 [facility] Comment on above: Result Comment: Canc elled via OM: Order cancelled - Patient discharged Performed By: #### L 300.3900 #### [facility] [address] [place], [address] Prothrombin Time w/INRon INR Normal [facility] Comment on above: Result Comment: Canc elled via OM: Order cancelled - Patient discharged Performed By: #### L 300.3900 #### [facility] [address] [place], [address] PROTIME Normal 11.7-14.9 [facility] Comment on above: Result Comment: Canc elled via OM: Order cancelled - Patient discharged Performed By: #### L 300.3900 #### [facility] [address] [place], [address] Basic Metabolic Profile (BMP )on 09-17-2024 BUN/CRE 11.9 RATIO Normal 10-20 [facility] Comment on above: Performed By: #### L 100.0100, L500.3400, L500.2500 ####[facility] [address] [place], [address] CA,Total 8.7 mg/dL Normal 8.5-10.1 [facility] Comment on above: Performed By: #### L 100.0100, L500.3400, L500.2500 ####[facility] [address] [place], [address] Chloride [Moles/Vol] 111 mmol/L High 98-107 [facility] Comment on above: Performed By: #### L 100.0100, L500.3400, L500.2500 ####[facility] [address] [place], [address] CO2 [Moles/Vol] 23.0 mmol/L Normal 21.0-32.0 [facility] Comment on above: Performed By: #### L 100.0100, L500.3400, L500.2500 ####[facility] [address] [place], [address] Creatinine [Mass/Vol] 0.92 mg/dL Normal 0.55-1.02 [facility] Comment on above: Result Comment: The validity of the calculated GFR GFRAA in patients over 70 years has not been determined. Clinical correlation is essential. Performed By: #### L 100.0100, L500.3400, L500.2500 ####[facility] [address] [place], [address] ECRCL 47.01 ml/min Normal [facility] Comment on above: Performed By: #### L 100.0100, L500.3400, L500.2500 ####[facility] [address] [place], [address] EST GFR - AA 77 mL/min Normal >60 [facility] Comment on above: Result Comment: Afri can [place] GFR Calc Performed By: #### L 100.0100, L500.3400, L500.2500 ####[facility] [address] [place], [address] GAP 5 Normal 5-15 [facility] Comment on above: Performed By: #### L 100.0100, L500.3400, L500.2500 ####[facility] [address] [place], [address] GFR/1.73 sq M.predicted among non-blacks MDRD (S/P/Bld) [Vol rate/Area] 63 mL/min/{1.73_m2} Normal >60 [facility] Comment on above: Result Comment: Non- GFR Calc Performed By: #### L 100.0100, L500.3400, L500.2500 ####[facility] [address] [place], [address] Glucose [Mass/Vol] 112 mg/dL High 74-106 [facility] Comment on above: Result Comment: Fast ing Glucose result from 100 to 125 mg/dL suggests IMPAIRED HOMEOSTASIS per A.D.A. criteria. Performed By: #### L 100.0100, L500.3400, L500.2500 ####[facility] [address] [place], [address] Potassium [Moles/Vol] 3.6 mmol/L Normal 3.5-5.1 [facility] Comment on above: Performed By: #### L 100.0100, L500.3400, L500.2500 ####[facility] [address] [place], [address] Sodium [Moles/Vol] 139 mmol/L Normal 136-145 [facility] Comment on above: Performed By: #### L 100.0100, L500.3400, L500.2500 ####[facility] [address] [place], [address] Urea nitrogen [Mass/Vol] 11 mg/dL Normal 7-18 [facility] Comment on above: Performed By: #### L 100.0100, L500.3400, L500.2500 ####[facility] [address] [place], [address] CBC W/Diff, Automatedon 01-0 -2024 Absolute Lymph 2.48 X10 3/uL Normal 0.83-4.51 [facility] Comment on above: Performed By: #### L 100.0100, L500.3400, L500.2500 ####[facility] [address] [place], [address] Absolute Neut 4.7 X10 3/uL Normal 2.0-7.7 [facility] Comment on above: Performed By: #### L 100.0100, L500.3400, L500.2500 ####[facility] [address] [place], [address] Basophils/100 WBC (Bld) 0.7 % Normal 0-1 [facility] Comment on above: Performed By: #### L 100.0100, L500.3400, L500.2500 ####[facility] [address] [place], [address] Eosinophils/100 WBC (Bld) 3.6 % Normal 0-5 [facility] Comment on above: Performed By: #### L 100.0100, L500.3400, L500.2500 ####[facility] [address] [place], [address] Erythrocyte distribution width (RBC) [Ratio] 13.2 % Normal 11.6-14.6 [facility] Comment on above: Performed By: #### L 100.0100, L500.3400, L500.2500 ####[facility] [address] [place], [address] Hematocrit (Bld) [Volume fraction] 30.4 % Low 37-47 [facility] Comment on above: Performed By: #### L 100.0100, L500.3400, L500.2500 ####[facility] [address] [place], [address] Hemoglobin (Bld) [Mass/Vol] 9.9 g/dL Low 12.0-15.0 [facility] Comment on above: Performed By: #### L 100.0100, L500.3400, L500.2500 ####[facility] [address] [place], [address] IG% 0.400 Normal 0.0-0.9 [facility] Comment on above: Result Comment: IG% - Immature Granulocytes (promyelocytes, myelocytes and metamyelocytes) > 1% indicates that a LEFT SHIFT is Present. Performed By: #### L 100.0100, L500.3400, L500.2500 ####[facility] [address] [place], [address] Lymphocytes/100 WBC (Bld) 29.8 % Normal 19-41 [facility] Comment on above: Performed By: #### L 100.0100, L500.3400, L500.2500 ####[facility] [address] [place], [address] MCH (RBC) [Entitic mass] 29.6 pg Normal 27.0-32.0 [facility] Comment on above: Performed By: #### L 100.0100, L500.3400, L500.2500 ####[facility] [address] [place], [address] MCHC (RBC) [Mass/Vol] 32.6 g/dL Normal 32-36 [facility] Comment on above: Performed By: #### L 100.0100, L500.3400, L500.2500 ####[facility] [address] [place], [address] MCV (RBC) [Entitic vol] 90.7 fL Normal 81-99 [facility] Comment on above: Performed By: #### L 100.0100, L500.3400, L500.2500 ####[facility] [address] [place], [address] Monocytes/100 WBC (Bld) 9.5 % Normal 0-10 [facility] Comment on above: Performed By: #### L 100.0100, L500.3400, L500.2500 ####[facility] [address] [place], [address] Neutrophils/100 WBC (Bld) 56.0 % Normal 47-70 [facility] Comment on above: Performed By: #### L 100.0100, L500.3400, L500.2500 ####[facility] [address] [place], [address] Nucleated RBC (Bld) [#/Vol] 0 10*3/uL Normal 0-5 [facility] Comment on above: Performed By: #### L 100.0100, L500.3400, L500.2500 ####[facility] [address] [place], [address] Platelet mean volume (Bld) [Entitic vol] 9.6 fL Normal 6.2-12.0 [facility] Comment on above: Performed By: #### L 100.0100, L500.3400, L500.2500 ####[facility] [address] [place], [address] Platelets (Bld) [#/Vol] 372 10*3/uL Normal 150-450 [facility] Comment on above: Performed By: #### L 100.0100, L500.3400, L500.2500 ####[facility] [address] [place], [address] RBC (Bld) [#/Vol] 3.35 10*6/uL Low 4.2-5.4 [facility] Comment on above: Performed By: #### L 100.0100, L500.3400, L500.2500 ####[facility] [address] [place], [address] RDW SD 43.8 fl Normal 35.1-43.9 [facility] Comment on above: Performed By: #### L 100.0100, L500.3400, L500.2500 ####[facility] [address] [place], [address] WBC (Bld) [#/Vol] 8.3 10*3/uL Normal 4.4-11.0 [facility] Comment on above: Performed By: #### L 100.0100, L500.3400, L500.2500 ####[facility] [address] [place], [address] Liver Profileon 09-17-2024 Albumin [Mass/Vol] 3.0 g/dL Low 3.2-5.0 [facility] Comment on above: Performed By: #### L 100.0100, L500.3400, L500.2500 ####[facility] [address] [place], [address] ALK P 119 U/L High 45-117 [facility] Comment on above: Performed By: #### L 100.0100, L500.3400, L500.2500 ####[facility] [address] [place], [address] ALT [Catalytic activity/Vol] 71 U/L High 13-56 [facility] Comment on above: Performed By: #### L 100.0100, L500.3400, L500.2500 ####[facility] [address] [place], [address] AST [Catalytic activity/Vol] 54 U/L High 15-37 [facility] Comment on above: Performed By: #### L 100.0100, L500.3400, L500.2500 ####[facility] [address] [place], [address] Bilirubin [Mass/Vol] 0.50 mg/dL Normal 0.20-1.00 [facility] Comment on above: Result Comment: For patients on eltrombopag therapy, use of Dimension [place] TBIL is not recommended. Performed By: #### L 100.0100, L500.3400, L500.2500 ####[facility] [address] [place], [address] Bilirubin.direct [Mass/Vol] 0.13 mg/dL Normal 0.00-0.30 [facility] Comment on above: Performed By: #### L 100.0100, L500.3400, L500.2500 ####[facility] [address] [place], [address] Globulin (S) [Mass/Vol] 3.4 g/dL Normal 2.2-4.2 [facility] Comment on above: Performed By: #### L 100.0100, L500.3400, L500.2500 ####[facility] [address] [place], [address] T PROT 6.4 g/dL Normal 6.4-8.2 [facility] Comment on above: Performed By: #### L 100.0100, L500.3400, L500.2500 ####[facility] [address] [place], [address] Prothrombin Time w/INRon INR Coag (PPP) [Relative time] 1.1 {INR} Normal [facility] Comment on above: Performed By: #### L 300.3900 #### [facility] [address] [place], [address] PT Coag (PPP) [Time] 14.8 s Normal 11.7-14.9 [facility] Comment on above: Performed By: #### L 300.3900 #### [facility] [address] [place], [address] Basic Metabolic Profile (BMP )on 09-16-2024 BUN/CRE 14.9 RATIO Normal 10-20 [facility] Comment on above: Performed By: #### L 300.3900 #### [facility] [address] [place], [address] CA,Total 8.5 mg/dL Normal 8.5-10.1 [facility] Comment on above: Performed By: #### L 300.3900 #### [facility] [address] [place], [address] Chloride [Moles/Vol] 108 mmol/L High 98-107 [facility] Comment on above: Performed By: #### L 300.3900 #### [facility] [address] [place], [address] CO2 [Moles/Vol] 23.0 mmol/L Normal 21.0-32.0 [facility] Comment on above: Performed By: #### L 300.3900 #### [facility] [address] [place], [address] Creatinine [Mass/Vol] 0.94 mg/dL Normal 0.55-1.02 [facility] Comment on above: Result Comment: The validity of the calculated GFR GFRAA in patients over 70 years has not been determined. Clinical correlation is essential. Performed By: #### L 300.3900 #### [facility] [address] [place], [address] ECRCL 46.01 ml/min Normal [facility] Comment on above: Performed By: #### L 300.3900 #### [facility] [address] [place], [address] EST GFR - AA 75 mL/min Normal >60 [facility] Comment on above: Result Comment: Afri can [place] GFR Calc Performed By: #### L 300.3900 #### [facility] [address] [place], [address] GAP 6 Normal 5-15 [facility] Comment on above: Performed By: #### L 300.3900 #### [facility] [address] [place], [address] GFR/1.73 sq M.predicted among non-blacks MDRD (S/P/Bld) [Vol rate/Area] 62 mL/min/{1.73_m2} Normal >60 [facility] Comment on above: Result Comment: Non- GFR Calc Performed By: #### L 300.3900 #### [facility] [address] [place], [address] Glucose [Mass/Vol] 103 mg/dL Normal 74-106 [facility] Comment on above: Result Comment: Fast ing Glucose result from 100 to 125 mg/dL suggests IMPAIRED HOMEOSTASIS per A.D.A. criteria. Performed By: #### L 300.3900 #### [facility] [address] [place], [address] Potassium [Moles/Vol] 3.8 mmol/L Normal 3.5-5.1 [facility] Comment on above: Performed By: #### L 300.3900 #### [facility] [address] [place], [address] Sodium [Moles/Vol] 138 mmol/L Normal 136-145 [facility] Comment on above: Performed By: #### L 300.3900 #### [facility] [address] [place], [address] Urea nitrogen [Mass/Vol] 14 mg/dL Normal 7-18 [facility] Comment on above: Performed By: #### L 300.3900 #### [facility] [address] [place], [address] CBC W/Diff, Automatedon 12-3 -2023 Absolute Lymph 2.92 X10 3/uL Normal 0.83-4.51 [facility] Comment on above: Performed By: #### L 300.3900 #### [facility] [address] [place], [address] Absolute Neut 4.6 X10 3/uL Normal 2.0-7.7 [facility] Comment on above: Performed By: #### L 300.3900 #### [facility] [address] [place], [address] Basophils/100 WBC (Bld) 0.9 % Normal 0-1 [facility] Comment on above: Performed By: #### L 300.3900 #### [facility] [address] [place], [address] Eosinophils/100 WBC (Bld) 2.8 % Normal 0-5 [facility] Comment on above: Performed By: #### L 300.3900 #### [facility] [address] [place], [address] Erythrocyte distribution width (RBC) [Ratio] 13.2 % Normal 11.6-14.6 [facility] Comment on above: Performed By: #### L 300.3900 #### [facility] [address] [place], [address] Hematocrit (Bld) [Volume fraction] 30.8 % Low 37-47 [facility] Comment on above: Performed By: #### L 300.3900 #### [facility] [address] [place], [address] Hemoglobin (Bld) [Mass/Vol] 10.1 g/dL Low 12.0-15.0 [facility] Comment on above: Performed By: #### L 300.3900 #### [facility] [address] [place], [address] IG% 0.500 Normal 0.0-0.9 [facility] Comment on above: Result Comment: IG% - Immature Granulocytes (promyelocytes, myelocytes and metamyelocytes) > 1% indicates that a LEFT SHIFT is Present. Performed By: #### L 300.3900 #### [facility] [address] [place], [address] Lymphocytes/100 WBC (Bld) 33.8 % Normal 19-41 [facility] Comment on above: Performed By: #### L 300.3900 #### [facility] [address] [place], [address] MCH (RBC) [Entitic mass] 30.3 pg Normal 27.0-32.0 [facility] Comment on above: Performed By: #### L 300.3900 #### [facility] [address] [place], [address] MCHC (RBC) [Mass/Vol] 32.8 g/dL Normal 32-36 [facility] Comment on above: Performed By: #### L 300.3900 #### [facility] [address] [place], [address] MCV (RBC) [Entitic vol] 92.5 fL Normal 81-99 [facility] Comment on above: Performed By: #### L 300.3900 #### [facility] [address] [place], [address] Monocytes/100 WBC (Bld) 9.5 % Normal 0-10 [facility] Comment on above: Performed By: #### L 300.3900 #### [facility] [address] [place], [address] Neutrophils/100 WBC (Bld) 52.5 % Normal 47-70 [facility] Comment on above: Performed By: #### L 300.3900 #### [facility] [address] [place], [address] Nucleated RBC (Bld) [#/Vol] 0 10*3/uL Normal 0-5 [facility] Comment on above: Performed By: #### L 300.3900 #### [facility] [address] [place], [address] Platelet mean volume (Bld) [Entitic vol] 9.8 fL Normal 6.2-12.0 [facility] Comment on above: Performed By: #### L 300.3900 #### [facility] [address] [place], [address] Platelets (Bld) [#/Vol] 382 10*3/uL Normal 150-450 [facility] Comment on above: Performed By: #### L 300.3900 #### [facility] [address] [place], [address] RBC (Bld) [#/Vol] 3.33 10*6/uL Low 4.2-5.4 [facility] Comment on above: Performed By: #### L 300.3900 #### [facility] [address] [place], [address] RDW SD 44.8 fl High 35.1-43.9 [facility] Comment on above: Performed By: #### L 300.3900 #### [facility] [address] [place], [address] WBC (Bld) [#/Vol] 8.7 10*3/uL Normal 4.4-11.0 [facility] Comment on above: Performed By: #### L 300.3900 #### [facility] [address] [place], [address] L501.5101on 09-16-2024 GGTP 89 IU/L Abnormal 0-60 [facility] Comment on above: Order Comment: ICU C ALLED AND INFORMED US THAT THIS PT IS OUR DRAW RAN OZZY MELLO. Result Comment: Perf ormed at: [facility] [address] [id number] Furn[employer] Utility Operator: Chip Bray PhD, Phone: [phone] Performed By: #### L 300.3900 #### [facility] [address] [place], [address] Liver Profileon 09-16-2024 Albumin [Mass/Vol] 2.9 g/dL Low 3.2-5.0 [facility] Comment on above: Performed By: #### L 300.3900 #### [facility] [address] [place], [address] ALK P 124 U/L High 45-117 [facility] Comment on above: Performed By: #### L 300.3900 #### [facility] [address] [place], [address] ALT [Catalytic activity/Vol] 92 U/L High 13-56 [facility] Comment on above: Performed By: #### L 300.3900 #### [facility] [address] [place], [address] AST [Catalytic activity/Vol] 79 U/L High 15-37 [facility] Comment on above: Performed By: #### L 300.3900 #### [facility] [address] [place], [address] Bilirubin [Mass/Vol] 0.70 mg/dL Normal 0.20-1.00 [facility] Comment on above: Result Comment: For patients on eltrombopag therapy, use of Dimension [place] TBIL is not recommended. Performed By: #### L 300.3900 #### [facility] [address] [place], [address] Bilirubin.direct [Mass/Vol] 0.14 mg/dL Normal 0.00-0.30 [facility] Comment on above: Performed By: #### L 300.3900 #### [facility] [address] [place], [address] Globulin (S) [Mass/Vol] 3.5 g/dL Normal 2.2-4.2 [facility] Comment on above: Performed By: #### L 300.3900 #### [facility] [address] [place], [address] T PROT 6.4 g/dL Normal 6.4-8.2 [facility] Comment on above: Performed By: #### L 300.3900 #### [facility] [address] [place], [address] Prothrombin Time w/INRon INR Coag (PPP) [Relative time] 1.2 {INR} Normal [facility] Comment on above: Performed By: #### L 300.3900 #### [facility] [address] [place], [address] PT Coag (PPP) [Time] 15.4 s High 11.7-14.9 [facility] Comment on above: Performed By: #### L 300.3900 #### [facility] [address] [place], [address] Basic Metabolic Profile (BMP )on 09-15-2024 BUN/CRE 15.7 RATIO Normal 10-20 [facility] Comment on above: Performed By: #### L 100.0100, L500.2500, L500.3400 ####[facility] [address] [place], [address] CA,Total 8.7 mg/dL Normal 8.5-10.1 [facility] Comment on above: Performed By: #### L 100.0100, L500.2500, L500.3400 ####[facility] [address] [place], [address] Chloride [Moles/Vol] 114 mmol/L High 98-107 [facility] Comment on above: Performed By: #### L 100.0100, L500.2500, L500.3400 ####[facility] [address] [place], [address] CO2 [Moles/Vol] 23.0 mmol/L Normal 21.0-32.0 [facility] Comment on above: Performed By: #### L 100.0100, L500.2500, L500.3400 ####[facility] [address] [place], [address] Creatinine [Mass/Vol] 0.96 mg/dL Normal 0.55-1.02 [facility] Comment on above: Result Comment: The validity of the calculated GFR GFRAA in patients over 70 years has not been determined. Clinical correlation is essential. Performed By: #### L 100.0100, L500.2500, L500.3400 ####[facility] [address] [place], [address] ECRCL 45.07 ml/min Normal [facility] Comment on above: Performed By: #### L 100.0100, L500.2500, L500.3400 ####[facility] [address] [place], [address] EST GFR - AA 74 mL/min Normal >60 [facility] Comment on above: Result Comment: Afri can [place] GFR Calc Performed By: #### L 100.0100, L500.2500, L500.3400 ####[facility] [address] [place], [address] GAP 3 Low 5-15 [facility] Comment on above: Performed By: #### L 100.0100, L500.2500, L500.3400 ####[facility] [address] [place], [address] GFR/1.73 sq M.predicted among non-blacks MDRD (S/P/Bld) [Vol rate/Area] 61 mL/min/{1.73_m2} Normal >60 [facility] Comment on above: Result Comment: Non- GFR Calc Performed By: #### L 100.0100, L500.2500, L500.3400 ####[facility] [address] [place], [address] Glucose [Mass/Vol] 112 mg/dL High 74-106 [facility] Comment on above: Result Comment: Fast ing Glucose result from 100 to 125 mg/dL suggests IMPAIRED HOMEOSTASIS per A.D.A. criteria. Performed By: #### L 100.0100, L500.2500, L500.3400 ####[facility] [address] [place], [address] Potassium [Moles/Vol] 4.0 mmol/L Normal 3.5-5.1 [facility] Comment on above: Performed By: #### L 100.0100, L500.2500, L500.3400 ####[facility] [address] [place], [address] Sodium [Moles/Vol] 140 mmol/L Normal 136-145 [facility] Comment on above: Performed By: #### L 100.0100, L500.2500, L500.3400 ####[facility] [address] [place], [address] Urea nitrogen [Mass/Vol] 15 mg/dL Normal 7-18 [facility] Comment on above: Performed By: #### L 100.0100, L500.2500, L500.3400 ####[facility] [address] [place], [address] CBC W/Diff, Automatedon 12-3 0-4 Absolute Lymph 2.24 X10 3/uL Normal 0.83-4.51 [facility] Comment on above: Performed By: #### L 100.0100, L500.2500, L500.3400 ####[facility] [address] [place], [address] Absolute Neut 6.9 X10 3/uL Normal 2.0-7.7 [facility] Comment on above: Performed By: #### L 100.0100, L500.2500, L500.3400 ####[facility] [address] [place], [address] Basophils/100 WBC (Bld) 0.3 % Normal 0-1 [facility] Comment on above: Performed By: #### L 100.0100, L500.2500, L500.3400 ####[facility] [address] [place], [address] Eosinophils/100 WBC (Bld) 0.2 % Normal 0-5 [facility] Comment on above: Performed By: #### L 100.0100, L500.2500, L500.3400 ####[facility] [address] [place], [address] Erythrocyte distribution width (RBC) [Ratio] 13.2 % Normal 11.6-14.6 [facility] Comment on above: Performed By: #### L 100.0100, L500.2500, L500.3400 ####[facility] [address] [place], [address] Hematocrit (Bld) [Volume fraction] 30.6 % Low 37-47 [facility] Comment on above: Performed By: #### L 100.0100, L500.2500, L500.3400 ####[facility] [address] [place], [address] Hemoglobin (Bld) [Mass/Vol] 9.7 g/dL Low 12.0-15.0 [facility] Comment on above: Performed By: #### L 100.0100, L500.2500, L500.3400 ####[facility] [address] [place], [address] IG% 0.600 Normal 0.0-0.9 [facility] Comment on above: Result Comment: IG% - Immature Granulocytes (promyelocytes, myelocytes and metamyelocytes) > 1% indicates that a LEFT SHIFT is Present. Performed By: #### L 100.0100, L500.2500, L500.3400 ####[facility] [address] [place], [address] Lymphocytes/100 WBC (Bld) 22.1 % Normal 19-41 [facility] Comment on above: Performed By: #### L 100.0100, L500.2500, L500.3400 ####[facility] [address] [place], [address] MCH (RBC) [Entitic mass] 29.0 pg Normal 27.0-32.0 [facility] Comment on above: Performed By: #### L 100.0100, L500.2500, L500.3400 ####[facility] [address] [place], [address] MCHC (RBC) [Mass/Vol] 31.7 g/dL Low 32-36 [facility] Comment on above: Performed By: #### L 100.0100, L500.2500, L500.3400 ####[facility] [address] [place], [address] MCV (RBC) [Entitic vol] 91.3 fL Normal 81-99 [facility] Comment on above: Performed By: #### L 100.0100, L500.2500, L500.3400 ####[facility] [address] [place], [address] Monocytes/100 WBC (Bld) 8.9 % Normal 0-10 [facility] Comment on above: Performed By: #### L 100.0100, L500.2500, L500.3400 ####[facility] [address] [place], [address] Neutrophils/100 WBC (Bld) 67.9 % Normal 47-70 [facility] Comment on above: Performed By: #### L 100.0100, L500.2500, L500.3400 ####[facility] [address] [place], [address] Nucleated RBC (Bld) [#/Vol] 0 10*3/uL Normal 0-5 [facility] Comment on above: Performed By: #### L 100.0100, L500.2500, L500.3400 ####[facility] [address] [place], [address] Platelet mean volume (Bld) [Entitic vol] 9.1 fL Normal 6.2-12.0 [facility] Comment on above: Performed By: #### L 100.0100, L500.2500, L500.3400 ####[facility] [address] [place], [address] Platelets (Bld) [#/Vol] 370 10*3/uL Normal 150-450 [facility] Comment on above: Performed By: #### L 100.0100, L500.2500, L500.3400 ####[facility] [address] [place], [address] RBC (Bld) [#/Vol] 3.35 10*6/uL Low 4.2-5.4 [facility] Comment on above: Performed By: #### L 100.0100, L500.2500, L500.3400 ####[facility] [address] [place], [address] RDW SD 43.8 fl Normal 35.1-43.9 [facility] Comment on above: Performed By: #### L 100.0100, L500.2500, L500.3400 ####[facility] [address] [place], [address] WBC (Bld) [#/Vol] 10.1 10*3/uL Normal 4.4-11.0 [facility] Comment on above: Performed By: #### L 100.0100, L500.2500, L500.3400 ####[facility] [address] [place], [address] Liver Profileon 09-15-2024 Albumin [Mass/Vol] 2.9 g/dL Low 3.2-5.0 [facility] Comment on above: Performed By: #### L 100.0100, L500.2500, L500.3400 ####[facility] [address] [place], [address] ALK P 136 U/L High 45-117 [facility] Comment on above: Performed By: #### L 100.0100, L500.2500, L500.3400 ####[facility] [address] [place], [address] ALT [Catalytic activity/Vol] 129 U/L High 13-56 [facility] Comment on above: Performed By: #### L 100.0100, L500.2500, L500.3400 ####[facility] [address] [place], [address] AST [Catalytic activity/Vol] 145 U/L High 15-37 [facility] Comment on above: Performed By: #### L 100.0100, L500.2500, L500.3400 ####[facility] [address] [place], [address] Bilirubin [Mass/Vol] 0.60 mg/dL Normal 0.20-1.00 [facility] Comment on above: Result Comment: For patients on eltrombopag therapy, use of Dimension [place] TBIL is not recommended. Performed By: #### L 100.0100, L500.2500, L500.3400 ####[facility] [address] [place], [address] Bilirubin.direct [Mass/Vol] 0.17 mg/dL Normal 0.00-0.30 [facility] Comment on above: Performed By: #### L 100.0100, L500.2500, L500.3400 ####[facility] [address] [place], [address] Globulin (S) [Mass/Vol] 3.5 g/dL Normal 2.2-4.2 [facility] Comment on above: Performed By: #### L 100.0100, L500.2500, L500.3400 ####[facility] [address] [place], [address] T PROT 6.4 g/dL Normal 6.4-8.2 [facility] Comment on above: Performed By: #### L 100.0100, L500.2500, L500.3400 ####[facility] [address] [place], [address] MR/CON.PCM.Troy 09-15-2024 MR/CON.PCM.GI [facility] Medical Records Department [address] [place] [address] Consultation - GI 09/15/24 1636 MR#: [id number] Acct: [id number] Name: ADINA ESCOBAR Rep #: [id number] : 1950 74 From: Donnie Blanchard DO PCP: Dr. Kentrell Dhaliwal MD Status:ADM IN Location: ICU [id number] HPI Consult Data Date of Consult: 09/15/24 [...] if there is a history of cholecystectomy. [facility]LY [facility] Medical History Irritable bowel Scarlet [...] (From Levaquin) AdvReac Vomiting Verified 09/13/24 20:52 Howbqrk-UJF-BhI Reductase AdvReac NEEDS Verified 09/13/24 20:52 Inhibitor [...] Plt Count (more content not included)... Normal [facility] MRCP Abdomen without Contras ton 09-15-2024 MRCP Abdomen without Contrast [facility] Imaging Services [address] [place] [address] [id number] MRCP Abdomen without Contrast MR#: [id number] Acct: [id number] Name: ADINA ESCOBAR Rep #: [id number] : 1950 F 74 From: Fred Magana MD PCP: Dr. Kentrell Dhaliwal MD Status: ADM IN Study: MRCP Abdomen without Contrast Date of Exam: Exam# [id number] Ordering Dr: Heriberto Bartholomew MD [id number] STUDY: MR CHOLANGIOPANCREATOGRAPHY (MRCP) REASON FOR EXAM: [...] Heriberto Bartholomew MD; Dr. Kentrell Dhaliwal MD Migrant Leader: Signed Normal [facility] Prothrombin Time w/INRon INR Coag (PPP) [Relative time] 1.1 {INR} Normal [facility] Comment on above: Performed By: #### L 300.3900 #### [facility] [address] [place], [address] PT Coag (PPP) [Time] 14.3 s Normal 11.7-14.9 [facility] Comment on above: Performed By: #### L 300.3900 #### [facility] [address] [place], [address] CBC W/Diff, Automatedon 12- Absolute Lymph 3.53 X10 3/uL Normal 0.83-4.51 [facility] Comment on above: Performed By: #### L 500.2500 #### [facility] [address] [place], [address] Absolute Neut 9.3 X10 3/uL High 2.0-7.7 [facility] Comment on above: Performed By: #### L 500.2500 #### [facility] [address] [place], [address] Basophils/100 WBC (Bld) 0.5 % Normal 0-1 [facility] Comment on above: Performed By: #### L 500.2500 #### [facility] [address] [place], [address] Eosinophils/100 WBC (Bld) 3.0 % Normal 0-5 [facility] Comment on above: Performed By: #### L 500.2500 #### [facility] [address] [place], [address] Erythrocyte distribution width (RBC) [Ratio] 13.2 % Normal 11.6-14.6 [facility] Comment on above: Performed By: #### L 500.2500 #### [facility] [address] [place], [address] Hematocrit (Bld) [Volume fraction] 35.1 % Low 37-47 [facility] Comment on above: Performed By: #### L 500.2500 #### [facility] [address] [place], [address] Hemoglobin (Bld) [Mass/Vol] 11.1 g/dL Low 12.0-15.0 [facility] Comment on above: Performed By: #### L 500.2500 #### [facility] [address] [place], [address] IG% 0.700 Normal 0.0-0.9 [facility] Comment on above: Result Comment: IG% - Immature Granulocytes (promyelocytes, myelocytes and metamyelocytes) > 1% indicates that a LEFT SHIFT is Present. Performed By: #### L 500.2500 #### [facility] [address] [place], [address] Lymphocytes/100 WBC (Bld) 23.8 % Normal 19-41 [facility] Comment on above: Performed By: #### L 500.2500 #### [facility] [address] [place], [address] MCH (RBC) [Entitic mass] 29.4 pg Normal 27.0-32.0 [facility] Comment on above: Performed By: #### L 500.2500 #### [facility] [address] [place], [address] MCHC (RBC) [Mass/Vol] 31.6 g/dL Low 32-36 [facility] Comment on above: Performed By: #### L 500.2500 #### [facility] [address] [place], [address] MCV (RBC) [Entitic vol] 93.1 fL Normal 81-99 [facility] Comment on above: Performed By: #### L 500.2500 #### [facility] [address] [place], [address] Monocytes/100 WBC (Bld) 9.0 % Normal 0-10 [facility] Comment on above: Performed By: #### L 500.2500 #### [facility] [address] [place], [address] Neutrophils/100 WBC (Bld) 63.0 % Normal 47-70 [facility] Comment on above: Performed By: #### L 500.2500 #### [facility] [address] [place], [address] Nucleated RBC (Bld) [#/Vol] 0 10*3/uL Normal 0-5 [facility] Comment on above: Performed By: #### L 500.2500 #### [facility] [address] [place], [address] Platelet mean volume (Bld) [Entitic vol] 9.3 fL Normal 6.2-12.0 [facility] Comment on above: Performed By: #### L 500.2500 #### [facility] [address] [place], [address] Platelets (Bld) [#/Vol] 433 10*3/uL Normal 150-450 [facility] Comment on above: Performed By: #### L 500.2500 #### [facility] [address] [place], [address] RBC (Bld) [#/Vol] 3.77 10*6/uL Low 4.2-5.4 [facility] Comment on above: Performed By: #### L 500.2500 #### [facility] [address] [place], [address] RDW SD 45.1 fl High 35.1-43.9 [facility] Comment on above: Performed By: #### L 500.2500 #### [facility] [address] [place], [address] WBC (Bld) [#/Vol] 14.8 10*3/uL High 4.4-11.0 [facility] Comment on above: Performed By: #### L 500.2500 #### [facility] [address] [place], [address] CPK Total, Creatine Kinaseon 09-14-2024 CPK TOTAL 404 U/L High 26-192 [facility] Comment on above: Performed By: #### L 501.3620, L501.6710 ####[facility] [address] [place], [address] CRPon 09-14-2024 C-REACTIVE PROT < 2.90 Normal 0.0-3.0 [facility] Comment on above: Result Comment: C-Re active Protein (CRP) provides useful information for the diagnosis, therapy and monitoring of inflammatory processes and associated diseases. For the evaluation of Relative Risk for Cardiovascular Disease, a High Sensitivity CRP (HSCRP) should be ordered. Performed By: #### L 500.2500 #### [facility] [address] [place], [address] Comprehensive Metabolic Prof ilon 12-29-2024 Albumin [Mass/Vol] 3.1 g/dL Low 3.2-5.0 [facility] Comment on above: Performed By: #### L 500.2500 #### [facility] [address] [place], [address] Albumin/Globulin [Mass ratio] 0.8 {ratio} Low 0.9-2.4 [facility] Comment on above: Performed By: #### L 500.2500 #### [facility] [address] [place], [address] ALK P 138 U/L High 45-117 [facility] Comment on above: Performed By: #### L 500.2500 #### [facility] [address] [place], [address] ALT [Catalytic activity/Vol] 123 U/L High 13-56 [facility] Comment on above: Performed By: #### L 500.2500 #### [facility] [address] [place], [address] AST [Catalytic activity/Vol] 311 U/L High 15-37 [facility] Comment on above: Performed By: #### L 500.2500 #### [facility] [address] [place], [address] Bilirubin [Mass/Vol] 0.70 mg/dL Normal 0.20-1.00 [facility] Comment on above: Result Comment: For patients on eltrombopag therapy, use of Dimension [place] TBIL is not recommended. Performed By: #### L 500.2500 #### [facility] [address] [place], [address] BUN/CRE 16.3 RATIO Normal 10-20 [facility] Comment on above: Performed By: #### L 500.2500 #### [facility] [address] [place], [address] CA,Total 8.7 mg/dL Normal 8.5-10.1 [facility] Comment on above: Performed By: #### L 500.2500 #### [facility] [address] [place], [address] Chloride [Moles/Vol] 112 mmol/L High 98-107 [facility] Comment on above: Performed By: #### L 500.2500 #### [facility] [address] [place], [address] CO2 [Moles/Vol] 23.0 mmol/L Normal 21.0-32.0 [facility] Comment on above: Performed By: #### L 500.2500 #### [facility] [address] [place], [address] Creatinine [Mass/Vol] 1.04 mg/dL High 0.55-1.02 [facility] Comment on above: Result Comment: The validity of the calculated GFR GFRAA in patients over 70 years has not been determined. Clinical correlation is essential. Performed By: #### L 500.2500 #### [facility] [address] [place], [address] ECRCL 41.34 ml/min Normal [facility] Comment on above: Performed By: #### L 500.2500 #### [facility] [address] [place], [address] EST GFR - AA 67 mL/min Normal >60 [facility] Comment on above: Result Comment: Afri can [place] GFR Calc Performed By: #### L 500.2500 #### [facility] [address] [place], [address] GAP 4 Low 5-15 [facility] Comment on above: Performed By: #### L 500.2500 #### [facility] [address] [place], [address] GFR/1.73 sq M.predicted among non-blacks MDRD (S/P/Bld) [Vol rate/Area] 55 mL/min/{1.73_m2} Low >60 [facility] Comment on above: Result Comment: Non- GFR Calc Performed By: #### L 500.2500 #### [facility] [address] [place], [address] Globulin (S) [Mass/Vol] 3.8 g/dL Normal 2.2-4.2 [facility] Comment on above: Performed By: #### L 500.2500 #### [facility] [address] [place], [address] Glucose [Mass/Vol] 95 mg/dL Normal 74-106 [facility] Comment on above: Performed By: #### L 500.2500 #### [facility] [address] [place], [address] Potassium [Moles/Vol] 4.0 mmol/L Normal 3.5-5.1 [facility] Comment on above: Performed By: #### L 500.2500 #### [facility] [address] [place], [address] Sodium [Moles/Vol] 138 mmol/L Normal 136-145 [facility] Comment on above: Performed By: #### L 500.2500 #### [facility] [address] [place], [address] T PROT 6.9 g/dL Normal 6.4-8.2 [facility] Comment on above: Performed By: #### L 500.2500 #### [facility] [address] [place], [address] Urea nitrogen [Mass/Vol] 17 mg/dL Normal 7-18 [facility] Comment on above: Performed By: #### L 500.2500 #### [facility] [address] [place], [address] Consultation - Surgicalon Consultation - [facility] Medical Records Department [address] [place] [address] Consultation - Surgical 09/14/24 1243 MR#: [id number] Acct: [id number] Name: ADINA ESCOBAR Rep #: [id number] : 1950 74 From: Paulo Umanzor MD PCP: Dr. Kentrell Dhaliwal MD Status:ADM IN Location: ICU [id number] Assessment Plan Assessment/Plan (1) Intractable abdominal pain: [...] Umanzor MD General Surgery Endocrine Surgery Pager: [facility] [address] [place] [address], [facility], [address] [place] [address] Office: [phone] HPI Consult Data Date of Consult: 09/14/24 HPI Narrative Reason for Consultation: Abdominal pain and concern for ileus HPI Narrative: ADINA ESCOBAR, is a 74 F who presents to [facility] with complaints of several days of left-sided [...] in respon (more content not included)... Normal [facility] H AND P Exam - Hospitaliston 09-14-2024 H&P Exam - Hospitalist [facility] Medical Records Department [address] [place] [address] H P Exam - Hospitalist 09/14/24 0348 MR#: [id number] Acct: [id number] Name: ADINA ESCOBAR Rep #: [id number] : 1950 74 From: Edmundo Peters DO PCP: Dr. Kentrell Dhaliwal MD Status:ADM IN Location: ICU [id number] HPI - General General Date of Admission: 09/14/24 [...] prn with patient followed chronically at the [facility] who presents to [facility] ER complaining of severe abdominal pain. Ms. [...] is expected to extend beyond 2 midnights. FORMERLY [facility] Medical History (Updated 09/14/24 @ [...] (From Levaquin) AdvReac Vomiting Verified 09/13/24 20:52 Osuzxbg-YZV-IiC Reductase AdvReac NEEDS Verifi (more content not included)... Normal [facility] L501.4020on 09-14-2024 TROPONIN-I HS 7 pg/mL Normal 3.0-54.0 [facility] Comment on above: Result Comment: Plea se Note: New Test Units and Gender Specific Reference Ranges. For more information see Policy Stat Procedure [place] High Sensitivity Troponin (TNIH) and attachments. Performed By: #### L 501.4020 #### [facility] [address] [place], [address] Lactic Acidon 09-14-2024 Lactate [Moles/Vol] 1.0 mmol/L Normal 0.4-1.9 [facility] Comment on above: Order Comment: Y Performed By: #### L 500.2500 #### [facility] [address] [place], [address] Lipaseon 09-14-2024 Lipase [Catalytic activity/Vol] 34 U/L Normal 13-75 [facility] Comment on above: Result Comment: Plea se note: LIPASE revised reference range effective 22. New Lipase methodology. Expected to produce lower values than the previous assay method. NEW Reference Range: 13 - 75 U/L Performed By: #### L 300.3900 #### [facility] [address] [place], [address] Lipase [Catalytic activity/Vol] 32 U/L Normal 13-75 [facility] Comment on above: Result Comment: Michael arreola note: LIPASE revised reference range effective 22. New Lipase methodology. Expected to produce lower values than the previous assay method. NEW Reference Range: 13 - 75 U/L Performed By: #### L 500.2500 #### [facility] [address] [place], [address] Lipid Profileon 09-14-2024 Cholesterol [Mass/Vol] 207 mg/dL High 200 [facility] [place] Comment on above: Result Comment: <200 mg/dL Desirable 200-240 mg/dL Borderline >240 mg/dL High Risk Performed By: #### L 300.3900 #### [facility] [address] [place], [address] Cholesterol in HDL [Mass/Vol] 60 mg/dL Normal [facility] Comment on above: Result Comment: The drugs N-Acetylcysteine and Metamizole may falsely depress this assay. Reference Range HDL <40 mg/dL Low HDL Cholesterol HDL >or= 60 mg/dL High HDL Cholesterol Performed By: #### L 300.3900 #### [facility] [address] [place], [address] Cholesterol in LDL [Mass/Vol] 132 mg/dL High 0-130 [facility] Comment on above: Performed By: #### L 300.3900 #### [facility] [address] [place], [address] Cholesterol in VLDL [Mass/Vol] 15 mg/dL Normal 5-40 [facility] Comment on above: Performed By: #### L 300.3900 #### [facility] [address] [place], [address] Triglyceride [Mass/Vol] 76 mg/dL Normal [facility] Comment on above: Result Comment: The drugs N-Acetylcysteine and Metamizole may falsely depress this assay. Serum Triglycerides Reference Interval Normal <150 mg/dL Borderline high 150 - 199 mg/dL High 200 - 499 mg/dL Very High > or = 500 mg/dL Performed By: #### L 300.3900 #### [facility] [address] [place], [address] Liver Profileon 09-14-2024 Albumin [Mass/Vol] 2.9 g/dL Low 3.2-5.0 [facility] Comment on above: Performed By: #### L 500.2500 #### [facility] [address] [place], [address] ALK P 87 U/L Normal 45-117 [facility] Comment on above: Performed By: #### L 500.2500 #### [facility] [address] [place], [address] ALT [Catalytic activity/Vol] 23 U/L Normal 13-56 [facility] Comment on above: Performed By: #### L 500.2500 #### [facility] [address] [place], [address] AST [Catalytic activity/Vol] 28 U/L Normal 15-37 [facility] Comment on above: Performed By: #### L 500.2500 #### [facility] [address] [place], [address] Bilirubin [Mass/Vol] 0.50 mg/dL Normal 0.20-1.00 [facility] Comment on above: Result Comment: For patients on eltrombopag therapy, use of Dimension [place] TBIL is not recommended. Performed By: #### L 500.2500 #### [facility] [address] [place], [address] Bilirubin.direct [Mass/Vol] 0.11 mg/dL Normal 0.00-0.30 [facility] Comment on above: Performed By: #### L 500.2500 #### [facility] [address] [place], [address] Globulin (S) [Mass/Vol] 3.6 g/dL Normal 2.2-4.2 [facility] Comment on above: Performed By: #### L 500.2500 #### [facility] [address] [place], [address] T PROT 6.5 g/dL Normal 6.4-8.2 [facility] Comment on above: Performed By: #### L 500.2500 #### [facility] [address] [place], [address] Magnesiumon 09-14-2024 Magnesium [Mass/Vol] 2.2 mg/dL Normal 1.6-2.6 [facility] Comment on above: Performed By: #### L 500.2500 #### [facility] [address] [place], [address] Phosphoruson 09-14-2024 Phosphate [Mass/Vol] 3.3 mg/dL Normal 2.5-4.9 [facility] Comment on above: Performed By: #### L 500.2500 #### [facility] [address] [place], [address] T4 Free Directon 09-14-2024 T4 FREE DIRECT 1.47 ng/dL High 0.76-1.46 [facility] Comment on above: Performed By: #### L 300.3900 #### [facility] [address] [place], [address] Thyroid Stim Hormone (TSH)on 09-14-2024 TSH 14.000 uIU/mL High 0.358-3.740 [facility] Comment on above: Performed By: #### L 501.4020 #### [facility] [address] [place], [address] Urinalysis, Completeon 12-29 -2024 BACTERIA RARE Normal None Seen [facility] Comment on above: Order Comment: CLEAN CATCH Performed By: #### L 400.0001 #### [facility] [address] [place], [address] EPI,SQUAMOUS 0-5 SEEN Normal 5-10 [facility] Comment on above: Order Comment: CLEAN CATCH Performed By: #### L 400.0001 #### [facility] [address] [facility] [address] EPI,TRANSITION 0-5 SEEN Normal 0-5 [facility] Comment on above: Order Comment: CLEAN CATCH Performed By: #### L 400.0001 #### [facility] [address] [place], [address] RBC 0-5 SEEN Normal 0-5 [facility] Comment on above: Order Comment: CLEAN CATCH Performed By: #### L 400.0001 #### [facility] [address] [place], [address] WBC 0-5 SEEN Normal 0-5 [facility] Comment on above: Order Comment: CLEAN CATCH Performed By: #### L 400.0001 #### [facility] [address] [place], [address] 12 Lead EKGon 09-13-2024 12 Lead EKG [facility] Cardiovascular Services [address] [place] [address] 12 Lead EKG 09/13/242054 MR#: [id number] Acct: [id number] Name: ADINA ESCOBAR Rep #: [id number] : 1950 74 From: Heron Jane MD Attending Dr: Dr. Heriberto Bartholomew MD Status: ADM IN Ordering Dr: Mike [...] Borderline ECG Confirmed by KARISSA KAPADIA, HERON ([id number]), general expeditor AMADOR CAMPOS ([id number]) on 09/15/2024 8:41:40 AM Referred By: ES Confirmed By: HERON JANE MD 09/15/24 08 Date Heron Jane MD CC: Dr. Mike Fraser DO; Dr. Heriberto Bartholomew MD; Dr. Kentrell Dhaliwal MD Signed Normal [facility] Basic Metabolic Profile (BMP )on 09-13-2024 BUN/CRE 15.5 RATIO Normal 10-20 [facility] Comment on above: Order Comment: 1Y Performed By: #### L 500.2500 #### [facility] [address] [place], [address] CA,Total 9.4 mg/dL Normal 8.5-10.1 [facility] Comment on above: Order Comment: 1Y Performed By: #### L 500.2500 #### [facility] [address] [place], [address] Chloride [Moles/Vol] 106 mmol/L Normal 98-107 [facility] Comment on above: Order Comment: 1Y Performed By: #### L 500.2500 #### [facility] [address] [place], [address] CO2 [Moles/Vol] 23.0 mmol/L Normal 21.0-32.0 [facility] Comment on above: Order Comment: 1Y Performed By: #### L 500.2500 #### [facility] [address] [place], [address] Creatinine [Mass/Vol] 1.16 mg/dL High 0.55-1.02 [facility] Comment on above: Order Comment: 1Y Result Comment: The validity of the calculated GFR GFRAA in patients over 70 years has not been determined. Clinical correlation is essential. Performed By: #### L 500.2500 #### [facility] [address] [place], [address] ECRCL 36.88 ml/min Normal [facility] Comment on above: Order Comment: 1Y Performed By: #### L 500.2500 #### [facility] [address] [place], [address] EST GFR - AA 59 mL/min Low >60 [facility] Comment on above: Order Comment: 1Y Result Comment: Afri can [place] GFR Calc Performed By: #### L 500.2500 #### [facility] [address] [place], [address] GAP 9 Normal 5-15 [facility] Comment on above: Order Comment: 1Y Performed By: #### L 500.2500 #### [facility] [address] [place], [address] GFR/1.73 sq M.predicted among non-blacks MDRD (S/P/Bld) [Vol rate/Area] 49 mL/min/{1.73_m2} Low >60 [facility] Comment on above: Order Comment: 1Y Result Comment: Non- GFR Calc Performed By: #### L 500.2500 #### [facility] [address] [place], [address] Glucose [Mass/Vol] 105 mg/dL Normal 74-106 [facility] Comment on above: Order Comment: 1Y Result Comment: Fast ing Glucose result from 100 to 125 mg/dL suggests IMPAIRED HOMEOSTASIS per A.D.A. criteria. Performed By: #### L 500.2500 #### [facility] [address] [place], [address] Potassium [Moles/Vol] 4.3 mmol/L Normal 3.5-5.1 [facility] Comment on above: Order Comment: 1Y Performed By: #### L 500.2500 #### [facility] [address] [place], [address] Sodium [Moles/Vol] 138 mmol/L Normal 136-145 [facility] Comment on above: Order Comment: 1Y Performed By: #### L 500.2500 #### [facility] [address] [place], [address] Urea nitrogen [Mass/Vol] 18 mg/dL Normal 7-18 [facility] Comment on above: Order Comment: 1Y Performed By: #### L 500.2500 #### [facility] [address] [place], [address] CBC W/Diff, Automatedon 12-2 8-2023 Absolute Lymph 3.02 X10 3/uL Normal 0.83-4.51 [facility] Comment on above: Performed By: #### L 500.2500 #### [facility] [address] [place], [address] Absolute Neut 7.2 X10 3/uL Normal 2.0-7.7 [facility] Comment on above: Performed By: #### L 500.2500 #### [facility] [address] [place], [address] Basophils/100 WBC (Bld) 0.9 % Normal 0-1 [facility] Comment on above: Performed By: #### L 500.2500 #### [facility] [address] [place], [address] Eosinophils/100 WBC (Bld) 2.0 % Normal 0-5 [facility] Comment on above: Performed By: #### L 500.2500 #### [facility] [address] [place], [address] Erythrocyte distribution width (RBC) [Ratio] 13.0 % Normal 11.6-14.6 [facility] Comment on above: Performed By: #### L 500.2500 #### [facility] [address] [place], [address] Hematocrit (Bld) [Volume fraction] 38.2 % Normal 37-47 [facility] Comment on above: Performed By: #### L 500.2500 #### [facility] [address] [place], [address] Hemoglobin (Bld) [Mass/Vol] 12.6 g/dL Normal 12.0-15.0 [facility] Comment on above: Performed By: #### L 500.2500 #### [facility] [address] [place], [address] IG% 0.600 Normal 0.0-0.9 [facility] Comment on above: Result Comment: IG% - Immature Granulocytes (promyelocytes, myelocytes and metamyelocytes) > 1% indicates that a LEFT SHIFT is Present. Performed By: #### L 500.2500 #### [facility] [address] [place], [address] Lymphocytes/100 WBC (Bld) 26.9 % Normal 19-41 [facility] Comment on above: Performed By: #### L 500.2500 #### [facility] [address] [place], [address] MCH (RBC) [Entitic mass] 30.2 pg Normal 27.0-32.0 [facility] Comment on above: Performed By: #### L 500.2500 #### [facility] [address] [place], [address] MCHC (RBC) [Mass/Vol] 33.0 g/dL Normal 32-36 [facility] Comment on above: Performed By: #### L 500.2500 #### [facility] [address] [place], [address] MCV (RBC) [Entitic vol] 91.6 fL Normal 81-99 [facility] Comment on above: Performed By: #### L 500.2500 #### [facility] [address] [place], [address] Monocytes/100 WBC (Bld) 5.6 % Normal 0-10 [facility] Comment on above: Performed By: #### L 500.2500 #### [facility] [address] [place], [address] Neutrophils/100 WBC (Bld) 64.0 % Normal 47-70 [facility] Comment on above: Performed By: #### L 500.2500 #### [facility] [address] [place], [address] Nucleated RBC (Bld) [#/Vol] 0 10*3/uL Normal 0-5 [facility] Comment on above: Performed By: #### L 500.2500 #### [facility] [address] [place], [address] Platelet mean volume (Bld) [Entitic vol] 9.3 fL Normal 6.2-12.0 [facility] Comment on above: Performed By: #### L 500.2500 #### [facility] [address] [place], [address] Platelets (Bld) [#/Vol] 498 10*3/uL High 150-450 [facility] Comment on above: Performed By: #### L 500.2500 #### [facility] [address] [place], [address] RBC (Bld) [#/Vol] 4.17 10*6/uL Low 4.2-5.4 [facility] Comment on above: Performed By: #### L 500.2500 #### [facility] [address] [place], [address] RDW SD 43.3 fl Normal 35.1-43.9 [facility] Comment on above: Performed By: #### L 500.2500 #### [facility] [address] [place], [place], [address] WBC (Bld) [#/Vol] 11.2 10*3/uL High 4.4-11.0 [facility] Comment on above: Performed By: #### L 500.2500 #### [facility] [address] [place], [address] CTA Chst, Abd, Pel W and/or WOon 09-13-2024 CTA Chst, Abd, Pel W and/or WO [facility] Imaging Services [address] [place] [address] CTA Chst, Abd, Pel W and/or WO MR#: [id number] Acct: [id number] Name: ADINA ESCOBAR Rep #: [id number] : 1950 F 74 From: Halina Escoto PCP: Dr. Kentrell Dhaliwal MD Status: [facility] Study: CTA Chst, Abd, Pel W and/or WO Date of Exam: 11/14/23 Exam# [id number] Ordering Dr: Mike Fraser DO [id number] INDICATION: Chest pain, abdominal pain EXAMINATION: CTA [...] Signed: Halina Park MD at 22:54 EST , CC: Dr. Mike Fraser DO; Dr. Kentrell Dhaliwal MD Migrant Leader: Signed Normal [facility] Emergency Department Summary on 09-13-2024 Emergency Department Summary [facility] Medical Records Department [address] [place] [address] Emergency Department Summary 09/13/24 MR#: [id number] Acct: [id number] Name: ADINA ESCOBAR Rep #: [id number] : 1950 74 From: Mike Fraser DO PCP: Dr. Kentrell Dhaliwal MD Status:ADM IN Location: ICU [id number] HPI History of Present Illness Chief Complaint: [...] back. Patient also admits to a headache. [facility] Medical History (Updated 09/14/24 @ 04:23 by [...] (From Levaquin) AdvReac Vomiting Verified 09/13/24 20:52 Yvyrikm-EZH-BpI Reductase AdvReac NEEDS Verified 09/13/24 20:52 Inhibitor [...] Denies ab (more content not included)... Normal [facility] L501.5425on 09-13-2024 TROPONIN-I HS 8 pg/mL Normal 3.0-54.0 [facility] Comment on above: Order Comment: 1Y Result Comment: Michael arreola Note: New Test Units and Gender Specific Reference Ranges. For more information see Policy Stat Procedure [place] High Sensitivity Troponin (TNIH) and attachments. Performed By: #### L 300.3900 #### [facility] [address] [place], [address] Prothrombin Time w/INRon INR Coag (PPP) [Relative time] 1.0 {INR} Normal [facility] Comment on above: Performed By: #### L 501.4020 #### [facility] [address] [place], [address] PT Coag (PPP) [Time] 13.6 s Normal 11.7-14.9 [facility] Comment on above: Performed By: #### L 501.4020 #### [facility] [address] [place], [address] Urinalysis, Completeon 09-13 Mucus Ql (Urine sed) 0 SEEN Normal [facility] Comment on above: Order Comment: CLEAN CATCH Performed By: #### L 400.0001 #### [facility] [address] [place], [address] UR Preservative No Preservative Normal [facility] Comment on above: Order Comment: CLEAN CATCH Result Comment: ANAL YZER ERROR Performed By: #### L 400.0001 #### [facility] [address] [place], [address] BILIRUBIN URINE Negative Normal Negative [facility] Comment on above: Order Comment: CLEAN CATCH Result Comment: ANAL YZER ERROR Performed By: #### L 400.0001 #### [facility] [address] [place], [address] Clarity (U) Sl. Cloudy Normal Clear [facility] Comment on above: Order Comment: CLEAN CATCH Result Comment: ANAL YZER ERROR Performed By: #### L 400.0001 #### [facility] [address] [place], [address] Color (U) Yellow Normal Yellow [facility] Comment on above: Order Comment: CLEAN CATCH Result Comment: ANAL YZER ERROR Performed By: #### L 400.0001 #### [facility] [address] [place], [address] GLUCOSE, UR Normal Normal Normal [facility] Comment on above: Order Comment: CLEAN CATCH Result Comment: ANAL YZER ERROR Performed By: #### L 400.0001 #### [facility] [address] [place], [address] KETONE UR Negative Normal Negative [facility] Comment on above: Order Comment: CLEAN CATCH Result Comment: ANAL YZER ERROR Performed By: #### L 400.0001 #### [facility] [address] [place], [address] LEUK ESTERASE 500 /ul Abnormal Negative [facility] Comment on above: Order Comment: CLEAN CATCH Result Comment: ANAL YZER ERROR Performed By: #### L 400.0001 #### [facility] [address] [place], [address] Nitrite Ql (U) Negative Normal Negative [facility] Comment on above: Order Comment: CLEAN CATCH Result Comment: ANAL YZER ERROR Performed By: #### L 400.0001 #### [facility] [address] [place], [address] OCCULT BLOOD-UR 10 /ul Abnormal Negative [facility] Comment on above: Order Comment: CLEAN CATCH Result Comment: ANAL YZER ERROR Performed By: #### L 400.0001 #### [facility] [address] [place], [address] pH UR 7.0 Normal 5.0 - 8.0 [facility] Comment on above: Order Comment: CLEAN CATCH Result Comment: ANAL YZER ERROR Performed By: #### L 400.0001 #### [facility] [address] [place], [address] PROT DIPSTX Negative Normal Negative [facility] Comment on above: Order Comment: CLEAN CATCH Result Comment: ANAL YZER ERROR Performed By: #### L 400.0001 #### [facility] [address] [place], [address] SP.GR. DIPSTX 1.010 Normal 1.002-1.030 [facility] Comment on above: Order Comment: CLEAN CATCH Result Comment: ANAL YZER ERROR Performed By: #### L 400.0001 #### [facility] [address] [place], [address] UROBILI Normal Normal Normal [facility] Comment on above: Order Comment: CLEAN CATCH Result Comment: ANAL YZER ERROR Performed By: #### L 400.0001 #### [facility] [address] [place], [address] BACTERIA 0 SEEN Normal None Seen [facility] Comment on above: Order Comment: CLEAN CATCH Result Comment: ANAL YZER ERROR Performed By: #### L 400.0001 #### [facility] [address] [place], [address] EPI,SQUAMOUS 0 SEEN Normal 5-10 [facility] Comment on above: Order Comment: CLEAN CATCH Result Comment: ANAL YZER ERROR Performed By: #### L 400.0001 #### [facility] [address] [place], [address] Mucus Ql (Urine sed) 0 SEEN Normal [facility] Comment on above: Order Comment: CLEAN CATCH Result Comment: ANAL YZER ERROR Performed By: #### L 400.0001 #### [facility] [address] [place], [address] RBC 0 SEEN Normal 0-5 [facility] Comment on above: Order Comment: CLEAN CATCH Result Comment: ANAL YZER ERROR Performed By: #### L 400.0001 #### [facility] [address] [place], [address] WBC 0 SEEN Normal 0-5 [facility] Comment on above: Order Comment: CLEAN CATCH Result Comment: ANAL YZER ERROR Performed By: #### L 400.0001 #### [facility] [address] [place], [address] [facility] ADINA ESCOBAR I ([id number]) 1950 F Date Time Provider Department 09/11/24 KENTRELL DHALIWAL II [facility] During your visit today, we recorded the following information about you: Estelita Lomeli 09/11/2024 3:28 PM Signed Patient calls She said her left ear is painful. No seeping. No fever. Started today. She asked if something can be sent in. Thank you. [phone] Kentrell Dhaliwal II, MD 09/12/2024 6:03 PM [...] GI Upset PROPOXYPHENE 06/23/2015 16 - Unknown TAHHUTJ-JAO-FPH REDUCTASE INHIBIT*06/22/2020 6 - Diarrhea 5 - [...] 8 hours as needed for nausea/vomiting. - gyvajgugft-jiclhjwp-bvcjet itzel (BREZTRI AEROSPHERE) 160-9-4.8 mcg/actuation HFA aerosol [...] Small bowel obst (more content not included)... [facility] 09-03-[address] [facility] Office Visit (FPUPDV ) -- ADINA ESCOBAR I ([id number]) 1950 F Date Time Provider Department 09/03/24 4:00 PM KENTRELL DHALIWAL II UPDV During your visit today, we recorded the following information about you: Pulse Blood pressure Weight Height 83/minute 150/80 69.9 kg 1.549 m Kentrell Dhaliwal II, MD 09/21/2024 3:43 PM Signed Kentrell Dhaliwal II, MD [address], [place] [id number] SUBJECTIVE Adina Escobar is a 74 year [...] [Cefdinir] Diarrhea Prednisone GI Upset Propoxyphene Unknown Eytkdmi-Dqe-Atx Red* Diarrhea, Intolerance Sulfa (Sulfonamide * Other: [...] tablet by mouth (more content not included)... [facility] 08-28-2024 [facility] Telephone (FPUPDV) -- ADINA ESCOBAR I ([id number]) 1950 F Date Time Provider Department 08/28/24 KENTRELL DHALIWAL II FPUPDV During your visit today, we recorded the following information about you: Mari Platt 08/28/2024 1:05 PM Signed Patient calls today. Reason for Call: Adina called requesting a refill on alprazolam. She uses [facility] in [place] [phone] (home) [phone] (cell) Patient last appointment: 08/19/2024 Mari Platt Allergies As of Date: 08/28/2024 Noted Allergy Reaction LATEX 06/22/2020 10 - Anaphylaxis ABILIFY (ARIPIPRAZOLE) 04/19/2022 14 - Other: See Comments Comments: Muscles couldn't get up CODEINE 06/22/2020 6 - Diarrhea COMPAZINE (PROCHLORPERAZINE) 06/22/2020 17 - Myalgia LEVAQUIN (LEVOFLOXACIN) 06/22/2020 6 - Diarrhea OMNICEF (CEFDINIR) 06/22/2020 6 - Diarrhea PREDNISONE 08/30/2021 8 - GI Upset PROPOXYPHENE 06/23/2015 16 - Unknown EHPZJFZ-BED-TRU REDUCTASE INHIBIT*06/22/2020 6 - Diarrhea 5 - [...] 8 hours as needed for nausea/vomiting. - fwptnugnit-rurzjgch-igdmsv itzel (BREZTRI AEROSPHERE) 160-9-4.8 mcg/actuation HFA aerosol [...] obstruction) (HCC) [K56. (more content not included)... [facility] 08-19-2024 [facility] Telephone (FPUPDV) -- ADINA ESCOBAR I ([id number]) 1950 F Date Time Provider Department 08/19/24 KENTRELL DHALIWAL II FPUPDV During your visit today, we recorded the following information about you: Patience Choi 08/19/2024 1:33 PM Addendum [facility] CALLED TO MENTION THAT PATIENT IS WISHING TO BE SCHEDULED FOR DENTAL PROCEDURE BY WEEK'S END. HER DENTIST WILL BE LEAVING BY WEEK'S END PATIENT WILL HAVE TO BE OFF BLOOD THINNERS VERY SOON IN ORDER TO BE SCHEDULED BEFORE HER DENTIST LEAVES. ASKING IF OFFICE CAN CALL [phone], OPTION 2 (ASK FOR BRISTON) TO ADVISE [...] PM Signed Faxed surgical clearance form to [facility]. Husam Grant MA Allergies As of Date: 08/19/2024 Noted Allergy Reaction LATEX 06/22/2020 10 - Anaphylaxis ABILIFY (ARIPIPRAZOLE) 04/19/2022 14 - Other: See Comments Comments: Muscles couldn't get up CODEINE 06/22/2020 6 - Diarrhea COMPAZINE (PROCHLORPERAZINE) 06/22/2020 17 - Myalgia LEVAQUIN (LEVOFLOXACIN) 06/22/2020 6 - Diarrhea OMNICEF (CEFDINIR) 06/22/2020 6 - Diarrhea PREDNISONE 08/30/2021 8 - GI Upset PROPOXYPHENE 06/23/2015 16 - Unknown VSLSDQV-ERQ-TJZ REDUCTASE INHIBIT*06/22/2020 6 - Diarrhea 5 - [...] 8 hours as needed for nausea/vomiting. - hgvuddmkjz-hyetcwcx-pgvkvz itzel (BREZTRI AEROSPHERE) 160-9-4.8 mcg/actuation HFA aerosol [...] As Of Date (more content not included)... [facility] 08-12-2024 [facility] Telephone (FPUPDV) -- ADINA ESCOBAR I ([id number]) 1950 F Date Time Provider Department 08/12/24 KENTRELL DHALIWAL II SUSANDV During your visit today, we recorded the [...] GI Upset PROPOXYPHENE 06/23/2015 16 - Unknown UJSVXOF-UJS-WPY REDUCTASE INHIBIT*06/22/2020 6 - Diarrhea 5 - Intolerance SULFA (SULFONAMIDE ANTIBIOTICS) 06/15/2020 14 - Other: See Comments Comments: Leg pain SHELLFISH CONTAINING PRODUCTS 11/29/2012 7 - Swelling Date Reviewed: 07/12/2024 Reviewed by: Kentrell Dhaliwal II, MD - Fully Assessed Reason for Visit: Patient Question [7062] Visit Diagnosis:Anxiety and depression [F41.9, F32.A] Order(s):busPIRone [...] 8 hours as needed for nausea/vomiting. - nwxegdfeqc-flwupezu-hnjdox itzel (BREZTRI AEROSPHERE) 160-9-4.8 mcg/actuation HFA aerosol [...] [F41.9, F32.A] Hypo (more content not included)... [facility] 08-11-2024 [facility] Telephone (FPUPDV) -- ADINA ESCOBAR I ([id number]) 1950 F Date Time Provider Department 08/11/24 KENTRELL DHALIWAL II UPDV During your visit today, we recorded the following information about you: Husam Grant MA 08/11/2024 12:06 PM Signed Patient called office in regards to be at the dentists office. Patient stated that she is getting a tooth extracted and has yanelis off the coumadin for a week. Dental litigation legal assistant asked if a week was long enough for being off coumadin. Went back asked Dr Dhaliwal if a week is long enough to be off the coumadin and per Dr Dhaliwal yes. Informed dental litigation legal assistant per Dr Dhaliwal yes a week is long enough to bee off coumadin. Dental litigation legal assistant stated thank you. LISA JuniormanBrittney 08/19/2024 1:14 PM Signed Briston from [facility] calls to speak with someone in the office in regards to this patient. Call was transferred to [facility] Allergies As of Date: 08/11/2024 Noted Allergy Reaction LATEX 06/22/2020 10 - Anaphylaxis ABILIFY (ARIPIPRAZOLE) 04/19/2022 14 - Other: See Comments Comments: Muscles couldn't get up CODEINE 06/22/2020 6 - Diarrhea COMPAZINE (PROCHLORPERAZINE) 06/22/2020 17 - Myalgia LEVAQUIN (LEVOFLOXACIN) 06/22/2020 6 - Diarrhea OMNICEF (CEFDINIR) 06/22/2020 6 - Diarrhea PREDNISONE 08/30/2021 8 - GI Upset PROPOXYPHENE 06/23/2015 16 - Unknown UVNKOGS-PDU-UJL REDUCTASE INHIBIT*06/22/2020 6 - Diarrhea 5 - Intolerance SULFA (SULFONAMIDE ANTIBIOTICS) 06/15/2020 14 - Other: See Comments Comments: Leg pain SHELLFISH CONTAINING PRODUCTS 11/29/2012 7 - Swelling Date Reviewed: 07/12/2024 Reviewed by: Kentrell Dhaliwal II, MD - Fully Assessed Reason for Visit: Patient Question [9157] Prescriptions as of 08/19/2024 - busPIRone (BUSPAR) [...] 8 hours as needed for nausea/vomiting. - vhcgxjsomq-llshwubm-woyvnf itzel (BREZTRI AEROSPHERE) 160-9-4.8 mcg/actuation HFA aerosol [...] (more content not included)... [facility] 12 Lead EKGon 08-01-2024 12 Lead EKG [facility] Cardiovascular Services [address] [place] [address] 12 Lead EKG 08/01/24 1344 MR#: [id number] Acct: [id number] Name: ADINA ESCOBAR Rep #: [id number] : 1950 74 From: Cira Andersen MD [...] rhythm Normal ECG Confirmed by SEAN KAPADIA, LILIAN ([id number]), general expeditor ROGERS OCHOA ([id number]) on 08/05/2024 8:03:18 AM Referred By: Confirmed By: LILIAN ANDERSEN MD 08/05/24 0803 Date Cira Andersen MD CC: Dr. Samson Gan DO; Dr. Kentrell Dhaliwal MD Signed Normal [facility] Abdomen/Pelvis W IV Cont ONL Yon 08-01-2024 Abdomen/Pelvis W IV Cont ONLY [facility] Imaging Services [address] [place] [address] Abdomen/Pelvis W IV Cont ONLY MR#: [id number] Acct: [id number] Name: ADINA ESCOBAR Rep #: [id number] : 1950 F 74 From: Lex Borrero MD PCP: Dr. Kentrell Dhaliwal MD Status: REG ER Study: Abdomen/Pelvis W IV Cont ONLY Date of Exam: Exam# [id number] Ordering Dr: Samson Gan DO [id number] INDICATION: Abdominal pain, history of cholecystectomy, appendectomy, [...] Signed: Lex Borrero MD at 16:13 EST , CC: Dr. Samson Gan, DO; Dr. Kentrell Dhaliwal MD Migrant Leader: Signed Normal [facility] BNP,B-Type NATRIURETIC PEPTI Karen 08-01-2024 Natriuretic peptide B (Bld) [Mass/Vol] 243.6 pg/mL High 0-100 [facility] Comment on above: Performed By: #### L 300.3900 #### [facility] [address] [place], [address] CBC W/Diff, Automatedon 07-18 Absolute Lymph 3.18 X10 3/uL Normal 0.83-4.51 [facility] Comment on above: Performed By: #### L 300.3900 #### [facility] [address] [place], [address] Absolute Neut 3.7 X10 3/uL Normal 2.0-7.7 [facility] Comment on above: Performed By: #### L 300.3900 #### [facility] [address] [place], [address] Basophils/100 WBC (Bld) 0.8 % Normal 0-1 [facility] Comment on above: Performed By: #### L 300.3900 #### [facility] [address] [place], [address] Eosinophils/100 WBC (Bld) 2.5 % Normal 0-5 [facility] Comment on above: Performed By: #### L 300.3900 #### [facility] [address] [place], [address] Erythrocyte distribution width (RBC) [Ratio] 13.4 % Normal 11.6-14.6 [facility] Comment on above: Performed By: #### L 300.3900 #### [facility] [address] [place], [address] Hematocrit (Bld) [Volume fraction] 31.7 % Low 37-47 [facility] Comment on above: Performed By: #### L 300.3900 #### [facility] [address] [place], [address] Hemoglobin (Bld) [Mass/Vol] 10.3 g/dL Low 12.0-15.0 [facility] Comment on above: Performed By: #### L 300.3900 #### [facility] [address] [place], [address] IG% 0.500 Normal 0.0-0.9 [facility] Comment on above: Result Comment: IG% - Immature Granulocytes (promyelocytes, myelocytes and metamyelocytes) > 1% indicates that a LEFT SHIFT is Present. Performed By: #### L 300.3900 #### [facility] [address] [place], [address] Lymphocytes/100 WBC (Bld) 40.0 % Normal 19-41 [facility] Comment on above: Performed By: #### L 300.3900 #### [facility] [address] [place], [address] MCH (RBC) [Entitic mass] 31.0 pg Normal 27.0-32.0 [facility] Comment on above: Performed By: #### L 300.3900 #### [facility] [address] [place], [address] MCHC (RBC) [Mass/Vol] 32.5 g/dL Normal 32-36 [facility] Comment on above: Performed By: #### L 300.3900 #### [facility] [address] [place], [address] MCV (RBC) [Entitic vol] 95.5 fL Normal 81-99 [facility] Comment on above: Performed By: #### L 300.3900 #### [facility] [address] [place], [address] Monocytes/100 WBC (Bld) 9.3 % Normal 0-10 [facility] Comment on above: Performed By: #### L 300.3900 #### [facility] [place], [address] Neutrophils/100 WBC (Bld) 46.9 % Low 47-70 [facility] Comment on above: Performed By: #### L 300.3900 #### [facility] [address] [place], [address] Nucleated RBC (Bld) [#/Vol] 0 10*3/uL Normal 0-5 [facility] Comment on above: Performed By: #### L 300.3900 #### [facility] [address] [place], [address] Platelet mean volume (Bld) [Entitic vol] 9.7 fL Normal 6.2-12.0 [facility] Comment on above: Performed By: #### L 300.3900 #### [facility] [address] [place], [address] Platelets (Bld) [#/Vol] 326 10*3/uL Normal 150-450 [facility] Comment on above: Performed By: #### L 300.3900 #### [facility] [address] [place], [address] RBC (Bld) [#/Vol] 3.32 10*6/uL Low 4.2-5.4 [facility] Comment on above: Performed By: #### L 300.3900 #### [facility] [address] [place], [address] RDW SD 47.4 fl High 35.1-43.9 [facility] Comment on above: Performed By: #### L 300.3900 #### [facility] [address] [place], [address] WBC (Bld) [#/Vol] 8.0 10*3/uL Normal 4.4-11.0 [facility] Comment on above: Performed By: #### L 300.3900 #### [facility] [address] [place], [address] Chest PA and Lateralon 08-01 Chest PA and Lateral [facility] Imaging Services [address] [place] [address] Chest PA and Lateral MR#: [id number] Acct: [id number] Name: ADINA ESCOBAR Rep #: [id number] : 1950 F 74 From: Lxe Borrero MD PCP: Dr. Kentrell Dhaliwal MD Status: [facility] ER Study: Chest PA and Lateral Date of Exam: 08/01/24 Exam# [id number] Ordering Dr: Samson Gan DO [id number] INDICATION: Edema EXAMINATION/TECHNIQUE: X-RAY - XR Chest [...] Signed: Lex Borrero MD at 15:49 EST Reading Location ID and State: [facility] / [place] Tel , Service support , CC: Dr. Samson Gan, DO; Dr. Kentrell Dhaliwal MD Migrant Leader: Signed Normal [facility] Comprehensive Metabolic Prof ilon 08-01-2024 Albumin [Mass/Vol] 3.2 g/dL Normal 3.2-5.0 [facility] Comment on above: Order Comment: 'TROP ' Serial specimen #1, #2 or #3: 1 Performed By: #### L 300.3900 #### [facility] [address] [place], [address] Albumin/Globulin [Mass ratio] 0.9 {ratio} Normal 0.9-2.4 [facility] Comment on above: Order Comment: 'TROP ' Serial specimen #1, #2 or #3: 1 Performed By: #### L 300.3900 #### [facility] [address] [place], [address] ALK P 86 U/L Normal 45-117 [facility] Comment on above: Order Comment: 'TROP ' Serial specimen #1, #2 or #3: 1 Performed By: #### L 300.3900 #### [facility] [address] [place], [address] ALT [Catalytic activity/Vol] 20 U/L Normal 13-56 [facility] Comment on above: Order Comment: 'TROP ' Serial specimen #1, #2 or #3: 1 Performed By: #### L 300.3900 #### [facility] [address] [place], [address] AST [Catalytic activity/Vol] 26 U/L Normal 15-37 [facility] Comment on above: Order Comment: 'TROP ' Serial specimen #1, #2 or #3: 1 Performed By: #### L 300.3900 #### [facility] [address] [place], [address] Bilirubin [Mass/Vol] 0.40 mg/dL Normal 0.20-1.00 [facility] Comment on above: Order Comment: 'TROP ' Serial specimen #1, #2 or #3: 1 Result Comment: For patients on eltrombopag therapy, use of Dimension [place] TBIL is not recommended. Performed By: #### L 300.3900 #### [facility] [address] [place], [address] BUN/CRE 16.5 RATIO Normal 10-20 [facility] Comment on above: Order Comment: 'TROP ' Serial specimen #1, #2 or #3: 1 Performed By: #### L 300.3900 #### [facility] [address] [place], [address] CA,Total 8.4 mg/dL Low 8.5-10.1 [facility] Comment on above: Order Comment: 'TROP ' Serial specimen #1, #2 or #3: 1 Performed By: #### L 300.3900 #### [facility] [address] [place], [address] Chloride [Moles/Vol] 109 mmol/L High 98-107 [facility] Comment on above: Order Comment: 'TROP ' Serial specimen #1, #2 or #3: 1 Performed By: #### L 300.3900 #### [facility] [address] [place], [address] CO2 [Moles/Vol] 28.0 mmol/L Normal 21.0-32.0 [facility] Comment on above: Order Comment: 'TROP ' Serial specimen #1, #2 or #3: 1 Performed By: #### L 300.3900 #### [facility] [address] [place], [address] Creatinine [Mass/Vol] 1.03 mg/dL High 0.55-1.02 [facility] Comment on above: Order Comment: 'TROP ' Serial specimen #1, #2 or #3: 1 Result Comment: The validity of the calculated GFR GFRAA in patients over 70 years has not been determined. Clinical correlation is essential. Performed By: #### L 300.3900 #### [facility] [address] [place], [address] EST GFR - AA 68 mL/min Normal >60 [facility] Comment on above: Order Comment: 'TROP ' Serial specimen #1, #2 or #3: 1 Result Comment: Afri can [place] GFR Calc Performed By: #### L 300.3900 #### [facility] [address] [place], [address] GAP 2 Low 5-15 [facility] Comment on above: Order Comment: 'TROP ' Serial specimen #1, #2 or #3: 1 Performed By: #### L 300.3900 #### [facility] [address] [place], [address] GFR/1.73 sq M.predicted among non-blacks MDRD (S/P/Bld) [Vol rate/Area] 56 mL/min/{1.73_m2} Low >60 [facility] Comment on above: Order Comment: 'TROP ' Serial specimen #1, #2 or #3: 1 Result Comment: Non- GFR Calc Performed By: #### L 300.3900 #### [facility] [address] [place], [address] Globulin (S) [Mass/Vol] 3.6 g/dL Normal 2.2-4.2 [facility] Comment on above: Order Comment: 'TROP ' Serial specimen #1, #2 or #3: 1 Performed By: #### L 300.3900 #### [facility] [address] [place], [address] Glucose [Mass/Vol] 92 mg/dL Normal 74-106 [facility] Comment on above: Order Comment: 'TROP ' Serial specimen #1, #2 or #3: 1 Performed By: #### L 300.3900 #### [facility] [address] [place], [address] Potassium [Moles/Vol] 4.6 mmol/L Normal 3.5-5.1 [facility] Comment on above: Order Comment: 'TROP ' Serial specimen #1, #2 or #3: 1 Performed By: #### L 300.3900 #### [facility] [address] [place], [address] Sodium [Moles/Vol] 139 mmol/L Normal 136-145 [facility] Comment on above: Order Comment: 'TROP ' Serial specimen #1, #2 or #3: 1 Performed By: #### L 300.3900 #### [facility] [address] [place], [address] T PROT 6.8 g/dL Normal 6.4-8.2 [facility] Comment on above: Order Comment: 'TROP ' Serial specimen #1, #2 or #3: 1 Performed By: #### L 300.3900 #### [facility] [address] [place], [address] Urea nitrogen [Mass/Vol] 17 mg/dL Normal 7-18 [facility] Comment on above: Order Comment: 'TROP ' Serial specimen #1, #2 or #3: 1 Performed By: #### L 300.3900 #### [facility] [address] 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 She states that she is periodically [...] tunnel Skin: Warm, dry, no rash PFSH PFSH Medical History Anxiety and depression [...] Time cefdinir (From Omnicef) Allergy Hives Verified 08/01/24 12:44 codeine Allergy NEEDS Verified 08/01/24 12:44 FOLLOW-UP latex Allergy Anaphylaxis Verified 08/01/24 12:44 prochlorperazine (From Allergy NEEDS Verified 08/01/24 12:44 Compazine) FOLLOW-UP shellfish derived Allergy Anaphylaxis Verified 08/01/24 12:44 levofloxacin (From Levaquin) AdvReac Vomiting Verified 08/01/24 12:44 Gjjtzsr-LDA-ZzI Reductase AdvReac NEEDS Verified 08/01/24 12:44 Inhibitor FOLLOW-UP Family History (Updated 03/16/23 @ 06:[address] Jessica Thomas MD) Mother Heart disease COPD (chronic obstructive pulmonary disease) Father Heart disease Hypertension CAD (coronary artery disease) Myocardial infarction Surgical History History of appendectomy History of cholecystectomy History of colon surgery History of total abdominal hysterectomy Social History ... Normal [facility] L501.4020on 08-01-2024 TROPONIN-I HS 3 pg/mL Normal 3.0-54.0 [facility] Comment on above: Order Comment: 'TROP ' Serial specimen #1, #2 or #3: 1 Result Comment: Plea se Note: New Test Units and Gender Specific Reference Ranges. For more information see Policy Stat Procedure [place] High Sensitivity Troponin (TNIH) and attachments. Performed By: #### L 300.3900 #### [facility] [address] [place], [address] Lipaseon 08-01-2024 Lipase [Catalytic activity/Vol] 28 U/L Normal 13-75 [facility] Comment on above: Order Comment: 'TROP ' Serial specimen #1, #2 or #3: 1 Result Comment: Plea se note: LIPASE revised reference range effective 22. New Lipase methodology. Expected to produce lower values than the previous assay method. NEW Reference Range: 13 - 75 U/L Performed By: #### L 300.3900 #### [facility] [address] [place], [address] T4 Free Directon 08-01-2024 T4 FREE DIRECT 1.01 ng/dL Normal 0.76-1.46 [facility] Comment on above: Order Comment: 'TROP ' Serial specimen #1, #2 or #3: 1 Performed By: #### L 300.3900 #### [facility] [address] [place], [address] Thyroid Stim Hormone (TSH)on 08-01-2024 TSH 4.320 uIU/mL High 0.358-3.740 [facility] Comment on above: Order Comment: 'TROP ' Serial specimen #1, #2 or #3: 1 Performed By: #### L 300.3900 #### [facility] [address] [place], [address] Urinalysis, Completeon 08-01 EPI,SQUAMOUS 0-5 SEEN Normal 5-10 [facility] Comment on above: Order Comment: CLEAN CATCH Performed By: #### L 400.0001 #### [facility] [address] [place], [address] BACTERIA 0 SEEN Normal None Seen [facility] Comment on above: Order Comment: CLEAN CATCH Performed By: #### L 400.0001 #### [facility] [address] [place], [address] Mucus Ql (Urine sed) 0 SEEN Normal [facility] Comment on above: Order Comment: CLEAN CATCH Performed By: #### L 400.0001 #### [facility] [address] [place], [address] RBC 0 SEEN Normal 0-5 [facility] Comment on above: Order Comment: CLEAN CATCH Performed By: #### L 400.0001 #### [facility] [address] [place], [address] WBC 0 SEEN Normal 0-5 [facility] Comment on above: Order Comment: CLEAN CATCH Performed By: #### L 400.0001 #### [facility] [address] [place], [address] [facility] ADINA ESCOBAR I ([id number]) 1950 F Date Time Provider Department 07/30/24 [...] Asking for recommendations Please advise Thank you [phone] (home) [phone] (cell) Patient last appointment: 07/29/2024 Husam Nj [...] GI Upset PROPOXYPHENE 06/23/2015 16 - Unknown DLQCZGF-QKQ-YKD REDUCTASE INHIBIT*06/22/2020 6 - Diarrhea 5 - [...] 8 hours as needed for nausea/vomiting. - zsnjhxbesk-svvnfqij-numihc itzel (BREZTRI AEROSPHERE) 160-9-4.8 mcg/actuation HFA aerosol [...] without esophagitis [K21. (more content not included)... [facility] 07-04-[address] [facility] Office Visit (FPUPDV ) -- ADINA ESCOBAR I ([id number]) 1950 F Date Time Provider Department 07/04/24 3:20 PM KENTRELL DHALIWAL II UPDV During your visit today, we recorded the following information about you: Temperature Pulse Respiration Blood pressure 97.3 degrees 66/minute 16/minute 138/72 Weight Height 60.4 kg 1.549 m Kentrell Dhaliwal II, MD 07/12/2024 7:41 PM Signed Kentrell Dhaliwal II, MD [address], [address] [place] [address] NOEMI Escobar is a 74 year old [...] [Cefdinir] Diarrhea Prednisone GI Upset Propoxyphene Unknown Pcntiyj-Stv-Wxq Red* Diarrhea, Intolerance Sulfa (Sulfonamide * Other: [...] daily. levothyroxine (SYNTHR (more content not included)... [facility]20[facility] -- SHAWNADINA COHEN I ([id number]) 1950 F Date Time Provider Department 06/25/24 [...] her for this? Please Advise Thank you [phone] (home) [phone] (cell) Patient last appointment: 06/14/2024 Kaylee Palomares Maximo Pappas 06/25/2024 3:59 PM Addendum Patient called and [...] bleeding? Please advise LISA Junior Robert Earl II MD 06/25/2024 5:03 PM Signed Neosporin and [...] no other symptoms. Please advise, thank you. [phone] (home) [phone] (cell) Kentrell Dhaliwal II, MD 07/03/2024 6:44 [...] GI Upset PROPOXYPHENE 06/23/2015 16 - Unknown SYUYPTT-GLV-HSX REDUCTASE INHIBIT*06/22/2020 6 - Diarrhea 5 - Intolerance SULFA (SULFONAMIDE ANTIBIOTICS) 06/15/2020 14 - Other: See Comments Comments: Leg pain SHELLFISH CONTAINING PRODUCTS 11/29/2012 7 - Swelling Date Reviewed: 06/11/2024 Reviewed by: Susanne Uribe - Fully Assessed Reason for Visit: Medication Question [5178] Order(s):naphazoline-pheni ramine eye drops (NAPHCON-A) 0.025-0.3 % [...] needed for nausea/vomiting. (more content not included)... [facility] 06-13-2024 [facility] Telephone (FPUPDV) -- SHAWNADINA I ([id number]) 1950 F Date Time Provider Department 06/13/24 [...] GI Upset PROPOXYPHENE 06/23/2015 16 - Unknown JPGCRTN-BGX-ZAU REDUCTASE INHIBIT*06/22/2020 6 - Diarrhea 5 - [...] 8 hours as needed for nausea/vomiting. - yvgqxdcebd-qemlktsf-sjsafq itzel (BREZTRI AEROSPHERE) 160-9-4.8 mcg/actuation HFA aerosol [...] (HCC) [E43] 03/19/2023 SBO (small bowel obstruction) ([facility]) [K56.609] 04/01/2023 04/05/2023 Encounter Status:Closed by HUSAM GRANT on 06/13/[address] [facility] 25(OH)D3 Mona 2023 25-hydroxyvitamin D3 [Mass/Vol] 31.5 ng/mL Normal 31.0-80.0 [facility] Comment on above: Order Comment: Speci men Type: BLOOD SPECIMENOrdering Facility: [facility] Address: [address] [place], [place] [address] [address] Performed By: #### 2 4321988-11 ####[facility] LABCLIA [id number] [place] [address] [place] 25-hydroxyvitamin D3 [Mass/V ol]on 06-11-2024 Interpretation and review of laboratory results Normal [facility] Basic metabolic 2000 panelon 06-11-2024 Anion gap [Moles/Vol] 12 mmol/L 8 - 15 mmol/L [facility] Calcium [Mass/Vol] 9.5 mg/dL 8.5 - 10. 2 mg/dL [facility] Chloride [Moles/Vol] 104 mmol/L 98 - 10 7 mmol/L [facility] CO2 [Moles/Vol] 23 mmol/L 22 - 30 mmol/L [facility] Creatinine [Mass/Vol] 1.13 mg/dL High 0.58 - 0.96 mg/dL [facility] GFR/1.73 sq M.predicted among non-blacks MDRD (S/P/Bld) [Vol rate/Area] 51 mL/min/{1.73_m2} Low - PINF [facility] Comment on above: Estimated Glomerular Filtration Rate [...] [Mass/Vol] 78 mg/dL 74 - 99 mg/dL [facility] Comment on above: The [place] Diabete s Association (ADA) provides guidance for [...] Standards of Medical Care in Diabetes 2016, [place] [employer] Association. Diabetes Care. 2016.39(Suppl 1). Interpretation and review of laboratory results Abnormal [facility] Potassium [Moles/Vol] 4.5 mmol/L 3.7 - 5.1 mmol/L [facility] Sodium [Moles/Vol] 139 mmol/L 136 - 144 mmol/L [facility] Urea nitrogen [Mass/Vol] 16 mg/dL 7 - 21 mg/dL [facility] Anion gap [Moles/Vol] 12 mmol/L Normal 8-15 [facility] Comment on above: Order Comment: Speci men Type: BLOOD SPECIMENOrdering Facility: [facility] Address: [address] [place] [address] Performed By: #### 2 4320-10, 1988-11 ####[facility] [id number] [place] [address] [place] Calcium [Mass/Vol] 9.5 mg/dL Normal 8.5-10.2 [facility] Comment on above: Order Comment: Speci men Type: BLOOD SPECIMENOrdering Facility: [facility] Address: [address] [place] [address] Performed By: #### 2 4320-10, 1988-11 ####[facility] [id number] [place] [address] [place] Chloride [Moles/Vol] 104 mmol/L Normal 98-107 [facility] Comment on above: Order Comment: Speci men Type: BLOOD SPECIMENOrdering Facility: [facility] Address: [address] [place] [address] Performed By: #### 2 4320-10, 1988-11 ####[facility] LABIA [id number] [place] [address] [place] CO2 [Moles/Vol] 23 mmol/L Normal 22-30 [facility] Comment on above: Order Comment: Speci men Type: BLOOD SPECIMENOrdering Facility: [facility] Address: [address] [place] [address] Performed By: #### 2 4320-10, 1988-11 ####[facility] LABIA [id number] [place] [address] [place] Creatinine [Mass/Vol] 1.13 mg/dL High 0.58-0.96 [facility] Comment on above: Order Comment: Sam talley Type: BLOOD SPECIMENOrdering Facility: [facility] Address: [address] [place], [place] [address] Performed By: #### 2 43209-18, 1988-11 ####[facility] LABCLIA [id number] [place] [address] [place] Creatinine and Glomerular filtration rate.predicted panel (S/P/Bld) 51 mL/min/1.73m??? Low >=60 [facility] Comment on above: Order Comment: Sam talley Type: BLOOD SPECIMENOrdering Facility: [facility] Address: [address] [place] [address] Result Comment: [place] mated Glomerular Filtration Rate [...] By: #### 2 4320-10, 1988-11 ####[facility] LABCLIA [id number] [place] [address] [place] Glucose [Mass/Vol] 78 mg/dL Normal 74-99 [facility] Comment on above: Order Comment: Sam talley Type: BLOOD SPECIMENOrdering Facility: [facility] Address: [address] [place] [address] Result Comment: The [place] Diabetes Association (ADA) provides guidance for cutoff [...] Standards of Medical Care in Diabetes 2016, [place] Diabetes Association. Diabetes Care. 2016.39(Suppl 1). Performed By: #### 2 4320-10, 1988-11 ####[facility] LABIA [id number] [place] [address] [place] Potassium [Moles/Vol] 4.5 mmol/L Normal 3.7-5.1 [facility] Comment on above: Order Comment: Speci men Type: BLOOD SPECIMENOrdering Facility: [facility] Address: [address] [place] [address] Performed By: #### 2 4320-10, 1988-11 ####[facility] [id number] [place] [address] [place] Sodium [Moles/Vol] 139 mmol/L Normal 136-144 [facility] Comment on above: Order Comment: Speci men Type: BLOOD SPECIMENOrdering Facility: [facility] Address: [address] [place] [address] Performed By: #### 2 4320-10, 1988-11 ####[facility] [id number] [place] [address] [place] Urea nitrogen [Mass/Vol] 16 mg/dL Normal 7-21 [facility] Comment on above: Order Comment: Speci men Type: BLOOD SPECIMENOrdering Facility: [facility] Address: [address] [place] [address] Performed By: #### 2 4320-10, 1988-11 ####[facility] [id number] [place] [address] [place] CBC panel Auto (Bld)on 06-11 Erythrocyte distribution width (RBC) [Ratio] 14.6 % 11.5 - 15.0 % [facility] Hematocrit (Bld) [Volume fraction] 37.1 % 36.0 - 46.0 % [facility] Hemoglobin (Bld) [Mass/Vol] 12.2 g/dL 11.5 - 15.5 g/dL [facility] Interpretation and review of laboratory results Normal [facility] MCH (RBC) [Entitic mass] 30.7 pg 26.0 - 34.0 pg [facility] MCHC (RBC) [Mass/Vol] 32.9 g/dL 30.5 - 36.0 g/dL [facility] MCV (RBC) [Entitic vol] 93.2 fL 80.0 - 100.0 fL [facility] Nucleated RBC (Bld) [#/Vol] NINF [facility] Platelet mean volume (Bld) [Entitic vol] 9.7 fL 9.0 - 12.7 fL [facility] Platelets (Bld) [#/Vol] 385 10*3/uL [facility] RBC (Bld) [#/Vol] 3.98 10*6/uL 3.90 - 5.2 0 m/uL [facility] WBC (Bld) [#/Vol] 8.86 10*3/uL [facility] Erythrocyte distribution width (RBC) [Ratio] 14.6 % Normal 11.5-15.0 [facility] Comment on above: Order Comment: Speci men Type: BLOOD SPECIMENOrdering Facility: [facility] Address: [address] [place] [address] Performed By: #### 5 8410-2 ####[facility] [id number] [place] [address] [place] Hematocrit (Bld) [Volume fraction] 37.1 % Normal 36.0-46.0 [facility] Comment on above: Order Comment: Speci men Type: BLOOD SPECIMENOrdering Facility: [facility] Address: [address] [place] [address] Performed By: #### 5 8410-2 ####[facility] [id number] [place] [address] [place] Hemoglobin (Bld) [Mass/Vol] 12.2 g/dL Normal 11.5-15.5 [facility] Comment on above: Order Comment: Speci men Type: BLOOD SPECIMENOrdering Facility: [facility] Address: [address] [place] [address] Performed By: #### 5 8410-2 ####[facility] [id number] [place] [address] [place] MCH (RBC) [Entitic mass] 30.7 pg Normal 26.0-34.0 [facility] Comment on above: Order Comment: Speci men Type: BLOOD SPECIMENOrdering Facility: [facility] Address: [address] [place] [address] Performed By: #### 5 8410-2 ####[facility] LABIA [id number] [address] [place] MCHC (RBC) [Mass/Vol] 32.9 g/dL Normal 30.5-36.0 [facility] Comment on above: Order Comment: Speci men Type: BLOOD SPECIMENOrdering Facility: [facility] Address: [address] [place] [address] Performed By: #### 5 8410-2 ####[facility] [id number] [address] [place] MCV (RBC) [Entitic vol] 93.2 fL Normal 80.0-100.0 [facility] Comment on above: Order Comment: Speci men Type: BLOOD SPECIMENOrdering Facility: [facility] Address: [address] [place] [address] Performed By: #### 5 8410-2 ####[facility] LABIA [id number] [address] [place] Nucleated RBC (Bld) [#/Vol] 10*3/uL Normal <0.01 [facility] Comment on above: Order Comment: Speci men Type: BLOOD SPECIMENOrdering Facility: [facility] Address: [address] [place] [address] Performed By: #### 5 8410-2 ####[facility] LABIA [id number] [address] [place] [facility] Platelet mean volume (Bld) [Entitic vol] 9.7 fL Normal 9.0-12.7 [facility] Comment on above: Order Comment: Speci men Type: BLOOD SPECIMENOrdering Facility: [facility] Address: [address] [place] [address] Performed By: #### 5 8410-2 ####[facility] LABIA [id number] [place] [address] [facility] [place] Platelets (Bld) [#/Vol] 385 10*3/uL Normal 150-400 [facility] Comment on above: Order Comment: Speci men Type: BLOOD SPECIMENOrdering Facility: [facility] Address: [address] [place] [address] Performed By: #### 5 8410-2 ####[facility] [id number] [place] [address] [facility] RBC (Bld) [#/Vol] 3.98 10*6/uL Normal 3.90-5.20 [facility] Comment on above: Order Comment: Speci men Type: BLOOD SPECIMENOrdering Facility: [facility] Address: [address] [place] [address] Performed By: #### 5 8410-2 ####[facility] [id number] [place] [address] [facility] WBC (Bld) [#/Vol] 8.86 10*3/uL Normal 3.70-11.00 [facility] Comment on above: Order Comment: Speci men Type: BLOOD SPECIMENOrdering Facility: [facility] Address: [address] [place] [address] Performed By: #### 5 8410-2 ####[facility] [id number] [place] [address] [facility] CNOVon 06-11-2024 CNOV Office Visit (FPUPDV ) -- ADINA ESCOBAR I ([id number]) 1950 F Date Time Provider Department 06/11/24 10:00 AM KENTRELL DHALIWAL II FPUPDV During your visit today, we recorded the following information about you: Temperature Pulse Blood pressure Weight 97.3 degrees 90/minute 158/80 57.8 kg Height 1.549 m Kentrell Dhaliwal II, MD 06/14/2024 9:10 PM Signed Kentrell Dhaliwal II, MD [address], [address] [place] [address] NOEMI Escobar is a 74 year old female who presents with Follow Up (3 month follow up. Pt states that she is having breathing issues. Using all of her inhalers. Pt stated that the time is coming that she will need to go to the long term. Pt needing refills. Pt would like to [...] [Cefdinir] Diarrhea Prednisone GI Upset Propoxyphene Unknown Htqxkqc-Snu-Pmk Red* Diarrhea, Intolerance Sulfa (Sulfonamide * Other: [...] 10 days. (more content not included)... Normal [facility] Hepatic function 1999 panelO rdered By: Abigail Chahal on 06-11-2024 Albumin [Mass/Vol] 4.1 g/dL 3.9 - 4.9 g/dL [facility] ALP [Catalytic activity/Vol] 91 U/L 34 - 123 U/L [facility] ALT [Catalytic activity/Vol] 20 U/L 7 - 38 U/L [facility] AST [Catalytic activity/Vol] 27 U/L 13 - 35 U/L [facility] Bilirubin [Mass/Vol] 0.3 mg/dL 0.2 - 1 .3 mg/dL [facility] Bilirubin.conjugated [Mass/Vol] mg/dL NINF - 0.2 mg/dL [facility] Interpretation and review of laboratory results Normal [facility] Protein [Mass/Vol] 7.2 g/dL 6.3 - 8.0 g/dL [facility] Hepatic function 2000 panelo n 06-11-2024 Albumin [Mass/Vol] 4.1 g/dL Normal 3.9-4.9 [facility] Comment on above: Order Comment: Sam talley Type: BLOOD SPECIMENOrdering Facility: [facility] Address: [address] [place] [address] Performed By: #### 2 4325-3, 54713-9, 6-3, 04510-9 ####[facility] [id number] [place] [address] [place] [facility] ALP [Catalytic activity/Vol] 91 U/L Normal 34-123 [facility] Comment on above: Order Comment: Sam talley Type: BLOOD SPECIMENOrdering Facility: [facility] Address: [address] [place] [address] Performed By: #### 2 4325-3, 51660-5, 6-3, 51463-8 ####[facility] LABIA [id number] [place] [address] [place] ALT [Catalytic activity/Vol] 20 U/L Normal 7-38 [facility] Comment on above: Order Comment: Sam talley Type: BLOOD SPECIMENOrdering Facility: [facility] Address: [address] [facility] [address] Performed By: #### 2 4325-3, 11833-9, 3016-3, 68112-5 ####[facility] LABIA [id number] [place] [address] [place] AST [Catalytic activity/Vol] 27 U/L Normal 13-35 [facility] Comment on above: Order Comment: Speci men Type: BLOOD SPECIMENOrdering Facility: [facility] Address: [address] [place] [address] [place] [address] Performed By: #### 2 4325-3, 71495-5, 3016-3, 63083-8 ####[facility] LABIA [id number] [place] [address] [place] Bilirubin [Mass/Vol] 0.3 mg/dL Normal 0.2-1.3 [facility] Comment on above: Order Comment: Speci men Type: BLOOD SPECIMENOrdering Facility: [facility] Address: [address] [place] [address] Performed By: #### 2 4325-3, 56897-0, 3016-3, 83104-9 ####[facility] LABIA [id number] [place] [address] [place] Bilirubin.conjugated [Mass/Vol] mg/dL Normal <0.2 [facility] Comment on above: Order Comment: Speci men Type: BLOOD SPECIMENOrdering Facility: [facility] Address: [address] [place] [address] Performed By: #### 2 4325-3, 41294-2, 3016-3, 39130-1 ####[facility] [id number] [place] [address] [place] Protein [Mass/Vol] 7.2 g/dL Normal 6.3-8.0 [facility] Comment on above: Order Comment: Speci men Type: BLOOD SPECIMENOrdering Facility: [facility] Address: [address] [place] [address] Performed By: #### 2 4325-3, 65649-1, 3016-3, 55884-6 ####[facility] LABIA [id number] [place] [address] [place] Iron and Iron binding capaci ty panelon 06-11-2024 Interpretation and review of laboratory results Abnormal [facility] Iron [Mass/Vol] 45 ug/dL 41 - 186 ug/dL [facility] Iron binding capacity [Mass/Vol] 305 ug/dL 232 - 386 ug/dL [facility] Iron/TIBC [Molar ratio] 14.8 % Low 15.0 - 57.0 % [facility] Iron [Mass/Vol] 45 ug/dL Normal 41-186 [facility] Comment on above: Order Comment: Speci men Type: BLOOD SPECIMENOrdering Facility: [facility] Address: [address] [place] [address] Performed By: #### 2 4325-3, 87321-2, 3, 91838-4 ####[facility] [id number] [place] [address] [place] [facility] Iron binding capacity [Mass/Vol] 305 ug/dL Normal 232-386 [facility] Comment on above: Order Comment: Speci men Type: BLOOD SPECIMENOrdering Facility: [facility] Address: [address] [place] [address] Performed By: #### 2 4325-3, 68006-5, 3, 56565-2 ####[facility] [id number] [place] [address] [place] [facility] Iron/TIBC [Molar ratio] 14.8 % Low 15.0-57.0 [facility] Comment on above: Order Comment: Speci men Type: BLOOD SPECIMENOrdering Facility: [facility] Address: [address] [place] [address] Performed By: #### 2 4325-3, 56713-9, 3, 20209-6 ####[facility] LABIA [id number] [place] [address] [place] MAGNESIUMon 06-11-2024 Magnesium [Mass/Vol] 2.0 mg/dL 1.7 - 2 .3 mg/dL [facility] Magnesium SerPl-mCncon 06-11 Magnesium [Mass/Vol] 2.0 mg/dL Normal 1.7-2.3 [facility] Comment on above: Order Comment: Sam men Type: BLOOD SPECIMENOrdering Facility: [facility] Address: [address] [place] [address] [place] [address] Performed By: #### 2 4325-3, 93623-6, 3016-3, 83787-8 ####[facility] LABCLIA [id number] [place] [address] [place] No Panel Informationon 06-11 Interpretation and review of laboratory results Normal [facility] THYROID STIMULATING HORMONEo n 06-11-2024 TSH Qn 3.370 m[IU]/L [facility] TSH SerPl-aCncon 06-11-2024 TSH Qn 3.370 m[IU]/L Normal 0.270-4.200 [facility] Comment on above: Order Comment: Speci men Type: BLOOD SPECIMENOrdering Facility: [facility] Address: [address] [place] [address] Performed By: #### 2 4325-3, 31377-4, 3016-3, 42917-4 ####[facility] LABCLIA [id number] [place] [address] [facility] VITAMIN D 25 HYDROXYon 06-11 25-hydroxyvitamin D3 [Mass/Vol] 31.5 ng/mL 31.0 - 80.0 ng/mL [facility] CNPNon 05-07-2024 CNPN Telephone (FPUPDV) -- ADINA ESCOBAR I ([id number]) 1950 F Date Time Provider Department 05/07/24 [...] today at 9:20 am Rosario call back [phone] Thank you [phone] (home) [phone] (cell) Patient last appointment: 05/01/2024 Kavya Argueta [place] Pappasina 05/07/2024 9:37 AM Signed Daughter Rosario called [...] GI Upset PROPOXYPHENE 06/23/2015 16 - Unknown ZWTZIUC-MYB-ZXN REDUCTASE INHIBIT*06/22/2020 6 - Diarrhea 5 - [...] 8 hours as needed for nausea/vomiting. - lrfxmjmuan-eybehvci-njbprw itzel (BREZTRI AEROSPHERE) 160-9-4.8 mcg/actuation HFA aerosol [...] 06/22/2020 04/17/2022 (more content not included)... Normal [facility] Absolute lymphocyte countOrd ered By: Mike Fraser on 12-13-2023 Lymphocytes Auto (Unsp spec) [#/Vol] 2.12 10*3/uL 0.83-4.51 [facility] Automated lymphocyte count a s percentage of total leukocytesOrdered By: Mike Fraser on 12-13-2023 Lymphocytes/100 WBC Auto (Unsp spec) 21.9 % 19-41 [facility] Basophil percentageOrdered B y: Mike Fraser on 12-13-2023 Basophil percentage 0-5 SEEN /hpf 0-5 [facility] Basophils/100 WBC (Bld) 0.4 % 0-1 [facility] Bilirubin [Mass/Vol] 0.30 mg/dL 0.20-1.00 [facility] Comment on above: For patients on eltr ombopag therapy, use of Dimension [place] TBIL is not recommended. Chloride [Moles/Vol] 113 mmol/L 98-107 [facility] Eosinophils/100 WBC (Bld) 2.0 % 0-5 [facility] Glucose [Mass/Vol] 92 mg/dL 74-106 [facility] Hemoglobin (Bld) [Mass/Vol] 8.6 g/dL 12.0-15.0 [facility] Monocytes/100 WBC (Bld) 8.2 % 0-10 [facility] Neutrophils (Bld) [#/Vol] 6.5 10*3/uL 2.0-7.7 [facility] Neutrophils/100 WBC (Bld) 67.1 % 47-70 [facility] Potassium [Moles/Vol] 3.7 mmol/L 3.5-5.1 [facility] Protein [Mass/Vol] 5.7 g/dL 6.4-8.2 [facility] Sodium [Moles/Vol] 144 mmol/L 136-145 [facility] WBC (Bld) [#/Vol] 9.7 10*3/uL 4.4-11.0 [facility] Bilirubin Test strip Ql (U)O rdered By: Mike Fraser on 12-13-2023 Bilirubin Ql (U) Negative Negative [facility] Determination of erythrocyte mean corpuscular volume (MCV)Ordered By: Mike Fraser on 12-13-2023 MCV (RBC) [Entitic vol] 86.4 fL 81-99 [facility] Erythrocyte distribution wid th ratioOrdered By: Mike Fraser on 12-13-2023 Erythrocyte distribution width (RBC) [Ratio] 17.0 % 11.6-14.6 [facility] Erythrocyte distribution wid th standard deviationOrdered By: Mike Fraser on 12-13-2023 Erythrocyte distribution width (RBC) [Entitic vol] 53.4 fL 35.1-43.9 [facility] Hematocrit Auto (Bld) [Volum e fraction]Ordered By: Mike Fraser on 12-13-2023 Hematocrit (Bld) [Volume fraction] 27.3 % 37-47 [facility] Immature granulocytes/100 WB C Auto (Bld)Ordered By: Mike Fraser on 12-13-2023 Immature granulocytes/100 WBC (Bld) 0.400 % 0.0-0.9 [facility] Comment on above: IG% - Immature Granu locytes (promyelocytes, myelocytes and metamyelocytes) > 1% indicates that a LEFT SHIFT is Present. Ketones Test strip Ql (U)Ord ered By: Mike Fraser on 12-13-2023 Ketones Ql (U) Negative Negative [facility] Laboratory - Chemistry and C hemistry - challengeOrdered By: Mike Fraser on 12-13-2023 Albumin/Globulin [Mass ratio] 0.9 {ratio} 0.9-2.4 [facility] ALP [Catalytic activity/Vol] 103 U/L 45-117 [facility] ALT [Catalytic activity/Vol] 34 U/L 13-56 [facility] CO2 [Moles/Vol] 26.0 mmol/L 21.0-32.0 [facility] Globulin (S) [Mass/Vol] 3.0 g/dL 2.2-4.2 [facility] Lipase [Catalytic activity/Vol] 94 U/L 13-75 [facility] Comment on above: Please note:LIPASE r evised reference range effective 22. New Lipase methodology. Expected to produce lower values than the previous assay method. NEW Reference Range: 13 - 75 U/L Urea nitrogen/Creatinine [Mass ratio] 10.1 mg/mg 10-20 [facility] Laboratory - Hematology and Cell countsOrdered By: Mike Fraser on 12-13-2023 MCH (RBC) [Entitic mass] 27.2 pg 27.0-32.0 [facility] MCHC (RBC) [Mass/Vol] 31.5 g/dL 32-36 [facility] Nucleated RBC/100 WBC (Bld) [Ratio] 0 % 0-5 [facility] Platelet mean volume (Bld) [Entitic vol] 10.7 fL 6.2-12.0 [facility] Platelets (Bld) [#/Vol] 310 10*3/uL 150-450 [facility] Mucus LM Ql (Urine sed)Order ed By: Mike Fraser on 12-13-2023 Mucus Ql (Urine sed) 0 SEEN /hpf [facility] Nitrite Test strip Ql (U)Ord ered By: Mike Fraser on 12-13-2023 Nitrite Ql (U) Negative Negative [facility] No Panel InformationOrdered By: Mike Fraser on 12-13-2023 Urine RBC 0 SEEN /hpf 0-5 [facility] Estimated Creatinine Clearance Calc 46.13 ml/min [facility] Estimated GFR (MDRD) Amer 80 mL/min >60 [facility] Comment on above: GFR Calc Estimated GFR (MDRD) Non-Af Amer 66 mL/min >60 [facility] Comment on above: Non- GFR Calc Protein Test strip Ql (U)Ord ered By: Mike Fraser on 12-13-2023 Protein Ql (U) Negative Negative [facility] RBC Auto (Bld) [#/Vol]Ordere d By: Mike Fraser on 12-13-2023 RBC (Bld) [#/Vol] 3.16 10*6/uL 4.2-5.4 [facility] Serum or plasma calcium franck urement (mass/volume)Ordered By: Mike Fraser on 12-13-2023 Calcium [Mass/Vol] 8.9 mg/dL 8.5-10.1 [facility] Serum or plasma creatinine m easurement (mass/volume)Ordered By: Mike Fraser on 12-13-2023 Creatinine [Mass/Vol] 0.90 mg/dL 0.55-1.02 [facility] Comment on above: The validity of the calculated GFR & GFRAA in patients over 70 years has not been determined. Clinical correlation is essential. Serum or plasma urea nitroge n measurement (mass/volume)Ordered By: Mike Fraser on 12-13-2023 Urea nitrogen [Mass/Vol] 9 mg/dL 7-18 [facility] Squamous epithelial cells de tection in urine sediment by light microscopyOrdered By: Mike Fraser on 12-13-2023 Epithelial cells.squamous LM Ql (Urine sed) 0-5 SEEN /hpf 5-10 [facility] Thin prep Papanicolaou smear with manual screeningOrdered By: Mike Fraser on 12-13-2023 Thin prep Papanicolaou smear with manual screening 2.7 g/dL 3.2-5.0 [facility] Thin prep Papanicolaou smear with manual screening 20 U/L 15-37 [facility] Thin prep Papanicolaou smear with manual screening 5 5-15 [facility] Urine blood detectionOrdered By: Mike Fraser on 12-13-2023 RBC Ql (U) Negative Negative [facility] Urine clarityOrdered By: Priya Fraser on 12-13-2023 Clarity (U) Sl. Cloudy Clear [facility] Urine color determinationOrd ered By: Mike Fraser on 12-13-2023 Color (U) Straw Yellow [facility] Urine glucose detectionOrder ed By: Mike Fraser on 12-13-2023 Glucose Ql (U) Normal mg/dl Normal [facility] Urine leukocyte esterase det ection by dipstickOrdered By: Mike Fraser on 12-13-2023 Leukocyte esterase Test strip Ql (U) 25 /ul Negative [facility] Urine pHOrdered By: Mike de luna on 12-13-2023 pH (U) 7.0 [pH] 5.0 - 8.0 [facility] Urine sediment bacteria coun t by microscopy (number/high power field)Ordered By: Mike Fraser on 12-13-2023 Bacteria LM.HPF (Urine sed) [#/Area] 0 /[HPF] None Seen [facility] Urine specific gravity measu rementOrdered By: Mike Fraser on 12-13-2023 Specific gravity (U) [Rel density] 1.005 1.002-1.030 [facility] Urine urobilinogen measureme ntOrdered By: Mike Fraser on 12-13-2023 Urobilinogen Ql (U) Normal mg/dl Normal [facility] Absolute lymphocyte countOrd ered By: Aly Fragoso on 12-11-2023 Lymphocytes Auto (Unsp spec) [#/Vol] 1.81 10*3/uL 0.83-4.51 [facility] Automated lymphocyte count a s percentage of total leukocytesOrdered By: Aly Fragoso on 12-11-2023 Lymphocytes/100 WBC Auto (Unsp spec) 32.3 % 19-41 [facility] Basophil percentageOrdered B y: Aly Fragoso on 12-11-2023 Basophils/100 WBC (Bld) 0.9 % 0-1 [facility] Chloride [Moles/Vol] 114 mmol/L 98-107 [facility] Eosinophils/100 WBC (Bld) 2.7 % 0-5 [facility] Glucose [Mass/Vol] 125 mg/dL 74-106 [facility] Comment on above: Fasting Glucose resu lt from 100 to 125 mg/dL suggests IMPAIRED HOMEOSTASIS per A.D.A. criteria. Hemoglobin (Bld) [Mass/Vol] 7.8 g/dL 12.0-15.0 [facility] Monocytes/100 WBC (Bld) 11.6 % 0-10 [facility] Neutrophils (Bld) [#/Vol] 2.9 10*3/uL 2.0-7.7 [facility] Neutrophils/100 WBC (Bld) 52.3 % 47-70 [facility] Potassium [Moles/Vol] 3.2 mmol/L 3.5-5.1 [facility] Sodium [Moles/Vol] 145 mmol/L 136-145 [facility] WBC (Bld) [#/Vol] 5.6 10*3/uL 4.4-11.0 [facility] Determination of erythrocyte mean corpuscular volume (MCV)Ordered By: Aly Fragoso on 12-11-2023 MCV (RBC) [Entitic vol] 85.2 fL 81-99 [facility] Erythrocyte distribution wid th ratioOrdered By: Aly Fragoso on 12-11-2023 Erythrocyte distribution width (RBC) [Ratio] 16.3 % 11.6-14.6 [facility] Erythrocyte distribution wid th standard deviationOrdered By: Aly Fragoso on 12-11-2023 Erythrocyte distribution width (RBC) [Entitic vol] 51.0 fL 35.1-43.9 [facility] Hematocrit Auto (Bld) [Volum e fraction]Ordered By: Aly Fragoso on 12-11-2023 Hematocrit (Bld) [Volume fraction] 24.7 % 37-47 [facility] Immature granulocytes/100 WB C Auto (Bld)Ordered By: Aly Fragoso on 12-11-2023 Immature granulocytes/100 WBC (Bld) 0.200 % 0.0-0.9 [facility] Comment on above: IG% - Immature Granu locytes (promyelocytes, myelocytes and metamyelocytes) > 1% indicates that a LEFT SHIFT is Present. Laboratory - Chemistry and C hemistry - challengeOrdered By: Aly Fragoso on 12-11-2023 CO2 [Moles/Vol] 21.0 mmol/L 21.0-32.0 [facility] Urea nitrogen/Creatinine [Mass ratio] 2.4 mg/mg 10-20 [facility] Laboratory - Hematology and Cell countsOrdered By: Aly Fragoso on 12-11-2023 MCH (RBC) [Entitic mass] 26.9 pg 27.0-32.0 [facility] MCHC (RBC) [Mass/Vol] 31.6 g/dL 32-36 [facility] Nucleated RBC/100 WBC (Bld) [Ratio] 0 % 0-5 [facility] Platelet mean volume (Bld) [Entitic vol] 11.0 fL 6.2-12.0 [facility] Platelets (Bld) [#/Vol] 235 10*3/uL 150-450 [facility] No Panel InformationOrdered By: Aly Fragoso on 12-11-2023 Estimated Creatinine Clearance Calc 46.80 ml/min [facility] Estimated GFR (MDRD) Amer 88 mL/min >60 [facility] Comment on above: GFR Calc Estimated GFR (MDRD) Non-Af Amer 73 mL/min >60 [facility] Comment on above: Non- GFR Calc RBC Auto (Bld) [#/Vol]Ordere d By: Aly Fragoso on 12-11-2023 RBC (Bld) [#/Vol] 2.90 10*6/uL 4.2-5.4 [facility] Serum or plasma calcium franck urement (mass/volume)Ordered By: Aly Fragoso on 12-11-2023 Calcium [Mass/Vol] 7.8 mg/dL 8.5-10.1 [facility] Serum or plasma creatinine m easurement (mass/volume)Ordered By: Aly Fragoso on 12-11-2023 Creatinine [Mass/Vol] 0.82 mg/dL 0.55-1.02 [facility] Comment on above: The validity of the calculated GFR & GFRAA in patients over 70 years has not been determined. Clinical correlation is essential. Serum or plasma urea nitroge n measurement (mass/volume)Ordered By: Aly Fragoso on 12-11-2023 Urea nitrogen [Mass/Vol] 2 mg/dL 7-18 [facility] Thin prep Papanicolaou smear with manual screeningOrdered By: Aly Fragoso on 12-11-2023 Thin prep Papanicolaou smear with manual screening 10 5-15 [facility] Iron measurement (mass/mass) Ordered By: Aly Fragoso on 12-10-2023 Iron (Unsp spec) [Mass/Mass] 28 ug/dL 50-170 [facility] Laboratory - Chemistry and C hemistry - challengeOrdered By: Aly Fragoso on 12-10-2023 Cobalamin (Vitamin B12) [Mass/Vol] 741 pg/mL 211-911 [facility] Ferritin [Mass/Vol] 15 ng/mL 8-252 [facility] No Panel InformationOrdered By: Aly Fragoso on 12-10-2023 Total Iron Binding Capacity 350 ug/dL 250-450 [facility] Serum or plasma iron saturat ion measurement (mass fraction)Ordered By: Aly Fragoso on 12-10-2023 Iron saturation [Mass fraction] 8.0 % 15.0-55.0 [facility] Basophil percentageOrdered B y: Jessica Thomas on 12-09-2023 Bilirubin [Mass/Vol] 0.70 mg/dL 0.20-1.00 [facility] Comment on above: For patients on eltr ombopag therapy, use of [place] TBIL is not recommended. Protein [Mass/Vol] 6.0 g/dL 6.4-8.2 [facility] Laboratory - Chemistry and C hemistry - challengeOrdered By: Jessica Thomas on 12-09-2023 Albumin/Globulin [Mass ratio] 0.9 {ratio} 0.9-2.4 [facility] ALP [Catalytic activity/Vol] 139 U/L 45-117 [facility] ALT [Catalytic activity/Vol] 77 U/L 13-56 [facility] Globulin (S) [Mass/Vol] 3.2 g/dL 2.2-4.2 [facility] Thin prep Papanicolaou smear with manual screeningOrdered By: Jessica Thomas on 12-09-2023 Thin prep Papanicolaou smear with manual screening 2.8 g/dL 3.2-5.0 [facility] Thin prep Papanicolaou smear with manual screening 54 U/L 15-37 [facility] Clostridioides difficile nuc leic acid assay by PCROrdered By: Jessica Thomas on 12-08-2023 C. difficile DNA RENATA+probe Ql (Unsp spec) [facility] Basophil percentageOrdered B y: Jessica Thomas on 12-07-2023 Basophil percentage 3.1 mg/dL 2.5-4.9 [facility] Laboratory - Chemistry and C hemistry - challengeOrdered By: Jessica Thomas on 12-07-2023 Magnesium [Mass/Vol] 1.9 mg/dL 1.6-2.6 [facility] Laboratory - CoagulationOrde red By: Jessica Thomas on 12-07-2023 INR Coag (Bld) [Relative time] 1.1 {INR} [facility] PT Coag (PPP) [Time] 13.9 s 11.7-14.9 [facility] Respiratory pathogens detect ion panel by molecular detection methodOrdered By: Jessica Thomas on 12-07-2023 Respiratory pathogens DNA and RNA panel RENATA+probe (Resp) [facility] Absolute lymphocyte countOrd ered By: Federico Monique on 12-06-2023 Lymphocytes Auto (Unsp spec) [#/Vol] 3.30 10*3/uL 0.83-4.51 [facility] Automated lymphocyte count a s percentage of total leukocytesOrdered By: Federico Monique on 12-06-2023 Lymphocytes/100 WBC Auto (Unsp spec) 44.8 % 19-41 [facility] Basophil percentageOrdered B y: Federico Monique on 12-06-2023 Lactate [Moles/Vol] 1.2 mmol/L 0.4-2.0 [facility] Basophils/100 WBC (Bld) 0.8 % 0-1 [facility] Bilirubin [Mass/Vol] 0.50 mg/dL 0.20-1.00 [facility] Comment on above: For patients on eltr ombopag therapy, use of [place] TBIL is not recommended. Chloride [Moles/Vol] 113 mmol/L 98-107 [facility] Eosinophils/100 WBC (Bld) 0.8 % 0-5 [facility] Glucose [Mass/Vol] 100 mg/dL 74-106 [facility] Comment on above: Fasting Glucose resu lt from 100 to 125 mg/dL suggests IMPAIRED HOMEOSTASIS per A.D.A. criteria. Hemoglobin (Bld) [Mass/Vol] 10.1 g/dL 12.0-15.0 [facility] Monocytes/100 WBC (Bld) 8.4 % 0-10 [facility] Neutrophils (Bld) [#/Vol] 3.3 10*3/uL 2.0-7.7 [facility] Neutrophils/100 WBC (Bld) 44.7 % 47-70 [facility] Potassium [Moles/Vol] 4.7 mmol/L 3.5-5.1 [facility] Comment on above: Moderate Hemolysis, Result may be falsely increased. Protein [Mass/Vol] 7.4 g/dL 6.4-8.2 [facility] Sodium [Moles/Vol] 141 mmol/L 136-145 [facility] WBC (Bld) [#/Vol] 7.4 10*3/uL 4.4-11.0 [facility] Blood platelet adequacy dete ction by light microscopyOrdered By: Federico Monique on 12-06-2023 Platelets LM Ql (Bld) ADEQUATE ADEQ [facility] Determination of erythrocyte mean corpuscular volume (MCV)Ordered By: Federico Monique on 12-06-2023 MCV (RBC) [Entitic vol] 85.2 fL 81-99 [facility] Erythrocyte distribution wid th ratioOrdered By: Federico Monique on 12-06-2023 Erythrocyte distribution width (RBC) [Ratio] 16.6 % 11.6-14.6 [facility] Erythrocyte distribution wid th standard deviationOrdered By: Federico Monique on 12-06-2023 Erythrocyte distribution width (RBC) [Entitic vol] 51.6 fL 35.1-43.9 [facility] Hematocrit Auto (Bld) [Volum e fraction]Ordered By: Federico Monique on 12-06-2023 Hematocrit (Bld) [Volume fraction] 32.2 % 37-47 [facility] Immature granulocytes/100 WB C Auto (Bld)Ordered By: Federico Monique on 12-06-2023 Immature granulocytes/100 WBC (Bld) 0.500 % 0.0-0.9 [facility] Comment on above: IG% - Immature Granu locytes (promyelocytes, myelocytes and metamyelocytes) > 1% indicates that a LEFT SHIFT is Present. Laboratory - Chemistry and C hemistry - challengeOrdered By: Federico Monique on 12-06-2023 Albumin/Globulin [Mass ratio] 0.9 {ratio} 0.9-2.4 [facility] ALP [Catalytic activity/Vol] 78 U/L 45-117 [facility] ALT [Catalytic activity/Vol] 22 U/L 13-56 [facility] CO2 [Moles/Vol] 22.0 mmol/L 21.0-32.0 [facility] Globulin (S) [Mass/Vol] 3.9 g/dL 2.2-4.2 [facility] Lipase [Catalytic activity/Vol] 36 U/L 13-75 [facility] Comment on above: Please note:LIPASE r evised reference range effective 22. New Lipase methodology. Expected to produce lower values than the previous assay method. NEW Reference Range: 13 - 75 U/L Urea nitrogen/Creatinine [Mass ratio] 10.8 mg/mg 10-20 [facility] Laboratory - Hematology and Cell countsOrdered By: Federico Monique on 12-06-2023 Anisocytosis Ql (Bld) RARE [facility] MCH (RBC) [Entitic mass] 26.7 pg 27.0-32.0 [facility] MCHC (RBC) [Mass/Vol] 31.4 g/dL 32-36 [facility] Nucleated RBC/100 WBC (Bld) [Ratio] 0 % 0-5 [facility] Platelet mean volume (Bld) [Entitic vol] 11.1 fL 6.2-12.0 [facility] Platelets (Bld) [#/Vol] 281 10*3/uL 150-450 [facility] No Panel InformationOrdered By: Federico Monique on 12-06-2023 Estimated Creatinine Clearance Calc 34.57 ml/min [facility] Estimated GFR (MDRD) Amer 62 mL/min >60 [facility] Comment on above: GFR Calc Estimated GFR (MDRD) Non-Af Amer 51 mL/min >60 [facility] Comment on above: Non- GFR Calc Ovalocyte detectionOrdered B y: Federico Monique on 12-06-2023 Ovalocytes LM Ql (Bld) RARE [facility] RBC Auto (Bld) [#/Vol]Ordere d By: Federico Monique on 12-06-2023 RBC (Bld) [#/Vol] 3.78 10*6/uL 4.2-5.4 [facility] RBC morphologyOrdered By: Rodri Monique on 12-06-2023 RBC morphology finding Nom (Bld) N CHROM NORMAL NORM C&C [facility] Serum or plasma calcium franck urement (mass/volume)Ordered By: Federico Monique on 12-06-2023 Calcium [Mass/Vol] 9.5 mg/dL 8.5-10.1 [facility] Serum or plasma creatinine m easurement (mass/volume)Ordered By: Federico Monique on 12-06-2023 Creatinine [Mass/Vol] 1.11 mg/dL 0.55-1.02 [facility] Comment on above: The validity of the calculated GFR & GFRAA in patients over 70 years has not been determined. Clinical correlation is essential. Serum or plasma urea nitroge n measurement (mass/volume)Ordered By: Federico Monique on 12-06-2023 Urea nitrogen [Mass/Vol] 12 mg/dL 7-18 [facility] Thin prep Papanicolaou smear with manual screeningOrdered By: Federico Monique on 12-06-2023 Thin prep Papanicolaou smear with manual screening 3.5 g/dL 3.2-5.0 [facility] Thin prep Papanicolaou smear with manual screening 43 U/L 15-37 [facility] Comment on above: Moderate Hemolysis, Result may be falsely increased. Thin prep Papanicolaou smear with manual screening 6 5-15 [facility] Basic metabolic 2000 panelon 07-24-2023 Anion gap [Moles/Vol] 16 mmol/L 9 - 18 mmol/L [facility] Calcium [Mass/Vol] 9.6 mg/dL 8.5 - 10. 2 mg/dL [facility] Chloride [Moles/Vol] 105 mmol/L 97 - 10 5 mmol/L [facility] CO2 [Moles/Vol] 19 mmol/L Low 22 - 30 mmol/L [facility] Creatinine [Mass/Vol] 1.16 mg/dL High 0.58 - 0.96 mg/dL [facility] Estimated Glomerular Filtration Rate 50 mL/min/1.73m Low >=60 mL/min/1.73 m [facility] Glucose [Mass/Vol] 108 mg/dL High 74 - 99 mg/dL [facility] Potassium [Moles/Vol] 4.4 mmol/L 3.7 - 5.1 mmol/L [facility] Sodium [Moles/Vol] 140 mmol/L 136 - 144 mmol/L [facility] Urea nitrogen [Mass/Vol] 14 mg/dL 7 - 21 mg/dL [facility] CBC panel Auto (Bld)on 07-24 Erythrocyte distribution width (RBC) [Ratio] 15.0 % 11.5 - 15.0 % [facility] Hematocrit (Bld) [Volume fraction] 34.3 % Low 36.0 - 46.0 % [facility] Hemoglobin (Bld) [Mass/Vol] 11.0 g/dL Low 11.5 - 15.5 g/dL [facility] MCH (RBC) [Entitic mass] 28.4 pg 26.0 - 34.0 pg [facility] MCHC (RBC) [Mass/Vol] 32.1 g/dL 30.5 - 36.0 g/dL [facility] MCV (RBC) [Entitic vol] 88.4 fL 80.0 - 100.0 fL [facility] Nucleated RBC (Bld) [#/Vol] <0.01 k/uL [facility] Platelet mean volume (Bld) [Entitic vol] 10.3 fL 9.0 - 12.7 fL [facility] Platelets (Bld) [#/Vol] 427 10*3/uL High 150 - 400 k/uL [facility] RBC (Bld) [#/Vol] 3.88 10*6/uL Low 3.90 - 5.2 0 m/uL [facility] WBC (Bld) [#/Vol] 9.61 10*3/uL 3.70 - 11.00 k/uL [facility] TSH BLDon 07-24-2023 TSH Qn 2.150 m[IU]/L 0.270 - 4.200 mIU/L [facility] XR CHEST 2V FRONTAL/LATon [facility] Basophil percentageOrdered B y: Matt Dominguez on 04-01-2023 Lactate [Moles/Vol] 1.2 mmol/L 0.4-2.0 [facility] Basophil percentage 0 SEEN /hpf 0-5 [facility] Bilirubin Test strip Ql (U)O rdered By: Matt Dominguez on 04-01-2023 Bilirubin Ql (U) Negative Negative [facility] Ketones Test strip Ql (U)Ord ered By: Matt Dominguez on 04-01-2023 Ketones Ql (U) 5 mg/dl Negative [facility] Mucus LM Ql (Urine sed)Order ed By: Matt Dominguez on 04-01-2023 Mucus Ql (Urine sed) 0 SEEN /hpf [facility] Nitrite Test strip Ql (U)Ord ered By: Matt Dominguez on 04-01-2023 Nitrite Ql (U) Negative Negative [facility] Protein Test strip Ql (U)Ord ered By: Matt Dominguez on 04-01-2023 Protein Ql (U) 15 mg/dl Negative [facility] Squamous epithelial cells de tection in urine sediment by light microscopyOrdered By: Matt Dominguez on 04-01-2023 Epithelial cells.squamous LM Ql (Urine sed) 0 SEEN /hpf 5-10 [facility] Urine blood detectionOrdered By: Matt Dominguez on 04-01-2023 RBC Ql (U) 10 /ul Negative [facility] RBC Ql (U) 0 SEEN /hpf 0-5 [facility] Urine clarityOrdered By: Madi Dominguez on 04-01-2023 Clarity (U) Clear Clear [facility] Urine color determinationOrd ered By: Matt Dominguez on 04-01-2023 Color (U) Yellow Yellow [facility] Urine glucose detectionOrder ed By: Matt Dominguez on 04-01-2023 Glucose Ql (U) Normal mg/dl Normal [facility] Urine leukocyte esterase det ection by dipstickOrdered By: Matt Dominguez on 04-01-2023 Leukocyte esterase Test strip Ql (U) 25 /ul Negative [facility] Urine pHOrdered By: Matt ramos on 04-01-2023 pH (U) 7.0 [pH] 5.0 - 8.0 [facility] Urine sediment bacteria coun t by microscopy (number/high power field)Ordered By: aMtt Dominguez on 04-01-2023 Bacteria LM.HPF (Urine sed) [#/Area] 0 /[HPF] None Seen [facility] Urine specific gravity measu rementOrdered By: Matt Dominguez on 04-01-2023 Specific gravity (U) [Rel density] 1.005 1.002-1.030 [facility] Urobilinogen Auto test strip Ql (U)Ordered By: Matt Dominguez on 04-01-2023 Urobilinogen Ql (U) Normal mg/dl Normal [facility] Absolute lymphocyte countOrd ered By: Matt Dominguez on 03-31-2023 Lymphocytes Auto (Unsp spec) [#/Vol] 3.32 10*3/uL 0.83-4.51 [facility] Basophil percentageOrdered B y: Matt Dominguez on 03-31-2023 Basophils/100 WBC (Bld) 0.3 % 0-1 [facility] Bilirubin [Mass/Vol] 0.70 mg/dL 0.20-1.00 [facility] Comment on above: For patients on eltr ombopag therapy, use of [place] TBIL is not recommended. Chloride [Moles/Vol] 103 mmol/L 98-107 [facility] Eosinophils/100 WBC (Bld) 0.2 % 0-5 [facility] Glucose [Mass/Vol] 124 mg/dL 74-106 [facility] Comment on above: Fasting Glucose resu lt from 100 to 125 mg/dL suggests IMPAIRED HOMEOSTASIS per A.D.A. criteria. Neutrophils (Bld) [#/Vol] 6.2 10*3/uL 2.0-7.7 [facility] Neutrophils/100 WBC (Bld) 59.3 % 47-70 [facility] Potassium [Moles/Vol] 3.4 mmol/L 3.5-5.1 [facility] Protein [Mass/Vol] 7.5 g/dL 6.4-8.2 [facility] Sodium [Moles/Vol] 136 mmol/L 136-145 [facility] WBC (Bld) [#/Vol] 10.4 10*3/uL 4.4-11.0 [facility] Blood erythrocytes count (nu mber/volume)Ordered By: Matt Dominguez on 03-31-2023 RBC (Bld) [#/Vol] 3.95 10*6/uL 4.2-5.4 [facility] Blood hemoglobin measurement (mass/volume)Ordered By: Matt Dominguez on 03-31-2023 Hemoglobin (Bld) [Mass/Vol] 11.2 g/dL 12.0-15.0 [facility] Blood lymphocytes/100 leukoc ytesOrdered By: Matt Dominguez on 03-31-2023 Lymphocytes/100 WBC (Bld) 31.9 % 19-41 [facility] Blood monocytes/100 leukocyt esOrdered By: Matt Dominguez on 03-31-2023 Monocytes/100 WBC (Bld) 7.2 % 0-10 [facility] Blood platelet mean volumeOr dered By: Matt Dominguez on 03-31-2023 Platelet mean volume (Bld) [Entitic vol] 10.2 fL 6.2-12.0 [facility] Determination of erythrocyte mean corpuscular volume (MCV)Ordered By: Matt Dominguez on 03-31-2023 MCV (RBC) [Entitic vol] 87.8 fL 81-99 [facility] Direct bilirubinOrdered By: Matt Dominguez on 03-31-2023 Bilirubin.direct [Mass/Vol] 0.20 mg/dL 0.00-0.30 [facility] Hematocrit Auto (Bld) [Volum e fraction]Ordered By: Matt Dominguez on 03-31-2023 Hematocrit (Bld) [Volume fraction] 34.7 % 37-47 [facility] Laboratory - Chemistry and C hemistry - challengeOrdered By: Matt Dominguez on 03-31-2023 ALP [Catalytic activity/Vol] 128 U/L 45-117 [facility] ALT [Catalytic activity/Vol] 24 U/L 13-56 [facility] CO2 [Moles/Vol] 20.0 mmol/L 21.0-32.0 [facility] Globulin (S) [Mass/Vol] 3.9 g/dL 2.2-4.2 [facility] Lipase [Catalytic activity/Vol] 21 U/L 13-75 [facility] Comment on above: Please note:LIPASE r evised reference range effective 22. New Lipase methodology. Expected to produce lower values than the previous assay method. NEW Reference Range: 13 - 75 U/L Urea nitrogen/Creatinine [Mass ratio] 6.9 mg/mg 10-20 [facility] Laboratory - Hematology and Cell countsOrdered By: Matt Dominguez on 03-31-2023 Erythrocyte distribution width (RBC) [Entitic vol] 44.0 fL 35.1-43.9 [facility] Erythrocyte distribution width (RBC) [Ratio] 13.7 % 11.6-14.6 [facility] Immature granulocytes/100 WBC (Bld) 1.100 % 0.0-0.9 [facility] Comment on above: IG% - Immature Granu locytes (promyelocytes, myelocytes and metamyelocytes) > 1% indicates that a LEFT SHIFT is Present. MCH (RBC) [Entitic mass] 28.4 pg 27.0-32.0 [facility] Nucleated RBC/100 WBC (Bld) [Ratio] 0 % 0-5 [facility] MCHC Auto (RBC) [Mass/Vol]Or dered By: Matt Dominguez on 03-31-2023 MCHC (RBC) [Mass/Vol] 32.3 g/dL 32-36 [facility] No Panel InformationOrdered By: Matt Dominguez on 03-31-2023 Estimated Creatinine Clearance Calc 29.72 ml/min [facility] Estimated GFR (MDRD) Amer 51 mL/min >60 [facility] Comment on above: GFR Calc Estimated GFR (MDRD) Non-Af Amer 42 mL/min >60 [facility] Comment on above: Non- GFR Calc Platelets bldOrdered By: Madi Dominguez on 03-31-2023 Platelets (Bld) [#/Vol] 464 10*3/uL 150-450 [facility] Serum or plasma albumin franck urement (mass/volume)Ordered By: Matt Dominguez on 03-31-2023 Albumin [Mass/Vol] 3.6 g/dL 3.2-5.0 [facility] Serum or plasma calcium franck urement (mass/volume)Ordered By: Matt Dominguez on 03-31-2023 Calcium [Mass/Vol] 9.3 mg/dL 8.5-10.1 [facility] Serum or plasma creatinine m easurement (mass/volume)Ordered By: Matt Dominguez on 03-31-2023 Creatinine [Mass/Vol] 1.31 mg/dL 0.55-1.02 [facility] Comment on above: The validity of the calculated GFR & GFRAA in patients over 70 years has not been determined. Clinical correlation is essential. Serum or plasma urea nitroge n measurement (mass/volume)Ordered By: Matt Dominguez on 03-31-2023 Urea nitrogen [Mass/Vol] 9 mg/dL 7-18 [facility] Thin prep Papanicolaou smear with manual screeningOrdered By: Matt Dominguez on 03-31-2023 Thin prep Papanicolaou smear with manual screening 19 U/L 15-37 [facility] Thin prep Papanicolaou smear with manual screening 13 5-15 [facility] Absolute lymphocyte countOrd ered By: Ivon Oliver on 03-18-2023 Lymphocytes Auto (Unsp spec) [#/Vol] 2.21 10*3/uL 0.83-4.51 [facility] Basophil percentageOrdered B y: Ivon Oliver on 03-18-2023 Basophils/100 WBC (Bld) 0.7 % 0-1 [facility] Bilirubin [Mass/Vol] 1.00 mg/dL 0.20-1.00 [facility] Comment on above: For patients on eltr ombopag therapy, use of [place] TBIL is not recommended. Chloride [Moles/Vol] 111 mmol/L 98-107 [facility] Eosinophils/100 WBC (Bld) 1.9 % 0-5 [facility] Glucose [Mass/Vol] 84 mg/dL 74-106 [facility] Neutrophils (Bld) [#/Vol] 4.4 10*3/uL 2.0-7.7 [facility] Neutrophils/100 WBC (Bld) 59.2 % 47-70 [facility] Potassium [Moles/Vol] 3.6 mmol/L 3.5-5.1 [facility] Protein [Mass/Vol] 6.1 g/dL 6.4-8.2 [facility] Sodium [Moles/Vol] 138 mmol/L 136-145 [facility] WBC (Bld) [#/Vol] 7.5 10*3/uL 4.4-11.0 [facility] Blood erythrocytes count (nu mber/volume)Ordered By: Ivon Oliver on 03-18-2023 RBC (Bld) [#/Vol] 3.15 10*6/uL 4.2-5.4 [facility] Blood hemoglobin measurement (mass/volume)Ordered By: Ivon Oliver on 03-18-2023 Hemoglobin (Bld) [Mass/Vol] 9.1 g/dL 12.0-15.0 [facility] Blood lymphocytes/100 leukoc ytesOrdered By: Ivon Oliver on 03-18-2023 Lymphocytes/100 WBC (Bld) 29.6 % 19-41 [facility] Blood monocytes/100 leukocyt esOrdered By: Ivon Oliver on 03-18-2023 Monocytes/100 WBC (Bld) 8.2 % 0-10 [facility] Blood platelet mean volumeOr dered By: Ivon Oliver on 03-18-2023 Platelet mean volume (Bld) [Entitic vol] 11.0 fL 6.2-12.0 [facility] Determination of erythrocyte mean corpuscular volume (MCV)Ordered By: Ivon Oliver on 03-18-2023 MCV (RBC) [Entitic vol] 92.1 fL 81-99 [facility] Hematocrit Auto (Bld) [Volum e fraction]Ordered By: Ivon Oliver on 03-18-2023 Hematocrit (Bld) [Volume fraction] 29.0 % 37-47 [facility] Laboratory - Chemistry and C hemistry - challengeOrdered By: Ivon Oliver on 03-18-2023 ALP [Catalytic activity/Vol] 158 U/L 45-117 [facility] ALT [Catalytic activity/Vol] 101 U/L 13-56 [facility] CO2 [Moles/Vol] 21.0 mmol/L 21.0-32.0 [facility] Globulin (S) [Mass/Vol] 3.4 g/dL 2.2-4.2 [facility] Urea nitrogen/Creatinine [Mass ratio] 8.0 mg/mg 10-20 [facility] Laboratory - Hematology and Cell countsOrdered By: Ivon Oliver on 03-18-2023 Erythrocyte distribution width (RBC) [Entitic vol] 48.2 fL 35.1-43.9 [facility] Erythrocyte distribution width (RBC) [Ratio] 14.3 % 11.6-14.6 [facility] Immature granulocytes/100 WBC (Bld) 0.400 % 0.0-0.9 [facility] Comment on above: IG% - Immature Granu locytes (promyelocytes, myelocytes and metamyelocytes) > 1% indicates that a LEFT SHIFT is Present. MCH (RBC) [Entitic mass] 28.9 pg 27.0-32.0 [facility] Nucleated RBC/100 WBC (Bld) [Ratio] 0 % 0-5 [facility] MCHC Auto (RBC) [Mass/Vol]Or dered By: Ivon Oliver on 03-18-2023 MCHC (RBC) [Mass/Vol] 31.4 g/dL 32-36 [facility] No Panel InformationOrdered By: Ivon Oliver on 03-18-2023 Estimated Creatinine Clearance Calc 44.25 ml/min [facility] Estimated GFR (MDRD) Amer 82 mL/min >60 [facility] Comment on above: GFR Calc Estimated GFR (MDRD) Non-Af Amer 68 mL/min >60 [facility] Comment on above: Non- GFR Calc Platelets bldOrdered By: Neetu Oliver on 03-18-2023 Platelets (Bld) [#/Vol] 281 10*3/uL 150-450 [facility] Serum or plasma albumin franck urement (mass/volume)Ordered By: Ivon Oliver on 03-18-2023 Albumin [Mass/Vol] 2.7 g/dL 3.2-5.0 [facility] Serum or plasma albumin/glob ulin mass ratioOrdered By: Ivon Oliver on 03-18-2023 Albumin/Globulin [Mass ratio] 0.8 {ratio} 0.9-2.4 [facility] Serum or plasma calcium franck urement (mass/volume)Ordered By: Ivon Oliver on 03-18-2023 Calcium [Mass/Vol] 8.4 mg/dL 8.5-10.1 [facility] Serum or plasma creatinine m easurement (mass/volume)Ordered By: Ivon Oliver on 03-18-2023 Creatinine [Mass/Vol] 0.88 mg/dL 0.55-1.02 [facility] Comment on above: The validity of the calculated GFR & GFRAA in patients over 70 years has not been determined. Clinical correlation is essential. Serum or plasma urea nitroge n measurement (mass/volume)Ordered By: Ivon Oliver on 03-18-2023 Urea nitrogen [Mass/Vol] 7 mg/dL 7-18 [facility] Thin prep Papanicolaou smear with manual screeningOrdered By: Ivon Oliver on 03-18-2023 Thin prep Papanicolaou smear with manual screening 81 U/L 15-37 [facility] Thin prep Papanicolaou smear with manual screening 6 5-15 [facility] Absolute lymphocyte countOrd ered By: Jose Stanton on 03-16-2023 Lymphocytes Auto (Unsp spec) [#/Vol] 3.41 10*3/uL 0.83-4.51 [facility] Basophil percentageOrdered B y: Jose Stanton on 03-16-2023 Basophil percentage 0-5 SEEN /hpf 0-5 [facility] Basophils/100 WBC (Bld) 1.1 % 0-1 [facility] Bilirubin [Mass/Vol] 0.60 mg/dL 0.20-1.00 [facility] Comment on above: For patients on eltr ombopag therapy, use of [place] TBIL is not recommended. Chloride [Moles/Vol] 109 mmol/L 98-107 [facility] Eosinophils/100 WBC (Bld) 1.1 % 0-5 [facility] Glucose [Mass/Vol] 100 mg/dL 74-106 [facility] Comment on above: Fasting Glucose resu lt from 100 to 125 mg/dL suggests IMPAIRED HOMEOSTASIS per A.D.A. criteria. Neutrophils (Bld) [#/Vol] 4.1 10*3/uL 2.0-7.7 [facility] Neutrophils/100 WBC (Bld) 48.5 % 47-70 [facility] Potassium [Moles/Vol] 4.1 mmol/L 3.5-5.1 [facility] Protein [Mass/Vol] 7.5 g/dL 6.4-8.2 [facility] Sodium [Moles/Vol] 139 mmol/L 136-145 [facility] WBC (Bld) [#/Vol] 8.4 10*3/uL 4.4-11.0 [facility] Bilirubin Test strip Ql (U)O rdered By: Jose Stanton on 03-16-2023 Bilirubin Ql (U) Negative Negative [facility] Blood erythrocytes count (nu mber/volume)Ordered By: Jose Stanton on 03-16-2023 RBC (Bld) [#/Vol] 3.96 10*6/uL 4.2-5.4 [facility] Blood hemoglobin measurement (mass/volume)Ordered By: Jose Stanton on 03-16-2023 Hemoglobin (Bld) [Mass/Vol] 11.4 g/dL 12.0-15.0 [facility] Blood lymphocytes/100 leukoc ytesOrdered By: Jose Stanton on 03-16-2023 Lymphocytes/100 WBC (Bld) 40.6 % 19-41 [facility] Blood monocytes/100 leukocyt esOrdered By: Jose Stanton on 03-16-2023 Monocytes/100 WBC (Bld) 8.3 % 0-10 [facility] Blood platelet mean volumeOr dered By: Jose Stanton on 03-16-2023 Platelet mean volume (Bld) [Entitic vol] 10.0 fL 6.2-12.0 [facility] Determination of erythrocyte mean corpuscular volume (MCV)Ordered By: Jose Stanton on 03-16-2023 MCV (RBC) [Entitic vol] 89.4 fL 81-99 [facility] Hematocrit Auto (Bld) [Volum e fraction]Ordered By: Jose Stanton on 03-16-2023 Hematocrit (Bld) [Volume fraction] 35.4 % 37-47 [facility] Ketones Test strip Ql (U)Ord ered By: Jose Stanton on 03-16-2023 Ketones Ql (U) Negative Negative [facility] Laboratory - Chemistry and C hemistry - challengeOrdered By: Jose Stanton on 03-16-2023 ALP [Catalytic activity/Vol] 105 U/L 45-117 [facility] ALT [Catalytic activity/Vol] 18 U/L 13-56 [facility] CO2 [Moles/Vol] 23.0 mmol/L 21.0-32.0 [facility] Globulin (S) [Mass/Vol] 3.9 g/dL 2.2-4.2 [facility] Urea nitrogen/Creatinine [Mass ratio] 12.1 mg/mg 10-20 [facility] Laboratory - Hematology and Cell countsOrdered By: Jose Stanton on 03-16-2023 Erythrocyte distribution width (RBC) [Entitic vol] 49.0 fL 35.1-43.9 [facility] Erythrocyte distribution width (RBC) [Ratio] 14.7 % 11.6-14.6 [facility] Immature granulocytes/100 WBC (Bld) 0.400 % 0.0-0.9 [facility] Comment on above: IG% - Immature Granu locytes (promyelocytes, myelocytes and metamyelocytes) > 1% indicates that a LEFT SHIFT is Present. MCH (RBC) [Entitic mass] 28.8 pg 27.0-32.0 [facility] Nucleated RBC/100 WBC (Bld) [Ratio] 0 % 0-5 [facility] MCHC Auto (RBC) [Mass/Vol]Or dered By: Jose Stanton on 03-16-2023 MCHC (RBC) [Mass/Vol] 32.2 g/dL 32-36 [facility] Mucus LM Ql (Urine sed)Order ed By: Jose Stanton on 03-16-2023 Mucus Ql (Urine sed) 0 SEEN /hpf [facility] Nitrite Test strip Ql (U)Ord ered By: Jose Stanton on 03-16-2023 Nitrite Ql (U) Negative Negative [facility] No Panel InformationOrdered By: Jose Stanton on 03-16-2023 Estimated Creatinine Clearance Calc 26.13 ml/min [facility] Estimated GFR (MDRD) Amer 44 mL/min >60 [facility] Comment on above: GFR Calc Estimated GFR (MDRD) Non-Af Amer 37 mL/min >60 [facility] Comment on above: Non- GFR Calc Platelets bldOrdered By: Sania Stanton on 03-16-2023 Platelets (Bld) [#/Vol] 361 10*3/uL 150-450 [facility] Protein Test strip Ql (U)Ord ered By: Jose Stanton on 03-16-2023 Protein Ql (U) Negative Negative [facility] Serum or plasma albumin franck urement (mass/volume)Ordered By: Jose Stanton on 03-16-2023 Albumin [Mass/Vol] 3.6 g/dL 3.2-5.0 [facility] Serum or plasma albumin/glob ulin mass ratioOrdered By: Jose Stanton on 03-16-2023 Albumin/Globulin [Mass ratio] 0.9 {ratio} 0.9-2.4 [facility] Serum or plasma calcium franck urement (mass/volume)Ordered By: Jose Stanton on 03-16-2023 Calcium [Mass/Vol] 9.0 mg/dL 8.5-10.1 [facility] Serum or plasma creatinine m easurement (mass/volume)Ordered By: Jose Stanton on 03-16-2023 Creatinine [Mass/Vol] 1.49 mg/dL 0.55-1.02 [facility] Comment on above: The validity of the calculated GFR & GFRAA in patients over 70 years has not been determined. Clinical correlation is essential. Serum or plasma urea nitroge n measurement (mass/volume)Ordered By: Jose Stanton on 03-16-2023 Urea nitrogen [Mass/Vol] 18 mg/dL 7-18 [facility] Squamous epithelial cells de tection in urine sediment by light microscopyOrdered By: Jose Stanton on 03-16-2023 Epithelial cells.squamous LM Ql (Urine sed) 0 SEEN /hpf 5-10 [facility] Thin prep Papanicolaou smear with manual screeningOrdered By: Jose Stanton on 03-16-2023 Thin prep Papanicolaou smear with manual screening 18 U/L 15-37 [facility] Thin prep Papanicolaou smear with manual screening 7 5-15 [facility] Urine blood detectionOrdered By: Jose Stanton on 03-16-2023 RBC Ql (U) Negative Negative [facility] RBC Ql (U) 0 SEEN /hpf 0-5 [facility] Urine clarityOrdered By: Sania Stanton on 03-16-2023 Clarity (U) Clear Clear [facility] Urine color determinationOrd ered By: Jose Stanton on 03-16-2023 Color (U) Yellow Yellow [facility] Urine glucose detectionOrder ed By: Jose Stanton on 03-16-2023 Glucose Ql (U) Normal mg/dl Normal [facility] Urine leukocyte esterase det ection by dipstickOrdered By: Jose Stanton on 03-16-2023 Leukocyte esterase Test strip Ql (U) 25 /ul Negative [facility] Urine pHOrdered By: Jose Stanton on 03-16-2023 pH (U) 6.0 [pH] 5.0 - 8.0 [facility] Urine sediment bacteria coun t by microscopy (number/high power field)Ordered By: Jose Stanton on 03-16-2023 Bacteria LM.HPF (Urine sed) [#/Area] 0 /[HPF] None Seen [facility] Urine specific gravity measu rementOrdered By: Jose Stanton on 03-16-2023 Specific gravity (U) [Rel density] 1.010 1.002-1.030 [facility] Urobilinogen Auto test strip Ql (U)Ordered By: Jose Stanton on 03-16-2023 Urobilinogen Ql (U) Normal mg/dl Normal [facility] Absolute lymphocyte countOrd ered By: Dr. Anderson on 12-11-2022 Lymphocytes Auto (Unsp spec) [#/Vol] 2.86 10*3/uL 0.83-4.51 [facility] Basophil percentageOrdered B y: Dr. Anderson on 12-11-2022 Basophils/100 WBC (Bld) 0.6 % 0-1 [facility] Chloride [Moles/Vol] 112 mmol/L 98-107 [facility] Eosinophils/100 WBC (Bld) 2.1 % 0-5 [facility] Glucose [Mass/Vol] 103 mg/dL 74-106 [facility] Comment on above: Fasting Glucose resu lt from 100 to 125 mg/dL suggests IMPAIRED HOMEOSTASIS per A.D.A. criteria. Neutrophils (Bld) [#/Vol] 5.3 10*3/uL 2.0-7.7 [facility] Neutrophils/100 WBC (Bld) 57.1 % 47-70 [facility] Potassium [Moles/Vol] 4.1 mmol/L 3.5-5.1 [facility] Sodium [Moles/Vol] 139 mmol/L 136-145 [facility] WBC (Bld) [#/Vol] 9.4 10*3/uL 4.4-11.0 [facility] Blood erythrocytes count (nu mber/volume)Ordered By: Dr. Anderson on 12-11-2022 RBC (Bld) [#/Vol] 3.66 10*6/uL 4.2-5.4 [facility] Blood hemoglobin measurement (mass/volume)Ordered By: Dr. Anderson on 12-11-2022 Hemoglobin (Bld) [Mass/Vol] 10.9 g/dL 12.0-15.0 [facility] Blood lymphocytes/100 leukoc ytesOrdered By: Dr. Anderson on 12-11-2022 Lymphocytes/100 WBC (Bld) 30.6 % 19-41 [facility] Blood monocytes/100 leukocyt esOrdered By: Dr. Anderson on 12-11-2022 Monocytes/100 WBC (Bld) 9.3 % 0-10 [facility] Blood platelet mean volumeOr dered By: Dr. Anderson on 12-11-2022 Platelet mean volume (Bld) [Entitic vol] 9.4 fL 6.2-12.0 [facility] Determination of erythrocyte mean corpuscular volume (MCV)Ordered By: Dr. Anderson on 12-11-2022 MCV (RBC) [Entitic vol] 88.8 fL 81-99 [facility] Hematocrit Auto (Bld) [Volum e fraction]Ordered By: Dr. Anderson on 12-11-2022 Hematocrit (Bld) [Volume fraction] 32.5 % 37-47 [facility] Laboratory - Chemistry and C hemistry - challengeOrdered By: Dr. Anderson on 12-11-2022 CO2 [Moles/Vol] 22.0 mmol/L 21.0-32.0 [facility] Urea nitrogen/Creatinine [Mass ratio] 13.6 mg/mg 10-20 [facility] Laboratory - Hematology and Cell countsOrdered By: Dr. Anderson on 12-11-2022 Erythrocyte distribution width (RBC) [Entitic vol] 45.2 fL 35.1-43.9 [facility] Erythrocyte distribution width (RBC) [Ratio] 13.9 % 11.6-14.6 [facility] Immature granulocytes/100 WBC (Bld) 0.300 % 0.0-0.9 [facility] Comment on above: IG% - Immature Granu locytes (promyelocytes, myelocytes and metamyelocytes) > 1% indicates that a LEFT SHIFT is Present. MCH (RBC) [Entitic mass] 29.8 pg 27.0-32.0 [facility] Nucleated RBC/100 WBC (Bld) [Ratio] 0 % 0-5 [facility] MCHC Auto (RBC) [Mass/Vol]Or dered By: Dr. Anderson on 12-11-2022 MCHC (RBC) [Mass/Vol] 33.5 g/dL 32-36 [facility] No Panel InformationOrdered By: Dr. Anderson on 12-11-2022 Estimated Creatinine Clearance Calc 30.92 ml/min [facility] Estimated GFR (MDRD) Amer 51 mL/min >60 [facility] Comment on above: GFR Calc Estimated GFR (MDRD) Non-Af Amer 42 mL/min >60 [facility] Comment on above: Non- GFR Calc Platelets bldOrdered By: Dr. Anderson on 12-11-2022 Platelets (Bld) [#/Vol] 418 10*3/uL 150-450 [facility] Serum or plasma calcium franck urement (mass/volume)Ordered By: Dr. Anderson on 12-11-2022 Calcium [Mass/Vol] 8.7 mg/dL 8.5-10.1 [facility] Serum or plasma creatinine m easurement (mass/volume)Ordered By: Dr. Anderson on 12-11-2022 Creatinine [Mass/Vol] 1.32 mg/dL 0.55-1.02 [facility] Comment on above: The validity of the calculated GFR & GFRAA in patients over 70 years has not been determined. Clinical correlation is essential. Serum or plasma urea nitroge n measurement (mass/volume)Ordered By: Dr. Anderson on 12-11-2022 Urea nitrogen [Mass/Vol] 18 mg/dL 04-03 [facility] Thin prep Papanicolaou smear with manual screeningOrdered By: Dr. Anderson on 12-11-2022 Thin prep Papanicolaou smear with manual screening 5 01-29 [facility] [id number] 11-24-2022 HbA1c (Bld) [Mass fraction] 5.5 % Normal 4.3-6.1 [facility] Comment on above: Result Comment: Estimated Average Glucose: HgbA1C % mg/dL 4.0 68 5.0 97 6.0 125 7.0 154 8.0 183 9.0 212 10.0 240 Source: [place] web site, 2017. Performed By: #### L [id number] #### [facility] [address] [place] [address] [id number] BMPon 11-23-2022 Anion gap [Moles/Vol] 17.5 mmol/L Normal 15-22 [facility] Comment on above: Performed By: #### L [id number] #### [facility] [address] [place] [address] [phone] Calcium [Mass/Vol] 9.7 mg/dL Normal 8.8-10.2 [facility] Comment on above: Performed By: #### [id number] #### [facility] [address] [place] [address] 33048 Chloride [Moles/Vol] 104 mmol/L Normal 98-107 [facility] Comment on above: Performed By: #### [id number] #### [facility] [address] [place] [address] 90013 CO2 [Moles/Vol] 21 mmol/L Low 22-29 [facility] Comment on above: Performed By: #### [id number] #### [facility] [address] [place] [address] 76128 Creatinine [Mass/Vol] 1.11 mg/dL High 0.50-0.90 [facility] Comment on above: Performed By: #### L [id number] #### [facility] [address] [place] [address] 64740 eGFR if AFR ELOISA 59 [facility] Comment on above: Result Comment: eGFR [...] Performed By: #### L [id number] #### [facility] [address] [place] [address] 37358 eGFR nonAFR Eloisa 48 [facility] Comment on above: Performed By: #### L [id number] #### [facility] [address] [place] [address] 28969 Glucose [Mass/Vol] 106 mg/dL Normal 82-115 [facility] Comment on above: Performed By: #### [id number] #### [facility] [address] [place] [address] 06854 Potassium [Moles/Vol] 4.5 mmol/L Normal 3.5-5.0 [facility] Comment on above: Performed By: #### L [id number] #### [facility] [address] [place] [address] 64749 Sodium [Moles/Vol] 138 mmol/L Normal 135-145 [facility] Comment on above: Performed By: #### [id number] #### [facility] [address] [place] [address] 89104 Urea nitrogen [Mass/Vol] 20 mg/dL Normal 8-23 [facility] Comment on above: Performed By: #### L [id number] #### [facility] [address] [place] [address] 47880 Basic metabolic 2000 panelon 11-23-2022 Anion gap [Moles/Vol] 17.5 mmol/L 15 - 2 2 mmol/L [facility] Calcium [Mass/Vol] 9.7 mg/dL 8.8 - 10. 2 mg/dL [facility] Chloride [Moles/Vol] 104 mmol/L 98 - 10 7 mmol/L [facility] CO2 [Moles/Vol] 21 mmol/L Low 22 - 29 mmol/L [facility] Creatinine [Mass/Vol] 1.11 mg/dL High 0.50 - 0.90 mg/dL [facility] eGFR-All Other Races 48 [facility] GFR/1.73 sq M.predicted among blacks MDRD (S/P/Bld) [Vol rate/Area] 59 mL/min/{1.73_m2} [facility] Glucose [Mass/Vol] 106 mg/dL 82 - 115 mg/dL [facility] Potassium [Moles/Vol] 4.5 mmol/L 3.5 - 5.0 mmol/L [facility] Sodium [Moles/Vol] 138 mmol/L 135 - 145 mmol/L [facility] Urea nitrogen [Mass/Vol] 20 mg/dL 8 - 23 mg/dL [facility] CBCon 11-23-2022 BASO# 0.10 x10(3) Normal 0.00-0.10 [facility] Comment on above: Performed By: #### L [id number] #### [facility] [address] [place] [address] 75837 Basophils/100 WBC (Bld) 1.1 % High 0.0-1.0 [facility] Comment on above: Performed By: #### L [id number] #### [facility] [address] [place] [address] 70239 EOS# 0.30 x10(3) Normal 0.00-0.54 [facility] Comment on above: Performed By: #### L [id number] #### [facility] [address] [place] [address] 10765 Eosinophils/100 WBC (Bld) 3.2 % Normal 0.5-4.9 [facility] Comment on above: Performed By: #### L [id number] #### [facility] [address] [place] [address] 54194 Erythrocyte distribution width (RBC) [Ratio] 14.7 % Normal 12.5-15.7 [facility] Comment on above: Performed By: #### L [id number] #### [facility] [address] [place] [address] 42819 Hematocrit (Bld) [Volume fraction] 35.1 % Low 36.0-48.0 [facility] Comment on above: Performed By: #### L [id number] #### [facility] [address] [place] [address] 69060 Hemoglobin (Bld) [Mass/Vol] 11.6 g/dL Low 12.0-16.0 [facility] Comment on above: Performed By: #### L [id number] #### [facility] [address] [place] [address] 81527 LYMPH# 2.00 x10(3) Normal 1.00-3.50 [facility] Comment on above: Performed By: #### L [id number] #### [facility] [address] [place] [address] 66453 Lymphocytes/100 WBC (Bld) 25.8 % Normal 16.0-48.0 [facility] Comment on above: Performed By: #### L [id number] #### [facility] [address] [place] [address] 03079 MCH (RBC) [Entitic mass] 29.6 pg Normal 28.5-32.9 [facility] Comment on above: Performed By: #### L [id number] #### [facility] [address] [place] [address] 27651 MCHC (RBC) [Mass/Vol] 33.1 g/dL Normal 33.0-36.0 [facility] Comment on above: Performed By: #### L [id number] #### [facility] [address] [place] [address] 61377 MCV (RBC) [Entitic vol] 89.6 fL Normal 80.0-99.0 [facility] Comment on above: Performed By: #### L [id number] #### [facility] [address] [place] [address] 57759 MONO# 0.60 x10(3) Normal 0.30-0.80 [facility] Comment on above: Performed By: #### L [id number] #### [facility] [address] [place] [address] 60111 Monocytes/100 WBC (Bld) 7.5 % Normal 4.3-11.2 [facility] Comment on above: Performed By: #### L [id number] #### [facility] [address] [place] [address] 76712 NEUT# 4.90 x10(3) Normal 1.40-6.50 [facility] Comment on above: Performed By: #### L [id number] #### [facility] [address] [place] [address] 50926 Neutrophils/100 WBC (Bld) 62.4 % Normal 45.0-73.0 [facility] Comment on above: Performed By: #### L [id number] #### [facility] [address] [place] [address] 49425 Platelet mean volume (Bld) [Entitic vol] 8.1 fL Normal 7.5-9.5 [facility] Comment on above: Performed By: #### L [id number] #### [facility] [address] [place] [address] 70451 PLT 391 X10(3) Normal 150-450 [facility] Comment on above: Performed By: #### L [id number] #### [facility] [address] [place] [address] [phone] RBC 3.92 x10(6) Normal 3.30-5.00 [facility] Comment on above: Performed By: #### L [id number] #### [facility] [address] [place] [address] WBC 7.8 x10(3) Normal 4.5-10.0 [facility] Comment on above: Performed By: #### L [id number] #### [facility] [address] [place] [address] CBC W Auto Differential pane l (Bld)on 11-23-2022 BASO ABS 0.10 x10(3) 0.00 - 0.10 x10(3) [facility] Basophils/100 WBC (Bld) 1.1 % High 0.0 - 1.0 % [facility] EOS ABS 0.30 x10(3) 0.00 - 0.54 x10(3) [facility] Eosinophils/100 WBC (Bld) 3.2 % 0.5 - 4.9 % [facility] Erythrocyte distribution width (RBC) [Ratio] 14.7 % 12.5 - 15.7 % [facility] Hematocrit (Bld) [Volume fraction] 35.1 % Low 36.0 - 48.0 % [facility] Hemoglobin (Bld) [Mass/Vol] 11.6 g/dL Low 12.0 - 16.0 g/dL [facility] LYMPH ABS 2.00 x10(3) 1.00 - 3.50 x10(3) [facility] Lymphocytes/100 WBC (Bld) 25.8 % 16.0 - 48.0 % [facility] MCH (RBC) [Entitic mass] 29.6 pg 28.5 - 32.9 pg [facility] MCHC (RBC) [Mass/Vol] 33.1 g/dL 33.0 - 36.0 g/dL [facility] MCV (RBC) [Entitic vol] 89.6 fL 80.0 - 99.0 fl [facility] MONO ABS 0.60 x10(3) 0.30 - 0.80 x10(3) [facility] Monocytes/100 WBC (Bld) 7.5 % 4.3 - 11.2 % [facility] Neutrophil Ab 4.90 x10(3) 1.40 - 6.50 x10(3) [facility] Neutrophils/100 WBC (Bld) 62.4 % 45.0 - 73.0 % [facility] Platelet mean volume (Bld) [Entitic vol] 8.1 fL 7.5 - 9.5 fl [facility] Platelets (Bld) [#/Vol] 391 X10(3) 150 - 450 X10(3) [facility] RBC (Bld) [#/Vol] 3.92 x10(6) 3.30 - 5.0 0 x10(6) [facility] WBC (Bld) [#/Vol] 7.8 x10(3) 4.5 - 10.0 x10(3) [facility] HEPATIC PANELon 11-23-2022 A:G RATIO 1.35 Normal 1.1-2.5 [facility] Comment on above: Performed By: #### L 200.0010 #### [facility] [address] [place] [address] 98155 Albumin [Mass/Vol] 4.2 g/dL Normal 3.5-5.2 [facility] Comment on above: Performed By: #### L 200.0010 #### ML [facility] [address] [place] [address] 99775 ALK. PHOS 105 U/L Normal 35-105 [facility] Comment on above: Performed By: #### L 200.0010 #### ML [facility] [address] [place] [address] 86158 ALT [Catalytic activity/Vol] 14 U/L Normal 5-33 [facility] Comment on above: Performed By: #### L 200.0010 #### ML [facility] [address] [place] [address] 50554 AST [Catalytic activity/Vol] 21 U/L Normal 5-32 [facility] Comment on above: Performed By: #### L 200.0010 #### [facility] [address] [place] [address] 43984 Bilirubin [Mass/Vol] 0.3 mg/dL Normal 0.2-1.2 [facility] Comment on above: Performed By: #### L 200.0010 #### [facility] [address] [place] [address] 78401 DIRECT BILIRUBI <0.2 Normal 0.0-0.3 [facility] Comment on above: Performed By: #### L 200.0010 #### [facility] [address] [place] [address] 08369 Globulin (S) [Mass/Vol] 3.1 g/dL Normal 1.5-4.5 [facility] Comment on above: Performed By: #### L 200.0010 #### ML - LAB[facility]AT[facility] [address] [place] [address] 38185 Protein [Mass/Vol] 7.3 g/dL Normal 6.4-8.3 [facility] Comment on above: Performed By: #### L 200.0010 #### [facility] [address] [place] [address] 91679 HbA1c (Bld)on 11-23-2022 HbA1c (Bld) [Mass fraction] 5.5 % 4.3 - 6.1 % [facility] Hepatic function 2000 panelo n 11-23-2022 Albumin [Mass/Vol] 4.2 g/dL 3.5 - 5.2 g/dL [facility] Albumin/Globulin [Mass ratio] 1.35 {ratio} 1.1 - 2.5 [facility] ALP [Catalytic activity/Vol] 105 U/L 35 - 105 U/L [facility] ALT [Catalytic activity/Vol] 14 U/L 5 - 33 U/L [facility] AST [Catalytic activity/Vol] 21 U/L 5 - 32 U/L [facility] Bilirubin [Mass/Vol] 0.3 mg/dL 0.2 - 1 .2 mg/dL [facility] Direct Bilirubin <0.2 0.0 - 0.3 mg/dL [facility] Globulin (S) [Mass/Vol] 3.1 g/dL 1.5 - 4.5 g/dL [facility] Protein [Mass/Vol] 7.3 g/dL 6.4 - 8.3 g/dL [facility] TSHon 11-23-2022 TSH 2.65 uIU/mL Normal 0.270-4.200 [facility] Comment on above: Performed By: #### L 200.0010 #### [facility] [address] [place] [address] 52167 TSH BLDon 11-23-2022 TSH Qn 2.65 uIU/mL 0.270 - 4.200 uIU/mL [facility] EMERGENCY DEPARTMENT REPORTo n 10-16-2022 EMERGENCY [place] [address] HEALTH INFORMATION MANAGEMENT EMERGENCY DEPARTMENT REPORT Patient: ADINA ESCOBARLEO Klein [id number] [age] F Status: DEP ER ED [...] musculoskeletal left thigh pain. Report#: Dict ID [id number] / Int ID [id number] cc: Kentrell Dhaliwal III, MD 10/16/22 1252 LEO EMERSON M.D. cc: LEO EMERSON M.D.; KENTRELL DHALIWAL II, M.D.; No Physician << Signature on File>> Reported By: LEO EMERSON M.D. Signed By: LEO EMERSON M.D. Tests performed at: [address] [address] Normal [facility] LEG VEIN DVT UNL VAS LABo n 10-16-2022 [facility] VENOUS DUPLEX OF SINGLE LEGo n 10-16-2022 VENOUS [place] [address] Vascular Lab - [facility]CA[facility] Accredited in: Extracranial Cerebrovascular, Visceral Vascular, Vascular Screening & Peripheral Arterial & Venous Testing [employer] REPORT Patient: ADINA ESCOBAR I Ord Dr: LEO EMERSON M.D. [id number] [age] F Status: REG CLI CARD Reason for Visit: PAIN LLE Service Date: 10/16/22 Access#: [id number] Procedure: VENOUS DUPLEX OF SINGLE LEG Conclusions: Left 1. Negative for deep venous thrombosis 2. Negative for superficial venous thrombosis Abbreviated Final Report. Full Report available via Link to [employer] in [employer] . Electronically Signed by: LEO JONES M.D. 10/17/22 0820 LOE JONES M.D. cc: LEO EMERSON M.D. << Signature on File>> Reported By: LEO JONES M.D. Signed By: LEO JONES M.D. Tests performed at: [address] [address] [facility] BMPon 10-14-2022 Anion gap [Moles/Vol] 20.9 mmol/L Normal 15-22 [facility] Comment on above: Performed By: #### L 200.3190, L200.3001 #### ML - [facility]AT[facility] [address] [place] [address] 69081 Calcium [Mass/Vol] 9.8 mg/dL Normal 8.8-10.2 [facility] Comment on above: Performed By: #### L 200.3190, L200.3001 #### [facility] [address] [place] [address] 19517 Chloride [Moles/Vol] 100 mmol/L Normal 98-107 [facility] Comment on above: Performed By: #### L 200.3190, L200.3001 #### [facility] [address] [place] [address] 87495 CO2 [Moles/Vol] 20 mmol/L Low 22-29 [facility] Comment on above: Performed By: #### L 200.3190, L200.3001 #### [facility] [address] [place] [address] 72896 Creatinine [Mass/Vol] 1.34 mg/dL High 0.50-0.90 [facility] Comment on above: Performed By: #### L 200.3190, L200.3001 #### [facility] [address] [place] [address] 47523 eGFR if AFR ELOISA 47 [facility] Comment on above: Result Comment: eGFR [...] Performed By: #### L 200.3190, L200.3001 #### [facility] [address] [place] [address] 73720 eGFR nonAFR Eloisa 39 Normal [facility] Comment on above: Performed By: #### L 200.3190, L200.3001 #### [facility] [address] [place] [address] 38118 Glucose [Mass/Vol] 91 mg/dL Normal 82-115 [facility] Comment on above: Performed By: #### L 200.3190, L200.3001 #### [facility] [address] [place] [address] 39766 Potassium [Moles/Vol] 3.9 mmol/L Normal 3.5-5.0 [facility] Comment on above: Performed By: #### L 200.3190, L200.3001 #### [facility] [address] [place] [address] 24196 Sodium [Moles/Vol] 137 mmol/L Normal 135-145 [facility] Comment on above: Performed By: #### L 200.3190, L200.3001 #### [facility] [address] [place] [address] 19349 Urea nitrogen [Mass/Vol] 14 mg/dL Normal 8-23 [facility] Comment on above: Performed By: #### L 200.3190, L200.3001 #### [facility] [address] [place] [address] 68246 Basic metabolic 2000 panelon 10-14-2022 Anion gap [Moles/Vol] 20.9 mmol/L 15 - 2 2 mmol/L [facility] Calcium [Mass/Vol] 9.8 mg/dL 8.8 - 10. 2 mg/dL [facility] Chloride [Moles/Vol] 100 mmol/L 98 - 10 7 mmol/L [facility] CO2 [Moles/Vol] 20 mmol/L Low 22 - 29 mmol/L [facility] Creatinine [Mass/Vol] 1.34 mg/dL High 0.50 - 0.90 mg/dL [facility] eGFR-All Other Races 39 [facility] GFR/1.73 sq M.predicted among blacks MDRD (S/P/Bld) [Vol rate/Area] 47 mL/min/{1.73_m2} [facility] Glucose [Mass/Vol] 91 mg/dL 82 - 115 mg/dL [facility] Potassium [Moles/Vol] 3.9 mmol/L 3.5 - 5.0 mmol/L [facility] Sodium [Moles/Vol] 137 mmol/L 135 - 145 mmol/L [facility] Urea nitrogen [Mass/Vol] 14 mg/dL 8 - 23 mg/dL [facility] CBCon 10-14-2022 BASO# 0.10 x10(3) Normal 0.00-0.10 [facility] Comment on above: Performed By: #### L 200.3190, L200.3001 #### [facility] - [facility] [address] [place] [address] 68619 Basophils/100 WBC (Bld) 0.7 % Normal 0.0-1.0 [facility] Comment on above: Performed By: #### L 200.3190, L200.3001 #### [facility] [address] [place] [address] 32036 EOS# 0.10 x10(3) Normal 0.00-0.54 [facility] Comment on above: Performed By: #### L 200.3190, L200.3001 #### [facility] [address] [place] [address] 06732 Eosinophils/100 WBC (Bld) 0.6 % Normal 0.5-4.9 [facility] Comment on above: Performed By: #### L 200.3190, L200.3001 #### - LABORATORY [address] [place] [address] 28913 Erythrocyte distribution width (RBC) [Ratio] 15.4 % Normal 12.5-15.7 [facility] Comment on above: Performed By: #### L 200.3190, L200.3001 #### [facility] - [facility] [address] [place] [address] 42098 Hematocrit (Bld) [Volume fraction] 35.6 % Low 36.0-48.0 [facility] Comment on above: Performed By: #### L 200.3190, L200.3001 #### [facility] [address] [place] [address] 47306 Hemoglobin (Bld) [Mass/Vol] 11.8 g/dL Low 12.0-16.0 [facility] Comment on above: Performed By: #### L 200.3190, L200.3001 #### [facility] [address] [place] [address] 28246 LYMPH# 3.50 x10(3) Normal 1.00-3.50 [facility] Comment on above: Performed By: #### L 200.3190, L200.3001 #### [facility] [address] [place] [address] 07069 Lymphocytes/100 WBC (Bld) 29.0 % Normal 16.0-48.0 [facility] Comment on above: Performed By: #### L 200.3190, L200.3001 #### [facility] [address] [place] [address] 28134 MCH (RBC) [Entitic mass] 29.4 pg Normal 28.5-32.9 [facility] Comment on above: Performed By: #### L 200.3190, L200.3001 #### [facility] [address] [place] [address] 94062 MCHC (RBC) [Mass/Vol] 33.2 g/dL Normal 33.0-36.0 [facility] Comment on above: Performed By: #### L 200.3190, L200.3001 #### [facility] - [facility] [address] [place] [address] 79256 MCV (RBC) [Entitic vol] 88.4 fL Normal 80.0-99.0 [facility] Comment on above: Performed By: #### L 200.3190, L200.3001 #### [facility] [address] [place] [address] 61088 MONO# 0.90 x10(3) High 0.30-0.80 [facility] Comment on above: Performed By: #### L 200.3190, L200.3001 #### [facility] [address] [place] [address] 54322 Monocytes/100 WBC (Bld) 7.3 % Normal 4.3-11.2 [facility] Comment on above: Performed By: #### L 200.3190, L200.3001 #### [facility] [address] [place] [address] 69028 NEUT# 7.50 x10(3) High 1.40-6.50 [facility] Comment on above: Performed By: #### L 200.3190, L200.3001 #### [facility] [address] [place] [address] 29781 Neutrophils/100 WBC (Bld) 62.4 % Normal 45.0-73.0 [facility] Comment on above: Performed By: #### L 200.3190, L200.3001 #### [facility] [address] [place] [address] 82475 Platelet mean volume (Bld) [Entitic vol] 8.0 fL Normal 7.5-9.5 [facility] Comment on above: Performed By: #### L 200.3190, L200.3001 #### [facility] [address] [place] [address] 92193 PLT 437 X10(3) Normal 150-450 [facility] Comment on above: Performed By: #### L 200.3190, L200.3001 #### [facility] [address] [place] [address] 43481 RBC 4.02 x10(6) Normal 3.30-5.00 [facility] Comment on above: Performed By: #### L 200.3190, L200.3001 #### ML - [facility] [address] [place] [address] WBC 12.0 x10(3) High 4.5-10.0 [facility] Comment on above: Performed By: #### L 200.3190, L200.3001 #### [facility] - [facility] [address] [place] [address] CBC W Auto Differential pane l (Bld)on 10-14-2022 BASO ABS 0.10 x10(3) 0.00 - 0.10 x10(3) [facility] Basophils/100 WBC (Bld) 0.7 % 0.0 - 1.0 % [facility] EOS ABS 0.10 x10(3) 0.00 - 0.54 x10(3) [facility] Eosinophils/100 WBC (Bld) 0.6 % 0.5 - 4.9 % [facility] Erythrocyte distribution width (RBC) [Ratio] 15.4 % 12.5 - 15.7 % [facility] Hematocrit (Bld) [Volume fraction] 35.6 % Low 36.0 - 48.0 % [facility] Hemoglobin (Bld) [Mass/Vol] 11.8 g/dL Low 12.0 - 16.0 g/dL [facility] LYMPH ABS 3.50 x10(3) 1.00 - 3.50 x10(3) [facility] Lymphocytes/100 WBC (Bld) 29.0 % 16.0 - 48.0 % [facility] MCH (RBC) [Entitic mass] 29.4 pg 28.5 - 32.9 pg [facility] MCHC (RBC) [Mass/Vol] 33.2 g/dL 33.0 - 36.0 g/dL [facility] MCV (RBC) [Entitic vol] 88.4 fL 80.0 - 99.0 fl [facility] MONO ABS 0.90 x10(3) High 0.30 - 0.80 x10(3) [facility] Monocytes/100 WBC (Bld) 7.3 % 4.3 - 11.2 % [facility] Neutrophil Ab 7.50 x10(3) High 1.40 - 6.50 x10(3) [facility] Neutrophils/100 WBC (Bld) 62.4 % 45.0 - 73.0 % [facility] Platelet Count 437 X10(3) 150 - 450 X10(3) [facility] Platelet mean volume (Bld) [Entitic vol] 8.0 fL 7.5 - 9.5 fl [facility] RBC 4.02 x10(6) 3.30 - 5.00 x10(6) [facility] WBC 12.0 x10(3) High 4.5 - 10.0 x10(3) [facility] CHEST-ONE VIEW ONLY - CXR1on 10-14-2022 CHEST-ONE VIEW ONLY - CXR1 [address] [address] Name: ADINA ESCOBRA I Phys: LEO EMERSON M.D. : [birth year] Age: 72 Sex: F Acct: [id number] Loc: ED Exam Date: 10/14/22 Status: REG ER Radiology No.: Unit Number: [id number] Exam # Type/Exam [id number] RAD / CHEST-ONE VIEW ONLY - CXR1 [...] 10/14/2022 9:07:47 PM EST Workstation ID : [id number] < > Reported By: ARMANI MARIA D.O. Signed In Fluency By: ARMANI MARIA D.O. << Signature on File>> Reported By: ARMANI MARIA D.O. Signed By: ARMANI MARIA D.O. Tests performed at: [address] [address] Normal [facility] CKon 10-14-2022 CK [Catalytic activity/Vol] 78 U/L Normal 26-192 [facility] Comment on above: Result Comment: Rela tive Index is not calculated as it is only applicable to CK values greater than or equal to 192 IU/L. NO RELATIVE INDEX PERFORMED Performed By: #### L 200.3190, L200.3001 #### [facility] - [facility] [address] [place] [address]756 CK CREATINE KINASEon 023 CK [Catalytic activity/Vol] 78 U/L 26 - 192 IU/L [facility] CK-MBon 10-14-2022 CK.MB [Mass/Vol] 1.6 ng/mL Normal 1.0-5.34 [facility] Comment on above: Performed By: #### L 301.0100, L301.0120, L301.0105 #### [facility] [address] [place] [address]683 CK-MB (ALBION)on 10-14-2022 CK.MB [Mass/Vol] 1.6 ng/mL 1.0 - 5.34 ng/mL [facility] EKGon 10-14-2022 Atrial Rate 73 BPM [facility] Calculated P [place] 59 degrees [facility] Calculated R [place] 38 degrees [facility] Calculated T [place] 51 degrees [facility] P-R Interval 138 ms [facility] QRS Duration 76 ms [facility] QT Interval 406 ms [facility] QTC Calculation ([place]) 447 ms [facility] Ventricular Rate 73 BPM [facility] ELECTROCARDIOGRAMon 10-14-19 23 Electrocardiogram [facility] [place] [address] HEALTH INFORMATION MANAGEMENT ELECTROCARDIOGRAM REPORT Patient: ADINA ESCOBAR I Ordering: LEO EMERSON M.D. [id number] [age] F Exam Date: 10/14/22 Report #: [id number] Status: REG ER ED Test Reason : [...] was found Confirmed by LEO EMERSON MD ([id number]) on 10/14/2022 8:04:16 PM Referred By: LEO EMERSON Confirmed By:LEO EMERSON MD Signed in MUSE 10/14/222005 LEO EMERSON M.D. cc: << Signature on File>> Reported By: LEO EMERSON M.D. Signed By: LEO EMERSON M.D. Tests performed at: [address] [address] Normal [facility] TROPONIN Ton 10-14-2022 TROPONIN T <0.010 Normal 0-0.010 [facility] Comment on above: Performed By: #### L 200.3190, L200.3001 #### [facility] [address] [place] [address] 32256 Troponin T <0.010 0 - 0.010 ng/mL [facility] XR CHEST 1V FRONTALon 2022 [facility] XR Abdomen Supine and Uprigh ton 07-24-2022 IMPRESSION: No evide nce of free air or obstruction. Migrant Leader[facility] Transcribe Date/Time: Jul 24 2022 2:23P Dictated by : DUC HUTCHINSON MD This examination was interpreted and the report reviewed and electronically signed by: DUC HUTCHINSON MD on Jul 24 2022 2:27PM [facility] DIVISION OF RADIOLOGY * * *Final [...] shows right-sided curvature. DIVISION OF RADIOLOGY Provider, Katherine Jessy [facility] - 07/24/2022 * * *Final Report* * [...] No evidence of free air or obstruction. Migrant [facility] Transcribe Date/Time: Jul 24 2022 2:23P Dictated by : DUC HUTCHINSON MD This examination was interpreted and the report reviewed and electronically signed by: DUC HUTCHINSON MD on Jul 24 2022 2:27PM EST [facility] XR Abdomen Supine and Uprigh tOrdered By: [facility] Provider on 07-24-2022 [facility] XR Abdomen Supine and Uprigh ton 07-21-2022 Radiology Study observation (narrative) [facility] ABDOMEN (KUB)1 VIEWon 2021 ABDOMEN (KUB)1 VIEW [place] [address] Name: ADINA ESCOBAR I Phys: KENTRELL PACHECO M.D. : [birth year] Age: 72 Sex: F Acct: [id number] Loc: 2SWEST Exam Date: 07/17/22 Status: ADM IN Radiology No.: Unit Number: [id number] Exam # Type/Exam [id number] RAD / ABDOMEN (KUB)1 VIEW EXAMINATION: ONE [...] 07/17/2022 5:03:57 AM EST Workstation ID : [id number] < > Reported By: DURGA HUANG M.D. Signed In Fluency By: DURAG HUANG M.D. << Signature on File>> Reported By: DURGA HUANG M.D. Signed By: DURGA HUANG M.D. Tests performed at: [address] [address] Normal [facility] CREATo 07-17-2022 Creatinine [Mass/Vol] 0.81 mg/dL Normal 0.50-0.90 [facility] Comment on above: Performed By: #### L 200.3190, L200.3001 #### [facility] - [facility] [address] [place] [address] 23163 eGFR if AFR ELOISA > 60 ml/min/1.73m2 [facility] Comment on above: Result Comment: eGFR >= [...] L 200.3190, L200.3001 #### [facility] - [facility] [address] [place] [address] 65124 eGFR nonAFR Eloisa > 60 ml/Min/1.73m2 [facility] Comment on above: Performed By: #### L 200.3190, L200.3001 #### [facility] - [facility] [address] [place] [address] CREATININE BLDon 07-17-2022 Creatinine [Mass/Vol] 0.81 mg/dL 0.50 - 0.90 mg/dL [facility] eGFR-All Other Races > 60 ml/Min/1.73m2 [facility] GFR/1.73 sq M.predicted among blacks MDRD (S/P/Bld) [Vol rate/Area] mL/min/{1.73_m2} [facility] PROGRESS NOTEon 07-17-2022 PROGRESS NOTE [facility] [place] [address] HEALTH INFORMATION MANAGEMENT PROGRESS NOTE Patient: ADINA ESCOBAR I TARAKENTRELL M.D. 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 She understands that, seems to be doing better, understands this will be a lifelong issue that may flare up at times, and she is in agreement. If it would get bad enough, she would have to have surgery [place], but she seems to be improving. We will do regular diet. Report#: Dict ID [id number] / Int ID [id number] KENTRELL PACHECO M.D. cc: KENTRELL PACHECO M.D. << Signature on File>> Reported By: KENTRELL PACHECO M.D. Signed By: KENTRELL PACHECO M.D. Tests performed at: [place] [address] [facility] PROGRESS NOTE [place] [address] HEALTH INFORMATION MANAGEMENT PROGRESS NOTE Patient: ADINA ESCOBAR I KENTRELL PACHECO M.D. [id number] [age] F Status: ADM IN [facility] 2922-A DATE OF PROGRESS NOTE: 07/16/2022 LOCATION: [facility]. SUBJECTIVE: 72-year-old white female, less discomfort, nausea, [...] on her again tomorrow. Report#: Dict ID [id number] / Int ID [id number] KENTRELL PACHECO M.D. cc: KENTRELL PACHECO M.D. << Signature on File>> Reported By: KENTRELL PACHECO M.D. Signed By: KENTRELL PACHECO M.D. Tests performed at: [place] [address] [facility] XR ABDOMEN 1V SPECIFYon 10-3 [facility] BMPon 07-16-2022 Anion gap [Moles/Vol] 14.5 mmol/L Low 15- [facility] Comment on above: Performed By: #### L 200.3190, L200.3001 #### [facility] [address] [place] [address] 0[address]74 Calcium [Mass/Vol] 8.4 mg/dL Low 8.8-10.2 [facility] Comment on above: Performed By: #### L 200.3190, L200.3001 #### [facility] [address] [place] [address] 92805 Chloride [Moles/Vol] 111 mmol/L High 98-107 [facility] Comment on above: Performed By: #### L 200.3190, L200.3001 #### [facility] [address] [place] [address] 19002 CO2 [Moles/Vol] 20 mmol/L Low 22-29 [facility] Comment on above: Performed By: #### L 200.3190, L200.3001 #### [facility] [address] [place] [address] 6[address]08 Creatinine [Mass/Vol] 0.78 mg/dL Normal 0.50-0.90 [facility] Comment on above: Performed By: #### L 200.3190, L200.3001 #### [facility] [address] [place] [address] 47375 eGFR if AFR ELOISA > 60 ml/min/1.73m2 Normal [facility] Comment on above: Result Comment: eGFR >= [...] 200.3190, L200.3001 #### [facility] [address] [place] [address] eGFR nonAFR Eloisa > 60 ml/Min/1.73m2 [facility] Comment on above: Performed By: #### L 200.3190, L200.3001 #### [facility] [address] [place] [address] Glucose [Mass/Vol] 105 mg/dL Normal 82-115 [facility] Comment on above: Performed By: #### L 200.3190, L200.3001 #### [facility] [address] [place] [address] Potassium [Moles/Vol] 3.5 mmol/L Normal 3.5-5.0 [facility] Comment on above: Performed By: #### L 200.3190, L200.3001 #### [facility] - LABORATORY [address] [place] [address] 77536 Sodium [Moles/Vol] 142 mmol/L Normal 135-145 [facility] Comment on above: Performed By: #### L 200.3190, L200.3001 #### [facility] [address] [place] [address] Urea nitrogen [Mass/Vol] 2 mg/dL Low 8-23 [facility] Comment on above: Performed By: #### L 200.3190, L200.3001 #### [facility] - [facility] [address] [place] [address] 19577 Basic metabolic 2000 panelon 07-16-2022 Anion gap [Moles/Vol] 14.5 mmol/L Low 15 - 2 2 mmol/L [facility] Calcium [Mass/Vol] 8.4 mg/dL Low 8.8 - 10. 2 mg/dL [facility] Chloride [Moles/Vol] 111 mmol/L High 98 - 10 7 mmol/L [facility] CO2 [Moles/Vol] 20 mmol/L Low 22 - 29 mmol/L [facility] Creatinine [Mass/Vol] 0.78 mg/dL 0.50 - 0.90 mg/dL [facility] eGFR-All Other Races > 60 ml/Min/1.73m2 [facility] GFR/1.73 sq M.predicted among blacks MDRD (S/P/Bld) [Vol rate/Area] mL/min/{1.73_m2} [facility] Glucose [Mass/Vol] 105 mg/dL 82 - 115 mg/dL [facility] Potassium [Moles/Vol] 3.5 mmol/L 3.5 - 5.0 mmol/L [facility] Sodium [Moles/Vol] 142 mmol/L 135 - 145 mmol/L [facility] Urea nitrogen [Mass/Vol] 2 mg/dL Low 8 - 23 mg/dL [facility] CBCon 07-16-2022 BASO# 0.10 x10(3) Normal 0.00-0.10 [facility] Comment on above: Performed By: #### L 200.0010 #### ML [facility] [address] [place] [address] 90127 Basophils/100 WBC (Bld) 1.0 % Normal 0.0-1.0 [facility] Comment on above: Performed By: #### L 200.0010 #### ML [facility] [address] [place] [address] 57103 EOS# 0.30 x10(3) Normal 0.00-0.54 [facility] Comment on above: Performed By: #### L 200.0010 #### ML [facility] [address] [place] [address] 20202 Eosinophils/100 WBC (Bld) 5.3 % High 0.5-4.9 [facility] Comment on above: Performed By: #### L 200.0010 #### ML [facility] [address] [place] [address] 02043 Erythrocyte distribution width (RBC) [Ratio] 16.2 % High 12.5-15.7 [facility] Comment on above: Performed By: #### L 200.0010 #### ML [facility] [address] [place] [address] 71112 Hematocrit (Bld) [Volume fraction] 28.3 % Low 36.0-48.0 [facility] Comment on above: Performed By: #### L 200.0010 #### ML [facility] [address] [place] [address] 11307 Hemoglobin (Bld) [Mass/Vol] 9.3 g/dL Low 12.0-16.0 [facility] Comment on above: Performed By: #### L 200.0010 #### [facility] [address] [place] [address] 53246 LYMPH# 2.50 x10(3) Normal 1.00-3.50 [facility] Comment on above: Performed By: #### L 200.0010 #### ML [facility] [address] [place] [address] 67915 Lymphocytes/100 WBC (Bld) 39.6 % Normal 16.0-48.0 [facility] Comment on above: Performed By: #### L 200.0010 #### [facility] [address] [place] [address] 96528 MCH (RBC) [Entitic mass] 28.4 pg Low 28.5-32.9 [facility] Comment on above: Performed By: #### L 200.0010 #### ML [facility] [address] [place] [address] 87195 MCHC (RBC) [Mass/Vol] 33.0 g/dL Normal 33.0-36.0 [facility] Comment on above: Performed By: #### L 200.0010 #### ML [facility] [address] [place] [address] 39636 MCV (RBC) [Entitic vol] 86.1 fL Normal 80.0-99.0 [facility] Comment on above: Performed By: #### L 200.0010 #### [facility] [address] [place] [address] 00930 MONO# 0.60 x10(3) Normal 0.30-0.80 [facility] Comment on above: Performed By: #### L 200.0010 #### [facility] [address] [place] [address] 69545 Monocytes/100 WBC (Bld) 9.0 % Normal 4.3-11.2 [facility] Comment on above: Performed By: #### L 200.0010 #### ML [facility] [address] [place] [address] 81498 NEUT# 2.90 x10(3) Normal 1.40-6.50 [facility] Comment on above: Performed By: #### L 200.0010 #### ML [facility] [address] [place] [address] 95956 Neutrophils/100 WBC (Bld) 45.1 % Normal 45.0-73.0 [facility] Comment on above: Performed By: #### L 200.0010 #### ML - [facility]AT[facility] [address] [place] [address] 60221 Platelet mean volume (Bld) [Entitic vol] 8.2 fL Normal 7.5-9.5 [facility] Comment on above: Performed By: #### L 200.0010 #### ML [facility] [address] [place] [address] 69321 PLT 251 X10(3) Normal 150-450 [facility] Comment on above: Performed By: #### L 200.0010 #### ML [facility] [address] [place] [address] 50902 RBC 3.28 x10(6) Low 3.30-5.00 [facility] Comment on above: Performed By: #### L 200.0010 #### ML [facility] [address] [place] [address] 65971 WBC 6.4 x10(3) Normal 4.5-10.0 [facility] Comment on above: Performed By: #### L 200.0010 #### ML [facility] [address] [place] [address] 66564 CBC W Auto Differential pane l (Bld)on 07-16-2022 BASO ABS 0.10 x10(3) 0.00 - 0.10 x10(3) [facility] Basophils/100 WBC (Bld) 1.0 % 0.0 - 1.0 % [facility] EOS ABS 0.30 x10(3) 0.00 - 0.54 x10(3) [facility] Eosinophils/100 WBC (Bld) 5.3 % High 0.5 - 4.9 % [facility] Erythrocyte distribution width (RBC) [Ratio] 16.2 % High 12.5 - 15.7 % [facility] Hematocrit (Bld) [Volume fraction] 28.3 % Low 36.0 - 48.0 % [facility] Hemoglobin (Bld) [Mass/Vol] 9.3 g/dL Low 12.0 - 16.0 g/dL [facility] LYMPH ABS 2.50 x10(3) 1.00 - 3.50 x10(3) [facility] Lymphocytes/100 WBC (Bld) 39.6 % 16.0 - 48.0 % [facility] MCH (RBC) [Entitic mass] 28.4 pg Low 28.5 - 32.9 pg [facility] MCHC (RBC) [Mass/Vol] 33.0 g/dL 33.0 - 36.0 g/dL [facility] MCV (RBC) [Entitic vol] 86.1 fL 80.0 - 99.0 fl [facility] MONO ABS 0.60 x10(3) 0.30 - 0.80 x10(3) [facility] Monocytes/100 WBC (Bld) 9.0 % 4.3 - 11.2 % [facility] Neutrophil Ab 2.90 x10(3) 1.40 - 6.50 x10(3) [facility] Neutrophils/100 WBC (Bld) 45.1 % 45.0 - 73.0 % [facility] Platelet Count 251 X10(3) 150 - 450 X10(3) [facility] Platelet mean volume (Bld) [Entitic vol] 8.2 fL 7.5 - 9.5 fl [facility] RBC 3.28 x10(6) Low 3.30 - 5.00 x10(6) [facility] WBC 6.4 x10(3) 4.5 - 10.0 x10(3) [facility] ABDOMEN (KUB)1 VIEWon 2021 ABDOMEN (KUB)1 VIEW [place] [address] Name: ADINA ESCOBAR I Phys: KENTRELL PACHECO M.D. : [birth year] Age: 72 Sex: F Acct: [id number] Loc: 2SWEST Exam Date: 07/15/22 Status: ADM IN Radiology No.: Unit Number: [id number] Exam # Type/Exam [id number] RAD / ABDOMEN (KUB)1 VIEW EXAMINATION: ONE [...] 07/15/2022 7:31:23 AM EST Workstation ID : [id number] < > Reported By: DURGA HUANG M.D. Signed In Fluency By: DURGA HUANG M.D. << Signature on File>> Reported By: DURGA HUANG M.D. Signed By: DURGA HUANG M.D. Tests performed at: [address] [address] Normal [facility] CREATon 07-15-2022 Creatinine [Mass/Vol] 0.98 mg/dL High 0.50-0.90 [facility] Comment on above: Performed By: #### L 200.3190, L200.3001 #### [facility] - LABORATORY [address] [place] [address] 41860 eGFR if AFR ELOISA > 60 ml/min/1.73m2 [facility] Comment on above: Result Comment: eGFR >= [...] L200.3001 #### [facility] [address] [place] [address] eGFR nonAFR Eloisa 56 Normal [facility] Comment on above: Performed By: #### L 200.3190, L200.3001 #### ML - LABORATORY [address] [place] [address] CREATININE BLDon 07-15-2022 Creatinine [Mass/Vol] 0.98 mg/dL High 0.50 - 0.90 mg/dL [facility] eGFR-All Other Races 56 [facility] GFR/1.73 sq M.predicted among blacks MDRD (S/P/Bld) [Vol rate/Area] mL/min/{1.73_m2} [facility] PROGRESS NOTEon 07-15-2022 PROGRESS [place] [address] HEALTH INFORMATION MANAGEMENT PROGRESS NOTE Patient: ADINA ESCOBAR CHELLE AMAYA M.D. [id number] [age] F Status: ADM IN [address] [place], [place] [address]-A DATE OF PROGRESS NOTE: 07/15/2022 I am [...] Surgery on this admission. Report#: Dict ID [id number] / Int ID [id number] CHELLE ANTON M.D. cc: CHELLE ANTON M.D. << Signature on File>> Reported By: CHELLE ANTON M.D. Signed By: CHELLE ANTON M.D. Tests performed at: [place] [address] Normal [facility] PROGRESS NOTE [place] [address] HEALTH INFORMATION MANAGEMENT PROGRESS NOTE Patient: ADINA ESCOBAR I KENTRELL PACHECO M.D. [id number] [age] F Status: ADM IN [facility] 2922-A DATE OF PROGRESS NOTE: 07/15/2022 Tara doing the note. SUBJECTIVE: 72-year-old white female, did have a bowel movement yesterday, feeling a little better today. OBJECTIVE: VITAL SIGNS: Stable, afebrile. ABDOMEN: No acute peritoneal signs. KUB pending today. ASSESSMENT: 72-year-old white female, partial small bowel obstruction, maybe improving. PLAN: To slowly advance diet as tolerated. Report#: Dict ID [id number] / Int ID [id number] KENTRELL PACHECO M.D. cc: KENTRELL PACHECO M.D. << Signature on File>> Reported By: KENTRELL PACHECO M.D. Signed By: KENTRELL PACHECO M.D. Tests performed at: [place] [address] Normal [facility] URINE CULTUREon 07-15-2022 Bacteria identified Cx Nom (U) XXX [facility] XR ABDOMEN 1V SPECIFYon 06-18 [facility] BLOOD CULTUREon 07-14-2022 Bacteria identified Cx Nom (Bld) CULTURE, BLOOD No growth 5 days SOURCE: BLOOD Test Performed By: [facility] [address] [place] [address] Signals Intelligence Analyst: Sven Wasserman III, M.D. See Below Normal [facility] BMPon 07-14-2022 Anion gap [Moles/Vol] 16.3 mmol/L Normal - [facility] Comment on above: Performed By: #### L 200.3190, L200.3001 #### [facility] - [facility] [address] [place] [address] 98517 Calcium [Mass/Vol] 9.4 mg/dL Normal 8.8-10.2 [facility] Comment on above: Performed By: #### L 200.3190, L200.3001 #### [facility] - [facility] [address] [place] [address] 96445 Chloride [Moles/Vol] 100 mmol/L Normal 98-107 [facility] Comment on above: Performed By: #### L 200.3190, L200.3001 #### [facility] - [facility] [address] [place] [address] 69384 CO2 [Moles/Vol] 22 mmol/L Normal - [facility] Comment on above: Performed By: #### L 200.3190, L200.3001 #### [facility] - [facility]OR[facility] [address] [place] [address] Creatinine [Mass/Vol] 0.99 mg/dL High 0.50-0.90 [facility] Comment on above: Performed By: #### L 200.3190, L200.3001 #### [facility] [address] [place] [address] 03761 eGFR if AFR ELOISA > 60 ml/min/1.73m2 Normal [facility] Comment on above: Result Comment: eGFR >= [...] L 200.3190, L200.3001 #### [facility] - [facility] [address] [place] [address] 97399 eGFR nonAFR Eloisa 55 Normal [facility] Comment on above: Performed By: #### L 200.3190, L200.3001 #### [facility] - [facility] [address] [place] [address] 58982 Glucose [Mass/Vol] 111 mg/dL Normal 82-115 [facility] Comment on above: Performed By: #### L 200.3190, L200.3001 #### [facility] - [facility] [address] [place] [address] 87218 Potassium [Moles/Vol] 4.3 mmol/L Normal 3.5-5.0 [facility] Comment on above: Performed By: #### L 200.3190, L200.3001 #### [facility] - [facility] [address] [place] [address] 46569 Sodium [Moles/Vol] 134 mmol/L Low 135-145 [facility] Comment on above: Performed By: #### L 200.3190, L200.3001 #### [facility] - [facility] [address] [place] [address] 22372 Urea nitrogen [Mass/Vol] 8 mg/dL Normal 8-23 [facility] Comment on above: Performed By: #### L 200.3190, L200.3001 #### [facility] - [facility] [address] [place] [address] 33940 CBCon 07-14-2022 BASO# 0.10 x10(3) Normal 0.00-0.10 [facility] Comment on above: Performed By: #### L 200.3190, L200.3001 #### - LABORATORY [address] [place] [address] 33011 Basophils/100 WBC (Bld) 0.9 % Normal 0.0-1.0 [facility] Comment on above: Performed By: #### L 200.3190, L200.3001 #### [facility] - [facility] [address] [place] [address] 96502 EOS# 0.10 x10(3) Normal 0.00-0.54 [facility] Comment on above: Performed By: #### L 200.3190, L200.3001 #### [facility] - [facility] [address] [place] [address] 66334 Eosinophils/100 WBC (Bld) 0.8 % Normal 0.5-4.9 [facility] Comment on above: Performed By: #### L 200.3190, L200.3001 #### [facility] [address] [place] [address] 41624 Erythrocyte distribution width (RBC) [Ratio] 16.0 % High 12.5-15.7 [facility] Comment on above: Performed By: #### L 200.3190, L200.3001 #### - LABORATORY [address] [place] [address] 01032 Hematocrit (Bld) [Volume fraction] 36.9 % Normal 36.0-48.0 [facility] Comment on above: Performed By: #### L 200.3190, L200.3001 #### [facility] [address] [place] [address] 00837 Hemoglobin (Bld) [Mass/Vol] 12.1 g/dL Normal 12.0-16.0 [facility] Comment on above: Performed By: #### L 200.3190, L200.3001 #### - LABORATORY [address] [place] [address] 00654 LYMPH# 3.90 x10(3) High 1.00-3.50 [facility] Comment on above: Performed By: #### L 200.3190, L200.3001 #### [facility] [address] [place] [address] 58360 Lymphocytes/100 WBC (Bld) 36.4 % Normal 16.0-48.0 [facility] Comment on above: Performed By: #### L 200.3190, L200.3001 #### [facility] - [facility] [address] [place] [address] 10786 MCH (RBC) [Entitic mass] 28.5 pg Normal 28.5-32.9 [facility] Comment on above: Performed By: #### L 200.3190, L200.3001 #### [facility] - [facility] [address] [place] [address] 51699 MCHC (RBC) [Mass/Vol] 32.7 g/dL Low 33.0-36.0 [facility] Comment on above: Performed By: #### L 200.3190, L200.3001 #### [facility] - [facility] [address] [place] [address] 71327 MCV (RBC) [Entitic vol] 87.1 fL Normal 80.0-99.0 [facility] Comment on above: Performed By: #### L 200.3190, L200.3001 #### [facility] [address] [place] [address] 38742 MONO# 0.80 x10(3) Normal 0.30-0.80 [facility] Comment on above: Performed By: #### L 200.3190, L200.3001 #### [facility] [address] [place] [address] 05790 Monocytes/100 WBC (Bld) 7.4 % Normal 4.3-11.2 [facility] Comment on above: Performed By: #### L 200.3190, L200.3001 #### [facility] [address] [place] [address] 77937 NEUT# 5.80 x10(3) Normal 1.40-6.50 [facility] Comment on above: Performed By: #### L 200.3190, L200.3001 #### [facility] [address] [place] [address] 41319 Neutrophils/100 WBC (Bld) 54.5 % Normal 45.0-73.0 [facility] Comment on above: Performed By: #### L 200.3190, L200.3001 #### [facility] - [facility] [address] [place] [address] 13170 Platelet mean volume (Bld) [Entitic vol] 8.4 fL Normal 7.5-9.5 [facility] Comment on above: Performed By: #### L 200.3190, L200.3001 #### [facility] [address] [place] [address] 40446 PLT 371 X10(3) Normal 150-450 [facility] Comment on above: Performed By: #### L 200.3190, L200.3001 #### [facility] [address] [place] [address] 74257 RBC 4.23 x10(6) Normal 3.30-5.00 [facility] Comment on above: Performed By: #### L 200.3190, L200.3001 #### [facility] [address] [place] [address] 56524 WBC 10.6 x10(3) High 4.5-10.0 [facility] Comment on above: Performed By: #### L 200.3190, L200.3001 #### ML - LAB[facility]ATORY [address] [place] [address] ABD/PEL W CONTRASTon 10-2 CT ABD/PEL W CONTRAST [address] [address] Name: ADINA ESCOBAR I Phys: KAILA FUNEZ D.O. : [birth year] Age: 72 Sex: F Acct: [id number] Loc: ED Exam Date: 07/13/22 Status: [facility] Radiology No.: Unit Number: [id number] Exam # Type/Exam [id number] CT / CT ABD/PEL W CONTRAST EXAMINATION: [...] 07/14/2022 1:24:12 AM EST Workstation ID : [id number] < > Reported By: DURGA HUANG M.D. Signed In Fluency By: DURGA HUANG M.D. << Signature on File>> Reported By: DURGA HUANG M.D. Signed By: DURGA HUANG M.D. Tests performed at: [address] [address] Normal [facility] EMERGENCY DEPARTMENT REPORTo n 07-14-2022 EMERGENCY [place] [address] HEALTH INFORMATION MANAGEMENT EMERGENCY DEPARTMENT REPORT Patient: ADINA ESCOBARKAILA D.O. [id number] [age] F Status: DIS IN 2SWEST [...] dictation by Marilee for Report#: Dict ID [id number] / Int ID [id number] 07/23/22 2249 KAILA FUNEZ D.O. cc: KENTRELL DHALIWAL II, M.D.; KAILA FUNEZ D.O. << Signature on File>> Reported By: KAILA FUNEZ D.O. Signed By: KAILA FUNEZ D.O. Tests performed at: [place] [address] [facility] EMERGENCY [place] [address] HEALTH INFORMATION MANAGEMENT EMERGENCY DEPARTMENT REPORT Patient: ADINA ESCOBAR I KAILA FUNEZ D.O. [id number] [age] F Status: DIS IN 2SWEST [...] developed DICTATION ENDS HERE. Report#: Dict ID [id number] / Int ID [id number] 07/23/22 2249 KAILA FUNEZ D.O. cc: SERGIO GOLDMAN,KENTRELL Vyas M.D.; KAILA FUNEZ D.O. << Signature on File>> Reported By: KAILA FUNEZ D.O. Signed By: KAILA FUNEZ D.O. Tests performed at: [address] [address] Normal [facility] RAPID COVIDon 07-14-2022 SARS-CoV-2 (COVID-19) RNA RENATA+probe Ql (Unsp spec) Negative Normal NEGATIVE [facility] Comment on above: Result Comment: [...] L 200.3190, L200.3001 #### ML - LABORATORY [address] [place] [address] 20787 SARS-CoV-2 (COVID-19) RNA NA A+probe Ql (Resp)on 07-14-2022 SARS-CoV-2 (COVID-19) RNA RENATA+probe Ql (Unsp spec) Negative NEGATIVE [facility] UA W/C&Son 07-14-2022 Bilirubin Ql (U) Negative Normal NEGATIVE [facility] Comment on above: Order Comment: Urine Specimen Source+ CLEAN CATCH Performed By: #### L 200.3190, L200.3001 #### ML - LABORATORY [address] [place] [address] 24482 Color (U) YELLOW Normal YELLOW [facility] Comment on above: Order Comment: Urine Specimen Source+ CLEAN CATCH Performed By: #### L 200.3190, L200.3001 #### [facility] - [facility] [address] [place] [address] 43062 Glucose Ql (U) Negative Normal NEGATIVE [facility] Comment on above: Order Comment: Urine Specimen Source+ CLEAN CATCH Performed By: #### L 200.3190, L200.3001 #### [facility] - LABORATORY [address] [place] [address] Hemoglobin Ql (U) Negative Normal NEGATIVE [facility] Comment on above: Order Comment: Urine Specimen Source+ CLEAN CATCH Performed By: #### L 200.3190, L200.3001 #### [facility] - [facility] [address] [place] [address] 84243 Leukocyte esterase Test strip Ql (U) LARGE Normal NEGATIVE [facility] Comment on above: Order Comment: Urine Specimen Source+ CLEAN CATCH Performed By: #### L 200.3190, L200.3001 #### [facility] - [facility] [address] [place] [address] 76517 Nitrite Ql (U) Negative Normal NEGATIVE [facility] Comment on above: Order Comment: Urine Specimen Source+ CLEAN CATCH Performed By: #### L 200.3190, L200.3001 #### [facility] - [facility] [address] [place] [address] 06925 pH (U) 6.0 [pH] Normal 5.0-8.0 [facility] Comment on above: Order Comment: Urine Specimen Source+ CLEAN CATCH Performed By: #### L 200.3190, L200.3001 #### [facility] [address] [place] [address] 66656 Protein Ql (U) Negative Normal NEGATIVE [facility] Comment on above: Order Comment: Urine Specimen Source+ CLEAN CATCH Performed By: #### L 200.3190, L200.3001 #### [facility] [address] [place] [address] 35269 URINE APPEARANC CLEAR Normal CLEAR [facility] Comment on above: Order Comment: Urine Specimen Source+ CLEAN CATCH Performed By: #### L 200.3190, L200.3001 #### [facility] [address] [place] [address] 18075 URINE KETONE Negative Normal NEGATIVE [facility] Comment on above: Order Comment: Urine Specimen Source+ CLEAN CATCH Performed By: #### L 200.3190, L200.3001 #### [facility] - [facility] [address] [place] [address] 23715 URINE SPECIFIC 1.010 Normal 1.001-1.035 [facility] Comment on above: Order Comment: Urine Specimen Source+ CLEAN CATCH Performed By: #### L 200.3190, L200.3001 #### [facility] - [facility] [address] [place] [address] 75809 URINE UROBILINO 0.2 EU/DL Normal 0.2-1.0 [facility] Comment on above: Order Comment: Urine Specimen Source+ CLEAN CATCH Performed By: #### L 200.3190, L200.3001 #### [facility] [address] [place] [address] 50281 URINE MICROSCOPon 07-14-2022 RENAL EPI FEW Normal NEGATIVE [facility] Comment on above: Order Comment: Urine Specimen Source+ CLEAN CATCH Performed By: #### L 200.3190, L200.3001 #### [facility] [address] [place] [address] 09918 SQUAMOUS MANY Normal NEGATIVE [facility] Comment on above: Order Comment: Urine Specimen Source+ CLEAN CATCH Performed By: #### L 200.3190, L200.3001 #### [facility] - [facility] [address] [place] [address] 49036 URINE BACTERIA 2+ Normal NEGATIVE [facility] Comment on above: Order Comment: Urine Specimen Source+ CLEAN CATCH Performed By: #### L 200.3190, L200.3001 #### [facility] - [facility] [address] [place] [address] 12063 URINE RBC 1-3 Normal 0-2 [facility] Comment on above: Order Comment: Urine Specimen Source+ CLEAN CATCH Performed By: #### L 200.3190, L200.3001 #### [facility] [address] [place] [address] 27207 URINE WBC 40-50 Normal 0-5 [facility] Comment on above: Order Comment: Urine Specimen Source+ CLEAN CATCH Performed By: #### L 200.3190, L200.3001 #### [facility] - [facility] [address] [place] [address] 96055 Urine Cultureon 07-14-2022 Bacteria identified Cx Nom [...] catheterization for???urine???collection. SOURCE: URINE Test Performed By: [facility] [address] [place] [address] Signals Intelligence Analyst: Sven Wasserman III, M.D. See Below Normal [facility] Basic metabolic 2000 panelon 07-13-2022 Anion gap [Moles/Vol] 16.3 mmol/L 15 - 2 2 mmol/L [facility] Calcium [Mass/Vol] 9.4 mg/dL 8.8 - 10. 2 mg/dL [facility] Chloride [Moles/Vol] 100 mmol/L 98 - 10 7 mmol/L [facility] CO2 [Moles/Vol] 22 mmol/L 22 - 29 mmol/L [facility] Creatinine [Mass/Vol] 0.99 mg/dL High 0.50 - 0.90 mg/dL [facility] eGFR-All Other Races 55 [facility] GFR/1.73 sq M.predicted among blacks MDRD (S/P/Bld) [Vol rate/Area] mL/min/{1.73_m2} [facility] Glucose [Mass/Vol] 111 mg/dL 82 - 115 mg/dL [facility] Potassium [Moles/Vol] 4.3 mmol/L 3.5 - 5.0 mmol/L [facility] Sodium [Moles/Vol] 134 mmol/L Low 135 - 145 mmol/L [facility] Urea nitrogen [Mass/Vol] 8 mg/dL 8 - 23 mg/dL [facility] CBC W Auto Differential pane l (Bld)on 07-13-2022 BASO ABS 0.10 x10(3) 0.00 - 0.10 x10(3) [facility] Basophils/100 WBC (Bld) 0.9 % 0.0 - 1.0 % [facility] EOS ABS 0.10 x10(3) 0.00 - 0.54 x10(3) [facility] Eosinophils/100 WBC (Bld) 0.8 % 0.5 - 4.9 % [facility] Erythrocyte distribution width (RBC) [Ratio] 16.0 % High 12.5 - 15.7 % [facility] Hematocrit (Bld) [Volume fraction] 36.9 % 36.0 - 48.0 % [facility] Hemoglobin (Bld) [Mass/Vol] 12.1 g/dL 12.0 - 16.0 g/dL [facility] LYMPH ABS 3.90 x10(3) High 1.00 - 3.50 x10(3) [facility] Lymphocytes/100 WBC (Bld) 36.4 % 16.0 - 48.0 % [facility] MCH (RBC) [Entitic mass] 28.5 pg 28.5 - 32.9 pg [facility] MCHC (RBC) [Mass/Vol] 32.7 g/dL Low 33.0 - 36.0 g/dL [facility] MCV (RBC) [Entitic vol] 87.1 fL 80.0 - 99.0 fl [facility] MONO ABS 0.80 x10(3) 0.30 - 0.80 x10(3) [facility] Monocytes/100 WBC (Bld) 7.4 % 4.3 - 11.2 % [facility] Neutrophil Ab 5.80 x10(3) 1.40 - 6.50 x10(3) [facility] Neutrophils/100 WBC (Bld) 54.5 % 45.0 - 73.0 % [facility] Platelet Count 371 X10(3) 150 - 450 X10(3) [facility] Platelet mean volume (Bld) [Entitic vol] 8.4 fL 7.5 - 9.5 fl [facility] RBC 4.23 x10(6) 3.30 - 5.00 x10(6) [facility] WBC 10.6 x10(3) High 4.5 - 10.0 x10(3) [facility] CT ABD/PEL W IVCONon 022 [facility] Urinalysis complete panel (U )on 07-13-2022 Appearance (U) CLEAR CLEAR [facility] Bacteria, Urine 2+ NEGATIVE [facility] Bilirubin, Urine Negative NEGATIVE [facility] Blood, Urine Negative NEGATIVE [facility] Color (U) YELLOW YELLOW [facility] Glucose Ql (U) Negative NEGATIVE MG/[facility] Ketones Ql (U) Negative NEGATIVE MG/DL [facility] Leukocytes LARGE NEGATIVE [facility] Nitrites Urine Negative NEGATIVE [facility] pH (U) 6.0 [pH] 5.0 - 8.0 [facility] Protein.monoclonal (U) [Mass/Vol] Negative NEGATIVE MG/DL [facility] RBC, Urine 1-3 0 - 2 [facility] Renal Epithelial FEW NEGATIVE [facility] Specific [place], Ur 1.010 1.001 - 1.035 [facility] Squamous Epithelial Cells MANY NEGATIVE [facility] Urobilinogen, Urine 0.2 EU/DL 0.2 - 1. 0 EU/DL [facility] WBC, Urine 40-50 0 - 5 [facility] BMPon 07-07-2022 Anion gap [Moles/Vol] 18.7 mmol/L Normal 15-22 [facility] Comment on above: Performed By: #### L 100.0030, L100.0010, L100.0350 ####ML - [id number] [place] [address] Calcium [Mass/Vol] 9.5 mg/dL Normal 8.8-10.2 [facility] Comment on above: Performed By: #### L 100.0030, L100.0010, L100.0350 ####ML - [id number] [place] [address] Chloride [Moles/Vol] 105 mmol/L Normal 98-107 [facility] Comment on above: Performed By: #### L 100.0030, L100.0010, L100.0350 ####ML - [id number] [place] [address] CO2 [Moles/Vol] 20 mmol/L Low 22-29 [facility] Comment on above: Performed By: #### L 100.0030, L100.0010, L100.0350 ####ML - [id number] [place] [address] Creatinine [Mass/Vol] 1.33 mg/dL High 0.50-0.90 [facility] Comment on above: Performed By: #### L 100.0030, L100.0010, L100.0350 ####ML - [id number] [place] [address] eGFR if AFR ELOISA 48 Normal [facility] Comment on above: Result Comment: eGFR [...] #### L 100.0030, L100.0010, L100.0350 #### - [facility] [place] [address] eGFR nonAFR Eloisa 39 [facility] Comment on above: Performed By: #### L 100.0030, L100.0010, L100.0350 ####[facility] [id number] [place] [address] Glucose [Mass/Vol] 99 mg/dL Normal 82-115 [facility] Comment on above: Performed By: #### L 100.0030, L100.0010, L100.0350 ####[facility] [id number] [place] [address] Potassium [Moles/Vol] 4.7 mmol/L Normal 3.5-5.0 [facility] Comment on above: Performed By: #### L 100.0030, L100.0010, L100.0350 ####[facility] [id number] [place] [address] Sodium [Moles/Vol] 139 mmol/L Normal 135-145 [facility] Comment on above: Performed By: #### L 100.0030, L100.0010, L100.0350 ####[facility] [id number] [place] [address] Urea nitrogen [Mass/Vol] 14 mg/dL Normal 8-23 [facility] Comment on above: Performed By: #### L 100.0030, L100.0010, L100.0350 #### - [id number] [place] [address] Basic metabolic 2000 panelon 07-07-2022 Anion gap [Moles/Vol] 18.7 mmol/L 15 - 2 2 mmol/L [facility] Calcium [Mass/Vol] 9.5 mg/dL 8.8 - 10. 2 mg/dL [facility] Chloride [Moles/Vol] 105 mmol/L 98 - 10 7 mmol/L [facility] CO2 [Moles/Vol] 20 mmol/L Low 22 - 29 mmol/L [facility] Creatinine [Mass/Vol] 1.33 mg/dL High 0.50 - 0.90 mg/dL [facility] eGFR-All Other Races 39 [facility] GFR/1.73 sq M.predicted among blacks MDRD (S/P/Bld) [Vol rate/Area] 48 mL/min/{1.73_m2} [facility] Glucose [Mass/Vol] 99 mg/dL 82 - 115 mg/dL [facility] Potassium [Moles/Vol] 4.7 mmol/L 3.5 - 5.0 mmol/L [facility] Sodium [Moles/Vol] 139 mmol/L 135 - 145 mmol/L [facility] Urea nitrogen [Mass/Vol] 14 mg/dL 8 - 23 mg/dL [facility] CBCon 07-07-2022 BASO# 0.00 x10(3) Normal 0.00-0.10 [facility] Comment on above: Performed By: #### L 301.0100, L301.0120, L301.0105 #### ML - LABORATORY [address] [place] [address] Basophils/100 WBC (Bld) 0.4 % Normal 0.0-1.0 [facility] Comment on above: Performed By: #### L 301.0100, L301.0120, L301.0105 #### ML - LABORATORY [address] [place] [address] EOS# 0.00 x10(3) Normal 0.00-0.54 [facility] Comment on above: Performed By: #### L 301.0100, L301.0120, L301.0105 #### - LABORATORY [address] [place] [address] Eosinophils/100 WBC (Bld) 0.4 % Low 0.5-4.9 [facility] Comment on above: Performed By: #### L 301.0100, L301.0120, L301.0105 #### [facility] [address] [place] [address] Erythrocyte distribution width (RBC) [Ratio] 16.6 % High 12.5-15.7 [facility] Comment on above: Performed By: #### L 301.0100, L301.0120, L301.0105 #### [facility] [address] [place] [address] Hematocrit (Bld) [Volume fraction] 35.9 % Low 36.0-48.0 [facility] Comment on above: Performed By: #### L 301.0100, L301.0120, L301.0105 #### [facility] [address] [place] [address] Hemoglobin (Bld) [Mass/Vol] 11.4 g/dL Low 12.0-16.0 [facility] Comment on above: Performed By: #### L 301.0100, L301.0120, L301.0105 #### [facility] [address] [place] [address] LYMPH# 2.20 x10(3) Normal 1.00-3.50 [facility] Comment on above: Performed By: #### L 301.0100, L301.0120, L301.0105 #### [facility] [address] [place] [address] Lymphocytes/100 WBC (Bld) 25.3 % Normal 16.0-48.0 [facility] Comment on above: Performed By: #### L 301.0100, L301.0120, L301.0105 #### [facility] [address] [place] [address] 13617 MCH (RBC) [Entitic mass] 28.1 pg Low 28.5-32.9 [facility] Comment on above: Performed By: #### L 301.0100, L301.0120, L301.0105 #### - LABORATORY [address] [place] [address] MCHC (RBC) [Mass/Vol] 31.9 g/dL Low 33.0-36.0 [facility] Comment on above: Performed By: #### L 301.0100, L301.0120, L301.0105 #### ML - LABORATORY [address] [place] [address] MCV (RBC) [Entitic vol] 88.2 fL Normal 80.0-99.0 [facility] Comment on above: Performed By: #### L 301.0100, L301.0120, L301.0105 #### [facility] [address] [place] [address] MONO# 0.60 x10(3) Normal 0.30-0.80 [facility] Comment on above: Performed By: #### L 301.0100, L301.0120, L301.0105 #### [facility] [address] [place] [address] 179[address] Monocytes/100 WBC (Bld) 6.7 % Normal 4.3-11.2 [facility] Comment on above: Performed By: #### L 301.0100, L301.0120, L301.0105 #### - LABORATORY [address] [place] [address] NEUT# 5.70 x10(3) Normal 1.40-6.50 [facility] Comment on above: Performed By: #### L 301.0100, L301.0120, L301.0105 #### [facility] [address] [place] [address] Neutrophils/100 WBC (Bld) 67.2 % Normal 45.0-73.0 [facility] Comment on above: Performed By: #### L 301.0100, L301.0120, L301.0105 #### - LABORATORY [address] [place] [address]186 Platelet mean volume (Bld) [Entitic vol] 8.1 fL Normal 7.5-9.5 [facility] Comment on above: Performed By: #### L 301.0100, L301.0120, L301.0105 #### ML - LABORATORY [address] [place] [address] 39660 PLT 332 X10(3) Normal 150-450 [facility] Comment on above: Performed By: #### L 301.0100, L301.0120, L301.0105 #### ML - LABORATORY [address] [place] [address] 84342 RBC 4.07 x10(6) Normal 3.30-5.00 [facility] Comment on above: Performed By: #### L 301.0100, L301.0120, L301.0105 #### ML - LABORATORY [address] [place] [address] WBC 8.5 x10(3) Normal 4.5-10.0 [facility] Comment on above: Performed By: #### L 301.0100, L301.0120, L301.0105 #### ML - LABORATORY [address] [place] [address] CBC W Auto Differential pane l (Bld)on 07-07-2022 BASO ABS 0.00 x10(3) 0.00 - 0.10 x10(3) [facility] Basophils/100 WBC (Bld) 0.4 % 0.0 - 1.0 % [facility] EOS ABS 0.00 x10(3) 0.00 - 0.54 x10(3) [facility] Eosinophils/100 WBC (Bld) 0.4 % Low 0.5 - 4.9 % [facility] Erythrocyte distribution width (RBC) [Ratio] 16.6 % High 12.5 - 15.7 % [facility] Hematocrit (Bld) [Volume fraction] 35.9 % Low 36.0 - 48.0 % [facility] Hemoglobin (Bld) [Mass/Vol] 11.4 g/dL Low 12.0 - 16.0 g/dL [facility] LYMPH ABS 2.20 x10(3) 1.00 - 3.50 x10(3) [facility] Lymphocytes/100 WBC (Bld) 25.3 % 16.0 - 48.0 % [facility] MCH (RBC) [Entitic mass] 28.1 pg Low 28.5 - 32.9 pg [facility] MCHC (RBC) [Mass/Vol] 31.9 g/dL Low 33.0 - 36.0 g/dL [facility] MCV (RBC) [Entitic vol] 88.2 fL 80.0 - 99.0 fl [facility] MONO ABS 0.60 x10(3) 0.30 - 0.80 x10(3) [facility] Monocytes/100 WBC (Bld) 6.7 % 4.3 - 11.2 % [facility] Neutrophil Ab 5.70 x10(3) 1.40 - 6.50 x10(3) [facility] Neutrophils/100 WBC (Bld) 67.2 % 45.0 - 73.0 % [facility] Platelet Count 332 X10(3) 150 - 450 X10(3) [facility] Platelet mean volume (Bld) [Entitic vol] 8.1 fL 7.5 - 9.5 fl [facility] RBC 4.07 x10(6) 3.30 - 5.00 x10(6) [facility] WBC 8.5 x10(3) 4.5 - 10.0 x10(3) [facility] EMERGENCY DEPARTMENT REPORTo n 07-07-2022 EMERGENCY [place] [address] HEALTH INFORMATION MANAGEMENT EMERGENCY DEPARTMENT REPORT Patient: ADINA ESCOBAR I HALINA MITCHELL M.D. [id number] [age] F Status: [facility] ER ED Date of Service: 07/07/22 ADDENDUM: [...] Will be for discharge. Report#: Dict ID [id number] / Int ID [id number] 07/21/22 2216 HALINA MITCHELL M.D. cc: KENTRELL DHALIWAL II, M.D.; HALINA MITCHELL M.D. << Signature on File>> Reported By: HALINA MITCHELL M.D. Signed By: HALINA MITCHELL M.D. Tests performed at: [address] [address] Normal [facility] EMERGENCY [place] [address] HEALTH INFORMATION MANAGEMENT EMERGENCY DEPARTMENT REPORT Patient: ADINA ESCOBAR I HALINA MITCHELL M.D. [id number] [age] F Status: [facility] ER ED Date of Service: 07/07/22 CHIEF [...] workup and clinical condition. Report#: Dict ID [id number] / Int ID [id number] 07/21/22 2216 HALINA MITCHELL M.D. cc: KENTRELL DHALIWAL II, M.D.; HALINA MITCHELL M.D. << Signature on File>> Reported By: HALINA MITCHELL M.D. Signed By: HALINA MITCHELL M.D. Tests performed at: [address] [address] Normal [facility] HEPATIC PANELon 07-07-2022 A:G RATIO 1.25 Normal 1.1-2.5 [facility] Comment on above: Performed By: #### L 100.0030, L100.0010, L100.0350 ####ML - [id number] [place] [address] Albumin [Mass/Vol] 3.9 g/dL Normal 3.5-5.2 [facility] Comment on above: Performed By: #### L 100.0030, L100.0010, L100.0350 ####ML - [id number] [place] [address] ALK. PHOS 117 U/L High 35-105 [facility] Comment on above: Performed By: #### L 100.0030, L100.0010, L100.0350 ####ML - [id number] [place] [address] ALT [Catalytic activity/Vol] 18 U/L Normal 5-33 [facility] Comment on above: Performed By: #### L 100.0030, L100.0010, L100.0350 ####ML - [id number] [place] [address] AST [Catalytic activity/Vol] 24 U/L Normal 5-32 [facility] Comment on above: Performed By: #### L 100.0030, L100.0010, L100.0350 ####ML - [id number] [place] [address] Bilirubin [Mass/Vol] 0.5 mg/dL Normal 0.2-1.2 [facility] Comment on above: Performed By: #### L 100.0030, L100.0010, L100.0350 ####ML - [id number] [place] [address] DIRECT BILIRUBI <0.2 Normal 0.0-0.3 [facility] Comment on above: Performed By: #### L 100.0030, L100.0010, L100.0350 ####ML - [id number] [place] [address] Globulin (S) [Mass/Vol] 3.1 g/dL Normal 1.5-4.5 [facility] Comment on above: Performed By: #### L 100.0030, L100.0010, L100.0350 ####ML - [id number] [place] [address] Protein [Mass/Vol] 7.0 g/dL Normal 6.4-8.3 [facility] Comment on above: Performed By: #### L 100.0030, L100.0010, L100.0350 ####ML - [id number] [place] [address] Hepatic function 2000 [facility] 07-07-2022 Albumin [Mass/Vol] 3.9 g/dL 3.5 - 5.2 g/dL [facility] Albumin/Globulin [Mass ratio] 1.25 {ratio} 1.1 - 2.5 [facility] ALP [Catalytic activity/Vol] 117 U/L High 35 - 105 U/L [facility] ALT [Catalytic activity/Vol] 18 U/L 5 - 33 U/L [facility] AST [Catalytic activity/Vol] 24 U/L 5 - 32 U/L [facility] Bilirubin [Mass/Vol] 0.5 mg/dL 0.2 - 1 .2 mg/dL [facility] Direct Bilirubin <0.2 0.0 - 0.3 mg/dL [facility] Globulin (S) [Mass/Vol] 3.1 g/dL 1.5 - 4.5 g/dL [facility] Protein [Mass/Vol] 7.0 g/dL 6.4 - 8.3 g/dL [facility] LIPASEon 07-07-2022 Lipase [Catalytic activity/Vol] 27 U/L Normal 13-60 [facility] Comment on above: Performed By: #### L 301.0100, L301.0120, L301.0105 #### ML - LABORATORY [address] [place] [address] LIPASE BLDon 07-07-2022 Lipase [Catalytic activity/Vol] 27 U/L 13 - 60 U/L [facility] UA W/C&Son 07-07-2022 Bilirubin Ql (U) Negative Normal NEGATIVE [facility] Comment on above: Order Comment: Urine Specimen Source+ CLEAN CATCH Performed By: #### L 200.0010 #### [facility] [address] [place] [address] Color (U) YELLOW Normal YELLOW [facility] Comment on above: Order Comment: Urine Specimen Source+ CLEAN CATCH Performed By: #### L 200.0010 #### ML [facility] [address] [place] [address] Glucose Ql (U) Negative Normal NEGATIVE [facility] Comment on above: Order Comment: Urine Specimen Source+ CLEAN CATCH Performed By: #### L 200.0010 #### [facility] [address] [place] [address] Hemoglobin Ql (U) Negative Normal NEGATIVE [facility] Comment on above: Order Comment: Urine Specimen Source+ CLEAN CATCH Performed By: #### L 200.0010 #### ML [facility] [address] [place] [address] Leukocyte esterase Test strip Ql (U) SMALL Normal NEGATIVE [facility] Comment on above: Order Comment: Urine Specimen Source+ CLEAN CATCH Performed By: #### L 200.0010 #### ML [facility] [address] [place] [address] 25511 Nitrite Ql (U) Positive Normal NEGATIVE [facility] Comment on above: Order Comment: Urine Specimen Source+ CLEAN CATCH Performed By: #### L 200.0010 #### ML - [facility] [address] [place] [address]64 pH (U) 6.0 [pH] Normal 5.0-8.0 [facility] Comment on above: Order Comment: Urine Specimen Source+ CLEAN CATCH Performed By: #### L 200.0010 #### ML - LABORATORY [address] [place] [address] Protein Ql (U) Negative Normal NEGATIVE [facility] Comment on above: Order Comment: Urine Specimen Source+ CLEAN CATCH Performed By: #### L 200.0010 #### ML - [facility] [address] [place] [address]1053 URINE APPEARANC CLEAR Normal CLEAR [facility] Comment on above: Order Comment: Urine Specimen Source+ CLEAN CATCH Performed By: #### L 200.0010 #### ML - [facility] [address] [place] [address] 31850 URINE KETONE Negative Normal NEGATIVE [facility] Comment on above: Order Comment: Urine Specimen Source+ CLEAN CATCH Performed By: #### L 200.0010 #### ML - LABORATORY [address] [place] [address] 61596 URINE SPECIFIC 1.015 Normal 1.001-1.035 [facility] Comment on above: Order Comment: Urine Specimen Source+ CLEAN CATCH Performed By: #### L 200.0010 #### ML - [facility] [address] [place] [address] URINE UROBILINO 0.2 EU/DL Normal 0.2-1.0 [facility] Comment on above: Order Comment: Urine Specimen Source+ CLEAN CATCH Performed By: #### L 200.0010 #### ML - [facility] [address] [place] [address] URINE MICROSCOPon 07-07-2022 AMORPHOUS TR Normal NEGATIVE [facility] Comment on above: Order Comment: Urine Specimen Source+ CLEAN CATCH Performed By: #### L 200.0010 #### ML - [facility] [address] [place] [address]86 Mucus Ql (Urine sed) TR Normal NEGATIVE [facility] Comment on above: Order Comment: Urine Specimen Source+ CLEAN CATCH Performed By: #### L 200.0010 #### ML - LABORATORY [address] [place] [address] SQUAMOUS OCC Normal NEGATIVE [facility] Comment on above: Order Comment: Urine Specimen Source+ CLEAN CATCH Performed By: #### L 200.0010 #### ML - LABORATORY [address] [place] [address] URINE BACTERIA 3+ Normal NEGATIVE [facility] Comment on above: Order Comment: Urine Specimen Source+ CLEAN CATCH Performed By: #### L 200.0010 #### ML - [facility] [address] [place] [address] 97033 URINE RBC 10-20 Normal 0-2 [facility] Comment on above: Order Comment: Urine Specimen Source+ CLEAN CATCH Performed By: #### L 200.0010 #### ML - LABORATORY [address] [place] [address] URINE WBC 40-50 Normal 0-5 [facility] Comment on above: Order Comment: Urine Specimen Source+ CLEAN CATCH Performed By: #### L 200.0010 #### ML - LABORATORY [address] [place] [address] Urinalysis complete panel (U )on 07-07-2022 Amorphous Crystals TR NEGATIVE [facility] Appearance (U) CLEAR CLEAR [facility] Bacteria, Urine 3+ NEGATIVE [facility] Bilirubin, Urine Negative NEGATIVE [facility] Blood, Urine Negative NEGATIVE [facility] Color (U) YELLOW YELLOW [facility] Glucose Ql (U) Negative NEGATIVE MG/[facility] Ketones Ql (U) Negative NEGATIVE MG/DL [facility] Leukocytes SMALL NEGATIVE [facility] Nitrites Urine Positive NEGATIVE [facility] pH (U) 6.0 [pH] 5.0 - 8.0 [facility] Protein.monoclonal (U) [Mass/Vol] Negative NEGATIVE MG/DL [facility] RBC, Urine 10-20 0 - 2 [facility] Specific [place], Ur 1.015 1.001 - 1.035 [facility] Squamous Epithelial Cells OCC NEGATIVE [facility] Ur Mucous TR NEGATIVE [facility] Urobilinogen, Urine 0.2 EU/DL 0.2 - 1. 0 EU/DL [facility] WBC, Urine 40-50 0 - 5 [facility] Urine Cultureon 07-07-2022 Bacteria identified Cx Nom [...] and its performance characteristics determined by the [facility]'s [facility] [place] ([facility]). It has not been cleared or approved by the FDA. -[facility] is regulated under CLIA as qualified to perform high-complexity testing. This test is used for clinical purposes. It should not be regarded as investigational or for research. SOURCE: Urine, Midstream clean catch Test Performed By: [place] [address] Signals Intelligence Analyst: Sven Wasserman III, M.D. See Below Normal [facility] CLINICAL RESUMEon 05-13-2022 CLINICAL RESUME [place] [address] HEALTH INFORMATION MANAGEMENT CLINICAL RESUME Patient: ADINA ESCOBAR I JD WAITE M.D. [id number] [age] F [facility] Date of Admission: 05/10/22 Date of Discharge: [...] DISCHARGE TIME: 35 minutes. Report#: Dict ID [id number] / Int ID [id number] 05/13/22 1042 JD WAITE M.D. cc: JD WAITE M.D. << Signature on File>> Reported By: JD WAITE M.D. Signed By: JD WAITE M.D. Tests performed at: [address] [address] Normal [facility] CBCon 05-12-2022 BASO# 0.10 x10(3) Normal 0.00-0.10 [facility] Comment on above: Performed By: #### L 200.0010 #### ML - [facility] [address] [place] [address] Basophils/100 WBC (Bld) 0.8 % Normal 0.0-1.0 [facility] Comment on above: Performed By: #### L 200.0010 #### ML - LABORATORY [address] [place] [address] 41933 EOS# 0.10 x10(3) Normal 0.00-0.54 [facility] Comment on above: Performed By: #### L 200.0010 #### ML - LABORATORY [address] [place] [address] 69190 Eosinophils/100 WBC (Bld) 1.0 % Normal 0.5-4.9 [facility] Comment on above: Performed By: #### L 200.0010 #### ML [facility] [address] [place] [address] 36779 Erythrocyte distribution width (RBC) [Ratio] 18.0 % High 12.5-15.7 [facility] Comment on above: Performed By: #### L 200.0010 #### ML [facility] [address] [place] [address] 06820 Hematocrit (Bld) [Volume fraction] 29.6 % Low 36.0-48.0 [facility] Comment on above: Performed By: #### L 200.0010 #### ML [facility] [address] [place] [address] 02879 Hemoglobin (Bld) [Mass/Vol] 9.7 g/dL Low 12.0-16.0 [facility] Comment on above: Performed By: #### L 200.0010 #### ML [facility] [address] [place] [address] 94379 LYMPH# 2.40 x10(3) Normal 1.00-3.50 [facility] Comment on above: Performed By: #### L 200.0010 #### ML [facility] [address] [place] [address] 08136 Lymphocytes/100 WBC (Bld) 22.5 % Normal 16.0-48.0 [facility] Comment on above: Performed By: #### L 200.0010 #### ML [facility] [address] [place] [address] 25596 MCH (RBC) [Entitic mass] 28.1 pg Low 28.5-32.9 [facility] Comment on above: Performed By: #### L 200.0010 #### ML - LABORATORY [address] [place] [address] 09944 MCHC (RBC) [Mass/Vol] 32.8 g/dL Low 33.0-36.0 [facility] Comment on above: Performed By: #### L 200.0010 #### ML - LABORATORY [address] [place] [address] 31355 MCV (RBC) [Entitic vol] 85.5 fL Normal 80.0-99.0 [facility] Comment on above: Performed By: #### L 200.0010 #### ML - LABORATORY [address] [place] [address] 16861 MONO# 1.00 x10(3) High 0.30-0.80 [facility] Comment on above: Performed By: #### L 200.0010 #### ML - LABORATORY [address] [place] [address] 37244 Monocytes/100 WBC (Bld) 9.0 % Normal 4.3-11.2 [facility] Comment on above: Performed By: #### L 200.0010 #### ML [facility] [address] [place] [address] 96650 NEUT# 7.20 x10(3) High 1.40-6.50 [facility] Comment on above: Performed By: #### L 200.0010 #### ML [facility] [address] [place] [address] 56429 Neutrophils/100 WBC (Bld) 66.7 % Normal 45.0-73.0 [facility] Comment on above: Performed By: #### L 200.0010 #### ML [facility] [address] [place] [address] 24265 Platelet mean volume (Bld) [Entitic vol] 8.6 fL Normal 7.5-9.5 [facility] Comment on above: Performed By: #### L 200.0010 #### ML [facility] [address] [place] [address] 17039 PLT 299 X10(3) Normal 150-450 [facility] Comment on above: Performed By: #### L 200.0010 #### ML [facility] [address] [place] [address] 50821 RBC 3.46 x10(6) Normal 3.30-5.00 [facility] Comment on above: Performed By: #### L 200.0010 #### ML [facility] [address] [place] [address] 85669 WBC 10.8 x10(3) High 4.5-10.0 [facility] Comment on above: Performed By: #### L 200.0010 #### ML [facility] [address] [place] [address] 99846 BASO# 0.10 x10(3) Normal 0.00-0.10 [facility] Comment on above: Performed By: #### L 200.0010 #### ML [facility] [address] [place] [address] 79042 Basophils/100 WBC (Bld) 0.5 % Normal 0.0-1.0 [facility] Comment on above: Performed By: #### L 200.0010 #### ML [facility] [address] [place] [address] 03174 EOS# 0.10 x10(3) Normal 0.00-0.54 [facility] Comment on above: Performed By: #### L 200.0010 #### ML [facility] [address] [place] [address] 35852 Eosinophils/100 WBC (Bld) 1.0 % Normal 0.5-4.9 [facility] Comment on above: Performed By: #### L 200.0010 #### ML [facility] [address] [place] [address] 13099 Erythrocyte distribution width (RBC) [Ratio] 18.1 % High 12.5-15.7 [facility] Comment on above: Performed By: #### L 200.0010 #### ML [facility] [address] [place] [address] 21148 Hematocrit (Bld) [Volume fraction] 27.3 % Low 36.0-48.0 [facility] Comment on above: Performed By: #### L 200.0010 #### ML - LABORATORY [address] [place] [address] 36536 Hemoglobin (Bld) [Mass/Vol] 9.0 g/dL Low 12.0-16.0 [facility] Comment on above: Performed By: #### L 200.0010 #### ML [facility] [address] [place] [address] 04834 LYMPH# 2.50 x10(3) Normal 1.00-3.50 [facility] Comment on above: Performed By: #### L 200.0010 #### ML [facility] [address] [place] [address] 70820 Lymphocytes/100 WBC (Bld) 21.5 % Normal 16.0-48.0 [facility] Comment on above: Performed By: #### L 200.0010 #### ML [facility] [address] [place] [address] 48999 MCH (RBC) [Entitic mass] 28.2 pg Low 28.5-32.9 [facility] Comment on above: Performed By: #### L 200.0010 #### ML [facility] [address] [place] [address] 39229 MCHC (RBC) [Mass/Vol] 33.1 g/dL Normal 33.0-36.0 [facility] Comment on above: Performed By: #### L 200.0010 #### ML - LABORATORY [address] [place] [address] 39758 MCV (RBC) [Entitic vol] 85.2 fL Normal 80.0-99.0 [facility] Comment on above: Performed By: #### L 200.0010 #### ML [facility] [address] [place] [address] 79010 MONO# 1.30 x10(3) High 0.30-0.80 [facility] Comment on above: Performed By: #### L 200.0010 #### ML [facility] [address] [place] [address] 69564 Monocytes/100 WBC (Bld) 11.1 % Normal 4.3-11.2 [facility] Comment on above: Performed By: #### L 200.0010 #### ML - LABORATORY [address] [place] [address] 55184 NEUT# 7.60 x10(3) High 1.40-6.50 [facility] Comment on above: Performed By: #### L 200.0010 #### ML - [facility] [address] [place] [address] 14251 Neutrophils/100 WBC (Bld) 65.9 % Normal 45.0-73.0 [facility] Comment on above: Performed By: #### L 200.0010 #### ML - [facility] [address] [place] [address] 63936 Platelet mean volume (Bld) [Entitic vol] 8.6 fL Normal 7.5-9.5 [facility] Comment on above: Performed By: #### L 200.0010 #### ML - [facility] [address] [place] [address] 98045 PLT 293 X10(3) Normal 150-450 [facility] Comment on above: Performed By: #### L 200.0010 #### [facility] - [facility] [address] [place] [address] 36800 RBC 3.21 x10(6) Low 3.30-5.00 [facility] Comment on above: Performed By: #### L 200.0010 #### [facility] - [facility] [address] [place] [address] 56289 WBC 11.6 x10(3) High 4.5-10.0 [facility] Comment on above: Performed By: #### L 200.0010 #### ML - LABORATORY [address] [place] [address] 49330 PROGRESS NOTEon 05-12-2022 PROGRESS [place] [address] HEALTH INFORMATION MANAGEMENT PROGRESS NOTE Patient: SHAWNADINA ROBERT M M.D. [id number] [age] F Status: DIS IN [facility] 2054- DATE OF PROGRESS NOTE: 05/12/2022 TIME: 10 abarbra Pacheco doing the note. SUBJECTIVE: 71-year-old white female, no nausea, vomiting, pain better, moving her bowels, tolerating liquid diet. OBJECTIVE: VITAL SIGNS: Stable. Afebrile, white count coming down. ABDOMEN: Soft, nontender. ASSESSMENT: 71-year-old white female with chronic abdominal pain, nausea and vomiting, but no evidence of any obstruction. PLAN: Advance diet as tolerated. We will sign off. Available as needed. Report#: Dict ID [id number] / Int ID [id number] KENTRELL PACHECO M.D. cc: KENTRELL PACHECO M.D. << Signature on File>> Reported By: KENTRELL PACHECO M.D. Signed By: KENTRELL PACHECO M.D. Tests performed at: [address] [address] Normal [facility] RENALon 05-12-2022 Albumin [Mass/Vol] 3.2 g/dL Low 3.5-5.2 [facility] Comment on above: Performed By: #### L 301.0100, L301.0120, L301.0105 #### ML - LABORATORY [address] [place] [address] 10012 Anion gap [Moles/Vol] 13.1 mmol/L Low 15-22 [facility] Comment on above: Performed By: #### L 301.0100, L301.0120, L301.0105 #### ML [facility] [address] [place] [address] 21763 Calcium [Mass/Vol] 8.5 mg/dL Low 8.8-10.2 [facility] Comment on above: Performed By: #### L 301.0100, L301.0120, L301.0105 #### ML - LABORATORY [address] [place] [address] 79402 Chloride [Moles/Vol] 110 mmol/L High 98-107 [facility] Comment on above: Performed By: #### L 301.0100, L301.0120, L301.0105 #### ML - LABORATORY [address] [place] [address] 95868 CO2 [Moles/Vol] 22 mmol/L Normal 22-29 [facility] Comment on above: Performed By: #### L 301.0100, L301.0120, L301.5 #### [facility] [address] [place] [address] 90055 Creatinine [Mass/Vol] 0.80 mg/dL Normal 0.50-0.90 [facility] Comment on above: Performed By: #### L 301.0100, L301.0120, L3.5 #### [facility] [address] [place] [address] 95126 eGFR if AFR ELOISA > 60 ml/min/1.73m2 Normal [facility] Comment on above: Result Comment: eGFR >= [...] (www.nkdep.nih.gov). Performed By: #### L 301.0100, L301.0120, L3.5 #### [facility] [address] [place] [address] 50845 eGFR nonAFR Eloisa > 60 ml/Min/1.73m2 Normal [facility] Comment on above: Performed By: #### L 301.0100, L301.0120, L301.5 #### [facility] [address] [place] [address] 27174 Glucose [Mass/Vol] 83 mg/dL Normal 82-115 [facility] Comment on above: Performed By: #### L 301.0100, L301.0120, L3.5 #### ML - LABORATORY [address] [place] [address] 31420 Phosphate [Mass/Vol] 1.8 mg/dL Low 2.5-4.5 [facility] Comment on above: Performed By: #### L 301.0100, L301.0120, L301.0105 #### ML - LABORATORY [address] [place] [address] 95399 Potassium [Moles/Vol] 3.1 mmol/L Low 3.5-5.0 [facility] Comment on above: Performed By: #### L 301.0100, L301.0120, L301.0105 #### ML - LABORATORY [address] [place] [address] 63835 Sodium [Moles/Vol] 142 mmol/L Normal 135-145 [facility] Comment on above: Performed By: #### L 301.0100, L301.0120, L301.0105 #### ML - LABORATORY [address] [place] [address] 81899 Urea nitrogen [Mass/Vol] 6 mg/dL Low 8-23 [facility] Comment on above: Performed By: #### L 301.0100, L301.0120, L301.0105 #### ML - LABORATORY [address] [place] [address] 34894 BMPon 05-11-2022 Anion gap [Moles/Vol] 16.1 mmol/L Normal 15-22 [facility] Comment on above: Performed By: #### L 301.0100, L301.0120, L301.0105 #### ML - LABORATORY [address] [place] [address] 49022 Calcium [Mass/Vol] 8.8 mg/dL Normal 8.8-10.2 [facility] Comment on above: Performed By: #### L 301.0100, L301.0120, L301.0105 #### ML - LABORATORY [address] [place] [address] 50072 Chloride [Moles/Vol] 105 mmol/L Normal 98-107 [facility] Comment on above: Performed By: #### L 301.0100, L301.0120, L301.0105 #### - LABORATORY [address] [place] [address] 91851 CO2 [Moles/Vol] 21 mmol/L Low 22-29 [facility] Comment on above: Performed By: #### L 301.0100, L301.0120, L301.0105 #### [facility] [address] [place] [address] 91915 Creatinine [Mass/Vol] 0.83 mg/dL Normal 0.50-0.90 [facility] Comment on above: Performed By: #### L 301.0100, L301.0120, L301.0105 #### [facility] [address] [place] [address] 24040 eGFR if AFR ELOISA > 60 ml/min/1.73m2 Normal [facility] Comment on above: Result Comment: eGFR >= [...] 301.0100, L301.0120, L301.0105 #### ML - LABORATORY [address] [place] [address] 83630 eGFR nonAFR Eloisa > 60 ml/Min/1.73m2 Normal [facility] Comment on above: Performed By: #### L 301.0100, L301.0120, L301.0105 #### [facility] [address] [place] [address] 53111 Glucose [Mass/Vol] 94 mg/dL Normal 82-115 [facility] Comment on above: Performed By: #### L 301.0100, L301.0120, L301.0105 #### ML - LABORATORY [address] [place] [address] 89502 Potassium [Moles/Vol] 4.1 mmol/L Normal 3.5-5.0 [facility] Comment on above: Performed By: #### L 301.0100, L301.0120, L301.0105 #### ML - LABORATORY [address] [place] [address] 17069 Sodium [Moles/Vol] 138 mmol/L Normal 135-145 [facility] Comment on above: Performed By: #### L 301.0100, L301.0120, L301.0105 #### ML - LABORATORY [address] [place] [address] 31025 Urea nitrogen [Mass/Vol] 6 mg/dL Low 8-23 [facility] Comment on above: Performed By: #### L 301.0100, L301.0120, L301.0105 #### - LABORATORY [address] [place] [address] 47068 CBCon 05-11-2022 BASO# 0.10 x10(3) Normal 0.00-0.10 [facility] Comment on above: Performed By: #### L 301.0100, L301.0120, L301.0105 #### - LABORATORY [address] [place] [address] 54690 Basophils/100 WBC (Bld) 0.9 % Normal 0.0-1.0 [facility] Comment on above: Performed By: #### L 301.0100, L301.0120, L301.0105 #### ML - LABORATORY [address] [place] [address] 90337 EOS# 0.00 x10(3) Normal 0.00-0.54 [facility] Comment on above: Performed By: #### L 301.0100, L301.0120, L301.0105 #### ML - LABORATORY [address] [place] [address] 21641 Eosinophils/100 WBC (Bld) 0.1 % Low 0.5-4.9 [facility] Comment on above: Performed By: #### L 301.0100, L301.0120, L301.0105 #### [facility] [address] [place] [address] 97409 Erythrocyte distribution width (RBC) [Ratio] 18.5 % High 12.5-15.7 [facility] Comment on above: Performed By: #### L 301.0100, L301.0120, L301.0105 #### - LABORATORY [address] [place] [address] 97093 Hematocrit (Bld) [Volume fraction] 31.0 % Low 36.0-48.0 [facility] Comment on above: Performed By: #### L 301.0100, L301.0120, L301.0105 #### [facility] [address] [place] [address] 85473 Hemoglobin (Bld) [Mass/Vol] 10.2 g/dL Low 12.0-16.0 [facility] Comment on above: Performed By: #### L 301.0100, L301.0120, L301.0105 #### [facility] [address] [place] [address] 61938 LYMPH# 2.30 x10(3) Normal 1.00-3.50 [facility] Comment on above: Performed By: #### L 301.0100, L301.0120, L301.0105 #### [facility] [address] [place] [address] 37169 Lymphocytes/100 WBC (Bld) 17.0 % Normal 16.0-48.0 [facility] Comment on above: Performed By: #### L 301.0100, L301.0120, L301.0105 #### [facility] [address] [place] [address] 22191 MCH (RBC) [Entitic mass] 28.3 pg Low 28.5-32.9 [facility] Comment on above: Performed By: #### L 301.0100, L301.0120, L301.0105 #### [facility] [address] [place] [address] 06324 MCHC (RBC) [Mass/Vol] 33.0 g/dL Normal 33.0-36.0 [facility] Comment on above: Performed By: #### L 301.0100, L301.0120, L301.0105 #### - LABORATORY [address] [place] [address] 20725 MCV (RBC) [Entitic vol] 85.8 fL Normal 80.0-99.0 [facility] Comment on above: Performed By: #### L 301.0100, L301.0120, L301.0105 #### [facility] [address] [place] [address] 41834 MONO# 1.10 x10(3) High 0.30-0.80 [facility] Comment on above: Performed By: #### L 301.0100, L301.0120, L301.0105 #### [facility] [address] [place] [address] 70249 Monocytes/100 WBC (Bld) 7.8 % Normal 4.3-11.2 [facility] Comment on above: Performed By: #### L 301.0100, L301.0120, L301.0105 #### [facility] [address] [place] [address] 43579 NEUT# 10.00 x10(3) High 1.40-6.50 [facility] Comment on above: Performed By: #### L 301.0100, L301.0120, L301.0105 #### [facility] [address] [place] [address] 28597 Neutrophils/100 WBC (Bld) 74.2 % High 45.0-73.0 [facility] Comment on above: Performed By: #### L 301.0100, L301.0120, L301.0105 #### - LABORATORY [address] [place] [address] 15524 Platelet mean volume (Bld) [Entitic vol] 8.5 fL Normal 7.5-9.5 [facility] Comment on above: Performed By: #### L 301.0100, L301.0120, L301.0105 #### ML - LABORATORY [address] [place] [address] 00685 PLT 337 X10(3) Normal 150-450 [facility] Comment on above: Performed By: #### L 301.0100, L301.0120, L301.0105 #### ML - LABORATORY [address] [place] [address] 67560 RBC 3.61 x10(6) Normal 3.30-5.00 [facility] Comment on above: Performed By: #### L 301.0100, L301.0120, L301.0105 #### [facility] - LABORATORY [address] [place] [address] 32865 WBC 13.5 x10(3) High 4.5-10.0 [facility] Comment on above: Performed By: #### L 301.0100, L301.0120, L301.0105 #### - LABORATORY [address] [place] [address] 35156 BASO# 0.00 x10(3) Normal 0.00-0.10 [facility] Comment on above: Performed By: #### L 200.0010 #### [facility] [address] [place] [address] 32886 Basophils/100 WBC (Bld) 0.3 % Normal 0.0-1.0 [facility] Comment on above: Performed By: #### L 200.0010 #### ML - LABORATORY [address] [place] [address] 49480 EOS# 0.00 x10(3) Normal 0.00-0.54 [facility] Comment on above: Performed By: #### L 200.0010 #### ML [facility] [address] [place] [address] 99038 Eosinophils/100 WBC (Bld) 0.2 % Low 0.5-4.9 [facility] Comment on above: Performed By: #### L 200.0010 #### ML [facility] [address] [place] [address] 79241 Erythrocyte distribution width (RBC) [Ratio] 18.6 % High 12.5-15.7 [facility] Comment on above: Performed By: #### L 200.0010 #### ML - LABORATORY [address] [place] [address] 90641 Hematocrit (Bld) [Volume fraction] 29.0 % Low 36.0-48.0 [facility] Comment on above: Performed By: #### L 200.0010 #### ML - LABORATORY [address] [place] [address] 28055 Hemoglobin (Bld) [Mass/Vol] 9.7 g/dL Low 12.0-16.0 [facility] Comment on above: Performed By: #### L 200.0010 #### ML - LABORATORY [address] [place] [address] 90192 LYMPH# 2.30 x10(3) Normal 1.00-3.50 [facility] Comment on above: Performed By: #### L 200.0010 #### ML - LABORATORY [address] [place] [address] 84402 Lymphocytes/100 WBC (Bld) 16.8 % Normal 16.0-48.0 [facility] Comment on above: Performed By: #### L 200.0010 #### ML [facility] [address] [place] [address] 72605 MCH (RBC) [Entitic mass] 28.5 pg Normal 28.5-32.9 [facility] Comment on above: Performed By: #### L 200.0010 #### ML - LABORATORY [address] [place] [address] 06590 MCHC (RBC) [Mass/Vol] 33.7 g/dL Normal 33.0-36.0 [facility] Comment on above: Performed By: #### L 200.0010 #### [facility] - LABORATORY [address] [place] [address] 97313 MCV (RBC) [Entitic vol] 84.8 fL Normal 80.0-99.0 [facility] Comment on above: Performed By: #### L 200.0010 #### [facility] - LABORATORY [address] [place] [address] 75610 MONO# 1.40 x10(3) High 0.30-0.80 [facility] Comment on above: Performed By: #### L 200.0010 #### ML - LABORATORY [address] [place] [address] 73067 Monocytes/100 WBC (Bld) 10.0 % Normal 4.3-11.2 [facility] Comment on above: Performed By: #### L 200.0010 #### [facility] - LABORATORY [address] [place] [address] 61145 NEUT# 9.80 x10(3) High 1.40-6.50 [facility] Comment on above: Performed By: #### L 200.0010 #### ML - LABORATORY [address] [place] [address] 49907 Neutrophils/100 WBC (Bld) 72.7 % Normal 45.0-73.0 [facility] Comment on above: Performed By: #### L 200.0010 #### [facility] - LABORATORY [address] [place] [address] 07384 Platelet mean volume (Bld) [Entitic vol] 8.2 fL Normal 7.5-9.5 [facility] Comment on above: Performed By: #### L 200.0010 #### [facility] - LABORATORY [address] [place] [address] 81732 PLT 322 X10(3) Normal 150-450 [facility] Comment on above: Performed By: #### L 200.0010 #### ML - LABORATORY [address] [place] [address] 98295 RBC 3.42 x10(6) Normal 3.30-5.00 [facility] Comment on above: Performed By: #### L 200.0010 #### ML - LABORATORY [address] [place] [address] 28083 WBC 13.5 x10(3) High 4.5-10.0 [facility] Comment on above: Performed By: #### L 200.0010 #### ML - LABORATORY [address] [place] [address] 14883 PROGRESS NOTEon 05-11-2022 [place] [address] HEALTH INFORMATION MANAGEMENT PROGRESS NOTE Patient: ADINA ESCBOAR I KENTRELL PACHECO M.D. [id number] [age] F Status: DIS IN [facility] [...] have to go probably to the [facility]. 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 We will check back tomorrow. Report#: Dict ID [id number] / Int ID [id number] KENTRELL PACHECO M.D. cc: KENTRELL PACHECO M.D. << Signature on File>> Reported By: KENTRELL PACHECO M.D. Signed By: KENTRELL PACHECO M.D. Tests performed at: [address] [address] Normal [facility] RENALon 05-11-2022 Albumin [Mass/Vol] 3.6 g/dL Normal 3.5-5.2 [facility] Comment on above: Performed By: #### L 301.0100, L301.0120, L301.0105 #### [facility] [address] [place] [address] 40378 Phosphate [Mass/Vol] 3.1 mg/dL Normal 2.5-4.5 [facility] Comment on above: Performed By: #### L 301.0100, L301.0120, L301.0105 #### [facility] [address] [place] [address] [address] ABDOMEN (KUB)1 VIEWon 2021 ABDOMEN (KUB)[address] [address] Name: ADINA ESCOBAR Jovan Phys: JD WAITE M.D. : [birth year] Age: 71 Sex: F Acct: [id number] Loc: [facility] Exam Date: 05/10/22 Status: ADM [facility] No.: Unit Number: [id number] Exam # Type/Exam [id number] RAD / ABDOMEN (KUB)1 VIEW EXAMINATION: Exam [...] beyond GE junction. Electronically signed By Vladimir Garcai DO 05/10/2022 12:35:45 PM EST Workstation ID : [id number] < > Reported By: VLADIMIR GARCIA D.O. Signed In Fluency By: VLADIMIR GARCIA D.O. << Signature on File>> Reported By: VLADIMIR GARCIA D.O. Signed By: VLADIMIR GARCIA D.O. Tests performed at: [address] [address] Normal [facility] CBCon 05-10-2022 BASO# 0.10 x10(3) Normal 0.00-0.10 [facility] Comment on above: Performed By: #### L 301.0100, L301.0120, L301.0105 #### - LABORATORY [address] [place] [address] 48573 Basophils/100 WBC (Bld) 0.6 % Normal 0.0-1.0 [facility] Comment on above: Performed By: #### L 301.0100, L301.0120, L301.0105 #### - LABORATORY [address] [place] [address] 21391 EOS# 0.00 x10(3) Normal 0.00-0.54 [facility] Comment on above: Performed By: #### L 301.0100, L301.0120, L301.0105 #### [facility] [address] [place] [address] 54306 Eosinophils/100 WBC (Bld) 0.1 % Low 0.5-4.9 [facility] Comment on above: Performed By: #### L 301.0100, L301.0120, L301.0105 #### [facility] [address] [place] [address] 45449 Erythrocyte distribution width (RBC) [Ratio] 18.3 % High 12.5-15.7 [facility] Comment on above: Performed By: #### L 301.0100, L301.0120, L301.0105 #### - LABORATORY [address] [place] [address] 73942 Hematocrit (Bld) [Volume fraction] 30.8 % Low 36.0-48.0 [facility] Comment on above: Performed By: #### L 301.0100, L301.0120, L301.0105 #### - LABORATORY [address] [place] [address] 25592 Hemoglobin (Bld) [Mass/Vol] 10.1 g/dL Low 12.0-16.0 [facility] Comment on above: Performed By: #### L 301.0100, L301.0120, L301.0105 #### [facility] [address] [place] [address] 63959 LYMPH# 1.10 x10(3) Normal 1.00-3.50 [facility] Comment on above: Performed By: #### L 301.0100, L301.0120, L301.0105 #### [facility] [address] [place] [address] 98674 Lymphocytes/100 WBC (Bld) 8.9 % Low 16.0-48.0 [facility] Comment on above: Performed By: #### L 301.0100, L301.0120, L301.0105 #### [facility] [address] [place] [address] 81539 MCH (RBC) [Entitic mass] 27.6 pg Low 28.5-32.9 [facility] Comment on above: Performed By: #### L 301.0100, L301.0120, L301.0105 #### [facility] [address] [place] [address] 89763 MCHC (RBC) [Mass/Vol] 32.7 g/dL Low 33.0-36.0 [facility] Comment on above: Performed By: #### L 301.0100, L301.0120, L301.0105 #### [facility] [address] [place] [address] 62128 MCV (RBC) [Entitic vol] 84.5 fL Normal 80.0-99.0 [facility] Comment on above: Performed By: #### L 301.0100, L301.0120, L301.0105 #### [facility] [address] [place] [address] 77683 MONO# 0.50 x10(3) Normal 0.30-0.80 [facility] Comment on above: Performed By: #### L 301.0100, L301.0120, L301.0105 #### [facility] [address] [place] [address] 25348 Monocytes/100 WBC (Bld) 3.7 % Low 4.3-11.2 [facility] Comment on above: Performed By: #### L 301.0100, L301.0120, L301.0105 #### [facility] - LABORATORY [address] [place] [address] 82391 NEUT# 10.90 x10(3) High 1.40-6.50 [facility] Comment on above: Performed By: #### L 301.0100, L301.0120, L301.0105 #### [facility] - LABORATORY [address] [place] [address] 50094 Neutrophils/100 WBC (Bld) 86.7 % High 45.0-73.0 [facility] Comment on above: Performed By: #### L 301.0100, L301.0120, L301.0105 #### - LABORATORY [address] [place] [address] 50249 Platelet mean volume (Bld) [Entitic vol] 8.6 fL Normal 7.5-9.5 [facility] Comment on above: Performed By: #### L 301.0100, L301.0120, L301.0105 #### - LABORATORY [address] [place] [address] 75894 PLT 333 X10(3) Normal 150-450 [facility] Comment on above: Performed By: #### L 301.0100, L301.0120, L301.0105 #### - LABORATORY [address] [place] [address] 19377 RBC 3.65 x10(6) Normal 3.30-5.00 [facility] Comment on above: Performed By: #### L 301.0100, L301.0120, L301.0105 #### [facility] - LABORATORY [address] [place] [address] 08584 WBC 12.5 x10(3) High 4.5-10.0 [facility] Comment on above: Performed By: #### L 301.0100, L301.0120, L301.0105 #### - LABORATORY [address] [place] [address] 99016 CREATon 05-10-2022 Creatinine [Mass/Vol] 0.89 mg/dL Normal 0.50-0.90 [facility] Comment on above: Performed By: #### L 200.0010 #### [facility] [address] [place] [address] 27780 eGFR if AFR ELOISA > 60 ml/min/1.73m2 [facility] Comment on above: Result Comment: eGFR >= [...] #### L 200.0010 #### ML - LABORATORY [address] [place] [address] 35365 eGFR nonAFR Eloisa > 60 ml/Min/1.73m2 Normal [facility] Comment on above: Performed By: #### L 200.0010 #### [facility] [address] [place] [address] ABD W CONTRASTon 05-10-20 CT ABD W CONTRAST [place] [address] Name: ADINA ESCOBAR I Phys: JD WAITE M.D. : [birth year] Age: 71 Sex: F Acct: [id number] Loc: [facility] Exam Date: 05/10/22 Status: ADM [facility] No.: Unit Number: [id number] Exam # Type/Exam [id number] CT / CT ABD W CONTRAST EXAMINATION: [...] By: EDMUNDO DIAZ M.D. Tests performed at: [place] [address] Normal [facility] GLUCOSE FSon 05-10-2022 Glucose [Mass/Vol] 135 mg/dL High 70-110 [facility] Comment on above: Performed By: #### L 200.0010 #### [facility] [address] [place] [address] 27635 PROGRESS NOTEon 05-10-2022 [place] [address] HEALTH INFORMATION MANAGEMENT PROGRESS NOTE Patient: SHAWN,KENTRELL DUKES M.D. [id number] [age] F Status: DIS IN [facility] [...] anymore bowel surgeries having done at the [facility] and she is well aware of [...] here. She would do best at the [facility]. She has a high mortality -morbidity with her anatomical situation. She understands that. We will see what her labs show today. Report#: Dict ID [id number] / Int ID [id number] KENTRELL PACHECO M.D. cc: KENTRELL PACHECO M.D. << Signature on File>> Reported By: KENTRELL PACHECO M.D. Signed By: KENTRELL PACHECO M.D. Tests performed at: [address] [address] Normal [facility] URINALYSISon 05-10-2022 Bilirubin Ql (U) Negative Normal NEGATIVE [facility] Comment on above: Performed By: #### L 301.0100, L301.0120, L301.0105 #### [facility] [address] [place] [address] 08879 Color (U) YELLOW Normal YELLOW [facility] Comment on above: Performed By: #### L 301.0100, L301.0120, L301.0105 #### [facility] [address] [place] [address] 56616 Glucose Ql (U) Negative Normal NEGATIVE [facility] Comment on above: Performed By: #### L 301.0100, L301.0120, L301.0105 #### - LABORATORY [address] [place] [address] 60660 Hemoglobin Ql (U) MODERATE Normal NEGATIVE [facility] Comment on above: Performed By: #### L 301.0100, L301.0120, L301.0105 #### - LABORATORY [address] [place] [address] 06614 Leukocyte esterase Test strip Ql (U) Negative Normal NEGATIVE [facility] Comment on above: Performed By: #### L 301.0100, L301.0120, L301.0105 #### - LABORATORY [address] [place] [address] 30104 Nitrite Ql (U) Negative Normal NEGATIVE [facility] Comment on above: Performed By: #### L 301.0100, L301.0120, L301.0105 #### [facility] [address] [place] [address] 01077 pH (U) 7.0 [pH] Normal 5.0-8.0 [facility] Comment on above: Performed By: #### L 301.0100, L301.0120, L301.0105 #### - LABORATORY [address] [place] [address] 53224 Protein Ql (U) Negative Normal NEGATIVE [facility] Comment on above: Performed By: #### L 301.0100, L301.0120, L301.0105 #### - LABORATORY [address] [place] [address] 01461 URINE APPEARANC CLEAR Normal CLEAR [facility] Comment on above: Performed By: #### L 301.0100, L301.0120, L301.0105 #### ML - LABORATORY [address] [place] [address] 70977 URINE KETONE 15 MG/DL Normal NEGATIVE [facility] Comment on above: Performed By: #### L 301.0100, L301.0120, L301.0105 #### [facility] [address] [place] [address] 63171 URINE SPECIFIC 1.020 Normal 1.001-1.035 [facility] Comment on above: Performed By: #### L 301.0100, L301.0120, L301.0105 #### [facility] - LABORATORY [address] [place] [address] 82139 URINE UROBILINO 0.2 EU/DL Normal 0.2-1.0 [facility] Comment on above: Performed By: #### L 301.0100, L301.0120, L301.0105 #### [facility] - LABORATORY [address] [place] [address] 10071 CBCon 05-09-2022 BASO# 0.10 x10(3) Normal 0.00-0.10 [facility] Comment on above: Performed By: #### L 200.0010 #### [facility] [address] [place] [address] 94113 Basophils/100 WBC (Bld) 0.4 % Normal 0.0-1.0 [facility] Comment on above: Performed By: #### L 200.0010 #### [facility] [address] [place] [address] 51365 EOS# 0.00 x10(3) Normal 0.00-0.54 [facility] Comment on above: Performed By: #### L 200.0010 #### [facility] [address] [place] [address] 01531 Eosinophils/100 WBC (Bld) 0.2 % Low 0.5-4.9 [facility] Comment on above: Performed By: #### L 200.0010 #### [facility] [address] [place] [address] 54992 Erythrocyte distribution width (RBC) [Ratio] 18.2 % High 12.5-15.7 [facility] Comment on above: Performed By: #### L 200.0010 #### [facility] [address] [place] [address] 58867 Hematocrit (Bld) [Volume fraction] 30.8 % Low 36.0-48.0 [facility] Comment on above: Performed By: #### L 200.0010 #### [facility] [address] [place] [address] 91242 Hemoglobin (Bld) [Mass/Vol] 10.2 g/dL Low 12.0-16.0 [facility] Comment on above: Performed By: #### L 200.0010 #### [facility] [address] [place] [address] 91035 LYMPH# 2.10 x10(3) Normal 1.00-3.50 [facility] Comment on above: Performed By: #### L 200.0010 #### [facility] [address] [place] [address] 58893 Lymphocytes/100 WBC (Bld) 12.1 % Low 16.0-48.0 [facility] Comment on above: Performed By: #### L 200.0010 #### [facility] [address] [place] [address] 13380 MCH (RBC) [Entitic mass] 27.8 pg Low 28.5-32.9 [facility] Comment on above: Performed By: #### L 200.0010 #### [facility] [address] [place] [address] 04559 MCHC (RBC) [Mass/Vol] 33.0 g/dL Normal 33.0-36.0 [facility] Comment on above: Performed By: #### L 200.0010 #### [facility] [address] [place] [address] 92673 MCV (RBC) [Entitic vol] 84.3 fL Normal 80.0-99.0 [facility] Comment on above: Performed By: #### L 200.0010 #### [facility] [address] [place] [address] 08119 MONO# 1.30 x10(3) High 0.30-0.80 [facility] Comment on above: Performed By: #### L 200.0010 #### [facility] [address] [place] [address] 49598 Monocytes/100 WBC (Bld) 7.3 % Normal 4.3-11.2 [facility] Comment on above: Performed By: #### L 200.0010 #### [facility] [address] [place] [address] 08972 NEUT# 14.10 x10(3) High 1.40-6.50 [facility] Comment on above: Performed By: #### L 200.0010 #### ML - LABORATORY [address] [place] [address] 45582 Neutrophils/100 WBC (Bld) 80.0 % High 45.0-73.0 [facility] Comment on above: Performed By: #### L 200.0010 #### ML - LABORATORY [address] [place] [address] 27238 Platelet mean volume (Bld) [Entitic vol] 8.1 fL Normal 7.5-9.5 [facility] Comment on above: Performed By: #### L 200.0010 #### ML - LABORATORY [address] [place] [address] 67028 PLT 308 X10(3) Normal 150-450 [facility] Comment on above: Performed By: #### L 200.0010 #### ML - LABORATORY [address] [place] [address] 27828 RBC 3.65 x10(6) Normal 3.30-5.00 [facility] Comment on above: Performed By: #### L 200.0010 #### [facility] [address] [place] [address] 86457 WBC 17.6 x10(3) Abnormal 4.5-10.0 [facility] Comment on above: Result Comment: De lta check (#) indicates a significant change in this laboratory value. It needs clinical correlation with patient situation or treatment. If the change in this test does not match your clinical situation or therapy, you may wish to re-test to verify the result. Performed By: #### L 200.0010 #### [facility] - LABORATORY [address] [place] [address] 75907 D-DIMERon 05-09-2022 D-DIMER <200 Normal <200-230 [facility] Comment on above: Result Comment: The cut-off level recommended for the exclusion of pulmonary embolism(PE) or deep vein thrombosis(DVT) is <=230ng/mL DDU. Performed By: #### L 200.0010 #### ML - LABORATORY [address] [place] [address] 68085 ECHO COMPLETEon 05-09-2022 [place] [address] HEALTH INFORMATION MANAGEMENT CARDIOLOGY REPORT Patient: ADINA ESCOBAR WAYMARIANN Escoto D.O. [id number] [age] F Status: ADM IN [facility] 2054- Exam # Type/Exam [id number] CARD / ECHO COMPLETE DATE OF SERVICE: 05/09/2022 PROCEDURE: Echocardiogram. 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 CLINICAL INFORMATION: Syncope. HEIGHT: 61. WEIGHT: 158. [...] Diastolic function is normal. Report#: Dict ID [id number] / Int ID [id number] 05/12/22 0508 JAVED REYES D.O. cc: DALILA GRAY C.N.P. << Signature on File>> Reported By: JAVED REYES D.O. Signed By: JAVED REYES D.O. Tests performed at: [place] [address] [facility] EMERGENCY DEPARTMENT REPORTo n 05-09-2022 EMERGENCY [place] [address] HEALTH INFORMATION MANAGEMENT EMERGENCY DEPARTMENT REPORT Patient: ADINA ESCOBAR I MARILYN LYNN M.D. [id number] [age] F [facility] Date of Service: 05/08/22 [...] hospitalist. IMPRESSION: Syncope, hypertension. Report#: Dict ID [id number] / Int ID [id number] 05/14/22 1210 MARILYN LYNN M.D. cc: KENTRELL DHALIWAL II, M.D.; MARILYN LYNN M.D. << Signature on File>> Reported By: MARILYN LYNN M.D. Signed By: MARILYN LYNN M.D. Tests performed at: [place] [address] [facility] EMERGENCY [place] [address] HEALTH INFORMATION MANAGEMENT EMERGENCY DEPARTMENT REPORT Patient: ADINA ESCOBAR I CHRISSIEMARILYN OSMAN Sveta Klein [id number] [age] F Status: DIS IN [facility] 2054-A Date of Service: 05/08/22 CHIEF COMPLAINT: Hip [...] The patient has good peripheral pulses. NEUROLOGIC: [place] coma scale is 15. No gross focal [...] fluids here, some antiemetics. Report#: Dict ID [id number] / Int ID [id number] 05/14/22 1210 MARILYN LYNN M.D. cc: KENTRELL DHALIWAL II, M.D.; MARILYN LYNN M.D. << Signature on File>> Reported By: MARILYN LYNN M.D. Signed By: MARILYN LYNN M.D. Tests performed at: [address] [address] Normal [facility] GLUCOSE FSon 05-09-2022 Glucose [Mass/Vol] 130 mg/dL High 70-110 [facility] Comment on above: Performed By: #### L 301.0100, L301.0120, L301.0105 #### - LABORATORY [address] [place] [address] 31367 MAGNESIUMon 05-09-2022 Magnesium [Mass/Vol] 1.9 mg/dL Normal 1.6-2.4 [facility] Comment on above: Order Comment: ADD O N Performed By: #### L 301.0100, L301.0120, L301.0105 #### - LABORATORY [address] [place] [address] 10925 PTon 05-09-2022 INR Coag (PPP) [Relative time] 1.2 {INR} High 0.8-1.1 [facility] Comment on above: Result Comment: [...] systemic embolism) 2.0-3.0 AMI (to prevent recurrent MS) 2.5-3.5 Valvular heart disease 2.0-3.0 Atrial fibrillation 2.0-3.0 Mechanical prosthetic valves (high risk) 2.5-3.5 Bileaflet mechanical valve in aortic position 2.0-3.0 Presence of Lupus Anticoagulant or Antiphospholipid Antibodies 2.5-3.5 PANIC VALUE: GREATER THAN OR EQUAL TO 4.5 Performed By: #### L 200.3190, L200.3001 #### ML - LABORATORY [address] [place] [address] 17695 PT Coag (PPP) [Time] 13.3 s High 9.4-12.5 [facility] Comment on above: Performed By: #### L 200.3190, L200.3001 #### - LABORATORY [address] [place] [address] 04670 RAPID COVIDon 05-09-2022 SARS-CoV-2 (COVID-19) RNA RENATA+probe Ql (Unsp spec) Negative Normal NEGATIVE [facility] Comment on above: Result Comment: [...] 200.3190, L200.3001 #### [facility] [address] [place] [address] ABDOMEN (KUB)1 VIEWon 2021 ABDOMEN (KUB)1 VIEW [place] [address] Name: ADINA ESCOBAR I Phys: MARILYN LYNN M.D. : [birth year] Age: 71 Sex: F Acct: [id number] Loc: ED Exam Date: 05/08/22 Status: REG ER Radiology No.: Unit Number: [id number] Exam # Type/Exam [id number] RAD / ABDOMEN (KUB)1 VIEW EXAMINATION: ONE [...] By: EDMUNDO DIAZ M.D. Tests performed at: [address] [address] Normal [facility] CBCon 05-08-2022 BASO# 0.10 x10(3) Normal 0.00-0.10 [facility] Comment on above: Performed By: #### L 200.3190, L200.3001 #### ML - LABORATORY [address] [place] [address] 43857 Basophils/100 WBC (Bld) 0.7 % Normal 0.0-1.0 [facility] Comment on above: Performed By: #### L 200.3190, L200.3001 #### ML - LABORATORY [address] [place] [address] 81355 EOS# 0.10 x10(3) Normal 0.00-0.54 [facility] Comment on above: Performed By: #### L 200.3190, L200.3001 #### ML - LABORATORY [address] [place] [address] 99131 Eosinophils/100 WBC (Bld) 0.7 % Normal 0.5-4.9 [facility] Comment on above: Performed By: #### L 200.3190, L200.3001 #### ML - LABORATORY [address] [place] [address] 70267 Erythrocyte distribution width (RBC) [Ratio] 18.1 % High 12.5-15.7 [facility] Comment on above: Performed By: #### L 200.3190, L200.3001 #### ML - LABORATORY [address] [place] [address] 38198 Hematocrit (Bld) [Volume fraction] 33.8 % Low 36.0-48.0 [facility] Comment on above: Performed By: #### L 200.3190, L200.3001 #### ML - LABORATORY [address] [place] [address] 32161 Hemoglobin (Bld) [Mass/Vol] 11.2 g/dL Low 12.0-16.0 [facility] Comment on above: Performed By: #### L 200.3190, L200.3001 #### ML - LABORATORY [address] [place] [address] 37393 LYMPH# 2.70 x10(3) Normal 1.00-3.50 [facility] Comment on above: Performed By: #### L 200.3190, L200.3001 #### ML - LABORATORY [address] [place] [address] 06503 Lymphocytes/100 WBC (Bld) 30.2 % Normal 16.0-48.0 [facility] Comment on above: Performed By: #### L 200.3190, L200.3001 #### ML - LABORATORY [address] [place] [address] 77881 MCH (RBC) [Entitic mass] 27.7 pg Low 28.5-32.9 [facility] Comment on above: Performed By: #### L 200.3190, L200.3001 #### ML - LABORATORY [address] [place] [address] 39192 MCHC (RBC) [Mass/Vol] 33.0 g/dL Normal 33.0-36.0 [facility] Comment on above: Performed By: #### L 200.3190, L200.3001 #### [facility] - LABORATORY [address] [place] [address] 30087 MCV (RBC) [Entitic vol] 84.1 fL Normal 80.0-99.0 [facility] Comment on above: Performed By: #### L 200.3190, L200.3001 #### [facility] - LABORATORY [address] [place] [address] 18340 MONO# 0.80 x10(3) Normal 0.30-0.80 [facility] Comment on above: Performed By: #### L 200.3190, L200.3001 #### [facility] - LABORATORY [address] [place] [address] 43780 Monocytes/100 WBC (Bld) 8.4 % Normal 4.3-11.2 [facility] Comment on above: Performed By: #### L 200.3190, L200.3001 #### [facility] - LABORATORY [address] [place] [address] 51868 NEUT# 5.40 x10(3) Normal 1.40-6.50 [facility] Comment on above: Performed By: #### L 200.3190, L200.3001 #### [facility] - LABORATORY [address] [place] [address] 79830 Neutrophils/100 WBC (Bld) 60.0 % Normal 45.0-73.0 [facility] Comment on above: Performed By: #### L 200.3190, L200.3001 #### [facility] - LABORATORY [address] [place] [address] 98559 Platelet mean volume (Bld) [Entitic vol] 8.0 fL Normal 7.5-9.5 [facility] Comment on above: Performed By: #### L 200.3190, L200.3001 #### [facility] - LABORATORY [address] [place] [address] 50013 PLT 372 X10(3) Normal 150-450 [facility] Comment on above: Performed By: #### L 200.3190, L200.3001 #### ML - LABORATORY [address] [place] [address] 86887 RBC 4.02 x10(6) Normal 3.30-5.00 [facility] Comment on above: Performed By: #### L 200.3190, L200.3001 #### ML - LABORATORY [address] [place] [address] 51648 WBC 9.0 x10(3) Normal 4.5-10.0 [facility] Comment on above: Performed By: #### L 200.3190, L200.3001 #### [facility] - LABORATORY [address] [place] [address] 53152 CMPon 05-08-2022 A:G RATIO 1.30 Normal 1.1-2.5 [facility] Comment on above: Performed By: #### L 200.3190, L200.3001 #### [facility] - LAB[facility]ATORY [address] [place] [address] 69496 Albumin [Mass/Vol] 3.9 g/dL Normal 3.5-5.2 [facility] Comment on above: Performed By: #### L 200.3190, L200.3001 #### [facility] - [facility] [address] [place] [address] 71312 ALK. PHOS 126 U/L High 35-105 [facility] Comment on above: Performed By: #### L 200.3190, L200.3001 #### [facility] - LABORATORY [address] [place] [address] 71577 ALT [Catalytic activity/Vol] 17 U/L Normal 5-33 [facility] Comment on above: Performed By: #### L 200.3190, L200.3001 #### [facility] - LAB[facility]ATORY [address] [place] [address] [id number] Anion gap [Moles/Vol] 18.1 mmol/L Normal 15-22 [facility] Comment on above: Performed By: #### L 200.3190, L200.3001 #### [facility] - LABORATORY [address] [place] [address] [id number] AST [Catalytic activity/Vol] 21 U/L Normal 5-32 [facility] Comment on above: Performed By: #### L 200.3190, L200.3001 #### ML - LABORATORY [address] [place] [address] 45319 Bilirubin [Mass/Vol] 0.4 mg/dL Normal 0.2-1.2 [facility] Comment on above: Performed By: #### L 200.3190, L200.3001 #### [facility] - LABORATORY [address] [place] [address] 55779 Calcium [Mass/Vol] 9.1 mg/dL Normal 8.8-10.2 [facility] Comment on above: Performed By: #### L 200.3190, L200.3001 #### [facility] - LABORATORY [address] [place] [address] 24203 Chloride [Moles/Vol] 109 mmol/L High 98-107 [facility] Comment on above: Performed By: #### L 200.3190, L200.3001 #### [facility] - LABORATORY [address] [place] [address] CO2 [Moles/Vol] 19 mmol/L Low 22-29 [facility] Comment on above: Performed By: #### L 200.3190, L200.3001 #### - LABORATORY [address] [place] [address] 39198 Creatinine [Mass/Vol] 1.26 mg/dL High 0.50-0.90 [facility] Comment on above: Performed By: #### L 200.3190, L200.3001 #### [facility] - LABORATORY [address] [place] [address] 64733 eGFR if AFR ELOISA 51 [facility] Comment on above: Result Comment: eGFR [...] #### L 200.3190, L200.3001 #### - LABORATORY [address] [place] [address] 19458 eGFR nonAFR Eloisa 42 [facility] Comment on above: Performed By: #### L 200.3190, L200.3001 #### [facility] - LABORATORY [address] [place] [address] Globulin (S) [Mass/Vol] 3.0 g/dL Normal 1.5-4.5 [facility] Comment on above: Performed By: #### L 200.3190, L200.3001 #### [facility] [address] [place] [address] 76321 Glucose [Mass/Vol] 108 mg/dL Normal 82-115 [facility] Comment on above: Performed By: #### L 200.3190, L200.3001 #### [facility] - LABORATORY [address] [place] [address] 72118 Potassium [Moles/Vol] 4.1 mmol/L Normal 3.5-5.0 [facility] Comment on above: Performed By: #### L 200.3190, L200.3001 #### [facility] - LABORATORY [address] [place] [address] 57037 Protein [Mass/Vol] 6.9 g/dL Normal 6.4-8.3 [facility] Comment on above: Performed By: #### L 200.3190, L200.3001 #### [facility] [address] [place] [address] 36405 Sodium [Moles/Vol] 142 mmol/L Normal 135-145 [facility] Comment on above: Performed By: #### L 200.3190, L200.3001 #### [facility] - LABORATORY [address] [place] [address] 94898 Urea nitrogen [Mass/Vol] 4 mg/dL Low 8-23 [facility] Comment on above: Performed By: #### L 200.3190, L200.3001 #### [facility] - LABORATORY [address] [place] [address] BRAIN WITHOUT CONTRAST- C TBon 05-08-2022 CT BRAIN WITHOUT CONTRAST- CTB [address] [address] Name: ADINA ESCOBAR I Phys: MARILYN LYNN M.D. : [birth year] Age: 71 Sex: F Acct: [id number] Loc: ED Exam Date: 05/08/22 Status: REG ER Radiology No.: Unit Number: [id number] Exam # Type/Exam [id number] CT / CT BRAIN WITHOUT CONTRAST- CTB [...] : [id number] < > Reported By: EDMUNDO DAIZ M.D. Signed In Fluency By: EDMUNDO DIAZ [...] By: EDMUNDO DIAZ M.D. Addendum Transcribed By: 05/08/222137 RADIOLOGIS << Signature on File>> Reported By: EDMUNDO DIAZ M.D. Signed By: EDMUNDO DIAZ M.D. Tests performed at: [place] [address] Normal [facility] ELECTROCARDIOGRAMon 05-08-20 22 [place] [address] [facility] ELECTROCARDIOGRAM REPORT Patient: ADINA ESCOBAR I Ordering: MARILYN LYNN M.D. [id number] [age] F Exam Date: 05/08/22 Report #: [id number] Status: REG ER ED Test Reason : [...] was found Confirmed by MARILYN LYNN MD ([id number]) on 05/08/2022 9:20:29 PM Referred By: MARILYN LYNN Confirmed By:MARILYN LYNN MD Signed in Chat& (ChatAnd) 05/08/222120 MARILYN LYNN M.D. cc: << Signature on File>> Reported By: MARILYN LYNN M.D. Signed By: MARILYN LYNN M.D. Tests performed at: [place] [address] Normal [facility] HIP UNILATERAL 2-3 VIEWSon 0 05-08-2022 HIP UNILATERAL 2-3 VIEWS [place] [address] Name: ADINA ESCOBAR I Phys: MARILYN LYNN M.D. : 51 Age: 71 Sex: F Acct: [id number] Loc: ED Exam Date: 05/08/22 Status: REG ER Radiology No.: Unit Number: [id number] Exam # Type/Exam [id number] RAD / HIP UNILATERAL 2-3 VIEWS EXAMINATION: [...] the left hip. Electronically signed By Edmundo Diza MD 05/08/2022 9:51:49 PM EST Workstation ID : [id number] < > Reported By: EDMUNDO DIAZ M.D. Signed In Fluency By: EDMUNDO DIAZ M.D. << Signature on File>> Reported By: EDMUNDO DIAZ M.D. Signed By: EDMUNDO DIAZ M.D. Tests performed at: [place] [address] Normal [facility] LIPASEon 05-08-2022 Lipase [Catalytic activity/Vol] 16 U/L Normal 13-60 [facility] Comment on above: Performed By: #### L 200.3190, L200.3001 #### [facility] - [facility] [address] [place] [address] URINALYSISon 05-08-2022 Bilirubin Ql (U) Negative Normal NEGATIVE [facility] Comment on above: Order Comment: Urine Specimen Source+ CLEAN CATCH Performed By: #### L 200.3190, L200.3001 #### [facility] - LABORATORY [address] [place] [address] 72988 Color (U) YELLOW Normal YELLOW [facility] Comment on above: Order Comment: Urine Specimen Source+ CLEAN CATCH Performed By: #### L 200.3190, L200.3001 #### [facility] - LABORATORY [address] [place] [address] 85104 Glucose Ql (U) Negative Normal NEGATIVE [facility] Comment on above: Order Comment: Urine Specimen Source+ CLEAN CATCH Performed By: #### L 200.3190, L200.3001 #### [facility] - LABORATORY [address] [place] [address] 59645 Hemoglobin Ql (U) Negative Normal NEGATIVE [facility] Comment on above: Order Comment: Urine Specimen Source+ CLEAN CATCH Performed By: #### L 200.3190, L200.3001 #### [facility] - LAB[facility]ATORY [address] [place] [address] 64509 Leukocyte esterase Test strip Ql (U) TRACE Normal NEGATIVE [facility] Comment on above: Order Comment: Urine Specimen Source+ CLEAN CATCH Performed By: #### L 200.3190, L200.3001 #### [facility] - LAB[facility]ATORY [address] [place] [address] 55784 Nitrite Ql (U) Negative Normal NEGATIVE [facility] Comment on above: Order Comment: Urine Specimen Source+ CLEAN CATCH Performed By: #### L 200.3190, L200.3001 #### [facility] - LAB[facility]AT[facility] [address] [place] [address] 44665 pH (U) 6.0 [pH] Normal 5.0-8.0 [facility] Comment on above: Order Comment: Urine Specimen Source+ CLEAN CATCH Performed By: #### L 200.3190, L200.3001 #### [facility] - [facility]AT[facility] [address] [place] [address] 42442 Protein Ql (U) Negative Normal NEGATIVE [facility] Comment on above: Order Comment: Urine Specimen Source+ CLEAN CATCH Performed By: #### L 200.3190, L200.3001 #### [facility] - LABORATORY [address] [place] [address] URINE APPEARANC CLEAR Normal CLEAR [facility] Comment on above: Order Comment: Urine Specimen Source+ CLEAN CATCH Performed By: #### L 200.3190, L200.3001 #### ML - LABORATORY [address] [place], [place] [address] [place] [address] URINE KETONE Negative Normal NEGATIVE [facility] Comment on above: Order Comment: Urine Specimen Source+ CLEAN CATCH Performed By: #### L 200.3190, L200.3001 #### [facility] - LABORATORY [address] [place] [address] 86687 URINE SPECIFIC <=1.005 Normal 1.001-1.035 [facility] Comment on above: Order Comment: Urine Specimen Source+ CLEAN CATCH Performed By: #### L 200.3190, L200.3001 #### [facility] - LABORATORY [address] [place] [address] 06242 URINE UROBILINO 0.2 EU/DL Normal 0.2-1.0 [facility] Comment on above: Order Comment: Urine Specimen Source+ CLEAN CATCH Performed By: #### L 200.3190, L200.3001 #### [facility] - LAB[facility]ATORY [address] [place] [address] 67616 URINE MICROSCOPon 05-08-2022 Mucus Ql (Urine sed) TR Normal NEGATIVE [facility] Comment on above: Order Comment: Urine Specimen Source+ CLEAN CATCH Performed By: #### L 200.3190, L200.3001 #### [facility] - LABORATORY [address] [place] [address] 29671 SQUAMOUS FEW Normal NEGATIVE [facility] Comment on above: Order Comment: Urine Specimen Source+ CLEAN CATCH Performed By: #### L 200.3190, L200.3001 #### [facility] - LAB[facility]ATORY [address] [place] [address] 87862 URINE BACTERIA TR Normal NEGATIVE [facility] Comment on above: Order Comment: Urine Specimen Source+ CLEAN CATCH Performed By: #### L 200.3190, L200.3001 #### [facility] - LABORATORY [address] [place] [address] 72858 URINE RBC 1-3 Normal 0-2 [facility] Comment on above: Order Comment: Urine Specimen Source+ CLEAN CATCH Performed By: #### L 200.3190, L200.3001 #### [facility] - LABORATORY [address] [place] [address] 54131 URINE WBC 6-10 Normal 0-5 [facility] Comment on above: Order Comment: Urine Specimen Source+ CLEAN CATCH Performed By: #### L 200.3190, L200.3001 #### [facility] - LABORATORY [address] [place] [address] 90980 BMPon 05-04-2022 Anion gap [Moles/Vol] 15.1 mmol/L Normal 15-22 [facility] Comment on above: Performed By: #### L 200.0010 #### ML [facility] [address] [place] [address] 30892 Calcium [Mass/Vol] 9.3 mg/dL Normal 8.8-10.2 [facility] Comment on above: Performed By: #### L 200.0010 #### ML [facility] [address] [place] [address] 25995 Chloride [Moles/Vol] 101 mmol/L Normal 98-107 [facility] Comment on above: Performed By: #### L 200.0010 #### [facility] [address] [place] [address] 22823 CO2 [Moles/Vol] 23 mmol/L Normal 22-29 [facility] Comment on above: Performed By: #### L 200.0010 #### [facility] - LABORATORY [address] [place] [address] 52351 Creatinine [Mass/Vol] 1.36 mg/dL High 0.50-0.90 [facility] Comment on above: Performed By: #### L 200.0010 #### [facility] [address] [place] [address] 26089 eGFR if AFR ELOISA 47 Normal [facility] Comment on above: Result Comment: [...] #### L 200.0010 #### [facility] - LABORATORY [address] [place] [address] 46088 eGFR nonAFR Eloisa 38 Normal [facility] Comment on above: Performed By: #### L 200.0010 #### [facility] [address] [place] [address] 76341 Glucose [Mass/Vol] 96 mg/dL Normal 82-115 [facility] Comment on above: Performed By: #### L 200.0010 #### ML [facility] [address] [place] [address] 98300 Potassium [Moles/Vol] 4.1 mmol/L Normal 3.5-5.0 [facility] Comment on above: Performed By: #### L 200.0010 #### [facility] [address] [place] [address] 16845 Sodium [Moles/Vol] 135 mmol/L Normal 135-145 [facility] Comment on above: Performed By: #### L 200.0010 #### ML [facility] [address] [place] [address] 50325 Urea nitrogen [Mass/Vol] 8 mg/dL Normal 8-23 [facility] Comment on above: Performed By: #### L 200.0010 #### [facility] [address] [place] [address] 67269 CBCon 05-04-2022 BASO# 0.10 x10(3) Normal 0.00-0.10 [facility] Comment on above: Performed By: #### L 200.0010 #### ML [facility] [address] [place] [address] 47302 Basophils/100 WBC (Bld) 1.2 % High 0.0-1.0 [facility] Comment on above: Performed By: #### L 200.0010 #### ML [facility] [address] [place] [address] 20173 EOS# 0.10 x10(3) Normal 0.00-0.54 [facility] Comment on above: Performed By: #### L 200.0010 #### ML [facility] [address] [place] [address] 89150 Eosinophils/100 WBC (Bld) 0.8 % Normal 0.5-4.9 [facility] Comment on above: Performed By: #### L 200.0010 #### ML [facility] [address] [place] [address] 35579 Erythrocyte distribution width (RBC) [Ratio] 17.8 % High 12.5-15.7 [facility] Comment on above: Performed By: #### L 200.0010 #### ML [facility] [address] [place] [address] 64581 Hematocrit (Bld) [Volume fraction] 36.8 % Normal 36.0-48.0 [facility] Comment on above: Performed By: #### L 200.0010 #### ML [facility] [address] [place] [address] 24855 Hemoglobin (Bld) [Mass/Vol] 12.0 g/dL Normal 12.0-16.0 [facility] Comment on above: Performed By: #### L 200.0010 #### ML [facility] [address] [place] [address] 58977 LYMPH# 3.70 x10(3) High 1.00-3.50 [facility] Comment on above: Performed By: #### L 200.0010 #### ML [facility] [address] [place] [address] 56061 Lymphocytes/100 WBC (Bld) 38.8 % Normal 16.0-48.0 [facility] Comment on above: Performed By: #### L 200.0010 #### ML [facility] [address] [place] [address] 24291 MCH (RBC) [Entitic mass] 27.5 pg Low 28.5-32.9 [facility] Comment on above: Performed By: #### L 200.0010 #### [facility] [address] [place] [address] 31581 MCHC (RBC) [Mass/Vol] 32.5 g/dL Low 33.0-36.0 [facility] Comment on above: Performed By: #### L 200.0010 #### ML [facility] [address] [place] [address] 80507 MCV (RBC) [Entitic vol] 84.6 fL Normal 80.0-99.0 [facility] Comment on above: Performed By: #### L 200.0010 #### [facility] [address] [place] [address] 18091 MONO# 0.90 x10(3) High 0.30-0.80 [facility] Comment on above: Performed By: #### L 200.0010 #### ML [facility] [address] [place] [address] 96903 Monocytes/100 WBC (Bld) 9.0 % Normal 4.3-11.2 [facility] Comment on above: Performed By: #### L 200.0010 #### [facility] [address] [place] [address] 51716 NEUT# 4.80 x10(3) Normal 1.40-6.50 [facility] Comment on above: Performed By: #### L 200.0010 #### ML [facility] [address] [place] [address] 90692 Neutrophils/100 WBC (Bld) 50.2 % Normal 45.0-73.0 [facility] Comment on above: Performed By: #### L 200.0010 #### [facility] [address] [place] [address] 66155 Platelet mean volume (Bld) [Entitic vol] 8.3 fL Normal 7.5-9.5 [facility] Comment on above: Performed By: #### L 200.0010 #### ML [facility] [address] [place] [address] 67969 PLT 390 X10(3) Normal 150-450 [facility] Comment on above: Performed By: #### L 200.0010 #### [facility] [address] [place] [address] 69730 RBC 4.36 x10(6) Normal 3.30-5.00 [facility] Comment on above: Performed By: #### L 200.0010 #### [facility] [address] [place] [address] 18121 WBC 9.6 x10(3) Normal 4.5-10.0 [facility] Comment on above: Performed By: #### L 200.0010 #### [facility] [address] [place] [address] ABD/PEL W CONTRASTon 04-17 CT ABD/PEL W CONTRAST [address] [address] Name: ADINA ESCOBAR I Phys: ABEL JOSEPH M.D. : [birth year] Age: 71 Sex: F Acct: [id number] Loc: ED Exam Date: 05/03/22 Status: [facility] Radiology No.: Unit Number: [id number] Exam # Type/Exam [id number] CT / CT ABD/PEL W CONTRAST EXAMINATION: [...] By: EDMUNDO DIAZ M.D. Tests performed at: [address] [address] Normal [facility] EKGon 05-04-2022 Atrial Rate 74 BPM [facility] Calculated P [place] 71 degrees [facility] Calculated R [place] 17 degrees [facility] Calculated T [place] 43 degrees [facility] P-R Interval 160 ms [facility] QRS Duration 72 ms [facility] QT Interval 418 ms [facility] QTC Calculation ([place]) 463 ms [facility] Ventricular Rate 74 BPM [facility] ELECTROCARDIOGRAMon 05-04-20 [place] [address] [facility]FORMATION [facility]NAGEMENT ELECTROCARDIOGRAM REPORT Patient: ADINA ESCOBAR I Ordering: ABEL JOSEPH M.D. [id number] [age] F Exam Date: 05/03/22 Report #: [id number] Status: REG ER ED Test Reason : [...] was found Confirmed by ABEL JOSEPH MD ([id number]) on 05/04/2022 2:09:15 AM Referred By: ABEL JOSEPH Confirmed By:ABEL JOSEPH MD Signed in [facility] 05/04/22 0211 ABEL JOSEPH M.D. cc: << Signature on File>> Reported By: ABEL JOSEPH M.D. Signed By: ABEL JOSEPH M.D. Tests performed at: [place] [address] [place], [place] [address] Normal [facility] EMERGENCY DEPARTMENT REPORTo n 05-04-2022 EMERGENCY [place] [address] [facility] INFORMATION MANAGEMENT EMERGENCY DEPARTMENT REPORT Patient: ADINA ESCOBAR I ABEL JOSEPH M.D. [id number] [age] F Status: DEP ER ED [...] care provider, Dr. Dhaliwal. Report#: Dict ID [id number] / Int ID [id number] 05/09/22 190 ABEL JOSEPH M.D. cc: ABEL JOSEPH M.D.; KENTRELL DHALIWAL II, M.D. << Signature on File>> Reported By: ABEL JOSEPH M.D. Signed By: ABEL JOSEPH M.D. Tests performed at: [place] [address] [place], [place] [address] Normal [facility] EMERGENCY [place] [address] [facility] INFORMATION [facility]NAGEMENT EMERGENCY DEPARTMENT REPORT Patient: ADINA ESCOBAR I ABEL JOSEPH M.D. [id number] [age] F Status: DEP ER ED Date of Service: 05/03/22 CHIEF [...] noted. DICTATION ENDS HERE Report#: Dict ID [id number] / Int ID [id number] 05/09/22 1906 ABEL JOSEPH M.D. cc: ABEL JOSEPH M.D.; KENTRELL DHALIWAL II, M.D. << Signature on File>> Reported By: ABEL JOSEPH M.D. Signed By: ABEL JOSEPH M.D. Tests performed at: [address] [address] Normal [facility] HEPATIC PANELon 05-04-2022 A:G RATIO 1.38 Normal 1.1-2.5 [facility] Comment on above: Performed By: #### L 200.0010 #### [facility] - [facility] [address] [place] [address] 83729 Albumin [Mass/Vol] 4.3 g/dL Normal 3.5-5.2 [facility] Comment on above: Performed By: #### L 200.0010 #### [facility] - LAB[facility] [address] [place] [address] 74704 ALK. PHOS 98 U/L Normal 35-105 [facility] Comment on above: Performed By: #### L 200.0010 #### [facility] - [facility] [address] [place] [address] 82763 ALT [Catalytic activity/Vol] 19 U/L Normal 5-33 [facility] Comment on above: Performed By: #### L 200.0010 #### [facility] - [facility] [address] [place] [address] 25551 AST [Catalytic activity/Vol] 27 U/L Normal 5-32 [facility] Comment on above: Performed By: #### L 200.0010 #### [facility] - LAB[facility]ATORY [address] [place] [address] 61190 Bilirubin [Mass/Vol] 0.2 mg/dL Normal 0.2-1.2 [facility] Comment on above: Performed By: #### L 200.0010 #### [facility] - LAB[facility]AT[facility] [address] [place] [address] 88149 DIRECT BILIRUBI <0.2 Normal 0.0-0.3 [facility] Comment on above: Performed By: #### L 200.0010 #### [facility] - LAB[facility]ORY [address] [place] [address] 83645 Globulin (S) [Mass/Vol] 3.1 g/dL Normal 1.5-4.5 [facility] Comment on above: Performed By: #### L 200.0010 #### [facility] - [facility] [address] [place] [address] 23147 Protein [Mass/Vol] 7.4 g/dL Normal 6.4-8.3 [facility] Comment on above: Performed By: #### L 200.0010 #### [facility] - [facility] [address] [place] [address] 41904 LACTIC ACIDon 05-04-2022 Lactate [Moles/Vol] 1.9 mmol/L Normal 0.5-2.0 [facility] Comment on above: Performed By: #### L 200.3001 #### [facility] - [facility] [address] [place] [address] 64348 LIPASEon 05-04-2022 Lipase [Catalytic activity/Vol] 26 U/L Normal 13-60 [facility] Comment on above: Performed By: #### L 200.3001 #### [facility] [address] [place] [address] 84932 TROPONIN Ton 05-04-2022 TROPONIN T <0.010 Normal 0-0.010 [facility] Comment on above: Performed By: #### L 200.3001 #### [facility] - [facility] [address] [place] [address] 25145 UA W/C&Son 05-04-2022 Bilirubin Ql (U) Negative Normal NEGATIVE [facility] Comment on above: Order Comment: Urine Specimen Source+ CLEAN CATCH Performed By: #### L 200.3190, L200.3001 #### [facility] [address] [place] [address] 51918 Color (U) YELLOW Normal YELLOW [facility] Comment on above: Order Comment: Urine Specimen Source+ CLEAN CATCH Performed By: #### L 200.3190, L200.3001 #### [facility] - [facility] [address] [place] [address] 68922 Glucose Ql (U) Negative Normal NEGATIVE [facility] Comment on above: Order Comment: Urine Specimen Source+ CLEAN CATCH Performed By: #### L 200.3190, L200.3001 #### [facility] - [facility] [address] [place] [address] 63952 Hemoglobin Ql (U) TRACE-INTACT Normal NEGATIVE [facility] Comment on above: Order Comment: Urine Specimen Source+ CLEAN CATCH Performed By: #### L 200.3190, L200.3001 #### [facility] - [facility] [address] [place] [address] 21749 Leukocyte esterase Test strip Ql (U) LARGE Normal NEGATIVE [facility] Comment on above: Order Comment: Urine Specimen Source+ CLEAN CATCH Performed By: #### L 200.3190, L200.3001 #### [facility] [address] [place] [address] 73722 Nitrite Ql (U) Positive Normal NEGATIVE [facility] Comment on above: Order Comment: Urine Specimen Source+ CLEAN CATCH Performed By: #### L 200.3190, L200.3001 #### [facility] [address] [place] [address] 90762 pH (U) 6.0 [pH] Normal 5.0-8.0 [facility] Comment on above: Order Comment: Urine Specimen Source+ CLEAN CATCH Performed By: #### L 200.3190, L200.3001 #### [facility] [address] [place] [address] 37078 Protein Ql (U) Negative Normal NEGATIVE [facility] Comment on above: Order Comment: Urine Specimen Source+ CLEAN CATCH Performed By: #### L 200.3190, L200.3001 #### [facility] [address] [place] [address] 05768 URINE APPEARANC SL CLOUDY Normal CLEAR [facility] Comment on above: Order Comment: Urine Specimen Source+ CLEAN CATCH Performed By: #### L 200.3190, L200.3001 #### [facility] [address] [place] [address] 23858 URINE KETONE Negative Normal NEGATIVE [facility] Comment on above: Order Comment: Urine Specimen Source+ CLEAN CATCH Performed By: #### L 200.3190, L200.3001 #### [facility] [address] [place] [address] 30093 URINE SPECIFIC <=1.005 Normal 1.001-1.035 [facility] Comment on above: Order Comment: Urine Specimen Source+ CLEAN CATCH Performed By: #### L 200.3190, L200.3001 #### [facility] [address] [place] [address] 33480 URINE UROBILINO 0.2 EU/DL Normal 0.2-1.0 [facility] Comment on above: Order Comment: Urine Specimen Source+ CLEAN CATCH Performed By: #### L 200.3190, L200.3001 #### [facility] [address] [place] [address] 04357 URINE MICROSCOPon 05-04-2022 Mucus Ql (Urine sed) TR Normal NEGATIVE [facility] Comment on above: Order Comment: Urine Specimen Source+ CLEAN CATCH Performed By: #### L 200.3190, L200.3001 #### ML - LABORATORY [address] [place] [address] 72606 SQUAMOUS FEW Normal NEGATIVE [facility] Comment on above: Order Comment: Urine Specimen Source+ CLEAN CATCH Performed By: #### L 200.3190, L200.3001 #### [facility] [address] [place] [address] URINE BACTERIA 4+ Normal NEGATIVE [facility] Comment on above: Order Comment: Urine Specimen Source+ CLEAN CATCH Performed By: #### L 200.3190, L200.3001 #### [facility] [address] [place] [address] 05027 URINE RBC 1-3 Normal 0-2 [facility] Comment on above: Order Comment: Urine Specimen Source+ CLEAN CATCH Performed By: #### L 200.3190, L200.3001 #### [facility] [address] [place] [address] 04076 URINE WBC 40-50 Normal 0-5 [facility] Comment on above: Order Comment: Urine Specimen Source+ CLEAN CATCH Performed By: #### L 200.3190, L200.3001 #### [facility] [address] [place] [address] 77686 Urinalysis complete panel (U )on 05-04-2022 Appearance (U) SL CLOUDY CLEAR [facility] Bacteria, Urine 4+ NEGATIVE [facility] Bilirubin, Urine Negative NEGATIVE [facility] Blood, Urine TRACE-INTACT NEGATIVE [facility] Color (U) YELLOW YELLOW [facility] Glucose Ql (U) Negative NEGATIVE MG/DL [facility] Ketones Ql (U) Negative NEGATIVE MG/DL [facility] Leukocytes LARGE NEGATIVE [facility] Nitrites Urine Positive NEGATIVE [facility] pH (U) 6.0 [pH] 5.0 - 8.0 [facility] Protein.monoclonal (U) [Mass/Vol] Negative NEGATIVE MG/DL [facility] RBC, Urine 1-3 0 - 2 [facility] Specific [place], Ur <=1.005 1.001 - 1.035 [facility] Squamous Epithelial Cells FEW NEGATIVE [facility] Ur Mucous TR NEGATIVE [facility] Urobilinogen, Urine 0.2 EU/DL 0.2 - 1. 0 EU/DL [facility] WBC, Urine 40-50 0 - 5 [facility] Basic metabolic 2000 panelon 05-03-2022 Anion gap [Moles/Vol] 15.1 mmol/L 15 - 2 2 mmol/L [facility] Calcium [Mass/Vol] 9.3 mg/dL 8.8 - 10. 2 mg/dL [facility] Chloride [Moles/Vol] 101 mmol/L 98 - 10 7 mmol/L [facility] CO2 [Moles/Vol] 23 mmol/L 22 - 29 mmol/L [facility] Creatinine [Mass/Vol] 1.36 mg/dL High 0.50 - 0.90 mg/dL [facility] eGFR-All Other Races 38 [facility] GFR/1.73 sq M.predicted among blacks MDRD (S/P/Bld) [Vol rate/Area] 47 mL/min/{1.73_m2} [facility] Glucose [Mass/Vol] 96 mg/dL 82 - 115 mg/dL [facility] Potassium [Moles/Vol] 4.1 mmol/L 3.5 - 5.0 mmol/L [facility] Sodium [Moles/Vol] 135 mmol/L 135 - 145 mmol/L [facility] Urea nitrogen [Mass/Vol] 8 mg/dL 8 - 23 mg/dL [facility] CBC W Auto Differential pane l (Bld)on 05-03-2022 BASO ABS 0.10 x10(3) 0.00 - 0.10 x10(3) [facility] Basophils/100 WBC (Bld) 1.2 % High 0.0 - 1.0 % [facility] EOS ABS 0.10 x10(3) 0.00 - 0.54 x10(3) [facility] Eosinophils/100 WBC (Bld) 0.8 % 0.5 - 4.9 % [facility] Erythrocyte distribution width (RBC) [Ratio] 17.8 % High 12.5 - 15.7 % [facility] Hematocrit (Bld) [Volume fraction] 36.8 % 36.0 - 48.0 % [facility] Hemoglobin (Bld) [Mass/Vol] 12.0 g/dL 12.0 - 16.0 g/dL [facility] LYMPH ABS 3.70 x10(3) High 1.00 - 3.50 x10(3) [facility] Lymphocytes/100 WBC (Bld) 38.8 % 16.0 - 48.0 % [facility] MCH (RBC) [Entitic mass] 27.5 pg Low 28.5 - 32.9 pg [facility] MCHC (RBC) [Mass/Vol] 32.5 g/dL Low 33.0 - 36.0 g/dL [facility] MCV (RBC) [Entitic vol] 84.6 fL 80.0 - 99.0 fl [facility] MONO ABS 0.90 x10(3) High 0.30 - 0.80 x10(3) [facility] Monocytes/100 WBC (Bld) 9.0 % 4.3 - 11.2 % [facility] Neutrophil Ab 4.80 x10(3) 1.40 - 6.50 x10(3) [facility] Neutrophils/100 WBC (Bld) 50.2 % 45.0 - 73.0 % [facility] Platelet Count 390 X10(3) 150 - 450 X10(3) [facility] Platelet mean volume (Bld) [Entitic vol] 8.3 fL 7.5 - 9.5 fl [facility] RBC 4.36 x10(6) 3.30 - 5.00 x10(6) [facility] WBC 9.6 x10(3) 4.5 - 10.0 x10(3) [facility] CT ABD/PEL W IVCONon 022 [facility] Hepatic function 2000 panelo n 05-03-2022 Albumin [Mass/Vol] 4.3 g/dL 3.5 - 5.2 g/dL [facility] Albumin/Globulin [Mass ratio] 1.38 {ratio} 1.1 - 2.5 [facility] ALP [Catalytic activity/Vol] 98 U/L 35 - 105 U/L [facility] ALT [Catalytic activity/Vol] 19 U/L 5 - 33 U/L [facility] AST [Catalytic activity/Vol] 27 U/L 5 - 32 U/L [facility] Bilirubin [Mass/Vol] 0.2 mg/dL 0.2 - 1 .2 mg/dL [facility] Direct Bilirubin <0.2 0.0 - 0.3 mg/dL [facility] Globulin (S) [Mass/Vol] 3.1 g/dL 1.5 - 4.5 g/dL [facility] Protein [Mass/Vol] 7.4 g/dL 6.4 - 8.3 g/dL [facility] LIPASE BLDon 05-03-2022 Lipase [Catalytic activity/Vol] 26 U/L 13 - 60 U/L [facility] Lactate (Bld) [Moles/Vol]on 05-03-2022 Lactic Acid Plasma 1.9 mmol/L 0.5 - 2.0 mmol/L [facility] TROPONIN Ton 05-03-2022 Troponin T <0.010 0 - 0.010 ng/mL [facility] Urine Cultureon 05-03-2022 Bacteria identified Cx Nom [...] 20 Susceptible SOURCE: URINE Test Performed By: [facility] [address] [place] [address] Signals Intelligence Analyst: Sven Wasserman III, M.D. See Below Normal [facility] BMPon 04-21-2022 Anion gap [Moles/Vol] 14.9 mmol/L Low 15-22 [facility] Comment on above: Performed By: #### L 200.0010 #### ML [facility] [address] [place] [address] 97819 Calcium [Mass/Vol] 9.3 mg/dL Normal 8.8-10.2 [facility] Comment on above: Performed By: #### L 200.0010 #### ML [facility] [address] [place] [address] 31438 Chloride [Moles/Vol] 105 mmol/L Normal 98-107 [facility] Comment on above: Performed By: #### L 200.0010 #### ML [facility] [address] [place] [address] 32850 CO2 [Moles/Vol] 24 mmol/L Normal 22-29 [facility] Comment on above: Performed By: #### L 200.0010 #### [facility] [address] [place] [address] 68640 Creatinine [Mass/Vol] 1.33 mg/dL High 0.50-0.90 [facility] Comment on above: Performed By: #### L 200.0010 #### [facility] [address] [place] [address] 30064 eGFR if AFR ELOISA 48 [facility] Comment on above: Result Comment: eGFR [...] Performed By: #### L 200.0010 #### ML [facility] [address] [place] [address] 02984 eGFR nonAFR Eloisa 39 [facility] Comment on above: Performed By: #### L 200.0010 #### [facility] [address] [place] [address] 87841 Glucose [Mass/Vol] 99 mg/dL Normal 82-115 [facility] Comment on above: Performed By: #### L 200.0010 #### ML [facility] [address] [place] [address] 81404 Potassium [Moles/Vol] 3.9 mmol/L Normal 3.5-5.0 [facility] Comment on above: Performed By: #### L 200.0010 #### [facility] [address] [place] [address] 82404 Sodium [Moles/Vol] 140 mmol/L Normal 135-145 [facility] Comment on above: Performed By: #### L 200.0010 #### ML - LABORATORY [address] [place] [address] 62695 Urea nitrogen [Mass/Vol] 8 mg/dL Normal 8-23 [facility] Comment on above: Performed By: #### L 200.0010 #### ML - LABORATORY [address] [place] [address] 77016 Basic metabolic 2000 panelon 04-21-2022 Anion gap [Moles/Vol] 14.9 mmol/L Low 15 - 2 2 mmol/L [facility] Calcium [Mass/Vol] 9.3 mg/dL 8.8 - 10. 2 mg/dL [facility] Chloride [Moles/Vol] 105 mmol/L 98 - 10 7 mmol/L [facility] CO2 [Moles/Vol] 24 mmol/L 22 - 29 mmol/L [facility] Creatinine [Mass/Vol] 1.33 mg/dL High 0.50 - 0.90 mg/dL [facility] eGFR-All Other Races 39 [facility] GFR/1.73 sq M.predicted among blacks MDRD (S/P/Bld) [Vol rate/Area] 48 mL/min/{1.73_m2} [facility] Glucose [Mass/Vol] 99 mg/dL 82 - 115 mg/dL [facility] Potassium [Moles/Vol] 3.9 mmol/L 3.5 - 5.0 mmol/L [facility] Sodium [Moles/Vol] 140 mmol/L 135 - 145 mmol/L [facility] Urea nitrogen [Mass/Vol] 8 mg/dL 8 - 23 mg/dL [facility] CBCon 04-21-2022 BASO# 0.10 x10(3) Normal 0.00-0.10 [facility] Comment on above: Performed By: #### L 200.0010 #### ML - LABORATORY [address] [place] [address] 45686 Basophils/100 WBC (Bld) 1.0 % Normal 0.0-1.0 [facility] Comment on above: Performed By: #### L 200.0010 #### ML - LABORATORY [address] [place] [address] 78183 EOS# 0.20 x10(3) Normal 0.00-0.54 [facility] Comment on above: Performed By: #### L 200.0010 #### ML [facility] [address] [place] [address] 60104 Eosinophils/100 WBC (Bld) 1.9 % Normal 0.5-4.9 [facility] Comment on above: Performed By: #### L 200.0010 #### ML [facility] [address] [place] [address] 71921 Erythrocyte distribution width (RBC) [Ratio] 18.6 % High 12.5-15.7 [facility] Comment on above: Performed By: #### L 200.0010 #### ML [facility] [address] [place] [address] 35359 Hematocrit (Bld) [Volume fraction] 34.3 % Low 36.0-48.0 [facility] Comment on above: Performed By: #### L 200.0010 #### ML [facility] [address] [place] [address] 02999 Hemoglobin (Bld) [Mass/Vol] 11.2 g/dL Low 12.0-16.0 [facility] Comment on above: Performed By: #### L 200.0010 #### [facility] [address] [place] [address] 01617 LYMPH# 3.00 x10(3) Normal 1.00-3.50 [facility] Comment on above: Performed By: #### L 200.0010 #### ML [facility] [address] [place] [address] 47509 Lymphocytes/100 WBC (Bld) 36.6 % Normal 16.0-48.0 [facility] Comment on above: Performed By: #### L 200.0010 #### ML [facility] [address] [place] [address] 11783 MCH (RBC) [Entitic mass] 27.9 pg Low 28.5-32.9 [facility] Comment on above: Performed By: #### L 200.0010 #### ML [facility] [address] [place] [address] 91430 MCHC (RBC) [Mass/Vol] 32.8 g/dL Low 33.0-36.0 [facility] Comment on above: Performed By: #### L 200.0010 #### [facility] [address] [place] [address] 99821 MCV (RBC) [Entitic vol] 85.3 fL Normal 80.0-99.0 [facility] Comment on above: Performed By: #### L 200.0010 #### ML [facility] [address] [place] [address] 53609 MONO# 0.80 x10(3) Normal 0.30-0.80 [facility] Comment on above: Performed By: #### L 200.0010 #### ML [facility] [address] [place] [address] 69596 Monocytes/100 WBC (Bld) 9.3 % Normal 4.3-11.2 [facility] Comment on above: Performed By: #### L 200.0010 #### [facility] [address] [place] [address] 38518 NEUT# 4.20 x10(3) Normal 1.40-6.50 [facility] Comment on above: Performed By: #### L 200.0010 #### [facility] [address] [place] [address] 87449 Neutrophils/100 WBC (Bld) 51.2 % Normal 45.0-73.0 [facility] Comment on above: Performed By: #### L 200.0010 #### ML [facility] [address] [place] [address] 92785 Platelet mean volume (Bld) [Entitic vol] 9.0 fL Normal 7.5-9.5 [facility] Comment on above: Performed By: #### L 200.0010 #### [facility] [address] [place] [address] 63041 PLT 320 X10(3) Normal 150-450 [facility] Comment on above: Performed By: #### L 200.0010 #### ML [facility] [address] [place] [address] 77247 RBC 4.02 x10(6) Normal 3.30-5.00 [facility] Comment on above: Performed By: #### L 200.0010 #### ML - LABORATORY [address] [place] [address] WBC 8.1 x10(3) Normal 4.5-10.0 [facility] Comment on above: Performed By: #### L 200.0010 #### ML - LABORATORY [address] [place] [address] CBC W Auto Differential pane l (Bld)on 04-21-2022 BASO ABS 0.10 x10(3) 0.00 - 0.10 x10(3) [facility] Basophils/100 WBC (Bld) 1.0 % 0.0 - 1.0 % [facility] EOS ABS 0.20 x10(3) 0.00 - 0.54 x10(3) [facility] Eosinophils/100 WBC (Bld) 1.9 % 0.5 - 4.9 % [facility] Erythrocyte distribution width (RBC) [Ratio] 18.6 % High 12.5 - 15.7 % [facility] Hematocrit (Bld) [Volume fraction] 34.3 % Low 36.0 - 48.0 % [facility] Hemoglobin (Bld) [Mass/Vol] 11.2 g/dL Low 12.0 - 16.0 g/dL [facility] LYMPH ABS 3.00 x10(3) 1.00 - 3.50 x10(3) [facility] Lymphocytes/100 WBC (Bld) 36.6 % 16.0 - 48.0 % [facility] MCH (RBC) [Entitic mass] 27.9 pg Low 28.5 - 32.9 pg [facility] MCHC (RBC) [Mass/Vol] 32.8 g/dL Low 33.0 - 36.0 g/dL [facility] MCV (RBC) [Entitic vol] 85.3 fL 80.0 - 99.0 fl [facility] MONO ABS 0.80 x10(3) 0.30 - 0.80 x10(3) [facility] Monocytes/100 WBC (Bld) 9.3 % 4.3 - 11.2 % [facility] Neutrophil Ab 4.20 x10(3) 1.40 - 6.50 x10(3) [facility] Neutrophils/100 WBC (Bld) 51.2 % 45.0 - 73.0 % [facility] Platelet Count 320 X10(3) 150 - 450 X10(3) [facility] Platelet mean volume (Bld) [Entitic vol] 9.0 fL 7.5 - 9.5 fl [facility] RBC 4.02 x10(6) 3.30 - 5.00 x10(6) [facility] WBC 8.1 x10(3) 4.5 - 10.0 x10(3) [facility] CT ABD/PEL W CONTRASTon 08-0 CT ABD/PEL W CONTRAST [address] [address] Name: ADINA ESCOBAR I Phys: STUART TAYLOR D.O. : [birth year] Age: 71 Sex: F Acct: [id number] Loc: ED Exam Date: 04/21/22 Status: [facility] Radiology No.: Unit Number: [id number] Exam # Type/Exam [id number] CT / CT ABD/PEL W CONTRAST EXAMINATION: [...] By: FLORA BLEDSOE M.D. Tests performed at: [address] [address] Normal [facility] CT ABD/PEL W IVCONon 022 [facility] EMERGENCY DEPARTMENT REPORTo n 04-21-2022 EMERGENCY [place] [address] HEALTH INFORMATION MANAGEMENT EMERGENCY DEPARTMENT REPORT Patient: ADINA ESCOBAR STUART BLAIR D.O. [id number] [age] F Status: DEP ER ED [...] home, some Zofran for nausea. I did cosmetic counselor her if she has worsening symptoms, [...] get a stool culture. Report#: Dict ID [id number] / Int ID [id number] 04/21/22 1705 CURRENT,STUART Armenta D.O. cc: STUART TAYLOR D.O.; KENTRELL DHALIWAL II, M.D. << Signature on File>> Reported By: STUART TAYLOR D.O. Signed By: STUART TAYLOR D.O. Tests performed at: [place] [address] Normal [facility] HEPATIC PANELon 04-21-2022 A:G RATIO 1.33 Normal 1.1-2.5 [facility] Comment on above: Performed By: #### L 200.0010 #### ML - LABORATORY [address] [place] [address] 31143 Albumin [Mass/Vol] 4.0 g/dL Normal 3.5-5.2 [facility] Comment on above: Performed By: #### L 200.0010 #### ML - LABORATORY [address] [place] [address] 35484 ALK. PHOS 111 U/L High 35-105 [facility] Comment on above: Performed By: #### L 200.0010 #### ML - LABORATORY [address] [place] [address] 10351 ALT [Catalytic activity/Vol] 15 U/L Normal 5-33 [facility] Comment on above: Performed By: #### L 200.0010 #### ML - LABORATORY [address] [place] [address] 07140 AST [Catalytic activity/Vol] 22 U/L Normal 5-32 [facility] Comment on above: Performed By: #### L 200.0010 #### ML - LABORATORY [address] [place] [address] 53031 Bilirubin [Mass/Vol] 0.3 mg/dL Normal 0.2-1.2 [facility] Comment on above: Performed By: #### L 200.0010 #### ML - LABORATORY [address] [place] [address] 01598 DIRECT BILIRUBI <0.2 Normal 0.0-0.3 [facility] Comment on above: Performed By: #### L 200.0010 #### ML - LABORATORY [address] [place] [address] 16787 Globulin (S) [Mass/Vol] 3.0 g/dL Normal 1.5-4.5 [facility] Comment on above: Performed By: #### L 200.0010 #### ML - LABORATORY [address] [place] [address] 84720 Protein [Mass/Vol] 7.0 g/dL Normal 6.4-8.3 [facility] Comment on above: Performed By: #### L 200.0010 #### ML - LABORATORY [address] [place] [address] 93331 Hepatic function 2000 panelo n 04-21-2022 Albumin [Mass/Vol] 4.0 g/dL 3.5 - 5.2 g/dL [facility] Albumin/Globulin [Mass ratio] 1.33 {ratio} 1.1 - 2.5 [facility] ALP [Catalytic activity/Vol] 111 U/L High 35 - 105 U/L [facility] ALT [Catalytic activity/Vol] 15 U/L 5 - 33 U/L [facility] AST [Catalytic activity/Vol] 22 U/L 5 - 32 U/L [facility] Bilirubin [Mass/Vol] 0.3 mg/dL 0.2 - 1 .2 mg/dL [facility] Direct Bilirubin <0.2 0.0 - 0.3 mg/dL [facility] Globulin (S) [Mass/Vol] 3.0 g/dL 1.5 - 4.5 g/dL [facility] Protein [Mass/Vol] 7.0 g/dL 6.4 - 8.3 g/dL [facility] LIPASEon 04-21-2022 Lipase [Catalytic activity/Vol] 23 U/L Normal 13-60 [facility] Comment on above: Performed By: #### L 200.0010 #### ML - LABORATORY [address] [place] [address] 52058 LIPASE BLDon 04-21-2022 Lipase [Catalytic activity/Vol] 23 U/L 13 - 60 U/L [facility] RAPID COVIDon 04-21-2022 SARS-CoV-2 (COVID-19) RNA RENATA+probe Ql (Unsp spec) Negative Normal NEGATIVE [facility] Comment on above: Result Comment: THIS TEST HAS BEEN AUTHORIZED BY FDA UNDER AN EMERGENCY USE AUTHORIZATION (EUA). NEGATIVE: NEGATIVE FOR COVID19 (SARS-CoV-2) BY PCR POSITIVE: POSITIVE FOR COVID19 (SARS-CoV-2) BY PCR PRESUMPTIVE POSITIVE: POSITIVE BY SINGLE WOO SARS-CoV TARGET. SARS-CoV-1 CANNOT BE EXCLUDED, BUT IS NOT CURRENTLY CIRCULATING IN [place]. Performed By: #### L 200.0010 #### ML - [address] [address] SARS-CoV-2 (COVID-19) RNA NA A+probe Ql (Resp)on 04-21-2022 SARS-CoV-2 (COVID-19) RNA RENATA+probe Ql (Unsp spec) Negative NEGATIVE [facility] UA W/C&Son 04-21-2022 Bilirubin Ql (U) Negative Normal NEGATIVE [facility] Comment on above: Order Comment: Urine Specimen Source+ CLEAN CATCH Performed By: #### L 200.3001 #### ML [facility] [address] [place] [address] 65777 Color (U) YELLOW Normal YELLOW [facility] Comment on above: Order Comment: Urine Specimen Source+ CLEAN CATCH Performed By: #### L 200.3001 #### ML [address] [address] Glucose Ql (U) Negative Normal NEGATIVE [facility] Comment on above: Order Comment: Urine Specimen Source+ CLEAN CATCH Performed By: #### L 200.3001 #### ML [address] [address] Hemoglobin Ql (U) Negative Normal NEGATIVE [facility] Comment on above: Order Comment: Urine Specimen Source+ CLEAN CATCH Performed By: #### L 200.3001 #### ML [address] [address] Leukocyte esterase Test strip Ql (U) Negative Normal NEGATIVE [facility] Comment on above: Order Comment: Urine Specimen Source+ CLEAN CATCH Performed By: #### L 200.3001 #### ML [facility] [address] [place] [address] 72014 Nitrite Ql (U) Negative Normal NEGATIVE [facility] Comment on above: Order Comment: Urine Specimen Source+ CLEAN CATCH Performed By: #### L 200.3001 #### ML - LABORATORY [address] [place] [address] 29058 pH (U) 6.0 [pH] Normal 5.0-8.0 [facility] Comment on above: Order Comment: Urine Specimen Source+ CLEAN CATCH Performed By: #### L 200.3001 #### ML - LABORATORY [address] [place] [address] 68005 Protein Ql (U) Negative Normal NEGATIVE [facility] Comment on above: Order Comment: Urine Specimen Source+ CLEAN CATCH Performed By: #### L 200.3001 #### ML - LABORATORY [address] [place] [address] 44951 URINE APPEARANC CLEAR Normal CLEAR [facility] Comment on above: Order Comment: Urine Specimen Source+ CLEAN CATCH Performed By: #### L 200.3001 #### ML - LABORATORY [address] [place] [address] 01044 URINE KETONE Negative Normal NEGATIVE [facility] Comment on above: Order Comment: Urine Specimen Source+ CLEAN CATCH Performed By: #### L 200.3001 #### ML - LABORATORY [address] [place] [address] 63063 URINE SPECIFIC 1.010 Normal 1.001-1.035 [facility] Comment on above: Order Comment: Urine Specimen Source+ CLEAN CATCH Performed By: #### L 200.3001 #### ML - LABORATORY [address] [place] [address] 91194 URINE UROBILINO 0.2 EU/DL Normal 0.2-1.0 [facility] Comment on above: Order Comment: Urine Specimen Source+ CLEAN CATCH Performed By: #### L 200.3001 #### ML - LABORATORY [address] [place] [address] 83165 Urinalysis complete panel (U )on 04-21-2022 Appearance (U) CLEAR CLEAR [facility] Bilirubin, Urine Negative NEGATIVE [facility] Blood, Urine Negative NEGATIVE [facility] Color (U) YELLOW YELLOW [facility] Glucose Ql (U) Negative NEGATIVE MG/DL [facility] Ketones Ql (U) Negative NEGATIVE MG/DL [facility] Leukocytes Negative NEGATIVE [facility] Nitrites Urine Negative NEGATIVE [facility] pH (U) 6.0 [pH] 5.0 - 8.0 [facility] Protein.monoclonal (U) [Mass/Vol] Negative NEGATIVE MG/DL [facility] Specific [place], Ur 1.010 1.001 - 1.035 [facility] Urobilinogen, Urine 0.2 EU/DL 0.2 - 1. 0 EU/DL [facility] BMPon 04-19-2022 Anion gap [Moles/Vol] 20.2 mmol/L Normal 15-22 [facility] Comment on above: Performed By: #### L 200.3190, L200.3001 #### ML - LABORATORY [address] [place] [address] 26626 Calcium [Mass/Vol] 9.7 mg/dL Normal 8.8-10.2 [facility] Comment on above: Performed By: #### L 200.3190, L200.3001 #### ML - LABORATORY [address] [place] [address] 82877 Chloride [Moles/Vol] 104 mmol/L Normal 98-107 [facility] Comment on above: Performed By: #### L 200.3190, L200.3001 #### ML - LABORATORY [address] [place] [address] 22236 CO2 [Moles/Vol] 20 mmol/L Low 22-29 [facility] Comment on above: Performed By: #### L 200.3190, L200.3001 #### ML - LABORATORY [address] [place] [address] 46012 Creatinine [Mass/Vol] 1.35 mg/dL High 0.50-0.90 [facility] Comment on above: Performed By: #### L 200.3190, L200.3001 #### ML - LABORATORY [address] [place] [address] 75553 eGFR if AFR ELOISA 47 Normal [facility] Comment on above: Result Comment: [...] #### L 200.3190, L200.3001 #### - LABORATORY [address] [place] [address] 15308 eGFR nonAFR Eloisa 39 Normal [facility] Comment on above: Performed By: #### L 200.3190, L200.3001 #### [facility] [address] [place] [address] 72155 Glucose [Mass/Vol] 99 mg/dL Normal 82-115 [facility] Comment on above: Performed By: #### L 200.3190, L200.3001 #### - LABORATORY [address] [place] [address] 28462 Potassium [Moles/Vol] 4.2 mmol/L Normal 3.5-5.0 [facility] Comment on above: Performed By: #### L 200.3190, L200.3001 #### [facility] [address] [place] [address] 74203 Sodium [Moles/Vol] 140 mmol/L Normal 135-145 [facility] Comment on above: Performed By: #### L 200.3190, L200.3001 #### [facility] [address] [place] [address] 14223 Urea nitrogen [Mass/Vol] 10 mg/dL Normal 8-23 [facility] Comment on above: Performed By: #### L 200.3190, L200.3001 #### [facility] [address] [place] [address] 94770 Basic metabolic 2000 panelon 04-19-2022 Anion gap [Moles/Vol] 20.2 mmol/L 15 - 2 2 mmol/L [facility] Calcium [Mass/Vol] 9.7 mg/dL 8.8 - 10. 2 mg/dL [facility] Chloride [Moles/Vol] 104 mmol/L 98 - 10 7 mmol/L [facility] CO2 [Moles/Vol] 20 mmol/L Low 22 - 29 mmol/L [facility] Creatinine [Mass/Vol] 1.35 mg/dL High 0.50 - 0.90 mg/dL [facility] eGFR-All Other Races 39 [facility] GFR/1.73 sq M.predicted among blacks MDRD (S/P/Bld) [Vol rate/Area] 47 mL/min/{1.73_m2} [facility] Glucose [Mass/Vol] 99 mg/dL 82 - 115 mg/dL [facility] Potassium [Moles/Vol] 4.2 mmol/L 3.5 - 5.0 mmol/L [facility] Sodium [Moles/Vol] 140 mmol/L 135 - 145 mmol/L [facility] Urea nitrogen [Mass/Vol] 10 mg/dL 8 - 23 mg/dL [facility] CBCon 04-19-2022 BASO# 0.10 x10(3) Normal 0.00-0.10 [facility] Comment on above: Performed By: #### L 200.0010 #### [facility] [address] [place] [address] 02037 Basophils/100 WBC (Bld) 0.6 % Normal 0.0-1.0 [facility] Comment on above: Performed By: #### L 200.0010 #### ML [facility] [address] [place] [address] 23588 EOS# 0.00 x10(3) Normal 0.00-0.54 [facility] Comment on above: Performed By: #### L 200.0010 #### ML [facility] [address] [place] [address] 61550 Eosinophils/100 WBC (Bld) 0.5 % Normal 0.5-4.9 [facility] Comment on above: Performed By: #### L 200.0010 #### [facility] [address] [place] [address] 12221 Erythrocyte distribution width (RBC) [Ratio] 18.9 % High 12.5-15.7 [facility] Comment on above: Performed By: #### L 200.0010 #### ML - LABORATORY [address] [place] [address] 39430 Hematocrit (Bld) [Volume fraction] 34.8 % Low 36.0-48.0 [facility] Comment on above: Performed By: #### L 200.0010 #### ML - LABORATORY [address] [place] [address] 52109 Hemoglobin (Bld) [Mass/Vol] 11.6 g/dL Low 12.0-16.0 [facility] Comment on above: Performed By: #### L 200.0010 #### ML [facility] [address] [place] [address] 14496 LYMPH# 2.60 x10(3) Normal 1.00-3.50 [facility] Comment on above: Performed By: #### L 200.0010 #### ML [facility] [address] [place] [address] 61812 Lymphocytes/100 WBC (Bld) 28.4 % Normal 16.0-48.0 [facility] Comment on above: Performed By: #### L 200.0010 #### ML [facility] [address] [place] [address] 39370 MCH (RBC) [Entitic mass] 28.3 pg Low 28.5-32.9 [facility] Comment on above: Performed By: #### L 200.0010 #### ML [facility] [address] [place] [address] 13481 MCHC (RBC) [Mass/Vol] 33.4 g/dL Normal 33.0-36.0 [facility] Comment on above: Performed By: #### L 200.0010 #### ML [facility] [address] [place] [address] 39661 MCV (RBC) [Entitic vol] 84.7 fL Normal 80.0-99.0 [facility] Comment on above: Performed By: #### L 200.0010 #### ML [facility] [address] [place] [address] 82707 MONO# 0.70 x10(3) Normal 0.30-0.80 [facility] Comment on above: Performed By: #### L 200.0010 #### [facility] [address] [place] [address] 30492 Monocytes/100 WBC (Bld) 7.9 % Normal 4.3-11.2 [facility] Comment on above: Performed By: #### L 200.0010 #### ML [facility] [address] [place] [address] 75246 NEUT# 5.80 x10(3) Normal 1.40-6.50 [facility] Comment on above: Performed By: #### L 200.0010 #### [facility] [address] [place] [address] 76683 Neutrophils/100 WBC (Bld) 62.6 % Normal 45.0-73.0 [facility] Comment on above: Performed By: #### L 200.0010 #### [facility] [address] [place] [address] 15294 Platelet mean volume (Bld) [Entitic vol] 8.8 fL Normal 7.5-9.5 [facility] Comment on above: Performed By: #### L 200.0010 #### [facility] [address] [place] [address] 93974 PLT 366 X10(3) Normal 150-450 [facility] Comment on above: Performed By: #### L 200.0010 #### ML [facility] [address] [place] [address] 58142 RBC 4.12 x10(6) Normal 3.30-5.00 [facility] Comment on above: Performed By: #### L 200.0010 #### ML [facility] [address] [place] [address] 34304 WBC 9.3 x10(3) Normal 4.5-10.0 [facility] Comment on above: Performed By: #### L 200.0010 #### ML [facility] [address] [place] [address] 58878 CBC W Auto Differential pane l (Bld)on 04-19-2022 BASO ABS 0.10 x10(3) 0.00 - 0.10 x10(3) [facility] Basophils/100 WBC (Bld) 0.6 % 0.0 - 1.0 % [facility] EOS ABS 0.00 x10(3) 0.00 - 0.54 x10(3) [facility] Eosinophils/100 WBC (Bld) 0.5 % 0.5 - 4.9 % [facility] Erythrocyte distribution width (RBC) [Ratio] 18.9 % High 12.5 - 15.7 % [facility] Hematocrit (Bld) [Volume fraction] 34.8 % Low 36.0 - 48.0 % [facility] Hemoglobin (Bld) [Mass/Vol] 11.6 g/dL Low 12.0 - 16.0 g/dL [facility] LYMPH ABS 2.60 x10(3) 1.00 - 3.50 x10(3) [facility] Lymphocytes/100 WBC (Bld) 28.4 % 16.0 - 48.0 % [facility] MCH (RBC) [Entitic mass] 28.3 pg Low 28.5 - 32.9 pg [facility] MCHC (RBC) [Mass/Vol] 33.4 g/dL 33.0 - 36.0 g/dL [facility] MCV (RBC) [Entitic vol] 84.7 fL 80.0 - 99.0 fl [facility] MONO ABS 0.70 x10(3) 0.30 - 0.80 x10(3) [facility] Monocytes/100 WBC (Bld) 7.9 % 4.3 - 11.2 % [facility] Neutrophil Ab 5.80 x10(3) 1.40 - 6.50 x10(3) [facility] Neutrophils/100 WBC (Bld) 62.6 % 45.0 - 73.0 % [facility] Platelet Count 366 X10(3) 150 - 450 X10(3) [facility] Platelet mean volume (Bld) [Entitic vol] 8.8 fL 7.5 - 9.5 fl [facility] RBC 4.12 x10(6) 3.30 - 5.00 x10(6) [facility] WBC 9.3 x10(3) 4.5 - 10.0 x10(3) [facility] HEPATIC PANELon 04-19-2022 A:G RATIO 1.33 Normal 1.1-2.5 [facility] Comment on above: Performed By: #### L 200.3190, L200.3001 #### - LABORATORY [address] [place] [address] 44512 Albumin [Mass/Vol] 4.4 g/dL Normal 3.5-5.2 [facility] Comment on above: Performed By: #### L 200.3190, L200.3001 #### ML - LABORATORY [address] [place] [address] 54755 ALK. PHOS 118 U/L High 35-105 [facility] Comment on above: Performed By: #### L 200.3190, L200.3001 #### ML - LABORATORY [address] [place] [address] 56018 ALT [Catalytic activity/Vol] 17 U/L Normal 5-33 [facility] Comment on above: Performed By: #### L 200.3190, L200.3001 #### ML - LABORATORY [address] [place] [address] 30801 AST [Catalytic activity/Vol] 26 U/L Normal 5-32 [facility] Comment on above: Performed By: #### L 200.3190, L200.3001 #### ML - LABORATORY [address] [place] [address] 53019 Bilirubin [Mass/Vol] 0.4 mg/dL Normal 0.2-1.2 [facility] Comment on above: Performed By: #### L 200.3190, L200.3001 #### ML - LABORATORY [address] [place] [address] 23520 DIRECT BILIRUBI <0.2 Normal 0.0-0.3 [facility] Comment on above: Performed By: #### L 200.3190, L200.3001 #### ML - LABORATORY [address] [place] [address] 68861 Globulin (S) [Mass/Vol] 3.3 g/dL Normal 1.5-4.5 [facility] Comment on above: Performed By: #### L 200.3190, L200.3001 #### ML - LABORATORY [address] [place] [address] 43837 Protein [Mass/Vol] 7.7 g/dL Normal 6.4-8.3 [facility] Comment on above: Performed By: #### L 200.3190, L200.3001 #### ML - LABORATORY [address] [place] [address] 42213 Hepatic function 2000 panelo n 04-19-2022 Albumin [Mass/Vol] 4.4 g/dL 3.5 - 5.2 g/dL [facility] Albumin/Globulin [Mass ratio] 1.33 {ratio} 1.1 - 2.5 [facility] ALP [Catalytic activity/Vol] 118 U/L High 35 - 105 U/L [facility] ALT [Catalytic activity/Vol] 17 U/L 5 - 33 U/L [facility] AST [Catalytic activity/Vol] 26 U/L 5 - 32 U/L [facility] Bilirubin [Mass/Vol] 0.4 mg/dL 0.2 - 1 .2 mg/dL [facility] Direct Bilirubin <0.2 0.0 - 0.3 mg/dL [facility] Globulin (S) [Mass/Vol] 3.3 g/dL 1.5 - 4.5 g/dL [facility] Protein [Mass/Vol] 7.7 g/dL 6.4 - 8.3 g/dL [facility] LIPID PANELon 04-19-2022 Cholesterol [Mass/Vol] 267 mg/dL High 130-200 [facility] Comment on above: Performed By: #### L 200.3190, L200.3001 #### ML - LABORATORY [address] [place] [address] 52394 Cholesterol in HDL [Mass/Vol] 56 mg/dL Normal [facility] Comment on above: Result Comment: [...] L 200.3190, L200.3001 #### ML - LABORATORY [address] [place] [address] 16717 Cholesterol in LDL [Mass/Vol] 177 mg/dL Normal [facility] Comment on above: Result Comment: LDL: OPTIMAL FOR PEOPLE AT VERY HIGH RISK <70 OPTIMAL <100 NEAR OPTIMAL 100-129 BORDERLINE HIGH 130-159 HIGH 160-189 VERY HIGH >=190 Source: 2009 NCEP ATP III, ADA Guidelines Reviewed: December, Performed By: #### L 200.3190, L200.3001 #### [facility] - [facility] [address] [place] [address] 11889 Cholesterol in VLDL [Mass/Vol] 34 mg/dL Normal 6-40 [facility] Comment on above: Performed By: #### L 200.3190, L200.3001 #### ML - [facility] [address] [place] [address] 20472 LDL/HDL RATIO 3.2 Normal [facility] Comment on above: Performed By: #### L 200.3190, L200.3001 #### ML - [facility] [address] [place] [address] 45228 Triglyceride [Mass/Vol] 169 mg/dL Normal [facility] Comment on above: Result Comment: TRIG : DESIRABLE: <150 mg/dL Performed By: #### L 200.3190, L200.3001 #### ML - [facility] [address] [place] [address] 23973 Lipid 1996 panelon Cholesterol [Mass/Vol] 267 mg/dL High 130 - 200 mg/dL [facility] Cholesterol in HDL [Mass/Vol] 56 mg/dL [facility] Cholesterol in LDL [Mass/Vol] 177 mg/dL [facility] LDL:HDL Ratio 3.2 [facility] Triglyceride [Mass/Vol] 169 mg/dL [facility] VLDL Cholesterol 34 mg/dL 6 - 40 mg/dL [facility] TSHon 04-19-2022 TSH 2.58 uIU/mL Normal 0.270-4.200 [facility] Comment on above: Performed By: #### L 200.3190, L200.3001 #### [facility] - [facility] [address] [place], [place] [address] [place] [address] TSH Qnon 04-19-2022 TSH 2.58 uIU/mL 0.270 - 4.200 uIU/mL [facility] CNPNon 03-01-2022 CNPN Telephone (ERNESTODOVER) -- SHAWNADINA I ([id number]) 1950 F Date Time Provider Department 03/01/22 [...] else then she needs to call the filler picker for their recommendations on what to prescribe [...] Diarrhea PREDNISONE 08/30/2021 8 - GI Upset ZDTTBLY-CXA-[id number] REDUCTASE INHIBIT*06/22/2020 6 - Diarrhea SULFA (SULFONAMIDE ANTIBIOTICS) 06/15/2020 14 - Other: See Comments Comments: Leg pain Date Reviewed: 02/28/2022 Reviewed by: Kentrell Dhaliwal II, MD - Fully Assessed Reason for Visit: Patient Question [2028] Prescriptions as of 03/02/2022 - zolpidem (AMBIEN) [...] Encounter Status:[facility] (MELISSA R[facility] -- ADINA ESCOBAR I ([id number]) 1950 F Date Time Provider Department 02/28/22 2:20 PM KENTRELL DHALIWAL II During your visit today, we recorded the following information about you: Respiration Blood pressure Weight 14/minute 110/78 74.1 kg Kentrell Dhaliwal II, MD 03/06/2022 8:53 PM Signed Kentrell Dhaliwal II, MD [address], [place] [id number] SUBJECTIVE Adina Jovan Escobar is a 71 year old female [...] [Cefdinir] Diarrhea - Prednisone GI Upset - Qzcyfav-Yoi-Ajm Red* Diarrhea - Sulfa (Sulfonamide * Other: [...] 98% BMI (more content not included)... Normal [facility] 02-22-2022 LYDIA Telephone (DONYA) -- ADINA ESCOBAR I ([id number]) 1950 F Date Time Provider Department 02/22/22 KENTRELL DHALIWAL II During your visit today, [...] if both scripts could be sent to [facility], so she can pick them up Sunday. Quintoncamila Arnold Kentrell Dhaliwal II, MD 02/22/2022 1:10 PM Signed Done Allergies As of Date: 02/22/2022 Noted Allergy Reaction LATEX 06/22/2020 10 - Anaphylaxis CODEINE 06/22/2020 6 - Diarrhea COMPAZINE (PROCHLORPERAZINE) 06/22/2020 17 - Myalgia LEVAQUIN (LEVOFLOXACIN) 06/22/2020 6 - Diarrhea OMNICEF (CEFDINIR) 06/22/2020 6 - Diarrhea PREDNISONE 08/30/2021 8 - GI Upset TIBVXYR-GIC-ATZ REDUCTASE INHIBIT*06/22/2020 6 - Diarrhea SULFA (SULFONAMIDE [...] KENTRELL DHALIWAL II on 02/22/22 [facility] 02-16-2022 CNPN Telephone (ERNESTODOVER) -- ADINA ESCOBAR I ([id number]) 1950 F Date Time Provider Department 02/16/22 KENTRELL DHALIWAL II During your visit today, we recorded the following information about you: Susanne Ángela 02/16/2022 2:48 PM Signed Adina Escobar says [...] Diarrhea PREDNISONE 08/30/2021 8 - GI Upset LNUXCNL-QBN-PXQ REDUCTASE INHIBIT*06/22/2020 6 - Diarrhea SULFA (SULFONAMIDE [...] by SUSANNE MOTTA on 02/16/22 [facility] 01-24-2022 LYDIA Telephone (DONYA) -- ADINA ESCOBAR I ([id number]) 1950 F Date Time Provider Department 01/24/22 [...] Diarrhea PREDNISONE 08/30/2021 8 - GI Upset VZHABCI-MYR-IHP REDUCTASE INHIBIT*06/22/2020 6 - Diarrhea SULFA (SULFONAMIDE ANTIBIOTICS) 06/15/2020 14 - Other: See Comments Comments: Leg pain Date Reviewed: 01/17/2022 Reviewed by: Fifi Prather MA - Fully Assessed Reason for Visit: Patient Question [5344] Prescriptions as of 01/24/2022 - ALPRAZolam (XANAX) [...] Encounter Status:Closed by JOSEP DREW on 01/24/22 [facility] 01-23-2022 LYDIA Telephone (AGDOVER) -- SHAWNADINA I ([id number]) 1950 F Date Time Provider Department 01/23/22 [...] Diarrhea PREDNISONE 08/30/2021 8 - GI Upset KEYXEOT-NUA-OID REDUCTASE INHIBIT*06/22/2020 6 - Diarrhea SULFA (SULFONAMIDE [...] Encounter Status:Closed by JOSEP DREW on 01/23/22 [facility] 01-13-2022 LYDIA Telephone (DONYA) -- ADINA ESCOBAR I ([id number]) 1950 F Date Time Provider Department 01/13/22 [...] Diarrhea PREDNISONE 08/30/2021 8 - GI Upset PWUXKSE-QSK-NWR REDUCTASE INHIBIT*06/22/2020 6 - Diarrhea SULFA (SULFONAMIDE [...] Status:Closed by DENITA THOMAS MA on 01/13/22 [facility] CNPN Telephone (DONYA) -- ADINA ESCOBAR I ([id number]) 1950 F Date Time Provider Department 01/13/22 KENTRELL DHALIWAL II During your visit today, we recorded the following information about you: Susanne Motta 01/13/2022 9:46 AM Signed Adina Jovan Escobar is still having pain under her [...] should think about going to see a filler picker. Denita Martha GONZALEZ 01/13/2022 4:10 PM Signed Patient has been informed and will contact her insurance company. Denita Thomas LISA 01/16/2022 9:00 AM Signed Patient had contacted her insurance company and would like the referral be sent to Dr. Bonilla. Please order and fax. Denita Martha Dhaliwal II, MD 01/17/2022 1:07 PM Signed printed Kentrell Dhaliwal II, MD 01/17/2022 1:07 PM Signed Addended by: KENTRELL DHALIWAL II on: 01/17/2022 01:07 PM Modules accepted: Orders Denita Martha GONZALEZ 01/19/2022 11:[address] Bnoillas office called back mentioning that he was unable to take the patient due to he does not see people for SBO. Says that she will need to see a surgeon. Denita Martha Dhalwial II, MD 01/19/2022 1:44 PM Signed I [...] been refaxed with Dr. Dhaliwal message. Denita Martha Sainz 01/23/2022 10:27 AM Signed Kasey from [...] Diarrhea PREDNISONE 08/30/2021 8 - GI Upset CCGYZLJ-VAE-ZZM REDUCTASE INHIBIT*06/22/2020 6 - Diarrhea SULFA (SULFONAMIDE [...] 0 CONSULT TO GASTROENTEROLOGY [9010] Order #: [id number]: 1 FUTURE Prescriptions as of 01/23/2022 - [...] hypothyroidism [E03.8] (more content not included)... Normal [facility] US ABDOMEN COMPLETEon 2021 [facility] CNPNon 01-09-2022 JASONN Telephone (SHERONVER) -- ADINA ESCOBAR I ([id number]) 1950 F Date Time Provider Department 01/09/22 KENTRELL DHALIWAL II During your visit today, we recorded the following information about you: Denita Thomas MA 01/09/2022 10:21 AM Signed Ella from [facility] called regarding patients insurance. They are denying the PT and OT for patient with out the 485 signed and an actual order. 485 has been faxed but we just need an order for patients PT and OT. Please print order and fax to [phone]. Denita Dhaliwal II, MD 01/10/2022 8:55 AM Signed Gabriel Motta 01/10/2022 9:38 AM Signed Order faxed to [facility]. Susanne Motta 01/10/2022 11:06 AM Signed Americo from [facility] called, they received the PT order we faxed but they need it to have both PT and OT. Also, she had her first therapy on 4-7, could you put that start date on the order so her ins will cover it? Also has to have the [facility] on the order. The last one had a [facility] [place] on it. Susanne Dhaliwal II, MD 01/10/2022 5:15 PM Signed Printed Kentrell Dhaliwal II, MD 01/10/2022 5:15 PM Signed Addended by: KENTRELL DHALIWAL II on: 01/10/2022 05:15 PM Modules accepted: Orders Susanne Motta 01/11/2022 9:04 AM Signed Sent new order to [facility]. Susanne Motta Allergies As of Date: 01/09/2022 Noted Allergy Reaction LATEX 06/22/2020 10 - Anaphylaxis CODEINE 06/22/2020 6 - Diarrhea COMPAZINE (PROCHLORPERAZINE) 06/22/2020 17 - Myalgia LEVAQUIN (LEVOFLOXACIN) 06/22/2020 6 - Diarrhea OMNICEF (CEFDINIR) 06/22/2020 6 - Diarrhea PREDNISONE 08/30/2021 8 - GI Upset JRAFVUO-HYO-YUC REDUCTASE INHIBIT*06/22/2020 6 - Diarrhea SULFA (SULFONAMIDE ANTIBIOTICS) 06/15/2020 14 - Other: See Comments Comments: Leg pain Date Reviewed: 01/05/2022 Reviewed by: Denita Thomas MA - Fully Assessed Reason for Visit: Orders [681] Primary Visit Diagnosis:Generalized weakness [R53.1] Other Visit Diagnoses:SBO (small bowel obstruction) ([facility]) [K56.609] Fatigue, unspecified type [R53.83] Type 2 diabetes mellitus without complication, without long-term current use of insulin ([facility]) [E11.9] Parkinson's disease ([facility]) [G20] Order(s):CONSULT TO PHYSICAL THERAPY [9032] Order #: [id number]: 1 FUTURE CONSULT TO PHYSICAL THERAPY [9032] Order #: [id number]: 1 FUTURE Prescriptions as of 01/11/2022 - [...] Status:Closed by KENTRELL DHALIWAL II on 01/10/22 [facility] Ab 01-06-2022 [facility] Telephone ([place]) -- ADINA ESCOBAR I ([id number]) 1950 F Date Time Provider Department 01/06/22 [...] Diarrhea PREDNISONE 08/30/2021 8 - GI Upset RJIZCIF-PWW-KHB REDUCTASE INHIBIT*06/22/2020 6 - Diarrhea SULFA (SULFONAMIDE ANTIBIOTICS) 06/15/2020 14 - Other: See Comments Comments: Leg pain Date Reviewed: 01/05/2022 Reviewed by: Denita Thomas MA - Fully Assessed Reason for Visit: Results [95] Primary Visit Diagnosis:Generalized abdominal pain [R10.84] Other Visit Diagnosis:Elevated liver function tests [R79.89] Order(s):US ABDOMEN COMPLETE [9615330] Order #: [id number] FUTURE Prescriptions as of 01/06/2022 - docusate [...] by KENTRELL DHALIWAL II on 01/06/22 Normal [facility] Basic metabolic 2000 panelon 01-05-2022 Anion gap [Moles/Vol] 25.4 mmol/L High 15 - 2 2 mmol/L [facility] Calcium [Mass/Vol] 9.3 mg/dL 8.8 - 10. 2 mg/dL [facility] Chloride [Moles/Vol] 104 mmol/L 98 - 10 7 mmol/L [facility] CO2 [Moles/Vol] 12 mmol/L Low 22 - 29 mmol/L [facility] Creatinine [Mass/Vol] 1.15 mg/dL High 0.50 - 0.90 mg/dL [facility] eGFR-All Other Races [facility] GFR/1.73 sq M.predicted among blacks MDRD (S/P/Bld) [Vol rate/Area] 56 mL/min/{1.73_m2} [facility] Glucose [Mass/Vol] 122 mg/dL High 82 - 115 mg/dL [facility] Potassium [Moles/Vol] 4.4 mmol/L 3.5 - 5.0 mmol/L [facility] Sodium [Moles/Vol] 137 mmol/L 135 - 145 mmol/L [facility] Urea nitrogen [Mass/Vol] 19 mg/dL 8 - 23 mg/dL [facility] CBC W Auto Differential pane l (Bld)on 01-05-2022 BASO ABS 0.10 x10(3) 0.00 - 0.10 x10(3) [facility] Basophils/100 WBC (Bld) 0.6 % 0.0 - 1.0 % [facility] EOS ABS 0.00 x10(3) 0.00 - 0.54 x10(3) [facility] Eosinophils/100 WBC (Bld) 0.3 % Low 0.5 - 4.9 % [facility] Erythrocyte distribution width (RBC) [Ratio] 15.4 % 12.5 - 15.7 % [facility] Hematocrit (Bld) [Volume fraction] 36.2 % 36.0 - 48.0 % [facility] Hemoglobin (Bld) [Mass/Vol] 11.5 g/dL Low 12.0 - 16.0 g/dL [facility] LYMPH ABS 2.30 x10(3) 1.00 - 3.50 x10(3) [facility] Lymphocytes/100 WBC (Bld) 24.6 % 16.0 - 48.0 % [facility] MCH (RBC) [Entitic mass] 28.3 pg Low 28.5 - 32.9 pg [facility] MCHC (RBC) [Mass/Vol] 31.7 g/dL Low 33.0 - 36.0 g/dL [facility] MCV (RBC) [Entitic vol] 89.3 fL 80.0 - 99.0 fl [facility] MONO ABS 0.50 x10(3) 0.30 - 0.80 x10(3) [facility] Monocytes/100 WBC (Bld) 5.4 % 4.3 - 11.2 % [facility] Neutrophil Ab 6.50 x10(3) 1.40 - 6.50 x10(3) [facility] Neutrophils/100 WBC (Bld) 69.1 % 45.0 - 73.0 % [facility] Platelet Count 588 X10(3) High 150 - 450 X10(3) [facility] Platelet mean volume (Bld) [Entitic vol] 8.0 fL 7.5 - 9.5 fl [facility] RBC 4.06 x10(6) 3.30 - 5.00 x10(6) [facility] WBC 9.4 x10(3) 4.5 - 10.0 x10(3) [facility] CNOVon 01-05-2022 CNOV Office Visit (MELISSA R) -- ADINA ESCOBAR I ([id number]) 1950 F Date Time Provider Department 01/05/22 [...] No flowsheet data found. Summary Discharged from: [facility] Admit Date: 10/30/21-11/13/21 11/24/21-11/25/21, 12/26/21-12/21/21 Admitted for: [...] No flowsheet data found. Summary Discharged from: [facility] Admit Date: 12/26/21 Admitted for: Small bowel [...] gallop. Pulmon (more content not included)... Normal [facility] Telephone ([employer]) -- ADINA ESCOBAR Jovan ([id number]) 1950 F Date Time Provider Department 01/05/22 KENTRELL DHALIWAL II During your visit today, we recorded the following information about you: Josep Drew MA 01/05/2022 2:40 PM Signed Prior auth for LUBIPROSTONE was sent to [facility] LISA Rasmussen MA 01/06/2022 8:20 AM Signed -PA approved for Lubiprostone has been approved until 09/16/2022 Denita Thomas MA Allergies As of Date: 01/05/2022 Noted Allergy Reaction LATEX 06/22/2020 10 - Anaphylaxis CODEINE 06/22/2020 6 - Diarrhea COMPAZINE (PROCHLORPERAZINE) 06/22/2020 17 - Myalgia LEVAQUIN (LEVOFLOXACIN) 06/22/2020 6 - Diarrhea OMNICEF (CEFDINIR) 06/22/2020 6 - Diarrhea PREDNISONE 08/30/2021 8 - GI Upset [id number]-[id number] REDUCTASE INHIBIT*06/22/2020 6 - Diarrhea SULFA (SULFONAMIDE [...] Status:Closed by JOSEP DREW on 01/05/22 Normal [facility] HEPATIC FUNCTION PNLon 01-05 Albumin [Mass/Vol] 4.4 g/dL 3.5 - 5.2 g/dL [facility] Albumin/Globulin [Mass ratio] 1.41 {ratio} 1.1 - 2.5 [facility] ALP [Catalytic activity/Vol] 212 U/L High 35 - 105 U/L [facility] ALT [Catalytic activity/Vol] 88 U/L High 5 - 33 U/L [facility] AST [Catalytic activity/Vol] 89 U/L High 5 - 32 U/L [facility] Bilirubin [Mass/Vol] 0.4 mg/dL 0.2 - 1 .2 mg/dL [facility] Direct Bilirubin <0.2 0.0 - 0.3 mg/dL [facility] Globulin (S) [Mass/Vol] 3.1 g/dL 1.5 - 4.5 g/dL [facility] Protein [Mass/Vol] 7.5 g/dL 6.4 - 8.3 g/dL [facility] IRON + TIBCon 01-05-2022 % Saturation (TIBC) 12 % 10 - 32 % [facility] Iron [Mass/Vol] 58 ug/dL 37 - 145 ug/dL [facility] TIBC 458 mg/dL 269 - 535 mg/dL [facility] Transferrin [Mass/Vol] 327 mg/dL 192 - 382 mg/dL [facility] TSH Qnon 01-05-2022 TSH 2.02 uIU/mL 0.270 - 4.200 uIU/mL [facility] VITAMIN B12 BLOODon 01-06-20 Cobalamin (Vitamin B12) [Mass/Vol] 739.8 pg/mL 232 - 1,245 pg/mL [facility] VITAMIN D 25 HYDROXYon 01-05 VITAMIN D 36.9 ng/mL 30 - 100 ng/mL [facility] BMPon 12-20-2021 Anion gap [Moles/Vol] 11 mmol/L Normal 5-16 [facility] Comment on above: Order Comment: Campu s: M Performed By: #### L 500.80200, L500.17261, L500.81690, L550.28801 #### [facility] [place] [address] Calcium [Mass/Vol] 8.4 mg/dL Low 8.5-10.5 [facility] Comment on above: Order Comment: Campu s: M Result Comment: NOTE NEW NORMAL RANGE DUE TO REAGENT CHANGE Performed By: #### L 500.88866, L500.80374, L500.51945, L550.21096 #### [facility] [place] [address] Chloride [Moles/Vol] 107 mmol/L Normal 98-107 [facility] Comment on above: Order Comment: Valentina s: M Performed By: #### L 500.62747, L500.31011, L500.29489, L550.38546 #### [facility] [address] [place] [address] CO2 [Moles/Vol] 23.0 mmol/L Normal 21-32 [facility] Comment on above: Order Comment: Valentina s: M Performed By: #### L 500.37227, L500.41365, L500.75997, L550.59886 #### [facility] [address] [place] [address] Creatinine [Mass/Vol] 1.10 mg/dL High 0.510-0.950 [facility] Comment on above: Order Comment: Valentina s: M Result Comment: Joanie ents receiving either N-Acetylcysteine (NAC) or Metamizole prior to venipuncture, may have falsely depressed results. Performed By: #### L 500.91680, L500.20304, L500.71024, L550.20035 #### [facility] [address] [place] [address] Glucose [Mass/Vol] 102 mg/dL High 70-100 [facility] Comment on above: Order Comment: Everu s: M Result Comment: 70-1 00- Normal Fasting; 100-125 Impaired Fasting; greater than 126 on more than one result- Diabetes. ADA guidelines. Results may be falsely elevated after the administration of Sulfapyridine. Results may be falsely depressed after the administration of Sulfasalazine. Performed By: #### L 500.50323, L500.54211, L500.61234, L550.79892 #### [facility] [place] [address] Potassium [Moles/Vol] 3.5 mmol/L Normal 3.5-5.1 [facility] Comment on above: Order Comment: Campu s: M Performed By: #### L 500.00439, L500.71456, L500.18596, L550.41195 #### [facility] [address] [place] [address] Sodium [Moles/Vol] 141 mmol/L Normal 136-145 [facility] Comment on above: Order Comment: Campu s: M Performed By: #### L 500.05943, L500.10125, L500.23174, L550.40378 #### [facility] [address] [place] [address] Urea nitrogen [Mass/Vol] 12 mg/dL Normal 7-26 [facility] Comment on above: Order Comment: Campu s: M Performed By: #### L 500.98026, L500.25458, L500.14895, L550.80265 #### [facility] [address] [place] [address] Urea nitrogen/Creatinine [Mass ratio] 11 mg/mg Low 15-24 [facility] Comment on above: Order Comment: Campu s: M Performed By: #### L 500.61689, L500.70668, L500.92057, L550.24574 #### [facility] [address] [place] [address] CBC W/DIFFon 12-20-2021 BASO ABS 0.00 K/CU MM Normal 0-0.2 [facility] Comment on above: Order Comment: Campu s: M Performed By: #### L 200.75687 #### [facility] [address] [place] [address] Basophils/100 WBC (Bld) 0.3 % Normal 0-2 [facility] Comment on above: Order Comment: Campu s: M Performed By: #### L 200.92775 #### [facility] [address] [place] [address] EOS ABS 0.00 K/CU MM Normal 0-0.5 [facility] Comment on above: Order Comment: Campu s: M Performed By: #### L 200.60741 #### [facility] [address] [place] [address] Eosinophils/100 WBC (Bld) 0.0 % Normal 0-5 [facility] Comment on above: Order Comment: Campu s: M Performed By: #### L 200.66175 #### [facility] [address] [place] [address] Erythrocyte distribution width (RBC) [Ratio] 14.9 % High 11-14.5 [facility] Comment on above: Order Comment: Campu s: M Performed By: #### L 200.41300 #### [facility] [address] [place] [address] Hematocrit (Bld) [Volume fraction] 28.9 % Low 35.0-47.0 [facility] Comment on above: Order Comment: Campu s: M Performed By: #### L 200.47657 #### [facility] [address] [place] [address] Hemoglobin (Bld) [Mass/Vol] 9.4 g/dL Low 11.5-15.5 [facility] Comment on above: Order Comment: Campu s: M Performed By: #### L 200.41539 #### [facility] [address] [place] [address] IMMATR GRAN ABS 0.10 K/CU MM Normal Less than 2 [facility] Comment on above: Order Comment: Campu s: M Performed By: #### L 200.01630 #### [facility] [address] [place] [address] IMMATURE GRAN % 1.2 % Normal Less than 2 [facility] Comment on above: Order Comment: Campu s: M Performed By: #### L 200.60735 #### [facility] [address] [place] [address] LYMPH ABS 0.40 K/CU MM Low 0.9-4.4 [facility] Comment on above: Order Comment: Campu s: M Performed By: #### L 200.37086 #### [facility] [address] [place] [address] Lymphocytes/100 WBC (Bld) 3.9 % Low 20-40 [facility] Comment on above: Order Comment: Campu s: M Performed By: #### L 200.09453 #### [facility] [address] [place] [address] MCHC (RBC) [Mass/Vol] 32.5 g/dL Normal 32.0-36.0 [facility] Comment on above: Order Comment: Campu s: M Performed By: #### L 200.73387 #### [facility] [address] [place] [address] MCV (RBC) [Entitic vol] 90.6 fL Normal 80.0-99.0 [facility] Comment on above: Order Comment: Campu s: M Result Comment: Repe ated and verified. Performed By: #### L 200.75380 #### [facility] [address] [place] [address] MONO ABS 0.30 K/CU MM Normal 0.1-1.1 [facility] Comment on above: Order Comment: Campu s: M Performed By: #### L 200.21665 #### [facility] [address] [place] [address] Monocytes/100 WBC (Bld) 2.8 % Normal 2-10 [facility] Comment on above: Order Comment: Campu s: M Performed By: #### L 200.77168 #### [facility] [address] [place] [address] NEUTROPHIL ABS 10.30 K/CU MM High 2.0-8.3 [facility] Comment on above: Order Comment: Campu s: M Performed By: #### L 200.51357 #### [facility] [address] [place] [address] Neutrophils/100 WBC (Bld) 91.8 % High 45-75 [facility] Comment on above: Order Comment: Campu s: M Performed By: #### L .51320 #### [facility] [address] [place] [address] Nucleated RBC/100 WBC (Bld) [Ratio] 0.0 % Normal Less than 1 [facility] Comment on above: Order Comment: Campu s: M Performed By: #### L 200.03767 #### [facility] [address] [place] [address] Platelet mean volume (Bld) [Entitic vol] 10.6 fL Normal 9.4-12.4 [facility] Comment on above: Order Comment: Campu s: M Performed By: #### L 200.38439 #### [facility] [address] [place] [address] PLT 297 K/CU MM Normal 150-450 [facility] Comment on above: Order Comment: Campu s: M Performed By: #### L 200.96279 #### [facility] [address] [place] [address] RBC 3.19 M/CU MM Low 3.90-5.30 [facility] Comment on above: Order Comment: Campu s: M Performed By: #### L .57230 #### [facility] [address] [place] [address] WBC 11.2 K/CUMM High 4.5-11.0 [facility] Comment on above: Order Comment: Valentina s: M Performed By: #### L 200.02916 #### [facility] [address]# [phone] CT ABD/PEL W IV CONTRAST ONL Yon [...] effusions. Heart size is within normal limits. Physical Medicine Teacher (topogram) images: No additional findings. IMPRESSION: 1. [...] VALADEZ M.D. Signed By: PAULO VALADEZ M.D. [facility] 12-20-2021 EMERGENCY PHYSICIAN REPORT This is a preliminary report only, as the practitioner review and authentication has not occurred. [facility] ER PHYSICIAN ASSESSMENT RECORDS : FlexChartData Event Time: 12/20/2021 13:05 [facility] Status: Signed [facility] Adina Escobar [[id number]] Mid-Level Chart (V2b) 71 / F / 1950 Chart created at 12/20/2021 12:54 by Aly Granados PA-C Chart closed at 12/20/2021 14:02 Entry in Emergency Department at 12/20/2021 12:19, departure at 12/20/2021 15:46 Patient Name: Adina Escobar Record Number: [id number] Date: 12/20/2021 12:54 Entered Department at: 12/20/2021 12:19 Patient Seen at: 12/20/2021 12:58 Historian: Patient Chief Complaint:c/o left upper abdominal pain, at [facility] for bowl obst. surgery. was suppose to go home today. n/v today after started on mechanical soft diet. Nursing triage/initial assessment reviewed and confirmed and Initial Vital Signs reviewed. Temperature: 99.1 F (37.3 C). Pulse: 110. Respiratory Rate: 20. Blood-pressure: 131/74. Oxygen Saturation: 97%. History of Present Illness: 71-Year-old female presents emergency department via EMS from [facility]. About 2 months ago she had a bowel obstruction that needed resected by Dr. Jaswant Moseley at [facility]. She did well was discharged but then developed an infection and questionable abscess. She was readmitted. She was [facility] PATIENT NAME: ADINA ESCOBAR I [address] [facility] [address] Peña MEDICAL REC #: [id number] [place] [address] EMERGENCY DEPARTMENT REPORT EMERGENCY DEPARTMENT PHYSICIAN started on TPN at that time.. She needed no further surgical intervention but states that the initial resection was quite complicated as far as length of procedure and severity according to her. She states she saw her surgeon yesterday who discharged her from [facility] she was supposed to go home today. [...] Breath Sounds Cardio-Vascular: No rub; Tachycardic regular [facility] PATIENT NAME: ADINA ESCOBAR I [address] [facility] [address] Peña MEDICAL REC #: [id number] [place] [address] EMERGENCY DEPARTMENT REPORT EMERGENCY DEPARTMENT PHYSICIAN rhythm [...] by Radiologist. Re-Evaluation: 12:57: Dr. Jaswant Moseley [id number]. 13:19: Patient is had most of her medical care by her surgeon (more content not included)... Normal [facility] GFR ESTon 12-20-2021 IF AMER 59 Normal [facility] Comment on above: Order Comment: Campu s: M Performed By: #### L 500.38675, L500.90532, L500.49772, L550.50041 #### [facility] [address] [place] [address] IF non-AFR AMER 49 Normal [facility] Comment on above: Order Comment: Campu s: M Performed By: #### L 500.76701, L500.74139, L500.82727, L550.77310 #### [facility] [address] [place] [address] LACTATE BLOODon 12-20-2021 LACTATE BLOOD 2.04 MMOL/L High 0.40-2.00 [facility] Comment on above: Order Comment: Campu s: M Performed By: #### L 500.50169, L500.89408, L500.00900, L550.96672 #### [facility] [address] [place] [address] [id number] 12-20-2021 SARS-CoV-2 (COVID-19) RNA RENATA+probe Ql (Unsp spec) Negative Invalid Interpretation Code Negative [facility] Comment on above: Order Comment: Valentina [...] performed by PCR. Performed By: #### L 550.11196, L500.14944, L500.35534, L500.47755 #### [facility] [address] [place] [address] BMPon 12-19-2021 Anion gap [Moles/Vol] 9 mmol/L Normal 5-16 [facility] Comment on above: Performed By: #### L 550.84360, L500.68798, L500.49134, L500.84590 #### [facility] [address] [place] [address] Calcium [Mass/Vol] 8.5 mg/dL Normal 8.5-10.5 [facility] Comment on above: Result Comment: NOTE NEW NORMAL RANGE DUE TO REAGENT CHANGE Performed By: #### L 550.50131, L500.97460, L500.45171, L500.80100 #### [facility] [address] [place] [address] Chloride [Moles/Vol] 112 mmol/L High 98-107 [facility] Comment on above: Performed By: #### L 550.91422, L500.80457, L500.40402, L500.73158 #### [facility] [address] [place] [address] CO2 [Moles/Vol] 22.0 mmol/L Normal 21-32 [facility] Comment on above: Performed By: #### L 550.80985, L500.91493, L500.84845, L500.75323 #### [facility] [place] [address] Creatinine [Mass/Vol] 0.95 mg/dL Normal 0.510-0.950 [facility] Comment on above: Result Comment: Joanie ents receiving either N-Acetylcysteine (NAC) or Metamizole prior to venipuncture, may have falsely depressed results. Performed By: #### L 550.85362, L500.51284, L500.78458, L500.48082 #### [facility] [address] [place] [address] Glucose [Mass/Vol] 116 mg/dL High 70-100 [facility] Comment on above: Result Comment: 70-1 00- Normal Fasting; 100-125 Impaired Fasting; greater than 126 on more than one result- Diabetes. ADA guidelines. Results may be falsely elevated after the administration of Sulfapyridine. Results may be falsely depressed after the administration of Sulfasalazine. Performed By: #### L 550.76001, L500.68922, L500.69415, L500.59958 #### [facility] [address] [place] [address] Potassium [Moles/Vol] 3.8 mmol/L Normal 3.5-5.1 [facility] Comment on above: Result Comment: Slig ht Hemolysis, Result may be affected. Performed By: #### L 550.17141, L500.63830, L500.68926, L500.48069 #### [facility] [place] [address] Sodium [Moles/Vol] 143 mmol/L Normal 136-145 [facility] Comment on above: Performed By: #### L 550.39897, L500.41520, L500.20387, L500.18565 #### [facility] [address] [place] [address] Urea nitrogen [Mass/Vol] 12 mg/dL Normal 7-26 [facility] Comment on above: Performed By: #### L 550.38877, L500.54256, L500.66533, L500.95455 #### [facility] [address] [place] [address] Urea nitrogen/Creatinine [Mass ratio] 13 mg/mg Low 15-24 [facility] Comment on above: Performed By: #### L 550.66464, L500.66360, L500.52260, L500.92445 #### [facility] [address] [place] [address] CBCon 12-19-2021 Erythrocyte distribution width (RBC) [Ratio] 15.2 % High 11-14.5 [facility] Comment on above: Performed By: #### L 500.88103, L500.85828, L500.71692, L550.56904 #### [facility] [address] [place] [address] Hematocrit (Bld) [Volume fraction] 31.8 % Low 35.0-47.0 [facility] Comment on above: Performed By: #### L 500.46160, L500.23690, L500.58394, L550.20818 #### [facility] [address] [place] [address] Hemoglobin (Bld) [Mass/Vol] 9.6 g/dL Low 11.5-15.5 [facility] Comment on above: Performed By: #### L 500.61410, L500.34834, L500.28806, L550.75066 #### [facility] [address] [place] [address] MCHC (RBC) [Mass/Vol] 30.2 g/dL Low 32.0-36.0 [facility] Comment on above: Performed By: #### L 500.99417, L500.50282, L500.19737, L550.84492 #### [facility] [address] [place] [address] MCV (RBC) [Entitic vol] 97.2 fL Normal 80.0-99.0 [facility] Comment on above: Performed By: #### L 500.64784, L500.57505, L500.46960, L550.73425 #### [facility] [address] [place] [address] Nucleated RBC/100 WBC (Bld) [Ratio] 0.0 % Normal Less than 1 [facility] Comment on above: Performed By: #### L 500.78744, L500.43306, L500.71301, L550.16162 #### [facility] [address] [place] [address] Platelet mean volume (Bld) [Entitic vol] 12.4 fL Normal 9.4-12.4 [facility] Comment on above: Performed By: #### L 500.95487, L500.70756, L500.07115, L550.55931 #### [facility] [address] [place] [address] PLT 299 K/CU MM Normal 150-450 [facility] Comment on above: Performed By: #### L 500.18532, L500.71711, L500.48689, L550.91648 #### [facility] [address] [place] [address] RBC 3.27 M/CU MM Low 3.90-5.30 [facility] Comment on above: Performed By: #### L 500.14960, L500.94101, L500.27637, L550.79500 #### [facility] [address] [place] [address] WBC 5.8 K/CUMM Normal 4.5-11.0 [facility] Comment on above: Performed By: #### L 500.89316, L500.36941, L500.72878, L550.00267 #### [facility] [address] [place] [address] CHOLon 12-19-2021 CHOL 156 MG/dL Normal 0-199 [facility] Comment on above: Performed By: #### L 550.64532, L500.93810, L500.08924, L500.76472 #### [facility] [address] [place] [address] GFR ESTon 12-19-2021 IF AMER Greater than 60 Normal [facility] Comment on above: Performed By: #### L 550.15508, L500.96437, L500.83010, L500.72948 #### [facility] [address] [place], [place] [id number] IF non-AFR AMER 58 Normal [facility] Comment on above: Performed By: #### L 550.46765, L500.06879, L500.69638, L500.52668 #### [facility] [address] [place], [place] [address] LDHon 12-19-2021 LDH 200 U/L Normal 84-246 [facility] Comment on above: Performed By: #### L 550.61350, L500.76928, L500.61845, L500.30969 #### [facility] [address] [place] [address] PHOSon 12-19-2021 Phosphate [Mass/Vol] 4.30 mg/dL Normal 2.5-4.9 [facility] Comment on above: Result Comment: Elev ated m-protein (paraprotein) levels in the serum may be exhibited in patients with monoclonal gammopathies, causing falsely elevated inorganic phosphorus results. Performed By: #### L 550.84568, L500.17056, L500.74610, L500.48570 #### [facility] [address] [place] [address] PREALBon 12-19-2021 PREALB 26 MG/DL Normal 20-40 [facility] Comment on above: Performed By: #### L 550.45514, L500.08209, L500.39797, L500.62288 #### [facility] [address] [place] [address] PTon 12-19-2021 INR Coag (PPP) [Relative time] 0.98 {INR} Normal 0.9-1.1 [facility] Comment on above: Result Comment: Az mmended PT INR therapeutic range for termite exterminator and prophylactic therapy is 2.0 - 3.0. For heart valve and shunt patients the range is 2.5 - 3.5. Performed By: #### L 550.17910, L500.70377, L500.75974, L500.48939 #### [facility] [address] [place] [address] PTS 10.7 SECONDS Normal 9.5-12.0 [facility] Comment on above: Performed By: #### L 550.42041, L500.30877, L500.17768, L500.11169 #### [facility] [address] [place], [place] [id number] SGOT (AST)on 12-19-2021 AST [Catalytic activity/Vol] 78 U/L High 8-34 [facility] Comment on above: Result Comment: RESU LTS MAY BE FALSELY DEPRESSED AFTER THE ADMINISTRATION OF SULFASALAZINE AND/OR SULFAPYRIDINE. Performed By: #### L 550.95743, L500.38943, L500.63173, L500.62208 #### [facility] [address] [place] [id number] SGPT (ALT)on 12-19-2021 ALT [Catalytic activity/Vol] 76 U/L High 13-61 [facility] Comment on above: Result Comment: RESU LTS MAY BE FALSELY DEPRESSED AFTER THE ADMINISTRATION OF SULFASALAZINE AND/OR SULFAPYRIDINE. Performed By: #### L 550.50376, L500.83378, L500.58507, L500.61455 #### [facility] [address] [place] [id number] TPon 12-19-2021 Protein [Mass/Vol] 5.6 g/dL Low 6.0-8.5 [facility] Comment on above: Performed By: #### L 550.87178, L500.22549, L500.04386, L500.20272 #### [facility] [address] [place] [address] TRIGon 12-19-2021 Triglyceride [Mass/Vol] 113 mg/dL Normal 30-149 [facility] Comment on above: Result Comment: Joanie ents receiving either N-Acetylcysteine (NAC) or Metamizole prior to venipuncture, may have falsely depressed results. Performed By: #### L 550.35181, L500.44917, L500.35328, L500.14986 #### [facility] [address] [place] [address] BMPon 12-15-2021 Anion gap [Moles/Vol] 12 mmol/L Normal 5-16 [facility] Comment on above: Performed By: #### L 550.53256, L500.15276, L500.25030, L500.36140 #### [facility] [address] [place] [address] Calcium [Mass/Vol] 8.9 mg/dL Normal 8.5-10.5 [facility] Comment on above: Result Comment: NOTE NEW NORMAL RANGE DUE TO REAGENT CHANGE Performed By: #### L 550.79555, L500.12822, L500.54519, L500.38681 #### [facility] [place] [address] Chloride [Moles/Vol] 111 mmol/L High 98-107 [facility] Comment on above: Performed By: #### L 550.72652, L500.82729, L500.07947, L500.27472 #### [facility] [address] [place] [address] CO2 [Moles/Vol] 18.0 mmol/L Low 21-32 [facility] Comment on above: Performed By: #### L 550.68920, L500.66341, L500.98841, L500.92692 #### [facility] [address] [place] [address] Creatinine [Mass/Vol] 0.95 mg/dL Normal 0.510-0.950 [facility] Comment on above: Result Comment: Joanie ents receiving either N-Acetylcysteine (NAC) or Metamizole prior to venipuncture, may have falsely depressed results. Performed By: #### L 550.43609, L500.95990, L500.03354, L500.57097 #### [facility] [address] [place] [address] Glucose [Mass/Vol] 129 mg/dL High 70-100 [facility] Comment on above: Result Comment: 70-1 00- Normal Fasting; 100-125 Impaired Fasting; greater than 126 on more than one result- Diabetes. ADA guidelines. Results may be falsely elevated after the administration of Sulfapyridine. Results may be falsely depressed after the administration of Sulfasalazine. Performed By: #### L 550.07656, L500.58760, L500.12516, L500.08568 #### [facility] [address] [place] [address]180 Potassium [Moles/Vol] 4.1 mmol/L Normal 3.5-5.1 [facility] Comment on above: Result Comment: Slig ht Hemolysis, Result may be affected. Performed By: #### L 550.69495, L500.95495, L500.60343, L500.85468 #### [facility] [address] [place] [address] Sodium [Moles/Vol] 140 mmol/L Normal 136-145 [facility] Comment on above: Performed By: #### L 550.12018, L500.79384, L500.05379, L500.50490 #### [facility] [address] [place] [address] 23517 Urea nitrogen [Mass/Vol] 23 mg/dL Normal 7-26 [facility] Comment on above: Performed By: #### L 550.82742, L500.91265, L500.00725, L500.97758 #### [facility] [address] [place] [address]20 Urea nitrogen/Creatinine [Mass ratio] 24 mg/mg Normal 15-24 [facility] Comment on above: Performed By: #### L 550.61549, L500.10018, L500.26175, L500.39879 #### [facility] [address] [place], [place] [id number] GFR ESTon 12-15-2021 IF AMER Greater than 60 Normal [facility] Comment on above: Performed By: #### L 550.82364, L500.63041, L500.33878, L500.92433 #### [facility] [address] [place] [address] IF non-AFR AMER 58 Normal [facility] Comment on above: Performed By: #### L 550.87564, L500.71733, L500.01929, L500.95550 #### [facility] [address] [place] [address] MAGNESIUMon 12-15-2021 Magnesium [Mass/Vol] 1.9 mg/dL Normal 1.6-2.6 [facility] Comment on above: Performed By: #### L 550.79416, L500.14671, L500.10536, L500.95085 #### [facility] [address] [place] [address] PREALBon 12-15-2021 PREALB 32 MG/DL Normal 20-40 [facility] Comment on above: Performed By: #### L 550.05456, L500.68459, L500.82161, L500.33821 #### [facility] [address] [place], [place] [id number] PTon 12-15-2021 INR Coag (PPP) [Relative time] 1.00 {INR} Normal 0.9-1.1 [facility] Comment on above: Result Comment: Az mmended PT INR therapeutic range for termite exterminator and prophylactic therapy is 2.0 - 3.0. For heart valve and shunt patients the range is 2.5 - 3.5. Performed By: #### L 550.07131, L500.42984, L500.70239, L500.26365 #### [facility] [address] [place], [place] [address] PTS 10.9 SECONDS Normal 9.5-12.0 [facility] Comment on above: Performed By: #### L 550.23849, L500.49713, L500.45029, L500.34530 #### [facility] [address] [place] [address] 72237 BMPon 12-12-2021 Anion gap [Moles/Vol] 9 mmol/L Normal 5-16 [facility] Comment on above: Performed By: #### L 550.39043, L500.85177, L500.38003, L500.45970 #### [facility] [address] [place] [address] Calcium [Mass/Vol] 9.3 mg/dL Normal 8.5-10.5 [facility] Comment on above: Result Comment: NOTE NEW NORMAL RANGE DUE TO REAGENT CHANGE Performed By: #### L 550.85499, L500.55553, L500.81400, L500.22883 #### [facility] [address] [place] [address] Chloride [Moles/Vol] 108 mmol/L High 98-107 [facility] Comment on above: Performed By: #### L 550.21739, L500.27387, L500.74402, L500.83578 #### [facility] [address] [place] [address] CO2 [Moles/Vol] 23.0 mmol/L Normal 21-32 [facility] Comment on above: Performed By: #### L 550.15710, L500.49619, L500.35901, L500.60108 #### [facility] [address] [place] [address] Creatinine [Mass/Vol] 1.02 mg/dL High 0.510-0.950 [facility] Comment on above: Result Comment: Joanie ents receiving either N-Acetylcysteine (NAC) or Metamizole prior to venipuncture, may have falsely depressed results. Performed By: #### L 550.22614, L500.04540, L500.05426, L500.69167 #### [facility] [address] [place], [place] [address] Glucose [Mass/Vol] 115 mg/dL High 70-100 [facility] Comment on above: Result Comment: 70-1 00- Normal Fasting; 100-125 Impaired Fasting; greater than 126 on more than one result- Diabetes. ADA guidelines. Results may be falsely elevated after the administration of Sulfapyridine. Results may be falsely depressed after the administration of Sulfasalazine. Performed By: #### L 550.71264, L500.98303, L500.96156, L500.25090 #### [facility] [address] [place] [address] Potassium [Moles/Vol] 4.4 mmol/L Normal 3.5-5.1 [facility] Comment on above: Performed By: #### L 550.08789, L500.71343, L500.53469, L500.19478 #### [facility] [address] [place] [address] Sodium [Moles/Vol] 140 mmol/L Normal 136-145 [facility] Comment on above: Performed By: #### L 550.40500, L500.45816, L500.93071, L500.96289 #### [facility] [address] [place] [address] Urea nitrogen [Mass/Vol] 22 mg/dL Normal 7-26 [facility] Comment on above: Performed By: #### L 550.29231, L500.16769, L500.85019, L500.45833 #### [facility] [address] [place] [address] Urea nitrogen/Creatinine [Mass ratio] 22 mg/mg Normal 15-24 [facility] Comment on above: Performed By: #### L 550.07776, L500.79489, L500.64522, L500.99030 #### [facility] [address] [place] [address] CBCon 12-12-2021 Erythrocyte distribution width (RBC) [Ratio] 15.0 % High 11-14.5 [facility] Comment on above: Performed By: #### L 500.78698, L500.59800, L500.46866, L550.28225 #### [facility] [address] [place] [address] Hematocrit (Bld) [Volume fraction] 30.3 % Low 35.0-47.0 [facility] Comment on above: Performed By: #### L 500.85854, L500.74404, L500.42047, L550.63223 #### [facility] [address] [place] [address] Hemoglobin (Bld) [Mass/Vol] 10.0 g/dL Low 11.5-15.5 [facility] Comment on above: Performed By: #### L 500.77328, L500.53093, L500.23943, L550.66869 #### [facility] [address] [place] [address] MCHC (RBC) [Mass/Vol] 33.0 g/dL Normal 32.0-36.0 [facility] Comment on above: Performed By: #### L 500.14445, L500.88061, L500.57498, L550.10538 #### [facility] [address] [place] [address] MCV (RBC) [Entitic vol] 90.2 fL Normal 80.0-99.0 [facility] Comment on above: Performed By: #### L 500.87332, L500.93686, L500.58857, L550.93834 #### [facility] [address] [place] [address] Nucleated RBC/100 WBC (Bld) [Ratio] 0.0 % Normal Less than 1 [facility] Comment on above: Performed By: #### L 500.27936, L500.87519, L500.26568, L550.37995 #### [facility] [address] [place] [address] Platelet mean volume (Bld) [Entitic vol] 11.1 fL Normal 9.4-12.4 [facility] Comment on above: Performed By: #### L 500.75726, L500.61157, L500.06066, L550.93335 #### [facility] [address] [place] [address] PLT 373 K/CU MM Normal 150-450 [facility] Comment on above: Performed By: #### L 500.72229, L500.57895, L500.70772, L550.26099 #### [facility] [address] [place] [address] RBC 3.36 M/CU MM Low 3.90-5.30 [facility] Comment on above: Performed By: #### L 500.44854, L500.12732, L500.87261, L550.63347 #### [facility] [address] [place] [address] WBC 8.5 K/CUMM Normal 4.5-11.0 [facility] Comment on above: Performed By: #### L 500.97047, L500.15505, L500.31497, L550.02566 #### [facility] [address] [place] [address] CHOLon 12-12-2021 CHOL 194 MG/dL Normal 0-199 [facility] Comment on above: Performed By: #### L 550.85887, L500.26886, L500.29525, L500.89547 #### [facility] [address] [place], [place] [address] GFR ESTon 12-12-2021 IF AMER Greater than 60 Normal [facility] Comment on above: Performed By: #### L 550.01454, L500.24195, L500.86718, L500.86754 #### [facility] [address] [place] [address] IF non-AFR AMER 54 Normal [facility] Comment on above: Performed By: #### L 550.63109, L500.90228, L500.97338, L500.23765 #### [facility] [address] [place] [address] LDHon 12-12-2021 LDH 234 U/L Normal 84-246 [facility] Comment on above: Performed By: #### L 550.59427, L500.60938, L500.19731, L500.00641 #### [facility] [address] [place] [address] PHOSon 12-12-2021 Phosphate [Mass/Vol] 4.40 mg/dL Normal 2.5-4.9 [facility] Comment on above: Result Comment: Elev ated m-protein (paraprotein) levels in the serum may be exhibited in patients with monoclonal gammopathies, causing falsely elevated inorganic phosphorus results. Performed By: #### L 550.20905, L500.54311, L500.46828, L500.25287 #### [facility] [address] [place] [address] PREALBon 12-12-2021 PREALB 35 MG/DL Normal 20-40 [facility] Comment on above: Performed By: #### L 550.91049, L500.69234, L500.39703, L500.62538 #### [facility] [address] [place], [place] [address] PTon 12-12-2021 INR Coag (PPP) [Relative time] 0.91 {INR} Normal 0.9-1.1 [facility] Comment on above: Result Comment: Az mmended PT INR therapeutic range for snf and prophylactic therapy is 2.0 - 3.0. For heart valve and shunt patients the range is 2.5 - 3.5. Performed By: #### L 200.20315 #### [facility] [address] [place] [address] PTS 10.0 SECONDS Normal 9.5-12.0 [facility] Comment on above: Performed By: #### L 200.51912 #### [facility] [place] [id number] SGOT (AST)on 12-12-2021 AST [Catalytic activity/Vol] 114 U/L High 8-34 [facility] Comment on above: Result Comment: RESU LTS MAY BE FALSELY DEPRESSED AFTER THE ADMINISTRATION OF SULFASALAZINE AND/OR SULFAPYRIDINE. Performed By: #### L 550.99870, L500.24045, L500.36986, L500.23386 #### [facility] [address] [place] [address] SGPT (ALT)on 12-12-2021 ALT [Catalytic activity/Vol] 112 U/L High 13-61 [facility] Comment on above: Result Comment: RESU LTS MAY BE FALSELY DEPRESSED AFTER THE ADMINISTRATION OF SULFASALAZINE AND/OR SULFAPYRIDINE. Performed By: #### L 550.60860, L500.27005, L500.11279, L500.52989 #### [facility] [place] [address] TPon 12-12-2021 Protein [Mass/Vol] 6.5 g/dL Normal 6.0-8.5 [facility] Comment on above: Performed By: #### L 550.88193, L500.50251, L500.08480, L500.09503 #### [facility] [place] [address] TRIGon 12-12-2021 Triglyceride [Mass/Vol] 129 mg/dL Normal 30-149 [facility] Comment on above: Result Comment: Joanie ents receiving either N-Acetylcysteine (NAC) or Metamizole prior to venipuncture, may have falsely depressed results. Performed By: #### L 550.27538, L500.75705, L500.51143, L500.09770 #### [facility] [address] [place] [address] BMPon 12-08-2021 Anion gap [Moles/Vol] 10 mmol/L Normal 5-16 [facility] Comment on above: Performed By: #### L 500.77655, L500.45780, L500.88072, L550.50961 #### [facility] [address] [place] [address] Calcium [Mass/Vol] 8.8 mg/dL Normal 8.5-10.5 [facility] Comment on above: Result Comment: NOTE NEW NORMAL RANGE DUE TO REAGENT CHANGE Performed By: #### L 500.12349, L500.16998, L500.48135, L550.73197 #### [facility] [address] [place] [address] Chloride [Moles/Vol] 111 mmol/L High 98-107 [facility] Comment on above: Performed By: #### L 500.97743, L500.27174, L500.51104, L550.91827 #### [facility] [address] [place] [address] CO2 [Moles/Vol] 22.0 mmol/L Normal 21-32 [facility] Comment on above: Performed By: #### L 500.41852, L500.64868, L500.49351, L550.57879 #### [facility] [address] [place] [address] Creatinine [Mass/Vol] 0.96 mg/dL High 0.510-0.950 [facility] Comment on above: Result Comment: Joanie ents receiving either N-Acetylcysteine (NAC) or Metamizole prior to venipuncture, may have falsely depressed results. Performed By: #### L 500.20371, L500.74830, L500.86650, L550.30534 #### [facility] [address] [place] [address] Glucose [Mass/Vol] 123 mg/dL High 70-100 [facility] Comment on above: Result Comment: 70-1 00- Normal Fasting; 100-125 Impaired Fasting; greater than 126 on more than one result- Diabetes. ADA guidelines. Results may be falsely elevated after the administration of Sulfapyridine. Results may be falsely depressed after the administration of Sulfasalazine. Performed By: #### L 500.89407, L500.46748, L500.20328, L550.79435 #### [facility] [address] [place] [address] Potassium [Moles/Vol] 4.1 mmol/L Normal 3.5-5.1 [facility] Comment on above: Performed By: #### L 500.64794, L500.89300, L500.69177, L550.68445 #### [facility] [address] [place] [address] Sodium [Moles/Vol] 143 mmol/L Normal 136-145 [facility] Comment on above: Performed By: #### L 500.47871, L500.06151, L500.01261, L550.07915 #### [facility] [address] [place], [place] [address] Urea nitrogen [Mass/Vol] 20 mg/dL Normal 7-26 [facility] Comment on above: Performed By: #### L 500.74488, L500.83195, L500.86182, L550.79619 #### [facility] [address] [place] [address] Urea nitrogen/Creatinine [Mass ratio] 21 mg/mg Normal 15-24 [facility] Comment on above: Performed By: #### L 500.51162, L500.81477, L500.96180, L550.65818 #### [facility] [address] [place] [address] GFR ESTon 12-08-2021 IF AMER Greater than 60 Normal [facility] Comment on above: Performed By: #### L 500.88375, L500.10607, L500.97378, L550.41060 #### [facility] [address] [place] [address] IF non-AFR AMER 57 Normal [facility] Comment on above: Performed By: #### L 500.41771, L500.97917, L500.23496, L550.54392 #### [facility] [address] [place] [address] MAGNESIUMon 12-08-2021 Magnesium [Mass/Vol] 1.9 mg/dL Normal 1.6-2.6 [facility] Comment on above: Performed By: #### L 500.08215, L500.26584, L500.36168, L550.17996 #### [facility] [address] [place] [address] PREALBon 12-08-2021 PREALB 29 MG/DL Normal 20-40 [facility] Comment on above: Performed By: #### L 500.62661, L500.57515, L500.48473, L550.90590 #### [facility] [address] [place] [address] PTon 12-08-2021 INR Coag (PPP) [Relative time] 0.99 {INR} Normal 0.9-1.1 [facility] Comment on above: Result Comment: Az mmended PT INR therapeutic range for termite exterminator and prophylactic therapy is 2.0 - 3.0. For heart valve and shunt patients the range is 2.5 - 3.5. Performed By: #### L 500.28220, L500.00086, L500.17251, L550.07207 #### [facility] [place] [address] PTS 10.8 SECONDS Normal 9.5-12.0 [facility] Comment on above: Performed By: #### L 500.02110, L500.74053, L500.15389, L550.12344 #### [facility] [address] [place] [address] BMPon 12-05-2021 Anion gap [Moles/Vol] 12 mmol/L Normal 5-16 [facility] Comment on above: Performed By: #### L 500.39242, L500.70710, L500.44315, L550.42216 #### [facility] [address] [place] [address] Calcium [Mass/Vol] 8.8 mg/dL Normal 8.5-10.5 [facility] Comment on above: Result Comment: NOTE NEW NORMAL RANGE DUE TO REAGENT CHANGE Performed By: #### L 500.24502, L500.58441, L500.62330, L550.62562 #### [facility] [address] [place] [address] Chloride [Moles/Vol] 112 mmol/L High 98-107 [facility] Comment on above: Performed By: #### L 500.38834, L500.20484, L500.15644, L550.54842 #### [facility] [address] [place] [address] CO2 [Moles/Vol] 19.0 mmol/L Low 21-32 [facility] Comment on above: Performed By: #### L 500.52701, L500.17403, L500.92280, L550.54063 #### [facility] [address] [place] [address] Creatinine [Mass/Vol] 0.91 mg/dL Normal 0.510-0.950 [facility] Comment on above: Result Comment: Joanie ents receiving either N-Acetylcysteine (NAC) or Metamizole prior to venipuncture, may have falsely depressed results. Performed By: #### L 500.92044, L500.60709, L500.21524, L550.16356 #### [facility] [address] [place] [address] Glucose [Mass/Vol] 126 mg/dL High 70-100 [facility] Comment on above: Result Comment: 70-1 00- Normal Fasting; 100-125 Impaired Fasting; greater than 126 on more than one result- Diabetes. ADA guidelines. Results may be falsely elevated after the administration of Sulfapyridine. Results may be falsely depressed after the administration of Sulfasalazine. Performed By: #### L 500.85134, L500.62939, L500.08990, L550.12769 #### [facility] [address] [place] [address] Potassium [Moles/Vol] 3.8 mmol/L Normal 3.5-5.1 [facility] Comment on above: Result Comment: Slig ht Hemolysis, Result may be affected. Performed By: #### L 500.13996, L500.78258, L500.59040, L550.12498 #### [facility] [address] [place] [address] Sodium [Moles/Vol] 143 mmol/L Normal 136-145 [facility] Comment on above: Performed By: #### L 500.81040, L500.67997, L500.80441, L550.75659 #### [facility] [address] [place] [address] Urea nitrogen [Mass/Vol] 19 mg/dL Normal 7-26 [facility] Comment on above: Performed By: #### L 500.87199, L500.57276, L500.02590, L550.19642 #### [facility] [address] [place] [address] Urea nitrogen/Creatinine [Mass ratio] 21 mg/mg Normal 15-24 [facility] Comment on above: Performed By: #### L 500.14170, L500.36463, L500.07154, L550.73794 #### [facility] [address] [place] [address] CBCon 12-05-2021 Erythrocyte distribution width (RBC) [Ratio] 15.8 % High 11-14.5 [facility] Comment on above: Performed By: #### L 200.68596 #### [facility] [address] [place] [address] Hematocrit (Bld) [Volume fraction] 33.4 % Low 35.0-47.0 [facility] Comment on above: Performed By: #### L 200.62567 #### [facility] [address] [place] [address] Hemoglobin (Bld) [Mass/Vol] 10.3 g/dL Low 11.5-15.5 [facility] Comment on above: Performed By: #### L 200.11740 #### [facility] [address] [place] [address] MCHC (RBC) [Mass/Vol] 30.8 g/dL Low 32.0-36.0 [facility] Comment on above: Performed By: #### L 200.45332 #### [facility] [address] [place], [place] [id number] MCV (RBC) [Entitic vol] 94.6 fL Normal 80.0-99.0 [facility] Comment on above: Performed By: #### L 200.20722 #### [facility] [address] [place] [id number] Nucleated RBC/100 WBC (Bld) [Ratio] 0.0 % Normal Less than 1 [facility] Comment on above: Performed By: #### L 200.23566 #### [facility] [address] [place] [id number] Platelet mean volume (Bld) [Entitic vol] 11.9 fL Normal 9.4-12.4 [facility] Comment on above: Performed By: #### L 200.08047 #### [facility] [address] [place] [address] PLT 285 K/CU MM Normal 150-450 [facility] Comment on above: Performed By: #### L 200.06816 #### [facility] [address] [place] [address] RBC 3.53 M/CU MM Low 3.90-5.30 [facility] Comment on above: Performed By: #### L 200.44373 #### [facility] [address] [place] [id number] WBC 9.4 K/CUMM Normal 4.5-11.0 [facility] Comment on above: Performed By: #### L 200.87372 #### [facility] [facility] [address] [place], [place] [id number] CHOLon 12-05-2021 CHOL 151 MG/dL Normal 0-199 [facility] Comment on above: Performed By: #### L 500.18343, L500.13165, L500.67768, L550.12304 #### [facility] [address] [place], [place] [address] GFR ESTon 12-05-2021 IF AMER Greater than 60 Normal [facility] Comment on above: Performed By: #### L 500.46826, L500.50430, L500.37664, L550.70251 #### [facility] [address] [id number] IF non-AFR AMER Greater than 60 Normal [facility] Comment on above: Performed By: #### L 500.67581, L500.24222, L500.69140, L550.55982 #### [facility] [address] [place], [place] [address] LDHon 12-05-2021 LDH 200 U/L Normal 84-246 [facility] Comment on above: Performed By: #### L 500.77255, L500.85782, L500.79399, L550.25692 #### [facility] [address] [place] [address] PHOSon 12-05-2021 Phosphate [Mass/Vol] 4.20 mg/dL Normal 2.5-4.9 [facility] Comment on above: Result Comment: Elev ated m-protein (paraprotein) levels in the serum may be exhibited in patients with monoclonal gammopathies, causing falsely elevated inorganic phosphorus results. Performed By: #### L 500.75821, L500.48545, L500.67000, L550.59409 #### [facility] [place] [address] PREALBon 12-05-2021 PREALB 33 MG/DL Normal 20-40 [facility] Comment on above: Performed By: #### L 500.19834, L500.71991, L500.68664, L550.30936 #### [facility] [address] [place], [place] [id number] PTon 12-05-2021 INR Coag (PPP) [Relative time] 1.00 {INR} Normal 0.9-1.1 [facility] Comment on above: Result Comment: Az mmended PT INR therapeutic range for snf and prophylactic therapy is 2.0 - 3.0. For heart valve and shunt patients the range is 2.5 - 3.5. Performed By: #### L 200.34389 #### [facility] [address] [place] [address] PTS 10.9 SECONDS Normal 9.5-12.0 [facility] Comment on above: Performed By: #### L 200.52812 #### [facility] [place] [address] SGOT (AST)on 12-05-2021 AST [Catalytic activity/Vol] 74 U/L High 8-34 [facility] Comment on above: Result Comment: RESU LTS MAY BE FALSELY DEPRESSED AFTER THE ADMINISTRATION OF SULFASALAZINE AND/OR SULFAPYRIDINE. Performed By: #### L 500.93119, L500.38925, L500.72540, L550.94516 #### [facility] [address] [place] [address] SGPT (ALT)on 12-05-2021 ALT [Catalytic activity/Vol] 78 U/L High 13-61 [facility] Comment on above: Result Comment: RESU LTS MAY BE FALSELY DEPRESSED AFTER THE ADMINISTRATION OF SULFASALAZINE AND/OR SULFAPYRIDINE. Performed By: #### L 500.61965, L500.21394, L500.98270, L550.34318 #### [facility] [place] [address] TPon 12-05-2021 Protein [Mass/Vol] 5.9 g/dL Low 6.0-8.5 [facility] Comment on above: Performed By: #### L 500.31788, L500.80603, L500.21410, L550.60923 #### [facility] [place] [address] TRIGon 12-05-2021 Triglyceride [Mass/Vol] 150 mg/dL High 30-149 [facility] Comment on above: Result Comment: Joanie ents receiving either N-Acetylcysteine (NAC) or Metamizole prior to venipuncture, may have falsely depressed results. Performed By: #### L 500.20385, L500.82500, L500.29304, L550.54956 #### [facility] [address] [place] [address] BMPon 12-01-2021 Anion gap [Moles/Vol] 7 mmol/L Normal 5-16 [facility] Comment on above: Performed By: #### L 200.53862 #### [facility] [place] [address] Calcium [Mass/Vol] 8.5 mg/dL Normal 8.5-10.5 [facility] Comment on above: Result Comment: NOTE NEW NORMAL RANGE DUE TO REAGENT CHANGE Performed By: #### L 200.35268 #### [facility] [address] [place] [address] Chloride [Moles/Vol] 112 mmol/L High 98-107 [facility] Comment on above: Performed By: #### L 200.29682 #### [facility] [address] [place] [address] CO2 [Moles/Vol] 21.0 mmol/L Normal 21-32 [facility] Comment on above: Performed By: #### L 200.24201 #### [facility] [address] [place], [place] [address] Creatinine [Mass/Vol] 0.86 mg/dL Normal 0.510-0.950 [facility] Comment on above: Result Comment: Joanie ents receiving either N-Acetylcysteine (NAC) or Metamizole prior to venipuncture, may have falsely depressed results. Performed By: #### L 200.76757 #### [facility] [place] [address] Glucose [Mass/Vol] 135 mg/dL High 70-100 [facility] Comment on above: Result Comment: 70-1 00- Normal Fasting; 100-125 Impaired Fasting; greater than 126 on more than one result- Diabetes. ADA guidelines. Results may be falsely elevated after the administration of Sulfapyridine. Results may be falsely depressed after the administration of Sulfasalazine. Performed By: #### L 200.36415 #### [facility] [address] [place] [address] Potassium [Moles/Vol] 3.7 mmol/L Normal 3.5-5.1 [facility] Comment on above: Result Comment: Slig ht Hemolysis, Result may be affected. Performed By: #### L 200.60062 #### [facility] [address] [place] [address] Sodium [Moles/Vol] 140 mmol/L Normal 136-145 [facility] Comment on above: Performed By: #### L 200.56567 #### [facility] [address] [place] [address] Urea nitrogen [Mass/Vol] 18 mg/dL Normal 7-26 [facility] Comment on above: Performed By: #### L 200.08865 #### [facility] [address] [place] [address] Urea nitrogen/Creatinine [Mass ratio] 21 mg/mg Normal 15-24 [facility] Comment on above: Performed By: #### L 200.63969 #### [facility] [address] [place] [address] GFR ESTon 12-01-2021 IF AMER Greater than 60 Normal [facility] Comment on above: Performed By: #### L 200.13541 #### [facility] [address] [place], [place] [address] IF non-AFR AMER Greater than 60 Normal [facility] Comment on above: Performed By: #### L 200.05471 #### [facility] [address] [place] [address] MAGNESIUMon 12-01-2021 Magnesium [Mass/Vol] 1.7 mg/dL Normal 1.6-2.6 [facility] Comment on above: Performed By: #### L 200.56187 #### [facility] [address] [place], [place] [address] PREALBon 12-01-2021 PREALB 31 MG/DL Normal 20-40 [facility] Comment on above: Performed By: #### L 550.92066, L500.35979, L500.67998, L500.01492 #### [facility] [address] [place], [place] [address] PTon 12-01-2021 INR Coag (PPP) [Relative time] 0.97 {INR} Normal 0.9-1.1 [facility] Comment on above: Result Comment: Az mmended PT INR therapeutic range for termite exterminator and prophylactic therapy is 2.0 - 3.0. For heart valve and shunt patients the range is 2.5 - 3.5. Performed By: #### L 500.85524, L500.80331, L500.07411, L550.75163 #### [facility] [address] [place] [address] PTS 10.6 SECONDS Normal 9.5-12.0 [facility] Comment on above: Performed By: #### L 500.24142, L500.52754, L500.21777, L550.68049 #### [facility] [address] [place] [address] BMPon 11-28-2021 Glucose [Mass/Vol] 845 mg/dL Critically high 70-100 M [facility] Comment on above: Result Comment: Crit ical Result(s) Called at: 12:06:26 on 11/28/2021 by [facility]. Called to and read back by: BARON CEDILLO 70-100- Normal Fasting; 100-125 Impaired Fasting; greater than 126 on more than one result- Diabetes. ADA guidelines. Results may be falsely elevated after the administration of Sulfapyridine. Results may be falsely depressed after the administration of Sulfasalazine. Performed By: #### L 500.32857, L500.04108, L500.52082, L550.44678 #### [facility] [place] [address] Anion gap [Moles/Vol] 9 mmol/L Normal 5-16 [facility] Comment on above: Performed By: #### L 500.59457, L500.02026, L500.80905, L550.75565 #### [facility] [address] [place] [address] Calcium [Mass/Vol] 8.4 mg/dL Low 8.5-10.5 [facility] Comment on above: Result Comment: NOTE NEW NORMAL RANGE DUE TO REAGENT CHANGE Performed By: #### L 500.16732, L500.75711, L500.04605, L550.96938 #### [facility] [place] [address] Chloride [Moles/Vol] 105 mmol/L Normal 98-107 [facility] Comment on above: Performed By: #### L 500.16057, L500.51149, L500.46646, L550.14872 #### [facility] [place] [address] CO2 [Moles/Vol] 21.0 mmol/L Normal 21-32 [facility] Comment on above: Performed By: #### L 500.58771, L500.38923, L500.11246, L550.26002 #### [facility] [address] [place] [address] Creatinine [Mass/Vol] 1.00 mg/dL High 0.510-0.950 [facility] Comment on above: Result Comment: Joanie ents receiving either N-Acetylcysteine (NAC) or Metamizole prior to venipuncture, may have falsely depressed results. Performed By: #### L 500.21142, L500.33552, L500.28454, L550.81491 #### [facility] [place] [address] Potassium [Moles/Vol] 5.4 mmol/L High 3.5-5.1 [facility] Comment on above: Result Comment: Slig ht Hemolysis, Result may be affected. Performed By: #### L 500.45269, L500.71380, L500.27203, L550.02791 #### [facility] [address] [place] [address] Sodium [Moles/Vol] 135 mmol/L Low 136-145 [facility] Comment on above: Performed By: #### L 500.41358, L500.11266, L500.95525, L550.66788 #### [facility] [address] [place] [address] Urea nitrogen [Mass/Vol] 21 mg/dL Normal 7-26 [facility] Comment on above: Result Comment: Crit ical Result(s) Called at: 12:06:26 on 11/28/2021 by [facility]. Called to and read back by: BARON CEDILLO Performed By: #### L 500.57774, L500.36773, L500.45238, L550.21916 #### [facility] [address] [place] [address] Urea nitrogen/Creatinine [Mass ratio] 21 mg/mg Normal 15-24 [facility] Comment on above: Performed By: #### L 500.07689, L500.27436, L500.28155, L550.93600 #### [facility] [place] [address] CBCon 11-28-2021 Erythrocyte distribution width (RBC) [Ratio] 15.3 % High 11-14.5 [facility] Comment on above: Performed By: #### L 550.40125, L500.71502, L500.12396, L500.05202 #### [facility] [address] [place] [address] Hematocrit (Bld) [Volume fraction] 28.2 % Low 35.0-47.0 [facility] Comment on above: Performed By: #### L 550.48086, L500.30970, L500.33106, L500.39544 #### [facility] [address] [place] [address] Hemoglobin (Bld) [Mass/Vol] 8.9 g/dL Low 11.5-15.5 [facility] Comment on above: Performed By: #### L 550.06334, L500.31126, L500.83074, L500.12326 #### [facility] [address] [place] [address] MCHC (RBC) [Mass/Vol] 31.6 g/dL Low 32.0-36.0 [facility] Comment on above: Performed By: #### L 550.32291, L500.20359, L500.99104, L500.92182 #### [facility] [address] [place] [address] MCV (RBC) [Entitic vol] 95.9 fL Normal 80.0-99.0 [facility] Comment on above: Performed By: #### L 550.78801, L500.52723, L500.94655, L500.30799 #### [facility] [address] [place] [address] Nucleated RBC/100 WBC (Bld) [Ratio] 0.0 % Normal Less than 1 [facility] Comment on above: Performed By: #### L 550.52755, L500.23698, L500.81495, L500.20188 #### [facility] [address] [place] [address] Platelet mean volume (Bld) [Entitic vol] 11.8 fL Normal 9.4-12.4 [facility] Comment on above: Performed By: #### L 550.44752, L500.25455, L500.89590, L500.59058 #### [facility] [address] [place] [address] PLT 334 K/CU MM Normal 150-450 [facility] Comment on above: Performed By: #### L 550.64100, L500.98130, L500.89023, L500.05947 #### [facility] [address] [place] [address] RBC 2.94 M/CU MM Low 3.90-5.30 [facility] Comment on above: Performed By: #### L 550.34137, L500.83436, L500.31627, L500.21627 #### [facility] [address] [place] [address] WBC 8.9 K/CUMM Normal 4.5-11.0 [facility] Comment on above: Performed By: #### L 550.74302, L500.91367, L500.82792, L500.63407 #### [facility] [address] [place] [address] CDIF PCRon 11-28-2021 CDIF PCR Negative Normal NEGATIVE [facility] Comment on above: Result Comment: This specimen is negative for the molecular prescence of the C.difficile Gene and warrants no further testing. It is recommended that no more than one stool specimen be tested for C.Difficile by PCR per week. Performed By: #### L 550.47591, L500.93777, L500.17107, L500.18829 #### [facility] [address] [place] [address] CHOLon 11-28-2021 CHOL 141 MG/dL Normal 0-199 [facility] Comment on above: Performed By: #### L 500.48037, L500.34335, L500.16921, L550.24943 #### [facility] [address] [place] [address] GFR ESTon 11-28-2021 IF AMER Greater than 60 Normal [facility] Comment on above: Performed By: #### L 500.40824, L500.70437, L500.86742, L550.82604 #### [facility] [address] [place] [address] IF non-AFR AMER 55 Normal [facility] Comment on above: Performed By: #### L 500.69114, L500.95157, L500.79008, L550.00358 #### [facility] [address] [place] [address] LDHon 11-28-2021 LDH 182 U/L Normal 84-246 [facility] Comment on above: Performed By: #### L 500.70217, L500.93911, L500.43089, L550.86700 #### [facility] [address] [place] [address] PHOSon 11-28-2021 Phosphate [Mass/Vol] 6.00 mg/dL High 2.5-4.9 [facility] Comment on above: Result Comment: Slig ht Lipemia, Result may be affected. Elevated m-protein (paraprotein) levels in the serum may be exhibited in patients with monoclonal gammopathies, causing falsely elevated inorganic phosphorus results. Performed By: #### L 500.40398, L500.35931, L500.66746, L550.13344 #### [facility] [address] [place], [place] [id number] PREALBon 03-14-2022 PREALB 30 MG/DL Normal 20-40 [facility] Comment on above: Performed By: #### L 500.68593, L500.87494, L500.68968, L550.57619 #### [facility] [place] [address] PTon 11-28-2021 INR Coag (PPP) [Relative time] 1.01 {INR} Normal 0.9-1.1 [facility] Comment on above: Result Comment: Az mmended PT INR therapeutic range for snf and prophylactic therapy is 2.0 - 3.0. For heart valve and shunt patients the range is 2.5 - 3.5. Performed By: #### L 300.17793 #### [facility] [address] [place], [place] [address] PTS 11.0 SECONDS Normal 9.5-12.0 [facility] Comment on above: Performed By: #### L 300.89662 #### [facility] [address] [place], [place] [address] SGOT (AST)on 11-28-2021 AST [Catalytic activity/Vol] 50 U/L High 8-34 [facility] Comment on above: Result Comment: RESU LTS MAY BE FALSELY DEPRESSED AFTER THE ADMINISTRATION OF SULFASALAZINE AND/OR SULFAPYRIDINE. Performed By: #### L 500.21242, L500.37947, L500.06474, L550.13119 #### [facility] [place] [address] SGPT (ALT)on 11-28-2021 ALT [Catalytic activity/Vol] 48 U/L Normal 13-61 [facility] Comment on above: Result Comment: RESU LTS MAY BE FALSELY DEPRESSED AFTER THE ADMINISTRATION OF SULFASALAZINE AND/OR SULFAPYRIDINE. Performed By: #### L 500.02827, L500.65136, L500.12066, L550.92541 #### [facility] [address] [place] [address] TPon 11-28-2021 Protein [Mass/Vol] 5.3 g/dL Low 6.0-8.5 [facility] Comment on above: Performed By: #### L 500.82790, L500.21175, L500.64982, L550.68211 #### [facility] [place] [address] TRIGon 11-28-2021 Triglyceride [Mass/Vol] 448 mg/dL High 30-149 [facility] Comment on above: Result Comment: Joanie ents receiving either N-Acetylcysteine (NAC) or Metamizole prior to venipuncture, may have falsely depressed results. Performed By: #### L 500.54836, L500.25658, L500.31468, L550.53884 #### [facility] [address] [place] [address] BMPon 11-25-2021 Anion gap [Moles/Vol] 12 mmol/L Normal 5-16 [facility] Comment on above: Performed By: #### L 200.43003 #### [facility] [address] [place] [address] Calcium [Mass/Vol] 8.8 mg/dL Normal 8.5-10.5 [facility] Comment on above: Result Comment: NOTE NEW NORMAL RANGE DUE TO REAGENT CHANGE Performed By: #### L 200.73705 #### [facility] [place] [address] Chloride [Moles/Vol] 108 mmol/L High 98-107 [facility] Comment on above: Performed By: #### L 200.17838 #### [facility] [place] [address] CO2 [Moles/Vol] 22.0 mmol/L Normal 21-32 [facility] Comment on above: Performed By: #### L 200.60400 #### [facility] [address] [place] [address] Creatinine [Mass/Vol] 1.06 mg/dL High 0.510-0.950 [facility] Comment on above: Result Comment: Joanie ents receiving either N-Acetylcysteine (NAC) or Metamizole prior to venipuncture, may have falsely depressed results. Performed By: #### L 200.70517 #### [facility] [address] [place] [address] Glucose [Mass/Vol] 124 mg/dL High 70-100 [facility] Comment on above: Result Comment: 70-1 00- Normal Fasting; 100-125 Impaired Fasting; greater than 126 on more than one result- Diabetes. ADA guidelines. Results may be falsely elevated after the administration of Sulfapyridine. Results may be falsely depressed after the administration of Sulfasalazine. Performed By: #### L 200.62107 #### [facility] [place] [address] Potassium [Moles/Vol] 4.2 mmol/L Normal 3.5-5.1 [facility] Comment on above: Result Comment: Slig ht Hemolysis, Result may be affected. Performed By: #### L 200.28602 #### [facility] [address] [place] [address] Sodium [Moles/Vol] 142 mmol/L Normal 136-145 [facility] Comment on above: Performed By: #### L 200.64803 #### [facility] [address] [place] [address] Urea nitrogen [Mass/Vol] 19 mg/dL Normal 7-26 [facility] Comment on above: Performed By: #### L 200.98385 #### [facility] [address] [place] [address] Urea nitrogen/Creatinine [Mass ratio] 18 mg/mg Normal 15-24 [facility] Comment on above: Performed By: #### L 200.16880 #### [facility] [address] [place] [address] CBCon 11-25-2021 Erythrocyte distribution width (RBC) [Ratio] 15.0 % High 11-14.5 [facility] Comment on above: Performed By: #### L 500.82057, L500.66136, L500.49001, L550.09603 #### [facility] [address] [place] [address] Hematocrit (Bld) [Volume fraction] 30.9 % Low 35.0-47.0 [facility] Comment on above: Performed By: #### L 500.72390, L500.56846, L500.74059, L550.29061 #### [facility] [address] [place] [address] Hemoglobin (Bld) [Mass/Vol] 9.6 g/dL Low 11.5-15.5 [facility] Comment on above: Performed By: #### L 500.59604, L500.60307, L500.88213, L550.77636 #### [facility] [address] [place] [address] MCHC (RBC) [Mass/Vol] 31.1 g/dL Low 32.0-36.0 [facility] Comment on above: Performed By: #### L 500.20552, L500.97704, L500.14535, L550.83421 #### [facility] [address] [place] [address] MCV (RBC) [Entitic vol] 93.1 fL Normal 80.0-99.0 [facility] Comment on above: Performed By: #### L 500.61804, L500.15877, L500.66437, L550.48136 #### [facility] [address] [place], [place] [address] Nucleated RBC/100 WBC (Bld) [Ratio] 0.0 % Normal Less than 1 [facility] Comment on above: Performed By: #### L 500.56125, L500.52689, L500.39457, L550.87424 #### [facility] [address] [place] [address] Platelet mean volume (Bld) [Entitic vol] 11.0 fL Normal 9.4-12.4 [facility] Comment on above: Performed By: #### L 500.69644, L500.30537, L500.27589, L550.00407 #### [facility] [address] [place] [address] PLT 433 K/CU MM Normal 150-450 [facility] Comment on above: Performed By: #### L 500.67616, L500.21847, L500.23350, L550.94230 #### [facility] [address] [place] [address] RBC 3.32 M/CU MM Low 3.90-5.30 [facility] Comment on above: Performed By: #### L 500.67967, L500.48768, L500.60635, L550.33598 #### [facility] [address] [place] [address] WBC 10.4 K/CUMM Normal 4.5-11.0 [facility] Comment on above: Performed By: #### L 500.58504, L500.31702, L500.43982, L550.31385 #### [facility] [address] [place] [address] GFR ESTon 11-25-2021 IF AMER Greater than 60 Normal [facility] Comment on above: Performed By: #### L 200.22615 #### [facility] [place] [address] IF non-AFR AMER 51 Normal [facility] Comment on above: Performed By: #### L 200.61711 #### [facility] [address] [place], [place] [id number] MAGNESIUMon 11-25-2021 Magnesium [Mass/Vol] 2.0 mg/dL Normal 1.6-2.6 [facility] Comment on above: Performed By: #### L .58027 #### [facility] [address] [place] [address] PREALBon 11-25-2021 PREALB 27 MG/DL Normal 20-40 [facility] Comment on above: Performed By: #### L .68470 #### [facility] [address] [place] [address] PTon 11-25-2021 INR Coag (PPP) [Relative time] 0.98 {INR} Normal 0.9-1.1 [facility] Comment on above: Result Comment: Az mmended PT INR therapeutic range for snf and prophylactic therapy is 2.0 - 3.0. For heart valve and shunt patients the range is 2.5 - 3.5. Performed By: #### L [id number], L500.23573, L500.73769, L500.69708 #### [facility] [address] [place], [place] [id number] PTS 10.7 SECONDS Normal 9.5-12.0 [facility] Comment on above: Performed By: #### L [id number], L500.64625, L500.25682, L500.07588 #### [facility] [address] [place] [id number] CNPNon 11-15-2021 CNPN Telephone (BoxcarKASH) -- ADINA ESCOBAR I ([id number]) 1950 F Date Time Provider Department 11/15/21 SERGIO GOLDMAN, KENTRELL NAQVI During your visit today, we recorded the following information about you: Joseprod Drew MA 11/15/2021 9:33 AM Signed TRANSITIONAL CARE MANAGEMENT (TCM) COMMUNITY MONITORING PROGRAM - [place] Provider Action/FYI: Dr. Kentrell Dhaliwal II SUMMARY: Pt discharged from [facility] on 10/19/2021. Admitted for: Small Bowel Obstruction Contact made with patient: Yes Hi my name is Josep HEAD and I am calling from the [facility] on behalf of your [...] like to speak with a social work staff nurse icu resource team to help give you support for any [...] I will send your request to a human resource advisor who will contact and assist you with [...] Diarrhea PREDNISONE 08/30/2021 8 - GI Upset VHSFLEU-BZT-WPB REDUCTASE INHIBIT*06/22/2020 6 - Diarrhea SULFA (SULFONAMIDE ANTIBIOTICS) 06/15/2020 14 - Other: See Comments Comments: Leg pain Date Reviewed: 08/30/2021 Reviewed by: Kentrell Dhaliwal II, MD - 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 Normal [facility] CNPNon 09-22-2021 CNPN Telephone (AGDOVER) -- ADINA ESCOBAR I ([id number]) 1950 F Date Time Provider Department 09/22/21 [...] Diarrhea PREDNISONE 08/30/2021 8 - GI Upset LGYYSJH-NEO-QBD REDUCTASE INHIBIT*06/22/2020 6 - Diarrhea SULFA (SULFONAMIDE [...] Status:Closed by KENTRELL DHALIWAL II on 09/22/21 [facility] 09-14-2021 LYDIA Telephone (DONYA) -- ADINA ESCOBAR I ([id number]) 1950 F Date Time Provider Department 09/14/21 [...] Diarrhea PREDNISONE 08/30/2021 8 - GI Upset KMOFQAR-BKL-RJS REDUCTASE INHIBIT*06/22/2020 6 - Diarrhea SULFA (SULFONAMIDE [...] Encounter Status:Closed by JOSEP DREW [facility]N Telephone (AGDOVER) -- SHAWNADINA Jovan ([id number]) 1950 F Date Time Provider Department 09/06/21 [...] Diarrhea PREDNISONE 08/30/2021 8 - GI Upset KXHYVHP-DIV-NXX REDUCTASE INHIBIT*06/22/2020 6 - Diarrhea SULFA (SULFONAMIDE [...] Status:Closed by DENITA THOMAS MA on 09/07/21 [facility] [facility] Office Visit (AGVE R) -- ADINA ESCOBAR I ([id number]) 1950 F Date Time Provider Department 08/30/21 [...] 10:33 PM Signed Kentrell Dhaliwal II, MD [address], [address] [place] [address] NOEMI Escobar is a 71 year old [...] [Cefdinir] Diarrhea - Prednisone GI Upset - Zqamhbf-Wgv-Lin Red* Diarrhea - Sulfa (Sulfonamide * Other: See Comments Leg pain Current Outpatient Medications Medication Sig - levothyroxine (SYNTHROID) 50 mcg tablet Take 1 tablet by mouth once daily. - buPROPion XL (WELLBUTRIN XL) 150 mg 24 hr tablet Take 2 tablets by mouth once daily. - ALPRAZolam (XANAX) 1 mg tablet TAKE 1 T (more content not included)... Normal [facility] 08-25-2021 LYDIA Telephone (DONYA) -- ADINA ESCOBAR ([id number]) 1950 F Date Time Provider Department 08/25/21 [...] Diarrhea OMNICEF (CEFDINIR) 06/22/2020 6 - Diarrhea SMHXXVZ-YLY-NTN REDUCTASE INHIBIT*06/22/2020 6 - Diarrhea SULFA (SULFONAMIDE [...] Encounter Status:Closed by JOSEP DREW on 08/25/21 [facility] OBSOLETEon 08-15-2021 OBSOLETE Refill (AGDOVER) -- ADINA ESCOBAR ([id number]) 1950 F Date Time Provider Department 08/15/21 [...] [Levofloxa* Diarrhea - Omnicef [Cefdinir] Diarrhea - Dsgpnpr-Jtq-Ufv Red* Diarrhea - Sulfa (Sulfonamide * Other: See Comments Leg pain (home) [phone] (cell) Last Office Visit Date: 05/24/2021 Last [...] Diarrhea OMNICEF (CEFDINIR) 06/22/2020 6 - Diarrhea SYFSHPO-GHE-SJU REDUCTASE INHIBIT*06/22/2020 6 - Diarrhea SULFA (SULFONAMIDE [...] Status:Closed by KENTRELL DHALIWAL II on 08/16/21 [facility] OBSOLETEon 07-14-2021 OBSOLETE Refill (AGDOVER) -- ADINA ESCOBAR ([id number]) 1950 F Date Time Provider Department 07/14/21 [...] [Levofloxa* Diarrhea - Omnicef [Cefdinir] Diarrhea - Bfdfpna-Lew-Zip Red* Diarrhea - Sulfa (Sulfonamide * Other: See Comments Leg pain (home) [phone] (cell) Last Office Visit Date: 05/24/2021 Last [...] Diarrhea OMNICEF (CEFDINIR) 06/22/2020 6 - Diarrhea GTGKCYW-PBZ-HUN REDUCTASE INHIBIT*06/22/2020 6 - Diarrhea SULFA (SULFONAMIDE [...] Status:Closed by KENTRELL DHALIWAL II on 07/14/21 [facility] OBSOLETEon 07-04-2021 OBSOLETE Refill (ERNESTODOVER) -- ADINA ESCOBAR ([id number]) 1950 F Date Time Provider Department 07/04/21 [...] [Levofloxa* Diarrhea - Omnicef [Cefdinir] Diarrhea - Jsnjvcb-Doc-Ujr Red* Diarrhea - Sulfa (Sulfonamide * Other: See Comments Leg pain (home) [phone] (cell) Last Office Visit Date: 05/24/2021 Last [...] Diarrhea OMNICEF (CEFDINIR) 06/22/2020 6 - Diarrhea XCTPPIY-AVA-CKH REDUCTASE INHIBIT*06/22/2020 6 - Diarrhea SULFA (SULFONAMIDE [...] Status:Closed by KENTRELL DHALIWAL II on 07/04/21 [facility] 06-27-2021 CNPN Telephone (AGDOVER) -- ADINA ESCOBAR ([id number]) 1950 F Date Time Provider Department 06/27/21 [...] Diarrhea OMNICEF (CEFDINIR) 06/22/2020 6 - Diarrhea KMBXRRL-GGS-PPQ REDUCTASE INHIBIT*06/22/2020 6 - Diarrhea SULFA (SULFONAMIDE ANTIBIOTICS) 06/15/2020 14 - Other: See Comments Comments: Leg pain Date Reviewed: 05/24/2021 Reviewed by: Kentrell Dhaliwal II, MD - Fully Assessed Reason for Visit: Patient Question [1477] Order(s):ondansetron (ZOFRAN) 8 mg tabletTake 1 tablet [...] Status:Closed by DENITA THOMAS MA on 06/27/21 [facility] OBSOLETEon 06-15-2021 OBSOLETE Refill (AGDOVER) -- ADINA ESCOBAR ([id number]) 1950 F Date Time Provider Department 06/15/21 [...] [Levofloxa* Diarrhea - Omnicef [Cefdinir] Diarrhea - Czamyfl-Aoh-Siv Red* Diarrhea - Sulfa (Sulfonamide * Other: See Comments Leg pain (home) [phone] (cell) Last Office Visit Date: 05/24/2021 Last [...] Diarrhea OMNICEF (CEFDINIR) 06/22/2020 6 - Diarrhea ETBIDQT-ACX-ZGI REDUCTASE INHIBIT*06/22/2020 6 - Diarrhea SULFA (SULFONAMIDE [...] KENTRELL DHALIWAL II on 06/16/21 [facility] 05-30-2021 LYDIA Telephone (AGDOVER) -- ADINA ESCOBAR ([id number]) 1950 F Date Time Provider Department 05/30/21 SERGIO GOLDMAN, KENTRELL NAQVI During your visit [...] Diarrhea OMNICEF (CEFDINIR) 06/22/2020 6 - Diarrhea YOFMOIK-NWH-XRH REDUCTASE INHIBIT*06/22/2020 6 - Diarrhea SULFA (SULFONAMIDE ANTIBIOTICS) 06/15/2020 14 - Other: See Comments Comments: Leg pain Date Reviewed: 05/24/2021 Reviewed by: Kentrell Dhaliwal II, MD - Fully Assessed Reason for Visit: Patient Question [4969] Order(s):ondansetron orally disintegrating (ZOFRAN ODT) 8 mg [...] Encounter Status:Closed by JOSEP DREW on 05/30/21 [facility] CNOVjuwan 05-24-2021 CNOV Office Visit (MELISSA R) -- ADINA ESCOBAR I ([id number]) 1950 F Date Time Provider Department 05/24/21 [...] your testing is not done at a [facility] facility please provide this office with the results of your testing. Kentrell Dhaliwal II, MD 05/24/2021 8:15 PM Signed Kentrell Dhaliwal II, MD [address], [address] [place] [address] NOEMI Escobar is a 70 year old [...] [Levofloxa* Diarrhea - Omnicef [Cefdinir] Diarrhea - Iltjuzv-Apb-Axv Red* Diarrhea - Sulfa (Sulfonamide * Other: See Comments Leg pain Current Outpatient Medications Medication Sig - gabapentin (NEURONTIN) 300 mg capsule Take 300 mg by mouth three times daily. - escitalopram oxalate (LEXAPRO) 20 mg tablet Take (more content not included)... Normal [facility] OBSOLETEon 05-15-2021 OBSOLETE Refill (AGDOVER) -- ADINA ESCOBAR I ([id number]) 1950 F Date Time Provider Department 05/15/21 [...] [Levofloxa* Diarrhea - Omnicef [Cefdinir] Diarrhea - Kfsynsq-Tzm-Lti Red* Diarrhea - Sulfa (Sulfonamide * Other: See Comments Leg pain (home) [phone] (cell) Last Office Visit Date: 02/16/2021 Last [...] Diarrhea OMNICEF (CEFDINIR) 06/22/2020 6 - Diarrhea FEYEICY-RJL-PVV REDUCTASE INHIBIT*06/22/2020 6 - Diarrhea SULFA (SULFONAMIDE [...] Status:Closed by KENTRELL DHALIWAL II on 05/16/21 [facility] OBSOLETEon 04-18-2021 OBSOLETE Refill (AGDOVER) -- SHAWNADINA I ([id number]) 1950 F Date Time Provider Department 04/18/21 [...] [Levofloxa* Diarrhea - Omnicef [Cefdinir] Diarrhea - Xlgqcfx-Qxx-Jik Red* Diarrhea - Sulfa (Sulfonamide * Other: See Comments Leg pain (home) [phone] (cell) Last Office Visit Date: 02/16/2021 Last [...] [Levofloxa* Diarrhea - Omnicef [Cefdinir] Diarrhea - Bedgqol-Rtm-Dkc Red* Diarrhea - Sulfa (Sulfonamide * Other: See Comments Leg pain (home) [phone] (cell) Last Office Visit Date: 02/16/2021 Last [...] Diarrhea OMNICEF (CEFDINIR) 06/22/2020 6 - Diarrhea HPPXFLB-GUN-FMJ REDUCTASE INHIBIT*06/22/2020 6 - Diarrhea SULFA (SULFONAMIDE [...] DAILY Encounte (more content not included)... Normal [facility] OBSOLETEon 03-16-2021 OBSOLETE Refill (AGDOVER) -- SHAWNAIDNA I ([id number]) 1950 F Date Time Provider Department 03/16/21 [...] [Levofloxa* Diarrhea - Omnicef [Cefdinir] Diarrhea - Jlunoef-Cct-Qlt Red* Diarrhea - Sulfa (Sulfonamide * Other: See Comments Leg pain (home) [phone] (cell) Last Office Visit Date: 02/16/2021 Last [...] Diarrhea OMNICEF (CEFDINIR) 06/22/2020 6 - Diarrhea XVCRKTQ-CBH-HHG REDUCTASE INHIBIT*06/22/2020 6 - Diarrhea SULFA (SULFONAMIDE [...] Status:Closed by KENTRELL DHALIWAL II on 03/17/21 [facility] SURGICAL PATHOLOGY, NATY Leahy 03-03-2005 [facility] Vital Signs Date Time Vital Sign Value Performing Clinician Facility 04-12-2025 20:00-0400 Body temperature 98.2 [degF] Dr. Kentrell Dhaliwal MD Work Phone: [facility] 04-12-2025 20:00-0400 Diastolic blood pressure 72 mm[Hg] Dr. Kentrell Dhaliwal MD Work Phone: 0(409)[phone] [place] [address] 04-12-2025 20:00-0400 Heart rate 64 /min Dr. Kentrell Dhaliwal MD Work Phone: 8(820)[phone] [place] [address] 04-12-2025 20:00-0400 Respiratory rate 17 /min Dr. Kentrell Dhaliwal MD Work Phone: [facility] 04-12-2025 20:00-0400 SaO2% (BldA) [Mass fraction] 100 % Dr. Kentrell Dhaliwal MD Work Phone: [facility] 04-12-2025 20:00-0400 Systolic blood pressure 140 mm[Hg] Dr. Kentrell Dhaliwal MD Work Phone: [facility] 04-12-2025 17:09-0400 Body height 154.[address] Kentrell Dhaliwal MD Work Phone: [facility] 04-12-2025 17:09-0400 Body mass index (BMI) [Ratio] 28.9 kg/m2 Dr. Kentrell Dhaliwal MD Work Phone: [facility] 04-12-2025 17:09-0400 Body weight 69.[address] Kentrell Dhaliwal MD Work Phone: [facility] 03-05-2025 13:11-0400 Body height 154.9 cm Kentrell Dhaliwal II, MD Work Phone: [facility] 03-05-2025 13:11-0400 Body mass index (BMI) [Ratio] 27.21 kg/m2 Kentrell Dhaliwal II, MD Work Phone: [facility] 03-05-2025 13:11-0400 Body temperature 97.5 [degF] Kentrell Dhaliwal II, MD Work Phone: [facility] 03-05-2025 13:11-0400 Body weight 65.32 kg Kentrell Dhaliwal II, MD Work Phone: [facility] 03-05-2025 13:11-0400 Diastolic blood pressure 70 mm[Hg] Kentrell Dhaliwal II, MD Work Phone: [facility] 03-05-2025 13:11-0400 Heart rate 72 /min Kentrell Dhaliwal II, MD Work Phone: [facility] 03-05-2025 13:11-0400 Respiratory rate 14 /min Kentrell Dhaliwal II, MD Work Phone: [facility] 03-05-2025 13:11-0400 SaO2% (BldA) [Mass fraction] 94 % Kentrell Dhaliwal II, MD Work Phone: [facility] 03-05-2025 13:11-0400 Systolic blood pressure 122 mm[Hg] Kentrell Dhaliwal II, MD Work Phone: [facility] 09-26-2024 14:07-0500 Body height 154.9 cm Kentrell Dhaliwal II, MD Work Phone: [facility] 09-26-2024 14:07-0500 Body mass index (BMI) [Ratio] 26.38 kg/m2 Kentrell Dhaliwal II, MD Work Phone: [facility] 09-26-2024 14:07-0500 Body temperature 98.71 [degF] Kentrell Dhaliwal II, MD Work Phone: [facility] 09-26-2024 14:07-0500 Body weight 63.32 kg Kentrell Dhaliwal II, MD Work Phone: [facility] 09-26-2024 14:07-0500 Diastolic blood pressure 82 mm[Hg] Kentrell Dhaliwal II, MD Work Phone: [facility] 09-26-2024 14:07-0500 Heart rate 81 /min Kentrell Dhaliwal II, MD Work Phone: [facility] 09-26-2024 14:07-0500 Respiratory rate 24 /min Kentrell Dhaliwal II, MD Work Phone: [facility] 09-26-2024 14:07-0500 SaO2% (BldA) [Mass fraction] 100 % Kentrell Dhaliwal II, MD Work Phone: [facility] 09-26-2024 14:07-0500 Systolic blood pressure 126 mm[Hg] Kentrell Dhaliwal II, MD Work Phone: [facility] 09-03-2024 16:10-0500 Diastolic blood pressure 80 mm[Hg] Kentrell Dhaliwal II, MD Work Phone: [facility] 09-03-2024 16:10-0500 Systolic blood pressure 150 mm[Hg] Kentrell Dhaliwal II, MD Work Phone: [facility] 09-03-2024 16:01-0500 Body height 154.9 cm Kentrell Dhaliwal II, MD Work Phone: [facility] 09-03-2024 16:01-0500 Body mass index (BMI) [Ratio] 29.1 kg/m2 Kentrell Dhaliwal II, MD Work Phone: [facility] 09-03-2024 16:01-0500 Body weight 69.85 kg Kentrell Dhaliwal II, MD Work Phone: [facility] 09-03-2024 16:01-0500 Heart rate 83 /min Kentrell Dhaliwal II, MD Work Phone: [facility] 09-03-2024 16:01-0500 SaO2% (BldA) [Mass fraction] 97 % Kentrell Dhaliwal II, MD Work Phone: [facility] 07-04-2024 14:59-0400 Body height 154.9 cm Kentrell Dhaliwal II, MD Work Phone: [facility] 07-04-2024 14:59-0400 Body mass index (BMI) [Ratio] 25.17 kg/m2 Kentrell Dhaliwal II, MD Work Phone: [facility] 07-04-2024 14:59-0400 Body temperature 97.3 [degF] Kentrell Dhaliwal II, MD Work Phone: [facility] 07-04-2024 14:59-0400 Body weight 60.42 kg Kentrell Dhaliwal II, MD Work Phone: [facility] 07-04-2024 14:59-0400 Diastolic blood pressure 72 mm[Hg] Kentrell Dhaliwal II, MD Work Phone: [facility] 07-04-2024 14:59-0400 Heart rate 66 /min Kentrell Dhaliwal II, MD Work Phone: [facility] 07-04-2024 14:59-0400 Respiratory rate 16 /min Kentrell Dhaliwal II, MD Work Phone: [facility] 07-04-2024 14:59-0400 SaO2% (BldA) [Mass fraction] 99 % Kentrell Dhaliwal II, MD Work Phone: [facility] 07-04-2024 14:59-0400 Systolic blood pressure 138 mm[Hg] Kentrell Dhaliwal II, MD Work Phone: [facility] 06-11-2024 09:52-0400 Body height 154.9 cm Kentrell Dhaliwal II, MD Work Phone: [facility] 06-11-2024 09:52-0400 Body mass index (BMI) [Ratio] 24.07 kg/m2 Kentrell Dhaliwal II, MD Work Phone: [facility] 06-11-2024 09:52-0400 Body temperature 97.3 [degF] Kentrell Dhaliwal II, MD Work Phone: [facility] 06-11-2024 09:52-0400 Body weight 57.79 kg Kentrell Dhaliwal II, MD Work Phone: [facility] 06-11-2024 09:52-0400 Diastolic blood pressure 80 mm[Hg] Kentrell Dhaliwal II, MD Work Phone: [facility] 06-11-2024 09:52-0400 Heart rate 90 /min Kentrell Dhaliwal II, MD Work Phone: [facility] 06-11-2024 09:52-0400 SaO2% (BldA) [Mass fraction] 99 % Kentrell Dhaliwal II, MD Work Phone: [facility] 06-11-2024 09:52-0400 Systolic blood pressure 158 mm[Hg] Kentrell Dhaliwal II, MD Work Phone: [facility] 01-02-2024 15:09-0400 Body height 154.9 cm Kentrell Dhaliwal II, MD Work Phone: [facility] 01-02-2024 15:09-0400 Body mass index (BMI) [Ratio] 22.11 kg/m2 Kentrell Dhaliwal II, MD Work Phone: [facility] 01-02-2024 15:09-0400 Body temperature 98.2 [degF] Kentrell Dhaliwal II, MD Work Phone: [facility] 01-02-2024 15:09-0400 Body weight 53.07 kg Kentrell Dhaliwal II, MD Work Phone: [facility] 01-02-2024 15:09-0400 Diastolic blood pressure 64 mm[Hg] Kentrell Dhaliwal II, MD Work Phone: [facility] 01-02-2024 15:09-0400 Heart rate 77 /min Kentrell Dhaliwal II, MD Work Phone: [facility] 01-02-2024 15:09-0400 Respiratory rate 12 /min Kentrell Dhaliwal II, MD Work Phone: [facility] 01-02-2024 15:09-0400 SaO2% (BldA) [Mass fraction] 100 % Kentrell Dhaliwal II, MD Work Phone: [facility] 01-02-2024 15:09-0400 Systolic blood pressure 118 mm[Hg] Kentrell Dhaliwal II, MD Work Phone: [facility] 12-13-2023 13:34-0400 Body temperature 97.2 [degF] Dr. Kentrell Dhaliwal Work Phone: [facility] 12-13-2023 13:34-0400 Diastolic blood pressure 73 mm[Hg] Dr. Kentrell Dhaliwal Work Phone: [facility] 12-13-2023 13:34-0400 Heart rate 62 /min Dr. Kentrell Dhaliwal Work Phone: [facility] 12-13-2023 13:34-0400 Respiratory rate 14 /min Dr. Kentrell Dhaliwal Work Phone: [facility] 12-13-2023 13:34-0400 SaO2% (BldA) [Mass fraction] 100 % Dr. Kentrell Dhaliwal Work Phone: [facility] 12-13-2023 13:34-0400 Systolic blood pressure 129 mm[Hg] Dr. Kentrell Dhaliwal Work Phone: [facility] 12-13-2023 10:19-0400 Body height 154.[address] Kentrell Dhaliwal Work Phone: [facility] 12-13-2023 10:19-0400 Body mass index (BMI) [Ratio] 24 kg/m2 Dr. Kentrell Dhaliwal Work Phone: [facility] 12-13-2023 10:19-0400 Body weight 57.[address] Kentrell Dhaliwal Work Phone: [facility] 12-11-2023 11:32-0400 Body temperature 98.1 [degF] Dr. Kentrell Dhaliwal Work Phone: [facility] 12-11-2023 11:32-0400 Diastolic blood pressure 79 mm[Hg] Dr. Kentrell Dhaliwal Work Phone: [facility] 12-11-2023 11:32-0400 Heart rate 73 /min Dr. Kentrell Dhaliwal Work Phone: [facility] 12-11-2023 11:32-0400 Respiratory rate 16 /min Dr. Kentrell Dhaliwal Work Phone: [facility] 12-11-2023 11:32-0400 SaO2% (BldA) [Mass fraction] 98 % Dr. Kentrell Dhaliwal Work Phone: [facility] 12-11-2023 11:32-0400 Systolic blood pressure 130 mm[Hg] Dr. Kentrell Dhaliwal Work Phone: [facility] 12-11-2023 11:19-0400 Body height 154.[address] Kentrell Dhaliwal Work Phone: [facility] 12-11-2023 11:19-0400 Body weight 54.[address] Kentrell Dhaliwal Work Phone: [facility] 12-11-2023 02:23-0400 Body mass index (BMI) [Ratio] 22.6 kg/m2 Dr. Kentrell Dhaliwal Work Phone: [facility] 12-07-2023 00:40-0400 Body temperature 97.9 [degF] Dr. Kentrell Dhaliwal Work Phone: [facility] 12-07-2023 00:40-0400 Diastolic blood pressure 90 mm[Hg] Dr. Kentrell Dhaliwal Work Phone: [facility] 12-07-2023 00:40-0400 Heart rate 86 /min Dr. Kentrell Dhaliwal Work Phone: [facility] 12-07-2023 00:40-0400 Respiratory rate 26 /min Dr. Kentrell Dhaliwal Work Phone: [facility] 12-07-2023 00:40-0400 SaO2% (BldA) [Mass fraction] 100 % Dr. Kentrell Dhaliwal Work Phone: [facility] 12-07-2023 00:40-0400 Systolic blood pressure 149 mm[Hg] Dr. Kentrell Dhaliwal Work Phone: [facility] 12-06-2023 15:33-0400 Body height 154.[address] Kentrell Dhaliwal Work Phone: [facility] 12-06-2023 15:33-0400 Body mass index (BMI) [Ratio] 22.1 kg/m2 Dr. Kentrell Dhaliwal Work Phone: [facility] 12-06-2023 15:33-0400 Body weight 53.[address] Kentrell Dhaliwal Work Phone: [facility] 07-24-2023 14:06-0500 Body height 154.9 cm Kentrell Dhaliwal II, MD Work Phone: [facility] 07-24-2023 14:06-0500 Body temperature 97.5 [degF] Kentrell Dhaliwal II, MD Work Phone: [facility] 07-24-2023 14:06-0500 Body weight 54.43 kg Kentrell Dhaliwal II, MD Work Phone: [facility] 07-24-2023 14:06-0500 Diastolic blood pressure 76 mm[Hg] Kentrell Dhaliwal II, MD Work Phone: [facility] 07-24-2023 14:06-0500 Heart rate 80 /min Kentrell Dhaliwal II, MD Work Phone: [facility] 07-24-2023 14:06-0500 Respiratory rate 16 /min Kentrell Dhaliwal II, MD Work Phone: [facility] 07-24-2023 14:06-0500 SaO2% (BldA) [Mass fraction] 98 % Kentrell Dhaliwal II, MD Work Phone: [facility] 07-24-2023 14:06-0500 Systolic blood pressure 114 mm[Hg] Kentrell Dhaliwal II, MD Work Phone: [facility] 04-18-2023 14:38-0400 Body height 154.9 cm Kentrell Dhaliwal II, MD Work Phone: [facility] 04-18-2023 14:38-0400 Body temperature 97 [degF] Kentrell Dhaliwal II, MD Work Phone: [facility] 04-18-2023 14:38-0400 Body weight 54.16 kg Kentrell Dhaliwal II, MD Work Phone: [facility] 04-18-2023 14:38-0400 Diastolic blood pressure 88 mm[Hg] Kentrell Dhaliwal II, MD Work Phone: [facility] 04-18-2023 14:38-0400 Heart rate 57 /min Kentrell Dhaliwal II, MD Work Phone: [facility] 04-18-2023 14:38-0400 Respiratory rate 12 /min Kentrell Dhaliwal II, MD Work Phone: [facility] 04-18-2023 14:38-0400 SaO2% (BldA) [Mass fraction] 99 % Kentrell Dhaliwal II, MD Work Phone: [facility] 04-18-2023 14:38-0400 Systolic blood pressure 128 mm[Hg] Kentrell Dhaliwal II, MD Work Phone: [facility] 04-01-2023 13:44-0400 Diastolic blood pressure 96 mm[Hg] Dr. Jose Stanton Work Phone: [facility] 04-01-2023 13:44-0400 Heart rate 98 /min Dr. Jose Stanton Work Phone: [facility] 04-01-2023 13:44-0400 Respiratory rate 22 /min Dr. Jose Stanton Work Phone: [facility] 04-01-2023 13:44-0400 SaO2% (BldA) [Mass fraction] 99 % Dr. Jose Stanton Work Phone: [facility] 04-01-2023 13:44-0400 Systolic blood pressure 160 mm[Hg] Dr. Jose Stanton Work Phone: [facility] 03-31-2023 22:58-0400 Body mass index (BMI) [Ratio] 24.1 kg/m2 Dr. Jose Stanton Work Phone: [facility] 03-31-2023 22:58-0400 Body weight [address] Jose Stanton Work Phone: [facility] 03-31-2023 22:22-0400 Body height 154.[address] Jose Stanton Work Phone: [facility] 03-31-2023 22:22-0400 Body temperature 96.6 [degF] Dr. Jose Stanton Work Phone: 6(270)877-660772 [place] [address] 03-18-2023 15:15-0400 Body temperature 98 [degF] Dr. Jose Stanton Work Phone: 6(037)204-508772 [place] [address] 03-18-2023 15:15-0400 Diastolic blood pressure 88 mm[Hg] Dr. Jose Stanton Work Phone: 4(646)281-976572 [place] [address] 03-18-2023 15:15-0400 Heart rate 78 /min Dr. Jose Stanton Work Phone: 1(326)934-497872 [place] [address] 03-18-2023 15:15-0400 Respiratory rate 18 /min Dr. Jose Stanton Work Phone: 7(954)694-606172 [place] [address] 03-18-2023 15:15-0400 SaO2% (BldA) [Mass fraction] 100 % Dr. Jose Stanton Work Phone: 9(691)[phone] [place] [address] 03-18-2023 15:15-0400 Systolic blood pressure 168 mm[Hg] Dr. Jose Stanton Work Phone: 1(083)083-036272 [place] [address] 03-18-2023 06:00-0400 Body mass index (BMI) [Ratio] 22.5 kg/m2 Dr. Jose Stanton Work Phone: 7(198)079-739272 [place] [address] 03-18-2023 06:00-0400 Body weight 54.[address] Jose Stanton Work Phone: 4(731)[phone] [address] [place] [place] [address] 03-16-2023 15:07-0400 Body height 154.[address] Jose Stanton Work Phone: [phone] [place] [address] 03-16-2023 06:45-0400 Body temperature 97.6 [degF] Dr. Jose Stanton Work Phone: [phone] [place] [address] 03-16-2023 06:45-0400 Diastolic blood pressure 112 mm[Hg] Dr. Jose Stanton Work Phone: [phone] [place] [address] 03-16-2023 06:45-0400 Heart rate 85 /min Dr. Jose Stanton Work Phone: [phone] [place] [address] 03-16-2023 06:45-0400 Respiratory rate 18 /min Dr. Jose Stanton Work Phone: [facility] 03-16-2023 06:45-0400 SaO2% (BldA) [Mass fraction] 99 % Dr. Jose Stanton Work Phone: [facility] 03-16-2023 06:45-0400 Systolic blood pressure 153 mm[Hg] Dr. Jose Stanton Work Phone: [facility] 03-16-2023 03:35-0400 Body height 154.[address] Jsoe Stanton Work Phone: [facility] 03-16-2023 03:35-0400 Body mass index (BMI) [Ratio] 23.4 kg/m2 Dr. Jose Stanton Work Phone: [facility] 03-16-2023 03:35-0400 Body weight 56.[address] Jose Stanotn Work Phone: [facility] 12-12-2022 00:08-0400 Diastolic blood pressure 67 mm[Hg] [facility] 12-12-2022 00:08-0400 Heart rate 81 /min [facility] 12-12-2022 00:08-0400 Respiratory rate 18 /min [facility] 12-12-2022 00:08-0400 SaO2% (BldA) [Mass fraction] 98 % [facility] 12-12-2022 00:08-0400 Systolic blood pressure 154 mm[Hg] [facility] 12-11-2022 22:35-0400 Body temperature 98 [degF] [facility] 12-11-2022 21:50-0400 Body mass index (BMI) [Ratio] 24.5 kg/m2 [facility] 12-11-2022 21:50-0400 Body weight 60.7 kg [facility] 12-11-2022 20:26-0400 Body height 157.48 cm [facility] 11-23-2022 10:53-0500 Body height 154.9 cm Kentrell Dhaliwal II, MD Work Phone: [facility] 11-23-2022 10:53-0500 Body temperature 97.59 [degF] Kentrell Dhaliwal II, MD Work Phone: [facility] 11-23-2022 10:53-0500 Body weight 61.69 kg Kentrell Dhaliwal II, MD Work Phone: [facility] 11-23-2022 10:53-0500 Diastolic blood pressure 88 mm[Hg] Kentrell Dhaliwal II, MD Work Phone: [facility] 11-23-2022 10:53-0500 Heart rate 75 /min Kentrell Dhaliwal II, MD Work Phone: [facility] 11-23-2022 10:53-0500 Respiratory rate 12 /min Kentrell Dhaliwal II, MD Work Phone: [facility] 11-23-2022 10:53-0500 SaO2% (BldA) [Mass fraction] 96 % Kentrell Dhaliwal II, MD Work Phone: [facility] 11-23-2022 10:53-0500 Systolic blood pressure 122 mm[Hg] Kentrell Dhaliwal II, MD Work Phone: [facility] 07-21-2022 14:06-0400 Body height 154.9 cm Travon Umbel DO Work Phone: [facility] 07-21-2022 14:06-0400 Body temperature 97.5 [degF] Travon Umbel DO Work Phone: [facility] 07-21-2022 14:06-0400 Body weight 65.77 kg Travon Umbel DO Work Phone: [facility] 07-21-2022 14:06-0400 Diastolic blood pressure 152 mm[Hg] Travon Umbel DO Work Phone: [facility] 07-21-2022 14:06-0400 Heart rate 84 /min Travon Umbel DO Work Phone: [facility] 07-21-2022 14:06-0400 SaO2% (BldA) [Mass fraction] 100 % Travon Umbel DO Work Phone: [facility] 07-21-2022 14:06-0400 Systolic blood pressure 188 mm[Hg] Travon Rene DO Work Phone: [facility] 05-30-2022 10:24-0400 Body height 154.9 cm Kentrell Dhaliwal II, MD Work Phone: [facility] 05-30-2022 10:24-0400 Body temperature 97.2 [degF] Kentrell Dhaliwal II, MD Work Phone: [facility] 05-30-2022 10:24-0400 Body weight 68.22 kg Kentrell Dhaliwal II, MD Work Phone: [facility] 05-30-2022 10:24-0400 Diastolic blood pressure 78 mm[Hg] Kentrell Dhaliwal II, MD Work Phone: [facility] 05-30-2022 10:24-0400 Heart rate 80 /min Kentrell Dhaliwal II, MD Work Phone: [facility] 05-30-2022 10:24-0400 Respiratory rate 12 /min Kentrell Dhaliwal II, MD Work Phone: [facility] 05-30-2022 10:24-0400 SaO2% (BldA) [Mass fraction] 99 % Kentrell Dhaliwal II, MD Work Phone: [facility] 05-30-2022 10:24-0400 Systolic blood pressure 118 mm[Hg] Kentrell Dhaliwal II, MD Work Phone: [facility] 04-19-2022 13:08-0400 Body height 154.9 cm Kentrell Dhaliwal II, MD Work Phone: [facility] 04-19-2022 13:08-0400 Body temperature 96.49 [degF] Kentrell Dhaliwal II, MD Work Phone: [facility] 04-19-2022 13:08-0400 Body weight 69.58 kg Kentrell Dhaliwal II, MD Work Phone: [facility] 04-19-2022 13:08-0400 Diastolic blood pressure 82 mm[Hg] Kentrell Dhaliwal II, MD Work Phone: [facility] 04-19-2022 13:08-0400 Heart rate 88 /min Kentrell Dhaliwal II, MD Work Phone: [facility] 04-19-2022 13:08-0400 Respiratory rate 12 /min Kentrell Dhaliwal II, MD Work Phone: [facility] 04-19-2022 13:08-0400 SaO2% (BldA) [Mass fraction] 98 % Kentrell Dhaliwal II, MD Work Phone: [facility] 04-19-2022 13:08-0400 Systolic blood pressure 128 mm[Hg] Kentrell Dhaliwal II, MD Work Phone: [facility] 02-28-2022 14:25-0400 Body weight 74.07 kg Kentrell Dhaliwal II, MD Work Phone: [facility] 02-28-2022 14:25-0400 Diastolic blood pressure 78 mm[Hg] Kentrell Dhaliwal II, MD Work Phone: [facility] 02-28-2022 14:25-0400 Respiratory rate 14 /min Kentrell Dhaliwal II, MD Work Phone: [facility] 02-28-2022 14:25-0400 SaO2% (BldA) [Mass fraction] 98 % Kentrell Dhaliwal II, MD Work Phone: [facility] 02-28-2022 14:25-0400 Systolic blood pressure 110 mm[Hg] Kentrell Dhaliwal II, MD Work Phone: [facility] 01-17-2022 12:55-0400 Body height 154.9 cm Jaswant Moseley MD Work Phone: [facility] 01-17-2022 12:55-0400 Body weight 78.93 kg Jaswant Moseley MD Work Phone: [facility] 01-17-2022 12:55-0400 Diastolic blood pressure 70 mm[Hg] Jaswant Moseley MD Work Phone: [facility] 01-17-2022 12:55-0400 Heart rate 67 /min Jaswant Moseley MD Work Phone: [facility] 01-17-2022 12:55-0400 Systolic blood pressure 120 mm[Hg] Jaswant Moseley MD Work Phone: [facility] 12-27-2021 14:01-0400 Body height 154.9 cm Jaswant Moseley MD Work Phone: [facility] 12-27-2021 14:01-0400 Body weight 82.1 kg Jaswant Moseley MD Work Phone: [facility] 12-14-2021 11:00-0400 Body height 154.9 cm Rosanna Lilly DO Work Phone: [facility] 12-14-2021 11:00-0400 Body weight 82.1 kg Rosanna Meiantwon DO Work Phone: [facility] Encounters Encounter Date Encounter Type Care Provider Facility Start: 04-12-2025 Evaluation and management of inpatient Dr. Mike Queen DO -Medical Surgical 3 Work Phone: Start: 04-12-2025 ambulatory Kentrell Dhaliwal Facility :[facility] [place] Start: 04-12-2025 Non-patient / Non-visit Dr. Mike roberts DO [facility] Work Phone: Start: 03-31-2025 End: 03-31-2025 Refill Kentrell Dhaliwal MD Work Phone: [facility] Comment on above: Refill Request Start: 03-30-2025 End: 03-30-2025 ambulatory KENTRELL DHALIWAL II Facility:[facility] Start: 03-13-2025 End: 03-13-[facility] Start: 03-13-2025 End: 03-13-2025 [facility] Comment on above: Population Health Na [facility] Start: 03-05-2025 End: 03-05-2025 Patient encounter procedure Kentrell Dhaliwal MD Work Phone: [facility] Comment on above: Vertigo (Primary Dx) ; Anxiety and depression; CHAVARRIA (dyspnea on exertion); Palpitations; Gastroesophageal reflux disease, unspecified whether esophagitis present; Hypothyroidism, acquired; Iron deficiency anemia, unspecified iron deficiency anemia type; Drug-induced Parkinson's disease (HCC); Irritable bowel syndrome with both constipation and diarrhea Start: 03-05-2025 End: 03-05-2025 ambulatory KENTRELL DHALIWAL II Facility:[id number] Start: 03-03-2025 End: 03-03-2025 Refill Kentrell Dhaliwal MD Work Phone: [facility] Comment on above: Refill Request Start: 03-02-2025 End: 03-02-2025 ambulatory Kentrell Dhaliwal II, MD Work Phone: [facility] Start: 03-02-2025 End: 03-02-2025 Patient encounter procedure Kentrell Dhaliwal MD Work Phone: [facility] Comment on above: palpiptations Start: 03-02-2025 End: 03-02-2025 Telephone encounter Kentrell Dhaliwal MD Work Phone: [facility] Comment on above: Results Start: 02-26-2025 End: 02-27-2025 Follow-up encounter Kentrell Dhaliwal MD Work Phone: [facility] Start: 02-26-2025 End: 02-26-2025 Telephone encounter Kentrell Dhaliwal MD Work Phone: [facility] Comment on above: Patient Question Start: 02-26-2025 End: 02-26-2025 ambulatory KENTRELL DHALIWAL II Facility:[facility] Start: 02-18-2025 End: 02-18-2025 Refill Kentrell Dhaliwal MD Work Phone: [facility] Comment on above: Refill Request Start: 01-29-2025 End: 01-29-2025 Telephone encounter Kentrell Dhaliwal MD Work Phone: [facility] Comment on above: Medication Request Start: 01-08-2025 End: 01-08-2025 ambulatory KENTRELL DHALIWAL II Facility:[id number] Start: 01-01-2025 End: 01-02-2025 Refill Kentrell Dhaliwal MD Work Phone: [facility] Comment on above: Refill Request Start: 12-25-2024 End: 12-25-2024 Refill Kentrell Dhaliwal MD Work Phone: [facility] Comment on above: Refill Request Start: 12-09-2024 End: 12-09-2024 Refill Kentrell Dhaliwal MD Work Phone: [facility] Comment on above: Refill Request Start: 12-09-2024 End: 12-09-2024 Refill Kenrtell Dhaliwal MD Work Phone: [facility] Comment on above: Refill Request Start: 12-08-2024 End: 12-10-2024 Telephone encounter Kentrell Dhaliwal MD Work Phone: [facility] Comment on above: Refill Request Start: 11-28-2024 End: 11-28-2024 Telephone encounter Kentrell Dhaliwal MD Work Phone: [facility] Comment on above: Appointment Start: 11-24-2024 End: 11-24-2024 Refill Kentrell Dhaliwal MD Work Phone: [facility] Comment on above: Refill Request Start: 11-10-2024 End: 11-10-2024 Refill Kentrell Dhaliwal MD Work Phone: [facility] Comment on above: Refill Request Start: 10-28-2024 End: 10-28-2024 Refill Kentrell Dhaliwal MD Work Phone: [facility] Comment on above: Refill Request Start: 10-17-2024 End: 10-17-2024 ambulatory Gertrude Mccloud RN Work Phone: [facility] Start: 10-17-2024 End: 10-17-2024 Patient encounter procedure Gertrude Mccloud RN Work Phone: [facility] Comment on above: Transition Of Care rebecca phone contact for Transitional Care Management Start: 10-15-2024 End: 10-15-2024 Refill Kentrell Dhaliwal MD Work Phone: [facility] Comment on above: Refill Request Start: 10-07-2024 End: 10-07-2024 Refill Kentrell Dhaliwal MD Work Phone: [facility] Comment on above: Refill Request Start: 09-27-2024 End: 09-29-2024 Refill Kentrell Dhaliwal MD Work Phone: [facility] Comment on above: Refill Request Start: 09-26-2024 End: 09-26-2024 Patient encounter procedure Kentrell Dhaliwal MD Work Phone: [facility] Comment on above: Generalized abdomina l pain (Primary Dx); Gastroesophageal reflux disease, unspecified whether esophagitis present; SOB (shortness of breath); Anxiety and depression; Elevated blood pressure reading without diagnosis of hypertension Start: 09-26-2024 End: 09-26-2024 ambulatory KENTRELL DHALIWAL II Facility:[id number] Start: 09-18-2024 End: 09-18-2024 Patient Outreach Gertrude Mccloud RN Work Phone: [facility] Comment on above: Transition Of Care I nitial phone contact for Transitional Care Management Start: 09-14-2024 ambulatory Paulo Umanzor Facility: [facility] [place] Start: 09-14-2024 End: 09-17-2024 Evaluation and management of inpatient Kentrell Dhaliwal Facility:[facility] Start: 09-11-2024 End: 09-12-2024 Telephone encounter Kentrell Dhaliwal MD Work Phone: [facility] Comment on above: Ear Pain Start: 09-09-2024 End: 09-12-2024 Refill Kentrell Dhaliwal MD Work Phone: [facility] Comment on above: Refill Request Start: 09-03-2024 End: 09-03-2024 Patient encounter procedure Kentrell Dhaliwal MD Work Phone: [facility] Comment on above: Gastroesophageal ref lux disease, unspecified whether esophagitis present (Primary Dx); Generalized abdominal pain; Anxiety and depression; Hypothyroidism, acquired; Elevated blood pressure reading without diagnosis of hypertension Start: 09-03-2024 End: 09-03-2024 ambulatory KENTRELL DHALIWAL II Facility:[id number] Start: 08-28-2024 End: 08-29-2024 Telephone encounter Kentrell Dhaliwal MD Work Phone: [facility] Start: 08-19-2024 End: 08-19-2024 Telephone encounter Kentrell Dhaliwal MD Work Phone: [facility] Start: 08-12-2024 End: 08-13-2024 Telephone encounter Kentrell Dhaliwal MD Work Phone: [facility] Comment on above: Patient Question Start: 08-11-2024 End: 08-11-2024 Telephone encounter Kentrell Dhaliwal MD Work Phone: [facility] Comment on above: Patient Question Start: 08-01-2024 End: 08-01-2024 Emergency department patient visit Kentrell Dhaliwal Facility:[facility] Start: 07-30-2024 End: 07-30-2024 Telephone encounter Kentrell Dhaliwal MD Work Phone: [facility] Start: 07-29-2024 End: 07-29-2024 Refill Kentrell Dhaliwal MD Work Phone: [facility] Comment on above: Refill Request Start: 07-04-2024 End: 07-04-2024 Patient encounter procedure Kentrell Dhaliwal MD Work Phone: [facility] Comment on above: Acute otitis media, left (Primary Dx); Acute otitis externa of left ear, unspecified type Start: 07-04-2024 End: 07-04-2024 ambulatory KENTRELL DHALIWAL II Facility:[id number] Start: 07-04-2024 End: 07-04-2024 Refill Kentrell Dhaliwal MD Work Phone: [facility] Comment on above: Refill Request Start: 07-01-2024 End: 07-02-2024 Refill Kentrell Dhaliwal MD Work Phone: [facility] Comment on above: Refill Request Start: 06-30-2024 End: 06-30-2024 Refill Kentrell Dhaliwal MD Work Phone: [facility] Comment on above: Refill Request Start: 06-30-2024 End: 06-30-2024 Refill Kentrell Dhaliwal MD Work Phone: [facility] Comment on above: Refill Request Start: 06-25-2024 End: 07-01-2024 Telephone encounter Kentrell Dhaliwal MD Work Phone: [facility] Comment on above: Medication Question Start: 06-14-2024 End: 06-16-2024 Refill Kentrell Dhaliwal MD Work Phone: [facility] Comment on above: Refill Request Start: 06-13-2024 End: 06-13-2024 Telephone encounter Kentrell Dhaliwal MD Work Phone: [facility] Comment on above: Results Start: 06-11-2024 End: 06-11-2024 ambulatory KENTRELL TRE DHALIWAL II Facility:[id number] Start: 06-11-2024 End: 06-11-2024 Patient encounter procedure Kentrell Dhaliwal MD Work Phone: [facility] Comment on above: Gastroesophageal ref lux disease, unspecified whether esophagitis present (Primary Dx); Anxiety and depression; Chronic insomnia; Hypothyroidism, acquired; Iron deficiency anemia, unspecified iron deficiency anemia type; Nausea; Vitamin D deficiency Start: 06-11-2024 End: 06-11-2024 ambulatory KENTRELL TRE DHALIWAL II Facility:[id number] Start: 05-30-2024 End: 05-30-2024 Refill Kentrell Dhaliwal MD Work Phone: [facility] Comment on above: Refill Request Start: 05-28-2024 End: 05-29-2024 Refill Kentrell Dhaliwal MD Work Phone: [facility] Comment on above: Refill Request Start: 05-07-2024 End: 05-07-2024 Telephone encounter Kentrell Dhaliwal MD Work Phone: [facility] Comment on above: requesting call back Start: 05-01-2024 Refill Kentrell gould MD Work Phone: [facility] Comment on above: Refill Request Start: 04-14-2024 Refill Kentrell gould MD Work Phone: [facility] Comment on above: Refill Request Start: 04-05-2024 Refill Kentrell gould MD Work Phone: [facility] Comment on above: Refill Request Start: 04-01-2024 Refill Kentrell gould MD Work Phone: [facility] Comment on above: Refill Request Start: 03-17-2024 Refill Kentrell gould MD Work Phone: [facility] Comment on above: Refill Request Start: 03-03-2024 Refill Kentrell gould MD Work Phone: [facility] Comment on above: Refill Request Start: 02-01-2024 Refill Kentrell gould MD Work Phone: [facility] Comment on above: Refill Request Start: 01-15-2024 Refill Kentrell gould MD Work Phone: [facility] Comment on above: Refill Request Start: 01-02-2024 End: 01-02-2024 Patient encounter procedure Kentrell Dhaliwal MD Work Phone: [facility] Comment on above: Gastroesophageal ref lux disease, unspecified whether esophagitis present (Primary Dx); Nausea; Anxiety and depression; Diarrhea, unspecified type; Generalized weakness; Hypothyroidism, acquired; Iron deficiency anemia, unspecified iron deficiency anemia type Start: 12-17-2023 Telephone encounter Kentrell Dhaliwal MD Work Phone: [facility] Comment on above: patient requesting c all back ; Patient Question Start: 12-13-2023 End: 12-13-2023 Emergency department patient visit Dr. Kentrell Dhaliwal Work Phone: [facility] Work Phone: Start: 12-11-2023 Non-patient / Non-visit Dr. India Dhaliwal Work Phone: [facility] Work Phone: Start: 12-11-2023 Non-patient / Non-visit Dr. India Dhaliwal Work Phone: [facility] Start: 12-10-2023 Non-patient / Non-visit Dr. India Dhaliwal Work Phone: [facility] Start: 12-10-2023 Non-patient / Non-visit Dr. India Dhaliwal Work Phone: [facility] Work Phone: Start: 12-09-2023 Non-patient / Non-visit Dr. India Dhaliwal Work Phone: [facility] Work Phone: Start: 12-09-2023 Non-patient / Non-visit Dr. India Dhaliwal Work Phone: [facility] Start: 12-08-2023 Non-patient / Non-visit Dr. India Dhaliwal Work Phone: [facility] Work Phone: Start: 12-08-2023 Non-patient / Non-visit Dr. India Dhaliwal Work Phone: [facility] Start: 12-07-2023 Non-patient / Non-visit Dr. India Dhaliwal Work Phone: [facility] Start: 12-07-2023 Non-patient / Non-visit Dr. India Dhaliwal Work Phone: [facility] Work Phone: Start: 12-07-2023 End: 12-11-2023 Evaluation and management of inpatient Dr. Kentrell Dhaliwal Work Phone: [facility] Work Phone: Start: 12-06-2023 Telephone encounter Kentrell Dhaliwal MD Work Phone: [facility] Comment on above: Patient Update; Joanie ent Question Start: 11-01-2023 Refill Kentrell gould MD Work Phone: [facility] Comment on above: Refill Request Start: 10-25-2023 Refill Kentrell gould MD Work Phone: [facility] Comment on above: Refill Request Start: 08-03-2023 Telephone encounter Kentrell Dhaliwal MD Work Phone: [facility] Comment on above: Patient Question; Re fill Request Start: 07-25-2023 Telephone encounter Kentrell Dhaliwal MD Work Phone: [facility] Comment on above: Results Start: 07-24-2023 End: 07-24-2023 Subsequent hospital visit by physician [address] GENERAL Comment on above: Generalized weakness [R53.1] Start: 07-24-2023 End: 07-24-2023 Patient encounter procedure Kentrell Dhaliwal MD Work Phone: [facility] Comment on above: Generalized weakness (Primary Dx); SOB (shortness of breath); CHAVARRIA (dyspnea on exertion); Fatigue, unspecified type; Chronic insomnia; Anxiety and depression; Generalized abdominal pain Start: 07-04-2023 Telephone encounter Kentrell Dhaliwal MD Work Phone: [facility] Comment on above: Refill Request Start: 06-18-2023 Refill Kentrell gould MD Work Phone: [facility] Comment on above: Refill Request Start: 06-06-2023 Telephone encounter Kentrell Dhaliwal MD Work Phone: [facility] Comment on above: Refill Request Start: 06-01-2023 Telephone encounter Kentrell Dhaliwal MD Work Phone: [facility] Comment on above: Patient Question Start: 05-22-2023 Refill Kentrell oguld MD Work Phone: [facility] Comment on above: Refill Request Start: 05-18-2023 Telephone encounter Kentrell Dhaliwal MD Work Phone: [facility] Comment on above: Refill Request Start: 05-04-2023 Refill Kentrell gould MD Work Phone: [facility] Comment on above: Refill Request Start: 04-23-2023 Telephone encounter Kentrell Dhaliwal MD Work Phone: [facility] Comment on above: Patient Update; Refi ll Request Start: 04-18-2023 End: 04-18-2023 Patient encounter procedure Kentrell Dhaliwal MD Work Phone: [facility] Comment on above: Small bowel obstruct ion (HCC) (Primary Dx); Recurrent UTI (urinary tract infection); Dermatitis; Gastroesophageal reflux disease, unspecified whether esophagitis present; Hypothyroidism, acquired; Anxiety and depression; Generalized weakness Start: 04-11-2023 Refill Kentrell gould MD Work Phone: [facility] Comment on above: Refill Request Start: 04-10-2023 Refill Kentrell gould MD Work Phone: [facility] Comment on above: Refill Request Start: 03-31-2023 End: 04-01-2023 Emergency department patient visit Dr. Jose Stanton Work Phone: [facility] Work Phone: Start: 03-22-2023 Patient Outreach Gertrude Mccloud RN Work Phone: [facility] Comment on above: Transition Of Care Start: 03-18-2023 Non-patient / Non-visit Dr. Carly Stanton Work Phone: [facility] Work Phone: Start: 03-18-2023 Non-patient / Non-visit Dr. Carly Stanton Work Phone: [facility] Start: 03-17-2023 Non-patient / Non-visit Dr. Carly Stanton Work Phone: [facility] Work Phone: Start: 03-17-2023 Non-patient / Non-visit Dr. Carly Stanton Work Phone: [facility] Start: 03-16-2023 Non-patient / Non-visit Dr. Carly Stanton Work Phone: [facility] Start: 03-16-2023 Non-patient / Non-visit Dr. Carly Stanton Work Phone: [facility] Work Phone: Start: 03-16-2023 End: 03-18-2023 Evaluation and management of inpatient Dr. Jose Stanton [facility] Work Phone: Start: 01-29-2023 Refill Kentrell gould MD Work Phone: [facility] Comment on above: Refill Request Start: 01-17-2023 Refill Kentrell gould MD Work Phone: [facility] Comment on above: Refill Request Start: 01-09-2023 Refill Kentrell gould MD Work Phone: [facility] Comment on above: Refill Request Start: 12-12-2022 Telephone encounter Kentrell Dhaliwal MD Work Phone: [facility] Comment on above: Patient Update Start: 12-11-2022 End: 12-12-2022 Emergency department patient visit [facility] Start: 12-11-2022 Refill Kentrell gould MD Work Phone: [facility] Comment on above: Refill Request Start: 11-23-2022 Telephone encounter Kentrell Dhaliwal MD Work Phone: [facility] Comment on above: Results Start: 11-23-2022 ambulatory KENTRELL DHALIWAL II Facil ity:[facility] Start: 11-23-2022 End: 11-23-2022 Subsequent hospital visit by physician Provider [facility] Start: 11-23-2022 End: 11-23-2022 Patient encounter procedure Kentrell Dhaliwal MD Work Phone: [facility] Comment on above: Hypothyroidism, acqu ired (Primary Dx); Type 2 diabetes mellitus without complication, without long-term current use of insulin (HCC); Gastroesophageal reflux disease, unspecified whether esophagitis present; Anxiety and depression; Elevated liver function tests; Irritable bowel syndrome with both constipation and diarrhea Start: 11-13-2022 Refill Kentrell gould MD Work Phone: [facility] Comment on above: Refill Request Start: 10-31-2022 Refill Kentrell gould MD Work Phone: [facility] Comment on above: Refill Request Start: 10-16-2022 ambulatory LEO EMERSON Fa cility:[facility] Start: 10-16-2022 End: 10-16-2022 Subsequent hospital visit by physician Provider [facility] Comment on above: PAIN LLE Start: 10-14-2022 End: 10-15-2022 Emergency department patient visit LEO EMERSON Facility:[facility] Start: 10-14-2022 End: 10-14-2022 Subsequent hospital visit by physician Provider [facility] Comment on above: MULTIPLE COMPLAINTS Start: 09-05-2022 Telephone encounter Kentrell Dhaliwal MD Work Phone: [facility] Comment on above: Patient Question Start: 08-14-2022 Refill Kentrell gould MD Work Phone: [facility] Comment on above: Refill Request Start: 08-07-2022 Telephone encounter Kentrell Dhaliwal MD Work Phone: [facility] Comment on above: Patient Update Start: 08-03-2022 ambulatory Kentrell gould MD Work Phone: [facility] Start: 08-03-2022 E-mail encounter fro m caregiver Kentrell Dhaliwal II, MD Work Phone: [facility] Start: 07-24-2022 Telephone encounter Travon gamboa DO Work Phone: Gastroenterology Comment on above: Patient Update Start: 07-21-2022 End: 07-21-2022 [facility]: [facility] Comment on above: LLQ abdominal pain [ R10.32] Start: 07-21-2022 End: 07-21-2022 Patient encounter procedure Travon Rene DO Work Phone: Gastroenterology Comment on above: LLQ abdominal pain ( Primary Dx); Nausea and vomiting, unspecified vomiting type; Partial small bowel obstruction (HCC) Start: 07-18-2022 Patient Outreach Silvia Hicks RN Work Phone: [facility] Comment on above: Transition Of Care ( [facility] 07/17/22 UTI, Partial bowel obstruction) Start: 07-17-2022 Refill Kentrell gould MD Work Phone: [facility] Comment on above: Refill Request Start: 07-14-2022 End: 07-17-2022 Evaluation and management of inpatient KAILA FUNEZ Facility:[facility] Start: 07-14-2022 End: 07-17-2022 Subsequent hospital visit by physician Provider [facility] Comment on above: Discharge Summary - Provider [facility] - 07/17/2022 11:50 AM [place] [place] [address] HEALTH INFORMATION MANAGEMENT DISCHARGE SUMMARY Patient: ADINA ESCOBAR ABDUL H M.D. [id number] F Status: ADM IN [facility] 2922-A Date of Admission: 07/14/22 Discharge Summary [...] By: ANUJA WALKER M.D. Tests performed at: [address] [address] Start: 07-10-2022 Telephone encounter Kentrell Dhaliwal MD Work Phone: [facility] Comment on above: Patient Update; Medi cation Problem Start: 07-07-2022 End: 07-07-2022 Emergency department patient visit HALINA MITCHELL Facility:[facility] Start: 07-07-2022 Telephone encounter Kentrell Dhaliwal MD Work Phone: [facility] Comment on above: Patient Question Start: 07-07-2022 End: 07-07-2022 Subsequent hospital visit by physician Provider [facility] Start: 07-04-2022 Refill Kentrell gould MD Work Phone: [facility] Comment on above: Refill Request Start: 06-20-2022 Telephone encounter Kentrell Dhaliwal MD Work Phone: [facility] Comment on above: Patient Question Start: 06-18-2022 Refill Kentrell gould MD Work Phone: [facility] Comment on above: Refill Request Start: 06-06-2022 Refill Kentrell gould MD Work Phone: [facility] Comment on above: Refill Request Start: 06-06-2022 Refill Kentrell gould MD Work Phone: [facility] Comment on above: Refill Request Start: 05-30-2022 End: 05-30-2022 Patient encounter procedure Kentrell Dhaliwal MD Work Phone: [facility] Comment on above: Syncope, unspecified syncope type (Primary Dx); Anxiety and depression; Irritable bowel syndrome with both constipation and diarrhea; Gastroesophageal reflux disease, unspecified whether esophagitis present; Hypothyroidism, acquired; SBO (small bowel obstruction) (HCC); Recurrent UTI (urinary tract infection) Start: 05-18-2022 Telephone encounter Kentrell Dhaliwal MD Work Phone: [facility] Comment on above: Patient Question Refill Request Start: 05-10-2022 End: 05-12-2022 Evaluation and management of inpatient MARILYN LYNN Facility:[facility] Start: 05-09-2022 Patient Outreach Maria Ctrell Brumfieldyelitza [employer]MER Work Phone: [facility] Comment on above: Ambulatory Social Wo rk Start: 05-05-2022 Telephone encounter Kentrell Dhaliwal MD Work Phone: [facility] Comment on above: Insurance Authorizat ion Medication Problem Start: 05-04-2022 Refill Kentrell gould MD Work Phone: [facility] Comment on above: Refill Request Start: 05-04-2022 Telephone encounter Gladys Mauricio RN [facility] Comment on above: ER F/U Start: 05-03-2022 End: 05-04-2022 Emergency department patient visit ABEL Rod JAKE Facility:[facility] Start: 05-03-2022 End: 05-03-2022 Subsequent hospital visit by physician Provider [facility] Start: 05-02-2022 Telephone encounter Kentrell Dhaliwal MD Work Phone: [facility] Comment on above: Patient Update; Medi cation Request Start: 04-24-2022 ambulatory Jasmin Schmidt RN [facility] Comment on above: ER F/U Start: 04-21-2022 Telephone encounter Kentrell Dhaliwal MD Work Phone: [facility] Comment on above: Insurance Authorizat ion Start: 04-21-2022 End: 04-21-2022 Emergency department patient visit STUART Armenta CURRENT Facility:[facility] Start: 04-21-2022 End: 04-21-2022 Subsequent hospital visit by physician Provider [facility] Comment on above: ABD PAIN Start: 04-20-2022 Telephone encounter Kentrell Dhaliwal MD Work Phone: [facility] Comment on above: Results Start: 04-19-2022 ambulatory KENTRELL DHALIWAL II Facil ity:[facility] Start: 04-19-2022 End: 04-19-2022 Subsequent hospital visit by physician Provider [facility] Comment on above: K21.9 E11.9 R79.89 E 03.9 Start: 04-19-2022 End: 04-19-2022 Patient encounter procedure Kentrell Dhaliwal MD Work Phone: [facility] Comment on above: Anxiety and depressi on (Primary Dx); Irritable bowel syndrome with both constipation and diarrhea; Gastroesophageal reflux disease, unspecified whether esophagitis present; Type 2 diabetes mellitus without complication, without long-term current use of insulin (HCC); Elevated liver function tests; Hypothyroidism, acquired; Myalgias; Chronic insomnia Start: 04-03-2022 Refill Kentrell gould MD Work Phone: [facility] Comment on above: Refill Request Start: 04-02-2022 Refill Kentrell gould MD Work Phone: [facility] Comment on above: Refill Request Start: 03-21-2022 Refill Kentrell gould MD Work Phone: [facility] Comment on above: Refill Request Start: 03-01-2022 Telephone encounter Kentrell Dhaliwal MD Work Phone: [facility] Comment on above: Patient Question Start: 02-28-2022 End: 02-28-2022 Patient encounter procedure Kentrell Dhaliwal MD Work Phone: [facility] Comment on above: Anxiety and depressi on (Primary Dx); Chronic insomnia; Gastroesophageal reflux disease, unspecified whether esophagitis present; Type 2 diabetes mellitus without complication, without long-term current use of insulin ([facility]); SBO (small bowel obstruction) ([facility]) Start: 02-22-2022 Telephone encounter Kentrell Dhaliwal MD Work Phone: [facility] Comment on above: Patient Update Start: 02-03-2022 Refill Kentrell gould MD Work Phone: [facility] Comment on above: Refill Request Start: 02-02-2022 Patient Outreach Maximo Benavides RN [employer] [facility] [employer] Comment on above: Transition Of Care ( [facility] Discharged 02/01/2022. TCM Initial encounter) Start: 01-24-2022 Telephone encounter Kentrell Dhaliwal MD Work Phone: [facility] Comment on above: Patient Question Refill Request Start: 01-23-2022 Refill Kentrell gould MD Work Phone: [facility] Comment on above: Refill Request Start: 01-23-2022 Telephone encounter Kentrell Dhaliwal MD Work Phone: [facility] Comment on above: Referral Request Start: 01-17-2022 End: 01-17-2022 Patient encounter procedure Jaswant Moseley MD Work Phone: [facility] Comment on above: History of small bow el obstruction (Primary Dx); Abdominal pain, unspecified abdominal location Start: 01-13-2022 Telephone encounter Kentrell Dhaliwal MD Work Phone: [facility] Comment on above: Results Patient Update Start: 01-12-2022 End: 01-12-2022 Subsequent hospital visit by physician Provider [facility] Comment on above: GENERALIZED ABD PAIN ELEVATED LFT Start: 01-09-2022 Telephone encounter Kentrell Dhaliwal MD Work Phone: [facility] Comment on above: Orders Start: 01-06-2022 Telephone encounter Kentrell Dhaliwal MD Work Phone: [facility] Comment on above: Results Start: 01-05-2022 End: 01-05-2022 Subsequent hospital visit by physician Provider [facility] Comment on above: R53.83 E11.9 E03.9 K 21.9 E53.8 E55.9 D64.9 Start: 01-05-2022 Telephone encounter Kentrell Dhaliwal MD Work Phone: [facility] Comment on above: Insurance Authorizat ion Start: 12-28-2021 End: 12-28-2021 Subsequent hospital visit by physician Provider [facility] Comment on above: ABDOMINAL PAIN HISTO RY OF SM BOWEL OBSTRUCTION Start: 12-27-2021 End: 12-27-2021 Patient encounter procedure Jaswant Moseley MD Work Phone: [facility] Comment on above: History of small bow el obstruction (Primary Dx); Abdominal pain, unspecified abdominal location; Post-operative state Start: 12-27-2021 Telephone encounter Jaswant reardon MD Work Phone: [facility] Comment on above: Scheduling (UPPER GI SERIES ) Start: 12-26-2021 End: 12-26-2021 Subsequent hospital visit by physician Provider [facility] Comment on above: K65.1 PERITONEAL ABS CESS Start: 12-21-2021 Patient Outreach Maximo Benavides RN [facility] [facility] [employer] Comment on above: Transition Of Care ( [facility] Discharged 12/20/2021. TCM Initial encounter) Start: 12-21-2021 Refill Kentrell gould MD Work Phone: [facility] Comment on above: Refill Request Start: 12-20-2021 End: 12-20-2021 Patient encounter procedure Jaswant Moseley MD Work Phone: [facility] Comment on above: [...] encounter procedure Rosanna Lilly DO Work Phone: [facility] Comment on above: History of small bow el obstruction (Primary Dx); On total parenteral nutrition (TPN) Start: 12-08-2021 End: 12-08-2021 Subsequent hospital visit by physician Fernie Aranda Work Phone: [facility] Comment on above: CLIENT BILL Start: 12-05-2021 Orders Only Jaswant Moseley MD Work Phone: [facility] Comment on above: Peritoneal abscess ( HCC) (Primary Dx); Adverse effect of treatment, initial encounter Orders (CT abd/pelvi s auth) Start: 03-04-2005 Documentation procedure Geovanny Bonilla MD Work Phone: [facility] Start: 03-04-2005 Historic EMR Geovanny dale MD Work Phone: [facility] Procedures Date Procedure Procedure Detail Performing Clinician Start: 04-12-[address] Kentrell Dhaliwal MD Work Phone: Start: 04-12-2025 Computed tomography of abdomen and pelvis with intravenous contrast Dr. Kentrell Dhaliwal MD Work Phone: Start: 12-13-2023 Diagnostic radiograp hy of abdomen [...] contrast Start: 11-23-2022 BASIC METABOLIC PNL Florin Dhaliwal MD Work Phone: Start: 11-23-2022 CBC [...] Start: 10-14-2022 BASIC METABOLIC PNL Octavio yamile Sims Ki Work Phone: Start: 10-14-2022 CBC + DIFF Leo Emerson Work Phone: Start: 10-14-2022 CK CREATINE KINASE Jony Emerson Work Phone: Start: 10-14-2022 Creatine kinase.MB [Mass/volume] in Serum or Plasma Leo Sims Ki Work Phone: Start: 10-14-2022 Radiologic exam ches t single view Leo Sims Ki Work Phone: Start: 10-14-2022 TROPONIN T Leo Sims Ki Work Phone: Start: 07-21-2022 Radiologic exam abdo men 2 views Travon Rene Work Phone: Start: 07-17-2022 CREATININE BLD Provider [facility] Start: 07-17-2022 Radiologic exam abdo men 1 view Kentrell Pacheco MD Work Phone: Start: 07-16-2022 BASIC METABOLIC PNL Pro vider [facility] Start: 07-16-2022 CBC + DIFF Provider C [facility] Start: 07-15-2022 CREATININE BLD Provider [facility] Start: 07-15-2022 Radiologic exam abdo men 1 [...] Phone: Start: 07-07-2022 BASIC METABOLIC PNL Gilbert Mitchell Work Phone: Start: 07-07-2022 CBC + DIFF Halina Mitchell Work Phone: Start: 07-07-2022 HEPATIC FUNCTION PNL Ke consuelo Mitchell Work Phone: Start: 07-07-2022 LIPASE BLD Halina Mitchell Work Phone: Start: 07-07-2022 URINALYSIS WITH MICROSCOPIC, REFLEX CULTURE Halina Mitchell Work Phone: Start: 07-07-2022 URINALYSIS, WITH MICROSCOPIC Halina Mitchell Work Phone: Start: 05-03-2022 Ecg routine ecg w/le ast 12 lds trcg only w/o i&r Ccf Provider Start: 05-03-2022 Ct abdomen & pelvis w/contrast material Abel Joseph Work Phone: Start: 05-03-2022 BASIC METABOLIC PNL Karis theodore Joseph Work Phone: Start: 05-03-2022 CBC + DIFF Sarai Joseph Work Phone: Start: 05-03-2022 HEPATIC FUNCTION PNL Shakira Joseph Work Phone: Start: 05-03-2022 LACTIC ACID/LACTATE Karis theodore Joseph Work Phone: Start: 05-03-2022 LIPASE BLD Sarai Joseph Work Phone: Start: 05-03-2022 TROPONIN T Sarai Joseph Work Phone: Start: 05-03-2022 UA WITH CULTURE IF INDICATED Abel Joseph Work Phone: Start: 05-03-2022 URINALYSIS, WITH MICROSCOPIC Abel Joseph Work Phone: Start: 04-21-2022 UA WITH CULTURE IF INDICATED Stuart Crookshen Current Work Phone: Start: 04-21-2022 EXPEDITED COVID19 Stuart Andrew Current Work Phone: Start: 04-21-2022 BASIC METABOLIC PNL Zhang bernal Andrew Current Work Phone: Start: 04-21-2022 CBC + DIFF Stuart estrada Current Work Phone: Start: 04-21-2022 Ct abdomen & pelvis w/contrast material Stuart Andrew Current Work Phone: Start: 04-21-2022 HEPATIC FUNCTION PNL Maggy mildred Andrew Current Work Phone: Start: 04-21-2022 LIPASE BLD Stuart estrada Current Work Phone: Start: 04-19-2022 BASIC METABOLIC PNL Florin Dhaliwal MD Work Phone: Start: 04-19-2022 CBC + DIFF Kentrell Dhaliwal MD Work Phone: Start: 04-19-2022 HEPATIC FUNCTION PNL Ro dylan Dhaliwal MD Work Phone: Start: 04-19-2022 LIPID PANEL BASIC Todd Dhaliwal MD Work Phone: Start: 04-19-2022 TSH BLD Kentrell Dhaliwal MD Work Phone: Start: 01-12-2022 Us abdominal real ti me w/image documentation Kentrell Dhaliwal MD Work Phone: Start: 01-05-2022 BASIC METABOLIC PNL Florin Dhaliwal MD Work Phone: Start: 01-05-2022 CBC + DIFF Kentrell Dhaliwal MD Work Phone: Start: 01-05-2022 HEPATIC FUNCTION PNL India Dhaliwal MD Work Phone: Start: 01-05-2022 IRON + TIBC Kentrell Dhaliwal MD Work Phone: Start: 01-05-2022 TSH BLD Kentrell Dhaliwal MD Work Phone: Start: 01-05-2022 VITAMIN B12 BLOOD Todd Dhaliwal MD Work Phone: Start: 01-05-2022 VITAMIN D 25 HYDROXY India Dhaliwal MD Work Phone: Start: 03-03-2005 SURGICAL PATHOLOGY, CONVERTED Geovanny Bonilla MD Work Phone: Plan of Treatment Date Care Activity Detail Author Start: 2026 RSV Vaccine (1 - 1-dose 75+ series) RSV Vaccine (1 - 1-dose 75+ series) [facility] Start: 03-05-2026 Annual PCP Team Chronic Disease Visit Annual PCP Team Chronic Disease Visit [facility] Start: 01-08-2026 Annual PCP Team Chronic Disease Visit Annual PCP Team Chronic Disease Visit [facility] Start: 01-08-2026 Covid-19 Vaccine ( season) Covid-19 Vaccine ( season) [facility] Comment on above: Postponed from 05/18/2024 (Declined at t his time) Start: 09-26-2025 Annual PCP Team Chronic Disease Visit Annual PCP Team Chronic Disease Visit [facility] Start: 09-03-2025 Annual PCP Team Chronic Disease Visit Annual PCP Team Chronic Disease Visit [facility] Start: 07-10-2025 End: 07-10-2025 Patient encounter procedure 07/10/2025 2:00 PM EDT Office Visit [address] [place], [place] [id number] Kentrell Dhaliwal II, MD [address] [place] [address] 6 months [facility] Comment on above: 6 months Start: 07-04-2025 Annual PCP Team Chronic Disease Visit Annual PCP Team Chronic Disease Visit [facility] Start: 06-11-2025 Annual PCP Team Chronic Disease Visit Annual PCP Team Chronic Disease Visit [facility] Start: 05-18-2025 Influenza vaccination [facility] Start: 04-12-2025 Hospital admission, emergency, from emergency room, medical nature [facility] Start: 04-12-2025 Verification routine [facility] Start: 04-12-2025 Admission procedure [facility] Start: 03-30-2025 End: 03-30-2025 Patient encounter procedure [facility] Comment on above: Dx: Vertigo [R42] Start: 03-08-2025 Screening for malignant neoplasm of colon [facility] Start: 03-05-2025 End: 03-05-2025 Patient encounter procedure 03/05/2025 1:00 PM EDT Office Visit [facility] [address] [place], [place] [id number] Kentrell Dhaliwal II, MD [address] [place] [address] palpitations [facility] Comment on above: palpitations Start: 02-26-2025 End: 05-28-2025 25-hydroxyvitamin D3 [Mass/volume] in Serum or Plasma [facility] Comment on above: Expected: 02/26/2025, Expires: Start: 02-26-2025 End: 05-28-2025 Cobalamin (Vitamin B12) [Mass/volume] in Serum or Plasma [facility] Comment on above: Expected: 02/26/2025, Expires: Start: 02-26-2025 End: 05-28-2025 Thyrotropin [Units/volume] in Serum or Plasma [facility] Work Phone: Comment on above: Expected: 02/26/2025, Expires: Start: 01-08-2025 End: 01-08-2025 Patient encounter procedure [facility] Comment on above: 4 MONTH FOLLOW UP Start: 01-01-2025 Annual PCP Team Chronic Disease Visit Annual PCP Team Chronic Disease Visit [facility] Start: 12-18-2024 End: 12-18-2024 Patient encounter procedure 12/18/2024 2:00 PM EDT Office Visit [facility] [address] [place], [place] [id number] Kentrell Dhaliwal II, MD [address] [place], [place] [id number] Cough, phlegm in throat [facility] Comment on above: Cough, phlegm in throat Start: 11-27-2024 Annual PCP Team Chronic Disease Visit Annual PCP Team Chronic Disease Visit [facility] Start: 09-26-2024 End: 09-26-2024 Patient encounter procedure 09/26/2024 2:40 PM EST Office Visit [facility] [address] [place], [place] [phone] Kentrell Dhaliwal II, MD [address] [place] [address] [place], [place] [id number] GLENNY d/c [facility] Comment on above: GLENNY d/c [facility] Start: 09-22-2024 End: 09-22-2024 Patient encounter procedure [facility] Comment on above: 3 MONTH FOLLOW UP 3 MONTH FOLLOW UP (O pen Gaps: Breast screeing, Diabetic eye Exam, A1C, uACR) Start: 09-17-2024 Advance Directive Discussion Advance Directive Discussion [facility] Start: 09-17-2024 Medicare Advantage Annual Wellness Visit Medicare Advantage Annual Wellness Visit [facility] Start: 09-03-2024 End: 09-03-2024 Patient encounter procedure 09/03/2024 4:00 PM EST Office Visit [facility] [address] [facility] [facility] [address] [facility] [place], [place] [phone] Kentrell Dhaliwal II, MD [address] [place] [address] [place], [place] [id number] 3 MONTH FOLLOW UP, arthritis and not being able to hold items(Open Gaps: Breast screeing, Diabetic eye Exam, A1C, uACR) [facility] Comment on above: 3 MONTH FOLLOW UP, arthritis and not holland ng able to hold items(Open Gaps: Breast screeing, Diabetic eye Exam, A1C, uACR) Start: 07-24-2024 Annual PCP Team Chronic Disease Visit Annual PCP Team Chronic Disease Visit [facility] Start: 06-11-2024 End: 06-11-2024 Patient encounter procedure 06/11/2024 10:00 AM EDT Office Visit [address] [place], [place] [id number] Kentrell Dhaliwal II, MD [address] [place] [address] [place], [place] [id number] 3 MONTH FOLLOW UP [facility] Comment on above: 3 MONTH FOLLOW UP Start: 05-18-2024 Covid-19 Vaccine ( season) Covid-19 Vaccine ( season) [facility] Start: 05-18-2024 Covid-19 Vaccine ( season) Covid-19 Vaccine ( season) [facility] Start: 05-18-2024 Influenza vaccination [facility] Start: 05-07-2024 End: 05-07-2024 Patient encounter procedure 05/07/2024 9:20 AM EDT Office Visit [address] [place], [place] [phone] Kentrell Dhaliwal II, MD [address] [place] [address] [place], [place] [phone] 3 MONTH FOLLOW UP [facility] Comment on above: 3 MONTH FOLLOW UP Start: 04-18-2024 ANNUAL PCP TEAM CHRONIC DISEASE VISIT ANNUAL PCP TEAM CHRONIC DISEASE VISIT [facility] Start: 04-09-2024 End: 04-09-2024 Patient encounter procedure 04/09/2024 1:00 PM EDT Office Visit [address] [place], [place] [id number] Kentrell Dhaliwal II, MD [address] [place] [address] [place], [place] [id number] 3 MONTH FOLLOW UP [facility] Comment on above: 3 MONTH FOLLOW UP Start: 12-13-2023 [facility] Start: 12-11-2023 Patient discharge [facility] Start: 12-08-2023 Application of intermittent pneumatic compression device [facility] Start: 12-07-2023 Assessment of risk of venous thromboembolism [facility] Start: 12-07-2023 Fall prevention [facility] Start: 12-07-2023 Inhalation therapy procedure [facility] Start: 12-07-2023 Insertion of catheter into peripheral vein [facility] Start: 12-07-2023 Introduction of urinary catheter [facility] Start: 12-07-2023 Measuring intake and output [facility] Start: 12-07-2023 End: 12-07-2023 Patient referral to dietitian [facility] Start: 12-07-2023 Providing care according to standard [facility] Start: 12-07-2023 Provision of activity privileges [facility] Start: 12-07-2023 Referral to general surgeon [facility] Start: 12-07-2023 Referral to occupational therapist [facility] Start: 12-07-2023 Referral to service [facility] Start: 12-07-2023 [facility] Start: 12-07-2023 Hospital admission, emergency, from emergency room, medical nature [facility] Start: 12-07-2023 Prothrombin time [facility] Start: 12-07-2023 Verification routine [facility] Start: 12-07-2023 Admission procedure [facility] Start: 11-24-2023 ANNUAL PCP TEAM CHRONIC DISEASE VISIT ANNUAL PCP TEAM CHRONIC DISEASE VISIT [facility] Start: 09-17-2023 Advance Directive Discussion Advance Directive Discussion [facility] Start: 05-26-2023 Hemoglobin A1c measurement HbA1C [facility] Start: 05-26-2023 Hemoglobin A1c/Hemoglobin.total in Blood HBA1C [facility] Start: 05-18-2023 Covid-19 Vaccine () Covid-19 Vaccine () [facility] Start: 05-18-2023 Influenza vaccination [facility] Start: 04-19-2023 Hepatitis B surface antibody level LDL CHOLESTEROL [facility] Start: 04-01-2023 Bacteria identified in Blood by Culture Blood Culture [facility] Start: 03-31-2023 End: 04-01-2023 Blood culture [facility] Start: 03-25-2023 Blood chemistry [facility] Start: 03-24-2023 Blood chemistry [facility] Start: 03-23-2023 Blood chemistry [facility] Start: 03-22-2023 Blood chemistry [facility] Start: 03-21-2023 Blood chemistry [facility] Start: 03-20-2023 Blood chemistry [facility] Start: 03-19-2023 Blood chemistry [facility] Start: 03-18-2023 Patient discharge [facility] Start: 03-17-2023 [facility] Start: 03-16-2023 [facility] Start: 03-16-2023 Application of intermittent pneumatic compression device [facility] Start: 03-16-2023 Following clinical pathway protocol [facility] Start: 03-16-2023 Assessment of risk of venous thromboembolism [facility] Start: 03-16-2023 Inhalation therapy procedure [facility] Start: 03-16-2023 Insertion of catheter into peripheral vein [facility] Start: 03-16-2023 Insertion of nasogastric tube [facility] Start: 03-16-2023 Introduction of urinary catheter [facility] Start: 03-16-2023 Measuring intake and output [facility] Start: 03-16-2023 Oxygen therapy [facility] Start: 03-16-2023 Providing care according to standard [facility] Start: 03-16-2023 Provision of activity privileges [facility] Start: 03-16-2023 Referral to general surgeon [facility] Start: 03-16-2023 Referral to service [facility] Start: 03-16-2023 [facility] Start: 03-16-2023 Verification routine [facility] Start: 03-16-2023 Admission procedure [facility] Start: 03-16-2023 Consultation [facility] Start: 03-16-2023 Patient referral to dietitian [facility] Start: 02-28-2023 ANNUAL PCP TEAM CHRONIC DISEASE VISIT ANNUAL PCP TEAM CHRONIC DISEASE VISIT [facility] Start: 01-05-2023 ANNUAL PCP TEAM CHRONIC DISEASE VISIT ANNUAL PCP TEAM CHRONIC DISEASE VISIT [facility] Start: 11-23-2022 End: 01-23-2023 Basic metabolic 2000 panel - Serum or Plasma BASIC METABOLIC PNL Lab Routine Hypothyroidism, acquired Type 2 diabetes mellitus without complication, without long-term current use of insulin (HCC) Gastroesophageal reflux disease, unspecified whether esophagitis present Anxiety and depression Elevated liver function tests Expected: 11/23/2022, Expires: 01/23/2023 [facility] Work Phone: Comment on above: Expected: 11/23/2022, Expires: Start: 11-23-2022 End: 01-23-2023 CBC panel - Blood by Automated count CBC Lab Routine Hypothyroidism, acquired Type 2 diabetes mellitus without complication, without long-term current use of insulin (HCC) Gastroesophageal reflux disease, unspecified whether esophagitis present Anxiety and depression Elevated liver function tests Expected: 11/23/2022, Expires: 01/23/2023 [facility] Work Phone: Comment on above: Expected: 11/23/2022, Expires: Start: 11-23-2022 End: 01-23-2023 Hepatic function 2000 panel - Serum or Plasma HEPATIC FUNCTION PNL Lab Routine Hypothyroidism, acquired Type 2 diabetes mellitus without complication, without long-term current use of insulin (HCC) Gastroesophageal reflux disease, unspecified whether esophagitis present Anxiety and depression Elevated liver function tests Expected: 11/23/2022, Expires: 01/23/2023 [facility] Work Phone: Comment on above: Expected: 11/23/2022, Expires: Start: 11-23-2022 End: 01-23-2023 Thyrotropin [Units/volume] in Serum or Plasma TSH BLD Lab Routine Hypothyroidism, acquired Type 2 diabetes mellitus without complication, without long-term current use of insulin (HCC) Gastroesophageal reflux disease, unspecified whether esophagitis present Anxiety and depression Elevated liver function tests Expected: 11/23/2022, Expires: 01/23/2023 [facility] Work Phone: Comment on above: Expected: 11/23/2022, Expires: 3 Start: 09-17-2022 ADVANCE DIRECTIVE DISCUSSION ADVANCE DIRECTIVE DISCUSSION [facility] Start: 08-30-2022 ANNUAL PCP TEAM CHRONIC DISEASE VISIT ANNUAL PCP TEAM CHRONIC DISEASE VISIT [facility] Start: 08-25-2022 Hepatitis B surface antibody level LDL CHOLESTEROL [facility] Start: 05-18-2022 Influenza vaccination INFLUENZA (#1) [facility] Start: 04-19-2022 End: 06-19-2022 Basic metabolic 2000 panel - Serum or Plasma BASIC METABOLIC PNL Lab Routine Gastroesophageal reflux disease, unspecified whether esophagitis present Type 2 diabetes mellitus without complication, without long-term current use of insulin (HCC) Elevated liver function tests Hypothyroidism, acquired Expected: 04/19/2022, Expires: 06/19/2022 [facility] Work Phone: Comment on above: Expected: 04/19/2022, Expires: 2 Start: 04-19-2022 End: 06-19-2022 CBC panel - Blood by Automated count CBC Lab Routine Gastroesophageal reflux disease, unspecified whether esophagitis present Type 2 diabetes mellitus without complication, without long-term current use of insulin (HCC) Elevated liver function tests Hypothyroidism, acquired Expected: 04/19/2022, Expires: 06/19/2022 [facility] Work Phone: Comment on above: Expected: 04/19/2022, Expires: 2 Start: 04-19-2022 End: 06-19-2022 Hepatic function 2000 panel - Serum or Plasma HEPATIC FUNCTION PNL Lab Routine Elevated liver function tests Expected: 04/19/2022, Expires: 06/19/2022 [facility] Work Phone: Comment on above: Expected: 04/19/2022, Expires: 2 Start: 04-19-2022 End: 06-19-2022 Lipid 1996 panel - Serum or Plasma LIPID PANEL BASIC Lab Routine Gastroesophageal reflux disease, unspecified whether esophagitis present Type 2 diabetes mellitus without complication, without long-term current use of insulin (HCC) Elevated liver function tests Hypothyroidism, acquired Expected: 04/19/2022, Expires: 06/19/2022 [facility] Work Phone: Comment on above: Expected: 04/19/2022, Expires: 2 Start: 04-19-2022 End: 06-19-2022 Thyrotropin [Units/volume] in Serum or Plasma TSH BLD Lab Routine Gastroesophageal reflux disease, unspecified whether esophagitis present Type 2 diabetes mellitus without complication, without long-term current use of insulin (HCC) Elevated liver function tests Hypothyroidism, acquired Expected: 04/19/2022, Expires: 06/19/2022 [facility] Work Phone: Comment on above: Expected: 04/19/2022, Expires: 2 Start: 11-15-2021 Hemoglobin A1c/Hemoglobin.total in Blood HBA1C [facility] Start: 11-14-2021 COVID-19 VACCINE (4 - Booster for Moderna series) COVID-19 VACCINE (4 - Booster for Moderna series) [facility] Start: 09-17-2021 ADVANCE DIRECTIVE DISCUSSION ADVANCE DIRECTIVE DISCUSSION [facility] Start: 09-11-2021 COVID-19 VACCINE (4 - Booster for Moderna series) COVID-19 VACCINE (4 - Booster for Moderna series) [facility] Start: 09-11-2021 COVID-19 VACCINE (4 - Moderna series) COVID-19 VACCINE (4 - Moderna series) [facility] Start: 05-13-2017 Shingrix Vaccine (2 of 3) Shingrix Vaccine (2 of 3) [facility] Start: 2016 BONE DENSITY BONE DENSITY [facility] Start: 2016 Bone Density Screening Bone Density Screening [facility] Start: 2016 PNEUMOVAX AGE 65 AND OVER WITH 5YR LOOKBACK (#1) PNEUMOVAX AGE 65 AND OVER WITH 5YR LOOKBACK (#1) [facility] Start: 2016 Screening for osteoporosis Bone Density Screening [facility] Start: 2011 Hepatitis B Vaccine (1 of 3 - Risk 3-dose series) Hepatitis B Vaccine (1 of 3 - Risk 3-dose series) [facility] Start: 2011 RSV Vaccine (1 - 1-dose 60+ series) RSV Vaccine (1 - 1-dose 60+ series) [facility] Start: 11-18-2004 Urine microalbumin profile DTaP,Tdap,Td Vaccine (1 - Tdap) [facility] Start: 2001 SHINGRIX VACCINE (1 of 2) SHINGRIX VACCINE (1 of 2) [facility] Start: 1996 COLOGUARD (FIT-DNA) COLOGUARD (FIT-DNA) [facility] Start: 1996 Colonoscopy COLONOSCOPY [facility] Start: 1996 COLORECTAL CANCER SCREENING COLORECTAL CANCER SCREENING [facility] Start: [address] COLONOGRAPHY [facility] Start: 1996 FECAL OCCULT BLOOD FECAL OCCULT BLOOD [facility] Start: 1996 Screening for malignant neoplasm of colon [facility] Start: 1996 SIGMOIDOSCOPY SIGMOIDOSCOPY [facility] Start: 1991 Mammography [facility] Start: 1991 Screening for malignant neoplasm of breast Mammogram Screening [facility] Start: 1970 Urine microalbumin profile [facility] Start: 1969 HEPATITIS C SCREENING HEPATITIS C SCREENING [facility] Start: 1969 Hepatitis C screening Hepatitis C Screening [facility] Start: 1961 3 comp foot exam completed DIABETIC FOOT EXAM [facility] Start: 1961 Diabetic foot examination Diabetic Foot Exam [facility] Start: 1961 Glaucoma screening Dilated Retinal Exam [facility] Start: 1961 Hepatitis B screening URINE ALBUMIN:CREATININE RATIO [facility] Start: 1961 Hepatitis C antibody, confirmatory test DILATED RETINAL EXAM [facility] Start: 1957 Pneumococcal Vaccine: 65+ (1 - PCV) Pneumococcal Vaccine: 65+ (1 - PCV) [facility] Start: 1957 PNEUMOCOCCAL: 65+ (1 - PCV) PNEUMOCOCCAL: 65+ (1 - PCV) [facility] Anion gap measurement [facility] Anion gap measurement [facility] Anion gap measurement [facility] Anion gap measurement [facility] Anion gap measurement [facility] Anion gap measurement [facility] Anion gap measurement [facility] Bacteria identified in Blood by Culture BLOOD CULTURE Microbiology Routine 07/13/2022 11:27 PM EDT [facility] Work Phone: BUN/Creatinine ratio [facility] BUN/Creatinine ratio [facility] BUN/Creatinine ratio [facility] BUN/Creatinine ratio [facility] BUN/Creatinine ratio [facility] BUN/Creatinine ratio [facility] BUN/Creatinine ratio [facility] Calcium [Mass/volume ] in Serum or Plasma [facility] Calcium [Mass/volume ] in Serum or Plasma [facility] Calcium [Mass/volume ] in Serum or Plasma [facility] Calcium [Mass/volume ] in Serum or Plasma [facility] Calcium [Mass/volume ] in Serum or Plasma [facility] Calcium [Mass/volume ] in Serum or Plasma [facility] Calcium [Mass/volume ] in Serum or Plasma [facility] Carbon dioxide, tota l [Moles/volume] in Serum or Plasma [facility] Carbon dioxide, tota l [Moles/volume] in Serum or Plasma [facility] Carbon dioxide, tota l [Moles/volume] in Serum or Plasma [facility] Carbon dioxide, tota l [Moles/volume] in Serum or Plasma [facility] Carbon dioxide, tota l [Moles/volume] in Serum or Plasma [facility] Carbon dioxide, tota l [Moles/volume] in Serum or Plasma [facility] Carbon dioxide, tota l [Moles/volume] in Serum or Plasma [facility] Chloride [Moles/volu me] in Serum or Plasma [facility] Chloride [Moles/volu me] in Serum or Plasma [facility] Chloride [Moles/volu me] in Serum or Plasma [facility] Chloride [Moles/volu me] in Serum or Plasma [facility] Chloride [Moles/volu me] in Serum or Plasma [facility] Chloride [Moles/volu me] in Serum or Plasma [facility] Chloride [Moles/volu me] in Serum or Plasma [facility] Creatinine [Moles/vo lume] in Serum or Plasma [facility] Creatinine [Moles/vo lume] in Serum or Plasma [facility] Creatinine [Moles/vo lume] in Serum or Plasma [facility] Creatinine [Moles/vo lume] in Serum or Plasma [facility] Creatinine [Moles/vo lume] in Serum or Plasma [facility] Creatinine [Moles/vo lume] in Serum or Plasma [facility] Creatinine [Moles/vo lume] in Serum or Plasma [facility] End: 01-04-2023 Ct abdomen & pelvis w/contrast material CT ABD/PEL W IVCON Radiology Routine Adverse effect of treatment, initial encounter Peritoneal abscess (HCC) 1 Occurrences starting 12/05/2021 until 01/04/2023 [facility] Work Phone: Comment on above: 1 Occurrences starting 12/05/2021 until 01/04/2023 End: 03-05-2026 Echocardiography ECHO Cardiology Routine CHAVARRIA (dyspnea on exertion) Palpitations 1 Occurrences starting 03/05/2025 until 03/05/2026 [facility] Comment on above: 1 Occurrences starting 03/05/2025 until 03/05/2026 Gastrointestinal pathogens panel - Stool by RENATA with probe detection [facility] Glucose [Mass/volume ] in Serum or Plasma [facility] Glucose [Mass/volume ] in Serum or Plasma [facility] Glucose [Mass/volume ] in Serum or Plasma [facility] Glucose [Mass/volume ] in Serum or Plasma [facility] Glucose [Mass/volume ] in Serum or Plasma [facility] Glucose [Mass/volume ] in Serum or Plasma [facility] Glucose [Mass/volume ] in Serum or Plasma [facility] Hematocrit [Volume Fraction] of Blood [facility] Hematocrit [Volume Fraction] of Blood [facility] Hematocrit [Volume Fraction] of Blood [facility] Hematocrit [Volume Fraction] of Blood [facility] Hemoglobin [Mass/vol ume] in Blood [facility] Hemoglobin [Mass/vol ume] in Blood [facility] Hemoglobin [Mass/vol ume] in Blood [facility] Hemoglobin [Mass/vol ume] in Blood [facility] End: 11-16-2023 Hemoglobin A1c in Blood HGB A1C Lab Routine Hypothyroidism, acquired Type 2 diabetes mellitus without complication, without long-term current use of insulin (HCC) Gastroesophageal reflux disease, unspecified whether esophagitis present Anxiety and depression Elevated liver function tests Every 3 months for 4 Occurrences starting 11/23/2022 until 11/16/2023 [facility] Work Phone: Comment on above: Every 3 months for 4 Occurrences startin g 11/23/2022 until 11/16/2023 INR in Blood by Coagulation assay [facility] End: 02-26-2026 Iron and Iron [...] for 4 Occurrences starting 02/26/2025 until 02/26/2026 [facility] Comment on above: Every 3 months for [...] protein-calorie malnutrition (HCC) 02/26/2025 11:26 AM EDT [facility] Leukocytes [#/volume ] in Blood [facility] Leukocytes [#/volume ] in Blood [facility] Leukocytes [#/volume ] in Blood [facility] Leukocytes [#/volume ] in Blood [facility] Magnesium [Mass/volu me] in Serum or Plasma [facility] Mean corpuscular hemoglobin concentration determination [facility] Mean corpuscular hemoglobin concentration determination [facility] Mean corpuscular hemoglobin concentration determination [facility] Mean corpuscular hemoglobin concentration determination [facility] Mean corpuscular hemoglobin determination [facility] Mean corpuscular hemoglobin determination [facility] Mean corpuscular hemoglobin determination [facility] Mean corpuscular hemoglobin determination [facility] Measurement of renal function [facility] Measurement of renal function [facility] Measurement of renal function [facility] Measurement of renal function [facility] Measurement of renal function [facility] Measurement of renal function [facility] Measurement of renal function [facility] Neutrophil count [facility] Neutrophil count [facility] Neutrophil count [facility] Neutrophil count [facility] Neutrophil percent differential count [facility] Neutrophil percent differential count [facility] Neutrophil percent differential count [facility] Neutrophil percent differential count [facility] Patient Education [facility] Work Phone: Patient referral [facility] Work Phone: Platelets [#/volume] in Blood [facility] Platelets [#/volume] in Blood [facility] Platelets [#/volume] in Blood [facility] Platelets [#/volume] in Blood [facility] Potassium [Moles/vol ume] in Serum or Plasma [facility] Potassium [Moles/vol ume] in Serum or Plasma [facility] Potassium [Moles/vol ume] in Serum or Plasma [facility] Potassium [Moles/vol ume] in Serum or Plasma [facility] Potassium [Moles/vol ume] in Serum or Plasma [facility] Potassium [Moles/vol ume] in Serum or Plasma [facility] Potassium [Moles/vol ume] in Serum or Plasma [facility] End: 08-20-2023 Radiologic exam abdomen 2 views XR ABDOMEN 2V ROUTINE SUPINE W UPRIGHT/DECUB/CTL Radiology Routine LLQ abdominal pain Partial small bowel obstruction (HCC) 1 Occurrences starting 07/21/2022 until 08/20/2023 [facility] Work Phone: Comment on above: 1 Occurrences starting 07/21/2022 until 08/20/2023 Radiologic exam abdo men 2 views XR ABDOMEN 2V ROUTINE SUPINE W UPRIGHT/DECUB/CTL Radiology Routine LLQ abdominal pain Partial small bowel obstruction (HCC) 07/21/2022 3:37 PM EDT [facility] Work Phone: Radiologic exam ches t 2 views XR CHEST 2V FRONTAL/LAT Radiology Routine Generalized weakness SOB (shortness of breath) CHAVARRIA (dyspnea on exertion) Fatigue, unspecified type 07/24/2023 3:39 PM EST [facility] Work Phone: End: 01-26-2023 Radiologic exam small int single contrast study XR SMALL BOWEL SERIES Radiology Routine History of small bowel obstruction Abdominal pain, unspecified abdominal location 1 Occurrences starting 12/27/2021 until 01/26/2023 [facility] Work Phone: Comment on above: 1 Occurrences starting 12/27/2021 until 01/26/2023 Red blood cell count [facility] Red blood cell count [facility] Red blood cell count [facility] Red blood cell count [facility] Red cell distributio n width determination [facility] Red cell distributio n width determination [facility] Red cell distributio n width determination [facility] Red cell distributio n width determination [facility] Respiratory pathogen s DNA and RNA panel - Respiratory specimen by RENATA with probe detection [facility] Serum inorganic phos phate measurement [facility] Sodium [Moles/volume ] in Serum or Plasma [facility] Sodium [Moles/volume ] in Serum or Plasma [facility] Sodium [Moles/volume ] in Serum or Plasma [facility] Sodium [Moles/volume ] in Serum or Plasma [facility] Sodium [Moles/volume ] in Serum or Plasma [facility] Sodium [Moles/volume ] in Serum or Plasma [facility] Sodium [Moles/volume ] in Serum or Plasma [facility] Urea nitrogen [Mass/volume] in Serum or Plasma [facility] Urea nitrogen [Mass/volume] in Serum or Plasma [facility] Urea nitrogen [Mass/volume] in Serum or Plasma [facility] Urea nitrogen [Mass/volume] in Serum or Plasma [facility] Urea nitrogen [Mass/volume] in Serum or Plasma [facility] Urea nitrogen [Mass/volume] in Serum or Plasma [facility] Urea nitrogen [Mass/volume] in Serum or Plasma [facility] End: 02-05-2023 Us abdominal real time w/image documentation US ABDOMEN COMPLETE Radiology Routine Generalized abdominal pain Elevated liver function tests 1 Occurrences starting 01/06/2022 until 02/05/2023 [facility] Work Phone: Comment on above: 1 Occurrences starting 01/06/2022 until 02/05/2023 End: 03-05-2026 US Carotid arteries - bilateral US CAROTID ARTERIES [facility] Lab Routine Vertigo 1 Occurrences starting 03/05/2025 until 03/05/2026 [facility] Work Phone: Comment on above: 1 Occurrences starting 03/05/2025 until 03/05/[address] [facility] [facility] Immunizations Immunization Date Immunization Notes Care Provider [facility] 07-27-2021 influenza virus vacc ine, unspecified formulation Kentrell Dhaliwal II, MD Work Phone: [facility] 07-27-2020 influenza, high-dose , quadrivalent vaccine (FLUZONE HIGH DOSE QUADRIVALENT) Jaswant Moseley MD Work Phone: [facility] Payers Date Payer Category Payer Self-pay 2021 Medicare (Managed Care) 1.2. [id number] 2021 Private Health Insurance [id number] 2020 Medicare HUMANA MEDICARE HUMANA GOLD PLUS [id number] 2020-Present [phone] [address] [address] [place] [address] O [id number]. [id number] 2020 Medicare [id number] 1.13.159. [id number] Unknown [id number] 2.0.1.726234.3.579. 2.283 Unknown [id number] 2.0.1.448585.3.579. 2.283 Unknown [id number] 2.840.1.107942.3.579. 2.283 Unknown [id number] 2.840.1.678797.3.579. 2.283 Unknown [id number] 2.16.840.1.624873.3.579. 2.283 Unknown [id number] 2.16.840.1.808470.3.579. 2.283 Unknown [id number] 2.16.840.1.538609.3.579. 2.283 Unknown [id number] 2.16.840.1.547832.3.579. 2.283 Unknown [id number] 2.16.840.1.685890.3.579. 2.283 Unknown [id number] 2.16.840.1.035512.3.579. 2.462 Unknown [id number] 2.16.840.1.228926.3.579. 2.462 Unknown [id number] 2.16.840.1.262129.3.579. 2.462 Unknown [id number] 2.16.840.1.547265.3.579. 2.462 Unknown [id number] 2.16.840.1.229965.3.579. 2.462 Unknown [id number] 2.16.840.1.917042.3.579. 2.462 Unknown [id number] 2.16.840.1.532104.3.579. 2.462 Unknown [id number] 2.16.840.1.779058.3.579. 2.462 Unknown [id number] 2.840.1.079995.3.579. 2.462 Unknown [id number] 2.16.840.1.633605.3.579. 2.462 Unknown [id number] 2.16.840.1.027371.3.579. 2.462 Unknown [id number] 2.16.840.1.511548.3.579. 2.462 Unknown [id number] 2.16.840.1.370875.3.579. 2.462 Social History Date Type Detail Facility Start: 06-22-2020 End: 04-12-2025 Tobacco smoking status NHIS Never smoked tobacco [facility] Start: 06-22-2020 End: 07-21-2022 Tobacco use and exposure Smokeless tobacco non-user [facility] Start: 08-30-2021 End: 03-15-2025 Alcohol intake Ex-drinker (finding) [facility] Start: 10-28-2020 History SDOH Housing Unable to Pay 3 [facility] Start: 10-28-2020 Education 16 [facility] Start: 1950 Sex Assigned At Not on file C [facility] Start: 11-25-2021 End: 08-02-2022 Exposure to SARS-CoV-2 (event) Not sure [facility] Start: 12-11-2022 End: 12-13-2023 Tobacco smoking status NHIS Unknown if ever smoked [facility] Start: 1950 Sex Assigned At Female W [facility] Start: 03-19-2023 History SDOH Financial 5 [facility] Start: 03-19-2023 History SDOH Food Worry 1 [facility] Start: 03-19-2023 History SDOH Transpo rt Med 2 [facility] Start: 10-28-2020 End: 06-11-2024 History of Social function [facility] Start: 10-28-2020 End: 06-11-2024 Social connection and isolation panel [facility] In a typical week, h ow many times do you talk on the telephone with family, friends, or neighbors? Patient refused [facility] Are you now , , , , never or living with a partner? Refused [facility] (I/We) worried wheth er (my/our) food would run out before (I/we) got money to buy more. Never true [facility] Work Phone: In the past 12 month s, was there a time when you were not able to pay the mortgage or rent on time? No [facility] Work Phone: (I/We) worried wheth er (my/our) food would run out before (I/we) got money to buy more. DK or Refused [facility] Goals Date Patient Goal Desired Activity /State [...] Assessment Result Facility 12-11-2023 Functional status Amb[facility] Work Phone: 04-05-2023 Are you deaf, or do you have serious difficulty hearing No 04/05/2023 10:00 AM Edgar Duckworth, DAVID No [facility] 04-05-2023 Are you blind, or do you have serious difficulty seeing, even when wearing glasses No 04/05/2023 10:00 AM Edgar Duckworth, RN No [facility] 04-05-2023 Do you have serious difficulty walking or climbing stairs No 04/05/2023 10:00 AM Edgar Duckworth, DAVID No [facility] 04-05-2023 Do you have difficul ty dressing or bathing No 04/05/2023 10:00 AM Edgar Duckworth, DAVID No [facility] 04-05-2023 Because of a physica l, mental, or emotional condition, do you have difficulty doing errands alone such as visiting a physician's office or shopping No 04/05/2023 10:00 AM Edgar Duckworth, RN No [facility] 03-18-2023 Functional status Ambulates[facility] Work Phone: Mental Status Date Assessment Result Facility 12-11-2023 Cognitive function Voice/Name [facility] Work Phone: 04-05-2023 Because of a physica l, mental, or emotional condition, do you have serious difficulty concentrating, remembering, or making decisions No 04/05/2023 10:00 AM Edgar Duckworth, DAVID No [facility] 03-18-2023 Cognitive function Voice/Name [facility] Work Phone: Clinical Notes 06-22-2020 to 04-12-2025 Telephone Encounter - Husam Grant MA - 03/31/2025 10:33 AM EDTTelephone Encounter - Husam Grant LISA - 03/31/2025 10:33 AM LISSETHTKentrell Dhaliwal II, MD - 03/15/2025 10:31 PM EDT Note Date & Type Note Facility 04-12-2025 History and physi mary note [facility] 04-12-2025 Radiology Diagnostic study note [facility] Imaging Services [address] [place], [place] [address] Abdomen/Pelvis W IV Cont ONLY MR#: [id number] Acct: [id number] Name: ADINA ESCOBAR Rep #: [id number] : 1950 F 74 From: Marvin Luna MD PCP: Dr. Kentrell Dhaliwal MD Status: REG ER Study:Abdomen/Pelvis W IV Cont ONLY Date of E xam: 04/12/25 Exam# [id number] Ordering Dr: Jay Williamson MD PROCEDURE: ABDOMEN/PELVIS [...] dilatation. No significant obstruction proximally. Reading Location: [facility] CC: Dr. Jay Williamson MD; Dr. Kentrell Dhaliwal MD ~ Migrant Leader: Signed [facility] 03-31-2025 Telephone encounter Note US showed <50 % stenosis to bilateral carotid arteries. Will continue to monitor this. Will repeat in 1 year. - Malcolm Salas Called patient and informed of malcolm message. Patient stated ok and thank you. Husam Grant MA [facility] 03-31-2025 Miscellaneous Notes US showed <50 % [...] Husam Grant MA documented in this encounter [facility] 03-31-2025 Telephone encounter Note Patient will be [...] needed for up to 90 days. Husam Grant, MA March 31, 2025 9:17 AM [facility] 03-31-2025 Telephone encounter Note Patient called in regards US on her carotids. Patient is wondering what her results are? Please advise Husam Grant MA [facility] 03-31-2025 Miscellaneous Notes Patient will be out [...] 2025 9:17 AM documented in this encounter [facility] 03-15-2025 Note HNO ID: [id number] Author: KENTRELL DHALIWAL II, MD Service: ? Author Type: Physician Type: Progress Notes Filed: 03/15/2025 22:37 Note Text: Kentrell Dhaliwal II, MD [place] [id number] NOEMI Escobar is a 74 year old [...] Prednisone GI Upset - Propoxyphene Unknown - Undstfv-Wbo-Usg Red* Diarrhea, Intolerance - Sulfa (Sulfonamide * [...] mouth once d (more content not included)... [facility] 03-15-2025 History of Present illness Narrative Images from the original note were not included. Kentrell Dhaliwal II, [place] [address] SUBJECTIVE Adina Escobar is a 74 year [...] [Cefdinir] Diarrhea Prednisone GI Upset Propoxyphene Unknown Obtmhwt-Nzd-Cqi Red* Diarrhea, Intolerance Sulfa (Sulfonamide * Other: [...] Dhaliwal II, M.D. documented in this encounter [facility] 03-13-2025 Note HNO ID: [id number] Author: ?, ?, ? Service: ? Author [...] Marie DING March 13, 2025 10:23 AM [facility] 03-13-2025 History of Present illness Narrative POPULATION HEALTH NAVIGATION OUTREACH Action/FYI [...] 2025 10:23 AM documented in this encounter [facility] 03-13-2025 Note Patient Outreach (NE TNAV) -------- ADINA ESCOBAR I ([id number]) 1950 F Date Time Provider Department 03/13/25 [...] GI Upset PROPOXYPHENE 06/23/2015 16 - Unknown OGMQYSF-TXV-XBV REDUCTASE INHIBIT*06/22/2020 6 - Diarrhea 5 - Intolerance SULFA (SULFONAMIDE ANTIBIOTICS) 06/15/2020 14 - Other: See Comments Comments: Leg pain SHELLFISH CONTAINING PRODUCTS 11/29/2012 7 - Swelling Date Reviewed: 03/05/2025 Reviewed by: Husam Grant MA - Fully Assessed Reason for Visit: Population Health Navigation Outreach [3910] Cmt: [facility] Workbench Prescriptions as of 03/13/2025 - [...] Status:Closed by ANN MARIE CARDONA on 03/13/25 [facility] 03-03-2025 Telephone encounter Note Prescription Refill [...] Charity Wise March 03, 2025 9:04 AM [facility] 03-03-2025 Miscellaneous Notes Prescription Refill Information The patient has been identified by name and date of : Yes Caregiver verified no other encounters exist for this prescription request: Yes Caregiver confirmed with patient/requestor that no other refills are due, in the near future, with this provider at this time: Yes The last office visit in the department: [id number] Does the patient have a future office visit with this provider/department: Yes Requested Prescriptions Pending Prescriptions Disp Refills busPIRone (BUSPAR) 15 mg tablet 30 tablet 5 Sig: Take 0.5 tablets by mouth two times a day. Charity Wise March 03, 2025 9:04 AM documented in this encounter [facility] 03-02-2025 Telephone encounter Note Scheduled patient for 03/05/2025 at [address] OK per Dr Sergio Grant MA [facility] 03-02-2025 Miscellaneous Notes Scheduled patient for 03/05/2025 [...] No Protocols used: Heart Rate and Heartbeat Bdcppuhmg-ZEULR-VB Patient calls the office today and states that she has had three episodes of her heart racing and breaks out in a sweat and gets dizzy. She sits down and it goes away. The second time she was doing nothing and it happened. The third time was last week. Please advise Thank you [phone] Sent to our [facility] nurse pool documented in this encounter [facility] 03-02-2025 Telephone encounter Note Called patient however no answer. Left message informing patient to call office back. Patient can be scheduled on 03/05/2025 at 1120, 1300, or 1600. Also forwarding message to Dr Dhaliwal to see what he would like to do. See encounter from [place]. What does Dr Dhaliwal want to do? Please advise Husam Grant MA [facility] 03-02-[address] Dhaliwal has no open appointments. [facility] 03-02-2025 Telephone encounter Note Reason for Disposition [...] No Protocols used: Heart Rate and Heartbeat Pjasszmne-YUEOI-XO [facility] 03-02-2025 Telephone encounter Note Patient calls the office today and states that she has had three episodes of her heart racing and breaks out in a sweat and gets dizzy. She sits down and it goes away. The second time she was doing nothing and it happened. The third time was last week. Please advise Thank you [phone] Sent to our [facility] nurse pool [facility] Work Phone: 03-02-2025 Telephone encounter Note [...] on her xanax. Please advise Thank you [phone] (home) [phone] (cell) Patient last appointment: 09/26/2024 Jasmin Garza [facility] Work Phone: 03-02-2025 Miscellaneous Notes Patient [...] on her xanax. Please advise Thank you [phone] (home) [phone] (cell) Patient last appointment: 09/26/2024 Jasmin Garza documented in this encounter [facility] 02-27-2025 Telephone encounter Note ----- Message from Kentrell Dhaliwal MD sent at 02/26/2025 11:12 PM EDT ----- Labs are acceptable ranges without significant abnormality that would likely cause the symptoms she is having.. [facility] 02-27-2025 Miscellaneous Notes ----- Message from Kentrell Dhaliwal MD sent at 02/26/2025 11:12 PM EDT ----- Labs are acceptable ranges without significant abnormality that would likely cause the symptoms she is having.. documented in this encounter [facility] 02-26-2025 Telephone encounter Note Patient returned call to the office and states that she will go to an urgent care closer to her. Also thanked Dr Dhaliwal for putting the order in and will go to a [facility] facility for blood work Thank you [facility] Work Phone: 02-26-2025 Miscellaneous Notes Patient returned [...] closer to home since she lives in [place]! Patient called and would like to know if you can work her in for fatigue? She didn't know if she needs her iron or labs done to see why she's exhausted all of the time. She also said she get short winded. Please advise. Thank you. Patient last appointment:09/26/2024 (home) [phone] (cell) Maximo Cast documented in this encounter [facility] 02-26-2025 Telephone encounter Note Left message on voicemail for patient to return our call. Phone number provided. [facility] 02-26-2025 Telephone encounter Note She should go wherever is most convenient for her I can print an order for labs if she wants to go to a [facility] facility [facility] 02-26-2025 Telephone encounter Note Spoke with patient [...] closer to home since she lives in [place]! [facility] 02-26-2025 Telephone encounter Note Patient called and would like to know if you can work her in for fatigue? She didn't know if she needs her iron or labs done to see why she's exhausted all of the time. She also said she get short winded. Please advise. Thank you. Patient last appointment:09/26/2024 (home) [phone] (cell) Maximo Cast [facility] Work Phone: 02-18-2025 Telephone encounter Note [...] Dykes MA February 18, 2025 10:20 AM [facility] 02-18-2025 Miscellaneous Notes Prescription Refill Information [...] 2025 10:20 AM documented in this encounter [facility] 01-29-2025 Telephone encounter Note When patient returns call, can you please verify what number she is calling and leaving the requests for refills on? Since she states that she has called and left multiple requests we need to verify where she is calling. Thanks Rogers Puri MA [facility] 01-29-2025 Miscellaneous Notes When patient returns call, [...] be sent to pharmacy today Thank you [phone] (home) [phone] (cell) Patient last appointment: 09/26/2024 Kavya Argueta documented in this encounter [facility] 01-29-2025 Telephone encounter Note Left message for pt to return the call, number provided [facility] 01-29-2025 Telephone encounter Note This is the first refill request I have gotten. Rx sent to the pharmacy. [facility] 01-29-2025 Telephone encounter Note Please advise [facility] 01-29-2025 Telephone encounter Note Patients daughter along with patient called today. Reason for Call: patient left 3 messages requesting refill for Xanax and has been out for 4 days now. Patient hasn't been able to sleep and anxiety is getting bad. Requesting script be sent to pharmacy today Thank you [phone] (home) [phone] (cell) Patient last appointment: 09/26/2024 Kavya Argueta T [facility] Work Phone: 01-08-2025 Note HNO ID: [id number] Author: KNETRELL DHALIWAL II, MD Service: ? Author Type: Physician Type: Progress Notes Filed: 01/08/2025 17:50 Note Text: Kentrell Dhaliwal II, MD [place] [id number] SUBJECTIVE Adina Escobar is a 74 year [...] [Cefdinir] Diarrhea Prednisone GI Upset Propoxyphene Unknown Uziplua-Yxo-Eho Red* Diarrhea, Intolerance Sulfa (Sulfonamide * Other: [...] day. hyoscyamine S (more content not included)... [facility] 01-01-2025 Telephone encounter Note Prescription Refill [...] Rodriguez MA January 01, 2025 3:41 PM [facility] 01-01-2025 Miscellaneous Notes Prescription Refill Information The [...] 2025 3:41 PM documented in this encounter [facility] 12-25-2024 Telephone encounter Note Prescription Refill Information [...] Rodriguez MA December 25, 2024 5:10 PM [facility] 12-25-2024 Miscellaneous Notes Prescription Refill Information The [...] 2024 5:10 PM documented in this encounter [facility] 12-10-2024 Telephone encounter Note Refills were sent [facility] 12-10-2024 Miscellaneous Notes Refills were sent Left message for patient to call. Phone number was provided. Patient left message on refill line, please verify what medication patient was needing documented in this encounter [facility] 12-09-2024 Telephone encounter Note Prescription Refill Information [...] Toscano MA December 09, 2024 11:12 AM [facility] 12-09-2024 Miscellaneous Notes Prescription Refill Information The [...] 2024 11:12 AM documented in this encounter [facility] 12-09-2024 Telephone encounter Note Prescription Refill Information [...] Dykes MA December 09, 2024 8:06 AM [facility] 12-09-2024 Miscellaneous Notes Prescription Refill Information The [...] 2024 8:06 AM documented in this encounter [facility] 12-08-2024 Telephone encounter Note Left message for patient to call. Phone number was provided. Patient left message on refill line, please verify what medication patient was needing [facility] 11-28-2024 Telephone encounter Note Patient called in today. She said that she has a cough and phlegm in her throat. I advised her she could use the walk in clinic or go to stat care. She did make an appointment as well to see Dr. Dhaliwal. [facility] 11-28-2024 Miscellaneous Notes Patient called in today. She said that she has a cough and phlegm in her throat. I advised her she could use the walk in clinic or go to stat care. She did make an appointment as well to see Dr. Dhaliwal. documented in this encounter [facility] 11-24-2024 Telephone encounter Note Prescription Refill Information [...] Brandt MA November 24, 2024 4:00 PM [facility] 11-24-2024 Miscellaneous Notes Prescription Refill Information The [...] 2024 4:00 PM documented in this encounter [facility] 11-10-2024 Telephone encounter Note Prescription Refill Information [...] Brandt MA November 10, 2024 11:19 AM [facility] 11-10-2024 Miscellaneous Notes Prescription Refill Information The [...] 2024 11:19 AM documented in this encounter [facility] 10-28-2024 Telephone encounter Note Prescription Refill Information [...] Perla Meneses October 28, 2024 10:07 AM [facility] 10-28-2024 Miscellaneous Notes Prescription Refill Information The [...] 2024 10:07 AM documented in this encounter [facility] 10-17-2024 Note HNO ID: [id number] Author: GERTRUDE MCCLOUD RN Service: ? Author Type: Registered Nurse Type: Progress Notes Filed: 10/17/2024 10:30 Note Text: TRANSITION CARE MANAGEMENT (TCM) FOLLOW-UP NOTE Provider Action/FYI Attempt to contact patient for update Patient identified by name and date of : n/a, patient did not answer Spoke to : n/a, left message Discharge Network Status: Hks-ca-Gjvjekd (OON) Discharge Summary: Patient admitted to [facility] for abd pain, bile duct obstruction and discharged on 09/17/24. F/u with PCP completed since discharge. Concerns: Left message for patient to call if any new questions or concerns. 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 Please feel free to return my call if questions or concerns. Will graduate from further outreach calls as pt has not had any further ER visits or hospitalizations. Gertrude Mccloud RN October 17, 2024 10:[address] [facility] 10-17-2024 History of Present illness Narrative TRANSITION CARE MANAGEMENT (TCM) FOLLOW-UP NOTE Provider Action/FYI Attempt to contact patient for update Patient identified by name and date of : n/a, patient did not answer Spoke to : n/a, left message Discharge Network Status: Aoy-lk-Quqcooq (OON) Discharge Summary: Patient admitted to [facility] for abd pain, bile duct obstruction and discharged on 09/17/24. F/u with PCP completed since discharge. Concerns: Left message for patient to call if any new questions or concerns. 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 Please feel free to return my call if questions or concerns. Will graduate from further outreach calls as pt has not had any further ER visits or hospitalizations. Gertrude Mccloud RN October 17, 2024 10:26 AM documented in this encounter [facility] 10-17-2024 Note Patient Outreach (IN TMUD) -------- ADINA ESCOBAR I ([id number]) 1950 F Date Time Provider Department 10/17/24 GERTRUDE MCCLOUD INTMUD During your visit today, we recorded the following information about you: Gertrude Mccloud RN 10/17/2024 10:30 AM Signed TRANSITION CARE MANAGEMENT (TCM) FOLLOW-UP NOTE Provider Action/FYI Attempt to contact patient for update Patient identified by name and date of : n/a, patient did not answer Spoke to : n/a, left message Discharge Network Status: Nmp-lg-Lsceale (OON) Discharge Summary: Patient admitted to [facility] for abd pain, bile duct obstruction and discharged on 09/17/24. F/u with PCP completed since discharge. Concerns: Left message for patient to call if any new questions or concerns. 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 Please feel free to return my call if questions or concerns. Will graduate from further outreach calls as pt has not had any further ER visits or hospitalizations. eGrtrude Mccloud RN October 17, 2024 10:26 AM [...] GI Upset PROPOXYPHENE 06/23/2015 16 - Unknown PLGBCLV-XJH-SPF REDUCTASE INHIBIT*06/22/2020 6 - Diarrhea 5 - Intolerance SULFA (SULFONAMIDE ANTIBIOTICS) 06/15/2020 14 - Other: See Comments Comments: Leg pain SHELLFISH CONTAINING PRODUCTS 11/29/2012 7 - Swelling Date Reviewed: 09/26/2024 Reviewed by: Dorothy Wallcae MA - Fully Assessed Reason for Visit: [...] tablet by mouth four times daily. - mpmhhupejnf-qhcdvsrgz-akeuycqd (TRELEGY ELLIPTA) 100-62.5-25 mcg inhalation powder Inhale [...] 8 hours as needed for nausea/vomiting. - qyuqsgvfow-aubdcriq-vvkiejtbhu (BREZTRI AEROSPHERE) 160-9-4.8 mcg/actuation HFA aerosol inhaler [...] mouth twice daily. (more content not included)... [facility] 10-15-2024 Telephone encounter Note Prescription Refill [...] Wallace MA October 15, 2024 8:05 AM [facility] 10-15-2024 Miscellaneous Notes Prescription Refill Information The [...] 2024 8:05 AM documented in this encounter [facility] 10-07-2024 Telephone encounter Note Prescription Refill Information [...] Grant MA October 07, 2024 2:52 PM [facility] 10-07-2024 Miscellaneous Notes Prescription Refill Information The [...] 2024 2:52 PM documented in this encounter [facility] 09-29-2024 Telephone encounter Note Prescription Refill Information [...] Wallace MA September 29, 2024 8:34 AM [facility] 09-29-2024 Miscellaneous Notes Prescription Refill Information The [...] 2024 8:34 AM documented in this encounter [facility] 09-26-2024 Note HNO ID: [id number] Author: KENTRELL DHALIWAL II, MD Service: ? [...] 2 business days post-discharge Summary Discharged from: [facility] Admit Date: 09/14/24 Admitted for: [...] or sooner if needed with an update [facility] 09-26-2024 History of Present illness Narrative Transitional Care Management TCM Eligibility Documentation Program: Transitional Care Management Status: Enrolled Effective Dates: 09/18/2024 - present Responsible Staff: Gertrude Mccloud RN Discharge date: 09/17/2024 (Program start) Date of initial contact: 09/18/2024 Initial contact Target status: Successful; Contact made within 2 business days post-discharge Summary Discharged from: [facility] Admit Date: 09/14/24 Admitted for: [...] with an update documented in this encounter [facility] 09-21-2024 Note HNO ID: [id number] Author: KENTRELL DHALIWAL II, MD Service: ? Author Type: Physician Type: Progress Notes Filed: 09/21/2024 15:43 Note Text: Kentrell Dhaliwal II, MD [address], [address] [place] [id number] SUBJECTIVE Adina Escobar is a 74 year [...] [Cefdinir] Diarrhea Prednisone GI Upset Propoxyphene Unknown Bbrpxcq-Kdk-Kvc Red* Diarrhea, Intolerance Sulfa (Sulfonamide * Other: [...] Take 1 table (more content not included)... [facility] 09-21-2024 History of Present illness Narrative Images from the original note were not included. Kentrell Dhaliwal II, MD [address], [address] [place] [id number] SUBJECTIVE Adina Escobar is a 74 year [...] [Cefdinir] Diarrhea Prednisone GI Upset Propoxyphene Unknown Sbziqfn-Yys-Mjf Red* Diarrhea, Intolerance Sulfa (Sulfonamide * Other: [...] as needed for up to 10 days. rpzbezipoy-yqreqbis-xepsckqnql (BREZTRI AEROSPHERE) 160-9-4.8 mcg/actuation HFA aerosol inhaler [...] Dhaliwal II, M.D. documented in this encounter [facility] 09-18-2024 History of Present illness Narrative Initial Contact Transition Care Management (TCM) Initial contact with patient post discharge, spoke to patient. Patient identified by name and . SUMMARY: - Patient discharged from [facility] on 09/17/24. - Follow up [...] Gertrude Mccloud RN documented in this encounter [facility] 09-17-2024 Note [facility] Medical Records Department [address] [place] [id number] Discharge Summary 09/17/24 1330 MR#: [id number] Acct: [id number] Name: ADINA ESCOBAR Rep #: [id number] : 1950 74 From: Edmundo Gilliland MD PCP: Dr. Kentrell Dhaliwal MD Status:ADM IN Location: [place] [id number] Providers Date of Admission: 09/14/24 Date of Discharge: 09/17/24 Primary Care Physician: Dr. Kentrell Dhaliwal MD Consultations 09/14/24 09:29 Consult: Gastroenterology Routine Consulting Provider: [facility] Reason for Consult: Diffuse IHBD, CBD and pancreatic ductal dilatation. EMERGENT Consult: No Notified: Yes Date Notified: 09/14/24 Time Notified: 09:15 Method of Notification: Verbal 09/14/24 09:41 Consult: General Surgery Routine Consulting Provider: Paulo Umanzor Reason for Consult: SMALL Bowel ileus, biliary and PD dilation EMERGENT Consult: No Notified: Yes Date Notified: 09/14/24 Time Notified: [...] 24 hr 0 (more content not included)... [facility] 09-12-2024 Telephone encounter Note Rx sent [facility] 09-12-2024 Miscellaneous Notes Rx sent Patient calls She said her left ear is painful. No seeping. No fever. Started today. She asked if something can be sent in. Thank you. [phone] documented in this encounter [facility] 09-11-2024 Telephone encounter Note Patient calls She said her left ear is painful. No seeping. No fever. Started today. She asked if something can be sent in. Thank you. [phone] [facility] 09-09-2024 Telephone encounter Note Prescription Refill Information [...] Wallace MA September 09, 2024 8:29 AM [facility] 09-09-2024 Miscellaneous Notes Prescription Refill Information The [...] 2024 8:29 AM documented in this encounter [facility] 08-28-2024 Telephone encounter Note Patient calls today. Reason for Call: Adina called requesting a refill on alprazolam. She uses [facility] in [place] [phone] (home) [phone] (cell) Patient last appointment: 08/19/2024 Mari Platt [facility] 08-28-2024 Miscellaneous Notes Patient calls today. Reason for Call: Adina called requesting a refill on alprazolam. She uses [facility] in [place] [phone] (home) [phone] (cell) Patient last appointment: 08/19/2024 Mari Lc documented in this encounter [facility] 08-19-2024 Telephone encounter Note Faxed surgical clearance form to [facility]. Husam Grant MA [facility] 08-19-2024 Miscellaneous Notes Faxed surgical clearance form to [facility]. Husam Grant MA Patient is having [...] the form be completed? Dr Dhaliwal Summary: [facility] CALLED TO MENTION THAT PATIENT IS WISHING TO BE SCHEDULED FOR DENTAL PROCEDURE BY WEEK'S END. HER DENTIST WILL BE LEAVING BY WEEK'S END PATIENT WILL HAVE TO BE OFF BLOOD THINNERS VERY SOON IN ORDER TO BE SCHEDULED BEFORE HER DENTIST LEAVES. ASKING IF OFFICE CAN CALL [phone], OPTION 2 (ASK FOR BRISTON) TO ADVISE WHEN MEDICAL RELEASE PAPERWORK IS READY TO BE FAXED SO THAT PATIENT CAN BE SCHEDULED THANK YOU Patience Choi documented in this encounter [facility] 08-19-2024 Telephone encounter Note Patient is having 8/9 more teeth extracted. Form received requesting protocol on warfarin for the 8/9 more teeth extractions. Form put on Dr Dhaliwal desk. Sorry that they are requesting new form for extracting more teeth. Husam Grant MA [facility] 08-19-2024 Telephone encounter Note She can stop [...] request the form be completed? Dr Dhaliwal [facility] 08-19-2024 Telephone encounter Note Summary: [facility] CALLED TO MENTION THAT PATIENT IS WISHING TO BE SCHEDULED FOR DENTAL PROCEDURE BY WEEK'S END. HER DENTIST WILL BE LEAVING BY WEEK'S END PATIENT WILL HAVE TO BE OFF BLOOD THINNERS VERY SOON IN ORDER TO BE SCHEDULED BEFORE HER DENTIST LEAVES. ASKING IF OFFICE CAN CALL [phone], OPTION 2 (ASK FOR NATHALIEON) TO ADVISE WHEN MEDICAL RELEASE PAPERWORK IS READY TO BE FAXED SO THAT PATIENT CAN BE SCHEDULED THANK YOU Patience Choi [facility] 08-12-2024 Telephone encounter Note Prescriptions sent to the pharmacy [facility] 08-12-2024 Miscellaneous Notes Prescriptions sent to the pharmacy Patient called in regards to wanting to increase her buspar and getting back on her iron. Could Dr Dhaliwal send in new prescription of iron and increase buspar? Please advise Husam Grant MA documented in this encounter [facility] 08-12-2024 Telephone encounter Note Patient called in regards to wanting to increase her buspar and getting back on her iron. Could Dr Dhaliwal send in new prescription of iron and increase buspar? Please advise Husam Grant MA [facility] 08-11-2024 Telephone encounter Note Patient called office in regards to be at the dentists office. Patient stated that she is getting a tooth extracted and has yanelis off the coumadin for a week. Dental litigation legal assistant asked if a week was long enough for being off coumadin. Went back asked Dr Dhaliwal if a week is long enough to be off the coumadin and per Dr Dhaliwal yes. Informed dental litigation legal assistant per Dr Dhaliwal yes a week is long enough to bee off coumadin. Dental litigation legal assistant stated thank you. Husam Grant MA [facility] 08-11-2024 Miscellaneous Notes Patient called office in regards to be at the dentists office. Patient stated that she is getting a tooth extracted and has yanelis off the coumadin for a week. Dental litigation legal assistant asked if a week was long enough for being off coumadin. Went back asked Dr Dhaliwal if a week is long enough to be off the coumadin and per Dr Dhaliwal yes. Informed dental litigation legal assistant per Dr Dhaliwal yes a week is long enough to bee off coumadin. Dental litigation legal assistant stated thank you. Husam Grant MA documented in this encounter [facility] 07-30-2024 Telephone encounter Note Called patient however no answer. Left message informing patient that Dr Dhaliwal said to go to the ER. Husam Grant MA [facility] 07-30-2024 Miscellaneous Notes Called patient however no [...] Asking for recommendations Please advise Thank you [phone] (home) [phone] (cell) Patient last appointment: 07/29/2024 Jasmin Garza documented in this encounter [facility] 07-30-2024 Telephone encounter Note Patient calls today. [...] Asking for recommendations Please advise Thank you [phone] (home) [phone] (cell) Patient last appointment: 07/29/[address] [facility] 07-29-2024 Telephone encounter Note Prescription Refill Information [...] Cinthia Rob July 29, 2024 8:[address] [facility] 07-29-2024 Miscellaneous Notes Prescription Refill Information The [...] 2024 8:16 AM documented in this encounter [facility] 07-12-2024 Note HNO ID: [id number] Author: KENTRELL DHALIWAL II, MD Service: ? Author Type: Physician Type: Progress Notes Filed: 07/12/2024 19:41 Note Text: Kentrell Dhaliwal II, MD [address], [address] [place] [id number] SUBJECTIVE Adina Escobar is a 74 year [...] [Cefdinir] Diarrhea Prednisone GI Upset Propoxyphene Unknown Zkrbgqd-Amq-Fls Red* Diarrhea, Intolerance Sulfa (Sulfonamide * Other: [...] tablet) rOPINIRole (REQ (more content not included)... [facility] 07-12-2024 History of Present illness Narrative Images from the original note were not included. Kentrell Dhaliwal II, MD [address], [place] [address] SUBJECTIVE Adina Escobar is a 74 year [...] [Cefdinir] Diarrhea Prednisone GI Upset Propoxyphene Unknown Tndxfxt-Iyu-Ern Red* Diarrhea, Intolerance Sulfa (Sulfonamide * Other: [...] every 8 hours as needed for nausea/vomiting. oljldanmsd-ijzbttrw-hxibminblu (BREZTRI AEROSPHERE) 160-9-4.8 mcg/actuation HFA aerosol inhaler [...] Dhaliwal II, M.D. documented in this encounter [facility] 07-04-2024 Telephone encounter Note Prescription Refill Information [...] Grant MA July 04, 2024 8:09 AM [facility] 07-04-2024 Miscellaneous Notes Prescription Refill Information The [...] 2024 8:09 AM documented in this encounter [facility] 07-02-2024 Miscellaneous Notes Prescription Refill Information The [...] 2024 8:25 AM documented in this encounter [facility] 07-02-2024 Telephone encounter Note Prescription Refill Information [...] Wallace MA July 02, 2024 8:25 AM [facility] 06-30-2024 Telephone encounter Note Patient called in today. She wanted to let Dr. Dhaliwal know she is doing much better. Thank you. [facility] 06-30-2024 Miscellaneous Notes Patient called in today. [...] her for this? Please Advise Thank you [phone] (home) [phone] (cell) Patient last appointment: 06/14/2024 Kaylee Palomares documented in this encounter [facility] 06-30-2024 Telephone encounter Note Prescription Refill Information [...] Cinthia Rob June 30, 2024 11:32 AM [facility] 06-30-2024 Miscellaneous Notes Prescription Refill Information The [...] 2024 11:32 AM documented in this encounter [facility] 06-26-2024 Telephone encounter Note Patient called into [...] she will do that. Husam Grant MA [facility] 06-25-2024 Telephone encounter Note Neosporin and Cotton ball. To ER if worse [facility] 06-25-2024 Telephone encounter Note Called patient [...] ear bleeding? Please advise Husam Grant MA [facility] 06-25-2024 Telephone encounter Note Rx sent T [facility] 06-25-2024 Telephone encounter Note Patient called and wanted to add extreme ear pain and bleeding to her left ear and now can not hear out of it and now to the message below. Thank you. [facility] 06-25-2024 Telephone encounter Note Patient calls [...] her for this? Please Advise Thank you [phone] (home) [phone] (cell) Patient last appointment: 06/14/2024 Kaylee Palomares T [facility] 06-16-2024 Telephone encounter Note Prescription Refill [...] Grant MA June 16, 2024 8:12 AM [facility] 06-16-2024 Miscellaneous Notes Prescription Refill Information The [...] 2024 8:12 AM documented in this encounter [facility] 06-13-2024 Telephone encounter Note Called patient however no answer. Left message informing patient that labs are in acceptable ranges. Informed to recheck in 6 months or sooner if needed. Husam Grant MA [facility] 06-13-2024 Telephone encounter Note ----- Message from Kentrell Dhaliwal MD sent at 06/12/2024 5:28 PM EDT ----- Labs are acceptable ranges. Recheck labs in 6 months or sooner if needed. [facility] 06-13-2024 Miscellaneous Notes Called patient however no answer. Left message informing patient that labs are in acceptable ranges. Informed to recheck in 6 months or sooner if needed. Husam Grant MA ----- Message from Kentrell Dhaliwal MD sent at 06/12/2024 5:28 PM EDT ----- Labs are acceptable ranges. Recheck labs in 6 months or sooner if needed. documented in this encounter [facility] 06-11-2024 Note HNO ID: [id number] Author: KENTRELL DHALIWAL II, MD Service: ? Author Type: Physician Type: Progress Notes Filed: 06/14/2024 21:10 Note Text: Kentrell Dhaliwal II, MD [address], [address] [place] [id number] SUBJECTIVE Adina Escobar is a 74 year old female who presents with Follow Up (3 month follow up. Pt states that she is having breathing issues. Using all of her inhalers. Pt stated that the time is coming that she will need to go to the long term. Pt needing refills. Pt would like to [...] [Cefdinir] Diarrhea Prednisone GI Upset Propoxyphene Unknown Fsbjxiz-Pyl-Fbs Red* Diarrhea, Intolerance Sulfa (Sulfonamide * Other: [...] needed for nause (more content not included)... [facility] 06-11-2024 History of Present illness Narrative Images from the original note were not included. Kentrell Dhaliwal II, MD [address], [address] [place] [id number] SUBJECTIVE Adina Escobar is a 74 year old female who presents with Follow Up (3 month follow up. Pt states that she is having breathing issues. Using all of her inhalers. Pt stated that the time is coming that she will need to go to the long term. Pt needing refills. Pt would like to [...] [Cefdinir] Diarrhea Prednisone GI Upset Propoxyphene Unknown Asyqfwc-Jcq-Jsn Red* Diarrhea, Intolerance Sulfa (Sulfonamide * Other: [...] every 8 hours as needed for nausea/vomiting. pzqtalxzuk-yfflkqsw-glxgqptyrg (BREZTRI AEROSPHERE) 160-9-4.8 mcg/actuation HFA aerosol inhaler [...] Dhaliwal II, M.D. documented in this encounter [facility] 05-30-2024 Telephone encounter Note Prescription Refill Information [...] Kaylee Palomares May 30, 2024 4:27 PM [facility] 05-30-2024 Miscellaneous Notes Prescription Refill Information The [...] 2024 4:27 PM documented in this encounter [facility] 05-29-2024 Telephone encounter Note Prescription Refill Information [...] Grant MA May 29, 2024 8:39 AM [facility] 05-29-2024 Miscellaneous Notes Prescription Refill Information The [...] 2024 8:39 AM documented in this encounter [facility] 05-07-2024 Telephone encounter Note Patient returned call to the office. She was advised of appointment date and time. She said she was all ready for appointment today and she sat down on her bed and fell back to sleep. [facility] 05-07-2024 Miscellaneous Notes Patient returned call to [...] office she has not. Daughter advised. Patients daughter Rosario called today. Reason for [...] today at 9:20 am Rosario call back [phone] Thank you [phone] (home) [phone] (cell) Patient last appointment: 05/01/2024 Kavya Argueta documented in this encounter [facility] 05-07-2024 Telephone encounter Note RESCHEDULED PATIENT TO 06/11/24 @ 10:00 AM, LEFT MESSAGE ON PATIENT'S VOICEMAIL TO ADVISE Patience Choi [facility] 05-07-2024 Telephone encounter Note Daughter Rosario called back to see if patient has checked in, still can't get a hold of patient. Per Ulises at office she has not. Daughter advised. [facility] 05-07-2024 Telephone encounter Note Patients daughter Rosario [...] today at 9:20 am Rosario call back [phone] Thank you [phone] (home) [phone] (cell) Patient last appointment: 05/01/2024 Kavya Argueta [facility] 05-01-2024 Telephone encounter Note Prescription Refill Information [...] Kaylee Palomares May 01, 2024 11:53 AM [facility] 05-01-2024 Miscellaneous Notes Prescription Refill Information The [...] 2024 11:53 AM documented in this encounter [facility] 04-14-2024 Telephone encounter Note Prescription Refill Information [...] Maximo Pappas April 14, 2024 9:46 AM [facility] 04-14-2024 Miscellaneous Notes Prescription Refill Information The [...] 2024 9:46 AM documented in this encounter [facility] 04-07-2024 Telephone encounter Note Prescription Refill Information [...] Grant MA April 07, 2024 8:08 AM [facility] 04-07-2024 Miscellaneous Notes Prescription Refill Information The [...] 2024 8:08 AM documented in this encounter [facility] 04-01-2024 Telephone encounter Note Prescription Refill Information [...] Jasmin Garza April 01, 2024 11:49 AM [facility] 04-01-2024 Miscellaneous Notes Prescription Refill Information The [...] 2024 11:49 AM documented in this encounter [facility] 03-17-2024 Telephone encounter Note Prescription Refill Information [...] Estelita Lomeli March 17, 2024 9:07 AM [facility] 03-17-2024 Miscellaneous Notes Prescription Refill Information The [...] 2024 9:07 AM documented in this encounter [facility] 03-03-2024 Telephone encounter Note Patient calls requesting refill: Requested Prescriptions Pending Prescriptions Disp Refills ALPRAZolam (XANAX) 1 mg tablet 60 tablet 0 Sig: Take 1 tablet by mouth every 12 hours as needed for up to 30 days. Date of last visit:02/01/2024 Phone #: [phone] (home) [phone] (cell) The patients preferred pharmacy has been captured for this encounter? yes [facility] 03-03-2024 Miscellaneous Notes Patient calls requesting refill: Requested Prescriptions Pending Prescriptions Disp Refills ALPRAZolam (XANAX) 1 mg tablet 60 tablet 0 Sig: Take 1 tablet by mouth every 12 hours as needed for up to 30 days. Date of last visit:02/01/2024 Phone #: [phone] (home) [phone] (cell) The patients preferred pharmacy has been captured for this encounter? yes documented in this encounter [facility] 02-01-2024 Telephone encounter Note Patient calls requesting refill: Requested Prescriptions Pending Prescriptions Disp Refills ALPRAZolam (XANAX) 1 mg tablet 60 tablet 0 Sig: Take 1 tablet by mouth every 12 hours as needed for up to 30 days. Date of last visit:01/02/2024 Phone #: [phone] (home) [phone] (cell) The patients preferred pharmacy has been captured for this encounter? yes [facility] 02-01-2024 Miscellaneous Notes Patient calls requesting refill: Requested Prescriptions Pending Prescriptions Disp Refills ALPRAZolam (XANAX) 1 mg tablet 60 tablet 0 Sig: Take 1 tablet by mouth every 12 hours as needed for up to 30 days. Date of last visit:01/02/2024 Phone #: [phone] (home) [phone] (cell) The patients preferred pharmacy has been captured for this encounter? yes documented in this encounter [facility] 01-15-2024 Telephone encounter Note Patient calls requesting refill: Requested Prescriptions Pending Prescriptions Disp Refills zolpidem (AMBIEN) 10 mg 30 tablet 2 Sig: Take 1 tablet by mouth at bedtime as needed for up to 90 days. For Insomnia Date of last visit:Visit date not found Phone #: [phone] (home) [phone] (cell) The patients preferred pharmacy has been captured for this encounter? yes [facility] 01-15-2024 Miscellaneous Notes Patient calls requesting refill: Requested Prescriptions Pending Prescriptions Disp Refills zolpidem (AMBIEN) 10 mg 30 tablet 2 Sig: Take 1 tablet by mouth at bedtime as needed for up to 90 days. For Insomnia Date of last visit:Visit date not found Phone #: [phone] (home) [phone] (cell) The patients preferred pharmacy has been captured for this encounter? yes documented in this encounter [facility] 01-13-2024 History of Present illness Narrative Images from the original note were not included. Kentrell Dhaliwal II, MD [address], [place] [address] SUBJECTIVE Adina Escobar is a 73 year [...] [Cefdinir] Diarrhea Prednisone GI Upset Propoxyphene Unknown Cwfjhtl-Mel-Zhw Red* Diarrhea, Intolerance Sulfa (Sulfonamide * Other: [...] every 8 hours as needed for nausea/vomiting. dlpfgelesr-tazlsfyb-tbjymfcqbl (BREZTRI AEROSPHERE) 160-9-4.8 mcg/actuation HFA aerosol inhaler [...] Dhaliwal II, M.D. documented in this encounter [facility] 12-17-2023 Miscellaneous Notes Called patient for update- Patient stated that she has decided to go into a Independent living facility. [facility] [place]. Is in the process of making the arrangements. Confirmed that she still plans to follow with Dr. Dhaliwal in the office and confirmed appointment for January 01. Gertrude Mccloud RN Patient calls today. Reason for Call: patient stated we have been calling her sisters number and when checking chart sisters cell phone was listed as patients cell number. Chart has been updated and patient is requesting nurse navigator call her at [phone] . Patient stated she is doing well since being in the hospital but is going to a long term and would like to discuss. Thank you [phone] (home) [phone] (cell) Patient last appointment: 12/12/2023 Kavya Argueta documented in this encounter [facility] 12-11-2023 Progress note Note Date/Time December 11, 2023 8:14am [facility] Medical Records Department [address] [place] [address] Progress Note - Surgery 12/11/23 0807 MR#: [id number] Acct: [id number] Name: ADINA ESCOBAR Rep #:[id number] : 1950 73 From: Rogers RIVERA PA-C PCP: Dr. Kentrell Dhaliwal MD Status:ADM IN Location: [place] [address] Subjective Subjective Patient evaluated resting comfortably in [...] 350, Iron Saturation 8.0 L, Ferritin 15, [id number] 12/11/23 06:10: WBC 5.6, RBC 2.90 L, Hgb 7.8 L, Hct 24.7 L, MCV 85.2, MCH 26.9 L, MCHC 31.6 L, RDW Std Deviation 51.0 H, RDW Coeff of Neno 16.3 H, Plt Count 235,MPV 11.0, Immature Gran % (Auto) 0.200, Neut % (Auto) 52.3, Lymph % (Auto) 32.3,Gibson % (Auto) 11.6 H, Eos % (Auto) [...] follow her. Charges/Coding Visit Charges Inpatient E&M: 99600 Subs Hosp L1 12/11/23 0814 <Electronically signed by Rogers RIVERA PA-C> Cosigner Signature (if applicable): CC: ~ Signed [facility] Work Phone: 1(640) 236-658303-25-2024 Progress note Author Rogers Duarte [facility] December 10, 2023 3:45pm Note Date/Time December 10, 2023 3:4 6pm [facility] Medical Records Department [address] [place] [address] Progress Note - Surgery 12/10/23 1538 MR#: [id number] Acct: [id number] Name: ADINA ESCOBAR Rep #:[id number] : 1950 73 From: Rogers RIVERA PA-C PCP: Dr. Kentrell Dhaliwal MD Status:ADM IN Location: [place] [address] Subjective Subjective Patient evaluated around lunch time. [...] 350, Iron Saturation 8.0 L, Ferritin 15, [id number] 741 Micro: Microbiology 12/08/23 07:00 Stool Clostridioides [...] this patient Charges/Coding Visit Charges Inpatient E&M: 77769 Subs Hosp L1 12/10/23 3144 <Electronically signed by Rogers RIVERA PA-C> Cosigner Signature (if applicable): CC: ~ Signed [facility] Work Phone: 1(359) 820-565003-25-2024 Progress note Author Aly Fragoso [facility] December 10, 2023 10:35am Note Date/Time December 10, 2023 10: 35am [facility] Medical Records Department [address] [place] [address] Progress Note - Hospitalist 12/10/23 1033 MR#: [id number] Acct: [id number] Name: ADINA ESCOBAR Rep #:[id number] : 1950 73 From: Aly quintana MD PCP: Dr. Kentrell Dhaliwal MD Status:ADM IN Location: [place] [address] Subjective Subjective Doing well continue passing flatus. [...] % (Auto) 59.4, Lymph % (Auto) 28.5, Gibson % (Auto) 8.0, Eos % (Auto) 2.8, [...] DVT: SCDs Charges/Coding Visit Charges Inpatient E&M: 24775 Subs Hosp L2 12/10/23 1035 <Electronically signed by Aly Fragoso MD> Cosigner Signature (if applicable): CC: ~ Signed [facility] Work Phone: 1(632) 444-489003-24-2024 Progress note Author Aly Fragoso [facility] December 09, 2023 2:19pm Note Date/Time December 09, 2023 2:1 9pm [facility] Medical Records Department [address] [place] [address] Progress Note - Hospitalist 12/09/23 1418 MR#: [id number] Acct: [id number] Name: ADINA ESCOBAR Rep #:[id number] : 1950 73 From: Aly quintana MD PCP: Dr. Kentrell Dhaliwal MD Status:ADM IN Location: [place] [address]- Subjective Subjective Feels better today, had a [...] % (Auto) 59.4, Lymph % (Auto) 28.5, Gibson % (Auto) 8.0, Eos % (Auto) 2.8, [...] curvature of the spine. Electronically Signed: Thien Robert, DO at 10:36 EDT , Physical Exam [...] level of care ? Pending transfer to [facility], though she may be discharged prior to [...] DVT: SCDs Charges/Coding Visit Charges Inpatient E&M: 32126 Subs Hosp L2 12/09/23 1419 <Electronically signed by Aly Fragoso MD> Cosigner Signature (if applicable): CC: ~ Signed [facility] Work Phone: 1(572) 891-570503-24-2024 Progress note Author Ana Laura Lennon [facility] December 09, 2023 9:37am Note Date/Time December 09, 2023 9:3 4am [facility] Medical Records Department [address] [place] [address] Progress Note - Surgery 12/09/23932 MR#: [id number] Acct: [id number] Name: ADINA ESCOBAR Rep #:[id number] : 1950 73 From: Ana Laura Lennon MD PCP: Dr. Kentrell Dhaliwal MD Status:ADM IN Location: [place] [address] Subjective Subjective Pt had flatus and liquid [...] check KUB. Patient has been accepted to [facility] awaiting bed as she does have short gut due to previous small bowel resection . Ana Laura Lennon M.D. Pager: [phone] [facility] [address] [place] [address], Outpatient [place], [address] [place] [address] Office: [phone] Charges/Coding Visit Charges Inpatient E&M: 00551 Subs Hosp L2 12/09/23 0937 <Electronically signed by Ana Laura Lennon MD> Cosigner Signature (if applicable): CC: ~ Signed [facility] Work Phone: 1(243) 179-493203-23-2024 Progress note Author Aly Fragoso [facility] December 08, 2023 11:04am Note Date/Time December 08, 2023 10: 29am [facility] Medical Records Department [address] [place] [address] Progress Note - Hospitalist 12/08/23 1025 MR#: [id number] Acct: [id number] Name: ADINA ESCOBAR Rep #:[id number] : 1950 73 From: Aly quintana MD PCP: Dr. Kentrell Dhaliwal MD Status:ADM IN Location: [place] [address] Subjective Subjective Continues to be nauseated with [...] Neut % (Auto) 53.4, Lymph % (Auto) 34.5,Gibson % (Auto) 8.6, Eos % (Auto) 2.4, [...] level of care ? Pending transfer to [facility] ? Will recheck H&H this afternoon ? [...] DVT: SCDs Charges/Coding Visit Charges Inpatient E&M: 13785 Subs Hosp L2 12/08/23 1104 <Electronically signed by Aly Fragoso MD> Cosigner Signature (if applicable): CC: ~ Signed [facility] Work Phone: 1(418) 773-743303-23-2024 Progress note Author Ana Laura Lennon [facility] December 08, 2023 9:18am Note Date/Time December 08, 2023 9:1 8am [facility] Medical Records Department [address] [place] [address] Progress Note - Surgery 12/08/23913 MR#: [id number] Acct: [id number] Name: ADINA ESCOBAR Rep #:[id number] : 1950 73 From: Ana Laura Lennon MD PCP: Dr. Kentrell Dhaliwal MD Status:ADM IN Location: [place] [address] Subjective Subjective Patient still complains of abdominal [...] Neut % (Auto) 53.4, Lymph % (Auto) 34.5,Gibson % (Auto) 8.6, Eos % (Auto) 2.4, [...] then vomit. Patient has been accepted to [facility] awaiting bed as she does have short gut due to previous small bowel resection. Ana Laura Lennon M.D. Pager: [phone] [facility] [address] [place] [address], [facility], [address] [place] [id number] Office: [phone] Charges/Coding Visit Charges Inpatient E&M: 63633 Subs Hosp L2 12/08/23 0918 <Electronically signed by Ana Laura Lennon MD> Cosigner Signature (if applicable): CC: ~ Signed [facility] Work Phone: 1(139) 979-822203-22-2024 Consult note Author Paulo Umanzor [facility] December 07, 2023 1:42pm Note Date/Time December 07, 2023 12: 07pm [facility] Medical Records Department [address] [place] [address] Consultation - Surgical 12/07/23 1205 MR#: [id number] Acct: [id number] Name: ADINA ESCOBAR Rep #:[id number] : 1950 73 From: Paulo Escoto PCP: Dr. Kentrell Dhaliwal MD Status:ADM IN Location: [address] 1 Assessment & Plan Assessment/Plan (1) SBO [...] is a 73 F who presents to [facility] after approximately 5 days of [...] tolerate a diet and was transferred to [facility] in the event that she would require surgery. She confirms she was managed nonoperatively. 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 [facility] Medical History Anxiety and depression [...] [From Levaquin] AdvReac Vomiting Verified 03/31/23 22:24 Xuijgsu-XBP-UhW Reductase AdvReac NEEDS Verified 03/31/23 22:24 Inhibitor [...] 44.7 L, Lymph % (Auto) 44.8 H, Gibson % (Auto) 8.4, Eos % (Auto) 0.8, [...] Neut % (Auto) 55.8, Lymph % (Auto) 33.2,Gibson % (Auto) 9.6, Eos % (Auto) 0.7, [...] Umanzor MD; Dr. Kentrell Dhaliwal MD~ Signed [facility] Work Phone: 1(254) 730-102903-22-2024 Discharge summary Author Federico Eneida [facility] December 07, 2023 12:18am Note Date/Time December 06, 2023 5:2 3pm [facility] Medical Records Department [address] [place] [address] Emergency Department Summary 12/06/23 MR#: [id number] Acct: [id number] Name: ADINA ESCOBAR Rep #:[id number] : [...] to whatshe describes as volvulus done in [place]. History of bowel obstructions in the past. Denies any vomiting or abdominal distention. Positive flatus. States ischronic pain however pain different worsening over last 5 days. States has chills however no fevers. Denies urinary symptoms. Denies history of pancreatitis. Denies alcohol history. Prior similar symptoms: Yes PFSH [facility] Medical History Anxiety and depression [...] [From Levaquin] AdvReac Vomiting Verified 03/31/23 22:24 Efiaokx-IDF-LkI Reductase AdvReac NEEDS Verified 03/31/23 22:24 Inhibitor [...] in the hospital was transferred to [facility]. Test considered but not ordered:N/A ED course: Abdominal labs ordered, morphine Zofran fluids started. CT scan ordered for further evaluation. 172: Labs white count 7.4 hemoglobin 10.1. Creatinine [...] initiate transfer process. 1800: I spoke with [facility] transfer line and surgery quarterback, Dr. Staley, [...] discussed with consulting clinician: General surgery, hospitalist, [facility] general surgery This note was generated with Kobojo dictation software. It may contain incorrectwords, spelling, [...] 44.7 L Lymph % (Auto) 44.8 H Gibson % (Auto) 8.4 Eos % (Auto) 0.8 [...] your Primary Care Provider. Call [facility] ([phone]) or report to the closest Emergency Room. Call 911 if necessary. 12/07/23 0018 <Electronically signed by Federico Harvey> Cosigner Signature (if applicable): CC: Dr. Kentrell Dhaliwal MD ~ Signed [facility] Work Phone: 1(810) 383-621703-22-2024 History and physical note Author Jessica Thomas [facility] December 07, 2023 12:09am Note Date/Time December 06, 2023 9:3 8pm [facility] Medical Records Department [address] [place] [address] H&P Exam - Hospitalist 12/07/23 0008 MR#: [id number] Acct: [id number] Name: ADINA ESCOBAR Rep #:[id number] : [...] including bowel resection who presents to the [facility] ED on 12/06/23 with history of [...] transfer to tertiary facility to be cautious. [facility] Medical History Anxiety and depression [...] [From Levaquin] AdvReac Vomiting Verified 03/31/23 22:24 Tfhfpny-BWJ-BiW Reductase AdvReac NEEDS Verified 03/31/23 22:24 Inhibitor [...] 44.7 L, Lymph % (Auto) 44.8 H, Gibson % (Auto) 8.4, Eos % (Auto) 0.8, [...] including bowel resection who presents to the [facility] ED on 12/06/23 with history of [...] bowel obstruction: Given patient is still awaiting [facility] transfer bed at recommendation of general surgery willadmit to [place], maintain on IVFs, NGT per surgery discretion [...] bowel rest. General surgery consulted while at [facility] but again per their recommendation is still awaiting transfer bed at [facility]. #2. Elevated BP without hypertensive diagnosis: Patient with notably elevated BP upon ED presentation, likely pain related however we will continue to closelymonitor and add regimen if appropriate, as needed IV hydralazine especially given n.p.o. status as noted. #3. CKD stage III unclear subtype: Admission BUN/creatinine 12/1.11, baseline creatinine of prior primarily 0.8-1.4, stable, [...] 16 minutes. Charges/Coding Visit Charges Inpatient E&M: 96249 Init Hosp L3 Procedures Hospitalists Procedures: 45890 Advncd Care Plan 30 Min 12/07/23 0009 <Electronically signed by Jessica Thomas MD> Cosigner Signature (if applicable): CC: Dr. Jessica Thomas MD; Dr. Kentrell Dhaliwal MD~ Signed [facility] Work Phone: 1(648) 546-551503-21-2024 History and physical note Author Jessica Thomas [facility] December 07, 2023 12:09am Note Date/Time December 06, 2023 9:3 8pm [facility] Medical Records Department [address] [place] [address] H&P Exam - Hospitalist 12/07/23 0008 MR#: [id number] Acct: [id number] Name: ADINA ESCOBAR Rep #:[id number] : [...] including bowel resection who presents to the [facility] ED on 12/06/23 with history of [...] transfer to tertiary facility to be cautious. [facility] Medical History Anxiety and depression [...] [From Levaquin] AdvReac Vomiting Verified 03/31/23 22:24 Lrbqnov-QWP-NwV Reductase AdvReac NEEDS Verified 03/31/23 22:24 Inhibitor [...] 44.7 L, Lymph % (Auto) 44.8 H, Gibson % (Auto) 8.4, Eos % (Auto) 0.8, [...] including bowel resection who presents to the [facility] ED on 12/06/23 with history of [...] bowel obstruction: Given patient is still awaiting [facility] transfer bed at recommendation of general surgery [...] bowel rest. General surgery consulted while at [facility] but again per their recommendation is still awaiting transfer bed at [facility]. #2. Elevated BP without hypertensive diagnosis: Patient [...] 10.1, MCV 85.2, baseline hemoglobin noted prior -, stable, continue to trend. #10. GERD: We [...] 16 minutes. Charges/Coding Visit Charges Inpatient E&M: 25955 Init Hosp L3 Procedures Hospitalists Procedures: 91321 Advncd Care Plan 30 Min 12/07/23 0009 <Electronically signed by Jessica Thomas MD> Cosigner Signature (if applicable): CC: Dr. Jessica Thomas MD; Dr. Kentrell Dhaliwal MD~ Signed [facility] Work Phone: 1(706) 537-362403-21-2024 Discharge summary Author Federico Eneida [facility] December 07, 2023 12:18am Note Date/Time December 06, 2023 5:2 3pm [facility] Medical Records Department [address] [place] [address] Emergency Department Summary 12/06/23 MR#: [id number] Acct: [id number] Name: ADINA ESCOBAR Rep #:[id number] : [...] to whatshe describes as volvulus done in [place]. History of bowel obstructions in the past. [...] [From Levaquin] AdvReac Vomiting Verified 03/31/23 22:24 Qoibjry-MIE-RgD Reductase AdvReac NEEDS Verified 03/31/23 22:24 Inhibitor [...] in the hospital was transferred to [facility]. Test considered but not ordered:N/A ED [...] initiate transfer process. 1800: I spoke with [facility] transfer line and surgery quarterback, Dr. Staley, [...] discussed with consulting clinician: General surgery, hospitalist, [facility] general surgery This note was generated with Kobojo dictation software. It may contain incorrectwords, spelling, [...] 44.7 L Lymph % (Auto) 44.8 H Gibson % (Auto) 8.4 Eos % (Auto) 0.8 [...] your Primary Care Provider. Call [facility] ([phone]) or report to the closest Emergency Room. Call 911 if necessary. 12/07/23 0018 <Electronically signed by Federico Harvey> Cosigner Signature (if applicable): CC: Dr. Kentrell Dhaliwal MD ~ Signed [facility] Work Phone: 1(438) 882-255703-21-2024 Miscellaneous Notes* Telephone Encounter - Josep Drew [...] THANK YOU Patience Choi documented in [facility] encounterBar[facility]-2024 Miscellaneous Notes* Telephone Encounter - Husam Grant [...] [Cefdinir] Diarrhea Prednisone GI Upset Propoxyphene Unknown Lrevvmv-Eob-Mrb Red* Diarrhea, Intolerance Sulfa (Sulfonamide * Other: See Comments Leg pain Shellfish Containin* Swelling (home) [phone] (cell) Last Office Visit Date: 07/24/2023 Last [facility] Health Visit: Visit date not found Future Appointment: 01/17/2024 The patients preferred pharmacy has been captured for this encounter? yes Request is for script(s) to be escript to pharmacy. Husam Grant MA documented in this encounterBarberton [facility]02-08-2024 Miscellaneous Notes* Telephone Encounter - Rachel Markham [...] [Cefdinir] Diarrhea Prednisone GI Upset Propoxyphene Unknown Sqntsim-Wnf-Biw Red* Diarrhea, Intolerance Sulfa (Sulfonamide * Other: See Comments Leg pain Shellfish Containin* Swelling (home) [phone] (cell) Last Office Visit Date: 07/24/2023 Last [facility] Health Visit: Visit date not found Future Appointment: Visit date not found The patients preferred pharmacy has been captured for this encounter? yes Request is for script(s) to be escript to pharmacy. Rachel Markham MA documented in this encounterBarberton [facility]11-21-2023 Miscellaneous Notes* Telephone Encounter - Husam Grant [...] the pulmonary physician and possibly even a inspection clerk. Her last echocardiogram in April of last year showed relatively good heart functioning but if she is continue to have chest pain we will send her to inspection clerk for further heart evaluation. Patient stated that she would like the referral to a motorcycle police and inspection clerk. Could Dr Dhaliwal print out a referral to Automotive Starter Repairer? Could Dr Dhaliwal print out referral to [employer] Dig[employer] Operator? Please advise Husam Grant MA * Telephone [...] the pulmonary physician and possibly even a inspection clerk. Her last echocardiogram in April of last year showed relatively good heart functioning but if she is continue to have chest pain we will send her to inspection clerk for further heart evaluation. * Telephone Encounter [...] THANK YOU Patience Choi documented in this encounterBarberton [facility]11-08-2023 Miscellaneous Notes* Telephone Encounter - Husam Grant [...] or sooner if needed. documented in this encounterBarberton [facility] Hospital11-07-2023 History of Present illness Narrative* Jillian Ram [...] 24, 2023 3:39 PM documented in this encounterBarberton [facility] Hospital11-07-2023 History of Present illness Narrative* Kentrell Dhaliwal II, MD - 07/24/2023 2:39 PM EST Images from the original note were not included. Kentrell Dhaliwal II, MD [address], [address] [place] [address] SUBJECTIVE Adina Escobar is a 73 year [...] bowel syndrome) Seizures (HCC) Small bowel obstruction ([facility]) Tremor PAST SURGICAL HISTORY Procedure Laterality Date [...] [Cefdinir] Diarrhea Prednisone GI Upset Propoxyphene Unknown Ljudpna-Dzb-Ert Red* Diarrhea, Intolerance Sulfa (Sulfonamide * Other: [...] SF 5000 PLUS 1.1 % dental cream vslnopuqjl-quqlrjyr-eooygovijr (BREZTRI AEROSPHERE) 160-9-4.8 mcg/actuation HFA aerosol inhaler [...] Kentrell Dhaliwal II, M.D. documented in this encounterBarberton [facility] Hospital10-18-2023 Miscellaneous Notes* Telephone Encounter - Patience Choi - 07/04/2023 9:25 AM EDT Summary: REFILL REQUEST HAYDEE WALKER TRAMADOL XANAX THANK YOU Patience Choi documented in this encounterBarberton [facility] Hospital10-02-2023 Miscellaneous Notes* Telephone Encounter - Husam Grant [...] [Cefdinir] Diarrhea Prednisone GI Upset Propoxyphene Unknown Sjzoyqz-Kqb-Xzk Red* Diarrhea, Intolerance Sulfa (Sulfonamide * Other: See Comments Leg pain Shellfish Containin* Swelling (home) [phone] (cell) Last Office Visit Date: 04/18/2023 Last [facility] Visit: Visit date not found Future Appointment: 07/24/2023 The patients preferred pharmacy has been captured for this encounter? yes Request is for script(s) to be escript to pharmacy. Husam Grant MA documented in this encounterBarberton [facility]09-20-2023 Miscellaneous Notes* Telephone Encounter - Patience Choi - 06/06/2023 12:43 PM EDT Summary: REFILL REQUEST PATIENT IS REQUESTING REFILL FOR XANAX THANK YOU Patience Choi documented in this encounterBarberton [facility] Hospital09-15-2023 Miscellaneous Notes* Telephone Encounter - Josep Drew [...] advise Josep Drew MA documented in this encounterBarberton [facility] Hospital09-05-2023 Miscellaneous Notes* Telephone Encounter - Abigail Segura [...] [Cefdinir] Diarrhea Prednisone GI Upset Propoxyphene Unknown Hlyuvjj-Ryk-Uyb Red* Diarrhea, Intolerance Sulfa (Sulfonamide * Other: See Comments Leg pain Shellfish Containin* Swelling (home) [phone] (cell) Last Office Visit Date: 04/18/2023 Last [facility] Health Visit: Visit date not found Future Appointment: 07/24/2023 The patients preferred pharmacy has been captured for this encounter? yes Request is for script(s) to be escript to pharmacy. Abigail Segura MA documented in this encounterBarberton [facility] Hospital09-04-2023 Miscellaneous Notes* Telephone Encounter - Kentrell Dhaliwal II, MD - 05/21/2023 7:32 PM EDT No Can't be mailed away and limited on number of pills and refills * Telephone Encounter - Patience Choi - 05/18/2023 11:57 AM EDT Summary: REFILL REQUEST PATIENT IS REQUESTING REFILL FOR TRAMADOL BE SENT TO [facility] MAIL DELIVERY THANK YOU Patience Choi documented in this encounterBarberton Citizens Hospital08-18-2023 Miscellaneous Notes* Telephone Encounter - Husam Grant [...] [Cefdinir] Diarrhea Prednisone GI Upset Propoxyphene Unknown Navqufk-Qpq-Yzf Red* Diarrhea, Intolerance Sulfa (Sulfonamide * Other: See Comments Leg pain Shellfish Containin* Swelling (home) [phone] (cell) Last Office Visit Date: 04/18/2023 Last [facility] Health Visit: Visit date not found Future Appointment: 07/24/2023 The patients preferred pharmacy has been captured for this encounter? yes Request is for script(s) to be escript to pharmacy. Husam Grant MA documented in this encounterBarberton [facility] Hospital08-09-2023 Miscellaneous Notes* Telephone Encounter - Patience Choi - 04/25/2023 2:47 PM EDT Summary: REFILL REQUESTS PATIENT IS REQUESTING REFILLS FOR AMBIEN AND DICYCLOMINE THANK YOU Patience Choi * Telephone Encounter - Patience Choi - 04/23/2023 1:50 PM EDT Summary: PATIENT UPDATE PATIENT CALLED TO LET KNOW THAT SHE IS DOING MUCH BETTER Patience Choi documented in this encounterBarberton Citizens Hospital08-02-2023 History of Present illness Narrative* Kentrell Dhaliwal II, MD - 04/18/2023 11:48 PM EDT Transitional Care Management TCM Eligibility Documentation The following information was gathered during the initial Patient Outreach Encounter. Date of Outreach: 04/06/2023 Outreach Attempt 1: Contact Made Date of Discharge 04/05/2023 Some recent data might be hidden Summary Discharged from: [facility] Admit Date: 04/01/23 Admitted for: Small [...] Kentrell Dhaliwal II, MD documented in this encounterBarberton Citizens Hospital07-26-2023 Miscellaneous Notes* Telephone Encounter - Josep Drew [...] Diarrhea Omnicef [Cefdinir] Diarrhea Prednisone GI Upset Nezyhjf-Otc-Gmi Red* Diarrhea Sulfa (Sulfonamide * Other: See Comments Leg pain Shellfish Containin* Swelling (home) [phone] (cell) Last Office Visit Date: 11/23/2022 Last [facility] Health Visit: Visit date not found Future Appointment: 04/18/2023 The patients preferred pharmacy has been captured for this encounter? yes Request is for script(s) to be escript to pharmacy. Josep Drew MA refill documented in this encounterBarberton [facility] Hospital07-25-2023 Miscellaneous Notes* Telephone Encounter - Husam Grant [...] Diarrhea Omnicef [Cefdinir] Diarrhea Prednisone GI Upset Swjhaju-Mnc-Zgz Red* Diarrhea Sulfa (Sulfonamide * Other: See Comments Leg pain Shellfish Containin* Swelling (home) [phone] (cell) Last Office Visit Date: 11/23/2022 Last [facility] Health Visit: Visit date not found Future Appointment: 04/18/2023 The patients preferred pharmacy has been captured for this encounter? yes Request is for script(s) to be escript to pharmacy. Husam Grant MA documented in this encounterBarberton [facility] Hospital07-16-2023 History of Past illness Narrative* Problem Noted Date Diagnosed Date Resolved Date SBO (small bowel obstruction) 04/01/2023 04/05/2023 Small bowel obstruction 03/18/2023 07/0 12/2022 Parkinson's disease 06/22/2020 04/17/20 GERD without esophagitis 06/22/202009/2021 documented as of this encounter (statuses as of 04/11/2023) [facility] of Past illness Narrative* Problem Noted Date Diagnosed Date Resolved Date SBO (small bowel obstruction) 04/01/2023 04/05/2023 Small bowel obstruction 03/18/2023 07/0 12/2022 Parkinson's disease 06/22/2020 04/17/20 22 GERD without esophagitis 06/22/202009/2021 documented as of this encounter (statuses as of 04/11/2023) [facility] of Past illness Narrative* Problem Noted Date Diagnosed Date Resolved Date SBO (small bowel obstruction) 04/01/2023 04/05/2023 Small bowel obstruction 03/18/2023 07/0 12/2022 Parkinson's disease 06/22/2020 04/17/20 22 GERD without esophagitis 06/22/202009/2021 documented as of this encounter (statuses as of 04/19/2023) [facility] of Past illness Narrative* Problem Noted Date Diagnosed Date Resolved Date SBO (small bowel obstruction) 04/01/2023 04/05/2023 Small bowel obstruction 03/18/2023 07/0 12/2022 Parkinson's disease 06/22/2020 04/17/20 22 GERD without esophagitis 06/22/202009/2021 documented as of this encounter (statuses as of 04/26/2023) [facility] of Past illness Narrative* Problem Noted Date Diagnosed Date Resolved Date SBO (small bowel obstruction) 04/01/2023 04/05/2023 Small bowel obstruction 03/18/2023 07/0 12/2022 Parkinson's disease 06/22/2020 04/17/20 22 GERD without esophagitis 06/22/202009/2021 documented as of this encounter (statuses as of 05/05/2023) [facility]-16-[facility]23 History of Past illness Narrative* Problem Noted Date Diagnosed Date Resolved Date SBO (small bowel obstruction) 04/01/2023 04/05/2023 Small bowel obstruction 03/18/2023 07/0 12/2022 Parkinson's disease 06/22/2020 04/17/20 22 GERD without esophagitis 06/22/202009/2021 documented as of this encounter (statuses as of 05/23/2023) [facility]-16[facility]2023 History of Past illness Narrative* Problem Noted Date Diagnosed Date Resolved Date SBO (small bowel obstruction) 04/01/2023 04/05/2023 Small bowel obstruction 03/18/2023 07/0 12/2022 Parkinson's disease 06/22/2020 04/17/20 22 GERD without esophagitis 06/22/202009/2021 documented as of this encounter (statuses as of 06/01/2023) [facility] History of Past illness Narrative* Problem Noted Date Diagnosed Date Resolved Date SBO (small bowel obstruction) 04/01/2023 04/05/2023 Small bowel obstruction 03/18/2023 07/0 12/2022 Parkinson's disease 06/22/2020 04/17/20 22 GERD without esophagitis 06/22/202009/2021 documented as of this encounter (statuses as of 06/07/2023) [facility] History of Past illness Narrative* Problem Noted Date Diagnosed Date Resolved Date SBO (small bowel obstruction) 04/01/2023 04/05/2023 Small bowel obstruction 03/18/2023 07/0 12/2022 Parkinson's disease 06/22/2020 04/17/20 22 GERD without esophagitis 06/22/202009/2021 documented as of this encounter (statuses as of 06/07/2023) [facility] History of Past illness Narrative* Problem Noted Date Diagnosed Date Resolved Date SBO (small bowel obstruction) 04/01/2023 04/05/2023 Small bowel obstruction 03/18/2023 07/0 12/2022 Parkinson's disease 06/22/2020 04/17/20 22 GERD without esophagitis 06/22/202009/2021 documented as of this encounter (statuses as of 06/21/2023) [facility] History of Past illness Narrative* Problem Noted Date Diagnosed Date Resolved Date SBO (small bowel obstruction) 04/01/2023 04/05/2023 Small bowel obstruction 03/18/2023 07/0 12/2022 Parkinson's disease 06/22/2020 04/17/20 22 GERD without esophagitis 06/22/202009/2021 documented as of this encounter (statuses as of 07/06/2023) [facility] History of Past illness Narrative* Problem Noted Date Diagnosed Date Resolved Date SBO (small bowel obstruction) 04/01/2023 04/05/2023 Small bowel obstruction 03/18/2023 07/0 12/2022 Parkinson's disease 06/22/2020 04/17/20 22 GERD without esophagitis 06/22/202009/2021 documented as of this encounter (statuses as of 07/11/2023) [facility] History of Past illness Narrative* Problem Noted Date Diagnosed Date Resolved Date SBO (small bowel obstruction) 04/01/2023 04/05/2023 Small bowel obstruction 03/18/2023 07/0 12/2022 Parkinson's disease 06/22/2020 04/17/20 22 GERD without esophagitis 06/22/202009/2021 documented as of this encounter (statuses as of 07/25/2023) [facility] History of Past illness Narrative* Problem Noted Date Diagnosed Date Resolved Date SBO (small bowel obstruction) 04/01/2023 04/05/2023 Small bowel obstruction 03/18/2023 07/0 12/2022 Parkinson's disease 06/22/2020 04/17/20 22 GERD without esophagitis 06/22/202009/2021 documented as of this encounter (statuses as of 07/26/2023) [facility] History of Past illness Narrative* Problem Noted Date Diagnosed Date Resolved Date SBO (small bowel obstruction) 04/01/2023 04/05/2023 Small bowel obstruction 03/18/2023 07/0 12/2022 Parkinson's disease 06/22/2020 04/17/20 22 GERD without esophagitis 06/22/202009/2021 documented as of this encounter (statuses as of 08/06/2023) [facility] History of Past illness Narrative* Problem Noted Date Diagnosed Date Resolved Date SBO (small bowel obstruction) 04/01/2023 04/05/2023 Small bowel obstruction 03/18/2023 07/0 12/2022 Parkinson's disease 06/22/2020 04/17/20 22 GERD without esophagitis 06/22/202009/2021 documented as of this encounter (statuses as of 08/24/2023) [facility] History of Past illness Narrative* Problem Noted Date Diagnosed Date Resolved Date SBO (small bowel obstruction) 04/01/2023 04/05/2023 Small bowel obstruction 03/18/2023 07/0 12/2022 Parkinson's disease 06/22/2020 04/17/20 22 GERD without esophagitis 06/22/202009/2021 documented as of this encounter (statuses as of 10/25/2023) [facility] History of Past illness Narrative* Problem Noted Date Diagnosed Date Resolved Date SBO (small bowel obstruction) 04/01/2023 04/05/2023 Small bowel obstruction 03/18/2023 07/0 12/2022 Parkinson's disease 06/22/2020 04/17/20 22 GERD without esophagitis 06/22/202009/2021 documented as of this encounter (statuses as of 11/01/2023) [facility] History of Past illness Narrative* Problem Noted Date Diagnosed Date Resolved Date SBO (small bowel obstruction) 04/01/2023 04/05/2023 Small bowel obstruction 03/18/2023 07/0 12/2022 Parkinson's disease 06/22/2020 04/17/20 22 GERD without esophagitis 06/22/202009/2021 documented as of this encounter (statuses as of 12/07/2023) [facility] History of Past illness Narrative* Problem Noted Date Diagnosed Date Resolved Date SBO (small bowel obstruction) 04/01/2023 04/05/2023 Small bowel obstruction 03/18/2023 07/0 12/2022 Parkinson's disease 06/22/2020 04/17/20 22 GERD without esophagitis 06/22/202009/2021 documented as of this encounter (statuses as of 12/17/2023) [facility]07-16-2023 Discharge summary Author Delmer Ghosh [facility] April 01, 2023 1:44pm Note Date/Time March 31, 2023 10:2 9pm [facility] Medical Records Department [address] [place] [address] Emergency Department Summary 03/31/23 MR#: [id number] Acct: [id number] Name: ADINA ESCOBAR Rep #:[id number] : 1950 72 From: Matt Harris PCP: Dr. Kentrell Dhaliwal MD Status:REG ER Location: ED ADDENDUM by Dr. Delmer Ghosh MD on 04/01/23 at 1344 Patient has been's excepted at [facility]. We are waiting for a bed. We recontacted them several times. We were told there would not be a bed available. It would be probably 1 or 2 days. I then called our surgeon on-callwho does know this patient. I was about to call medicine on-call to admit her. Then, [facility] called back and they now do have [...] of Present Illness Chief Complaint: Abd Pain [facility] Medical History (Updated 04/01/23 @ 04:06 [...] [From Levaquin] AdvReac Vomiting Verified 03/31/23 22:24 Thiovef-SPF-NiO Reductase AdvReac NEEDS Verified 03/31/23 22:24 Inhibitor [...] Method Room Air Room Air Room Air [facility] Narrative Medical decision making narrative: HISTORY OF [...] from others: The patient's family member Consults: [facility] ALL IMAGES (IF OBTAINED) HAVE BEEN PERSONALLY [...] to outside hospital I did communicated with [facility] Dr. Salgado. Dr. Salgado excepted [...] % (Auto) 59.3 Lymph % (Auto) 31.9 Gibson % (Auto) 7.2 Eos % (Auto) 0.2 [...] Clarity Clear Urine pH 7.0 Ur Specific Voca 1.005 Urine Protein 15 H Urine Glucose [...] Disposition Disposition: Acute Care Hospital Discharge Location: [facility] What to do if you have Problems For any increased pain, shortness of breath, bleeding, nausea or vomiting, chestpain, or any unexpected problems, contact your Primary Care Provider. Call [facility] ([phone]) or report to the closest Emergency Room. Call 911 if necessary. 04/01/23 0406 <Electronically signed by Matt Dominguez DO> Cosigner Signature (if applicable): CC: Dr. Kentrell Dhaliwal MD ~ Signed [facility] Work Phone: 1(751) 105-424207-06-2023 History of Present illness Narrative* Gertrude Mccloud RN - 03/22/2023 1:52 PM EDT Initial Contact Transition Care Management (TCM) Initial contact with patient post discharge, spoke to patient. Patient identified by name and . SUMMARY: - Patient discharged from [facility] on 03/20/23. - Follow up appointment on [...] RN 03/22/2023 9:56 AM [facility] History of Past illness Narrative* Problem Noted Date Resolved Date Malnutrition of mild degree 03/19/2023 07/0 12/2022 Small bowel obstruction 03/18/2023 03/20/20 Parkinson's disease 06/22/2020 04/17/2022 GERD without esophagitis 06/22/2020 022 documented as of this encounter (statuses as of 03/22/2023) [facility]07-02-2023 Progress note Author Ivon Oliver [facility] March 18, 2023 2:57pm Note Date/Time March 18, 2023 2:57p [facility] Medical Records Department [address] [place] [address] Progress Note - Hospitalist 03/18/23 1455 MR#: [id number] Acct: [id number] Name: ADINA ESCOBAR Rep #:[id number] : 1950 72 From: Ivon Oliver MD PCP: Dr. Kentrell Dhaliwal MD Status:ADM IN [facility] Reason for Visit Reason for Visit: Diagnoses [...] Document 03/16/23 15:24 SHANNON (Rec: 03/16/23 15:24 SLA [id number]) Nutrition Malnutrition Evidence of Malnutrition Exists Yes [...] % (Auto) 59.2, Lymph % (Auto) 29.6, Gibson % (Auto) 8.2, Eos % (Auto) 1.9, [...] Signed: Gertrude Brasher MD at 2:55 EDT , Physical [...] tertiary facility. She has been accepted at [facility] by Dr. Almanza and is awaiting bed [...] documentation, 40minutes Charges/Coding Visit Charges Inpatient E&M: 94581 Subs Hosp L3 03/18/23 1457 <Electronically signed by Ivon Oliver MD> Cosigner Signature (if applicable): CC: ~ Signed [facility] Work Phone: 1(314) 713-502207-02-2023 Progress note Author Marvin Edwards [facility] March 18, 2023 8:02am Note Date/Time March 18, 2023 8:02a [facility] Medical Records Department [address] [place] [address] Progress Note - Surgery 03/18/23 0801 MR#: [id number] Acct: [id number] Name: ADINA ESCOBAR Rep #:[id number] : 1950 72 From: Marvin mathew MD PCP: Dr. Kentrell Dhaliwal MD Status:ADM IN [facility] Subjective Subjective Patient told me she was [...] 03/16/23 15:24 SLA (Rec: 03/16/23 15:24 SLA [id number]) Nutrition Malnutrition Evidence of Malnutrition Exists Yes [...] % (Auto) 59.2, Lymph % (Auto) 29.6, Gibson % (Auto) 8.2, Eos % (Auto) 1.9, [...] Signed: Gertrude Brasher MD at 2:55 EDT , Physical [...] 7 abdominal surgeries. Marvin Edwards MD Pager: [facility] [address] [place] [address], [address] [place] [address] Office: 03/18/23 0802 <Electronically signed by Marvin Edwards MD> Cosigner Signature (if applicable): CC: ~ Signed [facility] Work Phone: 1(732) 755-825007-01-2023 Progress note Author Ivon Oliver [facility] March 17, 2023 1:10pm Note Date/Time March 17, 2023 12:52 pm [facility] Medical Records Department [address] [place] [address] Progress Note - Hospitalist 03/17/23 1252 MR#: [id number] Acct: [id number] Name: ADINA ESCOBAR Rep #:[id number] : 1950 72 From: Ivon Oliver MD PCP: Dr. Kentrell Dhaliwal MD Status:ADM IN Location: [place] [address] Reason for Visit Reason for Visit: Diagnoses [...] 03/16/23 15:24 SLA (Rec: 03/16/23 15:24 SLA [id number]) Nutrition Malnutrition Evidence of Malnutrition Exists Yes [...] 78.2 H, Lymph % (Auto) 13.4 L, Gibson % (Auto) 6.5, Eos % (Auto) 1.2, [...] 16:19 EDT Reading Location ID and State: [address] [place] [address] , Service support , Physical Exam Narrative [...] documentation, 40minutes Charges/Coding Visit Charges Inpatient E&M: 00608 Subs Hosp L3 03/17/23 1310 <Electronically signed by Ivon Oliver MD> Cosigner Signature (if applicable): CC: ~ Signed [facility] Work Phone: 1(317) 109-164807-01-2023 Discharge summary Author Ivon Oliver [facility] March 17, 2023 11:29am Note Date/Time March 17, 2023 11:28 am [facility] Medical Records Department [address] [place] [address] Instructions for Home/Discharge Instructions 03/17/23 1127 MR#: [id number] Acct: [id number] Name: ADINA ESCOBAR Rep #:[id number] : [...] Fragoso MD;Dr. Kentrell Dhaliwal MD ~ Signed [facility] Work Phone: 1(675) 742-187607-01-2023 Discharge summary Author Ivon Oliver [facility] March 18, 2023 4:24pm Note Date/Time March 17, 2023 11:29 am [facility] Medical Records Department [address] [place] [address] Discharge Summary 03/17/239 MR#: [id number] Acct: [id number] Name: ADINA ESCOBAR Rep #:[id number] : 1950 72 From: Ivon Oliver MD PCP: Dr. Kentrell Dhaliwal MD Status:ADM IN Location: [place] [address] Providers Date of Admission: 03/16/23 Date of [...] small bowel resection who presents to the [facility] ED on 03/16/23 with history of [...] and she was agreeable. Patient accepted to [facility] by Dr. Almanza. Physical Exam Narrative General: [...] Document 03/16/23 15:24 SHANNON (Rec: 03/16/23 15:24 SLA [id number]) Nutrition Malnutrition Evidence of Malnutrition Exists Yes [...] 78.2 H, Lymph % (Auto) 13.4 L, Gibson % (Auto) 6.5, Eos % (Auto) 1.2, [...] 16:19 EDT Reading Location ID and State: [address] [place] [address] , Service support , D/C Instructions Discharge [...] Self Care Charges/Coding Visit Charges Inpatient E&M: 05284 Disch Hosp >30min 03/18/23 1624 <Electronically signed by Ivon Oliver MD> Cosigner Signature (if applicable): CC: Dr. Ivon Oliver MD; Dr. Knetrell Dhaliwal MD~ Signed [facility] Work Phone: 1(455) 219-200007-01-2023 Progress note Author Marvin Edwards [facility] March 17, 2023 7:04am Note Date/Time March 17, 2023 7:04a m [facility] Medical Records Department [address] [place] [address] Progress Note - Surgery 03/17/23 0703 MR#: [id number] Acct: [id number] Name: ADINA ESCOBAR Rep #:[id number] : 1950 72 From: Marvin mathew MD PCP: Dr. Kentrell Dhaliwal MD Status:ADM IN Location: [place] [address] Subjective Subjective Patient reports she is doing [...] 03/16/23 15:24 SLA (Rec: 03/16/23 15:24 SLA [id number]) Nutrition Malnutrition Evidence of Malnutrition Exists Yes [...] Signed: Gertrude Brasher MD at 7:06 EDT Reading Location ID and State: [address] [place] [address] Tel , Service support , Small Bowel X-Ray 03/16/23 08:50 IMPRESSION: 1. Successful Gastrografin challenge. No bowel obstruction. Documentation of contrast in the colon at 6 hours. Electronically Signed: Fox Han (Brooks), at 16:19 EDT Reading Location ID and State: / [place] , Service support , Physical Exam Const oriented x3 and [...] Umanzor as needed. Marvin Edwards MD Pager: [facility] [address] [place] [address], [address] [place] [address] Office: 03/17/23 0704 <Electronically signed by Marvin Edwards MD> Cosigner Signature (if applicable): CC: ~ Signed [facility] Work Phone: 1([phone]) 529-864706-30-2023 Consult note Author Paulo Umanzor [facility] March 16, 2023 5:57pm Note Date/Time March 16, 2023 10:5 7am [facility] Medical Records Department [address] [place] [address] Consultation - Surgical 03/16/23 1057 MR#: [id number] Acct: [id number] Name: ADINA ESCOBAR Rep #:[id number] : 1950 72 From: Paulo Escoto PCP: Dr. Kentrell Dhaliwal MD Status:ADM IN Location: [place] [address] Assessment & Plan Assessment/Plan (1) Partial small [...] is a 72 F who presents to [facility] with complaints of constipation and [...] reportedly done by Dr. Chicas formerly of [facility] who has since moved to [place]. 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 Ms. Escobar denies any recent colonoscopies and states that she had a single colonoscopy approximately 20 years ago, but reports that her [facility] evaluation [facility]this procedure [facility] in [facility] and she was advised to forego any colonoscopies as she was more likely to be at risk for colon perforation and development of colon cancer. [facility] Medical History (Updated 03/16/23 @ [...] [From Levaquin] AdvReac Vomiting Verified 12/11/22 22:27 Bvtpxue-ZPL-TtJ Reductase AdvReac NEEDS Verified 12/11/22 22:27 Inhibitor [...] % (Auto) 48.5, Lymph % (Auto) 40.6, Gibson % (Auto) 8.3, Eos % (Auto) 1.1, [...] Clarity Clear, Urine pH 6.0, Ur Specific Voca 1.010, Urine Protein Negative, Urine Glucose (UA) [...] to prior study postcholecystectomy. Electronically Signed: Gertrude rBasher MD at 5:35 EDT , KUB X-Ray 03/16/23 06:22 IMPRESSION: NG tube as described. Electronically Signed: Gertrude Brasher MD at 7:06 EDT , Charges/Coding Visit Charges Inpatient E&M: 45604 Init Hosp L2 03/16/23 1757 <Electronically signed by Paulo Umanzor MD> Cosigner Signature (if applicable): CC: Dr. Jessica Thomas MD; Dr. Paulo Umanzor MD; Dr. Kentrell Dhaliwal MD~ Signed [facility] Work Phone: 1(434) 382-820906-30-2023 Discharge summary Author Jose Stanton [facility] March 16, 2023 6:56am Note Date/Time March 16, 2023 3:47 am [facility] Medical Records Department [address] [place] [address] Emergency Department Summary 03/16/23 MR#: [id number] Acct: [id number] Name: ADINA ESCOBAR Rep #:[id number] : 1950 72 From: Jose Stanton MD PCP: Dr. Kentrell Dhaliwal MD Status:ADM IN Location: [facility] CQ400-7 HPI HPI - GI History of Present [...] them was due to adhesions she states. [facility] Medical History (Updated 03/16/23 @ 06:01 by [...] [From Levaquin] AdvReac Vomiting Verified 12/11/22 22:27 Rkatsgr-YLT-WoD Reductase AdvReac NEEDS Verified 12/11/22 22:27 Inhibitor [...] % (Auto) 48.5 Lymph % (Auto) 40.6 Gibson % (Auto) 8.3 Eos % (Auto) 1.1 [...] Clarity Clear Urine pH 6.0 Ur Specific Voca 1.010 Urine Protein Negative Urine Glucose (UA) [...] Management Discussion w/another healthcare provider: Hospitalist and [employer] (Surgery) Discharge Plan Dx/Rx/DC Orders Clinical Impression: Partial small bowel obstruction Disposition Disposition: Acute Care Hospital [facility] What to do if you have Problems For any increased pain, shortness of breath, bleeding, nausea or vomiting, chestpain, or any unexpected problems, contact your Primary Care Provider. Call [facility] ([phone]) or report to the closest Emergency Room. [...] cc: Dr. Kentrell Dhaliwal MD ~* Signed [facility] Work Phone: 1([phone]) 325-515206-30-2023 History and physical note Author Jessica Thomas [facility] March 16, 2023 6:39am Note Date/Time March 16, 2023 6:31 am [facility] Medical Records Department [address] [place] [address] H&P Exam - Hospitalist 03/16/23630 MR#: [id number] Acct: [id number] Name: ADINA ESCOBAR Rep #:[id number] : 1950 72 From: Jessica Thomas MD PCP: Dr. Kentrell Dhaliwal MD Status:ADM IN [facility] HPI - General General Date of Admission: 03/16/23 Date of Service: 03/16/23 Chief Complaint: Abdominal pain, N/V. HPI Narrative The patient is a 72 y/o F w/ PMHx: Hypothyroidism, Anxiety and Depression, Hx VTE, HLD, GERD, Hx SBO s/p 7 prior abdominal surgeries including bowel resectionwho presents to the [facility] ED on 03/16/23 with history of [...] placed and small bowel follow-through be initiated. [facility] Medical History (Updated 03/16/23 @ [...] tablet 4 mg PO Q6H PRN Nausea 03/27/23 [History Last Taken Unknown] zolpidem 10 mg [...] [From Levaquin] AdvReac Vomiting Verified 12/11/22 22:27 Vzedwlo-DGK-ExO Reductase AdvReac NEEDS Verified 12/11/22 22:27 Inhibitor [...] % (Auto) 48.5, Lymph % (Auto) 40.6, Gibson % (Auto) 8.3, Eos % (Auto) 1.1, [...] Clarity Clear, Urine pH 6.0, Ur Specific Voca 1.010, Urine Protein Negative, Urine Glucose (UA) [...] surgeries including bowel resectionwho presents to the [facility] ED on 03/16/23 with history of [...] 75 minutes. Charges/Coding Visit Charges Inpatient E&M: 76117 Init Hosp L3 03/16/23 0631 <Electronically signed [...] MD; Dr. Kentrell Dhaliwal MD ~* Signed [facility] Work Phone: 1([phone]) 647-304706-30-2023 Discharge summary Author Jose Romy [facility] March 16, 2023 6:56am Note Date/Time March 16, 2023 3:47 am [facility] Medical Records Department [address] [place] [address] Emergency Department Summary 03/16/23 MR#: [id number] Acct: [id number] Name: ADINA ESCOBAR Rep #:[id number] : 1950 72 From: Jose Stanton MD PCP: Dr. Kentrell Dhaliwal MD Status:ADM IN [facility] HPI HPI - GI History of Present [...] them was due to adhesions she states. [facility] Medical History (Updated 03/16/23 @ 06:01 by [...] [From Levaquin] AdvReac Vomiting Verified 12/11/22 22:27 Jbsofon-CWD-GjJ Reductase AdvReac NEEDS Verified 12/11/22 22:27 Inhibitor [...] % (Auto) 48.5 Lymph % (Auto) 40.6 Gibson % (Auto) 8.3 Eos % (Auto) 1.1 [...] Clarity Clear Urine pH 6.0 Ur Specific Voca 1.010 Urine Protein Negative Urine Glucose (UA) [...] Signed: Gertrude Brasher MD at 5:35 EDT Reading Location ID and State: [facility] / [place] Tel , Service support , Management Discussion w/another healthcare provider: Hospitalist and [employer]eter (Surgery) Discharge Plan Dx/Rx/DC Orders Clinical Impression: Partial small bowel obstruction Disposition Disposition: Acute Care Hospital [facility] What to do if you have Problems For any increased pain, shortness of breath, bleeding, nausea or vomiting, chestpain, or any unexpected problems, contact your Primary Care Provider. Call [facility] ([phone]) or report to the closest Emergency Room. [...] cc: Dr. Kentrell Dhaliwal MD ~* Signed [facility] Work Phone: 1([phone]) 213-287505-15-2023 Miscellaneous Notes* Telephone Encounter - Josep Drew [...] Diarrhea Omnicef [Cefdinir] Diarrhea Prednisone GI Upset Wypxksl-Irp-Twp Red* Diarrhea Sulfa (Sulfonamide * Other: See Comments Leg pain Shellfish Containin* Swelling (home) [phone] (cell) Last Office Visit Date: 11/23/2022 Last Distance Health Visit: Visit date not found Future Appointment: 05/25/2023 The patients preferred pharmacy has been captured for this encounter? yes Request is for script(s) to be escript to pharmacy. Josep Drew MA refill [facility] Miscellaneous Notes* Telephone Encounter - Husam Grant [...] Diarrhea Omnicef [Cefdinir] Diarrhea Prednisone GI Upset Jtbcsru-Ggd-Aky Red* Diarrhea Sulfa (Sulfonamide * Other: See Comments Leg pain Shellfish Containin* Swelling (home) [phone] (cell) Last Office Visit Date: 11/23/2022 Last Distance Health Visit: Visit date not found Future Appointment: 05/25/2023 The patients preferred pharmacy has been captured for this encounter? yes Request is for script(s) to be escript to pharmacy. [facility] [place] Husam Grant MA documented in [facility]Bar[facility]03-[facility]23 Miscellaneous Notes* Telephone Encounter - Kentrell Dhaliwal II, MD - 12/13/2022 9:22 AM EDT Done * Telephone Encounter - Josep Drew MA - 12/12/2022 10:15 AM EDT Patient called stating she was recently seen in [facility] ER due to abdominal pain. CT Scan done and patient was informed that pain was due to recent surgery where stricture is starting to close. Patient was prescribed Bentyl x 5 days. Patient is asking if Dr. Dhaliwal could please call in Zofran and Bentyl for her? Please advise Josep Drew MA documented in this encounterBarberton Citizens Hospital03-28-[address] Anderson [facility] December 11, 2022 11:52pm Note Date/Time December 11, 2022 10: 21pm [facility] Medical Records Department [address] [place] [address] Emergency Department Summary 12/11/22 MR#: [id number] Acct: [id number] Name: ADINA ESCOBAR Rep #:[id number] : [...] Prior similar symptoms: Yes Recent Illness/Hospitalization: No [facility] Medical History (Updated 12/11/22 @ 23:50 by [...] [From Levaquin] AdvReac Vomiting Verified 12/11/22 22:27 Xhasjsw-CCN-IrG Reductase AdvReac NEEDS Verified 12/11/22 22:27 Inhibitor [...] Oxygen Delivery Method Room Air Room Air [facility] History & Record Review Discussion w/independent historian: [...] % (Auto) 57.1 Lymph % (Auto) 30.6 Gibson % (Auto) 9.3 Eos % (Auto) 2.1 [...] your Primary Care Provider. Call [facility] ([phone]) or report to the closest Emergency Room. Call 911 if necessary. 12/11/22 999 <Electronically signed by Mika Anderson MD> Cosigner Signature (if applicable): CC: No Primary Care Physician ~ Signed [facility] Work Phone: 1(822) 494-805703-27-2023 Miscellaneous Notes* Telephone Encounter - Husam Grant [...] Diarrhea Omnicef [Cefdinir] Diarrhea Prednisone GI Upset Gtedraw-Pfk-Kyg Red* Diarrhea Sulfa (Sulfonamide * Other: See Comments Leg pain Shellfish Containin* Swelling (home) [phone] (cell) Last Office Visit Date: 11/23/2022 Last [facility] Health Visit: Visit date not found Future Appointment: 05/25/2023 The patients preferred pharmacy has been captured for this encounter? yes Request is for script(s) to be escript to pharmacy. Husam Grant MA documented in this encounterBarberton Citizens Hospital03-09-2023 Miscellaneous Notes* Telephone Encounter - Husam Grant [...] or sooner if needed. documented in this encounterBarberton Citizens Hospital03-09-2023 Instructions* Patient Instructions* Kentrell Dhaliwal II, MD - 11/23/2022 11:06 AM EST Please consider having the following Health Maintenance testing completed: PNEUMOCOCCAL: 65+(1 - PCV) DILATED RETINAL EXAM DTAP,TDAP,TD(1 - Tdap) MAMMOGRAM COLORECTAL CANCER SCREENING SHINGRIX VACCINE(1 of 2) BONE DENSITY INFLUENZA(1) If your testing is not done at a [facility] facility please provide this office with the results of your testing. documented in this encounterBarberton Citizens Hospital03-09-2023 History of Present illness Narrative* Kentrell Dhaliwal II, MD - 11/23/2022 11:04 AM EST Images from the original note were not included. Kentrell Dhaliwal II, MD [address], [address] [place] [address] SUBJECTIVE Adina Escobar is a 72 year old [...] Diarrhea Omnicef [Cefdinir] Diarrhea Prednisone GI Upset Zzosvzu-Lbv-Gmm Red* Diarrhea Sulfa (Sulfonamide * Other: See [...] Kentrell Dhaliwal II, M.D. documented in this encounterBarberton Citizens Hospital02-27-2023 Miscellaneous Notes* Telephone Encounter - Josep Drew [...] Diarrhea Omnicef [Cefdinir] Diarrhea Prednisone GI Upset Etbyufs-Rjs-Lkv Red* Diarrhea Sulfa (Sulfonamide * Other: See Comments Leg pain Shellfish Containin* Swelling (home) [phone] (cell) Last Office Visit Date: 08/02/2022 Last [facility] Visit: Visit date not found Future Appointment: 11/17/2022 The patients preferred pharmacy has been captured for this encounter? yes Request is for script(s) to be escript to pharmacy. Josep Drew MA Patient called requesting the following refill Refill(s) Requested: Requested Prescriptions No prescriptions requested or ordered in this encounter ALLERGIES Allergen Reactions Latex Anaphylaxis Abilify [Aripiprazo* Other: See Comments Muscles couldn't get up Codeine Diarrhea Compazine [Prochlor* Myalgia Levaquin [Levofloxa* Diarrhea Omnicef [Cefdinir] Diarrhea Prednisone GI Upset Ekhoqpn-Zat-Xcr Red* Diarrhea Sulfa (Sulfonamide * Other: See Comments Leg pain Shellfish Containin* Swelling (home) [phone] (cell) Last Office Visit Date: 08/02/2022 Last [facility] Visit: Visit date not found Future Appointment: 11/17/2022 The patients preferred pharmacy has been captured for this encounter? yes Request is for script(s) to be escript to pharmacy. Josep Drew MA refill documented in this encounterBarberton Citizens Hospital02-14-2023 Miscellaneous Notes* Telephone Encounter - Josep Drew [...] Diarrhea Omnicef [Cefdinir] Diarrhea Prednisone GI Upset Cluqjqy-Uej-Glu Red* Diarrhea Sulfa (Sulfonamide * Other: See Comments Leg pain Shellfish Containin* Swelling (home) [phone] (cell) Last Office Visit Date: 08/02/2022 Last [facility] Health Visit: Visit date not found Future Appointment: 11/23/2022 The patients preferred pharmacy has been captured for this encounter? yes Request is for script(s) to be escript to pharmacy. Josep Drew MA refill documented in this encounterBarberton Citizens Hospital12-20-2022 Miscellaneous Notes* Telephone Encounter - Kentrell Dhaliwal II, MD - 09/05/2022 5:42 PM EST Done * Telephone Encounter - Josep Drew MA - 09/05/2022 11:05 AM EST Patient called requesting medication for UTI. States burning, frequency, pressure and urgency x 2 days. Please advise Josep Drew MA documented in this encounterBarberton Citizens Hospital11-29-2022 Miscellaneous Notes* Telephone Encounter - Husam Grant [...] Diarrhea Omnicef [Cefdinir] Diarrhea Prednisone GI Upset Gjvyvkv-Qns-Lfq Red* Diarrhea Sulfa (Sulfonamide * Other: See Comments Leg pain Shellfish Containin* Swelling (home) [phone] (cell) Last Office Visit Date: 08/02/2022 Last [facility] Health Visit: Visit date not found Future Appointment: Visit date not found The patients preferred pharmacy has been captured for this encounter? yes Request is for script(s) to be escript to pharmacy. Husam Grant MA documented in this encounterBarberton Citizens Hospital11-21-2022 Miscellaneous Notes* Telephone Encounter - Josep Drew MA - 08/07/2022 11:03 AM EST Patient called stating she had an appointment with Dr. Herrera and was told not to start the Carafatebecause it could cause constipation. Dr. Herrera informed patient if pain, nausea or vomiting returned she needed to go to [facility] for evaluation and treatment. Patient states she is sticking to a soft diet at this time and seems to be doing OK at this time. Josep Drew MA documented in this encounterBarberton Citizens Hospital11-07-2022 Miscellaneous Notes* Telephone Encounter - Rosi Herbert [...] abdomen. Rosi Herbert RN documented in this encounterBarberton Citizens Hospital11-04-2022 Instructions* Patient Instructions* Travon Rene DO - [...] 64 ounces of Gatorade. documented in this encounterBarberton Citizens Hospital11-04-2022 History and physical note * Travon Rene [...] Diarrhea Omnicef [Cefdinir] Diarrhea Prednisone GI Upset Pnhclav-Dvm-Hal Red* Diarrhea Sulfa (Sulfonamide * Other: See [...] which included preparing to see the patient, afzo-dq-lrln patient care, completing clinical documentation, obtaining and/or reviewing separately obtained history, performing a medically appropriate examination, counseling and educating the pat ient/family/caregiver, and ordering medications, tests, or procedures. documented in this encounterBarberton Citizens Hospital11-01-2022 History of Present illness Narrative* Josep Drew MA - 07/18/2022 2:34 PM EDT Spoke to patient regarding recent Hospital stay.. Patient states she has follow up with Dr. Thornton who is trying to make her an appointment with another provider up dundee. TCM appointment made with Dr. Dhaliwal. Patient states she is doing better. Still fatigued. Josep Drew MA * Silvia Hicks RN - 07/18/2022 1:22 PM EDT 1st attempt to contact patient for an update. Left message for patient. Silvia Hicks RN 21:22 PM documented in this encounterBarberton Citizens Hospital10-31-2022 Hospital course Narrative * Provider [facility] - 07/17/2022 11:50 [place] [address] HEALTH INFORMATION MANAGEMENT DISCHARGE SUMMARY Patient: ADINA ESCOBAR I ANUJA WALKER M.D. [id number] [age] F Status: ADM IN [facility] 2922-A Date of Admission: 07/14/22 Discharge Summary [...] By: ANUJA WALKER M.D. Tests performed at: [place] [address] documented in this encounterBarberton Citizens Hospital10-31-2022 History of Present illness Narrative* Kentrell Pacheco MD - 07/17/2022 11:46 [place] [address] HEALTH INFORMATION MANAGEMENT PROGRESS NOTE Patient: ADINA ESCOBAR I KENTRELL PACHECO M.D. [id number] [age] F Status: ADM IN [facility] 2922-A DATE OF PROGRESS NOTE: 07/17/2022 TIME: [...] have to go up to [facility] because of the complex nature of her [...] will do regular diet. Report#: Dict ID [id number] / Int ID [id number] <Electronically signed by KENTRELL PACHECO M.D.> KENTRELL PACHECO M.D. cc: KENTRELL PACHECO M.D. << Signature on File>> Reported By: KENTRELL PACHECO M.D. Signed By: KENTRELL PACHECO M.D. Tests performed at: [address] [address] * Kentrell Pacheco MD - 07/17/2022 9:27 [place] [address] HEALTH INFORMATION MANAGEMENT PROGRESS NOTE Patient: ADINA ESCOBAR I KENTRELL PACHECO M.D. [id number] [age] F Status: ADM IN [facility]22-A DATE OF PROGRESS NOTE: 07/16/2022 LOCATION: [facility]. SUBJECTIVE: 72-year-old white female, less discomfort, nausea, [...] on her again tomorrow. Report#: Dict ID [id number] / Int ID [id number] <Electronically signed by KENTRELL PACHECO M.D.> KENTRELL PACHECO M.D. cc: KENTRELL PACHECO M.D. << Signature on File>> Reported By: KENTRELL PACHECO M.D. Signed By: KENTRELL PACHECO M.D. Tests performed at: [address] [address] * Provider [facility] - 07/16/2022 3:17 [place] [address] PROGRESS NOTES Patient: ADINA ESCOBAR I ANUJA WALKER M.D. [id number] [age] F Status: ADM IN [facility] 2922-A Report Date & Time: 07/16/22 1517 [...] % (Auto) 16.0 - 48.0 % 39.6 Gibson % (Auto) 4.3 - 11.2 % 9.0 Eos % (Auto) 0.5 - 4.9 % 5.3 H Baso % (Auto) 0.0 - 1.0 % 1.0 Neut # (Auto) 1.40 - 6.50 x10(3) 2.90 Lymph # (Auto) 1.00 - 3.50 x10(3) 2.50 Gibson # (Auto) 0.30 - 0.80 x10(3) 0.60 [...] MG HS 07/14 2100 AC 07/15 PO 211 Morphine Sulfate 4 MG Q3HPRN PRN 07/14 1100 AC 07/16 IV 0916 Ertapenem 1 GM Q24H 07/14 1000 I 07/16 Sodium Chloride 100 ML IV 0908 Alprazolam 1 MG BID 07/14 0900 AC 07/16 PO 09 Apixaban 5 MG BID 07/14 0900 I 07/16 PO 0903 Bupropion HCl 150 MG DAILY 07/14 0900 AC 07/16 PO 0904 Ezetimibe 10 MG QDAY 07/14 0900 AC 07/16 PO 0905 Pantoprazole Sodium 40 MG QDAY 07/14 0900 AC 07/16 Sodium Chloride 10 ML IV [...] Procedure Date/time Status ABDOMEN (KUB)1 VIEW 07/17 040 Active FULL LIQUID DIET 07/16 L Active [...] By: ANUJA WALKER M.D. Tests performed at: [address] [address] * Chelle Anton MD - 07/15/2022 2:51 [place] [address] HEALTH INFORMATION MANAGEMENT PROGRESS NOTE Patient: ADINA ESCOBRA I CHELLE ANTON M.D. [id number] [age] F Status: ADM IN [facility] 2922-A DATE OF PROGRESS NOTE: 07/15/2022 I [...] Surgery on this admission. Report#: Dict ID [id number] / Int ID [id number] <Electronically signed by CHELLE ANTON M.D.> CHELLE ANTON M.D. cc: CHELLE ANTON M.D. << Signature on File>> Reported By: CHELLE ANTON M.D. Signed By: CHELLE ANTON M.D. Tests performed at: [place] [address] * Kentrell Pacheco MD - 07/15/2022 12:48 [place] [address] HEALTH INFORMATION MANAGEMENT PROGRESS NOTE Patient: ADINA ESCOBAR I KENTRELL PACHECO M.D. [id number] [age] F Status: ADM IN [facility] 2922-A DATE OF PROGRESS NOTE: 07/15/2022 Tara doing the note. SUBJECTIVE: 72-year-old white female, did have a bowel movement yesterday, feeling a little better today. OBJECTIVE: VITAL SIGNS: Stable, afebrile. ABDOMEN: No acute peritoneal signs. KUB pending today. ASSESSMENT: 72-year-old white female, partial small bowel obstruction, maybe improving. PLAN: To slowly advance diet as tolerated. Report#: Dict ID [id number] / Int ID [id number] <Electronically signed by KENTRELL PACHECO M.D.> KENTRELL PACHECO M.D. cc: KENTRELL PACHECO M.D. << Signature on File>> Reported By: KENTRELL PACHECO M.D. Signed By: KENTRELL PACHECO M.D. Tests performed at: [address] [address] * Provider [facility] - 07/15/2022 10:48 [place] [address] PROGRESS NOTES Patient: ADINA ESCOBAR I ANUJA WALKER M.D. [id number] [age] F Status: ADM IN [facility] [...] By: ANUJA WALKER M.D. Tests performed at: [place] [address] documented in this encounterBarberton Citizens Hospital10-31-2022 Hospital Discharge instructions* Instructions* Provider [facility] - 07/17/2022 11:29 [place] [address] HEALTH INFORMATION MANAGEMENT IP DISCHARGE INSTRUCTIONS Patient: ADINA ESCOBAR I ANUJA WALKER M.D. [id number] [age] F Status: ADM IN [facility] 2922-A Date of Admission: 07/14/22 Date of [...] #10 TAB, Ref 0 Prescribed by STUART TAYLOR D.O. on 04/21/22 Last Taken: At an [...] SUGGESTIONS. THANK YOU FOR CHOOSING [facility]. << Signature on File>> Reported By: ANUJA WALKER M.D. Signed By: ANUJA WALKER M.D. Tests performed at: [place] [address] documented in this encounterBarberton Citizens Hospital10-31-2022 Miscellaneous Notes* Telephone Encounter - Husam Grant [...] Diarrhea Omnicef [Cefdinir] Diarrhea Prednisone GI Upset Rpokbni-Skn-Dbl Red* Diarrhea Sulfa (Sulfonamide * Other: See Comments Leg pain Shellfish Containin* Swelling (home) [phone] (cell) Last Office Visit Date: 05/30/2022 Last [facility] Visit: Visit date not found Future Appointment: Visit date not found The patients preferred pharmacy has been captured for this encounter? yes Request is for script(s) to be escript to pharmacy. Husam Grant MA documented in this encounterBarberton Citizens Hospital10-28-20[place] [address] HEALTH INFORMATION MANAGEMENT CONSULTATION Patient: ADINA ESCOBAR I KENTRELL PACHECO M.D. [id number] [age] F Status: ADM IN [facility] 2922-A DATE OF CONSULTATION: 07/14/2022 LOCATION: [facility]. REQUESTING PHYSICIAN: Hospitalist. HISTORY OF PRESENT ILLNESS: [...] that. She gets her colonoscopies done in [place]. 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 So, we will follow along with the hospitalist and check daily films. Report#: Dict ID [id number] / Int ID [id number] 07/16/22 0836 KENTRELL PACHECO M.D. cc: KENTRELL PACHECO M.D. << Signature on File>> Reported By: KENTRELL PACHECO M.D. Signed By: KENTRELL PACHECO M.D. Tests performed at: [place] [address] [facility]10-28-[facility] Consult note* Kentrell Pacheco MD - 07/14/2022 5:02 [place] [address] HEALTH INFORMATION MANAGEMENT CONSULTATION Patient: ADINA ESCOBAR I TARA,KENTRELL Harrison M.D. [id number] [age] F Status: ADM IN [facility]A DATE OF CONSULTATION: 07/14/2022 LOCATION: [facility]. REQUESTING PHYSICIAN: Hospitalist. HISTORY OF PRESENT ILLNESS: [...] that. She gets her colonoscopies done in [place]. 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 So, we will follow along with the hospitalist and check daily films. Report#: Dict ID [id number] / Int ID [id number] <Electronically signed by KENTRELL PACHECO M.D.> 07/16/22 0836 KENTRELL PACHECO M.D. cc: KENTRELL PACHECO M.D. << Signature on File>> Reported By: KENTRELL PACHECO M.D. Signed By: KENTRELL PACHECO M.D. Tests performed at: [place] [address] [place], [place] [address] * Chelle Anton MD - 07/14/2022 1:00 [place] [address] HEALTH INFORMATION MANAGEMENT CONSULTATION Patient: ADINA ESCOBAR I CHELLE ANTON M.D. [id number] [age] F Status: ADM IN [facility] 2922-A DATE OF CONSULTATION: 07/14/2022 ADDITIONAL REFERRING [...] and continue supportive care. Report#: Dict ID [id number] / Int ID [id number] <Electronically signed by CHELLE ANTON M.D.> 07/15/22 0914 CEHLLE ANTON M.D. cc: CHELLE ANTON M.D. << Signature on File>> Reported By: CHELLE ANTON M.D. Signed By: CHELLE ANTON M.D. Tests performed at: [place] [address] documented in this encounterBarberton Citizens Hospital10-28-2022 [place] [address] HEALTH INFORMATION MANAGEMENT CONSULTATION Patient: ADINA ESCOBAR I CHELLE ANTON M.D. [id number] [age] F Status: ADM IN [address] [place], [place] [address]-A DATE OF CONSULTATION: 07/14/2022 ADDITIONAL REFERRING PHYSICIAN: [...] and continue supportive care. Report#: Dict ID [id number] / Int ID [id number] 07/15/22 0914 CHELLE ANTON M.D. cc: CHELLE ANTON M.D. << Signature on File>> Reported By: CHELLE ANTON M.D. Signed By: CHELLE ANTON M.D. Tests performed at: [address] [address] [facility]yNov[facility]10-28-2022 History and physical note* Provider [facility] - 07/14/2022 2:56 [place] [address] HISTORY AND PHYSICAL Patient: ADINA ESCOBAR I Attending: ADRIEN BROWN M.D. PCP: KENTRELL DHALIWAL II, M.D. [id number] [age] F Status: ADM IN [facility] 2922-A Report Date & Time: 07/14/22 0256 [...] levofloxacin (From LEVAQUIN) (Severe, DIARRHEA/ DIAPHORESIS/VOMITING 07/13/22) Nzbomug-OIQ-VfE Reductase Inhibitor (Intermediate, LEG PAIN, DIFFICULTY AMBULATING [...] % (Auto) 16.0 - 48.0 % 36.4 Gibson % (Auto) 4.3 - 11.2 % 7.4 Eos % (Auto) 0.5 - 4.9 % 0.8 Baso % (Auto) 0.0 - 1.0 % 0.9 Neut # (Auto) 1.40 - 6.50 x10(3) 5.80 Lymph # (Auto) 1.00 - 3.50 x10(3) 3.90 H Gibson # (Auto) 0.30 - 0.80 x10(3) 0.80 [...] pH (5.0 - 8.0) 6.0 Ur Specific Voca (1.001 - 1.035) 1.010 Urine Protein (NEGATIVE [...] 18 100 07/14 0015 118 133/108 98 07/134 97.6 94 18 158/96 100 07/132 97.6 94 18 158/96 100 07/13 215 97.6 94 18 158/96 100 Intake & Output 07/14 0700 07/13 1500 Intake Total Output Total Balance [...] By: ADRIEN BROWN M.D. Tests performed at: [address] [address] documented in this encounterBarberton Citizens Hospital10-24-2022 Miscellaneous Notes* Telephone Encounter - Kentrell Dhaliwal [...] advise Josep Drew MA documented in this encounterBarberton Citizens Hospital10-21-2022 Miscellaneous Notes* Telephone Encounter - Husam Grant [...] away. Husam Grant MA documented in this encounterBarberton Citizens Hospital10-18-2022 Miscellaneous Notes* Telephone Encounter - Liliana Sainz [...] Diarrhea Omnicef [Cefdinir] Diarrhea Prednisone GI Upset Midycjx-Uum-Hki Red* Diarrhea Sulfa (Sulfonamide * Other: See Comments Leg pain Shellfish Containin* Swelling (home) [phone] (cell) Last Office Visit Date: 02/28/2022 Last [facility] Health Visit: Visit date not found Future Appointment: Visit date not found The patients preferred pharmacy has been captured for this encounter? yes Request is for script(s) to be escript to pharmacy. Liliana Sainz documented in this encounterBarberton Citizens Hospital10-05-2022 Miscellaneous Notes* Telephone Encounter - Kentrell Dhaliwal [...] advise Husam Grant MA documented in this encounterBarberton Citizens Hospital10-03-2022 Miscellaneous Notes* Telephone Encounter - Husam Grant [...] Diarrhea Omnicef [Cefdinir] Diarrhea Prednisone GI Upset Enqorzd-Dai-Lrh Red* Diarrhea Sulfa (Sulfonamide * Other: See Comments Leg pain Shellfish Containin* Swelling (home) [phone] (cell) Last Office Visit Date: 05/30/2022 Last Distance Health Visit: Visit date not found Future Appointment: 07/20/2022 The patients preferred pharmacy has been captured for this encounter? yes Request is for script(s) to be escript to pharmacy. Husam Grant MA documented in this encounterBarberton Citizens Hospital09-20-2022 Miscellaneous Notes* Telephone Encounter - Husam Grant [...] Diarrhea Omnicef [Cefdinir] Diarrhea Prednisone GI Upset Cpbikdu-Xoo-Ait Red* Diarrhea Sulfa (Sulfonamide * Other: See Comments Leg pain Shellfish Containin* Swelling (home) [phone] (cell) Last Office Visit Date: 02/28/2022 Last [facility] Visit: Visit date not found Future Appointment: Visit date not found The patients preferred pharmacy has been captured for this encounter? yes Request is for script(s) to be escript to pharmacy. Husam Grant MA documented in this encounterBarberton Citizens Hospital09-20-2022 Miscellaneous Notes* Telephone Encounter - Josep Drew [...] Diarrhea Omnicef [Cefdinir] Diarrhea Prednisone GI Upset Zeyarri-Awo-Zka Red* Diarrhea Sulfa (Sulfonamide * Other: See Comments Leg pain Shellfish Containin* Swelling (home) [phone] (cell) Last Office Visit Date: 05/30/2022 Last [facility] Health Visit: Visit date not found Future Appointment: 07/20/2022 The patients preferred pharmacy has been captured for this encounter? yes Request is for script(s) to be escript to pharmacy. Josep Drew MA refill documented in this encounterBarberton Citizens Hospital09-13-2022 History of Present illness Narrative* Kentrell Dhaliwal II, MD - 05/30/2022 10:27 AM EDT Transitional Care Management TCM Eligibility Documentation The following information was gathered during the initial Patient Outreach Encounter. No flowsheet data found. Summary Discharged from: [facility] Admit Date: 05/10/2022 Admitted for: Syncope R/T [...] 30, 2022 10:27 AM documented in this encounterBarberton Citizens Hospital09-02-2022 Miscellaneous Notes* Telephone Encounter - Husam Grant [...] advise Josep Drew MA documented in this encounterBarberton Citizens Hospital09-01-2022 Miscellaneous Notes* Telephone Encounter - Josep Drew [...] Diarrhea Omnicef [Cefdinir] Diarrhea Prednisone GI Upset Jyimezi-Inv-Wgp Red* Diarrhea Sulfa (Sulfonamide * Other: See Comments Leg pain Shellfish Containin* Swelling (home) [phone] (cell) Last Office Visit Date: 04/19/2022 Last Distance Health Visit: Visit date not found Future Appointment: 05/24/2022 The patients preferred pharmacy has been captured for this encounter? yes Request is for script(s) to be escript to pharmacy. Josep Drew MA refill documented in this encounterBarberton Citizens Hospital08-24-20[address] [place] [address] HEALTH INFORMATION MANAGEMENT CONSULTATION Patient: ADINA ESCOBAR I KENTRELL PACHECO M.D. [id number] [age] F Status: ADM [facility] 2054-A DATE OF CONSULTATION: 05/09/2022 REQUESTING PHYSICIAN: Hospitalist [facility] HISTORY OF PRESENT ILLNESS: A 71-year-old [...] colonoscopy 5 to 10 years ago in [place], very difficult to get through. They recommended [...] episodes. CARDIAC: Negative. RESPIRATORY: Negative. BREAST: Negative. TELEMARKETING AGENT: Negative. UROLOGIC: Negative. GI: Positive only for [...] be available as needed. Report#: Dict ID [id number] / Int ID [id number] 05/10/22 1055 KENTRELL PACHECO M.D. cc: KENTRELL PACHECO M.D. << Signature on File>> Reported By: KENTRELL PACHECO M.D. Signed By: KENTRELL PACHECO M.D. Tests performed at: [facility] [address] [place], [place] [address] ImazrNovant Health [facility]08-23-20[place] [address] HEALTH INFORMATION MANAGEMENT CONSULTATION Patient: ADINA ESCOBAR KATELYN M Romelia [id number] [age] F [facility] DATE OF CONSULTATION: 05/09/2022 TIME: 0900. [...] HISTORY: States that her father from an MS at 72. Her mom had emphysema. SOCIAL HISTORY: Socially, she has never been a smoker. No alcohol or recreational drug use. Lives at home with her sister and xgfnfac-kz-fzu. REVIEW OF SYSTEMS: As per HPI. The [...] EXTREMITIES: With no cyanosis or edema. SKIN: [place], warm, dry. LABORATORY DATA: WBC 17.6 which [...] PE as (more content not included)...[facility]08-23-2022 History of Present illness Narrative* MAKSIM Valenzuela - 05/09/2022 10:53 AM EDT GLENNY scheduled for 05/24/22 Zoloft, Ambien, Zanaflex, and Levbid discontinued. documented in this encounterBarberton Citizens Hospital08-19-2022 Miscellaneous Notes* Telephone Encounter - Kentrell Dhaliwal II, MD - 05/05/2022 5:11 PM EDT resent * Telephone Encounter - Josep Drew MA - 05/05/2022 3:50 PM EDT Patient called stating the RX for Ambien that DR. Dhaliwal sent to [facility] was not received by the Pharmacy. Could Dr. Dhaliwal please resend? Josep Drew MA documented in this encounterBarberton Citizens Hospital08-19-2022 Miscellaneous Notes* Telephone Encounter - Husam Grant MA - 05/05/2022 3:53 PM EDT [employer] fax in response to patient's Tizanidine HCL 4mg tablet. [employer] states that no prior authorization is needed for the amount listed (4 mg tablet Tizanidine HCL). Husam Grant MA documented in this encounterBarberton Citizens Hospital08-19-2022 Miscellaneous Notes* Telephone Encounter - Josep Drew [...] Diarrhea Omnicef [Cefdinir] Diarrhea Prednisone GI Upset Rczufmr-Msz-Chg Red* Diarrhea Sulfa (Sulfonamide * Other: See Comments Leg pain Shellfish Containin* Swelling (home) [phone] (cell) Last Office Visit Date: 02/28/2022 Last [facility] Health Visit: Visit date not found Future Appointment: Visit date not found The patients preferred pharmacy has been captured for this encounter? yes Request is for script(s) to be escript to pharmacy. Josep Drew MA refill documented in this encounterBarberton Citizens Hospital08-18-2022 Miscellaneous Notes* Telephone Encounter - Gladys Mauricio RN - 05/04/2022 10:04 AM EDT Called to complete ER follow up but patient did not answer and VM was left for return call. Patienthad an ER visit at [facility] on 05/[facility]/22 for UTI. Gladys Mauricio, RN documented in this encounterBarberton Citizens Hospital08-18-2022 Miscellaneous Notes* Telephone Encounter - Husam Grant [...] Diarrhea Omnicef [Cefdinir] Diarrhea Prednisone GI Upset Tmkvkbq-Pna-Nzo Red* Diarrhea Sulfa (Sulfonamide * Other: See Comments Leg pain Shellfish Containin* Swelling (home) [phone] (cell) Last Office Visit Date: 04/19/2022 Last [facility] Visit: Visit date not found Future Appointment: 07/20/2022 The patients preferred pharmacy has been captured for this encounter? yes Request is for script(s) to be escript to pharmacy. Husam Grant MA documented in this encounterBarberton Citizens Hospital08-17-2022 Miscellaneous Notes* Telephone Encounter - Kentrell Dhaliwal [...] she would like prescription sent to [facility] in [place]. Prescription is either Zetia or Colestid. Husam Grant MA documented in this encounterBarberton Citizens Hospital08-08-2022 History of Present illness Narrative* Jasmin Schmidt RN - 04/24/2022 2:16 PM EDT Patient can be scheduled for ER Follow up if calls back to . [facility] FOLLOW UP INITIAL CONTACT Provider Action/FYI: SUMMARY: -Patient discharged from [facility] ED on 04/21/2022. -Follow up appointment . [...] culture. Jasmin Schmidt RN documented in this encounterBarberton Citizens Hospital08-05-2022 Emergency department Note * Stuart Taylor - 04/21/2022 2:15 [place] [address] HEALTH INFORMATION MANAGEMENT EMERGENCY DEPARTMENT REPORT Patient: ADINA ESCOBAR I STUART TAYLOR D.O. [id number] [age] F Status: DEP ER ED [...] home, some Zofran for nausea. I did cosmetic counselor her if she has worsening symptoms, [...] get a stool culture. Report#: Dict ID [id number] / Int ID [id number] <Electronically signed by STUART TAYLOR D.O.> 04/21/22 1705 STUART TAYLOR D.O. cc: STUART TAYLOR D.O.; KENTRELL DHALIWAL II, M.D. << Signature on File>> Reported By: STUART TAYLOR D.O. Signed By: STUART TAYLOR D.O. Tests performed at: [address] [address] documented in this encounterBarberton Citizens Hospital08-05-2022 Miscellaneous Notes* Telephone Encounter - Josep Drew MA - 04/21/2022 1:05 PM EDT Fax received from [facility] regarding Prior Auth for TIZANIDINE HCL 4 mg tablet. NO PRIOR AUTH NEEDED. Josep Drew MA documented in this encounterBarberton Citizens Hospital08-04-2022 Miscellaneous Notes* Telephone Encounter - Kentrell Dhaliwal II, MD - 04/20/2022 4:35 PM EDT I would suggest that we send prescription for a couple of weeks for local pharmacy to see how she does with the medication before we send it to [facility] I can send a 1 week supply of Colestid to what ever local pharmacy she would like documented in this encounterBarberton Citizens Hospital08-03-2022 History of Present illness Narrative* Kentrell Dhaliwal II, MD - 04/19/2022 1:56 PM EDT Images from the original note were not included. Kentrell Dhaliwal II, MD [address], [address] [place] [address] NOEMI Escobar is a 71 year old [...] Diarrhea Omnicef [Cefdinir] Diarrhea Prednisone GI Upset Ikzlnqg-Gis-Nvq Red* Diarrhea Sulfa (Sulfonamide * Other: See [...] arise. 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 documented in this encounterBarberton Citizens Hospital08-03-2022 Instructions* Patient Instructions* Kentrell Dhaliwal II, MD - 04/19/2022 1:10 PM EDT Please consider having the following Health Maintenance testing completed: PNEUMOCOCCAL: 65+(1 - PCV) DILATED RETINAL EXAM DTAP,TDAP,TD(1 - Tdap) MAMMOGRAM COLORECTAL CANCER SCREENING SHINGRIX VACCINE(1 of 2) BONE DENSITY If your testing is not done at a [facility] facility please provide this office with the results of your testing. documented in this encounterBarberton Citizens Hospital07-19-2022 Miscellaneous Notes* Telephone Encounter - Husam Grant MA - 04/04/2022 7:59 AM EDT Pharmacy faxed requesting the following refill Refill(s) Requested: Pending Prescriptions Disp Refills SERTRALINE 50 MG TABLET 30 tablet 0 Sig: TAKE 1 TABLET BY MOUTH ONCE DAILY GENNA: Yes ALLERGIES Allergen Reactions Latex Anaphylaxis Codeine Diarrhea Compazine [Prochlor* Myalgia Levaquin [Levofloxa* Diarrhea Omnicef [Cefdinir] Diarrhea Prednisone GI Upset Loyronn-Snn-Qin Red* Diarrhea Sulfa (Sulfonamide * Other: See Comments Leg pain (home) [phone] (cell) Last Office Visit Date: 02/28/2022 Last [facility] Visit: Visit date not found Future Appointment: 04/19/2022 The patients preferred pharmacy has been captured for this encounter? yes Request is for script(s) to be escript to pharmacy. Husam Grant MA documented in this encounterBarberton Citizens Hospital07-18-2022 Miscellaneous Notes* Telephone Encounter - Husam Grant [...] Diarrhea Omnicef [Cefdinir] Diarrhea Prednisone GI Upset Urycgud-Myp-Fhk Red* Diarrhea Sulfa (Sulfonamide * Other: See Comments Leg pain (home) [phone] (cell) Last Office Visit Date: 02/28/2022 Last [facility] Visit: Visit date not found Future Appointment: 04/19/2022 The patients preferred pharmacy has been captured for this encounter? yes Request is for script(s) to be escript to pharmacy. Husam Grant MA documented in this encounterBarberton Citizens Hospital07-05-2022 Miscellaneous Notes* Telephone Encounter - Husam Grant [...] Diarrhea Omnicef [Cefdinir] Diarrhea Prednisone GI Upset Exahvuf-Okp-Ccs Red* Diarrhea Sulfa (Sulfonamide * Other: See Comments Leg pain (home) [phone] (cell) Last Office Visit Date: 02/28/2022 Last [facility] Health Visit: Visit date not found Future Appointment: 04/19/2022 The patients preferred pharmacy has been captured for this encounter? yes Request is for script(s) to be escript to pharmacy. Husam Grant MA documented in this encounterBarberton Citizens Hospital06-16-2022 Miscellaneous Notes* Telephone Encounter - Josep Drew [...] else then she needs to call the filler picker for their recommendations on what to prescribe [...] advise Josep Drew MA documented in this encounterBarberton Citizens Hospital06-14-2022 NoteHNO ID: [id number] Author: Kentrell Dhaliwal II, MD Service: ? Author Type: Physician Type: Progress Notes Filed: 03/06/2022 8:53 PM Note Text: Kentrell Dhaliwal II, MD [address], [address] [place], [place] [id number] NOEMI Escobar is a 71 year old [...] [Cefdinir] Diarrhea - Prednisone GI Upset - Hodiegn-Xsg-Yrp Red* Diarrhea - Sulfa (Sulfonamide * Other: [...] diaphoretic. HENT: Head: Normo (more content not included)...[facility]06-14-2022 History of Present illness Narrative* Kentrell Dhaliwal II, MD - 02/28/2022 6:10 PM EDT Images from the original note were not included. Kentrell Dhaliwal II, MD [address], [place] [address] NOEMI Escobar is a 71 year old [...] Diarrhea Omnicef [Cefdinir] Diarrhea Prednisone GI Upset Gmhgtai-Zxa-Cqr Red* Diarrhea Sulfa (Sulfonamide * Other: See [...] Kentrell Dhaliwal II, M.D. documented in this encounterBarberton Citizens Hospital06-08-2022 Miscellaneous Notes* Telephone Encounter - Kentrell Dhaliwal [...] up Sunday. Liliana Sainz documented in this encounterBarberton Citizens Hospital05-20-2022 NoteHNO ID: [id number] Author: Maximo Benavides RN Service: ? Author Type: Registered Nurse Type: Progress Notes Filed: 02/06/2022 7:50 AM Note Text: TRANSITIONAL CARE MANAGEMENT (TCM) COMMUNITY MONITORING PROGRAM - JANESSA Provider Action/FYI: ? Unable to reach patient x 2 attempts Maximo Benavides RN SUMMARY: Pt discharged from [facility] on 02/01/2022 Admitted for: SBO Contact made with patient: No - 2nd unsuccessful attempt - end outreach and close encounter Repeat message left on cell phone/telephone answering device requesting patient return my call ([phone]). Outreach ended Maximo Benavides [facility]05-20-2022 Miscellaneous Notes* Telephone Encounter - Josep [...] Diarrhea Omnicef [Cefdinir] Diarrhea Prednisone GI Upset Tkbnlze-Ydv-Kwu Red* Diarrhea Sulfa (Sulfonamide * Other: See Comments Leg pain (home) [phone] (cell) Last Office Visit Date: 01/05/2022 Last [facility] Health Visit: Visit date not found Future Appointment: 04/19/2022 The patients preferred pharmacy has been captured for this encounter? yes Request is for script(s) to be escript to pharmacy. Josep Drew MA refill documented in this encounterBarberton Citizens Hospital05-20-2022 History of Present illness Narrative* Maximo Benavides RN - 02/03/2022 10:13 AM EDT TRANSITIONAL CARE MANAGEMENT (TCM) COMMUNITY MONITORING PROGRAM - JANESSA Provider Action/FYI: Unable to reach patient x 2 attempts Maximo Benavides RN SUMMARY: Pt discharged from [facility] on 02/01/2022 Admitted for: SBO Contact made with patient: No - 2nd unsuccessful attempt - end outreach and close encounter Repeat message left on cell phone/telephone answering device requesting patient return my call ([phone]). Outreach ended Maximo Benavides RN * Maximo Benavides RN - 02/02/2022 10:37 AM EDT TRANSITIONAL CARE MANAGEMENT (TCM) COMMUNITY MONITORING PROGRAM - JANESSA Provider Action/FYI: SUMMARY: Pt discharged from [facility] on 02/01/2022. Admitted for: SBO Contact made with patient: No - next outreach attempt will be on next business day Message left on cell phone/telephone answering device requesting patient return my call ([phone]). Outreach ended Maximo Benavides RN documented in this encounterBarberton Citizens Hospital05-19-2022 NotePatient Outreach (AGACM) ADINA ESCOBAR I ([id number]) 1950 F Date Time Provider Department 02/02/22 MAXIMO BENAVIDES During your visit today, we recorded the following information about you: Maximo Benavides RN 02/06/2022 7:50 AM Signed TRANSITIONAL CARE MANAGEMENT (TCM) COMMUNITY MONITORING PROGRAM - JANESSA Provider Action/FYI: SUMMARY: Pt discharged from [facility] on 02/01/2022. Admitted for: SBO Contact made with patient: No - next outreach attempt will be on next business day Message left on cell phone/telephone answering device requesting patient return my call ([phone]). Outreach ended DAVID Quick RN 02/06/2022 7:50 AM Signed TRANSITIONAL CARE MANAGEMENT (TCM) COMMUNITY MONITORING PROGRAM - JANESSA Provider Action/FYI: ? Unable to reach patient x 2 attempts Maximo Benavides RN SUMMARY: Pt discharged from [facility] on 02/01/2022 Admitted for: SBO Contact made with patient: No - 2nd unsuccessful attempt - end outreach and close encounter Repeat message left on cell phone/telephone answering device requesting patient return my call ([phone]). Outreach ended Maximo Benavides RN Allergies As of Date: 02/02/2022 Noted Allergy Reaction LATEX 06/22/2020 10 - Anaphylaxis CODEINE 06/22/2020 6 - Diarrhea COMPAZINE (PROCHLORPERAZINE) 06/22/2020 17 - Myalgia LEVAQUIN (LEVOFLOXACIN) 06/22/2020 6 - Diarrhea OMNICEF (CEFDINIR) 06/22/2020 6 - Diarrhea PREDNISONE 08/30/2021 8 - GI Upset PWQNBEP-GCT-IPG REDUCTASE INHIBIT*06/22/2020 6 - Diarrhea SULFA (SULFONAMIDE ANTIBIOTICS) 06/15/2020 14 - Other: See Comments Comments: Leg pain Date Reviewed: 01/17/2022 Reviewed by: Fifi Prather MA - Fully Assessed Reason for Visit: Transition Of Care [4074] Cmt: [facility] Discharged 02/01/2022. TCM Initial encounter Prescriptions [...] 08/30/2021 Encounter Status:Closed by MAXIMO BENAVIDES on 02/06/22[facility]05-19-2022 NoteHNO ID: [id number] Author: Maximo Benavides RN Service: ? Author Type: Registered Nurse Type: Progress Notes Filed: 02/06/2022 7:50 AM Note Text: TRANSITIONAL CARE MANAGEMENT (TCM) COMMUNITY MONITORING PROGRAM - [place] Provider Action/FYI: SUMMARY: Pt discharged from [facility] on 02/01/2022. Admitted for: SBO Contact made with patient: No - next outreach attempt will be on next day Message left on cell phone/telephone answering device requesting patient return my call ([phone]). Outreach ended Maximo Benavides, [facility]05-10-2022 Miscellaneous Notes* Telephone Encounter - Josep [...] Dr. Dhaliwal prescribed for her? Please advise Jsoep Drew MA documented in this encounterBarberton Citizens Hospital05-09-2022 Miscellaneous Notes* Telephone Encounter - Liliana Sainz - 01/23/2022 1:40 PM EDT Pharmacy faxed requesting the following refill Refill(s) Requested: Pending Prescriptions Disp Refills ALPRAZOLAM 1 MG TABLET 60 tablet 0 Sig: TAKE 1 TABLET BY MOUTH TWICE DAILY VIJI Class: C-IV GENNA: Yes ALLERGIES Allergen Reactions Latex Anaphylaxis Codeine Diarrhea Compazine [Prochlor* Myalgia Levaquin [Levofloxa* Diarrhea Omnicef [Cefdinir] Diarrhea Prednisone GI Upset Yvywuhf-Nih-Ybe Red* Diarrhea Sulfa (Sulfonamide * Other: See Comments Leg pain (home) [phone] (cell) Last Office Visit Date: 01/05/2022 Last [facility] Health Visit: Visit date not found Future Appointment: 04/19/2022 The patients preferred pharmacy has been captured for this encounter? yes Request is for script(s) to be escript to pharmacy. Liliana Sainz documented in this encounterBarberton Citizens Hospital05-09-2022 Miscellaneous Notes* Telephone Encounter - Josep Drew MA - 01/23/2022 1:23 PM EDT CHERIEI: Dr. Neff office called stating they will treat patient for IBS and abdominal pain however, they will not treat for SBO or liver issues. Josep Drew MA documented in this encounterBarberton Citizens Hospital05-03-2022 History of Present illness Narrative* Jaswant Moseley [...] Diarrhea Omnicef [Cefdinir] Diarrhea Prednisone GI Upset Oozcigd-Ozw-Ful Red* Diarrhea Sulfa (Sulfonamide * Other: See [...] understanding. Jaswant Moseley MD documented in this encounterBarberton Citizens Hospital05-01-2022 NoteHNO ID: [id number] Author: Kentrell Dhaliwal II, MD Service: ? Author Type: Physician Type: Progress Notes Filed: 01/15/2022 9:51 PM Note Text: Transitional Care Management TCM Eligibility Documentation The following information was gathered during the initial Patient Outreach Encounter. No flowsheet data found. Summary Discharged from: [facility] Admit Date: 12/26/21 Admitted for: Small bowel [...] leg: Normal. No raman (more content not included)...[facility]04-29-2022 Miscellaneous Notes* Telephone Encounter - Denita Thomas MA - 01/13/2022 4:09 PM EDT Patient has been informed. Denita Thomas MA * Telephone Encounter - Denita Thomas MA - 01/13/2022 4:09 PM EDT ----- Message from Kenrtell Dhaliwal II, MD sent at 01/13/2022 3:53 PM EDT ----- Aside from some incidental things that probably do not have any bearing on her pain the ultrasound is not showing any significant abnormality documented in this encounterBarberton Citizens Hospital04-29-2022 Miscellaneous Notes* Telephone Encounter - Denita [...] should think about going to see a filler picker. * Telephone Encounter - Susanne Motta - 01/13/2022 9:43 AM EDT Adina Escobar is still having pain under her bellybutton, her bowels did finally move, and the Celebrex makes her sicker that before. Please advise Susanne Motta documented in this encounterBarberton Citizens Hospital04-26-2022 Miscellaneous Notes* Telephone Encounter - Susanne Motta - 01/10/2022 11:01 AM EDT Americo from [facility] called, they received the PT order we faxed but they need it to have both PT and OT. Also, she had her first therapy on 12-22, could you put that start date on the order so her ins will cover it? Also has to have the [facility] on the order. The last one had a [facility] [place] in [place] [address] on it. Susanne Motta * Telephone Encounter - Susanne Motta - 01/10/2022 9:34 AM EDT Order faxed to [facility]. Susanne Motta * Telephone Encounter - Kentrell Dhaliwal II, MD - 01/10/2022 8:54 AM EDT Printed * Telephone Encounter - Denita Thomas MA - 01/09/2022 10:16 AM EDT Ella from [facility] called regarding patients insurance. They are denying the PT and OT for patient with out the 485 signed and an actual order. 485 has been faxed but we just need an order for patients PT and OT. Please print order and fax to [id number]. Denita Thomas documented in this encounterBarberton Citizens Hospital04-22-2022 Miscellaneous Notes* Telephone Encounter - Susanne Motta - 01/06/2022 2:43 PM EDT Spoke with Adina Escobar , gave her time and date of her US. Susanne Motta * Telephone Encounter - Dneita Thomas MA - 01/06/2022 2:12 PM EDT Left a voicemail advising patient to call back. Denita Thomas MA * Telephone Encounter - Kentrell Dhaliwal II, MD - 01/06/2022 1:57 PM EDT Labs were acceptable except for her liver function tests were somewhat elevated. I would suggest that we do an abdominal ultrasound documented in this encounterBarberton Citizens Hospital04-21-2022 NoteHNO ID: [id number] Author: Kentrell Dhaliwal II, MD Service: ? Author Type: Physician Type: Progress Notes Filed: 01/15/2022 9:51 PM Note Text: Transitional Care Management TCM Eligibility Documentation The following information was gathered during the initial Patient Outreach Encounter. No flowsheet data found. Summary Discharged from: [facility] Admit Date: 10/30/21-11/13/21 11/24/21-11/25/21, 12/26/21-12/21/21 Admitted for: [...] (78.9kg) BMI 32.89 kg/(m2). Physical Exam See above.[facility]04-21-2022 Miscellaneous Notes* Telephone Encounter - Josep Drew MA - 01/05/2022 2:39 PM EDT Prior auth for LUBIPROSTONE was sent to [facility] Josep Drew MA documented in this encounterBarberton Citizens Hospital04-12-2022 Miscellaneous Notes* Telephone Encounter - Mary Gongora MA - 12/27/2021 2:43 PM EDT Patient has been scheduled for upper GI series on 12/28/21 at 8:30am. She has been instructed NPO after 10pm and verbalizes understanding. Order has been faxed to registration with [employer]. Mary Gongora MA documented in this encounterBarberton Citizens Hospital04-12-2022 History of Present illness Narrative* Jaswant Moseley MD - 12/27/2021 2:42 PM EDT H & P Date: December 27, 2021 Chief Complaint: Patient presents with: Follow Up: ABD pain HPI: Adnia Escobar is a 71 year old female [...] Diarrhea Omnicef [Cefdinir] Diarrhea Prednisone GI Upset Cyedwed-Mhr-Tty Red* Diarrhea Sulfa (Sulfonamide * Other: See [...] SERIES Jaswant Moseley MD documented in this encounterBarberton Citizens Hospital04-07-2022 NoteHNO ID: [id number] Author: Maximo Benavides RN Service: ? Author Type: Registered Nurse Type: Progress Notes Filed: 12/22/2021 11:23 AM Note Text: TRANSITIONAL CARE MANAGEMENT (TCM) COMMUNITY MONITORING PROGRAM - JANESSA Provider Action/FYI: SUMMARY: Pt discharged from [facility] on 12/20/2021. Admitted for: SBO Reached patient [...] RN and I am calling from the [facility] on behalf of your PCP, Kentrell [...] like to speak with a social work staff nurse icu resource team to help give you support for any [...] I will send your request to a human resource advisor who will contact and assist you with [...] on the way if possible). Maximo Benavides [facility]04-07-2022 History of Present illness Narrative* Maximo Benavides RN - 12/22/2021 10:56 AM EDT TRANSITIONAL CARE MANAGEMENT (TCM) COMMUNITY MONITORING PROGRAM - JANESSA Provider Action/FYI: SUMMARY: Pt discharged from [facility] on 12/20/2021. Admitted for: SBO Reached patient [...] RN and I am calling from the [facility] on behalf of your [...] like to speak with a social work staff nurse icu resource team to help give you support for any [...] I will send your request to a human resource advisor who will contact and assist you with [...] JANESSA Provider Action/FYI: SUMMARY: Pt discharged from [facility] on 12/20/2021. Admitted for: SBO Contact made with patient: No - next outreach attempt will be on next day Message left on cell phone/telephone answering device requesting patient return my call ([phone]). Outreach ended Maximo Kasmar, RN documented in this encounterBarberton Citizens Hospital04-06-2022 Miscellaneous Notes* Telephone Encounter - Denita Thomas [...] Diarrhea Omnicef [Cefdinir] Diarrhea Prednisone GI Upset Kttfwge-Gqw-Esl Red* Diarrhea Sulfa (Sulfonamide * Other: See Comments Leg pain (home) [phone] (cell) Last Office Visit Date: 08/30/2021 Last [facility] Health Visit: Visit date not found Future Appointment: 12/30/2021 The patients preferred pharmacy has been captured for this encounter? yes Request is for script(s) to be escript to pharmacy. Denita Thomas MA documented in this encounterBarberton Citizens Hospital04-06-2022 NoteHNO ID: [id number] Author: Maximo Benavides RN Service: ? Author Type: Registered Nurse Type: Progress Notes Filed: 12/22/2021 11:23 AM Note Text: TRANSITIONAL CARE MANAGEMENT (TCM) COMMUNITY MONITORING PROGRAM - JANESSA Provider Action/FYI: SUMMARY: Pt discharged from [facility] on 12/20/2021. Admitted for: SBO Contact made with patient: No - next outreach attempt will be on next day Message left on cell phone/telephone answering device requesting patient return my call ([phone]). Outreach ended Maximo Benavides, [facility]04-06-2022 NotePatient Outreach (AGACM) ADINA ESCOBAR I ([id number]) 1950 F Date Time Provider Department 12/21/21 MAXIMO BENAVIDES During your visit today, we recorded the following information about you: Maximo Benavides RN 12/22/2021 11:23 AM Signed TRANSITIONAL CARE MANAGEMENT (TCM) COMMUNITY MONITORING PROGRAM - [place] Provider Action/FYI: SUMMARY: Pt discharged from [facility] on 12/20/2021. Admitted for: SBO Contact made with patient: No - next outreach attempt will be on next Message left on cell phone/telephone answering device requesting patient return my call ([phone]). Outreach ended DAVID Quick RN 12/22/2021 11:23 AM Signed TRANSITIONAL CARE MANAGEMENT (TCM) COMMUNITY MONITORING PROGRAM - [place] Provider Action/FYI: SUMMARY: Pt discharged from [facility] on 12/20/2021. Admitted for: SBO Reached patient on home/cell phone. We discussed the following: General: To ED on 01/19 for vasovagal response SBO: Hasn't had a BM x 3 days. Has a call into Dr. Moseley. A little abdominal pain. Able to tolerate fluids, protein shakes, scrambled eggs, and applesauce Surgery follow-up: Seeing Dr. Moseley 12/26/2021 Home Care: [facility]. PT/OT. Planning on visiting patient 12/26/2021 [...] RN and I am calling from the [facility] on behalf of your PCP, Kentrell [...] like to speak with a social work staff nurse icu resource team to help give you support for any [...] I will send your request to a human resource advisor who will contact and assist you with [...] telephone or virtual v (more content not included)...[facility]04-05-2022 History of Present illness Narrative* Jaswant Moseley [...] Diarrhea Omnicef [Cefdinir] Diarrhea Prednisone GI Upset Fjbkdrv-Itj-Vui Red* Diarrhea Sulfa (Sulfonamide * Other: See [...] understanding. Jaswant Moseley MD documented in this encounter[facility]22 NoteHNO ID: [id number] Author: Maximo Benavides RN Service: ? Author [...] remain at facility x 7 more days. 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 12/16/2021: Spoke to Marine. Ptient to remain at facility x 7 more days. 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: Will follow up 12/23/2021 Signature Maximo Benavides RN December 15, 2021 Allergies As of Date: 12/15/2021 Noted Allergy Reaction LATEX 06/22/2020 10 - Anaphylaxis CODEINE 06/22/2020 6 - Diarrhea COMPAZINE (PROCHLORPERAZINE) 06/22/2020 17 - Myalgia LEVAQUIN (LEVOFLOXACIN) 06/22/2020 6 - Diarrhea OMNICEF (CEFDINIR) 06/22/2020 6 - Diarrhea PREDNISONE 08/30/2021 8 - GI Upset LKBLAIY-SBO-HMI REDUCTASE INHIBIT*06/22/2020 6 - Diarrhea SULFA (SULFONAMIDE [...] 08/30/2021 Encounter Status:Closed by MAXIMO BENAVIDES on 12/16/21[facility]03-31-2022 History of Present illness Narrative* Maximo Benavides RN - 12/15/2021 1:25 PM EDT TRANSITION CARE MANAGEMENT (TCM) FOLLOW-UP NOTE Provider Action/FYI Patient identified by name and date of : YES Spoke to Monika Dent Summary: 12/15/2021: Message left for Marine-requesting return call regarding discharge plan. 12/16/2021: Spoke to Marine. Ptient to remain at facility x 7 more days. 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 The long term facility does state that her family has been bringing her in regular food. I asked her about this and she does endorse nausea with this but the nausea ov erall has improved. Would also like her PICC [...] Diarrhea Omnicef [Cefdinir] Diarrhea Prednisone GI Upset Rqooilo-Ano-Ruh Red* Diarrhea Sulfa (Sulfonamide * Other: See [...] 12/15/21 TIME: 12:31 PM documented in this encounterBarber[facility]03-21-2022 Miscellaneous Notes* Telephone Encounter - Pamela Gamino - 12/05/2021 5:16 PM EDT Noted, thank you. This was probably done by [facility] since it is [employer]. * Telephone Encounter - María Kruse MA - 12/05/2021 4:54 PM EDT Spoke with Marine from [facility], CT abdomen/pelvis w ivcon approved. Authorization # [id number] María Kruse MA * Telephone Encounter - María Kruse MA - 12/05/2021 3:07 PM EDT Patient is scheduled for a CT abd/pelvis with ivcon 12/26/21 at 10:30am. Patient has [employer] insurance and needs an auth done. María Kruse MA documented in this encounterBarberton Citizens Hospital03-21-2022 NoteHNO ID: [id number] Author: Maximo Benavides RN Service: ? Author Type: Registered Nurse Type: Progress Notes Filed: 12/05/2021 12:13 PM Note Text: TRANSITION CARE MANAGEMENT (TCM) FOLLOW-UP NOTE Provider Action/FYI Patient identified by name and date of : YES Spoke to [place] Filipe Summary: Spoke to Marine at [facility]. Patient remains at facility. Anticipated discharge date 12/15/2021. 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. Patient remains at facility. Anticipated discharge date 12/15/2021. 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 Author Type: Registered Nurse Type: Progress Notes Filed: 11/25/2021 2:07 PM Note Text: TRANSITION CARE MANAGEMENT (TCM) DISCHARGE TO POST ACUTE FACILITY POST ACUTE TRANSFER SUMMARY: -Pt discharged from [facility] on 11/24/2021. -Post Acute Facility Admitted to [facility] -Admitted for:SBO Will follow at discharge. TORRES Quick, RN [phone] [facility]03-[facility]-2022 NotePatient Outreach ([facility]) ADINA ESCOBAR I ([id number]) 1950 F Date Time Provider Department 11/25/21 MAXIMO BENAVIDES During your visit today, we recorded the following information about you: Maximo Benavides RN 11/25/2021 2:07 PM Signed TRANSITION CARE MANAGEMENT (TCM) DISCHARGE TO POST ACUTE FACILITY POST ACUTE TRANSFER SUMMARY: -Pt discharged from [facility] on 11/24/2021. -Post Acute Facility Admitted to [facility] -Admitted for:SBO Will follow at discharge. TORRES Quick, RN [phone] Allergies As of Date: 11/25/2021 Noted Allergy Reaction DILAUDID (HYDROMORPHONE) 06/22/2020 12 - Shortness of Breath Comments: quit breathing LATEX 06/22/2020 10 - Anaphylaxis CODEINE 06/22/2020 6 - Diarrhea COMPAZINE (PROCHLORPERAZINE) 06/22/2020 17 - Myalgia LEVAQUIN (LEVOFLOXACIN) 06/22/2020 6 - Diarrhea OMNICEF (CEFDINIR) 06/22/2020 6 - Diarrhea PREDNISONE 08/30/2021 8 - GI Upset EESVVHH-YFV-QVR REDUCTASE INHIBIT*06/22/2020 6 - Diarrhea SULFA (SULFONAMIDE ANTIBIOTICS) 06/15/2020 14 - Other: See Comments Comments: Leg pain Date Reviewed: 08/30/2021 Reviewed by: Kentrell Dhaliwal II, MD - Fully Assessed Reason for Visit: Transition Of Care [4902] Cmt: SNF Update Prescriptions as of 11/25/2021 [...] 08/30/2021 Encounter Status:Closed by MAXIMO BENAVIDES on 11/25/21[facility]12-15-2021 NoteHNO ID: [id number] Author: Kentrell Dhaliwal II, MD Service: ? Author Type: Physician Type: Progress Notes Filed: 08/30/2021 10:33 PM Note Text: Kentrell Dhaliwal II, MD [address], [address] [place] [address] NOEMI Escobar is a 71 year old [...] [Cefdinir] Diarrhea - Prednisone GI Upset - Vzhvhfv-Lri-Jzp Red* Diarrhea - Sulfa (Sulfonamide * Other: [...] needed. - zolpidem (AMBIEN) (more content not included)...[facility] 05-24-2021 NoteHNO ID: [id number] Author: Kentrell Dhaliwal II, MD Service: ? Author Type: Physician Type: Progress Notes Filed: 05/24/2021 8:15 PM Note Text: Kentrell Dhaliwal II, MD [address], [address] [place] [id number] SUBJECTIVE Adina Escobar is a 70 year [...] [Levofloxa* Diarrhea - Omnicef [Cefdinir] Diarrhea - Bypfqye-Tso-Dui Red* Diarrhea - Sulfa (Sulfonamide * Other: [...] mg per tablet Take (more content not included)...[facility]10-06-2020 History of Past illness Narrative* Problem Noted Date Resolved Date Parkinson's disease 06/22/2020 04/17/2022 GERD without esophagitis 06/22/2020 022 documented as of this encounter (statuses as of 04/19/2022) [facility]10[facility] History of Past illness Narrative* Problem Noted Date Resolved Date Parkinson's disease 06/22/2020 04/17/2022 GERD without esophagitis 06/22/2020 022 documented as of this encounter (statuses as of 04/20/2022) [facility] History of Past illness Narrative* Problem Noted Date Resolved Date Parkinson's disease 06/22/2020 04/17/2022 GERD without esophagitis 06/22/2020 022 documented as of this encounter (statuses as of 04/20/2022) [facility] of Past illness Narrative* Problem Noted Date Resolved Date Parkinson's disease 06/22/2020 04/17/2022 GERD without esophagitis 06/22/2020 022 documented as of this encounter (statuses as of 04/21/2022) [facility] of Past illness Narrative* Problem Noted Date Resolved Date Parkinson's disease 06/22/2020 04/17/2022 GERD without esophagitis 06/22/2020 022 documented as of this encounter (statuses as of 04/21/2022) [facility] of [facility] illness Narrative* Problem Noted Date Resolved Date Parkinson's disease 06/22/2020 04/17/2022 GERD without esophagitis 06/22/2020 022 documented as of this encounter (statuses as of 04/24/2022) [facility] illness Narrative* Problem Noted Date Resolved Date Parkinson's disease 06/22/2020 04/17/2022 GERD without esophagitis 06/22/2020 022 documented as of this encounter (statuses as of 05/04/2022) [facility] of [facility] illness Narrative* Problem Noted Date Resolved Date Parkinson's disease 06/22/2020 04/17/2022 GERD without esophagitis 06/22/2020 022 documented as of this encounter (statuses as of 05/04/2022) [facility] illness Narrative* Problem Noted Date Resolved Date Parkinson's disease 06/22/2020 04/17/2022 GERD without esophagitis 06/22/2020 022 documented as of this encounter (statuses as of 05/04/2022) [facility] illness Narrative* Problem Noted Date Resolved Date Parkinson's disease 06/22/2020 04/17/2022 GERD without esophagitis 06/22/2020 022 documented as of this encounter (statuses as of 05/04/2022) [facility] Narrative* Problem Noted Date Resolved Date Parkinson's disease 06/22/2020 04/17/2022 GERD without esophagitis 06/22/2020 022 documented as of this encounter (statuses as of 05/05/2022) [facility] Narrative* Problem Noted Date Resolved Date Parkinson's disease 06/22/2020 04/17/2022 GERD without esophagitis 06/22/2020 022 documented as of this encounter (statuses as of 05/05/2022) [facility] Narrative* Problem Noted Date Resolved Date Parkinson's disease 06/22/2020 04/17/2022 GERD without esophagitis 06/22/2020 022 documented as of this encounter (statuses as of 05/15/2022) [facility] Narrative* Problem Noted Date Resolved Date Parkinson's disease 06/22/2020 04/17/2022 GERD without esophagitis 06/22/2020 022 documented as of this encounter (statuses as of 05/19/2022) [facility] N[facility]ative* Problem Noted Date Resolved Date Parkinson's disease 06/22/2020 04/17/2022 GERD without esophagitis 06/22/2020 022 documented as of this encounter (statuses as of 05/19/2022) [facility]* Problem Noted Date Resolved Date Parkinson's disease 06/22/2020 04/17/2022 GERD without esophagitis 06/22/2020 022 documented as of this encounter (statuses as of 06/05/2022) [facility]* Problem Noted Date Resolved Date Parkinson's disease 06/22/2020 04/17/2022 GERD without esophagitis 06/22/2020 022 documented as of this encounter (statuses as of 06/06/2022) [facility]* Problem Noted Date Resolved Date Parkinson's disease 06/22/2020 04/17/2022 GERD without esophagitis 06/22/2020 022 documented as of this encounter (statuses as of 06/06/2022) [facility] N[facility]ative* Problem Noted Date Resolved Date Parkinson's disease 06/22/2020 04/17/2022 GERD without esophagitis 06/22/2020 022 documented as of this encounter (statuses as of 06/20/2022) [facility] Narrative* Problem Noted Date Resolved Date Parkinson's disease 06/22/2020 04/17/2022 GERD without esophagitis 06/22/2020 022 documented as of this encounter (statuses as of 07/04/2022) [facility]* Problem Noted Date Resolved Date Parkinson's disease 06/22/2020 04/17/2022 GERD without esophagitis 06/22/2020 022 documented as of this encounter (statuses as of 07/07/2022) [facility]* Problem Noted Date Resolved Date Parkinson's disease 06/22/2020 04/17/2022 GERD without esophagitis 06/22/2020 022 documented as of this encounter (statuses as of 07/08/2022) [facility] N[facility]ative* Problem Noted Date Resolved Date Parkinson's disease 06/22/2020 04/17/2022 GERD without esophagitis 06/22/2020 022 documented as of this encounter (statuses as of 07/13/2022) [facility]* Problem Noted Date Resolved Date Parkinson's disease 06/22/2020 04/17/2022 GERD without esophagitis 06/22/2020 022 documented as of this encounter (statuses as of 07/17/2022) [facility]* Problem Noted Date Resolved Date Parkinson's disease 06/22/2020 04/17/2022 GERD without esophagitis 06/22/2020 022 documented as of this encounter (statuses as of 07/18/2022) [facility]* Problem Noted Date Resolved Date Parkinson's disease 06/22/2020 04/17/2022 GERD without esophagitis 06/22/2020 022 documented as of this encounter (statuses as of 07/18/2022) [facility]ative* Problem Noted Date Resolved Date Parkinson's disease 06/22/2020 04/17/2022 GERD without esophagitis 06/22/2020 022 documented as of this encounter (statuses as of 07/19/2022) [facility]ative* Problem Noted Date Resolved Date Parkinson's disease 06/22/2020 04/17/2022 GERD without esophagitis 06/22/2020 022 documented as of this encounter (statuses as of 07/21/2022) [facility]* Problem Noted Date Resolved Date Parkinson's disease 06/22/2020 04/17/2022 GERD without esophagitis 06/22/2020 022 documented as of this encounter (statuses as of 07/24/2022) [facility]* Problem Noted Date Resolved Date Parkinson's disease 06/22/2020 04/17/2022 GERD without esophagitis 06/22/2020 022 documented as of this encounter (statuses as of 08/16/2022) [facility]* Problem Noted Date Resolved Date Parkinson's disease 06/22/2020 04/17/2022 GERD without esophagitis 06/22/2020 022 documented as of this encounter (statuses as of 08/23/2022) [facility]* Problem Noted Date Resolved Date Parkinson's disease 06/22/2020 04/17/2022 GERD without esophagitis 06/22/2020 022 documented as of this encounter (statuses as of 08/24/2022) [facility]* Problem Noted Date Resolved Date Parkinson's disease 06/22/2020 04/17/2022 GERD without esophagitis 06/22/2020 022 documented as of this encounter (statuses as of 09/19/2022) [facility]* Problem Noted Date Resolved Date Parkinson's disease 06/22/2020 04/17/2022 GERD without esophagitis 06/22/2020 022 documented as of this encounter (statuses as of 10/15/2022) [facility]* Problem Noted Date Resolved Date Parkinson's disease 06/22/2020 04/17/2022 GERD without esophagitis 06/22/2020 022 documented as of this encounter (statuses as of 10/31/2022) [facility]* Problem Noted Date Resolved Date Parkinson's disease 06/22/2020 04/17/2022 GERD without esophagitis 06/22/2020 022 documented as of this encounter (statuses as of 11/14/2022) [facility]* Problem Noted Date Resolved Date Parkinson's disease 06/22/2020 04/17/2022 GERD without esophagitis 06/22/2020 022 documented as of this encounter (statuses as of 11/24/2022) [facility]* Problem Noted Date Resolved Date Parkinson's disease 06/22/2020 04/17/2022 GERD without esophagitis 06/22/2020 022 documented as of this encounter (statuses as of 12/06/2022) [facility]* Problem Noted Date Resolved Date Parkinson's disease 06/22/2020 04/17/2022 GERD without esophagitis 06/22/2020 022 documented as of this encounter (statuses as of 12/11/2022) [facility]* Problem Noted Date Resolved Date Parkinson's disease 06/22/2020 04/17/2022 GERD without esophagitis 06/22/2020 022 documented as of this encounter (statuses as of 12/13/2022) [facility]* Problem Noted Date Resolved Date Parkinson's disease 06/22/2020 04/17/2022 GERD without esophagitis 06/22/2020 022 documented as of this encounter (statuses as of 01/09/2023) [facility]* Problem Noted Date Resolved Date Parkinson's disease 06/22/2020 04/17/2022 GERD without esophagitis 06/22/2020 022 documented as of this encounter (statuses as of 01/18/2023) [facility]ative* Problem Noted Date Resolved Date Parkinson's disease 06/22/2020 04/17/2022 GERD without esophagitis 06/22/2020 022 documented as of this encounter (statuses as of 01/30/2023) [facility]ative* Problem Noted Date Diagnosed Date Resolved Date Parkinson's disease 06/22/2020 04/17/20 22 GERD without esophagitis 06/22/202009/2021 documented as of this encounter (statuses as of 06/16/2023) [facility]ative* Problem Noted Date Diagnosed Date Resolved Date Parkinson's disease 06/22/2020 04/17/20 22 GERD without esophagitis 06/22/202009/2021 documented as of this encounter (statuses as of 06/16/2023) [facility] Ivon Oliver [facility] March 18, 2023 4:19pm Note Date/Time March 18, 2023 4:18p [facility] Medical Records Department [address] [place] [address] Instructions for Home/Discharge Instructions 03/18/23 1618 MR#: [id number] Acct: [id number] Name: ADINA ESCOBAR Rep #:[id number] : [...] Fragoso MD;Dr. Kentrell Dhaliwal MD ~ Signed [facility] Work Phone: Discharge summary Author Aly Fragoso [facility] December 11, 2023 2:04pm Note Date/Time December 11, 2023 2:0 1pm [facility] Medical Records Department [address] [place] [id number] Instructions for Home/Discharge Instructions 12/11/23 1358 MR#: [id number] Acct: [id number] Name: ADINA ESCOBAR Rep #:[id number] : [...] MD; Dr. Kentrell Dhaliwal MD ~ Signed [facility] Work Phone: Evaluation note* Diagnosis Peritoneal abscess (HCC)- Primary Peritoneal abscess Adverse effect of treatment, initial encounter documented in this encounter [facility] note* Diagnosis History of small bowel obstruction- Primary Personal history of other diseases of digestive system On total parenteral nutrition (TPN) Other specified conditions influencing health status documented in this encounter [facility] note* Diagnosis History of small bowel obstruction- Primary Personal history of other diseases of digestive system On total parenteral nutrition (TPN) Other specified conditions influencing health status Post-operative state Other postprocedural status documented in this encounter [facility] note* Diagnosis History of small bowel obstruction- Primary Personal history of other diseases of digestive system Abdominal pain, unspecified abdominal location Post-operative state Other postprocedural status [facility]* Diagnosis Generalized abdominal pain- Primary Abdominal pain, generalized Elevated liver function tests Other abnormal blood chemistry documented in this encounter [facility] note* Diagnosis Generalized weakness- Primary Other malaise and fatigue SBO (small bowel obstruction) (HCC) Unspecified intestinal obstruction Fatigue, unspecified type Type 2 diabetes mellitus without complication, without long-term current use of insulin (HCC) Parkinson's disease (HCC) Paralysis agitans documented in this encounter [facility] note* Diagnosis History of small bowel obstruction- Primary Personal history of other diseases of digestive system Abdominal pain, unspecified abdominal location documented in this encounter [facility] note* Diagnosis Anxiety and depression Dysthymic disorder documented [facility] this [facility]* Diagnosis Chronic insomnia Insomnia, unspecified documented in this encounter [facility] note* Diagnosis Anxiety and depression Dysthymic disorder documented in this encounter [facility] note* Diagnosis Anxiety and depression- Primary Dysthymic disorder Chronic insomnia Insomnia, unspecified Gastroesophageal reflux disease, unspecified whether esophagitis present Type 2 diabetes mellitus without complication, without long-term current use of insulin (HCC) SBO (small bowel obstruction) (HCC) Unspecified intestinal obstruction documented in this encounter [facility] note* Diagnosis Anxiety and depression Dysthymic disorder documented [facility] this encounter [facility]* Diagnosis Chronic insomnia Insomnia, unspecified documented in this encounter [facility] note* Diagnosis Anxiety and depression- Primary Dysthymic disorder Irritable bowel syndrome with both constipation and diarrhea Gastroesophageal reflux disease, unspecified whether esophagitis present Type 2 diabetes mellitus without complication, without long-term current use of insulin (HCC) Elevated liver function tests Other abnormal blood chemistry Hypothyroidism, acquired Unspecified hypothyroidism Myalgias Chronic insomnia Insomnia, unspecified documented in this encounter [facility] note* Diagnosis Myalgias [facility] Diagnosis Chronic insomnia Insomnia, unspecified documented in this encounter [facility]* Diagnosis Anxiety and depression Dysthymic disorder documented in this encounter [facility] note* Diagnosis Syncope, unspecified syncope type- Primary Anxiety and depression Dysthymic disorder Irritable bowel syndrome with both constipation and diarrhea Gastroesophageal reflux disease, unspecified whether esophagitis present Hypothyroidism, acquired Unspecified hypothyroidism SBO (small bowel obstruction) (HCC) Unspecified intestinal obstruction Recurrent UTI (urinary tract infection) Urinary tract infection, site not specified documented in this encounter [facility] note* Diagnosis Chronic insomnia Insomnia, unspecified documented in this encounter [facility] note* Diagnosis Anxiety and depression Dysthymic disorder documented in this encounter [facility] note* Diagnosis LLQ abdominal pain- Primary Abdominal pain, left lower quadrant Nausea and vomiting, unspecified vomiting type Partial small bowel obstruction (HCC) Unspecified intestinal obstruction documented in this encounter [facility] note* Diagnosis Anxiety and depression Dysthymic disorder documented in this encounter [facility] note* Diagnosis Hypothyroidism, acquired- Primary Unspecified hypothyroidism Type 2 diabetes mellitus without complication, without long-term current use of insulin (HCC) Gastroesophageal reflux disease, unspecified whether esophagitis present Anxiety and depression Dysthymic disorder Elevated liver function tests Other abnormal blood chemistry Irritable bowel syndrome with both constipation and diarrhea documented in this encounter [facility] noteNo assessment information availableWTriHealth Work Phone: Evaluation note* Diagnosis Chronic insomnia Insomnia, unspecified documented in this encounter [facility] note* Diagnosis Chronic insomnia Insomnia, unspecified documented in this encounter [facility] note* Diagnosis Onset Date Resolution Status Partial small bowel obstruction acute [facility] Work Phone: Evaluation note* Diagnosis Onset Date Resolution Status Constipation acute Partial small bowel obstruction acute [facility] Work Phone: Evaluation note* Diagnosis Onset Date Resolution Status Constipation resolved Partial small bowel obstruction resolved [facility] Work Phone: Evaluation note* Diagnosis Anxiety and depression Dysthymic disorder documented in this encounter [facility] note* Diagnosis Anxiety and depression Dysthymic disorder documented in this encounter [facility] note* Diagnosis Small bowel obstruction (HCC)- Primary Unspecified intestinal obstruction Recurrent UTI (urinary tract infection) Urinary tract infection, site not specified Dermatitis Contact dermatitis and other eczema, due to unspecified cause Gastroesophageal reflux disease, unspecified whether esophagitis present Hypothyroidism, acquired Unspecified hypothyroidism Anxiety and depression Dysthymic disorder Generalized weakness Other malaise and fatigue documented in this encounter [facility] note* Diagnosis Chronic insomnia Insomnia, unspecified documented in this encounter [facility] note* Diagnosis Small bowel obstruction (HCC) Unspecified intestinal obstruction documented in this encounter [facility] note* Diagnosis Small bowel obstruction (HCC) Unspecified intestinal obstruction documented in this encounter [facility] note* Diagnosis Generalized abdominal pain- Primary Abdominal pain, generalized Small bowel obstruction (HCC) Unspecified intestinal obstruction documented in this encounter [facility] note* Diagnosis Anxiety and depression Dysthymic disorder documented in this encounter [facility] note* Diagnosis Generalized abdominal pain Abdominal pain, generalized documented in this encounter [facility] note* Diagnosis Anxiety and depression Dysthymic disorder Generalized abdominal pain Abdominal pain, generalized documented in this encounter [facility] note* Diagnosis Generalized weakness Other malaise and fatigue SOB (shortness of breath) Shortness of breath CHAVARRIA (dyspnea on exertion) Other dyspnea and respiratory abnormality Fatigue, unspecified type documented in this encounter [facility] note* Diagnosis Generalized weakness- Primary Other malaise and fatigue SOB (shortness of breath) Shortness of breath CHAVARRIA (dyspnea on exertion) Other dyspnea and respiratory abnormality Fatigue, unspecified type Chronic insomnia Insomnia, unspecified Anxiety and depression Dysthymic disorder Generalized abdominal pain Abdominal pain, generalized documented in this encounter [facility] note* Diagnosis Anxiety and depression Dysthymic disorder documented in this encounter [facility] note* Diagnosis Gastroesophageal reflux disease, unspecified whether esophagitis present- Primary Nausea Nausea alone Diarrhea, unspecified type documented in this encounter [facility] note* Diagnosis Onset Date Resolution Status SBO (small bowel obstruction) acute [facility] Work Phone: Evaluation note* Diagnosis Onset Date Resolution Status Abdominal pain acute SBO (small bowel obstruction) [facility] Work Phone: Evaluation note* Diagnosis Gastroesophageal reflux disease, unspecified whether esophagitis present- Primary Nausea Nausea alone Anxiety and depression Dysthymic disorder Diarrhea, unspecified type Generalized weakness Other malaise and fatigue Hypothyroidism, acquired Unspecified hypothyroidism Iron deficiency anemia, unspecified iron deficiency anemia type documented in this encounter [facility] note* Diagnosis Chronic insomnia Insomnia, unspecified documented in this encounter [facility] note* Diagnosis Anxiety and depression Dysthymic disorder documented in this encounter [facility] note* Diagnosis Anxiety and depression Dysthymic disorder documented in this encounter [facility] note* Diagnosis Nausea Nausea alone documented in this encounter [facility] note* Diagnosis Chronic insomnia Insomnia, unspecified Anxiety and depression Dysthymic disorder documented in this encounter [facility] note* Diagnosis Chronic insomnia Insomnia, unspecified documented in this encounter [facility] note* Diagnosis Nausea Nausea alone documented in this encounter [facility] note* Diagnosis Anxiety and depression Dysthymic disorder Chronic insomnia Insomnia, unspecified documented in this encounter [facility] note* Diagnosis LLQ abdominal pain Abdominal pain, left lower quadrant Partial small bowel obstruction (HCC) Unspecified intestinal obstruction documented in this encounter [facility] note* Diagnosis Gastroesophageal reflux disease, unspecified whether esophagitis present- Primary Anxiety and depression Dysthymic disorder Chronic insomnia Insomnia, unspecified Hypothyroidism, acquired Unspecified hypothyroidism Iron deficiency anemia, unspecified iron deficiency anemia type Nausea Nausea alone Vitamin D deficiency Unspecified vitamin D deficiency documented in this encounter [facility] note* Diagnosis Anxiety and depression Dysthymic disorder documented in this encounter [facility] note* Diagnosis Chronic insomnia Insomnia, unspecified documented in this encounter [facility] note* Diagnosis Acute otitis media, left- Primary Unspecified otitis media Acute otitis externa of left ear, unspecified type documented in this encounter [facility] note* Diagnosis Anxiety and depression Dysthymic disorder documented in this encounter [facility] note* Diagnosis Anxiety and depression Dysthymic disorder documented in this encounter [facility] note* Diagnosis Anxiety and depression Dysthymic disorder documented in this encounter [facility] note* Diagnosis Chronic deep vein thrombosis (DVT) of proximal vein of lower extremity, unspecified laterality (HCC) documented in this encounter [facility] note* Diagnosis Gastroesophageal reflux disease, unspecified whether esophagitis present- Primary Generalized abdominal pain Abdominal pain, generalized Anxiety and depression Dysthymic disorder Hypothyroidism, acquired Unspecified hypothyroidism Elevated blood pressure reading without diagnosis of hypertension documented in this encounter [facility] note* Diagnosis Generalized abdominal pain- Primary Abdominal pain, generalized Gastroesophageal reflux disease, unspecified whether esophagitis present SOB (shortness of breath) Shortness of breath Anxiety and depression Dysthymic disorder Elevated blood pressure reading without diagnosis of hypertension [facility]* Diagnosis Chronic insomnia Insomnia, unspecified documented in this encounter [facility] note* Diagnosis Chronic insomnia Insomnia, unspecified documented in this encounter [facility]* Diagnosis Anxiety and depression Dysthymic disorder documented in this encounter [facility] note* Diagnosis Nausea Nausea alone documented in this encounter [facility] note* Diagnosis Anxiety and depression Dysthymic disorder documented in this encounter [facility] note* Diagnosis Anxiety and depression Dysthymic disorder Chronic insomnia Insomnia, unspecified documented in this encounter [facility]* Diagnosis Anxiety and depression Dysthymic disorder documented in this encounter [facility]* Diagnosis Gastroesophageal reflux disease, unspecified whether [...] severe protein-calorie malnutrition documented in this encounter [facility]* Diagnosis Anxiety and depression Dysthymic disorder documented in this encounter [facility]* Diagnosis Vertigo- Primary Dizziness and giddiness Anxiety and depression Dysthymic disorder CHAVARRIA (dyspnea on exertion) Other dyspnea and respiratory abnormality Palpitations Gastroesophageal reflux disease, unspecified whether esophagitis present Hypothyroidism, acquired Unspecified hypothyroidism Iron deficiency anemia, unspecified iron deficiency anemia type 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 Irritable bowel syndrome with both constipation and diarrhea documented in this encounter [facility] note* Diagnosis Anxiety and depression Dysthymic disorder Chronic insomnia Insomnia, unspecified documented in this encounter [facility] note* Diagnosis Onset Date Resolution Status Admit Date Abdominal pain acute April 12, 2025 8:41pm Intractable abdominal pain acute April 12, 2025 8:41pm Nausea & vomiting acute April 122024 8:41pm [facility] Work Phone: History and physical note Author Jessica Thomas [facility] March 16, 2023 6:39am Note Date/Time March 16, 2023 6:31 am [facility] Medical Records Department [address] [place] [address] H&P Exam - Hospitalist 03/16/2331 MR#: [id number] Acct: [id number] Name: ADINA ESCOBAR Rep #:[id number] : 1950 72 From: Jessica Thomas MD PCP: Dr. Kentrell Dhaliwal MD Status:ADM IN Location: [facility] [id number] HPI - General General Date of Admission: 03/16/23 Date of Service: 03/16/23 Chief Complaint: Abdominal pain, N/V. HPI Narrative The patient is a 72 y/o F w/ PMHx: Hypothyroidism, Anxiety and Depression, Hx VTE, HLD, GERD, Hx SBO s/p 7 prior abdominal surgeries including bowel resectionwho presents to the [facility]23 with history of [...] placed and small bowel follow-through be initiated. [facility] Medical History (Updated 03/16/23 @ [...] [From Levaquin] AdvReac Vomiting Verified 12/11/22 22:27 Zbgyuon-BXR-PrU Reductase AdvReac NEEDS Verified 12/11/22 22:27 Inhibitor [...] % (Auto) 48.5, Lymph % (Auto) 40.6, Gibson % (Auto) 8.3, Eos % (Auto) 1.1, [...] Clarity Clear, Urine pH 6.0, Ur Specific Voca 1.010, Urine Protein Negative, Urine Glucose (UA) [...] surgeries including bowel resectionwho presents to the [facility] ED on 03/16/23 with history of [...] 75 minutes. Charges/Coding Visit Charges Inpatient E&M: 62121 Init Hosp L3 03/16/23 0631 <Electronically signed [...] MD; Dr. Kentrell Dhaliwal MD ~* Signed [facility] Work Phone: History and physical note Author Mike Queen [facility] Note Date/Time April 12, 2025 7:56 pm [facility] Medical Records Department [address] [place] [address] H&P Exam - Hospitalist 04/12/25 1949 MR#: [id number] Acct: [id number] Name: ADINA ESCOBAR Rep #:[id number] : 1950 74 From: Mike Queen DO PCP: Dr. Kentrell Dhaliwal MD Status:REG ER Location: ED HPI - General General Date of Service: 04/12/25 Chief Complaint: Abdominal pain HPI Narrative ADINA ESCOBAR, is a 74 F who presents with abdominal pain that began . Thisis a 74-year-old female that has had a [...] so she presented to the emergency room forevaluation. She had a CAT scan that showed mild segmental dilation small bowel. No significant obstruction proximally. Patient received hydromorphone and fentanyl and still is having abdominal pain but is feeling better. Given the severity of her symptoms, the hospitalist service was contacted for admission. [facility] Medical History Irritable bowel Scarlet fever Depression Hyperthyroidism DVT (deep venous thrombosis) CKD (chronic kidney disease), stage III Chronic anemia History of venous thromboembolism History of small bowel obstruction GERD (gastroesophageal reflux disease) HLD (hyperlipidemia) Anxiety and depression Hypothyroidism Home Medications ?Medication ?Instructions ?Recorded ?Last Taken ?Type alprazolam 1 mg tablet (Xanax) 1 mg PO BID anxiety Unknown History bupropion HCl 150 mg 24 hr tablet, 150 mg PO BID [facility] 12/11/22 Unknown History extended release esomeprazole magnesium 20 mg 20 mg PO DAILY reflux Unknown History capsule,delayed release ezetimibe 10 mg tablet 10 mg PO DAILY cholesterol 0 12/11/22 Unknown History levothyroxine 50 mcg tablet 50 mcg PO DAILY thyroid Unknown History zolpidem 10 mg tablet (Ambien) 10 mg PO QHS sleep 11/16 04/08 Unknown History docusate sodium 100 mg capsule 100 mg PO BID stool sof tner 03/31/23 Unknown History budesonide 160 mcg-glycopyr 9 2 inh inhalation BID natty athing 12/06/23 Unknown History mcg-formot 4.8 mcg/actuation HFA inhaler (Breztri Aerosphere) buspirone 15 mg tablet 7.5 mg PO BID mental health 12/06/23 Unknown History polyethylene glycol 3350 17 17 g PO BID bowels 4 Unknown History gram/dose oral powder (Miralax) ropinirole 0.5 mg tablet 0.5 mg PO BID restless legs 12/06/23 Unknown History warfarin 5 mg tablet 5 mg PO DAILY blood thinner 12/06/23 Unknown History ondansetron HCl 4 mg tablet 4 mg PO Q6H PRN Nausea #10 tabs 12/13/23 Unknown Rx furosemide 20 mg tablet 20 mg PO DAILY 09/14/24 Unkn own History tramadol 50 mg tablet 50 mg PO Q6H PRN PRN pain Unknown History Allergy/AdvReac Type Severity Reaction Status Date / Time cefdinir (From Omnicef) Allergy Hives Verified 09/13/24 20:52 codeine Allergy NEEDS Verified 09/13/24 20:52 FOLLOW-UP latex Allergy Anaphylaxis Verified 09/13/24 20:52 prochlorperazine (From Allergy NEEDS Verified 09/13/24 20:52 Compazine) FOLLOW-UP shellfish derived Allergy Anaphylaxis Verified 09/13/24 20:52 levofloxacin (From Levaquin) AdvReac Vomiting Verified 09/13/24 20:52 Cswfriw-VQB-SdY Reductase AdvReac NEEDS Verified 09/13/24 20:52 Inhibitor [...] C Temperature Source Oral Oral Oral Pulse Rate 70 70 52 L Respiratory Rate 18 13 18 Blood Pressure 169/101 H 101/87 H 134/62 H Blood Pressure Mean 123 91 86 Pulse Ox 98 100 100 Oxygen Delivery Method Room Air Room Air Room Air 04/12/25 19:00 Temperature 36.9 C Temperature Source Oral Pulse Rate 63 Respiratory Rate 14 Blood Pressure 164/40 H Blood Pressure Mean 81 Pulse Ox 94 Oxygen Delivery Method Room Air Weight Weight: 69.4 kg Body Mass Index (BMI) 28.9 Physical Exam Const alert and no apparent distress HEENT normocephalic, head/scalp atraumatic, hearing grossly normal bilaterally and moist oral mucous membranes Resp normal respiratory effort, no retractions, no use of accessory muscles and clearto auscultation bilaterally Cardio regular rate, regular rhythm, S1 normal heart sound and S2 normal heart sound GI GI Narrative: Nondistended. Umbilical tenderness. Hypoactive bowel sounds. Extremity Extremity Narrative: Trace lower extremity edema Skin Skin Narrative: No rashes or lesions Neuro Sensorium / Orientation: awake and alert Psych Mood & Affect: anxious Results Lab / Micro Data Attestation: I reviewed the patient's lab results. 04/12/25 17:20 04/12/25 17:20 Labs: Laboratory Results - last 24 hr 04/12/25 17:20: WBC 8.7, RBC 3.79 L, Hgb 11.4 L, Hct 33.5 L, MCV 88.4, MCH 30.1,MCHC 34.0, RDW Std Deviation 45.3 H, RDW Coeff of Neno 14.0, Plt Count 287, MPV 9.7, Immature Gran % (Auto) 0.600, Neut % (Auto) 57.6, Lymph % (Auto) 33.1, Gibson% (Auto) 7.2, Eos % (Auto) 0.9, Baso % (Auto) 0.6, Absolute Neuts (auto) 5.0, Absolute Lymphs (auto) 2.88, Nucleated RBC % 0, Sodium 139, Potassium 4.1, Chloride 105, Carbon Dioxide 20.7 L, Anion Gap 13, BUN 15, Creatinine 1.30 H, Estim Creat Clear Calc 34.34 L, Est GFR (MDRD) Non-Af 43 L, BUN/Creatinine Ratio 11.2, Glucose 89, Calcium 9.4, Total Bilirubin 0.76, AST 37 H, ALT 23, Alkaline Phosphatase 78, Total Protein 6.9, Albumin 4.1, Globulin 2.8, Albumin/Globulin Ratio 1.4, Lipase 31 Imaging Radiology Impression Abdomen/Pelvis CT 04/12/25 17:18 IMPRESSION: Similar appearance of small bowel centrally when compared to the prior study with mild segmental dilatation. No significant obstruction proximally. Reading [facility] Assessment & Plan Assessment/Plan (1) Abdominal pain: QUALIFIERS: Abdominal location: generalized Qualified Code(s): R10.84 - Generalized abdominal pain PLAN: Concern for ileus versus small bowel obstruction. Patient not having issues regards to nausea vomiting so I think we can avoid NG tube at this time. Supportive management. Given concern for ileus will add scheduled metoclopramide to see if that would help. Pain control as well. Clear diet. Will give her additional IV fluids patient is not eating or drinking much since this has initiated. PLAN: Plan Weakness: Patient fell a week and a half ago. PT OT evaluate and treat. Chronic medical conditions * History of DVT: Continue on warfarin. Check INR. If INR subtherapeutic, initiate enoxaparin weight-based. * Hypothyroidism: Continue with levothyroxine VTE prophylaxis: Anticoagulated. Disposition: To be determined. Patient was abdominal pain, decreased appetite and oral intake. I do not anticipate a rapid recovery given that her symptoms have been going on for 7 days thus far. Charges/Coding Visit Charges Inpatient E&M: 68822 Init Hosp L2 04/12/251955 <Electronically signed by Mike Queen DO> Cosigner Signature (if applicable): CC: Dr. Mike Queen DO; Dr. Kentrell Dhaliwal MD~ Signed [facility] Work Phone: Hospital Discharge instructions Additional Instructions Increase Metamucil to twice a day for the next several days.[facility] Work Phone: Reason for referral (narrative)* Diagnostic Procedure Only (Routine) - Pending Review Specialty Diagnoses / Procedures Referred By Contac t Referred To Contact XR IMAGING Diagnoses History of small bowel obstruction Abdominal pain, unspecified abdominal location Procedures XR SMALL BOWEL SERIES RADIOLOGIC EXAM SMALL INT SINGLE CONTRAST STUDY Jaswant Moseley MD [address] [place] [address] [address] Xr Imaging Referral ID Status Reason Start Date Expiration Date Visits Requested Visits Authorized [id number] Pending Review Auto-Generat ed Referral 12/27/2021 01/26/2023 1 1 [facility] for referral (narrative)* Diagnostic Procedure Only (Routine) - Pending Review Specialty Diagnoses / Procedures Referred By Contac t Referred To Contact US IMAGING Diagnoses Generalized abdominal pain Elevated liver function tests Procedures US ABDOMEN COMPLETE US ABDOMINAL REAL TIME W/IMAGE DOCUMENTATION Kentrell Dhaliwal II, MD [address] [place] [address] [place] [address] Us Imaging Referral ID Status Reason Start Date Expiration Date Visits Requested Visits Authorized [id number] Pending Review Auto-Generat ed Referral 01/06/2022 02/05/2023 1 1 [facility] for referral (narrative)* Diagnostic Procedure Only (Routine) - Closed Specialty Diagnoses / Procedures Referred By Contac t Referred To Contact XR IMAGING Diagnoses LLQ abdominal pain Partial small bowel obstruction (HCC) Procedures XR ABDOMEN 2V ROUTINE SUPINE W UPRIGHT/DECUB/CTL RADIOLOGIC EXAM [place]BDOMEN [address] [place] [address] [place] [address] Xr Imaging Referral ID Status Reason Start Date Expiration Date V isits Requested Visits Authorized [id number] Closed Auto-Generate d Referral 07/21/2022 08/20/2023 1 1 [facility] for referral (narrative)* Diagnostic Procedure Only (Routine) - Closed Specialty Diagnoses / Procedures Referred By Contac t Referred To Contact XR IMAGING Diagnoses LLQ abdominal pain Partial small bowel obstruction (HCC) Procedures XR ABDOMEN 2V ROUTINE SUPINE W UPRIGHT/DECUB/CTL RADIOLOGIC EXAM [place]BDOMEN [address] [place] [address] [place] [address] [place] [address] Referral ID Status Reason Start Date Expiration Date V isits Requested Visits Authorized [id number] Closed Auto-Generate d Referral 07/21/2022 08/20/2023 1 1 [facility] for referral (narrative)No reason for referral information availableWTriHealth Work Phone: Reason for Referral Specialty Diagnoses / Procedures Referred By Contac t Referred To Contact CT IMAGING Diagnoses Adverse effect of treatment, initial encounter Peritoneal abscess (HCC) Procedures CT ABD/PEL W IVCON CT ABD & PELVIS W/CONTRAST Jaswant Moseley MD [address] [facility] [place] [address] Ct Imaging Referral ID Status Reason Start Date Expiration Date Visits Requested Visits Authorized [id number] Pending Review Auto-Generat ed Referral 12/05/2021 01/04/2023 [...] 45 MINS Kentrell Dhaliwal II, MD [address] [facility] [place] [address] [facility] [place] [address] [facility] [place] [address] Referral ID Status Reason Start Date Expiration Date Visits Requested Visits Authorized [id number] Pending Review Auto-Generat ed Referral 01/10/2022 01/09/2023 1 1 Specialty Diagnoses / Procedures Referred By Diana gutierrez Referred To Contact Diagnoses Kentrell Romero II, MD [address] [place] [address] Referral ID Status Reason Start Date Expiration Date V isits Requested Visits Authorized [id number] Pending Review 1 1 Referral ID Status Reason Start Date Expiration Date V isits Requested Visits Authorized [id number] Pending Review 1 1 Summary Purpose Family [...] No December 11, 2022 10:18pm Power of Machine Pecan Picker No December 11 10:18pm Advance Directive Response Recorded Date/ Time Name of Medical Power of Machine Pecan Picker FARHAD TEVIN March 16, 2023 3:35am Living Will Yes March 16, 2023 3:35am Power of Machine Pecan Picker Yes March 16 3:35am Advance Directive Response Recorded Date/ Time Name of Medical Power of Machine Pecan Picker FARHAD TEVIN March 16, 2023 7:37am Living Will Yes March 16, 2023 7:37am Power of Machine Pecan Picker Yes March 16 7:37am Advance Directive Response Recorded Date/ Time Name of Medical Power of Machine Pecan Picker FARHAD TEVIN March 16, 2023 7:37am Living Will No March 31, 2023 11:16pm Power of Machine Pecan Picker No March 31 11:16pm Advance Directive Response Recorded Date/ Time Living Will No December 06, 2023 5:08pm Power of Machine Pecan Picker No December 05 5:08pm Advance Directive Response Recorded Date/ Time Name of Medical Power of Machine Pecan Picker brook (daught er) December 07, 2023 1:09am Living Will Yes December 07, 2023 1:09am Power of Machine Pecan Picker Yes December 06 1:09am Advance Directive Response Recorded Date/ Time Name of Medical Power of Machine Pecan Picker brook (danabeel er) December 07, 2023 1:09am Name of Medical Power of Machine Pecan Picker ROSARIO BRAVO December 13, 2023 10:24am Living Will Yes December 13, 2023 10:24am Power of Machine Pecan Picker Yes December 12 10:24am Advance Directive Response Recorded Date/ Time Do you have a Healthcare Power of Machine Pecan Picker? Yes April 12, 2025 5:14pm Health Concerns Infection Onset Date Last Indicated [...] pain SBO (small bowel obstruction) Chief Complaint Admit Date abd pain April 12, 2025 7:50 pm abd pain April 12, 2025 8:41 pm Reason for Visit Admit Date Abdominal pain April 12, 2025 8:41 pm Intractable abdominal pain April 12 8:41pm Nausea & vomiting April 12, 2025 8:41 pm Additional Source Comments Source Comments (unrecognize d section and content) In the event this informatio n is protected by the Federal Confidentiality of Alcohol and Drug Abuse Patient Records regulations: The Federal rules restrict any use of the information to criminally investigate or prosecute any alcohol or drug abuse patient.[facility] the event this information is protected by the Federal Confidentiality of Alcohol and Drug Abuse Patient Records regulations: The Federal rules restrict any use of the information to criminally investigate or prosecute any alcohol or drug abuse patient.[facility]In the event this information is protected by the Federal Confidentiality of Alcohol and Drug Abuse Patient Records regulations: The Federal rules restrict any use of the information to criminally investigate or prosecute any alcohol or drug abuse patient.[facility]In the event this information is protected by the Federal Confidentiality of Alcohol and Drug Abuse Patient Records regulations: The Federal rules restrict any use of the information to criminally investigate or prosecute any alcohol or drug abuse patient.[facility]In the event this information is protected by the Federal Confidentiality of Alcohol and Drug Abuse Patient Records regulations: The Federal rules restrict any use of the information to criminally investigate or prosecute any alcohol or drug abuse patient.[facility]In the event this information is protected by the Federal Confidentiality of Alcohol and Drug Abuse Patient Records regulations: The Federal rules restrict any use of the information to criminally investigate or prosecute any alcohol or drug abuse patient.[facility] HospitalIn the event this information is protected by the Federal Confidentiality of Alcohol and Drug Abuse Patient Records regulations: The Federal rules restrict any use of the information to criminally investigate or prosecute any alcohol or drug abuse patient.[facility]In the event this information is protected by the Federal Confidentiality of Alcohol and Drug Abuse Patient Records regulations: The Federal rules restrict any use of the information to criminally investigate or prosecute any alcohol or drug abuse patient.[facility]In the event this information is protected by the Federal Confidentiality of Alcohol and Drug Abuse Patient Records regulations: The Federal rules restrict any use of the information to criminally investigate or prosecute any alcohol or drug abuse patient.[facility] HospitalIn the event this information is protected by the Federal Confidentiality of Alcohol and Drug Abuse Patient Records regulations: The Federal rules restrict any use of the information to criminally investigate or prosecute any alcohol or drug abuse patient.[facility] HospitalIn the event this information is protected by the Federal Confidentiality of Alcohol and Drug Abuse Patient Records regulations: The Federal rules restrict any use of the information to criminally investigate or prosecute any alcohol or drug abuse patient.[facility] HospitalIn the event this information is protected by the Federal Confidentiality of Alcohol and Drug Abuse Patient Records regulations: The Federal rules restrict any use of the information to criminally investigate or prosecute any alcohol or drug abuse patient.[facility] HospitalIn the event this information is protected by the Federal Confidentiality of Alcohol and Drug Abuse Patient Records regulations: The Federal rules restrict any use of the information to criminally investigate or prosecute any alcohol or drug abuse patient.[facility] HospitalIn the event this information is protected by the Federal Confidentiality of Alcohol and Drug Abuse Patient Records regulations: The Federal rules restrict any use of the information to criminally investigate or prosecute any alcohol or drug abuse patient.[facility] HospitalIn the event this information is protected by the Federal Confidentiality of Alcohol and Drug Abuse Patient Records regulations: The Federal rules restrict any use of the information to criminally investigate or prosecute any alcohol or drug abuse patient.[facility] HospitalIn the event this information is protected by the Federal Confidentiality of Alcohol and Drug Abuse Patient Records regulations: The Federal rules restrict any use of the information to criminally investigate or prosecute any alcohol or drug abuse patient.[facility] HospitalIn the event this information is protected by the Federal Confidentiality of Alcohol and Drug Abuse Patient Records regulations: The Federal rules restrict any use of the information to criminally investigate or prosecute any alcohol or drug abuse patient.[facility] HospitalIn the event this information is protected by the Federal Confidentiality of Alcohol and Drug Abuse Patient Records regulations: The Federal rules restrict any use of the information to criminally investigate or prosecute any alcohol or drug abuse patient.[facility] HospitalIn the event this information is protected by the Federal Confidentiality of Alcohol and Drug Abuse Patient Records regulations: The Federal rules restrict any use of the information to criminally investigate or prosecute any alcohol or drug abuse patient.[facility] HospitalIn the event this information is protected by the Federal Confidentiality of Alcohol and Drug Abuse Patient Records regulations: The Federal rules restrict any use of the information to criminally investigate or prosecute any alcohol or drug abuse patient.[facility] HospitalIn the event this information is protected by the Federal Confidentiality of Alcohol and Drug Abuse Patient Records regulations: The Federal rules restrict any use of the information to criminally investigate or prosecute any alcohol or drug abuse patient.[facility] HospitalIn the event this information is protected by the Federal Confidentiality of Alcohol and Drug Abuse Patient Records regulations: The Federal rules restrict any use of the information to criminally investigate or prosecute any alcohol or drug abuse patient.[facility] HospitalIn the event this information is protected by the Federal Confidentiality of Alcohol and Drug Abuse Patient Records regulations: The Federal rules restrict any use of the information to criminally investigate or prosecute any alcohol or drug abuse patient.[facility]In the event this information is protected by the Federal Confidentiality of Alcohol and Drug Abuse Patient Records regulations: The Federal rules restrict any use of the information to criminally investigate or prosecute any alcohol or drug abuse patient.[facility]In the event this information is protected by the Federal Confidentiality of Alcohol and Drug Abuse Patient Records regulations: The Federal rules restrict any use of the information to criminally investigate or prosecute any alcohol or drug abuse patient.[facility] HospitalIn the event this information is protected by the Federal Confidentiality of Alcohol and Drug Abuse Patient Records regulations: The Federal rules restrict any use of the information to criminally investigate or prosecute any alcohol or drug abuse patient.[facility]In the event this information is protected by the Federal Confidentiality of Alcohol and Drug Abuse Patient Records regulations: The Federal rules restrict any use of the information to criminally investigate or prosecute any alcohol or drug abuse patient.[facility] HospitalIn the event this information is protected by the Federal Confidentiality of Alcohol and Drug Abuse Patient Records regulations: The Federal rules restrict any use of the information to criminally investigate or prosecute any alcohol or drug abuse patient.[facility] HospitalIn the event this information is protected by the Federal Confidentiality of Alcohol and Drug Abuse Patient Records regulations: The Federal rules restrict any use of the information to criminally investigate or prosecute any alcohol or drug abuse patient.[facility] HospitalIn the event this information is protected by the Federal Confidentiality of Alcohol and Drug Abuse Patient Records regulations: The Federal rules restrict any use of the information to criminally investigate or prosecute any alcohol or drug abuse patient.[facility] HospitalIn the event this information is protected by the Federal Confidentiality of Alcohol and Drug Abuse Patient Records regulations: The Federal rules restrict any use of the information to criminally investigate or prosecute any alcohol or drug abuse patient.[facility] HospitalIn the event this information is protected by the Federal Confidentiality of Alcohol and Drug Abuse Patient Records regulations: The Federal rules restrict any use of the information to criminally investigate or prosecute any alcohol or drug abuse patient.[facility]In the event this information is protected by the Federal Confidentiality of Alcohol and Drug Abuse Patient Records regulations: The Federal rules restrict any use of the information to criminally investigate or prosecute any alcohol or drug abuse patient.[facility] HospitalIn the event this information is protected by the Federal Confidentiality of Alcohol and Drug Abuse Patient Records regulations: The Federal rules restrict any use of the information to criminally investigate or prosecute any alcohol or drug abuse patient.[facility] HospitalIn the event this information is protected by the Federal Confidentiality of Alcohol and Drug Abuse Patient Records regulations: The Federal rules restrict any use of the information to criminally investigate or prosecute any alcohol or drug abuse patient.[facility]In the event this information is protected by the Federal Confidentiality of Alcohol and Drug Abuse Patient Records regulations: The Federal rules restrict any use of the information to criminally investigate or prosecute any alcohol or drug abuse patient.[facility] HospitalIn the event this information is protected by the Federal Confidentiality of Alcohol and Drug Abuse Patient Records regulations: The Federal rules restrict any use of the information to criminally investigate or prosecute any alcohol or drug abuse patient.[facility] HospitalIn the event this information is protected by the Federal Confidentiality of Alcohol and Drug Abuse Patient Records regulations: The Federal rules restrict any use of the information to criminally investigate or prosecute any alcohol or drug abuse patient.[facility] HospitalIn the event this information is protected by the Federal Confidentiality of Alcohol and Drug Abuse Patient Records regulations: The Federal rules restrict any use of the information to criminally investigate or prosecute any alcohol or drug abuse patient.[facility] HospitalIn the event this information is protected by the Federal Confidentiality of Alcohol and Drug Abuse Patient Records regulations: The Federal rules restrict any use of the information to criminally investigate or prosecute any alcohol or drug abuse patient.[facility] HospitalIn the event this information is protected by the Federal Confidentiality of Alcohol and Drug Abuse Patient Records regulations: The Federal rules restrict any use of the information to criminally investigate or prosecute any alcohol or drug abuse patient.[facility] HospitalIn the event this information is protected by the Federal Confidentiality of Alcohol and Drug Abuse Patient Records regulations: The Federal rules restrict any use of the information to criminally investigate or prosecute any alcohol or drug abuse patient.[facility] HospitalIn the event this information is protected by the Federal Confidentiality of Alcohol and Drug Abuse Patient Records regulations: The Federal rules restrict any use of the information to criminally investigate or prosecute any alcohol or drug abuse patient.[facility] HospitalIn the event this information is protected by the Federal Confidentiality of Alcohol and Drug Abuse Patient Records regulations: The Federal rules restrict any use of the information to criminally investigate or prosecute any alcohol or drug abuse patient.[facility] HospitalIn the event this information is protected by the Federal Confidentiality of Alcohol and Drug Abuse Patient Records regulations: The Federal rules restrict any use of the information to criminally investigate or prosecute any alcohol or drug abuse patient.[facility] HospitalIn the event this information is protected by the Federal Confidentiality of Alcohol and Drug Abuse Patient Records regulations: The Federal rules restrict any use of the information to criminally investigate or prosecute any alcohol or drug abuse patient.[facility] HospitalIn the event this information is protected by the Federal Confidentiality of Alcohol and Drug Abuse Patient Records regulations: The Federal rules restrict any use of the information to criminally investigate or prosecute any alcohol or drug abuse patient.[facility] HospitalIn the event this information is protected by the Federal Confidentiality of Alcohol and Drug Abuse Patient Records regulations: The Federal rules restrict any use of the information to criminally investigate or prosecute any alcohol or drug abuse patient.[facility] HospitalIn the event this information is protected by the Federal Confidentiality of Alcohol and Drug Abuse Patient Records regulations: The Federal rules restrict any use of the information to criminally investigate or prosecute any alcohol or drug abuse patient.[facility] HospitalIn the event this information is protected by the Federal Confidentiality of Alcohol and Drug Abuse Patient Records regulations: The Federal rules restrict any use of the information to criminally investigate or prosecute any alcohol or drug abuse patient.[facility]In the event this information is protected by the Federal Confidentiality of Alcohol and Drug Abuse Patient Records regulations: The Federal rules restrict any use of the information to criminally investigate or prosecute any alcohol or drug abuse patient.[facility] HospitalIn the event this information is protected by the Federal Confidentiality of Alcohol and Drug Abuse Patient Records regulations: The Federal rules restrict any use of the information to criminally investigate or prosecute any alcohol or drug abuse patient.[facility]In the event this information is protected by the Federal Confidentiality of Alcohol and Drug Abuse Patient Records regulations: The Federal rules restrict any use of the information to criminally investigate or prosecute any alcohol or drug abuse patient.[facility] HospitalIn the event this information is protected by the Federal Confidentiality of Alcohol and Drug Abuse Patient Records regulations: The Federal rules restrict any use of the information to criminally investigate or prosecute any alcohol or drug abuse patient.[facility]In the event this information is protected by the Federal Confidentiality of Alcohol and Drug Abuse Patient Records regulations: The Federal rules restrict any use of the information to criminally investigate or prosecute any alcohol or drug abuse patient.[facility]In the event this information is protected by the Federal Confidentiality of Alcohol and Drug Abuse Patient Records regulations: The Federal rules restrict any use of the information to criminally investigate or prosecute any alcohol or drug abuse patient.[facility]In the event this information is protected by the Federal Confidentiality of Alcohol and Drug Abuse Patient Records regulations: The Federal rules restrict any use of the information to criminally investigate or prosecute any alcohol or drug abuse patient.[facility]In the event this information is protected by the Federal Confidentiality of Alcohol and Drug Abuse Patient Records regulations: The Federal rules restrict any use of the information to criminally investigate or prosecute any alcohol or drug abuse patient.[facility]In the event this information is protected by the Federal Confidentiality of Alcohol and Drug Abuse Patient Records regulations: The Federal rules restrict any use of the information to criminally investigate or prosecute any alcohol or drug abuse patient.[facility]In the event this information is protected by the Federal Confidentiality of Alcohol and Drug Abuse Patient Records regulations: The Federal rules restrict any use of the information to criminally investigate or prosecute any alcohol or drug abuse patient.[facility]In the event this information is protected by the Federal Confidentiality of Alcohol and Drug Abuse Patient Records regulations: The Federal rules restrict any use of the information to criminally investigate or prosecute any alcohol or drug abuse patient.[facility]In the event this information is protected by the Federal Confidentiality of Alcohol and Drug Abuse Patient Records regulations: The Federal rules restrict any use of the information to criminally investigate or prosecute any alcohol or drug abuse patient.[facility] HospitalIn the event this information is protected by the Federal Confidentiality of Alcohol and Drug Abuse Patient Records regulations: The Federal rules restrict any use of the information to criminally investigate or prosecute any alcohol or drug abuse patient.[facility]In the event this information is protected by the Federal Confidentiality of Alcohol and Drug Abuse Patient Records regulations: The Federal rules restrict any use of the information to criminally investigate or prosecute any alcohol or drug abuse patient.[facility]In the event this information is protected by the Federal Confidentiality of Alcohol and Drug Abuse Patient Records regulations: The Federal rules restrict any use of the information to criminally investigate or prosecute any alcohol or drug abuse patient.[facility]In the event this information is protected by the Federal Confidentiality of Alcohol and Drug Abuse Patient Records regulations: The Federal rules restrict any use of the information to criminally investigate or prosecute any alcohol or drug abuse patient.[facility]In the event this information is protected by the Federal Confidentiality of Alcohol and Drug Abuse Patient Records regulations: The Federal rules restrict any use of the information to criminally investigate or prosecute any alcohol or drug abuse patient.[facility]In the event this information is protected by the Federal Confidentiality of Alcohol and Drug Abuse Patient Records regulations: The Federal rules restrict any use of the information to criminally investigate or prosecute any alcohol or drug abuse patient.[facility]In the event this information is protected by the Federal Confidentiality of Alcohol and Drug Abuse Patient Records regulations: The Federal rules restrict any use of the information to criminally investigate or prosecute any alcohol or drug abuse patient.[facility]In the event this information is protected by the Federal Confidentiality of Alcohol and Drug Abuse Patient Records regulations: The Federal rules restrict any use of the information to criminally investigate or prosecute any alcohol or drug abuse patient.[facility]In the event this information is protected by the Federal Confidentiality of Alcohol and Drug Abuse Patient Records regulations: The Federal rules restrict any use of the information to criminally investigate or prosecute any alcohol or drug abuse patient.[facility]In the event this information is protected by the Federal Confidentiality of Alcohol and Drug Abuse Patient Records regulations: The Federal rules restrict any use of the information to criminally investigate or prosecute any alcohol or drug abuse patient.[facility]In the event this information is protected by the Federal Confidentiality of Alcohol and Drug Abuse Patient Records regulations: The Federal rules restrict any use of the information to criminally investigate or prosecute any alcohol or drug abuse patient.[facility]In the event this information is protected by the Federal Confidentiality of Alcohol and Drug Abuse Patient Records regulations: The Federal rules restrict any use of the information to criminally investigate or prosecute any alcohol or drug abuse patient.[facility]In the event this information is protected by the Federal Confidentiality of Alcohol and Drug Abuse Patient Records regulations: The Federal rules restrict any use of the information to criminally investigate or prosecute any alcohol or drug abuse patient.[facility]In the event this information is protected by the Federal Confidentiality of Alcohol and Drug Abuse Patient Records regulations: The Federal rules restrict any use of the information to criminally investigate or prosecute any alcohol or drug abuse patient.[facility]In the event this information is protected by the Federal Confidentiality of Alcohol and Drug Abuse Patient Records regulations: The Federal rules restrict any use of the information to criminally investigate or prosecute any alcohol or drug abuse patient.[facility]In the event this information is protected by the Federal Confidentiality of Alcohol and Drug Abuse Patient Records regulations: The Federal rules restrict any use of the information to criminally investigate or prosecute any alcohol or drug abuse patient.[facility] HospitalIn the event this information is protected by the Federal Confidentiality of Alcohol and Drug Abuse Patient Records regulations: The Federal rules restrict any use of the information to criminally investigate or prosecute any alcohol or drug abuse patient.[facility] HospitalIn the event this information is protected by the Federal Confidentiality of Alcohol and Drug Abuse Patient Records regulations: The Federal rules restrict any use of the information to criminally investigate or prosecute any alcohol or drug abuse patient.[facility] HospitalIn the event this information is protected by the Federal Confidentiality of Alcohol and Drug Abuse Patient Records regulations: The Federal rules restrict any use of the information to criminally investigate or prosecute any alcohol or drug abuse patient.[facility] HospitalIn the event this information is protected by the Federal Confidentiality of Alcohol and Drug Abuse Patient Records regulations: The Federal rules restrict any use of the information to criminally investigate or prosecute any alcohol or drug abuse patient.[facility] HospitalIn the event this information is protected by the Federal Confidentiality of Alcohol and Drug Abuse Patient Records regulations: The Federal rules restrict any use of the information to criminally investigate or prosecute any alcohol or drug abuse patient.[facility] HospitalIn the event this information is protected by the Federal Confidentiality of Alcohol and Drug Abuse Patient Records regulations: The Federal rules restrict any use of the information to criminally investigate or prosecute any alcohol or drug abuse patient.[facility] HospitalIn the event this information is protected by the Federal Confidentiality of Alcohol and Drug Abuse Patient Records regulations: The Federal rules restrict any use of the information to criminally investigate or prosecute any alcohol or drug abuse patient.[facility] HospitalIn the event this information is protected by the Federal Confidentiality of Alcohol and Drug Abuse Patient Records regulations: The Federal rules restrict any use of the information to criminally investigate or prosecute any alcohol or drug abuse patient.[facility] HospitalIn the event this information is protected by the Federal Confidentiality of Alcohol and Drug Abuse Patient Records regulations: The Federal rules restrict any use of the information to criminally investigate or prosecute any alcohol or drug abuse patient.[facility] HospitalIn the event this information is protected by the Federal Confidentiality of Alcohol and Drug Abuse Patient Records regulations: The Federal rules restrict any use of the information to criminally investigate or prosecute any alcohol or drug abuse patient.[facility] HospitalIn the event this information is protected by the Federal Confidentiality of Alcohol and Drug Abuse Patient Records regulations: The Federal rules restrict any use of the information to criminally investigate or prosecute any alcohol or drug abuse patient.[facility] HospitalIn the event this information is protected by the Federal Confidentiality of Alcohol and Drug Abuse Patient Records regulations: The Federal rules restrict any use of the information to criminally investigate or prosecute any alcohol or drug abuse patient.[facility] HospitalIn the event this information is protected by the Federal Confidentiality of Alcohol and Drug Abuse Patient Records regulations: The Federal rules restrict any use of the information to criminally investigate or prosecute any alcohol or drug abuse patient.[facility] HospitalIn the event this information is protected by the Federal Confidentiality of Alcohol and Drug Abuse Patient Records regulations: The Federal rules restrict any use of the information to criminally investigate or prosecute any alcohol or drug abuse patient.[facility] HospitalIn the event this information is protected by the Federal Confidentiality of Alcohol and Drug Abuse Patient Records regulations: The Federal rules restrict any use of the information to criminally investigate or prosecute any alcohol or drug abuse patient.[facility] HospitalIn the event this information is protected by the Federal Confidentiality of Alcohol and Drug Abuse Patient Records regulations: The Federal rules restrict any use of the information to criminally investigate or prosecute any alcohol or drug abuse patient.[facility] HospitalIn the event this information is protected by the Federal Confidentiality of Alcohol and Drug Abuse Patient Records regulations: The Federal rules restrict any use of the information to criminally investigate or prosecute any alcohol or drug abuse patient.[facility] HospitalIn the event this information is protected by the Federal Confidentiality of Alcohol and Drug Abuse Patient Records regulations: The Federal rules restrict any use of the information to criminally investigate or prosecute any alcohol or drug abuse patient.[facility] HospitalIn the event this information is protected by the Federal Confidentiality of Alcohol and Drug Abuse Patient Records regulations: The Federal rules restrict any use of the information to criminally investigate or prosecute any alcohol or drug abuse patient.[facility] HospitalIn the event this information is protected by the Federal Confidentiality of Alcohol and Drug Abuse Patient Records regulations: The Federal rules restrict any use of the information to criminally investigate or prosecute any alcohol or drug abuse patient.[facility] HospitalIn the event this information is protected by the Federal Confidentiality of Alcohol and Drug Abuse Patient Records regulations: The Federal rules restrict any use of the information to criminally investigate or prosecute any alcohol or drug abuse patient.[facility] HospitalIn the event this information is protected by the Federal Confidentiality of Alcohol and Drug Abuse Patient Records regulations: The Federal rules restrict any use of the information to criminally investigate or prosecute any alcohol or drug abuse patient.[facility] HospitalIn the event this information is protected by the Federal Confidentiality of Alcohol and Drug Abuse Patient Records regulations: The Federal rules restrict any use of the information to criminally investigate or prosecute any alcohol or drug abuse patient.[facility] HospitalIn the event this information is protected by the Federal Confidentiality of Alcohol and Drug Abuse Patient Records regulations: The Federal rules restrict any use of the information to criminally investigate or prosecute any alcohol or drug abuse patient.[facility] HospitalIn the event this information is protected by the Federal Confidentiality of Alcohol and Drug Abuse Patient Records regulations: The Federal rules restrict any use of the information to criminally investigate or prosecute any alcohol or drug abuse patient.[facility] HospitalIn the event this information is protected by the Federal Confidentiality of Alcohol and Drug Abuse Patient Records regulations: The Federal rules restrict any use of the information to criminally investigate or prosecute any alcohol or drug abuse patient.[facility] HospitalIn the event this information is protected by the Federal Confidentiality of Alcohol and Drug Abuse Patient Records regulations: The Federal rules restrict any use of the information to criminally investigate or prosecute any alcohol or drug abuse patient.[facility] HospitalIn the event this information is protected by the Federal Confidentiality of Alcohol and Drug Abuse Patient Records regulations: The Federal rules restrict any use of the information to criminally investigate or prosecute any alcohol or drug abuse patient.[facility] HospitalIn the event this information is protected by the Federal Confidentiality of Alcohol and Drug Abuse Patient Records regulations: The Federal rules restrict any use of the information to criminally investigate or prosecute any alcohol or drug abuse patient.[facility] HospitalIn the event this information is protected by the Federal Confidentiality of Alcohol and Drug Abuse Patient Records regulations: The Federal rules restrict any use of the information to criminally investigate or prosecute any alcohol or drug abuse patient.[facility] HospitalIn the event this information is protected by the Federal Confidentiality of Alcohol and Drug Abuse Patient Records regulations: The Federal rules restrict any use of the information to criminally investigate or prosecute any alcohol or drug abuse patient.[facility] HospitalIn the event this information is protected by the Federal Confidentiality of Alcohol and Drug Abuse Patient Records regulations: The Federal rules restrict any use of the information to criminally investigate or prosecute any alcohol or drug abuse patient.[facility] HospitalIn the event this information is protected by the Federal Confidentiality of Alcohol and Drug Abuse Patient Records regulations: The Federal rules restrict any use of the information to criminally investigate or prosecute any alcohol or drug abuse patient.[facility] HospitalIn the event this information is protected by the Federal Confidentiality of Alcohol and Drug Abuse Patient Records regulations: The Federal rules restrict any use of the information to criminally investigate or prosecute any alcohol or drug abuse patient.[facility] HospitalIn the event this information is protected by the Federal Confidentiality of Alcohol and Drug Abuse Patient Records regulations: The Federal rules restrict any use of the information to criminally investigate or prosecute any alcohol or drug abuse patient.[facility] HospitalIn the event this information is protected by the Federal Confidentiality of Alcohol and Drug Abuse Patient Records regulations: The Federal rules restrict any use of the information to criminally investigate or prosecute any alcohol or drug abuse patient.[facility] HospitalIn the event this information is protected by the Federal Confidentiality of Alcohol and Drug Abuse Patient Records regulations: The Federal rules restrict any use of the information to criminally investigate or prosecute any alcohol or drug abuse patient.[facility] HospitalIn the event this information is protected by the Federal Confidentiality of Alcohol and Drug Abuse Patient Records regulations: The Federal rules restrict any use of the information to criminally investigate or prosecute any alcohol or drug abuse patient.[facility] HospitalIn the event this information is protected by the Federal Confidentiality of Alcohol and Drug Abuse Patient Records regulations: The Federal rules restrict any use of the information to criminally investigate or prosecute any alcohol or drug abuse patient.[facility] HospitalIn the event this information is protected by the Federal Confidentiality of Alcohol and Drug Abuse Patient Records regulations: The Federal rules restrict any use of the information to criminally investigate or prosecute any alcohol or drug abuse patient.[facility] HospitalIn the event this information is protected by the Federal Confidentiality of Alcohol and Drug Abuse Patient Records regulations: The Federal rules restrict any use of the information to criminally investigate or prosecute any alcohol or drug abuse patient.[facility] HospitalIn the event this information is protected by the Federal Confidentiality of Alcohol and Drug Abuse Patient Records regulations: The Federal rules restrict any use of the information to criminally investigate or prosecute any alcohol or drug abuse patient.[facility] HospitalIn the event this information is protected by the Federal Confidentiality of Alcohol and Drug Abuse Patient Records regulations: The Federal rules restrict any use of the information to criminally investigate or prosecute any alcohol or drug abuse patient.[facility] HospitalIn the event this information is protected by the Federal Confidentiality of Alcohol and Drug Abuse Patient Records regulations: The Federal rules restrict any use of the information to criminally investigate or prosecute any alcohol or drug abuse patient.[facility] HospitalIn the event this information is protected by the Federal Confidentiality of Alcohol and Drug Abuse Patient Records regulations: The Federal rules restrict any use of the information to criminally investigate or prosecute any alcohol or drug abuse patient.[facility] HospitalIn the event this information is protected by the Federal Confidentiality of Alcohol and Drug Abuse Patient Records regulations: The Federal rules restrict any use of the information to criminally investigate or prosecute any alcohol or drug abuse patient.[facility] HospitalIn the event this information is protected by the Federal Confidentiality of Alcohol and Drug Abuse Patient Records regulations: The Federal rules restrict any use of the information to criminally investigate or prosecute any alcohol or drug abuse patient.[facility] HospitalIn the event this information is protected by the Federal Confidentiality of Alcohol and Drug Abuse Patient Records regulations: The Federal rules restrict any use of the information to criminally investigate or prosecute any alcohol or drug abuse patient.[facility] HospitalIn the event this information is protected by the Federal Confidentiality of Alcohol and Drug Abuse Patient Records regulations: The Federal rules restrict any use of the information to criminally investigate or prosecute any alcohol or drug abuse patient.[facility] HospitalIn the event this information is protected by the Federal Confidentiality of Alcohol and Drug Abuse Patient Records regulations: The Federal rules restrict any use of the information to criminally investigate or prosecute any alcohol or drug abuse patient.[facility] HospitalIn the event this information is protected by the Federal Confidentiality of Alcohol and Drug Abuse Patient Records regulations: The Federal rules restrict any use of the information to criminally investigate or prosecute any alcohol or drug abuse patient.[facility] HospitalIn the event this information is protected by the Federal Confidentiality of Alcohol and Drug Abuse Patient Records regulations: The Federal rules restrict any use of the information to criminally investigate or prosecute any alcohol or drug abuse patient.[facility] HospitalIn the event this information is protected by the Federal Confidentiality of Alcohol and Drug Abuse Patient Records regulations: The Federal rules restrict any use of the information to criminally investigate or prosecute any alcohol or drug abuse patient.[facility] HospitalIn the event this information is protected by the Federal Confidentiality of Alcohol and Drug Abuse Patient Records regulations: The Federal rules restrict any use of the information to criminally investigate or prosecute any alcohol or drug abuse patient.[facility] HospitalIn the event this information is protected by the Federal Confidentiality of Alcohol and Drug Abuse Patient Records regulations: The Federal rules restrict any use of the information to criminally investigate or prosecute any alcohol or drug abuse patient.[facility] HospitalIn the event this information is protected by the Federal Confidentiality of Alcohol and Drug Abuse Patient Records regulations: The Federal rules restrict any use of the information to criminally investigate or prosecute any alcohol or drug abuse patient.[facility] HospitalIn the event this information is protected by the Federal Confidentiality of Alcohol and Drug Abuse Patient Records regulations: The Federal rules restrict any use of the information to criminally investigate or prosecute any alcohol or drug abuse patient.[facility] HospitalIn the event this information is protected by the Federal Confidentiality of Alcohol and Drug Abuse Patient Records regulations: The Federal rules restrict any use of the information to criminally investigate or prosecute any alcohol or drug abuse patient.[facility] HospitalIn the event this information is protected by the Federal Confidentiality of Alcohol and Drug Abuse Patient Records regulations: The Federal rules restrict any use of the information to criminally investigate or prosecute any alcohol or drug abuse patient.[facility] HospitalIn the event this information is protected by the Federal Confidentiality of Alcohol and Drug Abuse Patient Records regulations: The Federal rules restrict any use of the information to criminally investigate or prosecute any alcohol or drug abuse patient.[facility] HospitalIn the event this information is protected by the Federal Confidentiality of Alcohol and Drug Abuse Patient Records regulations: The Federal rules restrict any use of the information to criminally investigate or prosecute any alcohol or drug abuse patient.[facility] HospitalIn the event this information is protected by the Federal Confidentiality of Alcohol and Drug Abuse Patient Records regulations: The Federal rules restrict any use of the information to criminally investigate or prosecute any alcohol or drug abuse patient.[facility] HospitalIn the event this information is protected by the Federal Confidentiality of Alcohol and Drug Abuse Patient Records regulations: The Federal rules restrict any use of the information to criminally investigate or prosecute any alcohol or drug abuse patient.[facility]In the event this information is protected by the Federal Confidentiality of Alcohol and Drug Abuse Patient Records regulations: The Federal rules restrict any use of the information to criminally investigate or prosecute any alcohol or drug abuse patient.[facility] HospitalIn the event this information is protected by the Federal Confidentiality of Alcohol and Drug Abuse Patient Records regulations: The Federal rules restrict any use of the information to criminally investigate or prosecute any alcohol or drug abuse patient.[facility] HospitalIn the event this information is protected by the Federal Confidentiality of Alcohol and Drug Abuse Patient Records regulations: The Federal rules restrict any use of the information to criminally investigate or prosecute any alcohol or drug abuse patient.[facility]In the event this information is protected by the Federal Confidentiality of Alcohol and Drug Abuse Patient Records regulations: The Federal rules restrict any use of the information to criminally investigate or prosecute any alcohol or drug abuse patient.[facility]In the event this information is protected by the Federal Confidentiality of Alcohol and Drug Abuse Patient Records regulations: The Federal rules restrict any use of the information to criminally investigate or prosecute any alcohol or drug abuse patient.[facility] HospitalIn the event this information is protected by the Federal Confidentiality of Alcohol and Drug Abuse Patient Records regulations: The Federal rules restrict any use of the information to criminally investigate or prosecute any alcohol or drug abuse patient.[facility]In the event this information is protected by the Federal Confidentiality of Alcohol and Drug Abuse Patient Records regulations: The Federal rules restrict any use of the information to criminally investigate or prosecute any alcohol or drug abuse patient.[facility]In the event this information is protected by the Federal Confidentiality of Alcohol and Drug Abuse Patient Records regulations: The Federal rules restrict any use of the information to criminally investigate or prosecute any alcohol or drug abuse patient.[facility] HospitalIn the event this information is protected by the Federal Confidentiality of Alcohol and Drug Abuse Patient Records regulations: The Federal rules restrict any use of the information to criminally investigate or prosecute any alcohol or drug abuse patient.[facility] HospitalIn the event this information is protected by the Federal Confidentiality of Alcohol and Drug Abuse Patient Records regulations: The Federal rules restrict any use of the information to criminally investigate or prosecute any alcohol or drug abuse patient.[facility] HospitalIn the event this information is protected by the Federal Confidentiality of Alcohol and Drug Abuse Patient Records regulations: The Federal rules restrict any use of the information to criminally investigate or prosecute any alcohol or drug abuse patient.[facility]In the event this information is protected by the Federal Confidentiality of Alcohol and Drug Abuse Patient Records regulations: The Federal rules restrict any use of the information to criminally investigate or prosecute any alcohol or drug abuse patient.[facility]In the event this information is protected by the Federal Confidentiality of Alcohol and Drug Abuse Patient Records regulations: The Federal rules restrict any use of the information to criminally investigate or prosecute any alcohol or drug abuse patient.[facility]In the event this information is protected by the Federal Confidentiality of Alcohol and Drug Abuse Patient Records regulations: The Federal rules restrict any use of the information to criminally investigate or prosecute any alcohol or drug abuse patient.[facility] HospitalIn the event this information is protected by the Federal Confidentiality of Alcohol and Drug Abuse Patient Records regulations: The Federal rules restrict any use of the information to criminally investigate or prosecute any alcohol or drug abuse patient.[facility] HospitalIn the event this information is protected by the Federal Confidentiality of Alcohol and Drug Abuse Patient Records regulations: The Federal rules restrict any use of the information to criminally investigate or prosecute any alcohol or drug abuse patient.[facility] HospitalIn the event this information is protected by the Federal Confidentiality of Alcohol and Drug Abuse Patient Records regulations: The Federal rules restrict any use of the information to criminally investigate or prosecute any alcohol or drug abuse patient.[facility] HospitalIn the event this information is protected by the Federal Confidentiality of Alcohol and Drug Abuse Patient Records regulations: The Federal rules restrict any use of the information to criminally investigate or prosecute any alcohol or drug abuse patient.[facility] Care Teams (unrecognized sec tion and content) Urban Forester Relationship Specialty Start Date End Date Kentrell Dhaliwal II, MD [address] [place] [address] [address] [place], [place] [phone] PCP - General Family Practice 08/18/20 Maximo Benavides, sand buffer Manager Presentation 11/25/21 01/25/22 Urban Forester Relationship Specialty Start Date End Date Kentrell Dhaliwal II, MD [address] [facility] [address] [place], [place] [id number] PCP - General Family Practice 08/18/20 Maximo Benavides, sand buffer Manager Presentation 11/25/21 01/25/22 Urban Forester Relationship Specialty Start Date End Date Kentrell Dhaliwal II, MD [address] [facility] [address] [place], [place] [phone] PCP - General Family Practice 08/18/20 Maximo Benavides RN Primary Care Manager Presentation 11/25/21 01/25/22 Urban Forester Relationship Specialty Start Date End Date Kentrell Dhaliwal II, MD [address] [facility] [facility] [place] [address] PCP - General Family Practice 08/18/20 Maximo Benavides RN Primary Care Manager Presentation 11/25/21 01/25/22 Urban Forester Relationship Specialty Start Date End Date Kentrell Dhaliwal II, MD [address] [facility] [place] [address] PCP - General Family Practice 08/18/20 Maximo Benavides RN Primary Care Manager Presentation 11/25/21 01/25/22 Urban Forester Relationship Specialty Start Date End Date Kentrell Dhaliwal II, MD [address] [facility] [place] [address] PCP - General Family Practice 08/18/20 Maximo Benavides, sand buffer Manager Presentation 11/25/21 01/25/22 Urban Forester Relationship Specialty Start Date End Date Kentrell Dhaliwal II, MD [address] [facility] [place] [address] PCP - General Family Practice 08/18/20 Maximo Benavides, sand buffer Manager Presentation 11/25/21 01/25/22 Urban Forester Relationship Specialty Start Date End Date Kentrell Dhaliwal II, MD [address] [facility] [address] [place], [place] [id number] PCP - General Family Practice 08/18/20 Maximo Benavides, sand buffer Manager Presentation 11/25/21 01/25/22 Urban Forester Relationship Specialty Start Date End Date Kentrell Dhaliwal II, MD [address] [place] [address] [address] [place], [place] 966162 PCP - General Family Practice 08/18/20 Maximo Benavides, sand buffer Manager Presentation 11/25/21 01/25/22 Urban Forester Relationship Specialty Start Date End Date Kentrell Dhaliwal II, MD [address] [place] [address] [address] [place], [place] 016302 PCP - General Family Practice 08/18/20 Maximo Benavides, sand buffer Manager Presentation 11/25/21 01/25/22 Urban Forester Relationship Specialty Start Date End Date Kentrell Dhaliwal II, MD [address] [place] [address] [address] [place], [place] 275622 PCP - General Family Practice 08/18/20 Maximo Benavides, sand buffer Manager Presentation 11/25/21 01/25/22 Urban Forester Relationship Specialty Start Date End Date Kentrell Dhaliwal II, MD [address] [place] [address] [place], [place] [id number] PCP - General Family Practice 08/18/20 Maximo Benavides, sand buffer Manager Presentation 11/25/21 01/20/22 Urban Forester Relationship Specialty Start Date End Date Kentrell Dhaliwal II, MD [address] [place] [address] [place], [place] [id number] PCP - General Family Practice 08/18/20 Maximo Benavides, sand buffer Manager Presentation 11/25/21 01/20/22 Urban Forester Relationship Specialty Start Date End Date Kentrell Dhaliwal II, MD [address] [place] [address] [place], [place] [id number] PCP - General Family Practice 08/18/20 Maximo Benavides, sand buffer Manager Presentation 11/25/21 01/20/22 Urban Forester Relationship Specialty Start Date End Date Kentrell Dhaliwal II, MD [address] [facility] [address] [place], [place] [address]202 PCP - General Family Practice 08/18/20 Maximo Benavides, sand buffer Manager Presentation 11/25/21 01/20/22 Urban Forester Relationship Specialty Start Date End Date Kentrell Dhaliwal II, MD [address] [place] [address] [place], [place] [id number] PCP - General Family Practice 08/18/20 Maximo Benavides RN Primary Care Manager Presentation 11/25/21 01/20/22 Urban Forester Relationship Specialty Start Date End Date Kentrell Dhaliwal II, MD [address] [place] [address] [place] [address] PCP - General Family Practice 08/18/20 Maximo Benavides sand buffer Manager Presentation 11/25/21 01/20/22 Urban Forester Relationship Specialty Start Date End Date Kentrell Dhaliwal II, MD [address] [place] [address] [place] [address] PCP - General Family Practice 08/18/20 Maximo Benavides, sand buffer Manager Presentation 11/25/21 01/20/22 Urban Forester Relationship Specialty Start Date End Date Kentrell Dhaliwal II, MD [address] [place] [address] [place] [address] PCP - General Family Practice 08/18/20 Urban Forester Relationship Specialty Start Date End Date Kentrell Dhaliwal II, MD [address] [place] [address] [place] [address] PCP - General Family Practice 08/18/20 Urban Forester Relationship Specialty Start Date End Date Kentrell Dhaliwal II, MD [address] [place] [address] [place] [address] PCP - General Family Practice 08/18/20 Urban Forester Relationship Specialty Start Date End Date Kentrell Dhaliwal II, MD [address] [facility] [place] [address] PCP - General Family Practice 08/18/20 Urban Forester Relationship Specialty Start Date End Date Kentrell Dhaliwal II, MD [address] [place] [address] [place] [address] PCP - General Family Practice 08/18/20 Urban Forester Relationship Specialty Start Date End Date Kentrell Dhaliwal II, MD [address] [place] [address] [place] [address] PCP - General Family Practice 08/18/20 Urban Forester Relationship Specialty Start Date End Date Kentrell Dhaliwal II, MD [address] [place] [address] [place] [address] PCP - General Family Practice 08/18/20 Urban Forester Relationship Specialty Start Date End Date Kentrell Dhaliwal II, MD [address] [place] [address] [place] [address] PCP - General Family Practice 08/18/20 Urban Forester Relationship Specialty Start Date End Date Kentrell Dhaliwal II, MD [address] [facility] [place] [address] PCP - General Family Practice 08/18/20 Urban Forester Relationship Specialty Start Date End Date Kentrell Dhaliwal II, MD [address] [place] [address] [place] [address] PCP - General Family Practice 08/18/20 Urban Forester Relationship Specialty Start Date End Date Kentrell Dhaliwal II, MD [address] [facility] [place] [address] PCP - General Family Practice 08/18/20 Urban Forester Relationship Specialty Start Date End Date Kentrell Dhaliwal II, MD [address] [place] [address] [place] [address] PCP - General Family Practice 08/18/20 Urban Forester Relationship Specialty Start Date End Date Kentrell Dhaliwal II, MD [address] [place] [address] [place] [address] PCP - General Family Practice 08/18/20 Urban Forester Relationship Specialty Start Date End Date Kentrell Dhaliwal II, MD [address] [place] [address] [place] [address] PCP - General Family Practice 08/18/20 Urban Forester Relationship Specialty Start Date End Date Kentrell Dhaliwal II, MD [address] [place] [address] [place] [address] PCP - General Family Practice 08/18/20 Urban Forester Relationship Specialty Start Date End Date Kentrlel Dhaliwal II, MD [address] [place] [address] [place] [address] PCP - General Family Practice 08/18/20 Urban Forester Relationship Specialty Start Date End Date Kentrell Dhaliwal II, MD [address] [place] [address] [place] [address] PCP - General Family Practice 08/18/20 Urban Forester Relationship Specialty Start Date End Date Kentrell Dhaliwal II, MD [address] [place] [address] [place] [address] PCP - General Family Practice 08/18/20 Urban Forester Relationship Specialty Start Date End Date Kentrell Dhaliwal II, MD [address] [place] [address] [place] [address] PCP - General Family Practice 08/18/20 Urban Forester Relationship Specialty Start Date End Date Kentrell Dhaliwal II, MD [address] [place] [address] [place] [address] PCP - General Family Practice 08/18/20 Urban Forester Relationship Specialty Start Date End Date Kentrell Dhaliwal II, MD [address] [place] [address] [place] [address] PCP - General Family Medicine 08/18/20 Urban Forester Relationship Specialty Start Date End Date Kentrell Dhaliwal II, MD [address] [place] [address] [place] [address] PCP - General Family Medicine 08/18/20 Urban Forester Relationship Specialty Start Date End Date Kentrell Dhaliwal II, MD [address] [place] [address] [place] [address] PCP - General Family Medicine 08/18/20 Urban Forester Relationship Specialty Start Date End Date Kentrell Dhaliwal II, MD [address] [place] [address] [place] [address] PCP - General Family Medicine 08/18/20 Urban Forester Relationship Specialty Start Date End Date Kentrell Dhaliwal II, MD [address] [place] [address] [place] [address] PCP - General Family Medicine 08/18/20 Urban Forester Relationship Specialty Start Date End Date Kentrell Dhaliwal II, MD [address] [place] [address] [place] [address] PCP - General Family Medicine 08/18/20 Silvia Hicks RN [address] [place] [address] Primary Care Manager Presentation 07/18/22 08/17/22 Urban Forester Relationship Specialty Start Date End Date Kentrell Dhaliwal II, MD [address] [place] [address] [place] [address] PCP - General Family Medicine 08/18/20 Silvia Hicks, DAVID [address] [place] [address] Primary Care Manager Presentation 07/18/22 08/17/22 Urban Forester Relationship Specialty Start Date End Date Kentrell Dhaliwal II, MD [address] [place] [address] [place] [address] PCP - General Family Medicine 08/18/20 Silvia Hicks, DAVID [address] [place] [address] Primary Care Manager Presentation 07/18/22 08/17/22 Urban Forester Relationship Specialty Start Date End Date Kentrell Dhaliwal II, MD [address] [place] [address] [place] [address] PCP - General Family Medicine 08/18/20 Silvia Hicks, DAVID [address] [place] [address] Primary Care Manager Presentation 07/18/22 08/17/22 Urban Forester Relationship Specialty Start Date End Date Kentrell Dhaliwal II, MD [address] [place] [address] [place] [address] PCP - General Family Medicine 08/18/20 Silvia Hicks, DAVID [address] [place] [address] Primary Care Manager Presentation 07/18/22 08/17/22 Urban Forester Relationship Specialty Start Date End Date Kentrell Dhaliwal II, MD [address] [place] [address] [place] [address] PCP - General Family Medicine 08/18/20 Silvia Hicks RN [address] [place] [address] Primary Care Manager Presentation 07/18/22 08/17/22 Urban Forester Relationship Specialty Start Date End Date Kentrell Dhaliwal II, MD [address] [place] [address] [place] [address] PCP - General Family Medicine 08/18/20 Urban Forester Relationship Specialty Start Date End Date Kentrell Dhaliwal II, MD [address] [place] [address] [place], [place] [id number] PCP - General Family Medicine 08/18/20 Team Status: Active Member Role Status Dates No Primary Care Physician Primary Care Provider Active Team Status: Inactive Member Role Status Dates Dr. Mika Anderson MD Emergency Provider Active No Primary Care Physician Primary Care Provider Active Urban Forester Relationship Specialty Start Date End Date Kentrell Dhaliwal II, MD [address] [place] [address] [address] [place], [place] 091872 PCP - General Family Medicine 08/18/20 Urban Forester Relationship Specialty Start Date End Date Kentrell Dhaliwal II, MD [address] [place] [address] [place], [place] [id number] PCP - General Family Medicine 08/18/20 Team [...] Dr. Aly Fragoso MD Other Provider Active Urban Forester Relationship Specialty Start Date End Date Kentrell Dhaliwal II, MD [address] [place] [address] [place], [place] [id number] PCP - [facility] 08/18/20 Team Status: Active Member Role Status [...] Dr. Matt Dominguez DO Emergency Provider Active Urban Forester Relationship Specialty Start Date End Date Kentrell Dhaliwal II, MD [address] [place] [address] [place], [place] 280852 PCP - [facility] 08/18/20 Urban Forester Relationship Specialty Start Date End Date Kentrell Dhaliwal II, MD [address] [place] [address] [address] [place], [place] 7[address]122 PCP - General Family [facility] 08/18/20 Urban Forester Relationship Specialty Start Date End Date Kentrell Dhaliwal II, MD [address] [place] [address] [address] [place], [place] 778732 PCP - General [facility] Medicine 08/18/20 Urban Forester Relationship Specialty Start Date End Date Kentrell Dhaliwal II, MD [address] [place] [address] [address] [place], [place] 763552 PCP - General [facility] Medicine 08/18/20 Urban Forester Relationship Specialty Start Date End Date Kentrell Dhaliwal II, MD [address] [place] [address] [address] [place], [place] 788612 PCP - [facility] Medicine 08/18/20 Urban Forester Relationship Specialty Start Date End Date Kentrell Dhaliwal II, MD [address] [place] [address] [address] [place], [place] 195582 PCP - [facility] Medicine 08/18/20 Urban Forester Relationship Specialty Start Date End Date Kentrell Dhaliwal II, MD [address] [place] [address] [address] [place], [place] 179662 PCP - [facility] Medicine 08/18/20 Urban Forester Relationship Specialty Start Date End Date Radha Doyle APRN.RETAIL SALES DIRECTOR [address] [place] [address] [place], [place] 861782 PCP - General Family Medicine 06/16/20 06/21/20 Radha Doyle APRN.RETAIL SALES DIRECTOR [address] [place] [address] [place], [place] 191412 PCP - General Family Medicine 06/22/20 07/15/20 Kentrell Dhaliwal II, MD [address] [place] [address] [address] [place], [place] 969572 PCP - General Family Medicine 07/16/20 08/03/20 Radha Doyle APRN.RETAIL SALES DIRECTOR [address] [place] [address] [place], [place] 789502 PCP - [facility] 08/04/20 08/17/20 Kentrell Dhaliwal II, MD [address] [place] [address] [place], [place] 231332 PCP - [facility] 08/18/20 Radha Doyle APRN.RETAIL SALES DIRECTOR [address] [place] [address] [place], [place] 713842 Family Medicine 06/22/20 07/15/20 Maximo Benavides, sand buffer Manager Presentation 11/25/21 01/20/22 Silvia Hicks, DAVID [address] [place] [place], [place] 975832 Primary Care Manager Presentation 07/18/22 08/17/22 Urban Forester Relationship Specialty Start Date End Date Kentrell Dhaliwal II, MD [address] [place] [address] [address] [place], [place] 108642 PCP - [facility] 08/18/20 Urban Forester Relationship Specialty Start Date End Date Kentrell Dhaliwal II, MD [address] [place] [address] [address] [place], [place] 710822 PCP - [facility] 08/18/20 Urban Forester Relationship Specialty Start Date End Date Kentrell Dhaliwal II, MD [address] [place] [address] [address] [place], [place] 330732 PCP - [facility] 08/18/20 Urban Forester Relationship Specialty Start Date End Date Kentrell Dhaliwal II, MD [address] [place] [address] [place], [place] [id number] PCP - General Family Medicine 08/18/20 Urban Forester Relationship Specialty Start Date End Date Kentrell Dhaliwal II, MD [address] [place] [address] [place] [address] PCP - General Family Medicine 08/18/20 Urban Forester Relationship Specialty Start Date End Date Kentrell Dhaliwal II, MD [address] [place] [address] [place] [address] PCP - General Family Medicine 08/18/20 Urban Forester Relationship Specialty Start Date End Date Kentrell Dhaliwal II, MD [address] [place] [address] [place] [address] PCP - General Family Medicine 08/18/20 Team [...] Primary Care Provider Active Dr. Federico Monique , DO Emergency Provider Active Dr. Jessica Thomas MD Admit Provider, Other Provider Active Dr. Paulo Umanzor MD Other Provider Active Dr. Aly Fragoso MD Other Provider Active Rogers Duarte PA, PA-C Attending Provider Active Team Status: Inactive Member Role Status Dates Dr. Kentrell Dhaliwal MD Primary Care Provider Active Dr. Federico Monique , DO Emergency Provider Active Dr. Jessica Thomas MD Admit Provider, Other Provider Active Dr. Paulo Umanzor MD Other Provider Active Dr. Aly Fragoso MD Attending Provider Active Team Status: Inactive Member Role Status Dates Dr. Kentrell Dhaliwal MD Primary Care Provider Active Dr. Mike Fraser , DO Emergency Provider Active Urban Forester Relationship Specialty Start Date End Date Kentrell Dhaliwal II, MD [address] [place] [address] [place] [address] PCP - General Family Medicine 08/18/20 Urban Forester Relationship Specialty Start Date End Date Kentrell Dhaliwal II, MD [address] [place] [address] [place] [address] PCP - General Family Medicine 08/18/20 Urban Forester Relationship Specialty Start Date End Date Kentrell Dhaliwal II, MD [address] [place] [address] [place] [address] PCP - General Family Medicine 08/18/20 Urban Forester Relationship Specialty Start Date End Date Kentrell Dhaliwal II, MD [address] [place] [address] [place] [address] PCP - General Family Medicine 08/18/20 Urban Forester Relationship Specialty Start Date End Date Kentrell Dhaliwal II, MD [address] [place] [address] [place], [place] 976052 PCP - General Family Medicine 08/18/20 Silvia Hicks RN [address] [place] [place] 449[address] Primary Care Manager Presentation 07/18/22 08/17/22 Urban Forester Relationship Specialty Start Date End Date Kentrell Dhaliwal II, MD [address] [place] [address] [place] [address] PCP - General Family Medicine 08/18/20 Urban Forester Relationship Specialty Start Date End Date Kentrell Dhaliwal II, MD [address] [place] [address] [place] [address] PCP - General Family Medicine 08/18/20 Urban Forester Relationship Specialty Start Date End Date Kentrell Dhaliwal II, MD [address] [place] [address] [place] [address] PCP - General Family Medicine 08/18/20 Urban Forester Relationship Specialty Start Date End Date Kentrell Dhaliwal II, MD [address] [place] [address] [place] [address] PCP - General Family Medicine 08/18/20 Gertrude Mccloud RN [address] [place] [address] [place] [address] Primary Care Manager Presentation 09/18/24 Urban Forester Relationship Specialty Start Date End Date Kentrell Dhaliwal II, MD [address] [place] [address] [place], [place] 978212 PCP - General Family Medicine 08/18/20 Urban Forester Relationship Specialty Start Date End Date Kentrell Dhaliwal II, MD [address] [place] [address] [place], [place] 370372 PCP - General Family Medicine 08/18/20 Gertrude Mccloud RN [address] [address] Primary Care Manager Presentation 09/18/24 Urban Forester Relationship Specialty Start Date End Date Kentrell Dhaliwal II, MD [address] [place] [address] [place] [address] PCP - General Family Medicine 08/18/20 Gertrude Mccloud RN [address] [address] Primary Care Manager Presentation 09/18/24 Urban Forester Relationship Specialty Start Date End Date Kentrell Dhaliwal II, MD [address] [place] [address] [place] [address] PCP - General Family Medicine 08/18/20 Gertrude Mccloud RN [address] [address] Primary Care Manager Presentation 09/18/24 Urban Forester Relationship Specialty Start Date End Date Kentrell Dhaliwal II, MD [address] [place] [address] [place] [address] PCP - General Family Medicine 08/18/20 Gertrude Mccloud RN [address] [address] Primary Care Manager Presentation 09/18/24 10/17/24 Urban Forester Relationship Specialty Start Date End Date Kentrell Dhaliwal II, MD PCP - General Family Medicine 08/18/20 Urban Forester Relationship Specialty Start Date End Date Kentrell Dhaliwal II, MD PCP - General Family Medicine 08/18/20 Urban Forester Relationship Specialty Start Date End Date Kentrell Dhaliwal II, MD PCP - General Family Medicine 08/18/20 Urban Forester Relationship Specialty Start Date End Date Kentrell Dhaliwal II, MD PCP - General Family Medicine 08/18/20 Urban Forester Relationship Specialty Start Date End Date Kentrell Dhaliwal II, MD PCP - General Family Medicine 08/18/20 Urban Forester Relationship Specialty Start Date End Date Kentrell Dhaliwal II, MD PCP - General Family Medicine 08/18/20 Urban Forester Relationship Specialty Start Date End Date Kentrell Dhaliwal II, MD PCP - General Family Medicine 08/18/20 Urban Forester Relationship Specialty Start Date End Date Kentrell Dhailwal II, MD PCP - General Family Medicine 08/18/20 Urban Forester Relationship Specialty Start Date End Date Kentrell Dhaliwal II, MD PCP - General Family Medicine 08/18/20 Urban Forester Relationship Specialty Start Date End Date Kentrell Dhaliwal II, MD PCP - General Family Medicine 08/18/20 Urban Forester Relationship Specialty Start Date End Date Kentrell Dhaliwal II, MD PCP - General Family Medicine 08/18/20 Urban Forester Relationship Specialty Start Date End Date Kentrell Dhaliwal II, MD PCP - General Family Medicine 08/18/20 Urban Forester Relationship Specialty Start Date End Date Kentrell Dhaliwal II, MD PCP - General Family Medicine 08/18/20 Urban Forester Relationship Specialty Start Date End Date Kentrell Dhaliwal II, MD PCP - General Family Medicine 08/18/20 Team Status: Active Member Role/Relationship Status Dates Dr. Kentrell Dhaliwal MD Primary Care Provider Active Team Status: Active Member Role/Relationship Status Dates Dr. Kentrell Dhaliwal MD Primary Care Provider Active Start: April 12, 2025 Jay Williamson MD Emergency Provider Active Star t: April 12, 2025 Dr. Mike Queen DO Attending Provider Active Start: April 12, 2025 Team Status: Active Member Role/Relationship Status Dates Dr. Kentrell Dhaliwal MD Primary Care Provider Active Start: April 12, 2025 Jay Williamson MD Emergency Provider Active Star t: April 12, 2025 Dr. Mike Queen DO Admit Provider Active Star t: April 12, 2025 Dr. Mike Queen DO Attending Provider Active Start: April 12, 2025 Reason for Visit (unrecogniz ed section and [...] 05/18/2022 Reason Comments Transition Of Care [facility] Admitted on 04/18 for Syncope R/T Polypharmacy, nausea and vomiting Urinary Problem Patient thinks she s till has UTI Reason Onset Date Comments Refill Request 06/06/2022 Reason Comments Patient Update Medication Problem Reason Onset Date Comments Transition Of Care 07/18/2022 GLENNY D/C [facility] 07/17/22 UTI, Partial bowel obstruction Reason Comments [...] 04/11/2023 Reason Comments Transition Of Care [facility] admit betsy on 04/01/2023 for SBO UTI [...] Service Pr ogress NotePATIENT NAME: Adina EscobarMRN: [id number] OF SERVICE: July 21, 2022TIME: 3:38 PMPATIENT [...] EXAM ABDOMEN 2 [place] [address] [place] [address] [place] [address] Referral ID Status Reason Start Date Expiration Date V isits Requested Visits Authorized [id number] Closed Auto-Generate d Referral 07/21/2022 08/20/2023 1 1 Reason Comments Follow Up 3 month follow up. P t states that she is having breathing issues. Using all of her inhalers. Pt stated that the time is coming that she will need to go to the long term. Pt needing refills. Pt would like to [...] Date Comments Population Health Navigation Outreach 03/13/2025 [facility] [employer] Reason Comments Palpitations Patient stated [...] section and content) DATE CREATED AUTHOR 02/22/2022 [facility] Ifeoma Rogers DATE CREATED AUTHOR AUTHOR'S ORGANIZ ATION 03/07/2022 [facility] DATE CREATED AUTHOR AUTHOR'S ORGANIZ ATION 03/17/2023 [facility] DATE CREATED AUTHOR AUTHOR'S ORGANIZ ATION 04/03/2025 [facility] DATE CREATED AUTHOR AUTHOR'S ORGANIZ ATION 04/04/2025 [facility] DATE CREATED AUTHOR AUTHOR'S ORGANIZ ATION 04/12/2025 [facility] Goals (unrecognized section and content) Goals may [...] BE BASED ON THE PRIMARY CLINICAL RECORDS. [facility] [employer] [facility]. provides no warranty or guarantee of the accuracy or completeness of information in this document.
[2025-04-12] MEDS: 0.9% Normal Saline (1000mL) 1,000 ML 150 ML IV (21:47)
[2025-04-12] MEDS: buPROPion (XL) 150 MG TABLET.XL PO (22:11)
[2025-04-12 22:52] LABS: Prothrombin Time (Protime)PT. 14.0 SECONDS (11.7-14.9)
[2025-04-13] VITALS (7 sets, daily range): BP systolic 106–121; BP diastolic 55–63; PULSE 59–72; RESP 16; TEMP 36.6–36.9; O2SAT 96–98
[2025-04-13] MEDS: 0.9% Normal Saline (1000mL) 1,000 ML 150 ML IV (04:13)
[2025-04-13] MEDS: Budesonide Respules 0.5 MG/2 ML AMPUL.NEB. INHALATION ×2 (06:21→19:30)
[2025-04-13 06:34] LABS: Prothrombin Time (Protime)PT. 14.6 SECONDS (11.7-14.9)
[2025-04-13 06:48] LABS: Anion Gap 10 (5-15); BUN 12 mg/dL (4-19); BUN/Creat Ratio 9.6 RATIO (10-20); Calcium,Total 8.0 mg/dL (7.6-11.0); Carbon Dioxide 19.9 mmol/L (21.0-32.0); Chloride 110 mmol/L (98-108); Estimated Creatinine Clearance 34.88 ml/min (50-250); Glucose 81 mg/dL (70-99); Potassium 3.9 mmol/L (3.3-5.1)
--- NOTE | 2025-04-13 07:57 | PN.HOSP_ITS ---
Subjective Subjective Still with some generalized abdominal pain. No bowel movement or flatus today Objective Data Objective Data Vital Signs: Vital Signs Temp Pulse Resp BP Pulse Ox O2 Del Method 98.0 F 63 16 111/55 L 96 Room Air 04/13/25 03:00 04/13/25 06:22 04/13/25 06:22 04/13/25 03:00 04/13/25 06:22 04/13/25 06:22 Oxygen Delivery Method Room Air Weight: 145 lb 11.609 oz Body Mass Index (BMI) 27.5 Intake & Output: Intake and Output for Last 24 Hours 04/12/25 04/13/25 04/14/25 03:59 03:59 03:59 Intake Total 1100 / 1100 1515 / 1515 Balance 1100 / 1100 1515 / 1515 Lab / Micro Data 04/12/25 17:20 04/13/25 05:48 Labs: Laboratory Results - last 24 hr 04/12/25 17:20: WBC 8.7, RBC 3.79 L, Hgb 11.4 L, Hct 33.5 L, MCV 88.4, MCH 30.1, MCHC 34.0, RDW Std Deviation 45.3 H, RDW Coeff of Neno 14.0, Plt Count 287, MPV 9.7, Immature Gran % (Auto) 0.600, Neut % (Auto) 57.6, Lymph % (Auto) 33.1, [place] % (Auto) 7.2, Eos % (Auto) 0.9, Baso % (Auto) 0.6, Absolute Neuts (auto) 5.0, Absolute Lymphs (auto) 2.88, Nucleated RBC % 0, Sodium 139, Potassium 4.1, Chloride 105, Carbon Dioxide 20.7 L, Anion Gap 13, BUN 15, Creatinine 1.30 H, E stim Creat Clear Calc 34.34 L, Est GFR (MDRD) Non-Af 43 L, BUN/Creatinine Ratio 11.2, Glucose 89, Calcium 9.4, Total Bilirubin 0.76, AST 37 H, ALT 23, Alkaline Phosphatase 78, Total Protein 6.9, Albumin 4.1, Globulin 2.8, Albumin/Globulin Ratio 1.4, Lipase 31 04/12/25 22:19: PT 14.0, INR 1.1 04/13/25 05:48: PT 14.6, INR 1.1, Sodium 140, Potassium 3.9, Chloride 110 H, C arbon Dioxide 19.9 L, Anion Gap 10, BUN 12, Creatinine 1.25 H, Estim Creat Clear Calc 34.88 L, Est GFR (MDRD) Non-Af 46 L, BUN/Creatinine Ratio 9.6 L, Glucose 81, Calcium 8.0 Radiography Diagnostic Testing: Radiology Impression Abdomen/Pelvis CT 04/12/25 17:18 IMPRESSION: Similar appearance of small bowel centrally when compared to the prior study with mild segmental dilatation. No significant obstruction proximally. Reading Location: [facility] Physical Exam Narrative General: Alert, Oriented x3, Cooperative, No apparent distress HEENT: Atraumatic, PERRLA, EOMI, Normocephalic Oral: Moist Mucosa Neck: Supple, No JVD Lungs: Diminished, Normal air movement, No rhonchi, No wheeze, No rales Cardiovascular: Regular rate, Regular Rhythm, Normal S1, Normal S2, No murmurs Abdomen: Soft, mildly tender, Non-Distended, No Hepato-splenomegaly Extremities: No edema, Capillary Refill Less than 3 Seconds Skin: No rashes, No breakdown Musculoskeletal: No Tenderness to Palpation of Joints or Extremities Neurological: No focal neurological deficits, moves all extremities, sensation intact Psych/Mental Status: Normal Affect, Appropriate Assessment & Plan Assessment/Plan (1) Abdominal pain: QUALIFIERS: Abdominal location: generalized Qualified Code(s): R 10.84 - Generalized abdominal pain PLAN: Plan 1. Ileus versus small bowel obstruction ? She has had multiple abdominal surgeries in the past ? Continue with IV fluids, encourage ambulation ? Continue with Reglan and her PPI ? She is on nabumetone for chronic pain, which can cause constipation 2. Hypothyroidism ? Stable ? Continue with Synthroid 3. GERD ? Stable ? Continue with PPI 4. Anxiety/depression/chronic pain ? Stable ? Continue with her home medications 5. History of DVT ? This is not an acute or recent DVT therefore we will just continue with her Coumadin DVT: Coumadin Charges/Coding Visit Charges Inpatient E&M: 06812 Subs Hosp L2
[2025-04-13] MEDS: buPROPion (XL) 150 MG TABLET.XL PO ×2 (08:03→21:12)
--- NOTE | 2025-04-13 08:45 | CASEMGMT ---
Dx:ileus LACE:2 6-Clicks:24 Medical record reviewed and patient evaluated for identification of discharge planning needs. Based on this review, at this time criteria are not present to indicate a need for discharge planning. Will remain available to assist with discharge planning needs as identified or requested.
[2025-04-13] MEDS: 0.9% Saline Lock 10 ML Syringe IV ×2 (20:58→21:08)
[2025-04-14] VITALS (8 sets, daily range): BP systolic 117–149; BP diastolic 64–80; PULSE 63–73; RESP 16–18; TEMP 36.5–37.1; O2SAT 95–100
[2025-04-14] MEDS: 0.9% Saline Lock 10 ML Syringe IV ×5 (00:26→17:33)
[2025-04-14 06:26] LABS: Hematocrit 28.0 % (37-47); Hemoglobin 9.2 g/dL (12.0-15.0); Immature Granulocytes Count 0.030 X10^3/uL (0.0-0.0); Mean Corp Hgb Conc 32.9 g/dL (32-36); Mean Corpuscular Volume 91.2 fL (81-99); Mean Platelet Vol. 10.2 fl (6.2-12.0); NRBC Flagged by Analyzer 0 % (0-5); Platelet Count 214 K/mm3 (150-450); RBC Distribution Width CV 14.7 % (11.6-14.6); RBC Distribution Width SD 49.3 fl (35.1-43.9); Red Blood Count 3.07 M/mm3 (4.2-5.4); White Blood Count 7.9 K/mm3 (4.4-11.0)
[2025-04-14 06:58] LABS: Prothrombin Time (Protime)PT. 14.2 SECONDS (11.7-14.9)
[2025-04-14 07:10] LABS: Anion Gap 11 (5-15); BUN 6 mg/dL (4-19); BUN/Creat Ratio 5.3 RATIO (10-20); Calcium,Total 8.1 mg/dL (7.6-11.0); Carbon Dioxide 17.2 mmol/L (21.0-32.0); Chloride 111 mmol/L (98-108); Estimated Creatinine Clearance 38.24 ml/min (50-250); Glucose 101 mg/dL (70-99); Potassium 3.9 mmol/L (3.3-5.1)
[2025-04-14] MEDS: Budesonide Respules 0.5 MG/2 ML AMPUL.NEB. INHALATION ×2 (07:34→19:43)
--- NOTE | 2025-04-14 08:14 | PCM.PN.HOSP ---
Subjective Subjective Feels a bit better today, less bloating and decreased abdominal pain still no bowel movement or flatus Objective Data Objective Data Vital Signs: Vital Signs Temp Pulse Resp BP Pulse Ox O2 Del Method 98.7 F 72 17 123/80 H 97 Room Air 04/14/25 08:02 04/14/25 08:02 04/14/25 08:02 04/14/25 08:02 04/14/25 08:02 04/14/25 08:02 Oxygen Delivery Method Room Air Weight: 145 lb 11.609 oz Body Mass Index (BMI) 27.5 Intake & Output: Intake and Output for Last 24 Hours 04/13/25 04/14/25 04/15/25 03:59 03:59 03:59 Intake Total 1100 / 1100 2165 / 2165 300 / 300 Balance 1100 / 1100 2165 / 2165 300 / 300 Lab / Micro Data 04/14/25 05:46 04/14/25 05:46 Labs: Laboratory Results - last 24 hr 04/14/25 05:46: WBC 7.9, RBC 3.07 L, Hgb 9.2 L, Hct 28.0 L, MCV 91.2, MCH 30.0, MCHC 32.9, RDW Std Deviation 49.3 H, RDW Coeff of Neno 14.7 H, Plt Count 214, MPV 10.2, Immature Gran % (Auto) 0.400, Neut % (Auto) 66.6, Lymph % (Auto) 21.7, [place] % (Auto) 8.7, Eos % (Auto) 2.1, Baso % (Auto) 0.5, Absolute Neuts (auto) 5.3, Absolute Lymphs (auto) 1.72, Nucleated RBC % 0, PT 14.2, INR 1.1, Sodium 140, Potassium 3.9, Chloride 111 H, Carbon Dioxide 17.2 L, Anion Gap 11, BUN 6, Creatinine 1.14, Estim Creat Clear Calc 38.24 L, Est GFR (MDRD) Non-Af 51 L, BUN/Creatinine Ratio 5.3 L, Glucose 101 H, Calcium 8.1 Physical Exam Narrative General: Alert, Oriented x3, Cooperative, No apparent distress HEENT: Atraumatic, PERRLA, EOMI, Normocephalic Oral: Moist Mucosa Neck: Supple, No JVD Lungs: Diminished, Normal air movement, No rhonchi, No wheeze, No rales Cardiovascular: Regular rate, Regular Rhythm, Normal S1, Normal S2, No murmurs Abdomen: Soft, mildly tender, Non-Distended, No Hepato-splenomegaly Extremities: No edema, Capillary Refill Less than 3 Seconds Skin: No rashes, No breakdown Musculoskeletal: No Tenderness to Palpation of Joints or Extremities Neurological: No focal neurological deficits, moves all extremities, sensation intact Psych/Mental Status: Normal Affect, Appropriate Assessment & Plan Assessment/Plan (1) Abdominal pain: QUALIFIERS: Abdominal location: generalized Qualified Code(s): R10.84 - Generalized abdominal pain PLAN: Plan 1. Ileus versus small bowel obstruction ? She has had multiple abdominal surgeries in the past ? Continue with IV fluids, encourage ambulation ? Continue with Reglan and her PPI ? She is on nabumetone for chronic pain, which can cause constipation ? Will just maintain on clears, if no improvement by tomorrow can repeat KUB 2. Hypothyroidism ? Stable ? Continue with Synthroid 3. GERD ? Stable ? Continue with PPI 4. Anxiety/depression/chronic pain ? Stable ? Continue with her home medications 5. History of DVT ? This is not an acute or recent DVT therefore we will just continue with her Coumadin DVT: Coumadin Charges/Coding Visit Charges Inpatient E&M: 27723 Subs Hosp L2
[2025-04-14] MEDS: buPROPion (XL) 150 MG TABLET.XL PO ×2 (09:17→21:27)
[2025-04-15] VITALS (8 sets, daily range): BP systolic 135–154; BP diastolic 67–95; PULSE 65–78; RESP 14–19; TEMP 36.4–36.6; O2SAT 98–100
[2025-04-15] MEDS: 0.9% Normal Saline (1000mL) 1,000 ML 70 ML IV
[2025-04-15] MEDS: 0.9% Saline Lock 10 ML Syringe IV ×6 (04:20→18:03)
--- NOTE | 2025-04-15 06:00 | RAD_ITS ---
PROCEDURE: ABDOMEN SINGLE VIEW (PORTABLE) 04/15/2025 REASON FOR EXAM: ILEUS VS SBO TECHNIQUE: ABDOMEN SINGLE VIEW (PORTABLE) COMPARISON: April 12, 2025 CT FINDINGS: There is gas and stool in the colon with a moderate stool load. There is a loop of small bowel in the left upper quadrant measuring 2.8 cm in diameter which may represent a focal ileus. There is no air-fluid level. There is no visible pathologic calcification or acute bony abnormality. Dextrocurvature of the lumbar region is noted. RAD/Abdomen Single View (Portable) IMPRESSION: There is gas and stool in the colon with a moderate stool load. There is a loop of small bowel in the left upper quadrant measuring 2.8 cm in d iameter which may represent a focal ileus. Reading Location: [facility]
[2025-04-15 06:28] LABS: Hematocrit 33.6 % (37-47); Hemoglobin 10.8 g/dL (12.0-15.0); Immature Granulocytes Count 0.040 X10^3/uL (0.0-0.0); Mean Corp Hgb Conc 32.1 g/dL (32-36); Mean Corpuscular Volume 93.6 fL (81-99); Mean Platelet Vol. 10.2 fl (6.2-12.0); NRBC Flagged by Analyzer 0 % (0-5); Platelet Count 192 K/mm3 (150-450); RBC Distribution Width CV 15.2 % (11.6-14.6); RBC Distribution Width SD 52.8 fl (35.1-43.9); Red Blood Count 3.59 M/mm3 (4.2-5.4); White Blood Count 8.6 K/mm3 (4.4-11.0)
[2025-04-15] MEDS: Budesonide Respules 0.5 MG/2 ML AMPUL.NEB. INHALATION ×2 (06:44→19:21)
[2025-04-15 06:55] LABS: Anion Gap 12 (5-15); BUN 5 mg/dL (4-19); BUN/Creat Ratio 4.3 RATIO (10-20); Calcium,Total 8.6 mg/dL (7.6-11.0); Carbon Dioxide 18.6 mmol/L (21.0-32.0); Chloride 110 mmol/L (98-108); Estimated Creatinine Clearance 40.37 ml/min (50-250); Glucose 82 mg/dL (70-99); Potassium 3.7 mmol/L (3.3-5.1)
--- NOTE | 2025-04-15 08:59 | PCM.PN.HOSP ---
Subjective Subjective Had some flatus today but no BM. Still little bit of abdominal discomfort Objective Data Objective Data Vital Signs: Vital Signs Temp Pulse Resp BP Pulse Ox O2 Del Method 97.6 F L 77 19 H 143/95 H 98 Room Air 04/15/25 08:04 04/15/25 08:04 04/15/25 08:04 04/15/25 08:04 04/15/25 08:04 04/15/25 08:05 Oxygen Delivery Method Room Air Weight: 145 lb 11.609 oz Body Mass Index (BMI) 27.5 Intake & Output: Intake and Output for Last 24 Hours 04/14/25 04/15/25 04/16/25 03:59 03:59 03:59 Intake Total 2165 / 2165 300 / 300 Balance 2165 / 2165 300 / 300 Lab / Micro Data 04/15/25 06:16 04/15/25 06:16 Labs: Laboratory Results - last 24 hr 04/15/25 06:16: WBC 8.6, RBC 3.59 L, Hgb 10.8 L, Hct 33.6 L, MCV 93.6, MCH 30.1, MCHC 32.1, RDW Std Deviation 52.8 H, RDW Coeff of Neno 15.2 H, Plt Count 192, MPV 10.2, Immature Gran % (Auto) 0.500, Neut % (Auto) 58.7, Lymph % (Auto) 27.8, [place] % (Auto) 8.0, Eos % (Auto) 4.4, Baso % (Auto) 0.6, Absolute Neuts (auto) 5.0, Absolute Lymphs (auto) 2.39, Nucleated RBC % 0, Sodium 140, Potassium 3.7, Chloride 110 H, Carbon Dioxide 18.6 L, Anion Gap 12, BUN 5, Creatinine 1.08, Estim Creat Clear Calc 40.37 L, Est GFR (MDRD) Non-Af 54 L, BUN/Creatinine Ratio 4.3 L, Glucose 82, Calcium 8.6 Radiography Diagnostic Testing: Radiology Impression KUB X-Ray 04/15/25 06:00 IMPRESSION: There is gas and stool in the colon with a moderate stool load. There is a loop of small bowel in the left upper quadrant measuring 2.8 cm in diameter which may represent a focal ileus. Reading [facility] Physical Exam Narrative General: Alert, Oriented x3, Cooperative, No apparent distress HEENT: Atraumatic, PERRLA, EOMI, Normocephalic Oral: Moist Mucosa Neck: Supple, No JVD Lungs: Diminished, Normal air movement, No rhonchi, No wheeze, No rales Cardiovascular: Regular rate, Regular Rhythm, Normal S1, Normal S2, No murmurs Abdomen: Soft, mildly tender, Non-Distended, No Hepato-splenomegaly Extremities: No edema, Capillary Refill Less than 3 Seconds Skin: No rashes, No breakdown Musculoskeletal: No Tenderness to Palpation of Joints or Extremities Neurological: No focal neurological deficits, moves all extremities, sensation intact Psych/Mental Status: Normal Affect, Appropriate Assessment & Plan Assessment/Plan (1) Abdominal pain: QUALIFIERS: Abdominal location: generalized Qualified Code(s): R10.84 - Generalized abdominal pain PLAN: Plan 1. Ileus versus small bowel obstruction ? She has had multiple abdominal surgeries in the past ? Continue with IV fluids, encourage ambulation ? Continue with Reglan and her PPI ? She is on nabumetone for chronic pain, which can cause constipation ?KUB with signs of ileus with no transition point or air-fluid levels, currently n.p.o. given her slight increase in pain yesterday 2. Hypothyroidism ? Stable ? Continue with Synthroid 3. GERD ? Stable ? Continue with PPI 4. Anxiety/depression/chronic pain ? Stable ? Continue with her home medications 5. History of DVT ? This is not an acute or recent DVT therefore we will just continue with her Coumadin ? I discussed the risks with her and she agreed with course DVT: Coumadin Charges/Coding Visit Charges Inpatient E&M: 89828 Subs Hosp L2
[2025-04-15] MEDS: buPROPion (XL) 150 MG TABLET.XL PO ×2 (09:22→22:10)
[2025-04-15 11:13] LABS: Prothrombin Time (Protime)PT. 17.3 SECONDS (11.7-14.9)
[2025-04-15] MEDS: 0.9% Normal Saline (1000mL) 1,000 ML 75 ML IV (14:54)
[2025-04-16 03:03] VITALS: BP 149/66; PULSE 71; RESP 16; TEMP 36.6; O2SAT 97
[2025-04-16] MEDS: 0.9% Normal Saline (1000mL) 1,000 ML 75 ML IV ×2 (04:26→16:38)
[2025-04-16 06:19] LABS: Hematocrit 27.6 % (37-47); Hemoglobin 9.4 g/dL (12.0-15.0); Immature Granulocytes Count 0.030 X10^3/uL (0.0-0.0); Mean Corp Hgb Conc 34.1 g/dL (32-36); Mean Corpuscular Volume 91.1 fL (81-99); Mean Platelet Vol. 10.7 fl (6.2-12.0); NRBC Flagged by Analyzer 0 % (0-5); Platelet Count 215 K/mm3 (150-450); RBC Distribution Width CV 15.3 % (11.6-14.6); RBC Distribution Width SD 51.1 fl (35.1-43.9); Red Blood Count 3.03 M/mm3 (4.2-5.4); White Blood Count 5.9 K/mm3 (4.4-11.0)
[2025-04-16 06:50] LABS: Anion Gap 12 (5-15); BUN 5 mg/dL (4-19); BUN/Creat Ratio 5.1 RATIO (10-20); Calcium,Total 8.3 mg/dL (7.6-11.0); Carbon Dioxide 17.9 mmol/L (21.0-32.0); Chloride 111 mmol/L (98-108); Estimated Creatinine Clearance 41.52 ml/min (50-250); Glucose 74 mg/dL (70-99); Potassium 3.7 mmol/L (3.3-5.1)
[2025-04-16 06:55] LABS: Prothrombin Time (Protime)PT. 21.0 SECONDS (11.7-14.9)
[2025-04-16] MEDS: 0.9% Saline Lock 10 ML Syringe IV (07:55)
--- NOTE | 2025-04-16 08:31 | PN.HOSP_ITS ---
Subjective Subjective No BM or flatus today, and still feels a little bit tense in her abdomen. Will proceed with a small bowel follow-through and consult with general surgery Objective Data Objective Data Vital Signs: Vital Signs Temp Pulse Resp BP Pulse Ox O2 Del Method 97.8 F 71 16 149/66 H 97 Room Air 04/16/25 03:03 04/16/25 03:03 04/16/25 03:03 04/16/25 03:03 04/16/25 03:03 04/16/25 07:35 Oxygen Delivery Method Room Air Weight: 145 lb 11.609 oz Body Mass Index (BMI) 27.5 Intake & Output: Intake and Output for Last 24 Hours 04/15/25 04/16/25 04/17/25 03:59 03:59 03:59 Intake Total 300 / 300 1000 / 1000 1000 / 1000 Balance 300 / 300 1000 / 1000 1000 / 1000 Lab / Micro Data 04/16/25 05:20 04/16/25 05:20 Labs: Laboratory Results - last 24 hr 04/15/25 10:50: PT 17.3 H, INR 1.4 04/16/25 05:20: WBC 5.9, RBC 3.03 L, Hgb 9.4 L, Hct 27.6 L, MCV 91.1, MCH 31.0, MCHC 34.1 D, RDW Std Deviation 51.1 H, RDW Coeff of Neno 15.3 H, Plt Count 215, MPV 10.7, Immature Gran % (Auto) 0.500, Neut % (Auto) 48.5, Lymph % (Auto) 35.8, [place] % (Auto) 8.8, Eos % (Auto) 5.7 H, Baso % (Auto) 0.7, Absolute Neuts (auto) 2.9, Absolute Lymphs (auto) 2.12, Nucleated RBC % 0, PT 21.0 H, INR 1.8, Sodium 141, Potassium 3.7, Chloride 111 H, Carbon Dioxide 17.9 L, Anion Gap 12, BUN 5, Creatinine 1.05, Estim Creat Clear Calc 41.52 L, Est GFR (MDRD) Non-Af 56 L, B UN/Creatinine Ratio 5.1 L, Glucose 74, Calcium 8.3 Physical Exam Narrative General: Alert, Oriented x3, Cooperative, No apparent distress HEENT: Atraumatic, PERRLA, EOMI, Normocephalic Oral: Moist Mucosa Neck: Supple, No JVD Lungs: Diminished, Normal air movement, No rhonchi, No wheeze, No rales Cardiovascular: Regular rate, Regular Rhythm, Normal S1, Normal S2, No murmurs Abdomen: Soft, mildly tender, Non-Distended, No Hepato-splenomegaly Extremities: No edema, Capillary Refill Less than 3 Seconds Skin: No rashes, No breakdown Musculoskeletal: No Tenderness to Palpation of Joints or Extremities Neurological: No focal neurological deficits, moves all extremities, sensation intact Psych/Mental Status: Normal Affect, Appropriate Assessment & Plan Assessment/Plan (1) Abdominal pain: QUALIFIERS: Abdominal location: generalized Qualified Code(s): R 10.84 - Generalized abdominal pain PLAN: Plan 1. Ileus versus small bowel obstruction ? She has had multiple abdominal surgeries in the past ? Continue with IV fluids, encourage ambulation ?Continue with her PPI, will discontinue Reglan ? Consult general surgery ? She is on nabumetone for chronic pain, which can cause constipation ?KUB with signs of ileus with no transition point or air-fluid levels, currently n.p.o., given her continued slow recovery we will do a small bowel follow- through with Gastrografin 2. Hypothyroidism ? Stable ? Continue with Synthroid 3. GERD ? Stable ? Continue with PPI 4. Anxiety/depression/chronic pain ? Stable ? Continue with her home medications 5. History of DVT ? This is not an acute or recent DVT therefore we will just continue with her Coumadin ? I discussed the risks with her and she agreed with course DVT: Coumadin Charges/Coding Visit Charges Inpatient E&M: 70391 Subs Hosp L2
--- NOTE | 2025-04-16 08:55 | RAD_ITS ---
EXAM: SMALL-BOWEL SERIES CLINICAL HISTORY: CONCERN FOR SMALL BOWEL OBSTRUCTION OR ILEUS COMPARISON: ABDOMEN STUDY OF 04/15/2025. TECHNIQUE: SMALL BOWEL SERIES. RAD/Small Bowel Series Only IMPRESSION: GASTROESOPHAGEAL REFLUX IS PARTIALLY VISUALIZED ON THE IMMEDIATE FILM. Immediate and 1 hour 20 minute films are presented, as well as a standards analyst image. Satisfactory passage of contrast to the colon is seen by the 1 hour 20 minute f ilm, including through to the rectum. No evidence of small-bowel obstruction or substantial degree of adynamic ileus. Reading Location: [place] [id number]
--- NOTE | 2025-04-16 08:56 | EX.PCM.CON.S ---
Assessment & Plan Assessment/Plan (1) Intractable abdominal pain: (2) Nausea & vomiting: QUALIFIERS: Vomiting type: unspecified Qualified Code(s): R11.2 - Nausea with vomiting, unspecified PLAN: Plan I have been consulted in conjunction with Dr. Lennon. She will independently evaluate this patient. Patient is a 74 y/o F who presented with 1 weeks worth of abdominal pain with associated nausea. CT scan demonstrated mild dilatation of the small bowel. NO obstruction. Patient continued to note distention during her hospitalization and our service was contacted. A small bowel follow-through was obtained and contrast was noted within the rectum in 1 hour and 20 minutes. She had activity had a bowel movement while waiting on her 2nd abdominal x-ray. Result from the small bowel follow-through demonstrated no evidence of small-bowel obstruction or degree of ileus. We will plan to start the patient on full liquids and advance to transitional diet as tolerated. Plan for patient to return to her cautious typical diet and lower in fiber. No surgical intervention is being recommended. Patient has had the opportunity to ask and have questions answered. Patient verbally understands and agrees with the plan. Thank you for allowing us to participate in this patient's care. We will plan to sign off at this time. Please reach out if our service is needed in the future. HPI Consult Data Date of Consult: 04/16/25 HPI Narrative Reason for Consultation: Ileus with abdominal distention HPI Narrative: KAITLYN BAIRD, is a 74 F who presents with a 1 week history of abdominal distention and nausea. Patient notes a recurrent history of small bowel obstructions. She has an extensive abdominal surgical history of 6 surgeries including her most recent in [place], where they took 40% of her small bowel secondary to a small bowel obstruction. Patient states she is typically cautious on what she eats, however last Sunday she ate a cheeseburger from [employer]. She was told not to eat meat. She notes attempting to use Miralax daily with little success. She also notes approximately 6 weeks ago she had black tarry stools for 3 days and then it resolved. She notes she is still feeling distended and with some nausea. CT scan demonstrated: IMPRESSION: Similar appearance of small bowel centrally when compared to the prior study with mild segmental dilatation. No significant obstruction proximally. [facility] Medical History Irritable bowel Scarlet fever Depression Hyperthyroidism DVT (deep venous thrombosis) CKD (chronic kidney disease), stage III Chronic anemia History of venous thromboembolism History of small bowel obstruction GERD (gastroesophageal reflux disease) HLD (hyperlipidemia) Anxiety and depression Hypothyroidism Home Medications ?Medication ?Instructions ?Recorded ?Last Taken ?Type alprazolam 1 mg tablet (Xanax) 1 mg PO BID anxiety 12/11/22 Unknown History bupropion HCl 150 mg 24 hr tablet, 150 mg PO BID mental health 12/11/22 Unknown History extended release esomeprazole magnesium 20 mg 20 mg PO DAILY reflux 12/11/22 Unknown History capsule,delayed release ezetimibe 10 mg tablet 10 mg PO DAILY cholesterol 12/11/22 Unknown History levothyroxine 50 mcg tablet 50 mcg PO DAILY thyroid 12/11/22 Unknown History zolpidem 10 mg tablet (Ambien) 10 mg PO QHS sleep 12/11/22 Unknown History docusate sodium 100 mg capsule 100 mg PO BID stool softner 03/31/23 Unknown History budesonide 160 mcg-glycopyr 9 2 inh inhalation BID PRN breathing 12/06/23 Unknown History mcg-formot 4.8 mcg/actuation HFA inhaler (Breztri Aerosphere) buspirone 15 mg tablet 15 mg PO BID mental health 12/06/23 Unknown History polyethylene glycol 3350 17 17 g PO BID bowels 12/06/23 Unknown History gram/dose oral powder (Miralax) ropinirole 0.5 mg tablet 0.5 mg PO BID PRN restless legs 12/06/23 Unknown History warfarin 5 mg tablet 5 mg PO DAILY blood thinner 12/06/23 Unknown History ondansetron HCl 4 mg tablet 4 mg PO Q6H PRN Nausea #10 tabs 12/13/23 Unknown Rx furosemide 20 mg tablet 10 mg PO DAILY 09/14/24 Unknown History tramadol 50 mg tablet 50 mg PO Q6H PRN PRN pain 09/14/24 Unknown History albuterol sulfate 90 mcg/actuation 2 puff inhalation Q6H PRN PRN 04/12/25 Unknown History aerosol inhaler wheezing nabumetone 750 mg tablet 750 mg PO Q12H PRN PRN pain 04/12/25 Unknown History Allergy/AdvReac Type Severity Reaction Status Date / Time cefdinir (From [employer]) Allergy Hives Verified 09/13/24 20:52 codeine Allergy NEEDS Verified 09/13/24 20:52 FOLLOW-UP latex Allergy Anaphylaxis Verified 09/13/24 20:52 prochlorperazine (From Allergy NEEDS Verified 09/13/24 20:52 Compazine) FOLLOW-UP shellfish derived Allergy Anaphylaxis Verified 09/13/24 20:52 levofloxacin (From Levaquin) AdvReac Vomiting Verified 09/13/24 20:52 Oxvwcff-[id number] Reductase AdvReac NEEDS Verified 09/13/24 20:52 Inhibitor FOLLOW-UP Family History Mother Heart disease COPD (chronic obstructive pulmonary disease) Father Heart disease Hypertension CAD (coronary artery disease) Myocardial infarction Surgical History History of total abdominal hysterectomy History of colon surgery History of appendectomy History of cholecystectomy Social History household members: none Smoking Status: Never smoker alcohol intake: never substance use type: does not use ROS Constitutional Constitutional: Reports systems reviewed and no addt'l complaints, except as documented Eyes Eyes: Reports systems reviewed and no addt'l complaints, except as documented ENT HEENT: Reports systems reviewed and no addt'l complaints, except as documented Cardiovascular Cardiovascular: Reports systems reviewed and no addt'l complaints, except as documented Respiratory/Chest Respiratory/Chest: Reports systems reviewed and no addt'l complaints, except as documented Gastrointestinal Gastrointestinal: Reports systems reviewed and no addt'l complaints, except as documented Genitourinary Genitourinary: Reports systems reviewed and no addt'l complaints, except as documented Musculoskeletal Musculoskeletal: Reports systems reviewed and no addt'l complaints, except as documented Integumentary Integumentary: Reports systems reviewed and no addt'l complaints, except as documented Neurologic Neurologic: Reports systems reviewed and no addt'l complaints, except as documented Psychiatric Psychiatric: Reports systems reviewed and no addt'l complaints, except as documented Endocrine Endocrinology: Reports systems reviewed and no addt'l complaints, except as documented Hematologic/Lymphatic Hematologic/Lymphatic: Reports systems reviewed and no addt'l complaints, except as documented Allergic/Immunologic Allergic/Immunologic: Reports systems reviewed and no addt'l complaints, except as documented Physical Exam Const alert, oriented x3 and no apparent distress HEENT normocephalic and head/scalp atraumatic Eyes PERRL Neck full ROM Lymph Lymphatic: no lymphadenopathy noted Resp normal respiratory effort and clear to auscultation bilaterally Cardio regular rate and regular rhythm GI GI Narrative: Abdomen- soft, obese. Tenderness to lower abdomen with palpation. Positive bowel sounds. no CVA tenderness Back/Spine no CVA tenderness Extremity normal to inspection Skin no rashes or lesions noted Neuro no focal motor deficits and no sensory deficits noted Psych mental status grossly normal, thought process normal and cooperative Lab / Micro Data 04/16/25 05:20 04/16/25 05:20 Labs: Laboratory Results - last 24 hr 04/15/25 10:50: PT 17.3 H, INR 1.4 04/16/25 05:20: WBC 5.9, RBC 3.03 L, Hgb 9.4 L, Hct 27.6 L, MCV 91.1, MCH 31.0, MCHC 34.1 D, RDW Std Deviation 51.1 H, RDW Coeff of Neno 15.3 H, Plt Count 215, MPV 10.7, Immature Gran % (Auto) 0.500, Neut % (Auto) 48.5, Lymph % (Auto) 35.8, [place] % (Auto) 8.8, Eos % (Auto) 5.7 H, Baso % (Auto) 0.7, Absolute Neuts (auto) 2.9, Absolute Lymphs (auto) 2.12, Nucleated RBC % 0, PT 21.0 H, INR 1.8, Sodium 141, Potassium 3.7, Chloride 111 H, Carbon Dioxide 17.9 L, Anion Gap 12, BUN 5, Creatinine 1.05, Estim Creat Clear Calc 41.52 L, Est GFR (MDRD) Non-Af 56 L, BUN/Creatinine Ratio 5.1 L, Glucose 74, Calcium 8.3 Charges/Coding Visit Charges Inpatient E&M: 92886 Init Hosp L2
[2025-04-16 09:00] VITALS: BP 155/81; PULSE 70; RESP 18; TEMP 36.1; O2SAT 100
[2025-04-16] MEDS: buPROPion (XL) 150 MG TABLET.XL PO ×2 (09:17→21:44)
[2025-04-16 13:25] VITALS: PULSE 77; RESP 18
[2025-04-16 14:57] VITALS: BP 148/69; PULSE 72; RESP 18; TEMP 36.5; O2SAT 100
[2025-04-16 19:54] VITALS: BP 140/57; PULSE 75; RESP 16; TEMP 36.9; O2SAT 100
[2025-04-17 03:10] VITALS: BP 140/59; PULSE 72; RESP 16; TEMP 36.8; O2SAT 96
[2025-04-17 05:37] LABS: Hematocrit 28.2 % (37-47); Hemoglobin 9.5 g/dL (12.0-15.0); Immature Granulocytes Count 0.020 X10^3/uL (0.0-0.0); Mean Corp Hgb Conc 33.7 g/dL (32-36); Mean Corpuscular Volume 90.4 fL (81-99); Mean Platelet Vol. 10.6 fl (6.2-12.0); NRBC Flagged by Analyzer 0 % (0-5); Platelet Count 217 K/mm3 (150-450); RBC Distribution Width CV 15.3 % (11.6-14.6); RBC Distribution Width SD 50.3 fl (35.1-43.9); Red Blood Count 3.12 M/mm3 (4.2-5.4); White Blood Count 6.3 K/mm3 (4.4-11.0)
[2025-04-17 05:38] LABS: Prothrombin Time (Protime)PT. 27.0 SECONDS (11.7-14.9)
[2025-04-17] MEDS: 0.9% Normal Saline (1000mL) 1,000 ML 75 ML IV (05:42)
[2025-04-17 06:39] LABS: Anion Gap 11 (5-15); BUN 4 mg/dL (4-19); BUN/Creat Ratio 4.2 RATIO (10-20); Calcium,Total 8.3 mg/dL (7.6-11.0); Carbon Dioxide 16.0 mmol/L (21.0-32.0); Chloride 113 mmol/L (98-108); Estimated Creatinine Clearance 42.74 ml/min (50-250); Glucose 95 mg/dL (70-99); Potassium 3.8 mmol/L (3.3-5.1)
[2025-04-17] MEDS: buPROPion (XL) 150 MG TABLET.XL PO ×2 (09:12→20:53)
[2025-04-17 12:13] VITALS: BP 144/88; PULSE 70; RESP 16; TEMP 36.8; O2SAT 98
[2025-04-17 14:43] VITALS: BP 145/79; PULSE 65; RESP 16; TEMP 36.9; O2SAT 96
--- NOTE | 2025-04-17 14:59 | PCM.PN.HOSP ---
Reason for Visit Chief Complaint: Abdominal pain Subjective Subjective Initially this morning patient had some belly pain and nausea with no vomiting, that is since resolved and is feeling much better from that standpoint though still pretty weak overall, has not yet had a bowel movement today but reports she had a significant amount yesterday with a Gastrografin. Objective Data Objective Data Vital Signs: Vital Signs Temp Pulse Resp BP Pulse Ox O2 Del Method 98.4 F 65 16 145/79 H 96 Room Air 04/17/25 14:43 04/17/25 14:43 04/17/25 14:43 04/17/25 14:43 04/17/25 14:43 04/17/25 14:43 Oxygen Delivery Method Room Air Weight: 66.1 kg Body Mass Index (BMI) 27.5 Intake & Output: Intake and Output for Last 24 Hours 04/15/25 04/16/25 04/17/25 23:59 23:59 23:59 Intake Total 1000 / 1000 2765 / 2765 2060. / 2060. Balance 1000 / 1000 2765 / 2765 / Lab / Micro Data 04/17/25 05:12 04/17/25 05:12 Labs: Laboratory Results - last 24 hr 04/17/25 05:12: WBC 6.3, RBC 3.12 L, Hgb 9.5 L, Hct 28.2 L, MCV 90.4, MCH 30.4, MCHC 33.7, RDW Std Deviation 50.3 H, RDW Coeff of Neno 15.3 H, Plt Count 217, MPV 10.6, Immature Gran % (Auto) 0.300, Neut % (Auto) 52.5, Lymph % (Auto) 32.9, Surry % (Auto) 8.4, Eos % (Auto) 5.1 H, Baso % (Auto) 0.8, Absolute Neuts (auto) 3.3, Absolute Lymphs (auto) 2.07, Nucleated RBC % 0, PT 27.0 H, INR 2.4, Sodium 140, Potassium 3.8, Chloride 113 H, Carbon Dioxide 16.0 L, Anion Gap 11, BUN 4, Creatinine 1.02, Estim Creat Clear Calc 42.74 L, Est GFR (MDRD) Non-Af 58 L, BUN/Creatinine Ratio 4.2 L, Glucose 95, Calcium 8.3 04/17/25 09:05: Lactic Acid < 1.0 Physical Exam Narrative General: Alert, oriented, no apparent distress HEENT: Atraumatic, normocephalic Eyes: Anicteric, normal conjunctiva, extraocular movements grossly intact Neck: Supple Respiratory: Clear to auscultation bilaterally, normal respiratory effort Cardiovascular: Regular rate and rhythm GI: Soft, no significant tenderness with no rebound, guarding, rigidity Extremities: No edema Musculoskeletal: Moving all extremities Neuro: No overt focal neurological deficits Skin: No rashes appreciated Psych: Cooperative Assessment & Plan Assessment/Plan (1) Abdominal pain: QUALIFIERS: Abdominal location: generalized Qualified Code(s): R10.84 - Generalized abdominal pain PLAN: Plan #Ileus versus small bowel obstruction ? She has had multiple abdominal surgeries in the past ? Continue with IV fluids, encourage ambulation ?Continue with her PPI, will discontinue Reglan ? Consult general surgery ? She is on nabumetone for chronic pain, which can cause constipation ?KUB with signs of ileus with no transition point or air-fluid levels, currently n.p.o., given her continued slow recovery we will do a small bowel follow-through with Gastrografin -04/17: Patient had a bowel movement with a lot of output after Gastrografin and was able to tolerate eating last night, had some transient abdominal pain and nausea earlier today but it resolved by the time my evaluation. Going to try to continue to assess how patient is doing with diet, advised to resume eating the food she was supposed to eat at home but to eat small amounts more frequently to see if this would help prevent further decompensation. Patient verbalized her understanding. Chronic medical problems and/or problems not being actively addressed during today's encounter: # Hypothyroidism ? Stable ? Continue with Synthroid # GERD ? Stable ? Continue with PPI # Anxiety/depression/chronic pain ? Stable ? Continue with her home medications # History of DVT ? This is not an acute or recent DVT therefore we will just continue with her Coumadin DVT: Coumadin Time spent in the patient's overall evaluation,decision-making process, review of diagnostic data, adjustment of management, discussion with other providers, nursing nursing and ancillary staff involved in patient's care documentation, 37 Minutes Charges/Coding Visit Charges Inpatient E&M: 57474 Subs Hosp L2
[2025-04-17 20:50] VITALS: BP 157/80; PULSE 69; RESP 16; TEMP 36.6; O2SAT 98
[2025-04-18 02:15] VITALS: BP 151/66; PULSE 75; RESP 16; TEMP 36.9; O2SAT 95
[2025-04-18 07:20] LABS: Hematocrit 27.6 % (37-47); Hemoglobin 9.3 g/dL (12.0-15.0); Immature Granulocytes Count 0.010 X10^3/uL (0.0-0.0); Mean Corp Hgb Conc 33.7 g/dL (32-36); Mean Corpuscular Volume 88.5 fL (81-99); Mean Platelet Vol. 10.3 fl (6.2-12.0); NRBC Flagged by Analyzer 0 % (0-5); Platelet Count 233 K/mm3 (150-450); RBC Distribution Width CV 15.4 % (11.6-14.6); RBC Distribution Width SD 50.2 fl (35.1-43.9); Red Blood Count 3.12 M/mm3 (4.2-5.4); White Blood Count 5.9 K/mm3 (4.4-11.0)
[2025-04-18 08:07] LABS: Anion Gap 10 (5-15); BUN 5 mg/dL (4-19); BUN/Creat Ratio 5.1 RATIO (10-20); Calcium,Total 8.3 mg/dL (7.6-11.0); Carbon Dioxide 19.9 mmol/L (21.0-32.0); Chloride 112 mmol/L (98-108); Estimated Creatinine Clearance 42.74 ml/min (50-250); Glucose 100 mg/dL (70-99); Potassium 3.4 mmol/L (3.3-5.1)
[2025-04-18 08:15] VITALS: BP 156/87; PULSE 62; RESP 18; TEMP 36.7; O2SAT 97
[2025-04-18 08:35] LABS: Prothrombin Time (Protime)PT. 26.9 SECONDS (11.7-14.9)
[2025-04-18] MEDS: Polyethylene Glycol 3350 17 GM PACKET PO (08:43)
[2025-04-18] MEDS: 0.9% Saline Lock 10 ML Syringe IV (09:34)
[2025-04-18] MEDS: buPROPion (XL) 150 MG TABLET.XL PO (10:34)
--- NOTE | 2025-04-18 12:01 | CASEMGMT ---
DAVID ANTHONY NOTE: Per Dr Oliver, if pt tolerates lunch today, pt will be discharged home. DAVID ANTHONY informed pt inquiring about HHC. PT/OT notes reviewed. No additional therapy recommended. Pt ambulates w/walker. DAVID ANTHONY to room. Introduced self and role. Pt resting in bed. She states she has had HHC in the past and inquiring about this again. Discussed MCR's homebound criteria. Pt states she is not currently homebound, stating she is able to leave the house and does drive places on occasion. She states she does have stairs to get in/out of her home but she is able to navigate them, she just takes them carefully. She declines wanting any OP therapy as well. She was made aware to f/u with PCP if any time in the future she becomes homebound. She voices appreciation. Pt offered/accepted a list of private-duty home care agencies. She states she does think she wants an aide at this time, but is appreciative to have the info for the future. She denies having other discharge needs or concerns. Lester MACDONALD RN, CM
[2025-04-18 13:23] VITALS: BP 156/71; PULSE 68; RESP 18; TEMP 36.6; O2SAT 97
--- NOTE | 2025-04-18 15:24 | DCINST_ITS ---
Discharge Instructions DC O2, CPAP, BIPAP needs Home O2 Discharge instructions: No Dressing / Incision Discharge Activity: - (Increase activity as tolerated) Follow Up Care Test Results: Test results from this visit will be discussed in further detail at your follow- up appointment, if applicable. Discharge Plan Admission Admit Date/Time: 04/12/25 19:46 Primary Reason for Your Visit: Abdominal pain Attending Provider: Ivon Oliver Primary Care Provider: Jaison Hill Consulting Providers: Mike Queen; Ana Laura Lennon; Aly Fragoso Instructions Patient Instructions: ED Fall Prevention Additional Instructions / Restrictions: -Please call your primary care provider's office upon discharge to schedule a hospital follow up within 1 week. -For any concerning signs or symptoms please call 911 or proceed to the nearest emergency department Discharge Orders/Prescriptions Prescriptions: Continued alprazolam [Xanax] 1 mg Tablet 1 mg PO BID levothyroxine 50 mcg Tablet 50 mcg PO DAILY zolpidem [Ambien] 10 mg Tablet 10 mg PO QHS esomeprazole magnesium 20 mg capsule,delayed release(DR/EC) 20 mg PO DAILY ezetimibe 10 mg Tablet 10 mg PO DAILY bupropion HCl 150 mg tablet extended release 24 hr 150 mg PO BID docusate sodium 100 mg capsule 100 mg PO BID Patient Comments: TAKE 1 CAPSULE BY MOUTH TWICE DAILY ropinirole 0.5 mg tablet 0.5 mg PO BID PRN (Reason: restless legs) warfarin 5 mg tablet 5 mg PO DAILY buspirone 15 mg tablet 15 mg PO BID Breztri Aerosphere 160-9-4.8 mcg/actuation HFA aerosol inhaler 2 inh inhalation BID PRN (Reason: breathing) polyethylene glycol 3350 [Miralax] 17 gram/dose powder 17 g PO BID ondansetron HCl 4 mg Tablet 4 mg PO Q6H PRN (Reason: Nausea) Qty: 10 0RF tramadol 50 mg tablet 50 mg PO Q6H PRN PRN (Reason: pain) furosemide 20 mg tablet 10 mg PO DAILY nabumetone 750 mg tablet 750 mg PO Q12H PRN PRN (Reason: pain) albuterol sulfate 90 mcg/actuation HFA aerosol inhaler 2 puff inhalation Q6H PRN PRN (Reason: wheezing) Referrals / Follow Up: Jaison Hill MD [Primary Care Provider] - Within 1 Week Disposition Disposition (needs filled in before D/C Order can be placed): Home, Self Care
[2025-04-18 15:26] VITALS: BP 151/71; PULSE 68; RESP 18; TEMP 36.7; O2SAT 96
--- NOTE | 2025-04-18 15:26 | PCM.DC.SUM ---
Providers Date of Admission: 04/12/25 Date of Discharge: 04/18/25 Primary Care Physician: Dr. Jaison Hill MD Consultations 04/16/25 08:28 Consult: General Surgery Routine Consulting Provider: Ana Laura Lennon Reason for Consult: SBO vs Ileus, discussed yesterday EMERGENT Consult: No MD Notified: Yes Date Notified: 04/16/25 Time Notified: 08:28 Method of Notification: Text Reason For Visit: ILEUS Diagnosis Discharge Diagnosis (1) Abdominal pain: Status: Acute Code(s): R10.9 - Unspecified abdominal pain Qualifiers: Abdominal location: generalized Qualified Code(s): R10.84 - Generalized abdominal pain Plan #Ileus # History of bowel resections and multiple abdominal surgeries # Hypothyroidism # GERD # Anxiety/depression/chronic pain # History of DVT Medications at Discharge Home Medications alprazolam 1 mg tablet (Xanax) 1 mg PO BID anxiety 12/11/22 bupropion HCl 150 mg 24 hr tablet, extended release 150 mg PO BID mental health 12/11/22 esomeprazole magnesium 20 mg capsule,delayed release 20 mg PO DAILY reflux 12/11/22 ezetimibe 10 mg tablet 10 mg PO DAILY cholesterol 12/11/22 levothyroxine 50 mcg tablet 50 mcg PO DAILY thyroid 12/11/22 zolpidem 10 mg tablet (Ambien) 10 mg PO QHS sleep 12/11/22 docusate sodium 100 mg capsule 100 mg PO BID stool softner 03/31/23 budesonide 160 mcg-glycopyr 9 mcg-formot 4.8 mcg/actuation HFA inhaler (Breztri Aerosphere) 2 inh inhalation BID PRN breathing 12/06/23 buspirone 15 mg tablet 15 mg PO BID mental health 12/06/23 polyethylene glycol 3350 17 gram/dose oral powder (Miralax) 17 g PO BID bowels 12/06/23 ropinirole 0.5 mg tablet 0.5 mg PO BID PRN restless legs 12/06/23 warfarin 5 mg tablet 5 mg PO DAILY blood thinner 12/06/23 ondansetron HCl 4 mg tablet 4 mg PO Q6H PRN Nausea #10 tabs 12/13/23 furosemide 20 mg tablet 10 mg PO DAILY 09/14/24 tramadol 50 mg tablet 50 mg PO Q6H PRN PRN pain 09/14/24 albuterol sulfate 90 mcg/actuation aerosol inhaler 2 puff inhalation Q6H PRN PRN wheezing 04/12/25 nabumetone 750 mg tablet 750 mg PO Q12H PRN PRN pain 04/12/25 Hospital Course Summary of Care Provided Minutes Spent on Discharge: 32 Hospital Course: Per HPI: KAITLYN BAIRD, is a 74 F who presents with abdominal pain that began . This is a 74-year-old female that has had a bowel resections in the past presents with a 1 week history of abdominal pain. The patient stated that this past Sunday she had eaten a hamburger, and when she is been told to avoid, and was having abdominal pain. Typically these will resolve spontaneously within a few days but this did not. Patient is having umbilical abdominal pain and has had intermittent abdominal distention. Decreased flatus as well as decreased bowel movements. But has not gotten better so she presented to the emergency room for evaluation. She had a CAT scan that showed mild segmental dilation small bowel. No significant obstruction proximally. Patient received hydromorphone and fentanyl and still is having abdominal pain but is feeling better. Given the severity of her symptoms, the hospitalist service was contacted for admission. INTERVAL HISTORY: Patient was treated conservatively, given continued symptoms she had Gastrografin study ordered and surgery consulted, by the time surgery saw patient she had had bowel movement with improvement in symptoms with Gastrografin so surgery signed off. Patient continued to improve, initially had another episode of abdominal pain and nausea that was self-limited, after discussing with patient she had eaten a decent amount due to not being able to eat for so long, advised smaller more frequent meals and to eat similar to how she was advised by her clinic physicians, patient did improve this way with overall continued improvement. Patient had another bowel movement today, occasionally gets some abdominal cramps or nausea but all fairly short-lived and self-limited with no signs of further ileus or obstruction, patient is able to get up and walk around did not require placement. She was comfortable with plan to go home and follow-up with her outpatient providers. Physical Exam Narrative General: Alert, oriented, no apparent distress HEENT: Atraumatic, normocephalic Eyes: Anicteric, normal conjunctiva, extraocular movements grossly intact Neck: Supple Respiratory: Clear to auscultation bilaterally, normal respiratory effort Cardiovascular: Regular rate and rhythm GI: Soft, no tenderness with no rebound, guarding, rigidity Extremities: No edema Musculoskeletal: Moving all extremities Neuro: No overt focal neurological deficits Skin: No rashes appreciated Psych: Cooperative Weight / BMI Weight Weight: 66.1 kg Body Mass Index (BMI) 27.5 ABG / Lab / Microbiology Data 04/18/25 06:38 04/18/25 06:38 Laboratory: Laboratory Results - last 24 hr 04/18/25 06:38: WBC 5.9, RBC 3.12 L, Hgb 9.3 L, Hct 27.6 L, MCV 88.5, MCH 29.8, MCHC 33.7, RDW Std Deviation 50.2 H, RDW Coeff of Neno 15.4 H, Plt Count 233, MPV 10.3, Immature Gran % (Auto) 0.200, Neut % (Auto) 45.2 L, Lymph % (Auto) 41.7 H, Esmeralda % (Auto) 8.8, Eos % (Auto) 3.4, Baso % (Auto) 0.7, Absolute Neuts (auto) 2.7, Absolute Lymphs (auto) 2.47, Nucleated RBC % 0, PT 26.9 H, INR 2.4, Sodium 142, Potassium 3.4, Chloride 112 H, Carbon Dioxide 19.9 L, Anion Gap 10, BUN 5, Creatinine 1.02, Estim Creat Clear Calc 42.74 L, Est GFR (MDRD) Non-Af 58 L, BUN/Creatinine Ratio 5.1 L, Glucose 100 H, Calcium 8.3 D/C Instructions DC O2, CPAP, BIPAP Needs Home O2 Discharge instructions: No Meaningful Use Info Meaningful Use Meaningful Use Diagnoses (Choose all that apply): None applicable Discharge Plan Admission Admit Date/Time: 04/12/25 19:46 Primary Reason for Your Visit: Abdominal pain Attending Provider: Ivon Oliver Primary Care Provider: Jaison Hill Consulting Providers: Mike Queen; Ana Laura Lennon; Aly Fragoso Instructions Patient Instructions: ED Fall Prevention Additional Instructions / Restrictions: -Please call your primary care provider's office upon discharge to schedule a hospital follow up within 1 week. -For any concerning signs or symptoms please call 911 or proceed to the nearest emergency department Discharge Orders/Prescriptions Prescriptions: Continued alprazolam [Xanax] 1 mg Tablet 1 mg PO BID levothyroxine 50 mcg Tablet 50 mcg PO DAILY zolpidem [Ambien] 10 mg Tablet 10 mg PO QHS esomeprazole magnesium 20 mg capsule,delayed release(DR/EC) 20 mg PO DAILY ezetimibe 10 mg Tablet 10 mg PO DAILY bupropion HCl 150 mg tablet extended release 24 hr 150 mg PO BID docusate sodium 100 mg capsule 100 mg PO BID Patient Comments: TAKE 1 CAPSULE BY MOUTH TWICE DAILY ropinirole 0.5 mg tablet 0.5 mg PO BID PRN (Reason: restless legs) warfarin 5 mg tablet 5 mg PO DAILY buspirone 15 mg tablet 15 mg PO BID Breztri Aerosphere 160-9-4.8 mcg/actuation HFA aerosol inhaler 2 inh inhalation BID PRN (Reason: breathing) polyethylene glycol 3350 [Miralax] 17 gram/dose powder 17 g PO BID ondansetron HCl 4 mg Tablet 4 mg PO Q6H PRN (Reason: Nausea) Qty: 10 0RF tramadol 50 mg tablet 50 mg PO Q6H PRN PRN (Reason: pain) furosemide 20 mg tablet 10 mg PO DAILY nabumetone 750 mg tablet 750 mg PO Q12H PRN PRN (Reason: pain) albuterol sulfate 90 mcg/actuation HFA aerosol inhaler 2 puff inhalation Q6H PRN PRN (Reason: wheezing) Referrals / Follow Up: Jaison Hill MD [Primary Care Provider] - Within 1 Week Disposition Disposition (needs filled in before D/C Order can be placed): Home, Self Care Charges/Coding Visit Charges Inpatient E&M: 27305 Disch Hosp >30min
== END 2025-04-18 16:05 | disposition home or self-care (01) | DRG 390 ==
LOC: ED 20:14 → MS3 21:16
PROVIDERS: Family Medicine; Emergency Provider Emergency Medicine; Visit Provider Internal Medicine
DX: K56.7 Ileus, unspecified (principal); E03.9 Hypothyroidism, unspecified; N18.30 Chronic kidney disease, stage 3 unspecified; F32.A Depression, unspecified; E78.5 Hyperlipidemia, unspecified; K21.9 Gastro-esophageal reflux disease without esophagitis; F41.9 Anxiety disorder, unspecified; Z79.51 Long term (current) use of inhaled steroids; Z79.899 Other long term (current) drug therapy; Z79.01 Long term (current) use of anticoagulants; Z86.718 Personal history of other venous thrombosis and embolism
CPT/HCPCS: 36415; 74018; 74177; 74250; 80048; 80053; 83605; 83690; 85025; 85610; 94640; 97116; 97162; 97166; 97530; 97535; 99285; Q9967; A4216; J2405

== ENCOUNTER 2025-05-29 19:07 | Emergency (ER) | payer MEDICARE, SELFPAY ==
[2025-05-29 19:09] VITALS: BP 133/88; PULSE 75; RESP 12; TEMP 36.4; O2SAT 96; BMI 31.3
--- NOTE | 2025-05-29 19:43 | CT_ITS ---
PROCEDURE: CT BRAIN/HEAD WITHOUT CONTRAST; CTA HEAD AND NECK W/ CONTRAST 05/29/2025 REASON FOR EXAM: ACUTE OCCIPITAL HEADACHE WITH NAUSEA AND VOMITING TECHNIQUE: Procedure Code: CTBR; CTCTA.HDNCK Modality: CT Procedure: BRAIN/HEAD WITHOUT CONTRAST; CTA HEAD AND NECK W/ CONTRAST Multiplanar 2D reconstructions, 3D and MIP postprocessing was performed. 98 cc of Isovue 370 intravenous contrast was administered. One or more dose reduction techniques were used (e.g., Automated exposure control, adjustment of the mA and/or kV according to patient size, use of iterative reconstruction technique. RADIATION DOSE SUMMARY: DLP: 1476.22 mGycm COMPARISON: None available. FINDINGS: CTA HEAD: Patent intracranial arterial vasculature. No large vessel occlusion, flow- limiting stenosis, saccular aneurysm, or vascular malformation identified. Dural venous sinuses appear patent. CTA NECK: Common origins of the left common carotid and right innominate arteries from the aortic arch. Bilateral cervical carotid and codominant vertebral arteries are patent without significant stenosis. No luminal irregularity to suggest aneurysm or dissection. NONCONTRAST CT HEAD: No acute intracranial hemorrhage, extra-axial collection, mass effect or evidence of acute infarct. Mild generalized brain parenchymal volume loss. Orbital contents are unremarkable. Intact skull base and calvarium. Well-aerated paranasal sinuses and mastoid air cells. CT/CTA Head AND Neck W/ Contrast IMPRESSION: No acute intracranial abnormality. Normal CTA of the head and neck. Reading Location: [facility]
--- NOTE | 2025-05-29 19:43 | CT_ITS ---
PROCEDURE: CT BRAIN/HEAD WITHOUT CONTRAST; CTA HEAD AND NECK W/ CONTRAST 05/29/2025 REASON FOR EXAM: ACUTE OCCIPITAL HEADACHE WITH NAUSEA AND VOMITING TECHNIQUE: Procedure Code: CTBR; CTCTA.HDNCK Modality: CT Procedure: BRAIN/HEAD WITHOUT CONTRAST; CTA HEAD AND NECK W/ CONTRAST Multiplanar 2D reconstructions, 3D and MIP postprocessing was performed. 98 cc of Isovue 370 intravenous contrast was administered. One or more dose reduction techniques were used (e.g., Automated exposure control, adjustment of the mA and/or kV according to patient size, use of iterative reconstruction technique. RADIATION DOSE SUMMARY: DLP: 1476.22 mGycm COMPARISON: None available. FINDINGS: CTA HEAD: Patent intracranial arterial vasculature. No large vessel occlusion, flow- limiting stenosis, saccular aneurysm, or vascular malformation identified. Dural venous sinuses appear patent. CTA NECK: Common origins of the left common carotid and right innominate arteries from the aortic arch. Bilateral cervical carotid and codominant vertebral arteries are patent without significant stenosis. No luminal irregularity to suggest aneurysm or dissection. NONCONTRAST CT HEAD: No acute intracranial hemorrhage, extra-axial collection, mass effect or evidence of acute infarct. Mild generalized brain parenchymal volume loss. Orbital contents are unremarkable. Intact skull base and calvarium. Well-aerated paranasal sinuses and mastoid air cells. CT/Brain/Head without Contrast IMPRESSION: No acute intracranial abnormality. Normal CTA of the head and neck. Reading Location: [facility]
[2025-05-29 20:14] LABS: Hematocrit 30.7 % (37-47); Hemoglobin 10.0 g/dL (12.0-15.0); Immature Granulocytes Count 0.050 X10^3/uL (0.0-0.0); Mean Corp Hgb Conc 32.6 g/dL (32-36); Mean Corpuscular Volume 93.0 fL (81-99); Mean Platelet Vol. 9.8 fl (6.2-12.0); NRBC Flagged by Analyzer 0 % (0-5); Platelet Count 329 K/mm3 (150-450); RBC Distribution Width CV 14.1 % (11.6-14.6); RBC Distribution Width SD 47.9 fl (35.1-43.9); Red Blood Count 3.30 M/mm3 (4.2-5.4); White Blood Count 8.1 K/mm3 (4.4-11.0)
[2025-05-29 20:46] LABS: Anion Gap 13 (5-15); BUN 16 mg/dL (4-19); BUN/Creat Ratio 13.0 RATIO (10-20); Calcium,Total 8.8 mg/dL (7.6-11.0); Carbon Dioxide 19.7 mmol/L (21.0-32.0); Chloride 99 mmol/L (98-108); Estimated Creatinine Clearance 38.10 ml/min (50-250); Glucose 88 mg/dL (70-99); Potassium 4.6 mmol/L (3.3-5.1)
[2025-05-29 21:00] VITALS: PULSE 63; RESP 18; O2SAT 100
--- NOTE | 2025-05-29 22:49 | EX.ED.VIS.HA ---
HPI History of Present Illness Chief Complaint: Headache Detail of Chief Complaint: Abrupt occipital headache with nausea and vomiting Informant: patient Onset/Context/Timing Onset: Today and Hours Context: Sudden Timing: Continuous and Waxes and wanes Quality -Headache: Positive for Other (Pain) Location: Occipital and intermittent left lower quadrant pain x 3 years Current Severity: Severe Maximum Severity: Severe Worsened by: Light and nothing Relieved by: Nothing Associated Symptoms/Injury Associated Symptoms: Positive for Nausea, Vomiting and Photophobia; Negative for Fever, Sore Throat, Sinus Pressure, Numbness, Tingling, Preceding Aura, Visual Changes, Blurred Vision or Visual Loss Injury - OSCAR: Negative for Direct Trauma Narrative Narrative: Patient is a 74-year-old woman. She has history of anxiety and depression, hypothyroidism, on long-term anticoagulant who presents with a thunderclap occipital headache that occurred while doing dishes. She had nausea and vomiting several times. Tonight coffee-ground emesis or hematemesis. She endorses photophobia. Denies double vision blurred vision loss of vision. She denies ringing in ears decreased hearing. She denies neck pain or neck stiffness. She denies cardiac or respiratory symptoms. She does complain of intermittent left lower quadrant abdominal pain has been going on for 3 years. She states this pain is slightly worse. She did have 1 episode of diarrhea. There was no blood noted in the diarrhea nor was there any mucus. She denies black or maroon-colored stool/diarrhea. She had no urologic symptoms. Prior similar symptoms: No Recent Illness/Hospitalization: No [facility] Medical History Irritable bowel Scarlet fever Depression Hyperthyroidism DVT (deep venous thrombosis) CKD (chronic kidney disease), stage III Chronic anemia History of venous thromboembolism History of small bowel obstruction GERD (gastroesophageal reflux disease) HLD (hyperlipidemia) Anxiety and depression Hypothyroidism Home Medications ?Medication ?Instructions ?Recorded ?Last Taken ?Type alprazolam 1 mg tablet (Xanax) 1 mg PO BID anxiety 12/11/22 Unknown History bupropion HCl 150 mg 24 hr tablet, 150 mg PO BID mental health 12/11/22 Unknown History extended release esomeprazole magnesium 20 mg 20 mg PO DAILY reflux 12/11/22 Unknown History capsule,delayed release ezetimibe 10 mg tablet 10 mg PO DAILY cholesterol 12/11/22 Unknown History levothyroxine 50 mcg tablet 50 mcg PO DAILY thyroid 12/11/22 Unknown History zolpidem 10 mg tablet (Ambien) 10 mg PO QHS sleep 12/11/22 Unknown History docusate sodium 100 mg capsule 100 mg PO BID stool softner 03/31/23 Unknown History budesonide 160 mcg-glycopyr 9 2 inh inhalation BID PRN breathing 12/06/23 Unknown History mcg-formot 4.8 mcg/actuation HFA inhaler (Breztri Aerosphere) buspirone 15 mg tablet 15 mg PO BID mental health 12/06/23 Unknown History polyethylene glycol 3350 17 17 g PO BID bowels 12/06/23 Unknown History gram/dose oral powder (Miralax) ropinirole 0.5 mg tablet 0.5 mg PO BID PRN restless legs 12/06/23 Unknown History warfarin 5 mg tablet 5 mg PO DAILY blood thinner 12/06/23 Unknown History ondansetron HCl 4 mg tablet 4 mg PO Q6H PRN Nausea #10 tabs 12/13/23 Unknown Rx furosemide 20 mg tablet 10 mg PO DAILY 09/14/24 Unknown History tramadol 50 mg tablet 50 mg PO Q6H PRN PRN pain 09/14/24 Unknown History albuterol sulfate 90 mcg/actuation 2 puff inhalation Q6H PRN PRN 04/12/25 Unknown History aerosol inhaler wheezing nabumetone 750 mg tablet 750 mg PO Q12H PRN PRN pain 04/12/25 Unknown History Allergy/AdvReac Type Severity Reaction Status Date / Time prochlorperazine (From Allergy Severe NEEDS Verified 05/29/25 19:09 Compazine) FOLLOW-UP scopolamine Allergy Intermediate Nausea Verified 05/29/25 19:09 cefdinir (From Omnicef) Allergy Hives Verified 05/29/25 19:09 codeine Allergy NEEDS Verified 05/29/25 19:09 FOLLOW-UP latex Allergy Anaphylaxis Verified 05/29/25 19:09 shellfish derived Allergy Anaphylaxis Verified 05/29/25 19:09 levofloxacin (From Levaquin) AdvReac Vomiting Verified 05/29/25 19:09 [id number] Reductase AdvReac NEEDS Verified 05/29/25 19:09 Inhibitor FOLLOW-UP Family History Mother Heart disease COPD (chronic obstructive pulmonary disease) Father Heart disease Hypertension CAD (coronary artery disease) Myocardial infarction Surgical History History of total abdominal hysterectomy History of colon surgery History of appendectomy History of cholecystectomy Social History household members: none Smoking Status: Never smoker alcohol intake: never substance use type: does not use ROS ROS ED Constitutional Constitutional ED: Denies chills, fever(s), subjective, sweats or weight loss Eyes Eyes: Reports other Details: Positive photophobia ; Denies blurry vision, change in vision or diplopia ENT ENT ED: Denies ear pain, rhinorrhea or sore throat Cardiovascular Cardiovascular: Denies chest pain or palpitations Respiratory/Chest Respiratory/Chest: Denies cough, dyspnea or dyspnea on exertion Gastrointestinal Gastrointestinal: Reports abdominal pain and other Details: Detailed HPI narrative ; Denies constipation, diarrhea, melena, nausea or vomiting Genitourinary Genitourinary ED: Denies dysuria, hematuria or urinary frequency Musculoskeletal Musculoskeletal: Denies arthralgias, back pain, myalgias or neck pain Integumentary Denies rash Neurologic Neurologic: Reports headache(s); Denies paresthesias or weakness Psychiatric Psychiatric: Reports anxiety Endocrine Endocrinology: Denies polydipsia or polyphagia Hematologic/Lymphatic Hematologic/Lymphatic: Denies easy bleeding or easy bruising EXAM Physical Exam Const Vital Signs: 05/29/25 19:09 05/29/25 21:00 05/29/25 23:00 Temperature 97.6 F L Temperature Source Oral Pulse Rate 75 63 64 Respiratory Rate 12 18 16 Blood Pressure 133/88 H 143/76 H Blood Pressure Mean 103 98 Pulse Ox 96 100 97 Oxygen Delivery Method Room Air Room Air Positive well nourished and well developed Constitutional Narrative: Patient appears uncomfortable. Her vitals were noted. General Appearance ED: well developed; Negative for cyanotic, diaphoretic or pallor HEENT Reports normocephalic, TM's clear and moist mucous membranes atraumatic; Negative for tenderness, temporal artery tenderness or vesicular rash Face and Sinus: Negative for sinus tenderness Tympanic Membrane ED: Yes TM's clear Eyes PERRL and EOMs intact bilaterally Eyes Narrative: There is no nystagmus. There is no visual field cuts. Cup-to-disc ratio is normal with no papilledema. General Eye ED: Negative for pale conjunctiva or scleral icterus Neck no lymphadenopathy, supple, no meningeal signs and no JVD Resp normal respiratory effort and clear to auscultation bilaterally Cardio regular rate, regular rhythm, S1 normal heart sound, S2 normal heart sound and no murmurs GI non-tender and non-distended Auscultation: normoactive bowel sounds Palpation: soft; Negative for firm, tender or guarding Back/Spine no CVA tenderness Extremity normal to inspection, full ROM and normal capillary refill General Extremety ED: Negative for edema General Extremity: Negative for edema Neuro oriented x3, CN's II-XII intact bilaterally and no sensory deficits noted Neuro Narrative: There is no dysmetria. There is no clonus. Clinical Babinski on the right. Nichols Coma Scale: document GCS findings Spontaneous Obeys Commands Oriented 15 Sensorium / Orientation: awake and alert Coordination / Balance: [id number] test normal and [id number]-tu-[id number] test normal Speech: speech normal Motor Exam: strength 5/5 throughout Psych Mood & Affect: depressed Skin General Skin Exam: turgor normal; Negative for elasticity normal, jaundice or pallor Lesions: no lesions Rashes: no rashes MDM MDM MDM Narrative Medical decision making narrative: Differential diagnosis includes subarachnoid hemorrhage, intercranial bleed, vasculitis, sinusitis and specifically sphenoid patient is on anticoagulant. In light of the thunderclap headache on anticoagulant will obtain CT of the head to rule intracranial bleed if there is no bleed will obtain CTA of the head neck to evaluate for aneurysm since LP is contraindicated due to the fact that patient is on warfarin. I was informed by the nurses notes the patient is requesting UA and PT/INR. Lab Data Attestation: I reviewed the patient's lab results. Lab results narrative: CBC reveals anemia with normal indices. Electrolyte panel was elevated creatinine with an estimated GFR of 14. Patient was informed that her INR is subtherapeutic. She states she was told by her doctor to hold the warfarin for the past 5 days. She was instructed to restart since she has had nonprovoked clots. Her headache has resolved. Urinalysis is unremarkable. Labs: Laboratory Results - last 24 hr 05/29/25 05/29/25 05/29/25 20:06 23:40 23:54 WBC 8.1 RBC 3.30 L Hgb 10.0 L Hct 30.7 L MCV 93.0 MCH 30.3 MCHC 32.6 RDW Std Deviation 47.9 H RDW Coeff of Neno 14.1 Plt Count 329 MPV 9.8 Immature Gran % (Auto) 0.600 Neut % (Auto) 54.0 Lymph % (Auto) 32.3 [place] % (Auto) 11.5 H Eos % (Auto) 1.0 Baso % (Auto) 0.6 Absolute Neuts (auto) 4.4 Absolute Lymphs (auto) 2.61 Nucleated RBC % 0 ESR Cancelled PT 12.9 INR 1.0 APTT 25.1 Sodium 132 L Potassium 4.6 Chloride 99 Carbon Dioxide 19.7 L Anion Gap 13 BUN 16 Creatinine 1.22 H Estim Creat Clear Calc 38.10 L Est GFR (MDRD) Non-Af 47 L BUN/Creatinine Ratio 13.0 Glucose 88 Calcium 8.8 Urine Color Yellow Urine Clarity Clear Urine pH 7.0 Ur Specific [place] 1.010 Urine Protein Negative Urine Glucose (UA) Normal Urine Ketones Negative Urine Occult Blood Negative Urine Nitrite Negative Urine Bilirubin Negative Urine Urobilinogen Normal Ur Leukocyte Esterase 100 H Patient requested UA. I asked her if she had dysuria frequency urgency hematuria. She denied. She states when she was discharged she had kidney problems and that is why she wants a UA. UA was ordered. Patient is also requesting PT/INR to be checked. This was ordered. Her sed rate is pending. In light of the fact that new labs have been ordered and the original test that was ordered has not been drawn we will need to turn this over to the night physician. Radiography Diagnostic Testing: Clinical Impression(s) from Imaging Studies Brain CT 05/29/25 19:43 IMPRESSION: No acute intracranial abnormality. Normal CTA of the head and neck. Reading Location: [facility] Head/Neck CTA 05/29/25 19:43 IMPRESSION: No acute intracranial abnormality. Normal CTA of the head and neck. Reading Location: [facility] CT of the head and CTA of the head and neck results were reviewed. The CT of the head images were reviewed by me. Agree there is no acute abnormality. Since patient has no evidence of hemorrhage we will treat her headache with Toradol, Reglan and Benadryl. Treatment and Re-Evaluation Narrative: Her headache is resolved. She is no longer having abdominal pain. Discharge Plan Triage Chief Complaint: Headache ED Provider: Mika Anderson Dx/Rx/DC Orders Clinical Impression: Headache, primary thunderclap, Nausea & vomiting, Subtherapeutic anticoagulation, Elevated blood pressure reading, Chronic anemia, Renal insufficiency Instructions: Self-Care for Headaches, ED High Blood Pressure Hypertension Prescriptions: No Action alprazolam [Xanax] 1 mg Tablet 1 mg PO BID levothyroxine 50 mcg Tablet 50 mcg PO DAILY zolpidem [Ambien] 10 mg Tablet 10 mg PO QHS esomeprazole magnesium 20 mg capsule,delayed release(DR/EC) 20 mg PO DAILY ezetimibe 10 mg Tablet 10 mg PO DAILY bupropion HCl 150 mg tablet extended release 24 hr 150 mg PO BID docusate sodium 100 mg capsule 100 mg PO BID Patient Comments: TAKE 1 CAPSULE BY MOUTH TWICE DAILY ropinirole 0.5 mg tablet 0.5 mg PO BID PRN (Reason: restless legs) warfarin 5 mg tablet 5 mg PO DAILY buspirone 15 mg tablet 15 mg PO BID Breztri Aerosphere 160-9-4.8 mcg/actuation HFA aerosol inhaler 2 inh inhalation BID PRN (Reason: breathing) polyethylene glycol 3350 [Miralax] 17 gram/dose powder 17 g PO BID ondansetron HCl 4 mg Tablet 4 mg PO Q6H PRN (Reason: Nausea) Qty: 10 0RF tramadol 50 mg tablet 50 mg PO Q6H PRN PRN (Reason: pain) furosemide 20 mg tablet 10 mg PO DAILY nabumetone 750 mg tablet 750 mg PO Q12H PRN PRN (Reason: pain) albuterol sulfate 90 mcg/actuation HFA aerosol inhaler 2 puff inhalation Q6H PRN PRN (Reason: wheezing) Primary Care Provider: Jaison Hill Referrals: Jaison Hill MD [Primary Care Provider] - 3-5 Days Activity Restrictions/Additional Instructions: 1. Need to resume your warfarin dose. Would recommend 6 mg. 2. You need to contact your doctor regarding your elevated blood pressure. Print Language: Lao Disposition Disposition: Home, Self Care
[2025-05-29 23:00] VITALS: BP 143/76; PULSE 64; RESP 16; O2SAT 97
[2025-05-29] MEDS: DiphenhydrAMINE 50 MG/ML Syringe 25 MG IV (23:23)
--- NOTE | 2025-05-29 23:33 | ED.RN ---
this rn calls lab and requests that blood be drawn. when this rn receives report from Tika at 2200, pts labs were supposed to be drawn then.
[2025-05-29 23:46] LABS: Mucous, Urine 0 SEEN /hpf (<or=2+); Red Blood Cells-Urine 0 SEEN /hpf (0-5); Squamous Epithelial Cells - UA 0 SEEN /hpf (5-10)
[2025-05-29 23:51] LABS: Color, Urine Yellow (Yellow); Glucose, Dipstick Normal (Normal); Ketone-Dipstick Negative (Negative); Leukocyte Esterase-Dipstick 100 /ul (Negative); Nitrite-Dipstick Negative (Negative); Occult Blood-Urine Negative /ul (Negative); Protein-Dipstick Negative (Negative); Specific Gravity, Urine 1.010 (1.002-1.030); Urine Bilirubin Dipstick Negative (Negative)
[2025-05-30 00:15] LABS: Prothrombin Time (Protime)PT. 12.9 SECONDS (11.7-14.9)
[2025-05-30 00:16] LABS: Partial Thromboplast Time 25.1 Seconds (24.1-36.2)
--- NOTE | 2025-05-30 00:33 | ED.RN ---
This RN received a phone call from Massimo in the lab. Massimo explained that the patient's SED rate value has been drawn by the patient's nurse and by the cath lab and both vials have been short on blood, when ran the result showed >130, which Massimo explained would most likely inaccurate for the patient. This RN notified Dr. Justin MD and Dr. Anderson responded with that's okay because her headache is gone.
[2025-05-30 00:42] VITALS: BP 136/77; PULSE 61; RESP 16; TEMP 36.7; O2SAT 99
[2025-05-30 01:00] VITALS: BP 136/81; PULSE 61; RESP 16; O2SAT 98
== END 2025-05-30 02:08 | disposition home or self-care (01) ==
PROVIDERS: Emergency Provider Emergency Medicine; Visit Provider Emergency Medicine
DX: G44.53 Primary thunderclap headache (principal); R11.2 Nausea with vomiting, unspecified; D64.9 Anemia, unspecified; Z86.718 Personal history of other venous thrombosis and embolism; E78.5 Hyperlipidemia, unspecified; R03.0 Elevated blood-pressure reading, without diagnosis of hypertension; N28.9 Disorder of kidney and ureter, unspecified; F41.8 Other specified anxiety disorders; Z79.899 Other long term (current) drug therapy; K21.9 Gastro-esophageal reflux disease without esophagitis; E03.9 Hypothyroidism, unspecified; Z79.890 Hormone replacement therapy; Z79.01 Long term (current) use of anticoagulants; Z90.710 Acquired absence of both cervix and uterus; Z90.49 Acquired absence of other specified parts of digestive tract
CPT/HCPCS: 36415; 70450; 70496; 70498; 80048; 81001; 85025; 85610; 85730; 96374; 96375; 99285; Q9967; A4216